=== PATIENT | male | born 1965 | race Caucasian/White ===

== ENCOUNTER 2022-10-12 12:51 | Outpatient (OUT) | payer MEDICARE, MEDICAID, SELFPAY ==
--- NOTE | 2022-10-12 12:56 | CT_ITS ---
[address] [address] Patient Name: GOPAL YATES MRN: [id number] date: 1965 Sex: M Assigned Patient Location: CT Current Patient Location: CT Accession/Order Number: [id number] Exam Date: 10/12/2022 13:10 Report Date: 10/12/2022 16:35 At the request of: DOUGLAS JUÁREZ Procedure: CT chest wo con EXAMINATION: CT chest wo con HISTORY: Lymph Node Enlargement R59.9 COMPARISON: No relevant comparison available. TECHNIQUE: Multi-planar CT images were obtained without and/or with IV contrast as indicated by examination type. Axial, Coronal, and Sagittal images. Dose reduction techniques were achieved by using automated exposure control and/or adjustment of mA and/or kV according to patient size and/or use of iterative reconstruction technique. FINDINGS: LUNGS: Assess atelectasis within right lung base. No appreciable infiltrates or mass. A few tiny 3 mm calcified and noncalcified nodules scattered within the lungs. PLEURA: Small-moderate right pleural effusion, likely multinodular loculated. VASCULATURE: No abnormality. LIZBETH: No mass or adenopathy. MEDIASTINUM: No mass or adenopathy. CARDIAC: Atherosclerotic coronary artery disease. No pericardial effusion. AORTA: No aneurysm or dissection. CHEST WALL: No mass or axillary adenopathy. BONES: No bone lesion or fracture. LIMITED ABDOMEN: Numerous tiny stones within gallbladder. Limited images of the upper abdomen. OTHER: Negative. CT/CT chest wo con IMPRESSION: 1. No lymphadenopathy or suspicious hilar or enlargement. 2. Small-moderate right pleural effusion which appears to be loculated, likely multiloculated. There is associated passive atelectasis within right lung base. 3. Prominent atherosclerotic coronary artery disease. 4. Cholelithiasis. Electronically authenticated by: LEANN NARAYAN Date: 10/12/2022 16:35
== END 2022-10-12 12:52 | disposition home or self-care (01) ==
LOC: CT 12:51
PROVIDERS: PCP Family Medicine; Visit Provider Family Medicine
DX: R59.9 Enlarged lymph nodes, unspecified (principal)
CPT/HCPCS: 71250

== ENCOUNTER 2023-07-26 09:20 | Outpatient (OUT) | payer MEDICARE, SELFPAY ==
[2023-07-27 04:10] LABS: Testosterone 202 ng/dL (264-916)
== END 2023-07-26 09:21 | disposition home or self-care (01) ==
PROVIDERS: PCP Family Medicine; Visit Provider Family Medicine
DX: M25.512 Pain in left shoulder (principal)
CPT/HCPCS: 36415; 84403

== ENCOUNTER 2023-08-03 13:11 | Outpatient (OUT) | payer MEDICARE, SELFPAY ==
[2023-08-04 04:09] LABS: Testosterone 321 ng/dL (264-916)
== END 2023-08-03 13:12 | disposition home or self-care (01) ==
LOC: LAB 13:13
PROVIDERS: PCP Family Medicine; Visit Provider Family Medicine
DX: R79.89 Other specified abnormal findings of blood chemistry (principal)
CPT/HCPCS: 36415; 84403

== ENCOUNTER 2023-08-30 12:39 | Outpatient (REF) | payer MEDICARE, SELFPAY ==
[2023-08-30 15:37] LABS: Internal Control Within Normal Limits; Occult Blood Positive
== END 2023-08-30 12:40 | disposition home or self-care (01) ==
LOC: LAB 12:39
PROVIDERS: PCP Family Medicine; Visit Provider Internal Medicine
DX: D64.9 Anemia, unspecified (principal)
CPT/HCPCS: G0328

== ENCOUNTER 2023-09-08 09:13 | Outpatient (OUT) | payer MEDICARE, SELFPAY ==
--- OUTSIDE RECORDS SUMMARY | 2023-09-08 09:33 | XMS_ITS | CCD ---
Author Organization [facility] Care Team Providers Care Supervisor Roving Name Role Phone Cristobal Butts Unavailable Douglas Juárez MD Primary Care Provider Douglas Juárez MD Primary Care Provider MD Douglas Juárez Primary Care Provider MD Cristobal Butts Attending Provider [phone] Douglas Juárez MD Primary Care Provider Ford Sam Unavailable Douglas Juárez MD Primary Care Provider [phone] MD Douglas Juárez Primary Care Provider DO Lambert Blanc Emergency Provider MD Cornelio Simon Admit Provider MD Cornelio Simon Attending Provider [phone] MD Ashutosh Thomas Other Provider MD Yvonne Barboza Other Provider HARRY Griggs Other Provider MD Sohan Kellogg Other Provider HARRY Griggs Attending Provider MD Gopal Larsen Emergency Provider MD Salvador Alonso Admit Provider MD Salvador Alonso Attending Provider [phone] MD Cristobal Butts Other Provider HARRY Luis Other Provider DO Scotty Kahn Attending Provider MD Sohan Kellogg Attending Provider ABHYANKAR, CONRAD Referring Unavailable ABHYANKAR, CONRAD Attending Unavailable HOY, M Primary Care Unavailable ABHYANKAR, CONRAD Referring Unavailable HOY, M Primary Care Unavailable KARAMLOU, JOSH Referring Unavailable HOY, M Primary Care Unavailable ABHYANKAR, CONRAD Referring Unavailable HOY, M Primary Care Unavailable HOY, M Primary Care Unavailable ABHYANKAR, CONRAD Referring Unavailable HOY, M Primary Care Unavailable ABHYANKAR, CONRAD Referring Unavailable MONIK DOTSON Attending Unavailable HOY, M Primary Care Unavailable ABHYANKAR, CONRAD Referring Unavailable ABHYANKAR, CONRAD Referring Unavailable HOY, M Primary Care Unavailable HOY, M Referring Unavailable ABHYANKAR, CONRAD Attending Unavailable HOY, M Primary Care Unavailable HOY, M Primary Care Unavailable ABHYANKAR, CONRAD Referring Unavailable MONIK DOTSON Attending Unavailable HOY, M Primary Care Unavailable ABHYANKAR, CONRAD Referring Unavailable KARAMLOU, JOSH Referring Unavailable HOY, M Primary Care Unavailable HOY, M Primary Care Unavailable ABHYANKAR, CONRAD Attending Unavailable ABHYANKAR, CONRAD Referring Unavailable ABHYANKAR, CONRAD Referring Unavailable HOY, M Primary Care Unavailable ABHYANKAR, CONRAD Referring Unavailable HOY, M Primary Care Unavailable MONIK DOTSON Attending Unavailable ABHYANKAR, CONRAD Referring Unavailable HOY, M Primary Care Unavailable KARAMLOU, JOSH Referring Unavailable HOY, M Primary Care Unavailable ABHYANKAR, CONRAD Referring Unavailable HOY, M Primary Care Unavailable ABHYANKAR, CONRAD Referring Unavailable HOY, M Primary Care Unavailable ABHYANKAR, CONRAD Referring Unavailable HOY, M Primary Care Unavailable ABHYANKAR, CONRAD Referring Unavailable HOY, M Primary Care Unavailable HOY, M Primary Care Unavailable ABHYANKAR, CONRAD Referring Unavailable KARAMLOU, JOSH Referring Unavailable HOY, M Primary Care Unavailable ABHYANKAR, CONRAD Referring Unavailable DOUGLAS JUÁREZ Primary Care Unavailable ABHYANKAR, CONRAD Referring Unavailable ABIKMBERLYANKAR, CONRAD Attending Unavailable DOUGLAS JUÁREZ Primary Care Unavailable Ashutosh Thomas Unavailable Douglas Juárez MD Primary Care Provider MD Douglas Juárez Primary Care Provider DO Lambert Blanc Emergency Provider [phone] MD Cornelio Simon Admit Provider MD Cornelio Simon Attending Provider MD Ashutosh Thomas Other Provider MD Yvonne Barboza Other Provider HARRY Griggs Other Provider [phone] MD Sohan Kellogg Other Provider HARRY Griggs Attending Provider MD Gopal Larsen Emergency Provider MD Salvador Alonso Admit Provider MD Cristobal Butst Other Provider HARRY Luis Other Provider DO Scotty Kahn Attending Provider [phone] MD Sohan Kellogg Attending Provider [phone] MD Caleb Farrar Admit Provider [phone] MD Caleb Farrar Attending Provider CRISTOBAL BUTTS Admitting Unavailable CRISTOBAL BUTTS Attending Unavailable DR DOUGLAS OBRIEN Primary Care Unavailable CRISTOBAL BUTTS Consulting Unavailable ALEN CEDILLO Admitting Unavailable ALEN CEDILLO Attending Unavailable DR DOUGLAS OBRIEN Primary Care Unavailable ALEN CEDILLO Consulting Unavailable PAOLA SMITH Admitting Unavailable PAOLA SMITH Attending Unavailable DR DOUGLAS OBRIEN Primary Care Unavailable PAOLA SMITH Consulting Unavailable KISHOR, BROCK Vizcarra Admitting Unavailable KISHOR, BROCK Vizcarra Attending Unavailable MARQUITA ., DR COLE Primary Care Unavailable Fidel Gongora Consulting Unavailable JOSE MANUELANDER, BROCK Vizcarra Consulting Unavailable KISHOR, BROCK Vizcarra Admitting Unavailable KISHOR, BROCK Vizcarra Attending Unavailable MARQUITA ., DR COLE Primary Care Unavailable MISC, DR GARCÍA Admitting Unavailable MISC, DR GARCÍA Attending Unavailable HOY ., DR COLE Referring Unavailable HOY ., DR COLE Primary Care Unavailable MISC, DR GARCÍA Consulting Unavailable HOY ., DR COLE Admitting Unavailable HOY ., DR COLE Attending Unavailable HOY ., DR COLE Referring Unavailable HOY ., DR COLE Primary Care Unavailable HOY ., DR COLE Consulting Unavailable MISC, DR GARCÍA Admitting Unavailable MISC, DR GARCÍA Attending Unavailable HOY ., DR COLE Primary Care Unavailable MISC, DR GARCÍA Consulting Unavailable BAKHOUS, AZIZ Admitting Unavailable BECKYSMICAELAIZ Attending Unavailable MARQUITA ., DR COLE Primary Care Unavailable BAKHOUS, AZIZ Consulting Unavailable DO Vikash Pope Attending Provider GARFIELD COURTNEY Attending Unavailable CASIMIRO SOSA Attending Unavailable Christine Larsenandra Admitting Unavailable Hoy, M Primary Care Unavailable Eddy Larsen Attending Unavailable Chava, Eddy Admitting Unavailable Hoy, M Primary Care Unavailable Eddy Larsen Attending Unavailable Hoy, M Primary Care Unavailable Christine Larsenandra Admitting Unavailable Eddy Larsen Attending Unavailable Sohan Kellogg Admitting Unavailable Sohan Kellogg Attending Unavailable Hoy, M Primary Care Unavailable Scotty Kahn Attending UnavailSalvador Mena Admitting Unavailable Ashutosh Thomas Consulting Unavailable Hoy, M Primary Care Unavailable Bakhous, Aziz Consulting Unavailable Primo Luis Consulting Unavailable Caleb Farrar Admitting Unavailable Vikash Pope Attending Unavailable Ashutosh Thomas Consulting Unavailable Hoy, M Primary Care Unavailable Bakhous, Aziz Consulting Unavailable Chava, Eddy Consulting Unavailable Hoy, M Primary Care Unavailable Chava Eddy Admitting Unavailable Eddy Larsen Attending Unavailable Hoy, M Primary Care Unavailable Tamra, Yvonne Admitting Unavailable Yvonne Barboza Attending Unavailable EDDY LARSEN Attending Unavailable EDDY LARSEN Attending Unavailable Allergies Allergy Classification Reported Allergen(s) Allergy Type Date of Onset Reaction(s) Facility (4 sources) sulfaSALAzine Drug Allergy Unknown [employer] Other (20 sources) Sulfonamides (Antibiotic); Translations: [SULFA (SULFONAMIDE ANTIBIOTICS)] Propensity to adverse reactions to drug 2 Unknown [facility] (1 source) Sulfonamide Drug allergy Unknown [employer] Other (1 source) Sulfonamides (Antibiotic) Drug allergy (disorder) [facility] (1 source) Sulfonamides (Antibiotic) Drug allergy (disorder) 3 [facility] Medications Current Medications Medication Drug Class(es) Dates Sig (Normalized) Sig (Original) aspirin 81 mg delayed release oral tablet (20 sources) Platelet Aggregation Inhibitor, Nonsteroidal Anti-inflammatory Drug Start: 05-05-2022 take 81 mg by mouth once daily Aspirin Active 81 MG PO Daily May 05, 2022 1:00am take 1 tablet by mouth once cody y Aspirin 81 81 MG 1 tablet Orally Once a day Active aspirin 81 mg ca p Take by mouth. 0 Active Comment on above: Take by mouth. bumetanide 2 mg oral tablet (20 sources) Loop Diuretic Start: 06-15-2022 take 2 mg by mouth twice daily Bumetanide Active 2 MG PO BID@0800,1600 60 June 15, 2022 12:00am Start: 05-05-2022 End: 06-15-2022 take 2 mg by mouth once daily Bumetanide Discontinued 2 MG PO Daily May 05, 2022 1:00am June 15, 2022 2:21pm take 2 mg by mouth e very twenty-four hours Bumetanide 2 MG as directed Orally every 24 hrs Active Comment on above: Take 2 mg by mouth o nce daily. carvedilol 25 mg oral tablet (20 sources) alpha-Adrenergic Luis, beta-Adrenergic Luis Start: 05-05-2022 Carvedilol Active 25 MG PO Twice daily May 05, 2022 1:00am takes a pill and a half. Start: 05-05-2022 take 37.5 mg by mout h twice daily Carvedilol Active 37.5 MG PO Twice daily May 05, 2022 1:00am Comment on above: Take 25 mg by mouth twice daily with meals. 1/2 tabstwice daily cholecalciferol 0.05 mg oral capsule (10 sources) Vitamin D Start: 05-05-19 take 1 capsule by mouth once daily Cholecalciferol (Vitamin D3) (Vitamin D3) 50 mcg (2,000 unit) capsule Active 50 MCG PO Daily May 05, 2022 1:00am cyproheptadine hydrochloride 4 mg oral tablet (7 sources) Start: 05-21-19 take 4 mg by mouth twice daily Cyproheptadine Active 4 MG PO Twice daily May 20, 2022 1:00am Start: 05-20-2022 take 4 mg by mouth once daily Cyproheptadine Active 4 MG PO Daily May 20, 2022 12:00am donepezil (1 source) Aricept Active ezetimibe 10 mg oral tablet (20 sources) Dietary Cholesterol Absorption Inhibitor Start: 3 take 10 mg by mouth once daily Ezetimibe Active 10 MG PO Daily May 05, 2022 1:00am Comment on above: Take 10 mg by mouth once daily. hydrALAZINE hydrochloride 50 mg oral tablet (20 sources) Arteriolar Vasodilator Start: 3 take 50 mg by mouth three times daily Hydralazine Active 50 MG PO Three times daily May 05, 2022 1:00am Comment on above: Take 50 mg by mouth three times daily. insulin aspart, human (20 sources) Insulin Analog Start: 3 Insulin Aspart U-100 Active 0 .ROUTE .COMPLEX May 05, 2022 1:00am 140-200 give 8 units >200 give 12 units Start: 05-05-2022 Insulin Aspart U-100 Active 0 .ROUTE .COMPLEX May 05, 2022 12:00am 140-200 give 8 units >200 give 12 units Start: 05-05-2022 Insulin Aspart U-100 Active 0 .ROUTE .COMPLEX May 05, 2022 12:00am Per pt Insulin Aspart F lexPen 100 UNIT/ML INJECT PER SCALEIF SUGAR IS Active 3 ml insulin glargine 100 unt/ml pen injector (10 sources) Insulin Analog Lantus SoloStar 100 UNIT/ML as directed Subcutaneous 16 UNITS ONCE A DAY Active Insulin Glargine (Lantus U-100 Insulin) 100 unit/mL solution (10 sources) Start: 05-05-2022 inject 16 [IU] by subcutaneous injection once daily in the morning Insulin Glargine (Lantus U-100 Insulin) 100 unit/mL solution Active 16 UNIT SUBCUT Every morning May 05, 2022 1:00am Start: 05-05-2022 inject 16 [IU] by adams bcutaneous injection once daily in the morning Insulin Glargine (Lantus U-100 Insulin) 100 unit/mL solution Active 16 UNIT SUBCUT Every morning May 05, 2022 12:00am Start: 05-05-2022 Insulin Glargi ne (Lantus U-100 Insulin) 100 unit/mL solution Active 0 .ROUTE .COMPLEX May 05, 2022 12:00am 16 U in the AM Start: 05-05-2022 Insulin Glargi ne (Lantus U-100 Insulin) 100 unit/mL solution Active 0 .ROUTE .COMPLEX May 05, 2022 12:00am Per pt 10 ml iron sucrose 20 mg/ml injection (3 sources) Parenteral Iron Replacement Start: 07-15-2021 take 10 mL intravenously every week Venofer 20 MG/ML 200 mg or 10 ml Intravenous weekly for 35 days Jun, Active take 10 mL intravenously every w [place] Venofer 20 MG/ML 200 mg or 10 ml Intravenous weekly for 35 days Active isosorbide mononitrate 10 mg oral tablet (10 sources) Nitrate Vasodilator take 1 tablet by mouth every eight hours Isosorbide Mononitrate 10 MG 1 tablet Orally THREE TIMES A DAY Active isosorbide dinitrate 10 mg oral tablet (10 sources) Nitrate Vasodilator Start: 05-05-19 take 10 mg by mouth three times daily Isosorbide Dinitrate Active 10 MG PO Three times daily May 05, 2022 1:00am levothyroxine sodium 0.1 mg oral tablet (20 sources) l-Thyroxine Start: 05-05-19 take 100 ug by mouth once daily Levothyroxine Active 100 MCG PO Daily May 05, 2022 1:00am take 1 tablet by rocio th once daily in the morning Levothyroxine Sodium 100 MCG 1 tablet in the morning on an empty stomach Orally Once a day Active take 1 capsule by mo uth once daily before breakfast levothyroxine 100 mcg cap Take 100 mcg b y mouth daily before breakfast. 0 Active Comment on above: Take 100 mcg by mout h daily before breakfast. liothyronine sodium 0.005 mg oral tablet (17 sources) l-Triiodothyronine Start: take 10 ug by mouth once daily Liothyronine Active 10 MCG PO Daily May 20, 2022 1:00am take 2 tablets by mouth once jena ly Liothyronine Sodium 5 MCG TAKE TWO TABLETS BY MOUTH ONCE DAILY Oral for 30 Active Multivitamin (Multi-Vitamin) Tablet (1 source) Start: 05-05-2022 take 1 tablet by mouth once daily Multivitamin (Multi-Vitamin) Tablet Active 1 TAB PO Daily May 05, 2022 12:00am Multivitamin preparation (14 sources) Start: 05-05-2022 take 1 tablet by mouth once daily Multivitamin Active 1 TAB PO Daily May 05, 2022 1:00am Start: 05-05-2022 take 1 tablet by rocio th once daily Multivitamin Active 1 TAB PO Daily May 05, 2022 12:00am take 1 tablet by rocio th once daily Multi Vitamin - 1 tablet Orally Once a day Active NIFEdipine 30 mg osmotic 24 hr extended release oral tablet (20 sources) Dihydropyridine Calcium Channel Luis Start: 05-05-2022 take 30 mg by mouth twice daily Nifedipine Active 30 MG PO Twice daily May 05, 2022 1:00am take 1 tablet by rocio th every twelve hours NIFEdipine ER 30 MG 1 tablet on an empty stomach Orally TWICE A DAY Active take 1 tablet by mouth once cody y NIFEdipine XL (ADALAT CC) 30 mg 24 hr tablet Take 30 mg by mouth once daily. 0 Active Comment on above: Take 30 mg by mouth once daily. omeprazole 40 mg delayed release oral capsule (20 sources) Proton Pump Inhibitor Start: 05-05-2022 take 40 mg by mouth twice daily Omeprazole Active 40 MG PO Twice daily May 05, 2022 1:00am Start: 05-05-2022 take 40 mg by mouth once daily Omeprazole Active 40 MG PO Daily May 05, 2022 12:00am take 1 tablet by rocio th once daily PriLOSEC OTC 20 MG 1 tablet 30 minutes before morning meal Orally Once a day Active take 1 tablet by rocio th once daily Omeprazole Magnesium 20 mg tablet Take 20 mg by mouth once daily. 0 Active Comment on above: Take 20 mg by mouth once daily. pravastatin sodium 40 mg oral tablet (3 sources) HMG-CoA Reductase Inhibitor Start: 06-11-2022 take 40 mg by mouth once daily Pravastatin Active 40 MG PO Daily June 11, 2022 12:00am sodium bicarbonate 650 mg oral tablet (20 sources) Start: 05-08-2022 take 1300 mg by mouth twice daily Sodium Bicarbonate Active 1300 MG PO Twice daily 120 May 08, 2022 1:00am take 1 tablet by rocio th every twelve hours Sodium Bicarbonate 650 MG 1 tab(s) Orall y bid for 90 day(s) Active Comment on above: Take 650 mg by mouth twice daily. Completed/Discontinued Medications Medication Drug Class(es) Dates Sig (Normalized) Sig (Original) acetaminophen 325 mg / HYDROcodone bitartrate 5 mg oral tablet (5 sources) Opioid Agonist Start: 05-28-2022 End: 06-11-2022 take 1 tablet by mouth every six hours Hydrocodone-Acetam inophen Discontinued 1 TAB PO Q6H 16 10May 28, 2022 June 11, 2022 4:14pm amoxicillin 500 mg / clavulanate 125 mg oral tablet (9 sources) Penicillin-class Antibacterial Start: 05-08-2022 End: 05-25-2022 take 1 tablet by mouth twice daily Amoxicillin-Pot Clavulanate (Augmentin) 500-125 mg tablet Discontinued 1 TAB PO Twice daily May 08, 2022 1:00am May 25, 2022 3:13pm clopidogrel 75 mg oral tablet (14 sources) [id number] Platelet Inhibitor Start: 05-05-2022 End: 05-20-2022 take 75 mg by mouth once daily Clopidogrel Discontinued 75 MG PO Daily May 05, 2022 1:00am May 20, 2022 1:55pm take 1 tablet by rocio th every twenty-four hours Plavix 75 MG 1 tablet Orally Once a day Active ertapenem 1000 mg injection (6 sources) Penem Antibacterial Start: 05-22-2022 End: 06-15-2022 take 1 g intravenously once daily Ertapenem (Invanz) 1 gram recon soln Discontinued 0.5 GM IV Daily 40 40 May 22, 2022 1:00am June 15, 2022 3:19pm at home ferrous sulfate 325 mg oral tablet (20 sources) Start: 05-05-2022 End: 05-20-2022 take 325 mg by mouth once daily Ferrous Sulfate Discontinued 325 MG PO Daily May 05, 2022 1:00am May 20, 2022 1:56pm take 1 tablet by mouth once cody y Ferrous Sulfate 325 (65 Fe) MG 1 tablet Orally Once a day Active Comment on above: Take 325 mg by mouth daily with breakfast. insulin detemir (15 sources) Insulin Analog insulin detemir (LEVEMIR FLEXPEN SUBCUTANEOUS) Inject subcutaneously. 0 Active Comment on above: Inject subcutaneousl y. Multivitamin capsule (15 sources) take 1 capsule by mouth once daily Multivitamin capsule Take 1 capsule by mouth once daily. 0 Active Comment on above: Take 1 capsule by mo ut once daily. potassium chloride 10 meq extended release oral tablet (20 sources) Start: End: take 10 mEq by mouth once daily Potassium Chloride Discontinued 10 MEQ PO Daily May 05, 2022 1:00am May 20, 2022 2:00pm take 1 tablet by mouth twice jena ly potassium chloride (K-TAB) 10 mEq tablet Take 10 mEq by mouth twice daily. 0 Active Comment on above: Take 10 mEq by mouth twice daily. Problems Active Problems Problem Classification Problem Date Documented Da te Episodic/Chronic Cardiac dysrhythmias (1 source) Palpitations; Translations: [PALPITATIONS] Onset: 05-18-2022 Episodic Chronic kidney disease (20 sources) Chronic kidney disease stage 4; Translations: [Chronic kidney disease, stage 4 (severe)] Onset: 06-03-2021 Resolved: 12-09-2021 Chronic Chronic kidney disease (1 source) Chronic kidney disease; Translations: [Stage 3b chronic kidney disease (HCC)] Onset: 10-02-2021 Chronic ulcer of skin (20 sources) Non-pressure chronic ulcer of other part of right foot with necrosis of bone; Translations: [Ulcer of right foot with necrosis of bone] Onset: 05-04-2022 05-06-2022 Chronic Congestive heart failure; nonhypertensive (3 sources) Heart failure, unspecified; Translations: [Chronic systolic (congestive) heart failure] Onset: 12-11-2021 Chronic Coronary atherosclerosis and other heart disease (20 sources) Coronary arteriosclerosis; Translations: [Atherosclerotic heart disease of [place] coronary artery without angina pectoris] Onset: 06-03-2021 Resolved: 12-09-2021 Chronic Deficiency and other anemia (19 sources) Anemia of renal disease; Translations: [Anemia in chronic kidney disease] 05-06-2022 Chronic Deficiency and other anemia (8 sources) Anemia in chronic kidney disease; Translations: [Anemia due to stage 3b chronic kidney disease (HCC)] Onset: 06-03-2021 Resolved: 12-09-2021 Chronic Deficiency and other anemia (8 sources) Anemia in chronic kidney disease; Translations: [Anemia in chronic kidney disease] Chronic Deficiency and other anemia (20 sources) Anemia co-occurrent and due to chronic kidney disease stage 3; Translations: [Anemia due to stage 3b chronic kidney disease (HCC)] Onset: 10-08-2021 Chronic Deficiency and other anemia (8 sources) Iron deficiency anemia; Translations: [Iron deficiency anemia, unspecified] Episodic Deficiency and other anemia (1 source) Iron deficiency anemia, unspecified Episodic Deficiency and other anemia (3 sources) Anemia; Translations: [Anemia, unspecified] 06-11-2022 Episodic Deficiency and other anemia (1 source) Deficiency and other anemia; Translations: [Anemia due to stage 3b chronic kidney disease (HCC)] Onset: 10-08-2021 Diabetes mellitus with complications (20 sources) Disorder of kidney due to diabetes mellitus; Translations: [Type 2 diabetes mellitus with diabetic nephropathy] Onset: 06-03-2021 Resolved: 12-09-2021 Chronic Diabetes mellitus without complication (1 source) Diabetes mellitus without complication; Translations: [Type 2 diabetes mellitus with foot ulcer] Onset: 07-15-2022 Disorders of lipid metabolism (1 source) Hyperlipidemia, unspecified; Translations: [HYPERLIPIDEMIA UNSPECIFIED] Onset: 05-18-2022 Chronic Essential hypertension (3 sources) Essential (primary) hypertension; Translations: [ESSENTIAL PRIMARY HYPERTENSION] Onset: 12-11-2021 Chronic Fluid and electrolyte disorders (20 sources) Acidosis; Translations: [Metabolic acidosis] Onset: 06-03-2021 Resolved: 12-09-2021 Episodic Hypertension with complications and secondary hypertension (20 sources) Malignant hypertensive chronic kidney disease; Translations: [Hypertensive chronic kidney disease with stage 1 through stage 4 chronic kidney disease, or unspecified chronic kidney disease] Onset: 06-03-2021 Resolved: 12-09-2021 Chronic Infective arthritis and osteomyelitis (except that caused by tuberculosis or sexually transmitted disease) (20 sources) Osteomyelitis; Translations: [Osteomyelitis, unspecified] Onset: 05-18-2022 05-05-2022 Chronic Nutritional deficiencies (7 sources) Vitamin D deficiency; Translations: [Vitamin D deficiency, unspecified] Onset: 05-01-2022 Chronic Other aftercare (2 sources) Antibiotic therapy indicated; 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] 06-12-2022 Episodic Other and ill-defined heart disease (4 sources) Heart disease, unspecified; Translations: [HEART DISEASE UNSPECIFIED] Onset: 07-09-2022 Chronic Other circulatory disease (1 source) Other specified symptoms and signs involving the circulatory and respiratory systems Episodic Other endocrine disorders (5 sources) Hyperparathyroidism; Translations: [Hyperparathyroidism , unspecified] Chronic Other endocrine disorders (2 sources) Hyperparathyroidism, unspecified; Translations: [HYPERPARATHYROIDISM UNSPECIFIED] Onset: 05-01-2022 Chronic Other injuries and conditions due to external causes (6 sources) Surgical wound finding; Translations: [Other injury of unspecified body region, initial encounter] 05-21-2022 Episodic Other nervous system disorders (5 sources) Acute postoperative pain; Translations: [Other acute postprocedural pain] 05-28-2022 Episodic Residual codes; unclassified (3 sources) History of clinical finding in subject; Translations: [Personal history of other specified conditions] 06-11-2022 Episodic Residual codes; unclassified (1 source) Edema, unspecified; Translations: [EDEMA UNSPECIFIED] Onset: 05-18-2022 Episodic Respiratory failure; insufficiency; arrest (adult) (1 source) Respiratory failure; insufficiency; arrest (adult); Translations: [Hypertensive heart and chronic kidney disease with heart failure and with stage 5 chronic kidney disease, or end stage renal disease] Onset: 05-28-2022 Thyroid disorders (3 sources) Hypothyroidism; Translations: [Hypothyroidism, unspecified] Onset: 05-18-2022 Chronic Unclassified (1 source) 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 involvement without evidence of necrosis; Translations: [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 involvement without evidence of necrosis] Onset: 07-22-2022 Unclassified (1 source) Acidosis, unspecified; Translations: [Acidosis, unspecified] Onset: 06-11-2022 Past or Other Problems Problem Classification Problem Date Documented Date Episodic/Chronic Acute and unspecified renal failure (7 sources) Injury of kidney; Translations: [Acute kidney failure, unspecified] Onset: 06-11-2022 06-11-2022 Episodic Deficiency and other anemia (4 sources) Anemia, unspecified; Translations: [Anemia, unspecified] Onset: 06-11-2022 06-11-2022 Episodic Fever of unknown origin (11 sources) Fever; Translations: [Fever, unspecified] Onset: 06-11-2022 06-11-2022 Episodic Immunizations and screening for infectious disease (2 sources) Other specified abnormal immunological findings in serum; Translations: [Other and unspecified nonspecific immunological findings] Onset: 10-02-2021 Episodic Other aftercare (3 sources) alf (current) use of antibiotics; Translations: [Long-term (current) use of antibiotics] Onset: 06-11-2022 06-15-2022 Episodic Other injuries and conditions due to external causes (7 sources) Other injury of unspecified body region, initial encounter; Translations: [Open wound(s) (multiple) of unspecified site(s), without mention of complication] Onset: 05-20-2022 05-25-2022 Episodic Other nervous system disorders (1 source) Other acute postprocedural pain; Translations: [Other acute postprocedural pain] Onset: 05-28-2022 Episodic Other screening for suspected conditions (not mental disorders or infectious disease) (4 sources) Other specified abnormal findings of blood chemistry; Translations: [OTH SPEC ABNORMAL FINDINGS BLD CHEM] Onset: 09-30-2021 Episodic Residual codes; unclassified (4 sources) Personal history of other specified conditions; Translations: [Personal history of other specified diseases] Onset: 06-11-2022 06-11-2022 Episodic Residual codes; unclassified (3 sources) Other specified postprocedural states; Translations: [Other postprocedural status] Onset: 06-11-2022 06-15-2022 Episodic Results Test Name Value Interpretation Reference Range Facility Physician Referralon 024 Physician Referral [id number] IFF Normal [facility] Office Visiton 03-02-2023 Follow-up visit [id number] Gopal Yates 1965 [facility] Provider Department Center 03/02/2023 AshleighRAULBHANUCASIMIRO DARDEN GADIEL [facility] Family History Problem Relation Age of Onset Coronary artery disease Father Coronary artery disease Paternal Grandmother Family Status - Relation Status Age at Father Paternal Grandmother Level of Service:30292 [place] OFFICE/OUTPATIENT ESTABLISHED LOW MDM 20-29 MIN Normal [facility] Vancomycin,Randomon 08-07-19 23 Vancomycin,Random 9.4 ug/mL Normal 5.0-20.0 [facility] Comment on above: Order Comment: Date of last dose?: [id number] Time of last dose?: 1530 Result Comment: Last dose: - PERFORMED BY: [address] [place] [address] PATHOLOGIST INTERNAL MEDICINE PHYSICIAN SESAR VAUGHN M.D. Performed By: #### C RP #### [facility] [address] [place] [address] Office Visiton 07-22-2022 Follow-up visit [id number] Gopal Yates 1965 [facility] Provider Department Center 07/22/2022 [id number]-BKAQMKLSLGARFIELD BECK GADIEL [facility] Family History Problem Relation Age of Onset Coronary artery disease Father Coronary artery disease Paternal Grandmother Family Status - Relation Status Age at Father Paternal Grandmother Level of Service:68799 ND OFFICE/OUTPATIENT ESTABLISHED MOD MDM 30-39 MIN Reason for Visit and Comments: Congestive Heart Failure [127] Coronary Artery Disease [187] Normal [facility] [place] Superficial Wound Cultureon 07-22-2022 Superficial Wound Culture Light Normal Skin Efren 2 Days PERFORMED BY: [address] [place] [address] PATHOLOGIST INTERNAL MEDICINE PHYSICIAN SESAR VAUGHN M.D. Normal [facility] Comment on above: Performed By: #### C RP #### [facility] [address] [place], [place] [id number] [facility] ECHOCARDIO M/2D COMPLETEon 0 07-09-2022 ECHOCARDIO M/2D COMPLETE Patient: GOPAL YATES Exam Date: 07/09/2022 : 1965 Gender:M Ordering : [facility] Admission #: [id number] Family : Order #: [id number] CLICK HERE TO VIEW EXAM ECHOCARDIOGRAM REPORT PROCEDURE: CARDIO PULMONARY ECHOCARDIO M/2D COMP INDICATIONS: Systolic dysfunction, hypertension COMPARISON: None. DESCRIPTION: COMPLETE ECHOCARDIOGRAM Real-time transthoracic echocardiography with 2D, M-mode, spectral and color flow Doppler performed. QUALITY: Technical quality was good. LEFT VENTRICLE: Normal chamber size. Thickened septal wall. Diffuse global hypokinesis. LV EF: Mildly to moderately reduced left ventricular ejection fraction, (40%). DIASTOLIC: Grade III diastolic dysfunction. ATRIAL SEPTUM: Visually appears intact LEFT ATRIUM: Moderate dilatation. RIGHT ATRIUM: Moderate dilatation. RIGHT VENTRICLE: Moderate dilatation. Mildly reduced systolic function. TRICUSPID VALVE: Normal mobility and thickness. No stenosis with mild regurgitation. Doppler studies reveal mildly (35-45) elevated right sided pressures. RVSP 44 mmHg MITRAL VALVE: Normal mobility and thickness. No evidence of mitral valve stenosis. Mild mitral annular calcification. Mild mitral regurgitation. AORTIC VALVE: Normal trileaflet appearance. No visible sclerosis. Normal leaflet mobility. No evidence of aortic valve stenosis. No aortic regurgitation. AORTIC ROOT: Normal diameter and appearance. PULMONIC VALVE: Normal thickness and mobility. Normal with Mild regurgitation. PERICARDIUM: No evidence of pericardial effusion. IVC: IVC is dilated (2.5 cm) with no collapse. PLEURA: CONCLUSION: 1. Left ventricular systolic function is mildly to moderately reduced. LVEF is 40%. 2. Moderate right ventricular dilatation with mildly reduced systolic function. 3. Mild mitral and tricuspid regurgitation. 4. Moderate biatrial dilatation. 5. Mildly elevated right-sided pressures. RVSP is 44 mmHg. 6. No pericardial effusion. Adult Echocardiography Procedure Report Left Ventricle LVEDD (3.7 - 5.6 cm): 5.74 cm LVESD (2.2 - 4.0 cm): 4.35 cm LVIVS thickness (0.6 - 1.2 cm): 1.78 cm LVPW thickness (0.5 - 1.0 cm): 1.08 cm e': 0.07 m/s E - e': 13.40 LVOT Max Gradient: 2.07 mm[Hg] Peak Velocity (LVOT): 0.72 m/s Mean Velocity (LVOT): 0.50 m/s LVOT Diameter 2.46 cm Left Ventricular Ejection Fraction: 40 % Left Atrium LA Volume Index (2D A2C): 107.58 ml, 107.58 ml Left Atrium Systolic Dimension: 5.41 cm Mitral Valve MV E to A Ratio: 3.88 Mitral Valve A-Wave Peak Velocity: 0.23 m/s Mitral Valve E-Wave Peak Velocity: 0.91 m/s Right Ventricle Aorta AO Root Diam: 3.86 cm Aortic Valve AoV Area (Peak Roderick): 3.46 cm2, 3.46 cm2 Peak Velocity(Antegrade Flow): 0.99 m/s Peak Gradient(Antegrade Flow): 3.91 mm[Hg] Tricuspid Valve Peak Velocity (Regurgitant Flow): 2.39 m/s, 2.69 m/s Peak Velocity: 0.46 m/s Pulmonic Valve Peak Velocity: 1.26 m/s, 1.04 m/s Peak Gradient: 6.39 mm[Hg], 4.33 mm[Hg] Right Atrium Right Atrium Systolic Pressure: 94.69 ml, 94.69 ml Dictated by: Casimiro Sosa M.D. on 07/09/2022 at 20:21 Approved by: Casimiro Sosa M.D. on 07/09/2022 at 20:28 Normal [facility] Alanine aminotransferase [En zymatic activity/volume] in Serum or PlasmaOrdered By: Caleb Farrar on 06-15-2022 ALT [Catalytic activity/Vol] 17 U/L 7-52 [facility] Albumin [Mass/volume] in Ser um or Plasma by Bromocresol green (BCG) dye binding methoOrdered By: Caleb Farrar on 06-15-2022 Albumin BCG dye [Mass/Vol] 2.2 g/dL 3.5-5.7 [facility] Alkaline phosphatase [Enzyma tic activity/volume] in Serum or PlasmaOrdered By: Caleb Farrar on 06-15-2022 ALP [Catalytic activity/Vol] 148 U/L 34-104 [facility] Aspartate aminotransferase [ Enzymatic activity/volume] in Serum or PlasmaOrdered By: Obcheyennedaandrea Baconomar on 06-15-2022 AST [Catalytic activity/Vol] 35 U/L 13-39 [facility] Basophils Auto (Bld) [#/Vol] Ordered By: Obaydaandrea Daromar on 06-15-2022 Basophils (Bld) [#/Vol] 0.0 10*3/uL 0.0-0.2 [facility] Basophils/100 WBC Auto (Bld) Ordered By: Obcheyennedaandrea Daromar on 06-15-2022 Basophils/100 WBC (Bld) 0.6 % . [facility] Bilirubin.total [Mass/volume ] in Serum or PlasmaOrdered By: Caleb Baconomar on 06-15-2022 Bilirubin [Mass/Vol] 0.5 mg/dL 0.3-1.0 [facility] C reactive protein [Mass/vol ume] in Serum or PlasmaOrdered By: Ashutosh Thomas on 06-15-2022 CRP [Mass/Vol] 14.7 mg/dL 0.0-0.5 [facility] C-Reactive Proteinon 023 C-Reactive Protein 14.7 mg/dL High 0.0-0.5 [facility] Comment on above: Result Comment: PERF ORMED BY: [place] [address] PATHOLOGIST INTERNAL MEDICINE PHYSICIAN SESAR VAUGHN M.D. Performed By: #### C #### [address] Calcium [Mass/volume] in Ser um or PlasmaOrdered By: Caleb Baconomar on 06-15-2022 Calcium [Mass/Vol] 8.1 mg/dL 8.6-10.3 [facility] Carbon dioxide, total [Moles /volume] in Serum or PlasmaOrdered By: Caleb Baconomar on 06-15-2022 CO2 [Moles/Vol] 18.0 mmol/L 21.0-31.0 [facility] Chloride [Moles/volume] in S yulissa or PlasmaOrdered By: Caleb Farrar on 06-15-2022 Chloride [Moles/Vol] 105 mmol/L 98-107 [facility] Complete Blood Count Auto Di ffon 06-15-2022 Basophils (Bld) [#/Vol] 0.0 10*3/uL Normal 0.0-0.2 [facility] Comment on above: Result Comment: PERF ORMED BY: [facility] [place] [address] PATHOLOGIST INTERNAL MEDICINE PHYSICIAN SESAR VAUGHN M.D. Performed By: #### G LULS #### Point of Care testing , Basophils/100 WBC (Bld) 0.6 % Normal . [facility] Comment on above: Performed By: #### G LULS #### Point of Care testing , Eosinophils (Bld) [#/Vol] 0.1 10*3/uL Normal 0.0-0.45 [facility] Comment on above: Performed By: #### G LULS #### Point of Care testing , Eosinophils/100 WBC (Bld) 2.0 % Normal . [facility] Comment on above: Performed By: #### G LULS #### Point of Care testing , Erythrocyte distribution width (RBC) [Ratio] 16.3 % High 12.0-14.8 [facility] Comment on above: Performed By: #### G LULS #### Point of Care testing , Hematocrit (Bld) [Volume fraction] 21.3 % Low 38.8-50.0 [facility] Comment on above: Performed By: #### G LULS #### Point of Care testing , Hemoglobin (Bld) [Mass/Vol] 7.1 g/dL Low 13.0-17.0 [facility] Comment on above: Performed By: #### G LULS #### Point of Care testing , Lymphocytes (Bld) [#/Vol] 0.4 10*3/uL Low 1.00-4.8 [facility] Comment on above: Performed By: #### G LULS #### Point of Care testing , Lymphocytes/100 WBC (Bld) 7.0 % Normal . [facility] Comment on above: Performed By: #### G LULS #### Point of Care testing , MCH (RBC) [Entitic mass] 27.1 pg Low 27.5-35.2 [facility] Comment on above: Performed By: #### G LULS #### Point of Care testing , MCV (RBC) [Entitic vol] 81.1 fL Low 83.5-101 [facility] Comment on above: Performed By: #### G LULS #### Point of Care testing , Mean Corpuscular HGB Conc 33.4 g/dL Normal 32.5-35.6 [facility] Comment on above: Performed By: #### G LULS #### Point of Care testing , Monocytes (Bld) [#/Vol] 0.6 10*3/uL Normal 0.0-0.8 [facility] Comment on above: Performed By: #### G LULS #### Point of Care testing , Monocytes/100 WBC (Bld) 9.2 % Normal . [facility] Comment on above: Performed By: #### G LULS #### Point of Care testing , Neutrophils (Bld) [#/Vol] 5.0 10*3/uL Normal 1.8-7.7 [facility] Comment on above: Performed By: #### G LULS #### Point of Care testing , Neutrophils/100 WBC (Bld) 81.2 % Normal . [facility] Comment on above: Performed By: #### G LULS #### Point of Care testing , NRBC% 0.3 /100{WBC} Normal 0-0.5 [facility] Comment on above: Performed By: #### G LULS #### Point of Care testing , Platelet mean volume (Bld) [Entitic vol] 9.0 fL Normal 6.6-10.1 [facility] Comment on above: Performed By: #### G LULS #### Point of Care testing , Platelets (Bld) [#/Vol] 172 10*3/uL Normal 150-450 [facility] Comment on above: Performed By: #### G LULS #### Point of Care testing , RBC (Bld) [#/Vol] 2.63 10*6/uL Low 3.90-5.60 [facility] Comment on above: Performed By: #### Lily NOEL #### Point of Care testing , WBC (Bld) [#/Vol] 6.2 10*3/uL Normal 4.1-10.5 [facility] Comment on above: Performed By: #### Lily NOEL #### Point of Care testing , Comprehensive Metabolic Pane stewart 06-15-2022 Albumin [Mass/Vol] 2.2 g/dL Low 3.5-5.7 [facility] Comment on above: Performed By: #### Lily NOEL #### Point of Care testing , Albumin/Globulin [Mass ratio] 0.6 {ratio} Normal [facility] Comment on above: Performed By: #### Lily NOEL #### Point of Care testing , ALP [Catalytic activity/Vol] 148 U/L High 34-104 [facility] Comment on above: Performed By: #### Lily NOEL #### Point of Care testing , ALT [Catalytic activity/Vol] 17 U/L Normal 7-52 [facility] Comment on above: Performed By: #### Lily NOEL #### Point of Care testing , Anion gap [Moles/Vol] 16.8 mmol/L High 6.0-15.0 [facility] Comment on above: Performed By: #### Lily NOEL #### Point of Care testing , AST [Catalytic activity/Vol] 35 U/L Normal 13-39 [facility] Comment on above: Performed By: #### Lily NOEL #### Point of Care testing , Bilirubin [Mass/Vol] 0.5 mg/dL Normal 0.3-1.0 [facility] Comment on above: Performed By: #### Lily NOEL #### Point of Care testing , Calcium [Mass/Vol] 8.1 mg/dL Low 8.6-10.3 [facility] Comment on above: Performed By: #### G LULS #### Point of Care testing , Chloride [Moles/Vol] 105 mmol/L Normal 98-107 [facility] Comment on above: Performed By: #### G LULS #### Point of Care testing , CO2 [Moles/Vol] 18.0 mmol/L Low 21.0-31.0 [facility] Comment on above: Performed By: #### G LULS #### Point of Care testing , Creatinine [Mass/Vol] 5.47 mg/dL High 0.70-1.30 [facility] Comment on above: Performed By: #### G LULS #### Point of Care testing , Creatinine Clr Calc Pharmacy 18.29 [facility] Comment on above: Result Comment: PERF ORMED BY: [facility] [address] [place] [address] PATHOLOGIST INTERNAL MEDICINE PHYSICIAN SESAR VAUGHN M.D. Performed By: #### G LULS #### Point of Care testing , GFR/1.73 sq M.predicted MDRD (S/P/Bld) [Vol rate/Area] 11.424 mL/min/{1.73_m2} Normal [facility] Comment on above: Performed By: #### G LULS #### Point of Care testing , Globulin (S) [Mass/Vol] 3.5 g/dL Normal [facility] Comment on above: Performed By: #### G LULS #### Point of Care testing , Glucose [Mass/Vol] 117 mg/dL High 74-109 [facility] Comment on above: Result Comment: [place] Glucose Reference Range is dependent on time and content of last meal. Glucose of more than 200 mg/dL in a nonstressed, ambulatory subject supports the diagnosis of Diabetes Mellitus. ADA recommended reference range Performed By: #### G LULS #### Point of Care testing , Potassium [Moles/Vol] 3.8 mmol/L Normal 3.5-5.1 [facility] Comment on above: Performed By: #### G LULS #### Point of Care testing , Protein [Mass/Vol] 5.7 g/dL Low 6.4-8.9 [facility] Comment on above: Performed By: #### G LULS #### Point of Care testing , Sodium [Moles/Vol] 136 mmol/L Normal 136-145 [facility] Comment on above: Performed By: #### G LULS #### Point of Care testing , Urea nitrogen [Mass/Vol] 114 mg/dL High 7-25 [facility] Comment on above: Performed By: #### G LULS #### Point of Care testing , Creatinine [Mass/volume] in Serum or PlasmaOrdered By: Caleb Farrar on 06-15-2022 Creatinine [Mass/Vol] 5.47 mg/dL 0.70-1.30 [facility] Eosinophils Auto (Bld) [#/Vo l]Ordered By: Caleb Farrar on 06-15-2022 Eosinophils (Bld) [#/Vol] 0.1 10*3/uL 0.0-0.45 [facility] Eosinophils/100 WBC Auto (Bl d)Ordered By: Caleb Farrar on 06-15-2022 Eosinophils/100 WBC (Bld) 2.0 % . [facility] Erythrocyte distribution wid th Auto (RBC) [Ratio]Ordered By: Caleb Farrar on 06-15-2022 Erythrocyte distribution width (RBC) [Ratio] 16.3 % 12.0-14.8 [facility] Globulin Calc (S) [Mass/Vol] Ordered By: Caleb Farrar on 06-15-2022 Globulin (S) [Mass/Vol] 3.5 g/dL [facility] Glucose Glucometer (BldC) [M ass/Vol]Ordered By: Vikash Pope on 06-15-2022 Glucose [Mass/Vol] 169 mg/dL [facility] Comment on above: Random Glucose Refer ence Range is dependent on time and content of last meal. Glucose of more than 200 mg/dL in a nonstressed, ambulatory subject supports the diagnosis of Diabetes Mellitus. Glucose Poct Glucometerson 0 06-15-2022 Glucose [Mass/Vol] 169 mg/dL Normal [facility] Comment on above: Result Comment: [place] Glucose Reference Range is dependent on time and content of last meal. Glucose of more than 200 mg/dL in a nonstressed, ambulatory subject supports the diagnosis of Diabetes Mellitus. PERFORMED BY: [place] [address] PATHOLOGIST INTERNAL MEDICINE PHYSICIAN SESAR VAUGHN M.D. Performed By: #### C RP #### [address] Glucose [Mass/Vol] 133 mg/dL Normal [facility] Comment on above: Result Comment: [facility] Glucose Reference Range is dependent on time and content of last meal. Glucose of more than 200 mg/dL in a nonstressed, ambulatory subject supports the diagnosis of Diabetes Mellitus. PERFORMED BY: [place] [address] PATHOLOGIST INTERNAL MEDICINE PHYSICIAN SESAR VAUGHN M.D. Performed By: #### G LUEVANGELISTA ####Point of Care testing, Glucose [Mass/volume] in Ser um or PlasmaOrdered By: Caleb Farrar on 06-15-2022 Glucose [Mass/Vol] 117 mg/dL 74-109 [facility] Comment on above: ADA recommended refe rence rangeRandom Glucose Reference Range is dependent on time and content of last meal. Glucose of more than 200 mg/dL in a nonstressed, ambulatory subject supports the diagnosis of Diabetes Mellitus. Hematocrit Auto (Bld) [Volum e fraction]Ordered By: Caleb Farrar on 06-15-2022 Hematocrit (Bld) [Volume fraction] 21.3 % 38.8-50.0 [facility] Hemoglobin [Mass/volume] in BloodOrdered By: Caleb Manzanor on 06-15-2022 Hemoglobin (Bld) [Mass/Vol] 7.1 g/dL 13.0-17.0 [facility] Laboratory - Chemistry and C hemistry - challengeOrdered By: Caleb Farrar on 06-15-2022 GFR/1.73 sq M.predicted MDRD (S/P/Bld) [Vol rate/Area] 11.424 mL/min/{1.73_m2} [facility] Leukocytes [#/volume] correc annalisa for nucleated erythrocytes in Blood by Automated counOrdered By: Obcheyennedaandrea Baconomar on 06-15-2022 WBC corrected for nucl RBC Auto (Bld) [#/Vol] 6.2 10*3/uL 4.1-10.5 [facility] Lymphocytes Auto (Bld) [#/Vo l]Ordered By: Obcheyennedah Jordiomar on 06-15-2022 Lymphocytes (Bld) [#/Vol] 0.4 10*3/uL 1.00-4.8 [facility] Lymphocytes/100 WBC Auto (Bl d)Ordered By: Obcheyennedah Jordiomar on 06-15-2022 Lymphocytes/100 WBC (Bld) 7.0 % . [facility] MCH Auto (RBC) [Entitic mass ]Ordered By: Obcheyennedaandrea Baconomar on 06-15-2022 MCH (RBC) [Entitic mass] 27.1 pg 27.5-35.2 [facility] MCHC Auto (RBC) [Mass/Vol]Or dered By: Obcheyennedah Daromar on 06-15-2022 MCHC (RBC) [Mass/Vol] 33.4 g/dL 32.5-35.6 [facility] MCV Auto (RBC) [Entitic vol] Ordered By: Obcheyennedah Jordiomar on 06-15-2022 MCV (RBC) [Entitic vol] 81.1 fL 83.5-101 [facility] Monocytes Auto (Bld) [#/Vol] Ordered By: Obcheyennedah Daromar on 06-15-2022 Monocytes (Bld) [#/Vol] 0.6 10*3/uL 0.0-0.8 [facility] Monocytes/100 WBC Auto (Bld) Ordered By: Obaydah Daromar on 06-15-2022 Monocytes/100 WBC (Bld) 9.2 % . [facility] Neutrophils Auto (Bld) [#/Vo l]Ordered By: Obcheyennedaandrea Baconomar on 06-15-2022 Neutrophils (Bld) [#/Vol] 5.0 10*3/uL 1.8-7.7 [facility] Neutrophils/100 WBC Auto (Bl d)Ordered By: Caleb Baconomar on 06-15-2022 Neutrophils/100 WBC (Bld) 81.2 % . [facility] No Panel InformationOrdered By: Obadelina Baconomar on 06-15-2022 Pharmacy Creatinine Clearance (Chem 18.29 [facility] Nucleated erythrocytes [Pres ence] in Blood by Automated countOrdered By: Obadelina Baconomar on 06-15-2022 Nucleated RBC Auto Ql (Bld) 0.3 /100{WBC} 0-0.5 [facility] Platelet mean volume Auto (B ld) [Entitic vol]Ordered By: Obcheyennedaandrea Baconomar on 06-15-2022 Platelet mean volume (Bld) [Entitic vol] 9.0 fL 6.6-10.1 [facility] Platelets Auto (Bld) [#/Vol] Ordered By: Obcheyennedaandrea Baconomar on 06-15-2022 Platelets (Bld) [#/Vol] 172 10*3/uL 150-450 [facility] Potassium [Moles/volume] in Serum or PlasmaOrdered By: Obadelina Baconomar on 06-15-2022 Potassium [Moles/Vol] 3.8 mmol/L 3.5-5.1 [facility] Protein [Mass/volume] in Ser um or PlasmaOrdered By: Obcheyennedaandrea Baconomar on 06-15-2022 Protein [Mass/Vol] 5.7 g/dL 6.4-8.9 [facility] RBC Auto (Bld) [#/Vol]Ordere d By: Obcheyennedah Jordiomar on 06-15-2022 RBC (Bld) [#/Vol] 2.63 10*6/uL 3.90-5.60 [facility] Serum or plasma albumin/glob ulin mass ratioOrdered By: Obcheyennedah Jordiomar on 06-15-2022 Albumin/Globulin [Mass ratio] 0.6 {ratio} [facility] Serum or plasma anion gap de terminationOrdered By: Obcheyennedah Daromar on 06-15-2022 Anion gap [Moles/Vol] 16.8 mmol/L 6.0-15.0 [facility] Sodium [Moles/volume] in Ser um or PlasmaOrdered By: Obaydah Daromar on 06-15-2022 Sodium [Moles/Vol] 136 mmol/L 136-145 [facility] Urea nitrogen [Mass/volume] in Serum or PlasmaOrdered By: Obaydah Daromar on 06-15-2022 Urea nitrogen [Mass/Vol] 114 mg/dL 10-13 [facility] WBC Auto (Bld) [#/Vol]Ordere d By: Obaydah Daromar on 06-15-2022 WBC (Bld) [#/Vol] 6.2 10*3/uL 4.1-10.5 [facility] Basic Metabolic Panelon 05-21 Anion gap [Moles/Vol] 15.6 mmol/L High 6.0-15.0 [facility] Comment on above: Performed By: #### C RP #### [facility] [address] Calcium [Mass/Vol] 8.3 mg/dL Low 8.6-10.3 [facility] Comment on above: Performed By: #### C RP #### [facility] [address] [place] [address] [place] Chloride [Moles/Vol] 107 mmol/L Normal 98-107 [facility] Comment on above: Performed By: #### C RP #### [facility] [address] [place] [id number] [place] CO2 [Moles/Vol] 18.4 mmol/L Low 21.0-31.0 [facility] Comment on above: Performed By: #### C RP #### [facility] [address] [place] [address] [place] Creatinine [Mass/Vol] 5.56 mg/dL High 0.70-1.30 [facility] Comment on above: Performed By: #### C RP #### [facility] [address] [place] [address] [place] Creatinine Clr Calc Pharmacy 18.00 [facility] Comment on above: Result Comment: PERF ORMED BY: [place] [address] PATHOLOGIST INTERNAL MEDICINE PHYSICIAN SESAR VAUGHN M.D. Performed By: #### C RP #### [facility] [address] [place] [address] [place] GFR/1.73 sq M.predicted MDRD (S/P/Bld) [Vol rate/Area] 11.203 mL/min/{1.73_m2} Normal [facility] Comment on above: Performed By: #### C RP #### [facility] [address] Glucose [Mass/Vol] 95 mg/dL Normal 74-109 [facility] Comment on above: Result Comment: [place] Glucose Reference Range is dependent on time and content of last meal. Glucose of more than 200 mg/dL in a nonstressed, ambulatory subject supports the diagnosis of Diabetes Mellitus. ADA recommended reference range Performed By: #### C RP #### [facility] [address] Potassium [Moles/Vol] 4.0 mmol/L Normal 3.5-5.1 [facility] Comment on above: Performed By: #### C RP #### [facility] [address] [place] [address] [place] Sodium [Moles/Vol] 137 mmol/L Normal 136-145 [facility] Comment on above: Performed By: #### C RP #### [facility] [address] [place] [address] [place] Urea nitrogen [Mass/Vol] 113 mg/dL High 7-25 [facility] Comment on above: Performed By: #### C RP #### [facility] [address] abdomen pelvis wo conon 0 06-14-2022 CT abdomen pelvis wo con [facility] [address] [place] [address] CT Scan Report Signed Patient: Gopal Yates MR#: [id number] : 1965 Acct:[id number] Age/Sex: 56 / M ADM Date: 06/11/22 Loc: Room: [address] [place] [address] Type: ADM IN Attending Dr: Caleb Farrar MD Copies to: Caleb Farrar MD Ordering Provider: Caleb Farrar MD Date of Service: 06/14/22 CT/CT abdomen pelvis wo con: Rule out hematoma, intraabdominal bleed ([id number]) CT/CT chest wo con: SOB CT CHEST, ABDOMEN AND PELVIS WITHOUT CONTRAST COMPARISON: Chest CT 05/20/2022 CLINICAL DATA: Shortness of breath, low-grade fever, acute kidney injury and anemia. Spiral images were obtained through the chest, abdomen and pelvis without contrast. Images of the chest were reviewed using both narrow and wide window settings. This CT exam was performed using one or more following dose reduction techniques: Automated exposure control, adjustment of the mA and/or kV according to patient size, or use of iterative reconstruction technique. The heart is slightly prominent. There is a trace amount pericardial fluid. Coronary artery calcification and/or stents are visualized. Ascending aorta is slightly ectatic. Minor plaque is visualized at the aortic arch and proximal great vessels. There are scattered mediastinal lymph nodes which are slightly larger than on the prior. The [place] are more difficult to assess without contrast. Subcutaneous edema is present. There is mild bilateral gynecomastia. Levoscoliosis and degenerative changes are present at the spine. There is a new large area of groundglass opacity involving the right upper lobe and smaller areas at the left upper lobe and perihilar right middle lobe. There is increasing fluid within the right major fissure and layering dependently on that side. The left pleural effusion is similar. There is compressive atelectasis adjacent to the left effusion, slightly increased. There is also additional atelectasis and/or scarring on the right. No pneumothorax is seen. A tiny nodular density is again seen at the lateral left upper lobe (axial image 44). Assessment of the intra-abdominal organs is slightly limited by the absence of contrast. There is some dependent hyperdensity within the gallbladder which could be gravel or sludge. No intrahepatic masses are identified. The spleen and pancreas show no acute findings. There is mild adrenal limb thickening. Mild bilateral perinephric fibrofatty stranding is present. There is renovascular disease. There are no definite stones or hydronephrosis. Atherosclerotic plaque is present at the aorta and iliac arteries. There are small lymph nodes. There is a trace amount of free fluid at the right paracolic gutter. Diffuse subcutaneous edema is seen. There is no retroperitoneal hematoma. The small bowel loops are not disproportionately distended. There is stool within the colon. Slight dextroscoliotic curvature and mild degenerative changes are seen at the spine, greatest at the lower facets. Images through the pelvis show no dilated small bowel. There is stool within the colon. No prominent diverticular disease is noted. No appendiceal inflammation is seen. The urinary bladder shows no CT abnormalities. The prostate is within normal limits for size. There is free fluid within the pelvis. There is a peritoneal dialysis catheter which enters the right inferior periumbilical region and terminates at the deep pelvis on the right. There is additional atherosclerotic disease. Subcutaneous edema is visualized. There is no evidence of hematoma. CT/CT chest wo con IMPRESSION: BILATERAL PLEURAL-PARENCHYMAL CHANGES WITH INTERVAL WORSENING SINCE THE PRIOR. MEDIASTINAL LYMPH NODES, SLIGHTLY INCREASED IN SIZE AND POTENTIALLY REACTIVE. MILD CARDIOMEGALY. GALLBLADDER SLUDGE AND/OR GRAVEL. NO BOWEL OR URINARY TRACT OBSTRUCTION. MILD ASCITES, PREDOMINANTLY AT THE PELVIS THAT MAY RELATE TO PERITONEAL DIALYSIS. ANASARCA. NO EVIDENCE OF HEMATOMA. Impression dictated by: Tana Perry M.D.06/14/2022 2:13 PM Dictation Location: [place] [address] Transcribed By: [facility] 06/14/22 1413 Dictated By: Tana Perry MD 06/14/22 1358 Signed By: 06/14/22 1413 Normal [facility] Complete Blood Count Auto Di ffon 06-14-2022 Basophils (Bld) [#/Vol] 0.0 10*3/uL Normal 0.0-0.2 [facility] Comment on above: Result Comment: PERF ORMED BY: [address] [address] PATHOLOGIST INTERNAL MEDICINE PHYSICIAN SESAR VAUGHN M.D. Performed By: #### C RP #### [address] [address] [place] Basophils/100 WBC (Bld) 0.6 % Normal . [facility] Comment on above: Performed By: #### C RP #### [address] Eosinophils (Bld) [#/Vol] 0.1 10*3/uL Normal 0.0-0.45 [facility] Comment on above: Performed By: #### C RP #### [address] Eosinophils/100 WBC (Bld) 2.4 % Normal . [facility] Comment on above: Performed By: #### C RP #### [address] Erythrocyte distribution width (RBC) [Ratio] 16.5 % High 12.0-14.8 [facility] Comment on above: Performed By: #### C RP #### [address] Hematocrit (Bld) [Volume fraction] 21.5 % Low 38.8-50.0 [facility] Comment on above: Performed By: #### C RP #### [address] Hemoglobin (Bld) [Mass/Vol] 7.1 g/dL Low 13.0-17.0 [facility] Comment on above: Performed By: #### C RP #### [address] Lymphocytes (Bld) [#/Vol] 0.5 10*3/uL Low 1.00-4.8 [facility] Comment on above: Performed By: #### C RP #### [address] Lymphocytes/100 WBC (Bld) 7.5 % Normal . [facility] Comment on above: Performed By: #### C RP #### [address] MCH (RBC) [Entitic mass] 27.0 pg Low 27.5-35.2 [facility] Comment on above: Performed By: #### C RP #### [facility] [address] MCV (RBC) [Entitic vol] 81.5 fL Low 83.5-101 [facility] Comment on above: Performed By: #### C RP #### [facility] [address] Mean Corpuscular HGB Conc 33.1 g/dL Normal 32.5-35.6 [facility] Comment on above: Performed By: #### C RP #### [facility] [address] Monocytes (Bld) [#/Vol] 0.7 10*3/uL Normal 0.0-0.8 [facility] Comment on above: Performed By: #### C RP #### [facility] [address] [place] [address] [place] Monocytes/100 WBC (Bld) 10.6 % Normal . [facility] Comment on above: Performed By: #### C RP #### [facility] [address] [place] [address] [place] Neutrophils (Bld) [#/Vol] 4.8 10*3/uL Normal 1.8-7.7 [facility] Comment on above: Performed By: #### C RP #### [facility] [address] Neutrophils/100 WBC (Bld) 78.9 % Normal . [facility] Comment on above: Performed By: #### C RP #### [facility] [address] NRBC% 0.1 /100{WBC} Normal 0-0.5 [facility] Comment on above: Performed By: #### C RP #### [facility] [address] Platelet mean volume (Bld) [Entitic vol] 8.8 fL Normal 6.6-10.1 [facility] Comment on above: Performed By: #### C RP #### [facility] [address] Platelets (Bld) [#/Vol] 167 10*3/uL Normal 150-450 [facility] Comment on above: Performed By: #### C RP #### [facility] [address] RBC (Bld) [#/Vol] 2.63 10*6/uL Low 3.90-5.60 [facility] Comment on above: Performed By: #### C RP #### [facility] [address] WBC (Bld) [#/Vol] 6.1 10*3/uL Normal 4.1-10.5 [facility] Comment on above: Performed By: #### C RP #### [address] Fecal occult blood detection by immunochemistryOrdered By: Caleb Farrar on 06-14-2022 Hemoglobin.gastrointest inal Ql (Stl) [facility] Glucose Poct Glucometerson 0 06-14-2022 Glucose [Mass/Vol] 185 mg/dL Normal [facility] Comment on above: Result Comment: [facility] Glucose Reference Range is dependent on time and content of last meal. Glucose of more than 200 mg/dL in a nonstressed, ambulatory subject supports the diagnosis of Diabetes Mellitus. PERFORMED BY: [place] [address] PATHOLOGIST INTERNAL MEDICINE PHYSICIAN SESAR VAUGHN M.D. Performed By: #### G LULS #### Point of Care testing , Glucose [Mass/Vol] 180 mg/dL Normal [facility] Comment on above: Result Comment: [facility] Glucose Reference Range is dependent on time and content of last meal. Glucose of more than 200 mg/dL in a nonstressed, ambulatory subject supports the diagnosis of Diabetes Mellitus. PERFORMED BY: [place] [address] PATHOLOGIST INTERNAL MEDICINE PHYSICIAN SESAR VAUGHN M.D. Performed By: #### C RP #### [facility] [address] Glucose [Mass/Vol] 167 mg/dL Normal [facility] Comment on above: Result Comment: [place] Glucose Reference Range is dependent on time and content of last meal. Glucose of more than 200 mg/dL in a nonstressed, ambulatory subject supports the diagnosis of Diabetes Mellitus. PERFORMED BY: [place] [address] PATHOLOGIST INTERNAL MEDICINE PHYSICIAN SESAR VAUGHN M.D. Performed By: #### C RP #### [address] Commemt1 Glu2: Cleaned Meter Normal [facility] Comment on above: Result Comment: PERF ORMED BY: [place] [address] PATHOLOGIST INTERNAL MEDICINE PHYSICIAN SESAR VAUGHN M.D. Performed By: #### C RP #### [address] Glucose [Mass/Vol] 112 mg/dL Normal [facility] Comment on above: Result Comment: [facility] Glucose Reference Range is dependent on time and content of last meal. Glucose of more than 200 mg/dL in a nonstressed, ambulatory subject supports the diagnosis of Diabetes Mellitus. Performed By: #### C RP #### [place] [address] [place] Haptoglobinon 06-14-2022 Haptoglobin 332 mg/dL High 44-215 [facility] Comment on above: Result Comment: PERF ORMED BY: [place] [address] PATHOLOGIST INTERNAL MEDICINE PHYSICIAN SESAR VAUGHN M.D. Performed By: #### C RP #### [address] Haptoglobin [Mass/volume] in Serum or PlasmaOrdered By: Caleb Farrar on 06-14-2022 Haptoglobin [Mass/Vol] 332 mg/dL 44-215 [facility] LDH Lactate Dehydrogenaseon 06-14-2022 LDH Lactate Dehydrogenase 220 U/L Normal 140-271 [facility] Comment on above: Result Comment: PERF ORMED BY: [place] [address] PATHOLOGIST INTERNAL MEDICINE PHYSICIAN SESAR VAUGHN M.D. Performed By: #### C RP #### [address] Lactate dehydrogenase [Enzym atic activity/volume] in Serum or Plasma by Lactate to pyOrdered By: Caleb Farrar on 06-14-2022 LDH Lactate to pyruvate reaction [Catalytic activity/Vol] 220 U/L 140-271 [facility] No Panel InformationOrdered By: Caleb Farrar on 06-14-2022 Bedside Glucose Comment Glu2: cleaned meter [facility] Stool Occult Blood (Immuno)o n 06-14-2022 Stool Occult Blood (Immuno) Occult Blood (Immuno) Negative for Occult Blood by Immunochemical Methodology -------- Reference range = Negative PERFORMED BY: [place] [address] PATHOLOGIST INTERNAL MEDICINE PHYSICIAN SESAR VAUGHN M.D. Normal [facility] Comment on above: Performed By: #### C RP #### [address] Complete Blood Count Auto Di ffon 06-13-2022 Basophils (Bld) [#/Vol] 0.0 10*3/uL Normal 0.0-0.2 [facility] Comment on above: Result Comment: PERF ORMED BY: [place] [address] PATHOLOGIST INTERNAL MEDICINE PHYSICIAN SESAR VAUGHN M.D. Performed By: #### R ENAL, CBC #### [place] [address] [place] Basophils/100 WBC (Bld) 0.6 % Normal . [facility] Comment on above: Performed By: #### R ENAL, CBC #### [facility] [address] Eosinophils (Bld) [#/Vol] 0.1 10*3/uL Normal 0.0-0.45 [facility] Comment on above: Performed By: #### R ENAL, CBC #### [facility] [address] Eosinophils/100 WBC (Bld) 2.1 % Normal . [facility] Comment on above: Performed By: #### R ENAL, CBC #### [facility] [address] Erythrocyte distribution width (RBC) [Ratio] 16.9 % High 12.0-14.8 [facility] Comment on above: Performed By: #### R ENAL, CBC #### [address] Hematocrit (Bld) [Volume fraction] 20.6 % Low 38.8-50.0 [facility] Comment on above: Performed By: #### R ENAL, CBC #### [address] Hemoglobin (Bld) [Mass/Vol] 6.8 g/dL Low 13.0-17.0 [facility] Comment on above: Performed By: #### R ENAL, CBC #### [place] [address] [place] Lymphocytes (Bld) [#/Vol] 0.5 10*3/uL Low 1.00-4.8 [facility] Comment on above: Performed By: #### R ENAL, CBC #### [facility] [address] [place] [address] [place] Lymphocytes/100 WBC (Bld) 6.8 % Normal . [facility] Comment on above: Performed By: #### R ENAL, CBC #### [facility] [address] MCH (RBC) [Entitic mass] 27.1 pg Low 27.5-35.2 [facility] Comment on above: Performed By: #### R ENAL, CBC #### [facility] [address] MCV (RBC) [Entitic vol] 81.9 fL Low 83.5-101 [facility] Comment on above: Performed By: #### R ENAL, CBC #### [facility] [address] Mean Corpuscular HGB Conc 33.1 g/dL Normal 32.5-35.6 [facility] Comment on above: Performed By: #### R ENAL, CBC #### [facility] [address] Monocytes (Bld) [#/Vol] 0.7 10*3/uL Normal 0.0-0.8 [facility] Comment on above: Performed By: #### R ENAL, CBC #### [facility] [address] Monocytes/100 WBC (Bld) 10.4 % Normal . [facility] Comment on above: Performed By: #### R ENAL, CBC #### [facility] [address] Neutrophils (Bld) [#/Vol] 5.5 10*3/uL Normal 1.8-7.7 [facility] Comment on above: Performed By: #### R ENAL, CBC #### [facility] [address] [place] [address] [place] Neutrophils/100 WBC (Bld) 80.1 % Normal . [facility] Comment on above: Performed By: #### R ENAL, CBC #### [facility] [address] [place] [address] [place] NRBC% 0.1 /100{WBC} Normal 0-0.5 [facility] Comment on above: Performed By: #### R ENAL, CBC #### [facility] [address] Platelet mean volume (Bld) [Entitic vol] 8.9 fL Normal 6.6-10.1 [facility] Comment on above: Performed By: #### R LYNETTE, CBC #### [address] Platelets (Bld) [#/Vol] 173 10*3/uL Normal 150-450 [facility] Comment on above: Performed By: #### R LYNETTE, CBC #### [address] RBC (Bld) [#/Vol] 2.52 10*6/uL Low 3.90-5.60 [facility] Comment on above: Performed By: #### R LYNETTE, CBC #### [address] WBC (Bld) [#/Vol] 6.9 10*3/uL Normal 4.1-10.5 [facility] Comment on above: Performed By: #### R LYNETTE, CBC #### [address] Comprehensive Metabolic Pane stewart 06-13-2022 Albumin [Mass/Vol] 2.3 g/dL Low 3.5-5.7 [facility] Comment on above: Performed By: #### R LYNETTE, CBC #### [address] Albumin/Globulin [Mass ratio] 0.7 {ratio} Normal [facility] Comment on above: Performed By: #### R LYNETTE, CBC #### [address] ALP [Catalytic activity/Vol] 160 U/L High 34-104 [facility] Comment on above: Performed By: #### R LYNETTE, CBC #### [address] ALT [Catalytic activity/Vol] 12 U/L Normal 7-52 [facility] Comment on above: Performed By: #### R LYNETTE, CBC #### [address] Anion gap [Moles/Vol] 15.6 mmol/L High 6.0-15.0 [facility] Comment on above: Performed By: #### R ENJENIFFER, CBC #### [facility] [address] AST [Catalytic activity/Vol] 22 U/L Normal 13-39 [facility] Comment on above: Performed By: #### R ENAL, CBC #### [facility] [address] Bilirubin [Mass/Vol] 0.7 mg/dL Normal 0.3-1.0 [facility] Comment on above: Performed By: #### R ENAL, CBC #### [facility] [address] Calcium [Mass/Vol] 8.1 mg/dL Low 8.6-10.3 [facility] Comment on above: Performed By: #### R ENAL, CBC #### [facility] [address] Chloride [Moles/Vol] 107 mmol/L Normal 98-107 [facility] Comment on above: Performed By: #### R ENJENIFFER, CBC #### [facility] [address] CO2 [Moles/Vol] 18.5 mmol/L Low 21.0-31.0 [facility] Comment on above: Performed By: #### R ENAL, CBC #### [facility] [address] [place] [address] [place] Creatinine [Mass/Vol] 5.58 mg/dL High 0.70-1.30 [facility] Comment on above: Performed By: #### R ENAL, CBC #### [facility] [address] [place] [address] [place] Creatinine Clr Calc Pharmacy 17.93 Normal [facility] Comment on above: Performed By: #### R ENAL, CBC #### [facility] [address] [place] [address] [place] GFR/1.73 sq M.predicted MDRD (S/P/Bld) [Vol rate/Area] 11.155 mL/min/{1.73_m2} Normal [facility] Comment on above: Performed By: #### R ENAL, CBC #### [facility] [address] Globulin (S) [Mass/Vol] 3.5 g/dL Normal [facility] Comment on above: Performed By: #### R ENAL, CBC #### [facility] [address] Glucose [Mass/Vol] 97 mg/dL Normal 74-109 [facility] Comment on above: Result Comment: [facility] Glucose Reference Range is dependent on time and content of last meal. Glucose of more than 200 mg/dL in a nonstressed, ambulatory subject supports the diagnosis of Diabetes Mellitus. ADA recommended reference range Performed By: #### R ENAL, CBC #### [facility] [address] Potassium [Moles/Vol] 4.1 mmol/L Normal 3.5-5.1 [facility] Comment on above: Performed By: #### R ENAL, CBC #### [facility] [address] Protein [Mass/Vol] 5.8 g/dL Low 6.4-8.9 [facility] Comment on above: Performed By: #### R ENAL, CBC #### [facility] [address] Sodium [Moles/Vol] 137 mmol/L Normal 136-145 [facility] Comment on above: Performed By: #### R ENAL, CBC #### [facility] [address] [place] [address] [place] Urea nitrogen [Mass/Vol] 114 mg/dL High -25 [facility] Comment on above: Performed By: #### R ENAL, CBC #### [facility] [address] [place] [address] [place] Ferritinon 06-13-2022 Ferritin [Mass/Vol] 731.0 ng/mL High 23.9-336.2 [facility] Comment on above: Performed By: #### R LYNETTE, CBC #### [facility] [address] [place] [id number] [place] Ferritin [Mass/volume] in Se rum or PlasmaOrdered By: Cristobal Butts on 06-13-2022 Ferritin [Mass/Vol] 731.0 ng/mL 23.9-336.2 [facility] Folate [Mass/volume] in Seru m or PlasmaOrdered By: Cristobal Butts on 06-13-2022 Folate [Mass/Vol] 14.5 ng/mL >5.9 [facility] Comment on above: Folate reference ran ge: >5.9 ng/mlThe WHO technical consultation on folate and vitamin l99earzioefciym has determined that folate concentrations lessthan 4 ng/ml are considered deficient. Glucose Poct Glucometerson 0 06-13-2022 Commemt1 Glu2: Cleaned Meter Normal [facility] Comment on above: Result Comment: PERF ORMED BY: [facility] [address] [place] [address] PATHOLOGIST INTERNAL MEDICINE PHYSICIAN SESAR VAUGHN M.D. Performed By: #### C CASE, BMP #### [facility] [address] Glucose [Mass/Vol] 150 mg/dL Normal [facility] Comment on above: Result Comment: [place] Glucose Reference Range is dependent on time and content of last meal. Glucose of more than 200 mg/dL in a nonstressed, ambulatory subject supports the diagnosis of Diabetes Mellitus. Performed By: #### C CASE, BMP #### [facility] [address] [place] [id number] [facility] Glucose [Mass/Vol] 139 mg/dL Normal [facility] Comment on above: Result Comment: [place] Glucose Reference Range is dependent on time and content of last meal. Glucose of more than 200 mg/dL in a nonstressed, ambulatory subject supports the diagnosis of Diabetes Mellitus. PERFORMED BY: [facility] [address] [place] [address] PATHOLOGIST INTERNAL MEDICINE PHYSICIAN SESAR VAUGHN M.D. Performed By: #### R ENAL, CBC #### [facility] [address] [place] [address] Glucose [Mass/Vol] 198 mg/dL Normal [facility] Comment on above: Result Comment: [place] Glucose Reference Range is dependent on time and content of last meal. Glucose of more than 200 mg/dL in a nonstressed, ambulatory subject supports the diagnosis of Diabetes Mellitus. PERFORMED BY: [place] [address] PATHOLOGIST INTERNAL MEDICINE PHYSICIAN SESAR VAUGHN M.D. Performed By: #### G LULS ####Point of Care testing, Commemt1 Glu2: Cleaned Meter Normal [facility] Comment on above: Result Comment: PERF ORMED BY: [place] [address] PATHOLOGIST INTERNAL MEDICINE PHYSICIAN SESAR VAUGHN M.D. Performed By: #### G LULS #### Point of Care testing , Glucose [Mass/Vol] 112 mg/dL Normal [facility] Comment on above: Result Comment: [place] Glucose Reference Range is dependent on time and content of last meal. Glucose of more than 200 mg/dL in a nonstressed, ambulatory subject supports the diagnosis of Diabetes Mellitus. Performed By: #### G LULS #### Point of Care testing , Iron [Mass/volume] in Serum or PlasmaOrdered By: Cristobal Butts on 06-13-2022 Iron [Mass/Vol] 12 ug/dL 50-212 [facility] Iron and TIBC Profileon 05-21 % Iron Saturation 9.6 % Low 20-50 [facility] Comment on above: Performed By: #### R ENAL, CBC #### [facility] [address] [place] [address] Iron [Mass/Vol] 12 ug/dL Low 50-212 [facility] Comment on above: Performed By: #### R ENAL, CBC #### [facility] [address] [place] [address] Total Iron Binding Capacity 125 ug/dL Low 255-450 [facility] Comment on above: Performed By: #### R ENJENIFFER, CBC #### [facility] [address] Transferrin [Mass/Vol] 89 mg/dL Low 203-362 [facility] Comment on above: Performed By: #### R ENAL, CBC #### [facility] [address] Iron binding capacity [Mass/ volume] in Serum or PlasmaOrdered By: Cristobal Butts on 06-13-2022 Iron binding capacity [Mass/Vol] 125 ug/dL 255-450 [facility] Iron saturation [Mass Fracti on] in Serum or PlasmaOrdered By: Cristobal Butts on 06-13-2022 Iron saturation [Mass fraction] 9.6 % 20-50 [facility] Transferrin [Mass/volume] in Serum or PlasmaOrdered By: Cristobal Butts on 06-13-2022 Transferrin [Mass/Vol] 89 mg/dL 203-362 [facility] Vancomycin [Mass/volume] in Serum or PlasmaOrdered By: Livia Lu on 06-13-2022 Vancomycin [Mass/Vol] 9.9 ug/mL 5.0-20.0 [facility] Comment on above: Last dose: - Vancomycin,Randomon 06-14-19 23 Vancomycin,Random 9.9 ug/mL Normal 5.0-20.0 [facility] Comment on above: Order Comment: Date of last dose?: [id number] Time of last dose?: 1999 Result Comment: Last dose: - PERFORMED BY: [facility] [address] [place] [address] PATHOLOGIST INTERNAL MEDICINE PHYSICIAN SESAR VAUGHN M.D. Performed By: #### V ANCR ####[facility] [id number] Vit. B12/Folate Profileon Cobalamin (Vitamin B12) [Mass/Vol] 353 pg/mL Normal 180-914 [facility] Comment on above: Performed By: #### R ENJENIFFER, CBC #### [facility] [address] Folate 14.5 ng/mL Normal >5.9 [facility] Comment on above: Result Comment: Trinh te reference range: >5.9 ng/ml The WHO technical consultation on folate and vitamin b12 deficiencies has determined that folate concentrations less than 4 ng/ml are considered deficient. PERFORMED BY: [place] [address] PATHOLOGIST INTERNAL MEDICINE PHYSICIAN SESAR VAUGHN M.D. Performed By: #### R ENAL, CBC #### [facility] [address] [place] [address] Vitamin B12 ser/plasOrdered By: Cristobal Butts on 06-13-2022 Cobalamin (Vitamin B12) [Mass/Vol] 353 pg/mL 180-914 [facility] C-Reactive Proteinon 023 C-Reactive Protein 13.3 mg/dL High 0.0-0.5 [facility] Comment on above: Order Comment: LINE Result Comment: PERF ORMED BY: [facility] [address] [place] [address] PATHOLOGIST INTERNAL MEDICINE PHYSICIAN SESAR VAUGHN M.D. Performed By: #### G LULS #### Point of Care testing , Complete Blood Count Auto Di ffon 06-12-2022 Basophils (Bld) [#/Vol] 0.1 10*3/uL Normal 0.0-0.2 [facility] Comment on above: Order Comment: LINE Performed By: #### C MP, ESR, MG, CBC ####[facility] [id number] Basophils/100 WBC (Bld) 0.9 % Normal . [facility] Comment on above: Order Comment: LINE Performed By: #### C MP, ESR, MG, CBC ####[facility] [id number] Eosinophils (Bld) [#/Vol] 0.2 10*3/uL Normal 0.0-0.45 [facility] Comment on above: Order Comment: LINE Performed By: #### C MP, ESR, MG, CBC ####[address] Eosinophils/100 WBC (Bld) 1.8 % Normal . [facility] Comment on above: Order Comment: LINE Performed By: #### C MP, ESR, MG, CBC ####[address] Erythrocyte distribution width (RBC) [Ratio] 16.6 % High 12.0-14.8 [facility] Comment on above: Order Comment: LINE Performed By: #### C MP, ESR, MG, CBC ####[address] Hematocrit (Bld) [Volume fraction] 22.5 % Low 38.8-50.0 [facility] Comment on above: Order Comment: LINE Performed By: #### C MP, ESR, MG, CBC ####[address] Hemoglobin (Bld) [Mass/Vol] 7.6 g/dL Low 13.0-17.0 [facility] Comment on above: Order Comment: LINE Performed By: #### C MP, ESR, MG, CBC ####[address] Lymphocytes (Bld) [#/Vol] 0.4 10*3/uL Low 1.00-4.8 [facility] Comment on above: Order Comment: LINE Performed By: #### C MP, ESR, MG, CBC ####[address] Lymphocytes/100 WBC (Bld) 4.3 % Normal . [facility] Comment on above: Order Comment: LINE Performed By: #### C MP, ESR, MG, CBC ####[address] MCH (RBC) [Entitic mass] 27.2 pg Low 27.5-35.2 [facility] Comment on above: Order Comment: LINE Performed By: #### C MP, ESR, MG, CBC ####[address] [place] [address] [place] MCV (RBC) [Entitic vol] 80.9 fL Low 83.5-101 [facility] Comment on above: Order Comment: LINE Performed By: #### C MP, ESR, MG, CBC ####[address] Mean Corpuscular HGB Conc 33.7 g/dL Normal 32.5-35.6 [facility] Comment on above: Order Comment: LINE Performed By: #### C MP, ESR, MG, CBC ####[address] Monocytes (Bld) [#/Vol] 0.7 10*3/uL Normal 0.0-0.8 [facility] Comment on above: Order Comment: LINE Performed By: #### C MP, ESR, MG, CBC ####[address] Monocytes/100 WBC (Bld) 8.4 % Normal . [facility] Comment on above: Order Comment: LINE Performed By: #### C MP, ESR, MG, CBC ####[address] Neutrophils (Bld) [#/Vol] 7.5 10*3/uL Normal 1.8-7.7 [facility] Comment on above: Order Comment: LINE Performed By: #### C MP, ESR, MG, CBC ####[address] Neutrophils/100 WBC (Bld) 84.6 % Normal . [facility] Comment on above: Order Comment: LINE Performed By: #### C MP, ESR, MG, CBC ####[address] NRBC% 0.0 /100{WBC} Normal 0-0.5 [facility] Comment on above: Order Comment: LINE Performed By: #### C MP, ESR, MG, CBC ####[address] Platelet mean volume (Bld) [Entitic vol] 9.0 fL Normal 6.6-10.1 [facility] Comment on above: Order Comment: LINE Performed By: #### C MP, ESR, MG, CBC ####[address] Platelets (Bld) [#/Vol] 190 10*3/uL Signific ant change down 150-450 [facility] Comment on above: Order Comment: LINE Performed By: #### C MP, ESR, MG, CBC ####[address] RBC (Bld) [#/Vol] 2.78 10*6/uL Low 3.90-5.60 [facility] Comment on above: Order Comment: LINE Performed By: #### C MP, ESR, MG, CBC ####[address] WBC (Bld) [#/Vol] 8.9 10*3/uL Normal 4.1-10.5 [facility] Comment on above: Order Comment: LINE Performed By: #### C MP, ESR, MG, CBC ####[address] Comprehensive Metabolic Pane stewart 06-12-2022 Albumin [Mass/Vol] 2.5 g/dL Low 3.5-5.7 [facility] Comment on above: Order Comment: LINE Performed By: #### C MP, ESR, MG, CBC ####[address] Albumin/Globulin [Mass ratio] 0.7 {ratio} Normal [facility] Comment on above: Order Comment: LINE Performed By: #### C MP, ESR, MG, CBC ####[address] ALP [Catalytic activity/Vol] 173 U/L High 34-104 [facility] Comment on above: Order Comment: LINE Performed By: #### C MP, ESR, MG, CBC ####[place] [id number] [facility] ALT [Catalytic activity/Vol] 13 U/L Normal 7-52 [facility] Comment on above: Order Comment: LINE Performed By: #### C MP, ESR, MG, CBC ####[place] [id number] [facility] Anion gap [Moles/Vol] 16.6 mmol/L High 6.0-15.0 [facility] Comment on above: Order Comment: LINE Performed By: #### C MP, ESR, MG, CBC ####[place] [id number] [facility] AST [Catalytic activity/Vol] 24 U/L Normal 13-39 [facility] Comment on above: Order Comment: LINE Performed By: #### C MP, ESR, MG, CBC ####[place] [id number] [facility] Bilirubin [Mass/Vol] 0.8 mg/dL Normal 0.3-1.0 [facility] Comment on above: Order Comment: LINE Performed By: #### C MP, ESR, MG, CBC ####[place] [id number] [facility] Calcium [Mass/Vol] 8.0 mg/dL Low 8.6-10.3 [facility] Comment on above: Order Comment: LINE Performed By: #### C MP, ESR, MG, CBC ####[place] [id number] [facility] Chloride [Moles/Vol] 105 mmol/L Normal 98-107 [facility] Comment on above: Order Comment: LINE Performed By: #### C MP, ESR, MG, CBC ####[place] [id number] [facility] CO2 [Moles/Vol] 17.7 mmol/L Low 21.0-31.0 [facility] Comment on above: Order Comment: LINE Performed By: #### C MP, ESR, MG, CBC ####[place] [id number] [facility] Creatinine [Mass/Vol] 5.14 mg/dL High 0.70-1.30 [facility] Comment on above: Order Comment: LINE Performed By: #### C MP, ESR, MG, CBC ####[place] [address] [place] [id number] [facility] Creatinine Clr Calc Pharmacy 19.47 [facility] Comment on above: Order Comment: LINE Performed By: #### C MP, ESR, MG, CBC ####[place] [address] [place] [id number] [facility] GFR/1.73 sq M.predicted MDRD (S/P/Bld) [Vol rate/Area] 12.311 mL/min/{1.73_m2} Normal [facility] Comment on above: Order Comment: LINE Performed By: #### C MP, ESR, MG, CBC ####[place] [id number] [facility] Globulin (S) [Mass/Vol] 3.8 g/dL Normal [facility] Comment on above: Order Comment: LINE Performed By: #### C MP, ESR, MG, CBC ####[place] [id number] [facility] Glucose [Mass/Vol] 97 mg/dL Normal 74-109 [facility] Comment on above: Order Comment: LINE Result Comment: [facility] Glucose Reference Range is dependent on time and content of last meal. Glucose of more than 200 mg/dL in a nonstressed, ambulatory subject supports the diagnosis of Diabetes Mellitus. ADA recommended reference range Performed By: #### C MP, ESR, MG, CBC ####[place] [id number] [facility] Potassium [Moles/Vol] 4.3 mmol/L Normal 3.5-5.1 [facility] Comment on above: Order Comment: LINE Performed By: #### C MP, ESR, MG, CBC ####[place] [id number] [facility] Protein [Mass/Vol] 6.3 g/dL Low 6.4-8.9 [facility] Comment on above: Order Comment: LINE Performed By: #### C MP, ESR, MG, CBC ####[place] [address] [place] [address] [facility] Sodium [Moles/Vol] 135 mmol/L Low 136-145 [facility] Comment on above: Order Comment: LINE Performed By: #### C MP, ESR, MG, CBC ####[facility] [place] [address] [facility] Urea nitrogen [Mass/Vol] 111 mg/dL High 7-25 [facility] Comment on above: Order Comment: LINE Performed By: #### C MP, ESR, MG, CBC ####[place] [address] [place] [address] [facility] Erythrocyte Sedimentation Ra cindy 06-12-2022 ESR (Bld) [Velocity] 81 mm/h High 0- [facility] Comment on above: Order Comment: LINE Result Comment: PERF ORMED BY: [facility] [address] [place] [address] PATHOLOGIST INTERNAL MEDICINE PHYSICIAN SESAR VAUGHN M.D. Performed By: #### C MP, ESR, MG, CBC ####[place] [address] [place] [address] [facility] Erythrocyte sedimentation ra te by Photometric methodOrdered By: Caleb Farrar on 06-12-2022 ESR Photometric method (Bld) [Velocity] 81 mm/hr 0 [facility] Glucose Poct Glucometerson 0 06-12-2022 Commemt1 Glu2: Cleaned Meter Normal [facility] Comment on above: Result Comment: PERF ORMED BY: [facility] [address] [place] [address] PATHOLOGIST INTERNAL MEDICINE PHYSICIAN SESAR VAUGHN M.D. Performed By: #### G LULS ####Point of Care testing, Glucose [Mass/Vol] 163 mg/dL Normal [facility] Comment on above: Result Comment: [place] Glucose Reference Range is dependent on time and content of last meal. Glucose of more than 200 mg/dL in a nonstressed, ambulatory subject supports the diagnosis of Diabetes Mellitus. Performed By: #### G LULS ####Point of Care testing, Glucose [Mass/Vol] 142 mg/dL Normal [facility] Comment on above: Result Comment: [place] om Glucose Reference Range is dependent on time and content of last meal. Glucose of more than 200 mg/dL in a nonstressed, ambulatory subject supports the diagnosis of Diabetes Mellitus. PERFORMED BY: [place] [address] PATHOLOGIST INTERNAL MEDICINE PHYSICIAN SESAR VAUGHN M.D. Performed By: #### R ENAL, CBC #### [address] Glucose [Mass/Vol] 183 mg/dL Normal [facility] Comment on above: Result Comment: [place] om Glucose Reference Range is dependent on time and content of last meal. Glucose of more than 200 mg/dL in a nonstressed, ambulatory subject supports the diagnosis of Diabetes Mellitus. PERFORMED BY: [place] [phone] PATHOLOGIST INTERNAL MEDICINE PHYSICIAN SESAR VAUGHN M.D. Performed By: #### R ENAL, CBC #### [address] Glucose [Mass/Vol] 118 mg/dL Normal [facility] Comment on above: Result Comment: [place] om Glucose Reference Range is dependent on time and content of last meal. Glucose of more than 200 mg/dL in a nonstressed, ambulatory subject supports the diagnosis of Diabetes Mellitus. PERFORMED BY: [place] [address] PATHOLOGIST INTERNAL MEDICINE PHYSICIAN SESAR VAUGHN M.D. Performed By: #### G LULS #### Point of Care testing , Commemt1 Glu2: Cleaned Meter Normal [facility] Comment on above: Result Comment: PERF ORMED BY: [place] [address] PATHOLOGIST INTERNAL MEDICINE PHYSICIAN SESAR VAUGHN M.D. Performed By: #### R ENAL, CBC #### [address] [place] [address] [facility] Glucose [Mass/Vol] 218 mg/dL Normal [facility] Comment on above: Result Comment: [place] Glucose Reference Range is dependent on time and content of last meal. Glucose of more than 200 mg/dL in a nonstressed, ambulatory subject supports the diagnosis of Diabetes Mellitus. Performed By: #### R ENAL, CBC #### [facility] [address] [place] [id number] [facility] Magnesiumon 06-12-2022 Magnesium [Mass/Vol] 2.0 mg/dL Normal 1.9-2.7 [facility] Comment on above: Order Comment: LINE Result Comment: PERF ORMED BY: [facility] [address] [place] [address] PATHOLOGIST INTERNAL MEDICINE PHYSICIAN SESAR VAUGHN M.D. Performed By: #### C MP, ESR, MG, CBC ####[facility] [address] [place] [id number] [facility] Magnesium [Mass/volume] in S yulissa or PlasmaOrdered By: Caleb Farrar on 06-12-2022 Magnesium [Mass/Vol] 2.0 mg/dL 1.9-2.7 [facility] Alanine aminotransferase [En zymatic activity/volume] in Serum or PlasmaOrdered By: Livia Lu on 06-11-2022 ALT [Catalytic activity/Vol] 18 U/L 7-52 [facility] Albumin [Mass/volume] in Ser um or Plasma by Bromocresol green (BCG) dye binding methoOrdered By: Livia Lu on 06-11-2022 Albumin BCG dye [Mass/Vol] 2.8 g/dL 3.5-5.7 [facility] Alkaline phosphatase [Enzyma tic activity/volume] in Serum or PlasmaOrdered By: Livia Lu on 06-11-2022 ALP [Catalytic activity/Vol] 200 U/L 34-104 [facility] Aspartate aminotransferase [ Enzymatic activity/volume] in Serum or PlasmaOrdered By: Livia Lu on 06-11-2022 AST [Catalytic activity/Vol] 31 U/L 13-39 [facility] Automated erythrocytes count in urine sediment (number/area)Ordered By: Livia Lu on 06-11-2022 RBC Auto (Urine sed) [#/Area] 3-4 [HPF] 0-4 [facility] Automated leukocytes count i n urine sediment (number/area)Ordered By: Livia Elliotsushila on 06-11-2022 WBC Auto (Urine sed) [#/Area] 3-4 [HPF] 0-4 [facility] Bacterial blood cultureOrder ed By: Livia Lu on 06-11-2022 Bacteria identified Cx Nom (Bld) NO GROWTH 5 DAYS [facility] Basophils Auto (Bld) [#/Vol] Ordered By: Livia Lu on 06-11-2022 Basophils (Bld) [#/Vol] 0.0 10*3/uL 0.0-0.2 [facility] Basophils/100 WBC Auto (Bld) Ordered By: Livia Lu on 06-11-2022 Basophils/100 WBC (Bld) 0.5 % . [facility] Bilirubin Test strip Ql (U)O rdered By: Livia Lu on 06-11-2022 Bilirubin Ql (U) Negative Negative [facility] Bilirubin.total [Mass/volume ] in Serum or PlasmaOrdered By: Livia Lu on 06-11-2022 Bilirubin [Mass/Vol] 0.6 mg/dL 0.3-1.0 [facility] Blood Cultureon 06-11-2022 Bacteria identified Cx Nom (Bld) NO GROWTH 5 DAYS PERFORMED BY: [place] [address] PATHOLOGIST INTERNAL MEDICINE PHYSICIAN SESAR VAUGHN M.D. Normal [facility] Comment on above: Performed By: #### C BCNO, BMP #### [address] COVID CepheidOrdered By: Sandra Lu on 06-11-2022 SARS-CoV-2 (COVID-19) Ab [place] Ql Negative Negative [facility] Comment on above: This is a duplicate Cepheid Xpert Xpress CoV-2/Flu/RSV Plus RNA by RT-PCR result to be used for statistical tracking purpose only. SARS-CoV-2 (COVID-19) RNA HUMBLE+probe Ql (Unsp spec) [facility] COVID-19 / Flu A/B / RSV PCR on 06-11-2022 SARS-CoV-2 (COVID-19) RNA HUMBLE+probe Ql (Unsp spec) COVID-19 Cepheid Result Negative for SARS-CoV-2 RNA by RT-PCR Flu A Cepheid Result Negative for Flu A RNA by RT-PCR Flu B Cepheid Result Negative for Flu B RNA by RT-PCR RSV Cepheid Result Negative for RSV RNA by RT-PCR COVID19 Blank Space -------- Reference: Negative COVID19 Blank Space -------- Cepheid Disclaimer The Cepheid Xpert Xpress CoV-2/Flu/RSV Plus has Cepheid Disclaimer not been FDA cleared or approved; this test has Cepheid Disclaimer been authorized by FDA under an EUA for use by Cepheid Disclaimer authorized laboratories; this test has been Cepheid Disclaimer authorized only for the simultaneous qualitative Cepheid Disclaimer detection and differentiation of nucleic acids from Cepheid Disclaimer SARS-CoV-2, influenza A, influenza B, and Cepheid Disclaimer respiratory syncytial virus (RSV), and not for any Cepheid Disclaimer other viruses or pathogens; and this test is only Cepheid Disclaimer authorized for the duration of the declaration that Cepheid Disclaimer circumstances exist justifying the authorization of Cepheid Disclaimer emergency use of in vitro diagnostic tests for Cepheid Disclaimer detection and/or diagnosis of COVID-19 under Cepheid Disclaimer Section 564(b)(1) of the Act, 21 U.S.C. 360bbb- Cepheid Disclaimer 3(b)(1), unless the authorization is terminated or Cepheid Disclaimer revoked sooner. PERFORMED BY: [place] [address] PATHOLOGIST INTERNAL MEDICINE PHYSICIAN SESAR VAUGHN M.D. Normal [facility] Comment on above: Performed By: #### R ENAL, CBC #### [facility] [address] [place] [id number] [facility] Calcium [Mass/volume] in Ser um or PlasmaOrdered By: Livia Lu on 06-11-2022 Calcium [Mass/Vol] 8.4 mg/dL 8.6-10.3 [facility] Carbon dioxide, total [Moles /volume] in Serum or PlasmaOrdered By: Livia Lu on 06-11-2022 CO2 [Moles/Vol] 18.3 mmol/L 21.0-31.0 [facility] Cepheid COVID PCR Negativeon 06-11-2022 SARS-CoV-2 (COVID-19) RNA HUMBLE+probe Ql (Unsp spec) Negative Normal Negative [facility] Comment on above: Result Comment: This is a duplicate CepQwiqqid Xpert Xpress CoV-2/Flu/RSV Plus RNA by RT-PCR result to be used for statistical tracking purpose only. PERFORMED BY: [place] [address] PATHOLOGIST INTERNAL MEDICINE PHYSICIAN SESAR VAUGHN M.D. Performed By: #### R ENAL, CBC #### [facility] [address] [place], [place] [id number] [place] Chloride [Moles/volume] in S yulissa or PlasmaOrdered By: Livia Lu on 06-11-2022 Chloride [Moles/Vol] 106 mmol/L 98-107 [facility] Color Auto (U)Ordered By: Courtney Lu on 06-11-2022 Color (U) Yellow Yellow [facility] Complete Blood Count Auto Di ffon 06-11-2022 Basophils (Bld) [#/Vol] 0.0 10*3/uL Normal 0.0-0.2 [facility] Comment on above: Result Comment: PERF ORMED BY: [address] [place] [address] PATHOLOGIST INTERNAL MEDICINE PHYSICIAN SESAR VAUGHN M.D. Performed By: #### G HOLGERLS #### Point of Care testing , Basophils/100 WBC (Bld) 0.5 % Normal . [facility] Comment on above: Performed By: #### G LULS #### Point of Care testing , Eosinophils (Bld) [#/Vol] 0.2 10*3/uL Normal 0.0-0.45 [facility] Comment on above: Performed By: #### G LULS #### Point of Care testing , Eosinophils/100 WBC (Bld) 2.0 % Normal . [facility] Comment on above: Performed By: #### G LULS #### Point of Care testing , Erythrocyte distribution width (RBC) [Ratio] 16.4 % High 12.0-14.8 [facility] Comment on above: Performed By: #### G LULS #### Point of Care testing , Hematocrit (Bld) [Volume fraction] 23.3 % Low 38.8-50.0 [facility] Comment on above: Performed By: #### G LULS #### Point of Care testing , Hemoglobin (Bld) [Mass/Vol] 7.7 g/dL Low 13.0-17.0 [facility] Comment on above: Performed By: #### G LULS #### Point of Care testing , Lymphocytes (Bld) [#/Vol] 0.3 10*3/uL Low 1.00-4.8 [facility] Comment on above: Performed By: #### G LULS #### Point of Care testing , Lymphocytes/100 WBC (Bld) 3.2 % Normal . [facility] Comment on above: Performed By: #### G LULS #### Point of Care testing , MCH (RBC) [Entitic mass] 27.1 pg Low 27.5-35.2 [facility] Comment on above: Performed By: #### G LULS #### Point of Care testing , MCV (RBC) [Entitic vol] 81.5 fL Low 83.5-101 [facility] Comment on above: Performed By: #### G BERT #### Point of Care testing , Mean Corpuscular HGB Conc 33.2 g/dL Normal 32.5-35.6 [facility] Comment on above: Performed By: #### G HOLGERLS #### Point of Care testing , Monocytes (Bld) [#/Vol] 0.7 10*3/uL Normal 0.0-0.8 [facility] Comment on above: Performed By: #### G LULS #### Point of Care testing , Monocytes/100 WBC (Bld) 17.28 % Normal 0.00-20.00 [facility] Comment on above: Performed By: #### G HOLGERLS #### Point of Care testing , Monocytes/100 WBC (Bld) 7.2 % Normal . [facility] Comment on above: Performed By: #### G BETR #### Point of Care testing , Neutrophils (Bld) [#/Vol] 8.9 10*3/uL High 1.8-7.7 [facility] Comment on above: Performed By: #### G BERT #### Point of Care testing , Neutrophils/100 WBC (Bld) 87.1 % Normal . [facility] Comment on above: Performed By: #### G HOLGERLS #### Point of Care testing , NRBC% 0.0 /100{WBC} Normal 0-0.5 [facility] Comment on above: Performed By: #### G HOLGERLS #### Point of Care testing , Platelet mean volume (Bld) [Entitic vol] 8.8 fL Normal 6.6-10.1 [facility] Comment on above: Performed By: #### G BERT #### Point of Care testing , Platelets (Bld) [#/Vol] 244 10*3/uL Normal 150-450 [facility] Comment on above: Performed By: #### G HOLGERLS #### Point of Care testing , RBC (Bld) [#/Vol] 2.86 10*6/uL Low 3.90-5.60 [facility] Comment on above: Performed By: #### G LUEVANGELISTA #### Point of Care testing , WBC (Bld) [#/Vol] 10.2 10*3/uL Normal 4.1-10.5 [facility] Comment on above: Performed By: #### G BERT #### Point of Care testing , Comprehensive Metabolic Pane stewart 06-11-2022 Albumin [Mass/Vol] 2.8 g/dL Low 3.5-5.7 [facility] Comment on above: Performed By: #### C RP #### [address] Albumin/Globulin [Mass ratio] 0.7 {ratio} Normal [facility] Comment on above: Performed By: #### C RP #### [address] ALP [Catalytic activity/Vol] 200 U/L High 34-104 [facility] Comment on above: Performed By: #### C RP #### [address] ALT [Catalytic activity/Vol] 18 U/L Normal 7-52 [facility] Comment on above: Performed By: #### C RP #### [address] Anion gap [Moles/Vol] 17.1 mmol/L High 6.0-15.0 [facility] Comment on above: Performed By: #### C RP #### [address] AST [Catalytic activity/Vol] 31 U/L Normal 13-39 [facility] Comment on above: Performed By: #### C RP #### [address] Bilirubin [Mass/Vol] 0.6 mg/dL Normal 0.3-1.0 [facility] Comment on above: Performed By: #### C RP #### [address] Calcium [Mass/Vol] 8.4 mg/dL Low 8.6-10.3 [facility] Comment on above: Performed By: #### C RP #### [facility] [address] Chloride [Moles/Vol] 106 mmol/L Normal 98-107 [facility] Comment on above: Performed By: #### C RP #### [facility] [address] CO2 [Moles/Vol] 18.3 mmol/L Low 21.0-31.0 [facility] Comment on above: Performed By: #### C RP #### [facility] [address] Creatinine [Mass/Vol] 5.45 mg/dL High 0.70-1.30 [facility] Comment on above: Performed By: #### C RP #### [facility] [address] Creatinine Clr Calc Pharmacy 18.36 Normal [facility] Comment on above: Result Comment: PERF ORMED BY: [place] [address] PATHOLOGIST INTERNAL MEDICINE PHYSICIAN SESAR VAUGHN M.D. Performed By: #### C RP #### [address] GFR/1.73 sq M.predicted MDRD (S/P/Bld) [Vol rate/Area] 11.475 mL/min/{1.73_m2} Normal [facility] Comment on above: Performed By: #### C RP #### [facility] [address] Globulin (S) [Mass/Vol] 4.1 g/dL Normal [facility] Comment on above: Performed By: #### C RP #### [facility] [address] Glucose [Mass/Vol] 62 mg/dL Low 74-109 [facility] Comment on above: Result Comment: [place] Glucose Reference Range is dependent on time and content of last meal. Glucose of more than 200 mg/dL in a nonstressed, ambulatory subject supports the diagnosis of Diabetes Mellitus. ADA recommended reference range Performed By: #### C RP #### [facility] [address] [place] [address] [place] Potassium [Moles/Vol] 4.4 mmol/L Normal 3.5-5.1 [facility] Comment on above: Performed By: #### C RP #### [facility] [address] [place] [address] [place] Protein [Mass/Vol] 6.9 g/dL Normal 6.4-8.9 [facility] Comment on above: Performed By: #### C RP #### [facility] [address] [place] [address] [place] Sodium [Moles/Vol] 137 mmol/L Normal 136-145 [facility] Comment on above: Performed By: #### C RP #### [facility] [address] [place] [address] [place] Urea nitrogen [Mass/Vol] 111 mg/dL High 7-25 [facility] Comment on above: Performed By: #### C RP #### [facility] [address] [place] [address] [place] Creatinine [Mass/volume] in Serum or PlasmaOrdered By: Livia Lu on 06-11-2022 Creatinine [Mass/Vol] 5.45 mg/dL 0.70-1.30 [facility] Dipstick and Microscopicon 0 06-11-2022 Appearance (U) Clear Normal Clear [facility] Comment on above: Order Comment: Name Collection Type:: Clean-Voided Midstream Performed By: #### R ENAL, CBC #### [facility] [address] [place] [address] [place] Bacteria,Urine None Seen Normal None Seen [facility] Comment on above: Order Comment: Name Collection Type:: Clean-Voided Midstream Performed By: #### R ENAL, CBC #### [facility] [address] [place] [id number] [place] Bilirubin,Urine Negative Normal Negative [facility] Comment on above: Order Comment: Name Collection Type:: Clean-Voided Midstream Performed By: #### R ENAL, CBC #### [facility] [address] [place] [address] [place] Color (U) Yellow Normal Yellow [facility] Comment on above: Order Comment: Name Collection Type:: Clean-Voided Midstream Performed By: #### R ENAL, CBC #### [facility] [address] [place] [address] [place] Glucose Ql (U) Normal Normal Normal [facility] Comment on above: Order Comment: Name Collection Type:: Clean-Voided Midstream Performed By: #### R ENAL, CBC #### [facility] [address] [place] [address] [place] Hyaline Casts,Urine 0-8 Normal 0-8 [facility] Comment on above: Order Comment: Name Collection Type:: Clean-Voided Midstream Result Comment: PERF ORMED BY: [place] [address] PATHOLOGIST INTERNAL MEDICINE PHYSICIAN SESAR VAUGHN M.D. Performed By: #### R ENAL, CBC #### [place] [address] [place] Ketones Ql (U) Negative Normal Negative [facility] Comment on above: Order Comment: Name Collection Type:: Clean-Voided Midstream Performed By: #### R ENAL, CBC #### [facility] [address] [place] [address] [place] Leukocyte esterase Test strip Ql (U) Negative Normal Negative [facility] Comment on above: Order Comment: Name Collection Type:: Clean-Voided Midstream Performed By: #### R ENAL, CBC #### [facility] [address] [place] [address] [place] Nitrite,Urine Negative Normal Negative [facility] Comment on above: Order Comment: Name Collection Type:: Clean-Voided Midstream Performed By: #### R ENAL, CBC #### [facility] [address] [place] [address] [place] Occult Blood,Urine Negative Normal Negative [facility] Comment on above: Order Comment: Name Collection Type:: Clean-Voided Midstream Result Comment: PERF ORMED BY: [place] [address] PATHOLOGIST INTERNAL MEDICINE PHYSICIAN SESAR VAUGHN M.D. Performed By: #### R ENAL, CBC #### [address] pH (U) 5.5 [pH] Normal 5.0-9.0 [facility] Comment on above: Order Comment: Name Collection Type:: Clean-Voided Midstream Performed By: #### R ENAL, CBC #### [address] Protein (U) [Mass/Vol] 300 mg/dL High Negative [facility] Comment on above: Order Comment: Name Collection Type:: Clean-Voided Midstream Performed By: #### R ENAL, CBC #### [address] RBC,Urine 3-4 Normal 0-4 [facility] Comment on above: Order Comment: Name Collection Type:: Clean-Voided Midstream Performed By: #### R ENAL, CBC #### [address] Specificy [place],Urine 1.014 Normal 1.001-1.030 [facility] Comment on above: Order Comment: Name Collection Type:: Clean-Voided Midstream Performed By: #### R ENAL, CBC #### [address] Squamous Epithelial Cell,Urine 1-2 Normal 0-2 [facility] Comment on above: Order Comment: Name Collection Type:: Clean-Voided Midstream Performed By: #### R ENAL, CBC #### [address] Urobilinogen,Urine Normal Normal Normal [facility] Comment on above: Order Comment: Name Collection Type:: Clean-Voided Midstream Performed By: #### R ENAL, CBC #### [place] [address] [place] WBC,Urine 3-4 Normal 0-4 [facility] Comment on above: Order Comment: Name Collection Type:: Clean-Voided Midstream Performed By: #### R ENAL, CBC #### [facility] [address] Eosinophils Auto (Bld) [#/Vo l]Ordered By: Livia Lu on 06-11-2022 Eosinophils (Bld) [#/Vol] 0.2 10*3/uL 0.0-0.45 [facility] Eosinophils/100 WBC Auto (Bl d)Ordered By: [facility] Eosinophils/100 WBC (Bld) 2.0 % . [facility] Erythrocyte distribution wid th Auto (RBC) [Ratio]Ordered By: [facility]ivia [facility] 06-11[facility]2022 Erythrocyte distribution width (RBC) [Ratio] 16.4 % 12.0-14.8 [facility] Globulin Calc (S) [Mass/Vol] Ordered By: Livia Lu on 06-11-2022 Globulin (S) [Mass/Vol] 4.1 g/dL [facility] Glucose Glucometer (BldC) [M ass/Vol]Ordered By: Livia Lu on 06-11-2022 Glucose [Mass/Vol] 83 mg/dL [facility] Comment on above: Random Glucose Refer ence Range is dependent on time and content of last meal. Glucose of more than 200 mg/dL in a nonstressed, ambulatory subject supports the diagnosis of Diabetes Mellitus. Glucose Poct Glucometerson 0 06-11-2022 Commemt1 Glu2: Cleaned Meter Normal [facility] Comment on above: Result Comment: PERF ORMED BY: [facility] [address] [place] [address] PATHOLOGIST INTERNAL MEDICINE PHYSICIAN SESAR VAUGHN M.D. Performed By: #### R ENAL, CBC #### [facility] [address] Glucose [Mass/Vol] 83 mg/dL Normal [facility] Comment on above: Result Comment: [place] Glucose Reference Range is dependent on time and content of last meal. Glucose of more than 200 mg/dL in a nonstressed, ambulatory subject supports the diagnosis of Diabetes Mellitus. Performed By: #### R ENAL, CBC #### [facility] [address] Glucose [Mass/volume] in Ser um or PlasmaOrdered By: Livia Lu on 06-11-2022 Glucose [Mass/Vol] 62 mg/dL 74-109 [facility] Comment on above: ADA recommended refe rence rangeRandom Glucose Reference Range is dependent on time and content of last meal. Glucose of more than 200 mg/dL in a nonstressed, ambulatory subject supports the diagnosis of Diabetes Mellitus. Hematocrit Auto (Bld) [Volum e fraction]Ordered By: Livia Lu on 06-11-2022 Hematocrit (Bld) [Volume fraction] 23.3 % 38.8-50.0 [facility] Hemoglobin [Mass/volume] in BloodOrdered By: Livia Lu on 06-11-2022 Hemoglobin (Bld) [Mass/Vol] 7.7 g/dL 13.0-17.0 [facility] Ketones Auto test strip (U) [Mass/Vol]Ordered By: Livia Lu on 06-11-2022 Ketones (U) [Mass/Vol] Negative Negative [facility] Laboratory - Chemistry and C hemistry - challengeOrdered By: Livia Lu on 06-11-2022 GFR/1.73 sq M.predicted MDRD (S/P/Bld) [Vol rate/Area] 11.475 mL/min/{1.73_m2} [facility] - UrinalysisOrder ed By: Livia Lu on 06-11-2022 Hyaline casts LM Ql (Urine sed) 0-8 [LPF] 0-8 [facility] Lactate [Moles/volume] in Se rum or PlasmaOrdered By: Livia Lu on 06-11-2022 Lactate [Moles/Vol] 1.1 mmol/L 0.5-2.2 [facility] Lactic Acidon 06-11-2022 Lactate [Moles/Vol] 1.1 mmol/L Normal 0.5-2.2 [facility] Comment on above: Result Comment: PERF ORMED BY: [facility] [place] [address] PATHOLOGIST INTERNAL MEDICINE PHYSICIAN SESAR VAUGHN M.D. Performed By: #### G LULS #### Point of Care testing , LeukoReduced RBCon LeukoReduced RBC TRANSFUSED 06/13/22 1200 Normal [facility] Leukocytes [#/volume] correc annalisa for nucleated erythrocytes in Blood by Automated counOrdered By: Livia Lu on 06-11-2022 WBC corrected for nucl RBC Auto (Bld) [#/Vol] 10.2 10*3/uL 4.1-10.5 [facility] Lymphocytes Auto (Bld) [#/Vo l]Ordered By: Livia Lu on 06-11-2022 Lymphocytes (Bld) [#/Vol] 0.3 10*3/uL 1.00-4.8 [facility] Lymphocytes/100 WBC Auto (Bl d)Ordered By: Livia Lu on 06-11-2022 Lymphocytes/100 WBC (Bld) 3.2 % . [facility] MCH Auto (RBC) [Entitic mass ]Ordered By: Livia Lu on 06-11-2022 MCH (RBC) [Entitic mass] 27.1 pg 27.5-35.2 [facility] MCHC Auto (RBC) [Mass/Vol]Or dered By: Livia Lu on 06-11-2022 MCHC (RBC) [Mass/Vol] 33.2 g/dL 32.5-35.6 [facility] MCV Auto (RBC) [Entitic vol] Ordered By: Livia Lu on 06-11-2022 MCV (RBC) [Entitic vol] 81.5 fL 83.5-101 [facility] Monocyte distribution width [Entitic volume] in Blood by AutomatedOrdered By: Livia Lu on 06-11-2022 Monocyte distribution width Auto (Bld) [Entitic vol] 17.28 % 0.00-20.00 [facility] Monocytes Auto (Bld) [#/Vol] Ordered By: Livia Lu on 06-11-2022 Monocytes (Bld) [#/Vol] 0.7 10*3/uL 0.0-0.8 [facility] Monocytes/100 WBC Auto (Bld) Ordered By: Livia Lu on 06-11-2022 Monocytes/100 WBC (Bld) 7.2 % . [facility] Neutrophils Auto (Bld) [#/Vo l]Ordered By: Livia Lu on 06-11-2022 Neutrophils (Bld) [#/Vol] 8.9 10*3/uL 1.8-7.7 [facility] Neutrophils/100 WBC Auto (Bl d)Ordered By: Livia Lu on 06-11-2022 Neutrophils/100 WBC (Bld) 87.1 % . [facility] Nitrite Test strip Ql (U)Ord ered By: Livia Lu on 06-11-2022 Nitrite Ql (U) Negative Negative [facility] No Panel InformationOrdered By: Livia Lu on 06-11-2022 Bedside Glucose Comment Glu2: cleaned meter [facility] Creatinine Clearance (Chem 18.36 [facility] Nucleated erythrocytes [Pres ence] in Blood by Automated countOrdered By: Livia Lu on 06-11-2022 Nucleated RBC Auto Ql (Bld) 0.0 /100{WBC} 0-0.5 [facility] Platelet mean volume Auto (B ld) [Entitic vol]Ordered By: Livia Lu on 06-11-2022 Platelet mean volume (Bld) [Entitic vol] 8.8 fL 6.6-10.1 [facility] Platelets Auto (Bld) [#/Vol] Ordered By: Livia Lu on 06-11-2022 Platelets (Bld) [#/Vol] 244 10*3/uL 150-450 [facility] Potassium [Moles/volume] in Serum or PlasmaOrdered By: Livia Lu on 06-11-2022 Potassium [Moles/Vol] 4.4 mmol/L 3.5-5.1 [facility] Protein Auto test strip (U) [Mass/Vol]Ordered By: Livia Lu on 06-11-2022 Protein (U) [Mass/Vol] 300 mg/dL Negative [facility] Protein [Mass/volume] in Ser um or PlasmaOrdered By: Livia Lu on 06-11-2022 Protein [Mass/Vol] 6.9 g/dL 6.4-8.9 [facility] RBC Auto (Bld) [#/Vol]Ordere d By: Livia Lu on 06-11-2022 RBC (Bld) [#/Vol] 2.86 10*6/uL 3.90-5.60 [facility] Serum or plasma albumin/glob ulin mass ratioOrdered By: Livia Lu on 06-11-2022 Albumin/Globulin [Mass ratio] 0.7 {ratio} [facility] Serum or plasma anion gap de terminationOrdered By: Livia Lu on 06-11-2022 Anion gap [Moles/Vol] 17.1 mmol/L 6.0-15.0 [facility] Sodium [Moles/volume] in Ser um or PlasmaOrdered By: Livia Lu on 06-11-2022 Sodium [Moles/Vol] 137 mmol/L 136-145 [facility] Specific gravity Auto test s trip (U) [Rel density]Ordered By: Livia Lu on 06-11-2022 Specific gravity (U) [Rel density] 1.014 1.001-1.030 [facility] Squamous epithelial cells de tection in urine sediment by light microscopyOrdered By: Livia Lu on 06-11-2022 Epithelial cells.squamous LM Ql (Urine sed) 1-2 [HPF] 0-2 [facility] Type and Screenon 06-11-2022 ABO and Rh group Nom (Bld) Blood group A Rh(D) positive Normal [facility] Comment on above: Order Comment: Trans fuse now? Y Number of units to transfuse now? 1 Transfuse now? Y Number of units to transfuse now? 1 Urea nitrogen [Mass/volume] in Serum or PlasmaOrdered By: Livia Lu on 06-11-2022 Urea nitrogen [Mass/Vol] 111 mg/dL 7- [facility] Urine bacteria detection by automated methodOrdered By: Livia Lu on 06-11-2022 Bacteria Auto Ql (U) None seen None Seen [facility] Urine clarity by refractomet ry automatedOrdered By: Livia Lu on 06-11-2022 Clarity Refractometry automated (U) Clear Clear [facility] Urine glucose measurement by automated test strip (mass/volume)Ordered By: Livia Lu on 06-11-2022 Glucose Auto test strip (U) [Mass/Vol] Normal mg/dL Normal [facility] Urine hemoglobin detection b y automated test stripOrdered By: Livia Lu on 06-11-2022 Hemoglobin Auto test strip Ql (U) Negative Negative [facility] Urine leukocyte esterase det ection by automated test stripOrdered By: Livia Lu on 06-11-2022 Leukocyte esterase Auto test strip Ql (U) Negative Negative [facility] Urobilinogen Auto test strip (U) [Mass/Vol]Ordered By: Livia Lu on 06-11-2022 Urobilinogen (U) [Mass/Vol] Normal mg/dL Normal [facility] WBC Auto (Bld) [#/Vol]Ordere d By: Livia Lu on 06-11-2022 WBC (Bld) [#/Vol] 10.2 10*3/uL 4.1-10.5 [facility] XR foot RT min 3V*on 023 XR foot RT min 3V* [facility] [place] [address] XRay Report Signed Patient: Gopal Yates Jr MR#: [id number] : 1965 Acct:[id number] Age/Sex: 56 / M ADM Date: 06/11/22 Loc: ER Room: Type: [facility] ER Attending Dr: Copies to: Livia Lu APRN Ordering Provider: Livia Lu APRN Date of Service: 06/11/22 XR/XR chest 1V portable: Fever ([id number]) XR/XR foot RT min 3V*: Fever CLINICAL DATA: FEVER. WOUND VAC ON RIGHT FOOT. PORTABLE AP ERECT CHEST 1630 hours COMPARISON: 05/20/2022 chest x-ray and CT There is a new left-sided PICC line overlying the distal superior vena cava. The cardiac and mediastinal contours are similar. There is no developing consolidation on the left. There are continued pleural-parenchymal changes on the right with increasing fluid within the major fissure. The osseous structures are intact. XR/XR chest 1V portable IMPRESSION: RIGHT-SIDED PLEURAL-PARENCHYMAL CHANGES, POTENTIALLY SLIGHTLY WORSE. RIGHT FOOT -3 views COMPARISON: 05/20/2022 AP, lateral oblique views were obtained. There is status post amputation of the fifth toe at the proximal metatarsal. There is interval amputation of the fourth toe at the metatarsal phalangeal joint. There is still irregularity at the fifth metatarsal stump and subtle lucency at the third and fourth metatarsal heads. There is new bony destruction and/or fracture at the base of the proximal phalanx of the third toe. There are degenerative changes at the first toe. There is spurring at the dorsum of the tarsals. There is a tiny enthesophyte at the insertion of the Achilles tendon. There is a wound VAC at the dorsum of the foot in the tarsal metatarsal region. IMPRESSION: OLD AMPUTATION OF THE FIFTH AND NEW AT THE FOURTH TOES. CONTINUED SUBTLE LUCENCY AT THE HEADS OF THE THIRD AND FOURTH METATARSALS. NEW BONY DESTRUCTION AND/OR FRACTURE AT THE PROXIMAL PHALANX OF THE THIRD TOE. Impression dictated by: Tana Perry M.D.06/11/2022 5:14 PM Dictation Location: [place] [address] Transcribed By: DOROTHY 06/11/22 171 Dictated By: Tana Perry MD 06/11/22 1705 Signed By: 06/11/22 171 Normal [facility] pH Auto test strip (U)Ordere d By: Livia Lu on 06-11-2022 pH (U) 5.5 [pH] 5.0-9.0 [facility] Aerobic cultureOrdered By: Hortencia Griggs on 06-10-2022 Bacteria identified Aer cx Nom (Unsp spec) 2 Days [facility] Superficial Wound Cultureon 06-10-2022 Superficial Wound Culture Light Normal Skin Efren 2 Days PERFORMED BY: [place] [address] PATHOLOGIST INTERNAL MEDICINE PHYSICIAN SESAR VAUGHN M.D. Normal [facility] Comment on above: Performed By: #### C BCNO, BMP #### [facility] [address] [place] [address] C reactive protein [Mass/vol ume] in Serum or PlasmaOrdered By: Ashutosh Thomas on 06-05-2022 CRP [Mass/Vol] 11.7 mg/dL 0.0-0.4 [facility] C-Reactive Proteinon 023 C-Reactive Protein 11.7 mg/dL High 0.0-0.4 [facility] Comment on above: Result Comment: PERF ORMED BY: [place] [address] PATHOLOGIST INTERNAL MEDICINE PHYSICIAN SESAR VAUGHN M.D. Performed By: #### C RP #### [address] Hepatitis B Core Antibodyon 06-05-2022 Hepatitis B Core Antibody Negative Normal Negative [facility] Comment on above: Result Comment: Perf ormed at: - [facility] [id number] [place] Worker: Rob Loza PhD, Phone: [phone] Performed By: #### R ENAL, CBC #### [facility] [address] [place] [address] [place] Hepatitis B Surface Antibody on 06-05-2022 Hepatitis B Surface Antibody Non-Reactive Normal . [facility] Comment on above: Result Comment: Non Reactive: Inconsistent with immunity, less than 10 mIU/mL Reactive: Consistent with immunity, greater than 9.9 mIU/mL Performed By: #### R ENAL, CBC #### [facility] [address] [place] [address] Hepatitis B Surface Antigeno n 06-05-2022 HBsAg Screen Negative Normal Negative [facility] Comment on above: Result Comment: PERF ORMED BY: [place] [address] PATHOLOGIST INTERNAL MEDICINE PHYSICIAN SESAR VAUGHN M.D. Performed By: #### R LYNETTE, SANDOVAL #### [facility] [address] Hepatitis B virus surface Ag [Presence] in Serum or Plasma by ImmunoassayOrdered By: Yvonne Barboza on 06-05-2022 HBV surface Ag IA Ql Negative Negative [facility] No Panel InformationOrdered By: Yvonne Barboza on 06-05-2022 Hepatitis B Core Total Antibody Negative Negative [facility] Comment on above: Performed at: [place] [id number] Director: Rob Loza PhD, Phone: [phone] Serum hepatitis B virus surf carlee antibody detectionOrdered By: Yvonne Barboza on 06-05-2022 HBV surface Ab Ql (S) Non-Reactive . [facility] Comment on above: Non Reactive: Incons istent with immunity, less than 10 mIU/mL Reactive: Consistent with immunity, greater than 9.9 mIU/mL Arterial blood standard base excess determination by calculationOrdered By: Sohan Kellogg on 05-28-2022 Base excess standard Calc (BldA) [Moles/Vol] -5 mmol/L -2-3 [facility] Basic Metabolic Panelon Anion gap [Moles/Vol] 14.8 mmol/L Normal 6.0-15.0 [facility] Comment on above: Performed By: #### C CASE BMP #### [facility] [address] [place] [address] [place] Calcium [Mass/Vol] 8.3 mg/dL Low 8.6-10.3 [facility] Comment on above: Performed By: #### C CASE BMP #### [facility] [address] [place] [address] [place] Chloride [Moles/Vol] 107 mmol/L Normal 98-107 [facility] Comment on above: Performed By: #### C CASE, BMP #### [facility] [address] [place] [address] [place] CO2 [Moles/Vol] 20.2 mmol/L Low 21.0-31.0 [facility] Comment on above: Performed By: #### C CASE, BMP #### [facility] [address] Creatinine [Mass/Vol] 4.50 mg/dL High 0.70-1.30 [facility] Comment on above: Performed By: #### C CASE, BMP #### [facility] [address] [place] [address] [place] Creatinine Clr Calc Pharmacy 22.08 [facility] Comment on above: Result Comment: PERF ORMED BY: [place] [address] PATHOLOGIST INTERNAL MEDICINE PHYSICIAN SESAR VAUGHN M.D. Performed By: #### C CASE, BMP #### [facility] [address] [place] [address] [place] GFR/1.73 sq M.predicted MDRD (S/P/Bld) [Vol rate/Area] 14.440 mL/min/{1.73_m2} Normal [facility] Comment on above: Performed By: #### C CASE, BMP #### [facility] [address] [place] [address] [place] Glucose [Mass/Vol] 119 mg/dL High 74-109 [facility] Comment on above: Result Comment: [place] Glucose Reference Range is dependent on time and content of last meal. Glucose of more than 200 mg/dL in a nonstressed, ambulatory subject supports the diagnosis of Diabetes Mellitus. ADA recommended reference range Performed By: #### C CASE, BMP #### [facility] [address] [place] [address] [place] Potassium [Moles/Vol] 4.0 mmol/L Normal 3.5-5.1 [facility] Comment on above: Performed By: #### C CASE, BMP #### [facility] [address] [place] [address] [place] Sodium [Moles/Vol] 138 mmol/L Normal 136-145 [facility] Comment on above: Performed By: #### C CASE, ESTHER #### [facility] [address] Urea nitrogen [Mass/Vol] 71 mg/dL High 7-25 [facility] Comment on above: Performed By: #### C CASE, ESTHER #### [facility] [address] Blood carbon dioxide, total measurement by calculation (moles/volume)Ordered By: Sohan Kellogg on 05-28-2022 CO2 Calc (Bld) [Moles/Vol] 20 mmol/L 23-[address] [facility] [address] biopsyOrdered By: Sohan Kellogg on 05-28-2022 Hematocrit (Bld) [Volume fraction] 28.0 % 38.0-51.0 [facility] Calcium [Mass/volume] in Ser um or PlasmaOrdered By: Gopal Ochoa on 05-28-2022 Calcium [Mass/Vol] 8.3 mg/dL 8.6-10.3 [facility] Carbon dioxide, total [Moles /volume] in Serum or PlasmaOrdered By: Gopal Ochoa on 05-28-2022 CO2 [Moles/Vol] 20.2 mmol/L 21.0-31.0 [facility] Chloride [Moles/volume] in S yulissa or PlasmaOrdered By: Gopal Ochoa on 05-28-2022 Chloride [Moles/Vol] 107 mmol/L 98-107 [facility] Creatinine [Mass/volume] in Serum or PlasmaOrdered By: Gopal Ochoa on 05-28-2022 Creatinine [Mass/Vol] 4.50 mg/dL 0.70-1.30 [facility] Erythrocyte distribution wid th Auto (RBC) [Ratio]Ordered By: Gopal Ochoa on 05-28-2022 Erythrocyte distribution width (RBC) [Ratio] 15.5 % 12.0-14.8 [facility] Glucose Glucometer (BldC) [M ass/Vol]Ordered By: Sohan Kellogg on 05-28-2022 Glucose [Mass/Vol] 122 mg/dL [facility] Comment on above: Random Glucose Refer ence Range is dependent on time and content of last meal. Glucose of more than 200 mg/dL in a nonstressed, ambulatory subject supports the diagnosis of Diabetes Mellitus. Glucose [Mass/Vol] 116 mg/dL 70-105 [facility] Glucose Poct Glucometerson 0 05-28-2022 Glucose [Mass/Vol] 122 mg/dL Normal [facility] Comment on above: Result Comment: [place] om Glucose Reference Range is dependent on time and content of last meal. Glucose of more than 200 mg/dL in a nonstressed, ambulatory subject supports the diagnosis of Diabetes Mellitus. PERFORMED BY: [place] [address] PATHOLOGIST INTERNAL MEDICINE PHYSICIAN SESAR VAUGHN M.D. Performed By: #### R ENAL, CBC #### [address] Glucose [Mass/Vol] 120 mg/dL Normal [facility] Comment on above: Result Comment: [place] om Glucose Reference Range is dependent on time and content of last meal. Glucose of more than 200 mg/dL in a nonstressed, ambulatory subject supports the diagnosis of Diabetes Mellitus. PERFORMED BY: [place] [address] PATHOLOGIST INTERNAL MEDICINE PHYSICIAN SESAR VAUGHN M.D. Performed By: #### C BCNO, BMP #### [address] Glucose [Mass/volume] in Ser um or PlasmaOrdered By: Gopal Ochoa on 05-28-2022 Glucose [Mass/Vol] 119 mg/dL 74-109 [facility] Comment on above: ADA recommended refe rence rangeRandom Glucose Reference Range is dependent on time and content of last meal. Glucose of more than 200 mg/dL in a nonstressed, ambulatory subject supports the diagnosis of Diabetes Mellitus. Hematocrit Auto (Bld) [Volum e fraction]Ordered By: Gopal Ochoa on 05-28-2022 Hematocrit (Bld) [Volume fraction] 28.8 % 38.8-50.0 [facility] Hemoglobin Calc (Bld) [Mass/ Vol]Ordered By: Sohan Kellogg on 05-28-2022 Hemoglobin (Bld) [Mass/Vol] 9.5 g/dL 12.0-17.0 [facility] Hemoglobin [Mass/volume] in BloodOrdered By: Gopal Ochoa on 05-28-2022 Hemoglobin (Bld) [Mass/Vol] 9.5 g/dL 13.0-17.0 [facility] Hemogram CBC Without Diffon 05-28-2022 Erythrocyte distribution width (RBC) [Ratio] 15.5 % High 12.0-14.8 [facility] Comment on above: Performed By: #### C BCNO, BMP #### [facility] [address] Hematocrit (Bld) [Volume fraction] 28.8 % Low 38.8-50.0 [facility] Comment on above: Performed By: #### C BCNO, BMP #### [facility] [address] Hemoglobin (Bld) [Mass/Vol] 9.5 g/dL Low 13.0-17.0 [facility] Comment on above: Performed By: #### C BCNO, BMP #### [facility] [address] MCH (RBC) [Entitic mass] 27.1 pg Low 27.5-35.2 [facility] Comment on above: Performed By: #### C BCNO, BMP #### [address] MCV (RBC) [Entitic vol] 81.6 fL Low 83.5-101 [facility] Comment on above: Performed By: #### C BCNO, BMP #### [facility] [address] Mean Corpuscular HGB Conc 33.2 g/dL Normal 32.5-35.6 [facility] Comment on above: Performed By: #### C BCNO, BMP #### [facility] [address] Platelet mean volume (Bld) [Entitic vol] 8.5 fL Normal 6.6-10.1 [facility] Comment on above: Result Comment: PERF ORMED BY: [facility] [address] [place] [address] PATHOLOGIST INTERNAL MEDICINE PHYSICIAN SESAR VAUGHN M.D. Performed By: #### C BCNO, BMP #### [facility] [address] [place] [address] [place] Platelets (Bld) [#/Vol] 302 10*3/uL Normal 150-450 [facility] Comment on above: Performed By: #### C BCNO, BMP #### [facility] [address] RBC (Bld) [#/Vol] 3.52 10*6/uL Low 3.90-5.60 [facility] Comment on above: Performed By: #### C BCNO, BMP #### [facility] [address] WBC (Bld) [#/Vol] 6.9 10*3/uL Normal 4.1-10.5 [facility] Comment on above: Performed By: #### C BCNO, BMP #### [facility] [address] [place] [address] [place] ISTAT ABGon 05-28-2022 CO2 [Moles/Vol] 20 mmol/L Low 23-29 [facility] Comment on above: Performed By: #### R ENAL, CBC #### [place] [address] [place] Glucose [Mass/Vol] 116 mg/dL High 70-105 [facility] Comment on above: Result Comment: PERF ORMED BY: [facility] [address] [place] [address] PATHOLOGIST INTERNAL MEDICINE PHYSICIAN SESAR VAUGHN M.D. Performed By: #### R ENAL, CBC #### [address] HCO3 (Bld) [Moles/Vol] 19.4 mmol/L Low 22.0-28.0 [facility] Comment on above: Performed By: #### R ENAL, CBC #### [facility] [address] Hematocrit (Bld) [Volume fraction] 28.0 % Low 38.0-51.0 [facility] Comment on above: Performed By: #### R LYNETTE CBC #### [facility] [address] Hemoglobin (Bld) [Mass/Vol] 9.5 g/dL Low 12.0-17.0 [facility] Comment on above: Performed By: #### R LYNETTE, CBC #### [facility] [address] [address] ISTAT Base Excess -5 mmol/L Low -2 TO 3 [facility] Comment on above: Performed By: #### R LYNETTE CBC #### [address] ISTAT Ionized Calcium 1.22 mol/L Normal 1.12-1.32 [facility] Comment on above: Performed By: #### Iesha OJEDA CBC #### [place] [address] [place] ISTAT PCO2 27.8 mm[Hg] Low 35-51 [facility] Comment on above: Performed By: #### R LYNETTE CBC #### [address] ISTAT Ph 7.451 High 7.31-7.45 [facility] Comment on above: Performed By: #### R LYNETTE, CBC #### [address] ISTAT PO2 43 mm[Hg] Low 80-105 [facility] Comment on above: Performed By: #### R LYNETTE CBC #### [address] Oxygen saturation in Blood 82 % Low 95-98 [facility] Comment on above: Result Comment: Refe rence ranges reflect baseline specimens only Performed By: #### R LYNETTE CBC #### [place] [address] [place] Potassium [Moles/Vol] 4.0 mmol/L Normal 3.5-4.9 [facility] Comment on above: Performed By: #### R ENAL, CBC #### [facility] [address] Sodium [Moles/Vol] 141 mmol/L Normal 138-146 [facility] Comment on above: Performed By: #### R ENAL, CBC #### [facility] [address] Laboratory - Chemistry and C hemistry - challengeOrdered By: Gopal Ochoa on 05-28-2022 GFR/1.73 sq M.predicted MDRD (S/P/Bld) [Vol rate/Area] 14.440 mL/min/{1.73_m2} [facility] Leukocytes [#/volume] correc annalisa for nucleated erythrocytes in Blood by Automated counOrdered By: Gopal Ochoa on 05-28-2022 WBC corrected for nucl RBC Auto (Bld) [#/Vol] 6.9 10*3/uL 4.1-10.5 [facility] MCH Auto (RBC) [Entitic mass ]Ordered By: Gopal Ochoa on 05-28-2022 MCH (RBC) [Entitic mass] 27.1 pg 27.5-35.2 [facility] MCHC Auto (RBC) [Mass/Vol]Or dered By: Gopal Ochoa on 05-28-2022 MCHC (RBC) [Mass/Vol] 33.2 g/dL 32.5-35.6 [facility] MCV Auto (RBC) [Entitic vol] Ordered By: Gopal Ochoa on 05-28-2022 MCV (RBC) [Entitic vol] 81.6 fL 83.5-101 [facility] Monocyte %Ordered By: Sohan Kellogg on 05-28-2022 Monocyte % 27.8 mm[Hg] 35-51 [facility] Monocyte % 43 mm[Hg] 80-105 [facility] No Panel InformationOrdered By: Gopal Ochoa on 05-28-2022 Pharmacy Creatinine Clearance (Chem 22.08 [facility] Platelet mean volume Auto (B ld) [Entitic vol]Ordered By: Gopal Ochoa on 05-28-2022 Platelet mean volume (Bld) [Entitic vol] 8.5 fL 6.6-10.1 [facility] Platelets Auto (Bld) [#/Vol] Ordered By: Gopal Ochoa on 05-28-2022 Platelets (Bld) [#/Vol] 302 10*3/uL 150-450 [facility] Potassium (Bld) [Moles/Vol]O rdered By: Sohan Kellogg on 05-28-2022 Potassium [Moles/Vol] 4.0 mmol/L 3.5-4.9 [facility] Potassium [Moles/volume] in Serum or PlasmaOrdered By: Gopal Ochoa on 05-28-2022 Potassium [Moles/Vol] 4.0 mmol/L 3.5-5.1 [facility] RBC Auto (Bld) [#/Vol]Ordere d By: Gopal Ochoa on 05-28-2022 RBC (Bld) [#/Vol] 3.52 10*6/uL 3.90-5.60 [facility] Serum or plasma anion gap de terminationOrdered By: Gopal Ochoa on 05-28-2022 Anion gap [Moles/Vol] 14.8 mmol/L 6.0-15.0 [facility] Sodium (Bld) [Moles/Vol]Orde red By: Sohan Kellogg on 05-28-2022 Sodium [Moles/Vol] 141 mmol/L 138-146 [facility] Sodium [Moles/volume] in Ser um or PlasmaOrdered By: Gopal Ochoa on 05-28-2022 Sodium [Moles/Vol] 138 mmol/L 136-145 [facility] Urea nitrogen [Mass/volume] in Serum or PlasmaOrdered By: Gopal Ochoa on 05-28-2022 Urea nitrogen [Mass/Vol] 71 mg/dL 7-25 [facility] Whole blood bicarbonate bertha urementOrdered By: Sohan Kellogg on 05-28-2022 HCO3 (Bld) [Moles/Vol] 19.4 mmol/L 22.0-28.0 [facility] Whole blood ionized calcium measurement (moles/volume)Ordered By: Sohan Kellogg on 05-28-2022 Calcium.ionized (Bld) [Moles/Vol] 1220 mmol/L 1.12-1.32 [facility] Whole blood oxygen saturatio n measurementOrdered By: Sohan Kellogg on 05-28-2022 Oxygen saturation in Blood 82 % 95-98 [facility] Comment on above: Reference ranges ref lect baseline specimens only Whole blood pHOrdered By: Jeniffer Kellogg on 05-28-2022 pH (Bld) 7.451 Units 7.31-7.45 [facility] C reactive protein [Mass/vol ume] in Serum or PlasmaOrdered By: Eddy Griggs on 05-27-2022 CRP [Mass/Vol] 6.3 mg/dL 0.0-0.4 [facility] C-Reactive Proteinon 023 C-Reactive Protein 6.3 mg/dL High 0.0-0.4 [facility] Comment on above: Result Comment: PERF ORMED BY: [facility] [address] [place] [address] PATHOLOGIST INTERNAL MEDICINE PHYSICIAN SESAR VAUGHN M.D. Performed By: #### C ####[facility] [place] [id number] [facility] Albumin [Mass/volume] in Ser um or PlasmaOrdered By: Salvador Alonso on 05-25-2022 Albumin [Mass/Vol] 1.7 g/dL 3.2-5.5 [facility] Basophils Auto (Bld) [#/Vol] Ordered By: Salvador Alonso on 05-25-2022 Basophils (Bld) [#/Vol] 0.1 10*3/uL 0.0-0.2 [facility] Basophils/100 WBC Auto (Bld) Ordered By: Salvador Alonso on 05-25-2022 Basophils/100 WBC (Bld) 1.0 % . [facility] Calcium [Mass/volume] in Ser um or PlasmaOrdered By: Salvador Alonso on 05-25-2022 Calcium [Mass/Vol] 7.8 mg/dL 8.2-10.2 [facility] Carbon dioxide, total [Moles /volume] in Serum or PlasmaOrdered By: Salvador Alonso on 05-25-2022 CO2 [Moles/Vol] 21.0 mmol/L 22.0-30.0 [facility] Chloride [Moles/volume] in S yulissa or PlasmaOrdered By: SalvadorRegan on 05-25-2022 Chloride [Moles/Vol] 104 mmol/L 95-114 [facility] Complete Blood Count Auto Di ffon 05-25-2022 Basophils (Bld) [#/Vol] 0.1 10*3/uL Normal 0.0-0.2 [facility] Comment on above: Result Comment: PERF ORMED BY: [facility] [address] [place] [address] PATHOLOGIST INTERNAL MEDICINE PHYSICIAN SESAR VAUGHN M.D. Performed By: #### G LULS #### Point of Care testing , Basophils/100 WBC (Bld) 1.0 % Normal . [facility] Comment on above: Performed By: #### G LULS #### Point of Care testing , Eosinophils (Bld) [#/Vol] 0.3 10*3/uL Normal 0.0-0.45 [facility] Comment on above: Performed By: #### G LULS #### Point of Care testing , Eosinophils/100 WBC (Bld) 3.4 % Normal . [facility] Comment on above: Performed By: #### G LULS #### Point of Care testing , Erythrocyte distribution width (RBC) [Ratio] 15.0 % High 12.0-14.8 [facility] Comment on above: Performed By: #### G LULS #### Point of Care testing , Hematocrit (Bld) [Volume fraction] 23.7 % Low 38.8-50.0 [facility] Comment on above: Performed By: #### G LULS #### Point of Care testing , Hemoglobin (Bld) [Mass/Vol] 7.9 g/dL Low 13.0-17.0 [facility] Comment on above: Performed By: #### G LULS #### Point of Care testing , Lymphocytes (Bld) [#/Vol] 0.7 10*3/uL Low 1.00-4.8 [facility] Comment on above: Performed By: #### G LULS #### Point of Care testing , Lymphocytes/100 WBC (Bld) 9.2 % Normal . [facility] Comment on above: Performed By: #### G LULS #### Point of Care testing , MCH (RBC) [Entitic mass] 27.4 pg Low 27.5-35.2 [facility] Comment on above: Performed By: #### G LULS #### Point of Care testing , MCV (RBC) [Entitic vol] 81.7 fL Low 83.5-101 [facility] Comment on above: Performed By: #### G LULS #### Point of Care testing , Mean Corpuscular HGB Conc 33.6 g/dL Normal 32.5-35.6 [facility] Comment on above: Performed By: #### G LULS #### Point of Care testing , Monocytes (Bld) [#/Vol] 0.8 10*3/uL Normal 0.0-0.8 [facility] Comment on above: Performed By: #### G HOLGERLS #### Point of Care testing , Monocytes/100 WBC (Bld) 10.5 % Normal . [facility] Comment on above: Performed By: #### G LULS #### Point of Care testing , Neutrophils (Bld) [#/Vol] 5.8 10*3/uL Normal 1.8-7.7 [facility] Comment on above: Performed By: #### G LULS #### Point of Care testing , Neutrophils/100 WBC (Bld) 75.9 % Normal . [facility] Comment on above: Performed By: #### G LULS #### Point of Care testing , NRBC% 0.0 /100{WBC} Normal 0-0.5 [facility] Comment on above: Performed By: #### G LULS #### Point of Care testing , Platelet mean volume (Bld) [Entitic vol] 8.6 fL Normal 6.6-10.1 [facility] Comment on above: Performed By: #### G LULS #### Point of Care testing , Platelets (Bld) [#/Vol] 191 10*3/uL Normal 150-450 [facility] Comment on above: Performed By: #### G LULS #### Point of Care testing , RBC (Bld) [#/Vol] 2.90 10*6/uL Low 3.90-5.60 [facility] Comment on above: Performed By: #### G LULS #### Point of Care testing , WBC (Bld) [#/Vol] 7.7 10*3/uL Normal 4.1-10.5 [facility] Comment on above: Performed By: #### G LULS #### Point of Care testing , Creatinine and Glomerular fi ltration rate.predicted panel (S/P/Bld)Ordered By: Salvador Alonso on 05-25-2022 Creatinine [Mass/Vol] 4.55 mg/dL 0.64-1.27 [facility] Eosinophils Auto (Bld) [#/Vo l]Ordered By: Salvador Alonso on 05-25-2022 Eosinophils (Bld) [#/Vol] 0.3 10*3/uL 0.0-0.45 [facility] Eosinophils/100 WBC Auto (Bl d)Ordered By: Salvador Alonso on 05-25-2022 Eosinophils/100 WBC (Bld) 3.4 % . [facility] Erythrocyte distribution wid th Auto (RBC) [Ratio]Ordered By: Salvador Alonso on 05-25-2022 Erythrocyte distribution width (RBC) [Ratio] 15.0 % 12.0-14.8 [facility] Estimated glomerular filtrat ion rate (GFR) non- AmericanOrdered By: Salvador Alonso on 05-25-2022 GFR/1.73 sq M.predicted among non-blacks MDRD (S/P/Bld) [Vol rate/Area] 13 mL/Min [facility] Glucose Glucometer (BldC) [M ass/Vol]Ordered By: Scotty Kahn on 05-25-2022 Glucose [Mass/Vol] 151 mg/dL [facility] Comment on above: Random Glucose Refer ence Range is dependent on time and content of last meal. Glucose of more than 200 mg/dL in a nonstressed, ambulatory subject supports the diagnosis of Diabetes Mellitus. Glucose Poct Glucometerson 0 05-25-2022 Commemt1 Glu2: Cleaned Meter [facility] Comment on above: Result Comment: PERF ORMED BY: [place] [address] PATHOLOGIST INTERNAL MEDICINE PHYSICIAN SESAR VAUGHN M.D. Performed By: #### G LULS #### Point of Care testing , Glucose [Mass/Vol] 151 mg/dL Normal [facility] Comment on above: Result Comment: [place] om Glucose Reference Range is dependent on time and content of last meal. Glucose of more than 200 mg/dL in a nonstressed, ambulatory subject supports the diagnosis of Diabetes Mellitus. Performed By: #### G LULS #### Point of Care testing , Commemt1 Glu2: Cleaned Meter [facility] Comment on above: Result Comment: PERF ORMED BY: [place] [address] PATHOLOGIST INTERNAL MEDICINE PHYSICIAN SESAR VAUGHN M.D. Performed By: #### C CASE, BMP #### [facility] [address] [place] [address] [place] Glucose [Mass/Vol] 101 mg/dL Normal [facility] Comment on above: Result Comment: [place] om Glucose Reference Range is dependent on time and content of last meal. Glucose of more than 200 mg/dL in a nonstressed, ambulatory subject supports the diagnosis of Diabetes Mellitus. Performed By: #### C BCNO, BMP #### [facility] [address] [place] [address] [place] Glucose [Mass/volume] in Ser um or PlasmaOrdered By: Salvador Alonso on 05-25-2022 Glucose [Mass/Vol] 94 mg/dL 70-100 [facility] Comment on above: ADA recommended refe rence rangeRandom Glucose Reference Range is dependent on time and content of last meal. Glucose of more than 200 mg/dL in a nonstressed, ambulatory subject supports the diagnosis of Diabetes Mellitus. Hematocrit Auto (Bld) [Volum e fraction]Ordered By: Salvador Alonso on 05-25-2022 Hematocrit (Bld) [Volume fraction] 23.7 % 38.8-50.0 [facility] Hemoglobin [Mass/volume] in BloodOrdered By: Salvador Alonso on 05-25-2022 Hemoglobin (Bld) [Mass/Vol] 7.9 g/dL 13.0-17.0 [facility] Leukocytes [#/volume] correc annalisa for nucleated erythrocytes in Blood by Automated counOrdered By: Salvador Alonso on 05-25-2022 WBC corrected for nucl RBC Auto (Bld) [#/Vol] 7.7 10*3/uL 4.1-10.5 [facility] Lymphocytes Auto (Bld) [#/Vo l]Ordered By: Salvador Alonso on 05-25-2022 Lymphocytes (Bld) [#/Vol] 0.7 10*3/uL 1.00-4.8 [facility] Lymphocytes/100 WBC Auto (Bl d)Ordered By: Salvador Alonso on 05-25-2022 Lymphocytes/100 WBC (Bld) 9.2 % . [facility] MCH Auto (RBC) [Entitic mass ]Ordered By: Salvador Alonso on 05-25-2022 MCH (RBC) [Entitic mass] 27.4 pg 27.5-35.2 [facility] MCHC Auto (RBC) [Mass/Vol]Or dered By: Salvador Alonso on 05-25-2022 MCHC (RBC) [Mass/Vol] 33.6 g/dL 32.5-35.6 [facility] MCV Auto (RBC) [Entitic vol] Ordered By: Salvador Alonso on 05-25-2022 MCV (RBC) [Entitic vol] 81.7 fL 83.5-101 [facility] Monocytes Auto (Bld) [#/Vol] Ordered By: Salvador Alonso on 05-25-2022 Monocytes (Bld) [#/Vol] 0.8 10*3/uL 0.0-0.8 [facility] Monocytes/100 WBC Auto (Bld) Ordered By: Salvador Alonso on 05-25-2022 Monocytes/100 WBC (Bld) 10.5 % . [facility] Neutrophils Auto (Bld) [#/Vo l]Ordered By: Salvador Alonso on 05-25-2022 Neutrophils (Bld) [#/Vol] 5.8 10*3/uL 1.8-7.7 [facility] Neutrophils/100 WBC Auto (Bl d)Ordered By: Salvador Alonso on 05-25-2022 Neutrophils/100 WBC (Bld) 75.9 % . [facility] No Panel InformationOrdered By: Scotty Kahn on 05-25-2022 Bedside Glucose Comment Glu2: cleaned meter [facility] No Panel InformationOrdered By: Salvador Alonso on 05-25-2022 Estimated GFR () 16 mL/Min [facility] Comment on above: GFR estimated refere nce range: According to KDOQI guidelines, <60 ml/min/1.73m2 is sufficient to diagnose a patient with chronic kidney disease. Pharmacy Creatinine Clearance (Chem 21.99 [facility] Nucleated erythrocytes [Pres ence] in Blood by Automated countOrdered By: Salvador Alonso on 05-25-2022 Nucleated RBC Auto Ql (Bld) 0.0 /100{WBC} 0-0.5 [facility] Phosphate [Mass/volume] in S yulissa or PlasmaOrdered By: Salvador Alonso on 05-25-2022 Phosphate [Mass/Vol] 4.1 mg/dL 2.5-4.6 [facility] Platelet mean volume Auto (B ld) [Entitic vol]Ordered By: Salvador Alonso on 05-25-2022 Platelet mean volume (Bld) [Entitic vol] 8.6 fL 6.6-10.1 [facility] Platelets Auto (Bld) [#/Vol] Ordered By: Salvador Alonso on 05-25-2022 Platelets (Bld) [#/Vol] 191 10*3/uL 150-450 [facility] Potassium [Moles/volume] in Serum or PlasmaOrdered By: Salvador Alonso on 05-25-2022 Potassium [Moles/Vol] 4.2 mmol/L 3.5-5.1 [facility] RBC Auto (Bld) [#/Vol]Ordere d By: Salvador Alonso on 05-25-2022 RBC (Bld) [#/Vol] 2.90 10*6/uL 3.90-5.60 [facility] Renal Function Panelon 05-25 Albumin [Mass/Vol] 1.7 g/dL Low 3.2-5.5 [facility] Comment on above: Performed By: #### G LULS #### Point of Care testing , Anion gap [Moles/Vol] 13.2 mmol/L Normal 6.0-15.0 [facility] Comment on above: Performed By: #### G LULS #### Point of Care testing , Calcium [Mass/Vol] 7.8 mg/dL Low 8.2-10.2 [facility] Comment on above: Performed By: #### G LULS #### Point of Care testing , Chloride [Moles/Vol] 104 mmol/L Normal 95-114 [facility] Comment on above: Performed By: #### G LULS #### Point of Care testing , CO2 [Moles/Vol] 21.0 mmol/L Low 22.0-30.0 [facility] Comment on above: Performed By: #### G LULS #### Point of Care testing , Creatinine [Mass/Vol] 4.55 mg/dL High 0.64-1.27 [facility] Comment on above: Performed By: #### G LULS #### Point of Care testing , Creatinine Clr Calc Pharmacy 21.99 [facility] Comment on above: Result Comment: PERF ORMED BY: [facility] [place] [address] PATHOLOGIST INTERNAL MEDICINE PHYSICIAN SESAR VAUGHN M.D. Performed By: #### G LULS #### Point of Care testing , Estimated GFR ( Wendy 16 [facility] Comment on above: Result Comment: GFR estimated reference range: According to KDOQI guidelines, <60 ml/min/1.73m2 is sufficient to diagnose a patient with chronic kidney disease. Performed By: #### G LULS #### Point of Care testing , Estimated GFR (Non- Am 13 [facility] Comment on above: Performed By: #### G LULS #### Point of Care testing , Glucose [Mass/Vol] 94 mg/dL Normal 70-100 [facility] Comment on above: Result Comment: [place] Glucose Reference Range is dependent on time and content of last meal. Glucose of more than 200 mg/dL in a nonstressed, ambulatory subject supports the diagnosis of Diabetes Mellitus. ADA recommended reference range Performed By: #### G LULS #### Point of Care testing , Phosphate [Mass/Vol] 4.1 mg/dL Normal 2.5-4.6 [facility] Comment on above: Performed By: #### G LULS #### Point of Care testing , Potassium [Moles/Vol] 4.2 mmol/L Normal 3.5-5.1 [facility] Comment on above: Performed By: #### G LULS #### Point of Care testing , Sodium [Moles/Vol] 134 mmol/L Low 136-146 [facility] Comment on above: Performed By: #### G LULS #### Point of Care testing , Urea nitrogen [Mass/Vol] 68 mg/dL High 9-23 [facility] Comment on above: Performed By: #### G LULS #### Point of Care testing , Serum or plasma anion gap de terminationOrdered By: Salvador Alonso on 05-25-2022 Anion gap [Moles/Vol] 13.2 mmol/L 6.0-15.0 [facility] Sodium [Moles/volume] in Ser um or PlasmaOrdered By: Salvador Alonso on 05-25-2022 Sodium [Moles/Vol] 134 mmol/L 136-146 [facility] Urea nitrogen [Mass/volume] in Serum or PlasmaOrdered By: Salvador Alonso on 05-25-2022 Urea nitrogen [Mass/Vol] 68 mg/dL 9 [facility] WBC Auto (Bld) [#/Vol]Ordere d By: Salvador Alonso on 05-25-2022 WBC (Bld) [#/Vol] 7.7 10*3/uL 4.1-10.5 [facility] Complete Blood Count Auto Di ffon 05-24-2022 Basophils (Bld) [#/Vol] 0.1 10*3/uL Normal 0.0-0.2 [facility] Comment on above: Result Comment: PERF ORMED BY: [place] [address] PATHOLOGIST INTERNAL MEDICINE PHYSICIAN SESAR VAUGHN M.D. Performed By: #### C BCNO, BMP #### [address] Basophils/100 WBC (Bld) 1.4 % Normal . [facility] Comment on above: Performed By: #### C BCNO, BMP #### [facility] [address] [place] [address] [place] Eosinophils (Bld) [#/Vol] 0.2 10*3/uL Normal 0.0-0.45 [facility] Comment on above: Performed By: #### C BCNO, BMP #### [place] [address] [place] Eosinophils/100 WBC (Bld) 2.7 % Normal . [facility] Comment on above: Performed By: #### C BCNO, BMP #### [place] [address] [place] Erythrocyte distribution width (RBC) [Ratio] 15.0 % High 12.0-14.8 [facility] Comment on above: Performed By: #### C BCNO, BMP #### [address] Hematocrit (Bld) [Volume fraction] 24.2 % Low 38.8-50.0 [facility] Comment on above: Performed By: #### C BCNO, BMP #### [facility] [address] [place] [address] [place] Hemoglobin (Bld) [Mass/Vol] 8.0 g/dL Low 13.0-17.0 [facility] Comment on above: Performed By: #### C BCNO, BMP #### [facility] [address] Lymphocytes (Bld) [#/Vol] 0.8 10*3/uL Low 1.00-4.8 [facility] Comment on above: Performed By: #### C BCNO, BMP #### [facility] [address] Lymphocytes/100 WBC (Bld) 11.4 % Normal . [facility] Comment on above: Performed By: #### C BCNO, BMP #### [address] MCH (RBC) [Entitic mass] 27.2 pg Low 27.5-35.2 [facility] Comment on above: Performed By: #### C BCNO, BMP #### [place] [address] [place] MCV (RBC) [Entitic vol] 82.0 fL Low 83.5-101 [facility] Comment on above: Performed By: #### C BCNO, BMP #### [address] Mean Corpuscular HGB Conc 33.1 g/dL Normal 32.5-35.6 [facility] Comment on above: Performed By: #### C BCNO, BMP #### [facility] [address] [place] [address] [place] Monocytes (Bld) [#/Vol] 0.7 10*3/uL Normal 0.0-0.8 [facility] Comment on above: Performed By: #### C BCNO, BMP #### [facility] [address] [place] [address] [place] Monocytes/100 WBC (Bld) 9.3 % Normal . [facility] Comment on above: Performed By: #### C BCNO, BMP #### [facility] [address] [place] [address] [place] Neutrophils (Bld) [#/Vol] 5.4 10*3/uL Normal 1.8-7.7 [facility] Comment on above: Performed By: #### C CASE, BMP #### [facility] [address] [place] [id number] [place] Neutrophils/100 WBC (Bld) 75.2 % Normal . [facility] Comment on above: Performed By: #### C CASE, BMP #### [facility] [address] NRBC% 0.1 /100{WBC} Normal 0-0.5 [facility] Comment on above: Performed By: #### C CASE, BMP #### [facility] [address] Platelet mean volume (Bld) [Entitic vol] 8.3 fL Normal 6.6-10.1 [facility] Comment on above: Performed By: #### C CASE, BMP #### [facility] [address] [place] [address] [place] Platelets (Bld) [#/Vol] 170 10*3/uL Normal 150-450 [facility] Comment on above: Performed By: #### C CASE, BMP #### [place] [address] [place] RBC (Bld) [#/Vol] 2.95 10*6/uL Low 3.90-5.60 [facility] Comment on above: Performed By: #### C CASE, BMP #### [facility] [address] [place] [address] [place] WBC (Bld) [#/Vol] 7.1 10*3/uL Normal 4.1-10.5 [facility] Comment on above: Performed By: #### C BCSHANTANU, BMP #### [place] [address] [place] Glucose Poct Glucometerson 0 05-24-2022 Commemt1 Glu2: Cleaned Meter Normal [facility] Comment on above: Result Comment: PERF ORMED BY: [address] [place] [id number] PATHOLOGIST INTERNAL MEDICINE PHYSICIAN SESAR VAUGHN M.D. Performed By: #### G LULS ####Point of Care testing, Glucose [Mass/Vol] 150 mg/dL Normal [facility] Comment on above: Result Comment: [place]ah[place] om Glucose Reference Range is dependent on time and content of last meal. Glucose of more than 200 mg/dL in a nonstressed, ambulatory subject supports the diagnosis of Diabetes Mellitus. Performed By: #### G LULS ####Point of Care testing, Glucose [Mass/Vol] 131 mg/dL Normal [facility] Comment on above: Result Comment: [place] om Glucose Reference Range is dependent on time and content of last meal. Glucose of more than 200 mg/dL in a nonstressed, ambulatory subject supports the diagnosis of Diabetes Mellitus. PERFORMED BY: [address] [place] [id number] PATHOLOGIST INTERNAL MEDICINE PHYSICIAN SESAR VAUGHN M.D. Performed By: #### G LULS ####Point of Care testing, Glucose [Mass/Vol] 147 mg/dL Normal [facility] Comment on above: Result Comment: [place] om Glucose Reference Range is dependent on time and content of last meal. Glucose of more than 200 mg/dL in a nonstressed, ambulatory subject supports the diagnosis of Diabetes Mellitus. PERFORMED BY: [address] [place] [place] [address] PATHOLOGIST INTERNAL MEDICINE PHYSICIAN SESAR VAUGHN M.D. Performed By: #### G LULS #### Point of Care testing , Glucose [Mass/Vol] 101 mg/dL Normal [facility] Comment on above: Result Comment: [place] om Glucose Reference Range is dependent on time and content of last meal. Glucose of more than 200 mg/dL in a nonstressed, ambulatory subject supports the diagnosis of Diabetes Mellitus. PERFORMED BY: [address] [place] [id number] PATHOLOGIST INTERNAL MEDICINE PHYSICIAN SESAR VAUGHN M.D. Performed By: #### G BERT ####Point of Care testing, Renal Function Panelon 05-24 Albumin [Mass/Vol] 1.6 g/dL Low 3.2-5.5 [facility] Comment on above: Performed By: #### C BCNO, BMP #### [facility] [address] Anion gap [Moles/Vol] 13.6 mmol/L Normal 6.0-15.0 [facility] Comment on above: Performed By: #### C BCNO, BMP #### [facility] [address] [address] Calcium [Mass/Vol] 7.5 mg/dL Low 8.2-10.2 [facility] Comment on above: Performed By: #### C BCNO, BMP #### [facility] [address] [place] [address] [place] Chloride [Moles/Vol] 104 mmol/L Normal 95-114 [facility] Comment on above: Performed By: #### C BCNO, BMP #### [facility] [address] [place] [address] [place] CO2 [Moles/Vol] 19.6 mmol/L Low 22.0-30.0 [facility] Comment on above: Performed By: #### C BCNO, BMP #### [facility] [address] [place] [address] [place] Creatinine [Mass/Vol] 4.62 mg/dL High 0.64-1.27 [facility] Comment on above: Performed By: #### C BCNO, BMP #### [facility] [address] [place] [address] [place] Creatinine Clr Calc Pharmacy 21.46 Normal [facility] Comment on above: Result Comment: PERF ORMED BY: [place] [address] PATHOLOGIST INTERNAL MEDICINE PHYSICIAN SESAR VAUGHN M.D. Performed By: #### C BCNO, BMP #### [facility] [address] [place] [address] [facility] Estimated GFR ( Wendy 16 [facility] Comment on above: Result Comment: GFR estimated reference range: According to KDOQI guidelines, <60 ml/min/1.73m2 is sufficient to diagnose a patient with chronic kidney disease. Performed By: #### C CASE, BMP #### [facility] [address] Estimated GFR (Non- Am 13 [facility] Comment on above: Performed By: #### C CASE, BMP #### [facility] [address] Glucose [Mass/Vol] 87 mg/dL Normal 70-100 [facility] Comment on above: Result Comment: [place] Glucose Reference Range is dependent on time and content of last meal. Glucose of more than 200 mg/dL in a nonstressed, ambulatory subject supports the diagnosis of Diabetes Mellitus. ADA recommended reference range Performed By: #### C CASE, BMP #### [facility] [address] Phosphate [Mass/Vol] 4.3 mg/dL Normal 2.5-4.6 [facility] Comment on above: Performed By: #### C CASE, BMP #### [facility] [address] Potassium [Moles/Vol] 4.2 mmol/L Normal 3.5-5.1 [facility] Comment on above: Performed By: #### C CASE, BMP #### [facility] [address] [place] [address] [place] Sodium [Moles/Vol] 133 mmol/L Low 136-146 [facility] Comment on above: Performed By: #### C CASE, BMP #### [facility] [address] [place] [address] [place] Urea nitrogen [Mass/Vol] 72 mg/dL High 9-23 [facility] Comment on above: Performed By: #### C CASE, BMP #### [facility] [address] [place] [address] [place] Vancomycin [Mass/volume] in Serum or PlasmaOrdered By: Salvador Alonso on 05-24-2022 Vancomycin [Mass/Vol] 18.0 ug/mL 5.0-20.0 [facility] Comment on above: Last dose: - Vancomycin,Randomon 05-25-19 23 Vancomycin,Random 18.0 ug/mL Normal 5.0-20.0 [facility] Comment on above: Order Comment: Date of last dose?: 20220522 Time of last dose?: 113 Result Comment: Last dose: - PERFORMED BY: [facility] [address] [place] [address] PATHOLOGIST INTERNAL MEDICINE PHYSICIAN SESAR VAUGHN M.D. Performed By: #### G LUEVANGELISTA #### Point of Care testing , Complete Blood Count Auto Di ffon 05-23-2022 Basophils (Bld) [#/Vol] 0.1 10*3/uL Normal 0.0-0.2 [facility] Comment on above: Result Comment: PERF ORMED BY: [facility] [address] [place] [address] PATHOLOGIST INTERNAL MEDICINE PHYSICIAN SESAR VAUGHN M.D. Performed By: #### C BCNO, BMP #### [facility] [address] [place] [address] Basophils/100 WBC (Bld) 1.5 % Normal . [facility] Comment on above: Performed By: #### C BCNO, BMP #### [facility] [address] [place] [address] [place] Eosinophils (Bld) [#/Vol] 0.2 10*3/uL Normal 0.0-0.45 [facility] Comment on above: Performed By: #### C BCNO, BMP #### [facility] [address] [place] [address] [place] Eosinophils/100 WBC (Bld) 2.2 % Normal . [facility] Comment on above: Performed By: #### C BCNO, BMP #### [address] Erythrocyte distribution width (RBC) [Ratio] 14.9 % High 12.0-14.8 [facility] Comment on above: Performed By: #### C BCNO, BMP #### [facility] [address] Hematocrit (Bld) [Volume fraction] 24.7 % Low 38.8-50.0 [facility] Comment on above: Performed By: #### C BCNO, BMP #### [facility] [address] Hemoglobin (Bld) [Mass/Vol] 8.3 g/dL Low 13.0-17.0 [facility] Comment on above: Performed By: #### C BCNO, BMP #### [facility] [address] Lymphocytes (Bld) [#/Vol] 0.8 10*3/uL Low 1.00-4.8 [facility] Comment on above: Performed By: #### C BCNO, BMP #### [address] Lymphocytes/100 WBC (Bld) 10.5 % Normal . [facility] Comment on above: Performed By: #### C BCNO, BMP #### [facility] [address] MCH (RBC) [Entitic mass] 27.5 pg Normal 27.5-35.2 [facility] Comment on above: Performed By: #### C BCNO, BMP #### [address] MCV (RBC) [Entitic vol] 81.5 fL Low 83.5-101 [facility] Comment on above: Performed By: #### C BCNO, BMP #### [facility] [address] Mean Corpuscular HGB Conc 33.7 g/dL Normal 32.5-35.6 [facility] Comment on above: Performed By: #### C BCNO, BMP #### [address] Monocytes (Bld) [#/Vol] 0.7 10*3/uL Normal 0.0-0.8 [facility] Comment on above: Performed By: #### C BCNO, BMP #### [facility] [address] [place] [address] [place] Monocytes/100 WBC (Bld) 10.0 % Normal . [facility] Comment on above: Performed By: #### C BCNO, BMP #### [facility] [address] [place] [address] [place] Neutrophils (Bld) [#/Vol] 5.6 10*3/uL Normal 1.8-7.7 [facility] Comment on above: Performed By: #### C BCNO, BMP #### [facility] [address] [place] [address] [place] Neutrophils/100 WBC (Bld) 75.8 % Normal . [facility] Comment on above: Performed By: #### C BCNO, BMP #### [facility] [address] NRBC% 0.1 /100{WBC} Normal 0-0.5 [facility] Comment on above: Performed By: #### C BCNO, BMP #### [facility] [address] [place] [address] [place] Platelet mean volume (Bld) [Entitic vol] 8.8 fL Normal 6.6-10.1 [facility] Comment on above: Performed By: #### C BCNO, BMP #### [facility] [address] [place] [address] [place] Platelets (Bld) [#/Vol] 171 10*3/uL Normal 150-450 [facility] Comment on above: Performed By: #### C BCNO, BMP #### [facility] [address] [place] [address] [place] RBC (Bld) [#/Vol] 3.03 10*6/uL Low 3.90-5.60 [facility] Comment on above: Performed By: #### C BCNO, BMP #### [facility] [address] [place] [address] [place] WBC (Bld) [#/Vol] 7.4 10*3/uL Normal 4.1-10.5 [facility] Comment on above: Performed By: #### C ESTHER WILLOUGHBY #### [facility] [address] Glucose Poct Glucometerson 0 05-23-2022 Glucose [Mass/Vol] 125 mg/dL Normal [facility] Comment on above: Result Comment: [facility] Glucose Reference Range is dependent on time and content of last meal. Glucose of more than 200 mg/dL in a nonstressed, ambulatory subject supports the diagnosis of Diabetes Mellitus. PERFORMED BY: [place] [address] PATHOLOGIST INTERNAL MEDICINE PHYSICIAN SESAR VAUGHN M.D. Performed By: #### G BERT ####Point of Care testing, Glucose [Mass/Vol] 129 mg/dL Normal [facility] Comment on above: Result Comment: [facility] Glucose Reference Range is dependent on time and content of last meal. Glucose of more than 200 mg/dL in a nonstressed, ambulatory subject supports the diagnosis of Diabetes Mellitus. PERFORMED BY: [place] [address] PATHOLOGIST INTERNAL MEDICINE PHYSICIAN SESAR VAUGHN M.D. Performed By: #### G BERT ####Point of Care testing, Glucose [Mass/Vol] 164 mg/dL Normal [facility] Comment on above: Result Comment: [facility] Glucose Reference Range is dependent on time and content of last meal. Glucose of more than 200 mg/dL in a nonstressed, ambulatory subject supports the diagnosis of Diabetes Mellitus. PERFORMED BY: [place] [address] PATHOLOGIST INTERNAL MEDICINE PHYSICIAN SESAR VAUGHN M.D. Performed By: #### C RP #### [facility] [address] [place] [address] Renal Function Panelon 05-23 Albumin [Mass/Vol] 1.7 g/dL Low 3.2-5.5 [facility] Comment on above: Performed By: #### C CASE, BMP #### [facility] [address] Anion gap [Moles/Vol] 13.0 mmol/L Normal 6.0-15.0 [facility] Comment on above: Performed By: #### C BCNO, BMP #### [facility] [address] Calcium [Mass/Vol] 7.5 mg/dL Low 8.2-10.2 [facility] Comment on above: Performed By: #### C BCNO, BMP #### [facility] [address] Chloride [Moles/Vol] 103 mmol/L Normal 95-114 [facility] Comment on above: Performed By: #### C BCSHANTANU, BMP #### [address] CO2 [Moles/Vol] 20.1 mmol/L Low 22.0-30.0 [facility] Comment on above: Performed By: #### C BCSHANTANU, BMP #### [address] Creatinine [Mass/Vol] 4.57 mg/dL High 0.64-1.27 [facility] Comment on above: Performed By: #### C BCSHANTANU, BMP #### [place] [address] [place] Creatinine Clr Calc Pharmacy 21.49 [facility] Comment on above: Result Comment: PERF ORMED BY: [place] [address] PATHOLOGIST INTERNAL MEDICINE PHYSICIAN SESAR VAUGHN M.D. Performed By: #### C BCSHANTANU, BMP #### [address] Estimated GFR ( Wendy 16 [facility] Comment on above: Result Comment: GFR estimated reference range: According to KDOQI guidelines, <60 ml/min/1.73m2 is sufficient to diagnose a patient with chronic kidney disease. Performed By: #### C BCNO, BMP #### [address] [place] [address] [place] Estimated GFR (Non- Am 13 Normal [facility] Comment on above: Performed By: #### C CASE, BMP #### [facility] [address] Glucose [Mass/Vol] 93 mg/dL Normal 70-100 [facility] Comment on above: Result Comment: [facility] Glucose Reference Range is dependent on time and content of last meal. Glucose of more than 200 mg/dL in a nonstressed, ambulatory subject supports the diagnosis of Diabetes Mellitus. ADA recommended reference range Performed By: #### C CASE, BMP #### [facility] [address] Phosphate [Mass/Vol] 4.6 mg/dL Normal 2.5-4.6 [facility] Comment on above: Performed By: #### C CASE, BMP #### [facility] [address] Potassium [Moles/Vol] 4.1 mmol/L Normal 3.5-5.1 [facility] Comment on above: Performed By: #### C CASE, BMP #### [address] Sodium [Moles/Vol] 132 mmol/L Low 136-146 [facility] Comment on above: Performed By: #### C CASE, BMP #### [facility] [address] [place] [address] [place] Urea nitrogen [Mass/Vol] 69 mg/dL High 9-23 [facility] Comment on above: Performed By: #### C CASE, BMP #### [facility] [address] Complete Blood Count Auto Di ffon 05-22-2022 Basophils (Bld) [#/Vol] 0.1 10*3/uL Normal 0.0-0.2 [facility] Comment on above: Result Comment: PERF ORMED BY: [place] [address] PATHOLOGIST INTERNAL MEDICINE PHYSICIAN SESAR VAUGHN M.D. Performed By: #### R ENAL, CBC #### [facility] [address] [place] [id number] [place] Basophils/100 WBC (Bld) 0.6 % Normal . [facility] Comment on above: Performed By: #### R ENAL, CBC #### [facility] [address] [place] [id number] [place] Eosinophils (Bld) [#/Vol] 0.1 10*3/uL Normal 0.0-0.45 [facility] Comment on above: Performed By: #### R ENAL, CBC #### [facility] [address] [place] [address] [place] Eosinophils/100 WBC (Bld) 0.8 % Normal . [facility] Comment on above: Performed By: #### R ENAL, CBC #### [facility] [address] Erythrocyte distribution width (RBC) [Ratio] 15.4 % High 12.0-14.8 [facility] Comment on above: Performed By: #### R ENAL, CBC #### [facility] [address] [place] [address] [place] Hematocrit (Bld) [Volume fraction] 25.9 % Low 38.8-50.0 [facility] Comment on above: Performed By: #### R ENAL, CBC #### [facility] [address] [place] [id number] [place] Hemoglobin (Bld) [Mass/Vol] 8.6 g/dL Low 13.0-17.0 [facility] Comment on above: Performed By: #### R ENAL, CBC #### [facility] [address] [place] [id number] [place] Lymphocytes (Bld) [#/Vol] 0.6 10*3/uL Low 1.00-4.8 [facility] Comment on above: Performed By: #### R ENAL, CBC #### [facility] [address] [place] [id number] [place] Lymphocytes/100 WBC (Bld) 7.4 % Normal . [facility] Comment on above: Performed By: #### R ENAL, CBC #### [facility] [address] MCH (RBC) [Entitic mass] 27.3 pg Low 27.5-35.2 [facility] Comment on above: Performed By: #### R ENAL, CBC #### [facility] [address] MCV (RBC) [Entitic vol] 81.7 fL Low 83.5-101 [facility] Comment on above: Performed By: #### R ENAL, CBC #### [facility] [address] Mean Corpuscular HGB Conc 33.4 g/dL Normal 32.5-35.6 [facility] Comment on above: Performed By: #### R ENAL, CBC #### [address] Monocytes (Bld) [#/Vol] 0.7 10*3/uL Normal 0.0-0.8 [facility] Comment on above: Performed By: #### R ENAL, CBC #### [facility] [address] [place] [address] [place] Monocytes/100 WBC (Bld) 7.6 % Normal . [facility] Comment on above: Performed By: #### R ENAL, CBC #### [facility] [address] [place] [address] [place] Neutrophils (Bld) [#/Vol] 7.3 10*3/uL Normal 1.8-7.7 [facility] Comment on above: Performed By: #### R ENAL, CBC #### [facility] [address] [place] [address] [place] Neutrophils/100 WBC (Bld) 83.6 % Normal . [facility] Comment on above: Performed By: #### R ENAL, CBC #### [place] [address] [place] NRBC% 0.0 /100{WBC} Normal 0-0.5 [facility] Comment on above: Performed By: #### R ENAL, CBC #### [facility] [address] Platelet mean volume (Bld) [Entitic vol] 9.3 fL Normal 6.6-10.1 [facility] Comment on above: Performed By: #### R ENAL, CBC #### [facility] [address] Platelets (Bld) [#/Vol] 174 10*3/uL Normal 150-450 [facility] Comment on above: Performed By: #### R ENAL, CBC #### [facility] [address] RBC (Bld) [#/Vol] 3.17 10*6/uL Low 3.90-5.60 [facility] Comment on above: Performed By: #### R ENAL, CBC #### [facility] [address] WBC (Bld) [#/Vol] 8.7 10*3/uL Normal 4.1-10.5 [facility] Comment on above: Performed By: #### R ENAL, CBC #### [address] Glucose Poct Glucometerson 0 05-22-2022 Glucose [Mass/Vol] 157 mg/dL Normal [facility] Comment on above: Result Comment: [facility] Glucose Reference Range is dependent on time and content of last meal. Glucose of more than 200 mg/dL in a nonstressed, ambulatory subject supports the diagnosis of Diabetes Mellitus. PERFORMED BY: [place] [address] PATHOLOGIST INTERNAL MEDICINE PHYSICIAN SESAR VAUGHN M.D. Performed By: #### C RP #### [address] Glucose [Mass/Vol] 164 mg/dL Normal [facility] Comment on above: Result Comment: [facility] Glucose Reference Range is dependent on time and content of last meal. Glucose of more than 200 mg/dL in a nonstressed, ambulatory subject supports the diagnosis of Diabetes Mellitus. PERFORMED BY: [place] [address] PATHOLOGIST INTERNAL MEDICINE PHYSICIAN SESAR VAUGHN M.D. Performed By: #### G LULS #### Point of Care testing , Glucose [Mass/Vol] 126 mg/dL Normal [facility] Comment on above: Result Comment: [place] Glucose Reference Range is dependent on time and content of last meal. Glucose of more than 200 mg/dL in a nonstressed, ambulatory subject supports the diagnosis of Diabetes Mellitus. PERFORMED BY: [place] [address] PATHOLOGIST INTERNAL MEDICINE PHYSICIAN SESAR VAUGHN M.D. Performed By: #### C BCNO, BMP #### [address] Commemt1 Glu2: Cleaned Meter Normal [facility] Comment on above: Result Comment: PERF ORMED BY: [place] [address] PATHOLOGIST INTERNAL MEDICINE PHYSICIAN SESAR VAUGHN M.D. Performed By: #### G LULS #### Point of Care testing , Glucose [Mass/Vol] 84 mg/dL Normal [facility] Comment on above: Result Comment: [place] Glucose Reference Range is dependent on time and content of last meal. Glucose of more than 200 mg/dL in a nonstressed, ambulatory subject supports the diagnosis of Diabetes Mellitus. Performed By: #### G LULS #### Point of Care testing , Renal Function Panelon 05-22 Albumin [Mass/Vol] 1.7 g/dL Low 3.2-5.5 [facility] Comment on above: Performed By: #### R ENAL, CBC #### [address] Anion gap [Moles/Vol] 12.4 mmol/L Normal 6.0-15.0 [facility] Comment on above: Performed By: #### R ENAL, CBC #### [place] [id number] [place] Calcium [Mass/Vol] 7.5 mg/dL Low 8.2-10.2 [facility] Comment on above: Performed By: #### R ENAL, CBC #### [address] Chloride [Moles/Vol] 103 mmol/L Normal 95-114 [facility] Comment on above: Performed By: #### R ENAL, CBC #### [address] CO2 [Moles/Vol] 19.9 mmol/L Low 22.0-30.0 [facility] Comment on above: Performed By: #### R ENAL, CBC #### [address] Creatinine [Mass/Vol] 4.75 mg/dL High 0.64-1.27 [facility] Comment on above: Performed By: #### R ENAL, CBC #### [address] Creatinine Clr Calc Pharmacy 20.48 [facility] Comment on above: Result Comment: PERF ORMED BY: [place] [address] PATHOLOGIST INTERNAL MEDICINE PHYSICIAN SESAR VAUGHN M.D. Performed By: #### R LYNETTE, CBC #### [address] Estimated GFR ( Wendy 15 [facility] Comment on above: Result Comment: GFR estimated reference range: According to KDOQI guidelines, <60 ml/min/1.73m2 is sufficient to diagnose a patient with chronic kidney disease. Performed By: #### R ENAL, CBC #### [address] Estimated GFR (Non- Am 13 [facility] Comment on above: Performed By: #### R ENAL, CBC #### [address] Glucose [Mass/Vol] 78 mg/dL Normal 70-100 [facility] Comment on above: Result Comment: [place] Glucose Reference Range is dependent on time and content of last meal. Glucose of more than 200 mg/dL in a nonstressed, ambulatory subject supports the diagnosis of Diabetes Mellitus. ADA recommended reference range Performed By: #### R ENAL, CBC #### [facility] [address] Phosphate [Mass/Vol] 4.5 mg/dL Normal 2.5-4.6 [facility] Comment on above: Performed By: #### R ENAL, CBC #### [facility] [address] Potassium [Moles/Vol] 4.3 mmol/L Normal 3.5-5.1 [facility] Comment on above: Performed By: #### R ENAL, CBC #### [facility] [address] Sodium [Moles/Vol] 131 mmol/L Low 136-146 [facility] Comment on above: Performed By: #### R ENAL, CBC #### [facility] [address] [place] [id number] [place] Urea nitrogen [Mass/Vol] 69 mg/dL High 9-23 [facility] Comment on above: Performed By: #### R ENAL, CBC #### [facility] [address] [place] [address] [place] Vancomycin,Randomon 05-23-19 23 Vancomycin,Random 12.1 ug/mL Normal 5.0-20.0 [facility] Comment on above: Order Comment: Date of last dose?: 20220520 Time of last dose?: 1700 Result Comment: Last dose: - PERFORMED BY: [place] [address] PATHOLOGIST INTERNAL MEDICINE PHYSICIAN SESAR VAUGHN M.D. Performed By: #### C RP #### [facility] [address] [place] [address] [place] ABO/Rh Retypeon 05-21-2022 ABO/RH Recheck Result Positive Normal [facility] Comment on above: Result Comment: PERF ORMED BY: [address] [place] [address] PATHOLOGIST INTERNAL MEDICINE PHYSICIAN SESAR VAUGHN M.D. Aerobic Cultureon 05-21-2022 Aerobic Culture No Growth 2 Days ORGANISM: Bacteroides fragilis (O:BACFRA) Comments Sent to [facility] for Sensitivity Testing Quantity of Growth Light Growth See report. Scanned copy available in EMR. Gram Stain Result Rare Gram Negative Bacilli Rare White Blood Cells PERFORMED BY: [address] [place] [address] PATHOLOGIST INTERNAL MEDICINE PHYSICIAN SESAR VAUGHN M.D. Normal [facility] Comment on above: Performed By: #### G BERT #### Point of Care testing , Aerobic cultureOrdered By: Hortencia Luis on 05-21-2022 Bacteria identified Aer cx Nom (Unsp spec) No Growth 2 Days [facility] Bacteria identified Aer cx Nom (Unsp spec) No Growth 2 Days [facility] Bacteria identified Anaer cx Nom (Unsp spec)Ordered By: PHILLIP Luis on 05-21-2022 Anaerobic Culture Bacteroides fragilis [facility] Bacterial susceptibility melo el MARCELO (Isol)on 05-21-2022 Microorganism identified Cx Nom (Unsp spec) [id number] Abnormal [facility] Comment on above: Order Comment: Speci men Type: MICROBIAL ISOLATEOrdering Facility: [facility] Address: [address] [place], [place] [id number] Result Comment: Bact eroides fragilis Identification performed by client. Bacteroides spp. are intrinsically resistant to ampicillin, penicillin, and aminoglycosides. Performed By: #### 5 0545-3, 79000-1 ####[facility] LABCLIA [id number] [facility] [id number] [place], [place] [id number] [place] Bacterial susceptibility melo el Strip (Isol)on 05-21-2022 Ampicillin+Sulbactam [Susc] 8 Susceptible Susceptible <=8 , Intermediate >8 , Resistant >16 [facility] Comment on above: Order Comment: Order ing Facility: [facility] Address: [address] [place] [phone] Performed By: #### 5 0545-3, 71673-8 ####[facility] LABCLIA [id number] [address] [place] Ertapenem MARCELO [Susc] 2 Susceptible Suscept ible <=4 , Intermediate >4 , Resistant >8 [facility] Comment on above: Order Comment: Order ing Facility: [facility] Address: [address] [place] [address] Performed By: #### 5 0545-3, 72004-8 ####[facility] LABCLIA [id number] [address] [place] metroNIDAZOLE [Susc] 0.064 Susceptible Suscept ible <=8 , Intermediate >8 , Resistant >16 [facility] Comment on above: Order Comment: Order ing Facility: [facility] Address: [address] [place] [address] Performed By: #### 5 0545-3, 00046-3 ####[facility] LABCLIA [id number] [place] [address] [place] biopsyOrdered By: Cristobal bauer on 05-21-2022 Transferrin [Mass/Vol] 74 mg/dL 180-380 [facility] Complete Blood Count Auto Di ffon 05-21-2022 Basophils (Bld) [#/Vol] 0.0 10*3/uL Normal 0.0-0.2 [facility] Comment on above: Result Comment: PERF ORMED BY: [place] [address] PATHOLOGIST INTERNAL MEDICINE PHYSICIAN SESAR VAUGHN M.D. Performed By: #### C BCNO, BMP #### [facility] [address] [place] [address] Basophils/100 WBC (Bld) 0.4 % Normal . [facility] Comment on above: Performed By: #### C BCNO, BMP #### [address] Eosinophils (Bld) [#/Vol] 0.1 10*3/uL Normal 0.0-0.45 [facility] Comment on above: Performed By: #### C CASE, BMP #### [address] Eosinophils/100 WBC (Bld) 0.8 % Normal . [facility] Comment on above: Performed By: #### C CASE, BMP #### [address] Erythrocyte distribution width (RBC) [Ratio] 15.1 % High 12.0-14.8 [facility] Comment on above: Performed By: #### C CASE, BMP #### [address] Hematocrit (Bld) [Volume fraction] 23.5 % Low 38.8-50.0 [facility] Comment on above: Performed By: #### C CASE, BMP #### [address] Hemoglobin (Bld) [Mass/Vol] 7.7 g/dL Low 13.0-17.0 [facility] Comment on above: Performed By: #### C CASE, BMP #### [address] Lymphocytes (Bld) [#/Vol] 0.5 10*3/uL Low 1.00-4.8 [facility] Comment on above: Performed By: #### C CASE, BMP #### [address] Lymphocytes/100 WBC (Bld) 6.7 % Normal . [facility] Comment on above: Performed By: #### C CASE, BMP #### [address] MCH (RBC) [Entitic mass] 26.8 pg Low 27.5-35.2 [facility] Comment on above: Performed By: #### C CASE, BMP #### [place] [address] [place] MCV (RBC) [Entitic vol] 81.6 fL Low 83.5-101 [facility] Comment on above: Performed By: #### C CASE, BMP #### [facility] [address] Mean Corpuscular HGB Conc 32.8 g/dL Normal 32.5-35.6 [facility] Comment on above: Performed By: #### C CASE, BMP #### [facility] [address] Monocytes (Bld) [#/Vol] 0.8 10*3/uL Normal 0.0-0.8 [facility] Comment on above: Performed By: #### C CASE, BMP #### [facility] [address] Monocytes/100 WBC (Bld) 11.5 % Normal . [facility] Comment on above: Performed By: #### C CASE, BMP #### [facility] [address] Neutrophils (Bld) [#/Vol] 5.6 10*3/uL Normal 1.8-7.7 [facility] Comment on above: Performed By: #### C CASE, BMP #### [address] Neutrophils/100 WBC (Bld) 80.6 % Normal . [facility] Comment on above: Performed By: #### C CASE, BMP #### [facility] [address] NRBC% 0.1 /100{WBC} Normal 0-0.5 [facility] Comment on above: Performed By: #### C CASE, BMP #### [facility] [address] Platelet mean volume (Bld) [Entitic vol] 9.4 fL Normal 6.6-10.1 [facility] Comment on above: Performed By: #### C CASE, BMP #### [facility] [address] Platelets (Bld) [#/Vol] 157 10*3/uL Normal 150-450 [facility] Comment on above: Performed By: #### C CASE, BMP #### [facility] [address] RBC (Bld) [#/Vol] 2.88 10*6/uL Low 3.90-5.60 [facility] Comment on above: Performed By: #### C CASE, BMP #### [facility] [address] WBC (Bld) [#/Vol] 7.0 10*3/uL Normal 4.1-10.5 [facility] Comment on above: Performed By: #### C CASE, BMP #### [address] Ferritinon 05-21-2022 Ferritin [Mass/Vol] 757.4 ng/mL High 23.9-336.2 [facility] Comment on above: Result Comment: PERF ORMED BY: [place] [address] PATHOLOGIST INTERNAL MEDICINE PHYSICIAN SESAR VAUGHN M.D. Performed By: #### F ER, FE and TIBC ####[facility] Ferritin [Mass/volume] in Se rum or PlasmaOrdered By: Cristobal Butts on 05-21-2022 Ferritin [Mass/Vol] 757.4 ng/mL 23.9-336.2 [facility] Glucose Poct Glucometerson 0 05-21-2022 Commemt1 Glu2: Cleaned Meter Normal [facility] Comment on above: Result Comment: PERF ORMED BY: [place] [address] PATHOLOGIST INTERNAL MEDICINE PHYSICIAN SESAR VAUGHN M.D. Performed By: #### C RP #### [address] Glucose [Mass/Vol] 77 mg/dL Normal [facility] Comment on above: Result Comment: Nahma om Glucose Reference Range is dependent on time and content of last meal. Glucose of more than 200 mg/dL in a nonstressed, ambulatory subject supports the diagnosis of Diabetes Mellitus. Performed By: #### C RP #### [facility] [address] Glucose [Mass/Vol] 80 mg/dL Normal [facility] Comment on above: Result Comment: [place]ahma om Glucose Reference Range is dependent on time and content of last meal. Glucose of more than 200 mg/dL in a nonstressed, ambulatory subject supports the diagnosis of Diabetes Mellitus. PERFORMED BY: [place] [address] PATHOLOGIST INTERNAL MEDICINE PHYSICIAN SESAR VAUGHN M.D. Performed By: #### C MANNYNO, BMP #### [address] Glucose [Mass/Vol] 192 mg/dL Normal [facility] Comment on above: Result Comment: [place]ma om Glucose Reference Range is dependent on time and content of last meal. Glucose of more than 200 mg/dL in a nonstressed, ambulatory subject supports the diagnosis of Diabetes Mellitus. PERFORMED BY: [place] [address] PATHOLOGIST INTERNAL MEDICINE PHYSICIAN SESAR VAUGHN M.D. Performed By: #### C BCNO, BMP #### [place] [address] [place] Glucose [Mass/Vol] 96 mg/dL Normal [facility] Comment on above: Result Comment: Nahma om Glucose Reference Range is dependent on time and content of last meal. Glucose of more than 200 mg/dL in a nonstressed, ambulatory subject supports the diagnosis of Diabetes Mellitus. PERFORMED BY: [place] [address] PATHOLOGIST INTERNAL MEDICINE PHYSICIAN SESAR VAUGHN M.D. Performed By: #### C RP #### [address] Gram stain for investigation of transfusion reactionOrdered By: PHILLIP Luis on 05-21-2022 Microscopic observation Gram stain Nom (Unsp spec) [facility] Microscopic observation Gram stain Nom (Unsp spec) [facility] Iron [Mass/volume] in Serum or PlasmaOrdered By: Cristobal Butts on 05-21-2022 Iron [Mass/Vol] 20 ug/dL 40-160 [facility] Iron and TIBC Profileon 03- % Iron Saturation 19.2 % Low 20-50 [facility] Comment on above: Performed By: #### F ER, FE and TIBC ####[facility] [id number] [place], [place] [address] Iron [Mass/Vol] 20 ug/dL Low 40-160 [facility] Comment on above: Performed By: #### F ER, FE and TIBC ####[facility] [id number] [place] [address] [facility] Total Iron Binding Capacity 104 ug/dL Low 255-450 [facility] Comment on above: Performed By: #### F ER, FE and TIBC ####[facility] [id number] [place] [id number] [facility] Transferrin [Mass/Vol] 74 mg/dL Low 180-380 [facility] Comment on above: Performed By: #### F ER, FE and TIBC ####[facility] [address] Iron binding capacity [Mass/ volume] in Serum or PlasmaOrdered By: Cristobal Butts on 05-21-2022 Iron binding capacity [Mass/Vol] 104 ug/dL 255-450 [facility] Iron saturation [Mass Fracti on] in Serum or PlasmaOrdered By: Cristobal Butts on 05-21-2022 Iron saturation [Mass fraction] 19.2 % 20-50 [facility] Stewart 05-21-2022 L --- Specimen: [id number] Received: 05/22/22 Status: ANSELMO Cannonbruce Num: [id number] Spec Type: Surgical Subm Dr: Primo Luis,HARRY, MS, CWS Tissues: A DIGIT AMPUTATION (4TH RT TOE) Procedures: HE/2, Gross/Micro L4, Decalcification Age/ Patient Sex Location Account Attending Physician Gopal Yates Jr/[facility] [id number] Scotty Kahn DO SPEC NUM: [id number] RECD: 05/22/22 STATUS: ANSELMO CANNONBruce NUM: [id number] NATY: 05/21/22 [facility] DR: Primo Luis,HARRY, MS, CWS ENTERED: 05/22/[address]: SPEC TYPE: Surgical DEPT: S ORDERED: HE/2, Gross/Micro L4, Decalcification ORDERED: HE2, Gross/Micro L4, Decalcification Pathological Diagnosis Right foot, fourth toe, amputation: - Acute gangrenous ulcer, acute osteomyelitis and fat necrosis, medial aspect of the distal toe. - Fat necrosis and acute inflammation are present at the soft tissue margin. Clinical Information Open wounds Gross Description Received in formalin labeled with the patient's name, number and Right fourth toe is a 4.8 x 2.5 x 2.0 cm distal digit consistent with toe. There is an overlying 1.0 x 1.0 x 0.3 cm obregon-white toenail. There is a 0.7 x 0.3 cm brown crusted lesion along the medial aspect of the distal toe. The remaining skin is obregon white, focally hyperemic. The resection margin is inked and the underlying bone is obregon, trabecular.. Taxicab Driver are submitted following decalcification in two cassettes labeled A1-A2. Microscopic Description Two glass slides with H E stained material have been examined. The microscopic findings support the above pathologic diagnosis. Specimen: [id number] Received: 05/22/22 Status: ANSELMO Varela Num: [id number] Spec Type: Surgical Subm Dr: Primo Luis,DPM, MS, CWS Tissues: A DIGIT AMPUTATION (4TH RT TOE) Procedures: HE2, Gross/Micro L4, Decalcification Patient: Gopal Yates Jr [id number] (Continued) Specimen: [id number] Received: 05/22/22 (Continued) Signed (signature on file) Dee Nogueria MD 05/25/22 1200 Specimen: [id number] Received: 05/22/22 Status: ANSELMO Nichole Num: [id number] Spec Type: Surgical Subm Dr: Primo Luis,ITALIAM, MS, CWS Tissues: A DIGIT AMPUTATION (4TH RT TOE) Procedures: HE/2, Gross/Micro L4, Decalcification Patient: Gopal Yates Jr [id number] (Continued) Specimen: [id number] Received: 05/22/22 (Continued) CPT Codes 40650, 09863 Specimen: [id number] Received: 05/22/22 Status: ANSELMO Varela Num: [id number] Spec Type: Surgical Subm Dr: Primo Luis,HARRY, MS, CWS Tissues: A DIGIT AMPUTATION (4TH RT TOE) Procedures: HE/2, Gross/Micro L4, Decalcification Patient: Gopal Yates Jr [id number] (Continued) Signed (signature on file) Dee Nogueira MD 05/25/22 1200 [facility] LeukoReduced RBCon LeukoReduced RBC TRANSFUSED 05/21/22 1251 [facility] MR foot RT wo conon 05-22-19 MR foot RT wo con [facility] [address] MRI Report Signed Patient: Gopal Yates Jr MR#: [id number] : 1965 Acct:[id number] Age/Sex: 56 / M ADM Date: 05/20/22 Loc: Room: [address] [place] [address] Type: ADM IN Attending Dr: Salvador Alonso MD Copies to: MD Primo Boles DPM, MS, CWS Ordering Provider: Primo Luis DPM, MS, CWS Date of Service: 05/20/22 MR/MR foot RT wo con: abscess, ro osteo MR foot RT wo con 05/20/2022 7:36 PM SIGNS AND SYMPTOMS: Ulcer/wound over the lateral aspect of the right foot with suggestion of osteomyelitis in the second metatarsal on prior radiographs, follow-up PROTOCOL: Multiplanar multisequence MR images of the right foot were obtained without IV contrast COMPARISON: 05/20/2022 FINDINGS: Lisfranc ligament: Intact. Hallux: Osseous: Normal. Extensor tendon: Normal. Flexor tendon: Normal. First metatarsophalangeal joint: Mild to moderate degenerative changes are noted at the first metatarsophalangeal junction with mild subchondral cystic change.. Hallux-sesamoid complex: Normal. Second ray: Osseous: Normal. Extensor tendon: Normal. Flexor tendon: Normal. Second metatarsophalangeal joint: Normal. Plantar plate: Normal. Third ray: Osseous: There is marrow edema affecting the head of the third metatarsal as well as the proximal phalanx of the third digit suspicious for osteomyelitis. Extensor tendon: Normal. Flexor tendon: Normal. Third metatarsophalangeal joint: Preserved. Plantar plate: Normal. Fourth ray: Osseous: There is edema in the head of the second metatarsal as well as the proximal and middle phalanx of the fourth digit suspicious for osteomyelitis. Edema is also noted at the fourth tarsometatarsal junction suspicious for osteomyelitis. Extensor tendon: Normal. Flexor tendon: Normal. Fourth metatarsophalangeal joint: . Plantar plate: Normal. Fifth ray: Osseous: There has been prior amputation. Interspaces: Interdigital (Oneil) neuroma: None. Intermetatarsal bursitis: None. Soft tissues: There is evidence of ulceration along the lateral soft tissues of the right foot with subcutaneous emphysema. There is also a fluid collection along the interspace between the heads of the third and fourth metatarsals suspicious for abscess formation. There is diffuse soft tissue swelling consistent with cellulitis. Muscles: There is edema throughout the intrinsic musculature suggesting myositis. Bones: Normal. Nerves: Normal. Blood vessels: Normal. MR/MR foot RT wo con IMPRESSION: There is edema in the head of the second metatarsal as well as the proximal and middle phalanx of the fourth digit suspicious for osteomyelitis. Edema is also noted at the fourth tarsometatarsal junction suspicious for osteomyelitis. There is marrow edema affecting the head of the third metatarsal as well as the proximal phalanx of the third digit suspicious for osteomyelitis. There is evidence of ulceration along the lateral soft tissues of the right foot with subcutaneous emphysema. There is also a fluid collection along the interspace between the heads of the third and fourth metatarsals suspicious for abscess formation. There is diffuse soft tissue swelling consistent with cellulitis. There is edema throughout the intrinsic musculature suggesting myositis. Impression dictated by: Flynn Bradley M.D.05/21/2022 10:03 AM Dictation Location: [place] [address] Transcribed By: [facility] 05/21/22 1003 Dictated By: Flynn Bradley II, MD 05/21/22 0954 Signed By: 05/21/22 1003 Normal [facility] Renal Function Panelon 05-21 Albumin [Mass/Vol] 1.7 g/dL Low 3.2-5.5 [facility] Comment on above: Performed By: #### C RP #### [address] Anion gap [Moles/Vol] 13.3 mmol/L Normal 6.0-15.0 [facility] Comment on above: Performed By: #### C RP #### [facility] [address] Calcium [Mass/Vol] 7.5 mg/dL Low 8.2-10.2 [facility] Comment on above: Performed By: #### C RP #### [facility] [address] Chloride [Moles/Vol] 102 mmol/L Normal 95-114 [facility] Comment on above: Performed By: #### C RP #### [facility] [address] CO2 [Moles/Vol] 19.7 mmol/L Low 22.0-30.0 [facility] Comment on above: Performed By: #### C RP #### [address] Creatinine [Mass/Vol] 5.24 mg/dL High 0.64-1.27 [facility] Comment on above: Performed By: #### C RP #### [address] Creatinine Clr Calc Pharmacy 18.57 [facility] Comment on above: Result Comment: PERF ORMED BY: [place] [address] PATHOLOGIST INTERNAL MEDICINE PHYSICIAN SESAR VAUGHN M.D. Performed By: #### C RP #### [address] Estimated GFR ( Wendy 14 [facility] Comment on above: Result Comment: GFR estimated reference range: According to KDOQI guidelines, <60 ml/min/1.73m2 is sufficient to diagnose a patient with chronic kidney disease. Performed By: #### C RP #### [address] Estimated GFR (Non- Am 11 [facility] Comment on above: Performed By: #### C RP #### [address] [place] [address] [place] Glucose [Mass/Vol] 86 mg/dL Normal 70-100 [facility] Comment on above: Result Comment: Nahma Glucose Reference Range is dependent on time and content of last meal. Glucose of more than 200 mg/dL in a nonstressed, ambulatory subject supports the diagnosis of Diabetes Mellitus. ADA recommended reference range Performed By: #### C RP #### [facility] [address] Phosphate [Mass/Vol] 5.3 mg/dL High 2.5-4.6 [facility] Comment on above: Performed By: #### C RP #### [facility] [address] Potassium [Moles/Vol] 4.0 mmol/L Normal 3.5-5.1 [facility] Comment on above: Performed By: #### C RP #### [facility] [address] Sodium [Moles/Vol] 131 mmol/L Low 136-146 [facility] Comment on above: Performed By: #### C RP #### [facility] [address] Urea nitrogen [Mass/Vol] 72 mg/dL High 9-23 [facility] Comment on above: Performed By: #### C RP #### [facility] [address] [place] [address] [place] Type and Screenon 05-21-2022 ABO and Rh group Nom (Bld) Blood group A Rh(D) positive Normal [facility] Comment on above: Order Comment: Trans fuse now? Y Number of units to transfuse now? 1 Result Comment: PERF ORMED BY: [place] [address] PATHOLOGIST INTERNAL MEDICINE PHYSICIAN SESAR VAUGHN M.D. Activated partial thrombopla stin time (aPTT) in platelet poor plasma by coagulation aOrdered By: Gopal Larsen on 05-20-2022 aPTT Coag (PPP) [Time] 30.7 s 25.1-36.5 [facility] Albumin [Mass/volume] in Ser um or PlasmaOrdered By: Gopal Larsen on 05-20-2022 Albumin [Mass/Vol] 1.8 g/dL 3.2-5.5 [facility] Alkaline phosphatase [Enzyma tic activity/volume] in Serum or PlasmaOrdered By: Gopal Larsen on 05-20-2022 ALP [Catalytic activity/Vol] 169 U/L 32-92 [facility] Aspartate aminotransferase [ Enzymatic activity/volume] in Serum or PlasmaOrdered By: Gopal Larsen on 05-20-2022 AST [Catalytic activity/Vol] 95 U/L 10-42 [facility] Bacterial blood cultureOrder ed By: Gopal Larsen on 05-20-2022 Bacteria identified Cx Nom (Bld) NO GROWTH 5 DAYS [facility] Bacteria identified Cx Nom (Bld) NO GROWTH 5 DAYS [facility] Basophils Auto (Bld) [#/Vol] Ordered By: Gopal Larsen on 05-20-2022 Basophils (Bld) [#/Vol] 0.1 10*3/uL 0.0-0.2 [facility] Basophils/100 WBC Auto (Bld) Ordered By: Gopal Larsen on 05-20-2022 Basophils/100 WBC (Bld) 0.8 % . [facility] Bilirubin.total [Mass/volume ] in Serum or PlasmaOrdered By: Gopal Larsen on 05-20-2022 Bilirubin [Mass/Vol] 1.1 mg/dL 0.3-1.2 [facility] Blood Cultureon 05-20-2022 Bacteria identified Cx Nom (Bld) NO GROWTH 5 DAYS PERFORMED BY: [facility] [address] [place] [id number] PATHOLOGIST INTERNAL MEDICINE PHYSICIAN SESAR VAUGHN M.D. Normal [facility] Comment on above: Performed By: #### C UBLD ####[facility] [address] Performed By: #### G LULS #### Point of Care testing , C reactive protein [Mass/vol ume] in Serum or PlasmaOrdered By: Salvador Alonso on 05-20-2022 CRP [Mass/Vol] 15.2 mg/dL 0.0-1.0 [facility] C-Reactive Proteinon 023 C-Reactive Protein 15.2 mg/dL High 0.0-1.0 [facility] Comment on above: Result Comment: PERF ORMED BY: [facility] [address] [place] [address] PATHOLOGIST INTERNAL MEDICINE PHYSICIAN SESAR VAGUHN M.D. Performed By: #### C RP, ESR ####[facility] [id number] chest wo conon 05-20-2022 CT chest wo con [facility] [address] [address] [place] [address] CT Scan Report Signed Patient: Gopal Yates Jr MR#: [id number] : 1965 Acct:[id number] Age/Sex: 56 / M ADM Date: 05/20/22 Loc: ER Room: Type: [facility] ER Attending Dr: Copies to: Gopal Larsen MD Ordering Provider: Gopal Larsen MD Date of Service: 05/20/22 CT/CT chest wo con: Right chest mass CT CHEST WITHOUT IV CONTRAST: CLINICAL HISTORY: Abnormal chest x-ray COMPARISON: Chest x-ray performed earlier today TECHNIQUE: Spiral images were obtained through the chest without IV contrast. This CT exam was performed using one or more following dose reduction techniques: Automated exposure control, adjustment of the mA and/or kV according to patient size, or use of iterative reconstruction technique. FINDINGS: Mediastinum:Thoracic aorta appears normal in caliber. Pulmonary trunk appears nondilated. No pericardial effusion. No lymphadenopathy. The esophagus is grossly unremarkable. Lungs:A moderate amount of fluid is seen involving the right major fissure corresponding to the abnormality seen on chest x-ray. Additional small amount of fluid is seen within the pleural space with associated pleural thickening suggesting a chronic effusion. Small left-sided pleural effusion is seen. There is associated bibasilar atelectasis. No consolidation or pneumothorax. No mass or nodule. Calcified granulomas left lower lobe. Abd:No acute findings. Soft tissues/Bones: Visualized soft tissues demonstrate no acute process. Osseous structures demonstrate degenerative change. CT/CT chest wo con IMPRESSION: A moderate amount of fluid is seen involving the right major fissure corresponding to the abnormality seen on chest x-ray. Additional small moderate fluid is seen involving the right pleural space with associated pleural thickening suggesting a chronic effusion. A small left-sided pleural effusion is also seen. No CT evidence of lung mass. Impression dictated by: Armando Macias Jr., D.OImani05/20/2022 12:30 PM Dictation Location: [place] [address] Transcribed By: [facility] 05/20/22 1230 Dictated By: Armando Macias Jr, DO 05/20/22 1226 Signed By: 05/20/22 1230 Normal [facility] Calcium [Mass/volume] in Ser um or PlasmaOrdered By: Gopal Larsen on 05-20-2022 Calcium [Mass/Vol] 7.7 mg/dL 8.2-10.2 [facility] Carbon dioxide, total [Moles /volume] in Serum or PlasmaOrdered By: Gopal Larsen on 05-20-2022 CO2 [Moles/Vol] 19.9 mmol/L 22.0-30.0 [facility] Chloride [Moles/volume] in S yulissa or PlasmaOrdered By: Gopal Larsen on 05-20-2022 Chloride [Moles/Vol] 101 mmol/L 95-114 [facility] Complete Blood Count Auto Di ffon 05-20-2022 Basophils (Bld) [#/Vol] 0.1 10*3/uL Normal 0.0-0.2 [facility] Comment on above: Result Comment: PERF ORMED BY: [facility] [address] [place] [address] PATHOLOGIST INTERNAL MEDICINE PHYSICIAN SESAR VAUGHN M.D. Performed By: #### G LULS #### Point of Care testing , Basophils/100 WBC (Bld) 0.8 % Normal . [facility] Comment on above: Performed By: #### G LULS #### Point of Care testing , Eosinophils (Bld) [#/Vol] 0.0 10*3/uL Normal 0.0-0.45 [facility] Comment on above: Performed By: #### G LULS #### Point of Care testing , Eosinophils/100 WBC (Bld) 0.2 % Normal . [facility] Comment on above: Performed By: #### G BERT #### Point of Care testing , Erythrocyte distribution width (RBC) [Ratio] 14.9 % High 12.0-14.8 [facility] Comment on above: Performed By: #### G HOLGERLS #### Point of Care testing , Hematocrit (Bld) [Volume fraction] 25.4 % Low 38.8-50.0 [facility] Comment on above: Performed By: #### G HOLGERLS #### Point of Care testing , Hemoglobin (Bld) [Mass/Vol] 8.4 g/dL Low 13.0-17.0 [facility] Comment on above: Performed By: #### G HOLGERLS #### Point of Care testing , Lymphocytes (Bld) [#/Vol] 0.3 10*3/uL Low 1.00-4.8 [facility] Comment on above: Performed By: #### G HOLGERLS #### Point of Care testing , Lymphocytes/100 WBC (Bld) 3.3 % Normal . [facility] Comment on above: Performed By: #### G BERT #### Point of Care testing , MCH (RBC) [Entitic mass] 27.2 pg Low 27.5-35.2 [facility] Comment on above: Performed By: #### G HOLGERLS #### Point of Care testing , MCV (RBC) [Entitic vol] 81.9 fL Low 83.5-101 [facility] Comment on above: Performed By: #### G HOLGERLS #### Point of Care testing , Mean Corpuscular HGB Conc 33.2 g/dL Normal 32.5-35.6 [facility] Comment on above: Performed By: #### G HOLGERLS #### Point of Care testing , Monocytes (Bld) [#/Vol] 0.8 10*3/uL Normal 0.0-0.8 [facility] Comment on above: Performed By: #### G BERT #### Point of Care testing , Monocytes/100 WBC (Bld) 21.96 % High 0.00-20.00 [facility] Comment on above: Result Comment: For adults in ED, MDW > 20.0 may be associated with a higher risk of sepsis during the first 12 hrs of hospital admission Performed By: #### G HOLGERLS #### Point of Care testing , Monocytes/100 WBC (Bld) 8.7 % Normal . [facility] Comment on above: Performed By: #### G HOLGERLS #### Point of Care testing , Neutrophils (Bld) [#/Vol] 8.0 10*3/uL High 1.8-7.7 [facility] Comment on above: Performed By: #### G HOLGERLS #### Point of Care testing , Neutrophils/100 WBC (Bld) 87.0 % Normal . [facility] Comment on above: Performed By: #### G HOLGERLS #### Point of Care testing , NRBC% 0.1 /100{WBC} Normal 0-0.5 [facility] Comment on above: Performed By: #### G HOLGERLS #### Point of Care testing , Platelet mean volume (Bld) [Entitic vol] 9.3 fL Normal 6.6-10.1 [facility] Comment on above: Performed By: #### G HOLGERLS #### Point of Care testing , Platelets (Bld) [#/Vol] 165 10*3/uL Normal 150-450 [facility] Comment on above: Performed By: #### G BERT #### Point of Care testing , RBC (Bld) [#/Vol] 3.10 10*6/uL Low 3.90-5.60 [facility] Comment on above: Performed By: #### G HOLGERLS #### Point of Care testing , WBC (Bld) [#/Vol] 9.2 10*3/uL Normal 4.1-10.5 [facility] Comment on above: Performed By: #### G HOLGERLS #### Point of Care testing , Comprehensive Metabolic Pane stewart 05-20-2022 Albumin [Mass/Vol] 1.8 g/dL Low 3.2-5.5 [facility] Comment on above: Performed By: #### G BERT #### Point of Care testing , Albumin/Globulin [Mass ratio] 0.4 {ratio} [facility] Comment on above: Performed By: #### G BERT #### Point of Care testing , ALP [Catalytic activity/Vol] 169 U/L High 32-92 [facility] Comment on above: Performed By: #### Lily NOEL #### Point of Care testing , ALT [Catalytic activity/Vol] 64 U/L High 10-60 [facility] Comment on above: Performed By: #### G BERT #### Point of Care testing , Anion gap [Moles/Vol] 15.9 mmol/L High 6.0-15.0 [facility] Comment on above: Performed By: #### G BERT #### Point of Care testing , AST [Catalytic activity/Vol] 95 U/L High 10-42 [facility] Comment on above: Performed By: #### Lily NOEL #### Point of Care testing , Bilirubin [Mass/Vol] 1.1 mg/dL Normal 0.3-1.2 [facility] Comment on above: Performed By: #### Lily NOEL #### Point of Care testing , Calcium [Mass/Vol] 7.7 mg/dL Low 8.2-10.2 [facility] Comment on above: Performed By: #### Lily NOEL #### Point of Care testing , Chloride [Moles/Vol] 101 mmol/L Normal 95-114 [facility] Comment on above: Performed By: #### Lily NOEL #### Point of Care testing , CO2 [Moles/Vol] 19.9 mmol/L Low 22.0-30.0 [facility] Comment on above: Performed By: #### G BERT #### Point of Care testing , Creatinine [Mass/Vol] 5.50 mg/dL High 0.64-1.27 [facility] Comment on above: Performed By: #### G BERT #### Point of Care testing , Creatinine Clr Calc Pharmacy 18.19 [facility] Comment on above: Result Comment: PERF ORMED BY: [facility] [place] [address] PATHOLOGIST INTERNAL MEDICINE PHYSICIAN SESAR VAUGHN M.D. Performed By: #### G LULS #### Point of Care testing , Estimated GFR ( Wendy 13 [facility] Comment on above: Result Comment: GFR estimated reference range: According to KDOQI guidelines, <60 ml/min/1.73m2 is sufficient to diagnose a patient with chronic kidney disease. Performed By: #### G LULS #### Point of Care testing , Estimated GFR (Non- Am 11 [facility] Comment on above: Performed By: #### G LULS #### Point of Care testing , Globulin (S) [Mass/Vol] 4.7 g/dL Normal [facility] Comment on above: Performed By: #### G LULS #### Point of Care testing , Glucose [Mass/Vol] 110 mg/dL High 70-100 [facility] Comment on above: Result Comment: [place] Glucose Reference Range is dependent on time and content of last meal. Glucose of more than 200 mg/dL in a nonstressed, ambulatory subject supports the diagnosis of Diabetes Mellitus. ADA recommended reference range Performed By: #### G LULS #### Point of Care testing , Potassium [Moles/Vol] 4.8 mmol/L Normal 3.5-5.1 [facility] Comment on above: Performed By: #### G LULS #### Point of Care testing , Protein [Mass/Vol] 6.5 g/dL Normal 6.1-7.9 [facility] Comment on above: Performed By: #### G LULS #### Point of Care testing , Sodium [Moles/Vol] 132 mmol/L Low 136-146 [facility] Comment on above: Performed By: #### G LULS #### Point of Care testing , Urea nitrogen [Mass/Vol] 77 mg/dL High 9-23 [facility] Comment on above: Performed By: #### G LULS #### Point of Care testing , Creatinine and Glomerular fi ltration rate.predicted panel (S/P/Bld)Ordered By: Gopal Larsen on 05-20-2022 Creatinine [Mass/Vol] 5.50 mg/dL 0.64-1.27 [facility] ECG 12 lead ECGon 05-20-2022 ECG 12 lead ECG [facility] Main [employer] [address] [place] [address] Electrocardiograph Report Signed Patient: Gopal Yates Jr MR#: [id number] : 1965 Acct:[id number] Age/Sex: 56 / M ADM Date: 05/20/22 Loc: Room: [address] [place] [address] Type: ADM IN Attending Dr: Salvador Alonso MD Ordering Provider: Gopal Larsen MD Date of Service: 05/20/2204/13/1030 ECG/ECG 12 lead ECG: Skin/Abscess/Foreign Body Copies to: Test Reason : Blood Pressure : / mmHG Vent. Rate : 066 BPM Atrial Rate : 066 BPM P-R Int : 186 ms QRS Dur : 088 ms QT Int : 438 ms P-R-T Axes : 092 -13 066 degrees QTc Int : 459 ms Normal sinus rhythm Nonspecific T wave abnormality Abnormal ECG When compared with ECG of 06-MAY-2022 10:21, premature atrial complexes are no longer present Nonspecific T wave abnormality, improved in Lateral leads Confirmed by GOPAL LARSEN MD ([id number]) on 05/20/2022 7:35:50 PM Referred By: Electronically Signed By:GOPAL LARSEN MD Transcribed By: MUS Signed By Gopal Larsen MD 05/20/22 193 Normal [facility] Eosinophils Auto (Bld) [#/Vo l]Ordered By: Gopal Larsen on 05-20-2022 Eosinophils (Bld) [#/Vol] 0.0 10*3/uL 0.0-0.45 [facility] Eosinophils/100 WBC Auto (Bl d)Ordered By: Gopal Larsen on 05-20-2022 Eosinophils/100 WBC (Bld) 0.2 % . [facility] Erythrocyte Sedimentation Ra cindy 05-20-2022 ESR (Bld) [Velocity] 88 mm/h High 0-19 [facility] Comment on above: Result Comment: PERF ORMED BY: [facility] [address] [place] [address] PATHOLOGIST INTERNAL MEDICINE PHYSICIAN SESAR VAUGHN M.D. Performed By: #### C RP, ESR ####[facility] [id number] [place] [id number] [facility] Erythrocyte distribution wid th Auto (RBC) [Ratio]Ordered By: Gopal Larsen on 05-20-2022 Erythrocyte distribution width (RBC) [Ratio] 14.9 % 12.0-14.8 [facility] Erythrocyte sedimentation ra te by Photometric methodOrdered By: Salvador Alonso on 05-20-2022 ESR Photometric method (Bld) [Velocity] 88 mm/hr 0-19 [facility] Estimated glomerular filtrat ion rate (GFR) non- AmericanOrdered By: Gopal Larsen on 05-20-2022 GFR/1.73 sq M.predicted among non-blacks MDRD (S/P/Bld) [Vol rate/Area] 11 mL/Min [facility] Globulin Calc (S) [Mass/Vol] Ordered By: Gopal Larsen on 05-20-2022 Globulin (S) [Mass/Vol] 4.7 g/dL [facility] Glucose [Mass/volume] in Ser um or PlasmaOrdered By: Gopal Larsen on 05-20-2022 Glucose [Mass/Vol] 110 mg/dL 70-100 [facility] Comment on above: ADA recommended refe rence rangeRandom Glucose Reference Range is dependent on time and content of last meal. Glucose of more than 200 mg/dL in a nonstressed, ambulatory subject supports the diagnosis of Diabetes Mellitus. Hematocrit Auto (Bld) [Volum e fraction]Ordered By: Gopal Larsen on 05-20-2022 Hematocrit (Bld) [Volume fraction] 25.4 % 38.8-50.0 [facility] Hemoglobin [Mass/volume] in BloodOrdered By: Gopal Larsen on 05-20-2022 Hemoglobin (Bld) [Mass/Vol] 8.4 g/dL 13.0-17.0 [facility] Laboratory - CoagulationOrde red By: Gopal Larsen on 05-20-2022 PT Coag (PPP) [Time] 15.3 s 9.0-12.9 [facility] Lactic Acidon 05-20-2022 Lactate [Moles/Vol] 1.8 mmol/L Normal 0.5-2.2 [facility] Comment on above: Result Comment: PERF ORMED BY: [facility] [address] [place] [address] PATHOLOGIST INTERNAL MEDICINE PHYSICIAN SESAR VAUGHN M.D. Performed By: #### C RP #### [address] Leukocytes [#/volume] correc annalisa for nucleated erythrocytes in Blood by Automated counOrdered By: Gopal Larsen on 05-20-2022 WBC corrected for nucl RBC Auto (Bld) [#/Vol] 9.2 10*3/uL 4.1-10.5 [facility] Lymphocytes Auto (Bld) [#/Vo l]Ordered By: Gopal Larsen on 05-20-2022 Lymphocytes (Bld) [#/Vol] 0.3 10*3/uL 1.00-4.8 [facility] Lymphocytes/100 WBC Auto (Bl d)Ordered By: Gopal Larsen on 05-20-2022 Lymphocytes/100 WBC (Bld) 3.3 % . [facility] MCH Auto (RBC) [Entitic mass ]Ordered By: Gopal Larsen on 05-20-2022 MCH (RBC) [Entitic mass] 27.2 pg 27.5-35.2 [facility] MCHC Auto (RBC) [Mass/Vol]Or dered By: Gopal Larsen on 05-20-2022 MCHC (RBC) [Mass/Vol] 33.2 g/dL 32.5-35.6 [facility] MCV Auto (RBC) [Entitic vol] Ordered By: Gopal Larsen on 05-20-2022 MCV (RBC) [Entitic vol] 81.9 fL 83.5-101 [facility] Monocyte distribution width [Entitic volume] in Blood by AutomatedOrdered By: Gopal Larsen on 05-20-2022 Monocyte distribution width Auto (Bld) [Entitic vol] 21.96 % 0.00-20.00 [facility] Comment on above: For adults in ED, W > 20.0 may be associated with a higher risk of sepsis during the first 12 hrs of hospital admission Monocytes Auto (Bld) [#/Vol] Ordered By: Gopal Larsen on 05-20-2022 Monocytes (Bld) [#/Vol] 0.8 10*3/uL 0.0-0.8 [facility] Monocytes/100 WBC Auto (Bld) Ordered By: Gopal Larsen on 05-20-2022 Monocytes/100 WBC (Bld) 8.7 % . [facility] Neutrophils Auto (Bld) [#/Vo l]Ordered By: Gopal Larsen on 05-20-2022 Neutrophils (Bld) [#/Vol] 8.0 10*3/uL 1.8-7.7 [facility] Neutrophils/100 WBC Auto (Bl d)Ordered By: Gopal Larsen on 05-20-2022 Neutrophils/100 WBC (Bld) 87.0 % . [facility] No Panel InformationOrdered By: Gopal Larsen on 05-20-2022 Estimated GFR () 13 mL/Min [facility] Comment on above: GFR estimated refere nce range: According to KDOQI guidelines, <60 ml/min/1.73m2 is sufficient to diagnose a patient with chronic kidney disease. Pharmacy Creatinine Clearance (Chem 18.19 [facility] Nucleated erythrocytes [Pres ence] in Blood by Automated countOrdered By: Gopal Larsen on 05-20-2022 Nucleated RBC Auto Ql (Bld) 0.1 /100{WBC} 0-0.5 [facility] Partial Thromboplastin Timeo n 05-20-2022 aPTT Coag (Bld) [Time] 30.7 s Normal 25.1-36.5 [facility] Comment on above: Result Comment: PERF ORMED BY: [facility] [address] [place] [address] PATHOLOGIST INTERNAL MEDICINE PHYSICIAN SESAR VAUGHN M.D. Performed By: #### G LULS #### Point of Care testing , Platelet mean volume Auto (B ld) [Entitic vol]Ordered By: Gopal Larsen on 05-20-2022 Platelet mean volume (Bld) [Entitic vol] 9.3 fL 6.6-10.1 [facility] Platelet poor plasma interna tional normalized ratio (INR) by coagulation assay (relatOrdered By: Gopal Larsen on 05-20-2022 INR Coag (PPP) [Relative time] 1.3 {INR} [facility] Comment on above: INR Therapeutic Rang e A) Pre- and Peroperative OAT started two weeks before surgery. NOT HIP SURGERY: 1.5 - 2.5 HIP SURGERY: 2 - 3B) Primary and secondary prevention of venous THROMBOSIS: 2 - 3C) Active venous thrombosis, pulmonary embolismand prevention of recurrent venous thrombosis: 2 - 3D) Prevention of arterial thromboembolismincluding patients with mechanical heart valves: 3 - 4.5 Platelets Auto (Bld) [#/Vol] Ordered By: Gopal Larsen on 05-20-2022 Platelets (Bld) [#/Vol] 165 10*3/uL 150-450 [facility] Potassium [Moles/volume] in Serum or PlasmaOrdered By: Gopal Larsen on 05-20-2022 Potassium [Moles/Vol] 4.8 mmol/L 3.5-5.1 [facility] Protein [Mass/volume] in Ser um or PlasmaOrdered By: Gopal Larsen on 05-20-2022 Protein [Mass/Vol] 6.5 g/dL 6.1-7.9 [facility] Prothrombin Time INRon 05-20 INR Coag (PPP) [Relative time] 1.3 {INR} Normal [facility] Comment on above: Result Comment: INR Therapeutic Range A) Pre- and Peroperative OAT started two weeks before surgery. NOT HIP SURGERY: 1.5 - 2.5 HIP SURGERY: 2 - 3 B) Primary and secondary prevention of venous THROMBOSIS: 2 - 3 C) Active venous thrombosis, pulmonary embolism and prevention of recurrent venous thrombosis: 2 - 3 D) Prevention of arterial thromboembolism including patients with mechanical heart valves: 3 - 4.5 Performed By: #### G LULS #### Point of Care testing , PT Coag (PPP) [Time] 15.3 s High 9.0-12.9 [facility] Comment on above: Performed By: #### G LULS #### Point of Care testing , RBC Auto (Bld) [#/Vol]Ordere d By: Gopal Larsen on 05-20-2022 RBC (Bld) [#/Vol] 3.10 10*6/uL 3.90-5.60 [facility] Serum or plasma alanine hayes otransferase measurement without P-5'-P (enzymatic activiOrdered By: Gopal Larsen on 05-20-2022 ALT No additional P-5'-P [Catalytic activity/Vol] 64 U/L 1060 [facility] Serum or plasma albumin/glob ulin mass ratioOrdered By: Gopal Larsen on 05-20-2022 Albumin/Globulin [Mass ratio] 0.4 {ratio} [facility] Serum or plasma anion gap de terminationOrdered By: Gopal Larsen on 05-20-2022 Anion gap [Moles/Vol] 15.9 mmol/L 6.0-15.0 [facility] Sodium [Moles/volume] in Ser um or PlasmaOrdered By: Gopal Larsen on 05-20-2022 Sodium [Moles/Vol] 132 mmol/L 136-146 [facility] Superficial Wound Cultureon 05-20-2022 Superficial Wound Culture Light Normal Skin Efren 2 Days PERFORMED BY: [facility] [address] [place] [address] PATHOLOGIST INTERNAL MEDICINE PHYSICIAN SESAR VAUGHN M.D. [facility] Comment on above: Performed By: #### C USUP ####[facility] [id number] [place] [address] [facility] Urea nitrogen [Mass/volume] in Serum or PlasmaOrdered By: Gopal Larsen on 05-20-2022 Urea nitrogen [Mass/Vol] 77 mg/dL 12-12 [facility] Urine lactic acid measuremen tOrdered By: Gopal Larsen on 05-20-2022 Lactate (U) [Moles/Vol] 1.8 mmol/L 0.5-2.2 [facility] WBC Auto (Bld) [#/Vol]Ordere d By: Gopal Larsen on 05-20-2022 WBC (Bld) [#/Vol] 9.2 10*3/uL 4.1-10.5 [facility] XR chest 1V portableon 05-20 XR chest 1V portable [facility] Main [employer] [address] [place] [address] XRay Report Signed Patient: Gopal Yates Jr MR#: [id number] : 1965 Acct:[id number] Age/Sex: 56 / M ADM Date: 05/20/22 Loc: ER Room: Type: [facility] ER Attending Dr: Copies to: Gopal Larsen MD Ordering Provider: Gopal Larsen MD Date of Service: 05/20/22 XR/XR chest 1V portable: Skin/Abscess/Foreign Body XR chest 1V portable 05/20/2022 10:44 AM SIGNS AND SYMPTOMS: Infection of right foot PROTOCOL: Frontal radiograph of the chest COMPARISON: None FINDINGS: The trachea is midline. The heart and mediastinal structures are within normal limits. Opacities are noted in the right perihilar region and at the right lung base. There is blunting of the costophrenic sulci bilaterally suspicious for pleural effusions. The bony thorax is intact. XR/XR chest 1V portable IMPRESSION: There is a masslike opacity in the right perihilar region. Follow-up with dedicated contrast- enhanced CT of the chest is recommended as malignancy is not excluded. Small bilateral pleural effusions are noted with airspace opacity at the right lung base. Impression dictated by: Flynn Bradley M.D.05/20/2022 11:02 AM Dictation Location: [place] [address] Transcribed By: [facility] 05/20/22 1102 Dictated By: Flynn Bradley II, MD 05/20/22 1059 Signed By: 05/20/22 1102 Normal [facility] XR foot RT 2Von 05-20-2022 XR foot RT 2V [facility] Main [address] [address] XRay Report Signed Patient: Gopal Yates Jr MR#: [id number] : 1965 Acct:[id number] Age/Sex: 56 / M ADM Date: 05/20/22 Loc: ER Room: Type: [facility] ER Attending Dr: Copies to: Gopal Larsen MD Ordering Provider: Gopal Larsen MD Date of Service: 05/20/22 XR/XR foot RT 2V: Skin/Abscess/Foreign Body XR foot RT 2V 05/20/2022 10:33 AM SIGNS AND SYMPTOMS: Skin/Abscess/Foreign Body PROTOCOL: Frontal and lateral radiographs of the right foot COMPARISON: None FINDINGS: Degenerative changes are noted in the midfoot. There has been resection of the fifth metatarsal and fifth digit with subcutaneous emphysema in the lateral soft tissues of the right foot. There is osteopenia along the lateral margin of the distal fourth metatarsal suspicious for osteomyelitis. This is new compared to the prior exam. Vascular calcifications are present in the soft tissues. XR/XR foot RT 2V IMPRESSION: There is osteopenia along the lateral margin of the distal fourth metatarsal suspicious for osteomyelitis. Subcutaneous emphysema in the lateral soft tissues of the right foot. This is suspicious for cellulitis with underlying abscess. There has been resection of the fifth metatarsal and fifth digit. Impression dictated by: Flynn Bradley M.D.05/20/2022 11:04 AM Dictation Location: [place] [address] Transcribed By: [facility] 05/20/22 1104 Dictated By: Flynn Bradley II, MD 05/20/22 1102 Signed By: 05/20/22 1104 [facility] Aerobic cultureOrdered By: Hortencia Griggs on 05-19-2022 Bacteria identified Aer cx Nom (Unsp spec) 2 Days [facility] Bacteria identified Aer cx Nom (Unsp spec) 2 Days [facility] Superficial Wound Cultureon 05-19-2022 Superficial Wound Culture Rare normal skin efren 2 Days PERFORMED BY: [place] [address] PATHOLOGIST INTERNAL MEDICINE PHYSICIAN SESAR VAUGHN M.D. [facility] Comment on above: Performed By: #### C #### [address] Basophils Auto (Bld) [#/Vol] Ordered By: Cornelio Simon on 05-08-2022 Basophils (Bld) [#/Vol] 0.1 10*3/uL 0.0-0.2 [facility] Basophils/100 WBC Auto (Bld) Ordered By: Cornelio Simon on 05-08-2022 Basophils/100 WBC (Bld) 0.6 % . [facility] Creatinine and Glomerular fi ltration rate.predicted panel (S/P/Bld)Ordered By: Cornelio Simon on 05-08-2022 Creatinine [Mass/Vol] 5.34 mg/dL 0.64-1.27 [facility] Eosinophils Auto (Bld) [#/Vo l]Ordered By: Cornelio Simon on 05-08-2022 Eosinophils (Bld) [#/Vol] 0.1 10*3/uL 0.0-0.45 [facility] Eosinophils/100 WBC Auto (Bl d)Ordered By: Cornelio Simon on 05-08-2022 Eosinophils/100 WBC (Bld) 0.7 % . [facility] Erythrocyte distribution wid th Auto (RBC) [Ratio]Ordered By: Cornelio Simon on 05-08-2022 Erythrocyte distribution width (RBC) [Ratio] 14.3 % 12.0-14.8 [facility] Estimated glomerular filtrat ion rate (GFR) non- AmericanOrdered By: Cornelio Simon on 05-08-2022 GFR/1.73 sq M.predicted among non-blacks MDRD (S/P/Bld) [Vol rate/Area] 11 mL/Min [facility] Hematocrit Auto (Bld) [Volum e fraction]Ordered By: Cornelio Simon on 05-08-2022 Hematocrit (Bld) [Volume fraction] 27.0 % 38.8-50.0 [facility] Hemoglobin [Mass/volume] in BloodOrdered By: Cornelio Simon on 05-08-2022 Hemoglobin (Bld) [Mass/Vol] 9.1 g/dL 13.0-17.0 [facility] Leukocytes [#/volume] correc annalisa for nucleated erythrocytes in Blood by Automated counOrdered By: Cornelio Simon on 05-08-2022 WBC corrected for nucl RBC Auto (Bld) [#/Vol] 9.8 10*3/uL 4.1-10.5 [facility] Lymphocytes Auto (Bld) [#/Vo l]Ordered By: Cornelio Simon on 05-08-2022 Lymphocytes (Bld) [#/Vol] 0.4 10*3/uL 1.00-4.8 [facility] Lymphocytes/100 WBC Auto (Bl d)Ordered By: Cornelio Simon on 05-08-2022 Lymphocytes/100 WBC (Bld) 4.0 % . [facility] MCH Auto (RBC) [Entitic mass ]Ordered By: Cornelio Simon on 05-08-2022 MCH (RBC) [Entitic mass] 27.8 pg 27.5-35.2 [facility] MCHC Auto (RBC) [Mass/Vol]Or dered By: Cornelio Simon on 05-08-2022 MCHC (RBC) [Mass/Vol] 33.6 g/dL 32.5-35.6 [facility] MCV Auto (RBC) [Entitic vol] Ordered By: Cornelio Simon on 05-08-2022 MCV (RBC) [Entitic vol] 82.5 fL 83.5-101 [facility] Monocytes Auto (Bld) [#/Vol] Ordered By: Cornelio Simon on 05-08-2022 Monocytes (Bld) [#/Vol] 0.9 10*3/uL 0.0-0.8 [facility] Monocytes/100 WBC Auto (Bld) Ordered By: Cornelio Simon on 05-08-2022 Monocytes/100 WBC (Bld) 9.6 % . [facility] Neutrophils Auto (Bld) [#/Vo l]Ordered By: Cornelio Simon on 05-08-2022 Neutrophils (Bld) [#/Vol] 8.3 10*3/uL 1.8-7.7 [facility] Neutrophils/100 WBC Auto (Bl d)Ordered By: Cornelio Simon on 05-08-2022 Neutrophils/100 WBC (Bld) 85.1 % . [facility] No Panel InformationOrdered By: Cornelio Simon on 05-08-2022 Estimated GFR () 13 mL/Min [facility] Comment on above: GFR estimated refere nce range: According to KDOQI guidelines, <60 ml/min/1.73m2 is sufficient to diagnose a patient with chronic kidney disease. Pharmacy Creatinine Clearance (Chem 18.74 [facility] Nucleated erythrocytes [Pres ence] in Blood by Automated countOrdered By: Cornelio Simon on 05-08-2022 Nucleated RBC Auto Ql (Bld) 0.3 /100{WBC} 0-0.5 [facility] Platelet mean volume Auto (B ld) [Entitic vol]Ordered By: Cornelio Simon on 05-08-2022 Platelet mean volume (Bld) [Entitic vol] 9.2 fL 6.6-10.1 [facility] Platelets Auto (Bld) [#/Vol] Ordered By: Cornelio Simon on 05-08-2022 Platelets (Bld) [#/Vol] 168 10*3/uL 150-450 [facility] RBC Auto (Bld) [#/Vol]Ordere d By: Cornelio Simon on 05-08-2022 RBC (Bld) [#/Vol] 3.27 10*6/uL 3.90-5.60 [facility] Serum or plasma anion gap de terminationOrdered By: Cornelio Simon on 05-08-2022 Anion gap [Moles/Vol] 10.5 mmol/L 6.0-15.0 [facility] Serum or plasma calcium bertha urement (mass/volume)Ordered By: Cornelio Simon on 05-08-2022 Calcium [Mass/Vol] 7.3 mg/dL 8.2-10.2 [facility] Serum or plasma chloride neto surement (moles/volume)Ordered By: Cornelio Simon on 05-08-2022 Chloride [Moles/Vol] 104 mmol/L 95-114 [facility] Serum or plasma glucose bertha urement (mass/volume)Ordered By: Cornelio Simon on 05-08-2022 Glucose [Mass/Vol] 100 mg/dL 70-100 [facility] Comment on above: ADA recommended refe rence rangeRandom Glucose Reference Range is dependent on time and content of last meal. Glucose of more than 200 mg/dL in a nonstressed, ambulatory subject supports the diagnosis of Diabetes Mellitus. Serum or plasma potassium me asurement (moles/volume)Ordered By: Cornelio Simon on 05-08-2022 Potassium [Moles/Vol] 3.7 mmol/L 3.5-5.1 [facility] Serum or plasma sodium measu rement (moles/volume)Ordered By: Cornelio Siomn on 05-08-2022 Sodium [Moles/Vol] 133 mmol/L 136-146 [facility] Serum or plasma total carbon dioxide measurement (moles/volume)Ordered By: Cornelio Simon on 05-08-2022 CO2 [Moles/Vol] 22.2 mmol/L 22.0-30.0 [facility] Serum or plasma urea nitroge n measurement (mass/volume)Ordered By: Cornelio Simon on 05-08-2022 Urea nitrogen [Mass/Vol] 80 mg/dL 9-23 [facility] WBC Auto (Bld) [#/Vol]Ordere d By: Cornelio Simon on 05-08-2022 WBC (Bld) [#/Vol] 9.8 10*3/uL 4.1-10.5 [facility] Aerobic cultureOrdered By: Hortencia Griggs on 05-07-2022 Bacteria identified Aer cx Nom (Unsp spec) No Growth 2 Days [facility] Bacteria identified Aer cx Nom (Unsp spec) No Growth 2 Days [facility] Bacteria identified Anaer cx Nom (Unsp spec)Ordered By: Eddy Griggs on 05-07-2022 Anaerobic Culture Bacteroides fragilis [facility] Anaerobic Culture Bacteroides fragilis [facility] Glucose Glucometer (BldC) [M ass/Vol]Ordered By: Cornelio Simon on 05-07-2022 Glucose [Mass/Vol] 193 mg/dL [facility] Comment on above: Random Glucose Refer ence Range is dependent on time and content of last meal. Glucose of more than 200 mg/dL in a nonstressed, ambulatory subject supports the diagnosis of Diabetes Mellitus. Gram stain for investigation of transfusion reactionOrdered By: Eddy Griggs on 05-07-2022 Microscopic observation Gram stain Nom (Unsp spec) [facility] Microscopic observation Gram stain Nom (Unsp spec) [facility] No Panel InformationOrdered By: Cornelio Simon on 05-07-2022 Bedside Glucose Comment Glu2: cleaned meter [facility] Activated partial thrombopla stin time (aPTT) in platelet poor plasma by coagulation aOrdered By: Cornelio Simon on 05-06-2022 aPTT Coag (PPP) [Time] 38.6 s 25.1-36.5 [facility] Albumin [Mass/volume] in Ser um or PlasmaOrdered By: Cornelio Simon on 05-06-2022 Albumin [Mass/Vol] 2.2 g/dL 3.2-5.[address] [facility] [address] biopsyOrdered By: Bruce kee on 05-06-2022 Transferrin [Mass/Vol] 89 mg/dL 180-380 [facility] Cholesterol [Mass/volume] in Serum or PlasmaOrdered By: Cornelio Simon on 05-06-2022 Cholesterol [Mass/Vol] 63 mg/dL 140-200 [facility] Comment on above: Chol less than 200 m g/dl low riskChol 201-239 mg/dl borderline riskChol 240 mg/dl and greater high risk Cholesterol in LDL Calc [Mas s/Vol]Ordered By: Cornelio Simon on 05-06-2022 Cholesterol in LDL [Mass/Vol] 28 mg/dL 0-100 [facility] Comment on above: LDL ATP III CLASSIFI CATIONLDL less than 100 mg/dL OptimalLDL 100-129 mg/dL Near or above optimalLDL 130-159 mg/dL Borderline highLDL 160-189 mg/dL HighLDL greater than 189 mg/dL Very high Cholesterol in VLDL Calc [Ma ss/Vol]Ordered By: Cornelio Simon on 05-06-2022 Cholesterol in VLDL [Mass/Vol] 16 mg/dL [facility] Ferritin [Mass/volume] in Se rum or PlasmaOrdered By: Yvonne Barboza on 05-06-2022 Ferritin [Mass/Vol] 426.1 ng/mL 23.9-336.2 [facility] Folate [Mass/volume] in Seru m or PlasmaOrdered By: Yvonne Barboza on 05-06-2022 Folate [Mass/Vol] 13.4 ng/mL >5.9 [facility] Comment on above: Folate reference ran ge: >5.9 ng/mlThe WHO technical consultation on folate and vitamin [id number] has determined that folate concentrations lessthan 4 ng/ml are considered deficient. Globulin Calc (S) [Mass/Vol] Ordered By: Cornelio Simon on 05-06-2022 Globulin (S) [Mass/Vol] 4.1 g/dL [facility] Glucose mean value [Mass/vol ume] in Blood Estimated from glycated hemoglobinOrdered By: Cornelio Simon on 05-06-2022 Average glucose Estimated from glycated hemoglobin (Bld) [Mass/Vol] 114 mg/dL [facility] Hemoglobin A1c percentageOrd ered By: Cornelio Simon on 05-06-2022 HbA1c (Bld) [Mass fraction] 5.6 % 4.3-5.6 [facility] Comment on above: Increased risk for d iabetes: 5.7 - 6.4diabetes: >6.4glycemic control for adults with diabetes: <7.0 Iron [Mass/volume] in Serum or PlasmaOrdered By: Yvonne Barboza on 05-06-2022 Iron [Mass/Vol] 15 ug/dL 40-160 [facility] Iron binding capacity [Mass/ volume] in Serum or PlasmaOrdered By: Yovnne Barboza on 05-06-2022 Iron binding capacity [Mass/Vol] 125 ug/dL 255-450 [facility] Iron saturation [Mass Fracti on] in Serum or PlasmaOrdered By: Yvonne Barboza on 05-06-2022 Iron saturation [Mass fraction] 12.0 % 20-50 [facility] - Chemistry and C hemistry - challengeOrdered By: Yvonne Barboza on 05-06-2022 Cobalamin (Vitamin B12) [Mass/Vol] 373 pg/mL 180-914 [facility] - CoagulationOrde red By: Cornelio Simon on 05-06-2022 PT Coag (PPP) [Time] 16.0 s 9.0-12.9 [facility] Platelet poor plasma interna tional normalized ratio (INR) by coagulation assay (relatOrdered By: Cornelio Simon on 05-06-2022 INR Coag (PPP) [Relative time] 1.4 {INR} [facility] Comment on above: INR Therapeutic Rang e A) Pre- and Peroperative OAT started two weeks before surgery. NOT HIP SURGERY: 1.5 - 2.5 HIP SURGERY: 2 - 3B) Primary and secondary prevention of venous THROMBOSIS: 2 - 3C) Active venous thrombosis, pulmonary embolismand prevention of recurrent venous thrombosis: 2 - 3D) Prevention of arterial thromboembolismincluding patients with mechanical heart valves: 3 - 4.5 Protein [Mass/volume] in Ser um or PlasmaOrdered By: Cornelio Simon on 05-06-2022 Protein [Mass/Vol] 6.3 g/dL 6.1-7.9 [facility] Serum or plasma alanine hayes otransferase measurement without P-5'-P (enzymatic activiOrdered By: Cornelio Simon on 05-06-2022 ALT No additional P-5'-P [Catalytic activity/Vol] 23 U/L 10-60 [facility] Serum or plasma albumin/glob ulin mass ratioOrdered By: Cornelio Simon on 05-06-2022 Albumin/Globulin [Mass ratio] 0.5 {ratio} [facility] Serum or plasma alkaline brain sphatase measurement (enzymatic activity/volume)Ordered By: Cornelio Simon on 05-06-2022 ALP [Catalytic activity/Vol] 137 U/L 32-92 [facility] Serum or plasma aspartate am inotransferase measurement (enzymatic activity/volume)Ordered By: Cornelio Simon on 05-06-2022 AST [Catalytic activity/Vol] 28 U/L 10-42 [facility] Serum or plasma high density lipoprotein (HDL) cholesterol measurementOrdered By: Cornelio Simon on 02-15-2023 Cholesterol in HDL [Mass/Vol] 18 mg/dL 29-71 [facility] Comment on above: HDL CHOL ATP-III CLA SSIFICATION Cardiovascular RiskHDL > or equal to 60 mg/dL LOWHDL < 40 mg/dL HIGH Serum or plasma total biliru bin measurement (mass/volume)Ordered By: Cornelio Simon on 05-06-2022 Bilirubin [Mass/Vol] 1.0 mg/dL 0.3-1.2 [facility] Serum or plasma total choles terol/high density lipoprotein (HDL) cholesterol mass ratOrdered By: Cornelio iSmon on 05-06-2022 Cholesterol.total/Nelly sterol in HDL [Mass ratio] 3.5 {ratio} <5.0 [facility] Triglyceride [Mass/volume] i n Serum or PlasmaOrdered By: Cornelio Simon on 05-06-2022 Triglyceride [Mass/Vol] 83 mg/dL 35-149 [facility] Comment on above: TRIG ATP III CLASSIF ICATIONTRIG less than 150 mg/dL NormalTRIG 150-199 mg/dL Borderline highTRIG 200-500 mg/dL High TRIG greater than 500 mg/dL Very highStandard traceable to the Center for Disease Conrtrol and Prevention (CDC) test method. Albumin [Mass/volume] in Ser um or PlasmaOrdered By: Lambert Blanc on 05-05-2022 Albumin [Mass/Vol] 2.6 g/dL 3.2-5.5 [facility] Bacterial blood cultureOrder ed By: Lambert Blanc on 05-05-2022 Bacteria identified Cx Nom (Bld) NO GROWTH 5 DAYS [facility] Bacteria identified Cx Nom (Bld) NO GROWTH 5 DAYS [facility] Bacterial susceptibility melo el MARCELO (Isol)on 05-05-2022 Microorganism identified Cx Nom (Unsp spec) [id number] Abnormal [facility] Comment on above: Order Comment: Speci men Type: MICROBIAL ISOLATEOrdering Facility: [facility] Address: [address] [place] [id number] Result Comment: Bact eroides fragilis group Specifically Bacteroides fragilis,as identified by client. Bacteroides spp. are intrinsically resistant to ampicillin, penicillin, and aminoglycosides. Performed By: #### 5 0545-3, 64118-3 ####[facility] LABCLIA [id number] [place] [address] [place] Bacterial susceptibility melo el Strip (Isol)on 05-05-2022 Ampicillin+Sulbactam [Susc] 8 Susceptible Susceptible <=8 , Intermediate >8 , Resistant >16 [facility] Comment on above: Order Comment: Order ing Facility: [facility] Address: [address] [place] [address] Performed By: #### 5 0545-3, 73228-0 ####[facility] LABCLIA [id number] [address] [place] Ertapenem MARCELO [Susc] 0.25 Susceptible Suscept ible <=4 , Intermediate >4 , Resistant >8 [facility] Comment on above: Order Comment: Order ing Facility: [facility] Address: [address] [place] [address] Performed By: #### 5 0545-3, 57635-0 ####[facility] LABCLIA [id number] [address] [place] metroNIDAZOLE [Susc] 0.125 Susceptible Suscept ible <=8 , Intermediate >8 , Resistant >16 [facility] Comment on above: Order Comment: Order ing Facility: [facility] Address: [address] [place] [address] Performed By: #### 5 0545-3, 07520-9 ####[facility] LABCLIA [id number] [place] [address] [place] Basophils Auto (Bld) [#/Vol] Ordered By: Lambert Blanc on 05-05-2022 Basophils (Bld) [#/Vol] 0.0 10*3/uL 0.0-0.2 [facility] Basophils/100 WBC Auto (Bld) Ordered By: Lambert Blanc on 05-05-2022 Basophils/100 WBC (Bld) 0.0 % . [facility] C reactive protein [Mass/vol ume] in Serum or PlasmaOrdered By: Lambert Blanc on 05-05-2022 CRP [Mass/Vol] 12.5 mg/dL 0.0-1.0 [facility] Creatinine and Glomerular fi ltration rate.predicted panel (S/P/Bld)Ordered By: Lambert Blanc on 05-05-2022 Creatinine [Mass/Vol] 6.13 mg/dL 0.64-1.27 [facility] Eosinophils Auto (Bld) [#/Vo l]Ordered By: Lambert Blanc on 05-05-2022 Eosinophils (Bld) [#/Vol] 0.0 10*3/uL 0.0-0.45 [facility] Eosinophils/100 WBC Auto (Bl d)Ordered By: Lambert Blanc on 05-05-2022 Eosinophils/100 WBC (Bld) 0.2 % . [facility] Erythrocyte distribution wid th Auto (RBC) [Ratio]Ordered By: Lambert Blanc on 05-05-2022 Erythrocyte distribution width (RBC) [Ratio] 14.2 % 12.0-14.8 [facility] Erythrocyte sedimentation ra te by Photometric methodOrdered By: Lambert Blanc on 05-05-2022 ESR Photometric method (Bld) [Velocity] 119 mm/hr 0-19 [facility] Estimated glomerular filtrat ion rate (GFR) non- AmericanOrdered By: Lambert Blanc on 05-05-2022 GFR/1.73 sq M.predicted among non-blacks MDRD (S/P/Bld) [Vol rate/Area] 10 mL/Min [facility] Globulin Calc (S) [Mass/Vol] Ordered By: Lambert Blanc on 05-05-2022 Globulin (S) [Mass/Vol] 4.6 g/dL [facility] Hematocrit Auto (Bld) [Volum e fraction]Ordered By: Lambert Blanc on 05-05-2022 Hematocrit (Bld) [Volume fraction] 31.8 % 38.8-50.0 [facility] Hemoglobin [Mass/volume] in BloodOrdered By: Lambert Blanc on 05-05-2022 Hemoglobin (Bld) [Mass/Vol] 10.4 g/dL 13.0-17.0 [facility] Leukocytes [#/volume] correc annalisa for nucleated erythrocytes in Blood by Automated counOrdered By: Lambert Blanc on 05-05-2022 WBC corrected for nucl RBC Auto (Bld) [#/Vol] 11.9 10*3/uL 4.1-10.5 [facility] Lymphocytes Auto (Bld) [#/Vo l]Ordered By: Lambert Blanc on 05-05-2022 Lymphocytes (Bld) [#/Vol] 0.4 10*3/uL 1.00-4.8 [facility] Lymphocytes/100 WBC Auto (Bl d)Ordered By: Lambert Blanc on 05-05-2022 Lymphocytes/100 WBC (Bld) 3.2 % . [facility] MCH Auto (RBC) [Entitic mass ]Ordered By: Lambert Blanc on 05-05-2022 MCH (RBC) [Entitic mass] 27.5 pg 27.5-35.2 [facility] MCHC Auto (RBC) [Mass/Vol]Or dered By: Lambert Blanc on 05-05-2022 MCHC (RBC) [Mass/Vol] 32.8 g/dL 32.5-35.6 [facility] MCV Auto (RBC) [Entitic vol] Ordered By: Lambert Blanc on 05-05-2022 MCV (RBC) [Entitic vol] 83.9 fL 83.5-101 [facility] Monocyte distribution width [Entitic volume] in Blood by AutomatedOrdered By: Lambert Blanc on 05-05-2022 Monocyte distribution width Auto (Bld) [Entitic vol] 18.26 % 0.00-20.00 [facility] Monocytes Auto (Bld) [#/Vol] Ordered By: Lambert Blanc on 05-05-2022 Monocytes (Bld) [#/Vol] 0.8 10*3/uL 0.0-0.8 [facility] Monocytes/100 WBC Auto (Bld) Ordered By: Lambert Blanc on 05-05-2022 Monocytes/100 WBC (Bld) 6.3 % . [facility] Neutrophils Auto (Bld) [#/Vo l]Ordered By: Lambert Blanc on 05-05-2022 Neutrophils (Bld) [#/Vol] 10.7 10*3/uL 1.8-7.7 [facility] Neutrophils/100 WBC Auto (Bl d)Ordered By: Lambert Blanc on 05-05-2022 Neutrophils/100 WBC (Bld) 90.3 % . [facility] No Panel InformationOrdered By: Lambert Blanc on 05-05-2022 Estimated GFR () 11 mL/Min [facility] Comment on above: GFR estimated refere nce range: According to KDOQI guidelines, <60 ml/min/1.73m2 is sufficient to diagnose a patient with chronic kidney disease. Pharmacy Creatinine Clearance (Chem 16.32 [facility] Nucleated erythrocytes [Pres ence] in Blood by Automated countOrdered By: Lambert Blanc on 05-05-2022 Nucleated RBC Auto Ql (Bld) 0.1 /100{WBC} 0-0.5 [facility] Platelet mean volume Auto (B ld) [Entitic vol]Ordered By: Lambert Blanc on 05-05-2022 Platelet mean volume (Bld) [Entitic vol] 9.6 fL 6.6-10.1 [facility] Platelets Auto (Bld) [#/Vol] Ordered By: Lambert Blanc on 05-05-2022 Platelets (Bld) [#/Vol] 189 10*3/uL 150-450 [facility] Protein [Mass/volume] in Ser um or PlasmaOrdered By: Lambert Blanc on 05-05-2022 Protein [Mass/Vol] 7.2 g/dL 6.1-7.9 [facility] RBC Auto (Bld) [#/Vol]Ordere d By: Lambert Blanc on 05-05-2022 RBC (Bld) [#/Vol] 3.79 10*6/uL 3.90-5.60 [facility] Serum or plasma alanine hayes otransferase measurement without P-5'-P (enzymatic activiOrdered By: Lambert Blanc on 05-05-2022 ALT No additional P-5'-P [Catalytic activity/Vol] 30 U/L 10-60 [facility] Serum or plasma albumin/glob ulin mass ratioOrdered By: Lambert Blanc on 05-05-2022 Albumin/Globulin [Mass ratio] 0.6 {ratio} [facility] Serum or plasma alkaline brain sphatase measurement (enzymatic activity/volume)Ordered By: Lambert Blanc on 05-05-2022 ALP [Catalytic activity/Vol] 167 U/L 32-92 [facility] Serum or plasma anion gap de terminationOrdered By: Lambert Blanc on 05-05-2022 Anion gap [Moles/Vol] 14.1 mmol/L 6.0-15.0 [facility] Serum or plasma aspartate am inotransferase measurement (enzymatic activity/volume)Ordered By: Lambert Blanc on 05-05-2022 AST [Catalytic activity/Vol] 45 U/L 10-42 [facility] Serum or plasma calcium bertha urement (mass/volume)Ordered By: Lambert Blanc on 05-05-2022 Calcium [Mass/Vol] 7.8 mg/dL 8.2-10.2 [facility] Serum or plasma chloride neto surement (moles/volume)Ordered By: Lambert Blanc on 05-05-2022 Chloride [Moles/Vol] 105 mmol/L 95-114 [facility] Serum or plasma glucose bertha urement (mass/volume)Ordered By: Lambert Blanc on 05-05-2022 Glucose [Mass/Vol] 106 mg/dL 70-100 [facility] Comment on above: ADA recommended refe rence rangeRandom Glucose Reference Range is dependent on time and content of last meal. Glucose of more than 200 mg/dL in a nonstressed, ambulatory subject supports the diagnosis of Diabetes Mellitus. Serum or plasma potassium me asurement (moles/volume)Ordered By: Lambert Blanc on 05-05-2022 Potassium [Moles/Vol] 4.1 mmol/L 3.5-5.1 [facility] Serum or plasma sodium measu rement (moles/volume)Ordered By: Lambert Blanc on 05-05-2022 Sodium [Moles/Vol] 132 mmol/L 136-146 [facility] Serum or plasma total biliru bin measurement (mass/volume)Ordered By: Lambert Blanc on 05-05-2022 Bilirubin [Mass/Vol] 0.9 mg/dL 0.3-1.2 [facility] Serum or plasma total carbon dioxide measurement (moles/volume)Ordered By: Lambert Blanc on 05-05-2022 CO2 [Moles/Vol] 17.0 mmol/L 22.0-30.0 [facility] Serum or plasma urea nitroge n measurement (mass/volume)Ordered By: Lambert Blanc on 05-05-2022 Urea nitrogen [Mass/Vol] 91 mg/dL 9 [facility] WBC Auto (Bld) [#/Vol]Ordere d By: Lambert Blanc on 05-05-2022 WBC (Bld) [#/Vol] 11.9 10*3/uL 4.1-10.5 [facility] CBC AUTO DIFFon 05-04-2022 BASO # 0.0 103/ul Normal 0.0-0.1 [facility] Comment on above: Performed By: #### V ITAD, FERR, FETIBC, B12FOL #### [facility] [address] [place] [address] Dr. Shilo Lam Basophils/100 WBC (Bld) 0.2 % Normal 0.2-2.0 [facility] Comment on above: Performed By: #### V ITAD, FERR, FETIBC, B12FOL #### [facility] [address] [address] [address] Shilo Lam EO # 0.0 103/ul Normal 0.0-0.7 [facility] Comment on above: Performed By: #### V ITAD, FERR, FETIBC, B12FOL #### [facility] [address] [address] [address] Shilo Lam Eosinophils/100 WBC (Bld) 0.1 % Critically low 0.9-7.0 [facility] Comment on above: Performed By: #### V ITAD, FERR, FETIBC, B12FOL #### [facility] [address] [place] [address] Dr. Shilo Lam Erythrocyte distribution width (RBC) [Ratio] 13.2 % Normal 11.0-15.0 [facility] Comment on above: Performed By: #### V ITAD, FERR, FETIBC, B12FOL #### [facility] [address] [place] [address] Dr. Shilo Lam Hematocrit (Bld) [Volume fraction] 32.2 % Critically low 42.0-54.0 [facility] Comment on above: Performed By: #### V ITAD, FERR, FETIBC, B12FOL #### [facility] [address] [place] [address] Dr. Shilo Lam Hemoglobin (Bld) [Mass/Vol] 10.6 g/dL Critically low 14.0-18.0 [facility] Comment on above: Performed By: #### V ITAD, FERR, FETIBC, B12FOL #### [facility] [address] [place] [address] Dr. Shilo Lam IG # 0.07 10e3/ul Critically high 0.00-0.03 [facility] Comment on above: Performed By: #### V ITAD, FERR, FETIBC, B12FOL #### [facility] [address] [place] [address] Dr. Shilo Lam IG % 0.5 % Normal 0.0-0.5 [facility] Comment on above: Performed By: #### V ITAD, FERR, FETIBC, B12FOL #### [facility] [address] [place] [address] Dr. Shilo Lam LYMPH # 0.4 103/ul Critically low 1.2-3.8 [facility] Comment on above: Performed By: #### V ITAD, FERR, FETIBC, B12FOL #### [facility] [address] [place] [address] Dr. Shilo Lam Lymphocytes/100 WBC (Bld) 2.6 % Critically low 20.5-60.0 [facility] Comment on above: Performed By: #### V ITAD, FERR, FETIBC, B12FOL #### [facility] [address] [place] [address] Dr. Shilo Lam MANUAL DIFF REQ NO Normal [facility] Comment on above: Performed By: #### V ITAD, FERR, FETIBC, B12FOL #### [facility] [address] [place] [address] Dr. Shilo Lam MCH (RBC) [Entitic mass] 27.7 pg Normal 25.9-34.0 [facility] Comment on above: Performed By: #### V ITAD, FERR, FETIBC, B12FOL #### [facility] [address] [place] [address] Dr. Shilo Lam MCHC (RBC) [Mass/Vol] 32.9 g/dL Normal 29.9-35.2 [facility] Comment on above: Performed By: #### V ITAD, FERR, FETIBC, B12FOL #### [facility] [address] [place] [address] Dr. Shilo Lam MCV (RBC) [Entitic vol] 84.1 fL Normal 80.0-94.0 [facility] Comment on above: Performed By: #### V ITAD, FERR, FETIBC, B12FOL #### [facility] [address] [place] [address] Dr. Shilo Lam MONO # 1.0 103/ul Critically high 0.3-0.8 [facility] Comment on above: Performed By: #### V ITAD, FERR, FETIBC, B12FOL #### [facility] [address] [place] [address] Dr. Shilo Lam Monocytes/100 WBC (Bld) 7.8 % Normal 1.7-12.0 [facility] Comment on above: Performed By: #### V ITAD, FERR, FETIBC, B12FOL #### [facility] [address] [place] [address] Dr. Shilo Lam NEUT # 11.9 103/ul Critically high 1.4-6.5 [facility] Comment on above: Performed By: #### V ITAD, FERR, FETIBC, B12FOL #### [facility] [address] [place] [address] Dr. Shilo Lam Neutrophils/100 WBC (Bld) 88.8 % Critically high 43.0-75.0 [facility] Comment on above: Performed By: #### V ITAD, FERR, FETIBC, B12FOL #### [facility] [address] [place] [address] Dr. Shilo Lam Platelet mean volume (Bld) [Entitic vol] 11.3 fL Normal 9.5-13.5 [facility] Comment on above: Performed By: #### V ITAD, FERR, FETIBC, B12FOL #### [facility] [address] [place] [address] Dr. Shilo Lam PLT 219 103/ul Normal 150-450 [facility] Comment on above: Performed By: #### V ITAD, FERR, FETIBC, B12FOL #### [facility] [address] [place] [address] Dr. Shilo Lam RBC 3.83 106/ul Critically low 4.70-6.10 [facility] Comment on above: Performed By: #### V ITAD, FERR, FETIBC, B12FOL #### [facility] [address] [place] [address] Dr. Shilo Lam WBC 13.4 103/ul Critically high 4.0-11.0 [facility] Comment on above: Performed By: #### V ITAD, FERR, FETIBC, B12FOL #### [facility] [address] [place] [address] Dr. Shilo Lam CRPon 05-04-2022 CRP 13.4 mg/dL Critically high <=1.0 [facility] Comment on above: Performed By: #### H H #### [facility] [address] [place] [address] Dr. Shilo Lam PROF 14(COMP METB)on 023 Albumin [Mass/Vol] 2.5 g/dL Critically low 3.4-5.0 [facility] Comment on above: Performed By: #### H H #### [facility] [address] [place] [address] Dr. Shilo Lam Albumin/Globulin [Mass ratio] 0.5 {ratio} Normal [facility] Comment on above: Performed By: #### H H #### [facility] [address] [place] [address] Dr. Shilo Lam ALP [Catalytic activity/Vol] 180 U/L Critically high 46-116 [facility] Comment on above: Performed By: #### H H #### [facility] [address] [place] [address] Dr. Shilo Lam ALT [Catalytic activity/Vol] 29 U/L Normal 16-63 [facility] Comment on above: Performed By: #### H H #### [facility] [address] [place] [address] Dr. Shilo Lam Anion gap [Moles/Vol] 21.5 mmol/L Normal [facility] Comment on above: Performed By: #### H H #### [facility] [address] [place] [address] Dr. Shilo Lam AST [Catalytic activity/Vol] 44 U/L Critically high 15-37 [facility] Comment on above: Performed By: #### H H #### [facility] [address] [place] [address] Dr. Shilo Lam Bilirubin [Mass/Vol] 0.7 mg/dL Normal 0.2-1.0 [facility] Comment on above: Performed By: #### H H #### [facility] [address] [place] [address] Dr. Shilo Lam Calcium [Mass/Vol] 8.1 mg/dL Critically low 8.5-10.1 [facility] Comment on above: Performed By: #### H H #### [facility] [address] [place] [address] Dr. Shilo Lam Chloride [Moles/Vol] 103 mmol/L Normal 98-107 [facility] Comment on above: Performed By: #### H H #### [facility] [address] [place] [address] Dr. Shilo Lam CO2 [Moles/Vol] 19.3 mmol/L Critically low 21.0-32.0 [facility] Comment on above: Performed By: #### H H #### [facility] [address] [address] [address] Shilo Lam Creatinine [Mass/Vol] 6.10 mg/dL Critically high 0.70-1.30 [facility] Comment on above: Performed By: #### H H #### [facility] [address] [address] [address] Shilo Lam EGFR-AF BERMUDIAN 12 mL/min/1.73m2 Critically low >=60 [facility] Comment on above: Performed By: #### H H #### [facility] [address] [place] [address] Dr. Shilo Lam EGFR-NON AF BERMUDIAN 10 mL/min/1.73m2 Critically low >=60 [facility] Comment on above: Performed By: #### H H #### [facility] [address] [place] [address] Dr. Shilo Lam Globulin (S) [Mass/Vol] 5.1 g/dL Normal [facility] Comment on above: Performed By: #### H H #### [facility] [address] [place] [address] Dr. Shilo Lam Glucose [Mass/Vol] 95 mg/dL Normal 74-106 [facility] Comment on above: Performed By: #### H H #### [facility] [address] [address] [address] Shilo Lam Potassium [Moles/Vol] 4.8 mmol/L Normal 3.5-5.1 [facility] Comment on above: Performed By: #### H H #### [facility] [address] [address] [address] Shilo Lam Protein [Mass/Vol] 7.6 g/dL Normal 6.4-8.2 [facility] Comment on above: Performed By: #### H H #### [facility] [address] [address] [address] Shilo Lam Sodium [Moles/Vol] 139 mmol/L Normal 136-145 [facility] Comment on above: Performed By: #### H H #### [facility] [address] [place] [address] Dr. Shilo Lam Urea nitrogen [Mass/Vol] 91.0 mg/dL Critically high 7.0-18.0 [facility] Comment on above: Performed By: #### H H #### [facility] [address] [place] [address] Dr. Shilo Lam Urea nitrogen/Creatinine [Mass ratio] 14.9 mg/mg Normal [facility] Comment on above: Performed By: #### H H #### [facility] [address] [place] [address] Dr. [facility] 127 mm/hr Critically high <=20 [facility] Comment on above: Performed By: #### S EDR #### [facility] [address] [place] [address] Dr. Shilo Lam PTH INTACTon 04-30-2022 PTH, Intact 81 pg/mL Critically high 15-65 [facility] Comment on above: Performed By: #### F MASSIEL #### [facility] [address] [place] [address] Dr. Shilo Lam HEMOGRAM AND PLATELon 2022 Hematocrit (Bld) [Volume fraction] 35.3 % Critically low 42.0-54.0 [facility] Comment on above: Performed By: #### H H #### [facility] [address] [place] [address] Dr. Shilo Lam Hemoglobin (Bld) [Mass/Vol] 11.0 g/dL Critically low 14.0-18.0 [facility] Comment on above: Performed By: #### H H #### [facility] [address] [place] [address] Dr. Shilo Lam MCH (RBC) [Entitic mass] 28.2 pg Normal 25.9-34.0 [facility] Comment on above: Performed By: #### H H #### [facility] [address] [address] [address] Shilo Lam MCHC (RBC) [Mass/Vol] 31.2 g/dL Normal 29.9-35.2 [facility] Comment on above: Performed By: #### H H #### [facility] [address] [place] [address] Dr. Shilo Lam MCV (RBC) [Entitic vol] 90.5 fL Normal 80.0-94.0 [facility] Comment on above: Performed By: #### H H #### [facility] [address] [place] [address] Dr. Shilo Lam PLT 161 103/ul Normal 150-450 [facility] Comment on above: Performed By: #### H H #### [facility] [address] [place] [address] Dr. Shilo Lam RBC 3.90 106/ul Critically low 4.70-6.10 [facility] Comment on above: Performed By: #### H H #### [facility] [address] [place] [address] Dr. Shilo Lam WBC 7.0 103/ul Normal 4.0-11.0 [facility] Comment on above: Performed By: #### H H #### [facility] [address] [place] [address] Dr. Shilo Lam PHOSPHORUSon 04-29-2022 Phosphate [Mass/Vol] 5.6 mg/dL Critically high 2.6-4.7 [facility] Comment on above: Performed By: #### F REELIT #### [facility] [address] [place] [address] Dr. Shilo Lam PROF 14(COMP METB)on 023 Albumin [Mass/Vol] 2.6 g/dL Critically low 3.4-5.0 [facility] Comment on above: Performed By: #### F REELIT #### [facility] [address] [place] [address] Dr. Shilo Lam Albumin/Globulin [Mass ratio] 0.5 {ratio} Normal [facility] Comment on above: Performed By: #### F REELIT #### [facility] [address] [address] [address] Shilo Lam ALP [Catalytic activity/Vol] 190 U/L Critically high 46-116 [facility] Comment on above: Performed By: #### F REELIT #### [facility] [address] [address] [address] Shilo Lam ALT [Catalytic activity/Vol] 21 U/L Normal 16-63 [facility] Comment on above: Performed By: #### F REELIT #### [facility] [address] [address] [address] Shilo Lam Anion gap [Moles/Vol] 17.3 mmol/L Normal [facility] Comment on above: Performed By: #### F REELIT #### [facility] [address] [address] [address] Shilo Lam AST [Catalytic activity/Vol] 28 U/L Normal 15-37 [facility] Comment on above: Performed By: #### F REELIT #### [facility] [address] [address] [address] Shilo Lam Bilirubin [Mass/Vol] 0.6 mg/dL Normal 0.2-1.0 [facility] Comment on above: Performed By: #### F REELIT #### [facility] [address] [address] [address] Shilo Lam Calcium [Mass/Vol] 7.8 mg/dL Critically low 8.5-10.1 [facility] Comment on above: Performed By: #### F REELIT #### [facility] [address] [address] [address] Shilo Lam Chloride [Moles/Vol] 103 mmol/L Normal 98-107 [facility] Comment on above: Performed By: #### F REELIT #### [facility] [address] [address] [address] Shilo Lam CO2 [Moles/Vol] 21.5 mmol/L Normal 21.0-32.0 [facility] Comment on above: Performed By: #### F REELIT #### [facility] [address] [address] [address] Shilo Lam Creatinine [Mass/Vol] 5.86 mg/dL Critically high 0.70-1.30 [facility] Comment on above: Performed By: #### F REELIT #### [facility] [address] [address] [address] Shilo Lam EGFR-AF BERMUDIAN 12 mL/min/1.73m2 Critically low >=60 [facility] Comment on above: Performed By: #### F REELIT #### [facility] [address] [address] [address] Shilo Lam EGFR-NON AF BERMUDIAN 10 mL/min/1.73m2 Critically low >=60 [facility] Comment on above: Performed By: #### F REELIT #### [facility] [address] [address] [address] Shilo Lam Globulin (S) [Mass/Vol] 4.8 g/dL Normal [facility] Comment on above: Performed By: #### F REELIT #### [facility] [address] [address] [address] Shilo Lam Glucose [Mass/Vol] 107 mg/dL Critically high 74-106 [facility] Comment on above: Performed By: #### F REELIT #### [facility] [address] [address] [address] Shilo Lam Potassium [Moles/Vol] 3.8 mmol/L Normal 3.5-5.1 [facility] Comment on above: Performed By: #### F REELIT #### [facility] [address] [address] [address] Shilo Lam Protein [Mass/Vol] 7.4 g/dL Normal 6.4-8.2 [facility] Comment on above: Performed By: #### F REELIT #### [facility] [address] [address] [address] Shilo Lam Sodium [Moles/Vol] 138 mmol/L Normal 136-145 [facility] Comment on above: Performed By: #### F REELIT #### [facility] [address] [place] [address] Dr. Shilo Lam Urea nitrogen [Mass/Vol] 75.0 mg/dL Critically high 7.0-18.0 [facility] Comment on above: Performed By: #### F REELIT #### [facility] [address] [place] [address] Dr. Shilo Lam Urea nitrogen/Creatinine [Mass ratio] 12.8 mg/mg Normal [facility] Comment on above: Performed By: #### F REELIT #### [facility] [address] [place] [address] Dr. Shilo Lam UA RANDOMon 04-29-2022 Bilirubin Ql (U) Negative Normal NEGATIVE [facility] Comment on above: Performed By: #### U A #### [facility] [address] [place] [address] Dr. Shilo Lam Clarity (U) CLEAR Normal CLEAR [facility] Comment on above: Performed By: #### U A #### [facility] [address] [place] [address] Dr. Shilo Lam Color (U) LT. YELLOW Normal YELLOW [facility] Comment on above: Performed By: #### U A #### [facility] [address] [place] [address] Dr. Shilo Lam Glucose Ql (U) Negative Normal NEGATIVE [facility] Comment on above: Performed By: #### U A #### [facility] [address] [place] [address] Dr. Shilo Lam Hemoglobin Ql (U) Negative Normal NEGATIVE [facility] Comment on above: Performed By: #### U A #### [facility] [address] [place] [address] Dr. Shilo Lam Ketones Ql (U) Negative Normal NEGATIVE [facility] Comment on above: Performed By: #### U A #### [facility] [address] [place] [address] Dr. Shilo Lam LEUKOCYTES Negative Normal NEGATIVE [facility] Comment on above: Performed By: #### U A #### [facility] [address] [place] [address] Dr. Shilo Lam Nitrite Ql (U) Negative Normal NEGATIVE [facility] Comment on above: Performed By: #### U A #### [facility] [address] [place] [address] Dr. Shilo Lam pH (U) 5.5 [pH] Normal 5-9 [facility] Comment on above: Performed By: #### U A #### [facility] [address] [place] [address] Dr. Shilo Lam SPEC GRAVITY 1.020 Normal 1.005-<=1.025 [facility] Comment on above: Performed By: #### U A #### [facility] [address] [place] [address] Dr. Shilo Lam UA PROTEIN 300 mg/dl Abnormal NEGATIVE/ TRACE [facility] Comment on above: Performed By: #### U A #### [facility] [address] [place] [address] Dr. Shilo Lam Urobilinogen Qn (U) 0.2 {Gama'U}/dL Normal 0.2 - 1. 0 [facility] Comment on above: Performed By: #### U A #### [facility] [address] [place] [address] Dr. Shilo Lam URINE T PROTEIN CREAT RATIOo n 04-29-2022 Protein (U) [Mass/Vol] 210.0 mg/dL Critically high <=12.0 [facility] Comment on above: Performed By: #### H H #### [facility] [address] [place] [address] Dr. Shilo Lam UR PROT CREAT RAT 5.36 Normal [facility] Comment on above: Performed By: #### H H #### [facility] [address] [place] [address] Dr. Shilo Lam URINE CREAT 39.20 mg/dL Normal 20.00-300.00 [facility] Comment on above: Performed By: #### H H #### [facility] [address] [address] [address] Shilo Lam VITAMIN D 25 OHon 04-29-2022 VIT D 25-OH 18.9 ng/mL Normal [facility] Comment on above: Performed By: #### F ALTONT #### [facility] [address] [place] [address] Dr. Shilo Lam VIT D RANGES SEE BELOW Normal [facility] Comment on above: Result Comment: <20 ng/mL Vit D deficient 20 - <30 ng/mL Vit D insufficient 30 - 100 ng/mL Vit D sufficient >100 ng/mL Potential Toxicity Performed By: #### F ALTONT #### [facility] [address] [address] [address] Shilo Lam CBC W Auto Differential pane l (Bld)on 04-16-2022 Basophils (Bld) [#/Vol] 0.03 10*3/uL Normal <0.11 [facility] Comment on above: Order Comment: Speci men Type: BLOOD SPECIMENOrdering Facility: [facility] Address: [address] [address] Performed By: #### 5 7021-8 ####[facility] LABIA [id number] [place] [address] Basophils/100 WBC (Bld) 0.5 % Normal [facility] Comment on above: Order Comment: Speci men Type: BLOOD SPECIMENOrdering Facility: [facility] Address: [address] [place] [address] Performed By: #### 5 7021-8 ####[facility] LABCLIA [id number] [place] [address] Differential cell count method Nom (Bld) Auto Normal [facility] Comment on above: Order Comment: Speci men Type: BLOOD SPECIMENOrdering Facility: [facility] Address: [address] [place] [address] Performed By: #### 5 7021-8 ####[facility] LABCLIA [id number] [place] [address] Eosinophils (Bld) [#/Vol] 0.08 10*3/uL Normal <0.46 [facility] Comment on above: Order Comment: Speci men Type: BLOOD SPECIMENOrdering Facility: [facility] Address: [address] [place] [address] Performed By: #### 5 7021-8 ####[facility] LABCLIA [id number] [place] [address] Eosinophils/100 WBC (Bld) 1.4 % Normal [facility] Comment on above: Order Comment: Speci men Type: BLOOD SPECIMENOrdering Facility: [facility] Address: [address] [place] [address] Performed By: #### 5 7021-8 ####[facility] LABCLIA [id number] [place] [address] Erythrocyte distribution width (RBC) [Ratio] 13.3 % Normal 11.5-15.0 [facility] Comment on above: Order Comment: Speci men Type: BLOOD SPECIMENOrdering Facility: [facility] Address: [address] [place] [address] Performed By: #### 5 7021-8 ####[facility] LABCLIA [id number] [place] [address] Hematocrit (Bld) [Volume fraction] 32.2 % Low 39.0-51.0 [facility] Comment on above: Order Comment: Speci men Type: BLOOD SPECIMENOrdering Facility: [facility] Address: [address] [place] [address] Performed By: #### 5 7021-8 ####[facility] LABCLIA [id number] [place] [address] Hemoglobin (Bld) [Mass/Vol] 10.5 g/dL Low 13.0-17.0 [facility] Comment on above: Order Comment: Speci men Type: BLOOD SPECIMENOrdering Facility: [facility] Address: [address] [address] Performed By: #### 5 7021-8 ####[facility] LABCLIA [id number] [place] [address] Immature granulocytes (Bld) [#/Vol] 10*3/uL Normal <0.10 [facility] Comment on above: Order Comment: Speci men Type: BLOOD SPECIMENOrdering Facility: [facility] Address: [address] [address] Performed By: #### 5 7021-8 ####[facility] LABCLIA [id number] [place] [address] Immature granulocytes/100 WBC (Bld) 0.2 % Normal [facility] Comment on above: Order Comment: Speci men Type: BLOOD SPECIMENOrdering Facility: [facility] Address: [address] [address] Performed By: #### 5 7021-8 ####[facility] LABCLIA [id number] [place] [address] Lymphocytes (Bld) [#/Vol] 0.64 10*3/uL Low 1.00-4.00 [facility] Comment on above: Order Comment: Speci men Type: BLOOD SPECIMENOrdering Facility: [facility] Address: [address] [place] [address] Performed By: #### 5 7021-8 ####[facility] LABCLIA [id number] [place] [address] Lymphocytes/100 WBC (Bld) 11.0 % Normal [facility] Comment on above: Order Comment: Speci men Type: BLOOD SPECIMENOrdering Facility: [facility] Address: [address] [place] [address] Performed By: #### 5 7021-8 ####[facility] LABCLIA [id number] [place] [address] MCH (RBC) [Entitic mass] 29.0 pg Normal 26.0-34.0 [facility] Comment on above: Order Comment: Speci men Type: BLOOD SPECIMENOrdering Facility: [facility] Address: [address] [place] [address] Performed By: #### 5 7021-8 ####[facility] LABCLIA [id number] [place] [address] MCHC (RBC) [Mass/Vol] 32.6 g/dL Normal 30.5-36.0 [facility] Comment on above: Order Comment: Speci men Type: BLOOD SPECIMENOrdering Facility: [facility] Address: [address] [address] Performed By: #### 5 7021-8 ####[facility] LABCLIA [id number] [place] [address] MCV (RBC) [Entitic vol] 89.0 fL Normal 80.0-100.0 [facility] Comment on above: Order Comment: Speci men Type: BLOOD SPECIMENOrdering Facility: [facility] Address: [address] [place] [address] Performed By: #### 5 7021-8 ####[facility] LABCLIA [id number] [place] [address] Monocytes (Bld) [#/Vol] 0.62 10*3/uL Normal <0.87 [facility] Comment on above: Order Comment: Speci men Type: BLOOD SPECIMENOrdering Facility: [facility] Address: [address] [address] Performed By: #### 5 7021-8 ####[facility] LABIA [id number] [place] [address] Monocytes/100 WBC (Bld) 10.7 % Normal [facility] Comment on above: Order Comment: Speci men Type: BLOOD SPECIMENOrdering Facility: [facility] Address: [address] [place] [address] Performed By: #### 5 7021-8 ####[facility] LABCLIA [id number] [place] [address] Neutrophils (Bld) [#/Vol] 4.44 10*3/uL Normal 1.45-7.50 [facility] Comment on above: Order Comment: Speci men Type: BLOOD SPECIMENOrdering Facility: [facility] Address: [address] [place] [address] Performed By: #### 5 7021-8 ####[facility] LABCLIA [id number] [place] [address] Neutrophils/100 WBC (Bld) 76.2 % Normal [facility] Comment on above: Order Comment: Speci men Type: BLOOD SPECIMENOrdering Facility: [facility] Address: [address] [place] [address] Performed By: #### 5 7021-8 ####[facility] LABCLIA [id number] [place] [address] Nucleated RBC (Bld) [#/Vol] 10*3/uL Normal <0.01 [facility] Comment on above: Order Comment: Speci men Type: BLOOD SPECIMENOrdering Facility: [facility] Address: [address] [place] [address] Performed By: #### 5 7021-8 ####[facility] LABCLIA [id number] [place] [address] Nucleated RBC/100 WBC (Bld) [Ratio] 0.0 /100 WBC Normal [facility] Comment on above: Order Comment: Speci men Type: BLOOD SPECIMENOrdering Facility: [facility] Address: [address] [place] [address] Performed By: #### 5 7021-8 ####[facility] LABCLIA [id number] [place] [address] Platelet mean volume (Bld) [Entitic vol] 11.5 fL Normal 9.0-12.7 [facility] Comment on above: Order Comment: Speci men Type: BLOOD SPECIMENOrdering Facility: [facility] Address: [address] [place] [address] Performed By: #### 5 7021-8 ####[facility] LABIA [id number] [place] [address] Platelets (Bld) [#/Vol] 136 10*3/uL Low 150-400 [facility] Comment on above: Order Comment: Speci men Type: BLOOD SPECIMENOrdering Facility: [facility] Address: [address] [place] [address] Performed By: #### 5 7021-8 ####[facility] [id number] [place] [address] RBC (Bld) [#/Vol] 3.62 10*6/uL Low 4.20-6.00 [facility] Comment on above: Order Comment: Speci men Type: BLOOD SPECIMENOrdering Facility: [facility] Address: [address] [place] [address] Performed By: #### 5 7021-8 ####[facility] [id number] [place] [address] WBC (Bld) [#/Vol] 5.82 10*3/uL Normal 3.70-11.00 [facility] Comment on above: Order Comment: Speci men Type: BLOOD SPECIMENOrdering Facility: [facility] Address: [address] [place] [address] Performed By: #### 5 7021-8 ####[facility] [id number] [place] [address] CNOVSPon 04-16-2022 CNOVS Visit (SP) Office ([place]) GOPAL YATES JR ([id number]) 1965 M Date Time Provider Department 04/16/22 3:30 PM MONIK DOTSON During your visit today, we recorded the following information about you: Temperature Pulse Respiration Blood pressure 97 degrees 59/minute 18/minute 136/61 Weight Height 89.8 kg 1.93 m Monik Dotson APRN.GLOBAL CLIMATE CHANGE RESEARCHER 04/16/2022 3:56 PM Signed NAME: Gopal Yates CLINIC NO.: [id number] DATE OF SERVICE: April 16, 2022 (Imer) Some elements in this clinic note that are critical to medical decision making have been carefully reviewed and included from a prior clinic note dated: February 18, 2022. (Dr. Rojas) Referring Provider: Dr. Douglas Juárez Additional Clinicians involved in Gopal Yates JR's care: DIAGNOSIS: Elevated [place]: Lambda light chains CKD induced anemia ASSESSMENT: 56 year old gentleman with longstanding and poorly controlled T2DM and HTN with renal failure. CKD induced anemia underwent lab workup for possible underlying primary marrow conditions that were negative. PLAN: Aranesp today and every 4 weeks. Labs prior to treatment. Labs in 4 weeks to include iron, B12 and folate. Okay to stop oral iron due to normal iron levels from 03/18/2022. Follow up in 8 weeks for labs and possible Aranesp. Follow up with Dr. Juárez for TSH 0.8. CURRENT TREATMENT: 12/04/2020 Aranesp 200 mcg initiated. - HPI: CASE HISTORY: reverse chronological order October 2021 finished IV iron with nephrology. Updated Visit, April 16, 2022: Gopal Yates JR returns for follow-up and possible Aranesp. His last Aranesp 200 mcg injection was on 03/18/2022. Since his last visit there has been no significant medical changes. He denies abnormal bleeding and bruising. He remains on 1 oral iron pill daily. He denies constipation and GI upset. He is scheduled to see nephrology 05/05/2022. He thinks at that appointment he will be told he will need to start dialysis. He offers no new complaints today. No new issues, problems or concerns. Updated Visit, February 18, 2022: Gopal is feeling good. Here with Eneida. Hgb improving on current regimen. TSH suppressed. - defer to Dr. Juárez. Updated Visit, January 14, 2022: Gopal Yates JR returns for follow-up. His last Aranesp injection of 200 mcg was on 11/19/2021. He states that he is still tired and cold. Since the Aranesp injections he has been a little more energetic. He states that the iron infusions did not help at all. He denies bleeding and abnormal bruising. 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 Overall, he is doing well today. Updated Visit, December 17, 2021: Gopal returns and has significant improvement in anemia. Will not need Epo this time around. It has been 4 weeks. Anticipate he will be fine for at least another 4 weeks. Fatigue and feeling cold is unchanged. Otherwise doing well. Updated Visit, December 03, 2021: Gopal Yates JR returns today for follow-up. Aranesp 200 mcg initiated on 10/22/2021. To date, he has had 3 Aranesp injections. He still complains of feeling cold and tired. He denies any signs of bleeding. He states that he has completed 5 doses of IV iron at [facility] [place] [place]. Initial Visit, October 02, 2021: Gopal Yates JR presents today Hematology and Oncology evaluation. He is a 56 year old male who has a chronic history of T2DM and HTN. He has neuropathy and Renal failure as well as anemia that is most likely associated. Cold and fatigued and weak. 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 - REVIEW OF SYSTEMS Per HPI and otherwise negative by full review of organ systems. - ECOG PERFORMANCE STATUS: 0 PHYSICAL EXAMINATION: Vitals: BP 136/61 Pulse 59 Temp (Src) 97 (Temporal) Resp 18 Ht 6' 3.984 (1.93m) Wt 198 lb (89.8kg) SpO2 95% BMI 24.11 kg/(m2). Body surface area is 2.19 meters squared. Exam limited to gross visualization where appropriate due to COVID-19. Gen.: This is an age-appropriate patient in no acute distress. Head: Appears atraumatic with no visible lesions. Eyes: Pupils equally round and reactive to light, extraocular muscles are intact. Neck: Supple. Mouth: Masked. Respiratory: Appears to be respiring comfortably. Neurologic: Nonfocal to gross visualization. Alert and oriented ?3. Psychiatric: No evidence of inappropriate anxiety or depression. Skin: Visible areas of skin without rash, lesions, wounds or petechiae. - ALLERGIES: ALLERGIES Allergen Reactions Sulfa (Sulfonamide * Unknown MEDICA (more content not included)... Normal [facility] Comprehensive metabolic 2000 panelon 04-16-2022 Albumin [Mass/Vol] 3.7 g/dL Low 3.9-4.9 [facility] Comment on above: Order Comment: Speci men Type: BLOOD SPECIMEN Ordering Facility: [facility] Address: [address] [place], [place] [address] [address] Performed By: #### 2 4323-8 #### [facility] CLIA [id number] [address] [place] [address] ALP [Catalytic activity/Vol] 195 U/L High 38-113 [facility] Comment on above: Order Comment: Speci men Type: BLOOD SPECIMEN Ordering Facility: [facility] Address: [address] [address] Performed By: #### 2 4323-8 #### [facility] CLIA [id number] [address] [place] [address] ALT [Catalytic activity/Vol] 20 U/L Normal 10-54 [facility] Comment on above: Order Comment: Speci men Type: BLOOD SPECIMEN Ordering Facility: [facility] Address: [address] [place] [address] Performed By: #### 2 4323-8 #### [facility] CLIA [id number] [address] [place] [address] Anion gap [Moles/Vol] 13 mmol/L Normal 9-18 [facility] Comment on above: Order Comment: Speci men Type: BLOOD SPECIMEN Ordering Facility: [facility] Address: [address] [place] [address] Performed By: #### 2 4323-8 #### [facility] CLIA [id number] [address] [place] [address] AST [Catalytic activity/Vol] 16 U/L Normal 14-40 [facility] Comment on above: Order Comment: Speci men Type: BLOOD SPECIMEN Ordering Facility: [facility] Address: [address] [address] Performed By: #### 2 4323-8 #### [facility] CLIA [id number] [address] [place] [address] Bilirubin [Mass/Vol] 0.5 mg/dL Normal 0.2-1.3 [facility] Comment on above: Order Comment: Speci men Type: BLOOD SPECIMEN Ordering Facility: [facility] Address: [address] Performed By: #### 2 4323-8 #### [facility] CLIA [id number] [address] [place] [address] Calcium [Mass/Vol] 8.1 mg/dL Low 8.5-10.2 [facility] Comment on above: Order Comment: Speci men Type: BLOOD SPECIMEN Ordering Facility: [facility] Address: [address] [address] Performed By: #### 2 4323-8 #### [facility] CLIA [id number] [address] [place] [address] Chloride [Moles/Vol] 112 mmol/L High 97-105 [facility] Comment on above: Order Comment: Speci men Type: BLOOD SPECIMEN Ordering Facility: [facility] Address: [address] [address] Performed By: #### 2 4323-8 #### [facility] CLIA [id number] [address] [place] [address] CO2 [Moles/Vol] 17 mmol/L Low 22-30 [facility] Comment on above: Order Comment: Speci men Type: BLOOD SPECIMEN Ordering Facility: [facility] Address: [address] [address] Performed By: #### 2 4323-8 #### [facility] CLIA [id number] [address] [place] [address] Creatinine [Mass/Vol] 4.53 mg/dL High 0.73-1.22 [facility] Comment on above: Order Comment: Speci men Type: BLOOD SPECIMEN [facility]ing [facility] Address: [address] [address] Performed By: #### 2 4323-8 #### [facility] CLIA [id number] [address] [place] [address] ESTIMATED GLOMERULAR FILTRATION RATE 14 mL/min/1.73m??? Low >=60 [facility] Comment on above: Order Comment: Fabi mcdonnell Type: BLOOD SPECIMEN Ordering Facility: [facility] Address: [address] [id number] Result Comment: Trixie mated Glomerular Filtration Rate (eGFR) is calculated using the 2020 CKD-EPI creatinine equation. This equation utilizes serum creatinine, sex, and age as parameters. The creatinine assay has traceable calibration to isotope dilution-mass spectrometry. Refer to KDIGO guidelines for clinical interpretation. In patients with unstable renal function, e.g. those with acute kidney injury, the eGFR may not accurately reflect actual GFR. Performed By: #### 2 4323-8 #### [facility] CLIA [id number] [address] [place] [address] Glucose [Mass/Vol] 146 mg/dL High 74-99 [facility] Comment on above: Order Comment: Fabi mcdonnell Type: BLOOD SPECIMEN Ordering Facility: [facility] Address: [address] [address] Result Comment: The [place] Diabetes [employer] (ADA) provides guidance for cutoff values for fasting glucose and random glucose. The ADA defines fasting as no caloric intake for at least 8 hours. Fasting plasma glucose results between 100 to 125 mg/dL indicate increased risk for diabetes (prediabetes). Fasting plasma glucose results greater than or equal to 126 mg/dL meet the criteria for diagnosis of diabetes. In the absence of unequivocal hyperglycemia, results should be confirmed by repeat testing. In a patient with classic symptoms of hyperglycemia or hyperglycemic crisis, random plasma glucose results greater than or equal to 200 mg/dL meet the criteria for diagnosis of diabetes. Reference: Standards of Medical Care in Diabetes 2016, [place] [employer]. Diabetes Care. 2016.39(Suppl 1). Performed By: #### 2 4323-8 #### [facility] CLIA [id number] [address] [place] [address] Potassium [Moles/Vol] 4.2 mmol/L Normal 3.7-5.1 [facility] Comment on above: Order Comment: Fabi mcdonnell Type: BLOOD SPECIMEN Ordering Facility: [facility] Address: [address] [id number] Performed By: #### 2 4323-8 #### [facility] CLIA [id number] [address] [place] [address] Protein [Mass/Vol] 7.0 g/dL Normal 6.3-8.0 [facility] Comment on above: Order Comment: Speci men Type: BLOOD SPECIMEN Ordering [facility] Address: [address] [address] Performed By: #### 2 4323-8 #### [facility] CLIA [id number] [address] [place] [address] Sodium [Moles/Vol] 142 mmol/L Normal 136-144 [facility] Comment on above: Order Comment: Speci men Type: BLOOD SPECIMEN Ordering Facility: [facility] Address: [address] [address] Performed By: #### 2 4323-8 #### [facility] CLIA [id number] [address] [place] [address] Urea nitrogen [Mass/Vol] 81 mg/dL High 9-24 [facility] Comment on above: Order Comment: Speci men Type: BLOOD SPECIMEN [facility] Address: [address] [place] [address] Performed By: #### 2 4323-8 #### [facility] CLIA [id number] [address] [place] [address] CBC W Auto Differential pane l (Bld)on 03-18-2022 Basophils (Bld) [#/Vol] 10*3/uL Normal <0.11 [facility] Comment on above: Order Comment: Speci men Type: BLOOD SPECIMENOrdering Facility: [facility] Address: [address] [place] [address] Performed By: #### 5 7021-8 ####[facility] [id number] [place] [address] Basophils/100 WBC (Bld) 0.4 % Normal [facility] Comment on above: Order Comment: Speci men Type: BLOOD SPECIMENOrdering Facility: [facility] Address: [address] [place] [address] Performed By: #### 5 7021-8 ####[facility] [id number] [place] [address] Differential cell count method Nom (Bld) Auto Normal [facility] Comment on above: Order Comment: Speci men Type: BLOOD SPECIMENOrdering Facility: [facility] Address: [address] [place] [address] Performed By: #### 5 7021-8 ####[facility] [id number] [place] [address] Eosinophils (Bld) [#/Vol] 0.11 10*3/uL Normal <0.46 [facility] Comment on above: Order Comment: Speci men Type: BLOOD SPECIMENOrdering Facility: [facility] Address: [address] [place] [address] Performed By: #### 5 7021-8 ####[facility] [id number] [place] [address] Eosinophils/100 WBC (Bld) 2.2 % Normal [facility] Comment on above: Order Comment: Speci men Type: BLOOD SPECIMENOrdering Facility: [facility] Address: [address] [place] [address] Performed By: #### 5 7021-8 ####[facility] [id number] [place] [address] Erythrocyte distribution width (RBC) [Ratio] 14.6 % Normal 11.5-15.0 [facility] Comment on above: Order Comment: Speci men Type: BLOOD SPECIMENOrdering Facility: [facility] Address: [address] [place] [address] Performed By: #### 5 7021-8 ####[facility] [id number] [place] [address] Hematocrit (Bld) [Volume fraction] 31.4 % Low 39.0-51.0 [facility] Comment on above: Order Comment: Speci men Type: BLOOD SPECIMENOrdering Facility: [facility] Address: [address] [place] [address] Performed By: #### 5 7021-8 ####[facility] [id number] [place] [address] Hemoglobin (Bld) [Mass/Vol] 10.0 g/dL Low 13.0-17.0 [facility] Comment on above: Order Comment: Speci men Type: BLOOD SPECIMENOrdering Facility: [facility] Address: [address] [place] [address] Performed By: #### 5 7021-8 ####[facility] [id number] [place] [address] Immature granulocytes (Bld) [#/Vol] 10*3/uL Normal <0.10 [facility] Comment on above: Order Comment: Speci men Type: BLOOD SPECIMENOrdering Facility: [facility] Address: [address] [place] [address] Performed By: #### 5 7021-8 ####[facility] [id number] [place] [address] Immature granulocytes/100 WBC (Bld) 0.2 % Normal [facility] Comment on above: Order Comment: Speci men Type: BLOOD SPECIMENOrdering Facility: [facility] Address: [address] [place] [address] Performed By: #### 5 7021-8 ####[facility] [id number] [place] [address] Lymphocytes (Bld) [#/Vol] 0.68 10*3/uL Low 1.00-4.00 [facility] Comment on above: Order Comment: Speci men Type: BLOOD SPECIMENOrdering Facility: [facility] Address: [address] [place] [address] Performed By: #### 5 7021-8 ####[facility]IA [id number] [place] [address] Lymphocytes/100 WBC (Bld) 13.4 % Normal [facility] Comment on above: Order Comment: Speci men Type: BLOOD SPECIMENOrdering Facility: [facility] Address: [address] [place] [address] Performed By: #### 5 7021-8 ####[facility]IA [id number] [place] [address] MCH (RBC) [Entitic mass] 28.4 pg Normal 26.0-34.0 [facility] Comment on above: Order Comment: Speci men Type: BLOOD SPECIMENOrdering Facility: [facility] Address: [address] [place] [address] Performed By: #### 5 7021-8 ####[facility]IA [id number] [place] [address] MCHC (RBC) [Mass/Vol] 31.8 g/dL Normal 30.5-36.0 [facility] Comment on above: Order Comment: Speci men Type: BLOOD SPECIMENOrdering Facility: [facility] Address: [address] [place] [address] Performed By: #### 5 7021-8 ####[facility]CLIA [id number] [place] [address] MCV (RBC) [Entitic vol] 89.2 fL Normal 80.0-100.0 [facility] Comment on above: Order Comment: Speci men Type: BLOOD SPECIMENOrdering Facility: [facility] Address: [address] [place] [address] Performed By: #### 5 7021-8 ####[facility]IA [id number] [place] [address] Monocytes (Bld) [#/Vol] 0.67 10*3/uL Normal <0.87 [facility] Comment on above: Order Comment: Speci men Type: BLOOD SPECIMENOrdering Facility: [facility] Address: [address] [address] Performed By: #### 5 7021-8 ####[facility] [id number] [place] [address] Monocytes/100 WBC (Bld) 13.2 % Normal [facility] Comment on above: Order Comment: Speci men Type: BLOOD SPECIMENOrdering Facility: [facility] Address: [address] [address] Performed By: #### 5 7021-8 ####[facility] [id number] [place] [address] Neutrophils (Bld) [#/Vol] 3.60 10*3/uL Normal 1.45-7.50 [facility] Comment on above: Order Comment: Speci men Type: BLOOD SPECIMENOrdering Facility: [facility] Address: [address] [address] Performed By: #### 5 7021-8 ####[facility]IA [id number] [place] [address] Neutrophils/100 WBC (Bld) 70.6 % Normal [facility] Comment on above: Order Comment: Speci men Type: BLOOD SPECIMENOrdering Facility: [facility] Address: [address] [address] Performed By: #### 5 7021-8 ####[facility]CLIA [id number] [place] [address] Nucleated RBC (Bld) [#/Vol] 10*3/uL Normal <0.01 [facility] Comment on above: Order Comment: Speci men Type: BLOOD SPECIMENOrdering Facility: [facility] Address: [address] [address] Performed By: #### 5 7021-8 ####[facility]CLIA [id number] [place] [address] Nucleated RBC/100 WBC (Bld) [Ratio] 0.0 /100 WBC Normal [facility] Comment on above: Order Comment: Speci men Type: BLOOD SPECIMENOrdering Facility: [facility] Address: [address] [place] [address] Performed By: #### 5 7021-8 ####[facility]CLIA [id number] [place] [address] Platelet mean volume (Bld) [Entitic vol] 10.7 fL Normal 9.0-12.7 [facility] Comment on above: Order Comment: Speci men Type: BLOOD SPECIMENOrdering Facility: [facility] Address: [address] [place] [address] Performed By: #### 5 7021-8 ####[facility]IA [id number] [place] [address] Platelets (Bld) [#/Vol] 130 10*3/uL Low 150-400 [facility] Comment on above: Order Comment: Speci men Type: BLOOD SPECIMENOrdering Facility: [facility] Address: [address] [place] [address] Performed By: #### 5 7021-8 ####[facility]CLIA [id number] [place] [address] RBC (Bld) [#/Vol] 3.52 10*6/uL Low 4.20-6.00 [facility] Comment on above: Order Comment: Speci men Type: BLOOD SPECIMENOrdering Facility: [facility] Address: [address] [place] [address] Performed By: #### 5 7021-8 ####[facility]CLIA [id number] [place] [address] WBC (Bld) [#/Vol] 5.09 10*3/uL Normal 3.70-11.00 [facility] Comment on above: Order Comment: Speci men Type: BLOOD SPECIMENOrdering Facility: [facility] Address: [address] [place] [address] Performed By: #### 5 7021-8 ####[facility]CLIA [id number] [place] [address] Comprehensive metabolic 2000 panelon 03-18-2022 Albumin [Mass/Vol] 3.5 g/dL Low 3.9-4.9 [facility] Comment on above: Order Comment: Speci men Type: BLOOD SPECIMENOrdering Facility: [facility] Address: [address] [place] [address] Performed By: #### 2 4323-8 ####[facility]CLIA [id number] [place] [address] ALP [Catalytic activity/Vol] 154 U/L High 38-113 [facility] Comment on above: Order Comment: Speci men Type: BLOOD SPECIMENOrdering Facility: [facility] Address: [address] [address] Performed By: #### 2 4323-8 ####[facility]CLIA [id number] [place] [address] ALT [Catalytic activity/Vol] 15 U/L Normal 10-54 [facility] Comment on above: Order Comment: Speci men Type: BLOOD SPECIMENOrdering Facility: [facility] Address: [address] [address] Performed By: #### 2 4323-8 ####[facility]CLIA [id number] [place] [address] Anion gap [Moles/Vol] 11 mmol/L Normal 9-18 [facility] Comment on above: Order Comment: Speci men Type: BLOOD SPECIMENOrdering Facility: [facility] Address: [address] [address] Performed By: #### 2 4323-8 ####[facility]CLIA [id number] [place] [address] AST [Catalytic activity/Vol] 16 U/L Normal 14-40 [facility] Comment on above: Order Comment: Speci men Type: BLOOD SPECIMENOrdering Facility: [facility] Address: [address] [place] [address] Performed By: #### 2 4323-8 ####[facility]CLIA [id number] [place] [address] Bilirubin [Mass/Vol] 0.5 mg/dL Normal 0.2-1.3 [facility] Comment on above: Order Comment: Speci men Type: BLOOD SPECIMENOrdering Facility: [facility] Address: [address] [place] [address] Performed By: #### 2 4323-8 ####[facility]CLIA [id number] [place] [address] Calcium [Mass/Vol] 8.5 mg/dL Normal 8.5-10.2 [facility] Comment on above: Order Comment: Speci men Type: BLOOD SPECIMENOrdering Facility: [facility] Address: [address] [place] [address] Performed By: #### 2 4323-8 ####[facility]CLIA [id number] [place] [address] Chloride [Moles/Vol] 114 mmol/L High 97-105 [facility] Comment on above: Order Comment: Speci men Type: BLOOD SPECIMENOrdering Facility: [facility] Address: [address] [place] [address] Performed By: #### 2 4323-8 ####[facility]CLIA [id number] [place] [address] CO2 [Moles/Vol] 18 mmol/L Low 22-30 [facility] Comment on above: Order Comment: Speci men Type: BLOOD SPECIMENOrdering Facility: [facility] Address: [address] [address] Performed By: #### 2 4323-8 ####[facility]CLIA [id number] [place] [address] Creatinine [Mass/Vol] 4.59 mg/dL High 0.73-1.22 [facility] Comment on above: Order Comment: Speci men Type: BLOOD SPECIMENOrdering Facility: [facility] Address: [address] [address] Performed By: #### 2 4323-8 ####[facility]CLIA [id number] [place] [address] ESTIMATED GLOMERULAR FILTRATION RATE 14 mL/min/1.73m??? Low >=60 [facility] Comment on above: Order Comment: Speci men Type: BLOOD SPECIMENOrdering Facility: [facility] Address: [address] [place] [address] Result Comment: Trixie mated Glomerular Filtration Rate (eGFR) is calculated using the 2020 CKD-EPI creatinine equation. This equation utilizes serum creatinine, sex, and age as parameters. The creatinine assay has traceable calibration to isotope dilution-mass spectrometry. Refer to KDIGO guidelines for clinical interpretation. In patients with unstable renal function, e.g. those with acute kidney injury, the eGFR may not accurately reflect actual GFR. Performed By: #### 2 4323-8 ####[facility]CLIA [id number] [place] [address] Glucose [Mass/Vol] 86 mg/dL Normal 74-99 [facility] Comment on above: Order Comment: Speci men Type: BLOOD SPECIMENOrdering Facility: [facility] Address: [address] [place] [address] Result Comment: The [place] [employer] (ADA) provides guidance for cutoff values for fasting glucose and random glucose. The ADA defines fasting as no caloric intake for at least 8 hours. Fasting plasma glucose results between 100 to 125 mg/dL indicate increased risk for diabetes (prediabetes). Fasting plasma glucose results greater than or equal to 126 mg/dL meet the criteria for diagnosis of diabetes. In the absence of unequivocal hyperglycemia, results should be confirmed by repeat testing. In a patient with classic symptoms of hyperglycemia or hyperglycemic crisis, random plasma glucose results greater than or equal to 200 mg/dL meet the criteria for diagnosis of diabetes. Reference: Standards of Medical Care in Diabetes 2016, [place] [employer]. Diabetes Care. 2016.39(Suppl 1). Performed By: #### 2 4323-8 ####[facility]CLIA [id number] [place] [address] Potassium [Moles/Vol] 4.4 mmol/L Normal 3.7-5.1 [facility] Comment on above: Order Comment: Speci men Type: BLOOD SPECIMENOrdering Facility: [facility] Address: [address] [place] [address] Performed By: #### 2 4323-8 ####[facility]CLIA [id number] [place] [address] Protein [Mass/Vol] 6.8 g/dL Normal 6.3-8.0 [facility] Comment on above: Order Comment: Speci men Type: BLOOD SPECIMENOrdering Facility: [facility] Address: [address] [place] [address] Performed By: #### 2 4323-8 ####[facility]CLIA [id number] [place] [address] Sodium [Moles/Vol] 143 mmol/L Normal 136-144 [facility] Comment on above: Order Comment: Speci men Type: BLOOD SPECIMENOrdering Facility: [facility] Address: [address] [place] [address] Performed By: #### 2 4323-8 ####[facility]CLIA [id number] [place] [address] Urea nitrogen [Mass/Vol] 74 mg/dL High 9-24 [facility] Comment on above: Order Comment: Speci men Type: BLOOD SPECIMENOrdering Facility: [facility] Address: [address] [place] [address] [place] [address] Performed By: #### 2 4323-8 ####[facility]CLIA [id number] [place] [address] Ferritin SerPl-[facility] Foundationon 2021 Ferritin [Mass/Vol] 508.0 ng/mL Normal 30.3-565.7 [facility] Comment on above: Order Comment: Speci men Type: BLOOD SPECIMENOrdering Facility: [facility] Address: [address] [address] Performed By: #### 2 284-8, 6-4, 2131-9, 44447-3 ####[facility] LABCLIA [id number] [place] [address] [place] Folate SerPl-[facility] Foundationon 03-18-20 Folate [Mass/Vol] 8.1 ng/mL Normal >4.7 [facility] Comment on above: Order Comment: Speci men Type: BLOOD SPECIMENOrdering Facility: [facility] Address: [address] Performed By: #### 2 284-8, 6-4, 9, 23753-6 ####[facility] LABCLIA [id number] [place] [address] [place] [employer] capaci ty panelon 03-18-2022 Iron [Mass/Vol] 63 ug/dL Normal 41-186 [facility] Comment on above: Order Comment: Speci men Type: BLOOD SPECIMENOrdering Facility: [facility] Address: [address] Performed By: #### 2 284-8, 2276-4, 9, 32479-8 ####[facility] LABCLIA [id number] [place] [address] [place] Iron binding capacity [Mass/Vol] 204 ug/dL Low 232-386 [facility] Comment on above: Order Comment: Speci men Type: BLOOD SPECIMENOrdering Facility: [facility] Address: [address] [address] Performed By: #### 2 284-8, 6-4, 2131-11, 22527-5 ####[facility] LABCLIA [id number] [place] [address] [place] Iron/TIBC [Molar ratio] 30.9 % Normal 15.0-57.0 [facility] Comment on above: Order Comment: Speci men Type: BLOOD SPECIMENOrdering Facility: [facility] Address: [address] [address] Performed By: #### 2 284-8, 6-4, 2131-11, 60360-3 ####[facility] LABCLIA [id number] [place] [address] [place] PTH INTACTon 03-18-2022 PTH, Intact 68 pg/mL Critically high 15-65 [facility] Comment on above: Performed By: #### H H #### [facility] [address] [place] [address] Dr. Shilo Lam Vit B12 SerPl-ncon 022 Cobalamin (Vitamin B12) [Mass/Vol] 670 pg/mL Normal 232-1245 [facility] Comment on above: Order Comment: Speci men Type: BLOOD SPECIMENOrdering Facility: [facility] Address: [address] Performed By: #### 2 284-8, 6-4, 9, 72916-9 ####[facility] LABCLIA [id number] [place] [address] [place] FERRITINon 03-17-2022 Ferritin [Mass/Vol] 493.0 ng/mL Critically high 26.0-388.0 [facility] Comment on above: Performed By: #### V ITAD, FERR, FETIBC, B12FOL #### [facility] [address] [place] [address] Dr. Shilo Lam HEMOGRAM AND PLATELon 2021 Hematocrit (Bld) [Volume fraction] 32.7 % Critically low 42.0-54.0 [facility] Comment on above: Performed By: #### V ITAD, FERR, FETIBC, B12FOL #### [facility] [address] [place] [address] Dr. Shilo Lam Hemoglobin (Bld) [Mass/Vol] 10.7 g/dL Critically low 14.0-18.0 [facility] Comment on above: Performed By: #### V ITAD, FERR, FETIBC, B12FOL #### [facility] [address] [place] [address] Dr. Shilo Lam MCH (RBC) [Entitic mass] 28.7 pg Normal 25.9-34.0 [facility] Comment on above: Performed By: #### V ITAD, FERR, FETIBC, B12FOL #### [facility] [address] [place] [address] Dr. Shilo Lam MCHC (RBC) [Mass/Vol] 32.7 g/dL Normal 29.9-35.2 [facility] Comment on above: Performed By: #### V ITAD, FERR, FETIBC, B12FOL #### [facility] [address] [place] [address] Dr. Shilo Lam MCV (RBC) [Entitic vol] 87.7 fL Normal 80.0-94.0 [facility] Comment on above: Performed By: #### V ITAD, FERR, FETIBC, B12FOL #### [facility] [address] [place] [address] Dr. Shilo Lam PLT 157 103/ul Normal 150-450 [facility] Comment on above: Performed By: #### V ITAD, FERR, FETIBC, B12FOL #### [facility] [address] [place] [address] Dr. Shilo Lam RBC 3.73 106/ul Critically low 4.70-6.10 [facility] Comment on above: Performed By: #### V ITAD, FERR, FETIBC, B12FOL #### [facility] [address] [place] [address] Dr. Shilo Lam WBC 5.6 103/ul Normal 4.0-11.0 [facility] Comment on above: Performed By: #### V ITAD, FERR, FETIBC, B12FOL #### [facility] [address] [place] [address] Dr. Shilo Lam IRON AND TIBCon 03-17-2022 % SATURATION 38.4 % Normal [facility] Comment on above: Performed By: #### V ITAD, FERR, FETIBC, B12FOL #### [facility] [address] [place] [address] Dr. Shilo Lam Iron [Mass/Vol] 63.0 ug/dL Critically low 65.0-175.0 [facility] Comment on above: Performed By: #### V ITAD, FERR, FETIBC, B12FOL #### [facility] [address] [place] [address] Dr. Shilo Lam TIBC DIRECT 164.0 ug/dL Critically low 250.0-450.0 [facility] Comment on above: Performed By: #### V ITAD, FERR, FETIBC, B12FOL #### [facility] [address] [place] [address] Dr. Shilo Lam MAGNESIUMon 03-17-2022 Magnesium [Mass/Vol] 2.0 mg/dL Normal 1.8-2.4 [facility] Comment on above: Performed By: #### F REELIT #### [facility] [address] [place] [address] Dr. Shilo Lam PROF 14(COMP METB)on 022 Albumin [Mass/Vol] 2.9 g/dL Critically low 3.4-5.0 [facility] Comment on above: Performed By: #### F REELIT #### [facility] [address] [place] [address] Dr. Shilo Lam Albumin/Globulin [Mass ratio] 0.6 {ratio} Normal [facility] Comment on above: Performed By: #### F REELIT #### [facility] [address] [address] [address] Shilo Lam ALP [Catalytic activity/Vol] 152 U/L Critically high 46-116 [facility] Comment on above: Performed By: #### F REELIT #### [facility] [address] [address] [address] Shilo Lam ALT [Catalytic activity/Vol] 19 U/L Normal 16-63 [facility] Comment on above: Performed By: #### F REELIT #### [facility] [address] [address] [address] Shilo Lam Anion gap [Moles/Vol] 15.1 mmol/L Normal [facility] Comment on above: Performed By: #### F REELIT #### [facility] [address] [address] [address] Shilo Lam AST [Catalytic activity/Vol] 21 U/L Normal 15-37 [facility] Comment on above: Performed By: #### F REELIT #### [facility] [address] [address] [address] Shilo Lam Bilirubin [Mass/Vol] 0.6 mg/dL Normal 0.2-1.0 [facility] Comment on above: Performed By: #### F REELIT #### [facility] [address] [address] [address] Shilo Lam Calcium [Mass/Vol] 8.2 mg/dL Critically low 8.5-10.1 [facility] Comment on above: Performed By: #### F REELIT #### [facility] [address] [address] [address] Shilo Lam Chloride [Moles/Vol] 109 mmol/L Critically high 98-107 [facility] Comment on above: Performed By: #### F REELIT #### [facility] [address] [address] [address] Shilo Lam CO2 [Moles/Vol] 20.5 mmol/L Critically low 21.0-32.0 [facility] Comment on above: Performed By: #### F REELIT #### [facility] [address] [address] [address] Shilo Lam Creatinine [Mass/Vol] 4.77 mg/dL Critically high 0.70-1.30 [facility] Comment on above: Performed By: #### F REELIT #### [facility] [address] [address] [address] Shilo Lam EGFR-AF BERMUDIAN 15 mL/min/1.73m2 Critically low >=60 [facility] Comment on above: Performed By: #### F REELIT #### [facility] [address] [address] [address] Shilo Lam EGFR-NON AF BERMUDIAN 13 mL/min/1.73m2 Critically low >=60 [facility] Comment on above: Performed By: #### F REELIT #### [facility] [address] [address] [address] Shilo Lam Globulin (S) [Mass/Vol] 4.6 g/dL Normal [facility] Comment on above: Performed By: #### F REELIT #### [facility] [address] [place] [address] Dr. Shilo Lam Glucose [Mass/Vol] 88 mg/dL Normal 74-106 [facility] Comment on above: Performed By: #### F REELIT #### [facility] [address] [address] [address] Shilo Lam Potassium [Moles/Vol] 3.6 mmol/L Normal 3.5-5.1 [facility] Comment on above: Performed By: #### F REELIT #### [facility] [address] [address] [address] Shilo Lam Protein [Mass/Vol] 7.5 g/dL Normal 6.4-8.2 [facility] Comment on above: Performed By: #### F REELIT #### [facility] [address] [address] [address] Shilo Lam Sodium [Moles/Vol] 141 mmol/L Normal 136-145 [facility] Comment on above: Performed By: #### F REELIT #### [facility] [address] [place] [address] Dr. Shilo Lam Urea nitrogen [Mass/Vol] 75.0 mg/dL Critically high 7.0-18.0 [facility] Comment on above: Performed By: #### F REELIT #### [facility] [address] [place] [address] Dr. Shilo Lam Urea nitrogen/Creatinine [Mass ratio] 15.7 mg/mg Normal [facility] Comment on above: Performed By: #### F REELIT #### [facility] [address] [place] [address] Dr. Shilo Lam URIC ACID SERUMon 03-17-2022 Urate [Mass/Vol] 6.0 mg/dL Normal 3.5-7.2 [facility] Comment on above: Performed By: #### F KYLIELIT #### [facility] [address] [place] [address] Dr. Shilo Lam VIT B12 AND FOLATEon Cobalamin (Vitamin B12) [Mass/Vol] 697.0 pg/mL Normal 193.0-986.0 [facility] Comment on above: Performed By: #### V ITAD, FERR, FETIBC, B12FOL #### [facility] [address] [place] [address] Dr. Shilo Lam FOLATE 11.70 ng/mL Normal 8.60-58.90 [facility] Comment on above: Performed By: #### V ITAD, FERR, FETIBC, B12FOL #### [facility] [address] [place] [address] Dr. Shilo Lam VITAMIN D 25 OHon 03-17-2022 VIT D 25-OH 16.2 ng/mL Normal [facility] Comment on above: Performed By: #### V ITAD, FERR, FETIBC, B12FOL #### [facility] [address] [place] [address] Dr. Shilo Lam VIT D RANGES SEE BELOW Normal [facility] Comment on above: Result Comment: <20 ng/mL Vit D deficient 20 - <30 ng/mL Vit D insufficient 30 - 100 ng/mL Vit D sufficient >100 ng/mL Potential Toxicity Performed By: #### V ITAD, FERR, FETIBC, B12FOL #### [facility] [address] [place], [place] [address] Dr. Shilo Lam CBC W Auto Differential pane l (Bld)on 02-18-2022 Basophils (Bld) [#/Vol] 0.03 10*3/uL Normal <0.11 [facility] Comment on above: Order Comment: Speci men Type: BLOOD SPECIMENOrdering Facility: [facility] Address: [address] [place] [address] Performed By: #### 5 7021-8 ####[facility] LABCLIA [id number] [place] [address] Basophils/100 WBC (Bld) 0.4 % Normal [facility] Comment on above: Order Comment: Speci men Type: BLOOD SPECIMENOrdering Facility: [facility] Address: [address] [address] Performed By: #### 5 7021-8 ####[facility] LABCLIA [id number] [place] [address] Differential cell count method Nom (Bld) Auto Normal [facility] Comment on above: Order Comment: Speci men Type: BLOOD SPECIMENOrdering Facility: [facility] Address: [address] [address] Performed By: #### 5 7021-8 ####[facility] LABCLIA [id number] [place] [address] Eosinophils (Bld) [#/Vol] 0.14 10*3/uL Normal <0.46 [facility] Comment on above: Order Comment: Speci men Type: BLOOD SPECIMENOrdering Facility: [facility] Address: [address] [address] Performed By: #### 5 7021-8 ####[facility] LABCLIA [id number] [place] [address] Eosinophils/100 WBC (Bld) 1.9 % Normal [facility] Comment on above: Order Comment: Speci men Type: BLOOD SPECIMENOrdering Facility: [facility] Address: [address] [place] [address] Performed By: #### 5 7021-8 ####[facility] LABCLIA [id number] [place] [address] Erythrocyte distribution width (RBC) [Ratio] 17.1 % High 11.5-15.0 [facility] Comment on above: Order Comment: Speci men Type: BLOOD SPECIMENOrdering Facility: [facility] Address: [address] [place] [address] Performed By: #### 5 7021-8 ####[facility] LABCLIA [id number] [place] [address] Hematocrit (Bld) [Volume fraction] 32.4 % Low 39.0-51.0 [facility] Comment on above: Order Comment: Speci men Type: BLOOD SPECIMENOrdering Facility: [facility] Address: [address] [place] [address] Performed By: #### 5 7021-8 ####[facility] LABCLIA [id number] [place] [address] Hemoglobin (Bld) [Mass/Vol] 10.3 g/dL Low 13.0-17.0 [facility] Comment on above: Order Comment: Speci men Type: BLOOD SPECIMENOrdering Facility: [facility] Address: [address] [place] [address] Performed By: #### 5 7021-8 ####[facility] LABCLIA [id number] [place] [address] Immature granulocytes (Bld) [#/Vol] 0.03 10*3/uL Normal <0.10 [facility] Comment on above: Order Comment: Speci men Type: BLOOD SPECIMENOrdering Facility: [facility] Address: [address] [place] [address] Performed By: #### 5 7021-8 ####[facility] LABCLIA [id number] [place] [address] Immature granulocytes/100 WBC (Bld) 0.4 % Normal [facility] Comment on above: Order Comment: Speci men Type: BLOOD SPECIMENOrdering Facility: [facility] Address: [address] [place] [address] Performed By: #### 5 7021-8 ####[facility] LABIA [id number] [place] [address] Lymphocytes (Bld) [#/Vol] 0.74 10*3/uL Low 1.00-4.00 [facility] Comment on above: Order Comment: Speci men Type: BLOOD SPECIMENOrdering Facility: [facility] Address: [address] [place] [address] Performed By: #### 5 7021-8 ####[facility] LABIA [id number] [place] [address] Lymphocytes/100 WBC (Bld) 9.9 % Normal [facility] Comment on above: Order Comment: Speci men Type: BLOOD SPECIMENOrdering Facility: [facility] Address: [address] [place] [address] Performed By: #### 5 7021-8 ####[facility] LABCLIA [id number] [place] [address] MCH (RBC) [Entitic mass] 27.6 pg Normal 26.0-34.0 [facility] Comment on above: Order Comment: Speci men Type: BLOOD SPECIMENOrdering Facility: [facility] Address: [address] [place] [address] Performed By: #### 5 7021-8 ####[facility] LABCLIA [id number] [place] [address] MCHC (RBC) [Mass/Vol] 31.8 g/dL Normal 30.5-36.0 [facility] Comment on above: Order Comment: Speci men Type: BLOOD SPECIMENOrdering Facility: [facility] Address: [address] [place] [address] Performed By: #### 5 7021-8 ####[facility] LABCLIA [id number] [place] [address] MCV (RBC) [Entitic vol] 86.9 fL Normal 80.0-100.0 [facility] Comment on above: Order Comment: Speci men Type: BLOOD SPECIMENOrdering Facility: [facility] Address: [address] [place] [address] Performed By: #### 5 7021-8 ####[facility] LABCLIA [id number] [place] [address] Monocytes (Bld) [#/Vol] 0.77 10*3/uL Normal <0.87 [facility] Comment on above: Order Comment: Speci men Type: BLOOD SPECIMENOrdering Facility: [facility] Address: [address] [place] [address] Performed By: #### 5 7021-8 ####[facility] LABCLIA [id number] [place] [address] Monocytes/100 WBC (Bld) 10.3 % Normal [facility] Comment on above: Order Comment: Speci men Type: BLOOD SPECIMENOrdering Facility: [facility] Address: [address] [place] [address] Performed By: #### 5 7021-8 ####[facility] LABCLIA [id number] [place] [address] Neutrophils (Bld) [#/Vol] 5.77 10*3/uL Normal 1.45-7.50 [facility] Comment on above: Order Comment: Speci men Type: BLOOD SPECIMENOrdering Facility: [facility] Address: [address] [address] Performed By: #### 5 7021-8 ####[facility] LABCLIA [id number] [place] [address] Neutrophils/100 WBC (Bld) 77.1 % Normal [facility] Comment on above: Order Comment: Speci men Type: BLOOD SPECIMENOrdering Facility: [facility] Address: [address] [place] [address] Performed By: #### 5 7021-8 ####[facility] LABCLIA [id number] [place] [address] Nucleated RBC (Bld) [#/Vol] 10*3/uL Normal <0.01 [facility] Comment on above: Order Comment: Speci men Type: BLOOD SPECIMENOrdering Facility: [facility] Address: [address] [place] [address] Performed By: #### 5 7021-8 ####[facility] LABCLIA [id number] [place] [address] Nucleated RBC/100 WBC (Bld) [Ratio] 0.0 /100 WBC Normal [facility] Comment on above: Order Comment: Speci men Type: BLOOD SPECIMENOrdering Facility: [facility] Address: [address] [place] [address] Performed By: #### 5 7021-8 ####[facility] LABCLIA [id number] [place] [address] Platelet mean volume (Bld) [Entitic vol] 10.4 fL Normal 9.0-12.7 [facility] Comment on above: Order Comment: Speci men Type: BLOOD SPECIMENOrdering Facility: [facility] Address: [address] [place] [address] Performed By: #### 5 7021-8 ####[facility] LABCLIA [id number] [place] [address] Platelets (Bld) [#/Vol] 136 10*3/uL Low 150-400 [facility] Comment on above: Order Comment: Speci men Type: BLOOD SPECIMENOrdering Facility: [facility] Address: [address] [id number] Performed By: #### 5 7021-8 ####[facility] LABCLIA [id number] [place] [address] RBC (Bld) [#/Vol] 3.73 10*6/uL Low 4.20-6.00 [facility] Comment on above: Order Comment: Speci men Type: BLOOD SPECIMENOrdering Facility: [facility] Address: [address] [place] [address] Performed By: #### 5 7021-8 ####[facility] LABIA [id number] [place] [address] WBC (Bld) [#/Vol] 7.48 10*3/uL Normal 3.70-11.00 [facility] Comment on above: Order Comment: Speci men Type: BLOOD SPECIMENOrdering Facility: [facility] Address: [address] [place] [address] Performed By: #### 5 7021-8 ####[facility] LABIA [id number] [place] [address] CNOVSPon 02-18-2022 OVS Visit (SP) Office ([place]) GOPAL YATES JR ([id number]) 1965 M Date Time Provider Department 02/18/22 1:45 PM CONRAD ROJAS During your visit today, we recorded the following information about you: Temperature Pulse Respiration Blood pressure 97.7 degrees 51/minute 16/minute 129/59 Weight Height 88 kg 1.93 m Conrad Rojas MD 02/21/2022 5:24 PM Signed NAME: Gopal Yates CLINIC NO.: [id number] DATE OF SERVICE: February 18, 2022 (Latricia) Some elements in this clinic note that are critical to medical decision making have been carefully reviewed and included from a prior clinic note dated:January 14, 2022 (Imer) Referring Provider: Dr. Douglas Juárez Additional Clinicians involved in Gopal Yates JR's care: DIAGNOSIS: Elevated [place]: Lambda light chains CKD induced anemia ASSESSMENT: 56 year old gentleman with longstanding and poorly controlled T2DM and HTN with renal failure. CKD induced anemia underwent lab workup for possible underlying primary marrow conditions that were negative. PLAN: Aranesp today and q 4 weeks Labs prior to treatment. Labs in 4 weeks to include iron and b12, folate RTC in 8 weeks for labs and possible Aranesp. See Monik Follow up with Dr. Juárez for TSH 0.8 CURRENT TREATMENT: 12/04/2020 Aranesp 200 mcg initiated. - HPI: CASE HISTORY: reverse chronological order October 2021 finished IV iron with nephrology Updated Visit, February 18, 2022: Gopal is feeling good. Here with Eneida. Hgb improving on current regimen. TSH suppressed. - defer to Dr. Juárez. Updated Visit, January 14, 2022: Gopal Yates JR returns for follow-up. His last Aranesp injection of 200 mcg was on 11/19/2021. He states that he is still tired and cold. Since the Aranesp injections he has been a little more energetic. He states that the iron infusions did not help at all. He denies bleeding and abnormal bruising. 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 Overall, he is doing well today. Updated Visit, December 17, 2021: Gopal returns and has significant improvement in anemia. Will not need Epo this time around. It has been 4 weeks. Anticipate he will be fine for at least another 4 weeks. Fatigue and feeling cold is unchanged. Otherwise doing well. Updated Visit, December 03, 2021: Gopal Yates JR returns today for follow-up. Aranesp 200 mcg initiated on 10/22/2021. To date, he has had 3 Aranesp injections. He still complains of feeling cold and tired. He denies any signs of bleeding. He states that he has completed 5 doses of IV iron at [facility] [place] [place]. Initial Visit, October 02, 2021: Gopal Yates JR presents today Hematology and Oncology evaluation. He is a 56 year old male who has a chronic history of T2DM and HTN. He has neuropathy and Renal failure as well as anemia that is most likely associated. Cold and fatigued and weak. 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 - REVIEW OF SYSTEMS Per HPI and otherwise negative by full review of organ systems. - ECOG PERFORMANCE STATUS: 0 PHYSICAL EXAMINATION: Vitals: BP 129/59 Pulse 51 Temp (Src) 97.7 (Temporal) Resp 16 Ht 6' 3.984 (1.93m) Wt 194 lb (88.0kg) SpO2 99% BMI 23.62 kg/(m2). Body surface area is 2.17 meters squared. Exam limited to gross visualization where appropriate due to COVID-19. Gen.: This is an age-appropriate patient in no acute distress. Head: Appears atraumatic with no visible lesions. Eyes: Pupils equally round and reactive to light, extraocular muscles are intact. Neck: Supple. Mouth: Masked. Respiratory: Appears to be respiring comfortably. Neurologic: Nonfocal to gross visualization. Alert and oriented ?3. Psychiatric: No evidence of inappropriate anxiety or depression. Skin: Visible areas of skin without rash, lesions, wounds or petechiae. - ALLERGIES: ALLERGIES Allergen Reactions Sulfa (Sulfonamide * Unknown MEDICATIONS: aspirin 81 mg cap Take by mouth. bumetanide (BUMEX) 2 mg tablet Take 2 mg by mouth once daily. carvedilol (COREG) 25 mg tablet Take 25 mg by mouth twice daily with meals. 1/2 tabstwice daily ferrous sulfate 325 mg (65 mg iron) tablet Take 325 mg by mouth daily with breakfast. hydrALAZINE (APRESOLINE) 50 mg tablet Take 50 mg by mouth three times daily. insulin detemir (LEVEMIR FLEXPEN SUBCUTANEOUS) Inject subcutaneously. levothyroxine 100 mcg cap Take 100 mcg by mouth daily before breakfast. Multivitamin capsule Take 1 capsule by mouth once daily. NIFEdipine XL (ADALAT CC) 30 mg 24 hr (more content not included)... Normal [facility] Comprehensive metabolic 2000 panelon 02-18-2022 Albumin [Mass/Vol] 3.2 g/dL Low 3.9-4.9 [facility] Comment on above: Order Comment: Speci men Type: BLOOD SPECIMENOrdering Facility: [facility] Address: [address] [place] [phone] Performed By: #### 2 4323-8 ####[facility] LABCLIA [id number] [place] [address] ALP [Catalytic activity/Vol] 156 U/L High 38-113 [facility] Comment on above: Order Comment: Speci men Type: BLOOD SPECIMENOrdering Facility: [facility] Address: [address] [address] Performed By: #### 2 4323-8 ####[facility] LABCLIA [id number] [place] [address] ALT [Catalytic activity/Vol] 12 U/L Normal 10-54 [facility] Comment on above: Order Comment: Speci men Type: BLOOD SPECIMENOrdering Facility: [facility] Address: [address] [address] Performed By: #### 2 4323-8 ####[facility] LABCLIA [id number] [place] [address] Anion gap [Moles/Vol] 11 mmol/L Normal 9-18 [facility] Comment on above: Order Comment: Speci men Type: BLOOD SPECIMENOrdering Facility: [facility] Address: [address] [place] [address] Performed By: #### 2 4323-8 ####[facility] LABCLIA [id number] [place] [address] AST [Catalytic activity/Vol] 14 U/L Normal 14-40 [facility] Comment on above: Order Comment: Speci men Type: BLOOD SPECIMENOrdering Facility: [facility] Address: [address] [place] [address] Performed By: #### 2 4323-8 ####[facility] LABCLIA [id number] [place] [address] Bilirubin [Mass/Vol] 0.5 mg/dL Normal 0.2-1.3 [facility] Comment on above: Order Comment: Speci men Type: BLOOD SPECIMENOrdering Facility: [facility] Address: [address] [place] [address] Performed By: #### 2 4323-8 ####[facility] LABCLIA [id number] [place] [address] Calcium [Mass/Vol] 8.2 mg/dL Low 8.5-10.2 [facility] Comment on above: Order Comment: Speci men Type: BLOOD SPECIMENOrdering Facility: [facility] Address: [address] [place] [address] Performed By: #### 2 4323-8 ####[facility] LABCLIA [id number] [place] [address] Chloride [Moles/Vol] 114 mmol/L High 97-105 [facility] Comment on above: Order Comment: Speci men Type: BLOOD SPECIMENOrdering Facility: [facility] Address: [address] [place] [address] Performed By: #### 2 4323-8 ####[facility] LABCLIA [id number] [place] [address] CO2 [Moles/Vol] 18 mmol/L Low 22-30 [facility] Comment on above: Order Comment: Speci men Type: BLOOD SPECIMENOrdering Facility: [facility] Address: [address] [place] [address] Performed By: #### 2 4323-8 ####[facility] LABCLIA [id number] [place] [address] Creatinine [Mass/Vol] 4.08 mg/dL High 0.73-1.22 [facility] Comment on above: Order Comment: Speci men Type: BLOOD SPECIMENOrdering Facility: [facility] Address: [address] [place] [address] Performed By: #### 2 4323-8 ####[facility] LABCLIA [id number] [place] [address] ESTIMATED GLOMERULAR FILTRATION RATE 16 mL/min/1.73m??? Low >=60 [facility] Comment on above: Order Comment: Speci men Type: BLOOD SPECIMENOrdering Facility: [facility] Address: [address] [place] [address] Result Comment: Trixie mated Glomerular Filtration Rate (eGFR) is calculated using the 2020 CKD-EPI creatinine equation. This equation utilizes serum creatinine, sex, and age as parameters. The creatinine assay has traceable calibration to isotope dilution-mass spectrometry. Refer to KDIGO guidelines for clinical interpretation. In patients with unstable renal function, e.g. those with acute kidney injury, the eGFR may not accurately reflect actual GFR. Performed By: #### 2 4323-8 ####[facility] LABCLIA [id number] [place] [address] Glucose [Mass/Vol] 102 mg/dL High 74-99 [facility] Comment on above: Order Comment: Specmesfin mcdonnell Type: BLOOD SPECIMENOrdering Facility: [facility] Address: [address] [place] [phone] Result Comment: The [place] [employer] (ADA) provides guidance for cutoff values for fasting glucose and random glucose. The ADA defines fasting as no caloric intake for at least 8 hours. Fasting plasma glucose results between 100 to 125 mg/dL indicate increased risk for diabetes (prediabetes). Fasting plasma glucose results greater than or equal to 126 mg/dL meet the criteria for diagnosis of diabetes. In the absence of unequivocal hyperglycemia, results should be confirmed by repeat testing. In a patient with classic symptoms of hyperglycemia or hyperglycemic crisis, random plasma glucose results greater than or equal to 200 mg/dL meet the criteria for diagnosis of diabetes. Reference: Standards of Medical Care in Diabetes 2016, [place] [employer]. Diabetes Care. 2016.39(Suppl 1). Performed By: #### 2 4323-8 ####[facility] LABCLIA [id number] [place] [address] Potassium [Moles/Vol] 4.1 mmol/L Normal 3.7-5.1 [facility] Comment on above: Order Comment: Fabi mcdonnell Type: BLOOD SPECIMENOrdering Facility: [facility] Address: [place] [address] Performed By: #### 2 4323-8 ####[facility] LABCLIA [id number] [place] [address] Protein [Mass/Vol] 6.8 g/dL Normal 6.3-8.0 [facility] Comment on above: Order Comment: Speci men Type: BLOOD SPECIMENOrdering Facility: [facility] Address: [address] [address] Performed By: #### 2 4323-8 ####[facility] LABCLIA [id number] [place] [address] Sodium [Moles/Vol] 143 mmol/L Normal 136-144 [facility] Comment on above: Order Comment: Speci men Type: BLOOD SPECIMENOrdering Facility: [facility] Address: [address] [address] Performed By: #### 2 4323-8 ####[facility] LABCLIA [id number] [place] [address] Urea nitrogen [Mass/Vol] 54 mg/dL High 9-24 [facility] Comment on above: Order Comment: Speci men Type: BLOOD SPECIMENOrdering Facility: [facility] Address: [address] [address] Performed By: #### 2 4323-8 ####[facility] LABCLIA [id number] [place] [address] CBC W Auto Differential pane l (Bld)on 02-04-2022 Basophils (Bld) [#/Vol] 0.03 10*3/uL Normal <0.11 [facility] Comment on above: Order Comment: Speci men Type: BLOOD SPECIMEN [facility] Address: [address] [address] Performed By: #### 5 7021-8 #### [facility] CLIA [id number] [address] [place] [address] Basophils/100 WBC (Bld) 0.3 % Normal [facility] Comment on above: Order Comment: Speci men Type: BLOOD SPECIMEN [facility] Address: [address] [address] Performed By: #### 5 7021-8 #### [facility] CLIA [id number] [address] [place] [address] Differential cell count method Nom (Bld) Auto Normal [facility] Comment on above: Order Comment: Speci men Type: BLOOD SPECIMEN [facility] Address: [address] [place] [address] Performed By: #### 5 7021-8 #### [facility] CLIA [id number] [address] [place] [address] Eosinophils (Bld) [#/Vol] 0.13 10*3/uL Normal <0.46 [facility] Comment on above: Order Comment: Speci men Type: BLOOD SPECIMEN [facility] Address: [address] [place] [address] Performed By: #### 5 7021-8 #### [facility] CLIA [id number] [address] [place] [address] Eosinophils/100 WBC (Bld) 1.4 % Normal [facility] Comment on above: Order Comment: Speci men Type: BLOOD SPECIMEN [facility] Address: [address] [place] [address] Performed By: #### 5 7021-8 #### [facility] CLIA [id number] [address] [place] [address] Erythrocyte distribution width (RBC) [Ratio] 14.6 % Normal 11.5-15.0 [facility] Comment on above: Order Comment: Speci men Type: BLOOD SPECIMEN [facility] Address: [address] [place] [address] Performed By: #### 5 7021-8 #### [facility] CLIA [id number] [address] [place] [address] Hematocrit (Bld) [Volume fraction] 29.9 % Low 39.0-51.0 [facility] Comment on above: Order Comment: Speci men Type: BLOOD SPECIMEN [facility] Address: [address] [place] [address] Performed By: #### 5 7021-8 #### [facility] CLIA [id number] [address] [place] [address] Hemoglobin (Bld) [Mass/Vol] 9.8 g/dL Low 13.0-17.0 [facility] Comment on above: Order Comment: Speci men Type: BLOOD SPECIMEN [facility] Address: [address] [place] [address] Performed By: #### 5 7021-8 #### [facility] CLIA [id number] [address] [place] [address] Immature granulocytes (Bld) [#/Vol] 0.03 10*3/uL Normal <0.10 [facility] Comment on above: Order Comment: Speci men Type: BLOOD SPECIMEN [facility] Address: [address] [place] [address] Performed By: #### 5 7021-8 #### [facility] CLIA [id number] [address] [place] [address] Immature granulocytes/100 WBC (Bld) 0.3 % Normal [facility] Comment on above: Order Comment: Speci men Type: BLOOD SPECIMEN [facility] Address: [address] [place] [address] Performed By: #### 5 7021-8 #### [facility] CLIA [id number] [address] [place] [address] Lymphocytes (Bld) [#/Vol] 0.88 10*3/uL Low 1.00-4.00 [facility] Comment on above: Order Comment: Speci men Type: BLOOD SPECIMEN [facility] Address: [address] [place] [address] Performed By: #### 5 7021-8 #### [facility] CLIA [id number] [address] [place] [address] Lymphocytes/100 WBC (Bld) 9.4 % Normal [facility] Comment on above: Order Comment: Speci men Type: BLOOD SPECIMEN [facility] Address: [address] [place], [place] [address] Performed By: #### 5 7021-8 #### [facility] CLIA [id number] [address] [place] [address] MCH (RBC) [Entitic mass] 27.5 pg Normal 26.0-34.0 [facility] Comment on above: Order Comment: Speci men Type: BLOOD SPECIMEN [facility] Address: [address] [place], [place] [address] Performed By: #### 5 7021-8 #### [facility] CLIA [id number] [address] [place] [address] MCHC (RBC) [Mass/Vol] 32.8 g/dL Normal 30.5-36.0 [facility] Comment on above: Order Comment: Speci men Type: BLOOD SPECIMEN [facility] Address: [address] [place], [place] [address] Performed By: #### 5 7021-8 #### [facility] CLIA [id number] [address] [place] [address] MCV (RBC) [Entitic vol] 84.0 fL Normal 80.0-100.0 [facility] Comment on above: Order Comment: Speci men Type: BLOOD SPECIMEN [facility] Address: [address] [place], [place] [address] Performed By: #### 5 7021-8 #### [facility] CLIA [id number] [address] [place] [address] Monocytes (Bld) [#/Vol] 0.82 10*3/uL Normal <0.87 [facility] Comment on above: Order Comment: Speci men Type: BLOOD SPECIMEN [facility] Address: [address] [place], [place] [address] Performed By: #### 5 7021-8 #### [facility] CLIA [id number] [address] [place] [address] Monocytes/100 WBC (Bld) 8.8 % Normal [facility] Comment on above: Order Comment: Speci men Type: BLOOD SPECIMEN [facility] Address: [address] [place] [address] Performed By: #### 5 7021-8 #### [facility] CLIA [id number] [address] [place] [address] Neutrophils (Bld) [#/Vol] 7.48 10*3/uL Normal 1.45-7.50 [facility] Comment on above: Order Comment: Speci men Type: BLOOD SPECIMEN [facility] Address: [address] [place] [address] Performed By: #### 5 7021-8 #### [facility] CLIA [id number] [address] [place] [address] Neutrophils/100 WBC (Bld) 79.8 % Normal [facility] Comment on above: Order Comment: Speci men Type: BLOOD SPECIMEN [facility] Address: [address] [place] [address] Performed By: #### 5 7021-8 #### [facility] CLIA [id number] [address] [place] [address] Nucleated RBC (Bld) [#/Vol] 10*3/uL Normal <0.01 [facility] Comment on above: Order Comment: Speci men Type: BLOOD SPECIMEN [facility] Address: [address] [place], [place] [address] Performed By: #### 5 7021-8 #### [facility] CLIA [id number] [address] [place] [address] Nucleated RBC/100 WBC (Bld) [Ratio] 0.0 /100 WBC Normal [facility] Comment on above: Order Comment: Speci men Type: BLOOD SPECIMEN [facility] Address: [address] [place], [place] [address] Performed By: #### 5 7021-8 #### [facility] CLIA [id number] [address] [place] [address] Platelet mean volume (Bld) [Entitic vol] 10.4 fL Normal 9.0-12.7 [facility] Comment on above: Order Comment: Speci men Type: BLOOD SPECIMEN [facility] Address: [address] [place], [place] [address] Performed By: #### 5 7021-8 #### [facility] CLIA [id number] [address] [place] [address] Platelets (Bld) [#/Vol] 137 10*3/uL Low 150-400 [facility] Comment on above: Order Comment: Speci men Type: BLOOD SPECIMEN [facility] Address: [address] [place], [place] [address] Performed By: #### 5 7021-8 #### [facility] CLIA [id number] [address] [place] [address] RBC (Bld) [#/Vol] 3.56 10*6/uL Low 4.20-6.00 [facility] Comment on above: Order Comment: Speci men Type: BLOOD SPECIMEN [facility] Address: [address] [place], [place] [address] Performed By: #### 5 7021-8 #### [facility] CLIA [id number] [address] [place] [address] WBC (Bld) [#/Vol] 9.37 10*3/uL Normal 3.70-11.00 [facility] Comment on above: Order Comment: Speci men Type: BLOOD SPECIMEN [facility] Address: [address] [place], [place] [address] Performed By: #### 5 7021-8 #### [facility] CLIA [id number] [address] [place] [address] Comprehensive metabolic 2000 panelon 02-04-2022 Albumin [Mass/Vol] 3.4 g/dL Low 3.9-4.9 [facility] Comment on above: Order Comment: Speci men Type: BLOOD SPECIMENOrdering Facility: [facility] Address: [address] [place] [address] Performed By: #### 2 4323-8 ####[facility] LABCLIA [id number] [place] [address] ALP [Catalytic activity/Vol] 179 U/L High 38-113 [facility] Comment on above: Order Comment: Speci men Type: BLOOD SPECIMENOrdering Facility: [facility] Address: [address] [place] [address] Performed By: #### 2 4323-8 ####[facility] LABCLIA [id number] [place] [address] ALT [Catalytic activity/Vol] 25 U/L Normal 10-54 [facility] Comment on above: Order Comment: Speci men Type: BLOOD SPECIMENOrdering Facility: [facility] Address: [address] [place] [address] Performed By: #### 2 4323-8 ####[facility] LABCLIA [id number] [place] [address] Anion gap [Moles/Vol] 8 mmol/L Low 9-18 [facility] Comment on above: Order Comment: Speci men Type: BLOOD SPECIMENOrdering Facility: [facility] Address: [address] [place] [address] Performed By: #### 2 4323-8 ####[facility] LABCLIA [id number] [place] [address] AST [Catalytic activity/Vol] 23 U/L Normal 14-40 [facility] Comment on above: Order Comment: Speci men Type: BLOOD SPECIMENOrdering Facility: [facility] Address: [facility] [address] [address] Performed By: #### 2 4323-8 ####[facility] LABCLIA [id number] [place] [address] Bilirubin [Mass/Vol] 0.3 mg/dL Normal 0.2-1.3 [facility] Comment on above: Order Comment: Speci men Type: BLOOD SPECIMENOrdering Facility: [facility] Address: [address] [place] [address] Performed By: #### 2 4323-8 ####[facility] LABCLIA [id number] [place] [address] Calcium [Mass/Vol] 8.4 mg/dL Low 8.5-10.2 [facility] Comment on above: Order Comment: Speci men Type: BLOOD SPECIMENOrdering Facility: [facility] Address: [address] [place] [address] Performed By: #### 2 4323-8 ####[facility] LABCLIA [id number] [place] [address] Chloride [Moles/Vol] 117 mmol/L High 97-105 [facility] Comment on above: Order Comment: Speci men Type: BLOOD SPECIMENOrdering Facility: [facility] Address: [address] [place] [address] Performed By: #### 2 4323-8 ####[facility] LABCLIA [id number] [place] [address] CO2 [Moles/Vol] 21 mmol/L Low 22-30 [facility] Comment on above: Order Comment: Speci men Type: BLOOD SPECIMENOrdering Facility: [facility] Address: [address] [place] [address] Performed By: #### 2 4323-8 ####[facility] LABCLIA [id number] [place] [address] Creatinine [Mass/Vol] 3.84 mg/dL High 0.73-1.22 [facility] Comment on above: Order Comment: Fabi mcdonnell Type: BLOOD SPECIMENOrdering Facility: [facility] Address: [address] [phone] Performed By: #### 2 4323-8 ####[facility] LABCLIA [id number] [place] [address] ESTIMATED GLOMERULAR FILTRATION RATE 17 mL/min/1.73m??? Low >=60 [facility] Comment on above: Order Comment: Fabi mcdonnell Type: BLOOD SPECIMENOrdering Facility: [facility] Address: [address] [address] Result Comment: Trixie mated Glomerular Filtration Rate (eGFR) is calculated using the 2020 CKD-EPI creatinine equation. This equation utilizes serum creatinine, sex, and age as parameters. The creatinine assay has traceable calibration to isotope dilution-mass spectrometry. Refer to KDIGO guidelines for clinical interpretation. In patients with unstable renal function, e.g. those with acute kidney injury, the eGFR may not accurately reflect actual GFR. Performed By: #### 2 4323-8 ####[facility] LABCLIA [id number] [place] [address] Glucose [Mass/Vol] 96 mg/dL Normal 74-99 [facility] Comment on above: Order Comment: Fabi kecia Type: BLOOD SPECIMENOrdering Facility: [facility] Address: [address] [place] [address] Result Comment: The [place] [employer] (ADA) provides guidance for cutoff values for fasting glucose and random glucose. The ADA defines fasting as no caloric intake for at least 8 hours. Fasting plasma glucose results between 100 to 125 mg/dL indicate increased risk for diabetes (prediabetes). Fasting plasma glucose results greater than or equal to 126 mg/dL meet the criteria for diagnosis of diabetes. In the absence of unequivocal hyperglycemia, results should be confirmed by repeat testing. In a patient with classic symptoms of hyperglycemia or hyperglycemic crisis, random plasma glucose results greater than or equal to 200 mg/dL meet the criteria for diagnosis of diabetes. Reference: Standards of Medical Care in Diabetes 2016, [place] [employer]. Diabetes Care. 2016.39(Suppl 1). Performed By: #### 2 4323-8 ####[facility]CLIA [id number] [place] [address] Potassium [Moles/Vol] 4.1 mmol/L Normal 3.7-5.1 [facility] Comment on above: Order Comment: Speci men Type: BLOOD SPECIMENOrdering Facility: [facility] Address: [address] [place] [address] Performed By: #### 2 4323-8 ####[facility]CLIA [id number] [place] [address] Protein [Mass/Vol] 6.9 g/dL Normal 6.3-8.0 [facility] Comment on above: Order Comment: Speci men Type: BLOOD SPECIMENOrdering Facility: [facility] Address: [address] [place] [address] Performed By: #### 2 4323-8 ####[facility]CLIA [id number] [place] [address] Sodium [Moles/Vol] 146 mmol/L High 136-144 [facility] Comment on above: Order Comment: Speci men Type: BLOOD SPECIMENOrdering Facility: [facility] Address: [address] [place] [address] Performed By: #### 2 4323-8 ####[facility]CLIA [id number] [place] [address] Urea nitrogen [Mass/Vol] 56 mg/dL High 9-24 [facility] Comment on above: Order Comment: Speci men Type: BLOOD SPECIMENOrdering Facility: [facility] Address: [address] [place] [address] Performed By: #### 2 4323-8 ####[facility]CLIA [id number] [place] [address] FERRITIN BLDon 10-27-2022 Ferritin [Mass/Vol] 684.0 ng/mL High 30.3 - 5 65.7 ng/mL [facility] Iron and Iron binding capaci ty panelon 01-15-2022 Iron [Mass/Vol] 56 ug/dL 41 - 186 ug/dL [facility] Iron binding capacity [Mass/Vol] 177 ug/dL Low 232 - 386 ug/dL [facility] Iron/TIBC [Molar ratio] 31.6 % 15.0 - 57.0 % [facility] TSH BLDon 01-15-2022 TSH Qn 0.808 m[IU]/L 0.270 - 4.200 mIU/L [facility] CBC W Auto Differential pane l (Bld)on 01-14-2022 Basophils (Bld) [#/Vol] 0.03 10*3/uL Normal <0.11 [facility] Comment on above: Order Comment: Speci men Type: BLOOD SPECIMEN [facility] Address: [address] [place] [address] Performed By: #### 5 7021-8 #### [facility] CLIA [id number] [address] [place] [address] Basophils/100 WBC (Bld) 0.4 % Normal [facility] Comment on above: Order Comment: Speci men Type: BLOOD SPECIMEN [facility] Address: [address] [place] [address] Performed By: #### 5 7021-8 #### [facility] CLIA [id number] [address] [place] [address] Differential cell count method Nom (Bld) Auto Normal [facility] Comment on above: Order Comment: Speci men Type: BLOOD SPECIMEN [facility] Address: [address] [place] [address] Performed By: #### 5 7021-8 #### [facility] CLIA [id number] [address] [place] [address] 46310 Eosinophils (Bld) [#/Vol] 0.19 10*3/uL Normal <0.46 [facility] Comment on above: Order Comment: Speci men Type: BLOOD SPECIMEN Ordering Facility: [facility] Address: [address] [place] [address] Performed By: #### 5 7021-8 #### [facility] CLIA [id number] [address] [place] [address] 37560 Eosinophils/100 WBC (Bld) 2.2 % Normal [facility] Comment on above: Order Comment: Speci men Type: BLOOD SPECIMEN Ordering Facility: [facility] Address: [address] [place] [address] Performed By: #### 5 7021-8 #### [facility] CLIA [id number] [address] [place] [address] 79808 Erythrocyte distribution width (RBC) [Ratio] 13.9 % Normal 11.5-15.0 [facility] Comment on above: Order Comment: Speci men Type: BLOOD SPECIMEN Ordering Facility: [facility] Address: [address] [place] [address] Performed By: #### 5 7021-8 #### [facility] CLIA [id number] [address] [place] [address] 25675 Hematocrit (Bld) [Volume fraction] 33.7 % Low 39.0-51.0 [facility] Comment on above: Order Comment: Speci men Type: BLOOD SPECIMEN Ordering Facility: [facility] Address: [address] [place] [address] Performed By: #### 5 7021-8 #### [facility] CLIA [id number] [address] [place] [address] 26501 Hemoglobin (Bld) [Mass/Vol] 11.3 g/dL Low 13.0-17.0 [facility] Comment on above: Order Comment: Speci men Type: BLOOD SPECIMEN Ordering Facility: [facility] Address: [address] [place] [address] Performed By: #### 5 7021-8 #### [facility] CLIA [id number] [address] [place] [address] 33005 Immature granulocytes (Bld) [#/Vol] 0.03 10*3/uL Normal <0.10 [facility] Comment on above: Order Comment: Speci men Type: BLOOD SPECIMEN Ordering Facility: [facility] Address: [address] [place] [address] Performed By: #### 5 7021-8 #### [facility] CLIA [id number] [address] [place] [address] 48585 Immature granulocytes/100 WBC (Bld) 0.4 % Normal [facility] Comment on above: Order Comment: Speci men Type: BLOOD SPECIMEN Ordering Facility: [facility] Address: [address] [place] [address] Performed By: #### 5 7021-8 #### [facility] CLIA [id number] [address] [place] [address] 00444 Lymphocytes (Bld) [#/Vol] 0.95 10*3/uL Low 1.00-4.00 [facility] Comment on above: Order Comment: Speci men Type: BLOOD SPECIMEN Ordering Facility: [facility] Address: [address] [place] [address] Performed By: #### 5 7021-8 #### [facility] CLIA [id number] [address] [place] [address] 07288 Lymphocytes/100 WBC (Bld) 11.1 % Normal [facility] Comment on above: Order Comment: Speci men Type: BLOOD SPECIMEN Ordering Facility: [facility] Address: [address] [place] [address] Performed By: #### 5 7021-8 #### [facility] CLIA [id number] [address] [place] [address] 22870 MCH (RBC) [Entitic mass] 27.6 pg Normal 26.0-34.0 [facility] Comment on above: Order Comment: Speci men Type: BLOOD SPECIMEN Ordering Facility: [facility] Address: [address] [place] [address] Performed By: #### 5 7021-8 #### [facility] CLIA [id number] [address] [place] [address] 31580 MCHC (RBC) [Mass/Vol] 33.5 g/dL Normal 30.5-36.0 [facility] Comment on above: Order Comment: Speci men Type: BLOOD SPECIMEN Ordering Facility: [facility] Address: [address] [place] [address] Performed By: #### 5 7021-8 #### [facility] CLIA [id number] [address] [place] [address] 43582 MCV (RBC) [Entitic vol] 82.2 fL Normal 80.0-100.0 [facility] Comment on above: Order Comment: Speci men Type: BLOOD SPECIMEN Ordering Facility: [facility] Address: [address] [place] [address] Performed By: #### 5 7021-8 #### [facility] CLIA [id number] [address] [place] [address] 41687 Monocytes (Bld) [#/Vol] 0.89 10*3/uL High <0.87 [facility] Comment on above: Order Comment: Speci men Type: BLOOD SPECIMEN Ordering Facility: [facility] Address: [address] [place] [address] Performed By: #### 5 7021-8 #### [facility] CLIA [id number] [address] [place] [address] 21249 Monocytes/100 WBC (Bld) 10.4 % Normal [facility] Comment on above: Order Comment: Speci men Type: BLOOD SPECIMEN Ordering Facility: [facility] Address: [address] [place] [address] Performed By: #### 5 7021-8 #### [facility] CLIA [id number] [address] [place] [address] 25921 Neutrophils (Bld) [#/Vol] 6.45 10*3/uL Normal 1.45-7.50 [facility] Comment on above: Order Comment: Speci men Type: BLOOD SPECIMEN Ordering Facility: [facility] Address: [address] [place] [address] Performed By: #### 5 7021-8 #### [facility] CLIA [id number] [address] [place] [address] 18027 Neutrophils/100 WBC (Bld) 75.5 % Normal [facility] Comment on above: Order Comment: Speci men Type: BLOOD SPECIMEN Ordering Facility: [facility] Address: [address] [place] [address] Performed By: #### 5 7021-8 #### [facility] CLIA [id number] [address] [place] [address] 69219 Nucleated RBC (Bld) [#/Vol] 10*3/uL Normal <0.01 [facility] Comment on above: Order Comment: Speci men Type: BLOOD SPECIMEN Ordering Facility: [facility] Address: [address] [place], [place] [address] Performed By: #### 5 7021-8 #### [facility] CLIA [id number] [address] [place] [address] 83354 Nucleated RBC/100 WBC (Bld) [Ratio] 0.0 /100 WBC Normal [facility] Comment on above: Order Comment: Speci men Type: BLOOD SPECIMEN Ordering Facility: [facility] Address: [address] [place], [place] [address] Performed By: #### 5 7021-8 #### [facility] CLIA [id number] [address] [place] [address] 43234 Platelet mean volume (Bld) [Entitic vol] 10.1 fL Normal 9.0-12.7 [facility] Comment on above: Order Comment: Speci men Type: BLOOD SPECIMEN Ordering Facility: [facility] Address: [address] [place], [place] [address] Performed By: #### 5 7021-8 #### [facility] CLIA [id number] [address] [place] [address] 72045 Platelets (Bld) [#/Vol] 168 10*3/uL Normal 150-400 [facility] Comment on above: Order Comment: Speci men Type: BLOOD SPECIMEN Ordering Facility: [facility] Address: [address] [place] [address] Performed By: #### 5 7021-8 #### [facility] CLIA [id number] [address] [place] [address] 74668 RBC (Bld) [#/Vol] 4.10 10*6/uL Low 4.20-6.00 [facility] Comment on above: Order Comment: Speci men Type: BLOOD SPECIMEN Ordering Facility: [facility] Address: [address] [place] [address] Performed By: #### 5 7021-8 #### [facility] CLIA [id number] [address] [place] [address] 57919 WBC (Bld) [#/Vol] 8.54 10*3/uL Normal 3.70-11.00 [facility] Comment on above: Order Comment: Speci men Type: BLOOD SPECIMEN Ordering Facility: [facility] Address: [address] [place] [address] Performed By: #### 5 7021-8 #### [facility] CLIA [id number] [address] [place] [address] 61980 CNOVSPon 01-14-2022 CNOVSP Visit (SP) Office ([place]) GOPAL YATES JR ([id number]) 1965 M Date Time Provider Department 01/14/22 2:30 PM MONIK DOTSON During your visit today, we recorded the following information about you: Temperature Pulse Respiration Blood pressure 97.6 degrees 57/minute 16/minute 130/58 Weight Height 86.5 kg 1.93 m Mnoik Dotson APRN.CNP 01/16/2022 4:13 PM Signed NAME: Gopal Yates CLINIC NO.: [id number] DATE OF SERVICE: January 14, 2022 (Imer) Some elements in this clinic note that are critical to medical decision making have been carefully reviewed and included from a prior clinic note dated: December 17, 2021 (Dr. Rojas) Referring Provider: Dr. Douglas Juárez Additional Clinicians involved in Gopal Yates JR's care: DIAGNOSIS: Elevated Matt: Lambda light chains CKD induced anemia ASSESSMENT: 56 year old gentleman with longstanding and poorly controlled T2DM and HTN with renal failure. CKD induced anemia underwent lab workup for possible underlying primary marrow conditions that were negative. PLAN: 1. No Aranesp today. 2. Follow up in 5 weeks for labs and possible Aranesp. (Delay 1 week due to Holiday) 3. Will obtain records from [facility] [place] mainly interested in IV Iron dates. CURRENT TREATMENT: 12/04/2020 Aranesp 200 mcg initiated. - HPI: CASE HISTORY: Updated Visit, January 14, 2022: Gopal Yates JR returns for follow-up. His last Aranesp injection of 200 mcg was on 11/19/2021. He states that he is still tired and cold. Since the Aranesp injections he has been a little more energetic. He states that the iron infusions did not help at all. He denies bleeding and abnormal bruising. 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 Overall, he is doing well today. Updated Visit, December 17, 2021: Gopal returns and has significant improvement in anemia. Will not need Epo this time around. It has been 4 weeks. Anticipate he will be fine for at least another 4 weeks. Fatigue and feeling cold is unchanged. Otherwise doing well. Updated Visit, December 03, 2021: Gopal Yates JR returns today for follow-up. Aranesp 200 mcg initiated on 10/22/2021. To date, he has had 3 Aranesp injections. He still complains of feeling cold and tired. He denies any signs of bleeding. He states that he has completed 5 doses of IV iron at [facility] [place]. Initial Visit, October 02, 2021: Gopal Yates JR presents today Hematology and Oncology evaluation. He is a 56 year old male who has a chronic history of T2DM and HTN. He has neuropathy and Renal failure as well as anemia that is most likely associated. Cold and fatigued and weak. 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 - REVIEW OF SYSTEMS Per HPI and otherwise negative by full review of organ systems. - ECOG PERFORMANCE STATUS: 0 PHYSICAL EXAMINATION: Vitals: BP 130/58 Pulse 57 Temp (Src) 97.6 (Temporal) Resp 16 Ht 6' 3.984 (1.93m) Wt 190 lb 9.6 oz (86.5kg) SpO2 97% BMI 23.21 kg/(m2). Body surface area is 2.15 meters squared. Exam limited to gross visualization where appropriate due to COVID-19. Gen.: This is an age-appropriate patient in no acute distress. Head: Appears atraumatic with no visible lesions. Eyes: Pupils equally round and reactive to light, extraocular muscles are intact. Neck: Supple. Mouth: Masked. Respiratory: Appears to be respiring comfortably. Neurologic: Nonfocal to gross visualization. Alert and oriented ?3. Psychiatric: No evidence of inappropriate anxiety or depression. Skin: Visible areas of skin without rash, lesions, wounds or petechiae. - ALLERGIES: ALLERGIES Allergen Reactions Sulfa (Sulfonamide * Unknown MEDICATIONS: aspirin 81 mg cap Take by mouth. bumetanide (BUMEX) 2 mg tablet Take 2 mg by mouth once daily. carvedilol (COREG) 25 mg tablet Take 25 mg by mouth twice daily with meals. 1/2 tabstwice daily ferrous sulfate 325 mg (65 mg iron) tablet Take 325 mg by mouth daily with breakfast. hydrALAZINE (APRESOLINE) 50 mg tablet Take 50 mg by mouth three times daily. insulin detemir (LEVEMIR FLEXPEN SUBCUTANEOUS) Inject subcutaneously. levothyroxine 100 mcg cap Take 100 mcg by mouth daily before breakfast. Multivitamin capsule Take 1 capsule by mouth once daily. NIFEdipine XL (ADALAT CC) 30 mg 24 hr tablet Take 30 mg by mouth once daily. potassium chloride (K-TAB) 10 mEq tablet Take 10 mEq by mouth twice daily. Omeprazole Magnesium 20 mg tablet Take 20 mg by mouth once daily. sodium bicarbonate 650 mg tab (more content not included)... Normal [facility] Comprehensive metabolic 2000 panelon 01-14-2022 Albumin [Mass/Vol] 3.4 g/dL Low 3.9-4.9 [facility] Comment on above: Order Comment: Speci men Type: BLOOD SPECIMENOrdering Facility: [facility] Address: [address] [place] [address] Performed By: #### 2 4323-8 ####[facility] [id number] [place] [address] ALP [Catalytic activity/Vol] 190 U/L High 38-113 [facility] Comment on above: Order Comment: Speci men Type: BLOOD SPECIMENOrdering Facility: [facility] Address: [address] [place] [address] Performed By: #### 2 4323-8 ####[facility] [id number] [place] [address] ALT [Catalytic activity/Vol] 24 U/L Normal 10-54 [facility] Comment on above: Order Comment: Speci men Type: BLOOD SPECIMENOrdering Facility: [facility] Address: [address] [place] [address] Performed By: #### 2 4323-8 ####[facility] [id number] [place] [address] Anion gap [Moles/Vol] 11 mmol/L Normal 9-18 [facility] Comment on above: Order Comment: Speci men Type: BLOOD SPECIMENOrdering Facility: [facility] Address: [address] [place] [address] Performed By: #### 2 4323-8 ####[facility] [id number] [place] [address] AST [Catalytic activity/Vol] 19 U/L Normal 14-40 [facility] Comment on above: Order Comment: Speci men Type: BLOOD SPECIMENOrdering Facility: [facility] Address: [address] [place] [address] Performed By: #### 2 4323-8 ####[facility] [id number] [place] [address] Bilirubin [Mass/Vol] 0.4 mg/dL Normal 0.2-1.3 [facility] Comment on above: Order Comment: Speci men Type: BLOOD SPECIMENOrdering Facility: [facility] Address: [address] [place] [address] Performed By: #### 2 4323-8 ####[facility] [id number] [place] [address] Calcium [Mass/Vol] 8.5 mg/dL Normal 8.5-10.2 [facility] Comment on above: Order Comment: Speci men Type: BLOOD SPECIMENOrdering Facility: [facility] Address: [address] [place] [address] Performed By: #### 2 4323-8 ####[facility] [id number] [place] [address] Chloride [Moles/Vol] 112 mmol/L High 97-105 [facility] Comment on above: Order Comment: Speci men Type: BLOOD SPECIMENOrdering Facility: [facility] Address: [address] [place] [address] Performed By: #### 2 4323-8 ####[facility] [id number] [place] [address] CO2 [Moles/Vol] 19 mmol/L Low 22-30 [facility] Comment on above: Order Comment: Speci men Type: BLOOD SPECIMENOrdering Facility: [facility] Address: [address] [place] [address] Performed By: #### 2 4323-8 ####[facility] [id number] [place] [address] Creatinine [Mass/Vol] 4.06 mg/dL High 0.73-1.22 [facility] Comment on above: Order Comment: Speci men Type: BLOOD SPECIMENOrdering Facility: [facility] Address: [address] [place] [address] Performed By: #### 2 4323-8 ####[facility] [id number] [place] [address] ESTIMATED GLOMERULAR FILTRATION RATE 16 mL/min/1.73m??? Low >=60 [facility] Comment on above: Order Comment: Speci men Type: BLOOD SPECIMENOrdering Facility: [facility] Address: [address] [id number] Result Comment: Trixie mated Glomerular Filtration Rate (eGFR) is calculated using the 2020 CKD-EPI creatinine equation. This equation utilizes serum creatinine, sex, and age as parameters. The creatinine assay has traceable calibration to isotope dilution-mass spectrometry. Refer to KDIGO guidelines for clinical interpretation. In patients with unstable renal function, e.g. those with acute kidney injury, the eGFR may not accurately reflect actual GFR. Performed By: #### 2 4323-8 ####[facility] [id number] [place] [address] Glucose [Mass/Vol] 90 mg/dL Normal 74-99 [facility] Comment on above: Order Comment: Specmesfin men Type: BLOOD SPECIMENOrdering Facility: [facility] Address: [address] [place] [address] Result Comment: The [place] [employer] (ADA) provides guidance for cutoff values for fasting glucose and random glucose. The ADA defines fasting as no caloric intake for at least 8 hours. Fasting plasma glucose results between 100 to 125 mg/dL indicate increased risk for diabetes (prediabetes). Fasting plasma glucose results greater than or equal to 126 mg/dL meet the criteria for diagnosis of diabetes. In the absence of unequivocal hyperglycemia, results should be confirmed by repeat testing. In a patient with classic symptoms of hyperglycemia or hyperglycemic crisis, random plasma glucose results greater than or equal to 200 mg/dL meet the criteria for diagnosis of diabetes. Reference: Standards of Medical Care in Diabetes 2016, [place] [employer]. Diabetes Care. 2016.39(Suppl 1). Performed By: #### 2 4323-8 ####[facility] [id number] [place] [address] Potassium [Moles/Vol] 4.1 mmol/L Normal 3.7-5.1 [facility] Comment on above: Order Comment: Fabi men Type: BLOOD SPECIMENOrdering Facility: [facility] Address: [address] Performed By: #### 2 4323-8 ####[facility]CLIA [id number] [place] [address] Protein [Mass/Vol] 7.2 g/dL Normal 6.3-8.0 [facility] Comment on above: Order Comment: Speci men Type: BLOOD SPECIMENOrdering Facility: [facility] Address: [address] [place] [address] Performed By: #### 2 4323-8 ####[facility]CLIA [id number] [place] [address] Sodium [Moles/Vol] 142 mmol/L Normal 136-144 [facility] Comment on above: Order Comment: Speci men Type: BLOOD SPECIMENOrdering Facility: [facility] Address: [address] [place] [address] Performed By: #### 2 4323-8 ####[facility]CLIA [id number] [place] [address] Urea nitrogen [Mass/Vol] 61 mg/dL High 9-24 [facility] Comment on above: Order Comment: Speci men Type: BLOOD SPECIMENOrdering Facility: [facility] Address: [address] [place] [address] Performed By: #### 2 4323-8 ####[facility]CLIA [id number] [place] [address] Ferritin SerPl-mCnc 2021 Ferritin [Mass/Vol] 684.0 ng/mL High 30.3-565.7 [facility] Comment on above: Order Comment: Speci men Type: BLOOD SPECIMENOrdering Facility: [facility] Address: [address] [place] [address] Performed By: #### 2 276-4, 38206-8, 3016-3 ####[facility] LABCLIA [id number] [place] [address] [place] Iron and Iron binding capaci ty panelon 10-26-2022 Iron [Mass/Vol] 56 ug/dL Normal 41-186 [facility] Comment on above: Order Comment: Speci men Type: BLOOD SPECIMENOrdering Facility: [facility] Address: [address] [place], [place] [address] Performed By: #### 2 276-4, 26810-9, 6-3 ####[facility]CLIA [id number] [address] [place] [facility] Iron binding capacity [Mass/Vol] 177 ug/dL Low 232-386 [facility] Comment on above: Order Comment: Speci men Type: BLOOD SPECIMENOrdering Facility: [facility] Address: [address] [place] [address] Performed By: #### 2 276-4, 18574-4, 6-3 ####[facility]CLIA [id number] [address] [place] [facility] Iron/TIBC [Molar ratio] 31.6 % Normal 15.0-57.0 [facility] Comment on above: Order Comment: Speci men Type: BLOOD SPECIMENOrdering Facility: [facility] Address: [address] [place] [address] Performed By: #### 2 276-4, 04206-0, 6-3 ####[facility]CLIA [id number] [place] [address] [place] TSH SerPl-aCncon 01-14-2022 TSH Qn 0.808 m[IU]/L Normal 0.270-4.200 [facility] Comment on above: Order Comment: Speci men Type: BLOOD SPECIMENOrdering Facility: [facility] Address: [address] [place], [place] [address] Performed By: #### 2 276-4, 81486-5, 6-3 ####[facility]CLIA [id number] [place] [address] [place] CBC W Auto Differential pane l (Bld)on 12-17-2021 Basophils (Bld) [#/Vol] 0.03 10*3/uL Normal <0.11 [facility] Comment on above: Order Comment: Speci men Type: BLOOD SPECIMENOrdering Facility: [facility] Address: [address] [place] [address] Performed By: #### 5 7021-8 ####[facility]CLIA [id number] [place] [address] Basophils/100 WBC (Bld) 0.5 % Normal [facility] Comment on above: Order Comment: Speci men Type: BLOOD SPECIMENOrdering Facility: [facility] Address: [address] [place] [address] Performed By: #### 5 7021-8 ####[facility]CLIA [id number] [place] [address] Differential cell count method Nom (Bld) Auto Normal [facility] Comment on above: Order Comment: Speci men Type: BLOOD SPECIMENOrdering Facility: [facility] Address: [address] [place] [address] Performed By: #### 5 7021-8 ####[facility]CLIA [id number] [place] [address] Eosinophils (Bld) [#/Vol] 0.19 10*3/uL Normal <0.46 [facility] Comment on above: Order Comment: Speci men Type: BLOOD SPECIMENOrdering Facility: [facility] Address: [address] [place] [address] Performed By: #### 5 7021-8 ####[facility]CLIA [id number] [place] [address] Eosinophils/100 WBC (Bld) 3.3 % Normal [facility] Comment on above: Order Comment: Speci men Type: BLOOD SPECIMENOrdering Facility: [facility] Address: [address] [place] [address] Performed By: #### 5 7021-8 ####[facility]CLIA [id number] [place] [address] Erythrocyte distribution width (RBC) [Ratio] 13.8 % Normal 11.5-15.0 [facility] Comment on above: Order Comment: Speci men Type: BLOOD SPECIMENOrdering Facility: [facility] Address: [address] [place] [address] Performed By: #### 5 7021-8 ####[facility]CLIA [id number] [place] [address] Hematocrit (Bld) [Volume fraction] 36.5 % Low 39.0-51.0 [facility] Comment on above: Order Comment: Speci men Type: BLOOD SPECIMENOrdering Facility: [facility] Address: [address] [place] [address] Performed By: #### 5 7021-8 ####[facility] LABIA [id number] [place] [address] Hemoglobin (Bld) [Mass/Vol] 12.0 g/dL Low 13.0-17.0 [facility] Comment on above: Order Comment: Speci men Type: BLOOD SPECIMENOrdering Facility: [facility] Address: [address] [place] [address] Performed By: #### 5 7021-8 ####[facility] [facility] LABCLIA [id number] [place] [address] IMMATURE GRAN % 0.3 % Normal [facility] Comment on above: Order Comment: Speci men Type: BLOOD SPECIMENOrdering Facility: [facility] Address: [address] [place] [address] Performed By: #### 5 7021-8 ####[facility] LABCLIA [id number] [place] [address] IMMATURE GRAN ABS <0.03 Normal <0.10 [facility] Comment on above: Order Comment: Speci men Type: BLOOD SPECIMENOrdering Facility: [facility] Address: [address] [place] [address] Performed By: #### 5 7021-8 ####[facility] LABIA [id number] [place] [address] Lymphocytes (Bld) [#/Vol] 0.80 10*3/uL Low 1.00-4.00 [facility] Comment on above: Order Comment: Speci men Type: BLOOD SPECIMENOrdering Facility: [facility] Address: [address] [place] [address] Performed By: #### 5 7021-8 ####[facility] LABIA [id number] [place] [address] Lymphocytes/100 WBC (Bld) 13.9 % Normal [facility] Comment on above: Order Comment: Speci men Type: BLOOD SPECIMENOrdering Facility: [facility] Address: [address] [place] [address] Performed By: #### 5 7021-8 ####[facility] LABIA [id number] [place] [address] MCH (RBC) [Entitic mass] 27.5 pg Normal 26.0-34.0 [facility] Comment on above: Order Comment: Speci men Type: BLOOD SPECIMENOrdering Facility: [facility] Address: [address] [place], [place] [address] Performed By: #### 5 7021-8 ####[facility] LABCLIA [id number] [place] [address] MCHC (RBC) [Mass/Vol] 32.9 g/dL Normal 30.5-36.0 [facility] Comment on above: Order Comment: Speci men Type: BLOOD SPECIMENOrdering Facility: [facility] Address: [address] [place] [address] Performed By: #### 5 7021-8 ####[facility] LABCLIA [id number] [place] [address] MCV (RBC) [Entitic vol] 83.7 fL Normal 80.0-100.0 [facility] Comment on above: Order Comment: Speci men Type: BLOOD SPECIMENOrdering Facility: [facility] Address: [address] [place] [address] Performed By: #### 5 7021-8 ####[facility] LABCLIA [id number] [place] [address] Monocytes (Bld) [#/Vol] 0.60 10*3/uL Normal <0.87 [facility] Comment on above: Order Comment: Speci men Type: BLOOD SPECIMENOrdering Facility: [facility] Address: [address] [place] [address] Performed By: #### 5 7021-8 ####[facility] LABCLIA [id number] [place] [address] Monocytes/100 WBC (Bld) 10.5 % Normal [facility] Comment on above: Order Comment: Speci men Type: BLOOD SPECIMENOrdering Facility: [facility] Address: [address] [place] [address] Performed By: #### 5 7021-8 ####[facility] LABCLIA [id number] [place] [address] Neutrophils (Bld) [#/Vol] 4.10 10*3/uL Normal 1.45-7.50 [facility] Comment on above: Order Comment: Speci men Type: BLOOD SPECIMENOrdering Facility: [facility] Address: [address] [place] [address] Performed By: #### 5 7021-8 ####[facility] LABCLIA [id number] [place] [address] Neutrophils/100 WBC (Bld) 71.5 % Normal [facility] Comment on above: Order Comment: Speci men Type: BLOOD SPECIMENOrdering Facility: [facility] Address: [address] [place] [address] Performed By: #### 5 7021-8 ####[facility] LABCLIA [id number] [place] [address] Nucleated RBC (Bld) [#/Vol] 10*3/uL Normal <0.01 [facility] Comment on above: Order Comment: Speci men Type: BLOOD SPECIMENOrdering Facility: [facility] Address: [address] [place] [address] Performed By: #### 5 7021-8 ####[facility] LABCLIA [id number] [place] [address] Nucleated RBC/100 WBC (Bld) [Ratio] 0.0 /100 WBC Normal [facility] Comment on above: Order Comment: Speci men Type: BLOOD SPECIMENOrdering Facility: [facility] Address: [address] [place] [address] Performed By: #### 5 7021-8 ####[facility] LABCLIA [id number] [place] [address] Platelet mean volume (Bld) [Entitic vol] 10.0 fL Normal 9.0-12.7 [facility] Comment on above: Order Comment: Speci men Type: BLOOD SPECIMENOrdering Facility: [facility] Address: [address] [place], [place] [address] Performed By: #### 5 7021-8 ####[facility] LABCLIA [id number] [place] [address] Platelets (Bld) [#/Vol] 174 10*3/uL Normal 150-400 [facility] Comment on above: Order Comment: Speci men Type: BLOOD SPECIMENOrdering Facility: [facility] Address: [address] [place] [address] Performed By: #### 5 7021-8 ####[facility] LABCLIA [id number] [place] [address] RBC (Bld) [#/Vol] 4.36 10*6/uL Normal 4.20-6.00 [facility] Comment on above: Order Comment: Speci men Type: BLOOD SPECIMENOrdering Facility: [facility] Address: [address] [place] [address] Performed By: #### 5 7021-8 ####[facility] LABCLIA [id number] [place] [address] WBC (Bld) [#/Vol] 5.74 10*3/uL Normal 3.70-11.00 [facility] Comment on above: Order Comment: Speci men Type: BLOOD SPECIMENOrdering Facility: [facility] Address: [address] [place] [address] Performed By: #### 5 7021-8 ####[facility] LABCLIA [id number] [place] [address] CNOVSPon 12-17-2021 CNOVSP Visit (SP) Office (HEMASA) GOPAL YATES ([id number]) 1965 M Date Time Provider Department 12/17/21 2:15 PM CONRAD ROJAS During your visit today, we recorded the following information about you: Temperature Pulse Respiration Blood pressure 97.7 degrees 56/minute 16/minute 132/65 Weight Height 87.8 kg 1.93 m Conrad Rojas MD 12/17/2021 4:03 PM Signed NAME: Gopal Yates [facility] NO.: [id number] DATE OF SERVICE: December 17, 2021 (Latricia) Some elements in this clinic note that are critical to medical decision making have been carefully reviewed and included from a prior clinic note dated: December 03, 2021 (Imer) Referring Provider: Dr. Douglas Juárez Additional Clinicians involved in Gopal Yates JR's care: DIAGNOSIS: Elevated Matt:Lambda light chains CKD induced anemia ASSESSMENT: 56 year old gentleman with longstanding and poorly controlled T2DM and HTN with renal failure. CKD induced anemia underwent lab workup for possible underlying primary marrow conditions that were negative. PLAN: 1. No Aranesp today. 2. Follow up in weeks for labs and possible Aranesp. 3. Will obtain records from [facility] [place] mainly interested in IV Iron dates. CURRENT TREATMENT: 12/04/2020 Aranesp 200 mcg initiated. - HPI: CASE HISTORY: Updated Visit, December 17, 2021: Gopal returns and has significant improvement in anemia. Will not need Epo this time around. It has been 4 weeks. Anticipate he will be fine for at least another 4 weeks. Fatigue and feeling cold is unchanged. Otherwise doing well. Updated Visit, December 03, 2021: Gopal Yates JR returns today for follow-up. Aranesp 200 mcg initiated on 10/22/2021. To date, he has had 3 Aranesp injections. He still complains of feeling cold and tired. He denies any signs of bleeding. He states that he has completed 5 doses of IV iron at [facility] [place]. Initial Visit, October 02, 2021: Gopal Yates JR presents today Hematology and Oncology evaluation. He is a 56 year old male who has a chronic history of T2DM and HTN. He has neuropathy and Renal failure as well as anemia that is most likely associated. Cold and fatigued and weak. 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 - REVIEW OF SYSTEMS Per HPI and otherwise negative by full review of organ systems. - ECOG PERFORMANCE STATUS: 0 PHYSICAL EXAMINATION: Vitals: BP 132/65 Pulse 56 Temp (Src) 97.7 (Temporal) Resp 16 Ht 6' 3.984 (1.93m) Wt 193 lb 9.6 oz (87.8kg) SpO2 98% BMI 23.58 kg/(m2). Body surface area is 2.17 meters squared. Exam limited to gross visualization where appropriate due to COVID-19. Gen.: This is an age-appropriate patient in no acute distress. Head: Appears atraumatic with no visible lesions. Eyes: Pupils equally round and reactive to light, extraocular muscles are intact. Neck: Supple. Mouth: Masked. Respiratory: Appears to be respiring comfortably. Neurologic: Nonfocal to gross visualization. Alert and oriented ?3. Psychiatric: No evidence of inappropriate anxiety or depression. Skin: Visible areas of skin without rash, lesions, wounds or petechiae. - ALLERGIES: ALLERGIES Allergen Reactions Sulfa (Sulfonamide * Unknown MEDICATIONS: aspirin 81 mg cap Take by mouth. bumetanide (BUMEX) 2 mg tablet Take 2 mg by mouth once daily. carvedilol (COREG) 25 mg tablet Take 25 mg by mouth twice daily with meals. 1/2 tabstwice daily ferrous sulfate 325 mg (65 mg iron) tablet Take 325 mg by mouth daily with breakfast. hydrALAZINE (APRESOLINE) 50 mg tablet Take 50 mg by mouth three times daily. insulin detemir (LEVEMIR FLEXPEN SUBCUTANEOUS) Inject subcutaneously. levothyroxine 100 mcg cap Take 100 mcg by mouth daily before breakfast. Multivitamin capsule Take 1 capsule by mouth once daily. NIFEdipine XL (ADALAT CC) 30 mg 24 hr tablet Take 30 mg by mouth once daily. potassium chloride (K-TAB) 10 mEq tablet Take 10 mEq by mouth twice daily. Omeprazole Magnesium 20 mg tablet Take 20 mg by mouth once daily. sodium bicarbonate 650 mg tablet Take 650 mg by mouth twice daily. ezetimibe (ZETIA) 10 mg tablet Take 10 mg by mouth once daily. - LABORATORY VALUES: Hemoglobin (g/dL) Date Value 12/17/2021 12.0 Hematocrit (%) Date Value 12/17/2021 36.5 WBC (k/uL) Date Value 12/17/2021 5.74 Platelet Count (k/uL) Date Value 12/17/2021 174 (more content not included)... Normal [facility] Comprehensive metabolic 2000 panelon 12-17-2021 Albumin [Mass/Vol] 3.4 g/dL Low 3.9-4.9 [facility] Comment on above: Order Comment: Speci men Type: BLOOD SPECIMENOrdering Facility: [facility] Address: [address] [place] [id number] Performed By: #### 2 4323-8 ####[facility] LABCLIA [id number] [place] [address] ALP [Catalytic activity/Vol] 159 U/L High 38-113 [facility] Comment on above: Order Comment: Speci men Type: BLOOD SPECIMENOrdering Facility: [facility] Address: [address] [place] [address] Performed By: #### 2 4323-8 ####[facility] LABCLIA [id number] [place] [address] ALT [Catalytic activity/Vol] 12 U/L Normal 10-54 [facility] Comment on above: Order Comment: Speci men Type: BLOOD SPECIMENOrdering Facility: [facility] Address: [address] [place] [address] Performed By: #### 2 4323-8 ####[facility] LABCLIA [id number] [place] [address] Anion gap [Moles/Vol] 9 mmol/L Normal 9-18 [facility] Comment on above: Order Comment: Speci men Type: BLOOD SPECIMENOrdering Facility: [facility] Address: [address] [place] [address] Performed By: #### 2 4323-8 ####[facility] LABCLIA [id number] [place] [address] AST [Catalytic activity/Vol] 14 U/L Normal 14-40 [facility] Comment on above: Order Comment: Speci men Type: BLOOD SPECIMENOrdering Facility: [facility] Address: [address] [place] [address] Performed By: #### 2 4323-8 ####[facility] LABIA [id number] [place] [address] Bilirubin [Mass/Vol] 0.4 mg/dL Normal 0.2-1.3 [facility] Comment on above: Order Comment: Speci men Type: BLOOD SPECIMENOrdering Facility: [facility] Address: [address] [place] [address] Performed By: #### 2 4323-8 ####[facility] LABCLIA [id number] [place] [address] Calcium [Mass/Vol] 8.3 mg/dL Low 8.5-10.2 [facility] Comment on above: Order Comment: Speci men Type: BLOOD SPECIMENOrdering Facility: [facility] Address: [address] [place] [address] Performed By: #### 2 4323-8 ####[facility] LABCLIA [id number] [place] [address] Chloride [Moles/Vol] 108 mmol/L High 97-105 [facility] Comment on above: Order Comment: Speci men Type: BLOOD SPECIMENOrdering Facility: [facility] Address: [address] [place] [address] Performed By: #### 2 4323-8 ####[facility] LABCLIA [id number] [place] [address] CO2 [Moles/Vol] 21 mmol/L Low 22-30 [facility] Comment on above: Order Comment: Speci men Type: BLOOD SPECIMENOrdering Facility: [facility] Address: [address] [place] [address] Performed By: #### 2 4323-8 ####[facility] LABCLIA [id number] [place] [address] Creatinine [Mass/Vol] 3.84 mg/dL High 0.73-1.22 [facility] Comment on above: Order Comment: Speci men Type: BLOOD SPECIMENOrdering Facility: [facility] Address: [address] [place], [place] [address] Performed By: #### 2 4323-8 ####[facility] LABCLIA [id number] [place] [address] ESTIMATED GLOMERULAR FILTRATION RATE 17 mL/min/1.73m??? Low >=60 [facility] Comment on above: Order Comment: Fabi mcdonnell Type: BLOOD SPECIMENOrdering Facility: [facility] Address: [address] [place] [id number] Result Comment: Trixie mated Glomerular Filtration Rate (eGFR) is calculated using the 2020 CKD-EPI creatinine equation. This equation utilizes serum creatinine, sex, and age as parameters. The creatinine assay has traceable calibration to isotope dilution-mass spectrometry. Refer to KDIGO guidelines for clinical interpretation. In patients with unstable renal function, e.g. those with acute kidney injury, the eGFR may not accurately reflect actual GFR. Performed By: #### 2 4323-8 ####[facility] LABIA [id number] [place] [address] Glucose [Mass/Vol] 87 mg/dL Normal 74-99 [facility] Comment on above: Order Comment: Fabi mcdonnell Type: BLOOD SPECIMENOrdering Facility: [facility] Address: [address] [place] [address] Result Comment: The [place] Diabetes Association (ADA) provides guidance for cutoff values for fasting glucose and random glucose. The ADA defines fasting as no caloric intake for at least 8 hours. Fasting plasma glucose results between 100 to 125 mg/dL indicate increased risk for diabetes (prediabetes). Fasting plasma glucose results greater than or equal to 126 mg/dL meet the criteria for diagnosis of diabetes. In the absence of unequivocal hyperglycemia, results should be confirmed by repeat testing. In a patient with classic symptoms of hyperglycemia or hyperglycemic crisis, random plasma glucose results greater than or equal to 200 mg/dL meet the criteria for diagnosis of diabetes. Reference: Standards of Medical Care in Diabetes 2016, [place] [employer]. Diabetes Care. 2016.39(Suppl 1). Performed By: #### 2 4323-8 ####[facility] LABIA [id number] [place] [address] Potassium [Moles/Vol] 4.0 mmol/L Normal 3.7-5.1 [facility] Comment on above: Order Comment: Fabi mcdonnell Type: BLOOD SPECIMENOrdering Facility: [facility] Address: [address] [phone] Performed By: #### 2 4323-8 ####[facility] LABCLIA [id number] [place] [address] Protein [Mass/Vol] 6.8 g/dL Normal 6.3-8.0 [facility] Comment on above: Order Comment: Speci men Type: BLOOD SPECIMENOrdering Facility: [facility] Address: [address] [place] [address] Performed By: #### 2 4323-8 ####[facility] LABCLIA [id number] [place] [address] Sodium [Moles/Vol] 138 mmol/L Normal 136-144 [facility] Comment on above: Order Comment: Speci men Type: BLOOD SPECIMENOrdering Facility: [facility] Address: [address] [place] [address] Performed By: #### 2 4323-8 ####[facility] LABCLIA [id number] [place] [address] Urea nitrogen [Mass/Vol] 50 mg/dL High 9-24 [facility] Comment on above: Order Comment: Speci men Type: BLOOD SPECIMENOrdering Facility: [facility] Address: [address] [place] [address] Performed By: #### 2 4323-8 ####[facility] LABCLIA [id number] [place] [address] HEP B SURFACE ANTIGEN SCREEN on 12-05-2021 HBsAg Screen Negative Normal Negative [facility] Comment on above: Performed By: #### H BSANS #### [facility] [address] [place] [address] Dr. Shilo Lam PTH INTACTon 12-05-2021 PTH, Intact 62 pg/mL Normal 15-65 [facility] Comment on above: Performed By: #### V ITAD, FERR, FETIBC, B12FOL #### [facility] [address] [place] [address] Dr. Shilo Lam VIT D 25-[place] LABCORPon 2021 Vitamin D, 25-Hydroxy 50.9 ng/mL Normal 30.0-100.0 [facility] Comment on above: Result Comment: Laura min D deficiency has been defined by the [place] of [employer] and an Endocrine Society practice guideline as a level of serum 25-OH vitamin D less than 20 ng/mL (1,2). The Endocrine Society went on to further define vitamin D insufficiency as a level between 21 and 29 ng/mL (2). 1. IOM ([place] of Medicine). 2010. Dietary reference intakes for calcium and D. [place]: The National Academies Press. 2. Sherine MF, [place], [place] REY, et al. Evaluation, treatment, and prevention of vitamin D deficiency: an Endocrine Society clinical practice guideline. JCEM. 2010; 96(7):1911-30. Performed By: #### H [facility] #### [facility] [address] [place] [address] Dr. Shilo [facility] 12-04-2021 CNPN Telephone (HEMASA) GOPAL YATES JR ([id number]) 1965 M Date Time Provider Department 12/04/21 MONIK DOTSON During your visit today, we recorded the following information about you: Dana Simpson [facility] 12/04/2021 10:17 AM Signed Brionna from [facility] [place] infusion center called back regarding patients iron infusions. She said he got 2 sets of 5 doses. Dates of infusion are: 07/22/21, 07/31/21, 08/06/21, 08/13/21, 08/20/21 10/20/21, 10/27/21, 11/03/21, 11/10/21, 11/17/21 Monik Dotson APRN.CNP 12/04/2021 11:47 AM Signed Thanks! Monik Dotson APRN.AILYN Allergies As of Date: 12/04/2021 Noted Allergy Reaction SULFA (SULFONAMIDE ANTIBIOTICS) 10/01/2021 16 - Unknown Date Reviewed: 12/04/2021 Reviewed by: Monik Dotson APRN.AILYN - Fully Assessed Reason for Visit: Infusions [Other] Prescriptions as of 12/04/2021 - aspirin 81 mg cap Take by mouth. - bumetanide (BUMEX) 2 mg tablet Take 2 mg by mouth once daily. - carvedilol (COREG) 25 mg tablet Take 25 mg by mouth twice daily with meals. 1/2 tabstwice daily - ferrous sulfate 325 mg (65 mg iron) tablet Take 325 mg by mouth daily with breakfast. - hydrALAZINE (APRESOLINE) 50 mg tablet Take 50 mg by mouth three times daily. - insulin detemir (LEVEMIR FLEXPEN SUBCUTANEOUS) Inject subcutaneously. - levothyroxine 100 mcg cap Take 100 mcg by mouth daily before breakfast. - Multivitamin capsule Take 1 capsule by mouth once daily. - NIFEdipine XL (ADALAT CC) 30 mg 24 hr tablet Take 30 mg by mouth once daily. - potassium chloride (K-TAB) 10 mEq tablet Take 10 mEq by mouth twice daily. - Omeprazole Magnesium 20 mg tablet Take 20 mg by mouth once daily. - sodium bicarbonate 650 mg tablet Take 650 mg by mouth twice daily. - ezetimibe (ZETIA) 10 mg tablet Take 10 mg by mouth once daily. Problem List As Of Date 12/04/2021 Noted Resolved Anemia due to stage 3b chronic kidney disease (*10/08/2021 Encounter Status:Closed by DANA APPLE on 12/04/21 Normal [facility] FERRITINon 12-04-2021 Ferritin [Mass/Vol] 272.0 ng/mL Normal 26.0-388.0 [facility] Comment on above: Performed By: #### H BSANS #### [facility] [address] [place] [address] Shilo Lam IRON AND TIBCon 12-04-2021 % SATURATION 32.8 % Normal [facility] Comment on above: Performed By: #### H BSANS #### [facility] [address] [address] [address] Shilo Lam Iron [Mass/Vol] 57.0 ug/dL Critically low 65.0-175.0 [facility] Comment on above: Performed By: #### H BSANS #### [facility] [address] [place] [address] Dr. Shilo Lam TIBC DIRECT 174.0 ug/dL Critically low 250.0-450.0 [facility] Comment on above: Performed By: #### H BSANS #### [facility] [address] [place] [address] Dr. Shilo Lam MAGNESIUMon 12-04-2021 Magnesium [Mass/Vol] 1.9 mg/dL Normal 1.8-2.4 [facility] Comment on above: Performed By: #### H BSANS #### [facility] [address] [place] [address] Dr. Shilo Lam PROF 14(COMP METB)on 022 Albumin [Mass/Vol] 2.9 g/dL Critically low 3.4-5.0 [facility] Comment on above: Performed By: #### H BSANS #### [facility] [address] [place] [address] Dr. Shilo Lam Albumin/Globulin [Mass ratio] 0.6 {ratio} Normal [facility] Comment on above: Performed By: #### H BSANS #### [facility] [address] [place] [address] Dr. Shilo Lam ALP [Catalytic activity/Vol] 150 U/L Critically high 46-116 [facility] Comment on above: Performed By: #### H BSANS #### [facility] [address] [place] [address] Dr. Shilo Lam ALT [Catalytic activity/Vol] 21 U/L Normal 16-63 [facility] Comment on above: Performed By: #### H BSANS #### [facility] [address] [place] [address] Dr. Shilo Lam Anion gap [Moles/Vol] 14.7 mmol/L Normal [facility] Comment on above: Performed By: #### H BSANS #### [facility] [address] [address] [address] Shlio Lam AST [Catalytic activity/Vol] 19 U/L Normal 15-37 [facility] Comment on above: Performed By: #### H BSANS #### [facility] [address] [address] [address] Shilo Lam Bilirubin [Mass/Vol] 0.6 mg/dL Normal 0.2-1.0 [facility] Comment on above: Performed By: #### H BSANS #### [facility] [address] [address] [address] Shilo Lam Calcium [Mass/Vol] 8.4 mg/dL Critically low 8.5-10.1 [facility] Comment on above: Performed By: #### H BSANS #### [facility] [address] [place] [address] Dr. Shilo Lam Chloride [Moles/Vol] 109 mmol/L Critically high 98-107 [facility] Comment on above: Performed By: #### H BSANS #### [facility] [address] [address] [address] Shilo Lam CO2 [Moles/Vol] 20.4 mmol/L Critically low 21.0-32.0 [facility] Comment on above: Performed By: #### H BSANS #### [facility] [address] [address] [address] Shilo Lam Creatinine [Mass/Vol] 3.71 mg/dL Critically high 0.70-1.30 [facility] Comment on above: Performed By: #### H BSANS #### [facility] [address] [address] [address] Shilo Lam EGFR-AF BERMUDIAN 21 mL/min/1.73m2 Critically low >=60 [facility] Comment on above: Performed By: #### H BSANS #### [facility] [address] [address] [address] Shilo Lam EGFR-NON AF BERMUDIAN 17 mL/min/1.73m2 Critically low >=60 [facility] Comment on above: Performed By: #### H BSANS #### [facility] [address] [address] [address] Shilo Lam Globulin (S) [Mass/Vol] 4.5 g/dL Normal [facility] Comment on above: Performed By: #### H BSANS #### [facility] [address] [address] [address] Shilo Lam Glucose [Mass/Vol] 87 mg/dL Normal 74-106 [facility] Comment on above: Performed By: #### H BSANS #### [facility] [address] [address] [address] Shilo Lam Potassium [Moles/Vol] 4.1 mmol/L Normal 3.5-5.1 [facility] Comment on above: Performed By: #### H BSANS #### [facility] [address] [place] [address] Dr. Shilo Lam Protein [Mass/Vol] 7.4 g/dL Normal 6.4-8.2 [facility] Comment on above: Performed By: #### H BSANS #### [facility] [address] [place] [address] Dr. Shilo Lam Sodium [Moles/Vol] 140 mmol/L Normal 136-145 [facility] Comment on above: Performed By: #### H BSANS #### [facility] [address] [place] [address] Dr. Shilo Lam Urea nitrogen [Mass/Vol] 53.0 mg/dL Critically high 7.0-18.0 [facility] Comment on above: Performed By: #### H BSANS #### [facility] [address] [place] [address] Dr. Shilo Lam Urea nitrogen/Creatinine [Mass ratio] 14.3 mg/mg Normal [facility] Comment on above: Performed By: #### H BSANS #### [facility] [address] [place] [address] Dr. Shilo Lam UA RANDOMon 12-04-2021 Bilirubin Ql (U) Negative Normal NEGATIVE [facility] Comment on above: Performed By: #### H H #### [facility] [address] [place] [address] Dr. Shilo Lam Clarity (U) CLEAR Normal CLEAR [facility] Comment on above: Performed By: #### H H #### [facility] [address] [place] [address] Dr. Shilo Lam Color (U) YELLOW Normal YELLOW [facility] Comment on above: Performed By: #### H H #### [facility] [address] [place] [address] Dr. Shilo Lam Glucose Ql (U) Negative Normal NEGATIVE [facility] Comment on above: Performed By: #### H H #### [facility] [address] [place] [address] Dr. Shilo Lam Hemoglobin Ql (U) Negative Normal NEGATIVE [facility] Comment on above: Performed By: #### H H #### [facility] [address] [place] [address] Dr. Shilo Lam Ketones Ql (U) Negative Normal NEGATIVE [facility] Comment on above: Performed By: #### H H #### [facility] [address] [place] [address] Dr. Shilo Lam LEUKOCYTES Negative Normal NEGATIVE [facility] Comment on above: Performed By: #### H H #### [facility] [address] [place] [address] Dr. Shilo Lam Nitrite Ql (U) Negative Normal NEGATIVE [facility] Comment on above: Performed By: #### H H #### [facility] [address] [place] [address] Dr. Shilo Lam pH (U) 6.5 [pH] Normal 5-9 [facility] Comment on above: Performed By: #### H H #### [facility] [address] [place] [address] Dr. Shilo Lam SPEC GRAVITY 1.015 Normal 1.005-<=1.025 [facility] Comment on above: Performed By: #### H H #### [facility] [address] [place] [address] Dr. Shilo Lam UA PROTEIN Negative Normal NEGATIVE/ TRACE [facility] Comment on above: Performed By: #### H H #### [facility] [address] [place] [address] Dr. Shilo Lam Urobilinogen Qn (U) 0.2 {Gama'U}/dL Normal 0.2 - 1. 0 [facility] Comment on above: Performed By: #### H H #### [facility] [address] [place] [address] Dr. Shilo Lam URIC ACID SERUMon 12-04-2021 Urate [Mass/Vol] 5.6 mg/dL Normal 3.5-7.2 [facility] Comment on above: Performed By: #### H BSANS #### [facility] [address] [place] [address] Dr. Shilo Lam URINE T PROTEIN CREAT RATIOo n 12-04-2021 Protein (U) [Mass/Vol] 648.0 mg/dL Critically high <=12.0 [facility] Comment on above: Performed By: #### V ITAD, FERR, FETIBC, B12FOL #### [facility] [address] [place] [address] Dr. Shilo Lam UR PROT CREAT RAT 11.10 Normal [facility] Comment on above: Performed By: #### V ITAD, FERR, FETIBC, B12FOL #### [facility] [address] [place] [address] Dr. Shilo Lam URINE CREAT 58.37 mg/dL Normal 20.00-300.00 [facility] Comment on above: Performed By: #### V ITAD, FERR, FETIBC, B12FOL #### [facility] [address] [place] [address] Dr. Shilo Lam VIT B12 AND FOLATEon 022 Cobalamin (Vitamin B12) [Mass/Vol] 600.0 pg/mL Normal 193.0-986.0 [facility] Comment on above: Performed By: #### H BSANS #### [facility] [address] [place] [address] Dr. Shilo Lam FOLATE 9.00 ng/mL Normal 8.60-58.90 [facility] Comment on above: Performed By: #### H BSANS #### [facility] [address] [place], [place] [address] Dr. Shilo Lam CBC W Auto Differential pane l (Bld)on 12-03-2021 Basophils (Bld) [#/Vol] 0.03 10*3/uL Normal <0.11 [facility] Comment on above: Order Comment: Speci men Type: BLOOD SPECIMENOrdering Facility: [facility] Address: [address] [place] [address] Performed By: #### 5 7021-8 ####[facility] LABCLIA [id number] [place] [address] Basophils/100 WBC (Bld) 0.4 % Normal [facility] Comment on above: Order Comment: Speci men Type: BLOOD SPECIMENOrdering Facility: [facility] Address: [address] [place] [address] Performed By: #### 5 7021-8 ####[facility] LABCLIA [id number] [place] [address] Differential cell count method Nom (Bld) Auto Normal [facility] Comment on above: Order Comment: Speci men Type: BLOOD SPECIMENOrdering Facility: [facility] Address: [address] [place] [address] Performed By: #### 5 7021-8 ####[facility] LABCLIA [id number] [place] [address] Eosinophils (Bld) [#/Vol] 0.24 10*3/uL Normal <0.46 [facility] Comment on above: Order Comment: Speci men Type: BLOOD SPECIMENOrdering Facility: [facility] Address: [address] [place] [address] Performed By: #### 5 7021-8 ####[facility] LABCLIA [id number] [place] [address] Eosinophils/100 WBC (Bld) 3.5 % Normal [facility] Comment on above: Order Comment: Speci men Type: BLOOD SPECIMENOrdering Facility: [facility] Address: [address] [place] [address] Performed By: #### 5 7021-8 ####[facility] LABCLIA [id number] [place] [address] Erythrocyte distribution width (RBC) [Ratio] 15.4 % High 11.5-15.0 [facility] Comment on above: Order Comment: Speci men Type: BLOOD SPECIMENOrdering Facility: [facility] Address: [address] [place] [address] Performed By: #### 5 7021-8 ####[facility] LABCLIA [id number] [place] [address] Hematocrit (Bld) [Volume fraction] 36.6 % Low 39.0-51.0 [facility] Comment on above: Order Comment: Speci men Type: BLOOD SPECIMENOrdering Facility: [facility] Address: [address] [place] [address] Performed By: #### 5 7021-8 ####[facility] LABCLIA [id number] [place] [address] Hemoglobin (Bld) [Mass/Vol] 11.8 g/dL Low 13.0-17.0 [facility] Comment on above: Order Comment: Speci men Type: BLOOD SPECIMENOrdering Facility: [facility] Address: [address] [place] [address] Performed By: #### 5 7021-8 ####[facility] LABCLIA [id number] [place] [address] IMMATURE GRAN % 0.3 % Normal [facility] Comment on above: Order Comment: Speci men Type: BLOOD SPECIMENOrdering Facility: [facility] Address: [address] [place] [address] Performed By: #### 5 7021-8 ####[facility] LABCLIA [id number] [place] [address] IMMATURE GRAN ABS <0.03 Normal <0.10 [facility] Comment on above: Order Comment: Speci men Type: BLOOD SPECIMENOrdering Facility: [facility] Address: [address] [place] [address] Performed By: #### 5 7021-8 ####[facility] LABCLIA [id number] [place] [address] Lymphocytes (Bld) [#/Vol] 0.72 10*3/uL Low 1.00-4.00 [facility] Comment on above: Order Comment: Speci men Type: BLOOD SPECIMENOrdering Facility: [facility] Address: [address] [place] [address] Performed By: #### 5 7021-8 ####[facility] LABCLIA [id number] [place] [address] Lymphocytes/100 WBC (Bld) 10.6 % Normal [facility] Comment on above: Order Comment: Speci men Type: BLOOD SPECIMENOrdering Facility: [facility] Address: [address] [place] [address] Performed By: #### 5 7021-8 ####[facility] LABCLIA [id number] [place] [address] MCH (RBC) [Entitic mass] 27.8 pg Normal 26.0-34.0 [facility] Comment on above: Order Comment: Speci men Type: BLOOD SPECIMENOrdering Facility: [facility] Address: [address] [place] [address] Performed By: #### 5 7021-8 ####[facility] LABCLIA [id number] [place] [address] MCHC (RBC) [Mass/Vol] 32.2 g/dL Normal 30.5-36.0 [facility] Comment on above: Order Comment: Speci men Type: BLOOD SPECIMENOrdering Facility: [facility] Address: [address] [place] [address] Performed By: #### 5 7021-8 ####[facility] LABIA [id number] [place] [address] MCV (RBC) [Entitic vol] 86.3 fL Normal 80.0-100.0 [facility] Comment on above: Order Comment: Speci men Type: BLOOD SPECIMENOrdering Facility: [facility] Address: [address] [place] [address] Performed By: #### 5 7021-8 ####[facility] LABIA [id number] [place] [address] Monocytes (Bld) [#/Vol] 0.82 10*3/uL Normal <0.87 [facility] Comment on above: Order Comment: Speci men Type: BLOOD SPECIMENOrdering Facility: [facility] Address: [address] [place] [address] Performed By: #### 5 7021-8 ####[facility] LABIA [id number] [place] [address] Monocytes/100 WBC (Bld) 12.1 % Normal [facility] Comment on above: Order Comment: Speci men Type: BLOOD SPECIMENOrdering Facility: [facility] Address: [address] [place], [place] [address] Performed By: #### 5 7021-8 ####[facility] LABIA [id number] [place] [address] Neutrophils (Bld) [#/Vol] 4.95 10*3/uL Normal 1.45-7.50 [facility] Comment on above: Order Comment: Speci men Type: BLOOD SPECIMENOrdering Facility: [facility] Address: [address] [place] [address] Performed By: #### 5 7021-8 ####[facility] LABCLIA [id number] [place] [address] Neutrophils/100 WBC (Bld) 73.1 % Normal [facility] Comment on above: Order Comment: Speci men Type: BLOOD SPECIMENOrdering Facility: [facility] Address: [address] [place] [address] Performed By: #### 5 7021-8 ####[facility] LABCLIA [id number] [place] [address] Nucleated RBC (Bld) [#/Vol] 10*3/uL Normal <0.01 [facility] Comment on above: Order Comment: Speci men Type: BLOOD SPECIMENOrdering Facility: [facility] Address: [address] [place] [address] Performed By: #### 5 7021-8 ####[facility] LABIA [id number] [place] [address] Nucleated RBC/100 WBC (Bld) [Ratio] 0.0 /100 WBC Normal [facility] Comment on above: Order Comment: Speci men Type: BLOOD SPECIMENOrdering Facility: [facility] Address: [address] [place] [address] Performed By: #### 5 7021-8 ####[facility] LABIA [id number] [place] [address] Platelet mean volume (Bld) [Entitic vol] 9.9 fL Normal 9.0-12.7 [facility] Comment on above: Order Comment: Speci men Type: BLOOD SPECIMENOrdering Facility: [facility] Address: [address] [place] [address] Performed By: #### 5 7021-8 ####[facility] LABCLIA [id number] [place] [address] Platelets (Bld) [#/Vol] 136 10*3/uL Low 150-400 [facility] Comment on above: Order Comment: Speci men Type: BLOOD SPECIMENOrdering Facility: [facility] Address: [address] [place], [place] [address] Performed By: #### 5 7021-8 ####[facility] LABIA [id number] [place] [address] RBC (Bld) [#/Vol] 4.24 10*6/uL Normal 4.20-6.00 [facility] Comment on above: Order Comment: Speci men Type: BLOOD SPECIMENOrdering Facility: [facility] Address: [address] [place], [place] [address] Performed By: #### 5 7021-8 ####[facility] LABIA [id number] [place] [address] WBC (Bld) [#/Vol] 6.78 10*3/uL Normal 3.70-11.00 [facility] Comment on above: Order Comment: Speci men Type: BLOOD SPECIMENOrdering Facility: [facility] Address: [address] [place], [place] [address] Performed By: #### 5 7021-8 ####[facility] LABIA [id number] [place] [address] CNOVSPon 12-03-2021 OVS Visit (SP) Office ([facility]) GOPAL YATES JR ([id number]) 1965 M Date Time Provider Department 12/03/21 2:00 PM MONIK DOTSON During your visit today, we recorded the following information about you: Temperature Pulse Respiration Blood pressure 97.6 degrees 60/minute 16/minute 142/69 Weight Height 89.6 kg 1.93 m Monik Dotson APRN.GLOBAL CLIMATE CHANGE RESEARCHER 12/03/2021 2:17 PM Signed NAME: Gopal Yates CLINIC NO.: [id number] DATE OF SERVICE: December 03, 2021 Referring Provider: Dr. Douglas Juárez (Elements copied from Dr. Rojas note dated October 02, 2021, have been reviewed and updated where appropriate, and all reflect current assessment and medical decision making during today's encounter, December 03, 2021) Additional Clinicians involved in Gopal Yates JR's care: DIAGNOSIS: Elevated Matt:Lambda light chains CKD induced anemia ASSESSMENT: 56 year old gentleman with longstanding and poorly controlled T2DM and HTN with renal failure. CKD induced anemia underwent lab workup for possible underlying primary marrow conditions that were negative. PLAN: 1. No Aranesp today. Hemoglobin 11.8. 2. Follow up in 2 weeks for labs and possible Aranesp. 3. Will obtain records from [facility] [place] mainly interested in IV Iron dates. CURRENT TREATMENT: 12/04/2020 Aranesp 200 mcg initiated. - HPI: CASE HISTORY: Updated Visit, December 03, 2021: Gopal Yates JR returns today for follow-up. Aranesp 200 mcg initiated on 10/22/2021. To date, he has had 3 Aranesp injections. He still complains of feeling cold and tired. He denies any signs of bleeding. He states that he has completed 5 doses of IV iron at [facility] [place]. Initial Visit, October 02, 2021: Gopal Yates JR presents today Hematology and Oncology evaluation. He is a 56 year old male who has a chronic history of T2DM and HTN. He has neuropathy and Renal failure as well as anemia that is most likely associated. Cold and fatigued and weak. 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 - REVIEW OF SYSTEMS Per HPI and otherwise negative by full review of organ systems. - ECOG PERFORMANCE STATUS: 0 PHYSICAL EXAMINATION: Vitals: BP 142/69 Pulse 60 Temp (Src) 97.6 (Temporal) Resp 16 Ht 6' 3.984 (1.93m) Wt 197 lb 9.6 oz (89.6kg) SpO2 98% BMI 24.06 kg/(m2). Body surface area is 2.19 meters squared. Exam limited to gross visualization where appropriate due to COVID-19. Gen.: This is an age-appropriate patient in no acute distress. Head: Appears atraumatic with no visible lesions. Eyes: Pupils equally round and reactive to light, extraocular muscles are intact. Neck: Supple. Mouth: Masked. Respiratory: Appears to be respiring comfortably. Neurologic: Nonfocal to gross visualization. Alert and oriented ?3. Psychiatric: No evidence of inappropriate anxiety or depression. Skin: Visible areas of skin without rash, lesions, wounds or petechiae. - ALLERGIES: ALLERGIES Allergen Reactions Sulfa (Sulfonamide * Unknown MEDICATIONS: aspirin 81 mg cap Take by mouth. bumetanide (BUMEX) 2 mg tablet Take 2 mg by mouth once daily. carvedilol (COREG) 25 mg tablet Take 25 mg by mouth twice daily with meals. 1/2 tabstwice daily ferrous sulfate 325 mg (65 mg iron) tablet Take 325 mg by mouth daily with breakfast. hydrALAZINE (APRESOLINE) 50 mg tablet Take 50 mg by mouth three times daily. insulin detemir (LEVEMIR FLEXPEN SUBCUTANEOUS) Inject subcutaneously. levothyroxine 100 mcg cap Take 100 mcg by mouth daily before breakfast. Multivitamin capsule Take 1 capsule by mouth once daily. NIFEdipine XL (ADALAT CC) 30 mg 24 hr tablet Take 30 mg by mouth once daily. potassium chloride (K-TAB) 10 mEq tablet Take 10 mEq by mouth twice daily. Omeprazole Magnesium 20 mg tablet Take 20 mg by mouth once daily. sodium bicarbonate 650 mg tablet Take 650 mg by mouth twice daily. ezetimibe (ZETIA) 10 mg tablet Take 10 mg by mouth once daily. - LABORATORY VALUES: Hemoglobin (g/dL) Date Value 12/03/2021 11.8 Hematocrit (%) Date Value 12/03/2021 36.6 WBC (k/uL) Date Value 12/03/2021 6.78 Platelet Count (k/uL) Date Value 12/03/2021 136 - DIAGNOSIS: Anemia due to stage 4 chronic kidney disease (HCC) - ICD9: 285.21, 585.4, ICD10: N18.4, D63.1 PAST MEDICAL HISTORY Diagnosis Date Anemia Anemia due to stage 3b chronic kidney disease (HCC) 10/08 (more content not included)... Normal [facility] Comprehensive metabolic 2000 panelon 12-03-2021 Albumin [Mass/Vol] 3.5 g/dL Low 3.9-4.9 [facility] Comment on above: Order Comment: Speci men Type: BLOOD SPECIMENOrdering Facility: [facility] Address: [address] [place] [address] Performed By: #### 2 4323-8 ####[facility] LABCLIA [id number] [place] [address] ALP [Catalytic activity/Vol] 166 U/L High 38-113 [facility] Comment on above: Order Comment: Speci men Type: BLOOD SPECIMENOrdering Facility: [facility] Address: [address] [place] [address] Performed By: #### 2 4323-8 ####[facility] LABCLIA [id number] [place] [address] ALT [Catalytic activity/Vol] 13 U/L Normal 10-54 [facility] Comment on above: Order Comment: Speci men Type: BLOOD SPECIMENOrdering Facility: [facility] Address: [address] [place] [address] Performed By: #### 2 4323-8 ####[facility] LABCLIA [id number] [place] [address] Anion gap [Moles/Vol] 10 mmol/L Normal 9-18 [facility] Comment on above: Order Comment: Speci men Type: BLOOD SPECIMENOrdering Facility: [facility] Address: [address] [place] [address] Performed By: #### 2 4323-8 ####[facility] LABCLIA [id number] [place] [address] AST [Catalytic activity/Vol] 17 U/L Normal 14-40 [facility] Comment on above: Order Comment: Speci men Type: BLOOD SPECIMENOrdering Facility: [facility] Address: [address] [place] [address] Performed By: #### 2 4323-8 ####[facility] LABCLIA [id number] [place] [address] Bilirubin [Mass/Vol] 0.5 mg/dL Normal 0.2-1.3 [facility] Comment on above: Order Comment: Speci men Type: BLOOD SPECIMENOrdering Facility: [facility] Address: [address] [place] [address] Performed By: #### 2 4323-8 ####[facility] LABCLIA [id number] [place] [address] Calcium [Mass/Vol] 8.9 mg/dL Normal 8.5-10.2 [facility] Comment on above: Order Comment: Speci men Type: BLOOD SPECIMENOrdering Facility: [facility] Address: [address] [place] [address] Performed By: #### 2 4323-8 ####[facility] LABCLIA [id number] [place] [address] Chloride [Moles/Vol] 112 mmol/L High 97-105 [facility] Comment on above: Order Comment: Speci men Type: BLOOD SPECIMENOrdering Facility: [facility] Address: [address] [place] [address] Performed By: #### 2 4323-8 ####[facility] LABCLIA [id number] [place] [address] CO2 [Moles/Vol] 20 mmol/L Low 22-30 [facility] Comment on above: Order Comment: Speci men Type: BLOOD SPECIMENOrdering Facility: [facility] Address: [address] [place] [address] Performed By: #### 2 4323-8 ####[facility] LABCLIA [id number] [place] [address] Creatinine [Mass/Vol] 3.74 mg/dL High 0.73-1.22 [facility] Comment on above: Order Comment: Speci men Type: BLOOD SPECIMENOrdering Facility: [facility] Address: [address] [place] [address] Performed By: #### 2 4323-8 ####[facility] LABCLIA [id number] [place] [address] ESTIMATED GLOMERULAR FILTRATION RATE 18 mL/min/1.73m??? Low >=60 [facility] Comment on above: Order Comment: Fabi mcdonnell Type: BLOOD SPECIMENOrdering Facility: [facility] Address: [address] [place] [address] Result Comment: Trixie mated Glomerular Filtration Rate (eGFR) is calculated using the 2020 CKD-EPI creatinine equation. This equation utilizes serum creatinine, sex, and age as parameters. The creatinine assay has traceable calibration to isotope dilution-mass spectrometry. Refer to KDIGO guidelines for clinical interpretation. In patients with unstable renal function, e.g. those with acute kidney injury, the eGFR may not accurately reflect actual GFR. Performed By: #### 2 4323-8 ####[facility] LABCLIA [id number] [place] [address] Glucose [Mass/Vol] 111 mg/dL High 74-99 [facility] Comment on above: Order Comment: Fabi mcdonnell Type: BLOOD SPECIMENOrdering Facility: [facility] Address: [address] [place] [address] Result Comment: The [place] [employer] (ADA) provides guidance for cutoff values for fasting glucose and random glucose. The ADA defines fasting as no caloric intake for at least 8 hours. Fasting plasma glucose results between 100 to 125 mg/dL indicate increased risk for diabetes (prediabetes). Fasting plasma glucose results greater than or equal to 126 mg/dL meet the criteria for diagnosis of diabetes. In the absence of unequivocal hyperglycemia, results should be confirmed by repeat testing. In a patient with classic symptoms of hyperglycemia or hyperglycemic crisis, random plasma glucose results greater than or equal to 200 mg/dL meet the criteria for diagnosis of diabetes. Reference: Standards of Medical Care in Diabetes 2016, [place] [employer]. Diabetes Care. 2016.39(Suppl 1). Performed By: #### 2 4323-8 ####[facility] LABCLIA [id number] [place] [address] Potassium [Moles/Vol] 4.1 mmol/L Normal 3.7-5.1 [facility] Comment on above: Order Comment: Speci men Type: BLOOD SPECIMENOrdering Facility: [facility] Address: [address] [place] [address] Performed By: #### 2 4323-8 ####[facility] LABCLIA [id number] [place] [address] Protein [Mass/Vol] 6.6 g/dL Normal 6.3-8.0 [facility] Comment on above: Order Comment: Speci men Type: BLOOD SPECIMENOrdering Facility: [facility] Address: [address] [place] [address] Performed By: #### 2 4323-8 ####[facility] LABIA [id number] [place] [address] Sodium [Moles/Vol] 142 mmol/L Normal 136-144 [facility] Comment on above: Order Comment: Speci men Type: BLOOD SPECIMENOrdering Facility: [facility] Address: [address] [place] [address] Performed By: #### 2 4323-8 ####[facility] LABCLIA [id number] [place] [address] Urea nitrogen [Mass/Vol] 52 mg/dL High 9-24 [facility] Comment on above: Order Comment: Speci men Type: BLOOD SPECIMENOrdering Facility: [facility] Address: [address] [place] [address] Performed By: #### 2 4323-8 ####[facility] LABIA [id number] [place] [address] CBC W Auto Differential pane l (Bld)on 11-19-2021 Basophils (Bld) [#/Vol] 10*3/uL Normal <0.11 [facility] Comment on above: Order Comment: Speci men Type: BLOOD SPECIMEN [facility] Address: [address] [address] Performed By: #### 5 7021-8 #### [facility] CLIA [id number] [address] [place] [address] Basophils/100 WBC (Bld) 0.4 % Normal [facility] Comment on above: Order Comment: Speci men Type: BLOOD SPECIMEN [facility] Address: [address] [place] [address] Performed By: #### 5 7021-8 #### [facility] CLIA [id number] [address] [place] [address] Differential cell count method Nom (Bld) Auto Normal [facility] Comment on above: Order Comment: Speci men Type: BLOOD SPECIMEN [facility] Address: [address] [place] [address] Performed By: #### 5 7021-8 #### [facility] CLIA [id number] [address] [place] [address] Eosinophils (Bld) [#/Vol] 0.16 10*3/uL Normal <0.46 [facility] Comment on above: Order Comment: Speci men Type: BLOOD SPECIMEN [facility] Address: [address] [place] [address] Performed By: #### 5 7021-8 #### [facility] CLIA [id number] [address] [place] [address] Eosinophils/100 WBC (Bld) 2.8 % Normal [facility] Comment on above: Order Comment: Speci men Type: BLOOD SPECIMEN [facility] Address: [address] [place] [address] Performed By: #### 5 7021-8 #### [facility] CLIA [id number] [address] [place] [address] Erythrocyte distribution width (RBC) [Ratio] 15.5 % High 11.5-15.0 [facility] Comment on above: Order Comment: Speci men Type: BLOOD SPECIMEN [facility] Address: [address] [place] [address] Performed By: #### 5 7021-8 #### [facility] CLIA [id number] [address] [place] [address] Hematocrit (Bld) [Volume fraction] 31.7 % Low 39.0-51.0 [facility] Comment on above: Order Comment: Speci men Type: BLOOD SPECIMEN [facility] Address: [address] [place] [address] Performed By: #### 5 7021-8 #### [facility] CLIA [id number] [address] [place] [address] Hemoglobin (Bld) [Mass/Vol] 10.2 g/dL Low 13.0-17.0 [facility] Comment on above: Order Comment: Speci men Type: BLOOD SPECIMEN [facility] Address: [address] [place] [address] Performed By: #### 5 7021-8 #### [facility] CLIA [id number] [address] [place] [address] IMMATURE GRAN % 0.4 % Normal [facility] Comment on above: Order Comment: Speci men Type: BLOOD SPECIMEN [facility] Address: [address] [place] [address] Performed By: #### 5 7021-8 #### [facility] CLIA [id number] [address] [place] [address] 23268 IMMATURE GRAN ABS <0.03 Normal <0.10 [facility] Comment on above: Order Comment: Speci men Type: BLOOD SPECIMEN [facility] Address: [address] [place] [address] Performed By: #### 5 7021-8 #### [facility] CLIA [id number] [address] [place] [address] Lymphocytes (Bld) [#/Vol] 0.66 10*3/uL Low 1.00-4.00 [facility] Comment on above: Order Comment: Speci men Type: BLOOD SPECIMEN [facility] Address: [address] [place] [address] Performed By: #### 5 7021-8 #### [facility] CLIA [id number] [address] [place] [address] 28[address] Lymphocytes/100 WBC (Bld) 11.6 % Normal [facility] Comment on above: Order Comment: Speci men Type: BLOOD SPECIMEN [facility] Address: [address] [place] [address] Performed By: #### 5 7021-8 #### [facility] CLIA [id number] [address] [place] [address] 71069 MCH (RBC) [Entitic mass] 27.6 pg Normal 26.0-34.0 [facility] Comment on above: Order Comment: Speci men Type: BLOOD SPECIMEN [facility] Address: [address] [place] [address] Performed By: #### 5 7021-8 #### [facility] CLIA [id number] [address] [place] [address] MCHC (RBC) [Mass/Vol] 32.2 g/dL Normal 30.5-36.0 [facility] Comment on above: Order Comment: Speci men Type: BLOOD SPECIMEN [facility] Address: [address] [place] [address] Performed By: #### 5 7021-8 #### [facility] CLIA [id number] [address] [place] [address] 36546 MCV (RBC) [Entitic vol] 85.7 fL Normal 80.0-100.0 [facility] Comment on above: Order Comment: Speci men Type: BLOOD SPECIMEN [facility] Address: [address] [place] [address] Performed By: #### 5 7021-8 #### [facility] CLIA [id number] [address] [place] [address] 63462 Monocytes (Bld) [#/Vol] 0.70 10*3/uL Normal <0.87 [facility] Comment on above: Order Comment: Speci men Type: BLOOD SPECIMEN [facility] Address: [address] [place] [address] Performed By: #### 5 7021-8 #### [facility] CLIA [id number] [address] [place] [address] 97757 Monocytes/100 WBC (Bld) 12.3 % Normal [facility] Comment on above: Order Comment: Speci men Type: BLOOD SPECIMEN [facility] Address: [address] [place] [address] Performed By: #### 5 7021-8 #### [facility] CLIA [id number] [address] [place] [address] 61683 Neutrophils (Bld) [#/Vol] 4.12 10*3/uL Normal 1.45-7.50 [facility] Comment on above: Order Comment: Speci men Type: BLOOD SPECIMEN [facility] Address: [address] [place] [address] Performed By: #### 5 7021-8 #### [facility] CLIA [id number] [address] [place] [address] 99012 Neutrophils/100 WBC (Bld) 72.5 % Normal [facility] Comment on above: Order Comment: Speci men Type: BLOOD SPECIMEN [facility] Address: [address] [place] [address] Performed By: #### 5 7021-8 #### [facility] CLIA [id number] [address] [place] [address]5555 Nucleated RBC (Bld) [#/Vol] 10*3/uL Normal <0.01 [facility] Comment on above: Order Comment: Speci men Type: BLOOD SPECIMEN [facility] Address: [address] [place], [place] [address] Performed By: #### 5 7021-8 #### [facility] CLIA [id number] [address] [place] [address] 58914 Nucleated RBC/100 WBC (Bld) [Ratio] 0.0 /100 WBC Normal [facility] Comment on above: Order Comment: Speci men Type: BLOOD SPECIMEN [facility] Address: [address] [place], [place] [address] Performed By: #### 5 7021-8 #### [facility] CLIA [id number] [address] [place] [address] 13213 Platelet mean volume (Bld) [Entitic vol] 10.0 fL Normal 9.0-12.7 [facility] Comment on above: Order Comment: Speci men Type: BLOOD SPECIMEN [facility] Address: [address] [place] [address] Performed By: #### 5 7021-8 #### [facility] CLIA [id number] [address] [place] [address] 46149 Platelets (Bld) [#/Vol] 146 10*3/uL Low 150-400 [facility] Comment on above: Order Comment: Speci men Type: BLOOD SPECIMEN [facility] Address: [address] [place], [place] [address] Performed By: #### 5 7021-8 #### [facility] CLIA [id number] [address] [place] [address]508 RBC (Bld) [#/Vol] 3.70 10*6/uL Low 4.20-6.00 [facility] Comment on above: Order Comment: Speci men Type: BLOOD SPECIMEN [facility] Address: [address] [place], [place] [address] Performed By: #### 5 7021-8 #### [facility] CLIA [id number] [address] [place] [address] WBC (Bld) [#/Vol] 5.68 10*3/uL Normal 3.70-11.00 [facility] Comment on above: Order Comment: Speci men Type: BLOOD SPECIMEN [facility] Address: [address] [place] [address] Performed By: #### 5 7021-8 #### [facility] CLIA [id number] [address] [place] [address] 74271 Comprehensive metabolic 2000 panelon 11-19-2021 Albumin [Mass/Vol] 3.4 g/dL Low 3.9-4.9 [facility] Comment on above: Order Comment: Speci men Type: BLOOD SPECIMENOrdering Facility: [facility] Address: [address] [place] [address] Performed By: #### 2 4323-8 ####[facility] LABCLIA [id number] [place] [address] ALP [Catalytic activity/Vol] 187 U/L High 38-113 [facility] Comment on above: Order Comment: Speci men Type: BLOOD SPECIMENOrdering Facility: [facility] Address: [address] [place] [address] Performed By: #### 2 4323-8 ####[facility] LABCLIA [id number] [place] [address] ALT [Catalytic activity/Vol] 17 U/L Normal 10-54 [facility] Comment on above: Order Comment: Speci men Type: BLOOD SPECIMENOrdering Facility: [facility] Address: [address] [place] [address] Performed By: #### 2 4323-8 ####[facility] LABCLIA [id number] [place] [address] Anion gap [Moles/Vol] 9 mmol/L Normal 9-18 [facility] Comment on above: Order Comment: Speci men Type: BLOOD SPECIMENOrdering Facility: [facility] Address: [address] [place] [address] Performed By: #### 2 4323-8 ####[facility] LABCLIA [id number] [place] [address] AST [Catalytic activity/Vol] 20 U/L Normal 14-40 [facility] Comment on above: Order Comment: Speci men Type: BLOOD SPECIMENOrdering Facility: [facility] Address: [address] [place] [address] Performed By: #### 2 4323-8 ####[facility] LABCLIA [id number] [place] [address] Bilirubin [Mass/Vol] 0.5 mg/dL Normal 0.2-1.3 [facility] Comment on above: Order Comment: Speci men Type: BLOOD SPECIMENOrdering Facility: [facility] Address: [address] [place] [address] Performed By: #### 2 4323-8 ####[facility] LABCLIA [id number] [place] [address] Calcium [Mass/Vol] 8.5 mg/dL Normal 8.5-10.2 [facility] Comment on above: Order Comment: Speci men Type: BLOOD SPECIMENOrdering Facility: [facility] Address: [address] [place], [place] [address] Performed By: #### 2 4323-8 ####[facility] LABCLIA [id number] [place] [address] Chloride [Moles/Vol] 110 mmol/L High 97-105 [facility] Comment on above: Order Comment: Speci men Type: BLOOD SPECIMENOrdering Facility: [facility] Address: [address] [place], [place] [address] Performed By: #### 2 4323-8 ####[facility] LABCLIA [id number] [place] [address] CO2 [Moles/Vol] 20 mmol/L Low 22-30 [facility] Comment on above: Order Comment: Speci men Type: BLOOD SPECIMENOrdering Facility: [facility] Address: [address] [place] [address] Performed By: #### 2 4323-8 ####[facility] LABCLIA [id number] [place] [address] Creatinine [Mass/Vol] 3.60 mg/dL High 0.73-1.22 [facility] Comment on above: Order Comment: Speci men Type: BLOOD SPECIMENOrdering Facility: [facility] Address: [address] [place] [address] Performed By: #### 2 4323-8 ####[facility] LABCLIA [id number] [place] [address] ESTIMATED GLOMERULAR FILTRATION RATE 19 mL/min/1.73m??? Low >=60 [facility] Comment on above: Order Comment: Speci men Type: BLOOD SPECIMENOrdering Facility: [facility] Address: [address] [place] [address] Result Comment: Trixie mated Glomerular Filtration Rate (eGFR) is calculated using the 2020 CKD-EPI creatinine equation. This equation utilizes serum creatinine, sex, and age as parameters. The creatinine assay has traceable calibration to isotope dilution-mass spectrometry. Refer to KDIGO guidelines for clinical interpretation. In patients with unstable renal function, e.g. those with acute kidney injury, the eGFR may not accurately reflect actual GFR. Performed By: #### 2 4323-8 ####[facility] LABCLIA [id number] [place] [address] Glucose [Mass/Vol] 98 mg/dL Normal 74-99 [facility] Comment on above: Order Comment: Speci men Type: BLOOD SPECIMENOrdering Facility: [facility] Address: [address] [place] [address] [place] [address] Result Comment: The [place] Diabetes [employer] (ADA) provides guidance for cutoff values for fasting glucose and random glucose. The ADA defines fasting as no caloric intake for at least 8 hours. Fasting plasma glucose results between 100 to 125 mg/dL indicate increased risk for diabetes (prediabetes). Fasting plasma glucose results greater than or equal to 126 mg/dL meet the criteria for diagnosis of diabetes. In the absence of unequivocal hyperglycemia, results should be confirmed by repeat testing. In a patient with classic symptoms of hyperglycemia or hyperglycemic crisis, random plasma glucose results greater than or equal to 200 mg/dL meet the criteria for diagnosis of diabetes. Reference: Standards of Medical Care in Diabetes 2016, [place] [employer]. Diabetes Care. 2016.39(Suppl 1). Performed By: #### 2 4323-8 ####[facility] LABCLIA [id number] [place] [address] Potassium [Moles/Vol] 4.2 mmol/L Normal 3.7-5.1 [facility] Comment on above: Order Comment: Speci men Type: BLOOD SPECIMENOrdering Facility: [facility] Address: [address] Performed By: #### 2 4323-8 ####[facility] LABCLIA [id number] [place] [address] Protein [Mass/Vol] 6.7 g/dL Normal 6.3-8.0 [facility] Comment on above: Order Comment: Speci men Type: BLOOD SPECIMENOrdering Facility: [facility] Address: [address] Performed By: #### 2 4323-8 ####[facility] LABCLIA [id number] [place] [address] Sodium [Moles/Vol] 139 mmol/L Normal 136-144 [facility] Comment on above: Order Comment: Speci men Type: BLOOD SPECIMENOrdering Facility: [facility] Address: [address] [id number] Performed By: #### 2 4323-8 ####[facility] LABCLIA [id number] [place] [address] Urea nitrogen [Mass/Vol] 49 mg/dL High 9-24 [facility] Comment on above: Order Comment: Speci men Type: BLOOD SPECIMENOrdering Facility: [facility] Address: [address] [place] [address] Performed By: #### 2 4323-8 ####[facility] LABCLIA [id number] [place] [address] CBC W Auto Differential pane l (Bld)on 11-05-2021 Basophils (Bld) [#/Vol] 0.03 10*3/uL Normal <0.11 [facility] Comment on above: Order Comment: Speci men Type: BLOOD SPECIMENOrdering Facility: [facility] Address: [address] [place] [address] Performed By: #### 5 7021-8 ####[facility] LABCLIA [id number] [place] [address] Basophils/100 WBC (Bld) 0.5 % Normal [facility] Comment on above: Order Comment: Speci men Type: BLOOD SPECIMENOrdering Facility: [facility] Address: [address] [place] [address] Performed By: #### 5 7021-8 ####[facility] LABCLIA [id number] [place] [address] Differential cell count method Nom (Bld) Auto Normal [facility] Comment on above: Order Comment: Speci men Type: BLOOD SPECIMENOrdering Facility: [facility] Address: [address] [place] [address] Performed By: #### 5 7021-8 ####[facility] LABCLIA [id number] [place] [address] Eosinophils (Bld) [#/Vol] 0.22 10*3/uL Normal <0.46 [facility] Comment on above: Order Comment: Speci men Type: BLOOD SPECIMENOrdering Facility: [facility] Address: [address] [place] [address] Performed By: #### 5 7021-8 ####[facility] [id number] [place] [address] Eosinophils/100 WBC (Bld) 3.7 % Normal [facility] Comment on above: Order Comment: Speci men Type: BLOOD SPECIMENOrdering Facility: [facility] Address: [address] [place] [address] Performed By: #### 5 7021-8 ####[facility] LABCLIA [id number] [place] [address] Erythrocyte distribution width (RBC) [Ratio] 16.0 % High 11.5-15.0 [facility] Comment on above: Order Comment: Speci men Type: BLOOD SPECIMENOrdering Facility: [facility] Address: [address] [place] [address] Performed By: #### 5 7021-8 ####[facility]IA [id number] [place] [address] Hematocrit (Bld) [Volume fraction] 29.0 % Low 39.0-51.0 [facility] Comment on above: Order Comment: Speci men Type: BLOOD SPECIMENOrdering Facility: [facility] Address: [address] [place], [place] [address] Performed By: #### 5 7021-8 ####[facility] LABCLIA [id number] [place] [address] Hemoglobin (Bld) [Mass/Vol] 9.5 g/dL Low 13.0-17.0 [facility] Comment on above: Order Comment: Speci men Type: BLOOD SPECIMENOrdering Facility: [facility] Address: [address] [place] [address] Performed By: #### 5 7021-8 ####[facility]CLIA [id number] [place] [address] IMMATURE GRAN % 0.3 % Normal [facility] Comment on above: Order Comment: Speci men Type: BLOOD SPECIMENOrdering Facility: [facility] Address: [address] [place] [address] Performed By: #### 5 7021-8 ####[facility]CLIA [id number] [place] [address] IMMATURE GRAN ABS <0.03 Normal <0.10 [facility] Comment on above: Order Comment: Speci men Type: BLOOD SPECIMENOrdering Facility: [facility] Address: [address] [place] [address] Performed By: #### 5 7021-8 ####[facility] LABCLIA [id number] [place] [address] Lymphocytes (Bld) [#/Vol] 0.81 10*3/uL Low 1.00-4.00 [facility] Comment on above: Order Comment: Speci men Type: BLOOD SPECIMENOrdering Facility: [facility] Address: [address] [place] [address] Performed By: #### 5 7021-8 ####[facility]IA [id number] [place] [address] Lymphocytes/100 WBC (Bld) 13.7 % Normal [facility] Comment on above: Order Comment: Speci men Type: BLOOD SPECIMENOrdering Facility: [facility] Address: [address] [place] [address] Performed By: #### 5 7021-8 ####[facility] LABIA [id number] [place] [address] MCH (RBC) [Entitic mass] 27.8 pg Normal 26.0-34.0 [facility] Comment on above: Order Comment: Speci men Type: BLOOD SPECIMENOrdering Facility: [facility] Address: [address] [place] [address] Performed By: #### 5 7021-8 ####[facility]CLIA [id number] [place] [address] MCHC (RBC) [Mass/Vol] 32.8 g/dL Normal 30.5-36.0 [facility] Comment on above: Order Comment: Speci men Type: BLOOD SPECIMENOrdering Facility: [facility] Address: [address] [place] [address] Performed By: #### 5 7021-8 ####[facility]CLIA [id number] [place] [address] MCV (RBC) [Entitic vol] 84.8 fL Normal 80.0-100.0 [facility] Comment on above: Order Comment: Speci men Type: BLOOD SPECIMENOrdering Facility: [facility] Address: [address] [place] [address] Performed By: #### 5 7021-8 ####[facility] LABCLIA [id number] [place] [address] Monocytes (Bld) [#/Vol] 0.85 10*3/uL Normal <0.87 [facility] Comment on above: Order Comment: Speci men Type: BLOOD SPECIMENOrdering Facility: [facility] Address: [address] [place] [address] Performed By: #### 5 7021-8 ####[facility]CLIA [id number] [place] [address] Monocytes/100 WBC (Bld) 14.4 % Normal [facility] Comment on above: Order Comment: Speci men Type: BLOOD SPECIMENOrdering Facility: [facility] Address: [address] [place] [address] Performed By: #### 5 7021-8 ####[facility] LABCLIA [id number] [place] [address] Neutrophils (Bld) [#/Vol] 3.97 10*3/uL Normal 1.45-7.50 [facility] Comment on above: Order Comment: Speci men Type: BLOOD SPECIMENOrdering Facility: [facility] Address: [address] [place] [address] Performed By: #### 5 7021-8 ####[facility] LABCLIA [id number] [place] [address] Neutrophils/100 WBC (Bld) 67.4 % Normal [facility] Comment on above: Order Comment: Speci men Type: BLOOD SPECIMENOrdering Facility: [facility] Address: [address] [place] [address] Performed By: #### 5 7021-8 ####[facility] LABCLIA [id number] [place] [address] Nucleated RBC (Bld) [#/Vol] 10*3/uL Normal <0.01 [facility] Comment on above: Order Comment: Speci men Type: BLOOD SPECIMENOrdering Facility: [facility] Address: [address] [place] [address] Performed By: #### 5 7021-8 ####[facility] LABCLIA [id number] [place] [address] Nucleated RBC/100 WBC (Bld) [Ratio] 0.0 /100 WBC Normal [facility] Comment on above: Order Comment: Speci men Type: BLOOD SPECIMENOrdering Facility: [facility] Address: [address] [place] [address] Performed By: #### 5 7021-8 ####[facility] LABCLIA [id number] [place] [address] Platelet mean volume (Bld) [Entitic vol] 10.1 fL Normal 9.0-12.7 [facility] Comment on above: Order Comment: Speci men Type: BLOOD SPECIMENOrdering Facility: [facility] Address: [address] [place] [address] Performed By: #### 5 7021-8 ####[facility] LABCLIA [id number] [place] [address] Platelets (Bld) [#/Vol] 138 10*3/uL Low 150-400 [facility] Comment on above: Order Comment: Speci men Type: BLOOD SPECIMENOrdering Facility: [facility] Address: [address] [place] [address] Performed By: #### 5 7021-8 ####[facility] LABCLIA [id number] [place] [address] RBC (Bld) [#/Vol] 3.42 10*6/uL Low 4.20-6.00 [facility] Comment on above: Order Comment: Speci men Type: BLOOD SPECIMENOrdering Facility: [facility] Address: [address] [place] [address] Performed By: #### 5 7021-8 ####[facility] LABCLIA [id number] [place] [address] WBC (Bld) [#/Vol] 5.90 10*3/uL Normal 3.70-11.00 [facility] Comment on above: Order Comment: Speci men Type: BLOOD SPECIMENOrdering Facility: [facility] Address: [address] [place] [address] Performed By: #### 5 7021-8 ####[facility] LABCLIA [id number] [place] [address] Comprehensive metabolic 2000 panelon 11-05-2021 Albumin [Mass/Vol] 3.3 g/dL Low 3.9-4.9 [facility] Comment on above: Order Comment: Speci men Type: BLOOD SPECIMENOrdering Facility: [facility] Address: [address] [place] [address] Performed By: #### 2 4323-8 ####[facility] LABCLIA [id number] [place] [address] ALP [Catalytic activity/Vol] 196 U/L High 38-113 [facility] Comment on above: Order Comment: Speci men Type: BLOOD SPECIMENOrdering Facility: [facility] Address: [address] [place] [address] Performed By: #### 2 4323-8 ####[facility] LABCLIA [id number] [place] [address] ALT [Catalytic activity/Vol] 19 U/L Normal 10-54 [facility] Comment on above: Order Comment: Speci men Type: BLOOD SPECIMENOrdering Facility: [facility] Address: [address] [place] [address] Performed By: #### 2 4323-8 ####[facility] LABCLIA [id number] [place] [address] Anion gap [Moles/Vol] 9 mmol/L Normal 9-18 [facility] Comment on above: Order Comment: Speci men Type: BLOOD SPECIMENOrdering Facility: [facility] Address: [address] [place] [address] Performed By: #### 2 4323-8 ####[facility] LABCLIA [id number] [place] [address] AST [Catalytic activity/Vol] 24 U/L Normal 14-40 [facility] Comment on above: Order Comment: Speci men Type: BLOOD SPECIMENOrdering Facility: [facility] Address: [address] [place] [address] Performed By: #### 2 4323-8 ####[facility] LABCLIA [id number] [place] [address] Bilirubin [Mass/Vol] 0.5 mg/dL Normal 0.2-1.3 [facility] Comment on above: Order Comment: Speci men Type: BLOOD SPECIMENOrdering Facility: [facility] Address: [address] [address] Performed By: #### 2 4323-8 ####[facility] LABCLIA [id number] [place] [address] Calcium [Mass/Vol] 8.7 mg/dL Normal 8.5-10.2 [facility] Comment on above: Order Comment: Speci men Type: BLOOD SPECIMENOrdering Facility: [facility] Address: [address] [place] [address] Performed By: #### 2 4323-8 ####[facility] LABCLIA [id number] [place] [address] Chloride [Moles/Vol] 111 mmol/L High 97-105 [facility] Comment on above: Order Comment: Speci men Type: BLOOD SPECIMENOrdering Facility: [facility] Address: [address] [place] [address] Performed By: #### 2 4323-8 ####[facility] LABCLIA [id number] [place] [address] CO2 [Moles/Vol] 19 mmol/L Low 22-30 [facility] Comment on above: Order Comment: Speci men Type: BLOOD SPECIMENOrdering Facility: [facility] Address: [address] [place] [address] Performed By: #### 2 4323-8 ####[facility] LABCLIA [id number] [place] [address] Creatinine [Mass/Vol] 3.53 mg/dL High 0.73-1.22 [facility] Comment on above: Order Comment: Speci men Type: BLOOD SPECIMENOrdering Facility: [facility] Address: [address] [place] [address] Performed By: #### 2 4323-8 ####[facility] LABCLIA [id number] [place] [address] ESTIMATED GLOMERULAR FILTRATION RATE 19 mL/min/1.73m??? Low >=60 [facility] Comment on above: Order Comment: Fabi mcdonnell Type: BLOOD SPECIMENOrdering Facility: [facility] Address: [address] [id number] Result Comment: Trixie mated Glomerular Filtration Rate (eGFR) is calculated using the 2020 CKD-EPI creatinine equation. This equation utilizes serum creatinine, sex, and age as parameters. The creatinine assay has traceable calibration to isotope dilution-mass spectrometry. Refer to KDIGO guidelines for clinical interpretation. In patients with unstable renal function, e.g. those with acute kidney injury, the eGFR may not accurately reflect actual GFR. Performed By: #### 2 4323-8 ####[facility] LABCLIA [id number] [place] [address] Glucose [Mass/Vol] 126 mg/dL High 74-99 [facility] Comment on above: Order Comment: Fabi mcdonnell Type: BLOOD SPECIMENOrdering Facility: [facility] Address: [address] [place] [address] Result Comment: The [place] [employer] (ADA) provides guidance for cutoff values for fasting glucose and random glucose. The ADA defines fasting as no caloric intake for at least 8 hours. Fasting plasma glucose results between 100 to 125 mg/dL indicate increased risk for diabetes (prediabetes). Fasting plasma glucose results greater than or equal to 126 mg/dL meet the criteria for diagnosis of diabetes. In the absence of unequivocal hyperglycemia, results should be confirmed by repeat testing. In a patient with classic symptoms of hyperglycemia or hyperglycemic crisis, random plasma glucose results greater than or equal to 200 mg/dL meet the criteria for diagnosis of diabetes. Reference: Standards of Medical Care in Diabetes 2016, [place] [employer]. Diabetes Care. 2016.39(Suppl 1). Performed By: #### 2 4323-8 ####[facility] LABCLIA [id number] [place] [address] Potassium [Moles/Vol] 4.2 mmol/L Normal 3.7-5.1 [facility] Comment on above: Order Comment: Fabi mcdonnell Type: BLOOD SPECIMENOrdering Facility: [facility] Address: [address] [place] [address] Performed By: #### 2 4323-8 ####[facility] LABCLIA [id number] [place] [address] Protein [Mass/Vol] 6.7 g/dL Normal 6.3-8.0 [facility] Comment on above: Order Comment: Speci men Type: BLOOD SPECIMENOrdering Facility: [facility] Address: [address] [place] [address] Performed By: #### 2 4323-8 ####[facility] LABCLIA [id number] [place] [address] Sodium [Moles/Vol] 139 mmol/L Normal 136-144 [facility] Comment on above: Order Comment: Speci men Type: BLOOD SPECIMENOrdering Facility: [facility] Address: [address] [place] [address] Performed By: #### 2 4323-8 ####[facility] LABIA [id number] [place] [address] Urea nitrogen [Mass/Vol] 47 mg/dL High 9-24 [facility] Comment on above: Order Comment: Speci men Type: BLOOD SPECIMENOrdering Facility: [facility] Address: [address] [place] [address] Performed By: #### 2 4323-8 ####[facility] LABCLIA [id number] [place] [address] CBC W Auto Differential pane l (Bld)on 10-22-2021 Basophils (Bld) [#/Vol] 0.04 10*3/uL Normal <0.11 [facility] Comment on above: Order Comment: Speci men Type: BLOOD SPECIMENOrdering Facility: [facility] Address: [address] [place] [address] Performed By: #### 5 7021-8 ####[facility] LABCLIA [id number] [place] [address] Basophils/100 WBC (Bld) 0.7 % Normal [facility] Comment on above: Order Comment: Speci men Type: BLOOD SPECIMENOrdering Facility: [facility] Address: [address] [place] [address] Performed By: #### 5 7021-8 ####[facility] LABCLIA [id number] [place] [address] Differential cell count method Nom (Bld) Auto Normal [facility] Comment on above: Order Comment: Speci men Type: BLOOD SPECIMENOrdering Facility: [facility] Address: [address] [place] [address] Performed By: #### 5 7021-8 ####[facility] LABCLIA [id number] [place] [address] Eosinophils (Bld) [#/Vol] 0.23 10*3/uL Normal <0.46 [facility] Comment on above: Order Comment: Speci men Type: BLOOD SPECIMENOrdering Facility: [facility] Address: [address] [place] [address] Performed By: #### 5 7021-8 ####[facility] LABCLIA [id number] [place] [address] Eosinophils/100 WBC (Bld) 4.1 % Normal [facility] Comment on above: Order Comment: Speci men Type: BLOOD SPECIMENOrdering Facility: [facility] Address: [address] [place] [address] Performed By: #### 5 7021-8 ####[facility] LABCLIA [id number] [place] [address] Erythrocyte distribution width (RBC) [Ratio] 14.4 % Normal 11.5-15.0 [facility] Comment on above: Order Comment: Speci men Type: BLOOD SPECIMENOrdering Facility: [facility] Address: [address] [place] [address] Performed By: #### 5 7021-8 ####[facility] LABCLIA [id number] [place] [address] Hematocrit (Bld) [Volume fraction] 25.6 % Low 39.0-51.0 [facility] Comment on above: Order Comment: Speci men Type: BLOOD SPECIMENOrdering Facility: [facility] Address: [address] [place] [address] Performed By: #### 5 7021-8 ####[facility] LABCLIA [id number] [place] [address] Hemoglobin (Bld) [Mass/Vol] 8.4 g/dL Low 13.0-17.0 [facility] Comment on above: Order Comment: Speci men Type: BLOOD SPECIMENOrdering Facility: [facility] Address: [address] [place] [address] Performed By: #### 5 7021-8 ####[facility] LABCLIA [id number] [place] [address] IMMATURE GRAN % 0.2 % Normal [facility] Comment on above: Order Comment: Speci men Type: BLOOD SPECIMENOrdering Facility: [facility] Address: [address] [place] [address] Performed By: #### 5 7021-8 ####[facility] LABIA [id number] [place] [address] IMMATURE GRAN ABS <0.03 Normal <0.10 [facility] Comment on above: Order Comment: Speci men Type: BLOOD SPECIMENOrdering Facility: [facility] Address: [address] [place] [address] Performed By: #### 5 7021-8 ####[facility] LABCLIA [id number] [place] [address] Lymphocytes (Bld) [#/Vol] 0.69 10*3/uL Low 1.00-4.00 [facility] Comment on above: Order Comment: Speci men Type: BLOOD SPECIMENOrdering Facility: [facility] Address: [address] [place] [address] Performed By: #### 5 7021-8 ####[facility] LABCLIA [id number] [place] [address] Lymphocytes/100 WBC (Bld) 12.3 % Normal [facility] Comment on above: Order Comment: Speci men Type: BLOOD SPECIMENOrdering Facility: [facility] Address: [address] [place] [address] Performed By: #### 5 7021-8 ####[facility] LABCLIA [id number] [place] [address] MCH (RBC) [Entitic mass] 27.5 pg Normal 26.0-34.0 [facility] Comment on above: Order Comment: Speci men Type: BLOOD SPECIMENOrdering Facility: [facility] Address: [address] [place] [address] Performed By: #### 5 7021-8 ####[facility] LABIA [id number] [place] [address] MCHC (RBC) [Mass/Vol] 32.8 g/dL Normal 30.5-36.0 [facility] Comment on above: Order Comment: Speci men Type: BLOOD SPECIMENOrdering Facility: [facility] Address: [address] [place] [address] Performed By: #### 5 7021-8 ####[facility] LABIA [id number] [place] [address] MCV (RBC) [Entitic vol] 83.7 fL Normal 80.0-100.0 [facility] Comment on above: Order Comment: Speci men Type: BLOOD SPECIMENOrdering Facility: [facility] Address: [address] [place] [address] Performed By: #### 5 7021-8 ####[facility] LABCLIA [id number] [place] [address] Monocytes (Bld) [#/Vol] 0.71 10*3/uL Normal <0.87 [facility] Comment on above: Order Comment: Speci men Type: BLOOD SPECIMENOrdering Facility: [facility] Address: [address] [place] [address] Performed By: #### 5 7021-8 ####[facility] LABCLIA [id number] [place] [address] Monocytes/100 WBC (Bld) 12.7 % Normal [facility] Comment on above: Order Comment: Speci men Type: BLOOD SPECIMENOrdering Facility: [facility] Address: [address] [place] [address] Performed By: #### 5 7021-8 ####[facility] LABCLIA [id number] [place] [address] Neutrophils (Bld) [#/Vol] 3.92 10*3/uL Normal 1.45-7.50 [facility] Comment on above: Order Comment: Speci men Type: BLOOD SPECIMENOrdering Facility: [facility] Address: [address] [place] [address] Performed By: #### 5 7021-8 ####[facility] LABCLIA [id number] [place] [address] Neutrophils/100 WBC (Bld) 70.0 % Normal [facility] Comment on above: Order Comment: Speci men Type: BLOOD SPECIMENOrdering Facility: [facility] Address: [address] [place] [address] Performed By: #### 5 7021-8 ####[facility] LABCLIA [id number] [place] [address] Nucleated RBC (Bld) [#/Vol] 10*3/uL Normal <0.01 [facility] Comment on above: Order Comment: Speci men Type: BLOOD SPECIMENOrdering Facility: [facility] Address: [address] [place] [address] Performed By: #### 5 7021-8 ####[facility] LABCLIA [id number] [place] [address] Nucleated RBC/100 WBC (Bld) [Ratio] 0.0 /100 WBC Normal [facility] Comment on above: Order Comment: Speci men Type: BLOOD SPECIMENOrdering Facility: [facility] Address: [address] [place] [address] Performed By: #### 5 7021-8 ####[facility] LABCLIA [id number] [place] [address] Platelet mean volume (Bld) [Entitic vol] 10.2 fL Normal 9.0-12.7 [facility] Comment on above: Order Comment: Speci men Type: BLOOD SPECIMENOrdering Facility: [facility] Address: [address] [place] [address] Performed By: #### 5 7021-8 ####[facility] LABCLIA [id number] [place] [address] Platelets (Bld) [#/Vol] 160 10*3/uL Normal 150-400 [facility] Comment on above: Order Comment: Speci men Type: BLOOD SPECIMENOrdering Facility: [facility] Address: [address] [place], [place] [address] Performed By: #### 5 7021-8 ####[facility] LABCLIA [id number] [place] [address] RBC (Bld) [#/Vol] 3.06 10*6/uL Low 4.20-6.00 [facility] Comment on above: Order Comment: Speci men Type: BLOOD SPECIMENOrdering Facility: [facility] Address: [address] [place] [address] Performed By: #### 5 7021-8 ####[facility] LABCLIA [id number] [place] [address] WBC (Bld) [#/Vol] 5.60 10*3/uL Normal 3.70-11.00 [facility] Comment on above: Order Comment: Speci men Type: BLOOD SPECIMENOrdering Facility: [facility] Address: [address] [place] [address] Performed By: #### 5 7021-8 ####[facility] LABCLIA [id number] [place] [address] Comprehensive metabolic 2000 panelon 10-22-2021 Albumin [Mass/Vol] 3.4 g/dL Low 3.9-4.9 [facility] Comment on above: Order Comment: Speci men Type: BLOOD SPECIMENOrdering Facility: [facility] Address: [address] [place] [address] Performed By: #### 2 4323-8 ####[facility] LABCLIA [id number] [place] [address] ALP [Catalytic activity/Vol] 197 U/L High 38-113 [facility] Comment on above: Order Comment: Speci men Type: BLOOD SPECIMENOrdering Facility: [facility] Address: [address] [place] [address] Performed By: #### 2 4323-8 ####[facility] LABCLIA [id number] [place] [address] ALT [Catalytic activity/Vol] 19 U/L Normal 10-54 [facility] Comment on above: Order Comment: Speci men Type: BLOOD SPECIMENOrdering Facility: [facility] Address: [address] [place] [address] Performed By: #### 2 4323-8 ####[facility] LABCLIA [id number] [place] [address] Anion gap [Moles/Vol] 9 mmol/L Normal 9-18 [facility] Comment on above: Order Comment: Speci men Type: BLOOD SPECIMENOrdering Facility: [facility] Address: [address] [place] [address] Performed By: #### 2 4323-8 ####[facility] LABCLIA [id number] [place] [address] AST [Catalytic activity/Vol] 21 U/L Normal 14-40 [facility] Comment on above: Order Comment: Speci men Type: BLOOD SPECIMENOrdering Facility: [facility] Address: [address] [place] [address] Performed By: #### 2 4323-8 ####[facility] LABCLIA [id number] [place] [address] Bilirubin [Mass/Vol] 0.3 mg/dL Normal 0.2-1.3 [facility] Comment on above: Order Comment: Speci men Type: BLOOD SPECIMENOrdering Facility: [facility] Address: [address] [place] [address] Performed By: #### 2 4323-8 ####[facility] LABCLIA [id number] [place] [address] Calcium [Mass/Vol] 8.7 mg/dL Normal 8.5-10.2 [facility] Comment on above: Order Comment: Speci men Type: BLOOD SPECIMENOrdering Facility: [facility] Address: [address] [place] [address] Performed By: #### 2 4323-8 ####[facility] LABCLIA [id number] [place] [address] Chloride [Moles/Vol] 110 mmol/L High 97-105 [facility] Comment on above: Order Comment: Speci men Type: BLOOD SPECIMENOrdering Facility: [facility] Address: [address] [place] [address] Performed By: #### 2 4323-8 ####[facility] LABCLIA [id number] [place] [address] CO2 [Moles/Vol] 21 mmol/L Low 22-30 [facility] Comment on above: Order Comment: Speci men Type: BLOOD SPECIMENOrdering Facility: [facility] Address: [address] [place] [address] Performed By: #### 2 4323-8 ####[facility] LABCLIA [id number] [place] [address] Creatinine [Mass/Vol] 4.04 mg/dL High 0.73-1.22 [facility] Comment on above: Order Comment: Speci men Type: BLOOD SPECIMENOrdering Facility: [facility] Address: [address] [place] [address] Performed By: #### 2 4323-8 ####[facility] LABIA [id number] [place] [address] ESTIMATED GLOMERULAR FILTRATION RATE 16 mL/min/1.73m??? Low >=60 [facility] Comment on above: Order Comment: Speci men Type: BLOOD SPECIMENOrdering Facility: [facility] Address: [address] [place] [address] Result Comment: Trixie mated Glomerular Filtration Rate (eGFR) is calculated using the 2020 CKD-EPI creatinine equation. This equation utilizes serum creatinine, sex, and age as parameters. The creatinine assay has traceable calibration to isotope dilution-mass spectrometry. Refer to KDIGO guidelines for clinical interpretation. In patients with unstable renal function, e.g. those with acute kidney injury, the eGFR may not accurately reflect actual GFR. Performed By: #### 2 4323-8 ####[facility] LABIA [id number] [place] [address] Glucose [Mass/Vol] 104 mg/dL High 74-99 [facility] Comment on above: Order Comment: Speci men Type: BLOOD SPECIMENOrdering Facility: [facility] Address: [address] [place] [address] Result Comment: The [place] [employer] (ADA) provides guidance for cutoff values for fasting glucose and random glucose. The ADA defines fasting as no caloric intake for at least 8 hours. Fasting plasma glucose results between 100 to 125 mg/dL indicate increased risk for diabetes (prediabetes). Fasting plasma glucose results greater than or equal to 126 mg/dL meet the criteria for diagnosis of diabetes. In the absence of unequivocal hyperglycemia, results should be confirmed by repeat testing. In a patient with classic symptoms of hyperglycemia or hyperglycemic crisis, random plasma glucose results greater than or equal to 200 mg/dL meet the criteria for diagnosis of diabetes. Reference: Standards of Medical Care in Diabetes 2016, [place] [employer]. Diabetes Care. 2016.39(Suppl 1). Performed By: #### 2 4323-8 ####[facility] LABCLIA [id number] [place] [address] Potassium [Moles/Vol] 4.5 mmol/L Normal 3.7-5.1 [facility] Comment on above: Order Comment: Speci men Type: BLOOD SPECIMENOrdering Facility: [facility] Address: [address] [place] [address] Performed By: #### 2 4323-8 ####[facility] LABCLIA [id number] [place] [address] Protein [Mass/Vol] 6.8 g/dL Normal 6.3-8.0 [facility] Comment on above: Order Comment: Speci men Type: BLOOD SPECIMENOrdering Facility: [facility] Address: [address] [place] [address] Performed By: #### 2 4323-8 ####[facility] LABCLIA [id number] [place] [address] Sodium [Moles/Vol] 140 mmol/L Normal 136-144 [facility] Comment on above: Order Comment: Speci men Type: BLOOD SPECIMENOrdering Facility: [facility] Address: [address] [address] Performed By: #### 2 4323-8 ####[facility] LABCLIA [id number] [place] [address] Urea nitrogen [Mass/Vol] 58 mg/dL High 9-24 [facility] Comment on above: Order Comment: Speci men Type: BLOOD SPECIMENOrdering Facility: [facility] Address: [address] [place] [address] Performed By: #### 2 4323-8 ####[facility] LABCLIA [id number] [place] [address] B2 MICROGLOBULIN Bon 022 Wcgq-7-Ozvnwwhvjsxfe [Mass/Vol] 16.8 ug/mL High 0.8 - 2.4 mg/L [facility] Calcium.ionized [Moles/Vol]o n 10-03-2021 Calcium.ionized (Bld) [Mass/Vol] 1.20 mmol/L 1.08 - 1.30 mmol/L [facility] Calcium.ionized adjusted to pH 7.4 (Bld) [Moles/Vol] 1.19 mmol/L 1.08 - 1.30 mmol/L [facility] ERYTHROPOIETIN/EPOon 022 Erythropoietin (EPO) Qn 8.2 mIU/mL 2.6 - 18.5 mIU/mL [facility] FERRITIN BLDon 10-03-2021 Ferritin [Mass/Vol] 355.0 ng/mL 30.3 - 5 65.7 ng/mL [facility] FOLATE SERUMon 10-03-2021 Folate [Mass/Vol] 10.6 ng/mL >4.7 ng/mL [facility] VITAMIN B12 BLOODon 10-04-19 22 Cobalamin (Vitamin B12) [Mass/Vol] 647 pg/mL 232-1,245 pg/mL [facility] B2 Microglob SerPl-mCncon Swpg-4-Rljskvfcuefwj [Mass/Vol] 16.8 ug/mL High 0.8-2.4 [facility] Comment on above: Order Comment: Speci men Type: BLOOD SPECIMEN [facility] Address: [address] [place] [address] Performed By: #### 5 7021-8 #### [facility] CLIA [id number] [address] [place] [address] CBC W Auto Differential pane l (Bld)on 10-02-2021 Basophils (Bld) [#/Vol] 10*3/uL Normal <0.11 [facility] Comment on above: Order Comment: Speci men Type: BLOOD SPECIMENOrdering Facility: [facility] Address: [address] [place] [address] Performed By: #### 5 7021-8 ####[facility] LABCLIA [id number] [place] [address] Basophils/100 WBC (Bld) 0.3 % Normal [facility] Comment on above: Order Comment: Speci men Type: BLOOD SPECIMENOrdering Facility: [facility] Address: [address] [place] [address] Performed By: #### 5 7021-8 ####[facility] LABCLIA [id number] [place] [address] Differential cell count method Nom (Bld) Auto Normal [facility] Comment on above: Order Comment: Speci men Type: BLOOD SPECIMENOrdering Facility: [facility] Address: [address] [place] [address] Performed By: #### 5 7021-8 ####[facility] LABCLIA [id number] [place] [address] Eosinophils (Bld) [#/Vol] 0.23 10*3/uL Normal <0.46 [facility] Comment on above: Order Comment: Speci men Type: BLOOD SPECIMENOrdering Facility: [facility] Address: [address] [place] [address] Performed By: #### 5 7021-8 ####[facility] LABCLIA [id number] [place] [address] Eosinophils/100 WBC (Bld) 3.7 % Normal [facility] Comment on above: Order Comment: Speci men Type: BLOOD SPECIMENOrdering Facility: [facility] Address: [address] [place] [address] Performed By: #### 5 7021-8 ####[facility] LABIA [id number] [place] [address] Erythrocyte distribution width (RBC) [Ratio] 14.7 % Normal 11.5-15.0 [facility] Comment on above: Order Comment: Speci men Type: BLOOD SPECIMENOrdering Facility: [facility] Address: [address] [place] [address] Performed By: #### 5 7021-8 ####[facility] LABIA [id number] [place] [address] Hematocrit (Bld) [Volume fraction] 27.1 % Low 39.0-51.0 [facility] Comment on above: Order Comment: Speci men Type: BLOOD SPECIMENOrdering Facility: [facility] Address: [address] [place] [address] Performed By: #### 5 7021-8 ####[facility] LABIA [id number] [place] [address] Hemoglobin (Bld) [Mass/Vol] 8.8 g/dL Low 13.0-17.0 [facility] Comment on above: Order Comment: Speci men Type: BLOOD SPECIMENOrdering Facility: [facility] Address: [address] [place] [address] Performed By: #### 5 7021-8 ####[facility] LABIA [id number] [place] [address] IMMATURE GRAN % 0.2 % Normal [facility] Comment on above: Order Comment: Speci men Type: BLOOD SPECIMENOrdering Facility: [facility] Address: [address] [place] [address] Performed By: #### 5 7021-8 ####[facility] LABIA [id number] [place] [address] IMMATURE GRAN ABS <0.03 Normal <0.10 [facility] Comment on above: Order Comment: Speci men Type: BLOOD SPECIMENOrdering Facility: [facility] Address: [address] [place] [address] Performed By: #### 5 7021-8 ####[facility] LABCLIA [id number] [place] [address] Lymphocytes (Bld) [#/Vol] 0.73 10*3/uL Low 1.00-4.00 [facility] Comment on above: Order Comment: Speci men Type: BLOOD SPECIMENOrdering Facility: [facility] Address: [address] [place] [address] Performed By: #### 5 7021-8 ####[facility] LABCLIA [id number] [place] [address] Lymphocytes/100 WBC (Bld) 11.8 % Normal [facility] Comment on above: Order Comment: Speci men Type: BLOOD SPECIMENOrdering Facility: [facility] Address: [address] [place] [address] Performed By: #### 5 7021-8 ####[facility] LABCLIA [id number] [place] [address] MCH (RBC) [Entitic mass] 27.2 pg Normal 26.0-34.0 [facility] Comment on above: Order Comment: Speci men Type: BLOOD SPECIMENOrdering Facility: [facility] Address: [address] [place] [address] Performed By: #### 5 7021-8 ####[facility] LABCLIA [id number] [place] [address] MCHC (RBC) [Mass/Vol] 32.5 g/dL Normal 30.5-36.0 [facility] Comment on above: Order Comment: Speci men Type: BLOOD SPECIMENOrdering Facility: [facility] Address: [address] [place] [address] Performed By: #### 5 7021-8 ####[facility] LABCLIA [id number] [place] [address] MCV (RBC) [Entitic vol] 83.6 fL Normal 80.0-100.0 [facility] Comment on above: Order Comment: Speci men Type: BLOOD SPECIMENOrdering Facility: [facility] Address: [address] [place] [address] Performed By: #### 5 7021-8 ####[facility] LABCLIA [id number] [place] [address] Monocytes (Bld) [#/Vol] 0.67 10*3/uL Normal <0.87 [facility] Comment on above: Order Comment: Speci men Type: BLOOD SPECIMENOrdering Facility: [facility] Address: [address] [place] [address] Performed By: #### 5 7021-8 ####[facility] LABCLIA [id number] [place] [address] Monocytes/100 WBC (Bld) 10.8 % Normal [facility] Comment on above: Order Comment: Speci men Type: BLOOD SPECIMENOrdering Facility: [facility] Address: [address] [place] [address] Performed By: #### 5 7021-8 ####[facility] LABCLIA [id number] [place] [address] Neutrophils (Bld) [#/Vol] 4.54 10*3/uL Normal 1.45-7.50 [facility] Comment on above: Order Comment: Speci men Type: BLOOD SPECIMENOrdering Facility: [facility] Address: [address] [place] [address] Performed By: #### 5 7021-8 ####[facility] LABCLIA [id number] [place] [address] Neutrophils/100 WBC (Bld) 73.2 % Normal [facility] Comment on above: Order Comment: Speci men Type: BLOOD SPECIMENOrdering Facility: [facility] Address: [address] [place], [place] [address] Performed By: #### 5 7021-8 ####[facility] LABCLIA [id number] [place] [address] Nucleated RBC (Bld) [#/Vol] 10*3/uL Normal <0.01 [facility] Comment on above: Order Comment: Speci men Type: BLOOD SPECIMENOrdering Facility: [facility] Address: [address] [place], [place] [address] Performed By: #### 5 7021-8 ####[facility] LABCLIA [id number] [place] [address] Nucleated RBC/100 WBC (Bld) [Ratio] 0.0 /100 WBC Normal [facility] Comment on above: Order Comment: Speci men Type: BLOOD SPECIMENOrdering Facility: [facility] Address: [address] [place], [place] [address] Performed By: #### 5 7021-8 ####[facility] LABIA [id number] [place] [address] Platelet mean volume (Bld) [Entitic vol] 10.2 fL Normal 9.0-12.7 [facility] Comment on above: Order Comment: Speci men Type: BLOOD SPECIMENOrdering Facility: [facility] Address: [address] [place], [place] [address] Performed By: #### 5 7021-8 ####[facility] LABCLIA [id number] [place] [address] Platelets (Bld) [#/Vol] 163 10*3/uL Normal 150-400 [facility] Comment on above: Order Comment: Speci men Type: BLOOD SPECIMENOrdering Facility: [facility] Address: [address] [place], [place] [address] Performed By: #### 5 7021-8 ####[facility] LABCLIA [id number] [place] [address] RBC (Bld) [#/Vol] 3.24 10*6/uL Low 4.20-6.00 [facility] Comment on above: Order Comment: Speci men Type: BLOOD SPECIMENOrdering Facility: [facility] Address: [address] [place] [address] Performed By: #### 5 7021-8 ####[facility] LABCLIA [id number] [place] [address] WBC (Bld) [#/Vol] 6.20 10*3/uL Normal 3.70-11.00 [facility] Comment on above: Order Comment: Speci men Type: BLOOD SPECIMENOrdering Facility: [facility] Address: [address] [place] [address] Performed By: #### 5 7021-8 ####[facility] LABCLIA [id number] [place] [address] Abs Immature Gran <0.03 <0.10 k/uL [facility] Basophils (Bld) [#/Vol] 10*3/uL <0.11 k/uL [facility] Basophils/100 WBC (Bld) 0.3 % [facility] Differential cell count method Nom (Bld) Auto [facility] Eosinophils (Bld) [#/Vol] 0.23 10*3/uL <0.46 k/uL [facility] Eosinophils/100 WBC (Bld) 3.7 % [facility] Erythrocyte distribution width (RBC) [Ratio] 14.7 % 11.5 - 15.0 % [facility] Hematocrit (Bld) [Volume fraction] 27.1 % Low 39.0 - 51.0 % [facility] Hemoglobin (Bld) [Mass/Vol] 8.8 g/dL Low 13.0 - 17.0 g/dL [facility] Immature Gran % 0.2 % [facility] Lymphocytes (Bld) [#/Vol] 0.73 10*3/uL Low 1.00 - 4.00 k/uL [facility] Lymphocytes/100 WBC (Bld) 11.8 % [facility] MCH (RBC) [Entitic mass] 27.2 pg 26.0 - 34.0 pg [facility] MCHC (RBC) [Mass/Vol] 32.5 g/dL 30.5 - 36.0 g/dL [facility] MCV (RBC) [Entitic vol] 83.6 fL 80.0 - 100.0 fL [facility] Monocytes (Bld) [#/Vol] 0.67 10*3/uL <0.87 k/uL [facility] Monocytes/100 WBC (Bld) 10.8 % [facility] Neutrophils (Bld) [#/Vol] 4.54 10*3/uL 1.45 - 7.50 k/uL [facility] Neutrophils/100 WBC (Bld) 73.2 % [facility] Nucleated RBC (Bld) [#/Vol] 10*3/uL <0.01 k/uL [facility] Nucleated RBC/100 WBC (Bld) [Ratio] 0.0 /100 WBC [facility] Platelet mean volume (Bld) [Entitic vol] 10.2 fL 9.0 - 12.7 fL [facility] Platelets (Bld) [#/Vol] 163 10*3/uL 150 - 400 k/uL [facility] RBC (Bld) [#/Vol] 3.24 10*6/uL Low 4.20 - 6.0 0 m/uL [facility] WBC (Bld) [#/Vol] 6.20 10*3/uL 3.70 - 11. 00 k/uL [facility] CNOVSPon 10-02-2021 CNOVSP Visit (SP) Office ([place]) GOPAL YATES JR ([id number]) 1965 M Date Time Provider Department 10/02/21 4:00 PM CONRAD ROJAS During your visit today, we recorded the following information about you: Temperature Pulse Respiration Blood pressure 97.5 degrees 61/minute 18/minute 138/58 Weight Height 91.6 kg 1.93 m Conrad Rojas MD 10/08/2021 9:04 PM Signed NAME: Gopal Yates CLINIC NO.: [id number] DATE OF SERVICE: October 02, 2021 Referring Provider: Douglas Juárez Consultation requested by Dr. Juárez for an opinion regarding Mr. Gopal Yates JR, and my final recommendations will be communicated back to the requesting physician by way of shared medical record or letter via US mail. Additional Clinicians involved in Gopal Yates JR's care: DIAGNOSIS: Elevated Matt:Lambda light chains ASSESSMENT: 56 year old gentleman with longstanding and poorly controlled T2DM and HTN with renal failure and possible MGUS. Suspect anemia is due to Stage 3b CKD. PLAN: 1. Draw Epo and iron / folate/ B12 as well as Myeloma labs - call results. CURRENT TREATMENT: 1. - HPI: CASE HISTORY: - Initial Visit, October 02, 2021: Gopal Yates JR presents today Hematology and Oncology evaluation. He is a 56 year old male who has a chronic history of T2DM and HTN. He has neuropathy and Renal failure as well as anemia that is most likely associated. Cold and fatigued and Weak. 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 - REVIEW OF SYSTEMS Per HPI and otherwise negative by full review of organ systems. - ECOG PERFORMANCE STATUS: 0 PHYSICAL EXAMINATION: Vitals: BP 138/58 Pulse 61 Temp (Src) 97.5 (Temporal) Resp 18 Ht 6' 4 (1.93m) Wt 202 lb (91.6kg) SpO2 97% BMI 24.60 kg/(m2). Body surface area is 2.22 meters squared. Exam limited to gross visualization where appropriate due to COVID-19. Gen.: This is an age-appropriate patient in no acute distress. Head: Appears atraumatic with no visible lesions. Eyes: Pupils equally round and reactive to light, extraocular muscles are intact. Neck: Supple. Mouth: Masked. Respiratory: Appears to be respiring comfortably. Neurologic: Nonfocal to gross visualization. Alert and oriented ?3. Psychiatric: No evidence of inappropriate anxiety or depression. Skin: Visible areas of skin without rash, lesions, wounds or petechiae. - ALLERGIES: ALLERGIES Allergen Reactions - Sulfa (Sulfonamide * Unknown MEDICATIONS: aspirin 81 mg cap Take by mouth. bumetanide (BUMEX) 2 mg tablet Take 2 mg by mouth once daily. carvedilol (COREG) 25 mg tablet Take 25 mg by mouth twice daily with meals. 1/2 tabstwice daily ferrous sulfate 325 mg (65 mg iron) tablet Take 325 mg by mouth daily with breakfast. hydrALAZINE (APRESOLINE) 50 mg tablet Take 50 mg by mouth three times daily. insulin detemir (LEVEMIR FLEXPEN SUBCUTANEOUS) Inject subcutaneously. levothyroxine 100 mcg cap Take 100 mcg by mouth daily before breakfast. Multivitamin capsule Take 1 capsule by mouth once daily. NIFEdipine XL (ADALAT CC) 30 mg 24 hr tablet Take 30 mg by mouth once daily. potassium chloride (K-TAB) 10 mEq tablet Take 10 mEq by mouth twice daily. Omeprazole Magnesium (PRILOSEC OTC) 20 mg tablet Take 20 mg by mouth once daily. sodium bicarbonate 650 mg tablet Take 650 mg by mouth twice daily. ezetimibe (ZETIA) 10 mg tablet Take 10 mg by mouth once daily. - LABORATORY VALUES: WBC (k/uL) Date Value 10/02/2021 6.20 RBC (m/uL) Date Value 10/02/2021 3.24 (L) Hemoglobin (g/dL) Date Value 10/02/2021 8.8 (L) Hematocrit (%) Date Value 10/02/2021 27.1 (L) MCV (fL) Date Value 10/02/2021 83.6 MCH (pg) Date Value 10/02/2021 27.2 MCHC (g/dL) Date Value 10/02/2021 32.5 RDW-CV (%) Date Value 10/02/2021 14.7 Platelet Count (k/uL) Date Value 10/02/2021 163 MPV (fL) Date Value 10/02/2021 10.2 Glucose (mg/dL) Date Value 10/02/2021 125 (H) BUN (mg/dL) Date Value 10/02/2021 64 (H) Creatinine (mg/dL) Date Value 10/02/2021 3.91 (H) Sodium (mmol/L) Date Value 10/02/2021 143 Potassium (mmol/L) Date Value 10/02/2021 4.0 Chloride (mmol/L) Date Value 10/02/2021 112 (H) CO2 (mmol/L) Date Value 10/02/2021 18 (L) Protein, Total (g/dL) Date Value 10/02/2021 7.1 10/02/2021 7.0 Albumin (g/dL) Date Value 10/02/2021 3.6 (L) Calcium, Total (mg/dL) Date Value 10/02/2021 8.9 Alkaline P (more content not included)... Normal [facility] Calcium.ionized [Moles/Vol]o n 10-02-2021 Calcium.ionized (Bld) [Mass/Vol] 1.20 mmol/L Normal 1.08-1.30 [facility] Comment on above: Order Comment: Speci men Type: BLOOD SPECIMENOrdering Facility: [facility] Address: [address] [place], [place] [address] Performed By: #### 1 995-0 ####[facility] LABCLIA [id number] [address] [place] Calcium.ionized adjusted to pH 7.4 (Bld) [Moles/Vol] 1.19 mmol/L Normal 1.08-1.30 [facility] Comment on above: Order Comment: Speci men Type: BLOOD SPECIMENOrdering Facility: [facility] Address: [address] [place], [place] [address] Performed By: #### 1 995-0 ####[facility] LABIA [id number] [place] [address] [place] Comprehensive metabolic 2000 panelon 10-02-2021 Albumin [Mass/Vol] 3.6 g/dL Low 3.9-4.9 [facility] Comment on above: Order Comment: Speci men Type: BLOOD SPECIMEN [facility] Address: [address] Performed By: #### 5 7021-8 #### [facility] CLIA [id number] [address] [place] [address] ALP [Catalytic activity/Vol] 237 U/L High 38-113 [facility] Comment on above: Order Comment: Speci men Type: BLOOD SPECIMEN [facility] Address: [address] [place] [address] Performed By: #### 5 7021-8 #### [facility] CLIA [id number] [address] [place] [address] ALT [Catalytic activity/Vol] 23 U/L Normal 10-54 [facility] Comment on above: Order Comment: Speci men Type: BLOOD SPECIMEN [facility] Address: [address] [place] [address] Performed By: #### 5 7021-8 #### [facility] CLIA [id number] [address] [place] [address] Anion gap [Moles/Vol] 13 mmol/L Normal 9-18 [facility] Comment on above: Order Comment: Speci men Type: BLOOD SPECIMEN [facility] Address: [address] [place] [address] Performed By: #### 5 7021-8 #### [facility] CLIA [id number] [address] [place] [address] AST [Catalytic activity/Vol] 23 U/L Normal 14-40 [facility] Comment on above: Order Comment: Speci men Type: BLOOD SPECIMEN [facility] Address: [address] [place] [address] Performed By: #### 5 7021-8 #### [facility] CLIA [id number] [address] [place] [address] Bilirubin [Mass/Vol] 0.4 mg/dL Normal 0.2-1.3 [facility] Comment on above: Order Comment: Speci men Type: BLOOD SPECIMEN [facility] Address: [address] [place] [address] Performed By: #### 5 7021-8 #### [facility] CLIA [id number] [address] [place] [address] Calcium [Mass/Vol] 8.9 mg/dL Normal 8.5-10.2 [facility] Comment on above: Order Comment: Speci men Type: BLOOD SPECIMEN [facility] Address: [address] [place] [address] Performed By: #### 5 7021-8 #### [facility] CLIA [id number] [address] [place] [address] Chloride [Moles/Vol] 112 mmol/L High 97-105 [facility] Comment on above: Order Comment: Speci men Type: BLOOD SPECIMEN [facility] Address: [address] [place] [address] Performed By: #### 5 7021-8 #### [facility] CLIA [id number] [address] [place] [address] CO2 [Moles/Vol] 18 mmol/L Low 22-30 [facility] Comment on above: Order Comment: Speci men Type: BLOOD SPECIMEN [facility] Address: [address] [place] [address] Performed By: #### 5 7021-8 #### [facility] CLIA [id number] [address] [place] [address] Creatinine [Mass/Vol] 3.91 mg/dL High 0.73-1.22 [facility] Comment on above: Order Comment: Speci men Type: BLOOD SPECIMEN [facility] Address: [address] [place] [address] Performed By: #### 5 7021-8 #### [facility] CLIA [id number] [address] [place] [address] ESTIMATED GLOMERULAR FILTRATION RATE 17 mL/min/1.73m??? Low >=60 [facility] Comment on above: Order Comment: Speci men Type: BLOOD SPECIMEN [facility] Address: [address] [place] [address] Result Comment: Trixie mated Glomerular Filtration Rate (eGFR) is calculated using the 2020 CKD-EPI creatinine equation. This equation utilizes serum creatinine, sex, and age as parameters. The creatinine assay has traceable calibration to isotope dilution-mass spectrometry. Refer to KDIGO guidelines for clinical interpretation. In patients with unstable renal function, e.g. those with acute kidney injury, the eGFR may not accurately reflect actual GFR. Performed By: #### 5 7021-8 #### [facility] CLIA [id number] [address] [place] [address] Glucose [Mass/Vol] 125 mg/dL High 74-99 [facility] Comment on above: Order Comment: Fabi mcdonnell Type: BLOOD SPECIMEN [facility] Address: [address] [place] [phone] Result Comment: The [place] [employer] (ADA) provides guidance for cutoff values for fasting glucose and random glucose. The ADA defines fasting as no caloric intake for at least 8 hours. Fasting plasma glucose results between 100 to 125 mg/dL indicate increased risk for diabetes (prediabetes). Fasting plasma glucose results greater than or equal to 126 mg/dL meet the criteria for diagnosis of diabetes. In the absence of unequivocal hyperglycemia, results should be confirmed by repeat testing. In a patient with classic symptoms of hyperglycemia or hyperglycemic crisis, random plasma glucose results greater than or equal to 200 mg/dL meet the criteria for diagnosis of diabetes. Reference: Standards of Medical Care in Diabetes 2016, [place] [employer]. Diabetes Care. 2016.39(Suppl 1). Performed By: #### 5 7021-8 #### [facility] CLIA [id number] [address] [place] [address] Potassium [Moles/Vol] 4.0 mmol/L Normal 3.7-5.1 [facility] Comment on above: Order Comment: Fabi mcdonnell Type: BLOOD SPECIMEN [facility] Address: [address] [place] [address] Performed By: #### 5 7021-8 #### [facility] CLIA [id number] [address] [place] [address] Protein [Mass/Vol] 7.1 g/dL Normal 6.3-8.0 [facility] Comment on above: Order Comment: Fabi mcdonnell Type: BLOOD SPECIMEN [facility] Address: [address] [place] [address] Performed By: #### 5 7021-8 #### [facility] CLIA [id number] [address] [place] [address] Sodium [Moles/Vol] 143 mmol/L Normal 136-144 [facility] Comment on above: Order Comment: Speci men Type: BLOOD SPECIMEN [facility] Address: [facility] [place] [address] Performed By: #### 5 7021-8 #### [facility] [facility] CLIA [id number] [address] [place] [address] Urea nitrogen [Mass/Vol] 64 mg/dL High 9-24 [facility] Comment on above: Order Comment: Speci men Type: BLOOD SPECIMEN [facility]ing Facility[facility] Address: [facility] [address] [place] [address] Performed By: #### 5 7021-8 #### [facility] CLIA [id number] [address] [place] [address] Albumin [Mass/Vol] 3.6 g/dL Low 3.9 - 4.9 g/dL [facility] ALP [Catalytic activity/Vol] 237 U/L High 38 - 113 U/L [facility] ALT [Catalytic activity/Vol] 23 U/L 10 - 54 U/L [facility] Anion gap [Moles/Vol] 13 mmol/L 9 - 18 mmol/L [facility] AST [Catalytic activity/Vol] 23 U/L 14 - 40 U/L [facility] Bilirubin [Mass/Vol] 0.4 mg/dL 0.2 - 1 .3 mg/dL [facility] Calcium [Mass/Vol] 8.9 mg/dL 8.5 - 10. 2 mg/dL [facility] Chloride [Moles/Vol] 112 mmol/L High 97 - 10 5 mmol/L [facility] CO2 [Moles/Vol] 18 mmol/L Low 22 - 30 mmol/L [facility] Creatinine [Mass/Vol] 3.91 mg/dL High 0.73 - 1.22 mg/dL [facility] Estimated Glomerular Filtration Rate 17 mL/min/1.73m Low >=60 mL/min/1.73m [facility] Glucose [Mass/Vol] 125 mg/dL High 74 - 99 mg/dL [facility] Potassium [Moles/Vol] 4.0 mmol/L 3.7 - 5.1 mmol/L [facility] Protein [Mass/Vol] 7.1 g/dL 6.3 - 8.0 g/dL [facility] Sodium [Moles/Vol] 143 mmol/L 136 - 144 mmol/L [facility] Urea nitrogen [Mass/Vol] 64 mg/dL High 9 - 24 mg/dL [facility] EPO SerPl-aCncon 10-02-2021 Erythropoietin (EPO) Qn 8.2 mIU/mL Normal 2.6-18.5 [facility] Comment on above: Order Comment: Speci men Type: BLOOD SPECIMENOrdering Facility: [facility] Address: [address] [place] [address] Performed By: #### 1 5061-5 ####[facility] [id number] [address] STATES OF [facility] FREE LIGHT CHAINS PLUS RATIO on 10-02-2021 Free [place] Lt Chains,S 125.4 mg/L Critically high 3.3-19.4 [facility] Comment on above: Performed By: #### H BSANS #### [facility] [address] [address] [address] Shilo Lam Free Lambda Lt Chains,S 85.1 mg/L Critically high 5.7-26. 3 [facility] Comment on above: Performed By: #### H BSANS #### [facility] [address] [address] [address] Shilo Lam [place]/Lambda Ratio, S 1.47 Normal 0.26-1.65 [facility] Comment on above: Performed By: #### H BSANS #### [facility] [address] [address] [address] Shilo Lam Ferritin SerPl-mCncon 2021 Ferritin [Mass/Vol] 355.0 ng/mL Normal 30.3-565.7 [facility] Comment on above: Order Comment: Speci men Type: BLOOD SPECIMEN [facility] Address: [address] [place] [address] Performed By: #### 5 7021-8 #### [facility] CLIA [id number] [address] [place] [address] Folate SerPl-mCncon 10-03-19 Folate [Mass/Vol] 10.6 ng/mL Normal >4.7 [facility] Comment on above: Order Comment: Speci men Type: BLOOD SPECIMENOrdering Facility: [facility] Address: [address] [place] [address] Performed By: #### 2 132-9, 2284-8, 2885-2 ####[facility] LABCL[facility] [id number] [address] OF [facility] IMMUNOFIXATION SCREEN, SERUM on 10-02-2021 MPA RESULT No M protein is identified. Normal No M protein is identified. [facility] Comment on above: Order Comment: Speci men Type: BLOOD SPECIMEN [facility] Address: [address] [place] [address] Performed By: #### 5 7021-8 #### [facility] CLIA [id number] [address] [place] [address] STAFF REVIEW (MPA) Reviewed by Darlene Whaley MD [facility] Comment on above: Order Comment: Speci men Type: BLOOD SPECIMEN [facility] Address: [address] [place], [place] [address] Performed By: #### 5 7021-8 #### [facility] CLIA [id number] [address] [place] [address] IMMUNOGLOBULINS GAMon 2021 IgA [Mass/Vol] 479 mg/dL High 70-400 [facility] Comment on above: Order Comment: Speci men Type: BLOOD SPECIMENOrdering Facility: [facility] Address: [address] [place], [place] [address] Performed By: #### S ERIMM ####[facility] [id number] [place] [address] [place] IgG [Mass/Vol] 1405 mg/dL Normal 700-1,600 [facility] Comment on above: Order Comment: Speci men Type: BLOOD SPECIMENOrdering Facility: [facility] Address: [address] [place], [place] [address] Performed By: #### S ERIMM ####[facility] LAB[facility]IA [id number] [place] [address] [place] IgM [Mass/Vol] 136 mg/dL Normal 40-230 [facility] Comment on above: Order Comment: Speci men Type: BLOOD SPECIMENOrdering Facility: [facility] Address: [address] [place], [place] [address] Performed By: #### S ERIMM ####[facility]CLIA [id number] [place] [address] [place] Iron and Iron binding capaci ty panelon 10-02-2021 Iron [Mass/Vol] 41 ug/dL 41 - 186 ug/dL [facility] Iron binding capacity [Mass/Vol] 199 ug/dL Low 232 - 386 ug/dL [facility] Iron/TIBC [Molar ratio] 20.6 % 15.0 - 57.0 % [facility] Iron [Mass/Vol] 41 ug/dL Normal 41-186 [facility] Comment on above: Order Comment: Speci men Type: BLOOD SPECIMEN [facility] Address: [address] [place], [place] [address] Performed By: #### 5 7021-8 #### [facility] CLIA [id number] [address] [place] [address] Iron binding capacity [Mass/Vol] 199 ug/dL Low 232-386 [facility] Comment on above: Order Comment: Speci men Type: BLOOD SPECIMEN [facility] Address: [address] [place], [place] [address] Performed By: #### 5 7021-8 #### [facility] CLIA [id number] [address] [place] [address] Iron/TIBC [Molar ratio] 20.6 % Normal 15.0-57.0 [facility] Comment on above: Order Comment: Speci men Type: BLOOD SPECIMEN [facility] Address: [address] [place] [address] Performed By: #### 5 7021-8 #### [facility] CLIA [id number] [address] [place] [address] KAPPA/GARDNER,FREE,SERon 2021 Immunoglobulin light chains.kappa.free (S) [Mass/Vol] 124.9 mg/L High 3.3-19.4 [facility] Comment on above: Order Comment: Speci men Type: BLOOD SPECIMENOrdering Facility: [facility] Address: [address] [place] [address] Performed By: #### K LFRS ####[facility] LABIA [id number] [place] [address] [place] Immunoglobulin light chains.kappa/Immunoglob ulin light chains.lambda (S) [Mass ratio] 1.52 Normal 0.26-1.65 [facility] Comment on above: Order Comment: Speci men Type: BLOOD SPECIMENOrdering Facility: [facility] Address: [address] [place], [place] [address] Performed By: #### K LFRS ####[facility] [id number] [address] [place] Immunoglobulin light chains.lambda.free [Mass/Vol] 82.3 mg/L High 5.7-26.3 [facility] Comment on above: Order Comment: Speci men Type: BLOOD SPECIMENOrdering Facility: [facility] Address: [address] [place], [place] [address] Performed By: #### K LFRS ####[facility] LABCLIA [id number] [place] [address] [place] LD LACTATE DEHYDROon 022 LDH [Catalytic activity/Vol] 165 U/L 135 - 225 U/L [facility] LDH SerPl-cCncon 10-02-2021 LDH [Catalytic activity/Vol] 165 U/L Normal 135-225 [facility] Comment on above: Order Comment: Speci men Type: BLOOD SPECIMEN [facility] Address: [address] [place] [address] Performed By: #### 5 7021-8 #### [facility] CLIA [id number] [address] [place] [address] PHOSPHORUS INORGANICon 10-02 Phosphate [Mass/Vol] 3.8 mg/dL 2.7 - 4 .8 mg/dL [facility] PROTEIN ELECTROPHORESIS SERU M (P)on 10-02-2021 Albumin [Mass/Vol] 3.22 g/dL Low 3.37-4.23 [facility] Comment on above: Order Comment: Speci men Type: BLOOD SPECIMENOrdering Facility: [facility] Address: [address] [place], [place] [address] Performed By: #### L [id number] ####[facility]CLIA [id number] [place] [address] [place] Alpha 1 globulin Elph [Mass/Vol] 0.33 g/dL High 0.18-0.31 [facility] Comment on above: Order Comment: Speci men Type: BLOOD SPECIMENOrdering Facility: [facility] Address: [address] [place], [place] [address] Performed By: #### L [id number] ####[facility] LABCLIA [id number] [place] [address] [place] Alpha 2 globulin Elph [Mass/Vol] 0.84 g/dL Normal 0.52-0.97 [facility] Comment on above: Order Comment: Speci men Type: BLOOD SPECIMENOrdering Facility: [facility] Address: [address] [place] [address] Performed By: #### L [id number] ####[facility] LABIA [id number] [place] [address] [place] Beta globulin Elph [Mass/Vol] 0.97 g/dL Normal 0.84-1.36 [facility] Comment on above: Order Comment: Speci men Type: BLOOD SPECIMENOrdering Facility: [facility] Address: [address] [place], [place] [address] Performed By: #### L [id number] ####[facility] LABIA [id number] [place] [address] [place] Gamma globulin Elph (Body fld) [Mass fraction] 1.64 g/dL High 0.70-1.44 [facility] Comment on above: Order Comment: Speci men Type: BLOOD SPECIMENOrdering Facility: [facility] Address: [address] [place] [address] Performed By: #### L [id number] ####[facility] LABIA [id number] [address] [place] M-PROTEIN LOCATION Normal [facility] Comment on above: Order Comment: Speci men Type: BLOOD SPECIMENOrdering Facility: [facility] Address: [address] [place] [address] Result Comment: Not Applicable. Performed By: #### L [id number] ####[facility] [id number] [place] [address] [place] Protein Fractions [Interp] No definitive M protein is identified on protein electrophoresis. Normal No definitive M protein is identified on protein electrophores is. [facility] Comment on above: Order Comment: Speci men Type: BLOOD SPECIMENOrdering Facility: [facility] Address: [address] [place], [place] [address] Performed By: #### L [id number] ####[facility]CL[facility] [id number] [place] [address] [place] Protein.monoclonal Elph [Mass/Vol] 0.00 g/dL Normal <=0.00 [facility] Comment on above: Order Comment: Speci men Type: BLOOD SPECIMENOrdering Facility: [facility] Address: [address] [place] [address] Performed By: #### L [id number] ####[facility] LABIA [id number] [address] [place] SPE STAFF REVIEW Reviewed by Darlene Whaley MD [facility] Comment on above: Order Comment: Speci men Type: BLOOD SPECIMENOrdering Facility: [facility] Address: [address] [place] [address] Performed By: #### L [id number] ####[facility]CL[facility] [id number] [place] [address] [place] Phosphate SerPl-mCncon 10-02 Phosphate [Mass/Vol] 3.8 mg/dL Normal 2.7-4.8 [facility] Comment on above: Order Comment: Speci men Type: BLOOD SPECIMENOrdering Facility: [facility] Address: [address] [place] [address] Performed By: #### 3 084-1, 40399-3, 2532-0, 2777-1 ####[facility]CLIA [id number] [place] [id number] Prot SerPl-mCncon 10-02-2021 Protein [Mass/Vol] 7.0 g/dL Normal 6.3-8.0 [facility] Comment on above: Order Comment: Speci men Type: BLOOD SPECIMENOrdering Facility: [facility] Address: [address] [place] [address] Performed By: #### 2 132-9, 2284-8, 2885-2 ####[facility]CLIA [id number] [place] [address] [place] URIC ACID BLOODon 10-02-2021 Urate [Mass/Vol] 6.7 mg/dL 4.0 - 8.1 mg/dL [facility] Urate [facility] 2 Urate [Mass/Vol] 6.7 mg/dL Normal 4.0-8.1 [facility] Comment on above: Order Comment: Speci men Type: BLOOD SPECIMENOrdering Facility: [facility] Address: [address] [place] [address] Performed By: #### 3 084-1, 80207-3, 2532-0, 2777-1 ####[facility] LABCLIA [id number] [place] [id number] Vit B12 [facility] 022 Cobalamin (Vitamin B12) [Mass/Vol] 647 pg/mL Normal 232-1,245 [facility] Comment on above: Order Comment: Speci men Type: BLOOD SPECIMENOrdering Facility: [facility] Address: [address] [place], [place] [address] Performed By: #### 2 132-9, 2284-8, 2885-2 ####[facility] LABCLIA [id number] [place] [address] [place] FREE LIGHT CHAINS PLUS RATIO on 09-24-2021 Free [place] Lt Chains,S 132.3 mg/L Critically high 3.3-19.4 [facility] Comment on above: Performed By: #### Bakari RANKIN #### [facility] [address] [place] [address] [address] Shilo Lam Free Lambda Lt Chains,S 83.4 mg/L Critically high 5.7-26. 3 [facility] Comment on above: Performed By: #### Bakari RANKIN #### [facility] [address] [place] [address] Dr. Shilo Lam [place]/Lambda Ratio, S 1.59 Normal 0.26-1.65 [facility] Comment on above: Performed By: #### F REELIT #### [facility] [address] [place] [address] Dr. Shilo Lam IMMUNOFIXATION (DARYL), URINEo n 09-24-2021 DARYL Interpretation:U Comment Normal [facility] Comment on above: Result Comment: No m onoclonality detected. Performed By: #### I MUNFXU #### [facility] [address] [place] [address] Dr. Shilo Lam PTH INTACTon 09-20-2021 PTH, Intact 73 pg/mL Critically high 15-65 [facility] Comment on above: Performed By: #### F REECLARISSAT #### [facility] [address] [place] [address] Dr. Shilo Lam FERRITINon 09-19-2021 Ferritin [Mass/Vol] 324.0 ng/mL Normal 26.0-388.0 [facility] Comment on above: Performed By: #### H H #### [facility] [address] [place] [address] Dr. Shilo Lam HEMOGRAM AND PLATELon 2021 Hematocrit (Bld) [Volume fraction] 26.6 % Critically low 42.0-54.0 [facility] Comment on above: Performed By: #### H BSANS #### [facility] [address] [place] [address] Dr. Shilo Lam Hemoglobin (Bld) [Mass/Vol] 8.8 g/dL Critically low 14.0-18.0 [facility] Comment on above: Performed By: #### H BSANS #### [facility] [address] [place] [address] Dr. Shilo Lam MCH (RBC) [Entitic mass] 27.7 pg Normal 25.9-34.0 [facility] Comment on above: Performed By: #### H BSANS #### [facility] [address] [place] [address] Dr. Shilo Lam MCHC (RBC) [Mass/Vol] 33.1 g/dL Normal 29.9-35.2 [facility] Comment on above: Performed By: #### H BSANS #### [facility] [address] [place] [address] Dr. Shilo Lam MCV (RBC) [Entitic vol] 83.6 fL Normal 80.0-94.0 [facility] Comment on above: Performed By: #### H BSANS #### [facility] [address] [place] [address] Dr. Shilo Lam PLT 155 103/ul Normal 150-450 [facility] Comment on above: Performed By: #### H BSANS #### [facility] [address] [place] [address] Dr. Shilo Lam RBC 3.18 106/ul Critically low 4.70-6.10 [facility] Comment on above: Performed By: #### H BSANS #### [facility] [address] [place] [address] Dr. Shilo Lam WBC 6.1 103/ul Normal 4.0-11.0 [facility] Comment on above: Performed By: #### H BSANS #### [facility] [address] [place] [address] Dr. Shilo Lam IRON AND TIBCon 09-19-2021 % SATURATION 20.0 % Normal [facility] Comment on above: Performed By: #### H H #### [facility] [address] [place] [address] Dr. Shilo Lam Iron [Mass/Vol] 44.0 ug/dL Critically low 65.0-175.0 [facility] Comment on above: Performed By: #### H H #### [facility] [address] [place] [address] Dr. Shilo Lam TIBC DIRECT 220.0 ug/dL Critically low 250.0-450.0 [facility] Comment on above: Performed By: #### H H #### [facility] [address] [place] [address] Dr. Shilo Lam PROF 14(COMP METB)on 022 Albumin [Mass/Vol] 2.8 g/dL Critically low 3.4-5.0 [facility] Comment on above: Performed By: #### F REELIT #### [facility] [address] [place] [address] Dr. Shilo Lam Albumin/Globulin [Mass ratio] 0.6 {ratio} Normal [facility] Comment on above: Performed By: #### F REELIT #### [facility] [address] [address] [address] Shilo Lam ALP [Catalytic activity/Vol] 219 U/L Critically high 46-116 [facility] Comment on above: Performed By: #### F REELIT #### [facility] [address] [place] [address] Dr. Shilo Lam ALT [Catalytic activity/Vol] 33 U/L Normal 16-63 [facility] Comment on above: Performed By: #### F REELIT #### [facility] [address] [address] [address] Shilo Lam Anion gap [Moles/Vol] 14.7 mmol/L Normal Th [facility] Comment on above: Performed By: #### F REELIT #### [facility] [address] [place] [address] Dr. Shilo Lam AST [Catalytic activity/Vol] 22 U/L Normal 15-37 [facility] Comment on above: Performed By: #### F REELIT #### [facility] [address] [address] [address] Shilo Lam Bilirubin [Mass/Vol] 0.4 mg/dL Normal 0.2-1.0 [facility] Comment on above: Performed By: #### F REELIT #### [facility] [address] [address] [address] Shilo Lam Calcium [Mass/Vol] 8.4 mg/dL Critically low 8.5-10.1 Th [facility] Comment on above: Performed By: #### F REELIT #### [facility] [address] [address] [address] Shilo Lam Chloride [Moles/Vol] 109 mmol/L Critically high 98-107 [facility] Comment on above: Performed By: #### F REELIT #### [facility] [address] [address] [address] Shilo Lam CO2 [Moles/Vol] 21.3 mmol/L Normal 21.0-32.0 [facility] Comment on above: Performed By: #### F REELIT #### [facility] [address] [place] [address] Dr. Shilo Lam Creatinine [Mass/Vol] 3.99 mg/dL Critically high 0.70-1.30 [facility] Comment on above: Performed By: #### F REELIT #### [facility] [address] [place] [address] Dr. Shilo Lam EGFR-AF BERMUDIAN 19 mL/min/1.73m2 Critically low >=60 [facility] Comment on above: Performed By: #### F REELIT #### [facility] [address] [place] [address] Dr. Shilo Lam EGFR-NON AF BERMUDIAN 16 mL/min/1.73m2 Critically low >=60 [facility] Comment on above: Performed By: #### F REELIT #### [facility] [address] [place] [address] Dr. Shilo Lam Globulin (S) [Mass/Vol] 4.8 g/dL Normal [facility] Comment on above: Performed By: #### F REELIT #### [facility] [address] [place] [address] Dr. Shilo Lam Glucose [Mass/Vol] 137 mg/dL Critically high 74-106 [facility] Comment on above: Performed By: #### F REELIT #### [facility] [address] [place] [address] Dr. Shilo Lam Potassium [Moles/Vol] 4.0 mmol/L Normal 3.5-5.1 [facility] Comment on above: Performed By: #### F REELIT #### [facility] [address] [place] [address] Dr. Shilo Lam Protein [Mass/Vol] 7.6 g/dL Normal 6.4-8.2 [facility] Comment on above: Performed By: #### F REELIT #### [facility] [address] [place] [address] Dr. Shilo Lam Sodium [Moles/Vol] 141 mmol/L Normal 136-145 [facility] Comment on above: Performed By: #### F REELIT #### [facility] [address] [place] [address] Dr. Shilo Lam Urea nitrogen [Mass/Vol] 54.0 mg/dL Critically high 7.0-18.0 [facility] Comment on above: Performed By: #### F REELIT #### [facility] [address] [place] [address] Dr. Shilo Lam Urea nitrogen/Creatinine [Mass ratio] 13.5 mg/mg Normal [facility] Comment on above: Performed By: #### F REELIT #### [facility] [address] [place] [address] Dr. Shilo Lam UA RANDOMon 09-19-2021 Bilirubin Ql (U) Negative Normal NEGATIVE [facility] Comment on above: Performed By: #### H H #### [facility] [address] [place] [address] Dr. Shilo Lam Clarity (U) CLEAR Normal CLEAR [facility] Comment on above: Performed By: #### H H #### [facility] [address] [place] [address] Dr. Shilo Lam Color (U) LT. YELLOW Normal YELLOW [facility] Comment on above: Performed By: #### H H #### [facility] [address] [place] [address] Dr. Shilo Lam Glucose Ql (U) 100 mg/dl Abnormal NEGATIVE [facility] Comment on above: Performed By: #### H H #### [facility] [address] [place] [address] Dr. Shilo Lam Hemoglobin Ql (U) Negative Normal NEGATIVE [facility] Comment on above: Performed By: #### H H #### [facility] [address] [place] [address] Dr. Shilo Lam Ketones Ql (U) Negative Normal NEGATIVE [facility] Comment on above: Performed By: #### H H #### [facility] [address] [place] [address] Dr. Shilo Lam LEUKOCYTES Negative Normal NEGATIVE [facility] Comment on above: Performed By: #### H H #### [facility] [address] [place] [address] Dr. Shilo Lam Nitrite Ql (U) Negative Normal NEGATIVE [facility] Comment on above: Performed By: #### H H #### [facility] [address] [place] [address] Dr. Shilo Lam pH (U) 5.5 [pH] Normal 5-9 [facility] Comment on above: Performed By: #### H H #### [facility] [address] [place] [address] Dr. Shilo Lam SPEC GRAVITY 1.025 Normal 1.005-<=1.025 [facility] Comment on above: Performed By: #### H H #### [facility] [address] [place] [address] Dr. Shilo Lam UA PROTEIN >300 Abnormal NEGATIVE/ TRACE [facility] Comment on above: Performed By: #### H H #### [facility] [address] [place] [address] Dr. Shilo Lam Urobilinogen Qn (U) 0.2 {Gama'U}/dL Normal 0.2 - 1. 0 [facility] Comment on above: Performed By: #### H H #### [facility] [address] [place] [address] Dr. Shilo Lam URINE T PROTEIN CREAT RATIOo n 09-19-2021 Protein (U) [Mass/Vol] 862.4 mg/dL Critically high <=12.0 [facility] Comment on above: Performed By: #### H BSANS #### [facility] [address] [place] [address] Dr. Shilo Lam UR PROT CREAT RAT 8.46 Normal [facility] Comment on above: Performed By: #### H BSANS #### [facility] [address] [address] [address] Shilo Lam URINE CREAT 101.94 mg/dL Normal 20.00-300.00 [facility] Comment on above: Performed By: #### H BSANS #### [facility] [address] [place] [address] Dr. Shilo Lam VITAMIN D 25 OHon 09-19-2021 VIT D 25-OH 27.7 ng/mL Normal [facility] Comment on above: Performed By: #### H H #### [facility] [address] [place] [address] Dr. Shilo Lam VIT D RANGES SEE BELOW Normal [facility] Comment on above: Result Comment: <20 ng/mL Vit D deficient 20 - <30 ng/mL Vit D insufficient 30 - 100 ng/mL Vit D sufficient >100 ng/mL Potential Toxicity Performed By: #### H H #### [facility] [address] [place] [address] Dr. Shilo Lam Cardiovascular Lab Reporton 05-21-2021 Cardiovascular Lab Report [facility] Patient Name: Gopal Yates [facility] MR #: [id number] Physician: Casimiro Khalil of [facility] Medicine Service Date: 05/20/2021 Division of Birthdate: 1965 Cardiology Room #: Adult Cardiovascular Services [address] [address] Cardiovascular Laboratory Report INDICATION: The patient is a 55-year-old man with complex history including coronary artery disease, chronic systolic heart failure, and chronic renal insufficiency. He has been evaluated several times, recently in Cardiology Clinic because of worsening renal function despite diuresis. His BNP is significantly elevated. Because of that, he was referred for cardiac catheterization to assess his filling pressures and pulmonary pressures. PROCEDURES: 1. Access into right internal jugular vein under ultrasound guidance. 2. Right heart catheterization. METHODS: Procedure was explained to the patient with risks and benefits. He signed consent. 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 The right neck area was prepped and draped in usual fashion. Micropuncture technique and ultrasound guidance was used for access in the right internal jugular vein. A 6-[place] x 11 cm sheath was placed. A 6-[place] Silvestre catheter was used for heart catheterization with measurement pressures and calculation of cardiac output using the estimated Marysol method. Silvestre catheter was removed. Manual compression applied for hemostasis. He tolerated the procedure well. He will be observed for half an hour and then discharged to home. TOTAL SEDATION TIME: 0 minutes. TOTAL FLUORO TIME: 2.11 minutes. TOTAL AIR KERMA: 104 mGy. TOTAL CONTRAST VOLUME: 0 mL. HEMODYNAMICS: RA 6, RV 51/1, 11. PA 51/15, mean 30. Pulmonary capillary wedge pressure 20 (note that large V waves were seen on the pulmonary capillary wedge pressure tracing). Blood pressure 131/69, mean 100. PA sat 75%, AO sat 100%, IVC sat 80%, SVC sat 77%. Cardiac output 11.61, cardiac index 5.23. FINDINGS: 1. Zdpn-wy-becxxchh elevation of filling pressures. 2. Xvxw-hv-jpvrymxi pulmonary hypertension. 3. No evidence of intracardiac shunt. 4. Increased cardiac output and cardiac index. RECOMMENDATIONS: 1. Continue medical therapy. 2. The patient's diuretic therapy will be adjusted for Bumex to be reduced from 2 mg t.i.d. to 2 mg b.i.d. given that he has been on twice daily Bumex for the past 2 days and his filling pressures appear to be appropriate for him at this stage. 3. Follow up in Cardiology and Nephrology Clinics. 4. The patient will obtain a BNP and a BMP in 1 week. Electronically Signed by: Casimiro Sosa M.D. 05/25/2021 10:24 P Casimiro Sosa M.D. Date Dict: 05/20/2021/05:08 P/Casimiro Sosa M.D. Date Trans: 05/21/2021 03:58 A/katey [id number] cc: Douglas Juárez M.D. [address] [place] [address] Normal [facility] CBC W/DIFFon 05-20-2021 ABS IMM GRANS 0.0 10*3/uL Normal 0.0-0.2 [facility] Comment on above: Performed By: #### 5 0103 #### [facility] [address] [place] [address], [facility] ABS NEUTROPHILS 4.5 10*3/uL Normal 1.6-7.6 [facility] Comment on above: Performed By: #### 5 0103 #### [facility] [address] [place] [address], [facility] Basophils (Bld) [#/Vol] 0.0 10*3/uL Normal 0.0-0.2 [facility] Comment on above: Performed By: #### 5 0103 #### [facility] [address] [place] [address], [facility] Basophils/100 WBC (Bld) 0.5 % Normal 0.0-1.0 T noe [facility] Comment on above: Performed By: #### 5 0103 #### [facility] [address] [facility] [place] [address], [facility] Eosinophils (Bld) [#/Vol] 0.2 10*3/uL Normal 0.0-0.5 [facility] Comment on above: Performed By: #### 5 0103 #### [facility] [address] [place] [address], [facility] Eosinophils/100 WBC (Bld) 3.1 % Normal 0.0-6.0 [facility] Comment on above: Performed By: #### 5 0103 #### [facility] [address] [facility] [place] [address], [facility] Erythrocyte distribution width (RBC) [Ratio] 16.1 % High 11.5-15.0 [facility] Comment on above: Performed By: #### 5 0103 #### [facility] [address] [facility]. [address] Hematocrit (Bld) [Volume fraction] 27.0 % Low 39.0-50.0 [facility] Comment on above: Performed By: #### 5 0103 #### [facility] [address] [facility]. [address] Hemoglobin (Bld) [Mass/Vol] 8.5 g/dL Low 13.0-17.0 [facility] Comment on above: Performed By: #### 5 0103 #### [facility] [address] IMMATURE GRANS 0.2 % Normal 0.0-1.0 [facility] Comment on above: Performed By: #### 5 0103 #### [facility] [address] Lymphocytes (Bld) [#/Vol] 0.7 10*3/uL Low 1.2-4.0 [facility] Comment on above: Performed By: #### 5 0103 #### [facility] [address] Lymphocytes/100 WBC (Bld) 11.1 % Low 20.0-45.0 [facility] Comment on above: Performed By: #### 5 0103 #### [facility] [address] [facility]. [address] MCH (RBC) [Entitic mass] 25.1 pg Low 27.0-33.0 [facility] Comment on above: Performed By: #### 5 3 #### [facility] [address] [facility] [place] [address], [facility] MCHC (RBC) [Mass/Vol] 31.5 g/dL Low 32.0-35.0 [facility] Comment on above: Performed By: #### 102 #### [facility] [address] [facility] [place] [address], [facility] MCV (RBC) [Entitic vol] 79.9 fL Low 82.0-98.0 T he [facility] Comment on above: Performed By: #### 102 #### [facility] [address] [place] [address], [facility] Monocytes (Bld) [#/Vol] 0.7 10*3/uL Normal 0.1-1.0 [facility] Comment on above: Performed By: #### 5 102 #### [facility] [address] MONOS 12.1 % High 5.0-12.0 [facility] Comment on above: Performed By: #### 5 102 #### [facility] [address] Neutrophils/100 WBC (Bld) 73.0 % High 40.0-72.0 [facility] Comment on above: Performed By: #### 102 #### [facility] [address] [place] [address], [facility] Nucleated RBC/100 WBC (Bld) [Ratio] 0 % Normal 0-0 [facility] Comment on above: Performed By: #### 5 102 #### [facility] [address] [place] [address], [facility] PLAT CNT 154 10*3/uL Normal 150-400 [facility] Comment on above: Performed By: #### 102 #### [facility] [address] [place] [address], [facility] RBC (Bld) [#/Vol] 3.38 10*6/uL Low 4.20-5.70 [facility] Comment on above: Performed By: #### 5 102 #### [facility] [address] WBC (Bld) [#/Vol] 6.14 10*3/uL Normal 4.00-10.60 [facility] Comment on above: Performed By: #### 5 0103 #### [facility] [address] [facility]. [address] POC SARS COV2 IDon 2 SARS-CoV-2 (COVID-19) RNA HUMBLE+probe Ql (Unsp spec) Negative Normal NEGATIVE [facility] Comment on above: Result Comment: ID N OW COVID-19 assay performed on the ID NOW Instrument is a rapid molecular in vitro diagnostic test utilizing an isothermal nucleic acid amplification technology intended for the qualitative detection of nucleic acid from the SARS-CoV-2 virus in direct anterior nasal (nasal), nasopharyngeal or throat swabs from individuals who are suspected of COVID-19 by their healthcare provider within the first seven days of the onset of symptoms. Testing is limited to laboratories certified under the Clinical Laboratory Improvement Amendments of 1988 (CLIA), 42 U.S.C. ???263a,that meet the requirements to perform high, moderate, or waived complexity tests. The ID NOW COVID-19 assay is also authorized for use at the Point of Care (POC), i.e., in patient care settings operating under a CLIA Certificate of Waiver, Certificate of Compliance, or Certificate of Accreditation. Performed By: #### 3 1921 #### [facility] [address] Vital Signs Date Time Vital Sign Value Performing Clinician Facility 06-15-2022 10:20-0400 Body temperature 97.8 [degF] MD Douglas Juárez Work Phone: [facility] 06-15-2022 10:20-0400 Diastolic blood pressure 64 mm[Hg] MD Douglas Juárez Work Phone: [facility] 06-15-2022 10:20-0400 Heart rate 55 /min MD Douglas Juárez Work Phone: [facility] 06-15-2022 10:20-0400 Respiratory rate 22 /min MD Douglas Juárez Work Phone: [facility] 06-15-2022 10:20-0400 SaO2% (BldA) [Mass fraction] 92 % MD Douglas Juárez Work Phone: [facility] 06-15-2022 10:20-0400 Systolic blood pressure 128 mm[Hg] MD Douglas Juárez Work Phone: [facility] 06-15-2022 04:31-0400 Inhaled oxygen flow rate 1 L/min MD Douglas Juárez Work Phone: [facility] 06-12-2022 14:43-0400 Body height 193.04 cm MD Douglas Juárez Work Phone: [facility] 06-12-2022 04:46-0400 Body weight 92 kg MD Douglas Juárez Work Phone: [facility] 06-11-2022 21:13-0400 Body height 193.04 cm MD Douglas Juárez Work Phone: [facility] 06-11-2022 21:13-0400 Body temperature 98.5 [degF] MD Douglas Juárez Work Phone: [facility] 06-11-2022 21:13-0400 Body weight 92 kg MD Douglas Juárez Work Phone: [facility] 06-11-2022 21:13-0400 Diastolic blood pressure 77 mm[Hg] MD Douglas Juárez Work Phone: [facility] 06-11-2022 21:13-0400 Heart rate 66 /min MD Douglas Juárez Work Phone: [facility] 06-11-2022 21:13-0400 Respiratory rate 21 /min MD Douglas Juárez Work Phone: [facility] 06-11-2022 21:13-0400 SaO2% (BldA) [Mass fraction] 92 % MD Douglas Juárez Work Phone: [facility] 06-11-2022 21:13-0400 Systolic blood pressure 161 mm[Hg] MD Douglas Jáurez Work Phone: [facility] 06-08-2022 11:40-0400 Body temperature 98.1 [degF] MD Douglas Juárez Work Phone: [facility] 06-08-2022 11:40-0400 Diastolic blood pressure 60 mm[Hg] MD Douglas Juárez Work Phone: [facility] 06-08-2022 11:40-0400 Heart rate 62 /min MD Douglas Juárez Work Phone: [facility] 06-08-2022 11:40-0400 Systolic blood pressure 113 mm[Hg] MD Douglas Juárez Work Phone: [facility] 06-05-2022 11:21-0400 Respiratory rate 18 /min MD Douglas Juárez Work Phone: [facility] 06-05-2022 11:21-0400 SaO2% (BldA) [Mass fraction] 97 % MD Douglas Juárez Work Phone: [facility] 05-28-2022 15:20-0500 Diastolic blood pressure 72 mm[Hg] MD Douglas Juárez Work Phone: [facility] 05-28-2022 15:20-0500 Heart rate 64 /min MD Douglas Juárez Work Phone: [facility] 05-28-2022 15:20-0500 Respiratory rate 16 /min MD Douglas Juárez Work Phone: [facility] 05-28-2022 15:20-0500 SaO2% (BldA) [Mass fraction] 95 % MD Douglas Juárez Work Phone: [facility] 05-28-2022 15:20-0500 Systolic blood pressure 142 mm[Hg] MD Douglas Juárez Work Phone: [facility] 05-28-2022 14:46-0500 Body temperature 98.4 [degF] MD Douglas Juárez Work Phone: [facility] 05-28-2022 14:16-0500 Inhaled oxygen flow rate 8 L/min MD Douglas Juárez Work Phone: [facility] 05-28-2022 12:45-0500 Body height 193.04 cm MD Douglas Juárez Work Phone: [facility] 05-28-2022 12:45-0500 Body mass index (BMI) [Ratio] 23.1 kg/m2 MD Douglas Juárez Work Phone: [facility] 05-28-2022 12:45-0500 Body weight 86.18 kg MD Douglas Juárez Work Phone: [facility] 05-25-2022 16:07-0500 Body temperature 98.2 [degF] MD Douglas Juárez Work Phone: [facility] 05-25-2022 16:07-0500 Diastolic blood pressure 73 mm[Hg] MD Douglas Juárez Work Phone: [facility] 05-25-2022 16:07-0500 Heart rate 62 /min MD Douglas Juárez Work Phone: [facility] 05-25-2022 16:07-0500 SaO2% (BldA) [Mass fraction] 98 % MD Douglas Juárez Work Phone: [facility] 05-25-2022 16:07-0500 Systolic blood pressure 154 mm[Hg] MD Douglas Juárez Work Phone: [facility] 05-25-2022 11:37-0500 Respiratory rate 16 /min MD Douglas Juárez Work Phone: [facility] 05-25-2022 05:13-0500 Body weight 87 kg MD Douglas Juárez Work Phone: [facility] 05-21-2022 17:46-0500 Body height 193.04 cm MD Douglas Juárez Work Phone: [facility] 05-21-2022 17:46-0500 Body mass index (BMI) [Ratio] 22.6 kg/m2 MD Douglas Juárez Work Phone: [facility] 05-20-2022 15:10-0500 Body temperature 99 [degF] MD Douglas Juárez Work Phone: [facility] 05-20-2022 15:10-0500 Diastolic blood pressure 64 mm[Hg] MD Douglas Juárez Work Phone: [facility] 05-20-2022 15:10-0500 Heart rate 69 /min MD Douglas Juárez Work Phone: [facility] 05-20-2022 15:10-0500 Respiratory rate 18 /min MD Douglas Juárez Work Phone: [facility] 05-20-2022 15:10-0500 SaO2% (BldA) [Mass fraction] 95 % MD Douglas Juárez Work Phone: [facility] 05-20-2022 15:10-0500 Systolic blood pressure 126 mm[Hg] MD Douglas Juárez Work Phone: [facility] 05-20-2022 10:16-0500 Body height 193.04 cm MD Douglas Juárez Work Phone: [facility] 05-20-2022 10:16-0500 Body weight 90.71 kg MD Douglas Juárez Work Phone: [facility] 05-08-2022 15:41-0500 Body temperature 99.2 [degF] MD Douglas Juárez Work Phone: [facility] 05-08-2022 15:41-0500 Diastolic blood pressure 64 mm[Hg] MD Douglas Juárez Work Phone: [facility] 05-08-2022 15:41-0500 Heart rate 60 /min MD Douglas Juárez Work Phone: [facility] 05-08-2022 15:41-0500 Respiratory rate 16 /min MD Douglas Juárez Work Phone: [facility] 05-08-2022 15:41-0500 SaO2% (BldA) [Mass fraction] 95 % MD Douglas Juárez Work Phone: [facility] 05-08-2022 15:41-0500 Systolic blood pressure 138 mm[Hg] MD Douglas Juárez Work Phone: [facility] 05-08-2022 10:00-0500 Body height 193.04 cm MD Douglas Juárez Work Phone: [facility] 05-08-2022 04:10-0500 Body weight 90.71 kg MD Douglas Juárez Work Phone: [facility] 05-07-2022 11:42-0500 Body mass index (BMI) [Ratio] 23.8 kg/m2 MD Douglas Juárez Work Phone: [facility] 05-05-2022 16:22-0500 Diastolic blood pressure 58 mm[Hg] MD Douglas Juárez Work Phone: [facility] 05-05-2022 16:22-0500 Heart rate 65 /min MD Douglas Juárez Work Phone: [facility] 05-05-2022 16:22-0500 Respiratory rate 18 /min MD Douglas Juárez Work Phone: [facility] 05-05-2022 16:22-0500 SaO2% (BldA) [Mass fraction] 100 % MD Douglas Juárez Work Phone: [facility] 05-05-2022 16:22-0500 Systolic blood pressure 126 mm[Hg] MD Douglas Juárez Work Phone: [facility] 05-05-2022 11:33-0500 Body height 193.04 cm MD Douglas Juárez Work Phone: [facility] 05-05-2022 11:33-0500 Body temperature 98.2 [degF] MD Douglas Juárez Work Phone: [facility] 05-05-2022 11:33-0500 Body weight 89 kg MD Douglas Juárez Work Phone: [facility] 04-16-2022 14:51-0500 Body height 193 cm Monik Dotson APRN.GLOBAL CLIMATE CHANGE RESEARCHER Work Phone: [facility] 04-16-2022 14:51-0500 Body temperature 97 [degF] Monik Dotson APRN.GLOBAL CLIMATE CHANGE RESEARCHER Work Phone: [facility] 04-16-2022 14:51-0500 Body weight 89.81 kg Monik Dotson APRN.GLOBAL CLIMATE CHANGE RESEARCHER Work Phone: [facility] 04-16-2022 14:51-0500 Diastolic blood pressure 61 mm[Hg] Monik Dotson APRN.GLOBAL CLIMATE CHANGE RESEARCHER Work Phone: [facility] 04-16-2022 14:51-0500 Heart rate 59 /min Monik Dotson APRN.GLOBAL CLIMATE CHANGE RESEARCHER Work Phone: [facility] 04-16-2022 14:51-0500 Respiratory rate 18 /min Monik Dotson APRN.GLOBAL CLIMATE CHANGE RESEARCHER Work Phone: [facility] 04-16-2022 14:51-0500 SaO2% (BldA) [Mass fraction] 95 % Monik Dotson APRN.GLOBAL CLIMATE CHANGE RESEARCHER Work Phone: [facility] 04-16-2022 14:51-0500 Systolic blood pressure 136 mm[Hg] Monik Dotson APRN.GLOBAL CLIMATE CHANGE RESEARCHER Work Phone: [facility] 03-24-2022 14:00-0500 Body height 193.04 cm [employer] Other [employer] Other 03-24-2022 14:00-0500 Body mass index (BMI) [Ratio] 23.59 kg/m2 [employer] Other [employer] Other 03-24-2022 14:00-0500 Body temperature 97.7 [degF] Cristobal Schmitts Other [employer] Other 03-24-2022 14:00-0500 Body weight 87.91 kg Cristobal Schmitts Other [employer] Other 03-24-2022 14:00-0500 Diastolic blood pressure 70 mm[Hg] Cristobal Schmitts Other [employer] Other 03-24-2022 14:00-0500 Respiratory rate 18 /min Cristobal Schmitts Other [employer] Other 03-24-2022 14:00-0500 SaO2% (BldA) [Mass fraction] 98 % Cristobal Butts Other [employer] Other 03-24-2022 14:00-0500 Systolic blood pressure 139 mm[Hg] Cristobal Butts Other [employer] Other 03-18-2022 14:37-0500 Body temperature 97.5 [degF] Lab/[employer] Work Phone: [facility] 03-18-2022 14:37-0500 Diastolic blood pressure 92 mm[Hg] [facility] [place] Work Phone: [facility] 03-18-2022 14:37-0500 Heart rate 60 /min [facility] [place] Work Phone: [facility] 03-18-2022 14:37-0500 Respiratory rate 18 /min [facility]/[employer] [place] Work Phone: [facility] 03-18-2022 14:37-0500 SaO2% (BldA) [Mass fraction] 97 % [facility]/[place] Work Phone: [facility] 03-18-2022 14:37-0500 Systolic blood pressure 152 mm[Hg] [facility] [place] Work Phone: [facility] 02-04-2022 14:05-0500 Body temperature 97.81 [degF] [facility] [place] Work Phone: [facility] 02-04-2022 14:05-0500 Diastolic blood pressure 66 mm[Hg] [facility] Work Phone: [facility] 02-04-2022 14:05-0500 Heart rate 66 /min [facility] Work Phone: [facility] 02-04-2022 14:05-0500 Respiratory rate 18 /min [facility] Work Phone: [facility] 02-04-2022 14:05-0500 SaO2% (BldA) [Mass fraction] 99 % [facility] Work Phone: [facility] 02-04-2022 14:05-0500 Systolic blood pressure 141 mm[Hg] [facility] Work Phone: [facility] 01-14-2022 14:22-0400 Body height 193 cm Monik Dotson APRN.GLOBAL CLIMATE CHANGE RESEARCHER Work Phone: [facility] 01-14-2022 14:22-0400 Body temperature 97.59 [degF] Monik Dotson APRN.GLOBAL CLIMATE CHANGE RESEARCHER Work Phone: [facility] 01-14-2022 14:22-0400 Body weight 86.46 kg Monik Dotson APRN.GLOBAL CLIMATE CHANGE RESEARCHER Work Phone: [facility] 01-14-2022 14:22-0400 Diastolic blood pressure 58 mm[Hg] Monik Dotson APRN.GLOBAL CLIMATE CHANGE RESEARCHER Work Phone: [facility] 01-14-2022 14:22-0400 Heart rate 57 /min Monik Dotson APRN.GLOBAL CLIMATE CHANGE RESEARCHER Work Phone: [facility] 01-14-2022 14:22-0400 Respiratory rate 16 /min Monik Dotson APRN.GLOBAL CLIMATE CHANGE RESEARCHER Work Phone: [facility] 01-14-2022 14:22-0400 SaO2% (BldA) [Mass fraction] 97 % Monik Dotson APRN.GLOBAL CLIMATE CHANGE RESEARCHER [facility] [facility] 01-14-2022 14:22-0400 Systolic blood pressure 130 mm[Hg] Monik Dotson APRN.GLOBAL CLIMATE CHANGE RESEARCHER Work Phone: [facility] 12-30-2021 11:00-0400 Body height 193.04 cm Ford Delongshannon Other [employer] Other 12-30-2021 11:00-0400 Body mass index (BMI) [Ratio] 23.73 kg/m2 Ford Delongshannon Other [employer] Other 12-30-2021 11:00-0400 Body weight 88.45 kg Ford Delongshannon Other [employer] Other 12-17-2021 14:08-0400 Body height 193 cm Conrad Rojas MD Work Phone: [facility] 12-17-2021 14:08-0400 Body temperature 97.7 [degF] Conrad Rojas MD Work Phone: [facility] 12-17-2021 14:08-0400 Body weight 87.82 kg Conrad Rojas MD Work Phone: [facility] 12-17-2021 14:08-0400 Diastolic blood pressure 65 mm[Hg] Conrad Rojas MD Work Phone: [facility] 12-17-2021 14:08-0400 Heart rate 56 /min Conrad Rojas MD Work Phone: [facility] 12-17-2021 14:08-0400 Respiratory rate 16 /min Conrad Rojas MD Work Phone: [facility] 12-17-2021 14:08-0400 SaO2% (BldA) [Mass fraction] 98 % Conrad Rojas MD Work Phone: [facility] 12-17-2021 14:08-0400 Systolic blood pressure 132 mm[Hg] Conrad Rojas MD Work Phone: [facility] 12-09-2021 14:00-0400 Body height 193.04 cm Aziz Bakhous Other [employer] Other 12-09-2021 14:00-0400 Body mass index (BMI) [Ratio] 24.17 kg/m2 Aziz Bakhous Other [employer] Other 12-09-2021 14:00-0400 Body weight 90.08 kg Aziz Bakhous Other [employer] Other 12-09-2021 14:00-0400 Diastolic blood pressure 68 mm[Hg] Aziz Bakhous Other [employer] Other 12-09-2021 14:00-0400 Respiratory rate 18 /min Aziz Bakhous Other [employer] Other 12-09-2021 14:00-0400 SaO2% (BldA) [Mass fraction] 96 % Aziz Bakhous Other [employer] Other 12-09-2021 14:00-0400 Systolic blood pressure 137 mm[Hg] Aziz Bakhous Other [employer] Other 12-03-2021 13:40-0400 Body height 193 cm Monik Dotson APRN.CNP Work Phone: [facility] 12-03-2021 13:40-0400 Body temperature 97.59 [degF] Monik Dotson APRN.GLOBAL CLIMATE CHANGE RESEARCHER Work Phone: [facility] 12-03-2021 13:40-0400 Body weight 89.63 kg Monik Dotson APRN.GLOBAL CLIMATE CHANGE RESEARCHER Work Phone: [facility] 12-03-2021 13:40-0400 Diastolic blood pressure 69 mm[Hg] Monik Dotson APRN.GLOBAL CLIMATE CHANGE RESEARCHER Work Phone: [facility] 12-03-2021 13:40-0400 Heart rate 60 /min Monik Dotson APRN.GLOBAL CLIMATE CHANGE RESEARCHER Work Phone: [facility] 12-03-2021 13:40-0400 Respiratory rate 16 /min Monik Dotson APRN.GLOBAL CLIMATE CHANGE RESEARCHER Work Phone: [facility] 12-03-2021 13:40-0400 SaO2% (BldA) [Mass fraction] 98 % Monik Dotson APRN.GLOBAL CLIMATE CHANGE RESEARCHER Work Phone: [facility] 12-03-2021 13:40-0400 Systolic blood pressure 142 mm[Hg] Monik Dotson APRN.GLOBAL CLIMATE CHANGE RESEARCHER Work Phone: [facility] 11-19-2021 13:55-0400 Body temperature 98.1 [degF] [facility] Work Phone: [facility] 11-19-2021 13:55-0400 Diastolic blood pressure 63 mm[Hg] [facility] [place] Work Phone: [facility] 11-19-2021 13:55-0400 Heart rate 59 /min [facility] Work Phone: [facility] 11-19-2021 13:55-0400 Respiratory rate 18 /min [facility] Work Phone: [facility] 11-19-2021 13:55-0400 SaO2% (BldA) [Mass fraction] 97 % [facility] [place] Work Phone: [facility] 11-19-2021 13:55-0400 Systolic blood pressure 138 mm[Hg] [facility] [place] Work Phone: [facility] 11-17-2021 14:23-0400 Body temperature 97.9 [degF] MD Douglas Juárez Work Phone: [facility] 11-17-2021 14:23-0400 Diastolic blood pressure 66 mm[Hg] MD Douglas Juárez Work Phone: [facility] 11-17-2021 14:23-0400 Heart rate 51 /min MD Douglas Juárez Work Phone: [facility] 11-17-2021 14:23-0400 Respiratory rate 18 /min MD Douglas Juárez Work Phone: [facility] 11-17-2021 14:23-0400 SaO2% (BldA) [Mass fraction] 97 % MD Douglas Juárez Work Phone: [facility] 11-17-2021 14:23-0400 Systolic blood pressure 132 mm[Hg] MD Douglas Juárez Work Phone: [facility] 10-22-2021 13:52-0400 Body temperature 98.01 [degF] [facility] [place] Work Phone: [facility] 10-22-2021 13:52-0400 Diastolic blood pressure 60 mm[Hg] [facility] Work Phone: [facility] 10-22-2021 13:52-0400 Heart rate 65 /min [facility] Work Phone: [facility] 10-22-2021 13:52-0400 Respiratory rate 18 /min [facility] [place] Work Phone: [facility] 10-22-2021 13:52-0400 Systolic blood pressure 140 mm[Hg] [facility] [place] Work Phone: [facility] 10-02-2021 15:50-0400 Body height 193 cm Conrad Rojas MD Work Phone: [facility] 10-02-2021 15:50-0400 Body temperature 97.5 [degF] Conrad Rojas MD Work Phone: [facility] 10-02-2021 15:50-0400 Body weight 91.63 kg Conrad Rojas MD Work Phone: [facility] 10-02-2021 15:50-0400 Diastolic blood pressure 58 mm[Hg] Conrad Rojas MD Work Phone: [facility] 10-02-2021 15:50-0400 Heart rate 61 /min Conrad Rojas MD Work Phone: [facility] 10-02-2021 15:50-0400 Respiratory rate 18 /min Conrad Rojas MD Work Phone: [facility] 10-02-2021 15:50-0400 SaO2% (BldA) [Mass fraction] 97 % Conrad Rojas MD Work Phone: [facility] 10-02-2021 15:50-0400 Systolic blood pressure 138 mm[Hg] Conrad Rojas MD Work Phone: [facility] 09-24-2021 14:40-0400 Body height 193.04 cm Cristobal Butts Other [employer] Other 09-24-2021 14:40-0400 Body mass index (BMI) [Ratio] 24.54 kg/m2 Cristobal Butts Other [employer] Other 09-24-2021 14:40-0400 Body temperature 96.9 [degF] Cristobal Butts Other [employer] Other 09-24-2021 14:40-0400 Body weight 91.45 kg Cristobal Butts Other [employer] Other 09-24-2021 14:40-0400 Diastolic blood pressure 64 mm[Hg] Aziz Bakhous Other [employer] Other 09-24-2021 14:40-0400 Respiratory rate 18 /min Aziz Bakhous Other [employer] Other 09-24-2021 14:40-0400 SaO2% (BldA) [Mass fraction] 98 % Aziz Bakhous Other [employer] Other 09-24-2021 14:40-0400 Systolic blood pressure 124 mm[Hg] Aziz Bakhous Other [employer] Other 07-15-2021 12:40-0400 Body height 193.04 cm Aziz Bakhous Other [employer] Other 07-15-2021 12:40-0400 Body mass index (BMI) [Ratio] 24.93 kg/m2 Aziz Bakhous Other [employer] Other 07-15-2021 12:40-0400 Body temperature 96.3 [degF] Aziz Bakhous Other [employer] Other 07-15-2021 12:40-0400 Body weight 92.9 kg Aziz Bakhous Other [employer] Other 07-15-2021 12:40-0400 Diastolic blood pressure 64 mm[Hg] Aziz Bakhous Other [employer] Other 07-15-2021 12:40-0400 Respiratory rate 18 /min Aziz Bakhous Other [employer] Other 07-15-2021 12:40-0400 SaO2% (BldA) [Mass fraction] 98 % Aziz Bakhous Other [employer] Other 07-15-2021 12:40-0400 Systolic blood pressure 121 mm[Hg] Aziz Bakhous Other [employer] Other 06-03-2021 16:40-0400 Body height 193.04 cm Aziz Bakhous Other [employer] Other 06-03-2021 16:40-0400 Body mass index (BMI) [Ratio] 23.86 kg/m2 Aziz Bakhous Other [employer] Other 06-03-2021 16:40-0400 Body temperature 96.7 [degF] Aziz Bakhous Other [employer] Other 06-03-2021 16:40-0400 Body weight 88.91 kg Aziz Bakhous Other [employer] Other 06-03-2021 16:40-0400 Diastolic blood pressure 67 mm[Hg] Aziz Bakhous Other [employer] Other 06-03-2021 16:40-0400 Respiratory rate 18 /min Aziz Bakhous Other [employer] Other 06-03-2021 16:40-0400 SaO2% (BldA) [Mass fraction] 98 % Aziz Bakhous Other [employer] Other 06-03-2021 16:40-0400 Systolic blood pressure 116 mm[Hg] Cristobal Butts Other [facility] [employer] Other Encounters Encounter Date Encounter Type Care Provider Facility Start: 08-31-2023 ambulatory Facility:[facility] Start: 07-27-2023 End: 07-27-2023 ambulatory EDDY LARSEN Not Available Start: 03-08-2023 End: 03-08-2023 ambulatory EDDY LARSEN Not Available Start: 03-02-2023 End: 03-02-2023 ambulatory [facility] Start: 08-06-2022 End: 08-06-2022 ambulatory Douglas Juárez Facility:[facility] Start: 07-22-2022 End: 07-22-2022 ambulatory Eddy Larsen Facility:[facility] Start: 07-22-2022 End: 07-22-2022 ambulatory MD Douglas Juárez Work Phone: [facility] Work Phone: Start: 07-22-2022 End: 07-22-2022 Departed Referred MD Douglas Juárez Work Phone: [facility] [employer] Work Phone: Start: 07-22-2022 End: 07-22-2022 ambulatory [facility] Start: 07-15-2022 End: 07-16-2022 ambulatory Douglas Juárez Facility:[facility] Start: 07-15-2022 End: 07-15-2022 ambulatory MD Douglas Juárez Work Phone: [facility] Work Phone: Start: 07-15-2022 End: 07-15-2022 Discharged Recurring MD Douglas Juárez Work Phone: [facility]-Infusion Therapy - O/P Work Phone: Start: 07-09-2022 End: 07-10-2022 ambulatory PAOLA SARAH Facility:[facility] Start: 06-18-2022 End: 06-18-2022 ambulatory Ashutosh Thomas Other [facility] [employer] Other Start: 06-18-2022 Telephone encounter Ashutosh Thomas FP G Infectious Disease Start: 06-11-2022 End: 06-15-2022 Evaluation and management of inpatient Caleb Farrar Facility:[facility] Start: 06-11-2022 End: 06-15-2022 Evaluation and management of inpatient MD Douglas Juárez Work Phone: [facility] [place] [facility] Work Phone: Start: 06-10-2022 End: 06-10-2022 ambulatory Eddy Larsen Facility:[facility] Start: 06-10-2022 End: 06-10-2022 ambulatory MD Douglas Jáurez Work Phone: [facility] Work Phone: Start: 06-10-2022 End: 06-10-2022 Departed Referred MD Douglas Juárez Work Phone: [facility] Work Phone: Start: 06-08-2022 Telephone encounter Krissy Mirza RN Hematology/Oncology Comment on above: Patient Update; Appo intment Start: 06-08-2022 Registered Recurring MD Nicholas Juárez Work Phone: [facility]-Infusion Therapy - [facility] Work Phone: Start: 05-28-2022 End: 05-28-2022 ambulatory Sohan Kellogg Facility:[facility] Start: 05-28-2022 End: 05-28-2022 Admission to same day surgery center MD Douglas Juárez Work Phone: [facility]Surgery [facility] [employer] Start: 05-28-2022 End: 05-28-2022 ambulatory MD Douglas Juárez Work Phone: [facility] Work Phone: Start: 05-27-2022 Registered Recurring MD Nicholas Juárez Work Phone: [facility]Infusion Therapy - [facility] Work Phone: Start: 05-25-2022 End: 05-25-2022 ambulatory Ashutosh Thomas Other [facility] [employer] Other Start: 05-25-2022 Telephone encounter Ashutosh Thomas FP G Infectious Disease Start: 05-20-2022 End: 05-25-2022 Evaluation and management of inpatient Scotty Kahn Facility:[facility] Start: 05-20-2022 End: 05-25-2022 Evaluation and management of inpatient MD Douglas Juárez Work Phone: [facility] [place] [facility] Work Phone: Start: 05-19-2022 End: 05-19-2022 ambulatory Douglas Juárez Facility:[facility] Start: 05-19-2022 End: 05-19-2022 ambulatory MD Douglas Juárez Work Phone: [facility] Work Phone: Start: 05-19-2022 End: 05-19-2022 Departed Referred MD Douglas Juárez Work Phone: [facility] Work Phone: Start: 05-05-2022 End: 05-08-2022 Evaluation and management of inpatient MD Douglas Juárez Work Phone: [facility] Work Phone: Start: 05-05-2022 End: 05-06-2022 ambulatory BROCK IVERSON Facility:[facility] Start: 05-04-2022 End: 05-05-2022 ambulatory ALEN CEDILLO Facility:[facility] Start: 04-29-2022 End: 04-30-2022 ambulatory CRISTOBAL BUTTS [facility] [employer] Other Start: 04-29-2022 Telephone encounter Cristobal Butts [facility] Nephrology Start: 04-16-2022 End: 04-16-2022 ambulatory [facility] [place] Work Phone: Hematology/Oncology Comment on above: Anemia due to stage 3b chronic kidney disease (HCC) (Primary Dx) Anemia due to stage 3b chronic kidney disease (HCC) (Primary Dx); Hypothyroidism, unspecified type Start: 04-16-2022 End: 04-16-2022 Patient encounter procedure Monik Dotson APRN.GLOBAL CLIMATE CHANGE RESEARCHER Work Phone: [facility] Start: 03-24-2022 End: 03-24-2022 ambulatory Aziz Bakhous Other [employer] Other Start: 03-24-2022 Office outpatient vi sit 25 minutes Aziz Bakhous [facility] Nephrology Start: 03-24-2022 Telephone encounter Azmaryuri Josafathelens [facility] Nephrology Start: 03-18-2022 End: 03-19-2022 ambulatory [facility] [place] Work Phone: Hematology/Oncology Comment on above: Anemia due to stage 3b chronic kidney disease (HCC) (Primary Dx) Start: 03-17-2022 End: 03-18-2022 ambulatory AZIZ BAKHOUS Facility: Start: 02-18-2022 End: 02-18-2022 ambulatory [facility] [place] Work Phone: Hematology/Oncology Comment on above: Anemia due to stage 3b chronic kidney disease (HCC) (Primary Dx) Start: 02-04-2022 End: 02-05-2022 ambulatory JOSHRA ENRIQUEZJEFFERSON [facility] Facility:[facility] Start: 02-04-2022 End: 02-04-2022 ambulatory [facility] [place] Work Phone: Hematology/Oncology Comment on above: Anemia due to stage 3b chronic kidney disease (HCC) (Primary Dx) Start: 01-14-2022 End: 01-14-2022 ambulatory MONIK DOTSON Facility:[facility] Start: 01-14-2022 End: 01-14-2022 ambulatory Monik Dotson APRN.GLOBAL CLIMATE CHANGE RESEARCHER Work Phone: Hematology/Oncology Comment on above: Anemia due to stage 3b chronic kidney disease (HCC) (Primary Dx); Hypothyroidism, unspecified type Start: 01-14-2022 End: 01-14-2022 Patient encounter procedure Monik Dotson APRN.CNP Work Phone: [facility] Start: 12-30-2021 End: 12-30-2021 ambulatory Ford Sam Other [employer] Other Start: 12-30-2021 FQ[facility] visit new patient Ford Sam [facility] Start: 12-17-2021 End: 12-18-2021 ambulatory CONRAD ROJAS Facility:[facility] Start: 12-17-2021 End: 12-17-2021 ambulatory Conrad Rojas MD Work Phone: Hematology/Oncology Comment on above: Anemia due to stage 4 chronic kidney disease (HCC) (Primary Dx) Start: 12-17-2021 End: 12-17-2021 Patient encounter procedure Conrad Rojas MD Work Phone: [facility] Start: 12-09-2021 End: 12-09-2021 ambulatory Cristobal Butts Other [employer] Other Start: 12-09-2021 Office outpatient vi sit 25 minutes Aziz Bakhelens [facility] Start: 12-04-2021 End: 12-05-[address] DOCTOR VERAS Facility: Start: 12-04-2021 Telephone encounter Monik armstrong APRN.CNP Work Phone: Hematology/Oncology Comment on above: Infusions Start: 12-03-2021 End: 12-03-2021 ambulatory Monik Dotson APRN.CNP Work Phone: Hematology/Oncology Comment on above: Anemia due to stage 4 chronic kidney disease (HCC) (Primary Dx) Start: 12-03-2021 End: 12-03-2021 Patient encounter procedure Monik Dotson APRN.CNP Work Phone: [facility] Start: 11-19-2021 End: 11-20-2021 ambulatory [facility] [place] Work Phone: Hematology/Oncology Comment on above: Anemia due to stage 3b chronic kidney disease (HCC) (Primary Dx) Start: 11-17-2021 End: 11-17-2021 Discharged Recurring MD Douglas Juárez Work Phone: [facility]-Infusion Therapy - O/P Start: 11-05-2021 End: 11-05-2021 ambulatory CONRAD ABHYANKAR Facility:[facility] Start: 10-22-2021 End: 10-22-2021 ambulatory CONRAD ABHYANKAR Facility:[facility] Start: 10-22-2021 End: 10-22-2021 ambulatory [facility] [place] Work Phone: Hematology/Oncology Comment on above: Anemia due to stage 3b chronic kidney disease (HCC) (Primary Dx) Start: 10-16-2021 End: 10-17-2021 ambulatory CONRAD ABHYANKAR Facility:[facility] Start: 10-16-2021 End: 10-17-2021 ambulatory Conrad Rojas MD Work Phone: Hematology/Oncology Comment on above: Anemia due to stage 3b chronic kidney disease (HCC) (Primary Dx) Start: 10-16-2021 End: 10-17-2021 Telemedicine consultation with patient Conrad Rojas MD Work Phone: [facility] Start: 10-02-2021 End: 10-02-2021 ambulatory Conrad Rojas MD Work Phone: Hematology/Oncology Comment on above: Stage 3b chronic kid lester disease (HCC) (Primary Dx); Anemia due to stage 3b chronic kidney disease (HCC); Elevated serum immunoglobulin free light chains Start: 10-02-2021 End: 10-02-2021 Patient encounter procedure Conrad Rojas MD Work Phone: [facility] Start: 10-01-2021 Chart abstracting Conrad enriquez MD Work Phone: Hematology/Oncology Start: 09-30-2021 End: 10-01-[address] DOUGLAS JUÁREZ . Facility:[facility] Start: 09-24-2021 End: 09-24-2021 ambulatory Aziz Bakhous Other [employer] Other Start: 09-24-2021 Office outpatient vi sit 25 minutes Aziz Bakhous [facility] Start: 09-19-2021 End: 09-20-[address] DOCTOR MILES Facility:[facility] Start: 07-15-2021 End: 07-15-2021 ambulatory Aziz Bakhous Other [employer] Other Start: 07-15-2021 Office outpatient vi sit 25 minutes Aziz Bakhous [facility] Start: 06-03-2021 End: 06-03-2021 ambulatory Aziz Bakhous Other [employer] Other Start: 06-03-2021 Office outpatient vi sit 25 minutes Aziz Bakhous [facility] Procedures Date Procedure Procedure Detail Performing Clinician Start: 06-14-2022 Antibody screen Tino Larsen Comment on above: Result Comment: PERF ORMED BY: [facility] [address] [place] [address] PATHOLOGIST INTERNAL MEDICINE PHYSICIAN SESAR VAUGHN M.D. Start: 06-14-2022 Screening for occult blood in feces MD Douglas Juárez Work Phone: Start: 06-14-2022 CT of abdomen and pe lvis without contrast MD Douglas Juárez Work Phone: Start: 06-14-2022 CT of chest without contrast MD Douglas Juárez Work Phone: Start: 06-11-2022 Antibody screen Tino Larsen Comment on above: Order Comment: Trans fuse now? Y Number of units to transfuse now? 1 Transfuse now? Y Number of units to transfuse now? 1 Result Comment: PERF ORMED BY: [facility] [address] [place] [address] PATHOLOGIST INTERNAL MEDICINE PHYSICIAN SESAR VAUGHN M.D. Start: 06-11-2022 X-ray of right foot MD Douglas Juárez Work Phone: Start: 06-11-2022 Plain chest X-ray MD Lira Work Phone: Start: 06-11-2022 Blood culture for ba cteria, including anaerobic screen MD Douglas Juárez Work Phone: Start: 06-11-2022 SARS-CoV-2, Influenz a & RSV (PCR) MD Douglas Juárez Work Phone: Start: 06-10-2022 Aerobic microbial culture MD Douglas Juárez Work Phone: Start: 05-28-2022 Laparoscopic inserti on of peritoneal dialysis catheter MD Douglas Juárez Work Phone: Start: 05-22-2022 Insertion of periphe rally inserted central catheter MD Douglas Juárez Work Phone: Start: 05-21-2022 Amputation of toe MD Lira Work Phone: Start: 05-21-2022 Aerobic microbial culture MD Douglas Juárez Work Phone: Start: 05-21-2022 Anaerobic microbial culture MD Douglas Juárez Work Phone: Start: 05-21-2022 Investigation of tra nsfusion reaction MD Douglas Juárez Work Phone: Start: 05-21-2022 Antibody screen Tino Larsen Comment on above: Order Comment: Trans fuse now? Y Number of units to transfuse now? 1 Result Comment: PERF ORMED BY: [facility] [address] [place] [address] PATHOLOGIST INTERNAL MEDICINE PHYSICIAN SESAR VAUGHN M.D. Start: 05-20-2022 MRI of right foot MD Lira Work Phone: Start: 05-20-2022 Blood culture for ba cteria, including anaerobic screen MD Douglas Juárez Work Phone: Start: 05-20-2022 CT of chest without contrast MD Douglas Juárez Work Phone: Start: 05-20-2022 End: 05-20-2022 X-ray of right foot MD Douglas Juárez Work Phone: Start: 05-19-2022 Aerobic microbial culture MD Douglas Juárez Work Phone: Start: 05-07-2022 Aerobic microbial culture MD Douglas Juárez Work Phone: Start: 05-07-2022 Anaerobic microbial culture MD Douglas Juárez Work Phone: Start: 05-07-2022 Investigation of tra nsfusion reaction MD Douglas Juárez Work Phone: Start: 05-07-2022 Amputation of toe MD Lira Work Phone: Start: 05-06-2022 Pulse volume recorde r pneumoplethysmography MD Douglas Juárez Work Phone: Start: 05-05-2022 MRI of right foot MD Lira Work Phone: Start: 05-05-2022 Blood culture for ba cteria, including anaerobic screen MD Douglas Juárez Work Phone: Start: 05-05-2022 X-ray of right foot MD Douglas Juárez Work Phone: Start: 12-03-2021 Adult depression scr eening assessment Monik Dotson APRN.CNP Work Phone: H/O: surgery Recent surgical procedure on lower extremity MD Douglas Juárez Work Phone: Plan of Treatment Date Care Activity Detail Author Start: 04-16-2025 DIABETES SCREEN [facility] Start: 03-18-2025 DIABETES SCREEN [facility] Start: 02-18-2025 DIABETES SCREEN [facility] Start: 02-04-2025 DIABETES SCREEN [facility] Start: 01-14-2025 DIABETES SCREEN [facility] Start: 12-17-2024 DIABETES SCREEN DI[facility]ET[facility] SCREEN [facility] Start: 12-03-2024 DIABETES SCREEN DI[facility]ETES SCREEN [facility] Start: 11-19-2024 DIABETES SCREEN DIABETES SCREEN [facility] Start: 10-22-2024 DIABETES SCREEN DIABETES SCREEN [facility] Start: 10-02-2024 DIABETES SCREEN DIABETES SCREEN [facility] Start: 04-16-2023 [facility] Start: 04-16-2023 SERUM CREATININE SERUM CREATININE [facility] Start: 03-18-2023 HEMOGLOB[facility] Start: 03-18-2023 SERUM CREATININE SERUM CREATININE [facility] Start: 02-18-2023 HEMOGLOBIN/HEMATOCRIT HEMOGLOBIN/HEM [facility] Start: 02-18-2023 SERUM CREATININE SERUM CREATININE [facility] Start: 02-04-2023 HEMOGLOBIN/HEMATOCRIT HEMOGLOBIN/HEM [facility] Start: 02-04-2023 SERUM CREATININE SERUM CREATININE [facility] Start: 01-14-2023 HEMOGLOBIN/HEMATOCRIT HEMOGLOBIN/HEM [facility] Start: 01-14-2023 SERUM CREATININE SERUM CREATININE [facility] Start: 12-17-2022 HEMOGLOBIN[facility]CR[facility] Start: 12-17-2022 SERUM CREATININE SERUM CREATININE [facility] Start: 12-03-2022 Adult depression screening assessment DEPRESSION SCREENING [facility] Start: 12-03-2022 HEMOGLOBIN[facility]CR[facility] Start: 12-03-2022 SERUM CREATININE SERUM CREATININE [facility] Start: 11-19-2022 HEMOGLOBIN/HEMATOCRIT HEMOGLOBIN/HEM [facility] Start: 11-19-2022 SERUM CREATININE SERUM CREATININE [facility] Start: 10-22-2022 HEMOGLOBIN[facility]CR[facility] Start: 10-22-2022 SERUM CREATININE SERUM CREATININE [facility] Start: 10-02-2022 HEMOGLOBIN/HEMATOCRIT HEMOGLOBIN/HEM [facility] Start: 10-02-2022 SERUM CREATININE SERUM CREATININE [facility] Start: 07-22-2022 Superficial Wound Culture Superficial Wound Culture [facility] Start: 06-15-2022 [facility] Start: 06-13-2022 [facility] Start: 06-12-2022 Administration of prophylactic treatment [facility] Start: 06-12-2022 Referral to plastics sheet finishing press operator [facility] Start: 06-12-2022 Comprehensive metabo lic 1999 panel - Serum or Plasma [facility] Start: 06-12-2022 Erythrocyte sedimentation rate by Photometric method [facility] Start: 06-12-2022 [facility] Start: 06-11-2022 Hospital admission [facility] Start: 06-11-2022 Referral to infectio us diseases physician [facility] Start: 06-11-2022 Referral to ordnance technician [facility] Start: 06-11-2022 [facility] Start: 06-11-2022 Bacteria identified in Blood by Culture [facility] Start: 06-10-2022 Aerobic microbial culture Superficial Wound Culture [facility] Start: 06-10-2022 Superficial Wound Culture Superficial Wound Culture [facility] Start: 05-28-2022 End: 05-28-2022 [facility] Start: 05-25-2022 Renal function 1999 panel - Serum or Plasma [facility] Start: 05-25-2022 [facility] Start: 05-24-2022 Renal function 1999 panel - Serum or Plasma [facility] Start: 05-24-2022 [facility] Start: 05-23-2022 Renal function 1999 panel - Serum or Plasma [facility] Start: 05-23-2022 [facility] Start: 05-22-2022 Administration of prophylactic treatment [facility] Start: 05-22-2022 Referral to Factory Representative [facility] Start: 05-22-2022 Renal function 1999 panel - Serum or Plasma [facility] Start: 05-22-2022 Vancomycin [Mass/vol ume] in Serum or Plasma [facility] Start: 05-22-2022 End: 05-22-2022 [facility] Start: 05-21-2022 Anaerobic microbial culture Anaerobic Culture [facility] Start: 05-21-2022 Renal function 1999 panel - Serum or Plasma [facility] Start: 05-21-2022 End: 05-21-2022 [facility] Start: 05-20-2022 End: 05-20-2022 [facility] Start: 05-20-2022 Bacteria identified in Blood by Culture Blood Culture [facility] Start: 05-20-2022 Detachment at Right 4th Toe, Complete, Open Approach Detachment at Right 4th Toe, Complete, Open Approach [facility] Start: 05-20-2022 Drainage of Right Fo ot, Open Approach Drainage of Right Foot, Open Approach [facility] Start: 05-20-2022 Excision of Right Fo ot Subcutaneous Tissue and Fascia, Open Approach Excision of Right Foot Subcutaneous Tissue and Fascia, Open Approach [facility] Start: 05-20-2022 Insertion of Infusio n Device into Superior Vena Cava, Percutaneous Approach Insertion of Infusion Device into Superior Vena Cava, Percutaneous Approach [facility] Start: 05-20-2022 Superficial Wound Culture Superficial Wound Culture [facility] Start: 05-20-2022 Referral to infectio us diseases physician [facility] Start: 05-20-2022 Referral to ordnance technician [facility] Start: 05-20-2022 Referral to plastics sheet finishing press operator [facility] Start: 05-20-2022 Hospital admission [facility] Start: 05-19-2022 Aerobic microbial culture Superficial Wound Culture [facility] Start: 05-19-2022 Superficial Wound Culture Superficial Wound Culture [facility] Start: 05-08-2022 [facility] Start: 05-07-2022 Aerobic microbial culture Aerobic Culture [facility] Start: 05-07-2022 Anaerobic microbial culture Anaerobic Culture [facility] Start: 05-07-2022 End: 05-07-2022 [facility] Start: 05-06-2022 Referral to general surgeon [facility] Start: 05-06-2022 Referral to ordnance technician [facility] Start: 05-06-2022 Referral to infectio us diseases physician [facility] Start: 05-05-2022 Referral to plastics sheet finishing press operator [facility] Start: 05-05-2022 Hospital admission [facility] Start: 05-05-2022 [facility] Start: 05-05-2022 Bacteria identified in Blood by Culture [facility] Start: 05-05-2022 Blood culture for bacteria, including anaerobic screen Blood Culture [facility] Start: 05-05-2022 Detachment at Right Foot, Partial 5th Ray, Open Approach Detachment at Right Foot, Partial 5th Ray, Open Approach [facility] Start: 03-22-2022 DEPRESSION ASSESSMENT DEPRESSION ASS ESSMENT [facility] Start: 02-20-2022 End: 04-22-2022 CBC W Auto Differential panel - Blood CBC + DIFF Lab Routine Anemia due to stage 3b chronic kidney disease (HCC) Hypothyroidism, unspecified type Expected: 02/20/2022, Expires: 04/22/2022 [facility] Work Phone: Comment on above: Expected: 02/20/2022 , Expires: 04/22/2022 Start: 02-20-2022 End: 04-22-2022 Comprehensive metabolic 2000 panel - Serum or Plasma COMP METABOLIC PANEL Lab Routine Anemia due to stage 3b chronic kidney disease (HCC) Hypothyroidism, unspecified type Expected: 02/20/2022, Expires: 04/22/2022 [facility] Work Phone: Comment on above: Expected: 02/20/2022 , Expires: 04/22/2022 Start: 11-20-2021 Influenza vaccination INFLUENZA (#1) [facility] Start: 10-11-2021 COVID-19 VACCINE (4 - Booster for Pfizer series) COVID-19 VACCINE (4 - Booster for Pfizer series) [facility] Start: 08-06-2021 COVID-19 VACCINE (4 - Booster for Pfizer series) COVID-19 VACCINE (4 - Booster for Pfizer series) [facility] Start: 03-22-2021 DEPRESSION ASSESSMENT DEPRESSION ASS ESSMENT [facility] Start: 08-01-2019 PROSTATE CANCER SCREENING DISCUSSION PROSTATE CANCER SCREENING DISCUSSION [facility] Start: 2014 SHINGRIX VACCINE (1 of 2) SHINGRIX VACCINE (1 of 2) [facility] Start: 2009 COLOGUARD (FIT-DNA) COLOGUARD (FIT-D NA) [facility] Start: 2009 Colonoscopy COLONOSCOPY [facility] Start: 2009 COLORECTAL CANCER SCREENING COLORECTAL CANCER SCREENING [facility] Start: [address] COLONOGRAPHY [facility] Start: 2009 DIABETES SCREEN DIABETES SCREEN [facility] Start: 2009 FECAL OCCULT BLOOD FECAL OCCULT BLOO D [facility] Start: 2009 SIGMOIDOSCOPY SIGMOIDOSCOPY [facility] Start: 08-01-1999 LIPID SCREEN LIPID SCREEN [facility] Start: 08-01-1983 Urine microalbumin profile DTAP,TDAP,TD (1 - Tdap) [facility] Start: 1982 ANNUAL PCP TEAM STOCKING INSPECTOR ALEXANDRA DISEASE VISIT ANNUAL PCP TEAM CHRONIC DISEASE VISIT [facility] Start: 1982 HEPATITIS C SCREENING HEPATITIS C SC REENING [facility] Start: 1982 HIV SCREENING HIV SCREENING [facility] Start: 1976 Adult depression screening assessment DEPRESSION SCREENING [facility] Start: 1964 HEPATITIS B (1 of 3 - 3-dose series) HEPATITIS B (1 of 3 - 3-dose series) [facility] C reactive protein [Mass/volume] in Serum or Plasma [facility] End: 10-08-2022 CBC W Auto Differential panel - Blood CBC + DIFF Lab Routine Stage 3b chronic kidney disease (HCC) Anemia due to stage 3b chronic kidney disease (HCC) Elevated serum immunoglobulin free light chains Every other week for 10 Occurrences starting 10/08/2021 until 10/08/2022 [facility] Work Phone: Comment on above: Every other week for 10 Occurrences starting 10/08/2021 until 10/08/2022 End: 10-08-2022 Comprehensive metabolic 2000 panel - Serum or Plasma COMP METABOLIC PANEL Lab Routine Stage 3b chronic kidney disease (HCC) Anemia due to stage 3b chronic kidney disease (HCC) Elevated serum immunoglobulin free light chains Every other week for 10 Occurrences starting 10/08/2021 until 10/08/2022 [facility] Work Phone: Comment on above: Every other week for 10 Occurrences starting 10/08/2021 until 10/08/[address] [facility] Work Phone: Patient referral [facility] Work Phone: [facility] Immunizations Immunization Date Immunization Notes Care Provider Connie miller 06-11-2021 COVID-19 original vaccine, age 12+ yr, monovalent (RunTitleECH - PURPLE TOP) Conrad Rojas MD Work Phone: [facility] 06-11-2021 COVID-19 vaccine, ag e 12+ yr (PFIZER-BIONTECH - RINCON TOP) Conrad Rojas MD Work Phone: [facility] 07-29-2020 COVID-19 vaccine, ag e 12+ yr (PFIZER-BIONTECH - PURPLE TOP) Conrad Rojas MD Work Phone: [facility] 07-08-2020 COVID-19 vaccine, ag e 12+ yr (PFIZER-BIONTECH - PURPLE TOP) Conrad Rojas MD Work Phone: [facility] Payers Date Payer Category Payer Self-pay [id number] 2022 Medicare [id number] 2021 Medicaid [id number] 2020 Medicaid [employer] [id number] 2020-Present [phone] [address] [place] [address] Medicaid [id number] 2020 Medicaid [id number] 1964 Unknown [id number] 2..[id number] 1964 Unknown [id number] 1964 Unknown [id number] [id number]3 1964 Unknown [id number] 2.16.840.1.874442.3.579.2.593 1964 Unknown [id number] ..840.1.802507.3.579.2.593 1964 Unknown [id number] .[id number]3 1964 Unknown [id number] .840.1.788177.3.579.2.593 1964 Unknown [id number] 2.840.1.593231.3.579.2.593 1964 Unknown [id number] .840.1.196597.3.579.2.593 1964 Unknown [id number] .840.1.621683.3.579.2.1259 1964 Unknown [id number] .840.1.246700.3.579.2.1259 1959 Unknown [id number] .[id number] Medicaid [id number] .840.1.121459.19 Unknown [id number] .840.1.328010.3.579.2.531 Unknown [id number] .840.1.632854.3.579.2.531 Unknown [id number] .840.1.569975.3.579.2.531 Unknown [id number] .840.1.344819.3.579.2.531 Unknown [id number] .840.1.208571.3.579.2.531 Unknown [id number] .840.1.163563.3.579.2.531 Unknown [id number] .840.1.244387.3.579.2.531 Unknown [id number] .840.1.916428.3.579.2.531 Social History Date Type Detail Facility Unknown if ever smoked [employer] Other Sex Assigned At Sex Assigned At Bir th [employer] Other Start: 10-01-2021 End: 12-03-2021 Tobacco smoking status NHIS Never smoked tobacco [facility] Start: 10-01-2021 End: 12-03-2021 Tobacco use and exposure Smokeless tobacco non-user [facility] Start: 10-01-2021 End: 04-16-2022 Alcohol intake Ex-drinker (finding) [facility] Start: 1965 Sex Assigned At Not on file C [facility] Start: 09-22-2021 End: 02-18-2022 Exposure to SARS-CoV-2 (event) Not sure [facility] Start: 1965 Sex Assigned At Male F [facility] History of tobacco use Passive smoker [facility] Start: 05-05-2022 End: 06-12-2022 Tobacco smoking status NHIS Ex-smoker (finding) [facility] Medical Equipment Procedure Code Equipment Code Equipment Origin al Text Equipment Identifier Dates Insertion, catheter, dialysis, peritoneal, laparoscopic Peritoneal dialysis catheter, chronic ()[id number] Start: 05-28-2022 Goals Date Patient Goal Desired Activity /State Functional Status Date Assessment Result Facility 06-15-2022 Functional status Patient at Baseline [facility] Work Phone: 06-11-2022 Functional status Patient at Baseline [facility] Work Phone: 05-25-2022 Functional status Patient at Baseline [facility] Work Phone: 05-20-2022 Functional status Patient at Baseline [facility] Work Phone: 05-08-2022 Functional status Patient at Baseline [facility] Work Phone: 05-05-2022 Functional status Patient at Baseline [facility] Work Phone: Mental Status Date Assessment Result Facility 06-15-2022 Cognitive function Cognitive Sta tus Patient at Baseline [facility] Work Phone: 06-11-2022 Cognitive function Cognitive Sta tus Patient at Baseline [facility] Work Phone: 05-25-2022 Cognitive function Cognitive Sta tus Patient at Baseline [facility] Work Phone: 05-20-2022 Cognitive function Cognitive Sta tus Patient at Baseline [facility] Work Phone: 05-08-2022 Cognitive function Cognitive Sta tus Patient at Baseline [facility] Work Phone: 05-05-2022 Cognitive function Cognitive Sta tus Patient at Baseline [facility] Work Phone: Clinical Notes 06-03-2021 to 03-02-2023 Note Date & Type Note Facility 03-02-2023 Note [facility] Subjective Gopal Yates is a 57 y.o. year old male patient being seen for 6 mo follow up CAD, chronic systolic heart failure, and hypertension. Lipid panel was not drawn since last visit in July 2022. He denies chest pain, SOB, and LE edema. Doing very well from cardiac standpoint. Has home dialysis nightly. Patient Active Problem List Diagnosis Edema of lower extremity Hypertensive disorder Left ventricular systolic dysfunction Mitral valve regurgitation Pericardial effusion Coronary artery disease involving blackfeet coronary artery of blackfeet heart without angina pectoris CKD (chronic kidney disease) Anemia Anemia due to stage 3b chronic kidney disease (CMS/HCC) Abscess of right foot Family History Problem Relation Name Age of Onset Coronary artery disease Father Coronary artery disease Paternal Grandmother Social History Tobacco Use Smoking status: Former Types: Cigarettes Smokeless tobacco: Never Substance Use Topics Alcohol use: Not Currently Drug use: Never HPI Gopal is seen in follow-up. He is a 57-year-old man with prior history of coronary artery disease status post intervention in 2019 to the circumflex. At that time he had calcified 70% LAD stenosis with an IFR of 0.8 and mild to moderate RCA stenosis. He has chronic systolic heart failure.He has history of uncontrolled systemic hypertension in the past. He has chronic kidney disease and in May 2022 he was started on peritoneal dialysis. In May 2022 he was admitted to [facility] for osteomyelitis and had toe amputations. Today he reports he has been doing well. He feels much better after starting dialysis. he denies chest pain, shortness of breath, palpitations, dizziness, syncope and leg edema. he has good exercise tolerance. There is no claudication. Review of Systems Cardiovascular: Negative for chest pain, dyspnea on exertion, irregular heartbeat, leg swelling, orthopnea, palpitations and syncope. Respiratory: Negative for cough and shortness of breath. Musculoskeletal: Negative for arthritis, falls and neck pain. Gastrointestinal: Negative for diarrhea and dysphagia. Neurological: Negative for light-headedness and loss of balance. Objective Visit Vitals BP 116/74 (BP Location: Left arm, Patient Position: Sitting) Pulse 64 Ht 1.93 m (6' 4 ) Wt 87.5 kg (193 lb) SpO2 98% BMI 23.49 kg/m??? Smoking Status Former BSA 2.17 m??? Physical Exam Constitutional: Appearance: He is well-developed. He is not ill-appearing. HENT: Head: Normocephalic and atraumatic. Nose: Nose normal. Eyes: General: No scleral icterus. Pupils: Pupils are equal, round, and reactive to light. Neck: Thyroid: No thyromegaly. Vascular: No JVD. Cardiovascular: Rate and Rhythm: Normal rate and regular rhythm. Pulses: Radial pulses are 2+ on the right side and 2+ on the left side. Heart sounds: Normal heart sounds. No murmur heard. No friction rub. No gallop. Pulmonary: Effort: Pulmonary effort is normal. No respiratory distress. Breath sounds: Normal breath sounds. No wheezing or rales. Chest: Chest wall: No tenderness. Abdominal: General: Bowel sounds are normal. There is no distension. Palpations: Abdomen is soft. Tenderness: There is no abdominal tenderness. Comments: PD catheter noted Musculoskeletal: General: No swelling. Cervical back: Neck supple. Skin: General: Skin is warm and dry. Neurological: General: No focal deficit present. Mental Status: He is alert and oriented to person, place, and time. Psychiatric: Mood and Affect: Mood normal. Behavior: Behavior is cooperative. Judgment: Judgment normal. Allergies Allergies Allergen Reactions Sulfa (Sulfonamide Antibiotics) Medications Current Outpatient Medications: aspirin 81 mg EC tablet, Take 1 tablet every day by oral route., Disp: , Rfl: bumetanide (Bumex) 2 mg tablet, Take 1 tablet (2 mg) by mouth in the morning and at bedtime., Disp: 180 tablet, Rfl: 3 carvedilol (Coreg) 25 mg tablet, TAKE 1 AND 1/2 TABLETS BY MOUTH TWICE A DAY, Disp: 270 tablet, Rfl: 3 cyproheptadine (Periactin) 4 mg tablet, Take 1 tablet by mouth if needed., Disp: , Rfl: ezetimibe (Zetia) 10 mg tablet, Take 1 tablet (10 mg) by mouth once daily as directed., Disp: 90 tablet, Rfl: 3 famotidine (Pepcid) 20 mg tablet, Take 1 tablet by mouth at bedtime., Disp: , Rfl: hydrALAZINE (Apresoline) 50 mg tablet, Take 1 tablet (50 mg) by mouth in the morning, afternoon, and at bedtime., Disp: 270 tablet, Rfl: 3 insulin aspart (NovoLOG) 100 unit/mL (3 mL) pen, INJECT PER SCALEIF SUGAR IS <140 = 4U, 140-200 = 8U, OVER 200 12U (35 DAY SUPPLY), Disp: , Rfl: insulin glargine (Lantus) 100 unit/mL (3 mL) pen, INJECT 16 UNITS SUB Q DAILY (83 DAY SUPPLY), Disp: , Rfl: isosorbide dinitrate (Isordil) 10 mg tablet, Take 1 tablet (10 mg) by mouth in the morning, at noon, and at be (more content not included)... [facility] 07-22-2022 Note Patient here for 6 m o follow up LVSD and CAD. Had echo 07/09/2022 and labs in Apr. Does home dialysis every night, which started 3 weeks ago. Denies chest pain, SOB, and palpitations. Had diabetic ulcer on his toes, which were amputated in Apr 2022. Review of Systems All other systems reviewed and are negative. [facility] 07-22-2022 Note Cardiology Clinic No te Subjective Gopal Yates is a 56 y.o. year old male patient with chronic systolic heart failure, hypertension, and chronic kidney disease seen in follow-up. He was hospitalized in May at [facility] for osteomyelitis where he had 2 of his toes on left foot amputated. He was started on peritoneal dialysis 3 weeks ago and feels remarkably improved since starting dialysis. He denies chest pain shortness of breath or palpitations. Patient Active Problem List Diagnosis Edema of lower extremity Hypertensive disorder Left ventricular systolic dysfunction Mitral valve regurgitation Pericardial effusion Coronary artery disease involving blackfeet coronary artery of blackfeet heart without angina pectoris CKD (chronic kidney disease) Anemia Anemia due to stage 3b chronic kidney disease (CMS/HCC) Family History Problem Relation Name Age of Onset Coronary artery disease Father Coronary artery disease Paternal Grandmother Social History Tobacco Use Smoking status: Former Types: Cigarettes Smokeless tobacco: Never Substance Use Topics Alcohol use: Not Currently Drug use: Never HPI Visit of 09/30/2018: Dr. Sosa I had seen him on 09/14/2018 when he was admitted at the [facility]. He is a 53-year-old man with long history of hypertension that is apparently noncontrolled. He presented to the [facility] with feeling foggy in the head and having elevated blood pressure [230/120]. At that time he denied chest pain and shortness of breath and had no palpitations. His initial evaluation showed high blood pressure him a CT brain was not revealing. NT-proBNP was very elevated and his troponin was up to 0.089 and then was trending down. His renal function was normal. His EKG showed sinus rhythm with nonspecific ST changes. His echocardiogram 09/14/2018 showed mildly reduced LV systolic function with wall motion abnormality in the inferior/inferolateral wall. D-dimer was elevated. Duplex ultrasound of the renal arteries showed mildly elevated velocities. I added nifedipine and this has contributed to blood pressure control. Today he denies chest pain and shortness of breath. He has mild lower extremity swelling. He has no claudication. He previously had presented to the emergency room at the [facility] with hypertensive urgency. Update 10/17/2018: He is seen in follow-up. After last visit I checked a stress test and this showed no evidence of ischemia, however there was moderately reduced left ventricular systolic function with an ejection fraction of 34 percent with apical inferior and inferolateral fixed defect. He has no chest pain, no dyspnea, mild leg swelling. No palpitations. Update 05/25/2019: He is seen in follow-up. Since last visit with me clonidine was added and metoprolol was switched to carvedilol. He did not tolerate higher dose of nifedipine and is currently taking 30 mg ER twice daily. He did not do well with hydralazine. He was supposed to get a BMP but this was not done. Today he reports no chest pain. No significant shortness of breath. He has some lower extremity edema. His blood pressure has been not controlled especially the systolic numbers. TSH 04/29/2019: Normal Visit of 08/09/2019: He is seen in follow up via telemedicine. He has been doing well. He has no angina and no heart failure symptoms. He says his leg swelling has improved a lot. No palpitations. At last visit his BP was elevated and I increased carvedilol to 25 mg bid. His blood pressure has been well controlled. I also asked for a BMP but he did not have it due to the covid pandemic since he does not want to risk infection. Visit of 12/13/2019: He is seen in follow up via telemedicine. He has been doing very well. No chest pain. His blood pressure has been controlled. systolic BP 120-130. He took ciprofloxacin and that caused him leg swelling but it resolved after stopping it. NYHA class II. Visit of 02/14/2020: He is seen in follow-up. Recently he was hospitalized with decompensated systolic heart failure and non-ST segment elevation myocardial infarction. He was managed with diuresis. Cardiac catheterization was performed and showed moderately severe stenosis in the LAD and occluded left circumflex/obtuse marginal branch to which he underwent percutaneous coronary intervention and drug-eluting stenting. He continues to be managed medically in hospital. His ejection fraction was reduced at 30%. His renal function was stable on discharge with a creatinine of 2.5. He was prescribed a LifeVest on discharge which he continues to be wearing. Currently he says he feels good. He has no chest pain. No significant shortness of breath. His leg edema has improved significantly. He has no palpitations. He has no issues with weight LifeVest device. Visit of 03/25/2020: He is seen in follow-up. He denies chest michelle (more content not included)... [facility] 06-11-2022 History and physi dandre note Note Date/Time June 11, 2022 6:58pm [facility] [address] [place] [address] Hospitalist H&P Signed Patient: Gopal Yates Jr MR#: [id number] : 1965 Acct:[id number] Age/Sex: 56 / M Adm Date: 3 Loc: ER Room: Type: [facility] ER Attending Dr: Copies to: MD Gopal Mahoney MD Obaydah M Daromar, MD~ HPI DATE OF EXAMINATION: 06/11/22 CHIEF COMPLAINT: Fever HISTORY OF PRESENT ILLNESS: Patient is a 56-year-old male with multiple comorbidities as listed below presented to the ER from home due to fevers over the past week. Patient was discharged recently from our facility. Podiatry was consulted at that time and on 05/21/2022 patient underwent amputation of right fourth digit, I&D of deep abscess of right third intermetatarsal space and reconstruction of right lateralfifth metatarsal surgical wound.? Plan will be for patient to be discharged homewith woundvac on right surgical wound along with PICC line for continued IV antibiotic (Invanz) treatment per ID recommendations. Patient has been receivingIV AB with his assistance. Has been following with plastics sheet finishing press operator Dr. Griggs, took culture few days ago which seems negative to date. Also patient has had PD catheter inserted by General surgery on 05/28/22 with no immediate complications. Patient reports fevers at home in 100s-101 F. Denies any nausea vomiting or diarrhea or constipation or abdominal pain with shortness of breath or chest pain. He does report fatigue and generalized weakness relating it to his anemia. In the ER patient was afebrile, no leukocytosis, symptomatic anemia, ordered 1 unit or pRBC in ER. kidney function has worsen. Decision was made to admit for further evaluation and management. Review of Systems Review of Systems Review of systems: 10 systems are reviewed and are negative except as mentioned elsewhere in the documentation PMFSH Vaccinated for COVID-19?: Yes Medical History Anemia CHF (congestive heart failure) CKD (chronic kidney disease) Diabetes type 2, controlled Hypertension Wound of foot rt foot Surgical History History of heart artery stent 2019 Hx of cardiac cath 2020 Family History Father Heart failure Heart attack Diabetes Mother Breast cancer Social History Smoking Status: Former smoker Tobacco Type: cigarettes Substance Use Type: None Meds Medications and Allergies Allergies Sulfa (Sulfonamide Antibiotics) Allergy (Verified 06/11/22 13:07) Hives Home Medications aspirin 81 mg tablet,delayed release 81 mg PO DAILY 05/05/22 [History Confirmed 06/11/22] bumetanide 2 mg tablet 2 mg PO DAILY 05/05/22 [History Confirmed 06/11/22] carvedilol 25 mg tablet 25 mg PO BID 05/05/22 [History Confirmed 06/11/22] cholecalciferol (vitamin D3) 50 mcg (2,000 unit) capsule (Vitamin D3) 50 mcg PO DAILY 05/05/22 [History Confirmed 06/11/22] ezetimibe 10 mg tablet 10 mg PO DAILY 05/05/22 [History Confirmed 06/11/22] hydralazine 50 mg tablet 50 mg PO TID 05/05/22 [History Confirmed 06/11/22] insulin aspart U-100 100 unit/mL (3 mL) subcutaneous pen See Rx Instructions .Route .COMPLEX 05/05/22 [History Confirmed 06/11/22] insulin glargine 100 unit/mL subcutaneous solution (Lantus U-100 Insulin) 16 unit subcut QAM 05/05/22 [History Confirmed 06/11/22] isosorbide dinitrate 10 mg tablet 10 mg PO TID 05/05/22 [History Confirmed 06/11/22] levothyroxine 100 mcg tablet 100 mcg PO DAILY 05/05/22 [History Confirmed 06/11/22] multivitamin 1 tab PO DAILY 05/05/22 [History Confirmed 06/11/22] nifedipine 30 mg tablet,extended release 24 hr 30 mg PO BID 05/05/22 [History Confirmed 06/11/22] omeprazole 40 mg capsule,delayed release 40 mg PO BID 05/05/22 [History Confirmed 06/11/22] sodium bicarbonate 650 mg tablet 1,300 mg PO BID 30 days #120 tabs 05/08/22 [Rx Confirmed 06/11/22] cyproheptadine 4 mg tablet 4 mg PO BID 05/20/22 [History Confirmed 06/11/22] liothyronine 5 mcg tablet 10 mcg PO DAILY 05/20/22 [History Confirmed 06/11/22] ertapenem 1 gram solution for injection (Invanz) 0.5 g IV DAILY 40 days #40 ea 05/22/22 [Rx Confirmed 06/11/22] pravastatin 40 mg tablet 40 mg PO DAILY 06/11/22 [History Confirmed 06/11/22] Exam Physical Exam Vital Signs: Temp Pulse Resp BP Pulse Ox O2 Del Method 99 F 66 20 132/64 92 L Room Air 06/11/22 18:51 06/11/22 18:51 06/11/22 18:51 06/11/22 18:51 06/11/22 18:51 06/11/22 18:33 Narrative: Const General: Tired appearing, in no acute distress HEENT Normal oropharyngeal mucosa without any ulcers or exudates Eyes: Conjunctiva normal Pulmonary Auscultation: clear to auscultation , no crackles, no wheezes Cardiovascular Rate: normal rate Rhythm: regular rhythm Heart Sounds: S1 normal, S2 normal and no murmurs GI Inspection: non-distended Palpation: soft, not firm and nontender. No rigidity or rebound. PD catheter in place Deferred Neuro General: alert, awake and oriented x3. No obvious new focal deficit Musculoskeletal: normal range of motion Extrem General: no cyanosis, R pedal edema PICC line L arm - no erythema or discharge R foot wrapped - will defer to wound care team Skin: no significant ulcers, no rash noted Psych Appearance: appropriate affect. Grossly normal Results Lab Results Labs: Laboratory Last Values Corrected WBC 10.2 X10E3/uL (4.1-10.5) 06/11/22 16:06 Uncorrected WBC Count 10.2 x10E3/uL (4.1-10.5) 06/11/22 16:06 RBC 2.86 X10E6/uL (3.90-5.60) L 06/11/22 16:06 Hgb 7.7 g/dL (13.0-17.0) L 06/11/22 16:06 Hct 23.3 % (38.8-50.0) L 06/11/22 16:06 MCV 81.5 fl (83.5-101) L 06/11/22 16:06 MCH 27.1 pg (27.5-35.2) L 06/11/22 16:06 MCHC 33.2 g/dL (32.5-35.6) 06/11/22 16:06 RDW 16.4 % (12.0-14.8) H 06/11/22 16:06 Plt Count 244 x10E3/uL (150-450) 06/11/22 16:06 MPV 8.8 fl (6.6-10.1) 06/11/22 16:06 Neut % (Auto) 87.1 % (.) 06/11/22 16:06 Lymph % (Auto) 3.2 % (.) 06/11/22 16:06 Edmunds % (Auto) 7.2 % (.) 06/11/22 16:06 Eos % (Auto) 2.0 % (.) 06/11/22 16:06 Baso % (Auto) 0.5 % (.) 06/11/22 16:06 Nucleat RBC Rel Count 0.0 /100 WBC (0-0.5) 06/11/22 16:06 Neut # (Auto) 8.9 x10E3/uL (1.8-7.7) H 06/11/22 16:06 Lymph # (Auto) 0.3 x10E3/uL (1.00-4.8) L 06/11/22 16:06 Edmunds # (Auto) 0.7 x10E3/uL (0.0-0.8) 06/11/22 16:06 Eos # (Auto) 0.2 x10E3/uL (0.0-0.45) 06/11/22 16:06 Baso # (Auto) 0.0 x10E3/uL (0.0-0.2) 06/11/22 16:06 Monocyte Dist Width 17.28 % (0.00-20.00) 06/11/22 16:06 PHA Creatinine Clear 18.36 06/11/22 16:06 Sodium 137 mmol/L (136-145) 06/11/22 16:06 Potassium 4.4 mmol/L (3.5-5.1) 06/11/22 16:06 Chloride 106 mmol/L (98-107) 06/11/22 16:06 Carbon Dioxide 18.3 mmol/L (21.0-31.0) L 06/11/22 16:06 Anion Gap 17.1 mEq/L (6.0-15.0) H 06/11/22 16:06 BUN 111 mg/dL (7-25) H 06/11/22 16:06 Creatinine 5.45 mg/dL (0.70-1.30) H 06/11/22 16:06 Est GFR (CKD-EPI) 11.475 06/11/22 16:06 Glucose 62 mg/dL (74-109) L 06/11/22 16:06 POC Glucose 83 mg/dl 06/11/22 17:16 POC Glucose Comment Glu2: cleaned meter 06/11/22 17:16 Lactic Acid 1.1 mmol/L (0.5-2.2) 06/11/22 16:06 Calcium 8.4 mg/dL (8.6-10.3) L 06/11/22 16:06 Total Bilirubin 0.6 mg/dl (0.3-1.0) 06/11/22 16:06 AST 31 U/L (13-39) 06/11/22 16:06 ALT 18 U/L (7-52) 06/11/22 16:06 Alkaline Phosphatase 200 U/L (34-104) H 06/11/22 16:06 Total Protein 6.9 gm/dL (6.4-8.9) 06/11/22 16:06 Albumin 2.8 gm/dL (3.5-5.7) L 06/11/22 16:06 Globulin 4.1 gm/dL 06/11/22 16:06 Albumin/Globulin Ratio 0.7 06/11/22 16:06 Urine Color Yellow (Yellow) 06/11/22 16:28 Urine Appearance Clear (Clear) 06/11/22 16:28 Urine pH 5.5 (5.0-9.0) 06/11/22 16:28 Ur Specific [place] 1.014 (1.001-1.030) 06/11/22 16:28 Urine Protein 300 mg/dL (Negative) H 06/11/22 16:28 Urine Glucose (UA) Normal mg/dL (Normal) 06/11/22 16:28 Urine Ketones Negative (Negative) 06/11/22 16:28 Urine Occult Blood Negative (Negative) 06/11/22 16:28 Urine Nitrite Negative (Negative) 06/11/22 16:28 Urine Bilirubin Negative (Negative) 06/11/22 16:28 Urine Urobilinogen Normal mg/dL (Normal) 06/11/22 16:28 Ur Leukocyte Esterase Negative (Negative) 06/11/22 16:28 Urine RBC 3-4 /HPF (0-4) 06/11/22 16:28 Urine WBC 3-4 /HPF (0-4) 06/11/22 16:28 Ur Squamous Epith Cells 1-2 /HPF (0-2) 06/11/22 16:28 Urine Bacteria None seen (None Seen) 06/11/22 16:28 Hyaline Casts 0-8 /LPF (0-8) 06/11/22 16:28 SARS-CoV-2 Rap RNA(RT-PCR) Negative (Negative) 06/11/22 16:05 Blood Type A Positive 06/11/22 16:44 Antibody Screen Negative 06/11/22 16:44 Crossmatch (AHG) See Detail 06/11/22 16:44 Microbiology Results Micro: Microbiology - Results from entire visit 06/11/22 16:05 Nasopharyngeal SARS-CoV-2, Influenza & RSV (PCR) - Final A&P - Hospitalist Assessment/Plan (1) Anemia: (2) Fever: (3) Osteomyelitis: (4) CKD (chronic kidney disease) stage 5, GFR less than 15 ml/min: (5) MARTHA (acute kidney injury): Plan Fever with unclear etiology Suspected PICC line related infection Recent R foot osteomyelitis -Blood cultures collected. will follow up -Start IV vancomycin empirically for now -Continue Ertapenem -ID consult -Will consider Podiatry if needed -Wound care consult Progressing CKD -Worsening BUN/Cr -S/p PD catheter inserted 05/28/22 -Nephrology consult Symptomatic anemia -S/p blood transfusion in ER -Likely anemia of renal disease -Continue to monitor H&H Home medications restarted as appropriate Diet: Renal diet not on dialysis DVT ppx: Heparin GI ppx: Omeprazole Code status: Full Disposition: Inpatient status Discussed with patient and at bedside. All questions answered. In agreementwith the above plan -Based on my assessment and evaluation at this time, our working diagnosis as mentioned above. I anticipate more than two midnights hospital stay to address the underlying acute illness. Caleb Foster MD Internal Medicine Hospitalist Attending Physician Documented By: Caleb Farrar MD 06/11/22 18 56 Signed By: <Electronically signed by Caleb Farrar MD> 06/11/221940 [facility] Work Phone: [phone]) 375-645703-20-2023 Miscellaneous Notes* Telephone Encounter - Liset Mosley Sec - 06/08/2022 11:08 AM EDT All appointemnts cxed * Telephone Encounter - Krissy Mirza RN - 06/08/2022 11:03 AM EDT YENY/PSS: Received call from pt's stating pt will be getting labs and injections at dialysis from now on so they will no longer need to be seen at our office and all appts can be cancelled. Krissy Mirza RN documented in this encounter[facility] Progress note Author Yvonne Barboza [facility] May 25, 2022 11:28am Note Date/Time May 25, 2022 10:3 6am [facility] [address] [place] [address] Nephrology Progress Note Signed Patient: Gopal Yates Jr MR#: [id number] : 1965 Acct:[id number] Age/Sex: 56 / M Adm Date: 3 Loc: Room: [address] [place] [address] Type: ADM IN Attending Dr: Scotty Kahn DO Copies to: ~ Date of Service: 05/25/2022 Subjective Subjective Narrative: This is 56-year-old male patient with a past medical history of chronic kidney disease stage V from diabetic and hypertensive nephropathy follows with me in renal office. Coronary artery disease with history of myocardial infarction, heart failure with reduced ejection fraction, hyperlipidemia, insulin-dependent diabetes mellitus and hypothyroidism. Patient was referred to the hospital by his podiatric physician for worsening right lateral foot ulcer. Patient had recent partial fifth ray amputation of his right foot. Patient was discharged to finish antibiotics. Foot MRI from yesterday showed edema in the head of the second metatarsal as well as the proximal and middle phalanx of the fourth digitsuspicious for osteomyelitis. Edema is also noted at the fourth transmetatarsaljunction suspicious for osteomyelitis. There is also marrow edema affecting thehead of the third metatarsal as well as the proximal phalanx of the third digit suspicious for osteomyelitis. There is evidence of ulceration along the lateralsoft tissues of the right foot with subcutaneous emphysema. There is a fluid collection along the interspace between the heads of the third and the fourth metatarsal suspicious for abscess formation. There is diffuse soft tissue swelling consistent with cellulitis. Patient is scheduled for OR today at 5:30 for possible more amputation with I&D. Currently on vancomycin IV. Renal team is consulted for CKD management. Last office visit with me was March 2022 when he was referred to vascular surgeon for PD catheter placement which was supposed to be done next week. Patient has been following with hematology clinic here in [facility] for CAROL injection. Patient missed her last appointment. Hemoglobin this morning 7.7 g deciliter. Kidney function remains at baseline with today serum creatinine 5.2 mmol/L and GFR 11 mm/min. BUN 72. Potassium 4.0. Serum bicarb 20 Interval history: Patient was seen and examined in his room. He is feeling better denies any chest pain palpitation cough nausea Moiduddin shortness of breath. He reported that he likely will be discharged home today. He is scheduled to see Dr. Cooper for PD catheter. 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: Awake,Alert, 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 Musculoskeletal: No joint swelling or limitation of movement Psychiatric: Cooperative, normal mood and affect Objective Intake and Output I&O: Intake & Output 05/22/22 05/23/22 05/24/22 05/25/22 23:59 23:59 23:59 23:59 Intake Total 1840 / 1840 2460 / 2460 1650 / 1650 340 / 340 Output Total 800 / 800 2470 / 2470 1225 / 1225 550 / 550 Balance 1040 / 1040 -10 / -10 425 / 425 -210 / -210 Weight 84.6 kg 85.2 kg 86 kg 87 kg Meds and Allergies Meds: Active Medications Acetaminophen (Acetaminophen 325 Mg Tablet) 650 mg PO Q6H PRN PRN Reason: Pain Scale 1 - 3 or fever Stop: 05/20/23 13:39 Last Admin: 05/22/22 06:05 Dose: 650 mg Bumetanide (Bumetanide 2 Mg Tablet) 2 mg PO DAILY [facility] Stop: 05/21/23 08:59 Last Admin: 05/25/22 08:30 Dose: 2 mg Carvedilol (Carvedilol 12.5 Mg Tablet) 37.5 mg PO BID.WITH.MEALS [facility] Stop: 05/20/23 16:59 Last Admin: 05/25/22 08:30 Dose: 37.5 mg Cyproheptadine HCl (Cyproheptadine 4 Mg Tablet) 4 mg PO BID [facility] Stop: 05/23/23 20:59 Last Admin: 05/25/22 08:30 Dose: 4 mg Ezetimibe (Ezetimibe 10 Mg Tablet) 10 mg PO DAILY [facility] Stop: 05/21/23 08:59 Last Admin: 05/25/22 08:30 Dose: 10 mg Hydralazine HCl (Hydralazine 50 Mg Tablet) 50 mg PO TID [facility] Stop: 05/20/23 13:59 Last Admin: 05/25/22 08:30 Dose: 50 mg Piperacillin Sod/Tazobactam Sod (Zosyn 2.25gm) 2.25 gm in 100 mls @ 200 mls/hr IV Q6H [facility] Last Admin: 05/25/22 05:05 Dose: 200 mls/hr Insulin Glargine (Insulin Glargine 300 Units/3 Ml Insuln.Pen) 16 units SUBCUT QAM [facility] Stop: 05/21/23 08:59 Last Admin: 05/25/22 08:31 Dose: 16 units Isosorbide Dinitrate (Isosorbide Dinitrate 10 Mg Tablet) 10 mg PO TID [facility] Stop: 05/20/23 13:59 Last Admin: 05/25/22 08:30 Dose: 10 mg Levothyroxine Sodium (Levothyroxine 100 Mcg Tablet) 100 mcg PO DAILY@0630 [facility] Stop: 05/21/23 06:29 Last Admin: 05/25/22 05:34 Dose: Not Given Liothyronine Sodium (Liothyronine 5 Mcg Tablet) 10 mcg PO DAILY [facility] Stop: 05/21/23 08:59 Last Admin: 05/25/22 08:31 Dose: 10 mcg Multivitamins (Multivitamin 1 Tab Tablet) 1 tab PO DAILY [facility] Stop: 05/21/23 08:59 Last Admin: 05/25/22 08:31 Dose: 1 tab Nifedipine (Nifedipine Er.24hr 30 Mg Tab.Er.24) 30 mg PO BID [facility] Stop: 05/20/23 20:59 Last Admin: 05/25/22 08:30 Dose: 30 mg Ondansetron HCl (Ondansetron 4 Mg/2 Ml Vial) 4 mg IV-PUSH Q8H PRN PRN Reason: Nausea And Vomiting Stop: 05/20/23 13:39 Oxycodone HCl (Oxycodone Ir 5 Mg Tablet) 5 mg PO Q6H PRN PRN Reason: Pain Scale 4 - 7 Pantoprazole Sodium (Pantoprazole 40 Mg Tablet.Dr) 40 mg PO BID [facility] Stop: 05/20/23 20:59 Last Admin: 05/25/22 08:31 Dose: 40 mg Potassium Chloride (Potassium Chloride Er 20 Meq Tab.Er.Prt) 40 meq PO DAILY PRN PRN Reason: Hypokalemia Stop: 05/20/23 13:39 Sodium Bicarbonate (Sodium Bicarbonate 650 Mg Tablet) 1,300 mg PO BID [facility] Stop: 05/20/23 20:59 Last Admin: 05/25/22 08:30 Dose: 1,300 mg Sodium Chloride (Sodium Chloride 0.9 % 10 Ml Syringe) 0 ml IV-PUSH PRN PRN PRN Reason: Flush Stop: 05/20/23 10:09 Last Admin: 05/25/22 05:06 Dose: 10 ml Vancomycin HCl (Vancomycin - Pharmacy Dosing 1 Each Miscell) 1 each IV ONCE PRN; Protocol PRN Reason: ZZ.Pharmacy Consult Vitamin D (Cholecalciferol 25 Mcg (1,000 Units) Tablet) 50 mcg PO DAILY [facility] Stop: 05/21/23 08:59 Last Admin: 05/25/22 08:30 Dose: 50 mcg Allergies Sulfa (Sulfonamide Antibiotics) Allergy (Verified 05/20/22 10:10) Hives Results Labs 05/25/22 05:10 05/25/22 05:10 Labs: 05/25/22 05:10 BUN 68 H Creatinine 4.55 H Phosphorus 4.1 Albumin 1.7 L Radiology Impressions Impressions - last 24 hours: Any impression(s) listed above is documentation that was entered by the reading physician into a diagnostic report(s) for Gopal Yates Jr. I have reviewed the report(s) and am incorporating any findings in the treatment plan of this patient where applicable. A&P - Nephrology Assessment/Plan (1) CKD (chronic kidney disease) stage 5, GFR less than 15 ml/min: Plan: Patient has advanced CKD from diabetic nephropathy. Patient follows with me in the renal office. Last visit was March 2022 when he was referred to general surgery for PD catheter placement which supposed to be done next week. Kidney function remains at baseline. There is no urgent need to start hemodialysis. I will continue to monitor renal function panel while he is on antibiotics. Please keep vancomycin level between 15 and 20 to avoid tubular injury. Avoid NSAIDs for pain control. Avoid IV contrast. Continue oral sodium bicarb. Check renal function panel in the morning if he remains inpatient (2) Diabetes mellitus with diabetic neuropathy: Plan: Patient has insulin-dependent diabetes mellitus. Currently he is on insulin glargine. Continue insulin with the target goal of blood sugars 100 to 150 g/dL. (3) Hypertensive kidney disease with chronic kidney disease stage V: Plan: Blood pressure and volume are well controlled. Patient is on Bumex, Coreg, hydralazine, nifedipine. I will continue to monitor blood pressure and adjust medications as needed (4) Anemia of renal disease: Plan: Patient has anemia from CKD. Patient has been following with hematology clinic here in [facility] for CAROL injection . Patient missed the last appointment. Patient received 1 unit of RBC May 21. Patient also was given 1 dose of Eidhyy15,000 units May 21 . No need for RBC transfusion. Continue to monitor H&H (5) Osteomyelitis of right foot: Plan: Right foot MRI findings as as in HPI. Patient currently covered by vancomycin and Zosyn IV. Status post amputation of the right fourth toe with I&D of right foot abscess with wound VAC placement during this admission. Podiatry service is following Documented By: Yvonne Barboza MD 05/25/22 1035 Signed By: <Electronically signed by Yvonne Barboza MD> 05/25/[address] [facility] Work Phone: 1(198) 326-199403-06-2023 Progress note Author Ashutosh Thomas [facility] May 25, 2022 11:21am Note Date/Time May 25, 2022 11:2 2am [facility] [address] [place] [address] Infect. Disease Progress Note Signed Patient: Gopal Yates Jr MR#: [id number] : 1965 Acct:[id number] Age/Sex: 56 / M Adm Date: 3 Loc: Room: [address] [place] [address] Type: ADM IN Attending Dr: Scotty Kahn DO Copies to: ~ Date of Service: 05/25/2022 Subjective Interval history: Patient is doing well. Having his right foot dressing change bugs in the room. No problems with IV antibiotics to date. Planning to go home today. Exam Physical Exam Vital Signs: Temp Pulse Resp BP Pulse Ox O2 Del Method 98.0 F 62 16 153/77 H 94 L Room Air 05/25/22 08:00 05/25/22 08:00 05/25/22 08:00 05/25/22 08:00 05/25/22 08:00 05/25/22 08:00 Const General: cooperative, healthy appearing, comfortable and no acute distress HEENT Head: normal to inspection, normocephalic and atraumatic Ears: hearing grossly normal bilaterally Eyes Visual Holden: normal visual holden by confrontation Conjunctivae: conjunctivae normal Sclera: sclerae normal EOM: EOM intact bilaterally Neck Neck: normal visual inspection, full ROM and no lymphadenopathy Chest Chest palpation & inspection: normal inspection of the chest Resp Effort & Inspection: normal respiratory effort and able to speak in complete sentences Auscultation: clear to auscultation bilaterally Cardio Rate: regular rate Rhythm: regular rhythm Heart Sounds: S1 normal and S2 normal GI Inspection: normal to inspection, no edema and non-distended Palpation: soft Skin General: no rashes or lesions noted Neuro General: patient alert, patient awake, patient oriented x3 and moves all extremities Extrem General: no clubbing, cyanosis or edema and no calf tenderness Psych Appearance: grossly normal Mental Status: mental status grossly normal Objective Labs CBC/BMP: CBC, BMP 05/25/22 05/25/22 05:10 05:10 Corrected WBC 7.7 Uncorrected WBC Count 7.7 RBC 2.90 L Hgb 7.9 L Hct 23.7 L Plt Count 191 Sodium 134 L Potassium 4.2 Chloride 104 Carbon Dioxide 21.0 L Anion Gap 13.2 BUN 68 H Creatinine 4.55 H Calcium 7.8 L Labs: 05/25/22 05:10 BUN 68 H Creatinine 4.55 H Microbiology Microbiology: Microbiology - Results from entire visit 05/21/22 18:37 Foot,Right - Ulcer Aerobic Culture - Final No Growth 2 Days 05/21/22 18:37 Foot,Right - Ulcer Anaerobic Culture - Preliminary Bacteroides fragilis 05/21/22 18:37 Foot,Right - Ulcer Gram Stain - Final 05/20/22 11:12 Blood - Left Antecubital Blood Culture - Preliminary No Growth 4 Days 05/20/22 11:00 Blood - Left Antecubital Blood Culture - Preliminary No Growth 4 Days 05/20/22 11:28 Toe,Right Fifth - Abscess Superficial Wound Culture - Final Light Normal Skin Efren 2 Days Allergies and Medications Allergies and Active Meds Allergies Sulfa (Sulfonamide Antibiotics) Allergy (Verified 05/20/22 10:10) Hives Active Medications Acetaminophen (Acetaminophen 325 Mg Tablet) 650 mg PO Q6H PRN PRN Reason: Pain Scale 1 - 3 or fever Stop: 05/20/23 13:39 Last Admin: 05/22/22 06:05 Dose: 650 mg Bumetanide (Bumetanide 2 Mg Tablet) 2 mg PO DAILY [facility] Stop: 05/21/23 08:59 Last Admin: 05/25/22 08:30 Dose: 2 mg Carvedilol (Carvedilol 12.5 Mg Tablet) 37.5 mg PO BID.WITH.MEALS [facility] Stop: 05/20/23 16:59 Last Admin: 05/25/22 08:30 Dose: 37.5 mg Cyproheptadine HCl (Cyproheptadine 4 Mg Tablet) 4 mg PO BID [facility] Stop: 05/23/23 20:59 Last Admin: 05/25/22 08:30 Dose: 4 mg Ezetimibe (Ezetimibe 10 Mg Tablet) 10 mg PO DAILY [facility] Stop: 05/21/23 08:59 Last Admin: 05/25/22 08:30 Dose: 10 mg Hydralazine HCl (Hydralazine 50 Mg Tablet) 50 mg PO TID [facility] Stop: 05/20/23 13:59 Last Admin: 05/25/22 08:30 Dose: 50 mg Piperacillin Sod/Tazobactam Sod (Zosyn 2.25gm) 2.25 gm in 100 mls @ 200 mls/hr IV Q6H [facility] Last Admin: 05/25/22 11:06 Dose: 200 mls/hr Insulin Glargine (Insulin Glargine 300 Units/3 Ml Insuln.Pen) 16 units SUBCUT QAM [facility] Stop: 05/21/23 08:59 Last Admin: 05/25/22 08:31 Dose: 16 units Isosorbide Dinitrate (Isosorbide Dinitrate 10 Mg Tablet) 10 mg PO TID [facility] Stop: 05/20/23 13:59 Last Admin: 05/25/22 08:30 Dose: 10 mg Levothyroxine Sodium (Levothyroxine 100 Mcg Tablet) 100 mcg PO DAILY@0630 [facility] Stop: 05/21/23 06:29 Last Admin: 05/25/22 05:34 Dose: Not Given Liothyronine Sodium (Liothyronine 5 Mcg Tablet) 10 mcg PO DAILY [facility] Stop: 05/21/23 08:59 Last Admin: 05/25/22 08:31 Dose: 10 mcg Multivitamins (Multivitamin 1 Tab Tablet) 1 tab PO DAILY [facility] Stop: 05/21/23 08:59 Last Admin: 05/25/22 08:31 Dose: 1 tab Nifedipine (Nifedipine Er.24hr 30 Mg Tab.Er.24) 30 mg PO BID [facility] Stop: 05/20/23 20:59 Last Admin: 05/25/22 08:30 Dose: 30 mg Ondansetron HCl (Ondansetron 4 Mg/2 Ml Vial) 4 mg IV-PUSH Q8H PRN PRN Reason: Nausea And Vomiting Stop: 05/20/23 13:39 Oxycodone HCl (Oxycodone Ir 5 Mg Tablet) 5 mg PO Q6H PRN PRN Reason: Pain Scale 4 - 7 Pantoprazole Sodium (Pantoprazole 40 Mg Tablet.Dr) 40 mg PO BID REDD Stop: 05/20/23 20:59 Last Admin: 05/25/22 08:31 Dose: 40 mg Potassium Chloride (Potassium Chloride Er 20 Meq Tab.Er.Prt) 40 meq PO DAILY PRN PRN Reason: Hypokalemia Stop: 05/20/23 13:39 Sodium Bicarbonate (Sodium Bicarbonate 650 Mg Tablet) 1,300 mg PO BID [facility] Stop: 05/20/23 20:59 Last Admin: 05/25/22 08:30 Dose: 1,300 mg Sodium Chloride (Sodium Chloride 0.9 % 10 Ml Syringe) 0 ml IV-PUSH PRN PRN PRN Reason: Flush Stop: 05/20/23 10:09 Last Admin: 05/25/22 05:06 Dose: 10 ml Vancomycin HCl (Vancomycin - Pharmacy Dosing 1 Each Miscell) 1 each IV ONCE PRN; Protocol PRN Reason: ALBERTA.Pharmacy Consult Vitamin D (Cholecalciferol 25 Mcg (1,000 Units) Tablet) 50 mcg PO DAILY [facility] Stop: 05/21/23 08:59 Last Admin: 05/25/22 08:30 Dose: 50 mcg A&P - Infectious Disease Assessment/Plan (1) Osteomyelitis of right foot: Code(s): M86.9 - Osteomyelitis, unspecified Status: Acute (2) Diabetic foot ulcer with osteomyelitis: Code(s): E11.621 - Type 2 diabetes mellitus with foot ulcer; E11.69 - Type 2 diabetes mellitus with other specified complication; L97.509 - Non-pressure chronic ulcerof other part of unspecified foot with unspecified severity; M86.9 - Osteomyelitis, unspecified Status: Acute (3) Type 2 diabetes mellitus with diabetic chronic kidney disease: Code(s): E11.22 - Type 2 diabetes mellitus with diabetic chronic kidney disease Status: Acute (4) CKD (chronic kidney disease) stage 5, GFR less than 15 ml/min: Code(s): N18.5 - Chronic kidney disease, stage 5 Status: Acute Plan Status post surgery on his foot but per my discussion with Dr. Luis yesterday there is concerned that residual osteomyelitis may still be present and that therefore IV antibiotics will be planned for outpatient. PICC line will be ordered. Previous cultures from bone biopsy had only Bacteroides fragilis. Newculture again with Bacteroides fragilis but currently on vancomycin and Zosyn. IV ertapenem arranged for home. Okay for discharge from my standpoint Documented By: Ashutosh Thomas MD 05/25/22 1120 Signed By: <Electronically signed by MD Ashutosh Thomas> 05/25/22 1121 [facility] Work Phone: [phone]) 332-181903-06-2023 Discharge summary Author Scotty Kahn [facility] May 25, 2022 5:23pm Note Date/Time May 25, 2022 10:3 0am [facility] [address] [place] [address] Discharge Summary Signed Patient: Gopal Yates Jr MR#: [id number] : 1965 Acct:[id number] Age/Sex: 56 / M Adm Date: 3 Loc: Room: [address] [place] [address]: Scotty Kahn DO Copies to: Bryan Velez DO, RES MD Scotty Mahoney DO~ Providers Date of Admission: 05/20/22 Date of Discharge: 05/25/22 Discharging Provider: Scotty Kahn Primary Care Provider: Douglas Juárez Consults: 05/20/22 13:45 Consult to Infectious Diseases Routine Consult to Nephrology Routine Consult to Podiatry Routine 05/21/22 01:50 Consult to Dietitian Routine 05/22/22 08:23 Consult to Case Management Routine Discharge Diagnosis (1) Osteomyelitis of right foot: (2) Diabetic foot ulcer with osteomyelitis: (3) Type 2 diabetes mellitus with diabetic chronic kidney disease: (4) Anemia of renal disease: (5) CKD (chronic kidney disease) stage 5, GFR less than 15 ml/min: Final Diagnosis Final Discharge Diagnosis: Osteomyelitis of right foot in setting of type 2 diabetes CKD stage V Anemia of renal disease Summary Hospital Course Hospital course: Mr. 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 Patient recently was discharged from the hospital on 05/14/22, where he underwentpartial right fifth ray amputation on the right foot and was discharged home on oral antibiotics. Patient had been following with podiatry who noted worsening Rfoot ulcer and was sent to ER. Imaging was suspicious for osteomyelitis and patient was admitted with infectious disease consult and IV vancomycin plus Zosyn. Podiatry was consulted and on 05/21/2022 patient underwent amputation of right fourth digit, I&D of deep abscess of right third intermetatarsal space andreconstruction of right lateral fifth metatarsal surgical wound. Plan will be for patient to be discharged home with woundvac on right surgical wound along with PICC line for continued IV antibiotic (Invanz) treatment per ID recommendations. Nephrology also followed patient throughout hospital stay to manage CKD stage 5 and relevant comorbidities including anemia of chronic renal disease. Patient has already seen general surgery on outpatient basis for placement of PD cath which is supposed to be happening in the coming weeks. Nephrology noted no urgent need for hemodialysis and recommended continued outpatient f/u with nephrology, hematology and general surgery. Patient was seen and examined on day of discharge with in room. He is reporting that he is feeling much better and ready for discharge home today. Patient did have 1 bout of diarrhea during hospital stay which he thinks is related to some bad fish he had as it prompted 3 loose bowel movements. Since then he has not had no loose bowel movements and that has completely resolved. Otherwise, currently patient denies any chest pain, shortness of breath, abdominal pain, nausea, vomiting, diarrhea, constipation or bilateral upper or lower extremity pain. Patient is stable and ready for discharge home. Condition Condition at Discharge: Stable Time Spent with Patient Time spent providing/coordinating discharge services (# min): 30 Surgeries and Procedures Operation Date: 05/21/22 17:40 Actual Procedures p OR Right Foot Debridement, 4th Toe & Possible 4th Metatarsal Amputation(Right)- Primo Luis DPM, Operation Date: 05/22/22 14:05 Actual Procedures p IR PICC Line Insertion(Left) - Nathan Molina MD Diagnostic Studies Completed and Pending Studies Pending studies at discharge: 05/20/22 11:12 Blood Culture Stat 05/21/22 18:37 Wound Culture (Deep) Routine 05/25/22 20:00 Vancomycin,Random [TOX] Timed Preliminary micro results at discharge 05/21/22 18:37 Anaerobic Culture - Preliminary Foot,Right - Ulcer Bacteroides fragilis 05/20/22 11:12 Blood Culture - Preliminary Blood - Left Antecubital No Growth 4 Days 05/20/22 11:00 Blood Culture - Preliminary Blood - Left Antecubital No Growth 4 Days Labs on day of discharge: 05/25/22 06:38: POC Glucose 101, POC Glucose Comment Glu2: cleaned meter 05/25/22 05:10: PHA Creatinine Clear 21.99, Sodium 134 L, Potassium 4.2, Chloride 104, Carbon Dioxide 21.0 L, Anion Gap 13.2, BUN 68 H, Creatinine 4.55 H, Est GFR ( Amer) 16, Est GFR (Non-Af Amer) 13, Glucose 94, Calcium 7.8 L, Phosphorus 4.1, Albumin 1.7 L 05/25/22 05:10: Corrected WBC 7.7, Uncorrected WBC Count 7.7, RBC 2.90 L, Hgb 7.9 L, Hct 23.7 L, MCV 81.7 L, MCH 27.4 L, MCHC 33.6, RDW 15.0 H, Plt Count 191, MPV 8.6, Neut % (Auto) 75.9, Lymph % (Auto) 9.2, Edmunds % (Auto) 10.5, Eos % (Auto) 3.4, Baso % (Auto) 1.0, Nucleat RBC Rel Count 0.0, Neut # (Auto) 5.8, Lymph # (Auto) 0.7 L, Edmunds # (Auto) 0.8, Eos # (Auto) 0.3, Baso # (Auto) 0.1 05/24/22 20:39: POC Glucose 150, POC Glucose Comment Glu2: cleaned meter 05/24/22 16:50: POC Glucose 131 05/24/22 12:07: POC Glucose 147 Exam Physical Exam Vital Signs: Temp Pulse Resp BP Pulse Ox O2 Del Method 98.0 F 62 16 153/77 H 94 L Room Air 05/25/22 08:00 05/25/22 08:00 05/25/22 08:00 05/25/22 08:00 05/25/22 08:00 05/25/22 08:00 Narrative: General -awake, alert, oriented ?3, not in acute distress, lying in upright position, does not appear to be respiratory distress Cardiovascular - regular rate and rhythm, S1 & S2 Pulmonary - clear to auscultation bilaterally, no RRW Gastrointestinal - abdomen is soft, nondistended, nontender, normoactive bowel sounds, there is no guarding, rebound or rigidity Extremities -wound VAC in place on right lateral foot, no swelling or erythema noted around area outside of wound VAC, otherwise no edema, clubbing or cyanosis of bilateral extremities Neurological -no focal neurological deficit noted, 5/5 muscle strength in all extremities +++++ I personally examined the patient on this day of the encounter. I reviewed the relevant history, performed the quiñonez elements of the physical examination, and coordinated the plan of care and I confirmed the resident's medical documentation as written. Discharge Plan Discharge Plan Patient Disposition: Home Activity: Ambulate as Tolerated Diet: Diabetic and Low-Sodium Additional Instructions: Obtain weekly CRP levels at infusion center as ordered. Send results to Dr. Thomas Maintain and perform routine care to left upper arm PICC line. *Change dressing every 7 days and PRN-- sterile antimicrobial dressing applied per protocol. Change statlock with every dressing change. *Administer IV antibiotics as ordered Dietitian recommendations: *Boost glucose control, 1 container, twice daily with meals Change wound vac every other day and PRN to right foot: *Continuous KCI @ 150 mmHg-- MWF Monitor glucose levels as before. Instructions: Heart Failure, Adult (DC) Prescriptions: New ertapenem [Invanz] 1 gram recon soln 0.5 g IV DAILY 40 Days Qty: 40 0RF Continued liothyronine 5 mcg tablet 10 mcg PO DAILY Patient Comments: TAKE TWO TABLETS BY MOUTH ONCE DAILY cyproheptadine 4 mg tablet 4 mg PO BID Patient Comments: TAKE ONE TABLET BY MOUTH TWICE A DAY nifedipine 30 mg tablet extended release 24hr 30 mg PO BID carvedilol 25 mg tablet 37.5 mg PO BID bumetanide 2 mg tablet 2 mg PO DAILY aspirin 81 mg tablet,delayed release (DR/EC) 81 mg PO DAILY levothyroxine 100 mcg tablet 100 mcg PO DAILY hydralazine 50 mg tablet 50 mg PO TID ezetimibe 10 mg tablet 10 mg PO DAILY isosorbide dinitrate 10 mg tablet 10 mg PO TID insulin glargine [Lantus U-100 Insulin] 100 unit/mL solution 16 unit subcut QAM omeprazole 40 mg capsule,delayed release(DR/EC) 40 mg PO BID insulin aspart U-100 100 unit/mL (3 mL) insulin pen See Rx Instructions .ROUTE .COMPLEX Rx Instructions: <140 give 4 units 140-200 give 8 units >200 give 12 units cholecalciferol (vitamin D3) [Vitamin D3] 50 mcg (2,000 unit) capsule 50 mcg PO DAILY multivitamin Tablet 1 tab PO DAILY sodium bicarbonate 650 mg Tablet 1,300 mg PO BID 30 Days Qty: 120 2RF Discontinued amoxicillin-pot clavulanate [Augmentin] 500-125 mg tablet 1 tab PO BID 14 Days Qty: 28 0RF Other Ambulatory Orders: C-Reactive Protein (Q7D) Timeframe: 20220527 Location: Determined by Patient Ordered By: Ashutosh Thomas C-Reactive Protein (Q7D) Timeframe: 20220603 Location: Determined by Patient Ordered By: Ashutosh Thomas C-Reactive Protein (Q7D) Timeframe: 20220610 Location: Determined by Patient Ordered By: Ashutosh Thomas C-Reactive Protein (Q7D) Timeframe: 20220617 Location: Determined by Patient Ordered By: Ashutosh Thomas Follow Up: [facility] – [place] Infusion Center [Outside] - 05/27/22 2:30 pm (For wound vac change, PICC line dressing change, and weekly labs) Sohan Kellogg MD [Active Staff] - 05/28/22 (PD Catheter Insertion scheduled forthe following date. ) Ashutosh Thomas MD [Active Staff] - 06/29/22 1:45 pm (You have been scheduled fora follow up appointment for the following date and time, please call to reschedule if needed.) Eddy Griggs DPM [Active Staff] - 05/28/22 3:30 pm (You have been scheduled for a follow up appointment for the following date and time, please call to reschedule if needed.) Douglas Juárez MD [Primary Care Provider] - 05/29/22 10:45 am (You have been scheduled for a follow up appointment for the following date and time, please call to reschedule if needed.) Yvonne Barboza MD [Active Staff] - 06/03/22 3:40 pm (Previously scheduled appointment. ) Documented By: Scotty Kahn DO [id number] Signed By: <Electronically signed by Scotty Kahn DO> 05/25/22 1723 <Electronically signed by RES Bryan Velez> 05/25/[address] [facility] Work Phone: [phone] 958-142903-05-2023 Progress note Author Cristobal Butts [facility] May 24, 2022 12:26pm Note Date/Time May 24, 2022 12:2 6pm [facility] [address] [place] [address] Nephrology Progress Note Signed Patient: Gopal Yates Jr MR#: [id number] : 1965 Acct:[id number] Age/Sex: 56 / M Adm Date: 3 Loc: Room: [address] [place] [address] Type: ADM IN Attending Dr: Salvador Alonso MD Copies to: ~ Date of Service: 05/24/2022 Subjective Subjective Narrative: This is 56-year-old male patient with a past medical history of chronic kidney disease stage V from diabetic and hypertensive nephropathy follows with me in renal office. Coronary artery disease with history of myocardial infarction, heart failure with reduced ejection fraction, hyperlipidemia, insulin-dependent diabetes mellitus and hypothyroidism. Patient was referred to the hospital by his podiatric physician for worsening right lateral foot ulcer. Patient had recent partial fifth ray amputation of his right foot. Patient was discharged to finish antibiotics. Foot MRI from yesterday showed edema in the head of the second metatarsal as well as the proximal and middle phalanx of the fourth digitsuspicious for osteomyelitis. Edema is also noted at the fourth transmetatarsaljunction suspicious for osteomyelitis. There is also marrow edema affecting thehead of the third metatarsal as well as the proximal phalanx of the third digit suspicious for osteomyelitis. There is evidence of ulceration along the lateralsoft tissues of the right foot with subcutaneous emphysema. There is a fluid collection along the interspace between the heads of the third and the fourth metatarsal suspicious for abscess formation. There is diffuse soft tissue swelling consistent with cellulitis. Patient is scheduled for OR today at 5:30 for possible more amputation with I&D. Currently on vancomycin IV. Renal team is consulted for CKD management. Last office visit with me was March 2022 when he was referred to vascular surgeon for PD catheter placement which was supposed to be done next week. Patient has been following with hematology clinic here in [facility] for CAROL injection. Patient missed her last appointment. Hemoglobin this morning 7.7 g deciliter. Kidney function remains at baseline with today serum creatinine 5.2 mmol/L and GFR 11 mm/min. BUN 72. Potassium 4.0. Serum bicarb 20 Interval history: Patient was seen and examined in his room. Patient had right fourth toe amputated with I&D of right foot abscess done May 22. Patient now has right foot wound VAC Still on antibiotics vancomycin and Zosyn. Waiting on OR culture to finalize antibiotics. Patient denied nausea vomiting. No abdominal pain. No chest pain. No shortness of breath. No diarrhea. No cough. No fever Exam Physical Exam Vital Signs: Temp Pulse Resp BP Pulse Ox O2 Del Method 97.9 F 56 L 16 137/71 96 Room Air 05/24/22 07:38 05/24/22 07:38 05/24/22 07:38 05/24/22 07:38 05/24/22 07:38 05/24/22 08:00 Narrative: General: No acute distress Head :atraumatic normocephalic Eyes: PERRLA. Significant pallor Neck: no JVD no bruit. Heart: S1-S2. RRR Respiratory: Clear to auscultation. No wheezing. No crackles Abdomen: Soft, positive bowel sounds,no tenderness. Neurology: Awake alert oriented x3. No focal deficits Extremity. No cyanosis. Trace edema of right lower extremity. Right foot is wrapped. Wound VAC in place Skin: No skin rash Objective Intake and Output I&O: Intake & Output 05/21/22 05/22/22 05/23/22 05/24/22 23:59 23:59 23:59 23:59 Intake Total 900 / 900 1840 / 1840 2460 / 2460 450 / 450 Output Total 901 / 901 800 / 800 2470 / 2470 800 / 800 Balance -1 / -1 1040 / 1040 -10 / -10 -350 / -350 Weight 84.4 kg 84.6 kg 85.2 kg 86 kg Meds and Allergies Meds: Active Medications Acetaminophen (Acetaminophen 325 Mg Tablet) 650 mg PO Q6H PRN PRN Reason: Pain Scale 1 - 3 or fever Stop: 05/20/23 13:39 Last Admin: 05/22/22 06:05 Dose: 650 mg Bumetanide (Bumetanide 2 Mg Tablet) 2 mg PO DAILY [facility] Stop: 05/21/23 08:59 Last Admin: 05/24/22 08:56 Dose: 2 mg Carvedilol (Carvedilol 12.5 Mg Tablet) 37.5 mg PO BID.WITH.MEALS [facility] Stop: 05/20/23 16:59 Last Admin: 05/24/22 08:56 Dose: 37.5 mg Cyproheptadine HCl (Cyproheptadine 4 Mg Tablet) 4 mg PO BID [facility] Stop: 05/23/23 20:59 Last Admin: 05/24/22 08:55 Dose: 4 mg Ezetimibe (Ezetimibe 10 Mg Tablet) 10 mg PO DAILY [facility] Stop: 05/21/23 08:59 Last Admin: 05/24/22 08:56 Dose: 10 mg Hydralazine HCl (Hydralazine 50 Mg Tablet) 50 mg PO TID [facility] Stop: 05/20/23 13:59 Last Admin: 05/24/22 08:56 Dose: 50 mg Piperacillin Sod/Tazobactam Sod (Zosyn 2.25gm) 2.25 gm in 100 mls @ 200 mls/hr IV Q6H [facility] Last Admin: 05/24/22 11:49 Dose: 200 mls/hr Insulin Glargine (Insulin Glargine 300 Units/3 Ml Insuln.Pen) 16 units SUBCUT QAM [facility] Stop: 05/21/23 08:59 Last Admin: 05/24/22 08:56 Dose: 16 units Isosorbide Dinitrate (Isosorbide Dinitrate 10 Mg Tablet) 10 mg PO TID [facility] Stop: 05/20/23 13:59 Last Admin: 05/24/22 08:55 Dose: 10 mg Levothyroxine Sodium (Levothyroxine 100 Mcg Tablet) 100 mcg PO DAILY@0630 [facility] Stop: 05/21/23 06:29 Last Admin: 05/24/22 05:44 Dose: 100 mcg Liothyronine Sodium (Liothyronine 5 Mcg Tablet) 10 mcg PO DAILY [facility] Stop: 05/21/23 08:59 Last Admin: 05/24/22 08:56 Dose: 10 mcg Multivitamins (Multivitamin 1 Tab Tablet) 1 tab PO DAILY [facility] Stop: 05/21/23 08:59 Last Admin: 05/24/22 08:56 Dose: 1 tab Nifedipine (Nifedipine Er.24hr 30 Mg Tab.Er.24) 30 mg PO BID [facility] Stop: 05/20/23 20:59 Last Admin: 05/24/22 08:55 Dose: 30 mg Ondansetron HCl (Ondansetron 4 Mg/2 Ml Vial) 4 mg IV-PUSH Q8H PRN PRN Reason: Nausea And Vomiting Stop: 05/20/23 13:39 Oxycodone HCl (Oxycodone Ir 5 Mg Tablet) 5 mg PO Q6H PRN PRN Reason: Pain Scale 4 - 7 Pantoprazole Sodium (Pantoprazole 40 Mg Tablet.Dr) 40 mg PO BID [facility] Stop: 05/20/23 20:59 Last Admin: 05/24/22 08:56 Dose: 40 mg Potassium Chloride (Potassium Chloride Er 20 Meq Tab.Er.Prt) 40 meq PO DAILY PRN PRN Reason: Hypokalemia Stop: 05/20/23 13:39 Sodium Bicarbonate (Sodium Bicarbonate 650 Mg Tablet) 1,300 mg PO BID [facility] Stop: 05/20/23 20:59 Last Admin: 05/24/22 08:56 Dose: 1,300 mg Sodium Chloride (Sodium Chloride 0.9 % 10 Ml Syringe) 0 ml IV-PUSH PRN PRN PRN Reason: Flush Stop: 05/20/23 10:09 Last Admin: 05/24/22 05:44 Dose: 10 ml Vancomycin HCl (Vancomycin - Pharmacy Dosing 1 Each Miscell) 1 each IV ONCE PRN; Protocol PRN Reason: ALBERTA.Pharmacy Consult Vitamin D (Cholecalciferol 25 Mcg (1,000 Units) Tablet) 50 mcg PO DAILY [facility] Stop: 05/21/23 08:59 Last Admin: 05/24/22 08:56 Dose: 50 mcg Allergies Sulfa (Sulfonamide Antibiotics) Allergy (Verified 05/20/22 10:10) Hives Results Labs 05/24/22 05:45 05/24/22 05:45 Labs: 05/24/22 05:45 BUN 72 H Creatinine 4.62 H Phosphorus 4.3 Albumin 1.6 L Radiology Impressions Impressions - last 24 hours: Any impression(s) listed above is documentation that was entered by the reading physician into a diagnostic report(s) for Gopal Yates Jr. I have reviewed the report(s) and am incorporating any findings in the treatment plan of this patient where applicable. A&P - Nephrology Assessment/Plan (1) CKD (chronic kidney disease) stage 5, GFR less than 15 ml/min: Plan: Patient has advanced CKD from diabetic nephropathy. Patient follows with me in the renal office. Last visit was March 2022 when he was referred to general surgery for PD catheter placement which supposed to be done next week. Kidney function remains at baseline. There is no urgent need to start hemodialysis. Iwill continue to monitor renal function panel while he is on antibiotics. Please keep vancomycin level between 15 and 20 to avoid tubular injury. Avoid NSAIDs for pain control. Avoid IV contrast. Continue oral sodium bicarb. Check renal function panel in the morning if he remains inpatient (2) Diabetes mellitus with diabetic neuropathy: Plan: Patient has insulin-dependent diabetes mellitus. Currently he is on insulin glargine 16 units daily. I do not see insulin covering the meals. I will deferdiabetes measurement to the primary service (3) Hypertensive kidney disease with chronic kidney disease stage V: Plan: Blood pressure and volume are well controlled. Patient is on Bumex, Coreg, hydralazine, nifedipine. I will continue to monitor blood pressure and adjust medications as needed (4) Anemia of renal disease: Plan: Patient has anemia from CKD. Patient has been following with hematology clinic here in [facility] for CAROL injection . Patient missed the last appointment. Patient received 1 unit of RBC May 21. Patient also was given 1 dose of Vmbccn42,000 units May 21 . Hemoglobin is 8 mg deciliter this morning. No need for RBC transfusion. Continue to monitor H&H (5) Osteomyelitis of right foot: Plan: Right foot MRI findings as as in HPI. Patient currently covered by vancomycin and Zosyn IV. Status post amputation of the right fourth toe with I&D of right foot abscess with wound VAC placement during this admission. Podiatry service is following Documented By: Cristobal Butts MD 05/24/221224 Signed By: <Electronically signed by Cristobal Butts MD> 05/24/[address] [facility] Work Phone: [phone]) [phone] Progress note Author Salvador Alonso [facility] May 24, 2022 12:12pm Note Date/Time May 24, 2022 12:1 2pm [facility] [address] [place] [address] Hospitalist Progress Note Signed Patient: Gopal Yates Jr MR#: [id number] : 1965 Acct:[id number] Age/Sex: 56 / M Adm Date: 3 Loc: Room: [address] [place] [address] Type: ADM IN Attending Dr: Salvador Alonso MD Copies to: ~ Date of Service: 05/24/2022 Subjective Subjective Narrative: Patient seen and examined. Patient had the moderately loose bowel movements butno odor to it since morning today. She denies any mucus or blood in it. Deniesany nausea, vomiting or abdominal pain. Has been afebrile. He is eating food with no issues. Denies any pain in his foot. Exam Physical Exam Vital Signs: Temp Pulse Resp BP Pulse Ox O2 Del Method 97.9 F 56 L 16 137/71 96 Room Air 05/24/22 07:38 05/24/22 07:38 05/24/22 07:38 05/24/22 07:38 05/24/22 07:38 05/24/22 08:00 Narrative: General: Awake, alert, oriented x3 not in acute distress HEENT: Normocephalic, atraumatic, PERRLA, normal mucosa Cardiovascular: Regular rate and rhythm , S1-S2 heard, no murmurs or gallops Lungs: No wheezing or rhonchi heard Gastrointestinal: Soft, nontender, bowel sounds heard Extremities: Right foot dressing dry and intact Neurological: no sensory or motor deficit Skin: Dry and warm, no rashes or lesions Psych: Normal mood and affect Objective Lab Results 05/24/22 05:45 05/24/22 05:45 Microbiology Results Microbiology 05/20/22 11:12 Blood - Left Antecubital Blood Culture - Preliminary No Growth 4 Days 05/20/22 11:00 Blood - Left Antecubital Blood Culture - Preliminary No Growth 4 Days 05/21/22 18:37 Foot,Right - Ulcer Aerobic Culture - Final No Growth 2 Days 05/21/22 18:37 Foot,Right - Ulcer Anaerobic Culture - Preliminary Bacteroides fragilis 05/21/22 18:37 Foot,Right - Ulcer Gram Stain - Final Meds Allergies and Active Meds Allergies Sulfa (Sulfonamide Antibiotics) Allergy (Verified 05/20/22 10:10) Hives Active Meds: Active Medications Generic Name Dose Route Start Last Admin Trade Name Freq PRN Reason Stop Dose Admin Acetaminophen 650 mg 05/20/22 13:40 05/22/22 06:05 Acetaminophen 325 Mg Tablet PO 05/20/23 13:39 650 mg Q6H PRN Administration Pain Scale 1 - 3 or fever Bumetanide 2 mg 05/21/22 09:00 05/24/22 08:56 Bumetanide 2 Mg Tablet PO 05/21/23 08:59 2 mg DAILY REDD Administration Carvedilol 37.5 mg 05/20/22 17:00 05/24/22 08:56 Carvedilol 12.5 Mg Tablet PO 05/20/23 16:59 37.5 mg BID.WITH.MEALS REDD Administration Cyproheptadine HCl 4 mg 05/23/22 21:00 05/24/22 08:55 Cyproheptadine 4 Mg Tablet PO 05/23/23 20:59 4 mg BID REDD Administration Ezetimibe 10 mg 05/21/22 09:00 05/24/22 08:56 Ezetimibe 10 Mg Tablet PO 05/21/23 08:59 10 mg DAILY REDD Administration Hydralazine HCl 50 mg 05/20/22 14:00 05/24/22 08:56 Hydralazine 50 Mg Tablet PO 05/20/23 13:59 50 mg TID REDD Administration Piperacillin Sod/Tazobactam Sod 2.25 gm in 100 mls @ 200 mls/hr 05/21/22 11:30 05/24/22 11:49 Zosyn 2.25gm IV 200 mls/hr Q6H REDD Administration Insulin Glargine 16 units 05/21/22 09:00 05/24/22 08:56 Insulin Glargine 300 Units/3 Ml Insuln.Pen SUBCUT 05/21/23 08:59 16 units QAM REDD Administration Isosorbide Dinitrate 10 mg 05/20/22 14:00 05/24/22 08:55 Isosorbide Dinitrate 10 Mg Tablet PO 05/20/23 13:59 10 mg TID REDD Administration Levothyroxine Sodium 100 mcg 05/21/22 06:30 05/24/22 05:44 Levothyroxine 100 Mcg Tablet PO 05/21/23 06:29 100 mcg DAILY@0630 REDD Administration Liothyronine Sodium 10 mcg 05/21/22 09:00 05/24/22 08:56 Liothyronine 5 Mcg Tablet PO 05/21/23 08:59 10 mcg DAILY REDD Administration Multivitamins 1 tab 05/21/22 09:00 05/24/22 08:56 Multivitamin 1 Tab Tablet PO 05/21/23 08:59 1 tab DAILY REDD Administration Nifedipine 30 mg 05/20/22 21:00 05/24/22 08:55 Nifedipine Er.24hr 30 Mg Tab.Er.24 PO 05/20/23 20:59 30 mg BID REDD Administration Ondansetron HCl 4 mg 05/20/22 13:40 Ondansetron 4 Mg/2 Ml Vial IV-PUSH 05/20/23 13:39 Q8H PRN Nausea And Vomiting Oxycodone HCl 5 mg 05/20/22 13:40 Oxycodone Ir 5 Mg Tablet PO Q6H PRN Pain Scale 4 - 7 Pantoprazole Sodium 40 mg 05/20/22 21:00 05/24/22 08:56 Pantoprazole 40 Mg Tablet. PO 05/20/23 20:59 40 mg BID REDD Administration Potassium Chloride 40 meq 05/20/22 13:40 Potassium Chloride Er 20 Meq Tab.Er.Prt PO 05/20/23 13:39 DAILY PRN Hypokalemia Sodium Bicarbonate 1,300 mg 05/20/22 21:00 05/24/22 08:56 Sodium Bicarbonate 650 Mg Tablet PO 05/20/23 20:59 1,300 mg BID REDD Administration Sodium Chloride 0 ml 05/20/22 10:10 05/24/22 05:44 Sodium Chloride 0.9 % 10 Ml Syringe IV-PUSH 05/20/23 10:09 10 ml PRN PRN Administration Flush Vancomycin HCl 1 each 05/20/22 13:45 Vancomycin - Pharmacy Dosing 1 Each Miscell IV ONCE PRN ZZ.Pharmacy Consult Protocol Vitamin D 50 mcg 05/21/22 09:00 05/24/22 08:56 Cholecalciferol 25 Mcg (1,000 Units) Tablet PO 05/21/23 08:59 50 mcg DAILY REDD Administration A&P - Hospitalist Assessment/Plan (1) Osteomyelitis of right foot: (2) Ulcer of right foot with necrosis of bone: (3) Diabetic foot ulcer with osteomyelitis: (4) Hypertensive kidney disease with chronic kidney disease stage V: Plan S/p right foot fourth digit amputation and revision of fifth metatarsal amputation with I&D to the right foot Had 3 moderately loose bowel movements since morning but denies any other GI complaints. Stool for C. difficile ordered and has not been collected yet Patient is hemodynamically stable and is afebrile, saturating 96% on room air Hemoglobin 8, will continue to monitor Kidney functions at baseline, nephrology following Had PICC line on Wednesday, IV antibiotics ordered per ID however could not be arranged because of weekend. Continue IV antibiotics DVT prophylaxis CODE STATUS full code Anticipate discharge tomorrow once IV antibiotics arranged at home Documented By: Salvador Alonso MD 05/24/22 1210 Signed By: <Electronically signed by Salvador Alonso MD> 05/24/[address] [facility] Work Phone: [phone] Progress note Author Cristobal Butts [facility] May 23, 2022 1:42pm Note Date/Time May 23, 2022 1:40 pm [facility] [address] [place] [address] Nephrology Progress Note Signed Patient: Gopal Yates Jr MR#: [id number] : 1965 Acct:[id number] Age/Sex: 56 / M Adm Date: 3 Loc: 3T Room: [address] [place] [address] Type: ADM IN Attending Dr: Salvador Alonso MD Copies to: ~ Date of Service: 05/23/2022 Subjective Subjective Narrative: This is 56-year-old male patient with a past medical history of chronic kidney disease stage V from diabetic and hypertensive nephropathy follows with me in renal office. Coronary artery disease with history of myocardial infarction, heart failure with reduced ejection fraction, hyperlipidemia, insulin-dependent diabetes mellitus and hypothyroidism. Patient was referred to the hospital by his podiatric physician for worsening right lateral foot ulcer. Patient had recent partial fifth ray amputation of his right foot. Patient was discharged to finish antibiotics. Foot MRI from yesterday showed edema in the head of the second metatarsal as well as the proximal and middle phalanx of the fourth digitsuspicious for osteomyelitis. Edema is also noted at the fourth transmetatarsaljunction suspicious for osteomyelitis. There is also marrow edema affecting thehead of the third metatarsal as well as the proximal phalanx of the third digit suspicious for osteomyelitis. There is evidence of ulceration along the lateralsoft tissues of the right foot with subcutaneous emphysema. There is a fluid collection along the interspace between the heads of the third and the fourth metatarsal suspicious for abscess formation. There is diffuse soft tissue swelling consistent with cellulitis. Patient is scheduled for OR today at 5:30 for possible more amputation with I&D. Currently on vancomycin IV. Renal team is consulted for CKD management. Last office visit with me was March 2022 when he was referred to vascular surgeon for PD catheter placement which was supposed to be done next week. Patient has been following with hematology clinic here in [facility] for CAROL injection. Patient missed her last appointment. Hemoglobin this morning 7.7 g deciliter. Kidney function remains at baseline with today serum creatinine 5.2 mmol/L and GFR 11 mm/min. BUN 72. Potassium 4.0. Serum bicarb 20 Interval history: Patient was seen and examined in his room. Patient had right fourth toe amputated with I&D of right foot abscess done May 22. Patient now has right foot wound VAC Still on antibiotics vancomycin and Zosyn. Waiting on OR culture to finalize antibiotics. Patient denied nausea vomiting. No abdominal pain. No chest pain. No shortness of breath. No diarrhea. No cough. No fever Exam Physical Exam Vital Signs: Temp Pulse Resp BP Pulse Ox O2 Del Method 98 F 50 L 18 134/80 95 Room Air 05/23/22 11:27 05/23/22 11:27 05/23/22 11:05/23/22 11:27 05/23/22 11:05/23/22 11:28 Narrative: General: No acute distress Head :atraumatic normocephalic Eyes: PERRLA. Significant pallor Neck: no JVD no bruit. Heart: S1-S2. RRR Respiratory: Clear to auscultation. No wheezing. No crackles Abdomen: Soft, positive bowel sounds,no tenderness. Neurology: Awake alert oriented x3. No focal deficits Extremity. No cyanosis. Trace edema of right lower extremity. Right foot is wrapped. Wound VAC in place Skin: No skin rash Objective Intake and Output I&O: Intake & Output 05/20/22 05/21/22 05/22/22 05/23/22 23:59 23:59 23:59 23:59 Intake Total 1040 / 1040 900 / 900 1840 / 1840 500 / 500 Output Total 400 / 400 901 / 901 800 / 800 Balance 640 / 640 -1 / -1 1040 / 1040 500 / 500 Weight 84.4 kg 84.4 kg 84.6 kg 85.2 kg Meds and Allergies Meds: Active Medications Acetaminophen (Acetaminophen 325 Mg Tablet) 650 mg PO Q6H PRN PRN Reason: Pain Scale 1 - 3 or fever Stop: 05/20/23 13:39 Last Admin: 05/22/22 06:05 Dose: 650 mg Bumetanide (Bumetanide 2 Mg Tablet) 2 mg PO DAILY [facility] Stop: 05/21/23 08:59 Last Admin: 05/23/22 09:36 Dose: 2 mg Carvedilol (Carvedilol 12.5 Mg Tablet) 37.5 mg PO BID.WITH.MEALS [facility] Stop: 05/20/23 16:59 Last Admin: 05/23/22 09:35 Dose: 37.5 mg Cyproheptadine HCl (Cyproheptadine 4 Mg Tablet) 4 mg PO DAILY [facility] Stop: 05/21/23 08:59 Last Admin: 05/23/22 09:36 Dose: 4 mg Ezetimibe (Ezetimibe 10 Mg Tablet) 10 mg PO DAILY [facility] Stop: 05/21/23 08:59 Last Admin: 05/23/22 09:35 Dose: 10 mg Hydralazine HCl (Hydralazine 50 Mg Tablet) 50 mg PO TID [facility] Stop: 05/20/23 13:59 Last Admin: 05/23/22 09:36 Dose: 50 mg Piperacillin Sod/Tazobactam Sod (Zosyn 2.25gm) 2.25 gm in 100 mls @ 200 mls/hr IV Q6H [facility] Last Admin: 05/23/22 11:31 Dose: 200 mls/hr Insulin Glargine (Insulin Glargine 300 Units/3 Ml Insuln.Pen) 16 units SUBCUT QAM [facility] Stop: 05/21/23 08:59 Last Admin: 05/23/22 09:38 Dose: 16 units Isosorbide Dinitrate (Isosorbide Dinitrate 10 Mg Tablet) 10 mg PO TID [facility] Stop: 05/20/23 13:59 Last Admin: 05/23/22 09:37 Dose: 10 mg Levothyroxine Sodium (Levothyroxine 100 Mcg Tablet) 100 mcg PO DAILY@0630 [facility] Stop: 05/21/23 06:29 Last Admin: 05/23/22 05:34 Dose: 100 mcg Liothyronine Sodium (Liothyronine 5 Mcg Tablet) 10 mcg PO DAILY [facility] Stop: 05/21/23 08:59 Last Admin: 05/23/22 09:35 Dose: 10 mcg Multivitamins (Multivitamin 1 Tab Tablet) 1 tab PO DAILY [facility] Stop: 05/21/23 08:59 Last Admin: 05/23/22 09:36 Dose: 1 tab Nifedipine (Nifedipine Er.24hr 30 Mg Tab.Er.24) 30 mg PO BID [facility] Stop: 05/20/23 20:59 Last Admin: 05/23/22 09:36 Dose: 30 mg Ondansetron HCl (Ondansetron 4 Mg/2 Ml Vial) 4 mg IV-PUSH Q8H PRN PRN Reason: Nausea And Vomiting Stop: 05/20/23 13:39 Oxycodone HCl (Oxycodone Ir 5 Mg Tablet) 5 mg PO Q6H PRN PRN Reason: Pain Scale 4 - 7 Pantoprazole Sodium (Pantoprazole 40 Mg Tablet.Dr) 40 mg PO BID [facility] Stop: 05/20/23 20:59 Last Admin: 05/23/22 09:35 Dose: 40 mg Potassium Chloride (Potassium Chloride Er 20 Meq Tab.Er.Prt) 40 meq PO DAILY PRN PRN Reason: Hypokalemia Stop: 05/20/23 13:39 Sodium Bicarbonate (Sodium Bicarbonate 650 Mg Tablet) 1,300 mg PO BID REDD Stop: 05/20/23 20:59 Last Admin: 05/23/22 09:36 Dose: 1,300 mg Sodium Chloride (Sodium Chloride 0.9 % 10 Ml Syringe) 0 ml IV-PUSH PRN PRN PRN Reason: Flush Stop: 05/20/23 10:09 Last Admin: 05/22/22 06:50 Dose: 10 ml Vancomycin HCl (Vancomycin - Pharmacy Dosing 1 Each Miscell) 1 each IV ONCE PRN; Protocol PRN Reason: ZZ.Pharmacy Consult Vitamin D (Cholecalciferol 25 Mcg (1,000 Units) Tablet) 50 mcg PO DAILY REDD Stop: 05/21/23 08:59 Last Admin: 05/23/22 09:36 Dose: 50 mcg Allergies Sulfa (Sulfonamide Antibiotics) Allergy (Verified 05/20/22 10:10) Hives Results Labs 05/23/22 05:46 05/23/22 05:46 Labs: 05/23/22 05:46 BUN 69 H Creatinine 4.57 H Phosphorus 4.6 Albumin 1.7 L Radiology Impressions Impressions - last 24 hours: Any impression(s) listed above is documentation that was entered by the reading physician into a diagnostic report(s) for Gopal Yates Jr. I have reviewed the report(s) and am incorporating any findings in the treatment plan of this patient where applicable. A&P - Nephrology Assessment/Plan (1) CKD (chronic kidney disease) stage 5, GFR less than 15 ml/min: Plan: Patient has advanced CKD from diabetic nephropathy. Patient follows with me in the renal office. Last visit was March 2022 when he was referred to general surgery for PD catheter placement which supposed to be done next week. Kidney function remains at baseline. There is no urgent need to start hemodialysis. Iwill continue to monitor renal function panel while he is on antibiotics. Please keep vancomycin level between 15 and 20 to avoid tubular injury. Avoid NSAIDs for pain control. Avoid IV contrast. Continue oral sodium bicarb. Check renal function panel in the morning if he remains inpatient (2) Diabetes mellitus with diabetic neuropathy: Plan: Patient has insulin-dependent diabetes mellitus. Currently he is on insulin glargine 16 units daily. I do not see insulin covering the meals. I will deferdiabetes measurement to the primary service (3) Hypertensive kidney disease with chronic kidney disease stage V: Plan: Blood pressure and volume are well controlled. Patient is on Bumex, Coreg, hydralazine, nifedipine. I will continue to monitor blood pressure and adjust medications as needed (4) Anemia of renal disease: Plan: Patient has anemia from CKD. Patient has been following with hematology clinic here in [facility] for CAROL injection . Patient missed the last appointment. Patient received 1 unit of RBC May 21. Patient also was given 1 dose of Ryejui02,000 units May 21 . Continue to monitor H&H (5) Osteomyelitis of right foot: Plan: Right foot MRI findings as as in HPI. Patient currently covered by vancomycin and Zosyn IV. Status post amputation of the right fourth toe with I&D of right foot abscess with wound VAC placement. Pediatric service is following Documented By: Cristobal Butts MD 05/23/22 0673 Signed By: <Electronically signed by Cristobal Butts MD> 05/23/22 134 [facility] Work Phone: [phone]) 335-489703-04-2023 Progress note Author Eddy Griggs [facility] May 23, 2022 10:48am Note Date/Time May 23, 2022 10:4 8am [facility] [address] [place] [address] Podiatry Progress Note Signed Patient: Gopal Yates Jr MR#: [id number] : 1965 Acct:[id number] Age/Sex: 56 / M Adm Date: 3 Loc: Room: [address] [place] [address] Type: ADM IN Attending Dr: Salvador Alonso MD Copies to: ~ Subjective Subjective Date of Service: Date of Service: 05/23/2022 Time of Service: 10:46 Narrative: Mr. Yates is a 56 year old male being seen at this time for POD #2 right foot 4th toe amputation, debridement and pulse lavage as well as I&D abscess right foot. He states that he has a mild stinging pain to the foot, but otherwise no pain. Denies any N/V/D/F/C. Patient seems understand the need to completely offload right foot he understands need for elevation of foot. Patient understands he is a very complicated patient with multiple comorbidities that are brought him to this level of pathology and surgery and will also obviously impair healing. He is very pleasant individual with diabetes mellitus, neuropathy and advanced renal disease as well unfortunately. Osteomyelitis is led to the amputation of partial right foot as documented previously. Exam Physical Exam Vital Signs: Temp Pulse Resp BP Pulse Ox O2 Del Method 97.7 F 63 18 139/72 96 Room Air 05/23/22 09:29 05/23/22 09:29 05/23/22 09:29 05/23/22 09:29 05/23/22 09:29 05/23/22 09:29 Narrative: Patient is awake alert and orient x3 resting comfortably in bed. Nurses presentthrough part of the examination. Dressing is intact right foot without any drainage coming through. The dressing was removed: Vascular examination shows that pulses appear to be intact and capillary refill less than 2 seconds skin is warm. Neurological examination: Neuropathy right lower extremity including motor, autonomic, sensory types: Nonpainful on examination removal of packing/dressings. Muscle skeletal examination: Right lower extremity weakness noted to toes however patient is able to dorsiflex/plantarflex right foot and ankle. Dermatology examination: Incision site to the lateral right foot is well copated. There is an open defect to the lateral foot proximal 5th metatarsal region with deep tissue and remiaing bone to the right 5th metatarsal exposed. There is no active pustular drainage to the right foot with milking. No malodornoted. Area of depth along the lateral foot toward the 3rd MPJ appears healthy with no active drainage. Cellulitis to the right foot does appear to be improving. Currently wound VAC is applied to the right foot and is under good suction with no evidence of drainage or moisture Orthopedic: amputation of the right 5th ray and 4th toe Radiology examination: X-ray 05-20-2022 reveals amputation obviously of the fifth toe and right fifth metatarsal partial base is intact. Appears to be possible osteomyelitis right fourth metatarsal region and fourth toe to a lesser degree. I have reviewed the film I agree with the reading. MRI read final result is still pending. Assessment/Plan (1) Osteomyelitis of right foot: Plan: Patient is s/p right foot 4th digit amputation and revision of 5th metatarsal amputation with I&D to the right foot. He is doing well with pain. Prior cultures from hospitalization 2 weeks ago did grow an anarobe and final culture pending from the right foot surgery culture. I do feel that the patient would benefit from a course of IV antibiotics due to the concern for osteomyelitis to the right 3rd and 4th metatarsals based on MRI but patient is a difficult ase due to his renal function. ID is on board and patient has had PICC line placed. Wound VAC has been applied to the right foot. He states that he is scheduled for discharge on Wednesday once they are able to arrange visits at the infusion center. It has been very difficult getting home health care ordered for the patient due to his insurance and limited staffing. Patient states that he is okay to continue to go to the infusion center for dressing changes and him and his are going to be trained on the IV antibiotics. At this point time footappears stable, no need for additional surgery. Podiatry will continue to follow while patient is admitted.. Code(s): M86.9 - Osteomyelitis, unspecified (2) Ulcer of right foot with necrosis of bone: Code(s): L97.514 - Non-pressure chronic ulcer of other part of right foot with necrosis of bone (3) Diabetic foot ulcer with osteomyelitis: Code(s): E11.621 - Type 2 diabetes mellitus with foot ulcer; E11.69 - Type 2 diabetes mellitus with other specified complication; L97.509 - Non-pressure chronic ulcerof other part of unspecified foot with unspecified severity; M86.9 - Osteomyelitis, unspecified (4) Type 2 diabetes mellitus with diabetic chronic kidney disease: Code(s): E11.22 - Type 2 diabetes mellitus with diabetic chronic kidney disease (5) Hypertensive kidney disease with chronic kidney disease stage V: Code(s): I12.0 - Hypertensive chronic kidney disease with stage 5 chronic kidney disease or end stage renal disease; N18.5 - Chronic kidney disease, stage 5 (6) Anemia of renal disease: Code(s): N18.9 - Chronic kidney disease, unspecified; D63.1 - Anemia in chronic kidney disease (7) CKD (chronic kidney disease) stage 5, GFR less than 15 ml/min: Code(s): N18.5 - Chronic kidney disease, stage 5 (8) Surgical wound present: Code(s): T14.8XXA - Other injury of unspecified body region, initial encounter (9) Diabetes mellitus with diabetic neuropathy: Code(s): E11.40 - Type 2 diabetes mellitus with diabetic neuropathy, unspecified Documented By: Eddy Griggs DPM 05/23/22 10 46 Signed By: <Electronically signed by HARRY Griggs> 05/23/[address] [facility] Work Phone: [phone] 750-508803-04-2023 Progress note Author Salvador Alonso [facility] May 23, 2022 10:32am Note Date/Time May 23, 2022 10:3 2am [facility] [address] [place] [address] Hospitalist Progress Note Signed Patient: Gopal Yates Jr MR#: [id number] : 1965 Acct:[id number] Age/Sex: 56 / M Adm Date: 3 Loc: 3T Room: [address] [place] [address] Type: ADM IN Attending Dr: Salvador Alonso MD Copies to: ~ Date of Service: 05/23/2022 Subjective Subjective Narrative: Patient seen and examined. No acute overnight events per RN. Patient has some pain in the foot which is fairly well controlled with pain medication. She is awaiting IV antibiotics to be arranged at home. Exam Physical Exam Vital Signs: Temp Pulse Resp BP Pulse Ox O2 Del Method 97.7 F 63 18 139/72 96 Room Air 05/23/22 09:29 05/23/22 09:29 05/23/22 09:29 05/23/22 09:29 05/23/22 09:29 05/23/22 09:29 Narrative: General: Awake, alert, oriented x3 not in acute distress HEENT: Normocephalic, atraumatic, PERRLA, normal mucosa Cardiovascular: Regular rate and rhythm , S1-S2 heard, no murmurs or gallops Lungs: No wheezing or rhonchi heard Gastrointestinal: Soft, nontender, bowel sounds heard Extremities: Right foot dressing dry and intact Neurological: no sensory or motor deficit Skin: Dry and warm, no rashes or lesions Psych: Normal mood and affect Objective Lab Results 05/23/22 05:46 05/23/22 05:46 Microbiology Results Microbiology 05/21/22 18:37 Foot,Right - Ulcer Aerobic Culture - Preliminary No Growth 1 Day 05/21/22 18:37 Foot,Right - Ulcer Anaerobic Culture - Preliminary No Anaerobes Isolated 1 Day 05/21/22 18:37 Foot,Right - Ulcer Gram Stain - Final 05/20/22 11:28 Toe,Right Fifth - Abscess Superficial Wound Culture - Final Light Normal Skin Efren 2 Days 05/20/22 11:12 Blood - Left Antecubital Blood Culture - Preliminary No Growth 2 Days 05/20/22 11:00 Blood - Left Antecubital Blood Culture - Preliminary No Growth 2 Days Meds Allergies and Active Meds Allergies Sulfa (Sulfonamide Antibiotics) Allergy (Verified 05/20/22 10:10) Hives Active Meds: Active Medications Generic Name Dose Route Start Last Admin Trade Name Freq PRN Reason Stop Dose Admin Acetaminophen 650 mg 05/20/22 13:40 05/22/22 06:05 Acetaminophen 325 Mg Tablet PO 05/20/23 13:39 650 mg Q6H PRN Administration Pain Scale 1 - 3 or fever Bumetanide 2 mg 05/21/22 09:00 05/23/22 09:36 Bumetanide 2 Mg Tablet PO 05/21/23 08:59 2 mg DAILY REDD Administration Carvedilol 37.5 mg 05/20/22 17:00 05/23/22 09:35 Carvedilol 12.5 Mg Tablet PO 05/20/23 16:59 37.5 mg BID.WITH.MEALS REDD Administration Cyproheptadine HCl 4 mg 05/21/22 09:00 05/23/22 09:36 Cyproheptadine 4 Mg Tablet PO 05/21/23 08:59 4 mg DAILY REDD Administration Ezetimibe 10 mg 05/21/22 09:00 05/23/22 09:35 Ezetimibe 10 Mg Tablet PO 05/21/23 08:59 10 mg DAILY REDD Administration Hydralazine HCl 50 mg 05/20/22 14:00 05/23/22 09:36 Hydralazine 50 Mg Tablet PO 05/20/23 13:59 50 mg TID REDD Administration Piperacillin Sod/Tazobactam Sod 2.25 gm in 100 mls @ 200 mls/hr 05/21/22 11:30 05/23/22 05:35 Zosyn 2.25gm IV 200 mls/hr Q6H REDD Administration Insulin Glargine 16 units 05/21/22 09:00 05/23/22 09:38 Insulin Glargine 300 Units/3 Ml Insuln.Pen SUBCUT 05/21/23 08:59 16 units QAM REDD Administration Isosorbide Dinitrate 10 mg 05/20/22 14:00 05/23/22 09:37 Isosorbide Dinitrate 10 Mg Tablet PO 05/20/23 13:59 10 mg TID REDD Administration Levothyroxine Sodium 100 mcg 05/21/22 06:30 05/23/22 05:34 Levothyroxine 100 Mcg Tablet PO 05/21/23 06:29 100 mcg DAILY@0630 REDD Administration Liothyronine Sodium 10 mcg 05/21/22 09:00 05/23/22 09:35 Liothyronine 5 Mcg Tablet PO 05/21/23 08:59 10 mcg DAILY REDD Administration Multivitamins 1 tab 05/21/22 09:00 05/23/22 09:36 Multivitamin 1 Tab Tablet PO 05/21/23 08:59 1 tab DAILY REDD Administration Nifedipine 30 mg 05/20/22 21:00 05/23/22 09:36 Nifedipine Er.24hr 30 Mg Tab.Er.24 PO 05/20/23 20:59 30 mg BID REDD Administration Ondansetron HCl 4 mg 05/20/22 13:40 Ondansetron 4 Mg/2 Ml Vial IV-PUSH 05/20/23 13:39 Q8H PRN Nausea And Vomiting Oxycodone HCl 5 mg 05/20/22 13:40 Oxycodone Ir 5 Mg Tablet PO Q6H PRN Pain Scale 4 - 7 Pantoprazole Sodium 40 mg 05/20/22 21:00 05/23/22 09:35 Pantoprazole 40 Mg Tablet.Dr PO 05/20/23 20:59 40 mg BID REDD Administration Potassium Chloride 40 meq 05/20/22 13:40 Potassium Chloride Er 20 Meq Tab.Er.Prt PO 05/20/23 13:39 DAILY PRN Hypokalemia Sodium Bicarbonate 1,300 mg 05/20/22 21:00 05/23/22 09:36 Sodium Bicarbonate 650 Mg Tablet PO 05/20/23 20:59 1,300 mg BID REDD Administration Sodium Chloride 0 ml 05/20/22 10:10 05/22/22 06:50 Sodium Chloride 0.9 % 10 Ml Syringe IV-PUSH 05/20/23 10:09 10 ml PRN PRN Administration Flush Vancomycin HCl 1 each 05/20/22 13:45 Vancomycin - Pharmacy Dosing 1 Each Miscell IV ONCE PRN ZZ.Pharmacy Consult Protocol Vitamin D 50 mcg 05/21/22 09:00 05/23/22 09:36 Cholecalciferol 25 Mcg (1,000 Units) Tablet PO 05/21/23 08:59 50 mcg DAILY REDD Administration A&P - Hospitalist Assessment/Plan (1) Osteomyelitis of right foot: (2) Ulcer of right foot with necrosis of bone: (3) Diabetic foot ulcer with osteomyelitis: (4) Hypertensive kidney disease with chronic kidney disease stage V: Plan S/p right foot fourth digit amputation and revision of fifth metatarsal amputation with I&D to the right foot Patient is hemodynamically stable and is afebrile, saturating 96% on room air Hemoglobin stable Kidney functions at baseline, nephrology following Had PICC line yesterday. IV antibiotics ordered per ID however could not be arranged because of weekend Continue IV antibiotics DVT prophylaxis CODE STATUS full code Documented By: Salvador Alonso MD 05/23/22 1031 Signed By: <Electronically signed by Salvador Alonso MD> 05/23/[address] [facility] Work Phone: [phone] 414-387703-03-2023 Progress note Author Salvador Alonso [facility] May 22, 2022 2:54pm Note Date/Time May 22, 2022 2:55 pm [facility] [address] [place] [address] Hospitalist Progress Note Signed Patient: Gopal Yates Jr MR#: [id number] : 1965 Acct:[id number] Age/Sex: 56 / M Adm Date: 3 Loc: Room: [address] [place] [address] Type: ADM IN Attending Dr: Salvador Alonso MD Copies to: ~ Date of Service: 05/22/2022 Subjective Subjective Narrative: Patient seen and examined. Patient underwent surgery yesterday. Complaining ofburning sensation in the right foot which is expected from the surgery. Denies any other complaints Exam Physical Exam Vital Signs: Temp Pulse Resp BP Pulse Ox O2 Del Method 98.0 F 68 16 148/73 H 95 Room Air 05/22/22 11:33 05/22/22 11:33 05/22/22 11:33 05/22/22 11:33 05/22/22 11:33 05/22/22 11:33 Narrative: General: Awake, alert, oriented x3 not in acute distress HEENT: Normocephalic, atraumatic, PERRLA, normal mucosa Cardiovascular: Regular rate and rhythm , S1-S2 heard, no murmurs or gallops Lungs: No wheezing or rhonchi heard Gastrointestinal: Soft, nontender, bowel sounds heard Extremities: Right foot dressing dry and intact Neurological: no sensory or motor deficit Skin: Dry and warm, no rashes or lesions Psych: Normal mood and affect Objective Lab Results 05/22/22 05:56 05/22/22 05:56 Microbiology Results Microbiology 05/21/22 18:37 Foot,Right - Ulcer Aerobic Culture - Preliminary No Growth 1 Day 05/21/22 18:37 Foot,Right - Ulcer Anaerobic Culture - Preliminary No Anaerobes Isolated 1 Day 05/21/22 18:37 Foot,Right - Ulcer Gram Stain - Final 05/20/22 11:28 Toe,Right Fifth - Abscess Superficial Wound Culture - Final Light Normal Skin Efren 2 Days 05/20/22 11:12 Blood - Left Antecubital Blood Culture - Preliminary No Growth 2 Days 05/20/22 11:00 Blood - Left Antecubital Blood Culture - Preliminary No Growth 2 Days Meds Allergies and Active Meds Allergies Sulfa (Sulfonamide Antibiotics) Allergy (Verified 05/20/22 10:10) Hives Active Meds: Active Medications Generic Name Dose Route Start Last Admin Trade Name Bishnu PRN Reason Stop Dose Admin Acetaminophen 650 mg 05/20/22 13:40 05/22/22 06:05 Acetaminophen 325 Mg Tablet PO 05/20/23 13:39 650 mg Q6H PRN Administration Pain Scale 1 - 3 or fever Bumetanide 2 mg 05/21/22 09:00 05/22/22 08:34 Bumetanide 2 Mg Tablet PO 05/21/23 08:59 2 mg DAILY REDD Administration Carvedilol 37.5 mg 05/20/22 17:00 05/22/22 08:34 Carvedilol 12.5 Mg Tablet PO 05/20/23 16:59 37.5 mg BID.WITH.MEALS REDD Administration Cyproheptadine HCl 4 mg 05/21/22 09:00 05/22/22 08:33 Cyproheptadine 4 Mg Tablet PO 05/21/23 08:59 4 mg DAILY REDD Administration Ezetimibe 10 mg 05/21/22 09:00 05/22/22 08:34 Ezetimibe 10 Mg Tablet PO 05/21/23 08:59 10 mg DAILY REDD Administration Hydralazine HCl 50 mg 05/20/22 14:00 05/22/22 08:34 Hydralazine 50 Mg Tablet PO 05/20/23 13:59 50 mg TID REDD Administration Piperacillin Sod/Tazobactam Sod 2.25 gm in 100 mls @ 200 mls/hr 05/21/22 11:30 05/22/22 11:31 Zosyn 2.25gm IV 200 mls/hr Q6H REDD Administration Insulin Glargine 16 units 05/21/22 09:00 05/22/22 08:34 Insulin Glargine 300 Units/3 Ml Insuln.Pen SUBCUT 05/21/23 08:59 16 units QAM [facility] Administration Isosorbide Dinitrate 10 mg 05/20/22 14:00 05/22/22 08:34 Isosorbide Dinitrate 10 Mg Tablet PO 05/20/23 13:59 10 mg TID [facility] Administration Levothyroxine Sodium 100 mcg 05/21/22 06:30 05/22/22 06:05 Levothyroxine 100 Mcg Tablet PO 05/21/23 06:29 100 mcg DAILY@0630 REDD Administration Liothyronine Sodium 10 mcg 05/21/22 09:00 05/22/22 08:33 Liothyronine 5 Mcg Tablet PO 05/21/23 08:59 10 mcg DAILY REDD Administration Multivitamins 1 tab 05/21/22 09:00 05/22/22 08:33 Multivitamin 1 Tab Tablet PO 05/21/23 08:59 1 tab DAILY [facility] Administration Nifedipine 30 mg 05/20/22 21:00 05/22/22 08:34 Nifedipine Er.24hr 30 Mg Tab.Er.24 PO 05/20/23 20:59 30 mg BID REDD Administration Ondansetron HCl 4 mg 05/20/22 13:40 Ondansetron 4 Mg/2 Ml Vial IV-PUSH 05/20/23 13:39 Q8H PRN Nausea And Vomiting Oxycodone HCl 5 mg 05/20/22 13:40 Oxycodone Ir 5 Mg Tablet PO Q6H PRN Pain Scale 4 - 7 Pantoprazole Sodium 40 mg 05/20/22 21:00 05/22/22 08:34 Pantoprazole 40 Mg Tablet.Dr PO 05/20/23 20:59 40 mg BID REDD Administration Potassium Chloride 40 meq 05/20/22 13:40 Potassium Chloride Er 20 Meq Tab.Er.Prt PO 05/20/23 13:39 DAILY PRN Hypokalemia Sodium Bicarbonate 1,300 mg 05/20/22 21:00 05/22/22 08:33 Sodium Bicarbonate 650 Mg Tablet PO 05/20/23 20:59 1,300 mg BID REDD Administration Sodium Chloride 0 ml 05/20/22 10:10 05/22/22 06:50 Sodium Chloride 0.9 % 10 Ml Syringe IV-PUSH 05/20/23 10:09 10 ml PRN PRN Administration Flush Vancomycin HCl 1 each 05/20/22 13:45 Vancomycin - Pharmacy Dosing 1 Each Miscell IV ONCE PRN ZZ.Pharmacy Consult Protocol Vitamin D 50 mcg 05/21/22 09:00 05/22/22 08:33 Cholecalciferol 25 Mcg (1,000 Units) Tablet PO 05/21/23 08:59 50 mcg DAILY REDD Administration A&P - Hospitalist Assessment/Plan (1) Osteomyelitis of right foot: (2) Ulcer of right foot with necrosis of bone: (3) Diabetic foot ulcer with osteomyelitis: (4) Hypertensive kidney disease with chronic kidney disease stage V: Plan S/p right foot fourth digit amputation and revision of fifth metatarsal amputation with I&D to the right foot Patient is hemodynamically stable and is afebrile, saturating 96% on room air X-ray right foot showed osteopenia along the lateral margin of the distal fourthmetatarsal suspicious for osteomyelitis, subcutaneous emphysema in the lateral soft tissues of the right foot suspicious for cellulitis with underlying abscess Labs showed no leukocytosis, hemoglobin 8.4 Kidney functions at baseline, nephrology following Infectious disease on board. Cultures showed no growth so far. Continue IV antibiotics. Patient will need PICC line and IV antibiotics on discharge DVT prophylaxis CODE STATUS full code Documented By: Salvador Alonso MD 05/22/22 6041 Signed By: <Electronically signed by Salvador Alonso MD> 05/22/[address] [facility] Work Phone: [phone] Progress note Author Cristobal Butts [facility] May 22, 2022 1:15pm Note Date/Time May 22, 2022 1:16 pm [facility] [address] [place] [address] Nephrology Progress Note Signed Patient: Gopal Yates Jr MR#: [id number] : 1965 Acct:[id number] Age/Sex: 56 / M Adm Date: 3 Loc: Room: [address] [place] [address] Type: ADM IN Attending Dr: Salvador Alonso MD Copies to: ~ Date of Service: 05/22/2022 Subjective Subjective Narrative: This is 56-year-old male patient with a past medical history of chronic kidney disease stage V from diabetic and hypertensive nephropathy follows with me in renal office. Coronary artery disease with history of myocardial infarction, heart failure with reduced ejection fraction, hyperlipidemia, insulin-dependent diabetes mellitus and hypothyroidism. Patient was referred to the hospital by his podiatric physician for worsening right lateral foot ulcer. Patient had recent partial fifth ray amputation of his right foot. Patient was discharged to finish antibiotics. Foot MRI from yesterday showed edema in the head of the second metatarsal as well as the proximal and middle phalanx of the fourth digitsuspicious for osteomyelitis. Edema is also noted at the fourth transmetatarsaljunction suspicious for osteomyelitis. There is also marrow edema affecting thehead of the third metatarsal as well as the proximal phalanx of the third digit suspicious for osteomyelitis. There is evidence of ulceration along the lateralsoft tissues of the right foot with subcutaneous emphysema. There is a fluid collection along the interspace between the heads of the third and the fourth metatarsal suspicious for abscess formation. There is diffuse soft tissue swelling consistent with cellulitis. Patient is scheduled for OR today at 5:30 for possible more amputation with I&D. Currently on vancomycin IV. Renal team is consulted for CKD management. Last office visit with me was March 2022 when he was referred to vascular surgeon for PD catheter placement which was supposed to be done next week. Patient has been following with hematology clinic here in [facility] for CAROL injection. Patient missed her last appointment. Hemoglobin this morning 7.7 g deciliter. Kidney function remains at baseline with today serum creatinine 5.2 mmol/L and GFR 11 mm/min. BUN 72. Potassium 4.0. Serum bicarb 20 Interval history: Patient was seen and examined in his room. Patient had right fourth toe amputated with I&D of right foot abscess done earlier today. Still on antibiotics vancomycin and Zosyn. Waiting on OR culture to finalize antibiotics. Patient denied nausea vomiting. No abdominal pain. No chest pain. No shortness of breath. No diarrhea. No cough. No fever Exam Physical Exam Vital Signs: Temp Pulse Resp BP Pulse Ox O2 Del Method 98.0 F 68 16 148/73 H 95 Room Air 05/22/22 11:33 05/22/22 11:33 05/22/22 11:33 05/22/22 11:33 05/22/22 11:05/22/22 11:33 Narrative: General: No acute distress Head :atraumatic normocephalic Eyes: PERRLA. Significant pallor Neck: no JVD no bruit. Heart: S1-S2. RRR Respiratory: Clear to auscultation. No wheezing. No crackles Abdomen: Soft, positive bowel sounds,no tenderness. Neurology: Awake alert oriented x3. No focal deficits Extremity. No cyanosis. Trace edema of right lower extremity. Left foot is wrapped by gauze Skin: No skin rash Objective Intake and Output I&O: Intake & Output 05/19/22 05/20/22 05/21/22 05/22/22 23:59 23:59 23:59 23:59 Intake Total 1040 / 1040 900 / 900 340 / 340 Output Total 400 / 400 901 / 901 800 / 800 Balance 640 / 640 -1 / -1 -460 / -460 Weight 84.4 kg 84.4 kg 84.6 kg Meds and Allergies Meds: Active Medications Acetaminophen (Acetaminophen 325 Mg Tablet) 650 mg PO Q6H PRN PRN Reason: Pain Scale 1 - 3 or fever Stop: 05/20/23 13:39 Last Admin: 05/22/22 06:05 Dose: 650 mg Bumetanide (Bumetanide 2 Mg Tablet) 2 mg PO DAILY REDD Stop: 05/21/23 08:59 Last Admin: 03/03/23 08:34 Dose: 2 mg Carvedilol (Carvedilol 12.5 Mg Tablet) 37.5 mg PO BID.WITH.MEALS [facility] Stop: 05/20/23 16:59 Last Admin: 05/22/22 08:34 Dose: 37.5 mg Cyproheptadine HCl (Cyproheptadine 4 Mg Tablet) 4 mg PO DAILY [facility] Stop: 05/21/23 08:59 Last Admin: 05/22/22 08:33 Dose: 4 mg Ezetimibe (Ezetimibe 10 Mg Tablet) 10 mg PO DAILY REDD Stop: 05/21/23 08:59 Last Admin: 05/22/22 08:34 Dose: 10 mg Hydralazine HCl (Hydralazine 50 Mg Tablet) 50 mg PO TID [facility] Stop: 05/20/23 13:59 Last Admin: 05/22/22 08:34 Dose: 50 mg Piperacillin Sod/Tazobactam Sod (Zosyn 2.25gm) 2.25 gm in 100 mls @ 200 mls/hr IV Q6H [facility] Last Admin: 05/22/22 11:31 Dose: 200 mls/hr Lactated Ringer's (Lactated Ringers) 1,000 mls @ 20 mls/hr IV .Q24H [facility] Stop: 05/22/22 13:54 Last Admin: 05/21/22 15:44 Dose: 20 mls/hr Insulin Glargine (Insulin Glargine 300 Units/3 Ml Insuln.Pen) 16 units SUBCUT QAM [facility] Stop: 05/21/23 08:59 Last Admin: 05/22/22 08:34 Dose: 16 units Isosorbide Dinitrate (Isosorbide Dinitrate 10 Mg Tablet) 10 mg PO TID [facility] Stop: 05/20/23 13:59 Last Admin: 05/22/22 08:34 Dose: 10 mg Levothyroxine Sodium (Levothyroxine 100 Mcg Tablet) 100 mcg PO DAILY@0630 [facility] Stop: 05/21/23 06:29 Last Admin: 05/22/22 06:05 Dose: 100 mcg Liothyronine Sodium (Liothyronine 5 Mcg Tablet) 10 mcg PO DAILY [facility] Stop: 05/21/23 08:59 Last Admin: 05/22/22 08:33 Dose: 10 mcg Multivitamins (Multivitamin 1 Tab Tablet) 1 tab PO DAILY [facility] Stop: 05/21/23 08:59 Last Admin: 05/22/22 08:33 Dose: 1 tab Nifedipine (Nifedipine Er.24hr 30 Mg Tab.Er.24) 30 mg PO BID [facility] Stop: 05/20/23 20:59 Last Admin: 05/22/22 08:34 Dose: 30 mg Ondansetron HCl (Ondansetron 4 Mg/2 Ml Vial) 4 mg IV-PUSH Q8H PRN PRN Reason: Nausea And Vomiting Stop: 05/20/23 13:39 Oxycodone HCl (Oxycodone Ir 5 Mg Tablet) 5 mg PO Q6H PRN PRN Reason: Pain Scale 4 - 7 Pantoprazole Sodium (Pantoprazole 40 Mg Tablet.Dr) 40 mg PO BID [facility] Stop: 05/20/23 20:59 Last Admin: 05/22/22 08:34 Dose: 40 mg Potassium Chloride (Potassium Chloride Er 20 Meq Tab.Er.Prt) 40 meq PO DAILY PRN PRN Reason: Hypokalemia Stop: 05/20/23 13:39 Sodium Bicarbonate (Sodium Bicarbonate 650 Mg Tablet) 1,300 mg PO BID [facility] Stop: 05/20/23 20:59 Last Admin: 05/22/22 08:33 Dose: 1,300 mg Sodium Chloride (Sodium Chloride 0.9 % 10 Ml Syringe) 0 ml IV-PUSH PRN PRN PRN Reason: Flush Stop: 05/20/23 10:09 Last Admin: 05/22/22 06:50 Dose: 10 ml Vancomycin HCl (Vancomycin - Pharmacy Dosing 1 Each Miscell) 1 each IV ONCE PRN; Protocol PRN Reason: ALBERTA.Pharmacy Consult Vitamin D (Cholecalciferol 25 Mcg (1,000 Units) Tablet) 50 mcg PO DAILY [facility] Stop: 05/21/23 08:59 Last Admin: 05/22/22 08:33 Dose: 50 mcg Allergies Sulfa (Sulfonamide Antibiotics) Allergy (Verified 05/20/22 10:10) Hives Results Labs 05/22/22 05:56 05/22/22 05:56 Labs: 05/21/22 05/22/22 08:07 05:56 BUN 69 H Creatinine 4.75 H Phosphorus 4.5 Iron Saturation 19.2 L Ferritin 757.4 H Albumin 1.7 L Radiology Impressions Impressions - last 24 hours: Any impression(s) listed above is documentation that was entered by the reading physician into a diagnostic report(s) for Gopal Yates Jr. I have reviewed the report(s) and am incorporating any findings in the treatment plan of this patient where applicable. A&P - Nephrology Assessment/Plan (1) CKD (chronic kidney disease) stage 5, GFR less than 15 ml/min: Plan: Patient has advanced CKD from diabetic nephropathy. Patient follows with me in the renal office. Last visit was March 2022 when he was referred to general surgery for PD catheter placement which supposed to be done next week. Kidney function remains at baseline. There is no urgent need to start hemodialysis. Iwill continue to monitor renal function panel while he is on antibiotics. Please keep vancomycin level between 15 and 20 to avoid tubular injury. Avoid NSAIDs for pain control. Avoid IV contrast. Continue oral sodium bicarb. Check renal function panel in the morning (2) Diabetes mellitus with diabetic neuropathy: Plan: Patient has insulin-dependent diabetes mellitus. Currently he is on insulin glargine 16 units daily. I do not see insulin covering the meals. I will deferdiabetes measurement to the primary service (3) Hypertensive kidney disease with chronic kidney disease stage V: Plan: Blood pressure seems well controlled. Volume status is well controlled 2. Patient is on Bumex, Coreg, hydralazine, nifedipine. I will continue to monitorblood pressure and adjust medications as needed (4) Anemia of renal disease: Plan: Patient has anemia from CKD. Patient has been following with hematology clinic here in [facility]. Patient missed the last appointment. Patient received 1 unit of RBC yesterday. Patient also was given 1 dose of Epogen 20,000 units May 21 Continue to monitor H&H (5) Osteomyelitis of right foot: Plan: Right foot MRI findings as as in HPI. Patient currently covered by vancomycin and Zosyn IV. Status post amputation of the right fourth toe with I&D of right foot abscess. Patient likely need wound VAC placement. Pediatric service is following Documented By: Cristobal Butts MD 05/22/22 1311 Signed By: <Electronically signed by Cristobal Butts MD> 05/22/22 2087 [facility] Work Phone: [phone] Progress note Author Ashutosh Thomas [facility] May 22, 2022 12:21pm Note Date/Time May 22, 2022 12:2 1pm [facility] [address] [place] [address] Infect. Disease Progress Note Signed Patient: Gopal Yates Jr MR#: [id number] : 1965 Acct:[id number] Age/Sex: 56 / M Adm Date: 3 Loc: 3T Room: [address] [place] [address] Type: ADM IN Attending Dr: Salvador Alonso MD Copies to: ~ Date of Service: 05/22/2022 Subjective Interval history: Tolerated surgery yesterday and is doing well this morning. Denies any new complaints. Exam Physical Exam Vital Signs: Temp Pulse Resp BP Pulse Ox O2 Del Method 98.0 F 68 16 148/73 H 95 Room Air 05/22/22 11:33 05/22/22 11:33 05/22/22 11:33 05/22/22 11:33 05/22/22 11:33 05/22/22 11:33 Const General: cooperative, healthy appearing, comfortable and no acute distress HEENT Head: normal to inspection, normocephalic and atraumatic Ears: hearing grossly normal bilaterally Eyes Visual Holden: normal visual holden by confrontation Conjunctivae: conjunctivae normal Sclera: sclerae normal EOM: EOM intact bilaterally Neck Neck: normal visual inspection, full ROM and no lymphadenopathy Chest Chest palpation & inspection: normal inspection of the chest Resp Effort & Inspection: normal respiratory effort and able to speak in complete sentences Auscultation: clear to auscultation bilaterally Cardio Rate: regular rate Rhythm: regular rhythm Heart Sounds: S1 normal and S2 normal GI Inspection: normal to inspection, no edema and non-distended Palpation: soft Skin General: no rashes or lesions noted Neuro General: patient alert, patient awake, patient oriented x3 and moves all extremities Extrem General: no clubbing, cyanosis or edema and no calf tenderness Other: Right foot now with surgical bandage in place. Psych Appearance: grossly normal Mental Status: mental status grossly normal Objective Labs CBC/BMP: CBC, BMP 05/22/22 05/22/22 05:56 05:56 Corrected WBC 8.7 Uncorrected WBC Count 8.7 RBC 3.17 L Hgb 8.6 L Hct 25.9 L Plt Count 174 Sodium 131 L Potassium 4.3 Chloride 103 Carbon Dioxide 19.9 L Anion Gap 12.4 BUN 69 H Creatinine 4.75 H Calcium 7.5 L Labs: 05/22/22 05:56 BUN 69 H Creatinine 4.75 H Microbiology Microbiology: Microbiology - Results from entire visit 05/20/22 11:28 Toe,Right Fifth - Abscess Superficial Wound Culture - Final Light Normal Skin Efren 2 Days 05/20/22 11:12 Blood - Left Antecubital Blood Culture - Preliminary No Growth 2 Days 05/20/22 11:00 Blood - Left Antecubital Blood Culture - Preliminary No Growth 2 Days Allergies and Medications Allergies and Active Meds Allergies Sulfa (Sulfonamide Antibiotics) Allergy (Verified 05/20/22 10:10) Hives Active Medications Acetaminophen (Acetaminophen 325 Mg Tablet) 650 mg PO Q6H PRN PRN Reason: Pain Scale 1 - 3 or fever Stop: 05/20/23 13:39 Last Admin: 05/22/22 06:05 Dose: 650 mg Bumetanide (Bumetanide 2 Mg Tablet) 2 mg PO DAILY [facility] Stop: 05/21/23 08:59 Last Admin: 05/22/22 08:34 Dose: 2 mg Carvedilol (Carvedilol 12.5 Mg Tablet) 37.5 mg PO BID.WITH.MEALS [facility] Stop: 05/20/23 16:59 Last Admin: 05/22/22 08:34 Dose: 37.5 mg Cyproheptadine HCl (Cyproheptadine 4 Mg Tablet) 4 mg PO DAILY [facility] Stop: 05/21/23 08:59 Last Admin: 05/22/22 08:33 Dose: 4 mg Ezetimibe (Ezetimibe 10 Mg Tablet) 10 mg PO DAILY [facility] Stop: 05/21/23 08:59 Last Admin: 05/22/22 08:34 Dose: 10 mg Hydralazine HCl (Hydralazine 50 Mg Tablet) 50 mg PO TID [facility] Stop: 05/20/23 13:59 Last Admin: 05/22/22 08:34 Dose: 50 mg Piperacillin Sod/Tazobactam Sod (Zosyn 2.25gm) 2.25 gm in 100 mls @ 200 mls/hr IV Q6H [facility] Last Admin: 05/22/22 11:31 Dose: 200 mls/hr Lactated Ringer's (Lactated Ringers) 1,000 mls @ 20 mls/hr IV .Q24H [facility] Stop: 05/22/22 13:54 Last Admin: 05/21/22 15:44 Dose: 20 mls/hr Vancomycin HCl 1.25 gm/ (Dextrose) 275 mls @ 183.333 mls/hr IV ONCE ONE Stop: 05/22/22 12:59 Insulin Glargine (Insulin Glargine 300 Units/3 Ml Insuln.Pen) 16 units SUBCUT QAM [facility] Stop: 05/21/23 08:59 Last Admin: 05/22/22 08:34 Dose: 16 units Isosorbide Dinitrate (Isosorbide Dinitrate 10 Mg Tablet) 10 mg PO TID [facility] Stop: 05/20/23 13:59 Last Admin: 05/22/22 08:34 Dose: 10 mg Levothyroxine Sodium (Levothyroxine 100 Mcg Tablet) 100 mcg PO DAILY@0630 [facility] Stop: 05/21/23 06:29 Last Admin: 05/22/22 06:05 Dose: 100 mcg Liothyronine Sodium (Liothyronine 5 Mcg Tablet) 10 mcg PO DAILY [facility] Stop: 05/21/23 08:59 Last Admin: 05/22/22 08:33 Dose: 10 mcg Multivitamins (Multivitamin 1 Tab Tablet) 1 tab PO DAILY [facility] Stop: 05/21/23 08:59 Last Admin: 05/22/22 08:33 Dose: 1 tab Nifedipine (Nifedipine Er.24hr 30 Mg Tab.Er.24) 30 mg PO BID [facility] Stop: 05/20/23 20:59 Last Admin: 05/22/22 08:34 Dose: 30 mg Ondansetron HCl (Ondansetron 4 Mg/2 Ml Vial) 4 mg IV-PUSH Q8H PRN PRN Reason: Nausea And Vomiting Stop: 05/20/23 13:39 Oxycodone HCl (Oxycodone Ir 5 Mg Tablet) 5 mg PO Q6H PRN PRN Reason: Pain Scale 4 - 7 Pantoprazole Sodium (Pantoprazole 40 Mg Tablet.Dr) 40 mg PO BID [facility] Stop: 05/20/23 20:59 Last Admin: 05/22/22 08:34 Dose: 40 mg Potassium Chloride (Potassium Chloride Er 20 Meq Tab.Er.Prt) 40 meq PO DAILY PRN PRN Reason: Hypokalemia Stop: 05/20/23 13:39 Sodium Bicarbonate (Sodium Bicarbonate 650 Mg Tablet) 1,300 mg PO BID REDD Stop: 05/20/23 20:59 Last Admin: 05/22/22 08:33 Dose: 1,300 mg Sodium Chloride (Sodium Chloride 0.9 % 10 Ml Syringe) 0 ml IV-PUSH PRN PRN PRN Reason: Flush Stop: 05/20/23 10:09 Last Admin: 05/22/22 06:50 Dose: 10 ml Vancomycin HCl (Vancomycin - Pharmacy Dosing 1 Each Miscell) 1 each IV ONCE PRN; Protocol PRN Reason: ZZ.Pharmacy Consult Vitamin D (Cholecalciferol 25 Mcg (1,000 Units) Tablet) 50 mcg PO DAILY [facility]D Stop: 05/21/23 08:59 Last Admin: 05/22/22 08:33 Dose: 50 mcg A&P - Infectious Disease Assessment/Plan (1) Osteomyelitis of right foot: Code(s): M86.9 - Osteomyelitis, unspecified Status: Acute (2) Diabetic foot ulcer with osteomyelitis: Code(s): E11.621 - Type 2 diabetes mellitus with foot ulcer; E11.69 - Type 2 diabetes mellitus with other specified complication; L97.509 - Non-pressure chronic ulcerof other part of unspecified foot with unspecified severity; M86.9 - Osteomyelitis, unspecified Status: Acute (3) Type 2 diabetes mellitus with diabetic chronic kidney disease: Code(s): E11.22 - Type 2 diabetes mellitus with diabetic chronic kidney disease Status: Acute (4) CKD (chronic kidney disease) stage 5, GFR less than 15 ml/min: Code(s): N18.5 - Chronic kidney disease, stage 5 Status: Acute Plan Status post surgery on his foot but per my discussion with Dr. Cade yesterday there is concerned that residual osteomyelitis may still be present and that therefore IV antibiotics will be planned for outpatient. PICC line will be ordered. Previous cultures from bone biopsy had only Bacteroides fragilis. Newcultures are pending. Currently on vancomycin and Zosyn. If no new pathogens identified with plan ertapenem for antibiotic choice. Patient does not necessarily have to wait in the hospital for these cultures to result as he is asking to go however PICC line was just ordered and antibiotics have to be arranged for home. Documented By: Ashutosh Thomas MD 05/22/22 1218 Signed By: <Electronically signed by MD Ashutosh Thomas> 05/22/[address] [facility] Work Phone: 1(260) 282-984203-03-2023 Progress note Author Eddy Griggs [facility] May 22, 2022 8:23am Note Date/Time May 22, 2022 8:18 am [facility] [address] [place] [address] Podiatry Progress Note Signed Patient: Gopal Yates Jr MR#: [id number] : 1965 Acct:[id number] Age/Sex: 56 / M Adm Date: 3 Loc: Room: [address] [place] [address] Type: ADM IN Attending Dr: Salvador Alonso MD Copies to: ~ Subjective Subjective Date of Service: Date of Service: 05/22/2022 Time of Service: 08:15 Narrative: Mr. Yates is a 56 year old male being seen at this time for POD #1 right foot 4th toe amputation, debridement and pulse lavage as well as I&D abscess right foot. He states that he has a mild stinging pain to the foot, but otherwise no pain. Denies any N/V/D/F/C. Patient seems understand the need to completely offload right foot he understands need for elevation of foot. Patient understands he is a very complicated patient with multiple comorbidities that are brought him to this level of pathology and surgery and will also obviously impair healing. He is very pleasant individual with diabetes mellitus, neuropathy and advanced renal disease as well unfortunately. Osteomyelitis is led to the amputation of partial right foot as documented previously. Exam Physical Exam Vital Signs: Temp Pulse Resp BP Pulse Ox O2 Del Method 98.0 F 68 16 148/73 H 95 Room Air 05/22/22 04:00 05/22/22 04:00 05/22/22 04:00 05/22/22 04:00 05/22/22 04:00 05/22/22 04:00 Narrative: Patient is awake alert and orient x3 resting comfortably in bed. Nurses presentthrough part of the examination. Dressing is intact right foot without any drainage coming through. The dressing was removed: Vascular examination shows that pulses appear to be intact and capillary refill less than 2 seconds skin is warm. Neurological examination: Neuropathy right lower extremity including motor, autonomic, sensory types: Nonpainful on examination removal of packing/dressings. Muscle skeletal examination: Right lower extremity weakness noted to toes however patient is able to dorsiflex/plantarflex right foot and ankle. Dermatology examination: Incision site to the lateral right foot is well copated. There is an open defect to the lateral foot proximal 5th metatarsal region with deep tissue and remiaing bone to the right 5th metatarsal exposed. There is no active pustular drainage to the right foot with milking. No malodornoted. Area of depth along the lateral foot toward the 3rd MPJ appears healthy with no active drainage. Cellulitis to the right foot does appear to be improving. Orthopedic: amputation of the right 5th ray and 4th toe Radiology examination: X-ray 05-20-2022 reveals amputation obviously of the fifth toe and right fifth metatarsal partial base is intact. Appears to be possible osteomyelitis right fourth metatarsal region and fourth toe to a lesser degree. I have reviewed the film I agree with the reading. MRI read final result is still pending. Assessment/Plan (1) Osteomyelitis of right foot: Plan: Patient is s/p right foot 4th digit amputation and revision of 5th metatarsal amputation with I&D to the right foot. He is doing well with pain. Prior cultures from hospitalization 2 weeks ago did grow an anarobe and final culture pending from the right foot surgery culture. I do feel that the patient would benefit from a course of IV antibiotics due to the concern for osteomyelitis to the right 3rd and 4th metatarsals based on MRI but patient is a difficult ase due to his renal function. ID is on board and we will wait their recommendations in regards to antibiotics. Patient will need wound VAC ordered/applied to the right foot. It has been very difficult getting [facility] secured for the patient due to his insurance. He again states that he would like to go to the [facility] center in order to have dressing changes, but Ipersonally called after his last hospitalization and due to their short staffingthey were not offering this service at this time. I advised that if we are not able to find a [facility] agency, patient may need to come to the infusion center for dresssing changes, but that does affect his healing due to the fact that he is going to be traveling with his foot down and this can affect his healing. We will wait on final OR cultures and try to arrange HHC prior to d/c. Podiatry will continue to follow. Code(s): M86.9 - Osteomyelitis, unspecified (2) Ulcer of right foot with necrosis of bone: Code(s): L97.514 - Non-pressure chronic ulcer of other part of right foot with necrosis of bone (3) Diabetic foot ulcer with osteomyelitis: Code(s): E11.621 - Type 2 diabetes mellitus with foot ulcer; E11.69 - Type 2 diabetes mellitus with other specified complication; L97.509 - Non-pressure chronic ulcerof other part of unspecified foot with unspecified severity; M86.9 - Osteomyelitis, unspecified (4) Type 2 diabetes mellitus with diabetic chronic kidney disease: Code(s): E11.22 - Type 2 diabetes mellitus with diabetic chronic kidney disease (5) Hypertensive kidney disease with chronic kidney disease stage V: Code(s): I12.0 - Hypertensive chronic kidney disease with stage 5 chronic kidney disease or end stage renal disease; N18.5 - Chronic kidney disease, stage 5 (6) Anemia of renal disease: Code(s): N18.9 - Chronic kidney disease, unspecified; D63.1 - Anemia in chronic kidney disease (7) CKD (chronic kidney disease) stage 5, GFR less than 15 ml/min: Code(s): N18.5 - Chronic kidney disease, stage 5 (8) Surgical wound present: Code(s): T14.8XXA - Other injury of unspecified body region, initial encounter (9) Diabetes mellitus with diabetic neuropathy: Code(s): E11.40 - Type 2 diabetes mellitus with diabetic neuropathy, unspecified Documented By: Eddy Griggs DPM 05/22/22 15 Signed By: <Electronically signed by HARRY Griggs> 05/22/22822 [facility] Work Phone: [phone]) 427-764003-03-2023 Progress note Author [facility] May 21, 2022 11:00pm Note Date/Time May 21, 2022 11:0 0pm [facility] [address] [place] [address] Hospitalist Progress Note Signed Patient: Gpoal Yates Jr MR#: [id number] : 1965 Acct:[id number] Age/Sex: 56 / M Adm Date: 3 Loc: 3T Room: [address] [place] [address] Type: ADM IN Attending Dr: Salvador Alonso MD Copies to: ~ Date of Service: 05/21/2022 Subjective Subjective Narrative: Patient seen and examined. He is scheduled to have surgery today in the evening. Complaining of pain in his right foot but is well-tolerated with pain medication. He is hemodynamically stable and is afebrile Exam Physical Exam Vital Signs: Temp Pulse Resp BP Pulse Ox O2 Del Method 97.9 F 63 16 140/65 96 Room Air 05/21/22 16:40 05/21/22 16:40 05/21/22 16:40 05/21/22 16:40 05/21/22 16:40 05/21/22 12:00 Narrative: General: Awake, alert, oriented x3 not in acute distress HEENT: Normocephalic, atraumatic, PERRLA, normal mucosa Cardiovascular: Regular rate and rhythm , S1-S2 heard, no murmurs or gallops Lungs: No wheezing or rhonchi heard Gastrointestinal: Soft, nontender, bowel sounds heard Extremities: Right foot dressing dry and intact Neurological: no sensory or motor deficit Skin: Dry and warm, no rashes or lesions Psych: Normal mood and affect Objective Lab Results 05/21/22 06:31 05/21/22 06:31 Microbiology Results Microbiology 05/20/22 11:28 Toe,Right Fifth - Abscess Superficial Wound Culture - Preliminary Light Normal Skin Efren 1 Day 05/20/22 11:12 Blood - Left Antecubital Blood Culture - Preliminary No Growth 1 Day 05/20/22 11:00 Blood - Left Antecubital Blood Culture - Preliminary No Growth 1 Day Meds Allergies and Active Meds Allergies Sulfa (Sulfonamide Antibiotics) Allergy (Verified 05/20/22 10:10) Hives Active Meds: Active Medications Generic Name Dose Route Start Last Admin Trade Name Freq PRN Reason Stop Dose Admin Acetaminophen 650 mg 05/20/22 13:40 Acetaminophen 325 Mg Tablet PO 05/20/23 13:39 Q6H PRN Pain Scale 1 - 3 or fever Bumetanide 2 mg 05/21/22 09:00 05/21/22 08:00 Bumetanide 2 Mg Tablet PO 05/21/23 08:59 Not Given DAILY [facility] Carvedilol 37.5 mg 05/20/22 17:00 05/21/22 19:39 Carvedilol 12.5 Mg Tablet PO 05/20/23 16:59 Not Given BID.WITH.MEALS [facility] Cyproheptadine HCl 4 mg 05/21/22 09:00 05/21/22 08:00 Cyproheptadine 4 Mg Tablet PO 05/21/23 08:59 Not Given DAILY [facility] Ezetimibe 10 mg 05/21/22 09:00 05/21/22 08:00 Ezetimibe 10 Mg Tablet PO 05/21/23 08:59 Not Given DAILY [facility] Hydralazine HCl 50 mg 05/20/22 14:00 05/21/22 22:25 Hydralazine 50 Mg Tablet PO 05/20/23 13:59 50 mg TID [facility] Administration Sodium Chloride 500 mls @ 20 mls/hr 05/21/22 08:33 0.9 % Sodium Chloride IV 05/22/22 08:32 PROTOCOL PRN BLOOD TRANSFUSION Piperacillin Sod/Tazobactam Sod 2.25 gm in 100 mls @ 200 mls/hr 05/21/22 11:30 05/21/22 22:30 Zosyn 2.25gm IV 200 mls/hr Q6H [facility] Administration Lactated Ringer's 1,000 mls @ 20 mls/hr 05/21/22 13:55 05/21/22 15:44 Lactated Ringers IV 05/22/22 13:54 20 mls/hr .Q24H ONE Administration Insulin Glargine 16 units 05/21/22 09:00 05/21/22 08:00 Insulin Glargine 300 Units/3 Ml Insuln.Pen SUBCUT 05/21/23 08:59 Not Given QAM [facility] Isosorbide Dinitrate 10 mg 05/20/22 14:00 05/21/22 22:25 Isosorbide Dinitrate 10 Mg Tablet PO 05/20/23 13:59 10 mg TID [facility] Administration Levothyroxine Sodium 100 mcg 05/21/22 06:30 05/21/22 06:20 Levothyroxine 100 Mcg Tablet PO 05/21/23 06:29 100 mcg DAILY@0630 [facility] Administration Liothyronine Sodium 10 mcg 05/21/22 09:00 05/21/22 08:00 Liothyronine 5 Mcg Tablet PO 05/21/23 08:59 Not Given DAILY [facility] Multivitamins 1 tab 05/21/22 09:00 05/21/22 08:00 Multivitamin 1 Tab Tablet PO 05/21/23 08:59 Not Given DAILY [facility] Nifedipine 30 mg 05/20/22 21:00 05/21/22 22:25 Nifedipine Er.24hr 30 Mg Tab.Er.24 PO 05/20/23 20:59 30 mg BID [facility] Administration Ondansetron HCl 4 mg 05/20/22 13:40 Ondansetron 4 Mg/2 Ml Vial IV-PUSH 05/20/23 13:39 Q8H PRN Nausea And Vomiting Oxycodone HCl 5 mg 05/20/22 13:40 Oxycodone Ir 5 Mg Tablet PO Q6H PRN Pain Scale 4 - 7 Pantoprazole Sodium 40 mg 05/20/22 21:00 05/21/22 22:25 Pantoprazole 40 Mg Tablet.Dr PO 05/20/23 20:59 40 mg BID [facility] Administration Potassium Chloride 40 meq 05/20/22 13:40 Potassium Chloride Er 20 Meq Tab.Er.Prt PO 05/20/23 13:39 DAILY PRN Hypokalemia Sodium Bicarbonate 1,300 mg 05/20/22 21:00 05/21/22 22:25 Sodium Bicarbonate 650 Mg Tablet PO 05/20/23 20:59 1,300 mg BID [facility] Administration Sodium Chloride 0 ml 05/20/22 10:10 05/21/22 22:25 Sodium Chloride 0.9 % 10 Ml Syringe IV-PUSH 05/20/23 10:09 10 ml PRN PRN Administration Flush Vancomycin HCl 1 each 05/20/22 13:45 Vancomycin - Pharmacy Dosing 1 Each Miscell IV ONCE PRN ZZ.Pharmacy Consult Protocol Vitamin D 50 mcg 05/21/22 09:00 05/21/22 08:00 Cholecalciferol 25 Mcg (1,000 Units) Tablet PO 05/21/23 08:59 Not Given DAILY [facility] A&P - Hospitalist Assessment/Plan (1) Osteomyelitis of right foot: (2) Ulcer of right foot with necrosis of bone: (3) Diabetic foot ulcer with osteomyelitis: (4) Hypertensive kidney disease with chronic kidney disease stage V: Plan Patient scheduled for surgery today Patient is hemodynamically stable and is afebrile, saturating 96% on room air X-ray right foot showed osteopenia along the lateral margin of the distal fourthmetatarsal suspicious for osteomyelitis, subcutaneous emphysema in the lateral soft tissues of the right foot suspicious for cellulitis with underlying abscess Labs showed no leukocytosis, hemoglobin 7.6, will transfuse 1 unit of PRBC. Kidney functions at baseline, nephrology following Infectious disease on board. Cultures pending. Added Zosyn as recent cultures were positive for Bacteroides. Continue vancomycin Continue home meds DVT prophylaxis CODE STATUS full code Documented By: Salvador Alonso MD 05/21/22 3899 Signed By: <Electronically signed by Salvador Alonso MD> 05/21/[address] [facility] Work Phone: [phone]) [phone] Consult note Author Cristobal Butts [facility] May 21, 2022 1:27pm Note Date/Time May 21, 2022 1:27 pm [facility] [address] [place] [address] Nephrology Consult Note Signed Patient: Gopal Yates Jr MR#: [id number] : 1965 Acct:[id number] Age/Sex: 56 / M Adm Date: 3 Loc: Room: [address] [place] [address] Type: ADM IN Attending Dr: Salvador Alonso MD Copies to: MD Cristobal Boles MD Douglas M Hoy, MD~ Providers Consult Date: 05/21/22 Requesting Provider: Salvador Alonso MD Primary Care Provider: Douglas Juárez MD HPI Reason for Consult: Chronic kidney disease stage V History of Present Illness: This is 56-year-old male patient with a past medical history of chronic kidney disease stage V from diabetic and hypertensive nephropathy follows with me in renal office. Coronary artery disease with history of myocardial infarction, heart failure with reduced ejection fraction, hyperlipidemia, insulin-dependent diabetes mellitus and hypothyroidism. Patient was referred to the hospital by his podiatric physician for worsening right lateral foot ulcer. Patient had recent partial fifth ray amputation of his right foot. Patient was discharged to finish antibiotics. Foot MRI from yesterday showed edema in the head of the second metatarsal as well as the proximal and middle phalanx of the fourth digitsuspicious for osteomyelitis. Edema is also noted at the fourth transmetatarsaljunction suspicious for osteomyelitis. There is also marrow edema affecting thehead of the third metatarsal as well as the proximal phalanx of the third digit suspicious for osteomyelitis. There is evidence of ulceration along the lateralsoft tissues of the right foot with subcutaneous emphysema. There is a fluid collection along the interspace between the heads of the third and the fourth metatarsal suspicious for abscess formation. There is diffuse soft tissue swelling consistent with cellulitis. Patient is scheduled for OR today at 5:30 for possible more amputation with I&D. Currently on vancomycin IV. Renal team is consulted for CKD management. Last office visit with me was March 2022 when he was referred to vascular surgeon for PD catheter placement which was supposed to be done next week. Patient has been following with hematology clinic here in [facility] for CAROL injection. Patient missed her last appointment. Hemoglobin this morning 7.7 g deciliter. Kidney function remains at baseline with today serum creatinine 5.2 mmol/L and GFR 11 mm/min. BUN 72. Potassium 4.0. Serum bicarb 20 Review of Systems Review of Systems Review of systems: 12 system review is negative today PMFSH Vaccinated for COVID-19?: Yes Medical History Anemia CHF (congestive heart failure) CKD (chronic kidney disease) Diabetes type 2, controlled Hypertension Wound of foot Surgical History History of heart artery stent 2019 Hx of cardiac cath 2019 Family History Father Heart attack Heart failure Mother Breast cancer Social History Smoking Status: Former smoker Tobacco Type: cigarettes Substance Use Type: None Meds Medications & Allergies Allergies Sulfa (Sulfonamide Antibiotics) Allergy (Verified 05/20/22 10:10) Hives Home Medications aspirin 81 mg tablet,delayed release 81 mg PO DAILY 05/05/22 [History Confirmed 05/20/22] bumetanide 2 mg tablet 2 mg PO DAILY 05/05/22 [History Confirmed 05/20/22] carvedilol 25 mg tablet 37.5 mg PO BID 05/05/22 [History Confirmed 05/20/22] cholecalciferol (vitamin D3) 50 mcg (2,000 unit) capsule (Vitamin D3) 50 mcg PO DAILY 05/05/22 [History Confirmed 05/20/22] ezetimibe 10 mg tablet 10 mg PO DAILY 05/05/22 [History Confirmed 05/20/22] hydralazine 50 mg tablet 50 mg PO TID 05/05/22 [History Confirmed 05/20/22] insulin aspart U-100 100 unit/mL (3 mL) subcutaneous pen See Rx Instructions .Route .COMPLEX 05/05/22 [History Confirmed 05/20/22] insulin glargine 100 unit/mL subcutaneous solution (Lantus U-100 Insulin) 16 unit subcut QAM 05/05/22 [History Confirmed 05/20/22] isosorbide dinitrate 10 mg tablet 10 mg PO TID 05/05/22 [History Confirmed 05/20/22] levothyroxine 100 mcg tablet 100 mcg PO DAILY 05/05/22 [History Confirmed 05/20/22] multivitamin 1 tab PO DAILY 05/05/22 [History Confirmed 05/20/22] nifedipine 30 mg tablet,extended release 24 hr 30 mg PO BID 05/05/22 [History Confirmed 05/20/22] omeprazole 40 mg capsule,delayed release 40 mg PO BID 05/05/22 [History Confirmed 05/20/22] amoxicillin 500 mg-potassium clavulanate 125 mg tablet (Augmentin) 1 tab PO BID 14 days #28 tabs 05/08/22 [Rx Confirmed 05/20/22] sodium bicarbonate 650 mg tablet 1,300 mg PO BID 30 days #120 tabs 05/08/22 [Rx Confirmed 05/20/22] cyproheptadine 4 mg tablet 4 mg PO DAILY 05/20/22 [History Confirmed 05/20/22] liothyronine 5 mcg tablet 10 mcg PO DAILY 05/20/22 [History Confirmed 05/20/22] Active Medications: Active Medications Acetaminophen (Acetaminophen 325 Mg Tablet) 650 mg PO Q6H PRN PRN Reason: Pain Scale 1 - 3 or fever Stop: 05/20/23 13:39 Bumetanide (Bumetanide 2 Mg Tablet) 2 mg PO DAILY [facility] Stop: 05/21/23 08:59 Last Admin: 05/21/22 08:00 Dose: Not Given Carvedilol (Carvedilol 12.5 Mg Tablet) 37.5 mg PO BID.WITH.MEALS [facility] Stop: 05/20/23 16:59 Last Admin: 05/21/22 07:52 Dose: 37.5 mg Cyproheptadine HCl (Cyproheptadine 4 Mg Tablet) 4 mg PO DAILY [facility] Stop: 05/21/23 08:59 Last Admin: 05/21/22 08:00 Dose: Not Given Ezetimibe (Ezetimibe 10 Mg Tablet) 10 mg PO DAILY [facility] Stop: 05/21/23 08:59 Last Admin: 05/21/22 08:00 Dose: Not Given Hydralazine HCl (Hydralazine 50 Mg Tablet) 50 mg PO TID [facility] Stop: 05/20/23 13:59 Last Admin: 05/21/22 08:00 Dose: Not Given Sodium Chloride (0.9 % Sodium Chloride) 500 mls @ 20 mls/hr IV PROTOCOL PRN PRN Reason: BLOOD TRANSFUSION Stop: 05/22/22 08:32 Piperacillin Sod/Tazobactam Sod (Zosyn 2.25gm) 2.25 gm in 100 mls @ 200 mls/hr IV Q6H [facility] Last Admin: 05/21/22 11:18 Dose: 200 mls/hr Insulin Glargine (Insulin Glargine 300 Units/3 Ml Insuln.Pen) 16 units SUBCUT QAM [facility] Stop: 05/21/23 08:59 Last Admin: 05/21/22 08:00 Dose: Not Given Isosorbide Dinitrate (Isosorbide Dinitrate 10 Mg Tablet) 10 mg PO TID [facility] Stop: 05/20/23 13:59 Last Admin: 05/21/22 08:00 Dose: Not Given Levothyroxine Sodium (Levothyroxine 100 Mcg Tablet) 100 mcg PO DAILY@0630 [facility] Stop: 05/21/23 06:29 Last Admin: 05/21/22 06:20 Dose: 100 mcg Liothyronine Sodium (Liothyronine 5 Mcg Tablet) 10 mcg PO DAILY [facility] Stop: 05/21/23 08:59 Last Admin: 05/21/22 08:00 Dose: Not Given Multivitamins (Multivitamin 1 Tab Tablet) 1 tab PO DAILY [facility] Stop: 05/21/23 08:59 Last Admin: 05/21/22 08:00 Dose: Not Given Nifedipine (Nifedipine Er.24hr 30 Mg Tab.Er.24) 30 mg PO BID [facility] Stop: 05/20/23 20:59 Last Admin: 05/21/22 08:01 Dose: Not Given Ondansetron HCl (Ondansetron 4 Mg/2 Ml Vial) 4 mg IV-PUSH Q8H PRN PRN Reason: Nausea And Vomiting Stop: 05/20/23 13:39 Oxycodone HCl (Oxycodone Ir 5 Mg Tablet) 5 mg PO Q6H PRN PRN Reason: Pain Scale 4 - 7 Pantoprazole Sodium (Pantoprazole 40 Mg Tablet.Dr) 40 mg PO BID [facility] Stop: 05/20/23 20:59 Last Admin: 05/21/22 08:01 Dose: Not Given Potassium Chloride (Potassium Chloride Er 20 Meq Tab.Er.Prt) 40 meq PO DAILY PRN PRN Reason: Hypokalemia Stop: 05/20/23 13:39 Sodium Bicarbonate (Sodium Bicarbonate 650 Mg Tablet) 1,300 mg PO BID [facility] Stop: 05/20/23 20:59 Last Admin: 05/21/22 08:01 Dose: Not Given Sodium Chloride (Sodium Chloride 0.9 % 10 Ml Syringe) 0 ml IV-PUSH PRN PRN PRN Reason: Flush Stop: 05/20/23 10:09 Last Admin: 05/20/22 15:57 Dose: 10 ml Vancomycin HCl (Vancomycin - Pharmacy Dosing 1 Each Miscell) 1 each IV ONCE PRN; Protocol PRN Reason: ZHeather.Pharmacy Consult Vitamin D (Cholecalciferol 25 Mcg (1,000 Units) Tablet) 50 mcg PO DAILY [facility] Stop: 05/21/23 08:59 Last Admin: 05/21/22 08:00 Dose: Not Given Exam Physical Exam Vital Signs: Temp Pulse Resp BP Pulse Ox O2 Del Method 98.2 F 65 16 139/69 96 Room Air 05/21/22 13:05 05/21/22 13:05 05/21/22 13:05 05/21/22 13:05 05/21/22 13:05 05/21/22 07:59 Narrative: General: No acute distress Head :atraumatic normocephalic Eyes: PERRLA. Significant pallor Neck: no JVD no bruit. Heart: S1-S2. RRR Respiratory: Clear to auscultation. No wheezing. No crackles Abdomen: Soft, positive bowel sounds,no tenderness. Neurology: Awake alert oriented x3. No focal deficits Extremity. No cyanosis. Trace edema of right lower extremity. Left foot is wrapped by gauze Skin: No skin rash Results Labs 05/21/22 06:31 05/21/22 06:31 Labs: 05/21/22 06:31 BUN 72 H Creatinine 5.24 H Phosphorus 5.3 H Albumin 1.7 L Radiology Impressions Impressions - last 24 hours: Impressions Foot MRI 05/20/22 19:33 IMPRESSION: There is edema in the head of the second metatarsal as well as the proximal and middle phalanx of the fourth digit suspicious for osteomyelitis. Edema is also noted at the fourth tarsometatarsal junction suspicious for osteomyelitis. There is marrow edema affecting the head of the third metatarsal as well as the proximal phalanx of the third digit suspicious for osteomyelitis. There is evidence of ulceration along the lateral soft tissues of the right footwith subcutaneous emphysema. There is also a fluid collection along the interspace between the heads of the third and fourth metatarsals suspicious for abscess formation. There is diffuse soft tissue swelling consistent with cellulitis. There is edema throughout the intrinsic musculature suggesting myositis. Impression dictated by: Flynn Bradley M.D.05/21/2022 10:03 AM Dictation Location: [place] [address] Any impression(s) listed above is documentation that was entered by the reading physician into a diagnostic report(s) for Gopal Yates Jr. I have reviewed the report(s) and am incorporating any findings in the treatment plan of this patient where applicable. A&P - Nephrology Assessment/Plan (1) CKD (chronic kidney disease) stage 5, GFR less than 15 ml/min: Plan: Patient has advanced CKD from diabetic nephropathy. Patient follows with me in the renal office. Last visit was March 2022 when he was referred to general surgery for PD catheter placement which supposed to be done next week. Kidney function remains at baseline. There is no urgent need to start hemodialysis. Iwill continue to monitor renal function panel while he is on antibiotics. Please keep vancomycin level between 15 and 20 to avoid tubular injury. Avoid NSAIDs for pain control. Avoid IV contrast. Continue oral sodium bicarb. Check renal function panel in the morning (2) Diabetes mellitus with diabetic neuropathy: Plan: Patient has insulin-dependent diabetes mellitus. Currently he is on insulin glargine 16 units daily. I do not see insulin covering the meals. I will deferdiabetes measurement to the primary service (3) Hypertensive kidney disease with chronic kidney disease stage V: Plan: Blood pressure seems well controlled. Volume status is well controlled 2. Patient is on Bumex, Coreg, hydralazine, nifedipine. I will continue to monitorblood pressure and adjust medications as needed (4) Anemia of renal disease: Plan: Patient has anemia from CKD. Patient has been following with hematology clinic here in [facility]. Patient missed the last appointment. Patient is going toreceive 1 unit of RBCs today before surgery. I will check iron storage study. I will give the patient 1 dose of Epogen 20,000 units. Continue to monitor H&H (5) Osteomyelitis of right foot: Plan: Right foot MRI findings as as in HPI. Patient currently covered by vancomycin IV. Scheduled for OR today at 5:30 PM Documented By: Cristobal Butts MD 05/21/22 1315 Signed By: <Electronically signed by Cristobal Butts MD> 05/21/[address] [facility] Work Phone: 1(888) 183-725103-02-2023 Consult note Author PHILLIP Luis [facility] May 21, 2022 12:02pm Note Date/Time May 21, 2022 11:5 8am [facility] [address] [place] [address] Podiatry Consult Note Signed Patient: Gopal Yates Jr MR#: [id number] : 1965 Acct:[id number] Age/Sex: 56 / M Adm Date: 3 Loc: Room: [address] [place] [address] Type: ADM IN Attending Dr: Salvador Alonso MD Copies to: MD Douglas Boles MD Eugene R Kubitz,DPM, MS, CWS~ HPI Data of Consult Consult Date: 05/20/22 Requesting Physician: Salvador Alonso MD Primary Care Provider: Douglas Juárez MD Consult Narrative Reason for consult: Infected right foot History of present illness: Mr. Yates is a 56 year old male being seen at this time for consultation regarding infected right foot which is worsened and has been draining. He had been seen and treated in April by my partner Dr. Griggs who had performed partial amputation of the right fifth toe and fifth metatarsal approximately 05-07-2022. Patient was seen yesterday in the office and was sent to the emergency room per Dr. Griggs for admission and return to the operating room. Please note at the time of my consult late last evening there was no MRI report finalized. Patient denies fevers, chills, nausea, vomiting, sweats, diarrhea, chest pain, calf pain, injuries or trauma to right foot. Patient seems understand the need to completely offload right foot he understands need for elevation of foot. Patient understands he is a very complicated patient with multiple comorbidities that are brought him to this level of pathology and surgery and will also obviously impair healing. He is very pleasant individual with diabetes mellitus, neuropathy and advanced renal disease as well unfortunately. Osteomyelitis is led to the amputation of partial right foot as documented previously. Review of Systems Review of Systems All other systems reviewed & are negative unless noted below or in HPI PMFSH Vaccinated for COVID-19?: Yes Medical History Anemia CHF (congestive heart failure) CKD (chronic kidney disease) Diabetes type 2, controlled Hypertension Wound of foot Surgical History History of heart artery stent 2019 Hx of cardiac cath 2019 Family History Father Heart attack Heart failure Mother Breast cancer Social History Smoking Status: Former smoker Tobacco Type: cigarettes Substance Use Type: None Meds Medications and Allergies Allergies Sulfa (Sulfonamide Antibiotics) Allergy (Verified 05/20/22 10:10) Hives Home Medications aspirin 81 mg tablet,delayed release 81 mg PO DAILY 05/05/22 [History Confirmed 05/20/22] bumetanide 2 mg tablet 2 mg PO DAILY 05/05/22 [History Confirmed 05/20/22] carvedilol 25 mg tablet 37.5 mg PO BID 05/05/22 [History Confirmed 05/20/22] cholecalciferol (vitamin D3) 50 mcg (2,000 unit) capsule (Vitamin D3) 50 mcg PO DAILY 05/05/22 [History Confirmed 05/20/22] ezetimibe 10 mg tablet 10 mg PO DAILY 05/05/22 [History Confirmed 05/20/22] hydralazine 50 mg tablet 50 mg PO TID 05/05/22 [History Confirmed 05/20/22] insulin aspart U-100 100 unit/mL (3 mL) subcutaneous pen See Rx Instructions .Route .COMPLEX 05/05/22 [History Confirmed 05/20/22] insulin glargine 100 unit/mL subcutaneous solution (Lantus U-100 Insulin) 16 unit subcut QAM 05/05/22 [History Confirmed 05/20/22] isosorbide dinitrate 10 mg tablet 10 mg PO TID 05/05/22 [History Confirmed 05/20/22] levothyroxine 100 mcg tablet 100 mcg PO DAILY 05/05/22 [History Confirmed 05/20/22] multivitamin 1 tab PO DAILY 05/05/22 [History Confirmed 05/20/22] nifedipine 30 mg tablet,extended release 24 hr 30 mg PO BID 05/05/22 [History Confirmed 05/20/22] omeprazole 40 mg capsule,delayed release 40 mg PO BID 05/05/22 [History Confirmed 05/20/22] amoxicillin 500 mg-potassium clavulanate 125 mg tablet (Augmentin) 1 tab PO BID 14 days #28 tabs 05/08/22 [Rx Confirmed 05/20/22] sodium bicarbonate 650 mg tablet 1,300 mg PO BID 30 days #120 tabs 05/08/22 [Rx Confirmed 05/20/22] cyproheptadine 4 mg tablet 4 mg PO DAILY 05/20/22 [History Confirmed 05/20/22] liothyronine 5 mcg tablet 10 mcg PO DAILY 05/20/22 [History Confirmed 05/20/22] Exam Physical Exam Vital Signs: Temp Pulse Resp BP Pulse Ox O2 Del Method 97.9 F 68 16 148/72 H 95 Room Air 05/21/22 07:59 05/21/22 07:59 05/21/22 07:59 05/21/22 07:59 05/21/22 07:59 05/21/22 07:59 Narrative: Patient is awake alert and orient x3 resting comfortably in bed. Nurses presentthrough part of the examination. Dressing is intact right foot without any drainage coming through. The dressing was removed: Vascular examination shows that pulses appear to be intact and capillary refill less than 2 seconds skin is warm. Neurological examination: Neuropathy right lower extremity including motor, autonomic, sensory types: Nonpainful on examination removal of packing/dressings. Muscle skeletal examination: Right lower extremity weakness noted to toes however patient is able to dorsiflex/plantarflex right foot and ankle. He was not taking out of bed for weightbearing examination or gait evaluation at this point as the dressing was removed and foot was open. Orthopedic examination: Recent osteomyelitis to the lateral right foot required amputation of right fifth toe and fifth metatarsal almost to the base of the fifth metatarsal which appears to be intact per radiographic examination. Thereis a large defect in this location which will be documented as part of the dermatology/wound examination section. There does not appear to be any exposed bone at this level though definitely there is concern as there is infection. Dermatology examination/surgical wound right lateral foot: Large defect noted status post amputation of right fifth toe and partial fifth metatarsal from previous surgeon. Measurements are noted in patient's nursing section. Patientfoot does show infection in terms of mild erythema however it and there is drainage coming from the packing serosanguineous drainage as well as purulence from the lateral right fourth toe. The right fourth toe most likely would not be salvageable most likely have to be amputated. Examination from proximal to distal revealed no significant amount of purulence though there may be underlying abscess is not appreciated at this time please note MRI is pending. Radiology examination: X-ray 05-20-2022 reveals amputation obviously of the fifth toe and right fifth metatarsal partial base is intact. Appears to be possible osteomyelitis right fourth metatarsal region and fourth toe to a lesser degree. I have reviewed the film I agree with the reading. MRI read final result is still pending. Culture: Right foot surgical wound drainage: Pending 05-20-2022. Results Labs 05/21/22 06:31 05/21/22 06:31 ESR 88 mm/hr (0-19) H 05/20/22 11:35 Microbiology Microbiology: Microbiology - Results from entire visit 05/20/22 11:12 Blood - Left Antecubital Blood Culture - Preliminary No Growth 1 Day 05/20/22 11:00 Blood - Left Antecubital Blood Culture - Preliminary No Growth 1 Day Assessment/Plan (1) Osteomyelitis of right foot: Plan: 1. Patient seen today for consultation. 2. Physical examination was performed. 3. Patient's chart was reviewed. 4. Patient was advised at this time that x-rays are showing what appears to be possible fourth metatarsal osteomyelitis and fourth toe definitely does not looksalvageable I would recommend amputation of right fourth toe. However please note MRI is pending results should be available soon to direct more definitive diagnoses and preoperative planning. 5. Patient was advised at this time about wound care which will be performed daily until further notice please see orders. 6. Patient will be n.p.o. as of 8 AM 05-21-2022 with planned surgical debridementof surgical wound right lateral foot, amputation of right fourth toe. We discussed possibility, pending MRI of final reading, of bone biopsies as well asmore proximal amputation done at this time we would obviously attempt to salvageas much foot as possible. We will proceed with antibiotic lavage as well as packing as there is no way to close this large defect laterally. Possibly once infection is controlled wound vacuum would be of great assistance. 7. Patient was advised he is a very serious condition and limb salvage is in question is a high risk for amputation due to multiple comorbidities and patientvoiced complete understanding and acceptance. 8. Patient has a very good understanding of his pathologies as well as his needfor offloading right foot completely, elevation of right foot above heart level,avoid dependency, increase low-fat oral protein for nutritional assistance as well. 9. Thanks for consultation. Code(s): M86.9 - Osteomyelitis, unspecified (2) Ulcer of right foot with necrosis of bone: Code(s): L97.514 - Non-pressure chronic ulcer of other part of right foot with necrosis of bone (3) Diabetic foot ulcer with osteomyelitis: Code(s): E11.621 - Type 2 diabetes mellitus with foot ulcer; E11.69 - Type 2 diabetes mellitus with other specified complication; L97.509 - Non-pressure chronic ulcerof other part of unspecified foot with unspecified severity; M86.9 - Osteomyelitis, unspecified (4) Type 2 diabetes mellitus with diabetic chronic kidney disease: Code(s): E11.22 - Type 2 diabetes mellitus with diabetic chronic kidney disease (5) Hypertensive kidney disease with chronic kidney disease stage V: Code(s): I12.0 - Hypertensive chronic kidney disease with stage 5 chronic kidney disease or end stage renal disease; N18.5 - Chronic kidney disease, stage 5 (6) Anemia of renal disease: Code(s): N18.9 - Chronic kidney disease, unspecified; D63.1 - Anemia in chronic kidney disease (7) CKD (chronic kidney disease) stage 5, GFR less than 15 ml/min: Code(s): N18.5 - Chronic kidney disease, stage 5 (8) Surgical wound present: Code(s): T14.8XXA - Other injury of unspecified body region, initial encounter (9) Diabetes mellitus with diabetic neuropathy: Code(s): E11.40 - Type 2 diabetes mellitus with diabetic neuropathy, unspecified Documented By: Primo Luis,HARRY, , CWS 05/14 1153 Signed By: <Electronically signed by HARRY Luis> 05/21/[address] [facility] Work Phone: [phone]) 456-788803-02-2023 Consult note Author Ashutosh Thomas [facility] May 21, 2022 10:40am Note Date/Time May 21, 2022 10:0 4am [facility] [address] [place] [address] Infect. Disease Consult Note Signed Patient: Gopal Yates Jr MR#: [id number] : 1965 Acct:[id number] Age/Sex: 56 / M Adm Date: 3 Loc: Room: [address] [place] [address] Type: ADM IN Attending Dr: Salvador Alonso MD Copies to: MD Douglas Boles MD Michael S Blank, MD~ HPI Data of Consult Consult date: 05/21/22 Requesting Physician: Salvador Alonso MD Primary Care Provider: Douglas Juárez MD Consult Narrative Reason for consult: Osteomyelitis of the right foot History of present illness: Mr. Yates is a 56 year old male who was sent to the ED yesterday by his plastics sheet finishing press operator, Dr. Griggs, because his right foot wound continued to show signs of infection. The patient recently had resection of his right fifth digit on 05/07 and completed a 10-day course of Augmentin. The patient states that his wound continued to drain after the operation and that his plastics sheet finishing press operator has scheduled surgery for today. He continues on IV vancomycin, which was started in the ED. 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 He is allergic to sulfa. The patient reports no symptoms currently. Denies fever, chills, night sweats, nausea, and vomiting. He has been afebrile during the course of his stay. White blood cell count 9.2/7.0. MRI of the right foot has been performed and the final report is pending. Preliminary wound cultures from 05/19 show no growth and blood cultures from 05/20 are pending. CC: Salvador Alonso MD Review of Systems Review of Systems All other systems reviewed & are negative unless noted below or in HPI PMFSH Vaccinated for COVID-19?: Yes Medical History Anemia CHF (congestive heart failure) CKD (chronic kidney disease) Diabetes type 2, controlled Hypertension Wound of foot Surgical History History of heart artery stent 2019 Hx of cardiac cath 2019 Family History Father Heart attack Heart failure Mother Breast cancer Social History Smoking Status: Former smoker Tobacco Type: cigarettes Substance Use Type: None Allergies and Medications Allergies and Active Meds Allergies Sulfa (Sulfonamide Antibiotics) Allergy (Verified 05/20/22 10:10) Hives Active Medications Acetaminophen (Acetaminophen 325 Mg Tablet) 650 mg PO Q6H PRN PRN Reason: Pain Scale 1 - 3 or fever Stop: 05/20/23 13:39 Bumetanide (Bumetanide 2 Mg Tablet) 2 mg PO DAILY REDD Stop: 05/21/23 08:59 Last Admin: 05/21/22 08:00 Dose: Not Given Carvedilol (Carvedilol 12.5 Mg Tablet) 37.5 mg PO BID.WITH.MEALS REDD Stop: 05/20/23 16:59 Last Admin: 05/21/22 07:52 Dose: 37.5 mg Cyproheptadine HCl (Cyproheptadine 4 Mg Tablet) 4 mg PO DAILY [facility] Stop: 05/21/23 08:59 Last Admin: 05/21/22 08:00 Dose: Not Given Ezetimibe (Ezetimibe 10 Mg Tablet) 10 mg PO DAILY [facility] Stop: 05/21/23 08:59 Last Admin: 05/21/22 08:00 Dose: Not Given Hydralazine HCl (Hydralazine 50 Mg Tablet) 50 mg PO TID [facility] Stop: 05/20/23 13:59 Last Admin: 05/21/22 08:00 Dose: Not Given Sodium Chloride (0.9 % Sodium Chloride) 500 mls @ 20 mls/hr IV PROTOCOL PRN PRN Reason: BLOOD TRANSFUSION Stop: 05/22/22 08:32 Insulin Glargine (Insulin Glargine 300 Units/3 Ml Insuln.Pen) 16 units SUBCUT QAM [facility] Stop: 05/21/23 08:59 Last Admin: 05/21/22 08:00 Dose: Not Given Isosorbide Dinitrate (Isosorbide Dinitrate 10 Mg Tablet) 10 mg PO TID [facility] Stop: 05/20/23 13:59 Last Admin: 05/21/22 08:00 Dose: Not Given Levothyroxine Sodium (Levothyroxine 100 Mcg Tablet) 100 mcg PO DAILY@0630 [facility] Stop: 05/21/23 06:29 Last Admin: 05/21/22 06:20 Dose: 100 mcg Liothyronine Sodium (Liothyronine 5 Mcg Tablet) 10 mcg PO DAILY [facility] Stop: 05/21/23 08:59 Last Admin: 05/21/22 08:00 Dose: Not Given Multivitamins (Multivitamin 1 Tab Tablet) 1 tab PO DAILY [facility] Stop: 05/21/23 08:59 Last Admin: 05/21/22 08:00 Dose: Not Given Nifedipine (Nifedipine Er.24hr 30 Mg Tab.Er.24) 30 mg PO BID [facility] Stop: 05/20/23 20:59 Last Admin: 05/21/22 08:01 Dose: Not Given Ondansetron HCl (Ondansetron 4 Mg/2 Ml Vial) 4 mg IV-PUSH Q8H PRN PRN Reason: Nausea And Vomiting Stop: 05/20/23 13:39 Oxycodone HCl (Oxycodone Ir 5 Mg Tablet) 5 mg PO Q6H PRN PRN Reason: Pain Scale 4 - 7 Pantoprazole Sodium (Pantoprazole 40 Mg Tablet.Dr) 40 mg PO BID [facility] Stop: 05/20/23 20:59 Last Admin: 05/21/22 08:01 Dose: Not Given Potassium Chloride (Potassium Chloride Er 20 Meq Tab.Er.Prt) 40 meq PO DAILY PRN PRN Reason: Hypokalemia Stop: 05/20/23 13:39 Sodium Bicarbonate (Sodium Bicarbonate 650 Mg Tablet) 1,300 mg PO BID [facility] Stop: 05/20/23 20:59 Last Admin: 05/21/22 08:01 Dose: Not Given Sodium Chloride (Sodium Chloride 0.9 % 10 Ml Syringe) 0 ml IV-PUSH PRN PRN PRN Reason: Flush Stop: 05/20/23 10:09 Last Admin: 05/20/22 15:57 Dose: 10 ml Vancomycin HCl (Vancomycin - Pharmacy Dosing 1 Each Miscell) 1 each IV ONCE PRN; Protocol PRN Reason: ZHeather.Pharmacy Consult Vitamin D (Cholecalciferol 25 Mcg (1,000 Units) Tablet) 50 mcg PO DAILY [facility] Stop: 05/21/23 08:59 Last Admin: 05/21/22 08:00 Dose: Not Given Exam Physical Exam Vital Signs: Temp Pulse Resp BP Pulse Ox O2 Del Method 97.9 F 68 16 148/72 H 95 Room Air 05/21/22 07:59 05/21/22 07:59 05/21/22 07:59 05/21/22 07:59 05/21/22 07:59 05/21/22 07:59 Const General: cooperative, healthy appearing, comfortable and no acute distress HEENT Head: normal to inspection, normocephalic and atraumatic Ears: hearing grossly normal bilaterally Eyes Visual Holden: normal visual holden by confrontation Conjunctivae: conjunctivae normal Sclera: sclerae normal EOM: EOM intact bilaterally Neck Neck: normal visual inspection, full ROM and no lymphadenopathy Chest Chest palpation & inspection: normal inspection of the chest Resp Effort & Inspection: normal respiratory effort and able to speak in complete sentences Auscultation: clear to auscultation bilaterally Cardio Rate: regular rate Rhythm: regular rhythm Heart Sounds: S1 normal and S2 normal GI Inspection: normal to inspection, no edema and non-distended Palpation: soft Skin General: no rashes or lesions noted Neuro General: patient alert, patient awake, patient oriented x3 and moves all extremities Extrem General: no clubbing, cyanosis or edema and no calf tenderness Other: Right foot currently bandaged. No active signs of cellulitis, warmth, and erythema. Psych Appearance: grossly normal Mental Status: mental status grossly normal Results Labs 05/21/22 06:31 05/21/22 06:31 Labs: 05/20/22 11:35: Corrected WBC 9.2, Uncorrected WBC Count 9.2 05/20/22 11:35: BUN 77 H, Creatinine 5.50 H 05/21/22 06:31: Corrected WBC 7.0, Uncorrected WBC Count 7.0 05/21/22 06:31: BUN 72 H, Creatinine 5.24 H Microbiology Results Microbiology Narrative: 05/20/22 11:28 Superficial Wound Culture - Pending Toe,Right Fifth - Abscess 05/20/22 11:12 Blood Culture - Pending Blood - Left Antecubital 05/20/22 11:00 Blood Culture - Pending Blood - Left Antecubital Imaging and Cardiology Results Comments: MRI: IMPRESSION: ? NONEMERGENT FINDINGS, ALSO SEEN PREVIOUSLY. ? NO ACUTE INTRA-ABDOMINAL OR PELVIC ABNORMALITY. A&P - Infectious Disease (1) Osteomyelitis of right foot: Status: Acute (2) Diabetic foot ulcer with osteomyelitis: Status: Acute (3) Type 2 diabetes mellitus with diabetic chronic kidney disease: Status: Acute (4) CKD (chronic kidney disease) stage 5, GFR less than 15 ml/min: Status: Acute Plan This very pleasant gentleman is showing no active signs of systemic infection. He has been afebrile during the course of his stay. White blood cell count is currently 7.0. Final MRI report of the right foot is pending. Preliminary wound cultures from 05/19 show no growth. Blood cultures from yesterday are pending. The patient is scheduled to have surgery later today. Given Bacteroides organism from last hospital stay will add Zosyn did not cover more encompassing organisms and continue vancomycin Documented By: Ashutosh Thomas MD 05/21/22 4450 Signed By: <Electronically signed by MD Ashutosh Thomas> 05/21/[address] [facility] Work Phone: [phone]) 853-158403-01-2023 History and physical note Author Slavador Alonso [facility] May 20, 2022 2:43pm Note Date/Time May 20, 2022 1:50 pm [facility] [address] [place] [address] Hospitalist H&P Signed Patient: Gopal Yates Jr MR#: [id number] : 1965 Acct:[id number] Age/Sex: 56 / M Adm Date: 3 Loc: Room: [address] [place] [address] Type: ADM IN Attending Dr: Salvador Alonso MD Copies to: MD Douglas Boles MD~ HPI DATE OF EXAMINATION: 05/20/22 CHIEF COMPLAINT: osteomyelits HISTORY OF PRESENT ILLNESS: Mr. 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 Patientrecently was discharged from the hospital on 08/11, he underwent partial right fifth ray amputation on the right foot and was discharged home on oral antibiotics. Patient went to see his foot doctor yesterday when he was found to have worsening ulcer with possible infection. Imaging revealed possible osteomyelitis. Patient was initially scheduled to have surgery today however could not be done because of busy schedule in the OT. Decision made to admit the patient for IV antibiotics and possible surgery tomorrow. Patient states that he has been taking his antibiotics since discharge regularly. noted that patient had some fever yesterday but subsided after receiving Tylenol. He denies any nausea, vomiting, abdominal pain, urinary complaints, respiratory complaints. Review of Systems Review of Systems All other systems reviewed & are negative unless noted below or in HPI PMFSH Vaccinated for COVID-19?: Yes Medical History Anemia CHF (congestive heart failure) CKD (chronic kidney disease) Diabetes type 2, controlled Hypertension Wound of foot Surgical History History of heart artery stent 2019 Hx of cardiac cath 2019 Family History Father Heart attack Heart failure Mother Breast cancer Social History Smoking Status: Never smoker Substance Use Type: None Meds Medications and Allergies Allergies Sulfa (Sulfonamide Antibiotics) Allergy (Verified 05/20/22 10:10) Hives Home Medications aspirin 81 mg tablet,delayed release 81 mg PO DAILY 05/05/22 [History Confirmed 05/20/22] bumetanide 2 mg tablet 2 mg PO DAILY 05/05/22 [History Confirmed 05/20/22] carvedilol 25 mg tablet 37.5 mg PO BID 05/05/22 [History Confirmed 05/20/22] cholecalciferol (vitamin D3) 50 mcg (2,000 unit) capsule (Vitamin D3) 50 mcg PO DAILY 05/05/22 [History Confirmed 05/20/22] ezetimibe 10 mg tablet 10 mg PO DAILY 05/05/22 [History Confirmed 05/20/22] hydralazine 50 mg tablet 50 mg PO TID 05/05/22 [History Confirmed 05/20/22] insulin aspart U-100 100 unit/mL (3 mL) subcutaneous pen See Rx Instructions .Route .COMPLEX 05/05/22 [History Confirmed 05/20/22] insulin glargine 100 unit/mL subcutaneous solution (Lantus U-100 Insulin) 16 unit subcut QAM 05/05/22 [History Confirmed 05/20/22] isosorbide dinitrate 10 mg tablet 10 mg PO TID 05/05/22 [History Confirmed 05/20/22] levothyroxine 100 mcg tablet 100 mcg PO DAILY 05/05/22 [History Confirmed 05/20/22] multivitamin 1 tab PO DAILY 05/05/22 [History Confirmed 05/20/22] nifedipine 30 mg tablet,extended release 24 hr 30 mg PO BID 05/05/22 [History Confirmed 05/20/22] omeprazole 40 mg capsule,delayed release 40 mg PO BID 05/05/22 [History Confirmed 05/20/22] amoxicillin 500 mg-potassium clavulanate 125 mg tablet (Augmentin) 1 tab PO BID 14 days #28 tabs 05/08/22 [Rx Confirmed 05/20/22] sodium bicarbonate 650 mg tablet 1,300 mg PO BID 30 days #120 tabs 05/08/22 [Rx Confirmed 05/20/22] cyproheptadine 4 mg tablet 4 mg PO DAILY 05/20/22 [History Confirmed 05/20/22] liothyronine 5 mcg tablet 10 mcg PO DAILY 05/20/22 [History Confirmed 05/20/22] Exam Physical Exam Vital Signs: Temp Pulse Resp BP Pulse Ox O2 Del Method 98.3 F 71 18 121/67 96 Room Air 05/20/22 13:17 05/20/22 13:17 05/20/22 13:17 05/20/22 13:17 05/20/22 13:17 05/20/22 13:17 Narrative: General: Awake, alert, oriented x3 not in acute distress HEENT: Normocephalic, atraumatic, PERRLA, normal mucosa Cardiovascular: Regular rate and rhythm , S1-S2 heard, no murmurs or gallops Lungs: No wheezing or rhonchi heard Gastrointestinal: Soft, nontender, bowel sounds heard Extremities: Right foot dressing dry and intact Neurological: no sensory or motor deficit Skin: Dry and warm, no rashes or lesions Psych: Normal mood and affect Results Lab Results Labs: Laboratory Last Values Corrected WBC 9.2 X10E3/uL (4.1-10.5) 05/20/22 11:35 Uncorrected WBC Count 9.2 x10E3/uL (4.1-10.5) 05/20/22 11:35 RBC 3.10 X10E6/uL (3.90-5.60) L 05/20/22 11:35 Hgb 8.4 g/dL (13.0-17.0) L 05/20/22 11:35 Hct 25.4 % (38.8-50.0) L 05/20/22 11:35 MCV 81.9 fl (83.5-101) L 05/20/22 11:35 MCH 27.2 pg (27.5-35.2) L 05/20/22 11:35 MCHC 33.2 g/dL (32.5-35.6) 05/20/22 11:35 RDW 14.9 % (12.0-14.8) H 05/20/22 11:35 Plt Count 165 x10E3/uL (150-450) 05/20/22 11:35 MPV 9.3 fl (6.6-10.1) 05/20/22 11:35 Neut % (Auto) 87.0 % (.) 05/20/22 11:35 Lymph % (Auto) 3.3 % (.) 05/20/22 11:35 Edmunds % (Auto) 8.7 % (.) 05/20/22 11:35 Eos % (Auto) 0.2 % (.) 05/20/22 11:35 Baso % (Auto) 0.8 % (.) 05/20/22 11:35 Nucleat RBC Rel Count 0.1 /100 WBC (0-0.5) 05/20/22 11:35 Neut # (Auto) 8.0 x10E3/uL (1.8-7.7) H 05/20/22 11:35 Lymph # (Auto) 0.3 x10E3/uL (1.00-4.8) L 05/20/22 11:35 Edmunds # (Auto) 0.8 x10E3/uL (0.0-0.8) 05/20/22 11:35 Eos # (Auto) 0.0 x10E3/uL (0.0-0.45) 05/20/22 11:35 Baso # (Auto) 0.1 x10E3/uL (0.0-0.2) 05/20/22 11:35 Monocyte Dist Width 21.96 % (0.00-20.00) H 05/20/22 11:35 PT 15.3 Seconds (9.0-12.9) H 05/20/22 11:35 INR 1.3 05/20/22 11:35 APTT 30.7 Seconds (25.1-36.5) 05/20/22 11:35 PHA Creatinine Clear 18.19 05/20/22 11:35 Sodium 132 mmol/L (136-146) L 05/20/22 11:35 Potassium 4.8 mmol/L (3.5-5.1) 05/20/22 11:35 Chloride 101 mmol/L (95-114) 05/20/22 11:35 Carbon Dioxide 19.9 mmol/L (22.0-30.0) L 05/20/22 11:35 Anion Gap 15.9 mEq/L (6.0-15.0) H 05/20/22 11:35 BUN 77 mg/dL (9-23) H 05/20/22 11:35 Creatinine 5.50 mg/dL (0.64-1.27) H 05/20/22 11:35 Est GFR ( Amer) 13 mL/Min 05/20/22 11:35 Est GFR (Non-Af Amer) 11 mL/Min 05/20/22 11:35 Glucose 110 mg/dL (70-100) H 05/20/22 11:35 Lactic Acid 1.8 mmol/L (0.5-2.2) 05/20/22 11:00 Calcium 7.7 mg/dL (8.2-10.2) L 05/20/22 11:35 Total Bilirubin 1.1 mg/dL (0.3-1.2) 05/20/22 11:35 AST 95 U/L (10-42) H 05/20/22 11:35 ALT 64 U/L (10-60) H 05/20/22 11:35 Alkaline Phosphatase 169 U/L (32-92) H 05/20/22 11:35 Total Protein 6.5 gm/dL (6.1-7.9) 05/20/22 11:35 Albumin 1.8 gm/dL (3.2-5.5) L 05/20/22 11:35 Globulin 4.7 gm/dL 05/20/22 11:35 Albumin/Globulin Ratio 0.4 05/20/22 11:35 A&P - Hospitalist Assessment/Plan (1) Osteomyelitis of right foot: (2) Ulcer of right foot with necrosis of bone: (3) Diabetic foot ulcer with osteomyelitis: (4) Hypertensive kidney disease with chronic kidney disease stage V: Plan Patient will be admitted to surgical floor for further evaluation management Patient is hemodynamically stable and is afebrile, saturating 96% on room air X-ray right foot showed osteopenia along the lateral margin of the distal fourthmetatarsal suspicious for osteomyelitis, subcutaneous emphysema in the lateral soft tissues of the right foot suspicious for cellulitis with underlying abscess Labs showed no leukocytosis, hemoglobin 8.4, BUN/creatinine: 37/5.5 Patient scheduled to have PD catheter placement next week. We will consult nephro Consult infectious disease, podiatry Blood cultures, wound culture sent in the ED We will start IV vancomycin Continue home meds DVT prophylaxis CODE STATUS full code Documented By: Salvador Alonso MD 05/20/22 1350 Signed By: <Electronically signed by Salvador Alonso MD> 05/20/[address] [facility] Work Phone: 1(268) 954-649602-17-2023 Progress note Author Yvonne Barboza [facility] May 08, 2022 11:37am Note Date/Time May 08, 2022 11:37am [facility] [address] [place] [address] Nephrology Progress Note Signed Patient: Gopal Yates Jr MR#: [id number] : 1965 Acct:[id number] Age/Sex: 56 / M Adm Date: 3 Loc: 4N Room: [address] [place] [address] Type: ADM IN Attending Dr: Cornelio Simon MD Copies to: ~ Date of Service: 05/08/2022 Subjective Subjective Narrative: This is a 56-year male with multiple comorbidities including CAD s/p PCI, CKD, type 2 insulin-dependent diabetes mellitus, chronic congestive heart failure with preserved EF, hypertension, anemia, dyslipidemia was sent by the podiatristfor worsening right foot ulcer with concern of osteomyelitis. Patient was taking oral antibiotics but despite that he has no improvement in his wound. Patient also has advanced CKD due to the diabetic kidney disease and hypertensive nephrosclerosis. He follows in our office for his CKD care and hisrenal function has been declining due to progression of CKD. He was referred toDr. Kellogg for peritoneal dialysis catheter placement and is scheduled to see him on 05/11/2022. On evaluation emergency room patient was found to have a mild leukocytosis, metabolic acidosis with serum bicarbonate 16.5 mmol/L and abnormal renal function with serum creatinine 6.03 mg/dL. He also noted to haveanemia with hemoglobin 9.3 g/dL. Patient had x-ray of the foot and MRI which showed finding concerning for osteomyelitis. Patient was started on IV antibiotics and podiatry and ID were consulted. Nephrology is consulted for hisCKD and metabolic acidosis management. Interval history Patient was seen and examined at bedside. He denies any chest pain palpitation cough nausea, vomiting, shortness of breath. He underwent a foot surgery yesterday. Exam Physical Exam Vital Signs: Temp Pulse Resp BP Pulse Ox O2 Del Method 97.7 F 62 18 134/69 94 L Room Air 05/08/22 07:29 05/08/22 07:29 05/08/22 07:29 05/08/22 07:29 05/08/22 07:29 05/08/22 08:00 Narrative: General: Appears comfortable and not in distress Heart: S1-S2, no rub Lung: Bilateral air entry, no wheezing or crackles Abdomen: Soft, positive bowel sounds Extremities: No edema, no cyanosis Head: Atraumatic, normocephalic Ear: No gross hearing Deficit or external ear redness Eyes: No pallor or redness Neck: No JVD or visible mass Skin: No rashes or bruises INTELLIGENCE OFFICER: Awake,Alert, 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 Musculoskeletal: No joint swelling or limitation of movement Psychiatric: Cooperative, normal mood and affect Objective Intake and Output I&O: Intake & Output 05/05/22 05/06/22 05/07/22 05/08/22 23:59 23:59 23:59 23:59 Intake Total 350 / 350 1050 / 1050 3100 / 3100 380 / 380 Output Total 310 / 310 310 / 310 700 / 700 Balance 40 / 40 740 / 740 2400 / 2400 380 / 380 Weight 88.5 kg 88.5 kg 88.8 kg 90.718 kg Meds and Allergies Meds: Active Medications Acetaminophen (Acetaminophen 325 Mg Tablet) 650 mg PO Q6HR PRN PRN Reason: Pain Scale 1 - 3 or fever Stop: 05/05/23 16:35 Aspirin (Aspirin 81 Mg Tablet.) 81 mg PO DAILY [facility] Stop: 05/06/23 08:59 Last Admin: 05/06/22 08:25 Dose: 81 mg Bumetanide (Bumetanide 2 Mg Tablet) 2 mg PO DAILY [facility] Stop: 05/06/23 08:59 Last Admin: 05/08/22 08:48 Dose: 2 mg Carvedilol (Carvedilol 12.5 Mg Tablet) 25 mg PO BID [facility] Stop: 05/05/23 20:59 Last Admin: 05/08/22 08:48 Dose: 25 mg Clopidogrel Bisulfate (Clopidogrel Bisulfate 75 Mg Tablet) 75 mg PO DAILY [facility] Stop: 05/06/23 08:59 Last Admin: 05/06/22 08:26 Dose: 75 mg Dextrose (Dextrose 50% In Water 25 Gm/50 Ml Syringe) 0 gm IV-PUSH PRN PRN PRN Reason: Hypoglycemia Stop: 05/05/23 16:33 Ezetimibe (Ezetimibe 10 Mg Tablet) 10 mg PO DAILY [facility] Stop: 05/06/23 08:59 Last Admin: 05/08/22 08:48 Dose: 10 mg Ferrous Sulfate (Ferrous Sulfate 324 Mg Tablet.Dr) 324 mg PO DAILY [facility] Stop: 05/06/23 08:59 Last Admin: 05/08/22 08:48 Dose: 324 mg Glucose (Dextrose 40% Gel 15 Gm Tube) 0 gm PO PRN PRN PRN Reason: Hypoglycemia Stop: 05/05/23 16:33 Heparin Sodium (Porcine) (Heparin 5,000 Unit/Ml Vial) 5,000 unit SUBCUT Q8HR [facility] Stop: 05/06/23 21:59 Last Admin: 05/08/22 05:43 Dose: 5,000 unit Hydralazine HCl (Hydralazine 50 Mg Tablet) 50 mg PO TID [facility] Stop: 05/05/23 21:59 Last Admin: 05/08/22 08:49 Dose: 50 mg Hydromorphone HCl (Hydromorphone 0.5 Mg/0.5 Ml Syringe) 0.5 mg IV-PUSH Q4H PRN PRN Reason: Severe Pain Magnesium Sulfate (Magnesium Sulf 2gm-*Swfi*) 2 gm in 50 mls @ 25 mls/hr IV DAILY PRN PRN Reason: Magnesium Level < 1.7 Stop: 05/05/23 16:35 Ceftaroline Fosamil 300 mg/ (Sodium Chloride) 100 mls @ 200 mls/hr IV Q12H [facility] Stop: 05/06/23 04:59 Last Admin: 05/08/22 04:08 Dose: 200 mls/hr Insulin Aspart (Insulin Aspart 300 Units/3 Ml Insuln.Pen) 0 units SUBCUT TID.WM.HS [facility]; Protocol Stop: 05/05/23 16:59 Last Admin: 05/08/22 08:50 Dose: Not Given Insulin Glargine (Insulin Glargine 300 Units/3 Ml Insuln.Pen) 16 units SUBCUT QAM [facility] Stop: 05/06/23 08:59 Last Admin: 05/08/22 08:50 Dose: Not Given Isosorbide Dinitrate (Isosorbide Dinitrate 10 Mg Tablet) 10 mg PO TID [facility] Stop: 05/05/23 21:59 Last Admin: 05/08/22 08:49 Dose: 10 mg Levothyroxine Sodium (Levothyroxine 100 Mcg Tablet) 100 mcg PO DAILY@0630 [facility] Stop: 05/06/23 06:29 Last Admin: 05/08/22 05:43 Dose: 100 mcg Multivitamins (Multivitamin 1 Tab Tablet) 1 tab PO DAILY [facility] Stop: 05/06/23 08:59 Last Admin: 05/08/22 08:49 Dose: 1 tab Nifedipine (Nifedipine Er.24hr 30 Mg Tab.Er.24) 30 mg PO BID [facility] Stop: 05/05/23 20:59 Last Admin: 05/08/22 08:48 Dose: 30 mg Ondansetron HCl (Ondansetron 4 Mg/2 Ml Vial) 4 mg IV-PUSH Q6H PRN PRN Reason: Nausea And Vomiting Stop: 05/05/23 16:35 Pantoprazole Sodium (Pantoprazole 40 Mg Tablet.Dr) 40 mg PO DAILY [facility] Stop: 05/06/23 08:59 Last Admin: 05/08/22 08:49 Dose: 40 mg Potassium Chloride (Potassium Chloride Er 20 Meq Tab.Er.Prt) 40 meq PO DAILY PRN PRN Reason: Hypokalemia Stop: 05/05/23 16:35 Sodium Bicarbonate (Sodium Bicarbonate 650 Mg Tablet) 1,300 mg PO BID [facility] Stop: 05/08/23 20:59 Sodium Chloride (Sodium Chloride 0.9 % 10 Ml Syringe) 0 ml IV-PUSH PRN PRN PRN Reason: Flush Stop: 05/05/23 11:34 Last Admin: 05/06/22 17:15 Dose: 10 ml Sodium Chloride (Sodium Chloride 0.9 % 10 Ml Syringe) 0 ml IV-PUSH PRN PRN PRN Reason: Flush Stop: 05/05/23 16:35 Vitamin D (Cholecalciferol 25 Mcg (1,000 Units) Tablet) 50 mcg PO DAILY [facility] Stop: 05/06/23 08:59 Last Admin: 05/08/22 08:48 Dose: 50 mcg Allergies Sulfa (Sulfonamide Antibiotics) Allergy (Verified 07/22/21 13:19) Hives Results Labs 05/08/22 04:43 05/08/22 04:43 Labs: 05/08/22 04:43 BUN 80 H Creatinine 5.34 H Radiology Impressions Impressions - last 24 hours: Any impression(s) listed above is documentation that was entered by the reading physician into a diagnostic report(s) for Gopal Kajal Yates Jr. I have reviewed the report(s) and am incorporating any findings in the treatment plan of this patient where applicable. A&P - Nephrology Assessment/Plan (1) CKD (chronic kidney disease) stage 5, GFR less than 15 ml/min: Plan: He has advanced CKD due to the diabetic nephropathy hypertensive nephrosclerosis. His renal function has been declining due to progression of CKD. Patient follows in our office for his CKD care. He is interested in peritoneal dialysis and recently was referred to Dr. Kellogg for PD catheter placement. (2) Metabolic acidosis: Plan: He has metabolic acidosis due to advanced CKD. He was taking sodium bicarbonate at home. (3) Anemia of renal disease: Plan: Hemoglobin is below the goal and has low iron stores. He is currently on oral iron. (4) Hypertensive kidney disease with chronic kidney disease stage V: Plan: Blood pressures controlled. He takes multiple antihypertensive medication including nifedipine, hydralazine, Imdur carvedilol and Bumex. (5) Type 2 diabetes mellitus with diabetic chronic kidney disease: Plan: He has insulin-dependent type 2 diabetes mellitus and was take insulin glargine at home. (6) Diabetic foot ulcer with osteomyelitis: Plan: He presented with diabetic foot infection and was found to have osteomyelitis onMRI. Podiatry and ID has been consulted. Plan * Patient currently denies any uremic symptoms. He does not have refractory metabolic acidosis fluid overload or hyperkalemia. He agreed to have a PD catheter placement and after his foot infection is cleared. * Continue oral sodium bicarbonate 1300 mg p.o. twice daily upon discharge. His home dose is 650 mg twice daily. * Continue home dose of the antihypertensive medication including carvedilol, hy dralazine, Imdur and nifedipine * Continue oral iron. Due to the infection will not give IV iron due to the risk of the worsening infection * Continue insulin adjust the dose as needed to keep the blood sugar between 100 to 150 mg/dL. * Continue IV antibiotic as per ID. Pharmacy to dose medication. * Check renal function daily and monitor input output * Continue home dose of the Bumex 2 mg daily. * Documented By: Yvonne Barboza MD 05/08/221133 Signed By: <Electronically signed by Yvonne Barboza MD> 05/08/[address] [facility] Work Phone: [phone] 331-156902-16-2023 Progress note Author Cronelio Simon [facility] May 07, 2022 5:08pm Note Date/Time May 07, 2022 4:41pm [facility] [address] [place] [address] Hospitalist Progress Note Signed Patient: Gopal Yates Jr MR#: [id number] : 1965 Acct:[id number] Age/Sex: 56 / M Adm Date: 3 Loc: Room: [address] [place] [address] Type: ADM IN Attending Dr: Cornelio Simon MD Copies to: ~ Date of Service: 05/07/2022 Subjective Subjective Narrative: Patient seen and assessed after podiatry surgical intervention today. He is feeling well. Family members at bedside and he and his family member are updated on the current plan of care. He notes no major pain or discomfort at this time. Exam Physical Exam Vital Signs: Temp Pulse Resp BP Pulse Ox O2 Del Method 98.1 F 73 16 144/64 H 95 Room Air 05/07/22 10:57 05/07/22 16:00 05/07/22 16:00 05/07/22 16:00 05/07/22 16:00 05/07/22 16:00 Narrative: Narrative: Constitutional: Middle-aged WM, resting in bed comfortably HEENT: Moist mucous membranes, neck supple Cardiovascular: RRR, no M/R/G, normal S1 and S2, no JVD Respiratory: Lungs clear to auscultation bilaterally, no wheezes, rales or rhonchi GI: Soft, NTND, normoactive bowel sounds : Deferred Neuro: AAO x3, no focal deficits.? CN III-XII grossly intact, Strength 5/5 throughout Extremities: No clubbing, cyanosis or edema Skin: Surgical dressing covering over the right foot Psych: Patient calm, cooperative and conversant Objective Lab Results 05/07/22 04:46 05/07/22 04:46 Microbiology Results Microbiology 05/05/22 12:10 Blood - Right Antecubital Blood Culture - Preliminary No Growth 2 Days 05/05/22 13:24 Blood - Left Antecubital Blood Culture - Preliminary No Growth 1 Day 05/06/22 10:10 Foot,Right - Ulcer Superficial Wound Culture - Preliminary No Growth 1 Day Meds Allergies and Active Meds Allergies Sulfa (Sulfonamide Antibiotics) Allergy (Verified 07/22/21 13:19) Hives Active Meds: Active Medications Generic Name Dose Route Start Last Admin Trade Name Freq PRN Reason Stop Dose Admin Acetaminophen 650 mg 05/05/22 16:36 Acetaminophen 325 Mg Tablet PO 05/05/23 16:35 Q6HR PRN Pain Scale 1 - 3 or fever Aspirin 81 mg 05/06/22 09:00 05/06/22 08:25 Aspirin 81 Mg Tablet. PO 05/06/23 08:59 81 mg DAILY [facility] Administration Bumetanide 2 mg 05/06/22 09:00 05/07/22 13:59 Bumetanide 2 Mg Tablet PO 05/06/23 08:59 2 mg DAILY [facility] Administration Carvedilol 25 mg 05/05/22 21:00 05/07/22 08:04 Carvedilol 12.5 Mg Tablet PO 05/05/23 20:59 25 mg BID [facility] Administration Clopidogrel Bisulfate 75 mg 05/06/22 09:00 05/06/22 08:26 Clopidogrel Bisulfate 75 Mg Tablet PO 05/06/23 08:59 75 mg DAILY [facility] Administration Dextrose 0 gm 05/05/22 16:34 Dextrose 50% In Water 25 Gm/50 Ml Syringe IV-PUSH 05/05/23 16:33 PRN PRN Hypoglycemia Ezetimibe 10 mg 05/06/22 09:00 05/07/22 13:58 Ezetimibe 10 Mg Tablet PO 05/06/23 08:59 10 mg DAILY [facility] Administration Ferrous Sulfate 324 mg 05/06/22 09:00 05/07/22 08:07 Ferrous Sulfate 324 Mg Tablet. PO 05/06/23 08:59 Not Given DAILY [facility] Glucose 0 gm 05/05/22 16:34 Dextrose 40% Gel 15 Gm Tube PO 05/05/23 16:33 PRN PRN Hypoglycemia Heparin Sodium (Porcine) 5,000 unit 05/06/22 22:00 05/07/22 13:59 Heparin 5,000 Unit/Ml Vial SUBCUT 05/06/23 21:59 Not Given Q8HR [facility] Hydralazine HCl 50 mg 05/05/22 22:00 05/07/22 13:58 Hydralazine 50 Mg Tablet PO 05/05/23 21:59 50 mg TID [facility] Administration Magnesium Sulfate 2 gm in 50 mls @ 25 mls/hr 05/05/22 16:36 Magnesium Sulf 2gm-*Swfi* IV 05/05/23 16:35 DAILY PRN Magnesium Level < 1.7 Ceftaroline Fosamil 300 mg/ 100 mls @ 200 mls/hr 05/06/22 05:00 05/07/22 05:07 Sodium Chloride IV 05/06/23 04:59 200 mls/hr Q12H [facility] Administration Lactated Ringer's 1,000 mls @ 20 mls/hr 05/07/22 01:55 Lactated Ringers IV 05/08/22 01:54 .Q24H ONE Insulin Aspart 0 units 05/05/22 17:00 05/07/22 12:02 Insulin Aspart 300 Units/3 Ml Insuln.Pen SUBCUT 05/05/23 16:59 Not Given TID.WM.HS [facility] Protocol Insulin Glargine 16 units 05/06/22 09:00 05/07/22 08:07 Insulin Glargine 300 Units/3 Ml Insuln.Pen SUBCUT 05/06/23 08:59 Not Given QAM [facility] Isosorbide Dinitrate 10 mg 05/05/22 22:00 05/07/22 13:59 Isosorbide Dinitrate 10 Mg Tablet PO 05/05/23 21:59 10 mg TID [facility] Administration Levothyroxine Sodium 100 mcg 05/06/22 06:30 05/07/22 07:25 Levothyroxine 100 Mcg Tablet PO 05/06/23 06:29 Not Given DAILY@0630 [facility] Multivitamins 1 tab 05/06/22 09:00 05/07/22 08:07 Multivitamin 1 Tab Tablet PO 05/06/23 08:59 Not Given DAILY [facility] Nifedipine 30 mg 05/05/22 21:00 05/07/22 08:04 Nifedipine Er.24hr 30 Mg Tab.Er.24 PO 05/05/23 20:59 30 mg BID [facility] Administration Ondansetron HCl 4 mg 05/05/22 16:36 Ondansetron 4 Mg/2 Ml Vial IV-PUSH 05/05/23 16:35 Q6H PRN Nausea And Vomiting Pantoprazole Sodium 40 mg 05/06/22 09:00 05/07/22 08:07 Pantoprazole 40 Mg Tablet.Dr PO 05/06/23 08:59 Not Given DAILY [facility] Potassium Chloride 40 meq 05/05/22 16:36 Potassium Chloride Er 20 Meq Tab.Er.Prt PO 05/05/23 16:35 DAILY PRN Hypokalemia Sodium Bicarbonate 650 mg 05/07/22 14:00 05/07/22 13:59 Sodium Bicarbonate 650 Mg Tablet PO 05/07/23 13:59 650 mg TID [facility] Administration Sodium Chloride 0 ml 05/05/22 11:35 05/06/22 17:15 Sodium Chloride 0.9 % 10 Ml Syringe IV-PUSH 05/05/23 11:34 10 ml PRN PRN Administration Flush Sodium Chloride 0 ml 05/05/22 16:36 Sodium Chloride 0.9 % 10 Ml Syringe IV-PUSH 05/05/23 16:35 PRN PRN Flush Vitamin D 50 mcg 05/06/22 09:00 05/07/22 08:07 Cholecalciferol 25 Mcg (1,000 Units) Tablet PO 05/06/23 08:59 Not Given DAILY [facility] A&P - Hospitalist Assessment/Plan (1) Osteomyelitis: Plan Right foot osteomyelitis Diabetic foot ulcer Is status post surgical intervention today, postop day #0. Tolerated procedure well. -Continue IV Teflaro, monitor sepsis parameters -F/u surgical wound culture -Appreciate ID assessment and recommendations -Podiatry for postsurgical management and wound care CKD Stage V Patient was recommended to come to the ED here due to nephrology support in the setting of patient's need for surgical intervention for foot ulcer. Patient wasplanned for outpatient evaluation with Dr. Kellogg for PD catheter placement on Wednesday. No urgent/emergent need for hemodialysis at this time -Appreciate general surgery and nephrology assessments; timing of PD cath per them -Continue Bumex, sodium bicarb CAD status post NH/stent x1 HFpEF Hyperlipidemia Hypertension Patient has no cardiorespiratory complaints at this time. -We will hold aspirin and Plavix for now; can restart based upon podiatry/surgery recommendations -Obtain baseline EKG -Continue home cardiac medications including: Coreg, Isordil, nifedipine Insulin-dependent diabetes mellitus type 2 Controlled, A1c is 5.6 -Continue basal bolus regimen with glargine and corrective scale insulin Hypothyroidism?continue levothyroxine Iron deficiency anemia-continue ferrous sulfate CODE STATUS: Full code Documented By: Cornelio Simon MD 3 [id number] Signed By: <Electronically signed by Cornelio Simon MD> 05/07/[address] [facility] Work Phone: [phone]) 208-941502-16-2023 Progress note Author Yvonne Barboza [facility] May 07, 2022 12:06pm Note Date/Time May 07, 2022 12:06pm [facility] [address] [place] [address] Nephrology Progress Note Signed Patient: Gopal Yates Jr MR#: [id number] : 1965 Acct:[id number] Age/Sex: 56 / M Adm Date: 3 Loc: Room: [address] [place] [address] Type: ADM IN Attending Dr: Cornelio Simon MD Copies to: ~ Date of Service: 05/07/2022 Subjective Subjective Narrative: This is a 56-year male with multiple comorbidities including CAD s/p PCI, CKD, type 2 insulin-dependent diabetes mellitus, chronic congestive heart failure with preserved EF, hypertension, anemia, dyslipidemia was sent by the podiatristfor worsening right foot ulcer with concern of osteomyelitis. Patient was taking oral antibiotics but despite that he has no improvement in his wound. Patient also has advanced CKD due to the diabetic kidney disease and hypertensive nephrosclerosis. He follows in our office for his CKD care and hisrenal function has been declining due to progression of CKD. He was referred toDr. Kellogg for peritoneal dialysis catheter placement and is scheduled to see him on 05/11/2022. On evaluation emergency room patient was found to have a mild leukocytosis, metabolic acidosis with serum bicarbonate 16.5 mmol/L and abnormal renal function with serum creatinine 6.03 mg/dL. He also noted to haveanemia with hemoglobin 9.3 g/dL. Patient had x-ray of the foot and MRI which showed finding concerning for osteomyelitis. Patient was started on IV antibiotics and podiatry and ID were consulted. Nephrology is consulted for hisCKD and metabolic acidosis management. Interval history Patient was seen and examined at bedside. He is currently n.p.o. for surgery later today. He was also seen by general surgery for PD catheter evaluation. Plan to do a PD catheter when his infection is better controlled. He denies anychest pain palpitation cough nausea, vomiting, shortness of breath Exam Physical Exam Vital Signs: Temp Pulse Resp BP Pulse Ox O2 Del Method 98.1 F 65 16 144/72 H 96 Room Air 05/07/22 10:57 05/07/22 10:57 05/07/22 10:57 05/07/22 10:57 05/07/22 10:57 05/07/22 10:57 Narrative: General: Appears comfortable and not in distress Heart: S1-S2, no rub Lung: Bilateral air entry, no wheezing or crackles Abdomen: Soft, positive bowel sounds Extremities: No edema, no cyanosis Head: Atraumatic, normocephalic Ear: No gross hearing Deficit or external ear redness Eyes: No pallor or redness Neck: No JVD or visible mass Skin: No rashes or bruises INTELLIGENCE OFFICER: Awake,Alert, 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 Musculoskeletal: No joint swelling or limitation of movement Psychiatric: Cooperative, normal mood and affect Objective Intake and Output I&O: Intake & Output 05/04/22 05/05/22 05/06/22 05/07/22 23:59 23:59 23:59 23:59 Intake Total 350 / 350 1050 / 1050 1150 / 1150 Output Total 310 / 310 310 / 310 450 / 450 Balance 40 / 40 740 / 740 700 / 700 Weight 88.5 kg 88.5 kg 88.8 kg Meds and Allergies Meds: Active Medications Acetaminophen (Acetaminophen 325 Mg Tablet) 650 mg PO Q6HR PRN PRN Reason: Pain Scale 1 - 3 or fever Stop: 05/05/23 16:35 Aspirin (Aspirin 81 Mg Tablet.) 81 mg PO DAILY [facility] Stop: 05/06/23 08:59 Last Admin: 05/06/22 08:25 Dose: 81 mg Bumetanide (Bumetanide 2 Mg Tablet) 2 mg PO DAILY [facility] Stop: 05/06/23 08:59 Last Admin: 05/06/22 08:26 Dose: 2 mg Carvedilol (Carvedilol 12.5 Mg Tablet) 25 mg PO BID [facility] Stop: 05/05/23 20:59 Last Admin: 05/07/22 08:04 Dose: 25 mg Clopidogrel Bisulfate (Clopidogrel Bisulfate 75 Mg Tablet) 75 mg PO DAILY [facility] Stop: 05/06/23 08:59 Last Admin: 05/06/22 08:26 Dose: 75 mg Dextrose (Dextrose 50% In Water 25 Gm/50 Ml Syringe) 0 gm IV-PUSH PRN PRN PRN Reason: Hypoglycemia Stop: 05/05/23 16:33 Ezetimibe (Ezetimibe 10 Mg Tablet) 10 mg PO DAILY [facility] Stop: 05/06/23 08:59 Last Admin: 05/06/22 08:26 Dose: 10 mg Ferrous Sulfate (Ferrous Sulfate 324 Mg Tablet.Dr) 324 mg PO DAILY [facility] Stop: 05/06/23 08:59 Last Admin: 05/07/22 08:07 Dose: Not Given Glucose (Dextrose 40% Gel 15 Gm Tube) 0 gm PO PRN PRN PRN Reason: Hypoglycemia Stop: 05/05/23 16:33 Heparin Sodium (Porcine) (Heparin 5,000 Unit/Ml Vial) 5,000 unit SUBCUT Q8HR [facility] Stop: 05/06/23 21:59 Last Admin: 05/07/22 05:07 Dose: Not Given Hydralazine HCl (Hydralazine 50 Mg Tablet) 50 mg PO TID [facility] Stop: 05/05/23 21:59 Last Admin: 05/07/22 08:07 Dose: Not Given Magnesium Sulfate (Magnesium Sulf 2gm-*Swfi*) 2 gm in 50 mls @ 25 mls/hr IV DAILY PRN PRN Reason: Magnesium Level < 1.7 Stop: 05/05/23 16:35 Ceftaroline Fosamil 300 mg/ (Sodium Chloride) 100 mls @ 200 mls/hr IV Q12H [facility] Stop: 05/06/23 04:59 Last Admin: 05/07/22 05:07 Dose: 200 mls/hr Lactated Ringer's (Lactated Ringers) 1,000 mls @ 20 mls/hr IV .Q24H ONE Stop: 05/08/22 01:54 Insulin Aspart (Insulin Aspart 300 Units/3 Ml Insuln.Pen) 0 units SUBCUT TID.WM.HS [facility]; Protocol Stop: 05/05/23 16:59 Last Admin: 05/07/22 12:02 Dose: Not Given Insulin Glargine (Insulin Glargine 300 Units/3 Ml Insuln.Pen) 16 units SUBCUT QAM [facility] Stop: 05/06/23 08:59 Last Admin: 05/07/22 08:07 Dose: Not Given Isosorbide Dinitrate (Isosorbide Dinitrate 10 Mg Tablet) 10 mg PO TID [facility] Stop: 05/05/23 21:59 Last Admin: 05/07/22 08:07 Dose: Not Given Levothyroxine Sodium (Levothyroxine 100 Mcg Tablet) 100 mcg PO DAILY@0630 [facility] Stop: 05/06/23 06:29 Last Admin: 05/07/22 07:25 Dose: Not Given Multivitamins (Multivitamin 1 Tab Tablet) 1 tab PO DAILY [facility] Stop: 05/06/23 08:59 Last Admin: 05/07/22 08:07 Dose: Not Given Nifedipine (Nifedipine Er.24hr 30 Mg Tab.Er.24) 30 mg PO BID [facility] Stop: 05/05/23 20:59 Last Admin: 05/07/22 08:04 Dose: 30 mg Ondansetron HCl (Ondansetron 4 Mg/2 Ml Vial) 4 mg IV-PUSH Q6H PRN PRN Reason: Nausea And Vomiting Stop: 05/05/23 16:35 Pantoprazole Sodium (Pantoprazole 40 Mg Tablet.Dr) 40 mg PO DAILY [facility] Stop: 05/06/23 08:59 Last Admin: 05/07/22 08:07 Dose: Not Given Potassium Chloride (Potassium Chloride Er 20 Meq Tab.Er.Prt) 40 meq PO DAILY PRN PRN Reason: Hypokalemia Stop: 05/05/23 16:35 Sodium Chloride (Sodium Chloride 0.9 % 10 Ml Syringe) 0 ml IV-PUSH PRN PRN PRN Reason: Flush Stop: 05/05/23 11:34 Last Admin: 05/06/22 17:15 Dose: 10 ml Sodium Chloride (Sodium Chloride 0.9 % 10 Ml Syringe) 0 ml IV-PUSH PRN PRN PRN Reason: Flush Stop: 05/05/23 16:35 Vitamin D (Cholecalciferol 25 Mcg (1,000 Units) Tablet) 50 mcg PO DAILY [facility] Stop: 05/06/23 08:59 Last Admin: 05/07/22 08:07 Dose: Not Given Allergies Sulfa (Sulfonamide Antibiotics) Allergy (Verified 07/22/21 13:19) Hives Results Labs 05/07/22 04:46 05/07/22 04:46 Labs: 05/06/22 05/07/22 05:01 04:46 BUN 87 H Creatinine 5.68 H Iron Saturation 12.0 L Ferritin 426.1 H Radiology Impressions Impressions - last 24 hours: Impressions PVR 05/06/22 09:59 IMPRESSION: MILD PERIPHERAL ARTERIAL DISEASE OF THE RIGHT LOWER EXTREMITY AT REST. THE PATIENT IS MOST LIKELY TO HAVE diffuse DISEASE OF THE RIGHT LOWER EXTREMITY. Impression dictated by: Esteban Harden MD/ 8:58 AM Dictation Location: [place] [address] Any impression(s) listed above is documentation that was entered by the reading physician into a diagnostic report(s) for Gopal Yates Jr. I have reviewed the report(s) and am incorporating any findings in the treatment plan of this patient where applicable. A&P - Nephrology Assessment/Plan (1) CKD (chronic kidney disease) stage 5, GFR less than 15 ml/min: Plan: He has advanced CKD due to the diabetic nephropathy hypertensive nephrosclerosis. His renal function has been declining due to progression of CKD. Patient follows in our office for his CKD care. He is interested in peritoneal dialysis and recently was referred to Dr. Kellogg for PD catheter placement. (2) Metabolic acidosis: Plan: He has metabolic acidosis due to advanced CKD. He was taking sodium bicarbonate at home. (3) Anemia of renal disease: Plan: Hemoglobin is below the goal and has low iron stores. He is currently on oral iron. (4) Hypertensive kidney disease with chronic kidney disease stage V: Plan: Blood pressures controlled. He takes multiple antihypertensive medication including nifedipine, hydralazine, Imdur carvedilol and Bumex. (5) Type 2 diabetes mellitus with diabetic chronic kidney disease: Plan: He has insulin-dependent type 2 diabetes mellitus and was take insulin glargine at home. (6) Diabetic foot ulcer with osteomyelitis: Plan: He presented with diabetic foot infection and was found to have osteomyelitis onMRI. Podiatry and ID has been consulted. Plan * Patient currently denies any uremic symptoms. He does not have refractory metabolic acidosis fluid overload or hyperkalemia. No need to start emergent dialysis now. We will continue to assess its needs on regular basis. * Start oral sodium bicarbonate 650 mg p.o. 3 times daily * Continue home dose of the antihypertensive medication including carvedilol, hydralazine, Imdur and nifedipine * Continue oral iron. Due to the infection will not give IV iron due to the risk of the worsening infection * Continue insulin adjust the dose as needed to keep the blood sugar between 100 to 150 mg/dL. * Continue IV antibiotic as per ID. Pharmacy to dose medication. * Check renal function daily and monitor input output * Documented By: Yvonne Barboza MD 05/07/221202 Signed By: <Electronically signed by Yvonne Barboza MD> 05/07/[address] [facility] Work Phone: [phone]) [phone] Progress note Author Ashutosh Thomas [facility] May 07, 2022 10:01am Note Date/Time May 07, 2022 10:02am [facility] [address] [place] [address] Infect. Disease Progress Note Signed Patient: Gopal Yates Jr MR#: [id number] : 1965 Acct:[id number] Age/Sex: 56 / M Adm Date: 3 Loc: 4N Room: 4R4224-9 Type: ADM IN Attending Dr: Cornelio Simon MD Copies to: ~ Date of Service: 05/07/2022 Subjective Interval history: Patient is comfortable this morning. Scheduled for surgery later this morning. Tolerating IV antibiotics to date. No further reported loose stools. Denies fevers or chills overnight Exam Physical Exam Vital Signs: Vital Signs Temp Pulse Resp BP Pulse Ox O2 Del Method 05/07/22 07:54 98.1 F 63 20 146/62 H 93 L Room Air 05/07/22 03:29 98.5 F 60 18 134/67 94 L Room Air 05/07/22 00:32 98.6 F 60 18 134/64 96 Room Air 05/07/22 00:13 Room Air 05/06/22 19:45 98.5 F 62 18 132/68 96 Room Air 05/06/22 16:00 98.6 F 60 20 128/73 96 Room Air 05/06/22 12:40 Room Air 05/06/22 12:00 98.3 F 65 20 140/72 96 Room Air Const General: cooperative, comfortable and no acute distress Orientation: oriented x3 HEENT Head: normal to inspection Ears: hearing grossly normal bilaterally Face and sinus: normal facial exam Eyes General: appearance normal, both eyes and all related structures Neck Neck: normal visual inspection Chest Chest palpation & inspection: normal inspection of the chest Resp Effort & Inspection: normal respiratory effort Cardio Palpation: normal PMI Rate: regular rate Rhythm: regular rhythm GI Inspection: normal to inspection Palpation: soft and nontender Auscultation: normal bowel sounds Skin General: other (R lateral ulceration 4x3 cm with odorous drainage. Mild erythema and edema) Other: Wound actually not seen today. Scheduled for surgery this morning Neuro General: patient oriented x3 Extrem General: abnormal to inspection (see skin) Objective Labs CBC/BMP: CBC, BMP 05/07/22 05/07/22 04:46 04:46 Corrected WBC 9.7 Uncorrected WBC Count 9.7 RBC 3.29 L Hgb 9.2 L Hct 27.2 L Plt Count 164 Sodium 134 L Potassium 3.4 L Chloride 104 Carbon Dioxide 20.5 L Anion Gap 12.9 BUN 87 H Creatinine 5.68 H Calcium 7.3 L Labs: 05/07/22 04:46 BUN 87 H Creatinine 5.68 H Microbiology Microbiology: Microbiology - Results from entire visit 05/06/22 10:10 Foot,Right - Ulcer Superficial Wound Culture - Preliminary No Growth 1 Day 05/05/22 12:10 Blood - Right Antecubital Blood Culture - Preliminary No Growth 1 Day Allergies and Medications Allergies and Active Meds Allergies Sulfa (Sulfonamide Antibiotics) Allergy (Verified 07/22/21 13:19) Hives Active Medications Acetaminophen (Acetaminophen 325 Mg Tablet) 650 mg PO Q6HR PRN PRN Reason: Pain Scale 1 - 3 or fever Stop: 05/05/23 16:35 Aspirin (Aspirin 81 Mg Tablet.) 81 mg PO DAILY [facility] Stop: 05/06/23 08:59 Last Admin: 05/06/22 08:25 Dose: 81 mg Bumetanide (Bumetanide 2 Mg Tablet) 2 mg PO DAILY [facility] Stop: 05/06/23 08:59 Last Admin: 05/06/22 08:26 Dose: 2 mg Carvedilol (Carvedilol 12.5 Mg Tablet) 25 mg PO BID [facility] Stop: 05/05/23 20:59 Last Admin: 05/07/22 08:04 Dose: 25 mg Clopidogrel Bisulfate (Clopidogrel Bisulfate 75 Mg Tablet) 75 mg PO DAILY [facility] Stop: 05/06/23 08:59 Last Admin: 05/06/22 08:26 Dose: 75 mg Dextrose (Dextrose 50% In Water 25 Gm/50 Ml Syringe) 0 gm IV-PUSH PRN PRN PRN Reason: Hypoglycemia Stop: 05/05/23 16:33 Ezetimibe (Ezetimibe 10 Mg Tablet) 10 mg PO DAILY [facility] Stop: 05/06/23 08:59 Last Admin: 05/06/22 08:26 Dose: 10 mg Ferrous Sulfate (Ferrous Sulfate 324 Mg Tablet.Dr) 324 mg PO DAILY [facility] Stop: 05/06/23 08:59 Last Admin: 05/07/22 08:07 Dose: Not Given Glucose (Dextrose 40% Gel 15 Gm Tube) 0 gm PO PRN PRN PRN Reason: Hypoglycemia Stop: 05/05/23 16:33 Heparin Sodium (Porcine) (Heparin 5,000 Unit/Ml Vial) 5,000 unit SUBCUT Q8HR [facility] Stop: 05/06/23 21:59 Last Admin: 05/07/22 05:07 Dose: Not Given Hydralazine HCl (Hydralazine 50 Mg Tablet) 50 mg PO TID [facility] Stop: 05/05/23 21:59 Last Admin: 05/07/22 08:07 Dose: Not Given Magnesium Sulfate (Magnesium Sulf 2gm-*Swfi*) 2 gm in 50 mls @ 25 mls/hr IV DAILY PRN PRN Reason: Magnesium Level < 1.7 Stop: 05/05/23 16:35 Ceftaroline Fosamil 300 mg/ (Sodium Chloride) 100 mls @ 200 mls/hr IV Q12H [facility] Stop: 05/06/23 04:59 Last Admin: 05/07/22 05:07 Dose: 200 mls/hr Lactated Ringer's (Lactated Ringers) 1,000 mls @ 20 mls/hr IV .Q24H ONE Stop: 05/08/22 01:54 Insulin Aspart (Insulin Aspart 300 Units/3 Ml Insuln.Pen) 0 units SUBCUT TID.WM.HS [facility]; Protocol Stop: 05/05/23 16:59 Last Admin: 05/07/22 08:05 Dose: Not Given Insulin Glargine (Insulin Glargine 300 Units/3 Ml Insuln.Pen) 16 units SUBCUT QAM [facility] Stop: 05/06/23 08:59 Last Admin: 05/07/22 08:07 Dose: Not Given Isosorbide Dinitrate (Isosorbide Dinitrate 10 Mg Tablet) 10 mg PO TID [facility] Stop: 05/05/23 21:59 Last Admin: 05/07/22 08:07 Dose: Not Given Levothyroxine Sodium (Levothyroxine 100 Mcg Tablet) 100 mcg PO DAILY@0630 [facility] Stop: 05/06/23 06:29 Last Admin: 05/07/22 07:25 Dose: Not Given Multivitamins (Multivitamin 1 Tab Tablet) 1 tab PO DAILY [facility] Stop: 05/06/23 08:59 Last Admin: 05/07/22 08:07 Dose: Not Given Nifedipine (Nifedipine Er.24hr 30 Mg Tab.Er.24) 30 mg PO BID [facility] Stop: 05/05/23 20:59 Last Admin: 05/07/22 08:04 Dose: 30 mg Ondansetron HCl (Ondansetron 4 Mg/2 Ml Vial) 4 mg IV-PUSH Q6H PRN PRN Reason: Nausea And Vomiting Stop: 05/05/23 16:35 Pantoprazole Sodium (Pantoprazole 40 Mg Tablet.Dr) 40 mg PO DAILY [facility] Stop: 05/06/23 08:59 Last Admin: 05/07/22 08:07 Dose: Not Given Potassium Chloride (Potassium Chloride Er 20 Meq Tab.Er.Prt) 40 meq PO DAILY PRN PRN Reason: Hypokalemia Stop: 05/05/23 16:35 Sodium Chloride (Sodium Chloride 0.9 % 10 Ml Syringe) 0 ml IV-PUSH PRN PRN PRN Reason: Flush Stop: 05/05/23 11:34 Last Admin: 02/15/23 17:15 Dose: 10 ml Sodium Chloride (Sodium Chloride 0.9 % 10 Ml Syringe) 0 ml IV-PUSH PRN PRN PRN Reason: Flush Stop: 05/05/23 16:35 Vitamin D (Cholecalciferol 25 Mcg (1,000 Units) Tablet) 50 mcg PO DAILY [facility] Stop: 05/06/23 08:59 Last Admin: 05/07/22 08:07 Dose: Not Given A&P - Infectious Disease Assessment/Plan (1) Diabetic foot ulcer with osteomyelitis: Code(s): E11.621 - Type 2 diabetes mellitus with foot ulcer; E11.69 - Type 2 diabetes mellitus with other specified complication; L97.509 - Non-pressure chronic ulcerof other part of unspecified foot with unspecified severity; M86.9 - Osteomyelitis, unspecified Status: Acute (2) Type 2 diabetes mellitus with diabetic chronic kidney disease: Code(s): E11.22 - Type 2 diabetes mellitus with diabetic chronic kidney disease Status: Acute Plan Superficial wound culture without growth. Blood culture pending. 1 set is negative at 1 day. Continue on Teflaro. Await superficial culture as well as deep operative cultures. Not sure if he will need to continue on IV versus oralantibiotics upon discharge. Length to be determined based on extent of surgicaloperation performed. Documented By: Ashutosh Thomas MD 05/07/22 0959 Signed By: <Electronically signed by MD Ashutosh Thomas> 05/07/[address] [facility] Work Phone: [phone] Consult note Author Eddy Griggs [facility] May 06, 2022 5:35pm Note Date/Time May 06, 2022 5:35pm [facility] [address] [place] [address] Podiatry Consult Note Signed Patient: Gopal Yates Jr MR#: [id number] : 1965 Acct:[id number] Age/Sex: 56 / M Adm Date: 3 Loc: 4N Room: 6F9212-4 Type: ADM IN Attending Dr: Cornelio Simon MD Copies to: HARRY Bermeo MD Frederick E Doamekpor, MD~ HPI Data of Consult Consult Date: 05/06/22 Requesting Physician: Cornelio Simon MD Primary Care Provider: Douglas Juárez MD Consult Narrative Reason for consult: Right foot ulceration with osteomyelitis History of present illness: Mr. Yates is a 56 year old male who has had a history of a callus along the outside of the right foot. He states he was in the shower 1 day when this opened and he noticed a significant amount of bleeding and a large wound. Patient was seen by Dr. Park under at the wound care center in [place] and x-rays were noted to have osteomyelitis. Due to his kidney function he was sent to [facility] as there is a concern for need for inpatient dialysis which is not available at [place]. Patient states that he has had some episodes of fever and chills denies any nausea or vomiting. He does have some increased discomfort to the right foot but patient has known diabetic neuropathy which limits his overall feeling. He has not had a history of wounds or sores to his feet in the past. Patient denies any history of problems with his circulation. He states he did have a test performed earlier this afternoon to check the bloodflow in his legs. No other complaints. Review of Systems Review of Systems All other systems reviewed & are negative unless noted below or in HPI PMFSH Vaccinated for COVID-19?: Yes Medical History Anemia CHF (congestive heart failure) CKD (chronic kidney disease) Diabetes type 2, controlled Hypertension Wound of foot Surgical History History of heart artery stent 2019 Hx of cardiac cath 2019 Family History Father Heart attack Heart failure Mother Breast cancer Social History Smoking Status: Former smoker Substance Use Type: None Meds Medications and Allergies Allergies Sulfa (Sulfonamide Antibiotics) Allergy (Verified 07/22/21 13:19) Hives Home Medications aspirin 81 mg tablet,delayed release 81 mg PO DAILY 05/05/22 [History Confirmed 05/05/22] bumetanide 2 mg tablet 2 mg PO DAILY 05/05/22 [History Confirmed 05/05/22] carvedilol 25 mg tablet 37.5 mg PO BID 05/05/22 [History Confirmed 05/05/22] cholecalciferol (vitamin D3) 50 mcg (2,000 unit) capsule (Vitamin D3) 50 mcg PO DAILY 05/05/22 [History Confirmed 05/05/22] clopidogrel 75 mg tablet 75 mg PO DAILY 05/05/22 [History Confirmed 05/05/22] ezetimibe 10 mg tablet 10 mg PO DAILY 05/05/22 [History Confirmed 05/05/22] ferrous sulfate 325 mg (65 mg iron) tablet 325 mg PO DAILY 05/05/22 [History Confirmed 05/05/22] hydralazine 50 mg tablet 50 mg PO TID 05/05/22 [History Confirmed 05/05/22] insulin aspart U-100 100 unit/mL (3 mL) subcutaneous pen See Rx Instructions .Route .COMPLEX 05/05/22 [History Confirmed 05/05/22] insulin glargine 100 unit/mL subcutaneous solution (Lantus U-100 Insulin) See RxInstructions .Route .COMPLEX 05/05/22 [History Confirmed 05/05/22] isosorbide dinitrate 10 mg tablet 10 mg PO TID 05/05/22 [History Confirmed 05/05/22] levothyroxine 100 mcg tablet 100 mcg PO DAILY 05/05/22 [History Confirmed 05/05/22] multivitamin 1 tab PO DAILY 05/05/22 [History Confirmed 05/05/22] nifedipine 30 mg tablet,extended release 24 hr 30 mg PO BID 05/05/22 [History Confirmed 05/05/22] omeprazole 40 mg capsule,delayed release 40 mg PO DAILY 05/05/22 [History Confirmed 05/05/22] potassium chloride 10 mEq tablet,extended release 10 meq PO DAILY 05/05/22 [History Confirmed 05/05/22] Exam Physical Exam Vital Signs: Temp Pulse Resp BP Pulse Ox O2 Del Method 98.6 F 60 20 128/73 96 Room Air 05/06/22 16:00 05/06/22 16:00 05/06/22 16:00 05/06/22 16:00 05/06/22 16:00 05/06/22 16:00 Narrative: General: Patient is seen at bedside and is awake and aware and in no acute distress. Vascular: DP and PT pulses are nonpalpable to the right lower extremity but palpable on the left. There is +2-3 pitting edema around the dorsal foot and medial ankle. PVR was reviewed that did demonstrate good waveforms to the ankleand ALICIA on the right of 0.93. Neurology: Patient has known diabetic peripheral neuropathy with autonomic, sensory and motor components. Dermatology: Patient has a large 5 cm x 3 cm wound along the plantar lateral aspect of the right fifth MPJ. Base of the wound is mostly necrotic with nonviable tissue. There is active drainage noted. Deep portions of the wound do probe to bone. Localized surrounding cellulitis is noted but no evidence of streaking. Orthopedic: Muscle strength is 4 out of 5 for all pedal groups tested. Mild pain with palpation around the ulceration site to the right fifth MPJ. X-rays: Demonstrate evidence of cortical erosion along the lateral head of the fifth MPJ MRI: Demonstrates evidence of acute osteomyelitis to the base of the proximal phalanx of the fifth digit and fifth metatarsal head slightly to the more distalaspect of the fifth metatarsal Results Labs 05/06/22 05:01 05/06/22 05:01 ESR 119 mm/hr (0-19) H 05/05/22 12:10 Hemoglobin A1c 5.6 % (4.3-5.6) 05/06/22 05:01 Microbiology Microbiology: Microbiology - Results from entire visit 05/05/22 12:10 Blood - Right Antecubital Blood Culture - Preliminary No Growth 1 Day Assessment/Plan (1) Ulcer of right foot with necrosis of bone: Plan: Discussed with the patient the findings of the x-rays, MRI and examination. He does have evidence of osteomyelitis which be best served with amputation of the right fifth ray. I discussed with the patient the difference between conservative treatment, need for long-term IV antibiotics which may be risky based on his need for dialysis as well as OR treatment and hopeful discharge on oral antibiotics if we are able to remove the entire aspect of infection to the fifthmetatarsal. I discussed with the patient the risk, benefits and alternatives relative to the proposed surgical procedure. All questions were answered. Patient was advised on the need for reduced weightbearing and use of a surgical shoe or walking boot postoperatively. We did discuss that there may be limited availability for direct skin closure due to the location of the ulceration but we will attempt to obtain primary closure to reduce the need for long-term woundcare. Patient did request to have follow-up at the [place] wound care center. I will contact Dr. Iverson to ensure that this is okay for the patient to follow-up postoperatively. Thank you for this consultation. We will place orders for n.p.o. today after midnight with plan for surgery tomorrow at noon. Podiatry will continue to follow. 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 Work Phone: [phone] Consult note Author Sohan Kellogg [facility] May 06, 2022 5:02pm Note Date/Time May 06, 2022 4:57pm [facility] [address] [place] [address] General Surgery Consult Note Signed Patient: Gopal Yates Jr MR#: [id number] : 1965 Acct:[id number] Age/Sex: 56 / M Adm Date: 3 Loc: Room: [address] [place] [address] Type: ADM IN Attending Dr: Cornelio Simon MD Copies to: MD Douglas Ignacio MD Frederick E Doamekpor, MD~ History of Present Illness Date of consult: 05/06/2022 Reason for consult: other (Peritoneal dialysis access) Requesting/Attending Provider: Cornelio Simon MD, Dr. Tamra BATISTA History of present illness: The patient is a 56-year-old male with a history of coronary artery disease, congestive heart failure, diabetes mellitus, chronic renal failure stage V for whom consultation is made regarding peritoneal dialysis access. Patient was scheduled to see me in the office next week. However, he is admitted because ofinfected right foot diabetic ulcer. Patient does wish to pursue peritoneal dialysis as opposed to hemodialysis. He denies abdominal pain, change in bowel habits, nausea/vomiting. He denies previous abdominal surgery. Review of Systems Constitutional Constitutional: Denies fever(s) Cardiovascular Cardiovascular: Denies chest pain Respiratory Respiratory: Denies dyspnea Gastrointestinal Gastrointestinal: Denies abdominal pain, Denies change in bowel habits and Denies vomiting Genitourinary Genitourinary: Denies difficulty urinating Integumentary/Breasts Skin/Breast: Reports wounds (Diabetic foot ulcer) Neurologic Neurologic: Denies syncope PMFSH Vaccinated for COVID-19?: Yes Medical History Anemia CHF (congestive heart failure) CKD (chronic kidney disease) Diabetes type 2, controlled Hypertension Wound of foot Surgical History History of heart artery stent 2019 Hx of cardiac cath 2019 Family History Father Heart attack Heart failure Mother Breast cancer Social History Smoking Status: Former smoker Substance Use Type: None Allergies & Medications Medications and Allergies Allergies Sulfa (Sulfonamide Antibiotics) Allergy (Verified 07/22/21 13:19) Hives Home Medications aspirin 81 mg tablet,delayed release 81 mg PO DAILY 05/05/22 [History Confirmed 05/05/22] bumetanide 2 mg tablet 2 mg PO DAILY 05/05/22 [History Confirmed 05/05/22] carvedilol 25 mg tablet 37.5 mg PO BID 05/05/22 [History Confirmed 05/05/22] cholecalciferol (vitamin D3) 50 mcg (2,000 unit) capsule (Vitamin D3) 50 mcg PO DAILY 05/05/22 [History Confirmed 05/05/22] clopidogrel 75 mg tablet 75 mg PO DAILY 05/05/22 [History Confirmed 05/05/22] ezetimibe 10 mg tablet 10 mg PO DAILY 05/05/22 [History Confirmed 05/05/22] ferrous sulfate 325 mg (65 mg iron) tablet 325 mg PO DAILY 05/05/22 [History Confirmed 05/05/22] hydralazine 50 mg tablet 50 mg PO TID 05/05/22 [History Confirmed 05/05/22] insulin aspart U-100 100 unit/mL (3 mL) subcutaneous pen See Rx Instructions .Route .COMPLEX 05/05/22 [History Confirmed 05/05/22] insulin glargine 100 unit/mL subcutaneous solution (Lantus U-100 Insulin) See RxInstructions .Route .COMPLEX 05/05/22 [History Confirmed 05/05/22] isosorbide dinitrate 10 mg tablet 10 mg PO TID 05/05/22 [History Confirmed 05/05/22] levothyroxine 100 mcg tablet 100 mcg PO DAILY 05/05/22 [History Confirmed 05/05/22] multivitamin 1 tab PO DAILY 05/05/22 [History Confirmed 05/05/22] nifedipine 30 mg tablet,extended release 24 hr 30 mg PO BID 05/05/22 [History Confirmed 05/05/22] omeprazole 40 mg capsule,delayed release 40 mg PO DAILY 05/05/22 [History Confirmed 05/05/22] potassium chloride 10 mEq tablet,extended release 10 meq PO DAILY 05/05/22 [History Confirmed 05/05/22] Active Medications Acetaminophen (Acetaminophen 325 Mg Tablet) 650 mg PO Q6HR PRN PRN Reason: Pain Scale 1 - 3 or fever Stop: 05/05/23 16:35 Aspirin (Aspirin 81 Mg Tablet.) 81 mg PO DAILY [facility] Stop: 05/06/23 08:59 Last Admin: 05/06/22 08:25 Dose: 81 mg Bumetanide (Bumetanide 2 Mg Tablet) 2 mg PO DAILY [facility] Stop: 05/06/23 08:59 Last Admin: 05/06/22 08:26 Dose: 2 mg Carvedilol (Carvedilol 12.5 Mg Tablet) 25 mg PO BID [facility] Stop: 05/05/23 20:59 Last Admin: 05/06/22 08:26 Dose: 25 mg Clopidogrel Bisulfate (Clopidogrel Bisulfate 75 Mg Tablet) 75 mg PO DAILY [facility] Stop: 05/06/23 08:59 Last Admin: 05/06/22 08:26 Dose: 75 mg Dextrose (Dextrose 50% In Water 25 Gm/50 Ml Syringe) 0 gm IV-PUSH PRN PRN PRN Reason: Hypoglycemia Stop: 05/05/23 16:33 Ezetimibe (Ezetimibe 10 Mg Tablet) 10 mg PO DAILY [facility] Stop: 05/06/23 08:59 Last Admin: 02/15/23 08:26 Dose: 10 mg Ferrous Sulfate (Ferrous Sulfate 324 Mg Tablet.Dr) 324 mg PO DAILY [facility] Stop: 05/06/23 08:59 Last Admin: 05/06/22 08:25 Dose: 324 mg Glucose (Dextrose 40% Gel 15 Gm Tube) 0 gm PO PRN PRN PRN Reason: Hypoglycemia Stop: 05/05/23 16:33 Heparin Sodium (Porcine) (Heparin 5,000 Unit/Ml Vial) 5,000 unit SUBCUT Q8HR [facility] Stop: 05/06/23 21:59 Hydralazine HCl (Hydralazine 50 Mg Tablet) 50 mg PO TID [facility] Stop: 05/05/23 21:59 Last Admin: 05/06/22 14:46 Dose: 50 mg Magnesium Sulfate (Magnesium Sulf 2gm-*Swfi*) 2 gm in 50 mls @ 25 mls/hr IV DAILY PRN PRN Reason: Magnesium Level < 1.7 Stop: 05/05/23 16:35 Ceftaroline Fosamil 300 mg/ (Sodium Chloride) 100 mls @ 200 mls/hr IV Q12H [facility] Stop: 05/06/23 04:59 Last Admin: 05/06/22 05:28 Dose: 200 mls/hr Sodium Bicarbonate 150 meq/ (Sterile Water) 1,150 mls @ 100 mls/hr IV .[id number] [facility] Stop: 05/07/22 10:29 Last Admin: 05/06/22 12:58 Dose: 100 mls/hr Insulin Aspart (Insulin Aspart 300 Units/3 Ml Insuln.Pen) 0 units SUBCUT TID.WM.HS [facility]; Protocol Stop: 05/05/23 16:59 Last Admin: 05/06/22 12:58 Dose: Not Given Insulin Glargine (Insulin Glargine 300 Units/3 Ml Insuln.Pen) 16 units SUBCUT QAM [facility] Stop: 05/06/23 08:59 Last Admin: 05/06/22 08:26 Dose: Not Given Isosorbide Dinitrate (Isosorbide Dinitrate 10 Mg Tablet) 10 mg PO TID [facility] Stop: 05/05/23 21:59 Last Admin: 05/06/22 14:46 Dose: 10 mg Levothyroxine Sodium (Levothyroxine 100 Mcg Tablet) 100 mcg PO DAILY@0630 [facility] Stop: 05/06/23 06:29 Last Admin: 02/15/23 05:30 Dose: 100 mcg Multivitamins (Multivitamin 1 Tab Tablet) 1 tab PO DAILY [facility] Stop: 05/06/23 08:59 Last Admin: 05/06/22 08:26 Dose: 1 tab Nifedipine (Nifedipine Er.24hr 30 Mg Tab.Er.24) 30 mg PO BID [facility] Stop: 05/05/23 20:59 Last Admin: 05/06/22 08:26 Dose: 30 mg Ondansetron HCl (Ondansetron 4 Mg/2 Ml Vial) 4 mg IV-PUSH Q6H PRN PRN Reason: Nausea And Vomiting Stop: 05/05/23 16:35 Pantoprazole Sodium (Pantoprazole 40 Mg Tablet.Dr) 40 mg PO DAILY [facility] Stop: 05/06/23 08:59 Last Admin: 05/06/22 08:26 Dose: 40 mg Potassium Chloride (Potassium Chloride Er 20 Meq Tab.Er.Prt) 40 meq PO DAILY PRN PRN Reason: Hypokalemia Stop: 05/05/23 16:35 Sodium Chloride (Sodium Chloride 0.9 % 10 Ml Syringe) 0 ml IV-PUSH PRN PRN PRN Reason: Flush Stop: 05/05/23 11:34 Sodium Chloride (Sodium Chloride 0.9 % 10 Ml Syringe) 0 ml IV-PUSH PRN PRN PRN Reason: Flush Stop: 05/05/23 16:35 Vitamin D (Cholecalciferol 25 Mcg (1,000 Units) Tablet) 50 mcg PO DAILY [facility] Stop: 05/06/23 08:59 Last Admin: 05/06/22 08:26 Dose: 50 mcg Exam Physical Exam Vital Signs: Temp Pulse Resp BP Pulse Ox O2 Del Method 98.6 F 60 20 128/73 96 Room Air 05/06/22 16:00 05/06/22 16:00 05/06/22 16:00 05/06/22 16:00 05/06/22 16:00 05/06/22 16:00 Const General: cooperative and no acute distress HEENT Head: atraumatic Eyes Sclera: sclerae normal (Anicteric) Resp Auscultation: clear to auscultation bilaterally Cardio Rate: regular rate Rhythm: regular rhythm GI Inspection: non-distended Palpation: soft and nontender Skin Other: Dressing over foot ulcer Neuro General: patient alert and patient awake Results Intake and Output 24 hour I&O: Intake & Output 05/06/22 05/06/22 05/06/22 07:59 15:59 23:59 Intake Total 200 / 200 375 / 575 Output Total 310 / 310 Balance -110 / -110 375 / 265 Weight 88.5 kg Labs 05/06/22 05:01 05/06/22 05:01 Laboratory Results - last 72 hr 05/06/22 16:32: POC Glucose 189, POC Glucose Comment Glu2: cleaned meter 05/06/22 12:05: POC Glucose 138, POC Glucose Comment Glu2: cleaned meter 05/06/22 08:03: POC Glucose 92 05/06/22 05:01: Iron 15 L, TIBC 125 L, Iron Saturation 12.0 L, Transferrin 89 L,Ferritin 426.1 H, Vitamin B12 373, Folate 13.4 05/06/22 05:01: Triglycerides 83, Cholesterol 63 L, LDL Cholesterol, Calc 28, VLDL Cholesterol 16, HDL Cholesterol 18 L, Cholesterol/HDL Ratio 3.5 05/06/22 05:01: Estimat Average Glucose 114, Hemoglobin A1c 5.6 05/06/22 05:01: PHA Creatinine Clear 16.59, Sodium 132 L, Potassium 3.8, Chloride 105, Carbon Dioxide 16.5 L, Anion Gap 14.3, BUN 90 H, Creatinine 6.03 H, Est GFR ( Amer) 12, Est GFR (Non-Af Amer) 10, Glucose 89, Calcium 7.6 L, Total Bilirubin 1.0, AST 28, ALT 23, Alkaline Phosphatase 137 H, Total Protein 6.3, Albumin 2.2 L, Globulin 4.1, Albumin/Globulin Ratio 0.5 05/06/22 05:01: PT 16.0 H, INR 1.4, APTT 38.6 H 05/06/22 05:01: Corrected WBC 11.5 H, Uncorrected WBC Count 11.5 H, RBC 3.44 L, Hgb 9.3 L, Hct 28.6 L, MCV 83.4 L, MCH 27.1 L, MCHC 32.5, RDW 14.6, Plt Count 162, MPV 9.7, Neut % (Auto) 89.9, Lymph % (Auto) 2.5, Edmunds % (Auto) 7.1, Eos % (Auto) 0.2, Baso % (Auto) 0.3, Nucleat RBC Rel Count 0.1, Neut # (Auto) 10.3 H, Lymph # (Auto) 0.3 L, Edmunds # (Auto) 0.8, Eos # (Auto) 0.0, Baso # (Auto) 0.0 05/05/22 21:40: POC Glucose 103 05/05/22 16:51: POC Glucose 106 05/05/22 12:10: PHA Creatinine Clear 16.32, Sodium 132 L, Potassium 4.1, Chloride 105, Carbon Dioxide 17.0 L, Anion Gap 14.1, BUN 91 H, Creatinine 6.13 H, Est GFR ( Amer) 11, Est GFR (Non-Af Amer) 10, Glucose 106 H, Calcium 7.8 L, Total Bilirubin 0.9, AST 45 H, ALT 30, Alkaline Phosphatase 167 H, C-Reactive Prot, Quant 12.5 H, Total Protein 7.2, Albumin 2.6 L, Globulin 4.6, Albumin/Globulin Ratio 0.6 05/05/22 12:10: Corrected WBC 11.9 H, Uncorrected WBC Count 11.9 H, RBC 3.79 L, Hgb 10.4 L, Hct 31.8 L, MCV 83.9, MCH 27.5, MCHC 32.8, RDW 14.2, Plt Count 189, MPV 9.6, Neut % (Auto) 90.3, Lymph % (Auto) 3.2, Edmunds % (Auto) 6.3, Eos % (Auto)0.2, Baso % (Auto) 0.0, Nucleat RBC Rel Count 0.1, Neut # (Auto) 10.7 H, Lymph #(Auto) 0.4 L, Edmunds # (Auto) 0.8, Eos # (Auto) 0.0, Baso # (Auto) 0.0, Monocyte Dist Width 18.26, ESR 119 H Microbiology Microbiology - Results from entire visit 05/05/22 12:10 Blood - Right Antecubital Blood Culture - Preliminary No Growth 1 Day A&P - General Surgery (1) CKD (chronic kidney disease) stage 5, GFR less than 15 ml/min: Code(s): N18.5 - Chronic kidney disease, stage 5 Status: Acute (2) Type 2 diabetes mellitus with diabetic chronic kidney disease: Code(s): E11.22 - Type 2 diabetes mellitus with diabetic chronic kidney disease Status: Acute (3) Metabolic acidosis: Code(s): E87.20 - Acidosis, unspecified Status: Acute (4) Anemia of renal disease: Code(s): N18.9 - Chronic kidney disease, unspecified; D63.1 - Anemia in chronic kidney disease Status: Acute (5) Hypertensive kidney disease with chronic kidney disease stage V: Code(s): I12.0 - Hypertensive chronic kidney disease with stage 5 chronic kidney disease or end stage renal disease; N18.5 - Chronic kidney disease, stage 5 Status: Acute (6) Diabetic foot ulcer with osteomyelitis: Code(s): E11.621 - Type 2 diabetes mellitus with foot ulcer; E11.69 - Type 2 diabetes mellitus with other specified complication; L97.509 - Non-pressure chronic ulcerof other part of unspecified foot with unspecified severity; M86.9 - Osteomyelitis, unspecified Status: Acute Plan Plan will be laparoscopic placement of a peritoneal dialysis catheter. The procedure, benefits, risks including risks of bleeding, infection, catheter malfunction, inadequate dialysis with peritoneal dialysis were discussed. Timing of the surgery will be pending management of his diabetic foot ulcer. Ideally, the procedure would be performed when there are no other active infections. Documented By: Sohan Kellogg MD 05/06/221655 Signed By: <Electronically signed by MD Sohan Kellogg> 05/06/22 85[address] [facility] Work Phone: [phone] 573-638202-15-2023 Consult note Author Yvonne Barboza [facility] May 06, 2022 11:39am Note Date/Time May 06, 2022 11:33am [facility] [address] [place] [address] Nephrology Consult Note Signed Patient: Gopal Yates Jr MR#: [id number] : 1965 Acct:[id number] Age/Sex: 56 / M Adm Date: 3 Loc: 4N Room: [address] [place] [address] Type: ADM IN Attending Dr: Cornelio Simon MD Copies to: MD Douglas Kraus MD Frederick E Doamekpor MD~ Providers Consult Date: 05/06/22 Requesting Provider: Cornelio Simon MD Primary Care Provider: Douglas Juárez MD HPI Reason for Consult: CKD and metabolic acidosis management. 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 Patient was taking oral antibiotics but despite that he has no improvement in his wound. Patient also has advanced CKD due to the diabetic kidney disease and hypertensive nephrosclerosis. He follows in our office for his CKD care and his renal function has been declining due to progression of CKD. He was referred to Dr. Kellogg for peritoneal dialysis catheter placement and is scheduled to see him on05/11/2022. On evaluation emergency room patient was found to have a mild leukocytosis, metabolic acidosis with serum bicarbonate 16.5 mmol/L and abnormalrenal function with serum creatinine 6.03 mg/dL. He also noted to have anemia with hemoglobin 9.3 g/dL. Patient had x-ray of the foot and MRI which showed finding concerning for osteomyelitis. Patient was started on IV antibiotics andpodiatry and ID were consulted. Nephrology is consulted for his CKD and metabolic acidosis management. Patient was seen and examined at bedside he denies any uremic symptoms symptoms including sleep reversal, itching, provider appetite nausea vomiting. Review of Systems Review of Systems All other systems reviewed & are negative unless noted below or in HPI Review of systems: Cardiovascular: denies any chest pain, palpitation Pulmonary: denies any cough, hemoptysis Gastrointestinal: denies any nausea, vomiting, diarrhea Neurological :denies any headache, numbness, weakness Endocrine: denies any polyuria, polydipsia Dermatological: denies any itching or rash PMFSH Vaccinated for COVID-19?: Yes Medical History Anemia CHF (congestive heart failure) CKD (chronic kidney disease) Diabetes type 2, controlled Hypertension Wound of foot Surgical History History of heart artery stent 2019 Hx of cardiac cath 2020 Family History Father Heart attack Heart failure Mother Breast cancer Social History Smoking Status: Former smoker Substance Use Type: None Meds Medications & Allergies Allergies Sulfa (Sulfonamide Antibiotics) Allergy (Verified 07/22/21 13:19) Hives Home Medications aspirin 81 mg tablet,delayed release 81 mg PO DAILY 05/05/22 [History Confirmed 05/05/22] bumetanide 2 mg tablet 2 mg PO DAILY 05/05/22 [History Confirmed 05/05/22] carvedilol 25 mg tablet 37.5 mg PO BID 05/05/22 [History Confirmed 05/05/22] cholecalciferol (vitamin D3) 50 mcg (2,000 unit) capsule (Vitamin D3) 50 mcg PO DAILY 05/05/22 [History Confirmed 05/05/22] clopidogrel 75 mg tablet 75 mg PO DAILY 05/05/22 [History Confirmed 05/05/22] ezetimibe 10 mg tablet 10 mg PO DAILY 05/05/22 [History Confirmed 05/05/22] ferrous sulfate 325 mg (65 mg iron) tablet 325 mg PO DAILY 05/05/22 [History Confirmed 05/05/22] hydralazine 50 mg tablet 50 mg PO TID 05/05/22 [History Confirmed 05/05/22] insulin aspart U-100 100 unit/mL (3 mL) subcutaneous pen See Rx Instructions .Route .COMPLEX 05/05/22 [History Confirmed 05/05/22] insulin glargine 100 unit/mL subcutaneous solution (Lantus U-100 Insulin) See RxInstructions .Route .COMPLEX 05/05/22 [History Confirmed 05/05/22] isosorbide dinitrate 10 mg tablet 10 mg PO TID 05/05/22 [History Confirmed 05/05/22] levothyroxine 100 mcg tablet 100 mcg PO DAILY 05/05/22 [History Confirmed 05/05/22] multivitamin 1 tab PO DAILY 05/05/22 [History Confirmed 05/05/22] nifedipine 30 mg tablet,extended release 24 hr 30 mg PO BID 05/05/22 [History Confirmed 05/05/22] omeprazole 40 mg capsule,delayed release 40 mg PO DAILY 05/05/22 [History Confirmed 05/05/22] potassium chloride 10 mEq tablet,extended release 10 meq PO DAILY 05/05/22 [History Confirmed 05/05/22] Active Medications: Active Medications Acetaminophen (Acetaminophen 325 Mg Tablet) 650 mg PO Q6HR PRN PRN Reason: Pain Scale 1 - 3 or fever Stop: 05/05/23 16:35 Aspirin (Aspirin 81 Mg Tablet.) 81 mg PO DAILY [facility] Stop: 05/06/23 08:59 Last Admin: 05/06/22 08:25 Dose: 81 mg Bumetanide (Bumetanide 2 Mg Tablet) 2 mg PO DAILY [facility] Stop: 05/06/23 08:59 Last Admin: 05/06/22 08:26 Dose: 2 mg Carvedilol (Carvedilol 12.5 Mg Tablet) 25 mg PO BID [facility] Stop: 05/05/23 20:59 Last Admin: 05/06/22 08:26 Dose: 25 mg Clopidogrel Bisulfate (Clopidogrel Bisulfate 75 Mg Tablet) 75 mg PO DAILY [facility] Stop: 05/06/23 08:59 Last Admin: 05/06/22 08:26 Dose: 75 mg Dextrose (Dextrose 50% In Water 25 Gm/50 Ml Syringe) 0 gm IV-PUSH PRN PRN PRN Reason: Hypoglycemia Stop: 05/05/23 16:33 Ezetimibe (Ezetimibe 10 Mg Tablet) 10 mg PO DAILY [facility] Stop: 05/06/23 08:59 Last Admin: 05/06/22 08:26 Dose: 10 mg Ferrous Sulfate (Ferrous Sulfate 324 Mg Tablet.) 324 mg PO DAILY [facility] Stop: 05/06/23 08:59 Last Admin: 05/06/22 08:25 Dose: 324 mg Glucose (Dextrose 40% Gel 15 Gm Tube) 0 gm PO PRN PRN PRN Reason: Hypoglycemia Stop: 05/05/23 16:33 Heparin Sodium (Porcine) (Heparin 5,000 Unit/Ml Vial) 5,000 unit SUBCUT Q8HR [facility] Stop: 05/06/23 21:59 Hydralazine HCl (Hydralazine 50 Mg Tablet) 50 mg PO TID [facility] Stop: 05/05/23 21:59 Last Admin: 05/06/22 08:26 Dose: 50 mg Magnesium Sulfate (Magnesium Sulf 2gm-*Swfi*) 2 gm in 50 mls @ 25 mls/hr IV DAILY PRN PRN Reason: Magnesium Level < 1.7 Stop: 05/05/23 16:35 Ceftaroline Fosamil 300 mg/ (Sodium Chloride) 100 mls @ 200 mls/hr IV Q12H [facility] Stop: 05/06/23 04:59 Last Admin: 05/06/22 05:28 Dose: 200 mls/hr Sodium Bicarbonate 150 meq/ (Sterile Water) 1,150 mls @ 100 mls/hr IV .[id number] [facility] Stop: 05/07/22 10:29 Insulin Aspart (Insulin Aspart 300 Units/3 Ml Insuln.Pen) 0 units SUBCUT TID.WM.HS [facility]; Protocol Stop: 05/05/23 16:59 Last Admin: 05/06/22 08:25 Dose: Not Given Insulin Glargine (Insulin Glargine 300 Units/3 Ml Insuln.Pen) 16 units SUBCUT QAM [facility] Stop: 05/06/23 08:59 Last Admin: 05/06/22 08:26 Dose: Not Given Isosorbide Dinitrate (Isosorbide Dinitrate 10 Mg Tablet) 10 mg PO TID [facility] Stop: 05/05/23 21:59 Last Admin: 05/06/22 08:26 Dose: 10 mg Levothyroxine Sodium (Levothyroxine 100 Mcg Tablet) 100 mcg PO DAILY@0630 [facility] Stop: 05/06/23 06:29 Last Admin: 05/06/22 05:30 Dose: 100 mcg Multivitamins (Multivitamin 1 Tab Tablet) 1 tab PO DAILY [facility] Stop: 05/06/23 08:59 Last Admin: 05/06/22 08:26 Dose: 1 tab Nifedipine (Nifedipine Er.24hr 30 Mg Tab.Er.24) 30 mg PO BID [facility] Stop: 05/05/23 20:59 Last Admin: 05/06/22 08:26 Dose: 30 mg Ondansetron HCl (Ondansetron 4 Mg/2 Ml Vial) 4 mg IV-PUSH Q6H PRN PRN Reason: Nausea And Vomiting Stop: 05/05/23 16:35 Pantoprazole Sodium (Pantoprazole 40 Mg Tablet.Dr) 40 mg PO DAILY [facility] Stop: 05/06/23 08:59 Last Admin: 05/06/22 08:26 Dose: 40 mg Potassium Chloride (Potassium Chloride Er 20 Meq Tab.Er.Prt) 40 meq PO DAILY PRN PRN Reason: Hypokalemia Stop: 05/05/23 16:35 Sodium Chloride (Sodium Chloride 0.9 % 10 Ml Syringe) 0 ml IV-PUSH PRN PRN PRN Reason: Flush Stop: 05/05/23 11:34 Sodium Chloride (Sodium Chloride 0.9 % 10 Ml Syringe) 0 ml IV-PUSH PRN PRN PRN Reason: Flush Stop: 05/05/23 16:35 Vitamin D (Cholecalciferol 25 Mcg (1,000 Units) Tablet) 50 mcg PO DAILY [facility] Stop: 05/06/23 08:59 Last Admin: 05/06/22 08:26 Dose: 50 mcg Exam Physical Exam Vital Signs: Temp Pulse Resp BP Pulse Ox O2 Del Method 99.1 F H 63 18 144/77 H 95 Room Air 05/06/22 08:00 05/06/22 08:00 05/06/22 08:00 05/06/22 08:00 05/06/22 08:00 05/06/22 08:00 Narrative: General: Appears comfortable and not in distress Heart: S1-S2, no rub Lung: Bilateral air entry, no wheezing or crackles Abdomen: Soft, positive bowel sounds Extremities: No edema, no cyanosis Head: Atraumatic, normocephalic Ear: No gross hearing Deficit or external ear redness Eyes: No pallor or redness Neck: No JVD or visible mass Skin: No rashes or bruises 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 Consider acute osteomyelitis. Impression dictated by: Nathan Estes M.D.05/05/2022 12:26 PM Dictation Location: [place] [address] Foot MRI 05/05/22 16:41 IMPRESSION: SLIGHT LIMITED STUDY DUE TO MOTION AND ABSENCE OF CONTRAST. SIGNAL CHANGES INVOLVING THE FIFTH METATARSAL AND PROXIMAL PHALANX OF THE FIFTH TOE, SUSPICIOUS FOR OSTEOMYELITIS GIVEN THE PRESENCE OF AN ADJACENT SKIN ULCER. Impression dictated by: Tana Perry M.D.05/06/2022 8:46 AM Dictation Location: [facility]--12 Any impression(s) listed above is documentation that was entered by the reading physician into a diagnostic report(s) for Gopal Yates Jr. I have reviewed the report(s) and am incorporating any findings in the treatment plan of this patient where applicable. A&P - Nephrology Assessment/Plan (1) CKD (chronic kidney disease) stage 5, GFR less than 15 ml/min: Plan: He has advanced CKD due to the diabetic nephropathy hypertensive nephrosclerosis. His renal function has been declining due to progression of CKD. Patient follows in our office for his CKD care. He is interested in peritoneal dialysis and recently was referred to Dr. Kellogg for PD catheter placement. (2) Metabolic acidosis: Plan: He has a metabolic acidosis due to advanced CKD. He was taking sodium bicarbonate at home. (3) Anemia of renal disease: Plan: Hemoglobin is below the goal. (4) Hypertensive kidney disease with chronic kidney disease stage V: Plan: Blood pressures controlled. He takes multiple antihypertensive medication including nifedipine, hydralazine, Imdur carvedilol and Bumex. (5) Type 2 diabetes mellitus with diabetic chronic kidney disease: Plan: He has insulin-dependent type 2 diabetes mellitus and was take insulin glargine at home. (6) Diabetic foot ulcer with osteomyelitis: Plan: He presented with diabetic foot infection and was found to have osteomyelitis onMRI. Podiatry and ID has been consulted. Plan * Patient currently denies any uremic symptoms. He does not have refractory metabolic acidosis fluid overload or hyperkalemia. No need to start emergent dialysis now. We will continue to assess its needs on regular basis. * Will consult general surgery for PD catheter placement. * Will give IV fluid with sodium bicarbonate at a rate of 100 ml/h x 2 L. * Continue home dose of the antihypertensive medication including carvedilol, hydralazine, Imdur and nifedipine * Check iron studies B12 and folate level. * Continue insulin adjust the dose as needed to keep the blood sugar between 100 to 150 mg/dL. * Continue IV antibiotic as per ID. Pharmacy to dose medication. * Check renal function daily and monitor input output * Thanks for the consult. We will continue to follow with you. Please feel free to call us with any question. Plan of care was discussed in detail with the patient and the at the bedside. Documented By: Yvonne Barboza MD 05/06/22 1125 Signed By: <Electronically signed by Yvonne Barboza MD> 05/06/[address] [facility] Work Phone: [phone] 374-957102-15-2023 Consult note Author Ashutosh Thomas [facility] May 06, 2022 11:35am Note Date/Time May 06, 2022 11:35am [facility] [address] [place] [address] Infect. Disease Consult Note Signed Patient: Gopal Yates Jr MR#: [id number] : 1965 Acct:[id number] Age/Sex: 56 / M Adm Date: 3 Loc: 4N Room: [address] [place] [address] Type: ADM IN Attending Dr: Cornelio Simon MD Copies to: MD Cornelio Mahoney MD Michael S Blank, MD~ HPI Data of Consult Consult date: 05/06/22 Requesting Physician: Cornelio Simon MD Primary Care Provider: Douglas Juárez MD Consult Narrative History of present illness: Mr. 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 Patient apparently had a callus on this lateral aspect of his foot for quite some time and stated he shown day and noted was bleeding. He gone to his primary care doctors and with the wound clinic. That is where Dr. Iverson came into the picture and had prescribed some outpatient oral antibiotics for which the patient did indeed take. He had been on doxycycline and Keflex. Unfortunately the wound continue to progress and turned black. Patient developed fevers and chills patient. Patient has known kidney disease and giventhis concern he came to [facility] to be further evaluated. MRI was performed that showed signal changes involving the fifth metatarsal and proximal phalanx of the fifth toe suspicious for osteomyelitis. Patient was started empirically on Teflaro. Did have a fever last night with some chills. Denies nausea vomiting but does admit to some loose stool last night. CC: Cornelio Simon MD Review of Systems Review of Systems All other systems reviewed & are negative unless noted below or in HPI [facility] Attestation Statement: The following information was validated with the patient. Vaccinated for COVID-19?: Yes Medical History Anemia CHF (congestive heart failure) CKD (chronic kidney disease) Diabetes type 2, controlled Hypertension Wound of foot Surgical History History of heart artery stent 2019 Hx of cardiac cath 2019 Family History Father Heart attack Heart failure Mother Breast cancer Social History Smoking Status: Former smoker Substance Use Type: None Allergies and Medications Allergies and Active Meds Allergies Sulfa (Sulfonamide Antibiotics) Allergy (Verified 07/22/21 13:19) Hives Active Medications Acetaminophen (Acetaminophen 325 Mg Tablet) 650 mg PO Q6HR PRN PRN Reason: Pain Scale 1 - 3 or fever Stop: 05/05/23 16:35 Aspirin (Aspirin 81 Mg Tablet.) 81 mg PO DAILY [facility] Stop: 05/06/23 08:59 Last Admin: 05/06/22 08:25 Dose: 81 mg Bumetanide (Bumetanide 2 Mg Tablet) 2 mg PO DAILY [facility] Stop: 05/06/23 08:59 Last Admin: 05/06/22 08:26 Dose: 2 mg Carvedilol (Carvedilol 12.5 Mg Tablet) 25 mg PO BID [facility] Stop: 05/05/23 20:59 Last Admin: 05/06/22 08:26 Dose: 25 mg Clopidogrel Bisulfate (Clopidogrel Bisulfate 75 Mg Tablet) 75 mg PO DAILY [facility] Stop: 05/06/23 08:59 Last Admin: 05/06/22 08:26 Dose: 75 mg Dextrose (Dextrose 50% In Water 25 Gm/50 Ml Syringe) 0 gm IV-PUSH PRN PRN PRN Reason: Hypoglycemia Stop: 02/14/24 16:33 Ezetimibe (Ezetimibe 10 Mg Tablet) 10 mg PO DAILY [facility] Stop: 05/06/23 08:59 Last Admin: 05/06/22 08:26 Dose: 10 mg Ferrous Sulfate (Ferrous Sulfate 324 Mg Tablet.Dr) 324 mg PO DAILY [facility] Stop: 05/06/23 08:59 Last Admin: 05/06/22 08:25 Dose: 324 mg Glucose (Dextrose 40% Gel 15 Gm Tube) 0 gm PO PRN PRN PRN Reason: Hypoglycemia Stop: 05/05/23 16:33 Heparin Sodium (Porcine) (Heparin 5,000 Unit/Ml Vial) 5,000 unit SUBCUT Q8HR [facility] Stop: 05/06/23 21:59 Hydralazine HCl (Hydralazine 50 Mg Tablet) 50 mg PO TID [facility] Stop: 05/05/23 21:59 Last Admin: 05/06/22 08:26 Dose: 50 mg Magnesium Sulfate (Magnesium Sulf 2gm-*Swfi*) 2 gm in 50 mls @ 25 mls/hr IV DAILY PRN PRN Reason: Magnesium Level < 1.7 Stop: 05/05/23 16:35 Ceftaroline Fosamil 300 mg/ (Sodium Chloride) 100 mls @ 200 mls/hr IV Q12H [facility] Stop: 05/06/23 04:59 Last Admin: 05/06/22 05:28 Dose: 200 mls/hr Sodium Bicarbonate 150 meq/ (Sterile Water) 1,150 mls @ 100 mls/hr IV .[id number] [facility] Stop: 05/07/22 10:29 Insulin Aspart (Insulin Aspart 300 Units/3 Ml Insuln.Pen) 0 units SUBCUT TID.WM.HS [facility]; Protocol Stop: 05/05/23 16:59 Last Admin: 05/06/22 08:25 Dose: Not Given Insulin Glargine (Insulin Glargine 300 Units/3 Ml Insuln.Pen) 16 units SUBCUT QAM [facility] Stop: 05/06/23 08:59 Last Admin: 05/06/22 08:26 Dose: Not Given Isosorbide Dinitrate (Isosorbide Dinitrate 10 Mg Tablet) 10 mg PO TID [facility] Stop: 05/05/23 21:59 Last Admin: 05/06/22 08:26 Dose: 10 mg Levothyroxine Sodium (Levothyroxine 100 Mcg Tablet) 100 mcg PO DAILY@0630 [facility] Stop: 05/06/23 06:29 Last Admin: 05/06/22 05:30 Dose: 100 mcg Multivitamins (Multivitamin 1 Tab Tablet) 1 tab PO DAILY [facility] Stop: 05/06/23 08:59 Last Admin: 05/06/22 08:26 Dose: 1 tab Nifedipine (Nifedipine Er.24hr 30 Mg Tab.Er.24) 30 mg PO BID [facility] Stop: 05/05/23 20:59 Last Admin: 05/06/22 08:26 Dose: 30 mg Ondansetron HCl (Ondansetron 4 Mg/2 Ml Vial) 4 mg IV-PUSH Q6H PRN PRN Reason: Nausea And Vomiting Stop: 05/05/23 16:35 Pantoprazole Sodium (Pantoprazole 40 Mg Tablet.Dr) 40 mg PO DAILY [facility] Stop: 05/06/23 08:59 Last Admin: 05/06/22 08:26 Dose: 40 mg Potassium Chloride (Potassium Chloride Er 20 Meq Tab.Er.Prt) 40 meq PO DAILY PRN PRN Reason: Hypokalemia Stop: 05/05/23 16:35 Sodium Chloride (Sodium Chloride 0.9 % 10 Ml Syringe) 0 ml IV-PUSH PRN PRN PRN Reason: Flush Stop: 05/05/23 11:34 Sodium Chloride (Sodium Chloride 0.9 % 10 Ml Syringe) 0 ml IV-PUSH PRN PRN PRN Reason: Flush Stop: 05/05/23 16:35 Vitamin D (Cholecalciferol 25 Mcg (1,000 Units) Tablet) 50 mcg PO DAILY [facility] Stop: 05/06/23 08:59 Last Admin: 05/06/22 08:26 Dose: 50 mcg Exam Physical Exam Vital Signs: Temp Pulse Resp BP Pulse Ox O2 Del Method 99.1 F H 63 18 144/77 H 95 Room Air 05/06/22 08:00 05/06/22 08:00 05/06/22 08:00 05/06/22 08:00 05/06/22 08:00 05/06/22 08:00 Const General: cooperative, comfortable and no acute distress Orientation: oriented x3 HEENT Head: normal to inspection Ears: hearing grossly normal bilaterally Face and sinus: normal facial exam Eyes General: appearance normal, both eyes and all related structures Neck Neck: normal visual inspection Chest Chest palpation & inspection: normal inspection of the chest Resp Effort & Inspection: normal respiratory effort Cardio Palpation: normal PMI Rate: regular rate Rhythm: regular rhythm GI Inspection: normal to inspection Palpation: soft and nontender Auscultation: normal bowel sounds Skin General: other (R lateral ulceration 4x3 cm with odorous drainage. Mild erythema and edema) Neuro General: patient oriented x3 Extrem General: abnormal to inspection (see skin) Results Labs 05/06/22 05:01 05/06/22 05:01 Labs: 05/05/22 12:10: Corrected WBC 11.9 H, Uncorrected WBC Count 11.9 H 05/05/22 12:10: BUN 91 H, Creatinine 6.13 H 05/06/22 05:01: Corrected WBC 11.5 H, Uncorrected WBC Count 11.5 H 05/06/22 05:01: BUN 90 H, Creatinine 6.03 H Microbiology Results Microbiology Narrative: 05/05/22 13:24 Blood Culture - Pending Blood - Left Antecubital 05/06/22 10:10 Superficial Wound Culture - Pending Foot,Right - Ulcer 05/05/22 12:10 Blood Culture - Pending Blood - Right Antecubital Imaging and Cardiology Status: report viewed by me Results Comments: MRI Foot: IMPRESSION: ? SLIGHT LIMITED STUDY DUE TO MOTION AND ABSENCE OF CONTRAST. ? SIGNAL CHANGES INVOLVING THE FIFTH METATARSAL AND PROXIMAL PHALANX OF THE FIFTH TOE, SUSPICIOUS FOR OSTEOMYELITIS GIVEN THE PRESENCE OF AN ADJACENT SKIN ULCER. A&P - Infectious Disease (1) Diabetic foot ulcer with osteomyelitis: Status: Acute (2) Type 2 diabetes mellitus with diabetic chronic kidney disease: Status: Acute Plan No cultures apparently done at [facility]. Cultures here are pending. Given patient's creatinine clearance agree with Teflaro for now empirically while we await culture results. Podiatry to see the patient and determine surgical plan. Length and route of antibiotics to be determined after surgical intervention. Documented By: Ashutosh Thomas MD 05/06/22 1129 Signed By: <Electronically signed by MD Ashutosh Thomas> 05/06/22 1135 [facility] Work Phone: [phone]) 364-769302-15-2023 History and physical note Author Cornelio Simon [facility] May 06, 2022 10:34am Note Date/Time May 06, 2022 9:59am [facility] [address] [place] [address] Hospitalist H&P Signed Patient: Gopal Yates Jr MR#: [id number] : 1965 Acct:[id number] Age/Sex: 56 / M Adm Date: 3 Loc: Room: [address] [place] [address] Type: ADM IN Attending Dr: Cornelio Simon MD Copies to: MD Cornelio Mahoney MD~ HPI DATE OF EXAMINATION: 05/06/22 CHIEF COMPLAINT: Right lateral foot ulcer HISTORY OF PRESENT ILLNESS: Mr. 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 Patient notes that he has had a callus for long period of time, approximately years, on the lateral aspect of his right foot distally. He notes that approximately 3 weeks ago, he had an opening of the callus and there was an ulcer that developed. He has minimal sensation in the foot and did not have a lot of pain or discomfort. He brought this to the attention of his primary carephysician, who recommended a topical treatment, but wound worsened. He then presented to Dr. Iverson of podiatry, and patient has been maintained on doxycycline and Keflex as an outpatient and topical wound care at [facility] to help heal the wound. Patient was following up with Dr. Iverson in clinic on the day of hospitalization, and was sent into the emergency department due to worsening of the ulcer. Of note, patient with worsening renalfunction chronically and is currently being worked up for peritoneal dialysis. He was to have evaluation with Dr. Kellogg on 05/11/2022 for peritoneal dialysis catheter placement. He was recommended to come to [facility] due to nephrology support perioperatively. In the emergency department, patient had no symptoms of sepsis. WBC mildly elevated at 11.9. CRP elevated at 12.5 and ESR 119. Foot x-ray did reveal evidence of osteomyelitis. Case was discussed between myself and ED attending and patient was admitted to hospital service for further management. Unable to assess patient on the evening of admission due to him being in the MRI machine when coming to assess him. Review of Systems Review of Systems Review of systems: 10 point ROS reviewed and is negative except for that which is noted above in HPI PMFSH Vaccinated for COVID-19?: Yes Medical History (Updated 05/05/22 @ 13:01 by Barb Kramer, JENNIFER) Anemia CHF (congestive heart failure) CKD (chronic kidney disease) Diabetes type 2, controlled Hypertension Wound of foot Surgical History (Updated 05/05/22 @ 13:01 by Barb Kramer, JENNIFER) History of heart artery stent 2019 Hx of cardiac cath 2019 Family History (Updated 05/05/22 @ 15:18 by Natalie Wall RN) Father Heart attack Heart failure Mother Breast cancer Social History Smoking Status: Former smoker Substance Use Type: None Meds Medications and Allergies Allergies Sulfa (Sulfonamide Antibiotics) Allergy (Verified 07/22/21 13:19) Hives Home Medications aspirin 81 mg tablet,delayed release 81 mg PO DAILY 05/05/22 [History Confirmed 05/05/22] bumetanide 2 mg tablet 2 mg PO DAILY 05/05/22 [History Confirmed 05/05/22] carvedilol 25 mg tablet 37.5 mg PO BID 05/05/22 [History Confirmed 05/05/22] cholecalciferol (vitamin D3) 50 mcg (2,000 unit) capsule (Vitamin D3) 50 mcg PO DAILY 05/05/22 [History Confirmed 05/05/22] clopidogrel 75 mg tablet 75 mg PO DAILY 05/05/22 [History Confirmed 05/05/22] ezetimibe 10 mg tablet 10 mg PO DAILY 05/05/22 [History Confirmed 05/05/22] ferrous sulfate 325 mg (65 mg iron) tablet 325 mg PO DAILY 05/05/22 [History Confirmed 05/05/22] hydralazine 50 mg tablet 50 mg PO TID 05/05/22 [History Confirmed 05/05/22] insulin aspart U-100 100 unit/mL (3 mL) subcutaneous pen See Rx Instructions .Route .COMPLEX 05/05/22 [History Confirmed 05/05/22] insulin glargine 100 unit/mL subcutaneous solution (Lantus U-100 Insulin) See RxInstructions .Route .COMPLEX 05/05/22 [History Confirmed 05/05/22] isosorbide dinitrate 10 mg tablet 10 mg PO TID 05/05/22 [History Confirmed 05/05/22] levothyroxine 100 mcg tablet 100 mcg PO DAILY 05/05/22 [History Confirmed 05/05/22] multivitamin 1 tab PO DAILY 05/05/22 [History Confirmed 05/05/22] nifedipine 30 mg tablet,extended release 24 hr 30 mg PO BID 05/05/22 [History Confirmed 05/05/22] omeprazole 40 mg capsule,delayed release 40 mg PO DAILY 05/05/22 [History Confirmed 05/05/22] potassium chloride 10 mEq tablet,extended release 10 meq PO DAILY 05/05/22 [History Confirmed 05/05/22] Exam Physical Exam Vital Signs: Temp Pulse Resp BP Pulse Ox O2 Del Method 99.1 F H 63 18 144/77 H 95 Room Air 05/06/22 08:00 05/06/22 08:00 05/06/22 08:00 05/06/22 08:00 05/06/22 08:00 05/06/22 08:00 Narrative: Constitutional: Middle-aged WM, resting in bed comfortably HEENT: Moist mucous membranes, neck supple Cardiovascular: RRR, no M/R/G, normal S1 and S2, no JVD Respiratory: Lungs clear to auscultation bilaterally, no wheezes, rales or rhonchi GI: Soft, NTND, normoactive bowel sounds : Deferred Neuro: AAO x3, no focal deficits. CN II-XII grossly intact, Strength 5/5 throughout Extremities: No clubbing, cyanosis or edema Skin: Approximately 4 x 3 cm oval shaped ulcer noted on the lateral aspect of the distal right foot, which is malodorous and having mild purulent drainage at the base. Not a significant amount of erythema surrounding the ulcer area. Patient is not very tender throughout the foot or surrounding wound region. Psych: Patient calm, cooperative and conversant Results Lab Results Labs: Laboratory Last Values Corrected WBC 11.5 X10E3/uL (4.1-10.5) H 05/06/22 05:01 Uncorrected WBC Count 11.5 x10E3/uL (4.1-10.5) H 05/06/22 05:01 RBC 3.44 X10E6/uL (3.90-5.60) L 05/06/22 05:01 Hgb 9.3 g/dL (13.0-17.0) L 05/06/22 05:01 Hct 28.6 % (38.8-50.0) L 05/06/22 05:01 MCV 83.4 fl (83.5-101) L 05/06/22 05:01 MCH 27.1 pg (27.5-35.2) L 05/06/22 05:01 MCHC 32.5 g/dL (32.5-35.6) 05/06/22 05:01 RDW 14.6 % (12.0-14.8) 05/06/22 05:01 Plt Count 162 x10E3/uL (150-450) 05/06/22 05:01 MPV 9.7 fl (6.6-10.1) 05/06/22 05:01 Neut % (Auto) 89.9 % (.) 05/06/22 05:01 Lymph % (Auto) 2.5 % (.) 05/06/22 05:01 Edmunds % (Auto) 7.1 % (.) 05/06/22 05:01 Eos % (Auto) 0.2 % (.) 05/06/22 05:01 Baso % (Auto) 0.3 % (.) 05/06/22 05:01 Nucleat RBC Rel Count 0.1 /100 WBC (0-0.5) 05/06/22 05:01 Neut # (Auto) 10.3 x10E3/uL (1.8-7.7) H 05/06/22 05:01 Lymph # (Auto) 0.3 x10E3/uL (1.00-4.8) L 05/06/22 05:01 Edmunds # (Auto) 0.8 x10E3/uL (0.0-0.8) 05/06/22 05:01 Eos # (Auto) 0.0 x10E3/uL (0.0-0.45) 05/06/22 05:01 Baso # (Auto) 0.0 x10E3/uL (0.0-0.2) 05/06/22 05:01 Monocyte Dist Width 18.26 % (0.00-20.00) 05/05/22 12:10 ESR 119 mm/hr (0-19) H 05/05/22 12:10 PT 16.0 Seconds (9.0-12.9) H 05/06/22 05:01 INR 1.4 05/06/22 05:01 APTT 38.6 Seconds (25.1-36.5) H 05/06/22 05:01 PHA Creatinine Clear 16.59 05/06/22 05:01 Sodium 132 mmol/L (136-146) L 05/06/22 05:01 Potassium 3.8 mmol/L (3.5-5.1) 05/06/22 05:01 Chloride 105 mmol/L (95-114) 05/06/22 05:01 Carbon Dioxide 16.5 mmol/L (22.0-30.0) L 05/06/22 05:01 Anion Gap 14.3 mEq/L (6.0-15.0) 05/06/22 05:01 BUN 90 mg/dL (9-23) H 05/06/22 05:01 Creatinine 6.03 mg/dL (0.64-1.27) H 05/06/22 05:01 Est GFR ( Amer) 12 mL/Min 05/06/22 05:01 Est GFR (Non-Af Amer) 10 mL/Min 05/06/22 05:01 Glucose 89 mg/dL (70-100) 05/06/22 05:01 POC Glucose 92 mg/dl 05/06/22 08:03 Calcium 7.6 mg/dL (8.2-10.2) L 05/06/22 05:01 Total Bilirubin 1.0 mg/dL (0.3-1.2) 05/06/22 05:01 AST 28 U/L (10-42) 05/06/22 05:01 ALT 23 U/L (10-60) 05/06/22 05:01 Alkaline Phosphatase 137 U/L (32-92) H 05/06/22 05:01 C-Reactive Prot, Quant 12.5 mg/dL (0.0-1.0) H 05/05/22 12:10 Total Protein 6.3 gm/dL (6.1-7.9) 05/06/22 05:01 Albumin 2.2 gm/dL (3.2-5.5) L 05/06/22 05:01 Globulin 4.1 gm/dL 05/06/22 05:01 Albumin/Globulin Ratio 0.5 05/06/22 05:01 A&P - Hospitalist Assessment/Plan (1) Osteomyelitis: Plan Right foot osteomyelitis Diabetic foot ulcer 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 Patient did spike fever overnight and does have borderline elevated WBC. ESR and CRP are elevated. MRI was performed yesterday and does confirm evidence of osteomyelitis on the fifth metatarsal. Patient normally follows up with Dr. Iverson at [facility], but I am informed that Dr. Griggs will be taking over the case. -Continue IV Teflaro, monitor sepsis parameters -Check arterial PVR -Obtain superficial culture of wound -We will hold aspirin and Plavix for now (patient did receive them this a.m.) inanticipation of surgical intervention -Consult infectious diseases for antibiotic management -Podiatry consult in place, await their assessment CKD Stage V Patient was recommended to come to the ED here due to nephrology support in the setting of patient's need for surgical intervention for foot ulcer. Patient wasplanned for outpatient evaluation with Dr. Kellogg for PD catheter placement on Wednesday. Given that patient is currently here for osteomyelitis which will likely require multiple day hospitalization, may perform some of the work-up andpreparation for dialysis while inpatient here. No urgent/emergent need for hemodialysis at this time -Consult nephrology for their recommendations -Continue Bumex CAD status post NH/stent x1 HFpEF Hyperlipidemia Hypertension Patient has no cardiorespiratory complaints at this time. -Obtain baseline EKG -Continue home cardiac medications including: Coreg, Isordil, nifedipine -We will hold ASA/Plavix for now Insulin-dependent diabetes mellitus type 2 Controlled, per patient report -Check A1c -Continue basal bolus regimen with glargine and corrective scale insulin Hypothyroidism?continue levothyroxine Iron deficiency anemia-continue ferrous sulfate CODE STATUS: Full code Documented By: Cornelio Simon MD 3 [id number] Signed By: <Electronically signed by Cornelio Simon MD> 05/06/[address] [facility] Work Phone: [phone]) [phone] NotePROCEDURE: XR FOOT RT MIN 3 VIEWS COMPARISON: None. HISTORY: Pain in right foot FINDINGS: BONES:No acute fracture or dislocation. Moderate diffuse degenerative changes with joint space narrowing and marginal osteophyte formation. Enthesopathic spurring of the calcaneus. There is lytic change identified along the head of the fifth metatarsal and base of the fifth proximal phalanx best seen on image 1 SOFT TISSUES:Soft tissue injury lateral fifth metatarsal phalangeal joint EFFUSION:None visible. OTHER: Call results initiated through operations. IMPRESSION: Suspected osteomyelitis centered at the fifth metatarsal phalangeal joint Electronically authenticated by: FIDEL GONGORA Date: 2022-05-05 07:29[facility]01-26-2023 NoteHNO ID: [id number] Author: Monik Dotson APRN.GLOBAL CLIMATE CHANGE RESEARCHER Service: ? Author Type: Nurse Practitioner Type: Progress Notes Filed: 04/16/2022 3:56 PM Note Text: NAME: Gopal Yates CLINIC NO.: [id number] DATE OF SERVICE: April 16, 2022 (Imer) Some elements in this clinic note that are critical to medical decision making have been carefully reviewed and included from a prior clinic note dated: February 18, 2022. (Dr. Rojas) Referring Provider: Dr. Douglas Juárez Additional Clinicians involved in Gopal Yates 's care: DIAGNOSIS: Elevated [place]: Lambda light chains CKD induced anemia ASSESSMENT: 56 year old gentleman with longstanding and poorly controlled T2DM and HTN with renal failure. CKD induced anemia underwent lab workup for possible underlying primary marrow conditions that were negative. PLAN: Aranesp today and every 4 weeks. Labs prior to treatment. Labs in 4 weeks to include iron, B12 and folate. Okay to stop oral iron due to normal iron levels from 03/18/2022. Follow up in 8 weeks for labs and possible Aranesp. Follow up with Dr. Juárez for TSH 0.8. CURRENT TREATMENT: 12/04/2020 Aranesp 200 mcg initiated. HPI: CASE HISTORY: reverse chronological order October 2021 finished IV iron with nephrology. Updated Visit, April 16, 2022: Gopal Yates JR returns for follow-up and possible Aranesp. His last Aranesp 200 mcg injection was on 03/18/2022. Since his last visit there has been no significant medical changes. He denies abnormal bleeding and bruising. He remains on 1 oral iron pill daily. He denies constipation and GI upset. He is scheduled to see nephrology 05/05/2022. He thinks at that appointment he will be told he will need to start dialysis. He offers no new complaints today. No new issues, problems or concerns. Updated Visit, February 18, 2022: Gopal is feeling good. Here with Eneida. Hgb improving on current regimen. TSH suppressed. - defer to Dr. Juárez. Updated Visit, January 14, 2022: Gopal Yates JR returns for follow-up. His last Aranesp injection of 200 mcg was on 11/19/2021. He states that he is still tired and cold. Since the Aranesp injections he has been a little more energetic. He states that the iron infusions did not help at all. He denies bleeding and abnormal bruising. 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 Overall, he is doing well today. Updated Visit, December 17, 2021: Gopal returns and has significant improvement in anemia. Will not need Epo this time around. It has been 4 weeks. Anticipate he will be fine for at least another 4 weeks. Fatigue and feeling cold is unchanged. Otherwise doing well. Updated Visit, December 03, 2021: Gopal Yates JR returns today for follow-up. Aranesp 200 mcg initiated on 10/22/2021. To date, he has had 3 Aranesp injections. He still complains of feeling cold and tired. He denies any signs of bleeding. He states that he has completed 5 doses of IV iron at [facility] [place]. Initial Visit, October 02, 2021: Gopal Yates JR presents today Hematology and Oncology evaluation. He is a 56 year old male who has a chronic history of T2DM and HTN. He has neuropathy and Renal failure as well as anemia that is most likely associated. Cold and fatigued and weak. 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 REVIEW OF SYSTEMS Per HPI and otherwise negative by full review of organ systems. ECOG PERFORMANCE STATUS: 0 PHYSICAL EXAMINATION: Vitals: BP 136/61 Pulse 59 Temp (Src) 97 (Temporal) Resp 18 Ht 6' 3.984 (1.93m) Wt 198 lb (89.8kg) SpO2 95% BMI 24.11 kg/(m2). Body surface area is 2.19 meters squared. Exam limited to gross visualization where appropriate due to COVID-19. Gen.: This is an age-appropriate patient in no acute distress. Head: Appears atraumatic with no visible lesions. Eyes: Pupils equally round and reactive to light, extraocular muscles are intact. Neck: Supple. Mouth: Masked. Respiratory: Appears to be respiring comfortably. Neurologic: Nonfocal to gross visualization. Alert and oriented ?3. Psychiatric: No evidence of inappropriate anxiety or depression. Skin: Visible areas of skin without rash, lesions, wounds or petechiae. ALLERGIES: ALLERGIES Allergen Reactions Sulfa (Sulfonamide * Unknown MEDICATIONS: aspirin 81 mg cap Take by mouth. bumetanide (BUMEX) 2 mg tablet Take 2 mg by mouth once daily. carvedilol (COREG) 25 mg tablet Take 25 mg by mouth twice daily with meals. 1/2 tabstwice daily ferrous sulfate 325 mg (65 mg iron) tablet Take 325 mg by mouth daily with breakfast. hydrALAZIN (more content not included)...[facility]01-26-2023 History of Present illness Narrative* Monik Dotson APRN.GLOBAL [employer]IMATE CHANGE RESEARCHER - 04/16/2022 2:56 PM EST Images from the original note were not included. NAME: Gopal Yates CLINIC NO.: [id number] DATE OF SERVICE: April 16, 2022 (Imer) Some elements in this clinic note that are critical to medical decision making have been carefully reviewed and included from a prior clinic note dated: February 18, 2022. (Dr. Rojas) Referring Provider: Dr. Douglas Juárez Additional Clinicians involved in Gopal Yates JR's care: DIAGNOSIS: Elevated [place]: Lambda light chains CKD induced anemia ASSESSMENT: 56 year old gentleman with longstanding and poorly controlled T2DM and HTN with renal failure. CKD induced anemia underwent lab workup for possible underlying primary marrow conditions that were negative. PLAN: Aranesp today and every 4 weeks. Labs prior to treatment. Labs in 4 weeks to include iron, B12 and folate. Okay to stop oral iron due to normal iron levels from 03/18/2022. Follow up in 8 weeks for labs and possible Aranesp. Follow up with Dr. Juárez for TSH 0.8. CURRENT TREATMENT: 12/04/2020 Aranesp 200 mcg initiated. HPI: CASE HISTORY: reverse chronological order October 2021 finished IV iron with nephrology. Updated Visit, April 16, 2022: Gopal Yates JR returns for follow-up and possible Aranesp. His last Aranesp 200 mcg injection was on 03/18/2022. Since his last visit there has been no significant medical changes. He denies abnormalbleeding and bruising. He remains on 1 oral iron pill daily. He denies constipation and GI upset. He is scheduled to see nephrology 05/05/2022. He thinks at that appointment he will be told he will need to start dialysis. He offers no new complaints today. No new issues, problems or concerns. Updated Visit, February 18, 2022: Gopla is feeling good. Here with Eneida. Hgb improving on current regimen. TSH suppressed. - defer to Dr. Juárez. Updated Visit, January 14, 2022: Gopal Yates JR returns for follow-up. His last Aranesp injection of 200 mcg was on 11/19/2021. He states that he is still tired and cold. Since the Aranesp injections he has been a little more energetic. He states that the iron infusions did not help at all. He denies bleeding and abnormal bruising.He is scheduled to see his ordnance technician in March 2022. Overall, he is doing well today. Updated Visit, December 17, 2021: Gopal returns and has significant improvement in anemia. Will not need Epo this time around. It has been 4 weeks. Anticipate he will be fine for at least another 4 weeks. Fatigue and feeling cold is unchanged. Otherwise doing well. Updated Visit, December 03, 2021: Gopal Yates JR returns today for follow-up. Aranesp 200 mcg initiated on 10/22/2021. To date, he has had 3 Aranesp injections. He still complains of feeling cold and tired. He denies any signs of bleeding. He states that he has completed 5 doses of IV iron at [facility] [place] [place]. Initial Visit, October 02, 2021: Gopal Yates JR presents today Hematology and Oncology evaluation. He is a 56 year old male who has a chronic history of T2DM and HTN. He has neuropathy and Renal failure as well as anemia that is most likely associated. Cold and fatigued and weak. 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 REVIEW OF SYSTEMS Per HPI and otherwise negative by full review of organ systems. ECOG PERFORMANCE STATUS: 0 PHYSICAL EXAMINATION: Vitals: BP 136/61 Pulse 59 Temp (Src) 97 (Temporal) Resp 18 Ht 6' 3.984 (1.93m) Wt 198 lb (89.8kg) SpO2 95% BMI 24.11 kg/(m^2). Body surface area is 2.19 meters squared. Exam limited to gross visualization where appropriate due to COVID-19. Gen.: This is an age-appropriate patient in no acute distress. Head: Appears atraumatic with no visible lesions. Eyes: Pupils equally round and reactive to light, extraocular muscles are intact. Neck: Supple. Mouth: Masked. Respiratory: Appears to be respiring comfortably. Neurologic: Nonfocal to gross visualization. Alert and oriented 3. Psychiatric: No evidence of inappropriate anxiety or depression. Skin: Visible areas of skin without rash, lesions, wounds or petechiae. ALLERGIES: ALLERGIES Allergen Reactions Sulfa (Sulfonamide * Unknown MEDICATIONS: aspirin 81 mg cap Take by mouth. bumetanide (BUMEX) 2 mg tablet Take 2 mg by mouth once daily. carvedilol (COREG) 25 mg tablet Take 25 mg by mouth twice daily with meals. 1/2 tabstwice daily ferrous sulfate 325 mg (65 mg iron) tablet Take 325 mg by mouth daily with breakfast. hydrALAZINE (APRESOLINE) 50 mg tablet Take 50 mg by mouth three times daily. insulin detemir (LEVEMIR FLEXPEN SUBCUTANEOUS) Inject subcutaneously. levothyroxine 100 mcg cap Take 100 mcg by mouth daily before breakfast. Multivitamin capsule Take 1 capsule by mouth once daily. NIFEdipine XL (ADALAT CC) 30 mg 24 hr tablet Take 30 mg by mouth once daily. potassium chloride (K-TAB) 10 mEq tablet Take 10 mEq by mouth twice daily. Omeprazole Magnesium 20 mg tablet Take 20 mg by mouth once daily. sodium bicarbonate 650 mg tablet Take 650 mg by mouth twice daily. ezetimibe (ZETIA) 10 mg tablet Take 10 mg by mouth once daily. LABORATORY VALUES: Hemoglobin (g/dL) Date Value 04/16/2022 10.5 Hematocrit (%) Date Value 04/16/2022 32.2 WBC (k/uL) Date Value 04/16/2022 5.82 Platelet Count (k/uL) Date Value 04/16/2022 136 DIAGNOSIS: (N18.32, D63.1) Anemia due to stage 3b chronic kidney disease (HCC) (primary encounter diagnosis) (E03.9) Hypothyroidism, unspecified type PAST MEDICAL HISTORY Diagnosis Date Anemia Anemia due to stage 3b chronic kidney disease (HCC) 10/08/2021 Chronic kidney disease Diabetes mellitus (HCC) Edema Hypothyroidism Mixed hyperlipidemia PAST SURGICAL HISTORY Procedure Laterality Date HEART CATHETERIZATION Social History Tobacco Use Smoking status: Never Passive exposure: Past Smokeless tobacco: Never Vaping Use Vaping Use: Never used Substance Use Topics Alcohol use: Not Currently Drug use: Never FAMILY HISTORY Problem Relation Age of Onset Cancer Mother Diabetes Father Heart disease Father Mental illness Father Monikshannon Dotson APRN.CNP Hematology and Oncology Services Provided at: [place], [place] CC: Dr. Douglas Juárez [address] [facility] [address] I spent a total of 30 minutes on the date of the service which included preparing to see the patient, [id number] patient care, completing clinical documentation, obtaining and/or reviewing separately obtained history, performing a medically appropriate examination, counseling and educating the pat ient/family/caregiver, ordering medications, tests, or procedures, independently interpreting results (not separately reported), and communicating results to the patient/family/caregiver. documented in this encounterUniversity Hospitals [facility]01-03-2023 Evaluation note* Encounter Date Diagnosis Assessment Notes Treatment Notes Treatment Clinical Notes Mar, CKD (chronic kidney disease) stage 4, GFR 15-29 ml/min (ICD-10 - N18.4) [employer] Other [id number] Evaluation note* Encounter Date Diagnosis Assessment Notes Treatment Notes Treatment Clinical Notes Mar, CKD (chronic kidney disease) stage 4, GFR 15-29 ml/min (ICD-10 - N18.4) CKD is progressing. Now Stage 5. SCr is up to 4.7 mg/dl and GRF is down to 13 ml/min . CKD is likely from diabetic s and cardiorenal syndrome. patient has significant proteinuria and risk for CKD progression Patiengt has not been eating well and losing weight. he feels tired. . No hyperkalemia. No fluid overload. No need for urgent GROUP MANAGER DM is well contrlled BP is well controlled continue Na Bicarb for metabolic acidosis. Continue Bumex 2 mg once daily Patient opted for PD. Will refer patient to general surgeon for PD catheter placement next visit if GFR continues to be < 15 ml/min with further decrease in appetite and weight Avoid NSAIDs Follow-up with the patient in 6 weeks Mar, Hypertensive chronic kidney disease w stg 1-4/unsp chr kdny (ICD-10 - I12.9) Blood pressure is controlled on medications . No medication changes needed Mar, Diabetic nephropathy (ICD-10 - E11.21) Hemoglobin A1c target below 7% . DM has been well controlled. patient has significant proteinuria Mar, CAD (coronary artery disease) (ICD-10 - I25.10) Patient was informed that ejection fraction around 40 to 45%. He has normal chest pain status post PCI of RCA at in 2019. Mar, Anemia of renal dise ase (ICD-10 - D63.1) patient received 2 loading doses of venofer last year. Iron storage this visit is adequate. VB12 and folate are Ok. . patient is currently on CAROL . follows with oncology clinic . last HGB > 10 g/dl Mar, Hyperparathyroidism (ICD-10 - E21.3) PTH is slightly high. no need for active VD Mar, Vitamin D deficiency (ICD-10 - E55.9) I asked the patient to take OTC VD 2000 U daily [employer] Other 11-30-2022 NoteHNO ID: [id number] Author: Conrad Rojas MD Service: ? Author Type: Physician Type: Progress Notes Filed: 02/21/2022 5:24 PM Note Text: NAME: Gopal Yates CLINIC NO.: [id number] DATE OF SERVICE: February 18, 2022 (Latricia) Some elements in this clinic note that are critical to medical decision making have been carefully reviewed and included from a prior clinic note dated:January 14, 2022 (Imer) Referring Provider: Dr. Douglas Juárez Additional Clinicians involved in Gopal Yates JR's care: DIAGNOSIS: Elevated [place]: Lambda light chains CKD induced anemia ASSESSMENT: 56 year old gentleman with longstanding and poorly controlled T2DM and HTN with renal failure. CKD induced anemia underwent lab workup for possible underlying primary marrow conditions that were negative. PLAN: Aranesp today and q 4 weeks Labs prior to treatment. Labs in 4 weeks to include iron and b12, folate RTC in 8 weeks for labs and possible Aranesp. See Monik Follow up with Dr. Juárez for TSH 0.8 CURRENT TREATMENT: 12/04/2020 Aranesp 200 mcg initiated. HPI: CASE HISTORY: reverse chronological order October 2021 finished IV iron with nephrology Updated Visit, February 18, 2022: Gopal is feeling good. Here with Eneida. Hgb improving on current regimen. TSH suppressed. - defer to Dr. Juárez. Updated Visit, January 14, 2022: Gopal Yates JR returns for follow-up. His last Aranesp injection of 200 mcg was on 11/19/2021. He states that he is still tired and cold. Since the Aranesp injections he has been a little more energetic. He states that the iron infusions did not help at all. He denies bleeding and abnormal bruising. 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 Overall, he is doing well today. Updated Visit, December 17, 2021: Gopal returns and has significant improvement in anemia. Will not need Epo this time around. It has been 4 weeks. Anticipate he will be fine for at least another 4 weeks. Fatigue and feeling cold is unchanged. Otherwise doing well. Updated Visit, December 03, 2021: Gopal Yates JR returns today for follow-up. Aranesp 200 mcg initiated on 10/22/2021. To date, he has had 3 Aranesp injections. He still complains of feeling cold and tired. He denies any signs of bleeding. He states that he has completed 5 doses of IV iron at [facility] [place]. Initial Visit, October 02, 2021: Gopal Yates JR presents today Hematology and Oncology evaluation. He is a 56 year old male who has a chronic history of T2DM and HTN. He has neuropathy and Renal failure as well as anemia that is most likely associated. Cold and fatigued and weak. 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 REVIEW OF SYSTEMS Per HPI and otherwise negative by full review of organ systems. ECOG PERFORMANCE STATUS: 0 PHYSICAL EXAMINATION: Vitals: BP 129/59 Pulse 51 Temp (Src) 97.7 (Temporal) Resp 16 Ht 6' 3.984 (1.93m) Wt 194 lb (88.0kg) SpO2 99% BMI 23.62 kg/(m2). Body surface area is 2.17 meters squared. Exam limited to gross visualization where appropriate due to COVID-19. Gen.: This is an age-appropriate patient in no acute distress. Head: Appears atraumatic with no visible lesions. Eyes: Pupils equally round and reactive to light, extraocular muscles are intact. Neck: Supple. Mouth: Masked. Respiratory: Appears to be respiring comfortably. Neurologic: Nonfocal to gross visualization. Alert and oriented ?3. Psychiatric: No evidence of inappropriate anxiety or depression. Skin: Visible areas of skin without rash, lesions, wounds or petechiae. ALLERGIES: ALLERGIES Allergen Reactions Sulfa (Sulfonamide * Unknown MEDICATIONS: aspirin 81 mg cap Take by mouth. bumetanide (BUMEX) 2 mg tablet Take 2 mg by mouth once daily. carvedilol (COREG) 25 mg tablet Take 25 mg by mouth twice daily with meals. 1/2 tabstwice daily ferrous sulfate 325 mg (65 mg iron) tablet Take 325 mg by mouth daily with breakfast. hydrALAZINE (APRESOLINE) 50 mg tablet Take 50 mg by mouth three times daily. insulin detemir (LEVEMIR FLEXPEN SUBCUTANEOUS) Inject subcutaneously. levothyroxine 100 mcg cap Take 100 mcg by mouth daily before breakfast. Multivitamin capsule Take 1 capsule by mouth once daily. NIFEdipine XL (ADALAT CC) 30 mg 24 hr tablet Take 30 mg by mouth once daily. potassium chloride (K-TAB) 10 mEq tablet Take 10 mEq by mouth twice daily. Omeprazole Magnesium 20 mg tablet Take 20 mg by mouth once daily. sodium bicarbonate 650 mg tablet Take 650 mg by mouth twice daily. ezetimibe (ZETIA) 10 mg tablet Take 10 mg by mouth once d (more content not included)...[facility]10-26-[facility] NoteHNO ID: [id number] Author: Monik Dotson APRN.GLOBAL CLIMATE CHANGE RESEARCHER Service: ? Author Type: Nurse Practitioner Type: Progress Notes Filed: 01/16/2022 4:13 PM Note Text: NAME: Gopal Yates [facility] NO.: [id number] DATE OF SERVICE: January 14, 2022 (Imer) Some elements in this clinic note that are critical to medical decision making have been carefully reviewed and included from a prior clinic note dated: December 17, 2021 (Dr. Rojas) Referring Provider: Dr. Douglas Juárez Additional Clinicians involved in Gopal Yates JR's care: DIAGNOSIS: Elevated Matt: Lambda light chains CKD induced anemia ASSESSMENT: 56 year old gentleman with longstanding and poorly controlled T2DM and HTN with renal failure. CKD induced anemia underwent lab workup for possible underlying primary marrow conditions that were negative. PLAN: 1. No Aranesp today. 2. Follow up in 5 weeks for labs and possible Aranesp. (Delay 1 week due to Holiday) 3. Will obtain records from [facility] [place] mainly interested in IV Iron dates. CURRENT TREATMENT: 12/04/2020 Aranesp 200 mcg initiated. HPI: CASE HISTORY: Updated Visit, January 14, 2022: Gopal Yates JR returns for follow-up. His last Aranesp injection of 200 mcg was on 11/19/2021. He states that he is still tired and cold. Since the Aranesp injections he has been a little more energetic. He states that the iron infusions did not help at all. He denies bleeding and abnormal bruising. 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 Overall, he is doing well today. Updated Visit, December 17, 2021: Gopal returns and has significant improvement in anemia. Will not need Epo this time around. It has been 4 weeks. Anticipate he will be fine for at least another 4 weeks. Fatigue and feeling cold is unchanged. Otherwise doing well. Updated Visit, December 03, 2021: Gopal Yates JR returns today for follow-up. Aranesp 200 mcg initiated on 10/22/2021. To date, he has had 3 Aranesp injections. He still complains of feeling cold and tired. He denies any signs of bleeding. He states that he has completed 5 doses of IV iron at [facility] [place]. Initial Visit, October 02, 2021: Gopal Yates JR presents today Hematology and Oncology evaluation. He is a 56 year old male who has a chronic history of T2DM and HTN. He has neuropathy and Renal failure as well as anemia that is most likely associated. Cold and fatigued and weak. 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 REVIEW OF SYSTEMS Per HPI and otherwise negative by full review of organ systems. ECOG PERFORMANCE STATUS: 0 PHYSICAL EXAMINATION: Vitals: BP 130/58 Pulse 57 Temp (Src) 97.6 (Temporal) Resp 16 Ht 6' 3.984 (1.93m) Wt 190 lb 9.6 oz (86.5kg) SpO2 97% BMI 23.21 kg/(m2). Body surface area is 2.15 meters squared. Exam limited to gross visualization where appropriate due to COVID-19. Gen.: This is an age-appropriate patient in no acute distress. Head: Appears atraumatic with no visible lesions. Eyes: Pupils equally round and reactive to light, extraocular muscles are intact. Neck: Supple. Mouth: Masked. Respiratory: Appears to be respiring comfortably. Neurologic: Nonfocal to gross visualization. Alert and oriented ?3. Psychiatric: No evidence of inappropriate anxiety or depression. Skin: Visible areas of skin without rash, lesions, wounds or petechiae. ALLERGIES: ALLERGIES Allergen Reactions Sulfa (Sulfonamide * Unknown MEDICATIONS: aspirin 81 mg cap Take by mouth. bumetanide (BUMEX) 2 mg tablet Take 2 mg by mouth once daily. carvedilol (COREG) 25 mg tablet Take 25 mg by mouth twice daily with meals. 1/2 tabstwice daily ferrous sulfate 325 mg (65 mg iron) tablet Take 325 mg by mouth daily with breakfast. hydrALAZINE (APRESOLINE) 50 mg tablet Take 50 mg by mouth three times daily. insulin detemir (LEVEMIR FLEXPEN SUBCUTANEOUS) Inject subcutaneously. levothyroxine 100 mcg cap Take 100 mcg by mouth daily before breakfast. Multivitamin capsule Take 1 capsule by mouth once daily. NIFEdipine XL (ADALAT CC) 30 mg 24 hr tablet Take 30 mg by mouth once daily. potassium chloride (K-TAB) 10 mEq tablet Take 10 mEq by mouth twice daily. Omeprazole Magnesium 20 mg tablet Take 20 mg by mouth once daily. sodium bicarbonate 650 mg tablet Take 650 mg by mouth twice daily. ezetimibe (ZETIA) 10 mg tablet Take 10 mg by mouth once daily. LABORATORY VALUES: Hemoglobin (g/dL) Date Value 01/14/2022 11.3 Hematocrit (%) Date Value 12/21 (more content not included)...[facility]10-26-[facility] Nurse Note* Harriet Childress MA - 01/14/2022 2:24 PM EDT Patient states he is tired and cold all the time. He states that the infusions don't seem to help but the shot he gets here does. Harriet Childress MA documented in this encounterUniversity Hospitals [facility]10-26-2022 History of Present illness Narrative* Monik Dotson APRN.CNP - 01/14/2022 2:05 PM EDT Images from the original note were not included. NAME: Nicolás Gopal [facility] NO.: [id number] DATE OF SERVICE: January 14, 2022 (Imer) Some elements in this clinic note that are critical to medical decision making have been carefully reviewed and included from a prior clinic note dated: December 17, 2021 (Dr. Rojas) Referring Provider: Dr. Douglas Juárez Additional Clinicians involved in Gopal Cheungsey 's care: DIAGNOSIS: Elevated Matt: Lambda light chains CKD induced anemia ASSESSMENT: 56 year old gentleman with longstanding and poorly controlled T2DM and HTN with renal failure. CKD induced anemia underwent lab workup for possible underlying primary marrow conditions that were negative. PLAN: 1. No Aranesp today. 2. Follow up in 5 weeks for labs and possible Aranesp. (Delay 1 week due to Holiday) 3. Will obtain records from [facility] [place] mainly interested in IV Iron dates. CURRENT TREATMENT: 12/04/2020 Aranesp 200 mcg initiated. HPI: CASE HISTORY: Updated Visit, January 14, 2022: Gopal Yates JR returns for follow-up. His last Aranesp injection of 200 mcg was on 11/19/2021. He states that he is still tired and cold. Since the Aranesp injections he has been a little more energetic. He states that the iron infusions did not help at all. He denies bleeding and abnormal bruising.He is scheduled to see his ordnance technician in March 2022. Overall, he is doing well today. Updated Visit, December 17, 2021: Gopal returns and has significant improvement in anemia. Will not need Epo this time around. It has been 4 weeks. Anticipate he will be fine for at least another 4 weeks. Fatigue and feeling cold is unchanged. Otherwise doing well. Updated Visit, December 03, 2021: Gopal Yates JR returns today for follow-up. Aranesp 200 mcg initiated on 10/22/2021. To date, he has had 3 Aranesp injections. He still complains of feeling cold and tired. He denies any signs of bleeding. He states that he has completed 5 doses of IV iron at [facility] [place]. Initial Visit, October 02, 2021: Gopal Yates JR presents today Hematology and Oncology evaluation. He is a 56 year old male who has a chronic history of T2DM and HTN. He has neuropathy and Renal failure as well as anemia that is most likely associated. Cold and fatigued and weak. 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 REVIEW OF SYSTEMS Per HPI and otherwise negative by full review of organ systems. ECOG PERFORMANCE STATUS: 0 PHYSICAL EXAMINATION: Vitals: BP 130/58 Pulse 57 Temp (Src) 97.6 (Temporal) Resp 16 Ht 6' 3.984 (1.93m) Wt 190lb 9.6 oz (86.5kg) SpO2 97% BMI 23.21 kg/(m^2). Body surface area is 2.15 meters squared. Exam limited to gross visualization where appropriate due to COVID-19. Gen.: This is an age-appropriate patient in no acute distress. Head: Appears atraumatic with no visible lesions. Eyes: Pupils equally round and reactive to light, extraocular muscles are intact. Neck: Supple. Mouth: Masked. Respiratory: Appears to be respiring comfortably. Neurologic: Nonfocal to gross visualization. Alert and oriented 3. Psychiatric: No evidence of inappropriate anxiety or depression. Skin: Visible areas of skin without rash, lesions, wounds or petechiae. ALLERGIES: ALLERGIES Allergen Reactions Sulfa (Sulfonamide * Unknown MEDICATIONS: aspirin 81 mg cap Take by mouth. bumetanide (BUMEX) 2 mg tablet Take 2 mg by mouth once daily. carvedilol (COREG) 25 mg tablet Take 25 mg by mouth twice daily with meals. 1/2 tabstwice daily ferrous sulfate 325 mg (65 mg iron) tablet Take 325 mg by mouth daily with breakfast. hydrALAZINE (APRESOLINE) 50 mg tablet Take 50 mg by mouth three times daily. insulin detemir (LEVEMIR FLEXPEN SUBCUTANEOUS) Inject subcutaneously. levothyroxine 100 mcg cap Take 100 mcg by mouth daily before breakfast. Multivitamin capsule Take 1 capsule by mouth once daily. NIFEdipine XL (ADALAT CC) 30 mg 24 hr tablet Take 30 mg by mouth once daily. potassium chloride (K-TAB) 10 mEq tablet Take 10 mEq by mouth twice daily. Omeprazole Magnesium 20 mg tablet Take 20 mg by mouth once daily. sodium bicarbonate 650 mg tablet Take 650 mg by mouth twice daily. ezetimibe (ZETIA) 10 mg tablet Take 10 mg by mouth once daily. LABORATORY VALUES: Hemoglobin (g/dL) Date Value 01/14/2022 11.3 Hematocrit (%) Date Value 01/14/2022 33.7 WBC (k/uL) Date Value 01/14/2022 8.54 Platelet Count (k/uL) Date Value 01/14/2022 168 DIAGNOSIS: (N18.32, D63.1) Anemia due to stage 3b chronic kidney disease (HCC) (primary encounter diagnosis) Plan: IRON + TIBC, FERRITIN BLD PAST MEDICAL HISTORY Diagnosis Date Anemia Anemia due to stage 3b chronic kidney disease (HCC) 10/08/2021 Chronic kidney disease Diabetes mellitus (HCC) Edema Hypothyroidism Mixed hyperlipidemia PAST SURGICAL HISTORY Procedure Laterality Date HEART CATHETERIZATION Social History Tobacco Use Smoking status: Never Passive exposure: Past Smokeless tobacco: Never Substance Use Topics Alcohol use: Not Currently Drug use: Never FAMILY HISTORY Problem Relation Age of Onset Cancer Mother Diabetes Father Heart disease Father Mental illness Father Monik Dotson APRN.GLOBAL CLIMATE CHANGE RESEARCHER Hematology and Oncology Services Provided at: [facility], [place], [place] CC: Dr. Douglas Juárez [address] [facility] [address] [address] Douglas Juárez [address] [facility] [place] [address] documented in this encounterUniversity Hospitals [facility]10-11-2022 Evaluation note* Encounter Date Diagnosis Assessment Notes Treatment Notes Treatment Clinical Notes Dec, Iron deficiency anemia (ICD-10 - D50.9) reviewed recent labs with patient. patient is encouraged to continue to [facility] DrImani do not need to proceed with Colon at this time. Dec, Phlegm in throat (ICD-10 - R09.89) patient states Mucinex oes seem to help this we will refer to pulmonology. [employer] Other 09-28-2022 NoteHNO ID: [id number] Author: Conrad Rojas MD Service: ? Author Type: Physician Type: Progress Notes Filed: 12/17/2021 4:03 PM Note Text: NAME: Gopal Yates CLINIC NO.: [id number] DATE OF SERVICE: December 17, 2021 (Latricia) Some elements in this clinic note that are critical to medical decision making have been carefully reviewed and included from a prior clinic note dated: December 03, 2021 (Imer) Referring Provider: Dr. Douglas Juárez Additional Clinicians involved in Gopal Yates JR's care: DIAGNOSIS: Elevated Matt:Lambda light chains CKD induced anemia ASSESSMENT: 56 year old gentleman with longstanding and poorly controlled T2DM and HTN with renal failure. CKD induced anemia underwent lab workup for possible underlying primary marrow conditions that were negative. PLAN: 1. No Aranesp today. 2. Follow up in weeks for labs and possible Aranesp. 3. Will obtain records from [facility] [place] mainly interested in IV Iron dates. CURRENT TREATMENT: 12/04/2020 Aranesp 200 mcg initiated. HPI: CASE HISTORY: Updated Visit, December 17, 2021: Gopal returns and has significant improvement in anemia. Will not need Epo this time around. It has been 4 weeks. Anticipate he will be fine for at least another 4 weeks. Fatigue and feeling cold is unchanged. Otherwise doing well. Updated Visit, December 03, 2021: Gopal Yates JR returns today for follow-up. Aranesp 200 mcg initiated on 10/22/2021. To date, he has had 3 Aranesp injections. He still complains of feeling cold and tired. He denies any signs of bleeding. He states that he has completed 5 doses of IV iron at [facility] [place]. Initial Visit, October 02, 2021: Gopal Yates JR presents today Hematology and Oncology evaluation. He is a 56 year old male who has a chronic history of T2DM and HTN. He has neuropathy and Renal failure as well as anemia that is most likely associated. Cold and fatigued and weak. 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 REVIEW OF SYSTEMS Per HPI and otherwise negative by full review of organ systems. ECOG PERFORMANCE STATUS: 0 PHYSICAL EXAMINATION: Vitals: BP 132/65 Pulse 56 Temp (Src) 97.7 (Temporal) Resp 16 Ht 6' 3.984 (1.93m) Wt 193 lb 9.6 oz (87.8kg) SpO2 98% BMI 23.58 kg/(m2). Body surface area is 2.17 meters squared. Exam limited to gross visualization where appropriate due to COVID-19. Gen.: This is an age-appropriate patient in no acute distress. Head: Appears atraumatic with no visible lesions. Eyes: Pupils equally round and reactive to light, extraocular muscles are intact. Neck: Supple. Mouth: Masked. Respiratory: Appears to be respiring comfortably. Neurologic: Nonfocal to gross visualization. Alert and oriented ?3. Psychiatric: No evidence of inappropriate anxiety or depression. Skin: Visible areas of skin without rash, lesions, wounds or petechiae. ALLERGIES: ALLERGIES Allergen Reactions Sulfa (Sulfonamide * Unknown MEDICATIONS: aspirin 81 mg cap Take by mouth. bumetanide (BUMEX) 2 mg tablet Take 2 mg by mouth once daily. carvedilol (COREG) 25 mg tablet Take 25 mg by mouth twice daily with meals. 1/2 tabstwice daily ferrous sulfate 325 mg (65 mg iron) tablet Take 325 mg by mouth daily with breakfast. hydrALAZINE (APRESOLINE) 50 mg tablet Take 50 mg by mouth three times daily. insulin detemir (LEVEMIR FLEXPEN SUBCUTANEOUS) Inject subcutaneously. levothyroxine 100 mcg cap Take 100 mcg by mouth daily before breakfast. Multivitamin capsule Take 1 capsule by mouth once daily. NIFEdipine XL (ADALAT CC) 30 mg 24 hr tablet Take 30 mg by mouth once daily. potassium chloride (K-TAB) 10 mEq tablet Take 10 mEq by mouth twice daily. Omeprazole Magnesium 20 mg tablet Take 20 mg by mouth once daily. sodium bicarbonate 650 mg tablet Take 650 mg by mouth twice daily. ezetimibe (ZETIA) 10 mg tablet Take 10 mg by mouth once daily. LABORATORY VALUES: Hemoglobin (g/dL) Date Value 12/17/2021 12.0 Hematocrit (%) Date Value 12/17/2021 36.5 WBC (k/uL) Date Value 12/17/2021 5.74 Platelet Count (k/uL) Date Value 12/17/2021 174 DIAGNOSIS: (N18.4, D63.1) Anemia due to stage 4 chronic kidney disease (HCC) (primary encounter diagnosis) PAST MEDICAL HISTORY Diagnosis Date Anemia Anemia due to stage 3b chronic kidney disease (HCC) 10/08/2021 Chronic kidney disease Diabetes mellitus (HCC) Edema Hypothyroidism (more content not included)...[facility] 12-17-2021 Instructions* Patient Instructions* Conrad Rojas MD - 12/17/2021 2:37 PM EDT 1. No Aranesp today. 2. Follow up in weeks for labs and possible Aranesp. documented in this encounterUniversity Hospitals Lake [facility]09-28-2022 History of Present illness Narrative* Conrad Rojas MD - 12/17/2021 2:33 PM EDT Images from the original note were not included. NAME: Gopal Yates [facility] NO.: [id number] DATE OF SERVICE: December 17, 2021 (Latricia) Some elements in this clinic note that are critical to medical decision making have been carefully reviewed and included from a prior clinic note dated: December 03, 2021 (Imer) Referring Provider: Dr. Douglas Juárez Additional Clinicians involved in Gopal Yates 's care: DIAGNOSIS: Elevated Matt:Lambda light chains CKD induced anemia ASSESSMENT: 56 year old gentleman with longstanding and poorly controlled T2DM and HTN with renal failure. CKD induced anemia underwent lab workup for possible underlying primary marrow conditions that were negative. PLAN: 1. No Aranesp today. 2. Follow up in weeks for labs and possible Aranesp. 3. Will obtain records from [facility] [place] mainly interested in IV Iron dates. CURRENT TREATMENT: 12/04/2020 Aranesp 200 mcg initiated. HPI: CASE HISTORY: Updated Visit, December 17, 2021: Gopal returns and has significant improvement in anemia. Will not need Epo this time around. It has been 4 weeks. Anticipate he will be fine for at least another 4 weeks. Fatigue and feeling cold is unchanged. Otherwise doing well. Updated Visit, December 03, 2021: Gopal Yates JR returns today for follow-up. Aranesp 200 mcg initiated on 10/22/2021. To date, he has had 3 Aranesp injections. He still complains of feeling cold and tired. He denies any signs of bleeding. He states that he has completed 5 doses of IV iron at [facility] [place]. Initial Visit, October 02, 2021: Gopal Yates JR presents today Hematology and Oncology evaluation. He is a 56 year old male who has a chronic history of T2DM and HTN. He has neuropathy and Renal failure as well as anemia that is most likely associated. Cold and fatigued and weak. 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 REVIEW OF SYSTEMS Per HPI and otherwise negative by full review of organ systems. ECOG PERFORMANCE STATUS: 0 PHYSICAL EXAMINATION: Vitals: BP 132/65 Pulse 56 Temp (Src) 97.7 (Temporal) Resp 16 Ht 6' 3.984 (1.93m) Wt 193lb 9.6 oz (87.8kg) SpO2 98% BMI 23.58 kg/(m^2). Body surface area is 2.17 meters squared. Exam limited to gross visualization where appropriate due to COVID-19. Gen.: This is an age-appropriate patient in no acute distress. Head: Appears atraumatic with no visible lesions. Eyes: Pupils equally round and reactive to light, extraocular muscles are intact. Neck: Supple. Mouth: Masked. Respiratory: Appears to be respiring comfortably. Neurologic: Nonfocal to gross visualization. Alert and oriented 3. Psychiatric: No evidence of inappropriate anxiety or depression. Skin: Visible areas of skin without rash, lesions, wounds or petechiae. ALLERGIES: ALLERGIES Allergen Reactions Sulfa (Sulfonamide * Unknown MEDICATIONS: aspirin 81 mg cap Take by mouth. bumetanide (BUMEX) 2 mg tablet Take 2 mg by mouth once daily. carvedilol (COREG) 25 mg tablet Take 25 mg by mouth twice daily with meals. 1/2 tabstwice daily ferrous sulfate 325 mg (65 mg iron) tablet Take 325 mg by mouth daily with breakfast. hydrALAZINE (APRESOLINE) 50 mg tablet Take 50 mg by mouth three times daily. insulin detemir (LEVEMIR FLEXPEN SUBCUTANEOUS) Inject subcutaneously. levothyroxine 100 mcg cap Take 100 mcg by mouth daily before breakfast. Multivitamin capsule Take 1 capsule by mouth once daily. NIFEdipine XL (ADALAT CC) 30 mg 24 hr tablet Take 30 mg by mouth once daily. potassium chloride (K-TAB) 10 mEq tablet Take 10 mEq by mouth twice daily. Omeprazole Magnesium 20 mg tablet Take 20 mg by mouth once daily. sodium bicarbonate 650 mg tablet Take 650 mg by mouth twice daily. ezetimibe (ZETIA) 10 mg tablet Take 10 mg by mouth once daily. LABORATORY VALUES: Hemoglobin (g/dL) Date Value 12/17/2021 12.0 Hematocrit (%) Date Value 12/17/2021 36.5 WBC (k/uL) Date Value 12/17/2021 5.74 Platelet Count (k/uL) Date Value 12/17/2021 174 DIAGNOSIS: (N18.4, D63.1) Anemia due to stage 4 chronic kidney disease (HCC) (primary encounter diagnosis) PAST MEDICAL HISTORY Diagnosis Date Anemia Anemia due to stage 3b chronic kidney disease (HCC) 10/08/2021 Chronic kidney disease Diabetes mellitus (HCC) Edema Hypothyroidism Mixed hyperlipidemia PAST SURGICAL HISTORY Procedure Laterality Date HEART CATHETERIZATION Social History Tobacco Use Smoking status: Never Passive exposure: Past Smokeless tobacco: Never Substance Use Topics Alcohol use: Not Currently Drug use: Never FAMILY HISTORY Problem Relation Age of Onset Cancer Mother Diabetes Father Heart disease Father Mental illness Father I spent a total of 20 minutes on the date of the service which included preparing to see the patient, [id number] patient care, completing clinical documentation, performing a medically appropriate examination, counseling and educating the patient/family/caregiver, and ordering medications, tests,or procedures. Conard Rojas MD, CPE Hematology and Oncology Services Provided at: [place], [place] CC: Dr. Douglas Juárez [address] [facility] [id number] [address] Douglas Juárez [address] [facility] [id number] documented in this encounterUniversity Hospitals Lake West [facility] Center09-20-2022 Evaluation note* Encounter Date Diagnosis Assessment Notes Treatment Notes Treatment Clinical Notes Nov, CKD (chronic kidney disease) stage 4, GFR 15-29 ml/min (ICD-10 - N18.4) He has advanced CKD stage IV . CKD is likely from diabetic s and cardiorenal syndrome. Serum creatinine has been around 3.5-3.9 mg/dl. GFR this visit 17 ml/min no ileana uremic symptoms . No need for urgent GROUP MANAGER DM is well contrlled BP is well controlled Volume is well controlled. Continue Bumex 2 mg once daily I discussed the option of PD versus hemodialysis. Patient opted for PD Avoid NSAIDs Follow-up with the patient in 4 months Nov, Hypertensive chronic kidney disease w stg 1-4/unsp chr kdny (ICD-10 - I12.9) Blood pressure is controlled on medications . No medication changes needed Nov, Metabolic acidosis (ICD-10 - E87.2) Last Serum bicarb 22. On HC03 tabs. Will continue same dose Nov, Diabetic nephropathy (ICD-10 - E11.21) Patient states that her diabetes is better controlled since he started on insulin. Hemoglobin A1c target below 7% . Nov, CAD (coronary artery disease) (ICD-10 - I25.10) Patient was informed that ejection fraction around 40 to 45%. He has normal chest pain status post PCI of RCA at [place] in 2019. Nov, Anemia of renal disease (ICD-10 - D63.1) patient received 2 loading doses of venofer in the last 2 visits. patient is currently on CAROL . last HGB > 11 g/dl Nov, Other I will check CB C next visit along with iron storage [employer] Other 09-15-2022 Miscellaneous Notes* Telephone Encounter - Monik Dotson APRNHYADEN - 12/04/2021 11:47 AM EDT Thanks! Monik Dotson APRN.AILYN * Telephone Encounter - Dana Simpson [facility] - 12/04/2021 10:15 AM EDT Brionna from [facility] [place] infusion center called back regarding patients iron infusions. She said he got 2 sets of 5 doses. Dates of infusion are: 07/22/21, 07/31/21, 08/06/21, 08/13/21, 08/20/21 10/20/21, 10/27/21, 11/03/21, 11/10/21, 11/17/21 documented in this encounterUniversity Hospitals Lake West Medical Center09-14-2022 NoteHNO ID: [id number] Author: Monik Dotson APRN.CNP Service: ? Author Type: Nurse Practitioner Type: Progress Notes Filed: 12/03/2021 2:17 PM Note Text: NAME: Nicolás [facility] NO.: [id number] DATE OF SERVICE: December 03, 2021 Referring Provider: Dr. Douglas Juárez (Elements copied from Dr. Rojas note dated October 02, 2021, have been reviewed and updated where appropriate, and all reflect current assessment and medical decision making during today's encounter, December 03, 2021) Additional Clinicians involved in Gopal [facility]'s care: DIAGNOSIS: Elevated Matt:Lambda light chains CKD induced anemia ASSESSMENT: 56 year old gentleman with longstanding and poorly controlled T2DM and HTN with renal failure. CKD induced anemia underwent lab workup for possible underlying primary marrow conditions that were negative. PLAN: 1. No Aranesp today. Hemoglobin 11.8. 2. Follow up in 2 weeks for labs and possible Aranesp. 3. Will obtain records from [facility] [place] mainly interested in IV Iron dates. CURRENT TREATMENT: 12/04/2020 Aranesp 200 mcg initiated. HPI: CASE HISTORY: Updated Visit, December 03, 2021: Gopal Yates JR returns today for follow-up. Aranesp 200 mcg initiated on 10/22/2021. To date, he has had 3 Aranesp injections. He still complains of feeling cold and tired. He denies any signs of bleeding. He states that he has completed 5 doses of IV iron at [facility] [place]. Initial Visit, October 02, 2021: Gopal Yates JR presents today Hematology and Oncology evaluation. He is a 56 year old male who has a chronic history of T2DM and HTN. He has neuropathy and Renal failure as well as anemia that is most likely associated. Cold and fatigued and weak. 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 REVIEW OF SYSTEMS Per HPI and otherwise negative by full review of organ systems. ECOG PERFORMANCE STATUS: 0 PHYSICAL EXAMINATION: Vitals: BP 142/69 Pulse 60 Temp (Src) 97.6 (Temporal) Resp 16 Ht 6' 3.984 (1.93m) Wt 197 lb 9.6 oz (89.6kg) SpO2 98% BMI 24.06 kg/(m2). Body surface area is 2.19 meters squared. Exam limited to gross visualization where appropriate due to COVID-19. Gen.: This is an age-appropriate patient in no acute distress. Head: Appears atraumatic with no visible lesions. Eyes: Pupils equally round and reactive to light, extraocular muscles are intact. Neck: Supple. Mouth: Masked. Respiratory: Appears to be respiring comfortably. Neurologic: Nonfocal to gross visualization. Alert and oriented ?3. Psychiatric: No evidence of inappropriate anxiety or depression. Skin: Visible areas of skin without rash, lesions, wounds or petechiae. ALLERGIES: ALLERGIES Allergen Reactions Sulfa (Sulfonamide * Unknown MEDICATIONS: aspirin 81 mg cap Take by mouth. bumetanide (BUMEX) 2 mg tablet Take 2 mg by mouth once daily. carvedilol (COREG) 25 mg tablet Take 25 mg by mouth twice daily with meals. 1/2 tabstwice daily ferrous sulfate 325 mg (65 mg iron) tablet Take 325 mg by mouth daily with breakfast. hydrALAZINE (APRESOLINE) 50 mg tablet Take 50 mg by mouth three times daily. insulin detemir (LEVEMIR FLEXPEN SUBCUTANEOUS) Inject subcutaneously. levothyroxine 100 mcg cap Take 100 mcg by mouth daily before breakfast. Multivitamin capsule Take 1 capsule by mouth once daily. NIFEdipine XL (ADALAT CC) 30 mg 24 hr tablet Take 30 mg by mouth once daily. potassium chloride (K-TAB) 10 mEq tablet Take 10 mEq by mouth twice daily. Omeprazole Magnesium 20 mg tablet Take 20 mg by mouth once daily. sodium bicarbonate 650 mg tablet Take 650 mg by mouth twice daily. ezetimibe (ZETIA) 10 mg tablet Take 10 mg by mouth once daily. LABORATORY VALUES: Hemoglobin (g/dL) Date Value 12/03/2021 11.8 Hematocrit (%) Date Value 12/03/2021 36.6 WBC (k/uL) Date Value 12/03/2021 6.78 Platelet Count (k/uL) Date Value 12/03/2021 136 DIAGNOSIS: Anemia due to stage 4 chronic kidney disease (HCC) - ICD9: 285.21, 585.4, ICD10: N18.4, D63.1 PAST MEDICAL HISTORY Diagnosis Date Anemia Anemia due to stage 3b chronic kidney disease (HCC) 10/08/2021 Chronic kidney disease Diabetes mellitus (HCC) Edema Hypothyroidism Mixed hyperlipidemia PAST SURGICAL HISTORY Procedure Laterality Date HEART CATHETERIZATION Social History Tobacco Use Smoking status: Never Smokeless tobacco: Never Substance Use Topics Alcohol use: Not (more content not included)...[facility] 12-03-2021 History of Present illness Narrative* Monik Dotson APRN.GLOBAL CLIMATE CHANGE RESEARCHER - 12/03/2021 2:00 PM EDT Images from the original note were not included. NAME: Gopal Yates [facility] NO.: [id number] DATE OF SERVICE: December 03, 2021 Referring Provider: Dr. Douglas Juárez (Elements copied from Dr. Rojas note dated October 02, 2021, have been reviewed and updated where appropriate, and all reflect current assessment and medical decision making during today's encounter, December 03, 2021) Additional Clinicians involved in Gopal Yates 's care: DIAGNOSIS: Elevated Matt:Lambda light chains CKD induced anemia ASSESSMENT: 56 year old gentleman with longstanding and poorly controlled T2DM and HTN with renal failure. CKD induced anemia underwent lab workup for possible underlying primary marrow conditions that were negative. PLAN: 1. No Aranesp today. Hemoglobin 11.8. 2. Follow up in 2 weeks for labs and possible Aranesp. 3. Will obtain records from [facility] [place] mainly interested in IV Iron dates. CURRENT TREATMENT: 12/04/2020 Aranesp 200 mcg initiated. HPI: CASE HISTORY: Updated Visit, December 03, 2021: Gopal Yates JR returns today for follow-up. Aranesp 200 mcg initiated on 10/22/2021. To date, he has had 3 Aranesp injections. He still complains of feeling cold and tired. He denies any signs of bleeding. He states that he has completed 5 doses of IV iron at [facility] [place]. Initial Visit, October 02, 2021: Gopal Yates JR presents today Hematology and Oncology evaluation. He is a 56 year old male who has a chronic history of T2DM and HTN. He has neuropathy and Renal failure as well as anemia that is most likely associated. Cold and fatigued and weak. 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 REVIEW OF SYSTEMS Per HPI and otherwise negative by full review of organ systems. ECOG PERFORMANCE STATUS: 0 PHYSICAL EXAMINATION: Vitals: BP 142/69 Pulse 60 Temp (Src) 97.6 (Temporal) Resp 16 Ht 6' 3.984 (1.93m) Wt 197lb 9.6 oz (89.6kg) SpO2 98% BMI 24.06 kg/(m^2). Body surface area is 2.19 meters squared. Exam limited to gross visualization where appropriate due to COVID-19. Gen.: This is an age-appropriate patient in no acute distress. Head: Appears atraumatic with no visible lesions. Eyes: Pupils equally round and reactive to light, extraocular muscles are intact. Neck: Supple. Mouth: Masked. Respiratory: Appears to be respiring comfortably. Neurologic: Nonfocal to gross visualization. Alert and oriented 3. Psychiatric: No evidence of inappropriate anxiety or depression. Skin: Visible areas of skin without rash, lesions, wounds or petechiae. ALLERGIES: ALLERGIES Allergen Reactions Sulfa (Sulfonamide * Unknown MEDICATIONS: aspirin 81 mg cap Take by mouth. bumetanide (BUMEX) 2 mg tablet Take 2 mg by mouth once daily. carvedilol (COREG) 25 mg tablet Take 25 mg by mouth twice daily with meals. 1/2 tabstwice daily ferrous sulfate 325 mg (65 mg iron) tablet Take 325 mg by mouth daily with breakfast. hydrALAZINE (APRESOLINE) 50 mg tablet Take 50 mg by mouth three times daily. insulin detemir (LEVEMIR FLEXPEN SUBCUTANEOUS) Inject subcutaneously. levothyroxine 100 mcg cap Take 100 mcg by mouth daily before breakfast. Multivitamin capsule Take 1 capsule by mouth once daily. NIFEdipine XL (ADALAT CC) 30 mg 24 hr tablet Take 30 mg by mouth once daily. potassium chloride (K-TAB) 10 mEq tablet Take 10 mEq by mouth twice daily. Omeprazole Magnesium 20 mg tablet Take 20 mg by mouth once daily. sodium bicarbonate 650 mg tablet Take 650 mg by mouth twice daily. ezetimibe (ZETIA) 10 mg tablet Take 10 mg by mouth once daily. LABORATORY VALUES: Hemoglobin (g/dL) Date Value 12/03/2021 11.8 Hematocrit (%) Date Value 12/03/2021 36.6 WBC (k/uL) Date Value 12/03/2021 6.78 Platelet Count (k/uL) Date Value 12/03/2021 136 DIAGNOSIS: Anemia due to stage 4 chronic kidney disease (HCC) - ICD9: 285.21, 585.4, ICD10: N18.4, D63.1 PAST MEDICAL HISTORY Diagnosis Date Anemia Anemia due to stage 3b chronic kidney disease (HCC) 10/08/2021 Chronic kidney disease Diabetes mellitus (HCC) Edema Hypothyroidism Mixed hyperlipidemia PAST SURGICAL HISTORY Procedure Laterality Date HEART CATHETERIZATION Social History Tobacco Use Smoking status: Never Smokeless tobacco: Never Substance Use Topics Alcohol use: Not Currently Drug use: Never FAMILY HISTORY Problem Relation Age of Onset Cancer Mother Diabetes Father Heart disease Father Mental illness Father Monik Dotson APRN.CNP Hematology and Oncology Services Provided at: [place], [place] CC: Dr. Douglas Juárez [id number] Douglas Juárez [address] [id number] documented in this encounterUniversity Hospitals Lake West Medical Center07-28-2022 NoteHNO ID: [id number] Author: Conrad Rojas MD Service: ? Author Type: Physician Type: Progress Notes Filed: 10/19/2021 2:04 PM Note Text: AMBULATORY TELEPHONE VISIT Gopal Yates JR has consented to this telephone encounter. Persons Present: patient Chief Complaint/Reason: CKD induced anemia HPI: 56 yo man with CKD induced anemia underwent lab workup for possible underlying primary marrow conditions that are negative. Reviewed labs with him and will proceed with Aranesp (epo) replacement. Data Reviewed: Most recent labs Assessment: (N18.32, D63.1) Anemia due to stage 3b chronic kidney disease (HCC) (primary encounter diagnosis) Plan: 1. Start Aranesp NEREYDA 2. Repeat every 2 weeks 3. RTC with me in 6 weeks 4. Labs every 2 weeks prior to Aranesp. Total Time Spent: 5 minutes Conrad Rojas MD, KELLY Hematology and Oncology Services Provided at: [place], [place] CC: Douglas Juárez MD [address] [place], [place] [id number]07-[facility] History of Present illness Narrative* Conrad Rojas MD - 10/16/2021 4:44 PM EDT Images from the original note were not included. AMBULATORY TELEPHONE VISIT Gopal Yates JR has consented to this telephone encounter. Persons Present: patient Chief Complaint/Reason: CKD induced anemia HPI: 56 yo man with CKD induced anemia underwent lab workup for possible underlying primary marrow conditions that are negative. Reviewed labs with him and will proceed with Aranesp (epo) replacement. Data Reviewed: Most recent labs Assessment: (N18.32, D63.1) Anemia due to stage 3b chronic kidney disease (HCC) (primary encounter diagnosis) Plan: 1. Start Aranesp NEREYDA 2. Repeat every 2 weeks 3. RTC with me in 6 weeks 4. Labs every 2 weeks prior to Aranesp. Total Time Spent: 5 minutes Conrad Rojas MD, CPE Hematology and Oncology Services Provided at: [place], [place] CC: Douglas Juárez MD [address] [place] [id number] documented in this encounterUniversity Hospitals Lake West [facility] Center07-14-2022 NoteHNO ID: [id number] Author: Conrad Rojas MD Service: ? Author Type: Physician Type: Progress Notes Filed: 10/08/2021 9:04 PM Note Text: NAME: Gopal Yates CLINIC NO.: [id number] DATE OF SERVICE: October 02, 2021 Referring Provider: Douglas Juárze Consultation requested by Dr. Juárez for an opinion regarding Mr. Gopal Yates JR, and my final recommendations will be communicated back to the requesting physician by way of shared medical record or letter via US mail. Additional Clinicians involved in Gopal Yates JR's care: DIAGNOSIS: Elevated Matt:Lambda light chains ASSESSMENT: 56 year old gentleman with longstanding and poorly controlled T2DM and HTN with renal failure and possible MGUS. Suspect anemia is due to Stage 3b CKD. PLAN: 1. Draw Epo and iron / folate/ B12 as well as Myeloma labs - call results. CURRENT TREATMENT: 1. HPI: CASE HISTORY: - Initial Visit, October 02, 2021: Gopal Yates JR presents today Hematology and Oncology evaluation. He is a 56 year old male who has a chronic history of T2DM and HTN. He has neuropathy and Renal failure as well as anemia that is most likely associated. Cold and fatigued and Weak. 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 REVIEW OF SYSTEMS Per HPI and otherwise negative by full review of organ systems. ECOG PERFORMANCE STATUS: 0 PHYSICAL EXAMINATION: Vitals: BP 138/58 Pulse 61 Temp (Src) 97.5 (Temporal) Resp 18 Ht 6' 4 (1.93m) Wt 202 lb (91.6kg) SpO2 97% BMI 24.60 kg/(m2). Body surface area is 2.22 meters squared. Exam limited to gross visualization where appropriate due to COVID-19. Gen.: This is an age-appropriate patient in no acute distress. Head: Appears atraumatic with no visible lesions. Eyes: Pupils equally round and reactive to light, extraocular muscles are intact. Neck: Supple. Mouth: Masked. Respiratory: Appears to be respiring comfortably. Neurologic: Nonfocal to gross visualization. Alert and oriented ?3. Psychiatric: No evidence of inappropriate anxiety or depression. Skin: Visible areas of skin without rash, lesions, wounds or petechiae. ALLERGIES: ALLERGIES Allergen Reactions - Sulfa (Sulfonamide * Unknown MEDICATIONS: aspirin 81 mg cap Take by mouth. bumetanide (BUMEX) 2 mg tablet Take 2 mg by mouth once daily. carvedilol (COREG) 25 mg tablet Take 25 mg by mouth twice daily with meals. 1/2 tabstwice daily ferrous sulfate 325 mg (65 mg iron) tablet Take 325 mg by mouth daily with breakfast. hydrALAZINE (APRESOLINE) 50 mg tablet Take 50 mg by mouth three times daily. insulin detemir (LEVEMIR FLEXPEN SUBCUTANEOUS) Inject subcutaneously. levothyroxine 100 mcg cap Take 100 mcg by mouth daily before breakfast. Multivitamin capsule Take 1 capsule by mouth once daily. NIFEdipine XL (ADALAT CC) 30 mg 24 hr tablet Take 30 mg by mouth once daily. potassium chloride (K-TAB) 10 mEq tablet Take 10 mEq by mouth twice daily. Omeprazole Magnesium (PRILOSEC OTC) 20 mg tablet Take 20 mg by mouth once daily. sodium bicarbonate 650 mg tablet Take 650 mg by mouth twice daily. ezetimibe (ZETIA) 10 mg tablet Take 10 mg by mouth once daily. LABORATORY VALUES: WBC (k/uL) Date Value 10/02/2021 6.20 RBC (m/uL) Date Value 10/02/2021 3.24 (L) Hemoglobin (g/dL) Date Value 10/02/2021 8.8 (L) Hematocrit (%) Date Value 10/02/2021 27.1 (L) MCV (fL) Date Value 10/02/2021 83.6 MCH (pg) Date Value 10/02/2021 27.2 MCHC (g/dL) Date Value 10/02/2021 32.5 RDW-CV (%) Date Value 10/02/2021 14.7 Platelet Count (k/uL) Date Value 10/02/2021 163 MPV (fL) Date Value 10/02/2021 10.2 Glucose (mg/dL) Date Value 10/02/2021 125 (H) BUN (mg/dL) Date Value 10/02/2021 64 (H) Creatinine (mg/dL) Date Value 10/02/2021 3.91 (H) Sodium (mmol/L) Date Value 10/02/2021 143 Potassium (mmol/L) Date Value 10/02/2021 4.0 Chloride (mmol/L) Date Value 10/02/2021 112 (H) CO2 (mmol/L) Date Value 10/02/2021 18 (L) Protein, Total (g/dL) Date Value 10/02/2021 7.1 10/02/2021 7.0 Albumin (g/dL) Date Value 10/02/2021 3.6 (L) Calcium, Total (mg/dL) Date Value 10/02/2021 8.9 Alkaline Phosphatase (U/L) Date Value 10/02/2021 237 (H) Bilirubin, Total (mg/dL) Date Value 10/02/2021 0.4 AST (U/L) Date Value 10/02/2021 23 ALT (U/L) Date Value 10/02/2021 23 M-Protein Concentration (g/dL) Date Value 10/02/2021 0.00 (more content not included)...[facility]07-14-2022 History of Present illness Narrative* Conrad Rojas MD - 10/02/2021 4:00 PM EDT Images from the original note were not included. NAME: Gopal Yates [facility] NO.: [id number] DATE OF SERVICE: October 02, 2021 Referring Provider: Douglas Juárez Consultation requested by Dr. Juárez for an opinion regarding Mr. Gopal Yates JR, and my final recommendations will be communicated back to the requesting physician by way of shared medical record or letter via US mail. Additional Clinicians involved in Gopal Yates JR's care: DIAGNOSIS: Elevated Matt:Lambda light chains ASSESSMENT: 56 year old gentleman with longstanding and poorly controlled T2DM and HTN with renal failure and possible MGUS. Suspect anemia is due to Stage 3b CKD. PLAN: 1. Draw Epo and iron / folate/ B12 as well as Myeloma labs - call results. CURRENT TREATMENT: 1. HPI: CASE HISTORY: Initial Visit, October 02, 2021: Gopal Yates JR presents today Hematology and Oncology evaluation. He is a 56 year old male who has a chronic history of T2DM and HTN. He has neuropathy and Renal failure as well as anemia that is most likely associated. Cold and fatigued and Weak. 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 REVIEW OF SYSTEMS Per HPI and otherwise negative by full review of organ systems. ECOG PERFORMANCE STATUS: 0 PHYSICAL EXAMINATION: Vitals: BP 138/58 Pulse 61 Temp (Src) 97.5 (Temporal) Resp 18 Ht 6' 4 (1.93m) Wt 202 lb (91.6kg) SpO2 97% BMI 24.60 kg/(m^2). Body surface area is 2.22 meters squared. Exam limited to gross visualization where appropriate due to COVID-19. Gen.: This is an age-appropriate patient in no acute distress. Head: Appears atraumatic with no visible lesions. Eyes: Pupils equally round and reactive to light, extraocular muscles are intact. Neck: Supple. Mouth: Masked. Respiratory: Appears to be respiring comfortably. Neurologic: Nonfocal to gross visualization. Alert and oriented 3. Psychiatric: No evidence of inappropriate anxiety or depression. Skin: Visible areas of skin without rash, lesions, wounds or petechiae. ALLERGIES: ALLERGIES Allergen Reactions Sulfa (Sulfonamide * Unknown MEDICATIONS: aspirin 81 mg cap Take by mouth. bumetanide (BUMEX) 2 mg tablet Take 2 mg by mouth once daily. carvedilol (COREG) 25 mg tablet Take 25 mg by mouth twice daily with meals. 1/2 tabstwice daily ferrous sulfate 325 mg (65 mg iron) tablet Take 325 mg by mouth daily with breakfast. hydrALAZINE (APRESOLINE) 50 mg tablet Take 50 mg by mouth three times daily. insulin detemir (LEVEMIR FLEXPEN SUBCUTANEOUS) Inject subcutaneously. levothyroxine 100 mcg cap Take 100 mcg by mouth daily before breakfast. Multivitamin capsule Take 1 capsule by mouth once daily. NIFEdipine XL (ADALAT CC) 30 mg 24 hr tablet Take 30 mg by mouth once daily. potassium chloride (K-TAB) 10 mEq tablet Take 10 mEq by mouth twice daily. Omeprazole Magnesium (PRILOSEC OTC) 20 mg tablet Take 20 mg by mouth once daily. sodium bicarbonate 650 mg tablet Take 650 mg by mouth twice daily. ezetimibe (ZETIA) 10 mg tablet Take 10 mg by mouth once daily. LABORATORY VALUES: WBC (k/uL) Date Value 10/02/2021 6.20 RBC (m/uL) Date Value 10/02/2021 3.24 (L) Hemoglobin (g/dL) Date Value 10/02/2021 8.8 (L) Hematocrit (%) Date Value 10/02/2021 27.1 (L) MCV (fL) Date Value 10/02/2021 83.6 MCH (pg) Date Value 10/02/2021 27.2 MCHC (g/dL) Date Value 10/02/2021 32.5 RDW-CV (%) Date Value 10/02/2021 14.7 Platelet Count (k/uL) Date Value 10/02/2021 163 MPV (fL) Date Value 10/02/2021 10.2 Glucose (mg/dL) Date Value 10/02/2021 125 (H) BUN (mg/dL) Date Value 10/02/2021 64 (H) Creatinine (mg/dL) Date Value 10/02/2021 3.91 (H) Sodium (mmol/L) Date Value 10/02/2021 143 Potassium (mmol/L) Date Value 10/02/2021 4.0 Chloride (mmol/L) Date Value 10/02/2021 112 (H) CO2 (mmol/L) Date Value 10/02/2021 18 (L) Protein, Total (g/dL) Date Value 10/02/2021 7.1 10/02/2021 7.0 Albumin (g/dL) Date Value 10/02/2021 3.6 (L) Calcium, Total (mg/dL) Date Value 10/02/2021 8.9 Alkaline Phosphatase (U/L) Date Value 10/02/2021 237 (H) Bilirubin, Total (mg/dL) Date Value 10/02/2021 0.4 AST (U/L) Date Value 10/02/2021 23 ALT (U/L) Date Value 10/02/2021 23 M-Protein Concentration (g/dL) Date Value 10/02/2021 0.00 DIAGNOSIS: (N18.32) Stage 3b chronic kidney disease (HCC) (primary encounter diagnosis) Plan: B2 MICROGLOBULIN B, CBC + DIFF, COMP METABOLIC PANEL, LD LACTATE DEHYDRO, PHOSPHORUS INORGANIC, PROTEIN ELECTROPHORESIS SERUM W/INTERP, MONOCLONAL PROTEIN, SERUM (BLOOD), URIC ACID BLOOD, CALCIUM IONIZED BLOOD, ERYTHROPOIETIN/EPO, KAPPA/GARDNER,FREE,SER, IRON + TIBC, FERRITIN BLD, VITAMIN B12 BLOOD, FOLATE SERUM (N18.32, D63.1) Anemia due to stage 3b chronic kidney disease (HCC) Plan: B2 MICROGLOBULIN B, CBC + DIFF, COMP METABOLIC PANEL, LD LACTATE DEHYDRO, PHOSPHORUS INORGANIC, PROTEIN ELECTROPHORESIS SERUM W/INTERP, MONOCLONAL PROTEIN, SERUM (BLOOD), URIC ACID BLOOD, CALCIUM IONIZED BLOOD, ERYTHROPOIETIN/EPO, KAPPA/GARDNER,FREE,SER, IRON + TIBC, FERRITIN BLD, VITAMIN B12 BLOOD, FOLATE SERUM (R76.8) Elevated serum immunoglobulin free light chains Plan: B2 MICROGLOBULIN B, CBC + DIFF, COMP METABOLIC PANEL, LD LACTATE DEHYDRO, PHOSPHORUS INORGANIC, PROTEIN ELECTROPHORESIS SERUM W/INTERP, MONOCLONAL PROTEIN, SERUM (BLOOD), URIC ACID BLOOD, CALCIUM IONIZED BLOOD, ERYTHROPOIETIN/EPO, KAPPA/GARDNER,FREE,SER, IRON + TIBC, FERRITIN BLD, VITAMIN B12 BLOOD, FOLATE SERUM PAST MEDICAL HISTORY Diagnosis Date Anemia Chronic kidney disease Diabetes mellitus (HCC) Edema Hypothyroidism Mixed hyperlipidemia PAST SURGICAL HISTORY Procedure Laterality Date HEART CATHETERIZATION Social History Tobacco Use Smoking status: Never Smoker Smokeless tobacco: Never Used Substance Use Topics Alcohol use: Not Currently Drug use: Never FAMILY HISTORY Problem Relation Age of Onset Cancer Mother Diabetes Father Heart disease Father Mental illness Father I spent a total of 40 minutes on the date of the service which included preparing to see the patient, [id number] patient care, completing clinical documentation, obtaining and/or reviewing separately obtained history, performing a medically appropriate examination, counseling and educating the pat ient/family/caregiver and ordering medications, tests, or procedures. Conrad Rojas MD, CPE Hematology and Oncology Services Provided at: [place], [place] CC: Douglas Juárez MD [address] [place] [address] Douglas Juárez MD, MD [address] [place] [address] documented in this encounterUniversity [facility] Evaluation note* Encounter Date Diagnosis Assessment Notes Treatment Notes Treatment Clinical Notes Sep, CKD (chronic kidney disease) stage 4, GFR 15-29 ml/min (ICD-10 - N18.4) He has advanced CKD stage IV . CKD is likely from diabetic s and cardiorenal syndrome. Serum creatinine has been around 3.5-3.9 mg/dl. GFR this visit 16 ml/min no ileana uremic symptoms . No need for urgent nut sorter operator DM is well contrlled Volume is well controlled. Continue Bumex 2 mg once daily I discussed the option of PD versus hemodialysis. Patient opted for PD Avoid NSAIDs Follow-up with the patient in 2 months Sep, Hypertensive chronic kidney disease w stg 1-4/unsp chr kdny (ICD-10 - I12.9) Blood pressure is controlled on medications . No medication changes needed Sep, Metabolic acidosis (ICD-10 - E87.2) Serum bicarb 22. No need for sodium bicarb Sep, Diabetic nephropathy (ICD-10 - E11.21) Patient states that her diabetes is better controlled since he started on insulin. Hemoglobin A1c target below 7% Sep, CAD (coronary artery disease) (ICD-10 - I25.10) Patient was informed that ejection fraction around 40 to 45%. He has normal chest pain status post PCI of RCA at [place] in [place]. Sep, Anemia of renal disease (ICD-10 - D63.1) Hemoglobin remains below 9 g/dL. Patient remains iron deficient despite loading dose of Venofer. I will repeat Venofer loading dose. We will start working with insurance for CAROL approval. Patient will be started on Retacrit 20,000 unit monthly for now once he approved by the insurance. I will asked the patient to see GI clinic to rule out GI bleed Sep, Other I will check CB C next visit along with iron storage [employer] Other 04-26-2022 Evaluation note* Encounter Date Diagnosis Assessment Notes Treatment Notes Treatment Clinical Notes Jun, CKD (chronic kidney disease) stage 4, GFR 15-29 ml/min (ICD-10 - N18.4) He has advanced CKD stage IV . CKD is likely from diabetic s and cardiorenal syndrome. Serum creatinine is better at 3.4 mg deciliter from 3.9. GFR better at 19 mm/min. BUN 49 no ileana uremic symptoms Volume is well controlled. Continue Bumex 2 mg once daily I discussed the option of PD versus hemodialysis. Patient opted for PD Follow-up with the patient in 2 months Jun, Hypertensive chronic kidney disease w stg 1-4/unsp chr kdny (ICD-10 - I12.9) Blood pressure is controlled on medications . No medication changes needed Jun, Metabolic acidosis (ICD-10 - E87.2) Serum bicarb 22. No need for sodium bicarb Jun, Diabetic nephropathy (ICD-10 - E11.21) Patient states that her diabetes is better controlled since he started on insulin. Hemoglobin A1c target below 7% patient does not remember the last hemoglobin A1c Jun, CAD (coronary artery disease) (ICD-10 - I25.10) Patient was informed that ejection fraction around 40 to 45%. He has normal chest pain status post PCI of RCA at [place] in [place]. Jun, Anemia of renal disease (ICD-10 - D63.1) Hemoglobin below g/dL. Iron saturation 23%. I will start the patient on Venofer 200 mg injection weekly for 4 weeks Jun, Other I will check CB C next visit along with iron storage [employer] Other 03-15-2022 Evaluation note* Encounter Date Diagnosis Assessment Notes Treatment Notes Treatment Clinical Notes May, CKD (chronic kidney disease) stage 4, GFR 15-29 ml/min (ICD-10 - N18.4) He has advanced CKD stage IV . CKD is likely from arterionephrosclerosis and cardiorenal syndrome. Serum creatinine is higher mostly because of her dose of diuretics. Serum creatinine 3.9. GFR 16 mm/min. BUN close to 100 no ileana uremic symptoms but he has fatigue which is might be from anemia but patient did not do CBC. I will check CBC along with iron studies I asked the patient to reduce Bumex to once daily next visit as he looks euvolemic I discussed the option of PD versus hemodialysis. Patient opted for PD Follow-up with the patient in 6 weeks May, Hypertensive chronic kidney disease w stg 1-4/unsp chr kdny (ICD-10 - I12.9) Blood pressure is controlled on medications May, Metabolic acidosis (ICD-10 - E87.2) Acidosis is improved with CO2 up to 26 mmol/L on sodium bicarbonate. May, Diabetic nephropathy (ICD-10 - E11.21) Patient states that her diabetes is better controlled since he started on insulin. May, CAD (coronary artery disease) (ICD-10 - I25.10) Patient was informed that ejection fraction around 40 to 45%. He has normal chest pain status post PCI of RCA at [place] in [place]. May, Anemia of renal disease (ICD-10 - D63.1) Patient has anemia on oral iron. No CBC is available. Will order CBC with next blood work. May, Other I will check CB C next visit along with iron storage [employer] Other Consult note Author Ashutosh Thomas [facility] May 21, 2022 10:40am Note Date/Time May 21, 2022 10:0 4am [facility] [address] [place] [address] Infect. Disease Consult Note Signed Patient: Gopal Yates Jr MR#: [id number] : 1965 Acct:[id number] Age/Sex: 56 / M Adm Date: 3 Loc: Room: [address] [place] [address] Type: ADM IN Attending Dr: Salvador Alonso MD Copies to: MD Douglas Boles MD Michael S Blank, MD~ HPI Data of Consult Consult date: 05/21/22 Requesting Physician: Salvador Alonso MD Primary Care Provider: Douglas Juárez MD Consult Narrative Reason for consult: Osteomyelitis of the right foot History of present illness: Mr. Yates is a 56 year old male who was sent to the ED yesterday by his plastics sheet finishing press operator, Dr. Griggs, because his right foot wound continued to show signs of infection. The patient recently had resection of his right fifth digit on 05/07 and completed a 10-day course of Augmentin. The patient states that his wound continued to drain after the operation and that his plastics sheet finishing press operator has scheduled surgery for today. He continues on IV vancomycin, which was started in the ED. 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 He is allergic to sulfa. The patient reports no symptoms currently. Denies fever, chills, night sweats, nausea, and vomiting. He has been afebrile during the course of his stay. White blood cell count 9.2/7.0. MRI of the right foot has been performed and the final report is pending. Preliminary wound cultures from 05/19 show no growth and blood cultures from 05/20 are pending. CC: Salvador Alonso MD Review of Systems Review of Systems All other systems reviewed & are negative unless noted below or in HPI PMFSH Vaccinated for COVID-19?: Yes Medical History Anemia CHF (congestive heart failure) CKD (chronic kidney disease) Diabetes type 2, controlled Hypertension Wound of foot Surgical History History of heart artery stent 2019 Hx of cardiac cath 2019 Family History Father Heart attack Heart failure Mother Breast cancer Social History Smoking Status: Former smoker Tobacco Type: cigarettes Substance Use Type: None Allergies and Medications Allergies and Active Meds Allergies Sulfa (Sulfonamide Antibiotics) Allergy (Verified 05/20/22 10:10) Hives Active Medications Acetaminophen (Acetaminophen 325 Mg Tablet) 650 mg PO Q6H PRN PRN Reason: Pain Scale 1 - 3 or fever Stop: 05/20/23 13:39 Bumetanide (Bumetanide 2 Mg Tablet) 2 mg PO DAILY [facility] Stop: 05/21/23 08:59 Last Admin: 05/21/22 08:00 Dose: Not Given Carvedilol (Carvedilol 12.5 Mg Tablet) 37.5 mg PO BID.WITH.MEALS [facility] Stop: 05/20/23 16:59 Last Admin: 05/21/22 07:52 Dose: 37.5 mg Cyproheptadine HCl (Cyproheptadine 4 Mg Tablet) 4 mg PO DAILY [facility] Stop: 05/21/23 08:59 Last Admin: 05/21/22 08:00 Dose: Not Given Ezetimibe (Ezetimibe 10 Mg Tablet) 10 mg PO DAILY [facility] Stop: 05/21/23 08:59 Last Admin: 05/21/22 08:00 Dose: Not Given Hydralazine HCl (Hydralazine 50 Mg Tablet) 50 mg PO TID [facility] Stop: 05/20/23 13:59 Last Admin: 05/21/22 08:00 Dose: Not Given Sodium Chloride (0.9 % Sodium Chloride) 500 mls @ 20 mls/hr IV PROTOCOL PRN PRN Reason: BLOOD TRANSFUSION Stop: 05/22/22 08:32 Insulin Glargine (Insulin Glargine 300 Units/3 Ml Insuln.Pen) 16 units SUBCUT QAM [facility] Stop: 05/21/23 08:59 Last Admin: 05/21/22 08:00 Dose: Not Given Isosorbide Dinitrate (Isosorbide Dinitrate 10 Mg Tablet) 10 mg PO TID [facility] Stop: 05/20/23 13:59 Last Admin: 05/21/22 08:00 Dose: Not Given Levothyroxine Sodium (Levothyroxine 100 Mcg Tablet) 100 mcg PO DAILY@0630 [facility] Stop: 05/21/23 06:29 Last Admin: 05/21/22 06:20 Dose: 100 mcg Liothyronine Sodium (Liothyronine 5 Mcg Tablet) 10 mcg PO DAILY [facility] Stop: 05/21/23 08:59 Last Admin: 05/21/22 08:00 Dose: Not Given Multivitamins (Multivitamin 1 Tab Tablet) 1 tab PO DAILY [facility] Stop: 05/21/23 08:59 Last Admin: 05/21/22 08:00 Dose: Not Given Nifedipine (Nifedipine Er.24hr 30 Mg Tab.Er.24) 30 mg PO BID [facility] Stop: 05/20/23 20:59 Last Admin: 05/21/22 08:01 Dose: Not Given Ondansetron HCl (Ondansetron 4 Mg/2 Ml Vial) 4 mg IV-PUSH Q8H PRN PRN Reason: Nausea And Vomiting Stop: 05/20/23 13:39 Oxycodone HCl (Oxycodone Ir 5 Mg Tablet) 5 mg PO Q6H PRN PRN Reason: Pain Scale 4 - 7 Pantoprazole Sodium (Pantoprazole 40 Mg Tablet.Dr) 40 mg PO BID [facility] Stop: 05/20/23 20:59 Last Admin: 05/21/22 08:01 Dose: Not Given Potassium Chloride (Potassium Chloride Er 20 Meq Tab.Er.Prt) 40 meq PO DAILY PRN PRN Reason: Hypokalemia Stop: 05/20/23 13:39 Sodium Bicarbonate (Sodium Bicarbonate 650 Mg Tablet) 1,300 mg PO BID [facility] Stop: 05/20/23 20:59 Last Admin: 05/21/22 08:01 Dose: Not Given Sodium Chloride (Sodium Chloride 0.9 % 10 Ml Syringe) 0 ml IV-PUSH PRN PRN PRN Reason: Flush Stop: 05/20/23 10:09 Last Admin: 05/20/22 15:57 Dose: 10 ml Vancomycin HCl (Vancomycin - Pharmacy Dosing 1 Each Miscell) 1 each IV ONCE PRN; Protocol PRN Reason: ZZ.Pharmacy Consult Vitamin D (Cholecalciferol 25 Mcg (1,000 Units) Tablet) 50 mcg PO DAILY [facility] Stop: 05/21/23 08:59 Last Admin: 05/21/22 08:00 Dose: Not Given Exam Physical Exam Vital Signs: Temp Pulse Resp BP Pulse Ox O2 Del Method 97.9 F 68 16 148/72 H 95 Room Air 05/21/22 07:59 05/21/22 07:59 05/21/22 07:59 05/21/22 07:59 05/21/22 07:59 05/21/22 07:59 Const General: cooperative, healthy appearing, comfortable and no acute distress HEENT Head: normal to inspection, normocephalic and atraumatic Ears: hearing grossly normal bilaterally Eyes Visual Holden: normal visual holden by confrontation Conjunctivae: conjunctivae normal Sclera: sclerae normal EOM: EOM intact bilaterally Neck Neck: normal visual inspection, full ROM and no lymphadenopathy Chest Chest palpation & inspection: normal inspection of the chest Resp Effort & Inspection: normal respiratory effort and able to speak in complete sentences Auscultation: clear to auscultation bilaterally Cardio Rate: regular rate Rhythm: regular rhythm Heart Sounds: S1 normal and S2 normal GI Inspection: normal to inspection, no edema and non-distended Palpation: soft Skin General: no rashes or lesions noted Neuro General: patient alert, patient awake, patient oriented x3 and moves all extremities Extrem General: no clubbing, cyanosis or edema and no calf tenderness Other: Right foot currently bandaged. No active signs of cellulitis, warmth, and erythema. Psych Appearance: grossly normal Mental Status: mental status grossly normal Results Labs 05/21/22 06:31 05/21/22 06:31 Labs: 05/20/22 11:35: Corrected WBC 9.2, Uncorrected WBC Count 9.2 05/20/22 11:35: BUN 77 H, Creatinine 5.50 H 05/21/22 06:31: Corrected WBC 7.0, Uncorrected WBC Count 7.0 05/21/22 06:31: BUN 72 H, Creatinine 5.24 H Microbiology Results Microbiology Narrative: 05/20/22 11:28 Superficial Wound Culture - Pending Toe,Right Fifth - Abscess 05/20/22 11:12 Blood Culture - Pending Blood - Left Antecubital 05/20/22 11:00 Blood Culture - Pending Blood - Left Antecubital Imaging and Cardiology Results Comments: MRI: IMPRESSION: ? NONEMERGENT FINDINGS, ALSO SEEN PREVIOUSLY. ? NO ACUTE INTRA-ABDOMINAL OR PELVIC ABNORMALITY. A&P - Infectious Disease (1) Osteomyelitis of right foot: Status: Acute (2) Diabetic foot ulcer with osteomyelitis: Status: Acute (3) Type 2 diabetes mellitus with diabetic chronic kidney disease: Status: Acute (4) CKD (chronic kidney disease) stage 5, GFR less than 15 ml/min: Status: Acute Plan This very pleasant gentleman is showing no active signs of systemic infection. He has been afebrile during the course of his stay. White blood cell count is currently 7.0. Final MRI report of the right foot is pending. Preliminary wound cultures from 05/19 show no growth. Blood cultures from yesterday are pending. The patient is scheduled to have surgery later today. Given Bacteroides organism from last hospital stay will add Zosyn did not cover more encompassing organisms and continue vancomycin Documented By: Ashutosh Thomas MD 05/21/22 0951 Signed By: <Electronically signed by MD Ashutosh Thomas> 05/21/[address] [facility] Work Phone: Consult note Author PHILLIP Luis [facility] May 21, 2022 12:02pm Note Date/Time May 21, 2022 11:5 8am [facility] [address] [place] [address] Podiatry Consult Note Signed Patient: Gopal Yates Jr MR#: [id number] : 1965 Acct:[id number] Age/Sex: 56 / M Adm Date: 3 Loc: 3T Room: [address] [place] [address] Type: ADM IN Attending Dr: Salvador Alonso MD Copies to: MD Douglas Boles MD Eugene R Kubitz,DPM, MS, CWS~ HPI Data of Consult Consult Date: 05/20/22 Requesting Physician: Salvador Alonso MD Primary Care Provider: Douglas uJárez MD Consult Narrative Reason for consult: Infected right foot History of present illness: Mr. Yates is a 56 year old male being seen at this time for consultation regarding infected right foot which is worsened and has been draining. He had been seen and treated in April by my partner Dr. Griggs who had performed partial amputation of the right fifth toe and fifth metatarsal approximately 05-07-2022. Patient was seen yesterday in the office and was sent to the emergency room per Dr. Griggs for admission and return to the operating room. Please note at the time of my consult late last evening there was no MRI report finalized. Patient denies fevers, chills, nausea, vomiting, sweats, diarrhea, chest pain, calf pain, injuries or trauma to right foot. Patient seems understand the need to completely offload right foot he understands need for elevation of foot. Patient understands he is a very complicated patient with multiple comorbidities that are brought him to this level of pathology and surgery and will also obviously impair healing. He is very pleasant individual with diabetes mellitus, neuropathy and advanced renal disease as well unfortunately. Osteomyelitis is led to the amputation of partial right foot as documented previously. Review of Systems Review of Systems All other systems reviewed & are negative unless noted below or in HPI PMFSH Vaccinated for COVID-19?: Yes Medical History Anemia CHF (congestive heart failure) CKD (chronic kidney disease) Diabetes type 2, controlled Hypertension Wound of foot Surgical History History of heart artery stent 2019 Hx of cardiac cath 2019 Family History Father Heart attack Heart failure Mother Breast cancer Social History Smoking Status: Former smoker Tobacco Type: cigarettes Substance Use Type: None Meds Medications and Allergies Allergies Sulfa (Sulfonamide Antibiotics) Allergy (Verified 05/20/22 10:10) Hives Home Medications aspirin 81 mg tablet,delayed release 81 mg PO DAILY 05/05/22 [History Confirmed 05/20/22] bumetanide 2 mg tablet 2 mg PO DAILY 05/05/22 [History Confirmed 05/20/22] carvedilol 25 mg tablet 37.5 mg PO BID 05/05/22 [History Confirmed 05/20/22] cholecalciferol (vitamin D3) 50 mcg (2,000 unit) capsule (Vitamin D3) 50 mcg PO DAILY 05/05/22 [History Confirmed 05/20/22] ezetimibe 10 mg tablet 10 mg PO DAILY 05/05/22 [History Confirmed 05/20/22] hydralazine 50 mg tablet 50 mg PO TID 05/05/22 [History Confirmed 05/20/22] insulin aspart U-100 100 unit/mL (3 mL) subcutaneous pen See Rx Instructions .Route .COMPLEX 05/05/22 [History Confirmed 05/20/22] insulin glargine 100 unit/mL subcutaneous solution (Lantus U-100 Insulin) 16 unit subcut QAM 05/05/22 [History Confirmed 05/20/22] isosorbide dinitrate 10 mg tablet 10 mg PO TID 05/05/22 [History Confirmed 05/20/22] levothyroxine 100 mcg tablet 100 mcg PO DAILY 05/05/22 [History Confirmed 05/20/22] multivitamin 1 tab PO DAILY 05/05/22 [History Confirmed 05/20/22] nifedipine 30 mg tablet,extended release 24 hr 30 mg PO BID 05/05/22 [History Confirmed 05/20/22] omeprazole 40 mg capsule,delayed release 40 mg PO BID 05/05/22 [History Confirmed 05/20/22] amoxicillin 500 mg-potassium clavulanate 125 mg tablet (Augmentin) 1 tab PO BID 14 days #28 tabs 05/08/22 [Rx Confirmed 05/20/22] sodium bicarbonate 650 mg tablet 1,300 mg PO BID 30 days #120 tabs 05/08/22 [Rx Confirmed 05/20/22] cyproheptadine 4 mg tablet 4 mg PO DAILY 05/20/22 [History Confirmed 05/20/22] liothyronine 5 mcg tablet 10 mcg PO DAILY 05/20/22 [History Confirmed 05/20/22] Exam Physical Exam Vital Signs: Temp Pulse Resp BP Pulse Ox O2 Del Method 97.9 F 68 16 148/72 H 95 Room Air 05/21/22 07:59 05/21/22 07:59 05/21/22 07:59 05/21/22 07:59 05/21/22 07:59 05/21/22 07:59 Narrative: Patient is awake alert and orient x3 resting comfortably in bed. Nurses presentthrough part of the examination. Dressing is intact right foot without any drainage coming through. The dressing was removed: Vascular examination shows that pulses appear to be intact and capillary refill less than 2 seconds skin is warm. Neurological examination: Neuropathy right lower extremity including motor, autonomic, sensory types: Nonpainful on examination removal of packing/dressings. Muscle skeletal examination: Right lower extremity weakness noted to toes however patient is able to dorsiflex/plantarflex right foot and ankle. He was not taking out of bed for weightbearing examination or gait evaluation at this point as the dressing was removed and foot was open. Orthopedic examination: Recent osteomyelitis to the lateral right foot required amputation of right fifth toe and fifth metatarsal almost to the base of the fifth metatarsal which appears to be intact per radiographic examination. Thereis a large defect in this location which will be documented as part of the dermatology/wound examination section. There does not appear to be any exposed bone at this level though definitely there is concern as there is infection. Dermatology examination/surgical wound right lateral foot: Large defect noted status post amputation of right fifth toe and partial fifth metatarsal from previous surgeon. Measurements are noted in patient's nursing section. Patientfoot does show infection in terms of mild erythema however it and there is drainage coming from the packing serosanguineous drainage as well as purulence from the lateral right fourth toe. The right fourth toe most likely would not be salvageable most likely have to be amputated. Examination from proximal to distal revealed no significant amount of purulence though there may be underlying abscess is not appreciated at this time please note MRI is pending. Radiology examination: X-ray 05-20-2022 reveals amputation obviously of the fifth toe and right fifth metatarsal partial base is intact. Appears to be possible osteomyelitis right fourth metatarsal region and fourth toe to a lesser degree. I have reviewed the film I agree with the reading. MRI read final result is still pending. Culture: Right foot surgical wound drainage: Pending 05-20-2022. Results Labs 05/21/22 06:31 05/21/22 06:31 ESR 88 mm/hr (0-19) H 05/20/22 11:35 Microbiology Microbiology: Microbiology - Results from entire visit 05/20/22 11:12 Blood - Left Antecubital Blood Culture - Preliminary No Growth 1 Day 05/20/22 11:00 Blood - Left Antecubital Blood Culture - Preliminary No Growth 1 Day Assessment/Plan (1) Osteomyelitis of right foot: Plan: 1. Patient seen today for consultation. 2. Physical examination was performed. 3. Patient's chart was reviewed. 4. Patient was advised at this time that x-rays are showing what appears to be possible fourth metatarsal osteomyelitis and fourth toe definitely does not looksalvageable I would recommend amputation of right fourth toe. However please note MRI is pending results should be available soon to direct more definitive diagnoses and preoperative planning. 5. Patient was advised at this time about wound care which will be performed daily until further notice please see orders. 6. Patient will be n.p.o. as of 8 AM 05-21-2022 with planned surgical debridementof surgical wound right lateral foot, amputation of right fourth toe. We discussed possibility, pending MRI of final reading, of bone biopsies as well asmore proximal amputation done at this time we would obviously attempt to salvageas much foot as possible. We will proceed with antibiotic lavage as well as packing as there is no way to close this large defect laterally. Possibly once infection is controlled wound vacuum would be of great assistance. 7. Patient was advised he is a very serious condition and limb salvage is in question is a high risk for amputation due to multiple comorbidities and patientvoiced complete understanding and acceptance. 8. Patient has a very good understanding of his pathologies as well as his needfor offloading right foot completely, elevation of right foot above heart level,avoid dependency, increase low-fat oral protein for nutritional assistance as well. 9. Thanks for consultation. Code(s): M86.9 - Osteomyelitis, unspecified (2) Ulcer of right foot with necrosis of bone: Code(s): L97.514 - Non-pressure chronic ulcer of other part of right foot with necrosis of bone (3) Diabetic foot ulcer with osteomyelitis: Code(s): E11.621 - Type 2 diabetes mellitus with foot ulcer; E11.69 - Type 2 diabetes mellitus with other specified complication; L97.509 - Non-pressure chronic ulcerof other part of unspecified foot with unspecified severity; M86.9 - Osteomyelitis, unspecified (4) Type 2 diabetes mellitus with diabetic chronic kidney disease: Code(s): E11.22 - Type 2 diabetes mellitus with diabetic chronic kidney disease (5) Hypertensive kidney disease with chronic kidney disease stage V: Code(s): I12.0 - Hypertensive chronic kidney disease with stage 5 chronic kidney disease or end stage renal disease; N18.5 - Chronic kidney disease, stage 5 (6) Anemia of renal disease: Code(s): N18.9 - Chronic kidney disease, unspecified; D63.1 - Anemia in chronic kidney disease (7) CKD (chronic kidney disease) stage 5, GFR less than 15 ml/min: Code(s): N18.5 - Chronic kidney disease, stage 5 (8) Surgical wound present: Code(s): T14.8XXA - Other injury of unspecified body region, initial encounter (9) Diabetes mellitus with diabetic neuropathy: Code(s): E11.40 - Type 2 diabetes mellitus with diabetic neuropathy, unspecified Documented By: Primo Luis DPM, , PHILLIP 05/14 1153 Signed By: <Electronically signed by HARRY Luis> 05/21/[address] [facility] Work Phone: Consult note Author Cristobal Butts [facility] May 21, 2022 1:27pm Note Date/Time May 21, 2022 1:27 pm [facility] [address] [place] [address] Nephrology Consult Note Signed Patient: Gopal Yates Jr MR#: [id number] : 1965 Acct:[id number] Age/Sex: 56 / M Adm Date: 3 Loc: Room: [address] [place] [address] Type: ADM IN Attending Dr: Salvador Alonso MD Copies to: MD Cristobal Boles MD Douglas M Hoy, MD~ Providers Consult Date: 05/21/22 Requesting Provider: Salvador Alonso MD Primary Care Provider: Douglas Juárez MD [facility] Reason for Consult: Chronic kidney disease stage V History of Present Illness: This is 56-year-old male patient with a past medical history of chronic kidney disease stage V from diabetic and hypertensive nephropathy follows with me in renal office. Coronary artery disease with history of myocardial infarction, heart failure with reduced ejection fraction, hyperlipidemia, insulin-dependent diabetes mellitus and hypothyroidism. Patient was referred to the hospital by his podiatric physician for worsening right lateral foot ulcer. Patient had recent partial fifth ray amputation of his right foot. Patient was discharged to finish antibiotics. Foot MRI from yesterday showed edema in the head of the second metatarsal as well as the proximal and middle phalanx of the fourth digitsuspicious for osteomyelitis. Edema is also noted at the fourth transmetatarsaljunction suspicious for osteomyelitis. There is also marrow edema affecting thehead of the third metatarsal as well as the proximal phalanx of the third digit suspicious for osteomyelitis. There is evidence of ulceration along the lateralsoft tissues of the right foot with subcutaneous emphysema. There is a fluid collection along the interspace between the heads of the third and the fourth metatarsal suspicious for abscess formation. There is diffuse soft tissue swelling consistent with cellulitis. Patient is scheduled for OR today at 5:30 for possible more amputation with I&D. Currently on vancomycin IV. Renal team is consulted for CKD management. Last office visit with me was March 2022 when he was referred to vascular surgeon for PD catheter placement which was supposed to be done next week. Patient has been following with hematology clinic here in [facility] for CAROL injection. Patient missed her last appointment. Hemoglobin this morning 7.7 g deciliter. Kidney function remains at baseline with today serum creatinine 5.2 mmol/L and GFR 11 mm/min. BUN 72. Potassium 4.0. Serum bicarb 20 Review of Systems Review of Systems Review of systems: 12 system review is negative today PMFSH Vaccinated for COVID-19?: Yes Medical History Anemia CHF (congestive heart failure) CKD (chronic kidney disease) Diabetes type 2, controlled Hypertension Wound of foot Surgical History History of heart artery stent 2019 Hx of cardiac cath 2019 Family History Father Heart attack Heart failure Mother Breast cancer Social History Smoking Status: Former smoker Tobacco Type: cigarettes Substance Use Type: None Meds Medications & Allergies Allergies Sulfa (Sulfonamide Antibiotics) Allergy (Verified 05/20/22 10:10) Hives Home Medications aspirin 81 mg tablet,delayed release 81 mg PO DAILY 05/05/22 [History Confirmed 05/20/22] bumetanide 2 mg tablet 2 mg PO DAILY 05/05/22 [History Confirmed 05/20/22] carvedilol 25 mg tablet 37.5 mg PO BID 05/05/22 [History Confirmed 05/20/22] cholecalciferol (vitamin D3) 50 mcg (2,000 unit) capsule (Vitamin D3) 50 mcg PO DAILY 05/05/22 [History Confirmed 05/20/22] ezetimibe 10 mg tablet 10 mg PO DAILY 05/05/22 [History Confirmed 05/20/22] hydralazine 50 mg tablet 50 mg PO TID 05/05/22 [History Confirmed 05/20/22] insulin aspart U-100 100 unit/mL (3 mL) subcutaneous pen See Rx Instructions .Route .COMPLEX 05/05/22 [History Confirmed 05/20/22] insulin glargine 100 unit/mL subcutaneous solution (Lantus U-100 Insulin) 16 unit subcut QAM 05/05/22 [History Confirmed 05/20/22] isosorbide dinitrate 10 mg tablet 10 mg PO TID 05/05/22 [History Confirmed 05/20/22] levothyroxine 100 mcg tablet 100 mcg PO DAILY 05/05/22 [History Confirmed 05/20/22] multivitamin 1 tab PO DAILY 05/05/22 [History Confirmed 05/20/22] nifedipine 30 mg tablet,extended release 24 hr 30 mg PO BID 05/05/22 [History Confirmed 05/20/22] omeprazole 40 mg capsule,delayed release 40 mg PO BID 05/05/22 [History Confirmed 05/20/22] amoxicillin 500 mg-potassium clavulanate 125 mg tablet (Augmentin) 1 tab PO BID 14 days #28 tabs 05/08/22 [Rx Confirmed 05/20/22] sodium bicarbonate 650 mg tablet 1,300 mg PO BID 30 days #120 tabs 05/08/22 [Rx Confirmed 05/20/22] cyproheptadine 4 mg tablet 4 mg PO DAILY 05/20/22 [History Confirmed 05/20/22] liothyronine 5 mcg tablet 10 mcg PO DAILY 05/20/22 [History Confirmed 05/20/22] Active Medications: Active Medications Acetaminophen (Acetaminophen 325 Mg Tablet) 650 mg PO Q6H PRN PRN Reason: Pain Scale 1 - 3 or fever Stop: 05/20/23 13:39 Bumetanide (Bumetanide 2 Mg Tablet) 2 mg PO DAILY [facility] Stop: 05/21/23 08:59 Last Admin: 05/21/22 08:00 Dose: Not Given Carvedilol (Carvedilol 12.5 Mg Tablet) 37.5 mg PO BID.WITH.MEALS [facility] Stop: 05/20/23 16:59 Last Admin: 05/21/22 07:52 Dose: 37.5 mg Cyproheptadine HCl (Cyproheptadine 4 Mg Tablet) 4 mg PO DAILY [facility] Stop: 05/21/23 08:59 Last Admin: 05/21/22 08:00 Dose: Not Given Ezetimibe (Ezetimibe 10 Mg Tablet) 10 mg PO DAILY [facility] Stop: 05/21/23 08:59 Last Admin: 05/21/22 08:00 Dose: Not Given Hydralazine HCl (Hydralazine 50 Mg Tablet) 50 mg PO TID [facility] Stop: 05/20/23 13:59 Last Admin: 05/21/22 08:00 Dose: Not Given Sodium Chloride (0.9 % Sodium Chloride) 500 mls @ 20 mls/hr IV PROTOCOL PRN PRN Reason: BLOOD TRANSFUSION Stop: 05/22/22 08:32 Piperacillin Sod/Tazobactam Sod (Zosyn 2.25gm) 2.25 gm in 100 mls @ 200 mls/hr IV Q6H [facility] Last Admin: 05/21/22 11:18 Dose: 200 mls/hr Insulin Glargine (Insulin Glargine 300 Units/3 Ml Insuln.Pen) 16 units SUBCUT QAM [facility] Stop: 05/21/23 08:59 Last Admin: 05/21/22 08:00 Dose: Not Given Isosorbide Dinitrate (Isosorbide Dinitrate 10 Mg Tablet) 10 mg PO TID [facility] Stop: 05/20/23 13:59 Last Admin: 05/21/22 08:00 Dose: Not Given Levothyroxine Sodium (Levothyroxine 100 Mcg Tablet) 100 mcg PO DAILY@0630 [facility] Stop: 05/21/23 06:29 Last Admin: 05/21/22 06:20 Dose: 100 mcg Liothyronine Sodium (Liothyronine 5 Mcg Tablet) 10 mcg PO DAILY [facility] Stop: 05/21/23 08:59 Last Admin: 05/21/22 08:00 Dose: Not Given Multivitamins (Multivitamin 1 Tab Tablet) 1 tab PO DAILY [facility] Stop: 05/21/23 08:59 Last Admin: 05/21/22 08:00 Dose: Not Given Nifedipine (Nifedipine Er.24hr 30 Mg Tab.Er.24) 30 mg PO BID [facility] Stop: 05/20/23 20:59 Last Admin: 05/21/22 08:01 Dose: Not Given Ondansetron HCl (Ondansetron 4 Mg/2 Ml Vial) 4 mg IV-PUSH Q8H PRN PRN Reason: Nausea And Vomiting Stop: 05/20/23 13:39 Oxycodone HCl (Oxycodone Ir 5 Mg Tablet) 5 mg PO Q6H PRN PRN Reason: Pain Scale 4 - 7 Pantoprazole Sodium (Pantoprazole 40 Mg Tablet.Dr) 40 mg PO BID [facility] Stop: 05/20/23 20:59 Last Admin: 05/21/22 08:01 Dose: Not Given Potassium Chloride (Potassium Chloride Er 20 Meq Tab.Er.Prt) 40 meq PO DAILY PRN PRN Reason: Hypokalemia Stop: 05/20/23 13:39 Sodium Bicarbonate (Sodium Bicarbonate 650 Mg Tablet) 1,300 mg PO BID [facility] Stop: 05/20/23 20:59 Last Admin: 05/21/22 08:01 Dose: Not Given Sodium Chloride (Sodium Chloride 0.9 % 10 Ml Syringe) 0 ml IV-PUSH PRN PRN PRN Reason: Flush Stop: 05/20/23 10:09 Last Admin: 05/20/22 15:57 Dose: 10 ml Vancomycin HCl (Vancomycin - Pharmacy Dosing 1 Each Miscell) 1 each IV ONCE PRN; Protocol PRN Reason: ALBERTA.Pharmacy Consult Vitamin D (Cholecalciferol 25 Mcg (1,000 Units) Tablet) 50 mcg PO DAILY [facility] Stop: 05/21/23 08:59 Last Admin: 05/21/22 08:00 Dose: Not Given Exam Physical Exam Vital Signs: Temp Pulse Resp BP Pulse Ox O2 Del Method 98.2 F 65 16 139/69 96 Room Air 05/21/22 13:05 05/21/22 13:05 05/21/22 13:05 05/21/22 13:05 05/21/22 13:05 05/21/22 07:59 Narrative: General: No acute distress Head :atraumatic normocephalic Eyes: PERRLA. Significant pallor Neck: no JVD no bruit. Heart: S1-S2. RRR Respiratory: Clear to auscultation. No wheezing. No crackles Abdomen: Soft, positive bowel sounds,no tenderness. Neurology: Awake alert oriented x3. No focal deficits Extremity. No cyanosis. Trace edema of right lower extremity. Left foot is wrapped by gauze Skin: No skin rash Results Labs 05/21/22 06:31 05/21/22 06:31 Labs: 05/21/22 06:31 BUN 72 H Creatinine 5.24 H Phosphorus 5.3 H Albumin 1.7 L Radiology Impressions Impressions - last 24 hours: Impressions Foot MRI 05/20/22 19:33 IMPRESSION: There is edema in the head of the second metatarsal as well as the proximal and middle phalanx of the fourth digit suspicious for osteomyelitis. Edema is also noted at the fourth tarsometatarsal junction suspicious for osteomyelitis. There is marrow edema affecting the head of the third metatarsal as well as the proximal phalanx of the third digit suspicious for osteomyelitis. There is evidence of ulceration along the lateral soft tissues of the right footwith subcutaneous emphysema. There is also a fluid collection along the interspace between the heads of the third and fourth metatarsals suspicious for abscess formation. There is diffuse soft tissue swelling consistent with cellulitis. There is edema throughout the intrinsic musculature suggesting myositis. Impression dictated by: Flynn Bradley M.D.05/21/2022 10:03 AM Dictation Location: [place] [address] Any impression(s) listed above is documentation that was entered by the reading physician into a diagnostic report(s) for Gopal Yates Jr. I have reviewed the report(s) and am incorporating any findings in the treatment plan of this patient where applicable. A&P - Nephrology Assessment/Plan (1) CKD (chronic kidney disease) stage 5, GFR less than 15 ml/min: Plan: Patient has advanced CKD from diabetic nephropathy. Patient follows with me in the renal office. Last visit was March 2022 when he was referred to general surgery for PD catheter placement which supposed to be done next week. Kidney function remains at baseline. There is no urgent need to start hemodialysis. Iwill continue to monitor renal function panel while he is on antibiotics. Please keep vancomycin level between 15 and 20 to avoid tubular injury. Avoid NSAIDs for pain control. Avoid IV contrast. Continue oral sodium bicarb. Check renal function panel in the morning (2) Diabetes mellitus with diabetic neuropathy: Plan: Patient has insulin-dependent diabetes mellitus. Currently he is on insulin glargine 16 units daily. I do not see insulin covering the meals. I will deferdiabetes measurement to the primary service (3) Hypertensive kidney disease with chronic kidney disease stage V: Plan: Blood pressure seems well controlled. Volume status is well controlled 2. Patient is on Bumex, Coreg, hydralazine, nifedipine. I will continue to monitorblood pressure and adjust medications as needed (4) Anemia of renal disease: Plan: Patient has anemia from CKD. Patient has been following with hematology clinic here in [facility]. Patient missed the last appointment. Patient is going toreceive 1 unit of RBCs today before surgery. I will check iron storage study. I will give the patient 1 dose of Epogen 20,000 units. Continue to monitor H&H (5) Osteomyelitis of right foot: Plan: Right foot MRI findings as as in HPI. Patient currently covered by vancomycin IV. Scheduled for OR today at 5:30 PM Documented By: Cristobal Butts MD 05/21/22 1315 Signed By: <Electronically signed by Cristobal Butts MD> 05/21/[address] [facility] Work Phone: Discharge summary Author Scotty Kahn [facility] May 25, 2022 5:23pm Note Date/Time May 25, 2022 10:3 0am [facility] [address] [place] [address] Discharge Summary Signed Patient: Gopal Yates Jr MR#: [id number] : 1965 Acct:[id number] Age/Sex: 56 / M Adm Date: 3 Loc: Room: [address] [place] [address]: Scotty Kahn DO Copies to: Bryan Velez DO, RES MD Scotty Mahoney DO~ Providers Date of Admission: 05/20/22 Date of Discharge: 05/25/22 Discharging Provider: Scotty Kahn Primary Care Provider: Douglas Juárez Consults: 05/20/22 13:45 Consult to Infectious Diseases Routine Consult to Nephrology Routine Consult to Podiatry Routine 05/21/22 01:50 Consult to Dietitian Routine 05/22/22 08:23 Consult to Case Management Routine Discharge Diagnosis (1) Osteomyelitis of right foot: (2) Diabetic foot ulcer with osteomyelitis: (3) Type 2 diabetes mellitus with diabetic chronic kidney disease: (4) Anemia of renal disease: (5) CKD (chronic kidney disease) stage 5, GFR less than 15 ml/min: Final Diagnosis Final Discharge Diagnosis: Osteomyelitis of right foot in setting of type 2 diabetes CKD stage V Anemia of renal disease Summary Hospital Course Hospital course: Mr. 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 Patient recently was discharged from the hospital on 05/14/22, where he underwentpartial right fifth ray amputation on the right foot and was discharged home on oral antibiotics. Patient had been following with podiatry who noted worsening Rfoot ulcer and was sent to ER. Imaging was suspicious for osteomyelitis and patient was admitted with infectious disease consult and IV vancomycin plus Zosyn. Podiatry was consulted and on 05/21/2022 patient underwent amputation of right fourth digit, I&D of deep abscess of right third intermetatarsal space andreconstruction of right lateral fifth metatarsal surgical wound. Plan will be for patient to be discharged home with woundvac on right surgical wound along with PICC line for continued IV antibiotic (Invanz) treatment per ID recommendations. Nephrology also followed patient throughout hospital stay to manage CKD stage 5 and relevant comorbidities including anemia of chronic renal disease. Patient has already seen general surgery on outpatient basis for placement of PD cath which is supposed to be happening in the coming weeks. Nephrology noted no urgent need for hemodialysis and recommended continued outpatient f/u with nephrology, hematology and general surgery. Patient was seen and examined on day of discharge with in room. He is reporting that he is feeling much better and ready for discharge home today. Patient did have 1 bout of diarrhea during hospital stay which he thinks is related to some bad fish he had as it prompted 3 loose bowel movements. Since then he has not had no loose bowel movements and that has completely resolved. Otherwise, currently patient denies any chest pain, shortness of breath, abdominal pain, nausea, vomiting, diarrhea, constipation or bilateral upper or lower extremity pain. Patient is stable and ready for discharge home. Condition Condition at Discharge: Stable Time Spent with Patient Time spent providing/coordinating discharge services (# min): 30 Surgeries and Procedures Operation Date: 05/21/22 17:40 Actual Procedures p OR Right Foot Debridement, 4th Toe & Possible 4th Metatarsal Amputation(Right)- Primo Luis DPM, Operation Date: 05/22/22 14:05 Actual Procedures p IR PICC Line Insertion(Left) - Nathan Molina MD Diagnostic Studies Completed and Pending Studies Pending studies at discharge: 05/20/22 11:12 Blood Culture Stat 05/21/22 18:37 Wound Culture (Deep) Routine 05/25/22 20:00 Vancomycin,Random [TOX] Timed Preliminary micro results at discharge 05/21/22 18:37 Anaerobic Culture - Preliminary Foot,Right - Ulcer Bacteroides fragilis 05/20/22 11:12 Blood Culture - Preliminary Blood - Left Antecubital No Growth 4 Days 05/20/22 11:00 Blood Culture - Preliminary Blood - Left Antecubital No Growth 4 Days Labs on day of discharge: 05/25/22 06:38: POC Glucose 101, POC Glucose Comment Glu2: cleaned meter 05/25/22 05:10: PHA Creatinine Clear 21.99, Sodium 134 L, Potassium 4.2, Chloride 104, Carbon Dioxide 21.0 L, Anion Gap 13.2, BUN 68 H, Creatinine 4.55 H, Est GFR ( Amer) 16, Est GFR (Non-Af Amer) 13, Glucose 94, Calcium 7.8 L, Phosphorus 4.1, Albumin 1.7 L 05/25/22 05:10: Corrected WBC 7.7, Uncorrected WBC Count 7.7, RBC 2.90 L, Hgb 7.9 L, Hct 23.7 L, MCV 81.7 L, MCH 27.4 L, MCHC 33.6, RDW 15.0 H, Plt Count 191, MPV 8.6, Neut % (Auto) 75.9, Lymph % (Auto) 9.2, Edmunds % (Auto) 10.5, Eos % (Auto) 3.4, Baso % (Auto) 1.0, Nucleat RBC Rel Count 0.0, Neut # (Auto) 5.8, Lymph # (Auto) 0.7 L, Edmunds # (Auto) 0.8, Eos # (Auto) 0.3, Baso # (Auto) 0.1 05/24/22 20:39: POC Glucose 150, POC Glucose Comment Glu2: cleaned meter 05/24/22 16:50: POC Glucose 131 05/24/22 12:07: POC Glucose 147 Exam Physical Exam Vital Signs: Temp Pulse Resp BP Pulse Ox O2 Del Method 98.0 F 62 16 153/77 H 94 L Room Air 05/25/22 08:00 05/25/22 08:00 05/25/22 08:00 05/25/22 08:00 05/25/22 08:00 05/25/22 08:00 Narrative: General -awake, alert, oriented ?3, not in acute distress, lying in upright position, does not appear to be respiratory distress Cardiovascular - regular rate and rhythm, S1 & S2 Pulmonary - clear to auscultation bilaterally, no RRW Gastrointestinal - abdomen is soft, nondistended, nontender, normoactive bowel sounds, there is no guarding, rebound or rigidity Extremities -wound VAC in place on right lateral foot, no swelling or erythema noted around area outside of wound VAC, otherwise no edema, clubbing or cyanosis of bilateral extremities Neurological -no focal neurological deficit noted, 5/5 muscle strength in all extremities +++++ I personally examined the patient on this day of the encounter. I reviewed the relevant history, performed the quiñonez elements of the physical examination, and coordinated the plan of care and I confirmed the resident's medical documentation as written. Discharge Plan Discharge Plan Patient Disposition: Home Activity: Ambulate as Tolerated Diet: Diabetic and Low-Sodium Additional Instructions: Obtain weekly CRP levels at infusion center as ordered. Send results to Dr. Thomas Maintain and perform routine care to left upper arm PICC line. *Change dressing every 7 days and PRN-- sterile antimicrobial dressing applied per protocol. Change statlock with every dressing change. *Administer IV antibiotics as ordered Dietitian recommendations: *Boost glucose control, 1 container, twice daily with meals Change wound vac every other day and PRN to right foot: *Continuous KCI @ 150 mmHg-- MWF Monitor glucose levels as before. Instructions: Heart Failure, Adult (DC) Prescriptions: New ertapenem [Invanz] 1 gram recon soln 0.5 g IV DAILY 40 Days Qty: 40 0RF Continued liothyronine 5 mcg tablet 10 mcg PO DAILY Patient Comments: TAKE TWO TABLETS BY MOUTH ONCE DAILY cyproheptadine 4 mg tablet 4 mg PO BID Patient Comments: TAKE ONE TABLET BY MOUTH TWICE A DAY nifedipine 30 mg tablet extended release 24hr 30 mg PO BID carvedilol 25 mg tablet 37.5 mg PO BID bumetanide 2 mg tablet 2 mg PO DAILY aspirin 81 mg tablet,delayed release (DR/EC) 81 mg PO DAILY levothyroxine 100 mcg tablet 100 mcg PO DAILY hydralazine 50 mg tablet 50 mg PO TID ezetimibe 10 mg tablet 10 mg PO DAILY isosorbide dinitrate 10 mg tablet 10 mg PO TID insulin glargine [Lantus U-100 Insulin] 100 unit/mL solution 16 unit subcut QAM omeprazole 40 mg capsule,delayed release(DR/EC) 40 mg PO BID insulin aspart U-100 100 unit/mL (3 mL) insulin pen See Rx Instructions .ROUTE .COMPLEX Rx Instructions: <140 give 4 units 140-200 give 8 units >200 give 12 units cholecalciferol (vitamin D3) [Vitamin D3] 50 mcg (2,000 unit) capsule 50 mcg PO DAILY multivitamin Tablet 1 tab PO DAILY sodium bicarbonate 650 mg Tablet 1,300 mg PO BID 30 Days Qty: 120 2RF Discontinued amoxicillin-pot clavulanate [Augmentin] 500-125 mg tablet 1 tab PO BID 14 Days Qty: 28 0RF Other Ambulatory Orders: C-Reactive Protein (Q7D) Timeframe: 20220527 Location: Determined by Patient Ordered By: Ashutosh Thomas C-Reactive Protein (Q7D) Timeframe: 20220603 Location: Determined by Patient Ordered By: Ashutosh Thomas C-Reactive Protein (Q7D) Timeframe: 20220610 Location: Determined by Patient Ordered By: Ashutosh Thomas C-Reactive Protein (Q7D) Timeframe: 20220617 Location: Determined by Patient Ordered By: Ashutosh Thomas Follow Up: [facility] – [place] Infusion Center [Outside] - 05/27/22 2:30 pm (For wound vac change, PICC line dressing change, and weekly labs) Sohan Kellogg MD [Active Staff] - 05/28/22 (PD Catheter Insertion scheduled forthe following date. ) Ashutosh Thomas MD [Active Staff] - 06/29/22 1:45 pm (You have been scheduled fora follow up appointment for the following date and time, please call to reschedule if needed.) Eddy Griggs DPM [Active Staff] - 05/28/22 3:30 pm (You have been scheduled for a follow up appointment for the following date and time, please call to reschedule if needed.) Douglas Juárez MD [Primary Care Provider] - 05/29/22 10:45 am (You have been scheduled for a follow up appointment for the following date and time, please call to reschedule if needed.) Yvonne Barboza MD [Active Staff] - 06/03/22 3:40 pm (Previously scheduled appointment. ) Documented By: Scotty Kahn DO [id number] Signed By: <Electronically signed by Scotty Kahn DO> 05/25/22 1723 <Electronically signed by DO NADIR Velez> 05/25/[address] [facility] Work Phone: Evaluation note* Diagnosis Stage 3b chronic kidney disease (HCC)- Primary Anemia due to stage 3b chronic kidney disease (HCC) Elevated serum immunoglobulin free light chains Other nonspecific findings on examination of blood [facility] Diagnosis Anemia due to stage 3b chronic kidney disease (HCC)- Primary [facility] Diagnosis Anemia due to stage 3b chronic kidney disease (HCC)- Primary [facility] Diagnosis Anemia due to stage 3b chronic kidney disease (HCC)- Primary [facility] noteNo assessment information available[facility] Work Phone: Evaluation note* Diagnosis Anemia due to stage 4 chronic kidney disease (HCC)- Primary [facility] Diagnosis Anemia due to stage 4 chronic kidney disease (HCC)- Primary documented in this encounter [facility] note* Diagnosis Anemia due to stage 3b chronic kidney disease (HCC)- Primary Hypothyroidism, unspecified type documented in this encounter [facility] note* Diagnosis Anemia due to stage 3b chronic kidney disease (HCC)- Primary documented in this encounter [facility] note* Diagnosis Anemia due to stage 3b chronic kidney disease (HCC)- Primary [facility]* Diagnosis Anemia due to stage 3b chronic kidney disease (HCC)- Primary Hypothyroidism, unspecified type [facility]* Diagnosis Onset Date Resolution Status Osteomyelitis acute [facility] Work Phone: evaluation note* Diagnosis Onset Date Resolution Status Anemia of renal disease acut e CKD (chronic kidney disease) stage 5, GFR less than 15 ml/min acute Diabetic foot ulcer with osteomyelitis acute Hypertensive kidney disease with chronic kidney disease stage V acute Metabolic acidosis acute Osteomyelitis acute Osteomyelitis of right foot acute Type 2 diabetes mellitus wit h diabetic chronic kidney disease acute Ulcer of right foot with necrosis of bone acute [facility] Work Phone: evaluation note* Diagnosis Onset Date Resolution Status Anemia of renal disease acut e CKD (chronic kidney disease) stage 5, GFR less than 15 ml/min acute Diabetic foot ulcer with osteomyelitis acute Hypertensive kidney disease with chronic kidney disease stage V acute Metabolic acidosis acute Osteomyelitis acute Osteomyelitis of right foot acute Type 2 diabetes mellitus wit h diabetic chronic kidney disease acute Ulcer of right foot with necrosis of bone acute CKD (chronic kidney disease) stage 5, GFR less than 15 ml/min acute Diabetic foot ulcer with osteomyelitis acute Hypertensive kidney disease with chronic kidney disease stage V acute Osteomyelitis of right foot acute Ulcer of right foot with necrosis of bone acute [facility] Work Phone: evaluation note* Diagnosis Onset Date Resolution Status Anemia of renal disease acut e CKD (chronic kidney disease) stage 5, GFR less than 15 ml/min acute Diabetic foot ulcer with osteomyelitis acute Hypertensive kidney disease with chronic kidney disease stage V acute Metabolic acidosis acute Osteomyelitis acute Osteomyelitis of right foot acute Type 2 diabetes mellitus wit h diabetic chronic kidney disease acute Ulcer of right foot with necrosis of bone acute Anemia of renal disease acut e CKD (chronic kidney disease) stage 5, GFR less than 15 ml/min acute Diabetes mellitus with diabetic neuropathy acute Diabetic foot ulcer with osteomyelitis acute Hypertensive kidney disease with chronic kidney disease stage V acute Osteomyelitis of right foot acute Surgical wound present acute Type 2 diabetes mellitus wit h diabetic chronic kidney disease acute Ulcer of right foot with necrosis of bone acute [facility] Work Phone: Evaluation noteNo [employer] Other Evaluation note* Diagnosis Onset Date Resolution Status Anemia of renal disease acut e CKD (chronic kidney disease) stage 5, GFR less than 15 ml/min acute Diabetic foot ulcer with osteomyelitis acute Hypertensive kidney disease with chronic kidney disease stage V acute Metabolic acidosis acute Osteomyelitis acute Osteomyelitis of right foot acute Type 2 diabetes mellitus wit h diabetic chronic kidney disease acute Ulcer of right foot with necrosis of bone acute Anemia of renal disease acut e CKD (chronic kidney disease) stage 5, GFR less than 15 ml/min acute Diabetes mellitus with diabetic neuropathy acute Diabetic foot ulcer with osteomyelitis acute Hypertensive kidney disease with chronic kidney disease stage V acute Osteomyelitis of right foot acute Surgical wound present acute Type 2 diabetes mellitus wit h diabetic chronic kidney disease acute Ulcer of right foot with necrosis of bone acute MARTHA (acute kidney injury) ac adela Anemia acute CKD (chronic kidney disease) stage 5, GFR less than 15 ml/min acute Fever acute History of fever acute Osteomyelitis acute [facility] Work Phone: Evaluation note* Diagnosis Onset Date Resolution Status Anemia of renal disease acut e CKD (chronic kidney disease) stage 5, GFR less than 15 ml/min acute Diabetic foot ulcer with osteomyelitis acute Hypertensive kidney disease with chronic kidney disease stage V acute Metabolic acidosis acute Osteomyelitis acute Osteomyelitis of right foot acute Type 2 diabetes mellitus wit h diabetic chronic kidney disease acute Ulcer of right foot with necrosis of bone acute Anemia of renal disease acut e CKD (chronic kidney disease) stage 5, GFR less than 15 ml/min acute Diabetes mellitus with diabetic neuropathy acute Diabetic foot ulcer with osteomyelitis acute Hypertensive kidney disease with chronic kidney disease stage V acute Osteomyelitis of right foot acute Surgical wound present acute Type 2 diabetes mellitus wit h diabetic chronic kidney disease acute Ulcer of right foot with necrosis of bone acute MARTHA (acute kidney injury) ac adela Anemia acute CKD (chronic kidney disease) stage 5, GFR less than 15 ml/min acute Diabetes mellitus with foot ulcer acute Fever acute History of fever acute Hypertensive kidney disease with chronic kidney disease stage V acute Metabolic acidosis acute Osteomyelitis acute Osteomyelitis of right foot acute Receiving intravenous antibiotic treatment at home acute Recent surgical procedure on lower extremity acute Subjective fever acute Type 2 diabetes mellitus wit h diabetic chronic kidney disease acute Ulcer of right foot acute [facility] Work Phone: History and physical note Author Salvador Alonso [facility] May 20, 2022 2:43pm Note Date/Time May 20, 2022 1:50 pm [facility] [address] [place] [address] Hospitalist H&P Signed Patient: Gopal Yates Jr MR#: [id number] : 1965 Acct:[id number] Age/Sex: 56 / M Adm Date: 3 Loc: Room: [address] [place] [address] Type: ADM IN Attending Dr: Salvador Alonso MD Copies to: MD Douglas Boles MD~ HPI DATE OF EXAMINATION: 05/20/22 CHIEF COMPLAINT: osteomyelits HISTORY OF PRESENT ILLNESS: Mr. 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 Patientrecently was discharged from the hospital on 08/11, he underwent partial right fifth ray amputation on the right foot and was discharged home on oral antibiotics. Patient went to see his foot doctor yesterday when he was found to have worsening ulcer with possible infection. Imaging revealed possible osteomyelitis. Patient was initially scheduled to have surgery today however could not be done because of busy schedule in the OT. Decision made to admit the patient for IV antibiotics and possible surgery tomorrow. Patient states that he has been taking his antibiotics since discharge regularly. noted that patient had some fever yesterday but subsided after receiving Tylenol. He denies any nausea, vomiting, abdominal pain, urinary complaints, respiratory complaints. Review of Systems Review of Systems All other systems reviewed & are negative unless noted below or in HPI PMFSH Vaccinated for COVID-19?: Yes Medical History Anemia CHF (congestive heart failure) CKD (chronic kidney disease) Diabetes type 2, controlled Hypertension Wound of foot Surgical History History of heart artery stent 2019 Hx of cardiac cath 2019 Family History Father Heart attack Heart failure Mother Breast cancer Social History Smoking Status: Never smoker Substance Use Type: None Meds Medications and Allergies Allergies Sulfa (Sulfonamide Antibiotics) Allergy (Verified 05/20/22 10:10) Hives Home Medications aspirin 81 mg tablet,delayed release 81 mg PO DAILY 05/05/22 [History Confirmed 05/20/22] bumetanide 2 mg tablet 2 mg PO DAILY 05/05/22 [History Confirmed 05/20/22] carvedilol 25 mg tablet 37.5 mg PO BID 05/05/22 [History Confirmed 05/20/22] cholecalciferol (vitamin D3) 50 mcg (2,000 unit) capsule (Vitamin D3) 50 mcg PO DAILY 05/05/22 [History Confirmed 05/20/22] ezetimibe 10 mg tablet 10 mg PO DAILY 05/05/22 [History Confirmed 05/20/22] hydralazine 50 mg tablet 50 mg PO TID 05/05/22 [History Confirmed 05/20/22] insulin aspart U-100 100 unit/mL (3 mL) subcutaneous pen See Rx Instructions .Route .COMPLEX 05/05/22 [History Confirmed 05/20/22] insulin glargine 100 unit/mL subcutaneous solution (Lantus U-100 Insulin) 16 unit subcut QAM 05/05/22 [History Confirmed 05/20/22] isosorbide dinitrate 10 mg tablet 10 mg PO TID 05/05/22 [History Confirmed 05/20/22] levothyroxine 100 mcg tablet 100 mcg PO DAILY 05/05/22 [History Confirmed 05/20/22] multivitamin 1 tab PO DAILY 05/05/22 [History Confirmed 05/20/22] nifedipine 30 mg tablet,extended release 24 hr 30 mg PO BID 05/05/22 [History Confirmed 05/20/22] omeprazole 40 mg capsule,delayed release 40 mg PO BID 05/05/22 [History Confirmed 05/20/22] amoxicillin 500 mg-potassium clavulanate 125 mg tablet (Augmentin) 1 tab PO BID 14 days #28 tabs 05/08/22 [Rx Confirmed 05/20/22] sodium bicarbonate 650 mg tablet 1,300 mg PO BID 30 days #120 tabs 05/08/22 [Rx Confirmed 05/20/22] cyproheptadine 4 mg tablet 4 mg PO DAILY 05/20/22 [History Confirmed 05/20/22] liothyronine 5 mcg tablet 10 mcg PO DAILY 05/20/22 [History Confirmed 05/20/22] Exam Physical Exam Vital Signs: Temp Pulse Resp BP Pulse Ox O2 Del Method 98.3 F 71 18 121/67 96 Room Air 05/20/22 13:17 05/20/22 13:17 05/20/22 13:17 05/20/22 13:17 05/20/22 13:17 05/20/22 13:17 Narrative: General: Awake, alert, oriented x3 not in acute distress HEENT: Normocephalic, atraumatic, PERRLA, normal mucosa Cardiovascular: Regular rate and rhythm , S1-S2 heard, no murmurs or gallops Lungs: No wheezing or rhonchi heard Gastrointestinal: Soft, nontender, bowel sounds heard Extremities: Right foot dressing dry and intact Neurological: no sensory or motor deficit Skin: Dry and warm, no rashes or lesions Psych: Normal mood and affect Results Lab Results Labs: Laboratory Last Values Corrected WBC 9.2 X10E3/uL (4.1-10.5) 05/20/22 11:35 Uncorrected WBC Count 9.2 x10E3/uL (4.1-10.5) 05/20/22 11:35 RBC 3.10 X10E6/uL (3.90-5.60) L 05/20/22 11:35 Hgb 8.4 g/dL (13.0-17.0) L 05/20/22 11:35 Hct 25.4 % (38.8-50.0) L 05/20/22 11:35 MCV 81.9 fl (83.5-101) L 05/20/22 11:35 MCH 27.2 pg (27.5-35.2) L 05/20/22 11:35 MCHC 33.2 g/dL (32.5-35.6) 05/20/22 11:35 RDW 14.9 % (12.0-14.8) H 05/20/22 11:35 Plt Count 165 x10E3/uL (150-450) 05/20/22 11:35 MPV 9.3 fl (6.6-10.1) 05/20/22 11:35 Neut % (Auto) 87.0 % (.) 05/20/22 11:35 Lymph % (Auto) 3.3 % (.) 05/20/22 11:35 Edmunds % (Auto) 8.7 % (.) 05/20/22 11:35 Eos % (Auto) 0.2 % (.) 05/20/22 11:35 Baso % (Auto) 0.8 % (.) 05/20/22 11:35 Nucleat RBC Rel Count 0.1 /100 WBC (0-0.5) 05/20/22 11:35 Neut # (Auto) 8.0 x10E3/uL (1.8-7.7) H 05/20/22 11:35 Lymph # (Auto) 0.3 x10E3/uL (1.00-4.8) L 05/20/22 11:35 Edmunds # (Auto) 0.8 x10E3/uL (0.0-0.8) 05/20/22 11:35 Eos # (Auto) 0.0 x10E3/uL (0.0-0.45) 05/20/22 11:35 Baso # (Auto) 0.1 x10E3/uL (0.0-0.2) 05/20/22 11:35 Monocyte Dist Width 21.96 % (0.00-20.00) H 05/20/22 11:35 PT 15.3 Seconds (9.0-12.9) H 05/20/22 11:35 INR 1.3 05/20/22 11:35 APTT 30.7 Seconds (25.1-36.5) 05/20/22 11:35 PHA Creatinine Clear 18.19 05/20/22 11:35 Sodium 132 mmol/L (136-146) L 05/20/22 11:35 Potassium 4.8 mmol/L (3.5-5.1) 05/20/22 11:35 Chloride 101 mmol/L (95-114) 05/20/22 11:35 Carbon Dioxide 19.9 mmol/L (22.0-30.0) L 05/20/22 11:35 Anion Gap 15.9 mEq/L (6.0-15.0) H 05/20/22 11:35 BUN 77 mg/dL (9-23) H 05/20/22 11:35 Creatinine 5.50 mg/dL (0.64-1.27) H 05/20/22 11:35 Est GFR ( Amer) 13 mL/Min 05/20/22 11:35 Est GFR (Non-Af Amer) 11 mL/Min 05/20/22 11:35 Glucose 110 mg/dL (70-100) H 05/20/22 11:35 Lactic Acid 1.8 mmol/L (0.5-2.2) 05/20/22 11:00 Calcium 7.7 mg/dL (8.2-10.2) L 05/20/22 11:35 Total Bilirubin 1.1 mg/dL (0.3-1.2) 05/20/22 11:35 AST 95 U/L (10-42) H 05/20/22 11:35 ALT 64 U/L (10-60) H 05/20/22 11:35 Alkaline Phosphatase 169 U/L (32-92) H 05/20/22 11:35 Total Protein 6.5 gm/dL (6.1-7.9) 05/20/22 11:35 Albumin 1.8 gm/dL (3.2-5.5) L 05/20/22 11:35 Globulin 4.7 gm/dL 05/20/22 11:35 Albumin/Globulin Ratio 0.4 05/20/22 11:35 A&P - Hospitalist Assessment/Plan (1) Osteomyelitis of right foot: (2) Ulcer of right foot with necrosis of bone: (3) Diabetic foot ulcer with osteomyelitis: (4) Hypertensive kidney disease with chronic kidney disease stage V: Plan Patient will be admitted to surgical floor for further evaluation management Patient is hemodynamically stable and is afebrile, saturating 96% on room air X-ray right foot showed osteopenia along the lateral margin of the distal fourthmetatarsal suspicious for osteomyelitis, subcutaneous emphysema in the lateral soft tissues of the right foot suspicious for cellulitis with underlying abscess Labs showed no leukocytosis, hemoglobin 8.4, BUN/creatinine: 37/5.5 Patient scheduled to have PD catheter placement next week. We will consult nephro Consult infectious disease, podiatry Blood cultures, wound culture sent in the ED We will start IV vancomycin Continue home meds DVT prophylaxis CODE STATUS full code Documented By: Salvador Alonso MD 05/20/22 1350 Signed By: <Electronically signed by Salvador Alonso MD> 05/20/[address] 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 Surgical History HEART STENT 01/2020 Surgical History RIGHT SIDED HEART CATH 05/20/2021 Hospitalization History HEART STENT, HEART ATTAC K 01/2020 Hospitalization History HYPERTENSION WITH [facility] 08/2019 [facility] Other [facility] general Narrative - Reported* Type Description Date Medical History CHRONIC KIDNEY DISEASE STAGE 2 Medical History DIABETES MELLITUS TYPE 2 Medical History PALPITATIONS Medical History HYPOTHYROIDISM Medical History EDEMA Medical History ANXIETY AND PANIC ATTACKS Medical History HYPERTENSION Medical History HYPERLIPIDEMIA Medical History CHRONIC FATIGUE SYNDROME Medical History DYSPNEA Medical History ACUTE COMBINED SYSTOLIC AND SMITH TOLIC HEART FAILURE Medical History ANEMIA Surgical History HEART STENT 01/2020 Surgical History RIGHT SIDED HEART CATH 05/20/2021 Hospitalization History HEART STENT, HEART ATTAC K 01/2020 Hospitalization History HYPERTENSION WITH [facility] 08/2019 [facility] Other Hospital Discharge instructions Additional Instructions Please leave dressing intact until you follow up with Dr. Griggs/Podiatry. [facility] Work Phone: Hospital Discharge instructions Additional Instructions Obtain weekly CRP levels at infusion center as ordered. Send results to Dr. Thomas Maintain and perform routine care to left upper arm PICC line. *Change dressing every 7 days and PRN-- sterile antimicrobial dressing applied per protocol. Change statlock with every dressing change. *Administer IV antibiotics as ordered Dietitian recommendations: *Boost glucose control, 1 container, twice daily with meals Change wound vac every other day and PRN to right foot: *Continuous KCI @ 150 mmHg-- MWF Monitor glucose levels as before.[facility] Work Phone: Progress note Author Gopal Hardy [facility] May 08, 2022 6:31pm Note Date/Time May 08, 2022 6:26pm [facility] [address] [place] [address] Podiatry Progress Note Signed Patient: Gopal Yates Jr MR#: [id number] : 1965 Acct:[id number] Age/Sex: 56 / M Adm Date: 3 Loc: 4N Room: [address] [place] [address] Type: DIS IN Attending Dr: Cornelio Simon MD Copies to: ~ Subjective Subjective Date of Service: Date of Service: 05/08/2022 Time of Service: 18:21 Narrative: Mr. Yates is a 56 year old male who has had a history of a callus along the outside of the right foot. He states he was in the shower 1 day when this opened and he noticed a significant amount of bleeding and a large wound. Patient was seen by Dr. Park under at the wound care center in [place] and x-rays were noted to have osteomyelitis. Due to his kidney function he was sent to [facility] as there is a concern for need for inpatient dialysis which is not available at [place]. Patient states that he has had some episodes of fever and chills denies any nausea or vomiting. He does have some increased discomfort to the right foot but patient has known diabetic neuropathy which limits his overall feeling. He has not had a history of wounds or sores to his feet in the past. Patient denies any history of problems with his circulation. He states he did have a test performed earlier this afternoon to check the bloodflow in his legs. No other complaints. Patient is status post partial fifth ray amputation right by my partner Dr. Griggs and this is postop day 1. He deniesany discomfort or pain. Exam Physical Exam Vital Signs: Temp Pulse Resp BP Pulse Ox O2 Del Method 99.2 F H 60 16 138/64 95 Room Air 05/08/22 15:41 05/08/22 15:41 05/08/22 15:41 05/08/22 15:41 05/08/22 15:41 05/08/22 15:41 Narrative: General: Patient is seen at bedside and is awake and aware and in no acute distress. Vascular: DP and PT pulses are nonpalpable to the right lower extremity but palpable on the left. There is +2-3 pitting edema around the dorsal foot and medial ankle. PVR was reviewed that did demonstrate good waveforms to the ankleand ALICIA on the right of 0.93. Neurology: Patient has known diabetic peripheral neuropathy with autonomic, sensory and motor components. Dermatology: Incision is well coapted and sutures are intact. Retention suturesremain in place and skin flap created by the fifth right toe remains viable and pink at this point. There is minimal bloody drainage noted on the bandage overlying the incision. No purulent drainage noted. Minimal edema noted. No cellulitis and again the patient denies any pain or discomfort. WBC is 9.8 Orthopedic: Muscle strength is 4 out of 5 for all pedal groups tested. Mild pain with palpation around the ulceration site to the right fifth MPJ. X-rays: Demonstrate evidence of cortical erosion along the lateral head of the fifth MPJ MRI: Demonstrates evidence of acute osteomyelitis to the base of the proximal phalanx of the fifth digit and fifth metatarsal head slightly to the more distalaspect of the fifth metatarsal Assessment/Plan (1) Ulcer of right foot with necrosis of bone: Plan: POD #1 from partial fifth ray amputation right. Patient is doing very well and his incision remains well coapted with wound edges pink and viable. Preliminarycultures are negative for pathogens thus far. The patient will be discharged onAugmentin 500 mg twice daily pending the outcome of those final cultures. The patient is advised to follow-up with my partner Dr. Griggs in a week or so and he will contact her office to set this up. The patient states that he will likely return to Dr. Iverson for at the [facility] for the majority of his postop care. Dr. Griggs contacted Dr. Iverson to ensure that this is okay for the patient to follow- up postoperatively. Patient is advised to limit weightbearing activity is much as possible and wear his postop shoe for all weightbearing activity. He is to keep his bandage clean and dry. Recommend daily or every other day dressing changes initially and the patient states he will set this up with the [facility]. Patient is advised to call if he has any problems or questions prior to his follow-up appointments. Code(s): L97.514 - Non-pressure chronic ulcer of other part of right foot with necrosis of bone (2) Osteomyelitis of right foot: Code(s): M86.9 - Osteomyelitis, unspecified (3) Type 2 diabetes mellitus with diabetic chronic kidney disease: Code(s): E11.22 - Type 2 diabetes mellitus with diabetic chronic kidney disease Documented By: Gopal Hardy DPM, PHILLIP 1820 Signed By: <Electronically signed by HARRY Hardy> 05/08/221830 [facility] Work Phone: Progress note Author Salvador Alonso [facility] May 21, 2022 11:00pm Note Date/Time May 21, 2022 11:0 0pm [facility] [address] [place] [address] Hospitalist Progress Note Signed Patient: Gopal Yates Jr MR#: [id number] : 1965 Acct:[id number] Age/Sex: 56 / M Adm Date: 3 Loc: Room: [address] [place] [address] Type: ADM IN Attending Dr: Salvador Alonso MD Copies to: ~ Date of Service: 05/21/2022 Subjective Subjective Narrative: Patient seen and examined. He is scheduled to have surgery today in the evening. Complaining of pain in his right foot but is well-tolerated with pain medication. He is hemodynamically stable and is afebrile Exam Physical Exam Vital Signs: Temp Pulse Resp BP Pulse Ox O2 Del Method 97.9 F 63 16 140/65 96 Room Air 05/21/22 16:40 05/21/22 16:40 05/21/22 16:40 05/21/22 16:40 05/21/22 16:40 05/21/22 12:00 Narrative: General: Awake, alert, oriented x3 not in acute distress HEENT: Normocephalic, atraumatic, PERRLA, normal mucosa Cardiovascular: Regular rate and rhythm , S1-S2 heard, no murmurs or gallops Lungs: No wheezing or rhonchi heard Gastrointestinal: Soft, nontender, bowel sounds heard Extremities: Right foot dressing dry and intact Neurological: no sensory or motor deficit Skin: Dry and warm, no rashes or lesions Psych: Normal mood and affect Objective Lab Results 05/21/22 06:31 05/21/22 06:31 Microbiology Results Microbiology 05/20/22 11:28 Toe,Right Fifth - Abscess Superficial Wound Culture - Preliminary Light Normal Skin Efren 1 Day 05/20/22 11:12 Blood - Left Antecubital Blood Culture - Preliminary No Growth 1 Day 05/20/22 11:00 Blood - Left Antecubital Blood Culture - Preliminary No Growth 1 Day Meds Allergies and Active Meds Allergies Sulfa (Sulfonamide Antibiotics) Allergy (Verified 05/20/22 10:10) Hives Active Meds: Active Medications Generic Name Dose Route Start Last Admin Trade Name Budq PRN Reason Stop Dose Admin Acetaminophen 650 mg 05/20/22 13:40 Acetaminophen 325 Mg Tablet PO 05/20/23 13:39 Q6H PRN Pain Scale 1 - 3 or fever Bumetanide 2 mg 05/21/22 09:00 05/21/22 08:00 Bumetanide 2 Mg Tablet PO 05/21/23 08:59 Not Given DAILY [facility] Carvedilol 37.5 mg 05/20/22 17:00 05/21/22 19:39 Carvedilol 12.5 Mg Tablet PO 05/20/23 16:59 Not Given BID.WITH.MEALS REDD Cyproheptadine HCl 4 mg 05/21/22 09:00 05/21/22 08:00 Cyproheptadine 4 Mg Tablet PO 05/21/23 08:59 Not Given DAILY [facility] Ezetimibe 10 mg 05/21/22 09:00 05/21/22 08:00 Ezetimibe 10 Mg Tablet PO 05/21/23 08:59 Not Given DAILY [facility] Hydralazine HCl 50 mg 05/20/22 14:00 05/21/22 22:25 Hydralazine 50 Mg Tablet PO 05/20/23 13:59 50 mg TID REDD Administration Sodium Chloride 500 mls @ 20 mls/hr 05/21/22 08:33 0.9 % Sodium Chloride IV 05/22/22 08:32 PROTOCOL PRN BLOOD TRANSFUSION Piperacillin Sod/Tazobactam Sod 2.25 gm in 100 mls @ 200 mls/hr 05/21/22 11:30 05/21/22 22:30 Zosyn 2.25gm IV 200 mls/hr Q6H REDD Administration Lactated Ringer's 1,000 mls @ 20 mls/hr 05/21/22 13:55 05/21/22 15:44 Lactated Ringers IV 05/22/22 13:54 20 mls/hr .Q24H ONE Administration Insulin Glargine 16 units 05/21/22 09:00 05/21/22 08:00 Insulin Glargine 300 Units/3 Ml Insuln.Pen SUBCUT 05/21/23 08:59 Not Given QAM [facility] Isosorbide Dinitrate 10 mg 05/20/22 14:00 05/21/22 22:25 Isosorbide Dinitrate 10 Mg Tablet PO 05/20/23 13:59 10 mg TID REDD Administration Levothyroxine Sodium 100 mcg 05/21/22 06:30 05/21/22 06:20 Levothyroxine 100 Mcg Tablet PO 05/21/23 06:29 100 mcg DAILY@0630 REDD Administration Liothyronine Sodium 10 mcg 05/21/22 09:00 05/21/22 08:00 Liothyronine 5 Mcg Tablet PO 05/21/23 08:59 Not Given DAILY [facility] Multivitamins 1 tab 05/21/22 09:00 05/21/22 08:00 Multivitamin 1 Tab Tablet PO 05/21/23 08:59 Not Given DAILY [facility] Nifedipine 30 mg 05/20/22 21:00 05/21/22 22:25 Nifedipine Er.24hr 30 Mg Tab.Er.24 PO 05/20/23 20:59 30 mg BID REDD Administration Ondansetron HCl 4 mg 05/20/22 13:40 Ondansetron 4 Mg/2 Ml Vial IV-PUSH 05/20/23 13:39 Q8H PRN Nausea And Vomiting Oxycodone HCl 5 mg 05/20/22 13:40 Oxycodone Ir 5 Mg Tablet PO Q6H PRN Pain Scale 4 - 7 Pantoprazole Sodium 40 mg 05/20/22 21:00 05/21/22 22:25 Pantoprazole 40 Mg Tablet.Dr PO 05/20/23 20:59 40 mg BID REDD Administration Potassium Chloride 40 meq 05/20/22 13:40 Potassium Chloride Er 20 Meq Tab.Er.Prt PO 05/20/23 13:39 DAILY PRN Hypokalemia Sodium Bicarbonate 1,300 mg 05/20/22 21:00 05/21/22 22:25 Sodium Bicarbonate 650 Mg Tablet PO 05/20/23 20:59 1,300 mg BID REDD Administration Sodium Chloride 0 ml 05/20/22 10:10 05/21/22 22:25 Sodium Chloride 0.9 % 10 Ml Syringe IV-PUSH 05/20/23 10:09 10 ml PRN PRN Administration Flush Vancomycin HCl 1 each 05/20/22 13:45 Vancomycin - Pharmacy Dosing 1 Each Miscell IV ONCE PRN ZZ.Pharmacy Consult Protocol Vitamin D 50 mcg 05/21/22 09:00 05/21/22 08:00 Cholecalciferol 25 Mcg (1,000 Units) Tablet PO 05/21/23 08:59 Not Given DAILY [facility] A&P - Hospitalist Assessment/Plan (1) Osteomyelitis of right foot: (2) Ulcer of right foot with necrosis of bone: (3) Diabetic foot ulcer with osteomyelitis: (4) Hypertensive kidney disease with chronic kidney disease stage V: Plan Patient scheduled for surgery today Patient is hemodynamically stable and is afebrile, saturating 96% on room air X-ray right foot showed osteopenia along the lateral margin of the distal fourthmetatarsal suspicious for osteomyelitis, subcutaneous emphysema in the lateral soft tissues of the right foot suspicious for cellulitis with underlying abscess Labs showed no leukocytosis, hemoglobin 7.6, will transfuse 1 unit of PRBC. Kidney functions at baseline, nephrology following Infectious disease on board. Cultures pending. Added Zosyn as recent cultures were positive for Bacteroides. Continue vancomycin Continue home meds DVT prophylaxis CODE STATUS full code Documented By: Salavdor Alonso MD 05/21/222257 Signed By: <Electronically signed by Salvador Alonso MD> 05/21/22 838 [facility] Work Phone: Progress note Author Eddy Griggs [facility] May 22, 2022 8:23am Note Date/Time May 22, 2022 8:18 am [facility] [address] [place] [address] Podiatry Progress Note Signed Patient: Gopal Yates Jr MR#: [id number] : 1965 Acct:[id number] Age/Sex: 56 / M Adm Date: 3 Loc: Room: [address] [place] [address] Type: ADM IN Attending Dr: Salvador Alonso MD Copies to: ~ Subjective Subjective Date of Service: Date of Service: 05/22/2022 Time of Service: 08:15 Narrative: Mr. Yates is a 56 year old male being seen at this time for POD #1 right foot 4th toe amputation, debridement and pulse lavage as well as I&D abscess right foot. He states that he has a mild stinging pain to the foot, but otherwise no pain. Denies any N/V/D/F/C. Patient seems understand the need to completely offload right foot he understands need for elevation of foot. Patient understands he is a very complicated patient with multiple comorbidities that are brought him to this level of pathology and surgery and will also obviously impair healing. He is very pleasant individual with diabetes mellitus, neuropathy and advanced renal disease as well unfortunately. Osteomyelitis is led to the amputation of partial right foot as documented previously. Exam Physical Exam Vital Signs: Temp Pulse Resp BP Pulse Ox O2 Del Method 98.0 F 68 16 148/73 H 95 Room Air 05/22/22 04:00 05/22/22 04:00 05/22/22 04:00 05/22/22 04:00 05/22/22 04:00 05/22/22 04:00 Narrative: Patient is awake alert and orient x3 resting comfortably in bed. Nurses presentthrough part of the examination. Dressing is intact right foot without any drainage coming through. The dressing was removed: Vascular examination shows that pulses appear to be intact and capillary refill less than 2 seconds skin is warm. Neurological examination: Neuropathy right lower extremity including motor, autonomic, sensory types: Nonpainful on examination removal of packing/dressings. Muscle skeletal examination: Right lower extremity weakness noted to toes however patient is able to dorsiflex/plantarflex right foot and ankle. Dermatology examination: Incision site to the lateral right foot is well copated. There is an open defect to the lateral foot proximal 5th metatarsal region with deep tissue and remiaing bone to the right 5th metatarsal exposed. There is no active pustular drainage to the right foot with milking. No malodornoted. Area of depth along the lateral foot toward the 3rd MPJ appears healthy with no active drainage. Cellulitis to the right foot does appear to be improving. Orthopedic: amputation of the right 5th ray and 4th toe Radiology examination: X-ray 05-20-2022 reveals amputation obviously of the fifth toe and right fifth metatarsal partial base is intact. Appears to be possible osteomyelitis right fourth metatarsal region and fourth toe to a lesser degree. I have reviewed the film I agree with the reading. MRI read final result is still pending. Assessment/Plan (1) Osteomyelitis of right foot: Plan: Patient is s/p right foot 4th digit amputation and revision of 5th metatarsal amputation with I&D to the right foot. He is doing well with pain. Prior cultures from hospitalization 2 weeks ago did grow an anarobe and final culture pending from the right foot surgery culture. I do feel that the patient would benefit from a course of IV antibiotics due to the concern for osteomyelitis to the right 3rd and 4th metatarsals based on MRI but patient is a difficult ase due to his renal function. ID is on board and we will wait their recommendations in regards to antibiotics. Patient will need wound VAC ordered/applied to the right foot. It has been very difficult getting HHC secured for the patient due to his insurance. He again states that he would like to go to the [facility] in order to have dressing changes, but Ipersonally called after his last hospitalization and due to their short staffingthey were not offering this service at this time. I advised that if we are not able to find a HHC agency, patient may need to come to the infusion center for dresssing changes, but that does affect his healing due to the fact that he is going to be traveling with his foot down and this can affect his healing. We will wait on final OR cultures and try to arrange HHC prior to d/c. Podiatry will continue to follow. Code(s): M86.9 - Osteomyelitis, unspecified (2) Ulcer of right foot with necrosis of bone: Code(s): L97.514 - Non-pressure chronic ulcer of other part of right foot with necrosis of bone (3) Diabetic foot ulcer with osteomyelitis: Code(s): E11.621 - Type 2 diabetes mellitus with foot ulcer; E11.69 - Type 2 diabetes mellitus with other specified complication; L97.509 - Non-pressure chronic ulcerof other part of unspecified foot with unspecified severity; M86.9 - Osteomyelitis, unspecified (4) Type 2 diabetes mellitus with diabetic chronic kidney disease: Code(s): E11.22 - Type 2 diabetes mellitus with diabetic chronic kidney disease (5) Hypertensive kidney disease with chronic kidney disease stage V: Code(s): I12.0 - Hypertensive chronic kidney disease with stage 5 chronic kidney disease or end stage renal disease; N18.5 - Chronic kidney disease, stage 5 (6) Anemia of renal disease: Code(s): N18.9 - Chronic kidney disease, unspecified; D63.1 - Anemia in chronic kidney disease (7) CKD (chronic kidney disease) stage 5, GFR less than 15 ml/min: Code(s): N18.5 - Chronic kidney disease, stage 5 (8) Surgical wound present: Code(s): T14.8XXA - Other injury of unspecified body region, initial encounter (9) Diabetes mellitus with diabetic neuropathy: Code(s): E11.40 - Type 2 diabetes mellitus with diabetic neuropathy, unspecified Documented By: Eddy Griggs DPM 05/22/22 08 15 Signed By: <Electronically signed by HARRY Griggs> 05/22/22 0823 [facility] Work Phone: Progress note Author Ashutosh Thomas [facility] May 22, 2022 12:21pm Note Date/Time May 22, 2022 12:2 1pm [facility] [address] [place] [address] Infect. Disease Progress Note Signed Patient: Gopal Yates Jr MR#: [id number] : 1965 Acct:[id number] Age/Sex: 56 / M Adm Date: 3 Loc: 3T Room: [address] [place] [address] Type: ADM IN Attending Dr: Salvador Alonso MD Copies to: ~ Date of Service: 05/22/2022 Subjective Interval history: Tolerated surgery yesterday and is doing well this morning. Denies any new complaints. Exam Physical Exam Vital Signs: Temp Pulse Resp BP Pulse Ox O2 Del Method 98.0 F 68 16 148/73 H 95 Room Air 05/22/22 11:33 05/22/22 11:33 05/22/22 11:33 05/22/22 11:33 05/22/22 11:33 05/22/22 11:33 Const General: cooperative, healthy appearing, comfortable and no acute distress HEENT Head: normal to inspection, normocephalic and atraumatic Ears: hearing grossly normal bilaterally Eyes Visual Holden: normal visual holden by confrontation Conjunctivae: conjunctivae normal Sclera: sclerae normal EOM: EOM intact bilaterally Neck Neck: normal visual inspection, full ROM and no lymphadenopathy Chest Chest palpation & inspection: normal inspection of the chest Resp Effort & Inspection: normal respiratory effort and able to speak in complete sentences Auscultation: clear to auscultation bilaterally Cardio Rate: regular rate Rhythm: regular rhythm Heart Sounds: S1 normal and S2 normal GI Inspection: normal to inspection, no edema and non-distended Palpation: soft Skin General: no rashes or lesions noted Neuro General: patient alert, patient awake, patient oriented x3 and moves all extremities Extrem General: no clubbing, cyanosis or edema and no calf tenderness Other: Right foot now with surgical bandage in place. Psych Appearance: grossly normal Mental Status: mental status grossly normal Objective Labs CBC/BMP: CBC, BMP 05/22/22 05/22/22 05:56 05:56 Corrected WBC 8.7 Uncorrected WBC Count 8.7 RBC 3.17 L Hgb 8.6 L Hct 25.9 L Plt Count 174 Sodium 131 L Potassium 4.3 Chloride 103 Carbon Dioxide 19.9 L Anion Gap 12.4 BUN 69 H Creatinine 4.75 H Calcium 7.5 L Labs: 05/22/22 05:56 BUN 69 H Creatinine 4.75 H Microbiology Microbiology: Microbiology - Results from entire visit 05/20/22 11:28 Toe,Right Fifth - Abscess Superficial Wound Culture - Final Light Normal Skin Efren 2 Days 05/20/22 11:12 Blood - Left Antecubital Blood Culture - Preliminary No Growth 2 Days 05/20/22 11:00 Blood - Left Antecubital Blood Culture - Preliminary No Growth 2 Days Allergies and Medications Allergies and Active Meds Allergies Sulfa (Sulfonamide Antibiotics) Allergy (Verified 05/20/22 10:10) Hives Active Medications Acetaminophen (Acetaminophen 325 Mg Tablet) 650 mg PO Q6H PRN PRN Reason: Pain Scale 1 - 3 or fever Stop: 05/20/23 13:39 Last Admin: 05/22/22 06:05 Dose: 650 mg Bumetanide (Bumetanide 2 Mg Tablet) 2 mg PO DAILY [facility] Stop: 05/21/23 08:59 Last Admin: 05/22/22 08:34 Dose: 2 mg Carvedilol (Carvedilol 12.5 Mg Tablet) 37.5 mg PO BID.WITH.MEALS [facility] Stop: 05/20/23 16:59 Last Admin: 05/22/22 08:34 Dose: 37.5 mg Cyproheptadine HCl (Cyproheptadine 4 Mg Tablet) 4 mg PO DAILY [facility] Stop: 05/21/23 08:59 Last Admin: 05/22/22 08:33 Dose: 4 mg Ezetimibe (Ezetimibe 10 Mg Tablet) 10 mg PO DAILY [facility] Stop: 05/21/23 08:59 Last Admin: 05/22/22 08:34 Dose: 10 mg Hydralazine HCl (Hydralazine 50 Mg Tablet) 50 mg PO TID [facility] Stop: 05/20/23 13:59 Last Admin: 05/22/22 08:34 Dose: 50 mg Piperacillin Sod/Tazobactam Sod (Zosyn 2.25gm) 2.25 gm in 100 mls @ 200 mls/hr IV Q6H [facility] Last Admin: 05/22/22 11:31 Dose: 200 mls/hr Lactated Ringer's (Lactated Ringers) 1,000 mls @ 20 mls/hr IV .Q24H ONE Stop: 05/22/22 13:54 Last Admin: 05/21/22 15:44 Dose: 20 mls/hr Vancomycin HCl 1.25 gm/ (Dextrose) 275 mls @ 183.333 mls/hr IV ONCE ONE Stop: 05/22/22 12:59 Insulin Glargine (Insulin Glargine 300 Units/3 Ml Insuln.Pen) 16 units SUBCUT QAM [facility] Stop: 05/21/23 08:59 Last Admin: 05/22/22 08:34 Dose: 16 units Isosorbide Dinitrate (Isosorbide Dinitrate 10 Mg Tablet) 10 mg PO TID [facility] Stop: 05/20/23 13:59 Last Admin: 05/22/22 08:34 Dose: 10 mg Levothyroxine Sodium (Levothyroxine 100 Mcg Tablet) 100 mcg PO DAILY@0630 [facility] Stop: 05/21/23 06:29 Last Admin: 05/22/22 06:05 Dose: 100 mcg Liothyronine Sodium (Liothyronine 5 Mcg Tablet) 10 mcg PO DAILY [facility] Stop: 05/21/23 08:59 Last Admin: 05/22/22 08:33 Dose: 10 mcg Multivitamins (Multivitamin 1 Tab Tablet) 1 tab PO DAILY [facility] Stop: 05/21/23 08:59 Last Admin: 05/22/22 08:33 Dose: 1 tab Nifedipine (Nifedipine Er.24hr 30 Mg Tab.Er.24) 30 mg PO BID [facility] Stop: 05/20/23 20:59 Last Admin: 05/22/22 08:34 Dose: 30 mg Ondansetron HCl (Ondansetron 4 Mg/2 Ml Vial) 4 mg IV-PUSH Q8H PRN PRN Reason: Nausea And Vomiting Stop: 05/20/23 13:39 Oxycodone HCl (Oxycodone Ir 5 Mg Tablet) 5 mg PO Q6H PRN PRN Reason: Pain Scale 4 - 7 Pantoprazole Sodium (Pantoprazole 40 Mg Tablet.Dr) 40 mg PO BID [facility] Stop: 05/20/23 20:59 Last Admin: 05/22/22 08:34 Dose: 40 mg Potassium Chloride (Potassium Chloride Er 20 Meq Tab.Er.Prt) 40 meq PO DAILY PRN PRN Reason: Hypokalemia Stop: 05/20/23 13:39 Sodium Bicarbonate (Sodium Bicarbonate 650 Mg Tablet) 1,300 mg PO BID [facility] Stop: 05/20/23 20:59 Last Admin: 05/22/22 08:33 Dose: 1,300 mg Sodium Chloride (Sodium Chloride 0.9 % 10 Ml Syringe) 0 ml IV-PUSH PRN PRN PRN Reason: Flush Stop: 05/20/23 10:09 Last Admin: 05/22/22 06:50 Dose: 10 ml Vancomycin HCl (Vancomycin - Pharmacy Dosing 1 Each Miscell) 1 each IV ONCE PRN; Protocol PRN Reason: ALBERTA.Pharmacy Consult Vitamin D (Cholecalciferol 25 Mcg (1,000 Units) Tablet) 50 mcg PO DAILY [facility] Stop: 05/21/23 08:59 Last Admin: 05/22/22 08:33 Dose: 50 mcg A&P - Infectious Disease Assessment/Plan (1) Osteomyelitis of right foot: Code(s): M86.9 - Osteomyelitis, unspecified Status: Acute (2) Diabetic foot ulcer with osteomyelitis: Code(s): E11.621 - Type 2 diabetes mellitus with foot ulcer; E11.69 - Type 2 diabetes mellitus with other specified complication; L97.509 - Non-pressure chronic ulcerof other part of unspecified foot with unspecified severity; M86.9 - Osteomyelitis, unspecified Status: Acute (3) Type 2 diabetes mellitus with diabetic chronic kidney disease: Code(s): E11.22 - Type 2 diabetes mellitus with diabetic chronic kidney disease Status: Acute (4) CKD (chronic kidney disease) stage 5, GFR less than 15 ml/min: Code(s): N18.5 - Chronic kidney disease, stage 5 Status: Acute Plan Status post surgery on his foot but per my discussion with Dr. Cade yesterday there is concerned that residual osteomyelitis may still be present and that therefore IV antibiotics will be planned for outpatient. PICC line will be ordered. Previous cultures from bone biopsy had only Bacteroides fragilis. Newcultures are pending. Currently on vancomycin and Zosyn. If no new pathogens identified with plan ertapenem for antibiotic choice. Patient does not necessarily have to wait in the hospital for these cultures to result as he is asking to go however PICC line was just ordered and antibiotics have to be arranged for home. Documented By: Ashutosh Thomas MD 05/22/228 Signed By: <Electronically signed by MD Ashutosh Thomas> 05/22/[address] [facility] Work Phone: Progress note Author Cristobal Butts [facility] May 22, 2022 1:15pm Note Date/Time May 22, 2022 1:16 pm [facility] [address] [place] [address] Nephrology Progress Note Signed Patient: Gopal Yates Jr MR#: [id number] : 1965 Acct:[id number] Age/Sex: 56 / M Adm Date: 3 Loc: 3T Room: [address] [place] [address] Type: ADM IN Attending Dr: Salvador Alonso MD Copies to: ~ Date of Service: 05/22/2022 Subjective Subjective Narrative: This is 56-year-old male patient with a past medical history of chronic kidney disease stage V from diabetic and hypertensive nephropathy follows with me in renal office. Coronary artery disease with history of myocardial infarction, heart failure with reduced ejection fraction, hyperlipidemia, insulin-dependent diabetes mellitus and hypothyroidism. Patient was referred to the hospital by his podiatric physician for worsening right lateral foot ulcer. Patient had recent partial fifth ray amputation of his right foot. Patient was discharged to finish antibiotics. Foot MRI from yesterday showed edema in the head of the second metatarsal as well as the proximal and middle phalanx of the fourth digitsuspicious for osteomyelitis. Edema is also noted at the fourth transmetatarsaljunction suspicious for osteomyelitis. There is also marrow edema affecting thehead of the third metatarsal as well as the proximal phalanx of the third digit suspicious for osteomyelitis. There is evidence of ulceration along the lateralsoft tissues of the right foot with subcutaneous emphysema. There is a fluid collection along the interspace between the heads of the third and the fourth metatarsal suspicious for abscess formation. There is diffuse soft tissue swelling consistent with cellulitis. Patient is scheduled for OR today at 5:30 for possible more amputation with I&D. Currently on vancomycin IV. Renal team is consulted for CKD management. Last office visit with me was March 2022 when he was referred to vascular surgeon for PD catheter placement which was supposed to be done next week. Patient has been following with hematology clinic here in [facility] for CAROL injection. Patient missed her last appointment. Hemoglobin this morning 7.7 g deciliter. Kidney function remains at baseline with today serum creatinine 5.2 mmol/L and GFR 11 mm/min. BUN 72. Potassium 4.0. Serum bicarb 20 Interval history: Patient was seen and examined in his room. Patient had right fourth toe amputated with I&D of right foot abscess done earlier today. Still on antibiotics vancomycin and Zosyn. Waiting on OR culture to finalize antibiotics. Patient denied nausea vomiting. No abdominal pain. No chest pain. No shortness of breath. No diarrhea. No cough. No fever Exam Physical Exam Vital Signs: Temp Pulse Resp BP Pulse Ox O2 Del Method 98.0 F 68 16 148/73 H 95 Room Air 05/22/22 11:33 05/22/22 11:33 05/22/22 11:33 05/22/22 11:33 05/22/22 11:33 05/22/22 11:33 Narrative: General: No acute distress Head :atraumatic normocephalic Eyes: PERRLA. Significant pallor Neck: no JVD no bruit. Heart: S1-S2. RRR Respiratory: Clear to auscultation. No wheezing. No crackles Abdomen: Soft, positive bowel sounds,no tenderness. Neurology: Awake alert oriented x3. No focal deficits Extremity. No cyanosis. Trace edema of right lower extremity. Left foot is wrapped by gauze Skin: No skin rash Objective Intake and Output I&O: Intake & Output 05/19/22 05/20/22 05/21/22 05/22/22 23:59 23:59 23:59 23:59 Intake Total 1040 / 1040 900 / 900 340 / 340 Output Total 400 / 400 901 / 901 800 / 800 Balance 640 / 640 -1 / -1 -460 / -460 Weight 84.4 kg 84.4 kg 84.6 kg Meds and Allergies Meds: Active Medications Acetaminophen (Acetaminophen 325 Mg Tablet) 650 mg PO Q6H PRN PRN Reason: Pain Scale 1 - 3 or fever Stop: 05/20/23 13:39 Last Admin: 05/22/22 06:05 Dose: 650 mg Bumetanide (Bumetanide 2 Mg Tablet) 2 mg PO DAILY [facility] Stop: 05/21/23 08:59 Last Admin: 05/22/22 08:34 Dose: 2 mg Carvedilol (Carvedilol 12.5 Mg Tablet) 37.5 mg PO BID.WITH.MEALS [facility] Stop: 05/20/23 16:59 Last Admin: 05/22/22 08:34 Dose: 37.5 mg Cyproheptadine HCl (Cyproheptadine 4 Mg Tablet) 4 mg PO DAILY [facility] Stop: 05/21/23 08:59 Last Admin: 05/22/22 08:33 Dose: 4 mg Ezetimibe (Ezetimibe 10 Mg Tablet) 10 mg PO DAILY [facility] Stop: 05/21/23 08:59 Last Admin: 05/22/22 08:34 Dose: 10 mg Hydralazine HCl (Hydralazine 50 Mg Tablet) 50 mg PO TID [facility] Stop: 05/20/23 13:59 Last Admin: 05/22/22 08:34 Dose: 50 mg Piperacillin Sod/Tazobactam Sod (Zosyn 2.25gm) 2.25 gm in 100 mls @ 200 mls/hr IV Q6H [facility] Last Admin: 05/22/22 11:31 Dose: 200 mls/hr Lactated Ringer's (Lactated Ringers) 1,000 mls @ 20 mls/hr IV .Q24H [facility] Stop: 05/22/22 13:54 Last Admin: 05/21/22 15:44 Dose: 20 mls/hr Insulin Glargine (Insulin Glargine 300 Units/3 Ml Insuln.Pen) 16 units SUBCUT QAM [facility] Stop: 05/21/23 08:59 Last Admin: 05/22/22 08:34 Dose: 16 units Isosorbide Dinitrate (Isosorbide Dinitrate 10 Mg Tablet) 10 mg PO TID [facility] Stop: 05/20/23 13:59 Last Admin: 05/22/22 08:34 Dose: 10 mg Levothyroxine Sodium (Levothyroxine 100 Mcg Tablet) 100 mcg PO DAILY@0630 [facility] Stop: 05/21/23 06:29 Last Admin: 05/22/22 06:05 Dose: 100 mcg Liothyronine Sodium (Liothyronine 5 Mcg Tablet) 10 mcg PO DAILY [facility] Stop: 05/21/23 08:59 Last Admin: 05/22/22 08:33 Dose: 10 mcg Multivitamins (Multivitamin 1 Tab Tablet) 1 tab PO DAILY [facility] Stop: 05/21/23 08:59 Last Admin: 05/22/22 08:33 Dose: 1 tab Nifedipine (Nifedipine Er.24hr 30 Mg Tab.Er.24) 30 mg PO BID [facility] Stop: 05/20/23 20:59 Last Admin: 05/22/22 08:34 Dose: 30 mg Ondansetron HCl (Ondansetron 4 Mg/2 Ml Vial) 4 mg IV-PUSH Q8H PRN PRN Reason: Nausea And Vomiting Stop: 05/20/23 13:39 Oxycodone HCl (Oxycodone Ir 5 Mg Tablet) 5 mg PO Q6H PRN PRN Reason: Pain Scale 4 - 7 Pantoprazole Sodium (Pantoprazole 40 Mg Tablet.) 40 mg PO BID [facility] Stop: 05/20/23 20:59 Last Admin: 05/22/22 08:34 Dose: 40 mg Potassium Chloride (Potassium Chloride Er 20 Meq Tab.Er.Prt) 40 meq PO DAILY PRN PRN Reason: Hypokalemia Stop: 05/20/23 13:39 Sodium Bicarbonate (Sodium Bicarbonate 650 Mg Tablet) 1,300 mg PO BID [facility] Stop: 05/20/23 20:59 Last Admin: 05/22/22 08:33 Dose: 1,300 mg Sodium Chloride (Sodium Chloride 0.9 % 10 Ml Syringe) 0 ml IV-PUSH PRN PRN PRN Reason: Flush Stop: 05/20/23 10:09 Last Admin: 05/22/22 06:50 Dose: 10 ml Vancomycin HCl (Vancomycin - Pharmacy Dosing 1 Each Miscell) 1 each IV ONCE PRN; Protocol PRN Reason: ALBERTA.Pharmacy Consult Vitamin D (Cholecalciferol 25 Mcg (1,000 Units) Tablet) 50 mcg PO DAILY [facility] Stop: 05/21/23 08:59 Last Admin: 05/22/22 08:33 Dose: 50 mcg Allergies Sulfa (Sulfonamide Antibiotics) Allergy (Verified 05/20/22 10:10) Hives Results Labs 05/22/22 05:56 05/22/22 05:56 Labs: 05/21/22 05/22/22 08:07 05:56 BUN 69 H Creatinine 4.75 H Phosphorus 4.5 Iron Saturation 19.2 L Ferritin 757.4 H Albumin 1.7 L Radiology Impressions Impressions - last 24 hours: Any impression(s) listed above is documentation that was entered by the reading physician into a diagnostic report(s) for Gopal Yates Jr. I have reviewed the report(s) and am incorporating any findings in the treatment plan of this patient where applicable. A&P - Nephrology Assessment/Plan (1) CKD (chronic kidney disease) stage 5, GFR less than 15 ml/min: Plan: Patient has advanced CKD from diabetic nephropathy. Patient follows with me in the renal office. Last visit was March 2022 when he was referred to general surgery for PD catheter placement which supposed to be done next week. Kidney function remains at baseline. There is no urgent need to start hemodialysis. Iwill continue to monitor renal function panel while he is on antibiotics. Please keep vancomycin level between 15 and 20 to avoid tubular injury. Avoid NSAIDs for pain control. Avoid IV contrast. Continue oral sodium bicarb. Check renal function panel in the morning (2) Diabetes mellitus with diabetic neuropathy: Plan: Patient has insulin-dependent diabetes mellitus. Currently he is on insulin glargine 16 units daily. I do not see insulin covering the meals. I will deferdiabetes measurement to the primary service (3) Hypertensive kidney disease with chronic kidney disease stage V: Plan: Blood pressure seems well controlled. Volume status is well controlled 2. Patient is on Bumex, Coreg, hydralazine, nifedipine. I will continue to monitorblood pressure and adjust medications as needed (4) Anemia of renal disease: Plan: Patient has anemia from CKD. Patient has been following with hematology clinic here in [facility]. Patient missed the last appointment. Patient received 1 unit of RBC yesterday. Patient also was given 1 dose of Epogen 20,000 units May 21 Continue to monitor H&H (5) Osteomyelitis of right foot: Plan: Right foot MRI findings as as in HPI. Patient currently covered by vancomycin and Zosyn IV. Status post amputation of the right fourth toe with I&D of right foot abscess. Patient likely need wound VAC placement. Pediatric service is following Documented By: Cristobal Butts MD 05/22/22 1311 Signed By: <Electronically signed by Cristobal Butts MD> 05/22/[address] [facility] Work Phone: Progress note Author Salvador Alonso [facility] May 22, 2022 2:54pm Note Date/Time May 22, 2022 2:55 pm [facility] [address] [place] [address] Hospitalist Progress Note Signed Patient: Gopal Yates Jr MR#: [id number] : 1965 Acct:[id number] Age/Sex: 56 / M Adm Date: 3 Loc: Room: [address] [place] [address] Type: ADM IN Attending Dr: Salvador Alonso MD Copies to: ~ Date of Service: 05/22/2022 Subjective Subjective Narrative: Patient seen and examined. Patient underwent surgery yesterday. Complaining ofburning sensation in the right foot which is expected from the surgery. Denies any other complaints Exam Physical Exam Vital Signs: Temp Pulse Resp BP Pulse Ox O2 Del Method 98.0 F 68 16 148/73 H 95 Room Air 05/22/22 11:33 05/22/22 11:33 05/22/22 11:33 05/22/22 11:33 05/22/22 11:33 05/22/22 11:33 Narrative: General: Awake, alert, oriented x3 not in acute distress HEENT: Normocephalic, atraumatic, PERRLA, normal mucosa Cardiovascular: Regular rate and rhythm , S1-S2 heard, no murmurs or gallops Lungs: No wheezing or rhonchi heard Gastrointestinal: Soft, nontender, bowel sounds heard Extremities: Right foot dressing dry and intact Neurological: no sensory or motor deficit Skin: Dry and warm, no rashes or lesions Psych: Normal mood and affect Objective Lab Results 05/22/22 05:56 05/22/22 05:56 Microbiology Results Microbiology 05/21/22 18:37 Foot,Right - Ulcer Aerobic Culture - Preliminary No Growth 1 Day 05/21/22 18:37 Foot,Right - Ulcer Anaerobic Culture - Preliminary No Anaerobes Isolated 1 Day 05/21/22 18:37 Foot,Right - Ulcer Gram Stain - Final 05/20/22 11:28 Toe,Right Fifth - Abscess Superficial Wound Culture - Final Light Normal Skin Efren 2 Days 05/20/22 11:12 Blood - Left Antecubital Blood Culture - Preliminary No Growth 2 Days 05/20/22 11:00 Blood - Left Antecubital Blood Culture - Preliminary No Growth 2 Days Meds Allergies and Active Meds Allergies Sulfa (Sulfonamide Antibiotics) Allergy (Verified 05/20/22 10:10) Hives Active Meds: Active Medications Generic Name Dose Route Start Last Admin Trade Name Freq PRN Reason Stop Dose Admin Acetaminophen 650 mg 05/20/22 13:40 05/22/22 06:05 Acetaminophen 325 Mg Tablet PO 05/20/23 13:39 650 mg Q6H PRN Administration Pain Scale 1 - 3 or fever Bumetanide 2 mg 05/21/22 09:00 05/22/22 08:34 Bumetanide 2 Mg Tablet PO 05/21/23 08:59 2 mg DAILY [facility] Administration Carvedilol 37.5 mg 05/20/22 17:00 05/22/22 08:34 Carvedilol 12.5 Mg Tablet PO 05/20/23 16:59 37.5 mg BID.WITH.MEALS [facility] Administration Cyproheptadine HCl 4 mg 05/21/22 09:00 05/22/22 08:33 Cyproheptadine 4 Mg Tablet PO 05/21/23 08:59 4 mg DAILY [facility] Administration Ezetimibe 10 mg 05/21/22 09:00 05/22/22 08:34 Ezetimibe 10 Mg Tablet PO 05/21/23 08:59 10 mg DAILY [facility] Administration Hydralazine HCl 50 mg 05/20/22 14:00 05/22/22 08:34 Hydralazine 50 Mg Tablet PO 05/20/23 13:59 50 mg TID [facility] Administration Piperacillin Sod/Tazobactam Sod 2.25 gm in 100 mls @ 200 mls/hr 05/21/22 11:30 05/22/22 11:31 Zosyn 2.25gm IV 200 mls/hr Q6H [facility] Administration Insulin Glargine 16 units 05/21/22 09:00 05/22/22 08:34 Insulin Glargine 300 Units/3 Ml Insuln.Pen SUBCUT 05/21/23 08:59 16 units QAM [facility] Administration Isosorbide Dinitrate 10 mg 05/20/22 14:00 05/22/22 08:34 Isosorbide Dinitrate 10 Mg Tablet PO 05/20/23 13:59 10 mg TID [facility] Administration Levothyroxine Sodium 100 mcg 05/21/22 06:30 05/22/22 06:05 Levothyroxine 100 Mcg Tablet PO 05/21/23 06:29 100 mcg DAILY@0630 [facility] Administration Liothyronine Sodium 10 mcg 05/21/22 09:00 05/22/22 08:33 Liothyronine 5 Mcg Tablet PO 05/21/23 08:59 10 mcg DAILY [facility] Administration Multivitamins 1 tab 05/21/22 09:00 05/22/22 08:33 Multivitamin 1 Tab Tablet PO 05/21/23 08:59 1 tab DAILY [facility] Administration Nifedipine 30 mg 05/20/22 21:00 05/22/22 08:34 Nifedipine Er.24hr 30 Mg Tab.Er.24 PO 05/20/23 20:59 30 mg BID [facility] Administration Ondansetron HCl 4 mg 05/20/22 13:40 Ondansetron 4 Mg/2 Ml Vial IV-PUSH 05/20/23 13:39 Q8H PRN Nausea And Vomiting Oxycodone HCl 5 mg 05/20/22 13:40 Oxycodone Ir 5 Mg Tablet PO Q6H PRN Pain Scale 4 - 7 Pantoprazole Sodium 40 mg 05/20/22 21:00 05/22/22 08:34 Pantoprazole 40 Mg Tablet.Dr PO 05/20/23 20:59 40 mg BID [facility]D Administration Potassium Chloride 40 meq 05/20/22 13:40 Potassium Chloride Er 20 Meq Tab.Er.Prt PO 05/20/23 13:39 DAILY PRN Hypokalemia Sodium Bicarbonate 1,300 mg 05/20/22 21:00 05/22/22 08:33 Sodium Bicarbonate 650 Mg Tablet PO 05/20/23 20:59 1,300 mg BID [facility]D Administration Sodium Chloride 0 ml 05/20/22 10:10 05/22/22 06:50 Sodium Chloride 0.9 % 10 Ml Syringe IV-PUSH 05/20/23 10:09 10 ml PRN PRN Administration Flush Vancomycin HCl 1 each 05/20/22 13:45 Vancomycin - Pharmacy Dosing 1 Each Miscell IV ONCE PRN ZZ.Pharmacy Consult Protocol Vitamin D 50 mcg 05/21/22 09:00 05/22/22 08:33 Cholecalciferol 25 Mcg (1,000 Units) Tablet PO 05/21/23 08:59 50 mcg DAILY [facility] Administration A&P - Hospitalist Assessment/Plan (1) Osteomyelitis of right foot: (2) Ulcer of right foot with necrosis of bone: (3) Diabetic foot ulcer with osteomyelitis: (4) Hypertensive kidney disease with chronic kidney disease stage V: Plan S/p right foot fourth digit amputation and revision of fifth metatarsal amputation with I&D to the right foot Patient is hemodynamically stable and is afebrile, saturating 96% on room air X-ray right foot showed osteopenia along the lateral margin of the distal fourthmetatarsal suspicious for osteomyelitis, subcutaneous emphysema in the lateral soft tissues of the right foot suspicious for cellulitis with underlying abscess Labs showed no leukocytosis, hemoglobin 8.4 Kidney functions at baseline, nephrology following Infectious disease on board. Cultures showed no growth so far. Continue IV antibiotics. Patient will need PICC line and IV antibiotics on discharge DVT prophylaxis CODE STATUS full code Documented By: Salvador Alonso MD 05/22/221452 Signed By: <Electronically signed by Salvador Alonso MD> 05/22/[address] [facility] Work Phone: Progress note Author Salvador Alonso [facility] May 23, 2022 10:32am Note Date/Time May 23, 2022 10:3 2am [facility] [address] [place] [address] Hospitalist Progress Note Signed Patient: Gopal Yates Jr MR#: [id number] : 1965 Acct:[id number] Age/Sex: 56 / M Adm Date: 3 Loc: Room: [address] [place] [address] Type: ADM IN Attending Dr: Salvador Alonso MD Copies to: ~ Date of Service: 05/23/2022 Subjective Subjective Narrative: Patient seen and examined. No acute overnight events per RN. Patient has some pain in the foot which is fairly well controlled with pain medication. She is awaiting IV antibiotics to be arranged at home. Exam Physical Exam Vital Signs: Temp Pulse Resp BP Pulse Ox O2 Del Method 97.7 F 63 18 139/72 96 Room Air 05/23/22 09:29 05/23/22 09:29 05/23/22 09:29 05/23/22 09:29 05/23/22 09:29 05/23/22 09:29 Narrative: General: Awake, alert, oriented x3 not in acute distress HEENT: Normocephalic, atraumatic, PERRLA, normal mucosa Cardiovascular: Regular rate and rhythm , S1-S2 heard, no murmurs or gallops Lungs: No wheezing or rhonchi heard Gastrointestinal: Soft, nontender, bowel sounds heard Extremities: Right foot dressing dry and intact Neurological: no sensory or motor deficit Skin: Dry and warm, no rashes or lesions Psych: Normal mood and affect Objective Lab Results 05/23/22 05:46 05/23/22 05:46 Microbiology Results Microbiology 05/21/22 18:37 Foot,Right - Ulcer Aerobic Culture - Preliminary No Growth 1 Day 05/21/22 18:37 Foot,Right - Ulcer Anaerobic Culture - Preliminary No Anaerobes Isolated 1 Day 05/21/22 18:37 Foot,Right - Ulcer Gram Stain - Final 05/20/22 11:28 Toe,Right Fifth - Abscess Superficial Wound Culture - Final Light Normal Skin Efren 2 Days 05/20/22 11:12 Blood - Left Antecubital Blood Culture - Preliminary No Growth 2 Days 05/20/22 11:00 Blood - Left Antecubital Blood Culture - Preliminary No Growth 2 Days Meds Allergies and Active Meds Allergies Sulfa (Sulfonamide Antibiotics) Allergy (Verified 05/20/22 10:10) Hives Active Meds: Active Medications Generic Name Dose Route Start Last Admin Trade Name Freq PRN Reason Stop Dose Admin Acetaminophen 650 mg 05/20/22 13:40 05/22/22 06:05 Acetaminophen 325 Mg Tablet PO 05/20/23 13:39 650 mg Q6H PRN Administration Pain Scale 1 - 3 or fever Bumetanide 2 mg 05/21/22 09:00 05/23/22 09:36 Bumetanide 2 Mg Tablet PO 05/21/23 08:59 2 mg DAILY [facility] Administration Carvedilol 37.5 mg 05/20/22 17:00 05/23/22 09:35 Carvedilol 12.5 Mg Tablet PO 05/20/23 16:59 37.5 mg BID.WITH.MEALS [facility] Administration Cyproheptadine HCl 4 mg 05/21/22 09:00 05/23/22 09:36 Cyproheptadine 4 Mg Tablet PO 05/21/23 08:59 4 mg DAILY [facility] Administration Ezetimibe 10 mg 05/21/22 09:00 05/23/22 09:35 Ezetimibe 10 Mg Tablet PO 05/21/23 08:59 10 mg DAILY [facility] Administration Hydralazine HCl 50 mg 05/20/22 14:00 05/23/22 09:36 Hydralazine 50 Mg Tablet PO 05/20/23 13:59 50 mg TID [facility]D Administration Piperacillin Sod/Tazobactam Sod 2.25 gm in 100 mls @ 200 mls/hr 05/21/22 11:30 05/23/22 05:35 Zosyn 2.25gm IV 200 mls/hr Q6H [facility] Administration Insulin Glargine 16 units 05/21/22 09:00 05/23/22 09:38 Insulin Glargine 300 Units/3 Ml Insuln.Pen SUBCUT 05/21/23 08:59 16 units QAM [facility] Administration Isosorbide Dinitrate 10 mg 05/20/22 14:00 05/23/22 09:37 Isosorbide Dinitrate 10 Mg Tablet PO 05/20/23 13:59 10 mg TID REDD Administration Levothyroxine Sodium 100 mcg 05/21/22 06:30 05/23/22 05:34 Levothyroxine 100 Mcg Tablet PO 05/21/23 06:29 100 mcg DAILY@0630 [facility] Administration Liothyronine Sodium 10 mcg 05/21/22 09:00 05/23/22 09:35 Liothyronine 5 Mcg Tablet PO 05/21/23 08:59 10 mcg DAILY [facility] Administration Multivitamins 1 tab 05/21/22 09:00 05/23/22 09:36 Multivitamin 1 Tab Tablet PO 05/21/23 08:59 1 tab DAILY [facility] Administration Nifedipine 30 mg 05/20/22 21:00 05/23/22 09:36 Nifedipine Er.24hr 30 Mg Tab.Er.24 PO 05/20/23 20:59 30 mg BID [facility] Administration Ondansetron HCl 4 mg 05/20/22 13:40 Ondansetron 4 Mg/2 Ml Vial IV-PUSH 05/20/23 13:39 Q8H PRN Nausea And Vomiting Oxycodone HCl 5 mg 05/20/22 13:40 Oxycodone Ir 5 Mg Tablet PO Q6H PRN Pain Scale 4 - 7 Pantoprazole Sodium 40 mg 05/20/22 21:00 05/23/22 09:35 Pantoprazole 40 Mg Tablet.Dr PO 05/20/23 20:59 40 mg BID REDD Administration Potassium Chloride 40 meq 05/20/22 13:40 Potassium Chloride Er 20 Meq Tab.Er.Prt PO 05/20/23 13:39 DAILY PRN Hypokalemia Sodium Bicarbonate 1,300 mg 05/20/22 21:00 05/23/22 09:36 Sodium Bicarbonate 650 Mg Tablet PO 05/20/23 20:59 1,300 mg BID REDD Administration Sodium Chloride 0 ml 05/20/22 10:10 05/22/22 06:50 Sodium Chloride 0.9 % 10 Ml Syringe IV-PUSH 05/20/23 10:09 10 ml PRN PRN Administration Flush Vancomycin HCl 1 each 05/20/22 13:45 Vancomycin - Pharmacy Dosing 1 Each Miscell IV ONCE PRN ZZ.Pharmacy Consult Protocol Vitamin D 50 mcg 05/21/22 09:00 05/23/22 09:36 Cholecalciferol 25 Mcg (1,000 Units) Tablet PO 05/21/23 08:59 50 mcg DAILY [facility] Administration A&P - Hospitalist Assessment/Plan (1) Osteomyelitis of right foot: (2) Ulcer of right foot with necrosis of bone: (3) Diabetic foot ulcer with osteomyelitis: (4) Hypertensive kidney disease with chronic kidney disease stage V: Plan S/p right foot fourth digit amputation and revision of fifth metatarsal amputation with I&D to the right foot Patient is hemodynamically stable and is afebrile, saturating 96% on room air Hemoglobin stable Kidney functions at baseline, nephrology following Had PICC line yesterday. IV antibiotics ordered per ID however could not be arranged because of weekend Continue IV antibiotics DVT prophylaxis CODE STATUS full code Documented By: Salvador Alonso MD 05/23/22 1031 Signed By: <Electronically signed by Salvador Alonso MD> 05/23/22 1032 [facility] Work Phone: Progress note Author Eddy Griggs [facility] May 23, 2022 10:48am Note Date/Time May 23, 2022 10:4 8am [facility] [address] [place] [address] Podiatry Progress Note Signed Patient: Gopal Yates Jr MR#: [id number] : 1965 Acct:[id number] Age/Sex: 56 / M Adm Date: 3 Loc: Room: [address] [place] [address] Type: ADM IN Attending Dr: Salvador Alonso MD Copies to: ~ Subjective Subjective Date of Service: Date of Service: 05/23/2022 Time of Service: 10:46 Narrative: Mr. Yates is a 56 year old male being seen at this time for POD #2 right foot 4th toe amputation, debridement and pulse lavage as well as I&D abscess right foot. He states that he has a mild stinging pain to the foot, but otherwise no pain. Denies any N/V/D/F/C. Patient seems understand the need to completely offload right foot he understands need for elevation of foot. Patient understands he is a very complicated patient with multiple comorbidities that are brought him to this level of pathology and surgery and will also obviously impair healing. He is very pleasant individual with diabetes mellitus, neuropathy and advanced renal disease as well unfortunately. Osteomyelitis is led to the amputation of partial right foot as documented previously. Exam Physical Exam Vital Signs: Temp Pulse Resp BP Pulse Ox O2 Del Method 97.7 F 63 18 139/72 96 Room Air 05/23/22 09:29 05/23/22 09:29 05/23/22 09:29 05/23/22 09:29 05/23/22 09:29 05/23/22 09:29 Narrative: Patient is awake alert and orient x3 resting comfortably in bed. Nurses presentthrough part of the examination. Dressing is intact right foot without any drainage coming through. The dressing was removed: Vascular examination shows that pulses appear to be intact and capillary refill less than 2 seconds skin is warm. Neurological examination: Neuropathy right lower extremity including motor, autonomic, sensory types: Nonpainful on examination removal of packing/dressings. Muscle skeletal examination: Right lower extremity weakness noted to toes however patient is able to dorsiflex/plantarflex right foot and ankle. Dermatology examination: Incision site to the lateral right foot is well copated. There is an open defect to the lateral foot proximal 5th metatarsal region with deep tissue and remiaing bone to the right 5th metatarsal exposed. There is no active pustular drainage to the right foot with milking. No malodornoted. Area of depth along the lateral foot toward the 3rd MPJ appears healthy with no active drainage. Cellulitis to the right foot does appear to be improving. Currently wound VAC is applied to the right foot and is under good suction with no evidence of drainage or moisture Orthopedic: amputation of the right 5th ray and 4th toe Radiology examination: X-ray 05-20-2022 reveals amputation obviously of the fifth toe and right fifth metatarsal partial base is intact. Appears to be possible osteomyelitis right fourth metatarsal region and fourth toe to a lesser degree. I have reviewed the film I agree with the reading. MRI read final result is still pending. Assessment/Plan (1) Osteomyelitis of right foot: Plan: Patient is s/p right foot 4th digit amputation and revision of 5th metatarsal amputation with I&D to the right foot. He is doing well with pain. Prior cultures from hospitalization 2 weeks ago did grow an anarobe and final culture pending from the right foot surgery culture. I do feel that the patient would benefit from a course of IV antibiotics due to the concern for osteomyelitis to the right 3rd and 4th metatarsals based on MRI but patient is a difficult ase due to his renal function. ID is on board and patient has had PICC line placed. Wound VAC has been applied to the right foot. He states that he is scheduled for discharge on Wednesday once they are able to arrange visits at the infusion center. It has been very difficult getting home health care ordered for the patient due to his insurance and limited staffing. Patient states that he is okay to continue to go to the infusion center for dressing changes and him and his are going to be trained on the IV antibiotics. At this point time footappears stable, no need for additional surgery. Podiatry will continue to follow while patient is admitted.. Code(s): M86.9 - Osteomyelitis, unspecified (2) Ulcer of right foot with necrosis of bone: Code(s): L97.514 - Non-pressure chronic ulcer of other part of right foot with necrosis of bone (3) Diabetic foot ulcer with osteomyelitis: Code(s): E11.621 - Type 2 diabetes mellitus with foot ulcer; E11.69 - Type 2 diabetes mellitus with other specified complication; L97.509 - Non-pressure chronic ulcerof other part of unspecified foot with unspecified severity; M86.9 - Osteomyelitis, unspecified (4) Type 2 diabetes mellitus with diabetic chronic kidney disease: Code(s): E11.22 - Type 2 diabetes mellitus with diabetic chronic kidney disease (5) Hypertensive kidney disease with chronic kidney disease stage V: Code(s): I12.0 - Hypertensive chronic kidney disease with stage 5 chronic kidney disease or end stage renal disease; N18.5 - Chronic kidney disease, stage 5 (6) Anemia of renal disease: Code(s): N18.9 - Chronic kidney disease, unspecified; D63.1 - Anemia in chronic kidney disease (7) CKD (chronic kidney disease) stage 5, GFR less than 15 ml/min: Code(s): N18.5 - Chronic kidney disease, stage 5 (8) Surgical wound present: Code(s): T14.8XXA - Other injury of unspecified body region, initial encounter (9) Diabetes mellitus with diabetic neuropathy: Code(s): E11.40 - Type 2 diabetes mellitus with diabetic neuropathy, unspecified Documented By: Eddy Griggs DPM 05/23/22 10 46 Signed By: <Electronically signed by HARRY Griggs> 05/23/[address] [facility] Work Phone: Progress note Author Cristobal Butts [facility] May 23, 2022 1:42pm Note Date/Time May 23, 2022 1:40 pm [facility] [address] [place] [address] Nephrology Progress Note Signed Patient: Gopal Yates Jr MR#: [id number] : 1965 Acct:[id number] Age/Sex: 56 / M Adm Date: 3 Loc: Room: [address] [place] [address] Type: ADM IN Attending Dr: Salvador Alonso MD Copies to: ~ Date of Service: 05/23/2022 Subjective Subjective Narrative: This is 56-year-old male patient with a past medical history of chronic kidney disease stage V from diabetic and hypertensive nephropathy follows with me in renal office. Coronary artery disease with history of myocardial infarction, heart failure with reduced ejection fraction, hyperlipidemia, insulin-dependent diabetes mellitus and hypothyroidism. Patient was referred to the hospital by his podiatric physician for worsening right lateral foot ulcer. Patient had recent partial fifth ray amputation of his right foot. Patient was discharged to finish antibiotics. Foot MRI from yesterday showed edema in the head of the second metatarsal as well as the proximal and middle phalanx of the fourth digitsuspicious for osteomyelitis. Edema is also noted at the fourth transmetatarsaljunction suspicious for osteomyelitis. There is also marrow edema affecting thehead of the third metatarsal as well as the proximal phalanx of the third digit suspicious for osteomyelitis. There is evidence of ulceration along the lateralsoft tissues of the right foot with subcutaneous emphysema. There is a fluid collection along the interspace between the heads of the third and the fourth metatarsal suspicious for abscess formation. There is diffuse soft tissue swelling consistent with cellulitis. Patient is scheduled for OR today at 5:30 for possible more amputation with I&D. Currently on vancomycin IV. Renal team is consulted for CKD management. Last office visit with me was March 2022 when he was referred to vascular surgeon for PD catheter placement which was supposed to be done next week. Patient has been following with hematology clinic here in [facility] for CAROL injection. Patient missed her last appointment. Hemoglobin this morning 7.7 g deciliter. Kidney function remains at baseline with today serum creatinine 5.2 mmol/L and GFR 11 mm/min. BUN 72. Potassium 4.0. Serum bicarb 20 Interval history: Patient was seen and examined in his room. Patient had right fourth toe amputated with I&D of right foot abscess done May 22. Patient now has right foot wound VAC Still on antibiotics vancomycin and Zosyn. Waiting on OR culture to finalize antibiotics. Patient denied nausea vomiting. No abdominal pain. No chest pain. No shortness of breath. No diarrhea. No cough. No fever Exam Physical Exam Vital Signs: Temp Pulse Resp BP Pulse Ox O2 Del Method 98 F 50 L 18 134/80 95 Room Air 05/23/22 11:27 05/23/22 11:27 05/23/22 11:27 05/23/22 11:27 05/23/22 11:27 05/23/22 11:28 Narrative: General: No acute distress Head :atraumatic normocephalic Eyes: PERRLA. Significant pallor Neck: no JVD no bruit. Heart: S1-S2. RRR Respiratory: Clear to auscultation. No wheezing. No crackles Abdomen: Soft, positive bowel sounds,no tenderness. Neurology: Awake alert oriented x3. No focal deficits Extremity. No cyanosis. Trace edema of right lower extremity. Right foot is wrapped. Wound VAC in place Skin: No skin rash Objective Intake and Output I&O: Intake & Output 05/20/22 05/21/22 05/22/22 05/23/22 23:59 23:59 23:59 23:59 Intake Total 1040 / 1040 900 / 900 1840 / 1840 500 / 500 Output Total 400 / 400 901 / 901 800 / 800 Balance 640 / 640 -1 / -1 1040 / 1040 500 / 500 Weight 84.4 kg 84.4 kg 84.6 kg 85.2 kg Meds and Allergies Meds: Active Medications Acetaminophen (Acetaminophen 325 Mg Tablet) 650 mg PO Q6H PRN PRN Reason: Pain Scale 1 - 3 or fever Stop: 05/20/23 13:39 Last Admin: 05/22/22 06:05 Dose: 650 mg Bumetanide (Bumetanide 2 Mg Tablet) 2 mg PO DAILY [facility] Stop: 05/21/23 08:59 Last Admin: 05/23/22 09:36 Dose: 2 mg Carvedilol (Carvedilol 12.5 Mg Tablet) 37.5 mg PO BID.WITH.MEALS [facility] Stop: 05/20/23 16:59 Last Admin: 05/23/22 09:35 Dose: 37.5 mg Cyproheptadine HCl (Cyproheptadine 4 Mg Tablet) 4 mg PO DAILY [facility] Stop: 05/21/23 08:59 Last Admin: 05/23/22 09:36 Dose: 4 mg Ezetimibe (Ezetimibe 10 Mg Tablet) 10 mg PO DAILY [facility] Stop: 05/21/23 08:59 Last Admin: 05/23/22 09:35 Dose: 10 mg Hydralazine HCl (Hydralazine 50 Mg Tablet) 50 mg PO TID [facility] Stop: 05/20/23 13:59 Last Admin: 05/23/22 09:36 Dose: 50 mg Piperacillin Sod/Tazobactam Sod (Zosyn 2.25gm) 2.25 gm in 100 mls @ 200 mls/hr IV Q6H [facility] Last Admin: 05/23/22 11:31 Dose: 200 mls/hr Insulin Glargine (Insulin Glargine 300 Units/3 Ml Insuln.Pen) 16 units SUBCUT QAM [facility] Stop: 05/21/23 08:59 Last Admin: 05/23/22 09:38 Dose: 16 units Isosorbide Dinitrate (Isosorbide Dinitrate 10 Mg Tablet) 10 mg PO TID [facility] Stop: 05/20/23 13:59 Last Admin: 05/23/22 09:37 Dose: 10 mg Levothyroxine Sodium (Levothyroxine 100 Mcg Tablet) 100 mcg PO DAILY@0630 [facility] Stop: 05/21/23 06:29 Last Admin: 05/23/22 05:34 Dose: 100 mcg Liothyronine Sodium (Liothyronine 5 Mcg Tablet) 10 mcg PO DAILY [facility] Stop: 05/21/23 08:59 Last Admin: 05/23/22 09:35 Dose: 10 mcg Multivitamins (Multivitamin 1 Tab Tablet) 1 tab PO DAILY [facility] Stop: 05/21/23 08:59 Last Admin: 05/23/22 09:36 Dose: 1 tab Nifedipine (Nifedipine Er.24hr 30 Mg Tab.Er.24) 30 mg PO BID [facility] Stop: 05/20/23 20:59 Last Admin: 05/23/22 09:36 Dose: 30 mg Ondansetron HCl (Ondansetron 4 Mg/2 Ml Vial) 4 mg IV-PUSH Q8H PRN PRN Reason: Nausea And Vomiting Stop: 05/20/23 13:39 Oxycodone HCl (Oxycodone Ir 5 Mg Tablet) 5 mg PO Q6H PRN PRN Reason: Pain Scale 4 - 7 Pantoprazole Sodium (Pantoprazole 40 Mg Tablet.Dr) 40 mg PO BID [facility] Stop: 05/20/23 20:59 Last Admin: 05/23/22 09:35 Dose: 40 mg Potassium Chloride (Potassium Chloride Er 20 Meq Tab.Er.Prt) 40 meq PO DAILY PRN PRN Reason: Hypokalemia Stop: 05/20/23 13:39 Sodium Bicarbonate (Sodium Bicarbonate 650 Mg Tablet) 1,300 mg PO BID [facility] Stop: 05/20/23 20:59 Last Admin: 05/23/22 09:36 Dose: 1,300 mg Sodium Chloride (Sodium Chloride 0.9 % 10 Ml Syringe) 0 ml IV-PUSH PRN PRN PRN Reason: Flush Stop: 05/20/23 10:09 Last Admin: 05/22/22 06:50 Dose: 10 ml Vancomycin HCl (Vancomycin - Pharmacy Dosing 1 Each Miscell) 1 each IV ONCE PRN; Protocol PRN Reason: ALBERTA.Pharmacy Consult Vitamin D (Cholecalciferol 25 Mcg (1,000 Units) Tablet) 50 mcg PO DAILY [facility] Stop: 05/21/23 08:59 Last Admin: 05/23/22 09:36 Dose: 50 mcg Allergies Sulfa (Sulfonamide Antibiotics) Allergy (Verified 05/20/22 10:10) Hives Results Labs 05/23/22 05:46 05/23/22 05:46 Labs: 05/23/22 05:46 BUN 69 H Creatinine 4.57 H Phosphorus 4.6 Albumin 1.7 L Radiology Impressions Impressions - last 24 hours: Any impression(s) listed above is documentation that was entered by the reading physician into a diagnostic report(s) for Gopal Yates . I have reviewed the report(s) and am incorporating any findings in the treatment plan of this patient where applicable. A&P - Nephrology Assessment/Plan (1) CKD (chronic kidney disease) stage 5, GFR less than 15 ml/min: Plan: Patient has advanced CKD from diabetic nephropathy. Patient follows with me in the renal office. Last visit was March 2022 when he was referred to general surgery for PD catheter placement which supposed to be done next week. Kidney function remains at baseline. There is no urgent need to start hemodialysis. Iwill continue to monitor renal function panel while he is on antibiotics. Please keep vancomycin level between 15 and 20 to avoid tubular injury. Avoid NSAIDs for pain control. Avoid IV contrast. Continue oral sodium bicarb. Check renal function panel in the morning if he remains inpatient (2) Diabetes mellitus with diabetic neuropathy: Plan: Patient has insulin-dependent diabetes mellitus. Currently he is on insulin glargine 16 units daily. I do not see insulin covering the meals. I will deferdiabetes measurement to the primary service (3) Hypertensive kidney disease with chronic kidney disease stage V: Plan: Blood pressure and volume are well controlled. Patient is on Bumex, Coreg, hydralazine, nifedipine. I will continue to monitor blood pressure and adjust medications as needed (4) Anemia of renal disease: Plan: Patient has anemia from CKD. Patient has been following with hematology clinic here in [facility] for CAROL injection . Patient missed the last appointment. Patient received 1 unit of RBC May 21. Patient also was given 1 dose of Xrzyfd83,000 units May 21 . Continue to monitor H&H (5) Osteomyelitis of right foot: Plan: Right foot MRI findings as as in HPI. Patient currently covered by vancomycin and Zosyn IV. Status post amputation of the right fourth toe with I&D of right foot abscess with wound VAC placement. Pediatric service is following Documented By: Cristobal Butts MD 05/23/22 1339 Signed By: <Electronically signed by Cristobal Butts MD> 05/23/[address] [facility] Work Phone: Progress note Author Salvador Alonso [facility] May 24, 2022 12:12pm Note Date/Time May 24, 2022 12:1 2pm [facility] [address] [place] [address] Hospitalist Progress Note Signed Patient: Gopal Yates Jr MR#: [id number] : 1965 Acct:[id number] Age/Sex: 56 / M Adm Date: 3 Loc: 3T Room: [address] [place] [address] Type: ADM IN Attending Dr: Salvador Alonso MD Copies to: ~ Date of Service: 05/24/2022 Subjective Subjective Narrative: Patient seen and examined. Patient had the moderately loose bowel movements butno odor to it since morning today. She denies any mucus or blood in it. Deniesany nausea, vomiting or abdominal pain. Has been afebrile. He is eating food with no issues. Denies any pain in his foot. Exam Physical Exam Vital Signs: Temp Pulse Resp BP Pulse Ox O2 Del Method 97.9 F 56 L 16 137/71 96 Room Air 05/24/22 07:38 05/24/22 07:38 05/24/22 07:38 05/24/22 07:38 05/24/22 07:38 05/24/22 08:00 Narrative: General: Awake, alert, oriented x3 not in acute distress HEENT: Normocephalic, atraumatic, PERRLA, normal mucosa Cardiovascular: Regular rate and rhythm , S1-S2 heard, no murmurs or gallops Lungs: No wheezing or rhonchi heard Gastrointestinal: Soft, nontender, bowel sounds heard Extremities: Right foot dressing dry and intact Neurological: no sensory or motor deficit Skin: Dry and warm, no rashes or lesions Psych: Normal mood and affect Objective Lab Results 05/24/22 05:45 05/24/22 05:45 Microbiology Results Microbiology 05/20/22 11:12 Blood - Left Antecubital Blood Culture - Preliminary No Growth 4 Days 05/20/22 11:00 Blood - Left Antecubital Blood Culture - Preliminary No Growth 4 Days 05/21/22 18:37 Foot,Right - Ulcer Aerobic Culture - Final No Growth 2 Days 05/21/22 18:37 Foot,Right - Ulcer Anaerobic Culture - Preliminary Bacteroides fragilis 05/21/22 18:37 Foot,Right - Ulcer Gram Stain - Final Meds Allergies and Active Meds Allergies Sulfa (Sulfonamide Antibiotics) Allergy (Verified 05/20/22 10:10) Hives Active Meds: Active Medications Generic Name Dose Route Start Last Admin Trade Name Budq PRN Reason Stop Dose Admin Acetaminophen 650 mg 05/20/22 13:40 05/22/22 06:05 Acetaminophen 325 Mg Tablet PO 05/20/23 13:39 650 mg Q6H PRN Administration Pain Scale 1 - 3 or fever Bumetanide 2 mg 05/21/22 09:00 05/24/22 08:56 Bumetanide 2 Mg Tablet PO 05/21/23 08:59 2 mg DAILY [facility] Administration Carvedilol 37.5 mg 05/20/22 17:00 05/24/22 08:56 Carvedilol 12.5 Mg Tablet PO 05/20/23 16:59 37.5 mg BID.WITH.MEALS [facility] Administration Cyproheptadine HCl 4 mg 05/23/22 21:00 05/24/22 08:55 Cyproheptadine 4 Mg Tablet PO 05/23/23 20:59 4 mg BID [facility] Administration Ezetimibe 10 mg 05/21/22 09:00 05/24/22 08:56 Ezetimibe 10 Mg Tablet PO 05/21/23 08:59 10 mg DAILY [facility] Administration Hydralazine HCl 50 mg 05/20/22 14:00 05/24/22 08:56 Hydralazine 50 Mg Tablet PO 05/20/23 13:59 50 mg TID [facility] Administration Piperacillin Sod/Tazobactam Sod 2.25 gm in 100 mls @ 200 mls/hr 05/21/22 11:30 05/24/22 11:49 Zosyn 2.25gm IV 200 mls/hr Q6H [facility] Administration Insulin Glargine 16 units 05/21/22 09:00 05/24/22 08:56 Insulin Glargine 300 Units/3 Ml Insuln.Pen SUBCUT 05/21/23 08:59 16 units QAM [facility] Administration Isosorbide Dinitrate 10 mg 05/20/22 14:00 05/24/22 08:55 Isosorbide Dinitrate 10 Mg Tablet PO 05/20/23 13:59 10 mg TID [facility] Administration Levothyroxine Sodium 100 mcg 05/21/22 06:30 05/24/22 05:44 Levothyroxine 100 Mcg Tablet PO 05/21/23 06:29 100 mcg DAILY@0630 [facility] Administration Liothyronine Sodium 10 mcg 05/21/22 09:00 05/24/22 08:56 Liothyronine 5 Mcg Tablet PO 05/21/23 08:59 10 mcg DAILY [facility] Administration Multivitamins 1 tab 05/21/22 09:00 05/24/22 08:56 Multivitamin 1 Tab Tablet PO 05/21/23 08:59 1 tab DAILY [facility] Administration Nifedipine 30 mg 05/20/22 21:00 05/24/22 08:55 Nifedipine Er.24hr 30 Mg Tab.Er.24 PO 05/20/23 20:59 30 mg BID [facility] Administration Ondansetron HCl 4 mg 05/20/22 13:40 Ondansetron 4 Mg/2 Ml Vial IV-PUSH 05/20/23 13:39 Q8H PRN Nausea And Vomiting Oxycodone HCl 5 mg 05/20/22 13:40 Oxycodone Ir 5 Mg Tablet PO Q6H PRN Pain Scale 4 - 7 Pantoprazole Sodium 40 mg 05/20/22 21:00 05/24/22 08:56 Pantoprazole 40 Mg Tablet.Dr PO 05/20/23 20:59 40 mg BID [facility] Administration Potassium Chloride 40 meq 05/20/22 13:40 Potassium Chloride Er 20 Meq Tab.Er.Prt PO 05/20/23 13:39 DAILY PRN Hypokalemia Sodium Bicarbonate 1,300 mg 05/20/22 21:00 05/24/22 08:56 Sodium Bicarbonate 650 Mg Tablet PO 05/20/23 20:59 1,300 mg BID [facility] Administration Sodium Chloride 0 ml 05/20/22 10:10 05/24/22 05:44 Sodium Chloride 0.9 % 10 Ml Syringe IV-PUSH 05/20/23 10:09 10 ml PRN PRN Administration Flush Vancomycin HCl 1 each 05/20/22 13:45 Vancomycin - Pharmacy Dosing 1 Each Miscell IV ONCE PRN ZZ.Pharmacy Consult Protocol Vitamin D 50 mcg 05/21/22 09:00 05/24/22 08:56 Cholecalciferol 25 Mcg (1,000 Units) Tablet PO 05/21/23 08:59 50 mcg DAILY [facility] Administration A&P - Hospitalist Assessment/Plan (1) Osteomyelitis of right foot: (2) Ulcer of right foot with necrosis of bone: (3) Diabetic foot ulcer with osteomyelitis: (4) Hypertensive kidney disease with chronic kidney disease stage V: Plan S/p right foot fourth digit amputation and revision of fifth metatarsal amputation with I&D to the right foot Had 3 moderately loose bowel movements since morning but denies any other GI complaints. Stool for C. difficile ordered and has not been collected yet Patient is hemodynamically stable and is afebrile, saturating 96% on room air Hemoglobin 8, will continue to monitor Kidney functions at baseline, nephrology following Had PICC line on Wednesday, IV antibiotics ordered per ID however could not be arranged because of weekend. Continue IV antibiotics DVT prophylaxis CODE STATUS full code Anticipate discharge tomorrow once IV antibiotics arranged at home Documented By: Salvador Alonso MD 05/24/22 1210 Signed By: <Electronically signed by Salvador Alonso MD> 05/24/[address] [facility] Work Phone: Progress note Author Cristobal Butts [facility] May 24, 2022 12:26pm Note Date/Time May 24, 2022 12:2 6pm [facility] [address] [place] [address] Nephrology Progress Note Signed Patient: Gopal Yates Jr MR#: [id number] : 1965 Acct:[id number] Age/Sex: 56 / M Adm Date: 3 Loc: Room: [address] [place] [address] Type: ADM IN Attending Dr: Salvador Alonso MD Copies to: ~ Date of Service: 05/24/2022 Subjective Subjective Narrative: This is 56-year-old male patient with a past medical history of chronic kidney disease stage V from diabetic and hypertensive nephropathy follows with me in renal office. Coronary artery disease with history of myocardial infarction, heart failure with reduced ejection fraction, hyperlipidemia, insulin-dependent diabetes mellitus and hypothyroidism. Patient was referred to the hospital by his podiatric physician for worsening right lateral foot ulcer. Patient had recent partial fifth ray amputation of his right foot. Patient was discharged to finish antibiotics. Foot MRI from yesterday showed edema in the head of the second metatarsal as well as the proximal and middle phalanx of the fourth digitsuspicious for osteomyelitis. Edema is also noted at the fourth transmetatarsaljunction suspicious for osteomyelitis. There is also marrow edema affecting thehead of the third metatarsal as well as the proximal phalanx of the third digit suspicious for osteomyelitis. There is evidence of ulceration along the lateralsoft tissues of the right foot with subcutaneous emphysema. There is a fluid collection along the interspace between the heads of the third and the fourth metatarsal suspicious for abscess formation. There is diffuse soft tissue swelling consistent with cellulitis. Patient is scheduled for OR today at 5:30 for possible more amputation with I&D. Currently on vancomycin IV. Renal team is consulted for CKD management. Last office visit with me was March 2022 when he was referred to vascular surgeon for PD catheter placement which was supposed to be done next week. Patient has been following with hematology clinic here in [facility] for CAROL injection. Patient missed her last appointment. Hemoglobin this morning 7.7 g deciliter. Kidney function remains at baseline with today serum creatinine 5.2 mmol/L and GFR 11 mm/min. BUN 72. Potassium 4.0. Serum bicarb 20 Interval history: Patient was seen and examined in his room. Patient had right fourth toe amputated with I&D of right foot abscess done May 22. Patient now has right foot wound VAC Still on antibiotics vancomycin and Zosyn. Waiting on OR culture to finalize antibiotics. Patient denied nausea vomiting. No abdominal pain. No chest pain. No shortness of breath. No diarrhea. No cough. No fever Exam Physical Exam Vital Signs: Temp Pulse Resp BP Pulse Ox O2 Del Method 97.9 F 56 L 16 137/71 96 Room Air 05/24/22 07:38 05/24/22 07:38 05/24/22 07:38 05/24/22 07:38 05/24/22 07:38 05/24/22 08:00 Narrative: General: No acute distress Head :atraumatic normocephalic Eyes: PERRLA. Significant pallor Neck: no JVD no bruit. Heart: S1-S2. RRR Respiratory: Clear to auscultation. No wheezing. No crackles Abdomen: Soft, positive bowel sounds,no tenderness. Neurology: Awake alert oriented x3. No focal deficits Extremity. No cyanosis. Trace edema of right lower extremity. Right foot is wrapped. Wound VAC in place Skin: No skin rash Objective Intake and Output I&O: Intake & Output 05/21/22 05/22/22 05/23/22 05/24/22 23:59 23:59 23:59 23:59 Intake Total 900 / 900 1840 / 1840 2460 / 2460 450 / 450 Output Total 901 / 901 800 / 800 2470 / 2470 800 / 800 Balance -1 / -1 1040 / 1040 -10 / -10 -350 / -350 Weight 84.4 kg 84.6 kg 85.2 kg 86 kg Meds and Allergies Meds: Active Medications Acetaminophen (Acetaminophen 325 Mg Tablet) 650 mg PO Q6H PRN PRN Reason: Pain Scale 1 - 3 or fever Stop: 05/20/23 13:39 Last Admin: 05/22/22 06:05 Dose: 650 mg Bumetanide (Bumetanide 2 Mg Tablet) 2 mg PO DAILY [facility] Stop: 05/21/23 08:59 Last Admin: 05/24/22 08:56 Dose: 2 mg Carvedilol (Carvedilol 12.5 Mg Tablet) 37.5 mg PO BID.WITH.MEALS [facility] Stop: 05/20/23 16:59 Last Admin: 05/24/22 08:56 Dose: 37.5 mg Cyproheptadine HCl (Cyproheptadine 4 Mg Tablet) 4 mg PO BID [facility] Stop: 05/23/23 20:59 Last Admin: 05/24/22 08:55 Dose: 4 mg Ezetimibe (Ezetimibe 10 Mg Tablet) 10 mg PO DAILY [facility] Stop: 05/21/23 08:59 Last Admin: 05/24/22 08:56 Dose: 10 mg Hydralazine HCl (Hydralazine 50 Mg Tablet) 50 mg PO TID [facility] Stop: 05/20/23 13:59 Last Admin: 05/24/22 08:56 Dose: 50 mg Piperacillin Sod/Tazobactam Sod (Zosyn 2.25gm) 2.25 gm in 100 mls @ 200 mls/hr IV Q6H [facility] Last Admin: 05/24/22 11:49 Dose: 200 mls/hr Insulin Glargine (Insulin Glargine 300 Units/3 Ml Insuln.Pen) 16 units SUBCUT QAM [facility] Stop: 05/21/23 08:59 Last Admin: 05/24/22 08:56 Dose: 16 units Isosorbide Dinitrate (Isosorbide Dinitrate 10 Mg Tablet) 10 mg PO TID [facility] Stop: 05/20/23 13:59 Last Admin: 05/24/22 08:55 Dose: 10 mg Levothyroxine Sodium (Levothyroxine 100 Mcg Tablet) 100 mcg PO DAILY@0630 [facility] Stop: 05/21/23 06:29 Last Admin: 05/24/22 05:44 Dose: 100 mcg Liothyronine Sodium (Liothyronine 5 Mcg Tablet) 10 mcg PO DAILY [facility] Stop: 05/21/23 08:59 Last Admin: 05/24/22 08:56 Dose: 10 mcg Multivitamins (Multivitamin 1 Tab Tablet) 1 tab PO DAILY [facility] Stop: 05/21/23 08:59 Last Admin: 05/24/22 08:56 Dose: 1 tab Nifedipine (Nifedipine Er.24hr 30 Mg Tab.Er.24) 30 mg PO BID [facility] Stop: 05/20/23 20:59 Last Admin: 05/24/22 08:55 Dose: 30 mg Ondansetron HCl (Ondansetron 4 Mg/2 Ml Vial) 4 mg IV-PUSH Q8H PRN PRN Reason: Nausea And Vomiting Stop: 05/20/23 13:39 Oxycodone HCl (Oxycodone Ir 5 Mg Tablet) 5 mg PO Q6H PRN PRN Reason: Pain Scale 4 - 7 Pantoprazole Sodium (Pantoprazole 40 Mg Tablet.Dr) 40 mg PO BID [facility] Stop: 05/20/23 20:59 Last Admin: 05/24/22 08:56 Dose: 40 mg Potassium Chloride (Potassium Chloride Er 20 Meq Tab.Er.Prt) 40 meq PO DAILY PRN PRN Reason: Hypokalemia Stop: 05/20/23 13:39 Sodium Bicarbonate (Sodium Bicarbonate 650 Mg Tablet) 1,300 mg PO BID [facility] Stop: 05/20/23 20:59 Last Admin: 05/24/22 08:56 Dose: 1,300 mg Sodium Chloride (Sodium Chloride 0.9 % 10 Ml Syringe) 0 ml IV-PUSH PRN PRN PRN Reason: Flush Stop: 05/20/23 10:09 Last Admin: 05/24/22 05:44 Dose: 10 ml Vancomycin HCl (Vancomycin - Pharmacy Dosing 1 Each Miscell) 1 each IV ONCE PRN; Protocol PRN Reason: ZZ.Pharmacy Consult Vitamin D (Cholecalciferol 25 Mcg (1,000 Units) Tablet) 50 mcg PO DAILY [facility] Stop: 05/21/23 08:59 Last Admin: 05/24/22 08:56 Dose: 50 mcg Allergies Sulfa (Sulfonamide Antibiotics) Allergy (Verified 05/20/22 10:10) Hives Results Labs 05/24/22 05:45 05/24/22 05:45 Labs: 05/24/22 05:45 BUN 72 H Creatinine 4.62 H Phosphorus 4.3 Albumin 1.6 L Radiology Impressions Impressions - last 24 hours: Any impression(s) listed above is documentation that was entered by the reading physician into a diagnostic report(s) for Gopal Yates Jr. I have reviewed the report(s) and am incorporating any findings in the treatment plan of this patient where applicable. A&P - Nephrology Assessment/Plan (1) CKD (chronic kidney disease) stage 5, GFR less than 15 ml/min: Plan: Patient has advanced CKD from diabetic nephropathy. Patient follows with me in the renal office. Last visit was March 2022 when he was referred to general surgery for PD catheter placement which supposed to be done next week. Kidney function remains at baseline. There is no urgent need to start hemodialysis. Iwill continue to monitor renal function panel while he is on antibiotics. Please keep vancomycin level between 15 and 20 to avoid tubular injury. Avoid NSAIDs for pain control. Avoid IV contrast. Continue oral sodium bicarb. Check renal function panel in the morning if he remains inpatient (2) Diabetes mellitus with diabetic neuropathy: Plan: Patient has insulin-dependent diabetes mellitus. Currently he is on insulin glargine 16 units daily. I do not see insulin covering the meals. I will deferdiabetes measurement to the primary service (3) Hypertensive kidney disease with chronic kidney disease stage V: Plan: Blood pressure and volume are well controlled. Patient is on Bumex, Coreg, hydralazine, nifedipine. I will continue to monitor blood pressure and adjust medications as needed (4) Anemia of renal disease: Plan: Patient has anemia from CKD. Patient has been following with hematology clinic here in [facility] for CAROL injection . Patient missed the last appointment. Patient received 1 unit of RBC May 21. Patient also was given 1 dose of Zdyscy44,000 units May 21 . Hemoglobin is 8 mg deciliter this morning. No need for RBC transfusion. Continue to monitor H&H (5) Osteomyelitis of right foot: Plan: Right foot MRI findings as as in HPI. Patient currently covered by vancomycin and Zosyn IV. Status post amputation of the right fourth toe with I&D of right foot abscess with wound VAC placement during this admission. Podiatry service is following Documented By: Cristobal Butts MD 05/24/221224 Signed By: <Electronically signed by Cristobal Butts MD> 05/24/22 1226 [facility] Work Phone: Progress note Author Yvonne Barboza [facility] May 25, 2022 11:28am Note Date/Time May 25, 2022 10:3 6am [facility] [address] [place] [address] Nephrology Progress Note Signed Patient: Gopal Yates Jr MR#: [id number] : 1965 Acct:[id number] Age/Sex: 56 / M Adm Date: 3 Loc: Room: [address] [place] [address] Type: ADM IN Attending Dr: Scotty Kahn DO Copies to: ~ Date of Service: 05/25/2022 Subjective Subjective Narrative: This is 56-year-old male patient with a past medical history of chronic kidney disease stage V from diabetic and hypertensive nephropathy follows with me in renal office. Coronary artery disease with history of myocardial infarction, heart failure with reduced ejection fraction, hyperlipidemia, insulin-dependent diabetes mellitus and hypothyroidism. Patient was referred to the hospital by his podiatric physician for worsening right lateral foot ulcer. Patient had recent partial fifth ray amputation of his right foot. Patient was discharged to finish antibiotics. Foot MRI from yesterday showed edema in the head of the second metatarsal as well as the proximal and middle phalanx of the fourth digitsuspicious for osteomyelitis. Edema is also noted at the fourth transmetatarsaljunction suspicious for osteomyelitis. There is also marrow edema affecting thehead of the third metatarsal as well as the proximal phalanx of the third digit suspicious for osteomyelitis. There is evidence of ulceration along the lateralsoft tissues of the right foot with subcutaneous emphysema. There is a fluid collection along the interspace between the heads of the third and the fourth metatarsal suspicious for abscess formation. There is diffuse soft tissue swelling consistent with cellulitis. Patient is scheduled for OR today at 5:30 for possible more amputation with I&D. Currently on vancomycin IV. Renal team is consulted for CKD management. Last office visit with me was March 2022 when he was referred to vascular surgeon for PD catheter placement which was supposed to be done next week. Patient has been following with hematology clinic here in [facility] for CAROL injection. Patient missed her last appointment. Hemoglobin this morning 7.7 g deciliter. Kidney function remains at baseline with today serum creatinine 5.2 mmol/L and GFR 11 mm/min. BUN 72. Potassium 4.0. Serum bicarb 20 Interval history: Patient was seen and examined in his room. He is feeling better denies any chest pain palpitation cough nausea Moiduddin shortness of breath. He reported that he likely will be discharged home today. He is scheduled to see Dr. Cooper for PD catheter. 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: Awake,Alert, 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 Musculoskeletal: No joint swelling or limitation of movement Psychiatric: Cooperative, normal mood and affect Objective Intake and Output I&O: Intake & Output 03/03/23 05/23/22 05/24/22 05/25/22 23:59 23:59 23:59 23:59 Intake Total 1840 / 1840 2460 / 2460 1650 / 1650 340 / 340 Output Total 800 / 800 2470 / 2470 1225 / 1225 550 / 550 Balance 1040 / 1040 -10 / -10 425 / 425 -210 / -210 Weight 84.6 kg 85.2 kg 86 kg 87 kg Meds and Allergies Meds: Active Medications Acetaminophen (Acetaminophen 325 Mg Tablet) 650 mg PO Q6H PRN PRN Reason: Pain Scale 1 - 3 or fever Stop: 05/20/23 13:39 Last Admin: 05/22/22 06:05 Dose: 650 mg Bumetanide (Bumetanide 2 Mg Tablet) 2 mg PO DAILY [facility] Stop: 05/21/23 08:59 Last Admin: 05/25/22 08:30 Dose: 2 mg Carvedilol (Carvedilol 12.5 Mg Tablet) 37.5 mg PO BID.WITH.MEALS [facility] Stop: 05/20/23 16:59 Last Admin: 05/25/22 08:30 Dose: 37.5 mg Cyproheptadine HCl (Cyproheptadine 4 Mg Tablet) 4 mg PO BID [facility] Stop: 05/23/23 20:59 Last Admin: 05/25/22 08:30 Dose: 4 mg Ezetimibe (Ezetimibe 10 Mg Tablet) 10 mg PO DAILY [facility] Stop: 05/21/23 08:59 Last Admin: 05/25/22 08:30 Dose: 10 mg Hydralazine HCl (Hydralazine 50 Mg Tablet) 50 mg PO TID [facility] Stop: 05/20/23 13:59 Last Admin: 05/25/22 08:30 Dose: 50 mg Piperacillin Sod/Tazobactam Sod (Zosyn 2.25gm) 2.25 gm in 100 mls @ 200 mls/hr IV Q6H [facility] Last Admin: 05/25/22 05:05 Dose: 200 mls/hr Insulin Glargine (Insulin Glargine 300 Units/3 Ml Insuln.Pen) 16 units SUBCUT QAM [facility] Stop: 05/21/23 08:59 Last Admin: 05/25/22 08:31 Dose: 16 units Isosorbide Dinitrate (Isosorbide Dinitrate 10 Mg Tablet) 10 mg PO TID [facility] Stop: 05/20/23 13:59 Last Admin: 05/25/22 08:30 Dose: 10 mg Levothyroxine Sodium (Levothyroxine 100 Mcg Tablet) 100 mcg PO DAILY@0630 [facility] Stop: 05/21/23 06:29 Last Admin: 05/25/22 05:34 Dose: Not Given Liothyronine Sodium (Liothyronine 5 Mcg Tablet) 10 mcg PO DAILY [facility] Stop: 05/21/23 08:59 Last Admin: 05/25/22 08:31 Dose: 10 mcg Multivitamins (Multivitamin 1 Tab Tablet) 1 tab PO DAILY [facility] Stop: 05/21/23 08:59 Last Admin: 05/25/22 08:31 Dose: 1 tab Nifedipine (Nifedipine Er.24hr 30 Mg Tab.Er.24) 30 mg PO BID [facility] Stop: 05/20/23 20:59 Last Admin: 05/25/22 08:30 Dose: 30 mg Ondansetron HCl (Ondansetron 4 Mg/2 Ml Vial) 4 mg IV-PUSH Q8H PRN PRN Reason: Nausea And Vomiting Stop: 05/20/23 13:39 Oxycodone HCl (Oxycodone Ir 5 Mg Tablet) 5 mg PO Q6H PRN PRN Reason: Pain Scale 4 - 7 Pantoprazole Sodium (Pantoprazole 40 Mg Tablet.Dr) 40 mg PO BID [facility] Stop: 05/20/23 20:59 Last Admin: 05/25/22 08:31 Dose: 40 mg Potassium Chloride (Potassium Chloride Er 20 Meq Tab.Er.Prt) 40 meq PO DAILY PRN PRN Reason: Hypokalemia Stop: 05/20/23 13:39 Sodium Bicarbonate (Sodium Bicarbonate 650 Mg Tablet) 1,300 mg PO BID [facility] Stop: 05/20/23 20:59 Last Admin: 05/25/22 08:30 Dose: 1,300 mg Sodium Chloride (Sodium Chloride 0.9 % 10 Ml Syringe) 0 ml IV-PUSH PRN PRN PRN Reason: Flush Stop: 05/20/23 10:09 Last Admin: 05/25/22 05:06 Dose: 10 ml Vancomycin HCl (Vancomycin - Pharmacy Dosing 1 Each Miscell) 1 each IV ONCE PRN; Protocol PRN Reason: ALBERTA.Pharmacy Consult Vitamin D (Cholecalciferol 25 Mcg (1,000 Units) Tablet) 50 mcg PO DAILY [facility] Stop: 05/21/23 08:59 Last Admin: 05/25/22 08:30 Dose: 50 mcg Allergies Sulfa (Sulfonamide Antibiotics) Allergy (Verified 05/20/22 10:10) Hives Results Labs 05/25/22 05:10 05/25/22 05:10 Labs: 05/25/22 05:10 BUN 68 H Creatinine 4.55 H Phosphorus 4.1 Albumin 1.7 L Radiology Impressions Impressions - last 24 hours: Any impression(s) listed above is documentation that was entered by the reading physician into a diagnostic report(s) for Gopal Yates Jr. I have reviewed the report(s) and am incorporating any findings in the treatment plan of this patient where applicable. A&P - Nephrology Assessment/Plan (1) CKD (chronic kidney disease) stage 5, GFR less than 15 ml/min: Plan: Patient has advanced CKD from diabetic nephropathy. Patient follows with me in the renal office. Last visit was March 2022 when he was referred to general surgery for PD catheter placement which supposed to be done next week. Kidney function remains at baseline. There is no urgent need to start hemodialysis. I will continue to monitor renal function panel while he is on antibiotics. Please keep vancomycin level between 15 and 20 to avoid tubular injury. Avoid NSAIDs for pain control. Avoid IV contrast. Continue oral sodium bicarb. Check renal function panel in the morning if he remains inpatient (2) Diabetes mellitus with diabetic neuropathy: Plan: Patient has insulin-dependent diabetes mellitus. Currently he is on insulin glargine. Continue insulin with the target goal of blood sugars 100 to 150 g/dL. (3) Hypertensive kidney disease with chronic kidney disease stage V: Plan: Blood pressure and volume are well controlled. Patient is on Bumex, Coreg, hydralazine, nifedipine. I will continue to monitor blood pressure and adjust medications as needed (4) Anemia of renal disease: Plan: Patient has anemia from CKD. Patient has been following with hematology clinic here in [facility] for CAROL injection . Patient missed the last appointment. Patient received 1 unit of RBC May 21. Patient also was given 1 dose of Soueub61,000 units May 21 . No need for RBC transfusion. Continue to monitor H&H (5) Osteomyelitis of right foot: Plan: Right foot MRI findings as as in HPI. Patient currently covered by vancomycin and Zosyn IV. Status post amputation of the right fourth toe with I&D of right foot abscess with wound VAC placement during this admission. Podiatry service is following Documented By: Yvonne Barboza MD 05/25/22 1035 Signed By: <Electronically signed by Yvonne Barboza MD> 05/25/[address] [facility] Work Phone: Progress note Author Ashutosh Thomas [facility] May 25, 2022 11:21am Note Date/Time May 25, 2022 11:2 2am [facility] [address] [place] [address] Infect. Disease Progress Note Signed Patient: Gopal Yates Jr MR#: [id number] : 1965 Acct:[id number] Age/Sex: 56 / M Adm Date: 3 Loc: Room: [address] [place] [address] Type: ADM IN Attending Dr: Scotty Kahn DO Copies to: ~ Date of Service: 05/25/2022 Subjective Interval history: Patient is doing well. Having his right foot dressing change bugs in the room. No problems with IV antibiotics to date. Planning to go home today. Exam Physical Exam Vital Signs: Temp Pulse Resp BP Pulse Ox O2 Del Method 98.0 F 62 16 153/77 H 94 L Room Air 05/25/22 08:00 05/25/22 08:00 05/25/22 08:00 05/25/22 08:00 05/25/22 08:00 05/25/22 08:00 Const General: cooperative, healthy appearing, comfortable and no acute distress HEENT Head: normal to inspection, normocephalic and atraumatic Ears: hearing grossly normal bilaterally Eyes Visual Holden: normal visual holden by confrontation Conjunctivae: conjunctivae normal Sclera: sclerae normal EOM: EOM intact bilaterally Neck Neck: normal visual inspection, full ROM and no lymphadenopathy Chest Chest palpation & inspection: normal inspection of the chest Resp Effort & Inspection: normal respiratory effort and able to speak in complete sentences Auscultation: clear to auscultation bilaterally Cardio Rate: regular rate Rhythm: regular rhythm Heart Sounds: S1 normal and S2 normal GI Inspection: normal to inspection, no edema and non-distended Palpation: soft Skin General: no rashes or lesions noted Neuro General: patient alert, patient awake, patient oriented x3 and moves all extremities Extrem General: no clubbing, cyanosis or edema and no calf tenderness Psych Appearance: grossly normal Mental Status: mental status grossly normal Objective Labs CBC/BMP: CBC, BMP 05/25/22 05/25/22 05:10 05:10 Corrected WBC 7.7 Uncorrected WBC Count 7.7 RBC 2.90 L Hgb 7.9 L Hct 23.7 L Plt Count 191 Sodium 134 L Potassium 4.2 Chloride 104 Carbon Dioxide 21.0 L Anion Gap 13.2 BUN 68 H Creatinine 4.55 H Calcium 7.8 L Labs: 05/25/22 05:10 BUN 68 H Creatinine 4.55 H Microbiology Microbiology: Microbiology - Results from entire visit 05/21/22 18:37 Foot,Right - Ulcer Aerobic Culture - Final No Growth 2 Days 05/21/22 18:37 Foot,Right - Ulcer Anaerobic Culture - Preliminary Bacteroides fragilis 05/21/22 18:37 Foot,Right - Ulcer Gram Stain - Final 05/20/22 11:12 Blood - Left Antecubital Blood Culture - Preliminary No Growth 4 Days 05/20/22 11:00 Blood - Left Antecubital Blood Culture - Preliminary No Growth 4 Days 05/20/22 11:28 Toe,Right Fifth - Abscess Superficial Wound Culture - Final Light Normal Skin Efren 2 Days Allergies and Medications Allergies and Active Meds Allergies Sulfa (Sulfonamide Antibiotics) Allergy (Verified 05/20/22 10:10) Hives Active Medications Acetaminophen (Acetaminophen 325 Mg Tablet) 650 mg PO Q6H PRN PRN Reason: Pain Scale 1 - 3 or fever Stop: 05/20/23 13:39 Last Admin: 05/22/22 06:05 Dose: 650 mg Bumetanide (Bumetanide 2 Mg Tablet) 2 mg PO DAILY [facility] Stop: 05/21/23 08:59 Last Admin: 05/25/22 08:30 Dose: 2 mg Carvedilol (Carvedilol 12.5 Mg Tablet) 37.5 mg PO BID.WITH.MEALS [facility] Stop: 05/20/23 16:59 Last Admin: 05/25/22 08:30 Dose: 37.5 mg Cyproheptadine HCl (Cyproheptadine 4 Mg Tablet) 4 mg PO BID [facility] Stop: 05/23/23 20:59 Last Admin: 05/25/22 08:30 Dose: 4 mg Ezetimibe (Ezetimibe 10 Mg Tablet) 10 mg PO DAILY [facility] Stop: 05/21/23 08:59 Last Admin: 05/25/22 08:30 Dose: 10 mg Hydralazine HCl (Hydralazine 50 Mg Tablet) 50 mg PO TID [facility] Stop: 05/20/23 13:59 Last Admin: 05/25/22 08:30 Dose: 50 mg Piperacillin Sod/Tazobactam Sod (Zosyn 2.25gm) 2.25 gm in 100 mls @ 200 mls/hr IV Q6H [facility] Last Admin: 05/25/22 11:06 Dose: 200 mls/hr Insulin Glargine (Insulin Glargine 300 Units/3 Ml Insuln.Pen) 16 units SUBCUT QAM [facility] Stop: 05/21/23 08:59 Last Admin: 05/25/22 08:31 Dose: 16 units Isosorbide Dinitrate (Isosorbide Dinitrate 10 Mg Tablet) 10 mg PO TID [facility] Stop: 05/20/23 13:59 Last Admin: 05/25/22 08:30 Dose: 10 mg Levothyroxine Sodium (Levothyroxine 100 Mcg Tablet) 100 mcg PO DAILY@0630 [facility] Stop: 05/21/23 06:29 Last Admin: 05/25/22 05:34 Dose: Not Given Liothyronine Sodium (Liothyronine 5 Mcg Tablet) 10 mcg PO DAILY [facility] Stop: 05/21/23 08:59 Last Admin: 05/25/22 08:31 Dose: 10 mcg Multivitamins (Multivitamin 1 Tab Tablet) 1 tab PO DAILY [facility] Stop: 05/21/23 08:59 Last Admin: 05/25/22 08:31 Dose: 1 tab Nifedipine (Nifedipine Er.24hr 30 Mg Tab.Er.24) 30 mg PO BID [facility] Stop: 05/20/23 20:59 Last Admin: 05/25/22 08:30 Dose: 30 mg Ondansetron HCl (Ondansetron 4 Mg/2 Ml Vial) 4 mg IV-PUSH Q8H PRN PRN Reason: Nausea And Vomiting Stop: 05/20/23 13:39 Oxycodone HCl (Oxycodone Ir 5 Mg Tablet) 5 mg PO Q6H PRN PRN Reason: Pain Scale 4 - 7 Pantoprazole Sodium (Pantoprazole 40 Mg Tablet.) 40 mg PO BID [facility] Stop: 05/20/23 20:59 Last Admin: 05/25/22 08:31 Dose: 40 mg Potassium Chloride (Potassium Chloride Er 20 Meq Tab.Er.Prt) 40 meq PO DAILY PRN PRN Reason: Hypokalemia Stop: 05/20/23 13:39 Sodium Bicarbonate (Sodium Bicarbonate 650 Mg Tablet) 1,300 mg PO BID [facility] Stop: 05/20/23 20:59 Last Admin: 05/25/22 08:30 Dose: 1,300 mg Sodium Chloride (Sodium Chloride 0.9 % 10 Ml Syringe) 0 ml IV-PUSH PRN PRN PRN Reason: Flush Stop: 05/20/23 10:09 Last Admin: 05/25/22 05:06 Dose: 10 ml Vancomycin HCl (Vancomycin - Pharmacy Dosing 1 Each Miscell) 1 each IV ONCE PRN; Protocol PRN Reason: ZHeather.Pharmacy Consult Vitamin D (Cholecalciferol 25 Mcg (1,000 Units) Tablet) 50 mcg PO DAILY [facility] Stop: 05/21/23 08:59 Last Admin: 05/25/22 08:30 Dose: 50 mcg A&P - Infectious Disease Assessment/Plan (1) Osteomyelitis of right foot: Code(s): M86.9 - Osteomyelitis, unspecified Status: Acute (2) Diabetic foot ulcer with osteomyelitis: Code(s): E11.621 - Type 2 diabetes mellitus with foot ulcer; E11.69 - Type 2 diabetes mellitus with other specified complication; L97.509 - Non-pressure chronic ulcerof other part of unspecified foot with unspecified severity; M86.9 - Osteomyelitis, unspecified Status: Acute (3) Type 2 diabetes mellitus with diabetic chronic kidney disease: Code(s): E11.22 - Type 2 diabetes mellitus with diabetic chronic kidney disease Status: Acute (4) CKD (chronic kidney disease) stage 5, GFR less than 15 ml/min: Code(s): N18.5 - Chronic kidney disease, stage 5 Status: Acute Plan Status post surgery on his foot but per my discussion with Dr. Luis yesterday there is concerned that residual osteomyelitis may still be present and that therefore IV antibiotics will be planned for outpatient. PICC line will be ordered. Previous cultures from bone biopsy had only Bacteroides fragilis. Newculture again with Bacteroides fragilis but currently on vancomycin and Zosyn. IV ertapenem arranged for home. Okay for discharge from my standpoint Documented By: Ashutosh Thomas MD 05/25/22 1120 Signed By: <Electronically signed by MD Ashutosh Thomas> 05/25/[address] [facility] Work Phone: Summary Purpose Family History No Family History Records Found Relationship Condition Age at Onset Recorded Date/T frankie father Myocardial infarction Unknown Heart failure Unknown Not Specified Malignant neoplasm of breast Unknown Relationship Condition Age at Onset Recorded Date/T frankie father Heart failure Unknown Myocardial infarction Unknown Diabetes mellitus Unknown Not Specified Malignant neoplasm of breast Unknown Advance Directives No Advanced Directives Records Found Advance Directive Response Recorded Date/ Time Advance Directives No October 04 1:17pm Advance Directive Response Recorded Date/ Time Advance Directives No October 04 12:17pm Medications Administered Section Inactive Administered Medications - up to 3 most recent administrations Medication Order MAR Action Action Date Dose Rate Site Darbepoetin Farhat In Polysorbat 200 mcg injection (ARANESP) 200 mcg, SUBCUTANEOUS, ONCE, 1 dose, On Wed10/22/21 at 1400, Protect from light REFRIGERATE Given 10/22/2021 1:54 PM EDT 200 mcg Arm, Right Inactive Administered Medications - up to 3 most recent administrations Medication Order MAR Action Action Date Dose Rate Site Darbepoetin Farhat In Polysorbat 200 mcg injection (ARANESP) 200 mcg, SUBCUTANEOUS, ONCE, 1 dose, On Wed11/19/21 at 1400, Protect from light REFRIGERATE Given 11/19/2021 2:01 PM EDT 200 mcg Arm, Right Inactive Administered Medications - up to 3 most recent administrations Medication Order MAR Action Action Date Dose Rate Site Darbepoetin Farhat In Polysorbat 200 mcg injection (ARANESP) 200 mcg, SUBCUTANEOUS, ONCE, 1 dose, On Wed02/04/22 at 1400, Protect from light REFRIGERATE Given 02/04/2022 2:08 PM EST 200 mcg Arm, Right Inactive Administered Medications - up to 3 most recent administrations Medication Order MAR Action Action Date Dose Rate Site Darbepoetin Farhat In Polysorbat 200 mcg injection (ARANESP) 200 mcg, SUBCUTANEOUS, ONCE, 1 dose, On Wed02/18/22 at 1430, Protect from light REFRIGERATE Given 02/18/2022 2:22 PM EST 200 mcg Arm, Right Inactive Administered Medications - up to 3 most recent administrations Medication Order MAR Action Action Date Dose Rate Site Darbepoetin Farhat In Polysorbat 200 mcg injection (ARANESP) 200 mcg, SUBCUTANEOUS, ONCE, 1 dose, On Wed03/18/22 at 1500, Protect from light REFRIGERATE Given 03/18/2022 2:42 PM EST 200 mcg Arm, Right Inactive Administered Medications - up to 3 most recent administrations Medication Order MAR Action Action Date Dose Rate Site Darbepoetin Farhat In Polysorbat 200 mcg injection (ARANESP) 200 mcg, SUBCUTANEOUS, ONCE, 1 dose, On [place] 04/16/22 at 1530, Protect from light REFRIGERATE Given 04/16/2022 3:15 PM EST 200 mcg Arm, Right Chief Complaint and Reason for Visit Chief Complaint D63.1 Anemia of ronald l dz. Chief Complaint R foot problem, sent by Reason for Visit Osteomyelitis Chief Complaint R foot problem, sent by Reason for Visit Anemia of renal dise 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 CKD (chronic kidney disease) stage 5, GFR less than 15 ml/min Diabetic foot ulcer with osteomyelitis Hypertensive kidney disease with chronic kidney disease stage V Metabolic acidosis Osteomyelitis Osteomyelitis of right foot 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 CKD (chronic kidney disease) stage 5, GFR less than 15 ml/min Diabetic foot ulcer with osteomyelitis Hypertensive kidney disease with chronic kidney disease stage V Osteomyelitis of right foot Ulcer of right foot with necrosis of bone Chief Complaint R foot problem, sent by open wounds Reason for Visit Anemia of renal dise [facility] CKD (chronic kidney disease) stage 5, GFR less than 15 ml/min Diabetic foot ulcer with osteomyelitis Hypertensive kidney disease with chronic kidney disease stage V Metabolic acidosis Osteomyelitis Osteomyelitis of right foot 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 Anemia of renal disease CKD (chronic kidney disease) stage 5, GFR less than 15 ml/min Diabetes mellitus with diabetic neuropathy Diabetic foot ulcer with osteomyelitis Hypertensive kidney disease with chronic kidney disease stage V Osteomyelitis of right foot Surgical wound present 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 Chief Complaint R foot problem, sent by dr. Jar[place]illo51[place] open wounds Right foot wound ESRD Reason for Visit Anemia of renal dise [facility] CKD (chronic kidney disease) stage 5, GFR less than 15 ml/min Diabetic foot ulcer with osteomyelitis Hypertensive kidney disease with chronic kidney disease stage V Metabolic acidosis Osteomyelitis Osteomyelitis of right foot 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 Anemia of renal disease CKD (chronic kidney disease) stage 5, GFR less than 15 ml/min Diabetes mellitus with diabetic neuropathy Diabetic foot ulcer with osteomyelitis Hypertensive kidney disease with chronic kidney disease stage V Osteomyelitis of right foot Surgical wound present 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 Chief Complaint R foot problem, sent by dr. Jaramillo51[place] open wounds ESRD Right foot wound Reason for Visit Anemia of renal dise [facility] CKD (chronic kidney disease) stage 5, GFR less than 15 ml/min Diabetic foot ulcer with osteomyelitis Hypertensive kidney disease with chronic kidney disease stage V Metabolic acidosis Osteomyelitis Osteomyelitis of right foot 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 Anemia of renal disease CKD (chronic kidney disease) stage 5, GFR less than 15 ml/min Diabetes mellitus with diabetic neuropathy Diabetic foot ulcer with osteomyelitis Hypertensive kidney disease with chronic kidney disease stage V Osteomyelitis of right foot Surgical wound present 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 Chief Complaint R foot problem, sent by dr. Jaramillo516 open wounds ESRD Right foot wound fever Reason for Visit Anemia of renal dise [facility] CKD (chronic kidney disease) stage 5, GFR less than 15 ml/min Diabetic foot ulcer with osteomyelitis Hypertensive kidney disease with chronic kidney disease stage V Metabolic acidosis Osteomyelitis Osteomyelitis of right foot 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 Anemia of renal disease CKD (chronic kidney disease) stage 5, GFR less than 15 ml/min Diabetes mellitus with diabetic neuropathy Diabetic foot ulcer with osteomyelitis Hypertensive kidney disease with chronic kidney disease stage V Osteomyelitis of right foot Surgical wound present 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 MARTHA (acute kidney injury) Anemia CKD (chronic kidney disease) stage 5, GFR less than 15 ml/min Fever History of fever Osteomyelitis Chief Complaint R foot problem, sent by L97.516 open wounds ESRD L97.516 fever Right foot wound Reason for Visit Anemia of renal dise ase CKD (chronic kidney disease) stage 5, GFR less than 15 ml/min Diabetic foot ulcer with osteomyelitis Hypertensive kidney disease with chronic kidney disease stage V Metabolic acidosis Osteomyelitis Osteomyelitis of right foot 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 Anemia of renal disease CKD (chronic kidney disease) stage 5, GFR less than 15 ml/min Diabetes mellitus with diabetic neuropathy Diabetic foot ulcer with osteomyelitis Hypertensive kidney disease with chronic kidney disease stage V Osteomyelitis of right foot Surgical wound present 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 MARTHA (acute kidney injury) Anemia CKD (chronic kidney disease) stage 5, GFR less than 15 ml/min Diabetes mellitus with foot ulcer Fever History of fever Hypertensive kidney disease with chronic kidney disease stage V Metabolic acidosis Osteomyelitis Osteomyelitis of right foot Receiving intravenous antibiotic treatment at home Recent surgical procedure on lower extremity Subjective fever Type 2 diabetes mellitus with diabetic chronic kidney disease Ulcer of right foot Reason for Referral Reason *FU 01/06 eval and treat Diagnosis 1 Phlegm in throat (R0 9.89) Referral Organization [facility] Referring Provider First Name Ford Referring Provider Last Name Flaco Referring Provider Specialty Gastroenter ology Referred Organization Unknown Facility Referred Provider Ulysses Nuno Referred Provider Specialty Pulmonary Di seases Referral Priority Routine General Notes Jeny Smiley 1 10:15:35 AM > Received and sent p2p. Additional Source Comments (unrecognized sect ion and content) No Status Records FoundNo Status Records FoundNo Status Records FoundNo Status Records FoundNo Status Records FoundNo Status Records FoundNo Status Records Found INFORMATION SOURCE (unrecogn ized section and content) DATE CREATED AUTHOR 05/26/2021 [facility] DATE CREATED AUTHOR AUTHOR'S ORGANIZ ATION 06/02/2022 [facility] DATE CREATED AUTHOR AUTHOR'S ORGANIZ ATION 07/14/2022 [facility] DATE CREATED AUTHOR AUTHOR'S ORGANIZ ATION 03/04/2023 [facility] DATE CREATED AUTHOR AUTHOR'S ORGANIZ ATION 05/12/2023 [facility] DATE CREATED AUTHOR AUTHOR'S ORGANIZ ATION 07/29/2023 [facility] DATE CREATED AUTHOR AUTHOR'S ORGANIZ ATION 09/02/2023 Angel Mahmood [facility] REASON FOR VISIT (unrecogniz ed section and content) Reason Comments Established Patient Specialty Diagnoses / Procedures Referred By Contac t Referred To Contact Diagnoses Anemia due to stage 3b chronic kidney disease (HCC) Procedures DARBEPOETIN FARHAT, NON-ESRD Conrad Rojas MD [address] [place] [address] [place] [address] Chito Treat [address] [place] [address] Referral ID Status Reason Start Date Expiration Date V isits Requested Visits Authorized [id number] Authorized 10/18/2021 12/01/2021 4 4 Reason Comments Chronic Kidney Disease 2 month follow up Reason Comments Infusions Reason Comments Anemia 2 week follow up Reason Comments Anemia 4 week follow up Referral ID Status Reason Start Date Expiration Date V isits Requested Visits Authorized [id number] Authorized 10/18/2021 03/02/2022 7 7 Referral ID Status Reason Start Date Expiration Date V isits Requested Visits Authorized [id number] Pending Review 10/18/2021 04/16/2022 11 11 Referral ID Status Reason Start Date Expiration Date V isits Requested Visits Authorized [id number] Authorized 10/18/2021 04/16/2022 11 11 Referral ID Status Reason Start Date Expiration Date V isits Requested Visits Authorized [id number] Authorized 10/18/2021 05/31/2022 15 15 Reason Comments Anemia Follow up Reason Comments Patient Update Appointment Source Comments (unrecognize d section and content) In the event this informatio n is protected by the Federal Confidentiality of Alcohol and Drug Abuse Patient Records regulations: The Federal rules restrict any use of the information to criminally investigate or prosecute any alcohol or drug abuse patient.[facility] the event this information is protected by the Federal Confidentiality of Alcohol and Drug Abuse Patient Records regulations: The Federal rules restrict any use of the information to criminally investigate or prosecute any alcohol or drug abuse patient.[facility] Center[facility] the event this information is protected by the Federal Confidentiality of Alcohol and Drug Abuse Patient Records regulations: The Federal rules restrict any use of the information to criminally investigate or prosecute any alcohol or drug abuse patient.[facility] the event this information is protected by the Federal Confidentiality of Alcohol and Drug Abuse Patient Records regulations: The Federal rules restrict any use of the information to criminally investigate or prosecute any alcohol or drug abuse patient.[facility] Center[facility] the event this information is protected by the Federal Confidentiality of Alcohol and Drug Abuse Patient Records regulations: The Federal rules restrict any use of the information to criminally investigate or prosecute any alcohol or drug abuse patient.[facility] CenterIn the event this information is protected by the Federal Confidentiality of Alcohol and Drug Abuse Patient Records regulations: The Federal rules restrict any use of the information to criminally investigate or prosecute any alcohol or drug abuse patient.[facility] Center[facility] the event this information is protected by the Federal Confidentiality of Alcohol and Drug Abuse Patient Records regulations: The Federal rules restrict any use of the information to criminally investigate or prosecute any alcohol or drug abuse patient.[facility] Center[facility] the event this information is protected by the Federal Confidentiality of Alcohol and Drug Abuse Patient Records regulations: The Federal rules restrict any use of the information to criminally investigate or prosecute any alcohol or drug abuse patient.[facility] Center[facility] the event this information is protected by the Federal Confidentiality of Alcohol and Drug Abuse Patient Records regulations: The Federal rules restrict any use of the information to criminally investigate or prosecute any alcohol or drug abuse patient.[facility] Center[facility] the event this information is protected by the Federal Confidentiality of Alcohol and Drug Abuse Patient Records regulations: The Federal rules restrict any use of the information to criminally investigate or prosecute any alcohol or drug abuse patient.[facility] CenterIn the event this information is protected by the Federal Confidentiality of Alcohol and Drug Abuse Patient Records regulations: The Federal rules restrict any use of the information to criminally investigate or prosecute any alcohol or drug abuse patient.[facility] CenterIn the event this information is protected by the Federal Confidentiality of Alcohol and Drug Abuse Patient Records regulations: The Federal rules restrict any use of the information to criminally investigate or prosecute any alcohol or drug abuse patient.[facility] CenterIn the event this information is protected by the Federal Confidentiality of Alcohol and Drug Abuse Patient Records regulations: The Federal rules restrict any use of the information to criminally investigate or prosecute any alcohol or drug abuse patient.[facility] CenterIn the event this information is protected by the Federal Confidentiality of Alcohol and Drug Abuse Patient Records regulations: The Federal rules restrict any use of the information to criminally investigate or prosecute any alcohol or drug abuse patient.[facility] CenterIn the event this information is protected by the Federal Confidentiality of Alcohol and Drug Abuse Patient Records regulations: The Federal rules restrict any use of the information to criminally investigate or prosecute any alcohol or drug abuse patient.[facility] Care Teams (unrecognized sec tion and content) Team Status: Active Member Role Status Dates Douglas Juárez MD Primary Care Provider Active Team Status: Inactive Member Role Status Dates Douglas Juárez MD Primary Care Provider Active Sohan Kellogg MD Attending Provider Active Team Status: Inactive Member Role Status Dates Douglas Juárez MD Primary Care Provider Active Eddy Griggs DPM Attending Provider Active Team Status: Inactive Member Role Status Dates Douglas Juárez MD Primary Care Provider Active Gopal Larsen MD Emergency Provider Active Salvador Alonso MD Admit Provider Active Ashutosh Thomas MD Other Provider Active Cristobal Butts MD Other Provider Active ITALIA DuncanM Other Provider Active Scotty Kahn DO Attending Provider Active Team Status: Inactive Member Role Status Dates Douglas Juárez MD Primary Care Provider Active Lambert Blanc DO Emergency Provider Active Cornelio Simon MD Admit Provider, Attending Freda saba Active Ashutosh Thomas MD Other Provider Active Yvonne Barboza MD Other Provider Active Eddy Griggs , DPM Other Provider Active Sohan Kellogg MD Other Provider Active Team Status: Active Member Role Status Dates Douglas Juárez MD Primary Care Provider Active Eddy Griggs , DPM Attending Provider Active Supervisor Roving Relationship Specialty Start Date End Date Douglas Juárez MD [address] [place] [address] PCP - General Family Practice 09/29/21 Supervisor Roving Relationship Specialty Start Date End Date Douglas Juárez MD [address] [place] [id number] PCP - General Family Practice 09/29/21 Supervisor Roving Relationship Specialty Start Date End Date Douglas Juárez MD [address] [place] [id number] PCP - General Family Practice 09/29/21 Supervisor Roving Relationship Specialty Start Date End Date Douglas Juárez MD [address] [place] [id number] PCP - General Family Practice 09/29/21 Supervisor Roving Relationship Specialty Start Date End Date Douglas Juárez MD [address] [place] [id number] PCP - General Family Practice 09/29/21 Team Status: Inactive Member Role Status Dates Douglas Juárez MD Primary Care Provider Active Cristobal Butts MD Attending Provider Active Supervisor Roving Relationship Specialty Start Date End Date Douglas Juárez MD [address] [place] [id number] PCP - General Family Practice 09/29/21 Supervisor Roving Relationship Specialty Start Date End Date Douglas Juárez MD [address] [place] [address] PCP - General Family Medicine 09/29/21 Supervisor Roving Relationship Specialty Start Date End Date Douglas Juárez MD [address] [place] [id number] PCP - General Family Medicine 09/29/21 Supervisor Roving Relationship Specialty Start Date End Date Douglas Juárez MD [address] [place] [id number] PCP - General Family Medicine 09/29/21 Supervisor Roving Relationship Specialty Start Date End Date Douglas Juárez MD [address] [place] [id number] PCP - General Family Medicine 09/29/21 Supervisor Roving Relationship Specialty Start Date End Date Douglas Juárez MD [address] [place] [address] PCP - General Family Medicine 09/29/21 Supervisor Roving Relationship Specialty Start Date End Date Douglas Juárez MD [address] [place] [id number] PCP - General Family Medicine 09/29/21 Team Status: Active Member Role Status Dates Douglas Juárez MD Primary Care Provider Active Lambert Blanc DO Emergency Provider Active Cornelio Simon MD Admit Provider, Attending Freda saba Active Team Status: Active Member Role Status Dates Douglas Juárez MD Primary Care Provider Active Gopal Larsen MD Emergency Provider Active Salvador Alonso MD Admit Provider, Attending Provider A ctabiodun Thomas MD Other Provider Active Cristobal Butts MD Other Provider Active Primo Luis DPM Other Provider Active Supervisor Roving Relationship Specialty Start Date End Date Douglas Juárez MD PCP - General Family Medicine 09/29/21 Team Status: Active Member Role Status Dates Douglas Juárez MD Primary Care Provider Active Gopal Larsen MD Emergency Provider Active Caleb Farrar MD Admit Provider, Attending Provi nba Active Team Status: Inactive Member Role Status Dates Douglas Juárez MD Primary Care Provider Active Gopal Larsen MD Emergency Provider Active Caleb Farrar MD Admit Provider Active Ashutosh Thomas MD Other Provider Active Cristobal Butts MD Other Provider Active Eddy Griggs DPM Other Provider Active Vikash Pope DO Attending Provider Active Goals (unrecognized section and content) Goals may be documented in a n alternate section FOR RECORDS PERTAINING TO PATIENTS WHO ARE OR HAVE BEEN ENROLLED IN A CHEMICAL DEPENDENCY/SUBSTANCEABUSE PROGRAM, SOME INFORMATION MAY BE OMITTED. This clinical summary was aggregated from multiple sources. Caution should be exercised in using it in the provision of clinical care. This summary normalizes information from multiple sources, and as a consequence, information in this document may materially change the coding, format and clinical context of patient data. In addition, data may be omitted in some cases. CLINICAL DECISIONS SHOULD BE BASED ON THE PRIMARY CLINICAL RECORDS. [employer] provides no warranty or guarantee of the accuracy or completeness of information in this document.
[2023-09-08 09:38] LABS: Basophils Percent Auto 0.2 % (0.2-2.0); Eosinophils Absolute Auto 0.3 10^3/uL (0.0-0.7); Eosinophils Percent Auto 3.6 % (0.9-7.0); Hematocrit 25.1 % (42.0-54.0); Hemoglobin 8.4 g/dL (14.0-18.0); Immature Granulocytes Abs Auto 0.03 10^3/uL (0.00-0.03); Immature Granulocytes Pct Auto 0.4 % (0.0-0.5); Lymphocytes Absolute Auto 0.9 10^3/uL (1.2-3.8); Lymphocytes Percent Auto 11.4 % (20.5-60.0); Mean Corpuscular HGB Conc 33.5 g/dL (29.9-35.2); Mean Corpuscular Volume 92.6 fL (80.0-94.0); Mean Platelet Volume 9.4 fL (9.5-13.5); Monocytes Absolute Auto 0.6 10^3/uL (0.3-0.8); Monocytes Percent Auto 7.4 % (1.7-12.0); Neutrophils Absolute Auto 6.4 10^3/uL (1.4-6.5); Platelet Count 167 10^3/uL (150-450); Red Blood Count 2.71 10^6/uL (4.70-6.10); Red Cell Distribution Width 14.7 % (11.0-15.0); White Blood Count 8.3 10^3/uL (4.0-11.0)
[2023-09-08 09:44] LABS: Estimated Average Glucose 146 mg/dL; Glycohemoglobin A1C 6.7 % (4.5-6.2)
[2023-09-08 10:28] LABS: Alanine Aminotransferase 22 U/L (16-63); Albumin Globulin Ratio 0.4; Albumin Level 2.1 g/dL (3.4-5.0); Alkaline Phosphatase 115 U/L (46-116); Anion Gap 13.8; Aspartate Amino Transferase 17 U/L (15-37); BUN Creatinine Ratio 4.1; Bilirubin Total 0.5 mg/dL (0.2-1.0); Calcium 8.7 mg/dL (8.5-10.1); Carbon Dioxide 28.7 mmol/L (21.0-32.0); Chloride 101 mmol/L (98-107); Chol HDL Ratio 2.4; Cholesterol 86 mg/dL (<=200); Estimated GFR (African America 6 (>=60); Estimated GFR (Non-African Ame 5 (>=60); Globulin 5.1 g/dL; Glucose 189 mg/dL (74-106); HDL Cholesterol 36 mg/dL (40-60); Potassium 3.5 mmol/L (3.5-5.1); Sodium 140 mmol/L (136-145); Thyroid Stimulating Hormone 0.742 uIU/mL (0.358-3.740); Total Protein 7.2 g/dL (6.4-8.2); Triglycerides 100 mg/dL (<=150)
[2023-09-08 11:43] LABS: Prostate Specific Antigen Scrn 0.61 ng/mL (<=4.00)
== END 2023-09-08 09:14 | disposition home or self-care (01) ==
LOC: LAB 09:17
PROVIDERS: PCP Family Medicine; Visit Provider Family Medicine
DX: R53.83 Other fatigue (principal); I10 Essential (primary) hypertension; Z12.11 Encounter for screening for malignant neoplasm of colon; Z12.5 Encounter for screening for malignant neoplasm of prostate; E78.00 Pure hypercholesterolemia, unspecified; E11.621 Type 2 diabetes mellitus with foot ulcer
CPT/HCPCS: 36415; 80053; 80061; 83036; 84439; 84443; 85025; G0103

== ENCOUNTER 2023-09-20 13:03 | Outpatient (OUT) | payer MEDICARE, SELFPAY | END 2023-09-20 13:04 | disposition home or self-care (01) | LOC: PST 13:03 | PROVIDERS: PCP Family Medicine; Visit Provider Surgery | DX: Z01.818 Encounter for other preprocedural examination (principal); D64.9 Anemia, unspecified ==

== ENCOUNTER 2023-12-21 08:57 | Outpatient (OUT) | payer MEDICARE, SELFPAY ==
[2023-12-21 09:45] LABS: Chol HDL Ratio 2.8; Cholesterol 93 mg/dL (<=200); HDL Cholesterol 33 mg/dL (40-60); Triglycerides 187 mg/dL (<=150); VLDL CHOLESTEROL 37.4 mg/dL
== END 2023-12-21 08:58 | disposition home or self-care (01) ==
LOC: LAB 08:58
PROVIDERS: PCP Family Medicine; Visit Provider Nurse Practitioner
DX: I25.10 Atherosclerotic heart disease of native coronary artery without angina pectoris (principal)
CPT/HCPCS: 36415; 80061

== ENCOUNTER 2024-05-16 12:44 | Outpatient (OUT) | payer MEDICARE, MEDICAID, SELFPAY ==
--- NOTE | 2024-05-16 12:50 | CA_ITS ---
Patient Name: GOPAL YATES MR#: [id number] : 1965 Exam Date: 05/16/2024 Ordering Doctor: DR CASIMIRO SOSA M.D. ECHOCARDIOGRAM REPORT PROCEDURE: CA ECHO DOPPLER COMPLETE INDICATIONS: Heart failure with reduced ejection fraction, cardiac stent, hypertension, diabetes COMPARISON: None. DESCRIPTION: COMPLETE ECHOCARDIOGRAM Real-time transthoracic echocardiography with 2D, M-mode, spectral and color flow Doppler performed. QUALITY: Technical quality was good. LEFT VENTRICLE: Normal chamber size. Proximal septal hypertrophy (sigmoid septum). Mild concentric left ventricular hypertrophy. Hypokinesis of the inferolateral wall. LV EF: Lower limits of normal left ventricular ejection fraction, (50-55%). DIASTOLIC: Diastolic function is indeterminate. ATRIAL SEPTUM: Visually appears intact. LEFT ATRIUM: Mild dilatation. RIGHT ATRIUM: Mild dilatation. RIGHT VENTRICLE: Normal chamber size. Normal systolic function. TRICUSPID VALVE: Normal mobility and thickness. No stenosis with trivial regurgitation. No evidence of pulmonary hypertension. RVSP 18 mmHg MITRAL VALVE: Normal mobility and thickness. No evidence of mitral valve stenosis. Mild mitral annular calcification. Trivial mitral regurgitation. AORTIC VALVE: Normal trileaflet appearance. Thickened aortic valve. Normal leaflet mobility. No evidence of aortic valve stenosis. Trivial aortic regurgitation. AORTIC ROOT: The aortic root is moderately dilated measuring 4.1 cm. Ascending aorta is normal in size, measuring 2.9 cm. PULMONIC VALVE: Normal thickness and mobility. No stenosis. Trivial regurgitation. PERICARDIUM: No evidence of pericardial effusion. IVC: Collapses with inspirations. IVC is normal in size. PLEURA: CONCLUSION: 1. The left ventricular is normal in size and exhibits mild concentric hypertrophy with low normal systolic function. There is hypokinesis of the inferior lateral wall. Estimated LVEF is 50 to 55%. 2. Normal right ventricular size and systolic function. 3. Mild biatrial dilatation. 4. No significant valvular dysfunction. 5. Moderately dilated aortic root measuring 4.1 cm. 6. Normal right-sided pressures. Adult Echocardiography Procedure Report Left Ventricle LVEDD (3.7 - 5.6 cm): 5.20 cm LVESD (2.2 - 4.0 cm): 4.00 cm LVIVS thickness (0.6 - 1.2 cm): 1.94 cm LVPW thickness (0.5 - 1.0 cm): 0.93 cm e': 0.10 m/s E - e': 7.83 LVOT Max Gradient: 4.48 mm[Hg] LVOT Area (cm2): 1.06 m/s Peak Velocity (LVOT): 1.06 m/s Mean Velocity (LVOT): 0.75 m/s LVOT Diameter 2.66 cm Left Atrium LA Volume Index (2D A2C): 39.05 ml/m2 Left Atrium Systolic Dimension: 4.94 cm Mitral Valve MV E to A Ratio: 1.37 Mitral Valve A-Wave Peak Velocity: 0.56 m/s Mitral Valve E-Wave Peak Velocity: 0.76 m/s Right Ventricle Aorta AO Root Diam: 4.06 cm Ascending Ao Diam: 2.88 cm Aortic Valve AoV Area (Peak Roderick): 5.14 cm2, 5.14 cm2 AoV Area (VTI): 4.81 cm2, 4.81 cm2 Peak Velocity(Antegrade Flow): 1.14 m/s Peak Gradient(Antegrade Flow): 5.23 mm[Hg] Mean Velocity(Antegrade Flow): 0.82 m/s Mean Gradient(Antegrade Flow): 3.05 mm[Hg] Velocity Time Integral: 28.01 cm Tricuspid Valve Peak Velocity (Regurgitant Flow): 1.94 m/s Pulmonic Valve Mean Gradient: 2.59 mm[Hg] Mean Velocity: 0.75 m/s Peak Velocity: 1.15 m/s, 1.19 m/s Peak Gradient: 5.63 mm[Hg], 5.33 mm[Hg] Right Atrium Right Atrium Systolic Pressure: 84.77 ml, 84.77 ml Dictated by: Casimiro Sosa M.D. on 05/16/2024 at 15:55 Approved by: Casimiro Sosa M.D. on 05/16/2024 at 15:58
== END 2024-05-16 12:45 | disposition home or self-care (01) ==
LOC: CARD 12:44
PROVIDERS: PCP Family Medicine; Visit Provider Internal Medicine Interventional Cardiology
DX: I50.22 Chronic systolic (congestive) heart failure (principal)
CPT/HCPCS: 93306

== ENCOUNTER 2024-06-20 09:03 | Outpatient (OUT) | payer MEDICARE, MEDICAID, SELFPAY ==
[2024-06-20 09:45] LABS: Chol HDL Ratio 3.2; Cholesterol 117 mg/dL (<=200); HDL Cholesterol 36 mg/dL (40-60); Triglycerides 170 mg/dL (<=150)
== END 2024-06-20 09:04 | disposition home or self-care (01) ==
PROVIDERS: PCP Family Medicine; Visit Provider Internal Medicine Interventional Cardiology
DX: I25.10 Atherosclerotic heart disease of native coronary artery without angina pectoris (principal)
CPT/HCPCS: 36415; 80061

== ENCOUNTER 2024-10-17 10:09 | Outpatient (OUT) | payer MEDICARE, MEDICAID, SELFPAY ==
--- OUTSIDE RECORDS SUMMARY | 2024-10-04 10:31 | XMS_ITS | Encounter Summary ---
Author Organization [facility] Address [address] [place] [address] Care Team Providers Care District Attorney Name Role Phone Pierce Cartwright MD Primary Care Provider [phone] Gopal Stevens MD Unavailable Reason for Visit * Hospital - Outpatient (Routine) - Authorized Specialty Diagnoses / Procedures Referred By Aileen maldonado Referred To Contact Cardiology Diagnoses Pre-transplant evaluation for kidney transplant Coronary artery disease involving left main coronary artery Renal TX - Lexiscan only. Pt saw Dr. Sosa 06/21/2024 Procedures LEXISCAN STRESS MYOCARDIAL PERFUSION IMAGING CV NM NUCLEAR STRESS Jeffery Sosa MD [address] [place] [address] Phone: tel: fax: [facility] [address] [place] [address] Phone: tel: fax: Referral ID Status Reason Start Date Expiration Date V isits Requested Visits Authorized [id number] Authorized 10/04/2024 10/04/2025 1 1 Encounter Details Date Type Department Care Team (Latest Contact Info) Description 10/04/2024 10:31 AM EDT - 10/04/2024 11:59 PM EDT Hospital Encounter [facility] Heart formerly [facility] [address] [place] [address] Pre-transplant evaluation for kidney transplant; Coronary artery disease involving left main coronary artery Discharge Disposition: Home or Self Care () Social History Tobacco Use Types Packs/Day Years Used Date Smoking Tobacco: Former Cigarettes 1 12 3 - 1994 Smokeless Tobacco: Never Alcohol Use Standard Drinks/Week Comments Not Currently 0 (1 standard drink = 0.6 oz pur e alcohol) PHQ-2 Answer Date Recorded Patient Health Questionnaire-2 Score 0 08/30/2024 [place] Safety & Environment Answer Date Rec orded Fear of Current or Ex-Partner Not on file Emotionally Abused Not on file 05/13/2023 Physically Abused Not on file 05/13/2023 Sexually Abused Not on file 05/13/2023 Physically or Sexually Abused Not on file Sex and Gender Information Value Date Recorded Sex Assigned at Male 10/04/2024 10:31 AM EDT Legal Sex Male 9:41 PM EDT Gender Identity Male 10/04/2024 10:31 AM EDT Sexual Orientation Heterosexual or Straight 09/19 10:31 AM EDT documented as of this encounter Medications at Time of Discharge aspirin 81 mg EC tablet Take 1 tablet every day by oral route. calcium carbonate (Tums) 200 mg calcium (500 mg) chewable tablet Chew 1 tablet three times daily. carvedilol (Coreg) 25 mg tabletIndications: Essential hypertension TAKE 1 AND 1/2 TABLETS BY MOUTH TWICE A DAY 270 tablet 3 01/06/2024 hydrALAZINE (Apresoline) 50 mg tabletIndications: Coronary artery disease, unspecified vessel or lesion type, unspecified whether angina present, unspecified whether [place] or transplanted heart TAKE 1 TABLET (50 MG) BY MOUTH IN THE MORNING, AFTERNOON, AND AT BEDTIME. 270 tablet 3 03/11/2023 hydrOXYzine HCL (Atarax) 25 mg tablet Take 25 mg by mouth 1 (one) time. 03/21/2024 insulin aspart (NovoLOG) 100 unit/mL (3 mL) pen INJECT PER SCALEIF SUGAR IS <140 = 4U, 140-200 = 8U, OVER 200 12U (35 DAY SUPPLY) insulin glargine (Lantus) 100 unit/mL (3 mL) pen INJECT 16 UNITS SUB Q DAILY (83 DAY SUPPLY) isosorbide dinitrate (Isordil) 10 mg tabletIndications: Chest pain, unspecified type TAKE 1 TABLET (10 MG) BY MOUTH IN THE MORNING, AT NOON, AND AT BEDTIME. 270 tablet 3 01/06/2024 levothyroxine (Synthroid, Levoxyl) 100 mcg tablet Take 1 tablet by mouth in the morning. liothyronine (Cytomel) 5 mcg tablet Take 2 tablets by mouth in the morning. magnesium oxide (Mag-Ox) 400 mg (241.3 mg magnesium) tablet Take 1 tablet by mouth in the morning. 06/01/2024 montelukast (Singulair) 10 mg tablet Take 1 tablet by mouth in the morning. 06/01/2024 Nephro-Jose 0.8 mg tablet Take 1 tablet by mouth in the morning. 07/08/2022 NIFEdipine XL (Procardia XL) 30 mg 24 hr tablet Take 1 tablet by mouth in the morning. omeprazole (PriLOSEC) [address] capsule Take 1 capsule by mouth in the morning and at bedtime. potassium chloride CR (Klor-Con M20) 20 mEq ER tablet Take 20 mEq by mouth in the morning. 09/09/2023 pravastatin (Pravachol) 20 mg tabletIndications: Coronary artery disease involving [place] coronary artery of [place] heart without angina pectoris Take 1 tablet (20 mg) by mouth in the morning. 90 tablet 3 12/22/2023 sevelamer carbonate (Renvela) 800 mg tablet TAKE ONE TABLET BY MOUTH THREE TIMES A DAY WITH MEALS 07/16/2022 guaiFENesin (Mucinex) 600 mg 12 hr tablet Take 1,200 mg by mouth 1 (one) time each day. Do not crush, chew, or split. 5 documented as of this encounter Miscellaneous Notes * Care Plan - Anel Christiansen CNP - 10/04/2024 11:00 AM EDT Lexiscan stress test Patient information sheet explained, questions answered and signed. Doctor consulted--NA Treatment/Decision tree utilized- pre op renal transplant F/U appointment scheduled with Dr Sosa Pt tolerated lexiscan stess test well Denied chest pain, mild shortness of breath that resolved in recovery No acute ST or T wave changes noted, occasional PVCs EKG returned to normal in recovery Pt left stress lab asymptomatic and hemodynamically stable Full final report from shot peen operator to follow Anel Christiansen [facility] Cardiology Available 7a-3pm via [facility] [phone] documented in this encounter Plan of Treatment Upcoming Encounters Date Type Department Care Team (Late st Contact Info) Description 10/19/2024 12:30 PM EDT Hospital Encounter [facility] Heart [facility] [address] [place] [address] Jeffery Sosa MD [address] [place] [id number] Abnormal cardiovascular stress test 10/19/2024 12:30 PM EDT - 10/19/2024 1:30 PM EDT Surgery [facility] Heart [facility] [address] [place] [id number] Jeffery Sosa MD [address] [facility] [address] [place] [phone] Coronary angiography documented as of this encounter Procedures Procedure Name Priority Date/Time Associated Diagnosis Comments LEXISCAN STRESS MYOCARDIAL PERFUSION IMAGING Routine 10/04/2024 1:27 PM EDT Pre-transplant evaluation for kidney transplant Coronary artery disease involving left main coronary artery documented in this encounter Results * Lexiscan Stress Myocardial Perfusion Imaging (10/04/2024 1:27 PM EDT) Anatomical Region Laterality Modality Other 10/04/2024 12:1 9 PM EDT Narrative 10/04/2024 2:36 PM EDT 1 1 [facility] Heart Station [address] [place] [address] (fax) Lexiscan Stress Myocardial Perfusion Imaging- [facility] Name: GOPAL YATES Study Date: 10/04/2024 12:19 PM B/P: / HR: Date of : 1965 Location: [facility] Height: 76 in. Age: 59 year(s) Patient Room: Weight: 214.1 lb. Gender: Male Patient Status: OutPt BSA: 2.28 m2 Indication: Pre-op evaluation Kidney Transplant Examination: Lexiscan Stress Myocardial Perfusion Imaging Image Quality: Good Patient Consent: Procedure explained to patient, information sheet reviewed Clinical Data Smoking: Former Smoker, > 1 year Hypertension: Yes Dyslipidemia: Yes Prior PCI: Yes On Dialysis: Yes Peripheral Arterial Disease: Yes Diabetes: Yes Known CAD: Yes Physical Activity: Sedentary level of activity Chest Pain: No Dyspnea: No Department Discharge: Patient exited Heart Station asymptomatic Medication Category Medication Name Dose Comment General Medications Aspirin (Aspir) General Medications Coreg General Medications Hydralazine (Apresoline) General Medications Isosorbide Dinitrate General Medications Nifedipine General Medications Pravastatin (Pravachol) General Medications Insulin Glargine (Lantus) Conclusions Positive perfusion stress test for ischemia Abnormal myocardial perfusion with extensive soft tissue artifact Anterolateral and inferolateral predominantly fixed defect with mild reversibility consistent with infarct and mild amol-infarct ischemia Normal global left ventricular function with EF 60% No transient ischemia dilatation, TID index score is 1.09 Negative Lexiscan ECG stress test for ischemia Moderate to severe coronary calcification on attenuation correction CT scan Findings Technique IV Lexiscan Nuclear cardiac stress scan with electrocardiographic analysis and myocardial perfusion imaging was performed due to difficulty walking. 0.4 mg IV Lexiscan was given over 10-15 seconds. A One-Day SPECT Rest/Gated Stress protocol was performed. Tc99m Sestamibi with a dose of 10.7 mCi was injected intravenously 1 hour prior to rest imaging. Tc99m Sestamibi with a dose of 34.7 mCi was injected intravenously immediately after Lexiscan infusion. Computer assisted reconstruction was performed by standard Gated SPECT techniques for the generation of reconstructed horizontal, vertical long-axis, and short axis projections. Patients are given a caffeinated beverage after stress portion of test. Outpatients are also given a light snack. Stress Test Findings The patient performed isometric for 03:03 minutes by the Lexiscan protocol and achieved a heart rate of 71 bpm or 44 % of the maximal predicted heart rate. The pharmacologic stress was terminated due to Stress termination reason: Infusion complete. The resting ECG demonstrates: Normal sinus rhythm, The ECG showed 1? AV block and Resting ECG: Premature ventricular contractions. The patient had no chest pain during the study. There were no ST changes at maximal exercise. Perfusion and Wall Motion Findings The transient ischemic dilation (TID) ratio is 1.09. The gated stress calculated left ventricular ejection fraction is 60%. Perfusion after stress: The basal anterolateral and mid anterolateral wall segments show moderate reduction in the myocardium. The basal inferolateral, mid inferolateral and apical lateral wall segments show severe reduction in the myocardium. All remaining scored wall segments show normal isotope distribution. Perfusion at rest: The basal inferolateral, basal anterolateral, mid inferolateral, mid anterolateral and apical lateral wall segments show a moderate reduction in isotope distribution. All remaining scored wall segments show normal isotope distribution. Wall motion with stress: All remaining scored wall segments are normal. s sp@c Nuclear Protocol Details Stress Examination Details Type of Stress: Lexiscan Exercise Time: 03:03 Device: Treadmill HR [place] Used: 6.00 % HR Recovery: 1 bpm Frequent VE: 0 VE/min Resolution: Spontaneous Max HR: 71 bpm Target HR: 136 bpm Achieved: No Resting HR: 61 bpm Max Predicted HR: 160 bpm Achv. of Max Predicted: 44 % BP Max: 176/70 BP at Rest: 176/70 Max RPP: 10332 mmHg*bpm Max ST Lead: I Max ST Phase: Postinfsn Stage No. in Phase: [address] Stage: 4-[address] Amplitude: -0.[address] Griggs: -0.140 mV/s Max ST Time in Phase: 04:27 Artifact Count: 0 PSVC Count: 2 Bigeminy Count: 1 PVC Count: 61 Chest Pain: no Pharmalogical Stress Examination Protocol Stage Name Time in Stage Load Heart Rate BP Dosage ST Level Cardiac Arrhy Cardiac Symp. Other Pain Changes Symptom Supine 11:41 1.00 mets 61 bpm 176/70 -0.200 mm Infusion 30 seconds 00:30 1.00 mets 63 bpm 176/70 -0.200 mm [id number] 00:30 1.00 mets 61 bpm 176/70 -0.150 mm INFUS1:30 00:30 1.00 mets 70 bpm 176/70 -0.200 mm INFUS2:00 00:30 1.00 mets 71 bpm 149/75 -0.150 mm INFUS2:30 00:30 1.00 mets 69 bpm 149/75 -0.200 mm INFUS3:00 00:33 1.00 mets 70 bpm 155/64 -0.200 mm 0-1 min 01:00 1.00 mets 69 bpm 155/64 -0.200 mm 1-2 min 01:00 1.00 mets 69 bpm 156/70 -0.250 mm 2-3 min 01:00 1.00 mets 68 bpm 156/70 -0.250 mm 3-4 min 01:00 1.00 mets 68 bpm 161/65 -0.200 mm 4-5 min 01:00 1.00 mets 68 bpm 161/65 -0.150 mm 5-6 min 00:16 1.00 mets 68 bpm 155/68 -0.250 mm Assessment Terminate Reason: Stress termination reason: Infusion complete Resting ECG: Normal sinus rhythm, The ECG showed 1? AV block, Resting ECG: Premature ventricular contractions ST Changes: no Chest Pain: no Arrhythmias: Arrhythmias seen: ventricular premature beats Functional Capacity: Functional capacity is not determined Exercise Interpretation: Normal Lexiscan EKG stress test Overall Impression: Overall interpretation: No ischemic ECG changes seen Region Quantitation LAD Circumflex RCA Total Summed Score Stress 0 13 0 13 Difference 3 Rest 0 10 0 10 Ischemia 0 3 0 3 Regional Score Total 0 26 0 Stress/Rest 1 Perfusion: Rest Stress/Redistribution Difference 0 - Normal, 1 - Mild Reduction, 2 - Moderate Reduction, 3 - Severe Reduction, 4 - Absent Uptake LV Function: REST STRESS 0 - Normal, 1 - Hypokinesia, 2 - Akinesia, 3 - Dyskinesia, 4 - Aneurysmal Procedure Staff Reading Group: [facility] Referring Physician: Pierce Cartwright MD Stress Cogeneration Operator: Natalie Chapa Sheep Farm Manager: Yanet Alvarado Ordering Physician: Jeffery Sosa MD Advanced Practitioner: DIMITRY Michael Resting Perfusion Procedure Note Stephanie Dash MD - 10/04/2024 1 1 [facility] Heart Station [address] [place] [address] [phone] (fax) Lexiscan Stress Myocardial Perfusion Imaging- [facility] Name: GOPAL YATES Study Date: 10/04/2024 12:19 PM B/P: / HR: Date of : 1965 Location: [facility] Height: 76 in. Age: 59 year(s) Patient Room: Weight: 214.1 lb. Gender: Male Patient Status: OutPt BSA: 2.28 m2 Indication: Pre-op evaluation Kidney Transplant Examination: Lexiscan Stress Myocardial Perfusion Imaging Image Quality: Good Patient Consent: Procedure explained to patient, information sheet reviewed Clinical Data Smoking: Former Smoker, > 1 year Hypertension: Yes Dyslipidemia: Yes Prior PCI: Yes On Dialysis: Yes Peripheral Arterial Disease: Yes Diabetes: Yes Known CAD: Yes Physical Activity: Sedentary level of activity Chest Pain: No Dyspnea: No Department Discharge: Patient exited Heart Station asymptomatic Medication Category Medication Name Dose Comment General Medications Aspirin (Aspir) General Medications Coreg General Medications Hydralazine (Apresoline) General Medications Isosorbide Dinitrate General Medications Nifedipine General Medications Pravastatin (Pravachol) General Medications Insulin Glargine (Lantus) Conclusions Positive perfusion stress test for ischemia Abnormal myocardial perfusion with extensive soft tissue artifact Anterolateral and inferolateral predominantly fixed defect with mild reversibility consistent with infarct and mild amol-infarct ischemia Normal global left ventricular function with EF 60% No transient ischemia dilatation, TID index score is 1.09 Negative Lexiscan ECG stress test for ischemia Moderate to severe coronary calcification on attenuation correction CT scan Findings Technique IV Lexiscan Nuclear cardiac stress scan with electrocardiographic analysis and myocardial perfusion imaging was performed due to difficulty walking. 0.4 mg IV Lexiscan was given over 10-15 seconds. A One-Day SPECT Rest/Gated Stress protocol was performed. Tc99m Sestamibi with a dose of 10.7 mCi was injected intravenously 1 hour prior to rest imaging. Tc99m Sestamibi with a dose of 34.7 mCi was injected intravenously immediately after Lexiscan infusion. Computer assisted reconstruction was performed by standard Gated SPECT techniques for the generation of reconstructed horizontal, vertical long-axis, and short axis projections. Patients are given a caffeinated beverage after stress portion of test. Outpatients are also given a light snack. Stress Test Findings The patient performed isometric for 03:03 minutes by the Lexiscan protocol and achieved a heart rate of 71 bpm or 44 % of the maximal predicted heart rate. The pharmacologic stress was terminated due to Stress termination reason: Infusion complete. The resting ECG demonstrates: Normal sinus rhythm, The ECG showed 1? AV block and Resting ECG: Premature ventricular contractions. The patient had no chest pain during the study. There were no ST changes at maximal exercise. Perfusion and Wall Motion Findings The transient ischemic dilation (TID) ratio is 1.09. The gated stress calculated left ventricular ejection fraction is 60%. Perfusion after stress: The basal anterolateral and mid anterolateral wall segments show moderate reduction in the myocardium. The basal inferolateral, mid inferolateral and apical lateral wall segments show severe reduction in the myocardium. All remaining scored wall segments show normal isotope distribution. Perfusion at rest: The basal inferolateral, basal anterolateral, mid inferolateral, mid anterolateral and apical lateral wall segments show a moderate reduction in isotope distribution. All remaining scored wall segments show normal isotope distribution. Wall motion with stress: All remaining scored wall segments are normal. s sp@c Nuclear Protocol Details Stress Examination Details Type of Stress: Lexiscan Exercise Time: 03:03 Device: Treadmill HR [place] Used: 6.00 % HR Recovery: 1 bpm Frequent VE: 0 VE/min Resolution: Spontaneous Max HR: 71 bpm Target HR: 136 bpm Achieved: No Resting HR: 61 bpm Max Predicted HR: 160 bpm Achv. of Max Predicted: 44 % BP Max: 176/70 BP at Rest: 176/70 Max RPP: 88769 mmHg*bpm Max ST Lead: I Max ST Phase: Postinfsn Stage No. in Phase: [address] Stage: 4-[address] Amplitude: -0.[address] [place]: -0.140 mV/s Max ST Time in Phase: 04:27 Artifact Count: 0 PSVC Count: 2 [place] Count: 1 PVC Count: 61 Chest Pain: no Pharmalogical Stress Examination Protocol Stage Name Time in Stage Load Heart Rate BP Dosage ST Level Cardiac Arrhy Cardiac Symp. Other Pain Changes Symptom Supine 11:41 1.00 mets 61 bpm 176/70 -0.200 mm Infusion 30 seconds 00:30 1.00 mets 63 bpm 176/70 -0.200 mm [id number] 00:30 1.00 mets 61 bpm 176/70 -0.150 mm INFUS1:30 00:30 1.00 mets 70 bpm 176/70 -0.200 mm INFUS2:00 00:30 1.00 mets 71 bpm 149/75 -0.150 mm INFUS2:30 00:30 1.00 mets 69 bpm 149/75 -0.200 mm INFUS3:00 00:33 1.00 mets 70 bpm 155/64 -0.200 mm 0-1 min 01:00 1.00 mets 69 bpm 155/64 -0.200 mm 1-2 min 01:00 1.00 mets 69 bpm 156/70 -0.250 mm 2-3 min 01:00 1.00 mets 68 bpm 156/70 -0.250 mm 3-4 min 01:00 1.00 mets 68 bpm 161/65 -0.200 mm 4-5 min 01:00 1.00 mets 68 bpm 161/65 -0.150 mm 5-6 min 00:16 1.00 mets 68 bpm 155/68 -0.250 mm Assessment Terminate Reason: Stress termination reason: Infusion complete Resting ECG: Normal sinus rhythm, The ECG showed 1? AV block, Resting ECG: Premature ventricular contractions ST Changes: no Chest Pain: no Arrhythmias: Arrhythmias seen: ventricular premature beats Functional Capacity: Functional capacity is not determined Exercise Interpretation: Normal Lexiscan EKG stress test Overall Impression: Overall interpretation: No ischemic ECG changes seen Region Quantitation LAD Circumflex RCA Total Summed Score Stress 0 13 0 13 Difference 3 Rest 0 10 0 10 Ischemia 0 3 0 3 Regional Score Total 0 26 0 Stress/Rest 1 Perfusion: Rest Stress/Redistribution Difference 0 - Normal, 1 - Mild Reduction, 2 - Moderate Reduction, 3 - Severe Reduction, 4 - Absent Uptake LV Function: REST STRESS 0 - Normal, 1 - Hypokinesia, 2 - Akinesia, 3 - Dyskinesia, 4 - Aneurysmal Procedure Staff Reading Group: [facility] Referring Physician: Pierce Cartwright MD Stress Cogeneration Operator: Natalie Chapa Sheep Farm Manager: Yanet Alvarado Ordering Physician: Jeffery Sosa MD Advanced Practitioner: DIMITRY Michael Resting Perfusion us Jeffery Sosa MD CV STRESS PROCEDURES Final R esult documented in this encounter Visit Diagnoses Diagnosis Pre-transplant evaluation for kidney transplant Coronary artery disease involving left main coronary artery Abnormal cardiovascular stress test- Primary Other nonspecific abnormal cardiovascular system function study Abnormal cardiovascular stress test Other nonspecific abnormal cardiovascular system function study documented in this encounter Administered Medications Inactive Administered Medications - up to 3 most recent administrations Medication Order MAR Action Action Date Dose Rate Site kit prep Tc 99m-sestamibi no.1 (Cardiolite) radio-isotope injection 10 millicurie 10 millicurie, intravenous, Once in imaging, Starting on Wed10/04/24 at 1051, For 99 days Given 10/04/2024 11:00 AM EDT 10 millicuries kit prep Tc 99m-sestamibi no.1 (Cardiolite) radio-isotope injection 30 millicurie 30 millicurie, intravenous, Once in imaging, Starting on Wed10/04/24 at 1051, For 99 days Given 10/04/2024 12:36 PM EDT 30 millicuries regadenoson (Lexiscan) injection 0.4 mg 0.4 mg, intravenous, Once, On Wed10/04/24 at 1100, For 1 dose Given 10/04/2024 11:00 AM EDT 0.4 mg documented in this encounter Care Teams District Attorney Relationship Specialty Start Date End Date Pierce Cartwright MD [address] [place] [address] PCP - General 12/11/21 Gopal Stevens MD [address] [place] [address] Consulting Physician Urology 08/30/24 Nephrology Consulting Physician Nephrology 01/12/22 documented as of this encounter
--- OUTSIDE RECORDS SUMMARY | 2024-10-17 10:13 | XMS_ITS | Encounter Summary ---
Author Organization [facility] Address [address] [place] [address] Care Team Providers Care Technical Administrator Name Role Phone Pierce Cartwright MD Primary Care Provider [phone] Franklin Stevens MD Unavailable Reason for Visit * Reason Comments Cardiac testing results Encounter Details Date Type Department Care Team (Late st Contact Info) Description 10/05/2024 Results Follow-Up [facility] Transplant [address] [place] [phone] Iraj Perez Stress Myocardial Perfusion Imaging Social History Tobacco Use Types Packs/Day Years Used Date Smoking Tobacco: Former Cigarettes 1 12 1 983 - 1994 Smokeless Tobacco: Never Alcohol Use Standard Drinks/Week Comments Not Currently 0 (1 standard drink = 0.6 oz pur e alcohol) PHQ-2 Answer Date Recorded Patient Health Questionnaire-2 Score 0 08/30/2024 MD Safety & Environment Answer Date Rec orded [...] AM EDT documented as of this encounter Miscellaneous Notes * Addendum Note - Iraj Perez - 10/05/2024 12:21 PM EDTAddended by: IRAJ PEREZ on: 10/05/2024 12:21 PM Modules accepted: Orders * Telephone Encounter - Iraj Perez - 10/05/2024 12:14 PM EDT ----- Message from Lily Sosa MD sent at 10/05/2024 2:36 AM EDT ----- The stress test showed ischemia. he needs cardiac cath. Please schedule for right heart cath and coronary angiogram. ----- Message ----- From: Interface, Radiology Results In Sent: 10/04/2024 2:38 PM EDT To: Jeffery Sosa MD documented in this encounter Plan of Treatment Upcoming Encounters Date Type Department Care Team (Late st Contact Info) Description 10/19/2024 12:30 PM EDT Hospital Encounter [facility] [address] [place] [address] Jeffery Sosa MD [address] [place] [address] Abnormal cardiovascular stress test 10/19/2024 12:30 PM EDT - 10/19/2024 1:[address] [facility] [address] [place] [address] Jeffery Sosa MD [address] [place] [phone] Coronary angiography Scheduled Orders Name Type Priority Associated Diagnoses Orde r Schedule Basic metabolic panel Lab Routine Abnormal cardiovascular stress test Expected: 10/05/2024 (Approximate), Expires: 10/05/2025 CBC and differential Lab Routine Abnormal cardiovascular stress test Expected: 10/05/2024 (Approximate), Expires: 10/05/2025 documented as of this encounter Visit Diagnoses Diagnosis Abnormal cardiovascular stress test- Primary Other nonspecific abnormal cardiovascular system function study Abnormal cardiovascular stress test- Primary Other nonspecific abnormal cardiovascular system function study Abnormal cardiovascular stress test Other nonspecific abnormal cardiovascular system function study documented in this encounter Care Teams Technical Administrator Relationship Specialty Start Date End Date Pierce Cartwright MD [address] [facility] [place] [address] PCP - General 12/11/21 Franklin Stevens MD [address] [place] [phone] Consulting Physician Urology 08/30/24 Nephrology Consulting Physician Nephrology 01/12/22 documented as of this encounter
--- OUTSIDE RECORDS SUMMARY | 2024-10-17 10:13 | XMS_ITS | Encounter Summary ---
Author Organization [facility] Address [address] [place] [address] Care Team Providers Care Vacuum Pan Tender Name Role Phone Pierce Cartwright MD Primary Care Provider [phone] Franklin Stevens MD Unavailable Encounter Details Date Type Department Care Team (Late st Contact Info) Description 10/05/2024 Telephone [facility] [address] [place] [phone] Tanvi Hathaway Social History Tobacco Use Types Packs/Day Years Used Date Smoking Tobacco: Former Cigarettes 1 1994 Smokeless Tobacco: Never Alcohol Use Standard Drinks/Week Comments Not Currently 0 (1 standard drink = 0.6 oz pur e alcohol) PHQ-2 Answer Date Recorded Patient Health Questionnaire-2 Score 0 08/30/2024 [place] Safety & Environment Answer Date Rec orded [...] as of this encounter Miscellaneous Notes * Telephone Encounter - Tanvi Hathaway - 10/09/2024 11:53 AM EDT Spoke with patient he verbalized understanding and confirmed date/time of procedure. He will have lab work done 10/16/24 at [facility]. All questions were answered. Written instructions and lab orders mailed to patient. * Telephone Encounter - Tanvi Hathaway - 10/05/2024 4:16 PM EDT Attempted to call patient to let him know his cardiac cath w/ Dr. Sosa had been scheduled. No answer / unable to LVM. Patient is scheduled for 10/19/24 () at 12:30 pm , with arrival at 11 am. Patient will need pre-procedure labs done Wednesday10/16/24 locally ([place]). documented in this encounter Plan of Treatment Upcoming Encounters Date Type Department Care Team (Late st Contact Info) Description 10/19/2024 12:30 PM EDT Hospital Encounter [facility] [address] [place] [phone] Jeffery Sosa MD [address] [place] [phone] Abnormal cardiovascular stress test 10/19/2024 12:30 PM EDT - 10/19/2024 1:30 PM EDT Surgery [facility] [address] [place] [phone] Jeffery Sosa MD [address] [place] [phone] Coronary angiography documented as of this encounter Visit Diagnoses Not on filedocumented in this encounter Care Teams Vacuum Pan Tender Relationship Specialty Start Date End Date Pierce Cartwright MD [address] [place] [address] PCP - General 12/11/21 Franklin Stevens MD [address] [facility] [place] [phone] Consulting Physician Urology 08/30/24 Nephrology Consulting Physician Nephrology 01/12/22 documented as of this encounter
--- OUTSIDE RECORDS SUMMARY | 2024-10-17 10:13 | XMS_ITS | Encounter Summary ---
Author Organization [facility] Address [address] [place] [address] Care Team Providers Care Surfacing Technician Name Role Phone Pierce Cartwright MD Primary Care Provider [phone] Source Comments In the event this information is protected by the Federal Confidentiality of Alcohol and Drug AbusePatient Records regulations: The Federal rules restrict any use of the information to criminally investigate or prosecute any alcohol or drug abuse patient.[facility] Encounter Details Date Type Department Care Team (Late st Contact Info) Description 05/26/2022 Lab Requisition [facility] [address] [place] [address] Primo Luis MD [address] [place] [address] Social History Tobacco Use Types Packs/Day Years Used Date Smoking Tobacco: Never Passive Smoke Exposure: Past Smokeless Tobacco: Never Alcohol Use Standard Drinks/Week Comments Not Currently 0 (1 standard drink = 0.6 oz pur e alcohol) PHQ-2 Answer Date Recorded PHQ-2 score 0 04/16/2022 Area Deprivation Index Answer Date Germán rded National Score (1-100), lower number is lower ri sk 91 04/08/2022 State Score (1-10), lower number is lower risk N ot on file 04/08/2022 Data from: https://www.neighborhoodatlas.[facility]/. Last address used for calculation [address] 04/08/2022 Sex and Gender Information Value Date Recorded Sex Assigned at Not on file Legal Sex Male 1:35 PM EDT Gender Identity Not on file Sexual Orientation Not on file documented as of this encounter Plan of Treatment Not on file documented as of this encounter Procedures Procedure Name Priority Date/Time Associated Diagnosis Comments ORGANISM MARCELO Routine 05/21/2022 6:37 PM EST documented in this encounter Results * (ABNORMAL) ORGANISM MARCELO (05/21/2022 6:37 PM EST) Culture, Organism MARCELO Result Bacteroides fragilis(A) MINIMUM INHIBITORY CONCENTRATION ([place]) 06/01/2022 8:05 AM EDT [facility] Comment: Identification performed by client. Bacteroides spp. are intrinsically resistant to ampicillin, penicillin, and aminoglycosides. Micro Specimen OTHER / Unknown 05/21/2022 6:37 PM EST 05/26/2022 4:48 AM EST Narrative Organism Antibiotic Method Susceptibility Bacteroides fragilis Ertapenem MINIMUM INH IBITORY CONCENTRATION(E-TEST) 2: Susceptible Bacteroides fragilis Ampicillin/Sulbact MINIMUM INHIBITORY CONCENTRATION(E-TEST) 8: Susceptible Bacteroides fragilis Metronidazole MINIMUM INH IBITORY CONCENTRATION(E-TEST) 0.064: Susceptible us Primo Luis MD LABORATORY Final Resul t [facility] [address] documented in this encounter Visit Diagnoses Not on filedocumented in this encounter Care Teams Surfacing Technician Relationship Specialty Start Date End Date Pierce Cartwright MD PCP - General Family Medicine 09/29/21 documented as of this encounter
--- OUTSIDE RECORDS SUMMARY | 2024-10-17 10:13 | XMS_ITS | Encounter Summary ---
Author Organization [facility] Address [address] [place] [address] Care Team Providers Care Continuum Of Care Manager Name Role Phone Pierce Cartwright MD Primary Care Provider [phone] Source Comments In the event this information is protected by the Federal Confidentiality of Alcohol and Drug AbusePatient Records regulations: The Federal rules restrict any use of the information to criminally investigate or prosecute any alcohol or drug abuse patient.[facility] Encounter Details Date Type Department Care Team (Late st Contact Info) Description 05/12/2022 Lab Requisition [facility] [address] [place] [address] Selam Larsen, DPFrank [address] [place] [address] Social History Tobacco Use Types Packs/Day Years [...] N ot on file 04/08/2022 Data from: https://www.neighborhoodatlas.[facility]/. Last address used for calculation [address] [...] Date/Time Associated Diagnosis Comments ORGANISM MARCELO Routine 05/05/2022 1:41 PM EST documented in this encounter Results * (ABNORMAL) ORGANISM MARCELO (05/05/2022 1:41 PM EST) Culture, Organism MARCELO Result Bacteroides fragilis group(A) MINIMUM INHIBITORY CONCENTRATION ([place]) 05/18/2022 8:02 AM EST [facility] Comment: Specifically Bacteroides fragilis,as identified by client. Bacteroides spp. are intrinsically resistant to ampicillin, penicillin, and aminoglycosides. Micro Specimen FOOT JOINT SYNOVIAL FLUID / Unknown 05/05/2022 1:41 PM EST 05/12/2022 4:45 AM EST Narrative [facility] - 05/18/2022 8:02 AM EST Organism Antibiotic Method Susceptibility Bacteroides fragilis group Ertapenem MINIMUM INHIBITORY CONCENTRATION(E-TEST) 0.25: Susceptible Bacteroides fragilis group Ampicillin/Sulbact MINIMUM INHIBITORY CONCENTRATION(E-TEST) 8: Susceptible Bacteroides fragilis group Metronidazole MINIMUM INHIBITORY CONCENTRATION(E-TEST) 0.125: Susceptible us Selam Larsen DPM LABORATORY Final Resu lt [facility] [address] documented in this encounter Visit Diagnoses Not on filedocumented in this encounter Care Teams Continuum Of Care Manager Relationship Specialty Start Date End Date Pierce Cartwright MD PCP - General Family Medicine 09/29/21 documented as of this encounter
--- OUTSIDE RECORDS SUMMARY | 2024-10-17 10:13 | XMS_ITS | Encounter Summary ---
Author Organization [facility] Address [address] [place] [address] Care Team Providers Care Industrial Machine Operator Name Role Phone Pierce Cartwright MD Primary Care Provider [phone] Franklin Stevens MD Unavailable Encounter Details Date Type Department Care Team (Latest Contact Info) Description 10/12/2024 Travel Social History Tobacco Use Types Packs/Day Years Used Date Smoking Tobacco: Former Cigarettes 1994 Smokeless Tobacco: Never Alcohol Use Standard Drinks/Week Comments Not Currently 0 (1 standard drink = 0.6 oz pur e alcohol) PHQ-2 Answer Date Recorded Patient Health Questionnaire-2 Score 0 08/30/2024 [place] Safety & Environment Answer Date Rec orded [...] AM EDT documented as of this encounter Plan of Treatment Upcoming Encounters Date Type Department Care Team (Late st Contact Info) Description 10/19/2024 12:30 PM EDT Hospital Encounter [facility] [address] [place] [phone] Jeffery Sosa MD [address] [facility] [address] [facility] [place] [address] Abnormal cardiovascular stress test 10/19/2024 12:30 PM EDT - 10/19/2024 1:30 PM EDT Surgery [facility] [address] [facility] [place] [address] Jeffery Sosa MD [address] [facility] [address] [facility] [place] [address] Coronary angiography documented as of this encounter Visit Diagnoses Not on filedocumented in this encounter Care Teams Industrial Machine Operator Relationship Specialty Start Date End Date Pierce Cartwright MD [address] [place] [address] PCP - General 12/11/21 Franklin Stevens MD [address] [place] [address] Consulting Physician Urology 08/30/24 Nephrology Consulting Physician Nephrology 01/12/22 documented as of this encounter
--- OUTSIDE RECORDS SUMMARY | 2024-10-17 10:14 | XMS_ITS | Clinical Summary ---
Author Organization [facility] Address [address] [place] [address] Care Team Providers Care Passenger Tire Builder Name Role Phone Pierce Cartwright MD Primary Care Provider [phone] Allergies Active Allergy Reactions Criticality Noted Date Comments Sulfa Antibiotics Unknown 10/01/2021 Medications carvedilol (Coreg) 3.125 MG tablet Take 3.125 mg by mouth in the morning and 3.125 mg in the evening. Take with meals. Active hydrALAZINE (Apresoline) 50 MG tablet Take 50 mg by mouth in the morning and 50 mg before bedtime. Active pravastatin (Pravachol) 20 MG tablet Take 20 mg by mouth Active potassium chloride CR (Klor-Con M10) 10 MEQ ER tablet Take 10 mEq by mouth Daily Do not crush or chew. Active magnesium 30 MG tablet Take 30 mg by mouth in the morning and 30 mg before bedtime. Active omeprazole OTC (PriLOSEC OTC) 20 MG EC tablet Take 20 mg by mouth in the morning. Take before meals. Do not crush, chew, or split. Active sevelamer carbonate (Renvela) 800 MG tablet TAKE TWO TABLETS BY MOUTH THREE TIMES A DAY (WITH MEALS) AND TAKE ONE TABLET WITH SNACKS (7 TABLETS DAILY) 4 Active Lantus SoloStar 100 UNIT/ML pen INJECT 16 UNITS SUBCUTANEOUSLY DAILY Active aspirin 81 MG EC tablet Take 81 mg by mouth Daily Active Active Problems Problem Noted Date Diagnosed Date Ulcer of right foot with necrosis of bone 05/25/ 2023 Ulcer of great toe, right, with necrosis of bone 08/13/2022 Osteomyelitis of right foot 08/13/2022 Abscess of right foot 08/13/2022 Diabetic foot ulcer with osteomyelitis 3 Peripheral vascular disease, unspecified 023 Resolved Problems Problem Noted Date Diagnosed Date Resolved Date Ulcer of left foot 08/13/2022 3 Encounters Date Type Department Care Team Description 10/09/2024 Abstract [facility] [address] [place] [address] Galo Corado DPM 10/09/2024 Telephone 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 [address] [place] [address] Galo Corado DPM 09/25/2024 Travel 09/21/2024 Travel 09/20/2024 Travel 09/15/2024 Travel 09/06/2024 2:30 PM EDT Procedure Visit [facility] [address] [place] [phone] Selam Larsen DPM Status post amputation of foot, right (HCC) (Primary Dx); Type II diabetes mellitus with neurological manifestations (HCC); Onychomycosis; Corns and callosities 09/06/2024 [facility] [address] [place] [address] Selam Larsen DPM 09/06/2024 Travel 08/02/2024 3:15 PM EDT [facility] [address] [place] [address] Galo Corado DPM Status post amputation of foot, right (HCC) (Primary Dx); Type II diabetes mellitus with neurological manifestations (HCC); Peripheral vascular disease, unspecified 08/02/2024 Bamboo flowsheet [facility] [address] [place] [address] Galo Corado DPM 08/02/2024 Travel 08/01/2024 Travel 07/21/2024 Travel 07/18/2024 1:45 PM EDT Office Visit [facility] [address] [place] [address] Galo Corado DPM Peripheral vascular disease, unspecified (Primary Dx); Corns and callosities; Type II diabetes mellitus with neurological manifestations (HCC); Status post amputation of foot, right (HCC) 07/18/2024 Bamboo flowsheet [facility] [address] [place] [address] Galo Corado DPM 07/18/2024 Travel from Last 3 Months Family History Medical History Relation Name Comments Diabetes Father Heart disease Father Hyperlipidemia Father Hypertension Father Breast cancer Mother Hypertension Mother Relation Name Status Comments Father Mother Social History Tobacco Use Types Packs/Day Years Used Date Smoking Tobacco: Never Smokeless Tobacco: Never Tobacco Cessation:Counseling Given: Not Answered Alcohol Use Standard Drinks/Week Comments Not Asked 0 (1 standard drink = 0.6 oz pure alcohol) caffeine intake:1-2 cups per day soda/pop Sex and Gender Information Value Date Recorded Sex Assigned at Not on file Legal Sex Male 9:34 PM EDT Gender Identity Not on file Sexual Orientation Not on file Last Filed Vital Signs Vital Sign Reading Time Taken Comments Blood Pressure 120/80 05/11/2022 12:00 PM EST Pulse - - Temperature - - Respiratory Rate - - Oxygen Saturation - - Inhaled Oxygen Concentration - - Weight 87.5 kg (193 lb) 09/25/2024 1:26 PM EDT Height 193 cm (6' 4 ) 09/25/2024 1:26 PM EDT Body Mass Index 23.49 09/25/2024 1:26 PM EDT Plan of Treatment Upcoming Encounters Date Type Department Care Team (Late st Contact Info) Description 12/11/2024 3:15 PM EDT Procedure [facility] [address] [place] [address] Selam Larsen DPM [address] [place] [address] Health Maintenance Due Date Last Done Comments CT Colonography 1964 Colonoscopy 1964 Colorectal Cancer Screening 1964 FIT-DNA 1964 FIT 1964 FOBT 1965 Sigmoidoscopy 1964 Influenza Vaccine (#1) 2024 Insurance MEDICARE MEDICAID [place] Care Teams Passenger Tire Builder Relationship Specialty Start Date End Date Pierce Cartwright MD [address] [place] [phone] PCP - General Family Medicine 08/12/22
--- OUTSIDE RECORDS SUMMARY | 2024-10-17 10:14 | XMS_ITS | Clinical Summary ---
Author Organization 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 Active insulin aspart (NovoLOG) 100 unit/mL (3 mL) pen INJECT PER SCALEIF SUGAR IS <140 = 4U, 140-200 = 8U, OVER 200 12U (35 DAY SUPPLY) Active insulin glargine (Lantus) 100 unit/mL (3 mL) pen INJECT 16 UNITS SUB Q DAILY (83 DAY SUPPLY) Active levothyroxine (Synthroid, Levoxyl) 100 mcg tablet Take 1 tablet by mouth in the morning. Active liothyronine (Cytomel) 5 mcg tablet Take 2 tablets by mouth in the morning. Active NIFEdipine XL (Procardia XL) 30 mg 24 hr tablet Take 1 tablet by mouth in the morning. Active omeprazole (PriLOSEC) [address] capsule Take 1 capsule by mouth in the morning and at bedtime. Active sevelamer carbonate (Renvela) 800 mg tablet TAKE ONE TABLET BY MOUTH THREE TIMES A DAY WITH MEALS 07/17/19 Active Nephro-Jose 0.8 mg tablet Take 1 tablet by mouth in the morning. 07/09/19 23 Active hydrALAZINE (Apresoline) 50 mg tabletIndication s:Coronary artery disease, unspecified vessel or lesion type, unspecified whether angina present, unspecified whether [place] or transplanted heart TAKE 1 TABLET (50 MG) BY MOUTH IN THE MORNING, AFTERNOON, AND AT BEDTIME. 270 tablet 3 03/11/20 23 Active potassium chloride CR (Klor-Con M20) 20 mEq ER tablet Take 20 mEq by mouth in the morning. 09/09/19 24 Active pravastatin (Pravachol) 20 mg tabletIndication s:Coronary artery disease involving [place] coronary artery of [place] heart without angina pectoris Take 1 tablet (20 mg) by mouth in the morning. 90 tablet 3 12/22/19 24 025 Active carvedilol (Coreg) 25 mg tabletIndication s:Essential hypertension TAKE 1 AND 1/2 TABLETS BY MOUTH TWICE A DAY 270 tablet 3 01/06/20 24 Active isosorbide dinitrate (Isordil) 10 mg tabletIndication s:Chest pain, unspecified type TAKE 1 TABLET (10 MG) BY MOUTH IN THE MORNING, AT NOON, AND AT BEDTIME. 270 tablet 3 01/06/20 24 025 Active hydrOXYzine HCL (Atarax) 25 mg tablet Take 25 mg by mouth 1 (one) time. 03/21/20 24 Active magnesium oxide (Mag-Ox) 400 mg (241.3 mg magnesium) tablet Take 1 tablet by mouth in the morning. 06/02/19 25 Active montelukast (Singulair) 10 mg tablet Take 1 tablet by mouth in the morning. 06/02/19 25 Active calcium carbonate (Tums) 200 mg calcium (500 mg) chewable tablet Chew 1 tablet three times daily. Active guaiFENesin (Mucinex) 600 mg 12 hr tablet Take 1,200 mg by mouth 1 (one) time each day. Do not crush, chew, or split. 025 Discontinued Active Problems Problem Noted Date Diagnosed Date Abnormal cardiovascular stress test 10/05/2024 Chronic foot ulcer 06/19/2024 Type 2 diabetes mellitus 12/22/2023 Anxiety 11/24/2023 Chronic fatigue syndrome 11/24/2023 Diabetic neuropathy 11/24/2023 Diastolic dysfunction 11/24/2023 End-stage renal disease 11/24/2023 Erectile dysfunction 11/24/2023 Chronic GERD 11/24/2023 History of [place] (myocardial infarction) 11/24/2023 History of osteomyelitis 11/24/2023 Hypercholesterolemia 11/24/2023 Hyperparathyroidism 11/24/2023 Iron deficiency anemia 11/24/2023 Multiple nodules of lung 11/24/2023 Occult blood in stools 11/24/2023 Peritoneal dialysis status 11/24/2023 MARTHA (acute kidney injury) 09/09/2023 Fever 09/09/2023 History of fever 09/09/2023 Metabolic acidosis 09/09/2023 Osteomyelitis 09/09/2023 Diabetes mellitus with diabetic neuropathy 09/08 Abscess of right foot 08/13/2022 03/02/2023 Diabetic foot ulcers 08/13/2022 Hypothyroidism 05/18/2022 Vitamin D deficiency 05/01/2022 Coronary artery disease invo lving [place] coronary artery of [place] heart without angina pectoris 01/12/2022 Overview (01/12/2022): S/p PCI to LCx and OM1; calcified 70% LAD and RCA 30-40% per 01/2020 cath Assessment & Plan (09/09/2023 4:02 PM EDT): Coronary artery disease is unchanged. Continue current treatment regimen. Dietary sodium restriction. Continue current medications. Cardiac status will be reassessed in 3 months. Chol and LDL low- will hold zetia and repeat lipids in 3 months- continue pravastatin 40 mg daily. CKD (chronic kidney disease) 01/12/2022 Anemia 01/12/2022 Anemia due to stage 3b chronic kidney disease Edema of lower extremity 04/21/2019 Hypertensive disorder 04/21/2019 Left ventricular systolic dysfunction 04/21/2019 Assessment & Plan (09/09/2023 3:59 PM EDT): [facility] II Continue GDMT- ASA, coreg, hydralazine, isordil, Diuretic therapy- fluid status managed per nephrology with peritoneal dialysis Monitor daily weights, I&O, fluid restriction 1.5-2L/day, renal function and electrolytes- Mitral valve regurgitation 04/21/2019 Assessment & Plan (09/09/2023 3:58 PM EDT): No concerning symptoms today Will monitor with echocardiogram Pericardial effusion 04/21/2019 Heart valve disease Overview (08/25/2024): MR regurgitation CHF (congestive heart failure) Myocardial infarction History of pleural effusion Panic attack Swelling of both lower extremities PVD (peripheral vascular disease) Proteinuria Secondary hyperparathyroidism of renal origin Chronic sinusitis History of tobacco use Encounters Date Type Department Care Team Description 10/12/2024 Travel 10/05/2024 Telephone [facility] [address] [place] [address] Tanvi Hathaway 10/05/2024 Results Follow-Up [facility] Transplant [address] [place] [address] Tanvi Hathaway Stress Myocardial Perfusion Imaging 10/04/2024 10:31 AM EDT - 10/04/2024 11:59 PM EDT Hospital Encounter [facility] Heart Station [place] [place] [address] Pre-transplant evaluation for kidney transplant; Coronary artery disease involving left main coronary artery Discharge Disposition: Home or Self Care () 09/06/2024 Telephone [facility] Infectious Disease [address] [place] [address] [place], [place] 08/30/2024 1:00 PM EDT Lab [facility] Outpatient [place] [address] End stage renal disease (CMS/HCC) 08/30/2024 12:58 PM EDT - 08/30/2024 11:59 PM EDT Hospital Encounter [facility] Heart Station [address] [place] [address] Discharge Disposition: Home or Self Care () 08/30/2024 12:28 PM EDT - 08/30/2024 12:57 PM EDT Hospital Encounter [facility] CT [place] [address] Discharge Disposition: Home or Self Care () 08/30/2024 12:27 PM EDT Hospital Encounter [facility] CT Imaging [address] [place] [address] Discharge Disposition: Home or Self Care () 08/30/2024 12:27 PM EDT Hospital Encounter [facility] X-Ray Imaging [address] [place] [address] Discharge Disposition: Home or Self Care () 08/30/2024 8:00 AM EDT Clinical Support [facility] Transplant [address] [place] [address] Gopal Stevens MD Akrawi, Samer, MD Type 2 diabetes mellitus with ESRD (end-stage renal disease) ([facility]) (Primary Dx); Encounter for other preprocedural examination; End stage renal disease ([facility]); 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 not on chronic dialysis, with long-term current use of insulin ([facility]); Pre-transplant evaluation for kidney transplant [Z01.818] from Last 3 Months Immunizations Immunization Administration Dates Next Due Pfizer SARS-CoV-2 Vaccination 06/11/2021 Unspecified Sars-Cov-2 Vaccination 07/29/2020, Family History Medical History Relation Name Comments COPD Father Coronary artery disease Father Diabetes Father Hyperlipidemia Father Hypertension Father Stroke Father Alzheimer's disease Mother Breast cancer Mother Hypertension Mother Coronary artery disease Paternal Grandmother Relation Name Status Comments Daughter 1 Adrian Alive Daughter 2 Cassidy Alive Father Mother Paternal Grandmother Social History Tobacco Use Types Packs/Day Years Used Date Smoking Tobacco: Former Cigarettes 1 12 1 983 - 1994 Smokeless Tobacco: Never Alcohol Use Standard Drinks/Week Comments Not Currently 0 (1 standard drink = 0.6 oz pur e alcohol) PHQ-2 Answer Date Recorded Patient Health Questionnaire-2 Score 0 08/30/2024 [place] Safety & [place] Answer Date Rec orded [...] Heterosexual or Straight 09/19 10:31 AM EDT Last Filed Vital Signs Vital Sign Reading Time Taken Comments Blood Pressure 161/85 08/30/2024 8:06 AM EDT Pulse 57 08/30/2024 8:06 AM EDT Temperature 36.7 C (98.1 F) 08/30/2024 8:06 AM EDT Respiratory Rate 18 08/30/2024 8:06 AM EDT Oxygen Saturation 100% 08/30/2024 8:06 AM EDT Inhaled Oxygen Concentration - - Weight 97.3 kg (214 lb 6.4 oz) 08/30/2024 8:06 A M EDT Height 193 cm (6' 4 ) 08/30/2024 8:06 AM EDT Body Mass Index 26.1 08/30/2024 8:06 AM EDT Plan of Treatment Upcoming Encounters Date Type Department Care Team (Late st Contact Info) Description 10/19/2024 12:30 PM EDT Hospital Encounter [facility] [address] [place] [address] Jeffery Sosa MD [address] [place] [phone] Abnormal cardiovascular stress test 10/19/2024 12:30 PM EDT - 10/19/2024 1:30 PM EDT Surgery [facility] [address] [facility] [place] [address] Jeffery Sosa MD [address] [place] [address] Coronary angiography Health Maintenance Due Date Last Done Comments CT Colonography 1965 FIT-DNA 1965 FIT 1965 FOBT 1965 Medicare Annual Wellness (AWV) 1965 Sigmoidoscopy 1965 Diabetes: Retinopathy Screening 1974 Diabetes: Urine Protein Screening 08/01/1983 Adult Tetanus 1986 Zoster Vaccines (1 of 2) 2014 COVID-19 Vaccine ( season) 2023 06/11/2021, 06/11/2021, 07/29/2020, Additional history exists Influenza Vaccine (#1) 2024 Diabetes: Hemoglobin A1C 11/30/2024 08/30/2024 Depression Screening 08/30/2025 08/30/2024 Colonoscopy 05/18/2028 05/18/2018 Colorectal Cancer Screening 05/18/2028 Pneumococcal Vaccine: Pediatrics (0 to 5 Years) and At-Risk Patients (6 to 64 Years) Completed 12/21/2023 HIB Vaccines Aged Out No longer eligi ble based on patient's age to complete this topic HPV Vaccines Aged Out No longer eligi ble based on patient's age to complete this topic IPV Vaccines Aged Out No longer eligi ble based on patient's age to complete this topic Meningococcal B Vaccine Aged Out No l onger eligible based on patient's age to complete this topic Meningococcal Vaccine Aged Out No roldan carlton eligible based on patient's age to complete this topic Rotavirus Vaccines Aged Out No longer eligible based on patient's age to complete this topic Procedures Procedure Name Priority Date/Time Associated Diagnosis Comments LEXISCAN STRESS MYOCARDIAL PERFUSION IMAGING Routine 10/04/2024 1:27 PM EDT Pre-transplant evaluation for kidney transplant Coronary artery disease involving left main coronary artery ECG 12-LEAD Routine 08/30/2024 1:29 PM EDT End stage renal disease ([facility]) CT ABDOMEN PELVIS WO RENAL RECIPIENT Routine 08/30/2024 12:56 PM EDT End stage renal disease ([facility]) CT CHEST WO IV CONTRAST Routine 08/31/19 12:55 PM EDT End stage renal disease ([facility]) XR CHEST 2 VIEWS Routine 08/30/2024 12:5 2 PM EDT End stage renal disease ([facility]) SINGLE ANTIGEN CLASS II Routine 08/31/19 12:31 PM EDT Type 2 diabetes mellitus with ESRD (end-stage renal disease) ([facility]) Encounter for other preprocedural examination End stage renal disease ([facility]) 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 not on chronic dialysis, with long-term current use of insulin ([facility]) SINGLE ANTIGEN CLASS I Routine 5 12:31 PM EDT Type 2 diabetes mellitus with ESRD (end-stage renal disease) ([facility]) Encounter for other preprocedural examination End stage renal disease ([facility]) 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 not on chronic dialysis, with long-term current use of insulin ([facility]) C-PEPTIDE Routine 08/30/2024 12:31 PM EDT End stage renal disease ([facility]) CBC WITH AUTO DIFFERENTIAL Routine 08/30/2024 12:31 PM EDT End stage renal disease ([facility]) PANEL REACTIVE ANTIBODY Routine 08/31/19 25 12:31 PM EDT End stage renal disease ([facility]) HLA DR CLASS II TYPING Routine 5 12:31 PM EDT End stage renal disease ([facility]) HLA ABC CLASS I TYPING Routine 5 12:31 PM EDT End stage renal disease ([facility]) VARICELLA ZOSTER ANTIBODY, IGG Routine 08/30/2024 12:31 PM EDT End stage renal disease ([facility]) QUANTIFERON TB GOLD Routine 08/30/2024 1 2:31 PM EDT End stage renal disease ([facility]) RUBEOLA ANTIBODY IGG Routine 08/30/2024 12:31 PM EDT End stage renal disease ([facility]) RUBELLA ANTIBODY, IGG Routine 08/30/2024 12:31 PM EDT End stage renal disease ([facility]) MUMPS ANTIBODY, IGG Routine 08/30/2024 1 2:31 PM EDT End stage renal disease (CMS/HCC) HIV COMBO 4G Routine 08/30/2024 12:31 PM EDT End stage renal disease (CMS/HCC) HEPATITIS C ANTIBODY Routine 08/30/2024 12:31 PM EDT End stage renal disease (CMS/HCC) HEPATITIS B SURFACE ANTIBODY QUANT Routine 08/30/2024 12:31 PM EDT End stage renal disease (CMS/HCC) HEPATITIS B SURFACE ANTIGEN Routine 08/30/2024 12:31 PM EDT End stage renal disease (CMS/HCC) HEPATITIS B CORE ANTIBODY, TOTAL Routine 08/30/2024 12:31 PM EDT End stage renal disease (CMS/HCC) HEPATITIS B CORE ANTIBODY, IGM Routine 08/30/2024 12:31 PM EDT End stage renal disease (CMS/HCC) HEPATITIS A ANTIBODY, IGM Routine 08/30/2024 12:31 PM EDT End stage renal disease (CMS/HCC) NEELAM-MAGANA VIRUS VCA ANTIBODY PANEL Routine 08/30/2024 12:31 PM EDT End stage renal disease (CMS/HCC) CYTOMEGALOVIRUS ANTIBODY, IGG Routine 08/30/2024 12:31 PM EDT End stage renal disease (CMS/HCC) CMV IGM Routine 08/30/2024 12:31 PM EDT End stage renal disease (CMS/HCC) PSA Routine 08/30/2024 12:31 PM EDT Encounter for other preprocedural examination End stage renal disease (CMS/HCC) TESTOSTERONE, FREE AND TOTAL, AND SHBG Routine 08/30/2024 12:31 PM EDT End stage renal disease (CMS/HCC) PROTIME-INR Routine 08/30/2024 12:31 PM EDT End stage renal disease (CMS/HCC) LIPID PANEL Routine 08/30/2024 12:31 PM EDT End stage renal disease (CMS/HCC) HEMOGLOBIN A1C Routine 08/30/2024 12:31 PM EDT Type 2 diabetes mellitus with ESRD (end-stage renal disease) (CMS/HCC) COMPREHENSIVE METABOLIC PANEL Routine 08/30/2024 12:31 PM EDT End stage renal disease ([facility]) CBC AND DIFFERENTIAL Routine 08/30/2024 12:31 PM EDT End stage renal disease ([facility]/HCC) BILIRUBIN, DIRECT Routine 08/30/2024 12: 31 PM EDT End stage renal disease ([facility]/HCC) B-TYPE NATRIURETIC PEPTIDE Routine 08/30/2024 12:31 PM EDT Encounter for other preprocedural examination End stage renal disease (CMS/HCC) TYPE AND SCREEN Routine 08/30/2024 12:31 PM EDT End stage renal disease ([facility]/H[facility]) from Last 3 Months Results * Lexiscan Stress Myocardial Perfusion Imaging (10/04/2024 1:27 PM EDT) Anatomical Region Laterality Modality Other 10/04/2024 12:1 9 PM EDT Narrative 10/04/2024 2:36 PM EDT 1 1 [facility] Heart Station [address] [place] [address] [phone] (fax) Lexiscan Stress Myocardial Perfusion Imaging- [facility] Name: GOPAL YATES Study Date: 10/04/2024 12:19 PM B/P: / HR: Date of : 1965 Location: [facility] Height: 76 in. Age: 59 [...] Lexiscan Exercise Time: 03:03 Device: Treadmill HR Chester Used: 6.00 % HR Recovery: 1 bpm Frequent VE: 0 VE/min Resolution: Spontaneous Max HR: 71 bpm Target HR: 136 bpm Achieved: No Resting HR: 61 bpm Max Predicted HR: 160 bpm Achv. of Max Predicted: 44 % BP Max: 176/70 BP at Rest: 176/70 Max RPP: 81659 mmHg*bpm Max ST Lead: I Max ST Phase: Postinfsn Stage No. in Phase: [address] Stage: 4-[address] Amplitude: -0.[address] Swain: -0.140 mV/s Max ST Time in Phase: [...] 1.00 mets 63 bpm 176/70 -0.200 mm [id number] 00:30 1.00 mets 61 bpm 176/70 -0.150 [...] 4 - Aneurysmal Procedure Staff Reading Group: [facility] Referring Physician: Pierce Cartwright MD Stress Precision Lens Technician: Natalie Chapa Early Intervention Specialist: Yanet Alvarado Ordering Physician: Jeffery Sosa MD Advanced Practitioner: DIMITRY Michael Resting Perfusion Procedure Note Stephanie Dash MD - 10/04/2024 1 1 [facility] Heart Station [address] [place] [address] [phone] (fax) Lexiscan Stress Myocardial Perfusion Imaging- [facility] Name: GOPAL YATES Study Date: 10/04/2024 12:19 PM B/P: / HR: Date of : 1965 Location: [facility] Height: 76 in. Age: 59 [...] Lexiscan Exercise Time: 03:03 Device: Treadmill HR [place] Used: 6.00 % HR Recovery: 1 bpm Frequent VE: 0 VE/min Resolution: Spontaneous Max HR: 71 bpm Target HR: 136 bpm Achieved: No Resting HR: 61 bpm Max Predicted HR: 160 bpm Achv. of Max Predicted: 44 % BP Max: 176/70 BP at Rest: 176/70 Max RPP: 58211 mmHg*bpm Max ST Lead: I Max ST Phase: Postinfsn Stage No. in Phase: [address] Stage: 4-[address] Amplitude: -0.[address] Swain: -0.140 mV/s Max ST Time in Phase: [...] 1.00 mets 63 bpm 176/70 -0.200 mm [id number] 00:30 1.00 mets 61 bpm 176/70 -0.150 [...] 4 - Aneurysmal Procedure Staff Reading Group: [facility] Referring Physician: Pierce Cartwright MD Stress Precision Lens Technician: Natalie Chapa Early Intervention Specialist: Yanet Alvarado Ordering Physician: Jeffery Sosa MD Advanced Practitioner: DIMITRY Michael Resting Perfusion us Jeffery Sosa MD CV STRESS PROCEDURES Final R esult * ECG 12 lead (08/30/2024 1:29 PM EDT) Ventricular Rate 61 BPM GE MUSE Atrial Rate 61 BPM GE MUSE [place] Interval 236 ms GE MUSE QRS DURATION 86 ms GE MUSE QT Interval 460 ms GE MUSE QTC CALCULATION(BAZE TT) 463 ms GE MUSE P [place] 72 degrees GE MUSE R-[place] -23 degrees GE MUSE T Wave [place] 20 degrees GE MUSE 08/30/2024 1:07 PM EDT 08/30/2024 5:08 PM EDT Impressions GE MUSE - 08/30/2024 5:09 PM EDT Sinus rhythm with 1st degree A-V block Nonspecific ST and T wave abnormality Abnormal ECG When compared with ECG of 07-FEB-2020 15:51, Premature ventricular complexes are no longer Present [place] interval has increased QT has shortened Confirmed by Florencio WILLOUGHBY, WEST Barraza (56) on 08/30/2024 5:08:56 PM Narrative Procedure Note West Willoughby MD - 08/30/2024 IMPRESSION: Sinus rhythm with 1st degree A-V block Nonspecific ST and T wave abnormality Abnormal ECG When compared with ECG of 07-FEB-2020 15:51, Premature ventricular complexes are no longer Present [place] interval has increased QT has shortened Confirmed by Florencio WILLOUGHBY, WEST Barraza (56) on 08/30/2024 5:08:56 PM West Rodrigues MD ECG ORDERABLES Final Result GE MUSE * CT abdomen pelvis wo renal recipient (08/30/2024 12:56 PM EDT) Anatomical Region Laterality Modality Body, Abdomen Computed Tomogra phy 09/01/2024 1:15 PM EDT Impressions 09/01/2024 1:32 PM EDT 1. Indeterminate inferior pole right renal lesion. Neoplasm is not excluded, and MRI or CT of the kidneys with and without contrast is recommended for further evaluation. 2. Vascular calcifications as detailed above. 3. Small volume ascites and mild body wall edema. 4. CT chest is reported separately. All CT scans at this facility use dose modulation, iterative reconstruction, and/or weight based dosing when appropriate to reduce radiation dose to as low as reasonably achievable. Electronically signed: Jeremy Marshall. Narrative 09/01/2024 1:[address] ABDOMEN AND PELVIS WITHOUT CONTRAST COMPARISON: None. CLINICAL HISTORY: End-stage renal disease, transplant clearance, preoperative evaluation. TECHNIQUE: Unenhanced axial images were obtained from the lung bases to the pubic symphysis with sagittal and coronal 2D reformatted images. Oral contrast administered: No. Automatic exposure control (AEC) was utilized. Findings: Cholelithiasis. Liver, spleen, and pancreas imaging no acute findings given compromised evaluation without intravenous contrast. Normal adrenal glands. Atrophic kidneys. Inferior pole right renal lesion measuring 2.2 cm with cystic component. However, a portion lesion at the medial, inferior aspect is higher in attenuation than fluid. Small volume ascites throughout the abdomen and pelvis. There is a peritoneal dialysis catheter curled in the pelvis. No free intraperitoneal air. No bowel obstruction. Severe calcified plaque of normal caliber abdominal aorta and common iliac arteries. Moderate calcified plaque of bilateral internal iliac arteries. Mild calcified plaque of bilateral external iliac arteries. Small fat-containing right inguinal hernia. Mild body wall edema. Presacral edema. No evidence for enlarged lymph nodes in the abdomen or pelvis given compromised evaluation without intravenous contrast. No acute osseous abnormality. Procedure Note Jeremy Marshall MD - 09/01/2024 CT ABDOMEN AND PELVIS WITHOUT CONTRAST COMPARISON: None. CLINICAL HISTORY: End-stage renal disease, transplant clearance,preoperative evaluation. TECHNIQUE: Unenhanced axial images were obtained from the lung bases tothe pubic symphysis with sagittal and coronal 2D reformatted images. Oralcontrast administered: No. Automatic exposure control (AEC) was utilized. Findings: Cholelithiasis. Liver, spleen, and pancreas imaging no acute findingsgiven compromised evaluation without intravenous contrast. Normal adrenalglands. Atrophic kidneys. Inferior pole right renal lesion measuring 2.2 cm withcystic component. However, a portion lesion at the medial, inferior aspect ishigher in attenuation than fluid. Small volume ascites throughout the abdomen and pelvis. There is aperitoneal dialysis catheter curled in the pelvis. No free intraperitoneal air. Nobowel obstruction. Severe calcified plaque of normal caliber abdominal aorta and commoniliac arteries. Moderate calcified plaque of bilateral internal iliac arteries.Mild calcified plaque of bilateral external iliac arteries. Small fat-containing right inguinal hernia. Mild body wall edema.Presacral edema. No evidence for enlarged lymph nodes in the abdomen or pelvis givencompromised evaluation without intravenous contrast. No acute osseous abnormality. IMPRESSION: 1. Indeterminate inferior pole right renal lesion. Neoplasm is notexcluded, and MRI or CT of the kidneys with and without contrast is recommended forfurther evaluation. 2. Vascular calcifications as detailed above. 3. Small volume ascites and mild body wall edema. 4. CT chest is reported separately. All CT scans at this facility use dose modulation, iterativereconstruction, and/or weight based dosing when appropriate to reduce radiation dose to aslow as reasonably achievable. Electronically signed: Jeremy Marshall. us Samer Lilia [facility] CT PROCEDURES Final Result * CT chest wo IV contrast (08/30/2024 12:55 PM EDT) Anatomical Region Laterality Modality Body, Chest Computed Tomogra phy 09/01/2024 12:3 5 PM EDT Impressions 09/01/2024 12:39 PM EDT * Small pulmonary nodules as detailed above measuring 4 mm or less, optional twelve-month follow-up CT could be obtained in a high-risk patient. Low risk patient requires no follow-up. * Pleural thickening right hemithorax with areas of scarring. * Please see above for further details. Electronically signed: Esteban Orozco MD. Narrative 09/01/2024 12:[address] CHEST WO IV CONTRAST CLINICAL INFORMATION: Lung nodule. COMPARISON: None. PROCEDURE: Routine CT chest obtained without contrast. Multiplanar reformats obtained from the axial data. Automated exposure control was utilized. All CT scans at this facility use dose modulation, iterative reconstruction, and/or weight based dosing when appropriate to reduce radiation dose to as low as reasonably achievable. FINDINGS: Gynecomastia. Scarring and fibrosis in the right lung parenchyma. Calcified granulomas are present. There is a nodule at the left lung base measuring about 4 mm. Other smaller nodules in the left lung measuring 2 mm or less. Right-sided pleural effusion which may be loculated with pleural thickening. No left effusion. Atherosclerotic calcifications in the aorta. Severe coronary artery calcifications with possible stents. Pulmonary arteries are of normal caliber. No enlarged lymph nodes. Degenerative changes. Procedure Note Esteban Orozco MD - 09/01/2024 CT CHEST WO IV CONTRAST CLINICAL INFORMATION: Lung nodule. COMPARISON: None. PROCEDURE: Routine CT chest obtained without contrast. Multiplanarreformats obtained from the axial data. Automated exposure control was utilized. All CT scans at this facility use dose modulation, iterativereconstruction, and/or weight based dosing when appropriate to reduce radiation dose to aslow as reasonably achievable. FINDINGS: Gynecomastia. Scarring and fibrosis in the right lung parenchyma.Calcified granulomas are present. There is a nodule at the left lung base measuringabout 4 mm. Other smaller nodules in the left lung measuring 2 mm or less.Right-sided pleural effusion which may be loculated with pleural thickening. No left effusion. Atherosclerotic calcifications in the aorta. Severe coronaryartery calcifications with possible stents. Pulmonary arteries are of normalcaliber. No enlarged lymph nodes. Degenerative changes. IMPRESSION: *Small pulmonary nodules as detailed above measuring 4 mm or less,optional twelve-month follow-up CT could be obtained in a high-risk patient. Lowrisk patient requires no follow-up. *Pleural thickening right hemithorax with areas of scarring. *Please see above for further details. Electronically signed: Esteban Orozco MD. us Samemarisol Rodrigues MD IMG CT PROCEDURES Final Result * XR chest 2 views (08/30/2024 12:52 PM EDT) Anatomical Region Laterality Modality Chest Computed Radiogr aphy 08/30/2024 2:04 PM EDT Impressions 08/30/2024 2:50 PM EDT Small right pleural effusion. Approved by:Louis Chairez08/30/2024 2:07 PM. IDangelo,have reviewed the image(s) and agree with the findings in this report. Electronically signed: Dangelo Al. Narrative 08/30/2024 2:50 PM EDT XR CHEST 2 VIEWS HISTORY: End-stage renal disease. Kidney transplant evaluation. COMPARISON: 02/06/2020 FINDINGS: PA and lateral upright films obtained. The cardiomediastinal silhouette is unremarkable. No no focal consolidation or discrete pneumothorax. Small right pleural effusion. Slightly exaggerated thoracic kyphosis. Procedure Note Dangelo Al MD - 08/30/2024 XR CHEST 2 VIEWS HISTORY: End-stage renal disease. Kidney transplant evaluation. COMPARISON: 02/06/2020 FINDINGS: PA and lateral upright films obtained. The cardiomediastinal silhouette is unremarkable. No no focalconsolidation or discrete pneumothorax. Small right pleural effusion. Slightlyexaggerated thoracic kyphosis. IMPRESSION: Small right pleural effusion. Approved by:Louis Chairez08/30/2024 2:07 PM. I, Dangelo Al,have reviewed the image(s) and agree with the findings inthis report. Electronically signed: Dangelo Al. West Rodrigues MD IMG XR PROCEDURES Final Result * QUANTIFERON TB GOLD (08/30/2024 12:31 PM EDT) QUANTIFERON TB GOLD PLUS Negative Negative 08/31/2024 10:56 AM EDT [facility] ([facility]) Comment: Liaison Quantiferon TB Gold Plus Interpretation (IU/mL): NEGATIVE: M. tuberculosis infection not likely. Nil: <=8.0 TB1 Antigen minus Nil ([id number]): <0.35; OR >=0.35 and <25% of Nil value. TB2 Antigen minus Nil ([id number]): <0.35; OR >=0.35 and <25% of Nil value. Mitogen minus Nil: >=0.5 MITOGEN MINUS NIL 6.91 IU/mL 025 10:56 AM EDT [facility] ([facility]) TB1 MINUS NIL -0.01 IU/mL 08/31/2024 10:56 AM EDT [facility] ([facility]) TB2 MINUS NIL -0.01 IU/mL 08/31/2024 10:56 AM EDT [facility] ([facility]) NIL DIASORIN 0.05 IU/mL 08/31/2024 10:56 AM EDT [facility] ([facility]) Blood Venous blood specimen / Unknown Venipuncture / Unknown 08/30/2024 12:31 PM EDT 08/30/2024 12:43 PM EDT West Rodrigues MD LAB BLOOD ORDERABLES Final Resul t [facility] ([facility]) [address] [place] [address] * HLA ABC class I typing (08/30/2024 12:31 PM EDT) Tested Date [id number] 1:58 PM EDT [facility] TISSUE TYPING ([facility]) A-1 2 09/01/2024 1:58 PM EDT [facility] TISSUE TYPING ([facility]) A-2 3 09/01/2024 1:58 PM EDT [facility] TISSUE TYPING ([facility]) B-1 8 09/01/2024 1:58 PM EDT [facility] TISSUE TYPING ([facility]) B-2 44 09/01/2024 1:58 PM EDT [facility] TISSUE TYPING ([facility]) Bw-1 4 09/01/2024 1:58 PM EDT [facility] TISSUE TYPING ([facility]) Bw-2 6 09/01/2024 1:58 PM EDT [facility] TISSUE TYPING ([facility]) C-1 5 09/01/2024 1:58 PM EDT [facility] TISSUE TYPING ([facility]) C-2 7 09/01/2024 1:58 PM EDT [facility] TISSUE TYPING ([facility]) Test Method Class I typing by PCR-SSOP Luminex 09/01/2024 1:58 PM EDT [facility] TISSUE TYPING ([facility]) Signed By Signed by Gopal Ortiz CHT([facility]) SAMEER(ASCP), Food Service Tray Attendant Transplant Immunology 09/01/2024 1:58 PM EDT [facility] TISSUE TYPING ([facility]) Blood Venous blood specimen / Unknown Venipuncture / Unknown 08/30/2024 12:31 PM EDT 08/30/2024 12:48 PM EDT us West Rodrigues MD LAB BLOOD ORDERABLES Final Resul t [facility] TISSUE TYPING ([facility]) [address] [place] [address], [place] [phone] * Panel reactive antibody (08/30/2024 12:31 PM EDT) Extra Tube Hold for add-ons. 08/30/2024 2:38 PM EDT [facility] TISSUE TYPING ([facility]) Comment:Auto resulted. Blood Venous blood specimen / Unknown Venipuncture / Unknown 08/30/2024 12:31 PM EDT 08/30/2024 12:42 PM EDT us West Rodrigues MD LAB BLOOD ORDERABLES Final Resul t [facility] TISSUE TYPING ([facility]) [address] [place] [address], [place] [phone] * HLA DR class II typing (08/30/2024 12:31 PM EDT) Tested Date [id number] 2:13 PM EDT [facility] TISSUE TYPING ([facility]) DRB1-1 17 09/01/2024 2:13 PM EDT [facility] TISSUE TYPING ([facility]) DRB1-2 12 09/01/2024 2:13 PM EDT [facility] TISSUE TYPING ([facility]) DRB3-1 52 09/01/2024 2:13 PM EDT [facility] TISSUE TYPING ([facility]) DRB3-2 52 09/01/2024 2:13 PM EDT [facility] T[facility]UE TYPING ([facility]) DQA1-1 05 09/01/2024 2:13 PM EDT [facility] TISSUE TYPING ([facility]) DQB1-1 2 09/01/2024 2:13 PM EDT [facility] TISSUE TYPING ([facility]) DQB1-2 7 09/01/2024 2:13 PM EDT [facility] TISSUE TYPING ([facility]) DPB1-1 04:01 09/01/2024 2:13 PM EDT [facility] TISSUE TYPING ([facility]) Test Method Class II typing by PCR-SSOP Luminex 09/01/2024 2:13 PM EDT [facility] TISSUE TYPING ([facility]) Signed By Signed by Gopal Ortiz CHT([facility]) SAMEER(ASCP), Food Service Tray Attendant Transplant Immunology 09/01/2024 2:13 PM EDT [facility] TISSUE TYPING ([facility]) Blood Venous blood specimen / Unknown Venipuncture / Unknown 08/30/2024 12:31 PM EDT 08/30/2024 12:48 PM EDT West Rodrigues MD LAB BLOOD ORDERABLES Final Resul t Performing Organization Address City/[facility]/ZIP Co de Phone Number [facility] TISSUE TYPING ([facility]) [address] [place] [address], [place] [phone] * Single antigen class II (08/30/2024 12:31 PM EDT) Tested Date [id number] 5:40 PM EDT [facility] TISSUE TYPING ([facility]) cPRA 0 09/05/2024 5:40 PM EDT [facility] TISSUE TYPING ([facility]) Comments No Specificites Found 09/05/2024 5:40 PM EDT [facility] TISSUE TYPING ([facility]) Test Method Class II Single Antigen 09/05/2024 5:40 PM EDT [facility] TISSUE TYPING ([facility]) Comment:Class II Antigen Spencer alexis Signed By Signed by Gopal Ortiz CHT([facility]) SAMEER(ASCP), Food Service Tray Attendant Transplant Immunology 09/05/2024 5:40 PM EDT [facility] TISSUE TYPING ([facility]) Blood Venous blood specimen / Unknown Venipuncture / Unknown 08/30/2024 12:31 PM EDT 08/30/2024 12:42 PM EDT Gopal Stevens MD LAB BLOOD ORDERABLES Final Resul t [facility] TISSUE TYPING ([facility]) [address] [place] [address], [place] [phone] * Single antigen class I (08/30/2024 12:31 PM EDT) Tested Date [id number] 5:40 PM EDT [facility] TISSUE TYPING ([facility]) cPRA 0 09/05/2024 5:40 PM EDT [facility] TISSUE TYPING ([facility]) Test Method Class I Single Antigen 09/05/2024 5:40 PM EDT [facility] TISSUE TYPING ([facility]) Signed By Signed by Gopal Ortiz [facility]) SAMEER(ASCP), Food Service Tray Attendant Transplant Immunology 09/05/2024 5:40 PM EDT [facility] TISSUE TYPING ([facility]) Comment:Class I Antigen Micr obeads Class I Low Risk Ab A:23 09/05/2024 5:40 PM EDT [facility] TISSUE TYPING ([facility]) Comments Potential specificites added to the watch list. 09/05/2024 5:40 PM EDT [facility] TISSUE TYPING ([facility]) Blood Venous blood specimen / Unknown Venipuncture / Unknown 08/30/2024 12:31 PM EDT 08/30/2024 12:42 PM EDT Gopal Stevens MD LAB BLOOD ORDERABLES Final Resul t Performing Organization Address City/[facility]/ZIP Co de Phone Number [facility] TISSUE TYPING ([facility]) [address] [place] [address], * HIV COMBO 4G (08/30/2024 12:31 PM EDT) HIV Combo 4G Negative Negative 08/30/2024 2:09 PM EDT [facility] ([facility]) Blood Venous blood specimen / Unknown Venipuncture / Unknown 08/30/2024 12:31 PM EDT 08/30/2024 12:48 PM EDT West Rodrigues MD LAB BLOOD ORDERABLES Final Resul t [facility] ([facility]) [address] [place] [address] * Hepatitis B surface antibody quant (08/30/2024 12:31 PM EDT) Hepatitis B Surface Ab 0.36 mIU/mL 08/30/2024 3:50 PM EDT [facility] ([facility]) Comment: INTERPRETATION: NONREACTIVE <8.00 mIU/mL INDETERMINATE 8.00 - 12.00 mIU/mL REACTIVE >12 mIU/mL Blood Venous blood specimen / Unknown Venipuncture / Unknown 08/30/2024 12:31 PM EDT 08/30/2024 12:47 PM EDT eWst Rodrigues MD LAB BLOOD ORDERABLES Final Resul t Performing Organization Address [facility] Co de Phone Number [facility]) [address] [place] [address] * Mumps antibody IgG (08/30/2024 12:31 PM EDT) MUMPS IGG ANTIBODY 132.0 AU/mL 2024 6:19 PM EDT [facility] ([facility]) Comment: NORMAL RANGES: < 9.0 NEGATIVE; NO DETECTABLE IgG ANTIBODY TO MUMPS. >= 9.0 AND < 11.0 EQUIVOCAL; REPEAT TESTING SUGGESTED. >= 11.0 POSITIVE; INDICATES PRESENCE OF DETECTABLE IgG ANTIBODY TO MUMPS. Mumps IgG Ab Interpretation Positive 08/30/2024 6:19 PM EDT [facility] ([facility]) Blood Venous blood specimen / Unknown Venipuncture / Unknown 08/30/2024 12:31 PM EDT 08/30/2024 12:47 PM EDT West Rodrigues MD LAB BLOOD ORDERABLES Final Resul t Performing Organization Address [facility] Co de Phone Number [facility]) [address] [place] [address] * Varicella zoster antibody, IgG (08/30/2024 12:31 PM EDT) VZV IgG Ab 2,833.0 Index 08/30/2024 6:19 PM EDT [facility]) Comment: NORMAL RANGES: < 135 NEGATIVE; NO DETECTABLE IgG ANTIBODY TO VARICELLA-ZOSTER VIRUS. >= 135.0 AND < 165.0 EQUIVOCAL; REPEAT TESTING SUGGESTED. >= 165.0 POSITIVE; INDICATES PRESENCE OF DETECTABLE IgG ANTIBODY TO VARICELLA-ZOSTER VIRUS. VZV IgG Ab Interpretation Positive 08/30/2024 6:19 PM EDT [facility] ([facility]) Blood Venous blood specimen / Unknown Venipuncture / Unknown 08/30/2024 12:31 PM EDT 08/30/2024 12:47 PM EDT West Rodrigues MD LAB BLOOD ORDERABLES Final Resul t [facility] ([facility]) [address] [place] [address] * Testosterone, free and total, and SHBG (08/30/2024 12:31 PM EDT) Testosterone 353 193 - 740 ng/dL 08/30/2024 6:39 PM EDT [facility] Sex Hormone Binding 54 19 - 76 nmol/L 08/30/2024 6:39 PM EDT [facility] Testosterone, Free 50.9 47.0 - 244.0 pg/mL 08/30/2024 6:39 PM EDT [facility] Comment: The concentration of free testosterone is derived from a mathematical expression based on the constant for the binding of testosterone to albumin and/or sex hormone binding globulin. Test Performed by [facility] [address] [place] [address] [phone] - [employer] 08/30/2024 18:39 Blood Venous blood specimen / Unknown Venipuncture / Unknown 08/30/2024 12:31 PM EDT 08/30/2024 12:47 PM EDT West Rodrigues MD LAB BLOOD ORDERABLES Final Resul t [facility] [address] [place] [address] * (ABNORMAL) CBC auto differential (08/30/2024 12:31 PM EDT) Auto WBC 9.95 4.00 - 10.60 10*3/uL 08/30/2024 12:58 PM EDT [facility] ([facility]) RBC 3.03(L) 4.20 - 5.70 10*6/uL 08/30/2024 12:58 PM EDT [facility] ([facility]) Hemoglobin 9.3(L) 13.0 - 17.0 g/dL 08/30/2024 12:58 PM EDT [facility] ([facility]) Hematocrit 27.5(L) 39.0 - 50.0 % 08/30/2024 12:58 PM EDT [facility] ([facility]) MCV 90.8 82.0 - 98.0 fL 08/30/2024 12:58 PM EDT [facility] ([facility]) MCH 30.7 27.0 - 33.0 pg 08/30/2024 12:58 PM T [facility] ([facility]) MCHC 33.8 32.0 - 35.0 g/dL 08/30/2024 12:58 PM T [facility] ([facility]) RDW 13.9 11.5 - 15.0 % 08/30/2024 12:58 PM T [facility] ([facility]) Neutrophils % 78.9(H) 40.0 - 72.0 % 08/30/2024 12:58 PM EDT [facility] ([facility]) Lymphocytes % 11.9(L) 20.0 - 45.0 % 08/30/2024 12:58 PM EDT [facility] ([facility]) Monocytes % 6.9 5.0 - 12.0 % 08/30/2024 12:58 PM T [facility] ([facility]) Eosinophils % 1.6 0.0 - 6.0 % 08/30/2024 12:58 PM EDT [facility] ([facility]) Basophils % 0.3 0.0 - 1.0 % 08/30/2024 12:58 PM T [facility] ([facility]) Neutrophils Absolute 7.85(H) 1.60 - 7.60 10*3/uL 08/30/2024 12:58 PM EDT [facility] ([facility]) Lymphocytes Absolute 1.18(L) 1.20 - 4.00 10*3/uL 08/30/2024 12:58 PM EDT [facility] ([facility]) Monocytes Absolute 0.69 0.10 - 1.00 10*3/uL 08/30/2024 12:58 PM EDT [facility] ([facility]) Eosinophils Absolute 0.16 0.00 - 0.50 10*3/uL 08/30/2024 12:58 PM EDT [facility] ([facility]) Basophils Absolute 0.03 0.00 - 0.20 10*3/uL 08/30/2024 12:58 PM EDT [facility] ([facility]) Platelets 167 150 - 400 10*3/uL 08/30/2024 12:58 PM EDT [facility] ([facility]) nRBC % 0.0 0 % 08/30/2024 12:58 PM EDT [facility] ([facility]) Immature Granulocytes % 0.4 0.0 - 1.0 % 08/30/2024 12:58 PM EDT [facility] ([facility]) Immature Granulocytes Absolute 0.04 0.00 - 0.20 10*3/uL 08/30/2024 12:58 PM EDT [facility] ([facility]) Blood Venous blood specimen / Unknown Venipuncture / Unknown 08/30/2024 12:31 PM EDT 08/30/2024 12:48 PM EDT West Rodrigues MD LAB BLOOD ORDERABLES Final Resul t [facility]) [address] [place] [address] * Hepatitis C antibody (08/30/2024 12:31 PM EDT) Hepatitis C Ab Nonreactive Nonreactive 08/30/2024 3:51 PM EDT [facility] ([facility]) Blood Venous blood specimen / Unknown Venipuncture / Unknown 08/30/2024 12:31 PM EDT 08/30/2024 12:47 PM EDT West Rodrigues MD LAB BLOOD ORDERABLES Final Resul t [facility]) [address] [place] [address] * (ABNORMAL) Neelam-Magana virus VCA antibody panel (08/30/2024 12:31 PM EDT) EBV VCA IgG Interpretation Positive 09/01/2024 11:06 AM EDT [facility] ([facility]) NEELAM-MAGANA VIRUS VCA IGG 635.0 U/mL 09/01/2024 11:06 AM EDT [facility] ([facility]) EBV VCA IGM INTERPRETATION Positive(A) Negative 09/01/2024 11:06 AM EDT [facility] ([facility]) NEELAM-MAGANA VIRUS VCA IGM 60.2(H) < 36.0 U/mL U/mL 09/01/2024 11:06 AM EDT [facility] ([facility]) Comment: NORMAL RANGE < 36.0 NEGATIVE ; NO SIGNIFICANT LEVEL OF DETECTABLE EBV-VCA IgM AB >= 36.0 AND < 44.0 EQUIVOCAL; REPEAT TESTING SUGGESTED >= 44.0 POSITIVE ; SIGNIFICANT LEVEL OF DETECTABLE EBV-VCA IgM AB Blood Venous blood specimen / Unknown Venipuncture / Unknown 08/30/2024 12:31 PM EDT 08/30/2024 12:47 PM EDT Narrative [facility] ([facility]) - 09/01/2024 11:06 AM EDT Consistent with current or recent EBV infection. West Rodrigues MD LAB BLOOD ORDERABLES Final Resul t [facility]) [address] [place] [address] * Hepatitis A antibody, IgM (08/30/2024 12:31 PM EDT) Hep A IgM Nonreactive Nonreactive 08/30/2024 3:51 PM EDT [facility] ([facility]) Blood Venous blood specimen / Unknown Venipuncture / Unknown 08/30/2024 12:31 PM EDT 08/30/2024 12:47 PM EDT West Rodrigues MD LAB BLOOD ORDERABLES Final Resul t [facility] ([facility]) [address] [place], [place] [id number] * Rubeola antibody IgG (08/30/2024 12:31 PM EDT) Measles IgG Antibody Interpretation Positive 08/30/2024 6:19 PM EDT [facility] ([facility]) MEASLES IGG ANTIBODY >300.0 AU/mL 08/30/2024 6:19 PM EDT [facility] ([facility]) Comment: NORMAL RANGES: < 13.5 NEGATIVE; NO DETECTABLE IgG ANTIBODY TO RUBEOLA (MEASLES). >= 13.5 AND < 16.5 EQUIVOCAL; REPEAT TESTING SUGGESTED. >= 16.5 POSITIVE; INDICATES PRESENCE OF DETECTABLE IgG ANTIBODY TO RUBEOLA (MEASLES). Blood Venous blood specimen / Unknown Venipuncture / Unknown 08/30/2024 12:31 PM EDT 08/30/2024 12:47 PM EDT West Rodrigues MD LAB BLOOD ORDERABLES Final Resul t Performing Organization Address [facility] Co de Phone Number [facility]) [address] [place], [place] [id number] * Hepatitis B core antibody, IgM (08/30/2024 12:31 PM EDT) Pathologist [facility] Hep B Core Ab IgM Negative Negative 09/04/2024 11:41 AM EDT [facility]) Comment: INTERPRETIVE INFORMATION: Hepatitis B Core Ab, IgM This assay should not be used for blood donor screening, associated re-entry protocols, or for screening Human Cells, Tissues and Cellular and Tissue-Based Products (HCT/P). Performed By: [facility] [address] [place] [address] Drawer Upfitter: Cody Gurrola MD, PhD CLIA Number: [id number] Blood Venous blood specimen / Unknown Venipuncture / Unknown 08/30/2024 12:31 PM EDT 08/30/2024 12:47 PM EDT West Rodrigues MD LAB BLOOD ORDERABLES Final Resul t [facility] ([facility]) [address] [place] [address] * Hepatitis B core antibody, total (08/30/2024 12:31 PM EDT) [facility] Hep B Core Total Ab Nonreactive Nonreactive 08/30/2024 3:51 PM EDT [facility] ([facility]) Blood Venous blood specimen / Unknown Venipuncture / Unknown 08/30/2024 12:31 PM EDT 08/30/2024 12:47 PM EDT West Rodrigues MD LAB BLOOD ORDERABLES Final Resul t Performing Organization Address [facility] Co de Phone Number [facility] ([facility]) [address] [place], [place] [phone] * CMV IgM (08/30/2024 12:31 PM EDT) [facility] Cytomegalovirus IgM Ab Interpretation Negative Negative 09/06/2024 2:08 PM EDT [facility] ([facility]) CYTOMEGALOVIRUS IGM ANTIBODY <8.0 < 30.0 AU/mL AU/mL 09/06/2024 2:08 PM EDT [facility] ([facility]) Blood Venous blood specimen / Unknown Venipuncture / Unknown 08/30/2024 12:31 PM EDT 08/30/2024 12:47 PM EDT West Rodrigues MD LAB BLOOD ORDERABLES Final Resul t Performing Organization Address [facility]/ZIP Co de Phone Number [facility]) [address] [place] [address] * (ABNORMAL) C-peptide (08/30/2024 12:31 PM EDT) [facility] C-Peptide 14.5(H) 0.5 - 3.3 ng/mL 09/01/2024 12:14 AM EDT [facility] ([facility]) Comment: INTERPRETIVE INFORMATION: Serum, C-Peptide Reference Interval applies to fasting specimens. To convert to nmol/L, multiply by 0.33 Performed By: [facility] [address] [place] [address] Drawer Upfitter: Cody Gurrola MD, PhD CLIA Number: [id number] Blood Venous blood specimen / Unknown Venipuncture / Unknown 08/30/2024 12:31 PM EDT 08/30/2024 12:47 PM EDT West Rodrigues MD LAB BLOOD ORDERABLES Final Resul t Performing Organization Address [facility] Co de Phone Number [facility] ([facility]) [address] [place] [address] * Rubella antibody, IgG (08/30/2024 12:31 PM EDT) RUBELLA IGG ANTIBODY 0.81 Index 08/30/2024 6:19 PM EDT [facility] ([facility]) Comment: NORMAL RANGES: < 0.90 NEGATIVE; NO DETECTABLE IgG ANTIBODY TO RUBELLA. >= 0.90 AND < 1.00 EQUIVOCAL; REPEAT TESTING SUGGESTED. >= 1.00 POSITIVE; INDICATES PRESENCE OF DETECTABLE IgG ANTIBODY TO RUBELLA VIRUS. Rubella IgG Antibody Interpretation Negative 08/30/2024 6:19 PM EDT [facility] ([facility]) Blood Venous blood specimen / Unknown Venipuncture / Unknown 08/30/2024 12:31 PM EDT 08/30/2024 12:47 PM EDT West Rodrigues MD LAB BLOOD ORDERABLES Final Resul t [facility] ([facility]) [address] [place] [address] * Hepatitis B surface antigen (08/30/2024 12:31 PM EDT) Hepatitis B Surface Ag Nonreactive Nonreactive 08/30/2024 3:50 PM EDT [facility] ([facility]) Blood Venous blood specimen / Unknown Venipuncture / Unknown 08/30/2024 12:31 PM EDT 08/30/2024 12:47 PM EDT us West Rodrigues MD LAB BLOOD ORDERABLES Final Resul t [facility]) [address] [place] [address] * Cytomegalovirus antibody, IgG (08/30/2024 12:31 PM EDT) Pathologist [facility] Cytomegalovirus IgG Ab Interpretation Negative 09/01/2024 10:58 AM EDT [facility] ([facility]) CYTOMEGALOVIRUS IGG ANTIBODY <0.20 U/mL 09/01/2024 10:58 AM EDT [facility] ([facility]) Comment: NORMAL RANGES: < 0.60 NEGATIVE ; NO DETECTABLE IgG ANTIBODY TO CMV >= 0.60 and < 0.70 EQUIVOCAL; REPEAT TESTING SUGGESTED >= 0.70 POSITIVE ; INDICATES PRESENCE OF DETECTABLE IgG ANTIBODY TO CM Blood Venous blood specimen / Unknown Venipuncture / Unknown 08/30/2024 12:31 PM EDT 08/30/2024 12:47 PM EDT us West Rodrigues MD LAB BLOOD ORDERABLES Final Resul t Performing Organization Address [facility]/ZIP Co de Phone Number [facility]) [address] [place] [address] * Protime-INR (08/30/2024 12:31 PM EDT) Pathologist [facility] Protime 12.7 12.3 - 14.8 Seconds 08/30/2024 1:08 PM EDT [facility] ([facility]) INR 0.95 0.90 - 1.10 08/30/2024 1:08 PM EDT [facility] ([facility]) Comment: [facility] RECOMMENDED INR FOR [facility] THERAPY CONDITION INR PROPHYLAXIS OF VENOUS THROMBOSIS 2-3 (HIGH-RISK SURGERY) TREATMENT OF VENOUS THROMBOSIS 2-3 TREATMENT OF PULMONARY EMBOLISM 2-3 PREVENTION OF SYSTEMIC EMBOLISM: 2-3 ACUTE MYOCARDIAL INFARCTION TISSUE HEART VALVES VALVULAR HEART DISEASE ATRIAL FIBRILLATION RECURRENT SYSTEMIC EMBOLISM MECHANICAL HEART VALVE 2.5-3.5 FROM: ORAL ANTICOAGULANTS. MECHANISM OF ACTION, CLINICAL EFFECTIVENESS, AND OPTIMAL THERAPEUTIC RANGE. CHEST 1995;108:231S-246S. Blood Venous blood specimen / Unknown Venipuncture / Unknown 08/30/2024 12:31 PM EDT 08/30/2024 12:42 PM EDT West Rodrigues MD LAB BLOOD ORDERABLES Final Resul t [facility] ([facility]) [address] [place] [address] * Type and screen (08/30/2024 12:31 PM EDT) ABO Grouping A 08/30/2024 2:11 PM EDT [facility]OD [facility] Rh Type POS 08/30/2024 2:11 PM EDT [facility] Ab Scrn NEG 08/30/2024 2:11 PM EDT [facility] Blood Venous blood specimen / Unknown Venipuncture / Unknown 08/30/2024 12:31 PM EDT 08/30/2024 12:42 PM EDT West Rodrigues MD LAB BLOOD BANK TEST ORDERABLES F inal Result [facility] B[facility]OD [facility] * PSA, Screening (08/30/2024 12:31 PM EDT) PSA 0.6 0.4 - 4 ng/mL 08/30/2024 1:19 PM EDT [facility] ([facility]) Blood Venous blood specimen / Unknown Venipuncture / Unknown 08/30/2024 12:31 PM EDT 08/30/2024 12:47 PM EDT West Rodrigues MD LAB BLOOD ORDERABLES Final Resul t [facility]) [address] [place] [address] * (ABNORMAL) B-type natriuretic peptide (08/30/2024 12:31 PM EDT) BNP 549(H) 0 - 100 pg/mL 08/30/2024 1:16 PM EDT [facility] ([facility]) Blood Venous blood specimen / Unknown Venipuncture / Unknown 08/30/2024 12:31 PM EDT 08/30/2024 12:48 PM EDT us West Rodrigues MD LAB BLOOD ORDERABLES Final Resul t Performing Organization Address [facility] Co de Phone Number [facility]) [address] [place] [id number] * (ABNORMAL) Hemoglobin A1c (08/30/2024 12:31 PM EDT) Hemoglobin A1C 7.0(H) 4.0 - 6.0 % 08/31/2024 8:15 AM EDT [facility] ([facility]) Estimated Average Glucose 154 mg/dL 08/31/2024 8:15 AM EDT [facility]) Blood Venous blood specimen / Unknown Venipuncture / Unknown 08/30/2024 12:31 PM EDT 08/30/2024 12:48 PM EDT West Rodrigues MD LAB BLOOD ORDERABLES Final Resul t [facility]) [address] [place] [address] * Bilirubin, direct (08/30/2024 12:31 PM EDT) Bilirubin, Direct 0.1 0 - 0.2 mg/dL 08/30/2024 1:11 PM EDT [facility] ([facility]) Blood Venous blood specimen / Unknown Venipuncture / Unknown 08/30/2024 12:31 PM EDT 08/30/2024 12:47 PM EDT us West Rodrigues MD LAB BLOOD ORDERABLES Final Resul t [facility] ([facility]) [address] [place] [address] * (ABNORMAL) Lipid panel (08/30/2024 12:31 PM EDT) Triglycerides 198(H) <150 mg/dL 08/30/2024 1:11 PM EDT [facility] ([facility]) Comment: TRIGLYCERIDE REFERENCE RANGE: 20 YEARS AND OLDER CARDIOVASCULAR RISK LESS THAN 150 mg/dL LOW RISK 150 TO 199 mg/dL BORDERLINE RISK 200 mg/dL AND GREATER HIGH RISK Cholesterol 124 120 - 200 mg/dL 08/30/2024 1:11 PM EDT [facility] ([facility]) LDL Calculated 57 0 - 160 mg/dL 08/30/2024 1:11 PM EDT [facility] ([facility]) HDL 27 23 - 92 mg/dL 08/30/2024 1:11 PM EDT [facility] ([facility]) Non HDL Cholesterol 97 08/30/2024 1:11 PM EDT [facility] ([facility]) Total VLDL-C 40 0 - 40 mg/dL 08/30/2024 1:11 PM EDT [facility] ([facility]) Cholesterol/HDL Ratio 4.6 mg/dL 08/30/2024 1:11 PM EDT [facility] ([facility]) Blood Venous blood specimen / Unknown Venipuncture / Unknown 08/30/2024 12:31 PM EDT 08/30/2024 12:47 PM EDT us Samemarisol Rodrigues MD LAB BLOOD ORDERABLES Final Resul t [facility] ([facility]) [address] [place] [address] * (ABNORMAL) Comprehensive metabolic panel (08/30/2024 12:31 PM EDT) Sodium 140 136 - 145 mmol/L 08/30/2024 1:11 PM EDT [facility] ([facility]) Potassium 3.8 3.5 - 5.1 mmol/L 08/30/2024 1:11 PM EDT [facility] ([facility]) Chloride 99 98 - 107 mmol/L 08/30/2024 1:11 PM EDT [facility] ([facility]) CO2 30 21 - 31 mmol/L 08/30/2024 1:11 PM EDT [facility] ([facility]) Anion Gap 15 7 - 20 mmol/L 08/30/2024 1:11 PM EDT [facility] ([facility]) BUN 40(H) 7 - 25 mg/dL 08/30/2024 1:11 PM EDT [facility] ([facility]) Creatinine 10.34(H) 0.70 - 1.30 mg/dL 08/30/2024 1:11 PM EDT [facility] ([facility]) BUN/Creatinine Ratio 3.9 08/20 1:11 PM EDT [facility] ([facility]) Glucose 148(H) 70 - 100 mg/dL 08/30/2024 1:11 PM EDT [facility] ([facility]) Calcium 8.6 8.6 - 10.3 mg/dL 08/30/2024 1:11 PM EDT [facility] ([facility]) AST 13 13 - 39 U/L 08/30/2024 1:11 PM EDT [facility] ([facility]) ALT (SGPT) 17 7 - 52 U/L 08/30/2024 1:11 PM EDT [facility] ([facility]) Alkaline Phosphatase 115(H) 34 - 104 U/L 08/30/2024 1:11 PM EDT [facility] ([facility]) Total Protein 6.6 6.0 - 8.3 g/dL 08/30/2024 1:11 PM EDT [facility] ([facility]) Albumin 3.3(L) 3.5 - 5.7 g/dL 08/30/2024 1:11 PM EDT [facility] ([facility]) Total Bilirubin 0.4 0.3 - 1.0 mg/dL 08/30/2024 1:11 PM EDT [facility] ([facility]) eGFR 5.2(L) >60.0 mL/min/1 .73m*2 08/30/2024 1:11 PM EDT [facility] ([facility]) Comment:The [facility] s estimated glomerular filtration rate (eGFR) will no longer include consideration of race in its calculation. The National Kid[employer] Foundation s eGFR Task Force developed new recommendations for the estimation of the glomerular filtration rate in the [place] They recommend immediate implementation of the new equation refit without the race variable in all laboratories because the calculation does not include race. In addition to not including race in the calculation and reporting, it included diversity in its development, and has acceptable performance characteristics and potential consequences that do not disproportionately affect any one group of individuals. Blood Venous blood specimen / Unknown Venipuncture / Unknown 08/30/2024 12:31 PM EDT 08/30/2024 12:47 PM EDT us West Rodrigues MD LAB BLOOD ORDERABLES Final Resul t [facility] ([facility]) [address] [place] [address] from Last 3 Months Insurance [place] MEDICARE [place] Care Teams Fire Extinguisher Repairer Relationship Specialty Start Date End Date Pierce Cartwright MD [facility] [place] [address] PCP - General 12/11/21 Gopal Stevens MD [address] [place] [address] [place] [phone] Consulting Physician Urology 08/30/24 Nephrology Consulting Physician Nephrology 01/12/22
--- OUTSIDE RECORDS SUMMARY | 2024-10-17 10:14 | XMS_ITS | Encounter Summary ---
Author Organization [facility] Address [address] [place] [address] Care Team Providers Care Bottom Saw Operator Name Role Phone Pierce Cartwright MD Primary Care Provider [phone] Franklin Stevens MD Unavailable Reason for Visit * Reason Comments Med Refill Encounter Details Date Type Department Care Team (Late st Contact Info) Description 02/08/2023 Refill [facility] Heart at [facility] [address] [place] [address] Jeffery Sosa MD [address] [facility] [place] [address] Chest pain, unspecified type Social History Tobacco Use Types Packs/Day Years Used Date Smoking Tobacco: Former Cigarettes Smokeless Tobacco: Never Alcohol Use Standard Drinks/Week Comments Not Currently 0 (1 standard drink = 0.6 oz pur e alcohol) Sex and Gender Information Value Date Recorded Sex Assigned at Male 10/04/2024 10:31 AM EDT Legal Sex Male 9:41 PM EDT Gender Identity Male 10/04/2024 10:31 AM EDT Sexual Orientation Heterosexual or Straight 09/19 10:31 AM EDT documented as of this encounter Plan of Treatment Upcoming Encounters Date Type Department Care Team (Late st Contact Info) Description 10/19/2024 12:30 PM EDT Hospital [facility] Lab [address] [place] [phone] Jeffery Sosa MD [address] [facility] [address] Abnormal cardiovascular stress test 10/19/2024 12:30 PM EDT - 10/19/2024 1:30 PM EDT Surgery [facility] [address] [place] [address] Jeffery Sosa MD [address] [facility] [address] [facility] [place] [address] Coronary angiography documented as of this encounter Visit Diagnoses Diagnosis Chest pain, unspecified type Abnormal cardiovascular stress test- Primary Other nonspecific abnormal cardiovascular system function study Abnormal cardiovascular stress test Other nonspecific abnormal cardiovascular system function study documented in this encounter Care Teams Bottom Saw Operator Relationship Specialty Start Date End Date Pierce Cartwright MD [facility] [place] [address] PCP - General 12/11/21 Franklin Stevens MD [address] [place] [address] Consulting Physician Urology 08/30/24 Nephrology Consulting Physician Nephrology 01/12/22 documented as of this encounter
--- OUTSIDE RECORDS SUMMARY | 2024-10-17 10:14 | XMS_ITS | Encounter Summary ---
Author Organization [facility] Address [address] [place] [address] Care Team Providers Care Youth Care Worker Name Role Phone Pierce Cartwright MD Primary Care Provider [phone] Reason for Visit * Reason Onset Date Comments Advice Only 10/09/2024 Keeping DM Shoes Encounter Details Date Type Department Care Team (Late st Contact Info) Description 10/09/2024 Telephone [facility] [address] [place] [phone] Galo Corado DPM [address] [place], [place] [phone] Advice Only (Keeping DM Shoes ) Social History Tobacco Use Types Packs/Day Years Used Date Smoking Tobacco: Never Smokeless Tobacco: Never Alcohol Use Standard Drinks/Week Comments Not Asked 0 (1 standard drink = 0.6 oz pure alcohol) caffeine intake:1-2 cups per day soda/pop Sex and Gender Information Value Date Recorded Sex Assigned at Not on file Legal Sex Male 9:34 PM EDT Gender Identity Not on file Sexual Orientation Not on file documented as of this encounter Miscellaneous Notes * Telephone Encounter - Zahira Vargas - 10/09/2024 2:44 PM EDT Pt likes his DM shoes and is keeping them. documented in this encounter Plan of Treatment Upcoming Encounters Date Type Department Care Team (Late st Contact Info) Description 12/11/2024 3:15 PM EDT Procedure Visit [facility] [address] [place] [phone] Selam Larsen DPM [address] [facility] [address] [place] [address] documented as of this encounter Visit Diagnoses Not on filedocumented in this encounter Care Teams Youth Care Worker Relationship Specialty Start Date End Date Pierce Cartwright MD [address] [facility] [place] [address] PCP - General Family Medicine 08/12/22 documented as of this encounter
--- OUTSIDE RECORDS SUMMARY | 2024-10-17 10:14 | XMS_ITS | Encounter Summary ---
Author Organization [facility] Address [address] [place] [address] Care Team Providers Care Wire Harness Assembler Name Role Phone Pierce Cartwright MD Primary Care Provider [phone] Franklin Stevens MD Unavailable Reason for Visit * Reason Comments Med Refill Encounter Details Date Type Department Care Team (Late st Contact Info) Description 03/10/2023 Refill [facility] Heart at [facility] [address] [place] [address] Ruth Zhang, POUCH MAKING MACHINE OPERATOR [address] [place] [address] Coronary artery disease, unspecified vessel or lesion type, unspecified whether angina present, unspecified whether havasupai or transplanted heart Social History Tobacco Use Types Packs/Day Years [...] Description 10/19/2024 12:30 PM EDT Hospital Encounter [facility] Heart and Vascular Center Vascular Lab [address] [place] [address] Jeffery Sosa MD [address] [facility] [address] [place] [address] Abnormal cardiovascular stress test 10/19/2024 12:30 PM EDT - 10/19/2024 1:30 PM EDT Surgery [facility] Heart and [facility] Center Vascular Lab [address] [place] [address] Jeffery Sosa MD [address] [place] [address] Coronary angiography documented as of this encounter Visit Diagnoses Diagnosis Coronary artery disease, unspecified vessel or lesion type, unspecified whether angina present, unspecified whether havasupai or transplanted heart Abnormal cardiovascular stress test- Primary Other nonspecific abnormal cardiovascular system function study Abnormal cardiovascular stress test Other nonspecific abnormal cardiovascular system function study documented in this encounter Care Teams Wire Harness Assembler Relationship Specialty Start Date End Date Pierce Cartwright MD [facility] [place] [address] PCP - General 12/11/21 Franklin Stevens MD [address] [place] [address] Consulting Physician Urology 08/30/24 Nephrology Consulting Physician Nephrology 01/12/22 documented as of this encounter
--- OUTSIDE RECORDS SUMMARY | 2024-10-17 10:14 | XMS_ITS ---
Author Organization [facility] Address [address] [place] [address] Care Team Providers Care Firer Low Pressure Name Role Phone Pierce Cartwright MD Primary Care Provider [phone] Franklin Stevens MD Unavailable Transplant Episode Kidney Candidate [facility] ([place], [place]) - [facility] Evaluation began on 08/30/2024 Marked as Active on 08/30/2024 Kidney CoordinatorPierce Ventura RN Phone: N/A Fax: N/A Email: N/A Scores Score Value Updated Exceptions/Reas ons CPRA Not available EPTS (Calc) 79 10/17/2024 [place] Organ Diagnosis Organ Primary Contributory Kidney Diabetes Mellitus - Type II Care Team Name Role Phone Fax Email Pierce Ventura RN Kidney Coordinator N/A N/A N/A Cristobal Butts MD Referring Physician [phone] N/A Dana Sommers Txp Textile Machine Operator N/A N/A N/A Franklin Stevens MD Transplant Physician [phone] N/A West Rodrigues MD Horticultural Therapist [phone] N/A Events Pre-Transplant Referred: 03/28/2024 Evaluation began: 08/30/2024 Dialysis History Dialysis History Start End Type Comments Center 06/17/2022 Peritoneal everyday [facility] [place] Dialysis Center Information Center Phone Fax Address [facility] [place]. [phone] [address] [facility] [address]
--- OUTSIDE RECORDS SUMMARY | 2024-10-17 10:14 | XMS_ITS | Encounter Summary ---
Author Organization [facility] Address [address] [place] [address] Care Team Providers Care Industrial Roofer Name Role Phone Pierce Cartwright MD Primary Care Provider [phone] Franklin Stevens MD Unavailable Reason for Visit * Reason Comments Med Refill Encounter Details Date Type Department Care Team (Late st Contact Info) Description 01/07/2023 Refill [facility] Heart at [facility] [address] [place] [address] Jeffery Sosa MD [address] [place] [address] Essential hypertension Social History Tobacco Use Types Packs/Day Years [...] Description 10/19/2024 12:30 PM EDT Hospital Encounter [facility] Heart and Vascular Center Vascular Lab [address] [place] [phone] Jeffery Sosa MD [address] [place] [address] Abnormal cardiovascular stress test 10/19/2024 12:30 PM EDT - 10/19/2024 1:30 PM EDT Surgery [facility] Heart [facility] Center Vascular Lab [address] [place] [address] Jeffery Sosa MD [address] [facility] [address] [facility] [place] [address] Coronary angiography documented as of this encounter Visit Diagnoses Diagnosis Essential hypertension Unspecified essential hypertension Abnormal cardiovascular stress test- Primary Other nonspecific abnormal cardiovascular system function study Abnormal cardiovascular stress test Other nonspecific abnormal cardiovascular system function study documented in this encounter Care Teams Industrial Roofer Relationship Specialty Start Date End Date Pierce Cartwright MD [address] [facility] [place] [address] PCP - General 12/11/21 Franklin Stevens MD [address] [facility] [place] [address] Consulting Physician Urology 08/30/24 Nephrology Consulting Physician Nephrology 01/12/22 documented as of this encounter
--- OUTSIDE RECORDS SUMMARY | 2024-10-17 10:14 | XMS_ITS | Encounter Summary ---
Author Organization [facility] Address [address] [place] [address] Care Team Providers Care Home Agent Name Role Phone Pierce Cartwright MD Primary Care Provider [phone] Encounter Details Date Type Department Care Team (Late st Contact Info) Description 10/09/2024 Abstract [facility] [address] [place] [phone] Galo Corado DPM [address] [place], [place] [phone] Social History Tobacco Use Types Packs/Day Years [...] Description 12/11/2024 3:15 PM EDT Procedure Visit [facility] [address] [place] [address] Selam Larsen DPM [address] [place] [address] documented as of this encounter Visit Diagnoses Not on filedocumented in this encounter Care Teams Home Agent Relationship Specialty Start Date End Date Pierce Cartwright MD [address] [place] [address] PCP - General Family Medicine 08/12/22 documented as of this encounter
[2024-10-17 10:41] LABS: Hematocrit 27.2 % (42.0-54.0); Hemoglobin 9.1 g/dL (14.0-18.0); Immature Granulocytes Abs Auto 0.05 10^3/uL (0.00-0.03); Immature Granulocytes Pct Auto 0.6 % (0.0-0.5); Lymphocytes Absolute Auto 1.0 10^3/uL (1.2-3.8); Mean Corpuscular HGB Conc 33.5 g/dL (29.9-35.2); Mean Corpuscular Hemoglobin 31.7 pg (25.9-34.0); Mean Corpuscular Volume 94.8 fL (80.0-94.0); Platelet Count 155 10^3/uL (150-450); Red Blood Count 2.87 10^6/uL (4.70-6.10); White Blood Count 8.4 10^3/uL (4.0-11.0)
[2024-10-17 10:50] LABS: Anion Gap 11.7; Blood Urea Nitrogen 37.0 mg/dL (7.0-18.0); Calcium 8.8 mg/dL (8.5-10.1); Carbon Dioxide 31.1 mmol/L (21.0-32.0); Chloride 100 mmol/L (98-107); Estimated GFR (African America 6 (>=60 mL/min/1.73m^2); Estimated GFR (Non-African Ame 5 (>=60 mL/min/1.73m^2); Glucose 158 mg/dL (74-106); Potassium 3.8 mmol/L (3.5-5.1); Sodium 139 mmol/L (136-145)
== END 2024-10-17 10:10 | disposition home or self-care (01) ==
PROVIDERS: PCP Family Medicine; Visit Provider Internal Medicine Interventional Cardiology
DX: R94.39 Abnormal result of other cardiovascular function study (principal)
CPT/HCPCS: 36415; 80048; 85025

== ENCOUNTER 2024-11-08 12:47 | Outpatient (OUT) | payer MEDICARE, MEDICAID, SELFPAY ==
--- OUTSIDE RECORDS SUMMARY | 2024-07-14 10:24 | XMS_ITS ---
Author Organization [facility] in [place] Address [address] [place] [address] Care Team Providers Care Loan Analyst Name Role Phone Gamal Cartwright Primary Care Provider REASON FOR VISIT lantus not covered Medications Medication SIG (Take, Route, Frequency, Duration) Notes Start Date End Date Status Basaglar KwikPen 100 UNIT/ML inject 16 units Subcutaneous once daily for 90 days 07/14/2024 Active Encounters Encounter Location Date Provider Diagnosis [facility] [address] [place] [address] 07/14/2024 Gamal Gabbie Plan Of Treatment Medication Medication Name Sig Start Date Stop Date Notes Basaglar KwikPen 100 UNIT/ML inject 16 u nits Subcutaneous once daily for 90 days 07/14/2024 Progress Notes * Franklin YATES JrDOB: [birth year] (58 yo M)Acc No.[id number]:07/14/2024 Patient: Yojana LIRIANOFranklin Jr :1965 A ge:58 Y S ex:Male Address:[address] [place] [address], [phone] * Refills Start Basaglar KwikPen Solution Pen-injector, 100 UNIT/ML, Subcutaneous, 3, inject 16 units, once daily, 90 days, Refills=3 * true * Date: Generated for Printi ng/Faxing/eTransmitting on: 0 11/08/2024 12:49 PM EDT
--- OUTSIDE RECORDS SUMMARY | 2024-09-11 06:39 | XMS_ITS ---
Author Organization [facility] in [place] Address [address] [place] [address] Care Team Providers Care Hand Edge Bander Name Role Phone Gamal Cartwright Primary Care Provider [phone] REASON FOR VISIT pen needle refills Medications Medication SIG (Take, Route, Frequency, Duration) Notes Start Date End Date Status Easy Comfort Pen Niles 31G X 8 MM as directed for 30 days Acti ve Encounters Encounter Location Date Provider Diagnosis [facility] [address] [place] [address] 09/11/2024 Gamal Cartwright Plan Of Treatment Medication Medication Name Sig Start Date Stop Date Notes Easy Comfort Pen Niles 31G X 8 MM as directed for 30 days Progress Notes * Franklin YATES JrDOB: [birth year] (59 yo M)Acc No.[id number]:09/11/2024 Patient: Yojana LIRIANOFranklin Jr :1965 A ge:59 Y S ex:Male Address:[address] [place], [address] * Refills Refill Easy Comfort Pen Niles Miscellaneous, 31G X 8 MM, 100, as directed, 30 days, Refills=11 * true * Date: Generated for Printi ng/Faxing/eTransmitting on: 0 11/08/2024 12:25 PM EDT
--- OUTSIDE RECORDS SUMMARY | 2024-10-31 15:30 | XMS_ITS | Encounter Summary ---
Author Organization [facility] Address [address] [place] [address] Care Team Providers Care Drum Printer Name Role Phone Pierce Cartwright MD Primary Care Provider [phone] Franklin Stevens MD Unavailable Reason for Referral * Imaging (Routine) - Pending Review Specialty Diagnoses / Procedures Referred By Aileen maldonado Referred To Contact Radiology Diagnoses Pre-op testing Procedures CT abdomen pelvis wo IV contrast Otis Colunga MD [address] [place] [address] Phone: tel: fax: Referral ID Status Reason Start Date Expiration Date V isits Requested Visits Authorized [id number] Pending Review 11/01/2024 11/01/2025 1 1 * Imaging (Routine) - Pending Review Specialty Diagnoses / Procedures Referred By Aileen maldonado Referred To Contact Radiology Diagnoses End-stage renal disease (CMS/HCC) Multiple nodules of lung Pre-op testing Procedures CT chest wo IV contrast Otis Colunga MD [address] [place] [address] Phone: tel: fax: Referral ID Status Reason Start Date Expiration Date V isits Requested Visits Authorized [id number] Pending Review 11/01/2024 11/01/2025 1 1 Reason for Visit * Reason Comments Consult Referred by Dr Roger hunter Encounter Details Date Type Department Care Team ([facility] st Contact Info) Description 10/31/2024 3:30 PM EDT Consult [facility] [address] [place] [address] Jerome Pena CNP [address] [facility] [place] [address] Pre-op testing (Primary Dx); Coronary artery disease involving yocha dehe coronary artery of yocha dehe heart without angina pectoris; Type 2 diabetes mellitus with diabetic neuropathy, without long-term current use of insulin (CMS/HCC); End-stage renal disease (CMS/HCC); Multiple nodules of lung; PVD (peripheral vascular disease); Shortness of breath Social History Tobacco Use Types Packs/Day Years Used Date Smoking Tobacco: Former Cigarettes 1994 Smokeless Tobacco: Never Alcohol Use Standard Drinks/Week Comments Not Currently 0 (1 standard drink = 0.6 oz pur e alcohol) PHQ-2 Answer Date Recorded Patient Health Questionnaire-2 Score 0 10/31/2024 [place] Safety & [place] Answer Date Rec orded [...] AM EDT documented as of this encounter Last Filed Vital Signs Vital Sign Reading Time Taken Comments Blood Pressure 148/84 10/31/2024 3:27 PM EDT Pulse 60 10/31/2024 3:27 PM EDT Temperature 36.7 C (98 F) 10/31/2024 3:27 PM EDT Respiratory Rate - - Oxygen Saturation 100% 10/31/2024 3:27 PM EDT Inhaled Oxygen Concentration - - Weight 93 kg (205 lb) 10/31/2024 3:27 PM EDT Height 193 cm (6' 4 ) 10/31/2024 3:27 PM EDT Body Mass Index 24.95 10/31/2024 3:27 PM EDT documented in this encounter Functional Status documented as of this encounter Progress Notes * Jerome Pena CNP - 10/31/2024 3:30 PM EDT Images from the original note were not included. Cardiothoracic Surgery Outpatient Consultation Note 11/01/2024 Reason For Visit Chief Complaint Patient presents with Consult Referred by Dr Sosa Referring Provider: No ref. provider found History Of Present Illness Franklin Monzon is a 59 y.o. male presenting for new patient consultation for multivessel CAD. Referred by Dr. Sosa. Mr Monzon's medical history is significant for the following: Chronic HF-recoveredEF, NHYA II, HTN, ESRD (on PD since 05/2022), CAD (PCI to Cx in 2019), HLD, Anemia of chronic disease, Hx osteomyelitis of toes with previous toe amputation, hypothyroidism, and diabetic neuropathy. He saw Dr. Sosa for pre-transplant cardiac workup and was found to have multivessel CAD. Referred to CT Surgery for possible CABG. Denies dizziness and lightheadedness. Denies ever having chest pain. No palpitations or history of syncope or collapse. No cough or wheezing. No orthopnea or PND. Denies abdominal pain. No nausea or vomiting. Good appetite. No weakness to bilateral upper or lower extremities, but has chronic paresthesia of bilat feet. Denies history of CVA or TIA. No history of GI bleed, or easy bruising. No history of PE or DVT. No arrhythmia history. Assessment: Diagnosis Plan 1. Coronary artery disease involving yocha dehe coronary artery of yocha dehe heart without angina pectoris 2. Type 2 diabetes mellitus with diabetic neuropathy, without long-term current use of insulin ([facility]) 3. End-stage renal disease ([facility]) 4. Multiple nodules of lung Plan : -Patient seen and evaluated by Cardiothoracic Team. Dr. Otis Colunga personally examined the patient and reviewed The Cardiac Catherization, Echocardiogram, CXR, and Other Diagnostic Testing. Findings discussed with power technician and patient. Explained current disease process and reviewed treatment options. -CT Surgery Recommendation: Patient is currently without anginal symptoms and complaints. Will order additional testing to better assesss patient's candidacy for surgical coronary revascularization. -Ordered: Bilat Carotid US, Complete PFTs, and Bilat LE arterial and venous ultrasound. -Follow up in 1 month, or after testing is complete. -CT Surgery will have patient follow-up in the office once pre-operative testing is complete. Informed patient if reports increasing chest pain, SOB, or dizziness/lightheadedness to immediately go [facility] ED for further evaluation or call 911. All questions and concerns answered appropriately. Patient was agreeable to plan of care. Past Medical History He has a past medical history of Anemia in chronic kidney disease (CKD), Anxiety, CHF (congestive heart failure) ([facility]), Chronic fatigue syndrome, Chronic sinusitis, Coronary artery disease, Diabetic foot ulcers ([facility]), Diabetic neuropathy ([facility]), ED (erectile dysfunction), ESRD (end stagerenal disease) ([facility]) (06/17/2022), GERD (gastroesophageal reflux disease), Heart valve disease,History of pleural effusion, History of tobacco use, Hyperlipidemia, Hypertension, Hypothyroidism, Myocardial infarction ([facility]), Osteomyelitis ([facility]), Panic attack, Pericardial effusion, Proteinuria, Pulmonary nodules, PVD (peripheral vascular disease), Secondary hyperparathyroidism of renal origin, Swelling of both lower extremities, Type 2 diabetes mellitus ([facility]), and Vitamin D deficiency. Surgical History He has a past surgical history that includes Cardiac catheterization (Right, 05/20/2021); Cardiac catheterization (02/07/2020); Toe amputation (05/07/2022); Peritoneal catheter insertion (05/28/2022); Wound debridement (Right, 09/04/2022); Abscess drainage (Left, 10/07/2022); and Colonoscopy (2016). Family History Family History[1] Social History He reports that he quit smoking about 30 years ago. His smoking use included cigarettes. He startedsmoking about 42 years ago. He has a 12 pack-year smoking history. He has never used smokeless tobacco. He reports that he does not currently use alcohol. He reports that he does not use drugs. Allergies Sulfa (sulfonamide antibiotics) Medications Current Medications[2] Review of Systems Review of Systems: All 14 Systems Reviewed and Negative unless otherwise indicated in the above HPI. Last Recorded Vitals Visit Vitals BP 148/84 (BP Location: Left arm, Patient Position: Sitting, BP Cuff Size: Adult) Pulse 60 Temp 36.7 ??C (98 ??F) (Temporal) Physical Exam Physical Exam Constitutional: General: He is not in acute distress. Appearance: Normal appearance. He is not ill-appearing, toxic-appearing or diaphoretic. HENT: Mouth/Throat: Mouth: Mucous membranes are moist. Cardiovascular: Rate and Rhythm: Normal rate and regular rhythm. Heart sounds: No murmur heard. Pulmonary: Effort: Pulmonary effort is normal. Breath sounds: Normal breath sounds. Abdominal: General: There is no distension. Palpations: Abdomen is soft. Comments: Periotoneal dialysis catheter in place Musculoskeletal: General: No swelling or tenderness. Skin: General: Skin is warm and dry. Capillary Refill: Capillary refill takes less than 2 seconds. Coloration: Skin is not jaundiced or pale. Neurological: General: No focal deficit present. Mental Status: He is alert and oriented to person, place, and time. Psychiatric: Mood and Affect: Mood normal. Behavior: Behavior normal. Relevant Results No visits with results within 1 Day(s) from this visit. Latest known visit with results is: Admission on 10/19/2024, Discharged on 10/19/2024 Component Date Value Ref Range Status Ventricular Rate 10/19/2024 58 BPM Final Atrial Rate 10/19/2024 58 BPM Final IA Interval 10/19/2024 236 ms Final QRS DURATION 10/19/2024 88 ms Final QT Interval 10/19/2024 470 ms Final QTC CALCULATION(BAZETT) 10/19/2024 461 ms Final P Gilchrist 10/19/2024 37 degrees Final R-Gilchrist 10/19/2024 -22 degrees Final T Wave Gilchrist 10/19/2024 91 degrees Final Activated Clotting Time 10/19/2024 258 (H) 82 - 152 s Final FFRFTF88% 10/19/2024 62.5 (A) 90 - 95 % Final QC Pass/Fail 10/19/2024 Passed Final QC LOT # 10/19/2024 [id number] Final QC Expiration Date 10/19/2024 73,126 Final SAMPLESITE 10/19/2024 nl Final No echocardiogram results found for the past [address] abdomen pelvis wo renal recipient Result Date: 09/01/2024 1. Indeterminate inferior pole right renal lesion. Neoplasm is not excluded, and MRI or CT of the kidneys with and without contrast is recommended for further evaluation. 2. Vascular calcifications as detailed above. 3. Small volume ascites and mild body wall edema. 4. CT chest is reported separately. All CT scans at this facility use dose modulation, iterative reconstruction, and/or weight baseddosing when appropriate to reduce radiation dose to as low as reasonably achievable. Electronicallysigned: Jeremy Marshall. CT chest wo IV contrast Result Date: 09/01/2024 * Small pulmonary nodules as detailed above measuring 4 mm or less, optional twelve-month follow-upCT could be obtained in a high-risk patient. Low risk patient requires no follow-up. * Pleural thickening right hemithorax with areas of scarring. * Please see above for further details. Electronically signed: Esteban Orozco MD. No X-ray results found for the past 3 days Cardiothoracic Surgery outpatient Office Number [phone]. Cardiothoracic Surgery outpatient . [1] Family History Problem Relation Name Age of Onset Alzheimer's disease Mother Hypertension Mother Breast cancer Mother Coronary artery disease Father Hypertension Father Diabetes Father Stroke Father COPD Father Hyperlipidemia Father Coronary artery disease Paternal Grandmother [2] Current Outpatient Medications Medication Sig Dispense Refill aspirin 81 mg EC tablet Take 1 tablet every day by oral route. calcium carbonate (Tums) 200 mg calcium (500 mg) chewable tablet Chew 1 tablet three times daily. carvedilol (Coreg) 25 mg tablet TAKE 1 AND 1/2 TABLETS BY MOUTH TWICE A DAY 270 tablet 3 hydrALAZINE (Apresoline) 50 mg tablet TAKE 1 TABLET (50 MG) BY MOUTH IN THE MORNING, AFTERNOON, ANDAT BEDTIME. (Patient taking differently: Take 50 mg by mouth Twice daily at 6am and 6pm.) 270 tablet 3 hydrOXYzine HCL (Atarax) 25 mg tablet Take 25 mg by mouth 1 (one) time. (Patient taking differently: Take 25 mg by mouth if needed.) insulin glargine (Lantus) 100 unit/mL (3 mL) pen INJECT 16 UNITS SUB Q DAILY (83 DAY SUPPLY) isosorbide dinitrate (Isordil) 10 mg tablet TAKE 1 TABLET (10 MG) BY MOUTH IN THE MORNING, AT NOON,AND AT BEDTIME. 270 tablet 3 levothyroxine (Synthroid, Levoxyl) 100 mcg tablet Take 1 tablet by mouth in the morning. liothyronine (Cytomel) 5 mcg tablet Take 2 tablets by mouth in the morning. magnesium oxide (Mag-Ox) 400 mg (241.3 mg magnesium) tablet Take 1 tablet by mouth in the morning. montelukast (Singulair) 10 mg tablet Take 1 tablet by mouth in the morning. Nephro-Jose 0.8 mg tablet Take 1 tablet by mouth in the morning. NIFEdipine XL (Procardia XL) 30 mg 24 hr tablet Take 1 tablet by mouth in the morning. omeprazole (PriLOSEC) [address] capsule Take 1 capsule by mouth in the morning and at bedtime. potassium chloride CR (Klor-Con M20) 20 mEq ER tablet Take 20 mEq by mouth in the morning. pravastatin (Pravachol) 20 mg tablet Take 1 tablet (20 mg) by mouth in the morning. 90 tablet 3 sevelamer carbonate (Renvela) 800 mg tablet TAKE ONE TABLET BY MOUTH THREE TIMES A DAY WITH MEALS insulin aspart (NovoLOG) 100 unit/mL (3 mL) pen INJECT PER SCALEIF SUGAR IS <140 = 4U, 140-200 =8U, OVER 200 12U (35 DAY SUPPLY) (Patient not taking: Reported on 10/19/2024) No current facility-administered medications for this visit. documented in this encounter Miscellaneous Notes * Addendum Note - Dakota Tanner MA - 10/31/2024 3:30 PM EDTAddended by: DAKOTA TANNER on: 11/01/2024 01:41 PM Modules accepted: Orders * Addendum Note - Dakota Tanner MA - 10/31/2024 3:30 PM EDTAddended by: DAKOTA TANNER on: 11/01/2024 02:06 PM Modules accepted: Orders documented in this encounter Plan of Treatment Upcoming Encounters Date Type Department Care Team (Late st Contact Info) Description 11/16/2024 10:30 AM EDT Appointment [facility] Pulmonary Function Testing [address] [facility] 3rd [place] [address] 11/30/2024 3:00 PM EDT Follow-Up [facility] [address] [place] [address] Becky, , REHABILITATION CASEWORKER [address] [place] [address] Scheduled Orders Name Type Priority Associated Diagnoses Orde r Schedule CBC and differential Lab Routine End-stage renal disease (CMS/HCC) Multiple nodules of lung Pre-op testing Expected: 11/01/2024 (Approximate), Expires: 11/01/2025 Urinalysis Lab Routine End-stage renal disease (CMS/HCC) Multiple nodules of lung Pre-op testing Expected: 11/01/2024 (Approximate), Expires: 11/01/2025 MRSA/MSSA DNA Nasal Microbiology Routine End-stage renal disease (CMS/HCC) Multiple nodules of lung Pre-op testing Expected: 11/01/2024 (Approximate), Expires: 11/01/2025 Type and screen Lab Routine End-stage renal disease (CMS/HCC) Multiple nodules of lung Pre-op testing Expected: 11/01/2024 (Approximate), Expires: 11/01/2025 Comprehensive metabolic panel Lab Routine End-stage renal disease (CMS/HCC) Multiple nodules of lung Pre-op testing Expected: 11/01/2024 (Approximate), Expires: 11/01/2025 Magnesium Lab Routine End-stage renal disease (CMS/HCC) Multiple nodules of lung Pre-op testing Expected: 11/01/2024 (Approximate), Expires: 11/01/2025 Phosphorus Lab Routine End-stage renal disease (CMS/HCC) Multiple nodules of lung Pre-op testing Expected: 11/01/2024 (Approximate), Expires: 11/01/2025 APTT Lab Routine End-stage renal disease (CMS/HCC) Multiple nodules of lung Pre-op testing Expected: 11/01/2024 (Approximate), Expires: 11/01/2025 Lipid panel Lab Routine End-stage renal disease (CMS/HCC) Multiple nodules of lung Pre-op testing Expected: 11/01/2024 (Approximate), Expires: 11/01/2025 TSH Lab Routine Type 2 diabetes mellitus with diabetic neuropathy, without long-term current use of insulin (CMS/HCC) Pre-op testing Expected: 11/01/2024 (Approximate), Expires: 11/01/2025 Hemoglobin A1c Lab Routine Type 2 diabetes mellitus with diabetic neuropathy, without long-term current use of insulin (CMS/HCC) End-stage renal disease (CMS/HCC) Pre-op testing Expected: 11/01/2024 (Approximate), Expires: 11/01/2025 Protime-INR Lab Routine End-stage renal disease (CMS/HCC) Multiple nodules of lung Pre-op testing Expected: 11/01/2024 (Approximate), Expires: 11/01/2025 CT chest wo IV contrast Imaging Routine End-stage renal disease (CMS/HCC) Multiple nodules of lung Pre-op testing Expected: 11/01/2024, Expires: 11/01/2025 CT abdomen pelvis wo IV contrast Imaging Routine Pre-op testing Ordered: 11/01/2024 documented as of this encounter Visit Diagnoses Diagnosis Pre-op testing- Primary Unspecified pre-operative examination Coronary artery disease involving yocha dehe coronary artery of yocha dehe heart without angina pectoris Type 2 diabetes mellitus with diabetic neuropathy, without long-term current use of insulin (CMS/HCC) End-stage renal disease (CMS/HCC) Multiple nodules of lung PVD (peripheral vascular disease) Unspecified peripheral vascular disease Shortness of breath documented in this encounter Care Teams Drum Printer Relationship Specialty Start Date End Date Pierce Cartwright MD [address] [place] [id number] PCP - General 12/11/21 Franklin Stevens MD [address] [place] [phone] Consulting Physician Urology 08/30/24 Nephrology Consulting Physician Nephrology 01/12/22 documented as of this encounter
--- OUTSIDE RECORDS SUMMARY | 2024-11-08 12:49 | XMS_ITS | Encounter Summary ---
Author Organization [facility] Address [address] [place] [address] Care Team Providers Care Attraction Attendant Name Role Phone Pierce Cartwright MD Primary Care Provider [phone] Source Comments In the event this information is protected by the Federal Confidentiality of Alcohol and Drug AbusePatient Records regulations: The Federal rules restrict any use of the information to criminally investigate or prosecute any alcohol or drug abuse patient.[facility] Encounter Details Date Type Department Care Team (Late st Contact Info) Description 05/26/2022 Lab Requisition [facility] [address] [place] [address] Primo Luis MD [address] [place] [address] Social History Tobacco Use Types [...] N ot on file 04/08/2022 Data from: [email or web address] Last address used for calculation [address] [...] [facility]ORY [facility] ([place]) 06/01/2022 8:05 AM EDT [facility] Comment: Identification performed by client. Bacteroides spp. are intrinsically resistant to ampicillin, penicillin, and aminoglycosides. Micro Specimen OTHER / Unknown 05/21/2022 6:37 PM EST 05/26/2022 4:48 AM EST Narrative Organism Antibiotic Method Susceptibility Bacteroides fragilis Ertapenem MINIMUM INH IBITORY CONCENTRATION(E-TEST) 2: Susceptible Bacteroides fragilis Ampicillin/Sulbact MINIMUM INHIBITORY CONCENTRATION(E-TEST) 8: Susceptible Bacteroides fragilis Metronidazole MINIMUM INH IBITORY CONCENTRATION(E-TEST) 0.064: Susceptible us Pirmo Luis MD LABORATORY Final Resul t [facility] [address] documented in this encounter Visit Diagnoses Not on filedocumented in this encounter Care Teams Attraction Attendant Relationship Specialty Start Date End Date Pierce Cartwright MD PCP - General Family Medicine 09/29/21 documented as of this encounter
--- OUTSIDE RECORDS SUMMARY | 2024-11-08 12:49 | XMS_ITS | Encounter Summary ---
Author Organization [facility] Address [address] [place] [address] Care Team Providers Care Household Refrigerator Mechanic Name Role Phone Pierce Cartwright MD Primary Care Provider [phone] Franklin Stevens MD Unavailable Reason for Visit * Reason Comments Med Refill Encounter Details Date Type Department Care Team (Late st Contact Info) Description 02/08/2023 Refill [facility] [address] [place] [address] Jeffery Sosa MD [address] [facility] [address] [facility] [place] [phone] Chest pain, unspecified type Social History Tobacco [...] Description 11/16/2024 10:30 AM EDT Appointment [facility] Pulmonary Function Testing [facility] [facility] 3rd [place] [phone] 11/30/2024 3:00 PM EDT Follow-Up [facility] [address] [place] [address] Jerome Pena, BRIDGE TOLL COLLECTOR [address] [place] [address] documented as of this encounter Visit Diagnoses Diagnosis Chest pain, unspecified type documented in this encounter Care Teams Household Refrigerator Mechanic Relationship Specialty Start Date End Date Pierce Cartwright MD [address] [place] [address] PCP - General 12/11/21 Franklin Stevens MD [address] [place] [address] Consulting Physician Urology 08/30/24 Nephrology Consulting Physician Nephrology 01/12/22 documented as of this encounter
--- OUTSIDE RECORDS SUMMARY | 2024-11-08 12:49 | XMS_ITS | Encounter Summary ---
Author Organization [facility] Address [address] [place] [address] Care Team Providers Care Fireworks Assembly Supervisor Name Role Phone Pierce Cartwright MD Primary Care Provider [phone] Franklin Stevens MD Unavailable Reason for Visit * Reason Comments Med Refill Encounter Details Date Type Department Care Team (Late st Contact Info) Description 03/10/2023 Refill [facility] [address] [place] [address] Ruth Zhang, CANOE MAKER [address] [place] [address] Coronary artery disease, unspecified vessel or lesion type, unspecified whether angina present, unspecified whether resighini or transplanted heart Social History Tobacco Use [...] Info) Description 11/16/2024 10:30 AM EDT Appointment [facility] Pulmonary Function Testing [address] [place] [address] 3rd [place] [address] 11/30/2024 3:00 PM EDT Follow-Up [facility] [address] [place] [address] Jerome Pena CNP [address] [place] [address] documented as of this encounter Visit Diagnoses Diagnosis Coronary artery disease, unspecified vessel or lesion type, unspecified whether angina present, unspecified whether resighini or transplanted heart documented in this encounter Care Teams Fireworks Assembly Supervisor Relationship Specialty Start Date End Date Pierce Cartwright MD [address] [facility] [place] [address] PCP - General 12/11/21 Franklin Stevens MD [address] [place], [place] [address] [place] [address] Consulting Physician Urology 08/30/24 Nephrology Consulting Physician Nephrology 01/12/22 documented as of this encounter
--- OUTSIDE RECORDS SUMMARY | 2024-11-08 12:49 | XMS_ITS | Clinical Summary ---
Author Organization [facility] Address [address] [place] [address] Care Team Providers Care Substance Abuse Services Director Name Role Phone Pierce Cartwright MD Primary Care Provider [phone] Gopal Stevens MD Unavailable Allergies Active Allergy [...] 07/09/19 23 Active hydrALAZINE (Apresoline) 50 mg tabletIndicatio ns:Coronary artery disease, unspecified vessel or lesion type, unspecified whether angina present, unspecified whether [place] or transplanted heart TAKE 1 TABLET (50 MG) BY MOUTH IN THE MORNING, AFTERNOON, AND AT BEDTIME. 270 tablet 3 03/11/20 23 Active Additional Information Patient taking differently:50 mg oral2 times daily, Reported on 10/31/2024 potassium chloride CR (Klor-Con M20) 20 mEq ER tablet Take 20 mEq by mouth in the morning. 09/09/19 24 Active pravastatin (Pravachol) 20 mg tabletIndicatio ns:Coronary artery disease involving [place] coronary artery of [place] heart without angina pectoris Take 1 tablet (20 mg) by mouth in the morning. 90 tablet 3 12/22/19 24 025 Active carvedilol (Coreg) 25 mg tabletIndicatio ns:Essential hypertension TAKE 1 AND 1/2 TABLETS BY MOUTH TWICE A DAY 270 tablet 3 01/06/20 24 Active isosorbide dinitrate (Isordil) 10 mg tabletIndicatio ns:Chest pain, unspecified type TAKE 1 TABLET (10 MG) BY MOUTH IN THE MORNING, AT NOON, AND AT BEDTIME. 270 tablet 3 01/06/20 24 025 Active hydrOXYzine HCL (Atarax) 25 mg tablet Take 25 mg by mouth 1 (one) time. 03/21/20 Active magnesium oxide (Mag-Ox) 400 mg (241.3 mg magnesium) tablet Take 1 tablet by mouth in the morning. 06/02/19 Active montelukast (Singulair) 10 mg tablet Take [...] dysfunction 11/24/2023 Chronic GERD 11/24/2023 History of NH (myocardial infarction) 11/24/2023 History of osteomyelitis 11/24/2023 [...] deficiency 05/01/2022 Coronary artery disease invo lving [place] coronary artery of [place] heart without angina pectoris 01/12/2022 Overview (01/12/2022): [...] Assessment & Plan (09/09/2023 3:59 PM EDT): DCHC II Continue GDMT- ASA, coreg, hydralazine, isordil, [...] Encounters Date Type Department Care Team Description 11/06/2024 Telephone [facility] Heart [place] [address] [place] [address] Saida Briggs MA 11/03/2024 Telephone [facility] Cardiothoracic [facility] [place] [address] [place] [phone] Dakota Tanner MA Other 11/01/2024 Orders Only [facility] Cardioth[facility]acic Surgery [place] [address] [place] [address] Dakota Tanner MA 11/01/2024 Orders Only Cardiothoracic Surgery [address] [place] [phone] Jerome Pena CNP Coronary artery disease involving [place] coronary artery of [place] heart without angina pectoris (Primary Dx); PVD (peripheral vascular disease); Shortness of breath; Other specified symptoms and signs involving the circulatory and respiratory systems 10/31/2024 3:30 PM EDT Consult [facility] Cardioth[facility]acic [facility] [place] [address] [place] [address] Jerome Pena CNP Pre-op testing (Primary Dx); Coronary artery disease involving [place] coronary artery of [place] heart without angina pectoris; Type 2 diabetes mellitus with diabetic neuropathy, without long-term current use of insulin (CMS/HCC); End-stage renal disease (CMS/HCC); Multiple nodules of lung; PVD (peripheral vascular disease); Shortness of breath 10/20/2024 Episode Changes [facility] Transplant [address] [place] [address] Pierce Ventura RN 10/19/2024 12:30 PM EDT - 10/19/2024 1:30 PM EDT Surgery [facility] [place] [facility] [address] [place] [address] Jeffery Sosa MD Coronary angiography 10/19/2024 10:53 AM EDT - 10/19/2024 6:06 PM EDT Hospital Encounter [facility] [place] [facility] [address] [place] [address] Jeffery Sosa MD Abnormal cardiovascular stress test Discharge Disposition: Home or Self Care () 10/19/2024 Travel 10/17/2024 Telephone [facility] Heart [facility] [address] [place] [address] Susan Arroyo MA 10/12/2024 Travel 10/05/2024 Telephone [facility] Cardiology Clinic [address] [place] [address] Tanvi Hathaway MA 10/05/2024 Results Follow-Up [facility] Transplant [address] [place] [address] Tanvi Hathaway MA Lexiscan Stress Myocardial Perfusion Imaging 10/04/2024 10:31 AM EDT - 10/04/2024 11:59 PM EDT Hospital Encounter [facility] Heart Station [address] [place] [address] Pre-transplant evaluation for kidney transplant; Coronary artery disease involving left main coronary artery Discharge Disposition: Home or Self Care () 09/06/2024 Telephone [facility] Infectious Disease [address] [place] [phone] Aleida Abraham MA 08/30/2024 1:00 PM EDT Lab [facility] Outpatient Draw Station [address] [place] [address] End stage renal disease (CMS/HCC) 08/30/2024 12:58 PM EDT - 08/30/2024 11:59 PM EDT Hospital Encounter [facility] Heart and Vascular Center Heart Station [address] [place] [address] Discharge Disposition: Home or Self Care () 08/30/2024 12:28 PM EDT - 08/30/2024 12:57 PM EDT Hospital Encounter [facility] CT Imaging [address] [place] [address] Discharge Disposition: Home or Self Care () 08/30/2024 12:27 PM EDT Hospital Encounter [facility] CT Imaging [address] [place] [address] Discharge Disposition: Home or Self Care () 08/30/2024 12:27 PM EDT Hospital Encounter [facility] X-Ray Imaging [address] [place] [address] Discharge Disposition: Home or Self Care () 08/30/2024 8:00 AM EDT Clinical Support [facility] Transplant [address] [facility] [place] [address] Gopal Stevens MD Akrawi, Samer, MD Type 2 diabetes mellitus with ESRD (end-stage renal disease) ([facility]) (Primary Dx); Encounter for other preprocedural examination; End stage renal disease ([facility]); 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 not on chronic dialysis, with long-term current use of insulin ([facility]); Pre-transplant evaluation for kidney transplant [Z01.818] from Last 3 Months Immunizations Immunization Administration Dates Next Due Hep B, adult 02/22/2023,10/26/2022,09/28/2022 Influenza, Unspecified 12/21/2023 Pfizer SARS-CoV-2 Vaccination 06/11/2021 Pneumococcal Conjugate PCV 20 12/21/2023 Unspecified Sars-Cov-2 Vaccination 06/11,06/11/2021,07/29/2020,07/09/19 21 Family History Medical History Relation Name Comments [...] Date Smoking Tobacco: Former Cigarettes 1 12 983 - 1994 Smokeless Tobacco: Never Alcohol Use Standard Drinks/Week Comments Not Currently 0 (1 standard drink = 0.6 oz pur e alcohol) PHQ-2 Answer Date Recorded Patient Health Questionnaire-2 Score 0 10/31/2024 [place] Safety & Environment Answer Date Rec [...] F) 10/31/2024 3:27 PM EDT Respiratory Rate 20 10/19/2024 5:30 PM EDT Oxygen Saturation 100% 10/31/2024 3:27 PM EDT Inhaled Oxygen Concentration - - Weight 93 kg (205 lb) 10/31/2024 3:27 PM EDT Height 193 cm (6' 4 ) 10/31/2024 3:27 PM EDT Body Mass Index 24.95 10/31/2024 3:27 PM EDT Plan of Treatment Upcoming Encounters Date Type Department Care Team (Late st Contact Info) Description 11/16/2024 10:30 AM EDT Appointment [facility] Pulmonary Function Testing [address] [facility] 3rd [place] [address] 11/30/2024 3:00 PM EDT Follow-Up [facility] Heart and Vascular Cardiothoracic Surgery Center [address] [place] [address] Jerome Pena, AILYN [address] [place] [address] Health Maintenance Due Date Last Done Comments CT Colonography 1965 FIT-DNA 1965 FIT 1965 FOBT 1965 Medicare Annual Wellness (AWV) 1965 Sigmoidoscopy 1965 Diabetes: Retinopathy Screening 1974 Diabetes: Urine Protein Screening 08/01/1983 Adult Tetanus 1986 Zoster Vaccines (1 of 2) 2014 COVID-19 Vaccine ( season) 2023 06/11/2021, 06/11/2021, 06/11/2021, Additional history exists Influenza Vaccine (#1) 2024 12/21/2023 Diabetes: Hemoglobin A1C 11/30/2024 08/30/2024 Depression Screening 10/31/2025 10/31/2024 Colonoscopy 05/18/2028 05/18/2018 Colorectal Cancer Screening 05/18/2028 [...] Procedure Name Priority Date/Time Associated Diagnosis Comments INSTANT WAVE FREE RATIO (IFR) Routine 10/19/2024 2:00 PM EDT Abnormal cardiovascular stress test RIGHT HEART CATH Routine 10/19/2024 2:00 PM EDT Abnormal cardiovascular stress test CORONARY ANGIOGRAPHY Routine 10/19/2024 2:00 PM EDT Abnormal cardiovascular stress test ACTIVATED CLOTTING TIME Routine 10/19/2024 1:59 PM EDT POCT HBO2% Routine 10/19/2024 1:36 PM EDT ECG 12-LEAD Routine 10/19/2024 11:38 AM EDT LEXISCAN STRESS MYOCARDIAL PERFUSION IMAGING Routine 10/04/2024 1:27 PM EDT Pre-transplant evaluation for kidney transplant Coronary artery disease involving left main coronary artery ECG 12-LEAD Routine 08/30/2024 1:29 PM EDT End stage renal disease ([facility]/HCC) CT ABDOMEN PELVIS WO RENAL RECIPIENT Routine 08/30/2024 12:56 PM EDT End stage renal disease ([facility]/HCC) CT CHEST WO IV CONTRAST Routine 08/30/2024 12:55 PM EDT End stage renal disease ([facility]/HCC) XR CHEST 2 VIEWS Routine 08/30/2024 12:5 2 PM EDT End stage renal disease ([facility]/HCC) SINGLE ANTIGEN CLASS II Routine 08/30/2024 12:31 PM EDT Type 2 diabetes mellitus with ESRD (end-stage renal disease) ([facility]/HCC) Encounter for other preprocedural examination End stage renal disease ([facility]/HCC) 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 not on chronic dialysis, with long-term current use of insulin ([facility]/HCC) SINGLE ANTIGEN CLASS I Routine 12:31 PM EDT Type 2 diabetes mellitus with ESRD (end-stage renal disease) ([facility]/HCC) Encounter for other preprocedural examination End stage renal disease ([facility]/HCC) 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 not on chronic dialysis, with long-term current use of insulin ([facility]/HCC) C-PEPTIDE Routine 08/30/2024 12:31 PM EDT End stage renal disease ([facility]/HCC) CBC WITH AUTO DIFFERENTIAL Routine 08/30/2024 12:31 PM EDT End stage renal disease (CMS/HCC) PANEL REACTIVE ANTIBODY Routine 08/30/2024 12:31 PM EDT End stage renal disease (CMS/HCC) HLA DR CLASS II TYPING Routine 12:31 PM EDT End stage renal disease (CMS/HCC) HLA ABC CLASS I TYPING Routine 12:31 PM EDT End stage renal disease (CMS/HCC) VARICELLA ZOSTER ANTIBODY, IGG Routine 08/30/2024 12:31 PM EDT End stage renal disease (CMS/HCC) QUANTIFERON TB GOLD Routine 08/30/2024 1 2:31 PM EDT End stage renal disease (CMS/HCC) RUBEOLA ANTIBODY IGG Routine 08/30/2024 12:31 PM EDT End stage renal disease (CMS/HCC) RUBELLA ANTIBODY, IGG Routine 08/30/2024 12:31 PM EDT End stage renal disease (CMS/HCC) MUMPS ANTIBODY, IGG Routine 08/30/2024 1 2:31 [...] PM EDT End stage renal disease (CMS/HCC) CBC AND DIFFERENTIAL Routine 08/30/2024 12:31 PM EDT End stage renal disease (CMS/HCC) BILIRUBIN, DIRECT Routine 08/30/2024 12: 31 PM EDT End stage renal disease (CMS/HCC) B-TYPE NATRIURETIC PEPTIDE Routine 08/30/2024 12:31 PM EDT Encounter for other preprocedural examination End stage renal disease (CMS/[facility]) TYPE AND SCREEN Routine 08/30/2024 12:31 PM EDT End stage renal disease ([facility]) from Last 3 Months Results * CORONARY ANGIOGRAPHY, RIGHT HEART CATH, INSTANT WAVE FREE RATIO (IFR) (10/19/2024 2:00 PM EDT) Anatomical Region Laterality Modality Other Narrative 10/19/2024 2:20 PM EDT PROCEDURE PHYSICIAN: Jeffery Sosa MD . Indications: Gopal Yates is a 59 y.o. male who has history of coronary artery disease status post stenting of the circumflex 9 years ago. He has incisional disease currently on dialysis. He is being considered for possible renal transplant. He was evaluated in cardiology clinic. A stress test showed inferior lateral ischemia. He was referred for cardiac catheterization. Assistants: None. Procedure Performed: Bilateral selective coronary angiogram. Right heart catheterization. IFR assessment of the LAD. Administration of intracoronary nitroglycerin. Access into the right common femoral artery and common femoral vein under ultrasound guidance. Limited right common femoral angiogram. Deployment of 6F Angio-Seal vascular closure device in the right common femoral artery. Methods: Procedure was explained to the patient with risks and benefits; he signed informed consent. he was brought to the environmental laboratory technician in a fasting state. The groin area was prepped and draped in usual fashion. Micropuncture technique was used under ultrasound guidance for access in the right common femoral artery. Inner cannular angiography was performed followed by upsizing to a 6-Brazilian x 11 cm sheath. Micropuncture technique was used under ultrasound guidance for access in the right common femoral vein and a 6-Brazilian x 11 cm sheath was placed. A 6-Brazilian Silvestre catheter was used for right heart catheterization and measurement of pressures and calculation of cardiac output using the estimated Marysol method. Silvestre catheter was removed. Bilateral selective coronary angiography was then performed using 6-Brazilian JL4 diagnostic catheter for engagement of the left coronary artery and 6-Brazilian JR4 diagnostic catheter for engagement of the right coronary artery. Catheters were removed. Heparin was administered intravenously and therapeutic ACT was confirmed during the rest of the procedure. A 6-Brazilian XB 3.5 guiding catheter was advanced and used to engage the left coronary ostium. A Modular Patternsi pressure wire was advanced and equalization of pressures made outside of the guiding catheter. The wire was then advanced into the distal LAD. Intracoronary nitroglycerin 200 micrograms was administered followed by performance of IFR measurement which was 0.81 and 0.82 indicating a hemodynamically significant stenosis. The guiding catheter and wire were removed. Hemostasis was achieved by Angioseal in the femoral artery manual compression in the femoral vein. he tolerated the procedure well and was transferred back to the cardiovascular recovery area. Hemodynamic Data: RA: 6 RV: 35/6, 10 PA: 32/15 (21) PCWP: 15 CO: 6.59 CI: 2.89 O2 Sat: PA sat: 63%, AO sat: 98% AO: 168/95 (112) TP PVR: 0.91 Wood units SVR: 1287 Metric units Coronary angiography: This is a right-dominant circulation. Left Main: This arises from the left coronary cusp. It bifurcates into left anterior descending and circumflex vessels. This has mild disease but no obstructive lesions. Left anterior descending: This is a large vessel. It is heavily calcified in the proximal to mid segments. There is a diffuse 70% stenosis in the proximal to mid segment. iFR assessment was 0.81 and 0.82 indicating hemodynamically significant stenosis. Pullback across the LAD localized the significant stenosis to be from beyond the the second diagonal branch to the proximal segment. Circumflex: This is a non-dominant vessel. It gives rise to a large obtuse marginal branch. Previously placed stent is widely patent with no in-stent restenosis. There is mild disease in the obtuse marginal branch and the circumflex system. Right coronary artery: This arises from the right coronary cusp. It is a dominant vessel. It is a large vessel. There is mild disease in the proximal to mid segments. The distal segment is heavily calcified and has a long 80% stenosis. The PDA and PLV branches have mild disease. Limited right common femoral angiography: This showed access to be in the femoral artery with no obstructive lesions seen in the common femoral artery and its proximal branches. Impression/Findings: Severe 2 vessel coronary artery disease. 70% heavily calcified stenosis in the proximal to mid LAD that is hemodynamically significant by IFR measurement. 80% long distal RCA heavily calcific stenosis. Patent obtuse marginal branch stent. Mild disease in the left main. Mild elevation of left filling pressures. Mild elevation of right filling pressures. Mild pulmonary hypertension. Normal cardiac output and cardiac index. Uncontrolled systemic hypertension. Plan: Aspirin 81 mg daily for life. Statin therapy for life. Maximize antianginal therapy. Consult Cardiothoracic Surgery team for review of candidacy regarding surgical bypass. If the patient is not a candidate for bypass surgery then he can be considered for percutaneous intervention. The heavy calcifications in the LAD and RCA make percutaneous intervention challenging with potentially limited durability. Follow up in Cardiology Clinic. Jeffery Sosa MD Study Details Abnormal cardiovascular stress test [R94.39], Preop cardiovascular exam [Z01.810] Jeffery Sosa MD CV CARDIAC CATH PROCEDURES F inal Result * (ABNORMAL) Activated clotting time (10/19/2024 1:59 PM EDT) Pathologist [facility] Activated Clotting Time 258(H) 82 - 152 s 10/19/2024 1:59 PM EDT [facility] ([place]) Blood Venous blood specimen / Unknown 10/19/2024 1:59 PM EDT 10/19/2024 1:59 PM EDT Jeffery Sosa MD LAB POINT OF CARE TE ST DOCKED DEVICE UNSOLICITED RESULTS Final Result [facility] ([place]) [address] [place] [address] * (ABNORMAL) POC Hb02% (10/19/2024 1:36 PM EDT) Pathologist [facility] [id number]% 62.5(A) 90 - 95 % QC Pass/Fail Passed QC LOT # [id number] QC Expiration Date 73,126 SAMPLESITE nl Blood Venous blood specimen / Unknown 10/19/2024 1:36 PM EDT Narrative Ez Sam, SAMEER - 10/20/2024 6:46 AM EDT Oper [id number] Jeffery Sosa MD POINT OF CARE TEST ENTER/RAN T ORDERABLES Final Result * Electrocardiogram, 12-lead (10/19/2024 11:38 AM EDT) Only the most recent of2 resultswithin the time period is included. Ventricular Rate 58 BPM GE MUSE Atrial Rate 58 BPM GE MUSE ME Interval 236 ms GE MUSE QRS DURATION 88 ms GE MUSE QT Interval 470 ms GE MUSE QTC CALCULATION(BAZE TT) 461 ms GE MUSE P [place] 37 degrees GE MUSE R-[place] -22 degrees GE MUSE T Wave [place] 91 degrees GE MUSE 10/19/2024 11:3 4 AM EDT 10/19/2024 12:33 PM EDT Impressions GE MUSE - 10/19/2024 12:33 PM EDT Sinus bradycardia with 1st degree A-V block Abnormal QRS-T angle, consider primary T wave abnormality Abnormal ECG When compared with ECG of 30-AUG-2024 13:07, No significant change was found Confirmed by Florencio DURAN, L.S. (2) on 10/19/2024 12:33:28 PM Narrative Procedure Note Isabelle Duran MD - 10/19/2024 IMPRESSION: Sinus bradycardia with 1st degree A-V block Abnormal QRS-T angle, consider primary T wave abnormality Abnormal ECG When compared with ECG of 30-AUG-2024 13:07, No significant change was found Confirmed by Florencio DURAN, L.S. (2) on 10/19/2024 12:33:28 PM Jeffery Sosa MD ECG ORDERABLES Final Result GE MUSE * Lexiscan Stress Myocardial Perfusion Imaging (10/04/2024 1:27 PM EDT) Anatomical Region Laterality Modality Other 10/04/2024 12:1 9 PM EDT Narrative 10/04/2024 2:36 PM EDT 1 1 [place] [facility] Heart Station [address] [place] [address] [phone] (fax) Lexiscan Stress Myocardial Perfusion Imaging- [facility] Name: GOPAL YATES Study Date: 10/04/2024 12:19 PM B/P: / HR: Date of : 1965 Location: [facility] Height: 76 in. Age: [...] Lexiscan Exercise Time: 03:03 Device: Treadmill HR [place] Used: 6.00 % HR Recovery: 1 bpm Frequent VE: 0 VE/min Resolution: Spontaneous Max HR: 71 bpm Target HR: 136 bpm Achieved: No Resting HR: 61 bpm Max Predicted HR: 160 bpm Achv. of Max Predicted: 44 % BP Max: 176/70 BP at Rest: 176/70 Max RPP: 29057 mmHg*bpm Max ST Lead: I Max ST Phase: Postinfsn Stage No. in Phase: [address] Stage: 4-[address] Amplitude: -0.[address] [place]: -0.140 mV/s Max ST Time in Phase: [...] 1.00 mets 63 bpm 176/70 -0.200 mm [id number] 00:30 1.00 mets 61 bpm 176/70 -0.150 [...] Reading Group: [facility] Referring Physician: Peirce Cartwright MD Stress Medical Records Clerk: Natalie Chapa Chemistry Manager: Yanet Alvarado Ordering Physician: Jeffery Sosa MD Advanced Practitioner: DIMITRY Michael Resting Perfusion Procedure Note Stephanie Dash MD - 10/04/2024 1 1 [facility] Heart Station [address] [place] [address] [phone] (fax) Lexiscan Stress Myocardial Perfusion Imaging- [facility] Name: GOPAL YATES Study Date: 10/04/2024 12:19 PM B/P: / HR: Date of : 1965 Location: [facility] Height: 76 in. Age: [...] Lexiscan Exercise Time: 03:03 Device: Treadmill HR [place] Used: 6.00 % HR Recovery: 1 bpm Frequent VE: 0 VE/min Resolution: Spontaneous Max HR: 71 bpm Target HR: 136 bpm Achieved: No Resting HR: 61 bpm Max Predicted HR: 160 bpm Achv. of Max Predicted: 44 % BP Max: 176/70 BP at Rest: 176/70 Max RPP: 87009 mmHg*bpm Max ST Lead: I Max ST Phase: Postinfsn Stage No. in Phase: [address] Stage: 4-[address] Amplitude: -0.[address] [place]: -0.140 mV/s Max ST Time in Phase: [...] 1.00 mets 63 bpm 176/70 -0.200 mm [id number] 00:30 1.00 mets 61 bpm 176/70 -0.150 [...] Group Referring Physician: Pierce Cartwright MD Stress Medical Records Clerk: Natalie Chapa Chemistry Manager: Yanet Alvarado Ordering Physician: Jeffery Sosa MD Advanced Practitioner: DIMITRY Michael Resting Perfusion Jeffery Sosa MD CV STRESS PROCEDURES Final R esult * CT abdomen pelvis wo renal recipient [...] signed: Jeremy Marshall. us Samer Lilia BATISTA IMG CT PROCEDURES Final Result * CT chest [...] details. Electronically signed: Esteban Orozco MD. us Samer Lilia BATISTA IMG CT PROCEDURES Final Result * XR chest 2 views (08/30/2024 12:52 PM EDT) Anatomical Region Laterality Modality Chest Computed Radiogr aphy 08/30/2024 2:04 PM EDT Impressions 08/30/2024 2:50 PM EDT Small right pleural effusion. Approved by:Louis Chairez08/30/2024 2:07 PM. Dangelo Parra,have reviewed the image(s) and agree with the [...] pleural effusion. Approved by:Louis Chairez08/30/2024 2:07 PM. Dangelo Parra,have reviewed the image(s) and agree with the findings inthis report. Electronically signed: Dangelo Al. [place] Rodrigues MD IM XR PROCEDURES Final Result * QUANTIFERON TB GOLD (08/30/2024 12:31 PM EDT) QUANTIFERON TB GOLD PLUS Negative Negative 08/31/2024 10:56 AM EDT [facility] ([facility]) Comment: Liaison Quantiferon TB Gold Plus Interpretation (IU/mL): NEGATIVE: M. tuberculosis infection not likely. Nil: <=8.0 TB1 Antigen minus Nil ([id number]): <0.35; OR >=0.35 and <25% of Nil value. TB2 Antigen minus Nil ([id number]): <0.35; OR >=0.35 and <25% of Nil value. Mitogen minus Nil: >=0.5 MITOGEN MINUS NIL 6.91 IU/mL 025 10:56 AM EDT [facility] ([place]IK[place]) TB1 MINUS NIL -0.01 IU/mL 08/31/2024 10:56 AM EDT [facility] ([facility]) TB2 MINUS NIL -0.01 IU/mL 08/31/2024 10:56 AM EDT [facility] ([facility]) NIL DIASORIN 0.05 IU/mL 08/31/2024 10:56 AM EDT [facility] ([facility]) Blood Venous blood specimen / Unknown Venipuncture / Unknown 08/30/2024 12:31 PM EDT 08/30/2024 12:43 PM EDT West Rodrigues MD LAB BLOOD ORDERABLES Final Resul t [facility] ([facility]) [address] [id number] * HLA ABC class I typing (08/30/2024 12:31 PM EDT) Tested Date [id number] 1:58 PM EDT [facility] TISSUE TYPING (HISTOTRAC) A-1 2 09/01/2024 1:58 PM EDT [facility] TISSUE TYPING (HISTOTRAC) A-2 3 09/01/2024 1:58 PM EDT [facility] TISSUE TYPING (HISTOTRAC) B-1 8 09/01/2024 1:58 PM EDT [facility] TISSUE TYPING (HISTOTRAC) B-2 44 09/01/2024 1:58 PM EDT [facility] TISSUE TYPING (HISTOTRAC) Bw-1 4 09/01/2024 1:58 PM EDT [facility] TISSUE TYPING (HISTOTRAC) Bw-2 6 09/01/2024 1:58 PM EDT [facility] TISSUE TYPING (HISTOTRAC) C-1 5 09/01/2024 1:58 PM EDT [facility] TISSUE TYPING (HISTOTRAC) C-2 7 09/01/2024 1:58 PM EDT [facility] TISSUE TYPING (HISTOTRAC) Test Method Class I typing by PCR-SSOP Luminex 09/01/2024 1:58 PM EDT [facility] TISSUE TYPING (HISTOTRAC) Signed By Signed by Gopal Ortiz CHT([facility]) MT(ASCP), Theater Education Teacher Transplant Immunology 09/01/2024 1:58 PM EDT [facility] TISSUE TYPING (HISTOTRAC) Blood Venous blood specimen / Unknown Venipuncture / Unknown 08/30/2024 12:31 PM EDT 08/30/2024 12:48 PM EDT West Rodrigues MD LAB BLOOD ORDERABLES Final Resul t Performing Organization Address City/[facility]/ZIP Co de Phone Number [facility] TISSUE TYPING (HISTOTRAC) [address] [place] [address], * Panel reactive antibody (08/30/2024 12:31 PM EDT) Extra Tube Hold for add-ons. 08/30/2024 2:38 PM EDT [facility] TISSUE TYPING (HISTOTRAC) Comment:Auto resulted. Blood Venous blood specimen / Unknown Venipuncture / Unknown 08/30/2024 12:31 PM EDT 08/30/2024 12:42 PM EDT West Rodrigues MD LAB BLOOD ORDERABLES Final Resul t [facility] TISSUE TYPING (HISTOTRAC) [address] [place] [address], [place] [phone] * HLA DR class II typing (08/30/2024 12:31 PM EDT) Tested Date [id number] 2:13 PM EDT [facility] TISSUE TYPING (HISTOTRAC) DRB1-1 17 09/01/2024 2:13 PM EDT [facility] TISSUE TYPING (HISTOTRAC) DRB1-2 12 09/01/2024 2:13 PM EDT [facility] TISSUE TYPING (HISTOTRAC) DRB3-1 52 09/01/2024 2:13 PM EDT [facility] TISSUE TYPING (HISTOTRAC) DRB3-2 52 09/01/2024 2:13 PM EDT [facility] TISSUE TYPING (HISTOTRAC) DQA1-1 05 09/01/2024 2:13 PM EDT [facility] TISSUE TYPING (HISTOTRAC) DQB1-1 2 09/01/2024 2:13 PM EDT [facility] TISSUE TYPING (HISTOTRAC) DQB1-2 7 09/01/2024 2:13 PM EDT [facility] TISSUE TYPING (HISTOTRAC) DPB1-1 04:01 09/01/2024 2:13 PM EDT [facility] TISSUE TYPING (HISTOTRAC) Test Method Class II typing by PCR-SSOP Luminex 09/01/2024 2:13 PM EDT [facility] TISSUE TYPING (HISTOTRAC) Signed By Signed by Gopal [facility]iz [facility] SAMEER(ASCP), Theater Education Teacher Transplant Immunology 09/01/2024 2:13 PM EDT [facility] TISSUE TYPING (HISTOTRAC) Blood Venous blood specimen / Unknown Venipuncture / Unknown 08/30/2024 12:31 PM EDT 08/30/2024 12:48 PM EDT us West Rodrigues MD LAB BLOOD ORDERABLES Final Resul t [facility] TISSUE TYPING (HISTOTRAC) [address] [place] [address], * Single antigen class II (08/30/2024 12:31 PM EDT) Tested Date [id number] 5:40 PM EDT [facility] TISSUE TYPING (HISTOTRAC) cPRA 0 09/05/2024 5:40 PM EDT [facility] TISSUE TYPING (HISTOTRAC) Comments No Specificites Found 09/05/2024 5:40 PM EDT [facility] TISSUE TYPING (HISTOTRAC) Test Method Class II Single Antigen 09/05/2024 5:40 PM EDT [facility] TISSUE TYPING (HISTOTRAC) Comment:Class II Antigen Spencer robeads Signed By Signed by Gopal Ortiz CHT([facility]) SAMEER([facility]), Theater Education Teacher Transplant Immunology 09/05/2024 5:40 PM EDT [facility] TISSUE TYPING (HISTOTRAC) Blood Venous blood specimen / Unknown Venipuncture / Unknown 08/30/2024 12:31 PM EDT 08/30/2024 12:42 PM EDT us Gopal Stevens MD LAB BLOOD ORDERABLES Final Resul t Performing Organization Address [facility] Co de Phone Number [facility] TISSUE TYPING (HISTOTRAC) [address] [place] [address], [place] [phone] * Single antigen class I (08/30/2024 12:31 PM EDT) Tested Date [id number] 5:40 PM EDT [facility] TISSUE TYPING (HISTOTRAC) cPRA 0 09/05/2024 5:40 PM EDT [facility] TISSUE TYPING (HISTOTRAC) Test Method Class I Single Antigen 09/05/2024 5:40 PM EDT [facility] TISSUE TYPING (HISTOTRAC) Signed By Signed by Gopal Ortiz CHT([facility]) SAMEER([facility]), Theater Education Teacher Transplant Immunology 09/05/2024 5:40 PM EDT [facility] TISSUE TYPING (HISTOTRAC) Comment:Class I Antigen Micr obeads Class I Low Risk Ab A:23 09/05/2024 5:40 PM EDT [facility] TISSUE TYPING (HISTOTRAC) Comments Potential specificites added to the watch list. 09/05/2024 5:40 PM EDT [facility] TISSUE TYPING (HISTOTRAC) Blood Venous blood specimen / Unknown Venipuncture / Unknown 08/30/2024 12:31 PM EDT 08/30/2024 12:42 PM EDT us Gopal Stevens MD LAB BLOOD ORDERABLES Final Resul t Performing Organization Address City/[facility]/ZIP Co de Phone Number [facility] TISSUE TYPING (HISTOTRAC) [address] [place] [address], [place] [phone] * HIV COMBO 4G (08/30/2024 12:31 PM EDT) HIV Combo 4G Negative Negative 08/30/2024 2:09 PM EDT [facility]) Blood Venous blood specimen / Unknown Venipuncture / Unknown 08/30/2024 12:31 PM EDT 08/30/2024 12:48 PM EDT West Rodrigues MD LAB BLOOD ORDERABLES Final Resul t [facility]) [address] [place] [address] * Hepatitis B surface antibody quant (08/30/2024 12:31 PM EDT) Hepatitis B Surface Ab 0.36 mIU/mL 08/30/2024 3:50 PM EDT [facility] ([facility]) Comment: INTERPRETATION: NONREACTIVE <8.00 mIU/mL INDETERMINATE 8.00 - 12.00 mIU/mL REACTIVE >12 mIU/mL Blood Venous blood specimen / Unknown Venipuncture / Unknown 08/30/2024 12:31 PM EDT 08/30/2024 12:47 PM EDT us West Rodrigues MD LAB BLOOD ORDERABLES Final Resul t [facility]) [address] [place] [address] * Mumps antibody IgG (08/30/2024 12:31 PM EDT) MUMPS IGG ANTIBODY 132.0 AU/mL 2024 6:19 PM EDT [facility]) Comment: NORMAL RANGES: < 9.0 NEGATIVE; NO DETECTABLE IgG ANTIBODY TO MUMPS. >= 9.0 AND < 11.0 EQUIVOCAL; REPEAT TESTING SUGGESTED. >= 11.0 POSITIVE; INDICATES PRESENCE OF DETECTABLE IgG ANTIBODY TO MUMPS. Mumps IgG Ab Interpretation Positive 08/30/2024 6:19 PM EDT [facility] ([facility]) Blood Venous blood specimen / Unknown Venipuncture / Unknown 08/30/2024 12:31 PM EDT 08/30/2024 12:47 PM EDT West Rodrigues MD LAB BLOOD ORDERABLES Final Resul t Performing Organization Address [facility] Co de Phone Number [facility]) [address] [place] [address] * Varicella zoster antibody, IgG (08/30/2024 12:31 PM EDT) VZV IgG Ab 2,833.0 Index 08/30/2024 6:19 PM EDT [facility] ([facility]) Comment: NORMAL RANGES: < 135 NEGATIVE; NO DETECTABLE IgG ANTIBODY TO VARICELLA-ZOSTER VIRUS. >= 135.0 AND < 165.0 EQUIVOCAL; REPEAT TESTING SUGGESTED. >= 165.0 POSITIVE; INDICATES PRESENCE OF DETECTABLE IgG ANTIBODY TO VARICELLA-ZOSTER VIRUS. VZV IgG Ab Interpretation Positive 08/30/2024 6:19 PM EDT [facility] ([facility]) Blood Venous blood specimen / Unknown Venipuncture / Unknown 08/30/2024 12:31 PM EDT 08/30/2024 12:47 PM EDT West Rodrigues MD LAB BLOOD ORDERABLES Final Resul t Performing Organization Address City/[facility] Co de Phone Number [facility]) [address] [place] [address] * Testosterone, free and total, and SHBG (08/30/2024 12:31 PM EDT) Testosterone 353 193 - 740 ng/dL 08/30/2024 6:39 PM EDT [facility] Sex Hormone Binding 54 19 - 76 nmol/L 08/30/2024 6:39 PM EDT [facility] Testosterone, Free 50.9 47.0 - 244.0 pg/mL 08/30/2024 6:39 PM EDT [facility] Comment: The concentration of free testosterone is derived from a mathematical expression based on the constant for the binding of testosterone to albumin and/or sex hormone binding globulin. Test Performed by [facility] [address] [place] [address] - [facility] 08/30/2024 18:39 Blood Venous blood specimen / Unknown Venipuncture / Unknown 08/30/2024 12:31 PM EDT 08/30/2024 12:47 PM EDT us West Rodrigues MD LAB BLOOD ORDERABLES Final Resul t [facility] [address] [place] [address] * (ABNORMAL) CBC auto differential (08/30/2024 12:31 PM EDT) Auto WBC 9.95 4.00 - 10.60 10*3/uL 08/30/2024 12:58 PM EDT [facility] ([facility]) RBC 3.03(L) 4.20 - 5.70 10*6/uL 08/30/2024 12:58 PM EDT [facility] ([facility]) Hemoglobin 9.3(L) 13.0 - 17.0 g/dL 08/30/2024 12:58 PM EDT [facility] ([facility]) Hematocrit 27.5(L) 39.0 - 50.0 % 08/30/2024 12:58 PM EDT [facility] ([facility]) MCV 90.8 82.0 - 98.0 fL 08/30/2024 12:58 PM EDT [facility] ([facility]) MCH 30.7 27.0 - 33.0 pg 08/30/2024 12:58 PM EDT [facility] ([facility]) MCHC 33.8 32.0 - 35.0 g/dL 08/30/2024 12:58 PM EDT [facility] ([facility]) RDW 13.9 11.5 - 15.0 % 08/30/2024 12:58 PM EDT [facility] ([facility]) Neutrophils % 78.9(H) 40.0 - 72.0 % 08/30/2024 12:58 PM T [facility] ([facility]) Lymphocytes % 11.9(L) 20.0 - 45.0 % 08/30/2024 12:58 PM T [facility] ([facility]) Monocytes % 6.9 5.0 - 12.0 % 08/30/2024 12:58 PM T [facility] ([facility]) Eosinophils % 1.6 0.0 - 6.0 % 08/30/2024 12:58 PM T [facility] ([facility]) Basophils % 0.3 0.0 - 1.0 % 08/30/2024 12:58 PM [facility] ([facility]) Neutrophils Absolute 7.85(H) 1.60 - 7.60 10*3/uL 08/30/2024 12:58 PM [facility] ([facility]) Lymphocytes Absolute 1.18(L) 1.20 - 4.00 10*3/uL 08/30/2024 12:58 PM [facility] ([facility]) Monocytes Absolute 0.69 0.10 - 1.00 10*3/uL 08/30/2024 12:58 PM [facility] ([facility]) Eosinophils Absolute 0.16 0.00 - 0.50 10*3/uL 08/30/2024 12:58 PM T [facility] ([facility]) Basophils Absolute 0.03 0.00 - 0.20 10*3/uL 08/30/2024 12:58 PM [facility] ([facility]) Platelets 167 150 - 400 10*3/uL 08/30/2024 12:58 PM [facility] ([facility]) nRBC % 0.0 0 % 08/30/2024 12:58 PM [facility] ([facility]) Immature Granulocytes % 0.4 0.0 - 1.0 % 08/30/2024 12:58 PM [facility] ([facility]) Immature Granulocytes Absolute 0.04 0.00 - 0.20 10*3/uL 08/30/2024 12:58 PM [facility] ([facility]) Blood Venous blood specimen / Unknown Venipuncture / Unknown 08/30/2024 12:31 PM EDT 08/30/2024 12:48 PM EDT West Rodrigues MD LAB BLOOD ORDERABLES Final Resul t [facility] ([facility]) [address] [place] [address] * Hepatitis C antibody (08/30/2024 12:31 PM EDT) [facility] Hepatitis C Ab Nonreactive Nonreactive 08/30/2024 3:51 PM EDT [facility] ([facility]) Blood Venous blood specimen / Unknown Venipuncture / Unknown 08/30/2024 12:31 PM EDT 08/30/2024 12:47 PM EDT West Rodrigues MD LAB BLOOD ORDERABLES Final Resul t Performing Organization Address City/[facility]/ZIP Co de Phone Number [facility] ([facility]) [address] [place] [address] * (ABNORMAL) Neelam-Magana virus VCA antibody panel (08/30/2024 12:31 PM EDT) [facility] EBV VCA IgG Interpretation Positive 09/01/2024 11:06 AM EDT [facility] ([facility]) NEELAM-MAGANA VIRUS VCA IGG 635.0 U/mL 09/01/2024 11:06 AM EDT [facility] ([facility]) EBV VCA IGM INTERPRETATION Positive(A) Negative 09/01/2024 11:06 AM EDT [facility] ([facility]) NEELAM-MAGANA VIRUS VCA IGM 60.2(H) < 36.0 U/mL U/mL 09/01/2024 11:06 AM EDT [facility] ([facility]) Comment: NORMAL RANGE < 36.0 NEGATIVE ; NO SIGNIFICANT LEVEL OF DETECTABLE EBV-VCA IgM AB >= 36.0 AND < 44.0 EQUIVOCAL; REPEAT TESTING SUGGESTED >= 44.0 POSITIVE ; SIGNIFICANT LEVEL OF DETECTABLE EBV-VCA IgM AB Blood Venous blood specimen / Unknown Venipuncture / Unknown 08/30/2024 12:31 PM EDT 08/30/2024 12:47 PM EDT Narrative [facility] ([facility]) - 09/01/2024 11:06 AM EDT Consistent with current or recent EBV infection. West Rodrigues MD LAB BLOOD ORDERABLES Final Resul t Performing Organization Address City/[facility]/ZIP Co de Phone Number [facility]) [address] [place] [address] * Hepatitis A antibody, IgM (08/30/2024 12:31 PM EDT) Hep A IgM Nonreactive Nonreactive 08/30/2024 3:51 PM EDT [facility] ([facility]) Blood Venous blood specimen / Unknown Venipuncture / Unknown 08/30/2024 12:31 PM EDT 08/30/2024 12:47 PM EDT West Rodrigues MD LAB BLOOD ORDERABLES Final Resul t Performing Organization Address City/[facility]/ZIP Co de Phone Number [facility]) [address] [place] [id number] * Rubeola antibody IgG (08/30/2024 12:31 PM EDT) Measles IgG Antibody Interpretation Positive 08/30/2024 6:19 PM EDT [facility] ([facility]) MEASLES IGG ANTIBODY >300.0 AU/mL 08/30/2024 6:19 PM EDT [facility] ([facility]) Comment: NORMAL RANGES: < 13.5 NEGATIVE; NO DETECTABLE IgG ANTIBODY TO RUBEOLA (MEASLES). >= 13.5 AND < 16.5 EQUIVOCAL; REPEAT TESTING SUGGESTED. >= 16.5 POSITIVE; INDICATES PRESENCE OF DETECTABLE IgG ANTIBODY TO RUBEOLA (MEASLES). Blood Venous blood specimen / Unknown Venipuncture / Unknown 08/30/2024 12:31 PM EDT 08/30/2024 12:47 PM EDT West Rodrigues MD LAB BLOOD ORDERABLES Final Resul t Performing Organization Address City/[facility]/ZIP Co de Phone Number [facility]) [address] [place] [address] * Hepatitis B core antibody, IgM (08/30/2024 12:31 PM EDT) Hep B Core Ab IgM Negative Negative 09/04/2024 11:41 AM EDT [facility] ([facility]) Comment: INTERPRETIVE INFORMATION: Hepatitis B Core Ab, IgM This assay should not be used for blood donor screening, associated re-entry protocols, or for screening Human Cells, Tissues and Cellular and Tissue-Based Products (HCT/P). Performed By: [employer] [address] [place] [address] Document Controller: Cody Gurrola MD, PhD CLIA Number: [id number] Blood Venous blood specimen / Unknown Venipuncture / Unknown 08/30/2024 12:31 PM EDT 08/30/2024 12:47 PM EDT West Rodrigues MD LAB BLOOD ORDERABLES Final Resul t Performing Organization Address [facility] Co de Phone Number [address] [address] * Hepatitis B core antibody, total (08/30/2024 12:31 PM EDT) Hep B Core Total Ab Nonreactive Nonreactive 08/30/2024 3:51 PM EDT [facility] ([facility]) Blood Venous blood specimen / Unknown Venipuncture / Unknown 08/30/2024 12:31 PM EDT 08/30/2024 12:47 PM EDT West Rodrigues MD LAB BLOOD ORDERABLES Final Resul t Performing Organization Address City/[facility]/ZIP Co de Phone Number [facility] ([facility]) [address] [place], [place] [id number] * CMV IgM (08/30/2024 12:31 PM EDT) Pathologist [facility] Cytomegalovirus IgM Ab Interpretation Negative Negative 09/06/2024 2:08 PM EDT [facility] ([facility]) CYTOMEGALOVIRUS IGM ANTIBODY <8.0 < 30.0 AU/mL AU/mL 09/06/2024 2:08 PM EDT [facility] ([facility]) Blood Venous blood specimen / Unknown Venipuncture / Unknown 08/30/2024 12:31 PM EDT 08/30/2024 12:47 PM EDT us West Rodrigues MD LAB BLOOD ORDERABLES Final Resul t [facility] ([facility]) [address] [place] [address] * (ABNORMAL) C-peptide (08/30/2024 12:31 PM EDT) [facility] C-Peptide 14.5(H) 0.5 - 3.3 ng/mL 09/01/2024 12:14 AM EDT [facility] ([facility]) Comment: INTERPRETIVE INFORMATION: Serum, C-Peptide Reference Interval applies to fasting specimens. To convert to nmol/L, multiply by 0.33 Performed By: [employer] [address] [place] [address] Document Controller: Cody Gurrola MD, PhD CLIA Number: [id number] Blood Venous blood specimen / Unknown Venipuncture / Unknown 08/30/2024 12:31 PM EDT 08/30/2024 12:47 PM EDT us West Rodrigues MD LAB BLOOD ORDERABLES Final Resul t [facility]) [address] [phone] * Rubella antibody, IgG (08/30/2024 12:31 PM EDT) [facility] RUBELLA IGG ANTIBODY 0.81 Index 08/30/2024 6:19 PM EDT [facility]) Comment: NORMAL RANGES: < 0.90 NEGATIVE; NO DETECTABLE IgG ANTIBODY TO RUBELLA. >= 0.90 AND < 1.00 EQUIVOCAL; REPEAT TESTING SUGGESTED. >= 1.00 POSITIVE; INDICATES PRESENCE OF DETECTABLE IgG ANTIBODY TO RUBELLA VIRUS. Rubella IgG Antibody Interpretation Negative 08/30/2024 6:19 PM EDT [facility] ([facility]) Blood Venous blood specimen / Unknown Venipuncture / Unknown 08/30/2024 12:31 PM EDT 08/30/2024 12:47 PM EDT West Rodrigues MD LAB BLOOD ORDERABLES Final Resul t Performing Organization Address City/[facility]/ZIP Co de Phone Number [facility]) [address] [place] [address] * Hepatitis B surface antigen (08/30/2024 12:31 PM EDT) Hepatitis B Surface Ag Nonreactive Nonreactive 08/30/2024 3:50 PM EDT [facility] ([facility]) Blood Venous blood specimen / Unknown Venipuncture / Unknown 08/30/2024 12:31 PM EDT 08/30/2024 12:47 PM EDT West Rodrigues MD LAB BLOOD ORDERABLES Final Resul t Performing Organization Address [facility] Co de Phone Number [facility]) [address] [place] [address] * Cytomegalovirus antibody, IgG (08/30/2024 12:31 PM EDT) Cytomegalovirus IgG Ab Interpretation Negative 09/01/2024 10:58 AM EDT [facility] ([facility]) CYTOMEGALOVIRUS IGG ANTIBODY <0.20 U/mL 09/01/2024 10:58 AM EDT [facility] ([facility]) Comment: NORMAL RANGES: < 0.60 NEGATIVE ; NO DETECTABLE IgG ANTIBODY TO CMV >= 0.60 and < 0.70 EQUIVOCAL; REPEAT TESTING SUGGESTED >= 0.70 POSITIVE ; INDICATES PRESENCE OF DETECTABLE IgG ANTIBODY TO CM Blood Venous blood specimen / Unknown Venipuncture / Unknown 08/30/2024 12:31 PM EDT 08/30/2024 12:47 PM EDT West Rodrigues MD LAB BLOOD ORDERABLES Final Resul t [facility] ([facility]) [address] [place] [address] * Protime-INR (08/30/2024 12:31 PM EDT) Protime 12.7 12.3 - 14.8 Seconds 08/30/2024 1:08 PM EDT [facility] ([facility]) INR 0.95 0.90 - 1.10 08/30/2024 1:08 PM EDT [facility] ([facility]) Comment: [facility] RECOMMENDED INR FOR WARFARIN THERAPY [...] MD LAB BLOOD ORDERABLES Final Resul t [facility] ([facility]) [address] [place] [address] * Type and screen (08/30/2024 12:31 PM EDT) ABO Grouping A 08/30/2024 2:11 PM EDT [facility] B[facility]OD [facility] Rh Type POS 08/30/2024 2:11 PM EDT [facility] Ab Scrn NEG 08/30/2024 2:11 PM EDT [facility] Blood Venous blood specimen / Unknown Venipuncture / Unknown 08/30/2024 12:31 PM EDT 08/30/2024 12:42 PM EDT us West Rodrigues MD LAB BLOOD BANK TEST ORDERABLES F inal Result Performing Organization Address [facility]/ZIP Co de Phone Number [facility] * PSA, Screening (08/30/2024 12:31 PM EDT) PSA 0.6 0.4 - 4 ng/mL 08/30/2024 1:19 PM EDT [facility] ([employer]) Blood Venous blood specimen / Unknown Venipuncture / Unknown 08/30/2024 12:31 PM EDT 08/30/2024 12:47 PM EDT us West Rodrigues MD LAB BLOOD ORDERABLES Final Resul t Performing Organization Address [facility] Co de Phone Number [facility] ([facility]) [address] [place] [address] * (ABNORMAL) B-type natriuretic peptide (08/30/2024 12:31 PM EDT) BNP 549(H) 0 - 100 pg/mL 08/30/2024 1:16 PM EDT [facility] ([facility]) Blood Venous blood specimen / Unknown Venipuncture / Unknown 08/30/2024 12:31 PM EDT 08/30/2024 12:48 PM EDT West Rodrigues MD LAB BLOOD ORDERABLES Final Resul t Performing Organization Address City/[facility] Co de Phone Number [facility]) [address] [place] [address] * (ABNORMAL) Hemoglobin A1c (08/30/2024 12:31 PM EDT) Hemoglobin A1C 7.0(H) 4.0 - 6.0 % 08/31/2024 8:15 AM EDT [facility] ([facility]) Estimated Average Glucose 154 mg/dL 08/31/2024 8:15 AM EDT [facility] ([facility]) Blood Venous blood specimen / Unknown Venipuncture / Unknown 08/30/2024 12:31 PM EDT 08/30/2024 12:48 PM EDT West Rodrigues MD LAB BLOOD ORDERABLES Final Resul t Performing Organization Address [facility] Co de Phone Number [facility]) [address] [place] [address] * Bilirubin, direct (08/30/2024 12:31 PM EDT) Bilirubin, Direct 0.1 0 - 0.2 mg/dL 08/30/2024 1:11 PM EDT [facility] ([facility]) Blood Venous blood specimen / Unknown Venipuncture / Unknown 08/30/2024 12:31 PM EDT 08/30/2024 12:47 PM EDT West Rodrigues MD LAB BLOOD ORDERABLES Final Resul t Performing Organization Address City/[facility]/ZIP Co de Phone Number [facility]) [address], [place] [phone] * (ABNORMAL) Lipid panel (08/30/2024 12:31 PM EDT) Triglycerides 198(H) <150 mg/dL 08/30/2024 1:11 PM EDT [facility] ([facility]) Comment: TRIGLYCERIDE REFERENCE RANGE: 20 YEARS AND OLDER CARDIOVASCULAR RISK LESS THAN 150 mg/dL LOW RISK 150 TO 199 mg/dL BORDERLINE RISK 200 mg/dL AND GREATER HIGH RISK Cholesterol 124 120 - 200 mg/dL 08/30/2024 1:11 PM EDT [facility] ([facility]) LDL Calculated 57 0 - 160 mg/dL 08/30/2024 1:11 PM EDT [facility] ([facility]) HDL 27 23 - 92 mg/dL 08/30/2024 1:11 PM EDT [facility] [facility] ([facility]) Non HDL Cholesterol 97 08/30/2024 1:11 PM EDT [facility] ([facility]) Total VLDL-C 40 0 - 40 mg/dL 08/30/2024 1:11 PM EDT [facility] ([facility]) Cholesterol/HDL Ratio 4.6 mg/dL 08/30/2024 1:11 PM EDT [facility] ([facility]) Blood Venous blood specimen / Unknown Venipuncture / Unknown 08/30/2024 12:31 PM EDT 08/30/2024 12:47 PM EDT us West Rodrigues MD LAB BLOOD ORDERABLES Final Resul t [facility] ([facility]) [address] [id number] * (ABNORMAL) Comprehensive metabolic panel (08/30/2024 12:31 PM EDT) Sodium 140 136 - 145 mmol/L 08/30/2024 1:11 PM EDT [facility] ([facility]) Potassium 3.8 3.5 - 5.1 mmol/L 08/30/2024 1:11 PM EDT [facility] ([facility]) Chloride 99 98 - 107 mmol/L 08/30/2024 1:11 PM EDT [facility] ([facility]) CO2 30 21 - 31 mmol/L 08/30/2024 1:11 PM EDT [facility] ([facility]) Anion Gap 15 7 - 20 mmol/L 08/30/2024 1:11 PM EDT [facility] ([facility]) BUN 40(H) 7 - 25 mg/dL 08/30/2024 1:11 PM [facility] ([facility]) Creatinine 10.34(H) 0.70 - 1.30 mg/dL 08/30/2024 1:11 PM [facility] ([facility]) BUN/Creatinine Ratio 3.9 08/20 1:11 PM [facility] ([facility]) Glucose 148(H) 70 - 100 mg/dL 08/30/2024 1:11 PM [facility] ([facility]) Calcium 8.6 8.6 - 10.3 mg/dL 08/30/2024 1:11 PM [facility] ([facility]) AST 13 13 - 39 U/L 08/30/2024 1:11 PM [facility] ([facility]) ALT (SGPT) 17 7 - 52 U/L 08/30/2024 1:11 PM [facility] ([facility]) Alkaline Phosphatase 115(H) 34 - 104 U/L 08/30/2024 1:11 PM [facility] ([facility]) Total Protein 6.6 6.0 - 8.3 g/dL 08/30/2024 1:11 PM [facility] ([facility]) Albumin 3.3(L) 3.5 - 5.7 g/dL 08/30/2024 1:11 PM [facility] ([facility]) Total Bilirubin 0.4 0.3 - 1.0 mg/dL 08/30/2024 1:11 PM [facility] ([facility]) eGFR 5.2(L) >60.0 mL/min/1 .73m*2 08/30/2024 1:11 PM [facility] ([facility]) Comment:[facility] s estimated glomerular filtration rate (eGFR) [...] PM EDT 08/30/2024 12:47 PM EDT us Samer Lilia BATISTA LAB BLOOD ORDERABLES Final Resul t [facility] ([facility]) [address] [place] [address] from Last 3 Months Insurance MEDICAID [place] MEDICARE MEDICARE MEDICAID [place] Care Teams Substance Abuse Services Director Relationship Specialty Start Date End Date Pierce Cartwright MD [address] [facility], [place] [address] PCP - General 12/11/21 Gopal Stevens MD [address] [place] [address] Consulting Physician Urology 08/30/24 Nephrology Consulting Physician Nephrology 01/12/22
--- OUTSIDE RECORDS SUMMARY | 2024-11-08 12:49 | XMS_ITS | Encounter Summary ---
Author Organization [facility] Address [address] [place] [address] Care Team Providers Care Corrosion Control Technician Name Role Phone Pierce Cartwright MD Primary Care Provider [phone] Franklin Stevens MD Unavailable Reason for Visit * Reason Comments Med Refill Encounter Details Date Type Department Care Team (Late Contact Info) Description 01/07/2023 Refill [facility] [address] [place] [address] Jeffery Sosa MD [address] [facility] [address] [facility] [place] [phone] Essential hypertension Social History Tobacco Use Types [...] Encounters Date Type Department Care Team (Late Contact Info) Description 11/16/2024 10:30 AM EDT Appointment [facility] Pulmonary Function Testing [address] [place] [address] 3rd [place] [address] 11/30/2024 3:00 PM EDT Follow-Up [facility] [address] [facility] [place] [address] Jerome Pena, PRINTED CIRCUIT BOARD ASSEMBLER [address] [place] [address] documented as of this encounter Visit Diagnoses Diagnosis Essential hypertension Unspecified essential hypertension documented in this encounter Care Teams Corrosion Control Technician Relationship Specialty Start Date End Date Pierce Cartwright MD [address] [place] [address] PCP - General 12/11/21 Franklin Stevens MD [address] [place] [address] Consulting Physician Urology 08/30/24 Nephrology Consulting Physician Nephrology 01/12/22 documented as of this encounter
--- OUTSIDE RECORDS SUMMARY | 2024-11-08 12:49 | XMS_ITS | Encounter Summary ---
Author Organization [facility] Address [address] [place] [address] Care Team Providers Care Sales Activity Manager Name Role Phone Pierce Cartwright MD Primary Care Provider [phone] Source Comments In the event this information is protected by the Federal Confidentiality of Alcohol and Drug AbusePatient Records regulations: The Federal rules restrict any use of the information to criminally investigate or prosecute any alcohol or drug abuse patient.[facility] Encounter Details Date Type Department Care Team (Late st Contact Info) Description 05/12/2022 Lab Requisition [facility] [address] [place] [address] Selam Larsen, DPFrank [address] [place] [address] Social History Tobacco Use Types Packs/Day Years [...] N ot on file 04/08/2022 Data from: https://www.neighborhoodatlas.[facility]/. Last address used for calculation [address] [...] INHIBITORY CONCENTRATION ([place]) 05/18/2022 8:02 AM EST [facility] Comment: Specifically Bacteroides fragilis,as identified by client. Bacteroides spp. are intrinsically resistant to ampicillin, penicillin, and aminoglycosides. Micro Specimen FOOT JOINT SYNOVIAL FLUID / Unknown 05/05/2022 1:41 PM EST 05/12/2022 4:45 AM EST Narrative [facility] - 05/18/2022 8:02 AM EST Organism Antibiotic Method Susceptibility Bacteroides fragilis group Ertapenem MINIMUM INHIBITORY CONCENTRATION(E-TEST) 0.25: Susceptible Bacteroides fragilis group Ampicillin/Sulbact MINIMUM INHIBITORY CONCENTRATION(E-TEST) 8: Susceptible Bacteroides fragilis group Metronidazole MINIMUM INHIBITORY CONCENTRATION(E-TEST) 0.125: Susceptible us Selam Larsen DPM LABORATORY Final Resu lt [facility] [address] documented in this encounter Visit Diagnoses Not on filedocumented in this encounter Care Teams Sales Activity Manager Relationship Specialty Start Date End Date Pierce Cartwright MD PCP - General Family Medicine 09/29/21 documented as of this encounter
--- OUTSIDE RECORDS SUMMARY | 2024-11-08 12:49 | XMS_ITS ---
Author Organization [facility] Address [address] [place] [address] Care Team Providers Care Product Management Specialist Name Role Phone Pierce Cartwright MD Primary Care Provider [phone] Franklin Stevens MD Unavailable Transplant Episode Kidney Candidate [facility] ([place], [place]) - [facility] Evaluation began on 08/30/2024 Marked as Deferred on 10/20/2024 Reason: Temporarily too Sick Kidney CoordinatorPierce Ventura RN Phone: N/A Fax: N/A Email: N/A Scores Score Value Updated Exceptions/Reas ons CPRA Not available EPTS (Calc) 79 11/08/2024 [place] Organ Diagnosis Organ Primary Contributory Kidney Diabetes Mellitus - Type II Care Team Name Role Phone Fax Email Pierce Ventura RN Kidney Coordinator N/A N/A N/A Cristobal Butts MD Referring Physician [phone] N/A Dana Sommers Txp Farm Service Adviser N/A N/A N/A Franklin Stevens MD Transplant Physician [phone] N/A West Rodrigues MD Forest Economics Professor [phone] N/A Events Pre-Transplant Referred: 03/28/2024 Evaluation began: 08/30/2024 Dialysis History Dialysis History Start End Type Comments Center 06/17/2022 Peritoneal everyday [facility] Instilling Values. Dialysis Center Information Center Phone Fax Address [facility] [place]. [phone] [address] [facility] [address] [facility] [address]
--- OUTSIDE RECORDS SUMMARY | 2024-11-08 12:49 | XMS_ITS | Clinical Summary ---
Author Organization [facility] Address [address] [place], [place] [id number] Care Team Providers Care Rn Cardiac Cath Name Role Phone Pierce Cartwright MD Primary Care Provider [phone] Allergies Active Allergy Reactions Criticality Noted Date Comments Sulfa (Sulfonamide Antibiotics) Unknown 09/19 Medications aspirin 81 mg cap Take by mouth. Activ e bumetanide (BUMEX) 2 mg tablet Take 2 mg by mouth once daily. Active carvedilol (COREG) 25 mg tablet Take 25 mg by mouth twice daily with meals. 1/2 tabstwice daily Active ferrous sulfate 325 mg (65 mg iron) tablet Take 325 mg by mouth daily with breakfast. Active hydrALAZINE (APRESOLINE) 50 mg tablet Take 50 mg by mouth three times daily. Active insulin detemir (LEVEMIR FLEXPEN SUBCUTANEOUS) Inject subcutaneously . Active levothyroxine 100 mcg cap Take 100 mcg by mouth daily before breakfast. Active Multivitamin capsule Take 1 capsule by mouth once daily. Active NIFEdipine XL (ADALAT CC) 30 mg 24 hr tablet Take 30 mg by mouth once daily. Active potassium chloride (K-TAB) 10 mEq tablet Take 10 mEq by mouth twice daily. Active Omeprazole Magnesium 20 mg tablet Take 20 mg by mouth once daily. Active sodium bicarbonate 650 mg tablet Take 650 mg by mouth twice daily. Active ezetimibe (ZETIA) 10 mg tablet Take 10 mg by mouth once daily. Active Active Problems Problem Noted Date Diagnosed Date Anemia due to stage 3b chronic kidney disease Immunizations Immunization Administration Dates Next Due COVID-19 original vaccine, a ge 12+ yr, monovalent (Fiteeza-OrderMyGear - [facility]) 06/11/2021 COVID-19 original vaccine, a ge 12+ yr, monovalent (PFIZER-BIONTECH - PURPLE TOP) 06/11/2021,07/29/2020,07/08/2020 Family History Medical History Relation Comments Diabetes Father Heart disease Father Mental illness Father Cancer Mother Relation Status Comments Father Mother Social History Tobacco Use Types Packs/Day Years Used Date Smoking Tobacco: Never Passive Smoke Exposure: Past Smokeless Tobacco: Never Tobacco Cessation:Counseling Given: Not Answered Alcohol Use Standard Drinks/Week Comments Not Currently 0 (1 standard drink = 0.6 oz pur e alcohol) PHQ-2 Answer Date Recorded PHQ-2 score 0 04/16/2022 Area Deprivation Index Answer Date Germán rded National Score (1-100), lower number is lower ri sk 91 04/08/2022 State Score (1-10), lower number is lower risk N ot on file 04/08/2022 Data from: https://www.neighborhoodatlas.medicine.[facility]/. Last address used for calculation [address] 04/08/2022 Sex and Gender Information Value Date Recorded Sex Assigned at Not on file Legal Sex Male 1:35 PM EDT Gender Identity Not on file Sexual Orientation Not on file Last Filed Vital Signs Vital Sign Reading Time Taken Comments Blood Pressure 136/61 04/16/2022 2:51 PM EST Pulse 59 04/16/2022 2:51 PM EST Temperature 36.1 C (97 F) 04/16/2022 2:51 PM EST Respiratory Rate 18 04/16/2022 2:51 PM EST Oxygen Saturation 95% 04/16/2022 2:51 PM EST Inhaled Oxygen Concentration - - Weight 89.8 kg (198 lb) 04/16/2022 2:51 PM EST Height 193 cm (6' 3.98 ) 04/16/2022 2:51 PM EST Body Mass Index 24.11 04/16/2022 2:51 PM EST Plan of Treatment Health Maintenance Due Date Last Done Comments Annual PCP Team Chronic Dise ase Visit 1982 Anxiety Screening 1982 Depression Screening 1982 HIV Screening 1982 Hepatitis C Screening 1982 DTaP,Tdap,Td Vaccine (1 - Tdap) 08/01/1983 Lipid Screening 08/01/1999 CT Colonography 2009 Cologuard (FIT-DNA) 2009 Colonoscopy 2009 Colorectal Cancer Screening 2009 Fecal Occult Blood 2009 Prostate Cancer Screening Discussion 2009 Sigmoidoscopy 2009 Pneumococcal Vaccine: 50+ (1 of 1 - PCV) 2014 Shingrix Vaccine (1 of 2) 2014 Hemoglobin/Hematocrit 04/16/2023 04/16/2022 , 03/18/2022, 02/18/2022, Additional history exists Serum Creatinine 04/16/2023 04/16/2022, , 02/18/2022, Additional history exists RSV Vaccine (1 - Risk 60-74 years 1-dose series) 2024 Influenza Vaccine (#1) 2024 Diabetes Screening 04/16/2025 04/16/2022, 1 05/19/2021, 02/18/2022, Additional history exists Procedures Procedure Name Priority Date/Time Associated Diagnosis Comments CBC + DIFF Routine 04/16/2022 2:48 PM EST Stage 3b chronic kidney disease (HCC) Anemia due to stage 3b chronic kidney disease (HCC) Elevated serum immunoglobulin free light chains COMPREHENSIVE METABOLIC PANEL Routine 04/16/2022 2:48 PM EST Stage 3b chronic kidney disease (HCC) Anemia due to stage 3b chronic kidney disease (HCC) Elevated serum immunoglobulin free light chains from Last 3 Months or Most Recently Relevant to Health Maintenance Results * (ABNORMAL) COMP METABOLIC PANEL (04/16/2022 2:48 PM EST) Protein, Total 7.0 6.3 - 8.0 g/dL 04/16/2022 3:14 PM EST [facility] Albumin 3.7(L) 3.9 - 4.9 g/dL 04/16/2022 3:14 PM EST [facility] Calcium, Total 8.1(L) 8.5 - 10.2 mg/dL 04/16/2022 3:14 PM EST [facility] Bilirubin, Total 0.5 0.2 - 1.3 mg/dL 04/16/2022 3:14 PM [facility] Alkaline Phosphatase 195(H) 38 - 113 U/L 04/16/2022 3:14 PM [facility] AST 16 14 - 40 U/L 04/16/2022 3:14 PM [facility] ALT 20 10 - 54 U/L 04/16/2022 3:14 PM [facility] Glucose 146(H) 74 - 99 mg/dL 04/16/2022 3:14 PM [facility] Comment: The [place] Diabetes Association (ADA) provides guidance for cutoff [...] Standards of Medical Care in Diabetes 2016, [place] Diabetes Association. Diabetes Care. 2016.39(Suppl 1). BUN 81(H) 9 - 24 mg/dL 04/16/2022 3:14 PM [facility] Creatinine 4.53(H) 0.73 - 1.22 mg/dL 04/16/2022 3:14 PM [facility] Sodium 142 136 - 144 mmol/L 04/16/2022 3:14 PM [facility] Potassium 4.2 3.7 - 5.1 mmol/L 04/16/2022 3:14 PM [facility] Chloride 112(H) 97 - 105 mmol/L 04/16/2022 3:14 PM [facility] CO2 17(L) 22 - 30 mmol/L 04/16/2022 3:14 PM [facility] Anion Gap 13 9 - 18 mmol/L 04/16/2022 3:14 PM [facility] Estimated Glomerular Filtration Rate 14(L) >=60 mL/min/1. 73m 04/16/2022 3:14 PM EST [facility] Comment:Estimated Glomerular Filtration Rate (eGFR) is calculated using the 2020 CKD-EPI creatinine equation. This equation utilizes serum creatinine, sex, and age as parameters. The creatinine assay has traceable calibration to isotope dilution- mass spectrometry. Refer to KDIGO guidelines for clinical interpretation. In patients with unstable renal function, e.g. those with acute kidney injury, the eGFR may not accurately reflect actual GFR. Blood BLOOD SPECIMEN / Unknown Venipuncture / Unknown 04/16/2022 2:48 PM EST 04/16/2022 2:48 PM EST Conrad Rome MD LABORATORY Final Result [facility] [address] [place] [address] * (ABNORMAL) CBC + DIFF (04/16/2022 2:48 PM EST) WBC 5.82 3.70 - 11.00 k/uL 04/16/2022 2:52 PM EST [facility] RBC 3.62(L) 4.20 - 6.00 m/uL 04/16/2022 2:52 PM [facility] Hemoglobin 10.5(L) 13.0 - 17.0 g/dL 04/16/2022 2:52 PM EST [facility] Hematocrit 32.2(L) 39.0 - 51.0 % 04/16/2022 2:52 PM EST [facility] MCV 89.0 80.0 - 100.0 fL 04/16/2022 2:52 PM [facility] MCH 29.0 26.0 - 34.0 pg 04/16/2022 2:52 PM [facility] MCHC 32.6 30.5 - 36.0 g/dL 04/16/2022 2:52 PM EST [facility] RDW-CV 13.3 11.5 - 15.0 % 04/16/2022 2:52 PM [facility] Platelet Count 136(L) 150 - 400 k/uL 04/16/2022 2:52 PM [facility] MPV 11.5 9.0 - 12.7 fL 04/16/2022 2:52 PM [facility] Neutrophils % 76.2 % 04/16/2022 2:52 PM [facility] Abs Neut 4.44 1.45 - 7.50 k/uL 04/16/2022 2:52 PM [facility] Lymphocytes % 11.0 % 04/16/2022 2:52 PM [facility] Abs Lymph 0.64(L) 1.00 - 4.00 k/uL 04/16/2022 2:52 PM [facility] Monocytes % 10.7 % 04/16/2022 2:52 PM [facility] Abs Gregg 0.62 <0.87 k/uL 04/16/2022 2:52 PM [facility] Eosinophils % 1.4 % 04/16/2022 2:52 PM [facility] Abs Eosin 0.08 <0.46 k/uL 04/16/2022 2:52 PM [facility] Basophils % 0.5 % 04/16/2022 2:52 PM [facility] Abs Baso 0.03 <0.11 k/uL 04/16/2022 2:52 PM [facility] Immature Granulocytes % 0.2 % 04/16/2022 2:52 PM [facility] Abs Immature Gran <0.03 <0.10 k/uL 04/16/2022 2:52 PM [facility] NRBC 0.0 /100 WBC 04/16/2022 2:52 PM [facility] Absolute nRBC <0.01 <0.01 k/uL 04/16/2022 2:52 PM EST [facility] Diff Type Auto 04/16/2022 2:52 PM EST [facility] Blood BLOOD SPECIMEN / Unknown Venipuncture / Unknown 04/16/2022 2:48 PM EST 04/16/2022 2:48 PM EST Narrative [facility] - 04/16/2022 2:52 PM EST This is an appended report. These results have been appended to a previously verified report. us Conrad Rome MD LABORATORY Final Result [facility] [address] [place] [address] from Last 3 Months or Most Recently Relevant to Health Maintenance Insurance [employer] [place] Care Teams Rn Cardiac Cath Relationship Specialty Start Date End Date Pierce Cartwright MD PCP - General Family Medicine 09/29/21
--- OUTSIDE RECORDS SUMMARY | 2024-11-08 12:50 | XMS_ITS | Encounter Summary ---
Author Organization [facility] Address [address] [place] [address] Care Team Providers Care Electrician'S Assistant Name Role Phone Pierce Cartwright MD Primary Care Provider [phone] Franklin Stevens MD Unavailable Reason for Referral * Imaging (Routine) - Pending Review Specialty Diagnoses / Procedures Referred By Aileen maldonado Referred To Contact Cardiology Diagnoses Coronary artery disease involving barrow coronary artery of barrow heart without angina pectoris PVD (peripheral vascular disease) Procedures Vascular US lower extremity vein mapping bilateral Jerome Pena CNP [address] [place] [address] Phone: tel: fax: Referral ID Status Reason Start Date Expiration Date Visits Requested Visits Authorized [id number] Pending Review Perform Procedure 11/01/2024 11/01/2025 1 1 * Imaging (Routine) - Pending Review Specialty Diagnoses / Procedures Referred By Conttimothy maldonado Referred To Contact Cardiology Diagnoses Coronary artery disease involving barrow coronary artery of barrow heart without angina pectoris PVD (peripheral vascular disease) Procedures Vascular US lower extremity arterial duplex bilateral Jerome Pena CNP [address] [place] [address] Phone: tel: fax: Referral ID Status Reason Start Date Expiration Date Visits Requested Visits Authorized [id number] Pending Review Perform Procedure 11/01/2024 11/01/2025 1 1 * Imaging (Routine) - Pending Review Specialty Diagnoses / Procedures Referred By Aileen maldonado Referred To Contact Cardiology Diagnoses Coronary artery disease involving barrow coronary artery of barrow heart without angina pectoris PVD (peripheral vascular disease) Other specified symptoms and signs involving the circulatory and respiratory systems Procedures Vascular US carotid artery duplex bilateral Jerome Pena CNP [address] [place] [address] Phone: tel: fax: Referral ID Status Reason Start Date Expiration Date Visits Requested Visits Authorized [id number] Pending Review Perform Procedure 11/01/2024 11/01/2025 1 1 Encounter Details Date Type Department Care Team (Late st Contact Info) Description 11/01/2024 Orders Only Cardiothoracic Surgery [address] [place] [address] Jerome Pena CNP [address] [place] [address] Coronary artery disease involving barrow coronary artery of barrow heart without angina pectoris (Primary Dx); PVD (peripheral vascular disease); Shortness of breath; Other specified symptoms and signs involving the circulatory and respiratory systems Social History Tobacco Use Types Packs/Day Years Used Date Smoking Tobacco: Former Cigarettes 1 12 3 - 1994 Smokeless Tobacco: Never Alcohol Use Standard Drinks/Week Comments Not Currently 0 (1 standard drink = 0.6 oz pur e alcohol) PHQ-2 Answer Date Recorded Patient Health Questionnaire-2 Score 0 10/31/2024 PR Safety & Environment Answer Date Rec orded [...] Info) Description 11/16/2024 10:30 AM EDT Appointment [facility] Pulmonary Function Testing [address] [facility] 3rd [place] [address] 11/30/2024 3:00 PM EDT Follow-Up [facility] Heart [facility] Vascular [facility] [address] [place] [address] Becky, , FOOTWEAR SALES REPRESENTATIVE [address] [place] [address] Scheduled Orders Name Type Priority Associated Diagnoses Orde r Schedule Vascular US carotid artery duplex bilateral Vascular Ultrasound Routine Coronary artery disease involving barrow coronary artery of barrow heart without angina pectoris PVD (peripheral vascular disease) Other specified symptoms and signs involving the circulatory and respiratory systems Expected: 11/01/2024 (Approximate), Expires: 01/01/2025 Vascular US lower extremity arterial duplex bilateral Vascular Ultrasound Routine Coronary artery disease involving barrow coronary artery of barrow heart without angina pectoris PVD (peripheral vascular disease) Expected: 11/01/2024 (Approximate), Expires: 01/01/2025 Vascular US lower extremity vein mapping bilateral Vascular Ultrasound Routine Coronary artery disease involving barrow coronary artery of barrow heart without angina pectoris PVD (peripheral vascular disease) Expected: 11/01/2024 (Approximate), Expires: 01/01/2025 Pulmonary function testing Spirometry; DLCO PFT Routine Coronary artery disease involving barrow coronary artery of barrow heart without angina pectoris PVD (peripheral vascular disease) Shortness of breath Expected: 11/01/2024 (Approximate), Expires: 01/01/2025 documented as of this encounter Visit Diagnoses Diagnosis Coronary artery disease involving barrow coronary artery of barrow heart without angina pectoris- Primary PVD (peripheral vascular disease) Unspecified peripheral vascular disease Shortness of breath Other specified symptoms and signs involving the circulatory and respiratory systems documented in this encounter Care Teams Electrician'S Assistant Relationship Specialty Start Date End Date Pierce Cartwright MD [address] [facility] [address] [address] PCP - General 12/11/21 Franklin Stevens MD [address] [place] [id number] Consulting Physician Urology 08/30/24 Nephrology Consulting Physician Nephrology 01/12/22 documented as of this encounter
--- OUTSIDE RECORDS SUMMARY | 2024-11-08 12:50 | XMS_ITS | Encounter Summary ---
Author Organization [facility] Address [address] [place] [address] Care Team Providers Care Liquor Department Manager Name Role Phone Pierce Cartwright MD Primary Care Provider Franklin Stevens MD Unavailable Encounter Details Date Type Department Care Team (Late st Contact Info) Description 11/06/2024 Telephone [facility] [address] [place] [address] Saida Briggs MA Social History Tobacco Use Types Packs/Day Years Used Date Smoking Tobacco: Former Cigarettes 1 1 983 - 1994 Smokeless Tobacco: Never Alcohol Use Standard Drinks/Week Comments Not Currently 0 (1 standard drink = 0.6 oz pur e alcohol) PHQ-2 Answer Date Recorded Patient Health Questionnaire-2 Score 0 10/31/2024 [place] Safety & Environment Answer Date Rec orded [...] encounter Miscellaneous Notes * Telephone Encounter - Saida Briggs MA - 11/06/2024 3:01 PM EDT Phone call from patients , states they talked to the thoracic surgeon in reference to Johnhaving bypass, per they told the thoracic surgeon they wanted to wait until after the 1st of the year, surgeon advised them to speak to his livestock yard attendant. advise that they are going on vacation in December and he wants to go on this trip, also states he wants to spend 1 last sylvia w ith his family as he feels he will not make it from having open heart surgery. wants to know if they need to follow up with you or just plan on doing the surgery after the first of the year. Please advise. documented in this encounter Plan of Treatment Upcoming Encounters Date Type Department Care Team (Late st Contact Info) Description 11/16/2024 10:30 AM EDT Appointment [facility] Pulmonary Function Testing [address] [place] [address] 3rd [place] [phone] 11/30/2024 3:00 PM EDT Follow-Up [facility] [address] [place] [phone] Jerome Pena, CHILDREN'S SERVICE WORKER [address] [place] [address] documented as of this encounter Visit Diagnoses Not on filedocumented in this encounter Care Teams Liquor Department Manager Relationship Specialty Start Date End Date Pierce Cartwright MD [address] [facility] [address] [address] PCP - General 12/11/21 Franklin Stevens MD [address] [place] [address] Consulting Physician Urology 08/30/24 Nephrology Consulting Physician Nephrology 01/12/22 documented as of this encounter
--- OUTSIDE RECORDS SUMMARY | 2024-11-08 12:50 | XMS_ITS | Patient Health Record ---
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 Name Role Phone Gamal Cartwright Primary Care Provider Allergies Allergen (clinical drug ingredient) Drug/Non Drug Allergy documented on EMR Reaction Allergy Type Onset Date Status Substance with sulfonamide structure and antibacterial mechanism of action (substance) Sulfa Antibiotics Unknown Drug Allergy Active Results Component Value Reference Range Notes LIPID PROFILE Reviewed date:06/20/2024 04:26:01 PM Interpretation: Performing Lab: Notes/Report: [facility] , Triglycerides 170 <=150 mg/dL Cholesterol 117 <=200 mg/dL HDL Cholesterol 36 40-60 mg/dL > or =60 mg/dl - LOW CARDIOVASCULAR RISK <40 mg/dl - HIGH CARDIOVASCULAR RISK LDL Cholesterol Calculated 47.0 <100 mg/dl OPTIMAL 100-129 mg/dl NEAR OR ABOVE OPTIMAL 130-159 mg/dl BORDERLINE HIGH 160-189 mg/dl HIGH >190 mg/dl VERY HIGH VLDL CHOLESTEROL 34.0 Chol HDL Ratio 3.2 3.3 - 4.4 LOW RISK 4.4 - 7.1 AVERAGE RISK 7.1 - 11.0 MODERATE RISK >11.0 HIGH RISK Performing Lab: see note ML - [facility] PROF CHEM 8 (BAS METB) Reviewed date:10/17/2024 02:31:36 PM Interpretation: Performing Lab: Notes/Report: [facility] , Sodium 139 136-145 mmol/L Potassium 3.8 3.5-5.1 mmol/L Chloride 100 98-107 mmol/L Carbon Dioxide 31.1 21.0-32.0 mmol/L Anion Gap 11.7 Glucose 158 74-106 mg/dL Blood Urea Nitrogen 37.0 7.0-18.0 mg/dL Creatinine 11.11 0.70-1.30 mg/dL RESULTS CALL ED TO SADIE NAIR RN Estimated GFR ( Joan 6 >=60 mL/min/1.73m 2 Estimated GFR (Non- Una 5 >=60 mL/min/1.73m 2 BUN Creatinine Ratio 3.3 Calcium 8.8 8.5-10.1 mg/dL Performing Lab: see note ML - [facility] LB CBC AUTO DIFF Reviewed date:10/17/2024 02:31:36 PM Interpretation: Performing Lab: Notes/Report: [facility] , White Blood Count 8.4 4.0-11.0 10 3/uL Red Blood Count 2.87 4.70-6.10 10 6/uL Hemoglobin 9.1 14.0-18.0 g/dL Hematocrit 27.2 42.0-54.0 % Mean Corpuscular Volume 94.8 80.0-94.0 fL Mean Corpuscular Hemoglobin 31.7 25.9-34.0 pg Mean Corpuscular HGB Conc 33.5 29.9-35.2 g/dL Red Cell Distribution Width 13.7 11.0-15.0 % Platelet Count 155 150-450 10 3/uL Mean Platelet Volume 10.0 9.5-13.5 fL Neutrophils Percent Auto 79.0 43.0-75.0 % Lymphocytes Percent Auto 11.7 20.5-60.0 % Monocytes Percent Auto 7.4 1.7-12.0 % Eosinophils Percent Auto 1.1 0.9-7.0 % Basophils Percent Auto 0.2 0.2-2.0 % Immature Granulocytes Pct Auto 0.6 0.0-0.5 % Neutrophils Absolute Auto 6.6 1.4-6.5 10 3/uL Lymphocytes Absolute Auto 1.0 1.2-3.8 10 3/uL Monocytes Absolute Auto 0.6 0.3-0.8 10 3/uL Eosinophils Absolute Auto 0.1 0.0-0.7 10 3/uL Basophils Absolute Auto 0.0 0.0-0.1 10 3/uL Immature Granulocytes Abs Auto 0.05 0.00-0.03 10 3/uL Performing Lab: see note ML - [facility] CA echo doppler complete Reviewed date:05/16/2024 04:09:16 PM Interpretation: Performing Lab: Notes/Report: Source Facility: [facility]-[address] [place] [address] [place] [address] Cardiology Report Signed Patient: GOPAL YATES MR#: [id number] : 1965 Acct:[id number] Age/Sex: 58 / M ADM Date: 05/16/24 Loc: CARD Attending Dr: CASIMIRO SOSA Ordering Physician: CASIMIRO SOSA Date of Service: 05/16/24 Procedure(s): CA echo doppler complete Accession Number(s): [id number] cc: Pierce Cartwright M.D.; CASIMIRO SOSA Patient Name: GOPAL YATES MR#: [id number] : 1965 Exam Date: 05/16/2024 Ordering Doctor: DR CASIMIRO SOSA M.D. ECHOCARDIOGRAM REPORT PROCEDURE: CA ECHO DOPPLER COMPLETE INDICATIONS: Heart failure with reduced ejection fraction, cardiac stent, hypertension, diabetes COMPARISON: None. DESCRIPTION: COMPLETE ECHOCARDIOGRAM Real-time transthoracic echocardiography with 2D, M-mode, spectral and color flow Doppler performed. QUALITY: Technical quality was good. LEFT VENTRICLE: Normal chamber size. Proximal septal hypertrophy (sigmoid septum). Mild concentric left ventricular hypertrophy. Hypokinesis of the inferolateral wall. LV EF: Lower limits of normal left ventricular ejection fraction, (50-55%). DIASTOLIC: Diastolic function is indeterminate. ATRIAL SEPTUM: Visually appears intact. LEFT ATRIUM: Mild dilatation. RIGHT ATRIUM: Mild dilatation. RIGHT VENTRICLE: Normal chamber size. Normal systolic function. TRICUSPID VALVE: Normal mobility and thickness. No stenosis with trivial regurgitation. No evidence of pulmonary hypertension. RVSP 18 mmHg MITRAL VALVE: Normal mobility and thickness. No evidence of mitral valve stenosis. Mild mitral annular calcification. Trivial mitral regurgitation. AORTIC VALVE: Normal trileaflet appearance. Thickened aortic valve. Normal leaflet mobility. No evidence of aortic valve stenosis. Trivial aortic regurgitation. AORTIC ROOT: The aortic root is moderately dilated measuring 4.1 cm. Ascending aorta is normal in size, measuring 2.9 cm. PULMONIC VALVE: Normal thickness and mobility. No stenosis. Trivial regurgitation. PERICARDIUM: No evidence of pericardial effusion. IVC: Collapses with inspirations. IVC is normal in size. PLEURA: CONCLUSION: 1. The left ventricular is normal in size and exhibits mild concentric hypertrophy with low normal systolic function. There is hypokinesis of the inferior lateral wall. Estimated LVEF is 50 to 55%. 2. Normal right ventricular size and systolic function. 3. Mild biatrial dilatation. 4. No significant valvular dysfunction. 5. Moderately dilated aortic root measuring 4.1 cm. 6. Normal right-sided pressures. Adult Echocardiography Procedure Report Left Ventricle LVEDD (3.7 - 5.6 cm): 5.20 cm LVESD (2.2 - 4.0 cm): 4.00 cm LVIVS thickness (0.6 - 1.2 cm): 1.94 cm LVPW thickness (0.5 - 1.0 cm): 0.93 cm e': 0.10 m/s E - e': 7.83 LVOT Max Gradient: 4.48 mm[Hg] LVOT Area (cm2): 1.06 m/s Peak Velocity (LVOT): 1.06 m/s Mean Velocity (LVOT): 0.75 m/s LVOT Diameter 2.66 cm Left Atrium LA Volume Index (2D A2C): 39.05 ml/m2 Left Atrium Systolic Dimension: 4.94 cm Mitral Valve MV E to A Ratio: 1.37 Mitral Valve A-Wave Peak Velocity: 0.56 m/s Mitral Valve E-Wave Peak Velocity: 0.76 m/s Right Ventricle Aorta AO Root Diam: 4.06 cm Ascending Ao Diam: 2.88 cm Aortic Valve AoV Area (Peak Roderick): 5.14 cm2, 5.14 cm2 AoV Area (VTI): 4.81 cm2, 4.81 cm2 Peak Velocity(Antegrade Flow): 1.14 m/s Peak Gradient(Antegrade Flow): 5.23 mm[Hg] Mean Velocity(Antegrade Flow): 0.82 m/s Mean Gradient(Antegrade Flow): 3.05 mm[Hg] Velocity Time Integral: 28.01 cm Tricuspid Valve Peak Velocity (Regurgitant Flow): 1.94 m/s Pulmonic Valve Mean Gradient: 2.59 mm[Hg] Mean Velocity: 0.75 m/s Peak Velocity: 1.15 m/s, 1.19 m/s Peak Gradient: 5.63 mm[Hg], 5.33 mm[Hg] Right Atrium Right Atrium Systolic Pressure: 84.77 ml, 84.77 ml Dictated by: Casimiro Sosa M.D. on 05/16/2024 at 15:55 Approved by: Casimiro Sosa M.D. on 05/16/2024 at 15:58 Dictated By: CASIMIRO SOSA Signed By: 05/16/24 1600 DD/ 1559 TD/TT: Supervisor [employer] Vehicle: [place] [address] Cardiology Report Signed Patient: GOPAL YATES MR#: [id number] : 1965 Acct:[id number] Age/Sex: 58 / M ADM Date: 05/16/24 Loc: CARD Attending Dr: CASIMIRO SOSA Ordering Physician: CASIMIRO SOSA Date of Service: 05/16/24 Procedure(s): CA ech o doppler complete Accession Number(s): [id number] cc: Pierce Cartwright M.D. ; CASIMIRO SOSA Patient Name: GOPAL YATES MR#: [id number] : 1965 Exam Date: 05/16/2024 Ordering Doctor: DR CASIMIRO SOSA M.D. ECHOCARDIOGRAM REPORT PROCEDURE: CA ECHO DOPPLER COMPLETE INDICATIONS: Heart failure with reduced ejection fraction, cardiac stent, hypertension, diabetes COMPARISON: None. DESCRIPTION: COMPLET E ECHOCARDIOGRAM Real-time transthoracic echocardiography wit h 2D, M-mode, spectral and color flow Doppler performed. QUALITY: Technical quality was good. LEFT VENTRICLE: Norm al chamber size. Proximal septal hypertrophy (sigmoid septum). Mild concen tric left ventricular hypertrophy. Hypokinesis of the inferolateral wall. LV EF: Lower limits of normal left ventricular ejection fraction, (50-55%). DIASTOLIC: Diastolic function is indeterminate. ATRIAL SEPTUM: Visua lly appears intact. LEFT ATRIUM: Mild dilatation. RIGHT ATRIUM: Mild dilatation. RIGHT VENTRICLE: Nor mal chamber size. Normal systolic function. TRICUSPID VALVE: Nor mal mobility and thickness. No stenosis with trivial regurgitation. No evidence of pulmonary hypertension. RVSP 18 mmHg MITRAL VALVE: Normal mobility and thickness. No evidence of mitral valve stenosis. Mild angelina l annular calcification. Trivial mitral regurgitation. AORTIC VALVE: Normal trileaflet appearance. Thickened aortic valve. Normal leaflet mobil ity. No evidence of aortic valve stenosis. Trivial aortic regurgitation. AORTIC ROOT: The aor tic root is moderately dilated measuring 4.1 cm. Ascending aorta is normal in size, measuring 2.9 cm. PULMONIC VALVE: Norm al thickness and mobility. No stenosis. Trivial regurgitation. PERICARDIUM: No evid ence of pericardial effusion. IVC: Collapses with inspirations. IVC is normal in size. PLEURA: CONCLUSION: 1. The left ventricu lar is normal in size and exhibits mild concentric hypertrophy with low normal systolic function. There is hypokinesis of the inferior lateral wal l. Estimated LVEF is 50 to 55%. 2. Normal right ventricular size and systolic function. 3. Mild biatrial dilatation. 4. No significant valvular dysfunction. 5. Moderately dilate d aortic root measuring 4.1 cm. 6. Normal right-side d pressures. Adult Echocardiograp hy Procedure Report Left Ventricle LVEDD (3.7 - 5.6 cm) : 5.20 cm LVESD (2.2 - 4.0 cm) : 4.00 cm LVIVS thickness (0.6 - 1.2 cm): 1.94 cm LVPW thickness (0.5 - 1.0 cm): 0.93 cm e': 0.10 m/s E - e': 7.83 LVOT Max Gradient: 4 .48 mm[Hg] LVOT Area (cm2): 1.0 6 m/s Peak Velocity (LVOT) : 1.06 m/s Mean Velocity (LVOT) : 0.75 m/s LVOT Diameter 2.66 cm Left Atrium LA Volume Index (2D A2C): 39.05 ml/m2 Left Atrium Systolic Dimension: 4.94 cm Mitral Valve MV E to A Ratio: 1.37 Mitral Valve A-Wave Peak Velocity: 0.56 m/s Mitral Valve E-Wave Peak Velocity: 0.76 m/s Right Ventricle Aorta AO Root Diam: 4.06 cm Ascending Ao Diam: 2 .88 cm Aortic Valve AoV Area (Peak Roderick): 5.14 cm2, 5.14 cm2 AoV Area (VTI): 4.81 cm2, 4.81 cm2 Peak Velocity(Antegr reji Flow): 1.14 m/s Peak Gradient(Antegr reji Flow): 5.23 mm[Hg] Mean Velocity(Antegr reji Flow): 0.82 m/s Mean Gradient(Antegr reji Flow): 3.05 mm[Hg] Velocity Time Integr al: 28.01 cm Tricuspid Valve Peak Velocity (Regurgitant Flow): 1.94 m/s Pulmonic Valve Mean Gradient: 2.59 mm[Hg] Mean Velocity: 0.75 m/s Peak Velocity: 1.15 m/s, 1.19 m/s Peak Gradient: 5.63 mm[Hg], 5.33 mm[Hg] Right Atrium Right Atrium Systoli c Pressure: 84.77 ml, 84.77 ml Dictated by: Casimiro Sosa M.D. on 05/16/2024 at 15:55 Approved by: Casimiro Sosa M.D. on 05/16/2024 at 15:58 Dictated By: CASIMIRO SOSA Signed By: 05/16/241599 DD/ 1559 TD/TT: Supervisor [employer] Vehicle: LIPID PROFILE Reviewed date:12/21/2023 04:00:03 PM Interpretation: Performing Lab: Notes/Report: [facility] , Triglycerides 187 <=150 mg/dL Cholesterol 93 <=200 mg/dL HDL Cholesterol 33 40-60 mg/dL > or =60 mg/dl - LOW CARDIOVASCULAR RISK <40 mg/dl - HIGH CARDIOVASCULAR RISK LDL Cholesterol Calculated 23.0 <100 mg/dl OPTIMAL 100-129 mg/dl NEAR OR ABOVE OPTIMAL 130-159 mg/dl BORDERLINE HIGH 160-189 mg/dl HIGH >190 mg/dl VERY HIGH VLDL CHOLESTEROL 37.4 Chol HDL Ratio 2.8 3.3 - 4.4 LOW RISK 4.4 - 7.1 AVERAGE RISK 7.1 - 11.0 MODERATE RISK >11.0 HIGH RISK Performing Lab: see note ML - [facility] Reason For Referral No Information Medications Medication SIG (Take, Route, Frequency, Duration) Notes Start Date End Date Status Basaglar KwikPen 100 UNIT/ML inject 16 units Subcutaneous once daily for 90 days 07/14/2024 Active Insulin Aspart 100 UNIT/ML 16 units Subcutaneous am Active Pravastatin Sodium 40 mg TAKE ONE TABLET BY MOUTH ONCE DAILY for 30 days Active Bumetanide 2 MG 2 tablets Orally BID for 30 days Active Isosorbide Dinitrate 10 MG 1 tablet Oral ly Twice a day for 30 day(s) Active Sevelamer Carbonate 800 MG Oral for 23 Days Active Fluticasone Propionate 50 MCG/ACT 1 spray in each nostril Nasally Once a day for 30 day(s) Active Aspirin 81 MG 1 tablet Orally Once a day for 30 day(s) Active One Touch Ultra Test Strips - Active Levothyroxine Sodium 100 MCG 1 tablet in the morning on an empty stomach Orally Once a day for 30 days Active Dexcom G6 Gas Or Water Meter Installer - as directed Active Liothyronine Sodium 5 MCG TAKE TWO TABLE TS BY MOUTH ONCE DAILY ON AN EMPTY STOMACH for 30 Active Carvedilol 25 MG 1 tablet with food O rally Twice a day for 30 days Active Lancets - as directed Active Omeprazole 40 mg TAKE 1 CAPSULE BY MO [facility] TWICE A DAY for 30 days Active Compression Stocking Below Knee 20-30mmHg - Active Easy Comfort Pen [place] 31G X 8 MM as directed for 30 days Acti ve Nephro-Jose 0.8 MG TAKE ONE TABLET BY M OUT ONCE DAILY Oral for 24 Days Active NIFEdipine ER Osmotic Release 30 mg TAKE ONE TABLET BY MOUTH TWICE A DAY for 30 Active Dexcom G6 Sensor - as directed Active Dexcom G6 Transmitter - as directed Active Nabumetone 500 MG 2 tablets Orally Twi ce a day for 30 07/23/2023 Active hydrALAZINE HCl 50 mg TAKE ONE TABLET BY MOUTH TWICE A DAY WITH FOOD for 30 Active Immunizations Vaccine Route Administration Date Status Comme nts SARS-COV-2 (COVID 19 Pfizer 30mcg/0.3mL), ellen sucrose Unknown 06/11/2021 Administered Social History Tobacco Use: Social History Observation Description Date Details (start date - stop date) Former Smoker 03/22/1982 - 03/22/1994 Tobacco Use/Smoking Question Answer Notes Patient is a former smoker When did you start smoking? 03/22/1982 When did you stop smoking? 03/22/1994 How long has it been since you last smoked? > 10 years Alcohol Screen (Audit-C) Question Answer Notes Did you have a drink containing alcohol in the p ast year? No Points 0 Interpretation Negative AUDIT-C (Standard) Question Answer Notes Did you have a drink containing alcohol in the p ast year? No Points 0 Interpretation Negative Problems Problem Type SNOMED Code ICD Code Onset Dates Problem Status W/U Status Risk Notes Problem Foot ulcer due to type 2 diabetes mellitus (2096908067799) Type 2 diabetes mellitus with foot ulcer (E11.621) Active confirmed Problem Acute combined systolic and diastolic heart failure (847491074277168) Acute combined systolic (congestive) and diastolic (congestive) heart failure (I50.41) Active confirmed Problem Influenza (8117166) Influenza due to unidentified influenza virus with other manifestations (J11.89) Active confirmed Problem 21244842 Pleural effusion , not elsewhere classified (J90) Active confirmed Problem 50090855 End stage renal disease (N18.6) Active confirmed Problem Palpitations (32179044) Palpitations (R00.2) Active confirmed Problem Cough (48973434) Cough (R05) Active confirmed Problem Nocturia (105903531) Nocturia (R35.1) Active confirmed Problem Anorexia (59768387) Anorexia (R63.0) Active confirmed Problem Exposure to communicable disease (484467443) Contact with and (suspected) exposure to other viral communicable diseases (Z20.828) Active confirmed Problem Fatigue (36580693) Fatigue (R53.83) Active conf irmed Problem Hyperlipidemia (57385303) Hyperlipidemia (E78.5) Active confirmed Problem Hypothyroidism (19063331) Hypothyroidism (E03.9) Active confirmed Problem Diastolic dysfunction (6576826) Diastolic dysfunction (I51.9) Active confirmed Problem Coronary artery disease (93618718) CAD (coronary artery disease) (I25.10) Active confirmed Problem Hypertension (11340653) HTN (hypertension) (I10) Active confirmed Problem Anxiety (54165661) Anxiety (F41.9) Active confi rmed Problem Edema (10977392) Edema (R60.9) Active confirmed Problem Dyspnea (995403336) Dyspnea (R06.00) Active confirmed Problem Diabetic nephropathy (439705992) Diabetic nephropathy (E11.21) Active confirmed Problem Chronic sinusitis (99401423) Chronic sinusitis (J32.9) Active confirmed Problem Well adult (007929201) Well adult (Z00.00) Active confirmed Problem Non-pressure chronic ulcer of other part of right foot limited to breakdown of skin (L97.511) Active confirmed Problem Psychosexual dysfunction associated with inhibited sexual excitement (573586574430592) ED (erectile dysfunction) of non-organic origin (F52.21) Active confirmed Problem Nausea and vomiting (17813980) Nausea & vomiting (R11.2) Active confirmed Problem Shoulder joint pain (360652365) Shoulder pain, left (M25.512) Active confirmed Problem Insulin dependent diabetes mellitus type IA (53435913) 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) Active confirmed Problem Osteomyelitis (57602667) Osteomyelitis (M86.9) Active confirmed Problem Multiple pulmonary nodules (413030453) Multiple pulmonary nodules (R91.8) Active confirmed Problem Ex-tobacco user (finding) (845509496) History of tobacco abuse (Z87.891) Active confirmed Problem Old myocardial infarction (4827324) History of IA (myocardial infarction) (I25.2) Active confirmed Problem Viral gastroenteritis (937134697) Viral gastroenteritis (A08.4) Active confirmed Problem Panic attack (611334952) Panic attack (F41.0) Active confirmed Problem Problem behavior (691688193) Behavior problem (F69) Active confirmed Problem Dependence on renal dialysis (280427660) Dialysis patient (Z99.2) Active confirmed Problem Gastro-esophageal reflux disease (892598330) Gastro-esophageal reflux disease (K21.9) Active confirmed Problem 47819787 Pure hypercholesterolem ia, unspecified (E78.00) Active confirmed Problem Chronic fatigue syndrome (12493031) CFS (chronic fatigue syndrome) (R53.82) Active confirmed Problem Type II diabetes mellitus without complication (822013574) Controlled type 2 diabetes mellitus (E11.9) Active confirmed Problem Diabetic renal disease (451779109) 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 [address] [place] [address] 07/20/2024 Gamal Cartwright Dyspnea R06.00 ; Metabolic acidosis E87.20 ; [...] disease) (ICD-10 - I25.10) Plan Of Treatment Pending Test Test Name Order Date HEMOGLOBIN A1C (GLYCO) 07/20/2024 IRON, TOTAL 07/20/2024 LIPID PANEL (CHOL/TRIG/HDL/LDL) 07/21/19 25 PSA, PROSTATE-SPECIFIC ANTIGEN 4 VITAMIN D, 25 LEVEL (TOTAL) 07/20/2024 CT Chest w/o contrast 09/28/2022 FECAL OCCULT BLOOD 04/08/2023 CBC AUTO DIFF 04/08/2023 GLYCOHEMOGLOBIN A1C 04/08/2023 LIPID PROFILE 04/08/2023 PROF 14(COMP METB) 04/08/2023 TESTOSTERONE, TOTAL 07/23/2023 TESTOSTERONE, TOTAL 07/27/2023 THYROID PROFILE WITH TSH 04/08/2023 THYROID PANEL (T4/TSH/FREE T3) 5 CMP (COMP MET STANLEY) w/eGFR CKD-EPI 2024 CBC WITH DIFF 07/20/2024 Insurance Providers Payer Name Payer Address Payer Phone Subscriber Number Group Number Insured Name Patient Relationship to Insured Coverage Start Date Coverage End Date [place] [address] [place] [address] [id number] Gopal Yates Self - patient is the insured [address] [place] [id number] Gopal Yates Self - patient is the insured Medical (General) History Medical History History ICD Code End stage renal disease N18.6 Osteomyelitis M86.9 Non-pressure chronic ulcer o f other part of right foot limited to breakdown of skin L97.511 Type 2 diabetes mellitus with foot ulcer E11.621 Insulin dependent diabetes mellitus type IA E10.9 Nausea & vomiting R11.2 Nocturia R35.1 Contact with and (suspected) exposure to other viral communicable diseases Z20.828 Cough R05 Fatigue R53.83 Chronic sinusitis J32.9 History of IA (myocardial infarction) I2 5.2 CAD (coronary artery disease) I25.10 Viral gastroenteritis A08.4 Metabolic acidosis E87.20 Diabetic nephropathy E11.21 Chronic kidney disease due to diabetes m ellitus E11.22 Acute combined systolic (con gestive) and diastolic (congestive) heart failure I50.41 Palpitations R00.2 Hypothyroidism E03.9 Influenza due to unidentified influenza virus with other manifestations J11.89 Diastolic dysfunction I51.9 Edema R60.9 Well adult Z00.00 Dyspnea R06.00 Anxiety F41.9 Gastro-esophageal reflux disease K21.9 CFS (chronic fatigue syndrome) R53.82 HTN (hypertension) I10 Hyperlipidemia E78.5 Panic attack F41.0 Behavior problem F69 Controlled type 2 diabetes mellitus E11. 9 ED (erectile dysfunction) of non-organic origin F52.21 Multiple pulmonary nodules R91.8 History of tobacco abuse Z87.891 Dependence on peritoneal dialysis Z99.2 Surgical History Surgery Date(Month/Year) right foot- 4th and 5th digit amputation peritoneal dialysis catheter Hospitalization History Reason Date(Month/Year) see above
--- OUTSIDE RECORDS SUMMARY | 2024-11-08 12:50 | XMS_ITS | Clinical Summary ---
Author Organization [facility] Address [address] [place] [address] Care Team Providers Care Digital Coordinator Name Role Phone Pierce Cartwright MD Primary Care Provider [phone] Allergies Active Allergy Reactions Criticality Noted Date [...] Type Department Care Team Description 10/09/2024 Abstract [facility] [address] [place] [address] Galo Corado DPM 10/09/2024 Telephone [facility] [address] [place] [phone] Galo Corado DPM Advice Only (Keeping DM Shoes ) 09/25/2024 1:15 PM EDT Office Visit [facility] [address] [place] [address] Galo Corado DPM 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); Peripheral vascular disease, unspecified; Status post amputation of foot, right (HCC) 09/25/2024 Bamboo flowsheet [facility] [address] [place] [address] Galo Corado DPM 09/25/2024 Travel 09/21/2024 Travel 09/20/2024 Travel 09/15/2024 Travel 09/06/2024 2:30 PM EDT Procedure Visit [facility] [address] [place] [phone] Selam Larsen DPM Status post amputation of foot, right (HCC) (Primary Dx); Type II diabetes mellitus with neurological manifestations (HCC); Onychomycosis; Corns and callosities 09/06/2024 Bamboo flowsheet [facility] [address] [place] [phone] Selam Larsen DPM 09/06/2024 Travel from Last 3 Months Family History [...] Procedure Visit [facility] [address] [place] [phone] Selam Larsen DPM [address] [place] [address] Health Maintenance Due Date Last Done Comments CT Colonography 1964 Colonoscopy 1964 Colorectal Cancer Screening 1964 FIT-DNA 1964 FIT 1964 FOBT 1964 Sigmoidoscopy 1964 Influenza Vaccine (#1) 2024 Insurance MEDICARE MEDICAID [place] Care Teams Digital Coordinator Relationship Specialty Start Date End Date Pierce Cartwright MD [address] [place] [address] PCP - General Family Medicine 08/12/22
--- OUTSIDE RECORDS SUMMARY | 2024-11-08 12:50 | XMS_ITS | Encounter Summary ---
Author Organization [facility] Address [address] [place] [address] Care Team Providers Care Psychiatric Security Nurse Name Role Phone Pierce Cartwright MD Primary Care Provider [phone] Franklin Stevens MD Unavailable Reason for Visit * Reason Onset Date Comments Other 11/03/2024 Encounter Details Date Type Department Care Team (Late st Contact Info) Description 11/03/2024 Telephone [facility] [address] [place] [address] Dakota Tanner MA Other Social History Tobacco Use Types Packs/Day Years Used Date Smoking Tobacco: Former Cigarettes 1 02 19 983 - 1994 Smokeless Tobacco: Never Alcohol Use Standard Drinks/Week Comments Not Currently 0 (1 standard drink = 0.6 oz pur e alcohol) PHQ-2 Answer Date Recorded Patient Health Questionnaire-2 Score 0 10/31/2024 [place] Safety & Environment Answer Date Rec [...] encounter Miscellaneous Notes * Telephone Encounter - Dakota Tanner MA - 11/03/2024 10:13 AM EDT Patient wanted orders (labs,US,PFT) sent to [facility] these were faxed over to [phone]. documented in this encounter Plan of Treatment Upcoming Encounters Date Type Department Care Team (Late st Contact Info) Description 11/16/2024 10:30 AM EDT Appointment [facility] Pulmonary Function Testing [address] [place] [address] 3rd [place] [address] 11/30/2024 3:00 PM EDT Follow-Up [facility] [address] [place] [address] Jerome Pena, PYROMETER OPERATOR [address] [place] [address] documented as of this encounter Visit Diagnoses Not on filedocumented in this encounter Care Teams Psychiatric Security Nurse Relationship Specialty Start Date End Date Pierce Cartwright MD [address] [facility] [address] [address] PCP - General 12/11/21 Franklin Stevens MD [address] [place] [address] Consulting Physician Urology 08/30/24 Nephrology Consulting Physician Nephrology 01/12/22 documented as of this encounter
--- OUTSIDE RECORDS SUMMARY | 2024-11-08 12:50 | XMS_ITS | Encounter Summary ---
Author Organization [facility] Address [address] [place] [address] Care Team Providers Care Ultrasound Applications Specialist Name Role Phone Pierce Cartwright MD Primary Care Provider [phone] Encounter Details Date Type Department Care Team (Late st Contact Info) Description 10/09/2024 Abstract [facility] [address] [place] [phone] Galo Corado DPM [address] [place], [place] [phone] Social History Tobacco Use Types Packs/Day Years [...] [address] [place] [address] Selam Larsen DPM [address] [place] [address] documented as of this encounter Visit Diagnoses Not on filedocumented in this encounter Care Teams Ultrasound Applications Specialist Relationship Specialty Start Date End Date Pierce Cartwright MD [address] [place] [address] PCP - General Family Medicine 08/12/22 documented as of this encounter
--- OUTSIDE RECORDS SUMMARY | 2024-11-08 12:50 | XMS_ITS | Encounter Summary ---
Author Organization [facility] Address [address] [place] [address] Care Team Providers Care Success Coach Name Role Phone Pierce Cartwright MD Primary Care Provider [phone] Franklin tSevens MD Unavailable Encounter Details Date Type Department Care Team (Late Contact Info) Description 11/01/2024 Orders Only [facility] [address] [place] [phone] Dakota Tanner MA Social History Tobacco Use Types Packs/Day Years Used Date Smoking Tobacco: Former Cigarettes 1 02 19 983 - 1994 Smokeless Tobacco: Never Alcohol Use Standard Drinks/Week Comments Not Currently 0 (1 standard drink = 0.6 oz pur e alcohol) PHQ-2 Answer Date Recorded Patient Health Questionnaire-2 Score 0 10/31/2024 [place] Safety & Environment Answer Date Rec orded [...] Info) Description 11/16/2024 10:30 AM EDT Appointment [facility] Pulmonary Function Testing [address] [place] [address] [address]rd [place] [phone] 11/30/2024 3:00 PM EDT Follow-Up [facility] [address] [place] [address] Neel Penaa, TEACHER DRAMATICS [address] [place] [address] documented as of this encounter Visit Diagnoses Not on filedocumented in this encounter Care Teams Success Coach Relationship Specialty Start Date End Date Pierce Cartwright MD [address] [facility] [place] [address] PCP - General 12/11/21 Franklin Stevens MD [address] [place] [address] Consulting Physician Urology 08/30/24 Nephrology Consulting Physician Nephrology 01/12/22 documented as of this encounter
--- OUTSIDE RECORDS SUMMARY | 2024-11-08 12:57 | XMS_ITS | CCD ---
Author Organization [facility] Team Providers Care Shoveler Name Role Phone Cristobal Butts Unavailable Douglas Juárez MD Primary Care Provider Douglas Juárez MD Primary Care Provider MD Douglas Juárez Primary Care Provider MD Cristobal Butts Attending Provider Douglas Juárez MD Primary Care Provider Ford Sam Unavailable Douglas Juárez MD Primary Care Provider [phone] MD Douglas Juárez Primary Care Provider DO Lambert Blanc Emergency Provider [phone] MD Cornelio Simon Admit Provider MD Cornelio Simon Attending Provider [phone] MD Ashutosh Thomas Other Provider MD Yvonne Barboza Other Provider HARRY Griggs Other Provider MD Sohan Kellogg Other Provider HARRY Griggs Attending Provider MD Gopal Larsen Emergency Provider MD Salvador Alonso Admit Provider MD Salvador Alonso Attending Provider MD Cristobal Butts Other Provider HARRY Luis Provider DO Scotty Kahn Attending Provider MD [...] CONRAD Referring Unavailable KARAMLOU, JOSH Referring Unavailable DOUGLAS JUÁREZ Primary Care Unavailable ABHYANKAR, CONRAD Referring Unavailable DOUGLAS JUÁREZ Primary Care Unavailable ABHYANKAR, CONRAD Referring Unavailable ABHYANKAR, CONRAD Attending Unavailable DOUGLAS JUÁREZ Primary Care Unavailable Ashutosh Thomas Unavailable Douglas Juárez MD Primary Care Provider [phone] MD Douglas Juárez Primary Care Provider DO Lambert Blanc Emergency Provider MD Cornelio Simon Admit Provider MD Cornelio Simon Attending Provider [phone] MD Ashutosh Thomas Other Provider MD Yvonne Barboza Other Provider HARRY Griggs Other Provider MD Sohan Kellogg Other Provider HARRY Griggs Attending Provider [phone] MD Gopal Larsen Emergency Provider MD Salvador Alonso Admit Provider MD Cristobal Butts Other Provider HARRY Luis Other Provider DO Scotty Kahn Attending Provider MD Sohan Kellogg Attending Provider MD Caleb Farrar Admit Provider [phone] MD Caleb Farrar Attending Provider CRISTOBAL BUTTS Admitting Unavailable CRISTOBAL BUTTS Attending Unavailable DR DOUGLAS OBRIEN Primary Care Unavailable CRISTOBAL BUTTS Consulting Unavailable ALEN CEDILLO Admitting Unavailable ALEN CEDILLO Attending Unavailable DR DOUGLAS OBRIEN Primary Care Unavailable ALEN CEDILLO Consulting Unavailable PAOLA ZHANG Admitting Unavailable PAOLA ZHANG Attending Unavailable MARQUITA ., DR PELAYO Primary Care Unavailable PAOLA ZHANG Consulting Unavailable KISHOR, BROCK Vizcarra Admitting Unavailable HIGHLJAYLAN, BROCK Vizcarra Attending Unavailable HOShannon ., DR PELAYO Primary Care Unavailable Fidel Gongora Consulting Unavailable HIGHLANDER, BROCK Vizcarra Consulting Unavailable HIGHLANDER, BROCK D Admitting Unavailable KISHOR, BROCK Vizcarra Attending Unavailable MARQUITA ., DR PELAYO Primary Care Unavailable MISC, DR GARCÍA Admitting Unavailable MISC, DR GARCÍA Attending Unavailable HOY ., DR PELAYO Referring Unavailable HOY ., DR PELAYO Primary Care Unavailable MISC, DR GARCÍA Consulting Unavailable HOY ., DR PELAYO Admitting Unavailable HOY ., DR PELAYO Attending Unavailable HOY ., DR PELAYO Referring Unavailable HOY ., DR PELAYO Primary Care Unavailable HOY ., DR PELAYO Consulting Unavailable MISC, DR GARCÍA Admitting Unavailable MISC, DR GARCÍA Attending Unavailable HOY ., DR PELAYO Primary Care Unavailable MISC, DR GARCÍA Consulting Unavailable BAKHOUS, AZIZ Admitting Unavailable BAKHELENSCECILIOIZ Attending Unavailable MARQUITA ., DR PELAYO Primary Care Unavailable BAKHOUS, AZIZ Consulting Unavailable DO Vikash Pope Attending Provider Eddy Larsen Admitting Unavailable Hoy, M Primary Care Unavailable Eddy Larsen Attending Unavailable Chava, Eddy Admitting Unavailable Hoy, M Primary Care Unavailable Eddy Larsen Attending Unavailable Hoy, M Primary Care Unavailable Eddy Larsen Admitting Unavailable Eddy Larsen Attending Unavailable Sohan Kellogg Admitting Unavailable Sohan Kellogg Attending Unavailable Hoy, M Primary Care Unavailable Scotty Kahn Attending Unavailsusie Alonso, Salvador Admitting Unavailable Ashutosh Thomas Consulting Unavailable Hoy, M Primary Care Unavailable Bakhous, Aziz Consulting Unavailable Primo Luis Consulting Unavailable Caleb Farrar Admitting Unavailable Vikash Pope Attending Unavailable Ashutosh Thomas Consulting Unavailable Hoy, M Primary Care Unavailable Bakhous, Aziz Consulting Unavailable Eddy Larsen Consulting Unavailable Hoy, M Primary Care Unavailable Eddy Larsen Admitting Unavailable Eddy Larsen Attending Unavailable Hoy, M Primary Care Unavailable Tamra, Yvonne Admitting Unavailable Tamra, Yvonne Attending Unavailable Douglas Juárez Primary Care Physician Ashutosh BULL Attending Unavailable Douglas Juárez Referring Unavailable Douglas Juárez MD Primary Care Provider [phone] Douglas Juárez MD Primary Care Provider EDDY LARSEN Attending Unavailable KYLIE, LEANN Isaacs Attending Unavailable EDDY LARSEN Referring Unavailable EDDY LARSEN Attending Unavailable KYLIE, LEANN Isaacs Attending Unavailable EDDY LARSEN Attending Unavailable KYLIE, LEANN Isaacs Attending Unavailable EDDY LARSEN Attending Unavailable JANELLE LOGAN Attending Unavailable CASIMIRO SOSA Admitting Unavailable MOUKANATHANIEL, CASIMIRO Attending Unavailable MULUGETA KAPADIA Referring Unavailable GOPAL GUADALUPE Attending Unavailable AKRAWI, JORDENR Referring Unavailable AKRAWI, LUCINDA Referring Unavailable AKRATRENT, LUCINDA Referring Unavailable MOUKACASIMIRO ARMSTRONG Referring Unavailable MOCASIMIRO REYES Attending Unavailable MOUKANATHANIEL, CASIMIRO Attending Unavailable MOUKANATHANIEL, CASIMIRO Referring Unavailable Allergies Allergy Classification Reported Allergen(s) Allergy Type Date of Onset Reaction(s) Facility (4 sources) sulfaSALAzine Drug Allergy Unknown [facility] Other (20 sources) Sulfonamides (Antibiotic); Translations: [SULFA (SULFONAMIDE ANTIBIOTICS)] Propensity to adverse reactions to drug 07-23-[address] [facility] (1 source) Sulfonamide Drug allergy Unknown [facility] Other (1 source) Sulfonamides (Antibiotic) Drug allergy (disorder) [facility] (1 source) Sulfonamides (Antibiotic) Drug allergy (disorder) 06-12-19 23 [facility] Repository (2 sources) Sulfonamides (Antibiotic); Translations: [sulfa drugs] Propensity to adverse reactions to drug Patient reported problems (finding) [facility] [place] Medications Current Medications Medication Drug Class(es) Dates Sig (Normalized) Sig (Original) aspirin 81 mg delayed release oral tablet (20 sources) Platelet Aggregation Inhibitor, Nonsteroidal Anti-inflammatory Drug Start: 05-05-2022 take 1 tablet by mouth once daily Aspirin 81 mg tablet,delayed release (DR/EC) Active 81 MG PO Daily May 05, 2022 1:00am take 1 tablet by mouth once cody y Aspirin 81 81 MG 1 tablet Orally Once a day Active aspirin 81 mg ca p Take by mouth. 0 Active Comment on above: Take by mouth. carvedilol 25 mg oral tablet (20 sources) alpha-Adrenergic Luis, beta-Adrenergic Luis Start: 05-05-2022 take 1 tablet by mouth twice daily carvedilol 25 mg Tab 25 mg = 1 tab(s), Oral, BID, Refills(s) 0 Start Date: 09/09/23 Status: Ordered Start: 05-05-2022 take 37.5 mg by mout h twice daily Carvedilol Active 37.5 MG PO Twice daily May 05, 2022 1:00am take 1 tablet by rocio th in the morning carvedilol (Coreg) 3.125 MG tablet Take 3.125 mg by mouth in the morning and 3.125 mg in the evening. Take with meals. Active Comment on above: Take 25 mg by mouth twice daily with meals. /2 tabstwice daily cholecalciferol 0.05 mg oral capsule (11 sources) Vitamin D Start: take 1 capsule by mouth once daily Cholecalciferol (Vitamin D3) (Vitamin D3) 50 mcg (2,000 unit) capsule Active 50 MCG PO Daily May 05, 2022 1:00am donepezil (1 source) Aricept Active fluticasone propionate 0.05 mg/actuat metered dose nasal spray (1 source) Corticosteroid Start: 024 Flonase 0.05 mg/inh [place] 1 spray(s), Nasal, Daily, Refill(s) 0 Start Date: 09/09/23 Status: Ordered hydrALAZINE hydrochloride 50 mg oral tablet (20 sources) Arteriolar Vasodilator Start: 023 take 1 tablet by mouth three times daily Hydralazine 50 mg tablet Active 50 MG PO Three times daily May 05, 2022 1:00am Comment on above: Take 50 mg by mouth three times daily. Insulin Aspart U-100 100 unit/mL (3 mL) insulin pen (1 source) Start: 023 Insulin Aspart U-100 100 unit/mL (3 mL) insulin pen Active 0 .ROUTE .COMPLEX May 05, 2022 1:00am 140-200 give 8 units >200 give 12 units insulin aspart, human (20 sources) Insulin Analog Start: 023 Insulin Aspart U-100 Active 0 .ROUTE .COMPLEX [...] ml insulin glargine 100 unt/ml pen injector (20 sources) Insulin Analog Start: 09-09-2023 Lantus Solosta r Pen 100 units/mL subcutaneous solution 16 unit(s), SubCutaneous, Daily, Refills(s) 0 Start Date: 09/09/23 Status: Ordered Lantus SoloStar 100 UNIT/ML pen INJECT 16 UNITS SUBCUTANEOUSLY DAILY Active Insulin Glargine (Lantus U-100 Insulin) 100 unit/mL solution (11 sources) Start: 05-05-2022 inject 16 [IU] by [...] Active take 10 mL intravenously every w tyonek Venofer 20 MG/ML 200 mg or 10 ml Intravenous weekly for 35 days Active isosorbide mononitrate 10 mg oral tablet (10 sources) Nitrate Vasodilator take 1 tablet by mouth every eight hours Isosorbide Mononitrate 10 MG 1 tablet Orally THREE TIMES A DAY Active isosorbide dinitrate 10 mg oral tablet (12 sources) Nitrate Vasodilator Start: 4 take 1 tablet by mouth twice daily isosorbide dinitrate 10 mg Tab 10 mg = 1 tab(s), Oral, BID, Refills(s) 0 Start Date: 09/09/23 Status: Ordered Start: 05-05-2022 take 1 tablet by rocio th three times daily Isosorbide Dinitrate 10 mg tablet Active 10 MG PO Three times daily May 05, 2022 1:00am levothyroxine sodium 0.1 mg oral tablet (20 sources) l-Thyroxine Start: 09-09-2023 take 1 tablet by mouth once daily levothyroxine 100 mcg (0.1 mg) Tab 100 mcg = 1 tab(s), Oral, Daily, Refills(s) 0 Start Date: 09/09/23 Status: Ordered Start: 05-05-2022 take 1 tablet by rocio th once daily Levothyroxine 100 mcg tablet Active 100 MCG PO Daily May 05, 2022 1:00am take 1 tablet by rocio th once daily in the morning Levothyroxine Sodium 100 MCG 1 tablet in the morning on an empty stomach Orally Once a day Active take 1 capsule by mo [facility] once daily before breakfast levothyroxine 100 mcg cap Take 100 mcg by mouth daily before breakfast. 0 Active Comment on above: Take 100 mcg by mout h daily before breakfast. liothyronine sodium 0.005 mg oral tablet (19 sources) l-Triiodothyronine Start: 4 take 2 tablets by mouth once daily liothyronine 5 mcg Tab 10 mcg = 2 tab(s), Oral, Daily, Refills(s) 0 Start Date: 09/09/23 Status: Ordered Start: 05-20-2022 take 1 tablet by rocio th once daily Liothyronine 5 mcg tablet Active 10 MCG PO Daily May 20, 2022 1:00am Start: 05-20-2022 take 10 ug by mouth once daily Liothyronine Active 10 MCG PO Daily May 20, 2022 1:00am take 2 tablets by mo ksh once daily Liothyronine Sodium 5 MCG TAKE TWO TABLETS BY MOUTH ONCE DAILY Oral for 30 Active magnesium gluconate 550 mg oral tablet (11 sources) take 1 tablet by mouth in the morning magnesium 30 MG tablet Take 30 mg by mouth in the morning and 30 mg before bedtime. Active magnesium oxide 400 mg oral tablet (2 sources) Start: 12-07-2023 take 1 tablet by mouth once daily Magnesium Oxide 400 mg (241.3 mg magnesium) tablet Active 0 .ROUTE .COMPLEX December 07, 2023 7:45am TAKE ONE TABLET BY MOUTH ONCE DAILY Start: 12-07-2023 End: 12-07-2023 take 1 tablet by mouth once daily Magnesium Oxide 400 mg magnesium tablet Discontinued 400 MG PO Daily December 07, 2023 12:00am December 07, 2023 7:45am Multivitamin (Multi-Vitamin) Tablet (1 source) Start: 05-05-2022 take 1 tablet by mouth once daily Multivitamin (Multi-Vitamin) Tablet Active 1 TAB PO Daily May 05, 2022 12:00am Multivitamin preparation (14 sources) Start: 05-05-2022 take 1 tablet by mouth once daily Multivitamin Active 1 TAB PO Daily May 05, 2022 1:00am Start: 05-05-2022 take 1 tablet by rocio once daily Multivitamin Active 1 TAB PO Daily May 05, 2022 12:00am take 1 tablet by rocio once daily Multi Vitamin - 1 tablet Orally Once a day Active Nephro-Jose (1 source) Start: 09-09-2023 take 1 tablet by mouth once daily Nephro-Jose 1 tab(s), Oral, Daily, Refill(s) 0 Start Date: 09/09/23 Status: Ordered NIFEdipine 30 mg oral tablet (20 sources) Dihydropyridine Calcium Channel Luis Start: 09-09-2023 take 1 tablet by mouth once daily NIFEdipine 30 mg ER Tab 30 mg = 1 tab(s), Oral, Daily, Refills(s) 0 Start Date: 09/09/23 Status: Ordered Start: 05-05-2022 take 1 tablet by rocio th twice daily Nifedipine 30 mg tablet extended release 24hr Active 30 MG PO Twice daily May 05, 2022 1:00am take 1 tablet by rocio th every twelve hours NIFEdipine ER 30 MG 1 tablet on an empty stomach Orally TWICE A DAY Active take 1 tablet by rocio th once daily NIFEdipine XL (ADALAT CC) 30 mg 24 hr tablet Take 30 mg by mouth once daily. 0 Active Comment on above: Take 30 mg by mouth once daily. omeprazole 40 mg delayed release oral capsule (20 sources) Proton Pump Inhibitor Start: 05-05-2022 take 1 capsule by mouth twice daily omeprazole 40 mg Cap-DR 40 mg = 1 cap(s), Oral, BID, Refills(s) 0 Start Date: 09/09/23 Status: Ordered Start: 05-05-2022 take 40 mg by mouth once daily Omeprazole Active 40 MG PO Daily May 05, 2022 12:00am take 1 tablet by rocio th before mealtime omeprazole OTC (PriLOSEC OTC) 20 MG EC tablet Take 20 mg by mouth in the morning. Take before meals. Do not crush, chew, or split. Active take 1 tablet by mouth once cody y PriLOSEC OTC 20 MG 1 tablet 30 minutes before morning meal Orally Once a day Active Comment on above: Take 20 mg by mouth once daily. microencapsulated potassium chloride 20 meq extended release oral tablet (20 sources) Start: End: take 1 tablet by mouth once daily Potassium Chloride 20 mEq tablet,ER particles/crystals Active 0 .ROUTE .COMPLEX June 01, 2024 3:08pm TAKE ONE TABLET BY MOUTH ONCE DAILY Start: 12-08-2023 End: 12-08-2023 take 1 tablet by mouth once daily Potassium Chloride 20 mEq tablet extended release Discontinued 20 MEQ PO Daily December 08, 2023 12:00am December 08, 2023 3:22pm Start: 05-05-2022 End: 05-20-2022 take 1 tablet by mouth once daily Potassium Chloride 10 mEq tablet extended release Discontinued 10 MEQ PO Daily May 05, 2022 1:00am May 20, 2022 2:00pm potassium chlori de CR (Klor-Con M10) 10 MEQ ER tablet Take 10 mEq by mouth Daily Do not crush or chew. Active take 1 tablet by rocio th twice daily potassium chloride (K-TAB) 10 mEq tablet Take 10 mEq by mouth twice daily. 0 Active Comment on above: Take 10 mEq by mouth twice daily. pravastatin sodium 40 mg oral tablet (16 sources) HMG-CoA Reductase Inhibitor Start: 06-11-2022 take 1 tablet by mouth once daily pravastatin 40 mg Tab 40 mg = 1 tab(s), Oral, Daily, Refills(s) 0 Start Date: 09/09/23 Status: Ordered pravastatin (Pra vachol) 20 MG tablet Take 20 mg by mouth Active sevelamer carbonate 800 mg oral tablet (16 sources) Phosphate Binder Start: 03-01-2024 sevelamer car bonate (Renvela) 800 MG tablet TAKE TWO TABLETS BY MOUTH THREE TIMES A DAY (WITH MEALS) AND TAKE ONE TABLET WITH SNACKS (7 TABLETS DAILY) 03/01/2024 Active Start: 09-09-2023 take 1 tablet by rocio th once daily sevelamer 800 mg oral tablet 800 mg = 1 tab(s), Oral, Daily, Refills(s) 0 Start Date: 09/09/23 Status: Ordered Start: 06-10-2023 End: 02-06-2024 Sevelamer Carbonate 800 mg t ablet Active 0 .ROUTE .COMPLEX February 06, 2024 1:17pm TAKE TWO TABLETS BY MOUTH THREE TIMES A DAY (WITH MEALS) AND TAKE ONE TABLET WITH SNACKS (7 TABLETS DAILY) Start: 06-10-2023 End: 06-10-2023 take 2 tablets by mouth three times daily at mealtime Sevelamer Carbonate 800 mg tablet Discontinued 1600 MG PO Three times daily 540 90 June 10, 2023 12:00am June 10, 2023 2:10pm must administer with a meal/food sodium bicarbonate 650 mg oral tablet (20 sources) Start: 05-08-2022 take 2 tablets by mouth twice daily Sodium Bicarbonate 650 mg Tablet Active 1300 MG PO Twice daily 120 May 08, 2022 1:00am Start: 05-08-2022 take 1300 mg by mout h twice daily Sodium Bicarbonate Active 1300 MG PO Twice daily 120 May 08, 2022 1:00am take 1 tablet by rocio th every twelve hours Sodium Bicarbonate 650 MG 1 tab(s) Orally bid for 90 day(s) Active Comment on above: Take 650 mg by mouth twice daily. Completed/Discontinued Medications Medication Drug Class(es) Dates Sig (Normalized) Sig (Original) acetaminophen 325 mg / HYDROcodone bitartrate 5 mg oral tablet (6 sources) Opioid Agonist Start: 05-28-2022 End: 06-11-2022 take 1 tablet by mouth every six hours as needed for pain Hydrocodone-Acetam inophen 5-325 mg tablet Discontinued 1 TAB PO Q6H as needed for pain 16 10May 28, 2022 June 11, 2022 4:14pm amoxicillin 500 mg / clavulanate 125 mg oral tablet (10 sources) Penicillin-class Antibacterial Start: 05-08-2022 End: 05-25-2022 take 1 tablet by mouth twice daily Amoxicillin-Pot Clavulanate (Augmentin) 500-125 mg tablet Discontinued 1 TAB PO Twice daily May 08, 2022 1:00am May 25, 2022 3:13pm B Complex-Vitamin C-Folic Acid (Nephro-Jose) 0.8 mg tablet (2 sources) Start: 12-08-2023 End: 08-10-2024 take 1 tablet by mouth once daily B Complex-Vitamin C-Folic Acid (Nephro-Jose) 0.8 mg tablet Discontinued 0 .ROUTE .COMPLEX December 08, 2023 3:21pm August 10, 2024 1:33pm TAKE ONE TABLET BY MOUTH ONCE DAILY Start: 12-08-2023 End: 12-08-2023 take 1 tablet by mouth once daily B Complex-Vitamin C-Folic Acid (Nephro-Jose) 0.8 mg tablet Discontinued 1 TAB PO Daily December 08, 2023 12:00am December 08, 2023 3:21pm bumetanide 2 mg oral tablet (20 sources) Loop Diuretic Start: 06-15-2022 End: 08-10-2024 take 1 tablet by mouth twice daily Bumetanide 2 mg Tablet Discontinued 2 MG PO BID@0800,1600 60 June 15, 2022 12:00am August 10, 2024 1:33pm Start: 05-05-2022 End: 06-15-2022 take 1 tablet by mouth once daily Bumetanide 2 mg tablet Discontinued 2 MG PO Daily May 05, 2022 1:00am June 15, 2022 2:21pm take 2 mg by mouth e very twenty-four hours Bumetanide 2 MG as directed Orally every 24 hrs Active Comment on above: Take 2 mg by mouth o nce daily. clopidogrel 75 mg oral tablet (15 sources) [id number] Platelet Inhibitor Start: End: take 1 tablet by mouth once daily Clopidogrel 75 mg tablet Discontinued 75 MG PO Daily May 05, 2022 1:00am May 20, 2022 1:55pm take 1 tablet by rocio th every twenty-four hours Plavix 75 MG 1 tablet Orally Once a day Active cyproheptadine hydrochloride 4 mg oral tablet (8 sources) Start: 05-20-2022 End: 08-10-2024 take 1 tablet by mouth twice daily Cyproheptadine 4 mg tablet Discontinued 4 MG PO Twice daily May 20, 2022 1:00am August 10, 2024 1:34pm Start: 05-20-2022 take 4 mg by mouth once daily Cyproheptadine Active 4 MG PO Daily May 20, 2022 12:00am ertapenem 1000 mg injection (7 sources) Penem Antibacterial Start: 05-22-2022 End: 06-15-2022 take 1 g intravenously once daily Ertapenem (Invanz) 1 gram recon soln Discontinued 0.5 GM IV Daily 40 40 May 22, 2022 1:00am June 15, 2022 3:19pm at home ezetimibe 10 mg oral tablet (20 sources) Dietary Cholesterol Absorption Inhibitor Start: 05-05-2022 End: 08-10-2024 take 1 tablet by mouth once daily Ezetimibe 10 mg tablet Discontinued 10 MG PO Daily May 05, 2022 1:00am August 10, 2024 1:34pm Comment on above: Take 10 mg by mouth once daily. ferrous sulfate 325 mg oral tablet (20 sources) Start: 05-05-2022 End: 05-20-2022 take 1 tablet by mouth once daily Ferrous Sulfate 325 mg (65 mg iron) tablet Discontinued 325 MG PO Daily May 05, [...] on above: Take 1 capsule by mo uth once daily. Multivitamin Tablet (1 source) Start: 3 End: 5 take 1 tablet by mouth once daily Multivitamin Tablet Discontinued 1 TAB PO Daily May 05, 2022 1:00am August 10, 2024 1:32pm Problems Active Problems Problem Classification Problem Date Documented Da te Episodic/Chronic Acute and unspecified renal failure (8 sources) Injury of kidney; Translations: [Acute kidney failure, unspecified] Onset: 3 06-11-2022 Episodic Comment on above: Problem List clean-u p per request of Phys. EHR Cmte Anxiety disorders (1 source) Anxiety 09-09-2023 Chronic Cardiac dysrhythmias (1 source) Palpitations; Translations: [PALPITATIONS] Onset: 3 Episodic Chronic kidney disease (20 sources) Chronic kidney disease stage 4; Translations: [Chronic kidney disease, stage 4 (severe)] Onset: 2 Resolved: 2 Chronic Comment on above: Problem List clean-u p per request of Phys. EHR Cmte Chronic kidney disease (1 source) Chronic kidney disease; Translations: [Stage 3b chronic kidney disease (HCC)] Onset: 2 Chronic ulcer of skin (20 sources) Non-pressure chronic ulcer of other part of right foot with necrosis of bone; Translations: [Ulcer of right foot with necrosis of bone] Onset: 3 Resolved: 3 05-06-2022 Chronic Comment on above: Problem List clean-u p per request of Phys. EHR Cmte Congestive heart failure; nonhypertensive (8 sources) Heart failure, unspecified; Translations: [Acute combined systolic and diastolic heart failure] Onset: 0 09-09-2023 Chronic Coronary atherosclerosis and other heart disease (20 sources) Coronary arteriosclerosis; Translations: [Atherosclerotic heart disease of [place] coronary artery without angina pectoris] Onset: 2 Resolved: 4 Chronic Deficiency and other anemia (20 sources) Anemia of renal disease; Translations: [Anemia in chronic kidney disease] 05-06-2022 Chronic Comment on above: Problem List clean-u p per request of Phys. EHR Cmte Deficiency and other anemia (8 sources) Anemia in chronic kidney disease; Translations: [Anemia due to stage 3b chronic kidney disease (HCC)] Onset: 2 Resolved: 2 Chronic Deficiency and other anemia (8 sources) Anemia in chronic kidney disease; Translations: [Anemia in chronic kidney disease] Chronic Deficiency and other anemia (20 sources) Anemia co-occurrent and due to chronic kidney disease stage 3; Translations: [Anemia due to stage 3b chronic kidney disease (HCC)] Onset: 2 Chronic Deficiency and other anemia (10 sources) Iron deficiency anemia; Translations: [Iron deficiency anemia, unspecified] Onset: 4 Episodic Deficiency and other anemia (1 source) Iron deficiency anemia, unspecified Episodic Deficiency and other anemia (6 sources) Anemia; Translations: [Anemia, unspecified] Onset: 3 06-11-2022 Episodic Comment on above: Problem List clean-u p per request of Phys. EHR Cmte Deficiency and other anemia (1 source) Deficiency and other anemia; Translations: [Anemia due to stage 3b chronic kidney disease (HCC)] Onset: 2 Diabetes mellitus with complications (20 sources) Disorder of kidney due to diabetes mellitus; Translations: [Type 2 diabetes mellitus with diabetic nephropathy] Onset: 2 Resolved: 2 Chronic Comment on above: Problem List clean-u p per request of Phys. EHR Cmte Diabetes mellitus without complication (1 source) Diabetes mellitus 09-09-2023 Chronic Diabetes mellitus without complication (1 source) Diabetes mellitus without complication; Translations: [Type 2 diabetes mellitus with foot ulcer] Onset: 3 Disorders of lipid metabolism (3 sources) Hyperlipidemia, unspecified; Translations: [Hypercholesterolemia] Onset: 3 09-09-2023 Chronic Esophageal disorders (3 sources) Gastroesophageal reflux disease without esophagitis; Translations: [Gastro-esophageal reflux disease without esophagitis] Onset: 4 Chronic Essential hypertension (4 sources) Essential (primary) hypertension; Translations: [Essential hypertension] Onset: 2 09-09-2023 Chronic Fever of unknown origin (13 sources) Fever; Translations: [Fever, unspecified] Onset: 3 06-11-2022 Episodic Comment on above: Problem List clean-u p per request of Phys. EHR Cmte Fluid and electrolyte disorders (20 sources) Acidosis; Translations: [Metabolic acidosis] Onset: 2 Resolved: 2 Episodic Comment on above: Problem List clean-u p per request of Phys. EHR Cmte Heart valve disorders (1 source) Mitral valve regurgitation Onset: 0 09-09-2023 Chronic Hypertension with complications and secondary hypertension (20 sources) Malignant hypertensive chronic kidney disease; Translations: [Hypertensive chronic kidney disease with stage 1 through stage 4 chronic kidney disease, or unspecified chronic kidney disease] Onset: 2 Resolved: 2 Chronic Comment on above: Problem List clean-u p per request of Phys. EHR Cmte Infective arthritis and osteomyelitis (except that caused by tuberculosis or sexually transmitted disease) (20 sources) Osteomyelitis; Translations: [Osteomyelitis, unspecified] Onset: 3 05-05-2022 Chronic Comment on above: Problem List clean-u p per request of Phys. EHR Cmte Malaise and fatigue (1 source) Chronic fatigue syndrome 09-09-2023 Chronic Mycoses (3 sources) Onychomycosis; Translations: [Tinea unguium] 12-15-2023 Episodic Nausea and vomiting (2 sources) Nausea and vomiting; Translations: [Nausea with vomiting, unspecified] 08-10-2024 Episodic Nutritional deficiencies (8 sources) Vitamin D deficiency; Translations: [Vitamin D deficiency, unspecified] Onset: 3 Chronic Other aftercare (3 sources) Antibiotic therapy indicated; Translations: [half-way (current) use of antibiotics] 06-12-2022 Episodic Comment on above: Problem List clean-u p per request of Phys. 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; Translations: [half-way (current) use of insulin] Onset: 5 Episodic Other and ill-defined heart disease (4 sources) Heart disease, unspecified; Translations: [HEART DISEASE UNSPECIFIED] Onset: 3 Chronic Other bone disease and musculoskeletal deformities (8 sources) History of amputation of right foot; Translations: [Acquired absence of right foot] 03-28-2024 Chronic Other circulatory disease (1 source) Other specified symptoms and signs involving the circulatory and respiratory systems Episodic Other connective tissue disease (1 source) History of osteomyelitis 09-09-2023 Episodic Other endocrine disorders (6 sources) Hyperparathyroidism; Translations: [Hyperparathyroidism, unspecified] 09-09-2023 Chronic Other endocrine disorders (2 sources) Hyperparathyroidism, unspecified; Translations: [HYPERPARATHYROIDISM UNSPECIFIED] Onset: 3 Chronic Other gastrointestinal disorders (1 source) Abnormal feces; Translations: [Other fecal abnormalities] Onset: 4 Episodic Other gastrointestinal disorders (2 sources) Occult blood in stools 09-09-2023 Episodic Other injuries and conditions due to external causes (7 sources) Surgical wound finding; Translations: [Other injury of unspecified body region, initial encounter] 05-21-2022 Episodic Comment on above: Problem List clean-u p per request of Phys. EHR Cmte Other lower respiratory disease (1 source) Multiple nodules of lung 09-09-2023 Episodic Other lower respiratory disease (2 sources) Other nonspecific abnormal finding of lung field; Translations: [Other nonspecific abnormal finding of lung field] Onset: 4 Episodic Other lower respiratory disease (2 sources) Shortness of breath; Translations: [Shortness of breath] Onset: 5 Episodic Other male genital disorders (1 source) Impotence 09-09-2023 Chronic Other nervous system disorders (6 sources) Acute postoperative pain; Translations: [Other acute postprocedural pain] 05-28-2022 Episodic Comment on above: Problem List clean-u p per request of Phys. EHR Cmte Other nutritional; endocrine; and metabolic disorders (1 source) Loss of appetite; Translations: [Anorexia] 08-10-2024 Episodic Other nutritional; endocrine; and metabolic disorders (1 source) Anorexia; Translations: [Anorexia] 08-10-2024 Episodic Other screening for suspected conditions (not mental disorders or infectious disease) (6 sources) Other specified abnormal findings of blood chemistry; Translations: [Abnormal result of other cardiovascular function study] Onset: 2 Episodic Other skin disorders (5 sources) Callosity; Translations: [Corns and callosities] 12-15-2023 Episodic Peripheral and visceral atherosclerosis (20 sources) Peripheral vascular disease; Translations: [Peripheral vascular disease, unspecified] Onset: 3 12-15-2023 Chronic Residual codes; unclassified (4 sources) History of clinical finding in subject; Translations: [Personal history of other specified conditions] 06-11-2022 Episodic Comment on above: Problem List clean-u p per request of Phys. EHR Cmte Residual codes; unclassified (1 source) Edema, unspecified; Translations: [EDEMA UNSPECIFIED] Onset: 3 Episodic Respiratory failure; insufficiency; arrest (adult) (1 source) Respiratory failure; insufficiency; arrest (adult); Translations: [Hypertensive heart and chronic kidney disease with heart failure and with stage 5 chronic kidney disease, or end stage renal disease] Onset: 3 Thyroid disorders (4 sources) Hypothyroidism; Translations: [Hypothyroidism, unspecified] Onset: 3 Chronic Unclassified (1 source) 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 involvement without evidence of necrosis; Translations: [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 involvement without evidence of necrosis] Onset: 3 Unclassified (1 source) Acidosis, unspecified; Translations: [Acidosis, unspecified] Onset: 3 Past or Other Problems Problem Classification Problem Date Documented Date Episodic/Chronic Deficiency and other anemia (4 sources) Anemia, unspecified; Translations: [Anemia, unspecified] Onset: 06-11-2022 06-11-2022 Episodic Immunizations and screening for infectious disease (2 sources) Other specified abnormal immunological findings in serum; Translations: [Other and unspecified nonspecific immunological findings] Onset: 10-02-2021 Episodic Other aftercare (3 sources) 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; Translations: [Long-term (current) [...] [Other acute postprocedural pain] Onset: 05-28-2022 Episodic Residual codes; unclassified (4 sources) Personal history of other specified conditions; Translations: [Personal history of other specified diseases] Onset: 06-11-2022 06-11-2022 Episodic Residual codes; unclassified (3 sources) Other specified postprocedural states; Translations: [Other postprocedural status] Onset: 06-11-2022 06-15-2022 Episodic Residual codes; unclassified (1 source) Edema of lower extremity Onset: 04-21-2019 09-09-2023 Episodic Skin and subcutaneous tissue infections (16 sources) Abscess of right foot; Translations: [Cutaneous abscess of right foot] Onset: 08-13-2022 08-13-2022 Episodic Results Test Name Value Interpretation Reference Range Facility 36on 11-06-2024 36 Phone call from patients , states they talked to the thoracic surgeon in reference to Gopal having bypass, per they told the thoracic surgeon they wanted to wait until after the of the year, surgeon advised them to speak to his social worker clinical. advise that they are going on vacation in December and he wants to go on this trip, also states he wants to spend 1 last sylvia with his family as he feels he will not make it from having open heart surgery. wants to know if they need to follow up with you or just plan on doing the surgery after the first of the year. Please advise. [facility] 36on 11-03-2024 36 Patient wanted order s (labs,US,PFT) sent to [place] these were faxed over to [phone]. [facility] Orders Onlyon 11-01-2024 Orders Only [id number] Gopal Yates 1965 M Date Provider Department Center 11/01/[address] Surgery None Family History Problem Relation Age of Onset Alzheimer's disease Mother Hypertension Mother Breast cancer Mother Coronary artery disease Father Hypertension Father Diabetes Father Stroke Father COPD Father Hyperlipidemia Father Coronary artery disease Paternal Grandmother Family Status - Relation Status Age at Mother Father Daughter Alive Daughter Alive Paternal Grandmother Normal [facility] Orders Only [id number] Gopal Yates 1965 M Date Provider Department Center 11/01/2024 [id number] TOM [facility] Family History Problem Relation Age of Onset Alzheimer's disease Mother Hypertension Mother Breast cancer Mother Coronary artery disease Father Hypertension Father Diabetes Father Stroke Father COPD Father Hyperlipidemia Father Coronary artery disease Paternal Grandmother Family Status - Relation Status Age at Mother Father Daughter Alive Daughter Alive Paternal Grandmother Normal [facility] 29on 10-31-2024 29 Addended by: STEVE TOM on: 11/01/2024 02:06 PM Modules accepted: Orders [facility] 29 Addended by: STEVE TOM on: 11/01/2024 01:41 PM Modules accepted: [facility] Consulton 10-31-2024 Consult [id number] Gopal Yates Kajal 1965 M Date Provider Department Center 10/31/2024 113JANELLE WESLEY [facility] Family History Problem Relation Age of Onset Alzheimer's disease Mother Hypertension Mother Breast cancer Mother Coronary artery disease Father Hypertension Father Diabetes Father Stroke Father COPD Father Hyperlipidemia Father Coronary artery disease Paternal Grandmother Family Status - Relation Status Age at Mother Father Daughter Alive Daughter Alive Paternal Grandmother Level of Service:90939 [place] OFFICE/OP CONSLTJ NEW/EST PT MOD MDM 40 MINUTES Reason for Visit and Comments: Consult [484] - Referred by Dr Sosa [facility] HPon 10-19-2024 History Of Present Illness Gopal Yates is a 59 y.o. male presenting for left and right coronary angiogram today. Past medical history includes: Coronary artery disease status post intervention in 2019 to the circumflex. At that time he had calcified 70% LAD stenosis with an IFR of 0.8 and mild to moderate RCA stenosis. He has chronic systolic heart failure. He has history of uncontrolled systemic hypertension in the past. He has chronic kidney disease and in May 2022 he was started on peritoneal dialysis. In May 2022 he was admitted to [facility] for osteomyelitis and had toe amputations. In August 2023 he was evaluated in cardiology clinic and because of low LDL levels of his ezetimibe was stopped. At visit of 12/22/2023 and due to low LDL I reduced pravastatin to 20 mg daily. Patient underwent a stress test that was positive for a reversible perfusion defect. Past Medical History He has a past medical history of Anemia in chronic kidney disease (CKD), Anxiety, CHF (congestive heart failure) ([facility]), Chronic fatigue syndrome, Chronic sinusitis, Coronary artery disease, Diabetic foot ulcers ([facility]), Diabetic neuropathy ([facility]), ED (erectile dysfunction), ESRD (end stage renal disease) ([facility]) (06/17/2022), GERD (gastroesophageal reflux disease), Heart valve disease, History of pleural effusion, History of tobacco use, Hyperlipidemia, Hypertension, Hypothyroidism, Myocardial infarction ([facility]), Osteomyelitis ([facility]), Panic attack, Pericardial effusion, Proteinuria, Pulmonary nodules, PVD (peripheral vascular disease), Secondary hyperparathyroidism of renal origin, Swelling of both lower extremities, Type 2 diabetes mellitus ([facility]), and Vitamin D deficiency. Surgical History He has a past surgical history that includes Cardiac catheterization (Right, 05/20/2021); Cardiac catheterization (02/07/2020); Toe amputation (05/07/2022); Peritoneal catheter insertion (05/28/2022); Wound debridement (Right, 09/04/2022); Abscess drainage (Left, 10/07/2022); and Colonoscopy (2016). Social History He reports that he quit smoking about 30 years ago. His smoking use included cigarettes. He started smoking about 42 years ago. He has a 12 pack-year smoking history. He has never used smokeless tobacco. He reports that he does not currently use alcohol. He reports that he does not use drugs. Allergies Sulfa (sulfonamide antibiotics) Medications Prescriptions Prior to Admission[1] Review of Systems All other systems reviewed and are negative. Physical Exam Physical Exam Constitutional: Appearance: He is well-developed. [...] soft. Tenderness: There is no abdominal tenderness. Musculoskeletal: General: No swelling. Cervical back: Neck supple. Skin: General: Skin is warm and dry. Neurological: General: No focal deficit present. Mental Status: He is alert and oriented to person, place, and time. Psychiatric: Mood and Affect: Mood normal. Behavior: Behavior is cooperative. Judgment: Judgment normal. Relevant Results Stress test on 10/04/2024: Positive perfusion stress test for ischemia Abnormal [...] coronary calcification on attenuation correction CT scan Echocardiogram 05/16/2024: CONCLUSION: 1. The left ventricular is normal in size and exhibits mild concentric hypertrophy with low normal systolic function. There is hypokinesis of the inferior lateral wall. Estimated LVEF is 50 to 55%. 2. Normal right ventricular size and systolic function. 3. Mild biatrial dilatation. 4. No significant valvular dysfunction. 5. Moderately dilated aortic root measuring 4.1 cm. 6. Normal right-sided pressures. Echocardiogram 07/09/2022: Left ventricle: Normal chamber size. Thickened septal wall. Diffuse global hypokinesis. Mildly to moderately reduced left ventricular ejection fracti (more content not included)... Normal [facility] NURSNOTEon 10-19-2024 NURSNOTE RN educated pt on d/ c instructions. This included: site care, limited physical activity, resume normal diet, future appointments, medications, and moderate sedation instructions. RN educated pt on when to notify physician and when to go to the hospital. RN educated pt on importance of not overusing stairs at this time and limited weight bearing of 5lbs. RN encouraged pt to voice any questions or concerns, and answered any questions or concerns if pt verbalized. Pt was wheeled off of unit with all of belongings. [facility] 10-17-2024 36 [facility] lab called brynn amos creatinine of 11.11. FYI. Result scanned into family mediator for your review. [facility] 10-05-2024 29 Addended by: IRAJ PEREZ on: 10/05/2024 12:21 PM Modules accepted: Orders [facility] 10-05-2024 36 Attempted to call patient to let him know his cardiac cath w/ Dr. Sosa had been scheduled. No answer / unable to LVM. Patient is scheduled for 10/19/24 () at 12:30 pm , with arrival at 11 am. Patient will need pre-procedure labs done Wednesday10/16/24 locally ([place]). [facility] 36 ----- Message from Lily Sosa MD sent at 10/05/2024 2:36 AM EDT ----- The stress test showed ischemia. he needs cardiac cath. Please schedule for right heart cath and coronary angiogram. ----- Message ----- From: Interface, Radiology Results In Sent: 10/04/2024 2:38 PM EDT To: Casimiro Sosa MD [facility] Results Follow-Upon 10-06-19 Results Follow-Up [id number] Gopal Yates 1965 M Date Provider Department Center 10/05/2024 [id number] PEREZ TXP None Family History Problem Relation Age of Onset Alzheimer's disease Mother Hypertension Mother Breast cancer Mother Coronary artery disease Father Hypertension Father Diabetes Father Stroke Father COPD Father Hyperlipidemia Father Coronary artery disease Paternal Grandmother Family Status - Relation Status Age at Mother Father Daughter Alive Daughter Alive Paternal Grandmother Reason for Visit and Comments: Cardiac testing results [Other] [facility] 10-04-2024 30 Lexiscan stress test Patient information sheet explained, [...] and hemodynamically stable Full final report from social worker clinical to follow Anel [facility] [place] [facility] Available 7a-3pm via [employer] [phone] [facility] 36on 09-06-2024 36 PT is cleared by ID for transplant, no appt needed. Normal [facility] Documentationon 09-06-2024 Documentation [id number] Gopal Yates 1965 M Date Provider Department Center 09/06/2024 LELAND DAVALOS [facility] Antonietta Heal Family History Problem Relation Age of Onset Alzheimer's disease Mother Hypertension Mother Breast cancer Mother Coronary artery disease Father Hypertension Father Diabetes Father Stroke Father COPD Father Hyperlipidemia Father Coronary artery disease Paternal Grandmother Family Status - Relation Status Age at Mother Father Daughter Alive Daughter Alive Paternal Grandmother [facility] B-TYPE NATRIURETIC PEPTIDEon 08-30-2024 Natriuretic peptide B (Bld) [Mass/Vol] 549 pg/mL High 0-100 [facility] Comment on above: Performed By: #### L [id number] #### [facility] (AKER) [address] [place] [address] BILIRUBIN, DIRECTon 08-31-19 25 Magnesium [Mass/Vol] 0.1 mg/dL Normal 0-0.2 [facility] Comment on above: Performed By: #### L [id number] ####[facility] (AKER)[address] [place] [address] C-PEPTIDEon 08-30-2024 C PEPTIDE (NG/ML) IN SER/PLAS 14.5 ng/mL High 0.5-3.3 [facility] Comment on above: Result Comment: INTE RPRETIVE INFORMATION: Serum, C-Peptide Reference Interval applies to fasting specimens. To convert to nmol/L, multiply by 0.33 Performed By: [employer] [address] [place] [address] Affiliate Marketing Specialist: Cody Gurrola MD, PhD CLIA Number: [id number] Performed By: #### L [id number] #### [facility] [[email or web address]] BLOOD BANK , CBC WITH AUTO DIFFERENTIALon 08-30-2024 Basophils (Bld) [#/Vol] 0.03 10*3/uL Normal 0.00-0.20 [facility] Comment on above: Performed By: #### L [id number] ####[facility] [[email or web address]] HOSPITAL LAB (BEAKER)[address] [place] [address] Basophils/100 WBC (Bld) 0.3 % Normal 0.0-1.0 [facility] Comment on above: Performed By: #### L [id number] ####[facility] (BEAKER)[address] [place] [address] Eosinophils (Bld) [#/Vol] 0.16 10*3/uL Normal 0.00-0.50 [facility] Comment on above: Performed By: #### L [id number] ####[facility] [[email or web address]] HOSPITAL LAB (BEAKER)[address] [place] [address] Eosinophils/100 WBC (Bld) 1.6 % Normal 0.0-6.0 [facility] Comment on above: Performed By: #### L [id number] ####[facility] (BEAKER)[address] [place] [address] Erythrocyte distribution width (RBC) [Ratio] 13.9 % Normal 11.5-15.0 [facility] Comment on above: Performed By: #### L [id number] ####[facility] [[email or web address]] HOSPITAL LAB (BEAKER)[address] [place] [address] ERYTHROCYTE MEAN CORPUSCULAR HEMOGLOBIN CONCENTRATION (G/DL) BY AUTOMATED 33.8 g/dL Normal 32.0-35.0 [facility] Comment on above: Performed By: #### L [id number] ####[facility] (BEAKER)[address] [place] [address] Hematocrit (Bld) [Volume fraction] 27.5 % Low 39.0-50.0 [facility] Comment on above: Performed By: #### L [id number] ####[facility] [[email or web address]] HOSPITAL LAB (BEAKER)[address] [place] [address] Hemoglobin (Bld) [Mass/Vol] 9.3 g/dL Low 13.0-17.0 [facility] Comment on above: Performed By: #### L [id number] ####[facility] (BEAKER)[address] [place] [address] Immature granulocytes (Bld) [#/Vol] 0.04 10*3/uL Normal 0.00-0.20 [facility] Comment on above: Performed By: #### L [id number] ####[facility] (BEAKER)[address] [place] [address] Immature granulocytes/100 WBC (Bld) 0.4 % Normal 0.0-1.0 [facility] Comment on above: Performed By: #### L [id number] ####[facility] (BEAKER)[address] [place] [address] Lymphocytes (Bld) [#/Vol] 1.18 10*3/uL Low 1.20-4.00 [facility] Comment on above: Performed By: #### L [id number] ####[facility] (BEAKER)[address] [place] [address] Lymphocytes/100 WBC (Bld) 11.9 % Low 20.0-45.0 [facility] Comment on above: Performed By: #### L [id number] ####[facility] (BEAKER)[address] [place] [address] MCH (RBC) [Entitic mass] 30.7 pg Normal 27.0-33.0 [facility] Comment on above: Performed By: #### L [id number] ####[facility] (BEAKER)[address] [place] [address] MCV (RBC) [Entitic vol] 90.8 fL Normal 82.0-98.0 [facility] Comment on above: Performed By: #### L [id number] ####[facility] (BEAKER)[address] [place] [address] Monocytes (Bld) [#/Vol] 0.69 10*3/uL Normal 0.10-1.00 [facility] Comment on above: Performed By: #### L [id number] ####[facility] [[email or web address]] HOSPITAL LAB (BEAKER)[address] [place] [address] Monocytes/100 WBC (Bld) 6.9 % Normal 5.0-12.0 [facility] Comment on above: Performed By: #### L [id number] ####[facility] [[email or web address]] HOSPITAL [facility] (BEAKER)[address] [place] [address] Neutrophils (Bld) [#/Vol] 7.85 10*3/uL High 1.60-7.60 [facility] Comment on above: Performed By: #### L [id number] ####[facility] (BEAKER)[address] [place] [address] Neutrophils/100 WBC (Bld) 78.9 % High 40.0-72.0 [facility] Comment on above: Performed By: #### L [id number] ####[facility] (BEAKER)[address] [place] [address] NRBC (PER 100 WBCS) BY AUTOMATED COUNT 0.0 % Normal 0 [facility] Comment on above: Performed By: #### L [id number] ####[facility] (BEAKER)[address] [place] [address] PLATELETS (10*3/UL) IN BLOOD AUTOMATED COUNT 167 10*3/uL Normal 150-400 [facility] Comment on above: Performed By: #### L [id number] ####[facility] (BEAKER)[address] [place] [address] RBC (Bld) [#/Vol] 3.03 10*6/uL Low 4.20-5.70 [facility] Comment on above: Performed By: #### L [id number] ####[facility] ([facility]AKER)[address] [place] [address] WBC (Bld) [#/Vol] 9.95 10*3/uL Normal 4.00-10.60 [facility] Comment on above: Performed By: #### L [id number] ####[facility] [[email or web address]] HOSPITAL LAB (PRATIBHA)[address] [place] [address] COMPREHENSIVE METABOLIC PANE Stewart 08-30-2024 Albumin [Mass/Vol] 3.3 g/dL Low 3.5-5.7 [facility] Comment on above: Performed By: #### L [id number] #### [facility] [[email or web address]] BLOOD BANK , ALP [Catalytic activity/Vol] 115 U/L High 34-104 [facility] Comment on above: Performed By: #### L [id number] #### [facility] [[email or web address]] BLOOD BANK , ALT [Catalytic activity/Vol] 17 U/L Normal 7-52 [facility] Comment on above: Performed By: #### L [id number] #### [facility] [[email or web address]] BLOOD BANK , Anion gap [Moles/Vol] 15 mmol/L Normal 7-20 [facility] Comment on above: Performed By: #### L [id number] #### [facility] [[email or web address]] BLOOD BANK , AST [Catalytic activity/Vol] 13 U/L Normal 13-39 [facility] Comment on above: Performed By: #### L [id number] #### [facility] [[email or web address]] BLOOD BANK , Bilirubin [Mass/Vol] 0.4 mg/dL Normal 0.3-1.0 [facility] Comment on above: Performed By: #### L [id number] #### [facility] [[email or web address]] BLOOD BANK , Calcium [Mass/Vol] 8.6 mg/dL Normal 8.6-10.3 [facility] Comment on above: Performed By: #### L [id number] #### [facility] [[email or web address]] BLOOD BANK , Chloride [Moles/Vol] 99 mmol/L Normal 98-107 [facility] Comment on above: Performed By: #### L [id number] #### [facility] [[email or web address]] BLOOD BANK , CO2 [Moles/Vol] 30 mmol/L Normal 21-31 [facility] Comment on above: Performed By: #### L [id number] #### [facility] [[email or web address] BLOOD BANK , Creatinine [Mass/Vol] 10.34 mg/dL High 0.70-1.30 [facility] Comment on above: Performed By: #### L [id number] #### [facility] [[email or web address]] BLOOD BANK , GLOMERULAR FILTRATION RATE ML/MIN/1.73 SQ M.PREDICTED 5.2 mL/min/1.73m*2 Low >60.0 [facility] Comment on above: Result Comment: The [facility]???s estimated glomerular filtration rate (eGFR) will no longer include consideration of race in its calculation. The National Kidney Foundation???s eGFR Task Force developed new recommendations for [...] disproportionately affect any one group of individuals. Performed By: #### L [id number] #### [facility] [[email or web address]] BLOOD BANK , Glucose [Mass/Vol] 148 mg/dL High 70-100 [facility] Comment on above: Performed By: #### L [id number] #### [facility] [[email or web address] BLOOD BANK , Potassium [Moles/Vol] 3.8 mmol/L Normal 3.5-5.1 [facility] Comment on above: Performed By: #### L [id number] #### [facility] [[email or web address]] BLOOD BANK , Protein [Mass/Vol] 6.6 g/dL Normal 6.0-8.3 [facility] Comment on above: Performed By: #### L [id number] #### [facility] [[email or web address]] BLOOD BANK , Sodium [Moles/Vol] 140 mmol/L Normal 136-145 [facility] Comment on above: Performed By: #### L [id number] #### [facility] [[email or web address]] BLOOD BANK , Urea nitrogen [Mass/Vol] 40 mg/dL High 7-25 [facility] Comment on above: Performed By: #### L [id number] #### [facility] [[email or web address]] BLOOD BANK , UREA NITROGEN/CREATININE (MASS RATIO) IN SER/PLAS 3.9 Normal [facility] Comment on above: Performed By: #### L [id number] #### [facility] [[email or web address]] BLOOD BANK , CT ABDOMEN PELVIS WO RENAL R ECIPIENTon 08-30-2024 CT ABDOMEN PELVIS WO RENAL RECIPIENT CT ABDOMEN AND PELVIS WITHOUT CONTRAST COMPARISON: [...] as reasonably achievable. Electronically signed: Jeremy Marshall. Normal [facility] CT CHEST WO IV CONTRASTon CT CHEST WO IV CONTRAST CT CHEST WO IV C ONTRAST CLINICAL INFORMATION: Lung nodule. COMPARISON: None. PROCEDURE: [...] caliber. No enlarged lymph nodes. Degenerative changes. IMPRESSION: * Small pulmonary nodules as detailed above measuring 4 mm or less, optional twelve-month follow-up CT could be obtained in a high-risk patient. Low risk patient requires no follow-up. * Pleural thickening right hemithorax with areas of scarring. * Please see above for further details. Electronically signed: Esteban Orozco MD. 8 Invalid Interpretation Code [facility] Clinical Supporton 5 Clinical Support [id number] Gopal Yates 1965 M Date Provider Department [place] 08/30/2024 GOPAL SANTANA None Family History Problem Relation Age of Onset Alzheimer's disease Mother Hypertension Mother Breast cancer Mother Coronary artery disease Father Hypertension Father Diabetes Father Stroke Father COPD Father Hyperlipidemia Father Coronary artery disease Paternal Grandmother Family Status - Relation Status Age at Mother Father Daughter Alive Daughter Alive Paternal Grandmother Reason for Visit and Comments: Kidney Eval [[id number]] Normal [facility] HEMOGLOBIN A1Con 08-30-2024 Glucose [Mass/Vol] 154 mg/dL Normal [facility] Comment on above: Performed By: #### L [id number] ####[facility] (BEAKER)[address] [place] [address] HbA1c (Bld) [Mass fraction] 7.0 % High 4.0-6.0 [facility] Comment on above: Performed By: #### L [id number] ####[facility] (AKER)[address] [place] [address] HEPATITIS A ANTIBODY, IGMon 08-30-2024 HEPATITIS A VIRUS IGM AB PRESENCE IN SER/PLAS Non-Reactive Normal Nonreactive [facility] Comment on above: Performed By: #### L [id number] #### [facility] [[email or web address]] BLOOD BANK , HEPATITIS B CORE ANTIBODY, I GMon 08-30-2024 HEPATITIS B VIRUS CORE IGM AB PRESENCE IN SER/PLAS BY IMMUNOASSY Negative Normal Negative [facility] Comment on above: Result Comment: INTE RPRETIVE INFORMATION: Hepatitis B Core Ab, IgM This assay should not be used for blood donor screening, associated re-entry protocols, or for screening Human Cells, Tissues and Cellular and Tissue-Based Products (HCT/P). Performed By: [employer] [address] [place] [address] Affiliate Marketing Specialist: Cody Gurrola MD, PhD CLIA Number: [id number] Performed By: #### L [id number] ####[facility] [place] [address] HEPATITIS B CORE ANTIBODY, T OTALon 08-30-2024 HEPATITIS B VIRUS CORE AB (PRESENCE) IN SER/PLAS BY IMM Non-Reactive Normal Nonreactive [facility] Comment on above: Performed By: #### L [id number] #### [facility] ([facility]) [address] [place] [address] HEPATITIS B SURFACE ANTIBODY QUANTon 08-30-2024 HEPATITIS B VIRUS SURFACE AB (MIU/ML) IN SERUM 0.36 mIU/mL Normal [facility] Comment on above: Result Comment: INTE RPRETATION: NONREACTIVE <8.00 mIU/mL INDETERMINATE 8.00 - 12.00 mIU/mL REACTIVE >12 mIU/mL Performed By: #### L [id number] #### [facility] ([facility]) [address] [place] [address] HEPATITIS B SURFACE ANTIGENo n 08-30-2024 HEPATITIS B VIRUS SURFACE AG PRESENCE IN SERUM Non-Reactive Normal Nonreactive [facility] Comment on above: Performed By: #### L [id number] #### [facility] [[email or web address]] BLOOD BANK , HEPATITIS C ANTIBODYon 08-30 HEPATITIS C VIRUS AB PRESENCE IN SERUM Non-Reactive Normal Nonreactive [facility] Comment on above: Performed By: #### L [id number] ####[facility] ([facility])[address] [place] [address] HIV COMBO 4Gon 08-30-2024 HIV COMBO 4G Negative Normal Negative [facility] Comment on above: Performed By: #### L [id number] #### [facility] [[email or web address]] BLOOD BANK , HLA ABC CLASS I TYPINGon A*-1 2 [facility] Comment on above: Performed By: #### L [id number] ####[facility] [[email or web address]] TISSUE TYPING (HISTOTRAC)[address] [place] [address] [place] A*-2 3 [facility] Comment on above: Performed By: #### L [id number] ####[facility] [[email or web address]] TISSUE TYPING (HISTOTRAC)[address] [place] [address] [place] B*-1 8 [facility] Comment on above: Performed By: #### L [id number] ####[facility] [[email or web address]] TISSUE TYPING (HISTOTRAC)[address] [place] [address] [place] B*-2 44 [facility] Comment on above: Performed By: #### L [id number] ####[facility] [[email or web address]] TISSUE TYPING (HISTOTRAC)[address] [place] [address] [place] BW*-1 4 [facility] Comment on above: Performed By: #### L [id number] ####[facility] [[email or web address]] TISSUE TYPING (HISTOTRAC)[address] [place] [address] [place] BW*-2 6 [facility] Comment on above: Performed By: #### L [id number] ####[facility] [[email or web address]] TISSUE TYPING (HISTOTRAC)[address] [place] [address] [place] C*-1 5 [facility] Comment on above: Performed By: #### L [id number] ####[facility] [[email or web address]] TISSUE TYPING (HISTOTRAC)[address] [place] [address] [place] C*-2 7 [facility] Comment on above: Performed By: #### L [id number] ####[facility] [[email or web address]] TISSUE TYPING (HISTOTRAC)[address] [place] [address] [place] HLA ABC CLASS I TYPING TEST METHOD Class I typing by PCR-SSOP Lumine[employer] [facility] Comment on above: Performed By: #### L [id number] ####[facility] [[email or web address]] TISSUE TYPING (HISTOTRAC)[address] [facility] [place] [address] [place] HLA ABC TESTED DATE [id number] [facility] Comment on above: Performed By: #### L [id number] ####[facility] [[email or web address]] TISSUE TYPING (HISTOTRAC)[address] [place] [address] CLASS II TYPINGon DPB1*-1 04:01 [facility] Comment on above: Performed By: #### L [id number] ####[facility] [[email or web address]] TISSUE TYPING (HISTOTRAC)[address] [place] [address] [place] DQA1*-1 05 [facility] Comment on above: Performed By: #### L [id number] ####[facility] [[email or web address]] TISSUE TYPING (HISTOTRAC)[address] [place] [address] [place] DQB1*-1 2 [facility] Comment on above: Performed By: #### L [id number] ####[facility] [[email or web address]] TISSUE TYPING (HISTOTRAC)[address] [place] [address] [place] DQB1*-2 7 [facility] Comment on above: Performed By: #### L [id number] ####[facility] [[email or web address]] TISSUE TYPING (HISTOTRAC)[address] [place] [address] [place] DRB1*-1 17 [facility] Comment on above: Performed By: #### L [id number] ####[facility] [[email or web address]] TISSUE TYPING (HISTOTRAC)[address] [place] [address] [place] DRB1*-2 12 [facility] Comment on above: Performed By: #### L [id number] ####[facility] [[email or web address]] TISSUE TYPING (HISTOTRAC)[address] [place] [address] [place] DRB3*-1 52 [facility] Comment on above: Performed By: #### L [id number] ####[facility] [[email or web address]] TISSUE TYPING (HISTOTRAC)[address] [place] [address] [place] DRB3*-2 52 Normal [facility] Comment on above: Performed By: #### L [id number] ####[facility] [[email or web address]] TISSUE TYPING (HISTOTRAC)[address] [place], [place] [address] HLA DR CLASS II TYPING TEST METHOD Class II typing by PCR-SSOP [employer] Normal [facility] Comment on above: Performed By: #### L [id number] ####[facility] [[email or web address]] TISSUE TYPING (HISTOTRAC)[address] [place] [address] [facility] HLA DR TESTED DATE Normal Un [facility] Comment on above: Performed By: #### L [id number] ####[facility] [[email or web address]] TISSUE TYPING (HISTOTRAC)[address] [place], [place] [address] LIPID PANELon 08-30-2024 CHOL/HDL 4.6 mg/dL Normal [facility] Comment on above: Performed By: #### L [id number] #### [facility] [[email or web address]] HOSPITAL LAB (BEAKER) [address] [place] [address] Cholesterol [Mass/Vol] 124 mg/dL Normal 120-200 [facility] Comment on above: Performed By: #### L [id number] #### [facility] [[email or web address]] HOSPITAL LAB (BEAKER) [address] [place] [address] Magnesium [Mass/Vol] 198 mg/dL High <150 [facility] Comment on above: Result Comment: TRIG LYCERIDE REFERENCE RANGE: 20 YEARS AND OLDER CARDIOVASCULAR RISK LESS THAN 150 mg/dL LOW RISK 150 TO 199 mg/dL BORDERLINE RISK 200 mg/dL AND GREATER HIGH RISK Performed By: #### L [id number] #### [facility] [[email or web address]] HOSPITAL LAB (BEAKER) [address] [place] [address] Magnesium [Mass/Vol] 57 mg/dL Normal 0-160 [facility] Comment on above: Performed By: #### L [id number] #### [facility] ([facility]) [address] [place] [address] Magnesium [Mass/Vol] 27 mg/dL Normal 23-92 [facility] Comment on above: Performed By: #### L [id number] #### [facility] ([facility]) [address] [place] [address] NON HDL CHOL. (LDL+VLDL) 97 Normal [facility] Comment on above: Performed By: #### L [id number] #### [facility] ([facility]) [address] [facility] [place] [address] TOTAL VLDL-C 40 mg/dL Normal 0-40 [facility] Comment on above: Performed By: #### L [id number] #### [facility] ([facility]) [address] [facility] [place] [address] Labon 08-30-2024 Lab [id number] Gopal Yates 1965 M Date Provider Department Center 08/30/2024 2245-[facility] [[email or web address] OPD LAB RESOURCE [facility] [[email or web address]] [place] [place] [facility] Family History Problem Relation Age of Onset Alzheimer's disease Mother Hypertension Mother Breast cancer Mother Coronary artery disease Father Hypertension Father Diabetes Father Stroke Father COPD Father Hyperlipidemia Father Coronary artery disease Paternal Grandmother Family Status - Relation Status Age at Mother Father Daughter Alive Daughter Alive Paternal Grandmother Normal [facility] PANEL REACTIVE ANTIBODYon HOLD SPECIMEN Hold for add-ons. Normal [facility] Comment on above: Result Comment: Auto resulted. Performed By: #### L [id number] #### [facility] [[email or web address]] BLOOD BANK , PROTIME-INRon 08-30-2024 INR IN PPP BY COAGULATION ASSAY 0.95 Normal 0.90-1.10 [facility] Comment on above: Result Comment: ACCC P RECOMMENDED INR FOR WARFARIN THERAPY CONDITION INR PROPHYLAXIS OF VENOUS THROMBOSIS 2-3 (HIGH-RISK SURGERY) TREATMENT OF VENOUS THROMBOSIS 2-3 TREATMENT OF PULMONARY EMBOLISM 2-3 PREVENTION OF SYSTEMIC EMBOLISM: 2-3 ACUTE MYOCARDIAL INFARCTION TISSUE HEART VALVES VALVULAR HEART DISEASE ATRIAL FIBRILLATION RECURRENT SYSTEMIC EMBOLISM MECHANICAL HEART VALVE 2.5-3.5 FROM: ORAL ANTICOAGULANTS. MECHANISM OF ACTION, CLINICAL EFFECTIVENESS, AND OPTIMAL THERAPEUTIC RANGE. CHEST 1995;108:231S-246S. Performed By: #### L [id number] #### [facility] ([facility]) [address] [place] [address] PROTHROMBIN TIME (PT) IN PPP BY COAGULATION ASSAY 12.7 Seconds Normal 12.3-14.8 [facility] Comment on above: Performed By: #### L [id number] #### [facility] ([facility]) [address] [place] [address] PSA, SCREENINGon 08-30-2024 PROSTATE SPECIFIC AG (NG/ML) IN SER/PLAS 0.6 ng/mL Normal 0.4-4 [facility] Comment on above: Performed By: #### L [id number] #### [facility] [[email or web address]] BLOOD BANK , SINGLE ANTIGEN CLASS Ion AB SCREEN COMMENTS Potential specificit es added to the watch list. Normal [facility] Comment on above: Performed By: #### L [id number] ####[facility] [[email or web address]] TISSUE TYPING (HISTOTRAC)[address] [place] [address] [place] CLASS I LOW RISK AB A:23 Normal [facility] Comment on above: Performed By: #### L [id number] ####[facility] [[email or web address]] TISSUE TYPING (HISTOTRAC)[address] [place] [address] [place] CLASS I TESTED DATE [id number] Normal [facility] Comment on above: Performed By: #### L [id number] ####[facility] [[email or web address]] TISSUE TYPING (HISTOTRAC)[address] [place] [address] [place] CPRA 0 Normal [facility] Comment on above: Performed By: #### L [id number] ####[facility] [[email or web address]] TISSUE TYPING (HISTOTRAC)[address] [place] [address] [facility] Performed By: #### L [id number] #### [facility] [[email or web address]] BLOOD BANK , SIGNED BY Signed by Gopal damon CHT([facility]) SAMEER([facility] [employer] Manager Transplant Immunology Normal [facility] Comment on above: Result Comment: Clas s I Antigen Microbeads Performed By: #### L [id number] ####[facility] [[email or web address]] TISSUE TYPING (HISTOTRAC)[address] [place] [address] [facility] Performed By: #### L [id number] ####[facility] [[email or web address]] TISSUE TYPING (HISTOTRAC)[address] [place] [address] [facility] Performed By: #### L [id number] ####[facility] [[email or web address]] TISSUE TYPING (HISTOTRAC)[address] [place], [place] [address] Performed By: #### L [id number] #### [facility] [[email or web address]] BLOOD BANK , SINGLE ANTIGEN CLASS 1 TEST METHOD Class I Single Antigen Normal [facility] Comment on above: Performed By: #### L [id number] ####[facility] [[email or web address]] TISSUE TYPING (HISTOTRAC)[address] [place] [address] [facility] SINGLE ANTIGEN CLASS IIon AB SCREEN COMMENTS No Specificites Found [facility] Comment on above: Performed By: #### L [id number] #### [facility] [[email or web address]] BLOOD BANK , CLASS II TESTED DATE [id number] [facility] Comment on above: Performed By: #### L [id number] #### [facility] [[email or web address]] BLOOD BANK , SINGLE ANTIGEN CLASS 2 TEST METHOD Class II Single Antigen Normal [facility] Comment on above: Result Comment: Clas s II Antigen Microbeads Performed By: #### L [id number] #### [facility] [[email or web address]] BLOOD BANK , TESTOSTERONE, FREE AND TOTAL , AND SHBGon 08-30-2024 SEX HORMONE BINDING GLOBULIN (NMOL/L) IN SER/PLAS 54 nmol/L Normal 19-76 [facility] Comment on above: Performed By: #### L [id number] #### [facility] [address] [place] [address] TESTOSTERONE (NG/DL) IN SER/PLAS 353 ng/dL Normal 193-740 [facility] Comment on above: Performed By: #### L [id number] #### [facility] [address] [place] [address] TESTOSTERONE FREE (NG/ML) IN SER/PLAS 50.9 pg/mL Normal 47.0-244.0 [facility] Comment on above: Result Comment: The concentration of free testosterone is derived from a mathematical expression based on the constant for the binding of testosterone to albumin and/or sex hormone binding globulin. Test Performed by [facility] [place] [address] - Released 08/30/2024 18:39 Performed By: #### L [id number] #### [facility] [address] [place] [address] TYPE AND SCREENon 08-30-2024 AB SCREEN Negative Normal [facility] Comment on above: Performed By: #### L [id number] #### [facility] [[email or web address]] BLOOD BANK , ABO group Nom (Bld) A Normal [facility] Comment on above: Performed By: #### L [id number] #### [facility] [[email or web address]] BLOOD BANK , RH TYPE IN BLOOD Positive Normal [facility] Comment on above: Performed By: #### L [id number] #### [facility] [[email or web address]] BLOOD BANK , Office Visiton 06-21-2024 Follow-up visit [id number] Gopal Yates 1965 M Date Provider Department Center 06/21/2024 CASIMIRO SANDRA Family History Problem Relation Age of Onset Alzheimer's disease Mother Coronary artery disease Father Coronary artery disease Paternal Grandmother Family Status - Relation Status Age at Mother Father Paternal Grandmother Level of Service:46874 [place] OFFICE/OUTPATIENT ESTABLISHED LOW MDM 20 MIN Normal [facility] Office Visiton 12-22-2023 Follow-up visit [id number] Gopal Yates 1965 M Date Provider Department Center 12/22/2023 CASIMIRO SANDRA Family History Problem Relation Age of Onset Coronary artery disease Father Coronary artery disease Paternal Grandmother Family Status - Relation Status Age at Father Paternal Grandmother Level of Service:74108 [place] OFFICE/OUTPATIENT ESTABLISHED MOD MDM 30 MIN Normal [facility] Lab Reportson 09-09-2023 Lab Reports [id number] FF Normal [facility] Physician Referralon 024 Physician Referral [id number] IFF Normal [facility] Vancomycin,Randomon 08-07-19 23 Vancomycin,Random 9.4 ug/mL Normal 5.0-20.0 [facility] Comment on above: Order Comment: Date of last dose?: [id number] Time of last dose?: 1529 Result Comment: Last dose: - PERFORMED BY: [place] [address] PATHOLOGIST PRODUCT MARKETER SESAR VAUGHN M.D. Performed By: #### C RP #### [facility] [address] [place] [address] Superficial Wound Cultureon 07-22-2022 Superficial Wound Culture Light Normal Skin Efren 2 Days PERFORMED BY: [place] [address] PATHOLOGIST PRODUCT MARKETER SESAR VAUGHN M.D. [facility] Comment on above: Performed By: #### C RP #### [facility] [address] [place] [address] ECHOCARDIO M/2D COMPLETEon 0 07-09-2022 ECHOCARDIO M/2D COMPLETE Patient: GOPAL YATES Exam Date: 07/09/2022 : 1965 Gender:M Ordering : [facility] Admission #: [id number] Family : Order #: [id number] CLICK HERE TO VIEW EXAM ECHOCARDIOGRAM REPORT [...] Sosa M.D. on 07/09/2022 at 20:28 Normal [facility] Alanine aminotransferase [En zymatic activity/volume] in Serum or PlasmaOrdered By: Caleb Farrar on 06-15-2022 ALT [Catalytic activity/Vol] 17 U/L 7-52 [facility] Albumin [Mass/volume] in Ser um or Plasma by Bromocresol green (BCG) dye binding methoOrdered By: Caleb Farrar on 06-15-2022 Albumin BCG dye [Mass/Vol] 2.2 g/dL 3.5-5.7 [facility] Alkaline phosphatase [Enzyma tic activity/volume] in Serum or PlasmaOrdered By: Caleb Farrar on 06-15-2022 ALP [Catalytic activity/Vol] 148 U/L 34-104 [facility] Aspartate aminotransferase [ Enzymatic activity/volume] in Serum or PlasmaOrdered By: Caleb Farrar on 06-15-2022 AST [Catalytic activity/Vol] 35 U/L 13-39 [facility] Basophils Auto (Bld) [#/Vol] Ordered By: Caleb Farrar on 06-15-2022 Basophils (Bld) [#/Vol] 0.0 10*3/uL 0.0-0.2 [facility] Basophils/100 WBC Auto (Bld) Ordered By: Caleb Farrar on 06-15-2022 Basophils/100 WBC (Bld) 0.6 % . F [facility] Bilirubin.total [Mass/volume ] in Serum or PlasmaOrdered By: Caleb Baconomar on 06-15-2022 Bilirubin [Mass/Vol] 0.5 mg/dL 0.3-1.0 [facility] C reactive protein [Mass/vol ume] in Serum or PlasmaOrdered By: Ashutosh Thomas on 06-15-2022 CRP [Mass/Vol] 14.7 mg/dL 0.0-0.5 [facility] C-Reactive Proteinon 023 C-Reactive Protein 14.7 mg/dL High 0.0-0.5 [facility] Comment on above: Result Comment: PERF ORMED BY: [place] [address] PATHOLOGIST PRODUCT MARKETER SESAR VAUGHN M.D. Performed By: #### C RP #### [address] Calcium [Mass/volume] in Ser um or PlasmaOrdered By: Caleb Baconomaiesha on 06-15-2022 Calcium [Mass/Vol] 8.1 mg/dL 8.6-10.3 [facility] Carbon dioxide, total [Moles /volume] in Serum or PlasmaOrdered By: Caleb Baconomar on 06-15-2022 CO2 [Moles/Vol] 18.0 mmol/L 21.0-31.0 [facility] Chloride [Moles/volume] in S yulissa or PlasmaOrdered By: Obcheyennedaandrea Baconomar on 06-15-2022 Chloride [Moles/Vol] 105 mmol/L 98-107 [facility] Complete Blood Count Auto Di ffon 06-15-2022 Basophils (Bld) [#/Vol] 0.0 10*3/uL Normal 0.0-0.2 [facility] Comment on above: Result Comment: PERF ORMED BY: [place] [address] PATHOLOGIST PRODUCT MARKETER SESAR VAUGHN M.D. Performed By: #### G LULS #### Point of Care testing , Basophils/100 WBC (Bld) 0.6 % Normal . [facility] Comment on above: Performed By: #### G LULS #### Point of Care testing , Eosinophils (Bld) [#/Vol] 0.1 10*3/uL Normal 0.0-0.45 [facility] Comment on above: Performed By: #### G LULS #### Point of Care testing , Eosinophils/100 WBC (Bld) 2.0 % Normal . [facility] Comment on above: Performed By: #### G LULS #### Point of Care testing , Erythrocyte distribution width (RBC) [Ratio] 16.3 % High 12.0-14.8 [facility] Comment on above: Performed By: #### G HOLGERLS #### Point of Care testing , Hematocrit (Bld) [Volume fraction] 21.3 % Low 38.8-50.0 [facility] Comment on above: Performed By: #### G LULS #### Point of Care testing , Hemoglobin (Bld) [Mass/Vol] 7.1 g/dL Low 13.0-17.0 [facility] Comment on above: Performed By: #### G LULS #### Point of Care testing , Lymphocytes (Bld) [#/Vol] 0.4 10*3/uL Low 1.00-4.8 [facility] Comment on above: Performed By: #### G LULS #### Point of Care testing , Lymphocytes/100 WBC (Bld) 7.0 % Normal . [facility] Comment on above: Performed By: #### G LULS #### Point of Care testing , MCH (RBC) [Entitic mass] 27.1 pg Low 27.5-35.2 [facility] Comment on above: Performed By: #### G LULS #### Point of Care testing , MCV (RBC) [Entitic vol] 81.1 fL Low 83.5-101 [facility] Comment on above: Performed By: #### G LULS #### Point of Care testing , Mean Corpuscular HGB Conc 33.4 g/dL Normal 32.5-35.6 [facility] Comment on above: Performed By: #### G BERT #### Point of Care testing , Monocytes (Bld) [#/Vol] 0.6 10*3/uL Normal 0.0-0.8 [facility] Comment on above: Performed By: #### G HOLGERLS #### Point of Care testing , Monocytes/100 WBC (Bld) 9.2 % Normal . [facility] Comment on above: Performed By: #### G HOLGERLS #### Point of Care testing , Neutrophils (Bld) [#/Vol] 5.0 10*3/uL Normal 1.8-7.7 [facility] Comment on above: Performed By: #### G HOLGERLS #### Point of Care testing , Neutrophils/100 WBC (Bld) 81.2 % Normal . [facility] Comment on above: Performed By: #### G HOLGERLS #### Point of Care testing , NRBC% 0.3 /100{WBC} Normal 0-0.5 [facility] Comment on above: Performed By: #### G BERT #### Point of Care testing , Platelet mean volume (Bld) [Entitic vol] 9.0 fL Normal 6.6-10.1 [facility] Comment on above: Performed By: #### Lily NOEL #### Point of Care testing , Platelets (Bld) [#/Vol] 172 10*3/uL Normal 150-450 [facility] Comment on above: Performed By: #### Lily NOEL #### Point of Care testing , RBC (Bld) [#/Vol] 2.63 10*6/uL Low 3.90-5.60 [facility] Comment on above: Performed By: #### Lily NOEL #### Point of Care testing , WBC (Bld) [#/Vol] 6.2 10*3/uL Normal 4.1-10.5 [facility] Comment on above: Performed By: #### G HOLGERLS #### Point of Care testing , Comprehensive Metabolic Pane stewart 06-15-2022 Albumin [Mass/Vol] 2.2 g/dL Low 3.5-5.7 [facility] Comment on above: Performed By: #### G BERT #### Point of Care testing , Albumin/Globulin [Mass ratio] 0.6 {ratio} [facility] Comment on above: Performed By: #### G HOLGERLS #### Point of Care testing , ALP [Catalytic activity/Vol] 148 U/L High 34-104 [facility] Comment on above: Performed By: #### G HOLGERLS #### Point of Care testing , ALT [Catalytic activity/Vol] 17 U/L Normal 7-52 [facility] Comment on above: Performed By: #### Lily NOEL #### Point of Care testing , Anion gap [Moles/Vol] 16.8 mmol/L High 6.0-15.0 [facility] Comment on above: Performed By: #### Lily NOEL #### Point of Care testing , AST [Catalytic activity/Vol] 35 U/L Normal 13-39 [facility] Comment on above: Performed By: #### Lily NOEL #### Point of Care testing , Bilirubin [Mass/Vol] 0.5 mg/dL Normal 0.3-1.0 [facility] Comment on above: Performed By: #### Lily NOEL #### Point of Care testing , Calcium [Mass/Vol] 8.1 mg/dL Low 8.6-10.3 [facility] Comment on above: Performed By: #### Lily NOEL #### Point of Care testing , Chloride [Moles/Vol] 105 mmol/L Normal 98-107 [facility] Comment on above: Performed By: #### Lily NOEL #### Point of Care testing , CO2 [Moles/Vol] 18.0 mmol/L Low 21.0-31.0 [facility] Comment on above: Performed By: #### Lily NOEL #### Point of Care testing , Creatinine [Mass/Vol] 5.47 mg/dL High 0.70-1.30 [facility] Comment on above: Performed By: #### Lily NOEL #### Point of Care testing , Creatinine Clr Calc Pharmacy 18.29 [facility] Comment on above: Result Comment: PERF ORMED BY: [facility] [place] [address] PATHOLOGIST PRODUCT MARKETER SESAR VAUGHN M.D. Performed By: #### G LULS #### Point of Care testing , GFR/1.73 sq M.predicted MDRD (S/P/Bld) [Vol rate/Area] 11.424 mL/min/{1.73_m2} Normal [facility] Comment on above: Performed By: #### G LULS #### Point of Care testing , Globulin (S) [Mass/Vol] 3.5 g/dL Normal [facility] Comment on above: Performed By: #### G LULS #### Point of Care testing , Glucose [Mass/Vol] 117 mg/dL High 74-109 [facility] Comment on above: Result Comment: [facility] Glucose Reference Range is dependent on time and content of last meal. Glucose of more than 200 mg/dL in a nonstressed, ambulatory subject supports the diagnosis of Diabetes Mellitus. ADA recommended reference range Performed By: #### G LULS #### Point of Care testing , Potassium [Moles/Vol] 3.8 mmol/L Normal 3.5-5.1 [facility] Comment on above: Performed By: #### G LULS #### Point of Care testing , Protein [Mass/Vol] 5.7 g/dL Low 6.4-8.9 [facility] Comment on above: Performed By: #### G LULS #### Point of Care testing , Sodium [Moles/Vol] 136 mmol/L Normal 136-145 [facility] Comment on above: Performed By: #### G LULS #### Point of Care testing , Urea nitrogen [Mass/Vol] 114 mg/dL High 7-25 [facility] Comment on above: Performed By: #### G LULS #### Point of Care testing , Creatinine [Mass/volume] in Serum or PlasmaOrdered By: Caleb Farrar on 06-15-2022 Creatinine [Mass/Vol] 5.47 mg/dL 0.70-1.30 [facility] Eosinophils Auto (Bld) [#/Vo l]Ordered By: Caleb Baconomar on 06-15-2022 Eosinophils (Bld) [#/Vol] 0.1 10*3/uL 0.0-0.45 [facility] Eosinophils/100 WBC Auto (Bl d)Ordered By: Obcheyennedaandrea Baconomar on 06-15-2022 Eosinophils/100 WBC (Bld) 2.0 % . [facility] Erythrocyte distribution wid th Auto (RBC) [Ratio]Ordered By: Caleb Baconomar on 06-15-2022 Erythrocyte distribution width (RBC) [Ratio] 16.3 % 12.0-14.8 [facility] Globulin Calc (S) [Mass/Vol] Ordered By: Caleb Baconomar on 06-15-2022 Globulin (S) [Mass/Vol] 3.5 g/dL [facility] Glucose Glucometer (BldC) [M ass/Vol]Ordered By: Vikash Pope on 06-15-2022 Glucose [Mass/Vol] 169 mg/dL [facility] Comment on above: Random Glucose Refer ence Range is dependent on time and content of last meal. Glucose of more than 200 mg/dL in a nonstressed, ambulatory subject supports the diagnosis of Diabetes Mellitus. Glucose Poct Glucometerson 0 06-15-2022 Glucose [Mass/Vol] 169 mg/dL Normal [facility] Comment on above: Result Comment: [facility] Glucose Reference Range is dependent on time and content of last meal. Glucose of more than 200 mg/dL in a nonstressed, ambulatory subject supports the diagnosis of Diabetes Mellitus. PERFORMED BY: [place] [address] PATHOLOGIST PRODUCT MARKETER SESAR VAUGHN M.D. Performed By: #### C #### [address] Glucose [Mass/Vol] 133 mg/dL Normal [facility] Comment on above: Result Comment: [facility] Glucose Reference Range is dependent on time and content of last meal. Glucose of more than 200 mg/dL in a nonstressed, ambulatory subject supports the diagnosis of Diabetes Mellitus. PERFORMED BY: [facility] [place] [address] PATHOLOGIST PRODUCT MARKETER SESAR VAUGHN M.D. Performed By: #### G BERT ####Point of Care testing, Glucose [Mass/volume] in Ser um or PlasmaOrdered By: Caleb Farrar on 06-15-2022 Glucose [Mass/Vol] 117 mg/dL 74-109 [facility] Comment on above: ADA recommended refe rence rangeRandom Glucose Reference Range is dependent on time and content of last meal. Glucose of more than 200 mg/dL in a nonstressed, ambulatory subject supports the diagnosis of Diabetes Mellitus. Hematocrit Auto (Bld) [Volum e fraction]Ordered By: Caleb Farrar on 06-15-2022 Hematocrit (Bld) [Volume fraction] 21.3 % 38.8-50.0 [facility] Hemoglobin [Mass/volume] in BloodOrdered By: Caleb Farrar on 06-15-2022 Hemoglobin (Bld) [Mass/Vol] 7.1 g/dL 13.0-17.0 [facility] Laboratory - Chemistry and C hemistry - challengeOrdered By: Caleb Farrar on 06-15-2022 GFR/1.73 sq M.predicted MDRD (S/P/Bld) [Vol rate/Area] 11.424 mL/min/{1.73_m2} [facility] Leukocytes [#/volume] correc annalisa for nucleated erythrocytes in Blood by Automated counOrdered By: Caleb Farrar on 06-15-2022 WBC corrected for nucl RBC Auto (Bld) [#/Vol] 6.2 10*3/uL 4.1-10.5 [facility] Lymphocytes Auto (Bld) [#/Vo l]Ordered By: Caleb Farrar on 06-15-2022 Lymphocytes (Bld) [#/Vol] 0.4 10*3/uL 1.00-4.8 [facility] Lymphocytes/100 WBC Auto (Bl d)Ordered By: Caleb Daromar on 06-15-2022 Lymphocytes/100 WBC (Bld) 7.0 % . [facility] MCH Auto (RBC) [Entitic mass ]Ordered By: Obcheyennedaandrea Baconomar on 06-15-2022 MCH (RBC) [Entitic mass] 27.1 pg 27.5-35.2 [facility] MCHC Auto (RBC) [Mass/Vol]Or dered By: Obaydah Daromar on 06-15-2022 MCHC (RBC) [Mass/Vol] 33.4 g/dL 32.5-35.6 [facility] MCV Auto (RBC) [Entitic vol] Ordered By: Obcheyennedaandrea Baconomar on 06-15-2022 MCV (RBC) [Entitic vol] 81.1 fL 83.5-101 [facility] Monocytes Auto (Bld) [#/Vol] Ordered By: Obcheyennedaandrea Baconomar on 06-15-2022 Monocytes (Bld) [#/Vol] 0.6 10*3/uL 0.0-0.8 [facility] Monocytes/100 WBC Auto (Bld) Ordered By: Obcheyennedaandrea Baconomar on 06-15-2022 Monocytes/100 WBC (Bld) 9.2 % . [facility] Neutrophils Auto (Bld) [#/Vo l]Ordered By: Obcheyennedaandrea Baconomar on 06-15-2022 Neutrophils (Bld) [#/Vol] 5.0 10*3/uL 1.8-7.7 [facility] Neutrophils/100 WBC Auto (Bl d)Ordered By: Obcheyennedah Jordiomar on 06-15-2022 Neutrophils/100 WBC (Bld) 81.2 % . [facility] No Panel InformationOrdered By: Obadelina Baconomar on 06-15-2022 Pharmacy Creatinine Clearance (Chem 18.29 [facility] Nucleated erythrocytes [Pres ence] in Blood by Automated countOrdered By: Obadelina Baconomar on 06-15-2022 Nucleated RBC Auto Ql (Bld) 0.3 /100{WBC} 0-0.5 [facility] Platelet mean volume Auto (B ld) [Entitic vol]Ordered By: Obaydah Daromar on 06-15-2022 Platelet mean volume (Bld) [Entitic vol] 9.0 fL 6.6-10.1 [facility] Platelets Auto (Bld) [#/Vol] Ordered By: Obaydah Daromar on 06-15-2022 Platelets (Bld) [#/Vol] 172 10*3/uL 150-450 [facility] Potassium [Moles/volume] in Serum or PlasmaOrdered By: Obaydah Daromar on 06-15-2022 Potassium [Moles/Vol] 3.8 mmol/L 3.5-5.1 [facility] Protein [Mass/volume] in Ser um or PlasmaOrdered By: Obaydah Daromar on 06-15-2022 Protein [Mass/Vol] 5.7 g/dL 6.4-8.9 [facility] RBC Auto (Bld) [#/Vol]Ordere d By: Obaydah Daromar on 06-15-2022 RBC (Bld) [#/Vol] 2.63 10*6/uL 3.90-5.60 [facility] Serum or plasma albumin/glob ulin mass ratioOrdered By: Obaydah Daromar on 06-15-2022 Albumin/Globulin [Mass ratio] 0.6 {ratio} [facility] Serum or plasma anion gap de terminationOrdered By: Obaydah Daromar on 06-15-2022 Anion gap [Moles/Vol] 16.8 mmol/L 6.0-15.0 [facility] Sodium [Moles/volume] in Ser um or PlasmaOrdered By: Obaydah Daromar on 06-15-2022 Sodium [Moles/Vol] 136 mmol/L 136-145 [facility] Urea nitrogen [Mass/volume] in Serum or PlasmaOrdered By: Obaydah Daromar on 06-15-2022 Urea nitrogen [Mass/Vol] 114 mg/dL 7-25 [facility] WBC Auto (Bld) [#/Vol]Ordere d By: Obaydah Daromar on 06-15-2022 WBC (Bld) [#/Vol] 6.2 10*3/uL 4.1-10.5 [facility] Basic Metabolic Panelon 05-21 Anion gap [Moles/Vol] 15.6 mmol/L High 6.0-15.0 [facility] Comment on above: Performed By: #### C RP #### [facility] [address] [place] [address] [place] Calcium [Mass/Vol] 8.3 mg/dL Low 8.6-10.3 [facility] Comment on above: Performed By: #### C RP #### [facility] [address] Chloride [Moles/Vol] 107 mmol/L Normal 98-107 [facility] Comment on above: Performed By: #### C RP #### [facility] [address] CO2 [Moles/Vol] 18.4 mmol/L Low 21.0-31.0 [facility] Comment on above: Performed By: #### C RP #### [facility] [address] [place] [address] [place] Creatinine [Mass/Vol] 5.56 mg/dL High 0.70-1.30 [facility] Comment on above: Performed By: #### C RP #### [facility] [address] Creatinine Clr Calc Pharmacy 18.00 [facility] Comment on above: Result Comment: PERF ORMED BY: [place] [address] PATHOLOGIST PRODUCT MARKETER SESAR VAUGHN M.D. Performed By: #### C RP #### [facility] [address] [place] [address] [place] GFR/1.73 sq M.predicted MDRD (S/P/Bld) [Vol rate/Area] 11.203 mL/min/{1.73_m2} [facility] Comment on above: Performed By: #### C RP #### [facility] [address] Glucose [Mass/Vol] 95 mg/dL Normal 74-109 [facility] Comment on above: Result Comment: [place] Glucose Reference Range is dependent on time and content of last meal. Glucose of more than 200 mg/dL in a nonstressed, ambulatory subject supports the diagnosis of Diabetes Mellitus. ADA recommended reference range Performed By: #### C RP #### [facility] [address] [place] [id number] [facility] Potassium [Moles/Vol] 4.0 mmol/L Normal 3.5-5.1 [facility] Comment on above: Performed By: #### C RP #### [facility] [address] Sodium [Moles/Vol] 137 mmol/L Normal 136-145 [facility] Comment on above: Performed By: #### C RP #### [facility] [address] [place] [id number] [facility] Urea nitrogen [Mass/Vol] 113 mg/dL High 7-25 [facility] Comment on above: Performed By: #### C RP #### [facility] [address] abdomen pelvis wo conon 0 06-14-2022 CT abdomen pelvis wo con [facility] [address] [place] [address] CT Scan Report Signed Patient: Gopal Yates Jr MR#: [id number] : 1965 Acct:[id number] Age/Sex: 56 / M ADM Date: 06/11/22 Loc: Room: [address] [place] [address] Type: ADM IN Attending Dr: Caleb Farrar MD Copies to: Caleb Farrar MD Ordering Provider: Caleb Farrar MD Date of Service: 06/14/22 CT/CT abdomen pelvis wo con: Rule out hematoma, intraabdominal bleed ([id number]) CT/CT chest wo con: SOB CT CHEST, [...] Tana Perry M.D.06/14/2022 2:13 PM Dictation Location: [place] [address] Transcribed By: [facility] 06/14/22 1413 Dictated By: Tana Perry MD 06/14/22 1358 Signed By: 06/14/22 1413 Normal [facility] Complete Blood Count Auto Di ffon 06-14-2022 Basophils (Bld) [#/Vol] 0.0 10*3/uL Normal 0.0-0.2 [facility] Comment on above: Result Comment: PERF ORMED BY: [place] [address] PATHOLOGIST PRODUCT MARKETER SESAR VAUGHN M.D. Performed By: #### C RP #### [address] Basophils/100 WBC (Bld) 0.6 % Normal . [facility] Comment on above: Performed By: #### C RP #### [facility] [address] [place] [address] [place] Eosinophils (Bld) [#/Vol] 0.1 10*3/uL Normal 0.0-0.45 [facility] Comment on above: Performed By: #### C RP #### [address] Eosinophils/100 WBC (Bld) 2.4 % Normal . [facility] Comment on above: Performed By: #### C RP #### [facility] [address] Erythrocyte distribution width (RBC) [Ratio] 16.5 % High 12.0-14.8 [facility] Comment on above: Performed By: #### C RP #### [facility] [address] Hematocrit (Bld) [Volume fraction] 21.5 % Low 38.8-50.0 [facility] Comment on above: Performed By: #### C RP #### [address] Hemoglobin (Bld) [Mass/Vol] 7.1 g/dL Low 13.0-17.0 [facility] Comment on above: Performed By: #### C RP #### [address] Lymphocytes (Bld) [#/Vol] 0.5 10*3/uL Low 1.00-4.8 [facility] Comment on above: Performed By: #### C RP #### [address] Lymphocytes/100 WBC (Bld) 7.5 % Normal . [facility] Comment on above: Performed By: #### C RP #### [address] MCH (RBC) [Entitic mass] 27.0 pg Low 27.5-35.2 [facility] Comment on above: Performed By: #### C RP #### [address] MCV (RBC) [Entitic vol] 81.5 fL Low 83.5-101 [facility] Comment on above: Performed By: #### C RP #### [address] Mean Corpuscular HGB Conc 33.1 g/dL Normal 32.5-35.6 [facility] Comment on above: Performed By: #### C RP #### [address] Monocytes (Bld) [#/Vol] 0.7 10*3/uL Normal 0.0-0.8 [facility] Comment on above: Performed By: #### C RP #### [facility] [address] Monocytes/100 WBC (Bld) 10.6 % Normal . [facility] Comment on above: Performed By: #### C RP #### [facility] [address] Neutrophils (Bld) [#/Vol] 4.8 10*3/uL Normal 1.8-7.7 [facility] Comment on above: Performed By: #### C RP #### [address] Neutrophils/100 WBC (Bld) 78.9 % Normal . [facility] Comment on above: Performed By: #### C RP #### [address] NRBC% 0.1 /100{WBC} Normal 0-0.5 [facility] Comment on above: Performed By: #### C RP #### [address] Platelet mean volume (Bld) [Entitic vol] 8.8 fL Normal 6.6-10.1 [facility] Comment on above: Performed By: #### C RP #### [place] [address] [place] Platelets (Bld) [#/Vol] 167 10*3/uL Normal 150-450 [facility] Comment on above: Performed By: #### C RP #### [address] RBC (Bld) [#/Vol] 2.63 10*6/uL Low 3.90-5.60 [facility] Comment on above: Performed By: #### C RP #### [address] WBC (Bld) [#/Vol] 6.1 10*3/uL Normal 4.1-10.5 [facility] Comment on above: Performed By: #### C RP #### [facility] [address] [place] [address] Fecal occult blood detection by immunochemistryOrdered By: Caleb Farrar on 06-14-2022 Hemoglobin.gastrointest inal Ql (Stl) [facility] Glucose Poct Glucometerson 0 06-14-2022 Glucose [Mass/Vol] 185 mg/dL Normal [facility] Comment on above: Result Comment: [place] Glucose Reference Range is dependent on time and content of last meal. Glucose of more than 200 mg/dL in a nonstressed, ambulatory subject supports the diagnosis of Diabetes Mellitus. PERFORMED BY: [place] [address] PATHOLOGIST PRODUCT MARKETER SESAR VAUGHN M.D. Performed By: #### G LULS #### Point of Care testing , Glucose [Mass/Vol] 180 mg/dL Normal [facility] Comment on above: Result Comment: [place] Glucose Reference Range is dependent on time and content of last meal. Glucose of more than 200 mg/dL in a nonstressed, ambulatory subject supports the diagnosis of Diabetes Mellitus. PERFORMED BY: [place] [address] PATHOLOGIST PRODUCT MARKETER SESAR VAUGHN M.D. Performed By: #### C RP #### [address] Glucose [Mass/Vol] 167 mg/dL Normal [facility] Comment on above: Result Comment: [place] Glucose Reference Range is dependent on time and content of last meal. Glucose of more than 200 mg/dL in a nonstressed, ambulatory subject supports the diagnosis of Diabetes Mellitus. PERFORMED BY: [place] [address] PATHOLOGIST PRODUCT MARKETER SESAR VAUGHN M.D. Performed By: #### C RP #### [address] Commemt1 Glu2: Cleaned Meter Normal [facility] Comment on above: Result Comment: PERF ORMED BY: [place] [address] PATHOLOGIST PRODUCT MARKETER SESAR VAUGHN M.D. Performed By: #### C RP #### [address] Glucose [Mass/Vol] 112 mg/dL Normal [facility] Comment on above: Result Comment: [facility] Glucose Reference Range is dependent on time and content of last meal. Glucose of more than 200 mg/dL in a nonstressed, ambulatory subject supports the diagnosis of Diabetes Mellitus. Performed By: #### C RP #### [place] [address] [place] Haptoglobinon 06-14-2022 Haptoglobin 332 mg/dL High 44-215 [facility] Comment on above: Result Comment: PERF ORMED BY: [place] [address] PATHOLOGIST PRODUCT MARKETER SESAR VAUGHN M.D. Performed By: #### C RP #### [address] Haptoglobin [Mass/volume] in Serum or PlasmaOrdered By: Obaydah Daromar on 06-14-2022 Haptoglobin [Mass/Vol] 332 mg/dL 44-215 [facility] LDH Lactate Dehydrogenaseon 06-14-2022 LDH Lactate Dehydrogenase 220 U/L Normal 140-271 [facility] Comment on above: Result Comment: PERF ORMED BY: [place] [address] PATHOLOGIST PRODUCT MARKETER SESAR VAUGHN M.D. Performed By: #### C RP #### [facility] [address] [place] [address] [place] Lactate dehydrogenase [Enzym atic activity/volume] in Serum or Plasma by Lactate to pyOrdered By: Obaydah Daromar on 06-14-2022 LDH Lactate to pyruvate reaction [Catalytic activity/Vol] 220 U/L 140-271 [facility] No Panel InformationOrdered By: Caleb Farrar on 06-14-2022 Bedside Glucose Comment Glu2: cleaned meter [facility] Stool Occult Blood (Immuno)o n 06-14-2022 Stool Occult Blood (Immuno) Occult Blood (Immuno) Negative for Occult Blood by Immunochemical Methodology -------- Reference range = Negative PERFORMED BY: [place] [address] PATHOLOGIST PRODUCT MARKETER SESAR VAUGHN M.D. Normal [facility] Comment on above: Performed By: #### C RP #### [address] Complete Blood Count Auto Di ffon 06-13-2022 Basophils (Bld) [#/Vol] 0.0 10*3/uL Normal 0.0-0.2 [facility] Comment on above: Result Comment: PERF ORMED BY: [place] [address] PATHOLOGIST PRODUCT MARKETER SESAR VAUGHN M.D. Performed By: #### R ENAL, CBC #### [place] [address] [place] Basophils/100 WBC (Bld) 0.6 % Normal . [facility] Comment on above: Performed By: #### R ENAL, CBC #### [facility] [address] [place] [address] [place] Eosinophils (Bld) [#/Vol] 0.1 10*3/uL Normal 0.0-0.45 [facility] Comment on above: Performed By: #### R ENAL, CBC #### [facility] [address] [place] [address] [place] Eosinophils/100 WBC (Bld) 2.1 % Normal . [facility] Comment on above: Performed By: #### R ENAL, CBC #### [place] [address] Erythrocyte distribution width (RBC) [Ratio] 16.9 % High 12.0-14.8 [facility] Comment on above: Performed By: #### R LYNETTE, CBC #### [address] Hematocrit (Bld) [Volume fraction] 20.6 % Low 38.8-50.0 [facility] Comment on above: Performed By: #### R LYNETTE, CBC #### [address] Hemoglobin (Bld) [Mass/Vol] 6.8 g/dL Low 13.0-17.0 [facility] Comment on above: Performed By: #### R LYNETTE, CBC #### [address] Lymphocytes (Bld) [#/Vol] 0.5 10*3/uL Low 1.00-4.8 [facility] Comment on above: Performed By: #### R LYNETTE, CBC #### [address] Lymphocytes/100 WBC (Bld) 6.8 % Normal . [facility] Comment on above: Performed By: #### R LYNETTE, CBC #### [address] MCH (RBC) [Entitic mass] 27.1 pg Low 27.5-35.2 [facility] Comment on above: Performed By: #### R LYNETTE, CBC #### [address] MCV (RBC) [Entitic vol] 81.9 fL Low 83.5-101 [facility] Comment on above: Performed By: #### R LYNETTE, CBC #### [address] Mean Corpuscular HGB Conc 33.1 g/dL Normal 32.5-35.6 [facility] Comment on above: Performed By: #### R LYNETTE, CBC #### [address] [place] [address] [place] Monocytes (Bld) [#/Vol] 0.7 10*3/uL Normal 0.0-0.8 [facility] Comment on above: Performed By: #### R LYNETTE, CBC #### [facility] [address] [place] [address] [place] Monocytes/100 WBC (Bld) 10.4 % Normal . [facility] Comment on above: Performed By: #### R LYNETTE, CBC #### [facility] [address] [place] [address] [place] Neutrophils (Bld) [#/Vol] 5.5 10*3/uL Normal 1.8-7.7 [facility] Comment on above: Performed By: #### Iesha OJEDA, CBC #### [facility] [address] Neutrophils/100 WBC (Bld) 80.1 % Normal . [facility] Comment on above: Performed By: #### R LYNETTE, CBC #### [facility] [address] [place] [address] [place] NRBC% 0.1 /100{WBC} Normal 0-0.5 [facility] Comment on above: Performed By: #### R LYNETTE, CBC #### [facility] [address] [place] [address] [place] Platelet mean volume (Bld) [Entitic vol] 8.9 fL Normal 6.6-10.1 [facility] Comment on above: Performed By: #### R LYNETTE, CBC #### [facility] [address] [place] [address] [place] Platelets (Bld) [#/Vol] 173 10*3/uL Normal 150-450 [facility] Comment on above: Performed By: #### R LYNETTE, CBC #### [facility] [address] [place] [address] [place] RBC (Bld) [#/Vol] 2.52 10*6/uL Low 3.90-5.60 [facility] Comment on above: Performed By: #### R LYNETTE, CBC #### [facility] [address] WBC (Bld) [#/Vol] 6.9 10*3/uL Normal 4.1-10.5 [facility] Comment on above: Performed By: #### R LYNETTE, CBC #### [facility] [address] Comprehensive Metabolic Pane stewart 06-13-2022 Albumin [Mass/Vol] 2.3 g/dL Low 3.5-5.7 [facility] Comment on above: Performed By: #### R LYNETTE, CBC #### [facility] [address] Albumin/Globulin [Mass ratio] 0.7 {ratio} Normal [facility] Comment on above: Performed By: #### R LYNETTE, CBC #### [address] ALP [Catalytic activity/Vol] 160 U/L High 34-104 [facility] Comment on above: Performed By: #### R LYNETTE, CBC #### [address] ALT [Catalytic activity/Vol] 12 U/L Normal 7-52 [facility] Comment on above: Performed By: #### R LYNETTE, CBC #### [address] Anion gap [Moles/Vol] 15.6 mmol/L High 6.0-15.0 [facility] Comment on above: Performed By: #### R LYNETTE, CBC #### [address] AST [Catalytic activity/Vol] 22 U/L Normal 13-39 [facility] Comment on above: Performed By: #### R LYNETTE, CBC #### [address] Bilirubin [Mass/Vol] 0.7 mg/dL Normal 0.3-1.0 [facility] Comment on above: Performed By: #### R LYNETTE, CBC #### [facility] [address] [place] [address] [place] Calcium [Mass/Vol] 8.1 mg/dL Low 8.6-10.3 [facility] Comment on above: Performed By: #### R ENAL, CBC #### [facility] [address] [place] [address] [place] Chloride [Moles/Vol] 107 mmol/L Normal 98-107 [facility] Comment on above: Performed By: #### R LYNETTE, CBC #### [facility] [address] [place] [address] [place] CO2 [Moles/Vol] 18.5 mmol/L Low 21.0-31.0 [facility] Comment on above: Performed By: #### R LYNETTE, CBC #### [facility] [address] Creatinine [Mass/Vol] 5.58 mg/dL High 0.70-1.30 [facility] Comment on above: Performed By: #### R LYNETTE, CBC #### [facility] [address] [place] [address] [place] Creatinine Clr Calc Pharmacy 17.93 [facility] Comment on above: Performed By: #### R LYNETTE, CBC #### [facility] [address] [place] [address] [place] GFR/1.73 sq M.predicted MDRD (S/P/Bld) [Vol rate/Area] 11.155 mL/min/{1.73_m2} [facility] Comment on above: Performed By: #### R ENJENIFFER, CBC #### [facility] [address] [place] [address] [place] Globulin (S) [Mass/Vol] 3.5 g/dL Normal [facility] Comment on above: Performed By: #### R ENJENIFFER, CBC #### [facility] [address] [place] [address] [place] Glucose [Mass/Vol] 97 mg/dL Normal 74-109 [facility] Comment on above: Result Comment: [facility] Glucose Reference Range is dependent on time and content of last meal. Glucose of more than 200 mg/dL in a nonstressed, ambulatory subject supports the diagnosis of Diabetes Mellitus. ADA recommended reference range Performed By: #### R LINSEYAL, CBC #### [facility] [address] Potassium [Moles/Vol] 4.1 mmol/L Normal 3.5-5.1 [facility] Comment on above: Performed By: #### R ENAL, CBC #### [facility] [address] Protein [Mass/Vol] 5.8 g/dL Low 6.4-8.9 [facility] Comment on above: Performed By: #### R LYNETTE, CBC #### [address] Sodium [Moles/Vol] 137 mmol/L Normal 136-145 [facility] Comment on above: Performed By: #### R LYNETTE, CBC #### [facility] [address] [place] [address] Urea nitrogen [Mass/Vol] 114 mg/dL High -25 [facility] Comment on above: Performed By: #### R LYNETTE, CBC #### [facility] [address] [place] [address] [place] Ferritinon 06-13-2022 Ferritin [Mass/Vol] 731.0 ng/mL High 23.9-336.2 [facility] Comment on above: Performed By: #### R LYNETTE, CBC #### [facility] [address] [place] [address] [place] Ferritin [Mass/volume] in Se rum or PlasmaOrdered By: Cristobal Butts on 06-13-2022 Ferritin [Mass/Vol] 731.0 ng/mL 23.9-336.2 [facility] Folate [Mass/volume] in Seru m or PlasmaOrdered By: Cristobal Butts on 06-13-2022 Folate [Mass/Vol] 14.5 ng/mL >5.9 [facility] Comment on above: Folate reference ran ge: >5.9 ng/mlThe WHO technical consultation on folate and vitamin [id number] has determined that folate concentrations lessthan 4 ng/ml are considered deficient. Glucose Poct Glucometerson 0 06-13-2022 Commemt1 Glu2: Cleaned Meter [facility] Comment on above: Result Comment: PERF ORMED BY: [place] [address] PATHOLOGIST PRODUCT MARKETER SESAR VAUGHN M.D. Performed By: #### C CASE, BMP #### [place] [address] [place] Glucose [Mass/Vol] 150 mg/dL Normal [facility] Comment on above: Result Comment: [place] [facility] Glucose Reference Range is dependent on time and content of last meal. Glucose of more than 200 mg/dL in a nonstressed, ambulatory subject supports the diagnosis of Diabetes Mellitus. Performed By: #### C CASE, BMP #### [place] [address] [place] Glucose [Mass/Vol] 139 mg/dL Normal [facility] Comment on above: Result Comment: [place] [facility] Glucose Reference Range is dependent on time and content of last meal. Glucose of more than 200 mg/dL in a nonstressed, ambulatory subject supports the diagnosis of Diabetes Mellitus. PERFORMED BY: [place] [address] PATHOLOGIST PRODUCT MARKETER SESAR VAUGHN M.D. Performed By: #### R ENAL, CBC #### [place] [address] [place] Glucose [Mass/Vol] 198 mg/dL Normal [facility] Comment on above: Result Comment: [place] [facility] Glucose Reference Range is dependent on time and content of last meal. Glucose of more than 200 mg/dL in a nonstressed, ambulatory subject supports the diagnosis of Diabetes Mellitus. PERFORMED BY: [place] [address] PATHOLOGIST PRODUCT MARKETER SESAR VAUGHN M.D. Performed By: #### G LULS ####Point of Care testing, Commemt1 Glu2: Cleaned Meter Normal [facility] Comment on above: Result Comment: PERF ORMED BY: [place] [address] PATHOLOGIST PRODUCT MARKETER SESAR VAUGHN M.D. Performed By: #### G LUEVANGELISTA #### Point of Care testing , Glucose [Mass/Vol] 112 mg/dL Normal [facility] Comment on above: Result Comment: [facility] Glucose Reference Range is dependent on time and content of last meal. Glucose of more than 200 mg/dL in a nonstressed, ambulatory subject supports the diagnosis of Diabetes Mellitus. Performed By: #### G LULS #### Point of Care testing , Iron [Mass/volume] in Serum or PlasmaOrdered By: Cristobal Butts on 06-13-2022 Iron [Mass/Vol] 12 ug/dL 50-212 [facility] Iron and TIBC Profileon 05-21 % Iron Saturation 9.6 % Low 20-50 [facility] Comment on above: Performed By: #### R ENAL, CBC #### [facility] [address] [place], [place] [id number] [facility] Iron [Mass/Vol] 12 ug/dL Low 50-212 [facility] Comment on above: Performed By: #### R LYNETTE, CBC #### [facility] [address] [place], [place] [id number] [facility] Total Iron Binding Capacity 125 ug/dL Low 255-450 [facility] Comment on above: Performed By: #### R ENAL, CBC #### [facility] [address] [place] [address] [place] Transferrin [Mass/Vol] 89 mg/dL Low 203-362 [facility] Comment on above: Performed By: #### R ENAL, CBC #### [facility] [address] [place] [id number] [place] Iron binding capacity [Mass/ volume] in Serum or PlasmaOrdered By: Cristobal Butts on 06-13-2022 Iron binding capacity [Mass/Vol] 125 ug/dL 255-450 [facility] Iron saturation [Mass Fracti on] in Serum or PlasmaOrdered By: Cristobal Butts on 06-13-2022 Iron saturation [Mass fraction] 9.6 % 20-50 [facility] Transferrin [Mass/volume] in Serum or PlasmaOrdered By: Cristobal Butts on 06-13-2022 Transferrin [Mass/Vol] 89 mg/dL 203-362 [facility] Vancomycin [Mass/volume] in Serum or PlasmaOrdered By: Livia Lu on 06-13-2022 Vancomycin [Mass/Vol] 9.9 ug/mL 5.0-20.0 [facility] Comment on above: Last dose: - Vancomycin,Randomon 06-14-19 Vancomycin,Random 9.9 ug/mL Normal 5.0-20.0 [facility] Comment on above: Order Comment: Date of last dose?: 20220611 Time of last dose?: 1999 Result Comment: Last dose: - PERFORMED BY: [place] [address] PATHOLOGIST PRODUCT MARKETER SESAR VAUGHN M.D. Performed By: #### V ANCR ####[facility] [address] [place] [address] Vit. B12/Folate Profileon Cobalamin (Vitamin B12) [Mass/Vol] 353 pg/mL Normal 180-914 [facility] Comment on above: Performed By: #### R ENAL, CBC #### [facility] [address] [place] [address] Folate 14.5 ng/mL Normal >5.9 [facility] Comment on above: Result Comment: [place] reference range: >5.9 ng/ml The WHO technical consultation on folate and vitamin b12 deficiencies has determined that folate concentrations less than 4 ng/ml are considered deficient. PERFORMED BY: [place] [address] PATHOLOGIST PRODUCT MARKETER SESAR VAUGHN M.D. Performed By: #### R ENAL, CBC #### [facility] [address] [place], [place] [id number] [facility] Vitamin B12 ser/plasOrdered By: Cristobal Butts on 06-13-2022 Cobalamin (Vitamin B12) [Mass/Vol] 353 pg/mL 180-914 [facility] C-Reactive Proteinon 023 C-Reactive Protein 13.3 mg/dL High 0.0-0.5 [facility] Comment on above: Order Comment: LINE Result Comment: PERF ORMED BY: [facility] [address] [place] [address] PATHOLOGIST PRODUCT MARKETER SESAR VAUGHN M.D. Performed By: #### G LULS #### Point of Care testing , Complete Blood Count Auto Di ffon 06-12-2022 Basophils (Bld) [#/Vol] 0.1 10*3/uL Normal 0.0-0.2 [facility] Comment on above: Order Comment: LINE Performed By: #### C MP, ESR, MG, CBC ####[address] Basophils/100 WBC (Bld) 0.9 % Normal . [facility] Comment on above: Order Comment: LINE Performed By: #### C MP, ESR, MG, CBC ####[address] Eosinophils (Bld) [#/Vol] 0.2 10*3/uL Normal 0.0-0.45 [facility] Comment on above: Order Comment: LINE Performed By: #### C MP, ESR, MG, CBC ####[place] [id number] [facility] Eosinophils/100 WBC (Bld) 1.8 % Normal . [facility] Comment on above: Order Comment: LINE Performed By: #### C MP, ESR, MG, CBC ####[place] [id number] [facility] Erythrocyte distribution width (RBC) [Ratio] 16.6 % High 12.0-14.8 [facility] Comment on above: Order Comment: LINE Performed By: #### C MP, ESR, MG, CBC ####[place] [id number] [facility] Hematocrit (Bld) [Volume fraction] 22.5 % Low 38.8-50.0 [facility] Comment on above: Order Comment: LINE Performed By: #### C MP, ESR, MG, CBC ####[address] Hemoglobin (Bld) [Mass/Vol] 7.6 g/dL Low 13.0-17.0 [facility] Comment on above: Order Comment: LINE Performed By: #### C MP, ESR, MG, CBC ####[address] Lymphocytes (Bld) [#/Vol] 0.4 10*3/uL Low 1.00-4.8 [facility] Comment on above: Order Comment: LINE Performed By: #### C MP, ESR, MG, CBC ####[address] Lymphocytes/100 WBC (Bld) 4.3 % Normal . [facility] Comment on above: Order Comment: LINE Performed By: #### C MP, ESR, MG, CBC ####[address] MCH (RBC) [Entitic mass] 27.2 pg Low 27.5-35.2 [facility] Comment on above: Order Comment: LINE Performed By: #### C MP, ESR, MG, CBC ####[address] MCV (RBC) [Entitic vol] 80.9 fL Low 83.5-101 [facility] Comment on above: Order Comment: LINE Performed By: #### C MP, ESR, MG, CBC ####[address] Mean Corpuscular HGB Conc 33.7 g/dL Normal 32.5-35.6 [facility] Comment on above: Order Comment: LINE Performed By: #### C MP, ESR, MG, CBC ####[address] Monocytes (Bld) [#/Vol] 0.7 10*3/uL Normal 0.0-0.8 [facility] Comment on above: Order Comment: LINE Performed By: #### C MP, ESR, MG, CBC ####[address] Monocytes/100 WBC (Bld) 8.4 % Normal . [facility] Comment on above: Order Comment: LINE Performed By: #### C MP, ESR, MG, CBC ####[address] Neutrophils (Bld) [#/Vol] 7.5 10*3/uL Normal 1.8-7.7 [facility] Comment on above: Order Comment: LINE Performed By: #### C MP, ESR, MG, CBC ####[address] Neutrophils/100 WBC (Bld) 84.6 % Normal . [facility] Comment on above: Order Comment: LINE Performed By: #### C MP, ESR, MG, CBC ####[address] NRBC% 0.0 /100{WBC} Normal 0-0.5 [facility] Comment on above: Order Comment: LINE Performed By: #### C MP, ESR, MG, CBC ####[address] Platelet mean volume (Bld) [Entitic vol] 9.0 fL Normal 6.6-10.1 [facility] Comment on above: Order Comment: LINE Performed By: #### C MP, ESR, MG, CBC ####[address] Platelets (Bld) [#/Vol] 190 10*3/uL Signific ant change down 150-450 [facility] Comment on above: Order Comment: LINE Performed By: #### C MP, ESR, MG, CBC ####[address] RBC (Bld) [#/Vol] 2.78 10*6/uL Low 3.90-5.60 [facility] Comment on above: Order Comment: LINE Performed By: #### C MP, ESR, MG, CBC ####[address] WBC (Bld) [#/Vol] 8.9 10*3/uL Normal 4.1-10.5 [facility] Comment on above: Order Comment: LINE Performed By: #### C MP, ESR, MG, CBC ####[address] Comprehensive Metabolic Pane stewart 06-12-2022 Albumin [Mass/Vol] 2.5 g/dL Low 3.5-5.7 [facility] Comment on above: Order Comment: LINE Performed By: #### C MP, ESR, MG, CBC ####[address] Albumin/Globulin [Mass ratio] 0.7 {ratio} Normal [facility] Comment on above: Order Comment: LINE Performed By: #### C MP, ESR, MG, CBC ####[address] ALP [Catalytic activity/Vol] 173 U/L High 34-104 [facility] Comment on above: Order Comment: LINE Performed By: #### C MP, ESR, MG, CBC ####[place] [id number] [facility] ALT [Catalytic activity/Vol] 13 U/L Normal 7-52 [facility] Comment on above: Order Comment: LINE Performed By: #### C MP, ESR, MG, CBC ####[place] [id number] [facility] Anion gap [Moles/Vol] 16.6 mmol/L High 6.0-15.0 [facility] Comment on above: Order Comment: LINE Performed By: #### C MP, ESR, MG, CBC ####[address] AST [Catalytic activity/Vol] 24 U/L Normal 13-39 [facility] Comment on above: Order Comment: LINE Performed By: #### C MP, ESR, MG, CBC ####[place] [id number] [facility] Bilirubin [Mass/Vol] 0.8 mg/dL Normal 0.3-1.0 [facility] Comment on above: Order Comment: LINE Performed By: #### C MP, ESR, MG, CBC ####[place] [id number] [facility] Calcium [Mass/Vol] 8.0 mg/dL Low 8.6-10.3 [facility] Comment on above: Order Comment: LINE Performed By: #### C MP, ESR, MG, CBC ####[place] [id number] [facility] Chloride [Moles/Vol] 105 mmol/L Normal 98-107 [facility] Comment on above: Order Comment: LINE Performed By: #### C MP, ESR, MG, CBC ####[place] [id number] [facility] CO2 [Moles/Vol] 17.7 mmol/L Low 21.0-31.0 [facility] Comment on above: Order Comment: LINE Performed By: #### C MP, ESR, MG, CBC ####[place] [id number] [facility] Creatinine [Mass/Vol] 5.14 mg/dL High 0.70-1.30 [facility] Comment on above: Order Comment: LINE Performed By: #### C MP, ESR, MG, CBC ####[place] [id number] [facility] Creatinine Clr Calc Pharmacy 19.47 Normal [facility] Comment on above: Order Comment: LINE Performed By: #### C MP, ESR, MG, CBC ####[place] [id number] [facility] GFR/1.73 sq M.predicted MDRD (S/P/Bld) [Vol rate/Area] 12.311 mL/min/{1.73_m2} Normal [facility] Comment on above: Order Comment: LINE Performed By: #### C MP, ESR, MG, CBC ####[place] [id number] [facility] Globulin (S) [Mass/Vol] 3.8 g/dL Normal [facility] Comment on above: Order Comment: LINE Performed By: #### C MP, ESR, MG, CBC ####[place] [id number] [facility] Glucose [Mass/Vol] 97 mg/dL Normal 74-109 [facility] Comment on above: Order Comment: LINE Result Comment: [facility] Glucose Reference Range is dependent on time and content of last meal. Glucose of more than 200 mg/dL in a nonstressed, ambulatory subject supports the diagnosis of Diabetes Mellitus. ADA recommended reference range Performed By: #### C MP, ESR, MG, CBC ####[address] Potassium [Moles/Vol] 4.3 mmol/L Normal 3.5-5.1 [facility] Comment on above: Order Comment: LINE Performed By: #### C MP, ESR, MG, CBC ####[address] Protein [Mass/Vol] 6.3 g/dL Low 6.4-8.9 [facility] Comment on above: Order Comment: LINE Performed By: #### C MP, ESR, MG, CBC ####[place] [id number] [facility] Sodium [Moles/Vol] 135 mmol/L Low 136-145 [facility] Comment on above: Order Comment: LINE Performed By: #### C MP, ESR, MG, CBC ####[place] [id number] [facility] Urea nitrogen [Mass/Vol] 111 mg/dL High 7-25 [facility] Comment on above: Order Comment: LINE Performed By: #### C MP, ESR, MG, CBC ####[address] [place] [address] [facility] Erythrocyte Sedimentation Ra cindy 06-12-2022 ESR (Bld) [Velocity] 81 mm/h High 0 [facility] Comment on above: Order Comment: LINE Result Comment: PERF ORMED BY: [facility] [address] [place] [address] PATHOLOGIST PRODUCT MARKETER SESAR VAUGHN M.D. Performed By: #### C MP, ESR, MG, CBC ####[facility] [id number] [place], [place] [id number] [facility] Erythrocyte sedimentation ra te by Photometric methodOrdered By: Caleb Farrar on 06-12-2022 ESR Photometric method (Bld) [Velocity] 81 mm/hr 0 [facility] Glucose Poct Glucometerson 0 06-12-2022 Commemt1 Glu2: Cleaned Meter Normal [facility] Comment on above: Result Comment: PERF ORMED BY: [place] [address] PATHOLOGIST PRODUCT MARKETER SESAR VAGUHN M.D. Performed By: #### G LULS ####Point of Care testing, Glucose [Mass/Vol] 163 mg/dL Normal [facility] Comment on above: Result Comment: [place] [facility] Glucose Reference Range is dependent on time and content of last meal. Glucose of more than 200 mg/dL in a nonstressed, ambulatory subject supports the diagnosis of Diabetes Mellitus. Performed By: #### G LULS ####Point of Care testing, Glucose [Mass/Vol] 142 mg/dL Normal [facility] Comment on above: Result Comment: [place] [facility] Glucose Reference Range is dependent on time and content of last meal. Glucose of more than 200 mg/dL in a nonstressed, ambulatory subject supports the diagnosis of Diabetes Mellitus. PERFORMED BY: [place] [address] PATHOLOGIST PRODUCT MARKETER SESAR VAUGHN M.D. Performed By: #### R ENAL, CBC #### [facility] [address] [place], [place] [id number] [facility] Glucose [Mass/Vol] 183 mg/dL Normal [facility] Comment on above: Result Comment: [place] [facility] Glucose Reference Range is dependent on time and content of last meal. Glucose of more than 200 mg/dL in a nonstressed, ambulatory subject supports the diagnosis of Diabetes Mellitus. PERFORMED BY: [place] [address] PATHOLOGIST PRODUCT MARKETER SESAR VAUGHN M.D. Performed By: #### R ENAL, CBC #### [address] Glucose [Mass/Vol] 118 mg/dL Normal [facility] Comment on above: Result Comment: [place] [facility] Glucose Reference Range is dependent on time and content of last meal. Glucose of more than 200 mg/dL in a nonstressed, ambulatory subject supports the diagnosis of Diabetes Mellitus. PERFORMED BY: [place] [address] PATHOLOGIST PRODUCT MARKETER SESAR VAUGHN M.D. Performed By: #### G LULS #### Point of Care testing , Commemt1 Glu2: Cleaned Meter Normal [facility] Comment on above: Result Comment: PERF ORMED BY: [place] [address] PATHOLOGIST PRODUCT MARKETER SESAR VAUGHN M.D. Performed By: #### R ENAL, CBC #### [address] Glucose [Mass/Vol] 218 mg/dL Normal [facility] Comment on above: Result Comment: [place] Glucose Reference Range is dependent on time and content of last meal. Glucose of more than 200 mg/dL in a nonstressed, ambulatory subject supports the diagnosis of Diabetes Mellitus. Performed By: #### R ENAL, CBC #### [address] Magnesiumon 06-12-2022 Magnesium [Mass/Vol] 2.0 mg/dL Normal 1.9-2.7 [facility] Comment on above: Order Comment: LINE Result Comment: PERF ORMED BY: [facility] [address] [place] [id number] PATHOLOGIST PRODUCT MARKETER SESAR VAUGHN M.D. Performed By: #### C MP, ESR, MG, CBC ####[facility] [id number] [place] [address] [facility] Magnesium [Mass/volume] in S yulissa or PlasmaOrdered By: Caleb Farrar on 06-12-2022 Magnesium [Mass/Vol] 2.0 mg/dL 1.9-2.7 [facility] Alanine aminotransferase [En zymatic activity/volume] in Serum or PlasmaOrdered By: Livia Lu on 06-11-2022 ALT [Catalytic activity/Vol] 18 U/L 7-52 [facility] Albumin [Mass/volume] in Ser um or Plasma by Bromocresol green (BCG) dye binding methoOrdered By: Livia Lu on 06-11-2022 Albumin BCG dye [Mass/Vol] 2.8 g/dL 3.5-5.7 [facility] Alkaline phosphatase [Enzyma tic activity/volume] in Serum or PlasmaOrdered By: Livia Lu on 06-11-2022 ALP [Catalytic activity/Vol] 200 U/L 34-104 [facility] Aspartate aminotransferase [ Enzymatic activity/volume] in Serum or PlasmaOrdered By: Livia Lu on 06-11-2022 AST [Catalytic activity/Vol] 31 U/L 13-39 [facility] Automated erythrocytes count in urine sediment (number/area)Ordered By: Livia Lu on 06-11-2022 RBC Auto (Urine sed) [#/Area] 3-4 [HPF] 0-4 [facility] Automated leukocytes count i n urine sediment (number/area)Ordered By: Livia Lu on 06-11-2022 WBC Auto (Urine sed) [#/Area] 3-4 [HPF] 0-4 [facility] Bacterial blood cultureOrder ed By: Livia Lu on 06-11-2022 Bacteria identified Cx Nom (Bld) NO GROWTH 5 DAYS [facility] Basophils Auto (Bld) [#/Vol] Ordered By: Livia Lu on 06-11-2022 Basophils (Bld) [#/Vol] 0.0 10*3/uL 0.0-0.2 [facility] Basophils/100 WBC Auto (Bld) Ordered By: Livia Lu on 06-11-2022 Basophils/100 WBC (Bld) 0.5 % . [facility] Bilirubin Test strip Ql (U)O rdered By: Livia Lu on 06-11-2022 Bilirubin Ql (U) Negative Negative [facility] Bilirubin.total [Mass/volume ] in Serum or PlasmaOrdered By: Livia Lu on 06-11-2022 Bilirubin [Mass/Vol] 0.6 mg/dL 0.3-1.0 [facility] Blood Cultureon 06-11-2022 Bacteria identified Cx Nom (Bld) NO GROWTH 5 DAYS PERFORMED BY: [place] [address] PATHOLOGIST PRODUCT MARKETER SESAR VAUGHN M.D. Normal [facility] Comment on above: Performed By: #### C BCNO, BMP #### [address] COVID CepheidOrdered By: Sandra lester Lu on 06-11-2022 SARS-CoV-2 (COVID-19) Ab IA Ql Negative Negative [facility] Comment on above: This is a duplicate Cepheid Xpert Xpress CoV-2/Flu/RSV Plus RNA by RT-PCR result to be used for statistical tracking purpose only. SARS-CoV-2 (COVID-19) RNA HUMBLE+probe Ql (Unsp spec) [facility] COVID-19 / Flu A/B / RSV [...] or Cepheid Disclaimer revoked sooner. PERFORMED BY: [facility] [address] [place] [address] PATHOLOGIST PRODUCT MARKETER SESAR VAUGHN M.D. Normal [facility] Comment on above: Performed By: #### R LYNETTE, CBC #### [facility] [address] Calcium [Mass/volume] in Ser um or PlasmaOrdered By: Livia Lu on 06-11-2022 Calcium [Mass/Vol] 8.4 mg/dL 8.6-10.3 [facility] Carbon dioxide, total [Moles /volume] in Serum or PlasmaOrdered By: Livia Lu on 06-11-2022 CO2 [Moles/Vol] 18.3 mmol/L 21.0-31.0 [facility] Cepheid COVID PCR Negativeon 06-11-2022 SARS-CoV-2 (COVID-19) RNA HUMBLE+probe Ql (Unsp spec) Negative Normal Negative [facility] Comment on above: Result Comment: This is a duplicate Cepheid Xpert Xpress CoV-2/Flu/RSV Plus RNA by RT-PCR result to be used for statistical tracking purpose only. PERFORMED BY: [place] [address] PATHOLOGIST PRODUCT MARKETER SESAR VAUGHN M.D. Performed By: #### R ENAL, CBC #### [address] Chloride [Moles/volume] in S yulissa or PlasmaOrdered By: Livia Lu on 06-11-2022 Chloride [Moles/Vol] 106 mmol/L 98-107 [facility] Color Auto (U)Ordered By: Courtney Lu on 06-11-2022 Color (U) Yellow Yellow [facility] Complete Blood Count Auto Di ffon 06-11-2022 Basophils (Bld) [#/Vol] 0.0 10*3/uL Normal 0.0-0.2 [facility] Comment on above: Result Comment: PERF ORMED BY: [facility] [address] [place] [address] PATHOLOGIST PRODUCT MARKETER SESAR VAUGHN M.D. Performed By: #### G LULS #### Point of Care testing , Basophils/100 WBC (Bld) 0.5 % Normal . [facility] Comment on above: Performed By: #### G LULS #### Point of Care testing , Eosinophils (Bld) [#/Vol] 0.2 10*3/uL Normal 0.0-0.45 [facility] Comment on above: Performed By: #### G LULS #### Point of Care testing , Eosinophils/100 WBC (Bld) 2.0 % Normal . [facility] Comment on above: Performed By: #### G HOLGERLS #### Point of Care testing , Erythrocyte distribution width (RBC) [Ratio] 16.4 % High 12.0-14.8 [facility] Comment on above: Performed By: #### G HOLGERLS #### Point of Care testing , Hematocrit (Bld) [Volume fraction] 23.3 % Low 38.8-50.0 [facility] Comment on above: Performed By: #### G HOLGERLS #### Point of Care testing , Hemoglobin (Bld) [Mass/Vol] 7.7 g/dL Low 13.0-17.0 [facility] Comment on above: Performed By: #### G HOLGERLS #### Point of Care testing , Lymphocytes (Bld) [#/Vol] 0.3 10*3/uL Low 1.00-4.8 [facility] Comment on above: Performed By: #### G HOLGERLS #### Point of Care testing , Lymphocytes/100 WBC (Bld) 3.2 % Normal . [facility] Comment on above: Performed By: #### G HOLGERLS #### Point of Care testing , MCH (RBC) [Entitic mass] 27.1 pg Low 27.5-35.2 [facility] Comment on above: Performed By: #### G HOLGERLS #### Point of Care testing , MCV (RBC) [Entitic vol] 81.5 fL Low 83.5-101 [facility] Comment on above: Performed By: #### G HOLGERLS #### Point of Care testing , Mean Corpuscular HGB Conc 33.2 g/dL Normal 32.5-35.6 [facility] Comment on above: Performed By: #### G HOLGERLS #### Point of Care testing , Monocytes (Bld) [#/Vol] 0.7 10*3/uL Normal 0.0-0.8 [facility] Comment on above: Performed By: #### G HOLGERLS #### Point of Care testing , Monocytes/100 WBC (Bld) 17.28 % Normal 0.00-20.00 [facility] Comment on above: Performed By: #### G BERT #### Point of Care testing , Monocytes/100 WBC (Bld) 7.2 % Normal . [facility] Comment on above: Performed By: #### G HOLGERLS #### Point of Care testing , Neutrophils (Bld) [#/Vol] 8.9 10*3/uL High 1.8-7.7 [facility] Comment on above: Performed By: #### G HOLGERLS #### Point of Care testing , Neutrophils/100 WBC (Bld) 87.1 % Normal . [facility] Comment on above: Performed By: #### G BERT #### Point of Care testing , NRBC% 0.0 /100{WBC} Normal 0-0.5 [facility] Comment on above: Performed By: #### G BERT #### Point of Care testing , Platelet mean volume (Bld) [Entitic vol] 8.8 fL Normal 6.6-10.1 [facility] Comment on above: Performed By: #### G BERT #### Point of Care testing , Platelets (Bld) [#/Vol] 244 10*3/uL Normal 150-450 [facility] Comment on above: Performed By: #### G BERT #### Point of Care testing , RBC (Bld) [#/Vol] 2.86 10*6/uL Low 3.90-5.60 [facility] Comment on above: Performed By: #### G BERT #### Point of Care testing , WBC (Bld) [#/Vol] 10.2 10*3/uL Normal 4.1-10.5 [facility] Comment on above: Performed By: #### G BERT #### Point of Care testing , Comprehensive Metabolic Pane stewart 06-11-2022 Albumin [Mass/Vol] 2.8 g/dL Low 3.5-5.7 [facility] Comment on above: Performed By: #### C RP #### [address] Albumin/Globulin [Mass ratio] 0.7 {ratio} Normal [facility] Comment on above: Performed By: #### C RP #### [facility] [address] ALP [Catalytic activity/Vol] 200 U/L High 34-104 [facility] Comment on above: Performed By: #### C RP #### [facility] [address] ALT [Catalytic activity/Vol] 18 U/L Normal 7-52 [facility] Comment on above: Performed By: #### C RP #### [facility] [address] Anion gap [Moles/Vol] 17.1 mmol/L High 6.0-15.0 [facility] Comment on above: Performed By: #### C RP #### [facility] [address] AST [Catalytic activity/Vol] 31 U/L Normal 13-39 [facility] Comment on above: Performed By: #### C RP #### [address] Bilirubin [Mass/Vol] 0.6 mg/dL Normal 0.3-1.0 [facility] Comment on above: Performed By: #### C RP #### [address] Calcium [Mass/Vol] 8.4 mg/dL Low 8.6-10.3 [facility] Comment on above: Performed By: #### C RP #### [facility] [address] Chloride [Moles/Vol] 106 mmol/L Normal 98-107 [facility] Comment on above: Performed By: #### C RP #### [address] CO2 [Moles/Vol] 18.3 mmol/L Low 21.0-31.0 [facility] Comment on above: Performed By: #### C RP #### [address] [address] [place] Creatinine [Mass/Vol] 5.45 mg/dL High 0.70-1.30 [facility] Comment on above: Performed By: #### C RP #### [address] Creatinine Clr Calc Pharmacy 18.36 Normal [facility] Comment on above: Result Comment: PERF ORMED BY: [place] [address] PATHOLOGIST PRODUCT MARKETER SESAR VAUGHN M.D. Performed By: #### C RP #### [address] GFR/1.73 sq M.predicted MDRD (S/P/Bld) [Vol rate/Area] 11.475 mL/min/{1.73_m2} Normal [facility] Comment on above: Performed By: #### C RP #### [address] Globulin (S) [Mass/Vol] 4.1 g/dL Normal [facility] Comment on above: Performed By: #### C RP #### [address] Glucose [Mass/Vol] 62 mg/dL Low 74-109 [facility] Comment on above: Result Comment: [facility] Glucose Reference Range is dependent on time and content of last meal. Glucose of more than 200 mg/dL in a nonstressed, ambulatory subject supports the diagnosis of Diabetes Mellitus. ADA recommended reference range Performed By: #### C RP #### [address] Potassium [Moles/Vol] 4.4 mmol/L Normal 3.5-5.1 [facility] Comment on above: Performed By: #### C RP #### [address] Protein [Mass/Vol] 6.9 g/dL Normal 6.4-8.9 [facility] Comment on above: Performed By: #### C RP #### [facility] [address] Sodium [Moles/Vol] 137 mmol/L Normal 136-145 [facility] Comment on above: Performed By: #### C RP #### [facility] [address] Urea nitrogen [Mass/Vol] 111 mg/dL High 7-25 [facility] Comment on above: Performed By: #### C RP #### [facility] [address] Creatinine [Mass/volume] in Serum or PlasmaOrdered By: Livia Lu on 06-11-2022 Creatinine [Mass/Vol] 5.45 mg/dL 0.70-1.30 [facility] Dipstick and Microscopicon 0 06-11-2022 Appearance (U) Clear Normal Clear [facility] Comment on above: Order Comment: Name Collection Type:: Clean-Voided Midstream Performed By: #### R ENAL, CBC #### [place] [address] [place] Bacteria,Urine None Seen Normal None Seen [facility] Comment on above: Order Comment: Name Collection Type:: Clean-Voided Midstream Performed By: #### R ENAL, CBC #### [place] [address] [place] Bilirubin,Urine Negative Normal Negative [facility] Comment on above: Order Comment: Name Collection Type:: Clean-Voided Midstream Performed By: #### R ENAL, CBC #### [place] [address] [place] Color (U) Yellow Normal Yellow [facility] Comment on above: Order Comment: Name Collection Type:: Clean-Voided Midstream Performed By: #### R ENAL, CBC #### [facility] [address] [place] [address] [place] Glucose Ql (U) Normal Normal Normal [facility] Comment on above: Order Comment: Name Collection Type:: Clean-Voided Midstream Performed By: #### R ENAL, CBC #### [address] [address] [place] Hyaline Casts,Urine 0-8 Normal 0-8 [facility] Comment on above: Order Comment: Name Collection Type:: Clean-Voided Midstream Result Comment: PERF ORMED BY: [place] [address] PATHOLOGIST PRODUCT MARKETER SESAR VAUGHN M.D. Performed By: #### R ENAL, CBC #### [address] Ketones Ql (U) Negative Normal Negative [facility] Comment on above: Order Comment: Name Collection Type:: Clean-Voided Midstream Performed By: #### R ENAL, CBC #### [address] Leukocyte esterase Test strip Ql (U) Negative Normal Negative [facility] Comment on above: Order Comment: Name Collection Type:: Clean-Voided Midstream Performed By: #### R ENAL, CBC #### [address] Nitrite,Urine Negative Normal Negative [facility] Comment on above: Order Comment: Name Collection Type:: Clean-Voided Midstream Performed By: #### R ENAL, CBC #### [address] Occult Blood,Urine Negative Normal Negative [facility] Comment on above: Order Comment: Name Collection Type:: Clean-Voided Midstream Result Comment: PERF ORMED BY: [place] [address] PATHOLOGIST PRODUCT MARKETER SESAR VAUGHN M.D. Performed By: #### R ENAL, CBC #### [facility] [address] [place] [address] [place] pH (U) 5.5 [pH] Normal 5.0-9.0 [facility] Comment on above: Order Comment: Name Collection Type:: Clean-Voided Midstream Performed By: #### R ENAL, CBC #### [place] [address] [place] Protein (U) [Mass/Vol] 300 mg/dL High Negative [facility] Comment on above: Order Comment: Name Collection Type:: Clean-Voided Midstream Performed By: #### R ENAL, CBC #### [address] RBC,Urine 3-4 Normal 0-4 [facility] Comment on above: Order Comment: Name Collection Type:: Clean-Voided Midstream Performed By: #### R ENAL, CBC #### [address] Specificy [place],Urine 1.014 Normal 1.001-1.030 [facility] Comment on above: Order Comment: Name Collection Type:: Clean-Voided Midstream Performed By: #### R ENAL, CBC #### [address] Squamous Epithelial Cell,Urine 1-2 Normal 0-2 [facility] Comment on above: Order Comment: Name Collection Type:: Clean-Voided Midstream Performed By: #### R ENAL, CBC #### [address] Urobilinogen,Urine Normal Normal Normal [facility] Comment on above: Order Comment: Name Collection Type:: Clean-Voided Midstream Performed By: #### R ENAL, CBC #### [place] [address] [place] WBC,Urine 3-4 Normal 0-4 [facility] Comment on above: Order Comment: Name Collection Type:: Clean-Voided Midstream Performed By: #### R ENAL, CBC #### [facility] [address] [place] [address] [place] Eosinophils Auto (Bld) [#/Vo l]Ordered By: Livia Lu on 06-11-2022 Eosinophils (Bld) [#/Vol] 0.2 10*3/uL 0.0-0.45 [facility] Eosinophils/100 WBC Auto (Bl d)Ordered By: Livia Lu on 06-11-2022 Eosinophils/100 WBC (Bld) 2.0 % . [facility] Erythrocyte distribution wid th Auto (RBC) [Ratio]Ordered By: Livia Lu on 06-11-2022 Erythrocyte distribution width (RBC) [Ratio] 16.4 % 12.0-14.8 [facility] Globulin Calc (S) [Mass/Vol] Ordered By: Livia Lu on 06-11-2022 Globulin (S) [Mass/Vol] 4.1 g/dL [facility] Glucose Glucometer (BldC) [M ass/Vol]Ordered By: Livia Lu on 06-11-2022 Glucose [Mass/Vol] 83 mg/dL [facility] Comment on above: Random Glucose Refer ence Range is dependent on time and content of last meal. Glucose of more than 200 mg/dL in a nonstressed, ambulatory subject supports the diagnosis of Diabetes Mellitus. Glucose Poct Glucometerson 0 06-11-2022 Commemt1 Glu2: Cleaned Meter Normal [facility] Comment on above: Result Comment: PERF ORMED BY: [facility] [address] [place] [address] PATHOLOGIST PRODUCT MARKETER SESAR VAUGHN M.D. Performed By: #### R ENAL, CBC #### [facility] [address] [place] [address] Glucose [Mass/Vol] 83 mg/dL Normal [facility] Comment on above: Result Comment: [place] Glucose Reference Range is dependent on time and content of last meal. Glucose of more than 200 mg/dL in a nonstressed, ambulatory subject supports the diagnosis of Diabetes Mellitus. Performed By: #### R ENAL, CBC #### [facility] [address] [place] [address] [place] Glucose [Mass/volume] in Ser um or PlasmaOrdered By: Livia Lu on 06-11-2022 Glucose [Mass/Vol] 62 mg/dL 74-109 [facility] Comment on above: ADA recommended refe rence rangeRandom Glucose Reference Range is dependent on time and content of last meal. Glucose of more than 200 mg/dL in a nonstressed, ambulatory subject supports the diagnosis of Diabetes Mellitus. Hematocrit Auto (Bld) [Volum e fraction]Ordered By: Livia Lu on 06-11-2022 Hematocrit (Bld) [Volume fraction] 23.3 % 38.8-50.0 [facility] Hemoglobin [Mass/volume] in BloodOrdered By: Livia Lu on 06-11-2022 Hemoglobin (Bld) [Mass/Vol] 7.7 g/dL 13.0-17.0 [facility] Ketones Auto test strip (U) [Mass/Vol]Ordered By: Livia Lu on 06-11-2022 Ketones (U) [Mass/Vol] Negative Negative [facility] - Chemistry and C hemistry - challengeOrdered By: Livia Lu on 06-11-2022 GFR/1.73 sq M.predicted MDRD (S/P/Bld) [Vol rate/Area] 11.475 mL/min/{1.73_m2} [facility] - UrinalysisOrder ed By: Livia Lu on 06-11-2022 Hyaline casts LM Ql (Urine sed) 0-8 [LPF] 0-8 [facility] Lactate [Moles/volume] in Se rum or PlasmaOrdered By: Livia Lu on 06-11-2022 Lactate [Moles/Vol] 1.1 mmol/L 0.5-2.2 [facility] Lactic Acidon 06-11-2022 Lactate [Moles/Vol] 1.1 mmol/L Normal 0.5-2.2 [facility] Comment on above: Result Comment: PERF ORMED BY: [facility] [address] [place] [address] PATHOLOGIST PRODUCT MARKETER SESAR VAUGHN M.D. Performed By: #### G LULS #### Point of Care testing , LeukoReduced RBCon LeukoReduced RBC TRANSFUSED 06/13/22 1200 Normal [facility] Leukocytes [#/volume] correc annalisa for nucleated erythrocytes in Blood by Automated counOrdered By: Livia Lu on 06-11-2022 WBC corrected for nucl RBC Auto (Bld) [#/Vol] 10.2 10*3/uL 4.1-10.5 [facility] Lymphocytes Auto (Bld) [#/Vo l]Ordered By: Livia Lu on 06-11-2022 Lymphocytes (Bld) [#/Vol] 0.3 10*3/uL 1.00-4.8 [facility] Lymphocytes/100 WBC Auto (Bl d)Ordered By: Livia Lu on 06-11-2022 Lymphocytes/100 WBC (Bld) 3.2 % . [facility] MCH Auto (RBC) [Entitic mass ]Ordered By: Livia Lu on 06-11-2022 MCH (RBC) [Entitic mass] 27.1 pg 27.5-35.2 [facility] MCHC Auto (RBC) [Mass/Vol]Or dered By: Livia Lu on 06-11-2022 MCHC (RBC) [Mass/Vol] 33.2 g/dL 32.5-35.6 [facility] MCV Auto (RBC) [Entitic vol] Ordered By: Livia Lu on 06-11-2022 MCV (RBC) [Entitic vol] 81.5 fL 83.5-101 [facility] Monocyte distribution width [Entitic volume] in Blood by AutomatedOrdered By: Livia Lu on 06-11-2022 Monocyte distribution width Auto (Bld) [Entitic vol] 17.28 % 0.00-20.00 [facility] Monocytes Auto (Bld) [#/Vol] Ordered By: Livia Lu on 06-11-2022 Monocytes (Bld) [#/Vol] 0.7 10*3/uL 0.0-0.8 [facility] Monocytes/100 WBC Auto (Bld) Ordered By: Livia Lu on 06-11-2022 Monocytes/100 WBC (Bld) 7.2 % . [facility] Neutrophils Auto (Bld) [#/Vo l]Ordered By: Livia Lu on 06-11-2022 Neutrophils (Bld) [#/Vol] 8.9 10*3/uL 1.8-7.7 [facility] Neutrophils/100 WBC Auto (Bl d)Ordered By: Livia Lu on 06-11-2022 Neutrophils/100 WBC (Bld) 87.1 % . [facility] Nitrite Test strip Ql (U)Ord ered By: Livia Lu on 06-11-2022 Nitrite Ql (U) Negative Negative [facility] No Panel InformationOrdered By: Livia Lu on 06-11-2022 Bedside Glucose Comment Glu2: cleaned meter [facility] Creatinine Clearance (Chem 18.36 [facility] Nucleated erythrocytes [Pres ence] in Blood by Automated countOrdered By: Livia Lu on 06-11-2022 Nucleated RBC Auto Ql (Bld) 0.0 /100{WBC} 0-0.5 [facility] Platelet mean volume Auto (B ld) [Entitic vol]Ordered By: Livia Lu on 06-11-2022 Platelet mean volume (Bld) [Entitic vol] 8.8 fL 6.6-10.1 [facility] Platelets Auto (Bld) [#/Vol] Ordered By: Livia Lu on 06-11-2022 Platelets (Bld) [#/Vol] 244 10*3/uL 150-450 [facility] Potassium [Moles/volume] in Serum or PlasmaOrdered By: Livia Lu on 06-11-2022 Potassium [Moles/Vol] 4.4 mmol/L 3.5-5.1 [facility] Protein Auto test strip (U) [Mass/Vol]Ordered By: Livia Lu on 06-11-2022 Protein (U) [Mass/Vol] 300 mg/dL Negative [facility] Protein [Mass/volume] in Ser um or PlasmaOrdered By: Livia Lu on 06-11-2022 Protein [Mass/Vol] 6.9 g/dL 6.4-8.9 [facility] RBC Auto (Bld) [#/Vol]Ordere d By: Livia Lu on 06-11-2022 RBC (Bld) [#/Vol] 2.86 10*6/uL 3.90-5.60 [facility] Serum or plasma albumin/glob ulin mass ratioOrdered By: Livia Lu on 06-11-2022 Albumin/Globulin [Mass ratio] 0.7 {ratio} [facility] Serum or plasma anion gap de terminationOrdered By: Livia Lu on 06-11-2022 Anion gap [Moles/Vol] 17.1 mmol/L 6.0-15.0 [facility] Sodium [Moles/volume] in Ser um or PlasmaOrdered By: Livia Lu on 06-11-2022 Sodium [Moles/Vol] 137 mmol/L 136-145 [facility] Specific gravity Auto test s trip (U) [Rel density]Ordered By: Livia Lu on 06-11-2022 Specific gravity (U) [Rel density] 1.014 1.001-1.030 [facility] Squamous epithelial cells de tection in urine sediment by light microscopyOrdered By: Livia Lu on 06-11-2022 Epithelial cells.squamous LM Ql (Urine sed) 1-2 [HPF] 0-2 [facility] Type and Screenon 06-11-2022 ABO and Rh group Nom (Bld) Blood group A Rh(D) positive Normal [facility] Comment on above: Order Comment: Trans fuse now? Y Number of units to transfuse now? 1 Transfuse now? Y Number of units to transfuse now? 1 Urea nitrogen [Mass/volume] in Serum or PlasmaOrdered By: Livia Lu on 06-11-2022 Urea nitrogen [Mass/Vol] 111 mg/dL 7-25 [facility] Urine bacteria detection by automated methodOrdered By: Livia Lu on 06-11-2022 Bacteria Auto Ql (U) None seen None Seen [facility] Urine clarity by refractomet ry automatedOrdered By: Livia Lu on 06-11-2022 Clarity Refractometry automated (U) Clear Clear [facility] Urine glucose measurement by automated test strip (mass/volume)Ordered By: Livia Lu on 06-11-2022 Glucose Auto test strip (U) [Mass/Vol] Normal mg/dL Normal [facility] Urine hemoglobin detection b y automated test stripOrdered By: Livia Lu on 03-23-2023 Hemoglobin Auto test strip Ql (U) Negative Negative [facility] Urine leukocyte esterase det ection by automated test stripOrdered By: Livia Lu on 06-11-2022 Leukocyte esterase Auto test strip Ql (U) Negative Negative [facility] Urobilinogen Auto test strip (U) [Mass/Vol]Ordered By: Livia Lu on 06-11-2022 Urobilinogen (U) [Mass/Vol] Normal mg/dL Normal [facility] WBC Auto (Bld) [#/Vol]Ordere d By: Livia Lu on 06-11-2022 WBC (Bld) [#/Vol] 10.2 10*3/uL 4.1-10.5 [facility] XR foot RT min 3V*on 023 XR foot RT min 3V* [facility] [place] [address] XRay Report Signed Patient: Gopal Yates Jr MR#: [id number] : 1965 Acct:[id number] Age/Sex: 56 / M ADM Date: 06/11/22 Loc: ER Room: Type: [facility] ER Attending Dr: Copies to: Livia Lu APRN Ordering Provider: Livia Lu APRN Date of Service: 06/11/22 XR/XR chest 1V portable: Fever ([id number]) XR/XR foot RT min 3V*: Fever CLINICAL [...] OF THE THIRD TOE. Impression dictated by: Tnaa Perry M.D.06/11/2022 5:14 PM Dictation Location: [place] [address] Transcribed By: [facility] 06/11/221713 Dictated By: Tana Perry MD 06/11/22 170 Signed By: 06/11/221713 [facility] pH Auto test strip (U)Ordere d By: Livia Lu on 06-11-2022 pH (U) 5.5 [pH] 5.0-9.0 [facility] Aerobic cultureOrdered By: Hortencia Griggs on 06-10-2022 Bacteria identified Aer cx Nom (Unsp spec) 2 Days [facility] Superficial Wound Cultureon 06-10-2022 Superficial Wound Culture Light Normal Skin Efren 2 Days PERFORMED BY: [place] [address] PATHOLOGIST PRODUCT MARKETER SESAR VAUGHN M.D. [facility] Comment on above: Performed By: #### C BCNO, BMP #### [address] C reactive protein [Mass/vol ume] in Serum or PlasmaOrdered By: Ashutosh Thomas on 06-05-2022 CRP [Mass/Vol] 11.7 mg/dL 0.0-0.4 [facility] C-Reactive Proteinon 023 C-Reactive Protein 11.7 mg/dL High 0.0-0.4 [facility] Comment on above: Result Comment: PERF ORMED BY: [place] [address] PATHOLOGIST PRODUCT MARKETER SESAR VAUGHN M.D. Performed By: #### C RP #### [facility] [address] [place] [address] Hepatitis B Core Antibodyon 06-05-2022 Hepatitis B Core Antibody Negative Normal Negative [facility] Comment on above: Result Comment: Perf ormed at: CB - [facility] [place] [address] Car Manager: Rob Loza PhD, Phone: [phone] Performed By: #### R LYNETTE, CBC #### [address] Hepatitis B Surface Antibody on 06-05-2022 Hepatitis B Surface Antibody Non-Reactive Normal . [facility] Comment on above: Result Comment: Non Reactive: Inconsistent with immunity, less than 10 mIU/mL Reactive: Consistent with immunity, greater than 9.9 mIU/mL Performed By: #### R ENAL, CBC #### [address] Hepatitis B Surface Antigeno n 06-05-2022 HBsAg Screen Negative Normal Negative [facility] Comment on above: Result Comment: PERF ORMED BY: [place] [address] PATHOLOGIST PRODUCT MARKETER SESAR VAUGHN M.D. Performed By: #### R ENAL, CBC #### [facility] [address] [place] [address] Hepatitis B virus surface Ag [Presence] in Serum or Plasma by ImmunoassayOrdered By: Yvonne Barboza on 06-05-2022 HBV surface Ag IA Ql Negative Negative [facility] No Panel InformationOrdered By: Yvonne Barboza on 06-05-2022 Hepatitis B Core Total Antibody Negative Negative [facility] Comment on above: Performed at: CB - [facility] [place] [id number] Director: Rob Loza PhD, Phone: [phone] Serum hepatitis B virus surf carlee antibody detectionOrdered By: Yvonne Barboza on 06-05-2022 HBV surface Ab Ql (S) Non-Reactive . [facility] Comment on above: Non Reactive: Incons istent with immunity, less than 10 mIU/mL Reactive: Consistent with immunity, greater than 9.9 mIU/mL Arterial blood standard base excess determination by calculationOrdered By: Sohan Kellogg on 05-28-2022 Base excess standard Calc (BldA) [Moles/Vol] -5 mmol/L -2-3 [facility] Basic Metabolic Panelon Anion gap [Moles/Vol] 14.8 mmol/L Normal 6.0-15.0 [facility] Comment on above: Performed By: #### C BCNO, BMP #### [facility] [address] [place] [address] [place] Calcium [Mass/Vol] 8.3 mg/dL Low 8.6-10.3 [facility] Comment on above: Performed By: #### C BCNO, BMP #### [facility] [address] [place] [address] [place] Chloride [Moles/Vol] 107 mmol/L Normal 98-107 [facility] Comment on above: Performed By: #### C BCNO, BMP #### [facility] [address] [place] [id number] [place] CO2 [Moles/Vol] 20.2 mmol/L Low 21.0-31.0 [facility] Comment on above: Performed By: #### C BCNO, BMP #### [facility] [address] [place] [id number] [place] Creatinine [Mass/Vol] 4.50 mg/dL High 0.70-1.30 [facility] Comment on above: Performed By: #### C BCNO, BMP #### [facility] [address] [place] [id number] [place] Creatinine Clr Calc Pharmacy 22.08 Normal [facility] Comment on above: Result Comment: PERF ORMED BY: [place] [address] PATHOLOGIST PRODUCT MARKETER ESSAR VAUGHN M.D. Performed By: #### C CASE, BMP #### [facility] [address] [place] [address] [place] GFR/1.73 sq M.predicted MDRD (S/P/Bld) [Vol rate/Area] 14.440 mL/min/{1.73_m2} Normal [facility] Comment on above: Performed By: #### C CASE, BMP #### [facility] [address] Glucose [Mass/Vol] 119 mg/dL High 74-109 [facility] Comment on above: Result Comment: [facility] Glucose Reference Range is dependent on time and content of last meal. Glucose of more than 200 mg/dL in a nonstressed, ambulatory subject supports the diagnosis of Diabetes Mellitus. ADA recommended reference range Performed By: #### C CASE, BMP #### [address] Potassium [Moles/Vol] 4.0 mmol/L Normal 3.5-5.1 [facility] Comment on above: Performed By: #### C CASE, BMP #### [address] Sodium [Moles/Vol] 138 mmol/L Normal 136-145 [facility] Comment on above: Performed By: #### C CAES, BMP #### [place] [address] [place] Urea nitrogen [Mass/Vol] 71 mg/dL High 7-25 [facility] Comment on above: Performed By: #### C CASE, BMP #### [address] Blood carbon dioxide, total measurement by calculation (moles/volume)Ordered By: Sohan Kellogg on 05-28-2022 CO2 Calc (Bld) [Moles/Vol] 20 mmol/L 23-[address] [facility] [address] biopsyOrdered By: Sohan Kellogg on 05-28-2022 Hematocrit (Bld) [Volume fraction] 28.0 % 38.0-51.0 [facility] Calcium [Mass/volume] in Ser um or PlasmaOrdered By: Gopal Ochoa on 05-28-2022 Calcium [Mass/Vol] 8.3 mg/dL 8.6-10.3 [facility] Carbon dioxide, total [Moles /volume] in Serum or PlasmaOrdered By: Gopal Ochoa on 05-28-2022 CO2 [Moles/Vol] 20.2 mmol/L 21.0-31.0 [facility] Chloride [Moles/volume] in S yulissa or PlasmaOrdered By: Gopal Ochoa on 05-28-2022 Chloride [Moles/Vol] 107 mmol/L 98-107 [facility] Creatinine [Mass/volume] in Serum or PlasmaOrdered By: Gopal cOhoa on 05-28-2022 Creatinine [Mass/Vol] 4.50 mg/dL 0.70-1.30 [facility] Erythrocyte distribution wid th Auto (RBC) [Ratio]Ordered By: Gopal Ochoa on 05-28-2022 Erythrocyte distribution width (RBC) [Ratio] 15.5 % 12.0-14.8 [facility] Glucose Glucometer (BldC) [M ass/Vol]Ordered By: Sohan Kellogg on 05-28-2022 Glucose [Mass/Vol] 122 mg/dL [facility] Comment on above: Random Glucose Refer ence Range is dependent on time and content of last meal. Glucose of more than 200 mg/dL in a nonstressed, ambulatory subject supports the diagnosis of Diabetes Mellitus. Glucose [Mass/Vol] 116 mg/dL 70-105 [facility] Glucose Poct Glucometerson 0 05-28-2022 Glucose [Mass/Vol] 122 mg/dL Normal [facility] Comment on above: Result Comment: [place] [facility] Glucose Reference Range is dependent on time and content of last meal. Glucose of more than 200 mg/dL in a nonstressed, ambulatory subject supports the diagnosis of Diabetes Mellitus. PERFORMED BY: [address] [place] [place] [address] PATHOLOGIST PRODUCT MARKETER SESAR VAUGHN M.D. Performed By: #### R ENAL, CBC #### [facility] [address] Glucose [Mass/Vol] 120 mg/dL Normal [facility] Comment on above: Result Comment: [place] [facility] Glucose Reference Range is dependent on time and content of last meal. Glucose of more than 200 mg/dL in a nonstressed, ambulatory subject supports the diagnosis of Diabetes Mellitus. PERFORMED BY: [facility] [address] [place] [address] PATHOLOGIST PRODUCT MARKETER SESAR VAUGHN M.D. Performed By: #### C BCNO, BMP #### [facility] [address] Glucose [Mass/volume] in Ser um or PlasmaOrdered By: Gopal Ochoa on 05-28-2022 Glucose [Mass/Vol] 119 mg/dL 74-109 [facility] Comment on above: ADA recommended refe rence rangeRandom Glucose Reference Range is dependent on time and content of last meal. Glucose of more than 200 mg/dL in a nonstressed, ambulatory subject supports the diagnosis of Diabetes Mellitus. Hematocrit Auto (Bld) [Volum e fraction]Ordered By: Gopal Ochoa on 05-28-2022 Hematocrit (Bld) [Volume fraction] 28.8 % 38.8-50.0 [facility] Hemoglobin Calc (Bld) [Mass/ Vol]Ordered By: Sohan Kellogg on 05-28-2022 Hemoglobin (Bld) [Mass/Vol] 9.5 g/dL 12.0-17.0 [facility] Hemoglobin [Mass/volume] in BloodOrdered By: Gopal Ochoa on 05-28-2022 Hemoglobin (Bld) [Mass/Vol] 9.5 g/dL 13.0-17.0 [facility] Hemogram CBC Without Diffon 05-28-2022 Erythrocyte distribution width (RBC) [Ratio] 15.5 % High 12.0-14.8 [facility] Comment on above: Performed By: #### C BCNO, BMP #### [facility] [address] Hematocrit (Bld) [Volume fraction] 28.8 % Low 38.8-50.0 [facility] Comment on above: Performed By: #### C CASE, BMP #### [address] Hemoglobin (Bld) [Mass/Vol] 9.5 g/dL Low 13.0-17.0 [facility] Comment on above: Performed By: #### C CASE, BMP #### [address] MCH (RBC) [Entitic mass] 27.1 pg Low 27.5-35.2 [facility] Comment on above: Performed By: #### C CASE, BMP #### [address] MCV (RBC) [Entitic vol] 81.6 fL Low 83.5-101 [facility] Comment on above: Performed By: #### C CASE, BMP #### [address] Mean Corpuscular HGB Conc 33.2 g/dL Normal 32.5-35.6 [facility] Comment on above: Performed By: #### C CASE, BMP #### [address] Platelet mean volume (Bld) [Entitic vol] 8.5 fL Normal 6.6-10.1 [facility] Comment on above: Result Comment: PERF ORMED BY: [address] [place] [address] PATHOLOGIST PRODUCT MARKETER SESAR VAUGHN M.D. Performed By: #### C CASE, BMP #### [address] Platelets (Bld) [#/Vol] 302 10*3/uL Normal 150-450 [facility] Comment on above: Performed By: #### C CASE, BMP #### [address] RBC (Bld) [#/Vol] 3.52 10*6/uL Low 3.90-5.60 [facility] Comment on above: Performed By: #### C BCNO, BMP #### [address] WBC (Bld) [#/Vol] 6.9 10*3/uL Normal 4.1-10.5 [facility] Comment on above: Performed By: #### C BCNO, BMP #### [address] ISTAT ABGon 05-28-2022 CO2 [Moles/Vol] 20 mmol/L Low 23-29 [facility] Comment on above: Performed By: #### R ENAL, CBC #### [address] Glucose [Mass/Vol] 116 mg/dL High 70-105 [facility] Comment on above: Result Comment: PERF ORMED BY: [place] [address] PATHOLOGIST PRODUCT MARKETER SESAR VAUGHN M.D. Performed By: #### R ENAL, CBC #### [address] HCO3 (Bld) [Moles/Vol] 19.4 mmol/L Low 22.0-28.0 [facility] Comment on above: Performed By: #### R ENAL, CBC #### [address] Hematocrit (Bld) [Volume fraction] 28.0 % Low 38.0-51.0 [facility] Comment on above: Performed By: #### R ENAL, CBC #### [address] Hemoglobin (Bld) [Mass/Vol] 9.5 g/dL Low 12.0-17.0 [facility] Comment on above: Performed By: #### R ENAL, CBC #### [address] ISTAT Base Excess -5 mmol/L Low -2 TO 3 [facility] Comment on above: Performed By: #### R ENAL, CBC #### [facility] [address] ISTAT Ionized Calcium 1.22 mol/L Normal 1.12-1.32 [facility] Comment on above: Performed By: #### R ENAL, CBC #### [facility] [address] [place] [address] [place] ISTAT PCO2 27.8 mm[Hg] Low 35-51 [facility] Comment on above: Performed By: #### R ENAL, CBC #### [facility] [address] ISTAT Ph 7.451 High 7.31-7.45 [facility] Comment on above: Performed By: #### R ENAL, CBC #### [place] [address] [place] ISTAT PO2 43 mm[Hg] Low 80-105 [facility] Comment on above: Performed By: #### R ENAL, CBC #### [address] Oxygen saturation in Blood 82 % Low 95-98 [facility] Comment on above: Result Comment: Refe rence ranges reflect baseline specimens only Performed By: #### R ENAL, CBC #### [address] Potassium [Moles/Vol] 4.0 mmol/L Normal 3.5-4.9 [facility] Comment on above: Performed By: #### R ENAL, CBC #### [place] [address] [place] Sodium [Moles/Vol] 141 mmol/L Normal 138-146 [facility] Comment on above: Performed By: #### R ENAL, CBC #### [address] Laboratory - Chemistry and C hemistry - challengeOrdered By: Gopal Ochoa on 05-28-2022 GFR/1.73 sq M.predicted MDRD (S/P/Bld) [Vol rate/Area] 14.440 mL/min/{1.73_m2} [facility] Leukocytes [#/volume] correc annalisa for nucleated erythrocytes in Blood by Automated counOrdered By: Gopal Ochoa on 05-28-2022 WBC corrected for nucl RBC Auto (Bld) [#/Vol] 6.9 10*3/uL 4.1-10.5 [facility] MCH Auto (RBC) [Entitic mass ]Ordered By: Gopal Ochoa on 05-28-2022 MCH (RBC) [Entitic mass] 27.1 pg 27.5-35.2 [facility] MCHC Auto (RBC) [Mass/Vol]Or dered By: Gopal Ochoa on 05-28-2022 MCHC (RBC) [Mass/Vol] 33.2 g/dL 32.5-35.6 [facility] MCV Auto (RBC) [Entitic vol] Ordered By: Gopal Ochoa on 05-28-2022 MCV (RBC) [Entitic vol] 81.6 fL 83.5-101 [facility] Monocyte %Ordered By: Sohan Kellogg on 05-28-2022 Monocyte % 27.8 mm[Hg] 35-51 [facility] Monocyte % 43 mm[Hg] 80-105 [facility] No Panel InformationOrdered By: Gopal Ochoa on 05-28-2022 Pharmacy Creatinine Clearance (Chem 22.08 [facility] Platelet mean volume Auto (B ld) [Entitic vol]Ordered By: Gopal Ochoa on 05-28-2022 Platelet mean volume (Bld) [Entitic vol] 8.5 fL 6.6-10.1 [facility] Platelets Auto (Bld) [#/Vol] Ordered By: Gopal Ochoa on 05-28-2022 Platelets (Bld) [#/Vol] 302 10*3/uL 150-450 [facility] Potassium (Bld) [Moles/Vol]O rdered By: Sohan Kellogg on 05-28-2022 Potassium [Moles/Vol] 4.0 mmol/L 3.5-4.9 [facility] Potassium [Moles/volume] in Serum or PlasmaOrdered By: Gopal Ochoa on 05-28-2022 Potassium [Moles/Vol] 4.0 mmol/L 3.5-5.1 [facility] RBC Auto (Bld) [#/Vol]Ordere d By: Gopal Ochoa on 05-28-2022 RBC (Bld) [#/Vol] 3.52 10*6/uL 3.90-5.60 [facility] Serum or plasma anion gap de terminationOrdered By: Goapl Ochoa on 05-28-2022 Anion gap [Moles/Vol] 14.8 mmol/L 6.0-15.0 [facility] Sodium (Bld) [Moles/Vol]Orde red By: Sohan Kellogg on 05-28-2022 Sodium [Moles/Vol] 141 mmol/L 138-146 [facility] Sodium [Moles/volume] in Ser um or PlasmaOrdered By: Gopal Ochoa on 05-28-2022 Sodium [Moles/Vol] 138 mmol/L 136-145 [facility] Urea nitrogen [Mass/volume] in Serum or PlasmaOrdered By: Gopal Ochoa on 05-28-2022 Urea nitrogen [Mass/Vol] 71 mg/dL 7-25 [facility] Whole blood bicarbonate bertha urementOrdered By: Sohan Kellogg on 05-28-2022 HCO3 (Bld) [Moles/Vol] 19.4 mmol/L 22.0-28.0 [facility] Whole blood ionized calcium measurement (moles/volume)Ordered By: Sohan Kellogg on 05-28-2022 Calcium.ionized (Bld) [Moles/Vol] 1220 mmol/L 1.12-1.32 [facility] Whole blood oxygen saturatio n measurementOrdered By: Sohan Kellogg on 05-28-2022 Oxygen saturation in Blood 82 % 95-98 [facility] Comment on above: Reference ranges ref lect baseline specimens only Whole blood pHOrdered By: Jeniffer Kellogg on 05-28-2022 pH (Bld) 7.451 Units 7.31-7.45 [facility] C reactive protein [Mass/vol ume] in Serum or PlasmaOrdered By: Eddy Griggs on 05-27-2022 CRP [Mass/Vol] 6.3 mg/dL 0.0-0.4 [facility] C-Reactive Proteinon 023 C-Reactive Protein 6.3 mg/dL High 0.0-0.4 [facility] Comment on above: Result Comment: PERF ORMED BY: [facility] [address] [place] [address] PATHOLOGIST PRODUCT MARKETER SESAR VAUGHN M.D. Performed By: #### C RP ####[facility] [id number] [place] [address] [facility] Albumin [Mass/volume] in Ser um or PlasmaOrdered By: Salvador Alonso on 05-25-2022 Albumin [Mass/Vol] 1.7 g/dL 3.2-5.5 [facility] Basophils Auto (Bld) [#/Vol] Ordered By: Salvador Alonso on 05-25-2022 Basophils (Bld) [#/Vol] 0.1 10*3/uL 0.0-0.2 [facility] Basophils/100 WBC Auto (Bld) Ordered By: Salvador Alonso on 05-25-2022 Basophils/100 WBC (Bld) 1.0 % . [facility] Calcium [Mass/volume] in Ser um or PlasmaOrdered By: Salvador Alonso on 05-25-2022 Calcium [Mass/Vol] 7.8 mg/dL 8.2-10.2 [facility] Carbon dioxide, total [Moles /volume] in Serum or PlasmaOrdered By: Salvador Alonso on 05-25-2022 CO2 [Moles/Vol] 21.0 mmol/L 22.0-30.0 [facility] Chloride [Moles/volume] in S yulissa or PlasmaOrdered By: Salvador Alonso on 05-25-2022 Chloride [Moles/Vol] 104 mmol/L 95-114 [facility] Complete Blood Count Auto Di ffon 05-25-2022 Basophils (Bld) [#/Vol] 0.1 10*3/uL Normal 0.0-0.2 [facility] Comment on above: Result Comment: PERF ORMED BY: [facility] [address] PATHOLOGIST PRODUCT MARKETER SESAR VAUGHN M.D. Performed By: #### G LULS #### Point of Care testing , Basophils/100 WBC (Bld) 1.0 % Normal . [facility] Comment on above: Performed By: #### G LULS #### Point of Care testing , Eosinophils (Bld) [#/Vol] 0.3 10*3/uL Normal 0.0-0.45 [facility] Comment on above: Performed By: #### G LULS #### Point of Care testing , Eosinophils/100 WBC (Bld) 3.4 % Normal . [facility] Comment on above: Performed By: #### G LULS #### Point of Care testing , Erythrocyte distribution width (RBC) [Ratio] 15.0 % High 12.0-14.8 [facility] Comment on above: Performed By: #### G LULS #### Point of Care testing , Hematocrit (Bld) [Volume fraction] 23.7 % Low 38.8-50.0 [facility] Comment on above: Performed By: #### G LULS #### Point of Care testing , Hemoglobin (Bld) [Mass/Vol] 7.9 g/dL Low 13.0-17.0 [facility] Comment on above: Performed By: #### G LULS #### Point of Care testing , Lymphocytes (Bld) [#/Vol] 0.7 10*3/uL Low 1.00-4.8 [facility] Comment on above: Performed By: #### G LULS #### Point of Care testing , Lymphocytes/100 WBC (Bld) 9.2 % Normal . [facility] Comment on above: Performed By: #### G LULS #### Point of Care testing , MCH (RBC) [Entitic mass] 27.4 pg Low 27.5-35.2 [facility] Comment on above: Performed By: #### G LULS #### Point of Care testing , MCV (RBC) [Entitic vol] 81.7 fL Low 83.5-101 [facility] Comment on above: Performed By: #### G HOLGERLS #### Point of Care testing , Mean Corpuscular HGB Conc 33.6 g/dL Normal 32.5-35.6 [facility] Comment on above: Performed By: #### G HOLGERLS #### Point of Care testing , Monocytes (Bld) [#/Vol] 0.8 10*3/uL Normal 0.0-0.8 [facility] Comment on above: Performed By: #### G HOLGERLS #### Point of Care testing , Monocytes/100 WBC (Bld) 10.5 % Normal . [facility] Comment on above: Performed By: #### G HOLGERLS #### Point of Care testing , Neutrophils (Bld) [#/Vol] 5.8 10*3/uL Normal 1.8-7.7 [facility] Comment on above: Performed By: #### Lily WRENLS #### Point of Care testing , Neutrophils/100 WBC (Bld) 75.9 % Normal . [facility] Comment on above: Performed By: #### Lily NOEL #### Point of Care testing , NRBC% 0.0 /100{WBC} Normal 0-0.5 [facility] Comment on above: Performed By: #### G BERT #### Point of Care testing , Platelet mean volume (Bld) [Entitic vol] 8.6 fL Normal 6.6-10.1 [facility] Comment on above: Performed By: #### G BERT #### Point of Care testing , Platelets (Bld) [#/Vol] 191 10*3/uL Normal 150-450 [facility] Comment on above: Performed By: #### G HOLGERLS #### Point of Care testing , RBC (Bld) [#/Vol] 2.90 10*6/uL Low 3.90-5.60 [facility] Comment on above: Performed By: #### Lily NOEL #### Point of Care testing , WBC (Bld) [#/Vol] 7.7 10*3/uL Normal 4.1-10.5 [facility] Comment on above: Performed By: #### G BERT #### Point of Care testing , Creatinine and Glomerular fi ltration rate.predicted panel (S/P/Bld)Ordered By: Salvador Alonso on 05-25-2022 Creatinine [Mass/Vol] 4.55 mg/dL 0.64-1.27 [facility] Eosinophils Auto (Bld) [#/Vo l]Ordered By: Salavdor Alonso on 05-25-2022 Eosinophils (Bld) [#/Vol] 0.3 10*3/uL 0.0-0.45 [facility] Eosinophils/100 WBC Auto (Bl d)Ordered By: SalvadorRegan on 05-25-2022 Eosinophils/100 WBC (Bld) 3.4 % . [facility] Erythrocyte distribution wid th Auto (RBC) [Ratio]Ordered By: Salvador Alonso on 05-25-2022 Erythrocyte distribution width (RBC) [Ratio] 15.0 % 12.0-14.8 [facility] Estimated glomerular filtrat ion rate (GFR) non- AmericanOrdered By: Salvador Alonso on 05-25-2022 GFR/1.73 sq M.predicted among non-blacks MDRD (S/P/Bld) [Vol rate/Area] 13 mL/Min [facility] Glucose Glucometer (BldC) [M ass/Vol]Ordered By: Scotty Kahn on 05-25-2022 Glucose [Mass/Vol] 151 mg/dL [facility] Comment on above: Random Glucose Refer ence Range is dependent on time and content of last meal. Glucose of more than 200 mg/dL in a nonstressed, ambulatory subject supports the diagnosis of Diabetes Mellitus. Glucose Poct Glucometerson 0 05-25-2022 Commemt1 Glu2: Cleaned Meter Normal [facility] Comment on above: Result Comment: PERF ORMED BY: [facility] [address] [place] [address] PATHOLOGIST PRODUCT MARKETER JIANLAN SUN M.D. Performed By: #### G LULS #### Point of Care testing , Glucose [Mass/Vol] 151 mg/dL Normal [facility] Comment on above: Result Comment: [place] [facility] Glucose Reference Range is dependent on time and content of last meal. Glucose of more than 200 mg/dL in a nonstressed, ambulatory subject supports the diagnosis of Diabetes Mellitus. Performed By: #### G LULS #### Point of Care testing , Commemt1 Glu2: Cleaned Meter Normal [facility] Comment on above: Result Comment: PERF ORMED BY: [place] [address] PATHOLOGIST PRODUCT MARKETER SESAR VAUGHN M.D. Performed By: #### C BCNO, BMP #### [facility] [address] Glucose [Mass/Vol] 101 mg/dL Normal [facility] Comment on above: Result Comment: [place] Glucose Reference Range is dependent on time and content of last meal. Glucose of more than 200 mg/dL in a nonstressed, ambulatory subject supports the diagnosis of Diabetes Mellitus. Performed By: #### C BCNO, BMP #### [facility] [address] [place] [address] [place] Glucose [Mass/volume] in Ser um or PlasmaOrdered By: Salvador Alonso on 05-25-2022 Glucose [Mass/Vol] 94 mg/dL 70-100 [facility] Comment on above: ADA recommended refe rence rangeRandom Glucose Reference Range is dependent on time and content of last meal. Glucose of more than 200 mg/dL in a nonstressed, ambulatory subject supports the diagnosis of Diabetes Mellitus. Hematocrit Auto (Bld) [Volum e fraction]Ordered By: Salvador Alonso on 05-25-2022 Hematocrit (Bld) [Volume fraction] 23.7 % 38.8-50.0 [facility] Hemoglobin [Mass/volume] in BloodOrdered By: Salvador Alonso on 05-25-2022 Hemoglobin (Bld) [Mass/Vol] 7.9 g/dL 13.0-17.0 [facility] Leukocytes [#/volume] correc annalisa for nucleated erythrocytes in Blood by Automated counOrdered By: Salvador Alonso on 05-25-2022 WBC corrected for nucl RBC Auto (Bld) [#/Vol] 7.7 10*3/uL 4.1-10.5 [facility] Lymphocytes Auto (Bld) [#/Vo l]Ordered By: Salvador Gavin on 05-25-2022 Lymphocytes (Bld) [#/Vol] 0.7 10*3/uL 1.00-4.8 [facility] Lymphocytes/100 WBC Auto (Bl d)Ordered By: Salvador Gavin on 05-25-2022 Lymphocytes/100 WBC (Bld) 9.2 % . [facility] MCH Auto (RBC) [Entitic mass ]Ordered By: SalvadorBacham on 05-25-2022 MCH (RBC) [Entitic mass] 27.4 pg 27.5-35.2 [facility] MCHC Auto (RBC) [Mass/Vol]Or dered By: Salvador Gavin on 05-25-2022 MCHC (RBC) [Mass/Vol] 33.6 g/dL 32.5-35.6 [facility] MCV Auto (RBC) [Entitic vol] Ordered By: Salvador Gavin on 05-25-2022 MCV (RBC) [Entitic vol] 81.7 fL 83.5-101 [facility] Monocytes Auto (Bld) [#/Vol] Ordered By: Salvador Gavin on 05-25-2022 Monocytes (Bld) [#/Vol] 0.8 10*3/uL 0.0-0.8 [facility] Monocytes/100 WBC Auto (Bld) Ordered By: Salvador Gavin on 05-25-2022 Monocytes/100 WBC (Bld) 10.5 % . [facility] Neutrophils Auto (Bld) [#/Vo l]Ordered By: Salvador Gavin on 05-25-2022 Neutrophils (Bld) [#/Vol] 5.8 10*3/uL 1.8-7.7 [facility] Neutrophils/100 WBC Auto (Bl d)Ordered By: Salvador Gavin on 03-06-2023 Neutrophils/100 WBC (Bld) 75.9 % . [facility] No Panel InformationOrdered By: Scotty Kahn on 05-25-2022 Bedside Glucose Comment Glu2: cleaned meter [facility] No Panel InformationOrdered By: Salvador Alonso on 05-25-2022 Estimated GFR () 16 mL/Min [facility] Comment on above: GFR estimated refere nce range: According to KDOQI guidelines, <60 ml/min/1.73m2 is sufficient to diagnose a patient with chronic kidney disease. Pharmacy Creatinine Clearance (Chem 21.99 [facility] Nucleated erythrocytes [Pres ence] in Blood by Automated countOrdered By: Salvador Alonso on 05-25-2022 Nucleated RBC Auto Ql (Bld) 0.0 /100{WBC} 0-0.5 [facility] Phosphate [Mass/volume] in S yulissa or PlasmaOrdered By: Salvador Alonso on 05-25-2022 Phosphate [Mass/Vol] 4.1 mg/dL 2.5-4.6 [facility] Platelet mean volume Auto (B ld) [Entitic vol]Ordered By: Salvador Alonso on 05-25-2022 Platelet mean volume (Bld) [Entitic vol] 8.6 fL 6.6-10.1 [facility] Platelets Auto (Bld) [#/Vol] Ordered By: Salvador Alonso on 05-25-2022 Platelets (Bld) [#/Vol] 191 10*3/uL 150-450 [facility] Potassium [Moles/volume] in Serum or PlasmaOrdered By: Salvador Alonso on 05-25-2022 Potassium [Moles/Vol] 4.2 mmol/L 3.5-5.1 [facility] RBC Auto (Bld) [#/Vol]Ordere d By: Salvador Alonso on 05-25-2022 RBC (Bld) [#/Vol] 2.90 10*6/uL 3.90-5.60 [facility] Renal Function Panelon 05-25 Albumin [Mass/Vol] 1.7 g/dL Low 3.2-5.5 [facility] Comment on above: Performed By: #### G LULS #### Point of Care testing , Anion gap [Moles/Vol] 13.2 mmol/L Normal 6.0-15.0 [facility] Comment on above: Performed By: #### G LULS #### Point of Care testing , Calcium [Mass/Vol] 7.8 mg/dL Low 8.2-10.2 [facility] Comment on above: Performed By: #### G LULS #### Point of Care testing , Chloride [Moles/Vol] 104 mmol/L Normal 95-114 [facility] Comment on above: Performed By: #### G LULS #### Point of Care testing , CO2 [Moles/Vol] 21.0 mmol/L Low 22.0-30.0 [facility] Comment on above: Performed By: #### G LULS #### Point of Care testing , Creatinine [Mass/Vol] 4.55 mg/dL High 0.64-1.27 [facility] Comment on above: Performed By: #### G LULS #### Point of Care testing , Creatinine Clr Calc Pharmacy 21.99 [facility] Comment on above: Result Comment: PERF ORMED BY: [facility] [address] [place] [address] PATHOLOGIST PRODUCT MARKETER SESAR VAUGHN M.D. Performed By: #### G LULS #### Point of Care testing , Estimated GFR ( Wendy 16 [facility] Comment on above: Result Comment: GFR estimated reference range: According to KDOQI guidelines, <60 ml/min/1.73m2 is sufficient to diagnose a patient with chronic kidney disease. Performed By: #### G LULS #### Point of Care testing , Estimated GFR (Non- Am 13 [facility] Comment on above: Performed By: #### G LULS #### Point of Care testing , Glucose [Mass/Vol] 94 mg/dL Normal 70-100 [facility] Comment on above: Result Comment: [place] Glucose Reference Range is dependent on time and content of last meal. Glucose of more than 200 mg/dL in a nonstressed, ambulatory subject supports the diagnosis of Diabetes Mellitus. ADA recommended reference range Performed By: #### G LULS #### Point of Care testing , Phosphate [Mass/Vol] 4.1 mg/dL Normal 2.5-4.6 [facility] Comment on above: Performed By: #### G LULS #### Point of Care testing , Potassium [Moles/Vol] 4.2 mmol/L Normal 3.5-5.1 [facility] Comment on above: Performed By: #### G LULS #### Point of Care testing , Sodium [Moles/Vol] 134 mmol/L Low 136-146 [facility] Comment on above: Performed By: #### G LULS #### Point of Care testing , Urea nitrogen [Mass/Vol] 68 mg/dL High 12-12 [facility] Comment on above: Performed By: #### G LULS #### Point of Care testing , Serum or plasma anion gap de terminationOrdered By: Salvador Alonso on 05-25-2022 Anion gap [Moles/Vol] 13.2 mmol/L 6.0-15.0 [facility] Sodium [Moles/volume] in Ser um or PlasmaOrdered By: Salvador Alonso on 05-25-2022 Sodium [Moles/Vol] 134 mmol/L 136-146 [facility] Urea nitrogen [Mass/volume] in Serum or PlasmaOrdered By: Salvador Alonso on 05-25-2022 Urea nitrogen [Mass/Vol] 68 mg/dL 12-12 [facility] WBC Auto (Bld) [#/Vol]Ordere d By: Salvador Aolnso on 05-25-2022 WBC (Bld) [#/Vol] 7.7 10*3/uL 4.1-10.5 [facility] Complete Blood Count Auto Di ffon 05-24-2022 Basophils (Bld) [#/Vol] 0.1 10*3/uL Normal 0.0-0.2 [facility] Comment on above: Result Comment: PERF ORMED BY: [facility] [place] [address] PATHOLOGIST PRODUCT MARKETER SESAR VAUGHN M.D. Performed By: #### C CASE, BMP #### [address] Basophils/100 WBC (Bld) 1.4 % Normal . [facility] Comment on above: Performed By: #### C CASE, BMP #### [facility] [address] [place] [address] [place] Eosinophils (Bld) [#/Vol] 0.2 10*3/uL Normal 0.0-0.45 [facility] Comment on above: Performed By: #### C CASE, BMP #### [address] Eosinophils/100 WBC (Bld) 2.7 % Normal . [facility] Comment on above: Performed By: #### C CASE, BMP #### [address] Erythrocyte distribution width (RBC) [Ratio] 15.0 % High 12.0-14.8 [facility] Comment on above: Performed By: #### C CASE, BMP #### [address] Hematocrit (Bld) [Volume fraction] 24.2 % Low 38.8-50.0 [facility] Comment on above: Performed By: #### C CASE, BMP #### [place] [address] [place] Hemoglobin (Bld) [Mass/Vol] 8.0 g/dL Low 13.0-17.0 [facility] Comment on above: Performed By: #### C CASE, BMP #### [place] [address] [place] Lymphocytes (Bld) [#/Vol] 0.8 10*3/uL Low 1.00-4.8 [facility] Comment on above: Performed By: #### C CASE, BMP #### [place] [address] [place] Lymphocytes/100 WBC (Bld) 11.4 % Normal . [facility] Comment on above: Performed By: #### C CASE, BMP #### [address] MCH (RBC) [Entitic mass] 27.2 pg Low 27.5-35.2 [facility] Comment on above: Performed By: #### C CASE, BMP #### [address] MCV (RBC) [Entitic vol] 82.0 fL Low 83.5-101 [facility] Comment on above: Performed By: #### C CASE, BMP #### [address] Mean Corpuscular HGB Conc 33.1 g/dL Normal 32.5-35.6 [facility] Comment on above: Performed By: #### C CASE, BMP #### [address] Monocytes (Bld) [#/Vol] 0.7 10*3/uL Normal 0.0-0.8 [facility] Comment on above: Performed By: #### C CASE, BMP #### [address] Monocytes/100 WBC (Bld) 9.3 % Normal . [facility] Comment on above: Performed By: #### C BCSHANTANU, BMP #### [address] Neutrophils (Bld) [#/Vol] 5.4 10*3/uL Normal 1.8-7.7 [facility] Comment on above: Performed By: #### C BCSHANTANU, BMP #### [address] Neutrophils/100 WBC (Bld) 75.2 % Normal . [facility] Comment on above: Performed By: #### C BCNO, BMP #### [address] NRBC% 0.1 /100{WBC} Normal 0-0.5 [facility] Comment on above: Performed By: #### C ESTHER WILLOUGHBY #### [address] Platelet mean volume (Bld) [Entitic vol] 8.3 fL Normal 6.6-10.1 [facility] Comment on above: Performed By: #### C ESTHER WILLOUGHBY #### [address] Platelets (Bld) [#/Vol] 170 10*3/uL Normal 150-450 [facility] Comment on above: Performed By: #### C ESTHER WILLOUGHBY #### [address] RBC (Bld) [#/Vol] 2.95 10*6/uL Low 3.90-5.60 [facility] Comment on above: Performed By: #### ESTHER FERRARI #### [address] WBC (Bld) [#/Vol] 7.1 10*3/uL Normal 4.1-10.5 [facility] Comment on above: Performed By: #### ESTHER FERRARI #### [address] Glucose Poct Glucometerson 0 05-24-2022 Commemt1 Glu2: Cleaned Meter Normal [facility] Comment on above: Result Comment: PERF ORMED BY: [place] [address] PATHOLOGIST PRODUCT MARKETER SESAR VAUGHN M.D. Performed By: #### G BERT ####Point of Care testing, Glucose [Mass/Vol] 150 mg/dL Normal [facility] Comment on above: Result Comment: [place] Glucose Reference Range is dependent on time and content of last meal. Glucose of more than 200 mg/dL in a nonstressed, ambulatory subject supports the diagnosis of Diabetes Mellitus. Performed By: #### G BERT ####Point of Care testing, Glucose [Mass/Vol] 131 mg/dL Normal [facility] Comment on above: Result Comment: [place] Glucose Reference Range is dependent on time and content of last meal. Glucose of more than 200 mg/dL in a nonstressed, ambulatory subject supports the diagnosis of Diabetes Mellitus. PERFORMED BY: [facility] [address] [place] [address] PATHOLOGIST PRODUCT MARKETER SESAR VAUGHN M.D. Performed By: #### G LULS ####Point of Care testing, Glucose [Mass/Vol] 147 mg/dL Normal [facility] Comment on above: Result Comment: [facility] Glucose Reference Range is dependent on time and content of last meal. Glucose of more than 200 mg/dL in a nonstressed, ambulatory subject supports the diagnosis of Diabetes Mellitus. PERFORMED BY: [place] [id number] PATHOLOGIST PRODUCT MARKETER SESAR VAUGHN M.D. Performed By: #### G LULS #### Point of Care testing , Glucose [Mass/Vol] 101 mg/dL Normal [facility] Comment on above: Result Comment: [facility] Glucose Reference Range is dependent on time and content of last meal. Glucose of more than 200 mg/dL in a nonstressed, ambulatory subject supports the diagnosis of Diabetes Mellitus. PERFORMED BY: [place] [id number] PATHOLOGIST PRODUCT MARKETER SESAR VAUGHN M.D. Performed By: #### G LULS ####Point of Care testing, Renal Function Panelon 05-24 Albumin [Mass/Vol] 1.6 g/dL Low 3.2-5.5 [facility] Comment on above: Performed By: #### C CASE BMP #### [facility] [address] Anion gap [Moles/Vol] 13.6 mmol/L Normal 6.0-15.0 [facility] Comment on above: Performed By: #### C CASE, BMP #### [facility] [address] [place] [address] Calcium [Mass/Vol] 7.5 mg/dL Low 8.2-10.2 [facility] Comment on above: Performed By: #### C CASE, BMP #### [facility] [address] Chloride [Moles/Vol] 104 mmol/L Normal 95-114 [facility] Comment on above: Performed By: #### C BCSHANTANU, BMP #### [address] CO2 [Moles/Vol] 19.6 mmol/L Low 22.0-30.0 [facility] Comment on above: Performed By: #### C CASE, BMP #### [address] Creatinine [Mass/Vol] 4.62 mg/dL High 0.64-1.27 [facility] Comment on above: Performed By: #### C CASE, BMP #### [address] Creatinine Clr Calc Pharmacy 21.46 [facility] Comment on above: Result Comment: PERF ORMED BY: [place] [address] PATHOLOGIST PRODUCT MARKETER SESAR VAUGHN M.D. Performed By: #### C CASE, BMP #### [address] Estimated GFR ( Wendy 16 [facility] Comment on above: Result Comment: GFR estimated reference range: According to KDOQI guidelines, <60 ml/min/1.73m2 is sufficient to diagnose a patient with chronic kidney disease. Performed By: #### C CASE, BMP #### [place] [address] [place] Estimated GFR (Non- Am 13 [facility] Comment on above: Performed By: #### C BCNO, BMP #### [address] Glucose [Mass/Vol] 87 mg/dL Normal 70-100 [facility] Comment on above: Result Comment: [place] Glucose Reference Range is dependent on time and content of last meal. Glucose of more than 200 mg/dL in a nonstressed, ambulatory subject supports the diagnosis of Diabetes Mellitus. ADA recommended reference range Performed By: #### C BCNO, BMP #### [facility] [address] Phosphate [Mass/Vol] 4.3 mg/dL Normal 2.5-4.6 [facility] Comment on above: Performed By: #### C BCNO, BMP #### [facility] [address] [place] [address] [place] Potassium [Moles/Vol] 4.2 mmol/L Normal 3.5-5.1 [facility] Comment on above: Performed By: #### C BCNO, BMP #### [facility] [address] [place] [address] [place] Sodium [Moles/Vol] 133 mmol/L Low 136-146 [facility] Comment on above: Performed By: #### C BCNO, BMP #### [facility] [address] [place] [address] [place] Urea nitrogen [Mass/Vol] 72 mg/dL High 9-23 [facility] Comment on above: Performed By: #### C BCNO, BMP #### [facility] [address] [place] [id number] [place] Vancomycin [Mass/volume] in Serum or PlasmaOrdered By: Salvador Alonso on 05-24-2022 Vancomycin [Mass/Vol] 18.0 ug/mL 5.0-20.0 [facility] Comment on above: Last dose: - Vancomycin,Randomon 05-25-19 Vancomycin,Random 18.0 ug/mL Normal 5.0-20.0 [facility] Comment on above: Order Comment: Date of last dose?: 20220522 Time of last dose?: 113 Result Comment: Last dose: - PERFORMED BY: [facility] [address] [place] [address] PATHOLOGIST PRODUCT MARKETER SESAR VAUGHN M.D. Performed By: #### G BERT #### Point of Care testing , Complete Blood Count Auto Di ffon 05-23-2022 Basophils (Bld) [#/Vol] 0.1 10*3/uL Normal 0.0-0.2 [facility] Comment on above: Result Comment: PERF ORMED BY: [place] [address] PATHOLOGIST PRODUCT MARKETER SESAR VAUGHN M.D. Performed By: #### C CASE, BMP #### [facility] [address] Basophils/100 WBC (Bld) 1.5 % Normal . [facility] Comment on above: Performed By: #### C CASE, BMP #### [address] Eosinophils (Bld) [#/Vol] 0.2 10*3/uL Normal 0.0-0.45 [facility] Comment on above: Performed By: #### C CASE, BMP #### [address] Eosinophils/100 WBC (Bld) 2.2 % Normal . [facility] Comment on above: Performed By: #### C CASE, BMP #### [address] Erythrocyte distribution width (RBC) [Ratio] 14.9 % High 12.0-14.8 [facility] Comment on above: Performed By: #### C CASE, BMP #### [address] Hematocrit (Bld) [Volume fraction] 24.7 % Low 38.8-50.0 [facility] Comment on above: Performed By: #### C BCSHANTANU, BMP #### [place] [address] [place] Hemoglobin (Bld) [Mass/Vol] 8.3 g/dL Low 13.0-17.0 [facility] Comment on above: Performed By: #### C BCSHANTANU, BMP #### [address] [place] [address] [place] Lymphocytes (Bld) [#/Vol] 0.8 10*3/uL Low 1.00-4.8 [facility] Comment on above: Performed By: #### C CASE, BMP #### [facility] [address] [place] [address] [place] Lymphocytes/100 WBC (Bld) 10.5 % Normal . [facility] Comment on above: Performed By: #### C CASE, BMP #### [facility] [address] MCH (RBC) [Entitic mass] 27.5 pg Normal 27.5-35.2 [facility] Comment on above: Performed By: #### C CASE, BMP #### [facility] [address] MCV (RBC) [Entitic vol] 81.5 fL Low 83.5-101 [facility] Comment on above: Performed By: #### C CASE, BMP #### [facility] [address] Mean Corpuscular HGB Conc 33.7 g/dL Normal 32.5-35.6 [facility] Comment on above: Performed By: #### C CASE, BMP #### [facility] [address] Monocytes (Bld) [#/Vol] 0.7 10*3/uL Normal 0.0-0.8 [facility] Comment on above: Performed By: #### C BCSHANTANU, BMP #### [facility] [address] [place] [address] [place] Monocytes/100 WBC (Bld) 10.0 % Normal . [facility] Comment on above: Performed By: #### C BCSHANTANU, BMP #### [facility] [address] [place] [address] [place] Neutrophils (Bld) [#/Vol] 5.6 10*3/uL Normal 1.8-7.7 [facility] Comment on above: Performed By: #### C BCSHANTANU, BMP #### [address] Neutrophils/100 WBC (Bld) 75.8 % Normal . [facility] Comment on above: Performed By: #### Hortencia WILLOUGHBY, BMP #### [facility] [address] NRBC% 0.1 /100{WBC} Normal 0-0.5 [facility] Comment on above: Performed By: #### C CASE, BMP #### [address] Platelet mean volume (Bld) [Entitic vol] 8.8 fL Normal 6.6-10.1 [facility] Comment on above: Performed By: #### C CASE, BMP #### [address] Platelets (Bld) [#/Vol] 171 10*3/uL Normal 150-450 [facility] Comment on above: Performed By: #### C CASE, BMP #### [address] RBC (Bld) [#/Vol] 3.03 10*6/uL Low 3.90-5.60 [facility] Comment on above: Performed By: #### Hortencia WILLOUGHBY, BMP #### [address] WBC (Bld) [#/Vol] 7.4 10*3/uL Normal 4.1-10.5 [facility] Comment on above: Performed By: #### C CASE, BMP #### [address] Glucose Poct Glucometerson 0 05-23-2022 Glucose [Mass/Vol] 125 mg/dL Normal [facility] Comment on above: Result Comment: [place] Glucose Reference Range is dependent on time and content of last meal. Glucose of more than 200 mg/dL in a nonstressed, ambulatory subject supports the diagnosis of Diabetes Mellitus. PERFORMED BY: [place] [address] PATHOLOGIST PRODUCT MARKETER SESAR VAUGHN M.D. Performed By: #### G LULS ####Point of Care testing, Glucose [Mass/Vol] 129 mg/dL Normal [facility] Comment on above: Result Comment: [place] Glucose Reference Range is dependent on time and content of last meal. Glucose of more than 200 mg/dL in a nonstressed, ambulatory subject supports the diagnosis of Diabetes Mellitus. PERFORMED BY: [place] [address] PATHOLOGIST PRODUCT MARKETER SESAR VAUGHN M.D. Performed By: #### G LUEVANGELISTA ####Point of Care testing, Glucose [Mass/Vol] 164 mg/dL Normal [facility] Comment on above: Result Comment: [facility] Glucose Reference Range is dependent on time and content of last meal. Glucose of more than 200 mg/dL in a nonstressed, ambulatory subject supports the diagnosis of Diabetes Mellitus. PERFORMED BY: [place] [address] PATHOLOGIST PRODUCT MARKETER SESAR VAUGHN M.D. Performed By: #### C RP #### [address] Renal Function Panelon 05-23 Albumin [Mass/Vol] 1.7 g/dL Low 3.2-5.5 [facility] Comment on above: Performed By: #### C BCNO, BMP #### [address] Anion gap [Moles/Vol] 13.0 mmol/L Normal 6.0-15.0 [facility] Comment on above: Performed By: #### C BCNO, BMP #### [place] [address] [place] Calcium [Mass/Vol] 7.5 mg/dL Low 8.2-10.2 [facility] Comment on above: Performed By: #### C BCNO, BMP #### [place] [address] [place] Chloride [Moles/Vol] 103 mmol/L Normal 95-114 [facility] Comment on above: Performed By: #### C BCNO, BMP #### [facility] [address] CO2 [Moles/Vol] 20.1 mmol/L Low 22.0-30.0 [facility] Comment on above: Performed By: #### C BCNO, BMP #### [facility] [address] Creatinine [Mass/Vol] 4.57 mg/dL High 0.64-1.27 [facility] Comment on above: Performed By: #### C BCNO, BMP #### [place] [address] [place] Creatinine Clr Calc Pharmacy 21.49 [facility] Comment on above: Result Comment: PERF ORMED BY: [place] [address] PATHOLOGIST PRODUCT MARKETER SESAR VAUGHN M.D. Performed By: #### C BCNO, BMP #### [address] Estimated GFR ( Wendy 16 [facility] Comment on above: Result Comment: GFR estimated reference range: According to KDOQI guidelines, <60 ml/min/1.73m2 is sufficient to diagnose a patient with chronic kidney disease. Performed By: #### C BCNO, BMP #### [place] [address] [place] Estimated GFR (Non- Am 13 [facility] Comment on above: Performed By: #### C BCNO, BMP #### [place] [address] [place] Glucose [Mass/Vol] 93 mg/dL Normal 70-100 [facility] Comment on above: Result Comment: [place] Glucose Reference Range is dependent on time and content of last meal. Glucose of more than 200 mg/dL in a nonstressed, ambulatory subject supports the diagnosis of Diabetes Mellitus. ADA recommended reference range Performed By: #### C BCNO, BMP #### [address] [place] [address] [place] Phosphate [Mass/Vol] 4.6 mg/dL Normal 2.5-4.6 [facility] Comment on above: Performed By: #### C BCNO, BMP #### [facility] [address] Potassium [Moles/Vol] 4.1 mmol/L Normal 3.5-5.1 [facility] Comment on above: Performed By: #### C BCNO, BMP #### [facility] [address] Sodium [Moles/Vol] 132 mmol/L Low 136-146 [facility] Comment on above: Performed By: #### C BCNO, BMP #### [address] Urea nitrogen [Mass/Vol] 69 mg/dL High 9-23 [facility] Comment on above: Performed By: #### C BCNO, BMP #### [address] Complete Blood Count Auto Di ffon 05-22-2022 Basophils (Bld) [#/Vol] 0.1 10*3/uL Normal 0.0-0.2 [facility] Comment on above: Result Comment: PERF ORMED BY: [place] [address] PATHOLOGIST PRODUCT MARKETER SESAR VAUGHN M.D. Performed By: #### R ENAL, CBC #### [place] [address] [place] Basophils/100 WBC (Bld) 0.6 % Normal . [facility] Comment on above: Performed By: #### R ENAL, CBC #### [place] [address] [place] Eosinophils (Bld) [#/Vol] 0.1 10*3/uL Normal 0.0-0.45 [facility] Comment on above: Performed By: #### R ENAL, CBC #### [place] [address] [place] Eosinophils/100 WBC (Bld) 0.8 % Normal . [facility] Comment on above: Performed By: #### R LYNETTE CBC #### [address] Erythrocyte distribution width (RBC) [Ratio] 15.4 % High 12.0-14.8 [facility] Comment on above: Performed By: #### R LYNETTE CBC #### [address] Hematocrit (Bld) [Volume fraction] 25.9 % Low 38.8-50.0 [facility] Comment on above: Performed By: #### R LYNETTE CBC #### [address] Hemoglobin (Bld) [Mass/Vol] 8.6 g/dL Low 13.0-17.0 [facility] Comment on above: Performed By: #### Iesha OJEDA CBC #### [address] Lymphocytes (Bld) [#/Vol] 0.6 10*3/uL Low 1.00-4.8 [facility] Comment on above: Performed By: #### Iesha OJEDA CBC #### [address] Lymphocytes/100 WBC (Bld) 7.4 % Normal . [facility] Comment on above: Performed By: #### R LYNETTE, CBC #### [address] MCH (RBC) [Entitic mass] 27.3 pg Low 27.5-35.2 [facility] Comment on above: Performed By: #### R LYNETTE, CBC #### [address] MCV (RBC) [Entitic vol] 81.7 fL Low 83.5-101 [facility] Comment on above: Performed By: #### R LYNETTE CBC #### [address] Mean Corpuscular HGB Conc 33.4 g/dL Normal 32.5-35.6 [facility] Comment on above: Performed By: #### R LYNETTE, CBC #### [facility] [address] Monocytes (Bld) [#/Vol] 0.7 10*3/uL Normal 0.0-0.8 [facility] Comment on above: Performed By: #### R LYNETTE, CBC #### [facility] [address] Monocytes/100 WBC (Bld) 7.6 % Normal . [facility] Comment on above: Performed By: #### R LYNETTE, CBC #### [address] Neutrophils (Bld) [#/Vol] 7.3 10*3/uL Normal 1.8-7.7 [facility] Comment on above: Performed By: #### R LYNETTE, CBC #### [address] Neutrophils/100 WBC (Bld) 83.6 % Normal . [facility] Comment on above: Performed By: #### R LYNETTE, CBC #### [address] NRBC% 0.0 /100{WBC} Normal 0-0.5 [facility] Comment on above: Performed By: #### R LYNETTE, CBC #### [address] Platelet mean volume (Bld) [Entitic vol] 9.3 fL Normal 6.6-10.1 [facility] Comment on above: Performed By: #### R LYNETTE, CBC #### [address] Platelets (Bld) [#/Vol] 174 10*3/uL Normal 150-450 [facility] Comment on above: Performed By: #### R LYNETTE, CBC #### [address] RBC (Bld) [#/Vol] 3.17 10*6/uL Low 3.90-5.60 [facility] Comment on above: Performed By: #### R ENAL, CBC #### [facility] [address] WBC (Bld) [#/Vol] 8.7 10*3/uL Normal 4.1-10.5 [facility] Comment on above: Performed By: #### R ENAL, CBC #### [facility] [address] Glucose Poct Glucometerson 0 05-22-2022 Glucose [Mass/Vol] 157 mg/dL Normal [facility] Comment on above: Result Comment: [place] Glucose Reference Range is dependent on time and content of last meal. Glucose of more than 200 mg/dL in a nonstressed, ambulatory subject supports the diagnosis of Diabetes Mellitus. PERFORMED BY: [place] [address] PATHOLOGIST PRODUCT MARKETER SESAR VAUGHN M.D. Performed By: #### C RP #### [address] Glucose [Mass/Vol] 164 mg/dL Normal [facility] Comment on above: Result Comment: [place] om Glucose Reference Range is dependent on time and content of last meal. Glucose of more than 200 mg/dL in a nonstressed, ambulatory subject supports the diagnosis of Diabetes Mellitus. PERFORMED BY: [place] [address] PATHOLOGIST PRODUCT MARKETER SESAR VAUGHN M.D. Performed By: #### G LULS #### Point of Care testing , Glucose [Mass/Vol] 126 mg/dL Normal [facility] Comment on above: Result Comment: [place] Glucose Reference Range is dependent on time and content of last meal. Glucose of more than 200 mg/dL in a nonstressed, ambulatory subject supports the diagnosis of Diabetes Mellitus. PERFORMED BY: [place] [address] PATHOLOGIST PRODUCT MARKETER SESAR VAUGHN M.D. Performed By: #### C BCNO, BMP #### [facility] [address] Commemt1 Glu2: Cleaned Meter Normal [facility] Comment on above: Result Comment: PERF ORMED BY: [address] [place] [address] PATHOLOGIST PRODUCT MARKETER SESAR VAUGHN M.D. Performed By: #### G LULS #### Point of Care testing , Glucose [Mass/Vol] 84 mg/dL Normal [facility] Comment on above: Result Comment: [facility] Glucose Reference Range is dependent on time and content of last meal. Glucose of more than 200 mg/dL in a nonstressed, ambulatory subject supports the diagnosis of Diabetes Mellitus. Performed By: #### G LULS #### Point of Care testing , Renal Function Panelon 05-22 Albumin [Mass/Vol] 1.7 g/dL Low 3.2-5.5 [facility] Comment on above: Performed By: #### R ENAL, CBC #### [facility] [address] Anion gap [Moles/Vol] 12.4 mmol/L Normal 6.0-15.0 [facility] Comment on above: Performed By: #### R ENAL, CBC #### [facility] [address] [place] [address] [place] Calcium [Mass/Vol] 7.5 mg/dL Low 8.2-10.2 [facility] Comment on above: Performed By: #### R ENAL, CBC #### [facility] [address] [place] [address] [place] Chloride [Moles/Vol] 103 mmol/L Normal 95-114 [facility] Comment on above: Performed By: #### R ENAL, CBC #### [facility] [address] [place] [address] [place] CO2 [Moles/Vol] 19.9 mmol/L Low 22.0-30.0 [facility] Comment on above: Performed By: #### R ENAL, CBC #### [facility] [address] [place] [address] [place] Creatinine [Mass/Vol] 4.75 mg/dL High 0.64-1.27 [facility] Comment on above: Performed By: #### R ENAL, CBC #### [facility] [address] [place] [address] [place] Creatinine Clr Calc Pharmacy 20.48 [facility] Comment on above: Result Comment: PERF ORMED BY: [facility] [address] [place] [address] PATHOLOGIST PRODUCT MARKETER SESAR VAUGHN M.D. Performed By: #### R ENAL, CBC #### [address] Estimated GFR ( Wendy 15 [facility] Comment on above: Result Comment: GFR estimated reference range: According to KDOQI guidelines, <60 ml/min/1.73m2 is sufficient to diagnose a patient with chronic kidney disease. Performed By: #### R ENAL, CBC #### [facility] [address] [place] [address] [place] Estimated GFR (Non- Am 13 [facility] Comment on above: Performed By: #### R ENAL, CBC #### [address] Glucose [Mass/Vol] 78 mg/dL Normal 70-100 [facility] Comment on above: Result Comment: [place] Glucose Reference Range is dependent on time and content of last meal. Glucose of more than 200 mg/dL in a nonstressed, ambulatory subject supports the diagnosis of Diabetes Mellitus. ADA recommended reference range Performed By: #### R ENAL, CBC #### [facility] [address] Phosphate [Mass/Vol] 4.5 mg/dL Normal 2.5-4.6 [facility] Comment on above: Performed By: #### R ENAL, CBC #### [place] [address] [place] Potassium [Moles/Vol] 4.3 mmol/L Normal 3.5-5.1 [facility] Comment on above: Performed By: #### R ENAL, CBC #### [facility] [address] [place] [address] Sodium [Moles/Vol] 131 mmol/L Low 136-146 [facility] Comment on above: Performed By: #### R ENAL, CBC #### [facility] [address] Urea nitrogen [Mass/Vol] 69 mg/dL High 9-23 [facility] Comment on above: Performed By: #### R ENAL, CBC #### [facility] [address] [place] [address] Vancomycin,Randomon 05-23-19 Vancomycin,Random 12.1 ug/mL Normal 5.0-20.0 [facility] Comment on above: Order Comment: Date of last dose?: 20220520 Time of last dose?: 1699 Result Comment: Last dose: - PERFORMED BY: [place] [address] PATHOLOGIST PRODUCT MARKETER SESAR VAUGHN M.D. Performed By: #### C RP #### [address] ABO/Rh Retypeon 05-21-2022 ABO/RH Recheck Result Positive Normal [facility] Comment on above: Result Comment: PERF ORMED BY: [place] [address] PATHOLOGIST PRODUCT MARKETER SESAR VAUGHN M.D. Aerobic Cultureon 05-21-2022 Aerobic Culture No Growth 2 Days ORGANISM: Bacteroides fragilis (O:BACFRA) Comments Sent to [facility] for Sensitivity Testing Quantity of Growth Light Growth See report. Scanned copy available in EMR. Gram Stain Result Rare Gram Negative Bacilli Rare White Blood Cells PERFORMED BY: [place] [address] PATHOLOGIST PRODUCT MARKETER SESAR VAUGHN M.D. [facility] Comment on above: Performed By: #### G LULS #### Point of Care testing , Aerobic cultureOrdered By: Hortencia Luis on 05-21-2022 Bacteria identified Aer cx Nom (Unsp spec) No Growth 2 Days [facility] Bacteria identified Aer cx Nom (Unsp spec) No Growth 2 Days [facility] Bacteria identified Anaer cx Nom (Unsp spec)Ordered By: CWS Primo Luis on 05-21-2022 Anaerobic Culture Bacteroides fragilis [facility] Bacterial susceptibility melo el MARCELO (Isol)on 05-21-2022 Microorganism identified Cx Nom (Unsp spec) [id number] Abnormal [facility] [place] Comment on above: Order Comment: Speci men Type: MICROBIAL ISOLATEOrdering Facility: [facility] Address: [address] [place] [address] Result Comment: Bact eroides fragilis Identification performed by client. Bacteroides spp. are intrinsically resistant to ampicillin, penicillin, and aminoglycosides. Performed By: #### 5 0545-3, 39540-3 ####[facility] LABCLIA [id number] [address] STATES OF [facility] Bacterial susceptibility melo el Strip (Isol)on 05-21-2022 Ampicillin+Sulbactam [Susc] 8 Susceptible Susceptible <=8 , Intermediate >8 , Resistant >16 [facility] [place] Comment on above: Order Comment: Order ing Facility: [facility] Address: [address] [place] [address] Performed By: #### 5 0545-3, 25252-8 ####[facility] LABCLIA [id number] [address] [place] Ertapenem MARCELO [Susc] 2 Susceptible Suscept ible <=4 , Intermediate >4 , Resistant >8 [facility] [place] Comment on above: Order Comment: Order ing Facility: [facility] Address: [address] [place] [address] Performed By: #### 5 0545-3, 05227-4 ####[facility] LABCLIA [id number] [place] [address] [place] metroNIDAZOLE [Susc] 0.064 Susceptible Suscept ible <=8 , Intermediate >8 , Resistant >16 [facility] [place] Comment on above: Order Comment: Order ing Facility: [facility] Address: [address] [place], [place] [address] Performed By: #### 5 0545-3, 08753-0 ####[facility] LABCLIA [id number] [place] [id number] [facility] [place] CT biopsyOrdered By: Cristobal bauer on 05-21-2022 Transferrin [Mass/Vol] 74 mg/dL 180-380 [facility] Complete Blood Count Auto Di ffon 05-21-2022 Basophils (Bld) [#/Vol] 0.0 10*3/uL Normal 0.0-0.2 [facility] Comment on above: Result Comment: PERF ORMED BY: [place] [address] PATHOLOGIST PRODUCT MARKETER SESAR VAUGHN M.D. Performed By: #### C BCNO, BMP #### [facility] [address] [place] [address] Basophils/100 WBC (Bld) 0.4 % Normal . [facility] Comment on above: Performed By: #### C BCNO, BMP #### [facility] [address] [place] [address] Eosinophils (Bld) [#/Vol] 0.1 10*3/uL Normal 0.0-0.45 [facility] Comment on above: Performed By: #### C BCNO, BMP #### [facility] [address] [place] [address] [place] Eosinophils/100 WBC (Bld) 0.8 % Normal . [facility] Comment on above: Performed By: #### C BCNO, BMP #### [facility] [address] [place] [address] Erythrocyte distribution width (RBC) [Ratio] 15.1 % High 12.0-14.8 [facility] Comment on above: Performed By: #### C BCNO, BMP #### [facility] [address] Hematocrit (Bld) [Volume fraction] 23.5 % Low 38.8-50.0 [facility] Comment on above: Performed By: #### C BCNO, BMP #### [facility] [address] Hemoglobin (Bld) [Mass/Vol] 7.7 g/dL Low 13.0-17.0 [facility] Comment on above: Performed By: #### C BCNO, BMP #### [facility] [address] Lymphocytes (Bld) [#/Vol] 0.5 10*3/uL Low 1.00-4.8 [facility] Comment on above: Performed By: #### C BCNO, BMP #### [address] Lymphocytes/100 WBC (Bld) 6.7 % Normal . [facility] Comment on above: Performed By: #### C BCNO, BMP #### [facility] [address] MCH (RBC) [Entitic mass] 26.8 pg Low 27.5-35.2 [facility] Comment on above: Performed By: #### C BCNO, BMP #### [facility] [address] MCV (RBC) [Entitic vol] 81.6 fL Low 83.5-101 [facility] Comment on above: Performed By: #### C BCNO, BMP #### [facility] [address] Mean Corpuscular HGB Conc 32.8 g/dL Normal 32.5-35.6 [facility] Comment on above: Performed By: #### C BCNO, BMP #### [facility] [address] Monocytes (Bld) [#/Vol] 0.8 10*3/uL Normal 0.0-0.8 [facility] Comment on above: Performed By: #### C BCNO, BMP #### [facility] [address] [place] [address] [place] Monocytes/100 WBC (Bld) 11.5 % Normal . [facility] Comment on above: Performed By: #### C BCNO, BMP #### [facility] [address] [place] [address] [place] Neutrophils (Bld) [#/Vol] 5.6 10*3/uL Normal 1.8-7.7 [facility] Comment on above: Performed By: #### C BCNO, BMP #### [facility] [address] [place] [address] [place] Neutrophils/100 WBC (Bld) 80.6 % Normal . [facility] Comment on above: Performed By: #### C BCNO, BMP #### [facility] [address] [place] [address] [place] NRBC% 0.1 /100{WBC} Normal 0-0.5 [facility] Comment on above: Performed By: #### C BCNO, BMP #### [facility] [address] [place] [address] [place] Platelet mean volume (Bld) [Entitic vol] 9.4 fL Normal 6.6-10.1 [facility] Comment on above: Performed By: #### C BCNO, BMP #### [facility] [address] [place] [address] [place] Platelets (Bld) [#/Vol] 157 10*3/uL Normal 150-450 [facility] Comment on above: Performed By: #### C BCNO, BMP #### [facility] [address] [place] [id number] [place] RBC (Bld) [#/Vol] 2.88 10*6/uL Low 3.90-5.60 [facility] Comment on above: Performed By: #### C BCNO, BMP #### [facility] [address] [place] [address] [place] WBC (Bld) [#/Vol] 7.0 10*3/uL Normal 4.1-10.5 [facility] Comment on above: Performed By: #### C BCNO, BMP #### [facility] [address] [place] [address] [place] Ferritinon 05-21-2022 Ferritin [Mass/Vol] 757.4 ng/mL High 23.9-336.2 [facility] Comment on above: Result Comment: PERF ORMED BY: [facility] [address] [place] [address] PATHOLOGIST PRODUCT MARKETER SESAR VAUGHN M.D. Performed By: #### F ER, FE and TIBC ####[facility] Emg[address] Ferritin [Mass/volume] in Se rum or PlasmaOrdered By: Cristobal Butts on 05-21-2022 Ferritin [Mass/Vol] 757.4 ng/mL 23.9-336.2 [facility] Glucose Poct Glucometerson 0 05-21-2022 Commemt1 Glu2: Cleaned Meter Normal [facility] Comment on above: Result Comment: PERF ORMED BY: [facility] [address] [place] [address] PATHOLOGIST PRODUCT MARKETER SESAR VAUGHN M.D. Performed By: #### C RP #### [facility] [address] Glucose [Mass/Vol] 77 mg/dL Normal [facility] Comment on above: Result Comment: [facility] Glucose Reference Range is dependent on time and content of last meal. Glucose of more than 200 mg/dL in a nonstressed, ambulatory subject supports the diagnosis of Diabetes Mellitus. Performed By: #### C RP #### [facility] [address] [place] [address] [place] Glucose [Mass/Vol] 80 mg/dL Normal [facility] Comment on above: Result Comment: [place] Glucose Reference Range is dependent on time and content of last meal. Glucose of more than 200 mg/dL in a nonstressed, ambulatory subject supports the diagnosis of Diabetes Mellitus. PERFORMED BY: [facility] [address] [place] [address] PATHOLOGIST PRODUCT MARKETER SESAR VAUGHN M.D. Performed By: #### C CASE, BMP #### [facility] [address] Glucose [Mass/Vol] 192 mg/dL Normal [facility] Comment on above: Result Comment: [place] om Glucose Reference Range is dependent on time and content of last meal. Glucose of more than 200 mg/dL in a nonstressed, ambulatory subject supports the diagnosis of Diabetes Mellitus. PERFORMED BY: [place] [address] PATHOLOGIST PRODUCT MARKETER SESAR VAUGHN M.D. Performed By: #### C CASE, BMP #### [facility] [address] Glucose [Mass/Vol] 96 mg/dL Normal [facility] Comment on above: Result Comment: [place] om Glucose Reference Range is dependent on time and content of last meal. Glucose of more than 200 mg/dL in a nonstressed, ambulatory subject supports the diagnosis of Diabetes Mellitus. PERFORMED BY: [place] [address] PATHOLOGIST PRODUCT MARKETER SESAR VAUGHN M.D. Performed By: #### C RP #### [facility] [address] Gram stain for investigation of transfusion reactionOrdered By: PHILLIP Luis on 05-21-2022 Microscopic observation Gram stain Nom (Unsp spec) [facility] Microscopic observation Gram stain Nom (Unsp spec) [facility] Iron [Mass/volume] in Serum or PlasmaOrdered By: Cristobal Butts on 05-21-2022 Iron [Mass/Vol] 20 ug/dL 40-160 [facility] Iron and TIBC Profileon % Iron Saturation 19.2 % Low 20-50 [facility] Comment on above: Performed By: #### F ER, FE and TIBC ####[facility] [place] [address] [place] Iron [Mass/Vol] 20 ug/dL Low 40-160 [facility] Comment on above: Performed By: #### F ER, FE and TIBC ####[facility] Tcn[address] Total Iron Binding Capacity 104 ug/dL Low 255-450 [facility] Comment on above: Performed By: #### F ER, FE and TIBC ####[facility] Sew[address] [place] [id number] [facility] Transferrin [Mass/Vol] 74 mg/dL Low 180-380 [facility] Comment on above: Performed By: #### F ER, FE and TIBC ####[facility] Onn[address] Iron binding capacity [Mass/ volume] in Serum or PlasmaOrdered By: Cristobal Butts on 05-21-2022 Iron binding capacity [Mass/Vol] 104 ug/dL 255-450 [facility] Iron saturation [Mass Fracti on] in Serum or PlasmaOrdered By: Cristobal Butts on 05-21-2022 Iron saturation [Mass fraction] 19.2 % 20-50 [facility] Stewart 05-21-2022 L --- Specimen: [id number] Received: 05/22/22 Status: ANSELMO Gonzales Num: [id number] Spec Type: Surgical Subm Dr: Primo Luis,DPM, MS, CWS Tissues: A DIGIT 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 Pre Planning Advisor are submitted following decalcification in two cassettes labeled A1-A2. Microscopic Description Two glass slides with H E stained material have been examined. The microscopic findings support the above pathologic diagnosis. Specimen: [id number] Received: 05/22/22 Status: ANSELMO Vivasyancy Num: [id number] Spec Type: Surgical Subm Dr: Primo Luis,DPM, MS, CWS Tissues: A DIGIT AMPUTATION (4TH RT TOE) Procedures: HE/2, Gross/Micro L4, Decalcification Patient: Gopal Yates Jr [id number] (Continued) Specimen: [id number] Received: 05/22/22 (Continued) Signed (signature on file) Dee Nogueira MD 05/25/22 1200 Specimen: [id number] Received: 05/22/22 Status: ANSELMO Gonzales Num: [id number] Spec Type: Surgical Subm Dr: Primo Luis,DPM, MS, CWS Tissues: A DIGIT AMPUTATION (4TH RT TOE) Procedures: HE/2, Gross/Micro L4, Decalcification Patient: Gopal Yates Jr [id number] (Continued) Specimen: [id number] Received: 05/22/22 (Continued) CPT Codes 30339, 20859 Specimen: [id number] Received: 05/22/22 Status: ANSELMO Gonzales Num: [id number] Spec Type: Surgical Subm Dr: Primo Luis,DPM, MS, CWS Tissues: A DIGIT AMPUTATION (4TH RT TOE) Procedures: HE/2, Gross/Micro L4, Decalcification Patient: Gopal Yates Jr [id number] (Continued) Signed (signature on file) Dee Nogueira MD 05/25/22 1200 [facility] LeukoReduced RBCon 3 LeukoReduced RBC TRANSFUSED 05/21/22 1251 [facility] MR foot RT wo conon 05-22-19 23 MR foot RT wo [address] [address] MRI Report Signed Patient: NicolásGopal Jr MR#: [id number] : 1965 Acct:[id number] Age/Sex: 56 / M ADM Date: 05/20/22 Loc: Room: [address] [place] [address] Type: ADM IN Attending Dr: Salvador Alonso [...] Flynn Bradley M.D.05/21/2022 10:03 AM Dictation Location: [place] [address] Transcribed By: [facility] 05/21/22 1003 Dictated By: Flynn Bradley II, MD 05/21/22 0954 Signed By: 05/21/22 1003 Normal [facility] Renal Function Panelon 05-21 Albumin [Mass/Vol] 1.7 g/dL Low 3.2-5.5 [facility] Comment on above: Performed By: #### C RP #### [facility] [address] Anion gap [Moles/Vol] 13.3 mmol/L Normal 6.0-15.0 [facility] Comment on above: Performed By: #### C RP #### [facility] 1111 [place] [address] [place] Calcium [Mass/Vol] 7.5 mg/dL Low 8.2-10.2 [facility] Comment on above: Performed By: #### C RP #### [facility] [address] [place] [address] [place] Chloride [Moles/Vol] 102 mmol/L Normal 95-114 [facility] Comment on above: Performed By: #### C RP #### [address] CO2 [Moles/Vol] 19.7 mmol/L Low 22.0-30.0 [facility] Comment on above: Performed By: #### C RP #### [address] Creatinine [Mass/Vol] 5.24 mg/dL High 0.64-1.27 [facility] Comment on above: Performed By: #### C RP #### [address] Creatinine Clr Calc Pharmacy 18.57 [facility] Comment on above: Result Comment: PERF ORMED BY: [place] [address] PATHOLOGIST PRODUCT MARKETER SESAR VAUGHN M.D. Performed By: #### C RP #### [address] Estimated GFR ( Wendy 14 [facility] Comment on above: Result Comment: GFR estimated reference range: According to KDOQI guidelines, <60 ml/min/1.73m2 is sufficient to diagnose a patient with chronic kidney disease. Performed By: #### C RP #### [address] Estimated GFR (Non- Am 11 [facility] Comment on above: Performed By: #### C RP #### [address] Glucose [Mass/Vol] 86 mg/dL Normal 70-100 [facility] Comment on above: Result Comment: [place] Glucose Reference Range is dependent on time and content of last meal. Glucose of more than 200 mg/dL in a nonstressed, ambulatory subject supports the diagnosis of Diabetes Mellitus. ADA recommended reference range Performed By: #### C RP #### [address] Phosphate [Mass/Vol] 5.3 mg/dL High 2.5-4.6 [facility] Comment on above: Performed By: #### C RP #### [address] [place] [address] [place] Potassium [Moles/Vol] 4.0 mmol/L Normal 3.5-5.1 [facility] Comment on above: Performed By: #### C RP #### [facility] [address] Sodium [Moles/Vol] 131 mmol/L Low 136-146 [facility] Comment on above: Performed By: #### C RP #### [facility] [address] Urea nitrogen [Mass/Vol] 72 mg/dL High 9-23 [facility] Comment on above: Performed By: #### C RP #### [facility] [address] Type and Screenon 05-21-2022 ABO and Rh group Nom (Bld) Blood group A Rh(D) positive Normal [facility] Comment on above: Order Comment: Trans fuse now? Y Number of units to transfuse now? 1 Result Comment: PERF ORMED BY: [place] [address] PATHOLOGIST PRODUCT MARKETER SESAR VAUGHN M.D. Activated partial thrombopla stin time (aPTT) in platelet poor plasma by coagulation aOrdered By: Gopal Larsen on 05-20-2022 aPTT Coag (PPP) [Time] 30.7 s 25.1-36.5 [facility] Albumin [Mass/volume] in Ser um or PlasmaOrdered By: Gopal Larsen on 05-20-2022 Albumin [Mass/Vol] 1.8 g/dL 3.2-5.5 [facility] Alkaline phosphatase [Enzyma tic activity/volume] in Serum or PlasmaOrdered By: Gopal Larsen on 05-20-2022 ALP [Catalytic activity/Vol] 169 U/L 32-92 [facility] Aspartate aminotransferase [ Enzymatic activity/volume] in Serum or PlasmaOrdered By: Gopal Larsen on 05-20-2022 AST [Catalytic activity/Vol] 95 U/L 10-42 [facility] Bacterial blood cultureOrder ed By: Gopal Larsen on 05-20-2022 Bacteria identified Cx Nom (Bld) NO GROWTH 5 DAYS [facility] Bacteria identified Cx Nom (Bld) NO GROWTH 5 DAYS [facility] Basophils Auto (Bld) [#/Vol] Ordered By: Gopal Larsen on 05-20-2022 Basophils (Bld) [#/Vol] 0.1 10*3/uL 0.0-0.2 [facility] Basophils/100 WBC Auto (Bld) Ordered By: Gopal Larsen on 05-20-2022 Basophils/100 WBC (Bld) 0.8 % . [facility] Bilirubin.total [Mass/volume ] in Serum or PlasmaOrdered By: Gopal Larsen on 05-20-2022 Bilirubin [Mass/Vol] 1.1 mg/dL 0.3-1.2 [facility] Blood Cultureon 05-20-2022 Bacteria identified Cx Nom (Bld) NO GROWTH 5 DAYS PERFORMED BY: [place] [address] PATHOLOGIST PRODUCT MARKETER SESAR VAUGHN M.D. Normal [facility] Comment on above: Performed By: #### C UBLD ####[place] [id number] [facility] Performed By: #### G LULS #### Point of Care testing , C reactive protein [Mass/vol ume] in Serum or PlasmaOrdered By: Salvador Alonso on 05-20-2022 CRP [Mass/Vol] 15.2 mg/dL 0.0-1.0 [facility] C-Reactive Proteinon 023 C-Reactive Protein 15.2 mg/dL High 0.0-1.0 [facility] Comment on above: Result Comment: PERF ORMED BY: [place] [address] PATHOLOGIST PRODUCT MARKETER SESAR VAUGHN M.D. Performed By: #### C RP, ESR ####[address] chest wo conon 05-20-2022 CT chest wo con [facility] [address] [place] [id number] Scan Report Signed Patient: Gopal Yates Jr MR#: [id number] : 1965 Acct:[id number] Age/Sex: 56 / M ADM Date: 05/20/22 Loc: ER Room: Type: [facility] ER Attending Dr: Copies to: Gopal [...] mass. Impression dictated by: Armando Macias Jr., D.O.05/20/2022 12:30 PM Dictation Location: [place] [address] Transcribed By: [facility] 05/20/22 1230 Dictated By: Armando Macias Jr, DO 05/20/22 1226 Signed By: 05/20/22 1230 [facility] Calcium [Mass/volume] in Ser um or PlasmaOrdered By: Gopal Larsen on 05-20-2022 Calcium [Mass/Vol] 7.7 mg/dL 8.2-10.2 [facility] Carbon dioxide, total [Moles /volume] in Serum or PlasmaOrdered By: Gopal Larsen on 05-20-2022 CO2 [Moles/Vol] 19.9 mmol/L 22.0-30.0 [facility] Chloride [Moles/volume] in S yulissa or PlasmaOrdered By: Gopal Larsen on 05-20-2022 Chloride [Moles/Vol] 101 mmol/L 95-114 [facility] Complete Blood Count Auto Di ffon 05-20-2022 Basophils (Bld) [#/Vol] 0.1 10*3/uL Normal 0.0-0.2 [facility] Comment on above: Result Comment: PERF ORMED BY: [facility] [address] [place] [address] PATHOLOGIST PRODUCT MARKETER SESAR VAUGHN M.D. Performed By: #### G LULS #### Point of Care testing , Basophils/100 WBC (Bld) 0.8 % Normal . [facility] Comment on above: Performed By: #### G LULS #### Point of Care testing , Eosinophils (Bld) [#/Vol] 0.0 10*3/uL Normal 0.0-0.45 [facility] Comment on above: Performed By: #### G LULS #### Point of Care testing , Eosinophils/100 WBC (Bld) 0.2 % Normal . [facility] Comment on above: Performed By: #### G LULS #### Point of Care testing , Erythrocyte distribution width (RBC) [Ratio] 14.9 % High 12.0-14.8 [facility] Comment on above: Performed By: #### G LULS #### Point of Care testing , Hematocrit (Bld) [Volume fraction] 25.4 % Low 38.8-50.0 [facility] Comment on above: Performed By: #### G LULS #### Point of Care testing , Hemoglobin (Bld) [Mass/Vol] 8.4 g/dL Low 13.0-17.0 [facility] Comment on above: Performed By: #### G LULS #### Point of Care testing , Lymphocytes (Bld) [#/Vol] 0.3 10*3/uL Low 1.00-4.8 [facility] Comment on above: Performed By: #### G LULS #### Point of Care testing , Lymphocytes/100 WBC (Bld) 3.3 % Normal . [facility] Comment on above: Performed By: #### G LULS #### Point of Care testing , MCH (RBC) [Entitic mass] 27.2 pg Low 27.5-35.2 [facility] Comment on above: Performed By: #### G LULS #### Point of Care testing , MCV (RBC) [Entitic vol] 81.9 fL Low 83.5-101 [facility] Comment on above: Performed By: #### G LULS #### Point of Care testing , Mean Corpuscular HGB Conc 33.2 g/dL Normal 32.5-35.6 [facility] Comment on above: Performed By: #### G LULS #### Point of Care testing , Monocytes (Bld) [#/Vol] 0.8 10*3/uL Normal 0.0-0.8 [facility] Comment on above: Performed By: #### G LULS #### Point of Care testing , Monocytes/100 WBC (Bld) 21.96 % High 0.00-20.00 [facility] Comment on above: Result Comment: For adults in ED, MDW > 20.0 may be associated with a higher risk of sepsis during the first 12 hrs of hospital admission Performed By: #### G LULS #### Point of Care testing , Monocytes/100 WBC (Bld) 8.7 % Normal . [facility] Comment on above: Performed By: #### G LULS #### Point of Care testing , Neutrophils (Bld) [#/Vol] 8.0 10*3/uL High 1.8-7.7 [facility] Comment on above: Performed By: #### G LULS #### Point of Care testing , Neutrophils/100 WBC (Bld) 87.0 % Normal . [facility] Comment on above: Performed By: #### Lily NOEL #### Point of Care testing , NRBC% 0.1 /100{WBC} Normal 0-0.5 [facility] Comment on above: Performed By: #### Lily NOEL #### Point of Care testing , Platelet mean volume (Bld) [Entitic vol] 9.3 fL Normal 6.6-10.1 [facility] Comment on above: Performed By: #### Lily NOEL #### Point of Care testing , Platelets (Bld) [#/Vol] 165 10*3/uL Normal 150-450 [facility] Comment on above: Performed By: #### Lily NOEL #### Point of Care testing , RBC (Bld) [#/Vol] 3.10 10*6/uL Low 3.90-5.60 [facility] Comment on above: Performed By: #### Lily NOEL #### Point of Care testing , WBC (Bld) [#/Vol] 9.2 10*3/uL Normal 4.1-10.5 [facility] Comment on above: Performed By: #### Lily NOEL #### Point of Care testing , Comprehensive Metabolic Pane stewart 05-20-2022 Albumin [Mass/Vol] 1.8 g/dL Low 3.2-5.5 [facility] Comment on above: Performed By: #### Lily NOEL #### Point of Care testing , Albumin/Globulin [Mass ratio] 0.4 {ratio} Normal [facility] Comment on above: Performed By: #### Lily NEOL #### Point of Care testing , ALP [Catalytic activity/Vol] 169 U/L High 32-92 [facility] Comment on above: Performed By: #### Lily NOEL #### Point of Care testing , ALT [Catalytic activity/Vol] 64 U/L High 10-60 [facility] Comment on above: Performed By: #### Lily NOEL #### Point of Care testing , Anion gap [Moles/Vol] 15.9 mmol/L High 6.0-15.0 [facility] Comment on above: Performed By: #### G LULS #### Point of Care testing , AST [Catalytic activity/Vol] 95 U/L High 10-42 [facility] Comment on above: Performed By: #### G LULS #### Point of Care testing , Bilirubin [Mass/Vol] 1.1 mg/dL Normal 0.3-1.2 [facility] Comment on above: Performed By: #### G LULS #### Point of Care testing , Calcium [Mass/Vol] 7.7 mg/dL Low 8.2-10.2 [facility] Comment on above: Performed By: #### G LULS #### Point of Care testing , Chloride [Moles/Vol] 101 mmol/L Normal 95-114 [facility] Comment on above: Performed By: #### G LULS #### Point of Care testing , CO2 [Moles/Vol] 19.9 mmol/L Low 22.0-30.0 [facility] Comment on above: Performed By: #### G LULS #### Point of Care testing , Creatinine [Mass/Vol] 5.50 mg/dL High 0.64-1.27 [facility] Comment on above: Performed By: #### G LULS #### Point of Care testing , Creatinine Clr Calc Pharmacy 18.19 [facility] Comment on above: Result Comment: PERF ORMED BY: [facility] [address] [place] [address] PATHOLOGIST PRODUCT MARKETER SESAR VAUGHN M.D. Performed By: #### G LULS #### Point of Care testing , Estimated GFR ( Wendy 13 [facility] Comment on above: Result Comment: GFR estimated reference range: According to KDOQI guidelines, <60 ml/min/1.73m2 is sufficient to diagnose a patient with chronic kidney disease. Performed By: #### G LULS #### Point of Care testing , Estimated GFR (Non- Am 11 [facility] Comment on above: Performed By: #### G LULS #### Point of Care testing , Globulin (S) [Mass/Vol] 4.7 g/dL Normal [facility] Comment on above: Performed By: #### G LULS #### Point of Care testing , Glucose [Mass/Vol] 110 mg/dL High 70-100 [facility] Comment on above: Result Comment: [place] Glucose Reference Range is dependent on time and content of last meal. Glucose of more than 200 mg/dL in a nonstressed, ambulatory subject supports the diagnosis of Diabetes Mellitus. ADA recommended reference range Performed By: #### G LULS #### Point of Care testing , Potassium [Moles/Vol] 4.8 mmol/L Normal 3.5-5.1 [facility] Comment on above: Performed By: #### G LULS #### Point of Care testing , Protein [Mass/Vol] 6.5 g/dL Normal 6.1-7.9 [facility] Comment on above: Performed By: #### G LULS #### Point of Care testing , Sodium [Moles/Vol] 132 mmol/L Low 136-146 [facility] Comment on above: Performed By: #### G LULS #### Point of Care testing , Urea nitrogen [Mass/Vol] 77 mg/dL High 9-23 [facility] Comment on above: Performed By: #### G LULS #### Point of Care testing , Creatinine and Glomerular fi ltration rate.predicted panel (S/P/Bld)Ordered By: Gopal Larsen on 05-20-2022 Creatinine [Mass/Vol] 5.50 mg/dL 0.64-1.27 [facility] ECG 12 lead ECGon 05-20-2022 ECG 12 lead ECG [facility] [place] [address] Electrocardiograph Report Signed Patient: Gopal Yates Jr MR#: [id number] : 1965 Acct:[id number] Age/Sex: 56 / M ADM Date: 05/20/22 Loc: Room: [address] [place] [address] Type: ADM IN Attending Dr: Salvador Alonso [...] By Gopal Larsen MD 05/20/22 193 Normal [facility] Eosinophils Auto (Bld) [#/Vo l]Ordered By: Gopal Larsen on 05-20-2022 Eosinophils (Bld) [#/Vol] 0.0 10*3/uL 0.0-0.45 [facility] Eosinophils/100 WBC Auto (Bl d)Ordered By: Gopal Larsen on 05-20-2022 Eosinophils/100 WBC (Bld) 0.2 % . [facility] Erythrocyte Sedimentation Ra cindy 05-20-2022 ESR (Bld) [Velocity] 88 mm/h High 0-19 [facility] Comment on above: Result Comment: PERF ORMED BY: [facility] [address] [place] [address] PATHOLOGIST PRODUCT MARKETER SESAR VAUGHN M.D. Performed By: #### C RP, ESR ####[facility] [id number] [place] [id number] [facility] Erythrocyte distribution wid th Auto (RBC) [Ratio]Ordered By: Gpoal Larsne on 05-20-2022 Erythrocyte distribution width (RBC) [Ratio] 14.9 % 12.0-14.8 [facility] Erythrocyte sedimentation ra te by Photometric methodOrdered By: Salvador Alonso on 05-20-2022 ESR Photometric method (Bld) [Velocity] 88 mm/hr 0-19 [facility] Estimated glomerular filtrat ion rate (GFR) non- AmericanOrdered By: Gopal Larsen on 05-20-2022 GFR/1.73 sq M.predicted among non-blacks MDRD (S/P/Bld) [Vol rate/Area] 11 mL/Min [facility] Globulin Calc (S) [Mass/Vol] Ordered By: Gopal Larsen on 05-20-2022 Globulin (S) [Mass/Vol] 4.7 g/dL [facility] Glucose [Mass/volume] in Ser um or PlasmaOrdered By: Gopal Larsen on 05-20-2022 Glucose [Mass/Vol] 110 mg/dL 70-100 [facility] Comment on above: ADA recommended refe rence rangeRandom Glucose Reference Range is dependent on time and content of last meal. Glucose of more than 200 mg/dL in a nonstressed, ambulatory subject supports the diagnosis of Diabetes Mellitus. Hematocrit Auto (Bld) [Volum e fraction]Ordered By: Gopal Larsen on 05-20-2022 Hematocrit (Bld) [Volume fraction] 25.4 % 38.8-50.0 [facility] Hemoglobin [Mass/volume] in BloodOrdered By: Gopal Larsen on 05-20-2022 Hemoglobin (Bld) [Mass/Vol] 8.4 g/dL 13.0-17.0 [facility] Laboratory - CoagulationOrde red By: Gopal Larsen on 05-20-2022 PT Coag (PPP) [Time] 15.3 s 9.0-12.9 [facility] Lactic Acidon 05-20-2022 Lactate [Moles/Vol] 1.8 mmol/L Normal 0.5-2.2 [facility] Comment on above: Result Comment: PERF ORMED BY: [place] [address] PATHOLOGIST PRODUCT MARKETER SESAR VAUGHN M.D. Performed By: #### C RP #### [address] Leukocytes [#/volume] correc annalisa for nucleated erythrocytes in Blood by Automated counOrdered By: Gopal Larsen on 05-20-2022 WBC corrected for nucl RBC Auto (Bld) [#/Vol] 9.2 10*3/uL 4.1-10.5 [facility] Lymphocytes Auto (Bld) [#/Vo l]Ordered By: Gopal Larsen on 05-20-2022 Lymphocytes (Bld) [#/Vol] 0.3 10*3/uL 1.00-4.8 [facility] Lymphocytes/100 WBC Auto (Bl d)Ordered By: Gopal Larsen on 05-20-2022 Lymphocytes/100 WBC (Bld) 3.3 % . [facility] MCH Auto (RBC) [Entitic mass ]Ordered By: Gopal Larsen on 05-20-2022 MCH (RBC) [Entitic mass] 27.2 pg 27.5-35.2 [facility] MCHC Auto (RBC) [Mass/Vol]Or dered By: Gopal Larsen on 05-20-2022 MCHC (RBC) [Mass/Vol] 33.2 g/dL 32.5-35.6 [facility] MCV Auto (RBC) [Entitic vol] Ordered By: Gopal Larsen on 05-20-2022 MCV (RBC) [Entitic vol] 81.9 fL 83.5-101 [facility] Monocyte distribution width [Entitic volume] in Blood by AutomatedOrdered By: Gopal Larsen on 05-20-2022 Monocyte distribution width Auto (Bld) [Entitic vol] 21.96 % 0.00-20.00 [facility] Comment on above: For adults in ED, MD W > 20.0 may be associated with a higher risk of sepsis during the first 12 hrs of hospital admission Monocytes Auto (Bld) [#/Vol] Ordered By: Gopal Larsen on 05-20-2022 Monocytes (Bld) [#/Vol] 0.8 10*3/uL 0.0-0.8 [facility] Monocytes/100 WBC Auto (Bld) Ordered By: Gopal Larsen on 05-20-2022 Monocytes/100 WBC (Bld) 8.7 % . [facility] Neutrophils Auto (Bld) [#/Vo l]Ordered By: Gopal Larsen on 05-20-2022 Neutrophils (Bld) [#/Vol] 8.0 10*3/uL 1.8-7.7 [facility] Neutrophils/100 WBC Auto (Bl d)Ordered By: Gopal Larsen on 05-20-2022 Neutrophils/100 WBC (Bld) 87.0 % . [facility] No Panel InformationOrdered By: Gopal Larsen on 05-20-2022 Estimated GFR () 13 mL/Min [facility] Comment on above: GFR estimated refere nce range: According to KDOQI guidelines, <60 ml/min/1.73m2 is sufficient to diagnose a patient with chronic kidney disease. Pharmacy Creatinine Clearance (Chem 18.19 [facility] Nucleated erythrocytes [Pres ence] in Blood by Automated countOrdered By: Gopal Larsen on 05-20-2022 Nucleated RBC Auto Ql (Bld) 0.1 /100{WBC} 0-0.5 [facility] Partial Thromboplastin Timeo n 05-20-2022 aPTT Coag (Bld) [Time] 30.7 s Normal 25.1-36.5 [facility] Comment on above: Result Comment: PERF ORMED BY: [facility] [address] [place] [address] PATHOLOGIST PRODUCT MARKETER SESAR VAUGHN M.D. Performed By: #### G BERT #### Point of Care testing , Platelet mean volume Auto (B ld) [Entitic vol]Ordered By: Gopal Larsen on 05-20-2022 Platelet mean volume (Bld) [Entitic vol] 9.3 fL 6.6-10.1 [facility] Platelet poor plasma interna tional normalized ratio (INR) by coagulation assay (relatOrdered By: Gopal Larsen on 05-20-2022 INR Coag (PPP) [Relative time] 1.3 {INR} [facility] Comment on above: INR Therapeutic Rang [...] 05-20-2022 Platelets (Bld) [#/Vol] 165 10*3/uL 150-450 [facility] Potassium [Moles/volume] in Serum or PlasmaOrdered By: Gopal Larsen on 05-20-2022 Potassium [Moles/Vol] 4.8 mmol/L 3.5-5.1 [facility] Protein [Mass/volume] in Ser um or PlasmaOrdered By: Gopal Larsen on 05-20-2022 Protein [Mass/Vol] 6.5 g/dL 6.1-7.9 [facility] Prothrombin Time INRon 05-20 INR Coag (PPP) [Relative time] 1.3 {INR} Normal [facility] Comment on above: Result Comment: INR [...] Coag (PPP) [Time] 15.3 s High 9.0-12.9 [facility] Comment on above: Performed By: #### G LULS #### Point of Care testing , RBC Auto (Bld) [#/Vol]Ordere d By: Gopal Larsen on 05-20-2022 RBC (Bld) [#/Vol] 3.10 10*6/uL 3.90-5.60 [facility] Serum or plasma alanine hayes otransferase measurement without P-5'-P (enzymatic activiOrdered By: Gopal Larsen on 05-20-2022 ALT No additional P-5'-P [Catalytic activity/Vol] 64 U/L 10-60 [facility] Serum or plasma albumin/glob ulin mass ratioOrdered By: Gopal Larsen on 05-20-2022 Albumin/Globulin [Mass ratio] 0.4 {ratio} [facility] Serum or plasma anion gap de terminationOrdered By: Gopal Larsen on 05-20-2022 Anion gap [Moles/Vol] 15.9 mmol/L 6.0-15.0 [facility] Sodium [Moles/volume] in Ser um or PlasmaOrdered By: Gopal Larsen on 05-20-2022 Sodium [Moles/Vol] 132 mmol/L 136-146 [facility] Superficial Wound Cultureon 05-20-2022 Superficial Wound Culture Light Normal Skin Efren 2 Days PERFORMED BY: [facility] [address] [place] [address] PATHOLOGIST PRODUCT MARKETER SESAR VAUGHN M.D. [facility] Comment on above: Performed By: #### C USUP ####[facility] [id number] [place] [id number] [facility] Urea nitrogen [Mass/volume] in Serum or PlasmaOrdered By: Gopal Larsen on 05-20-2022 Urea nitrogen [Mass/Vol] 77 mg/dL 12-12 [facility] Urine lactic acid measuremen tOrdered By: Gopal Larsen on 05-20-2022 Lactate (U) [Moles/Vol] 1.8 mmol/L 0.5-2.2 [facility] WBC Auto (Bld) [#/Vol]Ordere d By: Gopal Larsen on 05-20-2022 WBC (Bld) [#/Vol] 9.2 10*3/uL 4.1-10.5 [facility] XR chest 1V portableon 05-20 XR chest 1V portable [facility] [address] [place] [address] XRay Report Signed Patient: Gopal Yates Jr MR#: [id number] : 1965 Acct:[id number] Age/Sex: 56 / M ADM Date: 05/20/22 Loc: ER Room: Type: [facility] ER Attending Dr: Copies to: Gopal [...] Flynn Bradley M.D.05/20/2022 11:02 AM Dictation Location: [place] [address] Transcribed By: [facility] 05/20/22 1102 Dictated By: Flynn Bradley II, MD 05/20/22 1059 Signed By: 05/20/22 1102 Normal [facility] XR foot RT 2Von 05-20-2022 XR foot RT 2V [facility] [place] [place] [address] XRay Report Signed Patient: Gopal Yates Jr MR#: [id number] : 1965 Acct:[id number] Age/Sex: 56 / M ADM Date: 05/20/22 Loc: ER Room: Type: [facility] ER Attending Dr: Copies to: Gopal [...] Flynn Bradley M.D.05/20/2022 11:04 AM Dictation Location: [place] [address] Transcribed By: [facility] 05/20/22 1104 Dictated By: Flynn Bradley II, MD 05/20/22 1102 Signed By: 05/20/22 1104 [facility] Aerobic cultureOrdered By: Hortencia Griggs on 05-19-2022 Bacteria identified Aer cx Nom (Unsp spec) 2 Days [facility] Bacteria identified Aer cx Nom (Unsp spec) 2 Days [facility] Superficial Wound Cultureon 05-19-2022 Superficial Wound Culture Rare normal skin efren 2 Days PERFORMED BY: [place] [address] PATHOLOGIST PRODUCT MARKETER SESAR VUAGHN M.D. [facility] Comment on above: Performed By: #### C RP #### [address] Basophils Auto (Bld) [#/Vol] Ordered By: Cornelio Simon on 05-08-2022 Basophils (Bld) [#/Vol] 0.1 10*3/uL 0.0-0.2 [facility] Basophils/100 WBC Auto (Bld) Ordered By: Cornelio Simon on 05-08-2022 Basophils/100 WBC (Bld) 0.6 % . [facility] Creatinine and Glomerular fi ltration rate.predicted panel (S/P/Bld)Ordered By: Cornelio Simon on 05-08-2022 Creatinine [Mass/Vol] 5.34 mg/dL 0.64-1.27 [facility] Eosinophils Auto (Bld) [#/Vo l]Ordered By: Cornelio Simon on 05-08-2022 Eosinophils (Bld) [#/Vol] 0.1 10*3/uL 0.0-0.45 [facility] Eosinophils/100 WBC Auto (Bl d)Ordered By: Cornelio Simon on 05-08-2022 Eosinophils/100 WBC (Bld) 0.7 % . [facility] Erythrocyte distribution wid th Auto (RBC) [Ratio]Ordered By: Cornelio Simon on 05-08-2022 Erythrocyte distribution width (RBC) [Ratio] 14.3 % 12.0-14.8 [facility] Estimated glomerular filtrat ion rate (GFR) non- AmericanOrdered By: Cornelio Simon on 05-08-2022 GFR/1.73 sq M.predicted among non-blacks MDRD (S/P/Bld) [Vol rate/Area] 11 mL/Min [facility] Hematocrit Auto (Bld) [Volum e fraction]Ordered By: Cornelio Simon on 05-08-2022 Hematocrit (Bld) [Volume fraction] 27.0 % 38.8-50.0 [facility] Hemoglobin [Mass/volume] in BloodOrdered By: Cornelio Simon on 05-08-2022 Hemoglobin (Bld) [Mass/Vol] 9.1 g/dL 13.0-17.0 [facility] Leukocytes [#/volume] correc annalisa for nucleated erythrocytes in Blood by Automated counOrdered By: Cornelio Simon on 05-08-2022 WBC corrected for nucl RBC Auto (Bld) [#/Vol] 9.8 10*3/uL 4.1-10.5 [facility] Lymphocytes Auto (Bld) [#/Vo l]Ordered By: Cornelio Simon on 05-08-2022 Lymphocytes (Bld) [#/Vol] 0.4 10*3/uL 1.00-4.8 [facility] Lymphocytes/100 WBC Auto (Bl d)Ordered By: Corneliojose Simon on 05-08-2022 Lymphocytes/100 WBC (Bld) 4.0 % . [facility] MCH Auto (RBC) [Entitic mass ]Ordered By: Cornelio Simon on 05-08-2022 MCH (RBC) [Entitic mass] 27.8 pg 27.5-35.2 [facility] MCHC Auto (RBC) [Mass/Vol]Or dered By: Cornelio Simon on 05-08-2022 MCHC (RBC) [Mass/Vol] 33.6 g/dL 32.5-35.6 [facility] MCV Auto (RBC) [Entitic vol] Ordered By: Cornelio Simon on 05-08-2022 MCV (RBC) [Entitic vol] 82.5 fL 83.5-101 [facility] Monocytes Auto (Bld) [#/Vol] Ordered By: Cornelio Simon on 05-08-2022 Monocytes (Bld) [#/Vol] 0.9 10*3/uL 0.0-0.8 [facility] Monocytes/100 WBC Auto (Bld) Ordered By: Cornelio Simon on 05-08-2022 Monocytes/100 WBC (Bld) 9.6 % . [facility] Neutrophils Auto (Bld) [#/Vo l]Ordered By: Cornelio Simon on 05-08-2022 Neutrophils (Bld) [#/Vol] 8.3 10*3/uL 1.8-7.7 [facility] Neutrophils/100 WBC Auto (Bl d)Ordered By: Cornelio Simon on 05-08-2022 Neutrophils/100 WBC (Bld) 85.1 % . [facility] No Panel InformationOrdered By: Cornelio Simon on 05-08-2022 Estimated GFR () 13 mL/Min [facility] Comment on above: GFR estimated refere nce range: According to KDOQI guidelines, <60 ml/min/1.73m2 is sufficient to diagnose a patient with chronic kidney disease. Pharmacy Creatinine Clearance (Chem 18.74 [facility] Nucleated erythrocytes [Pres ence] in Blood by Automated countOrdered By: Cornelio Simon on 05-08-2022 Nucleated RBC Auto Ql (Bld) 0.3 /100{WBC} 0-0.5 [facility] Platelet mean volume Auto (B ld) [Entitic vol]Ordered By: Cornelio Simon on 05-08-2022 Platelet mean volume (Bld) [Entitic vol] 9.2 fL 6.6-10.1 [facility] Platelets Auto (Bld) [#/Vol] Ordered By: Cornelio Simon on 05-08-2022 Platelets (Bld) [#/Vol] 168 10*3/uL 150-450 [facility] RBC Auto (Bld) [#/Vol]Ordere d By: Cornelio Simon on 05-08-2022 RBC (Bld) [#/Vol] 3.27 10*6/uL 3.90-5.60 [facility] Serum or plasma anion gap de terminationOrdered By: Cornelio Simon on 05-08-2022 Anion gap [Moles/Vol] 10.5 mmol/L 6.0-15.0 [facility] Serum or plasma calcium bertha urement (mass/volume)Ordered By: Cornelio Simon on 05-08-2022 Calcium [Mass/Vol] 7.3 mg/dL 8.2-10.2 [facility] Serum or plasma chloride neto surement (moles/volume)Ordered By: Cornelio Simon on 05-08-2022 Chloride [Moles/Vol] 104 mmol/L 95-114 [facility] Serum or plasma glucose bertha urement (mass/volume)Ordered By: Cornelio Simon on 05-08-2022 Glucose [Mass/Vol] 100 mg/dL 70-100 [facility] Comment on above: ADA recommended refe rence rangeRandom Glucose Reference Range is dependent on time and content of last meal. Glucose of more than 200 mg/dL in a nonstressed, ambulatory subject supports the diagnosis of Diabetes Mellitus. Serum or plasma potassium me asurement (moles/volume)Ordered By: Cornelio Simon on 05-08-2022 Potassium [Moles/Vol] 3.7 mmol/L 3.5-5.1 [facility] Serum or plasma sodium measu rement (moles/volume)Ordered By: Cornelio Simon on 05-08-2022 Sodium [Moles/Vol] 133 mmol/L 136-146 [facility] Serum or plasma total carbon dioxide measurement (moles/volume)Ordered By: Cornelio Simon on 05-08-2022 CO2 [Moles/Vol] 22.2 mmol/L 22.0-30.0 [facility] [facility] Serum or plasma urea nitroge n measurement (mass/volume)Ordered By: Cornelio Simon on 05-08-2022 Urea nitrogen [Mass/Vol] 80 mg/dL 9-23 [facility] WBC Auto (Bld) [#/Vol]Ordere d By: Cornelio Simon on 05-08-2022 WBC (Bld) [#/Vol] 9.8 10*3/uL 4.1-10.5 [facility] Aerobic cultureOrdered By: Hortencia Griggs on 05-07-2022 Bacteria identified Aer cx Nom (Unsp spec) No Growth 2 Days [facility] Bacteria identified Aer cx Nom (Unsp spec) No Growth 2 Days [facility] Bacteria identified Anaer cx Nom (Unsp spec)Ordered By: Eddy Griggs on 05-07-2022 Anaerobic Culture Bacteroides fragilis [facility] Anaerobic Culture Bacteroides fragilis [facility] Glucose Glucometer (BldC) [M ass/Vol]Ordered By: Cornelio Simon on 05-07-2022 Glucose [Mass/Vol] 193 mg/dL [facility] Comment on above: Random Glucose Refer ence Range is dependent on time and content of last meal. Glucose of more than 200 mg/dL in a nonstressed, ambulatory subject supports the diagnosis of Diabetes Mellitus. Gram stain for investigation of transfusion reactionOrdered By: Eddy Griggs on 05-07-2022 Microscopic observation Gram stain Nom (Unsp spec) [facility] Microscopic observation Gram stain Nom (Unsp spec) [facility] No Panel InformationOrdered By: Cornelio Simon on 05-07-2022 Bedside Glucose Comment Glu2: cleaned meter [facility] Activated partial thrombopla stin time (aPTT) in platelet poor plasma by coagulation aOrdered By: Cornelio Simon on 05-06-2022 aPTT Coag (PPP) [Time] 38.6 s 25.1-36.5 [facility] Albumin [Mass/volume] in Ser um or PlasmaOrdered By: Cornelio Simon on 05-06-2022 Albumin [Mass/Vol] 2.2 g/dL 3.2-5.5 [facility] CT biopsyOrdered By: Bruce kee on 05-06-2022 Transferrin [Mass/Vol] 89 mg/dL 180-380 [facility] Cholesterol [Mass/volume] in Serum or PlasmaOrdered By: Cornelio Simon on 05-06-2022 Cholesterol [Mass/Vol] 63 mg/dL 140-200 [facility] Comment on above: Chol less than 200 m g/dl low riskChol 201-239 mg/dl borderline riskChol 240 mg/dl and greater high risk Cholesterol in LDL Calc [Mas s/Vol]Ordered By: Cornelio Simon on 05-06-2022 Cholesterol in LDL [Mass/Vol] 28 mg/dL 0-100 [facility] Comment on above: LDL ATP III CLASSIFI CATIONLDL less than 100 mg/dL OptimalLDL 100-129 mg/dL Near or above optimalLDL 130-159 mg/dL Borderline highLDL 160-189 mg/dL HighLDL greater than 189 mg/dL Very high Cholesterol in VLDL Calc [Ma ss/Vol]Ordered By: Cornelio Simon on 05-06-2022 Cholesterol in VLDL [Mass/Vol] 16 mg/dL [facility] Ferritin [Mass/volume] in Se rum or PlasmaOrdered By: Yvonne Barboza on 05-06-2022 Ferritin [Mass/Vol] 426.1 ng/mL 23.9-336.2 [facility] Folate [Mass/volume] in Seru m or PlasmaOrdered By: Yvonne Barboza on 05-06-2022 Folate [Mass/Vol] 13.4 ng/mL >5.9 [facility] Comment on above: Folate reference ran ge: >5.9 ng/mlThe WHO technical consultation on folate and vitamin [id number] has determined that folate concentrations lessthan 4 ng/ml are considered deficient. Globulin Calc (S) [Mass/Vol] Ordered By: Cornelio Simon on 05-06-2022 Globulin (S) [Mass/Vol] 4.1 g/dL [facility] Glucose mean value [Mass/vol ume] in Blood Estimated from glycated hemoglobinOrdered By: Cornelio Simon on 05-06-2022 Average glucose Estimated from glycated hemoglobin (Bld) [Mass/Vol] 114 mg/dL [facility] Hemoglobin A1c percentageOrd ered By: Cornelio Simon on 05-06-2022 HbA1c (Bld) [Mass fraction] 5.6 % 4.3-5.6 [facility] Comment on above: Increased risk for d iabetes: 5.7 - 6.4diabetes: >6.4glycemic control for adults with diabetes: <7.0 Iron [Mass/volume] in Serum or PlasmaOrdered By: Yvonne Barboza on 05-06-2022 Iron [Mass/Vol] 15 ug/dL 40-160 [facility] Iron binding capacity [Mass/ volume] in Serum or PlasmaOrdered By: Yvonne Barboza on 05-06-2022 Iron binding capacity [Mass/Vol] 125 ug/dL 255-450 [facility] Iron saturation [Mass Fracti on] in Serum or PlasmaOrdered By: Yvonne Barboza on 05-06-2022 Iron saturation [Mass fraction] 12.0 % 20-50 [facility] Laboratory - Chemistry and C hemistry - challengeOrdered By: Yvonne Barboza on 05-06-2022 Cobalamin (Vitamin B12) [Mass/Vol] 373 pg/mL 180-914 [facility] - CoagulationOrde red By: Cornelio Simon on 05-06-2022 PT Coag (PPP) [Time] 16.0 s 9.0-12.9 [facility] Platelet poor plasma interna tional normalized ratio (INR) by coagulation assay (relatOrdered By: Cornelio Simon on 05-06-2022 INR Coag (PPP) [Relative time] 1.4 {INR} [facility] Comment on above: INR Therapeutic Rang [...] on 05-06-2022 Protein [Mass/Vol] 6.3 g/dL 6.1-7.9 [facility] Serum or plasma alanine hayes otransferase measurement without P-5'-P (enzymatic activiOrdered By: Cornelio Simon on 05-06-2022 ALT No additional P-5'-P [Catalytic activity/Vol] 23 U/L 10-60 [facility] Serum or plasma albumin/glob ulin mass ratioOrdered By: Cornelio Simon on 05-06-2022 Albumin/Globulin [Mass ratio] 0.5 {ratio} [facility] Serum or plasma alkaline brain sphatase measurement (enzymatic activity/volume)Ordered By: Cornelio Simon on 05-06-2022 ALP [Catalytic activity/Vol] 137 U/L 32-92 [facility] Serum or plasma aspartate am inotransferase measurement (enzymatic activity/volume)Ordered By: Cornelio Simon on 05-06-2022 AST [Catalytic activity/Vol] 28 U/L 10-42 [facility] Serum or plasma high density lipoprotein (HDL) cholesterol measurementOrdered By: Cornelio Simon 05-06-2022 Cholesterol in HDL [Mass/Vol] 18 mg/dL 29-71 [facility] Comment on above: HDL CHOL ATP-III CLA SSIFICATION Cardiovascular RiskHDL > or equal to 60 mg/dL LOWHDL < 40 mg/dL HIGH Serum or plasma total biliru bin measurement (mass/volume)Ordered By: Cornelio Simon on 05-06-2022 Bilirubin [Mass/Vol] 1.0 mg/dL 0.3-1.2 [facility] Serum or plasma total choles terol/high density lipoprotein (HDL) cholesterol mass ratOrdered By: Cornelio Simon on 05-06-2022 Cholesterol.total/Nelly sterol in HDL [Mass ratio] 3.5 {ratio} <5.0 [facility] Triglyceride [Mass/volume] i n Serum or PlasmaOrdered By: Cornelio Simon on 05-06-2022 Triglyceride [Mass/Vol] 83 mg/dL 35-149 [facility] Comment on above: TRIG ATP III CLASSIF ICATIONTRIG less than 150 mg/dL NormalTRIG 150-199 mg/dL Borderline highTRIG 200-500 mg/dL High TRIG greater than 500 mg/dL Very highStandard traceable to the Center for Disease Conrtrol and Prevention (CDC) test method. Albumin [Mass/volume] in Ser um or PlasmaOrdered By: Lambert Blacn on 05-05-2022 Albumin [Mass/Vol] 2.6 g/dL 3.2-5.5 [facility] Bacterial blood cultureOrder ed By: Lambert Blanc on 05-05-2022 Bacteria identified Cx Nom (Bld) NO GROWTH 5 DAYS [facility] Bacteria identified Cx Nom (Bld) NO GROWTH 5 DAYS [facility] Bacterial susceptibility melo el MARCELO (Isol)on 05-05-2022 Microorganism identified Cx Nom (Unsp spec) [id number] Abnormal [facility] [place] Comment on above: Order Comment: Speci men Type: MICROBIAL ISOLATEOrdering Facility: [facility] Address: [address] [place] [id number] Result Comment: Bact eroides fragilis group Specifically Bacteroides fragilis,as identified by client. Bacteroides spp. are intrinsically resistant to ampicillin, penicillin, and aminoglycosides. Performed By: #### 5 0545-3, 13582-1 ####[facility] LABCLIA [id number] [place] [address] [place] Bacterial susceptibility melo el Strip (Isol)on 05-05-2022 Ampicillin+Sulbactam [Susc] 8 Susceptible Susceptible <=8 , Intermediate >8 , Resistant >16 [facility] [place] Comment on above: Order Comment: Order ing Facility: [facility] Address: [address] [place] [id number] Performed By: #### 5 0545-3, 45612-6 ####[facility] LABCLIA [id number] [address] [place] Ertapenem MARCELO [Susc] 0.25 Susceptible Suscept ible <=4 , Intermediate >4 , Resistant >8 [facility] [place] Comment on above: Order Comment: Order ing Facility: [facility] Address: [address] [place] [address] Performed By: #### 5 0545-3, 27694-6 ####[facility] LABCLIA [id number] [address] [place] [facility] metroNIDAZOLE [Susc] 0.125 Susceptible Suscept ible <=8 , Intermediate >8 , Resistant >16 [facility] [place] Comment on above: Order Comment: Order ing Facility: [facility] Address: [address] [place] [address] Performed By: #### 5 0545-3, 10595-2 ####[facility] LABCLIA [id number] [address] [place] Basophils Auto (Bld) [#/Vol] Ordered By: Lambert Blanc on 05-05-2022 Basophils (Bld) [#/Vol] 0.0 10*3/uL 0.0-0.2 [facility] Basophils/100 WBC Auto (Bld) Ordered By: Lambert Blanc on 05-05-2022 Basophils/100 WBC (Bld) 0.0 % . [facility] C reactive protein [Mass/vol ume] in Serum or PlasmaOrdered By: Lambert Blanc on 05-05-2022 CRP [Mass/Vol] 12.5 mg/dL 0.0-1.0 [facility] Creatinine and Glomerular fi ltration rate.predicted panel (S/P/Bld)Ordered By: Lambert Blanc on 05-05-2022 Creatinine [Mass/Vol] 6.13 mg/dL 0.64-1.27 [facility] Eosinophils Auto (Bld) [#/Vo l]Ordered By: Lambert Blanc on 05-05-2022 Eosinophils (Bld) [#/Vol] 0.0 10*3/uL 0.0-0.45 [facility] Eosinophils/100 WBC Auto (Bl d)Ordered By: Lambert Blanc on 05-05-2022 Eosinophils/100 WBC (Bld) 0.2 % . [facility] Erythrocyte distribution wid th Auto (RBC) [Ratio]Ordered By: Lambert Blanc on 05-05-2022 Erythrocyte distribution width (RBC) [Ratio] 14.2 % 12.0-14.8 [facility] Erythrocyte sedimentation ra te by Photometric methodOrdered By: Lambert Blanc on 05-05-2022 ESR Photometric method (Bld) [Velocity] 119 mm/hr 0-19 [facility] Estimated glomerular filtrat ion rate (GFR) non- AmericanOrdered By: Lambert Blanc on 05-05-2022 GFR/1.73 sq M.predicted among non-blacks MDRD (S/P/Bld) [Vol rate/Area] 10 mL/Min [facility] Globulin Calc (S) [Mass/Vol] Ordered By: Lambert Blanc on 05-05-2022 Globulin (S) [Mass/Vol] 4.6 g/dL [facility] Hematocrit Auto (Bld) [Volum e fraction]Ordered By: Lambert Blanc on 05-05-2022 Hematocrit (Bld) [Volume fraction] 31.8 % 38.8-50.0 [facility] Hemoglobin [Mass/volume] in BloodOrdered By: Lambert Blanc on 05-05-2022 Hemoglobin (Bld) [Mass/Vol] 10.4 g/dL 13.0-17.0 [facility] Leukocytes [#/volume] correc annalisa for nucleated erythrocytes in Blood by Automated counOrdered By: Lambert Blanc on 05-05-2022 WBC corrected for nucl RBC Auto (Bld) [#/Vol] 11.9 10*3/uL 4.1-10.5 [facility] Lymphocytes Auto (Bld) [#/Vo l]Ordered By: Lambert Blanc on 05-05-2022 Lymphocytes (Bld) [#/Vol] 0.4 10*3/uL 1.00-4.8 [facility] Lymphocytes/100 WBC Auto (Bl d)Ordered By: Lambert Blanc on 05-05-2022 Lymphocytes/100 WBC (Bld) 3.2 % . [facility] MCH Auto (RBC) [Entitic mass ]Ordered By: Lambert Blanc on 05-05-2022 MCH (RBC) [Entitic mass] 27.5 pg 27.5-35.2 [facility] MCHC Auto (RBC) [Mass/Vol]Or dered By: Lambert Blanc on 05-05-2022 MCHC (RBC) [Mass/Vol] 32.8 g/dL 32.5-35.6 [facility] MCV Auto (RBC) [Entitic vol] Ordered By: Lambert Blanc on 05-05-2022 MCV (RBC) [Entitic vol] 83.9 fL 83.5-101 [facility] Monocyte distribution width [Entitic volume] in Blood by AutomatedOrdered By: Lambert Blanc on 05-05-2022 Monocyte distribution width Auto (Bld) [Entitic vol] 18.26 % 0.00-20.00 [facility] Monocytes Auto (Bld) [#/Vol] Ordered By: Lambert Blanc on 05-05-2022 Monocytes (Bld) [#/Vol] 0.8 10*3/uL 0.0-0.8 [facility] Monocytes/100 WBC Auto (Bld) Ordered By: Lambert Blanc on 05-05-2022 Monocytes/100 WBC (Bld) 6.3 % . [facility] Neutrophils Auto (Bld) [#/Vo l]Ordered By: Lambert Blanc on 05-05-2022 Neutrophils (Bld) [#/Vol] 10.7 10*3/uL 1.8-7.7 [facility] Neutrophils/100 WBC Auto (Bl d)Ordered By: Lambert Blanc on 05-05-2022 Neutrophils/100 WBC (Bld) 90.3 % . [facility] No Panel InformationOrdered By: Lambert Blanc on 05-05-2022 Estimated GFR () 11 mL/Min [facility] Comment on above: GFR estimated refere nce range: According to KDOQI guidelines, <60 ml/min/1.73m2 is sufficient to diagnose a patient with chronic kidney disease. Pharmacy Creatinine Clearance (Chem 16.32 [facility] Nucleated erythrocytes [Pres ence] in Blood by Automated countOrdered By: Labmert Blanc on 05-05-2022 Nucleated RBC Auto Ql (Bld) 0.1 /100{WBC} 0-0.5 [facility] Platelet mean volume Auto (B ld) [Entitic vol]Ordered By: Lambert Blanc on 05-05-2022 Platelet mean volume (Bld) [Entitic vol] 9.6 fL 6.6-10.1 [facility] Platelets Auto (Bld) [#/Vol] Ordered By: Lambert Blanc on 05-05-2022 Platelets (Bld) [#/Vol] 189 10*3/uL 150-450 [facility] Protein [Mass/volume] in Ser um or PlasmaOrdered By: Lambert Blanc on 05-05-2022 Protein [Mass/Vol] 7.2 g/dL 6.1-7.9 [facility] RBC Auto (Bld) [#/Vol]Ordere d By: Lambert Blanc on 05-05-2022 RBC (Bld) [#/Vol] 3.79 10*6/uL 3.90-5.60 [facility] Serum or plasma alanine hayes otransferase measurement without P-5'-P (enzymatic activiOrdered By: Lambert Blanc on 05-05-2022 ALT No additional P-5'-P [Catalytic activity/Vol] 30 U/L 10-60 [facility] Serum or plasma albumin/glob ulin mass ratioOrdered By: Lambert Blanc on 05-05-2022 Albumin/Globulin [Mass ratio] 0.6 {ratio} [facility] Serum or plasma alkaline brain sphatase measurement (enzymatic activity/volume)Ordered By: Lambert Blanc on 05-05-2022 ALP [Catalytic activity/Vol] 167 U/L 32-92 [facility] Serum or plasma anion gap de terminationOrdered By: Lambert Blanc on 05-05-2022 Anion gap [Moles/Vol] 14.1 mmol/L 6.0-15.0 [facility] Serum or plasma aspartate am inotransferase measurement (enzymatic activity/volume)Ordered By: Lambert Blanc on 05-05-2022 AST [Catalytic activity/Vol] 45 U/L 10-42 [facility] Serum or plasma calcium bertha urement (mass/volume)Ordered By: Lambert Blanc on 05-05-2022 Calcium [Mass/Vol] 7.8 mg/dL 8.2-10.2 [facility] Serum or plasma chloride neto surement (moles/volume)Ordered By: Lambert Blanc on 05-05-2022 Chloride [Moles/Vol] 105 mmol/L 95-114 [facility] Serum or plasma glucose bertha urement (mass/volume)Ordered By: Lambert Blanc on 05-05-2022 Glucose [Mass/Vol] 106 mg/dL 70-100 [facility] Comment on above: ADA recommended refe rence rangeRandom Glucose Reference Range is dependent on time and content of last meal. Glucose of more than 200 mg/dL in a nonstressed, ambulatory subject supports the diagnosis of Diabetes Mellitus. Serum or plasma potassium me asurement (moles/volume)Ordered By: Lambert Blanc on 05-05-2022 Potassium [Moles/Vol] 4.1 mmol/L 3.5-5.1 [facility] Serum or plasma sodium measu rement (moles/volume)Ordered By: Lambert Blanc on 05-05-2022 Sodium [Moles/Vol] 132 mmol/L 136-146 [facility] Serum or plasma total biliru bin measurement (mass/volume)Ordered By: Lambert Blanc on 05-05-2022 Bilirubin [Mass/Vol] 0.9 mg/dL 0.3-1.2 [facility] Serum or plasma total carbon dioxide measurement (moles/volume)Ordered By: Lambert Blanc on 05-05-2022 CO2 [Moles/Vol] 17.0 mmol/L 22.0-30.0 [facility] Serum or plasma urea nitroge n measurement (mass/volume)Ordered By: Lambert Blanc on 05-05-2022 Urea nitrogen [Mass/Vol] 91 mg/dL 9-23 [facility] WBC Auto (Bld) [#/Vol]Ordere d By: Lambert Blanc on 05-05-2022 WBC (Bld) [#/Vol] 11.9 10*3/uL 4.1-10.5 [facility] CBC AUTO DIFFon 05-04-2022 BASO # 0.0 103/ul Normal 0.0-0.1 [facility] Comment on above: Performed By: #### V ITAD, FERR, FETIBC, B12FOL #### [facility] [address] [address] [address] Shilo Lam Basophils/100 WBC (Bld) 0.2 % Normal 0.2-2.0 [facility] Comment on above: Performed By: #### V ITAD, FERR, FETIBC, B12FOL #### [facility] [address] [place] [address] Dr. Shilo Lam EO # 0.0 103/ul Normal 0.0-0.7 [facility] Comment on above: Performed By: #### V ITAD, FERR, FETIBC, B12FOL #### [facility] [address] [place] [address] Dr. Shilo Lam Eosinophils/100 WBC (Bld) 0.1 % Critically low 0.9-7.0 [facility] Comment on above: Performed By: #### V ITAD, FERR, FETIBC, B12FOL #### [facility] [address] [place] [address] Dr. Shilo Lam Erythrocyte distribution width (RBC) [Ratio] 13.2 % Normal 11.0-15.0 [facility] Comment on above: Performed By: #### V ITAD, FERR, FETIBC, B12FOL #### [facility] [address] [place] [address] Dr. Shilo Lam Hematocrit (Bld) [Volume fraction] 32.2 % Critically low 42.0-54.0 [facility] Comment on above: Performed By: #### V ITAD, FERR, FETIBC, B12FOL #### [facility] [address] [place] [address] Dr. Shilo Lam Hemoglobin (Bld) [Mass/Vol] 10.6 g/dL Critically low 14.0-18.0 [facility] Comment on above: Performed By: #### V ITAD, FERR, FETIBC, B12FOL #### [facility] [address] [place] [address] Dr. Shilo Lam IG # 0.07 10e3/ul Critically high 0.00-0.03 [facility] Comment on above: Performed By: #### V ITAD, FERR, FETIBC, B12FOL #### [facility] [address] [place] [address] Dr. Shilo Lam IG % 0.5 % Normal 0.0-0.5 [facility] Comment on above: Performed By: #### V ITAD, FERR, FETIBC, B12FOL #### [facility] [address] [place] [address] Dr. Shilo Lam LYMPH # 0.4 103/ul Critically low 1.2-3.8 [facility] Comment on above: Performed By: #### V ITAD, FERR, FETIBC, B12FOL #### [facility] [address] [place] [address] Dr. Shilo Lam Lymphocytes/100 WBC (Bld) 2.6 % Critically low 20.5-60.0 [facility] Comment on above: Performed By: #### V ITAD, FERR, FETIBC, B12FOL #### [facility] [address] [place] [address] Dr. Shilo Lam MANUAL DIFF REQ NO Normal [facility] Comment on above: Performed By: #### V ITAD, FERR, FETIBC, B12FOL #### [facility] [address] [place] [address] Dr. Shilo Lam MCH (RBC) [Entitic mass] 27.7 pg Normal 25.9-34.0 [facility] Comment on above: Performed By: #### V ITAD, FERR, FETIBC, B12FOL #### [facility] [address] [place] [address] Dr. Shilo Lam MCHC (RBC) [Mass/Vol] 32.9 g/dL Normal 29.9-35.2 [facility] Comment on above: Performed By: #### V ITAD, FERR, FETIBC, B12FOL #### [facility] [address] [place] [address] Dr. Shilo Lam MCV (RBC) [Entitic vol] 84.1 fL Normal 80.0-94.0 [facility] Comment on above: Performed By: #### V ITAD, FERR, FETIBC, B12FOL #### [facility] [address] [place] [address] Dr. Shilo Lam MONO # 1.0 103/ul Critically high 0.3-0.8 [facility] Comment on above: Performed By: #### V ITAD, FERR, FETIBC, B12FOL #### [facility] [address] [place] [address] Dr. Shilo Lam Monocytes/100 WBC (Bld) 7.8 % Normal 1.7-12.0 [facility] Comment on above: Performed By: #### V ITAD, FERR, FETIBC, B12FOL #### [facility] [address] [place] [address] Dr. Shilo Lam NEUT # 11.9 103/ul Critically high 1.4-6.5 [facility] Comment on above: Performed By: #### V ITAD, FERR, FETIBC, B12FOL #### [facility] [address] [place] [address] Dr. Shilo Lma Neutrophils/100 WBC (Bld) 88.8 % Critically high 43.0-75.0 [facility] Comment on above: Performed By: #### V ITAD, FERR, FETIBC, B12FOL #### [facility] [address] [place] [address] Dr. Shilo Lam Platelet mean volume (Bld) [Entitic vol] 11.3 fL Normal 9.5-13.5 [facility] Comment on above: Performed By: #### V ITAD, FERR, FETIBC, B12FOL #### [facility] [address] [address] [address] Shilo Lam PLT 219 103/ul Normal 150-450 [facility] Comment on above: Performed By: #### V ITAD, FERR, FETIBC, B12FOL #### [facility] [address] [address] [address] Shilo Lam RBC 3.83 106/ul Critically low 4.70-6.10 [facility] Comment on above: Performed By: #### V ITAD, FERR, FETIBC, B12FOL #### [facility] [address] [address] [address] Shilo Lam WBC 13.4 103/ul Critically high 4.0-11.0 [facility] Comment on above: Performed By: #### V ITAD, FERR, FETIBC, B12FOL #### [facility] [address] [place] [address] Dr. Shilo Lam CRPon 05-04-2022 CRP 13.4 mg/dL Critically high <=1.0 [facility] Comment on above: Performed By: #### H H #### [facility] [address] [address] [address] Shilo Lam PROF 14(COMP METB)on 023 Albumin [Mass/Vol] 2.5 g/dL Critically low 3.4-5.0 [facility] Comment on above: Performed By: #### H H #### [facility] [address] [place] [address] Dr. Shilo Lam Albumin/Globulin [Mass ratio] 0.5 {ratio} Normal [facility] Comment on above: Performed By: #### H H #### [facility] [address] [place] [address] Dr. Shilo Lam ALP [Catalytic activity/Vol] 180 U/L Critically high 46-116 [facility] Comment on above: Performed By: #### H H #### [facility] [address] [address] [address] Shilo Lam ALT [Catalytic activity/Vol] 29 U/L Normal 16-63 [facility] Comment on above: Performed By: #### H H #### [facility] [address] [address] [address] Shilo Lam Anion gap [Moles/Vol] 21.5 mmol/L Normal [facility] Comment on above: Performed By: #### H H #### [facility] [address] [address] [address] Shilo Lam AST [Catalytic activity/Vol] 44 U/L Critically high 15-37 [facility] Comment on above: Performed By: #### H H #### [facility] [address] [address] [address] Shilo Lam Bilirubin [Mass/Vol] 0.7 mg/dL Normal 0.2-1.0 [facility] Comment on above: Performed By: #### H H #### [facility] [address] [address] [address] Shilo Lam Calcium [Mass/Vol] 8.1 mg/dL Critically low 8.5-10.1 [facility] Comment on above: Performed By: #### H H #### [facility] [address] [address] [address] Shilo Lam Chloride [Moles/Vol] 103 mmol/L Normal 98-107 [facility] Comment on above: Performed By: #### H H #### [facility] [address] [address] [address] Shilo Lam CO2 [Moles/Vol] 19.3 mmol/L Critically low 21.0-32.0 [facility] Comment on above: Performed By: #### H H #### [facility] [address] [address] [address] Shilo Lam Creatinine [Mass/Vol] 6.10 mg/dL Critically high 0.70-1.30 [facility] Comment on above: Performed By: #### H H #### [facility] [address] [address] [address] Shilo Lam EGFR-AF ROMANIAN 12 mL/min/1.73m2 Critically low >=60 [facility] Comment on above: Performed By: #### H H #### [facility] [address] [address] [address] Shilo Lam EGFR-NON AF ROMANIAN 10 mL/min/1.73m2 Critically low >=60 [facility] Comment on above: Performed By: #### H H #### [facility] [address] [address] [address] Shilo Lam Globulin (S) [Mass/Vol] 5.1 g/dL Normal [facility] Comment on above: Performed By: #### H H #### [facility] [address] [address] [address] Shilo Lam Glucose [Mass/Vol] 95 mg/dL Normal 74-106 [facility] Comment on above: Performed By: #### H H #### [facility] [address] [address] [address] Shilo Lam Potassium [Moles/Vol] 4.8 mmol/L Normal 3.5-5.1 [facility] Comment on above: Performed By: #### H H #### [facility] [address] [address] [address] Shilo Lam Protein [Mass/Vol] 7.6 g/dL Normal 6.4-8.2 [facility] Comment on above: Performed By: #### H H #### [facility] [address] [address] [address] Shilo Lam Sodium [Moles/Vol] 139 mmol/L Normal 136-145 [facility] Comment on above: Performed By: #### H H #### [facility] [address] [address] [address] Shilo Lam Urea nitrogen [Mass/Vol] 91.0 mg/dL Critically high 7.0-18.0 [facility] Comment on above: Performed By: #### H H #### [facility] [address] [address] [address] Shilo Lam Urea nitrogen/Creatinine [Mass ratio] 14.9 mg/mg Normal [facility] Comment on above: Performed By: #### H H #### [facility] [address] [place] [address] Dr. Shilo Lam SED RATE WESTERGRENon 2022 SED RATE 127 mm/hr Critically high <=20 [facility] Comment on above: Performed By: #### S EDR #### [facility] [address] [place] [address] Dr. Shilo Lam PTH INTACTon 04-30-2022 PTH, Intact 81 pg/mL Critically high 15-65 [facility] Comment on above: Performed By: #### F REELIT #### [facility] [address] [place] [address] Dr. Shilo Lam HEMOGRAM AND PLATELon 2022 Hematocrit (Bld) [Volume fraction] 35.3 % Critically low 42.0-54.0 [facility] Comment on above: Performed By: #### H H #### [facility] [address] [place] [address] Dr. Shilo Lam Hemoglobin (Bld) [Mass/Vol] 11.0 g/dL Critically low 14.0-18.0 [facility] Comment on above: Performed By: #### H H #### [facility] [address] [place] [address] Dr. Shilo Lam MCH (RBC) [Entitic mass] 28.2 pg Normal 25.9-34.0 [facility] Comment on above: Performed By: #### H H #### [facility] [address] [place] [address] Dr. Shilo Lam MCHC (RBC) [Mass/Vol] 31.2 g/dL Normal 29.9-35.2 [facility] Comment on above: Performed By: #### H H #### [facility] [address] [place] [address] Dr. Shilo Lam MCV (RBC) [Entitic vol] 90.5 fL Normal 80.0-94.0 [facility] Comment on above: Performed By: #### H H #### [facility] [address] [place] [address] Dr. Shilo Lam PLT 161 103/ul Normal 150-450 [facility] Comment on above: Performed By: #### H H #### [facility] [address] [place] [address] Dr. Shilo Lam RBC 3.90 106/ul Critically low 4.70-6.10 [facility] Comment on above: Performed By: #### H H #### [facility] [address] [place] [address] Dr. Shilo Lam WBC 7.0 103/ul Normal 4.0-11.0 [facility] Comment on above: Performed By: #### H H #### [facility] [address] [place] [address] Dr. Shilo Lam PHOSPHORUSon 04-29-2022 Phosphate [Mass/Vol] 5.6 mg/dL Critically high 2.6-4.7 [facility] Comment on above: Performed By: #### F ALTONT #### [facility] [address] [place] [address] Dr. Shilo Lam PROF 14(COMP METB)on 023 Albumin [Mass/Vol] 2.6 g/dL Critically low 3.4-5.0 Th [facility] Comment on above: Performed By: #### F ALTONT #### [facility] [address] [place] [address] Dr. Shilo Lam Albumin/Globulin [Mass ratio] 0.5 {ratio} Normal [facility] Comment on above: Performed By: #### F REELIT #### [facility] [address] [place] [address] Dr. Shilo Lam ALP [Catalytic activity/Vol] 190 U/L Critically high 46-116 [facility] Comment on above: Performed By: #### F REELIT #### [facility] [address] [place] [address] Dr. Shilo Lam ALT [Catalytic activity/Vol] 21 U/L Normal 16-63 [facility] Comment on above: Performed By: #### F KYLIELIT #### [facility] [address] [place] [address] Dr. Shilo Lam Anion gap [Moles/Vol] 17.3 mmol/L Normal [facility] Comment on above: Performed By: #### F REELIT #### [facility] [address] [address] [address] Shilo Lam AST [Catalytic activity/Vol] 28 U/L Normal 15-37 [facility] Comment on above: Performed By: #### F REELIT #### [facility] [address] [address] [address] Shilo Lam Bilirubin [Mass/Vol] 0.6 mg/dL Normal 0.2-1.0 [facility] Comment on above: Performed By: #### F REELIT #### [facility] [address] [place] [address] Dr. Shilo Lam Calcium [Mass/Vol] 7.8 mg/dL Critically low 8.5-10.1 [facility] Comment on above: Performed By: #### F REELIT #### [facility] [address] [place] [address] Dr. Shilo Lam Chloride [Moles/Vol] 103 mmol/L Normal 98-107 [facility] Comment on above: Performed By: #### F REELIT #### [facility] [address] [place] [address] Dr. Shilo Lam CO2 [Moles/Vol] 21.5 mmol/L Normal 21.0-32.0 [facility] Comment on above: Performed By: #### F REELIT #### [facility] [address] [place] [address] Dr. Shilo Lam Creatinine [Mass/Vol] 5.86 mg/dL Critically high 0.70-1.30 [facility] Comment on above: Performed By: #### F REELIT #### [facility] [address] [place] [address] Dr. Shilo Lam EGFR-AF ROMANIAN 12 mL/min/1.73m2 Critically low >=60 [facility] Comment on above: Performed By: #### F REELIT #### [facility] [address] [address] [address] Shilo Lam EGFR-NON AF ROMANIAN 10 mL/min/1.73m2 Critically low >=60 [facility] Comment on above: Performed By: #### F REELIT #### [facility] [address] [address] [address] Shilo Lam Globulin (S) [Mass/Vol] 4.8 g/dL Normal [facility] Comment on above: Performed By: #### F REELIT #### [facility] [address] [place] [address] Dr. Shilo Lam Glucose [Mass/Vol] 107 mg/dL Critically high 74-106 [facility] Comment on above: Performed By: #### F REELIT #### [facility] [address] [place] [address] Dr. Shilo Lam Potassium [Moles/Vol] 3.8 mmol/L Normal 3.5-5.1 [facility] Comment on above: Performed By: #### F REELIT #### [facility] [address] [place] [address] Dr. Shilo Lam Protein [Mass/Vol] 7.4 g/dL Normal 6.4-8.2 [facility] Comment on above: Performed By: #### F REELIT #### [facility] [address] [place] [address] Dr. Shilo Lam Sodium [Moles/Vol] 138 mmol/L Normal 136-145 [facility] Comment on above: Performed By: #### F REELIT #### [facility] [address] [place] [address] Dr. Shilo Lam Urea nitrogen [Mass/Vol] 75.0 mg/dL Critically high 7.0-18.0 [facility] Comment on above: Performed By: #### F REELIT #### [facility] [address] [place] [address] Dr. Shilo Lam Urea nitrogen/Creatinine [Mass ratio] 12.8 mg/mg Normal [facility] Comment on above: Performed By: #### F REELIT #### [facility] [address] [place] [address] Dr. Shilo Lam UA RANDOMon 04-29-2022 Bilirubin Ql (U) Negative Normal NEGATIVE [facility] Comment on above: Performed By: #### U A #### [facility] [address] [place] [address] Dr. Shilo Lam Clarity (U) CLEAR Normal CLEAR [facility] Comment on above: Performed By: #### U A #### [facility] [address] [place] [address] Dr. Shilo Lam Color (U) LT. YELLOW Normal YELLOW [facility] Comment on above: Performed By: #### U A #### [facility] [address] [place] [address] Dr. Shilo Lam Glucose Ql (U) Negative Normal NEGATIVE [facility] Comment on above: Performed By: #### U A #### [facility] [address] [place] [address] Dr. Shilo Lam Hemoglobin Ql (U) Negative Normal NEGATIVE [facility] Comment on above: Performed By: #### U A #### [facility] [address] [place] [address] Dr. Shilo Lam Ketones Ql (U) Negative Normal NEGATIVE [facility] Comment on above: Performed By: #### U A #### [facility] [address] [place] [address] Dr. Shilo Lam LEUKOCYTES Negative Normal NEGATIVE [facility] Comment on above: Performed By: #### U A #### [facility] [address] [place] [address] Dr. Shilo Lam Nitrite Ql (U) Negative Normal NEGATIVE [facility] Comment on above: Performed By: #### U A #### [facility] [address] [place] [address] Dr. Shilo Lam pH (U) 5.5 [pH] Normal 5-9 [facility] Comment on above: Performed By: #### U A #### [facility] [address] [place] [address] Dr. Shilo Lam SPEC GRAVITY 1.020 Normal 1.005-<=1.025 [facility] Comment on above: Performed By: #### U A #### [facility] [address] [place] [address] Dr. Shilo Lam UA PROTEIN 300 mg/dl Abnormal NEGATIVE/ TRACE [facility] Comment on above: Performed By: #### U A #### [facility] [address] [place] [address] Dr. Shilo Lam Urobilinogen Qn (U) 0.2 {Gama'U}/dL Normal 0.2 - 1. 0 [facility] Comment on above: Performed By: #### U A #### [facility] [address] [place] [address] Dr. Shilo Lam URINE T PROTEIN CREAT RATIOo n 04-29-2022 Protein (U) [Mass/Vol] 210.0 mg/dL Critically high <=12.0 [facility] Comment on above: Performed By: #### H H #### [facility] [address] [place] [address] Dr. Shilo Lam UR PROT CREAT RAT 5.36 Normal [facility] Comment on above: Performed By: #### H H #### [facility] [address] [place] [address] Dr. Shilo Lam URINE CREAT 39.20 mg/dL Normal 20.00-300.00 [facility] Comment on above: Performed By: #### H H #### [facility] [address] [place] [address] Dr. Shilo Lam VITAMIN D 25 OHon 04-29-2022 VIT D 25-OH 18.9 ng/mL Normal [facility] Comment on above: Performed By: #### F REELIT #### [facility] [address] [place] [address] Dr. Shilo Lam VIT D RANGES SEE BELOW Normal [facility] Comment on above: Result Comment: <20 ng/mL Vit D deficient 20 - <30 ng/mL Vit D insufficient 30 - 100 ng/mL Vit D sufficient >100 ng/mL Potential Toxicity Performed By: #### F REELIT #### [facility] [address] [place], [place] [address] Dr. Shilo Lam CBC W Auto Differential pane l (Bld)on 04-16-2022 Basophils (Bld) [#/Vol] 0.03 10*3/uL Normal <0.11 [facility] [place] Comment on above: Order Comment: Speci men Type: BLOOD SPECIMENOrdering Facility: [facility] Address: [address] [address] Performed By: #### 5 7021-8 ####[facility] [id number] [place] [address] Basophils/100 WBC (Bld) 0.5 % Normal [facility] Comment on above: Order Comment: Speci men Type: BLOOD SPECIMENOrdering Facility: [facility] Address: [address] [place] [address] Performed By: #### 5 7021-8 ####[facility] [id number] [place] [address] Differential cell count method Nom (Bld) Auto Normal [facility] [place] Comment on above: Order Comment: Speci men Type: BLOOD SPECIMENOrdering Facility: [facility] Address: [address] [place] [address] Performed By: #### 5 7021-8 ####[facility] [id number] [place] [address] Eosinophils (Bld) [#/Vol] 0.08 10*3/uL Normal <0.46 [facility] [place] Comment on above: Order Comment: Speci men Type: BLOOD SPECIMENOrdering Facility: [facility] Address: [address] [place] [address] Performed By: #### 5 7021-8 ####[facility] [id number] [place] [address] Eosinophils/100 WBC (Bld) 1.4 % Normal [facility] [place] Comment on above: Order Comment: Speci men Type: BLOOD SPECIMENOrdering Facility: [facility] Address: [address] [address] Performed By: #### 5 7021-8 ####[facility] [id number] [place] [address] Erythrocyte distribution width (RBC) [Ratio] 13.3 % Normal 11.5-15.0 [facility] [place] Comment on above: Order Comment: Speci men Type: BLOOD SPECIMENOrdering Facility: [facility] Address: [address] [place] [address] Performed By: #### 5 7021-8 ####[facility] [id number] [place] [address] Hematocrit (Bld) [Volume fraction] 32.2 % Low 39.0-51.0 [facility] [place] Comment on above: Order Comment: Speci men Type: BLOOD SPECIMENOrdering Facility: [facility] Address: [address] [place] [address] Performed By: #### 5 7021-8 ####[facility] [id number] [place] [address] Hemoglobin (Bld) [Mass/Vol] 10.5 g/dL Low 13.0-17.0 [facility] [place] Comment on above: Order Comment: Speci men Type: BLOOD SPECIMENOrdering Facility: [facility] Address: [address] [place] [address] Performed By: #### 5 7021-8 ####[facility] [id number] [place] [address] Immature granulocytes (Bld) [#/Vol] 10*3/uL Normal <0.10 [facility] [place] Comment on above: Order Comment: Speci men Type: BLOOD SPECIMENOrdering Facility: [facility] Address: [address] [place] [address] Performed By: #### 5 7021-8 ####[facility] [id number] [place] [address] Immature granulocytes/100 WBC (Bld) 0.2 % Normal [facility] [place] Comment on above: Order Comment: Speci men Type: BLOOD SPECIMENOrdering Facility: [facility] Address: [address] [place] [address] Performed By: #### 5 7021-8 ####[facility] [id number] [place] [address] Lymphocytes (Bld) [#/Vol] 0.64 10*3/uL Low 1.00-4.00 [facility] [place] Comment on above: Order Comment: Speci men Type: BLOOD SPECIMENOrdering Facility: [facility] Address: [address] [place] [address] Performed By: #### 5 7021-8 ####[facility] [id number] [place] [address] Lymphocytes/100 WBC (Bld) 11.0 % Normal [facility] [place] Comment on above: Order Comment: Speci men Type: BLOOD SPECIMENOrdering Facility: [facility] Address: [address] [place] [address] Performed By: #### 5 7021-8 ####[facility] [id number] [place] [address] MCH (RBC) [Entitic mass] 29.0 pg Normal 26.0-34.0 [facility] [place] Comment on above: Order Comment: Speci men Type: BLOOD SPECIMENOrdering Facility: [facility] Address: [address] [place] [address] Performed By: #### 5 7021-8 ####[facility] [id number] [place] [address] MCHC (RBC) [Mass/Vol] 32.6 g/dL Normal 30.5-36.0 [facility] Comment on above: Order Comment: Speci men Type: BLOOD SPECIMENOrdering Facility: [facility] Address: [address] [place] [address] Performed By: #### 5 7021-8 ####[facility] [id number] [place] [address] MCV (RBC) [Entitic vol] 89.0 fL Normal 80.0-100.[address] [facility] Comment on above: Order Comment: Speci men Type: BLOOD SPECIMENOrdering Facility: [facility] Address: [address] [place] [address] Performed By: #### 5 7021-8 ####[facility] [id number] [place] [address] Monocytes (Bld) [#/Vol] 0.62 10*3/uL Normal <0.87 [facility] [place] Comment on above: Order Comment: Speci men Type: BLOOD SPECIMENOrdering Facility: [facility] Address: [address] [place] [address] Performed By: #### 5 7021-8 ####[facility] [id number] [place] [address] Monocytes/100 WBC (Bld) 10.7 % Normal [facility] Comment on above: Order Comment: Speci men Type: BLOOD SPECIMENOrdering Facility: [facility] Address: [address] [place] [address] Performed By: #### 5 7021-8 ####[facility] [id number] [place] [address] Neutrophils (Bld) [#/Vol] 4.44 10*3/uL Normal 1.45-7.50 [facility] [place] Comment on above: Order Comment: Speci men Type: BLOOD SPECIMENOrdering Facility: [facility] Address: [address] [place] [address] Performed By: #### 5 7021-8 ####[facility] [id number] [place] [address] Neutrophils/100 WBC (Bld) 76.2 % Normal [facility] [place] Comment on above: Order Comment: Speci men Type: BLOOD SPECIMENOrdering Facility: [facility] Address: [address] [address] Performed By: #### 5 7021-8 ####[facility] [id number] [place] [address] Nucleated RBC (Bld) [#/Vol] 10*3/uL Normal <0.01 [facility] [place] Comment on above: Order Comment: Speci men Type: BLOOD SPECIMENOrdering Facility: [facility] Address: [address] [address] Performed By: #### 5 7021-8 ####[facility] [id number] [place] [address] Nucleated RBC/100 WBC (Bld) [Ratio] 0.0 /100 WBC Normal [facility] [place] Comment on above: Order Comment: Speci men Type: BLOOD SPECIMENOrdering Facility: [facility] Address: [address] Performed By: #### 5 7021-8 ####[facility] [id number] [place] [address] Platelet mean volume (Bld) [Entitic vol] 11.5 fL Normal 9.0-12.7 [facility] [place] Comment on above: Order Comment: Speci men Type: BLOOD SPECIMENOrdering Facility: [facility] Address: [address] Performed By: #### 5 7021-8 ####[facility] [id number] [place] [address] Platelets (Bld) [#/Vol] 136 10*3/uL Low 150-400 [facility] [place] Comment on above: Order Comment: Speci men Type: BLOOD SPECIMENOrdering Facility: [facility] Address: [address] Performed By: #### 5 7021-8 ####[facility] [id number] [place] [address] RBC (Bld) [#/Vol] 3.62 10*6/uL Low 4.20-6.00 [facility] Comment on above: Order Comment: Speci men Type: BLOOD SPECIMENOrdering Facility: [facility] Address: [address] [place] [address] Performed By: #### 5 7021-8 ####[facility] [id number] [place] [address] WBC (Bld) [#/Vol] 5.82 10*3/uL Normal 3.70-11.00 [facility] Comment on above: Order Comment: Speci men Type: BLOOD SPECIMENOrdering Facility: [facility] Address: [address] [place] [address] Performed By: #### 5 7021-8 ####[facility] [id number] [place] [address] CNOVSPon 04-16-2022 CNOVSP Visit (SP) Office ([place]) GOPAL YATES JR ([id number]) 1965 M Date Time Provider Department 04/16/22 3:30 PM MONIK DOTSON During your visit today, we recorded the following information about you: Temperature Pulse Respiration Blood pressure 97 degrees 59/minute 18/minute 136/61 Weight Height 89.8 kg 1.93 m Monik Dotson APRN.STREET INSPECTOR 04/16/2022 3:56 PM Signed NAME: Gopal Yates [facility] NO.: [id number] DATE OF SERVICE: April 16, 2022 (Imer) Some elements in this clinic note that are critical to medical decision making have been carefully reviewed and included from a prior clinic note dated: February 18, 2022. (Dr. Rojas) Referring Provider: Dr. Douglas Juárez Additional Clinicians involved in Gopal Yates JR's care: DIAGNOSIS: [place]ated [place]: Lambda light chains CKD induced anemia ASSESSMENT: [...] bruising. 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 Overall, he is doing [...] completed 5 [place] [facility] Visit, October 02, 2021: Gopal Yates [...] Unknown MEDICA (more content not included)... Normal [facility] Comprehensive metabolic 2000 panelon 04-16-2022 Albumin [Mass/Vol] 3.7 g/dL Low 3.9-4.9 [facility] Comment on above: Order Comment: Specmesfin mcdonnell Type: BLOOD SPECIMEN [facility] Address: [address] [address] Performed By: #### 2 4323-8 #### [facility] CLIA [id number] [address] [place] [address] ALP [Catalytic activity/Vol] 195 U/L High 38-113 [facility] Comment on above: Order Comment: Speci men Type: BLOOD SPECIMEN [facility] Address: [address] [address] Performed By: #### 2 4323-8 #### [facility] CLIA [id number] [address] [place] [address] 55598 ALT [Catalytic activity/Vol] 20 U/L Normal 10-54 [facility] Comment on above: Order Comment: Speci men Type: BLOOD SPECIMEN [facility] Address: [address] [address] Performed By: #### 2 4323-8 #### [facility] CLIA [id number] [address] [place] [address]296 Anion gap [Moles/Vol] 13 mmol/L Normal 9-18 [facility] Comment on above: Order Comment: Speci men Type: BLOOD SPECIMEN [facility] Address: [address] [address] Performed By: #### 2 4323-8 #### [facility] CLIA [id number] [address] [place] [address] 30887 AST [Catalytic activity/Vol] 16 U/L Normal 14-40 [facility] Comment on above: Order Comment: Speci men Type: BLOOD SPECIMEN [facility] Address: [address] [address] Performed By: #### 2 4323-8 #### [facility] CLIA [id number] [address] [place] [address]888 Bilirubin [Mass/Vol] 0.5 mg/dL Normal 0.2-1.3 [facility] Comment on above: Order Comment: Speci men Type: BLOOD SPECIMEN [facility] Address: [address] [address] Performed By: #### 2 4323-8 #### [facility] CLIA [id number] [address] [place] [address]99 Calcium [Mass/Vol] 8.1 mg/dL Low 8.5-10.2 [facility] Comment on above: Order Comment: Speci men Type: BLOOD SPECIMEN [facility] Address: [address] [address] Performed By: #### 2 4323-8 #### [facility] CLIA [id number] [address] [place] [address]12 Chloride [Moles/Vol] 112 mmol/L High 97-105 [facility] Comment on above: Order Comment: Speci men Type: BLOOD SPECIMEN [facility] Address: [address] [address] Performed By: #### 2 4323-8 #### [facility] CLIA [id number] [address] [place] [address]105 CO2 [Moles/Vol] 17 mmol/L Low 22-30 [facility] Comment on above: Order Comment: Speci men Type: BLOOD SPECIMEN [facility] Address: [address] [address] Performed By: #### 2 4323-8 #### [facility] CLIA [id number] [address] [place] [address] 49878 Creatinine [Mass/Vol] 4.53 mg/dL High 0.73-1.22 [facility] Comment on above: Order Comment: Speci men Type: BLOOD SPECIMEN [facility] Address: [address] [address] Performed By: #### 2 4323-8 #### [facility] CLIA [id number] [address] [place], [place] [address] ESTIMATED GLOMERULAR FILTRATION RATE 14 mL/min/1.73m??? Low >=60 [facility] Comment on above: Order Comment: Speci men Type: BLOOD SPECIMEN [facility] Address: [address] [place] [address] Result Comment: Trixie mated Glomerular Filtration Rate [...] GFR. Performed By: #### 2 4323-8 #### [facility] CLIA [id number] [address] [place] [address] 64698 Glucose [Mass/Vol] 146 mg/dL High 74-99 [facility] Comment on above: Order Comment: Fabi mcdonnell Type: BLOOD SPECIMEN [facility] Address: [address] [place] [address] Result Comment: The [place] Diabetes Association (ADA) provides guidance for cutoff [...] Standards of Medical Care in Diabetes 2016, [place] [employer]. Diabetes Care. 2016.39(Suppl 1). Performed By: #### 2 4323-8 #### [facility] CLIA [id number] [address] [place] [address]91 Potassium [Moles/Vol] 4.2 mmol/L Normal 3.7-5.1 [facility] Comment on above: Order Comment: Fabi mcdonnell Type: BLOOD SPECIMEN [facility] Address: [address] [place] [address] Performed By: #### 2 4323-8 #### [facility] CLIA [id number] [address] [place] [address] 51689 Protein [Mass/Vol] 7.0 g/dL Normal 6.3-8.0 [facility] Comment on above: Order Comment: Fabi mcdonnell Type: BLOOD SPECIMEN [facility] Address: [address] [place] [address] Performed By: #### 2 4323-8 #### [facility] CLIA [id number] [address] [place] [address] 66401 Sodium [Moles/Vol] 142 mmol/L Normal 136-144 [facility] Comment on above: Order Comment: Speci men Type: BLOOD SPECIMEN [facility] Address: [address] [place] [address] Performed By: #### 2 4323-8 #### [facility] CLIA [id number] [address] [place] [address] 64331 Urea nitrogen [Mass/Vol] 81 mg/dL High 9-24 [facility] Comment on above: Order Comment: Speci men Type: BLOOD SPECIMEN [facility] Address: [address] [place] [address] Performed By: #### 2 4323-8 #### [facility] CLIA [id number] [address] [place] [address] 85786 CBC W Auto Differential pane l (Bld)on 03-18-2022 Basophils (Bld) [#/Vol] 10*3/uL Normal <0.[address] [facility] Comment on above: Order Comment: Speci men Type: BLOOD SPECIMENOrdering Facility: [facility] Address: [address] [address] Performed By: #### 5 7021-8 ####[facility] [id number] [place] [id number] Basophils/100 WBC (Bld) 0.4 % Normal [facility] Comment on above: Order Comment: Speci men Type: BLOOD SPECIMENOrdering Facility: [facility] Address: [address] [place] [address] Performed By: #### 5 7021-8 ####[facility] [id number] [place] [address] Differential cell count method Nom (Bld) Auto Normal [facility] Comment on above: Order Comment: Speci men Type: BLOOD SPECIMENOrdering Facility: [facility] Address: [address] [place] [address] Performed By: #### 5 7021-8 ####[facility] [id number] [place] [address] Eosinophils (Bld) [#/Vol] 0.11 10*3/uL Normal <0.46 [facility] Comment on above: Order Comment: Speci men Type: BLOOD SPECIMENOrdering Facility: [facility] Address: [address] [place] [address] Performed By: #### 5 7021-8 ####[facility] [id number] [place] [address] Eosinophils/100 WBC (Bld) 2.2 % Normal [facility] Comment on above: Order Comment: Speci men Type: BLOOD SPECIMENOrdering Facility: [facility] Address: [address] [place] [address] Performed By: #### 5 7021-8 ####[facility] [id number] [place] [address] Erythrocyte distribution width (RBC) [Ratio] 14.6 % Normal 11.5-15.0 [facility] Comment on above: Order Comment: Speci men Type: BLOOD SPECIMENOrdering Facility: [facility] Address: [address] [place] [address] Performed By: #### 5 7021-8 ####[facility] [id number] [place] [address] Hematocrit (Bld) [Volume fraction] 31.4 % Low 39.0-51.0 [facility] Comment on above: Order Comment: Speci men Type: BLOOD SPECIMENOrdering Facility: [facility] Address: [address] [place] [address] Performed By: #### 5 7021-8 ####[facility] [id number] [place] [address] Hemoglobin (Bld) [Mass/Vol] 10.0 g/dL Low 13.0-17.0 [facility] Comment on above: Order Comment: Speci men Type: BLOOD SPECIMENOrdering Facility: [facility] Address: [address] [address] Performed By: #### 5 7021-8 ####[facility] [id number] [place] [address] Immature granulocytes (Bld) [#/Vol] 10*3/uL Normal <0.10 [facility] Comment on above: Order Comment: Speci men Type: BLOOD SPECIMENOrdering Facility: [facility] Address: [address] [place] [address] Performed By: #### 5 7021-8 ####[facility] [id number] [place] [address] Immature granulocytes/100 WBC (Bld) 0.2 % Normal [facility] Comment on above: Order Comment: Speci men Type: BLOOD SPECIMENOrdering Facility: [facility] Address: [address] [place] [address] Performed By: #### 5 7021-8 ####[facility] [id number] [place] [address] Lymphocytes (Bld) [#/Vol] 0.68 10*3/uL Low 1.00-4.00 [facility] Comment on above: Order Comment: Speci men Type: BLOOD SPECIMENOrdering Facility: [facility] Address: [address] [place] [address] Performed By: #### 5 7021-8 ####[facility] [id number] [place] [address] Lymphocytes/100 WBC (Bld) 13.4 % Normal [facility] Comment on above: Order Comment: Speci men Type: BLOOD SPECIMENOrdering Facility: [facility] Address: [address] [place] [address] Performed By: #### 5 7021-8 ####[facility] [id number] [place] [address] MCH (RBC) [Entitic mass] 28.4 pg Normal 26.0-34.0 [facility] Comment on above: Order Comment: Speci men Type: BLOOD SPECIMENOrdering Facility: [facility] Address: [address] [place] [address] Performed By: #### 5 7021-8 ####[facility] [id number] [place] [address] MCHC (RBC) [Mass/Vol] 31.8 g/dL Normal 30.5-36.0 [facility] Comment on above: Order Comment: Speci men Type: BLOOD SPECIMENOrdering Facility: [facility] Address: [address] [place] [address] Performed By: #### 5 7021-8 ####[facility] [id number] [place] [address] MCV (RBC) [Entitic vol] 89.2 fL Normal 80.0-100.[address] [facility] Comment on above: Order Comment: Speci men Type: BLOOD SPECIMENOrdering Facility: [facility] Address: [address] [place] [address] Performed By: #### 5 7021-8 ####[facility] [id number] [place] [address] Monocytes (Bld) [#/Vol] 0.67 10*3/uL Normal <0.87 [facility] Comment on above: Order Comment: Speci men Type: BLOOD SPECIMENOrdering Facility: [facility] Address: [address] [place] [address] Performed By: #### 5 7021-8 ####[facility] [id number] [place] [address] Monocytes/100 WBC (Bld) 13.2 % Normal [facility] Comment on above: Order Comment: Speci men Type: BLOOD SPECIMENOrdering Facility: [facility] Address: [address] [place] [address] Performed By: #### 5 7021-8 ####[facility] [id number] [place] [address] Neutrophils (Bld) [#/Vol] 3.60 10*3/uL Normal 1.45-7.50 [facility] Comment on above: Order Comment: Speci men Type: BLOOD SPECIMENOrdering Facility: [facility] Address: [address] [place] [address] Performed By: #### 5 7021-8 ####[facility] [id number] [place] [address] Neutrophils/100 WBC (Bld) 70.6 % Normal [facility] Comment on above: Order Comment: Speci men Type: BLOOD SPECIMENOrdering Facility: [facility] Address: [address] [place] [address] Performed By: #### 5 7021-8 ####[facility] [id number] [place] [address] Nucleated RBC (Bld) [#/Vol] 10*3/uL Normal <0.01 [facility] Comment on above: Order Comment: Speci men Type: BLOOD SPECIMENOrdering Facility: [facility] Address: [address] [place] [address] Performed By: #### 5 7021-8 ####[facility] [id number] [place] [address] Nucleated RBC/100 WBC (Bld) [Ratio] 0.0 /100 WBC Normal [facility] Comment on above: Order Comment: Speci men Type: BLOOD SPECIMENOrdering Facility: [facility] Address: [address] [place] [address] Performed By: #### 5 7021-8 ####[facility] [id number] [place] [address] Platelet mean volume (Bld) [Entitic vol] 10.7 fL Normal 9.0-12.7 [facility] Comment on above: Order Comment: Speci men Type: BLOOD SPECIMENOrdering Facility: [facility] Address: [address] [place] [address] Performed By: #### 5 7021-8 ####[facility] [id number] [place] [address] Platelets (Bld) [#/Vol] 130 10*3/uL Low 150-400 [facility] Comment on above: Order Comment: Speci men Type: BLOOD SPECIMENOrdering Facility: [facility] Address: [address] [place] [address] Performed By: #### 5 7021-8 ####[facility] [id number] [place] [address] RBC (Bld) [#/Vol] 3.52 10*6/uL Low 4.20-6.00 [facility] Comment on above: Order Comment: Speci men Type: BLOOD SPECIMENOrdering Facility: [facility] Address: [address] [place] [address] Performed By: #### 5 7021-8 ####[facility] [id number] [place] [address] WBC (Bld) [#/Vol] 5.09 10*3/uL Normal 3.70-11.00 [facility] Comment on above: Order Comment: Speci men Type: BLOOD SPECIMENOrdering Facility: [facility] Address: [address] [place] [address] Performed By: #### 5 7021-8 ####[facility] [id number] [place] [address] Comprehensive metabolic 2000 panelon 03-18-2022 Albumin [Mass/Vol] 3.5 g/dL Low 3.9-4.9 [facility] Comment on above: Order Comment: Speci men Type: BLOOD SPECIMENOrdering Facility: [facility] Address: [address] [address] Performed By: #### 2 4323-8 ####[facility] [id number] [place] [address] ALP [Catalytic activity/Vol] 154 U/L High 38-113 [facility] Comment on above: Order Comment: Speci men Type: BLOOD SPECIMENOrdering Facility: [facility] Address: [address] [address] Performed By: #### 2 4323-8 ####[facility] [id number] [place] [address] ALT [Catalytic activity/Vol] 15 U/L Normal 10-54 [facility] Comment on above: Order Comment: Speci men Type: BLOOD SPECIMENOrdering Facility: [facility] Address: [address] [place] [address] Performed By: #### 2 4323-8 ####[facility] [id number] [place] [address] Anion gap [Moles/Vol] 11 mmol/L Normal 9-18 [facility] Comment on above: Order Comment: Speci men Type: BLOOD SPECIMENOrdering Facility: [facility] Address: [address] [place] [address] Performed By: #### 2 4323-8 ####[facility] [id number] [place] [address] AST [Catalytic activity/Vol] 16 U/L Normal 14-40 [facility] Comment on above: Order Comment: Speci men Type: BLOOD SPECIMENOrdering Facility: [facility] Address: [address] [place] [address] Performed By: #### 2 4323-8 ####[facility] [id number] [place] [address] Bilirubin [Mass/Vol] 0.5 mg/dL Normal 0.2-1.3 [facility] Comment on above: Order Comment: Speci men Type: BLOOD SPECIMENOrdering Facility: [facility] Address: [address] [address] Performed By: #### 2 4323-8 ####[facility] [id number] [place] [address] Calcium [Mass/Vol] 8.5 mg/dL Normal 8.5-10.2 [facility] Comment on above: Order Comment: Speci men Type: BLOOD SPECIMENOrdering Facility: [facility] Address: [address] [address] Performed By: #### 2 4323-8 ####[facility] [id number] [place] [address] Chloride [Moles/Vol] 114 mmol/L High 97-105 [facility] Comment on above: Order Comment: Speci men Type: BLOOD SPECIMENOrdering Facility: [facility] Address: [address] [address] Performed By: #### 2 4323-8 ####[facility] [id number] [place] [address] CO2 [Moles/Vol] 18 mmol/L Low 22-30 [facility] Comment on above: Order Comment: Speci men Type: BLOOD SPECIMENOrdering Facility: [facility] Address: [address] [address] Performed By: #### 2 4323-8 ####[facility] [id number] [place] [address] Creatinine [Mass/Vol] 4.59 mg/dL High 0.73-1.22 [facility] Comment on above: Order Comment: Speci men Type: BLOOD SPECIMENOrdering Facility: [facility] Address: [address] [place] [address] Performed By: #### 2 4323-8 ####[facility] [id number] [place] [address] ESTIMATED GLOMERULAR FILTRATION RATE 14 mL/min/1.73m??? Low >=60 [facility] Comment on above: Order Comment: Fabi mcdonnell Type: BLOOD SPECIMENOrdering Facility: [facility] Address: [address] [place] [address] Result Comment: Trixie mated Glomerular Filtration Rate [...] actual GFR. Performed By: #### 2 4323-8 ####[facility] [id number] [place] [address] Glucose [Mass/Vol] 86 mg/dL Normal 74-99 [facility] Comment on above: Order Comment: Fabi mcdonnell Type: BLOOD SPECIMENOrdering Facility: [facility] Address: [address] [place] [address] Result Comment: The [place] Diabetes [employer] (ADA) provides guidance for cutoff [...] Standards of Medical Care in Diabetes 2016, [place] [employer]. Diabetes Care. 2016.39(Suppl 1). Performed By: #### 2 4323-8 ####[facility] [id number] [place] [address] Potassium [Moles/Vol] 4.4 mmol/L Normal 3.7-5.1 [facility] Comment on above: Order Comment: Speci men Type: BLOOD SPECIMENOrdering Facility: [facility] Address: [address] [address] Performed By: #### 2 4323-8 ####[facility] [id number] [place] [address] Protein [Mass/Vol] 6.8 g/dL Normal 6.3-8.0 [facility] Comment on above: Order Comment: Speci men Type: BLOOD SPECIMENOrdering Facility: [facility] Address: [address] [address] Performed By: #### 2 4323-8 ####[facility] [id number] [place] [address] Sodium [Moles/Vol] 143 mmol/L Normal 136-144 [facility] Comment on above: Order Comment: Speci men Type: BLOOD SPECIMENOrdering Facility: [facility] Address: [address] [place] [address] Performed By: #### 2 4323-8 ####[facility] [id number] [place] [address] Urea nitrogen [Mass/Vol] 74 mg/dL High 9-24 [facility] Comment on above: Order Comment: Speci men Type: BLOOD SPECIMENOrdering Facility: [facility] Address: [address] [place] [address] Performed By: #### 2 4323-8 ####[facility] [id number] [place] [address] [facility] Fer[facility]in [Mass/Vol] 508.0 ng/mL Normal 30.3-565.7 [facility] Comment on above: Order Comment: Speci men Type: BLOOD SPECIMENOrdering Facility: [facility] Address: [address] [place] [address] Performed By: #### 2 284-8, 2276-4, 9, 53013-8 ####[facility] LABCLIA [id number] [place] [id number] [place] Folate SerPl-ncon 03-18-20 Folate [Mass/Vol] 8.1 ng/mL Normal >4.7 [facility] Comment on above: Order Comment: Speci men Type: BLOOD SPECIMENOrdering Facility: [facility] Address: [address] [place] [address] Performed By: #### 2 284-8, 2276-4, 9, 19488-3 ####[facility] LABIA [id number] [place] [id number] [place] Iron and Iron binding capaci panel 03-18-2022 Iron [Mass/Vol] 63 ug/dL Normal 41-186 [facility] Comment on above: Order Comment: Speci men Type: BLOOD SPECIMENOrdering Facility: [facility] Address: [address] [place] [address] Performed By: #### 2 284-8, 6-4, 9, 93367-9 ####[facility] LABIA [id number] [place] [id number] [place] [facility] Iron binding capacity [Mass/Vol] 204 ug/dL Low 232-386 [facility] Comment on above: Order Comment: Speci men Type: BLOOD SPECIMENOrdering Facility: [facility] Address: [address] [place] [address] Performed By: #### 2 284-8, 2276-4, 9, 02754-7 ####[facility] LABIA [id number] [place] [id number] [place] Iron/TIBC [Molar ratio] 30.9 % Normal 15.0-57.[address] [facility] Comment on above: Order Comment: Speci men Type: BLOOD SPECIMENOrdering Facility: [facility] Address: [address] [place] [address] Performed By: #### 2 284-8, 2276-4, 2131-9, 98383-5 ####[facility] LABCLIA [id number] [place] [address] [place] PTH INTACTon 03-18-2022 PTH, Intact 68 pg/mL Critically high 15-65 [facility] Comment on above: Performed By: #### H H #### [facility] [address] [place] [address] Dr. Shilo Lam Vit B12 SerPl-mCncon 022 Cobalamin (Vitamin B12) [Mass/Vol] 670 pg/mL Normal 232-1245 [facility] Comment on above: Order Comment: Speci men Type: BLOOD SPECIMENOrdering Facility: [facility] Address: [address] [place] [address] Performed By: #### 2 284-8, 2276-4, 9, 37927-4 ####[facility] LABCLIA [id number] [place] [address] [place] FERRITINon 03-17-2022 Ferritin [Mass/Vol] 493.0 ng/mL Critically high 26.0-388.0 [facility] Comment on above: Performed By: #### V ITAD, FERR, FETIBC, B12FOL #### [facility] [address] [place] [address] Dr. Shilo Lam HEMOGRAM AND PLATELon 2021 Hematocrit (Bld) [Volume fraction] 32.7 % Critically low 42.0-54.0 [facility] Comment on above: Performed By: #### V ITAD, FERR, FETIBC, B12FOL #### [facility] [address] [place] [address] Dr. Shilo Lam Hemoglobin (Bld) [Mass/Vol] 10.7 g/dL Critically low 14.0-18.0 [facility] Comment on above: Performed By: #### V ITAD, FERR, FETIBC, B12FOL #### [facility] [address] [place] [address] Dr. Shilo Lam MCH (RBC) [Entitic mass] 28.7 pg Normal 25.9-34.0 [facility] Comment on above: Performed By: #### V ITAD, FERR, FETIBC, B12FOL #### [facility] [address] [place] [address] Dr. Shilo Lam MCHC (RBC) [Mass/Vol] 32.7 g/dL Normal 29.9-35.2 [facility] Comment on above: Performed By: #### V ITAD, FERR, FETIBC, B12FOL #### [facility] [address] [place] [address] Dr. Shilo Lam MCV (RBC) [Entitic vol] 87.7 fL Normal 80.0-94.0 [facility] Comment on above: Performed By: #### V ITAD, FERR, FETIBC, B12FOL #### [facility] [address] [place] [address] Dr. Shilo Lam PLT 157 103/ul Normal 150-450 [facility] Comment on above: Performed By: #### V ITAD, FERR, FETIBC, B12FOL #### [facility] [address] [place] [address] Dr. Shilo Lam RBC 3.73 106/ul Critically low 4.70-6.10 [facility] Comment on above: Performed By: #### V ITAD, FERR, FETIBC, B12FOL #### [facility] [address] [place] [address] Dr. Shilo Lam WBC 5.6 103/ul Normal 4.0-11.0 [facility] Comment on above: Performed By: #### V ITAD, FERR, FETIBC, B12FOL #### [facility] [address] [place] [address] Dr. Shilo Lam IRON AND TIBCon 03-17-2022 % SATURATION 38.4 % Normal [facility] Comment on above: Performed By: #### V ITAD, FERR, FETIBC, B12FOL #### [facility] [address] [place] [address] Dr. hSilo Lam Iron [Mass/Vol] 63.0 ug/dL Critically low 65.0-175.0 [facility] Comment on above: Performed By: #### V ITAD, FERR, FETIBC, B12FOL #### [facility] [address] [place] [address] Dr. Shilo Lam TIBC DIRECT 164.0 ug/dL Critically low 250.0-450.0 [facility] Comment on above: Performed By: #### V ITAD, FERR, FETIBC, B12FOL #### [facility] [address] [place] [address] Dr. Shilo Lam MAGNESIUMon 03-17-2022 Magnesium [Mass/Vol] 2.0 mg/dL Normal 1.8-2.4 [facility] Comment on above: Performed By: #### F KYLIELIT #### [facility] [address] [place] [address] Dr. Shilo Lam PROF 14(COMP METB)on 022 Albumin [Mass/Vol] 2.9 g/dL Critically low 3.4-5.0 [facility] Comment on above: Performed By: #### F REELIT #### [facility] [address] [place] [address] Dr. Shilo Lam Albumin/Globulin [Mass ratio] 0.6 {ratio} Normal [facility] Comment on above: Performed By: #### F REELIT #### [facility] [address] [place] [address] Dr. Shilo Lam ALP [Catalytic activity/Vol] 152 U/L Critically high 46-116 [facility] Comment on above: Performed By: #### F REELIT #### [facility] [address] [place] [address] Dr. Shilo Lam ALT [Catalytic activity/Vol] 19 U/L Normal 16-63 [facility] Comment on above: Performed By: #### F REELIT #### [facility] [address] [place] [address] Dr. Shilo Lam Anion gap [Moles/Vol] 15.1 mmol/L Normal [facility] Comment on above: Performed By: #### F REELIT #### [facility] [address] [address] [address] Shilo Lam AST [Catalytic activity/Vol] 21 U/L Normal 15-37 [facility] Comment on above: Performed By: #### F REELIT #### [facility] [address] [address] [address] Shilo Lam Bilirubin [Mass/Vol] 0.6 mg/dL Normal 0.2-1.0 [facility] Comment on above: Performed By: #### F REELIT #### [facility] [address] [place] [address] Dr. Shilo Lam Calcium [Mass/Vol] 8.2 mg/dL Critically low 8.5-10.1 [facility] Comment on above: Performed By: #### F REELIT #### [facility] [address] [place] [address] Dr. Shilo Lam Chloride [Moles/Vol] 109 mmol/L Critically high 98-107 [facility] Comment on above: Performed By: #### F REELIT #### [facility] [address] [place] [address] Dr. Shilo Lam CO2 [Moles/Vol] 20.5 mmol/L Critically low 21.0-32.0 [facility] Comment on above: Performed By: #### F REELIT #### [facility] [address] [place] [address] Dr. Shilo Lam Creatinine [Mass/Vol] 4.77 mg/dL Critically high 0.70-1.30 [facility] Comment on above: Performed By: #### F REELIT #### [facility] [address] [place] [address] Dr. Shilo Lam EGFR-AF ROMANIAN 15 mL/min/1.73m2 Critically low >=60 [facility] Comment on above: Performed By: #### F REELIT #### [facility] [address] [address] [address] Shilo Lam EGFR-NON AF ROMANIAN 13 mL/min/1.73m2 Critically low >=60 [facility] Comment on above: Performed By: #### F REELIT #### [facility] [address] [address] [address] Shilo Lam Globulin (S) [Mass/Vol] 4.6 g/dL Normal [facility] Comment on above: Performed By: #### F REELIT #### [facility] [address] [address] [address] Shilo Lam Glucose [Mass/Vol] 88 mg/dL Normal 74-106 [facility] Comment on above: Performed By: #### F REELIT #### [facility] [address] [address] [address] Shilo Lam Potassium [Moles/Vol] 3.6 mmol/L Normal 3.5-5.1 [facility] Comment on above: Performed By: #### F REELIT #### [facility] [address] [address] [address] Shilo Lam Protein [Mass/Vol] 7.5 g/dL Normal 6.4-8.2 [facility] Comment on above: Performed By: #### F REELIT #### [facility] [address] [address] [address] Shilo Lam Sodium [Moles/Vol] 141 mmol/L Normal 136-145 [facility] Comment on above: Performed By: #### F REELIT #### [facility] [address] [address] [address] Shilo Lam Urea nitrogen [Mass/Vol] 75.0 mg/dL Critically high 7.0-18.0 [facility] Comment on above: Performed By: #### F REELIT #### [facility] [address] [address] [address] Shilo Lam Urea nitrogen/Creatinine [Mass ratio] 15.7 mg/mg Normal [facility] Comment on above: Performed By: #### F REELIT #### [facility] [address] [place] [address] Dr. Shilo Lam URIC ACID SERUMon 03-17-2022 Urate [Mass/Vol] 6.0 mg/dL Normal 3.5-7.2 [facility] Comment on above: Performed By: #### F MASSIEL #### [facility] [address] [place] [address] Dr. Shilo Lam VIT B12 AND FOLATEon 022 Cobalamin (Vitamin B12) [Mass/Vol] 697.0 pg/mL Normal 193.0-986.0 [facility] Comment on above: Performed By: #### V ITAD, FERR, FETIBC, B12FOL #### [facility] [address] [place] [address] Dr. Shilo Lam FOLATE 11.70 ng/mL Normal 8.60-58.90 [facility] Comment on above: Performed By: #### V ITAD, FERR, FETIBC, B12FOL #### [facility] [address] [place] [address] Dr. Shilo Lam VITAMIN D 25 OHon 03-17-2022 VIT D 25-OH 16.2 ng/mL Normal [facility] Comment on above: Performed By: #### V ITAD, FERR, FETIBC, B12FOL #### [facility] [address] [place] [address] Dr. Shilo Lam VIT D RANGES SEE BELOW Normal [facility] Comment on above: Result Comment: <20 ng/mL Vit D deficient 20 - <30 ng/mL Vit D insufficient 30 - 100 ng/mL Vit D sufficient >100 ng/mL Potential Toxicity Performed By: #### V ITAD, FERR, FETIBC, B12FOL #### [facility] [address] [place] [address] Dr. Shilo Lam CBC W Auto Differential pane l (Bld)on 02-18-2022 Basophils (Bld) [#/Vol] 0.03 10*3/uL Normal <0.11 [facility] Comment on above: Order Comment: Speci men Type: BLOOD SPECIMENOrdering Facility: [facility] Address: [address] [address] Performed By: #### 5 7021-8 ####[facility] [id number] [place] [address] Basophils/100 WBC (Bld) 0.4 % Normal [facility] Comment on above: Order Comment: Speci men Type: BLOOD SPECIMENOrdering Facility: [facility] Address: [address] [place] [address] Performed By: #### 5 7021-8 ####[facility] [id number] [place] [address] Differential cell count method Nom (Bld) Auto Normal [facility] Comment on above: Order Comment: Speci men Type: BLOOD SPECIMENOrdering Facility: [facility] Address: [address] [place] [address] Performed By: #### 5 7021-8 ####[facility] [id number] [place] [address] Eosinophils (Bld) [#/Vol] 0.14 10*3/uL Normal <0.46 [facility] Comment on above: Order Comment: Speci men Type: BLOOD SPECIMENOrdering Facility: [facility] Address: [address] [place] [address] Performed By: #### 5 7021-8 ####[facility] [id number] [place] [address] Eosinophils/100 WBC (Bld) 1.9 % Normal [facility] Comment on above: Order Comment: Speci men Type: BLOOD SPECIMENOrdering Facility: [facility] Address: [address] [place] [address] Performed By: #### 5 7021-8 ####[facility] [id number] [place] [address] Erythrocyte distribution width (RBC) [Ratio] 17.1 % High 11.5-15.0 [facility] Comment on above: Order Comment: Speci men Type: BLOOD SPECIMENOrdering Facility: [facility] Address: [address] [place] [address] Performed By: #### 5 7021-8 ####[facility] [id number] [place] [address] Hematocrit (Bld) [Volume fraction] 32.4 % Low 39.0-51.0 [facility] Comment on above: Order Comment: Speci men Type: BLOOD SPECIMENOrdering Facility: [facility] Address: [address] [place] [address] Performed By: #### 5 7021-8 ####[facility] [id number] [place] [address] Hemoglobin (Bld) [Mass/Vol] 10.3 g/dL Low 13.0-17.0 [facility] Comment on above: Order Comment: Speci men Type: BLOOD SPECIMENOrdering Facility: [facility] Address: [address] [place] [address] Performed By: #### 5 7021-8 ####[facility] [id number] [place] [address] Immature granulocytes (Bld) [#/Vol] 0.03 10*3/uL Normal <0.10 [facility] Comment on above: Order Comment: Speci men Type: BLOOD SPECIMENOrdering Facility: [facility] Address: [address] [place] [address] Performed By: #### 5 7021-8 ####[facility] [id number] [place] [address] Immature granulocytes/100 WBC (Bld) 0.4 % Normal [facility] Comment on above: Order Comment: Speci men Type: BLOOD SPECIMENOrdering Facility: [facility] Address: [address] [place] [address] Performed By: #### 5 7021-8 ####[facility] [id number] [place] [address] Lymphocytes (Bld) [#/Vol] 0.74 10*3/uL Low 1.00-4.00 [facility] Comment on above: Order Comment: Speci men Type: BLOOD SPECIMENOrdering Facility: [facility] Address: [address] [place] [address] Performed By: #### 5 7021-8 ####[facility] [id number] [place] [address] Lymphocytes/100 WBC (Bld) 9.9 % Normal [facility] Comment on above: Order Comment: Speci men Type: BLOOD SPECIMENOrdering Facility: [facility] Address: [address] [place] [address] Performed By: #### 5 7021-8 ####[facility] [id number] [place] [address] MCH (RBC) [Entitic mass] 27.6 pg Normal 26.0-34.0 [facility] Comment on above: Order Comment: Speci men Type: BLOOD SPECIMENOrdering Facility: [facility] Address: [address] [place] [address] Performed By: #### 5 7021-8 ####[facility] [id number] [place] [address] MCHC (RBC) [Mass/Vol] 31.8 g/dL Normal 30.5-36.0 [facility] Comment on above: Order Comment: Speci men Type: BLOOD SPECIMENOrdering Facility: [facility] Address: [address] [place] [address] Performed By: #### 5 7021-8 ####[facility] [id number] [place] [address] MCV (RBC) [Entitic vol] 86.9 fL Normal 80.0-100.0 [facility] Comment on above: Order Comment: Speci men Type: BLOOD SPECIMENOrdering Facility: [facility] Address: [address] [address] Performed By: #### 5 7021-8 ####[facility] [id number] [place] [address] Monocytes (Bld) [#/Vol] 0.77 10*3/uL Normal <0.87 [facility] Comment on above: Order Comment: Speci men Type: BLOOD SPECIMENOrdering Facility: [facility] Address: [address] [address] Performed By: #### 5 7021-8 ####[facility] [id number] [place] [address] Monocytes/100 WBC (Bld) 10.3 % Normal [facility] Comment on above: Order Comment: Speci men Type: BLOOD SPECIMENOrdering Facility: [facility] Address: [address] [place] [address] Performed By: #### 5 7021-8 ####[facility] [id number] [place] [address] Neutrophils (Bld) [#/Vol] 5.77 10*3/uL Normal 1.45-7.50 [facility] Comment on above: Order Comment: Speci men Type: BLOOD SPECIMENOrdering Facility: [facility] Address: [address] [place] [address] Performed By: #### 5 7021-8 ####[facility] [id number] [place] [address] Neutrophils/100 WBC (Bld) 77.1 % Normal [facility] Comment on above: Order Comment: Speci men Type: BLOOD SPECIMENOrdering Facility: [facility] Address: [address] [place] [address] Performed By: #### 5 7021-8 ####[facility] [id number] [place] [address] Nucleated RBC (Bld) [#/Vol] 10*3/uL Normal <0.01 [facility] Comment on above: Order Comment: Speci men Type: BLOOD SPECIMENOrdering Facility: [facility] Address: [address] [place] [address] Performed By: #### 5 7021-8 ####[facility] [id number] [place] [address] Nucleated RBC/100 WBC (Bld) [Ratio] 0.0 /100 WBC Normal [facility] Comment on above: Order Comment: Speci men Type: BLOOD SPECIMENOrdering Facility: [facility] Address: [address] [place] [address] Performed By: #### 5 7021-8 ####[facility] [id number] [place] [address] Platelet mean volume (Bld) [Entitic vol] 10.4 fL Normal 9.0-12.7 [facility] Comment on above: Order Comment: Speci men Type: BLOOD SPECIMENOrdering Facility: [facility] Address: [address] [place] [address] Performed By: #### 5 7021-8 ####[facility] [id number] [place] [address] Platelets (Bld) [#/Vol] 136 10*3/uL Low 150-400 [facility] Comment on above: Order Comment: Speci men Type: BLOOD SPECIMENOrdering Facility: [facility] Address: [address] [place] [address] Performed By: #### 5 7021-8 ####[facility] [id number] [place] [address] RBC (Bld) [#/Vol] 3.73 10*6/uL Low 4.20-6.00 [facility] Comment on above: Order Comment: Speci men Type: BLOOD SPECIMENOrdering Facility: [facility] Address: [place] [address] Performed By: #### 5 7021-8 ####[facility] [id number] [place] [address] WBC (Bld) [#/Vol] 7.48 10*3/uL Normal 3.70-11.00 [facility] Comment on above: Order Comment: Speci men Type: BLOOD SPECIMENOrdering Facility: [facility] Address: [place] [address] Performed By: #### 5 7021-8 ####[facility]IA [id number] [place] [address] CNOVSPon 02-18-2022 CNOVSP Visit (SP) Office ([place]) GOPAL YATES JR ([id number]) 1965 M Date Time Provider Department 02/18/22 1:45 PM CONRAD ROJAS During your visit today, we recorded the following information about you: Temperature Pulse Respiration Blood pressure 97.7 degrees 51/minute 16/minute 129/59 Weight Height 88 kg 1.93 m Conrad Rojas MD 02/21/2022 5:24 PM Signed NAME: Gopal Yates CLINIC NO.: [id number] DATE OF SERVICE: February 18, 2022 (Latricia) Some elements in this clinic note that are critical to medical decision making have been carefully reviewed and included from a prior clinic note dated:January 14, 2022 (Imer) Referring Provider: Dr. Douglas Juárez Additional Clinicians involved in Gopal Yates JR's care: DIAGNOSIS: [place]ated [place]: Lambda light chains CKD induced anemia ASSESSMENT: [...] bruising. 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 Overall, he is doing [...] completed 5 doses [place] [facility] Initial Visit, October 02, 2021: Gopal Yates [...] 24 hr (more content not included)... Normal [facility] Comprehensive metabolic 2000 panelon 02-18-2022 Albumin [Mass/Vol] 3.2 g/dL Low 3.9-4.9 [facility] Comment on above: Order Comment: Speci men Type: BLOOD SPECIMENOrdering Facility: [facility] Address: [address] [address] Performed By: #### 2 4323-8 ####[facility] [id number] [place] [address] ALP [Catalytic activity/Vol] 156 U/L High 38-113 [facility] Comment on above: Order Comment: Speci men Type: BLOOD SPECIMENOrdering Facility: [facility] Address: [address] [address] Performed By: #### 2 4323-8 ####[facility] [id number] [place] [address] ALT [Catalytic activity/Vol] 12 U/L Normal 10-54 [facility] Comment on above: Order Comment: Speci men Type: BLOOD SPECIMENOrdering Facility: [facility] Address: [address] [address] Performed By: #### 2 4323-8 ####[facility] [id number] [place] [address] Anion gap [Moles/Vol] 11 mmol/L Normal 9-18 [facility] Comment on above: Order Comment: Speci men Type: BLOOD SPECIMENOrdering Facility: [facility] Address: [address] [place] [address] Performed By: #### 2 4323-8 ####[facility] [id number] [place] [address] AST [Catalytic activity/Vol] 14 U/L Normal 14-40 [facility] Comment on above: Order Comment: Speci men Type: BLOOD SPECIMENOrdering Facility: [facility] Address: [address] [place] [address] Performed By: #### 2 4323-8 ####[facility] [id number] [place] [address] Bilirubin [Mass/Vol] 0.5 mg/dL Normal 0.2-1.3 [facility] Comment on above: Order Comment: Speci men Type: BLOOD SPECIMENOrdering Facility: [facility] Address: [address] [place] [address] Performed By: #### 2 4323-8 ####[facility] [id number] [place] [address] Calcium [Mass/Vol] 8.2 mg/dL Low 8.5-10.2 [facility] Comment on above: Order Comment: Speci men Type: BLOOD SPECIMENOrdering Facility: [facility] Address: [address] [address] Performed By: #### 2 4323-8 ####[facility] [id number] [place] [address] Chloride [Moles/Vol] 114 mmol/L High 97-105 [facility] Comment on above: Order Comment: Speci men Type: BLOOD SPECIMENOrdering Facility: [facility] Address: [address] [place] [address] Performed By: #### 2 4323-8 ####[facility] [id number] [place] [address] CO2 [Moles/Vol] 18 mmol/L Low 22-30 [facility] Comment on above: Order Comment: Speci men Type: BLOOD SPECIMENOrdering Facility: [facility] Address: [address] [place] [address] Performed By: #### 2 4323-8 ####[facility] [id number] [place] [address] Creatinine [Mass/Vol] 4.08 mg/dL High 0.73-1.22 [facility] Comment on above: Order Comment: Speci men Type: BLOOD SPECIMENOrdering Facility: [facility] Address: [address] [place] [address] Performed By: #### 2 4323-8 ####[facility] [id number] [place] [address] ESTIMATED GLOMERULAR FILTRATION RATE 16 mL/min/1.73m??? Low >=60 [facility] Comment on above: Order Comment: Speci men Type: BLOOD SPECIMENOrdering Facility: [facility] Address: [address] [place] [address] Result Comment: Trixie mated Glomerular Filtration Rate [...] actual GFR. Performed By: #### 2 4323-8 ####[facility] [id number] [place] [address] Glucose [Mass/Vol] 102 mg/dL High 74-99 [facility] Comment on above: Order Comment: Speci men Type: BLOOD SPECIMENOrdering Facility: [facility] Address: [address] [address] Result Comment: The [place] [employer] (ADA) provides guidance for cutoff [...] Standards of Medical Care in Diabetes 2016, [place] [employer]. Diabetes Care. 2016.39(Suppl 1). Performed By: #### 2 4323-8 ####[facility] [id number] [place] [address] Potassium [Moles/Vol] 4.1 mmol/L Normal 3.7-5.1 [facility] Comment on above: Order Comment: Speci men Type: BLOOD SPECIMENOrdering Facility: [facility] Address: [address] [address] Performed By: #### 2 4323-8 ####[facility] [id number] [place] [address] Protein [Mass/Vol] 6.8 g/dL Normal 6.3-8.0 [facility] Comment on above: Order Comment: Speci men Type: BLOOD SPECIMENOrdering Facility: [facility] Address: [address] [address] Performed By: #### 2 4323-8 ####[facility] [id number] [place] [address] Sodium [Moles/Vol] 143 mmol/L Normal 136-144 [facility] Comment on above: Order Comment: Speci men Type: BLOOD SPECIMENOrdering Facility: [facility] Address: [address] [address] Performed By: #### 2 4323-8 ####[facility] [id number] [place] [address] Urea nitrogen [Mass/Vol] 54 mg/dL High 9-24 [facility] Comment on above: Order Comment: Speci men Type: BLOOD SPECIMENOrdering Facility: [facility] Address: [address] [address] Performed By: #### 2 4323-8 ####[facility] [id number] [place] [address] CBC W Auto Differential pane l (Bld)on 02-04-2022 Basophils (Bld) [#/Vol] 0.03 10*3/uL Normal <0.11 [facility] Comment on above: Order Comment: Speci men Type: BLOOD SPECIMEN [facility] Address: [address] [address] Performed By: #### 5 7021-8 #### [facility] CLIA [id number] [address] [place] [address] Basophils/100 WBC (Bld) 0.3 % Normal [facility] Comment on above: Order Comment: Speci men Type: BLOOD SPECIMEN [facility] Address: [address] [address] Performed By: #### 5 7021-8 #### [facility] CLIA [id number] [address] [place] [address] Differential cell count method Nom (Bld) Auto Normal [facility] Comment on above: Order Comment: Speci men Type: BLOOD SPECIMEN [facility]: [facility] Address: [facility] [address] Performed By: #### 5 7021-8 #### [facility] CLIA [id number] [address] [place] [address] Eosinophils (Bld) [#/Vol] 0.13 10*3/uL Normal <0.46 [facility] Comment on above: Order Comment: Speci men Type: BLOOD SPECIMEN [facility]: [facility] Address: [address] [place] [address] Performed By: #### 5 7021-8 #### [facility] CLIA [id number] [address] [place] [address] Eosinophils/100 WBC (Bld) 1.4 % Normal [facility] Comment on above: Order Comment: Speci men Type: BLOOD SPECIMEN [facility] Address: [address] [place] [address] Performed By: #### 5 7021-8 #### [facility] CLIA [id number] [address] [place] [address] Erythrocyte distribution width (RBC) [Ratio] 14.6 % Normal 11.5-15.0 [facility] Comment on above: Order Comment: Speci men Type: BLOOD SPECIMEN [facility] Address: [address] [place] [address] Performed By: #### 5 7021-8 #### [facility] CLIA [id number] [address] [place] [address] Hematocrit (Bld) [Volume fraction] 29.9 % Low 39.0-51.0 [facility] Comment on above: Order Comment: Speci men Type: BLOOD SPECIMEN [facility] Address: [address] [place] [address] Performed By: #### 5 7021-8 #### [facility] CLIA [id number] [address] [place] [address] Hemoglobin (Bld) [Mass/Vol] 9.8 g/dL Low 13.0-17.0 [facility] Comment on above: Order Comment: Speci men Type: BLOOD SPECIMEN [facility] Address: [address] [place] [address] Performed By: #### 5 7021-8 #### [facility] CLIA [id number] [address] [place] [address] Immature granulocytes (Bld) [#/Vol] 0.03 10*3/uL Normal <0.10 [facility] Comment on above: Order Comment: Speci men Type: BLOOD SPECIMEN [facility] Address: [address] [place] [address] Performed By: #### 5 7021-8 #### [facility] CLIA [id number] [address] [place] [address] Immature granulocytes/100 WBC (Bld) 0.3 % Normal [facility] Comment on above: Order Comment: Speci men Type: BLOOD SPECIMEN [facility] Address: [address] [place] [address] Performed By: #### 5 7021-8 #### [facility] CLIA [id number] [address] [place] [address] Lymphocytes (Bld) [#/Vol] 0.88 10*3/uL Low 1.00-4.00 [facility] Comment on above: Order Comment: Speci men Type: BLOOD SPECIMEN [facility] Address: [address] [place] [address] Performed By: #### 5 7021-8 #### [facility] CLIA [id number] [address] [place] [address] Lymphocytes/100 WBC (Bld) 9.4 % Normal [facility] Comment on above: Order Comment: Speci men Type: BLOOD SPECIMEN [facility] Address: [address] [place] [address] Performed By: #### 5 7021-8 #### [facility] CLIA [id number] [address] [place] [address]12 MCH (RBC) [Entitic mass] 27.5 pg Normal 26.0-34.0 [facility] Comment on above: Order Comment: Speci men Type: BLOOD SPECIMEN [facility] Address: [address] [place] [address] Performed By: #### 5 7021-8 #### [facility] CLIA [id number] [address] [place] [address] MCHC (RBC) [Mass/Vol] 32.8 g/dL Normal 30.5-36.0 [facility] Comment on above: Order Comment: Speci men Type: BLOOD SPECIMEN [facility] Address: [address] [place] [address] Performed By: #### 5 7021-8 #### [facility] CLIA [id number] [address] [place] [address] 32762 MCV (RBC) [Entitic vol] 84.0 fL Normal 80.0-100.[address] [facility] Comment on above: Order Comment: Speci men Type: BLOOD SPECIMEN [facility] Address: [address] [place] [address] Performed By: #### 5 7021-8 #### [facility] CLIA [id number] [address] [place] [address] Monocytes (Bld) [#/Vol] 0.82 10*3/uL Normal <0.87 [facility] Comment on above: Order Comment: Speci men Type: BLOOD SPECIMEN [facility] Address: [address] [place] [address] Performed By: #### 5 7021-8 #### [facility] CLIA [id number] [address] [place] [address] Monocytes/100 WBC (Bld) 8.8 % Normal [facility] Comment on above: Order Comment: Speci men Type: BLOOD SPECIMEN [facility] Address: [address] [place] [address] Performed By: #### 5 7021-8 #### [facility] CLIA [id number] [address] [place] [address] Neutrophils (Bld) [#/Vol] 7.48 10*3/uL Normal 1.45-7.50 [facility] Comment on above: Order Comment: Speci men Type: BLOOD SPECIMEN [facility] Address: [address] [place] [address] Performed By: #### 5 7021-8 #### [facility] CLIA [id number] [address] [place] [address] Neutrophils/100 WBC (Bld) 79.8 % Normal [facility] Comment on above: Order Comment: Speci men Type: BLOOD SPECIMEN [facility] Address: [address] [place] [address] Performed By: #### 5 7021-8 #### [facility] CLIA [id number] [address] [place] [address] Nucleated RBC (Bld) [#/Vol] 10*3/uL Normal <0.01 [facility] Comment on above: Order Comment: Speci men Type: BLOOD SPECIMEN [facility] Address: [address] [place] [address] Performed By: #### 5 7021-8 #### [facility] CLIA [id number] [address] [place] [address]8740 Nucleated RBC/100 WBC (Bld) [Ratio] 0.0 /100 WBC Normal [facility] Comment on above: Order Comment: Speci men Type: BLOOD SPECIMEN [facility] Address: [address] [place], [place] [address] Performed By: #### 5 7021-8 #### [facility] CLIA [id number] [address] [place] [address] 84175 Platelet mean volume (Bld) [Entitic vol] 10.4 fL Normal 9.0-12.7 [facility] Comment on above: Order Comment: Speci men Type: BLOOD SPECIMEN [facility] Address: [address] [place], [place] [address] Performed By: #### 5 7021-8 #### [facility] CLIA [id number] [address] [place] [address] Platelets (Bld) [#/Vol] 137 10*3/uL Low 150-400 [facility] Comment on above: Order Comment: Speci men Type: BLOOD SPECIMEN [facility] Address: [address] [place] [address] Performed By: #### 5 7021-8 #### [facility] CLIA [id number] [address] [place] [address] RBC (Bld) [#/Vol] 3.56 10*6/uL Low 4.20-6.00 [facility] Comment on above: Order Comment: Speci men Type: BLOOD SPECIMEN [facility] Address: [address] [place] [address] Performed By: #### 5 7021-8 #### [facility] CLIA [id number] [address] [place] [address] 29745 WBC (Bld) [#/Vol] 9.37 10*3/uL Normal 3.70-11.00 [facility] Comment on above: Order Comment: Speci men Type: BLOOD SPECIMEN [facility] Address: [address] [place] [address] Performed By: #### 5 7021-8 #### [facility] CLIA [id number] [address] [place] [address] 48103 Comprehensive metabolic 2000 panelon 02-04-2022 Albumin [Mass/Vol] 3.4 g/dL Low 3.9-4.9 [facility] Comment on above: Order Comment: Speci men Type: BLOOD SPECIMENOrdering Facility: [facility] Address: [address] [place] [address] Performed By: #### 2 4323-8 ####[facility] [id number] [place] [address] ALP [Catalytic activity/Vol] 179 U/L High 38-113 [facility] Comment on above: Order Comment: Speci men Type: BLOOD SPECIMENOrdering Facility: [facility] Address: [address] [place] [address] Performed By: #### 2 4323-8 ####[facility] [id number] [place] [address] ALT [Catalytic activity/Vol] 25 U/L Normal 10-54 [facility] Comment on above: Order Comment: Speci men Type: BLOOD SPECIMENOrdering Facility: [facility] Address: [address] [address] Performed By: #### 2 4323-8 ####[facility] [id number] [place] [address] Anion gap [Moles/Vol] 8 mmol/L Low 9-18 [facility] Comment on above: Order Comment: Speci men Type: BLOOD SPECIMENOrdering Facility: [facility] Address: [address] [place] [address] Performed By: #### 2 4323-8 ####[facility] [id number] [place] [address] AST [Catalytic activity/Vol] 23 U/L Normal 14-40 [facility] Comment on above: Order Comment: Speci men Type: BLOOD SPECIMENOrdering Facility: [facility] Address: [address] [place] [address] Performed By: #### 2 4323-8 ####[facility] [id number] [place] [address] Bilirubin [Mass/Vol] 0.3 mg/dL Normal 0.2-1.3 [facility] Comment on above: Order Comment: Speci men Type: BLOOD SPECIMENOrdering Facility: [facility] Address: [address] [place] [address] Performed By: #### 2 4323-8 ####[facility] [id number] [place] [address] Calcium [Mass/Vol] 8.4 mg/dL Low 8.5-10.2 [facility] Comment on above: Order Comment: Speci men Type: BLOOD SPECIMENOrdering Facility: [facility] Address: [address] [address] Performed By: #### 2 4323-8 ####[facility] [id number] [place] [address] Chloride [Moles/Vol] 117 mmol/L High 97-105 [facility] Comment on above: Order Comment: Speci men Type: BLOOD SPECIMENOrdering Facility: [facility] Address: [address] [place] [address] Performed By: #### 2 4323-8 ####[facility] [id number] [place] [address] CO2 [Moles/Vol] 21 mmol/L Low 22-30 [facility] Comment on above: Order Comment: Speci men Type: BLOOD SPECIMENOrdering Facility: [facility] Address: [address] [place] [address] Performed By: #### 2 4323-8 ####[facility] [id number] [place] [address] Creatinine [Mass/Vol] 3.84 mg/dL High 0.73-1.22 [facility] Comment on above: Order Comment: Speci men Type: BLOOD SPECIMENOrdering Facility: [facility] Address: [address] [place] [address] Performed By: #### 2 4323-8 ####[facility] [id number] [place] [address] ESTIMATED GLOMERULAR FILTRATION RATE 17 mL/min/1.73m??? Low >=60 [facility] Comment on above: Order Comment: Speci men Type: BLOOD SPECIMENOrdering Facility: [facility] Address: [address] [place] [address] Result Comment: Trixie mated Glomerular Filtration Rate [...] actual GFR. Performed By: #### 2 4323-8 ####[facility] [id number] [place] [address] Glucose [Mass/Vol] 96 mg/dL Normal 74-99 [facility] Comment on above: Order Comment: Speci men Type: BLOOD SPECIMENOrdering Facility: [facility] Address: [address] [place] [address] Result Comment: The [place] [employer] (ADA) provides guidance for cutoff [...] Standards of Medical Care in Diabetes 2016, [place] [employer]. Diabetes Care. 2016.39(Suppl 1). Performed By: #### 2 4323-8 ####[facility] [id number] [place] [address] Potassium [Moles/Vol] 4.1 mmol/L Normal 3.7-5.1 [facility] Comment on above: Order Comment: Anabellei men Type: BLOOD SPECIMENOrdering Facility: [facility] Address: [address] [place] [address] Performed By: #### 2 4323-8 ####[facility] [id number] [place] [address] Protein [Mass/Vol] 6.9 g/dL Normal 6.3-8.0 [facility] Comment on above: Order Comment: Speci men Type: BLOOD SPECIMENOrdering Facility: [facility] Address: [address] [address] Performed By: #### 2 4323-8 ####[facility] [id number] [place] [address] Sodium [Moles/Vol] 146 mmol/L High 136-144 [facility] Comment on above: Order Comment: Speci men Type: BLOOD SPECIMENOrdering Facility: [facility] Address: [address] [place] [address] Performed By: #### 2 4323-8 ####[facility] [id number] [place] [address] Urea nitrogen [Mass/Vol] 56 mg/dL High 9-24 [facility] Comment on above: Order Comment: Speci men Type: BLOOD SPECIMENOrdering Facility: [facility] Address: [address] [place] [address] Performed By: #### 2 4323-8 ####[facility] [id number] [place] [address] FERRITIN BLDon 01-15-2022 Ferritin [Mass/Vol] 684.0 ng/mL High 30.3 - 5 65.7 ng/mL [facility] Iron and Iron binding capaci ty panelon 01-15-2022 Iron [Mass/Vol] 56 ug/dL 41 - 186 ug/dL [facility] Iron binding capacity [Mass/Vol] 177 ug/dL Low 232 - 386 ug/dL [facility] Iron/TIBC [Molar ratio] 31.6 % 15.0 - 57.0 % [facility] TSH BLDon 01-15-2022 TSH Qn 0.808 m[IU]/L 0.270 - 4.200 mIU/L [facility] CBC W Auto Differential pane l (Bld)on 01-14-2022 Basophils (Bld) [#/Vol] 0.03 10*3/uL Normal <0.11 [facility] Comment on above: Order Comment: Speci men Type: BLOOD SPECIMEN [facility] Address: [address] [place], [place] [address] Performed By: #### 5 7021-8 #### [facility] CLIA [id number] [address] [place] [address] 18098 Basophils/100 WBC (Bld) 0.4 % Normal [facility] Comment on above: Order Comment: Speci men Type: BLOOD SPECIMEN [facility] Address: [address] [place] [address] Performed By: #### 5 7021-8 #### [facility] CLIA [id number] [address] [place] [address] 34746 Differential cell count method Nom (Bld) Auto Normal [facility] Comment on above: Order Comment: Speci men Type: BLOOD SPECIMEN [facility] Address: [address] [place], [place] [address] Performed By: #### 5 7021-8 #### [facility] CLIA [id number] [address] [place] [address]43 Eosinophils (Bld) [#/Vol] 0.19 10*3/uL Normal <0.46 [facility] Comment on above: Order Comment: Speci men Type: BLOOD SPECIMEN [facility] Address: [address] [place] [address] Performed By: #### 5 7021-8 #### [facility] CLIA [id number] [address] [place] [address]11 Eosinophils/100 WBC (Bld) 2.2 % Normal [facility] Comment on above: Order Comment: Speci men Type: BLOOD SPECIMEN [facility] Address: [address] [place] [address] Performed By: #### 5 7021-8 #### [facility] CLIA [id number] [address] [place] [address] Erythrocyte distribution width (RBC) [Ratio] 13.9 % Normal 11.5-15.0 [facility] Comment on above: Order Comment: Speci men Type: BLOOD SPECIMEN [facility] Address: [address] [place] [address] Performed By: #### 5 7021-8 #### [facility] CLIA [id number] [address] [place] [address]44 Hematocrit (Bld) [Volume fraction] 33.7 % Low 39.0-51.0 [facility] Comment on above: Order Comment: Speci men Type: BLOOD SPECIMEN [facility] Address: [address] [place] [address] Performed By: #### 5 7021-8 #### [facility] CLIA [id number] [address] [place] [address]504 Hemoglobin (Bld) [Mass/Vol] 11.3 g/dL Low 13.0-17.0 [facility] Comment on above: Order Comment: Speci men Type: BLOOD SPECIMEN [facility] Address: [address] [place] [address] Performed By: #### 5 7021-8 #### [facility] CLIA [id number] [address] [place] [address]771 Immature granulocytes (Bld) [#/Vol] 0.03 10*3/uL Normal <0.10 [facility] Comment on above: Order Comment: Speci men Type: BLOOD SPECIMEN [facility] Address: [address] [place] [address] Performed By: #### 5 7021-8 #### [facility] CLIA [id number] [address] [place] [address]68 Immature granulocytes/100 WBC (Bld) 0.4 % Normal [facility] Comment on above: Order Comment: Speci men Type: BLOOD SPECIMEN [facility] Address: [address] [place] [address] Performed By: #### 5 7021-8 #### [facility] CLIA [id number] [address] [place] [address] 15150 Lymphocytes (Bld) [#/Vol] 0.95 10*3/uL Low 1.00-4.00 [facility] Comment on above: Order Comment: Speci men Type: BLOOD SPECIMEN [facility] Address: [address] [place] [address] Performed By: #### 5 7021-8 #### [facility] CLIA [id number] [address] [place] [address] 66731 Lymphocytes/100 WBC (Bld) 11.1 % Normal [facility] Comment on above: Order Comment: Speci men Type: BLOOD SPECIMEN [facility] Address: [address] [place] [address] Performed By: #### 5 7021-8 #### [facility] CLIA [id number] [address] [place] [address] 39741 MCH (RBC) [Entitic mass] 27.6 pg Normal 26.0-34.0 [facility] Comment on above: Order Comment: Speci men Type: BLOOD SPECIMEN [facility]: [facility] Address: [address] [place] [address] Performed By: #### 5 7021-8 #### [facility] CLIA [id number] [address] [place] [address] 62822 MCHC (RBC) [Mass/Vol] 33.5 g/dL Normal 30.5-36.0 [facility] Comment on above: Order Comment: Speci men Type: BLOOD SPECIMEN [facility] Address: [address] [place] [address] Performed By: #### 5 7021-8 #### [facility] CLIA [id number] [address] [place] [address] 76844 MCV (RBC) [Entitic vol] 82.2 fL Normal 80.0-100.[address] [facility] Comment on above: Order Comment: Speci men Type: BLOOD SPECIMEN [facility] Address: [address] [place] [address] Performed By: #### 5 7021-8 #### [facility] CLIA [id number] [address] [place] [address] 15608 Monocytes (Bld) [#/Vol] 0.89 10*3/uL High <0.87 [facility] Comment on above: Order Comment: Speci men Type: BLOOD SPECIMEN [facility]: [facility] Address: [address] [place] [address] Performed By: #### 5 7021-8 #### [facility] CLIA [id number] [address] [place] [address] 41748 Monocytes/100 WBC (Bld) 10.4 % Normal [facility] Comment on above: Order Comment: Speci men Type: BLOOD SPECIMEN [facility] Address: [address] [place] [address] Performed By: #### 5 7021-8 #### [facility] CLIA [id number] [address] [place] [address] 63257 Neutrophils (Bld) [#/Vol] 6.45 10*3/uL Normal 1.45-7.50 [facility] Comment on above: Order Comment: Speci men Type: BLOOD SPECIMEN [facility] Facility: [facility] Address: [address] [place], [place] [address] Performed By: #### 5 7021-8 #### [facility] CLIA [id number] [address] [place] [address] 73090 Neutrophils/100 WBC (Bld) 75.5 % Normal [facility] [place] Comment on above: Order Comment: Speci men Type: BLOOD SPECIMEN Ordering Facility: [facility] Address: [address] [place], [place] [id number] Performed By: #### 5 7021-8 #### [facility] CLIA [id number] [address] [place] [address] Nucleated RBC (Bld) [#/Vol] 10*3/uL Normal <0.01 [facility] Comment on above: Order Comment: Speci men Type: BLOOD SPECIMEN Ordering Facility: [facility] Address: [address] [place] [address] Performed By: #### 5 7021-8 #### [facility] CLIA [id number] [address] [place] [id number] Nucleated RBC/100 WBC (Bld) [Ratio] 0.0 /100 WBC Normal [facility] Comment on above: Order Comment: Speci men Type: BLOOD SPECIMEN Ordering Facility: [facility] Address: [address] [place] [address] Performed By: #### 5 7021-8 #### [facility] CLIA [id number] [address] [place] [address]305 Platelet mean volume (Bld) [Entitic vol] 10.1 fL Normal 9.0-12.7 [facility] Comment on above: Order Comment: Speci men Type: BLOOD SPECIMEN Ordering Facility: [facility] Address: [address] [place] [address] Performed By: #### 5 7021-8 #### [facility] CLIA [id number] [address] [place] [address]80 Platelets (Bld) [#/Vol] 168 10*3/uL Normal 150-400 [facility] Comment on above: Order Comment: Speci men Type: BLOOD SPECIMEN Ordering Facility: [facility] Address: [address] [place], [place] [address] Performed By: #### 5 7021-8 #### [facility] CLIA [id number] [address] [place] [address] 10331 RBC (Bld) [#/Vol] 4.10 10*6/uL Low 4.20-6.00 [facility] Comment on above: Order Comment: Speci men Type: BLOOD SPECIMEN Ordering Facility: [facility] Address: [address] [place], [place] [address] Performed By: #### 5 7021-8 #### [facility] CLIA [id number] [address] [place] [address]698 WBC (Bld) [#/Vol] 8.54 10*3/uL Normal 3.70-11.00 [facility] Comment on above: Order Comment: Speci men Type: BLOOD SPECIMEN Ordering Facility: [facility] Address: [address] [place], [place] [address] Performed By: #### 5 7021-8 #### [facility] CLIA [id number] [address] [place] [address] CNOVSPon 01-14-2022 CNOVSP Visit (SP) Office ([place]) GOPAL YATES JR ([id number]) 1965 M Date Time Provider Department 01/14/22 2:30 PM MONIK DOTSON During your visit today, we recorded the following information about you: Temperature Pulse Respiration Blood pressure 97.6 degrees 57/minute 16/minute 130/58 Weight Height 86.5 kg 1.93 m Monik Dotson APRN.CNP 01/16/2022 4:13 PM Signed NAME: Gopal Yates [facility] NO.: [id number] DATE OF SERVICE: January 14, 2022 (Imer) [...] to Holiday) 3. Will obtain records [place] [facility] mainly interested in IV Iron dates. CURRENT [...] bruising. 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 Overall, he is doing [...] completed 5 doses of IV iron at [facility]. Initial Visit, October 02, 2021: Gopal Yates [...] mg tab (more content not included)... Normal [facility] Comprehensive metabolic 2000 panelon 01-14-2022 Albumin [Mass/Vol] 3.4 g/dL Low 3.9-4.9 [facility] Comment on above: Order Comment: Speci men Type: BLOOD SPECIMENOrdering Facility: [facility] Address: [address] [address] Performed By: #### 2 4323-8 ####[facility] [id number] [place] [address] ALP [Catalytic activity/Vol] 190 U/L High 38-113 [facility] Comment on above: Order Comment: Speci men Type: BLOOD SPECIMENOrdering Facility: [facility] Address: [address] Performed By: #### 2 4323-8 ####[facility] [id number] [place] [address] ALT [Catalytic activity/Vol] 24 U/L Normal 10-54 [facility] Comment on above: Order Comment: Speci men Type: BLOOD SPECIMENOrdering Facility: [facility] Address: [address] Performed By: #### 2 4323-8 ####[facility]CLIA [id number] [place] [address] Anion gap [Moles/Vol] 11 mmol/L Normal 9-18 [facility] Comment on above: Order Comment: Speci men Type: BLOOD SPECIMENOrdering Facility: [facility] Address: [address] [place] [address] Performed By: #### 2 4323-8 ####[facility] [id number] [place] [address] AST [Catalytic activity/Vol] 19 U/L Normal 14-40 [facility] Comment on above: Order Comment: Speci men Type: BLOOD SPECIMENOrdering Facility: [facility] Address: [address] [place] [address] Performed By: #### 2 4323-8 ####[facility] [id number] [place] [address] Bilirubin [Mass/Vol] 0.4 mg/dL Normal 0.2-1.3 [facility] Comment on above: Order Comment: Speci men Type: BLOOD SPECIMENOrdering Facility: [facility] Address: [address] [place] [address] Performed By: #### 2 4323-8 ####[facility] [id number] [place] [address] Calcium [Mass/Vol] 8.5 mg/dL Normal 8.5-10.2 [facility] Comment on above: Order Comment: Speci men Type: BLOOD SPECIMENOrdering Facility: [facility] Address: [address] [place] [address] Performed By: #### 2 4323-8 ####[facility]IA [id number] [place] [address] Chloride [Moles/Vol] 112 mmol/L High 97-105 [facility] Comment on above: Order Comment: Speci men Type: BLOOD SPECIMENOrdering Facility: [facility] Address: [address] [place] [address] Performed By: #### 2 4323-8 ####[facility] [id number] [place] [address] CO2 [Moles/Vol] 19 mmol/L Low 22-30 [facility] Comment on above: Order Comment: Speci men Type: BLOOD SPECIMENOrdering Facility: [facility] Address: [address] [place] [address] Performed By: #### 2 4323-8 ####[facility] [id number] [place] [address] Creatinine [Mass/Vol] 4.06 mg/dL High 0.73-1.22 [facility] Comment on above: Order Comment: Speci men Type: BLOOD SPECIMENOrdering Facility: [facility] Address: [address] [place] [address] Performed By: #### 2 4323-8 ####[facility]IA [id number] [place] [address] ESTIMATED GLOMERULAR FILTRATION RATE 16 mL/min/1.73m??? Low >=60 [facility] Comment on above: Order Comment: Speci men Type: BLOOD SPECIMENOrdering Facility: [facility] Address: [address] [place] [address] Result Comment: Trixie mated Glomerular Filtration Rate [...] actual GFR. Performed By: #### 2 4323-8 ####[facility]IA [id number] [place] [address] Glucose [Mass/Vol] 90 mg/dL Normal 74-99 [facility] Comment on above: Order Comment: Speci men Type: BLOOD SPECIMENOrdering Facility: [facility] Address: [address] [place], [place] [address] Result Comment: The [place] Diabetes [employer] (ADA) provides guidance for cutoff [...] Standards of Medical Care in Diabetes 2016, [place] [employer]. Diabetes Care. 2016.39(Suppl 1). Performed By: #### 2 4323-8 ####[facility]IA [id number] [place] [address] Potassium [Moles/Vol] 4.1 mmol/L Normal 3.7-5.1 [facility] Comment on above: Order Comment: Speci men Type: BLOOD SPECIMENOrdering Facility: [facility] Address: [address] [place], [place] [address] Performed By: #### 2 4323-8 ####[facility]IA [id number] [place] [address] Protein [Mass/Vol] 7.2 g/dL Normal 6.3-8.0 [facility] Comment on above: Order Comment: Speci men Type: BLOOD SPECIMENOrdering Facility: [facility] Address: [address] [place], [place] [address] Performed By: #### 2 4323-8 ####[facility]IA [id number] [place] [address] Sodium [Moles/Vol] 142 mmol/L Normal 136-144 [facility] Comment on above: Order Comment: Speci men Type: BLOOD SPECIMENOrdering Facility: [facility] Address: [address] [place] [address] Performed By: #### 2 4323-8 ####[facility]CLIA [id number] [place] [address] Urea nitrogen [Mass/Vol] 61 mg/dL High 9-24 [facility] Comment on above: Order Comment: Speci men Type: BLOOD SPECIMENOrdering Facility: [facility] Address: [address] [place] [address] Performed By: #### 2 4323-8 ####[facility]IA [id number] [place] [address] Ferritin SerPl-mCncon 2021 Ferritin [Mass/Vol] 684.0 ng/mL High 30.3-565.7 [facility] Comment on above: Order Comment: Speci men Type: BLOOD SPECIMENOrdering Facility: [facility] Address: [address] [place] [address] Performed By: #### 2 276-4, 44072-0, 3016-3 ####[facility] LABCLIA [id number] [place] [address] [place] Iron and Iron binding capaci ty panelon 01-14-2022 Iron [Mass/Vol] 56 ug/dL Normal 41-186 [facility] Comment on above: Order Comment: Speci men Type: BLOOD SPECIMENOrdering Facility: [facility] Address: [address] [place], [place] [address] Performed By: #### 2 276-4, 72637-4, 3016-3 ####[facility] LABCLIA [id number] [place] [address] [place] Iron binding capacity [Mass/Vol] 177 ug/dL Low 232-386 [facility] Comment on above: Order Comment: Speci men Type: BLOOD SPECIMENOrdering Facility: [facility] Address: [address] [place], [place] [address] Performed By: #### 2 276-4, 64137-4, 3016-3 ####[facility] LABCLIA [id number] [address] Iron/TIBC [Molar ratio] 31.6 % Normal 15.0-57.[address] [facility] Comment on above: Order Comment: Speci men Type: BLOOD SPECIMENOrdering Facility: [facility] Address: [address] [place] [address] Performed By: #### 2 276-4, 28589-6, 3016-3 ####[facility] LABCLIA [id number] [address] [place] TSH SerPl-aCncon 01-14-2022 TSH Qn 0.808 m[IU]/L Normal 0.270-4.200 [facility] Comment on above: Order Comment: Speci men Type: BLOOD SPECIMENOrdering Facility: [facility] Address: [address] [place] [address] Performed By: #### 2 276-4, 52187-0, 3016-3 ####[facility] LABIA [id number] [address] [place] CBC W Auto Differential pane l (Bld)on 12-17-2021 Basophils (Bld) [#/Vol] 0.03 10*3/uL Normal <0.11 [facility] Comment on above: Order Comment: Speci men Type: BLOOD SPECIMENOrdering Facility: [facility] Address: [address] [place], [place] [address] Performed By: #### 5 7021-8 ####[facility]IA [id number] [place] [address] Basophils/100 WBC (Bld) 0.5 % Normal [facility] Comment on above: Order Comment: Speci men Type: BLOOD SPECIMENOrdering Facility: [facility] Address: [address] [place] [address] Performed By: #### 5 7021-8 ####[facility]IA [id number] [place] [address] Differential cell count method Nom (Bld) Auto Normal [facility] Comment on above: Order Comment: Speci men Type: BLOOD SPECIMENOrdering Facility: [facility] Address: [address] [place] [address] Performed By: #### 5 7021-8 ####[facility]IA [id number] [place] [address] Eosinophils (Bld) [#/Vol] 0.19 10*3/uL Normal <0.46 [facility] Comment on above: Order Comment: Speci men Type: BLOOD SPECIMENOrdering Facility: [facility] Address: [address] [place] [address] Performed By: #### 5 7021-8 ####[facility] [id number] [place] [address] Eosinophils/100 WBC (Bld) 3.3 % Normal [facility] Comment on above: Order Comment: Speci men Type: BLOOD SPECIMENOrdering Facility: [facility] Address: [address] [place] [address] Performed By: #### 5 7021-8 ####[facility]IA [id number] [place] [address] Erythrocyte distribution width (RBC) [Ratio] 13.8 % Normal 11.5-15.0 [facility] Comment on above: Order Comment: Speci men Type: BLOOD SPECIMENOrdering Facility: [facility] Address: [address] [place] [address] Performed By: #### 5 7021-8 ####[facility]IA [id number] [place] [address] Hematocrit (Bld) [Volume fraction] 36.5 % Low 39.0-51.0 [facility] Comment on above: Order Comment: Speci men Type: BLOOD SPECIMENOrdering Facility: [facility] Address: [address] [place] [address] Performed By: #### 5 7021-8 ####[facility]IA [id number] [place] [address] Hemoglobin (Bld) [Mass/Vol] 12.0 g/dL Low 13.0-17.0 [facility] Comment on above: Order Comment: Speci men Type: BLOOD SPECIMENOrdering Facility: [facility] Address: [address] [place] [address] Performed By: #### 5 7021-8 ####[facility]IA [id number] [place] [address] IMMATURE GRAN % 0.3 % Normal [facility] Comment on above: Order Comment: Speci men Type: BLOOD SPECIMENOrdering Facility: [facility] Address: [address] [place] [address] Performed By: #### 5 7021-8 ####[facility]CLIA [id number] [place] [address] IMMATURE GRAN ABS <0.03 Normal <0.10 [facility] Comment on above: Order Comment: Speci men Type: BLOOD SPECIMENOrdering Facility: [facility] Address: [address] [place] [address] Performed By: #### 5 7021-8 ####[facility]IA [id number] [place] [address] Lymphocytes (Bld) [#/Vol] 0.80 10*3/uL Low 1.00-4.00 [facility] Comment on above: Order Comment: Speci men Type: BLOOD SPECIMENOrdering Facility: [facility] Address: [address] [place] [address] Performed By: #### 5 7021-8 ####[facility]CLIA [id number] [place] [address] Lymphocytes/100 WBC (Bld) 13.9 % Normal [facility] Comment on above: Order Comment: Speci men Type: BLOOD SPECIMENOrdering Facility: [facility] Address: [address] [place] [address] Performed By: #### 5 7021-8 ####[facility]CLIA [id number] [place] [address] MCH (RBC) [Entitic mass] 27.5 pg Normal 26.0-34.0 [facility] Comment on above: Order Comment: Speci men Type: BLOOD SPECIMENOrdering Facility: [facility] Address: [address] [place] [address] Performed By: #### 5 7021-8 ####[facility]CLIA [id number] [place] [address] MCHC (RBC) [Mass/Vol] 32.9 g/dL Normal 30.5-36.0 [facility] Comment on above: Order Comment: Speci men Type: BLOOD SPECIMENOrdering Facility: [facility] Address: [address] [place] [address] Performed By: #### 5 7021-8 ####[facility]CLIA [id number] [place] [address] MCV (RBC) [Entitic vol] 83.7 fL Normal 80.0-100.[address] [facility] Comment on above: Order Comment: Speci men Type: BLOOD SPECIMENOrdering Facility: [facility] Address: [address] [place], [place] [address] Performed By: #### 5 7021-8 ####[facility]CLIA [id number] [place] [address] Monocytes (Bld) [#/Vol] 0.60 10*3/uL Normal <0.87 [facility] Comment on above: Order Comment: Speci men Type: BLOOD SPECIMENOrdering Facility: [facility] Address: [address] [place], [place] [address] Performed By: #### 5 7021-8 ####[facility] LABCLIA [id number] [place] [address] Monocytes/100 WBC (Bld) 10.5 % Normal [facility] Comment on above: Order Comment: Speci men Type: BLOOD SPECIMENOrdering Facility: [facility] Address: [address] [place], [place] [address] Performed By: #### 5 7021-8 ####[facility]CLIA [id number] [place] [address] Neutrophils (Bld) [#/Vol] 4.10 10*3/uL Normal 1.45-7.50 [facility] Comment on above: Order Comment: Speci men Type: BLOOD SPECIMENOrdering Facility: [facility] Address: [address] [place] [address] Performed By: #### 5 7021-8 ####[facility] LABIA [id number] [place] [address] Neutrophils/100 WBC (Bld) 71.5 % Normal [facility] Comment on above: Order Comment: Speci men Type: BLOOD SPECIMENOrdering Facility: [facility] Address: [address] [place], [place] [address] Performed By: #### 5 7021-8 ####[facility]CLIA [id number] [place] [address] Nucleated RBC (Bld) [#/Vol] 10*3/uL Normal <0.01 [facility] Comment on above: Order Comment: Speci men Type: BLOOD SPECIMENOrdering Facility: [facility] Address: [address] [place], [place] [address] Performed By: #### 5 7021-8 ####[facility] LABCLIA [id number] [place] [address] Nucleated RBC/100 WBC (Bld) [Ratio] 0.0 /100 WBC Normal [facility] Comment on above: Order Comment: Speci men Type: BLOOD SPECIMENOrdering Facility: [facility] Address: [address] [place] [address] Performed By: #### 5 7021-8 ####[facility]CLIA [id number] [place] [address] Platelet mean volume (Bld) [Entitic vol] 10.0 fL Normal 9.0-12.7 [facility] Comment on above: Order Comment: Speci men Type: BLOOD SPECIMENOrdering Facility: [facility] Address: [address] [place] [address] Performed By: #### 5 7021-8 ####[facility]CLIA [id number] [place] [address] Platelets (Bld) [#/Vol] 174 10*3/uL Normal 150-400 [facility] Comment on above: Order Comment: Speci men Type: BLOOD SPECIMENOrdering Facility: [facility] Address: [address] [place] [address] Performed By: #### 5 7021-8 ####[facility]CLIA [id number] [place] [address] RBC (Bld) [#/Vol] 4.36 10*6/uL Normal 4.20-6.00 [facility] Comment on above: Order Comment: Speci men Type: BLOOD SPECIMENOrdering Facility: [facility] Address: [address] [place] [address] Performed By: #### 5 7021-8 ####[facility]CLIA [id number] [place] [address] WBC (Bld) [#/Vol] 5.74 10*3/uL Normal 3.70-11.00 [facility] Comment on above: Order Comment: Speci men Type: BLOOD SPECIMENOrdering Facility: [facility] Address: [address] [place] [address] Performed By: #### 5 7021-8 ####[facility] LABCLIA [id number] [place] [address] CNOVSPon 12-17-2021 CNOVSP Visit (SP) Office (HEMAS[place]) GOPAL YATES JR ([id number]) 1965 M Date Time Provider Department 12/17/21 2:15 PM CONRAD ROJAS During your visit today, we recorded the following information about you: Temperature Pulse Respiration Blood pressure 97.7 degrees 56/minute 16/minute 132/65 Weight Height 87.8 kg 1.93 m Conrad Rojas MD 12/17/2021 4:03 PM Signed NAME: Gopal Yates CLINIC NO.: [id number] DATE OF SERVICE: December 17, 2021 (Latricia) [...] possible Aranesp. 3. Will obtain records from [facility] mainly interested in IV Iron dates. CURRENT [...] completed 5 doses of IV iron at [facility]. Initial Visit, October 02, 2021: Gopal Yates [...] 12/17/2021 174 (more content not included)... Normal [facility] Comprehensive metabolic 2000 panelon 12-17-2021 Albumin [Mass/Vol] 3.4 g/dL Low 3.9-4.9 [facility] Comment on above: Order Comment: Speci men Type: BLOOD SPECIMENOrdering Facility: [facility] Address: [address] [place], [place] [address] Performed By: #### 2 4323-8 ####[facility] LABIA [id number] [place] [address] ALP [Catalytic activity/Vol] 159 U/L High 38-113 [facility] Comment on above: Order Comment: Speci men Type: BLOOD SPECIMENOrdering Facility: [facility] Address: [address] [place], [place] [address] Performed By: #### 2 4323-8 ####[facility] LABIA [id number] [place] [address] ALT [Catalytic activity/Vol] 12 U/L Normal 10-54 [facility] Comment on above: Order Comment: Speci men Type: BLOOD SPECIMENOrdering Facility: [facility] Address: [address] [place] [address] Performed By: #### 2 4323-8 ####[facility]CLIA [id number] [place] [address] Anion gap [Moles/Vol] 9 mmol/L Normal 9-18 [facility] Comment on above: Order Comment: Speci men Type: BLOOD SPECIMENOrdering Facility: [facility] Address: [address] [place] [address] Performed By: #### 2 4323-8 ####[facility]CLIA [id number] [place] [address] AST [Catalytic activity/Vol] 14 U/L Normal 14-40 [facility] Comment on above: Order Comment: Speci men Type: BLOOD SPECIMENOrdering Facility: [facility] Address: [address] [place] [address] Performed By: #### 2 4323-8 ####[facility]CLIA [id number] [place] [address] Bilirubin [Mass/Vol] 0.4 mg/dL Normal 0.2-1.3 [facility] Comment on above: Order Comment: Speci men Type: BLOOD SPECIMENOrdering Facility: [facility] Address: [address] [place] [address] Performed By: #### 2 4323-8 ####[facility]CLIA [id number] [place] [address] Calcium [Mass/Vol] 8.3 mg/dL Low 8.5-10.2 [facility] Comment on above: Order Comment: Speci men Type: BLOOD SPECIMENOrdering Facility: [facility] Address: [address] [place] [address] Performed By: #### 2 4323-8 ####[facility]CLIA [id number] [place] [address] Chloride [Moles/Vol] 108 mmol/L High 97-105 [facility] Comment on above: Order Comment: Speci men Type: BLOOD SPECIMENOrdering Facility: [facility] Address: [address] [place] [address] Performed By: #### 2 4323-8 ####[facility]CLIA [id number] [place] [address] CO2 [Moles/Vol] 21 mmol/L Low 22-30 [facility] Comment on above: Order Comment: Speci men Type: BLOOD SPECIMENOrdering Facility: [facility] Address: [address] [place] [address] Performed By: #### 2 4323-8 ####[facility]CLIA [id number] [place] [address] Creatinine [Mass/Vol] 3.84 mg/dL High 0.73-1.22 [facility] Comment on above: Order Comment: Speci men Type: BLOOD SPECIMENOrdering Facility: [facility] Address: [address] [place] [address] Performed By: #### 2 4323-8 ####[facility]CLIA [id number] [place] [address] ESTIMATED GLOMERULAR FILTRATION RATE 17 mL/min/1.73m??? Low >=60 [facility] Comment on above: Order Comment: Speci men Type: BLOOD SPECIMENOrdering Facility: [facility] Address: [address] [place] [address] Result Comment: Trixie mated Glomerular Filtration Rate [...] actual GFR. Performed By: #### 2 4323-8 ####[facility]CL[facility] [id number] [place] [address] Glucose [Mass/Vol] 87 mg/dL Normal 74-99 [facility] Comment on above: Order Comment: Speci men Type: BLOOD SPECIMENOrdering Facility: [facility] Address: [address] [place], [place] [id number] Result Comment: The [place] [employer] (ADA) provides guidance for cutoff [...] Standards of Medical Care in Diabetes 2016, [place] [employer]. Diabetes Care. 2016.39(Suppl 1). Performed By: #### 2 4323-8 ####[facility] [id number] [place] [address] Potassium [Moles/Vol] 4.0 mmol/L Normal 3.7-5.1 [facility] Comment on above: Order Comment: Speci men Type: BLOOD SPECIMENOrdering Facility: [facility] Address: [address] [place] [phone] Performed By: #### 2 4323-8 ####[facility] [id number] [place] [address] Protein [Mass/Vol] 6.8 g/dL Normal 6.3-8.0 [facility] Comment on above: Order Comment: Speci men Type: BLOOD SPECIMENOrdering Facility: [facility] Address: [address] [place], [place] [address] Performed By: #### 2 4323-8 ####[facility] [id number] [place] [address] Sodium [Moles/Vol] 138 mmol/L Normal 136-144 [facility] Comment on above: Order Comment: Speci men Type: BLOOD SPECIMENOrdering Facility: [facility] Address: [address] [place] [address] Performed By: #### 2 4323-8 ####[facility] [id number] [place] [address] Urea nitrogen [Mass/Vol] 50 mg/dL High 9-24 [facility] [place] Comment on above: Order Comment: Speci men Type: BLOOD SPECIMENOrdering Facility: [facility] Address: [address] [place] [address] Performed By: #### 2 4323-8 ####[facility] [id number] [place] [address] HEP B SURFACE ANTIGEN SCREEN on 12-05-2021 HBsAg Screen Negative Normal Negative [facility] Comment on above: Performed By: #### H BSANS #### [facility] [address] [place], [place] [address] Dr. Shilo Lam PTH INTACTon 12-05-2021 PTH, Intact 62 pg/mL Normal 15-65 [facility] Comment on above: Performed By: #### V ITAD, FERR, FETIBC, B12FOL #### [facility] [address] [place], [place] [address] Dr. Shilo Lam VIT D 25-[place] LABCORPon 2021 Vitamin D, 25-Hydroxy 50.9 ng/mL Normal 30.0-100.0 [facility] Comment on above: Result Comment: Laura min D deficiency has been defined by the [place] of Medicine and an Endocrine Society practice guideline as a level of serum 25-OH vitamin D less than 20 ng/mL (1,2). The Endocrine Society went on to further define vitamin D insufficiency as a level between 21 and 29 ng/mL (2). 1. IOM ([place] of [employer]). 2010. Dietary reference intakes for calcium and D. [place]: The National Academies Press. 2. Sherine MORILLO, Violetta MCDONALD, [place] REY, et al. Evaluation, treatment, and prevention of vitamin D deficiency: an Endocrine Society clinical practice guideline. JCEM. 2011 Sep; 96(7):1911-30. Performed By: #### H [facility] #### [facility] [address] [place] [address] [address] Shilo Garzon 12-04-2021 CNPN Telephone (HEMASA) GOPAL YATES JR ([id number]) 1965 M Date Time Provider Department 12/04/21 MONIK DOTSON During your visit today, we recorded the following information about you: Dana Simpson [facility] 12/04/2021 10:17 AM Signed Brionna from [facility] called back regarding patients iron infusions. She said he got 2 sets of 5 doses. Dates of infusion are: 07/22/21, 07/31/21, 08/06/21, 08/13/21, 08/20/21 10/20/21, 10/27/21, 11/03/21, 11/10/21, 11/17/21 Monik Dotson APRN.[facility] 12/04/2021 11:47 AM Signed Thanks! Monik Dotson APRN.[employer]RE[employer] Allergies As of Date: 12/04/2021 Noted Allergy Reaction SULFA (SULFONAMIDE ANTIBIOTICS) 10/01/2021 16 - Unknown Date Reviewed: 12/04/2021 Reviewed by: Monik Dotson APRN.STREET [employer]PECT[employer] - Fully Assessed Reason for Visit: Infusions [...] Status:Closed by DANA APPLE on 12/04/21 Normal [facility] [place] FERRITINon 12-04-2021 Ferritin [Mass/Vol] 272.0 ng/mL Normal 26.0-388.0 [facility] Comment on above: Performed By: #### H BSANS #### [facility] [address] [address] [address] Shilo Lam IRON AND TIBCon 12-04-2021 % SATURATION 32.8 % Normal [facility] Comment on above: Performed By: #### H BSANS #### [facility] [address] [address] [address] Shilo Lam Iron [Mass/Vol] 57.0 ug/dL Critically low 65.0-175.0 [facility] Comment on above: Performed By: #### H BSANS #### [facility] [address] [address] [address] Shilo Lam TIBC DIRECT 174.0 ug/dL Critically low 250.0-450.0 [facility] Comment on above: Performed By: #### H BSANS #### [facility] [address] [address] [address] Shilo Lam MAGNESIUMon 12-04-2021 Magnesium [Mass/Vol] 1.9 mg/dL Normal 1.8-2.4 [facility] Comment on above: Performed By: #### H BSANS #### [facility] [address] [place] [address] Dr. Shilo Lam PROF 14(COMP METB)on 022 Albumin [Mass/Vol] 2.9 g/dL Critically low 3.4-5.0 [facility] Comment on above: Performed By: #### H BSANS #### [facility] [address] [place] [address] Dr. Shilo Lam Albumin/Globulin [Mass ratio] 0.6 {ratio} Normal [facility] Comment on above: Performed By: #### H BSANS #### [facility] [address] [place] [address] Dr. Shilo Lam ALP [Catalytic activity/Vol] 150 U/L Critically high 46-116 [facility] Comment on above: Performed By: #### H BSANS #### [facility] [address] [place] [address] Dr. Shilo Lam ALT [Catalytic activity/Vol] 21 U/L Normal 16-63 [facility] Comment on above: Performed By: #### H BSANS #### [facility] [address] [place] [address] Dr. Shilo Lam Anion gap [Moles/Vol] 14.7 mmol/L Normal [facility] Comment on above: Performed By: #### H BSANS #### [facility] [address] [place] [address] Dr. Shilo Lam AST [Catalytic activity/Vol] 19 U/L Normal 15-37 [facility] Comment on above: Performed By: #### H BSANS #### [facility] [address] [place] [address] Dr. Shilo Lam Bilirubin [Mass/Vol] 0.6 mg/dL Normal 0.2-1.0 [facility] Comment on above: Performed By: #### H BSANS #### [facility] [address] [place] [address] Dr. Shilo Lam Calcium [Mass/Vol] 8.4 mg/dL Critically low 8.5-10.1 Th e [facility] Comment on above: Performed By: #### H BSANS #### [facility] [address] [place] [address] Dr. Shilo Lam Chloride [Moles/Vol] 109 mmol/L Critically high 98-107 [facility] Comment on above: Performed By: #### H BSANS #### [facility] [address] [place] [address] Dr. Shilo Lam CO2 [Moles/Vol] 20.4 mmol/L Critically low 21.0-32.0 [facility] Comment on above: Performed By: #### H BSANS #### [facility] [address] [place] [address] Dr. Shilo Lam Creatinine [Mass/Vol] 3.71 mg/dL Critically high 0.70-1.30 [facility] Comment on above: Performed By: #### H BSANS #### [facility] [address] [place] [address] Dr. Shilo Lam EGFR-AF ROMANIAN 21 mL/min/1.73m2 Critically low >=60 [facility] Comment on above: Performed By: #### H BSANS #### [facility] [address] [place] [address] Dr. Shilo Lam EGFR-NON AF ROMANIAN 17 mL/min/1.73m2 Critically low >=60 [facility] Comment on above: Performed By: #### H BSANS #### [facility] [address] [place] [address] Dr. Shilo Lam Globulin (S) [Mass/Vol] 4.5 g/dL Normal [facility] Comment on above: Performed By: #### H BSANS #### [facility] [address] [place] [address] Dr. Shilo Lam Glucose [Mass/Vol] 87 mg/dL Normal 74-106 [facility] Comment on above: Performed By: #### H BSANS #### [facility] [address] [place] [address] Dr. Shilo Lam Potassium [Moles/Vol] 4.1 mmol/L Normal 3.5-5.1 [facility] Comment on above: Performed By: #### H BSANS #### [facility] [address] [place] [address] [address] Shilo Lam Protein [Mass/Vol] 7.4 g/dL Normal 6.4-8.2 [facility] Comment on above: Performed By: #### H BSANS #### [facility] [address] [place] [address] [address] Shilo Lam Sodium [Moles/Vol] 140 mmol/L Normal 136-145 [facility] Comment on above: Performed By: #### H BSANS #### [facility] [address] [place] [address] Dr. Shilo Lam Urea nitrogen [Mass/Vol] 53.0 mg/dL Critically high 7.0-18.0 [facility] Comment on above: Performed By: #### H BSANS #### [facility] [address] [place] [address] Dr. Shilo Lam Urea nitrogen/Creatinine [Mass ratio] 14.3 mg/mg Normal [facility] Comment on above: Performed By: #### H BSANS #### [facility] [address] [place] [address] Dr. Shilo Lam UA RANDOMon 12-04-2021 Bilirubin Ql (U) Negative Normal NEGATIVE [facility] Comment on above: Performed By: #### H H #### [facility] [address] [place] [address] Dr. Shilo Lam Clarity (U) CLEAR Normal CLEAR [facility] Comment on above: Performed By: #### H H #### [facility] [address] [place] [address] [address] Shilo Lam Color (U) YELLOW Normal YELLOW [facility] Comment on above: Performed By: #### H H #### [facility] [address] [place] [address] Dr. Shilo Lam Glucose Ql (U) Negative Normal NEGATIVE [facility] Comment on above: Performed By: #### H H #### [facility] [address] [place] [address] Dr. Shilo Lam Hemoglobin Ql (U) Negative Normal NEGATIVE [facility] Comment on above: Performed By: #### H H #### [facility] [address] [place] [address] Dr. Shilo Lam Ketones Ql (U) Negative Normal NEGATIVE [facility] Comment on above: Performed By: #### H H #### [facility] [address] [place] [address] Dr. Shilo Lam LEUKOCYTES Negative Normal NEGATIVE [facility] Comment on above: Performed By: #### H H #### [facility] [address] [place] [address] Dr. Shilo Lam Nitrite Ql (U) Negative Normal NEGATIVE [facility] Comment on above: Performed By: #### H H #### [facility] [address] [place] [address] Dr. Shilo Lam pH (U) 6.5 [pH] Normal 5-9 [facility] Comment on above: Performed By: #### H H #### [facility] [address] [place] [address] Dr. Shilo Lam SPEC GRAVITY 1.015 Normal 1.005-<=1.025 [facility] Comment on above: Performed By: #### H H #### [facility] [address] [place] [address] Dr. Shilo Lam UA PROTEIN Negative Normal NEGATIVE/ TRACE [facility] Comment on above: Performed By: #### H H #### [facility] [address] [place] [address] Dr. Shilo Lam Urobilinogen Qn (U) 0.2 {Gama'U}/dL Normal 0.2 - 1. 0 [facility] Comment on above: Performed By: #### H H #### [facility] [address] [place] [address] Dr. Shilo Lam URIC ACID SERUMon 12-04-2021 Urate [Mass/Vol] 5.6 mg/dL Normal 3.5-7.2 [facility] Comment on above: Performed By: #### H BSANS #### [facility] [address] [place] [address] Dr. Shilo Lam URINE T PROTEIN CREAT RATIOo n 12-04-2021 Protein (U) [Mass/Vol] 648.0 mg/dL Critically high <=12.0 [facility] Comment on above: Performed By: #### V ITAD, FERR, FETIBC, B12FOL #### [facility] [address] [place] [address] Dr. Shilo Lam UR PROT CREAT RAT 11.10 Normal [facility] Comment on above: Performed By: #### V ITAD, FERR, FETIBC, B12FOL #### [facility] [address] [place] [address] Dr. Shilo Lam URINE CREAT 58.37 mg/dL Normal 20.00-300.00 [facility] Comment on above: Performed By: #### V ITAD, FERR, FETIBC, B12FOL #### [facility] [address] [place] [address] Dr. Shilo Lam VIT B12 AND FOLATEon 022 Cobalamin (Vitamin B12) [Mass/Vol] 600.0 pg/mL Normal 193.0-986.0 [facility] Comment on above: Performed By: #### H BSANS #### [facility] [address] [place] [address] Dr. Shilo Lam FOLATE 9.00 ng/mL Normal 8.60-58.90 [facility] Comment on above: Performed By: #### H BSANS #### [facility] [address] [place] [address] Dr. Shilo Lam CBC W Auto Differential pane l (Bld)on 12-03-2021 Basophils (Bld) [#/Vol] 0.03 10*3/uL Normal <0.11 [facility] [place] Comment on above: Order Comment: Speci men Type: BLOOD SPECIMENOrdering Facility: [facility] Address: [address] [place] [phone] Performed By: #### 5 7021-8 ####[facility] [id number] [place] [address] Basophils/100 WBC (Bld) 0.4 % Normal [facility] Comment on above: Order Comment: Speci men Type: BLOOD SPECIMENOrdering Facility: [facility] Address: [address] [place] [address] Performed By: #### 5 7021-8 ####[facility] [id number] [place] [address] Differential cell count method Nom (Bld) Auto Normal [facility] [place] Comment on above: Order Comment: Speci men Type: BLOOD SPECIMENOrdering Facility: [facility] Address: [address] [place] [address] Performed By: #### 5 7021-8 ####[facility] [id number] [place] [address] Eosinophils (Bld) [#/Vol] 0.24 10*3/uL Normal <0.46 [facility] [place] Comment on above: Order Comment: Speci men Type: BLOOD SPECIMENOrdering Facility: [facility] Address: [address] [place] [address] Performed By: #### 5 7021-8 ####[facility] [id number] [place] [address] Eosinophils/100 WBC (Bld) 3.5 % Normal [facility] [place] Comment on above: Order Comment: Speci men Type: BLOOD SPECIMENOrdering Facility: [facility] Address: [address] [place] [address] Performed By: #### 5 7021-8 ####[facility]IA [id number] [place] [address] Erythrocyte distribution width (RBC) [Ratio] 15.4 % High 11.5-15.0 [facility] [place] Comment on above: Order Comment: Speci men Type: BLOOD SPECIMENOrdering Facility: [facility] Address: [address] [place] [address] Performed By: #### 5 7021-8 ####[facility] [id number] [place] [address] Hematocrit (Bld) [Volume fraction] 36.6 % Low 39.0-51.0 [facility] [place] Comment on above: Order Comment: Speci men Type: BLOOD SPECIMENOrdering Facility: [facility] Address: [address] [place] [address] Performed By: #### 5 7021-8 ####[facility]IA [id number] [place] [address] Hemoglobin (Bld) [Mass/Vol] 11.8 g/dL Low 13.0-17.0 [facility] [place] Comment on above: Order Comment: Speci men Type: BLOOD SPECIMENOrdering Facility: [facility] Address: [address] [place] [address] Performed By: #### 5 7021-8 ####[facility] [id number] [place] [address] IMMATURE GRAN % 0.3 % Normal [facility] [place] Comment on above: Order Comment: Speci men Type: BLOOD SPECIMENOrdering Facility: [facility] Address: [address] [place] [address] Performed By: #### 5 7021-8 ####[facility]IA [id number] [place] [address] IMMATURE GRAN ABS <0.03 Normal <0.10 [facility] Comment on above: Order Comment: Speci men Type: BLOOD SPECIMENOrdering Facility: [facility] Address: [address] [place] [address] Performed By: #### 5 7021-8 ####[facility]IA [id number] [place] [address] Lymphocytes (Bld) [#/Vol] 0.72 10*3/uL Low 1.00-4.00 [facility] [place] Comment on above: Order Comment: Speci men Type: BLOOD SPECIMENOrdering Facility: [facility] Address: [address] [place] [address] Performed By: #### 5 7021-8 ####[facility] [id number] [place] [address] Lymphocytes/100 WBC (Bld) 10.6 % Normal [facility] [place] Comment on above: Order Comment: Speci men Type: BLOOD SPECIMENOrdering Facility: [facility] Address: [address] [place] [address] Performed By: #### 5 7021-8 ####[facility] [id number] [place] [address] MCH (RBC) [Entitic mass] 27.8 pg Normal 26.0-34.0 [facility] [place] Comment on above: Order Comment: Speci men Type: BLOOD SPECIMENOrdering Facility: [facility] Address: [address] [place] [address] Performed By: #### 5 7021-8 ####[facility]IA [id number] [place] [address] MCHC (RBC) [Mass/Vol] 32.2 g/dL Normal 30.5-36.0 [facility] Comment on above: Order Comment: Speci men Type: BLOOD SPECIMENOrdering Facility: [facility] Address: [address] [place], [place] [address] Performed By: #### 5 7021-8 ####[facility]IA [id number] [place] [address] MCV (RBC) [Entitic vol] 86.3 fL Normal 80.0-100.[address] [facility] Comment on above: Order Comment: Speci men Type: BLOOD SPECIMENOrdering Facility: [facility] Address: [address] [place], [place] [address] Performed By: #### 5 7021-8 ####[facility] [id number] [place] [address] Monocytes (Bld) [#/Vol] 0.82 10*3/uL Normal <0.87 [facility] [place] Comment on above: Order Comment: Speci men Type: BLOOD SPECIMENOrdering Facility: [facility] Address: [address] [place] [address] Performed By: #### 5 7021-8 ####[facility] [id number] [place] [address] Monocytes/100 WBC (Bld) 12.1 % Normal [facility] Comment on above: Order Comment: Speci men Type: BLOOD SPECIMENOrdering Facility: [facility] Address: [address] [place] [address] Performed By: #### 5 7021-8 ####[facility] [id number] [place] [address] Neutrophils (Bld) [#/Vol] 4.95 10*3/uL Normal 1.45-7.50 [facility] [place] Comment on above: Order Comment: Speci men Type: BLOOD SPECIMENOrdering Facility: [facility] Address: [address] [place] [address] Performed By: #### 5 7021-8 ####[facility] [id number] [place] [address] Neutrophils/100 WBC (Bld) 73.1 % Normal [facility] [place] Comment on above: Order Comment: Speci men Type: BLOOD SPECIMENOrdering Facility: [facility] Address: [address] [place] [address] Performed By: #### 5 7021-8 ####[facility] [id number] [place] [address] Nucleated RBC (Bld) [#/Vol] 10*3/uL Normal <0.01 [facility] [place] Comment on above: Order Comment: Speci men Type: BLOOD SPECIMENOrdering Facility: [facility] Address: [address] [place], [place] [address] Performed By: #### 5 7021-8 ####[facility] [id number] [place] [address] Nucleated RBC/100 WBC (Bld) [Ratio] 0.0 /100 WBC Normal [facility] [place] Comment on above: Order Comment: Speci men Type: BLOOD SPECIMENOrdering Facility: [facility] Address: [address] [place] [address] Performed By: #### 5 7021-8 ####[facility] [id number] [place] [address] Platelet mean volume (Bld) [Entitic vol] 9.9 fL Normal 9.0-12.7 [facility] [place] Comment on above: Order Comment: Speci men Type: BLOOD SPECIMENOrdering Facility: [facility] Address: [address] [place], [place] [address] Performed By: #### 5 7021-8 ####[facility] [id number] [place] [address] Platelets (Bld) [#/Vol] 136 10*3/uL Low 150-400 [facility] [place] Comment on above: Order Comment: Speci men Type: BLOOD SPECIMENOrdering Facility: [facility] Address: [address] [place], [place] [address] Performed By: #### 5 7021-8 ####[facility] [id number] [place] [address] RBC (Bld) [#/Vol] 4.24 10*6/uL Normal 4.20-6.00 [facility] Comment on above: Order Comment: Speci men Type: BLOOD SPECIMENOrdering Facility: [facility] Address: [address] [place], [place] [address] Performed By: #### 5 7021-8 ####[facility] [id number] [place] [address] WBC (Bld) [#/Vol] 6.78 10*3/uL Normal 3.70-11.00 [facility] Comment on above: Order Comment: Speci men Type: BLOOD SPECIMENOrdering Facility: [facility] Address: [facility] [place] [address] Performed By: #### 5 7021-8 ####[facility] [id number] [place] [address] CNOVSPon 12-03-2021 CNOVSP Visit (SP) Office (HEMASA) GOPAL YATES JR ([id number]) 1965 M Date Time Provider Department 12/03/21 2:00 PM MONIK DOTSON During your visit today, we recorded the following information about you: Temperature Pulse Respiration Blood pressure 97.6 degrees 60/minute 16/minute 142/69 Weight Height 89.6 kg 1.93 m Monik Dotson APRN.CNP 12/03/2021 2:17 PM Signed NAME: Gopal Yates [facility] NO.: [id number] DATE OF SERVICE: December 03, 2021 Referring Provider: Dr. Douglas Juárez (Elements copied from Dr. Rojas note dated October 02, 2021, have been reviewed and updated where appropriate, and all reflect current assessment and medical decision making during today's encounter, December 03, 2021) Additional Clinicians involved in Gopal Cheungcody STEPHEN's care: DIAGNOSIS: Elevated Matt:Lambda light chains CKD induced anemia ASSESSMENT: 56 year old gentleman with longstanding and poorly controlled T2DM and HTN with renal failure. CKD induced anemia underwent lab workup for possible underlying primary marrow conditions that were negative. PLAN: 1. No Aranesp today. Hemoglobin 11.8. 2. Follow up in 2 weeks for labs and possible Aranesp. 3. Will obtain records from [facility] mainly interested in IV Iron dates. CURRENT TREATMENT: 12/04/2020 Aranesp 200 mcg initiated. - HPI: CASE HISTORY: Updated Visit, December 03, 2021: Gopal Nicolás STEPHEN returns today for follow-up. Aranesp 200 mcg initiated on 10/22/2021. To date, he has had 3 Aranesp injections. He still complains of feeling cold and tired. He denies any signs of bleeding. He states that he has completed 5 doses of IV iron at [facility]. Initial Visit, October 02, 2021: Gopal Yates [...] (HCC) 10/08 (more content not included)... Normal [facility] Comprehensive metabolic 2000 panelon 12-03-2021 Albumin [Mass/Vol] 3.5 g/dL Low 3.9-4.9 [facility] Comment on above: Order Comment: Speci men Type: BLOOD SPECIMENOrdering Facility: [facility] Address: [address] [place] [address] Performed By: #### 2 4323-8 ####[facility] LABCLIA [id number] [place] [address] ALP [Catalytic activity/Vol] 166 U/L High 38-113 [facility] Comment on above: Order Comment: Speci men Type: BLOOD SPECIMENOrdering Facility: [facility] Address: [address] [place] [address] Performed By: #### 2 4323-8 ####[facility] [id number] [place] [address] ALT [Catalytic activity/Vol] 13 U/L Normal 10-54 [facility] Comment on above: Order Comment: Speci men Type: BLOOD SPECIMENOrdering Facility: [facility] Address: [address] [place] [address] Performed By: #### 2 4323-8 ####[facility] [id number] [place] [address] Anion gap [Moles/Vol] 10 mmol/L Normal 9-18 [facility] Comment on above: Order Comment: Speci men Type: BLOOD SPECIMENOrdering Facility: [facility] Address: [address] [place] [address] Performed By: #### 2 4323-8 ####[facility] [id number] [place] [address] AST [Catalytic activity/Vol] 17 U/L Normal 14-40 [facility] Comment on above: Order Comment: Speci men Type: BLOOD SPECIMENOrdering Facility: [facility] Address: [address] [place] [address] Performed By: #### 2 4323-8 ####[facility]CL[facility] [id number] [place] [address] Bilirubin [Mass/Vol] 0.5 mg/dL Normal 0.2-1.3 [facility] Comment on above: Order Comment: Speci men Type: BLOOD SPECIMENOrdering Facility: [facility] Address: [address] [place] [address] Performed By: #### 2 4323-8 ####[facility]CL[facility] [id number] [place] [address] Calcium [Mass/Vol] 8.9 mg/dL Normal 8.5-10.2 [facility] Comment on above: Order Comment: Speci men Type: BLOOD SPECIMENOrdering Facility: [facility] Address: [address] [place] [address] Performed By: #### 2 4323-8 ####[facility]CL[facility] [id number] [place] [address] Chloride [Moles/Vol] 112 mmol/L High 97-105 [facility] Comment on above: Order Comment: Speci men Type: BLOOD SPECIMENOrdering Facility: [facility] Address: [address] [place] [address] Performed By: #### 2 4323-8 ####[facility]CL[facility] [id number] [place] [address] CO2 [Moles/Vol] 20 mmol/L Low 22-30 [facility] Comment on above: Order Comment: Speci men Type: BLOOD SPECIMENOrdering Facility: [facility] Address: [address] [place] [address] Performed By: #### 2 4323-8 ####[facility]CLIA [id number] [place] [address] Creatinine [Mass/Vol] 3.74 mg/dL High 0.73-1.22 [facility] Comment on above: Order Comment: Speci men Type: BLOOD SPECIMENOrdering Facility: [facility] Address: [address] [place] [address] Performed By: #### 2 4323-8 ####[facility]CL[facility] [id number] [place] [address] ESTIMATED GLOMERULAR FILTRATION RATE 18 mL/min/1.73m??? Low >=60 [facility] Comment on above: Order Comment: Speci men Type: BLOOD SPECIMENOrdering Facility: [facility] Address: [address] [place] [address] Result Comment: Trixie mated Glomerular Filtration Rate [...] actual GFR. Performed By: #### 2 4323-8 ####[facility]CLIA [id number] [place] [address] Glucose [Mass/Vol] 111 mg/dL High 74-99 [facility] Comment on above: Order Comment: Speci kecia Type: BLOOD SPECIMENOrdering Facility: [facility] Address: [address] [place] [address] Result Comment: The [place] Diabetes Association (ADA) provides guidance for cutoff [...] Standards of Medical Care in Diabetes 2016, [place] [employer]. Diabetes Care. 2016.39(Suppl 1). Performed By: #### 2 4323-8 ####[facility]CLIA [id number] [place] [address] Potassium [Moles/Vol] 4.1 mmol/L Normal 3.7-5.1 [facility] Comment on above: Order Comment: Speci men Type: BLOOD SPECIMENOrdering Facility: [facility] Address: [address] [place] [address] Performed By: #### 2 4323-8 ####[facility]CL[facility] [id number] [place] [address] Protein [Mass/Vol] 6.6 g/dL Normal 6.3-8.0 [facility] Comment on above: Order Comment: Speci men Type: BLOOD SPECIMENOrdering Facility: [facility] Address: [address] [place] [address] Performed By: #### 2 4323-8 ####[facility]CL[facility] [id number] [place] [address] Sodium [Moles/Vol] 142 mmol/L Normal 136-144 [facility] Comment on above: Order Comment: Speci men Type: BLOOD SPECIMENOrdering Facility: [facility] Address: [address] [place] [address] Performed By: #### 2 4323-8 ####[facility]CL[facility] [id number] [place] [address] Urea nitrogen [Mass/Vol] 52 mg/dL High 9-24 [facility] Comment on above: Order Comment: Speci men Type: BLOOD SPECIMENOrdering Facility: [facility] Address: [address] [place] [address] Performed By: #### 2 4323-8 ####[facility]CLIA [id number] [place] [address] CBC W Auto Differential pane l (Bld)on 11-19-2021 Basophils (Bld) [#/Vol] 10*3/uL [facility]0.11 [facility]: Order Comment: Speci men Type: BLOOD SPECIMEN [facility] Address: [address] [place] [address] Performed By: #### 5 7021-8 #### [facility] CLIA [id number] [address] [place] [address] Basophils/100 WBC (Bld) 0.4 % [facility] Comment on above: Order Comment: Speci men Type: BLOOD SPECIMEN [facility] Address: [address] [place] [address] Performed By: #### 5 7021-8 #### [facility] CLIA [id number] [address] [place] [address] Differential cell count method Nom (Bld) Auto Normal [facility] Comment on above: Order Comment: Speci men Type: BLOOD SPECIMEN [facility] Address: [address] [place] [address] Performed By: #### 5 7021-8 #### [facility] CLIA [id number] [address] [place] [address] Eosinophils (Bld) [#/Vol] 0.16 10*3/uL Normal <0.46 [facility] Comment on above: Order Comment: Speci men Type: BLOOD SPECIMEN [facility] Address: [address] [place] [address] Performed By: #### 5 7021-8 #### [facility] CLIA [id number] [address] [place] [address] Eosinophils/100 WBC (Bld) 2.8 % Normal [facility] Comment on above: Order Comment: Speci men Type: BLOOD SPECIMEN [facility] Address: [address] [place] [address] Performed By: #### 5 7021-8 #### [facility] CLIA [id number] [address] [place] [address] Erythrocyte distribution width (RBC) [Ratio] 15.5 % High 11.5-15.0 [facility] Comment on above: Order Comment: Speci men Type: BLOOD SPECIMEN [facility] Address: [address] [place] [address] Performed By: #### 5 7021-8 #### [facility] CLIA [id number] [address] [place] [address] Hematocrit (Bld) [Volume fraction] 31.7 % Low 39.0-51.0 [facility] Comment on above: Order Comment: Speci men Type: BLOOD SPECIMEN [facility] Address: [address] [place] [address] Performed By: #### 5 7021-8 #### [facility] CLIA [id number] [address] [place] [address] Hemoglobin (Bld) [Mass/Vol] 10.2 g/dL Low 13.0-17.0 [facility] Comment on above: Order Comment: Speci men Type: BLOOD SPECIMEN [facility] Address: [address] [place] [address] Performed By: #### 5 7021-8 #### [facility] CLIA [id number] [address] [place] [address] IMMATURE GRAN % 0.4 % Normal [facility] Comment on above: Order Comment: Speci men Type: BLOOD SPECIMEN [facility] Address: [address] [place] [address] Performed By: #### 5 7021-8 #### [facility] CLIA [id number] [address] [place] [address] IMMATURE GRAN ABS <0.03 Normal <0.10 [facility] Comment on above: Order Comment: Speci men Type: BLOOD SPECIMEN [facility] Address: [address] [place] [address] Performed By: #### 5 7021-8 #### [facility] CLIA [id number] [address] [place] [address] Lymphocytes (Bld) [#/Vol] 0.66 10*3/uL Low 1.00-4.00 [facility] Comment on above: Order Comment: Speci men Type: BLOOD SPECIMEN [facility] Address: [address] [place] [address] Performed By: #### 5 7021-8 #### [facility] CLIA [id number] [address] [place] [address] Lymphocytes/100 WBC (Bld) 11.6 % Normal [facility] Comment on above: Order Comment: Speci men Type: BLOOD SPECIMEN [facility] Address: [address] [place], [place] [address] Performed By: #### 5 7021-8 #### [facility] CLIA [id number] [address] [place] [address] MCH (RBC) [Entitic mass] 27.6 pg Normal 26.0-34.0 [facility] Comment on above: Order Comment: Speci men Type: BLOOD SPECIMEN [facility] Address: [address] [place], [place] [address] Performed By: #### 5 7021-8 #### [facility] CLIA [id number] [address] [place] [address] MCHC (RBC) [Mass/Vol] 32.2 g/dL Normal 30.5-36.0 [facility] Comment on above: Order Comment: Speci men Type: BLOOD SPECIMEN [facility] Address: [address] [place], [place] [address] Performed By: #### 5 7021-8 #### [facility] CLIA [id number] [address] [place] [address] MCV (RBC) [Entitic vol] 85.7 fL Normal 80.0-100.[address] [facility] Comment on above: Order Comment: Speci men Type: BLOOD SPECIMEN [facility] Address: [address] [place], [place] [address] Performed By: #### 5 7021-8 #### [facility] CLIA [id number] [address] [place] [address] Monocytes (Bld) [#/Vol] 0.70 10*3/uL Normal <0.87 [facility] Comment on above: Order Comment: Speci men Type: BLOOD SPECIMEN [facility] Address: [address] [place], [place] [address] Performed By: #### 5 7021-8 #### [facility] CLIA [id number] [address] [place] [address] Monocytes/100 WBC (Bld) 12.3 % Normal [facility] Comment on above: Order Comment: Speci men Type: BLOOD SPECIMEN [facility] Address: [address] [place] [address] Performed By: #### 5 7021-8 #### [facility] CLIA [id number] [address] [place] [address] Neutrophils (Bld) [#/Vol] 4.12 10*3/uL Normal 1.45-7.50 [facility] Comment on above: Order Comment: Speci men Type: BLOOD SPECIMEN [facility] Address: [address] [place] [address] Performed By: #### 5 7021-8 #### [facility] CLIA [id number] [address] [place] [address] Neutrophils/100 WBC (Bld) 72.5 % Normal [facility] Comment on above: Order Comment: Speci men Type: BLOOD SPECIMEN [facility] Address: [address] [place] [address] Performed By: #### 5 7021-8 #### [facility] CLIA [id number] [address] [place] [address] Nucleated RBC (Bld) [#/Vol] 10*3/uL Normal <0.01 [facility] Comment on above: Order Comment: Speci men Type: BLOOD SPECIMEN [facility] Address: [address] [place] [address] Performed By: #### 5 7021-8 #### [facility] CLIA [id number] [address] [place] [address] Nucleated RBC/100 WBC (Bld) [Ratio] 0.0 /100 WBC Normal [facility] Comment on above: Order Comment: Speci men Type: BLOOD SPECIMEN [facility] Address: [address] [place], [place] [address] Performed By: #### 5 7021-8 #### [facility] CLIA [id number] [address] [place] [address] Platelet mean volume (Bld) [Entitic vol] 10.0 fL Normal 9.0-12.7 [facility] Comment on above: Order Comment: Speci men Type: BLOOD SPECIMEN [facility] Address: [address] [place] [address] Performed By: #### 5 7021-8 #### [facility] CLIA [id number] [address] [place] [address] Platelets (Bld) [#/Vol] 146 10*3/uL Low 150-400 [facility] Comment on above: Order Comment: Speci men Type: BLOOD SPECIMEN [facility] Address: [address] [place] [address] Performed By: #### 5 7021-8 #### [facility] CLIA [id number] [address] [place] [address] RBC (Bld) [#/Vol] 3.70 10*6/uL Low 4.20-6.00 [facility] Comment on above: Order Comment: Speci men Type: BLOOD SPECIMEN [facility] Address: [address] [place] [address] Performed By: #### 5 7021-8 #### [facility] CLIA [id number] [address] [place] [address]79 WBC (Bld) [#/Vol] 5.68 10*3/uL Normal 3.70-11.00 [facility] Comment on above: Order Comment: Speci men Type: BLOOD SPECIMEN [facility] Address: [address] [place], [place] [address] Performed By: #### 5 7021-8 #### [facility] CLIA [id number] [address] [place] [address] Comprehensive metabolic 2000 panelon 11-19-2021 Albumin [Mass/Vol] 3.4 g/dL Low 3.9-4.9 [facility] Comment on above: Order Comment: Speci men Type: BLOOD SPECIMENOrdering Facility: [facility] Address: [address] [place] [address] Performed By: #### 2 4323-8 ####[facility] [id number] [place] [address] ALP [Catalytic activity/Vol] 187 U/L High 38-113 [facility] Comment on above: Order Comment: Speci men Type: BLOOD SPECIMENOrdering Facility: [facility] Address: [address] [place] [address] Performed By: #### 2 4323-8 ####[facility] [id number] [place] [address] ALT [Catalytic activity/Vol] 17 U/L Normal 10-54 [facility] Comment on above: Order Comment: Speci men Type: BLOOD SPECIMENOrdering Facility: [facility] Address: [address] [place] [address] Performed By: #### 2 4323-8 ####[facility] [id number] [place] [address] Anion gap [Moles/Vol] 9 mmol/L Normal 9-18 [facility] Comment on above: Order Comment: Speci men Type: BLOOD SPECIMENOrdering Facility: [facility] Address: [address] [place] [address] Performed By: #### 2 4323-8 ####[facility] [id number] [place] [address] AST [Catalytic activity/Vol] 20 U/L Normal 14-40 [facility] Comment on above: Order Comment: Speci men Type: BLOOD SPECIMENOrdering Facility: [facility] Address: [address] [place], [place] [address] Performed By: #### 2 4323-8 ####[facility] [id number] [place] [address] Bilirubin [Mass/Vol] 0.5 mg/dL Normal 0.2-1.3 [facility] Comment on above: Order Comment: Speci men Type: BLOOD SPECIMENOrdering Facility: [facility] Address: [address] [place] [address] Performed By: #### 2 4323-8 ####[facility] [id number] [place] [address] Calcium [Mass/Vol] 8.5 mg/dL Normal 8.5-10.2 [facility] Comment on above: Order Comment: Speci men Type: BLOOD SPECIMENOrdering Facility: [facility] Address: [address] [place] [address] Performed By: #### 2 4323-8 ####[facility] [id number] [place] [address] Chloride [Moles/Vol] 110 mmol/L High 97-105 [facility] Comment on above: Order Comment: Speci men Type: BLOOD SPECIMENOrdering Facility: [facility] Address: [address] [place] [address] Performed By: #### 2 4323-8 ####[facility] [id number] [place] [address] CO2 [Moles/Vol] 20 mmol/L Low 22-30 [facility] Comment on above: Order Comment: Speci men Type: BLOOD SPECIMENOrdering Facility: [facility] Address: [address] [place] [address] Performed By: #### 2 4323-8 ####[facility] [id number] [place] [address] Creatinine [Mass/Vol] 3.60 mg/dL High 0.73-1.22 [facility] Comment on above: Order Comment: Fabi mcdonnell Type: BLOOD SPECIMENOrdering Facility: [facility] Address: [address] [address] Performed By: #### 2 4323-8 ####[facility] [id number] [place] [address] ESTIMATED GLOMERULAR FILTRATION RATE 19 mL/min/1.73m??? Low >=60 [facility] Comment on above: Order Comment: Specmesfin mcdonnell Type: BLOOD SPECIMENOrdering Facility: [facility] Address: [address] [place], [place] [address] Result Comment: Trixie mated Glomerular Filtration Rate [...] actual GFR. Performed By: #### 2 4323-8 ####[facility] [id number] [place] [address] Glucose [Mass/Vol] 98 mg/dL Normal 74-99 [facility] Comment on above: Order Comment: Fabi mcdonnell Type: BLOOD SPECIMENOrdering Facility: [facility] Address: [address] [place] [address] Result Comment: The [place] [employer] (ADA) provides guidance for cutoff [...] Standards of Medical Care in Diabetes 2016, [place] [employer]. Diabetes Care. 2016.39(Suppl 1). Performed By: #### 2 4323-8 ####[facility] [id number] [place] [address] Potassium [Moles/Vol] 4.2 mmol/L Normal 3.7-5.1 [facility] Comment on above: Order Comment: Speci men Type: BLOOD SPECIMENOrdering Facility: [facility] Address: [address] [place] [address] Performed By: #### 2 4323-8 ####[facility] [id number] [place] [address] Protein [Mass/Vol] 6.7 g/dL Normal 6.3-8.0 [facility] Comment on above: Order Comment: Speci men Type: BLOOD SPECIMENOrdering Facility: [facility] Address: [address] [place] [address] Performed By: #### 2 4323-8 ####[facility] [id number] [place] [address] Sodium [Moles/Vol] 139 mmol/L Normal 136-144 [facility] Comment on above: Order Comment: Speci men Type: BLOOD SPECIMENOrdering Facility: [facility] Address: [address] [place] [address] Performed By: #### 2 4323-8 ####[facility] [id number] [place] [address] Urea nitrogen [Mass/Vol] 49 mg/dL High 9-24 [facility] Comment on above: Order Comment: Speci men Type: BLOOD SPECIMENOrdering Facility: [facility] Address: [address] [place] [address] Performed By: #### 2 4323-8 ####[facility] [id number] [place] [address] CBC W Auto Differential pane l (Bld)on 11-05-2021 Basophils (Bld) [#/Vol] 0.03 10*3/uL Normal <0.11 [facility] Comment on above: Order Comment: Speci men Type: BLOOD SPECIMENOrdering Facility: [facility] Address: [address] [place] [address] Performed By: #### 5 7021-8 ####[facility] [id number] [place] [address] Basophils/100 WBC (Bld) 0.5 % Normal [facility] Comment on above: Order Comment: Speci men Type: BLOOD SPECIMENOrdering Facility: [facility] Address: [address] [place] [address] Performed By: #### 5 7021-8 ####[facility] [id number] [place] [address] Differential cell count method Nom (Bld) Auto Normal [facility] Comment on above: Order Comment: Speci men Type: BLOOD SPECIMENOrdering Facility: [facility] Address: [address] [place] [address] Performed By: #### 5 7021-8 ####[facility] [id number] [place] [address] Eosinophils (Bld) [#/Vol] 0.22 10*3/uL Normal <0.46 [facility] Comment on above: Order Comment: Speci men Type: BLOOD SPECIMENOrdering Facility: [facility] Address: [address] [place] [address] Performed By: #### 5 7021-8 ####[facility] [id number] [place] [address] Eosinophils/100 WBC (Bld) 3.7 % Normal [facility] Comment on above: Order Comment: Speci men Type: BLOOD SPECIMENOrdering Facility: [facility] Address: [address] [place] [address] Performed By: #### 5 7021-8 ####[facility] [id number] [place] [address] Erythrocyte distribution width (RBC) [Ratio] 16.0 % High 11.5-15.0 [facility] Comment on above: Order Comment: Speci men Type: BLOOD SPECIMENOrdering Facility: [facility] Address: [address] [place] [address] Performed By: #### 5 7021-8 ####[facility] [id number] [place] [address] Hematocrit (Bld) [Volume fraction] 29.0 % Low 39.0-51.0 [facility] [place] Comment on above: Order Comment: Speci men Type: BLOOD SPECIMENOrdering Facility: [facility] Address: [address] [place] [address] Performed By: #### 5 7021-8 ####[facility] LABIA [id number] [place] [address] Hemoglobin (Bld) [Mass/Vol] 9.5 g/dL Low 13.0-17.0 [facility] [place] Comment on above: Order Comment: Speci men Type: BLOOD SPECIMENOrdering Facility: [facility] Address: [address] [place] [address] Performed By: #### 5 7021-8 ####[facility] LABIA [id number] [place] [address] IMMATURE GRAN % 0.3 % Normal [facility] [place] Comment on above: Order Comment: Speci men Type: BLOOD SPECIMENOrdering Facility: [facility] Address: [address] [place] [address] Performed By: #### 5 7021-8 ####[facility] LABCLIA [id number] [place] [address] IMMATURE GRAN ABS <0.03 Normal <0.10 [facility] Comment on above: Order Comment: Speci men Type: BLOOD SPECIMENOrdering Facility: [facility] Address: [address] [place] [address] Performed By: #### 5 7021-8 ####[facility] LABCLIA [id number] [place] [address] Lymphocytes (Bld) [#/Vol] 0.81 10*3/uL Low 1.00-4.00 [facility] [place] Comment on above: Order Comment: Speci men Type: BLOOD SPECIMENOrdering Facility: [facility] Address: [address] [place] [address] Performed By: #### 5 7021-8 ####[facility] LABCLIA [id number] [place] [address] Lymphocytes/100 WBC (Bld) 13.7 % Normal [facility] [place] Comment on above: Order Comment: Speci men Type: BLOOD SPECIMENOrdering Facility: [facility] Address: [address] [place] [address] Performed By: #### 5 7021-8 ####[facility] LABCLIA [id number] [place] [address] MCH (RBC) [Entitic mass] 27.8 pg Normal 26.0-34.0 [facility] Comment on above: Order Comment: Speci men Type: BLOOD SPECIMENOrdering Facility: [facility] Address: [address] [place] [address] Performed By: #### 5 7021-8 ####[facility] LABCLIA [id number] [place] [address] MCHC (RBC) [Mass/Vol] 32.8 g/dL Normal 30.5-36.0 [facility] Comment on above: Order Comment: Speci men Type: BLOOD SPECIMENOrdering Facility: [facility] Address: [address] [place] [address] Performed By: #### 5 7021-8 ####[facility] LABCLIA [id number] [place] [address] MCV (RBC) [Entitic vol] 84.8 fL Normal 80.0-100.[address] [facility] Comment on above: Order Comment: Speci men Type: BLOOD SPECIMENOrdering Facility: [facility] Address: [address] [place] [address] Performed By: #### 5 7021-8 ####[facility] LABCLIA [id number] [place] [address] Monocytes (Bld) [#/Vol] 0.85 10*3/uL Normal <0.87 [facility] Comment on above: Order Comment: Speci men Type: BLOOD SPECIMENOrdering Facility: [facility] Address: [address] [place] [address] Performed By: #### 5 7021-8 ####[facility] LABCLIA [id number] [place] [address] Monocytes/100 WBC (Bld) 14.4 % Normal [facility] Comment on above: Order Comment: Speci men Type: BLOOD SPECIMENOrdering Facility: [facility] Address: [address] [place] [address] Performed By: #### 5 7021-8 ####[facility] LABCLIA [id number] [place] [address] Neutrophils (Bld) [#/Vol] 3.97 10*3/uL Normal 1.45-7.50 [facility] [place] Comment on above: Order Comment: Speci men Type: BLOOD SPECIMENOrdering Facility: [facility] Address: [address] [place] [address] Performed By: #### 5 7021-8 ####[facility] LABCLIA [id number] [place] [address] Neutrophils/100 WBC (Bld) 67.4 % Normal [facility] Comment on above: Order Comment: Speci men Type: BLOOD SPECIMENOrdering Facility: [facility] Address: [address] [place] [address] Performed By: #### 5 7021-8 ####[facility] LABCLIA [id number] [place] [address] Nucleated RBC (Bld) [#/Vol] 10*3/uL Normal <0.01 [facility] Comment on above: Order Comment: Speci men Type: BLOOD SPECIMENOrdering Facility: [facility] Address: [address] [place] [address] Performed By: #### 5 7021-8 ####[facility] LABCLIA [id number] [place] [address] Nucleated RBC/100 WBC (Bld) [Ratio] 0.0 /100 WBC Normal [facility] Comment on above: Order Comment: Speci men Type: BLOOD SPECIMENOrdering Facility: [facility] Address: [address] [place] [address] Performed By: #### 5 7021-8 ####[facility] LABCLIA [id number] [place] [address] Platelet mean volume (Bld) [Entitic vol] 10.1 fL Normal 9.0-12.7 [facility] [place] Comment on above: Order Comment: Speci men Type: BLOOD SPECIMENOrdering Facility: [facility] Address: [address] [place], [place] [address] Performed By: #### 5 7021-8 ####[facility] LABCLIA [id number] [place] [address] Platelets (Bld) [#/Vol] 138 10*3/uL Low 150-400 [facility] Comment on above: Order Comment: Speci men Type: BLOOD SPECIMENOrdering Facility: [facility] Address: [address] [place] [address] Performed By: #### 5 7021-8 ####[facility] LABCLIA [id number] [place] [address] RBC (Bld) [#/Vol] 3.42 10*6/uL Low 4.20-6.00 [facility] Comment on above: Order Comment: Speci men Type: BLOOD SPECIMENOrdering Facility: [facility] Address: [address] [place] [address] Performed By: #### 5 7021-8 ####[facility] LABCLIA [id number] [place] [address] WBC (Bld) [#/Vol] 5.90 10*3/uL Normal 3.70-11.00 [facility] Comment on above: Order Comment: Speci men Type: BLOOD SPECIMENOrdering Facility: [facility] Address: [address] [place] [address] Performed By: #### 5 7021-8 ####[facility] LABCLIA [id number] [place] [address] Comprehensive metabolic 2000 panelon 11-05-2021 Albumin [Mass/Vol] 3.3 g/dL Low 3.9-4.9 [facility] Comment on above: Order Comment: Speci men Type: BLOOD SPECIMENOrdering Facility: [facility] Address: [address] [place] [address] Performed By: #### 2 4323-8 ####[facility] LABCLIA [id number] [place] [id number] ALP [Catalytic activity/Vol] 196 U/L High 38-113 [facility] Comment on above: Order Comment: Speci men Type: BLOOD SPECIMENOrdering Facility: [facility] Address: [address] [place] [address] Performed By: #### 2 4323-8 ####[facility] LABCLIA [id number] [place] [address] ALT [Catalytic activity/Vol] 19 U/L Normal 10-54 [facility] Comment on above: Order Comment: Speci men Type: BLOOD SPECIMENOrdering Facility: [facility] Address: [address] [place] [address] Performed By: #### 2 4323-8 ####[facility] LABCLIA [id number] [place] [address] Anion gap [Moles/Vol] 9 mmol/L Normal 9-18 [facility] Comment on above: Order Comment: Speci men Type: BLOOD SPECIMENOrdering Facility: [facility] Address: [address] [place] [address] Performed By: #### 2 4323-8 ####[facility] LABCLIA [id number] [place] [address] AST [Catalytic activity/Vol] 24 U/L Normal 14-40 [facility] Comment on above: Order Comment: Speci men Type: BLOOD SPECIMENOrdering Facility: [facility] Address: [address] [place] [address] Performed By: #### 2 4323-8 ####[facility] LABCLIA [id number] [place] [address] Bilirubin [Mass/Vol] 0.5 mg/dL Normal 0.2-1.3 [facility] Comment on above: Order Comment: Speci men Type: BLOOD SPECIMENOrdering Facility: [facility] Address: [address] [place] [address] Performed By: #### 2 4323-8 ####[facility] LABCLIA [id number] [place] [address] Calcium [Mass/Vol] 8.7 mg/dL Normal 8.5-10.2 [facility] Comment on above: Order Comment: Speci men Type: BLOOD SPECIMENOrdering Facility: [facility] Address: [address] [place] [address] Performed By: #### 2 4323-8 ####[facility] LABCLIA [id number] [place] [address] Chloride [Moles/Vol] 111 mmol/L High 97-105 [facility] Comment on above: Order Comment: Speci men Type: BLOOD SPECIMENOrdering Facility: [facility] Address: [address] [place] [address] Performed By: #### 2 4323-8 ####[facility] LABCLIA [id number] [place] [address] CO2 [Moles/Vol] 19 mmol/L Low 22-30 [facility] Comment on above: Order Comment: Speci men Type: BLOOD SPECIMENOrdering Facility: [facility] Address: [address] [place] [address] Performed By: #### 2 4323-8 ####[facility] LABCL[facility] [id number] [place] [address] Creatinine [Mass/Vol] 3.53 mg/dL High 0.73-1.22 [facility] Comment on above: Order Comment: Speci men Type: BLOOD SPECIMENOrdering Facility: [facility] Address: [address] [place] [address] Performed By: #### 2 4323-8 ####[facility] LABCLIA [id number] [place] [address] ESTIMATED GLOMERULAR FILTRATION RATE 19 mL/min/1.73m??? Low >=60 [facility] Comment on above: Order Comment: Speci men Type: BLOOD SPECIMENOrdering Facility: [facility] Address: [address] [place] [address] Result Comment: Trixie mated Glomerular Filtration Rate [...] actual GFR. Performed By: #### 2 4323-8 ####[facility] LABCLIA [id number] [place] [address] Glucose [Mass/Vol] 126 mg/dL High 74-99 [facility] Comment on above: Order Comment: Speci men Type: BLOOD SPECIMENOrdering Facility: [facility] Address: [address] [place] [address] Result Comment: The [place] [employer] (ADA) provides guidance for cutoff [...] Standards of Medical Care in Diabetes 2016, [place] [employer]. Diabetes Care. 2016.39(Suppl 1). Performed By: #### 2 4323-8 ####[facility] LABCLIA [id number] [place] [address] Potassium [Moles/Vol] 4.2 mmol/L Normal 3.7-5.1 [facility] Comment on above: Order Comment: Speci men Type: BLOOD SPECIMENOrdering Facility: [facility] Address: [address] [place], [place] [id number] Performed By: #### 2 4323-8 ####[facility] LABCLIA [id number] [place] [address] Protein [Mass/Vol] 6.7 g/dL Normal 6.3-8.0 [facility] Comment on above: Order Comment: Speci men Type: BLOOD SPECIMENOrdering Facility: [facility] Address: [address] [place], [place] [phone] Performed By: #### 2 4323-8 ####[facility] LABCLIA [id number] [place] [address] Sodium [Moles/Vol] 139 mmol/L Normal 136-144 [facility] Comment on above: Order Comment: Speci men Type: BLOOD SPECIMENOrdering Facility: [facility] Address: [address] [place] [address] Performed By: #### 2 4323-8 ####[facility] LABCLIA [id number] [place] [address] Urea nitrogen [Mass/Vol] 47 mg/dL High 9-24 [facility] Comment on above: Order Comment: Speci men Type: BLOOD SPECIMENOrdering Facility: [facility] Address: [address] [place] [address] Performed By: #### 2 4323-8 ####[facility] LABCLIA [id number] [place] [address] CBC W Auto Differential pane l (Bld)on 10-22-2021 Basophils (Bld) [#/Vol] 0.04 10*3/uL Normal <0.11 [facility] Comment on above: Order Comment: Speci men Type: BLOOD SPECIMENOrdering Facility: [facility] Address: [address] [place] [address] Performed By: #### 5 7021-8 ####[facility] LABCLIA [id number] [place] [address] Basophils/100 WBC (Bld) 0.7 % Normal [facility] Comment on above: Order Comment: Speci men Type: BLOOD SPECIMENOrdering Facility: [facility] Address: [address] [place] [address] Performed By: #### 5 7021-8 ####[facility] LABCLIA [id number] [place] [address] Differential cell count method Nom (Bld) Auto Normal [facility] Comment on above: Order Comment: Speci men Type: BLOOD SPECIMENOrdering Facility: [facility] Address: [address] [place] [address] Performed By: #### 5 7021-8 ####[facility] LABCLIA [id number] [place] [address] Eosinophils (Bld) [#/Vol] 0.23 10*3/uL Normal <0.46 [facility] Comment on above: Order Comment: Speci men Type: BLOOD SPECIMENOrdering Facility: [facility] Address: [address] [place] [address] Performed By: #### 5 7021-8 ####[facility] LABCLIA [id number] [place] [address] Eosinophils/100 WBC (Bld) 4.1 % Normal [facility] Comment on above: Order Comment: Speci men Type: BLOOD SPECIMENOrdering Facility: [facility] Address: [address] [place] [address] Performed By: #### 5 7021-8 ####[facility] LABCLIA [id number] [place] [address] Erythrocyte distribution width (RBC) [Ratio] 14.4 % Normal 11.5-15.0 [facility] Comment on above: Order Comment: Speci men Type: BLOOD SPECIMENOrdering Facility: [facility] Address: [address] [place] [address] Performed By: #### 5 7021-8 ####[facility] LABCLIA [id number] [place] [address] Hematocrit (Bld) [Volume fraction] 25.6 % Low 39.0-51.0 [facility] Comment on above: Order Comment: Speci men Type: BLOOD SPECIMENOrdering Facility: [facility] Address: [address] [place] [address] Performed By: #### 5 7021-8 ####[facility] LABCLIA [id number] [place] [address] Hemoglobin (Bld) [Mass/Vol] 8.4 g/dL Low 13.0-17.0 [facility] Comment on above: Order Comment: Speci men Type: BLOOD SPECIMENOrdering Facility: [facility] Address: [address] [place] [address] Performed By: #### 5 7021-8 ####[facility] LABCLIA [id number] [place] [address] IMMATURE GRAN % 0.2 % Normal [facility] Comment on above: Order Comment: Speci men Type: BLOOD SPECIMENOrdering Facility: [facility] Address: [address] [place] [address] Performed By: #### 5 7021-8 ####[facility] LABCLIA [id number] [place] [address] IMMATURE GRAN ABS <0.03 Normal <0.10 [facility] Comment on above: Order Comment: Speci men Type: BLOOD SPECIMENOrdering Facility: [facility] Address: [address] [place] [address] Performed By: #### 5 7021-8 ####[facility] LABCLIA [id number] [place] [address] Lymphocytes (Bld) [#/Vol] 0.69 10*3/uL Low 1.00-4.00 [facility] Comment on above: Order Comment: Speci men Type: BLOOD SPECIMENOrdering Facility: [facility] Address: [address] [place] [address] Performed By: #### 5 7021-8 ####[facility] LABCLIA [id number] [place] [address] Lymphocytes/100 WBC (Bld) 12.3 % Normal [facility] Comment on above: Order Comment: Speci men Type: BLOOD SPECIMENOrdering Facility: [facility] Address: [address] [place] [address] Performed By: #### 5 7021-8 ####[facility] LABCLIA [id number] [place] [address] MCH (RBC) [Entitic mass] 27.5 pg Normal 26.0-34.0 [facility] Comment on above: Order Comment: Speci men Type: BLOOD SPECIMENOrdering Facility: [facility] Address: [address] [place] [address] Performed By: #### 5 7021-8 ####[facility] LABCLIA [id number] [place] [address] MCHC (RBC) [Mass/Vol] 32.8 g/dL Normal 30.5-36.0 [facility] Comment on above: Order Comment: Speci men Type: BLOOD SPECIMENOrdering Facility: [facility] Address: [address] [place] [address] Performed By: #### 5 7021-8 ####[facility] LABCLIA [id number] [place] [address] MCV (RBC) [Entitic vol] 83.7 fL Normal 80.0-100.[address] [facility] Comment on above: Order Comment: Speci men Type: BLOOD SPECIMENOrdering Facility: [facility] Address: [address] [place] [address] Performed By: #### 5 7021-8 ####[facility] LABCLIA [id number] [place] [address] Monocytes (Bld) [#/Vol] 0.71 10*3/uL Normal <0.87 [facility] Comment on above: Order Comment: Speci men Type: BLOOD SPECIMENOrdering Facility: [facility] Address: [address] [place] [address] Performed By: #### 5 7021-8 ####[facility] LABCLIA [id number] [place] [address] Monocytes/100 WBC (Bld) 12.7 % Normal [facility] Comment on above: Order Comment: Speci men Type: BLOOD SPECIMENOrdering Facility: [facility] Address: [address] [place], [place] [address] Performed By: #### 5 7021-8 ####[facility] LABCLIA [id number] [place] [address] Neutrophils (Bld) [#/Vol] 3.92 10*3/uL Normal 1.45-7.50 [facility] Comment on above: Order Comment: Speci men Type: BLOOD SPECIMENOrdering Facility: [facility] Address: [address] [place] [address] Performed By: #### 5 7021-8 ####[facility] LABCLIA [id number] [place] [address] Neutrophils/100 WBC (Bld) 70.0 % Normal [facility] Comment on above: Order Comment: Speci men Type: BLOOD SPECIMENOrdering Facility: [facility] Address: [address] [place], [place] [address] Performed By: #### 5 7021-8 ####[facility] LABIA [id number] [place] [address] Nucleated RBC (Bld) [#/Vol] 10*3/uL Normal <0.01 [facility] Comment on above: Order Comment: Speci men Type: BLOOD SPECIMENOrdering Facility: [facility] Address: [address] [place], [place] [address] Performed By: #### 5 7021-8 ####[facility] LABCLIA [id number] [place] [address] Nucleated RBC/100 WBC (Bld) [Ratio] 0.0 /100 WBC Normal [facility] Comment on above: Order Comment: Speci men Type: BLOOD SPECIMENOrdering Facility: [facility] Address: [address] [place], [place] [address] Performed By: #### 5 7021-8 ####[facility] LABCLIA [id number] [place] [address] Platelet mean volume (Bld) [Entitic vol] 10.2 fL Normal 9.0-12.7 [facility] Comment on above: Order Comment: Speci men Type: BLOOD SPECIMENOrdering Facility: [facility] Address: [address] [place] [address] Performed By: #### 5 7021-8 ####[facility] LABCLIA [id number] [place] [address] Platelets (Bld) [#/Vol] 160 10*3/uL Normal 150-400 [facility] Comment on above: Order Comment: Speci men Type: BLOOD SPECIMENOrdering Facility: [facility] Address: [address] [place] [address] Performed By: #### 5 7021-8 ####[facility] LABIA [id number] [place] [address] RBC (Bld) [#/Vol] 3.06 10*6/uL Low 4.20-6.00 [facility] Comment on above: Order Comment: Speci men Type: BLOOD SPECIMENOrdering Facility: [facility] Address: [address] [place] [address] Performed By: #### 5 7021-8 ####[facility] LABIA [id number] [place] [address] WBC (Bld) [#/Vol] 5.60 10*3/uL Normal 3.70-11.00 [facility] Comment on above: Order Comment: Speci men Type: BLOOD SPECIMENOrdering Facility: [facility] Address: [address] [place] [address] Performed By: #### 5 7021-8 ####[facility] LABCLIA [id number] [place] [address] Comprehensive metabolic 2000 panelon 08-03-2022 Albumin [Mass/Vol] 3.4 g/dL Low 3.9-4.9 [facility] Comment on above: Order Comment: Speci men Type: BLOOD SPECIMENOrdering Facility: [facility] Address: [address] [place] [address] Performed By: #### 2 4323-8 ####[facility] LABCLIA [id number] [place] [address] ALP [Catalytic activity/Vol] 197 U/L High 38-113 [facility] Comment on above: Order Comment: Speci men Type: BLOOD SPECIMENOrdering Facility: [facility] Address: [address] [place] [address] Performed By: #### 2 4323-8 ####[facility] LABCLIA [id number] [place] [address] ALT [Catalytic activity/Vol] 19 U/L Normal 10-54 [facility] Comment on above: Order Comment: Speci men Type: BLOOD SPECIMENOrdering Facility: [facility] Address: [address] [place] [address] Performed By: #### 2 4323-8 ####[facility] LABCLIA [id number] [place] [address] Anion gap [Moles/Vol] 9 mmol/L Normal 9-18 [facility] Comment on above: Order Comment: Speci men Type: BLOOD SPECIMENOrdering Facility: [facility] Address: [address] [place] [address] Performed By: #### 2 4323-8 ####[facility] LABCLIA [id number] [place] [address] AST [Catalytic activity/Vol] 21 U/L Normal 14-40 [facility] Comment on above: Order Comment: Speci men Type: BLOOD SPECIMENOrdering Facility: [facility] Address: [address] [place] [address] Performed By: #### 2 4323-8 ####[facility] LABCLIA [id number] [place] [address] Bilirubin [Mass/Vol] 0.3 mg/dL Normal 0.2-1.3 [facility] Comment on above: Order Comment: Speci men Type: BLOOD SPECIMENOrdering Facility: [facility] Address: [address] [place] [address] Performed By: #### 2 4323-8 ####[facility] LABCLIA [id number] [place] [address] Calcium [Mass/Vol] 8.7 mg/dL Normal 8.5-10.2 [facility] Comment on above: Order Comment: Speci men Type: BLOOD SPECIMENOrdering Facility: [facility] Address: [address] [place] [address] Performed By: #### 2 4323-8 ####[facility] LABCLIA [id number] [place] [address] Chloride [Moles/Vol] 110 mmol/L High 97-105 [facility] Comment on above: Order Comment: Speci men Type: BLOOD SPECIMENOrdering Facility: [facility] Address: [address] [place] [address] Performed By: #### 2 4323-8 ####[facility] LABCLIA [id number] [place] [address] CO2 [Moles/Vol] 21 mmol/L Low 22-30 [facility] [place] Comment on above: Order Comment: Speci men Type: BLOOD SPECIMENOrdering Facility: [facility] Address: [address] [place] [address] Performed By: #### 2 4323-8 ####[facility]CL[facility] [id number] [place] [address] Creatinine [Mass/Vol] 4.04 mg/dL High 0.73-1.22 [facility] Comment on above: Order Comment: Speci men Type: BLOOD SPECIMENOrdering Facility: [facility] Address: [address] [place] [address] Performed By: #### 2 4323-8 ####[facility] [id number] [place] [address] ESTIMATED GLOMERULAR FILTRATION RATE 16 mL/min/1.73m??? Low >=60 [facility] [place] Comment on above: Order Comment: Fabi mcdonnell Type: BLOOD SPECIMENOrdering Facility: [facility] Address: [address] [place] [address] Result Comment: Trixie mated Glomerular Filtration Rate [...] actual GFR. Performed By: #### 2 4323-8 ####[facility] [id number] [place] [address] Glucose [Mass/Vol] 104 mg/dL High 74-99 [facility] Comment on above: Order Comment: Fabi kecia Type: BLOOD SPECIMENOrdering Facility: [facility] Address: [address] [place] [address] Result Comment: The [place] Diabetes Association (ADA) provides guidance for cutoff [...] Standards of Medical Care in Diabetes 2016, [place] [employer]. Diabetes Care. 2016.39(Suppl 1). Performed By: #### 2 4323-8 ####[facility] [id number] [place] [address] Potassium [Moles/Vol] 4.5 mmol/L Normal 3.7-5.1 [facility] Comment on above: Order Comment: Speci men Type: BLOOD SPECIMENOrdering Facility: [facility] Address: [address] [place] [address] Performed By: #### 2 4323-8 ####[facility] [id number] [place] [address] Protein [Mass/Vol] 6.8 g/dL Normal 6.3-8.0 [facility] Comment on above: Order Comment: Speci men Type: BLOOD SPECIMENOrdering Facility: [facility] Address: [address] [place] [address] Performed By: #### 2 4323-8 ####[facility] [id number] [place] [address] Sodium [Moles/Vol] 140 mmol/L Normal 136-144 [facility] Comment on above: Order Comment: Speci men Type: BLOOD SPECIMENOrdering Facility: [facility] Address: [address] [place] [address] Performed By: #### 2 4323-8 ####[facility] [id number] [place] [address] Urea nitrogen [Mass/Vol] 58 mg/dL High 9-24 [facility] Comment on above: Order Comment: Speci men Type: BLOOD SPECIMENOrdering Facility: [facility] Address: [address] [place] [address] Performed By: #### 2 4323-8 ####[facility] [id number] [place] [address] B2 MICROGLOBULIN Bon 07-15-2 022 Nxzr-8-Fppskrvcdcayk [Mass/Vol] 16.8 ug/mL High 0.8 - 2.4 mg/L [facility] Calcium.ionized [Moles/Vol]o n 10-03-2021 Calcium.ionized (Bld) [Mass/Vol] 1.20 mmol/L 1.08 - 1.30 mmol/L [facility] Calcium.ionized adjusted to pH 7.4 (Bld) [Moles/Vol] 1.19 mmol/L 1.08 - 1.30 mmol/L [facility] ERYTHROPOIETIN/EPOon 022 Erythropoietin (EPO) Qn 8.2 mIU/mL 2.6 - 18.5 mIU/mL [facility] FERRITIN BLDon 10-03-2021 Ferritin [Mass/Vol] 355.0 ng/mL 30.3 - 5 65.7 ng/mL [facility] FOLATE SERUMon 10-03-2021 Folate [Mass/Vol] 10.6 ng/mL >4.7 ng/mL [facility] VITAMIN B12 BLOODon 10-04-19 Cobalamin (Vitamin B12) [Mass/Vol] 647 pg/mL 232-1,245 pg/mL [facility] B2 Microglob SerPl-mCncon Xjym-0-Zlrhdpsmvrrqx [Mass/Vol] 16.8 ug/mL High 0.8-2.4 [facility] Comment on above: Order Comment: Speci kecia Type: BLOOD SPECIMEN [facility] Address: [address] [place] [address] Performed By: #### 5 7021-8 #### [facility] CLIA [id number] [address] [place] [address] CBC W Auto Differential pane l (Bld)on 10-02-2021 Basophils (Bld) [#/Vol] 10*3/uL Normal <0.[address] [facility] Comment on above: Order Comment: Fabi mcdonnell Type: BLOOD SPECIMENOrdering Facility: [facility] Address: [address] [place] [address] Performed By: #### 5 7021-8 ####[facility] [id number] [place] [address] Basophils/100 WBC (Bld) 0.3 % Normal [facility] Comment on above: Order Comment: Speci men Type: BLOOD SPECIMENOrdering Facility: [facility] Address: [address] [place] [address] Performed By: #### 5 7021-8 ####[facility] [id number] [place] [address] Differential cell count method Nom (Bld) Auto Normal [facility] Comment on above: Order Comment: Speci men Type: BLOOD SPECIMENOrdering Facility: [facility] Address: [address] [place] [address] Performed By: #### 5 7021-8 ####[facility] [id number] [place] [address] Eosinophils (Bld) [#/Vol] 0.23 10*3/uL Normal <0.46 [facility] Comment on above: Order Comment: Speci men Type: BLOOD SPECIMENOrdering Facility: [facility] Address: [address] [place] [address] Performed By: #### 5 7021-8 ####[facility] [id number] [place] [address] Eosinophils/100 WBC (Bld) 3.7 % Normal [facility] Comment on above: Order Comment: Speci men Type: BLOOD SPECIMENOrdering Facility: [facility] Address: [address] [place] [address] Performed By: #### 5 7021-8 ####[facility] [id number] [place] [address] Erythrocyte distribution width (RBC) [Ratio] 14.7 % Normal 11.5-15.0 [facility] Comment on above: Order Comment: Speci men Type: BLOOD SPECIMENOrdering Facility: [facility] Address: [address] [place] [address] Performed By: #### 5 7021-8 ####[facility] [id number] [place] [address] Hematocrit (Bld) [Volume fraction] 27.1 % Low 39.0-51.0 [facility] Comment on above: Order Comment: Speci men Type: BLOOD SPECIMENOrdering Facility: [facility] Address: [address] [place] [address] Performed By: #### 5 7021-8 ####[facility] [id number] [place] [address] Hemoglobin (Bld) [Mass/Vol] 8.8 g/dL Low 13.0-17.0 [facility] Comment on above: Order Comment: Speci men Type: BLOOD SPECIMENOrdering Facility: [facility] Address: [address] [place] [address] Performed By: #### 5 7021-8 ####[facility]IA [id number] [place] [address] IMMATURE GRAN % 0.2 % Normal [facility] Comment on above: Order Comment: Speci men Type: BLOOD SPECIMENOrdering Facility: [facility] Address: [address] [place] [address] Performed By: #### 5 7021-8 ####[facility] [id number] [place] [address] IMMATURE GRAN ABS <0.03 Normal <0.10 [facility] Comment on above: Order Comment: Speci men Type: BLOOD SPECIMENOrdering Facility: [facility] Address: [address] [place] [address] Performed By: #### 5 7021-8 ####[facility]IA [id number] [place] [address] Lymphocytes (Bld) [#/Vol] 0.73 10*3/uL Low 1.00-4.00 [facility] Comment on above: Order Comment: Speci men Type: BLOOD SPECIMENOrdering Facility: [facility] Address: [address] [place] [address] Performed By: #### 5 7021-8 ####[facility] [id number] [place] [address] Lymphocytes/100 WBC (Bld) 11.8 % Normal [facility] Comment on above: Order Comment: Speci men Type: BLOOD SPECIMENOrdering Facility: [facility] Address: [address] [place] [address] Performed By: #### 5 7021-8 ####[facility] [id number] [place] [address] MCH (RBC) [Entitic mass] 27.2 pg Normal 26.0-34.0 [facility] Comment on above: Order Comment: Speci men Type: BLOOD SPECIMENOrdering Facility: [facility] Address: [address] [place] [address] Performed By: #### 5 7021-8 ####[facility] [id number] [place] [address] MCHC (RBC) [Mass/Vol] 32.5 g/dL Normal 30.5-36.0 [facility] Comment on above: Order Comment: Speci men Type: BLOOD SPECIMENOrdering Facility: [facility] Address: [address] [place] [address] Performed By: #### 5 7021-8 ####[facility]IA [id number] [place] [address] MCV (RBC) [Entitic vol] 83.6 fL Normal 80.0-100.0 [facility] Comment on above: Order Comment: Speci men Type: BLOOD SPECIMENOrdering Facility: [facility] Address: [address] [place] [address] Performed By: #### 5 7021-8 ####[facility] [id number] [place] [address] Monocytes (Bld) [#/Vol] 0.67 10*3/uL Normal <0.87 [facility] Comment on above: Order Comment: Speci men Type: BLOOD SPECIMENOrdering Facility: [facility] Address: [address] [place] [address] Performed By: #### 5 7021-8 ####[facility] [id number] [place] [address] Monocytes/100 WBC (Bld) 10.8 % Normal [facility] Comment on above: Order Comment: Speci men Type: BLOOD SPECIMENOrdering Facility: [facility] Address: [address] [place] [address] Performed By: #### 5 7021-8 ####[facility] [id number] [place] [address] Neutrophils (Bld) [#/Vol] 4.54 10*3/uL Normal 1.45-7.50 [facility] Comment on above: Order Comment: Speci men Type: BLOOD SPECIMENOrdering Facility: [facility] Address: [address] [place] [address] Performed By: #### 5 7021-8 ####[facility] [id number] [place] [address] Neutrophils/100 WBC (Bld) 73.2 % Normal [facility] Comment on above: Order Comment: Speci men Type: BLOOD SPECIMENOrdering Facility: [facility] Address: [address] [place], [place] [address] Performed By: #### 5 7021-8 ####[facility] LABIA [id number] [place] [address] Nucleated RBC (Bld) [#/Vol] 10*3/uL Normal <0.01 [facility] Comment on above: Order Comment: Speci men Type: BLOOD SPECIMENOrdering Facility: [facility] Address: [address] [place], [place] [address] Performed By: #### 5 7021-8 ####[facility] [id number] [place] [address] Nucleated RBC/100 WBC (Bld) [Ratio] 0.0 /100 WBC Normal [facility] Comment on above: Order Comment: Speci men Type: BLOOD SPECIMENOrdering Facility: [facility] Address: [address] [place] [address] Performed By: #### 5 7021-8 ####[facility] [id number] [place] [address] Platelet mean volume (Bld) [Entitic vol] 10.2 fL Normal 9.0-12.7 [facility] Comment on above: Order Comment: Speci men Type: BLOOD SPECIMENOrdering Facility: [facility] Address: [address] [place] [address] Performed By: #### 5 7021-8 ####[facility] [id number] [place] [address] Platelets (Bld) [#/Vol] 163 10*3/uL Normal 150-400 [facility] Comment on above: Order Comment: Speci men Type: BLOOD SPECIMENOrdering Facility: [facility] Address: [address] [place] [address] Performed By: #### 5 7021-8 ####[facility] [id number] [place] [address] RBC (Bld) [#/Vol] 3.24 10*6/uL Low 4.20-6.00 [facility] Comment on above: Order Comment: Speci men Type: BLOOD SPECIMENOrdering Facility: [facility] Address: [address] [place] [address] Performed By: #### 5 7021-8 ####[facility] [id number] [place] [address] WBC (Bld) [#/Vol] 6.20 10*3/uL Normal 3.70-11.00 [facility] Comment on above: Order Comment: Speci men Type: BLOOD SPECIMENOrdering Facility: [facility] Address: [address] [place] [address] Performed By: #### 5 7021-8 ####[facility] [id number] [place] [address] Abs Immature Gran <0.03 <0.10 k/uL [facility] Basophils (Bld) [#/Vol] 10*3/uL <0.11 k/uL [facility] Basophils/100 WBC (Bld) 0.3 % [facility] Differential cell count method Nom (Bld) Auto [facility] Eosinophils (Bld) [#/Vol] 0.23 10*3/uL <0.46 k/uL [facility] Eosinophils/100 WBC (Bld) 3.7 % [facility] Erythrocyte distribution width (RBC) [Ratio] 14.7 % 11.5 - 15.0 % [facility] Hematocrit (Bld) [Volume fraction] 27.1 % Low 39.0 - 51.0 % [facility] Hemoglobin (Bld) [Mass/Vol] 8.8 g/dL Low 13.0 - 17.0 g/dL [facility] Immature Gran % 0.2 % [facility] Lymphocytes (Bld) [#/Vol] 0.73 10*3/uL Low 1.00 - 4.00 k/uL [facility] Lymphocytes/100 WBC (Bld) 11.8 % [facility] MCH (RBC) [Entitic mass] 27.2 pg 26.0 - 34.[address] [facility] MCHC (RBC) [Mass/Vol] 32.5 g/dL 30.5 - 36.0 g/dL [facility] MCV (RBC) [Entitic vol] 83.6 fL 80.0 - 100.[address] [facility] Monocytes (Bld) [#/Vol] 0.67 10*3/uL <0.87 k/uL [facility] Monocytes/100 WBC (Bld) 10.8 % [facility] Neutrophils (Bld) [#/Vol] 4.54 10*3/uL 1.45 - 7.50 k/uL [facility] Neutrophils/100 WBC (Bld) 73.2 % [facility] Nucleated RBC (Bld) [#/Vol] 10*3/uL <0.01 k/uL [facility] Nucleated RBC/100 WBC (Bld) [Ratio] 0.0 /[address] [facility] Platelet mean volume (Bld) [Entitic vol] 10.2 fL 9.0 - 12.[address] [facility] Platelets (Bld) [#/Vol] 163 10*3/uL 150 - 400 k/uL [facility] RBC (Bld) [#/Vol] 3.24 10*6/uL Low 4.20 - 6.0 0 m/uL [facility] WBC (Bld) [#/Vol] 6.20 10*3/uL 3.70 - 11. 00 k/uL [facility] CNOVSPon 10-02-2021 CNOVSP Visit (SP) Office ([place]) GOPAL YATES ([id number]) 1965 M Date Time Provider Department 10/02/21 4:00 PM CONRAD ROJAS During your visit today, we recorded the following information about you: Temperature Pulse Respiration Blood pressure 97.5 degrees 61/minute 18/minute 138/58 Weight Height 91.6 kg 1.93 m Conrad Rojas MD 10/08/2021 9:04 PM Signed NAME: Gopal Yates NO.: [id number] DATE OF SERVICE: October 02, 2021 Referring Provider: Douglas Juárez Consultation requested by Dr. Juárez for an opinion regarding Mr. Gopal Yates , and my final recommendations will be communicated back to the requesting physician by way of shared medical record or letter via US mail. Additional Clinicians involved in Gopal Cheungcody STEPHEN's care: DIAGNOSIS: Elevated Matt:Lambda light chains ASSESSMENT: [...] Alkaline P (more content not included)... Normal [facility] Calcium.ionized [Moles/Vol]o n 10-02-2021 Calcium.ionized (Bld) [Mass/Vol] 1.20 mmol/L Normal 1.08-1.30 [facility] Comment on above: Order Comment: Speci men Type: BLOOD SPECIMENOrdering Facility: [facility] Address: [address] [place] [address] Performed By: #### 1 995-0 ####[facility] LABCLIA [id number] [address] STATES OF [facility] Calcium.ionized adjusted to pH 7.4 (Bld) [Moles/Vol] 1.19 mmol/L Normal 1.08-1.30 [facility] Comment on above: Order Comment: Speci men Type: BLOOD SPECIMENOrdering Facility: [facility] Address: [address] [place] [address] Performed By: #### 1 995-0 ####[facility] LABCLIA [id number] [place] [address] [facility] Comprehensive metabolic 2000 panelon 10-02-2021 Albumin [Mass/Vol] 3.6 g/dL Low 3.9-4.9 [facility] Comment on above: Order Comment: Speci men Type: BLOOD SPECIMEN [facility] Address: [address] [place] [address] Performed By: #### 5 7021-8 #### [facility] CLIA [id number] [address] [place] [address] ALP [Catalytic activity/Vol] 237 U/L High 38-113 [facility] Comment on above: Order Comment: Speci men Type: BLOOD SPECIMEN [facility] Address: [address] [place] [address] Performed By: #### 5 7021-8 #### [facility] CLIA [id number] [address] [place] [address] ALT [Catalytic activity/Vol] 23 U/L Normal 10-54 [facility] Comment on above: Order Comment: Speci men Type: BLOOD SPECIMEN [facility] Address: [address] [place] [address] Performed By: #### 5 7021-8 #### [facility] CLIA [id number] [address] [place] [address] Anion gap [Moles/Vol] 13 mmol/L Normal 9-18 [facility] Comment on above: Order Comment: Speci men Type: BLOOD SPECIMEN [facility] Address: [address] [place], [place] [address] Performed By: #### 5 7021-8 #### [facility] CLIA [id number] [address] [place] [address] AST [Catalytic activity/Vol] 23 U/L Normal 14-40 [facility] Comment on above: Order Comment: Speci men Type: BLOOD SPECIMEN [facility] Address: [address] [place], [place] [address] Performed By: #### 5 7021-8 #### [facility] CLIA [id number] [address] [place] [address] Bilirubin [Mass/Vol] 0.4 mg/dL Normal 0.2-1.3 [facility] Comment on above: Order Comment: Speci men Type: BLOOD SPECIMEN [facility] Address: [address] [place], [place] [address] Performed By: #### 5 7021-8 #### [facility] CLIA [id number] [address] [place] [address] Calcium [Mass/Vol] 8.9 mg/dL Normal 8.5-10.2 [facility] Comment on above: Order Comment: Speci men Type: BLOOD SPECIMEN [facility] Address: [address] [place], [place] [address] Performed By: #### 5 7021-8 #### [facility] CLIA [id number] [address] [place] [address] Chloride [Moles/Vol] 112 mmol/L High 97-105 [facility] Comment on above: Order Comment: Speci men Type: BLOOD SPECIMEN [facility] Address: [address] [place], [place] [address] Performed By: #### 5 7021-8 #### [facility] CLIA [id number] [address] [place] [address] CO2 [Moles/Vol] 18 mmol/L Low 22-30 [facility] Comment on above: Order Comment: Speci men Type: BLOOD SPECIMEN [facility] Address: [address] [place] [address] Performed By: #### 5 7021-8 #### [facility] CLIA [id number] [address] [place] [address] Creatinine [Mass/Vol] 3.91 mg/dL High 0.73-1.22 [facility] Comment on above: Order Comment: Speci men Type: BLOOD SPECIMEN [facility] Address: [address] [place] [address] Performed By: #### 5 7021-8 #### [facility] CLIA [id number] [address] [place] [address] ESTIMATED GLOMERULAR FILTRATION RATE 17 mL/min/1.73m??? Low >=60 [facility] Comment on above: Order Comment: Speci men Type: BLOOD SPECIMEN [facility] Address: [address] [place] [address] Result Comment: Trixie mated Glomerular Filtration Rate [...] GFR. Performed By: #### 5 7021-8 #### [facility] CLIA [id number] [address] [place] [address] Glucose [Mass/Vol] 125 mg/dL High 74-99 [facility] Comment on above: Order Comment: Speci men Type: BLOOD SPECIMEN [facility] Address: [address] [place] [address] Result Comment: The [place] [employer] (ADA) provides guidance for cutoff [...] Standards of Medical Care in Diabetes 2016, [place] [employer]. Diabetes Care. 2016.39(Suppl 1). Performed By: #### 5 7021-8 #### [facility] CLIA [id number] [address] [place] [address] Potassium [Moles/Vol] 4.0 mmol/L Normal 3.7-5.1 [facility] Comment on above: Order Comment: Speci men Type: BLOOD SPECIMEN [facility] Address: [address] [place] [address] Performed By: #### 5 7021-8 #### [facility] CLIA [id number] [address] [place] [address] Protein [Mass/Vol] 7.1 g/dL Normal 6.3-8.0 [facility] Comment on above: Order Comment: Speci men Type: BLOOD SPECIMEN [facility] Address: [address] [place] [address] Performed By: #### 5 7021-8 #### [facility] CLIA [id number] [address] [place] [address] Sodium [Moles/Vol] 143 mmol/L Normal 136-144 [facility] Comment on above: Order Comment: Speci men Type: BLOOD SPECIMEN [facility] Address: [address] [place] [place] [address] Performed By: #### 5 7021-8 #### [facility] CLIA [id number] [address] [place] [address] Urea nitrogen [Mass/Vol] 64 mg/dL High 9-24 [facility] Comment on above: Order Comment: Speci men Type: BLOOD SPECIMEN [facility] Address: [address] [place] [address] Performed By: #### 5 7021-8 #### [facility] CLIA [id number] [address] [place] [address] Albumin [Mass/Vol] 3.6 g/dL Low 3.9 - 4.9 g/dL [facility] ALP [Catalytic activity/Vol] 237 U/L High 38 - 113 U/L [facility] ALT [Catalytic activity/Vol] 23 U/L 10 - 54 U/L [facility] Anion gap [Moles/Vol] 13 mmol/L 9 - 18 mmol/L [facility] AST [Catalytic activity/Vol] 23 U/L 14 - 40 U/L [facility] Bilirubin [Mass/Vol] 0.4 mg/dL 0.2 - 1 .3 mg/dL [facility] Calcium [Mass/Vol] 8.9 mg/dL 8.5 - 10. 2 mg/dL [facility] Chloride [Moles/Vol] 112 mmol/L High 97 - 10 5 mmol/L [facility] CO2 [Moles/Vol] 18 mmol/L Low 22 - 30 mmol/L [facility] Creatinine [Mass/Vol] 3.91 mg/dL High 0.73 - 1.22 mg/dL [facility] Estimated Glomerular Filtration Rate 17 mL/min/1.73m Low >=60 mL/min/1.73m [facility] Glucose [Mass/Vol] 125 mg/dL High 74 - 99 mg/dL [facility] Potassium [Moles/Vol] 4.0 mmol/L 3.7 - 5.1 mmol/L [facility] Protein [Mass/Vol] 7.1 g/dL 6.3 - 8.0 g/dL [facility] Sodium [Moles/Vol] 143 mmol/L 136 - 144 mmol/L [facility] Urea nitrogen [Mass/Vol] 64 mg/dL High 9 - 24 mg/dL [facility] EPO SerPl-aCncon 10-02-2021 Erythropoietin (EPO) Qn 8.2 mIU/mL Normal 2.6-18.5 [facility] Comment on above: Order Comment: Speci men Type: BLOOD SPECIMENOrdering Facility: [facility] Address: [address] [place] [address] Performed By: #### 1 5061-5 ####[facility] LABCLIA [id number] [facility] [id number] STATES OF [facility] FREE LIGHT CHAINS PLUS RATIO on 10-02-2021 Free [place] Lt Chains,S 125.4 mg/L Critically high 3.3-19.4 [facility] Comment on above: Performed By: #### H NYDIA #### [facility] [address] [place] [address] Dr. Shilo Lam [place] Lt Chains,S 85.1 mg/L Critically high 5.7-26. 3 [facility] Comment on above: Performed By: #### H NYDIA #### [facility] [address] [place] [address] Dr. Shilo Lam [place]/Lambda Ratio, S 1.47 Normal 0.26-1.65 [facility] Comment on above: Performed By: #### H NYDIA #### [facility] [address] [place] [address] Dr. Shilo Lma Ferritin SerPl-mCncbarney 2021 Ferritin [Mass/Vol] 355.0 ng/mL Normal 30.3-565.7 [facility] Comment on above: Order Comment: Speci men Type: BLOOD SPECIMEN Ordering Facility: [facility] Address: [address] [place], [place] [id number] Performed By: #### 5 7021-8 #### [facility] CLIA [id number] [address] [place] [address] Folate SerPl-mCncon 10-03-19 Folate [Mass/Vol] 10.6 ng/mL Normal >4.7 [facility] Comment on above: Order Comment: Speci men Type: BLOOD SPECIMENOrdering Facility: [facility] Address: [address] [place], [place] [address] Performed By: #### 2 132-9, 2284-8, 2885-2 ####[facility]CLIA [id number] [place] [address] [place] IMMUNOFIXATION SCREEN, SERUM on 10-02-2021 MPA RESULT No M protein is identified. Normal No M protein is identified. [facility] Comment on above: Order Comment: Speci men Type: BLOOD SPECIMEN Ordering Facility: [facility] Address: [address] [place], [place] [address] Performed By: #### 5 7021-8 #### [facility] CLIA [id number] [address] [place] [address] STAFF REVIEW (MPA) Reviewed by Darlene Whaley MD Normal [facility] Comment on above: Order Comment: Speci men Type: BLOOD SPECIMEN Ordering Facility: [facility] Address: [address] [place] [address] Performed By: #### 5 7021-8 #### [facility] CLIA [id number] [address] [place], [place] [address] IMMUNOGLOBULINS GAMon 2021 IgA [Mass/Vol] 479 mg/dL High 70-400 [facility] Comment on above: Order Comment: Speci men Type: BLOOD SPECIMENOrdering Facility: [facility] Address: [address] [place], [place] [address] Performed By: #### S ERIMM ####[facility] LABCLIA [id number] [place] [address] [place] IgG [Mass/Vol] 1405 mg/dL Normal 700-1,600 [facility] Comment on above: Order Comment: Speci men Type: BLOOD SPECIMENOrdering Facility: [facility] Address: [address] [place], [place] [address] Performed By: #### S ERIMM ####[facility] LABCLIA [id number] [place] [address] [place] IgM [Mass/Vol] 136 mg/dL Normal 40-230 [facility] Comment on above: Order Comment: Speci men Type: BLOOD SPECIMENOrdering Facility: [facility] Address: [address] [place] [address] Performed By: #### S DEVONIMM ####[facility] LABCLIA [id number] [place] [address] [place] Iron and Iron binding capaci ty panel 10-02-2021 Iron [Mass/Vol] 41 ug/dL 41 - 186 ug/dL [facility] Iron binding capacity [Mass/Vol] 199 ug/dL Low 232 - 386 ug/dL [facility] Iron/TIBC [Molar ratio] 20.6 % 15.0 - 57.0 % [facility] Iron [Mass/Vol] 41 ug/dL Normal 41-186 [facility] Comment on above: Order Comment: Speci men Type: BLOOD SPECIMEN Ordering Facility: [facility] Address: [address] [place], [place] [address] Performed By: #### 5 7021-8 #### [facility] CLIA [id number] [address] [place] [address] Iron binding capacity [Mass/Vol] 199 ug/dL Low 232-386 [facility] Comment on above: Order Comment: Speci men Type: BLOOD SPECIMEN Ordering Facility: [facility] Address: [address] [place], [place] [address] Performed By: #### 5 7021-8 #### [facility] CLIA [id number] [address] [place] [address] Iron/TIBC [Molar ratio] 20.6 % Normal 15.0-57.[address] [facility] Comment on above: Order Comment: Speci men Type: BLOOD SPECIMEN Ordering Facility: [facility] Address: [address] [place], [place] [address] Performed By: #### 5 7021-8 #### [facility] CLIA [id number] [address] [place] [address] KAPPA/GARDNER,FREE,SERon 2021 Immunoglobulin light chains.kappa.free (S) [Mass/Vol] 124.9 mg/L High 3.3-19.4 [facility] Comment on above: Order Comment: Speci men Type: BLOOD SPECIMENOrdering Facility: [facility] Address: [address] [place] [address] Performed By: #### K LFRS ####[facility] LABCLIA [id number] [place] [address] [place] Immunoglobulin light chains.kappa/Immunoglob ulin light chains.lambda (S) [Mass ratio] 1.52 Normal 0.26-1.65 [facility] Comment on above: Order Comment: Speci men Type: BLOOD SPECIMENOrdering Facility: [facility] Address: [address] [place] [address] Performed By: #### K LFRS ####[facility] LABIA [id number] [place] [address] [place] Immunoglobulin light chains.lambda.free [Mass/Vol] 82.3 mg/L High 5.7-26.3 [facility] Comment on above: Order Comment: Speci men Type: BLOOD SPECIMENOrdering Facility: [facility] Address: [address] [place] [address] Performed By: #### K LFRS ####[facility] LABIA [id number] [place] [address] [place] LD LACTATE DEHYDROon 022 LDH [Catalytic activity/Vol] 165 U/L 135 - 225 U/L [facility] LDH SerPl-cCncon 10-02-2021 LDH [Catalytic activity/Vol] 165 U/L Normal 135-225 [facility] Comment on above: Order Comment: Speci men Type: BLOOD SPECIMEN Ordering Facility: [facility] Address: [address] [place] [address] Performed By: #### 5 7021-8 #### [facility] CLIA [id number] [address] [place] [address] PHOSPHORUS INORGANICon 10-02 Phosphate [Mass/Vol] 3.8 mg/dL 2.7 - 4 .8 mg/dL [facility] PROTEIN ELECTROPHORESIS SERU M (P)on 10-02-2021 Albumin [Mass/Vol] 3.22 g/dL Low 3.37-4.23 [facility] Comment on above: Order Comment: Speci men Type: BLOOD SPECIMENOrdering Facility: [facility] Address: [address] [place] [address] Performed By: #### L [id number] ####[facility] LABCLIA [id number] [place] [address] [place] Alpha 1 globulin Elph [Mass/Vol] 0.33 g/dL High 0.18-0.31 [facility] Comment on above: Order Comment: Speci men Type: BLOOD SPECIMENOrdering Facility: [facility] Address: [address] [place] [address] Performed By: #### L [id number] ####[facility] LABCLIA [id number] [place] [address] [place] Alpha 2 globulin Elph [Mass/Vol] 0.84 g/dL Normal 0.52-0.97 [facility] Comment on above: Order Comment: Speci men Type: BLOOD SPECIMENOrdering Facility: [facility] Address: [address] [place], [place] [address] Performed By: #### L [id number] ####[facility] LABCLIA [id number] [place] [address] [place] Beta globulin Elph [Mass/Vol] 0.97 g/dL Normal 0.84-1.36 [facility] Comment on above: Order Comment: Speci men Type: BLOOD SPECIMENOrdering Facility: [facility] Address: [address] [place] [address] Performed By: #### L [id number] ####[facility] LABIA [id number] [address] [place] Gamma globulin Elph (Body fld) [Mass fraction] 1.64 g/dL High 0.70-1.44 [facility] Comment on above: Order Comment: Speci men Type: BLOOD SPECIMENOrdering Facility: [facility] Address: [address] [place], [place] [address] Performed By: #### L [id number] ####[facility] [id number] [address] [place] M-PROTEIN LOCATION Normal [facility] Comment on above: Order Comment: Speci men Type: BLOOD SPECIMENOrdering Facility: [facility] Address: [address] [place] [address] Result Comment: Not Applicable. Performed By: #### L [id number] ####[facility] [id number] [address] [place] Protein Fractions [Interp] No definitive M protein is identified on protein electrophoresis. Normal No definitive M protein is identified on protein electrophores is. [facility] Comment on above: Order Comment: Speci men Type: BLOOD SPECIMENOrdering Facility: [facility] Address: [address] [place], [place] [address] Performed By: #### L [id number] ####[facility] LABIA [id number] [address] [place] Protein.monoclonal Elph [Mass/Vol] 0.00 g/dL Normal <=0.00 [facility] Comment on above: Order Comment: Speci men Type: BLOOD SPECIMENOrdering Facility: [facility] Address: [address] [place], [place] [address] Performed By: #### L [id number] ####[facility] LABIA [id number] [place] [address] [place] SPE STAFF REVIEW Reviewed by Darlene Whaley MD Normal [facility] Comment on above: Order Comment: Speci men Type: BLOOD SPECIMENOrdering Facility: [facility] Address: [address] [place] [address] Performed By: #### L [id number] ####[facility] LABCLIA [id number] [place] [address] [place] Phosphate SerPl-mCncon 10-02 Phosphate [Mass/Vol] 3.8 mg/dL Normal 2.7-4.8 [facility] Comment on above: Order Comment: Speci men Type: BLOOD SPECIMENOrdering Facility: [facility] Address: [address] [place] [address] Performed By: #### 3 084-1, 29625-9, 2532-0, 2777-1 ####[facility] LABCLIA [id number] [place] [id number] Prot SerPl-mCncon 10-02-2021 Protein [Mass/Vol] 7.0 g/dL Normal 6.3-8.0 [facility] Comment on above: Order Comment: Speci men Type: BLOOD SPECIMENOrdering Facility: [facility] Address: [address] [place] [address] Performed By: #### 2 132-9, 2284-8, 2885-2 ####[facility] LABCLIA [id number] [place] [address] [place] URIC ACID BLOODon 10-02-2021 Urate [Mass/Vol] 6.7 mg/dL 4.0 - 8.1 mg/dL [facility] Urate SerPl-mCncon Urate [Mass/Vol] 6.7 mg/dL Normal 4.0-8.1 [facility] Comment on above: Order Comment: Speci men Type: BLOOD SPECIMENOrdering Facility: [facility] Address: [address] [id number] Performed By: #### 3 084-1, 69772-5, 2532-0, 2777-1 ####[facility] LABCLIA [id number] [place] [id number] Vit B12 SerPl[facility] 10[facility]- 022 Cobalamin (Vitamin B12) [Mass/Vol] 647 pg/mL Normal 232-1,245 [facility] Comment on above: Order Comment: Speci men Type: BLOOD SPECIMENOrdering Facility: [facility] Address: [address] [place] [place] [address] Performed By: #### 2 132-9, 2284-8, 2885-2 ####[facility] LABCLIA [id number] [place] [address] [place] FREE LIGHT CHAINS PLUS RATIO on 09-24-2021 Free [place] Lt Chains,S 132.3 mg/L Critically high 3.3-19.4 [facility] Comment on above: Performed By: #### F REELIT #### [facility] [address] [place] [address] Dr. Shilo Lam Free [place] Lt Chains,S 83.4 mg/L Critically high 5.7-26. 3 [facility] Comment on above: Performed By: #### F REELIT #### [facility] [address] [place] [address] [address] Shilo Lam [place]/Lambda Ratio, S 1.59 Normal 0.26-1.65 [facility] Comment on above: Performed By: #### F REELIT #### [facility] [address] [place] [address] [address] Shilo Lam IMMUNOFIXATION (DARYL), URINEo n 09-24-2021 DARYL Interpretation:U Comment Normal [facility] Comment on above: Result Comment: No m onoclonality detected. Performed By: #### I MUNFXU #### [facility] [address] [address] [address] Shilo Lam PTH INTACTon 09-20-2021 PTH, Intact 73 pg/mL Critically high 15-65 [facility] Comment on above: Performed By: #### F REELIT #### [facility] [address] [place] [address] Dr. Shilo Lam FERRITINon 09-19-2021 Ferritin [Mass/Vol] 324.0 ng/mL Normal 26.0-388.0 [facility] Comment on above: Performed By: #### H H #### [facility] [address] [place] [address] Dr. Shilo Lam HEMOGRAM AND PLATELon 2021 Hematocrit (Bld) [Volume fraction] 26.6 % Critically low 42.0-54.0 [facility] Comment on above: Performed By: #### H BSANS #### [facility] [address] [place] [address] Dr. Shilo Lam Hemoglobin (Bld) [Mass/Vol] 8.8 g/dL Critically low 14.0-18.0 [facility] Comment on above: Performed By: #### H BSANS #### [facility] [address] [place] [address] Dr. Shilo Lam MCH (RBC) [Entitic mass] 27.7 pg Normal 25.9-34.0 [facility] Comment on above: Performed By: #### H BSANS #### [facility] [address] [place] [address] Dr. Shilo Lam MCHC (RBC) [Mass/Vol] 33.1 g/dL Normal 29.9-35.2 [facility] Comment on above: Performed By: #### H BSANS #### [facility] [address] [place] [address] Dr. Shilo Lam MCV (RBC) [Entitic vol] 83.6 fL Normal 80.0-94.0 [facility] Comment on above: Performed By: #### H BSANS #### [facility] [address] [place] [address] Dr. Shilo Lam PLT 155 103/ul Normal 150-450 [facility] Comment on above: Performed By: #### H BSANS #### [facility] [address] [address] [address] Shilo Lam RBC 3.18 106/ul Critically low 4.70-6.10 [facility] Comment on above: Performed By: #### H BSANS #### [facility] [address] [address] [address] Shilo Lam WBC 6.1 103/ul Normal 4.0-11.0 [facility] Comment on above: Performed By: #### H BSANS #### [facility] [address] [place] [address] [address] Shilo Lam IRON AND TIBCon 09-19-2021 % SATURATION 20.0 % Normal [facility] Comment on above: Performed By: #### H H #### [facility] [address] [place] [address] Dr. Shilo Lam Iron [Mass/Vol] 44.0 ug/dL Critically low 65.0-175.0 [facility] Comment on above: Performed By: #### H H #### [facility] [address] [place] [address] Dr. Shilo Lam TIBC DIRECT 220.0 ug/dL Critically low 250.0-450.0 [facility] Comment on above: Performed By: #### H H #### [facility] [address] [place] [address] Dr. Shilo Lam PROF 14(COMP METB)on 022 Albumin [Mass/Vol] 2.8 g/dL Critically low 3.4-5.0 Th e [facility] Comment on above: Performed By: #### F REELIT #### [facility] [address] [place] [address] [address] Shilo Lam Albumin/Globulin [Mass ratio] 0.6 {ratio} Normal [facility] Comment on above: Performed By: #### F REELIT #### [facility] [address] [address] [address] Shilo Lam ALP [Catalytic activity/Vol] 219 U/L Critically high 46-116 [facility] Comment on above: Performed By: #### F REELIT #### [facility] [address] [address] [address] Shilo Lam ALT [Catalytic activity/Vol] 33 U/L Normal 16-63 [facility] Comment on above: Performed By: #### F REELIT #### [facility] [address] [address] [address] Shilo Lam Anion gap [Moles/Vol] 14.7 mmol/L Normal Th [facility] Comment on above: Performed By: #### F REELIT #### [facility] [address] [address] [address] Shilo Lam AST [Catalytic activity/Vol] 22 U/L Normal 15-37 [facility] Comment on above: Performed By: #### F REELIT #### [facility] [address] [address] [address] Shilo Lam Bilirubin [Mass/Vol] 0.4 mg/dL Normal 0.2-1.0 [facility] Comment on above: Performed By: #### F REELIT #### [facility] [address] [address] [address] Shilo Lam Calcium [Mass/Vol] 8.4 mg/dL Critically low 8.5-10.1 [facility] Comment on above: Performed By: #### F REELIT #### [facility] [address] [address] [address] Shilo Lam Chloride [Moles/Vol] 109 mmol/L Critically high 98-107 [facility] Comment on above: Performed By: #### F REELIT #### [facility] [address] [address] [address] Shilo Lam CO2 [Moles/Vol] 21.3 mmol/L Normal 21.0-32.0 [facility] Comment on above: Performed By: #### F REELIT #### [facility] [address] [address] [address] Shilo Lam Creatinine [Mass/Vol] 3.99 mg/dL Critically high 0.70-1.30 [facility] Comment on above: Performed By: #### F REELIT #### [facility] [address] [address] [address] Shilo Lam EGFR-AF ROMANIAN 19 mL/min/1.73m2 Critically low >=60 [facility] Comment on above: Performed By: #### F REELIT #### [facility] [address] [place] [address] [address] Shilo Lam EGFR-NON AF ROMANIAN 16 mL/min/1.73m2 Critically low >=60 [facility] Comment on above: Performed By: #### F REELIT #### [facility] [address] [address] [address] Shilo Lam Globulin (S) [Mass/Vol] 4.8 g/dL Normal [facility] Comment on above: Performed By: #### F REELIT #### [facility] [address] [place] [address] Dr. Shilo Lam Glucose [Mass/Vol] 137 mg/dL Critically high 74-106 [facility] Comment on above: Performed By: #### F REELIT #### [facility] [address] [place] [address] Dr. Shilo Lam Potassium [Moles/Vol] 4.0 mmol/L Normal 3.5-5.1 [facility] Comment on above: Performed By: #### F REELIT #### [facility] [address] [place] [address] Dr. Shilo Lam Protein [Mass/Vol] 7.6 g/dL Normal 6.4-8.2 [facility] Comment on above: Performed By: #### F REELIT #### [facility] [address] [place] [address] Dr. Shilo Lam Sodium [Moles/Vol] 141 mmol/L Normal 136-145 [facility] Comment on above: Performed By: #### F REELIT #### [facility] [address] [place] [address] Dr. Shilo Lam Urea nitrogen [Mass/Vol] 54.0 mg/dL Critically high 7.0-18.0 [facility] Comment on above: Performed By: #### F REELIT #### [facility] [address] [place] [address] Dr. Shilo Lam Urea nitrogen/Creatinine [Mass ratio] 13.5 mg/mg Normal [facility] Comment on above: Performed By: #### F REELIT #### [facility] [address] [place] [address] Dr. Shilo Lam UA RANDOMon 09-19-2021 Bilirubin Ql (U) Negative Normal NEGATIVE [facility] Comment on above: Performed By: #### H H #### [facility] [address] [place] [address] Dr. Shilo Lam Clarity (U) CLEAR Normal CLEAR [facility] Comment on above: Performed By: #### H H #### [facility] [address] [place] [address] Dr. Shilo Lam Color (U) LT. YELLOW Normal YELLOW [facility] Comment on above: Performed By: #### H H #### [facility] [address] [place] [address] Dr. Shilo Lam Glucose Ql (U) 100 mg/dl Abnormal NEGATIVE [facility] Comment on above: Performed By: #### H H #### [facility] [address] [place] [address] Dr. Shilo Lam Hemoglobin Ql (U) Negative Normal NEGATIVE [facility] Comment on above: Performed By: #### H H #### [facility] [address] [place] [address] Dr. Shilo Lam Ketones Ql (U) Negative Normal NEGATIVE [facility] Comment on above: Performed By: #### H H #### [facility] [address] [place] [address] Dr. Shilo Lam LEUKOCYTES Negative Normal NEGATIVE [facility] Comment on above: Performed By: #### H H #### [facility] [address] [place] [address] Dr. Shilo Lam Nitrite Ql (U) Negative Normal NEGATIVE [facility] Comment on above: Performed By: #### H H #### [facility] [address] [place] [address] Dr. Shilo Lam pH (U) 5.5 [pH] Normal 5-9 [facility] Comment on above: Performed By: #### H H #### [facility] [address] [place] [address] Dr. Shilo Lam SPEC GRAVITY 1.025 Normal 1.005-<=1.025 [facility] Comment on above: Performed By: #### H H #### [facility] [address] [place] [address] Dr. Shilo Lam UA PROTEIN >300 Abnormal NEGATIVE/ TRACE [facility] Comment on above: Performed By: #### H H #### [facility] [address] [place] [address] Dr. Shilo Lam Urobilinogen Qn (U) 0.2 {Gama'U}/dL Normal 0.2 - 1. 0 [facility] Comment on above: Performed By: #### H H #### [facility] [address] [place] [address] Dr. Shilo Lam URINE T PROTEIN CREAT RATIOo n 09-19-2021 Protein (U) [Mass/Vol] 862.4 mg/dL Critically high <=12.0 [facility] Comment on above: Performed By: #### H BSANS #### [facility] [address] [place] [address] Dr. Shilo Lam UR PROT CREAT RAT 8.46 Normal The [facility] Comment on above: Performed By: #### H BSANS #### [facility] [address] [place] [address] Dr. Shilo Lam URINE CREAT 101.94 mg/dL Normal 20.00-300.00 [facility] Comment on above: Performed By: #### H BSANS #### [facility] [address] [place] [address] Dr. Shilo Lam VITAMIN D 25 OHon 09-19-2021 VIT D 25-OH 27.7 ng/mL Normal [facility] Comment on above: Performed By: #### H H #### [facility] [address] [place], [place] [address] Dr. Shilo Lam VIT D RANGES SEE BELOW Normal The [facility] Comment on above: Result Comment: <20 ng/mL Vit D deficient 20 - <30 ng/mL Vit D insufficient 30 - 100 ng/mL Vit D sufficient >100 ng/mL Potential Toxicity Performed By: #### H H #### [facility] [address] [place] [address] [address] Shilo Lam Cardiovascular Lab Reporton 05-21-2021 Cardiovascular Lab Report [facility] Patient Name: [facility] MR #: [id number] Physician: Casimiro Khalil of [facility] Service Date: 05/20/2021 Division of Birthdate: 1965 Cardiology Room #: [facility] Cardiovascular Services [place] [address] Cardiovascular Laboratory Report INDICATION: The patient is [...] He signed consent. He was brought to bed laborer in a fasting state. The right neck area was prepped and draped in usual fashion. Micropuncture technique and ultrasound guidance was used for access in the right internal jugular vein. A 6-Estonian x 11 cm sheath was placed. A 6-Estonian Silvestre catheter was used for heart catheterization [...] output 11.61, cardiac index 5.23. FINDINGS: 1. Hivl-ya-qrkkntqw elevation of filling pressures. 2. Dcfu-kq-suijymhy pulmonary hypertension. 3. No evidence of intracardiac [...] Sosa M.D. Date Trans: 05/21/2021 03:58 A/katey [id number] cc: Douglas Juárez M.D. [address], [facility] [address] Normal [facility] CBC W/DIFFon 05-20-2021 ABS IMM GRANS 0.0 10*3/uL Normal 0.0-0.2 [facility] Comment on above: Performed By: #### 5 0103 #### [facility] [address] [place] [address], [facility] ABS NEUTROPHILS 4.5 10*3/uL Normal 1.6-7.6 [facility] Comment on above: Performed By: #### 5 0103 #### [facility] [address] [place] [address], [facility] Basophils (Bld) [#/Vol] 0.0 10*3/uL Normal 0.0-0.2 [facility] Comment on above: Performed By: #### 5 0103 #### [facility] [address] [place] [address], [facility] Basophils/100 WBC (Bld) 0.5 % Normal 0.0-1.[address] [facility] Comment on above: Performed By: #### 5 0103 #### [facility] [address] [place] [address], [facility] Eosinophils (Bld) [#/Vol] 0.2 10*3/uL Normal 0.0-0.5 [facility] Comment on above: Performed By: #### 5 0103 #### [facility] [address] [place] [id number], [facility] Eosinophils/100 WBC (Bld) 3.1 % Normal 0.0-6.0 [facility] Comment on above: Performed By: #### 5 0103 #### [facility] [address] [place] [address], [facility] Erythrocyte distribution width (RBC) [Ratio] 16.1 % High 11.5-15.0 [facility] Comment on above: Performed By: #### 5 0103 #### [facility] [address] [place] [id number], [facility] Hematocrit (Bld) [Volume fraction] 27.0 % Low 39.0-50.0 [facility] Comment on above: Performed By: #### 5 3 #### [facility] [address] [place] [id number], [facility] Hemoglobin (Bld) [Mass/Vol] 8.5 g/dL Low 13.0-17.0 [facility] Comment on above: Performed By: #### 5 0103 #### [facility] [address] [facility] [place] [address], [facility] IMMATURE GRANS 0.2 % Normal 0.0-1.0 [facility] Comment on above: Performed By: #### 5 3 #### [facility] [address] [facility] [address], [facility] Lymphocytes (Bld) [#/Vol] 0.7 10*3/uL Low 1.2-4.0 [facility] Comment on above: Performed By: #### 5 0103 #### [facility] [address] [place] [address], [facility] Lymphocytes/100 WBC (Bld) 11.1 % Low 20.0-45.0 [facility] Comment on above: Performed By: #### 5 3 #### [facility] [address] MCH (RBC) [Entitic mass] 25.1 pg Low 27.0-33.0 [facility] Comment on above: Performed By: #### 5 0103 #### [facility] [address] [place] [address], [facility] MCHC (RBC) [Mass/Vol] 31.5 g/dL Low 32.0-35.0 [facility] Comment on above: Performed By: #### 5 3 #### [facility] [address] [place] [address], [facility] MCV (RBC) [Entitic vol] 79.9 fL Low 82.0-98.0 T [facility] Comment on above: Performed By: #### 5 3 #### [facility] [address] [place] [address], [facility] Monocytes (Bld) [#/Vol] 0.7 10*3/uL Normal 0.1-1.0 [facility] Comment on above: Performed By: #### 5 0103 #### [facility] [address] MONOS 12.1 % High 5.0-12.0 [facility] Comment on above: Performed By: #### 5 0103 #### [facility] [address] [place] [address], [facility] Neutrophils/100 WBC (Bld) 73.0 % High 40.0-72.0 [facility] Comment on above: Performed By: #### 5 0103 #### [facility] [address] Nucleated RBC/100 WBC (Bld) [Ratio] 0 % Normal 0-0 [facility] Comment on above: Performed By: #### 5 010 #### [facility] [address] PLAT CNT 154 10*3/uL Normal 150-400 [facility] Comment on above: Performed By: #### 5 0103 #### [facility] [address] RBC (Bld) [#/Vol] 3.38 10*6/uL Low 4.20-5.70 [facility] Comment on above: Performed By: #### 5 0103 #### [facility] [address] WBC (Bld) [#/Vol] 6.14 10*3/uL Normal 4.00-10.60 [facility] Comment on above: Performed By: #### 5 3 #### [facility] [address] POC SARS COV2 IDon 2 SARS-CoV-2 (COVID-19) RNA HUMBLE+probe Ql (Unsp spec) Negative Normal NEGATIVE [facility] Comment on above: Result Comment: ID N [...] Accreditation. Performed By: #### 3 1921 #### [address] Vital Signs Date Time Vital Sign Value Performing Clinician Facility 09-25-2024 13:26-0400 Body height 193 cm Leann Corado DPM Work Phone: [facility] 09-25-2024 13:26-0400 Body mass index (BMI) [Ratio] 23.49 kg/m2 Leann Corado DPM Work Phone: [facility] 09-25-2024 13:26-0400 Body weight 87.54 kg Leann Corado DPM Work Phone: [facility] 08-10-2024 13:30-0400 Body height 193.04 cm [facility] 08-10-2024 13:30-0400 Body mass index (BMI) [Ratio] 25.3 kg/m2 [facility] 08-10-2024 13:30-0400 Body weight 94.34 kg [facility] 08-10-2024 13:30-0400 Diastolic blood pressure 70 mm[Hg] [facility] 08-10-2024 13:30-0400 Heart rate 70 /min [facility] 08-10-2024 13:30-0400 Systolic blood pressure 118 mm[Hg] [facility] 07-18-2024 13:44-0400 Body height 193 cm Leann Corado DPM Work Phone: [facility] 07-18-2024 13:44-0400 Body mass index (BMI) [Ratio] 23.49 kg/m2 Leann Corado DPM Work Phone: [facility] 07-18-2024 13:44-0400 Body weight 87.54 kg Leann Corado DPM Work Phone: [facility] 09-16-2023 14:32-0400 Blood Pressure Location [facility]utosh [facility] 09-16-2023 14:32-0400 Diastolic blood pressure 69 mm[Hg] [facility]utosh [facility] 09-16-2023 14:32-0400 Heart rate 66 /min [facility] 09-16-2023 14:32-0400 Respiratory rate 16 /min [facility] 09-16-2023 14:32-0400 Systolic blood pressure 107 mm[Hg] [facility] N[facility] 06-15-2022 10:20-0400 Body temperature 97.8 [degF] MD Douglas Jáurez Work Phone: [facility] 06-15-2022 10:20-0400 Diastolic blood pressure 64 mm[Hg] MD Douglas Juárez Work Phone: [facility] 06-15-2022 10:20-0400 Heart rate 55 /min MD Douglas Juárez Work Phone: [facility] 06-15-2022 10:20-0400 Respiratory rate 22 /min MD Douglas Juárez Work Phone: [facility] 06-15-2022 10:20-0400 SaO2% (BldA) [Mass fraction] 92 % MD Douglas Juárez Work Phone: [facility] 06-15-2022 10:20-0400 Systolic blood pressure 128 mm[Hg] MD Douglas Juárez Work Phone: [facility] 06-15-2022 04:31-0400 Inhaled oxygen flow rate 1 L/min MD Douglas Juárez Work Phone: [facility] 06-12-2022 14:43-0400 Body height 193.04 cm MD Douglas Juárez Work Phone: [facility] 06-12-2022 04:46-0400 Body weight 92 kg MD Douglas Juárez Work Phone: [facility] 06-11-2022 21:13-0400 Body height 193.04 cm MD Douglas Juárez Work Phone: [facility] 06-11-2022 21:13-0400 Body temperature 98.5 [degF] MD Douglas Juárez Work Phone: [facility] 06-11-2022 21:13-0400 Body weight 92 kg MD Douglas Juárez Work Phone: [facility] 06-11-2022 21:13-0400 Diastolic blood pressure 77 mm[Hg] MD Douglas Juárez Work Phone: [facility] 06-11-2022 21:13-0400 Heart rate 66 /min MD Douglas Juárez Work Phone: [facility] 06-11-2022 21:13-0400 Respiratory rate 21 /min MD Douglas Juárez Work Phone: [facility] 06-11-2022 21:13-0400 SaO2% (BldA) [Mass fraction] 92 % MD Douglas Juárez Work Phone: [facility] 06-11-2022 21:13-0400 Systolic blood pressure 161 mm[Hg] MD Douglas Juárez Work Phone: [facility] 06-08-2022 11:40-0400 Body temperature 98.1 [degF] MD Douglas Juárez Work Phone: [facility] 06-08-2022 11:40-0400 Diastolic blood pressure 60 mm[Hg] MD Douglas Juárez Work Phone: [facility] 06-08-2022 11:40-0400 Heart rate 62 /min MD Douglas Juárez Work Phone: [facility] 06-08-2022 11:40-0400 Systolic blood pressure 113 mm[Hg] MD Douglas Juárez Work Phone: [facility] 06-05-2022 11:21-0400 Respiratory rate 18 /min MD Douglas Juárez Work Phone: [facility] 06-05-2022 11:21-0400 SaO2% (BldA) [Mass fraction] 97 % MD Douglas Juárez Work Phone: [facility] 05-28-2022 15:20-0500 Diastolic blood pressure 72 mm[Hg] MD Douglas Juárez Work Phone: [facility] 05-28-2022 15:20-0500 Heart rate 64 /min MD Douglas Juárez Work Phone: [facility] 05-28-2022 15:20-0500 Respiratory rate 16 /min MD Douglas Juárez Work Phone: [facility] 05-28-2022 15:20-0500 SaO2% (BldA) [Mass fraction] 95 % MD Douglas Juárez Work Phone: [facility] 05-28-2022 15:20-0500 Systolic blood pressure 142 mm[Hg] MD Douglas Juárez Work Phone: [facility] 05-28-2022 14:46-0500 Body temperature 98.4 [degF] MD Douglas Juárez Work Phone: [facility] 05-28-2022 14:16-0500 Inhaled oxygen flow rate 8 L/min MD Douglas Juárez Work Phone: [facility] 05-28-2022 12:45-0500 Body height 193.04 cm MD Douglas Juárez Work Phone: [facility] 05-28-2022 12:45-0500 Body mass index (BMI) [Ratio] 23.1 kg/m2 MD Douglas Juárez Work Phone: [facility] 05-28-2022 12:45-0500 Body weight 86.18 kg MD Douglas Juárez Work Phone: [facility] 05-25-2022 16:07-0500 Body temperature 98.2 [degF] MD Douglas Juárez Work Phone: [facility] 05-25-2022 16:07-0500 Diastolic blood pressure 73 mm[Hg] MD Douglas Juárez Work Phone: [facility] 05-25-2022 16:07-0500 Heart rate 62 /min MD Douglas Juárez Work Phone: [facility] 05-25-2022 16:07-0500 SaO2% (BldA) [Mass fraction] 98 % MD Douglas Juárez Work Phone: [facility] 05-25-2022 16:07-0500 Systolic blood pressure 154 mm[Hg] MD Douglas Juárez Work Phone: [facility] 05-25-2022 11:37-0500 Respiratory rate 16 /min MD Douglas Juárez Work Phone: [facility] 05-25-2022 05:13-0500 Body weight 87 kg MD Douglas Juárez Work Phone: [facility] 05-21-2022 17:46-0500 Body height 193.04 cm MD Douglas Juárez Work Phone: [facility] 05-21-2022 17:46-0500 Body mass index (BMI) [Ratio] 22.6 kg/m2 MD Douglas Juárez Work Phone: [facility] 05-20-2022 15:10-0500 Body temperature 99 [degF] MD Douglas Juárez Work Phone: [facility] 05-20-2022 15:10-0500 Diastolic blood pressure 64 mm[Hg] MD Douglas Juárez Work Phone: [facility] 05-20-2022 15:10-0500 Heart rate 69 /min MD Douglas Juárez Work Phone: [facility] 05-20-2022 15:10-0500 Respiratory rate 18 /min MD Douglas Juárez Work Phone: [facility] 05-20-2022 15:10-0500 SaO2% (BldA) [Mass fraction] 95 % MD Douglas Juárez Work Phone: [facility] 05-20-2022 15:10-0500 Systolic blood pressure 126 mm[Hg] MD Doulgas Juárez Work Phone: [facility] 05-20-2022 10:16-0500 Body height 193.04 cm MD Douglas Juárez Work Phone: [facility] 05-20-2022 10:16-0500 Body weight 90.71 kg MD Douglas Juárez Work Phone: [facility] 05-08-2022 15:41-0500 Body temperature 99.2 [degF] MD Douglas Juárez Work Phone: [facility] 05-08-2022 15:41-0500 Diastolic blood pressure 64 mm[Hg] MD Douglas Juárez Work Phone: [facility] 05-08-2022 15:41-0500 Heart rate 60 /min MD Douglas Juárez Work Phone: [facility] 05-08-2022 15:41-0500 Respiratory rate 16 /min MD Douglas Juárez Work Phone: [facility] 05-08-2022 15:41-0500 SaO2% (BldA) [Mass fraction] 95 % MD Douglas Juárez Work Phone: [facility] 05-08-2022 15:41-0500 Systolic blood pressure 138 mm[Hg] MD Douglas Juárez Work Phone: [facility] 05-08-2022 10:00-0500 Body height 193.04 cm MD Douglas Juárez Work Phone: [facility] 05-08-2022 04:10-0500 Body weight 90.71 kg MD Douglas Juárez Work Phone: [facility] 05-07-2022 11:42-0500 Body mass index (BMI) [Ratio] 23.8 kg/m2 MD Douglas Juárez Work Phone: [facility] 05-05-2022 16:22-0500 Diastolic blood pressure 58 mm[Hg] MD Douglas Juárez Work Phone: [facility] 05-05-2022 16:22-0500 Heart rate 65 /min MD Douglas Juárez Work Phone: [facility] 05-05-2022 16:22-0500 Respiratory rate 18 /min MD Douglas Juárez Work Phone: [facility] 05-05-2022 16:22-0500 SaO2% (BldA) [Mass fraction] 100 % MD Douglas Juárez Work Phone: [facility] 05-05-2022 16:22-0500 Systolic blood pressure 126 mm[Hg] MD Douglas Juárez Work Phone: [facility] 05-05-2022 11:33-0500 Body height 193.04 cm MD Douglas Juárez Work Phone: [facility] 05-05-2022 11:33-0500 Body temperature 98.2 [degF] MD Douglas Juárez Work Phone: [facility] 05-05-2022 11:33-0500 Body weight 89 kg MD Douglas Juárez Work Phone: [facility] 04-16-2022 14:51-0500 Body height 193 cm Monik Dotson APRN.STREET INSPECTOR Work Phone: [facility] 04-16-2022 14:51-0500 Body temperature 97 [degF] Monik Dotson SANDFILL OPERATOR.STREET INSPECTOR Work Phone: [facility] 04-16-2022 14:51-0500 Body weight 89.81 kg Monik Dotson SANDFILL OPERATOR.STREET INSPECTOR Work Phone: [facility] 04-16-2022 14:51-0500 Diastolic blood pressure 61 mm[Hg] Monik Dotson SANDFILL OPERATOR.STREET INSPECTOR Work Phone: [facility] 04-16-2022 14:51-0500 Heart rate 59 /min Monik Dotson SANDFILL OPERATOR.STREET INSPECTOR Work Phone: [facility] 04-16-2022 14:51-0500 Respiratory rate 18 /min Monik Dotson SANDFILL OPERATOR.STREET INSPECTOR Work Phone: [facility] 04-16-2022 14:51-0500 SaO2% (BldA) [Mass fraction] 95 % Monik Dotson SANDFILL OPERATOR.STREET INSPECTOR Work Phone: [facility] 04-16-2022 14:51-0500 Systolic blood pressure 136 mm[Hg] Monik Dotson SANDFILL OPERATOR.STREET INSPECTOR Work Phone: [facility] 03-24-2022 14:00-0500 Body height 193.04 cm [employer] Other [facility] Other 03-24-2022 14:00-0500 Body mass index (BMI) [Ratio] 23.59 kg/m2 [employer] Other [facility] Other 03-24-2022 14:00-0500 Body temperature 97.7 [degF] [employer] Other [facility] Other 03-24-2022 14:00-0500 Body weight 87.91 kg Cristobal Butts Other [facility] Other 03-24-2022 14:00-0500 Diastolic blood pressure 70 mm[Hg] Cristobal Butts Other [facility] Other 03-24-2022 14:00-0500 Respiratory rate 18 /min Cristobal Butts Other [facility] Other 03-24-2022 14:00-0500 SaO2% (BldA) [Mass fraction] 98 % Cristobal Butts Other [facility] Other 03-24-2022 14:00-0500 Systolic blood pressure 139 mm[Hg] Cristobal Butts Other [facility] Other 03-18-2022 14:37-0500 Body temperature 97.5 [degF] [facility] Work Phone: [facility] 03-18-2022 14:37-0500 Diastolic blood pressure 92 mm[Hg] [facility] Work Phone: [facility] 03-18-2022 14:37-0500 Heart rate 60 /min [facility] [place] Work Phone: [facility] 03-18-2022 14:37-0500 Respiratory rate 18 /min [facility] [place] Work Phone: [facility] 03-18-2022 14:37-0500 SaO2% (BldA) [Mass fraction] 97 % [facility] [place] Work Phone: [facility] 03-18-2022 14:37-0500 Systolic blood pressure 152 mm[Hg] [facility] [place] Work Phone: [facility] 02-04-2022 14:05-0500 Body temperature 97.81 [degF] [facility] Work Phone: [facility] 02-04-2022 14:05-0500 Diastolic blood pressure 66 mm[Hg] [facility] Work Phone: [facility] 02-04-2022 14:05-0500 Heart rate 66 /min [facility] [place] Work Phone: [facility] 02-04-2022 14:05-0500 Respiratory rate 18 /min [facility] [place] Work Phone: [facility] 02-04-2022 14:05-0500 SaO2% (BldA) [Mass fraction] 99 % [facility] [place] Work Phone: [facility] 02-04-2022 14:05-0500 Systolic blood pressure 141 mm[Hg] [facility] Work Phone: [facility] 01-14-2022 14:22-0400 Body height 193 cm Monik Dotson APRN.STREET INSPECTOR Work Phone: [facility] 01-14-2022 14:22-0400 Body temperature 97.59 [degF] Monik Dotson APRN.STREET INSPECTOR Work Phone: 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 01-14-2022 14:22-0400 Diastolic blood pressure 58 mm[Hg] Monik Dotson APRN.STREET INSPECTOR Work Phone: [facility] 01-14-2022 14:22-0400 Heart rate 57 /min Monik Dotson APRN.STREET INSPECTOR Work Phone: [facility] 01-14-2022 14:22-0400 Respiratory rate 16 /min Monik Dotson APRN.STREET INSPECTOR Work Phone: [facility] 01-14-2022 14:22-0400 SaO2% (BldA) [Mass fraction] 97 % Monik Dotson APRN.STREET INSPECTOR Work Phone: [facility] 01-14-2022 14:22-0400 Systolic blood pressure 130 mm[Hg] Monik Dotson APRN.STREET INSPECTOR Work Phone: [facility] 12-30-2021 11:00-0400 Body height 193.04 cm [employer] Other [employer] [facility] [employer] Other 12-30-2021 11:00-0400 Body mass index (BMI) [Ratio] 23.73 kg/m2 [employer] Other [facility] Other 12-30-2021 11:00-0400 Body weight 88.45 kg Ford Sam Other [facility] Other 12-17-2021 14:08-0400 Body height 193 cm Conrad Rojas MD Work Phone: [facility] 12-17-2021 14:08-0400 Body temperature 97.7 [degF] Conrad Rojas MD Work Phone: [facility] 12-17-2021 14:08-0400 Body weight 87.82 kg Conrad Rojas MD Work Phone: [facility] 12-17-2021 14:08-0400 Diastolic blood pressure 65 mm[Hg] Conrad Rojas MD Work Phone: [facility] 12-17-2021 14:08-0400 Heart rate 56 /min Conrad Rojas MD Work Phone: [facility] 12-17-2021 14:08-0400 Respiratory rate 16 /min Conrad Rojas MD Work Phone: [facility] 12-17-2021 14:08-0400 SaO2% (BldA) [Mass fraction] 98 % Conrad Rojas MD Work Phone: [facility] 12-17-2021 14:08-0400 Systolic blood pressure 132 mm[Hg] Conrad Rojas MD Work Phone: [facility] 12-09-2021 14:00-0400 Body height 193.04 cm Cristobal Butts Other [facility] Other 12-09-2021 14:00-0400 Body mass index (BMI) [Ratio] 24.17 kg/m2 Cristobal Penas Other [facility] Other 12-09-2021 14:00-0400 Body weight 90.08 kg Cristobal Penas Other [facility] Other 12-09-2021 14:00-0400 Diastolic blood pressure 68 mm[Hg] Cristobal Penas Other [facility] Other 12-09-2021 14:00-0400 Respiratory rate 18 /min Cristobal Penas Other [facility] Other 12-09-2021 14:00-0400 SaO2% (BldA) [Mass fraction] 96 % Cristobal Penas Other [facility] Other 12-09-2021 14:00-0400 Systolic blood pressure 137 mm[Hg] Cristobal Penas Other [facility] Other 12-03-2021 13:40-0400 Body height 193 cm Monik Dotson APRN.STREET INSPECTOR Work Phone: [facility] 12-03-2021 13:40-0400 Body temperature 97.59 [degF] Monik Dotson APRN.CNP Work Phone: [facility] 12-03-2021 13:40-0400 Body weight 89.63 kg Monik Dotson APRN.STREET INSPECTOR Work Phone: [facility] 12-03-2021 13:40-0400 Diastolic blood pressure 69 mm[Hg] Monik Dotson APRN.STREET INSPECTOR Work Phone: [facility] 12-03-2021 13:40-0400 Heart rate 60 /min Monik Dotson APRN.STREET INSPECTOR Work Phone: [facility] 12-03-2021 13:40-0400 Respiratory rate 16 /min Monik Dotson APRN.STREET INSPECTOR Work Phone: [facility] 12-03-2021 13:40-0400 SaO2% (BldA) [Mass fraction] 98 % Monik Dotson APRN.STREET INSPECTOR Work Phone: [facility] 12-03-2021 13:40-0400 Systolic blood pressure 142 mm[Hg] Monik Dotson APRN.STREET INSPECTOR Work Phone: [facility] 11-19-2021 13:55-0400 Body temperature 98.1 [degF] [facility] [place] Work Phone: [facility] 11-19-2021 13:55-0400 Diastolic blood pressure 63 mm[Hg] [facility] [place] Work Phone: [facility] 11-19-2021 13:55-0400 Heart rate 59 /min [facility] Work Phone: [facility] 11-19-2021 13:55-0400 Respiratory rate 18 /min [facility] [place] Work Phone: [facility] 11-19-2021 13:55-0400 SaO2% (BldA) [Mass fraction] 97 % [facility] Work Phone: [facility] 11-19-2021 13:55-0400 Systolic blood pressure 138 mm[Hg] [facility] [place] Work Phone: [facility] 11-17-2021 14:23-0400 Body temperature 97.9 [degF] MD Douglas Juárez Work Phone: [facility] 11-17-2021 14:23-0400 Diastolic blood pressure 66 mm[Hg] MD Douglas Juárez Work Phone: [facility] 11-17-2021 14:23-0400 Heart rate 51 /min MD Douglas Juárez Work Phone: [facility] 11-17-2021 14:23-0400 Respiratory rate 18 /min MD Douglas Juárez Work Phone: [facility] 11-17-2021 14:23-0400 SaO2% (BldA) [Mass fraction] 97 % MD Douglas Juárez Work Phone: [facility] 11-17-2021 14:23-0400 Systolic blood pressure 132 mm[Hg] MD Douglas Juárez Work Phone: [facility] 10-22-2021 13:52-0400 Body temperature 98.01 [degF] [facility] [place] Work Phone: [facility] 10-22-2021 13:52-0400 Diastolic blood pressure 60 mm[Hg] [facility] [place] Work Phone: [facility] 10-22-2021 13:52-0400 Heart rate 65 /min [facility] [place] Work Phone: [facility] 10-22-2021 13:52-0400 Respiratory rate 18 /min [facility] [place] Work Phone: [facility] 10-22-2021 13:52-0400 Systolic blood pressure 140 mm[Hg] [facility] [place] Work Phone: [facility] 10-02-2021 15:50-0400 Body height 193 cm Conrad Rojas MD Work Phone: [facility] 10-02-2021 15:50-0400 Body temperature 97.5 [degF] Conrad Rojas MD Work Phone: [facility] 10-02-2021 15:50-0400 Body weight 91.63 kg Conrad Rojas MD Work Phone: [facility] 10-02-2021 15:50-0400 Diastolic blood pressure 58 mm[Hg] Conrad Rojas MD Work Phone: [facility] 10-02-2021 15:50-0400 Heart rate 61 /min Conrad Rojas MD Work Phone: [facility] 10-02-2021 15:50-0400 Respiratory rate 18 /min Conrad Rojas MD Work Phone: [facility] 10-02-2021 15:50-0400 SaO2% (BldA) [Mass fraction] 97 % Conrad Rojas MD Work Phone: [facility] 10-02-2021 15:50-0400 Systolic blood pressure 138 mm[Hg] Conrad Rojas MD Work Phone: [facility] 09-24-2021 14:40-0400 Body height 193.04 cm Ceciliomaryuri [employer] Other [facility] Other 09-24-2021 14:40-0400 Body mass index (BMI) [Ratio] 24.54 kg/m2 [employer] Other [facility] Other 09-24-2021 14:40-0400 Body temperature 96.9 [degF] Ceciliomaryuri Danal d/b/a [employer] Other [facility] Other 09-24-2021 14:40-0400 Body weight 91.45 kg Cristobal Danal d/b/a [employer] Other [facility] Other 09-24-2021 14:40-0400 Diastolic blood pressure 64 mm[Hg] [employer] Danal d[employer] Other [facility] Other 09-24-2021 14:40-0400 Respiratory rate 18 /min Aziz Bakhous Other [facility] Other 09-24-2021 14:40-0400 SaO2% (BldA) [Mass fraction] 98 % Aziz Bakhous Other [facility] Other 09-24-2021 14:40-0400 Systolic blood pressure 124 mm[Hg] Aziz Bakhous Other [facility] Other 07-15-2021 12:40-0400 Body height 193.04 cm Aziz Bakhous Other [facility] Other 07-15-2021 12:40-0400 Body mass index (BMI) [Ratio] 24.93 kg/m2 Aziz Bakhous Other [facility] Other 07-15-2021 12:40-0400 Body temperature 96.3 [degF] Aziz Bakhous Other [facility] Other 07-15-2021 12:40-0400 Body weight 92.9 kg Aziz Bakhous Other [facility] Other 07-15-2021 12:40-0400 Diastolic blood pressure 64 mm[Hg] Aziz Bakhous Other [facility] Other 07-15-2021 12:40-0400 Respiratory rate 18 /min Aziz Bakhous Other [facility] Other 07-15-2021 12:40-0400 SaO2% (BldA) [Mass fraction] 98 % Aziz Bakhous Other [facility] Other 07-15-2021 12:40-0400 Systolic blood pressure 121 mm[Hg] Aziz Keshias Other [facility] Other 06-03-2021 16:40-0400 Body height 193.04 cm Azmaryuri Penas Other [facility] Other 06-03-2021 16:40-0400 Body mass index (BMI) [Ratio] 23.86 kg/m2 Cristobal Penas Other [facility] Other 06-03-2021 16:40-0400 Body temperature 96.7 [degF] Cristobal Penas Other [facility] Other 06-03-2021 16:40-0400 Body weight 88.91 kg Cristobal Penas Other [facility] Other 06-03-2021 16:40-0400 Diastolic blood pressure 67 mm[Hg] Cristobal Penas Other [facility] Other 06-03-2021 16:40-0400 Respiratory rate 18 /min Cristobal Penas Other [facility] Other 06-03-2021 16:40-0400 SaO2% (BldA) [Mass fraction] 98 % Cristobal Mauricehous Other [facility] Other 06-03-2021 16:40-0400 Systolic blood pressure 116 mm[Hg] Azmaryuri Bakhous Other [facility] Other Encounters Encounter Date Encounter Type Care Provider Facility Start: 10-31-2024 ambulatory [facility] Start: 10-31-2024 Encounter for other preprocedural examination [facility] Start: 10-19-2024 End: 10-19-2024 ambulatory [facility] Start: 10-09-2024 End: 10-09-2024 Telephone encounter Leann Corado DPM Work Phone: [facility] Comment on above: Advice Only (Keeping DM Shoes ) Start: 10-04-2024 End: 10-04-2024 ambulatory [facility] Start: 09-25-2024 End: 09-25-2024 Bamboo MESoftheet Leann Corado DPM Work Phone: [facility] Start: 09-25-2024 End: 09-25-2024 TC3 Healthheet Leann Corado DPM Work Phone: [facility] Start: 09-25-2024 End: 09-25-2024 Patient encounter procedure Leann Corado DPM Work Phone: [facility] Comment on above: Type II diabetes lalito litus with neurological manifestations (HCC) (Primary Dx); Peripheral vascular disease, unspecified; Status post amputation of foot, right (HCC) Start: 09-25-2024 End: 09-25-2024 ambulatory LEANN CORADO Not Available Start: 09-06-2024 End: 09-06-2024 ambulatory EDDY LARSEN Not Available Start: 09-06-2024 End: 09-06-2024 Patient encounter procedure Eddy Larsen DPM Work Phone: [facility] Comment on above: Status post amputati on of foot, right (HCC) (Primary Dx); Type II diabetes mellitus with neurological manifestations (HCC); Onychomycosis; Corns and callosities Start: 09-06-2024 End: 09-06-2024 Bamboo flowsheet Eddy Larsen DPM Work Phone: [facility] Start: 09-06-2024 End: 09-06-2024 Bamboo flowsheet Eddy Larsen DPM Work Phone: [facility] Start: 08-30-2024 End: 08-30-2024 ambulatory JORDENIesha VIVARTRENT [facility] Start: 08-30-2024 ambulatory MULUGETAJENIFFER KOENIGV [facility] Start: 08-10-2024 End: 08-10-2024 ambulatory [facility] Work Phone: Start: 08-10-2024 End: 08-10-2024 Patient encounter procedure [facility] Work Phone: Start: 08-02-2024 End: 08-02-2024 Postop follow up visit related to original px Leann Corado DPM Work Phone: [facility] Comment on above: Status post amputati on of foot, right (CMS/HCC) (Primary Dx); 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/HCC); Peripheral vascular disease, unspecified (CMS/HCC) Start: 08-02-2024 End: 08-02-2024 ambulatory LEANN CORADO Not Available Start: 08-02-2024 End: 08-02-2024 Bamboo flowsheet Leann Corado DPM Work Phone: [facility] Start: 08-02-2024 End: 08-02-2024 Bamboo flowspaul Corado DPM Work Phone: [facility] Start: 07-18-2024 End: 07-18-2024 Bamboo flowspaul Corado DPM Work Phone: [facility] Start: 07-18-2024 End: 07-18-2024 Bamboo flowsheet Leann Corado DPM Work Phone: [facility] Start: 07-18-2024 End: 07-18-2024 Office outpatient new 30 minutes Leann Corado DPM Work Phone: [facility] Comment on above: Peripheral vascular disease, unspecified (CMS/HCC) (Primary Dx); Corns and callosities; 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/HCC); Status post amputation of foot, right (CMS/HCC) Start: 07-18-2024 End: 07-18-2024 ambulatory LEANN CORADO Not Available Start: 06-21-2024 End: 06-21-2024 ambulatory [facility] Start: 06-12-2024 Non-patient / Non-visit [facility] Work Phone: Start: 06-06-2024 End: 06-06-2024 ambulatory EDDY LARSEN Not Available Start: 03-28-2024 End: 03-28-2024 ambulatory EDDY LARSEN Not Available Start: 03-28-2024 End: 03-28-2024 Patient encounter procedure Eddy Larsen DPM Work Phone: [facility] Comment on above: Onychomycosis (Prima ry Dx); Corns and callosities; 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/HCC); Status post amputation of foot, right (CMS/HCC) Start: 03-28-2024 End: 03-28-2024 Bamboo flowsheet Eddy Larsen DPM Work Phone: [facility] Start: 03-28-2024 End: 03-28-2024 Bamboo flowsheet Eddy Larsen DPM Work Phone: [facility] Start: 12-22-2023 End: 12-22-2023 ambulatory [facility] Start: 12-15-2023 End: 12-15-2023 Patient encounter procedure Eddy Larsen DPM Work Phone: [facility] Comment on above: Onychomycosis (Prima ry Dx); Corns and callosities; 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/HCC); Peripheral vascular disease, unspecified (CMS/HCC) Start: 12-15-2023 End: 12-15-2023 ambulatory EDDY LARSEN Not Available Start: 12-15-2023 End: 12-15-2023 Bamboo flowsheet Eddy Larsen DPM Work Phone: [facility] Start: 12-15-2023 End: 12-15-2023 Bamboo flowsheet Eddy Larsen DPM Work Phone: [facility] Start: 09-16-2023 End: 09-16-2023 ambulatory Ashutosh BULL Facility:[facility] [place] Start: 09-16-2023 End: 09-16-2023 Patient encounter procedure Ashutosh BULL [facility] [place] Start: 09-10-2023 ambulatory Ashutosh BULL Facility:[facility] Start: 08-31-2023 ambulatory Ashutosh BULL Facility:[facility] Start: 08-06-2022 End: 08-06-2022 ambulatory Douglas Juárez Facility:[facility] Start: 07-22-2022 End: 07-22-2022 ambulatory Eddy Larsen Facility:[facility] Start: 07-22-2022 End: 07-22-2022 ambulatory MD Douglas Juárez Work Phone: [facility] Work Phone: Start: 07-22-2022 End: 07-22-2022 Departed Referred MD Douglas Juárez Work Phone: [facility] [place] Work Phone: Start: 07-15-2022 End: 07-16-2022 ambulatory Douglas Juárez Facility:[facility] Start: 07-15-2022 End: 07-15-2022 ambulatory MD Douglas Juárez Work Phone: [facility] Work Phone: Start: 07-15-2022 End: 07-15-2022 Discharged Recurring MD Douglas Juárez Work Phone: [facility]-Infusion Therapy - O/P Work Phone: Start: 07-09-2022 End: 07-10-2022 ambulatory PAOLA ZHANG Facility: Start: 06-18-2022 End: 06-18-2022 ambulatory Ashutosh Thomas Other [facility] [employer] Other Start: 06-18-2022 Telephone encounter Ashutosh Thomas FP [facility] Infectious Disease Start: 06-11-2022 End: 06-15-2022 Evaluation and management of inpatient Caleb Baconklely Facility:[facility] Start: 06-11-2022 End: 06-15-2022 Evaluation and management of inpatient MD Douglas Juárez Work Phone: [facility] [place] [facility] Work Phone: Start: 06-10-2022 End: 06-10-2022 ambulatory Eddy Larsen Facility:[facility] Start: 06-10-2022 End: 06-10-2022 ambulatory MD Douglas Juárez Work Phone: [facility] Work Phone: Start: 06-10-2022 End: 06-10-2022 Departed Referred MD Douglas Juárez Work Phone: [facility] [place] Work Phone: Start: 06-08-2022 Telephone encounter Krissy Mirza RN Hematology/Oncology Comment on above: Patient Update; Appo intment Start: 06-08-2022 Registered Recurring MD Nicholas Juárez Work Phone: [facility]-Infusion Therapy - [facility]/P Work Phone: Start: 05-28-2022 End: 05-28-2022 ambulatory Sohan Kellogg Facility:[facility] Start: 05-28-2022 End: 05-28-2022 Admission to same day surgery center MD Douglas Juárez Work Phone: [facility]-Surgery Center [place] Start: 05-28-2022 End: 05-28-2022 ambulatory MD Douglas Juárez Work Phone: [facility] Work Phone: Start: 05-27-2022 Registered Recurring MD Nicholas Juárez Work Phone: [facility]-Infusion Therapy - [facility] Work Phone: Start: 05-25-2022 End: 05-25-2022 ambulatory Ashutosh Thomas Other [place] [facility] Other Start: 05-25-2022 Telephone encounter Ashutosh Thomas G Infectious Disease Start: 05-20-2022 End: 05-25-2022 Evaluation and management of inpatient Scotty Criss Facility:[facility] Start: 05-20-2022 End: 05-25-2022 Evaluation and management of inpatient MD Douglas Juárez Work Phone: [facility] [place] [facility] Work Phone: Start: 05-19-2022 End: 05-19-2022 ambulatory Douglas Juárez Facility:[facility] Start: 05-19-2022 End: 05-19-2022 ambulatory MD Douglas Juárez Work Phone: [facility] Work Phone: Start: 05-19-2022 End: 05-19-2022 Departed Referred MD Douglas Juárez Work Phone: [facility] [place] Work Phone: Start: 05-05-2022 End: 05-08-2022 Evaluation and management of inpatient MD Douglas Juárez Work Phone: [facility] Work Phone: Start: 05-05-2022 End: 05-06-2022 ambulatory BROCK IVERSON Facility: Start: 05-04-2022 End: 05-05-2022 ambulatory ALEN CEDILLO Facility: Start: 04-29-2022 End: 04-30-2022 [facility] [employer] Start: 04-29-2022 [facility] Start: 04-16-2022 End: 04-16-2022 ambulatory [facility] Work Phone: Hematology/Oncology Comment on above: Anemia due to stage 3b chronic kidney disease (HCC) (Primary Dx) Anemia due to stage 3b chronic kidney disease (HCC) (Primary Dx); Hypothyroidism, unspecified type Start: 04-16-2022 End: 04-16-2022 Patient encounter procedure Monik Dotson APRN.CNP Work Phone: [facility] Start: 03-24-2022 End: 03-24-2022 [facility] [place] [employer] Other Start: 03-24-2022 Office outpatient vi sit 25 minutes [facility] Start: 03-24-2022 [facility] Start: 03-18-2022 End: 03-19-2022 ambulatory [facility] Work Phone: Hematology/Oncology Comment on above: Anemia due to stage 3b chronic kidney disease (HCC) (Primary Dx) Start: 03-17-2022 End: 03-18-2022 ambulatory CRISTOBAL PENA Facility: Start: 02-18-2022 End: 02-18-2022 ambulatory [facility] Work Phone: Hematology/Oncology Comment on above: Anemia due to stage 3b chronic kidney disease (HCC) (Primary Dx) Start: 02-04-2022 End: 02-05-2022 ambulatory JOSH SIMONU Facility:[facility] Start: 02-04-2022 End: 02-04-2022 ambulatory [facility] Work Phone: Hematology/Oncology Comment on above: Anemia due to stage 3b chronic kidney disease (HCC) (Primary Dx) Start: 01-14-2022 End: 01-14-2022 ambulatory MONIK DOTSON Facility:[facility] Start: 01-14-2022 End: 01-14-2022 ambulatory Monik Dotson APRN.STREET INSPECTOR Work Phone: Hematology/Oncology Comment on above: Anemia due to stage 3b chronic kidney disease (HCC) (Primary Dx); Hypothyroidism, unspecified type Start: 01-14-2022 End: 01-14-2022 Patient encounter procedure Monik Dotson APRN.STREET INSPECTOR Work Phone: [facility] Start: 12-30-2021 End: 12-30-2021 ambulatory Ford Sam Other [facility] Other Start: 12-30-2021 FQHC visit new patient Ford Perezsameer [facility] Start: 12-17-2021 End: 12-18-2021 ambulatory CONRAD ROJAS Facility:[facility] Start: 12-17-2021 End: 12-17-2021 ambulatory Conrad Rojas MD Work Phone: Hematology/Oncology Comment on above: Anemia due to stage 4 chronic kidney disease (HCC) (Primary Dx) Start: 12-17-2021 End: 12-17-2021 Patient encounter procedure Conrad Rojas MD Work Phone: [facility] Start: 12-09-2021 End: 12-09-2021 ambulatory Cristobal Butts Other [facility] Other Start: 12-09-2021 Office outpatient vi sit 25 minutes Cristobal Butts [facility] Start: 12-04-2021 End: 12-05-[address] DOCTOR MILES Facility: Start: 12-04-2021 Telephone encounter Monik armstrong APRN.STREET INSPECTOR Work Phone: Hematology/Oncology Comment on above: Infusions Start: 12-03-2021 End: 12-03-2021 ambulatory Monik Dotson APRN.STREET INSPECTOR Work Phone: Hematology/Oncology Comment on above: Anemia due to stage 4 chronic kidney disease (HCC) (Primary Dx) Start: 12-03-2021 End: 12-03-2021 Patient encounter procedure Monik Dotson APRN.STREET INSPECTOR Work Phone: [facility] Start: 11-19-2021 End: 11-20-2021 ambulatory [facility] Work Phone: Hematology/Oncology Comment on above: Anemia due to stage 3b chronic kidney disease (HCC) (Primary Dx) Start: 11-17-2021 End: 11-17-2021 Discharged Recurring MD Douglas Juárez Work Phone: [facility]Infusion Therapy - O/[facility] Start: 11-05-2021 End: 11-05-2021 ambulatory CONRAD ABHYWING Facility:[facility] Start: 10-22-2021 End: 10-22-2021 ambulatory CONRAD ABHYANKAR Facility:[facility] Start: 10-22-2021 End: 10-22-2021 ambulatory [facility] Work Phone: Hematology/Oncology Comment on above: Anemia due to stage 3b chronic kidney disease (HCC) (Primary Dx) Start: 10-16-2021 End: 10-17-2021 ambulatory CONRAD ABHYWING Facility:[facility] Start: 10-16-2021 End: 10-17-2021 ambulatory Conrad Rojas [...] 09-24-2021 End: 09-24-2021 ambulatory Aziz Bakhous Other [facility] Other Start: 09-24-2021 Office outpatient vi sit 25 minutes Aziz Bakhous [facility] Start: 09-19-2021 End: 09-20-[address] DOCTOR MILES Facility:[facility] Start: 07-15-2021 End: 07-15-2021 ambulatory Aziz Bakhous Other [facility] Other Start: 07-15-2021 Office outpatient vi sit 25 minutes Aziz Bakhous [facility] Start: 06-03-2021 End: 06-03-2021 ambulatory Aziz Bakhous Other [facility] Other Start: 06-03-2021 Office outpatient vi sit 25 minutes Aziz Bakhous [facility] Procedures Date Procedure Procedure Detail Performing Clinician Start: 06-14-2022 Antibody screen Tino Larsen Comment on above: Result Comment: PERF ORMED BY: [facility] [address] [place] [address] PATHOLOGIST PRODUCT MARKETER SESAR VAUGHN M.D. Start: 06-14-2022 Screening for [...] 1 Result Comment: PERF ORMED BY: [facility] [address] [place] [address] PATHOLOGIST PRODUCT MARKETER SESAR VAUGHN M.D. Start: 06-11-2022 X-ray of [...] 1 Result Comment: PERF ORMED BY: [facility] [address] [place] [address] PATHOLOGIST PRODUCT MARKETER SESAR VAUGHN M.D. Start: 05-20-2022 MRI of right foot MD Stover isaiah Juárez Work Phone: Start: 05-20-2022 Blood culture for ba cteria, including anaerobic screen MD Douglas Juárez Work Phone: Start: 05-20-2022 CT of chest without contrast MD Pelayo Brysonshannon Work Phone: Start: 05-20-2022 End: 05-20-2022 X-ray of right foot MD Douglas Juárez Work Phone: Start: 05-19-2022 Aerobic microbial culture MD Douglas Juárez Work Phone: Start: 05-07-2022 Aerobic microbial culture MD Douglas Juárez Work Phone: Start: 05-07-2022 Anaerobic microbial culture MD Douglas Juárez Work Phone: Start: 05-07-2022 Investigation of tra nsfusion reaction MD Pelayo Brysonshannon Work Phone: Start: 05-07-2022 Amputation of toe MD Stover isaiah Juárez Work Phone: Start: 05-06-2022 Pulse volume recorde r pneumoplethysmography MD Pelayo Brysonshannon Work Phone: Start: 05-05-2022 MRI of right foot MD Rosasbebeto Juárez Work Phone: Start: 05-05-2022 Blood culture for ba cteria, including anaerobic screen MD Pelayo Brysonshannon Work Phone: Start: 05-05-2022 X-ray of right foot MD Douglas Juárez Work Phone: Start: 12-03-2021 Adult depression scr eening assessment Monik Dotson SANDFILL OPERATOR.STREET INSPECTOR Work Phone: Start: 05-18-2018 Colonoscopy Ashutosh VILLALOBOS Amputation of toe Ashutosh VILLALOBOS Comment on above: 4th and 5th digits r ight foot H/O: surgery Recent surgical procedure on lower extremity MD Douglas Juárez Work Phone: Comment on above: Problem List clean-u p per request of Phys. EHR Cmte Insertion of periton eal dialysis catheter Ashutosh BULL Plan of Treatment Date Care Activity Detail Author Start: 04-16-2025 DIABETES SCREEN DIABETES SCREEN [facility] Start: 03-18-2025 DIABETES SCREEN DIABETES SCREEN [facility] Start: 02-18-2025 DIABETES SCREEN [facility] Start: 02-04-2025 DIABETES SCREEN [facility]CREEN [facility] Start: 01-14-2025 DIABETES SCREEN [facility]CREEN [facility] Start: 12-17-2024 DIABETES SCREEN DIABETES SCREEN [facility] Start: 12-11-2024 End: 12-11-2024 Patient encounter procedure 12/11/2024 3:15 PM EDT Procedure Visit [facility] [address] [place] [phone] Eddy Larsen DPM [address] [place] [address] [facility] Start: 12-03-2024 DIABETES SCREEN DI[facility]ETES SCREEN [facility] Start: 11-20-2024 Influenza vaccination [facility] Start: 11-19-2024 DIABETES SCREEN DI[facility]ETES SCREEN [facility] Start: 10-22-2024 DIABETES SCREEN [facility]ET[facility]CREEN [facility] Start: 10-16-2024 End: 10-16-2024 Patient encounter procedure 10/16/2024 2:45 PM EDT Office Visit [facility] [address] [place] [address] Leann Corado DPM [address] [place] [address] [facility] Start: 10-02-2024 DIABETES SCREEN DI[facility]ETES SCREEN [facility] Start: 09-25-2024 End: 09-25-2024 Patient encounter procedure 09/25/2024 1:15 PM EDT Office Visit [facility] [address] [place] [phone] Leann Corado DPM [address] [place], [place] [id number] Arrived [facility] Comment on above: Arrived Start: 09-18-2024 End: 09-18-2024 Patient encounter procedure 09/18/2024 4:00 PM EDT Office Visit [facility] [address] [place] [phone] Leann Corado DPM [address] [place], [place] [phone] [facility] Start: 09-06-2024 End: 09-06-2024 Patient encounter procedure 09/06/2024 2:30 PM EDT Procedure Visit [facility] [address] [place] [phone] Eddy Larsen DPM [address] [place] [address] [facility] Start: 08-10-2024 Patient referral [facility] Work Phone: Start: 08-02-2024 End: 08-02-2024 Patient encounter procedure 08/02/2024 3:15 PM EDT Office Visit [facility] [address] [place] [phone] Leann Corado DPM [address] [place] [address] Arrived [facility] Comment on above: Arrived Start: 07-18-2024 End: 07-18-2024 Patient encounter procedure 07/18/2024 1:45 PM EDT Office Visit [facility] [address] [place] [phone] Leann Corado DPM [address] [place] [address] Corns and callosities; 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/HCC); Status post amputation of foot, right (CMS/HCC) [facility] Comment on above: Corns and callositie s; 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/HCC); Status post amputation of foot, right (CMS/HCC) Start: 06-06-2024 End: 06-06-2024 Patient encounter procedure 06/06/2024 3:15 PM EDT Procedure Visit [facility] [address] [place] [phone] Eddy Larsen, DPM [address] [place] [address] [facility] Start: 03-28-2024 End: 03-28-2024 Patient encounter procedure 03/28/2024 2:15 PM EST Procedure Visit [facility] [address] [place] [phone] Eddy Larsen, DPM [address] [place] [address] [facility] Start: 12-15-2023 End: 12-15-2023 Patient encounter procedure 12/15/2023 3:45 PM EDT Procedure Visit [facility] [address] [place] [phone] Eddy Larsen, DPM [address] [place] [address] Arrived [facility] Comment on above: Arrived Start: 11-21-2023 Influenza vaccination Influenza Vacc ine (#1) [facility] Start: 04-16-2023 HEMOGLOBIN/HEMATOCRIT HEMOGLOBIN/HEM ATOCRIT [facility] Start: 04-16-2023 SERUM CREATININE SERUM CREATININE [facility] Start: 03-18-2023 [facility] Start: 03-18-2023 SERUM CREATININE [facility]INE [facility] [facility] Start: 02-18-2023 [facility]: 02-18-2023 SERUM CREATININE SERUM CREATININE [facility] Start: 02-04-2023 [facility]: 02-04-2023 SERUM CREATININE SERUM CREATININE [facility] Start: 01-14-2023 HEMOGLOBIN[facility]: 01-14-2023 SERUM CREATININE SERUM CREATININE [facility] Start: 12-17-2022 H[facility]OGLOB[facility]: 12-17-2022 SERUM CREATININE SERUM CREATININE [facility] Start: 12-03-2022 Adult depression screening assessment DEPRESSION SCREENING [facility] Start: 12-03-2022 HEMOGLOBIN[facility]: 12-03-2022 SERUM CREATININE SERUM CREATININE [facility] Start: 11-19-2022 HEMOGLOBIN[facility] Start: 11-19-2022 SERUM CREATININE SERUM CREATININE [facility] Start: 10-22-2022 HEMOGLOBIN[facility] Start: 10-22-2022 SERUM CREATININE SERUM CREATININE [facility] Start: 10-02-2022 HEMOGLOBIN/HEMATOCRIT HEMOGLOBIN/HEM [facility] Start: 10-02-2022 SERUM CREATININE SERUM CREATININE [facility] Start: 07-22-2022 Superficial Wound Culture Superficial Wound Culture [facility] Start: 06-15-2022 [facility] Start: 06-13-2022 [facility] Start: 06-12-2022 Administration of prophylactic treatment [facility] Start: 06-12-2022 Referral to paintings conservator [facility] Start: 06-12-2022 Comprehensive metabo lic 2000 panel - Serum or Plasma [facility] Start: 06-12-2022 Erythrocyte sedimentation rate by Photometric method [facility] Start: 06-12-2022 [facility] Start: 06-11-2022 Hospital admission [facility] Start: 06-11-2022 Referral to infectio us diseases physician [facility] Start: 06-11-2022 Referral to graphic arts instructor [facility] Start: 06-11-2022 [facility] Start: 06-11-2022 Bacteria identified in Blood by Culture [facility] Start: 06-10-2022 Aerobic microbial culture Superficial Wound Culture [facility] Start: 06-10-2022 Superficial Wound Culture Superficial Wound Culture [facility] Start: 05-28-2022 End: 05-28-2022 [facility] Start: 05-25-2022 Renal function 1999 panel - Serum or Plasma [facility] Start: 05-25-2022 [facility] Start: 05-24-2022 Renal function 1999 panel - Serum or Plasma [facility] Start: 05-24-2022 [facility] Start: 05-23-2022 Renal function 1999 panel - Serum or Plasma [facility] Start: 05-23-2022 [facility] Start: 05-22-2022 Administration of prophylactic treatment [facility] Start: 05-22-2022 Referral to Computer Training Specialist [facility] Start: 05-22-2022 Renal function 1999 panel - Serum or Plasma [facility] Start: 05-22-2022 Vancomycin [Mass/vol ume] in Serum or Plasma [facility] Start: 05-22-2022 End: 05-22-2022 [facility] Start: 05-21-2022 Anaerobic microbial culture Anaerobic Culture [facility] Start: 05-21-2022 Renal function 1999 panel - Serum or Plasma [facility] Start: 05-21-2022 End: 05-21-2022 [facility] Start: 05-20-2022 End: 05-20-2022 [facility] Start: 05-20-2022 Bacteria identified in Blood by Culture Blood Culture [facility] Start: 05-20-2022 Detachment at Right 4th Toe, Complete, Open Approach Detachment at Right 4th Toe, Complete, Open Approach [facility] Start: 05-20-2022 Drainage of Right Fo ot, Open Approach Drainage of Right Foot, Open Approach [facility] Start: 05-20-2022 Excision of Right Fo ot Subcutaneous Tissue and Fascia, Open Approach Excision of Right Foot Subcutaneous Tissue and Fascia, Open Approach [facility] Start: 05-20-2022 Insertion of Infusio n Device into Superior Vena Cava, Percutaneous Approach Insertion of Infusion Device into Superior Vena Cava, Percutaneous Approach [facility] Start: 05-20-2022 Superficial Wound Culture Superficial Wound Culture [facility] Start: 05-20-2022 Referral to infectio us diseases physician [facility] Start: 05-20-2022 Referral to graphic arts instructor [facility] Start: 05-20-2022 Referral to paintings conservator [facility] Start: 05-20-2022 Hospital admission [facility] Start: 05-19-2022 Aerobic microbial culture Superficial Wound Culture [facility] Start: 05-19-2022 Superficial Wound Culture Superficial Wound Culture [facility] Start: 05-08-2022 [facility] Start: 05-07-2022 Aerobic microbial culture Aerobic Culture [facility] Start: 05-07-2022 Anaerobic microbial culture Anaerobic Culture [facility] Start: 05-07-2022 End: 05-07-2022 [facility] Start: 05-06-2022 Referral to general surgeon [facility] Start: 05-06-2022 Referral to graphic arts instructor [facility] Start: 05-06-2022 Referral to infectio us diseases physician [facility] Start: 05-05-2022 Referral to paintings conservator [facility] Start: 05-05-2022 Hospital admission [facility] Start: 05-05-2022 [facility] Start: 05-05-2022 Bacteria identified in Blood by Culture [facility] Start: 05-05-2022 Blood culture for bacteria, including anaerobic screen Blood Culture [facility] Start: 05-05-2022 Detachment at Right Foot, Partial 5th Ray, Open Approach Detachment at Right Foot, Partial 5th Ray, Open Approach [facility] Start: 03-22-2022 DEPRESSION ASSESSMENT DEPRESSION ASS [facility] Start: 02-20-2022 End: 04-22-2022 CBC W Auto Differential panel - Blood CBC + DIFF Lab Routine Anemia due to stage 3b chronic kidney disease (HCC) Hypothyroidism, unspecified type Expected: 02/20/2022, Expires: 04/22/2022 [facility] Work Phone: Comment on above: Expected: 02/20/2022 , Expires: 04/22/2022 Start: 02-20-2022 End: 04-22-2022 Comprehensive metabolic 2000 panel - Serum or Plasma COMP METABOLIC PANEL Lab Routine Anemia due to stage 3b chronic kidney disease (HCC) Hypothyroidism, unspecified type Expected: 02/20/2022, Expires: 04/22/2022 [facility] Work Phone: Comment on above: Expected: 02/20/2022 , Expires: 04/22/2022 Start: 11-20-2021 Influenza vaccination INFLUENZA (#1) [facility] Start: 10-11-2021 COVID-19 VACCINE (4 - Booster for Pfizer series) COVID-19 VACCINE (4 - Booster for Pfizer series) [facility] Start: 08-06-2021 COVID-19 VACCINE (4 - Booster for Pfizer series) COVID-19 VACCINE (4 - Booster for Pfizer series) [facility] Start: 03-22-2021 DEPRESSION ASSESSMENT DEPRESSION ASS ESSMENT [facility] Start: 08-01-2019 PROSTATE CANCER SCREENING DISCUSSION PROSTATE CANCER SCREENING DISCUSSION [facility] Start: 2014 SHINGRIX VACCINE (1 of 2) SHINGRIX VACCINE (1 of 2) [facility] Start: 2009 COLOGUARD (FIT-DNA) COLOGUARD (FIT-D NA) [facility] Start: 2009 Colonoscopy COLONOSCOPY [facility] Start: 2009 COLORECTAL CANCER SCREENING COLORECTAL CANCER SCREENING [facility] Start: [address] COLONOGRAPHY [facility] Start: 2009 DIABETES SCREEN DIABETES SCREEN [facility] Start: 2009 FECAL OCCULT BLOOD FECAL OCCULT BLOO D [facility] Start: 2009 SIGMOIDOSCOPY SIGMOIDOSCOPY [facility] Start: 08-01-1999 LIPID SCREEN LIPID SCREEN [facility] Start: 08-01-1983 Urine microalbumin profile DTAP,TDAP,TD (1 - Tdap) [facility] Start: 1982 ANNUAL PCP TEAM MAGENTO DEVELOPER ALEXANDRA DISEASE VISIT ANNUAL PCP TEAM CHRONIC DISEASE VISIT [facility] Start: 1982 HEPATITIS C SCREENING HEPATITIS C SC ZAIRA [facility] Start: 1982 HIV SCREENING HIV SCREENING [facility] Start: 1976 Adult depression screening assessment DEPRESSION SCREENING [facility] Start: 1964 HEPATITIS B (1 of 3 - 3-dose series) HEPATITIS B (1 of 3 - 3-dose series) [facility] Start: 1964 Screening for malign ant neoplasm of colon [facility] C reactive protein [Mass/volume] in Serum or Plasma [facility] End: 10-08-2022 CBC W Auto Differential panel - Blood CBC + DIFF Lab Routine Stage 3b chronic kidney disease (HCC) Anemia due to stage 3b chronic kidney disease (HCC) Elevated serum immunoglobulin free light chains Every other week for 10 Occurrences starting 10/08/2021 until 10/08/2022 [facility] Work Phone: Comment on above: Every other week for 10 Occurrences starting 10/08/2021 until 10/08/2022 End: 10-08-2022 Comprehensive metabolic 2000 panel - Serum or Plasma COMP METABOLIC PANEL Lab Routine Stage 3b chronic kidney disease (HCC) Anemia due to stage 3b chronic kidney disease (HCC) Elevated serum immunoglobulin free light chains Every other week for 10 Occurrences starting 10/08/2021 until 10/08/2022 [facility] Work Phone: Comment on above: Every other week for 10 Occurrences starting 10/08/2021 until 10/08/2022 Patient Education [facility] Work Phone: Patient referral [facility] Work Phone: [facility] Immunizations Immunization Date Immunization Notes Care Provider Connie jaime 06-11-2021 COVID-19 original vaccine, age 12+ yr, monovalent (PFIZER-BIONTECH - PURPLE TOP) Conrad Rojas MD Work Phone: [facility] 06-11-2021 COVID-19 vaccine, ag e 12+ yr (PFIZER-BIONTECH - RINCON TOP) Conrad Rojas MD Work Phone: [facility] 06-11-2021 SARS-CoV-2 mRNA ([id number] se) vaccine Ashutosh BULL [facility] Comment on above: Result Comment: 2023: [id number] 07-29-2020 COVID-19 vaccine, ag e 12+ yr (PFIZER-BIONTECH - PURPLE TOP) Conrad Rojas MD Work Phone: [facility] 07-08-2020 COVID-19 vaccine, ag e 12+ yr (PFIZER-BIONTECH - PURPLE TOP) Conrad Rojas MD Work Phone: [facility] Payers Date Payer Category Payer Self-pay [id number] 2022 Medicaid [id number] 2022 Medicare [id number] 2022 Medicare [id number] 2020 Medicaid [employer] [id number] 2020-Present [phone] [address] [place] [address] Medicaid [id number] 2020 Medicaid [id number] [id number] 1964 Unknown [id number] 2.16.840.1.217348.3.579.2.593 1964 Unknown [id number] 2.16.840.1.119262.3.579.2.593 1964 Unknown [id number] 2.16.840.1.281509.3.579.2.593 1964 Unknown [id number] 2.16.840.1.267720.3.579.2.593 1964 Unknown [id number] 2.16.840.1.708608.3.579.2.593 1964 Unknown [id number] 2.840.1.851930.3.579.2.593 1964 Unknown [id number] 2.16.840.1.758928.3.579.2.593 1964 Unknown [id number] 2.840.1.587003.3.579.2.593 1964 Unknown [id number] 2.840.1.820847.3.579.2.593 1964 Unknown [id number] .840.1.605289.3.579.2.727 1964 Unknown [id number] 2.840.1.857708.3.579.2.125 1964 Unknown [id number] .840.1.435356.3.579.2.125 1964 Unknown [id number] 2.840.1.243307.3.579.2.125 1964 Unknown [id number] .840.1.861008.3.579.2.125 1964 Unknown [id number] 2.16840.1.587840.3.579.2.125 1964 Unknown [id number] 2.840.1.832309.3.579.2.125 1964 Unknown [id number] 2.16840.1.092944.3.579.2.1259 1959 Unknown [id number] Medicaid [id number] 2.16.840.1.185500.19 Unknown [id number] 2.16.840.1.844711.3.579.2.531 Unknown [id number] 2.16.840.1.989233.3.579.2.531 Unknown [id number] 2.16.840.1.197929.3.579.2.531 Unknown [id number] 2.16.840.1.012060.3.579.2.531 Unknown [id number] 2.16.840.1.622381.3.579.2.531 Unknown [id number] 2.16.840.1.091934.3.579.2.531 Unknown [id number] 2.16.840.1.374111.3.579.2.531 Unknown [id number] 2.16.840.1.578964.3.579.2.531 Social History Date Type Detail Facility Unknown if ever smoked [facility] Start: 12-15-2023 End: 09-25-2024 Sex Assigned At [facility] Start: 10-01-2021 End: 08-12-2022 Tobacco smoking status NDIS Never smoked tobacco [facility] Start: 10-01-2021 End: 08-12-2022 Tobacco use and exposure Smokeless tobacco non-user [facility] Start: 10-01-2021 End: 04-16-2022 Alcohol intake Ex-drinker (finding) [facility] Start: 1965 Sex Assigned At Not on file [facility] Start: 09-22-2021 End: 02-18-2022 Exposure to SARS-CoV-2 (event) Not sure [facility] Start: 1965 Sex Assigned At Male F [facility] History of tobacco use Passive smoker [facility] Start: 05-05-2022 End: 06-12-2022 Tobacco smoking status NHIS Ex-smoker (finding) [facility] Tobacco smoking status Never [facility] [place] Start: 12-15-2023 End: 09-25-2024 Alcoholic beverage intake Not Asked [facility] Start: 12-15-2023 End: 09-25-2024 History of Social function [facility] Start: 06-09-2023 Alcohol Comment caffeine intak e:1-2 cups per day soda/pop [facility] Start: 08-10-2024 Sex Male (finding) [facility] Medical Equipment Procedure Code Equipment Code Equipment Origin al Text Equipment Identifier Dates Insertion, catheter, dialysis, peritoneal, laparoscopic Peritoneal dialysis catheter, chronic [id number] FDA Start: 05-28-2022 Goals Date Patient Goal Desired Activity /State Functional Status Date Assessment Result Facility 09-16-2023 Functional Status N/A [facility] [place] 06-15-2022 Functional status Patient at Baseline [facility] Work Phone: 06-11-2022 Functional status Patient at Baseline [facility] Work Phone: 05-25-2022 Functional status Patient at Baseline [facility] Work Phone: 05-20-2022 Functional status Patient at Baseline [facility] Work Phone: 05-08-2022 Functional status Patient at Baseline [facility] Work Phone: 05-05-2022 Functional status Patient at Baseline [facility] Work Phone: Mental Status Date Assessment Result Facility 06-15-2022 Cognitive function Cognitive Sta tus Patient at Baseline [facility] Work Phone: 06-11-2022 Cognitive function Cognitive Sta tus Patient at Baseline [facility] Work Phone: 05-25-2022 Cognitive function Cognitive Sta tus Patient at Baseline [facility] Work Phone: 05-20-2022 Cognitive function Cognitive Sta tus Patient at Baseline [facility] Work Phone: 05-08-2022 Cognitive function Cognitive Sta tus Patient at Baseline [facility] Work Phone: 05-05-2022 Cognitive function Cognitive Sta tus Patient at Baseline [facility] Work Phone: Clinical Notes 06-03-2021 to 10-31-2024 Telephone Encounter - Zahira Vargas - 10/09/2024 2:44 PM EDTTelephone Encounter - Zahira Vargas - 10/09/2024 2:44 PM EDTSdaniel Corado DPM - 09/25/2024 1:15 PM EDT Note Date & Type Note Facility 10-31-2024 Note Cardiothoracic Surge ry Outpatient Consultation Note 11/01/2024 Reason For Visit Chief Complaint Patient presents with Consult Referred by Dr Sosa Referring Provider: No ref. provider found History Of Present Illness Gopal Yates is a 59 y.o. male presenting for new patient consultation for multivessel CAD. Referred by Dr. Sosa. Mr Yates's medical history is significant for the following: [...] Diagnosis Plan 1. Coronary artery disease involving [place] coronary artery of [place] heart without angina pectoris 2. Type 2 diabetes mellitus with diabetic neuropathy, without long-term current use of insulin (CMS/HCC) 3. End-stage renal disease (CMS/HCC) 4. Multiple nodules of lung Plan : -Patient seen and evaluated by Cardiothoracic Team. Dr. Otis Subramanian personally examined the patient and reviewed The Cardiac Catherization, Echocardiogram, CXR, and Other Diagnostic Testing. Findings discussed with social worker clinical and patient. Explained current disease process and [...] pain, SOB, or dizziness/lightheadedness to immediately go to the ED for further evaluation or call 911. All questions and concerns answered appropriately. Patient was agreeable to plan of care. Past Medical History He has a past medical history of Anemia in chronic kidney disease (CKD), Anxiety, CHF (congestive heart failure) ([facility]), Chronic fatigue syndrome, Chronic sinusitis, Coronary artery disease, Diabetic foot ulcers ([facility]), Diabetic neuropathy ([facility]), ED (erectile dysfunction), ESRD (end stage renal disease) ([facility]) (06/17/2022), GERD (gastroesophageal reflux disease), Heart valve disease, History of pleural effusion, History of tobacco use, Hyperlipidemia, Hypertension, Hypothyroidism, Myocardial infarction ([facility]), Osteomyelitis ([facility]), Panic attack, Pericardial effusion, Proteinuria, Pulmonary nodules, PVD (peripheral vascular disease), Secondary hyperparathyroidism of renal origin, Swelling of both lower extremities, Type 2 diabetes mellitus ([facility]), and Vitamin D deficiency. Surgical History He has a past surgical history that includes Cardiac catheterization (Right, 05/20/2021); Cardiac catheterization (02/07/2020); Toe amputation (05/07/2022); Peritoneal catheter insertion (05/28/2022); Wound debridement (Right, 09/04/2022); Abscess drainage (Left, 10/07/2022); and Colonoscopy (2016). Family History Family History[1] Social History He reports that he quit smoking about 30 years ago. His smoking use included cigarettes. He started smoking about 42 years ago. He has a [...] Cuff Size: Adult) Pulse 60 Temp 36.7 ???C (98 ???F) (Temporal) Physical Exam Physical Exam Constitutional: General: He is not in acute distress. Appearance: Normal appearance. He is not ill-appearing, toxic-appearing or diaphoretic. HENT: Mouth/Throat: Mouth: Mucous membranes are moist. Cardiovascular: Rate and Rhythm: Normal rate and regular rhythm. Heart sounds: No murmur heard. Pulmonary: Effort: Pulmonary effort is normal. Breath sounds: Normal breath sounds. Abdominal: General: There is no distension. Palpations: Abdomen i (more content not included)... [facility] 10-31-2024 Note This report has been cancelled. [facility] 10-20-2024 Note I called the pt and discussed his work up. I told him I saw that he had a cardiac cath that needed follow up. I told him that after any cardiac intervention there is at least a 6 month wait time. I said that we may make your case temporarily inactive while you complete cardiac and regain your strength. I sad that I had his CT reviewed and follow up imaging with contrast will be necessary to determine what the lesion in you kidney is. I said that work on cardiac as is your priority for your health. The letter has items needed for your work up in the future. After cardiac we can work on the CT if you want to move forward with transplant. The pt verbalized understanding. [facility] 10-19-2024 Note Patient: Gopal Damon ey Procedure Information Date/Time: 10/19/24 1230 Procedures: Coronary angiography - Renal TX - Does PD dialysis Right heart cath Location: [email or web address] HOTEL OR MOTEL MANAGER 3 / [facility] (Cath) Providers: Casimiro Sosa MD Clinical information reviewed: Allergies Meds Physical Exam Airway Mallampati: III Cardiovascular Rhythm: regular Rate: normal Dental Pulmonary Breath sounds clear to auscultation Neurological Abdominal Anesthesia Plan ASA 3 other (Moderate Sedation) Anesthetic plan and risks discussed with patient. Use of blood products discussed with patient who consented to blood products. Additional Equipment Requests [facility] 10-09-2024 Telephone encounter Note Pt likes his DM shoes and is keeping them. [facility] 10-09-2024 Miscellaneous Notes Pt likes his DM shoes and is keeping them. documented in this encounter [facility] 10-09-2024 Note Spoke with patient h e verbalized understanding and confirmed date/time of procedure. He will have lab work done 10/16/24 at [facility]. All questions were answered. Written instructions and lab orders mailed to patient. [facility] 09-25-2024 History of Present illness Narrative Images from the original note were not included. Subjective Patient ID: Gopal Yates Jr. is a 59 y.o. male who presents for Shoe poultry picker (Gopal Yates 59yo Presents for shoe poultry picker. Patient received [address] Friedman shoes and 1 pair Custom inserts. 12W. BS 125 A[address]C 6.7Dr. Hoy 06/2024). HPI Patient returns for fitting of Dr. Friedman therapeutic footwear and custom molded multi-laminate, multi-density accommodative orthoses x 1 pair. Offers no specific concerns or complaints. Medications Current Outpatient Medications: aspirin 81 MG EC tablet, Take 81 mg by mouth Daily, Disp: , Rfl: carvedilol (Coreg) 3.125 MG tablet, Take 3.125 mg by mouth in the morning and 3.125 mg in the evening. Take with meals., Disp: , Rfl: hydrALAZINE (Apresoline) 50 MG tablet, Take 50 mg by mouth in the morning and 50 mg before bedtime., Disp: , Rfl: Lantus SoloStar 100 UNIT/ML pen, INJECT 16 UNITS SUBCUTANEOUSLY DAILY, Disp: , Rfl: magnesium 30 MG tablet, Take 30 mg by mouth in the morning and 30 mg before bedtime., Disp: , Rfl: omeprazole OTC (PriLOSEC OTC) 20 MG EC tablet, Take 20 mg by mouth in the morning. Take before meals. Do not crush, chew, or split., Disp: , Rfl: potassium chloride CR (Klor-Con M10) 10 MEQ ER tablet, Take 10 mEq by mouth Daily Do not crush or chew., Disp: , Rfl: pravastatin (Pravachol) 20 MG tablet, Take 20 mg by mouth, Disp: , Rfl: sevelamer carbonate (Renvela) 800 MG tablet, TAKE TWO TABLETS BY MOUTH THREE TIMES A DAY (WITH MEALS) AND TAKE ONE TABLET WITH SNACKS (7 TABLETS DAILY), Disp: , Rfl: Allergies Sulfa antibiotics Past Surgical History Past Surgical History: Procedure Laterality Date ANGIOGRAM angiogram 2 vessels with severe CAD CEREBRAL ANGIOGRAM 2 vessels wiht severe CAD COLONOSCOPY 2016 CT ANGIOGRAM ABDOMEN PELVIS 08/30/2024 CT ANGIOGRAM ABDOMEN PELVIS 08/30/2024 OTHER SURGICAL HISTORY 05/28/2022 placement of peritoneal dialysis catheter- AVV Family History Family History Problem Relation Name Age of Onset Hypertension Mother Breast cancer Mother Diabetes Father Hypertension Father Hyperlipidemia Father Heart disease Father Objective General assessment: Alert and oriented. Pleasant disposition. Accompanied by his spouse, Eneida. Vascular: DP faintly palpable bilateral. PT faintly palpable bilateral. CFT remains fairly brisk all digits. Temperature gradient: Warm-slightly cool all digits. There is no appreciable ankle edema. Neurologic: Vibratory sensation absent at the MTP joints. 5.07 MONOFILAMENT: Inconsistent localization over the digital brittany. Improved and intact localization through the midfoot and heel/ankle areas. Diminished tactile sensation over the digital brittany. Dermatologic: Skin turgor is fair. Web space areas are clean, dry, non-inflamed. Unremarkable for eczema or dermatitis. No clinical signs of ulceration or open wound. Toenail pathology: Dystrophic, mycotic multiple digits. Orthopedic: Range of motion: Functional but limited ankle, subtalar and 1st MTP joint range of motion. Lesion pattern: Minimally raised, non-inflamed hyperkeratotic lesion sub 5th metatarsal condyle left foot. No forefoot or digital discrete keratotic lesions are otherwise noted. Right foot: Status post partial 5th ray amputation; 4th digit amputation at the MTP joint. Non-dystrophic, well healed scar line. Mild localized swelling/soft tissue hypertrophy. No focal motor deficits are noted. Radiology: Assessment/Plan IDDM Diabetic peripheral neuropathy/loss of protective sensation (Q9). 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 Status post 4th toe amputation right foot (Q7). Diabetic peripheral vasculopathy (Q8). CKD requiring dialysis. Plan: Indications for therapeutic footwear and custom molded accommodative orthoses: As noted above: Accommodate deformity. Offloading of digital and forefoot structures; dispersion of peak plantar forefoot pressures; reducing potential for skin breakdown, neuropathic and/or vasculopathic ulceration and related complications. Allow patient to maintain current ADLs and physical activities; reducing risk profile. Fitting of Dr. Friedman therapeutic footwear and multi-laminate, multi-density accommodative orthoses x 1 pair. All are noted to be in good quality and therapeutic condition, with no flaws or defects noted. Patient is able to effectively place each shoe without difficulty. The shoes appear to fit well in length and width, with sufficient space through the forefoot and toe box areas. Patient is able to ambulate without difficulty, noting no perceived pressure points, areas of ill-fit or heel slippage. All instructions reviewed relative to the acclimating process; emphasis on daily inspection for any sign of skin irritation, blister formation, perceived areas of tightness or ill-fit, heel slippage etc.; wearing of the shoes inside only until certain that return is not necessary. Goals, objectives and rationale reviewed. All appropriate documents are reviewed sufficient is understanding; signed, witnessed and dated. Procedure: This note was created with the assistance of a speech recognition program. While intending to generate a timely document that accurately reflects the content of the visit, no guarantee can be provided that every grammatical or spelling mistake has been or will be identified or corrected. Thank you for your understanding. Leann Corado DPM documented in this encounter [facility] 09-20-2024 Note Received referral fo r patient to have an evaluation for possible transplant. Patient is an established patient with Dr. Sosa who was seen 06/21/24, at that time physician mentioned a stress would be needed. Patient scheduled for testing, pending results a follow up appointment will be made. [facility] 09-06-2024 History of Present illness Narrative Images from the original note were not included. HPI: Patient presents to clinic for diabetic nailcare. They were diagnosed with diabetes chronic. He states that they has no pain in the feet. There is pain related to the toenails, especially with shoe gear and pressure. They have difficulty with trimming the nails due to trouble reaching them and because of the thickness in the nail. Patient has problems with slow healing wounds or sores on the feet. Patient does have burning, tingling and numbness in the feet. Patient's PCP is Douglas Juárez MD. Date of Last visit: . Patient follows with his kidney doctor. No other pedal complaints at this time. Examination: General Examination: GENERAL APPEARANCE:awake, aware of surroundings, in no acute distress. Foot Exam: 09/06/24 Vascular: DORSALIS PEDIS PULSE:1/4. POSTERIOR TIBIAL PULSE:1/4. TEMPERATURE GRADIENT:warm to cool, cold along the toes. EDEMA:To the lateral right foot. CAPILLARY FILLING TIME(sec):capillary fill intact bilateral digits less than 3 secs. Neurologic: VIBRATORY:Absent to the hallux IPJ bilateral. SEMMES-MICHAEL 5.07 MONOFILAMENTIntact to the plantar ball the foot and toes. Dermatologic: HYPERKERATOSIS:distal medial left hallux. NAIL PATHOLOGY:digits 1-5 left, 1-3 right are intact. Left 5th digital nail is loosened from the underlying toenail bed. The left hallux nail is loosened from the underlying nail bed with evidence of ingrown to the lateral proximal nail fold SKIN PATHOLOGY:Thin, decreased hair growth. Orthopedic: FOOT MORPHOLOGY: slight cavus. JOINT RANGE OF MOTION: without pain or crepitus. DEFORMITIES: hammertoes 2-4 bilateral. MUSCLE STRENGTH: 5/5 for all pedal groups tested. Diabetic shoes and inserts: Date of diabetic foot exam: 08/13/22 Previous amputation of the foot were part of the foot: Yes- 4th, 5th toes, 5th ray right History of previous ulceration of the foot: Yes History of pre-ulcerative callus of the foot: No Peripheral neuropathy with evidence of callus formation: Yes Foot deformity: Yes Poor circulation: No Assessments: 1. Osteomyelitis of foot, right, acute - M86.171 2. Ulcer of right foot with bone involvement without evidence of necrosis - L97.516 (Primary), lateral right foot 3. Right foot pain - M79.671 4. Cellulitis of right foot - L03.115 5. PVD (peripheral vascular disease) - I73.9 6. Abscess of right foot - L02.611 7. Skin ulcer of toe of right foot with fat layer exposed - L97.512, 4th and 5th toe amputation sites 8. Type 2 diabetes mellitus with foot ulcer - E11.621 Treatment Note: ICD B35.1 - Dermatophytosis of nail: 1. Nails were debrided in length and thickness by manual and mechanical means. 2. Advised patient on continued proper diabetic foot care including daily monitoring of their feet for any new complaints or concerns that may arise. 3. Discussed importance of tight blood sugar control to prevent future complications. 4. RTC: 9-12 weeks or as needed if problems arise. Callous: 1. Hyperkeratosis/porokeratosis as above noted was debrided. 2. Instructed patient on use of aperture pads or Silipos padding/toe spacers to prevent rubbing and continued development of the hyperkeratosis. 3. Also discussed use of moisturizing creams for overall increased hydration to the skin. 4. Discussed continued use of proper foot gear to avoid excess pressure over the callous site. documented in this encounter [facility] 09-06-2024 Note Patient Infection Ri sk NOTE: All vaccines should ideally be given prior to transplantation. Live vaccines are contraindicated following transplantation. If non-live vaccines are given after transplantation this should occur 6 months after transplantation while on stable immunosuppression to maximize immune system response. Vaccinations Immunization History Administered Date(s) Administered Pfizer SARS-CoV-2 Vaccination 07/08/2020, 07/29/2020, 06/11/2021, 06/11/2021 Unspecified Sars-Cov-2 Vaccination 07/08/2020, 07/29/2020 Recommend the following vaccines if not received and insurance permissible -- Hepatitis B: repeat series -- Influenza vaccine: during season -- Tdap vaccine: due -- Pneumococcal 20V vaccine: up to date -- Shingrix: due -- VZV: immune -- MMR: immune -- RSV: in the fall EBV IgM, if patient is asymptomatic no further intervention is needed Stay safe after a transplant : It's important to stay safe and prevent infections after getting a transplant, here are some guidance to help lower your chances of getting an infection: How to prevent contact illness --- Sickness What to Do: Wash your hands after you: - Touch or clean up pets/animals - Before you eat - Before and after you touch a wound Use bleach wipes to clean the house if someone has diarrhea Clean cuts and abrasions right away Wear gloves if you changing diapers and wash hands right away when you're done What not to do: X do not go barefoot outside Prevent airway infections: What to Do: Avoid close contact with anyone sick with respiratory illness , if must have a contact both of you should wear a surgical mask Avoid crowded places , ira in fall and winter seasons, if must be in crowded places wear a mask Avoid jobs that puts you at risk for infections such as prisons, homeless shelters, construction, animal care settings, landscaping, gardening. Talk to your team if you cannot avoid these jobs/places What not to do : X do not vape or smoke X do not go near soil mulch, birds dropping, chicken coops or caves (the might have some mold that could cause you an infection that wouldn't happen in someone who didn't get transplanted) X do not go near construction sites, places with a lot of dust such as home remodeling X do not clean roof gutters Water safety: What to do: Boil water before using it or use bottled water instead Clean up standing water quickly to avoid mold Use bottled water when you travel for brushing your teeth or drinking What not to do: X Do not drink water from lakes, vargas or garden hose X Do not go in lakes, public pools, or hot tubs Food safety: What not to do: Do not drink or eat unpasteurized milk or diary products Do not eat raw or undercooked eggs, meat, poultry and fish Do not eat food from someone who recently had diarrhea Animal and pets: What to do : Avoid touching reptiles, duckling, young cats Avoid animal bites and scratches Wash your hands after handling pets/animals What not to do: Do not clean bird cages, bird feeder, aquariums, litter boxes, or handle animal feces, if cannot avoid it wear gloves and a mask Do not hold a pet that just got a live vaccine Do not get a new pets, till at least 6-12 months from transplant with stable medication regimen Safe sexual activity: What to do: Always use latex condom during sex Leland Rangel MD Infectious diseases [facility] 08-30-2024 Note I saw the patient in the clinic. They understood all the financial responsibilities associated with an organ transplant and the expense of prescriptions after transplant. This includes all co-pays, deductibles and out of pocket expenses. The patient was instructed to contact me of any insurance or financial changes. My card was given to them for direct contact. The patient was given copies of all information and patient financial responsibility forms they signed [facility] 08-30-2024 Note Pre-Transplant Evalu ation Nephrology Consult Chief Complaint Patient presents with Kidney Eval PCP: Douglas Juárez MD Txp Referring: Cristobal Butts [facility] [id number] Organ: Kidney Subjective Visit Vitals BP 161/85 (BP Location: Left arm, Patient Position: Sitting) Pulse 57 Temp 36.7 ???C (98.1 ???F) (Tympanic) Resp 18 Ht 1.93 m (6' 4 ) Wt 97.3 kg (214 lb 6.4 oz) SpO2 100% BMI 26.10 kg/m??? Smoking Status Former BSA 2.28 m??? Allergies Allergen Reactions Sulfa (Sulfonamide Antibiotics) Medication Documentation Review Audit Reviewed by Maura Hassan RN (Registered Nurse) on 08/30/24 at 0806 Medication Order Taking? Sig Documenting Provider Last Dose Status aspirin 81 mg EC tablet [id number] Yes Take 1 tablet every day by oral route. Historical Provider, Active calcium carbonate (Tums) 200 mg calcium (500 mg) chewable tablet [id number] Yes Chew 1 tablet three times daily. Historical Provider, Active carvedilol (Coreg) 25 mg tablet [id number] Yes TAKE 1 AND 1/2 TABLETS BY MOUTH TWICE A DAY Casimiro Sosa MD Active Patient not taking: Discontinued 08/30/24 08 Discontinued 08/30/24 0803 guaiFENesin (Mucinex) 600 mg 12 hr tablet [id number] Yes Take 1,200 mg by mouth 1 (one) time each day. Do not crush, chew, or split. Georgie Moore MD Active hydrALAZINE (Apresoline) 50 mg tablet [id number] Yes TAKE 1 TABLET (50 MG) BY MOUTH IN THE MORNING, AFTERNOON, AND AT BEDTIME. Paola Zhang CNP Active hydrOXYzine HCL (Atarax) 25 mg tablet [id number] Yes Take 25 mg by mouth 1 (one) time. Georgie Moore MD Active insulin aspart (NovoLOG) 100 unit/mL (3 mL) pen [id number] Yes INJECT PER SCALEIF SUGAR IS <140 = 4U, 140-200 = 8U, OVER 200 12U (35 DAY SUPPLY) Georgie Moore MD Active insulin glargine (Lantus) 100 unit/mL (3 mL) pen [id number] Yes INJECT 16 UNITS SUB Q DAILY (83 DAY SUPPLY) Historical ProviderMD Active isosorbide dinitrate (Isordil) 10 mg tablet [id number] Yes TAKE 1 TABLET (10 MG) BY MOUTH IN THE MORNING, AT NOON, AND AT BEDTIME. Casimiro Sosa MD Active levothyroxine (Synthroid, Levoxyl) 100 mcg tablet [id number] Yes Take 1 tablet by mouth in the morning. Georgie Moore MD Active liothyronine (Cytomel) 5 mcg tablet [id number] Yes Take 2 tablets by mouth in the morning. Historical ProviderMD Active magnesium oxide (Mag-Ox) 400 mg (241.3 mg magnesium) tablet [id number] Yes Take 1 tablet by mouth in the morning. Georgie Moore MD Active montelukast (Singulair) 10 mg tablet [id number] Yes Take 1 tablet by mouth in the morning. Georgie Moore MD Active Nephro-Jose 0.8 mg tablet [id number] Yes Take 1 tablet by mouth in the morning. Georgie ProviderMD Active NIFEdipine XL (Procardia XL) 30 mg 24 hr tablet [id number] Yes Take 1 tablet by mouth in the morning. Georgie Moore MD Active omeprazole (PriLOSEC) [address] capsule [id number] Yes Take 1 capsule by mouth in the morning and at bedtime. Historical Provider, Active potassium chloride CR (Klor-Con M20) 20 mEq ER tablet [id number] Yes Take 20 mEq by mouth in the morning. Historical Provider, Active pravastatin (Pravachol) 20 mg tablet [id number] Yes Take 1 tablet (20 mg) by mouth in the morning. Casimiro Sosa MD Active sevelamer carbonate (Renvela) 800 mg tablet [id number] Yes TAKE ONE TABLET BY MOUTH THREE TIMES A DAY WITH MEALS Historical Provider, Active Immunization History Administered Date(s) Administered Pfizer SARS-CoV-2 Vaccination 07/08/2020, 07/29/2020, 06/11/2021, 06/11/2021 Unspecified Sars-Cov-2 Vaccination 07/08/2020, 07/29/2020 Patient Active Problem List Diagnosis Edema of lower extremity Hypertensive disorder Left ventricular systolic dysfunction Mitral valve regurgitation Pericardial effusion Coronary artery disease involving [place] coronary artery of [place] heart without angina pectoris CKD (chronic kidney disease) Anemia Anemia due to stage 3b chronic kidney disease (CMS/HCC) Abscess of right foot MARTHA (acute kidney injury) Fever History of fever Metabolic acidosis Osteomyelitis (CMS/HCC) Diabetes mellitus with diabetic neuropathy (CMS/HCC) Anxiety Chronic fatigue syndrome Diabetic neuropathy (CMS/HCC) Diastolic dysfunction End-stage renal disease (CMS/HCC) Erectile dysfunction Chronic GERD History of [place] (myocardial infarction) History of osteomyelitis Hypercholesterolemia Hyperparathyroidism Hypothyroidism Iron deficiency anemia Multiple nodules of lung Occult blood in stools Peritoneal dialysis status Vitamin D deficiency Type 2 diabetes mellitus (CMS/HCC) Diabetic foot ulcers (CMS/HCC) Chronic foot ulcer (CMS/HCC) Heart valve disease CHF (congestive heart failure) (CMS/HCC) Myocardial infarction (CMS/HCC) History of pleural effusion Melo (more content not included)... [facility] 08-30-2024 Note Transplant Nutrition Assessment Name: Gopal Yates : 1965 Assessment date: 08/30/2024 PMH: Anemia, Anxiety, CHF, CAD, DFU, ED, ESRD , GERD, HLD, HTN, hypothyroid, [place], PVD, hyperparathyroid, DM, vitamin D deficiency Dialysis HX: on PD Height: 193cm Weight: 97.3kg BMI Classification: Overweight (25 - 29.99)Body mass index is 26.1 kg/m???. Wt Readings from Last 10 Encounters: 08/30/24 97.3 kg (214 lb 6.4 oz) 06/21/24 97.1 kg (214 lb) 12/22/23 95.3 kg (210 lb) 09/09/23 89.8 kg (198 lb) 03/02/23 87.5 kg (193 lb) 07/22/22 82.6 kg (182 lb) 01/12/22 86.6 kg (191 lb) 06/16/21 91.2 kg (201 lb) 05/19/21 91.2 kg (201 lb) 04/18/21 91.6 kg (202 lb) Appetite: Fair. Gets nauseated due to phlem from his sinuses at night/in the AM, chronic issue. Saw a GI doctor and ENT. Will be seeing an occupational therapy manager. Context: Denies weight changes. No food allergies Current diet: Low phosphorus. Protein shakes on occasions. Sometimes eats lunch out. Most meals are prepared and eaten at home. Nutrition/Diet: Well-nourished., Adequate protein intake., and Adequate caloric intake. Diabetes Management: DM on 16units lantus , denies needing the novolog. Says his A1C was 6.7% 06/21/24 Diet Recall Breakfast: Skips Lunch: Hamburger or ham sandwich Dinner: Chicken, beef, potatoes. Snacks: fruit Drinks: coke zero or iced tea Dietary & Physical Activity Compliance: -Diet: low in vegetables -Activity: Sedentary, says he has neuropathy in his legs and it becomes difficult to walk Reported Medications/Supplements: TUMS, lantus, novolog , mg, nephrovite, omeprazole, Kcl, renvela Nutrition Labs: WNL at dialysis Nutrition Social History: No concerns identified Associated Symptoms: Nausea in the morning Skin Appearance: intact Nutrition risk :low. Patient Goals: Diet: Follow meal plan given and portion control., Glycemic control., and Increase vegetables. Exercise: Add exercise program/regimen. 30 minutes of physical activity most days Follow-Up: annually pre-transplant Notes: RD saw the patient in clinic today for a kidney transplant nutrition assessment. Nutrition risk is low and RD has no concerns. Post transplant diet guidelines discussed with patient. Chari Coleman RD [facility] 08-30-2024 Note Coordinator met with patient for initial transplant evaluation appointment in Transplant clinic today. Explained transplant process and consents with patient. Answered patient questions. Social work, finance and complaint coordinator in to see patient. Dr. Guadalupe in for H&P and transplant plan. Dr. Rodrigues in for surgical evaluation. Coordinator provided copy of plan to patient and reviewed it with them. Patient aware further testing needed and to keep transplant team updated. Understanding verbalized by patient. Body Shop Technician provided verbal order for patient labs, EKG, CXR and CT scan today. Work-up Needed-Date of Eval Letter to be Mailed to patient and faxed to Body Shop Technician/ Dialysis Center. Mold Bunch Trimmer provided patient TE folder with education on various transplant consents, the workup process, surgery details, postop expectations, transplant statistics, and living donor information. Answered patient questions and verified understanding. [facility] 08-30-2024 Note Pre-Transplant Kidne y Evaluation Surgery Consultation PCP: Douglas Juárez MD Txp Referring: Cristobal Butts [facility] Pharmacy: [facility] [place] [id number] Organ: Kidney Subjective Visit Vitals BP 161/85 (BP Location: Left arm, Patient Position: Sitting) Pulse 57 Temp 36.7 ???C (98.1 ???F) (Tympanic) Resp 18 Ht 1.93 m (6' 4 ) Wt 97.3 kg (214 lb 6.4 oz) SpO2 100% BMI 26.10 kg/m??? Smoking Status Former BSA 2.28 m??? Allergies[1] Medication Documentation Review Audit Reviewed by Maura Hassan RN (Registered Nurse) on 08/30/24 at 0806 Medication Order Taking? Sig Documenting Provider Last Dose Status aspirin 81 mg EC tablet [id number] Yes Take 1 tablet every day by oral route. Historical Provider, Active calcium carbonate (Tums) 200 mg calcium (500 mg) chewable tablet [id number] Yes Chew 1 tablet three times daily. Historical Provider, Active carvedilol (Coreg) 25 mg tablet [id number] Yes TAKE 1 AND 1/2 TABLETS BY MOUTH TWICE A DAY Casimiro Sosa MD Active Patient not taking: Discontinued 08/30/24 0803 Discontinued 08/30/24 0803 guaiFENesin (Mucinex) 600 mg 12 hr tablet [id number] Yes Take 1,200 mg by mouth 1 (one) time each day. Do not crush, chew, or split. Georgie Moore MD Active hydrALAZINE (Apresoline) 50 mg tablet [id number] Yes TAKE 1 TABLET (50 MG) BY MOUTH IN THE MORNING, AFTERNOON, AND AT BEDTIME. Paola Zhang CNP Active hydrOXYzine HCL (Atarax) 25 mg tablet [id number] Yes Take 25 mg by mouth 1 (one) time. Historical MD Oscar Active insulin aspart (NovoLOG) 100 unit/mL (3 mL) pen [id number] Yes INJECT PER SCALEIF SUGAR IS <140 = 4U, 140-200 = 8U, OVER 200 12U (35 DAY SUPPLY) Historical MD Oscar Active insulin glargine (Lantus) 100 unit/mL (3 mL) pen [id number] Yes INJECT 16 UNITS SUB Q DAILY (83 DAY SUPPLY) Historical MD Oscar Active isosorbide dinitrate (Isordil) 10 mg tablet [id number] Yes TAKE 1 TABLET (10 MG) BY MOUTH IN THE MORNING, AT NOON, AND AT BEDTIME. Casimiro Sosa MD Active levothyroxine (Synthroid, Levoxyl) 100 mcg tablet [id number] Yes Take 1 tablet by mouth in the morning. Georgie Moore MD Active liothyronine (Cytomel) 5 mcg tablet [id number] Yes Take 2 tablets by mouth in the morning. Georgie Moore MD Active magnesium oxide (Mag-Ox) 400 mg (241.3 mg magnesium) tablet [id number] Yes Take 1 tablet by mouth in the morning. Historical MD Oscar Active montelukast (Singulair) 10 mg tablet [id number] Yes Take 1 tablet by mouth in the morning. Georgie Moore MD Active Nephro-Jose 0.8 mg tablet [id number] Yes Take 1 tablet by mouth in the morning. Georgie Moore MD Active NIFEdipine XL (Procardia XL) 30 mg 24 hr tablet [id number] Yes Take 1 tablet by mouth in the morning. Georgie Moore MD Active omeprazole (PriLOSEC) [address] capsule [id number] Yes Take 1 capsule by mouth in the morning and at bedtime. Georgie ProviderMD Active potassium chloride CR (Klor-Con M20) 20 mEq ER tablet [id number] Yes Take 20 mEq by mouth in the morning. Historical Provider, Active pravastatin (Pravachol) 20 mg tablet [id number] Yes Take 1 tablet (20 mg) by mouth in the morning. Casimiro Sosa MD Active sevelamer carbonate (Renvela) 800 mg tablet [id number] Yes TAKE ONE TABLET BY MOUTH THREE TIMES A DAY WITH MEALS Historical Provider, Active Immunization History Administered Date(s) Administered Pfizer SARS-CoV-2 Vaccination 07/08/2020, 07/29/2020, 06/11/2021, 06/11/2021 Unspecified Sars-Cov-2 Vaccination 07/08/2020, 07/29/2020 Diagnoses: 1. Type 2 diabetes mellitus with ESRD (end-stage renal disease) ([facility]) 2. Encounter for other preprocedural examination 3. End stage renal disease ([facility]) 4. 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 not on chronic dialysis, with long-term current use of insulin ([facility]) Problems: Problem List[2] Family History[3] Social History[4] Medical History[5] Surgical History[6] Dialysis History Start End Type Center Comments 06/17/2022 Peritoneal [facility]. everyday Dialysis Center Information [facility]. Address: [address] [place] [address] [address] [place] [address] Travel Screening No screening recorded since 08/29/24 0000 Travel History Travel since 07/30/24 No documented travel since 07/30/24 HPI The patient is a 59 year old male with ESRD likely secondary to Type 2 diabetes mellitus and cardiorenal syndrome. He began dialysis on 06/17/2022 and currently dialyzes at home daily using peritoneal dialysis and [facility] [place]. He denies any issues with clotting or infection of his dialysis access. His PD catheter is in the right middle quadrant. His graphic arts instructor is Dr. Hernandes (more content not included)... [facility] 08-30-2024 Note Identifying Informat ion Name: Gopal Yates : 1965 Assessment date: 08/30/2024 Transplant type: Kidney Transplant Evaluation - 08/30/2024 Primary language: Korean Mu-Ism/spirituality: Catholic People present at assessment: spouse Eneida Do you have any mandaen, ethical or personal objections to accepting blood products, surgery and/or transplant? No Citizenship Where were you born? In the [place] [facility] Where do you currently live or are staying? [facility] Is this greater than 3-4 hours from [email or web address]? No. Family Background and Supportive Relationships Mother: COD: Alzheimer Father: COD: heart issues, he was in the hospital. Siblings: none Children: Biological Number of children, living or (UNOS question): 2 Names, age, health status, relationship, address: Adrian, 29, daughter, healthy, [place] with us. Charlene, 27, daughter, colitis and Chron's, [facility], [place]- about an hour from patient. Marital/relationship status: for 31 years Household composition: Patient, , and daughter Adrian. Are there any current or past significant life changes or traumatic events? None Support / Caregiver Plans Who will be your primary caregiver? 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 Who will be your secondary caregiver(s)? 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 Other important supportive relationships: If several caregivers are involved, will they be able to cooperate with each other? No concerns. How comfortable are you asking for and/or receiving help? No concerns. Have you been or are you currently a caregiver for someone else (i.e. children, spouse, parents)? No Are there any ongoing family disagreements or life issues that may be impacted by the transplant? None Does anyone in your household or caregiving team use tobacco, or abuse alcohol or illicit substances? None Advance Directives Do you have an advance directive? F No, Info Provided Do you have a DPOA for healthcare or finances? no A living will? no Who is the proxy? NOK: Education given: Yes Information mailed: No Education / Employment / Financial Situation Highest education level: Some College Are you still working? No. Reason: Disability What type of work do you/did you do? 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 Date of last employment: 4-5 years What are your thoughts about returning to work after transplant? Maybe Disability Are you on any form of disability? yes What type? Unsure. What is the status? active Financial Status Income per month: 1900 from SSI, 1,000 working Income source: SSI and working. Do you have any current financial concerns? None Is current income adequate to meet monthly needs and current medications? yes Would you be interested in fundraising information? no Insurance / Resources Payer/Plan Subscriber Name Rel Member # Group # MEDICARE - MEDICARE P* GOPAL YATES Self [id number] [address] MEDICAID [place] - MEDIC* GOPAL YATES Self [id number] [address] [place] [address] Are you aware of a coordination of benefits with your insurance and Medicare (if applicable)? yes Are you receiving assistance through [facility] Program: No Medication Coverage Do you have prescription coverage: Yes What are your medication costs for generic, preferred brand, and non-preferred brand medications? $2-4. About 30 for the whole month. Indicate medication costs after transplant: Educated How will you pay for these medications after transplant? Insurance VA Benefits Have you served in the ? No Understanding of Medical Situation What is your primary diagnosis? HTN and DM When did you become aware of your diagnosis? 4 years ago Do you have any other health issues? yes HTN, DM controlled with medications. If yes, how do they impact you? HD- I dont feel real good, I can't do things that I want to do. Dialysis center, schedule, type, and start date (if applicable): Dialysis History Start End Type Center Comments 06/17/2022 Peritoneal [facility] everyday Dialysis Center Information [facility]. Address: [address] [place] [address], [address] [facility] [address] Dialysis Schedule: PD, 10.5, yellow, green and purple. Treatment Compliance / Adherence How do you manage your medications now? Memory and Other from the bottle. Do you have any difficulties in getting or taking your medications (more content not included)... [facility] 08-10-2024 Hospital Discharge instructions Ambulatory OrdersReferral to ENT Time Frame: 08/10/24, Location: None Selected [facility] Work Phone: 08-02-2024 History of Present illness Narrative Images from the original note were not included. Subjective Patient ID: Gopal Yates Jr. is a 59 y.o. male who presents for Shoe measure ( Gopal Yates Jr. is a 59 y.o. male who presents for DM she measure. (PCP: Dr. Marquita JAVIER 07/2023, NV: 07/20/24, A1C: 6.9, BS: doesn't check,SS: 12).). HPI Patient returns today for measurements for therapeutic footwear and accommodative orthoses; education and counseling relative to appropriate footwear sizing and selection. Offers no specific concerns or complaints. Medications Current Outpatient Medications: aspirin 81 MG EC tablet, Take 81 mg by mouth Daily, Disp: , Rfl: carvedilol (Coreg) 3.125 MG tablet, Take 3.125 mg by mouth in the morning and 3.125 mg in the evening. Take with meals., Disp: , Rfl: hydrALAZINE (Apresoline) 50 MG tablet, Take 50 mg by mouth in the morning and 50 mg before bedtime., Disp: , Rfl: Lantus SoloStar 100 UNIT/ML pen, INJECT 16 UNITS SUBCUTANEOUSLY DAILY, Disp: , Rfl: magnesium 30 MG tablet, Take 30 mg by mouth in the morning and 30 mg before bedtime., Disp: , Rfl: omeprazole OTC (PriLOSEC OTC) 20 MG EC tablet, Take 20 mg by mouth in the morning. Take before meals. Do not crush, chew, or split., Disp: , Rfl: potassium chloride CR (Klor-Con M10) 10 MEQ ER tablet, Take 10 mEq by mouth Daily Do not crush or chew., Disp: , Rfl: pravastatin (Pravachol) 20 MG tablet, Take 20 mg by mouth, Disp: , Rfl: sevelamer carbonate (Renvela) 800 MG tablet, TAKE TWO TABLETS BY MOUTH THREE TIMES A DAY (WITH MEALS) AND TAKE ONE TABLET WITH SNACKS (7 TABLETS DAILY), Disp: , Rfl: Allergies Sulfa antibiotics Past Surgical History Past Surgical History: Procedure Laterality Date ANGIOGRAM angiogram 2 vessels with severe CAD CEREBRAL ANGIOGRAM 2 vessels wiht severe CAD COLONOSCOPY 2017 OTHER SURGICAL HISTORY 05/28/2022 placement of peritoneal dialysis catheter- AVV Family History Family History Problem Relation Name Age of Onset Hypertension Mother Breast cancer Mother Diabetes Father Hypertension Father Hyperlipidemia Father Heart disease Father Objective General assessment: Alert and oriented. Pleasant disposition. Accompanied by his spouse, Eneida. Vascular: DP faintly palpable bilateral. PT faintly palpable bilateral. CFT remains fairly brisk all digits. Temperature gradient: Warm-slightly cool all digits. There is no appreciable ankle edema. Neurologic: Vibratory sensation absent at the MTP joints. 5.07 MONOFILAMENT: Inconsistent localization over the digital brittany. Improved and intact localization through the midfoot and heel/ankle areas. Diminished tactile sensation over the digital brittany. Dermatologic: Skin turgor is fair. Web space areas are clean, dry, non-inflamed. Unremarkable for eczema or dermatitis. No clinical signs of ulceration or open wound. Toenail pathology: Dystrophic, mycotic multiple digits. Orthopedic: Range of motion: Functional but limited ankle, subtalar and 1st MTP joint range of motion. Lesion pattern: Minimally raised, non-inflamed hyperkeratotic lesion sub 5th metatarsal condyle left foot. No forefoot or digital discrete keratotic lesions are otherwise noted. Right foot: Status post partial 5th ray amputation; 4th digit amputation at the MTP joint. Non-dystrophic, well healed scar line. Mild localized swelling/soft tissue hypertrophy. No focal motor deficits are noted. Radiology: Assessment/Plan IDDM Diabetic peripheral neuropathy/loss of protective sensation (Q9). 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 Status post 4th toe amputation right foot (Q7). Diabetic peripheral vasculopathy (Q8). CKD requiring dialysis. Plan: Indications for therapeutic footwear and custom molded accommodative orthoses: As noted above: Accommodate deformity. Offloading of digital and forefoot structures; dispersion of peak plantar forefoot pressures; reducing potential for skin breakdown, neuropathic and/or vasculopathic ulceration and related complications. Allow patient to maintain current ADLs and physical activities; reducing risk profile. Foam impressions obtained; simulated weight-bearing for custom molded accommodative orthoses and appropriate forefoot filler on the right. Measurements obtained in the weight-bearing position utilizing VuCOMPnock device. Patient education and counseling relative to the appropriate sizing and footwear selection. Follow-up for fitting of therapeutic footwear and custom molded accommodative orthoses. Procedure: This note was created with the assistance of a speech recognition program. While intending to generate a timely document that accurately reflects the content of the visit, no guarantee can be provided that every grammatical or spelling mistake has been or will be identified or corrected. Thank you for your understanding. Leann Corado DPM documented in this encounter [facility] 07-18-2024 History of Present illness Narrative Images from the original note were not included. Subjective Patient ID: Gopal Yates Jr. is a 58 y.o. male who presents for DM Foot Care (PCP: Dr. Marquita JAVIER 07/2023, NV: 07/20/24, A1C: 6.9, BS: doesn't check,SS: 12). HPI Initial patient encounter and assessment. Presents upon the kind referral of Dr. Larsen. States his intention to proceed with another pair of therapeutic footwear and custom molded orthoses. Current Dr. Friedman therapeutic footwear and accommodative orthoses dispensed in 2022. Medications Current Outpatient Medications: carvedilol (Coreg) 3.125 MG tablet, Take 3.125 mg by mouth in the morning and 3.125 mg in the evening. Take with meals., Disp: , Rfl: hydrALAZINE (Apresoline) 50 MG tablet, Take 50 mg by mouth in the morning and 50 mg before bedtime., Disp: , Rfl: Lantus SoloStar 100 UNIT/ML pen, INJECT 16 UNITS SUBCUTANEOUSLY DAILY, Disp: , Rfl: magnesium 30 MG tablet, Take 30 mg by mouth in the morning and 30 mg before bedtime., Disp: , Rfl: omeprazole OTC (PriLOSEC OTC) 20 MG EC tablet, Take 20 mg by mouth in the morning. Take before meals. Do not crush, chew, or split., Disp: , Rfl: potassium chloride CR (Klor-Con M10) 10 MEQ ER tablet, Take 10 mEq by mouth Daily Do not crush or chew., Disp: , Rfl: pravastatin (Pravachol) 20 MG tablet, Take 20 mg by mouth, Disp: , Rfl: sevelamer carbonate (Renvela) 800 MG tablet, TAKE TWO TABLETS BY MOUTH THREE TIMES A DAY (WITH MEALS) AND TAKE ONE TABLET WITH SNACKS (7 TABLETS DAILY), Disp: , Rfl: aspirin 81 MG EC tablet, Take 81 mg by mouth Daily, Disp: , Rfl: Allergies Sulfa antibiotics Past Surgical History Past Surgical History: Procedure Laterality Date ANGIOGRAM angiogram 2 vessels with severe CAD CEREBRAL ANGIOGRAM 2 vessels wiht severe CAD COLONOSCOPY 2016 OTHER SURGICAL HISTORY 05/28/2022 placement of peritoneal dialysis catheter- AVV Family History Family History Problem Relation Name Age of Onset Hypertension Mother Breast cancer Mother Diabetes Father Hypertension Father Hyperlipidemia Father Heart disease Father Objective General assessment: Alert and oriented. Pleasant disposition. Accompanied by his spouse, Eneida. Vascular: DP faintly palpable bilateral. PT faintly palpable bilateral. CFT remains fairly brisk all digits. Temperature gradient: Warm-slightly cool all digits. There is no appreciable ankle edema. Neurologic: Vibratory sensation absent at the MTP joints. 5.07 MONOFILAMENT: Inconsistent localization over the digital brittany. Improved and intact localization through the midfoot and heel/ankle areas. Diminished tactile sensation over the digital brittany. Dermatologic: Skin turgor is fair. Web space areas are clean, dry, non-inflamed. Unremarkable for eczema or dermatitis. No clinical signs of ulceration or open wound. Toenail pathology: Dystrophic, mycotic multiple digits. Orthopedic: Range of motion: Functional but limited ankle, subtalar and 1st MTP joint range of motion. Lesion pattern: Minimally raised, non-inflamed hyperkeratotic lesion sub 5th metatarsal condyle left foot. No forefoot or digital discrete keratotic lesions are otherwise noted. Right foot: Status post partial 5th ray amputation; 4th digit amputation at the MTP joint. Non-dystrophic, well healed scar line. Mild localized swelling/soft tissue hypertrophy. No focal motor deficits are noted. Radiology: Assessment/Plan IDDM Diabetic peripheral neuropathy/loss of protective sensation (Q9). 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 Status post 4th toe amputation right foot (Q7). Diabetic peripheral vasculopathy (Q8). CKD requiring dialysis. Plan: Review of all clinical findings, high-risk nature of the diabetic neuropathic and vasculopathic foot condition, treatmentStrategy and objectives. Proceed with pre-certification and documentation for therapeutic footwear and custom molded accommodative orthoses. Procedure: This note was created with the assistance of a speech recognition program. While intending to generate a timely document that accurately reflects the content of the visit, no guarantee can be provided that every grammatical or spelling mistake has been or will be identified or corrected. Thank you for your understanding. Leann Corado DPM documented in this encounter [facility] 06-21-2024 Note [place] [facility] Subjective Gopal Yates is a 58 y.o. year old male patient being seen for 6 mo follow up. Labs and Echo done. Patient states he is feeling pretty good even though he's taking dialysis. Patient states he has no cardiac complaints at this time. Patient Active Problem List Diagnosis Edema of lower extremity Hypertensive disorder Left ventricular systolic dysfunction Mitral valve regurgitation Pericardial effusion Coronary artery disease involving [place] coronary artery of [place] heart without angina pectoris CKD (chronic kidney disease) Anemia Anemia due to stage 3b chronic kidney disease ([facility]/HCC) Abscess of right foot MARTHA (acute kidney injury) Fever History of fever Metabolic acidosis Osteomyelitis ([facility]) Other acute postprocedural pain Receiving intravenous antibiotic treatment at home Recent surgical procedure on lower extremity Subjective fever Surgical wound present Diabetes mellitus with diabetic neuropathy ([facility]/HCC) Anxiety Chronic fatigue syndrome Diabetic neuropathy ([facility]/HCC) Diastolic dysfunction End-stage renal disease ([facility]/HCC) Erectile dysfunction Chronic GERD History of [place] (myocardial infarction) History of osteomyelitis Hypercholesterolemia Hyperparathyroidism Hypothyroidism Iron deficiency anemia Multiple nodules of lung Occult blood in stools Peritoneal dialysis status Vitamin D deficiency Diabetes ([facility]/HCC) Type 2 diabetes mellitus with foot ulcer (CODE) ([facility]/HCC) Chronic foot ulcer ([facility]/HCC) Family History Problem Relation Name Age of Onset Alzheimer's disease Mother Coronary artery disease Father Coronary artery disease Paternal Grandmother Social History Tobacco Use Smoking status: Former Types: Cigarettes Smokeless tobacco: Never Substance Use Topics Alcohol use: Not Currently Drug use: Never HPI Gopal is seen in follow-up. He is a 58-year-old man with prior history of coronary artery disease status post intervention in 2019 to the circumflex. At that time he had calcified 70% LAD stenosis with an IFR of 0.8 and mild to moderate RCA stenosis. He has chronic systolic heart failure. He has history of uncontrolled systemic hypertension in the past. He has chronic kidney disease and in May 2022 he was started on peritoneal dialysis. In May 2022 he was admitted to [facility] for osteomyelitis and had toe amputations. In August 2023 he was evaluated in cardiology clinic and because of low LDL levels of his ezetimibe was stopped. At visit of 12/22/2023 and due to low LDL I reduced pravastatin to 20 mg daily. Today he reports he has been doing well. he denies chest pain, shortness of breath, palpitations, dizziness, syncope and leg edema. he has good exercise tolerance. There is no claudication. He reports that he is looking into the option of renal transplantation. Review of Systems All other systems reviewed and are negative. Objective Visit Vitals BP 134/86 (BP Location: Left arm, Patient Position: Sitting) Pulse 63 Ht 1.93 m (6' 4 ) Wt 97.1 kg (214 lb) SpO2 98% BMI 26.05 kg/m??? Smoking Status Former BSA 2.28 m??? Physical Exam Constitutional: Appearance: He is [...] day by oral route., Disp: , Rfl: carvedilol (Coreg) 25 mg tablet, TAKE 1 AND 1/2 TABLETS BY MOUTH TWICE A DAY, Disp: 270 tablet, Rfl: 3 famotidine (Pepcid) 20 mg tablet, Take 1 tablet by mouth at bedtime., Disp: , Rfl: hydrALAZINE (Apresoline) 50 mg tablet, TAKE 1 TABLET (50 MG) BY MOUTH IN THE MORNING, AFTERNOON, AND AT BEDTIME. (Patient michaela (more content not included)... [facility] 03-28-2024 History of Present illness Narrative Images from the original note were not included. HPI: Patient presents to clinic for diabetic nailcare. They were diagnosed with diabetes chronic. He states that they has no pain in the feet. There is pain related to the toenails, especially with shoe gear and pressure. They have difficulty with trimming the nails due to trouble reaching them and because of the thickness in the nail. Patient has problems with slow healing wounds or sores on the feet. Patient does have burning, tingling and numbness in the feet. Patient's PCP is Douglas Juárez MD. Date of Last visit: 11/12/23. Patient follows with his kidney doctor. No other pedal complaints at this time. Examination: General Examination: GENERAL APPEARANCE:awake, aware of surroundings, in no acute distress. Foot Exam: 03/28/24 Vascular: DORSALIS PEDIS PULSE:1/4. POSTERIOR TIBIAL PULSE:1/4. TEMPERATURE GRADIENT:warm to cool, cold along the toes. EDEMA:To the lateral right foot. CAPILLARY FILLING TIME(sec):capillary fill intact bilateral digits less than 3 secs. Neurologic: VIBRATORY:Absent to the hallux IPJ bilateral. SEMMES-MICHAEL 5.07 MONOFILAMENTIntact to the plantar ball the foot and toes. Dermatologic: HYPERKERATOSIS:distal medial left hallux. NAIL PATHOLOGY:digits 1-5 left, 1-3 right are intact. Left 5th digital nail is loosened from the underlying toenail bed. The left hallux nail is loosened from the underlying nail bed with evidence of ingrown to the lateral proximal nail fold SKIN PATHOLOGY:Thin, decreased hair growth. Orthopedic: FOOT MORPHOLOGY: slight cavus. JOINT RANGE OF MOTION: without pain or crepitus. DEFORMITIES: hammertoes 2-4 bilateral. MUSCLE STRENGTH: 5/5 for all pedal groups tested. Diabetic shoes and inserts: Date of diabetic foot exam: 08/13/22 Previous amputation of the foot were part of the foot: Yes- 4th, 5th toes, 5th ray right History of previous ulceration of the foot: Yes History of pre-ulcerative callus of the foot: No Peripheral neuropathy with evidence of callus formation: Yes Foot deformity: Yes Poor circulation: No Assessments: 1. Osteomyelitis of foot, right, acute - M86.171 2. Ulcer of right foot with bone involvement without evidence of necrosis - L97.516 (Primary), lateral right foot 3. Right foot pain - M79.671 4. Cellulitis of right foot - L03.115 5. PVD (peripheral vascular disease) - I73.9 6. Abscess of right foot - L02.611 7. Skin ulcer of toe of right foot with fat layer exposed - L97.512, 4th and 5th toe amputation sites 8. Type 2 diabetes mellitus with foot ulcer - E11.621 Treatment Note: ICD B35.1 - Dermatophytosis of nail: 1. Nails were debrided in length and thickness by manual and mechanical means. 2. Advised patient on continued proper diabetic foot care including daily monitoring of their feet for any new complaints or concerns that may arise. 3. Discussed importance of tight blood sugar control to prevent future complications. 4. RTC: 9-12 weeks or as needed if problems arise. Callous: 1. Hyperkeratosis/porokeratosis as above noted was debrided. 2. Instructed patient on use of aperture pads or Silipos padding/toe spacers to prevent rubbing and continued development of the hyperkeratosis. 3. Also discussed use of moisturizing creams for overall increased hydration to the skin. 4. Discussed continued use of proper foot gear to avoid excess pressure over the callous site. documented in this encounter [facility] 12-22-2023 Note [place] [facility] Subjective Gopal Yates is a 58 y.o. year old male patient being seen for 3 mo follow up CAD, mitral valve regurgitation, and LVSD. Lipid panel was drawn yesterday. Zetia was stopped at last apt in August 2023 by Augustina Christiansen CNP. He states his graphic arts instructor wants him to increase nifedipine to 60mg in the AM due to elevated BP's around 140/70 when he's there. Patient wanted to get the ok from Dr. Sosa before making this change. Says at once point he took 2 tablets (30mg) by mistake one time and ended up in the ED. Patient feels good, as he denies chest pain, SOB, and palpitations. Patient Active Problem List Diagnosis Edema of lower extremity Hypertensive disorder Left ventricular systolic dysfunction Mitral valve regurgitation Pericardial effusion Coronary artery disease involving [place] coronary artery of [place] heart without angina pectoris CKD (chronic kidney disease) Anemia Anemia due to stage 3b chronic kidney disease ([facility]/HCC) Abscess of right foot MARTHA (acute kidney injury) ([facility]) Fever History of fever Metabolic acidosis Osteomyelitis ([facility]) Other acute postprocedural pain Receiving intravenous antibiotic treatment at home Recent surgical procedure on lower extremity Subjective fever Surgical wound present Diabetes mellitus with diabetic neuropathy ([facility]) Anxiety Chronic fatigue syndrome Diabetic neuropathy ([facility]) Diastolic dysfunction End-stage renal disease ([facility]) Erectile dysfunction Chronic GERD History of [place] (myocardial infarction) History of osteomyelitis Hypercholesterolemia Hyperparathyroidism ([facility]/HCC) Hypothyroidism Iron deficiency anemia Multiple nodules of lung Occult blood in stools Peritoneal dialysis status ([facility]) Vitamin D deficiency Diabetes ([facility]) Type 2 diabetes mellitus with foot ulcer (CODE) ([facility]) Family History Problem Relation Name Age of Onset Coronary artery disease Father Coronary artery disease Paternal Grandmother Social History Tobacco Use Smoking status: Former Types: Cigarettes Smokeless tobacco: Never Substance Use Topics Alcohol use: Not Currently Drug use: Never HPI Gopal is seen in follow-up. He is a 58-year-old man with prior history of coronary artery disease status post intervention in 2019 to the circumflex. At that time he had calcified 70% LAD stenosis with an IFR of 0.8 and mild to moderate RCA stenosis. He has chronic systolic heart failure. He has history of uncontrolled systemic hypertension in the past. He has chronic kidney disease and in May 2022 he was started on peritoneal dialysis. In May 2022 he was admitted to [facility] for osteomyelitis and had toe amputations. In August 2023 he was evaluated in cardiology clinic and because of low LDL levels of his ezetimibe was stopped. Today he reports he has been doing well. He feels much better after starting dialysis. he denies chest pain, shortness of breath, palpitations, dizziness, syncope and leg edema. he has good exercise tolerance. There is no claudication. He reports that his graphic arts instructor wanted to increase nifedipine dosage due to blood pressure reading of 140 systolic in the office. He reports that his blood pressure usually is around 120. Review of Systems All other systems reviewed and are negative. Objective Visit Vitals BP 128/76 (BP Location: Right arm, Patient Position: Sitting) Pulse 71 Ht 1.93 m (6' 4 ) Wt 95.3 kg (210 lb) SpO2 97% BMI 25.56 kg/m??? Smoking Status Former BSA 2.26 m??? Physical Exam Constitutional: Appearance: He is [...] Reactions Sulfa (Sulfonamide Antibiotics) Medications Current Outpatient Med (more content not included)... [facility] 12-15-2023 History of Present illness Narrative Images from the original note were not included. HPI: Patient presents to clinic for diabetic nailcare. They were diagnosed with diabetes chronic. He states that they has no pain in the feet. There is pain related to the toenails, especially with shoe gear and pressure. They have difficulty with trimming the nails due to trouble reaching them and because of the thickness in the nail. Patient has problems with slow healing wounds or sores on the feet. Patient does have burning, tingling and numbness in the feet. Patient's PCP is Douglas Juárez MD. Date of Last visit: 11/11/22. Patient follows with his kidney doctor. No other pedal complaints at this time. Examination: General Examination: GENERAL APPEARANCE:awake, aware of surroundings, in no acute distress. Foot Exam: 12/13/23 Vascular: DORSALIS PEDIS PULSE:1/4. POSTERIOR TIBIAL PULSE:1/4. TEMPERATURE GRADIENT:warm to cool, cold along the toes. EDEMA:To the lateral right foot. CAPILLARY FILLING TIME(sec):capillary fill intact bilateral digits less than 3 secs. Neurologic: VIBRATORY:Absent to the hallux IPJ bilateral. SEMMES-MICHAEL 5.07 MONOFILAMENTIntact to the plantar ball the foot and toes. Dermatologic: HYPERKERATOSIS:distal medial left hallux. NAIL PATHOLOGY:digits 1-5 left, 1-3 right are intact. Left 5th digital nail is loosened from the underlying toenail bed. The left hallux nail is loosened from the underlying nail bed with evidence of ingrown to the lateral proximal nail fold SKIN PATHOLOGY:Thin, decreased hair growth. Orthopedic: FOOT MORPHOLOGY: slight cavus. JOINT RANGE OF MOTION: without pain or crepitus. DEFORMITIES: hammertoes 2-4 bilateral. MUSCLE STRENGTH: 5/5 for all pedal groups tested. Diabetic shoes and inserts: Date of diabetic foot exam: 08/13/22 Previous amputation of the foot were part of the foot: Yes- 4th, 5th toes, 5th ray right History of previous ulceration of the foot: Yes History of pre-ulcerative callus of the foot: No Peripheral neuropathy with evidence of callus formation: Yes Foot deformity: Yes Poor circulation: No Assessments: 1. Osteomyelitis of foot, right, acute - M86.171 2. Ulcer of right foot with bone involvement without evidence of necrosis - L97.516 (Primary), lateral right foot 3. Right foot pain - M79.671 4. Cellulitis of right foot - L03.115 5. PVD (peripheral vascular disease) - I73.9 6. Abscess of right foot - L02.611 7. Skin ulcer of toe of right foot with fat layer exposed - L97.512, 4th and 5th toe amputation sites 8. Type 2 diabetes mellitus with foot ulcer - E11.621 Treatment Note: ICD B35.1 - Dermatophytosis of nail: 1. Nails were debrided in length and thickness by manual and mechanical means. 2. Advised patient on continued proper diabetic foot care including daily monitoring of their feet for any new complaints or concerns that may arise. 3. Discussed importance of tight blood sugar control to prevent future complications. 4. RTC: 9-12 weeks or as needed if problems arise. Callous: 1. Hyperkeratosis/porokeratosis as above noted was debrided. 2. Instructed patient on use of aperture pads or Silipos padding/toe spacers to prevent rubbing and continued development of the hyperkeratosis. 3. Also discussed use of moisturizing creams for overall increased hydration to the skin. 4. Discussed continued use of proper foot gear to avoid excess pressure over the callous site. documented in this encounter [facility] 09-16-2023 Note General Surgery Offi ce/Clinic Note Chief Complaint consultation for anemia HPI Staff 58 year old male presents on consultation from Dr. Juárez for positive occult stool and anemia. Labs completed 09/07 with HGB 8.4, HCT 25.1. Iron studies not completed. Patient verbalized anemia was diagnosed approximately 2 years ago. Had a workup at that time with nothing found. Patient on peritoneal dialysis. Nephrology gives him a monthly injection for his anemia (unsure name of medication). Denies abdominal or rectal pain. Denies rectal bleeding or change in bowel habits. Denies nausea or vomiting. No unexplained loss. Last colonoscopy completed 04/2018 with hyperplastic polyp. Never had EGD in the past. No known family history of colon cancer. History of Present Illness 58 yo male with h/o htn, CAD, previous TX, hyperlipidemia, DMII, ESRD, on peritoneal dialysis, hypothyroidism, diabetic neuropathy, referred for anemia and positive fecal occult blood; last colonoscopy 2018 with removal of sigmoid hyperplastic polyp; abd operations significant for insertion of peritoneal dialysis catheter; patient on baby asa daily; patient has had several year h/o anemia, managed by his Body Shop Technician; had admission [place] [facility], no upper endoscopy; denies change in bms or abd complaints; GERD controlled with Omeprazole; no dysphagia or early satiety, no wt loss; no N/V. no tobacco use; no fmhx of GI malignancy or IBD. Review of Systems PHQ Score Initial Depression Screen Score: 0 SCORE ROS - Provider Constitutional: no fever, no sweats, no weight loss. Eyes: yes glasses, no blurred vision, no visual loss. ENMT: no dentures, no hoarseness, no swallowing difficulties, no hearing loss, no ear infection(s), no nose bleeds. Cardiovascular: normal blood pressure, no chest pain, regular heartbeat, no heart murmur. Respiratory: no shortness of breath, no cough, no asthma, no wheezing. Gastrointestinal: no nausea, no vomiting, no diarrhea, no constipation, no blood in stool, no change in bowel habits, no abdominal pain, no hepatitis. Genitourinary: no kidney stones, no urine infection, no dysuria. Musculoskeletal: no pain, no weakness. Skin: no changing moles, no rash, no skin lumps. Neurologic: no seizures, no epilepsy, no headache. Psychiatric: no emotional or psychiatric problem. Heme/Lymph: no bleeding problems, no anemia, no blood clots, no transfusions. Allergy/Immunologic: no swollen lymph nodes/glands, no IV drug abuse. Other: Additional ROS info: Except as noted in the above Review of Systems and in the History of Present Illness, all other systems have been reviewed and are negative or noncontributory. Physical Exam Vitals & Measurements HR: 66(Peripheral) RR: 16 BP: 107/69 HT: 76 in HT: 193 cm WT: 90.5 kg WT: 199.1 lb BMI: 24.3 HEENT: normal conjunctiva, sclera clear, no scleral icterus, EOM intact, PERRLA, oral mucosa moist without lesions. Neck: trachea midline, no mass, symmetric, no thyromegaly or nodules, no adenopathy Respiratory: lungs CTA, respirations non labored. Cardiovascular: regular rate and rhythm, no murmur, no pedal edema or varicosities. Gastrointestinal: soft, non distended, no tenderness, no masses, no palpable hernias, diastasis recti no, no hepatosplenomegaly; normal bs Lymphatic: no cervical adenopathy, no axillary adenopathy, no inguinal adenopathy. Musculoskeletal: normal gait, digits and nails without infection, nodes, cyanosis, clubbing. Skin: no rashes, no lesions, no ulcers, no subcutaneous nodules, induration. Psychiatric/Neuro: oriented to time, place, person, judgement normal, affect appropriate for age, insight intact, no focal deficits. Tests: labs reviewed, review of old records completed , Discussed surgical options, risks, and possible complications with patient. Assessment/Plan 1. Fecal occult blood test positive (R19.5: Other fecal abnormalities) plan EGD under anesthesia for further evaluation, informed consent obtained. 2. Chronic GERD (K21.9: Gastro-esophageal reflux disease without esophagitis) see # 1 3. Iron deficiency anemia (D50.9: Iron deficiency anemia, unspecified) see # 1 Follow-up No qualifying data available Problem List/Past Medical History Ongoing Acute combined systolic and diastolic heart failure.. Anemia Anemia Anxiety CAD (coronary artery disease) Chronic fatigue syndrome Chronic GERD Chronic ulcer of foot Diabetes Diabetic neuropathy Diastolic dysfunction Edema of lower extremity End-stage renal disease Erectile dysfunction Essential hypertension Fecal occult blood test positive Gastroesophageal reflux disease History of TX (myocardial infarction) History of osteomyelitis Hypercholesterolemia Hyperlipidemia Hyperparathyroidism Hypothyroidism Iron deficiency anemia Left ventricular systolic dysfunction Mitral valve regurgitation Multiple nodules of lung Peritoneal dialysis status Positive occult stool blood test Vitamin D de (more content not included)... [facility] Comment on above: Result Comment: Elec tronically Signed By: ML BATISTA, Ashutosh Love\Date and Time Signed: 09/16/23 16:05 EDT 06-11-2022 History and physi dandre note Note Date/Time June 11, 2022 6:58pm [facility] [address] [place] [address] Hospitalist H&P Signed Patient: Gopal Yates Jr MR#: [id number] : 1965 Acct:[id number] Age/Sex: 56 / M Adm Date: 3 Loc: ER Room: Type: [facility] ER Attending Dr: Copies to: MD [...] with his assistance. Has been following with paintings conservator Dr. Griggs, took culture few days ago [...] cardiac cath 2019 Family History Father Heart failure Heart attack [...] % (Auto) 3.2 % (.) 06/11/22 16:06 [place] % (Auto) 7.2 % (.) 06/11/22 16:06 Eos % (Auto) 2.0 % (.) 06/11/22 16:06 Baso % (Auto) 0.5 % (.) 06/11/22 16:06 Nucleat RBC Rel Count 0.0 /100 WBC (0-0.5) 06/11/22 16:06 Neut # (Auto) 8.9 x10E3/uL (1.8-7.7) H 06/11/22 16:06 Lymph # (Auto) 0.3 x10E3/uL (1.00-4.8) L 06/11/22 16:06 [place] # (Auto) 0.7 x10E3/uL (0.0-0.8) 06/11/22 16:06 [...] pH 5.5 (5.0-9.0) 06/11/22 16:28 Ur Specific [place] 1.014 (1.001-1.030) 06/11/22 16:28 Urine Protein 300 [...] Physician Documented By: Caleb Farrar MD 06/11/22 56 Signed By: <Electronically signed by Caleb Farrar MD> 06/11/221940 [facility] Work Phone: 1(607) 816-628403-20-2023 Miscellaneous Notes* Telephone Encounter - Liset Mosley [...] cancelled. Krissy Mirza RN [facility] Progress note Author Yvonne Barboza [facility] May 25, 2022 11:28am Note Date/Time May 25, 2022 10:3 6am [facility] [address] [place] [address] Nephrology Progress Note Signed Patient: Gopal Yates Jr MR#: [id number] : 1965 Acct:[id number] Age/Sex: 56 / M Adm Date: 3 Loc: Room: [address] [place] [address] Type: ADM IN Attending Dr: Scotty Kahn [...] been following with hematology clinic here in [facility] for CAROL injection. 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 Musculoskeletal: No joint [...] 2 Mg Tablet) 2 mg PO DAILY [facility] Stop: 05/21/23 08:59 Last Admin: 05/25/22 08:30 Dose: 2 mg Carvedilol (Carvedilol 12.5 Mg Tablet) 37.5 mg PO BID.WITH.MEALS [facility] Stop: 05/20/23 16:59 Last Admin: 05/25/22 08:30 Dose: 37.5 mg Cyproheptadine HCl (Cyproheptadine 4 Mg Tablet) 4 mg PO BID [facility] Stop: 05/23/23 20:59 Last Admin: 05/25/22 08:30 Dose: 4 mg Ezetimibe (Ezetimibe 10 Mg Tablet) 10 mg PO DAILY [facility] Stop: 05/21/23 08:59 Last Admin: 05/25/22 08:30 Dose: 10 mg Hydralazine HCl (Hydralazine 50 Mg Tablet) 50 mg PO TID [facility] Stop: 05/20/23 13:59 Last Admin: 05/25/22 08:30 Dose: 50 mg Piperacillin Sod/Tazobactam Sod (Zosyn 2.25gm) 2.25 gm in 100 mls @ 200 mls/hr IV Q6H [facility] Last Admin: 05/25/22 05:05 Dose: 200 mls/hr Insulin Glargine (Insulin Glargine 300 Units/3 Ml Insuln.Pen) 16 units SUBCUT QAM [facility] Stop: 05/21/23 08:59 Last Admin: 05/25/22 08:31 Dose: 16 units Isosorbide Dinitrate (Isosorbide Dinitrate 10 Mg Tablet) 10 mg PO TID [facility] Stop: 05/20/23 13:59 Last Admin: 05/25/22 08:30 Dose: 10 mg Levothyroxine Sodium (Levothyroxine 100 Mcg Tablet) 100 mcg PO DAILY@0630 [facility] Stop: 05/21/23 06:29 Last Admin: 05/25/22 05:34 Dose: Not Given Liothyronine Sodium (Liothyronine 5 Mcg Tablet) 10 mcg PO DAILY [facility] Stop: 05/21/23 08:59 Last Admin: 05/25/22 08:31 Dose: 10 mcg Multivitamins (Multivitamin 1 Tab Tablet) 1 tab PO DAILY [facility] Stop: 05/21/23 08:59 Last Admin: 05/25/22 08:31 Dose: 1 tab Nifedipine (Nifedipine Er.24hr 30 Mg Tab.Er.24) 30 mg PO BID [facility] Stop: 05/20/23 20:59 Last Admin: 05/25/22 08:30 Dose: 30 mg Ondansetron HCl (Ondansetron 4 Mg/2 Ml Vial) 4 mg IV-PUSH Q8H PRN PRN Reason: Nausea And Vomiting Stop: 05/20/23 13:39 Oxycodone HCl (Oxycodone Ir 5 Mg Tablet) 5 mg PO Q6H PRN PRN Reason: Pain Scale 4 - 7 Pantoprazole Sodium (Pantoprazole 40 Mg Tablet.Dr) 40 mg PO BID [facility] Stop: 05/20/23 20:59 Last Admin: 05/25/22 08:31 Dose: 40 mg Potassium Chloride (Potassium Chloride Er 20 Meq Tab.Er.Prt) 40 meq PO DAILY PRN PRN Reason: Hypokalemia Stop: 05/20/23 13:39 Sodium Bicarbonate (Sodium Bicarbonate 650 Mg Tablet) 1,300 mg PO BID [facility] Stop: 05/20/23 20:59 Last Admin: 05/25/22 08:30 [...] been following with hematology clinic here in [facility] for CAROL injection . Patient missed the last appointment. Patient received 1 unit of RBC May 21. Patient also was given 1 dose of Uvidzy35,000 units May 21 . No need for [...] following Documented By: Yvonne Barboza MD 05/25/22 1034 Signed By: <Electronically signed by Yvonne Barboza MD> 05/25/22 1122 [facility] Work Phone: [phone] 323-860103-06-2023 Progress note Author Ashutosh Thomas [facility] May 25, 2022 11:21am Note Date/Time May 25, 2022 11:2 2am [facility] [address] [place] [address] Infect. Disease Progress Note Signed Patient: Gpoal Yates Jr MR#: [id number] : 1965 Acct:[id number] Age/Sex: 56 / M Adm Date: 3 Loc: Room: [address] [place] [address] Type: ADM IN Attending Dr: Scotty Kahn [...] 12.5 Mg Tablet) 37.5 mg PO BID.WITH.MEALS [facility] Stop: 05/20/23 16:59 Last Admin: 05/25/22 08:30 Dose: 37.5 mg Cyproheptadine HCl (Cyproheptadine 4 Mg Tablet) 4 mg PO BID [facility] Stop: 05/23/23 20:59 Last Admin: 05/25/22 08:30 Dose: 4 mg Ezetimibe (Ezetimibe 10 Mg Tablet) 10 mg PO DAILY [facility] Stop: 05/21/23 08:59 Last Admin: 05/25/22 08:30 Dose: 10 mg Hydralazine HCl (Hydralazine 50 Mg Tablet) 50 mg PO TID [facility] Stop: 05/20/23 13:59 Last Admin: 05/25/22 08:30 Dose: 50 mg Piperacillin Sod/Tazobactam Sod (Zosyn 2.25gm) 2.25 gm in 100 mls @ 200 mls/hr IV Q6H [facility] Last Admin: 05/25/22 11:06 Dose: 200 mls/hr Insulin Glargine (Insulin Glargine 300 Units/3 Ml Insuln.Pen) 16 units SUBCUT QAM [facility] Stop: 05/21/23 08:59 Last Admin: 05/25/22 08:31 Dose: 16 units Isosorbide Dinitrate (Isosorbide Dinitrate 10 Mg Tablet) 10 mg PO TID [facility] Stop: 05/20/23 13:59 Last Admin: 05/25/22 08:30 Dose: 10 mg Levothyroxine Sodium (Levothyroxine 100 Mcg Tablet) 100 mcg PO DAILY@0630 [facility] Stop: 05/21/23 06:29 Last Admin: 05/25/22 05:34 Dose: Not Given Liothyronine Sodium (Liothyronine 5 Mcg Tablet) 10 mcg PO DAILY [facility] Stop: 05/21/23 08:59 Last Admin: 05/25/22 08:31 Dose: 10 mcg Multivitamins (Multivitamin 1 Tab Tablet) 1 tab PO DAILY [facility] Stop: 05/21/23 08:59 Last Admin: 03/06/23 08:31 Dose: 1 tab Nifedipine (Nifedipine Er.24hr 30 Mg Tab.Er.24) 30 mg PO BID [facility] Stop: 05/20/23 20:59 Last Admin: 05/25/22 08:30 Dose: 30 mg Ondansetron HCl (Ondansetron 4 Mg/2 Ml Vial) 4 mg IV-PUSH Q8H PRN PRN Reason: Nausea And Vomiting Stop: 05/20/23 13:39 Oxycodone HCl (Oxycodone Ir 5 Mg Tablet) 5 mg PO Q6H PRN PRN Reason: Pain Scale 4 - 7 Pantoprazole Sodium (Pantoprazole 40 Mg Tablet.Dr) 40 mg PO BID [facility] Stop: 05/20/23 20:59 Last Admin: 05/25/22 08:31 Dose: 40 mg Potassium Chloride (Potassium Chloride Er 20 Meq Tab.Er.Prt) 40 meq PO DAILY PRN PRN Reason: Hypokalemia Stop: 05/20/23 13:39 Sodium Bicarbonate (Sodium Bicarbonate 650 Mg Tablet) 1,300 mg PO BID [facility] Stop: 05/20/23 20:59 Last Admin: 05/25/22 08:30 [...] (1,000 Units) Tablet) 50 mcg PO DAILY [facility] Stop: 05/21/23 08:59 Last Admin: 05/25/22 08:30 [...] my standpoint Documented By: Ashutosh Thomas MD 05/25/221119 Signed By: <Electronically signed by MD Ashutosh Thomas> 05/25/22 1121 [facility] Work Phone: [phone]) 784-100903-06-2023 Discharge summary Author Scotty Kahn [facility] May 25, 2022 5:23pm Note Date/Time May 25, 2022 10:3 0am [facility] [address] [place] [address] Discharge Summary Signed Patient: Gopal Yates Jr MR#: [id number] : 1965 Acct:[id number] Age/Sex: 56 / M Adm Date: 3 Loc: Room: [address] [place] [address]: Scotty Kahn DO Copies to: [...] of CKD stage 5, CAD status post TX, HFpEF, HTN, HLD, insulin-dependent DM type II, hypothyroidism was sent to the emergency department by his paintings conservator due to worsening right lateral foot ulcer. [...] % (Auto) 75.9, Lymph % (Auto) 9.2, [place] % (Auto) 10.5, Eos % (Auto) 3.4, Baso % (Auto) 1.0, Nucleat RBC Rel Count 0.0, Neut # (Auto) 5.8, Lymph # (Auto) 0.7 L, [place] # (Auto) 0.8, Eos # (Auto) 0.3, [...] Patient Ordered By: Ashutosh Thomas Follow Up: [facility] [Outside] - 05/27/22 2:30 pm [...] <Electronically signed by DO NADIR Velez> 05/25/22 1558 [facility] Work Phone: 1(207) 827-249803-05-2023 Progress note Author Cristobal Butts [facility] May 24, 2022 12:26pm Note Date/Time May 24, 2022 12:2 6pm [facility] [address] [place] [address] Nephrology Progress Note Signed Patient: Gopal Yates Jr MR#: [id number] : 1965 Acct:[id number] Age/Sex: 56 / M Adm Date: 3 Loc: Room: [address] [place] [address] Type: ADM IN Attending Dr: Salvador Alonso [...] been following with hematology clinic here in [facility] for CAROL injection. Patient missed her last [...] Intake and Output I&O: Intake & Output 03/02/23 03/03/23 03/04/23 03/05/23 23:59 23:59 23:59 23:59 Intake Total 900 [...] 2 Mg Tablet) 2 mg PO DAILY [facility] Stop: 05/21/23 08:59 Last Admin: 05/24/22 08:56 Dose: 2 mg Carvedilol (Carvedilol 12.5 Mg Tablet) 37.5 mg PO BID.WITH.MEALS [facility] Stop: 05/20/23 16:59 Last Admin: 05/24/22 08:56 Dose: 37.5 mg Cyproheptadine HCl (Cyproheptadine 4 Mg Tablet) 4 mg PO BID [facility] Stop: 05/23/23 20:59 Last Admin: 05/24/22 08:55 Dose: 4 mg Ezetimibe (Ezetimibe 10 Mg Tablet) 10 mg PO DAILY [facility] Stop: 05/21/23 08:59 Last Admin: 05/24/22 08:56 Dose: 10 mg Hydralazine HCl (Hydralazine 50 Mg Tablet) 50 mg PO TID [facility] Stop: 05/20/23 13:59 Last Admin: 05/24/22 08:56 Dose: 50 mg Piperacillin Sod/Tazobactam Sod (Zosyn 2.25gm) 2.25 gm in 100 mls @ 200 mls/hr IV Q6H [facility] Last Admin: 05/24/22 11:49 Dose: 200 mls/hr Insulin Glargine (Insulin Glargine 300 Units/3 Ml Insuln.Pen) 16 units SUBCUT QAM [facility] Stop: 05/21/23 08:59 Last Admin: 05/24/22 08:56 Dose: 16 units Isosorbide Dinitrate (Isosorbide Dinitrate 10 Mg Tablet) 10 mg PO TID [facility] Stop: 05/20/23 13:59 Last Admin: 05/24/22 08:55 Dose: 10 mg Levothyroxine Sodium (Levothyroxine 100 Mcg Tablet) 100 mcg PO DAILY@0630 [facility] Stop: 05/21/23 06:29 Last Admin: 05/24/22 05:44 Dose: 100 mcg Liothyronine Sodium (Liothyronine 5 Mcg Tablet) 10 mcg PO DAILY [facility] Stop: 05/21/23 08:59 Last Admin: 05/24/22 08:56 Dose: 10 mcg Multivitamins (Multivitamin 1 Tab Tablet) 1 tab PO DAILY [facility] Stop: 05/21/23 08:59 Last Admin: 05/24/22 08:56 Dose: 1 tab Nifedipine (Nifedipine Er.24hr 30 Mg Tab.Er.24) 30 mg PO BID [facility] Stop: 05/20/23 20:59 Last Admin: 05/24/22 08:55 Dose: 30 mg Ondansetron HCl (Ondansetron 4 Mg/2 Ml Vial) 4 mg IV-PUSH Q8H PRN PRN Reason: Nausea And Vomiting Stop: 05/20/23 13:39 Oxycodone HCl (Oxycodone Ir 5 Mg Tablet) 5 mg PO Q6H PRN PRN Reason: Pain Scale 4 - 7 Pantoprazole Sodium (Pantoprazole 40 Mg Tablet.Dr) 40 mg PO BID [facility] Stop: 05/20/23 20:59 Last Admin: 05/24/22 08:56 Dose: 40 mg Potassium Chloride (Potassium Chloride Er 20 Meq Tab.Er.Prt) 40 meq PO DAILY PRN PRN Reason: Hypokalemia Stop: 05/20/23 13:39 Sodium Bicarbonate (Sodium Bicarbonate 650 Mg Tablet) 1,300 mg PO BID [facility] Stop: 05/20/23 20:59 Last Admin: 05/24/22 08:56 [...] been following with hematology clinic here in [facility] for CAROL injection . Patient missed the last appointment. Patient received 1 unit of RBC May 21. Patient also was given 1 dose of Epuiom91,000 units May 21 . Hemoglobin is 8 [...] is following Documented By: Cristobal Butts MD 05/24/225 Signed By: <Electronically signed by Cristobal Butts MD> 05/24/22 6174 [facility] Work Phone: 1(355) 568-815903-05-2023 Progress note Author Salvador Alonso [facility] May 24, 2022 12:12pm Note Date/Time May 24, 2022 12:1 2pm [facility] [address] [place] [address] Hospitalist Progress Note Signed Patient: Gopal Yates Jr MR#: [id number] : 1965 Acct:[id number] Age/Sex: 56 / M Adm Date: 3 Loc: Room: [address] [place] [address] Type: ADM IN Attending Dr: Salvador Alonso [...] signed by Salvador Alonso MD> 05/24/22 1212 [facility] Work Phone: [phone]) 501-938303-04-2023 Progress note Author Cirstobal Butts [facility] May 23, 2022 1:42pm Note Date/Time May 23, 2022 1:40 pm [facility] [address] [place] [address] Nephrology Progress Note Signed Patient: oGpal Yates Jr MR#: [id number] : 1965 Acct:[id number] Age/Sex: 56 / M Adm Date: 3 Loc: Room: [address] [place] [address] Type: ADM IN Attending Dr: Salvador Alonso [...] been following with hematology clinic here in [facility] for CAROL injection. Patient missed her last [...] 2 Mg Tablet) 2 mg PO DAILY [facility] Stop: 05/21/23 08:59 Last Admin: 05/23/22 09:36 Dose: 2 mg Carvedilol (Carvedilol 12.5 Mg Tablet) 37.5 mg PO BID.WITH.MEALS [facility] Stop: 05/20/23 16:59 Last Admin: 05/23/22 09:35 Dose: 37.5 mg Cyproheptadine HCl (Cyproheptadine 4 Mg Tablet) 4 mg PO DAILY [facility] Stop: 05/21/23 08:59 Last Admin: 05/23/22 09:36 Dose: 4 mg Ezetimibe (Ezetimibe 10 Mg Tablet) 10 mg PO DAILY [facility] Stop: 05/21/23 08:59 Last Admin: 05/23/22 09:35 Dose: 10 mg Hydralazine HCl (Hydralazine 50 Mg Tablet) 50 mg PO TID [facility] Stop: 05/20/23 13:59 Last Admin: 05/23/22 09:36 Dose: 50 mg Piperacillin Sod/Tazobactam Sod (Zosyn 2.25gm) 2.25 gm in 100 mls @ 200 mls/hr IV Q6H [facility] Last Admin: 05/23/22 11:31 Dose: 200 mls/hr Insulin Glargine (Insulin Glargine 300 Units/3 Ml Insuln.Pen) 16 units SUBCUT QAM [facility] Stop: 05/21/23 08:59 Last Admin: 05/23/22 09:38 Dose: 16 units Isosorbide Dinitrate (Isosorbide Dinitrate 10 Mg Tablet) 10 mg PO TID [facility] Stop: 05/20/23 13:59 Last Admin: 05/23/22 09:37 Dose: 10 mg Levothyroxine Sodium (Levothyroxine 100 Mcg Tablet) 100 mcg PO DAILY@0630 [facility] Stop: 05/21/23 06:29 Last Admin: 05/23/22 05:34 Dose: 100 mcg Liothyronine Sodium (Liothyronine 5 Mcg Tablet) 10 mcg PO DAILY [facility] Stop: 05/21/23 08:59 Last Admin: 05/23/22 09:35 Dose: 10 mcg Multivitamins (Multivitamin 1 Tab Tablet) 1 tab PO DAILY [facility] Stop: 05/21/23 08:59 Last Admin: 05/23/22 09:36 Dose: 1 tab Nifedipine (Nifedipine Er.24hr 30 Mg Tab.Er.24) 30 mg PO BID [facility] Stop: 05/20/23 20:59 Last Admin: 05/23/22 09:36 Dose: 30 mg Ondansetron HCl (Ondansetron 4 Mg/2 Ml Vial) 4 mg IV-PUSH Q8H PRN PRN Reason: Nausea And Vomiting Stop: 05/20/23 13:39 Oxycodone HCl (Oxycodone Ir 5 Mg Tablet) 5 mg PO Q6H PRN PRN Reason: Pain Scale 4 - 7 Pantoprazole Sodium (Pantoprazole 40 Mg Tablet.Dr) 40 mg PO BID [facility] Stop: 05/20/23 20:59 Last Admin: 05/23/22 09:35 [...] been following with hematology clinic here in [facility] for CAROL injection . Patient missed the last appointment. Patient received 1 unit of RBC May 21. Patient also was given 1 dose of Cudhiw65,000 units May 21 . Continue to monitor H&H (5) Osteomyelitis of right foot: Plan: Right foot MRI findings as as in HPI. Patient currently covered by vancomycin and Zosyn IV. Status post amputation of the right fourth toe with I&D of right foot abscess with wound VAC placement. Pediatric service is following Documented By: Cristobal Butts MD 05/23/22 9851 Signed By: <Electronically signed by Cristobal Butts MD> 05/23/22 1342 [facility] Work Phone: [phone]) [phone] Progress note Author Eddy Griggs [facility] May 23, 2022 10:48am Note Date/Time May 23, 2022 10:4 8am [facility] [address] [place] [address] Podiatry Progress Note Signed Patient: Gopal Yates Jr MR#: [id number] : 1965 Acct:[id number] Age/Sex: 56 / M Adm Date: 3 Loc: Room: [address] [place] [address] Type: ADM IN Attending Dr: Salvador Alonso [...] <Electronically signed by HARRY Griggs> 05/23/22 1048 [facility] Work Phone: [phone]) [phone] Progress note Author Salvador Alonso [facility] May 23, 2022 10:32am Note Date/Time May 23, 2022 10:3 2am [facility] [address] [place] [address] Hospitalist Progress Note Signed Patient: Gopal Yates Jr MR#: [id number] : 1965 Acct:[id number] Age/Sex: 56 / M Adm Date: 3 Loc: Room: [address] [place] [address] Type: ADM IN Attending Dr: Salvador Alonso [...] signed by Salvador Alonso MD> 05/23/22 1032 [facility] Work Phone: [phone] Progress note Author Salvador Alonso [facility] May 22, 2022 2:54pm Note Date/Time May 22, 2022 2:55 pm [facility] [address] [place] [address] Hospitalist Progress Note Signed Patient: Gopal Yates Jr MR#: [id number] : 1965 Acct:[id number] Age/Sex: 56 / M Adm Date: 3 Loc: Room: [address] [place] [address] Type: ADM IN Attending Dr: Salvador Alonso [...] Tablet PO 05/20/23 13:59 50 mg TID [facility] Administration Piperacillin Sod/Tazobactam Sod 2.25 gm in 100 mls @ 200 mls/hr 05/21/22 11:30 05/22/22 11:31 Zosyn 2.25gm IV 200 mls/hr Q6H [facility] Administration Insulin Glargine 16 units 05/21/22 09:00 05/22/22 08:34 Insulin Glargine 300 Units/3 Ml Insuln.Pen SUBCUT 05/21/23 08:59 16 units QAM [facility] Administration Isosorbide Dinitrate 10 mg 05/20/22 14:00 05/22/22 08:34 Isosorbide Dinitrate 10 Mg Tablet PO 05/20/23 13:59 10 mg TID [facility] Administration Levothyroxine Sodium 100 mcg 05/21/22 06:30 05/22/22 06:05 Levothyroxine 100 Mcg Tablet PO 05/21/23 06:29 100 mcg DAILY@0630 [facility] Administration Liothyronine Sodium 10 mcg 05/21/22 09:00 05/22/22 08:33 Liothyronine 5 Mcg Tablet PO 05/21/23 08:59 10 mcg DAILY [facility] Administration Multivitamins 1 tab 05/21/22 09:00 05/22/22 08:33 Multivitamin 1 Tab Tablet PO 05/21/23 08:59 1 tab DAILY [facility] Administration Nifedipine 30 mg 05/20/22 21:00 05/22/22 08:34 Nifedipine Er.24hr 30 Mg Tab.Er.24 PO 05/20/23 20:59 30 mg BID [facility] Administration Ondansetron HCl 4 mg 05/20/22 13:40 [...] code Documented By: Salvador Alonso MD 05/22/22 1453 Signed By: <Electronically signed by Salvador Alonso MD> 05/22/22 1454 [facility] Work Phone: 1([phone]) [phone] Progress note Author Cristobal Beckie [facility] May 22, 2022 1:15pm Note Date/Time May 22, 2022 1:16 pm [facility] [address] [place] [address] Nephrology Progress Note Signed Patient: Gopal Yates Jr MR#: [id number] : 1965 Acct:[id number] Age/Sex: 56 / M Adm Date: 3 Loc: Room: [address] [place] [address] Type: ADM IN Attending Dr: Salvador Alonso [...] been following with hematology clinic here in [facility] for CAROL injection. Patient missed her last [...] 2 Mg Tablet) 2 mg PO DAILY [facility] Stop: 05/21/23 08:59 Last Admin: 05/22/22 08:34 Dose: 2 mg Carvedilol (Carvedilol 12.5 Mg Tablet) 37.5 mg PO BID.WITH.MEALS [facility] Stop: 05/20/23 16:59 Last Admin: 05/22/22 08:34 Dose: 37.5 mg Cyproheptadine HCl (Cyproheptadine 4 Mg Tablet) 4 mg PO DAILY [facility] Stop: 05/21/23 08:59 Last Admin: 05/22/22 08:33 Dose: 4 mg Ezetimibe (Ezetimibe 10 Mg Tablet) 10 mg PO DAILY [facility] Stop: 05/21/23 08:59 Last Admin: 05/22/22 08:34 Dose: 10 mg Hydralazine HCl (Hydralazine 50 Mg Tablet) 50 mg PO TID [facility] Stop: 05/20/23 13:59 Last Admin: 05/22/22 08:34 Dose: 50 mg Piperacillin Sod/Tazobactam Sod (Zosyn 2.25gm) 2.25 gm in 100 mls @ 200 mls/hr IV Q6H [facility] Last Admin: 05/22/22 11:31 Dose: 200 mls/hr Lactated Ringer's (Lactated Ringers) 1,000 mls @ 20 mls/hr IV .Q24H [facility] Stop: 05/22/22 13:54 Last Admin: 05/21/22 15:44 Dose: 20 mls/hr Insulin Glargine (Insulin Glargine 300 Units/3 Ml Insuln.Pen) 16 units SUBCUT QAM [facility] Stop: 05/21/23 08:59 Last Admin: 05/22/22 08:34 Dose: 16 units Isosorbide Dinitrate (Isosorbide Dinitrate 10 Mg Tablet) 10 mg PO TID [facility] Stop: 05/20/23 13:59 Last Admin: 05/22/22 08:34 Dose: 10 mg Levothyroxine Sodium (Levothyroxine 100 Mcg Tablet) 100 mcg PO DAILY@0630 [facility] Stop: 05/21/23 06:29 Last Admin: 05/22/22 06:05 Dose: 100 mcg Liothyronine Sodium (Liothyronine 5 Mcg Tablet) 10 mcg PO DAILY [facility] Stop: 05/21/23 08:59 Last Admin: 05/22/22 08:33 [...] 40 Mg Tablet.Dr) 40 mg PO BID [facility] Stop: 05/20/23 20:59 Last Admin: 05/22/22 08:34 Dose: 40 mg Potassium Chloride (Potassium Chloride Er 20 Meq Tab.Er.Prt) 40 meq PO DAILY PRN PRN Reason: Hypokalemia Stop: 05/20/23 13:39 Sodium Bicarbonate (Sodium Bicarbonate 650 Mg Tablet) 1,300 mg PO BID [facility] Stop: 05/20/23 20:59 Last Admin: 05/22/22 08:33 [...] (1,000 Units) Tablet) 50 mcg PO DAILY [facility] Stop: 05/21/23 08:59 Last Admin: 05/22/22 08:33 [...] been following with hematology clinic here in [facility]. Patient missed the last appointment. Patient received [...] <Electronically signed by Cristobal Butts MD> 05/22/22 1315 [facility] Work Phone: [phone] Progress note Author Ashutosh Thomas [facility] May 22, 2022 12:21pm Note Date/Time May 22, 2022 12:2 1pm [facility] [address] [place] [address] Infect. Disease Progress Note Signed Patient: Gopal Yates Jr MR#: [id number] : 1965 Acct:[id number] Age/Sex: 56 / M Adm Date: 3 Loc: 3T Room: [address] [place] [address] Type: ADM IN Attending Dr: Salvador Alonso [...] 2 Mg Tablet) 2 mg PO DAILY [facility] Stop: 05/21/23 08:59 Last Admin: 05/22/22 08:34 Dose: 2 mg Carvedilol (Carvedilol 12.5 Mg Tablet) 37.5 mg PO BID.WITH.MEALS [facility] Stop: 05/20/23 16:59 Last Admin: 05/22/22 08:34 Dose: 37.5 mg Cyproheptadine HCl (Cyproheptadine 4 Mg Tablet) 4 mg PO DAILY [facility] Stop: 05/21/23 08:59 Last Admin: 05/22/22 08:33 Dose: 4 mg Ezetimibe (Ezetimibe 10 Mg Tablet) 10 mg PO DAILY [facility] Stop: 05/21/23 08:59 Last Admin: 05/22/22 08:34 Dose: 10 mg Hydralazine HCl (Hydralazine 50 Mg Tablet) 50 mg PO TID [facility] Stop: 05/20/23 13:59 Last Admin: 05/22/22 08:34 Dose: 50 mg Piperacillin Sod/Tazobactam Sod (Zosyn 2.25gm) 2.25 gm in 100 mls @ 200 mls/hr IV Q6H [facility] Last Admin: 05/22/22 11:31 Dose: 200 mls/hr Lactated Ringer's (Lactated Ringers) 1,000 mls @ 20 mls/hr IV .Q24H [facility] Stop: 05/22/22 13:54 Last Admin: 05/21/22 15:44 Dose: 20 mls/hr Vancomycin HCl 1.25 gm/ (Dextrose) 275 mls @ 183.333 mls/hr IV ONCE [facility] Stop: 05/22/22 12:59 Insulin Glargine (Insulin Glargine 300 Units/3 Ml Insuln.Pen) 16 units SUBCUT QAM [facility] Stop: 05/21/23 08:59 Last Admin: 05/22/22 08:34 Dose: 16 units Isosorbide Dinitrate (Isosorbide Dinitrate 10 Mg Tablet) 10 mg PO TID [facility] Stop: 05/20/23 13:59 Last Admin: 05/22/22 08:34 Dose: 10 mg Levothyroxine Sodium (Levothyroxine 100 Mcg Tablet) 100 mcg PO DAILY@0630 [facility] Stop: 05/21/23 06:29 Last Admin: 05/22/22 06:05 Dose: 100 mcg Liothyronine Sodium (Liothyronine 5 Mcg Tablet) 10 mcg PO DAILY [facility] Stop: 05/21/23 08:59 Last Admin: 05/22/22 08:33 Dose: 10 mcg Multivitamins (Multivitamin 1 Tab Tablet) 1 tab PO DAILY [facility] Stop: 05/21/23 08:59 Last Admin: 05/22/22 08:33 Dose: 1 tab Nifedipine (Nifedipine Er.24hr 30 Mg Tab.Er.24) 30 mg PO BID [facility] Stop: 05/20/23 20:59 Last Admin: 05/22/22 08:34 Dose: 30 mg Ondansetron HCl (Ondansetron 4 Mg/2 Ml Vial) 4 mg IV-PUSH Q8H PRN PRN Reason: Nausea And Vomiting Stop: 05/20/23 13:39 Oxycodone HCl (Oxycodone Ir 5 Mg Tablet) 5 mg PO Q6H PRN PRN Reason: Pain Scale 4 - 7 Pantoprazole Sodium (Pantoprazole 40 Mg Tablet.Dr) 40 mg PO BID [facility] Stop: 05/20/23 20:59 Last Admin: 05/22/22 08:34 [...] signed by MD Ashutosh Thomas> 05/22/22 1221 [facility] Work Phone: [phone] Progress note Author Eddy Griggs [facility] May 22, 2022 8:23am Note Date/Time May 22, 2022 8:18 am [facility] [address] [place] [address] Podiatry Progress Note Signed Patient: Gopal Yates Jr MR#: [id number] : 1965 Acct:[id number] Age/Sex: 56 / M Adm Date: 3 Loc: Room: [address] [place] [address] Type: ADM IN Attending Dr: Salvador Alonso [...] foot. It has been very difficult getting [facility] secured for the patient due to his insurance. He again states that he would like to go to the [facility] center in order to have dressing changes, but Ipersonally called after his last hospitalization and due to their short staffingthey were not offering this service at this time. I advised that if we are not able to find a [facility] agency, patient may need to come to the infusion center for dresssing changes, but that does affect his healing due to the fact that he is going to be traveling with his foot down and this can affect his healing. We will wait on final OR cultures and try to arrange C prior to d/c. Podiatry will continue to [...] By: <Electronically signed by HARRY Griggs> 05/22/22822 [facility] Work Phone: 1([phone]) 443-201603-03-2023 Progress note Author Salvador [facility] May 21, 2022 11:00pm Note Date/Time May 21, 2022 11:0 0pm [facility] [address] [place] [address] Hospitalist Progress Note Signed Patient: Gopal Yates Jr MR#: [id number] : 1965 Acct:[id number] Age/Sex: 56 / M Adm Date: 3 Loc: 3T Room: [address] [place] [address] Type: ADM IN Attending Dr: Salvador Alonso [...] Tablet PO 05/21/23 08:59 Not Given DAILY [facility] Carvedilol 37.5 mg 05/20/22 17:00 05/21/22 19:39 Carvedilol 12.5 Mg Tablet PO 05/20/23 16:59 Not Given BID.WITH.MEALS [facility] Cyproheptadine HCl 4 mg 05/21/22 09:00 05/21/22 08:00 Cyproheptadine 4 Mg Tablet PO 05/21/23 08:59 Not Given DAILY [facility] Ezetimibe 10 mg 05/21/22 09:00 05/21/22 08:00 Ezetimibe 10 Mg Tablet PO 05/21/23 08:59 Not Given DAILY [facility] Hydralazine HCl 50 mg 05/20/22 14:00 05/21/22 22:25 Hydralazine 50 Mg Tablet PO 05/20/23 13:59 50 mg TID [facility] Administration Sodium Chloride 500 mls @ 20 [...] Insuln.Pen SUBCUT 05/21/23 08:59 Not Given QAM [facility] Isosorbide Dinitrate 10 mg 05/20/22 14:00 05/21/22 22:25 Isosorbide Dinitrate 10 Mg Tablet PO 05/20/23 13:59 10 mg TID [facility] Administration Levothyroxine Sodium 100 mcg 05/21/22 06:30 [...] code Documented By: Salvador Alonso MD 05/21/22 7886 Signed By: <Electronically signed by Salvador Alonso MD> 05/21/22 8852 [facility] Work Phone: [phone] 186-251403-02-2023 Consult note Author Cristobal Butts [facility] May 21, 2022 1:27pm Note Date/Time May 21, 2022 1:27 pm [facility] [address] [place] [address] Nephrology Consult Note Signed Patient: Gopal Yates Jr MR#: [id number] : 1965 Acct:[id number] Age/Sex: 56 / M Adm Date: 3 Loc: Room: [address] [place] [address] Type: ADM IN Attending Dr: Salvador Alonso MD Copies to: MD Cristobal Boles MD Douglas M Hoy, MD~ Providers Consult Date: 05/21/22 Requesting Provider: Salvador Alonso MD Primary Care Provider: Douglas Juárez MD [facility] Reason for Consult: Chronic kidney disease [...] been following with hematology clinic here in [facility] for CAROL injection. Patient missed her last appointment. Hemoglobin this morning 7.7 g deciliter. Kidney function remains at baseline with today serum creatinine 5.2 mmol/L and GFR 11 mm/min. BUN 72. Potassium 4.0. Serum bicarb 20 Review of Systems Review of Systems Review of systems: 12 system review is negative [facility] Vacc[facility] for [facility]-19?: Yes Medical History Anemia [...] 2 Mg Tablet) 2 mg PO DAILY [facility] Stop: 05/21/23 08:59 Last Admin: 05/21/22 08:00 Dose: Not Given Carvedilol (Carvedilol 12.5 Mg Tablet) 37.5 mg PO BID.WITH.MEALS [facility] Stop: 05/20/23 16:59 Last Admin: 05/21/22 07:52 Dose: 37.5 mg Cyproheptadine HCl (Cyproheptadine 4 Mg Tablet) 4 mg PO DAILY [facility] Stop: 05/21/23 08:59 Last Admin: 05/21/22 08:00 Dose: Not Given Ezetimibe (Ezetimibe 10 Mg Tablet) 10 mg PO DAILY [facility] Stop: 05/21/23 08:59 Last Admin: 05/21/22 08:00 Dose: Not Given Hydralazine HCl (Hydralazine 50 Mg Tablet) 50 mg PO TID [facility] Stop: 05/20/23 13:59 Last Admin: 05/21/22 08:00 Dose: Not Given Sodium Chloride (0.9 % Sodium Chloride) 500 mls @ 20 mls/hr IV PROTOCOL PRN PRN Reason: BLOOD TRANSFUSION Stop: 05/22/22 08:32 Piperacillin Sod/Tazobactam Sod (Zosyn 2.25gm) 2.25 gm in 100 mls @ 200 mls/hr IV Q6H [facility] Last Admin: 05/21/22 11:18 Dose: 200 mls/hr Insulin Glargine (Insulin Glargine 300 Units/3 Ml Insuln.Pen) 16 units SUBCUT QAM [facility] Stop: 05/21/23 08:59 Last Admin: 05/21/22 08:00 Dose: Not Given Isosorbide Dinitrate (Isosorbide Dinitrate 10 Mg Tablet) 10 mg PO TID [facility] Stop: 05/20/23 13:59 Last Admin: 05/21/22 08:00 Dose: Not Given Levothyroxine Sodium (Levothyroxine 100 Mcg Tablet) 100 mcg PO DAILY@0630 [facility] Stop: 05/21/23 06:29 Last Admin: 05/21/22 06:20 Dose: 100 mcg Liothyronine Sodium (Liothyronine 5 Mcg Tablet) 10 mcg PO DAILY [facility] Stop: 05/21/23 08:59 Last Admin: 05/21/22 08:00 Dose: Not Given Multivitamins (Multivitamin 1 Tab Tablet) 1 tab PO DAILY [facility] Stop: 05/21/23 08:59 Last Admin: 05/21/22 08:00 Dose: Not Given Nifedipine (Nifedipine Er.24hr 30 Mg Tab.Er.24) 30 mg PO BID [facility] Stop: 05/20/23 20:59 Last Admin: 05/21/22 08:01 Dose: Not Given Ondansetron HCl (Ondansetron 4 Mg/2 Ml Vial) 4 mg IV-PUSH Q8H PRN PRN Reason: Nausea And Vomiting Stop: 05/20/23 13:39 Oxycodone HCl (Oxycodone Ir 5 Mg Tablet) 5 mg PO Q6H PRN PRN Reason: Pain Scale 4 - 7 Pantoprazole Sodium (Pantoprazole 40 Mg Tablet.Dr) 40 mg PO BID [facility] Stop: 05/20/23 20:59 Last Admin: 05/21/22 08:01 Dose: Not Given Potassium Chloride (Potassium Chloride Er 20 Meq Tab.Er.Prt) 40 meq PO DAILY PRN PRN Reason: Hypokalemia Stop: 05/20/23 13:39 Sodium Bicarbonate (Sodium Bicarbonate 650 Mg Tablet) 1,300 mg PO BID [facility] Stop: 05/20/23 20:59 Last Admin: 05/21/22 08:01 [...] (1,000 Units) Tablet) 50 mcg PO DAILY [facility] Stop: 05/21/23 08:59 Last Admin: 05/21/22 08:00 [...] Flynn Bradley M.D.05/21/2022 10:03 AM Dictation Location: [place] [address] Any impression(s) listed above is documentation that [...] been following with hematology clinic here in [facility]. Patient missed the last appointment. Patient is [...] PM Documented By: Cristobal Butts MD 05/21/22 131 Signed By: <Electronically signed by Cristobal Butts MD> 05/21/22 132 [facility] Work Phone: [phone]) [phone] Consult note Author PHILLIP Luis [facility] May 21, 2022 12:02pm Note Date/Time May 21, 2022 11:5 8am [facility] [address] [place] [address] Podiatry Consult Note Signed Patient: Gopal Yates Jr MR#: [id number] : 1965 Acct:[id number] Age/Sex: 56 / M Adm Date: 3 Loc: Room: [address] [place] [address] Type: ADM IN Attending Dr: Salvador Alonso MD Copies to: MD Douglas Boles MD Eugene R Kubitz,DPM, MS, CWS~ HPI Data of Consult Consult Date: 05/20/22 Requesting Physician: Salvador Aolnso MD Primary Care Provider: Douglas Juárez MD [...] unspecified Documented By: Primo Luis DPM, , CWNorman 05/14 1153 Signed By: <Electronically signed by HARRY Luis> 05/21/22 1202 [facility] Work Phone: [phone]) [phone] Consult note Author Ashutosh Thomas [facility] May 21, 2022 10:40am Note Date/Time May 21, 2022 10:0 4am [facility] [address] [place] [address] Infect. Disease Consult Note Signed Patient: Gopal Yates Jr MR#: [id number] : 1965 Acct:[id number] Age/Sex: 56 / M Adm Date: 3 Loc: Room: [address] [place] [address] Type: ADM IN Attending Dr: Salvador Alonso [...] sent to the ED yesterday by his paintings conservator, Dr. Griggs, because his right foot wound continued to show signs of infection. The patient recently had resection of his right fifth digit on 05/07 and completed a 10-day course of Augmentin. The patient states that his wound continued to drain after the operation and that his paintings conservator has scheduled surgery for today. He continues on IV vancomycin, which was started in the ED. The patient has past medical history significant for CKD stage 5 for which he isscheduled to start dialysis and have a PD catheter placed next week, CAD post?TX, HFpEF, hypertension, hyperlipidemia, insulin-dependent T2DM, and hypothyroidism. [...] 12.5 Mg Tablet) 37.5 mg PO BID.WITH.MEALS [facility] Stop: 05/20/23 16:59 Last Admin: 05/21/22 07:52 Dose: 37.5 mg Cyproheptadine HCl (Cyproheptadine 4 Mg Tablet) 4 mg PO DAILY [facility] Stop: 05/21/23 08:59 Last Admin: 05/21/22 08:00 Dose: Not Given Ezetimibe (Ezetimibe 10 Mg Tablet) 10 mg PO DAILY [facility] Stop: 05/21/23 08:59 Last Admin: 05/21/22 08:00 Dose: Not Given Hydralazine HCl (Hydralazine 50 Mg Tablet) 50 mg PO TID [facility] Stop: 05/20/23 13:59 Last Admin: 05/21/22 08:00 Dose: Not Given Sodium Chloride (0.9 % Sodium Chloride) 500 mls @ 20 mls/hr IV PROTOCOL PRN PRN Reason: BLOOD TRANSFUSION Stop: 05/22/22 08:32 Insulin Glargine (Insulin Glargine 300 Units/3 Ml Insuln.Pen) 16 units SUBCUT QAM [facility] Stop: 05/21/23 08:59 Last Admin: 05/21/22 08:00 Dose: Not Given Isosorbide Dinitrate (Isosorbide Dinitrate 10 Mg Tablet) 10 mg PO TID [facility] Stop: 05/20/23 13:59 Last Admin: 05/21/22 08:00 Dose: Not Given Levothyroxine Sodium (Levothyroxine 100 Mcg Tablet) 100 mcg PO DAILY@0630 [facility] Stop: 05/21/23 06:29 Last Admin: 05/21/22 06:20 Dose: 100 mcg Liothyronine Sodium (Liothyronine 5 Mcg Tablet) 10 mcg PO DAILY [facility] Stop: 05/21/23 08:59 Last Admin: 05/21/22 08:00 Dose: Not Given Multivitamins (Multivitamin 1 Tab Tablet) 1 tab PO DAILY [facility] Stop: 05/21/23 08:59 Last Admin: 05/21/22 08:00 Dose: Not Given Nifedipine (Nifedipine Er.24hr 30 Mg Tab.Er.24) 30 mg PO BID [facility] Stop: 05/20/23 20:59 Last Admin: 05/21/22 08:01 Dose: Not Given Ondansetron HCl (Ondansetron 4 Mg/2 Ml Vial) 4 mg IV-PUSH Q8H PRN PRN Reason: Nausea And Vomiting Stop: 05/20/23 13:39 Oxycodone HCl (Oxycodone Ir 5 Mg Tablet) 5 mg PO Q6H PRN PRN Reason: Pain Scale 4 - 7 Pantoprazole Sodium (Pantoprazole 40 Mg Tablet.Dr) 40 mg PO BID [facility] Stop: 05/20/23 20:59 Last Admin: 05/21/22 08:01 Dose: Not Given Potassium Chloride (Potassium Chloride Er 20 Meq Tab.Er.Prt) 40 meq PO DAILY PRN PRN Reason: Hypokalemia Stop: 05/20/23 13:39 Sodium Bicarbonate (Sodium Bicarbonate 650 Mg Tablet) 1,300 mg PO BID [facility] Stop: 05/20/23 20:59 Last Admin: 05/21/22 08:01 [...] (1,000 Units) Tablet) 50 mcg PO DAILY [facility] Stop: 05/21/23 08:59 Last Admin: 05/21/22 08:00 [...] signed by MD Ashutosh Thomas> 05/21/22 1040 [facility] Work Phone: 1(444) 309-747303-01-2023 History and physical note Author Salvador Alonso [facility] May 20, 2022 2:43pm Note Date/Time May 20, 2022 1:50 pm [facility] [address] [place] [address] Hospitalist H&P Signed Patient: Gopal Yates Jr MR#: [id number] : 1965 Acct:[id number] Age/Sex: 56 / M Adm Date: 3 Loc: Room: [address] [place] [address] Type: ADM IN Attending Dr: Salvador lAonso MD Copies to: MD Douglas Boles MD~ HPI DATE OF EXAMINATION: 05/20/22 CHIEF COMPLAINT: osteomyelits HISTORY OF PRESENT ILLNESS: Mr. Yates is a 56yo M with PMH of CKD stage V, CAD status post TX, HFpEF, HTN, HLD, insulin-dependent DM type II, hypothyroidism was sent to the emergency department by his paintings conservator due to worsening right lateral foot ulcer. [...] % (Auto) 3.3 % (.) 05/20/22 11:35 [place] % (Auto) 8.7 % (.) 05/20/22 11:35 Eos % (Auto) 0.2 % (.) 05/20/22 11:35 Baso % (Auto) 0.8 % (.) 05/20/22 11:35 Nucleat RBC Rel Count 0.1 /100 WBC (0-0.5) 05/20/22 11:35 Neut # (Auto) 8.0 x10E3/uL (1.8-7.7) H 05/20/22 11:35 Lymph # (Auto) 0.3 x10E3/uL (1.00-4.8) L 05/20/22 11:35 [place] # (Auto) 0.8 x10E3/uL (0.0-0.8) 05/20/22 11:35 [...] <Electronically signed by Salvador Alonso MD> 05/20/22 2461 [facility] Work Phone: 1(649) [phone] Progress note Author Yvonne Barboza [facility] May 08, 2022 11:37am Note Date/Time May 08, 2022 11:37am [facility] [address] [place] [address] Nephrology Progress Note Signed Patient: Gopal Yates Jr MR#: [id number] : 1965 Acct:[id number] Age/Sex: 56 / M Adm Date: 3 Loc: Room: [address] [place] [address] Type: ADM IN Attending Dr: Cornelio Simon [...] visible mass Skin: No rashes or bruises [employer]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,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, 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 Musculoskeletal: No joint [...] 81 Mg Tablet.) 81 mg PO DAILY [facility] Stop: 05/06/23 08:59 Last Admin: 05/06/22 08:25 Dose: 81 mg Bumetanide (Bumetanide 2 Mg Tablet) 2 mg PO DAILY [facility] Stop: 05/06/23 08:59 Last Admin: 05/08/22 08:48 Dose: 2 mg Carvedilol (Carvedilol 12.5 Mg Tablet) 25 mg PO BID [facility] Stop: 05/05/23 20:59 Last Admin: 05/08/22 08:48 Dose: 25 mg Clopidogrel Bisulfate (Clopidogrel Bisulfate 75 Mg Tablet) 75 mg PO DAILY [facility] Stop: 05/06/23 08:59 Last Admin: 05/06/22 08:26 Dose: 75 mg Dextrose (Dextrose 50% In Water 25 Gm/50 Ml Syringe) 0 gm IV-PUSH PRN PRN PRN Reason: Hypoglycemia Stop: 05/05/23 16:33 Ezetimibe (Ezetimibe 10 Mg Tablet) 10 mg PO DAILY [facility] Stop: 05/06/23 08:59 Last Admin: 05/08/22 08:48 Dose: 10 mg Ferrous Sulfate (Ferrous Sulfate 324 Mg Tablet.Dr) 324 mg PO DAILY [facility] [facility] Stop: 05/06/23 08:59 Last Admin: 05/08/22 08:48 Dose: 324 mg Glucose (Dextrose 40% Gel 15 Gm Tube) 0 gm PO PRN PRN PRN Reason: Hypoglycemia Stop: 05/05/23 16:33 Heparin Sodium (Porcine) (Heparin 5,000 Unit/Ml Vial) 5,000 unit SUBCUT Q8HR [facility] Stop: 05/06/23 21:59 Last Admin: 05/08/22 05:43 Dose: 5,000 unit Hydralazine HCl (Hydralazine 50 Mg Tablet) 50 mg PO TID [facility] Stop: 05/05/23 21:59 Last Admin: 05/08/22 08:49 [...] 100 mls @ 200 mls/hr IV Q12H [facility] Stop: 05/06/23 04:59 Last Admin: 05/08/22 04:08 Dose: 200 mls/hr Insulin Aspart (Insulin Aspart 300 Units/3 Ml Insuln.Pen) 0 units SUBCUT TID.WM.HS [facility]; Protocol Stop: 05/05/23 16:59 Last Admin: 05/08/22 08:50 Dose: Not Given Insulin Glargine (Insulin Glargine 300 Units/3 Ml Insuln.Pen) 16 units SUBCUT QAM [facility] Stop: 05/06/23 08:59 Last Admin: 05/08/22 08:50 Dose: Not Given Isosorbide Dinitrate (Isosorbide Dinitrate 10 Mg Tablet) 10 mg PO TID [facility] Stop: 05/05/23 21:59 Last Admin: 05/08/22 08:49 Dose: 10 mg Levothyroxine Sodium (Levothyroxine 100 Mcg Tablet) 100 mcg PO DAILY@0630 [facility] Stop: 05/06/23 06:29 Last Admin: 05/08/22 05:43 Dose: 100 mcg Multivitamins (Multivitamin 1 Tab Tablet) 1 tab PO DAILY [facility] Stop: 05/06/23 08:59 Last Admin: 05/08/22 08:49 Dose: 1 tab Nifedipine (Nifedipine Er.24hr 30 Mg Tab.Er.24) 30 mg PO BID [facility] Stop: 05/05/23 20:59 Last Admin: 05/08/22 08:48 Dose: 30 mg Ondansetron HCl (Ondansetron 4 Mg/2 Ml Vial) 4 mg IV-PUSH Q6H PRN PRN Reason: Nausea And Vomiting Stop: 05/05/23 16:35 Pantoprazole Sodium (Pantoprazole 40 Mg Tablet.Dr) 40 mg PO DAILY [facility] Stop: 05/06/23 08:59 Last Admin: 05/08/22 08:49 Dose: 40 mg Potassium Chloride (Potassium Chloride Er 20 Meq Tab.Er.Prt) 40 meq PO DAILY PRN PRN Reason: Hypokalemia Stop: 05/05/23 16:35 Sodium Bicarbonate (Sodium Bicarbonate 650 Mg Tablet) 1,300 mg PO BID [facility] Stop: 05/08/23 20:59 Sodium Chloride (Sodium Chloride 0.9 % 10 Ml Syringe) 0 ml IV-PUSH PRN PRN PRN Reason: Flush Stop: 05/05/23 11:34 Last Admin: 05/06/22 17:15 Dose: 10 ml Sodium Chloride (Sodium Chloride 0.9 % 10 Ml Syringe) 0 ml IV-PUSH PRN PRN PRN Reason: Flush Stop: 05/05/23 16:35 Vitamin D (Cholecalciferol 25 Mcg (1,000 Units) Tablet) 50 mcg PO DAILY [facility] Stop: 05/06/23 08:59 Last Admin: 05/08/22 08:48 [...] <Electronically signed by Yvonne Barboza MD> 05/08/22 1137 [facility] Work Phone: 1([phone] 388-193202-16-2023 Progress note Author Cornelio Simon [facility] May 07, 2022 5:08pm Note Date/Time May 07, 2022 4:41pm [facility] [address] [place] [address] Hospitalist Progress Note Signed Patient: Gopal Yates Jr MR#: [id number] : 1965 Acct:[id number] Age/Sex: 56 / M Adm Date: 3 Loc: Room: [address] [place] [address] Type: ADM IN Attending Dr: Cornelio Simon [...] Vial SUBCUT 05/06/23 21:59 Not Given Q8HR [facility] Hydralazine HCl 50 mg 05/05/22 22:00 05/07/22 [...] Ml Insuln.Pen SUBCUT 05/05/23 16:59 Not Given TID.WM[facility] Protocol Insulin Glargine 16 units 05/06/22 09:00 05/07/22 08:07 Insulin Glargine 300 Units/3 Ml Insuln.Pen SUBCUT 05/06/23 08:59 Not Given QAM [facility] Isosorbide Dinitrate 10 mg 05/05/22 22:00 05/07/22 13:59 Isosorbide Dinitrate 10 Mg Tablet PO 05/05/23 21:59 10 mg TID [facility] Administration Levothyroxine Sodium 100 mcg 05/06/22 06:30 05/07/22 07:25 Levothyroxine 100 Mcg Tablet PO 05/06/23 06:29 Not Given DAILY@0630 [facility] Multivitamins 1 tab 05/06/22 09:00 05/07/22 08:07 Multivitamin 1 Tab Tablet PO 05/06/23 08:59 Not Given DAILY [facility] Nifedipine 30 mg 05/05/22 21:00 05/07/22 08:04 Nifedipine Er.24hr 30 Mg Tab.Er.24 PO 05/05/23 20:59 30 mg BID [facility] Administration Ondansetron HCl 4 mg 05/05/22 16:36 Ondansetron 4 Mg/2 Ml Vial IV-PUSH 05/05/23 16:35 Q6H PRN Nausea And Vomiting Pantoprazole Sodium 40 mg 05/06/22 09:00 05/07/22 08:07 Pantoprazole 40 Mg Tablet. PO 05/06/23 08:59 Not Given [...] -Continue Bumex, sodium bicarb CAD status post TX/stent x1 HFpEF Hyperlipidemia Hypertension Patient has no [...] <Electronically signed by Cornelio Simon MD> 05/07/22 1709 [facility] Work Phone: [phone]) [phone] Progress note Author Yvonne Barboza [facility] May 07, 2022 12:06pm Note Date/Time May 07, 2022 12:06pm [facility] [address] [place] [address] Nephrology Progress Note Signed Patient: Gopal Yates Jr MR#: [id number] : 1965 Acct:[id number] Age/Sex: 56 / M Adm Date: 3 Loc: 4N Room: 5O5050-2 Type: ADM IN Attending Dr: Cornelio Simon [...] visible mass Skin: No rashes or bruises 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,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, 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 Musculoskeletal: No joint [...] 81 Mg Tablet.) 81 mg PO DAILY [facility] Stop: 05/06/23 08:59 Last Admin: 05/06/22 08:25 Dose: 81 mg Bumetanide (Bumetanide 2 Mg Tablet) 2 mg PO DAILY [facility] Stop: 05/06/23 08:59 Last Admin: 05/06/22 08:26 Dose: 2 mg Carvedilol (Carvedilol 12.5 Mg Tablet) 25 mg PO BID [facility] Stop: 05/05/23 20:59 Last Admin: 05/07/22 08:04 Dose: 25 mg Clopidogrel Bisulfate (Clopidogrel Bisulfate 75 Mg Tablet) 75 mg PO DAILY [facility] Stop: 05/06/23 08:59 Last Admin: 05/06/22 08:26 Dose: 75 mg Dextrose (Dextrose 50% In Water 25 Gm/50 Ml Syringe) 0 gm IV-PUSH PRN PRN PRN Reason: Hypoglycemia Stop: 05/05/23 16:33 Ezetimibe (Ezetimibe 10 Mg Tablet) 10 mg PO DAILY [facility] Stop: 05/06/23 08:59 Last Admin: 05/06/22 08:26 Dose: 10 mg Ferrous Sulfate (Ferrous Sulfate 324 Mg Tablet.Dr) 324 mg PO DAILY [facility] Stop: 05/06/23 08:59 Last Admin: 05/07/22 08:07 Dose: Not Given Glucose (Dextrose 40% Gel 15 Gm Tube) 0 gm PO PRN PRN PRN Reason: Hypoglycemia Stop: 05/05/23 16:33 Heparin Sodium (Porcine) (Heparin 5,000 Unit/Ml Vial) 5,000 unit SUBCUT Q8HR [facility] Stop: 05/06/23 21:59 Last Admin: 05/07/22 05:07 Dose: Not Given Hydralazine HCl (Hydralazine 50 Mg Tablet) 50 mg PO TID [facility] Stop: 05/05/23 21:59 Last Admin: 05/07/22 08:07 Dose: Not Given Magnesium Sulfate (Magnesium Sulf 2gm-*Swfi*) 2 gm in 50 mls @ 25 mls/hr IV DAILY PRN PRN Reason: Magnesium Level < 1.7 Stop: 05/05/23 16:35 Ceftaroline Fosamil 300 mg/ (Sodium Chloride) 100 mls @ 200 mls/hr IV Q12H [facility] Stop: 05/06/23 04:59 Last Admin: 05/07/22 05:07 Dose: 200 mls/hr Lactated Ringer's (Lactated Ringers) 1,000 mls @ 20 mls/hr IV .Q24H [facility] Stop: 05/08/22 01:54 Insulin Aspart (Insulin Aspart 300 Units/3 Ml Insuln.Pen) 0 units SUBCUT TID.WM.HS [facility]; Protocol Stop: 05/05/23 16:59 Last Admin: 05/07/22 12:02 Dose: Not Given Insulin Glargine (Insulin Glargine 300 Units/3 Ml Insuln.Pen) 16 units SUBCUT QAM [facility] Stop: 05/06/23 08:59 Last Admin: 05/07/22 08:07 Dose: Not Given Isosorbide Dinitrate (Isosorbide Dinitrate 10 Mg Tablet) 10 mg PO TID [facility] Stop: 05/05/23 21:59 Last Admin: 05/07/22 08:07 Dose: Not Given Levothyroxine Sodium (Levothyroxine 100 Mcg Tablet) 100 mcg PO DAILY@0630 [facility] Stop: 05/06/23 06:29 Last Admin: 05/07/22 07:25 Dose: Not Given Multivitamins (Multivitamin 1 Tab Tablet) 1 tab PO DAILY [facility] Stop: 05/06/23 08:59 Last Admin: 05/07/22 08:07 Dose: Not Given Nifedipine (Nifedipine Er.24hr 30 Mg Tab.Er.24) 30 mg PO BID [facility] Stop: 05/05/23 20:59 Last Admin: 05/07/22 08:04 Dose: 30 mg Ondansetron HCl (Ondansetron 4 Mg/2 Ml Vial) 4 mg IV-PUSH Q6H PRN PRN Reason: Nausea And Vomiting Stop: 05/05/23 16:35 Pantoprazole Sodium (Pantoprazole 40 Mg Tablet.Dr) 40 mg PO DAILY [facility] Stop: 05/06/23 08:59 Last Admin: 05/07/22 08:07 [...] Esteban Harden MD/ 8:58 AM Dictation Location: [id number] Any impression(s) listed above is documentation that [...] signed by Yvonne Barboza MD> 05/07/22 1206 [facility] Work Phone: [phone] Progress note Author Ashutosh Thomas [facility] May 07, 2022 10:01am Note Date/Time May 07, 2022 10:02am [facility] [address] [place] [address] Infect. Disease Progress Note Signed Patient: Gopal Yates Jr MR#: [id number] : 1965 Acct:[id number] Age/Sex: 56 / M Adm Date: 3 Loc: N Room: [address] [place] [address] Type: ADM IN Attending Dr: Cornelio Simon [...] 81 Mg Tablet.) 81 mg PO DAILY [facility] Stop: 05/06/23 08:59 Last Admin: 05/06/22 08:25 Dose: 81 mg Bumetanide (Bumetanide 2 Mg Tablet) 2 mg PO DAILY [facility] Stop: 05/06/23 08:59 Last Admin: 05/06/22 08:26 Dose: 2 mg Carvedilol (Carvedilol 12.5 Mg Tablet) 25 mg PO BID [facility] Stop: 05/05/23 20:59 Last Admin: 05/07/22 08:04 Dose: 25 mg Clopidogrel Bisulfate (Clopidogrel Bisulfate 75 Mg Tablet) 75 mg PO DAILY [facility] Stop: 05/06/23 08:59 Last Admin: 05/06/22 08:26 Dose: 75 mg Dextrose (Dextrose 50% In Water 25 Gm/50 Ml Syringe) 0 gm IV-PUSH PRN PRN PRN Reason: Hypoglycemia Stop: 05/05/23 16:33 Ezetimibe (Ezetimibe 10 Mg Tablet) 10 mg PO DAILY [facility] Stop: 05/06/23 08:59 Last Admin: 05/06/22 08:26 Dose: 10 mg Ferrous Sulfate (Ferrous Sulfate 324 Mg Tablet.) 324 mg PO DAILY [facility] Stop: 05/06/23 08:59 Last Admin: 05/07/22 08:07 Dose: Not Given Glucose (Dextrose 40% Gel 15 Gm Tube) 0 gm PO PRN PRN PRN Reason: Hypoglycemia Stop: 05/05/23 16:33 Heparin Sodium (Porcine) (Heparin 5,000 Unit/Ml Vial) 5,000 unit SUBCUT Q8HR [facility] Stop: 05/06/23 21:59 Last Admin: 05/07/22 05:07 Dose: Not Given Hydralazine HCl (Hydralazine 50 Mg Tablet) 50 mg PO TID [facility] Stop: 05/05/23 21:59 Last Admin: 05/07/22 08:07 Dose: Not Given Magnesium Sulfate (Magnesium Sulf 2gm-*Swfi*) 2 gm in 50 mls @ 25 mls/hr IV DAILY PRN PRN Reason: Magnesium Level < 1.7 Stop: 05/05/23 16:35 Ceftaroline Fosamil 300 mg/ (Sodium Chloride) 100 mls @ 200 mls/hr IV Q12H [facility] Stop: 05/06/23 04:59 Last Admin: 05/07/22 05:07 Dose: 200 mls/hr Lactated Ringer's (Lactated Ringers) 1,000 mls @ 20 mls/hr IV .Q24H [facility] Stop: 05/08/22 01:54 Insulin Aspart (Insulin Aspart 300 Units/3 Ml Insuln.Pen) 0 units SUBCUT TID.WM.HS [facility]; Protocol Stop: 05/05/23 16:59 Last Admin: 05/07/22 08:05 Dose: Not Given Insulin Glargine (Insulin Glargine 300 Units/3 Ml Insuln.Pen) 16 units SUBCUT QAM [facility] Stop: 05/06/23 08:59 Last Admin: 05/07/22 08:07 Dose: Not Given Isosorbide Dinitrate (Isosorbide Dinitrate 10 Mg Tablet) 10 mg PO TID [facility] Stop: 05/05/23 21:59 Last Admin: 05/07/22 08:07 Dose: Not Given Levothyroxine Sodium (Levothyroxine 100 Mcg Tablet) 100 mcg PO DAILY@0630 [facility] Stop: 05/06/23 06:29 Last Admin: 05/07/22 07:25 Dose: Not Given Multivitamins (Multivitamin 1 Tab Tablet) 1 tab PO DAILY [facility] Stop: 05/06/23 08:59 Last Admin: 05/07/22 08:07 Dose: Not Given Nifedipine (Nifedipine Er.24hr 30 Mg Tab.Er.24) 30 mg PO BID [facility] Stop: 05/05/23 20:59 Last Admin: 05/07/22 08:04 Dose: 30 mg Ondansetron HCl (Ondansetron 4 Mg/2 Ml Vial) 4 mg IV-PUSH Q6H PRN PRN Reason: Nausea And Vomiting Stop: 05/05/23 16:35 Pantoprazole Sodium (Pantoprazole 40 Mg Tablet.Dr) 40 mg PO DAILY [facility] Stop: 05/06/23 08:59 Last Admin: 05/07/22 08:07 [...] <Electronically signed by MD Ashutosh Thomas> 05/07/22 1004 [facility] Work Phone: [phone] Consult note Author Eddy Griggs [facility] May 06, 2022 5:35pm Note Date/Time May 06, 2022 5:35pm [facility] [address] [place] [address] Podiatry Consult Note Signed Patient: Gopal Yates Jr MR#: [id number] : 1965 Acct:[id number] Age/Sex: 56 / M Adm Date: 3 Loc: 4N Room: [address] [place] [address] Type: ADM IN Attending Dr: Cornelio Simon [...] under at the wound care center in [place] and x-rays were noted to have osteomyelitis. Due to his kidney function he was sent to [facility] as there is a concern for need for inpatient dialysis which is not available at [place]. Patient states that he has had some [...] did request to have follow-up at the [place] wound care center. I will contact Dr. [...] Documented By: Eddy Griggs DPM 05/06/22 17 27 Signed By: <Electronically signed by HARRY Griggs> 05/06/22 0914 [facility] Work Phone: [phone] Consult note Author Sohan Kellogg [facility] May 06, 2022 5:02pm Note Date/Time May 06, 2022 4:57pm [facility] [address] [place] [address] General Surgery Consult Note Signed Patient: Gopal Yates Jr MR#: [id number] : 1965 Acct:[id number] Age/Sex: 56 / M Adm Date: 3 Loc: N Room: 7C5876-5 Type: ADM IN Attending Dr: Cornelio Simon [...] 81 Mg Tablet.) 81 mg PO DAILY [facility] Stop: 05/06/23 08:59 Last Admin: 05/06/22 08:25 Dose: 81 mg Bumetanide (Bumetanide 2 Mg Tablet) 2 mg PO DAILY [facility] Stop: 05/06/23 08:59 Last Admin: 05/06/22 08:26 Dose: 2 mg Carvedilol (Carvedilol 12.5 Mg Tablet) 25 mg PO BID [facility] Stop: 05/05/23 20:59 Last Admin: 05/06/22 08:26 Dose: 25 mg Clopidogrel Bisulfate (Clopidogrel Bisulfate 75 Mg Tablet) 75 mg PO DAILY [facility] Stop: 05/06/23 08:59 Last Admin: 05/06/22 08:26 Dose: 75 mg Dextrose (Dextrose 50% In Water 25 Gm/50 Ml Syringe) 0 gm IV-PUSH PRN PRN PRN Reason: Hypoglycemia Stop: 05/05/23 16:33 Ezetimibe (Ezetimibe 10 Mg Tablet) 10 mg PO DAILY [facility] Stop: 05/06/23 08:59 Last Admin: 05/06/22 08:26 Dose: 10 mg Ferrous Sulfate (Ferrous Sulfate 324 Mg Tablet.Dr) 324 mg PO DAILY [facility] Stop: 05/06/23 08:59 Last Admin: 05/06/22 08:25 Dose: 324 mg Glucose (Dextrose 40% Gel 15 Gm Tube) 0 gm PO PRN PRN PRN Reason: Hypoglycemia Stop: 05/05/23 16:33 Heparin Sodium (Porcine) (Heparin 5,000 Unit/Ml Vial) 5,000 unit SUBCUT Q8HR [facility] Stop: 05/06/23 21:59 Hydralazine HCl (Hydralazine 50 Mg Tablet) 50 mg PO TID [facility] Stop: 05/05/23 21:59 Last Admin: 05/06/22 14:46 Dose: 50 mg Magnesium Sulfate (Magnesium Sulf 2gm-*Swfi*) 2 gm in 50 mls @ 25 mls/hr IV DAILY PRN PRN Reason: Magnesium Level < 1.7 Stop: 05/05/23 16:35 Ceftaroline Fosamil 300 mg/ (Sodium Chloride) 100 mls @ 200 mls/hr IV Q12H [facility] Stop: 05/06/23 04:59 Last Admin: 05/06/22 05:28 Dose: 200 mls/hr Sodium Bicarbonate 150 meq/ (Sterile Water) 1,150 mls @ 100 mls/hr IV .[id number] [facility] Stop: 05/07/22 10:29 Last Admin: 05/06/22 12:58 Dose: 100 mls/hr Insulin Aspart (Insulin Aspart 300 Units/3 Ml Insuln.Pen) 0 units SUBCUT TID.WM.HS [facility]; Protocol Stop: 05/05/23 16:59 Last Admin: 05/06/22 12:58 Dose: Not Given Insulin Glargine (Insulin Glargine 300 Units/3 Ml Insuln.Pen) 16 units SUBCUT QAM [facility] Stop: 05/06/23 08:59 Last Admin: 05/06/22 08:26 Dose: Not Given Isosorbide Dinitrate (Isosorbide Dinitrate 10 Mg Tablet) 10 mg PO TID [facility] Stop: 05/05/23 21:59 Last Admin: 05/06/22 14:46 Dose: 10 mg Levothyroxine Sodium (Levothyroxine 100 Mcg Tablet) 100 mcg PO DAILY@0630 [facility] Stop: 05/06/23 06:29 Last Admin: 05/06/22 05:30 Dose: 100 mcg Multivitamins (Multivitamin 1 Tab Tablet) 1 tab PO DAILY [facility] Stop: 05/06/23 08:59 Last Admin: 05/06/22 08:26 Dose: 1 tab Nifedipine (Nifedipine Er.24hr 30 Mg Tab.Er.24) 30 mg PO BID [facility] Stop: 05/05/23 20:59 Last Admin: 05/06/22 08:26 Dose: 30 mg Ondansetron HCl (Ondansetron 4 Mg/2 Ml Vial) 4 mg IV-PUSH Q6H PRN PRN Reason: Nausea And Vomiting Stop: 05/05/23 16:35 Pantoprazole Sodium (Pantoprazole 40 Mg Tablet.Dr) 40 mg PO DAILY [facility] Stop: 05/06/23 08:59 Last Admin: 05/06/22 08:26 [...] (1,000 Units) Tablet) 50 mcg PO DAILY [facility] Stop: 05/06/23 08:59 Last Admin: 05/06/22 08:26 [...] % (Auto) 89.9, Lymph % (Auto) 2.5, [place] % (Auto) 7.1, Eos % (Auto) 0.2, Baso % (Auto) 0.3, Nucleat RBC Rel Count 0.1, Neut # (Auto) 10.3 H, Lymph # (Auto) 0.3 L, [place] # (Auto) 0.8, Eos # (Auto) 0.0, [...] % (Auto) 90.3, Lymph % (Auto) 3.2, [place] % (Auto) 6.3, Eos % (Auto)0.2, Baso % (Auto) 0.0, Nucleat RBC Rel Count 0.1, Neut # (Auto) 10.7 H, Lymph #(Auto) 0.4 L, [place] # (Auto) 0.8, Eos # (Auto) 0.0, [...] active infections. Documented By: Sohan Kellogg MD 05/06/22 1651 Signed By: <Electronically signed by MD Sohan Kellogg> 05/06/22 3218 [facility] Work Phone: [phone] Consult note Author Yvonne Barboza [facility] May 06, 2022 11:39am Note Date/Time May 06, 2022 11:33am [facility] [address] [place] [address] Nephrology Consult Note Signed Patient: Gopal Yates Jr MR#: [id number] : 1965 Acct:[id number] Age/Sex: 56 / M Adm Date: 3 Loc: 4N Room: [address] [place] [address] Type: ADM IN Attending Dr: Cornelio Simon MD Copies to: MD Douglas Kraus MD Frederick E Doamekpor, MD~ Providers Consult Date: 05/06/22 Requesting Provider: Cornelio Simon MD Primary Care Provider: Douglas Juárez MD HPI Reason for Consult: CKD and metabolic acidosis management. History of Present Illness: This is a 56-year male with multiple comorbidities including CAD s/p PCI, CKD, type 2 insulin-dependent diabetes mellitus, chronic congestive heart failure withpreserved EF, hypertension, anemia, dyslipidemia was sent by the paintings conservator for worsening right foot ulcer with concern [...] 81 Mg Tablet.) 81 mg PO DAILY [facility] Stop: 05/06/23 08:59 Last Admin: 05/06/22 08:25 Dose: 81 mg Bumetanide (Bumetanide 2 Mg Tablet) 2 mg PO DAILY [facility] Stop: 05/06/23 08:59 Last Admin: 05/06/22 08:26 Dose: 2 mg Carvedilol (Carvedilol 12.5 Mg Tablet) 25 mg PO BID [facility] Stop: 05/05/23 20:59 Last Admin: 05/06/22 08:26 Dose: 25 mg Clopidogrel Bisulfate (Clopidogrel Bisulfate 75 Mg Tablet) 75 mg PO DAILY [facility] Stop: 05/06/23 08:59 Last Admin: 05/06/22 08:26 Dose: 75 mg Dextrose (Dextrose 50% In Water 25 Gm/50 Ml Syringe) 0 gm IV-PUSH PRN PRN PRN Reason: Hypoglycemia Stop: 05/05/23 16:33 Ezetimibe (Ezetimibe 10 Mg Tablet) 10 mg PO DAILY [facility] Stop: 05/06/23 08:59 Last Admin: 05/06/22 08:26 Dose: 10 mg Ferrous Sulfate (Ferrous Sulfate 324 Mg Tablet.) 324 mg PO DAILY [facility] Stop: 05/06/23 08:59 Last Admin: 05/06/22 08:25 Dose: 324 mg Glucose (Dextrose 40% Gel 15 Gm Tube) 0 gm PO PRN PRN PRN Reason: Hypoglycemia Stop: 05/05/23 16:33 Heparin Sodium (Porcine) (Heparin 5,000 Unit/Ml Vial) 5,000 unit SUBCUT Q8HR [facility] Stop: 05/06/23 21:59 Hydralazine HCl (Hydralazine 50 Mg Tablet) 50 mg PO TID [facility] Stop: 05/05/23 21:59 Last Admin: 05/06/22 08:26 Dose: 50 mg Magnesium Sulfate (Magnesium Sulf 2gm-*Swfi*) 2 gm in 50 mls @ 25 mls/hr IV DAILY PRN PRN Reason: Magnesium Level < 1.7 Stop: 05/05/23 16:35 Ceftaroline Fosamil 300 mg/ (Sodium Chloride) 100 mls @ 200 mls/hr IV Q12H [facility] Stop: 05/06/23 04:59 Last Admin: 05/06/22 05:28 Dose: 200 mls/hr Sodium Bicarbonate 150 meq/ (Sterile Water) 1,150 mls @ 100 mls/hr IV .[id number] [facility] Stop: 05/07/22 10:29 Insulin Aspart (Insulin Aspart 300 Units/3 Ml Insuln.Pen) 0 units SUBCUT TID.WM.HS [facility]; Protocol Stop: 05/05/23 16:59 Last Admin: 05/06/22 08:25 Dose: Not Given Insulin Glargine (Insulin Glargine 300 Units/3 Ml Insuln.Pen) 16 units SUBCUT QAM [facility] Stop: 05/06/23 08:59 Last Admin: 05/06/22 08:26 Dose: Not Given Isosorbide Dinitrate (Isosorbide Dinitrate 10 Mg Tablet) 10 mg PO TID [facility] Stop: 05/05/23 21:59 Last Admin: 05/06/22 08:26 Dose: 10 mg Levothyroxine Sodium (Levothyroxine 100 Mcg Tablet) 100 mcg PO DAILY@0630 [facility] Stop: 05/06/23 06:29 Last Admin: 05/06/22 05:30 Dose: 100 mcg Multivitamins (Multivitamin 1 Tab Tablet) 1 tab PO DAILY [facility] Stop: 05/06/23 08:59 Last Admin: 05/06/22 08:26 Dose: 1 tab Nifedipine (Nifedipine Er.24hr 30 Mg Tab.Er.24) 30 mg PO BID [facility] Stop: 05/05/23 20:59 Last Admin: 05/06/22 08:26 Dose: 30 mg Ondansetron HCl (Ondansetron 4 Mg/2 Ml Vial) 4 mg IV-PUSH Q6H PRN PRN Reason: Nausea And Vomiting Stop: 05/05/23 16:35 Pantoprazole Sodium (Pantoprazole 40 Mg Tablet.Dr) 40 mg PO DAILY [facility] Stop: 05/06/23 08:59 Last Admin: 05/06/22 08:26 [...] visible mass Skin: No rashes or bruises [employer]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 SIGNAL CHANGES INVOLVING THE FIFTH METATARSAL AND PROXIMAL PHALANX OF THE FIFTH TOE, SUSPICIOUS FOR OSTEOMYELITIS GIVEN THE PRESENCE OF AN ADJACENT SKIN ULCER. Impression dictated by: Tana Perry M.D.05/06/2022 8:46 AM Dictation Location: [place] [address] Any impression(s) listed above is documentation that [...] <Electronically signed by Yvonne Barboza MD> 05/06/22 1135 [facility] Work Phone: [phone] Consult note Author Ashutosh Thomas [facility] May 06, 2022 11:35am Note Date/Time May 06, 2022 11:35am [facility] [address] [place] [address] Infect. 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 MRI was performed [...] negative unless noted below or in HPI [facility] Attestation Statement: The following information was validated [...] 81 Mg Tablet.) 81 mg PO DAILY [facility] Stop: 05/06/23 08:59 Last Admin: 05/06/22 08:25 Dose: 81 mg Bumetanide (Bumetanide 2 Mg Tablet) 2 mg PO DAILY [facility] Stop: 05/06/23 08:59 Last Admin: 05/06/22 08:26 Dose: 2 mg Carvedilol (Carvedilol 12.5 Mg Tablet) 25 mg PO BID [facility] Stop: 05/05/23 20:59 Last Admin: 05/06/22 08:26 Dose: 25 mg Clopidogrel Bisulfate (Clopidogrel Bisulfate 75 Mg Tablet) 75 mg PO DAILY [facility] Stop: 05/06/23 08:59 Last Admin: 05/06/22 08:26 Dose: 75 mg Dextrose (Dextrose 50% In Water 25 Gm/50 Ml Syringe) 0 gm IV-PUSH PRN PRN PRN Reason: Hypoglycemia Stop: 05/05/23 16:33 Ezetimibe (Ezetimibe 10 Mg Tablet) 10 mg PO DAILY [facility] Stop: 05/06/23 08:59 Last Admin: 05/06/22 08:26 Dose: 10 mg Ferrous Sulfate (Ferrous Sulfate 324 Mg Tablet.Dr) 324 mg PO DAILY [facility] Stop: 05/06/23 08:59 Last Admin: 05/06/22 08:25 Dose: 324 mg Glucose (Dextrose 40% Gel 15 Gm Tube) 0 gm PO PRN PRN PRN Reason: Hypoglycemia Stop: 05/05/23 16:33 Heparin Sodium (Porcine) (Heparin 5,000 Unit/Ml Vial) 5,000 unit SUBCUT Q8HR [facility] Stop: 05/06/23 21:59 Hydralazine HCl (Hydralazine 50 Mg Tablet) 50 mg PO TID [facility] Stop: 05/05/23 21:59 Last Admin: 05/06/22 08:26 Dose: 50 mg Magnesium Sulfate (Magnesium Sulf 2gm-*Swfi*) 2 gm in 50 mls @ 25 mls/hr IV DAILY PRN PRN Reason: Magnesium Level < 1.7 Stop: 05/05/23 16:35 Ceftaroline Fosamil 300 mg/ (Sodium Chloride) 100 mls @ 200 mls/hr IV Q12H [facility] Stop: 05/06/23 04:59 Last Admin: 05/06/22 05:28 Dose: 200 mls/hr Sodium Bicarbonate 150 meq/ (Sterile Water) 1,150 mls @ 100 mls/hr IV .[id number] [facility] Stop: 05/07/22 10:29 Insulin Aspart (Insulin Aspart 300 Units/3 Ml Insuln.Pen) 0 units SUBCUT TID.WM.HS [facility]; Protocol Stop: 05/05/23 16:59 Last Admin: 05/06/22 08:25 Dose: Not Given Insulin Glargine (Insulin Glargine 300 Units/3 Ml Insuln.Pen) 16 units SUBCUT QAM [facility] Stop: 05/06/23 08:59 Last Admin: 05/06/22 08:26 Dose: Not Given Isosorbide Dinitrate (Isosorbide Dinitrate 10 Mg Tablet) 10 mg PO TID [facility] Stop: 05/05/23 21:59 Last Admin: 05/06/22 08:26 Dose: 10 mg Levothyroxine Sodium (Levothyroxine 100 Mcg Tablet) 100 mcg PO DAILY@0630 [facility] Stop: 05/06/23 06:29 Last Admin: 05/06/22 05:30 Dose: 100 mcg Multivitamins (Multivitamin 1 Tab Tablet) 1 tab PO DAILY [facility] Stop: 05/06/23 08:59 Last Admin: 05/06/22 08:26 Dose: 1 tab Nifedipine (Nifedipine Er.24hr 30 Mg Tab.Er.24) 30 mg PO BID [facility] Stop: 05/05/23 20:59 Last Admin: 05/06/22 08:26 Dose: 30 mg Ondansetron HCl (Ondansetron 4 Mg/2 Ml Vial) 4 mg IV-PUSH Q6H PRN PRN Reason: Nausea And Vomiting Stop: 05/05/23 16:35 Pantoprazole Sodium (Pantoprazole 40 Mg Tablet.Dr) 40 mg PO DAILY [facility] Stop: 05/06/23 08:59 Last Admin: 05/06/22 08:26 [...] (1,000 Units) Tablet) 50 mcg PO DAILY [facility] Stop: 05/06/23 08:59 Last Admin: 05/06/22 08:26 [...] Acute Plan No cultures apparently done at [place]. Cultures here are pending. Given [facility]'s [facility] while we await culture results. Podiatry to see the patient and determine surgical plan. Length and route of antibiotics to be determined after surgical intervention. 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 Patient was [...] placement. He was recommended to come to [facility] due to nephrology support perioperatively. In the [...] History (Updated 05/05/22 @ 13:01 by Barb Kramer RN) Anemia CHF (congestive heart failure) CKD (chronic kidney disease) Diabetes type 2, controlled Hypertension Wound of foot Surgical History (Updated 05/05/22 @ 13:01 by Barb Kramer RN) History of heart artery stent 2019 Hx [...] % (Auto) 2.5 % (.) 05/06/22 05:01 [place] % (Auto) 7.1 % (.) 05/06/22 05:01 Eos % (Auto) 0.2 % (.) 05/06/22 05:01 Baso % (Auto) 0.3 % (.) 05/06/22 05:01 Nucleat RBC Rel Count 0.1 /100 WBC (0-0.5) 05/06/22 05:01 Neut # (Auto) 10.3 x10E3/uL (1.8-7.7) H 05/06/22 05:01 Lymph # (Auto) 0.3 x10E3/uL (1.00-4.8) L 05/06/22 05:01 [place] # (Auto) 0.8 x10E3/uL (0.0-0.8) 05/06/22 05:01 [...] Diabetic foot ulcer Patient presents from his paintings conservator office with worsening right foot ulcer overthe past 3 weeks. Patient did spike fever overnight and does have borderline elevated WBC. ESR and CRP are elevated. MRI was performed yesterday and does confirm evidence of osteomyelitis on the fifth metatarsal. Patient normally follows up with Dr. Iverson at [facility], but I am informed that Dr. Griggs [...] their recommendations -Continue Bumex CAD status post TX/stent x1 HFpEF Hyperlipidemia Hypertension Patient has no [...] code Documented By: Cornelio Simon MD 3 [id number] Signed By: <Electronically signed by Cornelio Simon MD> 05/06/22 5125 [facility] Work Phone: [phone]) 747-428202-14-2023 NotePROCEDURE: XR FOOT RT MIN 3 VIEWS [...] Electronically authenticated by: FIDEL GONGORA Date: 2022-05-05 07:29[facility]01-26-2023 NoteHNO ID: [id number] Author: Monik Dotson APRN.STREET INSPECTOR Service: ? Author Type: Nurse Practitioner Type: Progress Notes Filed: 04/16/2022 3:56 PM Note Text: NAME: Gopal Yates CLINIC NO.: [id number] DATE OF SERVICE: April 16, 2022 (Imer) Some elements in this clinic note that are critical to medical decision making have been carefully reviewed and included from a prior clinic note dated: February 18, 2022. (Dr. Rojas) Referring Provider: Dr. Douglas Juárez Additional Clinicians involved in Gopal Yates 's care: DIAGNOSIS: Elevated [place]: Lambda light chains CKD induced anemia ASSESSMENT: [...] bruising. 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 Overall, he is doing [...] completed 5 doses of IV iron at [facility]. Initial Visit, October 02, 2021: Gopal Yates [...] daily with breakfast. hydrALAZIN (more content not included)...[facility]01-26-2023 History of Present illness Narrative* Monik Dotson APRN.STREET INSPECTOR - 04/16/2022 2:56 PM EST Images from the original note were not included. NAME: Gopal Yates CLINIC NO.: [id number] DATE OF SERVICE: April 16, 2022 (Imer) Some elements in this clinic note that are critical to medical decision making have been carefully reviewed and included from a prior clinic note dated: February 18, 2022. (Dr. Rojas) Referring Provider: Dr. Douglas Juárez Additional Clinicians involved in Gopal Yates JR's care: DIAGNOSIS: Elevated [place]: Lambda light chains CKD induced anemia ASSESSMENT: [...] abnormal bruising.He is scheduled to see his graphic arts instructor in March 2022. Overall, he is doing [...] completed 5 doses of IV iron at [facility]. Initial Visit, October 02, 2021: Gopal Yates [...] APRN.CNP Hematology and Oncology Services Provided at: [place], [place] CC: Dr. Douglas Juárez [address] [facility] [address] I spent a total of 30 minutes on the date of the service which included preparing to see the patient, [id number] patient care, completing clinical documentation, obtaining and/or reviewing separately obtained history, performing a medically appropriate examination, counseling and educating the pat ient/family/caregiver, ordering medications, tests, or procedures, independently interpreting results (not separately reported), and communicating results to the patient/family/caregiver. documented in this encounterMercy [facility] Evaluation note* Encounter Date Diagnosis Assessment Notes Treatment Notes Treatment Clinical Notes Mar, CKD (chronic kidney disease) stage 4, GFR 15-29 ml/min (ICD-10 - N18.4) [facility] Other [id number] Evaluation note* Encounter Date Diagnosis Assessment Notes [...] No fluid overload. 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 Author Type: Physician Type: Progress Notes Filed: 02/21/2022 5:24 PM Note Text: NAME: Gopal Yates CLINIC NO.: [id number] DATE OF SERVICE: February 18, 2022 (Latricia) Some elements in this clinic note that are critical to medical decision making have been carefully reviewed and included from a prior clinic note dated:January 14, 2022 (Imer) Referring Provider: Dr. Douglas Juárez Additional Clinicians involved in Gopal Yates 's care: DIAGNOSIS: [place]vated [place]: Lambda light chains CKD induced anemia ASSESSMENT: [...] bruising. 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 Overall, he is doing [...] completed 5 doses of IV iron at [facility]. Initial Visit, October 02, 2021: Gopal Yates [...] by mouth once d (more content not included)...[facility]10-26-2022 NoteHNO ID: [id number] Author: Monik Dotson APRN.STREET INSPECTOR Service: ? Author Type: Nurse Practitioner Type: Progress Notes Filed: 01/16/2022 4:13 PM Note Text: NAME: Gopal Yates [facility] NO.: [id number] DATE OF SERVICE: January 14, 2022 (Imer) [...] possible Aranesp. (Delay 1 week due to Hol) 3. Will obtain records from [facility] mainly interested in IV Iron dates. CURRENT [...] bruising. 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 Overall, he is doing [...] completed 5 doses of IV iron at [facility]. Initial Visit, October 02, 2021: Gopal Yates [...] (%) Date Value 12/21 (more content not included)...[facility]-26-2022 Nurse Note* Harriet Childress MA - 01/14/2022 2:24 PM EDT Patient states he is tired and cold all the time. He states that the infusions don't seem to help but the shot he gets here does. Harriet Childress MA documented in this encounterMercy Health St. [facility]10-26-2022 History of Present illness Narrative* Monik Dotson APRN.CNP - 01/14/2022 2:05 PM EDT Images from the original note were not included. NAME: Gopal Yates [facility] NO.: [id number] DATE OF SERVICE: January 14, 2022 (Imer) Some elements in this clinic note that are critical to medical decision making have been carefully reviewed and included from a prior clinic note dated: December 17, 2021 (Dr. Rojas) Referring Provider: Dr. Douglas Juárez Additional Clinicians involved in Gopal Yates 's care: DIAGNOSIS: Elevated [place]: Lambda light [...] to Holiday) 3. Will obtain records from [facility] mainly interested in IV Iron dates. CURRENT [...] abnormal bruising.He is scheduled to see his graphic arts instructor in March 2022. Overall, he is doing [...] completed 5 doses of IV iron at [facility]. Initial Visit, October 02, 2021: Gopal Yates [...] disease Father Mental illness Father Monik Dotson APRN.STREET INSPECTOR Hematology and [facility] [place] CC: Dr. Douglas Juárez [address] [facility] [address] [address] Douglas Juárez [address] [facility] [id number] documented in this encounterMercy Health St. [facility]10-11-2022 Evaluation note* Encounter Date Diagnosis Assessment Notes Treatment Notes Treatment Clinical Notes Dec, Iron deficiency anemia (ICD-10 - D50.9) reviewed recent labs with patient. patient is encouraged to continue to follow with [facility] Dr. do not need to proceed with Colon at this time. Dec, Phlegm in throat (ICD-10 - R09.89) patient states Mucinex oes seem to help this we will refer to pulmonology. [facility] Other 09-28-2022 NoteHNO ID: [id number] Author: Conrad Rojas MD Service: ? Author Type: Physician Type: Progress Notes Filed: 12/17/2021 4:03 PM Note Text: NAME: Gopal Yates CLINIC NO.: [id number] DATE OF SERVICE: December 17, 2021 (Latricia) [...] possible Aranesp. 3. Will obtain records from [facility] mainly interested in IV Iron dates. CURRENT [...] completed 5 doses of IV iron at [facility]. Initial Visit, October 02, 2021: Gopal Yates [...] mellitus (HCC) Edema Hypothyroidism (more content not included)...[facility] 12-17-2021 Instructions* Patient Instructions* Conrad Rojas MD - 12/17/2021 2:37 PM EDT 1. No Aranesp today. 2. Follow up in weeks for labs and possible Aranesp. documented in this encounterMercy Health St. [facility]09-28-2022 History of Present illness Narrative* Conrad Rojas MD - 12/17/2021 2:33 PM EDT Images from the original note were not included. NAME: Nicolás Gopal [facility] NO.: [id number] DATE OF SERVICE: December 17, 2021 (Latricia) [...] possible Aranesp. 3. Will obtain records from [facility] mainly interested in IV Iron dates. CURRENT [...] completed 5 doses of IV iron at [facility]. Initial Visit, October 02, 2021: Gopal Yates [...] which included preparing to see the patient, [id number] patient care, completing clinical documentation, performing a medically appropriate examination, counseling and educating the patient/family/caregiver, and ordering medications, tests,or procedures. Conrad Rojas MD, CPE Hematology and Oncology Services Provided at: [place], [place] CC: Dr. Douglas Juárez [address] [facility] [address] [address] Douglas Juárez [address] [facility] [address] documented in this encounterMercy Health St. [facility]09-20-2022 Evaluation note* Encounter Date Diagnosis Assessment Notes Treatment Notes Treatment Clinical Notes Nov, CKD (chronic kidney disease) stage 4, GFR 15-29 ml/min (ICD-10 - N18.4) He has advanced CKD stage IV . CKD is likely from diabetic s and cardiorenal syndrome. Serum creatinine has been around 3.5-3.9 mg/dl. GFR this visit 17 ml/min no ileana uremic symptoms . 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 Nov, Anemia of renal disease (ICD-10 - D63.1) patient received 2 loading doses of venofer in the last 2 visits. patient is currently on CAROL . last HGB > 11 g/dl Nov, Other I will check CB C next visit along with iron storage [facility] Other 09-15-2022 Miscellaneous Notes* Telephone Encounter - Monik Dotson APRN.CNP - 12/04/2021 11:47 AM EDT Thanks! Monik Dotson APRN.STREET INSPECTOR * Telephone Encounter - Dana An - 12/04/2021 10:15 AM EDT Brionna from [facility] infusion center called back regarding patients iron infusions. She said he got 2 sets of 5 doses. Dates of infusion are: 07/22/21, 07/31/21, 08/06/21, 08/13/21, 08/20/21 10/20/21, 10/27/21, 11/03/21, 11/10/21, 11/17/21 documented in [address] encounterMercy Health St. [facility]09-14-2022 NoteHNO ID: [id number] Author: Monik Dotson APRN.CNP Service: ? Author Type: Nurse Practitioner Type: Progress Notes Filed: 12/03/2021 2:17 PM Note Text: NAME: Gopal Yates [facility] NO.: [id number] DATE OF SERVICE: December 03, 2021 Referring Provider: Dr. Douglas Juárez (Elements copied from Dr. Rojas note dated October 02, 2021, have been reviewed and updated where appropriate, and all reflect current assessment and medical decision making during today's encounter, December 03, 2021) Additional Clinicians involved in Gopal [facility]'s care: DIAGNOSIS: Elevated [place]:Lambda light chains CKD induced anemia ASSESSMENT: 56 year old gentleman with longstanding and poorly controlled T2DM and HTN with renal failure. CKD induced anemia underwent lab workup for possible underlying primary marrow conditions that were negative. PLAN: 1. No Aranesp today. Hemoglobin 11.8. 2. Follow up in 2 weeks for labs and possible Aranesp. 3. Will obtain records from [facility] mainly interested in IV Iron dates. CURRENT [...] completed 5 doses of IV iron at [facility]. Initial Visit, October 02, 2021: Gopal Yates [...] Topics Alcohol use: Not (more content not included)...[facility] 12-03-2021 History of Present illness Narrative* Monik Dotson APRN.STREET INSPECTOR - 12/03/2021 2:00 PM EDT Images from the original note were not included. NAME: Gopal Yates [facility] NO.: [id number] DATE OF SERVICE: December 03, 2021 Referring [...] possible Aranesp. 3. Will obtain records from [facility] mainly interested in IV Iron dates. CURRENT TREATMENT: 12/04/2020 Aranesp 200 mcg initiated. HPI: CASE HISTORY: Updated Visit, December 03, 2021: Gopal Nicolás STEPHEN returns today for follow-up. Aranesp 200 mcg initiated on 10/22/2021. To date, he has had 3 Aranesp injections. He still complains of feeling cold and tired. He denies any signs of bleeding. He states that he has completed 5 doses of IV iron at [facility]. Initial Visit, October 02, 2021: Gopal Yates [...] APRN.CNP Hematology and Oncology Services Provided at: [place], [place] CC: Dr. Douglas Juárez [address] [facility] [address] [address] Douglas Juárez [address] [facility] [address] documented in this encounterMercy Health St. [facility]07-28-2022 NoteHNO ID: [id number] Author: Conrad Rojas MD Service: ? Author [...] KELLY Hematology and Oncology Services Provided at: [place], [place] CC: Douglas Juárez MD [address] [place], [place] [address]07-28-2022 History of Present illness Narrative* Conrad Rojas [...] Total Time Spent: 5 minutes Conrad Rojas MD CPE Hematology and Oncology Services Provided at: [place], [place] CC: Douglas Juárez MD [address] [place], [place] [id number] documented in this encounterMercy Health St. [facility]07-14-2022 NoteHNO ID: [id number] Author: Conrad Rojas MD Service: ? Author Type: Physician Type: Progress Notes Filed: 10/08/2021 9:04 PM Note Text: NAME: Gopal Yates NO.: [id number] DATE OF SERVICE: October 02, 2021 Referring [...] Date Value 10/02/2021 0.00 (more content not included)...[facility]07-14-2022 History of Present illness Narrative* Conrad Rojas MD - 10/02/2021 4:00 PM EDT Images from the original note were not included. NAME: Gopal Yates [facility] NO.: [id number] DATE OF SERVICE: October 02, 2021 Referring [...] which included preparing to see the patient, [id number] patient care, completing clinical documentation, obtaining and/or reviewing separately obtained history, performing a medically appropriate examination, counseling and educating the pat ient/family/caregiver and ordering medications, tests, or procedures. Conrad Rojas MD, CPE Hematology and Oncology Services Provided at: [place], [place] CC: Douglas Juárez MD [address] [place] [address] Douglas Juárez MD, [address] [place] [address] documented in [address] encounterMercy Health St. [facility]07-06-20[facility] Evaluation note* Encounter Date Diagnosis Assessment Notes Treatment Notes Treatment Clinical Notes Sep, CKD (chronic kidney disease) stage 4, GFR 15-29 ml/min (ICD-10 - N18.4) He has advanced CKD stage IV . CKD is likely from diabetic s and cardiorenal syndrome. Serum creatinine has been around 3.5-3.9 mg/dl. GFR this visit 16 ml/min no ileana uremic symptoms . 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 Sep, Anemia of renal disease [...] C next visit along with iron storage [facility] Other 04-26-2022 Evaluation note* Encounter Date Diagnosis [...] pain status post PCI of RCA at [place] in 2019. Jun, Anemia of renal disease (ICD-10 - D63.1) Hemoglobin below g/dL. Iron saturation 23%. I will start the patient on Venofer 200 mg injection weekly for 4 weeks Jun, Other I will check CB C next visit along with iron storage [facility] Other 03-15-2022 Evaluation note* Encounter Date Diagnosis [...] pain status post PCI of RCA at [place] in 2020. May, Anemia of renal disease (ICD-10 - D63.1) Patient has anemia on oral iron. No CBC is available. Will order CBC with next blood work. May, Other I will check CB C next visit along with iron storage [facility] Other Consult note Author Ashutosh Thomas [facility] May 21, 2022 10:40am Note Date/Time May 21, 2022 10:0 4am [facility] EN[facility] [address] [place] [address] Infect. Disease Consult Note Signed Patient: Gopal Yates Jr MR#: [id number] : 1965 Acct:[id number] Age/Sex: 56 / M Adm Date: 3 Loc: Room: [address] [place] [address] Type: ADM IN Attending Dr: Salvador Alonso [...] sent to the ED yesterday by his paintings conservator, Dr. Griggs, because his right foot wound continued to show signs of infection. The patient recently had resection of his right fifth digit on 05/07 and completed a 10-day course of Augmentin. The patient states that his wound continued to drain after the operation and that his paintings conservator has scheduled surgery for today. He continues on IV vancomycin, which was started in the ED. The patient has past medical history significant for CKD stage 5 for which he isscheduled to start dialysis and have a PD catheter placed next week, CAD post?TX, HFpEF, hypertension, hyperlipidemia, insulin-dependent T2DM, and hypothyroidism. [...] 2 Mg Tablet) 2 mg PO DAILY [facility] Stop: 05/21/23 08:59 Last Admin: 05/21/22 08:00 Dose: Not Given Carvedilol (Carvedilol 12.5 Mg Tablet) 37.5 mg PO BID.WITH.MEALS [facility] Stop: 05/20/23 16:59 Last Admin: 05/21/22 07:52 Dose: 37.5 mg Cyproheptadine HCl (Cyproheptadine 4 Mg Tablet) 4 mg PO DAILY [facility] Stop: 05/21/23 08:59 Last Admin: 05/21/22 08:00 Dose: Not Given Ezetimibe (Ezetimibe 10 Mg Tablet) 10 mg PO DAILY [facility] Stop: 05/21/23 08:59 Last Admin: 05/21/22 08:00 Dose: Not Given Hydralazine HCl (Hydralazine 50 Mg Tablet) 50 mg PO TID [facility] Stop: 05/20/23 13:59 Last Admin: 05/21/22 08:00 Dose: Not Given Sodium Chloride (0.9 % Sodium Chloride) 500 mls @ 20 mls/hr IV PROTOCOL PRN PRN Reason: BLOOD TRANSFUSION Stop: 05/22/22 08:32 Insulin Glargine (Insulin Glargine 300 Units/3 Ml Insuln.Pen) 16 units SUBCUT QAM [facility] Stop: 05/21/23 08:59 Last Admin: 05/21/22 08:00 Dose: Not Given Isosorbide Dinitrate (Isosorbide Dinitrate 10 Mg Tablet) 10 mg PO TID [facility] Stop: 05/20/23 13:59 Last Admin: 05/21/22 08:00 Dose: Not Given Levothyroxine Sodium (Levothyroxine 100 Mcg Tablet) 100 mcg PO DAILY@0630 [facility] Stop: 05/21/23 06:29 Last Admin: 05/21/22 06:20 Dose: 100 mcg Liothyronine Sodium (Liothyronine 5 Mcg Tablet) 10 mcg PO DAILY [facility] Stop: 05/21/23 08:59 Last Admin: 05/21/22 08:00 Dose: Not Given Multivitamins (Multivitamin 1 Tab Tablet) 1 tab PO DAILY [facility] Stop: 05/21/23 08:59 Last Admin: 05/21/22 08:00 Dose: Not Given Nifedipine (Nifedipine Er.24hr 30 Mg Tab.Er.24) 30 mg PO BID [facility] Stop: 05/20/23 20:59 Last Admin: 05/21/22 08:01 Dose: Not Given Ondansetron HCl (Ondansetron 4 Mg/2 Ml Vial) 4 mg IV-PUSH Q8H PRN PRN Reason: Nausea And Vomiting Stop: 05/20/23 13:39 Oxycodone HCl (Oxycodone Ir 5 Mg Tablet) 5 mg PO Q6H PRN PRN Reason: Pain Scale 4 - 7 Pantoprazole Sodium (Pantoprazole 40 Mg Tablet.Dr) 40 mg PO BID [facility] Stop: 05/20/23 20:59 Last Admin: 05/21/22 08:01 Dose: Not Given Potassium Chloride (Potassium Chloride Er 20 Meq Tab.Er.Prt) 40 meq PO DAILY PRN PRN Reason: Hypokalemia Stop: 05/20/23 13:39 Sodium Bicarbonate (Sodium Bicarbonate 650 Mg Tablet) 1,300 mg PO BID [facility] Stop: 05/20/23 20:59 Last Admin: 05/21/22 08:01 [...] vancomycin Documented By: Ashutosh Thomas MD 05/21/22 0987 Signed By: <Electronically signed by MD Ashutosh Thomas> 05/21/22 1049 [facility] Work Phone: Consult note Author PHILLIP Luis [facility] May 21, 2022 12:02pm Note Date/Time May 21, 2022 11:5 8am [facility] EN[facility] [address] [place] [address] Podiatry Consult Note Signed Patient: Gopal Yates Jr MR#: [id number] : 1965 Acct:[id number] Age/Sex: 56 / M Adm Date: 3 Loc: Room: [address] [place] [address] Type: ADM IN Attending Dr: Salvador Alonso [...] diabetic neuropathy, unspecified Documented By: Primo Luis,HARRY, MS, CWS 05/14 1154 Signed By: <Electronically signed by HARRY MS PHILLIP Luis> 05/21/22 1202 [facility] Work Phone: Consult note Author Cristobal Butts [facility] May 21, 2022 1:27pm Note Date/Time May 21, 2022 1:27 pm [facility] EN[facility] [address] [place] [address] Nephrology Consult Note Signed Patient: Gopal Yates Jr MR#: [id number] : 1965 Acct:[id number] Age/Sex: 56 / M Adm Date: 3 Loc: Room: [address] [place] [address] Type: ADM IN Attending Dr: Salvador Alonso MD Copies to: MD Cristobal Boles MD Douglas M Hoy, MD~ Providers Consult Date: 05/21/22 Requesting Provider: Salvador Alonso MD Primary Care Provider: Douglas Juárez MD [facility] Reason for Consult: Chronic kidney disease [...] been following with hematology clinic [facility] for CAROL injection. Patient missed her last appointment. Hemoglobin this morning 7.7 g deciliter. Kidney function remains at baseline with today serum creatinine 5.2 mmol/L and GFR 11 mm/min. BUN 72. Potassium 4.0. Serum bicarb 20 Review of Systems Review of Systems Review of systems: 12 system review is negative today [facility] Vaccinated for COVID-19?: Yes Medical History Anemia [...] 2 Mg Tablet) 2 mg PO DAILY [facility] Stop: 05/21/23 08:59 Last Admin: 05/21/22 08:00 Dose: Not Given Carvedilol (Carvedilol 12.5 Mg Tablet) 37.5 mg PO BID.WITH.MEALS [facility] Stop: 05/20/23 16:59 Last Admin: 05/21/22 07:52 Dose: 37.5 mg Cyproheptadine HCl (Cyproheptadine 4 Mg Tablet) 4 mg PO DAILY [facility] Stop: 05/21/23 08:59 Last Admin: 05/21/22 08:00 Dose: Not Given Ezetimibe (Ezetimibe 10 Mg Tablet) 10 mg PO DAILY [facility] Stop: 05/21/23 08:59 Last Admin: 05/21/22 08:00 Dose: Not Given Hydralazine HCl (Hydralazine 50 Mg Tablet) 50 mg PO TID [facility] Stop: 05/20/23 13:59 Last Admin: 05/21/22 08:00 Dose: Not Given Sodium Chloride (0.9 % Sodium Chloride) 500 mls @ 20 mls/hr IV PROTOCOL PRN PRN Reason: BLOOD TRANSFUSION Stop: 05/22/22 08:32 Piperacillin Sod/Tazobactam Sod (Zosyn 2.25gm) 2.25 gm in 100 mls @ 200 mls/hr IV Q6H [facility] Last Admin: 05/21/22 11:18 Dose: 200 mls/hr Insulin Glargine (Insulin Glargine 300 Units/3 Ml Insuln.Pen) 16 units SUBCUT QAM [facility] Stop: 05/21/23 08:59 Last Admin: 05/21/22 08:00 Dose: Not Given Isosorbide Dinitrate (Isosorbide Dinitrate 10 Mg Tablet) 10 mg PO TID [facility] Stop: 05/20/23 13:59 Last Admin: 05/21/22 08:00 Dose: Not Given Levothyroxine Sodium (Levothyroxine 100 Mcg Tablet) 100 mcg PO DAILY@0630 [facility] Stop: 05/21/23 06:29 Last Admin: 05/21/22 06:20 Dose: 100 mcg Liothyronine Sodium (Liothyronine 5 Mcg Tablet) 10 mcg PO DAILY [facility] Stop: 05/21/23 08:59 Last Admin: 05/21/22 08:00 Dose: Not Given Multivitamins (Multivitamin 1 Tab Tablet) 1 tab PO DAILY [facility] Stop: 05/21/23 08:59 Last Admin: 05/21/22 08:00 Dose: Not Given Nifedipine (Nifedipine Er.24hr 30 Mg Tab.Er.24) 30 mg PO BID [facility] Stop: 05/20/23 20:59 Last Admin: 05/21/22 08:01 Dose: Not Given Ondansetron HCl (Ondansetron 4 Mg/2 Ml Vial) 4 mg IV-PUSH Q8H PRN PRN Reason: Nausea And Vomiting Stop: 05/20/23 13:39 Oxycodone HCl (Oxycodone Ir 5 Mg Tablet) 5 mg PO Q6H PRN PRN Reason: Pain Scale 4 - 7 Pantoprazole Sodium (Pantoprazole 40 Mg Tablet.Dr) 40 mg PO BID [facility] Stop: 05/20/23 20:59 Last Admin: 05/21/22 08:01 Dose: Not Given Potassium Chloride (Potassium Chloride Er 20 Meq Tab.Er.Prt) 40 meq PO DAILY PRN PRN Reason: Hypokalemia Stop: 05/20/23 13:39 Sodium Bicarbonate (Sodium Bicarbonate 650 Mg Tablet) 1,300 mg PO BID [facility] Stop: 05/20/23 20:59 Last Admin: 05/21/22 08:01 [...] (1,000 Units) Tablet) 50 mcg PO DAILY [facility] Stop: 05/21/23 08:59 Last Admin: 05/21/22 08:00 [...] Flynn Bradley M.D.05/21/2022 10:03 AM Dictation Location: [place] [address] Any impression(s) listed above is documentation that [...] been following with hematology clinic here in [facility]. Patient missed the last appointment. Patient is [...] signed by Cristobal Butts MD> 05/21/22 1327 [facility] Work Phone: Discharge summary Author Scotty Kahn [facility] May 25, 2022 5:23pm Note Date/Time May 25, 2022 10:3 0am [facility] ENTER [address] [place] [id number] Discharge Summary Signed Patient: Gopal Yates Jr MR#: [id number] : 1965 Acct:[id number] Age/Sex: 56 / M Adm Date: 3 Loc: 3T Room: [address] [place] [address]: Scotty Kahn DO Copies to: Bryan Velez DO, RES MD Scotty Mahoney, ~ Providers Date of Admission: 05/20/22 Date of [...] of CKD stage 5, CAD status post TX, HFpEF, HTN, HLD, insulin-dependent DM type II, hypothyroidism was sent to the emergency department by his paintings conservator due to worsening right lateral foot ulcer. [...] % (Auto) 75.9, Lymph % (Auto) 9.2, [place] % (Auto) 10.5, Eos % (Auto) 3.4, Baso % (Auto) 1.0, Nucleat RBC Rel Count 0.0, Neut # (Auto) 5.8, Lymph # (Auto) 0.7 L, [place] # (Auto) 0.8, Eos # (Auto) 0.3, [...] Location: Determined by Patient Ordered By: Ashutosh Blank C-Reactive Protein (Q7D) Timeframe: 20220610 Location: Determined by Patient Ordered By: Ashutosh Thomas C-Reactive Protein (Q7D) Timeframe: 20220617 Location: Determined by Patient Ordered By: Ashutosh Thomas Follow Up: [facility] [Outside] - 05/27/22 2:30 pm [...] <Electronically signed by DO NADIR Velez> 05/25/22 1558 [facility] Work Phone: Evaluation + Plan note No data available for this section [facility] [place] Evaluation note* Diagnosis Stage 3b chronic kidney disease (HCC)- Primary Anemia due to stage 3b chronic kidney disease (HCC) Elevated serum immunoglobulin free light chains Other nonspecific findings on examination of blood [facility] Diagnosis Anemia due to stage 3b chronic kidney disease (HCC)- Primary [facility] Diagnosis Anemia due to stage 3b chronic kidney disease (HCC)- Primary [facility] Diagnosis Anemia due to stage 3b chronic kidney disease (HCC)- Primary [facility] Work Phone: evaluation note* Diagnosis Anemia due to stage 4 chronic kidney disease (HCC)- Primary [facility]* Diagnosis Anemia due to stage 4 chronic kidney disease (HCC)- Primary documented in this encounter [facility] note* Diagnosis Anemia due to stage 3b chronic kidney disease (HCC)- Primary Hypothyroidism, unspecified type [facility]* Diagnosis Anemia due to stage 3b chronic kidney disease (HCC)- Primary documented in this encounter [facility] note* Diagnosis Anemia due to stage 3b chronic kidney disease (HCC)- Primary [facility]* Diagnosis Anemia due to stage 3b chronic kidney disease (HCC)- Primary Hypothyroidism, unspecified type [facility]* Diagnosis Onset Date Resolution Status Osteomyelitis acute [facility] Work Phone: evaluation note* Diagnosis Onset Date [...] right foot with necrosis of bone acute [facility] Work Phone: evaluation note* Diagnosis Onset Date [...] right foot with necrosis of bone acute [facility] Work Phone: Evaluation note* Diagnosis Onset Date [...] right foot with necrosis of bone acute [facility] Work Phone: Evaluation noteNo Narrable Other evaluation note* Diagnosis Onset Date Resolution Status [...] bone acute MARTHA (acute kidney injury) ac nulato Anemia acute CKD (chronic kidney disease) stage 5, GFR less than 15 ml/min acute Fever acute History of fever acute Osteomyelitis acute [facility] Work Phone: Evaluation note* Diagnosis [...] bone acute MARTHA (acute kidney injury) ac nulato Anemia acute CKD (chronic kidney disease) stage [...] disease acute Ulcer of right foot acute [facility] Work Phone: Evaluation note* Diagnosis Onychomycosis- Primary Dermatophytosis of nail Corns and callosities 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/HCC) Type II or unspecified type diabetes mellitus with neurological manifestations, not stated as uncontrolled Peripheral vascular disease, unspecified ([facility]/HCC) Peripheral vascular disease, unspecified [facility] Diagnosis Onychomycosis- Primary Dermatophytosis of nail Corns and callosities 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/HCC) Type II or unspecified type diabetes mellitus with neurological manifestations, not stated as uncontrolled Status post amputation of foot, right (CMS/[facility]) [facility] Diagnosis Peripheral vascular disease, unspecified (CMS/HCC)- Primary Peripheral vascular disease, unspecified Corns and callosities 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/HCC) Type II or unspecified type diabetes mellitus with neurological manifestations, not stated as uncontrolled Status post amputation of foot, right (CMS/HCC) [facility] Diagnosis Status post amputation of foot, right (CMS/HCC)- Primary 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/HCC) Type II or unspecified type diabetes mellitus with neurological manifestations, not stated as uncontrolled Peripheral vascular disease, unspecified ([facility]/HCC) Peripheral vascular disease, unspecified [facility]* Diagnosis Onset Date Resolution Status Admit Date Loss of appetite acute July 1:23pm Nausea & vomiting acute July 1:23pm [facility] Work Phone: Evaluation note* Diagnosis Status post amputation of foot, right (HCC)- Primary Type II diabetes mellitus with neurological manifestations (HCC) Type II or unspecified type diabetes mellitus with neurological manifestations, not stated as uncontrolled Onychomycosis Dermatophytosis of nail Corns and callosities [facility] Diagnosis Type II diabetes mellitus with neurological manifestations (HCC)- Primary Type II or unspecified type diabetes mellitus with neurological manifestations, not stated as uncontrolled Peripheral vascular disease, unspecified Status post amputation of foot, right (HCC) [facility] Author Salvador Alonso [facility] May 20, 2022 2:43pm Note Date/Time May 20, 2022 1:50 pm [facility] ENTER [address] [place] [address] Hospitalist H&P Signed Patient: Gopal Yates Jr MR#: [id number] : 1965 Acct:[id number] Age/Sex: 56 / M Adm Date: 3 Loc: Room: [address] [place] [address] Type: ADM IN Attending Dr: Salvador Alonso MD Copies to: MD Douglas Boles MD~ HPI DATE OF EXAMINATION: 05/20/22 CHIEF COMPLAINT: osteomyelits HISTORY OF PRESENT ILLNESS: Mr. Yates is a 56yo M with PMH of CKD stage V, CAD status post TX, HFpEF, HTN, HLD, insulin-dependent DM type II, hypothyroidism was sent to the emergency department by his paintings conservator due to worsening right lateral foot ulcer. [...] % (Auto) 3.3 % (.) 05/20/22 11:35 [place] % (Auto) 8.7 % (.) 05/20/22 11:35 Eos % (Auto) 0.2 % (.) 05/20/22 11:35 Baso % (Auto) 0.8 % (.) 05/20/22 11:35 Nucleat RBC Rel Count 0.1 /100 WBC (0-0.5) 05/20/22 11:35 Neut # (Auto) 8.0 x10E3/uL (1.8-7.7) H 05/20/22 11:35 Lymph # (Auto) 0.3 x10E3/uL (1.00-4.8) L 05/20/22 11:35 [place] # (Auto) 0.8 x10E3/uL (0.0-0.8) 05/20/22 11:35 [...] <Electronically signed by Salvador Alonso MD> 05/20/22 8374 [facility] Work Phone: Hise[place] general Narrative - Reported* Type Description Date [...] ATTAC K 01/2020 Hospitalization History HYPERTENSION WITH [facility] 08/2019 [place] Other [facility] general Narrative - Reported* Type Description Date [...] ATTAC K 01/2020 Hospitalization History HYPERTENSION WITH [facility] 08/2019 [facility] [address] [employer] Other Hospital Discharge instructions Additional Instructions Please leave dressing intact until you follow up with Dr. Griggs/Podiatry. [facility] Work Phone: Hospital Discharge instructions [...] 150 mmHg-- MWF Monitor glucose levels as before.[facility] Work Phone: Hospital Discharge instructions No data available for this section [facility] [place] Progress note Author Gopal Hardy [facility] May 08, 2022 6:31pm Note Date/Time May 08, 2022 6:26pm [facility] ENTER [address] [place] [address] Podiatry Progress Note Signed Patient: Gopal Yates Jr MR#: [id number] : 1965 Acct:[id number] Age/Sex: 56 / M Adm Date: 3 Loc: Room: [address] [place] [address] Type: DIS IN Attending Dr: Cornelio Simon [...] under at the wound care center in [place] and x-rays were noted to have osteomyelitis. Due to his kidney function he was sent to [facility] as there is a concern for need for inpatient dialysis which is not available at [place]. Patient states that he has had some [...] return to Dr. Iverson for at the [place] wound care center for the majority of [...] he will set this up with the [place] [facility]. Patient is advised to call [...] with diabetic chronic kidney disease Documented By: oGpal Hardy DPM, PHILLIP 1820 Signed By: <Electronically signed by HARRY Hardy> 05/08/22 183 [facility] Work Phone: Progress note Author Salvador Alonso [facility] May 21, 2022 11:00pm Note Date/Time May 21, 2022 11:0 0pm [facility] ENTER [address] [place] [address] Hospitalist Progress Note Signed Patient: Gopal Yates Jr MR#: [id number] : 1965 Acct:[id number] Age/Sex: 56 / M Adm Date: 3 Loc: 3T Room: [address] [place] [address] Type: ADM IN Attending Dr: Salvador Alonso [...] PO 05/21/23 08:59 Not Given DAILY [facility] Carvedilol 37.5 mg 05/20/22 17:00 05/21/22 19:39 [...] code Documented By: Salvador Alonso MD 05/21/22 1002 Signed By: <Electronically signed by Salvador Alonso MD> 05/21/22 7101 [facility] Work Phone: Progress note Author Eddy Griggs [facility] May 22, 2022 8:23am Note Date/Time May 22, 2022 8:18 am [facility] ENTER [address] [place] [address] Podiatry Progress Note Signed Patient: Gopal Yates Jr MR#: [id number] : 1965 Acct:[id number] Age/Sex: 56 / M Adm Date: 3 Loc: Room: [address] [place] [address] Type: ADM IN Attending Dr: Salvador Alonso [...] foot. It has been very difficult getting [facility] secured for the patient due to his insurance. He again states that he would like to go to the [place] wound center in order to have dressing changes, but Ipersonally called after his last hospitalization and due to their short staffingthey were not offering this service at this time. I advised that if we are not able to find a [facility] agency, patient may need to come to the infusion center for dresssing changes, but that does affect his healing due to the fact that he is going to be traveling with his foot down and this can affect his healing. We will wait on final OR cultures and try to arrange C prior to d/c. Podiatry will continue to [...] <Electronically signed by HARRY Griggs> 05/22/22 0823 [facility] Work Phone: Progress note Author Ashutosh Thomas [facility] May 22, 2022 12:21pm Note Date/Time May 22, 2022 12:[facility] [address] [place], [place] [id number] Infect. Disease Progress Note Signed Patient: Gopal Yates MR#: [id number] : 1965 Acct:[id number] Age/Sex: 56 / M Adm Date: 3 Loc: 3T Room: [address] [place] [address] Type: ADM IN Attending Dr: Salvador Alonso [...] 2 Mg Tablet) 2 mg PO DAILY [facility] Stop: 05/21/23 08:59 Last Admin: 05/22/22 08:34 Dose: 2 mg Carvedilol (Carvedilol 12.5 Mg Tablet) 37.5 mg PO BID.WITH.MEALS [facility] Stop: 05/20/23 16:59 Last Admin: 05/22/22 08:34 Dose: 37.5 mg Cyproheptadine HCl (Cyproheptadine 4 Mg Tablet) 4 mg PO DAILY [facility] Stop: 05/21/23 08:59 Last Admin: 05/22/22 08:33 Dose: 4 mg Ezetimibe (Ezetimibe 10 Mg Tablet) 10 mg PO DAILY [facility] Stop: 05/21/23 08:59 Last Admin: 05/22/22 08:34 Dose: 10 mg Hydralazine HCl (Hydralazine 50 Mg Tablet) 50 mg PO TID [facility] Stop: 05/20/23 13:59 Last Admin: 05/22/22 08:34 Dose: 50 mg Piperacillin Sod/Tazobactam Sod (Zosyn 2.25gm) 2.25 gm in 100 mls @ 200 mls/hr IV Q6H [facility] Last Admin: 05/22/22 11:31 Dose: 200 mls/hr Lactated Ringer's (Lactated Ringers) 1,000 mls @ 20 mls/hr IV .Q24H [facility] Stop: 05/22/22 13:54 Last Admin: 05/21/22 15:44 Dose: 20 mls/hr Vancomycin HCl 1.25 gm/ (Dextrose) 275 mls @ 183.333 mls/hr IV ONCE ONE Stop: 05/22/22 12:59 Insulin Glargine (Insulin Glargine 300 Units/3 Ml Insuln.Pen) 16 units SUBCUT QAM [facility] Stop: 05/21/23 08:59 Last Admin: 05/22/22 08:34 Dose: 16 units Isosorbide Dinitrate (Isosorbide Dinitrate 10 Mg Tablet) 10 mg PO TID [facility] Stop: 05/20/23 13:59 Last Admin: 05/22/22 08:34 Dose: 10 mg Levothyroxine Sodium (Levothyroxine 100 Mcg Tablet) 100 mcg PO DAILY@0630 [facility] Stop: 05/21/23 06:29 Last Admin: 05/22/22 06:05 Dose: 100 mcg Liothyronine Sodium (Liothyronine 5 Mcg Tablet) 10 mcg PO DAILY [facility] Stop: 05/21/23 08:59 Last Admin: 05/22/22 08:33 Dose: 10 mcg Multivitamins (Multivitamin 1 Tab Tablet) 1 tab PO DAILY [facility] Stop: 05/21/23 08:59 Last Admin: 05/22/22 08:33 Dose: 1 tab Nifedipine (Nifedipine Er.24hr 30 Mg Tab.Er.24) 30 mg PO BID [facility] Stop: 05/20/23 20:59 Last Admin: 05/22/22 08:34 Dose: 30 mg Ondansetron HCl (Ondansetron 4 Mg/2 Ml Vial) 4 mg IV-PUSH Q8H PRN PRN Reason: Nausea And Vomiting Stop: 05/20/23 13:39 Oxycodone HCl (Oxycodone Ir 5 Mg Tablet) 5 mg PO Q6H PRN PRN Reason: Pain Scale 4 - 7 Pantoprazole Sodium (Pantoprazole 40 Mg Tablet.Dr) 40 mg PO BID [facility] Stop: 05/20/23 20:59 Last Admin: 05/22/22 08:34 Dose: 40 mg Potassium Chloride (Potassium Chloride Er 20 Meq Tab.Er.Prt) 40 meq PO DAILY PRN PRN Reason: Hypokalemia Stop: 05/20/23 13:39 Sodium Bicarbonate (Sodium Bicarbonate 650 Mg Tablet) 1,300 mg PO BID [facility] Stop: 05/20/23 20:59 Last Admin: 05/22/22 08:33 [...] for home. Documented By: Ashutosh Thomas MD 05/22/221217 Signed By: <Electronically signed by MD Ashutosh Thmoas> 05/22/22 1221 [facility] Work Phone: Progress note Author Cristobal Butts [facility] May 22, 2022 1:15pm Note Date/Time May 22, 2022 1:16 pm [facility] ENTER [address] [place] [address] Nephrology Progress Note Signed Patient: Gopal Yates Jr MR#: [id number] : 1965 Acct:[id number] Age/Sex: 56 / M Adm Date: 3 Loc: Room: [address] [place] [address] Type: ADM IN Attending Dr: Salvador Alonso [...] been following with hematology clinic here in [facility] for CAROL injection. Patient missed her last [...] 2 Mg Tablet) 2 mg PO DAILY [facility] Stop: 05/21/23 08:59 Last Admin: 05/22/22 08:34 Dose: 2 mg Carvedilol (Carvedilol 12.5 Mg Tablet) 37.5 mg PO BID.WITH.MEALS [facility] Stop: 05/20/23 16:59 Last Admin: 05/22/22 08:34 Dose: 37.5 mg Cyproheptadine HCl (Cyproheptadine 4 Mg Tablet) 4 mg PO DAILY [facility] Stop: 05/21/23 08:59 Last Admin: 05/22/22 08:33 Dose: 4 mg Ezetimibe (Ezetimibe 10 Mg Tablet) 10 mg PO DAILY [facility] Stop: 05/21/23 08:59 Last Admin: 05/22/22 08:34 Dose: 10 mg Hydralazine HCl (Hydralazine 50 Mg Tablet) 50 mg PO TID [facility] Stop: 05/20/23 13:59 Last Admin: 05/22/22 08:34 Dose: 50 mg Piperacillin Sod/Tazobactam Sod (Zosyn 2.25gm) 2.25 gm in 100 mls @ 200 mls/hr IV Q6H [facility] Last Admin: 05/22/22 11:31 Dose: 200 mls/hr Lactated Ringer's (Lactated Ringers) 1,000 mls @ 20 mls/hr IV .Q24H [facility] Stop: 05/22/22 13:54 Last Admin: 05/21/22 15:44 Dose: 20 mls/hr Insulin Glargine (Insulin Glargine 300 Units/3 Ml Insuln.Pen) 16 units SUBCUT QAM [facility] Stop: 05/21/23 08:59 Last Admin: 05/22/22 08:34 Dose: 16 units Isosorbide Dinitrate (Isosorbide Dinitrate 10 Mg Tablet) 10 mg PO TID [facility] Stop: 05/20/23 13:59 Last Admin: 05/22/22 08:34 Dose: 10 mg Levothyroxine Sodium (Levothyroxine 100 Mcg Tablet) 100 mcg PO DAILY@0630 [facility] Stop: 05/21/23 06:29 Last Admin: 05/22/22 06:05 Dose: 100 mcg Liothyronine Sodium (Liothyronine 5 Mcg Tablet) 10 mcg PO DAILY [facility] Stop: 05/21/23 08:59 Last Admin: 05/22/22 08:33 Dose: 10 mcg Multivitamins (Multivitamin 1 Tab Tablet) 1 tab PO DAILY [facility] Stop: 05/21/23 08:59 Last Admin: 05/22/22 08:33 Dose: 1 tab Nifedipine (Nifedipine Er.24hr 30 Mg Tab.Er.24) 30 mg PO BID [facility] Stop: 05/20/23 20:59 Last Admin: 05/22/22 08:34 [...] (1,000 Units) Tablet) 50 mcg PO DAILY [facility] Stop: 05/21/23 08:59 Last Admin: 05/22/22 08:33 [...] been following with hematology clinic here in [facility]. Patient missed the last appointment. Patient received [...] <Electronically signed by Cristobal Butts MD> 05/22/22 5430 [facility] Work Phone: Progress note [facility] May 22, 2022 2:54pm Note Date/Time May 22, 2022 2:55 pm [facility] ENTER [address] [place] [address] Hospitalist Progress Note Signed Patient: NicolásGopal Maldonado Jr MR#: [id number] : 1965 Acct:[id number] Age/Sex: 56 / M Adm Date: 3 Loc: 3T Room: [address] [place] [address] Type: ADM IN Attending Dr: Salvador Alonso [...] code Documented By: Salvador Alonso MD 05/22/22 145 Signed By: <Electronically signed by Salvador Alonso MD> 05/22/22 1454 [facility] Work Phone: Progress note Author Salvador Alonso [facility] May 23, 2022 10:32am Note Date/Time May 23, 2022 10:3 2am [facility] ENTER [address] [place] [address] Hospitalist Progress Note Signed Patient: Gopal Yates Jr MR#: [id number] : 1965 Acct:[id number] Age/Sex: 56 / M Adm Date: 3 Loc: Room: [address] [place] [address] Type: ADM IN Attending Dr: Salvador Alonso [...] Tablet PO 05/20/23 13:59 10 mg TID ERDD Administration Levothyroxine Sodium 100 mcg 05/21/22 06:30 [...] signed by Salvador Alonso MD> 05/23/22 1032 [facility] Work Phone: Progress note Author Eddy Griggs [facility] May 23, 2022 10:48am Note Date/Time May 23, 2022 10:4 8am [facility] EN[facility] [address] [place] [address] Podiatry Progress Note Signed Patient: Gopal Yates Jr MR#: [id number] : 1965 Acct:[id number] Age/Sex: 56 / M Adm Date: 3 Loc: 3T Room: [address] [place] [address] Type: ADM IN Attending Dr: Salvador Alonso [...] <Electronically signed by HARRY Griggs> 05/23/22 1048 [facility] Work Phone: Progress note Author Cristobal Butts [facility] May 23, 2022 1:42pm Note Date/Time May 23, 2022 1:40 pm [facility] ENTER [address] [place] [address] Nephrology Progress Note Signed Patient: Gopal Yates Jr MR#: [id number] : 1965 Acct:[id number] Age/Sex: 56 / M Adm Date: 3 Loc: Room: [address] [place] [address] Type: ADM IN Attending Dr: Salvador Alonso [...] been following with hematology clinic here in [facility] for CAROL injection. Patient missed her last [...] 2 Mg Tablet) 2 mg PO DAILY [facility] Stop: 05/21/23 08:59 Last Admin: 05/23/22 09:36 Dose: 2 mg Carvedilol (Carvedilol 12.5 Mg Tablet) 37.5 mg PO BID.WITH.MEALS [facility] Stop: 05/20/23 16:59 Last Admin: 05/23/22 09:35 Dose: 37.5 mg Cyproheptadine HCl (Cyproheptadine 4 Mg Tablet) 4 mg PO DAILY [facility] Stop: 05/21/23 08:59 Last Admin: 05/23/22 09:36 Dose: 4 mg Ezetimibe (Ezetimibe 10 Mg Tablet) 10 mg PO DAILY [facility] Stop: 05/21/23 08:59 Last Admin: 05/23/22 09:35 Dose: 10 mg Hydralazine HCl (Hydralazine 50 Mg Tablet) 50 mg PO TID [facility] Stop: 05/20/23 13:59 Last Admin: 05/23/22 09:36 Dose: 50 mg Piperacillin Sod/Tazobactam Sod (Zosyn 2.25gm) 2.25 gm in 100 mls @ 200 mls/hr IV Q6H [facility] Last Admin: 05/23/22 11:31 Dose: 200 mls/hr Insulin Glargine (Insulin Glargine 300 Units/3 Ml Insuln.Pen) 16 units SUBCUT QAM [facility] Stop: 05/21/23 08:59 Last Admin: 05/23/22 09:38 Dose: 16 units Isosorbide Dinitrate (Isosorbide Dinitrate 10 Mg Tablet) 10 mg PO TID [facility] Stop: 05/20/23 13:59 Last Admin: 05/23/22 09:37 Dose: 10 mg Levothyroxine Sodium (Levothyroxine 100 Mcg Tablet) 100 mcg PO DAILY@0630 [facility] Stop: 05/21/23 06:29 Last Admin: 05/23/22 05:34 Dose: 100 mcg Liothyronine Sodium (Liothyronine 5 Mcg Tablet) 10 mcg PO DAILY [facility] Stop: 05/21/23 08:59 Last Admin: 05/23/22 09:35 Dose: 10 mcg Multivitamins (Multivitamin 1 Tab Tablet) 1 tab PO DAILY [facility] Stop: 05/21/23 08:59 Last Admin: 05/23/22 09:36 Dose: 1 tab Nifedipine (Nifedipine Er.24hr 30 Mg Tab.Er.24) 30 mg PO BID [facility] Stop: 05/20/23 20:59 Last Admin: 05/23/22 09:36 Dose: 30 mg Ondansetron HCl (Ondansetron 4 Mg/2 Ml Vial) 4 mg IV-PUSH Q8H PRN PRN Reason: Nausea And Vomiting Stop: 05/20/23 13:39 Oxycodone HCl (Oxycodone Ir 5 Mg Tablet) 5 mg PO Q6H PRN PRN Reason: Pain Scale 4 - 7 Pantoprazole Sodium (Pantoprazole 40 Mg Tablet.Dr) 40 mg PO BID [facility] Stop: 05/20/23 20:59 Last Admin: 05/23/22 09:35 Dose: 40 mg Potassium Chloride (Potassium Chloride Er 20 Meq Tab.Er.Prt) 40 meq PO DAILY PRN PRN Reason: Hypokalemia Stop: 05/20/23 13:39 Sodium Bicarbonate (Sodium Bicarbonate 650 Mg Tablet) 1,300 mg PO BID [facility] Stop: 05/20/23 20:59 Last Admin: 05/23/22 09:36 [...] been following with hematology clinic here in [facility] for CAROL injection . Patient missed the last appointment. Patient received 1 unit of RBC May 21. Patient also was given 1 dose of Altajt90,000 units May 21 . Continue to monitor H&H (5) Osteomyelitis of right foot: Plan: Right foot MRI findings as as in HPI. Patient currently covered by vancomycin and Zosyn IV. Status post amputation of the right fourth toe with I&D of right foot abscess with wound VAC placement. Pediatric service is following Documented By: Cristobal Butts MD 05/23/22 3246 Signed By: <Electronically signed by Cristobal Butts MD> 05/23/22 1342 [facility] Work Phone: Progress note Author Salvador Alonso [facility] May 24, 2022 12:12pm Note Date/Time May 24, 2022 12:1 2pm [facility] [address] [place] [address] Hospitalist Progress Note Signed Patient: Gopal Yates Jr MR#: [id number] : 1965 Acct:[id number] Age/Sex: 56 / M Adm Date: 3 Loc: Room: [address] [place] [address] Type: ADM IN Attending Dr: Salvador Alonso [...] signed by Salvador Alonso MD> 05/24/22 1212 [facility] Work Phone: Progress note Author Cristobal Butts [facility] May 24, 2022 12:26pm Note Date/Time May 24, 2022 12:2 6pm [facility] [address] [place] [address] Nephrology Progress Note Signed Patient: Gopal Yates Jr MR#: [id number] : 1965 Acct:[id number] Age/Sex: 56 / M Adm Date: 3 Loc: Room: [address] [place] [address] Type: ADM IN Attending Dr: Salvador Alonso [...] been following with hematology clinic here in [facility] for CAROL injection. Patient missed her last [...] 2 Mg Tablet) 2 mg PO DAILY [facility] Stop: 05/21/23 08:59 Last Admin: 05/24/22 08:56 Dose: 2 mg Carvedilol (Carvedilol 12.5 Mg Tablet) 37.5 mg PO BID.WITH.MEALS [facility] Stop: 05/20/23 16:59 Last Admin: 05/24/22 08:56 Dose: 37.5 mg Cyproheptadine HCl (Cyproheptadine 4 Mg Tablet) 4 mg PO BID [facility] Stop: 05/23/23 20:59 Last Admin: 05/24/22 08:55 Dose: 4 mg Ezetimibe (Ezetimibe 10 Mg Tablet) 10 mg PO DAILY [facility] Stop: 05/21/23 08:59 Last Admin: 05/24/22 08:56 Dose: 10 mg Hydralazine HCl (Hydralazine 50 Mg Tablet) 50 mg PO TID [facility] Stop: 05/20/23 13:59 Last Admin: 05/24/22 08:56 Dose: 50 mg Piperacillin Sod/Tazobactam Sod (Zosyn 2.25gm) 2.25 gm in 100 mls @ 200 mls/hr IV Q6H [facility] Last Admin: 05/24/22 11:49 Dose: 200 mls/hr Insulin Glargine (Insulin Glargine 300 Units/3 Ml Insuln.Pen) 16 units SUBCUT QAM [facility] Stop: 05/21/23 08:59 Last Admin: 05/24/22 08:56 Dose: 16 units Isosorbide Dinitrate (Isosorbide Dinitrate 10 Mg Tablet) 10 mg PO TID [facility] Stop: 05/20/23 13:59 Last Admin: 05/24/22 08:55 Dose: 10 mg Levothyroxine Sodium (Levothyroxine 100 Mcg Tablet) 100 mcg PO DAILY@0630 [facility] Stop: 05/21/23 06:29 Last Admin: 05/24/22 05:44 Dose: 100 mcg Liothyronine Sodium (Liothyronine 5 Mcg Tablet) 10 mcg PO DAILY [facility] Stop: 05/21/23 08:59 Last Admin: 05/24/22 08:56 Dose: 10 mcg Multivitamins (Multivitamin 1 Tab Tablet) 1 tab PO DAILY [facility] Stop: 05/21/23 08:59 Last Admin: 05/24/22 08:56 Dose: 1 tab Nifedipine (Nifedipine Er.24hr 30 Mg Tab.Er.24) 30 mg PO BID [facility] Stop: 05/20/23 20:59 Last Admin: 05/24/22 08:55 Dose: 30 mg Ondansetron HCl (Ondansetron 4 Mg/2 Ml Vial) 4 mg IV-PUSH Q8H PRN PRN Reason: Nausea And Vomiting Stop: 05/20/23 13:39 Oxycodone HCl (Oxycodone Ir 5 Mg Tablet) 5 mg PO Q6H PRN PRN Reason: Pain Scale 4 - 7 Pantoprazole Sodium (Pantoprazole 40 Mg Tablet.Dr) 40 mg PO BID [facility] Stop: 05/20/23 20:59 Last Admin: 05/24/22 08:56 Dose: 40 mg Potassium Chloride (Potassium Chloride Er 20 Meq Tab.Er.Prt) 40 meq PO DAILY PRN PRN Reason: Hypokalemia Stop: 05/20/23 13:39 Sodium Bicarbonate (Sodium Bicarbonate 650 Mg Tablet) 1,300 mg PO BID [facility] Stop: 05/20/23 20:59 Last Admin: 05/24/22 08:56 [...] been following with hematology clinic here in [facility] for CAROL injection . Patient missed the last appointment. Patient received 1 unit of RBC May 21. Patient also was given 1 dose of Hjochc31,000 units May 21 . Hemoglobin is 8 mg deciliter this morning. No need for RBC transfusion. Continue to monitor H&H (5) Osteomyelitis of right foot: Plan: Right foot MRI findings as as in [facility]. Patient currently covered by vancomycin and Zosyn IV. Status post amputation of the right fourth toe with I&D of right foot abscess with wound VAC placement during this admission. Podiatry service is following Documented By: Cristobal Butts MD 05/24/22 1225 Signed By: <Electronically signed by Cristobal Butts MD> 05/24/22 1226 [facility] Work Phone: Progress note Author Yvonne Barboza [facility] May 25, 2022 11:28am Note Date/Time May 25, 2022 10:3 6am [facility] [address] [place] [address] Nephrology Progress Note Signed Patient: Gopal Yates Jr MR#: [id number] : 1965 Acct:[id number] Age/Sex: 56 / M Adm Date: 3 Loc: Room: [address] [place] [address] Type: ADM IN Attending Dr: Scotty Kahn [...] been following with hematology clinic here in [facility] for CAROL injection. 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 Musculoskeletal: No joint [...] 2 Mg Tablet) 2 mg PO DAILY [facility] Stop: 05/21/23 08:59 Last Admin: 05/25/22 08:30 Dose: 2 mg Carvedilol (Carvedilol 12.5 Mg Tablet) 37.5 mg PO BID.WITH.MEALS [facility] Stop: 05/20/23 16:59 Last Admin: 05/25/22 08:30 Dose: 37.5 mg Cyproheptadine HCl (Cyproheptadine 4 Mg Tablet) 4 mg PO BID [facility] Stop: 05/23/23 20:59 Last Admin: 05/25/22 08:30 Dose: 4 mg Ezetimibe (Ezetimibe 10 Mg Tablet) 10 mg PO DAILY [facility] Stop: 05/21/23 08:59 Last Admin: 05/25/22 08:30 Dose: 10 mg Hydralazine HCl (Hydralazine 50 Mg Tablet) 50 mg PO TID [facility] Stop: 05/20/23 13:59 Last Admin: 05/25/22 08:30 Dose: 50 mg Piperacillin Sod/Tazobactam Sod (Zosyn 2.25gm) 2.25 gm in 100 mls @ 200 mls/hr IV Q6H [facility] Last Admin: 05/25/22 05:05 Dose: 200 mls/hr Insulin Glargine (Insulin Glargine 300 Units/3 Ml Insuln.Pen) 16 units SUBCUT QAM [facility] Stop: 05/21/23 08:59 Last Admin: 05/25/22 08:31 Dose: 16 units Isosorbide Dinitrate (Isosorbide Dinitrate 10 Mg Tablet) 10 mg PO TID [facility] Stop: 05/20/23 13:59 Last Admin: 05/25/22 08:30 Dose: 10 mg Levothyroxine Sodium (Levothyroxine 100 Mcg Tablet) 100 mcg PO DAILY@629 [facility] Stop: 05/21/23 06:29 Last Admin: 05/25/22 05:34 Dose: Not Given Liothyronine Sodium (Liothyronine 5 Mcg Tablet) 10 mcg PO DAILY [facility] Stop: 05/21/23 08:59 Last Admin: 05/25/22 08:31 Dose: 10 mcg Multivitamins (Multivitamin 1 Tab Tablet) 1 tab PO DAILY [facility] Stop: 05/21/23 08:59 Last Admin: 05/25/22 08:31 Dose: 1 tab Nifedipine (Nifedipine Er.24hr 30 Mg Tab.Er.24) 30 mg PO BID [facility] Stop: 05/20/23 20:59 Last Admin: 05/25/22 08:30 Dose: 30 mg Ondansetron HCl (Ondansetron 4 Mg/2 Ml Vial) 4 mg IV-PUSH Q8H PRN PRN Reason: Nausea And Vomiting Stop: 05/20/23 13:39 Oxycodone HCl (Oxycodone Ir 5 Mg Tablet) 5 mg PO Q6H PRN PRN Reason: Pain Scale 4 - 7 Pantoprazole Sodium (Pantoprazole 40 Mg Tablet.Dr) 40 mg PO BID [facility] Stop: 05/20/23 20:59 Last Admin: 05/25/22 08:31 Dose: 40 mg Potassium Chloride (Potassium Chloride Er 20 Meq Tab.Er.Prt) 40 meq PO DAILY PRN PRN Reason: Hypokalemia Stop: 05/20/23 13:39 Sodium Bicarbonate (Sodium Bicarbonate 650 Mg Tablet) 1,300 mg PO BID [facility] Stop: 05/20/23 20:59 Last Admin: 05/25/22 08:30 [...] (1,000 Units) Tablet) 50 mcg PO DAILY [facility] Stop: 05/21/23 08:59 Last Admin: 05/25/22 08:30 [...] been following with hematology clinic here in [facility] for CAROL injection . Patient missed the last appointment. Patient received 1 unit of RBC May 21. Patient also was given 1 dose of Ypwwkj82,000 units May 21 . No need for [...] <Electronically signed by Yvonne Barboza MD> 05/25/22 1128 [facility] Work Phone: Progress note Author Ashutosh Thomas [facility] May 25, 2022 11:21am Note Date/Time May 25, 2022 11:2 2am [facility] [address] [place] [address] Infect. Disease Progress Note Signed Patient: Gopal Yates Jr MR#: [id number] : 1965 Acct:[id number] Age/Sex: 56 / M Adm Date: 3 Loc: Room: [address] [place] [address] Type: ADM IN Attending Dr: Scotty Kahn [...] 12.5 Mg Tablet) 37.5 mg PO BID.WITH.MEALS [facility] Stop: 05/20/23 16:59 Last Admin: 05/25/22 08:30 Dose: 37.5 mg Cyproheptadine HCl (Cyproheptadine 4 Mg Tablet) 4 mg PO BID [facility] Stop: 05/23/23 20:59 Last Admin: 05/25/22 08:30 Dose: 4 mg Ezetimibe (Ezetimibe 10 Mg Tablet) 10 mg PO DAILY [facility] Stop: 05/21/23 08:59 Last Admin: 05/25/22 08:30 Dose: 10 mg Hydralazine HCl (Hydralazine 50 Mg Tablet) 50 mg PO TID [facility] Stop: 05/20/23 13:59 Last Admin: 05/25/22 08:30 Dose: 50 mg Piperacillin Sod/Tazobactam Sod (Zosyn 2.25gm) 2.25 gm in 100 mls @ 200 mls/hr IV Q6H [facility] Last Admin: 05/25/22 11:06 Dose: 200 mls/hr Insulin Glargine (Insulin Glargine 300 Units/3 Ml Insuln.Pen) 16 units SUBCUT QAM [facility] Stop: 05/21/23 08:59 Last Admin: 05/25/22 08:31 Dose: 16 units Isosorbide Dinitrate (Isosorbide Dinitrate 10 Mg Tablet) 10 mg PO TID [facility] Stop: 05/20/23 13:59 Last Admin: 05/25/22 08:30 Dose: 10 mg Levothyroxine Sodium (Levothyroxine 100 Mcg Tablet) 100 mcg PO DAILY@0630 [facility] Stop: 05/21/23 06:29 Last Admin: 05/25/22 05:34 Dose: Not Given Liothyronine Sodium (Liothyronine 5 Mcg Tablet) 10 mcg PO DAILY [facility] Stop: 05/21/23 08:59 Last Admin: 05/25/22 08:31 Dose: 10 mcg Multivitamins (Multivitamin 1 Tab Tablet) 1 tab PO DAILY [facility] Stop: 05/21/23 08:59 Last Admin: 05/25/22 08:31 Dose: 1 tab Nifedipine (Nifedipine Er.24hr 30 Mg Tab.Er.24) 30 mg PO BID [facility] Stop: 05/20/23 20:59 Last Admin: 05/25/22 08:30 Dose: 30 mg Ondansetron HCl (Ondansetron 4 Mg/2 Ml Vial) 4 mg IV-PUSH Q8H PRN PRN Reason: Nausea And Vomiting Stop: 05/20/23 13:39 Oxycodone HCl (Oxycodone Ir 5 Mg Tablet) 5 mg PO Q6H PRN PRN Reason: Pain Scale 4 - 7 Pantoprazole Sodium (Pantoprazole 40 Mg Tablet.Dr) 40 mg PO BID [facility] Stop: 05/20/23 20:59 Last Admin: 05/25/22 08:31 Dose: 40 mg Potassium Chloride (Potassium Chloride Er 20 Meq Tab.Er.Prt) 40 meq PO DAILY PRN PRN Reason: Hypokalemia Stop: 05/20/23 13:39 Sodium Bicarbonate (Sodium Bicarbonate 650 Mg Tablet) 1,300 mg PO BID [facility] Stop: 05/20/23 20:59 Last Admin: 05/25/22 08:30 [...] (1,000 Units) Tablet) 50 mcg PO DAILY [facility] Stop: 05/21/23 08:59 Last Admin: 05/25/22 08:30 [...] signed by MD Ashutosh Thomas> 05/25/22 1121 [facility] Work Phone: Progress note No data available for this section [facility] General Surgery [place] Summary Purpose Family History No Family History [...] Unknown Myocardial infarction Unknown Diabetes mellitus Unknown mother Malignant neoplasm of breast Unknown daughter Crohn's disease Unknown father Hypertension Unknown Unknown Heart disease Unknown Family history of mental disorder Unknown mother Malignant neoplasm Unknown Advance Directives No Advanced Directives Records [...] Reason for Visit Anemia of renal dise [facility] CKD (chronic kidney disease) stage 5, GFR [...] Reason for Visit Anemia of renal dise [facility] CKD (chronic kidney disease) stage 5, GFR [...] Reason for Visit Anemia of renal dise [facility] CKD (chronic kidney disease) stage 5, GFR [...] Complaint R foot problem, sent by dr. [email or web address] open wounds Right foot wound ESRD Reason for Visit Anemia of renal dise [facility] CKD (chronic kidney disease) stage 5, GFR [...] Complaint R foot problem, sent by dr. [id number] open wounds ESRD Right foot wound Reason for Visit Anemia of renal dise [facility] CKD (chronic kidney disease) stage 5, GFR [...] Complaint R foot problem, sent by dr. [email or web address] open wounds ESRD Right foot wound fever [...] Complaint R foot problem, sent by dr. [email or web address] open wounds ESRD L97.516 fever Right foot [...] chronic kidney disease Ulcer of right foot Chief Complaint Admit Date Loss appetite/nausea and vomiting August 102024 1:23pm Reason for Visit Admit Date Loss of appetite August 10, 2024 1:23p m Nausea & vomiting August 10, 2024 1:23p m Reason for Referral Reason *FU 01/06 eval and treat Diagnosis 1 Phlegm in throat (R0 9.89) Referral Organization [facility] Referring Provider First Name Ford Referring Provider Last Name Sindishannon Referring Provider Specialty Gastroenter ology Referred Organization [...] section and content) DATE CREATED AUTHOR 05/26/2021 [facility] DATE CREATED AUTHOR AUTHOR'S ORGANIZ ATION 06/02/2022 [facility] DATE CREATED AUTHOR AUTHOR'S ORGANIZ ATION 07/14/2022 [facility] DATE CREATED AUTHOR AUTHOR'S ORGANIZ ATION 05/12/2023 [facility] DATE CREATED AUTHOR AUTHOR'S ORGANIZ ATION 11/04/2023 [facility] DATE CREATED AUTHOR AUTHOR'S ORGANIZ ATION 09/29/2024 [facility] EPIC DATE CREATED AUTHOR AUTHOR'S ORGANIZ ATION 11/07/2024 [facility] REASON FOR VISIT (unrecogniz ed section and content) Reason Comments Established Patient Specialty Diagnoses / Procedures Referred By Conttimothy t Referred To Contact Diagnoses Anemia due to stage 3b chronic kidney disease (HCC) Procedures DARBEPOETIN FARHAT, NON-ESRD Conrad Rojas MD [address] [place] [address] [place] [address] [address] [place] [address] Referral ID Status Reason Start Date Expiration Date V isits Requested Visits Authorized [id number] Authorized 10/18/2021 12/01/2021 4 4 Reason Comments Chronic Kidney Disease 2 month follow up Reason Comments Infusions Reason Comments Anemia 2 week follow up Reason Comments Anemia 4 week follow up Referral ID Status Reason Start Date Expiration Date V isits Requested Visits Authorized [id number] Authorized 10/18/2021 03/02/2022 7 7 Referral ID Status Reason Start Date Expiration Date V isits Requested Visits Authorized [id number] Pending Review 10/18/2021 04/16/2022 11 11 Referral ID Status Reason Start Date Expiration Date V isits Requested Visits Authorized [id number] Authorized 10/18/2021 04/16/2022 11 11 Referral ID Status Reason Start Date Expiration Date V isits Requested Visits Authorized [id number] Authorized 10/18/2021 05/31/2022 15 15 Reason Comments Anemia Follow up Reason Comments Patient Update Appointment Reason Comments DM Foot Care PCP: Dr. 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 is a 59 y.o. male who presents for DM shoe measure. (PCP: Dr. Marquita JAVIER 07/2023, [place]: 07/20/24, A1C: 6.9, BS: doesn't check,SS: 12). 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 Patient received 1 pr Comfort shoes and 1 pair Custom inserts. 12W. BS 125 A1C [address].7Dr. Marquita 06/2024 Reason Onset Date Comments Advice Only 10/09/2024 Keeping DM Shoes Source Comments (unrecognize d section and content) In the event this informatio n is protected by the Federal Confidentiality of Alcohol and Drug Abuse Patient Records regulations: The Federal rules restrict any use of the information to criminally investigate or prosecute any alcohol or drug abuse patient.[facility] the event this information is protected by the Federal Confidentiality of Alcohol and Drug Abuse Patient Records regulations: The Federal rules restrict any use of the information to criminally investigate or prosecute any alcohol or drug abuse patient.[facility] the event this information is protected by the Federal Confidentiality of Alcohol and Drug Abuse Patient Records regulations: The Federal rules restrict any use of the information to criminally investigate or prosecute any alcohol or drug abuse patient.[facility] the event this information is protected by the Federal Confidentiality of Alcohol and Drug Abuse Patient Records regulations: The Federal rules restrict any use of the information to criminally investigate or prosecute any alcohol or drug abuse patient.[facility] Hospital[facility] the event this information is protected by the Federal Confidentiality of Alcohol and Drug Abuse Patient Records regulations: The Federal rules restrict any use of the information to criminally investigate or prosecute any alcohol or drug abuse patient.[facility] Hospital[facility] the event this information is protected by the Federal Confidentiality of Alcohol and Drug Abuse Patient Records regulations: The Federal rules restrict any use of the information to criminally investigate or prosecute any alcohol or drug abuse patient.[facility] Hospital[facility] the event this information is protected by the Federal Confidentiality of Alcohol and Drug Abuse Patient Records regulations: The Federal rules restrict any use of the information to criminally investigate or prosecute any alcohol or drug abuse patient.[facility] Hospital[facility] the event this information is protected by the Federal Confidentiality of Alcohol and Drug Abuse Patient Records regulations: The Federal rules restrict any use of the information to criminally investigate or prosecute any alcohol or drug abuse patient.[facility] Hospital[facility] the event this information is protected by the Federal Confidentiality of Alcohol and Drug Abuse Patient Records regulations: The Federal rules restrict any use of the information to criminally investigate or prosecute any alcohol or drug abuse patient.[facility] Hospital[facility] the event this information is protected by the Federal Confidentiality of Alcohol and Drug Abuse Patient Records regulations: The Federal rules restrict any use of the information to criminally investigate or prosecute any alcohol or drug abuse patient.[facility] Hospital[facility] the event this information is protected by the Federal Confidentiality of Alcohol and Drug Abuse Patient Records regulations: The Federal rules restrict any use of the information to criminally investigate or prosecute any alcohol or drug abuse patient.[facility] Hospital[facility] the event this information is protected by the Federal Confidentiality of Alcohol and Drug Abuse Patient Records regulations: The Federal rules restrict any use of the information to criminally investigate or prosecute any alcohol or drug abuse patient.[facility] HospitalIn the event this information is protected by the Federal Confidentiality of Alcohol and Drug Abuse Patient Records regulations: The Federal rules restrict any use of the information to criminally investigate or prosecute any alcohol or drug abuse patient.[facility] HospitalIn the event this information is protected by the Federal Confidentiality of Alcohol and Drug Abuse Patient Records regulations: The Federal rules restrict any use of the information to criminally investigate or prosecute any alcohol or drug abuse patient.[facility] HospitalIn the event this information is protected by the Federal Confidentiality of Alcohol and Drug Abuse Patient Records regulations: The Federal rules restrict any use of the information to criminally investigate or prosecute any alcohol or drug abuse patient.[facility] Care Teams (unrecognized sec tion and content) Team Status: Active Member Role Status Dates Douglas Juárez MD Primary Care Provider Active Team Status: Active Member Role Status Dates Douglas Juárez MD Primary Care Provider Active Start: June 12, 2024 Yvonne Barboza MD Attending Provider Active Start : June 12, 2024 Team Status: Inactive Member Role Status Dates Douglas Juárez MD Primary Care Provider Active Start: August 10, 2024 End: August 10, 2024 Ford Sam MD Attending Provider Active S tart: August 10, 2024 End: August 10, 2024 Team Status: Inactive Member Role Status Dates Douglas Juárez MD Primary Care Provider Active Sohan Kellogg MD Attending Provider Active Team Status: Inactive Member Role Status Dates Douglas Juárez MD Primary Care Provider Active Eddy Indu , DPM Attending Provider Active Team Status: Inactive Member Role Status Dates Douglas Juárez MD Primary Care Provider Active Gopal Larsen MD Emergency Provider Active Salvador Alonso MD Admit Provider Active Ashutosh Thomas MD Other Provider Active Cristobal Butts MD Other Provider Active Primo Luis , DPM Other Provider Active Scotty Kahn DO Attending Provider Active Team Status: Inactive Member Role Status Dates Douglas Juárez MD Primary Care Provider Active Lambert Blanc DO Emergency Provider Active Cornelio Simon MD Admit Provider, Attending P juander Active Ashutosh Thomas MD Other Provider Active Yvonne Barboza MD Other Provider Active Eddy Griggs , DPM Other Provider Active Sohan Kellogg MD Other Provider Active Team Status: Active Member Role Status Dates Douglas Juárez MD Primary Care Provider Active Eddy Nida , DPM Attending Provider Active Shoveler Relationship Specialty Start Date End Date Douglas Juárez MD [address] [place] [address] PCP - General Family Practice 09/29/21 Shoveler Relationship Specialty Start Date End Date Douglas Juárez MD [address] [place] [id number] PCP - General Family Practice 09/29/21 Shoveler Relationship Specialty Start Date End Date Douglas Juárez MD [address] [place] [id number] PCP - General Family Practice 09/29/21 Shoveler Relationship Specialty Start Date End Date Douglas Juárez MD [address] [place] [address] PCP - General Family Practice 09/29/21 Shoveler Relationship Specialty Start Date End Date Douglas Juárez MD [address] [place] [id number] PCP - General Family Practice 09/29/21 Team Status: Inactive Member Role Status Dates Douglas Juárez MD Primary Care Provider Active Cristobal Butts MD Attending Provider Active Shoveler Relationship Specialty Start Date End Date Douglas Juárez MD [address] [place] [id number] PCP - General Family Practice 09/29/21 Shoveler Relationship Specialty Start Date End Date Douglas Juárez MD [address] [place] [id number] PCP - General Family Medicine 09/29/21 Shoveler Relationship Specialty Start Date End Date Douglas Juárez MD [address] [id number] PCP - General Family Medicine 09/29/21 Shoveler Relationship Specialty Start Date End Date Douglas Juárez MD [address] [id number] PCP - General Family Medicine 09/29/21 Shoveler Relationship Specialty Start Date End Date Douglas Juárez MD [address] [place] [address] PCP - General Family Medicine 09/29/21 Shoveler Relationship Specialty Start Date End Date Douglas Juárez MD [address] [place] [address] PCP - General Family Medicine 09/29/21 Shoveler Relationship Specialty Start Date End Date Douglas Juárez MD [address] [place] [address] PCP - General Family Medicine 09/29/21 Team [...] Active Primo Luis DPM Other Provider Active Shoveler Relationship Specialty Start Date End Date Douglas Juárez MD PCP - General Family Medicine 09/29/21 Team Status: Active Member Role Status Dates Douglas Juárez MD Primary Care Provider Active Gopal Larsen MD Emergency Provider Active Caleb Farrar MD Admit Provider, Attending Alyssai nba Active Team Status: Inactive Member Role Status Dates Douglas Juárez MD Primary Care Provider Active Gopal Larsen MD Emergency Provider Active Caleb Farrar MD Admit Provider Active Ashutosh Thomas MD Other Provider Active Cristobal Butts MD Other Provider Active Eddy Griggs DPM Other Provider Active Vikash Pope DO Attending Provider Active Shoveler Relationship Specialty Start Date End Date Douglas Juárez MD [address] [place] [address] PCP - General Family Medicine 08/12/22 Shoveler Relationship Specialty Start Date End Date Douglas Juárez MD [address] [place] [address] PCP - General Family Medicine 08/12/22 Shoveler Relationship Specialty Start Date End Date Douglas Juárez MD [address] [place] [facility] [address] PCP - General Family Medicine 08/12/22 Shoveler Relationship Specialty Start Date End Date Douglas Juárez MD [address] [place] [facility] [address] PCP - General Family Medicine 08/12/22 Shoveler Relationship Specialty Start Date End Date Douglas Juárez MD [address] [place] [facility] [place] [address] PCP - General Family Medicine 08/12/22 Shoveler Relationship Specialty Start Date End Date Douglas Juárez MD [address] [place] [facility] [place] [address] PCP - General Family Medicine 08/12/22 Shoveler Relationship Specialty Start Date End Date Douglas Juárez MD [address] [place] [facility] [address] PCP - General Family Medicine 08/12/22 Shoveler Relationship Specialty Start Date End Date Douglas Juárez MD [address] [place] [facility] [place] [address] PCP - General Family Medicine 08/12/22 Shoveler Relationship Specialty Start Date End Date Douglas Juárez MD [address] [place] [facility] [place] [address] PCP - General Family Medicine 08/12/22 Goals (unrecognized section and content) Goals may [...] BE BASED ON THE PRIMARY CLINICAL RECORDS. [facility], [facility]. provides no warranty or guarantee of the accuracy or completeness of information in this document.
== END 2024-11-08 12:48 | disposition home or self-care (01) ==
LOC: US 12:47
PROVIDERS: PCP Family Medicine; Visit Provider Nurse Practitioner
DX: I25.10 Atherosclerotic heart disease of native coronary artery without angina pectoris (principal); I73.9 Peripheral vascular disease, unspecified; R09.89 Other specified symptoms and signs involving the circulatory and respiratory systems
CPT/HCPCS: 93880; 93925

== ENCOUNTER 2024-11-17 12:46 | Outpatient (OUT) | payer MEDICARE, MEDICAID, SELFPAY ==
--- OUTSIDE RECORDS SUMMARY | 2023-10-11 10:26 | XMS_ITS ---
Author Organization [facility] in [place] Address [address] [place] [address] Care Team Providers Care Marine Geologist Name Role Phone Gamal Cartwright Primary Care Provider Medications Medication SIG (Take, Route, Frequency, Duration) Notes Start Date End Date Status Pravastatin Sodium 40 mg TAKE ONE TABLET BY MOUTH ONCE DAILY for 30 days Active hydrALAZINE HCl 50 MG 1 tablet with food Orally BID for 30 days Active Encounters Encounter Location Date Provider Diagnosis [facility] [address] [place] [address] 10/11/2023 Gamal Cartwright Acute non-recurrent sinusitis, unspecified location J01.90 Assessments Encounter Date Diagnosis (ICD Code) Assessment Notes Treatment Notes Treatment Clinical Notes Section Notes 10/11/2023 Acute non-recurrent sinusitis, unspecified location (ICD-10 - J01.90) Plan Of Treatment Medication Medication Name Sig Start Date Stop Date Notes Pravastatin Sodium 40 mg TAKE ONE TABLET BY MOUTH ONCE DAILY for 30 days hydrALAZINE HCl 50 MG 1 tablet with food Orally BID for 30 days Progress Notes * Franklin YATES JrDOB: [birth year] (58 yo M)Acc No.[id number]:10/11/2023 Patient: Yojana LIRIANOFranklin Jr :1965 A ge:58 Y S ex:Male Address:[address] [place] [address], [phone] * Refills Refill hydrALAZINE HCl Tablet, 50 MG, Orally, 60 Tablet, 1 tablet with food, BID, 30 days, Refills=11 Refill Pravastatin Sodium Tablet, 40 mg, 30 Each, TAKE ONE TABLET BY MOUTH ONCE DAILY, 30 days, Refills=11 * true * Date: Generated for Crescencio malik/Elder/Patsyitting on: 0 11/17/2024 12:49 PM EDT
--- OUTSIDE RECORDS SUMMARY | 2023-11-02 07:04 | XMS_ITS ---
Author Organization [facility] in [place] Address [address] [place] [address] Care Team Providers Care Senior Writer Name Role Phone Gamal Cartwright Primary Care Provider Medications Medication SIG (Take, Route, Frequency, Duration) Notes Start Date End Date Status Lantus SoloStar 100 UNIT/ML INJECT 16 UNITS SUB Q DAILY (83 DAY SUPPLY) for 30 days Active Encounters Encounter Location Date Provider Diagnosis [facility] [address] [place] [address] 11/02/2023 Gamal Cartwright Plan Of Treatment Medication Medication Name Sig Start Date Stop Date Notes Lantus SoloStar 100 UNIT/ML INJECT 16 UN ITS SUB Q DAILY (83 DAY SUPPLY) for 30 days Progress Notes * Franklin YATES JrDOB: [birth year] (58 yo M)Acc No.[id number]:11/02/2023 Patient: Yojana LIRIANOFranklin Jr :1965 A ge:58 Y S ex:Male Address:[address] [place], [address] * Refills Refill Lantus SoloStar Solution Pen-injector, 100 UNIT/ML, 15 Milliliter, INJECT 16 UNITS SUB Q DAILY (83 DAY SUPPLY), 30 days, Refills=11 * true * Date: Generated for Printi ng/Faxing/eTransmitting on: 0 11/17/2024 12:48 PM EDT
--- OUTSIDE RECORDS SUMMARY | 2024-07-14 10:24 | XMS_ITS ---
Author Organization The [facility] in [place] Address [address] [place] [address] Care Team Providers Care Mobility Manager Name Role Phone Gamal Cartwright Primary Care Provider REASON FOR VISIT lantus not covered Medications Medication SIG (Take, Route, Frequency, Duration) Notes Start Date End Date Status Basaglar KwikPen 100 UNIT/ML inject 16 units Subcutaneous once daily for 90 days 07/14/2024 Active Encounters Encounter Location Date Provider Diagnosis [facility] [address] [place] [address] 07/14/2024 Gamal Gabbie Plan Of Treatment Medication Medication Name Sig Start Date Stop Date Notes Basaglar KwikPen 100 UNIT/ML inject 16 u nits Subcutaneous once daily for 90 days 07/14/2024 Progress Notes * Franklin YATES JrDOB: [birth year] (58 yo M)Acc No.[id number]:07/14/2024 Patient: Yojana LIRIANOFranklin Jr :1965 A ge:58 Y S ex:Male Address:[address] [place] [address], [address] * Refills Start Basaglar KwikPen Solution Pen-injector, 100 UNIT/ML, Subcutaneous, 3, inject 16 units, once daily, 90 days, Refills=3 * true * Date: Generated for Printi ng/Faxing/eTransmitting on: 0 11/17/2024 12:48 PM EDT
--- OUTSIDE RECORDS SUMMARY | 2024-07-20 09:15 | XMS_ITS ---
Author Organization The [facility] in [place] Address [address] [place] [address] Care Team Providers Care Lock Assembler Name Role Phone Gamal Cartwright Primary Care Provider Allergies Allergen (clinical drug ingredient) Drug/Non Drug Allergy documented on EMR Reaction Allergy Type Onset Date Status Substance with sulfonamide structure and antibacterial mechanism of action (substance) Sulfa Antibiotics Unknown Drug Allergy Active REASON FOR VISIT Yearly check-up, Dr Simmons office called over- needs documentation about diabetes and the need fordiabetic foot supplies- ppw being sent over to fill out, meds insurance wont pay for some Medications Medication SIG (Take, Route, Frequency, Duration) Notes Start Date End Date Status Pravastatin Sodium 40 mg TAKE ONE TABLET BY MOUTH ONCE DAILY for 30 days Active Sevelamer Carbonate 800 MG Oral for 23 Days Active Omeprazole 40 mg TAKE 1 CAPSULE BY MO UTH TWICE A DAY for 30 days Active One Touch Ultra Test Strips - Active Levothyroxine Sodium 100 MCG TAKE ONE TABLET BY MOUTH ONCE DAILY for 30 Active Nephro-Jose 0.8 MG TAKE ONE TABLET BY M OUTH ONCE DAILY Oral for 24 Days Active NIFEdipine ER Osmotic Release 30 mg TAKE ONE TABLET BY MOUTH TWICE A DAY for 30 Active Liothyronine Sodium 5 MCG TAKE TWO TABLE TS BY MOUTH ONCE DAILY for 30 days Active Nabumetone 500 MG 2 tablets Orally Twi ce a day for 30 07/23/2023 Active Insulin Aspart 100 UNIT/ML 16 units Subcutaneous am Active Isosorbide Dinitrate 10 MG 1 tablet Oral ly Twice a day for 30 day(s) Active Fluticasone Propionate 50 MCG/ACT 1 spray in each nostril Nasally Once a day for 30 day(s) Active hydrALAZINE HCl 50 MG 1 tablet with food Orally BID for 30 days Active Lancets - as directed Active Dexcom G6 Cleaning Manager - as directed Active Compression Stocking Below Knee 20-30mmHg - Active Easy Comfort Pen [place] 31G X 8 MM as directed Active Dexcom G6 Sensor - as directed Active Dexcom G6 Transmitter - as directed Active Basaglar KwikPen 100 UNIT/ML inject 16 units Subcutaneous once daily for 90 days 07/14/2024 Active Bumetanide 2 MG 2 tablets Orally BID for 30 days Active Aspirin 81 MG 1 tablet Orally Once a day for 30 day(s) Active Carvedilol 25 MG 1 tablet with food O rally Twice a day for 30 days Active Social History Tobacco Use: Social History Observation Description Date Details (start date - stop date) Former Smoker 03/22/1982 - 03/22/1994 Tobacco Use/Smoking Question Answer Notes Patient is a former smoker When did you start smoking? 03/22/1982 When did you stop smoking? 03/22/1994 How long has it been since you last smoked? > 10 years Vital Signs Weight 221.8 lbs 07/20/2024 Height 76 in 07/20/2024 Blood pressure systolic 124 mm Hg 07/21/19 25 Blood pressure diastolic 74 mm Hg 025 BMI 27 kg/m2 07/20/2024 Encounters Encounter Location Date Provider Diagnosis [address] [address] 07/20/2024 Gamal Hoy Dyspnea R06.00 ; Metabolic acidosis E87.20 ; Type 2 diabetes mellitus with foot ulcer E11.621 and CAD (coronary artery disease) I25.10 Assessments Encounter Date Diagnosis (ICD Code) Assessment Notes Treatment Notes Treatment Clinical Notes Section Notes 07/20/2024 Dyspnea (ICD-10 - R06.00) 07/20/2024 Metabolic acidosis (ICD-10 - E87.20) 07/20/2024 Type 2 diabetes mellitus with foot ulcer (ICD-10 - E11.621) 07/20/2024 CAD (coronary artery disease) (ICD-10 - I25.10) Plan Of Treatment Medication Medication Name Sig Start Date Stop Date Notes Lantus SoloStar 100 UNIT/ML INJECT 16 UN ITS SUB Q DAILY (83 DAY SUPPLY) Ezetimibe 10 MG 1 tablet Orally Once a day Pending Test Test Name Order Date HEMOGLOBIN A1C (GLYCO) 07/20/2024 IRON, TOTAL 07/20/2024 LIPID PANEL (CHOL/TRIG/HDL/LDL) 07/21/19 25 VITAMIN D, 25 LEVEL (TOTAL) 07/20/2024 THYROID PANEL (T4/TSH/FREE T3) 5 CMP (COMP MET STANLEY) w/eGFR CKD-EPI 2024 CBC WITH DIFF 07/20/2024 Progress Notes * Franklin YATES JrDOB: [birth year] (58 yo M)Acc No.[id number]:07/20/2024 Progress Note Patient: Franklin MARTINEZ Jr Provider: Zackery Cartwright ([facility])MD :1965 A ge:58 Y S ex:Male Date:07/20/2024 Address:[address] [place], [place] [id number] Check In:01:06 PM ESTCheck O ut:02:05 PM EST Subjective: * Chief Complaints: * Y early check-upDr Rushers office called over- needs documentation about diabetes and the need for diabetic foot supplies- ppw being sent over to fill outMeds insurance wont pay for some * HPI: D epression Screening: PHQ-2 (2015 Edition) L ittle interest or pleasure in doing things??Not at all F eeling down, depressed, or hopeless? N ot at all T otal Score 0 compehensive diabetes care providded today reviewed medication reviewed symptomns of the neuropathy - stabdy need diabetic shoes - has had toe amputations and needs. * ROS: E ENT: hearing changes d enies. v isual changes d enies.?non-healing mouth sores d enies. s wollen glands or neck lumps d enies. h oarseness d enies. s ore throat d enies. d ifficulty swallowing d enies. n ose bleeds d enies. n darleen congestion d enies. e ar ache d enies. e ar discharge?denies. r inging in ears d enies. l ight sensitivity d enies. e ye pain d enies. b lurring d enies. e ye irritation d enies. d ouble vision d enies.?vision loss d enies. G eneral/Constitutional: Sweats: D enies. F atigue d enies. S leep problems d enies. A norexia d enies. M alaise d enies. W eight loss d enies.?Fatigue or Weakness d enies. F ever or Chills d enies. C ardiovascular: Shortness of Breath w/lying flat d enies. L ightheadedness/dizziness d enies. C hest tightness/ heavy pressure d enies. S welling of legs, ankles, or feet d enies. W aking up with shortness of breath d enies. C hest pain denies. P alpitations d enies. W eight gain d enies. R espiratory: Chronic or frequent cough d enies. C oughing up blood?denies. D ifficulty breathing d enies. P roductive cough d enies. S noring?denies. S hortness of breath that awakens from sleep (PND) d enies. C hest pain d enies. S putum production d enies. W heezing d enies. M usculoskeletal: Joint pain d enies. J oint Fluid d enies. B ack pain d enies. K nee pain d enies. N carmelita pain d enies. J oint Stiffness d enies. M uscle cramps d enies. W eakness of muscles d enies. A rthritis d enies. M uscle aches d enies. P ain in shoulder(s) d enies. S wollen joints d enies. * Active Problem List J11.89 Influenza due to uni dentified influenza virus with other manifestations Modified On:06/16/2022 Status:confirmed R00.2 Palpitations Modified On:06/16/2022 Status:confirmed R05 Cough Modified On:06/16/2022 Status:confirmed R35.1 Nocturia Modified On:06/16/2022 Status:confirmed Z20.828 Contact with and (adams spected) exposure to other viral communicable diseases Modified On:06/16/2022 Status:confirmed R53.83 Fatigue Modified On:06/16/2022 Status:confirmed R60.9 Edema Modified On:06/16/2022 Status:confirmed R06.00 Dyspnea Modified On:06/16/2022 Status:confirmed Z00.00 Well adult Modified On:06/16/2022 Status:confirmed R11.2 Nausea & vomiting Modified On:06/16/2022 Status:confirmed R91.8 Multiple pulmonary n odules Modified On:10/22/2022 Status:confirmed Z87.891 History of tobacco a buse Modified On:10/22/2022 Status:confirmed A08.4 Viral gastroenteriti s Modified On:06/16/2022 Status:confirmed E87.20 Metabolic acidosis Modified On:06/16/2022 Status:confirmed N18.6 End stage renal dise ase Modified On:07/07/2022 Status:confirmed M86.9 Osteomyelitis Modified On:06/16/2022 Status:confirmed L97.511 Non-pressure chronic ulcer of other part of right foot limited to breakdown of skin Modified On:06/16/2022 Status:confirmed E11.621 Type 2 diabetes maxim itus with foot ulcer Modified On:04/09/2023 Status:confirmed E10.9 Insulin dependent di abetes mellitus type IA Modified On:07/07/2022 Status:confirmed J32.9 Chronic sinusitis Modified On:06/16/2022 Status:confirmed I25.2 History of HI (myoca rdial infarction) Modified On:06/16/2022 Status:confirmed I25.10 CAD (coronary artery disease) Modified On:06/16/2022 Status:confirmed E11.21 Diabetic nephropathy Modified On:06/16/2022 Status:confirmed E11.22 Chronic kidney disea se due to diabetes mellitus Modified On:06/16/2022 Status:confirmed I50.41 Acute combined systo lic (congestive) and diastolic (congestive) heart failure Modified On:06/16/2022 Status:confirmed E03.9 Hypothyroidism Modified On:04/09/2023 Status:confirmed I51.9 Diastolic dysfunctio n Modified On:06/16/2022 Status:confirmed F41.9 Anxiety Modified On:06/16/2022 Status:confirmed K21.9 Gastro-esophageal re flux disease Modified On:06/16/2022 Status:confirmed R53.82 CFS (chronic fatigue syndrome) Modified On:06/16/2022 Status:confirmed I10 HTN (hypertension) Modified On:06/16/2022 Status:confirmed E78.5 Hyperlipidemia Modified On:06/16/2022 Status:confirmed F41.0 Panic attack Modified On:06/16/2022 Status:confirmed F69 Behavior problem Modified On:06/16/2022 Status:confirmed E11.9 Controlled type 2 di abetes mellitus Modified On:06/16/2022 Status:confirmed F52.21 ED (erectile dysfunc tion) of non-organic origin Modified On:06/16/2022 Status:confirmed J90 Pleural effusion, no t elsewhere classified Modified On:10/22/2022 Status:confirmed E78.00 Pure hypercholestero lemia, unspecified Modified On:04/09/2023 Status:confirmed Z99.2 Dialysis patient Modified On:04/21/2023 Status:confirmed M25.512 Shoulder pain, left Modified On:07/23/2023 Status:confirmed * Medical History: * Surgical History: r ight foot- 4th and 5th digit amputation peritoneal dialysis catheter * Hospitalization/Major Diagno stic Procedure: s ee above * Family History: F ather: , COPD, stroke, diagnosed with Diabetes mellitus without mention of complication, type II or unspecified type, not stated as uncontrolled, Unspecified essential hypertension, Unspecified heart disease. M other: , breast cancer, diagnosed with Other malignant neoplasm of unspecified site, Unspecified essential hypertension. D aughter(s): alive. 2 daughter(s) - healthy. . * Social History: T obacco Use: E lectronic Cigarette use C urrent user N o LM: Additional Tobacco Questions N umber of Years Pt Smoked: 4 N umber of Packs per Day: 1 When did you stop smokin years ago. Tobacco Use/Smoking P atient is a f ormer smoker W hen did you start smoking? 0 03/22/1982 W hen did you stop smoking? 0 03/22/1994 H ow long has it been since you last smoked??> 10 years * Medications: T akingAspirin 81 MG Tablet Chewable 1 tablet Orally Once a day Basaglar KwikPen(Insulin Glargine) 100 UNIT/ML Solution Pen-injector inject 16 units Subcutaneous once daily Bumetanide 2 MG Tablet 2 tablets Orally BID Carvedilol 25 MG Tablet 1 tablet with food Orally Twice a day Compression Stocking Below Knee 20-30mmHg - - Dexcom G6 Cleaning Manager(Continuous Glucose Cleaning Manager) - Device as directed Dexcom G6 Sensor(Continuous Glucose Sensor) - Miscellaneous as directed Dexcom G6 Transmitter(Continuous Glucose Transmitter) - Miscellaneous as directed Easy Comfort Pen [place](Insulin Pen Needle) 31G X 8 MM Miscellaneous as directed Ezetimibe 10 MG Tablet 1 tablet Orally Once a day Fluticasone Propionate 50 MCG/ACT Suspension 1 spray in each nostril Nasally Once a day hydrALAZINE HCl 50 MG Tablet 1 tablet with food Orally BID Insulin Aspart 100 UNIT/ML Solution Pen-injector 16 units Subcutaneous am Isosorbide Dinitrate 10 MG Tablet 1 tablet Orally Twice a day Lancets - Miscellaneous as directed Lantus SoloStar(Insulin Glargine) 100 UNIT/ML Solution Pen-injector INJECT 16 UNITS SUB Q DAILY (83 DAY SUPPLY) Levothyroxine Sodium 100 MCG Tablet TAKE ONE TABLET BY MOUTH ONCE DAILY Liothyronine Sodium 5 MCG Tablet TAKE TWO TABLETS BY MOUTH ONCE DAILY Nabumetone 500 MG Tablet 2 tablets Orally Twice a day Nephro-Jose(B Oqedcht-Q-Pruqm Acid) 0.8 MG Tablet TAKE ONE TABLET BY MOUTH ONCE DAILY Oral NIFEdipine ER Osmotic Release 30 mg Tablet Extended Release 24 Hour TAKE ONE TABLET BY MOUTH TWICE A DAY Omeprazole 40 mg Capsule Delayed Release TAKE 1 CAPSULE BY MOUTH TWICE A DAY One Touch Ultra Test Strips - Miscellaneous Pravastatin Sodium 40 mg Tablet TAKE ONE TABLET BY MOUTH ONCE DAILY Sevelamer Carbonate 800 MG Tablet Oral Taking Aspirin 81 MG Tablet Chewable 1 tablet Orally Once a day Taking Basaglar KwikPen(Insulin Glargine) 100 UNIT/ML Solution Pen-injector inject 16 units Subcutaneous once daily Taking Bumetanide 2 MG Tablet 2 tablets Orally BID Taking Carvedilol 25 MG Tablet 1 tablet with food Orally Twice a day Taking Compression Stocking Below Knee 20-30mmHg - - Taking Dexcom G6 Cleaning Manager(Continuous Glucose Cleaning Manager) - Device as directed Taking Dexcom G6 Sensor(Continuous Glucose Sensor) - Miscellaneous as directed Taking Dexcom G6 Transmitter(Continuous Glucose Transmitter) - Miscellaneous as directed Taking Easy Comfort Pen [place](Insulin Pen Needle) 31G X 8 MM Miscellaneous as directed Taking Ezetimibe 10 MG Tablet 1 tablet Orally Once a day Taking Fluticasone Propionate 50 MCG/ACT Suspension 1 spray in each nostril Nasally Once a day Taking hydrALAZINE HCl 50 MG Tablet 1 tablet with food Orally BID Taking Insulin Aspart 100 UNIT/ML Solution Pen-injector 16 units Subcutaneous am Taking Isosorbide Dinitrate 10 MG Tablet 1 tablet Orally Twice a day Taking Lancets - Miscellaneous as directed Taking Lantus SoloStar(Insulin Glargine) 100 UNIT/ML Solution Pen-injector INJECT 16 UNITS SUB Q DAILY (83 DAY SUPPLY) Taking Levothyroxine Sodium 100 MCG Tablet TAKE ONE TABLET BY MOUTH ONCE DAILY Taking Liothyronine Sodium 5 MCG Tablet TAKE TWO TABLETS BY MOUTH ONCE DAILY Taking Nabumetone 500 MG Tablet 2 tablets Orally Twice a day Taking Nephro-Jose(B Ycbnlkx-I-Ldzhx Acid) 0.8 MG Tablet TAKE ONE TABLET BY MOUTH ONCE DAILY Oral Taking NIFEdipine ER Osmotic Release 30 mg Tablet Extended Release 24 Hour TAKE ONE TABLET BY MOUTH TWICE A DAY Taking Omeprazole 40 mg Capsule Delayed Release TAKE 1 CAPSULE BY MOUTH TWICE A DAY Taking One Touch Ultra Test Strips - Miscellaneous Taking Pravastatin Sodium 40 mg Tablet TAKE ONE TABLET BY MOUTH ONCE DAILY Taking Sevelamer Carbonate 800 MG Tablet Oral DiscontinuedAmoxicillin-Pot Clavulanate 875-125 MG Tablet 1 tablet Orally every 12 hrs Medication List reviewed and reconciled with the patientDiscontinued Amoxicillin-Pot Clavulanate 875-125 MG Tablet 1 tablet Orally every 12 hrs Medication List reviewed and reconciled with the patient * Allergies: S ulfa Antibiotics: Allergyno[Allergies Verified] Objective: * Vitals: W t:221.8lbs, Ht: 76 in, BP:124/74mm Hg, BMI:27Index, Ht-cm: 193.04 cm, Wt-k.61 kg. * Examination: P hysical Exam: GENERAL: w ell developed, well nourished, in no acute distress. HEAD: n ormocephalic/atraumatic. EYES: p upils equal, round and reactive to light, conjunctivae and sclerae normal. EARS: n o deformity or lesion of external ear, canals and TM appear normal bilaterally, TM's intact, not inflamed with normal light reflex, hearing grossly normal to conversational speech. NOSE: n o deformity, discharge, inflammation, or lesions.? MOUTH: m ucous membranes moist, normal oropharynx and posterior pharynx without lesions or exudates, tongue normal, dentition normal. NECK: n carmelita supple, no masses or palpable cervical nodes, trachea midline, thyroid without nodules, masses, tenderness, or enlargement. CHEST: n o chest wall deformity, no chest wall tenderness.? LUNGS: n ormal respiratory effort and clear to auscultation, no wheezes, rales, or rhonchi, good air exchange. CARDIO: r egular rate and rhythm, normal S1 and S2, nor murmur, rub, or gallop. PULSES: n ormal capillary refill. ABDOMEN: s oft, non-distended, non-tender, no masses. MUSCULOSKELETAL: n o deformity or scoliosis noted, normal range of motion, joints normal, no erythema, edema, effusion, or ecchymosis. EXTREMITY: n o clubbing, cyanosis, edema, or deformity with normal ROM in both upper and lower bilateral extremities. NEUROLOGIC: g rossly normal. SKIN: n o rashes, ulcerations, or suspicious lesions. LYMPH NODES: n o cervical adenopathy, nodes normal. MENTAL STATUS: a lert and oriented x3, normal mood and affect. Assessment: * Assessment: 1. D yspnea - R06.00 (Primary) 2 . M etabolic acidosis - E87.20 ?3. T ype 2 diabetes mellitus with foot ulcer - E11.621 4 . C AD (coronary artery disease) - I25.10 Plan: * Treatment: 2. M etabolic acidosis L AB: HEMOGLOBIN A1C (GLYCO) L AB: IRON, TOTAL L AB: LIPID PANEL (CHOL/TRIG/HDL/LDL) L AB: VITAMIN D, 25 LEVEL (TOTAL) L AB: THYROID PANEL (T4/TSH/FREE T3) L AB: CMP (COMP MET STANLEY) w/eGFR CKD-EPI L AB: CBC WITH DIFF 3. T ype 2 diabetes mellitus with foot ulcer L AB: HEMOGLOBIN A1C (GLYCO) L AB: IRON, TOTAL L AB: LIPID PANEL (CHOL/TRIG/HDL/LDL) L AB: VITAMIN D, 25 LEVEL (TOTAL) L AB: THYROID PANEL (T4/TSH/FREE T3) L AB: CMP (COMP MET STANLEY) w/eGFR CKD-EPI L AB: CBC WITH DIFF 4. C AD (coronary artery disease) L AB: HEMOGLOBIN A1C (GLYCO) L AB: IRON, TOTAL L AB: LIPID PANEL (CHOL/TRIG/HDL/LDL) L AB: VITAMIN D, 25 LEVEL (TOTAL) L AB: THYROID PANEL (T4/TSH/FREE T3) L AB: CMP (COMP MET STANLEY) w/eGFR CKD-EPI L AB: CBC WITH DIFF 5. O thers Stop Lantus SoloStar Solution Pen-injector, 100 UNIT/ML, INJECT 16 UNITS SUB Q DAILY (83 DAY SUPPLY); S top Ezetimibe Tablet, 10 MG, 1 tablet, Orally, Once a day. * Procedure Codes: * Preventive Medicine: Screenings/Counseling: B HI ACTION PLAN Above Normal BMI Follow-up D ietary management education, guidance, and counseling * * Sign off status: Completed Visit Status: C HK (Check Out) true * Provider: Zackery Cartwright ([facility])MD Date: 0 07/20/2024 Generated for Berenicei king/Elder/eTransmitting on: 0 11/17/2024 12:48 PM EDT History and Physical Notes * HPI (History of Present Illness) Category Sub-Category Detail Notes Category Not es Depression Screening PHQ-2 (2015 Edition) Little interest or pleasure in doing things?: Not at all compehensive diabetes care providded today reviewed medication reviewed symptomns of the neuropathy - stabdy need diabetic shoes - has had toe amputations and needs Feeling down, depressed, or hopeless?: N ot at all Total Score: 0 Examination Category Sub-Category Detail Notes Category Not es Physical Exam GENERAL: well developed, well nourished, in no acute distress HEAD: normocephalic/atraum atic EYES: pupils equal, round and reactive to light, conjunctivae and sclerae normal EARS: no deformity or lesi on of external ear, canals and TM appear normal bilaterally, TM's intact, not inflamed with normal light reflex, hearing grossly normal to conversational speech NOSE: no deformity, discha rge, inflammation, or lesions MOUTH: mucous membranes lukas st, normal oropharynx and posterior pharynx without lesions or exudates, tongue normal, dentition normal NECK: neck supple, no mass es or palpable cervical nodes, trachea midline, thyroid without nodules, masses, tenderness, or enlargement CHEST: no chest wall deform ity, no chest wall tenderness LUNGS: normal respiratory e ffort and clear to auscultation, no wheezes, rales, or rhonchi, good air exchange CARDIO: regular rate and rhy thm, normal S1 and S2, nor murmur, rub, or gallop PULSES: normal capillary ref ill ABDOMEN: soft, non-distended, non-tender, no masses RECTAL: MUSCULOSKELETAL: no deformity or scol iosis noted, normal range of motion, joints normal, no erythema, edema, effusion, or ecchymosis EXTREMITY: no clubbing, cyanosi s, edema, or deformity with normal ROM in both upper and lower bilateral extremities NEUROLOGIC: grossly normal SKIN: no rashes, ulceratio ns, or suspicious lesions LYMPH NODES: no cervical adenopat hy, nodes normal MENTAL STATUS: alert and oriented x 3, normal mood and affect
--- OUTSIDE RECORDS SUMMARY | 2024-09-11 06:39 | XMS_ITS ---
Author Organization [facility] in [place] Address [address] [place] [address] Care Team Providers Care Tenant Selector Name Role Phone Gamal Cartwright Primary Care Provider REASON FOR VISIT pen needle refills Medications Medication SIG (Take, Route, Frequency, Duration) Notes Start Date End Date Status Easy Comfort Pen [place] 31G X 8 MM as directed for 30 days Acti ve Encounters Encounter Location Date Provider Diagnosis [facility] [address] [place] [address] 09/11/2024 Gamal Cartwright Plan Of Treatment Medication Medication Name Sig Start Date Stop Date Notes Easy Comfort Pen [place] 31G X 8 MM as directed for 30 days Progress Notes * Franklin YATES JrDOB: [birth year] (59 yo M)Acc No.[id number]:09/11/2024 Patient: Yojana LIRIANOFranklin Jr :1965 A ge:59 Y S ex:Male Address:[address] [place], [address] * Refills Refill Easy Comfort Pen [place]rell Miscellaneous, 31G X 8 MM, 100, as directed, 30 days, Refills=11 * true * Date: Generated for Printi ng/Faxing/eTransmitting on: 0 11/17/2024 12:48 PM EDT
--- OUTSIDE RECORDS SUMMARY | 2024-11-14 | XMS_ITS | Encounter Summary ---
Author Organization [facility] Address [address] [place] [address] Care Team Providers Care Forms Builder Name Role Phone Pierce Cartwright MD Primary Care Provider [phone] Franklin Stevens MD Unavailable Encounter Details Date Type Department Care Team (Latest Contact Info) Description 11/14/2024 - 11/14/2024 12:04 AM EDT Hospital Encounter [facility] Radiology External Films [address] [place] [address] Arrived Discharge Disposition: Home or Self Care () Social History Tobacco Use Types Packs/Day Years Used Date Smoking Tobacco: Former Cigarettes 1 - 1994 Smokeless Tobacco: Never Alcohol Use Standard Drinks/Week Comments Not Currently 0 (1 standard drink = 0.6 oz pur e alcohol) PHQ-2 Answer Date Recorded Patient Health Questionnaire-2 Score 0 10/31/2024 [place] Safety & Environment Answer Date Rec orded [...] type, unspecified whether angina present, unspecified whether [place] or transplanted heart TAKE 1 TABLET (50 [...] 20 mg tabletIndications: Coronary artery disease involving [place] coronary artery of [place] heart without angina pectoris Take 1 tablet (20 mg) by mouth in the morning. 90 tablet 3 12/22/2023 sevelamer carbonate (Renvela) 800 mg tablet TAKE ONE TABLET BY MOUTH THREE TIMES A DAY WITH MEALS 07/16/2022 documented as of this encounter Plan of Treatment Upcoming Encounters Date Type Department Care Team (Late st Contact Info) Description 11/30/2024 1:30 PM EDT Appointment [facility] Vascular Ultrasound Imaging [address] [place] [phone] 11/30/2024 3:00 PM EDT Follow-Up [facility] [address] [place] [phone] Jerome Pena, BUSINESS CONSULT [address] [place] [address] 12/25/2024 9:45 AM EDT Office Visit [facility] [address] [place] [address] Jeffery Sosa MD [address] [facility] [address] [facility] [place] [phone] documented as of this encounter Procedures Procedure Name Priority Date/Time Associated Diagnosis Comments US TRANSFER OF OUTSIDE FILMS Routine 11/14/2024 12:00 AM EDT documented in this encounter Results * US transfer of outside films (11/14/2024 12:00 AM EDT) Narrative IMAGING - 11/14/2024 11:17 AM EDT This order has been auto-finalized and does not contain a result. us Otis Colunga MD IMG US PROCEDURES Final Result IMAGING documented in this encounter Visit Diagnoses Not on filedocumented in this encounter Care Teams Forms Builder Relationship Specialty Start Date End Date Pierce Cartwright MD [address] [facility] [place] [address] PCP - General 12/11/21 Franklin Stevens MD [address] [place] [phone] Consulting Physician Urology 08/30/24 Nephrology Consulting Physician Nephrology 01/12/22 documented as of this encounter
--- OUTSIDE RECORDS SUMMARY | 2024-11-14 00:05 | XMS_ITS | Encounter Summary ---
Author Organization [facility] Address [address] [place] [address] Care Team Providers Care Log Cut Off Sawyer Name Role Phone Pierce Cartwright MD Primary Care Provider [phone] Franklin Stevens MD Unavailable Encounter Details Date Type Department Care Team (Latest Contact Info) Description 11/14/2024 12:05 AM EDT - 11/14/2024 11:59 PM EDT Hospital Encounter [facility] Radiology External Films [address] [place] [address] Arrived Discharge Disposition: Home or Self Care () Social History Tobacco Use Types Packs/Day Years Used Date Smoking Tobacco: Former Cigarettes 1 02 19 983 - 1994 Smokeless Tobacco: Never Alcohol Use Standard Drinks/Week Comments Not Currently 0 (1 standard drink = 0.6 oz pur e alcohol) PHQ-2 Answer Date Recorded Patient Health Questionnaire-2 Score 0 10/31/2024 [place] Safety & Environment Answer Date Rec orded [...] type, unspecified whether angina present, unspecified whether [place] or transplanted heart TAKE 1 TABLET (50 [...] 20 mg tabletIndications: Coronary artery disease involving [place] coronary artery of [place] heart without angina pectoris Take 1 tablet (20 mg) by mouth in the morning. 90 tablet 3 12/22/2023 sevelamer carbonate (Renvela) 800 mg tablet TAKE ONE TABLET BY MOUTH THREE TIMES A DAY WITH MEALS 07/16/2022 documented as of this encounter Plan of Treatment Upcoming Encounters Date Type Department Care Team (Late st Contact Info) Description 11/30/2024 1:30 PM EDT Appointment [facility] Vascular Ultrasound Imaging [address] [place] [phone] 11/30/2024 3:00 PM EDT Follow-Up [facility] [address] [place] [address] Jerome Pena, RESTAURANT HOURLY MANAGER [address] [place] [address] 12/25/2024 9:45 AM EDT Office Visit [facility] Heart [facility] [address] [place] [address] Jeffery Sosa MD [address] [facility] [address] [place] [address] documented as of this encounter Procedures Procedure Name Priority Date/Time Associated Diagnosis Comments XR TRANSFER OF OUTSIDE FILMS Routine 11/14/2024 12:05 AM EDT documented in this encounter Results * XR transfer of outside films (11/14/2024 12:05 AM EDT) Narrative IMAGING - 11/14/2024 11:17 AM EDT This order has been auto-finalized and does not contain a result. Otis Colunga MD IMG XR PROCEDURES Final Result IMAGING documented in this encounter Visit Diagnoses Not on filedocumented in this encounter Care Teams Log Cut Off Sawyer Relationship Specialty Start Date End Date Pierce Cartwright MD [address] [facility] [address] PCP - General 12/11/21 Franklin Stevens MD [address] [place] [phone] Consulting Physician Urology 08/30/24 Nephrology Consulting Physician Nephrology 01/12/22 documented as of this encounter
--- OUTSIDE RECORDS SUMMARY | 2024-11-17 12:48 | XMS_ITS | Clinical Summary ---
Author Organization [facility] Address [address] [place] [address] Care Team Providers Care [employer] Metals[employer] Name Role Phone Pierce Cartwright MD Primary Care Provider [phone] Gopal Stevens MD Unavailable Allergies Active Allergy [...] MOUTH THREE TIMES A DAY WITH MEALS 3 Active Nephro-Jose 0.8 mg tablet Take 1 tablet by mouth in the morning. 3 Active hydrALAZINE (Apresoline) 50 mg tabletIndication s:Coronary artery disease, unspecified vessel or lesion type, unspecified whether angina present, unspecified whether ione or transplanted heart TAKE 1 TABLET (50 MG) BY MOUTH IN THE MORNING, AFTERNOON, AND AT BEDTIME. 270 tablet 3 3 Active Additional Information Patient taking differently:50 mg oral2 times daily, Reported on 10/31/2024 potassium chloride CR (Klor-Con M20) 20 mEq ER tablet Take 20 mEq by mouth in the morning. 4 Active pravastatin (Pravachol) 20 mg tabletIndication s:Coronary artery disease involving ione coronary artery of ione heart without angina pectoris Take 1 tablet (20 mg) by mouth in the morning. 90 tablet 3 4 12/22/19 25 Active carvedilol (Coreg) 25 mg tabletIndication s:Essential hypertension TAKE 1 AND 1/2 TABLETS BY MOUTH TWICE A DAY 270 tablet 3 4 Active isosorbide dinitrate (Isordil) 10 mg tabletIndication s:Chest pain, unspecified type TAKE 1 TABLET (10 MG) BY MOUTH IN THE MORNING, AT NOON, AND AT BEDTIME. 270 tablet 3 4 01/06/20 25 Active hydrOXYzine HCL (Atarax) 25 mg tablet Take 25 mg by mouth 1 (one) time. 4 Active magnesium oxide (Mag-Ox) 400 mg (241.3 mg magnesium) tablet Take 1 tablet by mouth in the morning. 5 Active montelukast (Singulair) 10 mg tablet Take 1 tablet by mouth in the morning. 5 Active calcium carbonate (Tums) 200 mg calcium (500 mg) chewable tablet Chew 1 tablet three times daily. Active Active Problems Problem Noted Date Diagnosed Date Abnormal cardiovascular stress test 10/05/2024 Chronic foot ulcer 06/19/2024 Type 2 diabetes mellitus 12/22/2023 Anxiety 11/24/2023 Chronic fatigue syndrome 11/24/2023 Diabetic neuropathy 11/24/2023 Diastolic dysfunction 11/24/2023 End-stage renal disease 11/24/2023 Erectile dysfunction 11/24/2023 Chronic GERD 11/24/2023 History of ID (myocardial infarction) 11/24/2023 History of osteomyelitis 11/24/2023 [...] deficiency 05/01/2022 Coronary artery disease invo lving ione coronary artery of ione heart without angina pectoris 01/12/2022 Overview (01/12/2022): [...] Assessment & Plan (09/09/2023 3:59 PM EDT): [facility] II Continue GDMT- ASA, coreg, hydralazine, isordil, [...] Encounters Date Type Department Care Team Description 11/14/2024 12:05 AM EDT - 11/14/2024 11:59 PM EDT Hospital Encounter [facility] Radiology External Films [address] [place] [address] Arrived Discharge Disposition: Home or Self Care () 11/14/2024 - 11/14/2024 12:04 AM EDT Hospital Encounter [facility] Radiology External Films [address] [place] [address] Arrived Discharge Disposition: Home or Self Care () 11/08/2024 Abstract [facility] Heart and Vascular Cardiothoracic Surgery [address] [place] [address] Sarita Diaz RN 11/06/2024 Telephone [facility] Heart [place] [address] [place] [address] Saida Briggs MA 11/03/2024 Telephone [facility] Vascular Cardiothoracic Surgery [place] [address] [place] [address] Dakota Tanner MA Other 11/01/2024 Orders Only [facility] Vascular Cardiothoracic Surgery [address] [address] Dakota Tanner MA 11/01/2024 Orders Only Cardiothoracic Surgery [address] [place] [address] Jerome Pena CNP Coronary artery disease involving ione coronary artery of ione heart without angina pectoris (Primary Dx); PVD (peripheral vascular disease); Shortness of breath; Other specified symptoms and signs involving the circulatory and respiratory systems 10/31/2024 3:30 PM EDT Consult [facility] Vascular Cardiothoracic Surgery [place] [address] [place] [address] Becky, , [employer]INNER [employer]AYER Pre-op testing (Primary Dx); Coronary artery disease involving ione coronary artery of ione heart without angina pectoris; Type 2 diabetes mellitus with diabetic neuropathy, without long-term current use of insulin (CMS/HCC); End-stage renal disease (CMS/HCC); Multiple nodules of lung; PVD (peripheral vascular disease); Shortness of breath 10/20/2024 Episode Changes [facility] Transplant [address] [place] [address] Pierce Ventura RN 10/19/2024 12:30 PM EDT - 10/19/2024 1:30 PM EDT Surgery [facility] Vascular [place] [facility] [address] [place] [address] Jeffery Sosa MD Coronary angiography 10/19/2024 10:53 AM EDT - 10/19/2024 6:06 PM EDT Hospital Encounter [facility] Vascular Lab [address] [place] [address] Jeffery Sosa MD Abnormal cardiovascular stress test Discharge Disposition: Home or Self Care () 10/19/2024 Travel 10/17/2024 Telephone [facility] Heart [place] [address] [place] [address] Susan Arroyo MA 10/12/2024 Travel 10/05/[address] [facility] Cardiology Clinic [address] [place] [address] Tanvi Hathaway MA 10/05/2024 Results Follow-Up [facility] Transplant [address] [place] [address] Tanvi Hathaway MA Lexiscan Stress Myocardial Perfusion Imaging 10/04/2024 10:31 AM EDT - 10/04/2024 11:59 PM EDT Hospital Encounter [facility] Vascular [place] [facility] [address] [place] [address] Pre-transplant evaluation for kidney transplant; Coronary artery disease involving left main coronary artery Discharge Disposition: Home or Self Care () 09/06/2024 Telephone [facility] Infectious Disease [address] [place] [address] Aleida Abraham MA 08/30/2024 1:00 PM EDT Lab [facility] Outpatient Draw Station [address] [place] [address] End stage renal disease ([facility]) 08/30/2024 12:58 PM EDT - 08/30/2024 11:59 PM EDT Hospital Encounter [facility] Heart and Vascular Center Heart Station [address] [place] [address] Discharge Disposition: Home or Self Care () 08/30/2024 12:28 PM EDT - 08/30/2024 12:57 PM EDT Hospital Encounter [facility] [place] [place] [address] Discharge Disposition: Home or Self Care () 08/30/2024 12:27 PM EDT Hospital Encounter [facility] [place] [address] Discharge Disposition: Home or Self Care () 08/30/2024 12:27 PM EDT Hospital Encounter [facility] X[place] [address] Discharge Disposition: Home or Self Care () 08/30/2024 8:00 AM EDT Clinical Support [facility] Transplant [address] [place] [address] Gopal Stevens MD Akrawi, Samer, MD Type 2 diabetes mellitus with ESRD (end-stage renal disease) ([facility]) (Primary Dx); Encounter for other preprocedural examination; End stage renal disease ([facility]); 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 not on chronic dialysis, with long-term current use of insulin ([facility]); Pre-transplant evaluation for kidney transplant [Z01.818] from [...] Recorded Patient Health Questionnaire-2 Score 0 10/31/2024 [place] Safety & Environment Answer Date Rec orded [...] Info) Description 11/30/2024 1:30 PM EDT Appointment [facility] Vascular Ultrasound Imaging [address] [place] [address] 11/30/2024 3:00 PM EDT Follow-Up [facility] Heart and Vascular Cardiothoracic Surgery Center [address] [place] [address] Jerome Pena, AILYN [address] [facility] [place] [address] 12/25/2024 9:45 AM EDT Office Visit [facility] Heart at [place] [address] [place] [address] Jeffery Sosa MD [address] [place] [address] [facility] [place] [address] Health Maintenance Due Date Last Done Comments [...] OUTSIDE FILMS Routine 11/14/2024 12:05 AM EDT US TRANSFER OF OUTSIDE FILMS Routine 11/14/2024 12:00 AM EDT INSTANT WAVE FREE RATIO (IFR) Routine 10/19/2024 [...] 1:29 PM EDT End stage renal disease (CMS/HCC) CT ABDOMEN PELVIS WO RENAL RECIPIENT Routine 08/30/2024 12:56 PM EDT End stage renal disease (CMS/HCC) CT CHEST WO IV CONTRAST Routine 08/30/2024 12:55 PM EDT End stage renal disease (CMS/HCC) XR CHEST 2 VIEWS Routine 08/30/2024 12:5 2 PM EDT End stage renal disease ([facility]) SINGLE ANTIGEN CLASS II Routine 08/30/2024 12:31 PM EDT Type 2 diabetes mellitus with ESRD (end-stage renal disease) ([facility]) Encounter for other preprocedural examination End stage renal disease ([facility]) 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 not on chronic dialysis, with long-term current use of insulin ([facility]) SINGLE ANTIGEN CLASS I Routine 12:31 PM EDT Type 2 diabetes mellitus with ESRD (end-stage renal disease) ([facility]) Encounter for other preprocedural examination End stage renal disease ([facility]) 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 not on chronic dialysis, with long-term current use of insulin ([facility]) C-PEPTIDE Routine 08/30/2024 12:31 PM EDT End stage renal disease ([facility]) CBC WITH AUTO DIFFERENTIAL Routine 08/30/2024 12:31 PM EDT End stage renal disease ([facility]) PANEL REACTIVE ANTIBODY Routine 08/30/2024 12:31 PM EDT End stage renal disease ([facility]) HLA DR CLASS II TYPING Routine 5 12:31 PM EDT End stage renal disease ([facility]) HLA ABC CLASS I TYPING Routine 5 12:31 PM EDT End stage renal disease ([facility]) VARICELLA ZOSTER ANTIBODY, IGG Routine 08/30/2024 12:31 PM EDT End stage renal disease ([facility]) QUANTIFERON TB GOLD Routine 08/30/2024 1 2:31 PM EDT End stage renal disease ([facility]) RUBEOLA ANTIBODY IGG Routine 08/30/2024 12:31 PM [...] other preprocedural examination End stage renal disease ([facility]) TESTOSTERONE, FREE AND TOTAL, AND SHBG Routine 08/30/2024 12:31 PM EDT End stage renal disease ([facility]) PROTIME-INR Routine 08/30/2024 12:31 PM EDT End stage renal disease ([facility]) LIPID PANEL Routine 08/30/2024 12:31 PM EDT End stage renal disease ([facility]) HEMOGLOBIN A1C Routine 08/30/2024 12:31 PM EDT Type 2 diabetes mellitus with ESRD (end-stage renal disease) ([facility]) COMPREHENSIVE METABOLIC PANEL Routine 08/30/2024 12:31 PM EDT End stage renal disease ([facility]) CBC AND DIFFERENTIAL Routine 08/30/2024 12:31 PM EDT End stage renal disease ([facility]) BILIRUBIN, DIRECT Routine 08/30/2024 12: 31 PM EDT End stage renal disease ([facility]) B-TYPE NATRIURETIC PEPTIDE Routine 08/30/2024 12:31 PM EDT Encounter for other preprocedural examination End stage renal disease ([facility]) TYPE AND SCREEN Routine 08/30/2024 12:31 PM EDT End stage renal disease ([facility]) from Last 3 Months Results * XR transfer of outside films (11/14/2024 12:05 AM EDT) Narrative IMAGING - 11/14/2024 11:17 AM EDT This order has been auto-finalized and does not contain a result. Otis Colunga MD IMG XR PROCEDURES Final Result IMAGING * US transfer of outside films (11/14/2024 12:00 AM EDT) Narrative IMAGING - 11/14/2024 11:17 AM EDT This order has been auto-finalized and does not contain a result. Otis Colunga MD [facility] US PROCEDURES Final Result Performing Organization Address City/[facility] Co de Phone Number IMAGING * CORONARY ANGIOGRAPHY, RIGHT HEART CATH, INSTANT [...] informed consent. he was brought to the medical laboratory technical officer in a fasting state. The groin area was prepped and draped in usual fashion. Micropuncture technique was used under ultrasound guidance for access in the right common femoral artery. Inner cannular angiography was performed followed by upsizing to a 6-Iranian x 11 cm sheath. Micropuncture technique was used under ultrasound guidance for access in the right common femoral vein and a 6-Iranian x 11 cm sheath was placed. A 6-Iranian Silvestre catheter was used for right heart catheterization and measurement of pressures and calculation of cardiac output using the estimated Marysol method. Silvestre catheter was removed. Bilateral selective coronary angiography was then performed using 6-Iranian JL4 diagnostic catheter for engagement of the left coronary artery and 6-Iranian JR4 diagnostic catheter for engagement of the right coronary artery. Catheters were removed. Heparin was administered intravenously and therapeutic ACT was confirmed during the rest of the procedure. A 6-Iranian XB 3.5 guiding catheter was advanced and used to engage the left coronary ostium. A POLYBONAi pressure wire was advanced and equalization of [...] Activated clotting time (10/19/2024 1:59 PM EDT) [facility] Activated Clotting Time 258(H) 82 - 152 s 10/19/2024 1:59 PM EDT [facility] ([facility]) Blood Venous blood specimen / Unknown 10/19/2024 1:59 PM EDT 10/19/2024 1:59 PM EDT Jeffery Sosa MD LAB POINT OF CARE TE ST DOCKED DEVICE UNSOLICITED RESULTS Final Result [facility] ([facility]) [address] [place] [address] * (ABNORMAL) POC Hb02% (10/19/2024 1:36 PM EDT) Pathologist [facility] UVRLAD50% 62.5(A) 90 - 95 % QC Pass/Fail Passed QC LOT # [id number] QC Expiration Date 73,126 SAMPLESITE nl Blood Venous blood specimen / Unknown 10/19/2024 1:36 PM EDT Narrative Ez Sam MT - 10/20/2024 6:46 AM EDT Oper [id number] Jeffery Sosa MD POINT OF CARE TEST ENTER/RAN T ORDERABLES Final Result * Electrocardiogram, 12-lead (10/19/2024 11:38 AM EDT) Only the most recent of2 resultswithin the time period is included. Ventricular Rate 58 BPM GE MUSE Atrial Rate 58 BPM GE MUSE IA Interval 236 ms GE MUSE QRS DURATION 88 ms GE MUSE QT Interval 470 ms GE MUSE QTC CALCULATION(BAZE TT) 461 ms GE MUSE P Henderson 37 degrees GE MUSE R-Henderson -22 degrees GE MUSE T Wave Henderson 91 degrees GE MUSE 10/19/2024 11:3 4 AM EDT 10/19/2024 12:33 PM EDT Impressions GE MUSE - 10/19/2024 12:33 PM EDT Sinus bradycardia with 1st degree A-V block Abnormal QRS-T angle, consider primary T wave abnormality Abnormal ECG When compared with ECG of 30-AUG-2024 13:07, No significant change was found Confirmed by Angelique DURAN., L.S. (2) on 10/19/2024 12:33:28 PM Narrative Procedure Note Isabelle Duran MD - 10/19/2024 IMPRESSION: Sinus bradycardia with 1st degree A-V block Abnormal QRS-T angle, consider primary T wave abnormality Abnormal ECG When compared with ECG of 30-AUG-2024 13:07, No significant change was found Confirmed by Florencio DURAN, L.S. (2) on 10/19/2024 12:33:28 PM us Jeffery Sosa MD ECG ORDERABLES Final Result GE MUSE * Lexiscan Stress Myocardial Perfusion Imaging (10/04/2024 1:27 PM EDT) Anatomical Region Laterality Modality Other 10/04/2024 12:1 9 PM EDT Narrative 10/04/2024 2:36 PM EDT 1 1 [facility] Heart Station [address] [place] [address] [phone] (fax) Lexiscan Stress Myocardial Perfusion Imaging- [facility] Name: GOPAL YATES Study Date: 10/04/2024 12:19 PM B/P: / HR: Date of : 1965 Location: [facility] Height: 76 in. Age: 59 year(s) Patient [...] Lexiscan Exercise Time: 03:03 Device: Treadmill HR [place] Used: 6.00 % HR Recovery: 1 bpm Frequent VE: 0 VE/min Resolution: Spontaneous Max HR: 71 bpm Target HR: 136 bpm Achieved: No Resting HR: 61 bpm Max Predicted HR: 160 bpm Achv. of Max Predicted: 44 % BP Max: 176/70 BP at Rest: 176/70 Max RPP: 05451 mmHg*bpm Max ST Lead: I Max ST Phase: Postinfsn Stage No. in Phase: [address] Stage: 4-[address] Amplitude: -0.[address] [place]: -0.140 mV/s Max ST Time in Phase: [...] 1.00 mets 63 bpm 176/70 -0.200 mm [id number] 00:30 1.00 mets 61 bpm 176/70 -0.150 [...] 4 - Aneurysmal Procedure Staff Reading Group: [facility] Referring Physician: Pierce Cartwright MD Stress Network Support Technician: Natalie Chapa Grants Officer: Yanet Alvarado Ordering Physician: Jeffery Sosa MD Advanced Practitioner: DIMITRY Michael Resting Perfusion Procedure Note Stephanie Dash MD - 10/04/2024 1 1 [facility] Heart Station [address] [place] [address] [phone] (fax) Lexiscan Stress Myocardial Perfusion Imaging- [facility] Name: GOPAL YATES Study Date: 10/04/2024 12:19 PM B/P: / HR: Date of : 1965 Location: [facility] Height: 76 in. Age: 59 year(s) Patient [...] Lexiscan Exercise Time: 03:03 Device: Treadmill HR [place] Used: 6.00 % HR Recovery: 1 bpm Frequent VE: 0 VE/min Resolution: Spontaneous Max HR: 71 bpm Target HR: 136 bpm Achieved: No Resting HR: 61 bpm Max Predicted HR: 160 bpm Achv. of Max Predicted: 44 % BP Max: 176/70 BP at Rest: 176/70 Max RPP: 62860 mmHg*bpm Max ST Lead: I Max ST Phase: Postinfsn Stage No. in Phase: [address] Stage: 4-[address] Amplitude: -0.[address] [place]: -0.140 mV/s Max ST Time in Phase: [...] 1.00 mets 63 bpm 176/70 -0.200 mm [id number] 00:30 1.00 mets 61 bpm 176/70 -0.150 [...] 4 - Aneurysmal Procedure Staff Reading Group: [facility] Referring Physician: Pierce Cartwright MD Stress Network Support Technician: Natalie Chapa Grants Officer: Yanet Alvarado Ordering Physician: Jeffery Sosa MD [...] contrast. No acute osseous abnormality. Procedure Note Jereym Marshall MD - 09/01/2024 CT ABDOMEN AND [...] reasonably achievable. Electronically signed: Jeremy Marshall. us Samemarisol Rodrigues MD [facility] CT PROCEDURES Final Result * CT chest [...] Esteban Orozco MD. us Samer Lilia BATISTA IM CT PROCEDURES Final Result * XR chest [...] findings inthis report. Electronically signed: Dangelo Al. us Samer Lilia BATISTA IMG XR PROCEDURES Final Result * QUANTIFERON TB GOLD (08/30/2024 12:31 PM EDT) QUANTIFERON TB GOLD PLUS Negative Negative 08/31/2024 10:56 AM EDT [facility] ([facility]) Comment: Liaison Quantiferon TB Gold Plus Interpretation (IU/mL): NEGATIVE: M. tuberculosis infection not likely. Nil: <=8.0 TB1 Antigen minus Nil (UR1OB-XTQ): <0.35; OR >=0.35 and <25% of Nil value. TB2 Antigen minus Nil (ZB4GL-XNX): <0.35; OR >=0.35 and <25% of Nil value. Mitogen minus Nil: >=0.5 MITOGEN MINUS NIL 6.91 IU/mL 025 10:56 AM EDT [facility] ([facility]) TB1 MINUS NIL -0.01 IU/mL 08/31/2024 10:56 AM EDT [facility] ([facility]) TB2 MINUS NIL -0.01 IU/mL 08/31/2024 10:56 AM EDT [facility] ([facility]) NIL DIASORIN 0.05 IU/mL 08/31/2024 10:56 AM EDT [facility] ([facility]) Blood Venous blood specimen / Unknown Venipuncture / Unknown 08/30/2024 12:31 PM EDT 08/30/2024 12:43 PM EDT us [place] Rodrigues MD LAB BLOOD ORDERABLES Final Resul t [facility] ([facility]) [address] [place] [address] * HLA ABC class I typing (08/30/2024 12:31 PM EDT) Tested Date [id number] 1:58 PM EDT [facility] TISSUE TYPING (HISTOTRAC) A-1 2 09/01/2024 1:58 PM EDT [facility] TISSUE TYPING (HISTOTRAC) A-2 3 09/01/2024 1:58 PM EDT [facility] TISSUE TYPING (HISTOTRAC) B-1 8 09/01/2024 1:58 PM EDT [facility] TISSUE TYPING (HISTOTRAC) B-2 44 09/01/2024 1:58 PM EDT [facility] TISSUE TYPING (HISTOTRAC) Bw-1 4 09/01/2024 1:58 PM EDT [facility] TISSUE TYPING (HISTOTRAC) Bw-2 6 09/01/2024 1:58 PM EDT [facility] TISSUE TYPING (HISTOTRAC) C-1 5 09/01/2024 1:58 PM EDT [facility] TISSUE TYPING (HISTOTRAC) C-2 7 09/01/2024 1:58 PM EDT [facility] TISSUE TYPING (HISTOTRAC) Test Method Class I typing by PCR-SSOP Luminex 09/01/2024 1:58 PM EDT [facility] TISSUE TYPING (HISTOTRAC) Signed By Signed by Gopal Ortiz CHT([facility]) SAMEER(ASCP), Rn Circulating Transplant Immunology 09/01/2024 1:58 PM EDT [facility] TISSUE TYPING (HISTOTRAC) Blood Venous blood specimen / Unknown Venipuncture / Unknown 08/30/2024 12:31 PM EDT 08/30/2024 12:48 PM EDT [place] Rodrigues MD LAB BLOOD ORDERABLES Final Resul t Performing Organization Address City/[facility]/ZIP Co de Phone Number [facility] TISSUE TYPING (HISTOTRAC) [address] [place] [address], [place] [phone] * Panel reactive antibody (08/30/2024 12:31 PM EDT) Extra Tube Hold for add-ons. 08/30/2024 2:38 PM EDT [facility] TISSUE TYPING (HISTOTRAC) Comment:Auto resulted. Blood Venous blood specimen / Unknown Venipuncture / Unknown 08/30/2024 12:31 PM EDT 08/30/2024 12:42 PM EDT us [place] Rodrigues MD LAB BLOOD ORDERABLES Final Resul t Performing Organization Address City/[facility]/ZIP Co de Phone Number [facility] TISSUE TYPING (HISTOTRAC) [address] [place] [address], [place] [phone] * HLA DR class II typing (08/30/2024 12:31 PM EDT) Tested Date [id number] 2:13 PM EDT [facility] TISSUE TYPING (HISTOTRAC) DRB1-1 17 09/01/2024 2:13 PM EDT [facility] TISSUE TYPING (HISTOTRAC) DRB1-2 12 09/01/2024 2:13 PM EDT [facility] TISSUE TYPING (HISTOTRAC) DRB3-1 52 09/01/2024 2:13 PM EDT [facility] TISSUE TYPING (HISTOTRAC) DRB3-2 52 09/01/2024 2:13 PM EDT [facility] TISSUE TYPING (HISTOTRAC) DQA1-1 05 09/01/2024 2:13 PM EDT [facility] TISSUE TYPING (HISTOTRAC) DQB1-1 2 09/01/2024 2:13 PM EDT [facility] TISSUE TYPING (HISTOTRAC) DQB1-2 7 09/01/2024 2:13 PM EDT [facility] TISSUE TYPING (HISTOTRAC) DPB1-1 04:01 09/01/2024 2:13 PM EDT [facility] TISSUE TYPING (HISTOTRAC) Test Method Class II typing by PCR-SSOP Luminex 09/01/2024 2:13 PM EDT [facility] TISSUE TYPING (HISTOTRAC) Signed By Signed by Gopal Ortiz CHT([facility]) SAMEER([facility]), Rn Circulating Transplant Immunology 09/01/2024 2:13 PM EDT [facility] TISSUE TYPING (HISTOTRAC) Blood Venous blood specimen / Unknown Venipuncture / Unknown 08/30/2024 12:31 PM EDT 08/30/2024 12:48 PM EDT us [place] Rodrigues MD LAB BLOOD ORDERABLES Final Resul t [facility] TISSUE TYPING (HISTOTRAC) [address] [place] [address], * Single antigen class II (08/30/2024 12:31 PM EDT) Tested Date [id number] 5:40 PM EDT [facility] T[facility]UE [facility]YP[facility] ([facility]) cPRA 0 09/05/2024 5:40 PM EDT [facility] ([facility]) Comments No Specificites Found 09/05/2024 5:40 PM EDT [facility] ([facility]) Test Method Class II Single Antigen 09/05/2024 5:40 PM EDT [facility] ([facility]) Comment:Class II Antigen Spencer shalaeads Signed By Signed by Gopal Ortiz CHT([facility]) SAMEER([facility]), Rn Circulating Transplant Immunology 09/05/2024 5:40 PM EDT [facility] ([facility]) Blood Venous blood specimen / Unknown Venipuncture / Unknown 08/30/2024 12:31 PM EDT 08/30/2024 12:42 PM EDT us Gopal Stevens MD LAB BLOOD ORDERABLES Final Resul t Performing Organization Address City/[facility]/ZIP Co de Phone Number [facility]YP[facility] ([facility]) [address] [place] [address], [place] [phone] * Single antigen class I (08/30/2024 12:31 PM EDT) Tested Date [id number] 5:40 PM EDT [facility] T[facility]YP[facility] ([facility]) cPRA 0 09/05/2024 5:40 PM EDT [facility] ([facility]) Test Method Class I Single Antigen 09/05/2024 5:40 PM EDT [facility] T[facility]YP[facility] ([facility]) Signed By Signed by Gopal Ortiz CHT([facility]) SAMEER([facility]), Rn Circulating Transplant Immunology 09/05/2024 5:40 PM EDT [facility] T[facility]YP[facility] ([facility]) Comment:Class I Antigen Micr obeads Class I Low Risk Ab A:23 09/05/2024 5:40 PM EDT [facility] T[facility]YP[facility] ([facility]) Comments Potential specificites added to the watch list. 09/05/2024 5:40 PM EDT [facility]YP[facility] ([facility]) Blood Venous blood specimen / Unknown Venipuncture / Unknown 08/30/2024 12:31 PM EDT 08/30/2024 12:42 PM EDT us Gopal Stevens MD LAB BLOOD ORDERABLES Final Resul t Performing Organization Address City/[facility]/ZIP Co de Phone Number [facility] TISSUE [facility]YP[facility] ([facility]) [address] [place] [address], [place] [phone] * HIV COMBO 4G (08/30/2024 12:31 PM EDT) Pathologist [facility] HIV Combo 4G Negative Negative 08/30/2024 2:09 PM EDT [facility] ([facility]) Blood Venous blood specimen / Unknown Venipuncture / Unknown 08/30/2024 12:31 PM EDT 08/30/2024 12:48 PM EDT West Rodrigues MD LAB BLOOD ORDERABLES Final Resul t Performing Organization Address [facility]/ZIP Co de Phone Number [facility]) [address] [place] [address] [phone] * Hepatitis B surface antibody quant (08/30/2024 12:31 PM EDT) Pathologist [facility] Hepatitis B Surface Ab 0.36 mIU/mL 08/30/2024 3:50 PM EDT [facility] ([facility]) Comment: INTERPRETATION: NONREACTIVE <8.00 mIU/mL INDETERMINATE 8.00 - 12.00 mIU/mL REACTIVE >12 mIU/mL Blood Venous blood specimen / Unknown Venipuncture / Unknown 08/30/2024 12:31 PM EDT 08/30/2024 12:47 PM EDT West Rodrigues MD LAB BLOOD ORDERABLES Final Resul t Performing Organization Address [facility] de Phone Number [facility]) [address] [place] [phone] * Mumps antibody IgG (08/30/2024 12:31 PM EDT) Pathologist [facility] MUMPS IGG ANTIBODY 132.0 AU/mL 2024 6:19 PM EDT [facility] ([facility]) Comment: NORMAL RANGES: < 9.0 NEGATIVE; NO DETECTABLE IgG ANTIBODY TO MUMPS. >= 9.0 AND < 11.0 EQUIVOCAL; REPEAT TESTING SUGGESTED. >= 11.0 POSITIVE; INDICATES PRESENCE OF DETECTABLE IgG ANTIBODY TO MUMPS. Mumps IgG Ab Interpretation Positive 08/30/2024 6:19 PM EDT [facility] ([facility]) Blood Venous blood specimen / Unknown Venipuncture / Unknown 08/30/2024 12:31 PM EDT 08/30/2024 12:47 PM EDT West Rodrigues MD LAB BLOOD ORDERABLES Final Resul t Performing Organization Address [facility] Co de Phone Number [facility] ([facility]) [address] [place] [phone] * Varicella zoster antibody, IgG (08/30/2024 12:31 PM EDT) VZV IgG Ab 2,833.0 Index 08/30/2024 6:19 PM EDT [facility] ([facility]) Comment: NORMAL RANGES: < 135 NEGATIVE; NO DETECTABLE IgG ANTIBODY TO VARICELLA-ZOSTER VIRUS. >= 135.0 AND < 165.0 EQUIVOCAL; REPEAT TESTING SUGGESTED. >= 165.0 POSITIVE; INDICATES PRESENCE OF DETECTABLE IgG ANTIBODY TO VARICELLA-ZOSTER VIRUS. VZV IgG Ab Interpretation Positive 08/30/2024 6:19 PM EDT [facility] ([facility]) Blood Venous blood specimen / Unknown Venipuncture / Unknown 08/30/2024 12:31 PM EDT 08/30/2024 12:47 PM EDT West Rodrigues MD LAB BLOOD ORDERABLES Final Resul t Performing Organization Address [facility] de Phone Number [facility] ([facility]) [address] [place] [phone] * Testosterone, free and total, and SHBG (08/30/2024 12:31 PM EDT) Testosterone 353 193 - 740 ng/dL 08/30/2024 6:39 PM EDT [facility] Sex Hormone Binding 54 19 - 76 nmol/L 08/30/2024 6:39 PM EDT [facility] Testosterone, Free 50.9 47.0 - 244.0 pg/mL 08/30/2024 6:39 PM EDT [facility] Comment: The concentration of free testosterone is derived from a mathematical expression based on the constant for the binding of testosterone to albumin and/or sex hormone binding globulin. Test Performed by [employer] [address] [place] [address] - [email or web address] 08/30/2024 18:39 Blood Venous blood specimen / Unknown Venipuncture / Unknown 08/30/2024 12:31 PM EDT 08/30/2024 12:47 PM EDT West Rodrigues MD LAB BLOOD ORDERABLES Final Resul t [facility] [address] [place] [address] * (ABNORMAL) CBC auto differential (08/30/2024 12:31 PM EDT) Auto WBC 9.95 4.00 - 10.60 10*3/uL 08/30/2024 12:58 PM EDT [facility] ([facility]) RBC 3.03(L) 4.20 - 5.70 10*6/uL 08/30/2024 12:58 PM EDT [facility] ([facility]) Hemoglobin 9.3(L) 13.0 - 17.0 g/dL 08/30/2024 12:58 PM EDT [facility] ([facility]) Hematocrit 27.5(L) 39.0 - 50.0 % 08/30/2024 12:58 PM EDT [facility] ([facility]) MCV 90.8 82.0 - 98.0 fL 08/30/2024 12:58 PM EDT [facility] ([facility]) MCH 30.7 27.0 - 33.0 pg 08/30/2024 12:58 PM EDT [facility] ([facility]) MCHC 33.8 32.0 - 35.0 g/dL 08/30/2024 12:58 PM EDT [facility] ([facility]) RDW 13.9 11.5 - 15.0 % 08/30/2024 12:58 PM EDT [facility] ([facility]) Neutrophils % 78.9(H) 40.0 - 72.0 % 08/30/2024 12:58 PM EDT [facility] ([facility]) Lymphocytes % 11.9(L) 20.0 - 45.0 % 08/30/2024 12:58 PM T [facility] ([facility]) Monocytes % 6.9 5.0 - 12.0 % 08/30/2024 12:58 PM EDT [facility] ([facility]) Eosinophils % 1.6 0.0 - 6.0 % 08/30/2024 12:58 PM EDT [facility] ([facility]) Basophils % 0.3 0.0 - 1.0 % 08/30/2024 12:58 PM T [facility] ([facility]) Neutrophils Absolute 7.85(H) 1.60 - 7.60 10*3/uL 08/30/2024 12:58 PM T [facility] ([facility]) Lymphocytes Absolute 1.18(L) 1.20 - 4.00 10*3/uL 08/30/2024 12:58 PM T [facility] ([facility]) Monocytes Absolute 0.69 0.10 - 1.00 10*3/uL 08/30/2024 12:58 PM T [facility] ([facility]) Eosinophils Absolute 0.16 0.00 - 0.50 10*3/uL 08/30/2024 12:58 PM T [facility] ([facility]) Basophils Absolute 0.03 0.00 - 0.20 10*3/uL 08/30/2024 12:58 PM EDT [facility] ([facility]) Platelets 167 150 - 400 10*3/uL 08/30/2024 12:58 PM T [facility] ([facility]) nRBC % 0.0 0 % 08/30/2024 12:58 PM [facility] ([facility]) Immature Granulocytes % 0.4 0.0 - 1.0 % 08/30/2024 12:58 PM T [facility]) Immature Granulocytes Absolute 0.04 0.00 - 0.20 10*3/uL 08/30/2024 12:58 PM [facility]) Blood Venous blood specimen / Unknown Venipuncture / Unknown 08/30/2024 12:31 PM EDT 08/30/2024 12:48 PM EDT West Rodrigues MD LAB BLOOD ORDERABLES Final Resul t [facility]) [address] [place] [address] * Hepatitis C antibody (08/30/2024 12:31 PM EDT) Hepatitis C Ab Nonreactive Nonreactive 08/30/2024 3:51 PM EDT [facility] ([facility]) Blood Venous blood specimen / Unknown Venipuncture / Unknown 08/30/2024 12:31 PM EDT 08/30/2024 12:47 PM EDT West Rodrigues MD LAB BLOOD ORDERABLES Final Resul t Performing Organization Address City/[facility] Co de Phone Number [facility] ([facility]) [address] [place] [address] * (ABNORMAL) Neelam-Magana virus VCA antibody panel (08/30/2024 12:31 PM EDT) EBV VCA IgG Interpretation Positive 09/01/2024 11:06 AM EDT [facility] ([facility]) NEELAM-MAGAAN VIRUS VCA IGG 635.0 U/mL 09/01/2024 11:06 AM EDT [facility] ([facility]) EBV VCA IGM INTERPRETATION Positive(A) Negative 09/01/2024 11:06 AM EDT [facility] ([facility]) NEELAM-MAGANA VIRUS VCA IGM 60.2(H) < 36.0 U/mL U/mL 09/01/2024 11:06 AM EDT [facility] ([facility]) Comment: NORMAL RANGE < 36.0 NEGATIVE ; NO SIGNIFICANT LEVEL OF DETECTABLE EBV-VCA IgM AB >= 36.0 AND < 44.0 EQUIVOCAL; REPEAT TESTING SUGGESTED >= 44.0 POSITIVE ; SIGNIFICANT LEVEL OF DETECTABLE EBV-VCA IgM AB Blood Venous blood specimen / Unknown Venipuncture / Unknown 08/30/2024 12:31 PM EDT 08/30/2024 12:47 PM EDT Narrative [facility] ([facility]) - 09/01/2024 11:06 AM EDT Consistent with current or recent EBV infection. us West Rodrigues MD LAB BLOOD ORDERABLES Final Resul t [facility] ([facility]) [address] [place] [address] * Hepatitis A antibody, IgM (08/30/2024 12:31 PM EDT) Hep A IgM Nonreactive Nonreactive 08/30/2024 3:51 PM EDT [facility] ([facility]) Blood Venous blood specimen / Unknown Venipuncture / Unknown 08/30/2024 12:31 PM EDT 08/30/2024 12:47 PM EDT West Rodrigues MD LAB BLOOD ORDERABLES Final Resul t Performing Organization Address City/[facility] Co de Phone Number [facility] ([facility]) [address] [place] [address] * Rubeola antibody IgG (08/30/2024 12:31 PM EDT) Measles IgG Antibody Interpretation Positive 08/30/2024 6:19 PM EDT [facility] ([facility]) MEASLES IGG ANTIBODY >300.0 AU/mL 08/30/2024 6:19 PM EDT [facility] ([facility]) Comment: NORMAL RANGES: < 13.5 NEGATIVE; NO DETECTABLE IgG ANTIBODY TO RUBEOLA (MEASLES). >= 13.5 AND < 16.5 EQUIVOCAL; REPEAT TESTING SUGGESTED. >= 16.5 POSITIVE; INDICATES PRESENCE OF DETECTABLE IgG ANTIBODY TO RUBEOLA (MEASLES). Blood Venous blood specimen / Unknown Venipuncture / Unknown 08/30/2024 12:31 PM EDT 08/30/2024 12:47 PM EDT West Rodrigues MD LAB BLOOD ORDERABLES Final Resul t [facility] ([facility]) [address] [place] [address] * Hepatitis B core antibody, IgM (08/30/2024 12:31 PM EDT) [facility] Hep B Core Ab IgM Negative Negative 09/04/2024 11:41 AM EDT [facility] ([facility]) Comment: INTERPRETIVE INFORMATION: Hepatitis B Core Ab, IgM This assay should not be used for blood donor screening, associated re-entry protocols, or for screening Human Cells, Tissues and Cellular and Tissue-Based Products (HCT/P). Performed By: [employer] [address] [place] [address] Lens Maker: Cody Gurrola MD, PhD CLIA Number: [id number] Blood Venous blood specimen / Unknown Venipuncture / Unknown 08/30/2024 12:31 PM EDT 08/30/2024 12:47 PM EDT West Rodrigues MD LAB BLOOD ORDERABLES Final Resul t Performing Organization Address City/[facility]/ZIP Co de Phone Number [facility] ([facility]) [address] [place] [address] * Hepatitis B core antibody, total (08/30/2024 12:31 PM EDT) [facility] Hep B Core Total Ab Nonreactive Nonreactive 08/30/2024 3:51 PM EDT [facility] ([facility]) Blood Venous blood specimen / Unknown Venipuncture / Unknown 08/30/2024 12:31 PM EDT 08/30/2024 12:47 PM EDT West Rodrigues MD LAB BLOOD ORDERABLES Final Resul t [facility] ([facility]) [address] [place] [address] * CMV IgM (08/30/2024 12:31 PM EDT) [facility] Cytomegalovirus IgM Ab Interpretation Negative Negative 09/06/2024 2:08 PM EDT [facility] ([facility]) CYTOMEGALOVIRUS IGM ANTIBODY <8.0 < 30.0 AU/mL AU/mL 09/06/2024 2:08 PM EDT [facility] ([facility]) Blood Venous blood specimen / Unknown Venipuncture / Unknown 08/30/2024 12:31 PM EDT 08/30/2024 12:47 PM EDT West Rodrigues MD LAB BLOOD ORDERABLES Final Resul t [facility] ([facility]) [address] [place] [address] * (ABNORMAL) C-peptide (08/30/2024 12:31 PM EDT) C-Peptide 14.5(H) 0.5 - 3.3 ng/mL 09/01/2024 12:14 AM EDT [facility] ([facility]) Comment: INTERPRETIVE INFORMATION: Serum, C-Peptide Reference Interval applies to fasting specimens. To convert to nmol/L, multiply by 0.33 Performed By: [employer] [address] [place] [address] Lens Maker: Cody Gurrola MD, PhD CLIA Number: [id number] Blood Venous blood specimen / Unknown Venipuncture / Unknown 08/30/2024 12:31 PM EDT 08/30/2024 12:47 PM EDT West Rodrigues MD LAB BLOOD ORDERABLES Final Resul t Performing Organization Address City/[facility] Co de Phone Number [facility]) [address] [place] [address] * Rubella antibody, IgG (08/30/2024 12:31 PM EDT) RUBELLA IGG ANTIBODY 0.81 Index 08/30/2024 6:19 PM EDT [facility] ([facility]) Comment: NORMAL RANGES: < 0.90 NEGATIVE; NO DETECTABLE IgG ANTIBODY TO RUBELLA. >= 0.90 AND < 1.00 EQUIVOCAL; REPEAT TESTING SUGGESTED. >= 1.00 POSITIVE; INDICATES PRESENCE OF DETECTABLE IgG ANTIBODY TO RUBELLA VIRUS. Rubella IgG Antibody Interpretation Negative 08/30/2024 6:19 PM EDT [facility] ([facility]) Blood Venous blood specimen / Unknown Venipuncture / Unknown 08/30/2024 12:31 PM EDT 08/30/2024 12:47 PM EDT West Rodrigues MD LAB BLOOD ORDERABLES Final Resul t Performing Organization Address City/[facility] Co de Phone Number [facility]) [address] [place], [place] [id number] * Hepatitis B surface antigen (08/30/2024 12:31 PM EDT) Hepatitis B Surface Ag Nonreactive Nonreactive 08/30/2024 3:50 PM EDT [facility] ([facility]) Blood Venous blood specimen / Unknown Venipuncture / Unknown 08/30/2024 12:31 PM EDT 08/30/2024 12:47 PM EDT West Rodrigues MD LAB BLOOD ORDERABLES Final Resul t Performing Organization Address [facility] de Phone Number [facility]) [address] [place] [phone] * Cytomegalovirus antibody, IgG (08/30/2024 12:31 PM EDT) Cytomegalovirus IgG Ab Interpretation Negative 09/01/2024 10:58 AM EDT [facility] ([facility]) CYTOMEGALOVIRUS IGG ANTIBODY <0.20 U/mL 09/01/2024 10:58 AM EDT [facility] ([facility]) Comment: NORMAL RANGES: < 0.60 NEGATIVE [...] ORDERABLES Final Resul t Performing Organization Address City/[facility]/ZIP Co de Phone Number [facility]) [address] [place], [place] [phone] * Protime-INR (08/30/2024 12:31 PM EDT) Protime 12.7 12.3 - 14.8 Seconds 08/30/2024 1:08 PM EDT [facility] ([facility]) INR 0.95 0.90 - 1.10 08/30/2024 1:08 PM EDT [facility] ([facility]) Comment: ACC RECOMMENDED INR FOR WARFARIN THERAPY CONDITION INR [...] LAB BLOOD ORDERABLES Final Resul t [facility]) [address] [place], [place] [id number] * Type and screen (08/30/2024 12:31 PM EDT) ABO Grouping A 08/30/2024 2:11 PM EDT [facility] Rh Type POS 08/30/2024 2:11 PM EDT [facility] Ab Scrn NEG 08/30/2024 2:11 PM EDT [facility] Blood Venous blood specimen / Unknown Venipuncture / Unknown 08/30/2024 12:31 PM EDT 08/30/2024 12:42 PM EDT us West Rodrigues MD LAB BLOOD BANK TEST ORDERABLES F inal Result [facility] * PSA, Screening (08/30/2024 12:31 PM EDT) PSA 0.6 0.4 - 4 ng/mL 08/30/2024 1:19 PM EDT [facility] ([facility]) Blood Venous blood specimen / Unknown Venipuncture / Unknown 08/30/2024 12:31 PM EDT 08/30/2024 12:47 PM EDT us West Rodrigues MD LAB BLOOD ORDERABLES Final Resul t [facility] ([facility]) [address] [place] [address] * (ABNORMAL) B-type natriuretic peptide (08/30/2024 12:31 PM EDT) BNP 549(H) 0 - 100 pg/mL 08/30/2024 1:16 PM EDT [facility] ([facility]) Blood Venous blood specimen / Unknown Venipuncture / Unknown 08/30/2024 12:31 PM EDT 08/30/2024 12:48 PM EDT us West Rodrigues MD LAB BLOOD ORDERABLES Final Resul t [facility] ([facility]) [address] [place] [address] * (ABNORMAL) Hemoglobin A1c (08/30/2024 12:31 PM EDT) Hemoglobin A1C 7.0(H) 4.0 - 6.0 % 08/31/2024 8:15 AM EDT [facility] ([facility]) Estimated Average Glucose 154 mg/dL 08/31/2024 8:15 AM EDT [facility] ([facility]) Blood Venous blood specimen / Unknown Venipuncture / Unknown 08/30/2024 12:31 PM EDT 08/30/2024 12:48 PM EDT West Rodrigues MD LAB BLOOD ORDERABLES Final Resul t Performing Organization Address [facility] Co de Phone Number [facility]) [address] [place] [address] * Bilirubin, direct (08/30/2024 12:31 PM EDT) Bilirubin, Direct 0.1 0 - 0.2 mg/dL 08/30/2024 1:11 PM EDT [facility] ([facility]) Blood Venous blood specimen / Unknown Venipuncture / Unknown 08/30/2024 12:31 PM EDT 08/30/2024 12:47 PM EDT West Rodrigues MD LAB BLOOD ORDERABLES Final Resul t Performing Organization Address [facility]/ZIP Co de Phone Number [facility] ([facility]) [address] [place] [address] * (ABNORMAL) Lipid panel (08/30/2024 12:31 PM EDT) Triglycerides 198(H) <150 mg/dL 08/30/2024 1:11 PM EDT [facility]) Comment: TRIGLYCERIDE REFERENCE RANGE: 20 YEARS AND OLDER CARDIOVASCULAR RISK LESS THAN 150 mg/dL LOW RISK 150 TO 199 mg/dL BORDERLINE RISK 200 mg/dL AND GREATER HIGH RISK Cholesterol 124 120 - 200 mg/dL 08/30/2024 1:11 PM EDT [facility] ([facility]) LDL Calculated 57 0 - 160 mg/dL 08/30/2024 1:11 PM EDT [facility] ([facility]) HDL 27 23 - 92 mg/dL 08/30/2024 1:11 PM EDT [facility] ([facility]) Non HDL Cholesterol 97 08/30/2024 1:11 PM EDT [facility] ([facility]) Total VLDL-C 40 0 - 40 mg/dL 08/30/2024 1:11 PM EDT [facility] ([facility]) Cholesterol/HDL Ratio 4.6 mg/dL 08/30/2024 1:11 PM EDT [facility] ([facility]) Blood Venous blood specimen / Unknown Venipuncture / Unknown 08/30/2024 12:31 PM EDT 08/30/2024 12:47 PM EDT us West Rodrigues MD LAB BLOOD ORDERABLES Final Resul t [facility] ([facility]) [address] [place] [address] * (ABNORMAL) Comprehensive metabolic panel (08/30/2024 12:31 PM EDT) Sodium 140 136 - 145 mmol/L 08/30/2024 1:11 PM EDT [facility] ([facility]) Potassium 3.8 3.5 - 5.1 mmol/L 08/30/2024 1:11 PM EDT [facility] ([facility]) Chloride 99 98 - 107 mmol/L 08/30/2024 1:11 PM EDT [facility] ([facility]) CO2 30 21 - 31 mmol/L 08/30/2024 1:11 PM EDT [facility] ([facility]) Anion Gap 15 7 - 20 mmol/L 08/30/2024 1:11 PM EDT [facility] ([facility]) BUN 40(H) 7 - 25 mg/dL 08/30/2024 1:11 PM [facility] ([facility]) Creatinine 10.34(H) 0.70 - 1.30 mg/dL 08/30/2024 1:11 PM [facility] ([facility]) BUN/Creatinine Ratio 3.9 08/20 1:11 PM [facility] ([facility]) Glucose 148(H) 70 - 100 mg/dL 08/30/2024 1:11 PM [facility] ([facility]) Calcium 8.6 8.6 - 10.3 mg/dL 08/30/2024 1:11 PM [facility] ([facility]) AST 13 13 - 39 U/L 08/30/2024 1:11 PM [facility] ([facility]) ALT (SGPT) 17 7 - 52 U/L 08/30/2024 1:11 PM [facility] ([facility]) Alkaline Phosphatase 115(H) 34 - 104 U/L 08/30/2024 1:11 [facility] ([facility]) Total Protein 6.6 6.0 - 8.3 g/dL 08/30/2024 1:11 [facility] ([facility]) Albumin 3.3(L) 3.5 - 5.7 g/dL 08/30/2024 1:11 [facility] ([facility]) Total Bilirubin 0.4 0.3 - 1.0 mg/dL 08/30/2024 1:11 [facility] ([facility]) eGFR 5.2(L) >60.0 mL/min/1 .73m*2 08/30/2024 1:11 [facility] ([facility]) Comment:[facility] s estimated glomerular filtration rate (eGFR) [...] LAB BLOOD ORDERABLES Final Resul t [facility] ([facility]) [address] [place] [address] from Last 3 Months Insurance MEDICAID [place] [employer] Member Subscriber Plan / Payer (Ef fective 2022-Present) Name:Gopal Yates Member ID:[id number] Relation to Subscriber:Self Name:Gopal Yates Subscriber ID:[id number] Payer ID:[id number] Group ID:Not on file Type:Medicare Address: [facility] [place] [id number] MEDICARE Member Subscriber Plan / Payer (Ef fective 2022-Present) Name:Gopal Yates Member ID:[id number] Relation to Subscriber:Self Name:Gopal Yates Subscriber ID:[id number] Payer ID:[id number] Group ID:Not on file Type:Medicare Address: [facility] [place] [id number] [place] Care Teams [employer] Relationship Specialty Start Date End Date Pierce Cartwright MD [address] [place] [address] PCP - General 12/11/21 Gopal Stevens MD [address] [place] [id number] Consulting Physician Urology 08/30/24 Nephrology Consulting Physician Nephrology 01/12/22
--- OUTSIDE RECORDS SUMMARY | 2024-11-17 12:49 | XMS_ITS | Encounter Summary ---
Author Organization [facility] Address [address] [place] [address] Care Team Providers Care Intake Clerk Name Role Phone Pierce Cartwright MD Primary Care Provider [phone] Franklin Stevens MD Unavailable Encounter Details Date Type Department Care Team (Late st Contact Info) Description 11/08/2024 Abstract [facility] [address] [place] [phone] Sarita Diaz, RN Social History Tobacco Use Types Packs/Day Years Used Date Smoking Tobacco: Former Cigarettes 1 02 19 983 - 1994 Smokeless Tobacco: Never Alcohol Use Standard Drinks/Week Comments Not Currently 0 (1 standard drink = 0.6 oz pur e alcohol) PHQ-2 Answer Date Recorded Patient Health Questionnaire-2 Score 0 10/31/2024 MD Safety & Environment Answer Date Rec [...] Info) Description 11/30/2024 1:30 PM EDT Appointment [facility] Vascular Ultrasound Imaging [address] [place] [address] 11/30/2024 3:00 PM EDT Follow-Up [facility] [address] [place] [address] Jerome Pena, PAPERBOARD BOX MAKER [address] [place] [address] 12/25/2024 9:45 AM EDT Office Visit [facility] [address] [place] [address] Jeffery Sosa MD [address] [facility] [address] [facility] [place] [address] documented as of this encounter Visit Diagnoses Not on filedocumented in this encounter Care Teams Intake Clerk Relationship Specialty Start Date End Date Pierce Cartwright MD [address] [facility] [address] [address] PCP - General 12/11/21 Franklin Stevens MD [facility] [place] [address] Consulting Physician Urology 08/30/24 Nephrology Consulting Physician Nephrology 01/12/22 documented as of this encounter
--- OUTSIDE RECORDS SUMMARY | 2024-11-17 12:49 | XMS_ITS | Encounter Summary ---
Author Organization [facility] Address [address] [place] [address] Care Team Providers Care Retail Support Specialist Name Role Phone Pierce Cartwright MD Primary Care Provider [phone] Franklin Stevens MD Unavailable Reason for Visit * Reason Comments Med Refill Encounter Details Date Type Department Care Team (Late st Contact Info) Description 02/08/2023 Refill [facility] [address] [place] [address] Jeffery Sosa MD [address] [facility] [address] [place] [address] Chest pain, unspecified type Social History Tobacco [...] Info) Description 11/30/2024 1:30 PM EDT Appointment [facility] Vascular Ultrasound Imaging [address] [place] [address] 11/30/2024 3:00 PM EDT Follow-Up [facility] [address] [facility] [place] [address] Jerome Pena, INVESTIGATION LIEUTENANT [address] [place] [address] 12/25/2024 9:45 AM EDT Office Visit [facility] [address] [place] [address] Jeffery Sosa MD [address] [facility] [address] [place] [place] [address] documented as of this encounter Visit Diagnoses Diagnosis Chest pain, unspecified type documented in this encounter Care Teams Retail Support Specialist Relationship Specialty Start Date End Date Pierce Cartwright MD [address] [facility] [place] [address] [address] PCP - General 12/11/21 Franklin Stevens MD [address] [place] [address] Consulting Physician Urology 08/30/24 Nephrology Consulting Physician Nephrology 01/12/22 documented as of this encounter
--- OUTSIDE RECORDS SUMMARY | 2024-11-17 12:49 | XMS_ITS | Clinical Summary ---
Author Organization [facility] Address [address] [place] [address] Care Team Providers Care Photovoltaic Testing Technician Name Role Phone Pierce Cartwright MD Primary Care Provider [phone] Allergies Active Allergy Reactions Criticality Noted Date [...] Type Department Care Team Description 10/09/2024 Abstract [facility] [address] [place] [address] Galo Corado DPM 10/09/2024 Telephone [facility] [address] [place] [phone] Galo Corado DPM Advice Only (Keeping DM Shoes ) 09/25/2024 1:15 PM EDT Office Visit [facility] [address] [place] [address] Galo Corado DPM 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); Peripheral vascular disease, unspecified; Status post amputation of foot, right (HCC) 09/25/2024 Bamboo flowsheet [facility] [address] [place] [address] Galo Corado DPM 09/25/2024 Travel 09/21/2024 Travel 09/20/2024 Travel 09/15/2024 Travel 09/06/2024 2:30 PM EDT Procedure Visit [facility] [address] [place] [address] Selam Larsen DPM Status post amputation of foot, right (HCC) (Primary Dx); Type II diabetes mellitus with neurological manifestations (HCC); Onychomycosis; Corns and callosities 09/06/2024 Bamboo flowsheet [facility] [address] [place] [address] Selam Larsen DPM 09/06/2024 Travel from Last [...] Podiatry [address] [place] [address] Selam Larsen DPM [address] [place] [address] Health Maintenance Due Date Last Done Comments CT Colonography 1965 Colonoscopy 1965 Colorectal Cancer Screening 1965 FIT-DNA 1965 FIT 1965 FOBT 1965 Sigmoidoscopy 1965 Influenza Vaccine (#1) 2024 Insurance MEDICARE MEDICAID [place] Care Teams Photovoltaic Testing Technician Relationship Specialty Start Date End Date Pierce Cartwright MD [address] [place] [address] PCP - General Family Medicine 08/12/22
--- OUTSIDE RECORDS SUMMARY | 2024-11-17 12:49 | XMS_ITS | Patient Health Record ---
Author Organization [facility] Address [address] [facility] [place] [address] Care Team Providers Care Computer Systems Engineer Name Role Phone Gamal Cartwright Primary Care Provider Allergies Allergen (clinical drug ingredient) Drug/Non Drug Allergy documented on EMR Reaction Allergy Type Onset Date Status Substance with sulfonamide structure and antibacterial mechanism of action (substance) Sulfa Antibiotics Unknown Drug Allergy Active Results Component Value Reference Range Notes CA echo doppler complete Reviewed date:05/16/2024 04:09:16 PM Interpretation: Performing Lab: Notes/Report: Source Facility: [place] [address] Cardiology Report Signed Patient: GOPAL YATES MR#: [id number] : 1965 Acct:[id number] Age/Sex: 58 / M ADM Date: 05/16/24 Loc: CARD Attending Dr: CASIMIRO SOSA Ordering Physician: CASIMIRO SOSA Date of Service: 05/16/24 Procedure(s): CA echo doppler complete Accession Number(s): [id number] cc: Pierce Cartwright M.D.; CASIMIRO SOSA Patient Name: GOPAL YATES MR#: [id number] : 1965 Exam Date: 05/16/2024 Ordering Doctor: [...] Signed By: 05/16/24 1600 DD/ 1559 TD/TT: Washing Tub Operator: [place] [address] Cardiology Report Signed Patient: GOPAL YATES MR#: [id number] : 1965 Acct:[id number] Age/Sex: 58 / M ADM Date: 05/16/24 Loc: CARD Attending Dr: CASIMIRO SOSA Ordering Physician: CASIMIRO SOSA Date of Service: 05/16/24 Procedure(s): CA ech o doppler complete Accession Number(s): [id number] cc: Pierce Cartwright M.D. ; CASIMIRO SOSA Patient Name: GOPAL YATES MR#: [id number] : 1965 Exam Date: 05/16/2024 Ordering Doctor: [...] 84.77 ml, 84.77 ml Dictated by: Casimiro oSsa M.D. on 05/16/2024 at 15:55 Approved by: Casimiro Sosa M.D. on 05/16/2024 at 15:58 Dictated By: CASIMIRO SOSA Signed By: 05/16/241599 DD/ 1559 TD/TT: Washing Tub Operator: LIPID PROFILE Reviewed date:06/20/2024 04:26:01 PM Interpretation: Performing Lab: Notes/Report: [facility] , Triglycerides 170 <=150 mg/dL Cholesterol 117 <=200 mg/dL HDL Cholesterol 36 40-60 mg/dL > or =60 mg/dl - LOW CARDIOVASCULAR RISK <40 mg/dl - HIGH CARDIOVASCULAR RISK LDL Cholesterol Calculated 47.0 160-189 mg/dl HIGH 100-129 mg/dl NEAR OR ABOVE OPTIMAL >190 mg/dl VERY HIGH 130-159 mg/dl BORDERLINE HIGH <100 mg/dl OPTIMAL VLDL CHOLESTEROL 34.0 Chol HDL Ratio 3.2 >11.0 HIGH RISK 3.3 - 4.4 LOW RISK 4.4 - 7.1 AVERAGE RISK 7.1 - 11.0 MODERATE RISK Performing Lab: see note ML - [facility] LB CBC AUTO DIFF Reviewed date:10/17/2024 02:31:36 PM Interpretation: Performing Lab: Notes/Report: [facility] , White Blood Count 8.4 4.0-11.0 10 [...] 3/uL Performing Lab: see note ML - [facility] PROF CHEM 8 (ALEXANDRA WILLARD) Reviewed date:10/17/2024 02:31:36 PM Interpretation: Performing Lab: Notes/Report: [facility] , Sodium 139 136-145 mmol/L Potassium 3.8 [...] mg/dL Performing Lab: see note ML - [facility] LB LIPID PROFILE Reviewed date:12/21/2023 04:00:03 PM Interpretation: Performing Lab: Notes/Report: [facility] , Triglycerides 187 <=150 mg/dL Cholesterol 93 <=200 mg/dL HDL Cholesterol 33 40-60 mg/dL > or =60 mg/dl - LOW CARDIOVASCULAR RISK <40 mg/dl - HIGH CARDIOVASCULAR RISK LDL Cholesterol Calculated 23.0 100-129 mg/dl NEAR OR ABOVE OPTIMAL >190 mg/dl VERY HIGH <100 mg/dl OPTIMAL 160-189 mg/dl HIGH 130-159 mg/dl BORDERLINE HIGH VLDL CHOLESTEROL 37.4 Chol HDL Ratio 2.8 4.4 - 7.1 AVERAGE RISK 7.1 - 11.0 MODERATE RISK 3.3 - 4.4 LOW RISK >11.0 HIGH RISK Performing Lab: see note ML - [facility] Reason For Referral No Information Medications Medication [...] day for 30 days Active Dexcom G6 Registered Radiation Therapist - as directed Active Liothyronine Sodium 5 MCG TAKE TWO TABLE TS BY MOUTH ONCE DAILY ON AN EMPTY STOMACH for 30 Active Carvedilol 25 MG 1 tablet with food O rally Twice a day for 30 days Active Lancets - as directed Active Omeprazole 40 mg TAKE 1 CAPSULE BY MO [facility] TWICE A DAY for 30 days Active Compression Stocking Below Knee 20-30mmHg - Active Easy Comfort Pen Morrill 31G X 8 MM as directed for [...] ulcer due to type 2 diabetes mellitus (3575084606655) Type 2 diabetes mellitus with foot ulcer (E11.621) Active confirmed Problem Acute combined systolic and diastolic heart failure (373807163986526) Acute combined systolic (congestive) and diastolic (congestive) heart failure (I50.41) Active confirmed Problem Influenza (1035140) Influenza due to unidentified influenza virus with other manifestations (J11.89) Active confirmed Problem 64949225 Pleural effusion , not elsewhere classified (J90) Active confirmed Problem 04190801 End stage renal disease (N18.6) Active confirmed Problem Palpitations (08223195) Palpitations (R00.2) Active confirmed Problem Cough (66518708) Cough (R05) Active confirmed Problem Nocturia (810920950) Nocturia (R35.1) Active confirmed Problem Anorexia (69105126) Anorexia (R63.0) Active confirmed Problem Exposure to communicable disease (964817708) Contact with and (suspected) exposure to other viral communicable diseases (Z20.828) Active confirmed Problem Fatigue (90890298) Fatigue (R53.83) Active conf irmed Problem Hyperlipidemia (81297867) Hyperlipidemia (E78.5) Active confirmed Problem Hypothyroidism (12727492) Hypothyroidism (E03.9) Active confirmed Problem Diastolic dysfunction (4034922) Diastolic dysfunction (I51.9) Active confirmed Problem Coronary artery disease (55906645) CAD (coronary artery disease) (I25.10) Active confirmed Problem Hypertension (60212562) HTN (hypertension) (I10) Active confirmed Problem Anxiety (73693972) Anxiety (F41.9) Active confi rmed Problem Edema (31492632) Edema (R60.9) Active confirmed Problem Dyspnea (632735990) Dyspnea (R06.00) Active confirmed Problem Diabetic nephropathy (674751431) Diabetic nephropathy (E11.21) Active confirmed Problem Chronic sinusitis (78765011) Chronic sinusitis (J32.9) Active confirmed Problem Well adult (142477984) Well adult (Z00.00) Active confirmed Problem Non-pressure chronic ulcer of other part of right foot limited to breakdown of skin (L97.511) Active confirmed Problem Psychosexual dysfunction associated with inhibited sexual excitement (759974276399120) ED (erectile dysfunction) of non-organic origin (F52.21) Active confirmed Problem Nausea and vomiting (98543971) Nausea & vomiting (R11.2) Active confirmed Problem Shoulder joint pain (026251004) Shoulder pain, left (M25.512) Active confirmed Problem Insulin dependent diabetes mellitus type IA (08630588) 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) Active confirmed Problem Osteomyelitis (67415795) Osteomyelitis (M86.9) Active confirmed Problem Multiple pulmonary nodules (742642276) Multiple pulmonary nodules (R91.8) Active confirmed Problem Ex-tobacco user (finding) (876324399) History of tobacco abuse (Z87.891) Active confirmed Problem Old myocardial infarction (6653371) History of DE (myocardial infarction) (I25.2) Active confirmed Problem Viral gastroenteritis (400910795) Viral gastroenteritis (A08.4) Active confirmed Problem Panic attack (851833833) Panic attack (F41.0) Active confirmed Problem Problem behavior (527408306) Behavior problem (F69) Active confirmed Problem Dependence on renal dialysis (028080538) Dialysis patient (Z99.2) Active confirmed Problem Gastro-esophageal reflux disease (680346260) Gastro-esophageal reflux disease (K21.9) Active confirmed Problem 03659607 Pure hypercholesterolem ia, unspecified (E78.00) Active confirmed Problem Chronic fatigue syndrome (24058104) CFS (chronic fatigue syndrome) (R53.82) Active confirmed Problem Type II diabetes mellitus without complication (972294546) Controlled type 2 diabetes mellitus (E11.9) Active confirmed Problem Diabetic renal disease (464198100) 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) Active confirmed Problem Metabolic acidosis (09951426) Metabolic acidosis (E87.20) Active confirmed Vital Signs Blood pressure diastolic 74 mm Hg 07/20/2024 Height 76 in 07/20/2024 Blood pressure systolic 124 mm Hg 07/20/2024 Weight 221.8 lbs 07/20/2024 BMI 27 kg/m2 07/20/2024 Encounters Encounter Location Date Provider Diagnosis [facility] [address] [place] [address] 07/14/2024 Gamal Cartwright [facility] [address] [place] [address] 09/11/2024 Gamal Cartwright [facility] [address] [place] [address] 07/20/2024 Gamal Cartwright Dyspnea R06.00 ; Metabolic [...] End Date [place]IC[place] [address] [place] [address] [id number] Gopal Yates Self - patient is the insured [address] [facility] [place] [id number] Gopal Yates Self - patient is the [...] Fatigue R53.83 Chronic sinusitis J32.9 History of DE (myocardial infarction) I2 5.2 CAD (coronary artery [...]
--- OUTSIDE RECORDS SUMMARY | 2024-11-17 12:49 | XMS_ITS ---
Author Organization [facility] Address [address] [place] [address] Care Team Providers Care Music Copyist Name Role Phone Pierce Cartwright MD Primary Care Provider Franklin Stevens MD Unavailable Transplant Episode Kidney Candidate [facility] ([place], [place]) - [facility] Evaluation began on 08/30/2024 Marked as Deferred on 10/20/2024 Reason: Temporarily too Sick Kidney CoordinatorPierce Ventura RN Phone: N/A Fax: N/A Email: N/A Scores Score Value Updated Exceptions/Reas ons CPRA Not available EPTS (Calc) 79 11/17/2024 [place] [facility] Diagnosis Organ Primary Contributory Kidney Diabetes Mellitus - Type II Care Team Name Role Phone Fax Email Pierce Ventura RN Kidney Coordinator N/A N/A N/A Cristobal Butts MD Referring Physician [phone] N/A Dana Sommers Txp Internet Sales Consultant N/A N/A N/A Franklin Stevens MD Transplant Physician [phone] N/A West Rodrigues MD School Transportation Supervisor [phone] N/A Events Pre-Transplant Referred: 03/28/2024 Evaluation began: 08/30/2024 Dialysis History Dialysis History Start End Type Comments Center 06/17/2022 Peritoneal everyday [facility] [employer] Dialysis Center Information Center Phone Fax Address [facility] [employer]. [phone] [address] [facility] [address] [facility] [address]
--- OUTSIDE RECORDS SUMMARY | 2024-11-17 12:49 | XMS_ITS | Encounter Summary ---
Author Organization [facility] Address [address] [place] [address] Care Team Providers Care Ceramic Products Sales Engineer Name Role Phone Pierce Cartwright MD Primary Care Provider [phone] Franklin Stevens MD Unavailable Reason for Visit * Reason Comments Med Refill Encounter Details Date Type Department Care Team (Late st Contact Info) Description 03/10/2023 Refill [facility] Heart at [facility] [address] [place] [address] Ruth Zhang, POT PULLER [address] [place] [address] Coronary artery disease, unspecified vessel or lesion type, unspecified whether angina present, unspecified whether salt river or transplanted heart Social History Tobacco Use [...] Department Care Team (Late Contact Info) Description 11/30/2024 1:30 PM EDT Appointment [facility] Vascular Ultrasound Imaging [address] [place] [address] 11/30/2024 3:00 PM EDT Follow-Up [facility] [address] [place] [address] Jerome Pena, AILYN [address] [place] [address] 12/25/2024 9:45 AM EDT Office Visit [facility] Heart at [facility] [address] [place] [address] Jeffery Sosa MD [address] [facility] [address] [place] [address] documented as of this encounter Visit Diagnoses Diagnosis Coronary artery disease, unspecified vessel or lesion type, unspecified whether angina present, unspecified whether salt river or transplanted heart documented in this encounter Care Teams Ceramic Products Sales Engineer Relationship Specialty Start Date End Date Pierce Cartwright MD [address] [facility] [facility] [address] [address] PCP - General 12/11/21 Franklin Stevens MD [address] [place] [address] Consulting Physician Urology 08/30/24 Nephrology Consulting Physician Nephrology 01/12/22 documented as of this encounter
--- OUTSIDE RECORDS SUMMARY | 2024-11-17 12:49 | XMS_ITS | Encounter Summary ---
Author Organization [facility] Address [address] [place] [address] Care Team Providers Care Strategy Execution Consultant Name Role Phone Pierce Cartwright MD Primary Care Provider [phone] Franklin Stevens MD Unavailable Reason for Referral * Imaging (Routine) - Pending Review Specialty Diagnoses / Procedures Referred By Aileen maldonado Referred To Contact Cardiology Diagnoses Coronary artery disease involving red lake coronary artery of red [place] heart without angina pectoris Procedures Vascular US lower extremity vein mapping bilateral Otis Colunga MD [address] [place] [address] Phone: tel: fax: Referral ID Status Reason Start Date Expiration Date Visits Requested Visits Authorized [id number] Pending Review Perform Procedure 11/14/2024 11/14/2025 1 1 Reason for Visit * Reason Onset Date Comments Other 11/03/2024 Encounter Details Date Type Department Care Team (Late st Contact Info) Description 11/03/2024 Telephone [facility] Heart and V[facility] [address] [place] [phone] Dakota Tanner MA Other Social History Tobacco Use Types Packs/Day Years Used Date Smoking Tobacco: Former Cigarettes 1 - 1994 Smokeless Tobacco: Never Alcohol Use Standard Drinks/Week Comments Not Currently 0 (1 standard drink = 0.6 oz pur e alcohol) PHQ-2 Answer Date Recorded Patient Health Questionnaire-2 Score 0 10/31/2024 MS Safety & Environment Answer Date Rec orded [...] Addendum Note - Dakota Tanner MA - 11/14/2024 3:40 PM EDTAddended by: DAKOTA TANNER on: 11/14/2024 03:40 PM Modules accepted: Orders * Telephone Encounter - Dakota Tanner MA - 11/14/2024 3:29 PM EDT Spoke with patient and his he is scheduled for his US 11/30 @1:30 pm. * Telephone Encounter - Dakota Tanner MA - 11/14/2024 8:52 AM EDT Call placed to [facility] to get reports and images for US Arterial duplex and Carotid. Patient needsvein mapping [facility] stated that they do not do those there. Patient is scheduled for PFT and ECHO11/17. Called to inform patient that he needs to get scheduled here for US vein mapping no answer lmom to cb. * Telephone Encounter - Dakota Tanner MA - 11/03/2024 10:13 AM EDT Patient wanted orders (labs,US,PFT) sent to [facility] these were faxed over to [phone]. documented in this encounter Plan of Treatment Upcoming Encounters Date Type Department Care Team (Late st Contact Info) Description 11/30/2024 1:30 PM EDT Appointment [facility] Vascular Ultrasound Imaging [address] [place] [address] 11/30/2024 3:00 PM EDT Follow-Up [facility] Heart [facility] [address] [place] [address] Becky, , TAX INVESTIGATOR [address] [place] [address] 12/25/2024 9:45 AM EDT Office Visit [facility] [address] [place] [address] Jeffery Sosa MD [address] [facility] [address] [facility] [place] [address] Scheduled Orders Name Type Priority Associated Diagnoses Orde r Schedule Vascular US lower extremity vein mapping bilateral Vascular Ultrasound Routine Coronary artery disease involving red lake coronary artery of [place] heart without angina pectoris Expected: 11/14/2024 (Approximate), Expires: 11/14/2026 documented as of this encounter Visit Diagnoses Diagnosis Coronary artery disease involving red [place] coronary artery of [place] heart without angina pectoris- Primary documented in this encounter Care Teams Strategy Execution Consultant Relationship Specialty Start Date End Date Pierce Cartwright MD [address] [facility] [address] [address] PCP - General 12/11/21 Franklin Stevens MD [facility] [place] [address] Consulting Physician Urology 08/30/24 Nephrology Consulting Physician Nephrology 01/12/22 documented as of this encounter
--- OUTSIDE RECORDS SUMMARY | 2024-11-17 12:49 | XMS_ITS | Encounter Summary ---
Author Organization [facility] Address [address] [place] [address] Care Team Providers Care Supervisor Mold Yard Name Role Phone Pierce Cartwright MD Primary Care Provider [phone] Source Comments In the event this information is protected by the Federal Confidentiality of Alcohol and Drug AbusePatient Records regulations: The Federal rules restrict any use of the information to criminally investigate or prosecute any alcohol or drug abuse patient.[facility] Encounter Details Date Type Department Care Team (Late st Contact Info) Description 05/12/2022 Lab Requisition [facility] [address] [place] [address] Selam Larsen, DPFrank [address] [place] [address] Social History Tobacco Use Types Packs/Day Years [...] ot on file 04/08/2022 Data from: https://www.neighborhoodatlas.[facility]/. Last address used for calculation [address] [...] INHIBITORY CONCENTRATION ([place]) 05/18/2022 8:02 AM EST [facility] Comment: Specifically Bacteroides fragilis,as identified by client. Bacteroides spp. are intrinsically resistant to ampicillin, penicillin, and aminoglycosides. Micro Specimen FOOT JOINT SYNOVIAL FLUID / Unknown 05/05/2022 1:41 PM EST 05/12/2022 4:45 AM EST Narrative [facility] - 05/18/2022 8:02 AM EST Organism Antibiotic Method Susceptibility Bacteroides fragilis group Ertapenem MINIMUM INHIBITORY CONCENTRATION(E-TEST) 0.25: Susceptible Bacteroides fragilis group Ampicillin/Sulbact MINIMUM INHIBITORY CONCENTRATION(E-TEST) 8: Susceptible Bacteroides fragilis group Metronidazole MINIMUM INHIBITORY CONCENTRATION(E-TEST) 0.125: Susceptible us Selam Larsen DPM LABORATORY Final Resu lt [facility] [address] documented in this encounter Visit Diagnoses Not on filedocumented in this encounter Care Teams Supervisor Mold Yard Relationship Specialty Start Date End Date Pierce Cartwright MD PCP - General Family Medicine 09/29/21 documented as of this encounter
--- OUTSIDE RECORDS SUMMARY | 2024-11-17 12:49 | XMS_ITS | Encounter Summary ---
Author Organization [facility] Address [address] [place] [address] Care Team Providers Care Dial Equipment Engineer Name Role Phone Pierce Cartwright MD Primary Care Provider [phone] Source Comments In the event this information is protected by the Federal Confidentiality of Alcohol and Drug AbusePatient Records regulations: The Federal rules restrict any use of the information to criminally investigate or prosecute any alcohol or drug abuse patient.[facility] Encounter Details Date Type Department Care Team (Late st Contact Info) Description 05/26/2022 Lab Requisition [facility] [address] [place] [address] Primo Luis MD [address] [place] [address] Social History Tobacco Use Types [...] N ot on file 04/08/2022 Data from: https://www.neighborhoodatlas.[facility]/. Last address used for calculation [address] [...] INHIBITORY CONCENTRATION ([place]) 06/01/2022 8:05 AM EDT [facility] Comment: Identification performed by client. Bacteroides [...] Primo Luis MD LABORATORY Final Resul t [facility] [address] documented in this encounter Visit Diagnoses Not on filedocumented in this encounter Care Teams Dial Equipment Engineer Relationship Specialty Start Date End Date Pierce Cartwright MD PCP - General Family Medicine 09/29/21 documented as of this encounter
--- OUTSIDE RECORDS SUMMARY | 2024-11-17 12:49 | XMS_ITS | Encounter Summary ---
Author Organization [facility] Address [address] [place] [address] Care Team Providers Care Automatic Head Sawyer Name Role Phone Pierce Cartwright MD Primary Care Provider [phone] Franklin Stevens MD Unavailable Encounter Details Date Type Department Care Team (Late Contact Info) Description 11/01/2024 Orders Only [facility] [address] [place] [phone] Dakota Tanner MA Social History Tobacco Use Types Packs/Day Years Used Date Smoking Tobacco: Former Cigarettes 1 02 19 983 - 1994 Smokeless Tobacco: Never Alcohol Use Standard Drinks/Week Comments Not Currently 0 (1 standard drink = 0.6 oz pur e alcohol) PHQ-2 Answer Date Recorded Patient Health Questionnaire-2 Score 0 10/31/2024 [place] Safety & Environment Answer Date Rec orded [...] Info) Description 11/30/2024 1:30 PM EDT Appointment [facility] Ul[facility]ound [facility] [address] [place] [address] 11/30/2024 3:00 PM EDT Follow-Up [facility] [address] [place] [address] Neel Penaa, SEISMIC PROSPECTING OBSERVER HELPER [address] [place] [address] 12/25/2024 9:45 AM EDT Office Visit [facility] [address] [place] [address] Jeffery Sosa MD [address] [facility] [address] [facility] [place] [address] documented as of this encounter Visit Diagnoses Not on filedocumented in this encounter Care Teams Automatic Head Sawyer Relationship Specialty Start Date End Date Pierce Cartwright MD [address] [facility] [address] [address] PCP - General 12/11/21 Franklin Stevens MD [facility] [place] [address] Consulting Physician Urology 08/30/24 Nephrology Consulting Physician Nephrology 01/12/22 documented as of this encounter
--- OUTSIDE RECORDS SUMMARY | 2024-11-17 12:49 | XMS_ITS | Clinical Summary ---
Author Organization [facility] Address [address] [place], [place] [id number] Care Team Providers Care Artist Model Name Role Phone Pierce Cartwright MD Primary Care Provider [phone] Allergies Active Allergy Reactions Criticality Noted Date [...] original vaccine, a ge 12+ yr, monovalent ([employer] [facility]) 06/11/2021 COVID-19 original vaccine, a ge 12+ [...] N ot on file 04/08/2022 Data from: https://www.neighborhoodatlas.medicine.[facility]/. Last address used for calculation [address] [...] - 8.0 g/dL 04/16/2022 3:14 PM EST [facility] Albumin 3.7(L) 3.9 - 4.9 g/dL 04/16/2022 3:14 PM EST [facility] Calcium, Total 8.1(L) 8.5 - 10.2 mg/dL 04/16/2022 3:14 PM EST [facility] Bilirubin, Total 0.5 0.2 - 1.3 mg/dL 04/16/2022 3:14 PM [facility] Alkaline Phosphatase 195(H) 38 - 113 U/L 04/16/2022 3:14 PM [facility] AST 16 14 - 40 U/L 04/16/2022 3:14 PM [facility] ALT 20 10 - 54 U/L 04/16/2022 3:14 PM [facility] Glucose 146(H) 74 - 99 mg/dL 04/16/2022 3:14 PM [facility] Comment: The [employer] Diabetes Association (ADA) provides guidance for cutoff [...] Standards of Medical Care in Diabetes 2016, British Diabetes Association. Diabetes Care. 2016.39(Suppl 1). BUN 81(H) 9 - 24 mg/dL 04/16/2022 3:14 PM [facility] Creatinine 4.53(H) 0.73 - 1.22 mg/dL 04/16/2022 3:14 PM [facility] Sodium 142 136 - 144 mmol/L 04/16/2022 3:14 PM [facility] Potassium 4.2 3.7 - 5.1 mmol/L 04/16/2022 3:14 PM [facility] Chloride 112(H) 97 - 105 mmol/L 04/16/2022 3:14 PM [facility] CO2 17(L) 22 - 30 mmol/L 04/16/2022 3:14 PM [facility] Anion Gap 13 9 - 18 mmol/L 04/16/2022 3:14 PM [facility] Estimated Glomerular Filtration Rate 14(L) >=60 mL/min/1. 73m 04/16/2022 3:14 PM EST [facility] Comment:Estimated Glomerular Filtration Rate (eGFR) [...] EST Conrad Rome MD LABORATORY Final Result [facility] [address] [place] [address] * (ABNORMAL) CBC + DIFF (04/16/2022 2:48 PM EST) WBC 5.82 3.70 - 11.00 k/uL 04/16/2022 2:52 PM EST [facility] RBC 3.62(L) 4.20 - 6.00 m/uL 04/16/2022 2:52 PM [facility] Hemoglobin 10.5(L) 13.0 - 17.0 g/dL 04/16/2022 2:52 PM EST [facility] Hematocrit 32.2(L) 39.0 - 51.0 % 04/16/2022 2:52 PM EST [facility] MCV 89.0 80.0 - 100.0 fL 04/16/2022 2:52 PM [facility] MCH 29.0 26.0 - 34.0 pg 04/16/2022 2:52 PM [facility] MCHC 32.6 30.5 - 36.0 g/dL 04/16/2022 2:52 PM EST [facility] RDW-CV 13.3 11.5 - 15.0 % 04/16/2022 2:52 PM [facility] Platelet Count 136(L) 150 - 400 k/uL 04/16/2022 2:52 PM [facility] MPV 11.5 9.0 - 12.7 fL 04/16/2022 2:52 PM [facility] Neutrophils % 76.2 % 04/16/2022 2:52 PM [facility] Abs Neut 4.44 1.45 - 7.50 k/uL 04/16/2022 2:52 PM [facility] Lymphocytes % 11.0 % 04/16/2022 2:52 PM [facility] Abs Lymph 0.64(L) 1.00 - 4.00 k/uL 04/16/2022 2:52 PM [facility] Monocytes % 10.7 % 04/16/2022 2:52 PM [facility] Abs [place] 0.62 <0.87 k/uL 04/16/2022 2:52 PM [facility] Eosinophils % 1.4 % 04/16/2022 2:52 PM [facility] Abs Eosin 0.08 <0.46 k/uL 04/16/2022 2:52 PM [facility] Basophils % 0.5 % 04/16/2022 2:52 PM [facility] Abs Baso 0.03 <0.11 k/uL 04/16/2022 2:52 PM [facility] Immature Granulocytes % 0.2 % 04/16/2022 2:52 PM [facility] Abs Immature Gran <0.03 <0.10 k/uL 04/16/2022 2:52 PM [facility] NRBC 0.0 /100 WBC 04/16/2022 2:52 PM [facility] Absolute nRBC <0.01 <0.01 k/uL 04/16/2022 2:52 PM EST [facility] Diff Type Auto 04/16/2022 2:52 PM EST [facility] Blood BLOOD SPECIMEN / Unknown Venipuncture / Unknown 04/16/2022 2:48 PM EST 04/16/2022 2:48 PM EST Narrative [facility] - 04/16/2022 2:52 PM EST This is an appended report. These results have been appended to a previously verified report. us Conrad Rome MD LABORATORY Final Result [facility] [address] [place] [address] from Last 3 Months or Most Recently Relevant to Health Maintenance Insurance [employer] [place] Care Teams Artist Model Relationship Specialty Start Date End Date Pierce Cartwright MD PCP - General Family Medicine 09/29/21
--- OUTSIDE RECORDS SUMMARY | 2024-11-17 12:49 | XMS_ITS | Encounter Summary ---
Author Organization [facility] Address [address] [place] [address] Care Team Providers Care Handyperson Name Role Phone Pierce Cartwright MD Primary Care Provider [phone] Franklin Stevens MD Unavailable Reason for Referral * Imaging (Routine) - Pending Review Specialty Diagnoses / Procedures Referred By Aileen maldonado Referred To Contact Cardiology Diagnoses Coronary artery disease involving flandreau coronary artery of flandreau heart without angina pectoris PVD (peripheral vascular disease) Procedures Vascular US lower extremity arterial duplex bilateral Jerome Pena CNP [address] [place] [address] Phone: tel: fax: Referral ID Status Reason Start Date Expiration Date Visits Requested Visits Authorized [id number] Pending Review Perform Procedure 11/01/2024 11/01/2025 1 1 * Imaging (Routine) - Pending Review Specialty Diagnoses / Procedures Referred By Conttimothy maldonado Referred To Contact Cardiology Diagnoses Coronary artery disease involving flandreau coronary artery of flandreau heart without angina pectoris PVD (peripheral vascular disease) Other specified symptoms and signs involving the circulatory and respiratory systems Procedures Vascular US carotid artery duplex bilateral Jerome Pena CNP [address] [place] [address] Phone: tel: fax: Referral ID Status Reason Start Date Expiration Date Visits Requested Visits Authorized [id number] Pending Review Perform Procedure 11/01/2024 11/01/2025 1 1 Encounter Details Date Type Department Care Team (Late st Contact Info) Description 11/01/2024 Orders Only Cardiothoracic Surgery [address] [place] [address] Jerome Pena CNP [address] [place] [address] Coronary artery disease involving flandreau coronary artery of flandreau heart without angina pectoris (Primary Dx); PVD (peripheral vascular disease); Shortness of breath; Other specified symptoms and signs involving the circulatory and respiratory systems Social History Tobacco Use Types Packs/Day Years Used Date Smoking Tobacco: Former Cigarettes - 1994 Smokeless Tobacco: Never Alcohol Use [...] Info) Description 11/30/2024 1:30 PM EDT Appointment [facility] Vascular Ultrasound Imaging [address] [place] [address] 11/30/2024 3:00 PM EDT Follow-Up [facility] Heart [facility] Vascular Cardiothoracic Surgery Center [address] [place] [address] Jerome Pena CNP [address] [place] [address] 12/25/2024 9:45 AM EDT Office Visit [facility] [address] [place] [address] Jeffery Sosa MD [address] [facility] [place] [address] Scheduled Orders Name Type Priority Associated Diagnoses Orde r Schedule Vascular US carotid artery duplex bilateral Vascular Ultrasound Routine Coronary artery disease involving flandreau coronary artery of flandreau heart without angina pectoris PVD (peripheral vascular disease) Other specified symptoms and signs involving the circulatory and respiratory systems Expected: 11/01/2024 (Approximate), Expires: 01/01/2025 Vascular US lower extremity arterial duplex bilateral Vascular Ultrasound Routine Coronary artery disease involving flandreau coronary artery of flandreau heart without angina pectoris PVD (peripheral vascular disease) Expected: 11/01/2024 (Approximate), Expires: 01/01/2025 Pulmonary function testing Spirometry; DLCO PFT Routine Coronary artery disease involving flandreau coronary artery of flandreau heart without angina pectoris PVD (peripheral vascular disease) Shortness of breath Expected: 11/01/2024 (Approximate), Expires: 01/01/2025 documented as of this encounter Visit Diagnoses Diagnosis Coronary artery disease involving flandreau coronary artery of flandreau heart without angina pectoris- Primary PVD (peripheral vascular disease) Unspecified peripheral vascular disease Shortness of breath Other specified symptoms and signs involving the circulatory and respiratory systems documented in this encounter Care Teams Handyperson Relationship Specialty Start Date End Date Pierce Cartwright MD [address] [facility] [address] [address] PCP - General 12/11/21 Franklin Stevens MD [address] [place] [phone] Consulting Physician Urology 08/30/24 Nephrology Consulting Physician Nephrology 01/12/22 documented as of this encounter
--- OUTSIDE RECORDS SUMMARY | 2024-11-17 12:49 | XMS_ITS | Encounter Summary ---
Author Organization [facility] Address [address] [place] [address] Care Team Providers Care Electrician Bus Name Role Phone Pierce Cartwright MD Primary Care Provider [phone] Franklin Stevens MD Unavailable Encounter Details Date Type Department Care Team (Late st Contact Info) Description 11/06/2024 Telephone [facility] [address] [place] [address] Saida Briggs MA Social History Tobacco Use Types Packs/Day Years Used Date Smoking Tobacco: Former Cigarettes 1 1 983 - 1994 Smokeless Tobacco: Never Alcohol Use Standard Drinks/Week Comments Not Currently 0 (1 standard drink = 0.6 oz pur e alcohol) PHQ-2 Answer Date Recorded Patient Health Questionnaire-2 Score 0 10/31/2024 [place] Safety & Environment Answer Date Rec orded [...] surgeon advised them to speak to his back filler operator. advise that they are going on vacation [...] Info) Description 11/30/2024 1:[address] [facility] Vascular Ultrasound Imaging [address] [place] [address] 11/30/2024 3:00 PM EDT Follow-Up [facility] Heart and Vascular Cardioth[facility]acic [facility] [address] [place] [address] Jerome Pena, CRAP SHOOTER [address] [place] [address] 12/25/2024 9:45 AM EDT Office Visit [facility] [address] [place] [address] Jeffery Sosa MD [address] [facility] [address] [facility] [place] [address] documented as of this encounter Visit Diagnoses Not on filedocumented in this encounter Care Teams Electrician Bus Relationship Specialty Start Date End Date Pierce Cartwright MD [address] [facility] [address] [address] PCP - General 12/11/21 Franklin Stevens MD [address] [place] [address] Consulting Physician Urology 08/30/24 Nephrology Consulting Physician Nephrology 01/12/22 documented as of this encounter
--- OUTSIDE RECORDS SUMMARY | 2024-11-17 12:49 | XMS_ITS | Encounter Summary ---
Author Organization [facility] Address [address] [place] [address] Care Team Providers Care Slitter Processed Film Name Role Phone Pierce Cartwright MD Primary Care Provider [phone] Encounter Details Date Type Department Care Team (Late st Contact Info) Description 10/09/2024 Abstract [facility] [address] [place] [phone] Galo Corado DPM [address] [place], [place] [phone] Social History Tobacco Use Types Packs/Day Years [...] [address] [place] [address] Selam Larsen DPM [address] [place] [address] documented as of this encounter Visit Diagnoses Not on filedocumented in this encounter Care Teams Slitter Processed Film Relationship Specialty Start Date End Date Pierce Cartwright MD [address] [place] [address] PCP - General Family Medicine 08/12/22 documented as of this encounter
--- OUTSIDE RECORDS SUMMARY | 2024-11-17 12:49 | XMS_ITS | Encounter Summary ---
Author Organization [facility] Address [address] [place] [address] Care Team Providers Care Manager Sterile Name Role Phone Pierce Cartwright MD Primary Care Provider [phone] Franklin Stevens MD Unavailable Reason for Visit * Reason Comments Med Refill Encounter Details Date Type Department Care Team (Late Contact Info) Description 01/07/2023 Refill [facility] [address] [place] [address] Jeffery Sosa MD [address] [facility] [address] [facility] [place] [address] Essential hypertension Social History Tobacco Use Types [...] Info) Description 11/30/2024 1:30 PM EDT Appointment [facility] Vascular Ultrasound Imaging [address] [place] [address] 11/30/2024 3:00 PM EDT Follow-Up [facility] [address] [place] [address] Jerome Pena, EMERGENCY MEDICAL SERVICE MANAGER [address] [place] [address] 12/25/2024 9:45 AM EDT Office Visit [facility] [address] [place] [address] Jeffery Sosa MD [address] [facility] [address] [place] [address] documented as of this encounter Visit Diagnoses Diagnosis Essential hypertension Unspecified essential hypertension documented in this encounter Care Teams Manager Sterile Relationship Specialty Start Date End Date Pierce Cartwright MD [address] [facility] [address] [address] PCP - General 12/11/21 Franklin Stevens MD [address] [place] [address] Consulting Physician Urology 08/30/24 Nephrology Consulting Physician Nephrology 01/12/22 documented as of this encounter
[2024-11-17 12:55] LABS: Hemoglobin 9.6 g/dL (14.0-18.0)
--- OUTSIDE RECORDS SUMMARY | 2024-11-17 12:59 | XMS_ITS | CCD ---
Author Organization [facility] Care Team Providers Care Skin Diver Name Role Phone Cristobal Butts Unavailable Douglas Juárez MD Primary Care Provider Douglas Juárez MD Primary Care Provider MD Douglas Juárez Primary Care Provider MD Cristobal Butts Attending Provider [phone] Douglas Juárez MD Primary Care Provider Ford Sam Unavailable Douglas Juárez MD Primary Care Provider [phone] MD Douglas Juárez Primary Care Provider DO Lambert Blanc Emergency Provider MD Cornelio Simon Admit Provider MD Cornelio Simon Attending Provider [phone] MD Ashutosh Thomas Other Provider MD Yvonne Barboza Other Provider HARRY Griggs Other Provider MD Sohan Kellogg Other Provider HARRY Griggs Attending Provider [phone] MD Gopal Larsen Emergency Provider MD Salvador Alonso Admit Provider MD Salvador Alonso Attending Provider MD Cristobal Butts Other Provider HARRY Luis Provider [phone] DO Scotty Kahn Attending Provider MD Sohan [...] Attending Provider MD Gopal Larsen Emergency Provider [phone] MD Salvador Alonso Admit Provider MD Cristobal Butts Other Provider HARRY Luis Other Provider DO Scotty Kahn Attending Provider MD Sohan Kellogg Attending Provider MD Caleb Farrar Admit Provider [phone] MD Caleb Farrar Attending Provider CRISTOBAL BUTTS Admitting Unavailable CRISTOBAL BUTTS Attending Unavailable DR DOUGLAS OBRIEN Primary Care Unavailable CRISTOBAL BUTTS Consulting Unavailable ALEN CEDILLO Admitting Unavailable ALEN CEDILLO Attending Unavailable DR DOUGLAS OBRIEN Primary Care Unavailable ALEN CEDILLO Consulting Unavailable PAOLA ZHANG Admitting Unavailable PAOLA ZHANG Attending Unavailable MARQUITA ., DR COLE Primary Care Unavailable PAOLA ZHANG Consulting Unavailable KISHOR, BROCK Vizcarra Admitting Unavailable HIGHLJAYLAN, BROCK Vizcarra Attending Unavailable HOShannon ., DR COLE Primary Care Unavailable Fidel [...] Unavailable BAKHELENSCECILIOIZ Attending Unavailable MARQUITA ., DR COLE Primary [...] Provider Douglas Juárez MD Primary Care Provider [phone] EDDY LARSEN Attending Unavailable KYLIE, LEANN Isaacs Attending Unavailable EDDY LARSEN Referring Unavailable EDDY LARSEN Attending Unavailable KYLIE, LEANN Isaacs Attending Unavailable EDDY LARSEN Attending Unavailable KYLIE, LEANN Isaacs Attending Unavailable EDDY LARSEN Attending Unavailable DERISO, OTIS Referring Unavailable DERISO, OTIS Referring Unavailable AKLUCINDA REVELES Referring Unavailable CASIMIRO SOSA Attending Unavailable CASIMIRO SOSA Attending Unavailable JANELLE LOGAN Attending Unavailable CASIMIRO SOSA Referring Unavailable STEFFIMULUGETA CROOK Referring Unavailable GOPAL GUADALUPE Attending Unavailable LUCINDA RODRIGUES Referring Unavailable CASIMIRO SOSA Admitting Unavailable CASIMIRO SOSA Attending Unavailable LUCINDA RODRIGUES Referring Unavailable MOCASIMIRO REYES Referring Unavailable Allergies Allergy Classification Reported Allergen(s) Allergy Type Date of Onset Reaction(s) Facility (4 sources) sulfaSALAzine Drug Allergy Unknown [facility] Other (20 sources) Sulfonamides (Antibiotic); Translations: [SULFA (SULFONAMIDE ANTIBIOTICS)] Propensity to adverse reactions to drug 07-23-19 Unknown [facility] (1 source) Sulfonamide Drug allergy Unknown [facility] Other (1 source) Sulfonamides (Antibiotic) Drug allergy (disorder) [facility] Repository (1 source) Sulfonamides (Antibiotic) Drug allergy (disorder) 06-12-19 [facility] Repository (2 sources) Sulfonamides (Antibiotic); Translations: [sulfa drugs] Propensity to adverse reactions to drug Patient reported problems (finding) [facility] Medications Current Medications Medication Drug Class(es) Dates [...] source) Corticosteroid Start: 024 Flonase 0.05 mg/inh [place] 1 spray(s), Nasal, Daily, Refill(s) 0 Start [...] Active take 10 mL intravenously every w [place] Venofer 20 MG/ML 200 mg or 10 [...] Start: 05-05-2022 take 1 tablet by rocio three times daily Isosorbide Dinitrate 10 mg [...] take 1 tablet by rocio once daily Levothyroxine 100 mcg tablet Active 100 MCG PO Daily May 05, 2022 1:00am take 1 tablet by rocio once daily in the morning Levothyroxine Sodium 100 MCG 1 tablet in the morning on an empty stomach Orally Once a day Active take 1 capsule by [facility] once daily before breakfast levothyroxine 100 mcg cap Take 100 mcg by mouth daily before breakfast. 0 Active Comment on above: Take 100 mcg by momo h daily before breakfast. liothyronine sodium 0.005 mg oral tablet (19 sources) l-Triiodothyronine Start: 4 take 2 tablets by mouth once daily liothyronine 5 mcg Tab 10 mcg = 2 tab(s), Oral, Daily, Refills(s) 0 Start Date: 09/09/23 Status: Ordered Start: 05-20-2022 take 1 tablet by rocio once daily Liothyronine 5 mcg tablet Active 10 MCG PO Daily May 20, 2022 1:00am Start: 05-20-2022 take 10 ug by mouth once daily Liothyronine Active 10 MCG PO Daily May 20, 2022 1:00am take 2 tablets by [facility] once daily Liothyronine Sodium 5 MCG TAKE [...] 1:00am Start: 05-05-2022 take 1 tablet by [facility] once daily Multivitamin Active 1 TAB PO Daily May 05, 2022 12:00am take 1 tablet by [facility] once daily Multi Vitamin - 1 tablet [...] 1 capsule by mo ut once daily. Multivitamin Tablet (1 source) Start: [...] Coronary arteriosclerosis; Translations: [Atherosclerotic heart disease of [place] coronary artery without angina pectoris] Onset: 2 [...] aftercare (3 sources) Antibiotic therapy indicated; Translations: [custodial (current) use of antibiotics] 06-12-2022 Episodic Comment on above: Problem List clean-u p per request of Phys. EHR Cmte Other aftercare (2 sources) custodial (current) use of insulin; Translations: [custodial (current) use of insulin] Onset: 5 Episodic [...] Onset: 10-02-2021 Episodic Other aftercare (3 sources) custodial (current) use of antibiotics; Translations: [Long-term (current) [...] Test Name Value Interpretation Reference Range Facility 11-14-2024 29 Addended by: STEVE TOM on: 11/14/2024 03:40 PM Modules accepted: Orders [facility] 11-14-2024 36 Spoke with patient a nd his he is scheduled for his US 11/30 @1:30 pm. [facility] 36 Call placed to Jennifer raya to get reports and images for US Arterial duplex and Carotid. Patient needs vein mapping Mimi stated that they do not do those there. Patient is scheduled for PFT and ECHO 11/17. Called to inform patient that he needs to get scheduled here for US vein mapping no answer lmom to cb. [facility] Abstracton 11-08-2024 Abstract [id number] Gopal Yates 1965 M Date Provider Department Center 11/08/2024 2020-KAYLI ZAYAS [facility] [place] [facility] Family History Problem Relation Age of Onset Alzheimer's disease Mother Hypertension Mother Breast cancer Mother Coronary artery disease Father Hypertension Father Diabetes Father Stroke Father COPD Father Hyperlipidemia Father Coronary artery disease Paternal Grandmother Family Status - Relation Status Age at Mother Father Daughter Alive Daughter Alive Paternal Grandmother [facility] 36on 11-06-2024 36 Phone call from patients , states they talked to the thoracic surgeon in reference to Gopal having bypass, per they told the thoracic surgeon they wanted to wait until after the of the year, surgeon advised them to speak to his repair armature winder. advise that they are going on vacation [...] the first of the year. Please advise. [facility] 36on 11-03-2024 36 Patient wanted order s (labs,US,PFT) sent to [place] these were faxed over to [phone]. [facility] Telephoneon 11-03-2024 Telephone [id number] Gopal Yates 1965 M Date Provider Department Center 11/03/202418868-OTJFVGSTEVE [place] [facility] Family History Problem Relation Age of Onset Alzheimer's disease Mother Hypertension Mother Breast cancer Mother Coronary artery disease Father Hypertension Father Diabetes Father Stroke Father COPD Father Hyperlipidemia Father Coronary artery disease Paternal Grandmother Family Status - Relation Status Age at Mother Father Daughter Alive Daughter Alive Paternal Grandmother Reason for Visit and Comments: Other [Other] [facility] Orders Onlyon 11-01-2024 Orders Only [id number] Gopal Yates 1965 M Date Provider Department Center 11/01/2024 113-JANELLE LOGAN CT Surgery None Family History Problem Relation Age of Onset Alzheimer's disease Mother Hypertension Mother Breast cancer Mother Coronary artery disease Father Hypertension Father Diabetes Father Stroke Father COPD Father Hyperlipidemia Father Coronary artery disease Paternal Grandmother Family Status - Relation Status Age at Mother Father Daughter Alive Daughter Alive Paternal Grandmother [facility] Orders Only [id number] Gopal Yates 1965 M Date Provider Department Center 11/01/202478563-PHWTAVSTEVE [place]IRD [place] [facility] Family History Problem Relation Age of Onset Alzheimer's disease Mother Hypertension Mother Breast cancer Mother Coronary artery disease Father Hypertension Father Diabetes Father Stroke Father COPD Father Hyperlipidemia Father Coronary artery disease Paternal Grandmother Family Status - Relation Status Age at Mother Father Daughter Alive Daughter Alive Paternal Grandmother [facility] 29on 10-31-2024 29 Addended by: STEVE TOM on: 11/01/2024 02:06 PM Modules accepted: Orders [facility] 29 Addended by: STEVE TOM on: 11/01/2024 01:41 PM Modules accepted: Orders [facility] Consulton 10-31-2024 Consult [id number] Gopal Yates 1965 M Date Provider Department Center 10/31/2024 113-DOREEN, [facility]CTS [place] [facility] Family History Problem Relation Age of Onset Alzheimer's disease Mother Hypertension Mother Breast cancer Mother Coronary artery disease Father Hypertension Father Diabetes Father Stroke Father COPD Father Hyperlipidemia Father Coronary artery disease Paternal Grandmother Family Status - Relation Status Age at Mother Father Daughter Alive Daughter Alive Paternal Grandmother Level of Service:07855 HI OFFICE/OP CONSLTJ NEW/EST PT MOD MDM 40 MINUTES Reason for Visit and Comments: Consult [484] - Referred by Dr Sosa [facility] HPon 10-19-2024 HP History Of Present Illness Gopal Yates is [...] In May 2022 he was admitted to [facility] for osteomyelitis and had toe amputations. In [...] disease (CKD), Anxiety, CHF (congestive heart failure) (CMS/HCC), Chronic fatigue syndrome, Chronic sinusitis, Coronary artery disease, Diabetic foot ulcers (CMS/HCC), Diabetic neuropathy ([facility]), ED (erectile dysfunction), ESRD (end stage renal disease) ([facility]) (06/17/2022), GERD (gastroesophageal reflux disease), Heart valve disease, History of pleural effusion, History of tobacco use, Hyperlipidemia, Hypertension, Hypothyroidism, Myocardial infarction ([facility]), Osteomyelitis ([facility]), Panic attack, Pericardial effusion, Proteinuria, Pulmonary nodules, PVD (peripheral vascular disease), Secondary hyperparathyroidism of renal origin, Swelling of both lower extremities, Type 2 diabetes mellitus ([facility]), and Vitamin D deficiency. Surgical History He [...] ventricular ejection fracti (more content not included)... [facility] NURSNOTEon 10-19-2024 NURSNOTE RN educated pt [...] off of unit with all of belongings. [facility] 36on 10-17-2024 36 TB lab called brynn raymond of 11.11. FYI. Result scanned into media planner / buyer for your review. [facility] 2910-05-2024 29 Addended by: IRAJ PEREZ on: 10/05/2024 12:21 PM Modules accepted: Orders [facility] 10-05-2024 36 Attempted to call patient to let him know his cardiac cath w/ Dr. Sosa had been scheduled. No answer / unable to LVM. Patient is scheduled for 10/19/24 () at 12:30 pm , with arrival at 11 am. Patient will need pre-procedure labs done Wednesday10/16/24 locally ([place]). [facility] 36 ----- Message from Lily Sosa MD sent at 10/05/2024 2:36 AM EDT ----- The stress test showed ischemia. he needs cardiac cath. Please schedule for right heart cath and coronary angiogram. ----- Message ----- From: Interface, Radiology Results In Sent: 10/04/2024 2:38 PM EDT To: Casimiro Sosa MD [facility] Results Follow-Upon 10-06-19 Results Follow-Up [id number] Gopal Yates 1965 M Date Provider Department Center 10/05/2024 Ronna9-ANA, IRAJ TXP None Family History Problem Relation Age of Onset Alzheimer's disease Mother Hypertension Mother Breast cancer Mother Coronary artery disease Father Hypertension Father Diabetes Father Stroke Father COPD Father Hyperlipidemia Father Coronary artery disease Paternal Grandmother Family Status - Relation Status Age at Mother Father Daughter Alive Daughter Alive Paternal Grandmother Reason for Visit and Comments: Cardiac testing results [Other] [facility] 10-04-2024 30 Lexiscan stress test Patient [...] and hemodynamically stable Full final report from repair armature winder to follow Anel Christiansen [facility] Cardiology Available 7a-3pm via [employer] [phone] [facility] 09-06-2024 36 PT is cleared by ID for transplant, no appt needed. Normal [facility] Documentationon 09-06-2024 Documentation [id number] Gopal Yates 1965 M Date Provider Department [place] 09/06/2024 [facility] INF Antonietta Heal Family History Problem Relation Age of Onset Alzheimer's disease Mother Hypertension Mother Breast cancer Mother Coronary artery disease Father Hypertension Father Diabetes Father Stroke Father COPD Father Hyperlipidemia Father Coronary artery disease Paternal Grandmother Family Status - Relation Status Age at Mother Father Daughter Alive Daughter Alive Paternal Grandmother Normal [facility] B-TYPE NATRIURETIC PEPTIDEon 08-30-2024 Natriuretic peptide B (Bld) [Mass/Vol] 549 pg/mL High 0-100 [facility] Comment on above: Performed By: #### L [id number] #### [facility] (BEAKER) [address] [place] [address] BILIRUBIN, DIRECTon 08-31-19 25 Magnesium [Mass/Vol] 0.1 mg/dL Normal 0-0.2 [facility] Comment on above: Performed By: #### L [id number] ####[facility] (BEAKER)[address] [place] [address] C-PEPTIDEon 08-30-2024 C PEPTIDE (NG/ML) IN SER/PLAS 14.5 ng/mL High 0.5-3.3 [facility] Comment on above: Result Comment: INTE RPRETIVE INFORMATION: Serum, C-Peptide Reference Interval applies to fasting specimens. To convert to nmol/L, multiply by 0.33 Performed By: [employer] [address] [place] [address] [employer] Team Leader: Cody Gurrola MD, PhD CLIA Number: [id number] Performed By: #### L [id number] #### [facility] , CBC WITH AUTO DIFFERENTIALon 08-30-2024 Basophils (Bld) [#/Vol] 0.03 10*3/uL Normal 0.00-0.20 [facility] Comment on above: Performed By: #### L [id number] ####[facility] (BEAKER)[address] [place] [address] Basophils/100 WBC (Bld) 0.3 % Normal 0.0-1.0 [facility] Comment on above: Performed By: #### L [id number] ####[facility] ([facility])[address] [place] [address] Eosinophils (Bld) [#/Vol] 0.16 10*3/uL Normal 0.00-0.50 [facility] Comment on above: Performed By: #### L [id number] ####[facility] (BEAKER)[address] [place] [address] Eosinophils/100 WBC (Bld) 1.6 % Normal 0.0-6.0 [facility] Comment on above: Performed By: #### L [id number] ####[facility] (BEAKER)[address] [place] [address] Erythrocyte distribution width (RBC) [Ratio] 13.9 % Normal 11.5-15.0 [facility] Comment on above: Performed By: #### L [id number] ####[facility] (BEAKER)[address] [place] [address] ERYTHROCYTE MEAN CORPUSCULAR HEMOGLOBIN CONCENTRATION (G/DL) BY AUTOMATED 33.8 g/dL Normal 32.0-35.0 [facility] Comment on above: Performed By: #### L [id number] ####[facility] (BEAKER)[address] [place] [address] Hematocrit (Bld) [Volume fraction] 27.5 % Low 39.0-50.0 [facility] Comment on above: Performed By: #### L [id number] ####[facility] (BEAKER)[address] [place] [address] Hemoglobin (Bld) [Mass/Vol] 9.3 g/dL Low 13.0-17.0 [facility] Comment on above: Performed By: #### L [id number] ####[facility] (BEAKER)[address] [place] [address] Immature granulocytes (Bld) [#/Vol] 0.04 10*3/uL Normal 0.00-0.20 [facility] Comment on above: Performed By: #### L [id number] ####[facility] ([facility] [place] [address] Immature granulocytes/100 WBC (Bld) 0.4 % Normal 0.0-1.0 [facility] Comment on above: Performed By: #### L [id number] ####[facility] ([facility] [place] [address] Lymphocytes (Bld) [#/Vol] 1.18 10*3/uL Low 1.20-4.00 [facility] Comment on above: Performed By: #### L [id number] ####[facility] ([facility] [place] [address] Lymphocytes/100 WBC (Bld) 11.9 % Low 20.0-45.0 [facility] Comment on above: Performed By: #### L [id number] ####[facility] ([facility] [place] [address] MCH (RBC) [Entitic mass] 30.7 pg Normal 27.0-33.0 [facility] Comment on above: Performed By: #### L [id number] ####[facility] (BEAKER)[address] [place] [address] MCV (RBC) [Entitic vol] 90.8 fL Normal 82.0-98.0 [facility] Comment on above: Performed By: #### L [id number] ####[facility] (BEAKER)[address] [place] [address] Monocytes (Bld) [#/Vol] 0.69 10*3/uL Normal 0.10-1.00 [facility] Comment on above: Performed By: #### L [id number] ####[facility] (BEAKER)[address] [place] [address] Monocytes/100 WBC (Bld) 6.9 % Normal 5.0-12.0 [facility] Comment on above: Performed By: #### L [id number] ####[facility] ([facility])[address] [place] [address] Neutrophils (Bld) [#/Vol] 7.85 10*3/uL High 1.60-7.60 [facility] Comment on above: Performed By: #### L [id number] ####[facility] ([facility])[address] [place] [address] Neutrophils/100 WBC (Bld) 78.9 % High 40.0-72.0 [facility] Comment on above: Performed By: #### L [id number] ####[facility] ([facility])[address] [place] [address] NRBC (PER 100 WBCS) BY AUTOMATED COUNT 0.0 % Normal 0 [facility] Comment on above: Performed By: #### L [id number] ####[facility] ([facility])[address] [place] [address] PLATELETS (10*3/UL) IN BLOOD AUTOMATED COUNT 167 10*3/uL Normal 150-400 [facility] Comment on above: Performed By: #### L [id number] ####[facility] ([facility])[address] [place] [address] RBC (Bld) [#/Vol] 3.03 10*6/uL Low 4.20-5.70 [facility] Comment on above: Performed By: #### L [id number] ####[facility] ([facility])[address] [place] [address] WBC (Bld) [#/Vol] 9.95 10*3/uL Normal 4.00-10.60 [facility] Comment on above: Performed By: #### L [id number] ####[facility] ([facility] [place] [address] COMPREHENSIVE METABOLIC PANE Stewart 08-30-2024 Albumin [Mass/Vol] 3.3 g/dL Low 3.5-5.7 [facility] Comment on above: Performed By: #### L [id number] ####[facility] ([facility])[address] [place] [address] ALP [Catalytic activity/Vol] 115 U/L High 34-104 [facility] Comment on above: Performed By: #### L [id number] ####[facility] (BEAKER)[address] [place] [address] ALT [Catalytic activity/Vol] 17 U/L Normal 7-52 [facility] Comment on above: Performed By: #### L [id number] ####[facility] (BEAKER)[address] [place] [address] Anion gap [Moles/Vol] 15 mmol/L Normal 7-20 [facility] Comment on above: Performed By: #### L [id number] ####[facility] (BEAKER)[address] [place] [address] AST [Catalytic activity/Vol] 13 U/L Normal 13-39 [facility] Comment on above: Performed By: #### L [id number] ####[facility] (BEAKER)[address] [place] [address] Bilirubin [Mass/Vol] 0.4 mg/dL Normal 0.3-1.0 [facility] Comment on above: Performed By: #### L [id number] ####[facility] (BEAKER)[address] [place] [address] Calcium [Mass/Vol] 8.6 mg/dL Normal 8.6-10.3 [facility] Comment on above: Performed By: #### L [id number] ####[facility] ([facility])[address] [place] [address] Chloride [Moles/Vol] 99 mmol/L Normal 98-107 [facility] Comment on above: Performed By: #### L [id number] ####[facility] ([facility])[address] [place] [address] CO2 [Moles/Vol] 30 mmol/L Normal 21-31 [facility] Comment on above: Performed By: #### L [id number] ####[facility] ([facility])[address] [place] [address] Creatinine [Mass/Vol] 10.34 mg/dL High 0.70-1.30 [facility] Comment on above: Performed By: #### L [id number] ####[facility] ([facility])[address] [place] [address] GLOMERULAR FILTRATION RATE ML/MIN/1.73 SQ M.PREDICTED 5.2 mL/min/1.73m*2 Low >60.0 [facility] Comment on above: Result Comment: [facility]???s estimated glomerular filtration rate (eGFR) [...] group of individuals. Performed By: #### L [id number] ####[facility] ([facility])[address] [place] [address] Glucose [Mass/Vol] 148 mg/dL High 70-100 [facility] Comment on above: Performed By: #### L [id number] ####[facility] ([facility])[address] [place] [address] Potassium [Moles/Vol] 3.8 mmol/L Normal 3.5-5.1 [facility] Comment on above: Performed By: #### L [id number] ####[facility] ([facility])[address] [place] [address] Protein [Mass/Vol] 6.6 g/dL Normal 6.0-8.3 [facility] Comment on above: Performed By: #### L [id number] ####[facility] (BEAKER)[address] [place] [address] Sodium [Moles/Vol] 140 mmol/L Normal 136-145 [facility] Comment on above: Performed By: #### L [id number] ####[facility] (BEAKER)[address] [place] [address] Urea nitrogen [Mass/Vol] 40 mg/dL High 7-25 [facility] [facility] Comment on above: Performed By: #### L [id number] ####[facility] (BEAKER)[address] [place] [address] UREA NITROGEN/CREATININE (MASS RATIO) IN SER/PLAS 3.9 Normal [facility] Comment on above: Performed By: #### L [id number] ####[facility] (BEDEVIKA)[address] [place] [address] CT ABDOMEN PELVIS WO RENAL R ECIPIENTon [...] reasonably achievable. Electronically signed: Jeremy Marshall. Normal [facility] CT CHEST WO IV CONTRASTon [...] Esteban Orozco MD. 8 Invalid Interpretation Code [facility] Clinical Supporton 5 Clinical Support [id number] Gopal Yates 1965 M Date Provider Department Center 08/30/2024 GOPAL SANTANA None Family History Problem Relation Age of Onset Alzheimer's disease Mother Hypertension Mother Breast cancer Mother Coronary artery disease Father Hypertension Father Diabetes Father Stroke Father COPD Father Hyperlipidemia Father Coronary artery disease Paternal Grandmother Family Status - Relation Status Age at Mother Father Daughter Alive Daughter Alive Paternal Grandmother Reason for Visit and Comments: Kidney Eval [[id number]] Normal [facility] HEMOGLOBIN A1Con 08-30-2024 Glucose [Mass/Vol] 154 mg/dL Normal [facility] Comment on above: Performed By: #### L [id number] #### [facility] , HbA1c (Bld) [Mass fraction] 7.0 % High 4.0-6.0 [facility] Comment on above: Performed By: #### L [id number] #### [facility] , HEPATITIS A ANTIBODY, IGMon 08-30-2024 HEPATITIS A VIRUS IGM AB PRESENCE IN SER/PLAS Non-Reactive Normal Nonreactive [facility] Comment on above: Performed By: #### L [id number] #### [facility] , HEPATITIS B CORE ANTIBODY, I GMon 08-30-2024 HEPATITIS B VIRUS CORE IGM AB PRESENCE IN SER/PLAS BY IMMUNOASSY Negative Normal Negative [facility] Comment on above: Result Comment: INTE RPRETIVE INFORMATION: Hepatitis B Core Ab, IgM This assay should not be used for blood donor screening, associated re-entry protocols, or for screening Human Cells, Tissues and Cellular and Tissue-Based Products (HCT/P). Performed By: [employer] [address] [place] [address] [employer] Team Leader: Cody Gurrola MD, PhD CLIA Number: [id number] Performed By: #### L [id number] ####[facility] ([facility])[address] [place] [address] HEPATITIS B CORE ANTIBODY, T OTALon 08-30-2024 HEPATITIS B VIRUS CORE AB (PRESENCE) IN SER/PLAS BY IMM Non-Reactive Normal Nonreactive [facility] Comment on above: Performed By: #### L [id number] #### [facility] (BEAKER) [address] [place] [address] HEPATITIS B SURFACE ANTIBODY QUANTon 08-30-2024 HEPATITIS B VIRUS SURFACE AB (MIU/ML) IN SERUM 0.36 mIU/mL Normal [facility] Comment on above: Result Comment: INTE RPRETATION: NONREACTIVE <8.00 mIU/mL INDETERMINATE 8.00 - 12.00 mIU/mL REACTIVE >12 mIU/mL Performed By: #### L [id number] #### [facility] , HEPATITIS B SURFACE ANTIGENo n 08-30-2024 HEPATITIS B VIRUS SURFACE AG PRESENCE IN SERUM Non-Reactive Normal Nonreactive [facility] Comment on above: Performed By: #### L [id number] #### [facility] , HEPATITIS C ANTIBODYon 08-30 HEPATITIS C VIRUS AB PRESENCE IN SERUM Non-Reactive Normal Nonreactive [facility] Comment on above: Performed By: #### L [id number] #### [facility] , HIV COMBO 4Gon 08-30-2024 HIV COMBO 4G Negative Normal Negative [facility] Comment on above: Performed By: #### L [id number] ####[facility] (BEAKER)[address] [place] [address] HLA ABC CLASS I TYPINGon A*-1 2 [facility] Comment on above: Performed By: #### L [id number] ####[facility] (HISTOTRAC)[address] [place] [address] [place] A*-2 3 [facility] Comment on above: Performed By: #### L [id number] ####[facility] (HISTOTRAC)[address] [place] [address] [place] B*-1 8 [facility] Comment on above: Performed By: #### L [id number] ####[facility] (HISTOTRAC)[address] [place] [address] [place] B*-2 44 [facility] Comment on above: Performed By: #### L [id number] ####[facility] (HISTOTRAC)[address] [place] [address] [place] BW*-1 4 [facility] Comment on above: Performed By: #### L [id number] ####[facility] (HISTOTRAC)[address] [place] [address] [place] BW*-2 6 [facility] Comment on above: Performed By: #### L [id number] ####[facility] (HISTOTRAC)[address] [place] [address] [place] C*-1 5 [facility] Comment on above: Performed By: #### L [id number] ####[facility] (HISTOTRAC)[address] [place] [place] [address] [place] C*-2 7 [facility] Comment on above: Performed By: #### L [id number] ####[facility] (HISTOTRAC)[address] [place] [address] [place] HLA ABC CLASS I TYPING TEST METHOD Class I typing by PCR-SSOP [employer] [facility] Comment on above: Performed By: #### L [id number] ####[facility] (HISTOTRAC)[address] [place] [address] [place] HLA ABC TESTED DATE [facility] Comment on above: Performed By: #### L [id number] ####[facility]YP[facility] (HISTOTRAC)[address] [place] [address] CLASS II TYPINGon DPB1*-1 04:01 [facility] Comment on above: Performed By: #### L [id number] ####[facility]YP[facility] (HISTOTRAC)[address] [place] [address] [place] DQA1*-1 05 [facility] Comment on above: Performed By: #### L [id number] ####[facility] TISSUE [facility]YP[facility] (HISTOTRAC)[address] [place] [address] [place] DQB1*-1 2 [facility] Comment on above: Performed By: #### L [id number] ####[facility] T[facility]YP[facility] (HISTOTRAC)[address] [place] [address] [place] DQB1*-2 7 [facility] Comment on above: Performed By: #### L [id number] ####[facility]YP[facility] (HISTOTRAC)[address] [place] [address] [place] DRB1*-1 17 [facility] Comment on above: Performed By: #### L [id number] ####[facility] (HISTOTRAC)[address] [place] [address] [facility] DRB1*-2 12 Normal [facility] Comment on above: Performed By: #### L [id number] ####[facility]ISS[facility]YP[facility] (HISTOTRAC)[address] [place] [address] [facility] DRB3*-1 52 Normal [facility] Comment on above: Performed By: #### L [id number] ####[facility]YP[facility] (HISTOTRAC)[address] [place], [place] [address] DRB3*-2 52 [facility] Comment on above: Performed By: #### L [id number] ####[facility] (HISTOTRAC)[address] [place], [place] [address] HLA DR CLASS II TYPING TEST METHOD Class II typing by PCR-SSOP [employer] [facility] Comment on above: Performed By: #### L [id number] ####[facility] (HISTOTRAC)[address] [place] [address] HLA DR TESTED DATE Normal [facility] Comment on above: Performed By: #### L [id number] ####[facility] TISSUE TYP[facility] (HISTOTRAC)[address] [place], [place] [address] LIPID PANELon 08-30-2024 CHOL/HDL 4.6 mg/dL [facility] Comment on above: Performed By: #### L [id number] #### [facility] ([facility]AKER) [address] [place] [address] Cholesterol [Mass/Vol] 124 mg/dL Normal 120-200 [facility] Comment on above: Performed By: #### L [id number] #### [facility] (BEAKER) [address] [place] [address] Magnesium [Mass/Vol] 198 mg/dL High <150 [facility] Comment on above: Result Comment: TRIG LYCERIDE REFERENCE RANGE: 20 YEARS AND OLDER CARDIOVASCULAR RISK LESS THAN 150 mg/dL LOW RISK 150 TO 199 mg/dL BORDERLINE RISK 200 mg/dL AND GREATER HIGH RISK Performed By: #### L [id number] #### [facility] (BEAKER) [address] [place] [address] Magnesium [Mass/Vol] 57 mg/dL Normal 0-160 [facility] Comment on above: Performed By: #### L [id number] #### [facility] (BEAKER) [address] [place] [address] Magnesium [Mass/Vol] 27 mg/dL Normal 23-92 [facility] Comment on above: Performed By: #### L [id number] #### [facility] ([facility]) [address] [place] [address] NON HDL CHOL. (LDL+VLDL) 97 Normal [facility] Comment on above: Performed By: #### L [id number] #### [facility] [address] [place] [address] TOTAL VLDL-C 40 mg/dL Normal 0-40 [facility] Comment on above: Performed By: #### L [id number] #### [facility] ([facility]) [address] [place] [address] Labon 08-30-2024 Lab [id number] Gopal Yates 1965 M Date Provider Department Center 08/30/2024 2245-[facility] RESOURCE [facility] Family History Problem Relation Age of Onset Alzheimer's disease Mother Hypertension Mother Breast cancer Mother Coronary artery disease Father Hypertension Father Diabetes Father Stroke Father COPD Father Hyperlipidemia Father Coronary artery disease Paternal Grandmother Family Status - Relation Status Age at Mother Father Daughter Alive Daughter Alive Paternal Grandmother Normal [facility] PANEL REACTIVE ANTIBODYon HOLD SPECIMEN Hold for add-ons. Normal [facility] Comment on above: Result Comment: Auto resulted. Performed By: #### L [id number] #### [facility] , PROTIME-INRon 08-30-2024 INR IN PPP BY COAGULATION ASSAY 0.95 Normal 0.90-1.10 [facility] Comment [...] 1995;108:231S-246S. Performed By: #### L [id number] #### [facility] ([facility]) [address] [place] [address] PROTHROMBIN TIME (PT) IN PPP BY COAGULATION ASSAY 12.7 Seconds Normal 12.3-14.8 [facility] Comment on above: Performed By: #### L [id number] #### [facility] ([facility]) [address] [place] [address] PSA, SCREENINGon 08-30-2024 PROSTATE SPECIFIC AG (NG/ML) IN SER/PLAS 0.6 ng/mL Normal 0.4-4 [facility] Comment on above: Performed By: #### L [id number] #### [facility] ([facility]) [address] [place] [address] SINGLE ANTIGEN CLASS Ion AB SCREEN COMMENTS Potential specificit es added to the watch list. Normal [facility] Comment on above: Performed By: #### L [id number] ####[facility] (HISTOTRAC)[address] [place] [address] [place] CLASS I LOW RISK AB A:23 Normal [facility] Comment on above: Performed By: #### L [id number] ####[facility] TISSUE TYPING (HISTOTRAC)[address] [place] [address] [place] CLASS I TESTED DATE Normal [facility] Comment on above: Performed By: #### L [id number] ####[facility] (HISTOTRAC)[address] [place] [address] [place] CPRA 0 [facility] Comment on above: Performed By: #### L [id number] ####[facility] (HISTOTRAC)[address] [place] [address] [place] Performed By: #### L [id number] #### [facility] , SIGNED BY Signed by Gopal damon [facility] MT(ASCP), [employer] Supervisor Transplant Immunology [facility] Comment on above: Result Comment: Clas s I Antigen Microbeads Performed By: #### L [id number] ####[facility] (HISTOTRAC)[address] [place] [address] [place] Performed By: #### L [id number] ####[facility] (HISTOTRAC)[address] [place] [address] [place] Performed By: #### L [id number] ####[facility]YP[facility] (HISTOTRAC)[address] [place] [address] [place] Performed By: #### L [id number] #### [facility] , SINGLE ANTIGEN CLASS 1 TEST METHOD Class I Single Antigen Normal [facility] Comment on above: Performed By: #### L [id number] ####[facility]YP[facility] (HISTOTRAC)[address] [place] [address] [place] SINGLE ANTIGEN CLASS IIon AB SCREEN COMMENTS No Specificites Found [facility] Comment on above: Performed By: #### L [id number] #### [facility] , CLASS II TESTED DATE [id number] [facility] Comment on above: Performed By: #### L [id number] #### [facility] , SINGLE ANTIGEN CLASS 2 TEST METHOD Class II Single Antigen Normal [facility] Comment on above: Result Comment: Clas s II Antigen Microbeads Performed By: #### L [id number] #### [facility] , TESTOSTERONE, FREE AND TOTAL , AND SHBGon 08-30-2024 SEX HORMONE BINDING GLOBULIN (NMOL/L) IN SER/PLAS 54 nmol/L Normal 19-76 [facility] Comment on above: Performed By: #### L [id number] #### [facility] [address] [place] [address] TESTOSTERONE (NG/DL) IN SER/PLAS 353 ng/dL Normal 193-740 [facility] Comment on above: Performed By: #### L [id number] #### [facility] [address] [place] [address] TESTOSTERONE FREE (NG/ML) IN SER/PLAS 50.9 pg/mL Normal 47.0-244.0 [facility] Comment on above: Result Comment: The concentration of free testosterone is derived from a mathematical expression based on the constant for the binding of testosterone to albumin and/or sex hormone binding globulin. Test Performed by [facility] [address] [place] [address] - Released 08/30/2024 18:39 Performed By: #### L [id number] #### [facility] [address] [place] [address] TYPE AND SCREENon 08-30-2024 AB SCREEN Negative Normal [facility] Comment on above: Performed By: #### L [id number] #### [facility] , ABO group Nom (Bld) A Normal [facility] Comment on above: Performed By: #### L [id number] #### [facility] , RH TYPE IN BLOOD Positive Normal [facility] Comment on above: Performed By: #### L [id number] #### [facility] , Office Visiton 06-21-2024 Follow-up visit [id number] Gopal Yates 1965 M Date Provider Department Center 06/21/2024 CASIMIRO SANDRA [facility] Family History Problem Relation Age of Onset Alzheimer's disease Mother Coronary artery disease Father Coronary artery disease Paternal Grandmother Family Status - Relation Status Age at Mother Father Paternal Grandmother Level of Service:81124 HI OFFICE/OUTPATIENT ESTABLISHED LOW MDM 20 MIN Normal [facility] Office Visiton 12-22-2023 Follow-up visit [id number] Gopal Yates 1965 M Date Provider Department Center 12/22/2023 CASIMIRO SANDRA [facility] Family History Problem Relation Age of Onset Coronary artery disease Father Coronary artery disease Paternal Grandmother Family Status - Relation Status Age at Father Paternal Grandmother Level of Service:47823 HI OFFICE/OUTPATIENT ESTABLISHED MOD MDM 30 MIN Normal [facility] Lab Reportson 09-09-2023 Lab Reports [id number] FF Normal [facility] Physician Referralon 024 Physician Referral [id number]#[id number] IFF Normal [facility] Vancomycin,Randomon 08-07-19 23 Vancomycin,Random 9.4 ug/mL Normal 5.0-20.0 [facility] Comment on above: Order Comment: Date of last dose?: [id number] Time of last dose?: 1529 Result Comment: Last dose: - PERFORMED BY: [place] [address] PATHOLOGIST [employer] SESAR VAUGHN M.D. Performed By: #### C RP #### [facility] [address] [place] [address] Superficial Wound Cultureon 07-22-2022 Superficial Wound Culture Light Normal Skin Efren 2 Days PERFORMED BY: [place] [address] PATHOLOGIST [employer] SAL[employer] SESAR VAUGHN M.D. [facility] Comment on above: Performed By: #### C RP #### [facility] [address] [place] [address] [place] ECHOCARDIO M/2D COMPLETEon 0 07-09-2022 ECHOCARDIO M/2D COMPLETE Patient: GOPAL YATES Exam Date: 07/09/2022 : 1965 Gender:M Ordering : [facility] Admission #: [id number] Family : Order #: [id number] CLICK HERE TO VIEW EXAM ECHOCARDIOGRAM REPORT [...] Sosa M.D. on 07/09/2022 at 20:28 Normal [facility] Alanine aminotransferase [En zymatic activity/volume] in Serum or PlasmaOrdered By: Caleb Farrar on 06-15-2022 ALT [Catalytic activity/Vol] 17 U/L 7-52 [facility] Albumin [Mass/volume] in Ser um or Plasma by Bromocresol green (BCG) dye binding methoOrdered By: Caleb Farrar on 06-15-2022 Albumin BCG dye [Mass/Vol] 2.2 g/dL 3.5-5.7 [facility] Alkaline phosphatase [Enzyma tic activity/volume] in Serum or PlasmaOrdered By: Caleb Farrar on 06-15-2022 ALP [Catalytic activity/Vol] 148 U/L 34-104 [facility] Aspartate aminotransferase [ Enzymatic activity/volume] in Serum or PlasmaOrdered By: Caleb Farrar on 06-15-2022 AST [Catalytic activity/Vol] 35 U/L 13-39 [facility] Basophils Auto (Bld) [#/Vol] Ordered By: Obcheyennedaandrea Daromar on 06-15-2022 Basophils (Bld) [#/Vol] 0.0 10*3/uL 0.0-0.2 [facility] Basophils/100 WBC Auto (Bld) Ordered By: Obcheyennedaandrea Daromar on 06-15-2022 Basophils/100 WBC (Bld) 0.6 % . [facility] Bilirubin.total [Mass/volume ] in Serum or PlasmaOrdered By: Obadelina Baconomar on 06-15-2022 Bilirubin [Mass/Vol] 0.5 mg/dL 0.3-1.0 [facility] C reactive protein [Mass/vol ume] in Serum or PlasmaOrdered By: Ashutosh Thomas on 06-15-2022 CRP [Mass/Vol] 14.7 mg/dL 0.0-0.5 [facility] C-Reactive Proteinon 023 C-Reactive Protein 14.7 mg/dL High 0.0-0.5 [facility] Comment on above: Result Comment: PERF ORMED BY: [place] [address] PATHOLOGIST [employer] SESAR VAUGHN M.D. Performed By: #### C #### [address] Calcium [Mass/volume] in Ser um or PlasmaOrdered By: Obcheyennedaandrea Baconomar on 06-15-2022 Calcium [Mass/Vol] 8.1 mg/dL 8.6-10.3 [facility] Carbon dioxide, total [Moles /volume] in Serum or PlasmaOrdered By: Obcheyennedah Daromar on 06-15-2022 CO2 [Moles/Vol] 18.0 mmol/L 21.0-31.0 [facility] Chloride [Moles/volume] in S yulissa or PlasmaOrdered By: Obcheyennedah Daromar on 06-15-2022 Chloride [Moles/Vol] 105 mmol/L 98-107 [facility] Complete Blood Count Auto Di ffon 06-15-2022 Basophils (Bld) [#/Vol] 0.0 10*3/uL Normal 0.0-0.2 [facility] Comment on above: Result Comment: PERF ORMED BY: [facility] [place] [address] PATHOLOGIST [employer] SESAR VAUGHN M.D. Performed By: #### G LULS #### Point of Care testing , Basophils/100 WBC (Bld) 0.6 % Normal . [facility] Comment on above: Performed By: #### G LULS #### Point of Care testing , Eosinophils (Bld) [#/Vol] 0.1 10*3/uL Normal 0.0-0.45 [facility] Comment on above: Performed By: #### G LULS #### Point of Care testing , Eosinophils/100 WBC (Bld) 2.0 % Normal . [facility] Comment on above: Performed By: #### G LULS #### Point of Care testing , Erythrocyte distribution width (RBC) [Ratio] 16.3 % High 12.0-14.8 [facility] Comment on above: Performed By: #### G LULS #### Point of Care testing , Hematocrit (Bld) [Volume fraction] 21.3 % Low 38.8-50.0 [facility] Comment on above: Performed By: #### G LULS #### Point of Care testing , Hemoglobin (Bld) [Mass/Vol] 7.1 g/dL Low 13.0-17.0 [facility] Comment on above: Performed By: #### G LULS #### Point of Care testing , Lymphocytes (Bld) [#/Vol] 0.4 10*3/uL Low 1.00-4.8 [facility] Comment on above: Performed By: #### G LULS #### Point of Care testing , Lymphocytes/100 WBC (Bld) 7.0 % Normal . [facility] Comment on above: Performed By: #### G LULS #### Point of Care testing , MCH (RBC) [Entitic mass] 27.1 pg Low 27.5-35.2 [facility] Comment on above: Performed By: #### G BERT #### Point of Care testing , MCV (RBC) [Entitic vol] 81.1 fL Low 83.5-101 [facility] Comment on above: Performed By: #### G HOLGERLS #### Point of Care testing , Mean Corpuscular HGB Conc 33.4 g/dL Normal 32.5-35.6 [facility] Comment on above: Performed By: #### G HOLGERLS #### Point of Care testing , Monocytes (Bld) [#/Vol] 0.6 10*3/uL Normal 0.0-0.8 [facility] Comment on above: Performed By: #### G BERT #### Point of Care testing , Monocytes/100 WBC (Bld) 9.2 % Normal . [facility] Comment on above: Performed By: #### G HOLGERLS #### Point of Care testing , Neutrophils (Bld) [#/Vol] 5.0 10*3/uL Normal 1.8-7.7 [facility] Comment on above: Performed By: #### G HOLGERLS #### Point of Care testing , Neutrophils/100 WBC (Bld) 81.2 % Normal . [facility] Comment on above: Performed By: #### G BERT #### Point of Care testing , NRBC% 0.3 /100{WBC} Normal 0-0.5 [facility] Comment on above: Performed By: #### G HOLGERLS #### Point of Care testing , Platelet mean volume (Bld) [Entitic vol] 9.0 fL Normal 6.6-10.1 [facility] Comment on above: Performed By: #### G HOLGERLS #### Point of Care testing , Platelets (Bld) [#/Vol] 172 10*3/uL Normal 150-450 [facility] Comment on above: Performed By: #### Lily NOEL #### Point of Care testing , RBC (Bld) [#/Vol] 2.63 10*6/uL Low 3.90-5.60 [facility] Comment on above: Performed By: #### Lily NOEL #### Point of Care testing , WBC (Bld) [#/Vol] 6.2 10*3/uL Normal 4.1-10.5 [facility] Comment on above: Performed By: #### Lily NOEL #### Point of Care testing , Comprehensive Metabolic Pane stewart 06-15-2022 Albumin [Mass/Vol] 2.2 g/dL Low 3.5-5.7 [facility] Comment on above: Performed By: #### Lily NOEL #### Point of Care testing , Albumin/Globulin [Mass ratio] 0.6 {ratio} Normal [facility] Comment on above: Performed By: #### Lily NOEL #### Point of Care testing , ALP [Catalytic activity/Vol] 148 U/L High 34-104 [facility] Comment on above: Performed By: #### Lily NOEL #### Point of Care testing , ALT [Catalytic activity/Vol] 17 U/L Normal 7-52 [facility] Comment on above: Performed By: #### Lily NOEL #### Point of Care testing , Anion gap [Moles/Vol] 16.8 mmol/L High 6.0-15.0 [facility] Comment on above: Performed By: #### Lily NOEL #### Point of Care testing , AST [Catalytic activity/Vol] 35 U/L Normal 13-39 [facility] Comment on above: Performed By: #### Lily NOEL #### Point of Care testing , Bilirubin [Mass/Vol] 0.5 mg/dL Normal 0.3-1.0 [facility] Comment on above: Performed By: #### Lily NOEL #### Point of Care testing , Calcium [Mass/Vol] 8.1 mg/dL Low 8.6-10.3 [facility] Comment on above: Performed By: #### Lily NOEL #### Point of Care testing , Chloride [Moles/Vol] 105 mmol/L Normal 98-107 [facility] Comment on above: Performed By: #### G LULS #### Point of Care testing , CO2 [Moles/Vol] 18.0 mmol/L Low 21.0-31.0 [facility] Comment on above: Performed By: #### G LULS #### Point of Care testing , Creatinine [Mass/Vol] 5.47 mg/dL High 0.70-1.30 [facility] Comment on above: Performed By: #### G LULS #### Point of Care testing , Creatinine Clr Calc Pharmacy 18.29 [facility] Comment on above: Result Comment: PERF ORMED BY: [facility] [address] [place] [address] PATHOLOGIST [employer] SESAR VAUGHN M.D. Performed By: #### G LULS #### Point of Care testing , GFR/1.73 sq M.predicted MDRD (S/P/Bld) [Vol rate/Area] 11.424 mL/min/{1.73_m2} Normal [facility] Comment on above: Performed By: #### G LULS #### Point of Care testing , Globulin (S) [Mass/Vol] 3.5 g/dL Normal [facility] Comment on above: Performed By: #### G LULS #### Point of Care testing , Glucose [Mass/Vol] 117 mg/dL High 74-109 [facility] Comment on above: Result Comment: [facility] Glucose Reference Range is dependent on time and content of last meal. Glucose of more than 200 mg/dL in a nonstressed, ambulatory subject supports the diagnosis of Diabetes Mellitus. ADA recommended reference range Performed By: #### G LULS #### Point of Care testing , Potassium [Moles/Vol] 3.8 mmol/L Normal 3.5-5.1 [facility] Comment on above: Performed By: #### G LULS #### Point of Care testing , Protein [Mass/Vol] 5.7 g/dL Low 6.4-8.9 [facility] Comment on above: Performed By: #### G LULS #### Point of Care testing , Sodium [Moles/Vol] 136 mmol/L Normal 136-145 [facility] Comment on above: Performed By: #### G LULS #### Point of Care testing , Urea nitrogen [Mass/Vol] 114 mg/dL High 7-25 [facility] Comment on above: Performed By: #### G LULS #### Point of Care testing , Creatinine [Mass/volume] in Serum or PlasmaOrdered By: Caleb Farrar on 06-15-2022 Creatinine [Mass/Vol] 5.47 mg/dL 0.70-1.30 [facility] Eosinophils Auto (Bld) [#/Vo l]Ordered By: Caleb Baconomar on 06-15-2022 Eosinophils (Bld) [#/Vol] 0.1 10*3/uL 0.0-0.45 [facility] Eosinophils/100 WBC Auto (Bl d)Ordered By: Caleb Manzanor on 06-15-2022 Eosinophils/100 WBC (Bld) 2.0 % . [facility] Erythrocyte distribution wid th Auto (RBC) [Ratio]Ordered By: Caleb Manzanor on 06-15-2022 Erythrocyte distribution width (RBC) [Ratio] 16.3 % 12.0-14.8 [facility] Globulin Calc (S) [Mass/Vol] Ordered By: Caleb Baconomar on 06-15-2022 Globulin (S) [Mass/Vol] 3.5 g/dL [facility] Glucose Glucometer (BldC) [M ass/Vol]Ordered By: Vikash Pope on 06-15-2022 Glucose [Mass/Vol] 169 mg/dL [facility] Comment on above: Random Glucose Refer ence Range is dependent on time and content of last meal. Glucose of more than 200 mg/dL in a nonstressed, ambulatory subject supports the diagnosis of Diabetes Mellitus. Glucose Poct Glucometerson 0 06-15-2022 Glucose [Mass/Vol] 169 mg/dL Normal [facility] Comment on above: Result Comment: [place] Glucose Reference Range is dependent on time and content of last meal. Glucose of more than 200 mg/dL in a nonstressed, ambulatory subject supports the diagnosis of Diabetes Mellitus. PERFORMED BY: [facility] [address] [place] [address] [employer] SESAR VAUGHN M.D. Performed By: #### C RP #### [facility] [address] Glucose [Mass/Vol] 133 mg/dL Normal [facility] Comment on above: Result Comment: [place] Glucose Reference Range is dependent on time and content of last meal. Glucose of more than 200 mg/dL in a nonstressed, ambulatory subject supports the diagnosis of Diabetes Mellitus. PERFORMED BY: [facility] [address] [place] [address] [employer] SESAR VAUGHN M.D. Performed By: #### G BERT ####Point of Care testing, Glucose [Mass/volume] in Ser um or PlasmaOrdered By: Caleb Farrar on 06-15-2022 Glucose [Mass/Vol] 117 mg/dL 74-109 [facility] Comment on above: ADA recommended refe rence rangeRandom Glucose Reference Range is dependent on time and content of last meal. Glucose of more than 200 mg/dL in a nonstressed, ambulatory subject supports the diagnosis of Diabetes Mellitus. Hematocrit Auto (Bld) [Volum e fraction]Ordered By: Caleb Farrar on 06-15-2022 Hematocrit (Bld) [Volume fraction] 21.3 % 38.8-50.0 [facility] Hemoglobin [Mass/volume] in BloodOrdered By: Caleb Farrar on 06-15-2022 Hemoglobin (Bld) [Mass/Vol] 7.1 g/dL 13.0-17.0 [facility] Laboratory - Chemistry and C hemistry - challengeOrdered By: Caleb Farrar on 06-15-2022 GFR/1.73 sq M.predicted MDRD (S/P/Bld) [Vol rate/Area] 11.424 mL/min/{1.73_m2} [facility] Leukocytes [#/volume] correc annalisa for nucleated erythrocytes in Blood by Automated counOrdered By: Obcheyennedaandrea Baconomar on 06-15-2022 WBC corrected for nucl RBC Auto (Bld) [#/Vol] 6.2 10*3/uL 4.1-10.5 [facility] Lymphocytes Auto (Bld) [#/Vo l]Ordered By: Obcheyennedaandrea Baconomar on 06-15-2022 Lymphocytes (Bld) [#/Vol] 0.4 10*3/uL 1.00-4.8 [facility] Lymphocytes/100 WBC Auto (Bl d)Ordered By: Obcheyennedaandrea Baconomar on 06-15-2022 Lymphocytes/100 WBC (Bld) 7.0 % . [facility] MCH Auto (RBC) [Entitic mass ]Ordered By: Obcheyennedaandrea Baconomar on 06-15-2022 MCH (RBC) [Entitic mass] 27.1 pg 27.5-35.2 [facility] MCHC Auto (RBC) [Mass/Vol]Or dered By: Obcheyennedah Jordiomar on 06-15-2022 MCHC (RBC) [Mass/Vol] 33.4 g/dL 32.5-35.6 [facility] MCV Auto (RBC) [Entitic vol] Ordered By: Obcheyennedah Jordiomar on 06-15-2022 MCV (RBC) [Entitic vol] 81.1 fL 83.5-101 [facility] Monocytes Auto (Bld) [#/Vol] Ordered By: Obcheyennedaandrea Baconomar on 06-15-2022 Monocytes (Bld) [#/Vol] 0.6 10*3/uL 0.0-0.8 [facility] Monocytes/100 WBC Auto (Bld) Ordered By: Obcheyennedah Jordiomar on 06-15-2022 Monocytes/100 WBC (Bld) 9.2 % . [facility] Neutrophils Auto (Bld) [#/Vo l]Ordered By: Obcheyennedaandrea Baconomar on 06-15-2022 Neutrophils (Bld) [#/Vol] 5.0 10*3/uL 1.8-7.7 [facility] Neutrophils/100 WBC Auto (Bl d)Ordered By: Obadelina Daromar on 06-15-2022 Neutrophils/100 WBC (Bld) 81.2 % . [facility] No Panel InformationOrdered By: Caleb Baconomar on 06-15-2022 Pharmacy Creatinine Clearance (Chem 18.29 [facility] Nucleated erythrocytes [Pres ence] in Blood by Automated countOrdered By: Caleb Baconomar on 06-15-2022 Nucleated RBC Auto Ql (Bld) 0.3 /100{WBC} 0-0.5 [facility] Platelet mean volume Auto (B ld) [Entitic vol]Ordered By: Obadelina Baconomar on 06-15-2022 Platelet mean volume (Bld) [Entitic vol] 9.0 fL 6.6-10.1 [facility] Platelets Auto (Bld) [#/Vol] Ordered By: Obadelina Baconomar on 06-15-2022 Platelets (Bld) [#/Vol] 172 10*3/uL 150-450 [facility] Potassium [Moles/volume] in Serum or PlasmaOrdered By: Obadelina Baconomar on 06-15-2022 Potassium [Moles/Vol] 3.8 mmol/L 3.5-5.1 [facility] Protein [Mass/volume] in Ser um or PlasmaOrdered By: Obcheyennedah Jordiomar on 06-15-2022 Protein [Mass/Vol] 5.7 g/dL 6.4-8.9 [facility] RBC Auto (Bld) [#/Vol]Ordere d By: Obadelina Baconomar on 06-15-2022 RBC (Bld) [#/Vol] 2.63 10*6/uL 3.90-5.60 [facility] Serum or plasma albumin/glob ulin mass ratioOrdered By: Obcheyennedah Jordiomar on 06-15-2022 Albumin/Globulin [Mass ratio] 0.6 {ratio} [facility] Serum or plasma anion gap de terminationOrdered By: Obcheyennedah Daromar on 06-15-2022 Anion gap [Moles/Vol] 16.8 mmol/L 6.0-15.0 [facility] Sodium [Moles/volume] in Ser um or PlasmaOrdered By: Obcheyennedaandrea Daromar on 06-15-2022 Sodium [Moles/Vol] 136 mmol/L 136-145 [facility] Urea nitrogen [Mass/volume] in Serum or PlasmaOrdered By: Obcheyennedah Daromar on 06-15-2022 Urea nitrogen [Mass/Vol] 114 mg/dL 7-25 [facility] WBC Auto (Bld) [#/Vol]Ordere d By: Obaydah Daromar on 06-15-2022 WBC (Bld) [#/Vol] 6.2 10*3/uL 4.1-10.5 [facility] Basic Metabolic Panelon 05-21 Anion gap [Moles/Vol] 15.6 mmol/L High 6.0-15.0 [facility] Comment on above: Performed By: #### C RP #### [facility] [address] Calcium [Mass/Vol] 8.3 mg/dL Low 8.6-10.3 [facility] Comment on above: Performed By: #### C RP #### [facility] [address] Chloride [Moles/Vol] 107 mmol/L Normal 98-107 [facility] Comment on above: Performed By: #### C RP #### [facility] [address] [place] [id number] [place] CO2 [Moles/Vol] 18.4 mmol/L Low 21.0-31.0 [facility] Comment on above: Performed By: #### C RP #### [facility] [address] [place] [id number] [place] Creatinine [Mass/Vol] 5.56 mg/dL High 0.70-1.30 [facility] Comment on above: Performed By: #### C RP #### [facility] [address] [place] [id number] [place] Creatinine Clr Calc Pharmacy 18.00 [facility] Comment on above: Result Comment: PERF ORMED BY: [place] [address] [employer] SESAR VAUGHN M.D. Performed By: #### C RP #### [place] [address] [place] GFR/1.73 sq M.predicted MDRD (S/P/Bld) [Vol rate/Area] 11.203 mL/min/{1.73_m2} Normal [facility] Comment on above: Performed By: #### C RP #### [address] Glucose [Mass/Vol] 95 mg/dL Normal 74-109 [facility] Comment on above: Result Comment: [facility] Glucose Reference Range is dependent on time and content of last meal. Glucose of more than 200 mg/dL in a nonstressed, ambulatory subject supports the diagnosis of Diabetes Mellitus. ADA recommended reference range Performed By: #### C RP #### [address] Potassium [Moles/Vol] 4.0 mmol/L Normal 3.5-5.1 [facility] Comment on above: Performed By: #### C RP #### [address] Sodium [Moles/Vol] 137 mmol/L Normal 136-145 [facility] Comment on above: Performed By: #### C RP #### [place] [address] [place] Urea nitrogen [Mass/Vol] 113 mg/dL High 7-25 [facility] Comment on above: Performed By: #### C RP #### [address] abdomen pelvis wo conon 0 06-14-2022 CT abdomen pelvis wo con [facility] Main [place] [address] [place] [address] CT Scan Report Signed Patient: Gopal Yates Jr MR#: [id number] : 1965 Acct:[id number] Age/Sex: 56 / M ADM Date: 06/11/22 Loc: 3T Room: [address] [place] [address] Type: ADM IN Attending Dr: Caleb Farrar MD Copies to: Caleb Farrar MD Ordering Provider: Caleb Farrar MD Date of Service: 06/14/22 CT/CT abdomen pelvis wo con: Rule out hematoma, intraabdominal bleed ([id number]) CT/CT chest wo con: SOB CT CHEST, [...] Tana Perry M.D.06/14/2022 2:13 PM Dictation Location: [place] [address] Transcribed By: [facility] 06/14/22 1413 Dictated By: Tana Perry MD 06/14/22 1358 Signed By: 06/14/22 1413 Normal [facility] Complete Blood Count Auto Di ffon 06-14-2022 Basophils (Bld) [#/Vol] 0.0 10*3/uL Normal 0.0-0.2 [facility] Comment on above: Result Comment: PERF ORMED BY: [address] [address] [employer] SESAR VAUGHN M.D. Performed By: #### C #### [address] Basophils/100 WBC (Bld) 0.6 % Normal . [facility] Comment on above: Performed By: #### C RP #### [facility] [address] [place] [address] [place] Eosinophils (Bld) [#/Vol] 0.1 10*3/uL Normal 0.0-0.45 [facility] Comment on above: Performed By: #### C RP #### [facility] [address] Eosinophils/100 WBC (Bld) 2.4 % Normal . [facility] Comment on above: Performed By: #### C RP #### [facility] [address] Erythrocyte distribution width (RBC) [Ratio] 16.5 % High 12.0-14.8 [facility] Comment on above: Performed By: #### C RP #### [facility] [address] Hematocrit (Bld) [Volume fraction] 21.5 % Low 38.8-50.0 [facility] Comment on above: Performed By: #### C RP #### [facility] [address] Hemoglobin (Bld) [Mass/Vol] 7.1 g/dL Low 13.0-17.0 [facility] Comment on above: Performed By: #### C RP #### [facility] [address] Lymphocytes (Bld) [#/Vol] 0.5 10*3/uL Low 1.00-4.8 [facility] Comment on above: Performed By: #### C RP #### [facility] [address] Lymphocytes/100 WBC (Bld) 7.5 % Normal . [facility] Comment on above: Performed By: #### C RP #### [facility] [address] MCH (RBC) [Entitic mass] 27.0 pg Low 27.5-35.2 [facility] Comment on above: Performed By: #### C RP #### [facility] [address] MCV (RBC) [Entitic vol] 81.5 fL Low 83.5-101 [facility] Comment on above: Performed By: #### C RP #### [address] Mean Corpuscular HGB Conc 33.1 g/dL Normal 32.5-35.6 [facility] Comment on above: Performed By: #### C RP #### [address] Monocytes (Bld) [#/Vol] 0.7 10*3/uL Normal 0.0-0.8 [facility] Comment on above: Performed By: #### C RP #### [address] Monocytes/100 WBC (Bld) 10.6 % Normal . [facility] Comment on above: Performed By: #### C RP #### [address] Neutrophils (Bld) [#/Vol] 4.8 10*3/uL Normal 1.8-7.7 [facility] Comment on above: Performed By: #### C RP #### [address] Neutrophils/100 WBC (Bld) 78.9 % Normal . [facility] Comment on above: Performed By: #### C RP #### [address] NRBC% 0.1 /100{WBC} Normal 0-0.5 [facility] Comment on above: Performed By: #### C RP #### [address] Platelet mean volume (Bld) [Entitic vol] 8.8 fL Normal 6.6-10.1 [facility] Comment on above: Performed By: #### C RP #### [place] [address] [place] Platelets (Bld) [#/Vol] 167 10*3/uL Normal 150-450 [facility] Comment on above: Performed By: #### C RP #### [facility] [address] RBC (Bld) [#/Vol] 2.63 10*6/uL Low 3.90-5.60 [facility] Comment on above: Performed By: #### C RP #### [facility] [address] WBC (Bld) [#/Vol] 6.1 10*3/uL Normal 4.1-10.5 [facility] Comment on above: Performed By: #### C RP #### [address] Fecal occult blood detection by immunochemistryOrdered By: Caleb Farrar on 06-14-2022 Hemoglobin.gastrointest inal Ql (Stl) [facility] Glucose Poct Glucometerson 0 06-14-2022 Glucose [Mass/Vol] 185 mg/dL Normal [facility] Comment on above: Result Comment: [facility] Glucose Reference Range is dependent on time and content of last meal. Glucose of more than 200 mg/dL in a nonstressed, ambulatory subject supports the diagnosis of Diabetes Mellitus. PERFORMED BY: [place] [address] [employer] SESAR VAUGHN M.D. Performed By: #### G LULS #### Point of Care testing , Glucose [Mass/Vol] 180 mg/dL Normal [facility] Comment on above: Result Comment: [facility] Glucose Reference Range is dependent on time and content of last meal. Glucose of more than 200 mg/dL in a nonstressed, ambulatory subject supports the diagnosis of Diabetes Mellitus. PERFORMED BY: [place] [address] [employer] SESAR VAUGHN M.D. Performed By: #### C RP #### [address] Glucose [Mass/Vol] 167 mg/dL Normal [facility] Comment on above: Result Comment: [place] om Glucose Reference Range is dependent on time and content of last meal. Glucose of more than 200 mg/dL in a nonstressed, ambulatory subject supports the diagnosis of Diabetes Mellitus. PERFORMED BY: [facility] [address] [place] [address] PATH[employer] SESAR VAUGHN M.D. Performed By: #### C RP #### [place] [address] [place] Commemt1 Glu2: Cleaned Meter Normal [facility] Comment on above: Result Comment: PERF ORMED BY: [place] [address] PATH[employer] SESAR VAUGHN M.D. Performed By: #### C RP #### [address] Glucose [Mass/Vol] 112 mg/dL Normal [facility] Comment on above: Result Comment: [facility] Glucose Reference Range is dependent on time and content of last meal. Glucose of more than 200 mg/dL in a nonstressed, ambulatory subject supports the diagnosis of Diabetes Mellitus. Performed By: #### C RP #### [place] [id number] [place] Haptoglobinon 06-14-2022 Haptoglobin 332 mg/dL High 44-215 [facility] Comment on above: Result Comment: PERF ORMED BY: [place] [address] [employer] SESAR VAUGHN M.D. Performed By: #### C RP #### [facility] [address] [place] [address] [place] Haptoglobin [Mass/volume] in Serum or PlasmaOrdered By: Caleb Farrar on 06-14-2022 Haptoglobin [Mass/Vol] 332 mg/dL 44-215 [facility] LDH Lactate Dehydrogenaseon 06-14-2022 LDH Lactate Dehydrogenase 220 U/L Normal 140-271 [facility] Comment on above: Result Comment: PERF ORMED BY: [place] [address] [employer] SESAR VAUGHN M.D. Performed By: #### C RP #### [place] [id number] [facility] Lactate dehydrogenase [Enzym atic activity/volume] in Serum or Plasma by Lactate to pyOrdered By: Caleb Farrar on 06-14-2022 LDH Lactate to pyruvate reaction [Catalytic activity/Vol] 220 U/L 140-271 [facility] No Panel InformationOrdered By: Caleb Farrar on 06-14-2022 Bedside Glucose Comment Glu2: cleaned meter [facility] Stool Occult Blood (Immuno)o n 06-14-2022 Stool Occult Blood (Immuno) Occult Blood (Immuno) Negative for Occult Blood by Immunochemical Methodology -------- Reference range = Negative PERFORMED BY: [place] [address] [employer] SESAR VAUGHN M.D. Normal [facility] Comment on above: Performed By: #### C RP #### [address] Complete Blood Count Auto Di ffon 06-13-2022 Basophils (Bld) [#/Vol] 0.0 10*3/uL Normal 0.0-0.2 [facility] Comment on above: Result Comment: PERF ORMED BY: [place] [address] [employer] SES[employer] VAUGHN M.D. Performed By: #### R ENAL, CBC #### [place] [address] [place] Basophils/100 WBC (Bld) 0.6 % Normal . [facility] Comment on above: Performed By: #### R ENAL, CBC #### [facility] [address] Eosinophils (Bld) [#/Vol] 0.1 10*3/uL Normal 0.0-0.45 [facility] Comment on above: Performed By: #### R ENAL, CBC #### [facility] [address] Eosinophils/100 WBC (Bld) 2.1 % Normal . [facility] Comment on above: Performed By: #### R ENAL, CBC #### [address] Erythrocyte distribution width (RBC) [Ratio] 16.9 % High 12.0-14.8 [facility] Comment on above: Performed By: #### R ENAL, CBC #### [address] Hematocrit (Bld) [Volume fraction] 20.6 % Low 38.8-50.0 [facility] Comment on above: Performed By: #### R ENAL, CBC #### [address] Hemoglobin (Bld) [Mass/Vol] 6.8 g/dL Low 13.0-17.0 [facility] Comment on above: Performed By: #### R ENJENIFFER, CBC #### [address] Lymphocytes (Bld) [#/Vol] 0.5 10*3/uL Low 1.00-4.8 [facility] Comment on above: Performed By: #### R ENAL, CBC #### [place] [address] [place] Lymphocytes/100 WBC (Bld) 6.8 % Normal . [facility] Comment on above: Performed By: #### R ENAL, CBC #### [address] MCH (RBC) [Entitic mass] 27.1 pg Low 27.5-35.2 [facility] Comment on above: Performed By: #### R ENAL, CBC #### [facility] [address] MCV (RBC) [Entitic vol] 81.9 fL Low 83.5-101 [facility] Comment on above: Performed By: #### R ENAL, CBC #### [facility] [address] Mean Corpuscular HGB Conc 33.1 g/dL Normal 32.5-35.6 [facility] Comment on above: Performed By: #### R ENAL, CBC #### [facility] [address] [place] [address] [place] Monocytes (Bld) [#/Vol] 0.7 10*3/uL Normal 0.0-0.8 [facility] Comment on above: Performed By: #### R ENAL, CBC #### [address] Monocytes/100 WBC (Bld) 10.4 % Normal . [facility] Comment on above: Performed By: #### R ENAL, CBC #### [place] [address] [place] Neutrophils (Bld) [#/Vol] 5.5 10*3/uL Normal 1.8-7.7 [facility] Comment on above: Performed By: #### R ENAL, CBC #### [place] [address] [place] Neutrophils/100 WBC (Bld) 80.1 % Normal . [facility] Comment on above: Performed By: #### R ENAL, CBC #### [place] [address] [place] NRBC% 0.1 /100{WBC} Normal 0-0.5 [facility] Comment on above: Performed By: #### R ENAL, CBC #### [address] Platelet mean volume (Bld) [Entitic vol] 8.9 fL Normal 6.6-10.1 [facility] Comment on above: Performed By: #### R ENAL, CBC #### [facility] [address] Platelets (Bld) [#/Vol] 173 10*3/uL Normal 150-450 [facility] Comment on above: Performed By: #### R LYNETTE, CBC #### [address] RBC (Bld) [#/Vol] 2.52 10*6/uL Low 3.90-5.60 [facility] Comment on above: Performed By: #### R LYNETTE, CBC #### [address] WBC (Bld) [#/Vol] 6.9 10*3/uL Normal 4.1-10.5 [facility] Comment on above: Performed By: #### R LYNETTE, CBC #### [address] Comprehensive Metabolic Pane stewart 06-13-2022 Albumin [Mass/Vol] 2.3 g/dL Low 3.5-5.7 [facility] Comment on above: Performed By: #### R LYNETTE, CBC #### [address] Albumin/Globulin [Mass ratio] 0.7 {ratio} Normal [facility] Comment on above: Performed By: #### R LYNETTE, CBC #### [facility] [address] [place] [address] ALP [Catalytic activity/Vol] 160 U/L High 34-104 [facility] Comment on above: Performed By: #### R LYNETTE, CBC #### [facility] [address] [place] [address] ALT [Catalytic activity/Vol] 12 U/L Normal 7-52 [facility] Comment on above: Performed By: #### R ENAL, CBC #### [address] Anion gap [Moles/Vol] 15.6 mmol/L High 6.0-15.0 [facility] Comment on above: Performed By: #### R LYNETTE, CBC #### [facility] [address] [place] [phone] [place] AST [Catalytic activity/Vol] 22 U/L Normal 13-39 [facility] Comment on above: Performed By: #### R ENAL, CBC #### [facility] [address] [place] [address] [place] Bilirubin [Mass/Vol] 0.7 mg/dL Normal 0.3-1.0 [facility] Comment on above: Performed By: #### R ENAL, CBC #### [facility] [address] [place] [address] [place] Calcium [Mass/Vol] 8.1 mg/dL Low 8.6-10.3 [facility] Comment on above: Performed By: #### R ENJENIFFER, CBC #### [facility] [address] [place] [address] [place] Chloride [Moles/Vol] 107 mmol/L Normal 98-107 [facility] Comment on above: Performed By: #### R LYNETTE, CBC #### [facility] [address] [place] [id number] [place] CO2 [Moles/Vol] 18.5 mmol/L Low 21.0-31.0 [facility] Comment on above: Performed By: #### R LYNETTE, CBC #### [facility] [address] [place] [phone] [place] Creatinine [Mass/Vol] 5.58 mg/dL High 0.70-1.30 [facility] Comment on above: Performed By: #### R LYNETTE, CBC #### [facility] [address] [place] [phone] [place] Creatinine Clr Calc Pharmacy 17.93 [facility] Comment on above: Performed By: #### R ENJENIFFER, CBC #### [facility] [address] [place] [id number] [place] GFR/1.73 sq M.predicted MDRD (S/P/Bld) [Vol rate/Area] 11.155 mL/min/{1.73_m2} [facility] Comment on above: Performed By: #### R LINSEYAL, CBC #### [facility] [address] Globulin (S) [Mass/Vol] 3.5 g/dL Normal [facility] Comment on above: Performed By: #### R LINSEYAL, CBC #### [facility] [address] Glucose [Mass/Vol] 97 mg/dL Normal 74-109 [facility] Comment on above: Result Comment: [place] Glucose Reference Range is dependent on time and content of last meal. Glucose of more than 200 mg/dL in a nonstressed, ambulatory subject supports the diagnosis of Diabetes Mellitus. ADA recommended reference range Performed By: #### R LYNETTE, CBC #### [facility] [address] Potassium [Moles/Vol] 4.1 mmol/L Normal 3.5-5.1 [facility] Comment on above: Performed By: #### R LYNETTE, CBC #### [facility] [address] Protein [Mass/Vol] 5.8 g/dL Low 6.4-8.9 [facility] Comment on above: Performed By: #### R LYNETTE, CBC #### [address] Sodium [Moles/Vol] 137 mmol/L Normal 136-145 [facility] Comment on above: Performed By: #### R ENJENIFFER, CBC #### [facility] [address] [place] [address] [place] Urea nitrogen [Mass/Vol] 114 mg/dL High -25 [facility] Comment on above: Performed By: #### R ENJENIFFER, CBC #### [facility] [address] [place] [address] [place] Ferritinon 06-13-2022 Ferritin [Mass/Vol] 731.0 ng/mL High 23.9-336.2 [facility] Comment on above: Performed By: #### R ENJENIFFER, CBC #### [place] [id number] [place] Ferritin [Mass/volume] in Se rum or PlasmaOrdered By: Cristobal Butts on 06-13-2022 Ferritin [Mass/Vol] 731.0 ng/mL 23.9-336.2 [facility] Folate [Mass/volume] in Seru m or PlasmaOrdered By: Cristobal Butts on 06-13-2022 Folate [Mass/Vol] 14.5 ng/mL >5.9 [facility] Comment on above: Folate reference ran ge: >5.9 ng/mlThe WHO technical consultation on folate and vitamin [id number] has determined that folate concentrations lessthan 4 ng/ml are considered deficient. Glucose Poct Glucometerson 0 06-13-2022 Commemt1 Glu2: Cleaned Meter Normal [facility] Comment on above: Result Comment: PERF ORMED BY: [place] [address] PATHOLOGIST [employer] SESAR VAUGHN M.D. Performed By: #### C CASE, BMP #### [place] [address] [place] Glucose [Mass/Vol] 150 mg/dL Normal [facility] Comment on above: Result Comment: [place] Glucose Reference Range is dependent on time and content of last meal. Glucose of more than 200 mg/dL in a nonstressed, ambulatory subject supports the diagnosis of Diabetes Mellitus. Performed By: #### C CASE, BMP #### [place] [address] [place] Glucose [Mass/Vol] 139 mg/dL Normal [facility] Comment on above: Result Comment: [place] om Glucose Reference Range is dependent on time and content of last meal. Glucose of more than 200 mg/dL in a nonstressed, ambulatory subject supports the diagnosis of Diabetes Mellitus. PERFORMED BY: [place] [address] PATHOLOGIST [employer] SESAR VAUGHN M.D. Performed By: #### R ENAL, CBC #### [place] [id number] [place] Glucose [Mass/Vol] 198 mg/dL Normal [facility] Comment on above: Result Comment: [place] om Glucose Reference Range is dependent on time and content of last meal. Glucose of more than 200 mg/dL in a nonstressed, ambulatory subject supports the diagnosis of Diabetes Mellitus. PERFORMED BY: [facility] [address] [place] [address] PATHOLOGIST [employer] SESAR VAUGHN M.D. Performed By: #### G LULS ####Point of Care testing, Commemt1 Glu2: Cleaned Meter Normal [facility] Comment on above: Result Comment: PERF ORMED BY: [address] [place] [address] PATHOLOGIST [employer] SESAR VAUGHN M.D. Performed By: #### G LULS #### Point of Care testing , Glucose [Mass/Vol] 112 mg/dL Normal [facility] Comment on above: Result Comment: [place] Glucose Reference Range is dependent on time and content of last meal. Glucose of more than 200 mg/dL in a nonstressed, ambulatory subject supports the diagnosis of Diabetes Mellitus. Performed By: #### G LULS #### Point of Care testing , Iron [Mass/volume] in Serum or PlasmaOrdered By: Cristobal Butts on 06-13-2022 Iron [Mass/Vol] 12 ug/dL 50-212 [facility] Iron and TIBC Profileon 05-21 % Iron Saturation 9.6 % Low 20-50 [facility] Comment on above: Performed By: #### R ENAL, CBC #### [facility] [address] [place] [address] [facility] Iron [Mass/Vol] 12 ug/dL Low 50-212 [facility] Comment on above: Performed By: #### R ENAL, CBC #### [facility] [address] [place] [address] [facility] Total Iron Binding Capacity 125 ug/dL Low 255-450 [facility] Comment on above: Performed By: #### R ENAL, CBC #### [facility] [address] Transferrin [Mass/Vol] 89 mg/dL Low 203-362 [facility] Comment on above: Performed By: #### R ENAL, CBC #### [facility] [address] Iron binding capacity [Mass/ volume] in Serum or PlasmaOrdered By: Cristobal Butts on 06-13-2022 Iron binding capacity [Mass/Vol] 125 ug/dL 255-450 [facility] Iron saturation [Mass Fracti on] in Serum or PlasmaOrdered By: Cristobal Butts on 06-13-2022 Iron saturation [Mass fraction] 9.6 % 20-50 [facility] Transferrin [Mass/volume] in Serum or PlasmaOrdered By: Cristobal Butts on 06-13-2022 Transferrin [Mass/Vol] 89 mg/dL 203-362 [facility] Vancomycin [Mass/volume] in Serum or PlasmaOrdered By: Livia Lu on 06-13-2022 Vancomycin [Mass/Vol] 9.9 ug/mL 5.0-20.0 [facility] Comment on above: Last dose: - Vancomycin,Randomon 06-14-19 Vancomycin,Random 9.9 ug/mL Normal 5.0-20.0 [facility] Comment on above: Order Comment: Date of last dose?: [id number] Time of last dose?: 1999 Result Comment: Last dose: - PERFORMED BY: [facility] [address] [address] PATHOLOGIST [employer] SESAR VAUGHN M.D. Performed By: #### V ANCR ####[facility] [address] Vit. B12/Folate Profileon Cobalamin (Vitamin B12) [Mass/Vol] 353 pg/mL Normal 180-914 [facility] Comment on above: Performed By: #### R ENAL, CBC #### [facility] [address] Folate 14.5 ng/mL Normal >5.9 [facility] Comment on above: Result Comment: [place] reference range: >5.9 ng/ml The WHO technical consultation on folate and vitamin b12 deficiencies has determined that folate concentrations less than 4 ng/ml are considered deficient. PERFORMED BY: [place] [address] PATHOLOGIST [employer] SESAR VAUGHN M.D. Performed By: #### R ENAL, CBC #### [facility] [address] [place] [address] Vitamin B12 ser/plasOrdered By: Cristobal Butts on 06-13-2022 Cobalamin (Vitamin B12) [Mass/Vol] 353 pg/mL 180-914 [facility] C-Reactive Proteinon 023 C-Reactive Protein 13.3 mg/dL High 0.0-0.5 [facility] Comment on above: Order Comment: LINE Result Comment: PERF ORMED BY: [place] [address] PATHOLOGIST [employer] SESAR VAUGHN M.D. Performed By: #### G LULS #### Point of Care testing , Complete Blood Count Auto Di ffon 06-12-2022 Basophils (Bld) [#/Vol] 0.1 10*3/uL Normal 0.0-0.2 [facility] Comment on above: Order Comment: LINE Performed By: #### C MP, ESR, MG, CBC ####[address] Basophils/100 WBC (Bld) 0.9 % Normal . F [facility] Comment on above: Order Comment: LINE Performed By: #### C MP, ESR, MG, CBC ####[place] [id number] [place] [address] [place] Eosinophils (Bld) [#/Vol] 0.2 10*3/uL Normal 0.0-0.45 [facility] Comment on above: Order Comment: LINE Performed By: #### C MP, ESR, MG, CBC ####[place] [address] [place] Eosinophils/100 WBC (Bld) 1.8 % Normal . [facility] Comment on above: Order Comment: LINE Performed By: #### C MP, ESR, MG, CBC ####[address] Erythrocyte distribution width (RBC) [Ratio] 16.6 % High 12.0-14.8 [facility] Comment on above: Order Comment: LINE Performed By: #### C MP, ESR, MG, CBC ####[address] Hematocrit (Bld) [Volume fraction] 22.5 % Low 38.8-50.0 [facility] Comment on above: Order Comment: LINE Performed By: #### C MP, ESR, MG, CBC ####[address] Hemoglobin (Bld) [Mass/Vol] 7.6 g/dL Low 13.0-17.0 [facility] Comment on above: Order Comment: LINE Performed By: #### C MP, ESR, MG, CBC ####[address] Lymphocytes (Bld) [#/Vol] 0.4 10*3/uL Low 1.00-4.8 [facility] Comment on above: Order Comment: LINE Performed By: #### C MP, ESR, MG, CBC ####[address] Lymphocytes/100 WBC (Bld) 4.3 % Normal . [facility] Comment on above: Order Comment: LINE Performed By: #### C MP, ESR, MG, CBC ####[address] MCH (RBC) [Entitic mass] 27.2 pg Low 27.5-35.2 [facility] Comment on above: Order Comment: LINE Performed By: #### C MP, ESR, MG, CBC ####[address] MCV (RBC) [Entitic vol] 80.9 fL Low 83.5-101 [facility] Comment on above: Order Comment: LINE Performed By: #### C MP, ESR, MG, CBC ####[place] [id number] [facility] Mean Corpuscular HGB Conc 33.7 g/dL Normal 32.5-35.6 [facility] Comment on above: Order Comment: LINE Performed By: #### C MP, ESR, MG, CBC ####[place] [id number] [facility] Monocytes (Bld) [#/Vol] 0.7 10*3/uL Normal 0.0-0.8 [facility] Comment on above: Order Comment: LINE Performed By: #### C MP, ESR, MG, CBC ####[place] [id number] [facility] Monocytes/100 WBC (Bld) 8.4 % Normal . F [facility] Comment on above: Order Comment: LINE Performed By: #### C MP, ESR, MG, CBC ####[address] Neutrophils (Bld) [#/Vol] 7.5 10*3/uL Normal 1.8-7.7 [facility] Comment on above: Order Comment: LINE Performed By: #### C MP, ESR, MG, CBC ####[place] [id number] [facility] Neutrophils/100 WBC (Bld) 84.6 % Normal . [facility] Comment on above: Order Comment: LINE Performed By: #### C MP, ESR, MG, CBC ####[place] [id number] [facility] NRBC% 0.0 /100{WBC} Normal 0-0.5 [facility] Comment on above: Order Comment: LINE Performed By: #### C MP, ESR, MG, CBC ####[place] [id number] [facility] Platelet mean volume (Bld) [Entitic vol] 9.0 fL Normal 6.6-10.1 [facility] Comment on above: Order Comment: LINE Performed By: #### C MP, ESR, MG, CBC ####[address] Platelets (Bld) [#/Vol] 190 10*3/uL Signific ant change down 150-450 [facility] Comment on above: Order Comment: LINE Performed By: #### C MP, ESR, MG, CBC ####[address] RBC (Bld) [#/Vol] 2.78 10*6/uL Low 3.90-5.60 [facility] Comment on above: Order Comment: LINE Performed By: #### C MP, ESR, MG, CBC ####[address] WBC (Bld) [#/Vol] 8.9 10*3/uL Normal 4.1-10.5 [facility] Comment on above: Order Comment: LINE Performed By: #### C MP, ESR, MG, CBC ####[address] Comprehensive Metabolic Pane stewart 06-12-2022 Albumin [Mass/Vol] 2.5 g/dL Low 3.5-5.7 [facility] Comment on above: Order Comment: LINE Performed By: #### C MP, ESR, MG, CBC ####[address] Albumin/Globulin [Mass ratio] 0.7 {ratio} Normal [facility] Comment on above: Order Comment: LINE Performed By: #### C MP, ESR, MG, CBC ####[address] ALP [Catalytic activity/Vol] 173 U/L High 34-104 [facility] Comment on above: Order Comment: LINE Performed By: #### C MP, ESR, MG, CBC ####[address] ALT [Catalytic activity/Vol] 13 U/L Normal 7-52 [facility] Comment on above: Order Comment: LINE Performed By: #### C MP, ESR, MG, CBC ####[place] [id number] [facility] Anion gap [Moles/Vol] 16.6 mmol/L High 6.0-15.0 [facility] Comment on above: Order Comment: LINE Performed By: #### C MP, ESR, MG, CBC ####[place] [id number] [facility] AST [Catalytic activity/Vol] 24 U/L Normal 13-39 [facility] Comment on above: Order Comment: LINE Performed By: #### C MP, ESR, MG, CBC ####[place] [id number] [facility] Bilirubin [Mass/Vol] 0.8 mg/dL Normal 0.3-1.0 [facility] Comment on above: Order Comment: LINE Performed By: #### C MP, ESR, MG, CBC ####[place] [id number] [facility] Calcium [Mass/Vol] 8.0 mg/dL Low 8.6-10.3 [facility] Comment on above: Order Comment: LINE Performed By: #### C MP, ESR, MG, CBC ####[place] [id number] [facility] Chloride [Moles/Vol] 105 mmol/L Normal 98-107 [facility] Comment on above: Order Comment: LINE Performed By: #### C MP, ESR, MG, CBC ####[place] [id number] [facility] CO2 [Moles/Vol] 17.7 mmol/L Low 21.0-31.0 [facility] Comment on above: Order Comment: LINE Performed By: #### C MP, ESR, MG, CBC ####[place] [id number] [facility] Creatinine [Mass/Vol] 5.14 mg/dL High 0.70-1.30 [facility] Comment on above: Order Comment: LINE Performed By: #### C MP, ESR, MG, CBC ####[place] [id number] [place] [id number] [facility] Creatinine Clr Calc Pharmacy 19.47 [facility] Comment on above: Order Comment: LINE Performed By: #### C MP, ESR, MG, CBC ####[place] [id number] [facility] GFR/1.73 sq M.predicted MDRD (S/P/Bld) [Vol rate/Area] 12.311 mL/min/{1.73_m2} Normal [facility] Comment on above: Order Comment: LINE Performed By: #### C MP, ESR, MG, CBC ####[address] Globulin (S) [Mass/Vol] 3.8 g/dL Normal [facility] Comment on above: Order Comment: LINE Performed By: #### C MP, ESR, MG, CBC ####[place] [id number] [facility] Glucose [Mass/Vol] 97 mg/dL Normal 74-109 [facility] Comment on above: Order Comment: LINE Result Comment: [place] Glucose Reference Range is dependent on time and content of last meal. Glucose of more than 200 mg/dL in a nonstressed, ambulatory subject supports the diagnosis of Diabetes Mellitus. ADA recommended reference range Performed By: #### C MP, ESR, MG, CBC ####[place] [id number] [facility] Potassium [Moles/Vol] 4.3 mmol/L Normal 3.5-5.1 [facility] Comment on above: Order Comment: LINE Performed By: #### C MP, ESR, MG, CBC ####[place] [id number] [facility] Protein [Mass/Vol] 6.3 g/dL Low 6.4-8.9 [facility] Comment on above: Order Comment: LINE Performed By: #### C MP, ESR, MG, CBC ####[address] [place] [address] [facility] Sodium [Moles/Vol] 135 mmol/L Low 136-145 [facility] Comment on above: Order Comment: LINE Performed By: #### C MP, ESR, MG, CBC ####[facility] [place] [address] [facility] Urea nitrogen [Mass/Vol] 111 mg/dL High 7-25 [facility] Comment on above: Order Comment: LINE Performed By: #### C MP, ESR, MG, CBC ####[facility] [place] [address] [facility] Erythrocyte Sedimentation Ra cindy 06-12-2022 ESR (Bld) [Velocity] 81 mm/h High 0- [facility] Comment on above: Order Comment: LINE Result Comment: PERF ORMED BY: [facility] [address] [id number] PATHOLOGIST [employer] SESAR VAUGHN M.D. Performed By: #### C MP, ESR, MG, CBC ####[place] [id number] [place] [address] [facility] Erythrocyte sedimentation ra te by Photometric methodOrdered By: Caleb Farrar on 06-12-2022 ESR Photometric method (Bld) [Velocity] 81 mm/hr 0 [facility] Glucose Poct Glucometerson 0 06-12-2022 Commemt1 Glu2: Cleaned Meter Normal [facility] Comment on above: Result Comment: PERF ORMED BY: [facility] [address] [place] [address] PATHOLOGIST [employer] SESAR VAGUHN M.D. Performed By: #### G LULS ####Point of Care testing, Glucose [Mass/Vol] 163 mg/dL Normal [facility] Comment on above: Result Comment: [facility] Glucose Reference Range is dependent on time and content of last meal. Glucose of more than 200 mg/dL in a nonstressed, ambulatory subject supports the diagnosis of Diabetes Mellitus. Performed By: #### G LULS ####Point of Care testing, Glucose [Mass/Vol] 142 mg/dL Normal [facility] Comment on above: Result Comment: [place] om Glucose Reference Range is dependent on time and content of last meal. Glucose of more than 200 mg/dL in a nonstressed, ambulatory subject supports the diagnosis of Diabetes Mellitus. PERFORMED BY: [place] [address] PATHOLOGIST [employer] SESAR VAUGHN M.D. Performed By: #### R ENAL, CBC #### [place] [address] [place] Glucose [Mass/Vol] 183 mg/dL Normal [facility] Comment on above: Result Comment: [place] om Glucose Reference Range is dependent on time and content of last meal. Glucose of more than 200 mg/dL in a nonstressed, ambulatory subject supports the diagnosis of Diabetes Mellitus. PERFORMED BY: [place] [address] PATHOLOGIST [employer] SESAR VAUGHN M.D. Performed By: #### R ENAL, CBC #### [address] Glucose [Mass/Vol] 118 mg/dL Normal [facility] Comment on above: Result Comment: [place] om Glucose Reference Range is dependent on time and content of last meal. Glucose of more than 200 mg/dL in a nonstressed, ambulatory subject supports the diagnosis of Diabetes Mellitus. PERFORMED BY: [place] [address] PATHOLOGIST [employer] SESAR VAUGHN M.D. Performed By: #### G LULS #### Point of Care testing , Commemt1 Glu2: Cleaned Meter Normal [facility] Comment on above: Result Comment: PERF ORMED BY: [place] [address] PATHOLOGIST [employer] SESAR VAUGHN M.D. Performed By: #### R ENAL, CBC #### [facility] [address] [place] [address] [place] Glucose [Mass/Vol] 218 mg/dL Normal [facility] Comment on above: Result Comment: [place] Glucose Reference Range is dependent on time and content of last meal. Glucose of more than 200 mg/dL in a nonstressed, ambulatory subject supports the diagnosis of Diabetes Mellitus. Performed By: #### R ENAL, CBC #### [facility] [address] Magnesiumon 06-12-2022 Magnesium [Mass/Vol] 2.0 mg/dL Normal 1.9-2.7 [facility] Comment on above: Order Comment: LINE Result Comment: PERF ORMED BY: [facility] [address] [place] [address] PATHOLOGIST [employer] SESAR VAUGHN M.D. Performed By: #### C MP, ESR, MG, CBC ####[facility] Fhq[address] Magnesium [Mass/volume] in S yulissa or PlasmaOrdered By: Caleb Farrar on 06-12-2022 Magnesium [Mass/Vol] 2.0 mg/dL 1.9-2.7 [facility] Alanine aminotransferase [En zymatic activity/volume] in Serum or PlasmaOrdered By: Livia Lu on 06-11-2022 ALT [Catalytic activity/Vol] 18 U/L 7-52 [facility] Albumin [Mass/volume] in Ser um or Plasma by Bromocresol green (BCG) dye binding methoOrdered By: Livia Lu on 06-11-2022 Albumin BCG dye [Mass/Vol] 2.8 g/dL 3.5-5.7 [facility] Alkaline phosphatase [Enzyma tic activity/volume] in Serum or PlasmaOrdered By: Livia Lu on 06-11-2022 ALP [Catalytic activity/Vol] 200 U/L 34-104 [facility] Aspartate aminotransferase [ Enzymatic activity/volume] in Serum or PlasmaOrdered By: Livia Lu on 06-11-2022 AST [Catalytic activity/Vol] 31 U/L 13-39 [facility] Automated erythrocytes count in urine sediment (number/area)Ordered By: Livia Lu on 06-11-2022 RBC Auto (Urine sed) [#/Area] 3-4 [HPF] 0-4 [facility] Automated leukocytes count i n urine sediment (number/area)Ordered By: Livia Lu on 06-11-2022 WBC Auto (Urine sed) [#/Area] 3-4 [HPF] 0-4 [facility] Bacterial blood cultureOrder ed By: Livia Lu on 06-11-2022 Bacteria identified Cx Nom (Bld) NO GROWTH 5 DAYS [facility] Basophils Auto (Bld) [#/Vol] Ordered By: [facility]ivia [facility] 06-11-2022 Basophils (Bld) [#/Vol] 0.0 10*3/uL 0.0-0.2 [facility] Basophils/100 WBC Auto (Bld) Ordered By: [facility] Basophils/100 WBC (Bld) 0.5 % . F [facility] Bilirubin Test strip Ql (U)O rdered By: Livia Lu on 06-11-2022 Bilirubin Ql (U) Negative Negative [facility] Bilirubin.total [Mass/volume ] in Serum or PlasmaOrdered By: Livia Lu on 06-11-2022 Bilirubin [Mass/Vol] 0.6 mg/dL 0.3-1.0 [facility] Blood Cultureon 06-11-2022 Bacteria identified Cx Nom (Bld) NO GROWTH 5 DAYS PERFORMED BY: [place] [address] PATHOLOGIST [employer] SESAR VAUGHN M.D. Normal [facility] Comment on above: Performed By: #### C BCNO, BMP #### [address] COVID CepheidOrdered By: Sandra Lu on 06-11-2022 SARS-CoV-2 (COVID-19) Ab IA Ql Negative Negative [facility] Comment on above: This is a duplicate Cepheid Xpert Xpress CoV-2/Flu/RSV Plus RNA by RT-PCR result to be used for statistical tracking purpose only. SARS-CoV-2 (COVID-19) RNA HUMBLE+probe Ql (Unsp spec) [facility] COVID-19 / Flu A/B / RSV PCR [...] or Cepheid Disclaimer revoked sooner. PERFORMED BY: [facility] PATHOLOGIST [employer] SESAR VAUGHN M.D. Normal [facility] Comment on above: Performed By: #### R ENJENIFFER, CBC #### [facility] [address] [place], [place] [id number] [facility] Calcium [Mass/volume] in Ser um or PlasmaOrdered By: Livia Lu on 06-11-2022 Calcium [Mass/Vol] 8.4 mg/dL 8.6-10.3 [facility] Carbon dioxide, total [Moles /volume] in Serum or PlasmaOrdered By: Livia Lu on 06-11-2022 CO2 [Moles/Vol] 18.3 mmol/L 21.0-31.0 [facility] Cepheid COVID PCR Negativeon 06-11-2022 SARS-CoV-2 (COVID-19) RNA HUMBLE+probe Ql (Unsp spec) Negative Normal Negative [facility] Comment on above: Result Comment: This is a duplicate Cepheid Xpert Xpress CoV-2/Flu/RSV Plus RNA by RT-PCR result to be used for statistical tracking purpose only. PERFORMED BY: [address] [place] [address] PATHOLOGIST [employer] SESAR VAUGHN M.D. Performed By: #### R ENJENIFFER, CBC #### [facility] [address] [place] [address] [facility] Chloride [Moles/volume] in S yulissa or PlasmaOrdered By: Livia Lu on 06-11-2022 Chloride [Moles/Vol] 106 mmol/L 98-107 [facility] Color Auto (U)Ordered By: Co cassie Lu on 06-11-2022 Color (U) Yellow Yellow [facility] Complete Blood Count Auto Di ffon 06-11-2022 Basophils (Bld) [#/Vol] 0.0 10*3/uL Normal 0.0-0.2 [facility] Comment on above: Result Comment: PERF ORMED BY: [address] [place] [address] PATHOLOGIST [employer] SESAR VAUGHN M.D. Performed By: #### G LULS #### Point of Care testing , Basophils/100 WBC (Bld) 0.5 % Normal . F [facility] Comment on above: Performed By: #### G LULS #### Point of Care testing , Eosinophils (Bld) [#/Vol] 0.2 10*3/uL Normal 0.0-0.45 [facility] Comment on above: Performed By: #### G LULS #### Point of Care testing , Eosinophils/100 WBC (Bld) 2.0 % Normal . [facility] Comment on above: Performed By: #### G LULS #### Point of Care testing , Erythrocyte distribution width (RBC) [Ratio] 16.4 % High 12.0-14.8 [facility] Comment on above: Performed By: #### G LULS #### Point of Care testing , Hematocrit (Bld) [Volume fraction] 23.3 % Low 38.8-50.0 [facility] Comment on above: Performed By: #### G LULS #### Point of Care testing , Hemoglobin (Bld) [Mass/Vol] 7.7 g/dL Low 13.0-17.0 [facility] Comment on above: Performed By: #### G LULS #### Point of Care testing , Lymphocytes (Bld) [#/Vol] 0.3 10*3/uL Low 1.00-4.8 [facility] Comment on above: Performed By: #### G LULS #### Point of Care testing , Lymphocytes/100 WBC (Bld) 3.2 % Normal . [facility] Comment on above: Performed By: #### G LULS #### Point of Care testing , MCH (RBC) [Entitic mass] 27.1 pg Low 27.5-35.2 [facility] Comment on above: Performed By: #### G LULS #### Point of Care testing , MCV (RBC) [Entitic vol] 81.5 fL Low 83.5-101 [facility] Comment on above: Performed By: #### G LULS #### Point of Care testing , Mean Corpuscular HGB Conc 33.2 g/dL Normal 32.5-35.6 [facility] Comment on above: Performed By: #### G HOLGERLS #### Point of Care testing , Monocytes (Bld) [#/Vol] 0.7 10*3/uL Normal 0.0-0.8 [facility] Comment on above: Performed By: #### G HOLGERLS #### Point of Care testing , Monocytes/100 WBC (Bld) 17.28 % Normal 0.00-20.00 [facility] Comment on above: Performed By: #### G HOLGERLS #### Point of Care testing , Monocytes/100 WBC (Bld) 7.2 % Normal . [facility] Comment on above: Performed By: #### G BERT #### Point of Care testing , Neutrophils (Bld) [#/Vol] 8.9 10*3/uL High 1.8-7.7 [facility] Comment on above: Performed By: #### G BERT #### Point of Care testing , Neutrophils/100 WBC (Bld) 87.1 % Normal . [facility] Comment on above: Performed By: #### Lily NOEL #### Point of Care testing , NRBC% 0.0 /100{WBC} Normal 0-0.5 [facility] Comment on above: Performed By: #### G BERT #### Point of Care testing , Platelet mean volume (Bld) [Entitic vol] 8.8 fL Normal 6.6-10.1 [facility] Comment on above: Performed By: #### Lily NOEL #### Point of Care testing , Platelets (Bld) [#/Vol] 244 10*3/uL Normal 150-450 [facility] Comment on above: Performed By: #### G BERT #### Point of Care testing , RBC (Bld) [#/Vol] 2.86 10*6/uL Low 3.90-5.60 [facility] Comment on above: Performed By: #### Lily NOEL #### Point of Care testing , WBC (Bld) [#/Vol] 10.2 10*3/uL Normal 4.1-10.5 [facility] Comment on above: Performed By: #### G BERT #### Point of Care testing , Comprehensive Metabolic Pane stewart 06-11-2022 Albumin [Mass/Vol] 2.8 g/dL Low 3.5-5.7 [facility] Comment on above: Performed By: #### C RP #### [address] Albumin/Globulin [Mass ratio] 0.7 {ratio} Normal [facility] Comment on above: Performed By: #### C RP #### [address] ALP [Catalytic activity/Vol] 200 U/L High 34-104 [facility] Comment on above: Performed By: #### C RP #### [address] ALT [Catalytic activity/Vol] 18 U/L Normal 7-52 [facility] Comment on above: Performed By: #### C RP #### [address] Anion gap [Moles/Vol] 17.1 mmol/L High 6.0-15.0 [facility] Comment on above: Performed By: #### C RP #### [address] AST [Catalytic activity/Vol] 31 U/L Normal 13-39 [facility] Comment on above: Performed By: #### C RP #### [address] Bilirubin [Mass/Vol] 0.6 mg/dL Normal 0.3-1.0 [facility] Comment on above: Performed By: #### C RP #### [address] Calcium [Mass/Vol] 8.4 mg/dL Low 8.6-10.3 [facility] Comment on above: Performed By: #### C RP #### [facility] [address] Chloride [Moles/Vol] 106 mmol/L Normal 98-107 [facility] Comment on above: Performed By: #### C RP #### [facility] [address] CO2 [Moles/Vol] 18.3 mmol/L Low 21.0-31.0 [facility] Comment on above: Performed By: #### C RP #### [facility] [address] Creatinine [Mass/Vol] 5.45 mg/dL High 0.70-1.30 [facility] Comment on above: Performed By: #### C RP #### [address] Creatinine Clr Calc Pharmacy 18.36 Normal [facility] Comment on above: Result Comment: PERF ORMED BY: [place] [address] PATHOLOGIST [employer] SESAR VAUGHN M.D. Performed By: #### C RP #### [address] GFR/1.73 sq M.predicted MDRD (S/P/Bld) [Vol rate/Area] 11.475 mL/min/{1.73_m2} Normal [facility] Comment on above: Performed By: #### C RP #### [address] Globulin (S) [Mass/Vol] 4.1 g/dL Normal [facility] Comment on above: Performed By: #### C RP #### [address] Glucose [Mass/Vol] 62 mg/dL Low 74-109 [facility] Comment on above: Result Comment: [place] Glucose Reference Range is dependent on time and content of last meal. Glucose of more than 200 mg/dL in a nonstressed, ambulatory subject supports the diagnosis of Diabetes Mellitus. ADA recommended reference range Performed By: #### C RP #### [address] Potassium [Moles/Vol] 4.4 mmol/L Normal 3.5-5.1 [facility] Comment on above: Performed By: #### C RP #### [address] Protein [Mass/Vol] 6.9 g/dL Normal 6.4-8.9 [facility] Comment on above: Performed By: #### C RP #### [address] Sodium [Moles/Vol] 137 mmol/L Normal 136-145 [facility] Comment on above: Performed By: #### C RP #### [address] Urea nitrogen [Mass/Vol] 111 mg/dL High 7-25 [facility] Comment on above: Performed By: #### C RP #### [address] Creatinine [Mass/volume] in Serum or PlasmaOrdered By: Livia Lu on 06-11-2022 Creatinine [Mass/Vol] 5.45 mg/dL 0.70-1.30 [facility] Dipstick and Microscopicon 0 06-11-2022 Appearance (U) Clear Normal Clear [facility] Comment on above: Order Comment: Name Collection Type:: Clean-Voided Midstream Performed By: #### R ENAL, CBC #### [place] [address] [place] Bacteria,Urine None Seen Normal None Seen [facility] Comment on above: Order Comment: Name Collection Type:: Clean-Voided Midstream Performed By: #### R ENAL, CBC #### [place] [address] [place] Bilirubin,Urine Negative Normal Negative [facility] Comment on above: Order Comment: Name Collection Type:: Clean-Voided Midstream Performed By: #### R ENAL, CBC #### [address] [place] [address] [place] Color (U) Yellow Normal Yellow [facility] Comment on above: Order Comment: Name Collection Type:: Clean-Voided Midstream Performed By: #### R ENAL, CBC #### [facility] [address] [place] [id number] [place] Glucose Ql (U) Normal Normal Normal [facility] Comment on above: Order Comment: Name Collection Type:: Clean-Voided Midstream Performed By: #### R ENAL, CBC #### [facility] [address] [place] [address] [place] Hyaline Casts,Urine 0-8 Normal 0-8 [facility] Comment on above: Order Comment: Name Collection Type:: Clean-Voided Midstream Result Comment: PERF ORMED BY: [place] [address] PATHOLOGIST [employer] SESAR VAUGHN M.D. Performed By: #### R ENAL, CBC #### [place] [id number] [place] Ketones Ql (U) Negative Normal Negative [facility] Comment on above: Order Comment: Name Collection Type:: Clean-Voided Midstream Performed By: #### R ENAL, CBC #### [place] [address] [place] Leukocyte esterase Test strip Ql (U) Negative Normal Negative [facility] Comment on above: Order Comment: Name Collection Type:: Clean-Voided Midstream Performed By: #### R ENAL, CBC #### [facility] [address] [place] [address] [place] Nitrite,Urine Negative Normal Negative [facility] Comment on above: Order Comment: Name Collection Type:: Clean-Voided Midstream Performed By: #### R ENAL, CBC #### [facility] [address] [place] [address] [place] Occult Blood,Urine Negative Normal Negative [facility] Comment on above: Order Comment: Name Collection Type:: Clean-Voided Midstream Result Comment: PERF ORMED BY: [place] [id number] PATHOLOGIST [employer] SESAR VAUGHN M.D. Performed By: #### R ENAL, CBC #### [address] pH (U) 5.5 [pH] Normal 5.0-9.0 [facility] Comment on above: Order Comment: Name Collection Type:: Clean-Voided Midstream Performed By: #### R ENAL, CBC #### [address] Protein (U) [Mass/Vol] 300 mg/dL High Negative [facility] Comment on above: Order Comment: Name Collection Type:: Clean-Voided Midstream Performed By: #### R ENAL, CBC #### [address] RBC,Urine 3-4 Normal 0-4 [facility] Comment on above: Order Comment: Name Collection Type:: Clean-Voided Midstream Performed By: #### R ENAL, CBC #### [address] Specificy [place],Urine 1.014 Normal 1.001-1.030 [facility] Comment on above: Order Comment: Name Collection Type:: Clean-Voided Midstream Performed By: #### R ENAL, CBC #### [address] Squamous Epithelial Cell,Urine 1-2 Normal 0-2 [facility] Comment on above: Order Comment: Name Collection Type:: Clean-Voided Midstream Performed By: #### R ENAL, CBC #### [place] [address] [place] Urobilinogen,Urine Normal Normal Normal [facility] Comment on above: Order Comment: Name Collection Type:: Clean-Voided Midstream Performed By: #### R ENAL, CBC #### [place] [address] [place] WBC,Urine 3-4 Normal 0-4 [facility] Comment on above: Order Comment: Name Collection Type:: Clean-Voided Midstream Performed By: #### R ENAL, CBC #### [facility] [address] Eosinophils Auto (Bld) [#/Vo l]Ordered By: Livia Lu on 06-11-2022 Eosinophils (Bld) [#/Vol] 0.2 10*3/uL 0.0-0.45 [facility] Eosinophils/100 WBC Auto (Bl d)Ordered By: Livia Lu on 06-11-2022 Eosinophils/100 WBC (Bld) 2.0 % . [facility] Erythrocyte distribution wid th Auto (RBC) [Ratio]Ordered By: Livia Lu on 06-11-2022 Erythrocyte distribution width (RBC) [Ratio] 16.4 % 12.0-14.8 [facility] Globulin Calc (S) [Mass/Vol] Ordered By: Livia Lu on 06-11-2022 Globulin (S) [Mass/Vol] 4.1 g/dL [facility] Glucose Glucometer (BldC) [M ass/Vol]Ordered By: Livia Lu on 06-11-2022 Glucose [Mass/Vol] 83 mg/dL [facility] Comment on above: Random Glucose Refer ence Range is dependent on time and content of last meal. Glucose of more than 200 mg/dL in a nonstressed, ambulatory subject supports the diagnosis of Diabetes Mellitus. Glucose Poct Glucometerson 0 06-11-2022 Commemt1 Glu2: Cleaned Meter Normal [facility] Comment on above: Result Comment: PERF ORMED BY: [place] [address] PATHOLOGIST [employer] SESAR VAUGHN M.D. Performed By: #### R ENAL, CBC #### [facility] [address] Glucose [Mass/Vol] 83 mg/dL Normal [facility] Comment on above: Result Comment: [place] Glucose Reference Range is dependent on time and content of last meal. Glucose of more than 200 mg/dL in a nonstressed, ambulatory subject supports the diagnosis of Diabetes Mellitus. Performed By: #### R ENAL, CBC #### [facility] [address] Glucose [Mass/volume] in Ser um or PlasmaOrdered By: Livia Lu on 06-11-2022 Glucose [Mass/Vol] 62 mg/dL 74-109 [facility] Comment on above: ADA recommended refe rence rangeRandom Glucose Reference Range is dependent on time and content of last meal. Glucose of more than 200 mg/dL in a nonstressed, ambulatory subject supports the diagnosis of Diabetes Mellitus. Hematocrit Auto (Bld) [Volum e fraction]Ordered By: Livia Lu on 06-11-2022 Hematocrit (Bld) [Volume fraction] 23.3 % 38.8-50.0 [facility] Hemoglobin [Mass/volume] in BloodOrdered By: Livia Lu on 06-11-2022 Hemoglobin (Bld) [Mass/Vol] 7.7 g/dL 13.0-17.0 [facility] Ketones Auto test strip (U) [Mass/Vol]Ordered By: Livia Lu on 06-11-2022 Ketones (U) [Mass/Vol] Negative Negative [facility] - Chemistry and C hemistry - challengeOrdered By: Livia Lu on 06-11-2022 GFR/1.73 sq M.predicted MDRD (S/P/Bld) [Vol rate/Area] 11.475 mL/min/{1.73_m2} [facility] - UrinalysisOrder ed By: Livia Lu on 06-11-2022 Hyaline casts LM Ql (Urine sed) 0-8 [LPF] 0-8 [facility] Lactate [Moles/volume] in Se rum or PlasmaOrdered By: Livia Lu on 06-11-2022 Lactate [Moles/Vol] 1.1 mmol/L 0.5-2.2 [facility] Lactic Acidon 06-11-2022 Lactate [Moles/Vol] 1.1 mmol/L Normal 0.5-2.2 [facility] Comment on above: Result Comment: PERF ORMED BY: [facility] [place] [address] PATHOLOGIST [employer] SESAR VAUGHN M.D. Performed By: #### G BERT #### Point of Care testing , LeukoReduced RBCon LeukoReduced RBC TRANSFUSED 06/13/22 1200 Normal [facility] Leukocytes [#/volume] correc annalisa for nucleated erythrocytes in Blood by Automated counOrdered By: Livia Lu on 06-11-2022 WBC corrected for nucl RBC Auto (Bld) [#/Vol] 10.2 10*3/uL 4.1-10.5 [facility] Lymphocytes Auto (Bld) [#/Vo l]Ordered By: Livia Lu on 06-11-2022 Lymphocytes (Bld) [#/Vol] 0.3 10*3/uL 1.00-4.8 [facility] Lymphocytes/100 WBC Auto (Bl d)Ordered By: Livia Lu on 06-11-2022 Lymphocytes/100 WBC (Bld) 3.2 % . [facility] MCH Auto (RBC) [Entitic mass ]Ordered By: Livia Lu on 06-11-2022 MCH (RBC) [Entitic mass] 27.1 pg 27.5-35.2 [facility] MCHC Auto (RBC) [Mass/Vol]Or dered By: Livia Lu on 06-11-2022 MCHC (RBC) [Mass/Vol] 33.2 g/dL 32.5-35.6 [facility] MCV Auto (RBC) [Entitic vol] Ordered By: Livia Lu on 06-11-2022 MCV (RBC) [Entitic vol] 81.5 fL 83.5-101 [facility] Monocyte distribution width [Entitic volume] in Blood by AutomatedOrdered By: Livia Lu on 06-11-2022 Monocyte distribution width Auto (Bld) [Entitic vol] 17.28 % 0.00-20.00 [facility] Monocytes Auto (Bld) [#/Vol] Ordered By: Livia Lu on 06-11-2022 Monocytes (Bld) [#/Vol] 0.7 10*3/uL 0.0-0.8 [facility] Monocytes/100 WBC Auto (Bld) Ordered By: Livia Lu on 06-11-2022 Monocytes/100 WBC (Bld) 7.2 % . [facility] Neutrophils Auto (Bld) [#/Vo l]Ordered By: Livia Lu on 06-11-2022 Neutrophils (Bld) [#/Vol] 8.9 10*3/uL 1.8-7.7 [facility] Neutrophils/100 WBC Auto (Bl d)Ordered By: Livia Lu on 06-11-2022 Neutrophils/100 WBC (Bld) 87.1 % . [facility] Nitrite Test strip Ql (U)Ord ered By: Livia Lu on 06-11-2022 Nitrite Ql (U) Negative Negative [facility] No Panel InformationOrdered By: Livia Lu on 06-11-2022 Bedside Glucose Comment Glu2: cleaned meter [facility] Creatinine Clearance (Chem 18.36 [facility] Nucleated erythrocytes [Pres ence] in Blood by Automated countOrdered By: Livia Lu on 06-11-2022 Nucleated RBC Auto Ql (Bld) 0.0 /100{WBC} 0-0.5 [facility] Platelet mean volume Auto (B ld) [Entitic vol]Ordered By: Livia Lu on 06-11-2022 Platelet mean volume (Bld) [Entitic vol] 8.8 fL 6.6-10.1 [facility] Platelets Auto (Bld) [#/Vol] Ordered By: Livia Lu on 06-11-2022 Platelets (Bld) [#/Vol] 244 10*3/uL 150-450 [facility] Potassium [Moles/volume] in Serum or PlasmaOrdered By: Livia Lu on 06-11-2022 Potassium [Moles/Vol] 4.4 mmol/L 3.5-5.1 [facility] Protein Auto test strip (U) [Mass/Vol]Ordered By: Livia Lu on 06-11-2022 Protein (U) [Mass/Vol] 300 mg/dL Negative [facility] Protein [Mass/volume] in Ser um or PlasmaOrdered By: Livia Lu on 06-11-2022 Protein [Mass/Vol] 6.9 g/dL 6.4-8.9 [facility] RBC Auto (Bld) [#/Vol]Ordere d By: Livia Lu on 06-11-2022 RBC (Bld) [#/Vol] 2.86 10*6/uL 3.90-5.60 [facility] Serum or plasma albumin/glob ulin mass ratioOrdered By: Livia Lu on 06-11-2022 Albumin/Globulin [Mass ratio] 0.7 {ratio} [facility] Serum or plasma anion gap de terminationOrdered By: Livia Lu on 06-11-2022 Anion gap [Moles/Vol] 17.1 mmol/L 6.0-15.0 [facility] Sodium [Moles/volume] in Ser um or PlasmaOrdered By: Livia Lu on 06-11-2022 Sodium [Moles/Vol] 137 mmol/L 136-145 [facility] Specific gravity Auto test s trip (U) [Rel density]Ordered By: Livia Lu on 06-11-2022 Specific gravity (U) [Rel density] 1.014 1.001-1.030 [facility] Squamous epithelial cells de tection in urine sediment by light microscopyOrdered By: Livia Lu on 06-11-2022 Epithelial cells.squamous LM Ql (Urine sed) 1-2 [HPF] 0-2 [facility] Type and Screenon 06-11-2022 ABO and Rh group Nom (Bld) Blood group A Rh(D) positive Normal [facility] Comment on above: Order Comment: Trans fuse now? Y Number of units to transfuse now? 1 Transfuse now? Y Number of units to transfuse now? 1 Urea nitrogen [Mass/volume] in Serum or PlasmaOrdered By: Livia Lu on 06-11-2022 Urea nitrogen [Mass/Vol] 111 mg/dL 7-25 [facility] Urine bacteria detection by automated methodOrdered By: Livia Lu on 06-11-2022 Bacteria Auto Ql (U) None seen None Seen [facility] Urine clarity by refractomet ry automatedOrdered By: Livia Lu on 06-11-2022 Clarity Refractometry automated (U) Clear Clear [facility] Urine glucose measurement by automated test strip (mass/volume)Ordered By: Livia Lu on 06-11-2022 Glucose Auto test strip (U) [Mass/Vol] Normal mg/dL Normal [facility] Urine hemoglobin detection b y automated test stripOrdered By: Livia Lu on 06-11-2022 Hemoglobin Auto test strip Ql (U) Negative Negative [facility] Urine leukocyte esterase det ection by automated test stripOrdered By: Livia Lu on 06-11-2022 Leukocyte esterase Auto test strip Ql (U) Negative Negative [facility] Urobilinogen Auto test strip (U) [Mass/Vol]Ordered By: Livia Lu on 06-11-2022 Urobilinogen (U) [Mass/Vol] Normal mg/dL Normal [facility] WBC Auto (Bld) [#/Vol]Ordere d By: Livia Lu on 06-11-2022 WBC (Bld) [#/Vol] 10.2 10*3/uL 4.1-10.5 [facility] XR foot RT min 3V*on 023 XR foot RT min 3V* [facility] [place] [address] XRay Report Signed Patient: Gopal Yates Jr MR#: [id number] : 1965 Acct:[id number] Age/Sex: 56 / M ADM Date: 06/11/22 Loc: ER Room: Type: [facility] ER Attending Dr: Copies to: Livia Lu APRN Ordering Provider: Livia Lu APRN Date of Service: 06/11/22 XR/XR chest 1V portable: Fever ([id number]) XR/XR foot RT min 3V*: Fever CLINICAL [...] Tana Perry M.D.06/11/2022 5:14 PM Dictation Location: [place] [address] Transcribed By: [facility] 06/11/221713 Dictated By: Tana Perry MD 06/11/22 1705 Signed By: 06/11/22 171 Normal [facility] pH Auto test strip (U)Ordere d By: Livia Lu on 06-11-2022 pH (U) 5.5 [pH] 5.0-9.0 [facility] Aerobic cultureOrdered By: Hortencia Griggs on 06-10-2022 Bacteria identified Aer cx Nom (Unsp spec) 2 Days [facility] Superficial Wound Cultureon 06-10-2022 Superficial Wound Culture Light Normal Skin Efren 2 Days PERFORMED BY: [facility] [address] [place] [address] PATHOLOGIST [employer] SESAR VAUGHN M.D. Normal [facility] Comment on above: Performed By: #### C BCNO, BMP #### [facility] [address] [place] [address] [place] C reactive protein [Mass/vol ume] in Serum or PlasmaOrdered By: Ashutosh Thomas on 06-05-2022 CRP [Mass/Vol] 11.7 mg/dL 0.0-0.4 [facility] C-Reactive Proteinon 023 C-Reactive Protein 11.7 mg/dL High 0.0-0.4 [facility] Comment on above: Result Comment: PERF ORMED BY: [place] [address] PATHOLOGIST [employer] SESAR VAUGHN M.D. Performed By: #### C RP #### [facility] [address] [place] [address] Hepatitis B Core Antibodyon 06-05-2022 Hepatitis B Core Antibody Negative Normal Negative [facility] Comment on above: Result Comment: Perf ormed at: - [facility] [address] [id number] Manager Grant: Rob Loza PhD, Phone: [phone] Performed By: #### R ENAL, CBC #### [facility] [address] [place] [address] [place] Hepatitis B Surface Antibody on 06-05-2022 Hepatitis B Surface Antibody Non-Reactive Normal . [facility] Comment on above: Result Comment: Non Reactive: Inconsistent with immunity, less than 10 mIU/mL Reactive: Consistent with immunity, greater than 9.9 mIU/mL Performed By: #### R ENAL, CBC #### [facility] [address] [place] [address] Hepatitis B Surface Antigeno n 06-05-2022 HBsAg Screen Negative Normal Negative [facility] Comment on above: Result Comment: PERF ORMED BY: [place] [address] PATHOLOGIST [employer] SESAR VAUGHN M.D. Performed By: #### R ENAL, CBC #### [facility] [address] Hepatitis B virus surface Ag [Presence] in Serum or Plasma by ImmunoassayOrdered By: Yvonne Barboza on 06-05-2022 HBV surface Ag IA Ql Negative Negative [facility] No Panel InformationOrdered By: Yvonne Barboza on 06-05-2022 Hepatitis B Core Total Antibody Negative Negative [facility] Comment on above: Performed at: [address] [id number] Director: Rob Loza PhD, Phone: [phone] Serum hepatitis B virus surf carlee antibody detectionOrdered By: Yvonne Barboza on 06-05-2022 HBV surface Ab Ql (S) Non-Reactive . [facility] Comment on above: Non Reactive: Incons istent with immunity, less than 10 mIU/mL Reactive: Consistent with immunity, greater than 9.9 mIU/mL Arterial blood standard base excess determination by calculationOrdered By: Sohan Kellogg on 05-28-2022 Base excess standard Calc (BldA) [Moles/Vol] -5 mmol/L -2-3 [facility] Basic Metabolic Panelon Anion gap [Moles/Vol] 14.8 mmol/L Normal 6.0-15.0 [facility] Comment on above: Performed By: #### C CASE, BMP #### [facility] [address] [place] [address] [place] Calcium [Mass/Vol] 8.3 mg/dL Low 8.6-10.3 [facility] Comment on above: Performed By: #### C BCSHANTANU, BMP #### [facility] [address] [place] [id number] [place] Chloride [Moles/Vol] 107 mmol/L Normal 98-107 [facility] Comment on above: Performed By: #### C BCNO, BMP #### [facility] [address] [place] [address] [place] CO2 [Moles/Vol] 20.2 mmol/L Low 21.0-31.0 [facility] Comment on above: Performed By: #### C CASE, BMP #### [facility] [address] [place] [address] [place] Creatinine [Mass/Vol] 4.50 mg/dL High 0.70-1.30 [facility] Comment on above: Performed By: #### C CASE, BMP #### [facility] [address] [place] [address] [place] Creatinine Clr Calc Pharmacy 22.08 [facility] Comment on above: Result Comment: PERF ORMED BY: [facility] [address] [place] [address] PATHOLOGIST [employer] SESAR VAUGHN M.D. Performed By: #### C CASE, BMP #### [facility] [address] [place] [address] [place] GFR/1.73 sq M.predicted MDRD (S/P/Bld) [Vol rate/Area] 14.440 mL/min/{1.73_m2} [facility] Comment on above: Performed By: #### C CASE, BMP #### [facility] [address] [place] [address] [place] Glucose [Mass/Vol] 119 mg/dL High 74-109 [facility] Comment on above: Result Comment: [place] Glucose Reference Range is dependent on time and content of last meal. Glucose of more than 200 mg/dL in a nonstressed, ambulatory subject supports the diagnosis of Diabetes Mellitus. ADA recommended reference range Performed By: #### C CASE, BMP #### [facility] [address] [place] [address] [place] Potassium [Moles/Vol] 4.0 mmol/L Normal 3.5-5.1 [facility] Comment on above: Performed By: #### C CASE, BMP #### [facility] [address] [place] [address] [place] Sodium [Moles/Vol] 138 mmol/L Normal 136-145 [facility] Comment on above: Performed By: #### C CASE, BMP #### [facility] [address] [place] [address] [place] Urea nitrogen [Mass/Vol] 71 mg/dL High 7-25 [facility] Comment on above: Performed By: #### C BCNO, BMP #### [facility] [address] Blood carbon dioxide, total measurement by calculation (moles/volume)Ordered By: Sohan Kellogg on 05-28-2022 CO2 Calc (Bld) [Moles/Vol] 20 mmol/L 23-[address] [facility] [address] biopsyOrdered By: Sohan Kellogg on 05-28-2022 Hematocrit (Bld) [Volume fraction] 28.0 % 38.0-51.0 [facility] Calcium [Mass/volume] in Ser um or PlasmaOrdered By: Gopal Ochoa on 05-28-2022 Calcium [Mass/Vol] 8.3 mg/dL 8.6-10.3 [facility] Carbon dioxide, total [Moles /volume] in Serum or PlasmaOrdered By: Gopal Ochoa on 05-28-2022 CO2 [Moles/Vol] 20.2 mmol/L 21.0-31.0 [facility] Chloride [Moles/volume] in S yulissa or PlasmaOrdered By: Gopal Ochoa on 05-28-2022 Chloride [Moles/Vol] 107 mmol/L 98-107 [facility] Creatinine [Mass/volume] in Serum or PlasmaOrdered By: Gopal Ochoa on 05-28-2022 Creatinine [Mass/Vol] 4.50 mg/dL 0.70-1.30 [facility] Erythrocyte distribution wid th Auto (RBC) [Ratio]Ordered By: Gopal Ochoa on 05-28-2022 Erythrocyte distribution width (RBC) [Ratio] 15.5 % 12.0-14.8 [facility] Glucose Glucometer (BldC) [M ass/Vol]Ordered By: Sohan Kellogg on 05-28-2022 Glucose [Mass/Vol] 122 mg/dL [facility] Comment on above: Random Glucose Refer ence Range is dependent on time and content of last meal. Glucose of more than 200 mg/dL in a nonstressed, ambulatory subject supports the diagnosis of Diabetes Mellitus. Glucose [Mass/Vol] 116 mg/dL 70-105 [facility] Glucose Poct Glucometerson 0 05-28-2022 Glucose [Mass/Vol] 122 mg/dL Normal [facility] Comment on above: Result Comment: [place] om Glucose Reference Range is dependent on time and content of last meal. Glucose of more than 200 mg/dL in a nonstressed, ambulatory subject supports the diagnosis of Diabetes Mellitus. PERFORMED BY: [place] [address] [employer] SESAR VUAGHN M.D. Performed By: #### R ENAL, CBC #### [facility] [address] [place] [address] Glucose [Mass/Vol] 120 mg/dL Normal [facility] Comment on above: Result Comment: [place] om Glucose Reference Range is dependent on time and content of last meal. Glucose of more than 200 mg/dL in a nonstressed, ambulatory subject supports the diagnosis of Diabetes Mellitus. PERFORMED BY: [place] [address] PATH[employer] SESAR VAUGHN M.D. Performed By: #### C BCNO, BMP #### [facility] [address] [place], [place] [id number] [facility] Glucose [Mass/volume] in Ser um or PlasmaOrdered By: Gopal Ochoa on 05-28-2022 Glucose [Mass/Vol] 119 mg/dL 74-109 [facility] Comment on above: ADA recommended refe rence rangeRandom Glucose Reference Range is dependent on time and content of last meal. Glucose of more than 200 mg/dL in a nonstressed, ambulatory subject supports the diagnosis of Diabetes Mellitus. Hematocrit Auto (Bld) [Volum e fraction]Ordered By: Gopal Ochoa on 05-28-2022 Hematocrit (Bld) [Volume fraction] 28.8 % 38.8-50.0 [facility] Hemoglobin Calc (Bld) [Mass/ Vol]Ordered By: Sohan Kellogg on 05-28-2022 Hemoglobin (Bld) [Mass/Vol] 9.5 g/dL 12.0-17.0 [facility] Hemoglobin [Mass/volume] in BloodOrdered By: Gopal Ochoa on 05-28-2022 Hemoglobin (Bld) [Mass/Vol] 9.5 g/dL 13.0-17.0 [facility] Hemogram CBC Without Diffon 05-28-2022 Erythrocyte distribution width (RBC) [Ratio] 15.5 % High 12.0-14.8 [facility] Comment on above: Performed By: #### C CASE, BMP #### [address] Hematocrit (Bld) [Volume fraction] 28.8 % Low 38.8-50.0 [facility] Comment on above: Performed By: #### C CASE, ESTHER #### [address] Hemoglobin (Bld) [Mass/Vol] 9.5 g/dL Low 13.0-17.0 [facility] Comment on above: Performed By: #### C CASE, BMP #### [address] MCH (RBC) [Entitic mass] 27.1 pg Low 27.5-35.2 [facility] Comment on above: Performed By: #### C CASE, BMP #### [address] MCV (RBC) [Entitic vol] 81.6 fL Low 83.5-101 [facility] Comment on above: Performed By: #### C CASE, BMP #### [address] Mean Corpuscular HGB Conc 33.2 g/dL Normal 32.5-35.6 [facility] Comment on above: Performed By: #### C CASE, BMP #### [address] Platelet mean volume (Bld) [Entitic vol] 8.5 fL Normal 6.6-10.1 [facility] Comment on above: Result Comment: PERF ORMED BY: [place] [address] PATH[employer] SESAR VAUGHN M.D. Performed By: #### C BCNO, BMP #### [address] Platelets (Bld) [#/Vol] 302 10*3/uL Normal 150-450 [facility] Comment on above: Performed By: #### C BCNO, BMP #### [address] RBC (Bld) [#/Vol] 3.52 10*6/uL Low 3.90-5.60 [facility] Comment on above: Performed By: #### C BCNO, BMP #### [address] WBC (Bld) [#/Vol] 6.9 10*3/uL Normal 4.1-10.5 [facility] Comment on above: Performed By: #### C BCNO, BMP #### [address] ISTAT ABGon 05-28-2022 CO2 [Moles/Vol] 20 mmol/L Low 23-29 [facility] Comment on above: Performed By: #### R ENAL, CBC #### [address] Glucose [Mass/Vol] 116 mg/dL High 70-105 [facility] Comment on above: Result Comment: PERF ORMED BY: [place] [address] PATH[employer] SESAR VAUGHN M.D. Performed By: #### R ENAL, CBC #### [address] HCO3 (Bld) [Moles/Vol] 19.4 mmol/L Low 22.0-28.0 [facility] Comment on above: Performed By: #### R ENAL, CBC #### [address] Hematocrit (Bld) [Volume fraction] 28.0 % Low 38.0-51.0 [facility] Comment on above: Performed By: #### R ENAL, CBC #### [facility] [address] Hemoglobin (Bld) [Mass/Vol] 9.5 g/dL Low 12.0-17.0 [facility] Comment on above: Performed By: #### R ENAL, CBC #### [facility] [address] [place] [address] [place] ISTAT Base Excess -5 mmol/L Low -2 TO 3 [facility] Comment on above: Performed By: #### R ENAL, CBC #### [facility] [address] ISTAT Ionized Calcium 1.22 mol/L Normal 1.12-1.32 [facility] Comment on above: Performed By: #### R ENAL, CBC #### [facility] [address] [place] [address] [place] ISTAT PCO2 27.8 mm[Hg] Low 35-51 [facility] Comment on above: Performed By: #### R LYNETTE, CBC #### [facility] [address] [place] [address] [place] ISTAT Ph 7.451 High 7.31-7.45 [facility] Comment on above: Performed By: #### R ENAL, CBC #### [facility] [address] [place] [address] [place] ISTAT PO2 43 mm[Hg] Low 80-105 [facility] Comment on above: Performed By: #### R ENAL, CBC #### [facility] [address] Oxygen saturation in Blood 82 % Low 95-98 [facility] Comment on above: Result Comment: Refe rence ranges reflect baseline specimens only Performed By: #### R ENAL, CBC #### [facility] [address] Potassium [Moles/Vol] 4.0 mmol/L Normal 3.5-4.9 [facility] Comment on above: Performed By: #### R ENAL, CBC #### [facility] [address] [place] [address] [place] Sodium [Moles/Vol] 141 mmol/L Normal 138-146 [facility] Comment on above: Performed By: #### R ENAL, CBC #### [facility] [address] Laboratory - Chemistry and C hemistry - challengeOrdered By: Gopal Ochoa on 05-28-2022 GFR/1.73 sq M.predicted MDRD (S/P/Bld) [Vol rate/Area] 14.440 mL/min/{1.73_m2} [facility] Leukocytes [#/volume] correc annalisa for nucleated erythrocytes in Blood by Automated counOrdered By: Gopal Ochoa on 05-28-2022 WBC corrected for nucl RBC Auto (Bld) [#/Vol] 6.9 10*3/uL 4.1-10.5 [facility] MCH Auto (RBC) [Entitic mass ]Ordered By: Gopal Ochoa on 05-28-2022 MCH (RBC) [Entitic mass] 27.1 pg 27.5-35.2 [facility] MCHC Auto (RBC) [Mass/Vol]Or dered By: Gopal Ochoa on 05-28-2022 MCHC (RBC) [Mass/Vol] 33.2 g/dL 32.5-35.6 [facility] MCV Auto (RBC) [Entitic vol] Ordered By: Gopal Ochoa on 05-28-2022 MCV (RBC) [Entitic vol] 81.6 fL 83.5-101 [facility] Monocyte %Ordered By: Sohan Kellogg on 05-28-2022 Monocyte % 27.8 mm[Hg] 35-51 [facility] Monocyte % 43 mm[Hg] 80-105 [facility] No Panel InformationOrdered By: Gopal Ochoa on 05-28-2022 Pharmacy Creatinine Clearance (Chem 22.08 [facility] Platelet mean volume Auto (B ld) [Entitic vol]Ordered By: Gopal Ochoa on 05-28-2022 Platelet mean volume (Bld) [Entitic vol] 8.5 fL 6.6-10.1 [facility] Platelets Auto (Bld) [#/Vol] Ordered By: Gopal Ochoa on 05-28-2022 Platelets (Bld) [#/Vol] 302 10*3/uL 150-450 [facility] Potassium (Bld) [Moles/Vol]O rdered By: Sohan Kellogg on 05-28-2022 Potassium [Moles/Vol] 4.0 mmol/L 3.5-4.9 [facility] Potassium [Moles/volume] in Serum or PlasmaOrdered By: Gopal Ochoa on 05-28-2022 Potassium [Moles/Vol] 4.0 mmol/L 3.5-5.1 [facility] RBC Auto (Bld) [#/Vol]Ordere d By: Gopal Ochoa on 05-28-2022 RBC (Bld) [#/Vol] 3.52 10*6/uL 3.90-5.60 [facility] Serum or plasma anion gap de terminationOrdered By: Gopal Ochoa on 05-28-2022 Anion gap [Moles/Vol] 14.8 mmol/L 6.0-15.0 [facility] Sodium (Bld) [Moles/Vol]Orde red By: Sohan Kellogg on 05-28-2022 Sodium [Moles/Vol] 141 mmol/L 138-146 [facility] Sodium [Moles/volume] in Ser um or PlasmaOrdered By: Gopal Ochoa on 05-28-2022 Sodium [Moles/Vol] 138 mmol/L 136-145 [facility] Urea nitrogen [Mass/volume] in Serum or PlasmaOrdered By: Gopal Ochoa on 05-28-2022 Urea nitrogen [Mass/Vol] 71 mg/dL 7-25 [facility] Whole blood bicarbonate bertha urementOrdered By: Sohan Kellogg on 05-28-2022 HCO3 (Bld) [Moles/Vol] 19.4 mmol/L 22.0-28.0 [facility] Whole blood ionized calcium measurement (moles/volume)Ordered By: Sohan Kellogg on 05-28-2022 Calcium.ionized (Bld) [Moles/Vol] 1220 mmol/L 1.12-1.32 [facility] Whole blood oxygen saturatio n measurementOrdered By: Sohan Kellogg on 05-28-2022 Oxygen saturation in Blood 82 % 95-98 [facility] Comment on above: Reference ranges ref lect baseline specimens only Whole blood pHOrdered By: Jeniffer Kellogg on 05-28-2022 pH (Bld) 7.451 Units 7.31-7.45 [facility] C reactive protein [Mass/vol ume] in Serum or PlasmaOrdered By: Eddy Griggs on 05-27-2022 CRP [Mass/Vol] 6.3 mg/dL 0.0-0.4 [facility] C-Reactive Proteinon 023 C-Reactive Protein 6.3 mg/dL High 0.0-0.4 [facility] Comment on above: Result Comment: PERF ORMED BY: [facility] [address] [place] [id number] [employer] SESAR VAUGHN M.D. Performed By: #### C ####[facility] [place] [address] [facility] Albumin [Mass/volume] in Ser um or PlasmaOrdered By: Salvador Alonso on 05-25-2022 Albumin [Mass/Vol] 1.7 g/dL 3.2-5.5 [facility] Basophils Auto (Bld) [#/Vol] Ordered By: Salvador Alonso on 05-25-2022 Basophils (Bld) [#/Vol] 0.1 10*3/uL 0.0-0.2 [facility] Basophils/100 WBC Auto (Bld) Ordered By: Salvador Alonso on 05-25-2022 Basophils/100 WBC (Bld) 1.0 % . [facility] Calcium [Mass/volume] in Ser um or PlasmaOrdered By: Salvador Alonso on 05-25-2022 Calcium [Mass/Vol] 7.8 mg/dL 8.2-10.2 [facility] Carbon dioxide, total [Moles /volume] in Serum or PlasmaOrdered By: Salvador Alonso on 05-25-2022 CO2 [Moles/Vol] 21.0 mmol/L 22.0-30.0 [facility] Chloride [Moles/volume] in S yulissa or PlasmaOrdered By: Salvador Alonso on 05-25-2022 Chloride [Moles/Vol] 104 mmol/L 95-114 [facility] Complete Blood Count Auto Di ffon 05-25-2022 Basophils (Bld) [#/Vol] 0.1 10*3/uL Normal 0.0-0.2 [facility] Comment on above: Result Comment: PERF ORMED BY: [facility] [address] [place] [address] PATH[employer] SESAR VAUGHN M.D. Performed By: #### G LULS #### Point of Care testing , Basophils/100 WBC (Bld) 1.0 % Normal . [facility] Comment on above: Performed By: #### G LULS #### Point of Care testing , Eosinophils (Bld) [#/Vol] 0.3 10*3/uL Normal 0.0-0.45 [facility] Comment on above: Performed By: #### G LULS #### Point of Care testing , Eosinophils/100 WBC (Bld) 3.4 % Normal . [facility] Comment on above: Performed By: #### G LULS #### Point of Care testing , Erythrocyte distribution width (RBC) [Ratio] 15.0 % High 12.0-14.8 [facility] Comment on above: Performed By: #### G LULS #### Point of Care testing , Hematocrit (Bld) [Volume fraction] 23.7 % Low 38.8-50.0 [facility] Comment on above: Performed By: #### G LULS #### Point of Care testing , Hemoglobin (Bld) [Mass/Vol] 7.9 g/dL Low 13.0-17.0 [facility] Comment on above: Performed By: #### G LULS #### Point of Care testing , Lymphocytes (Bld) [#/Vol] 0.7 10*3/uL Low 1.00-4.8 [facility] Comment on above: Performed By: #### G HOLGERLS #### Point of Care testing , Lymphocytes/100 WBC (Bld) 9.2 % Normal . [facility] Comment on above: Performed By: #### G LULS #### Point of Care testing , MCH (RBC) [Entitic mass] 27.4 pg Low 27.5-35.2 [facility] Comment on above: Performed By: #### G LULS #### Point of Care testing , MCV (RBC) [Entitic vol] 81.7 fL Low 83.5-101 [facility] Comment on above: Performed By: #### G LULS #### Point of Care testing , Mean Corpuscular HGB Conc 33.6 g/dL Normal 32.5-35.6 [facility] Comment on above: Performed By: #### G LULS #### Point of Care testing , Monocytes (Bld) [#/Vol] 0.8 10*3/uL Normal 0.0-0.8 [facility] Comment on above: Performed By: #### G LULS #### Point of Care testing , Monocytes/100 WBC (Bld) 10.5 % Normal . [facility] Comment on above: Performed By: #### G LULS #### Point of Care testing , Neutrophils (Bld) [#/Vol] 5.8 10*3/uL Normal 1.8-7.7 [facility] Comment on above: Performed By: #### G LULS #### Point of Care testing , Neutrophils/100 WBC (Bld) 75.9 % Normal . [facility] Comment on above: Performed By: #### G LULS #### Point of Care testing , NRBC% 0.0 /100{WBC} Normal 0-0.5 [facility] Comment on above: Performed By: #### G LULS #### Point of Care testing , Platelet mean volume (Bld) [Entitic vol] 8.6 fL Normal 6.6-10.1 [facility] Comment on above: Performed By: #### G LULS #### Point of Care testing , Platelets (Bld) [#/Vol] 191 10*3/uL Normal 150-450 [facility] Comment on above: Performed By: #### G LULS #### Point of Care testing , RBC (Bld) [#/Vol] 2.90 10*6/uL Low 3.90-5.60 [facility] Comment on above: Performed By: #### G HOLGERLS #### Point of Care testing , WBC (Bld) [#/Vol] 7.7 10*3/uL Normal 4.1-10.5 [facility] Comment on above: Performed By: #### G HOLGERLS #### Point of Care testing , Creatinine and Glomerular fi ltration rate.predicted panel (S/P/Bld)Ordered By: Salvador Alonso on 05-25-2022 Creatinine [Mass/Vol] 4.55 mg/dL 0.64-1.27 [facility] Eosinophils Auto (Bld) [#/Vo l]Ordered By: Salvador Alonso on 05-25-2022 Eosinophils (Bld) [#/Vol] 0.3 10*3/uL 0.0-0.45 [facility] Eosinophils/100 WBC Auto (Bl d)Ordered By: Salvador Alonso on 05-25-2022 Eosinophils/100 WBC (Bld) 3.4 % . [facility] Erythrocyte distribution wid th Auto (RBC) [Ratio]Ordered By: Salvador Alonso on 05-25-2022 Erythrocyte distribution width (RBC) [Ratio] 15.0 % 12.0-14.8 [facility] Estimated glomerular filtrat ion rate (GFR) non- AmericanOrdered By: Salvador Alonso on 05-25-2022 GFR/1.73 sq M.predicted among non-blacks MDRD (S/P/Bld) [Vol rate/Area] 13 mL/Min [facility] Glucose Glucometer (BldC) [M ass/Vol]Ordered By: Scotty Kahn on 05-25-2022 Glucose [Mass/Vol] 151 mg/dL [facility] Comment on above: Random Glucose Refer ence Range is dependent on time and content of last meal. Glucose of more than 200 mg/dL in a nonstressed, ambulatory subject supports the diagnosis of Diabetes Mellitus. Glucose Poct Glucometerson 0 05-25-2022 Commemt1 Glu2: Cleaned Meter [facility] Comment on above: Result Comment: PERF ORMED BY: [place] [address] PATH[employer] SESAR VAUGHN M.D. Performed By: #### G LULS #### Point of Care testing , Glucose [Mass/Vol] 151 mg/dL Normal [facility] Comment on above: Result Comment: [place] om Glucose Reference Range is dependent on time and content of last meal. Glucose of more than 200 mg/dL in a nonstressed, ambulatory subject supports the diagnosis of Diabetes Mellitus. Performed By: #### G LULS #### Point of Care testing , Commemt1 Glu2: Cleaned Meter [facility] Comment on above: Result Comment: PERF ORMED BY: [place] [address] PATH[employer] SESAR VAUGHN M.D. Performed By: #### C BCNO, BMP #### [facility] [address] [place] [address] [place] Glucose [Mass/Vol] 101 mg/dL Normal [facility] Comment on above: Result Comment: [place] om Glucose Reference Range is dependent on time and content of last meal. Glucose of more than 200 mg/dL in a nonstressed, ambulatory subject supports the diagnosis of Diabetes Mellitus. Performed By: #### C BCNO, BMP #### [facility] [address] [place] [address] [place] Glucose [Mass/volume] in Ser um or PlasmaOrdered By: Salvador Alonso on 05-25-2022 Glucose [Mass/Vol] 94 mg/dL 70-100 [facility] Comment on above: ADA recommended refe rence rangeRandom Glucose Reference Range is dependent on time and content of last meal. Glucose of more than 200 mg/dL in a nonstressed, ambulatory subject supports the diagnosis of Diabetes Mellitus. Hematocrit Auto (Bld) [Volum e fraction]Ordered By: Salvador Alonso on 05-25-2022 Hematocrit (Bld) [Volume fraction] 23.7 % 38.8-50.0 [facility] Hemoglobin [Mass/volume] in BloodOrdered By: Salvador Alonso on 05-25-2022 Hemoglobin (Bld) [Mass/Vol] 7.9 g/dL 13.0-17.0 [facility] Leukocytes [#/volume] correc annalisa for nucleated erythrocytes in Blood by Automated counOrdered By: Salvador Alonso on 05-25-2022 WBC corrected for nucl RBC Auto (Bld) [#/Vol] 7.7 10*3/uL 4.1-10.5 [facility] Lymphocytes Auto (Bld) [#/Vo l]Ordered By: Salvador Alonso on 05-25-2022 Lymphocytes (Bld) [#/Vol] 0.7 10*3/uL 1.00-4.8 [facility] Lymphocytes/100 WBC Auto (Bl d)Ordered By: Salvador Alonso on 05-25-2022 Lymphocytes/100 WBC (Bld) 9.2 % . [facility] MCH Auto (RBC) [Entitic mass ]Ordered By: Slavador Alonso on 05-25-2022 MCH (RBC) [Entitic mass] 27.4 pg 27.5-35.2 [facility] MCHC Auto (RBC) [Mass/Vol]Or dered By: Salvador Alonso on 05-25-2022 MCHC (RBC) [Mass/Vol] 33.6 g/dL 32.5-35.6 [facility] MCV Auto (RBC) [Entitic vol] Ordered By: Salvador Alonso on 05-25-2022 MCV (RBC) [Entitic vol] 81.7 fL 83.5-101 [facility] Monocytes Auto (Bld) [#/Vol] Ordered By: Salvador Alonso on 05-25-2022 Monocytes (Bld) [#/Vol] 0.8 10*3/uL 0.0-0.8 [facility] Monocytes/100 WBC Auto (Bld) Ordered By: Salvador Alonso on 05-25-2022 Monocytes/100 WBC (Bld) 10.5 % . [facility] Neutrophils Auto (Bld) [#/Vo l]Ordered By: Salvador Alonso on 05-25-2022 Neutrophils (Bld) [#/Vol] 5.8 10*3/uL 1.8-7.7 [facility] Neutrophils/100 WBC Auto (Bl d)Ordered By: Salvador Alonso on 05-25-2022 Neutrophils/100 WBC (Bld) 75.9 % . [facility] No Panel InformationOrdered By: Scotty Kahn on 05-25-2022 Bedside Glucose Comment Glu2: cleaned meter [facility] No Panel InformationOrdered By: Salvador Alonso on 05-25-2022 Estimated GFR () 16 mL/Min [facility] Comment on above: GFR estimated refere nce range: According to KDOQI guidelines, <60 ml/min/1.73m2 is sufficient to diagnose a patient with chronic kidney disease. Pharmacy Creatinine Clearance (Chem 21.99 [facility] Nucleated erythrocytes [Pres ence] in Blood by Automated countOrdered By: Salvador Alonso on 05-25-2022 Nucleated RBC Auto Ql (Bld) 0.0 /100{WBC} 0-0.5 [facility] Phosphate [Mass/volume] in S yulissa or PlasmaOrdered By: Salvador Alonso on 05-25-2022 Phosphate [Mass/Vol] 4.1 mg/dL 2.5-4.6 [facility] Platelet mean volume Auto (B ld) [Entitic vol]Ordered By: Salvador Alonso on 05-25-2022 Platelet mean volume (Bld) [Entitic vol] 8.6 fL 6.6-10.1 [facility] Platelets Auto (Bld) [#/Vol] Ordered By: Salvador Alonso on 05-25-2022 Platelets (Bld) [#/Vol] 191 10*3/uL 150-450 [facility] Potassium [Moles/volume] in Serum or PlasmaOrdered By: Salvador Alonso on 05-25-2022 Potassium [Moles/Vol] 4.2 mmol/L 3.5-5.1 [facility] RBC Auto (Bld) [#/Vol]Ordere d By: Salvador Alonso on 05-25-2022 RBC (Bld) [#/Vol] 2.90 10*6/uL 3.90-5.60 [facility] Renal Function Panelon 05-25 Albumin [Mass/Vol] 1.7 g/dL Low 3.2-5.5 [facility] Comment on above: Performed By: #### G LULS #### Point of Care testing , Anion gap [Moles/Vol] 13.2 mmol/L Normal 6.0-15.0 [facility] Comment on above: Performed By: #### G LULS #### Point of Care testing , Calcium [Mass/Vol] 7.8 mg/dL Low 8.2-10.2 [facility] Comment on above: Performed By: #### G LULS #### Point of Care testing , Chloride [Moles/Vol] 104 mmol/L Normal 95-114 [facility] Comment on above: Performed By: #### G LULS #### Point of Care testing , CO2 [Moles/Vol] 21.0 mmol/L Low 22.0-30.0 [facility] Comment on above: Performed By: #### G LULS #### Point of Care testing , Creatinine [Mass/Vol] 4.55 mg/dL High 0.64-1.27 [facility] Comment on above: Performed By: #### G LULS #### Point of Care testing , Creatinine Clr Calc Pharmacy 21.99 [facility] Comment on above: Result Comment: PERF ORMED BY: [facility] [address] [place] [address] PATHOLOGIST [employer] SESAR VAUGHN M.D. Performed By: #### G LULS #### Point of Care testing , Estimated GFR ( Wendy 16 [facility] Comment on above: Result Comment: GFR estimated reference range: According to KDOQI guidelines, <60 ml/min/1.73m2 is sufficient to diagnose a patient with chronic kidney disease. Performed By: #### G LULS #### Point of Care testing , Estimated GFR (Non- Am 13 Normal [facility] Comment on above: Performed By: #### G LULS #### Point of Care testing , Glucose [Mass/Vol] 94 mg/dL Normal 70-100 [facility] Comment on above: Result Comment: [place] Glucose Reference Range is dependent on time and content of last meal. Glucose of more than 200 mg/dL in a nonstressed, ambulatory subject supports the diagnosis of Diabetes Mellitus. ADA recommended reference range Performed By: #### G LULS #### Point of Care testing , Phosphate [Mass/Vol] 4.1 mg/dL Normal 2.5-4.6 [facility] Comment on above: Performed By: #### G LULS #### Point of Care testing , Potassium [Moles/Vol] 4.2 mmol/L Normal 3.5-5.1 [facility] Comment on above: Performed By: #### G LULS #### Point of Care testing , Sodium [Moles/Vol] 134 mmol/L Low 136-146 [facility] Comment on above: Performed By: #### G LULS #### Point of Care testing , Urea nitrogen [Mass/Vol] 68 mg/dL High 12-12 [facility] Comment on above: Performed By: #### G LULS #### Point of Care testing , Serum or plasma anion gap de terminationOrdered By: Salvador Alonso on 05-25-2022 Anion gap [Moles/Vol] 13.2 mmol/L 6.0-15.0 [facility] Sodium [Moles/volume] in Ser um or PlasmaOrdered By: Salvador Alonso on 05-25-2022 Sodium [Moles/Vol] 134 mmol/L 136-146 [facility] Urea nitrogen [Mass/volume] in Serum or PlasmaOrdered By: Salvador Alonso on 05-25-2022 Urea nitrogen [Mass/Vol] 68 mg/dL 12-12 [facility] WBC Auto (Bld) [#/Vol]Ordere d By: Salvador Alonso on 05-25-2022 WBC (Bld) [#/Vol] 7.7 10*3/uL 4.1-10.5 [facility] Complete Blood Count Auto Di ffon 05-24-2022 Basophils (Bld) [#/Vol] 0.1 10*3/uL Normal 0.0-0.2 [facility] Comment on above: Result Comment: PERF ORMED BY: [place] [address] PATHOLOGIST [employer] SESAR VAUGHN M.D. Performed By: #### C CASE, BMP #### [address] Basophils/100 WBC (Bld) 1.4 % Normal . [facility] Comment on above: Performed By: #### C CASE, BMP #### [address] Eosinophils (Bld) [#/Vol] 0.2 10*3/uL Normal 0.0-0.45 [facility] Comment on above: Performed By: #### C CASE, BMP #### [address] Eosinophils/100 WBC (Bld) 2.7 % Normal . [facility] Comment on above: Performed By: #### C CASE, BMP #### [address] Erythrocyte distribution width (RBC) [Ratio] 15.0 % High 12.0-14.8 [facility] Comment on above: Performed By: #### C CASE, BMP #### [address] Hematocrit (Bld) [Volume fraction] 24.2 % Low 38.8-50.0 [facility] Comment on above: Performed By: #### C CASE, BMP #### [place] [address] [place] Hemoglobin (Bld) [Mass/Vol] 8.0 g/dL Low 13.0-17.0 [facility] Comment on above: Performed By: #### C CASE, BMP #### [facility] [address] Lymphocytes (Bld) [#/Vol] 0.8 10*3/uL Low 1.00-4.8 [facility] Comment on above: Performed By: #### C CASE, BMP #### [facility] [address] Lymphocytes/100 WBC (Bld) 11.4 % Normal . [facility] Comment on above: Performed By: #### C CASE, BMP #### [address] MCH (RBC) [Entitic mass] 27.2 pg Low 27.5-35.2 [facility] Comment on above: Performed By: #### C CASE, BMP #### [address] MCV (RBC) [Entitic vol] 82.0 fL Low 83.5-101 F [facility] Comment on above: Performed By: #### C CASE, BMP #### [address] Mean Corpuscular HGB Conc 33.1 g/dL Normal 32.5-35.6 [facility] Comment on above: Performed By: #### C CASE, BMP #### [address] Monocytes (Bld) [#/Vol] 0.7 10*3/uL Normal 0.0-0.8 [facility] Comment on above: Performed By: #### C CASE, BMP #### [address] Monocytes/100 WBC (Bld) 9.3 % Normal . [facility] Comment on above: Performed By: #### C CASE, BMP #### [address] Neutrophils (Bld) [#/Vol] 5.4 10*3/uL Normal 1.8-7.7 [facility] Comment on above: Performed By: #### Hortencia WILLOUGHBY, BMP #### [facility] [address] Neutrophils/100 WBC (Bld) 75.2 % Normal . [facility] Comment on above: Performed By: #### C CASE, BMP #### [facility] [address] NRBC% 0.1 /100{WBC} Normal 0-0.5 [facility] Comment on above: Performed By: #### C CASE, BMP #### [address] Platelet mean volume (Bld) [Entitic vol] 8.3 fL Normal 6.6-10.1 [facility] Comment on above: Performed By: #### Hortencia WILLOUGHBY, BMP #### [address] Platelets (Bld) [#/Vol] 170 10*3/uL Normal 150-450 [facility] Comment on above: Performed By: #### Hortencia WILLOUGHBY, BMP #### [address] RBC (Bld) [#/Vol] 2.95 10*6/uL Low 3.90-5.60 [facility] Comment on above: Performed By: #### Hortencia WILLOUGHBY, BMP #### [address] WBC (Bld) [#/Vol] 7.1 10*3/uL Normal 4.1-10.5 [facility] Comment on above: Performed By: #### Hortencia WILLOUGHBY, BMP #### [address] Glucose Poct Glucometerson 0 05-24-2022 Commemt1 Glu2: Cleaned Meter Normal [facility] Comment on above: Result Comment: PERF ORMED BY: [facility] [address] [place] [address] PATHOLOGIST [employer] SESAR VAUGHN M.D. Performed By: #### G LULS ####Point of Care testing, Glucose [Mass/Vol] 150 mg/dL Normal [facility] Comment on above: Result Comment: [place] om Glucose Reference Range is dependent on time and content of last meal. Glucose of more than 200 mg/dL in a nonstressed, ambulatory subject supports the diagnosis of Diabetes Mellitus. Performed By: #### G LULS ####Point of Care testing, Glucose [Mass/Vol] 131 mg/dL Normal [facility] Comment on above: Result Comment: [place] om Glucose Reference Range is dependent on time and content of last meal. Glucose of more than 200 mg/dL in a nonstressed, ambulatory subject supports the diagnosis of Diabetes Mellitus. PERFORMED BY: [address] [place] [address] PATHOLOGIST [employer] SESAR VAUGHN M.D. Performed By: #### G LULS ####Point of Care testing, Glucose [Mass/Vol] 147 mg/dL Normal [facility] Comment on above: Result Comment: [place] om Glucose Reference Range is dependent on time and content of last meal. Glucose of more than 200 mg/dL in a nonstressed, ambulatory subject supports the diagnosis of Diabetes Mellitus. PERFORMED BY: [address] [place] [address] PATHOLOGIST [employer] SESAR VAUGHN M.D. Performed By: #### G LULS #### Point of Care testing , Glucose [Mass/Vol] 101 mg/dL Normal [facility] Comment on above: Result Comment: [place] om Glucose Reference Range is dependent on time and content of last meal. Glucose of more than 200 mg/dL in a nonstressed, ambulatory subject supports the diagnosis of Diabetes Mellitus. PERFORMED BY: [address] [place] [address] PATHOLOGIST [employer] SESAR VAUGHN M.D. Performed By: #### G LULS ####Point of Care testing, Renal Function Panelon 05-24 Albumin [Mass/Vol] 1.6 g/dL Low 3.2-5.5 [facility] Comment on above: Performed By: #### C CASE, BMP #### [facility] [address] Anion gap [Moles/Vol] 13.6 mmol/L Normal 6.0-15.0 [facility] Comment on above: Performed By: #### C CASE, BMP #### [facility] [address] Calcium [Mass/Vol] 7.5 mg/dL Low 8.2-10.2 [facility] Comment on above: Performed By: #### C CASE, BMP #### [facility] [address] Chloride [Moles/Vol] 104 mmol/L Normal 95-114 [facility] Comment on above: Performed By: #### C CASE, BMP #### [facility] [address] CO2 [Moles/Vol] 19.6 mmol/L Low 22.0-30.0 [facility] Comment on above: Performed By: #### C CASE, BMP #### [facility] [address] Creatinine [Mass/Vol] 4.62 mg/dL High 0.64-1.27 [facility] Comment on above: Performed By: #### C CASE, BMP #### [facility] [address] [place] [address] [place] Creatinine Clr Calc Pharmacy 21.46 [facility] Comment on above: Result Comment: PERF ORMED BY: [place] [address] PATHOLOGIST [employer] SESAR VAUGHN M.D. Performed By: #### C CASE, BMP #### [facility] [address] [place] [address] [place] Estimated GFR ( Wendy 16 Normal [facility] Comment on above: Result Comment: GFR estimated reference range: According to KDOQI guidelines, <60 ml/min/1.73m2 is sufficient to diagnose a patient with chronic kidney disease. Performed By: #### C CASE, BMP #### [facility] [address] Estimated GFR (Non- Am 13 Normal [facility] Comment on above: Performed By: #### C CASE, BMP #### [facility] [address] Glucose [Mass/Vol] 87 mg/dL Normal 70-100 [facility] Comment on above: Result Comment: [place] Glucose Reference Range is dependent on time and content of last meal. Glucose of more than 200 mg/dL in a nonstressed, ambulatory subject supports the diagnosis of Diabetes Mellitus. ADA recommended reference range Performed By: #### C CASE, BMP #### [facility] [address] Phosphate [Mass/Vol] 4.3 mg/dL Normal 2.5-4.6 [facility] Comment on above: Performed By: #### C CASE, BMP #### [facility] [address] [place] [address] [place] Potassium [Moles/Vol] 4.2 mmol/L Normal 3.5-5.1 [facility] Comment on above: Performed By: #### C CASE, BMP #### [facility] [address] [place] [address] [place] Sodium [Moles/Vol] 133 mmol/L Low 136-146 [facility] Comment on above: Performed By: #### C CASE, BMP #### [facility] [address] [place] [id number] [place] Urea nitrogen [Mass/Vol] 72 mg/dL High 9-23 [facility] Comment on above: Performed By: #### C CASE, BMP #### [place] [address] [place] Vancomycin [Mass/volume] in Serum or PlasmaOrdered By: Salvador Alonso on 05-24-2022 Vancomycin [Mass/Vol] 18.0 ug/mL 5.0-20.0 [facility] Comment on above: Last dose: - Vancomycin,Randomon 05-25-19 23 Vancomycin,Random 18.0 ug/mL Normal 5.0-20.0 [facility] Comment on above: Order Comment: Date of last dose?: 20220522 Time of last dose?: 1130 Result Comment: Last dose: - PERFORMED BY: [place] [address] PATHOLOGIST [employer] SESAR VAUGHN M.D. Performed By: #### G BERT #### Point of Care testing , Complete Blood Count Auto Di ffon 05-23-2022 Basophils (Bld) [#/Vol] 0.1 10*3/uL Normal 0.0-0.2 [facility] Comment on above: Result Comment: PERF ORMED BY: [place] [address] PATH[employer]IST [employer] SESAR VAUGHN M.D. Performed By: #### C BCNO, BMP #### [address] Basophils/100 WBC (Bld) 1.5 % Normal . [facility] Comment on above: Performed By: #### C BCNO, BMP #### [address] Eosinophils (Bld) [#/Vol] 0.2 10*3/uL Normal 0.0-0.45 [facility] Comment on above: Performed By: #### C BCNO, BMP #### [place] [address] [place] Eosinophils/100 WBC (Bld) 2.2 % Normal . [facility] Comment on above: Performed By: #### C BCNO, BMP #### [address] Erythrocyte distribution width (RBC) [Ratio] 14.9 % High 12.0-14.8 [facility] Comment on above: Performed By: #### C BCNO, BMP #### [address] [place] [address] [place] Hematocrit (Bld) [Volume fraction] 24.7 % Low 38.8-50.0 [facility] Comment on above: Performed By: #### C CASE, BMP #### [facility] [address] Hemoglobin (Bld) [Mass/Vol] 8.3 g/dL Low 13.0-17.0 [facility] Comment on above: Performed By: #### C CASE, BMP #### [facility] [address] Lymphocytes (Bld) [#/Vol] 0.8 10*3/uL Low 1.00-4.8 [facility] Comment on above: Performed By: #### C CASE, BMP #### [address] Lymphocytes/100 WBC (Bld) 10.5 % Normal . [facility] Comment on above: Performed By: #### C CASE, BMP #### [address] MCH (RBC) [Entitic mass] 27.5 pg Normal 27.5-35.2 [facility] Comment on above: Performed By: #### C CASE, BMP #### [address] MCV (RBC) [Entitic vol] 81.5 fL Low 83.5-101 F [facility] Comment on above: Performed By: #### C CASE, BMP #### [address] Mean Corpuscular HGB Conc 33.7 g/dL Normal 32.5-35.6 [facility] Comment on above: Performed By: #### C CASE, BMP #### [address] Monocytes (Bld) [#/Vol] 0.7 10*3/uL Normal 0.0-0.8 [facility] Comment on above: Performed By: #### C CASE, BMP #### [facility] [address] [place] [address] [place] Monocytes/100 WBC (Bld) 10.0 % Normal . [facility] Comment on above: Performed By: #### C CASE, BMP #### [facility] [address] [place] [address] [place] Neutrophils (Bld) [#/Vol] 5.6 10*3/uL Normal 1.8-7.7 [facility] Comment on above: Performed By: #### C CASE, BMP #### [facility] [address] [place] [id number] [place] Neutrophils/100 WBC (Bld) 75.8 % Normal . [facility] Comment on above: Performed By: #### C CASE, BMP #### [facility] [address] [place] [address] [place] NRBC% 0.1 /100{WBC} Normal 0-0.5 [facility] Comment on above: Performed By: #### C CASE, BMP #### [facility] [address] [place] [id number] [place] Platelet mean volume (Bld) [Entitic vol] 8.8 fL Normal 6.6-10.1 [facility] Comment on above: Performed By: #### C CASE, BMP #### [facility] [address] [place] [id number] [place] Platelets (Bld) [#/Vol] 171 10*3/uL Normal 150-450 [facility] Comment on above: Performed By: #### C CASE, BMP #### [facility] [address] [place] [id number] [place] RBC (Bld) [#/Vol] 3.03 10*6/uL Low 3.90-5.60 [facility] Comment on above: Performed By: #### C CASE, BMP #### [facility] [address] [place] [id number] [place] WBC (Bld) [#/Vol] 7.4 10*3/uL Normal 4.1-10.5 [facility] Comment on above: Performed By: #### C BCNO, BMP #### [facility] [address] Glucose Poct Glucometerson 0 05-23-2022 Glucose [Mass/Vol] 125 mg/dL Normal [facility] Comment on above: Result Comment: [facility] Glucose Reference Range is dependent on time and content of last meal. Glucose of more than 200 mg/dL in a nonstressed, ambulatory subject supports the diagnosis of Diabetes Mellitus. PERFORMED BY: [place] [address] PATHOLOGIST [employer] SESAR VAUGHN M.D. Performed By: #### G LULS ####Point of Care testing, Glucose [Mass/Vol] 129 mg/dL Normal [facility] Comment on above: Result Comment: [facility] Glucose Reference Range is dependent on time and content of last meal. Glucose of more than 200 mg/dL in a nonstressed, ambulatory subject supports the diagnosis of Diabetes Mellitus. PERFORMED BY: [place] [address] PATHOLOGIST [employer] SESAR VAUGHN M.D. Performed By: #### G LULS ####Point of Care testing, Glucose [Mass/Vol] 164 mg/dL Normal [facility] Comment on above: Result Comment: [facility] Glucose Reference Range is dependent on time and content of last meal. Glucose of more than 200 mg/dL in a nonstressed, ambulatory subject supports the diagnosis of Diabetes Mellitus. PERFORMED BY: [place] [address] PATHOLOGIST [employer] SESAR VAUGHN M.D. Performed By: #### C RP #### [address] Renal Function Panelon 05-23 Albumin [Mass/Vol] 1.7 g/dL Low 3.2-5.5 [facility] Comment on above: Performed By: #### C BCNO, BMP #### [address] Anion gap [Moles/Vol] 13.0 mmol/L Normal 6.0-15.0 [facility] Comment on above: Performed By: #### C CASE, BMP #### [facility] [address] Calcium [Mass/Vol] 7.5 mg/dL Low 8.2-10.2 [facility] Comment on above: Performed By: #### C CASE, BMP #### [facility] [address] Chloride [Moles/Vol] 103 mmol/L Normal 95-114 [facility] Comment on above: Performed By: #### C CASE, BMP #### [facility] [address] CO2 [Moles/Vol] 20.1 mmol/L Low 22.0-30.0 [facility] Comment on above: Performed By: #### C CASE, BMP #### [facility] [address] Creatinine [Mass/Vol] 4.57 mg/dL High 0.64-1.27 [facility] Comment on above: Performed By: #### C CASE, BMP #### [address] Creatinine Clr Calc Pharmacy 21.49 [facility] Comment on above: Result Comment: PERF ORMED BY: [place] [address] PATHOLOGIST [employer] SESAR VAUGHN M.D. Performed By: #### C CASE, BMP #### [address] Estimated GFR ( Wendy 16 [facility] Comment on above: Result Comment: GFR estimated reference range: According to KDOQI guidelines, <60 ml/min/1.73m2 is sufficient to diagnose a patient with chronic kidney disease. Performed By: #### C BCSHANTANU, BMP #### [address] Estimated GFR (Non- Am 13 [facility] Comment on above: Performed By: #### C CASE, BMP #### [facility] [address] Glucose [Mass/Vol] 93 mg/dL Normal 70-100 [facility] Comment on above: Result Comment: [place] Glucose Reference Range is dependent on time and content of last meal. Glucose of more than 200 mg/dL in a nonstressed, ambulatory subject supports the diagnosis of Diabetes Mellitus. ADA recommended reference range Performed By: #### C CASE, BMP #### [facility] [address] Phosphate [Mass/Vol] 4.6 mg/dL Normal 2.5-4.6 [facility] Comment on above: Performed By: #### C CASE, BMP #### [address] Potassium [Moles/Vol] 4.1 mmol/L Normal 3.5-5.1 [facility] Comment on above: Performed By: #### C CASE, BMP #### [address] Sodium [Moles/Vol] 132 mmol/L Low 136-146 [facility] Comment on above: Performed By: #### C CASE, BMP #### [address] Urea nitrogen [Mass/Vol] 69 mg/dL High 9-23 [facility] Comment on above: Performed By: #### C CASE, BMP #### [address] Complete Blood Count Auto Di ffon 05-22-2022 Basophils (Bld) [#/Vol] 0.1 10*3/uL Normal 0.0-0.2 [facility] Comment on above: Result Comment: PERF ORMED BY: [place] [address] PATHOLOGIST [employer] SESAR VAUGHN M.D. Performed By: #### R ENJENIFFER, CBC #### [address] [place] [address] [place] Basophils/100 WBC (Bld) 0.6 % Normal . [facility] Comment on above: Performed By: #### R ENAL, CBC #### [facility] [address] Eosinophils (Bld) [#/Vol] 0.1 10*3/uL Normal 0.0-0.45 [facility] Comment on above: Performed By: #### R ENAL, CBC #### [facility] [address] Eosinophils/100 WBC (Bld) 0.8 % Normal . [facility] Comment on above: Performed By: #### R ENAL, CBC #### [address] Erythrocyte distribution width (RBC) [Ratio] 15.4 % High 12.0-14.8 [facility] Comment on above: Performed By: #### R ENAL, CBC #### [address] Hematocrit (Bld) [Volume fraction] 25.9 % Low 38.8-50.0 [facility] Comment on above: Performed By: #### R ENAL, CBC #### [place] [address] [place] Hemoglobin (Bld) [Mass/Vol] 8.6 g/dL Low 13.0-17.0 [facility] Comment on above: Performed By: #### R ENAL, CBC #### [place] [address] [place] Lymphocytes (Bld) [#/Vol] 0.6 10*3/uL Low 1.00-4.8 [facility] Comment on above: Performed By: #### R ENAL, CBC #### [place] [address] [place] Lymphocytes/100 WBC (Bld) 7.4 % Normal . [facility] Comment on above: Performed By: #### R ENAL, CBC #### [place] [id number] [place] MCH (RBC) [Entitic mass] 27.3 pg Low 27.5-35.2 [facility] Comment on above: Performed By: #### R LYNETTE, CBC #### [address] MCV (RBC) [Entitic vol] 81.7 fL Low 83.5-101 F [facility] Comment on above: Performed By: #### R LINSEYAL, CBC #### [address] Mean Corpuscular HGB Conc 33.4 g/dL Normal 32.5-35.6 [facility] Comment on above: Performed By: #### R LYNETTE, CBC #### [address] Monocytes (Bld) [#/Vol] 0.7 10*3/uL Normal 0.0-0.8 [facility] Comment on above: Performed By: #### R LINSEYAL, CBC #### [address] Monocytes/100 WBC (Bld) 7.6 % Normal . [facility] Comment on above: Performed By: #### R LYNETTE, CBC #### [address] Neutrophils (Bld) [#/Vol] 7.3 10*3/uL Normal 1.8-7.7 [facility] Comment on above: Performed By: #### R ENJENIFFER, CBC #### [address] Neutrophils/100 WBC (Bld) 83.6 % Normal . [facility] Comment on above: Performed By: #### R ENAL, CBC #### [address] NRBC% 0.0 /100{WBC} Normal 0-0.5 [facility] Comment on above: Performed By: #### R LYNETTE, CBC #### [address] Platelet mean volume (Bld) [Entitic vol] 9.3 fL Normal 6.6-10.1 [facility] Comment on above: Performed By: #### R ENAL, CBC #### [facility] [address] Platelets (Bld) [#/Vol] 174 10*3/uL Normal 150-450 [facility] Comment on above: Performed By: #### R ENAL, CBC #### [facility] [address] RBC (Bld) [#/Vol] 3.17 10*6/uL Low 3.90-5.60 [facility] Comment on above: Performed By: #### R ENAL, CBC #### [facility] [address] WBC (Bld) [#/Vol] 8.7 10*3/uL Normal 4.1-10.5 [facility] Comment on above: Performed By: #### R ENAL, CBC #### [address] Glucose Poct Glucometerson 0 05-22-2022 Glucose [Mass/Vol] 157 mg/dL Normal [facility] Comment on above: Result Comment: [facility] Glucose Reference Range is dependent on time and content of last meal. Glucose of more than 200 mg/dL in a nonstressed, ambulatory subject supports the diagnosis of Diabetes Mellitus. PERFORMED BY: [place] [address] PATH[employer]IST [employer] SESAR VAUGHN M.D. Performed By: #### C RP #### [address] Glucose [Mass/Vol] 164 mg/dL Normal [facility] Comment on above: Result Comment: [facility] Glucose Reference Range is dependent on time and content of last meal. Glucose of more than 200 mg/dL in a nonstressed, ambulatory subject supports the diagnosis of Diabetes Mellitus. PERFORMED BY: [place] [address] PATHOLOGIST [employer] SESAR VAUGHN M.D. Performed By: #### G LULS #### Point of Care testing , Glucose [Mass/Vol] 126 mg/dL Normal [facility] Comment on above: Result Comment: [place] Glucose Reference Range is dependent on time and content of last meal. Glucose of more than 200 mg/dL in a nonstressed, ambulatory subject supports the diagnosis of Diabetes Mellitus. PERFORMED BY: [place] [address] PATHOLOGIST [employer] SESAR VAUGHN M.D. Performed By: #### C BCNO, BMP #### [address] Commemt1 Glu2: Cleaned Meter Normal [facility] Comment on above: Result Comment: PERF ORMED BY: [place] [address] PATHOLOGIST [employer] SESAR VAUGHN M.D. Performed By: #### G LULS #### Point of Care testing , Glucose [Mass/Vol] 84 mg/dL Normal [facility] Comment on above: Result Comment: [place] Glucose Reference Range is dependent on time and content of last meal. Glucose of more than 200 mg/dL in a nonstressed, ambulatory subject supports the diagnosis of Diabetes Mellitus. Performed By: #### G LULS #### Point of Care testing , Renal Function Panelon 05-22 Albumin [Mass/Vol] 1.7 g/dL Low 3.2-5.5 [facility] Comment on above: Performed By: #### R ENAL, CBC #### [address] Anion gap [Moles/Vol] 12.4 mmol/L Normal 6.0-15.0 [facility] Comment on above: Performed By: #### R ENAL, CBC #### [address] Calcium [Mass/Vol] 7.5 mg/dL Low 8.2-10.2 [facility] Comment on above: Performed By: #### R ENAL, CBC #### [facility] [address] [place] [address] [place] Chloride [Moles/Vol] 103 mmol/L Normal 95-114 [facility] Comment on above: Performed By: #### R ENAL, CBC #### [facility] [address] [place] [address] [place] CO2 [Moles/Vol] 19.9 mmol/L Low 22.0-30.0 [facility] Comment on above: Performed By: #### R ENAL, CBC #### [facility] [address] Creatinine [Mass/Vol] 4.75 mg/dL High 0.64-1.27 [facility] Comment on above: Performed By: #### R ENAL, CBC #### [facility] [address] [place] [address] [place] Creatinine Clr Calc Pharmacy 20.48 [facility] Comment on above: Result Comment: PERF ORMED BY: [place] [address] PATHOLOGIST [employer] SESAR VAUGHN M.D. Performed By: #### R ENAL, CBC #### [facility] [address] Estimated GFR ( Wendy 15 [facility] Comment on above: Result Comment: GFR estimated reference range: According to KDOQI guidelines, <60 ml/min/1.73m2 is sufficient to diagnose a patient with chronic kidney disease. Performed By: #### R ENAL, CBC #### [facility] [address] [place] [address] [place] Estimated GFR (Non- Am 13 [facility] Comment on above: Performed By: #### R ENAL, CBC #### [facility] [address] Glucose [Mass/Vol] 78 mg/dL Normal 70-100 [facility] Comment on above: Result Comment: [place] Glucose Reference Range is dependent on time and content of last meal. Glucose of more than 200 mg/dL in a nonstressed, ambulatory subject supports the diagnosis of Diabetes Mellitus. ADA recommended reference range Performed By: #### R ENAL, CBC #### [facility] [address] Phosphate [Mass/Vol] 4.5 mg/dL Normal 2.5-4.6 [facility] Comment on above: Performed By: #### R ENAL, CBC #### [facility] [address] Potassium [Moles/Vol] 4.3 mmol/L Normal 3.5-5.1 [facility] Comment on above: Performed By: #### R LYNETTE, CBC #### [address] Sodium [Moles/Vol] 131 mmol/L Low 136-146 [facility] Comment on above: Performed By: #### R LYNETTE, CBC #### [address] Urea nitrogen [Mass/Vol] 69 mg/dL High 9-23 [facility] Comment on above: Performed By: #### R LYNETTE, CBC #### [place] [address] [place] Vancomycin,Randomon 05-23-19 23 Vancomycin,Random 12.1 ug/mL Normal 5.0-20.0 [facility] Comment on above: Order Comment: Date of last dose?: 20220520 Time of last dose?: 1699 Result Comment: Last dose: - PERFORMED BY: [place] [address] PATH[employer] SESAR VAUGHN M.D. Performed By: #### C RP #### [place] [address] [place] ABO/Rh Retypeon 05-21-2022 ABO/RH Recheck Result Positive Normal [facility] Comment on above: Result Comment: PERF ORMED BY: [place] [address] PATH[employer]IST [employer] SESAR VAUGHN M.D. Aerobic Cultureon 05-21-2022 Aerobic Culture No Growth 2 Days ORGANISM: Bacteroides fragilis (O:BACFRA) Comments Sent to [facility] for Sensitivity Testing Quantity of Growth Light Growth See report. Scanned copy available in EMR. Gram Stain Result Rare Gram Negative Bacilli Rare White Blood Cells PERFORMED BY: [place] [address] PATHOLOGIST [employer] SESAR VAUGHN M.D. Normal [facility] Comment on above: Performed By: #### G BERT #### Point of Care testing , Aerobic cultureOrdered By: Hortencia Luis on 05-21-2022 Bacteria identified Aer cx Nom (Unsp spec) No Growth 2 Days [facility] Bacteria identified Aer cx Nom (Unsp spec) No Growth 2 Days [facility] Bacteria identified Anaer cx Nom (Unsp spec)Ordered By: PHILLIP Luis on 05-21-2022 Anaerobic Culture Bacteroides fragilis [facility] Bacterial susceptibility melo el MARCELO (Isol)on 05-21-2022 Microorganism identified Cx Nom (Unsp spec) [id number] Abnormal [facility] Comment on above: Order Comment: Speci men Type: MICROBIAL ISOLATEOrdering Facility: [facility] Address: [address] [place], [place] [id number] Result Comment: Bact eroides fragilis Identification performed by client. Bacteroides spp. are intrinsically resistant to ampicillin, penicillin, and aminoglycosides. Performed By: #### 5 0545-3, 21423-1 ####[facility] LABCLIA [id number] [facility] [id number] [id number] [place] Bacterial susceptibility melo el Strip (Isol)on 05-21-2022 Ampicillin+Sulbactam [Susc] 8 Susceptible Susceptible <=8 , Intermediate >8 , Resistant >16 [facility] Comment on above: Order Comment: Order ing Facility: [facility] Address: [address] [place] [id number] Performed By: #### 5 0545-3, 48251-5 ####[facility] LABCLIA [id number] [address] [place] Ertapenem MARCELO [Susc] 2 Susceptible Suscept ible <=4 , Intermediate >4 , Resistant >8 [facility] Comment on above: Order Comment: Order ing Facility: [facility] Address: [address] [place], [place] [id number] Performed By: #### 5 0545-3, 21572-0 ####[facility] LABCLIA [id number] [address] [place] metroNIDAZOLE [Susc] 0.064 Susceptible Suscept ible <=8 , Intermediate >8 , Resistant >16 [facility] Comment on above: Order Comment: Order ing Facility: [facility] Address: [address] [place], [place] [id number] Performed By: #### 5 0545-3, 45960-7 ####[facility] LABCLIA [id number] [address] [place] CT biopsyOrdered By: Cristobal bauer on 05-21-2022 Transferrin [Mass/Vol] 74 mg/dL 180-380 [facility] Complete Blood Count Auto Di ffon 05-21-2022 Basophils (Bld) [#/Vol] 0.0 10*3/uL Normal 0.0-0.2 [facility] Comment on above: Result Comment: PERF ORMED BY: [address] [place] [address] PATHOLOGIST [employer] SESAR VAUGHN M.D. Performed By: #### C BCNO, BMP #### [facility] [address] [place] [address] [place] Basophils/100 WBC (Bld) 0.4 % Normal . [facility] Comment on above: Performed By: #### C BCNO, BMP #### [facility] [address] [place] [address] Eosinophils (Bld) [#/Vol] 0.1 10*3/uL Normal 0.0-0.45 [facility] Comment on above: Performed By: #### C BCNO, BMP #### [facility] [address] Eosinophils/100 WBC (Bld) 0.8 % Normal . [facility] Comment on above: Performed By: #### C BCNO, BMP #### [facility] [address] Erythrocyte distribution width (RBC) [Ratio] 15.1 % High 12.0-14.8 [facility] Comment on above: Performed By: #### C BCNO, BMP #### [facility] [address] Hematocrit (Bld) [Volume fraction] 23.5 % Low 38.8-50.0 [facility] Comment on above: Performed By: #### C BCNO, BMP #### [address] Hemoglobin (Bld) [Mass/Vol] 7.7 g/dL Low 13.0-17.0 [facility] Comment on above: Performed By: #### C BCNO, BMP #### [address] Lymphocytes (Bld) [#/Vol] 0.5 10*3/uL Low 1.00-4.8 [facility] Comment on above: Performed By: #### C BCNO, BMP #### [address] Lymphocytes/100 WBC (Bld) 6.7 % Normal . [facility] Comment on above: Performed By: #### C BCNO, BMP #### [facility] [address] MCH (RBC) [Entitic mass] 26.8 pg Low 27.5-35.2 [facility] Comment on above: Performed By: #### C BCNO, BMP #### [address] MCV (RBC) [Entitic vol] 81.6 fL Low 83.5-101 [facility] Comment on above: Performed By: #### C BCNO, BMP #### [facility] [address] Mean Corpuscular HGB Conc 32.8 g/dL Normal 32.5-35.6 [facility] Comment on above: Performed By: #### C BCNO, BMP #### [facility] [address] [place] [address] [place] Monocytes (Bld) [#/Vol] 0.8 10*3/uL Normal 0.0-0.8 [facility] Comment on above: Performed By: #### C BCNO, BMP #### [facility] [address] Monocytes/100 WBC (Bld) 11.5 % Normal . [facility] Comment on above: Performed By: #### C BCNO, BMP #### [facility] [address] [place] [address] [place] Neutrophils (Bld) [#/Vol] 5.6 10*3/uL Normal 1.8-7.7 [facility] Comment on above: Performed By: #### C BCNO, BMP #### [facility] [address] [place] [address] [place] Neutrophils/100 WBC (Bld) 80.6 % Normal . [facility] Comment on above: Performed By: #### C BCNO, BMP #### [facility] [address] [place] [address] [place] NRBC% 0.1 /100{WBC} Normal 0-0.5 [facility] Comment on above: Performed By: #### C BCNO, BMP #### [facility] [address] [place] [address] [place] Platelet mean volume (Bld) [Entitic vol] 9.4 fL Normal 6.6-10.1 [facility] Comment on above: Performed By: #### C BCNO, BMP #### [facility] [address] [place] [address] [place] Platelets (Bld) [#/Vol] 157 10*3/uL Normal 150-450 [facility] Comment on above: Performed By: #### C BCNO, BMP #### [facility] [address] RBC (Bld) [#/Vol] 2.88 10*6/uL Low 3.90-5.60 [facility] Comment on above: Performed By: #### C BCNO, BMP #### [facility] [address] WBC (Bld) [#/Vol] 7.0 10*3/uL Normal 4.1-10.5 [facility] Comment on above: Performed By: #### C BCNO, BMP #### [facility] [address] Ferritinon 05-21-2022 Ferritin [Mass/Vol] 757.4 ng/mL High 23.9-336.2 [facility] Comment on above: Result Comment: PERF ORMED BY: [place] [address] PATHOLOGIST [employer] SESAR VAUGHN M.D. Performed By: #### F ER, FE and TIBC ####[facility] [id number] Ferritin [Mass/volume] in Se rum or PlasmaOrdered By: Cristobal Butts on 05-21-2022 Ferritin [Mass/Vol] 757.4 ng/mL 23.9-336.2 [facility] Glucose Poct Glucometerson 0 05-21-2022 Commemt1 Glu2: Cleaned Meter Normal [facility] Comment on above: Result Comment: PERF ORMED BY: [place] [address] PATHOLOGIST [employer] SESAR VAUGHN M.D. Performed By: #### C RP #### [facility] [address] Glucose [Mass/Vol] 77 mg/dL Normal [facility] Comment on above: Result Comment: [place] Glucose Reference Range is dependent on time and content of last meal. Glucose of more than 200 mg/dL in a nonstressed, ambulatory subject supports the diagnosis of Diabetes Mellitus. Performed By: #### C RP #### [address] Glucose [Mass/Vol] 80 mg/dL Normal [facility] Comment on above: Result Comment: [place] om Glucose Reference Range is dependent on time and content of last meal. Glucose of more than 200 mg/dL in a nonstressed, ambulatory subject supports the diagnosis of Diabetes Mellitus. PERFORMED BY: [place] [address] PATHOLOGIST [employer] SESAR VAUGHN M.D. Performed By: #### C MANNYNO, BMP #### [address] Glucose [Mass/Vol] 192 mg/dL Normal [facility] Comment on above: Result Comment: [place] om Glucose Reference Range is dependent on time and content of last meal. Glucose of more than 200 mg/dL in a nonstressed, ambulatory subject supports the diagnosis of Diabetes Mellitus. PERFORMED BY: [place] [address] PATHOLOGIST [employer] SESAR VAUGHN M.D. Performed By: #### C MANNYNO, BMP #### [address] Glucose [Mass/Vol] 96 mg/dL Normal [facility] Comment on above: Result Comment: [place] om Glucose Reference Range is dependent on time and content of last meal. Glucose of more than 200 mg/dL in a nonstressed, ambulatory subject supports the diagnosis of Diabetes Mellitus. PERFORMED BY: [place] [address] PATHOLOGIST [employer] SESAR VAUGHN M.D. Performed By: #### C RP #### [address] Gram stain for investigation of transfusion reactionOrdered By: PHILLIP Luis on 05-21-2022 Microscopic observation Gram stain Nom (Unsp spec) [facility] Microscopic observation Gram stain Nom (Unsp spec) [facility] Iron [Mass/volume] in Serum or PlasmaOrdered By: Cristobal Butts on 05-21-2022 Iron [Mass/Vol] 20 ug/dL 40-160 [facility] Iron and TIBC Profileon % Iron Saturation 19.2 % Low 20-50 [facility] Comment on above: Performed By: #### F ER, FE and TIBC ####[facility] Bsy[address] Iron [Mass/Vol] 20 ug/dL Low 40-160 [facility] Comment on above: Performed By: #### F ER, FE and TIBC ####[facility] [id number] Total Iron Binding Capacity 104 ug/dL Low 255-450 [facility] Comment on above: Performed By: #### F ER, FE and TIBC ####[facility] [id number] [address] Transferrin [Mass/Vol] 74 mg/dL Low 180-380 [facility] Comment on above: Performed By: #### F ER, FE and TIBC ####[place] [id number] [address] Iron binding capacity [Mass/ volume] in Serum or PlasmaOrdered By: Cristobal Butts on 05-21-2022 Iron binding capacity [Mass/Vol] 104 ug/dL 255-450 [facility] Iron saturation [Mass Fracti on] in Serum or PlasmaOrdered By: Cristobal Butts on 05-21-2022 Iron saturation [Mass fraction] 19.2 % 20-50 [facility] Stewart 05-21-2022 L --- Specimen: [id number] Received: 05/22/22 Status: ANSELMO Gonzales Num: [id number] Spec Type: Surgical Subm Dr: Primo Luis,HARRY, MS, CWS Tissues: A DIGIT AMPUTATION (4TH RT TOE) Procedures: HE/2, Gross/Micro L4, Decalcification Age/ Patient Sex Location Account Attending Physician Gopal Yates Jr/[facility] [id number] Scotty Kahn DO SPEC NUM: [id number] RECD: 05/22/22 STATUS: ANSELMO GONZALES NUM: [id number] NATY: 05/21/[address] [facility] [address]: Primo Luis,HARRY, MS, CWS ENTERED: 05/22/[address]: SPEC TYPE: Surgical DEPT: S ORDERED: [...] and the underlying bone is obregon, trabecular.. 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 Microscopic Description Two glass slides with H E stained material have been examined. The microscopic findings support the above pathologic diagnosis. Specimen: [id number] Received: 05/22/22 Status: ANSELMO Vivasyancy Num: [id number] Spec Type: Surgical Subm Dr: Primo Luis,HARRY, MS, CWS Tissues: A DIGIT AMPUTATION (4TH RT TOE) Procedures: ROQUE, Gross/Micro L4, Decalcification Patient: Gopal Yates Jr [id number] (Continued) Specimen: [id number] Received: 05/22/22 (Continued) Signed (signature on file) Dee Nogueira MD 05/25/22 1200 Specimen: Received: 05/22/22 Status: ANSELMO Gonzales Num: [id number] Spec Type: Surgical Subm Dr: Primo Luis,DPM, MS, CWS Tissues: A DIGIT AMPUTATION (4TH RT TOE) Procedures: HE/René, Gross/Micro L4, Decalcification Patient: Gopal Yates Jr [id number] (Continued) Specimen: Received: 05/22/22 (Continued) CPT Codes 94633, 26763 Specimen: [id number] Received: 05/22/22 Status: ANSELMO Gonzales Num: [id number] Spec Type: Surgical Subm Dr: Primo Luis,DPM, MS, CWS Tissues: A DIGIT AMPUTATION (4TH RT TOE) Procedures: HE/2, Gross/Micro L4, Decalcification Patient: Gopal Yates Jr [id number] (Continued) Signed (signature on file) Dee Nogueira MD 05/25/22 1200 [facility] LeukoReduced RBCon LeukoReduced RBC TRANSFUSED 05/21/22 1251 [facility] MR foot RT wo conon 05-22-19 MR foot RT wo con [facility] [place] [address] [place] [address] MRI Report Signed Patient: Gopal Yates Jr MR#: [id number] : 1965 Acct:[id number] Age/Sex: 56 / M ADM Date: 05/20/22 Loc: Room: [address] [place] [address] Type: ADM IN Attending Dr: Salvador Alonso MD Copies to: MD Primo Boles,HARRY, MS, CWS Ordering Provider: Primo Luis DPM, [...] Flynn Bradley M.D.05/21/2022 10:03 AM Dictation Location: [place] [address] Transcribed By: [facility] 05/21/22 1003 Dictated By: Flynn Bradley II, MD 05/21/22 0954 Signed By: 05/21/22 1003 Normal [facility] Renal Function Panelon 05-21 Albumin [Mass/Vol] 1.7 g/dL Low 3.2-5.5 [facility] Comment on above: Performed By: #### C #### [facility] [address] [place] [address] Anion gap [Moles/Vol] 13.3 mmol/L Normal 6.0-15.0 [facility] Comment on above: Performed By: #### C RP #### [facility] [address] Calcium [Mass/Vol] 7.5 mg/dL Low 8.2-10.2 [facility] Comment on above: Performed By: #### C RP #### [facility] [address] Chloride [Moles/Vol] 102 mmol/L Normal 95-114 [facility] Comment on above: Performed By: #### C RP #### [facility] [address] CO2 [Moles/Vol] 19.7 mmol/L Low 22.0-30.0 [facility] Comment on above: Performed By: #### C RP #### [address] Creatinine [Mass/Vol] 5.24 mg/dL High 0.64-1.27 [facility] Comment on above: Performed By: #### C RP #### [address] Creatinine Clr Calc Pharmacy 18.57 [facility] Comment on above: Result Comment: PERF ORMED BY: [place] [address] PATHOLOGIST [employer] SESAR VAUGHN M.D. Performed By: #### C RP #### [address] Estimated GFR ( Wendy 14 [facility] Comment on above: Result Comment: GFR estimated reference range: According to KDOQI guidelines, <60 ml/min/1.73m2 is sufficient to diagnose a patient with chronic kidney disease. Performed By: #### C RP #### [place] [address] [place] Estimated GFR (Non- Am 11 [facility] Comment on above: Performed By: #### C RP #### [place] [address] [place] Glucose [Mass/Vol] 86 mg/dL Normal 70-100 [facility] Comment on above: Result Comment: [place] Glucose Reference Range is dependent on time and content of last meal. Glucose of more than 200 mg/dL in a nonstressed, ambulatory subject supports the diagnosis of Diabetes Mellitus. ADA recommended reference range Performed By: #### C RP #### [facility] [address] Phosphate [Mass/Vol] 5.3 mg/dL High 2.5-4.6 [facility] Comment on above: Performed By: #### C RP #### [facility] [address] Potassium [Moles/Vol] 4.0 mmol/L Normal 3.5-5.1 [facility] Comment on above: Performed By: #### C RP #### [facility] [address] Sodium [Moles/Vol] 131 mmol/L Low 136-146 [facility] Comment on above: Performed By: #### C RP #### [facility] [address] Urea nitrogen [Mass/Vol] 72 mg/dL High 9-23 [facility] Comment on above: Performed By: #### C RP #### [facility] [address] [place] [address] [place] Type and Screenon 05-21-2022 ABO and Rh group Nom (Bld) Blood group A Rh(D) positive Normal [facility] Comment on above: Order Comment: Trans fuse now? Y Number of units to transfuse now? 1 Result Comment: PERF ORMED BY: [facility] [address] [place] [address] PATHOLOGIST [employer] SESAR VAUGHN M.D. Activated partial thrombopla stin time (aPTT) in platelet poor plasma by coagulation aOrdered By: Gopal Larsen on 05-20-2022 aPTT Coag (PPP) [Time] 30.7 s 25.1-36.5 [facility] Albumin [Mass/volume] in Ser um or PlasmaOrdered By: Gopal Larsen on 05-20-2022 Albumin [Mass/Vol] 1.8 g/dL 3.2-5.5 [facility] Alkaline phosphatase [Enzyma tic activity/volume] in Serum or PlasmaOrdered By: Gopal Larsen on 05-20-2022 ALP [Catalytic activity/Vol] 169 U/L 32-92 [facility] Aspartate aminotransferase [ Enzymatic activity/volume] in Serum or PlasmaOrdered By: Gopal Larsen on 05-20-2022 AST [Catalytic activity/Vol] 95 U/L 10-42 [facility] Bacterial blood cultureOrder ed By: Gopal Larsen on 05-20-2022 Bacteria identified Cx Nom (Bld) NO GROWTH 5 DAYS [facility] Bacteria identified Cx Nom (Bld) NO GROWTH 5 DAYS [facility] Basophils Auto (Bld) [#/Vol] Ordered By: Gopal Larsen on 05-20-2022 Basophils (Bld) [#/Vol] 0.1 10*3/uL 0.0-0.2 [facility] Basophils/100 WBC Auto (Bld) Ordered By: Gopal Larsen on 05-20-2022 Basophils/100 WBC (Bld) 0.8 % . F [facility] Bilirubin.total [Mass/volume ] in Serum or PlasmaOrdered By: Gopal Larsen on 05-20-2022 Bilirubin [Mass/Vol] 1.1 mg/dL 0.3-1.2 [facility] Blood Cultureon 05-20-2022 Bacteria identified Cx Nom (Bld) NO GROWTH 5 DAYS PERFORMED BY: [facility] [address] [place] [id number] PATHOLOGIST [employer] SESAR VAUGHN M.D. Normal [facility] Comment on above: Performed By: #### C UBLD ####[facility] Oof[address] [place] [id number] [facility] Performed By: #### G LULS #### Point of Care testing , C reactive protein [Mass/vol ume] in Serum or PlasmaOrdered By: Salvador Alonso on 05-20-2022 CRP [Mass/Vol] 15.2 mg/dL 0.0-1.0 [facility] C-Reactive Proteinon 023 C-Reactive Protein 15.2 mg/dL High 0.0-1.0 [facility] Comment on above: Result Comment: PERF ORMED BY: [place] [address] PATHOLOGIST [employer] SESAR VAUGHN M.D. Performed By: #### C RP, ESR ####[facility] chest wo conon 05-20-2022 CT chest wo con [facility] [place] [address] [place] [address] CT Scan Report Signed Patient: Gopal Yates Jr MR#: [id number] : 1965 Acct:[id number] Age/Sex: 56 / M ADM Date: 05/20/22 Loc: ER Room: Type: [facility] ER Attending Dr: Copies to: Gopal Larsen [...] Macias Jr., D.O.05/20/2022 12:30 PM Dictation Location: [place] [address] Transcribed By: [facility] 05/20/22 1230 Dictated By: Armando Macias Jr, DO 05/20/22 1226 Signed By: 05/20/22 1230 Normal [facility] Calcium [Mass/volume] in Ser um or PlasmaOrdered By: Gopal Larsen on 05-20-2022 Calcium [Mass/Vol] 7.7 mg/dL 8.2-10.2 [facility] Carbon dioxide, total [Moles /volume] in Serum or PlasmaOrdered By: Gopal Larsen on 05-20-2022 CO2 [Moles/Vol] 19.9 mmol/L 22.0-30.0 [facility] Chloride [Moles/volume] in S yulissa or PlasmaOrdered By: Gopal Larsen on 05-20-2022 Chloride [Moles/Vol] 101 mmol/L 95-114 [facility] Complete Blood Count Auto Di ffon 05-20-2022 Basophils (Bld) [#/Vol] 0.1 10*3/uL Normal 0.0-0.2 [facility] Comment on above: Result Comment: PERF ORMED BY: [facility] [address] [place] [address] PATHOLOGIST [employer] SESAR VAUGHN M.D. Performed By: #### G LULS #### Point of Care testing , Basophils/100 WBC (Bld) 0.8 % Normal . [facility] Comment on above: Performed By: #### G LULS #### Point of Care testing , Eosinophils (Bld) [#/Vol] 0.0 10*3/uL Normal 0.0-0.45 [facility] Comment on above: Performed By: #### G LULS #### Point of Care testing , Eosinophils/100 WBC (Bld) 0.2 % Normal . [facility] Comment on above: Performed By: #### G LULS #### Point of Care testing , Erythrocyte distribution width (RBC) [Ratio] 14.9 % High 12.0-14.8 [facility] Comment on above: Performed By: #### G HOLGERLS #### Point of Care testing , Hematocrit (Bld) [Volume fraction] 25.4 % Low 38.8-50.0 [facility] Comment on above: Performed By: #### G LULS #### Point of Care testing , Hemoglobin (Bld) [Mass/Vol] 8.4 g/dL Low 13.0-17.0 [facility] Comment on above: Performed By: #### G HOLGERLS #### Point of Care testing , Lymphocytes (Bld) [#/Vol] 0.3 10*3/uL Low 1.00-4.8 [facility] Comment on above: Performed By: #### G HOLGERLS #### Point of Care testing , Lymphocytes/100 WBC (Bld) 3.3 % Normal . [facility] Comment on above: Performed By: #### G LULS #### Point of Care testing , MCH (RBC) [Entitic mass] 27.2 pg Low 27.5-35.2 [facility] Comment on above: Performed By: #### G HOLGERLS #### Point of Care testing , MCV (RBC) [Entitic vol] 81.9 fL Low 83.5-101 [facility] Comment on above: Performed By: #### G LULS #### Point of Care testing , Mean Corpuscular HGB Conc 33.2 g/dL Normal 32.5-35.6 [facility] Comment on above: Performed By: #### G HOLGERLS #### Point of Care testing , Monocytes (Bld) [#/Vol] 0.8 10*3/uL Normal 0.0-0.8 [facility] Comment on above: Performed By: #### G LULS #### Point of Care testing , Monocytes/100 WBC (Bld) 21.96 % High 0.00-20.00 [facility] Comment on above: Result Comment: For adults in ED, MDW > 20.0 may be associated with a higher risk of sepsis during the first 12 hrs of hospital admission Performed By: #### G HOLGERLS #### Point of Care testing , Monocytes/100 WBC (Bld) 8.7 % Normal . [facility] Comment on above: Performed By: #### G HOLGERLS #### Point of Care testing , Neutrophils (Bld) [#/Vol] 8.0 10*3/uL High 1.8-7.7 [facility] Comment on above: Performed By: #### G HOLGERLS #### Point of Care testing , Neutrophils/100 WBC (Bld) 87.0 % Normal . [facility] Comment on above: Performed By: #### G HOLGERLS #### Point of Care testing , NRBC% 0.1 /100{WBC} Normal 0-0.5 [facility] Comment on above: Performed By: #### G HOLGERLS #### Point of Care testing , Platelet mean volume (Bld) [Entitic vol] 9.3 fL Normal 6.6-10.1 [facility] Comment on above: Performed By: #### G HOLGERLS #### Point of Care testing , Platelets (Bld) [#/Vol] 165 10*3/uL Normal 150-450 [facility] Comment on above: Performed By: #### G HOLGERLS #### Point of Care testing , RBC (Bld) [#/Vol] 3.10 10*6/uL Low 3.90-5.60 [facility] Comment on above: Performed By: #### G HOLGERLS #### Point of Care testing , WBC (Bld) [#/Vol] 9.2 10*3/uL Normal 4.1-10.5 [facility] Comment on above: Performed By: #### G HOLGERLS #### Point of Care testing , Comprehensive Metabolic Pane stewart 05-20-2022 Albumin [Mass/Vol] 1.8 g/dL Low 3.2-5.5 [facility] Comment on above: Performed By: #### G HOLGERLS #### Point of Care testing , Albumin/Globulin [Mass ratio] 0.4 {ratio} Normal [facility] Comment on above: Performed By: #### G BERT #### Point of Care testing , ALP [Catalytic activity/Vol] 169 U/L High 32-92 [facility] Comment on above: Performed By: #### G HOLGERLS #### Point of Care testing , ALT [Catalytic activity/Vol] 64 U/L High 10-60 [facility] Comment on above: Performed By: #### G HOLGERLS #### Point of Care testing , Anion gap [Moles/Vol] 15.9 mmol/L High 6.0-15.0 [facility] Comment on above: Performed By: #### G HOLGERLS #### Point of Care testing , AST [Catalytic activity/Vol] 95 U/L High 10-42 [facility] Comment on above: Performed By: #### G HOLGERLS #### Point of Care testing , Bilirubin [Mass/Vol] 1.1 mg/dL Normal 0.3-1.2 [facility] Comment on above: Performed By: #### G BERT #### Point of Care testing , Calcium [Mass/Vol] 7.7 mg/dL Low 8.2-10.2 [facility] Comment on above: Performed By: #### G HOLGERLS #### Point of Care testing , Chloride [Moles/Vol] 101 mmol/L Normal 95-114 [facility] Comment on above: Performed By: #### G HOLGERLS #### Point of Care testing , CO2 [Moles/Vol] 19.9 mmol/L Low 22.0-30.0 [facility] Comment on above: Performed By: #### G HOLGERLS #### Point of Care testing , Creatinine [Mass/Vol] 5.50 mg/dL High 0.64-1.27 [facility] Comment on above: Performed By: #### G HOLGERLS #### Point of Care testing , Creatinine Clr Calc Pharmacy 18.19 [facility] Comment on above: Result Comment: PERF ORMED BY: [facility] [address] [place] [address] PATHOLOGIST [employer] SESAR VAUGHN M.D. Performed By: #### G LULS #### Point of Care testing , Estimated GFR ( Wendy 13 [facility] Comment on above: Result Comment: GFR estimated reference range: According to KDOQI guidelines, <60 ml/min/1.73m2 is sufficient to diagnose a patient with chronic kidney disease. Performed By: #### G LULS #### Point of Care testing , Estimated GFR (Non- Am 11 [facility] Comment on above: Performed By: #### G LULS #### Point of Care testing , Globulin (S) [Mass/Vol] 4.7 g/dL Normal [facility] Comment on above: Performed By: #### G LULS #### Point of Care testing , Glucose [Mass/Vol] 110 mg/dL High 70-100 [facility] Comment on above: Result Comment: [place] Glucose Reference Range is dependent on time and content of last meal. Glucose of more than 200 mg/dL in a nonstressed, ambulatory subject supports the diagnosis of Diabetes Mellitus. ADA recommended reference range Performed By: #### G LULS #### Point of Care testing , Potassium [Moles/Vol] 4.8 mmol/L Normal 3.5-5.1 [facility] Comment on above: Performed By: #### G LULS #### Point of Care testing , Protein [Mass/Vol] 6.5 g/dL Normal 6.1-7.9 [facility] Comment on above: Performed By: #### G LULS #### Point of Care testing , Sodium [Moles/Vol] 132 mmol/L Low 136-146 [facility] Comment on above: Performed By: #### G LULS #### Point of Care testing , Urea nitrogen [Mass/Vol] 77 mg/dL High 9-23 [facility] Comment on above: Performed By: #### G LULS #### Point of Care testing , Creatinine and Glomerular fi ltration rate.predicted panel (S/P/Bld)Ordered By: Gopal Larsen on 05-20-2022 Creatinine [Mass/Vol] 5.50 mg/dL 0.64-1.27 [facility] ECG 12 lead ECGon 05-20-2022 ECG 12 lead ECG [facility] Main [address] [address] Electrocardiograph Report Signed Patient: Gopal Yates Jr MR#: [id number] : 1965 Acct:[id number] Age/Sex: 56 / M ADM Date: 05/20/22 Loc: Room: [address] [place] [address] Type: ADM IN Attending Dr: Salvador Alonso [...] By Gopal Larsen MD 05/20/22 193 Normal [facility] Eosinophils Auto (Bld) [#/Vo l]Ordered By: Gopal Larsen on 05-20-2022 Eosinophils (Bld) [#/Vol] 0.0 10*3/uL 0.0-0.45 [facility] Eosinophils/100 WBC Auto (Bl d)Ordered By: Gopal Larsen on 05-20-2022 Eosinophils/100 WBC (Bld) 0.2 % . [facility] Erythrocyte Sedimentation Ra cindy 05-20-2022 ESR (Bld) [Velocity] 88 mm/h High 0-19 [facility] Comment on above: Result Comment: PERF ORMED BY: [address] [address] PATHOLOGIST [employer] SESAR VAUGHN M.D. Performed By: #### C RP, ESR ####[facility] [id number] [place] [address] [facility] Erythrocyte distribution wid th Auto (RBC) [Ratio]Ordered By: Gopal Larsen on 05-20-2022 Erythrocyte distribution width (RBC) [Ratio] 14.9 % 12.0-14.8 [facility] Erythrocyte sedimentation ra te by Photometric methodOrdered By: Salvador Alonso on 05-20-2022 ESR Photometric method (Bld) [Velocity] 88 mm/hr 0-19 [facility] Estimated glomerular filtrat ion rate (GFR) non- AmericanOrdered By: Gopal Larsen on 05-20-2022 GFR/1.73 sq M.predicted among non-blacks MDRD (S/P/Bld) [Vol rate/Area] 11 mL/Min [facility] Globulin Calc (S) [Mass/Vol] Ordered By: Gopal Larsen on 05-20-2022 Globulin (S) [Mass/Vol] 4.7 g/dL [facility] Glucose [Mass/volume] in Ser um or PlasmaOrdered By: Gopal Larsen on 05-20-2022 Glucose [Mass/Vol] 110 mg/dL 70-100 [facility] Comment on above: ADA recommended refe rence rangeRandom Glucose Reference Range is dependent on time and content of last meal. Glucose of more than 200 mg/dL in a nonstressed, ambulatory subject supports the diagnosis of Diabetes Mellitus. Hematocrit Auto (Bld) [Volum e fraction]Ordered By: Gopal Larsen on 05-20-2022 Hematocrit (Bld) [Volume fraction] 25.4 % 38.8-50.0 [facility] Hemoglobin [Mass/volume] in BloodOrdered By: Gopal Larsen on 05-20-2022 Hemoglobin (Bld) [Mass/Vol] 8.4 g/dL 13.0-17.0 [facility] Laboratory - CoagulationOrde red By: Gopal Larsen on 05-20-2022 PT Coag (PPP) [Time] 15.3 s 9.0-12.9 [facility] Lactic Acidon 05-20-2022 Lactate [Moles/Vol] 1.8 mmol/L Normal 0.5-2.2 [facility] Comment on above: Result Comment: PERF ORMED BY: [facility] [address] [place] [address] PATHOLOGIST [employer] SESAR VAUGHN M.D. Performed By: #### C RP #### [facility] [address] Leukocytes [#/volume] correc annalisa for nucleated erythrocytes in Blood by Automated counOrdered By: Gopal Larsen on 05-20-2022 WBC corrected for nucl RBC Auto (Bld) [#/Vol] 9.2 10*3/uL 4.1-10.5 [facility] Lymphocytes Auto (Bld) [#/Vo l]Ordered By: Gopal Larsen on 05-20-2022 Lymphocytes (Bld) [#/Vol] 0.3 10*3/uL 1.00-4.8 [facility] Lymphocytes/100 WBC Auto (Bl d)Ordered By: Gopal Larsen on 05-20-2022 Lymphocytes/100 WBC (Bld) 3.3 % . [facility] MCH Auto (RBC) [Entitic mass ]Ordered By: Gopal Larsen on 05-20-2022 MCH (RBC) [Entitic mass] 27.2 pg 27.5-35.2 [facility] MCHC Auto (RBC) [Mass/Vol]Or dered By: Gopal Larsen on 05-20-2022 MCHC (RBC) [Mass/Vol] 33.2 g/dL 32.5-35.6 [facility] MCV Auto (RBC) [Entitic vol] Ordered By: Gopal Larsen on 05-20-2022 MCV (RBC) [Entitic vol] 81.9 fL 83.5-101 [facility] Monocyte distribution width [Entitic volume] in Blood by AutomatedOrdered By: Gopal Larsen on 05-20-2022 Monocyte distribution width Auto (Bld) [Entitic vol] 21.96 % 0.00-20.00 [facility] Comment on above: For adults in ED, MD W > 20.0 may be associated with a higher risk of sepsis during the first 12 hrs of hospital admission Monocytes Auto (Bld) [#/Vol] Ordered By: Gopal Larsen on 05-20-2022 Monocytes (Bld) [#/Vol] 0.8 10*3/uL 0.0-0.8 [facility] Monocytes/100 WBC Auto (Bld) Ordered By: Gopal Larsen on 05-20-2022 Monocytes/100 WBC (Bld) 8.7 % . [facility] Neutrophils Auto (Bld) [#/Vo l]Ordered By: Gopal Larsen on 05-20-2022 Neutrophils (Bld) [#/Vol] 8.0 10*3/uL 1.8-7.7 [facility] Neutrophils/100 WBC Auto (Bl d)Ordered By: Gopal Larsen on 05-20-2022 Neutrophils/100 WBC (Bld) 87.0 % . [facility] No Panel InformationOrdered By: Gopal Larsen on 05-20-2022 Estimated GFR () 13 mL/Min [facility] Comment on above: GFR estimated refere nce range: According to KDOQI guidelines, <60 ml/min/1.73m2 is sufficient to diagnose a patient with chronic kidney disease. Pharmacy Creatinine Clearance (Chem 18.19 [facility] Nucleated erythrocytes [Pres ence] in Blood by Automated countOrdered By: Gopal Larsen on 05-20-2022 Nucleated RBC Auto Ql (Bld) 0.1 /100{WBC} 0-0.5 [facility] Partial Thromboplastin Timeo n 05-20-2022 aPTT Coag (Bld) [Time] 30.7 s Normal 25.1-36.5 [facility] Comment on above: Result Comment: PERF ORMED BY: [facility] [address] [place] [address] PATHOLOGIST [employer] SESAR VAUGHN M.D. Performed By: #### G LUEVANGELISTA #### Point of Care testing , Platelet mean volume Auto (B ld) [Entitic vol]Ordered By: Gopal Larsen on 05-20-2022 Platelet mean volume (Bld) [Entitic vol] 9.3 fL 6.6-10.1 [facility] Platelet poor plasma interna tional normalized ratio (INR) by coagulation assay (relatOrdered By: Gopal Larsen on 05-20-2022 INR Coag (PPP) [Relative time] 1.3 {INR} [facility] Comment on above: INR Therapeutic Rang e [...] 05-20-2022 Platelets (Bld) [#/Vol] 165 10*3/uL 150-450 [facility] Potassium [Moles/volume] in Serum or PlasmaOrdered By: Gopal Larsen on 05-20-2022 Potassium [Moles/Vol] 4.8 mmol/L 3.5-5.1 [facility] Protein [Mass/volume] in Ser um or PlasmaOrdered By: Gopal Larsen on 05-20-2022 Protein [Mass/Vol] 6.5 g/dL 6.1-7.9 [facility] Prothrombin Time INRon 05-20 INR Coag (PPP) [Relative time] 1.3 {INR} Normal [facility] Comment on above: Result Comment: INR Therapeutic [...] Coag (PPP) [Time] 15.3 s High 9.0-12.9 [facility] Comment on above: Performed By: #### G LULS #### Point of Care testing , RBC Auto (Bld) [#/Vol]Ordere d By: Gopal Larsen on 05-20-2022 RBC (Bld) [#/Vol] 3.10 10*6/uL 3.90-5.60 [facility] Serum or plasma alanine hayes otransferase measurement without P-5'-P (enzymatic activiOrdered By: Gopal Larsen on 05-20-2022 ALT No additional P-5'-P [Catalytic activity/Vol] 64 U/L 10-60 [facility] Serum or plasma albumin/glob ulin mass ratioOrdered By: Gopal Larsen on 05-20-2022 Albumin/Globulin [Mass ratio] 0.4 {ratio} [facility] Serum or plasma anion gap de terminationOrdered By: Gopal Larsen on 05-20-2022 Anion gap [Moles/Vol] 15.9 mmol/L 6.0-15.0 [facility] Sodium [Moles/volume] in Ser um or PlasmaOrdered By: Gopal Larsen on 05-20-2022 Sodium [Moles/Vol] 132 mmol/L 136-146 [facility] Superficial Wound Cultureon 05-20-2022 Superficial Wound Culture Light Normal Skin Efren 2 Days PERFORMED BY: [place] [address] PATHOLOGIST [employer] SESAR VAUGHN M.D. [facility] Comment on above: Performed By: #### C USUP ####[facility] [id number] [place] [id number] [facility] Urea nitrogen [Mass/volume] in Serum or PlasmaOrdered By: Gopal Larsen on 05-20-2022 Urea nitrogen [Mass/Vol] 77 mg/dL 9 [facility] Urine lactic acid measuremen tOrdered By: Gopal Larsen on 05-20-2022 Lactate (U) [Moles/Vol] 1.8 mmol/L 0.5-2.2 [facility] WBC Auto (Bld) [#/Vol]Ordere d By: Gopal Larsen on 05-20-2022 WBC (Bld) [#/Vol] 9.2 10*3/uL 4.1-10.5 [facility] XR chest 1V portableon 05-20 XR chest 1V portable [facility] Main [place] [address] [place] [address] XRay Report Signed Patient: Gopal Yates Jr MR#: [id number] : 1965 Acct:[id number] Age/Sex: 56 / M ADM Date: 05/20/22 Loc: ER Room: Type: [facility] ER Attending Dr: Copies to: Gopal Larsen [...] Flynn Bradley M.D.05/20/2022 11:02 AM Dictation Location: [place] [address] Transcribed By: [facility] 05/20/22 1102 Dictated By: Flynn Bradley II, MD 05/20/22 1059 Signed By: 05/20/22 1102 Normal [facility] XR foot RT 2Von 05-20-2022 XR foot RT 2V [facility] [place] [place] [address] XRay Report Signed Patient: Gopal Yates Jr MR#: [id number] : 1965 Acct:[id number] Age/Sex: 56 / M ADM Date: 05/20/22 Loc: ER Room: Type: [facility] ER Attending Dr: Copies to: Gopal Larsen [...] Flynn Bradley M.D.05/20/2022 11:04 AM Dictation Location: [place] [address] Transcribed By: [facility] 05/20/22 1104 Dictated By: Flynn Bradley II, MD 05/20/22 1102 Signed By: 05/20/22 1104 [facility] Aerobic cultureOrdered By: Hortencia Griggs on 05-19-2022 Bacteria identified Aer cx Nom (Unsp spec) 2 Days [facility] Bacteria identified Aer cx Nom (Unsp spec) 2 Days [facility] Superficial Wound Cultureon 05-19-2022 Superficial Wound Culture Rare normal skin efren 2 Days PERFORMED BY: [place] [address] PATHOLOGIST [employer] SESAR VAUGHN M.D. [facility] Comment on above: Performed By: #### C RP #### [address] Basophils Auto (Bld) [#/Vol] Ordered By: Cornelio Simon on 05-08-2022 Basophils (Bld) [#/Vol] 0.1 10*3/uL 0.0-0.2 [facility] Basophils/100 WBC Auto (Bld) Ordered By: Cornelio Simon on 05-08-2022 Basophils/100 WBC (Bld) 0.6 % . [facility] Creatinine and Glomerular fi ltration rate.predicted panel (S/P/Bld)Ordered By: Cornelio Simon on 05-08-2022 Creatinine [Mass/Vol] 5.34 mg/dL 0.64-1.27 [facility] Eosinophils Auto (Bld) [#/Vo l]Ordered By: Cornelio Simon on 05-08-2022 Eosinophils (Bld) [#/Vol] 0.1 10*3/uL 0.0-0.45 [facility] Eosinophils/100 WBC Auto (Bl d)Ordered By: Cornelio Simon on 05-08-2022 Eosinophils/100 WBC (Bld) 0.7 % . [facility] Erythrocyte distribution wid th Auto (RBC) [Ratio]Ordered By: Cornelio Simon on 05-08-2022 Erythrocyte distribution width (RBC) [Ratio] 14.3 % 12.0-14.8 [facility] Estimated glomerular filtrat ion rate (GFR) non- AmericanOrdered By: Cornelio Simon on 05-08-2022 GFR/1.73 sq M.predicted among non-blacks MDRD (S/P/Bld) [Vol rate/Area] 11 mL/Min [facility] Hematocrit Auto (Bld) [Volum e fraction]Ordered By: Cornelio Simon on 05-08-2022 Hematocrit (Bld) [Volume fraction] 27.0 % 38.8-50.0 [facility] Hemoglobin [Mass/volume] in BloodOrdered By: Cornelio Simon on 05-08-2022 Hemoglobin (Bld) [Mass/Vol] 9.1 g/dL 13.0-17.0 [facility] Leukocytes [#/volume] correc annalisa for nucleated erythrocytes in Blood by Automated counOrdered By: Cornelio Simon on 05-08-2022 WBC corrected for nucl RBC Auto (Bld) [#/Vol] 9.8 10*3/uL 4.1-10.5 [facility] Lymphocytes Auto (Bld) [#/Vo l]Ordered By: Cornelio Simon on 05-08-2022 Lymphocytes (Bld) [#/Vol] 0.4 10*3/uL 1.00-4.8 [facility] Lymphocytes/100 WBC Auto (Bl d)Ordered By: Cornelio Simon on 05-08-2022 Lymphocytes/100 WBC (Bld) 4.0 % . [facility] MCH Auto (RBC) [Entitic mass ]Ordered By: Cornelio Simon on 05-08-2022 MCH (RBC) [Entitic mass] 27.8 pg 27.5-35.2 [facility] MCHC Auto (RBC) [Mass/Vol]Or dered By: Cornelio Simon on 05-08-2022 MCHC (RBC) [Mass/Vol] 33.6 g/dL 32.5-35.6 [facility] MCV Auto (RBC) [Entitic vol] Ordered By: Cornelio Simon on 05-08-2022 MCV (RBC) [Entitic vol] 82.5 fL 83.5-101 [facility] Monocytes Auto (Bld) [#/Vol] Ordered By: Cornelio Simon on 05-08-2022 Monocytes (Bld) [#/Vol] 0.9 10*3/uL 0.0-0.8 [facility] Monocytes/100 WBC Auto (Bld) Ordered By: Cornelio Simon on 05-08-2022 Monocytes/100 WBC (Bld) 9.6 % . [facility] Neutrophils Auto (Bld) [#/Vo l]Ordered By: Cornelio Simon on 05-08-2022 Neutrophils (Bld) [#/Vol] 8.3 10*3/uL 1.8-7.7 [facility] Neutrophils/100 WBC Auto (Bl d)Ordered By: Cornelio Simon on 05-08-2022 Neutrophils/100 WBC (Bld) 85.1 % . [facility] No Panel InformationOrdered By: Cornelio Simon on 05-08-2022 Estimated GFR () 13 mL/Min [facility] Comment on above: GFR estimated refere nce range: According to KDOQI guidelines, <60 ml/min/1.73m2 is sufficient to diagnose a patient with chronic kidney disease. Pharmacy Creatinine Clearance (Chem 18.74 [facility] Nucleated erythrocytes [Pres ence] in Blood by Automated countOrdered By: Cornelio Simon on 05-08-2022 Nucleated RBC Auto Ql (Bld) 0.3 /100{WBC} 0-0.5 [facility] Platelet mean volume Auto (B ld) [Entitic vol]Ordered By: Cornelio Simon on 05-08-2022 Platelet mean volume (Bld) [Entitic vol] 9.2 fL 6.6-10.1 [facility] Platelets Auto (Bld) [#/Vol] Ordered By: Cornelio Simon on 05-08-2022 Platelets (Bld) [#/Vol] 168 10*3/uL 150-450 [facility] RBC Auto (Bld) [#/Vol]Ordere d By: Cornelio Simon on 05-08-2022 RBC (Bld) [#/Vol] 3.27 10*6/uL 3.90-5.60 [facility] Serum or plasma anion gap de terminationOrdered By: Cornelio Simon on 05-08-2022 Anion gap [Moles/Vol] 10.5 mmol/L 6.0-15.0 [facility] Serum or plasma calcium bertha urement (mass/volume)Ordered By: Cornelio Simon on 05-08-2022 Calcium [Mass/Vol] 7.3 mg/dL 8.2-10.2 [facility] Serum or plasma chloride neto surement (moles/volume)Ordered By: Cornelio Simon on 05-08-2022 Chloride [Moles/Vol] 104 mmol/L 95-114 [facility] Serum or plasma glucose bertha urement (mass/volume)Ordered By: Cornelio Simon on 05-08-2022 Glucose [Mass/Vol] 100 mg/dL 70-100 [facility] Comment on above: ADA recommended refe rence rangeRandom Glucose Reference Range is dependent on time and content of last meal. Glucose of more than 200 mg/dL in a nonstressed, ambulatory subject supports the diagnosis of Diabetes Mellitus. Serum or plasma potassium me asurement (moles/volume)Ordered By: Cornelio Simon on 05-08-2022 Potassium [Moles/Vol] 3.7 mmol/L 3.5-5.1 [facility] Serum or plasma sodium measu rement (moles/volume)Ordered By: Cornelio Simon on 05-08-2022 Sodium [Moles/Vol] 133 mmol/L 136-146 [facility] Serum or plasma total carbon dioxide measurement (moles/volume)Ordered By: Cornelio Simon on 05-08-2022 CO2 [Moles/Vol] 22.2 mmol/L 22.0-30.0 [facility] Serum or plasma urea nitroge n measurement (mass/volume)Ordered By: Cornelio Simon on 05-08-2022 Urea nitrogen [Mass/Vol] 80 mg/dL 9-23 [facility] WBC Auto (Bld) [#/Vol]Ordere d By: Cornelio Simon on 05-08-2022 WBC (Bld) [#/Vol] 9.8 10*3/uL 4.1-10.5 [facility] Aerobic cultureOrdered By: Hortencia Griggs on 05-07-2022 Bacteria identified Aer cx Nom (Unsp spec) No Growth 2 Days [facility] Bacteria identified Aer cx Nom (Unsp spec) No Growth 2 Days [facility] Bacteria identified Anaer cx Nom (Unsp spec)Ordered By: Eddy Griggs on 05-07-2022 Anaerobic Culture Bacteroides fragilis [facility] Anaerobic Culture Bacteroides fragilis [facility] Glucose Glucometer (BldC) [M ass/Vol]Ordered By: Cornelio Simon on 05-07-2022 Glucose [Mass/Vol] 193 mg/dL [facility] Comment on above: Random Glucose Refer ence Range is dependent on time and content of last meal. Glucose of more than 200 mg/dL in a nonstressed, ambulatory subject supports the diagnosis of Diabetes Mellitus. Gram stain for investigation of transfusion reactionOrdered By: Eddy Griggs on 05-07-2022 Microscopic observation Gram stain Nom (Unsp spec) [facility] Microscopic observation Gram stain Nom (Unsp spec) [facility] No Panel InformationOrdered By: Cornelio Simon on 05-07-2022 Bedside Glucose Comment Glu2: cleaned meter [facility] Activated partial thrombopla stin time (aPTT) in platelet poor plasma by coagulation aOrdered By: Cornelio Simon on 05-06-2022 aPTT Coag (PPP) [Time] 38.6 s 25.1-36.5 [facility] Albumin [Mass/volume] in Ser um or PlasmaOrdered By: Cornelio Simon on 05-06-2022 Albumin [Mass/Vol] 2.2 g/dL 3.2-5.[address] [facility] [address] biopsyOrdered By: Bruce kee on 05-06-2022 Transferrin [Mass/Vol] 89 mg/dL 180-380 [facility] Cholesterol [Mass/volume] in Serum or PlasmaOrdered By: Cornelio Simon on 05-06-2022 Cholesterol [Mass/Vol] 63 mg/dL 140-200 [facility] Comment on above: Chol less than 200 m g/dl low riskChol 201-239 mg/dl borderline riskChol 240 mg/dl and greater high risk Cholesterol in LDL Calc [Mas s/Vol]Ordered By: Cornelio Simon on 05-06-2022 Cholesterol in LDL [Mass/Vol] 28 mg/dL 0-100 [facility] Comment on above: LDL ATP III CLASSIFI CATIONLDL less than 100 mg/dL OptimalLDL 100-129 mg/dL Near or above optimalLDL 130-159 mg/dL Borderline highLDL 160-189 mg/dL HighLDL greater than 189 mg/dL Very high Cholesterol in VLDL Calc [Ma ss/Vol]Ordered By: Cornelio Simon on 05-06-2022 Cholesterol in VLDL [Mass/Vol] 16 mg/dL [facility] Ferritin [Mass/volume] in Se rum or PlasmaOrdered By: Yvonne Barboza on 05-06-2022 Ferritin [Mass/Vol] 426.1 ng/mL 23.9-336.2 [facility] Folate [Mass/volume] in Seru m or PlasmaOrdered By: Yvonne Barboza on 05-06-2022 Folate [Mass/Vol] 13.4 ng/mL >5.9 [facility] Comment on above: Folate reference ran ge: >5.9 ng/mlThe WHO technical consultation on folate and vitamin [id number] has determined that folate concentrations lessthan 4 ng/ml are considered deficient. Globulin Calc (S) [Mass/Vol] Ordered By: Cornelio Simon on 05-06-2022 Globulin (S) [Mass/Vol] 4.1 g/dL [facility] Glucose mean value [Mass/vol ume] in Blood Estimated from glycated hemoglobinOrdered By: Cornelio Simon on 05-06-2022 Average glucose Estimated from glycated hemoglobin (Bld) [Mass/Vol] 114 mg/dL [facility] Hemoglobin A1c percentageOrd ered By: Cornelio Simon on 05-06-2022 HbA1c (Bld) [Mass fraction] 5.6 % 4.3-5.6 [facility] Comment on above: Increased risk for d iabetes: 5.7 - 6.4diabetes: >6.4glycemic control for adults with diabetes: <7.0 Iron [Mass/volume] in Serum or PlasmaOrdered By: Yvonne Barboza on 05-06-2022 Iron [Mass/Vol] 15 ug/dL 40-160 [facility] Iron binding capacity [Mass/ volume] in Serum or PlasmaOrdered By: Yvonne Barboza on 05-06-2022 Iron binding capacity [Mass/Vol] 125 ug/dL 255-450 [facility] Iron saturation [Mass Fracti on] in Serum or PlasmaOrdered By: Yvonne Barboza on 05-06-2022 Iron saturation [Mass fraction] 12.0 % 20-50 [facility] Laboratory - Chemistry and C hemistry - challengeOrdered By: Yvonne Barboza on 05-06-2022 Cobalamin (Vitamin B12) [Mass/Vol] 373 pg/mL 180-914 [facility] Laboratory - CoagulationOrde red By: Cornelio Simon on 05-06-2022 PT Coag (PPP) [Time] 16.0 s 9.0-12.9 [facility] Platelet poor plasma interna tional normalized ratio (INR) by coagulation assay (relatOrdered By: Cornelio Simon on 05-06-2022 INR Coag (PPP) [Relative time] 1.4 {INR} [facility] Comment on above: INR Therapeutic Rang e [...] on 05-06-2022 Protein [Mass/Vol] 6.3 g/dL 6.1-7.9 [facility] Serum or plasma alanine hayes otransferase measurement without P-5'-P (enzymatic activiOrdered By: Cornelio Simon on 05-06-2022 ALT No additional P-5'-P [Catalytic activity/Vol] 23 U/L 10-60 [facility] Serum or plasma albumin/glob ulin mass ratioOrdered By: Cornelio Simon on 05-06-2022 Albumin/Globulin [Mass ratio] 0.5 {ratio} [facility] Serum or plasma alkaline brain sphatase measurement (enzymatic activity/volume)Ordered By: Cornelio Simon on 05-06-2022 ALP [Catalytic activity/Vol] 137 U/L 32-92 [facility] Serum or plasma aspartate am inotransferase measurement (enzymatic activity/volume)Ordered By: Cornelio Simon on 05-06-2022 AST [Catalytic activity/Vol] 28 U/L 10-42 [facility] Serum or plasma high density lipoprotein (HDL) cholesterol measurementOrdered By: Cornelio Simon on 05-06-2022 Cholesterol in HDL [Mass/Vol] 18 mg/dL 29-71 [facility] Comment on above: HDL CHOL ATP-III CLA SSIFICATION Cardiovascular RiskHDL > or equal to 60 mg/dL LOWHDL < 40 mg/dL HIGH Serum or plasma total biliru bin measurement (mass/volume)Ordered By: Cornelio Simon on 05-06-2022 Bilirubin [Mass/Vol] 1.0 mg/dL 0.3-1.2 [facility] Serum or plasma total choles terol/high density lipoprotein (HDL) cholesterol mass ratOrdered By: Cornelio Simon on 05-06-2022 Cholesterol.total/Nelly sterol in HDL [Mass ratio] 3.5 {ratio} <5.0 [facility] Triglyceride [Mass/volume] i n Serum or PlasmaOrdered By: Cornelio Simon on 05-06-2022 Triglyceride [Mass/Vol] 83 mg/dL 35-149 [facility] Comment on above: TRIG ATP III CLASSIF ICATIONTRIG less than 150 mg/dL NormalTRIG 150-199 mg/dL Borderline highTRIG 200-500 mg/dL High TRIG greater than 500 mg/dL Very highStandard traceable to the Center for Disease Conrtrol and Prevention (CDC) test method. Albumin [Mass/volume] in Ser um or PlasmaOrdered By: Lambert Blanc on 05-05-2022 Albumin [Mass/Vol] 2.6 g/dL 3.2-5.5 [facility] Bacterial blood cultureOrder ed By: Lambert Blanc on 05-05-2022 Bacteria identified Cx Nom (Bld) NO GROWTH 5 DAYS [facility] Bacteria identified Cx Nom (Bld) NO GROWTH 5 DAYS [facility] Bacterial susceptibility melo el MARCELO (Isol)on 05-05-2022 Microorganism identified Cx Nom (Unsp spec) [id number] Abnormal [facility] Comment on above: Order Comment: Speci men Type: MICROBIAL ISOLATEOrdering Facility: [facility] Address: [address] [place] [id number] Result Comment: Bact eroides fragilis group Specifically Bacteroides fragilis,as identified by client. Bacteroides spp. are intrinsically resistant to ampicillin, penicillin, and aminoglycosides. Performed By: #### 5 0545-3, 58945-6 ####[facility] [id number] [address] [place] Bacterial susceptibility melo el Strip (Isol)on 05-05-2022 Ampicillin+Sulbactam [Susc] 8 Susceptible Susceptible <=8 , Intermediate >8 , Resistant >16 [facility] Comment on above: Order Comment: Order ing Facility: [facility] Address: [address] [place] [address] Performed By: #### 5 0545-3, 49929-0 ####[facility] [id number] [place] [address] [place] Ertapenem MARCELO [Susc] 0.25 Susceptible Suscept ible <=4 , Intermediate >4 , Resistant >8 [facility] Comment on above: Order Comment: Order ing Facility: [facility] Address: [address] [place] [address] Performed By: #### 5 0545-3, 76256-0 ####[facility] [id number] [address] [place] metroNIDAZOLE [Susc] 0.125 Susceptible Suscept ible <=8 , Intermediate >8 , Resistant >16 [facility] Comment on above: Order Comment: Order ing Facility: [facility] Address: [address] [place] [address] Performed By: #### 5 0545-3, 55640-0 ####[facility] [id number] [place] [address] [place] Basophils Auto (Bld) [#/Vol] Ordered By: Lambert Blanc on 05-05-2022 Basophils (Bld) [#/Vol] 0.0 10*3/uL 0.0-0.2 [facility] Basophils/100 WBC Auto (Bld) Ordered By: Lambert Blanc on 05-05-2022 Basophils/100 WBC (Bld) 0.0 % . [facility] C reactive protein [Mass/vol ume] in Serum or PlasmaOrdered By: Lambert Blanc on 05-05-2022 CRP [Mass/Vol] 12.5 mg/dL 0.0-1.0 [facility] Creatinine and Glomerular fi ltration rate.predicted panel (S/P/Bld)Ordered By: Lambert Blanc on 05-05-2022 Creatinine [Mass/Vol] 6.13 mg/dL 0.64-1.27 [facility] Eosinophils Auto (Bld) [#/Vo l]Ordered By: Lambert Blanc on 05-05-2022 Eosinophils (Bld) [#/Vol] 0.0 10*3/uL 0.0-0.45 [facility] Eosinophils/100 WBC Auto (Bl d)Ordered By: Lambert Blanc on 05-05-2022 Eosinophils/100 WBC (Bld) 0.2 % . [facility] Erythrocyte distribution wid th Auto (RBC) [Ratio]Ordered By: Lambert Blanc on 05-05-2022 Erythrocyte distribution width (RBC) [Ratio] 14.2 % 12.0-14.8 [facility] Erythrocyte sedimentation ra te by Photometric methodOrdered By: Lambert Blanc on 05-05-2022 ESR Photometric method (Bld) [Velocity] 119 mm/hr 0-19 [facility] Estimated glomerular filtrat ion rate (GFR) non- AmericanOrdered By: Lambert Blanc on 05-05-2022 GFR/1.73 sq M.predicted among non-blacks MDRD (S/P/Bld) [Vol rate/Area] 10 mL/Min [facility] Globulin Calc (S) [Mass/Vol] Ordered By: Lambert Blanc on 05-05-2022 Globulin (S) [Mass/Vol] 4.6 g/dL [facility] Hematocrit Auto (Bld) [Volum e fraction]Ordered By: Lambert Blanc on 05-05-2022 Hematocrit (Bld) [Volume fraction] 31.8 % 38.8-50.0 [facility] Hemoglobin [Mass/volume] in BloodOrdered By: Lambert Blanc on 05-05-2022 Hemoglobin (Bld) [Mass/Vol] 10.4 g/dL 13.0-17.0 [facility] Leukocytes [#/volume] correc annalisa for nucleated erythrocytes in Blood by Automated counOrdered By: Lambert Blanc on 05-05-2022 WBC corrected for nucl RBC Auto (Bld) [#/Vol] 11.9 10*3/uL 4.1-10.5 [facility] Lymphocytes Auto (Bld) [#/Vo l]Ordered By: Lambert Blanc on 05-05-2022 Lymphocytes (Bld) [#/Vol] 0.4 10*3/uL 1.00-4.8 [facility] Lymphocytes/100 WBC Auto (Bl d)Ordered By: Lambert Blanc on 05-05-2022 Lymphocytes/100 WBC (Bld) 3.2 % . [facility] MCH Auto (RBC) [Entitic mass ]Ordered By: Lambert Blanc on 05-05-2022 MCH (RBC) [Entitic mass] 27.5 pg 27.5-35.2 [facility] MCHC Auto (RBC) [Mass/Vol]Or dered By: Lambert Blanc on 05-05-2022 MCHC (RBC) [Mass/Vol] 32.8 g/dL 32.5-35.6 [facility] MCV Auto (RBC) [Entitic vol] Ordered By: Lambert Blanc on 05-05-2022 MCV (RBC) [Entitic vol] 83.9 fL 83.5-101 [facility] Monocyte distribution width [Entitic volume] in Blood by AutomatedOrdered By: Lambert Blanc on 05-05-2022 Monocyte distribution width Auto (Bld) [Entitic vol] 18.26 % 0.00-20.00 [facility] Monocytes Auto (Bld) [#/Vol] Ordered By: Lambert Blanc on 05-05-2022 Monocytes (Bld) [#/Vol] 0.8 10*3/uL 0.0-0.8 [facility] Monocytes/100 WBC Auto (Bld) Ordered By: Lambert Blanc on 05-05-2022 Monocytes/100 WBC (Bld) 6.3 % . [facility] Neutrophils Auto (Bld) [#/Vo l]Ordered By: Lambert Blanc on 05-05-2022 Neutrophils (Bld) [#/Vol] 10.7 10*3/uL 1.8-7.7 [facility] Neutrophils/100 WBC Auto (Bl d)Ordered By: Lambert Blanc on 05-05-2022 Neutrophils/100 WBC (Bld) 90.3 % . [facility] No Panel InformationOrdered By: Lambert Blanc on 05-05-2022 Estimated GFR () 11 mL/Min [facility] Comment on above: GFR estimated refere nce range: According to KDOQI guidelines, <60 ml/min/1.73m2 is sufficient to diagnose a patient with chronic kidney disease. Pharmacy Creatinine Clearance (Chem 16.32 [facility] Nucleated erythrocytes [Pres ence] in Blood by Automated countOrdered By: Lambert Blanc on 05-05-2022 Nucleated RBC Auto Ql (Bld) 0.1 /100{WBC} 0-0.5 [facility] Platelet mean volume Auto (B ld) [Entitic vol]Ordered By: Lambert Blanc on 05-05-2022 Platelet mean volume (Bld) [Entitic vol] 9.6 fL 6.6-10.1 [facility] Platelets Auto (Bld) [#/Vol] Ordered By: Lambert Blanc on 05-05-2022 Platelets (Bld) [#/Vol] 189 10*3/uL 150-450 [facility] Protein [Mass/volume] in Ser um or PlasmaOrdered By: Lambert Blanc on 05-05-2022 Protein [Mass/Vol] 7.2 g/dL 6.1-7.9 [facility] RBC Auto (Bld) [#/Vol]Ordere d By: Lambert Blanc on 05-05-2022 RBC (Bld) [#/Vol] 3.79 10*6/uL 3.90-5.60 [facility] Serum or plasma alanine hayes otransferase measurement without P-5'-P (enzymatic activiOrdered By: Lambert Blanc on 05-05-2022 ALT No additional P-5'-P [Catalytic activity/Vol] 30 U/L 10-60 [facility] Serum or plasma albumin/glob ulin mass ratioOrdered By: Lambert Blanc on 05-05-2022 Albumin/Globulin [Mass ratio] 0.6 {ratio} [facility] Serum or plasma alkaline brain sphatase measurement (enzymatic activity/volume)Ordered By: Lambert Blanc on 05-05-2022 ALP [Catalytic activity/Vol] 167 U/L 32-92 [facility] Serum or plasma anion gap de terminationOrdered By: Lambert Blanc on 05-05-2022 Anion gap [Moles/Vol] 14.1 mmol/L 6.0-15.0 [facility] Serum or plasma aspartate am inotransferase measurement (enzymatic activity/volume)Ordered By: Lambert Blanc on 05-05-2022 AST [Catalytic activity/Vol] 45 U/L 10-42 [facility] Serum or plasma calcium bertha urement (mass/volume)Ordered By: Lambert Blanc on 05-05-2022 Calcium [Mass/Vol] 7.8 mg/dL 8.2-10.2 [facility] Serum or plasma chloride neto surement (moles/volume)Ordered By: Lambert Blanc on 05-05-2022 Chloride [Moles/Vol] 105 mmol/L 95-114 [facility] Serum or plasma glucose bertha urement (mass/volume)Ordered By: Lambert Blanc on 05-05-2022 Glucose [Mass/Vol] 106 mg/dL 70-100 [facility] Comment on above: ADA recommended refe rence rangeRandom Glucose Reference Range is dependent on time and content of last meal. Glucose of more than 200 mg/dL in a nonstressed, ambulatory subject supports the diagnosis of Diabetes Mellitus. Serum or plasma potassium me asurement (moles/volume)Ordered By: Lambert Blanc on 05-05-2022 Potassium [Moles/Vol] 4.1 mmol/L 3.5-5.1 [facility] Serum or plasma sodium measu rement (moles/volume)Ordered By: Lambert Blanc on 05-05-2022 Sodium [Moles/Vol] 132 mmol/L 136-146 [facility] Serum or plasma total biliru bin measurement (mass/volume)Ordered By: Lambert Blanc on 05-05-2022 Bilirubin [Mass/Vol] 0.9 mg/dL 0.3-1.2 [facility] Serum or plasma total carbon dioxide measurement (moles/volume)Ordered By: Lambert Blanc on 05-05-2022 CO2 [Moles/Vol] 17.0 mmol/L 22.0-30.0 [facility] Serum or plasma urea nitroge n measurement (mass/volume)Ordered By: Lambert Blanc on 05-05-2022 Urea nitrogen [Mass/Vol] 91 mg/dL 9- [facility] WBC Auto (Bld) [#/Vol]Ordere d By: Lambert Blanc on 05-05-2022 WBC (Bld) [#/Vol] 11.9 10*3/uL 4.1-10.5 [facility] CBC AUTO DIFFon 05-04-2022 BASO # 0.0 103/ul Normal 0.0-0.1 [facility] Comment on above: Performed By: #### V ITAD, FERR, FETIBC, B12FOL #### [facility] [address] [address] [address] Shilo Lam Basophils/100 WBC (Bld) 0.2 % Normal 0.2-2.0 [facility] Comment on above: Performed By: #### V ITAD, FERR, FETIBC, B12FOL #### [facility] [address] [address] [address] Shilo Lam EO # 0.0 103/ul Normal 0.0-0.7 [facility] Comment on above: Performed By: #### V ITAD, FERR, FETIBC, B12FOL #### [facility] [address] [address] [address] Shilo Lam Eosinophils/100 WBC (Bld) 0.1 % Critically low 0.9-7.0 [facility] Comment on above: Performed By: #### V ITAD, FERR, FETIBC, B12FOL #### [facility] [address] [address] [address] Shilo Lam Erythrocyte distribution width (RBC) [Ratio] 13.2 % Normal 11.0-15.0 [facility] Comment on above: Performed By: #### V ITAD, FERR, FETIBC, B12FOL #### [facility] [address] [place] [address] Dr. Shilo Lam Hematocrit (Bld) [Volume fraction] 32.2 % Critically low 42.0-54.0 [facility] Comment on above: Performed By: #### V ITAD, FERR, FETIBC, B12FOL #### [facility] [address] [place] [address] Dr. Shilo Lam Hemoglobin (Bld) [Mass/Vol] 10.6 g/dL Critically low 14.0-18.0 [facility] Comment on above: Performed By: #### V ITAD, FERR, FETIBC, B12FOL #### [facility] [address] [place] [address] Dr. Shilo Lam IG # 0.07 10e3/ul Critically high 0.00-0.03 [facility] Comment on above: Performed By: #### V ITAD, FERR, FETIBC, B12FOL #### [facility] [address] [place] [address] Dr. Shilo Lam IG % 0.5 % Normal 0.0-0.5 [facility] Comment on above: Performed By: #### V ITAD, FERR, FETIBC, B12FOL #### [facility] [address] [place] [address] Dr. Shilo Lam LYMPH # 0.4 103/ul Critically low 1.2-3.8 [facility] Comment on above: Performed By: #### V ITAD, FERR, FETIBC, B12FOL #### [facility] [address] [place] [address] Dr. Shilo Lam Lymphocytes/100 WBC (Bld) 2.6 % Critically low 20.5-60.0 [facility] Comment on above: Performed By: #### V ITAD, FERR, FETIBC, B12FOL #### [facility] [address] [place] [address] Dr. Shilo Lam MANUAL DIFF REQ NO Normal [facility] Comment on above: Performed By: #### V ITAD, FERR, FETIBC, B12FOL #### [facility] [address] [place] [address] Dr. Shilo Lam MCH (RBC) [Entitic mass] 27.7 pg Normal 25.9-34.0 [facility] Comment on above: Performed By: #### V ITAD, FERR, FETIBC, B12FOL #### [facility] [address] [place] [address] Dr. Shilo aLm MCHC (RBC) [Mass/Vol] 32.9 g/dL Normal 29.9-35.2 [facility] Comment on above: Performed By: #### V ITAD, FERR, FETIBC, B12FOL #### [facility] [address] [place] [address] Dr. Shilo Lam MCV (RBC) [Entitic vol] 84.1 fL Normal 80.0-94.0 [facility] Comment on above: Performed By: #### V ITAD, FERR, FETIBC, B12FOL #### [facility] [address] [place] [address] Dr. Shilo Lam MONO # 1.0 103/ul Critically high 0.3-0.8 [facility] Comment on above: Performed By: #### V ITAD, FERR, FETIBC, B12FOL #### [facility] [address] [place] [address] Dr. Shilo Lam Monocytes/100 WBC (Bld) 7.8 % Normal 1.7-12.0 [facility] Comment on above: Performed By: #### V ITAD, FERR, FETIBC, B12FOL #### [facility] [address] [place] [address] Dr. Shilo Lam NEUT # 11.9 103/ul Critically high 1.4-6.5 [facility] Comment on above: Performed By: #### V ITAD, FERR, FETIBC, B12FOL #### [facility] [address] [place] [address] Dr. Shilo Lam Neutrophils/100 WBC (Bld) 88.8 % Critically high 43.0-75.0 [facility] Comment on above: Performed By: #### V ITAD, FERR, FETIBC, B12FOL #### [facility] [address] [place] [address] Dr. Shilo Lam Platelet mean volume (Bld) [Entitic vol] 11.3 fL Normal 9.5-13.5 [facility] Comment on above: Performed By: #### V ITAD, FERR, FETIBC, B12FOL #### [facility] [address] [place] [address] Dr. Shilo Lam PLT 219 103/ul Normal 150-450 [facility] Comment on above: Performed By: #### V ITAD, FERR, FETIBC, B12FOL #### [facility] [address] [place] [address] Dr. Shilo Lam RBC 3.83 106/ul Critically low 4.70-6.10 [facility] Comment on above: Performed By: #### V ITAD, FERR, FETIBC, B12FOL #### [facility] [address] [place] [address] Dr. Shilo Lam WBC 13.4 103/ul Critically high 4.0-11.0 [facility] Comment on above: Performed By: #### V ITAD, FERR, FETIBC, B12FOL #### [facility] [address] [place] [address] Dr. Shilo Lam CRPon 05-04-2022 CRP 13.4 mg/dL Critically high <=1.0 [facility] Comment on above: Performed By: #### H H #### [facility] [address] [place] [address] Dr. Shilo Lam PROF 14(COMP METB)on 023 Albumin [Mass/Vol] 2.5 g/dL Critically low 3.4-5.0 [facility] Comment on above: Performed By: #### H H #### [facility] [address] [place] [address] Dr. Shilo Lam Albumin/Globulin [Mass ratio] 0.5 {ratio} Normal [facility] Comment on above: Performed By: #### H H #### [facility] [address] [place] [address] Dr. Shilo Lam ALP [Catalytic activity/Vol] 180 U/L Critically high 46-116 [facility] Comment on above: Performed By: #### H H #### [facility] [address] [place] [address] Dr. Shilo Lam ALT [Catalytic activity/Vol] 29 U/L Normal 16-63 [facility] Comment on above: Performed By: #### H H #### [facility] [address] [place] [address] Dr. Shilo Lam Anion gap [Moles/Vol] 21.5 mmol/L Normal [facility] Comment on above: Performed By: #### H H #### [facility] [address] [place] [address] Dr. Shilo Lam AST [Catalytic activity/Vol] 44 U/L Critically high 15-37 [facility] Comment on above: Performed By: #### H H #### [facility] [address] [place] [address] Dr. Shilo Lam Bilirubin [Mass/Vol] 0.7 mg/dL Normal 0.2-1.0 [facility] Comment on above: Performed By: #### H H #### [facility] [address] [place] [address] Dr. Shilo Lam Calcium [Mass/Vol] 8.1 mg/dL Critically low 8.5-10.1 [facility] Comment on above: Performed By: #### H H #### [facility] [address] [place] [address] Dr. Shilo Lam Chloride [Moles/Vol] 103 mmol/L Normal 98-107 [facility] Comment on above: Performed By: #### H H #### [facility] [address] [place] [address] Dr. Shilo Lam CO2 [Moles/Vol] 19.3 mmol/L Critically low 21.0-32.0 [facility] Comment on above: Performed By: #### H H #### [facility] [address] [address] [address] Shilo Lam Creatinine [Mass/Vol] 6.10 mg/dL Critically high 0.70-1.30 [facility] Comment on above: Performed By: #### H H #### [facility] [address] [address] [address] Shilo Lam EGFR-AF SAMOAN 12 mL/min/1.73m2 Critically low >=60 [facility] Comment on above: Performed By: #### H H #### [facility] [address] [address] [address] Shilo Lam EGFR-NON AF SAMOAN 10 mL/min/1.73m2 Critically low >=60 [facility] Comment on above: Performed By: #### H H #### [facility] [address] [address] [address] Shilo Lam Globulin (S) [Mass/Vol] 5.1 g/dL Normal T [facility] Comment on above: Performed By: #### H H #### [facility] [address] [address] [address] Shilo Lam Glucose [Mass/Vol] 95 mg/dL Normal 74-106 [facility] Comment on above: Performed By: #### H H #### [facility] [address] [address] [address] Shilo Lam Potassium [Moles/Vol] 4.8 mmol/L Normal 3.5-5.1 [facility] Comment on above: Performed By: #### H H #### [facility] [address] [address] [address] Shilo Lam Protein [Mass/Vol] 7.6 g/dL Normal 6.4-8.2 [facility] Comment on above: Performed By: #### H H #### [facility] [address] [address] [address] Shilo Lam Sodium [Moles/Vol] 139 mmol/L Normal 136-145 [facility] Comment on above: Performed By: #### H H #### [facility] [address] [place] [address] Dr. Shilo Lam Urea nitrogen [Mass/Vol] 91.0 mg/dL Critically high 7.0-18.0 [facility] Comment on above: Performed By: #### H H #### [facility] [address] [place] [address] Dr. Shilo Lam Urea nitrogen/Creatinine [Mass ratio] 14.9 mg/mg Normal [facility] Comment on above: Performed By: #### H H #### [facility] [address] [place] [address] Dr. [facility] mm/hr Critically high <=20 [facility] Comment on above: Performed By: #### S EDR #### [facility] [address] [place] [address] Dr. Shilo Lam PTH INTACTon 04-30-2022 PTH, Intact 81 pg/mL Critically high 15-65 [facility] Comment on above: Performed By: #### F REELIT #### [facility] [address] [place] [address] Dr. Shilo Lam HEMOGRAM AND PLATELon 2022 Hematocrit (Bld) [Volume fraction] 35.3 % Critically low 42.0-54.0 [facility] Comment on above: Performed By: #### H H #### [facility] [address] [place] [address] Dr. Shilo Lam Hemoglobin (Bld) [Mass/Vol] 11.0 g/dL Critically low 14.0-18.0 [facility] Comment on above: Performed By: #### H H #### [facility] [address] [place] [address] Dr. Shilo Lam MCH (RBC) [Entitic mass] 28.2 pg Normal 25.9-34.0 [facility] Comment on above: Performed By: #### H H #### [facility] [address] [place] [address] Dr. Shilo Lam MCHC (RBC) [Mass/Vol] 31.2 g/dL Normal 29.9-35.2 [facility] Comment on above: Performed By: #### H H #### [facility] [address] [place] [address] Dr. Shilo Lam MCV (RBC) [Entitic vol] 90.5 fL Normal 80.0-94.0 [facility] Comment on above: Performed By: #### H H #### [facility] [address] [place] [address] Dr. Shilo Lam PLT 161 103/ul Normal 150-450 [facility] Comment on above: Performed By: #### H H #### [facility] [address] [place] [address] Dr. Shilo Lam RBC 3.90 106/ul Critically low 4.70-6.10 [facility] Comment on above: Performed By: #### H H #### [facility] [address] [place] [address] Dr. Shilo Lam WBC 7.0 103/ul Normal 4.0-11.0 [facility] Comment on above: Performed By: #### H H #### [facility] [address] [place] [address] Dr. Shilo Lam PHOSPHORUSon 04-29-2022 Phosphate [Mass/Vol] 5.6 mg/dL Critically high 2.6-4.7 [facility] Comment on above: Performed By: #### F ALTONT #### [facility] [address] [place] [address] Dr. Shilo Lam PROF 14(COMP METB)on 023 Albumin [Mass/Vol] 2.6 g/dL Critically low 3.4-5.0 [facility] Comment on above: Performed By: #### F ALTONT #### [facility] [address] [place] [address] Dr. Shilo Lam Albumin/Globulin [Mass ratio] 0.5 {ratio} Normal [facility] Comment on above: Performed By: #### F ALTONT #### [facility] [address] [address] [address] Shilo Lam ALP [Catalytic activity/Vol] 190 U/L Critically high 46-116 [facility] Comment on above: Performed By: #### F REELIT #### [facility] [address] [address] [address] Shilo Lam ALT [Catalytic activity/Vol] 21 U/L Normal 16-63 [facility] Comment on above: Performed By: #### F REELIT #### [facility] [address] [address] [address] Shilo Lam Anion gap [Moles/Vol] 17.3 mmol/L Normal [facility] Comment on above: Performed By: #### F REELIT #### [facility] [address] [place] [address] Dr. Shilo Lam AST [Catalytic activity/Vol] 28 U/L Normal 15-37 [facility] Comment on above: Performed By: #### F REELIT #### [facility] [address] [place] [address] Dr. Shilo Lam Bilirubin [Mass/Vol] 0.6 mg/dL Normal 0.2-1.0 [facility] Comment on above: Performed By: #### F REELIT #### [facility] [address] [place] [address] Dr. Shilo Lam Calcium [Mass/Vol] 7.8 mg/dL Critically low 8.5-10.1 [facility] Comment on above: Performed By: #### F REELIT #### [facility] [address] [place] [address] Dr. Shilo Lam Chloride [Moles/Vol] 103 mmol/L Normal 98-107 [facility] Comment on above: Performed By: #### F REELIT #### [facility] [address] [address] [address] Shilo Lam CO2 [Moles/Vol] 21.5 mmol/L Normal 21.0-32.0 [facility] Comment on above: Performed By: #### F REELIT #### [facility] [facility] [address] [address] [address] Shilo Lam Creatinine [Mass/Vol] 5.86 mg/dL Critically high 0.70-1.30 [facility] Comment on above: Performed By: #### F REELIT #### [facility] [address] [address] [address] Shilo Lam EGFR-AF SAMOAN 12 mL/min/1.73m2 Critically low >=60 [facility] Comment on above: Performed By: #### F REELIT #### [facility] [address] [address] [address] Shilo Lam EGFR-NON AF SAMOAN 10 mL/min/1.73m2 Critically low >=60 [facility] Comment on above: Performed By: #### F REELIT #### [facility] [address] [address] [address] Shilo Lam Globulin (S) [Mass/Vol] 4.8 g/dL Normal [facility] Comment on above: Performed By: #### F REELIT #### [facility] [address] [address] [address] Shilo Lam Glucose [Mass/Vol] 107 mg/dL Critically high 74-106 [facility] Comment on above: Performed By: #### F REELIT #### [facility] [address] [address] [address] Shilo Lam Potassium [Moles/Vol] 3.8 mmol/L Normal 3.5-5.1 [facility] Comment on above: Performed By: #### F REELIT #### [facility] [address] [address] [address] Shilo Lam Protein [Mass/Vol] 7.4 g/dL Normal 6.4-8.2 [facility] Comment on above: Performed By: #### F REELIT #### [facility] [address] [address] [address] Shilo Lam Sodium [Moles/Vol] 138 mmol/L Normal 136-145 [facility] Comment on above: Performed By: #### F REELIT #### [facility] [address] [place] [address] Dr. Shilo Lam Urea nitrogen [Mass/Vol] 75.0 mg/dL Critically high 7.0-18.0 [facility] Comment on above: Performed By: #### F REELIT #### [facility] [address] [place] [address] Dr. Shilo Lam Urea nitrogen/Creatinine [Mass ratio] 12.8 mg/mg Normal [facility] Comment on above: Performed By: #### F KYLIELIT #### [facility] [address] [place] [address] Dr. Shilo Lam UA RANDOMon 04-29-2022 Bilirubin Ql (U) Negative Normal NEGATIVE [facility] Comment on above: Performed By: #### U A #### [facility] [address] [place] [address] Dr. Shilo Lam Clarity (U) CLEAR Normal CLEAR [facility] Comment on above: Performed By: #### U A #### [facility] [address] [place] [address] Dr. Shilo Lam Color (U) LT. YELLOW Normal YELLOW [facility] Comment on above: Performed By: #### U A #### [facility] [address] [place] [address] Dr. Shilo Lam Glucose Ql (U) Negative Normal NEGATIVE [facility] Comment on above: Performed By: #### U A #### [facility] [address] [place] [address] Dr. Shilo Lam Hemoglobin Ql (U) Negative Normal NEGATIVE [facility] Comment on above: Performed By: #### U A #### [facility] [address] [place] [address] Dr. Shilo Lam Ketones Ql (U) Negative Normal NEGATIVE [facility] Comment on above: Performed By: #### U A #### [facility] [address] [place] [address] Dr. Shilo Lam LEUKOCYTES Negative Normal NEGATIVE [facility] Comment on above: Performed By: #### U A #### [facility] [address] [place] [address] Dr. Shilo Lma Nitrite Ql (U) Negative Normal NEGATIVE [facility] Comment on above: Performed By: #### U A #### [facility] [address] [place] [address] Dr. Shilo Lam pH (U) 5.5 [pH] Normal 5-9 [facility] Comment on above: Performed By: #### U A #### [facility] [address] [place] [address] Dr. Shilo Lam SPEC GRAVITY 1.020 Normal 1.005-<=1.025 [facility] Comment on above: Performed By: #### U A #### [facility] [address] [place] [address] Dr. Shilo Lam UA PROTEIN 300 mg/dl Abnormal NEGATIVE/ TRACE [facility] Comment on above: Performed By: #### U A #### [facility] [address] [place] [address] Dr. Shilo Lam Urobilinogen Qn (U) 0.2 {Gama'U}/dL Normal 0.2 - 1. 0 [facility] Comment on above: Performed By: #### U A #### [facility] [address] [place] [address] Dr. Shilo Lam URINE T PROTEIN CREAT RATIOo n 04-29-2022 Protein (U) [Mass/Vol] 210.0 mg/dL Critically high <=12.0 [facility] Comment on above: Performed By: #### H H #### [facility] [address] [place] [address] Dr. Shilo Lam UR PROT CREAT RAT 5.36 Normal [facility] Comment on above: Performed By: #### H H #### [facility] [address] [place] [address] Dr. Shilo Lam URINE CREAT 39.20 mg/dL Normal 20.00-300.00 [facility] Comment on above: Performed By: #### H H #### [facility] [address] [place] [address] Dr. Shilo Lam VITAMIN D 25 OHon 04-29-2022 VIT D 25-OH 18.9 ng/mL Normal [facility] Comment on above: Performed By: #### F ALTONT #### [facility] [address] [place], [place] [address] Dr. Shilo aLm VIT D RANGES SEE BELOW Normal [facility] Comment on above: Result Comment: <20 ng/mL Vit D deficient 20 - <30 ng/mL Vit D insufficient 30 - 100 ng/mL Vit D sufficient >100 ng/mL Potential Toxicity Performed By: #### F ALTONT #### [facility] [address] [place] [address] [address] Shilo Lam CBC W Auto Differential pane l (Bld)on 04-16-2022 Basophils (Bld) [#/Vol] 0.03 10*3/uL Normal <0.11 [facility] Comment on above: Order Comment: Speci men Type: BLOOD SPECIMENOrdering Facility: [facility] Address: [address] [place] [address] Performed By: #### 5 7021-8 ####[facility] LAB[facility] [id number] [place] [address] Basophils/100 WBC (Bld) 0.5 % Normal [facility] Comment on above: Order Comment: Speci men Type: BLOOD SPECIMENOrdering Facility: [facility] Address: [address] [place] [address] Performed By: #### 5 7021-8 ####[facility] LABCLIA [id number] [place] [address] Differential cell count method Nom (Bld) Auto Normal [facility] Comment on above: Order Comment: Speci men Type: BLOOD SPECIMENOrdering Facility: [facility] Address: [address] [place] [address] Performed By: #### 5 7021-8 ####[facility] LABCLIA [id number] [place] [address] Eosinophils (Bld) [#/Vol] 0.08 10*3/uL Normal <0.46 [facility] Comment on above: Order Comment: Speci men Type: BLOOD SPECIMENOrdering Facility: [facility] Address: [address] [place] [address] Performed By: #### 5 7021-8 ####[facility] LABCLIA [id number] [place] [address] Eosinophils/100 WBC (Bld) 1.4 % Normal [facility] Comment on above: Order Comment: Speci men Type: BLOOD SPECIMENOrdering Facility: [facility] Address: [address] [place] [address] Performed By: #### 5 7021-8 ####[facility] LABCLIA [id number] [place] [address] Erythrocyte distribution width (RBC) [Ratio] 13.3 % Normal 11.5-15.0 [facility] Comment on above: Order Comment: Speci men Type: BLOOD SPECIMENOrdering Facility: [facility] Address: [address] [place] [address] Performed By: #### 5 7021-8 ####[facility] LABCLIA [id number] [place] [address] Hematocrit (Bld) [Volume fraction] 32.2 % Low 39.0-51.0 [facility] Comment on above: Order Comment: Speci men Type: BLOOD SPECIMENOrdering Facility: [facility] Address: [address] [place] [address] Performed By: #### 5 7021-8 ####[facility] LABCLIA [id number] [place] [address] Hemoglobin (Bld) [Mass/Vol] 10.5 g/dL Low 13.0-17.0 [facility] Comment on above: Order Comment: Speci men Type: BLOOD SPECIMENOrdering Facility: [facility] Address: [address] [place] [address] Performed By: #### 5 7021-8 ####[facility] LABCLIA [id number] [place] [address] Immature granulocytes (Bld) [#/Vol] 10*3/uL Normal <0.10 [facility] Comment on above: Order Comment: Speci men Type: BLOOD SPECIMENOrdering Facility: [facility] Address: [address] [place] [address] Performed By: #### 5 7021-8 ####[facility] LABCLIA [id number] [place] [address] Immature granulocytes/100 WBC (Bld) 0.2 % Normal [facility] Comment on above: Order Comment: Speci men Type: BLOOD SPECIMENOrdering Facility: [facility] Address: [address] [place] [address] Performed By: #### 5 7021-8 ####[facility] LABCLIA [id number] [place] [address] Lymphocytes (Bld) [#/Vol] 0.64 10*3/uL Low 1.00-4.00 [facility] Comment on above: Order Comment: Speci men Type: BLOOD SPECIMENOrdering Facility: [facility] Address: [address] [place] [address] Performed By: #### 5 7021-8 ####[facility] LABCLIA [id number] [place] [address] Lymphocytes/100 WBC (Bld) 11.0 % Normal [facility] Comment on above: Order Comment: Speci men Type: BLOOD SPECIMENOrdering Facility: [facility] Address: [address] [place] [address] Performed By: #### 5 7021-8 ####[facility] LABIA [id number] [place] [address] MCH (RBC) [Entitic mass] 29.0 pg Normal 26.0-34.0 [facility] Comment on above: Order Comment: Speci men Type: BLOOD SPECIMENOrdering Facility: [facility] Address: [address] [address] Performed By: #### 5 7021-8 ####[facility] LABCLIA [id number] [place] [address] MCHC (RBC) [Mass/Vol] 32.6 g/dL Normal 30.5-36.0 [facility] Comment on above: Order Comment: Speci men Type: BLOOD SPECIMENOrdering Facility: [facility] Address: [address] [place] [address] Performed By: #### 5 7021-8 ####[facility] LABIA [id number] [place] [address] MCV (RBC) [Entitic vol] 89.0 fL Normal 80.0-100.0 [facility] Comment on above: Order Comment: Speci men Type: BLOOD SPECIMENOrdering Facility: [facility] Address: [address] [place] [address] Performed By: #### 5 7021-8 ####[facility] LABIA [id number] [place] [address] Monocytes (Bld) [#/Vol] 0.62 10*3/uL Normal <0.87 [facility] Comment on above: Order Comment: Speci men Type: BLOOD SPECIMENOrdering Facility: [facility] Address: [address] [place] [address] Performed By: #### 5 7021-8 ####[facility] LABCLIA [id number] [place] [address] Monocytes/100 WBC (Bld) 10.7 % Normal [facility] Comment on above: Order Comment: Speci men Type: BLOOD SPECIMENOrdering Facility: [facility] Address: [address] [place] [address] Performed By: #### 5 7021-8 ####[facility] LABCLIA [id number] [place] [address] Neutrophils (Bld) [#/Vol] 4.44 10*3/uL Normal 1.45-7.50 [facility] Comment on above: Order Comment: Speci men Type: BLOOD SPECIMENOrdering Facility: [facility] Address: [address] [place] [address] Performed By: #### 5 7021-8 ####[facility] LABCLIA [id number] [place] [address] Neutrophils/100 WBC (Bld) 76.2 % Normal [facility] Comment on above: Order Comment: Speci men Type: BLOOD SPECIMENOrdering Facility: [facility] Address: [address] [place] [address] Performed By: #### 5 7021-8 ####[facility] LABCLIA [id number] [place] [address] Nucleated RBC (Bld) [#/Vol] 10*3/uL Normal <0.01 [facility] Comment on above: Order Comment: Speci men Type: BLOOD SPECIMENOrdering Facility: [facility] Address: [address] [place] [address] Performed By: #### 5 7021-8 ####[facility] LABCLIA [id number] [place] [address] Nucleated RBC/100 WBC (Bld) [Ratio] 0.0 /100 WBC Normal [facility] Comment on above: Order Comment: Speci men Type: BLOOD SPECIMENOrdering Facility: [facility] Address: [address] [address] Performed By: #### 5 7021-8 ####[facility] LABCLIA [id number] [place] [address] Platelet mean volume (Bld) [Entitic vol] 11.5 fL Normal 9.0-12.7 [facility] Comment on above: Order Comment: Speci men Type: BLOOD SPECIMENOrdering Facility: [facility] Address: [address] [address] Performed By: #### 5 7021-8 ####[facility] LABIA [id number] [place] [address] Platelets (Bld) [#/Vol] 136 10*3/uL Low 150-400 [facility] Comment on above: Order Comment: Speci men Type: BLOOD SPECIMENOrdering Facility: [facility] Address: [address] [address] Performed By: #### 5 7021-8 ####[facility] LABIA [id number] [place] [address] RBC (Bld) [#/Vol] 3.62 10*6/uL Low 4.20-6.00 [facility] Comment on above: Order Comment: Speci men Type: BLOOD SPECIMENOrdering Facility: [facility] Address: [address] [address] Performed By: #### 5 7021-8 ####[facility] [id number] [place] [address] WBC (Bld) [#/Vol] 5.82 10*3/uL Normal 3.70-11.00 [facility] Comment on above: Order Comment: Speci men Type: BLOOD SPECIMENOrdering Facility: [facility] Address: [address] [place] [address] Performed By: #### 5 7021-8 ####[facility] [id number] [place] [address] CNOVSPon 04-16-2022 CNOVSP Visit (SP) Office ([place]) GOPAL YATES JR ([id number]) 1965 M Date Time Provider Department 04/16/22 3:30 PM MONIK DOTSON During your visit today, we recorded the following information about you: Temperature Pulse Respiration Blood pressure 97 degrees 59/minute 18/minute 136/61 Weight Height 89.8 kg 1.93 m Monik Dotson APRN.CNP 04/16/2022 3:56 PM Signed NAME: Gopal Yates CLINIC NO.: [id number] DATE OF SERVICE: April 16, 2022 (Imer) Some elements in this clinic note that are critical to medical decision making have been carefully reviewed and included from a prior clinic note dated: February 18, 2022. (Dr. Rojas) Referring Provider: Dr. Douglas Juárez Additional Clinicians involved in Gopal Yates JR's care: DIAGNOSIS: Elevated [place]: Lambda light chains CKD induced anemia ASSESSMENT: [...] bruising. 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 Overall, he is doing [...] completed 5 doses of IV iron at [facility]. Initial Visit, October 02, 2021: Gopal Yates [...] Unknown MEDICA (more content not included)... Normal [facility] Comprehensive metabolic 2000 panelon 04-16-2022 Albumin [Mass/Vol] 3.7 g/dL Low 3.9-4.9 [facility] Comment on above: Order Comment: Speci men Type: BLOOD SPECIMEN [facility] Address: [address] [place] [id number] Performed By: #### 2 4323-8 #### [facility] CLIA [id number] [address] [place] [address] ALP [Catalytic activity/Vol] 195 U/L High 38-113 [facility] Comment on above: Order Comment: Speci men Type: BLOOD SPECIMEN [facility] Address: [address] [address] Performed By: #### 2 4323-8 #### [facility] CLIA [id number] [address] [place] [address] ALT [Catalytic activity/Vol] 20 U/L Normal 10-54 [facility] Comment on above: Order Comment: Speci men Type: BLOOD SPECIMEN [facility] Address: [address] [address] Performed By: #### 2 4323-8 #### [facility] CLIA [id number] [address] [place] [address] Anion gap [Moles/Vol] 13 mmol/L Normal 9-18 [facility] Comment on above: Order Comment: Speci men Type: BLOOD SPECIMEN [facility] Address: [address] [address] Performed By: #### 2 4323-8 #### [facility] CLIA [id number] [address] [place] [address] AST [Catalytic activity/Vol] 16 U/L Normal 14-40 [facility] Comment on above: Order Comment: Speci men Type: BLOOD SPECIMEN [facility] Address: [address] [address] Performed By: #### 2 4323-8 #### [facility] CLIA [id number] [address] [place] [address] Bilirubin [Mass/Vol] 0.5 mg/dL Normal 0.2-1.3 [facility] Comment on above: Order Comment: Speci men Type: BLOOD SPECIMEN [facility] Address: [address] [address] Performed By: #### 2 4323-8 #### [facility] CLIA [id number] [address] [place] [address] Calcium [Mass/Vol] 8.1 mg/dL Low 8.5-10.2 [facility] Comment on above: Order Comment: Speci men Type: BLOOD SPECIMEN [facility] Address: [address] [address] Performed By: #### 2 4323-8 #### [facility] CLIA [id number] [address] [place] [address] Chloride [Moles/Vol] 112 mmol/L High 97-105 [facility] Comment on above: Order Comment: Speci men Type: BLOOD SPECIMEN [facility] Address: [address] [place] [address] Performed By: #### 2 4323-8 #### [facility] CLIA [id number] [address] [place] [address] CO2 [Moles/Vol] 17 mmol/L Low 22-30 [facility] Comment on above: Order Comment: Speci men Type: BLOOD SPECIMEN [facility] Address: [address] [place] [address] Performed By: #### 2 4323-8 #### [facility] CLIA [id number] [address] [place] [address] Creatinine [Mass/Vol] 4.53 mg/dL High 0.73-1.22 [facility] Comment on above: Order Comment: Speci men Type: BLOOD SPECIMEN [facility] Address: [address] [address] Performed By: #### 2 4323-8 #### [facility] CLIA [id number] [address] [place] [address] ESTIMATED GLOMERULAR FILTRATION RATE 14 mL/min/1.73m??? Low >=60 [facility] Comment on above: Order Comment: Speci men Type: BLOOD SPECIMEN [facility]: [facility] Address: [address] [phone] Result Comment: Trixie mated Glomerular Filtration Rate [...] GFR. Performed By: #### 2 4323-8 #### [facility] CLIA [id number] [address] [place] [address] Glucose [Mass/Vol] 146 mg/dL High 74-99 [facility] Comment on above: Order Comment: Fabi mcdonnell Type: BLOOD SPECIMEN [facility] Address: [address] [address] Result Comment: The [place] [employer] (ADA) provides guidance for cutoff [...] Standards of Medical Care in Diabetes 2016, [place] [employer]. Diabetes Care. 2016.39(Suppl 1). Performed By: #### 2 4323-8 #### [facility] CLIA [id number] [address] [place] [address] Potassium [Moles/Vol] 4.2 mmol/L Normal 3.7-5.1 [facility] Comment on above: Order Comment: Fabi mcdonnell Type: BLOOD SPECIMEN [facility] Address: [address] [phone] Performed By: #### 2 4323-8 #### [facility] CLIA [id number] [address] [place] [address] [place] [address] Protein [Mass/Vol] 7.0 g/dL Normal 6.3-8.0 [facility] Comment on above: Order Comment: Speci men Type: BLOOD SPECIMEN [facility] Address: [address] [address] Performed By: #### 2 4323-8 #### [facility] CLIA [id number] [address] [place] [address] Sodium [Moles/Vol] 142 mmol/L Normal 136-144 [facility] Comment on above: Order Comment: Speci men Type: BLOOD SPECIMEN [facility] Address: [address] [address] Performed By: #### 2 4323-8 #### [facility] CLIA [id number] [address] [place] [address] Urea nitrogen [Mass/Vol] 81 mg/dL High 9-24 [facility] Comment on above: Order Comment: Speci men Type: BLOOD SPECIMEN [facility] Address: [address] [address] Performed By: #### 2 4323-8 #### [facility] CLIA [id number] [address] [place] [address] CBC W Auto Differential pane l (Bld)on 03-18-2022 Basophils (Bld) [#/Vol] 10*3/uL Normal <0.11 [facility] Comment on above: Order Comment: Speci men Type: BLOOD SPECIMENOrdering Facility: [facility] Address: [address] [address] Performed By: #### 5 7021-8 ####[facility] LABCLIA [id number] [place] [address] Basophils/100 WBC (Bld) 0.4 % Normal [facility] Comment on above: Order Comment: Speci men Type: BLOOD SPECIMENOrdering Facility: [facility] Address: [address] [place] [address] Performed By: #### 5 7021-8 ####[facility] LABCLIA [id number] [place] [address] Differential cell count method Nom (Bld) Auto Normal [facility] Comment on above: Order Comment: Speci men Type: BLOOD SPECIMENOrdering Facility: [facility] Address: [address] [place] [address] Performed By: #### 5 7021-8 ####[facility] LABCLIA [id number] [place] [address] Eosinophils (Bld) [#/Vol] 0.11 10*3/uL Normal <0.46 [facility] Comment on above: Order Comment: Speci men Type: BLOOD SPECIMENOrdering Facility: [facility] Address: [address] [place] [address] Performed By: #### 5 7021-8 ####[facility] LABCLIA [id number] [place] [address] Eosinophils/100 WBC (Bld) 2.2 % Normal [facility] Comment on above: Order Comment: Speci men Type: BLOOD SPECIMENOrdering Facility: [facility] Address: [address] [place] [address] Performed By: #### 5 7021-8 ####[facility] LABCLIA [id number] [place] [address] Erythrocyte distribution width (RBC) [Ratio] 14.6 % Normal 11.5-15.0 [facility] Comment on above: Order Comment: Speci men Type: BLOOD SPECIMENOrdering Facility: [facility] Address: [address] [place] [address] Performed By: #### 5 7021-8 ####[facility] LABCLIA [id number] [place] [address] Hematocrit (Bld) [Volume fraction] 31.4 % Low 39.0-51.0 [facility] Comment on above: Order Comment: Speci men Type: BLOOD SPECIMENOrdering Facility: [facility] Address: [address] [address] Performed By: #### 5 7021-8 ####[facility] LABCLIA [id number] [place] [address] Hemoglobin (Bld) [Mass/Vol] 10.0 g/dL Low 13.0-17.0 [facility] Comment on above: Order Comment: Speci men Type: BLOOD SPECIMENOrdering Facility: [facility] Address: [address] [address] Performed By: #### 5 7021-8 ####[facility] LABCLIA [id number] [place] [address] Immature granulocytes (Bld) [#/Vol] 10*3/uL Normal <0.10 [facility] Comment on above: Order Comment: Speci men Type: BLOOD SPECIMENOrdering Facility: [facility] Address: [address] [address] Performed By: #### 5 7021-8 ####[facility] LABCLIA [id number] [place] [address] Immature granulocytes/100 WBC (Bld) 0.2 % Normal [facility] Comment on above: Order Comment: Speci men Type: BLOOD SPECIMENOrdering Facility: [facility] Address: [address] [address] Performed By: #### 5 7021-8 ####[facility] LABCLIA [id number] [place] [address] Lymphocytes (Bld) [#/Vol] 0.68 10*3/uL Low 1.00-4.00 [facility] Comment on above: Order Comment: Speci men Type: BLOOD SPECIMENOrdering Facility: [facility] Address: [address] [address] Performed By: #### 5 7021-8 ####[facility] LABCLIA [id number] [place] [address] Lymphocytes/100 WBC (Bld) 13.4 % Normal [facility] Comment on above: Order Comment: Speci men Type: BLOOD SPECIMENOrdering Facility: [facility] Address: [address] [place] [address] Performed By: #### 5 7021-8 ####[facility] LABCLIA [id number] [place] [address] MCH (RBC) [Entitic mass] 28.4 pg Normal 26.0-34.0 [facility] Comment on above: Order Comment: Speci men Type: BLOOD SPECIMENOrdering Facility: [facility] Address: [address] [place] [address] Performed By: #### 5 7021-8 ####[facility] LABCLIA [id number] [place] [address] MCHC (RBC) [Mass/Vol] 31.8 g/dL Normal 30.5-36.0 [facility] Comment on above: Order Comment: Speci men Type: BLOOD SPECIMENOrdering Facility: [facility] Address: [address] [place] [address] Performed By: #### 5 7021-8 ####[facility] LABCLIA [id number] [place] [address] MCV (RBC) [Entitic vol] 89.2 fL Normal 80.0-100.0 [facility] Comment on above: Order Comment: Speci men Type: BLOOD SPECIMENOrdering Facility: [facility] Address: [address] [place] [address] Performed By: #### 5 7021-8 ####[facility] LABCLIA [id number] [place] [address] Monocytes (Bld) [#/Vol] 0.67 10*3/uL Normal <0.87 [facility] Comment on above: Order Comment: Speci men Type: BLOOD SPECIMENOrdering Facility: [facility] Address: [address] [address] Performed By: #### 5 7021-8 ####[facility] LABCLIA [id number] [place] [address] Monocytes/100 WBC (Bld) 13.2 % Normal [facility] Comment on above: Order Comment: Speci men Type: BLOOD SPECIMENOrdering Facility: [facility] Address: [address] [address] Performed By: #### 5 7021-8 ####[facility] LABCLIA [id number] [place] [address] Neutrophils (Bld) [#/Vol] 3.60 10*3/uL Normal 1.45-7.50 [facility] Comment on above: Order Comment: Speci men Type: BLOOD SPECIMENOrdering Facility: [facility] Address: [address] [address] Performed By: #### 5 7021-8 ####[facility] LABIA [id number] [place] [address] Neutrophils/100 WBC (Bld) 70.6 % Normal [facility] Comment on above: Order Comment: Speci men Type: BLOOD SPECIMENOrdering Facility: [facility] Address: [address] [address] Performed By: #### 5 7021-8 ####[facility] LABCLIA [id number] [place] [address] Nucleated RBC (Bld) [#/Vol] 10*3/uL Normal <0.01 [facility] Comment on above: Order Comment: Speci men Type: BLOOD SPECIMENOrdering Facility: [facility] Address: [address] [place] [address] Performed By: #### 5 7021-8 ####[facility] LABCLIA [id number] [place] [address] Nucleated RBC/100 WBC (Bld) [Ratio] 0.0 /100 WBC Normal [facility] Comment on above: Order Comment: Speci men Type: BLOOD SPECIMENOrdering Facility: [facility] Address: [address] [place] [address] Performed By: #### 5 7021-8 ####[facility] LABCLIA [id number] [place] [address] Platelet mean volume (Bld) [Entitic vol] 10.7 fL Normal 9.0-12.7 [facility] Comment on above: Order Comment: Speci men Type: BLOOD SPECIMENOrdering Facility: [facility] Address: [address] [place] [address] Performed By: #### 5 7021-8 ####[facility] LABCLIA [id number] [place] [address] Platelets (Bld) [#/Vol] 130 10*3/uL Low 150-400 [facility] Comment on above: Order Comment: Speci men Type: BLOOD SPECIMENOrdering Facility: [facility] Address: [address] [place] [address] Performed By: #### 5 7021-8 ####[facility] LABCLIA [id number] [place] [address] RBC (Bld) [#/Vol] 3.52 10*6/uL Low 4.20-6.00 [facility] Comment on above: Order Comment: Speci men Type: BLOOD SPECIMENOrdering Facility: [facility] Address: [address] [place] [address] Performed By: #### 5 7021-8 ####[facility] LABIA [id number] [place] [address] WBC (Bld) [#/Vol] 5.09 10*3/uL Normal 3.70-11.00 [facility] Comment on above: Order Comment: Speci men Type: BLOOD SPECIMENOrdering Facility: [facility] Address: [address] [address] Performed By: #### 5 7021-8 ####[facility] LABCLIA [id number] [place] [address] Comprehensive metabolic 2000 panelon 03-18-2022 Albumin [Mass/Vol] 3.5 g/dL Low 3.9-4.9 [facility] Comment on above: Order Comment: Speci men Type: BLOOD SPECIMENOrdering Facility: [facility] Address: [address] [address] Performed By: #### 2 4323-8 ####[facility] LABCLIA [id number] [place] [address] ALP [Catalytic activity/Vol] 154 U/L High 38-113 [facility] Comment on above: Order Comment: Speci men Type: BLOOD SPECIMENOrdering Facility: [facility] Address: [address] [place] [address] Performed By: #### 2 4323-8 ####[facility] LABCLIA [id number] [place] [address] ALT [Catalytic activity/Vol] 15 U/L Normal 10-54 [facility] Comment on above: Order Comment: Speci men Type: BLOOD SPECIMENOrdering Facility: [facility] Address: [address] [address] Performed By: #### 2 4323-8 ####[facility] LABCLIA [id number] [place] [address] Anion gap [Moles/Vol] 11 mmol/L Normal 9-18 [facility] Comment on above: Order Comment: Speci men Type: BLOOD SPECIMENOrdering Facility: [facility] Address: [address] [address] Performed By: #### 2 4323-8 ####[facility] LABCLIA [id number] [place] [address] AST [Catalytic activity/Vol] 16 U/L Normal 14-40 [facility] Comment on above: Order Comment: Speci men Type: BLOOD SPECIMENOrdering Facility: [facility] Address: [address] [address] Performed By: #### 2 4323-8 ####[facility] LABCLIA [id number] [place] [address] Bilirubin [Mass/Vol] 0.5 mg/dL Normal 0.2-1.3 [facility] Comment on above: Order Comment: Speci men Type: BLOOD SPECIMENOrdering Facility: [facility] Address: [address] [place] [address] Performed By: #### 2 4323-8 ####[facility] LABCLIA [id number] [place] [address] Calcium [Mass/Vol] 8.5 mg/dL Normal 8.5-10.2 [facility] Comment on above: Order Comment: Speci men Type: BLOOD SPECIMENOrdering Facility: [facility] Address: [address] [address] Performed By: #### 2 4323-8 ####[facility] LABCLIA [id number] [place] [address] Chloride [Moles/Vol] 114 mmol/L High 97-105 [facility] Comment on above: Order Comment: Speci men Type: BLOOD SPECIMENOrdering Facility: [facility] Address: [address] [address] Performed By: #### 2 4323-8 ####[facility] LABCLIA [id number] [place] [address] CO2 [Moles/Vol] 18 mmol/L Low 22-30 [facility] Comment on above: Order Comment: Speci men Type: BLOOD SPECIMENOrdering Facility: [facility] Address: [address] [address] Performed By: #### 2 4323-8 ####[facility] LABCLIA [id number] [place] [address] Creatinine [Mass/Vol] 4.59 mg/dL High 0.73-1.22 [facility] Comment on above: Order Comment: Fabi kecia Type: BLOOD SPECIMENOrdering Facility: [facility] Address: [address] [place] [address] Performed By: #### 2 4323-8 ####[facility] LABCLIA [id number] [place] [address] ESTIMATED GLOMERULAR FILTRATION RATE 14 mL/min/1.73m??? Low >=60 [facility] Comment on above: Order Comment: Fabi mcdonnell Type: BLOOD SPECIMENOrdering Facility: [facility] Address: [address] [place] [address] Result Comment: Trixie mated Glomerular Filtration Rate [...] actual GFR. Performed By: #### 2 4323-8 ####[facility] LABCLIA [id number] [place] [address] Glucose [Mass/Vol] 86 mg/dL Normal 74-99 [facility] Comment on above: Order Comment: Fabi kecia Type: BLOOD SPECIMENOrdering Facility: [facility] Address: [address] [place] [address] Result Comment: The [place] [employer] (ADA) provides guidance for cutoff [...] Standards of Medical Care in Diabetes 2016, [place] [employer]. Diabetes Care. 2016.39(Suppl 1). Performed By: #### 2 4323-8 ####[facility] LABCLIA [id number] [place] [address] Potassium [Moles/Vol] 4.4 mmol/L Normal 3.7-5.1 [facility] Comment on above: Order Comment: Speci men Type: BLOOD SPECIMENOrdering Facility: [facility] Address: [address] [address] Performed By: #### 2 4323-8 ####[facility] LABCLIA [id number] [place] [address] Protein [Mass/Vol] 6.8 g/dL Normal 6.3-8.0 [facility] Comment on above: Order Comment: Speci men Type: BLOOD SPECIMENOrdering Facility: [facility] Address: [address] [address] Performed By: #### 2 4323-8 ####[facility] LABCLIA [id number] [place] [address] Sodium [Moles/Vol] 143 mmol/L Normal 136-144 [facility] Comment on above: Order Comment: Speci men Type: BLOOD SPECIMENOrdering Facility: [facility] Address: [address] [address] Performed By: #### 2 4323-8 ####[facility] LABCLIA [id number] [place] [address] Urea nitrogen [Mass/Vol] 74 mg/dL High 9-24 [facility] Comment on above: Order Comment: Speci men Type: BLOOD SPECIMENOrdering Facility: [facility] Address: [address] [address] Performed By: #### 2 4323-8 ####[facility] LABCLIA [id number] [place] [address] Ferritin SerPl-mCncon 2021 Ferritin [Mass/Vol] 508.0 ng/mL Normal 30.3-565.7 [facility] Comment on above: Order Comment: Speci men Type: BLOOD SPECIMENOrdering Facility: [facility] Address: [address] [place] [address] Performed By: #### 2 284-8, 2276-4, 2131-9, 56133-2 ####[facility] LABCLIA [id number] [place] [address] [place] Folate SerPl-mCncon 03-18-20 Folate [Mass/Vol] 8.1 ng/mL Normal >4.7 [facility] Comment on above: Order Comment: Speci men Type: BLOOD SPECIMENOrdering Facility: [facility] Address: [address] [place] [address] Performed By: #### 2 284-8, 2276-4, 2131-9, 36536-4 ####[facility] LABCLIA [id number] [place] [address] [place] Iron and Iron binding capaci panelon 03-18-2022 Iron [Mass/Vol] 63 ug/dL Normal 41-186 [facility] Comment on above: Order Comment: Speci men Type: BLOOD SPECIMENOrdering Facility: [facility] Address: [address] [place] [address] Performed By: #### 2 284-8, 2276-4, 2131-9, 41580-2 ####[facility] LABCLIA [id number] [place] [address] [place] Iron binding capacity [Mass/Vol] 204 ug/dL Low 232-386 [facility] Comment on above: Order Comment: Speci men Type: BLOOD SPECIMENOrdering Facility: [facility] Address: [address] [address] Performed By: #### 2 284-8, 2276-4, 9, 51303-5 ####[facility] LABIA [id number] [place] [address] [place] Iron/TIBC [Molar ratio] 30.9 % Normal 15.0-57.0 [facility] Comment on above: Order Comment: Speci men Type: BLOOD SPECIMENOrdering Facility: [facility] Address: [address] [address] Performed By: #### 2 284-8, 6-4, 9, 26616-8 ####[facility] LABIA [id number] [place] [address] [place] PTH INTACTon 03-18-2022 PTH, Intact 68 pg/mL Critically high 15-65 [facility] Comment on above: Performed By: #### H H #### [facility] [address] [place] [address] Dr. Shilo Lam Vit B12 SerPl-ncon 022 Cobalamin (Vitamin B12) [Mass/Vol] 670 pg/mL Normal 232-1245 [facility] Comment on above: Order Comment: Speci men Type: BLOOD SPECIMENOrdering Facility: [facility] Address: [address] [address] Performed By: #### 2 284-8, 6-4, 9, 43736-9 ####[facility] LABCLIA [id number] [place] [address] [place] FERRITINon 03-17-2022 Ferritin [Mass/Vol] 493.0 ng/mL Critically high 26.0-388.0 [facility] Comment on above: Performed By: #### V ITAD, FERR, FETIBC, B12FOL #### [facility] [address] [address] [address] Shilo Lam HEMOGRAM AND PLATELon 2021 Hematocrit (Bld) [Volume fraction] 32.7 % Critically low 42.0-54.0 [facility] Comment on above: Performed By: #### V ITAD, FERR, FETIBC, B12FOL #### [facility] [address] [place] [address] Dr. Shilo Lam Hemoglobin (Bld) [Mass/Vol] 10.7 g/dL Critically low 14.0-18.0 [facility] Comment on above: Performed By: #### V ITAD, FERR, FETIBC, B12FOL #### [facility] [address] [place] [address] Dr. Shilo Lam MCH (RBC) [Entitic mass] 28.7 pg Normal 25.9-34.0 [facility] Comment on above: Performed By: #### V ITAD, FERR, FETIBC, B12FOL #### [facility] [address] [place] [address] Dr. Shilo Lam MCHC (RBC) [Mass/Vol] 32.7 g/dL Normal 29.9-35.2 [facility] Comment on above: Performed By: #### V ITAD, FERR, FETIBC, B12FOL #### [facility] [address] [place] [address] Dr. Shilo Lam MCV (RBC) [Entitic vol] 87.7 fL Normal 80.0-94.0 [facility] Comment on above: Performed By: #### V ITAD, FERR, FETIBC, B12FOL #### [facility] [address] [place] [address] Dr. Shilo Lam PLT 157 103/ul Normal 150-450 [facility] Comment on above: Performed By: #### V ITAD, FERR, FETIBC, B12FOL #### [facility] [address] [place] [address] Dr. Shilo Lam RBC 3.73 106/ul Critically low 4.70-6.10 [facility] Comment on above: Performed By: #### V ITAD, FERR, FETIBC, B12FOL #### [facility] [address] [place] [address] Dr. Shilo Lam WBC 5.6 103/ul Normal 4.0-11.0 [facility] Comment on above: Performed By: #### V ITAD, FERR, FETIBC, B12FOL #### [facility] [address] [place] [address] Dr. Shilo Lam IRON AND TIBCon 03-17-2022 % SATURATION 38.4 % Normal [facility] Comment on above: Performed By: #### V ITAD, FERR, FETIBC, B12FOL #### [facility] [address] [place] [address] Dr. Shilo Lam Iron [Mass/Vol] 63.0 ug/dL Critically low 65.0-175.0 [facility] Comment on above: Performed By: #### V ITAD, FERR, FETIBC, B12FOL #### [facility] [address] [place] [address] Dr. Shilo Lam TIBC DIRECT 164.0 ug/dL Critically low 250.0-450.0 [facility] Comment on above: Performed By: #### V ITAD, FERR, FETIBC, B12FOL #### [facility] [address] [place] [address] Dr. Shilo Lam MAGNESIUMon 03-17-2022 Magnesium [Mass/Vol] 2.0 mg/dL Normal 1.8-2.4 [facility] Comment on above: Performed By: #### F ALTONT #### [facility] [address] [place] [address] Dr. Shilo Lam PROF 14(COMP METB)on 022 Albumin [Mass/Vol] 2.9 g/dL Critically low 3.4-5.0 [facility] Comment on above: Performed By: #### F ALTONT #### [facility] [address] [place] [address] Dr. Shilo Lam Albumin/Globulin [Mass ratio] 0.6 {ratio} Normal [facility] Comment on above: Performed By: #### F ALTONT #### [facility] [address] [address] [address] Shilo Lam ALP [Catalytic activity/Vol] 152 U/L Critically high 46-116 [facility] Comment on above: Performed By: #### F REELIT #### [facility] [address] [address] [address] Shilo Lam ALT [Catalytic activity/Vol] 19 U/L Normal 16-63 [facility] Comment on above: Performed By: #### F REELIT #### [facility] [address] [address] [address] Shilo Lam Anion gap [Moles/Vol] 15.1 mmol/L Normal [facility] Comment on above: Performed By: #### F REELIT #### [facility] [address] [address] [address] Shilo Lam AST [Catalytic activity/Vol] 21 U/L Normal 15-37 [facility] Comment on above: Performed By: #### F REELIT #### [facility] [address] [address] [address] Shilo Lam Bilirubin [Mass/Vol] 0.6 mg/dL Normal 0.2-1.0 [facility] Comment on above: Performed By: #### F REELIT #### [facility] [address] [address] [address] Shilo Lam Calcium [Mass/Vol] 8.2 mg/dL Critically low 8.5-10.1 [facility] Comment on above: Performed By: #### F REELIT #### [facility] [address] [place] [address] Dr. Shilo Lam Chloride [Moles/Vol] 109 mmol/L Critically high 98-107 [facility] Comment on above: Performed By: #### F REELIT #### [facility] [address] [address] [address] Shilo Lam CO2 [Moles/Vol] 20.5 mmol/L Critically low 21.0-32.0 [facility] Comment on above: Performed By: #### F REELIT #### [facility] [address] [address] [address] Shilo Lam Creatinine [Mass/Vol] 4.77 mg/dL Critically high 0.70-1.30 [facility] Comment on above: Performed By: #### F REELIT #### [facility] [address] [address] [address] Shilo Lam EGFR-AF SAMOAN 15 mL/min/1.73m2 Critically low >=60 [facility] Comment on above: Performed By: #### F REELIT #### [facility] [address] [address] [address] Shilo Lam EGFR-NON AF SAMOAN 13 mL/min/1.73m2 Critically low >=60 [facility] Comment on above: Performed By: #### F REELIT #### [facility] [address] [address] [address] Shilo Lam Globulin (S) [Mass/Vol] 4.6 g/dL Normal T [facility] Comment on above: Performed By: #### F REELIT #### [facility] [address] [address] [address] Shilo Lam Glucose [Mass/Vol] 88 mg/dL Normal 74-106 [facility] Comment on above: Performed By: #### F REELIT #### [facility] [address] [address] [address] Shilo Lam Potassium [Moles/Vol] 3.6 mmol/L Normal 3.5-5.1 [facility] Comment on above: Performed By: #### F REELIT #### [facility] [address] [address] [address] Shilo Lam Protein [Mass/Vol] 7.5 g/dL Normal 6.4-8.2 [facility] Comment on above: Performed By: #### F REELIT #### [facility] [address] [address] [address] Shilo Lam Sodium [Moles/Vol] 141 mmol/L Normal 136-145 [facility] Comment on above: Performed By: #### F REELIT #### [facility] [address] [place] [address] Dr. Shilo Lam Urea nitrogen [Mass/Vol] 75.0 mg/dL Critically high 7.0-18.0 [facility] Comment on above: Performed By: #### F REELIT #### [facility] [address] [place] [address] Dr. Shilo Lam Urea nitrogen/Creatinine [Mass ratio] 15.7 mg/mg Normal [facility] Comment on above: Performed By: #### F REELIT #### [facility] [address] [place] [address] Dr. Shilo Lam URIC ACID SERUMon 03-17-2022 Urate [Mass/Vol] 6.0 mg/dL Normal 3.5-7.2 [facility] Comment on above: Performed By: #### F ALTONT #### [facility] [address] [place] [address] Dr. Shilo Lam VIT B12 AND FOLATEon 022 Cobalamin (Vitamin B12) [Mass/Vol] 697.0 pg/mL Normal 193.0-986.0 [facility] Comment on above: Performed By: #### V ITAD, FERR, FETIBC, B12FOL #### [facility] [address] [place] [address] Dr. Shilo Lma FOLATE 11.70 ng/mL Normal 8.60-58.90 [facility] Comment on above: Performed By: #### V ITAD, FERR, FETIBC, B12FOL #### [facility] [address] [place] [address] Dr. Shilo Lam VITAMIN D 25 OHon 03-17-2022 VIT D 25-OH 16.2 ng/mL Normal [facility] Comment on above: Performed By: #### V ITAD, FERR, FETIBC, B12FOL #### [facility] [address] [place] [address] Dr. Shilo Lam VIT D RANGES SEE BELOW Normal [facility] Comment on above: Result Comment: <20 ng/mL Vit D deficient 20 - <30 ng/mL Vit D insufficient 30 - 100 ng/mL Vit D sufficient >100 ng/mL Potential Toxicity Performed By: #### V ITAD, FERR, FETIBC, B12FOL #### [facility] [address] [place] [address] [address] [address] Shilo Lam CBC W Auto Differential pane l (Bld)on 02-18-2022 Basophils (Bld) [#/Vol] 0.03 10*3/uL Normal <0.11 [facility] Comment on above: Order Comment: Speci men Type: BLOOD SPECIMENOrdering Facility: [facility] Address: [address] [address] Performed By: #### 5 7021-8 ####[facility] LABIA [id number] [place] [address] Basophils/100 WBC (Bld) 0.4 % Normal [facility] Comment on above: Order Comment: Speci men Type: BLOOD SPECIMENOrdering Facility: [facility] Address: [address] [place] [address] Performed By: #### 5 7021-8 ####[facility] LABCLIA [id number] [place] [address] Differential cell count method Nom (Bld) Auto Normal [facility] Comment on above: Order Comment: Speci men Type: BLOOD SPECIMENOrdering Facility: [facility] Address: [address] [place] [address] Performed By: #### 5 7021-8 ####[facility] LABCLIA [id number] [place] [address] Eosinophils (Bld) [#/Vol] 0.14 10*3/uL Normal <0.46 [facility] Comment on above: Order Comment: Speci men Type: BLOOD SPECIMENOrdering Facility: [facility] Address: [address] [place] [address] Performed By: #### 5 7021-8 ####[facility] LABCLIA [id number] [place] [address] Eosinophils/100 WBC (Bld) 1.9 % Normal [facility] Comment on above: Order Comment: Speci men Type: BLOOD SPECIMENOrdering Facility: [facility] Address: [address] [place] [address] Performed By: #### 5 7021-8 ####[facility] LABCLIA [id number] [place] [address] Erythrocyte distribution width (RBC) [Ratio] 17.1 % High 11.5-15.0 [facility] Comment on above: Order Comment: Speci men Type: BLOOD SPECIMENOrdering Facility: [facility] Address: [address] [place] [address] Performed By: #### 5 7021-8 ####[facility] LABCLIA [id number] [place] [address] Hematocrit (Bld) [Volume fraction] 32.4 % Low 39.0-51.0 [facility] Comment on above: Order Comment: Speci men Type: BLOOD SPECIMENOrdering Facility: [facility] Address: [address] [place] [address] Performed By: #### 5 7021-8 ####[facility] LABCLIA [id number] [place] [address] Hemoglobin (Bld) [Mass/Vol] 10.3 g/dL Low 13.0-17.0 [facility] Comment on above: Order Comment: Speci men Type: BLOOD SPECIMENOrdering Facility: [facility] Address: [address] [place] [address] Performed By: #### 5 7021-8 ####[facility] LABCLIA [id number] [place] [address] Immature granulocytes (Bld) [#/Vol] 0.03 10*3/uL Normal <0.10 [facility] Comment on above: Order Comment: Speci men Type: BLOOD SPECIMENOrdering Facility: [facility] Address: [address] [address] Performed By: #### 5 7021-8 ####[facility] LABCLIA [id number] [place] [address] Immature granulocytes/100 WBC (Bld) 0.4 % Normal [facility] Comment on above: Order Comment: Speci men Type: BLOOD SPECIMENOrdering Facility: [facility] Address: [address] [place] [address] Performed By: #### 5 7021-8 ####[facility] LABCLIA [id number] [place] [address] Lymphocytes (Bld) [#/Vol] 0.74 10*3/uL Low 1.00-4.00 [facility] Comment on above: Order Comment: Speci men Type: BLOOD SPECIMENOrdering Facility: [facility] Address: [address] [place] [address] Performed By: #### 5 7021-8 ####[facility] LABCLIA [id number] [place] [address] Lymphocytes/100 WBC (Bld) 9.9 % Normal [facility] Comment on above: Order Comment: Speci men Type: BLOOD SPECIMENOrdering Facility: [facility] Address: [address] [place] [address] Performed By: #### 5 7021-8 ####[facility] LABCLIA [id number] [place] [address] MCH (RBC) [Entitic mass] 27.6 pg Normal 26.0-34.0 [facility] Comment on above: Order Comment: Speci men Type: BLOOD SPECIMENOrdering Facility: [facility] Address: [address] [place] [address] Performed By: #### 5 7021-8 ####[facility] LABCLIA [id number] [place] [address] MCHC (RBC) [Mass/Vol] 31.8 g/dL Normal 30.5-36.0 [facility] Comment on above: Order Comment: Speci men Type: BLOOD SPECIMENOrdering Facility: [facility] Address: [address] [place] [address] Performed By: #### 5 7021-8 ####[facility] LABCLIA [id number] [place] [address] MCV (RBC) [Entitic vol] 86.9 fL Normal 80.0-100.0 [facility] Comment on above: Order Comment: Speci men Type: BLOOD SPECIMENOrdering Facility: [facility] Address: [address] [place] [address] Performed By: #### 5 7021-8 ####[facility] LABCLIA [id number] [place] [address] Monocytes (Bld) [#/Vol] 0.77 10*3/uL Normal <0.87 [facility] Comment on above: Order Comment: Speci men Type: BLOOD SPECIMENOrdering Facility: [facility] Address: [address] [address] Performed By: #### 5 7021-8 ####[facility] LABCLIA [id number] [place] [address] Monocytes/100 WBC (Bld) 10.3 % Normal [facility] Comment on above: Order Comment: Speci men Type: BLOOD SPECIMENOrdering Facility: [facility] Address: [address] [address] Performed By: #### 5 7021-8 ####[facility] LABCLIA [id number] [place] [address] Neutrophils (Bld) [#/Vol] 5.77 10*3/uL Normal 1.45-7.50 [facility] Comment on above: Order Comment: Speci men Type: BLOOD SPECIMENOrdering Facility: [facility] Address: [address] [place] [address] Performed By: #### 5 7021-8 ####[facility] LABCLIA [id number] [place] [address] Neutrophils/100 WBC (Bld) 77.1 % Normal [facility] Comment on above: Order Comment: Speci men Type: BLOOD SPECIMENOrdering Facility: [facility] Address: [address] [place] [address] Performed By: #### 5 7021-8 ####[facility] LABCLIA [id number] [place] [address] Nucleated RBC (Bld) [#/Vol] 10*3/uL Normal <0.01 [facility] Comment on above: Order Comment: Speci men Type: BLOOD SPECIMENOrdering Facility: [facility] Address: [address] [place] [address] Performed By: #### 5 7021-8 ####[facility] LABCLIA [id number] [place] [address] Nucleated RBC/100 WBC (Bld) [Ratio] 0.0 /100 WBC Normal [facility] Comment on above: Order Comment: Speci men Type: BLOOD SPECIMENOrdering Facility: [facility] Address: [address] [place] [address] Performed By: #### 5 7021-8 ####[facility] LABCLIA [id number] [place] [address] Platelet mean volume (Bld) [Entitic vol] 10.4 fL Normal 9.0-12.7 [facility] Comment on above: Order Comment: Speci men Type: BLOOD SPECIMENOrdering Facility: [facility] Address: [address] [place] [address] Performed By: #### 5 7021-8 ####[facility] LABCLIA [id number] [place] [address] Platelets (Bld) [#/Vol] 136 10*3/uL Low 150-400 [facility] Comment on above: Order Comment: Speci men Type: BLOOD SPECIMENOrdering Facility: [facility] Address: [address] [place], [place] [address] Performed By: #### 5 7021-8 ####[facility] LABIA [id number] [place] [address] RBC (Bld) [#/Vol] 3.73 10*6/uL Low 4.20-6.00 [facility] Comment on above: Order Comment: Speci men Type: BLOOD SPECIMENOrdering Facility: [facility] Address: [address] [place], [place] [address] Performed By: #### 5 7021-8 ####[facility] CLAREIA [id number] [place] [address] WBC (Bld) [#/Vol] 7.48 10*3/uL Normal 3.70-11.00 [facility] Comment on above: Order Comment: Speci men Type: BLOOD SPECIMENOrdering Facility: [facility] Address: [address] [place], [place] [address] Performed By: #### 5 7021-8 ####[facility] [id number] [place] [address] CNOVSPon 02-18-2022 CNOVS Visit (SP) Office ([place]) GOPAL YATES JR ([id number]) 1965 M Date Time Provider Department 02/18/22 1:45 PM CONRAD ROJAS During your visit today, we recorded the following information about you: Temperature Pulse Respiration Blood pressure 97.7 degrees 51/minute 16/minute 129/59 Weight Height 88 kg 1.93 m Conrad Rojas MD 02/21/2022 5:24 PM Signed NAME: Gopal Yates CLINIC NO.: [id number] DATE OF SERVICE: February 18, 2022 (Bob) Some elements in this clinic note that are critical to medical decision making have been carefully reviewed and included from a prior clinic note dated:January 14, 2022 (Imer) Referring Provider: Dr. Douglas Juárez Additional Clinicians involved in Gopal Yates JR's care: DIAGNOSIS: Elevated [place]: Lambda light chains CKD induced anemia ASSESSMENT: [...] bruising. 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 Overall, he is doing [...] completed 5 doses of IV iron at [facility]. Initial Visit, October 02, 2021: Gopal Yates [...] 24 hr (more content not included)... Normal [facility] Comprehensive metabolic 2000 panelon 02-18-2022 Albumin [Mass/Vol] 3.2 g/dL Low 3.9-4.9 [facility] Comment on above: Order Comment: Speci men Type: BLOOD SPECIMENOrdering Facility: [facility] Address: [address] [phone] Performed By: #### 2 4323-8 ####[facility] LABCLIA [id number] [place] [address] ALP [Catalytic activity/Vol] 156 U/L High 38-113 [facility] Comment on above: Order Comment: Speci men Type: BLOOD SPECIMENOrdering Facility: [facility] Address: [address] [phone] Performed By: #### 2 4323-8 ####[facility] LABCLIA [id number] [place] [address] ALT [Catalytic activity/Vol] 12 U/L Normal 10-54 [facility] Comment on above: Order Comment: Speci men Type: BLOOD SPECIMENOrdering Facility: [facility] Address: [address] [place] [address] Performed By: #### 2 4323-8 ####[facility] LABCLIA [id number] [place] [address] Anion gap [Moles/Vol] 11 mmol/L Normal 9-18 [facility] Comment on above: Order Comment: Speci men Type: BLOOD SPECIMENOrdering Facility: [facility] Address: [address] [place] [address] Performed By: #### 2 4323-8 ####[facility] LABCLIA [id number] [place] [address] AST [Catalytic activity/Vol] 14 U/L Normal 14-40 [facility] Comment on above: Order Comment: Speci men Type: BLOOD SPECIMENOrdering Facility: [facility] Address: [address] [place] [address] Performed By: #### 2 4323-8 ####[facility] LABCLIA [id number] [place] [address] Bilirubin [Mass/Vol] 0.5 mg/dL Normal 0.2-1.3 [facility] Comment on above: Order Comment: Speci men Type: BLOOD SPECIMENOrdering Facility: [facility] Address: [address] [place] [address] Performed By: #### 2 4323-8 ####[facility] LABCLIA [id number] [place] [address] Calcium [Mass/Vol] 8.2 mg/dL Low 8.5-10.2 [facility] Comment on above: Order Comment: Speci men Type: BLOOD SPECIMENOrdering Facility: [facility] Address: [address] [address] Performed By: #### 2 4323-8 ####[facility] LABCLIA [id number] [place] [address] Chloride [Moles/Vol] 114 mmol/L High 97-105 [facility] Comment on above: Order Comment: Speci men Type: BLOOD SPECIMENOrdering Facility: [facility] Address: [address] [place] [address] Performed By: #### 2 4323-8 ####[facility] LABCLIA [id number] [place] [address] CO2 [Moles/Vol] 18 mmol/L Low 22-30 [facility] Comment on above: Order Comment: Speci men Type: BLOOD SPECIMENOrdering Facility: [facility] Address: [address] [place] [address] Performed By: #### 2 4323-8 ####[facility] LABCLIA [id number] [place] [address] Creatinine [Mass/Vol] 4.08 mg/dL High 0.73-1.22 [facility] Comment on above: Order Comment: Speci men Type: BLOOD SPECIMENOrdering Facility: [facility] Address: [address] [place] [address] Performed By: #### 2 4323-8 ####[facility] LABCLIA [id number] [place] [address] ESTIMATED GLOMERULAR FILTRATION RATE 16 mL/min/1.73m??? Low >=60 [facility] Comment on above: Order Comment: Speci men Type: BLOOD SPECIMENOrdering Facility: [facility] Address: [address] [place] [address] Result Comment: Trixie mated Glomerular Filtration Rate [...] actual GFR. Performed By: #### 2 4323-8 ####[facility] LABCLIA [id number] [place] [address] Glucose [Mass/Vol] 102 mg/dL High 74-99 [facility] Comment on above: Order Comment: Speci men Type: BLOOD SPECIMENOrdering Facility: [facility] Address: [address] [place], [place] [phone] Result Comment: The [place] [employer] (ADA) provides guidance for cutoff [...] Standards of Medical Care in Diabetes 2016, [place] [employer]. Diabetes Care. 2016.39(Suppl 1). Performed By: #### 2 4323-8 ####[facility] LABCLIA [id number] [place] [address] Potassium [Moles/Vol] 4.1 mmol/L Normal 3.7-5.1 [facility] Comment on above: Order Comment: Speci men Type: BLOOD SPECIMENOrdering Facility: [facility] Address: [address] [place] [id number] Performed By: #### 2 4323-8 ####[facility] LABCLIA [id number] [place] [address] Protein [Mass/Vol] 6.8 g/dL Normal 6.3-8.0 [facility] Comment on above: Order Comment: Speci men Type: BLOOD SPECIMENOrdering Facility: [facility] Address: [address] [address] Performed By: #### 2 4323-8 ####[facility] LABCLIA [id number] [place] [address] Sodium [Moles/Vol] 143 mmol/L Normal 136-144 [facility] Comment on above: Order Comment: Speci men Type: BLOOD SPECIMENOrdering Facility: [facility] Address: [address] [address] Performed By: #### 2 4323-8 ####[facility] LABCLIA [id number] [place] [address] Urea nitrogen [Mass/Vol] 54 mg/dL High 9-24 [facility] Comment on above: Order Comment: Speci men Type: BLOOD SPECIMENOrdering Facility: [facility] Address: [address] [address] Performed By: #### 2 4323-8 ####[facility] LABCLIA [id number] [place] [address] CBC W Auto Differential pane l (Bld)on 02-04-2022 Basophils (Bld) [#/Vol] 0.03 10*3/uL Normal <0.11 [facility] Comment on above: Order Comment: Speci men Type: BLOOD SPECIMEN [facility] Address: [address] [address] Performed By: #### 5 7021-8 #### [facility] CLIA [id number] [address] [place] [address] Basophils/100 WBC (Bld) 0.3 % Normal [facility] Comment on above: Order Comment: Speci men Type: BLOOD SPECIMEN [facility] Address: [address] [address] Performed By: #### 5 7021-8 #### [facility] CLIA [id number] [address] [place] [address] Differential cell count method Nom (Bld) Auto Normal [facility] Comment on above: Order Comment: Speci men Type: BLOOD SPECIMEN [facility] Address: [address] [place], [place] [address] Performed By: #### 5 7021-8 #### [facility] CLIA [id number] [address] [place] [address] Eosinophils (Bld) [#/Vol] 0.13 10*3/uL Normal <0.46 [facility] Comment on above: Order Comment: Speci men Type: BLOOD SPECIMEN [facility] Address: [address] [place] [address] Performed By: #### 5 7021-8 #### [facility] CLIA [id number] [address] [place] [address] Eosinophils/100 WBC (Bld) 1.4 % Normal [facility] Comment on above: Order Comment: Speci men Type: BLOOD SPECIMEN [facility]ing [facility] Address: [address] [place], [place] [address] Performed By: #### 5 7021-8 #### [facility] CLIA [id number] [address] [place] [address] Erythrocyte distribution width (RBC) [Ratio] 14.6 % Normal 11.5-15.0 [facility] Comment on above: Order Comment: Speci men Type: BLOOD SPECIMEN [facility]ing [facility] Address: [address] [place], [place] [address] Performed By: #### 5 7021-8 #### [facility] CLIA [id number] [address] [place] [address] Hematocrit (Bld) [Volume fraction] 29.9 % Low 39.0-51.0 [facility] Comment on above: Order Comment: Speci men Type: BLOOD SPECIMEN [facility]ing [facility] Address: [address] [place], [place] [address] Performed By: #### 5 7021-8 #### [facility] CLIA [id number] [address] [place] [address] Hemoglobin (Bld) [Mass/Vol] 9.8 g/dL Low 13.0-17.0 [facility] Comment on above: Order Comment: Speci men Type: BLOOD SPECIMEN [facility] Address: [address] [place] [address] Performed By: #### 5 7021-8 #### [facility] CLIA [id number] [address] [place] [address] Immature granulocytes (Bld) [#/Vol] 0.03 10*3/uL Normal <0.10 [facility] Comment on above: Order Comment: Speci men Type: BLOOD SPECIMEN [facility] Address: [address] [place] [address] Performed By: #### 5 7021-8 #### [facility] CLIA [id number] [address] [place] [address] Immature granulocytes/100 WBC (Bld) 0.3 % Normal [facility] Comment on above: Order Comment: Speci men Type: BLOOD SPECIMEN [facility] Address: [address] [place] [address] Performed By: #### 5 7021-8 #### [facility] CLIA [id number] [address] [place] [address] Lymphocytes (Bld) [#/Vol] 0.88 10*3/uL Low 1.00-4.00 [facility] Comment on above: Order Comment: Speci men Type: BLOOD SPECIMEN [facility] Address: [address] [place] [address] Performed By: #### 5 7021-8 #### [facility] CLIA [id number] [address] [place] [address] Lymphocytes/100 WBC (Bld) 9.4 % Normal [facility] Comment on above: Order Comment: Speci men Type: BLOOD SPECIMEN [facility] Address: [address] [place] [address] Performed By: #### 5 7021-8 #### [facility] CLIA [id number] [address] [place] [address] MCH (RBC) [Entitic mass] 27.5 pg Normal 26.0-34.0 [facility] Comment on above: Order Comment: Speci men Type: BLOOD SPECIMEN [facility] Address: [address] [place] [address] Performed By: #### 5 7021-8 #### [facility] CLIA [id number] [address] [place] [address] MCHC (RBC) [Mass/Vol] 32.8 g/dL Normal 30.5-36.0 [facility] Comment on above: Order Comment: Speci men Type: BLOOD SPECIMEN [facility] Address: [address] [place] [address] Performed By: #### 5 7021-8 #### [facility] CLIA [id number] [address] [place] [address] MCV (RBC) [Entitic vol] 84.0 fL Normal 80.0-100.0 [facility] Comment on above: Order Comment: Speci men Type: BLOOD SPECIMEN [facility] Address: [address] [place], [place] [address] Performed By: #### 5 7021-8 #### [facility] CLIA [id number] [address] [place] [address] Monocytes (Bld) [#/Vol] 0.82 10*3/uL Normal <0.87 [facility] Comment on above: Order Comment: Speci men Type: BLOOD SPECIMEN [facility] Address: [address] [place] [address] Performed By: #### 5 7021-8 #### [facility] CLIA [id number] [address] [place] [address] 84702 Monocytes/100 WBC (Bld) 8.8 % Normal C [facility] Comment on above: Order Comment: Speci men Type: BLOOD SPECIMEN Ordering Facility: [facility] Address: [address] [place] [address] Performed By: #### 5 7021-8 #### [facility] CLIA [id number] [place] [address] 53398 Neutrophils (Bld) [#/Vol] 7.48 10*3/uL Normal 1.45-7.50 [facility] Comment on above: Order Comment: Speci men Type: BLOOD SPECIMEN Ordering Facility: [facility] Address: [address] [place] [address] Performed By: #### 5 7021-8 #### [facility] CLIA [id number] [address] [place] [address] 61678 Neutrophils/100 WBC (Bld) 79.8 % Normal [facility] Comment on above: Order Comment: Speci men Type: BLOOD SPECIMEN Ordering Facility: [facility] Address: [address] [place] [address] Performed By: #### 5 7021-8 #### [facility] CLIA [id number] [address] [place] [address] 53069 Nucleated RBC (Bld) [#/Vol] 10*3/uL Normal <0.01 [facility] Comment on above: Order Comment: Speci men Type: BLOOD SPECIMEN Ordering Facility: [facility] Address: [address] [place] [address] Performed By: #### 5 7021-8 #### [facility] CLIA [id number] [address] [place] [address] 67587 Nucleated RBC/100 WBC (Bld) [Ratio] 0.0 /100 WBC Normal [facility] Comment on above: Order Comment: Speci men Type: BLOOD SPECIMEN Ordering Facility: [facility] Address: [address] [place], [place] [address] Performed By: #### 5 7021-8 #### [facility] CLIA [id number] [address] [place] [address] 89223 Platelet mean volume (Bld) [Entitic vol] 10.4 fL Normal 9.0-12.7 [facility] Comment on above: Order Comment: Speci men Type: BLOOD SPECIMEN Ordering Facility: [facility] Address: [address] [place], [place] [address] Performed By: #### 5 7021-8 #### [facility] CLIA [id number] [address] [place] [address] 68184 Platelets (Bld) [#/Vol] 137 10*3/uL Low 150-400 [facility] Comment on above: Order Comment: Speci men Type: BLOOD SPECIMEN Ordering Facility: [facility] Address: [address] [place] [address] Performed By: #### 5 7021-8 #### [facility] CLIA [id number] [address] [place] [address] 03329 RBC (Bld) [#/Vol] 3.56 10*6/uL Low 4.20-6.00 [facility] Comment on above: Order Comment: Speci men Type: BLOOD SPECIMEN Ordering Facility: [facility] Address: [address] [place] [address] Performed By: #### 5 7021-8 #### [facility] CLIA [id number] [address] [place] [address] 25469 WBC (Bld) [#/Vol] 9.37 10*3/uL Normal 3.70-11.00 [facility] Comment on above: Order Comment: Speci men Type: BLOOD SPECIMEN Ordering Facility: [facility] Address: [address] [place] [address] Performed By: #### 5 7021-8 #### [facility] CLIA [id number] [address] [place] [address] 15399 Comprehensive metabolic 2000 panelon 02-04-2022 Albumin [Mass/Vol] 3.4 g/dL Low 3.9-4.9 [facility] Comment on above: Order Comment: Speci men Type: BLOOD SPECIMENOrdering Facility: [facility] Address: [address] [place] [address] Performed By: #### 2 4323-8 ####[facility] [id number] [place] [address] ALP [Catalytic activity/Vol] 179 U/L High 38-113 [facility] Comment on above: Order Comment: Speci men Type: BLOOD SPECIMENOrdering Facility: [facility] Address: [address] [place] [address] Performed By: #### 2 4323-8 ####[facility] [id number] [place] [address] ALT [Catalytic activity/Vol] 25 U/L Normal 10-54 [facility] Comment on above: Order Comment: Speci men Type: BLOOD SPECIMENOrdering Facility: [facility] Address: [address] [place] [address] Performed By: #### 2 4323-8 ####[facility] [id number] [place] [address] Anion gap [Moles/Vol] 8 mmol/L Low 9-18 [facility] Comment on above: Order Comment: Speci men Type: BLOOD SPECIMENOrdering Facility: [facility] Address: [address] [address] Performed By: #### 2 4323-8 ####[facility] [id number] [place] [address] AST [Catalytic activity/Vol] 23 U/L Normal 14-40 [facility] Comment on above: Order Comment: Speci men Type: BLOOD SPECIMENOrdering Facility: [facility] Address: [address] [place] [address] Performed By: #### 2 4323-8 ####[facility] [id number] [place] [address] Bilirubin [Mass/Vol] 0.3 mg/dL Normal 0.2-1.3 [facility] Comment on above: Order Comment: Speci men Type: BLOOD SPECIMENOrdering Facility: [facility] Address: [address] [place] [address] Performed By: #### 2 4323-8 ####[facility] [id number] [place] [address] Calcium [Mass/Vol] 8.4 mg/dL Low 8.5-10.2 [facility] Comment on above: Order Comment: Speci men Type: BLOOD SPECIMENOrdering Facility: [facility] Address: [address] [place] [address] Performed By: #### 2 4323-8 ####[facility] [id number] [place] [address] Chloride [Moles/Vol] 117 mmol/L High 97-105 [facility] Comment on above: Order Comment: Speci men Type: BLOOD SPECIMENOrdering Facility: [facility] Address: [address] [place] [address] Performed By: #### 2 4323-8 ####[facility] [id number] [place] [address] CO2 [Moles/Vol] 21 mmol/L Low 22-30 [facility] Comment on above: Order Comment: Speci men Type: BLOOD SPECIMENOrdering Facility: [facility] Address: [address] [place] [address] Performed By: #### 2 4323-8 ####[facility] [id number] [place] [address] Creatinine [Mass/Vol] 3.84 mg/dL High 0.73-1.22 [facility] Comment on above: Order Comment: Speci men Type: BLOOD SPECIMENOrdering Facility: [facility] Address: [address] [place] [address] Performed By: #### 2 4323-8 ####[facility] [id number] [place] [address] ESTIMATED GLOMERULAR FILTRATION RATE 17 mL/min/1.73m??? Low >=60 [facility] Comment on above: Order Comment: Fabi mcdonnell Type: BLOOD SPECIMENOrdering Facility: [facility] Address: [address] [place] [address] Result Comment: Trixie mated Glomerular Filtration Rate [...] actual GFR. Performed By: #### 2 4323-8 ####[facility]IA [id number] [place] [address] Glucose [Mass/Vol] 96 mg/dL Normal 74-99 [facility] Comment on above: Order Comment: Dioniciomesfin mcdonnell Type: BLOOD SPECIMENOrdering Facility: [facility] Address: [address] [place] [address] Result Comment: The [place] [employer] (ADA) provides guidance for cutoff [...] Standards of Medical Care in Diabetes 2016, [place] [employer]. Diabetes Care. 2016.39(Suppl 1). Performed By: #### 2 4323-8 ####[facility]IA [id number] [place] [address] Potassium [Moles/Vol] 4.1 mmol/L Normal 3.7-5.1 [facility] Comment on above: Order Comment: Speci men Type: BLOOD SPECIMENOrdering Facility: [facility] Address: [address] [place] [address] Performed By: #### 2 4323-8 ####[facility]IA [id number] [place] [address] Protein [Mass/Vol] 6.9 g/dL Normal 6.3-8.0 [facility] Comment on above: Order Comment: Speci men Type: BLOOD SPECIMENOrdering Facility: [facility] Address: [address] [place] [address] Performed By: #### 2 4323-8 ####[facility]IA [id number] [place] [address] Sodium [Moles/Vol] 146 mmol/L High 136-144 [facility] Comment on above: Order Comment: Speci men Type: BLOOD SPECIMENOrdering Facility: [facility] Address: [address] [place] [address] Performed By: #### 2 4323-8 ####[facility]IA [id number] [place] [address] Urea nitrogen [Mass/Vol] 56 mg/dL High 9-24 [facility] Comment on above: Order Comment: Speci men Type: BLOOD SPECIMENOrdering Facility: [facility] Address: [address] [place] [address] Performed By: #### 2 4323-8 ####[facility]IA [id number] [place] [address] FERRITIN BLDon 01-15-2022 Ferritin [Mass/Vol] 684.0 ng/mL High 30.3 - 5 65.7 ng/mL [facility] Iron and Iron binding capaci ty panelon 01-15-2022 Iron [Mass/Vol] 56 ug/dL 41 - 186 ug/dL [facility] Iron binding capacity [Mass/Vol] 177 ug/dL Low 232 - 386 ug/dL [facility] Iron/TIBC [Molar ratio] 31.6 % 15.0 - 57.0 % [facility] TSH BLDon 01-15-2022 TSH Qn 0.808 m[IU]/L 0.270 - 4.200 mIU/L [facility] CBC W Auto Differential pane l (Bld)on 01-14-2022 Basophils (Bld) [#/Vol] 0.03 10*3/uL Normal <0.11 [facility] Comment on above: Order Comment: Speci men Type: BLOOD SPECIMEN Ordering Facility: [facility] Address: [address] [place] [address] Performed By: #### 5 7021-8 #### [facility] CLIA [id number] [address] [place] [address] 36315 Basophils/100 WBC (Bld) 0.4 % Normal [facility] Comment on above: Order Comment: Speci men Type: BLOOD SPECIMEN Ordering Facility: [facility] Address: [address] [place] [address] Performed By: #### 5 7021-8 #### [facility] CLIA [id number] [address] [place] [address] 11236 Differential cell count method Nom (Bld) Auto Normal [facility] Comment on above: Order Comment: Speci men Type: BLOOD SPECIMEN Ordering Facility: [facility] Address: [address] [place] [address] Performed By: #### 5 7021-8 #### [facility] CLIA [id number] [address] [place] [address] 91347 Eosinophils (Bld) [#/Vol] 0.19 10*3/uL Normal <0.46 [facility] Comment on above: Order Comment: Speci men Type: BLOOD SPECIMEN Ordering Facility: [facility] Address: [address] [address] Performed By: #### 5 7021-8 #### [facility] CLIA [id number] [address] [place] [address] 02576 Eosinophils/100 WBC (Bld) 2.2 % Normal [facility] Comment on above: Order Comment: Speci men Type: BLOOD SPECIMEN Ordering Facility: [facility] Address: [address] [place] [address] Performed By: #### 5 7021-8 #### [facility] CLIA [id number] [address] [place] [address] 64144 Erythrocyte distribution width (RBC) [Ratio] 13.9 % Normal 11.5-15.0 [facility] Comment on above: Order Comment: Speci men Type: BLOOD SPECIMEN Ordering Facility: [facility] Address: [address] [place] [address] Performed By: #### 5 7021-8 #### [facility] CLIA [id number] [address] [place] [address] 29755 Hematocrit (Bld) [Volume fraction] 33.7 % Low 39.0-51.0 [facility] Comment on above: Order Comment: Speci men Type: BLOOD SPECIMEN Ordering Facility: [facility] Address: [address] [place] [address] Performed By: #### 5 7021-8 #### [facility] CLIA [id number] [address] [place] [address] 14175 Hemoglobin (Bld) [Mass/Vol] 11.3 g/dL Low 13.0-17.0 [facility] Comment on above: Order Comment: Speci men Type: BLOOD SPECIMEN Ordering Facility: [facility] Address: [address] [place] [address] Performed By: #### 5 7021-8 #### [facility] CLIA [id number] [address] [place] [address] 07738 Immature granulocytes (Bld) [#/Vol] 0.03 10*3/uL Normal <0.10 [facility] Comment on above: Order Comment: Speci men Type: BLOOD SPECIMEN Ordering Facility: [facility] Address: [address] [place], [place] [address] Performed By: #### 5 7021-8 #### [facility] CLIA [id number] [address] [place] [address] 96586 Immature granulocytes/100 WBC (Bld) 0.4 % Normal [facility] Comment on above: Order Comment: Speci men Type: BLOOD SPECIMEN Ordering Facility: [facility] Address: [address] [place] [address] Performed By: #### 5 7021-8 #### [facility] CLIA [id number] [address] [place] [address] 10406 Lymphocytes (Bld) [#/Vol] 0.95 10*3/uL Low 1.00-4.00 [facility] Comment on above: Order Comment: Speci men Type: BLOOD SPECIMEN Ordering Facility: [facility] Address: [address] [place], [place] [address] Performed By: #### 5 7021-8 #### [facility] CLIA [id number] [address] [place] [address] 48484 Lymphocytes/100 WBC (Bld) 11.1 % Normal [facility] Comment on above: Order Comment: Speci men Type: BLOOD SPECIMEN Ordering Facility: [facility] Address: [address] [place], [place] [address] Performed By: #### 5 7021-8 #### [facility] CLIA [id number] [address] [place] [address] 90215 MCH (RBC) [Entitic mass] 27.6 pg Normal 26.0-34.0 [facility] Comment on above: Order Comment: Speci men Type: BLOOD SPECIMEN Ordering Facility: [facility] Address: [address] [place], [place] [address] Performed By: #### 5 7021-8 #### [facility] CLIA [id number] [address] [place] [address] 15846 MCHC (RBC) [Mass/Vol] 33.5 g/dL Normal 30.5-36.0 [facility] Comment on above: Order Comment: Speci men Type: BLOOD SPECIMEN Ordering Facility: [facility] Address: [address] [place] [address] Performed By: #### 5 7021-8 #### [facility] CLIA [id number] [address] [place] [address] 58851 MCV (RBC) [Entitic vol] 82.2 fL Normal 80.0-100.0 [facility] Comment on above: Order Comment: Speci men Type: BLOOD SPECIMEN Ordering Facility: [facility] Address: [address] [place] [address] Performed By: #### 5 7021-8 #### [facility] CLIA [id number] [address] [place] [address] 87857 Monocytes (Bld) [#/Vol] 0.89 10*3/uL High <0.87 [facility] Comment on above: Order Comment: Speci men Type: BLOOD SPECIMEN Ordering Facility: [facility] Address: [address] [place] [address] Performed By: #### 5 7021-8 #### [facility] CLIA [id number] [address] [place] [address] 58225 Monocytes/100 WBC (Bld) 10.4 % Normal C [facility] Comment on above: Order Comment: Speci men Type: BLOOD SPECIMEN Ordering Facility: [facility] Address: [address] [place] [address] Performed By: #### 5 7021-8 #### [facility] CLIA [id number] [address] [place] [address] 28587 Neutrophils (Bld) [#/Vol] 6.45 10*3/uL Normal 1.45-7.50 [facility] Comment on above: Order Comment: Speci men Type: BLOOD SPECIMEN Ordering Facility: [facility] Address: [address] [address] Performed By: #### 5 7021-8 #### [facility] CLIA [id number] [address] [place] [address] 43358 Neutrophils/100 WBC (Bld) 75.5 % Normal [facility] Comment on above: Order Comment: Speci men Type: BLOOD SPECIMEN Ordering Facility: [facility] Address: [address] [place] [address] Performed By: #### 5 7021-8 #### [facility] CLIA [id number] [address] [place] [address] 67544 Nucleated RBC (Bld) [#/Vol] 10*3/uL Normal <0.01 [facility] Comment on above: Order Comment: Speci men Type: BLOOD SPECIMEN Ordering Facility: [facility] Address: [address] [place] [address] Performed By: #### 5 7021-8 #### [facility] CLIA [id number] [address] [place] [address] 80372 Nucleated RBC/100 WBC (Bld) [Ratio] 0.0 /100 WBC Normal [facility] Comment on above: Order Comment: Speci men Type: BLOOD SPECIMEN Ordering Facility: [facility] Address: [address] [place] [address] Performed By: #### 5 7021-8 #### [facility] CLIA [id number] [address] [place] [address] 18445 Platelet mean volume (Bld) [Entitic vol] 10.1 fL Normal 9.0-12.7 [facility] Comment on above: Order Comment: Speci men Type: BLOOD SPECIMEN Ordering Facility: [facility] Address: [address] [place] [address] Performed By: #### 5 7021-8 #### [facility] CLIA [id number] [address] [place] [address] 30947 Platelets (Bld) [#/Vol] 168 10*3/uL Normal 150-400 [facility] Comment on above: Order Comment: Speci men Type: BLOOD SPECIMEN Ordering Facility: [facility] Address: [address] [place] [address] Performed By: #### 5 7021-8 #### [facility] CLIA [id number] [address] [place] [address] 18216 RBC (Bld) [#/Vol] 4.10 10*6/uL Low 4.20-6.00 [facility] Comment on above: Order Comment: Speci men Type: BLOOD SPECIMEN Ordering Facility: [facility] Address: [address] [place] [address] Performed By: #### 5 7021-8 #### [facility] CLIA [id number] [address] [place] [address] 69268 WBC (Bld) [#/Vol] 8.54 10*3/uL Normal 3.70-11.00 [facility] Comment on above: Order Comment: Speci men Type: BLOOD SPECIMEN Ordering Facility: [facility] Address: [address] [place] [address] Performed By: #### 5 7021-8 #### [facility] CLIA [id number] [address] [place] [address] 61110 CNOVSPon 01-14-2022 CNOVS Visit (SP) Office ([facility]) GOPAL YATES JR ([id number]) 1965 M Date Time Provider Department 01/14/22 2:30 PM MONIK DOTSON During your visit today, we recorded the following information about you: Temperature Pulse Respiration Blood pressure 97.6 degrees 57/minute 16/minute 130/58 Weight Height 86.5 kg 1.93 m Monik Dotson APRN.ACCT EXEC 01/16/2022 4:13 PM Signed NAME: Gopal Yates CLINIC NO.: [id number] DATE OF SERVICE: January 14, 2022 (Imer) [...] to Hol) 3. Will obtain records from [facility] mainly interested in IV Iron dates. CURRENT [...] bruising. 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 Overall, he is doing [...] completed 5 doses of IV iron at [facility]. Initial Visit, October 02, 2021: Gopal Yates [...] mg tab (more content not included)... Normal [facility] Comprehensive metabolic 2000 panelon 01-14-2022 Albumin [Mass/Vol] 3.4 g/dL Low 3.9-4.9 [facility] Comment on above: Order Comment: Speci men Type: BLOOD SPECIMENOrdering Facility: [facility] Address: [address] [place] [address] Performed By: #### 2 4323-8 ####[facility] LAB[facility]IA [id number] [place] [address] ALP [Catalytic activity/Vol] 190 U/L High 38-113 [facility] Comment on above: Order Comment: Speci men Type: BLOOD SPECIMENOrdering Facility: [facility] Address: [address] [address] Performed By: #### 2 4323-8 ####[facility] [id number] [place] [address] ALT [Catalytic activity/Vol] 24 U/L Normal 10-54 [facility] Comment on above: Order Comment: Speci men Type: BLOOD SPECIMENOrdering Facility: [facility] Address: [address] [place] [address] Performed By: #### 2 4323-8 ####[facility] [id number] [place] [address] Anion gap [Moles/Vol] 11 mmol/L Normal 9-18 [facility] Comment on above: Order Comment: Speci men Type: BLOOD SPECIMENOrdering Facility: [facility] Address: [address] [place] [address] Performed By: #### 2 4323-8 ####[facility] LAB[facility] [id number] [place] [address] AST [Catalytic activity/Vol] 19 U/L Normal 14-40 [facility] Comment on above: Order Comment: Speci men Type: BLOOD SPECIMENOrdering Facility: [facility] Address: [address] [place] [address] Performed By: #### 2 4323-8 ####[facility] [id number] [place] [address] Bilirubin [Mass/Vol] 0.4 mg/dL Normal 0.2-1.3 [facility] Comment on above: Order Comment: Speci men Type: BLOOD SPECIMENOrdering Facility: [facility] Address: [address] [place] [address] Performed By: #### 2 4323-8 ####[facility] [id number] [place] [address] Calcium [Mass/Vol] 8.5 mg/dL Normal 8.5-10.2 [facility] Comment on above: Order Comment: Speci men Type: BLOOD SPECIMENOrdering Facility: [facility] Address: [address] [address] Performed By: #### 2 4323-8 ####[facility] LAB[facility] [id number] [place] [address] Chloride [Moles/Vol] 112 mmol/L High 97-105 [facility] Comment on above: Order Comment: Speci men Type: BLOOD SPECIMENOrdering Facility: [facility] Address: [address] [place] [address] Performed By: #### 2 4323-8 ####[facility]IA [id number] [place] [address] CO2 [Moles/Vol] 19 mmol/L Low 22-30 [facility] Comment on above: Order Comment: Speci men Type: BLOOD SPECIMENOrdering Facility: [facility] Address: [address] [place] [address] Performed By: #### 2 4323-8 ####[facility] [id number] [place] [address] Creatinine [Mass/Vol] 4.06 mg/dL High 0.73-1.22 [facility] Comment on above: Order Comment: Speci men Type: BLOOD SPECIMENOrdering Facility: [facility] Address: [address] [place], [place] [id number] Performed By: #### 2 4323-8 ####[facility] LABCLIA [id number] [place] [address] ESTIMATED GLOMERULAR FILTRATION RATE 16 mL/min/1.73m??? Low >=60 [facility] Comment on above: Order Comment: Speci men Type: BLOOD SPECIMENOrdering Facility: [facility] Address: [address] [place], [place] [id number] Result Comment: Trixie mated Glomerular Filtration Rate [...] actual GFR. Performed By: #### 2 4323-8 ####[facility] LABCLIA [id number] [place] [address] Glucose [Mass/Vol] 90 mg/dL Normal 74-99 [facility] Comment on above: Order Comment: Specmesfin mcdonnell Type: BLOOD SPECIMENOrdering Facility: [facility] Address: [address] [place] [phone] Result Comment: The [place] Diabetes Association (ADA) provides guidance for cutoff [...] Standards of Medical Care in Diabetes 2016, [place] [employer]. Diabetes Care. 2016.39(Suppl 1). Performed By: #### 2 4323-8 ####[facility] LABCLIA [id number] [place] [address] Potassium [Moles/Vol] 4.1 mmol/L Normal 3.7-5.1 [facility] Comment on above: Order Comment: Fabi mcdonnell Type: BLOOD SPECIMENOrdering Facility: [facility] Address: [address] [place] [phone] Performed By: #### 2 4323-8 ####[facility] LABCLIA [id number] [place] [address] Protein [Mass/Vol] 7.2 g/dL Normal 6.3-8.0 [facility] Comment on above: Order Comment: Speci men Type: BLOOD SPECIMENOrdering Facility: [facility] Address: [address] [place] [address] Performed By: #### 2 4323-8 ####[facility] LABCLIA [id number] [place] [address] Sodium [Moles/Vol] 142 mmol/L Normal 136-144 [facility] Comment on above: Order Comment: Speci men Type: BLOOD SPECIMENOrdering Facility: [facility] Address: [address] [place] [address] Performed By: #### 2 4323-8 ####[facility] LABCLIA [id number] [place] [address] Urea nitrogen [Mass/Vol] 61 mg/dL High 9-24 [facility] Comment on above: Order Comment: Speci men Type: BLOOD SPECIMENOrdering Facility: [facility] Address: [address] [place] [address] Performed By: #### 2 4323-8 ####[facility] LABCLIA [id number] [place] [address] Ferritin SerPl-mCncon 2021 Ferritin [Mass/Vol] 684.0 ng/mL High 30.3-565.7 [facility] Comment on above: Order Comment: Speci men Type: BLOOD SPECIMENOrdering Facility: [facility] Address: [address] [place] [address] Performed By: #### 2 276-4, 34705-1, 3016-3 ####[facility] LABCLIA [id number] [place] [address] [place] Iron and Iron binding capaci ty panelon 01-14-2022 Iron [Mass/Vol] 56 ug/dL Normal 41-186 [facility] Comment on above: Order Comment: Speci men Type: BLOOD SPECIMENOrdering Facility: [facility] Address: [address] [place], [place] [address] Performed By: #### 2 276-4, 76041-4, 3016-3 ####[facility] LABCLIA [id number] [place] [address] [place] Iron binding capacity [Mass/Vol] 177 ug/dL Low 232-386 [facility] Comment on above: Order Comment: Speci men Type: BLOOD SPECIMENOrdering Facility: [facility] Address: [address] [place], [place] [address] Performed By: #### 2 276-4, 50769-6, 3016-3 ####[facility] LABIA [id number] [address] [place] Iron/TIBC [Molar ratio] 31.6 % Normal 15.0-57.0 [facility] Comment on above: Order Comment: Speci men Type: BLOOD SPECIMENOrdering Facility: [facility] Address: [address] [place] [address] Performed By: #### 2 276-4, 56511-6, 6-3 ####[facility] LABCLIA [id number] [address] [place] TSH SerPl-aCncon 01-14-2022 TSH Qn 0.808 m[IU]/L Normal 0.270-4.200 [facility] Comment on above: Order Comment: Speci men Type: BLOOD SPECIMENOrdering Facility: [facility] Address: [address] [place], [place] [address] Performed By: #### 2 276-4, 93445-3, 3016-3 ####[facility] LABIA [id number] [place] [address] [place] CBC W Auto Differential pane l (Bld)on 12-17-2021 Basophils (Bld) [#/Vol] 0.03 10*3/uL Normal <0.11 [facility] Comment on above: Order Comment: Speci men Type: BLOOD SPECIMENOrdering Facility: [facility] Address: [address] [place] [address] Performed By: #### 5 7021-8 ####[facility] LABCLIA [id number] [place] [address] Basophils/100 WBC (Bld) 0.5 % Normal [facility] Comment on above: Order Comment: Speci men Type: BLOOD SPECIMENOrdering Facility: [facility] Address: [address] [place] [address] Performed By: #### 5 7021-8 ####[facility] LABCLIA [id number] [place] [address] Differential cell count method Nom (Bld) Auto Normal [facility] Comment on above: Order Comment: Speci men Type: BLOOD SPECIMENOrdering Facility: [facility] Address: [address] [place] [address] Performed By: #### 5 7021-8 ####[facility] LABCLIA [id number] [place] [address] Eosinophils (Bld) [#/Vol] 0.19 10*3/uL Normal <0.46 [facility] Comment on above: Order Comment: Speci men Type: BLOOD SPECIMENOrdering Facility: [facility] Address: [address] [place] [address] Performed By: #### 5 7021-8 ####[facility] LABCLIA [id number] [place] [address] Eosinophils/100 WBC (Bld) 3.3 % Normal [facility] Comment on above: Order Comment: Speci men Type: BLOOD SPECIMENOrdering Facility: [facility] Address: [address] [place] [address] Performed By: #### 5 7021-8 ####[facility] LABCLIA [id number] [place] [address] Erythrocyte distribution width (RBC) [Ratio] 13.8 % Normal 11.5-15.0 [facility] Comment on above: Order Comment: Speci men Type: BLOOD SPECIMENOrdering Facility: [facility] Address: [address] [place] [address] Performed By: #### 5 7021-8 ####[facility] LABIA [id number] [place] [address] Hematocrit (Bld) [Volume fraction] 36.5 % Low 39.0-51.0 [facility] Comment on above: Order Comment: Speci men Type: BLOOD SPECIMENOrdering Facility: [facility] Address: [address] [place] [address] Performed By: #### 5 7021-8 ####[facility] [id number] [place] [address] Hemoglobin (Bld) [Mass/Vol] 12.0 g/dL Low 13.0-17.0 [facility] Comment on above: Order Comment: Speci men Type: BLOOD SPECIMENOrdering Facility: [facility] Address: [address] [place] [address] Performed By: #### 5 7021-8 ####[facility] LABIA [id number] [place] [address] IMMATURE GRAN % 0.3 % Normal [facility] Comment on above: Order Comment: Speci men Type: BLOOD SPECIMENOrdering Facility: [facility] Address: [address] [place] [address] Performed By: #### 5 7021-8 ####[facility] LABIA [id number] [place] [address] IMMATURE GRAN ABS <0.03 Normal <0.10 [facility] Comment on above: Order Comment: Speci men Type: BLOOD SPECIMENOrdering Facility: [facility] Address: [address] [place] [address] Performed By: #### 5 7021-8 ####[facility] LABCLIA [id number] [place] [address] Lymphocytes (Bld) [#/Vol] 0.80 10*3/uL Low 1.00-4.00 [facility] Comment on above: Order Comment: Speci men Type: BLOOD SPECIMENOrdering Facility: [facility] Address: [address] [place] [address] Performed By: #### 5 7021-8 ####[facility] LABCLIA [id number] [place] [address] Lymphocytes/100 WBC (Bld) 13.9 % Normal [facility] Comment on above: Order Comment: Speci men Type: BLOOD SPECIMENOrdering Facility: [facility] Address: [address] [place] [address] Performed By: #### 5 7021-8 ####[facility] LABCLIA [id number] [place] [address] MCH (RBC) [Entitic mass] 27.5 pg Normal 26.0-34.0 [facility] Comment on above: Order Comment: Speci men Type: BLOOD SPECIMENOrdering Facility: [facility] Address: [address] [place] [address] Performed By: #### 5 7021-8 ####[facility] LABIA [id number] [place] [address] MCHC (RBC) [Mass/Vol] 32.9 g/dL Normal 30.5-36.0 [facility] Comment on above: Order Comment: Speci men Type: BLOOD SPECIMENOrdering Facility: [facility] Address: [address] [place] [address] Performed By: #### 5 7021-8 ####[facility] LABCLIA [id number] [place] [address] MCV (RBC) [Entitic vol] 83.7 fL Normal 80.0-100.0 [facility] Comment on above: Order Comment: Speci men Type: BLOOD SPECIMENOrdering Facility: [facility] Address: [address] [place] [address] Performed By: #### 5 7021-8 ####[facility] LABCLIA [id number] [place] [address] Monocytes (Bld) [#/Vol] 0.60 10*3/uL Normal <0.87 [facility] Comment on above: Order Comment: Speci men Type: BLOOD SPECIMENOrdering Facility: [facility] Address: [address] [place] [address] Performed By: #### 5 7021-8 ####[facility] LABCLIA [id number] [place] [address] Monocytes/100 WBC (Bld) 10.5 % Normal [facility] Comment on above: Order Comment: Speci men Type: BLOOD SPECIMENOrdering Facility: [facility] Address: [address] [place] [address] Performed By: #### 5 7021-8 ####[facility] LABCLIA [id number] [place] [address] Neutrophils (Bld) [#/Vol] 4.10 10*3/uL Normal 1.45-7.50 [facility] Comment on above: Order Comment: Speci men Type: BLOOD SPECIMENOrdering Facility: [facility] Address: [address] [place] [address] Performed By: #### 5 7021-8 ####[facility] LABCLIA [id number] [place] [address] Neutrophils/100 WBC (Bld) 71.5 % Normal [facility] Comment on above: Order Comment: Speci men Type: BLOOD SPECIMENOrdering Facility: [facility] Address: [address] [place] [address] Performed By: #### 5 7021-8 ####[facility] LABCLIA [id number] [place] [address] Nucleated RBC (Bld) [#/Vol] 10*3/uL Normal <0.01 [facility] Comment on above: Order Comment: Speci men Type: BLOOD SPECIMENOrdering Facility: [facility] Address: [address] [place] [address] Performed By: #### 5 7021-8 ####[facility] LABCLIA [id number] [place] [address] Nucleated RBC/100 WBC (Bld) [Ratio] 0.0 /100 WBC Normal [facility] Comment on above: Order Comment: Speci men Type: BLOOD SPECIMENOrdering Facility: [facility] Address: [address] [place] [address] Performed By: #### 5 7021-8 ####[facility] LABIA [id number] [place] [address] Platelet mean volume (Bld) [Entitic vol] 10.0 fL Normal 9.0-12.7 [facility] Comment on above: Order Comment: Speci men Type: BLOOD SPECIMENOrdering Facility: [facility] Address: [address] [place] [address] Performed By: #### 5 7021-8 ####[facility] LABCLIA [id number] [place] [address] Platelets (Bld) [#/Vol] 174 10*3/uL Normal 150-400 [facility] Comment on above: Order Comment: Speci men Type: BLOOD SPECIMENOrdering Facility: [facility] Address: [address] [place] [address] Performed By: #### 5 7021-8 ####[facility] LABCLIA [id number] [place] [address] RBC (Bld) [#/Vol] 4.36 10*6/uL Normal 4.20-6.00 [facility] Comment on above: Order Comment: Speci men Type: BLOOD SPECIMENOrdering Facility: [facility] Address: [address] [place] [phone] Performed By: #### 5 7021-8 ####[facility] LABCLIA [id number] [place] [address] WBC (Bld) [#/Vol] 5.74 10*3/uL Normal 3.70-11.00 [facility] Comment on above: Order Comment: Speci men Type: BLOOD SPECIMENOrdering Facility: [facility] Address: [address] [place] [phone] Performed By: #### 5 7021-8 ####[facility] LABCLIA [id number] [place] [address] CNOVSPon 12-17-2021 CNOVSP Visit (SP) Office (HEMASA) GOPAL YATES ([id number]) 1965 M Date Time Provider Department 12/17/21 2:15 PM CONRAD ROJAS During your visit today, we recorded the following information about you: Temperature Pulse Respiration Blood pressure 97.7 degrees 56/minute 16/minute 132/65 Weight Height 87.8 kg 1.93 m Conrad Rojas MD 12/17/2021 4:03 PM Signed NAME: Gopal Yates [facility] NO.: [id number] DATE OF SERVICE: December 17, 2021 (Bob) Some elements in this clinic note that [...] possible Aranesp. 3. Will obtain records from [facility] mainly interested in IV Iron dates. CURRENT [...] completed 5 doses of IV iron at [facility]. Initial Visit, October 02, 2021: Gopal Yates [...] 12/17/2021 174 (more content not included)... Normal [facility] Comprehensive metabolic 2000 panelon 12-17-2021 Albumin [Mass/Vol] 3.4 g/dL Low 3.9-4.9 [facility] Comment on above: Order Comment: Speci men Type: BLOOD SPECIMENOrdering Facility: [facility] Address: [address] [place] [address] Performed By: #### 2 4323-8 ####[facility] LABCLIA [id number] [place] [address] ALP [Catalytic activity/Vol] 159 U/L High 38-113 [facility] Comment on above: Order Comment: Speci men Type: BLOOD SPECIMENOrdering Facility: [facility] Address: [address] [place] [address] Performed By: #### 2 4323-8 ####[facility] LABCLIA [id number] [place] [address] ALT [Catalytic activity/Vol] 12 U/L Normal 10-54 [facility] Comment on above: Order Comment: Speci men Type: BLOOD SPECIMENOrdering Facility: [facility] Address: [address] [place] [address] Performed By: #### 2 4323-8 ####[facility] LABCLIA [id number] [place] [address] Anion gap [Moles/Vol] 9 mmol/L Normal 9-18 [facility] Comment on above: Order Comment: Speci men Type: BLOOD SPECIMENOrdering Facility: [facility] Address: [address] [place] [address] Performed By: #### 2 4323-8 ####[facility] LABCLIA [id number] [place] [address] AST [Catalytic activity/Vol] 14 U/L Normal 14-40 [facility] Comment on above: Order Comment: Speci men Type: BLOOD SPECIMENOrdering Facility: [facility] Address: [address] [place] [address] Performed By: #### 2 4323-8 ####[facility] LABCLIA [id number] [place] [address] Bilirubin [Mass/Vol] 0.4 mg/dL Normal 0.2-1.3 [facility] Comment on above: Order Comment: Speci men Type: BLOOD SPECIMENOrdering Facility: [facility] Address: [address] [place] [address] Performed By: #### 2 4323-8 ####[facility] LABCLIA [id number] [place] [address] Calcium [Mass/Vol] 8.3 mg/dL Low 8.5-10.2 [facility] Comment on above: Order Comment: Speci men Type: BLOOD SPECIMENOrdering Facility: [facility] Address: [address] [place] [address] Performed By: #### 2 4323-8 ####[facility] LABCLIA [id number] [place] [address] Chloride [Moles/Vol] 108 mmol/L High 97-105 [facility] Comment on above: Order Comment: Speci men Type: BLOOD SPECIMENOrdering Facility: [facility] Address: [address] [place] [address] Performed By: #### 2 4323-8 ####[facility] LABCLIA [id number] [place] [address] CO2 [Moles/Vol] 21 mmol/L Low 22-30 [facility] Comment on above: Order Comment: Speci men Type: BLOOD SPECIMENOrdering Facility: [facility] Address: [address] [place] [address] Performed By: #### 2 4323-8 ####[facility] LABCLIA [id number] [place] [address] Creatinine [Mass/Vol] 3.84 mg/dL High 0.73-1.22 [facility] Comment on above: Order Comment: Speci men Type: BLOOD SPECIMENOrdering Facility: [facility] Address: [address] [place] [address] Performed By: #### 2 4323-8 ####[facility] LABCLIA [id number] [place] [address] ESTIMATED GLOMERULAR FILTRATION RATE 17 mL/min/1.73m??? Low >=60 [facility] Comment on above: Order Comment: Speci men Type: BLOOD SPECIMENOrdering Facility: [facility] Address: [address] [phone] Result Comment: Trixie mated Glomerular Filtration Rate [...] actual GFR. Performed By: #### 2 4323-8 ####[facility] LABCLIA [id number] [place] [address] Glucose [Mass/Vol] 87 mg/dL Normal 74-99 [facility] Comment on above: Order Comment: Speci men Type: BLOOD SPECIMENOrdering Facility: [facility] Address: [address] [place] [address] Result Comment: The [place] Diabetes Association (ADA) provides guidance for cutoff [...] Standards of Medical Care in Diabetes 2016, [place] [employer]. Diabetes Care. 2016.39(Suppl 1). Performed By: #### 2 4323-8 ####[facility] LABCLIA [id number] [place] [address] Potassium [Moles/Vol] 4.0 mmol/L Normal 3.7-5.1 [facility] Comment on above: Order Comment: Speci men Type: BLOOD SPECIMENOrdering Facility: [facility] Address: [address] [phone] Performed By: #### 2 4323-8 ####[facility] LABCLIA [id number] [place] [address] Protein [Mass/Vol] 6.8 g/dL Normal 6.3-8.0 [facility] Comment on above: Order Comment: Speci men Type: BLOOD SPECIMENOrdering Facility: [facility] Address: [address] [place] [address] Performed By: #### 2 4323-8 ####[facility] LABCLIA [id number] [place] [address] Sodium [Moles/Vol] 138 mmol/L Normal 136-144 [facility] Comment on above: Order Comment: Speci men Type: BLOOD SPECIMENOrdering Facility: [facility] Address: [address] [place] [address] Performed By: #### 2 4323-8 ####[facility] LABCLIA [id number] [place] [address] Urea nitrogen [Mass/Vol] 50 mg/dL High 9-24 [facility] Comment on above: Order Comment: Speci men Type: BLOOD SPECIMENOrdering Facility: [facility] Address: [address] [place] [address] Performed By: #### 2 4323-8 ####[facility] LABCLIA [id number] [place] [address] HEP B SURFACE ANTIGEN SCREEN on 12-05-2021 HBsAg Screen Negative Normal Negative [facility] Comment on above: Performed By: #### H BSANS #### [facility] [address] [place], [place] [address] Dr. Shilo Lam PTH INTACTon 12-05-2021 PTH, Intact 62 pg/mL Normal 15-65 [facility] Comment on above: Performed By: #### V ITAD, FERR, FETIBC, B12FOL #### [facility] [address] [place], [place] [address] Dr. Shilo Lam VIT D 25-[place] LABCORPon 2021 Vitamin D, 25-Hydroxy 50.9 ng/mL Normal 30.0-100.0 [facility] Comment on above: Result Comment: Laura min D deficiency has been defined by the [place] of [employer] and an Endocrine Society practice guideline as a level of serum 25-OH vitamin D less than 20 ng/mL (1,2). The Endocrine Society went on to further define vitamin D insufficiency as a level between 21 and 29 ng/mL (2). 1. IOM ([place] [employer]). 2010. Dietary reference intakes for calcium and D. [place]: The National Academies Press. 2. Sherine MF, Violetta MCDONALD, [place] REY, et al. Evaluation, treatment, and prevention of vitamin D deficiency: an Endocrine Society clinical practice guideline. JCEM. 2010; 96(7):1911-30. Performed By: #### H [facility] #### [facility] [address] [place] [address] Dr. Shilo Garzon 12-04-2021 AILYNN Telephone (HEMASA) GOPAL YATES JR ([id number]) 1965 M Date Time Provider Department 12/04/21 MONIK DOTSON During your visit today, we recorded the following information about you: Dana Simpson [facility] 12/04/2021 10:17 AM Signed Brionna from [facility] infusion center called back regarding patients iron infusions. She said he got 2 sets of 5 doses. Dates of infusion are: 07/22/21, 07/31/21, 08/06/21, 08/13/21, 08/20/21 10/20/21, 10/27/21, 11/03/21, 11/10/21, 11/17/21 Monik Dotson APRN.CNP 12/04/2021 11:47 AM Signed Thanks! Monik Dotson APRN.ACCT EXEC Allergies As of Date: 12/04/2021 Noted Allergy Reaction SULFA (SULFONAMIDE ANTIBIOTICS) 10/01/2021 16 - Unknown Date Reviewed: 12/04/2021 Reviewed by: Monik Dotson APRN.ACCT EXEC - Fully Assessed Reason for Visit: Infusions [...] Status:Closed by DANA APPLE on 12/04/21 Normal [facility] FERRITINon 12-04-2021 Ferritin [Mass/Vol] 272.0 ng/mL Normal 26.0-388.0 [facility] Comment on above: Performed By: #### H BSANS #### [facility] [address] [place] [address] [address] Shilo Lam IRON AND TIBCon 12-04-2021 % SATURATION 32.8 % Normal [facility] Comment on above: Performed By: #### H BSANS #### [facility] [address] [place], [place] [address] Dr. Shilo Lam Iron [Mass/Vol] 57.0 ug/dL Critically low 65.0-175.0 [facility] Comment on above: Performed By: #### H BSANS #### [facility] [address] [place] [address] Dr. Shilo Lam TIBC DIRECT 174.0 ug/dL Critically low 250.0-450.0 [facility] Comment on above: Performed By: #### H BSANS #### [facility] [address] [place] [address] Dr. Shilo Lam MAGNESIUMon 12-04-2021 Magnesium [Mass/Vol] 1.9 mg/dL Normal 1.8-2.4 [facility] Comment on above: Performed By: #### H BSANS #### [facility] [address] [place] [address] Dr. Shilo Lam PROF 14(COMP METB)on 022 Albumin [Mass/Vol] 2.9 g/dL Critically low 3.4-5.0 [facility] Comment on above: Performed By: #### H BSANS #### [facility] [address] [place] [address] Dr. Shilo Lam Albumin/Globulin [Mass ratio] 0.6 {ratio} Normal [facility] Comment on above: Performed By: #### H BSANS #### [facility] [address] [place] [address] Dr. Shilo Lam ALP [Catalytic activity/Vol] 150 U/L Critically high 46-116 [facility] Comment on above: Performed By: #### H BSANS #### [facility] [address] [place] [address] Dr. Shilo Lam ALT [Catalytic activity/Vol] 21 U/L Normal 16-63 [facility] Comment on above: Performed By: #### H BSANS #### [facility] [address] [place] [address] Dr. Shilo Lam Anion gap [Moles/Vol] 14.7 mmol/L Normal [facility] Comment on above: Performed By: #### H BSANS #### [facility] [address] [place] [address] Dr. Shilo Lam AST [Catalytic activity/Vol] 19 U/L Normal 15-37 [facility] Comment on above: Performed By: #### H BSANS #### [facility] [address] [address] [address] Shilo Lam Bilirubin [Mass/Vol] 0.6 mg/dL Normal 0.2-1.0 [facility] Comment on above: Performed By: #### H BSANS #### [facility] [address] [address] [address] Shilo Lam Calcium [Mass/Vol] 8.4 mg/dL Critically low 8.5-10.1 [facility] Comment on above: Performed By: #### H BSANS #### [facility] [address] [place] [address] Dr. Shilo Lam Chloride [Moles/Vol] 109 mmol/L Critically high 98-107 [facility] Comment on above: Performed By: #### H BSANS #### [facility] [address] [place] [address] Dr. Shilo Lam CO2 [Moles/Vol] 20.4 mmol/L Critically low 21.0-32.0 [facility] Comment on above: Performed By: #### H BSANS #### [facility] [address] [place] [address] Dr. Shilo Lam Creatinine [Mass/Vol] 3.71 mg/dL Critically high 0.70-1.30 [facility] Comment on above: Performed By: #### H BSANS #### [facility] [address] [place] [address] Dr. Shilo Lam EGFR-AF SAMOAN 21 mL/min/1.73m2 Critically low >=60 [facility] Comment on above: Performed By: #### H BSANS #### [facility] [address] [place] [address] Dr. Shilo Lam EGFR-NON AF SAMOAN 17 mL/min/1.73m2 Critically low >=60 [facility] Comment on above: Performed By: #### H BSANS #### [facility] [address] [place] [address] Dr. Shilo Lam Globulin (S) [Mass/Vol] 4.5 g/dL Normal T [facility] Comment on above: Performed By: #### H BSANS #### [facility] [address] [place] [address] Dr. Shilo Lam Glucose [Mass/Vol] 87 mg/dL Normal 74-106 [facility] Comment on above: Performed By: #### H BSANS #### [facility] [address] [place] [address] Dr. Shilo Lam Potassium [Moles/Vol] 4.1 mmol/L Normal 3.5-5.1 [facility] Comment on above: Performed By: #### H BSANS #### [facility] [address] [place] [address] Dr. Shilo Lam Protein [Mass/Vol] 7.4 g/dL Normal 6.4-8.2 [facility] Comment on above: Performed By: #### H BSANS #### [facility] [address] [place] [address] Dr. Shilo Lam Sodium [Moles/Vol] 140 mmol/L Normal 136-145 [facility] Comment on above: Performed By: #### H BSANS #### [facility] [address] [place] [address] Dr. Shilo Lam Urea nitrogen [Mass/Vol] 53.0 mg/dL Critically high 7.0-18.0 [facility] Comment on above: Performed By: #### H BSANS #### [facility] [address] [place] [address] Dr. Shilo Lam Urea nitrogen/Creatinine [Mass ratio] 14.3 mg/mg Normal [facility] Comment on above: Performed By: #### H BSANS #### [facility] [address] [place] [address] Dr. Shilo Lam UA RANDOMon 12-04-2021 Bilirubin Ql (U) Negative Normal NEGATIVE [facility] Comment on above: Performed By: #### H H #### [facility] [address] [place] [address] Dr. Shilo Lam Clarity (U) CLEAR Normal CLEAR [facility] Comment on above: Performed By: #### H H #### [facility] [address] [address] [address] Shilo Lam Color (U) YELLOW Normal YELLOW [facility] Comment on above: Performed By: #### H H #### [facility] [address] [place] [address] Dr. Shilo Lam Glucose Ql (U) Negative Normal NEGATIVE [facility] Comment on above: Performed By: #### H H #### [facility] [address] [address] [address] Shilo Lam Hemoglobin Ql (U) Negative Normal NEGATIVE [facility] Comment on above: Performed By: #### H H #### [facility] [address] [place] [address] Dr. Shilo Lam Ketones Ql (U) Negative Normal NEGATIVE [facility] Comment on above: Performed By: #### H H #### [facility] [address] [place] [address] Dr. Shilo Lam LEUKOCYTES Negative Normal NEGATIVE [facility] Comment on above: Performed By: #### H H #### [facility] [address] [place] [address] Dr. Shilo Lam Nitrite Ql (U) Negative Normal NEGATIVE [facility] Comment on above: Performed By: #### H H #### [facility] [address] [place] [address] Dr. Shilo Lam pH (U) 6.5 [pH] Normal 5-9 [facility] Comment on above: Performed By: #### H H #### [facility] [address] [place] [address] Dr. Shilo Lam SPEC GRAVITY 1.015 Normal 1.005-<=1.025 [facility] Comment on above: Performed By: #### H H #### [facility] [address] [place] [address] Dr. Shilo Lam UA PROTEIN Negative Normal NEGATIVE/ TRACE [facility] Comment on above: Performed By: #### H H #### [facility] [address] [place] [address] Dr. Shilo Lam Urobilinogen Qn (U) 0.2 {Gama'U}/dL Normal 0.2 - 1. 0 [facility] Comment on above: Performed By: #### H H #### [facility] [address] [place] [address] Dr. Shilo Lam URIC ACID SERUMon 12-04-2021 Urate [Mass/Vol] 5.6 mg/dL Normal 3.5-7.2 [facility] Comment on above: Performed By: #### H BSANS #### [facility] [address] [place] [address] Dr. Shilo Lam URINE T PROTEIN CREAT RATIOo n 12-04-2021 Protein (U) [Mass/Vol] 648.0 mg/dL Critically high <=12.0 [facility] Comment on above: Performed By: #### V ITAD, FERR, FETIBC, B12FOL #### [facility] [address] [place] [address] Dr. Shilo Lam UR PROT CREAT RAT 11.10 Normal [facility] Comment on above: Performed By: #### V ITAD, FERR, FETIBC, B12FOL #### [facility] [address] [place] [address] Dr. Shilo Lam URINE CREAT 58.37 mg/dL Normal 20.00-300.00 [facility] Comment on above: Performed By: #### V ITAD, FERR, FETIBC, B12FOL #### [facility] [address] [place] [address] Dr. Shilo Lam VIT B12 AND FOLATEon 022 Cobalamin (Vitamin B12) [Mass/Vol] 600.0 pg/mL Normal 193.0-986.0 [facility] Comment on above: Performed By: #### H BSANS #### [facility] [address] [place] [address] Dr. Shilo Lam FOLATE 9.00 ng/mL Normal 8.60-58.90 [facility] Comment on above: Performed By: #### H BSANS #### [facility] [address] [place], [place] [address] Dr. Shilo Lam CBC W Auto Differential pane l (Bld)on 12-03-2021 Basophils (Bld) [#/Vol] 0.03 10*3/uL Normal <0.11 [facility] Comment on above: Order Comment: Speci men Type: BLOOD SPECIMENOrdering Facility: [facility] Address: [address] [place] [address] Performed By: #### 5 7021-8 ####[facility] LABCLIA [id number] [place] [address] Basophils/100 WBC (Bld) 0.4 % Normal [facility] Comment on above: Order Comment: Speci men Type: BLOOD SPECIMENOrdering Facility: [facility] Address: [address] [place] [address] Performed By: #### 5 7021-8 ####[facility] LABCLIA [id number] [place] [address] Differential cell count method Nom (Bld) Auto Normal [facility] Comment on above: Order Comment: Speci men Type: BLOOD SPECIMENOrdering Facility: [facility] Address: [address] [place] [address] Performed By: #### 5 7021-8 ####[facility] LABCLIA [id number] [place] [address] Eosinophils (Bld) [#/Vol] 0.24 10*3/uL Normal <0.46 [facility] Comment on above: Order Comment: Speci men Type: BLOOD SPECIMENOrdering Facility: [facility] Address: [address] [place] [address] Performed By: #### 5 7021-8 ####[facility] LABCLIA [id number] [place] [address] Eosinophils/100 WBC (Bld) 3.5 % Normal [facility] Comment on above: Order Comment: Speci men Type: BLOOD SPECIMENOrdering Facility: [facility] Address: [address] [place] [address] Performed By: #### 5 7021-8 ####[facility] LABCLIA [id number] [place] [address] Erythrocyte distribution width (RBC) [Ratio] 15.4 % High 11.5-15.0 [facility] Comment on above: Order Comment: Speci men Type: BLOOD SPECIMENOrdering Facility: [facility] Address: [address] [place] [address] Performed By: #### 5 7021-8 ####[facility] LABIA [id number] [place] [address] Hematocrit (Bld) [Volume fraction] 36.6 % Low 39.0-51.0 [facility] Comment on above: Order Comment: Speci men Type: BLOOD SPECIMENOrdering Facility: [facility] Address: [address] [place] [address] Performed By: #### 5 7021-8 ####[facility] LABIA [id number] [place] [address] Hemoglobin (Bld) [Mass/Vol] 11.8 g/dL Low 13.0-17.0 [facility] Comment on above: Order Comment: Speci men Type: BLOOD SPECIMENOrdering Facility: [facility] Address: [address] [place] [address] Performed By: #### 5 7021-8 ####[facility] LABCLIA [id number] [place] [address] IMMATURE GRAN % 0.3 % Normal [facility] Comment on above: Order Comment: Speci men Type: BLOOD SPECIMENOrdering Facility: [facility] Address: [address] [place] [address] Performed By: #### 5 7021-8 ####[facility] LABCLIA [id number] [place] [address] IMMATURE GRAN ABS <0.03 Normal <0.10 [facility] Comment on above: Order Comment: Speci men Type: BLOOD SPECIMENOrdering Facility: [facility] Address: [address] [place] [address] Performed By: #### 5 7021-8 ####[facility] LABIA [id number] [place] [address] Lymphocytes (Bld) [#/Vol] 0.72 10*3/uL Low 1.00-4.00 [facility] Comment on above: Order Comment: Speci men Type: BLOOD SPECIMENOrdering Facility: [facility] Address: [address] [place] [address] Performed By: #### 5 7021-8 ####[facility] LABIA [id number] [place] [address] Lymphocytes/100 WBC (Bld) 10.6 % Normal [facility] Comment on above: Order Comment: Speci men Type: BLOOD SPECIMENOrdering Facility: [facility] Address: [address] [place] [address] Performed By: #### 5 7021-8 ####[facility] LABIA [id number] [place] [address] MCH (RBC) [Entitic mass] 27.8 pg Normal 26.0-34.0 [facility] Comment on above: Order Comment: Speci men Type: BLOOD SPECIMENOrdering Facility: [facility] Address: [address] [place] [address] Performed By: #### 5 7021-8 ####[facility] LABIA [id number] [place] [address] MCHC (RBC) [Mass/Vol] 32.2 g/dL Normal 30.5-36.0 [facility] Comment on above: Order Comment: Speci men Type: BLOOD SPECIMENOrdering Facility: [facility] Address: [address] [place] [address] Performed By: #### 5 7021-8 ####[facility] LABCLIA [id number] [place] [address] MCV (RBC) [Entitic vol] 86.3 fL Normal 80.0-100.0 [facility] Comment on above: Order Comment: Speci men Type: BLOOD SPECIMENOrdering Facility: [facility] Address: [address] [place] [address] Performed By: #### 5 7021-8 ####[facility] LABIA [id number] [place] [address] Monocytes (Bld) [#/Vol] 0.82 10*3/uL Normal <0.87 [facility] Comment on above: Order Comment: Speci men Type: BLOOD SPECIMENOrdering Facility: [facility] Address: [address] [place] [address] Performed By: #### 5 7021-8 ####[facility] LABIA [id number] [place] [address] Monocytes/100 WBC (Bld) 12.1 % Normal [facility] Comment on above: Order Comment: Speci men Type: BLOOD SPECIMENOrdering Facility: [facility] Address: [address] [place] [address] Performed By: #### 5 7021-8 ####[facility] LABCLIA [id number] [place] [address] Neutrophils (Bld) [#/Vol] 4.95 10*3/uL Normal 1.45-7.50 [facility] Comment on above: Order Comment: Speci men Type: BLOOD SPECIMENOrdering Facility: [facility] Address: [address] [place] [address] Performed By: #### 5 7021-8 ####[facility] LABCLIA [id number] [place] [address] Neutrophils/100 WBC (Bld) 73.1 % Normal [facility] Comment on above: Order Comment: Speci men Type: BLOOD SPECIMENOrdering Facility: [facility] Address: [address] [place] [address] Performed By: #### 5 7021-8 ####[facility] LABCLIA [id number] [place] [address] Nucleated RBC (Bld) [#/Vol] 10*3/uL Normal <0.01 [facility] Comment on above: Order Comment: Speci men Type: BLOOD SPECIMENOrdering Facility: [facility] Address: [address] [place] [address] Performed By: #### 5 7021-8 ####[facility] LABCLIA [id number] [place] [address] Nucleated RBC/100 WBC (Bld) [Ratio] 0.0 /100 WBC Normal [facility] Comment on above: Order Comment: Speci men Type: BLOOD SPECIMENOrdering Facility: [facility] Address: [address] [place] [address] Performed By: #### 5 7021-8 ####[facility] LABCLIA [id number] [place] [address] Platelet mean volume (Bld) [Entitic vol] 9.9 fL Normal 9.0-12.7 [facility] Comment on above: Order Comment: Speci men Type: BLOOD SPECIMENOrdering Facility: [facility] Address: [address] [place] [address] Performed By: #### 5 7021-8 ####[facility] LABCLIA [id number] [place] [address] Platelets (Bld) [#/Vol] 136 10*3/uL Low 150-400 [facility] Comment on above: Order Comment: Speci men Type: BLOOD SPECIMENOrdering Facility: [facility] Address: [address] [place] [address] Performed By: #### 5 7021-8 ####[facility] LABIA [id number] [place] [address] RBC (Bld) [#/Vol] 4.24 10*6/uL Normal 4.20-6.00 [facility] Comment on above: Order Comment: Speci men Type: BLOOD SPECIMENOrdering Facility: [facility] Address: [address] [place] [address] Performed By: #### 5 7021-8 ####[facility] LABIA [id number] [place] [address] WBC (Bld) [#/Vol] 6.78 10*3/uL Normal 3.70-11.00 [facility] Comment on above: Order Comment: Speci men Type: BLOOD SPECIMENOrdering Facility: [facility] Address: [address] [place] [address] Performed By: #### 5 7021-8 ####[facility] LABIA [id number] [place] [address] CNOVSPon 12-03-2021 OVS Visit (SP) Office ([facility]) GOPAL YATES ([id number]) 1965 M Date Time Provider Department 12/03/21 2:00 PM MONIK DOTSON During your visit today, we recorded the following information about you: Temperature Pulse Respiration Blood pressure 97.6 degrees 60/minute 16/minute 142/69 Weight Height 89.6 kg 1.93 m Monik Dotson APRN.CNP 12/03/2021 2:17 PM Signed NAME: Gopal Yates [facility] NO.: [id number] DATE OF SERVICE: December 03, 2021 Referring [...] possible Aranesp. 3. Will obtain records from [facility] mainly interested in IV Iron dates. CURRENT [...] completed 5 doses of IV iron at [facility]. Initial Visit, October 02, 2021: Gopal Yates [...] (HCC) 10/08 (more content not included)... Normal [facility] Comprehensive metabolic 2000 panelon 12-03-2021 Albumin [Mass/Vol] 3.5 g/dL Low 3.9-4.9 [facility] Comment on above: Order Comment: Speci men Type: BLOOD SPECIMENOrdering Facility: [facility] Address: [address] [place] [address] Performed By: #### 2 4323-8 ####[facility] LABCLIA [id number] [place] [address] ALP [Catalytic activity/Vol] 166 U/L High 38-113 [facility] Comment on above: Order Comment: Speci men Type: BLOOD SPECIMENOrdering Facility: [facility] Address: [address] [place] [address] Performed By: #### 2 4323-8 ####[facility] LABCLIA [id number] [place] [address] ALT [Catalytic activity/Vol] 13 U/L Normal 10-54 [facility] Comment on above: Order Comment: Speci men Type: BLOOD SPECIMENOrdering Facility: [facility] Address: [address] [place] [address] Performed By: #### 2 4323-8 ####[facility] LABCLIA [id number] [place] [address] Anion gap [Moles/Vol] 10 mmol/L Normal 9-18 [facility] Comment on above: Order Comment: Speci men Type: BLOOD SPECIMENOrdering Facility: [facility] Address: [address] [place] [address] Performed By: #### 2 4323-8 ####[facility] LABCLIA [id number] [place] [address] AST [Catalytic activity/Vol] 17 U/L Normal 14-40 [facility] Comment on above: Order Comment: Speci men Type: BLOOD SPECIMENOrdering Facility: [facility] Address: [address] [place] [address] Performed By: #### 2 4323-8 ####[facility] LABCLIA [id number] [place] [address] Bilirubin [Mass/Vol] 0.5 mg/dL Normal 0.2-1.3 [facility] Comment on above: Order Comment: Speci men Type: BLOOD SPECIMENOrdering Facility: [facility] Address: [address] [place] [address] Performed By: #### 2 4323-8 ####[facility] LABCLIA [id number] [place] [address] Calcium [Mass/Vol] 8.9 mg/dL Normal 8.5-10.2 [facility] Comment on above: Order Comment: Speci men Type: BLOOD SPECIMENOrdering Facility: [facility] Address: [address] [place] [address] Performed By: #### 2 4323-8 ####[facility] LABCLIA [id number] [place] [address] Chloride [Moles/Vol] 112 mmol/L High 97-105 [facility] Comment on above: Order Comment: Speci men Type: BLOOD SPECIMENOrdering Facility: [facility] Address: [address] [place] [address] Performed By: #### 2 4323-8 ####[facility] LABCLIA [id number] [place] [address] CO2 [Moles/Vol] 20 mmol/L Low 22-30 [facility] Comment on above: Order Comment: Speci men Type: BLOOD SPECIMENOrdering Facility: [facility] Address: [address] [place], [place] [address] Performed By: #### 2 4323-8 ####[facility] LABCLIA [id number] [place] [address] Creatinine [Mass/Vol] 3.74 mg/dL High 0.73-1.22 [facility] Comment on above: Order Comment: Speci men Type: BLOOD SPECIMENOrdering Facility: [facility] Address: [address] [place] [address] Performed By: #### 2 4323-8 ####[facility] LABCLIA [id number] [place] [address] ESTIMATED GLOMERULAR FILTRATION RATE 18 mL/min/1.73m??? Low >=60 [facility] Comment on above: Order Comment: Fabi mcdonnell Type: BLOOD SPECIMENOrdering Facility: [facility] Address: [address] [place] [address] Result Comment: Trixie mated Glomerular Filtration Rate [...] actual GFR. Performed By: #### 2 4323-8 ####[facility] LABCLIA [id number] [place] [address] Glucose [Mass/Vol] 111 mg/dL High 74-99 [facility] Comment on above: Order Comment: Fabi mcdonnell Type: BLOOD SPECIMENOrdering Facility: [facility] Address: [address] [place] [address] Result Comment: The [place] [employer] (ADA) provides guidance for cutoff [...] Standards of Medical Care in Diabetes 2016, [place] [employer]. Diabetes Care. 2016.39(Suppl 1). Performed By: #### 2 4323-8 ####[facility] LABCLIA [id number] [place] [address] Potassium [Moles/Vol] 4.1 mmol/L Normal 3.7-5.1 [facility] Comment on above: Order Comment: Speci men Type: BLOOD SPECIMENOrdering Facility: [facility] Address: [address] [place] [address] Performed By: #### 2 4323-8 ####[facility] LABCLIA [id number] [place] [address] Protein [Mass/Vol] 6.6 g/dL Normal 6.3-8.0 [facility] Comment on above: Order Comment: Speci men Type: BLOOD SPECIMENOrdering Facility: [facility] Address: [address] [place] [address] Performed By: #### 2 4323-8 ####[facility] LABCLIA [id number] [place] [address] Sodium [Moles/Vol] 142 mmol/L Normal 136-144 [facility] Comment on above: Order Comment: Speci men Type: BLOOD SPECIMENOrdering Facility: [facility] Address: [address] [place] [address] Performed By: #### 2 4323-8 ####[facility] LABCLIA [id number] [place] [address] Urea nitrogen [Mass/Vol] 52 mg/dL High 9-24 [facility] Comment on above: Order Comment: Speci men Type: BLOOD SPECIMENOrdering Facility: [facility] Address: [address] [place] [address] Performed By: #### 2 4323-8 ####[facility] LABCLIA [id number] [place] [address] CBC W Auto Differential pane l (Bld)on 11-19-2021 Basophils (Bld) [#/Vol] 10*3/uL Normal <0.11 [facility] Comment on above: Order Comment: Speci men Type: BLOOD SPECIMEN [facility]: [facility] Address: [address] [place] [address] Performed By: #### 5 7021-8 #### [facility] CLIA [id number] [address] [place] [address] Basophils/100 WBC (Bld) 0.4 % Normal [facility] Comment on above: Order Comment: Speci men Type: BLOOD SPECIMEN [facility]ing Facility: [facility] Address: [address] [place] [address] Performed By: #### 5 7021-8 #### [facility] CLIA [id number] [address] [place] [address] Differential cell count method Nom (Bld) Auto Normal [facility] Comment on above: Order Comment: Speci men Type: BLOOD SPECIMEN Ordering Facility: [facility] Address: [address] [place] [address] Performed By: #### 5 7021-8 #### [facility] CLIA [id number] [address] [place] [address] 57309 Eosinophils (Bld) [#/Vol] 0.16 10*3/uL Normal <0.46 [facility] Comment on above: Order Comment: Speci men Type: BLOOD SPECIMEN Ordering Facility: [facility] Address: [address] [place] [address] Performed By: #### 5 7021-8 #### [facility] CLIA [id number] [address] [place] [address] 98904 Eosinophils/100 WBC (Bld) 2.8 % Normal [facility] Comment on above: Order Comment: Speci men Type: BLOOD SPECIMEN Ordering Facility: [facility] Address: [address] [place] [address] Performed By: #### 5 7021-8 #### [facility] CLIA [id number] [address] [place] [address] 20722 Erythrocyte distribution width (RBC) [Ratio] 15.5 % High 11.5-15.0 [facility] Comment on above: Order Comment: Speci men Type: BLOOD SPECIMEN Ordering Facility: [facility] Address: [address] [place] [address] Performed By: #### 5 7021-8 #### [facility] CLIA [id number] [address] [place] [address] 47147 Hematocrit (Bld) [Volume fraction] 31.7 % Low 39.0-51.0 [facility] Comment on above: Order Comment: Speci men Type: BLOOD SPECIMEN Ordering Facility: [facility] Address: [address] [place] [address] Performed By: #### 5 7021-8 #### [facility] CLIA [id number] [address] [place] [address] 72959 Hemoglobin (Bld) [Mass/Vol] 10.2 g/dL Low 13.0-17.0 [facility] Comment on above: Order Comment: Speci men Type: BLOOD SPECIMEN Ordering Facility: [facility] Address: [address] [place] [address] Performed By: #### 5 7021-8 #### [facility] CLIA [id number] [address] [place] [address] 49757 IMMATURE GRAN % 0.4 % Normal [facility] Comment on above: Order Comment: Speci men Type: BLOOD SPECIMEN Ordering Facility: [facility] Address: [address] [place] [address] Performed By: #### 5 7021-8 #### [facility] CLIA [id number] [address] [place] [address] 61747 IMMATURE GRAN ABS <0.03 Normal <0.10 [facility] Comment on above: Order Comment: Speci men Type: BLOOD SPECIMEN Ordering Facility: [facility] Address: [address] [place] [address] Performed By: #### 5 7021-8 #### [facility] CLIA [id number] [address] [place] [address] 63783 Lymphocytes (Bld) [#/Vol] 0.66 10*3/uL Low 1.00-4.00 [facility] Comment on above: Order Comment: Speci men Type: BLOOD SPECIMEN Ordering Facility: [facility] Address: [address] [place] [address] Performed By: #### 5 7021-8 #### [facility] CLIA [id number] [address] [place] [address] 91847 Lymphocytes/100 WBC (Bld) 11.6 % Normal [facility] Comment on above: Order Comment: Speci men Type: BLOOD SPECIMEN Ordering Facility: [facility] Address: [address] [place] [address] Performed By: #### 5 7021-8 #### [facility] CLIA [id number] [address] [place] [address] 85908 MCH (RBC) [Entitic mass] 27.6 pg Normal 26.0-34.0 [facility] Comment on above: Order Comment: Speci men Type: BLOOD SPECIMEN Ordering Facility: [facility] Address: [address] [place] [address] Performed By: #### 5 7021-8 #### [facility] CLIA [id number] [address] [place] [address] 26678 MCHC (RBC) [Mass/Vol] 32.2 g/dL Normal 30.5-36.0 [facility] Comment on above: Order Comment: Speci men Type: BLOOD SPECIMEN Ordering Facility: [facility] Address: [address] [place], [place] [address] Performed By: #### 5 7021-8 #### [facility] CLIA [id number] [address] [place] [address] 56950 MCV (RBC) [Entitic vol] 85.7 fL Normal 80.0-100.0 [facility] Comment on above: Order Comment: Speci men Type: BLOOD SPECIMEN Ordering Facility: [facility] Address: [address] [place], [place] [address] Performed By: #### 5 7021-8 #### [facility] CLIA [id number] [address] [place] [address] 17146 Monocytes (Bld) [#/Vol] 0.70 10*3/uL Normal <0.87 [facility] Comment on above: Order Comment: Speci men Type: BLOOD SPECIMEN Ordering Facility: [facility] Address: [address] [place], [place] [address] Performed By: #### 5 7021-8 #### [facility] CLIA [id number] [address] [place] [address] 63729 Monocytes/100 WBC (Bld) 12.3 % Normal [facility] Comment on above: Order Comment: Speci men Type: BLOOD SPECIMEN Ordering Facility: [facility] Address: [address] [place] [address] Performed By: #### 5 7021-8 #### [facility] CLIA [id number] [address] [place] [address] 09600 Neutrophils (Bld) [#/Vol] 4.12 10*3/uL Normal 1.45-7.50 [facility] Comment on above: Order Comment: Speci men Type: BLOOD SPECIMEN Ordering Facility: [facility] Address: [address] [place] [address] Performed By: #### 5 7021-8 #### [facility] CLIA [id number] [address] [place] [address] 63523 Neutrophils/100 WBC (Bld) 72.5 % Normal [facility] Comment on above: Order Comment: Speci men Type: BLOOD SPECIMEN Ordering Facility: [facility] Address: [address] [place], [place] [address] Performed By: #### 5 7021-8 #### [facility] CLIA [id number] [address] [place] [address] 21181 Nucleated RBC (Bld) [#/Vol] 10*3/uL Normal <0.01 [facility] Comment on above: Order Comment: Speci men Type: BLOOD SPECIMEN Ordering Facility: [facility] Address: [address] [place], [place] [address] Performed By: #### 5 7021-8 #### [facility] CLIA [id number] [address] [place] [address] 20729 Nucleated RBC/100 WBC (Bld) [Ratio] 0.0 /100 WBC Normal [facility] Comment on above: Order Comment: Speci men Type: BLOOD SPECIMEN Ordering Facility: [facility] Address: [address] [place], [place] [address] Performed By: #### 5 7021-8 #### [facility] CLIA [id number] [address] [place] [address] 59234 Platelet mean volume (Bld) [Entitic vol] 10.0 fL Normal 9.0-12.7 [facility] Comment on above: Order Comment: Speci men Type: BLOOD SPECIMEN Ordering Facility: [facility] Address: [address] [place], [place] [address] Performed By: #### 5 7021-8 #### [facility] CLIA [id number] [address] [place] [address] 36476 Platelets (Bld) [#/Vol] 146 10*3/uL Low 150-400 [facility] Comment on above: Order Comment: Speci men Type: BLOOD SPECIMEN Ordering Facility: [facility] Address: [address] [place], [place] [address] Performed By: #### 5 7021-8 #### [facility] CLIA [id number] [address] [place] [address] 11515 RBC (Bld) [#/Vol] 3.70 10*6/uL Low 4.20-6.00 [facility] Comment on above: Order Comment: Speci men Type: BLOOD SPECIMEN Ordering Facility: [facility] Address: [address] [place], [place] [address] Performed By: #### 5 7021-8 #### [facility] CLIA [id number] [address] [place] [address] WBC (Bld) [#/Vol] 5.68 10*3/uL Normal 3.70-11.00 [facility] Comment on above: Order Comment: Speci men Type: BLOOD SPECIMEN Ordering Facility: [facility] Address: [address] [place] [address] Performed By: #### 5 7021-8 #### [facility] CLIA [id number] [address] [place] [address] Comprehensive metabolic 2000 panelon 11-19-2021 Albumin [Mass/Vol] 3.4 g/dL Low 3.9-4.9 [facility] Comment on above: Order Comment: Speci men Type: BLOOD SPECIMENOrdering Facility: [facility] Address: [address] [place] [address] Performed By: #### 2 4323-8 ####[facility] [id number] [place] [address] ALP [Catalytic activity/Vol] 187 U/L High 38-113 [facility] Comment on above: Order Comment: Speci men Type: BLOOD SPECIMENOrdering Facility: [facility] Address: [address] [place] [address] Performed By: #### 2 4323-8 ####[facility] [id number] [place] [address] ALT [Catalytic activity/Vol] 17 U/L Normal 10-54 [facility] Comment on above: Order Comment: Speci men Type: BLOOD SPECIMENOrdering Facility: [facility] Address: [address] [place] [address] Performed By: #### 2 4323-8 ####[facility] [id number] [place] [address] Anion gap [Moles/Vol] 9 mmol/L Normal 9-18 [facility] Comment on above: Order Comment: Speci men Type: BLOOD SPECIMENOrdering Facility: [facility] Address: [address] [place] [address] Performed By: #### 2 4323-8 ####[facility] [id number] [place] [address] AST [Catalytic activity/Vol] 20 U/L Normal 14-40 [facility] Comment on above: Order Comment: Speci men Type: BLOOD SPECIMENOrdering Facility: [facility] Address: [address] [place] [address] Performed By: #### 2 4323-8 ####[facility] [id number] [place] [address] Bilirubin [Mass/Vol] 0.5 mg/dL Normal 0.2-1.3 [facility] Comment on above: Order Comment: Speci men Type: BLOOD SPECIMENOrdering Facility: [facility] Address: [address] [place] [address] Performed By: #### 2 4323-8 ####[facility] [id number] [place] [address] Calcium [Mass/Vol] 8.5 mg/dL Normal 8.5-10.2 [facility] Comment on above: Order Comment: Speci men Type: BLOOD SPECIMENOrdering Facility: [facility] Address: [address] [place] [address] Performed By: #### 2 4323-8 ####[facility] [id number] [place] [address] Chloride [Moles/Vol] 110 mmol/L High 97-105 [facility] Comment on above: Order Comment: Speci men Type: BLOOD SPECIMENOrdering Facility: [facility] Address: [address] [place] [address] Performed By: #### 2 4323-8 ####[facility] [id number] [place] [address] CO2 [Moles/Vol] 20 mmol/L Low 22-30 [facility] Comment on above: Order Comment: Speci men Type: BLOOD SPECIMENOrdering Facility: [facility] Address: [address] [place] [address] Performed By: #### 2 4323-8 ####[facility] [id number] [place] [address] Creatinine [Mass/Vol] 3.60 mg/dL High 0.73-1.22 [facility] Comment on above: Order Comment: Speci men Type: BLOOD SPECIMENOrdering Facility: [facility] Address: [address] [place] [address] Performed By: #### 2 4323-8 ####[facility] [id number] [place] [address] ESTIMATED GLOMERULAR FILTRATION RATE 19 mL/min/1.73m??? Low >=60 [facility] Comment on above: Order Comment: Speci men Type: BLOOD SPECIMENOrdering Facility: [facility] Address: [address] [place] [address] Result Comment: Trixie mated Glomerular Filtration Rate [...] actual GFR. Performed By: #### 2 4323-8 ####[facility] [id number] [place] [address] Glucose [Mass/Vol] 98 mg/dL Normal 74-99 [facility] Comment on above: Order Comment: Speci men Type: BLOOD SPECIMENOrdering Facility: [facility] Address: [address] [place] [address] Result Comment: The [place] [employer] (ADA) provides guidance for cutoff [...] Standards of Medical Care in Diabetes 2016, [place] [employer]. Diabetes Care. 2016.39(Suppl 1). Performed By: #### 2 4323-8 ####[facility] [id number] [place] [address] Potassium [Moles/Vol] 4.2 mmol/L Normal 3.7-5.1 [facility] Comment on above: Order Comment: Speci men Type: BLOOD SPECIMENOrdering Facility: [facility] Address: [address] [place] [address] Performed By: #### 2 4323-8 ####[facility] [id number] [place] [address] Protein [Mass/Vol] 6.7 g/dL Normal 6.3-8.0 [facility] Comment on above: Order Comment: Speci men Type: BLOOD SPECIMENOrdering Facility: [facility] Address: [address] [place] [address] Performed By: #### 2 4323-8 ####[facility]IA [id number] [place] [address] Sodium [Moles/Vol] 139 mmol/L Normal 136-144 [facility] Comment on above: Order Comment: Speci men Type: BLOOD SPECIMENOrdering Facility: [facility] Address: [address] [address] Performed By: #### 2 4323-8 ####[facility]IA [id number] [place] [address] Urea nitrogen [Mass/Vol] 49 mg/dL High 9-24 [facility] Comment on above: Order Comment: Speci men Type: BLOOD SPECIMENOrdering Facility: [facility] Address: [address] [place] [address] Performed By: #### 2 4323-8 ####[facility]IA [id number] [place] [address] CBC W Auto Differential pane l (Bld)on 11-05-2021 Basophils (Bld) [#/Vol] 0.03 10*3/uL Normal <0.11 [facility] Comment on above: Order Comment: Speci men Type: BLOOD SPECIMENOrdering Facility: [facility] Address: [address] [place] [address] Performed By: #### 5 7021-8 ####[facility]IA [id number] [place] [address] Basophils/100 WBC (Bld) 0.5 % Normal [facility] Comment on above: Order Comment: Speci men Type: BLOOD SPECIMENOrdering Facility: [facility] Address: [address] [place] [address] Performed By: #### 5 7021-8 ####[facility]IA [id number] [place] [address] Differential cell count method Nom (Bld) Auto Normal [facility] Comment on above: Order Comment: Speci men Type: BLOOD SPECIMENOrdering Facility: [facility] Address: [address] [place] [address] Performed By: #### 5 7021-8 ####[facility]IA [id number] [place] [address] Eosinophils (Bld) [#/Vol] 0.22 10*3/uL Normal <0.46 [facility] Comment on above: Order Comment: Speci men Type: BLOOD SPECIMENOrdering Facility: [facility] Address: [address] [place] [address] Performed By: #### 5 7021-8 ####[facility]IA [id number] [place] [address] Eosinophils/100 WBC (Bld) 3.7 % Normal [facility] Comment on above: Order Comment: Speci men Type: BLOOD SPECIMENOrdering Facility: [facility] Address: [address] [place] [address] Performed By: #### 5 7021-8 ####[facility]IA [id number] [place] [address] Erythrocyte distribution width (RBC) [Ratio] 16.0 % High 11.5-15.0 [facility] Comment on above: Order Comment: Speci men Type: BLOOD SPECIMENOrdering Facility: [facility] Address: [address] [place] [address] Performed By: #### 5 7021-8 ####[facility]IA [id number] [place] [address] Hematocrit (Bld) [Volume fraction] 29.0 % Low 39.0-51.0 [facility] Comment on above: Order Comment: Speci men Type: BLOOD SPECIMENOrdering Facility: [facility] Address: [address] [place] [address] Performed By: #### 5 7021-8 ####[facility]IA [id number] [place] [address] Hemoglobin (Bld) [Mass/Vol] 9.5 g/dL Low 13.0-17.0 [facility] Comment on above: Order Comment: Speci men Type: BLOOD SPECIMENOrdering Facility: [facility] Address: [address] [place] [address] Performed By: #### 5 7021-8 ####[facility]IA [id number] [place] [address] IMMATURE GRAN % 0.3 % Normal [facility] Comment on above: Order Comment: Speci men Type: BLOOD SPECIMENOrdering Facility: [facility] Address: [address] [place] [address] Performed By: #### 5 7021-8 ####[facility]IA [id number] [place] [address] IMMATURE GRAN ABS <0.03 Normal <0.10 [facility] Comment on above: Order Comment: Speci men Type: BLOOD SPECIMENOrdering Facility: [facility] Address: [address] [place] [address] Performed By: #### 5 7021-8 ####[facility]IA [id number] [place] [address] Lymphocytes (Bld) [#/Vol] 0.81 10*3/uL Low 1.00-4.00 [facility] Comment on above: Order Comment: Speci men Type: BLOOD SPECIMENOrdering Facility: [facility] Address: [address] [place] [address] Performed By: #### 5 7021-8 ####[facility]IA [id number] [place] [address] Lymphocytes/100 WBC (Bld) 13.7 % Normal [facility] Comment on above: Order Comment: Speci men Type: BLOOD SPECIMENOrdering Facility: [facility] Address: [address] [place] [address] Performed By: #### 5 7021-8 ####[facility]IA [id number] [place] [address] MCH (RBC) [Entitic mass] 27.8 pg Normal 26.0-34.0 [facility] Comment on above: Order Comment: Speci men Type: BLOOD SPECIMENOrdering Facility: [facility] Address: [address] [place] [address] Performed By: #### 5 7021-8 ####[facility]IA [id number] [place] [address] MCHC (RBC) [Mass/Vol] 32.8 g/dL Normal 30.5-36.0 [facility] Comment on above: Order Comment: Speci men Type: BLOOD SPECIMENOrdering Facility: [facility] Address: [address] [place] [address] Performed By: #### 5 7021-8 ####[facility]CLIA [id number] [place] [address] MCV (RBC) [Entitic vol] 84.8 fL Normal 80.0-100.0 [facility] Comment on above: Order Comment: Speci men Type: BLOOD SPECIMENOrdering Facility: [facility] Address: [address] [place] [address] Performed By: #### 5 7021-8 ####[facility]IA [id number] [place] [address] Monocytes (Bld) [#/Vol] 0.85 10*3/uL Normal <0.87 [facility] Comment on above: Order Comment: Speci men Type: BLOOD SPECIMENOrdering Facility: [facility] Address: [address] [place] [address] Performed By: #### 5 7021-8 ####[facility]CLIA [id number] [place] [address] Monocytes/100 WBC (Bld) 14.4 % Normal [facility] Comment on above: Order Comment: Speci men Type: BLOOD SPECIMENOrdering Facility: [facility] Address: [address] [place] [address] Performed By: #### 5 7021-8 ####[facility]CLIA [id number] [place] [address] Neutrophils (Bld) [#/Vol] 3.97 10*3/uL Normal 1.45-7.50 [facility] Comment on above: Order Comment: Speci men Type: BLOOD SPECIMENOrdering Facility: [facility] Address: [address] [place] [address] Performed By: #### 5 7021-8 ####[facility]IA [id number] [place] [address] Neutrophils/100 WBC (Bld) 67.4 % Normal [facility] Comment on above: Order Comment: Speci men Type: BLOOD SPECIMENOrdering Facility: [facility] Address: [address] [place] [address] Performed By: #### 5 7021-8 ####[facility]IA [id number] [place] [address] Nucleated RBC (Bld) [#/Vol] 10*3/uL Normal <0.01 [facility] Comment on above: Order Comment: Speci men Type: BLOOD SPECIMENOrdering Facility: [facility] Address: [address] [place] [address] Performed By: #### 5 7021-8 ####[facility]IA [id number] [place] [address] Nucleated RBC/100 WBC (Bld) [Ratio] 0.0 /100 WBC Normal [facility] Comment on above: Order Comment: Speci men Type: BLOOD SPECIMENOrdering Facility: [facility] Address: [address] [place], [place] [address] Performed By: #### 5 7021-8 ####[facility] LABIA [id number] [place] [address] Platelet mean volume (Bld) [Entitic vol] 10.1 fL Normal 9.0-12.7 [facility] Comment on above: Order Comment: Speci men Type: BLOOD SPECIMENOrdering Facility: [facility] Address: [address] [place], [place] [address] Performed By: #### 5 7021-8 ####[facility]CLIA [id number] [place] [address] Platelets (Bld) [#/Vol] 138 10*3/uL Low 150-400 [facility] Comment on above: Order Comment: Speci men Type: BLOOD SPECIMENOrdering Facility: [facility] Address: [address] [place] [address] Performed By: #### 5 7021-8 ####[facility]CLIA [id number] [place] [address] RBC (Bld) [#/Vol] 3.42 10*6/uL Low 4.20-6.00 [facility] Comment on above: Order Comment: Speci men Type: BLOOD SPECIMENOrdering Facility: [facility] Address: [address] [place] [address] Performed By: #### 5 7021-8 ####[facility]CLIA [id number] [place] [address] WBC (Bld) [#/Vol] 5.90 10*3/uL Normal 3.70-11.00 [facility] Comment on above: Order Comment: Speci men Type: BLOOD SPECIMENOrdering Facility: [facility] Address: [address] [place] [address] Performed By: #### 5 7021-8 ####[facility] LABCLIA [id number] [place] [address] Comprehensive metabolic 2000 panelon 11-05-2021 Albumin [Mass/Vol] 3.3 g/dL Low 3.9-4.9 [facility] Comment on above: Order Comment: Speci men Type: BLOOD SPECIMENOrdering Facility: [facility] Address: [address] [place] [address] Performed By: #### 2 4323-8 ####[facility] LABCLIA [id number] [place] [address] ALP [Catalytic activity/Vol] 196 U/L High 38-113 [facility] Comment on above: Order Comment: Speci men Type: BLOOD SPECIMENOrdering Facility: [facility] Address: [address] [address] Performed By: #### 2 4323-8 ####[facility] LABCLIA [id number] [place] [address] [place] [Catalytic activity/Vol] 19 U/L Normal 10-54 [facility] Comment on above: Order Comment: Speci men Type: BLOOD SPECIMENOrdering Facility: [facility] Address: [address] [place] [address] Performed By: #### 2 4323-8 ####[facility] LABCLIA [id number] [place] [address] Anion gap [Moles/Vol] 9 mmol/L Normal 9-18 [facility] Comment on above: Order Comment: Speci men Type: BLOOD SPECIMENOrdering Facility: [facility] Address: [address] [place] [address] Performed By: #### 2 4323-8 ####[facility] LABCLIA [id number] [place] [address] AST [Catalytic activity/Vol] 24 U/L Normal 14-40 [facility] Comment on above: Order Comment: Speci men Type: BLOOD SPECIMENOrdering Facility: [facility] Address: [address] [place], [place] [address] Performed By: #### 2 4323-8 ####[facility] LABCLIA [id number] [place] [address] Bilirubin [Mass/Vol] 0.5 mg/dL Normal 0.2-1.3 [facility] Comment on above: Order Comment: Speci men Type: BLOOD SPECIMENOrdering Facility: [facility] Address: [address] [place], [place] [address] Performed By: #### 2 4323-8 ####[facility] LABCLIA [id number] [place] [address] Calcium [Mass/Vol] 8.7 mg/dL Normal 8.5-10.2 [facility] Comment on above: Order Comment: Speci men Type: BLOOD SPECIMENOrdering Facility: [facility] Address: [address] [place] [address] Performed By: #### 2 4323-8 ####[facility] LABCLIA [id number] [place] [address] Chloride [Moles/Vol] 111 mmol/L High 97-105 [facility] Comment on above: Order Comment: Speci men Type: BLOOD SPECIMENOrdering Facility: [facility] Address: [address] [place] [address] Performed By: #### 2 4323-8 ####[facility] LABCLIA [id number] [place] [address] CO2 [Moles/Vol] 19 mmol/L Low 22-30 [facility] Comment on above: Order Comment: Speci men Type: BLOOD SPECIMENOrdering Facility: [facility] Address: [address] [place] [address] Performed By: #### 2 4323-8 ####[facility] LABCLIA [id number] [place] [address] Creatinine [Mass/Vol] 3.53 mg/dL High 0.73-1.22 [facility] Comment on above: Order Comment: Speci men Type: BLOOD SPECIMENOrdering Facility: [facility] Address: [address] [place] [address] Performed By: #### 2 4323-8 ####[facility] LABCLIA [id number] [place] [address] ESTIMATED GLOMERULAR FILTRATION RATE 19 mL/min/1.73m??? Low >=60 [facility] Comment on above: Order Comment: Speci men Type: BLOOD SPECIMENOrdering Facility: [facility] Address: [address] [phone] Result Comment: Trixie mated Glomerular Filtration Rate [...] actual GFR. Performed By: #### 2 4323-8 ####[facility] LABCLIA [id number] [place] [address] Glucose [Mass/Vol] 126 mg/dL High 74-99 [facility] Comment on above: Order Comment: Fabi mcdonnell Type: BLOOD SPECIMENOrdering Facility: [facility] Address: [address] [address] Result Comment: The [place] Diabetes Association (ADA) provides guidance for cutoff [...] Standards of Medical Care in Diabetes 2016, [place] [employer]. Diabetes Care. 2016.39(Suppl 1). Performed By: #### 2 4323-8 ####[facility] LABIA [id number] [place] [address] Potassium [Moles/Vol] 4.2 mmol/L Normal 3.7-5.1 [facility] Comment on above: Order Comment: Fabi mcdonnell Type: BLOOD SPECIMENOrdering Facility: [facility] Address: [address] [phone] Performed By: #### 2 4323-8 ####[facility] LABCLIA [id number] [place] [address] Protein [Mass/Vol] 6.7 g/dL Normal 6.3-8.0 [facility] Comment on above: Order Comment: Speci men Type: BLOOD SPECIMENOrdering Facility: [facility] Address: [address] [place] [address] Performed By: #### 2 4323-8 ####[facility] LABCLIA [id number] [place] [address] Sodium [Moles/Vol] 139 mmol/L Normal 136-144 [facility] Comment on above: Order Comment: Speci men Type: BLOOD SPECIMENOrdering Facility: [facility] Address: [address] [place] [address] Performed By: #### 2 4323-8 ####[facility] LABCLIA [id number] [place] [address] Urea nitrogen [Mass/Vol] 47 mg/dL High 9-24 [facility] Comment on above: Order Comment: Speci men Type: BLOOD SPECIMENOrdering Facility: [facility] Address: [address] [place] [address] Performed By: #### 2 4323-8 ####[facility] LABCLIA [id number] [place] [address] CBC W Auto Differential pane l (Bld)on 10-22-2021 Basophils (Bld) [#/Vol] 0.04 10*3/uL Normal <0.11 [facility] Comment on above: Order Comment: Speci men Type: BLOOD SPECIMENOrdering Facility: [facility] Address: [address] [place] [address] Performed By: #### 5 7021-8 ####[facility] LABCLIA [id number] [place] [address] Basophils/100 WBC (Bld) 0.7 % Normal C [facility] Comment on above: Order Comment: Speci men Type: BLOOD SPECIMENOrdering Facility: [facility] Address: [address] [place] [address] Performed By: #### 5 7021-8 ####[facility] LABCLIA [id number] [place] [address] Differential cell count method Nom (Bld) Auto Normal [facility] Comment on above: Order Comment: Speci men Type: BLOOD SPECIMENOrdering Facility: [facility] Address: [address] [place] [address] Performed By: #### 5 7021-8 ####[facility] LABCLIA [id number] [place] [address] Eosinophils (Bld) [#/Vol] 0.23 10*3/uL Normal <0.46 [facility] Comment on above: Order Comment: Speci men Type: BLOOD SPECIMENOrdering Facility: [facility] Address: [address] [place] [address] Performed By: #### 5 7021-8 ####[facility] LABCLIA [id number] [place] [address] Eosinophils/100 WBC (Bld) 4.1 % Normal [facility] Comment on above: Order Comment: Speci men Type: BLOOD SPECIMENOrdering Facility: [facility] Address: [address] [place] [address] Performed By: #### 5 7021-8 ####[facility] LABCLIA [id number] [place] [address] Erythrocyte distribution width (RBC) [Ratio] 14.4 % Normal 11.5-15.0 [facility] Comment on above: Order Comment: Speci men Type: BLOOD SPECIMENOrdering Facility: [facility] Address: [address] [place] [address] Performed By: #### 5 7021-8 ####[facility] LABCLIA [id number] [place] [address] Hematocrit (Bld) [Volume fraction] 25.6 % Low 39.0-51.0 [facility] Comment on above: Order Comment: Speci men Type: BLOOD SPECIMENOrdering Facility: [facility] Address: [address] [place] [address] Performed By: #### 5 7021-8 ####[facility] LABIA [id number] [place] [address] Hemoglobin (Bld) [Mass/Vol] 8.4 g/dL Low 13.0-17.0 [facility] Comment on above: Order Comment: Speci men Type: BLOOD SPECIMENOrdering Facility: [facility] Address: [address] [place] [address] Performed By: #### 5 7021-8 ####[facility] LABIA [id number] [place] [address] IMMATURE GRAN % 0.2 % Normal [facility] Comment on above: Order Comment: Speci men Type: BLOOD SPECIMENOrdering Facility: [facility] Address: [address] [place] [address] Performed By: #### 5 7021-8 ####[facility] LABIA [id number] [place] [address] IMMATURE GRAN ABS <0.03 Normal <0.10 [facility] Comment on above: Order Comment: Speci men Type: BLOOD SPECIMENOrdering Facility: [facility] Address: [address] [place] [address] Performed By: #### 5 7021-8 ####[facility] LABIA [id number] [place] [address] Lymphocytes (Bld) [#/Vol] 0.69 10*3/uL Low 1.00-4.00 [facility] Comment on above: Order Comment: Speci men Type: BLOOD SPECIMENOrdering Facility: [facility] Address: [address] [place] [address] Performed By: #### 5 7021-8 ####[facility] LABCLIA [id number] [place] [address] Lymphocytes/100 WBC (Bld) 12.3 % Normal [facility] Comment on above: Order Comment: Speci men Type: BLOOD SPECIMENOrdering Facility: [facility] Address: [address] [place] [address] Performed By: #### 5 7021-8 ####[facility] LABCLIA [id number] [place] [address] MCH (RBC) [Entitic mass] 27.5 pg Normal 26.0-34.0 [facility] Comment on above: Order Comment: Speci men Type: BLOOD SPECIMENOrdering Facility: [facility] Address: [address] [place] [address] Performed By: #### 5 7021-8 ####[facility] LABIA [id number] [place] [address] MCHC (RBC) [Mass/Vol] 32.8 g/dL Normal 30.5-36.0 [facility] Comment on above: Order Comment: Speci men Type: BLOOD SPECIMENOrdering Facility: [facility] Address: [address] [place] [address] Performed By: #### 5 7021-8 ####[facility] LABIA [id number] [place] [address] MCV (RBC) [Entitic vol] 83.7 fL Normal 80.0-100.0 [facility] Comment on above: Order Comment: Speci men Type: BLOOD SPECIMENOrdering Facility: [facility] Address: [address] [place] [address] Performed By: #### 5 7021-8 ####[facility] LABCLIA [id number] [place] [address] Monocytes (Bld) [#/Vol] 0.71 10*3/uL Normal <0.87 [facility] Comment on above: Order Comment: Speci men Type: BLOOD SPECIMENOrdering Facility: [facility] Address: [address] [place] [address] Performed By: #### 5 7021-8 ####[facility] LABCLIA [id number] [place] [address] Monocytes/100 WBC (Bld) 12.7 % Normal [facility] Comment on above: Order Comment: Speci men Type: BLOOD SPECIMENOrdering Facility: [facility] Address: [address] [place] [address] Performed By: #### 5 7021-8 ####[facility] LABCLIA [id number] [place] [address] Neutrophils (Bld) [#/Vol] 3.92 10*3/uL Normal 1.45-7.50 [facility] Comment on above: Order Comment: Speci men Type: BLOOD SPECIMENOrdering Facility: [facility] Address: [address] [place] [address] Performed By: #### 5 7021-8 ####[facility] LABCLIA [id number] [place] [address] Neutrophils/100 WBC (Bld) 70.0 % Normal [facility] Comment on above: Order Comment: Speci men Type: BLOOD SPECIMENOrdering Facility: [facility] Address: [address] [place] [address] Performed By: #### 5 7021-8 ####[facility] LABCLIA [id number] [place] [address] Nucleated RBC (Bld) [#/Vol] 10*3/uL Normal <0.01 [facility] Comment on above: Order Comment: Speci men Type: BLOOD SPECIMENOrdering Facility: [facility] Address: [address] [place] [address] Performed By: #### 5 7021-8 ####[facility] LABCLIA [id number] [place] [address] Nucleated RBC/100 WBC (Bld) [Ratio] 0.0 /100 WBC Normal [facility] Comment on above: Order Comment: Speci men Type: BLOOD SPECIMENOrdering Facility: [facility] Address: [address] [place] [address] Performed By: #### 5 7021-8 ####[facility] LABCLIA [id number] [place] [address] Platelet mean volume (Bld) [Entitic vol] 10.2 fL Normal 9.0-12.7 [facility] Comment on above: Order Comment: Speci men Type: BLOOD SPECIMENOrdering Facility: [facility] Address: [address] [place] [address] Performed By: #### 5 7021-8 ####[facility] LABIA [id number] [place] [address] Platelets (Bld) [#/Vol] 160 10*3/uL Normal 150-400 [facility] Comment on above: Order Comment: Speci men Type: BLOOD SPECIMENOrdering Facility: [facility] Address: [address] [place] [address] Performed By: #### 5 7021-8 ####[facility] LABCLIA [id number] [place] [address] RBC (Bld) [#/Vol] 3.06 10*6/uL Low 4.20-6.00 [facility] Comment on above: Order Comment: Speci men Type: BLOOD SPECIMENOrdering Facility: [facility] Address: [address] [place] [address] Performed By: #### 5 7021-8 ####[facility] LABCLIA [id number] [place] [address] WBC (Bld) [#/Vol] 5.60 10*3/uL Normal 3.70-11.00 [facility] Comment on above: Order Comment: Speci men Type: BLOOD SPECIMENOrdering Facility: [facility] Address: [address] [place] [address] Performed By: #### 5 7021-8 ####[facility] LABCLIA [id number] [place] [address] Comprehensive metabolic 2000 panelon 10-22-2021 Albumin [Mass/Vol] 3.4 g/dL Low 3.9-4.9 [facility] Comment on above: Order Comment: Speci men Type: BLOOD SPECIMENOrdering Facility: [facility] Address: [address] [place] [address] Performed By: #### 2 4323-8 ####[facility] LABCLIA [id number] [place] [address] ALP [Catalytic activity/Vol] 197 U/L High 38-113 [facility] Comment on above: Order Comment: Speci men Type: BLOOD SPECIMENOrdering Facility: [facility] Address: [address] [place] [address] Performed By: #### 2 4323-8 ####[facility] LABCLIA [id number] [place] [address] ALT [Catalytic activity/Vol] 19 U/L Normal 10-54 [facility] Comment on above: Order Comment: Speci men Type: BLOOD SPECIMENOrdering Facility: [facility] Address: [address] [place] [address] Performed By: #### 2 4323-8 ####[facility] LABCLIA [id number] [place] [address] Anion gap [Moles/Vol] 9 mmol/L Normal 9-18 [facility] Comment on above: Order Comment: Speci men Type: BLOOD SPECIMENOrdering Facility: [facility] Address: [address] [address] Performed By: #### 2 4323-8 ####[facility] LABCLIA [id number] [place] [address] AST [Catalytic activity/Vol] 21 U/L Normal 14-40 [facility] Comment on above: Order Comment: Speci men Type: BLOOD SPECIMENOrdering Facility: [facility] Address: [address] [place] [address] Performed By: #### 2 4323-8 ####[facility] LABCLIA [id number] [place] [address] Bilirubin [Mass/Vol] 0.3 mg/dL Normal 0.2-1.3 [facility] Comment on above: Order Comment: Speci men Type: BLOOD SPECIMENOrdering Facility: [facility] Address: [address] [place] [address] Performed By: #### 2 4323-8 ####[facility] LABCLIA [id number] [place] [address] Calcium [Mass/Vol] 8.7 mg/dL Normal 8.5-10.2 [facility] Comment on above: Order Comment: Speci men Type: BLOOD SPECIMENOrdering Facility: [facility] Address: [address] [place] [address] Performed By: #### 2 4323-8 ####[facility] LABCLIA [id number] [place] [address] Chloride [Moles/Vol] 110 mmol/L High 97-105 [facility] Comment on above: Order Comment: Speci men Type: BLOOD SPECIMENOrdering Facility: [facility] Address: [address] [place] [address] Performed By: #### 2 4323-8 ####[facility] LABCLIA [id number] [place] [address] CO2 [Moles/Vol] 21 mmol/L Low 22-30 [facility] Comment on above: Order Comment: Speci men Type: BLOOD SPECIMENOrdering Facility: [facility] Address: [address] [place] [address] Performed By: #### 2 4323-8 ####[facility] LABCLIA [id number] [place] [address] Creatinine [Mass/Vol] 4.04 mg/dL High 0.73-1.22 [facility] Comment on above: Order Comment: Speci men Type: BLOOD SPECIMENOrdering Facility: [facility] Address: [address] [place] [address] Performed By: #### 2 4323-8 ####[facility] LABCLIA [id number] [place] [address] ESTIMATED GLOMERULAR FILTRATION RATE 16 mL/min/1.73m??? Low >=60 [facility] Comment on above: Order Comment: Speci men Type: BLOOD SPECIMENOrdering Facility: [facility] Address: [address] [place] [address] Result Comment: Trixie mated Glomerular Filtration Rate [...] actual GFR. Performed By: #### 2 4323-8 ####[facility] LABCLIA [id number] [place] [address] Glucose [Mass/Vol] 104 mg/dL High 74-99 [facility] Comment on above: Order Comment: Speci men Type: BLOOD SPECIMENOrdering Facility: [facility] Address: [address] [place] [address] Result Comment: The [place] [employer] (ADA) provides guidance for cutoff [...] Standards of Medical Care in Diabetes 2016, [place] [employer]. Diabetes Care. 2016.39(Suppl 1). Performed By: #### 2 4323-8 ####[facility] LABCLIA [id number] [place] [address] Potassium [Moles/Vol] 4.5 mmol/L Normal 3.7-5.1 [facility] Comment on above: Order Comment: Speci men Type: BLOOD SPECIMENOrdering Facility: [facility] Address: [address] [place] [address] Performed By: #### 2 4323-8 ####[facility] LABIA [id number] [place] [address] Protein [Mass/Vol] 6.8 g/dL Normal 6.3-8.0 [facility] Comment on above: Order Comment: Speci men Type: BLOOD SPECIMENOrdering Facility: [facility] Address: [address] [place] [address] Performed By: #### 2 4323-8 ####[facility] LABCLIA [id number] [place] [address] Sodium [Moles/Vol] 140 mmol/L Normal 136-144 [facility] Comment on above: Order Comment: Speci men Type: BLOOD SPECIMENOrdering Facility: [facility] Address: [address] [place] [address] Performed By: #### 2 4323-8 ####[facility] LABCLIA [id number] [place] [address] Urea nitrogen [Mass/Vol] 58 mg/dL High 9-24 [facility] Comment on above: Order Comment: Speci men Type: BLOOD SPECIMENOrdering Facility: [facility] Address: [address] [place], [place] [address] [id number] Performed By: #### 2 4323-8 ####[facility] LABCLIA [id number] [place] [address] B2 MICROGLOBULIN Bon 022 Wavh-5-Dukthfobrilde [Mass/Vol] 16.8 ug/mL High 0.8 - 2.4 mg/L [facility] Calcium.ionized [Moles/Vol]o n 10-03-2021 Calcium.ionized (Bld) [Mass/Vol] 1.20 mmol/L 1.08 - 1.30 mmol/L [facility] Calcium.ionized adjusted to pH 7.4 (Bld) [Moles/Vol] 1.19 mmol/L 1.08 - 1.30 mmol/L [facility] ERYTHROPOIETIN/EPOon 022 Erythropoietin (EPO) Qn 8.2 mIU/mL 2.6 - 18.5 mIU/mL [facility] FERRITIN BLDon 10-03-2021 Ferritin [Mass/Vol] 355.0 ng/mL 30.3 - 5 65.7 ng/mL [facility] FOLATE SERUMon 10-03-2021 Folate [Mass/Vol] 10.6 ng/mL >4.7 ng/mL [facility] VITAMIN B12 BLOODon 10-04-19 Cobalamin (Vitamin B12) [Mass/Vol] 647 pg/mL 232-1,245 pg/mL [facility] B2 Microglob SerPl-mCncon Vrkx-2-Nxygqwpeteofp [Mass/Vol] 16.8 ug/mL High 0.8-2.4 [facility] Comment on above: Order Comment: Speci men Type: BLOOD SPECIMEN [facility] Address: [facility] [place] [address] Performed By: #### 5 7021-8 #### [facility] CLIA [id number] [place] [address] CBC W Auto Differential pane l (Bld)on 10-02-2021 Basophils (Bld) [#/Vol] 10*3/uL Normal <0.11 [facility] Comment on above: Order Comment: Speci men Type: BLOOD SPECIMENOrdering Facility: [facility] Address: [address] [place] [address] Performed By: #### 5 7021-8 ####[facility] LABCLIA [id number] [place] [address] Basophils/100 WBC (Bld) 0.3 % Normal [facility] Comment on above: Order Comment: Speci men Type: BLOOD SPECIMENOrdering Facility: [facility] Address: [address] [place] [address] Performed By: #### 5 7021-8 ####[facility] LABCLIA [id number] [place] [address] Differential cell count method Nom (Bld) Auto Normal [facility] Comment on above: Order Comment: Speci men Type: BLOOD SPECIMENOrdering Facility: [facility] Address: [address] [place] [address] Performed By: #### 5 7021-8 ####[facility] LABCLIA [id number] [place] [address] Eosinophils (Bld) [#/Vol] 0.23 10*3/uL Normal <0.46 [facility] Comment on above: Order Comment: Speci men Type: BLOOD SPECIMENOrdering Facility: [facility] Address: [address] [place] [address] Performed By: #### 5 7021-8 ####[facility] LABCLIA [id number] [place] [address] Eosinophils/100 WBC (Bld) 3.7 % Normal [facility] Comment on above: Order Comment: Speci men Type: BLOOD SPECIMENOrdering Facility: [facility] Address: [address] [place] [address] Performed By: #### 5 7021-8 ####[facility] LABCLIA [id number] [place] [address] Erythrocyte distribution width (RBC) [Ratio] 14.7 % Normal 11.5-15.0 [facility] Comment on above: Order Comment: Speci men Type: BLOOD SPECIMENOrdering Facility: [facility] Address: [address] [place] [address] Performed By: #### 5 7021-8 ####[facility] LABCLIA [id number] [place] [address] Hematocrit (Bld) [Volume fraction] 27.1 % Low 39.0-51.0 [facility] Comment on above: Order Comment: Speci men Type: BLOOD SPECIMENOrdering Facility: [facility] Address: [address] [place] [address] Performed By: #### 5 7021-8 ####[facility] LABIA [id number] [place] [address] Hemoglobin (Bld) [Mass/Vol] 8.8 g/dL Low 13.0-17.0 [facility] Comment on above: Order Comment: Speci men Type: BLOOD SPECIMENOrdering Facility: [facility] Address: [address] [place] [address] Performed By: #### 5 7021-8 ####[facility] LABCLIA [id number] [place] [address] IMMATURE GRAN % 0.2 % Normal [facility] Comment on above: Order Comment: Speci men Type: BLOOD SPECIMENOrdering Facility: [facility] Address: [address] [place] [address] Performed By: #### 5 7021-8 ####[facility] LABIA [id number] [place] [address] IMMATURE GRAN ABS <0.03 Normal <0.10 [facility] Comment on above: Order Comment: Speci men Type: BLOOD SPECIMENOrdering Facility: [facility] Address: [address] [place] [address] Performed By: #### 5 7021-8 ####[facility] LABCLIA [id number] [place] [address] Lymphocytes (Bld) [#/Vol] 0.73 10*3/uL Low 1.00-4.00 [facility] Comment on above: Order Comment: Speci men Type: BLOOD SPECIMENOrdering Facility: [facility] Address: [address] [place] [address] Performed By: #### 5 7021-8 ####[facility] LABCLIA [id number] [place] [address] Lymphocytes/100 WBC (Bld) 11.8 % Normal [facility] Comment on above: Order Comment: Speci men Type: BLOOD SPECIMENOrdering Facility: [facility] Address: [address] [place] [address] Performed By: #### 5 7021-8 ####[facility] LABCLIA [id number] [place] [address] MCH (RBC) [Entitic mass] 27.2 pg Normal 26.0-34.0 [facility] Comment on above: Order Comment: Speci men Type: BLOOD SPECIMENOrdering Facility: [facility] Address: [address] [place] [address] Performed By: #### 5 7021-8 ####[facility] LABCLIA [id number] [place] [address] MCHC (RBC) [Mass/Vol] 32.5 g/dL Normal 30.5-36.0 [facility] Comment on above: Order Comment: Speci men Type: BLOOD SPECIMENOrdering Facility: [facility] Address: [address] [place] [address] Performed By: #### 5 7021-8 ####[facility] LABCLIA [id number] [place] [address] MCV (RBC) [Entitic vol] 83.6 fL Normal 80.0-100.0 [facility] Comment on above: Order Comment: Speci men Type: BLOOD SPECIMENOrdering Facility: [facility] Address: [address] [place] [address] Performed By: #### 5 7021-8 ####[facility] LABCLIA [id number] [place] [address] Monocytes (Bld) [#/Vol] 0.67 10*3/uL Normal <0.87 [facility] Comment on above: Order Comment: Speci men Type: BLOOD SPECIMENOrdering Facility: [facility] Address: [address] [place] [address] Performed By: #### 5 7021-8 ####[facility] LABCLIA [id number] [place] [address] Monocytes/100 WBC (Bld) 10.8 % Normal [facility] Comment on above: Order Comment: Speci men Type: BLOOD SPECIMENOrdering Facility: [facility] Address: [address] [place] [address] Performed By: #### 5 7021-8 ####[facility] LABCLIA [id number] [place] [address] Neutrophils (Bld) [#/Vol] 4.54 10*3/uL Normal 1.45-7.50 [facility] Comment on above: Order Comment: Speci men Type: BLOOD SPECIMENOrdering Facility: [facility] Address: [address] [place] [address] Performed By: #### 5 7021-8 ####[facility] LABCLIA [id number] [place] [address] Neutrophils/100 WBC (Bld) 73.2 % Normal [facility] Comment on above: Order Comment: Speci men Type: BLOOD SPECIMENOrdering Facility: [facility] Address: [address] [place], [place] [address] Performed By: #### 5 7021-8 ####[facility] LABCLIA [id number] [place] [address] Nucleated RBC (Bld) [#/Vol] 10*3/uL Normal <0.01 [facility] Comment on above: Order Comment: Speci men Type: BLOOD SPECIMENOrdering Facility: [facility] Address: [address] [place], [place] [address] Performed By: #### 5 7021-8 ####[facility] LABCLIA [id number] [place] [address] Nucleated RBC/100 WBC (Bld) [Ratio] 0.0 /100 WBC Normal [facility] Comment on above: Order Comment: Speci men Type: BLOOD SPECIMENOrdering Facility: [facility] Address: [address] [place] [address] Performed By: #### 5 7021-8 ####[facility] LABCLIA [id number] [place] [address] Platelet mean volume (Bld) [Entitic vol] 10.2 fL Normal 9.0-12.7 [facility] Comment on above: Order Comment: Speci men Type: BLOOD SPECIMENOrdering Facility: [facility] Address: [address] [place], [place] [address] Performed By: #### 5 7021-8 ####[facility] LABCLIA [id number] [place] [address] Platelets (Bld) [#/Vol] 163 10*3/uL Normal 150-400 [facility] Comment on above: Order Comment: Speci men Type: BLOOD SPECIMENOrdering Facility: [facility] Address: [address] [place] [address] Performed By: #### 5 7021-8 ####[facility] LABCLIA [id number] [place] [address] RBC (Bld) [#/Vol] 3.24 10*6/uL Low 4.20-6.00 [facility] Comment on above: Order Comment: Speci men Type: BLOOD SPECIMENOrdering Facility: [facility] Address: [address] [place] [address] Performed By: #### 5 7021-8 ####[facility] LABCLIA [id number] [place] [address] WBC (Bld) [#/Vol] 6.20 10*3/uL Normal 3.70-11.00 [facility] Comment on above: Order Comment: Speci men Type: BLOOD SPECIMENOrdering Facility: [facility] Address: [address] [place] [address] Performed By: #### 5 7021-8 ####[facility] LABCLIA [id number] [place] [address] Abs Immature Gran <0.03 <0.10 k/uL [facility] Basophils (Bld) [#/Vol] 10*3/uL <0.11 k/uL C [facility] Basophils/100 WBC (Bld) 0.3 % C [facility] Differential cell count method Nom (Bld) Auto [facility] Eosinophils (Bld) [#/Vol] 0.23 10*3/uL <0.46 k/uL [facility] Eosinophils/100 WBC (Bld) 3.7 % [facility] Erythrocyte distribution width (RBC) [Ratio] 14.7 % 11.5 - 15.0 % [facility] Hematocrit (Bld) [Volume fraction] 27.1 % Low 39.0 - 51.0 % [facility] Hemoglobin (Bld) [Mass/Vol] 8.8 g/dL Low 13.0 - 17.0 g/dL [facility] Immature Gran % 0.2 % [facility] Lymphocytes (Bld) [#/Vol] 0.73 10*3/uL Low 1.00 - 4.00 k/uL [facility] Lymphocytes/100 WBC (Bld) 11.8 % [facility] MCH (RBC) [Entitic mass] 27.2 pg 26.0 - 34.0 pg [facility] MCHC (RBC) [Mass/Vol] 32.5 g/dL 30.5 - 36.0 g/dL [facility] MCV (RBC) [Entitic vol] 83.6 fL 80.0 - 100.0 fL [facility] Monocytes (Bld) [#/Vol] 0.67 10*3/uL <0.87 k/uL [facility] Monocytes/100 WBC (Bld) 10.8 % C [facility] Neutrophils (Bld) [#/Vol] 4.54 10*3/uL 1.45 - 7.50 k/uL [facility] Neutrophils/100 WBC (Bld) 73.2 % [facility] Nucleated RBC (Bld) [#/Vol] 10*3/uL <0.01 k/uL [facility] Nucleated RBC/100 WBC (Bld) [Ratio] 0.0 /100 WBC [facility] Platelet mean volume (Bld) [Entitic vol] 10.2 fL 9.0 - 12.7 fL [facility] Platelets (Bld) [#/Vol] 163 10*3/uL 150 - 400 k/uL [facility] RBC (Bld) [#/Vol] 3.24 10*6/uL Low 4.20 - 6.0 0 m/uL [facility] WBC (Bld) [#/Vol] 6.20 10*3/uL 3.70 - 11. 00 k/uL [facility] CNOVSPon 10-02-2021 CNOVS Visit (SP) Office ([facility]) GOPAL YATES JR ([id number]) 1965 M Date Time Provider Department 10/02/21 4:00 PM CONRAD ROJAS During your visit today, we recorded the following information about you: Temperature Pulse Respiration Blood pressure 97.5 degrees 61/minute 18/minute 138/58 Weight Height 91.6 kg 1.93 m Conrad Rojas MD 10/08/2021 9:04 PM Signed NAME: Gopal Yates CLINIC NO.: [id number] DATE OF SERVICE: October 02, 2021 Referring [...] Alkaline P (more content not included)... Normal [facility] Calcium.ionized [Moles/Vol]o n 10-02-2021 Calcium.ionized (Bld) [Mass/Vol] 1.20 mmol/L Normal 1.08-1.30 [facility] Comment on above: Order Comment: Speci men Type: BLOOD SPECIMENOrdering Facility: [facility] Address: [address] [place] [address] Performed By: #### 1 995-0 ####[facility] LABCLIA [id number] [address] [facility] Calcium.ionized adjusted to pH 7.4 (Bld) [Moles/Vol] 1.19 mmol/L Normal 1.08-1.30 [facility] Comment on above: Order Comment: Speci men Type: BLOOD SPECIMENOrdering Facility: [facility] Address: [address] [place], [place] [address] Performed By: #### 1 995-0 ####[facility] LABCLIA [id number] [place] [address] [place] Comprehensive metabolic 2000 panelon 10-02-2021 Albumin [Mass/Vol] 3.6 g/dL Low 3.9-4.9 [facility] Comment on above: Order Comment: Speci men Type: BLOOD SPECIMEN [facility] Address: [address] [place] [address] Performed By: #### 5 7021-8 #### [facility] CLIA [id number] [address] [place] [address] ALP [Catalytic activity/Vol] 237 U/L High 38-113 [facility] Comment on above: Order Comment: Speci men Type: BLOOD SPECIMEN [facility] Address: [address] [place] [place] [address] Performed By: #### 5 7021-8 #### [facility] CLIA [id number] [address] [place] [address] ALT [Catalytic activity/Vol] 23 U/L Normal 10-54 [facility] Comment on above: Order Comment: Speci men Type: BLOOD SPECIMEN [facility] Address: [address] [address] Performed By: #### 5 7021-8 #### [facility] CLIA [id number] [address] [place] [address] Anion gap [Moles/Vol] 13 mmol/L Normal 9-18 [facility] Comment on above: Order Comment: Speci men Type: BLOOD SPECIMEN [facility] Address: [address] [place] [address] Performed By: #### 5 7021-8 #### [facility] CLIA [id number] [address] [place] [address] AST [Catalytic activity/Vol] 23 U/L Normal 14-40 [facility] Comment on above: Order Comment: Speci men Type: BLOOD SPECIMEN [facility] Address: [address] [place], [place] [address] Performed By: #### 5 7021-8 #### [facility] CLIA [id number] [address] [place] [address] Bilirubin [Mass/Vol] 0.4 mg/dL Normal 0.2-1.3 [facility] Comment on above: Order Comment: Speci men Type: BLOOD SPECIMEN [facility] Address: [address] Performed By: #### 5 7021-8 #### [facility] CLIA [id number] [address] [place] [address] Calcium [Mass/Vol] 8.9 mg/dL Normal 8.5-10.2 [facility] Comment on above: Order Comment: Speci men Type: BLOOD SPECIMEN [facility] Address: [address] [place], [place] [address] Performed By: #### 5 7021-8 #### [facility] CLIA [id number] [address] [place] [address] Chloride [Moles/Vol] 112 mmol/L High 97-105 [facility] Comment on above: Order Comment: Speci men Type: BLOOD SPECIMEN [facility] Address: [address] [place] [address] Performed By: #### 5 7021-8 #### [facility] CLIA [id number] [address] [place] [address] CO2 [Moles/Vol] 18 mmol/L Low 22-30 [facility] Comment on above: Order Comment: Speci men Type: BLOOD SPECIMEN [facility] Address: [address] [place] [address] Performed By: #### 5 7021-8 #### [facility] CLIA [id number] [address] [place] [address] Creatinine [Mass/Vol] 3.91 mg/dL High 0.73-1.22 [facility] Comment on above: Order Comment: Speci men Type: BLOOD SPECIMEN [facility] Address: [address] [place] [address] Performed By: #### 5 7021-8 #### [facility] CLIA [id number] [address] [place] [address] ESTIMATED GLOMERULAR FILTRATION RATE 17 mL/min/1.73m??? Low >=60 [facility] Comment on above: Order Comment: Speci men Type: BLOOD SPECIMEN [facility] Address: [address] [place] [address] Result Comment: Trixie mated Glomerular Filtration Rate [...] GFR. Performed By: #### 5 7021-8 #### [facility] CLIA [id number] [address] [place] [address] Glucose [Mass/Vol] 125 mg/dL High 74-99 [facility] Comment on above: Order Comment: Fabi mcdonnell Type: BLOOD SPECIMEN [facility] Address: [address] [place], [place] [address] Result Comment: The [place] Diabetes Association (ADA) provides guidance for cutoff [...] Standards of Medical Care in Diabetes 2016, [place] [employer]. Diabetes Care. 2016.39(Suppl 1). Performed By: #### 5 7021-8 #### [facility] CLIA [id number] [address] [place] [address] Potassium [Moles/Vol] 4.0 mmol/L Normal 3.7-5.1 [facility] Comment on above: Order Comment: Fabi mcdonnell Type: BLOOD SPECIMEN [facility] Address: [address] [place] [address] Performed By: #### 5 7021-8 #### [facility] CLIA [id number] [address] [place] [address] Protein [Mass/Vol] 7.1 g/dL Normal 6.3-8.0 [facility] Comment on above: Order Comment: Fabi mcdonnell Type: BLOOD SPECIMEN [facility] Address: [address] Performed By: #### 5 7021-8 #### [facility] CLIA [id number] [address] [place] [address] Sodium [Moles/Vol] 143 mmol/L Normal 136-144 [facility] Comment on above: Order Comment: Speci men Type: BLOOD SPECIMEN [facility] Address: [address] [place] [address] Performed By: #### 5 7021-8 #### [facility] CLIA [id number] [address] [place] [address] Urea nitrogen [Mass/Vol] 64 mg/dL High 9-24 [facility] Comment on above: Order Comment: Speci men Type: BLOOD SPECIMEN [facility] Address: [address] [place] [address] Performed By: #### 5 7021-8 #### [facility] CLIA [id number] [address] [place] [address] Albumin [Mass/Vol] 3.6 g/dL Low 3.9 - 4.9 g/dL [facility] ALP [Catalytic activity/Vol] 237 U/L High 38 - 113 U/L [facility] ALT [Catalytic activity/Vol] 23 U/L 10 - 54 U/L [facility] Anion gap [Moles/Vol] 13 mmol/L 9 - 18 mmol/L [facility] AST [Catalytic activity/Vol] 23 U/L 14 - 40 U/L [facility] Bilirubin [Mass/Vol] 0.4 mg/dL 0.2 - 1 .3 mg/dL [facility] Calcium [Mass/Vol] 8.9 mg/dL 8.5 - 10. 2 mg/dL [facility] Chloride [Moles/Vol] 112 mmol/L High 97 - 10 5 mmol/L [facility] CO2 [Moles/Vol] 18 mmol/L Low 22 - 30 mmol/L [facility] Creatinine [Mass/Vol] 3.91 mg/dL High 0.73 - 1.22 mg/dL [facility] Estimated Glomerular Filtration Rate 17 mL/min/1.73m Low >=60 mL/min/1.73m [facility] Glucose [Mass/Vol] 125 mg/dL High 74 - 99 mg/dL [facility] Potassium [Moles/Vol] 4.0 mmol/L 3.7 - 5.1 mmol/L [facility] Protein [Mass/Vol] 7.1 g/dL 6.3 - 8.0 g/dL [facility] Sodium [Moles/Vol] 143 mmol/L 136 - 144 mmol/L [facility] Urea nitrogen [Mass/Vol] 64 mg/dL High 9 - 24 mg/dL [facility] EPO SerPl-aCncon 10-02-2021 Erythropoietin (EPO) Qn 8.2 mIU/mL Normal 2.6-18.5 [facility] Comment on above: Order Comment: Speci men Type: BLOOD SPECIMENOrdering Facility: [facility] Address: [address] [place] [address] Performed By: #### 1 5061-5 ####[facility] LABCLIA [id number] [address] [facility] FREE LIGHT CHAINS PLUS RATIO on 10-02-2021 Free [place] Lt Chains,S 125.4 mg/L Critically high 3.3-19.4 [facility] Comment on above: Performed By: #### H BSANS #### [facility] [address] [place] [address] Dr. Shilo Lam Free [place] Lt Chains,S 85.1 mg/L Critically high 5.7-26. 3 [facility] Comment on above: Performed By: #### H BSANS #### [facility] [address] [address] [address] Shilo Lam [place]/Lambda Ratio, S 1.47 Normal 0.26-1.65 [facility] Comment on above: Performed By: #### H BSANS #### [facility] [address] [address] [address] Shilo Lam Ferritin SerPl-mCncon 2021 Ferritin [Mass/Vol] 355.0 ng/mL Normal 30.3-565.7 [facility] Comment on above: Order Comment: Speci men Type: BLOOD SPECIMEN [facility] Address: [address] [place] [address] Performed By: #### 5 7021-8 #### [facility] CLIA [id number] [address] [place], [place] [address] Folate SerPl-mCncon 10-03-19 Folate [Mass/Vol] 10.6 ng/mL Normal >4.7 [facility] Comment on above: Order Comment: Speci men Type: BLOOD SPECIMENOrdering Facility: [facility] Address: [address] [place] [address] Performed By: #### 2 132-9, 2284-8, 2885-2 ####[facility] LABCLIA [id number] [address] IMMUNOFIXATION SCREEN, SERUM on 10-02-2021 MPA RESULT No M protein is identified. Normal No M protein is identified. [facility] Comment on above: Order Comment: Speci men Type: BLOOD SPECIMEN [facility] Address: [address] [place] [address] Performed By: #### 5 7021-8 #### [facility] CLIA [id number] [address] [place], [place] [address] STAFF REVIEW (MPA) Reviewed by Darlene Whaley MD [facility] Comment on above: Order Comment: Speci men Type: BLOOD SPECIMEN [facility] Address: [address] [place], [place] [address] Performed By: #### 5 7021-8 #### [facility] CLIA [id number] [address] [place], [place] [address] IMMUNOGLOBULINS GAMon 2021 IgA [Mass/Vol] 479 mg/dL High 70-400 [facility] Comment on above: Order Comment: Speci men Type: BLOOD SPECIMENOrdering Facility: [facility] Address: [address] [place] [address] Performed By: #### S ERIMM ####[facility] LABCLIA [id number] [place] [address] [place] IgG [Mass/Vol] 1405 mg/dL Normal 700-1,600 [facility] Comment on above: Order Comment: Speci men Type: BLOOD SPECIMENOrdering Facility: [facility] Address: [address] [place] [address] Performed By: #### S ERIMM ####[facility] LABCLIA [id number] [place] [address] [place] IgM [Mass/Vol] 136 mg/dL Normal 40-230 [facility] Comment on above: Order Comment: Speci men Type: BLOOD SPECIMENOrdering Facility: [facility] Address: [address] [place] [address] Performed By: #### S ERIMM ####[facility] LABCLIA [id number] [place] [address] [place] Iron and Iron binding capaci ty panelon 10-02-2021 Iron [Mass/Vol] 41 ug/dL 41 - 186 ug/dL [facility] Iron binding capacity [Mass/Vol] 199 ug/dL Low 232 - 386 ug/dL [facility] Iron/TIBC [Molar ratio] 20.6 % 15.0 - 57.0 % [facility] Iron [Mass/Vol] 41 ug/dL Normal 41-186 [facility] Comment on above: Order Comment: Speci men Type: BLOOD SPECIMEN [facility] Address: [address] [place], [place] [address] Performed By: #### 5 7021-8 #### [facility] CLIA [id number] [address] [place] [address] Iron binding capacity [Mass/Vol] 199 ug/dL Low 232-386 [facility] Comment on above: Order Comment: Speci men Type: BLOOD SPECIMEN [facility] Address: [address] [place], [place] [address] Performed By: #### 5 7021-8 #### [facility] CLIA [id number] [address] [place] [address] Iron/TIBC [Molar ratio] 20.6 % Normal 15.0-57.0 [facility] Comment on above: Order Comment: Speci men Type: BLOOD SPECIMEN [facility]ing [facility] Address: [address] [place], [place] [address] Performed By: #### 5 7021-8 #### [facility] CLIA [id number] [address] [place] [address] KAPPA/GARDNER,FREE,SERon 2021 Immunoglobulin light chains.kappa.free (S) [Mass/Vol] 124.9 mg/L High 3.3-19.4 [facility] Comment on above: Order Comment: Speci men Type: BLOOD SPECIMENOrdering Facility: [facility] Address: [address] [place], [place] [address] Performed By: #### K LFRS ####[facility]CL[facility] [id number] [place] [address] [place] Immunoglobulin light chains.kappa/Immunoglob ulin light chains.lambda (S) [Mass ratio] 1.52 Normal 0.26-1.65 [facility] Comment on above: Order Comment: Speci men Type: BLOOD SPECIMENOrdering Facility: [facility] Address: [address] [place] [address] Performed By: #### K LFRS ####[facility] LABCLIA [id number] [place] [address] [place] Immunoglobulin light chains.lambda.free [Mass/Vol] 82.3 mg/L High 5.7-26.3 [facility] Comment on above: Order Comment: Speci men Type: BLOOD SPECIMENOrdering Facility: [facility] Address: [address] [place], [place] [id number] Performed By: #### K LFRS ####[facility] [id number] [place] [address] [place] LD LACTATE DEHYDROon 022 LDH [Catalytic activity/Vol] 165 U/L 135 - 225 U/L [facility] LDH SerPl-cCncon 10-02-2021 LDH [Catalytic activity/Vol] 165 U/L Normal 135-225 [facility] Comment on above: Order Comment: Speci men Type: BLOOD SPECIMEN Ordering Facility: [facility] Address: [address] [place] [address] Performed By: #### 5 7021-8 #### [facility] CLIA [id number] [address] [place] [address] PHOSPHORUS INORGANICon 10-02 Phosphate [Mass/Vol] 3.8 mg/dL 2.7 - 4 .8 mg/dL [facility] PROTEIN ELECTROPHORESIS SERU M (P)on 10-02-2021 Albumin [Mass/Vol] 3.22 g/dL Low 3.37-4.23 [facility] Comment on above: Order Comment: Speci men Type: BLOOD SPECIMENOrdering Facility: [facility] Address: [address] [place] [address] Performed By: #### L [id number] ####[facility] [id number] [place] [address] [place] Alpha 1 globulin Elph [Mass/Vol] 0.33 g/dL High 0.18-0.31 [facility] Comment on above: Order Comment: Speci men Type: BLOOD SPECIMENOrdering Facility: [facility] Address: [address] [place] [address] Performed By: #### L [id number] ####[facility] [id number] [place] [address] [place] Alpha 2 globulin Elph [Mass/Vol] 0.84 g/dL Normal 0.52-0.97 [facility] Comment on above: Order Comment: Speci men Type: BLOOD SPECIMENOrdering Facility: [facility] Address: [address] [place] [address] Performed By: #### L [id number] ####[facility] [id number] [address] Beta globulin Elph [Mass/Vol] 0.97 g/dL Normal 0.84-1.36 [facility] Comment on above: Order Comment: Speci men Type: BLOOD SPECIMENOrdering Facility: [facility] Address: [address] [place] [address] Performed By: #### L [id number] ####[facility] [id number] [address] Gamma globulin Elph (Body fld) [Mass fraction] 1.64 g/dL High 0.70-1.44 [facility] Comment on above: Order Comment: Speci men Type: BLOOD SPECIMENOrdering Facility: [facility] Address: [address] [place] [address] Performed By: #### L [id number] ####[facility] [id number] [address] M-PROTEIN LOCATION Normal [facility] Comment on above: Order Comment: Speci men Type: BLOOD SPECIMENOrdering Facility: [facility] Address: [address] [place], [place] [address] Result Comment: Not Applicable. Performed By: #### L [id number] ####[facility] [id number] [address] [place] Protein Fractions [Interp] No definitive M protein is identified on protein electrophoresis. Normal No definitive M protein is identified on protein electrophores is. [facility] Comment on above: Order Comment: Speci men Type: BLOOD SPECIMENOrdering Facility: [facility] Address: [address] [place], [place] [address] Performed By: #### L [id number] ####[facility] [id number] [address] [place] Protein.monoclonal Elph [Mass/Vol] 0.00 g/dL Normal <=0.00 [facility] Comment on above: Order Comment: Speci men Type: BLOOD SPECIMENOrdering Facility: [facility] Address: [address] [place] [address] Performed By: #### L [id number] ####[facility] [id number] [place] [address] [place] SPE STAFF REVIEW Reviewed by Darlene Whaley MD [facility] Comment on above: Order Comment: Speci men Type: BLOOD SPECIMENOrdering Facility: [facility] Address: [address] [place] [address] Performed By: #### L [id number] ####[facility] [id number] [address] [place] Phosphate SerPl-mCncon 10-02 Phosphate [Mass/Vol] 3.8 mg/dL Normal 2.7-4.8 [facility] Comment on above: Order Comment: Speci men Type: BLOOD SPECIMENOrdering Facility: [facility] Address: [address] [place] [address] Performed By: #### 3 084-1, 38673-0, 2532-0, 2777-1 ####[facility] [id number] [place] [id number] Prot SerPl-mCncon 10-02-2021 Protein [Mass/Vol] 7.0 g/dL Normal 6.3-8.0 [facility] Comment on above: Order Comment: Speci men Type: BLOOD SPECIMENOrdering Facility: [facility] Address: [address] [place] [address] Performed By: #### 2 132-9, 2284-8, 2885-2 ####[facility] [id number] [place] [address] [place] URIC ACID BLOODon 10-02-2021 Urate [Mass/Vol] 6.7 mg/dL 4.0 - 8.1 mg/dL [facility] Urate [facility] 2 Urate [Mass/Vol] 6.7 mg/dL Normal 4.0-8.1 [facility] Comment on above: Order Comment: Speci men Type: BLOOD SPECIMENOrdering Facility: [facility] Address: [address] [place] [address] Performed By: #### 3 084-1, 20650-3, 2532-0, 2777-1 ####[facility] LABCLIA [id number] [place] [address] Vit B12 [facility] 022 Cobalamin (Vitamin B12) [Mass/Vol] 647 pg/mL Normal 232-1,245 [facility] Comment on above: Order Comment: Speci men Type: BLOOD SPECIMENOrdering Facility: [facility] Address: [address] [place] [address] Performed By: #### 2 132-9, 2284-8, 2885-2 ####[facility] [id number] [place] [address] [place] FREE LIGHT CHAINS PLUS RATIO on 09-24-2021 Free [place] Lt Chains,S 132.3 mg/L Critically high 3.3-19.4 [facility] Comment on above: Performed By: #### F MASSIEL #### [facility] [address] [place], [place] [address] Dr. Shilo Lam Free [place]ambda Lt Chains,S 83.4 mg/L Critically high 5.7-26. 3 [facility] Comment on above: Performed By: #### F ALTONT #### [facility] [address] [place], [place] [address] Dr. Shilo Lam [place]/Lambda Ratio, S 1.59 Normal 0.26-1.65 [facility] Comment on above: Performed By: #### F REELIT #### [facility] [address] [place] [address] Dr. Shilo Lam IMMUNOFIXATION (DARYL), URINEo n 09-24-2021 DARYL Interpretation:U Comment Normal [facility] Comment on above: Result Comment: No m onoclonality detected. Performed By: #### I MUNFXU #### [facility] [address] [place] [address] Dr. Shilo Lam PTH INTACTon 09-20-2021 PTH, Intact 73 pg/mL Critically high 15-65 [facility] Comment on above: Performed By: #### F REELIT #### [facility] [address] [place] [address] Dr. Shilo Lam FERRITINon 09-19-2021 Ferritin [Mass/Vol] 324.0 ng/mL Normal 26.0-388.0 [facility] Comment on above: Performed By: #### H H #### [facility] [address] [place] [address] Dr. Shilo Lam HEMOGRAM AND PLATELon 2021 Hematocrit (Bld) [Volume fraction] 26.6 % Critically low 42.0-54.0 [facility] Comment on above: Performed By: #### H BSANS #### [facility] [address] [place] [address] Dr. Shilo Lam Hemoglobin (Bld) [Mass/Vol] 8.8 g/dL Critically low 14.0-18.0 [facility] Comment on above: Performed By: #### H BSANS #### [facility] [address] [place] [address] Dr. Shilo Lam MCH (RBC) [Entitic mass] 27.7 pg Normal 25.9-34.0 [facility] Comment on above: Performed By: #### H BSANS #### [facility] [address] [place] [address] Dr. Shilo Lam MCHC (RBC) [Mass/Vol] 33.1 g/dL Normal 29.9-35.2 [facility] Comment on above: Performed By: #### H BSANS #### [facility] [address] [place] [address] [address] Shilo Lam MCV (RBC) [Entitic vol] 83.6 fL Normal 80.0-94.0 [facility] Comment on above: Performed By: #### H BSANS #### [facility] [address] [place] [address] Dr. Shilo Lam PLT 155 103/ul Normal 150-450 [facility] Comment on above: Performed By: #### H BSANS #### [facility] [address] [place] [address] Dr. Shilo Lam RBC 3.18 106/ul Critically low 4.70-6.10 [facility] Comment on above: Performed By: #### H BSANS #### [facility] [address] [place] [address] Dr. Shilo Lam WBC 6.1 103/ul Normal 4.0-11.0 [facility] Comment on above: Performed By: #### H BSANS #### [facility] [address] [place] [address] Dr. Shilo Lam IRON AND TIBCon 09-19-2021 % SATURATION 20.0 % Normal [facility] Comment on above: Performed By: #### H H #### [facility] [address] [place] [address] Dr. Shilo Lam Iron [Mass/Vol] 44.0 ug/dL Critically low 65.0-175.0 [facility] Comment on above: Performed By: #### H H #### [facility] [address] [place] [address] Dr. Shilo Lam TIBC DIRECT 220.0 ug/dL Critically low 250.0-450.0 [facility] Comment on above: Performed By: #### H H #### [facility] [address] [place] [address] Dr. Shilo Lam PROF 14(COMP METB)on 022 Albumin [Mass/Vol] 2.8 g/dL Critically low 3.4-5.0 [facility] Comment on above: Performed By: #### F REELIT #### [facility] [address] [place] [address] [address] Shilo Lam Albumin/Globulin [Mass ratio] 0.6 {ratio} Normal [facility] Comment on above: Performed By: #### F REELIT #### [facility] [address] [place] [address] [address] Shilo Lam ALP [Catalytic activity/Vol] 219 U/L Critically high 46-116 [facility] Comment on above: Performed By: #### F REELIT #### [facility] [address] [place] [address] [address] Shilo Lam ALT [Catalytic activity/Vol] 33 U/L Normal 16-63 [facility] Comment on above: Performed By: #### F REELIT #### [facility] [address] [place] [address] [address] Shilo Lam Anion gap [Moles/Vol] 14.7 mmol/L Normal [facility] Comment on above: Performed By: #### F REELIT #### [facility] [address] [place] [address] [address] Shilo Lam AST [Catalytic activity/Vol] 22 U/L Normal 15-37 [facility] Comment on above: Performed By: #### F REELIT #### [facility] [address] [place] [address] [address] Shilo Lam Bilirubin [Mass/Vol] 0.4 mg/dL Normal 0.2-1.0 [facility] Comment on above: Performed By: #### F REELIT #### [facility] [address] [place] [address] [address] Shilo Lam Calcium [Mass/Vol] 8.4 mg/dL Critically low 8.5-10.1 [facility] Comment on above: Performed By: #### F REELIT #### [facility] [address] [place] [address] [address] Shilo Lam Chloride [Moles/Vol] 109 mmol/L Critically high 98-107 [facility] Comment on above: Performed By: #### F REELIT #### [facility] [address] [place] [address] [address] Shilo Lam CO2 [Moles/Vol] 21.3 mmol/L Normal 21.0-32.0 [facility] Comment on above: Performed By: #### F REELIT #### [facility] [address] [place] [address] Dr. Shilo Lam Creatinine [Mass/Vol] 3.99 mg/dL Critically high 0.70-1.30 [facility] Comment on above: Performed By: #### F REELIT #### [facility] [address] [place] [address] Dr. Shilo Lam EGFR-AF SAMOAN 19 mL/min/1.73m2 Critically low >=60 [facility] Comment on above: Performed By: #### F REELIT #### [facility] [address] [place] [address] Dr. Shilo Lam EGFR-NON AF SAMOAN 16 mL/min/1.73m2 Critically low >=60 [facility] Comment on above: Performed By: #### F REELIT #### [facility] [address] [place] [address] Dr. Shilo Lam Globulin (S) [Mass/Vol] 4.8 g/dL Normal [facility] Comment on above: Performed By: #### F REELIT #### [facility] [address] [place] [address] Dr. Shilo Lam Glucose [Mass/Vol] 137 mg/dL Critically high 74-106 [facility] Comment on above: Performed By: #### F REELIT #### [facility] [address] [place] [address] Dr. Shilo Lam Potassium [Moles/Vol] 4.0 mmol/L Normal 3.5-5.1 [facility] Comment on above: Performed By: #### F REELIT #### [facility] [address] [place] [address] Dr. Shilo Lam Protein [Mass/Vol] 7.6 g/dL Normal 6.4-8.2 [facility] Comment on above: Performed By: #### F REELIT #### [facility] [address] [place] [address] Dr. Shilo Lam Sodium [Moles/Vol] 141 mmol/L Normal 136-145 [facility] Comment on above: Performed By: #### F REELIT #### [facility] [address] [place] [address] Dr. Shilo Lam Urea nitrogen [Mass/Vol] 54.0 mg/dL Critically high 7.0-18.0 [facility] Comment on above: Performed By: #### F KYLIELIT #### [facility] [address] [place] [address] Dr. Shilo Lam Urea nitrogen/Creatinine [Mass ratio] 13.5 mg/mg Normal [facility] Comment on above: Performed By: #### F REELIT #### [facility] [address] [place] [address] Dr. Shilo Lam UA RANDOMon 09-19-2021 Bilirubin Ql (U) Negative Normal NEGATIVE [facility] Comment on above: Performed By: #### H H #### [facility] [address] [place] [address] Dr. Shilo Lam Clarity (U) CLEAR Normal CLEAR [facility] Comment on above: Performed By: #### H H #### [facility] [address] [place] [address] Dr. Shilo Lam Color (U) LT. YELLOW Normal YELLOW [facility] Comment on above: Performed By: #### H H #### [facility] [address] [place] [address] Dr. Shilo Lam Glucose Ql (U) 100 mg/dl Abnormal NEGATIVE [facility] Comment on above: Performed By: #### H H #### [facility] [address] [place] [address] Dr. Shilo Lam Hemoglobin Ql (U) Negative Normal NEGATIVE [facility] Comment on above: Performed By: #### H H #### [facility] [address] [place] [address] Dr. Shilo Lam Ketones Ql (U) Negative Normal NEGATIVE [facility] Comment on above: Performed By: #### H H #### [facility] [address] [place] [address] Dr. Shilo Lam LEUKOCYTES Negative Normal NEGATIVE [facility] Comment on above: Performed By: #### H H #### [facility] [address] [place] [address] Dr. Shilo Lam Nitrite Ql (U) Negative Normal NEGATIVE [facility] Comment on above: Performed By: #### H H #### [facility] [address] [place] [address] Dr. Shilo Lam pH (U) 5.5 [pH] Normal 5-9 [facility] Comment on above: Performed By: #### H H #### [facility] [address] [place] [address] Dr. Shilo Lam SPEC GRAVITY 1.025 Normal 1.005-<=1.025 [facility] Comment on above: Performed By: #### H H #### [facility] [address] [place] [address] Dr. Shilo Lam UA PROTEIN >300 Abnormal NEGATIVE/ TRACE [facility] Comment on above: Performed By: #### H H #### [facility] [address] [place] [address] Dr. Shilo Lam Urobilinogen Qn (U) 0.2 {Gama'U}/dL Normal 0.2 - 1. 0 [facility] Comment on above: Performed By: #### H H #### [facility] [address] [place] [address] Dr. Shilo Lam URINE T PROTEIN CREAT RATIOo n 09-19-2021 Protein (U) [Mass/Vol] 862.4 mg/dL Critically high <=12.0 [facility] Comment on above: Performed By: #### H BSANS #### [facility] [address] [place] [address] Dr. Shilo Lam UR PROT CREAT RAT 8.46 Normal [facility] Comment on above: Performed By: #### H BSANS #### [facility] [address] [place] [address] [address] Shilo Lam URINE CREAT 101.94 mg/dL Normal 20.00-300.00 [facility] Comment on above: Performed By: #### H BSANS #### [facility] [address] [place] [address] [address] Shilo Lam VITAMIN D 25 OHon 09-19-2021 VIT D 25-OH 27.7 ng/mL Normal [facility] Comment on above: Performed By: #### H H #### [facility] [address] [place] [address] [address] Shilo Lam VIT D RANGES SEE BELOW Normal [facility] Comment on above: Result Comment: <20 ng/mL Vit D deficient 20 - <30 ng/mL Vit D insufficient 30 - 100 ng/mL Vit D sufficient >100 ng/mL Potential Toxicity Performed By: #### H H #### [facility] [address] [place] [address] [address] Shilo Lam Cardiovascular Lab Reporton 05-21-2021 Cardiovascular Lab Report [facility] Patient Name: Nicol[facility] MR #: [id number] Physician: Casimiro Modi Department of Florencio Sosa Medicine Service Date: 05/20/2021 Division of Birthdate: 1965 Cardiology Room #: [facility] Cardiovascular Services [place] [address] Cardiovascular Laboratory Report INDICATION: The patient is [...] He signed consent. He was brought to ship laborer in a fasting state. The right neck area was prepped and draped in usual fashion. Micropuncture technique and ultrasound guidance was used for access in the right internal jugular vein. A 6-Telugu x 11 cm sheath was placed. A 6-Telugu Silvestre catheter was used for heart catheterization [...] output 11.61, cardiac index 5.23. FINDINGS: 1. Bdov-qu-ijabigrw elevation of filling pressures. 2. Wjyi-uc-wgvbrdbe pulmonary hypertension. 3. No evidence of intracardiac [...] Sosa M.D. Date Trans: 05/21/2021 03:58 A/katey [id number] cc: Douglas Juárez M.D. [address] [place] [address] Normal [facility] CBC W/DIFFon 05-20-2021 ABS IMM GRANS 0.0 10*3/uL Normal 0.0-0.2 [facility] Comment on above: Performed By: #### 5 010 #### [facility] [address] [place] [address], [facility] ABS NEUTROPHILS 4.5 10*3/uL Normal 1.6-7.6 [facility] Comment on above: Performed By: #### 5 0103 #### [facility] [address] [place] [address], [facility] Basophils (Bld) [#/Vol] 0.0 10*3/uL Normal 0.0-0.2 [facility] Comment on above: Performed By: #### 5 102 #### [facility] [address] [place] [address], [facility] Basophils/100 WBC (Bld) 0.5 % Normal 0.0-1.0 T noe [facility] Comment on above: Performed By: #### 5 0103 #### [facility] [address] [place] [address], [facility] Eosinophils (Bld) [#/Vol] 0.2 10*3/uL Normal 0.0-0.5 [facility] Comment on above: Performed By: #### 5 3 #### [facility] [address] [place] [address], [facility] Eosinophils/100 WBC (Bld) 3.1 % Normal 0.0-6.0 [facility] Comment on above: Performed By: #### 5 102 #### [facility] [address] [place] [address], [facility] Erythrocyte distribution width (RBC) [Ratio] 16.1 % High 11.5-15.0 [facility] Comment on above: Performed By: #### 5 3 #### [facility] [address] Hematocrit (Bld) [Volume fraction] 27.0 % Low 39.0-50.0 [facility] Comment on above: Performed By: #### 5 3 #### [facility] [address] Hemoglobin (Bld) [Mass/Vol] 8.5 g/dL Low 13.0-17.0 [facility] Comment on above: Performed By: #### 3 #### [facility] [address] IMMATURE GRANS 0.2 % Normal 0.0-1.0 [facility] Comment on above: Performed By: #### 102 #### [facility] [address] Lymphocytes (Bld) [#/Vol] 0.7 10*3/uL Low 1.2-4.0 [facility] Comment on above: Performed By: #### 5 3 #### [facility] [address] Lymphocytes/100 WBC (Bld) 11.1 % Low 20.0-45.0 [facility] Comment on above: Performed By: #### 5 3 #### [facility] [address] MCH (RBC) [Entitic mass] 25.1 pg Low 27.0-33.0 [facility] Comment on above: Performed By: #### 5 3 #### [facility] [address] MCHC (RBC) [Mass/Vol] 31.5 g/dL Low 32.0-35.0 [facility] Comment on above: Performed By: #### 3 #### [facility] [address] [place] [address], [facility] MCV (RBC) [Entitic vol] 79.9 fL Low 82.0-98.0 T he [facility] Comment on above: Performed By: #### 5 0103 #### [facility] [address] [place] [address], [facility] Monocytes (Bld) [#/Vol] 0.7 10*3/uL Normal 0.1-1.0 [facility] Comment on above: Performed By: #### 5 0103 #### [facility] [address] [facility] [place] [place] [address], [facility] MONOS 12.1 % High 5.0-12.0 [facility] Comment on above: Performed By: #### 5 0103 #### [facility] [address] [facility] [place] [address], [facility] Neutrophils/100 WBC (Bld) 73.0 % High 40.0-72.0 [facility] Comment on above: Performed By: #### 5 0103 #### [facility] [address] [facility] [place] [address], [facility] Nucleated RBC/100 WBC (Bld) [Ratio] 0 % Normal 0-0 [facility] Comment on above: Performed By: #### 5 0103 #### [facility] [address] [place] [address], [facility] [facility] 154 10*3/uL Normal 150-400 [facility] Comment on above: Performed By: #### [id number] #### [facility] [address] [place] [id number], [facility] RBC (Bld) [#/Vol] 3.38 10*6/uL Low 4.20-5.70 [facility] Comment on above: Performed By: #### 5 3 #### [facility] [address] WBC (Bld) [#/Vol] 6.14 10*3/uL Normal 4.00-10.60 [facility] Comment on above: Performed By: #### [id number] #### [facility] [address] [facility]. [address] POC SARS COV2 IDon 2 SARS-CoV-2 (COVID-19) RNA HUMBLE+probe Ql (Unsp spec) Negative Normal NEGATIVE [facility] Comment [...] Accreditation. Performed By: #### 3 1921 #### [facility] 3000 [facility]. [address] Vital Signs Date Time Vital Sign Value Performing Clinician Facility 09-25-2024 13:26-0400 Body height 193 cm Leann Corado DPM Work Phone: [facility] 09-25-2024 [id number] Body mass index (BMI) [Ratio] 23.49 kg/m2 Leann Corado DPM Work Phone: [facility] 09-25-2024 13:26-040 Body weight 87.54 kg Leann Corado DPM Work Phone: [facility] 08-10-2024 13:30-0400 Body height 193.04 cm [facility] 08-10-2024 13:30-0400 Body mass index (BMI) [Ratio] 25.3 kg/m2 [facility] 08-10-2024 13:30-0400 Body weight 94.34 kg [facility] 08-10-2024 13:30-0400 Diastolic blood pressure 70 mm[Hg] [facility] 08-10-2024 13:30-0400 Heart rate 70 /min [facility] 08-10-2024 13:30-0400 Systolic blood pressure 118 mm[Hg] [facility] 07-18-2024 13:44-0400 Body height 193 cm Leann Montgomery DPM Work Phone: [facility] 07-18-2024 13:44-0400 Body mass index (BMI) [Ratio] 23.49 kg/m2 Leann Corado DPM Work Phone: [facility] 07-18-2024 13:44-0400 Body weight 87.54 kg Leann Corado DPM Work Phone: [facility] 09-16-2023 14:32-0400 Blood Pressure Location Ashutosh JEFFERYL [facility] 09-16-2023 14:32-0400 Diastolic blood pressure 69 mm[Hg] Ashutosh NILL [facility] 09-16-2023 14:32-0400 Heart rate 66 /min Ashutosh NILL [facility] 09-16-2023 14:32-0400 Respiratory rate 16 /min Ashutosh NILL [facility] 09-16-2023 14:32-0400 Systolic blood pressure 107 mm[Hg] Ashutosh NILL [facility] 06-15-2022 10:20-0400 Body temperature 97.8 [degF] MD Douglas Juárez Work Phone: [facility] 06-15-2022 10:20-0400 Diastolic blood pressure 64 mm[Hg] MD Douglas Juárez Work Phone: [facility] 06-15-2022 10:20-0400 Heart rate 55 /min MD Douglas Juárze Work Phone: [facility] 06-15-2022 10:20-0400 Respiratory rate 22 /min MD Douglas Juárez Work Phone: [facility] 06-15-2022 10:20-0400 SaO2% (BldA) [Mass fraction] 92 % MD Douglas Juárez Work Phone: [facility] 06-15-2022 10:20-0400 Systolic blood pressure 128 mm[Hg] MD Douglas Juárez Work Phone: [facility] 06-15-2022 04:31-0400 Inhaled oxygen flow rate 1 L/min MD Douglas Juárez Work Phone: [facility] 06-12-2022 14:43-0400 Body height 193.04 cm MD Douglas Juárez Work Phone: [facility] 06-12-2022 04:46-0400 Body weight 92 kg MD Douglas Juárez Work Phone: [facility] 06-11-2022 21:13-0400 Body height 193.04 cm MD Douglas Juárez Work Phone: [facility] 06-11-2022 21:13-0400 Body temperature 98.5 [degF] MD Douglas Juárez Work Phone: [facility] 06-11-2022 21:13-0400 Body weight 92 kg MD Douglas Juárez Work Phone: [facility] 06-11-2022 21:13-0400 Diastolic blood pressure 77 mm[Hg] MD Douglas Juárez Work Phone: [facility] 06-11-2022 21:13-0400 Heart rate 66 /min MD Douglas Juárez Work Phone: [facility] 06-11-2022 21:13-0400 Respiratory rate 21 /min MD Douglas Juárez Work Phone: [facility] 06-11-2022 21:13-0400 SaO2% (BldA) [Mass fraction] 92 % MD Douglas Juárez Work Phone: [facility] 06-11-2022 21:13-0400 Systolic blood pressure 161 mm[Hg] MD Douglas Juárez Work Phone: [facility] 06-08-2022 11:40-0400 Body temperature 98.1 [degF] MD Douglas Juárez Work Phone: [facility] 06-08-2022 11:40-0400 Diastolic blood pressure 60 mm[Hg] MD Douglas Juárez Work Phone: [facility] 06-08-2022 11:40-0400 Heart rate 62 /min MD Douglas Juárez Work Phone: [facility] 06-08-2022 11:40-0400 Systolic blood pressure 113 mm[Hg] MD Douglas Juárez Work Phone: [facility] 06-05-2022 11:21-0400 Respiratory rate 18 /min MD Douglas Juárez Work Phone: [facility] 06-05-2022 11:21-0400 SaO2% (BldA) [Mass fraction] 97 % MD Douglas Juárez Work Phone: [facility] 05-28-2022 15:20-0500 Diastolic blood pressure 72 mm[Hg] MD Douglas Juárez Work Phone: [facility] 05-28-2022 15:20-0500 Heart rate 64 /min MD Douglas Juárez Work Phone: [facility] 05-28-2022 15:20-0500 Respiratory rate 16 /min MD Douglas Juárez Work Phone: [facility] 05-28-2022 15:20-0500 SaO2% (BldA) [Mass fraction] 95 % MD Douglas Juárez Work Phone: [facility] 05-28-2022 15:20-0500 Systolic blood pressure 142 mm[Hg] MD Douglas Juárez Work Phone: [facility] 05-28-2022 14:46-0500 Body temperature 98.4 [degF] MD Douglas Juárez Work Phone: [facility] 05-28-2022 14:16-0500 Inhaled oxygen flow rate 8 L/min MD Douglas Juárez Work Phone: [facility] 05-28-2022 12:45-0500 Body height 193.04 cm MD Douglas Juárez Work Phone: [facility] 05-28-2022 12:45-0500 Body mass index (BMI) [Ratio] 23.1 kg/m2 MD Douglas Juárez Work Phone: [facility] 05-28-2022 12:45-0500 Body weight 86.18 kg MD Douglas Juárez Work Phone: [facility] 05-25-2022 16:07-0500 Body temperature 98.2 [degF] MD Douglas Juárez Work Phone: [facility] 05-25-2022 16:07-0500 Diastolic blood pressure 73 mm[Hg] MD Douglas Juárez Work Phone: [facility] 05-25-2022 16:07-0500 Heart rate 62 /min MD Douglas Juárez Work Phone: [facility] 05-25-2022 16:07-0500 SaO2% (BldA) [Mass fraction] 98 % MD Douglas Juárez Work Phone: [facility] 05-25-2022 16:07-0500 Systolic blood pressure 154 mm[Hg] MD Douglas Juárez Work Phone: [facility] 05-25-2022 11:37-0500 Respiratory rate 16 /min MD Douglas Juárez Work Phone: [facility] 05-25-2022 05:13-0500 Body weight 87 kg MD Douglas Juárez Work Phone: [facility] 05-21-2022 17:46-0500 Body height 193.04 cm MD Douglas Juárez Work Phone: [facility] 05-21-2022 17:46-0500 Body mass index (BMI) [Ratio] 22.6 kg/m2 MD Douglas Juárez Work Phone: [facility] 05-20-2022 15:10-0500 Body temperature 99 [degF] MD Douglas Juárez Work Phone: [facility] 05-20-2022 15:10-0500 Diastolic blood pressure 64 mm[Hg] MD Douglas Juárez Work Phone: [facility] 05-20-2022 15:10-0500 Heart rate 69 /min MD Douglas Juárez Work Phone: [facility] 05-20-2022 15:10-0500 Respiratory rate 18 /min MD Douglas Juárez Work Phone: [facility] 05-20-2022 15:10-0500 SaO2% (BldA) [Mass fraction] 95 % MD Douglas Juárez Work Phone: [facility] 05-20-2022 15:10-0500 Systolic blood pressure 126 mm[Hg] MD Douglas Juárez Work Phone: [facility] 05-20-2022 10:16-0500 Body height 193.04 cm MD Douglas Juárez Work Phone: [facility] 05-20-2022 10:16-0500 Body weight 90.71 kg MD Douglas Juárez Work Phone: [facility] 05-08-2022 15:41-0500 Body temperature 99.2 [degF] MD Douglas Juárez Work Phone: [facility] 05-08-2022 15:41-0500 Diastolic blood pressure 64 mm[Hg] MD Douglas Juárez Work Phone: [facility] 05-08-2022 15:41-0500 Heart rate 60 /min MD Douglas Juárez Work Phone: [facility] 05-08-2022 15:41-0500 Respiratory rate 16 /min MD Douglas Juárez Work Phone: [facility] 05-08-2022 15:41-0500 SaO2% (BldA) [Mass fraction] 95 % MD Douglas Juárez Work Phone: [facility] 05-08-2022 15:41-0500 Systolic blood pressure 138 mm[Hg] MD Douglas Juárez Work Phone: [facility] 05-08-2022 10:00-0500 Body height 193.04 cm MD Douglas Juárez Work Phone: [facility] 05-08-2022 04:10-0500 Body weight 90.71 kg MD Douglas Juárez Work Phone: [facility] 05-07-2022 11:42-0500 Body mass index (BMI) [Ratio] 23.8 kg/m2 MD Douglas Juárez Work Phone: [facility] 05-05-2022 16:22-0500 Diastolic blood pressure 58 mm[Hg] MD Douglas Juárez Work Phone: [facility] 05-05-2022 16:22-0500 Heart rate 65 /min MD Douglas Juárez Work Phone: [facility] 05-05-2022 16:22-0500 Respiratory rate 18 /min MD Douglas Juáerz Work Phone: [facility] 05-05-2022 16:22-0500 SaO2% (BldA) [Mass fraction] 100 % MD Douglas Juárez Work Phone: [facility] 05-05-2022 16:22-0500 Systolic blood pressure 126 mm[Hg] MD Douglas Juárez Work Phone: [facility] 05-05-2022 11:33-0500 Body height 193.04 cm MD Douglas Juárez Work Phone: [facility] 05-05-2022 11:33-0500 Body temperature 98.2 [degF] MD Douglas Juárez Work Phone: [facility] 05-05-2022 11:33-0500 Body weight 89 kg MD Douglas Juárez Work Phone: [facility] 04-16-2022 14:51-0500 Body height 193 cm Monik Dotson APRN.ACCT EXEC Work Phone: [facility] 04-16-2022 14:51-0500 Body temperature 97 [degF] Monik Dotson APRN.ACCT EXEC Work Phone: [facility] 04-16-2022 14:51-0500 Body weight 89.81 kg Monik Dotson APRN.ACCT EXEC Work Phone: [facility] 04-16-2022 14:51-0500 Diastolic blood pressure 61 mm[Hg] Monik Dotson APRN.ACCT EXEC Work Phone: [facility] 04-16-2022 14:51-0500 Heart rate 59 /min Monik Dotson APRN.ACCT EXEC Work Phone: [facility] 04-16-2022 14:51-0500 Respiratory rate 18 /min Monik Dotson APRN.ACCT EXEC Work Phone: [facility] 04-16-2022 14:51-0500 SaO2% (BldA) [Mass fraction] 95 % Monik Dotson APRN.ACCT EXEC Work Phone: [facility] 04-16-2022 14:51-0500 Systolic blood pressure 136 mm[Hg] Monik Dotson APRN.ACCT EXEC Work Phone: [facility] 03-24-2022 14:00-0500 Body height 193.04 cm Cristobal Butts Other [employer] Other 03-24-2022 14:00-0500 Body mass index (BMI) [Ratio] 23.59 kg/m2 Cristobal Butts Other [employer] Other 03-24-2022 14:00-0500 Body temperature 97.7 [degF] Cristobal Schmitts Other [employer] Other 03-24-2022 14:00-0500 Body weight 87.91 kg Cristobal Schmitts Other [employer] Other 03-24-2022 14:00-0500 Diastolic blood pressure 70 mm[Hg] Cristobal Schmitts Other [employer] Other 03-24-2022 14:00-0500 Respiratory rate 18 /min Cristobal Schmitts Other [employer] Other 03-24-2022 14:00-0500 SaO2% (BldA) [Mass fraction] 98 % Cristobal Schmitts Other [employer] Other 03-24-2022 14:00-0500 Systolic blood pressure 139 mm[Hg] Cristobal Schmitts Other [employer] Other 03-18-2022 14:37-0500 Body temperature 97.5 [degF] [facility] Work Phone: [facility] 03-18-2022 14:37-0500 Diastolic blood pressure 92 mm[Hg] [facility] [place] Work Phone: [facility] 03-18-2022 14:37-0500 Heart rate 60 /min [facility] Work Phone: [facility] 03-18-2022 14:37-0500 Respiratory rate 18 /min [facility] [place] Work Phone: [facility] 03-18-2022 14:37-0500 SaO2% (BldA) [Mass fraction] 97 % [facility] [place] Work Phone: [facility] 03-18-2022 14:37-0500 Systolic blood pressure 152 mm[Hg] [facility] Work Phone: [facility] 02-04-2022 14:05-0500 Body temperature 97.81 [degF] [facility] [place] Work Phone: [facility] 02-04-2022 14:05-0500 Diastolic blood pressure 66 mm[Hg] [facility] [place] Work Phone: [facility] 02-04-2022 14:05-0500 Heart rate 66 /min [facility] [place] Work Phone: [facility] 02-04-2022 14:05-0500 Respiratory rate 18 /min [facility] [place] Work Phone: [facility] 02-04-2022 14:05-0500 SaO2% (BldA) [Mass fraction] 99 % [facility] [place] Work Phone: [facility] 02-04-2022 14:05-0500 Systolic blood pressure 141 mm[Hg] [facility] Work Phone: [facility] 01-14-2022 14:22-0400 Body height 193 cm Monik Dotson APRN.ACCT EXEC Work Phone: [facility] 01-14-2022 14:22-0400 Body temperature 97.59 [degF] Monik Dotson APRN.ACCT EXEC Work Phone: [facility] 01-14-2022 14:22-0400 Body weight 86.46 kg Monik Dotson APRN.ACCT EXEC Work Phone: [facility] 01-14-2022 14:22-0400 Diastolic blood pressure 58 mm[Hg] Monik Dotson APRN.ACCT EXEC Work Phone: [facility] 01-14-2022 14:22-0400 Heart rate 57 /min Monik Dotson APRN.ACCT EXEC Work Phone: [facility] 01-14-2022 14:22-0400 Respiratory rate 16 /min Monik Dotson APRN.ACCT EXEC Work Phone: [facility] 01-14-2022 14:22-0400 SaO2% (BldA) [Mass fraction] 97 % Monik Dotson APRN.ACCT EXEC Work Phone: [facility] 01-14-2022 14:22-0400 Systolic blood pressure 130 mm[Hg] Monik Dotson APRN.ACCT EXEC Work Phone: [facility] 12-30-2021 11:00-0400 Body height 193.04 cm Ford Sam Other [employer] Other 12-30-2021 11:00-0400 Body mass index (BMI) [Ratio] 23.73 kg/m2 [employer] Sam Other [employer] Other 12-30-2021 11:00-0400 Body weight 88.45 kg Ford Sam Other [employer] Other 12-17-2021 14:08-0400 Body height 193 cm Conrad Rojas MD Work Phone: [facility] 12-17-2021 14:08-0400 Body temperature 97.7 [degF] Conrad Rojas MD Work Phone: [facility] 12-17-2021 14:08-0400 Body weight 87.82 kg Conrad Roajs MD Work Phone: [facility] 12-17-2021 14:08-0400 Diastolic blood pressure 65 mm[Hg] Conrad Rojas MD Work Phone: [facility] 12-17-2021 14:08-0400 Heart rate 56 /min Conrad Rojas MD Work Phone: [facility] 12-17-2021 14:08-0400 Respiratory rate 16 /min Conrad Rojas MD Work Phone: [facility] 12-17-2021 14:08-0400 SaO2% (BldA) [Mass fraction] 98 % Conrad Rojas MD Work Phone: [facility] 12-17-2021 14:08-0400 Systolic blood pressure 132 mm[Hg] Conrad Rojas MD Work Phone: [facility] 12-09-2021 14:00-0400 Body height 193.04 cm Cristobal Schmitts Other [employer] Other 12-09-2021 14:00-0400 Body mass index (BMI) [Ratio] 24.17 kg/m2 Cristobal Print[employer] Other [employer] Other 12-09-2021 14:00-0400 Body weight 90.08 kg Cristobal [employer] Other [employer] Other 12-09-2021 14:00-0400 Diastolic blood pressure 68 mm[Hg] Azmaryuri YOOWALKhelens Other [employer] Other 12-09-2021 14:00-0400 Respiratory rate 18 /min Cristobal YOOWALKhelens Other [employer] Other 12-09-2021 14:00-0400 SaO2% (BldA) [Mass fraction] 96 % Azmaryuri [employer] Other [employer] Other 12-09-2021 14:00-0400 Systolic blood pressure 137 mm[Hg] Cristobal Butts Other [facility] [employer] Other 12-03-2021 13:40-0400 Body height 193 cm Monik Dotson APRN.ACCT EXEC Work Phone: [facility] 12-03-2021 13:40-0400 Body temperature 97.59 [degF] Monik Dotson APRN.ACCT EXEC Work Phone: [facility] 12-03-2021 13:40-0400 Body weight 89.63 kg Monik Dotson APRN.ACCT EXEC Work Phone: [facility] 12-03-2021 13:40-0400 Diastolic blood pressure 69 mm[Hg] Monik Dotson APRN.ACCT EXEC Work Phone: [facility] 12-03-2021 13:40-0400 Heart rate 60 /min Monik Dotson APRN.ACCT EXEC Work Phone: [facility] 12-03-2021 13:40-0400 Respiratory rate 16 /min Monik Dotson APRN.ACCT EXEC Work Phone: [facility] 12-03-2021 13:40-0400 SaO2% (BldA) [Mass fraction] 98 % Monik Dotson APRN.ACCT EXEC Work Phone: [facility] 12-03-2021 13:40-0400 Systolic blood pressure 142 mm[Hg] Monik Dotson APRN.ACCT EXEC Work Phone: [facility] 11-19-2021 13:55-0400 Body temperature 98.1 [degF] [facility] Work Phone: [facility] 11-19-2021 13:55-0400 Diastolic blood pressure 63 mm[Hg] [facility] Work Phone: [facility] 11-19-2021 13:55-0400 Heart rate 59 /min [facility] Work Phone: [facility] 11-19-2021 13:55-0400 Respiratory rate 18 /min [facility] [place] Work Phone: [facility] 11-19-2021 13:55-0400 SaO2% (BldA) [Mass fraction] 97 % [facility] Work Phone: [facility] 11-19-2021 13:55-0400 Systolic blood pressure 138 mm[Hg] [facility] Work Phone: [facility] 11-17-2021 14:23-0400 Body temperature 97.9 [degF] MD Douglas Juárez Work Phone: [facility] 11-17-2021 14:23-0400 Diastolic blood pressure 66 mm[Hg] MD Douglas Juárez Work Phone: [facility] 11-17-2021 14:23-0400 Heart rate 51 /min MD Douglas Juárez Work Phone: [facility] 11-17-2021 14:23-0400 Respiratory rate 18 /min MD Douglas Juárez Work Phone: [facility] 11-17-2021 14:23-0400 SaO2% (BldA) [Mass fraction] 97 % MD Douglas Juárez Work Phone: [facility] 11-17-2021 14:23-0400 Systolic blood pressure 132 mm[Hg] MD Douglas Juárez Work Phone: [facility] 10-22-2021 13:52-0400 Body temperature 98.01 [degF] [facility] Work Phone: [facility] 10-22-2021 13:52-0400 Diastolic blood pressure 60 mm[Hg] [facility] Work Phone: [facility] 10-22-2021 13:52-0400 Heart rate 65 /min [facility] Work Phone: [facility] 10-22-2021 13:52-0400 Respiratory rate 18 /min [facility] Work Phone: [facility] 10-22-2021 13:52-0400 Systolic blood pressure 140 mm[Hg] [facility] Work Phone: [facility] 10-02-2021 15:50-0400 Body height 193 cm Conrad Rojas MD Work Phone: [facility] 10-02-2021 15:50-0400 Body temperature 97.5 [degF] Conrad Rojas MD Work Phone: [facility] 10-02-2021 15:50-0400 Body weight 91.63 kg Conrad Rojas MD Work Phone: [facility] 10-02-2021 15:50-0400 Diastolic blood pressure 58 mm[Hg] Conrad Rojas MD Work Phone: [facility] 10-02-2021 15:50-0400 Heart rate 61 /min Conrad Rojsa MD Work Phone: [facility] 10-02-2021 15:50-0400 Respiratory rate 18 /min Conrad Rojas MD Work Phone: [facility] 10-02-2021 15:50-0400 SaO2% (BldA) [Mass fraction] 97 % Conrad Rojas MD Work Phone: [facility] 10-02-2021 15:50-0400 Systolic blood pressure 138 mm[Hg] Conrad Rojas MD Work Phone: [facility] 09-24-2021 14:40-0400 Body height 193.04 cm Cristobal Butts Other [employer] Other 09-24-2021 14:40-0400 Body mass index (BMI) [Ratio] 24.54 kg/m2 Cristobal Butts Other [employer] Other 09-24-2021 14:40-0400 Body temperature 96.9 [degF] Aziz Bakhous Other [employer] Other 09-24-2021 14:40-0400 Body weight 91.45 kg Aziz Bakhous Other [employer] Other 09-24-2021 14:40-0400 Diastolic blood pressure 64 mm[Hg] Aziz Bakhous Other [employer] Other 09-24-2021 14:40-0400 Respiratory rate 18 /min Azmaryuri Bakhous Other [employer] Other 09-24-2021 14:40-0400 SaO2% (BldA) [Mass fraction] 98 % Azmaryuri Bakhous Other [employer] Other 09-24-2021 14:40-0400 Systolic blood pressure 124 mm[Hg] Aziz Bakhous Other [employer] Other 07-15-2021 12:40-0400 Body height 193.04 cm Azmaryuri Bakhous Other [employer] Other 07-15-2021 12:40-0400 Body mass index (BMI) [Ratio] 24.93 kg/m2 Aziz Bakhous Other [employer] Other 07-15-2021 12:40-0400 Body temperature 96.3 [degF] Aziz Bakhous Other [employer] Other 07-15-2021 12:40-0400 Body weight 92.9 kg Aziz Bakhous Other [employer] Other 07-15-2021 12:40-0400 Diastolic blood pressure 64 mm[Hg] Aziz Bakhous Other [employer] Other 07-15-2021 12:40-0400 Respiratory rate 18 /min Aziz Bakhous Other [employer] Other 07-15-2021 12:40-0400 SaO2% (BldA) [Mass fraction] 98 % Aziz Bakhous Other [employer] Other 07-15-2021 12:40-0400 Systolic blood pressure 121 mm[Hg] Aziz Bakhous Other [employer] Other 06-03-2021 16:40-0400 Body height 193.04 cm Aziz Bakhous Other [employer] Other 06-03-2021 16:40-0400 Body mass index (BMI) [Ratio] 23.86 kg/m2 Aziz Bakhous Other [employer] Other 06-03-2021 16:40-0400 Body temperature 96.7 [degF] Aziz Bakhous Other [employer] Other 06-03-2021 16:40-0400 Body weight 88.91 kg Aziz Bakhous Other [employer] Other 06-03-2021 16:40-0400 Diastolic blood pressure 67 mm[Hg] Aziz Bakhous Other [employer] Other 06-03-2021 16:40-0400 Respiratory rate 18 /min Aziz Bakhous Other [employer] Other 06-03-2021 16:40-0400 SaO2% (BldA) [Mass fraction] 98 % Cristobal Butts Other [employer] Other 06-03-2021 16:40-0400 Systolic blood pressure 116 mm[Hg] Cristobal Butts Other [facility] [employer] Other Encounters Encounter Date Encounter Type Care Provider Facility Start: 11-14-2024 End: 11-14-[address] [facility] Start: 11-14-2024 End: 11-14-2024 [facility] Start: 10-31-2024 ambulatory [facility] Start: 10-31-2024 Encounter for other preprocedural examination [facility] Start: 10-19-2024 End: 10-19-2024 ambulatory [facility] Start: 10-09-2024 End: 10-09-2024 Telephone encounter Leann ECHAVARRIAM Work Phone: [facility] Comment on above: Advice Only (Keeping DM Shoes ) Start: 10-04-2024 End: 10-04-2024 ambulatory [facility] Start: 09-25-2024 End: 09-25-2024 Bamboo flowsheet Leann Corado DPM Work Phone: [facility] Start: 09-25-2024 End: 09-25-2024 Bamboo flowsheet Leann Corado DPM Work Phone: [facility] Start: 09-25-2024 End: 09-25-2024 Patient encounter procedure Leann Corado DPM Work Phone: [facility] Comment on above: Type II diabetes lalito litus with neurological manifestations (HCC) (Primary Dx); Peripheral vascular disease, unspecified; Status post amputation of foot, right (HCC) Start: 09-25-2024 End: 09-25-2024 ambulatory LEANN CORADO Not Available Start: 09-06-2024 End: 09-06-2024 ambulatory EDDY LARSEN Not Available Start: 09-06-2024 End: 09-06-2024 Patient encounter procedure Eddy Larsen DPM Work Phone: [facility] Comment on above: Status post amputati on of foot, right (HCC) (Primary Dx); Type II diabetes mellitus with neurological manifestations (HCC); Onychomycosis; Corns and callosities Start: 09-06-2024 End: 09-06-2024 Bamboo flowsheet Eddy Larsen DPM Work Phone: [facility] Start: 09-06-2024 End: 09-06-2024 Bamboo flowsheet Eddy Larsen DPM Work Phone: [facility] [facility] Start: 08-30-2024 End: 08-30-2024 [facility] Start: 08-30-2024 ambulatory MULUGETA KAPADIA [facility] Start: 08-10-2024 End: 08-10-2024 ambulatory [facility] Work Phone: Start: 08-10-2024 End: 08-10-2024 Patient encounter procedure [facility] Work Phone: Start: 08-02-2024 End: 08-02-2024 Postop follow up visit related to original px Leann Corado DPM Work Phone: [facility] Comment on above: Status post amputati on of foot, right (CMS/HCC) (Primary Dx); 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/HCC); Peripheral vascular disease, unspecified (CMS/HCC) Start: 08-02-2024 End: 08-02-2024 ambulatory LEANN CORADO Not Available Start: 08-02-2024 End: 08-02-2024 Bamboo flowsheet Leann Corado DPM Work Phone: [facility] Start: 08-02-2024 End: 08-02-2024 Bamboo flowsheet Leann Corado DPM Work Phone: [facility] Start: 07-18-2024 End: 07-18-2024 Bamboo flowsheet Leann Corado DPM Work Phone: [facility] Start: 07-18-2024 End: 07-18-2024 Bamboo flowsheet Leann Corado DPM Work Phone: [facility] Start: 07-18-2024 End: 07-18-2024 Office outpatient new 30 minutes Leann Corado DPM Work Phone: [facility] Comment on above: Peripheral vascular disease, unspecified (CMS/HCC) (Primary Dx); Corns and callosities; 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/HCC); Status post amputation of foot, right (CMS/HCC) Start: 07-18-2024 End: 07-18-2024 ambulatory LEANN CORADO Not Available Start: 06-21-2024 End: 06-21-2024 ambulatory [facility] Start: 06-12-2024 Non-patient / Non-visit [facility] Work Phone: Start: 06-06-2024 End: 06-06-2024 ambulatory EDDY LARSEN Not Available Start: 03-28-2024 End: 03-28-2024 ambulatory EDDY LARSEN Not Available Start: 03-28-2024 End: 03-28-2024 Patient encounter procedure Eddy Larsen DPM Work Phone: [facility] Comment on above: Onychomycosis (Prima ry Dx); Corns and callosities; 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/HCC); Status post amputation of foot, right (CMS/HCC) Start: 03-28-2024 End: 03-28-2024 Bamboo flowsheet Eddy Larsen DPM Work Phone: [facility] Start: 03-28-2024 End: 03-28-2024 Bamboo flowsheet Eddy Larsen DPM Work Phone: [facility] Start: 12-22-2023 End: 12-22-2023 ambulatory [facility] Start: 12-15-2023 End: 12-15-2023 Patient encounter procedure Eddy Larsen DPM Work Phone: [facility] Comment on above: Onychomycosis (Prima ry Dx); Corns and callosities; 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/HCC); Peripheral vascular disease, unspecified ([facility]/HCC) Start: 12-15-2023 End: 12-15-2023 ambulatory EDDY LARSEN Not Available Start: 12-15-2023 End: 12-15-2023 Bamboo flowsheet Eddy Larsen DPM Work Phone: [facility] Start: 12-15-2023 End: 12-15-2023 Bamboo flowsheet Eddy Larsen DPM Work Phone: [facility] Start: 09-16-2023 End: 09-16-2023 ambulatory Ashutosh BULL Facility:[facility] Start: 09-16-2023 End: 09-16-2023 Patient encounter procedure Ashutosh BULL [facility] [place] Start: 09-10-2023 ambulatory Ashutosh BULL Facility:[facility] Start: 08-31-2023 ambulatory Ashutosh BULL Facility:[facility] Start: 08-06-2022 End: 08-06-2022 ambulatory Douglas Juárez Facility:[facility] Start: 07-22-2022 End: 07-22-2022 ambulatory Eddy Larsen Facility:[facility] Start: 07-22-2022 End: 07-22-2022 ambulatory MD Douglas Juárez Work Phone: [facility] Work Phone: Start: 07-22-2022 End: 07-22-2022 Departed Referred MD Douglas Juárez Work Phone: [facility]-Lab [facility] [place] Work Phone: Start: 07-15-2022 End: 07-16-2022 ambulatory Douglas Juárez Facility:[facility] Start: 07-15-2022 End: 07-15-2022 ambulatory MD Douglas Juárez Work Phone: [facility] Work Phone: Start: 07-15-2022 End: 07-15-2022 Discharged Recurring MD Douglas Juárez Work Phone: [facility]-Infusion Therapy - [facility] Work Phone: Start: 07-09-2022 End: 07-10-2022 ambulatory PAOLA VELAZQUEZCKER Facility: Start: 06-18-2022 End: 06-18-2022 ambulatory Ashutosh Thomas Other [employer] Other Start: 06-18-2022 Telephone encounter Ashutosh Thomas [facility] Infectious Disease Start: 06-11-2022 End: 06-15-2022 Evaluation and management of inpatient Caleb Farrar Facility:[facility] Start: 06-11-2022 End: 06-15-2022 Evaluation and management of inpatient MD Douglas Juárez Work Phone: [facility] [place] [facility] Work Phone: Start: 06-10-2022 End: 06-10-2022 ambulatory Eddy Larsen Facility:[facility] Start: 06-10-2022 End: 06-10-2022 ambulatory MD Douglas Juárez Work Phone: [facility] Work Phone: Start: 06-10-2022 End: 06-10-2022 Departed Referred MD Douglas Juárez Work Phone: [facility] [place] Work Phone: Start: 06-08-2022 Telephone encounter Krissy Mirza RN Hematology/Oncology Comment on above: Patient Update; Appo intment Start: 06-08-2022 Registered Recurring MD Nicholas Juárez Work Phone: [facility]Infusion Therapy - [facility] Work Phone: Start: 05-28-2022 End: 05-28-2022 ambulatory Sohan Woos Facility:[facility] Start: 05-28-2022 End: 05-28-2022 Admission to same day surgery center MD Douglas Juárez Work Phone: [facility]-Surgery Center [facility] [place] Start: 05-28-2022 End: 05-28-2022 ambulatory MD Douglas Juárez Work Phone: [facility] Work Phone: Start: 05-27-2022 Registered Recurring MD Nicholas Juárez Work Phone: [facility]Infusion Therapy - [facility] Work Phone: Start: 05-25-2022 End: 05-25-2022 ambulatory Ashutosh Thomas Other [employer] Other Start: 05-25-2022 Telephone encounter Ashutosh Thomas G Infectious Disease Start: 05-20-2022 End: 05-25-2022 Evaluation and management of inpatient Scotty Kahn Facility:[facility] Start: 05-20-2022 End: 05-25-2022 Evaluation and management of inpatient MD Douglas Juárez Work Phone: [facility] [place] [facility] Work Phone: Start: 05-19-2022 End: 05-19-2022 ambulatory Douglas Juárez Facility:[facility] Start: 05-19-2022 End: 05-19-2022 ambulatory MD Douglas Juárez Work Phone: [facility] Work Phone: Start: 05-19-2022 End: 05-19-2022 Departed Referred MD Douglas Juárez Work Phone: [facility] [place] Work Phone: Start: 05-05-2022 End: 05-08-2022 Evaluation and management of inpatient MD Douglas Juárez Work Phone: [facility] Work Phone: Start: 05-05-2022 End: 05-06-2022 ambulatory BROCK RICHARDJAYLAN Facility:[facility] Start: 05-04-2022 End: 05-05-2022 ambulatory ALEN CEDILLO Facility:[facility] Start: 04-29-2022 End: 04-30-2022 ambulatory AZIZ [email or web address] [place] [employer] Other Start: 04-29-2022 Telephone encounter Azmaryuri YOOWALKhous [facility] Start: 04-16-2022 End: 04-16-2022 ambulatory [facility] Work Phone: Hematology/Oncology Comment on above: Anemia due to stage 3b chronic kidney disease (HCC) (Primary Dx) Anemia due to stage 3b chronic kidney disease (HCC) (Primary Dx); Hypothyroidism, unspecified type Start: 04-16-2022 End: 04-16-2022 Patient encounter procedure Monik Dotson APRN.ACCT EXEC Work Phone: [facility] Start: 03-24-2022 End: 03-24-2022 ambulatory Aziz YOOWALKhous Other [employer] Other Start: 03-24-2022 Office outpatient vi sit 25 minutes Aziz Bakhous [facility] Start: 03-24-2022 Telephone encounter Azmaryuri YOOWALKhous [facility] Start: 03-18-2022 End: 03-19-2022 ambulatory [facility] [place] Work Phone: Hematology/Oncology Comment on above: Anemia due to stage 3b chronic kidney disease (HCC) (Primary Dx) Start: 03-17-2022 End: 03-18-2022 ambulatory AZIZ BAKHOUS Facility:[facility] Start: 02-18-2022 End: 02-18-2022 ambulatory [facility] [place] Work Phone: Hematology/Oncology Comment on above: Anemia due to stage 3b chronic kidney disease (HCC) (Primary Dx) Start: 02-04-2022 End: 02-05-2022 ambulatory JOSH CLAYAMLOU Facility:[facility] Start: 02-04-2022 End: 02-04-2022 ambulatory [facility] [place] Work Phone: Hematology/Oncology Comment on above: Anemia due to stage 3b chronic kidney disease (HCC) (Primary Dx) Start: 01-14-2022 End: 01-14-2022 ambulatory MONIK DOTSON Facility:[facility] Start: 01-14-2022 End: 01-14-2022 ambulatory Monik Dotson NITROGLYCERIN DISTRIBUTOR.ACCT EXEC Work Phone: Hematology/Oncology Comment on above: Anemia due to stage 3b chronic kidney disease (HCC) (Primary Dx); Hypothyroidism, unspecified type Start: 01-14-2022 End: 01-14-2022 Patient encounter procedure Monik Dotson NITROGLYCERIN DISTRIBUTOR.ACCT EXEC Work Phone: [facility] Start: 12-30-2021 End: 12-30-2021 ambulatory Ford Sam Other [employer] Other Start: 12-30-2021 FQ[facility] visit new patient Ford CASTELLANOS [facility] Start: 12-17-2021 End: 12-18-2021 ambulatory CONRAD ROJAS Facility:[facility] Start: 12-17-2021 End: 12-17-2021 ambulatory Conrad Rojas MD Work Phone: Hematology/Oncology Comment on above: Anemia due to stage 4 chronic kidney disease (HCC) (Primary Dx) Start: 12-17-2021 End: 12-17-2021 Patient encounter procedure Conrad Rojas MD Work Phone: [facility] Start: 12-09-2021 End: 12-09-2021 ambulatory Cristobal Butts Other [facility] [employer] Other Start: 12-09-2021 Office outpatient vi sit 25 minutes Cristobal Butts [facility] Start: 12-04-2021 End: 12-05-[address] DOCTOR MILES Facility:[facility] Start: 12-04-2021 Telephone encounter Monik armstrong APRN.ACCT EXEC Work Phone: Hematology/Oncology Comment on above: Infusions Start: 12-03-2021 End: 12-03-2021 ambulatory Monik Dotson APRN.ACCT EXEC Work Phone: Hematology/Oncology Comment on above: Anemia due to stage 4 chronic kidney disease (HCC) (Primary Dx) Start: 12-03-2021 End: 12-03-2021 Patient encounter procedure Monik Dotson APRN.ACCT EXEC Work Phone: [facility] Start: 11-19-2021 End: 11-20-2021 ambulatory [facility] [place] Work Phone: Hematology/Oncology Comment on above: Anemia due to stage 3b chronic kidney disease (HCC) (Primary Dx) Start: 11-17-2021 End: 11-17-2021 Discharged Recurring MD Douglas Juárez Work Phone: [facility]-Infusion Therapy - O/[facility] Start: 11-05-2021 End: 11-05-2021 ambulatory CONRAD BOB Facility:[facility] Start: 10-22-2021 End: 10-22-2021 ambulatory CONRAD BOB Facility:[facility] Start: 10-22-2021 End: 10-22-2021 ambulatory [facility] [place] Work Phone: Hematology/Oncology Comment on above: Anemia due to stage 3b chronic kidney disease (HCC) (Primary Dx) Start: 10-16-2021 End: 10-17-2021 ambulatory CONRAD ROJAS Facility:[facility] Start: 10-16-2021 End: 10-17-2021 ambulatory Conrad Rojas [...] . Facility:[facility] Start: 09-24-2021 End: 09-24-2021 ambulatory Azmaryuri Bakhelens Other [employer] Other Start: 09-24-2021 Office outpatient vi sit 25 minutes Aziz Bakhous [facility] Start: 09-19-2021 End: 09-20-[address] DOCTOR MILES Facility:[facility] Start: 07-15-2021 End: 07-15-2021 ambulatory Aziz Bakhous Other [employer] Other Start: 07-15-2021 Office outpatient vi sit 25 minutes Aziz Bakhous [facility] Start: 06-03-2021 End: 06-03-2021 ambulatory Aziz Bakhous Other [employer] Other Start: 06-03-2021 Office outpatient vi sit 25 minutes Cristobal CASTELLANOS Nephrology Procedures Date Procedure Procedure Detail Performing Clinician Start: 06-14-2022 Antibody screen Tino Larsen Comment on above: Result Comment: PERF ORMED BY: [facility] [address] [place] [address] PATHOLOGIST [employer] SESAR VAUGHN M.D. Start: 06-14-2022 Screening for [...] now? 1 Result Comment: PERF ORMED BY: [facility] [address] [place] [address] PATHOLOGIST [employer] SESAR VAUGHN M.D. Start: 06-11-2022 X-ray of [...] Phone: Start: 05-21-2022 Amputation of toe MD Stover saraibebeto Brysonshannon Work Phone: Start: 05-21-2022 Aerobic microbial culture MD Douglas Juárez Work Phone: Start: 05-21-2022 Anaerobic microbial culture MD Douglas Juárez Work Phone: Start: 05-21-2022 Investigation of tra nsfusion reaction MD Douglas Juárez Work Phone: Start: 05-21-2022 Antibody screen Tino Larsen Comment on above: Order Comment: Trans fuse now? Y Number of units to transfuse now? 1 Result Comment: PERF ORMED BY: [facility] [address] [place] [address] PATHOLOGIST [employer] SESAR VAUGHN M.D. Start: 05-20-2022 MRI of right foot MD Warren Brysonshannon Work Phone: Start: 05-20-2022 Blood culture for [...] Adult depression scr eening assessment Monik Dotson NITROGLYCERIN DISTRIBUTOR.ACCT EXEC Work Phone: Start: 05-18-2018 Colonoscopy Ashutosh VILLALOBOS [...] Start: 02-18-2025 DIABETES SCREEN DIABETES SCREEN [facility] Start: 02-04-2025 DIABETES SCREEN DIABETES SCREEN [facility] Start: 01-14-2025 DIABETES SCREEN DIABETES SCREEN [facility] Start: 12-17-2024 DIABETES SCREEN DIABETES SCREEN [facility] Start: 12-11-2024 End: 12-11-2024 Patient encounter procedure 12/11/2024 3:15 PM EDT Procedure Visit [facility] [address] [place] [phone] Eddy Larsen DPM [address] [place] [address] [facility] Start: 12-03-2024 DIABETES SCREEN DIABETES SCREEN [facility] Start: 11-20-2024 Influenza vaccination [facility] Start: 11-19-2024 DIABETES SCREEN DIABETES SCREEN [facility] Start: 10-22-2024 DIABETES SCREEN DIABETES SCREEN [facility] Start: 10-16-2024 End: 10-16-2024 Patient encounter procedure 10/16/2024 2:45 PM EDT Office Visit [facility] [address] [place] [address] Leann Corado, HARRY [address] [place] [address] [facility] Start: 10-02-2024 DIABETES SCREEN DIABETES SCREEN [facility] Start: 09-25-2024 End: 09-25-2024 Patient encounter procedure 09/25/2024 1:15 PM EDT Office Visit [facility] [address] [place] [address] Leann Corado, ITALIAM [address] [place] [address] Arrived [facility] Comment on above: Arrived Start: 09-18-2024 End: 09-18-2024 Patient encounter procedure 09/18/2024 4:00 PM EDT Office Visit [facility] [address] [place] [address] Leann Corado, DPM [address] [place] [address] [facility] Start: 09-06-2024 End: 09-06-2024 Patient encounter procedure 09/06/2024 2:30 PM EDT Procedure Visit [facility] [address] [place] [phone] Eddy Larsen DPM [address] [place] [address] [facility] Start: 08-10-2024 Patient referral [facility] Work Phone: Start: 08-02-2024 End: 08-02-2024 Patient encounter procedure 08/02/2024 3:15 PM EDT Office Visit [facility] [address] [place] [phone] Leann Corado, HARRY [address], [place] [phone] Arrived [facility] Comment on above: Arrived Start: 07-18-2024 End: 07-18-2024 Patient encounter procedure 07/18/2024 1:45 PM EDT Office Visit [facility] [address] [place] [phone] Leann Corado, HARRY [address] [place] [address] Corns and callosities; 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/HCC); Status post amputation of foot, right (CMS/HCC) [facility] Comment on above: Corns and callositie s; 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/HCC); Status post amputation of foot, right (CMS/HCC) Start: 06-06-2024 End: 06-06-2024 Patient encounter procedure 06/06/2024 3:15 PM EDT Procedure Visit [facility] [address] [place] [phone] Eddy Larsen DPM [address] [place] [address] [facility] Start: 03-28-2024 End: 03-28-2024 Patient encounter procedure 03/28/2024 2:15 PM EST Procedure Visit [facility] [address] [place] [phone] Eddy Larsen DPM [address] [place] [address] [facility] Start: 12-15-2023 End: 12-15-2023 Patient encounter procedure 12/15/2023 3:45 PM EDT Procedure Visit [facility] [address] [place] [address] Eddy Larsen DPM [address] [place] [address] Arrived [facility] Comment on above: Arrived Start: 11-21-2023 Influenza vaccination Influenza Vacc ine (#1) [facility] Start: 04-16-2023 HEMOGLOBIN/HEMATOCRIT HEMOGLOBIN/HEM [facility] Start: 04-16-2023 SERUM CREATININE SERUM CREATININE [facility] Start: 03-18-2023 HEMOGLOBIN/HEMATOCRIT HEMOGLOBIN/HEM [facility] Start: 03-18-2023 SERUM CREATININE SERUM CREATININE [facility] Start: 02-18-2023 HEMOGLOBIN/HEMATOCRIT HEMOGLOBIN/HEM [facility] Start: 02-18-2023 SERUM CREATININE SERUM CREATININE [facility] Start: 02-04-2023 HEMOGLOBIN/HEMATOCRIT HEMOGLOBIN/HEM [facility] Start: 02-04-2023 SERUM CREATININE SERUM CREATININE [facility] Start: 01-14-2023 HEMOGLOBIN/HEMATOCRIT HEMOGLOBIN/HEM [facility] Start: 01-14-2023 SERUM CREATININE SERUM CREATININE [facility] Start: 12-17-2022 HEMOGLOBIN/HEMATOCRIT HEMOGLOBIN/HEM [facility] Start: 12-17-2022 SERUM CREATININE SERUM CREATININE [facility] Start: 12-03-2022 Adult depression screening assessment DEPRESSION SCREENING [facility] Start: 12-03-2022 HEMOGLOBIN/HEMATOCRIT HEMOGLOBIN/HEM [facility] Start: 12-03-2022 SERUM CREATININE SERUM CREATININE [facility] Start: 11-19-2022 HEMOGLOBIN/HEMATOCRIT HEMOGLOBIN/HEM [facility] Start: 11-19-2022 SERUM CREATININE SERUM CREATININE [facility] Start: 10-22-2022 HEMOGLOBIN/HEMATOCRIT HEMOGLOBIN/HEM [facility] Start: 10-22-2022 SERUM CREATININE SERUM CREATININE [facility] Start: 10-02-2022 HEMOGLOBIN/HEMATOCRIT HEMOGLOBIN/HEM ATOCRIT [facility] Start: 10-02-2022 SERUM CREATININE SERUM CREATININE Cl [facility] Start: 07-22-2022 Superficial Wound Culture Superficial Wound Culture [facility] Start: 06-15-2022 [facility] Start: 06-13-2022 [facility] Start: 06-12-2022 Administration of prophylactic treatment [facility] Start: 06-12-2022 Referral to back sewer [facility] Start: 06-12-2022 Comprehensive metabo lic 2000 panel - Serum or Plasma [facility] Start: 06-12-2022 Erythrocyte sedimentation rate by Photometric method [facility] Start: 06-12-2022 [facility] Start: 06-11-2022 Hospital admission [facility] Start: 06-11-2022 Referral to infectio us diseases physician [facility] Start: 06-11-2022 Referral to outdoor illuminating engineer [facility] Start: 06-11-2022 [facility] Start: 06-11-2022 Bacteria identified in Blood by Culture [facility] Start: 06-10-2022 Aerobic microbial culture Superficial Wound Culture [facility] Start: 06-10-2022 Superficial Wound Culture Superficial Wound Culture [facility] Start: 05-28-2022 End: 05-28-2022 [facility] Start: 05-25-2022 Renal function 2000 panel - Serum or Plasma [facility] Start: 05-25-2022 [facility] Start: 05-24-2022 Renal function 1999 panel - Serum or Plasma [facility] Start: 05-24-2022 [facility] Start: 05-23-2022 Renal function 1999 panel - Serum or Plasma [facility] Start: 05-23-2022 [facility] Start: 05-22-2022 Administration of prophylactic treatment [facility] Start: 05-22-2022 Referral to Art Studio Teacher [facility] Start: 05-22-2022 Renal function 1999 panel - Serum or Plasma [facility] Start: 05-22-2022 Vancomycin [Mass/vol ume] in Serum or Plasma [facility] Start: 05-22-2022 End: 05-22-2022 [facility] Start: 05-21-2022 Anaerobic microbial culture Anaerobic Culture [facility] Start: 05-21-2022 Renal function 2000 panel - Serum or Plasma [facility] Start: 05-21-2022 End: 05-21-2022 [facility] Start: 05-20-2022 End: 05-20-2022 [facility] Start: 05-20-2022 Bacteria identified in Blood by Culture Blood Culture [facility] Start: 05-20-2022 Detachment at Right 4th Toe, Complete, Open Approach Detachment at Right 4th Toe, Complete, Open Approach [facility] Start: 05-20-2022 Drainage of Right Fo ot, Open Approach Drainage of Right Foot, Open Approach [facility] Start: 05-20-2022 Excision of Right Fo ot Subcutaneous Tissue and Fascia, Open Approach Excision of Right Foot Subcutaneous Tissue and Fascia, Open Approach [facility] Start: 05-20-2022 Insertion of Infusio n Device into Superior Vena Cava, Percutaneous Approach Insertion of Infusion Device into Superior Vena Cava, Percutaneous Approach [facility] Start: 05-20-2022 Superficial Wound Culture Superficial Wound Culture [facility] Start: 05-20-2022 Referral to infectio us diseases physician [facility] Start: 05-20-2022 Referral to outdoor illuminating engineer [facility] Start: 05-20-2022 Referral to back sewer [facility] Start: 05-20-2022 Hospital admission [facility] Start: 05-19-2022 Aerobic microbial culture Superficial Wound Culture [facility] Start: 05-19-2022 Superficial Wound Culture Superficial Wound Culture [facility] Start: 05-08-2022 [facility] Start: 05-07-2022 Aerobic microbial culture Aerobic Culture [facility] Start: 05-07-2022 Anaerobic microbial culture Anaerobic Culture [facility] Start: 05-07-2022 End: 05-07-2022 [facility] Start: 05-06-2022 Referral to general surgeon [facility] Start: 05-06-2022 Referral to outdoor illuminating engineer [facility] Start: 05-06-2022 Referral to infectio us diseases physician [facility] Start: 05-05-2022 Referral to back sewer [facility] Start: 05-05-2022 Hospital admission [facility] Start: 05-05-2022 [facility] Start: 05-05-2022 Bacteria identified in Blood by Culture [facility] Start: 05-05-2022 Blood culture for bacteria, including anaerobic screen Blood Culture [facility] Start: 05-05-2022 Detachment at Right Foot, Partial 5th Ray, Open Approach Detachment at Right Foot, Partial 5th Ray, Open Approach [facility] Start: 03-22-2022 DEPRESSION ASSESSMENT DEPRESSION ASS ESSMENT [facility] Start: 02-20-2022 End: 04-22-2022 CBC W Auto Differential panel - Blood CBC + DIFF Lab Routine Anemia due to stage 3b chronic kidney disease (HCC) Hypothyroidism, unspecified type Expected: 02/20/2022, Expires: 04/22/2022 [facility] [facility] Work Phone: Comment on above: Expected: 02/20/2022 , Expires: 04/22/2022 Start: 02-20-2022 End: 04-22-2022 Comprehensive metabolic 2000 panel - Serum or Plasma COMP METABOLIC PANEL Lab Routine Anemia due to stage 3b chronic kidney disease (HCC) Hypothyroidism, unspecified type Expected: 02/20/2022, Expires: 04/22/2022 [facility] Work Phone: Comment on above: Expected: 02/20/2022 , Expires: 04/22/2022 Start: 11-20-2021 Influenza vaccination INFLUENZA (#1) [facility] Start: 10-11-2021 COVID-19 VACCINE (4 - Booster for Pfizer series) COVID-19 VACCINE (4 - Booster for Pfizer series) [facility] Start: 08-06-2021 COVID-19 VACCINE (4 - Booster for Pfizer series) COVID-19 VACCINE (4 - Booster for Pfizer series) [facility] Start: 03-22-2021 DEPRESSION ASSESSMENT DEPRESSION ASS ESSMENT [facility] Start: 08-01-2019 PROSTATE CANCER SCREENING DISCUSSION PROSTATE CANCER SCREENING DISCUSSION [facility] Start: 2014 SHINGRIX VACCINE (1 of 2) SHINGRIX VACCINE (1 of 2) [facility] Start: 2009 COLOGUARD (FIT-DNA) COLOGUARD (FIT-D NA) [facility] Start: 2009 Colonoscopy COLONOSCOPY [facility] Start: 2009 COLORECTAL CANCER SCREENING COLORECTAL CANCER SCREENING [facility] Start: [address] COLONOGRAPHY [facility] Start: 2009 DIABETES SCREEN DIABETES SCREEN [facility] Start: 2009 FECAL OCCULT BLOOD FECAL OCCULT BLOO D [facility] Start: 2009 SIGMOIDOSCOPY SIGMOIDOSCOPY [facility] Start: 08-01-1999 LIPID SCREEN LIPID SCREEN [facility] Start: 08-01-1983 Urine microalbumin profile DTAP,TDAP,TD (1 - Tdap) [facility] Start: 1982 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 ALEXANDRA DISEASE VISIT ANNUAL PCP TEAM CHRONIC DISEASE VISIT [facility] Start: 1982 HEPATITIS C SCREENING HEPATITIS C SC REENING [facility] Start: 1982 HIV SCREENING HIV SCREENING [facility] Start: 1976 Adult depression screening assessment DEPRESSION SCREENING [facility] Start: 1964 HEPATITIS B (1 of 3 - 3-dose series) HEPATITIS B (1 of 3 - 3-dose series) [facility] Start: 1964 Screening for malign ant neoplasm of colon [facility] C reactive protein [Mass/volume] in Serum or Plasma [facility] End: 10-08-2022 CBC W Auto Differential panel - Blood CBC + DIFF Lab Routine Stage 3b chronic kidney disease (HCC) Anemia due to stage 3b chronic kidney disease (HCC) Elevated serum immunoglobulin free light chains Every other week for 10 Occurrences starting 10/08/2021 until 10/08/2022 [facility] Work Phone: Comment on above: Every other week for 10 Occurrences starting 10/08/2021 until 10/08/2022 End: 10-08-2022 Comprehensive metabolic 2000 panel - Serum or Plasma COMP METABOLIC PANEL Lab Routine Stage 3b chronic kidney disease (HCC) Anemia due to stage 3b chronic kidney disease (HCC) Elevated serum immunoglobulin free light chains Every other week for 10 Occurrences starting 10/08/2021 until 10/08/2022 [facility] Work Phone: Comment on above: Every other week for 10 Occurrences starting 10/08/2021 until 10/08/2022 Patient Education [facility] Work Phone: Patient referral [facility] Work Phone: [facility] Immunizations Immunization Date Immunization Notes Care Provider Fa yeni 06-11-2021 COVID-19 original vaccine, age 12+ yr, monovalent (PFIZER-BIONTECH - PURPLE TOP) Conrad Rojas MD Work Phone: [facility] 06-11-2021 COVID-19 vaccine, ag e 12+ yr (PFIZER-BIONTECH - RINCON TOP) Conrad Rojas MD Work Phone: [facility] 06-11-2021 SARS-CoV-2 mRNA ([id number]) vaccine Ashutosh BULL [facility] Comment on above: Result Comment: 2023: [id number] 07-29-2020 COVID-19 vaccine, ag e 12+ yr (PFIZER-BIONTECH - PURPLE TOP) Conrad Rojas MD Work Phone: [facility] 07-08-2020 COVID-19 vaccine, ag e 12+ yr (PFIZER-BIONTECH - PURPLE TOP) Conrad Rojas MD Work Phone: [facility] Payers Date Payer Category Payer Self-pay [id number] 2022 Medicaid [id number] 2022 Medicare [id number] 2022 Medicare [id number] 2020 Medicaid [employer] [employer] [id number] 2020-Present [phone] [address] [place] [address] Medicaid [id number] 2020 Medicaid [id number] [id number] [id number] 1964 Unknown [id number] 2.16.840.1.081206.3.579.2.593 1964 Unknown [id number] 2.16.840.1.530196.3.579.2.593 1964 Unknown [id number] 2.16.840.1.462972.3.579.2.593 1964 Unknown [id number] 2.16.840.1.542589.3.579.2.593 1964 Unknown [id number] 2.16.840.1.104448.3.579.2.593 1964 Unknown [id number] 2.16.840.1.686826.3.579.2.593 1964 Unknown [id number] 2.16.840.1.389483.3.579.2.593 1964 Unknown [id number] 2.16.840.1.578669.3.579.2.593 1964 Unknown [id number] 2.16.840.1.612486.3.579.2.593 1964 Unknown [id number] 2.16.840.1.706622.3.579.2.727 1964 Unknown [id number] 2.16.840.1.695735.3.579.2.1259 1964 Unknown [id number] 2.16.840.1.351164.3.579.2.1259 1964 Unknown [id number] 2.16.840.1.612408.3.579.2.1258 1964 Unknown [id number] 2.16.840.1.412674.3.579.2.1258 1964 Unknown [id number] 2.16.840.1.263603.3.579.2.1258 1964 Unknown [id number] 2.16.840.1.160079.3.579.2.1258 1964 Unknown [id number] 2.16.840.1.859264.3.579.2.1259 1959 Unknown [id number] 2.16.840.1.508549.19 Medicaid [id number] 2.16.840.1.643328.19 Unknown [id number] 2.16.840.1.734880.3.579.2.531 Unknown [id number] 2.16.840.1.017553.3.579.2.531 Unknown [id number] 2.16.840.1.899839.3.579.2.531 Unknown [id number] 2.16.840.1.731003.3.579.2.531 Unknown [id number] 2.16.840.1.371621.3.579.2.531 Unknown [id number] 2.16.840.1.320201.3.579.2.531 Unknown [id number] 2.16.840.1.019671.3.579.2.531 Unknown [id number] 2.16.840.1.414373.3.579.2.531 Social History Date Type Detail Facility Unknown if ever smoked [facility] Start: 12-15-2023 End: 09-25-2024 Sex Assigned At [facility] Start: 10-01-2021 End: 08-12-2022 Tobacco smoking status GAIS Never smoked tobacco [facility] Start: 10-01-2021 End: 08-12-2022 Tobacco use and exposure Smokeless tobacco non-user [facility] Start: 10-01-2021 End: 04-16-2022 Alcohol intake Ex-drinker (finding) [facility] Start: 1965 Sex Assigned At Not on file C [facility] Start: 09-22-2021 End: 02-18-2022 Exposure to SARS-CoV-2 (event) Not sure [facility] Start: 1965 Sex Assigned At Male F [facility] History of tobacco use Passive smoker [facility] Start: 05-05-2022 End: 06-12-2022 Tobacco smoking status NHIS Ex-smoker (finding) [facility] Tobacco smoking status Never [facility] Start: 12-15-2023 End: 09-25-2024 Alcoholic beverage intake Not Asked [facility] Start: 12-15-2023 End: 09-25-2024 History of Social function [facility] Start: 06-09-2023 Alcohol Comment caffeine intak e:1-2 cups per day soda/pop [facility] Start: 08-10-2024 Sex Male (finding) [facility] Medical Equipment Procedure Code Equipment Code Equipment Origin al Text Equipment Identifier Dates Insertion, catheter, dialysis, peritoneal, laparoscopic Peritoneal dialysis catheter, chronic ()[id number] FDA Start: 05-28-2022 Goals Date Patient Goal Desired Activity /State Functional Status Date Assessment Result Facility 09-16-2023 Functional Status N/A [facility] [place] 06-15-2022 Functional status Patient at Baseline [facility] Work Phone: 06-11-2022 Functional status Patient at Baseline [facility] Work Phone: 05-25-2022 Functional status Patient at Baseline [facility] Work Phone: 05-20-2022 Functional status Patient at Baseline [facility] Work Phone: 05-08-2022 Functional status Patient at Baseline [facility] Work Phone: 05-05-2022 Functional status Patient at Baseline [facility] Work Phone: Mental Status Date Assessment Result Facility 06-15-2022 Cognitive function Cognitive Sta tus Patient at Baseline [facility] Work Phone: 06-11-2022 Cognitive function Cognitive Sta tus Patient at Baseline [facility] Work Phone: 05-25-2022 Cognitive function Cognitive Sta tus Patient at Baseline [facility] Work Phone: 05-20-2022 Cognitive function Cognitive Sta tus Patient at Baseline [facility] Work Phone: 05-08-2022 Cognitive function Cognitive Sta tus Patient at Baseline [facility] Work Phone: 05-05-2022 Cognitive function Cognitive Sta tus Patient at Baseline [facility] Work Phone: Clinical Notes 06-03-2021 to 10-31-2024 Telephone Encounter - [facility] - 10/09/2024 2:44 PM EDTTelephone Encounter - [facility] 10/09/2024 2:44 PM Nemo Corado DPM - 09/25/2024 1:15 PM EDT Note Date & Type Note Facility 10-31-2024 Note Cardiothoracic Surge ry Outpatient Consultation Note 11/01/2024 Reason For Visit Chief Complaint Patient presents with Consult Referred by Dr Sosa Referring Provider: No ref. provider found History Of Present Illness Gopal aYtes is a 59 y.o. male presenting for [...] Diagnosis Plan 1. Coronary artery disease involving [place] coronary artery of [place] heart without angina pectoris 2. Type 2 diabetes mellitus with diabetic neuropathy, without long-term current use of insulin ([facility]) 3. End-stage renal disease ([facility]) 4. Multiple nodules of lung Plan : -Patient seen and evaluated by Cardiothoracic Team. Dr. Otis Subramanian personally examined the patient and reviewed The Cardiac Catherization, Echocardiogram, CXR, and Other Diagnostic Testing. Findings discussed with repair armature winder and patient. Explained current disease process and [...] disease (CKD), Anxiety, CHF (congestive heart failure) ([facility]), Chronic fatigue syndrome, Chronic sinusitis, Coronary artery disease, Diabetic foot ulcers ([facility]), Diabetic neuropathy ([facility]), ED (erectile dysfunction), ESRD (end stage renal disease) ([facility]) (06/17/2022), GERD (gastroesophageal reflux disease), Heart valve disease, History of pleural effusion, History of tobacco use, Hyperlipidemia, Hypertension, Hypothyroidism, Myocardial infarction ([facility]), Osteomyelitis ([facility]), Panic attack, Pericardial effusion, Proteinuria, Pulmonary nodules, PVD (peripheral vascular disease), Secondary hyperparathyroidism of renal origin, Swelling of both lower extremities, Type 2 diabetes mellitus (CMS/HCC), and Vitamin D deficiency. Surgical History He [...] Palpations: Abdomen i (more content not included)... [facility] 10-31-2024 Note This report has been cancelled. [facility] 10-20-2024 Note I called the [...] forward with transplant. The pt verbalized understanding. [facility] 10-19-2024 Note Patient: Gopal jean-baptiste Procedure Information Date/Time: 10/19/24 1230 Procedures: Coronary angiography - Renal TX - Does PD dialysis Right heart cath Location: [facility] / [facility] (Cath) Providers: Casimiro Sosa MD Clinical information reviewed: Allergies Meds Physical Exam Airway Mallampati: III Cardiovascular Rhythm: regular Rate: normal Dental Pulmonary Breath sounds clear to auscultation Neurological Abdominal Anesthesia Plan ASA 3 other (Moderate Sedation) Anesthetic plan and risks discussed with patient. Use of blood products discussed with patient who consented to blood products. Additional Equipment Requests [facility] 10-09-2024 Telephone encounter Note Pt likes his DM shoes and is keeping them. [facility] 10-09-2024 Miscellaneous Notes Pt likes his DM shoes and is keeping them. documented in this encounter [facility] 10-09-2024 Note Spoke with patient h e verbalized understanding and confirmed date/time of procedure. He will have lab work done 10/16/24 at [facility]. All questions were answered. Written instructions and lab orders mailed to patient. [facility] 09-25-2024 History of Present illness Narrative Images from the original note were not included. Subjective Patient ID: Gopal Yates Jr. is a 59 y.o. 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 Patient received [address] Friedman shoerinn and 1 pair Custom inserts. 12W. BS [...] Leann Corado DPM documented in this encounter [facility] 09-20-2024 Note Received referral fo r patient to have an evaluation for possible transplant. Patient is an established patient with Dr. Sosa who was seen 06/21/24, at that time physician mentioned a stress would be needed. Patient scheduled for testing, pending results a follow up appointment will be made. [facility] 09-06-2024 History of Present illness [...] the callous site. documented in this encounter [facility] 09-06-2024 Note Patient Infection Ri sk NOTE: [...] during sex Leland Rangel MD Infectious diseases [facility] 08-30-2024 Note I saw the [...] and patient financial responsibility forms they signed [facility] 08-30-2024 Note Pre-Transplant Evalu ation Nephrology Consult Chief Complaint Patient presents with Kidney Eval PCP: Douglas Juárez MD Txp Referring: Cristobal Butts Preferred Pharmacy: [address] [id number] Organ: Kidney Subjective Visit Vitals BP 161/85 [...] Dose Status aspirin 81 mg EC tablet [id number] Yes Take 1 tablet every day by oral route. Historical ProviderMD Active calcium carbonate (Tums) 200 mg calcium (500 mg) chewable tablet [id number] Yes Chew 1 tablet three times daily. Historical ProviderMD Active carvedilol (Coreg) 25 mg tablet [id number] Yes TAKE 1 AND 1/2 TABLETS BY MOUTH TWICE A DAY Casimiro Sosa MD Active Patient not taking: Discontinued 08/30/24 0803 Discontinued 08/30/24 0803 guaiFENesin (Mucinex) 600 mg 12 hr tablet [id number] Yes Take 1,200 mg by mouth 1 (one) time each day. Do not crush, chew, or split. Historical ProviderMD Active hydrALAZINE (Apresoline) 50 mg tablet [id number] Yes TAKE 1 TABLET (50 MG) BY MOUTH IN THE MORNING, AFTERNOON, AND AT BEDTIME. Paola Zhang CNP Active hydrOXYzine HCL (Atarax) 25 mg tablet [id number] Yes Take 25 mg by mouth 1 (one) time. Historical ProviderMD Active insulin aspart (NovoLOG) 100 unit/mL (3 mL) pen [id number] Yes INJECT PER SCALEIF SUGAR IS <140 = 4U, 140-200 = 8U, OVER 200 12U (35 DAY SUPPLY) Historical ProviderMD Active insulin glargine (Lantus) 100 unit/mL (3 mL) pen [id number] Yes INJECT 16 UNITS SUB Q DAILY (83 DAY SUPPLY) Historical ProviderMD Active isosorbide dinitrate (Isordil) 10 mg tablet [id number] Yes TAKE 1 TABLET (10 MG) BY MOUTH IN THE MORNING, AT NOON, AND AT BEDTIME. Casimiro Sosa MD Active levothyroxine (Synthroid, Levoxyl) 100 mcg tablet [id number] Yes Take 1 tablet by mouth in the morning. Historical ProviderMD Active liothyronine (Cytomel) 5 mcg tablet [id number] Yes Take 2 tablets by mouth in the morning. Historical ProviderMD Active magnesium oxide (Mag-Ox) 400 mg (241.3 mg magnesium) tablet [id number] Yes Take 1 tablet by mouth in the morning. Historical ProviderMD Active montelukast (Singulair) 10 mg tablet [id number] Yes Take 1 tablet by mouth in the morning. Historical ProviderMD Active Nephro-Jose 0.8 mg tablet [id number] Yes Take 1 tablet by mouth in the morning. Historical ProviderMD Active NIFEdipine XL (Procardia XL) 30 mg 24 hr tablet [id number] Yes Take 1 tablet by mouth in the morning. Historical ProviderMD Active omeprazole (PriLOSEC) [address] capsule [id number] Yes Take 1 capsule by mouth in the morning and at bedtime. Historical ProviderMD Active potassium chloride CR (Klor-Con M20) 20 mEq ER tablet [id number] Yes Take 20 mEq by mouth in the morning. Historical ProviderMD Active pravastatin (Pravachol) 20 mg tablet [id number] Yes Take 1 tablet (20 mg) by mouth in the morning. Casimiro Sosa MD Active sevelamer carbonate (Renvela) 800 mg tablet [id number] Yes TAKE ONE TABLET BY MOUTH THREE TIMES A DAY WITH MEALS Historical ProviderMD Active Immunization History Administered Date(s) Administered Pfizer SARS-CoV-2 Vaccination 07/08/2020, 07/29/2020, 06/11/2021, 06/11/2021 Unspecified Sars-Cov-2 Vaccination 07/08/2020, 07/29/2020 Patient Active Problem List Diagnosis Edema of lower extremity Hypertensive disorder Left ventricular systolic dysfunction Mitral valve regurgitation Pericardial effusion Coronary artery disease involving [place] coronary artery of [place] heart without angina pectoris CKD (chronic kidney disease) Anemia Anemia due to stage 3b chronic kidney disease (CMS/HCC) Abscess of right foot MARTHA (acute kidney injury) Fever History of fever Metabolic acidosis Osteomyelitis (CMS/HCC) Diabetes mellitus with diabetic neuropathy (CMS/HCC) Anxiety Chronic fatigue syndrome Diabetic neuropathy (CMS/HCC) Diastolic dysfunction End-stage renal disease (CMS/HCC) Erectile dysfunction Chronic GERD History of WI (myocardial infarction) History of osteomyelitis Hypercholesterolemia Hyperparathyroidism Hypothyroidism Iron deficiency anemia Multiple nodules of lung Occult blood in stools Peritoneal dialysis status Vitamin D deficiency Type 2 diabetes mellitus (CMS/HCC) Diabetic foot ulcers (CMS/HCC) Chronic foot ulcer (CMS/HCC) Heart valve disease CHF (congestive heart failure) (CMS/HCC) Myocardial infarction (CMS/HCC) History of pleural effusion Melo (more content not included)... [facility] 08-30-2024 Note Transplant Nutrition Assessment Name: Gopal Yates : 1965 Assessment date: 08/30/2024 PMH: Anemia, Anxiety, CHF, CAD, DFU, ED, ESRD , GERD, HLD, HTN, hypothyroid, [place], PVD, hyperparathyroid, DM, vitamin D deficiency Dialysis [...] doctor and ENT. 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 Context: Denies weight changes. No food allergies [...] guidelines discussed with patient. Chari Coleman RD [facility] 08-30-2024 Note Coordinator met with patient for initial transplant evaluation appointment in Transplant clinic today. Explained transplant process and consents with patient. Answered patient questions. Social work, finance and sap analyst in to see patient. Dr. Guadalupe in for H&P and transplant plan. Dr. Rodrigues in for surgical evaluation. Coordinator provided copy of plan to patient and reviewed it with them. Patient aware further testing needed and to keep transplant team updated. Understanding verbalized by patient. [employer] provided verbal order for patient labs, EKG, CXR and CT scan today. Work-up Needed-Date of Eval Letter to be Mailed to patient and faxed to [employer] [facility] Dialysis Center. Dictionary Editor provided patient TE folder with education on various transplant consents, the workup process, surgery details, postop expectations, transplant statistics, and living donor information. Answered patient questions and verified understanding. [facility] 08-30-2024 Note Pre-Transplant Kidne y Evaluation Surgery Consultation PCP: Douglas Juárez MD Txp Referring: Cristobal Butts [facility] Pharmacy: [address] [id number] Organ: Kidney Subjective Visit Vitals BP 161/85 [...] Dose Status aspirin 81 mg EC tablet [id number] Yes Take 1 tablet every day by oral route. Historical ProviderMD Active calcium carbonate (Tums) 200 mg calcium (500 mg) chewable tablet [id number] Yes Chew 1 tablet three times daily. Historical ProviderMD Active carvedilol (Coreg) 25 mg tablet [id number] Yes TAKE 1 AND 1/2 TABLETS BY MOUTH TWICE A DAY Casimiro Sosa MD Active Patient not taking: Discontinued 08/30/24 0803 Discontinued 08/30/24 0803 guaiFENesin (Mucinex) 600 mg 12 hr tablet [id number] Yes Take 1,200 mg by mouth 1 (one) time each day. Do not crush, chew, or split. Historical ProviderMD Active hydrALAZINE (Apresoline) 50 mg tablet [id number] Yes TAKE 1 TABLET (50 MG) BY MOUTH IN THE MORNING, AFTERNOON, AND AT BEDTIME. Paola Zhang CNP Active hydrOXYzine HCL (Atarax) 25 mg tablet [id number] Yes Take 25 mg by mouth 1 (one) time. Georgie Moore MD Active insulin aspart (NovoLOG) 100 unit/mL (3 mL) pen [id number] Yes INJECT PER SCALEIF SUGAR IS <140 = 4U, 140-200 = 8U, OVER 200 12U (35 DAY SUPPLY) Georgie Moore MD Active insulin glargine (Lantus) 100 unit/mL (3 mL) pen [id number] Yes INJECT 16 UNITS SUB Q DAILY (83 DAY SUPPLY) Georgie Moore MD Active isosorbide dinitrate (Isordil) 10 mg tablet [id number] Yes TAKE 1 TABLET (10 MG) BY MOUTH IN THE MORNING, AT NOON, AND AT BEDTIME. Casimiro Sosa MD Active levothyroxine (Synthroid, Levoxyl) 100 mcg tablet [id number] Yes Take 1 tablet by mouth in the morning. Historical ProviderMD Active liothyronine (Cytomel) 5 mcg tablet [id number] Yes Take 2 tablets by mouth in the morning. Historical ProviderMD Active magnesium oxide (Mag-Ox) 400 mg (241.3 mg magnesium) tablet [id number] Yes Take 1 tablet by mouth in the morning. Historical ProviderMD Active montelukast (Singulair) 10 mg tablet [id number] Yes Take 1 tablet by mouth in the morning. Historical ProviderMD Active Nephro-Jose 0.8 mg tablet [id number] Yes Take 1 tablet by mouth in the morning. Historical ProviderMD Active NIFEdipine XL (Procardia XL) 30 mg 24 hr tablet [id number] Yes Take 1 tablet by mouth in the morning. Historical ProviderMD Active omeprazole (PriLOSEC) [address] capsule [id number] Yes Take 1 capsule by mouth in the morning and at bedtime. Historical ProviderMD Active potassium chloride CR (Klor-Con M20) 20 mEq ER tablet [id number] Yes Take 20 mEq by mouth in the morning. Historical ProviderMD Active pravastatin (Pravachol) 20 mg tablet [id number] Yes Take 1 tablet (20 mg) by mouth in the morning. Casimiro Sosa MD Active sevelamer carbonate (Renvela) 800 mg tablet [id number] Yes TAKE ONE TABLET BY MOUTH THREE TIMES A DAY WITH MEALS Historical ProviderMD Active Immunization History Administered Date(s) Administered Pfizer SARS-CoV-2 Vaccination 07/08/2020, 07/29/2020, 06/11/2021, 06/11/2021 Unspecified Sars-Cov-2 Vaccination 07/08/2020, 07/29/2020 Diagnoses: 1. Type 2 diabetes mellitus with ESRD (end-stage renal disease) ([facility]) 2. Encounter for other preprocedural examination 3. End stage renal disease ([facility]) 4. 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 not on chronic dialysis, with long-term current use of insulin ([facility]) Problems: Problem List[2] Family History[3] Social History[4] Medical History[5] Surgical History[6] Dialysis History Start End Type Center Comments 06/17/2022 Peritoneal [facility] everyday Dialysis Center Information [facility] Address: [address] [place] [address], [address] [facility] [address] Travel Screening No screening recorded since 08/29/24 0000 Travel History Travel since 07/30/24 No documented travel since 07/30/24 HPI The patient is a 59 year old male with ESRD likely secondary to Type 2 diabetes mellitus and cardiorenal syndrome. He began dialysis on 06/17/2022 and currently dialyzes at home daily using peritoneal dialysis and following with [facility] [place]. He denies any issues with clotting or infection of his dialysis access. His PD catheter is in the right middle quadrant. His outdoor illuminating engineer is Dr. Hernandes (more content not included)... [facility] 08-30-2024 Note Identifying Informat ion Name: Gopal Yates : 1965 Assessment date: 08/30/2024 Transplant type: Kidney Transplant Evaluation - 08/30/2024 Primary language: Wallisian Baptist/spirituality: Mu-Ism People present at assessment: spouse Eneida Do you have any orthodox, ethical or personal objections to accepting blood products, surgery and/or transplant? No Citizenship Where were you born? In the [place] in [facility] Where do you currently live or are staying? [facility] Is this greater than 3-4 hours from [facility]? No. Family Background and Supportive Relationships Mother: COD: Alzheimer Father: COD: heart issues, he was in the hospital. Siblings: none Children: Biological Number of children, living or (UNOS question): 2 Names, age, health status, relationship, address: Adrian, 29, daughter, healthy, [place] with us. Charlene, 27, daughter, colitis and Chron's, [place], [place]- about an hour from patient. Marital/relationship status: for 31 years Household composition: Patient, , and daughter Adrian. Are there any current or past significant life changes or traumatic events? None Support / Caregiver Plans Who will be your primary caregiver? 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 Who will be your secondary caregiver(s)? 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 yes Are you receiving assistance through [employer] [facility] [facility] [place] Program: No Medication Coverage [...] 06/17/2022 Peritoneal [facility] everyday Dialysis Center Information [facility]. Address: [address] [place] [address], [address] [facility] [address] Dialysis Schedule: PD, 10.5, yellow, green and purple. Treatment Compliance / Adherence How do you manage your medications now? Memory and Other from the bottle. Do you have any difficulties in getting or taking your medications (more content not included)... [facility] 08-10-2024 Hospital Discharge instructions Ambulatory OrdersReferral to ENT Time Frame: 08/10/24, Location: [facility] Work Phone: 08-02-2024 History of Present illness Narrative Images from the original note were not included. Subjective Patient ID: Gopal Yates Jr. is a 59 y.o. male who presents for Shoe measure ( Gopal Yatse Jr. is a 59 y.o. male who [...] Measurements obtained in the weight-bearing position utilizing CO2Stats device. Patient education and counseling relative to [...] Leann Corado DPM documented in this encounter [facility] 07-18-2024 History of Present illness Narrative Images [...] Leann Corado DPM documented in this encounter [facility] 06-21-2024 Note [place] Cardiology - [facility] Subjective Gopal Yates is a [...] regurgitation Pericardial effusion Coronary artery disease involving [place] coronary artery of [place] heart without angina pectoris CKD (chronic kidney disease) Anemia Anemia due to stage 3b chronic kidney disease (CMS/HCC) Abscess of right foot MARTHA (acute kidney injury) Fever History of fever Metabolic acidosis Osteomyelitis ([facility]/HCC) Other acute postprocedural pain Receiving intravenous antibiotic treatment at home Recent surgical procedure on lower extremity Subjective fever Surgical wound present Diabetes mellitus with diabetic neuropathy ([facility]/HCC) Anxiety Chronic fatigue syndrome Diabetic neuropathy ([facility]/HCC) Diastolic dysfunction End-stage renal disease ([facility]/HCC) Erectile dysfunction Chronic GERD History of WI (myocardial infarction) History of osteomyelitis Hypercholesterolemia Hyperparathyroidism Hypothyroidism Iron deficiency anemia Multiple nodules of lung Occult blood in stools Peritoneal dialysis status Vitamin D deficiency Diabetes ([facility]/HCC) Type 2 diabetes mellitus with foot ulcer (CODE) ([facility]) Chronic foot ulcer ([facility]) Family History Problem Relation Name Age of [...] In May 2022 he was admitted to [facility] for osteomyelitis and had toe amputations. In [...] BEDTIME. (Patient michaela (more content not included)... [facility] 03-28-2024 History of Present illness [...] the callous site. documented in this encounter [facility] 12-22-2023 Note [place] Cardiology - [facility] Subjective Gopal Yates is a 58 y.o. year old male patient being seen for 3 mo follow up CAD, mitral valve regurgitation, and LVSD. Lipid panel was drawn yesterday. Zetia was stopped at last apt in August 2023 by Augustina Christiansen CNP. He states his outdoor illuminating engineer wants him to increase nifedipine to 60mg [...] regurgitation Pericardial effusion Coronary artery disease involving [place] coronary artery of [place] heart without angina pectoris CKD (chronic kidney disease) Anemia Anemia due to stage 3b chronic kidney disease (CMS/HCC) Abscess of right foot MARTHA (acute kidney injury) ([facility]/HCC) Fever History of fever Metabolic acidosis Osteomyelitis (CMS/HCC) Other acute postprocedural pain Receiving intravenous antibiotic treatment at home Recent surgical procedure on lower extremity Subjective fever Surgical wound present Diabetes mellitus with diabetic neuropathy ([facility]/HCC) Anxiety Chronic fatigue syndrome Diabetic neuropathy ([facility]/HCC) Diastolic dysfunction End-stage renal disease ([facility]) Erectile dysfunction Chronic GERD History of WI (myocardial infarction) History of osteomyelitis Hypercholesterolemia Hyperparathyroidism ([facility]/HCC) Hypothyroidism Iron deficiency anemia Multiple nodules of lung Occult blood in stools Peritoneal dialysis status ([facility]) Vitamin D deficiency Diabetes ([facility]) Type 2 diabetes mellitus with foot ulcer (CODE) ([facility]) Family History Problem Relation Name Age of [...] In May 2022 he was admitted to [facility] for osteomyelitis and had toe amputations. In [...] is no claudication. He reports that his outdoor illuminating engineer wanted to increase nifedipine dosage due to [...] Current Outpatient Med (more content not included)... [facility] 12-15-2023 History of Present illness [...] the callous site. documented in this encounter [facility] 09-16-2023 Note General Surgery Offi ce/Clinic Note [...] yo male with h/o htn, CAD, previous WI, hyperlipidemia, DMII, ESRD, on peritoneal dialysis, hypothyroidism, diabetic neuropathy, referred for anemia and positive fecal occult blood; last colonoscopy 2018 with removal of sigmoid hyperplastic polyp; abd operations significant for insertion of peritoneal dialysis catheter; patient on baby asa daily; patient has had several year h/o anemia, managed by his [employer]; had admission to [facility], no upper endoscopy; denies change in bms [...] test positive Gastroesophageal reflux disease History of WI (myocardial infarction) History of osteomyelitis Hypercholesterolemia Hyperlipidemia Hyperparathyroidism Hypothyroidism Iron deficiency anemia Left ventricular systolic dysfunction Mitral valve regurgitation Multiple nodules of lung Peritoneal dialysis status Positive occult stool blood test Vitamin D de (more content not included)... [facility] Comment on above: Result Comment: Elec tronically Signed By: ML BATISTA, Ashutosh Love\Date and Time Signed: 09/16/23 16:05 EDT 06-11-2022 History and physi dandre note Note Date/Time June 11, 2022 6:58pm [facility] [address] [place] [address] Hospitalist H&P Signed Patient: Gopal Yates Jr MR#: [id number] : 1965 Acct:[id number] Age/Sex: 56 / M Adm Date: 3 Loc: ER Room: Type: [facility] ER Attending Dr: Copies to: MD Gopal [...] with his assistance. Has been following with back sewer Dr. Griggs, took culture few days ago [...] % (Auto) 3.2 % (.) 06/11/22 16:06 [place] % (Auto) 7.2 % (.) 06/11/22 16:06 Eos % (Auto) 2.0 % (.) 06/11/22 16:06 Baso % (Auto) 0.5 % (.) 06/11/22 16:06 Nucleat RBC Rel Count 0.0 /100 WBC (0-0.5) 06/11/22 16:06 Neut # (Auto) 8.9 x10E3/uL (1.8-7.7) H 06/11/22 16:06 Lymph # (Auto) 0.3 x10E3/uL (1.00-4.8) L 06/11/22 16:06 [place] # (Auto) 0.7 x10E3/uL (0.0-0.8) 06/11/22 16:06 [...] pH 5.5 (5.0-9.0) 06/11/22 16:28 Ur Specific [place] 1.014 (1.001-1.030) 06/11/22 16:28 Urine Protein 300 [...] <Electronically signed by Caleb Farrar MD> 06/11/221940 [facility] Work Phone: 1(523) 845-524903-20-2023 Miscellaneous Notes* Telephone Encounter - Liset Xiong - 06/08/2022 11:08 AM EDT All appointemnts cxed * Telephone Encounter - Krissy Mirza RN - 06/08/2022 11:03 AM EDT YENY/PSS: Received call from pt's stating pt will be getting labs and injections at dialysis from now on so they will no longer need to be seen at our office and all appts can be cancelled. Krissy Mirza RN [facility] Progress note Author Yvonne Barboza [facility] May 25, 2022 11:28am Note Date/Time May 25, 2022 10:3 6am [facility] [address] [place] [address] Nephrology Progress Note Signed Patient: Gopal Yates Jr MR#: [id number] : 1965 Acct:[id number] Age/Sex: 56 / M Adm Date: 3 Loc: 3T Room: [address] [place] [address] Type: ADM IN Attending Dr: Scotty Kahn [...] been following with hematology clinic here in [facility] for CAROL injection. Patient missed her last [...] visible mass Skin: No rashes or bruises [employer] ARCHITECT: Awake,Alert, 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 Musculoskeletal: No joint [...] 2 Mg Tablet) 2 mg PO DAILY [facility] Stop: 05/21/23 08:59 Last Admin: 05/25/22 08:30 Dose: 2 mg Carvedilol (Carvedilol 12.5 Mg Tablet) 37.5 mg PO BID.WITH.MEALS [facility] Stop: 05/20/23 16:59 Last Admin: 05/25/22 08:30 Dose: 37.5 mg Cyproheptadine HCl (Cyproheptadine 4 Mg Tablet) 4 mg PO BID [facility] Stop: 05/23/23 20:59 Last Admin: 05/25/22 08:30 Dose: 4 mg Ezetimibe (Ezetimibe 10 Mg Tablet) 10 mg PO DAILY [facility] Stop: 05/21/23 08:59 Last Admin: 05/25/22 08:30 Dose: 10 mg Hydralazine HCl (Hydralazine 50 Mg Tablet) 50 mg PO TID [facility] Stop: 05/20/23 13:59 Last Admin: 05/25/22 08:30 Dose: 50 mg Piperacillin Sod/Tazobactam Sod (Zosyn 2.25gm) 2.25 gm in 100 mls @ 200 mls/hr IV Q6H [facility] Last Admin: 05/25/22 05:05 Dose: 200 mls/hr Insulin Glargine (Insulin Glargine 300 Units/3 Ml Insuln.Pen) 16 units SUBCUT QAM [facility] Stop: 05/21/23 08:59 Last Admin: 05/25/22 08:31 Dose: 16 units Isosorbide Dinitrate (Isosorbide Dinitrate 10 Mg Tablet) 10 mg PO TID [facility] Stop: 05/20/23 13:59 Last Admin: 05/25/22 08:30 Dose: 10 mg Levothyroxine Sodium (Levothyroxine 100 Mcg Tablet) 100 mcg PO DAILY@0630 [facility] Stop: 05/21/23 06:29 Last Admin: 05/25/22 05:34 Dose: Not Given Liothyronine Sodium (Liothyronine 5 Mcg Tablet) 10 mcg PO DAILY [facility] Stop: 05/21/23 08:59 Last Admin: 05/25/22 08:31 Dose: 10 mcg Multivitamins (Multivitamin 1 Tab Tablet) 1 tab PO DAILY [facility] Stop: 05/21/23 08:59 Last Admin: 05/25/22 08:31 Dose: 1 tab Nifedipine (Nifedipine Er.24hr 30 Mg Tab.Er.24) 30 mg PO BID [facility] Stop: 05/20/23 20:59 Last Admin: 05/25/22 08:30 [...] (1,000 Units) Tablet) 50 mcg PO DAILY [facility] Stop: 05/21/23 08:59 Last Admin: 05/25/22 08:30 [...] been following with hematology clinic here in [facility] for CAROL injection . Patient missed the last appointment. Patient received 1 unit of RBC May 21. Patient also was given 1 dose of Tmvxpp48,000 units May 21 . No need for [...] following Documented By: Yvonne Barboza MD 05/25/22 1037 Signed By: <Electronically signed by Yvonne Barboza MD> 05/25/22 [facility] [facility] Work Phone: 1(770) 170-483703-06-2023 Progress note Author Ashutosh Thomas [facility] May 25, 2022 11:21am Note Date/Time May 25, 2022 11:2 2am [facility] [address] [place] [address] Infect. Disease Progress Note Signed Patient: Gopal Yates Jr MR#: [id number] : 1965 Acct:[id number] Age/Sex: 56 / M Adm Date: 3 Loc: 3T Room: [address] [place] [address] Type: ADM IN Attending Dr: Scotty Kahn [...] 2 Mg Tablet) 2 mg PO DAILY [facility] Stop: 05/21/23 08:59 Last Admin: 05/25/22 08:30 Dose: 2 mg Carvedilol (Carvedilol 12.5 Mg Tablet) 37.5 mg PO BID.WITH.MEALS [facility] Stop: 05/20/23 16:59 Last Admin: 05/25/22 08:30 Dose: 37.5 mg Cyproheptadine HCl (Cyproheptadine 4 Mg Tablet) 4 mg PO BID [facility] Stop: 05/23/23 20:59 Last Admin: 05/25/22 08:30 Dose: 4 mg Ezetimibe (Ezetimibe 10 Mg Tablet) 10 mg PO DAILY [facility] Stop: 05/21/23 08:59 Last Admin: 05/25/22 08:30 Dose: 10 mg Hydralazine HCl (Hydralazine 50 Mg Tablet) 50 mg PO TID [facility] Stop: 05/20/23 13:59 Last Admin: 05/25/22 08:30 Dose: 50 mg Piperacillin Sod/Tazobactam Sod (Zosyn 2.25gm) 2.25 gm in 100 mls @ 200 mls/hr IV Q6H [facility] Last Admin: 05/25/22 11:06 Dose: 200 mls/hr Insulin Glargine (Insulin Glargine 300 Units/3 Ml Insuln.Pen) 16 units SUBCUT QAM [facility] Stop: 05/21/23 08:59 Last Admin: 05/25/22 08:31 Dose: 16 units Isosorbide Dinitrate (Isosorbide Dinitrate 10 Mg Tablet) 10 mg PO TID [facility] Stop: 05/20/23 13:59 Last Admin: 05/25/22 08:30 Dose: 10 mg Levothyroxine Sodium (Levothyroxine 100 Mcg Tablet) 100 mcg PO DAILY@0630 [facility] Stop: 05/21/23 06:29 Last Admin: 05/25/22 05:34 Dose: Not Given Liothyronine Sodium (Liothyronine 5 Mcg Tablet) 10 mcg PO DAILY [facility] Stop: 05/21/23 08:59 Last Admin: 05/25/22 08:31 Dose: 10 mcg Multivitamins (Multivitamin 1 Tab Tablet) 1 tab PO DAILY [facility] Stop: 05/21/23 08:59 Last Admin: 05/25/22 08:31 Dose: 1 tab Nifedipine (Nifedipine Er.24hr 30 Mg Tab.Er.24) 30 mg PO BID [facility] Stop: 05/20/23 20:59 Last Admin: 05/25/22 08:30 Dose: 30 mg Ondansetron HCl (Ondansetron 4 Mg/2 Ml Vial) 4 mg IV-PUSH Q8H PRN PRN Reason: Nausea And Vomiting Stop: 05/20/23 13:39 Oxycodone HCl (Oxycodone Ir 5 Mg Tablet) 5 mg PO Q6H PRN PRN Reason: Pain Scale 4 - 7 Pantoprazole Sodium (Pantoprazole 40 Mg Tablet.Dr) 40 mg PO BID [facility] Stop: 05/20/23 20:59 Last Admin: 05/25/22 08:31 Dose: 40 mg Potassium Chloride (Potassium Chloride Er 20 Meq Tab.Er.Prt) 40 meq PO DAILY PRN PRN Reason: Hypokalemia Stop: 05/20/23 13:39 Sodium Bicarbonate (Sodium Bicarbonate 650 Mg Tablet) 1,300 mg PO BID [facility] Stop: 05/20/23 20:59 Last Admin: 05/25/22 08:30 [...] signed by MD Ashutosh Thomas> 05/25/22 [facility] [facility] Work Phone: 1([phone]) 645-862703-06-2023 Discharge summary Author Scotty Kahn [facility] May 25, 2022 5:23pm Note Date/Time May 25, 2022 10:3 0am [facility] [address] [place], [place] [id number] Discharge Summary Signed Patient: Gopal Yates Jr MR#: [id number] : 1965 Acct:[id number] Age/Sex: 56 / M Adm Date: 3 Loc: 3T Room: [address] [place] [address]: Scotty Kahn DO Copies to: [...] of CKD stage 5, CAD status post WI, HFpEF, HTN, HLD, insulin-dependent DM type II, hypothyroidism was sent to the emergency department by his back sewer due to worsening right lateral foot ulcer. [...] % (Auto) 75.9, Lymph % (Auto) 9.2, [place] % (Auto) 10.5, Eos % (Auto) 3.4, Baso % (Auto) 1.0, Nucleat RBC Rel Count 0.0, Neut # (Auto) 5.8, Lymph # (Auto) 0.7 L, [place] # (Auto) 0.8, Eos # (Auto) 0.3, [...] Patient Ordered By: Ashutosh Thomas Follow Up: [facility] Infusion Center [Outside] - 05/27/22 2:30 pm [...] <Electronically signed by DO NADIR Velez> 05/25/22 [address] Work Phone: 1(225) 901-467503-05-2023 Progress note Author Cristobal Butts [facility] May 24, 2022 12:26pm Note Date/Time May 24, 2022 12:2 6pm [facility] [address] [place] [address] Nephrology Progress Note Signed Patient: Gopal Yates Jr MR#: [id number] : 1965 Acct:[id number] Age/Sex: 56 / M Adm Date: 3 Loc: Room: [address] [place] [address] Type: ADM IN Attending Dr: Salvador Alonso [...] been following with hematology clinic here in [facility] for CAROL injection. Patient missed her last [...] 2 Mg Tablet) 2 mg PO DAILY [facility] Stop: 05/21/23 08:59 Last Admin: 05/24/22 08:56 Dose: 2 mg Carvedilol (Carvedilol 12.5 Mg Tablet) 37.5 mg PO BID.WITH.MEALS [facility] Stop: 05/20/23 16:59 Last Admin: 05/24/22 08:56 Dose: 37.5 mg Cyproheptadine HCl (Cyproheptadine 4 Mg Tablet) 4 mg PO BID [facility] Stop: 05/23/23 20:59 Last Admin: 05/24/22 08:55 Dose: 4 mg Ezetimibe (Ezetimibe 10 Mg Tablet) 10 mg PO DAILY [facility] Stop: 05/21/23 08:59 Last Admin: 05/24/22 08:56 Dose: 10 mg Hydralazine HCl (Hydralazine 50 Mg Tablet) 50 mg PO TID [facility] Stop: 05/20/23 13:59 Last Admin: 05/24/22 08:56 Dose: 50 mg Piperacillin Sod/Tazobactam Sod (Zosyn 2.25gm) 2.25 gm in 100 mls @ 200 mls/hr IV Q6H [facility] Last Admin: 05/24/22 11:49 Dose: 200 mls/hr Insulin Glargine (Insulin Glargine 300 Units/3 Ml Insuln.Pen) 16 units SUBCUT QAM [facility] Stop: 05/21/23 08:59 Last Admin: 05/24/22 08:56 Dose: 16 units Isosorbide Dinitrate (Isosorbide Dinitrate 10 Mg Tablet) 10 mg PO TID [facility] Stop: 05/20/23 13:59 Last Admin: 05/24/22 08:55 Dose: 10 mg Levothyroxine Sodium (Levothyroxine 100 Mcg Tablet) 100 mcg PO DAILY@0630 [facility] Stop: 05/21/23 06:29 Last Admin: 05/24/22 05:44 Dose: 100 mcg Liothyronine Sodium (Liothyronine 5 Mcg Tablet) 10 mcg PO DAILY [facility] Stop: 05/21/23 08:59 Last Admin: 05/24/22 08:56 Dose: 10 mcg Multivitamins (Multivitamin 1 Tab Tablet) 1 tab PO DAILY [facility] Stop: 05/21/23 08:59 Last Admin: 05/24/22 08:56 Dose: 1 tab Nifedipine (Nifedipine Er.24hr 30 Mg Tab.Er.24) 30 mg PO BID [facility] Stop: 05/20/23 20:59 Last Admin: 05/24/22 08:55 Dose: 30 mg Ondansetron HCl (Ondansetron 4 Mg/2 Ml Vial) 4 mg IV-PUSH Q8H PRN PRN Reason: Nausea And Vomiting Stop: 05/20/23 13:39 Oxycodone HCl (Oxycodone Ir 5 Mg Tablet) 5 mg PO Q6H PRN PRN Reason: Pain Scale 4 - 7 Pantoprazole Sodium (Pantoprazole 40 Mg Tablet.Dr) 40 mg PO BID [facility] Stop: 05/20/23 20:59 Last Admin: 05/24/22 08:56 [...] been following with hematology clinic here in [facility] for CAROL injection . Patient missed the last appointment. Patient received 1 unit of RBC May 21. Patient also was given 1 dose of Stxsqa48,000 units May 21 . Hemoglobin is 8 mg deciliter this morning. No need for RBC transfusion. Continue to monitor H&H (5) Osteomyelitis of right foot: Plan: Right foot MRI findings as as in [facility]. Patient currently covered by vancomycin and Zosyn IV. Status post amputation of the right fourth toe with I&D of right foot abscess with wound VAC placement during this admission. Podiatry service is following Documented By: Cristobal Butts MD 05/24/221224 Signed By: <Electronically signed by Cristobal Butts MD> 05/24/22 [facility] Work Phone: 1(796) 689-578503-05-2023 Progress note Author Salvador Alonso [facility] May 24, 2022 12:12pm Note Date/Time May 24, 2022 12:1 2pm [facility] [address] [place] [address] Hospitalist Progress Note Signed Patient: Gopal Yates Jr MR#: [id number] : 1965 Acct:[id number] Age/Sex: 56 / M Adm Date: 3 Loc: Room: [address] [place] [address] Type: ADM IN Attending Dr: Salvador Alonso [...] Tablet PO 05/20/23 13:59 50 mg TID [facility] Administration Piperacillin Sod/Tazobactam Sod 2.25 gm in 100 mls @ 200 mls/hr 05/21/22 11:30 05/24/22 11:49 Zosyn 2.25gm IV 200 mls/hr Q6H [facility] Administration Insulin Glargine 16 units 05/21/22 09:00 05/24/22 08:56 Insulin Glargine 300 Units/3 Ml Insuln.Pen SUBCUT 05/21/23 08:59 16 units QAM [facility] Administration Isosorbide Dinitrate 10 mg 05/20/22 14:00 05/24/22 08:55 Isosorbide Dinitrate 10 Mg Tablet PO 05/20/23 13:59 10 mg TID [facility] Administration Levothyroxine Sodium 100 mcg 05/21/22 06:30 05/24/22 05:44 Levothyroxine 100 Mcg Tablet PO 05/21/23 06:29 100 mcg DAILY@0630 [facility] Administration Liothyronine Sodium 10 mcg 05/21/22 09:00 05/24/22 08:56 Liothyronine 5 Mcg Tablet PO 05/21/23 08:59 10 mcg DAILY [facility] Administration Multivitamins 1 tab 05/21/22 09:00 05/24/22 08:56 Multivitamin 1 Tab Tablet PO 05/21/23 08:59 1 tab DAILY [facility] Administration Nifedipine 30 mg 05/20/22 21:00 05/24/22 08:55 Nifedipine Er.24hr 30 Mg Tab.Er.24 PO 05/20/23 20:59 30 mg BID [facility] Administration Ondansetron HCl 4 mg 05/20/22 13:40 [...] signed by Salvador Alonso MD> 05/24/22 [facility] Work Phone: 1(540) 305-670203-04-2023 Progress note Author Cristobal Butts [facility] May 23, 2022 1:42pm Note Date/Time May 23, 2022 1:40 pm [facility] [address] [place] [address] Nephrology Progress Note Signed Patient: Gopal Yates Jr MR#: [id number] : 1965 Acct:[id number] Age/Sex: 56 / M Adm Date: 3 Loc: Room: [address] [place] [address] Type: ADM IN Attending Dr: Salvador Alonso [...] been following with hematology clinic here in [facility] for CAROL injection. Patient missed her last [...] 05/23/22 11:27 05/23/22 11:27 05/23/22 11:27 05/23/22 11:05/23/22 11:28 Narrative: General: No [...] 2 Mg Tablet) 2 mg PO DAILY [facility] Stop: 05/21/23 08:59 Last Admin: 05/23/22 09:36 Dose: 2 mg Carvedilol (Carvedilol 12.5 Mg Tablet) 37.5 mg PO BID.WITH.MEALS [facility] Stop: 05/20/23 16:59 Last Admin: 05/23/22 09:35 Dose: 37.5 mg Cyproheptadine HCl (Cyproheptadine 4 Mg Tablet) 4 mg PO DAILY [facility] Stop: 05/21/23 08:59 Last Admin: 05/23/22 09:36 Dose: 4 mg Ezetimibe (Ezetimibe 10 Mg Tablet) 10 mg PO DAILY [facility] Stop: 05/21/23 08:59 Last Admin: 05/23/22 09:35 Dose: 10 mg Hydralazine HCl (Hydralazine 50 Mg Tablet) 50 mg PO TID [facility] Stop: 05/20/23 13:59 Last Admin: 05/23/22 09:36 Dose: 50 mg Piperacillin Sod/Tazobactam Sod (Zosyn 2.25gm) 2.25 gm in 100 mls @ 200 mls/hr IV Q6H [facility] Last Admin: 05/23/22 11:31 Dose: 200 mls/hr Insulin Glargine (Insulin Glargine 300 Units/3 Ml Insuln.Pen) 16 units SUBCUT QAM [facility] Stop: 05/21/23 08:59 Last Admin: 05/23/22 09:38 Dose: 16 units Isosorbide Dinitrate (Isosorbide Dinitrate 10 Mg Tablet) 10 mg PO TID [facility] Stop: 05/20/23 13:59 Last Admin: 05/23/22 09:37 Dose: 10 mg Levothyroxine Sodium (Levothyroxine 100 Mcg Tablet) 100 mcg PO DAILY@0630 [facility] Stop: 05/21/23 06:29 Last Admin: 05/23/22 05:34 Dose: 100 mcg Liothyronine Sodium (Liothyronine 5 Mcg Tablet) 10 mcg PO DAILY [facility] Stop: 05/21/23 08:59 Last Admin: 05/23/22 09:35 Dose: 10 mcg Multivitamins (Multivitamin 1 Tab Tablet) 1 tab PO DAILY [facility] Stop: 03/01/24 08:59 Last Admin: 05/23/22 09:36 Dose: 1 tab Nifedipine (Nifedipine Er.24hr 30 Mg Tab.Er.24) 30 mg PO BID [facility] Stop: 05/20/23 20:59 Last Admin: 05/23/22 09:36 Dose: 30 mg Ondansetron HCl (Ondansetron 4 Mg/2 Ml Vial) 4 mg IV-PUSH Q8H PRN PRN Reason: Nausea And Vomiting Stop: 05/20/23 13:39 Oxycodone HCl (Oxycodone Ir 5 Mg Tablet) 5 mg PO Q6H PRN PRN Reason: Pain Scale 4 - 7 Pantoprazole Sodium (Pantoprazole 40 Mg Tablet.Dr) 40 mg PO BID [facility] Stop: 05/20/23 20:59 Last Admin: 05/23/22 09:35 [...] (1,000 Units) Tablet) 50 mcg PO DAILY [facility] Stop: 05/21/23 08:59 Last Admin: 05/23/22 09:36 [...] been following with hematology clinic here in [facility] for CAROL injection . Patient missed the last appointment. Patient received 1 unit of RBC May 21. Patient also was given 1 dose of Dlgmuc66,000 units May 21 . Continue to monitor H&H (5) Osteomyelitis of right foot: Plan: Right foot MRI findings as as in HPI. Patient currently covered by vancomycin and Zosyn IV. Status post amputation of the right fourth toe with I&D of right foot abscess with wound VAC placement. Pediatric service is following Documented By: Cristobal Butts MD 05/23/22 2454 Signed By: <Electronically signed by Cristobal Butts MD> 05/23/22 8652 [facility] Work Phone: 1(354) 124-157903-04-2023 Progress note Author Eddy Griggs [facility] May 23, 2022 10:48am Note Date/Time May 23, 2022 10:4 8am [facility] [address] [place] [address] Podiatry Progress Note Signed Patient: Gopal Yates Jr MR#: [id number] : 1965 Acct:[id number] Age/Sex: 56 / M Adm Date: 3 Loc: 3T Room: [address] [place] [address] Type: ADM IN Attending Dr: Salvador Alonso MD Copies to: ~ Subjective Subjective Date of Service: Date of Service: 05/23/2022 Time of Service: 10:46 Narrative: Mr. Ytaes is a 56 year old male being [...] By: <Electronically signed by HARRY Griggs> 05/23/22 6777 [facility] Work Phone: 1(104) 462-437703-04-2023 Progress note Author Salvador Alonso [facility] May 23, 2022 10:32am Note Date/Time May 23, 2022 10:3 2am [facility] [address] [place] [address] Hospitalist Progress Note Signed Patient: Gopal Yates Jr MR#: [id number] : 1965 Acct:[id number] Age/Sex: 56 / M Adm Date: 3 Loc: Room: [address] [place] [address] Type: ADM IN Attending Dr: Salvador Alonso [...] 05/23/22 09:35 Carvedilol 12.5 Mg Tablet PO 02/29/24 16:59 37.5 mg BID.WITH.MEALS [facility] Administration Cyproheptadine [...] signed by Salvador Alonso MD> 05/23/22 1032 [facility] Work Phone: 1([phone] 161-957403-03-2023 Progress note Author Salvador Alonso [facility] May 22, 2022 2:54pm Note Date/Time May 22, 2022 2:55 pm [facility] [address] [place] [address] Hospitalist Progress Note Signed Patient: Gopal Yates Jr MR#: [id number] : 1965 Acct:[id number] Age/Sex: 56 / M Adm Date: 3 Loc: Room: [address] [place] [address] Type: ADM IN Attending Dr: Salvador Alonso [...] prophylaxis CODE STATUS full code Documented By: Salvdaor Alonso MD 05/22/22 1453 Signed By: <Electronically signed by Salvador Alonso MD> 05/22/22 1454 [facility] Work Phone: 1(252) 915-272803-03-2023 Progress note Author Cristobal Butts [facility] May 22, 2022 1:15pm Note Date/Time May 22, 2022 1:16 pm [facility] [address] [place] [address] Nephrology Progress Note Signed Patient: Gopal Yates Jr MR#: [id number] : 1965 Acct:[id number] Age/Sex: 56 / M Adm Date: 3 Loc: Room: [address] [place] [address] Type: ADM IN Attending Dr: Salvador Alonso [...] been following with hematology clinic here in [facility] for CAROL injection. Patient missed her last [...] 2 Mg Tablet) 2 mg PO DAILY [facility] Stop: 05/21/23 08:59 Last Admin: 05/22/22 08:34 Dose: 2 mg Carvedilol (Carvedilol 12.5 Mg Tablet) 37.5 mg PO BID.WITH.MEALS [facility] Stop: 05/20/23 16:59 Last Admin: 05/22/22 08:34 Dose: 37.5 mg Cyproheptadine HCl (Cyproheptadine 4 Mg Tablet) 4 mg PO DAILY [facility] Stop: 05/21/23 08:59 Last Admin: 05/22/22 08:33 Dose: 4 mg Ezetimibe (Ezetimibe 10 Mg Tablet) 10 mg PO DAILY [facility] Stop: 05/21/23 08:59 Last Admin: 05/22/22 08:34 Dose: 10 mg Hydralazine HCl (Hydralazine 50 Mg Tablet) 50 mg PO TID [facility] Stop: 05/20/23 13:59 Last Admin: 05/22/22 08:34 Dose: 50 mg Piperacillin Sod/Tazobactam Sod (Zosyn 2.25gm) 2.25 gm in 100 mls @ 200 mls/hr IV Q6H [facility] Last Admin: 05/22/22 11:31 Dose: 200 mls/hr Lactated Ringer's (Lactated Ringers) 1,000 mls @ 20 mls/hr IV .Q24H [facility] Stop: 05/22/22 13:54 Last Admin: 05/21/22 15:44 Dose: 20 mls/hr Insulin Glargine (Insulin Glargine 300 Units/3 Ml Insuln.Pen) 16 units SUBCUT QAM [facility] Stop: 05/21/23 08:59 Last Admin: 05/22/22 08:34 Dose: 16 units Isosorbide Dinitrate (Isosorbide Dinitrate 10 Mg Tablet) 10 mg PO TID [facility] Stop: 05/20/23 13:59 Last Admin: 05/22/22 08:34 Dose: 10 mg Levothyroxine Sodium (Levothyroxine 100 Mcg Tablet) 100 mcg PO DAILY@0630 [facility] Stop: 05/21/23 06:29 Last Admin: 05/22/22 06:05 Dose: 100 mcg Liothyronine Sodium (Liothyronine 5 Mcg Tablet) 10 mcg PO DAILY [facility] Stop: 05/21/23 08:59 Last Admin: 05/22/22 08:33 Dose: 10 mcg Multivitamins (Multivitamin 1 Tab Tablet) 1 tab PO DAILY [facility] Stop: 05/21/23 08:59 Last Admin: 05/22/22 08:33 Dose: 1 tab Nifedipine (Nifedipine Er.24hr 30 Mg Tab.Er.24) 30 mg PO BID [facility] Stop: 05/20/23 20:59 Last Admin: 05/22/22 08:34 Dose: 30 mg Ondansetron HCl (Ondansetron 4 Mg/2 Ml Vial) 4 mg IV-PUSH Q8H PRN PRN Reason: Nausea And Vomiting Stop: 05/20/23 13:39 Oxycodone HCl (Oxycodone Ir 5 Mg Tablet) 5 mg PO Q6H PRN PRN Reason: Pain Scale 4 - 7 Pantoprazole Sodium (Pantoprazole 40 Mg Tablet.Dr) 40 mg PO BID [facility] Stop: 05/20/23 20:59 Last Admin: 05/22/22 08:34 Dose: 40 mg Potassium Chloride (Potassium Chloride Er 20 Meq Tab.Er.Prt) 40 meq PO DAILY PRN PRN Reason: Hypokalemia Stop: 05/20/23 13:39 Sodium Bicarbonate (Sodium Bicarbonate 650 Mg Tablet) 1,300 mg PO BID [facility] Stop: 05/20/23 20:59 Last Admin: 05/22/22 08:33 [...] been following with hematology clinic here in [facility]. Patient missed the last appointment. Patient received [...] following Documented By: Cristobal Butts MD 05/22/22 131 Signed By: <Electronically signed by Cristobal Butts MD> 05/22/22 131 [facility] Work Phone: [phone] Progress note Author Ashutosh Thomas [facility] May 22, 2022 12:21pm Note Date/Time May 22, 2022 12:2 1pm [facility] [address] [place] [address] Infect. Disease Progress Note Signed Patient: Gopal Yates Jr MR#: [id number] : 1965 Acct:[id number] Age/Sex: 56 / M Adm Date: 3 Loc: Room: [address] [place] [address] Type: ADM IN Attending Dr: Salvador Alonso [...] 2 Mg Tablet) 2 mg PO DAILY [facility] Stop: 05/21/23 08:59 Last Admin: 05/22/22 08:34 Dose: 2 mg Carvedilol (Carvedilol 12.5 Mg Tablet) 37.5 mg PO BID.WITH.MEALS [facility] Stop: 05/20/23 16:59 Last Admin: 05/22/22 08:34 Dose: 37.5 mg Cyproheptadine HCl (Cyproheptadine 4 Mg Tablet) 4 mg PO DAILY [facility] Stop: 05/21/23 08:59 Last Admin: 05/22/22 08:33 Dose: 4 mg Ezetimibe (Ezetimibe 10 Mg Tablet) 10 mg PO DAILY [facility] Stop: 05/21/23 08:59 Last Admin: 05/22/22 08:34 Dose: 10 mg Hydralazine HCl (Hydralazine 50 Mg Tablet) 50 mg PO TID [facility] Stop: 05/20/23 13:59 Last Admin: 05/22/22 08:34 Dose: 50 mg Piperacillin Sod/Tazobactam Sod (Zosyn 2.25gm) 2.25 gm in 100 mls @ 200 mls/hr IV Q6H [facility] Last Admin: 05/22/22 11:31 Dose: 200 mls/hr Lactated Ringer's (Lactated Ringers) 1,000 mls @ 20 mls/hr IV .Q24H [facility] Stop: 05/22/22 13:54 Last Admin: 05/21/22 15:44 Dose: 20 mls/hr Vancomycin HCl 1.25 gm/ (Dextrose) 275 mls @ 183.333 mls/hr IV ONCE [facility] Stop: 05/22/22 12:59 Insulin Glargine (Insulin Glargine 300 Units/3 Ml Insuln.Pen) 16 units SUBCUT QAM [facility] Stop: 05/21/23 08:59 Last Admin: 05/22/22 08:34 Dose: 16 units Isosorbide Dinitrate (Isosorbide Dinitrate 10 Mg Tablet) 10 mg PO TID [facility] Stop: 05/20/23 13:59 Last Admin: 05/22/22 08:34 Dose: 10 mg Levothyroxine Sodium (Levothyroxine 100 Mcg Tablet) 100 mcg PO DAILY@0630 [facility] Stop: 05/21/23 06:29 Last Admin: 05/22/22 06:05 Dose: 100 mcg Liothyronine Sodium (Liothyronine 5 Mcg Tablet) 10 mcg PO DAILY [facility] Stop: 05/21/23 08:59 Last Admin: 05/22/22 08:33 Dose: 10 mcg Multivitamins (Multivitamin 1 Tab Tablet) 1 tab PO DAILY [facility] Stop: 05/21/23 08:59 Last Admin: 05/22/22 08:33 Dose: 1 tab Nifedipine (Nifedipine Er.24hr 30 Mg Tab.Er.24) 30 mg PO BID [facility] Stop: 05/20/23 20:59 Last Admin: 05/22/22 08:34 Dose: 30 mg Ondansetron HCl (Ondansetron 4 Mg/2 Ml Vial) 4 mg IV-PUSH Q8H PRN PRN Reason: Nausea And Vomiting Stop: 05/20/23 13:39 Oxycodone HCl (Oxycodone Ir 5 Mg Tablet) 5 mg PO Q6H PRN PRN Reason: Pain Scale 4 - 7 Pantoprazole Sodium (Pantoprazole 40 Mg Tablet.Dr) 40 mg PO BID [facility] Stop: 05/20/23 20:59 Last Admin: 05/22/22 08:34 Dose: 40 mg Potassium Chloride (Potassium Chloride Er 20 Meq Tab.Er.Prt) 40 meq PO DAILY PRN PRN Reason: Hypokalemia Stop: 05/20/23 13:39 Sodium Bicarbonate (Sodium Bicarbonate 650 Mg Tablet) 1,300 mg PO BID [facility] Stop: 05/20/23 20:59 Last Admin: 05/22/22 08:33 [...] (1,000 Units) Tablet) 50 mcg PO DAILY [facility] Stop: 05/21/23 08:59 Last Admin: 05/22/22 08:33 [...] signed by MD Ashutosh Thomas> 05/22/22 1221 [facility] Work Phone: [phone] Progress note Author Eddy Griggs [facility] May 22, 2022 8:23am Note Date/Time May 22, 2022 8:18 am [facility] [address] [place] [address] Podiatry Progress Note Signed Patient: Gopal Yates Jr MR#: [id number] : 1965 Acct:[id number] Age/Sex: 56 / M Adm Date: 3 Loc: Room: [address] [place] [address] Type: ADM IN Attending Dr: Salvador Alonso [...] he would like to go to the [place] [facility] in order to have dressing [...] <Electronically signed by HARRY Griggs> 05/22/22 0823 [facility] Work Phone: [phone] Progress note Author Salvador Alonso [facility] May 21, 2022 11:00pm Note Date/Time May 21, 2022 11:0 0pm [facility] [address] [place] [address] Hospitalist Progress Note Signed Patient: Gopal Yates Jr MR#: [id number] : 1965 Acct:[id number] Age/Sex: 56 / M Adm Date: 3 Loc: Room: [address] [place] [address] Type: ADM IN Attending Dr: Salvador Alonso [...] Tablet PO 05/21/23 08:59 Not Given DAILY [facility] Carvedilol 37.5 mg 05/20/22 17:00 05/21/22 19:39 Carvedilol 12.5 Mg Tablet PO 05/20/23 16:59 Not Given BID.WITH.MEALS [facility] Cyproheptadine HCl 4 mg 05/21/22 09:00 05/21/22 08:00 Cyproheptadine 4 Mg Tablet PO 05/21/23 08:59 Not Given DAILY [facility] Ezetimibe 10 mg 05/21/22 09:00 05/21/22 08:00 Ezetimibe 10 Mg Tablet PO 05/21/23 08:59 Not Given DAILY [facility] Hydralazine HCl 50 mg 05/20/22 14:00 05/21/22 [...] code Documented By: Salvador Alonso MD 05/21/22 6099 Signed By: <Electronically signed by Salvador Alonso MD> 05/21/22 2574 [facility] Work Phone: [phone]) [phone] Consult note Author Cristobal Butts [facility] May 21, 2022 1:27pm Note Date/Time May 21, 2022 1:27 pm [facility] [address] [place] [address] Nephrology Consult Note Signed Patient: Gopal Yates MR#: [id number] : 1965 Acct:[id number] Age/Sex: 56 / M Adm Date: 3 Loc: Room: [address] [place] [address] Type: ADM IN Attending Dr: Salvador Alonso MD Copies to: MD Cristobal Boles MD Douglas M Hoy, MD~ Providers Consult Date: 05/21/22 Requesting Provider: Salvador Alonso MD Primary Care Provider: Douglas Juárez MD [facility] Reason for Consult: Chronic kidney disease stage [...] been following with hematology clinic here in [facility] for CAROL injection. Patient missed her last [...] 2 Mg Tablet) 2 mg PO DAILY [facility] Stop: 05/21/23 08:59 Last Admin: 05/21/22 08:00 Dose: Not Given Carvedilol (Carvedilol 12.5 Mg Tablet) 37.5 mg PO BID.WITH.MEALS [facility] Stop: 05/20/23 16:59 Last Admin: 05/21/22 07:52 Dose: 37.5 mg Cyproheptadine HCl (Cyproheptadine 4 Mg Tablet) 4 mg PO DAILY [facility] Stop: 05/21/23 08:59 Last Admin: 05/21/22 08:00 Dose: Not Given Ezetimibe (Ezetimibe 10 Mg Tablet) 10 mg PO DAILY [facility] Stop: 05/21/23 08:59 Last Admin: 05/21/22 08:00 Dose: Not Given Hydralazine HCl (Hydralazine 50 Mg Tablet) 50 mg PO TID [facility] Stop: 05/20/23 13:59 Last Admin: 05/21/22 08:00 Dose: Not Given Sodium Chloride (0.9 % Sodium Chloride) 500 mls @ 20 mls/hr IV PROTOCOL PRN PRN Reason: BLOOD TRANSFUSION Stop: 05/22/22 08:32 Piperacillin Sod/Tazobactam Sod (Zosyn 2.25gm) 2.25 gm in 100 mls @ 200 mls/hr IV Q6H [facility] Last Admin: 05/21/22 11:18 Dose: 200 mls/hr Insulin Glargine (Insulin Glargine 300 Units/3 Ml Insuln.Pen) 16 units SUBCUT QAM [facility] Stop: 05/21/23 08:59 Last Admin: 05/21/22 08:00 Dose: Not Given Isosorbide Dinitrate (Isosorbide Dinitrate 10 Mg Tablet) 10 mg PO TID [facility] Stop: 05/20/23 13:59 Last Admin: 05/21/22 08:00 Dose: Not Given Levothyroxine Sodium (Levothyroxine 100 Mcg Tablet) 100 mcg PO DAILY@0630 [facility] Stop: 05/21/23 06:29 Last Admin: 05/21/22 06:20 Dose: 100 mcg Liothyronine Sodium (Liothyronine 5 Mcg Tablet) 10 mcg PO DAILY [facility] Stop: 05/21/23 08:59 Last Admin: 05/21/22 08:00 Dose: Not Given Multivitamins (Multivitamin 1 Tab Tablet) 1 tab PO DAILY [facility] Stop: 05/21/23 08:59 Last Admin: 05/21/22 08:00 Dose: Not Given Nifedipine (Nifedipine Er.24hr 30 Mg Tab.Er.24) 30 mg PO BID [facility] Stop: 05/20/23 20:59 Last Admin: 05/21/22 08:01 Dose: Not Given Ondansetron HCl (Ondansetron 4 Mg/2 Ml Vial) 4 mg IV-PUSH Q8H PRN PRN Reason: Nausea And Vomiting Stop: 05/20/23 13:39 Oxycodone HCl (Oxycodone Ir 5 Mg Tablet) 5 mg PO Q6H PRN PRN Reason: Pain Scale 4 - 7 Pantoprazole Sodium (Pantoprazole 40 Mg Tablet.Dr) 40 mg PO BID [facility] Stop: 05/20/23 20:59 Last Admin: 05/21/22 08:01 Dose: Not Given Potassium Chloride (Potassium Chloride Er 20 Meq Tab.Er.Prt) 40 meq PO DAILY PRN PRN Reason: Hypokalemia Stop: 05/20/23 13:39 Sodium Bicarbonate (Sodium Bicarbonate 650 Mg Tablet) 1,300 mg PO BID [facility] Stop: 05/20/23 20:59 Last Admin: 05/21/22 08:01 [...] Flynn Bradley M.D.05/21/2022 10:03 AM Dictation Location: [place] [address] Any impression(s) listed above is documentation that [...] been following with hematology clinic here in [facility]. Patient missed the last appointment. Patient is [...] signed by Cristobal Butts MD> 05/21/22 1327 [facility] Work Phone: [phone]) [phone] Consult note Author PHILLIP Luis [facility] May 21, 2022 12:02pm Note Date/Time May 21, 2022 11:5 8am [facility] [address] [place] [address] Podiatry Consult Note Signed Patient: Gopal Yates Jr MR#: [id number] : 1965 Acct:[id number] Age/Sex: 56 / M Adm Date: 3 Loc: Room: [address] [place] [address] Type: ADM IN Attending Dr: Salvador Alonso [...] neuropathy, unspecified Documented By: Primo Luis,HARRY, , PHILLIP 05/14 115 Signed By: <Electronically signed by HARRY Luis> 05/21/22 1202 [facility] Work Phone: [phone]) [phone] Consult note Author Ashutosh Thomas [facility] May 21, 2022 10:40am Note Date/Time May 21, 2022 10:0 4am [facility] [address] [place] [address] Infect. Disease Consult Note Signed Patient: Gopal Yates Jr MR#: [id number] : 1965 Acct:[id number] Age/Sex: 56 / M Adm Date: 3 Loc: 3T Room: [address] [place] [address] Type: ADM IN Attending Dr: Salvador Alonso [...] sent to the ED yesterday by his back sewer, Dr. Griggs, because his right foot wound continued to show signs of infection. The patient recently had resection of his right fifth digit on 05/07 and completed a 10-day course of Augmentin. The patient states that his wound continued to drain after the operation and that his back sewer has scheduled surgery for today. He continues on IV vancomycin, which was started in the ED. The patient has past medical history significant for CKD stage 5 for which he isscheduled to start dialysis and have a PD catheter placed next week, CAD post?[place], HFpEF, hypertension, hyperlipidemia, insulin-dependent T2DM, and hypothyroidism. [...] 2 Mg Tablet) 2 mg PO DAILY [facility] Stop: 05/21/23 08:59 Last Admin: 05/21/22 08:00 Dose: Not Given Carvedilol (Carvedilol 12.5 Mg Tablet) 37.5 mg PO BID.WITH.MEALS [facility] Stop: 05/20/23 16:59 Last Admin: 05/21/22 07:52 Dose: 37.5 mg Cyproheptadine HCl (Cyproheptadine 4 Mg Tablet) 4 mg PO DAILY [facility] Stop: 05/21/23 08:59 Last Admin: 05/21/22 08:00 Dose: Not Given Ezetimibe (Ezetimibe 10 Mg Tablet) 10 mg PO DAILY [facility] Stop: 05/21/23 08:59 Last Admin: 05/21/22 08:00 Dose: Not Given Hydralazine HCl (Hydralazine 50 Mg Tablet) 50 mg PO TID [facility] Stop: 05/20/23 13:59 Last Admin: 05/21/22 08:00 Dose: Not Given Sodium Chloride (0.9 % Sodium Chloride) 500 mls @ 20 mls/hr IV PROTOCOL PRN PRN Reason: BLOOD TRANSFUSION Stop: 05/22/22 08:32 Insulin Glargine (Insulin Glargine 300 Units/3 Ml Insuln.Pen) 16 units SUBCUT QAM [facility] Stop: 05/21/23 08:59 Last Admin: 05/21/22 08:00 Dose: Not Given Isosorbide Dinitrate (Isosorbide Dinitrate 10 Mg Tablet) 10 mg PO TID [facility] Stop: 05/20/23 13:59 Last Admin: 05/21/22 08:00 Dose: Not Given Levothyroxine Sodium (Levothyroxine 100 Mcg Tablet) 100 mcg PO DAILY@0630 [facility] Stop: 05/21/23 06:29 Last Admin: 05/21/22 06:20 Dose: 100 mcg Liothyronine Sodium (Liothyronine 5 Mcg Tablet) 10 mcg PO DAILY [facility] Stop: 05/21/23 08:59 Last Admin: 05/21/22 08:00 Dose: Not Given Multivitamins (Multivitamin 1 Tab Tablet) 1 tab PO DAILY [facility] Stop: 05/21/23 08:59 Last Admin: 05/21/22 08:00 Dose: Not Given Nifedipine (Nifedipine Er.24hr 30 Mg Tab.Er.24) 30 mg PO BID [facility] Stop: 05/20/23 20:59 Last Admin: 05/21/22 08:01 Dose: Not Given Ondansetron HCl (Ondansetron 4 Mg/2 Ml Vial) 4 mg IV-PUSH Q8H PRN PRN Reason: Nausea And Vomiting Stop: 05/20/23 13:39 Oxycodone HCl (Oxycodone Ir 5 Mg Tablet) 5 mg PO Q6H PRN PRN Reason: Pain Scale 4 - 7 Pantoprazole Sodium (Pantoprazole 40 Mg Tablet.Dr) 40 mg PO BID [facility] Stop: 05/20/23 20:59 Last Admin: 05/21/22 08:01 Dose: Not Given Potassium Chloride (Potassium Chloride Er 20 Meq Tab.Er.Prt) 40 meq PO DAILY PRN PRN Reason: Hypokalemia Stop: 05/20/23 13:39 Sodium Bicarbonate (Sodium Bicarbonate 650 Mg Tablet) 1,300 mg PO BID [facility] Stop: 05/20/23 20:59 Last Admin: 05/21/22 08:01 [...] (1,000 Units) Tablet) 50 mcg PO DAILY [facility] Stop: 05/21/23 08:59 Last Admin: 05/21/22 08:00 [...] <Electronically signed by MD Ashutosh Thomas> 05/21/22 3432 [facility] Work Phone: [phone]) [phone] History and physical note Author Salvador Alonso [facility] May 20, 2022 2:43pm Note Date/Time May 20, 2022 1:50 pm [facility] [address] [place] [address] Hospitalist H&P Signed Patient: Gopal Yates Jr MR#: [id number] : 1965 Acct:[id number] Age/Sex: 56 / M Adm Date: 3 Loc: Room: [address] [place] [address] Type: ADM IN Attending Dr: Salvador Alonso MD Copies to: MD Douglas Boles MD~ HPI DATE OF EXAMINATION: 05/20/22 CHIEF COMPLAINT: osteomyelits HISTORY OF PRESENT ILLNESS: Mr. Yates is a 56yo M with PMH of CKD stage V, CAD status post [place], HFpEF, HTN, HLD, insulin-dependent DM type II, hypothyroidism was sent to the emergency department by his back sewer due to worsening right lateral foot ulcer. [...] % (Auto) 3.3 % (.) 05/20/22 11:35 [place] % (Auto) 8.7 % (.) 05/20/22 11:35 Eos % (Auto) 0.2 % (.) 05/20/22 11:35 Baso % (Auto) 0.8 % (.) 05/20/22 11:35 Nucleat RBC Rel Count 0.1 /100 WBC (0-0.5) 05/20/22 11:35 Neut # (Auto) 8.0 x10E3/uL (1.8-7.7) H 05/20/22 11:35 Lymph # (Auto) 0.3 x10E3/uL (1.00-4.8) L 05/20/22 11:35 [place] # (Auto) 0.8 x10E3/uL (0.0-0.8) 05/20/22 11:35 [...] <Electronically signed by Salvador Alonso MD> 05/20/22 1443 [facility] Work Phone: 1(544) 841-410602-17-2023 Progress note Author Yvonne Barboza [facility] May 08, 2022 11:37am Note Date/Time May 08, 2022 11:37am [facility] [address] [place] [address] Nephrology Progress Note Signed Patient: Gopal Yates Jr MR#: [id number] : 1965 Acct:[id number] Age/Sex: 56 / M Adm Date: 3 Loc: Room: 7R1256-6 Type: ADM IN Attending Dr: Cornelio Simon [...] visible mass Skin: No rashes or bruises [employer]: Awake,Alert, 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 Musculoskeletal: No joint [...] 81 Mg Tablet.) 81 mg PO DAILY [facility] Stop: 05/06/23 08:59 Last Admin: 05/06/22 08:25 Dose: 81 mg Bumetanide (Bumetanide 2 Mg Tablet) 2 mg PO DAILY [facility] Stop: 05/06/23 08:59 Last Admin: 05/08/22 08:48 Dose: 2 mg Carvedilol (Carvedilol 12.5 Mg Tablet) 25 mg PO BID [facility] Stop: 05/05/23 20:59 Last Admin: 05/08/22 08:48 Dose: 25 mg Clopidogrel Bisulfate (Clopidogrel Bisulfate 75 Mg Tablet) 75 mg PO DAILY [facility] Stop: 05/06/23 08:59 Last Admin: 05/06/22 08:26 Dose: 75 mg Dextrose (Dextrose 50% In Water 25 Gm/50 Ml Syringe) 0 gm IV-PUSH PRN PRN PRN Reason: Hypoglycemia Stop: 05/05/23 16:33 Ezetimibe (Ezetimibe 10 Mg Tablet) 10 mg PO DAILY [facility] Stop: 05/06/23 08:59 Last Admin: 05/08/22 08:48 Dose: 10 mg Ferrous Sulfate (Ferrous Sulfate 324 Mg Tablet.) 324 mg PO DAILY [facility] Stop: 05/06/23 08:59 Last Admin: 05/08/22 08:48 Dose: 324 mg Glucose (Dextrose 40% Gel 15 Gm Tube) 0 gm PO PRN PRN PRN Reason: Hypoglycemia Stop: 05/05/23 16:33 Heparin Sodium (Porcine) (Heparin 5,000 Unit/Ml Vial) 5,000 unit SUBCUT Q8HR [facility] Stop: 05/06/23 21:59 Last Admin: 05/08/22 05:43 Dose: 5,000 unit Hydralazine HCl (Hydralazine 50 Mg Tablet) 50 mg PO TID [facility] Stop: 05/05/23 21:59 Last Admin: 05/08/22 08:49 [...] 100 mls @ 200 mls/hr IV Q12H [facility] Stop: 05/06/23 04:59 Last Admin: 05/08/22 04:08 Dose: 200 mls/hr Insulin Aspart (Insulin Aspart 300 Units/3 Ml Insuln.Pen) 0 units SUBCUT TID.WM.HS [facility]; Protocol Stop: 05/05/23 16:59 Last Admin: 05/08/22 08:50 Dose: Not Given Insulin Glargine (Insulin Glargine 300 Units/3 Ml Insuln.Pen) 16 units SUBCUT QAM [facility] Stop: 05/06/23 08:59 Last Admin: 05/08/22 08:50 Dose: Not Given Isosorbide Dinitrate (Isosorbide Dinitrate 10 Mg Tablet) 10 mg PO TID [facility] Stop: 05/05/23 21:59 Last Admin: 05/08/22 08:49 Dose: 10 mg Levothyroxine Sodium (Levothyroxine 100 Mcg Tablet) 100 mcg PO DAILY@0630 [facility] Stop: 05/06/23 06:29 Last Admin: 05/08/22 05:43 Dose: 100 mcg Multivitamins (Multivitamin 1 Tab Tablet) 1 tab PO DAILY [facility] Stop: 05/06/23 08:59 Last Admin: 05/08/22 08:49 Dose: 1 tab Nifedipine (Nifedipine Er.24hr 30 Mg Tab.Er.24) 30 mg PO BID [facility] Stop: 05/05/23 20:59 Last Admin: 05/08/22 08:48 Dose: 30 mg Ondansetron HCl (Ondansetron 4 Mg/2 Ml Vial) 4 mg IV-PUSH Q6H PRN PRN Reason: Nausea And Vomiting Stop: 05/05/23 16:35 Pantoprazole Sodium (Pantoprazole 40 Mg Tablet.Dr) 40 mg PO DAILY [facility] Stop: 05/06/23 08:59 Last Admin: 05/08/22 08:49 Dose: 40 mg Potassium Chloride (Potassium Chloride Er 20 Meq Tab.Er.Prt) 40 meq PO DAILY PRN PRN Reason: Hypokalemia Stop: 05/05/23 16:35 Sodium Bicarbonate (Sodium Bicarbonate 650 Mg Tablet) 1,300 mg PO BID [facility] Stop: 05/08/23 20:59 Sodium Chloride (Sodium Chloride [...] [facility] Stop: 05/06/23 08:59 Last Admin: 05/08/22 08:48 [...] daily. * Documented By: Yvonne Barboza MD 05/08/22 113 Signed By: <Electronically signed by Yvonne Barboza MD> 05/08/22 113 [facility] Work Phone: [phone] Progress note Author Cornelio Simon [facility] May 07, 2022 5:08pm Note Date/Time May 07, 2022 4:41pm [facility] [address] [place] [address] Hospitalist Progress Note Signed Patient: Gopal Yates Jr MR#: [id number] : 1965 Acct:[id number] Age/Sex: 56 / M Adm Date: 3 Loc: 4N Room: 6Q3215-8 Type: ADM IN Attending Dr: Cornelio Simon [...] Insuln.Pen SUBCUT 05/05/23 16:59 Not Given TID.WM.HS [facility] Protocol Insulin Glargine 16 units 05/06/22 09:00 05/07/22 08:07 Insulin Glargine 300 Units/3 Ml Insuln.Pen SUBCUT 05/06/23 08:59 Not Given QAM [facility] Isosorbide Dinitrate 10 mg 05/05/22 22:00 05/07/22 13:59 Isosorbide Dinitrate 10 Mg Tablet PO 05/05/23 21:59 10 mg TID [facility] Administration Levothyroxine Sodium 100 mcg 05/06/22 06:30 05/07/22 07:25 Levothyroxine 100 Mcg Tablet PO 05/06/23 06:29 Not Given DAILY@0630 [facility] Multivitamins 1 tab 05/06/22 09:00 05/07/22 08:07 [...] -Continue Bumex, sodium bicarb CAD status post WI/stent x1 HFpEF Hyperlipidemia Hypertension Patient has no [...] code Documented By: Cornelio Simon MD 3 1494 Signed By: <Electronically signed by Cornelio Simon MD> 05/07/22 7902 [facility] Work Phone: [phone] 604-330902-16-2023 Progress note Author Yvonne Barboza [facility] May 07, 2022 12:06pm Note Date/Time May 07, 2022 12:06pm [facility] [address] [place] [address] Nephrology Progress Note Signed Patient: Gopal Yates Jr MR#: [id number] : 1965 Acct:[id number] Age/Sex: 56 / M Adm Date: 3 Loc: 4N Room: 4U0204-8 Type: ADM IN Attending Dr: Cornelio Simon [...] visible mass Skin: No rashes or bruises [employer]: Awake,Alert, 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 Musculoskeletal: No joint [...] 81 Mg Tablet.) 81 mg PO DAILY [facility] Stop: 05/06/23 08:59 Last Admin: 05/06/22 08:25 Dose: 81 mg Bumetanide (Bumetanide 2 Mg Tablet) 2 mg PO DAILY [facility] Stop: 05/06/23 08:59 Last Admin: 05/06/22 08:26 Dose: 2 mg Carvedilol (Carvedilol 12.5 Mg Tablet) 25 mg PO BID [facility] Stop: 05/05/23 20:59 Last Admin: 05/07/22 08:04 Dose: 25 mg Clopidogrel Bisulfate (Clopidogrel Bisulfate 75 Mg Tablet) 75 mg PO DAILY [facility] Stop: 05/06/23 08:59 Last Admin: 05/06/22 08:26 Dose: 75 mg Dextrose (Dextrose 50% In Water 25 Gm/50 Ml Syringe) 0 gm IV-PUSH PRN PRN PRN Reason: Hypoglycemia Stop: 05/05/23 16:33 Ezetimibe (Ezetimibe 10 Mg Tablet) 10 mg PO DAILY [facility] Stop: 05/06/23 08:59 Last Admin: 05/06/22 08:26 Dose: 10 mg Ferrous Sulfate (Ferrous Sulfate 324 Mg Tablet.) 324 mg PO DAILY [facility] Stop: 05/06/23 08:59 Last Admin: 05/07/22 08:07 Dose: Not Given Glucose (Dextrose 40% Gel 15 Gm Tube) 0 gm PO PRN PRN PRN Reason: Hypoglycemia Stop: 05/05/23 16:33 Heparin Sodium (Porcine) (Heparin 5,000 Unit/Ml Vial) 5,000 unit SUBCUT Q8HR [facility] Stop: 05/06/23 21:59 Last Admin: 05/07/22 05:07 Dose: Not Given Hydralazine HCl (Hydralazine 50 Mg Tablet) 50 mg PO TID [facility] Stop: 05/05/23 21:59 Last Admin: 05/07/22 08:07 Dose: Not Given Magnesium Sulfate (Magnesium Sulf 2gm-*Swfi*) 2 gm in 50 mls @ 25 mls/hr IV DAILY PRN PRN Reason: Magnesium Level < 1.7 Stop: 05/05/23 16:35 Ceftaroline Fosamil 300 mg/ (Sodium Chloride) 100 mls @ 200 mls/hr IV Q12H [facility] Stop: 05/06/23 04:59 Last Admin: 05/07/22 05:07 Dose: 200 mls/hr Lactated Ringer's (Lactated Ringers) 1,000 mls @ 20 mls/hr IV .Q24H [facility] Stop: 05/08/22 01:54 Insulin Aspart (Insulin Aspart 300 Units/3 Ml Insuln.Pen) 0 units SUBCUT TID.WM.HS [facility]; Protocol Stop: 05/05/23 16:59 Last Admin: 05/07/22 12:02 Dose: Not Given Insulin Glargine (Insulin Glargine 300 Units/3 Ml Insuln.Pen) 16 units SUBCUT QAM [facility] Stop: 05/06/23 08:59 Last Admin: 05/07/22 08:07 Dose: Not Given Isosorbide Dinitrate (Isosorbide Dinitrate 10 Mg Tablet) 10 mg PO TID [facility] Stop: 05/05/23 21:59 Last Admin: 05/07/22 08:07 Dose: Not Given Levothyroxine Sodium (Levothyroxine 100 Mcg Tablet) 100 mcg PO DAILY@0630 [facility] Stop: 05/06/23 06:29 Last Admin: 05/07/22 07:25 Dose: Not Given Multivitamins (Multivitamin 1 Tab Tablet) 1 tab PO DAILY [facility] Stop: 05/06/23 08:59 Last Admin: 05/07/22 08:07 Dose: Not Given Nifedipine (Nifedipine Er.24hr 30 Mg Tab.Er.24) 30 mg PO BID [facility] Stop: 05/05/23 20:59 Last Admin: 05/07/22 08:04 Dose: 30 mg Ondansetron HCl (Ondansetron 4 Mg/2 Ml Vial) 4 mg IV-PUSH Q6H PRN PRN Reason: Nausea And Vomiting Stop: 05/05/23 16:35 Pantoprazole Sodium (Pantoprazole 40 Mg Tablet.Dr) 40 mg PO DAILY [facility] Stop: 05/06/23 08:59 [...] LOWER EXTREMITY. Impression dictated by: Esteban Harden MD05/07/2022 8:58 AM Dictation Location: [place] [address] Any impression(s) listed above is documentation that [...] By: <Electronically signed by Yvonne Barboza MD> 05/07/221205 [facility] Work Phone: [phone] Progress note Author Ashutosh Thomas [facility] May 07, 2022 10:01am Note Date/Time May 07, 2022 10:02am [facility] [address] [place] [address] Infect. Disease Progress Note Signed Patient: Gopal Yates Jr MR#: [id number] : 1965 Acct:[id number] Age/Sex: 56 / M Adm Date: 3 Loc: Room: [address] [place] [address] Type: ADM IN Attending Dr: Cornelio Simon [...] 81 Mg Tablet.) 81 mg PO DAILY [facility] Stop: 05/06/23 08:59 Last Admin: 05/06/22 08:25 Dose: 81 mg Bumetanide (Bumetanide 2 Mg Tablet) 2 mg PO DAILY [facility] Stop: 05/06/23 08:59 Last Admin: 05/06/22 08:26 Dose: 2 mg Carvedilol (Carvedilol 12.5 Mg Tablet) 25 mg PO BID [facility] Stop: 05/05/23 20:59 Last Admin: 05/07/22 08:04 Dose: 25 mg Clopidogrel Bisulfate (Clopidogrel Bisulfate 75 Mg Tablet) 75 mg PO DAILY [facility] Stop: 05/06/23 08:59 Last Admin: 05/06/22 08:26 Dose: 75 mg Dextrose (Dextrose 50% In Water 25 Gm/50 Ml Syringe) 0 gm IV-PUSH PRN PRN PRN Reason: Hypoglycemia Stop: 05/05/23 16:33 Ezetimibe (Ezetimibe 10 Mg Tablet) 10 mg PO DAILY [facility] Stop: 05/06/23 08:59 Last Admin: 05/06/22 08:26 Dose: 10 mg Ferrous Sulfate (Ferrous Sulfate 324 Mg Tablet.) 324 mg PO DAILY [facility] Stop: 05/06/23 08:59 Last Admin: 05/07/22 08:07 Dose: Not Given Glucose (Dextrose 40% Gel 15 Gm Tube) 0 gm PO PRN PRN PRN Reason: Hypoglycemia Stop: 05/05/23 16:33 Heparin Sodium (Porcine) (Heparin 5,000 Unit/Ml Vial) 5,000 unit SUBCUT Q8HR [facility] Stop: 05/06/23 21:59 Last Admin: 05/07/22 05:07 Dose: Not Given Hydralazine HCl (Hydralazine 50 Mg Tablet) 50 mg PO TID [facility] Stop: 05/05/23 21:59 Last Admin: 05/07/22 08:07 Dose: Not Given Magnesium Sulfate (Magnesium Sulf 2gm-*Swfi*) 2 gm in 50 mls @ 25 mls/hr IV DAILY PRN PRN Reason: Magnesium Level < 1.7 Stop: 05/05/23 16:35 Ceftaroline Fosamil 300 mg/ (Sodium Chloride) 100 mls @ 200 mls/hr IV Q12H [facility] Stop: 05/06/23 04:59 Last Admin: 05/07/22 05:07 Dose: 200 mls/hr Lactated Ringer's (Lactated Ringers) 1,000 mls @ 20 mls/hr IV .Q24H [facility] Stop: 05/08/22 01:54 Insulin Aspart (Insulin Aspart 300 Units/3 Ml Insuln.Pen) 0 units SUBCUT TID.WM.HS [facility]; Protocol Stop: 05/05/23 16:59 Last Admin: 05/07/22 08:05 Dose: Not Given Insulin Glargine (Insulin Glargine 300 Units/3 Ml Insuln.Pen) 16 units SUBCUT QAM [facility] Stop: 05/06/23 08:59 Last Admin: 05/07/22 08:07 Dose: Not Given Isosorbide Dinitrate (Isosorbide Dinitrate 10 Mg Tablet) 10 mg PO TID [facility] Stop: 05/05/23 21:59 Last Admin: 05/07/22 08:07 Dose: Not Given Levothyroxine Sodium (Levothyroxine 100 Mcg Tablet) 100 mcg PO DAILY@0630 [facility] Stop: 05/06/23 06:29 Last Admin: 05/07/22 07:25 Dose: Not Given Multivitamins (Multivitamin 1 Tab Tablet) 1 tab PO DAILY [facility] Stop: 05/06/23 08:59 Last Admin: 05/07/22 08:07 Dose: Not Given Nifedipine (Nifedipine Er.24hr 30 Mg Tab.Er.24) 30 mg PO BID [facility] Stop: 05/05/23 20:59 Last Admin: 05/07/22 08:04 Dose: 30 mg Ondansetron HCl (Ondansetron 4 Mg/2 Ml Vial) 4 mg IV-PUSH Q6H PRN PRN Reason: Nausea And Vomiting Stop: 05/05/23 16:35 Pantoprazole Sodium (Pantoprazole 40 Mg Tablet.Dr) 40 mg PO DAILY [facility] Stop: 05/06/23 08:59 Last Admin: 05/07/22 08:07 [...] (1,000 Units) Tablet) 50 mcg PO DAILY [facility] Stop: 05/06/23 08:59 Last Admin: 05/07/22 08:07 [...] performed. Documented By: Ashutosh Thomas MD 05/07/22 0974 Signed By: <Electronically signed by MD Ashutosh Thomas> 05/07/22 1006 [facility] Work Phone: [phone] 173-491102-15-2023 Consult note Author Eddy Griggs [facility] May 06, 2022 5:35pm Note Date/Time May 06, 2022 5:35pm [facility] [address] [place] [address] Podiatry Consult Note Signed Patient: Gopal Yates Jr MR#: [id number] : 1965 Acct:[id number] Age/Sex: 56 / M Adm Date: 3 Loc: 4N Room: [address] [place] [address] Type: ADM IN Attending Dr: Cornelio Simon [...] under at the wound care center in [place] and x-rays were noted to have osteomyelitis. Due to his kidney function he was sent to [facility] as there is a concern for need for inpatient dialysis which is not available at [place]. Patient states that he has had some [...] did request to have follow-up at the [place] wound care center. I will contact Dr. Rivera to ensure that this is okay for [...] By: <Electronically signed by HARRY Griggs> 05/06/22 0620 [facility] Work Phone: [phone] Consult note Author Sohan Kellogg [facility] May 06, 2022 5:02pm Note Date/Time May 06, 2022 4:57pm [facility] [address] [place] [address] General Surgery Consult Note Signed Patient: NicolásGopal Kajal Perkins MR#: [id number] : 1965 Acct:[id number] Age/Sex: 56 / M Adm Date: 3 Loc: 4N Room: [address] [place] [address] Type: ADM IN Attending Dr: Cornelio Simon [...] 2 Mg Tablet) 2 mg PO DAILY [facility] Stop: 05/06/23 08:59 Last Admin: 05/06/22 08:26 Dose: 2 mg Carvedilol (Carvedilol 12.5 Mg Tablet) 25 mg PO BID [facility] Stop: 05/05/23 20:59 Last Admin: 05/06/22 08:26 Dose: 25 mg Clopidogrel Bisulfate (Clopidogrel Bisulfate 75 Mg Tablet) 75 mg PO DAILY [facility] Stop: 05/06/23 08:59 Last Admin: 05/06/22 08:26 Dose: 75 mg Dextrose (Dextrose 50% In Water 25 Gm/50 Ml Syringe) 0 gm IV-PUSH PRN PRN PRN Reason: Hypoglycemia Stop: 05/05/23 16:33 Ezetimibe (Ezetimibe 10 Mg Tablet) 10 mg PO DAILY [facility] Stop: 05/06/23 08:59 Last Admin: 05/06/22 08:26 Dose: 10 mg Ferrous Sulfate (Ferrous Sulfate 324 Mg Tablet.) 324 mg PO DAILY [facility] Stop: 05/06/23 08:59 Last Admin: 05/06/22 08:25 Dose: 324 mg Glucose (Dextrose 40% Gel 15 Gm Tube) 0 gm PO PRN PRN PRN Reason: Hypoglycemia Stop: 05/05/23 16:33 Heparin Sodium (Porcine) (Heparin 5,000 Unit/Ml Vial) 5,000 unit SUBCUT Q8HR [facility] Stop: 05/06/23 21:59 Hydralazine HCl (Hydralazine 50 Mg Tablet) 50 mg PO TID [facility] Stop: 05/05/23 21:59 Last Admin: 05/06/22 14:46 Dose: 50 mg Magnesium Sulfate (Magnesium Sulf 2gm-*Swfi*) 2 gm in 50 mls @ 25 mls/hr IV DAILY PRN PRN Reason: Magnesium Level < 1.7 Stop: 05/05/23 16:35 Ceftaroline Fosamil 300 mg/ (Sodium Chloride) 100 mls @ 200 mls/hr IV Q12H [facility] Stop: 05/06/23 04:59 Last Admin: 05/06/22 05:28 Dose: 200 mls/hr Sodium Bicarbonate 150 meq/ (Sterile Water) 1,150 mls @ 100 mls/hr IV .[id number] [facility] Stop: 05/07/22 10:29 Last Admin: 05/06/22 12:58 Dose: 100 mls/hr Insulin Aspart (Insulin Aspart 300 Units/3 Ml Insuln.Pen) 0 units SUBCUT TID.WM.HS [facility]; Protocol Stop: 05/05/23 16:59 Last Admin: 05/06/22 12:58 Dose: Not Given Insulin Glargine (Insulin Glargine 300 Units/3 Ml Insuln.Pen) 16 units SUBCUT QAM [facility] Stop: 05/06/23 08:59 Last Admin: 05/06/22 08:26 Dose: Not Given Isosorbide Dinitrate (Isosorbide Dinitrate 10 Mg Tablet) 10 mg PO TID [facility] Stop: 05/05/23 21:59 Last Admin: 05/06/22 14:46 Dose: 10 mg Levothyroxine Sodium (Levothyroxine 100 Mcg Tablet) 100 mcg PO DAILY@0630 [facility] Stop: 05/06/23 06:29 Last Admin: 05/06/22 05:30 Dose: 100 mcg Multivitamins (Multivitamin 1 Tab Tablet) 1 tab PO DAILY [facility] Stop: 05/06/23 08:59 Last Admin: 05/06/22 08:26 Dose: 1 tab Nifedipine (Nifedipine Er.24hr 30 Mg Tab.Er.24) 30 mg PO BID [facility] Stop: 05/05/23 20:59 Last Admin: 05/06/22 08:26 Dose: 30 mg Ondansetron HCl (Ondansetron 4 Mg/2 Ml Vial) 4 mg IV-PUSH Q6H PRN PRN Reason: Nausea And Vomiting Stop: 05/05/23 16:35 Pantoprazole Sodium (Pantoprazole 40 Mg Tablet.Dr) 40 mg PO DAILY [facility] Stop: 05/06/23 08:59 Last Admin: 05/06/22 08:26 [...] % (Auto) 89.9, Lymph % (Auto) 2.5, [place] % (Auto) 7.1, Eos % (Auto) 0.2, Baso % (Auto) 0.3, Nucleat RBC Rel Count 0.1, Neut # (Auto) 10.3 H, Lymph # (Auto) 0.3 L, [place] # (Auto) 0.8, Eos # (Auto) 0.0, [...] % (Auto) 90.3, Lymph % (Auto) 3.2, [place] % (Auto) 6.3, Eos % (Auto)0.2, Baso % (Auto) 0.0, Nucleat RBC Rel Count 0.1, Neut # (Auto) 10.7 H, Lymph #(Auto) 0.4 L, [place] # (Auto) 0.8, Eos # (Auto) 0.0, [...] infections. Documented By: Sohan Kellogg MD 05/06/22 1656 Signed By: <Electronically signed by MD Sohan Kellogg> 05/06/22 1701 [facility] Work Phone: [phone] Consult note Author Yvonne Barboza [facility] May 06, 2022 11:39am Note Date/Time May 06, 2022 11:33am [facility] [address] [place] [address] Nephrology Consult Note Signed Patient: Gopal Yates Jr MR#: [id number] : 1965 Acct:[id number] Age/Sex: 56 / M Adm Date: 3 Loc: 4N Room: [address] [place] [address] Type: ADM IN Attending Dr: Cornelio Simon [...] hypertension, anemia, dyslipidemia was sent by the back sewer for worsening right foot ulcer with concern [...] 81 Mg Tablet.) 81 mg PO DAILY [facility] Stop: 05/06/23 08:59 Last Admin: 05/06/22 08:25 Dose: 81 mg Bumetanide (Bumetanide 2 Mg Tablet) 2 mg PO DAILY [facility] Stop: 05/06/23 08:59 Last Admin: 05/06/22 08:26 Dose: 2 mg Carvedilol (Carvedilol 12.5 Mg Tablet) 25 mg PO BID [facility] Stop: 05/05/23 20:59 Last Admin: 05/06/22 08:26 Dose: 25 mg Clopidogrel Bisulfate (Clopidogrel Bisulfate 75 Mg Tablet) 75 mg PO DAILY [facility] Stop: 05/06/23 08:59 Last Admin: 05/06/22 08:26 Dose: 75 mg Dextrose (Dextrose 50% In Water 25 Gm/50 Ml Syringe) 0 gm IV-PUSH PRN PRN PRN Reason: Hypoglycemia Stop: 05/05/23 16:33 Ezetimibe (Ezetimibe 10 Mg Tablet) 10 mg PO DAILY [facility] Stop: 05/06/23 08:59 Last Admin: 05/06/22 08:26 Dose: 10 mg Ferrous Sulfate (Ferrous Sulfate 324 Mg Tablet.Dr) 324 mg PO DAILY [facility] Stop: 05/06/23 08:59 Last Admin: 05/06/22 08:25 Dose: 324 mg Glucose (Dextrose 40% Gel 15 Gm Tube) 0 gm PO PRN PRN PRN Reason: Hypoglycemia Stop: 05/05/23 16:33 Heparin Sodium (Porcine) (Heparin 5,000 Unit/Ml Vial) 5,000 unit SUBCUT Q8HR [facility] Stop: 05/06/23 21:59 Hydralazine HCl (Hydralazine 50 Mg Tablet) 50 mg PO TID [facility] Stop: 05/05/23 21:59 Last Admin: 05/06/22 08:26 Dose: 50 mg Magnesium Sulfate (Magnesium Sulf 2gm-*Swfi*) 2 gm in 50 mls @ 25 mls/hr IV DAILY PRN PRN Reason: Magnesium Level < 1.7 Stop: 05/05/23 16:35 Ceftaroline Fosamil 300 mg/ (Sodium Chloride) 100 mls @ 200 mls/hr IV Q12H [facility] Stop: 05/06/23 04:59 Last Admin: 05/06/22 05:28 Dose: 200 mls/hr Sodium Bicarbonate 150 meq/ (Sterile Water) 1,150 mls @ 100 mls/hr IV .[id number] [facility] Stop: 05/07/22 10:29 Insulin Aspart (Insulin Aspart 300 Units/3 Ml Insuln.Pen) 0 units SUBCUT TID.WM.HS [facility]; Protocol Stop: 05/05/23 16:59 Last Admin: 05/06/22 08:25 Dose: Not Given Insulin Glargine (Insulin Glargine 300 Units/3 Ml Insuln.Pen) 16 units SUBCUT QAM [facility] Stop: 05/06/23 08:59 Last Admin: 05/06/22 08:26 Dose: Not Given Isosorbide Dinitrate (Isosorbide Dinitrate 10 Mg Tablet) 10 mg PO TID [facility] Stop: 05/05/23 21:59 Last Admin: 05/06/22 08:26 Dose: 10 mg Levothyroxine Sodium (Levothyroxine 100 Mcg Tablet) 100 mcg PO DAILY@0630 [facility] Stop: 05/06/23 06:29 Last Admin: 05/06/22 05:30 Dose: 100 mcg Multivitamins (Multivitamin 1 Tab Tablet) 1 tab PO DAILY [facility] Stop: 05/06/23 08:59 Last Admin: 05/06/22 08:26 Dose: 1 tab Nifedipine (Nifedipine Er.24hr 30 Mg Tab.Er.24) 30 mg PO BID [facility] Stop: 05/05/23 20:59 Last Admin: 05/06/22 08:26 Dose: 30 mg Ondansetron HCl (Ondansetron 4 Mg/2 Ml Vial) 4 mg IV-PUSH Q6H PRN PRN Reason: Nausea And Vomiting Stop: 05/05/23 16:35 Pantoprazole Sodium (Pantoprazole 40 Mg Tablet.Dr) 40 mg PO DAILY [facility] Stop: 05/06/23 08:59 Last Admin: 05/06/22 08:26 [...] (1,000 Units) Tablet) 50 mcg PO DAILY [facility] Stop: 05/06/23 08:59 Last Admin: 05/06/22 08:26 [...] visible mass Skin: No rashes or bruises [employer]: Awake,Alert, 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 Musculoskeletal: No joint [...] Nathan Estes M.D.05/05/2022 12:26 PM Dictation Location: [place] [address] Foot MRI 05/05/22 16:41 IMPRESSION: SLIGHT LIMITED STUDY DUE TO MOTION AND ABSENCE OF CONTRAST. SIGNAL CHANGES INVOLVING THE FIFTH METATARSAL AND PROXIMAL PHALANX OF THE FIFTH TOE, SUSPICIOUS FOR OSTEOMYELITIS GIVEN THE PRESENCE OF AN ADJACENT SKIN ULCER. Impression dictated by: Tana Perry M.D.05/06/2022 8:46 AM Dictation Location: [place] [address] Any impression(s) listed above is documentation that [...] <Electronically signed by Yvonne Barboza MD> 05/06/22 1133 [facility] Work Phone: [phone] Consult note Author Ashutosh Thomas [facility] May 06, 2022 11:35am Note Date/Time May 06, 2022 11:35am [facility] [address] [place] [address] Infect. 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 Patient apparently had a callus on this lateral aspect of his foot for quite some time and stated he shown day and noted was bleeding. He gone to his primary care doctors and with the wound clinic. That is where Dr. Rivera came into the picture and had prescribed some outpatient oral antibiotics for which the patient did indeed take. He had been on doxycycline and Keflex. Unfortunately the wound continue to progress and turned black. Patient developed fevers and chills patient. Patient has known kidney disease and giventhis concern he came to [facility] to be further evaluated. MRI was performed [...] negative unless noted below or in HPI REPLACED BY [facility] Attestation Statement: The following information was validated [...] 81 Mg Tablet.) 81 mg PO DAILY [facility] Stop: 05/06/23 08:59 Last Admin: 05/06/22 08:25 Dose: 81 mg Bumetanide (Bumetanide 2 Mg Tablet) 2 mg PO DAILY [facility] Stop: 05/06/23 08:59 Last Admin: 05/06/22 08:26 Dose: 2 mg Carvedilol (Carvedilol 12.5 Mg Tablet) 25 mg PO BID [facility] Stop: 05/05/23 20:59 Last Admin: 05/06/22 08:26 Dose: 25 mg Clopidogrel Bisulfate (Clopidogrel Bisulfate 75 Mg Tablet) 75 mg PO DAILY [facility] Stop: 05/06/23 08:59 Last Admin: 05/06/22 08:26 Dose: 75 mg Dextrose (Dextrose 50% In Water 25 Gm/50 Ml Syringe) 0 gm IV-PUSH PRN PRN PRN Reason: Hypoglycemia Stop: 05/05/23 16:33 Ezetimibe (Ezetimibe 10 Mg Tablet) 10 mg PO DAILY [facility] Stop: 05/06/23 08:59 Last Admin: 05/06/22 08:26 Dose: 10 mg Ferrous Sulfate (Ferrous Sulfate 324 Mg Tablet.) 324 mg PO DAILY [facility] Stop: 05/06/23 08:59 Last Admin: 05/06/22 08:25 Dose: 324 mg Glucose (Dextrose 40% Gel 15 Gm Tube) 0 gm PO PRN PRN PRN Reason: Hypoglycemia Stop: 05/05/23 16:33 Heparin Sodium (Porcine) (Heparin 5,000 Unit/Ml Vial) 5,000 unit SUBCUT Q8HR [facility] Stop: 05/06/23 21:59 Hydralazine HCl (Hydralazine 50 Mg Tablet) 50 mg PO TID [facility] Stop: 05/05/23 21:59 Last Admin: 05/06/22 08:26 Dose: 50 mg Magnesium Sulfate (Magnesium Sulf 2gm-*Swfi*) 2 gm in 50 mls @ 25 mls/hr IV DAILY PRN PRN Reason: Magnesium Level < 1.7 Stop: 05/05/23 16:35 Ceftaroline Fosamil 300 mg/ (Sodium Chloride) 100 mls @ 200 mls/hr IV Q12H [facility] Stop: 05/06/23 04:59 Last Admin: 05/06/22 05:28 Dose: 200 mls/hr Sodium Bicarbonate 150 meq/ (Sterile Water) 1,150 mls @ 100 mls/hr IV .[id number] [facility] Stop: 05/07/22 10:29 Insulin Aspart (Insulin Aspart 300 Units/3 Ml Insuln.Pen) 0 units SUBCUT TID.WM.HS [facility]; Protocol Stop: 05/05/23 16:59 Last Admin: 05/06/22 08:25 Dose: Not Given Insulin Glargine (Insulin Glargine 300 Units/3 Ml Insuln.Pen) 16 units SUBCUT QAM [facility] Stop: 05/06/23 08:59 Last Admin: 05/06/22 08:26 Dose: Not Given Isosorbide Dinitrate (Isosorbide Dinitrate 10 Mg Tablet) 10 mg PO TID [facility] Stop: 05/05/23 21:59 Last Admin: 05/06/22 08:26 Dose: 10 mg Levothyroxine Sodium (Levothyroxine 100 Mcg Tablet) 100 mcg PO DAILY@0630 [facility] Stop: 05/06/23 06:29 Last Admin: 05/06/22 05:30 Dose: 100 mcg Multivitamins (Multivitamin 1 Tab Tablet) 1 tab PO DAILY [facility] Stop: 05/06/23 08:59 Last Admin: 05/06/22 08:26 Dose: 1 tab Nifedipine (Nifedipine Er.24hr 30 Mg Tab.Er.24) 30 mg PO BID [facility] Stop: 05/05/23 20:59 Last Admin: 05/06/22 08:26 Dose: 30 mg Ondansetron HCl (Ondansetron 4 Mg/2 Ml Vial) 4 mg IV-PUSH Q6H PRN PRN Reason: Nausea And Vomiting Stop: 05/05/23 16:35 Pantoprazole Sodium (Pantoprazole 40 Mg Tablet.Dr) 40 mg PO DAILY [facility] Stop: 05/06/23 08:59 Last Admin: 05/06/22 08:26 [...] Acute Plan No cultures apparently done at [place]. Cultures here are pending. Given patient's creatinine clearance agree with Teflaro for now empirically while we await culture results. Podiatry to see the patient and determine surgical plan. Length and route of antibiotics to be determined after surgical intervention. 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 He then presented to Dr. Rivera of podiatry, and patient has been maintained on doxycycline and Keflex as an outpatient and topical wound care at [facility] to help heal the wound. Patient was following up with Dr. Rivera in clinic on the day of hospitalization, and was sent into the emergency department due to worsening of the ulcer. Of note, patient with worsening renalfunction chronically and is currently being worked up for peritoneal dialysis. He was to have evaluation with Dr. Kellogg on 05/11/2022 for peritoneal dialysis catheter placement. He was recommended to come to [facility] due to nephrology support perioperatively. In [...] % (Auto) 2.5 % (.) 05/06/22 05:01 [place] % (Auto) 7.1 % (.) 05/06/22 05:01 Eos % (Auto) 0.2 % (.) 05/06/22 05:01 Baso % (Auto) 0.3 % (.) 05/06/22 05:01 Nucleat RBC Rel Count 0.1 /100 WBC (0-0.5) 05/06/22 05:01 Neut # (Auto) 10.3 x10E3/uL (1.8-7.7) H 05/06/22 05:01 Lymph # (Auto) 0.3 x10E3/uL (1.00-4.8) L 05/06/22 05:01 [place]elfair # (Auto) 0.8 x10E3/uL (0.0-0.8) 05/06/22 05:01 [...] Diabetic foot ulcer Patient presents from his back sewer office with worsening right foot ulcer overthe past 3 weeks. Patient did spike fever overnight and does have borderline elevated WBC. ESR and CRP are elevated. MRI was performed yesterday and does confirm evidence of osteomyelitis on the fifth metatarsal. Patient normally follows up with Dr. Rivera at [facility], but I am informed that [...] their recommendations -Continue Bumex CAD status post WI/stent x1 HFpEF Hyperlipidemia Hypertension Patient has no [...] code Documented By: Cornelio Simon MD 3 [id number] Signed By: <Electronically signed by Cornelio Simon MD> 05/06/22 [address] [facility] Work Phone: [phone] 707-872002-14-2023 NotePROCEDURE: XR FOOT RT MIN 3 VIEWS [...] Electronically authenticated by: FIDEL GONGORA Date: 2022-05-05 07:29[facility]01-26-2023 NoteHNO ID: [id number] Author: Monik Dotson APRN.ACCT EXEC Service: ? Author Type: Nurse Practitioner Type: Progress Notes Filed: 04/16/2022 3:56 PM Note Text: NAME: Nicolás Gopal CLINIC NO.: [id number] DATE OF SERVICE: April 16, 2022 (Imer) Some elements in this clinic note that are critical to medical decision making have been carefully reviewed and included from a prior clinic note dated: February 18, 2022. (Dr. Rojas) Referring Provider: Dr. Douglas Juárez Additional Clinicians involved in Gopal Nicolás 's care: DIAGNOSIS: Elevated [place]: Lambda light chains CKD induced anemia ASSESSMENT: [...] bruising. 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 Overall, he is doing [...] completed 5 doses of IV iron at [facility]. Initial Visit, October 02, 2021: Gopal Yates [...] daily with breakfast. hydrALAZIN (more content not included)...[facility]01-26-2023 History of Present illness Narrative* Monik Dotson APRN.ACCT EXEC - 04/16/2022 2:56 PM EST Images from the original note were not included. NAME: Gopal Yates [facility] NO.: [id number] DATE OF SERVICE: April 16, 2022 (Imer) Some elements in this clinic note that are critical to medical decision making have been carefully reviewed and included from a prior clinic note dated: February 18, 2022. (Dr. Rojas) Referring Provider: Dr. Douglas Juárez Additional Clinicians involved in Gopal Yates JR's care: DIAGNOSIS: Elevated [place]: Lambda light chains CKD induced anemia ASSESSMENT: [...] abnormal bruising.He is scheduled to see his outdoor illuminating engineer in March 2022. Overall, he is doing [...] completed 5 doses of IV iron at [facility]. Initial Visit, October 02, 2021: Gopal Yates [...] APRN.CNP Hematology and Oncology Services Provided at: [place], [place] CC: Dr. Douglas Juárez [address] [facility] [address] I spent a total of 30 minutes on the date of the service which included preparing to see the patient, [id number] patient care, completing clinical documentation, obtaining and/or reviewing separately obtained history, performing a medically appropriate examination, counseling and educating the pat ient/family/caregiver, ordering medications, tests, or procedures, independently interpreting results (not separately reported), and communicating results to the patient/family/caregiver. documented in this encounterTrihealth [facility]01-[facility] Evaluation note* Encounter Date Diagnosis Assessment Notes Treatment Notes Treatment Clinical Notes Mar, CKD (chronic kidney disease) stage 4, GFR 15-29 ml/min (ICD-10 - N18.4) [employer] Other [id number] Evaluation note* Encounter Date Diagnosis Assessment Notes [...] No fluid overload. No need for urgent GUARD MUSEUM DM is well contrlled BP is well [...] to take OTC VD 2000 U daily [employer] Other 11-30-2022 NoteHNO ID: [id number] Author: Conrad Rojas MD Service: ? Author Type: Physician Type: Progress Notes Filed: 02/21/2022 5:24 PM Note Text: NAME: Gopal Yates [facility] NO.: [id number] DATE OF SERVICE: February 18, 2022 (Bob) Some elements in this clinic note that are critical to medical decision making have been carefully reviewed and included from a prior clinic note dated:January 14, 2022 (Imer) Referring Provider: Dr. Douglas Juárez Additional Clinicians involved in Gopal Yates JR's care: DIAGNOSIS: Elevated [place]: Lambda light chains CKD induced anemia ASSESSMENT: [...] bruising. 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 Overall, he is doing [...] completed 5 doses of IV iron at [facility]. Initial Visit, October 02, 2021: Gopal Yates [...] by mouth once d (more content not included)...[facility]10-26-2022 NoteHNO ID: [id number] Author: Monik Dotson APRN.[facility] Service: ? Author Type: Nurse Practitioner Type: Progress Notes Filed: 01/16/2022 4:13 PM Note Text: NAME: Gopal Yates CLINIC NO.: [id number] DATE OF SERVICE: January 14, 2022 (Imer) [...] to Holiday) 3. Will obtain records from [facility] mainly interested in IV Iron dates. CURRENT [...] bruising. 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 Overall, he is doing [...] completed 5 doses of IV iron at [facility]. Initial Visit, October 02, 2021: Gopal Yates presents today Hematology and Oncology evaluation. He [...] (%) Date Value 12/21 (more content not included)...[facility]10-26-2022 Nurse Note* Harriet Childress MA - 01/14/2022 2:24 PM EDT Patient states he is tired and cold all the time. He states that the infusions don't seem to help but the shot he gets here does. Harriet Childress MA documented in this encounterTrihealth M[facility]10-26-2022 History of Present illness Narrative* Monik Dotson APRN.AILYN - 01/14/2022 2:05 PM EDT Images from the original note were not included. NAME: Nicolás, Gopal CLINIC NO.: [id number] DATE OF SERVICE: January 14, 2022 (Imer) [...] to Holiday) 3. Will obtain records from [facility] mainly interested in IV Iron dates. CURRENT [...] abnormal bruising.He is scheduled to see his outdoor illuminating engineer in March 2022. Overall, he is doing [...] completed 5 doses of IV iron at [facility]. Initial Visit, October 02, 2021: Gopal Yates [...] disease Father Mental illness Father Monik Dotson APRN.ACCT EXEC Hematology and Oncology Services Provided at: [place], [place] CC: Dr. Douglas Juárez [id number] Douglas Juárez [address] [id number] documented in this encounterTrihealth M[facility]10-11-2022 Evaluation note* Encounter Date Diagnosis Assessment Notes Treatment Notes Treatment Clinical Notes Dec, Iron deficiency anemia (ICD-10 - D50.9) reviewed recent labs with patient. patient is encouraged to continue to follow [facility] Dr. do not need to proceed with Colon at this time. Dec, Phlegm in throat (ICD-10 - R09.89) patient states Mucinex oes seem to help this we will refer to pulmonology. Cicero payasUgym Other 09-28-2022 NoteHNO ID: [id number] Author: Conrad Rojas MD Service: ? Author Type: Physician Type: Progress Notes Filed: 12/17/2021 4:03 PM Note Text: NAME: Gopal Yates CLINIC NO.: [id number] DATE OF SERVICE: December 17, 2021 (Bob) Some elements in this clinic note that [...] possible Aranesp. 3. Will obtain records from [facility] mainly interested in IV Iron dates. CURRENT [...] completed 5 doses of IV iron at [facility]. Initial Visit, October 02, 2021: Gopal Yates [...] mellitus (HCC) Edema Hypothyroidism (more content not included)...[facility] 12-17-2021 Instructions* Patient Instructions* Conrad Rojas MD - 12/17/2021 2:37 PM EDT 1. No Aranesp today. 2. Follow up in weeks for labs and possible Aranesp. documented in this encounterTrihealth M[facility]09-28-2022 History of Present illness Narrative* Conrad Rojas MD - 12/17/2021 2:33 PM EDT Images from the original note were not included. NAME: Gopal Yates CLINIC NO.: [id number] DATE OF SERVICE: December 17, 2021 (Bob) Some elements in this clinic note that [...] possible Aranesp. 3. Will obtain records from [facility] mainly interested in IV Iron dates. CURRENT [...] completed 5 doses of IV iron at [facility]. Initial Visit, October 02, 2021: Gopal Yates [...] which included preparing to see the patient, [id number] patient care, completing clinical documentation, performing a medically appropriate examination, counseling and educating the patient/family/caregiver, and ordering medications, tests,or procedures. Conrad Rojas MD, CPE Hematology and Oncology Services Provided at: [place], [place] CC: Dr. Douglas Juárez [address] [address] [address] Douglas Juárez [address] [phone] documented in this encounterTrihealth Mcc[facility]09-20-2022 Evaluation note* Encounter Date Diagnosis Assessment Notes Treatment Notes Treatment Clinical Notes Nov, CKD (chronic kidney disease) stage 4, GFR 15-29 ml/min (ICD-10 - N18.4) He has advanced CKD stage IV . CKD is likely from diabetic s and cardiorenal syndrome. Serum creatinine has been around 3.5-3.9 mg/dl. GFR this visit 17 ml/min no ileana uremic symptoms . No need for urgent GUARD MUSEUM DM is well contrlled BP is well [...] pain status post PCI of RCA at [place] in [place]. Nov, Anemia of renal disease (ICD-10 - D63.1) patient received 2 loading doses of venofer in the last 2 visits. patient is currently on CAROL . last HGB > 11 g/dl Nov, Other I will check CB C next visit along with iron storage [employer] Other 09-15-2022 Miscellaneous Notes* Telephone Encounter - Monik Dotson APRN.CNP - 12/04/2021 11:47 AM EDT Thanks! Monik Dotson APRN.CNP * Telephone Encounter - Dana An - 12/04/2021 10:15 AM EDT Brionna from [facility] infusion center called back regarding patients iron infusions. She said he got 2 sets of 5 doses. Dates of infusion are: 07/22/21, 07/31/21, 08/06/21, 08/13/21, 08/20/21 10/20/21, 10/27/21, 11/03/21, 11/10/21, 11/17/21 documented in this encounterTrihealth M[facility]09-14-2022 NoteHNO ID: [id number] Author: Monik Dotson APRN.CNP Service: ? Author Type: Nurse Practitioner Type: Progress Notes Filed: 12/03/2021 2:17 PM Note Text: NAME: NicolásGopal [facility] NO.: [id number] DATE OF SERVICE: December 03, 2021 Referring [...] possible Aranesp. 3. Will obtain records from [facility] mainly interested in IV Iron dates. CURRENT [...] completed 5 doses of IV iron at [facility]. Initial Visit, October 02, 2021: Gopal Yates [...] Topics Alcohol use: Not (more content not included)...[facility] 12-03-2021 History of Present illness Narrative* Moink Dotson APRN.ACCT EXEC - 12/03/2021 2:00 PM EDT Images from the original note were not included. NAME: Gopal Yates CLINIC NO.: [id number] DATE OF SERVICE: December 03, 2021 Referring [...] possible Aranesp. 3. Will obtain records from [facility] mainly interested in IV Iron dates. CURRENT [...] completed 5 doses of IV iron at [facility]. Initial Visit, October 02, 2021: Gopal Yates [...] disease Father Mental illness Father Monik Dotson APRN.AILYN Hematology and Oncology Services Provided at: [place], [place] CC: Dr. Douglas Juárez [address] [facility] [address] [address] Douglas Juárez [address] [facility] [id number] documented in this encounterTrihealth Mcc[facility]07-28-2022 NoteHNO ID: [id number] Author: Conrad Rojas MD Service: ? Author [...] CPE Hematology and Oncology Services Provided at: [place], [place] CC: Douglas Juárez MD [address] [facility] [address]NrkacihofTrinity Health [facility]07-28-[facility]22 History of Present illness Narrative* Conrad Rojas MD - 10/16/2021 4:44 PM EDT Images from the original note were not included. AMBULATORY TELEPHONE VISIT Gopal Nicolás PERKINS has consented to this telephone encounter. Persons [...] CPE Hematology and Oncology Services Provided at: [place], [place] CC: Douglas Juárez MD [address] [facility] [address] documented in this encounterTrihealth Mcc[facility]07-14-2022 NoteHNO ID: [id number] Author: Conrad Rojas MD Service: ? Author Type: Physician Type: Progress Notes Filed: 10/08/2021 9:04 PM Note Text: NAME: Gopal Yates [facility] NO.: [id number] DATE OF SERVICE: October 02, 2021 Referring [...] Date Value 10/02/2021 0.00 (more content not included)...[facility]07-14-2022 History of Present illness Narrative* Conard Rojas MD - 10/02/2021 4:00 PM EDT Images from the original note were not included. NAME: DuluthGopal ross [facility] NO.: [id number] DATE OF SERVICE: October 02, 2021 Referring [...] which included preparing to see the patient, [id number] patient care, completing clinical documentation, obtaining and/or reviewing separately obtained history, performing a medically appropriate examination, counseling and educating the pat ient/family/caregiver and ordering medications, tests, or procedures. Conrad Rojas MD, CPE Hematology and Oncology Services Provided at: [place], [place] CC: Douglas Juárez MD [address] [facility] [address] Douglas Juárez MD, MD [address] [facility] [id number] documented in this encounterTrihealth [facility]07-06-2022 Evaluation note* Encounter Date Diagnosis Assessment Notes Treatment Notes Treatment Clinical Notes Sep, CKD (chronic kidney disease) stage 4, GFR 15-29 ml/min (ICD-10 - N18.4) He has advanced CKD stage IV . CKD is likely from diabetic s and cardiorenal syndrome. Serum creatinine has been around 3.5-3.9 mg/dl. GFR this visit 16 ml/min no ileana uremic symptoms . No need for urgent fuel agent DM is well contrlled Volume is well [...] pain status post PCI of [place]CA [place]. Sep, Anemia of renal disease [...] C next visit along with iron storage [employer] Other 04-26-2022 Evaluation note* Encounter Date Diagnosis [...] pain status post PCI of RCA at [place] in [place]. Jun, Anemia of renal disease (ICD-10 - D63.1) Hemoglobin below g/dL. Iron saturation 23%. I will start the patient on Venofer 200 mg injection weekly for 4 weeks Jun, Other I will check CB C next visit along with iron storage [employer] Other 03-15-2022 Evaluation note* Encounter Date Diagnosis [...] pain status post PCI of RCA at [place] in [place]. May, Anemia of renal disease (ICD-10 - D63.1) Patient has anemia on oral iron. No CBC is available. Will order CBC with next blood work. May, Other I will check CB C next visit along with iron storage [employer] Other Consult note Author Ashutosh Thomas [facility] May 21, 2022 10:40am Note Date/Time May 21, 2022 10:0 4am [facility] [address] [place] [address] Infect. Disease Consult Note Signed Patient: Gopal Yates Jr MR#: [id number] : 1965 Acct:[id number] Age/Sex: 56 / M Adm Date: 3 Loc: Room: [address] [place] [address] Type: ADM IN Attending Dr: Salvador Alonso [...] sent to the ED yesterday by his back sewer, Dr. Griggs, because his right foot wound continued to show signs of infection. The patient recently had resection of his right fifth digit on 05/07 and completed a 10-day course of Augmentin. The patient states that his wound continued to drain after the operation and that his back sewer has scheduled surgery for today. He continues on IV vancomycin, which was started in the ED. The patient has past medical history significant for CKD stage 5 for which he isscheduled to start dialysis and have a PD catheter placed next week, CAD post?[place], HFpEF, hypertension, hyperlipidemia, insulin-dependent T2DM, and hypothyroidism. [...] 2 Mg Tablet) 2 mg PO DAILY [facility] Stop: 05/21/23 08:59 Last Admin: 05/21/22 08:00 Dose: Not Given Carvedilol (Carvedilol 12.5 Mg Tablet) 37.5 mg PO BID.WITH.MEALS [facility] Stop: 05/20/23 16:59 Last Admin: 05/21/22 07:52 Dose: 37.5 mg Cyproheptadine HCl (Cyproheptadine 4 Mg Tablet) 4 mg PO DAILY [facility] Stop: 05/21/23 08:59 Last Admin: 05/21/22 08:00 Dose: Not Given Ezetimibe (Ezetimibe 10 Mg Tablet) 10 mg PO DAILY [facility] Stop: 05/21/23 08:59 Last Admin: 05/21/22 08:00 Dose: Not Given Hydralazine HCl (Hydralazine 50 Mg Tablet) 50 mg PO TID [facility] Stop: 05/20/23 13:59 Last Admin: 05/21/22 08:00 Dose: Not Given Sodium Chloride (0.9 % Sodium Chloride) 500 mls @ 20 mls/hr IV PROTOCOL PRN PRN Reason: BLOOD TRANSFUSION Stop: 05/22/22 08:32 Insulin Glargine (Insulin Glargine 300 Units/3 Ml Insuln.Pen) 16 units SUBCUT QAM [facility] Stop: 05/21/23 08:59 Last Admin: 05/21/22 08:00 Dose: Not Given Isosorbide Dinitrate (Isosorbide Dinitrate 10 Mg Tablet) 10 mg PO TID [facility] Stop: 05/20/23 13:59 Last Admin: 05/21/22 08:00 Dose: Not Given Levothyroxine Sodium (Levothyroxine 100 Mcg Tablet) 100 mcg PO DAILY@0630 [facility] Stop: 05/21/23 06:29 Last Admin: 05/21/22 06:20 Dose: 100 mcg Liothyronine Sodium (Liothyronine 5 Mcg Tablet) 10 mcg PO DAILY [facility] Stop: 05/21/23 08:59 Last Admin: 05/21/22 08:00 Dose: Not Given Multivitamins (Multivitamin 1 Tab Tablet) 1 tab PO DAILY [facility] Stop: 05/21/23 08:59 Last Admin: 05/21/22 08:00 Dose: Not Given Nifedipine (Nifedipine Er.24hr 30 Mg Tab.Er.24) 30 mg PO BID [facility] Stop: 05/20/23 20:59 Last Admin: 05/21/22 08:01 Dose: Not Given Ondansetron HCl (Ondansetron 4 Mg/2 Ml Vial) 4 mg IV-PUSH Q8H PRN PRN Reason: Nausea And Vomiting Stop: 05/20/23 13:39 Oxycodone HCl (Oxycodone Ir 5 Mg Tablet) 5 mg PO Q6H PRN PRN Reason: Pain Scale 4 - 7 Pantoprazole Sodium (Pantoprazole 40 Mg Tablet.Dr) 40 mg PO BID [facility] Stop: 05/20/23 20:59 Last Admin: 05/21/22 08:01 Dose: Not Given Potassium Chloride (Potassium Chloride Er 20 Meq Tab.Er.Prt) 40 meq PO DAILY PRN PRN Reason: Hypokalemia Stop: 05/20/23 13:39 Sodium Bicarbonate (Sodium Bicarbonate 650 Mg Tablet) 1,300 mg PO BID [facility] Stop: 05/20/23 20:59 Last Admin: 05/21/22 08:01 [...] (1,000 Units) Tablet) 50 mcg PO DAILY [facility] Stop: 05/21/23 08:59 Last Admin: 05/21/22 08:00 [...] signed by MD Ashutosh Thomas> 05/21/22 [address] [facility] Work Phone: Consult note Author PHILLIP Luis [facility] May 21, 2022 12:02pm Note Date/Time May 21, 2022 11:5 8am [facility] [address] [place] [address] Podiatry Consult Note Signed Patient: Gopal Yates Jr MR#: [id number] : 1965 Acct:[id number] Age/Sex: 56 / M Adm Date: 3 Loc: Room: [address] [place] [address] Type: ADM IN Attending Dr: Salvadro Alonso MD Copies to: MD Douglas Boles [...] neuropathy, unspecified Documented By: Primo Luis,HARRY, , PHILLIP 05/14 1153 Signed By: <Electronically signed by HARRY Luis> 05/21/22 120 [facility] Work Phone: Consult note Author [facility] May 21, 2022 1:27pm Note Date/Time May 21, 2022 1:27 pm [facility] [address] [place] [address] Nephrology Consult Note Signed Patient: Gopal Yates Jr MR#: [id number] : 1965 Acct:[id number] Age/Sex: 56 / M Adm Date: 3 Loc: Room: [address] [place] [address] Type: ADM IN Attending Dr: Salvador Alonso [...] been following with hematology clinic here in [facility] for CAROL injection. Patient missed her last appointment. Hemoglobin this morning 7.7 g deciliter. Kidney function remains at baseline with today serum creatinine 5.2 mmol/L and GFR 11 mm/min. BUN 72. Potassium 4.0. Serum bicarb 20 Review of Systems Review of Systems Review of systems: 12 system review is negative [facility] for [facility]?: Yes Medical History [...] 2 Mg Tablet) 2 mg PO DAILY [facility] Stop: 05/21/23 08:59 Last Admin: 05/21/22 08:00 Dose: Not Given Carvedilol (Carvedilol 12.5 Mg Tablet) 37.5 mg PO BID.WITH.MEALS [facility] Stop: 05/20/23 16:59 Last Admin: 05/21/22 07:52 Dose: 37.5 mg Cyproheptadine HCl (Cyproheptadine 4 Mg Tablet) 4 mg PO DAILY [facility] Stop: 05/21/23 08:59 Last Admin: 05/21/22 08:00 Dose: Not Given Ezetimibe (Ezetimibe 10 Mg Tablet) 10 mg PO DAILY [facility] Stop: 05/21/23 08:59 Last Admin: 05/21/22 08:00 Dose: Not Given Hydralazine HCl (Hydralazine 50 Mg Tablet) 50 mg PO TID [facility] Stop: 05/20/23 13:59 Last Admin: 05/21/22 08:00 Dose: Not Given Sodium Chloride (0.9 % Sodium Chloride) 500 mls @ 20 mls/hr IV PROTOCOL PRN PRN Reason: BLOOD TRANSFUSION Stop: 05/22/22 08:32 Piperacillin Sod/Tazobactam Sod (Zosyn 2.25gm) 2.25 gm in 100 mls @ 200 mls/hr IV Q6H [facility] Last Admin: 05/21/22 11:18 Dose: 200 mls/hr Insulin Glargine (Insulin Glargine 300 Units/3 Ml Insuln.Pen) 16 units SUBCUT QAM [facility] Stop: 05/21/23 08:59 Last Admin: 05/21/22 08:00 Dose: Not Given Isosorbide Dinitrate (Isosorbide Dinitrate 10 Mg Tablet) 10 mg PO TID [facility] Stop: 05/20/23 13:59 Last Admin: 05/21/22 08:00 Dose: Not Given Levothyroxine Sodium (Levothyroxine 100 Mcg Tablet) 100 mcg PO DAILY@0630 [facility] Stop: 05/21/23 06:29 Last Admin: 05/21/22 06:20 Dose: 100 mcg Liothyronine Sodium (Liothyronine 5 Mcg Tablet) 10 mcg PO DAILY [facility] Stop: 05/21/23 08:59 Last Admin: 05/21/22 08:00 Dose: Not Given Multivitamins (Multivitamin 1 Tab Tablet) 1 tab PO DAILY [facility] Stop: 05/21/23 08:59 Last Admin: 05/21/22 08:00 Dose: Not Given Nifedipine (Nifedipine Er.24hr 30 Mg Tab.Er.24) 30 mg PO BID [facility] Stop: 05/20/23 20:59 Last Admin: 05/21/22 08:01 Dose: Not Given Ondansetron HCl (Ondansetron 4 Mg/2 Ml Vial) 4 mg IV-PUSH Q8H PRN PRN Reason: Nausea And Vomiting Stop: 05/20/23 13:39 Oxycodone HCl (Oxycodone Ir 5 Mg Tablet) 5 mg PO Q6H PRN PRN Reason: Pain Scale 4 - 7 Pantoprazole Sodium (Pantoprazole 40 Mg Tablet.Dr) 40 mg PO BID [facility] Stop: 05/20/23 20:59 Last Admin: 05/21/22 08:01 Dose: Not Given Potassium Chloride (Potassium Chloride Er 20 Meq Tab.Er.Prt) 40 meq PO DAILY PRN PRN Reason: Hypokalemia Stop: 05/20/23 13:39 Sodium Bicarbonate (Sodium Bicarbonate 650 Mg Tablet) 1,300 mg PO BID [facility] Stop: 05/20/23 20:59 Last Admin: 05/21/22 08:01 [...] (1,000 Units) Tablet) 50 mcg PO DAILY [facility] Stop: 05/21/23 08:59 Last Admin: 05/21/22 08:00 [...] Flynn Bradley M.D.05/21/2022 10:03 AM Dictation Location: [place] [address] Any impression(s) listed above is documentation that [...] been following with hematology clinic here in [facility]. Patient missed the last appointment. Patient is [...] signed by Cristobal Butts MD> 05/21/22 1327 [facility] Work Phone: Discharge summary Author Scotty Kahn [facility] May 25, 2022 5:23pm Note Date/Time May 25, 2022 10:3 0am [facility] [address] [place] [address] Discharge Summary Signed Patient: Gopal Yates Jr MR#: [id number] : 1965 Acct:[id number] Age/Sex: 56 / M Adm Date: 3 Loc: Room: [address] [place] [address]: Scotty Kahn DO Copies to: [...] of CKD stage 5, CAD status post [place], HFpEF, HTN, HLD, insulin-dependent DM type II, hypothyroidism was sent to the emergency department by his back sewer due to worsening right lateral foot ulcer. [...] % (Auto) 75.9, Lymph % (Auto) 9.2, [place] % (Auto) 10.5, Eos % (Auto) 3.4, Baso % (Auto) 1.0, Nucleat RBC Rel Count 0.0, Neut # (Auto) 5.8, Lymph # (Auto) 0.7 L, [place] # (Auto) 0.8, Eos # (Auto) 0.3, [...] Patient Ordered By: Ashutosh Thomas Follow Up: [facility] [Outside] - 05/27/22 2:30 pm [...] signed by DO NADIR Velez> 05/25/22 1558 [facility] Work Phone: Evaluation + Plan note No data available for this section [facility] [place] Evaluation note* Diagnosis Stage 3b chronic kidney disease (HCC)- Primary Anemia due to stage 3b chronic kidney disease (HCC) Elevated serum immunoglobulin free light chains Other nonspecific findings on examination of blood documented [facility] Diagnosis Anemia due to stage 3b chronic kidney disease (HCC)- Primary [facility] Diagnosis Anemia due to stage 3b chronic kidney disease (HCC)- Primary [facility] Diagnosis Anemia due to stage 3b chronic kidney disease (HCC)- Primary [facility]* Diagnosis Anemia due to stage 4 chronic kidney disease (HCC)- Primary [facility] Diagnosis Anemia due to stage 4 chronic kidney disease (HCC)- Primary [facility] Diagnosis Anemia due to stage 3b chronic kidney disease (HCC)- Primary Hypothyroidism, unspecified type [facility] Diagnosis Anemia due to stage 3b chronic kidney disease (HCC)- Primary [facility]* Diagnosis Anemia due to stage 3b chronic kidney disease (HCC)- Primary [facility] Diagnosis Anemia due to stage 3b chronic kidney disease (HCC)- Primary Hypothyroidism, unspecified type [facility]* Diagnosis Onset Date Resolution Status Osteomyelitis acute [facility] Work Phone: evaluation note* Diagnosis [...] right foot with necrosis of bone acute [facility] Work Phone: evaluation note* Diagnosis Onset [...] right foot with necrosis of bone acute [facility] Work Phone: evaluation note* Diagnosis Onset [...] right foot with necrosis of bone acute [facility] Work Phone: evaluation noteNo [employer] Other evaluation note* Diagnosis Onset Date Resolution [...] bone acute MARTHA (acute kidney injury) ac elem Anemia acute CKD (chronic kidney disease) stage 5, GFR less than 15 ml/min acute Fever acute History of fever acute Osteomyelitis acute [facility] Work Phone: Evaluation note* Diagnosis Onset [...] bone acute MARTHA (acute kidney injury) ac elem Anemia acute CKD (chronic kidney disease) stage [...] disease acute Ulcer of right foot acute [facility] Work Phone: Evaluation note* Diagnosis Onychomycosis- Primary Dermatophytosis of nail Corns and callosities 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/HCC) Type II or unspecified type diabetes mellitus with neurological manifestations, not stated as uncontrolled Peripheral vascular disease, unspecified ([facility]/HCC) Peripheral vascular disease, unspecified documented in this encounter [facility]* Diagnosis Onychomycosis- Primary Dermatophytosis of nail Corns and callosities 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/HCC) Type II or unspecified type diabetes mellitus with neurological manifestations, not stated as uncontrolled Status post amputation of foot, right ([facility]) documented in this encounter [facility]* [...] stated as uncontrolled Peripheral vascular disease, unspecified (CMS/HCC) Peripheral vascular disease, unspecified [facility] encounter [facility]* Diagnosis Onset Date Resolution Status Admit Date Loss of appetite acute July 1:23pm Nausea & vomiting acute July 1:23pm [facility] Work Phone: Evaluation note* Diagnosis Status post [...] HealthcareHistory and physical note Author Salvador Alonso [facility] May 20, 2022 2:43pm Note Date/Time May 20, 2022 1:50 pm [facility] [address] [place] [address] Hospitalist H&P Signed Patient: Gopal Yates Jr MR#: [id number] : 1965 Acct:[id number] Age/Sex: 56 / M Adm Date: 3 Loc: Room: [address] [place] [address] Type: ADM IN Attending Dr: Salvador Alonso MD Copies to: MD Douglas Boles MD~ HPI DATE OF EXAMINATION: 05/20/22 CHIEF COMPLAINT: osteomyelits HISTORY OF PRESENT ILLNESS: Mr. Yates is a 56yo M with PMH of CKD stage V, CAD status post [place], HFpEF, HTN, HLD, insulin-dependent DM type II, hypothyroidism was sent to the emergency department by his back sewer due to worsening right lateral foot ulcer. [...] % (Auto) 3.3 % (.) 05/20/22 11:35 [place] % (Auto) 8.7 % (.) 05/20/22 11:35 Eos % (Auto) 0.2 % (.) 05/20/22 11:35 Baso % (Auto) 0.8 % (.) 05/20/22 11:35 Nucleat RBC Rel Count 0.1 /100 WBC (0-0.5) 05/20/22 11:35 Neut # (Auto) 8.0 x10E3/uL (1.8-7.7) H 05/20/22 11:35 Lymph # (Auto) 0.3 x10E3/uL (1.00-4.8) L 05/20/22 11:35 [place] # (Auto) 0.8 x10E3/uL (0.0-0.8) 05/20/22 11:35 [...] <Electronically signed by Salvador Alonso MD> 05/20/22 1443 [facility] Work Phone: History general Narrative - Reported* Type Description Date [...] [place] 01/2020 Hospitalization History HYPERTENSION WITH [facility] 08/2019 [place] Other History general Narrative - Reported* Type Description Date [...] [place] 01/2020 Hospitalization History HYPERTENSION WITH [facility] 08/2019 [facility] Other Hospital Discharge instructions Additional Instructions Please leave dressing intact until you follow up with Dr. Griggs/Podiatry. [facility] Work Phone: Hospital Discharge instructions [...] 150 mmHg-- MWF Monitor glucose levels as before.[facility] Work Phone: Hospital Discharge instructions No data available for this section [facility] [place] Progress note Author Gopal Hardy [facility] May 08, 2022 6:31pm Note Date/Time May 08, 2022 6:26pm [facility] [address] [place] [address] Podiatry Progress Note Signed Patient: Gopal Yates Jr MR#: [id number] : 1965 Acct:[id number] Age/Sex: 56 / M Adm Date: 3 Loc: 4N Room: [address] [place] [address] Type: DIS IN Attending Dr: Cornelio Simon [...] under at the wound care center in [place] and x-rays were noted to have osteomyelitis. Due to his kidney function he was sent to [facility] as there is a concern for need for inpatient dialysis which is not available at [place]. Patient states that he has had some [...] that he will likely return to Dr. Rivera for at the [place] wound care center for the majority of his postop care. Dr. Griggs contacted Dr. Rivera to ensure that this is okay for the patient to follow- up postoperatively. Patient is advised to limit weightbearing activity is much as possible and wear his postop shoe for all weightbearing activity. He is to keep his bandage clean and dry. Recommend daily or every other day dressing changes initially and the patient states he will set this up with the [place] [facility]. Patient is advised to call [...] <Electronically signed by HARRY Hardy> 05/08/22 183 [facility] Work Phone: Progress note Author Salvador [facility] May 21, 2022 11:00pm Note Date/Time May 21, 2022 11:0 0pm [facility] [address] [place] [address] Hospitalist Progress Note Signed Patient: Gopal Yates Jr MR#: [id number] : 1965 Acct:[id number] Age/Sex: 56 / M Adm Date: 3 Loc: Room: [address] [place] [address] Type: ADM IN Attending Dr: Salvador Alonso [...] Tablet PO 05/20/23 16:59 Not Given BID.WITH.MEALS [facility] Cyproheptadine HCl 4 mg 05/21/22 09:00 05/21/22 [...] code Documented By: Salvador Alonso MD 05/21/22 7739 Signed By: <Electronically signed by Salvador Alonso MD> 05/21/22 8983 [facility] Work Phone: Progress note Author Eddy Griggs [facility] May 22, 2022 8:23am Note Date/Time May 22, 2022 8:18 am [facility] [address] [place] [address] Podiatry Progress Note Signed Patient: Gopal Yates Jr MR#: [id number] : 1965 Acct:[id number] Age/Sex: 56 / M Adm Date: 3 Loc: Room: [address] [place] [address] Type: ADM IN Attending Dr: Salvador Alonso [...] he would like to go to the [place] wound center in order to have dressing changes, but Ipersonally called after his last hospitalization and due to their short staffingthey were not offering this service at this time. I advised that if we are not able to find a HH agency, patient may need to come to [...] <Electronically signed by HARRY Griggs> 05/22/22 0823 [facility] Work Phone: Progress note Author Ashutosh Thomas [facility] May 22, 2022 12:21pm Note Date/Time May 22, 2022 12:2 1pm [facility] [address] [place] [address] Infect. Disease Progress Note Signed Patient: Gopal Yates Jr MR#: [id number] : 1965 Acct:[id number] Age/Sex: 56 / M Adm Date: 3 Loc: Room: [address] [place] [address] Type: ADM IN Attending Dr: Salvador Alonso [...] 2 Mg Tablet) 2 mg PO DAILY [facility] Stop: 05/21/23 08:59 Last Admin: 05/22/22 08:34 Dose: 2 mg Carvedilol (Carvedilol 12.5 Mg Tablet) 37.5 mg PO BID.WITH.MEALS [facility] Stop: 05/20/23 16:59 Last Admin: 05/22/22 08:34 Dose: 37.5 mg Cyproheptadine HCl (Cyproheptadine 4 Mg Tablet) 4 mg PO DAILY [facility] Stop: 05/21/23 08:59 Last Admin: 05/22/22 08:33 Dose: 4 mg Ezetimibe (Ezetimibe 10 Mg Tablet) 10 mg PO DAILY [facility] Stop: 05/21/23 08:59 Last Admin: 05/22/22 08:34 Dose: 10 mg Hydralazine HCl (Hydralazine 50 Mg Tablet) 50 mg PO TID [facility] Stop: 05/20/23 13:59 Last Admin: 05/22/22 08:34 Dose: 50 mg Piperacillin Sod/Tazobactam Sod (Zosyn 2.25gm) 2.25 gm in 100 mls @ 200 mls/hr IV Q6H [facility] Last Admin: 05/22/22 11:31 Dose: 200 mls/hr Lactated Ringer's (Lactated Ringers) 1,000 mls @ 20 mls/hr IV .Q24H ONE Stop: 05/22/22 13:54 Last Admin: 05/21/22 15:44 Dose: 20 mls/hr Vancomycin HCl 1.25 gm/ (Dextrose) 275 mls @ 183.333 mls/hr IV ONCE ONE Stop: 05/22/22 12:59 Insulin Glargine (Insulin Glargine 300 Units/3 Ml Insuln.Pen) 16 units SUBCUT QAM [facility] Stop: 05/21/23 08:59 Last Admin: 05/22/22 08:34 Dose: 16 units Isosorbide Dinitrate (Isosorbide Dinitrate 10 Mg Tablet) 10 mg PO TID [facility] Stop: 05/20/23 13:59 Last Admin: 05/22/22 08:34 Dose: 10 mg Levothyroxine Sodium (Levothyroxine 100 Mcg Tablet) 100 mcg PO DAILY@0630 [facility] Stop: 05/21/23 06:29 Last Admin: 05/22/22 06:05 Dose: 100 mcg Liothyronine Sodium (Liothyronine 5 Mcg Tablet) 10 mcg PO DAILY [facility] Stop: 05/21/23 08:59 Last Admin: 05/22/22 08:33 Dose: 10 mcg Multivitamins (Multivitamin 1 Tab Tablet) 1 tab PO DAILY [facility] Stop: 05/21/23 08:59 Last Admin: 05/22/22 08:33 Dose: 1 tab Nifedipine (Nifedipine Er.24hr 30 Mg Tab.Er.24) 30 mg PO BID [facility] Stop: 05/20/23 20:59 Last Admin: 05/22/22 08:34 [...] (1,000 Units) Tablet) 50 mcg PO DAILY [facility] Stop: 05/21/23 08:59 Last Admin: 05/22/22 08:33 [...] signed by MD Ashutosh Thomas> 05/22/22 1221 [facility] Work Phone: Progress note Author Ceciliomaryuri Butts [facility] May 22, 2022 1:15pm Note Date/Time May 22, 2022 1:16 pm [facility] [address] [place] [address] Nephrology Progress Note Signed Patient: Gopal Yates Jr MR#: [id number] : 1965 Acct:[id number] Age/Sex: 56 / M Adm Date: 3 Loc: Room: [address] [place] [address] Type: ADM IN Attending Dr: Salvador Alonso [...] been following with hematology clinic here in [facility] for CAROL injection. Patient missed her last [...] 2 Mg Tablet) 2 mg PO DAILY [facility] Stop: 05/21/23 08:59 Last Admin: 05/22/22 08:34 Dose: 2 mg Carvedilol (Carvedilol 12.5 Mg Tablet) 37.5 mg PO BID.WITH.MEALS [facility] Stop: 05/20/23 16:59 Last Admin: 05/22/22 08:34 Dose: 37.5 mg Cyproheptadine HCl (Cyproheptadine 4 Mg Tablet) 4 mg PO DAILY [facility] Stop: 05/21/23 08:59 Last Admin: 05/22/22 08:33 Dose: 4 mg Ezetimibe (Ezetimibe 10 Mg Tablet) 10 mg PO DAILY [facility] Stop: 05/21/23 08:59 Last Admin: 05/22/22 08:34 Dose: 10 mg Hydralazine HCl (Hydralazine 50 Mg Tablet) 50 mg PO TID [facility] Stop: 05/20/23 13:59 Last Admin: 05/22/22 08:34 Dose: 50 mg Piperacillin Sod/Tazobactam Sod (Zosyn 2.25gm) 2.25 gm in 100 mls @ 200 mls/hr IV Q6H [facility] Last Admin: 05/22/22 11:31 Dose: 200 mls/hr Lactated Ringer's (Lactated Ringers) 1,000 mls @ 20 mls/hr IV .Q24H [facility] Stop: 05/22/22 13:54 Last Admin: 05/21/22 15:44 Dose: 20 mls/hr Insulin Glargine (Insulin Glargine 300 Units/3 Ml Insuln.Pen) 16 units SUBCUT QAM [facility] Stop: 05/21/23 08:59 Last Admin: 05/22/22 08:34 Dose: 16 units Isosorbide Dinitrate (Isosorbide Dinitrate 10 Mg Tablet) 10 mg PO TID [facility] Stop: 05/20/23 13:59 Last Admin: 05/22/22 08:34 Dose: 10 mg Levothyroxine Sodium (Levothyroxine 100 Mcg Tablet) 100 mcg PO DAILY@0630 [facility] Stop: 05/21/23 06:29 Last Admin: 05/22/22 06:05 Dose: 100 mcg Liothyronine Sodium (Liothyronine 5 Mcg Tablet) 10 mcg PO DAILY [facility] Stop: 05/21/23 08:59 Last Admin: 05/22/22 08:33 Dose: 10 mcg Multivitamins (Multivitamin 1 Tab Tablet) 1 tab PO DAILY [facility] Stop: 05/21/23 08:59 Last Admin: 05/22/22 08:33 Dose: 1 tab Nifedipine (Nifedipine Er.24hr 30 Mg Tab.Er.24) 30 mg PO BID [facility] Stop: 05/20/23 20:59 Last Admin: 05/22/22 08:34 Dose: 30 mg Ondansetron HCl (Ondansetron 4 Mg/2 Ml Vial) 4 mg IV-PUSH Q8H PRN PRN Reason: Nausea And Vomiting Stop: 05/20/23 13:39 Oxycodone HCl (Oxycodone Ir 5 Mg Tablet) 5 mg PO Q6H PRN PRN Reason: Pain Scale 4 - 7 Pantoprazole Sodium (Pantoprazole 40 Mg Tablet.Dr) 40 mg PO BID [facility] Stop: 05/20/23 20:59 Last Admin: 05/22/22 08:34 Dose: 40 mg Potassium Chloride (Potassium Chloride Er 20 Meq Tab.Er.Prt) 40 meq PO DAILY PRN PRN Reason: Hypokalemia Stop: 05/20/23 13:39 Sodium Bicarbonate (Sodium Bicarbonate 650 Mg Tablet) 1,300 mg PO BID [facility] Stop: 05/20/23 20:59 Last Admin: 05/22/22 08:33 [...] been following with hematology clinic here in [facility]. Patient missed the last appointment. Patient received [...] signed by Cristobal Butts MD> 05/22/22 1315 [facility] Work Phone: Progress note Author Salvador Alonso [facility] May 22, 2022 2:54pm Note Date/Time May 22, 2022 2:55 pm [facility] [address] [place] [address] Hospitalist Progress Note Signed Patient: Gopal Yates Jr MR#: [id number] : 1965 Acct:[id number] Age/Sex: 56 / M Adm Date: 3 Loc: Room: [address] [place] [address] Type: ADM IN Attending Dr: Salvador Alonso [...] signed by Salvador Alonso MD> 05/22/22 1454 [facility] Work Phone: Progress note Author Salvador Alonso [facility] May 23, 2022 10:32am Note Date/Time May 23, 2022 10:3 2am [facility] [address] [place] [address] Hospitalist Progress Note Signed Patient: Gopal Yates Jr MR#: [id number] : 1965 Acct:[id number] Age/Sex: 56 / M Adm Date: 3 Loc: Room: [address] [place] [address] Type: ADM IN Attending Dr: Salvador Alonso [...] Tablet PO 05/20/23 13:59 10 mg TID [facility] Administration Levothyroxine Sodium 100 mcg 05/21/22 06:30 05/23/22 05:34 Levothyroxine 100 Mcg Tablet PO 05/21/23 06:29 100 mcg DAILY@0630 [facility] Administration Liothyronine Sodium 10 mcg 05/21/22 09:00 05/23/22 09:35 Liothyronine 5 Mcg Tablet PO 05/21/23 08:59 10 mcg DAILY [facility] Administration Multivitamins 1 tab 05/21/22 09:00 05/23/22 09:36 Multivitamin 1 Tab Tablet PO 03/01/24 08:59 1 tab DAILY [facility] Administration Nifedipine [...] signed by Salvador Alonso MD> 05/23/22 1032 [facility] Work Phone: Progress note Author Eddy Griggs [facility] May 23, 2022 10:48am Note Date/Time May 23, 2022 10:4 8am [facility] [address] [place] [address] Podiatry Progress Note Signed Patient: Gopal Yates Jr MR#: [id number] : 1965 Acct:[id number] Age/Sex: 56 / M Adm Date: 3 Loc: Room: [address] [place] [address] Type: ADM IN Attending Dr: Salvador Alonso [...] <Electronically signed by HARRY Griggs> 05/23/22 1048 [facility] Work Phone: Progress note Author Cristobal Butts [facility] May 23, 2022 1:42pm Note Date/Time May 23, 2022 1:40 pm [facility] [address] [place] [address] Nephrology Progress Note Signed Patient: Gopal Yates Jr MR#: [id number] : 1965 Acct:[id number] Age/Sex: 56 / M Adm Date: 3 Loc: 3T Room: [address] [place] [address] Type: ADM IN Attending Dr: Salvador Alonso [...] been following with hematology clinic here in [facility] for CAROL injection. Patient missed her last [...] 2 Mg Tablet) 2 mg PO DAILY [facility] Stop: 05/21/23 08:59 Last Admin: 05/23/22 09:36 Dose: 2 mg Carvedilol (Carvedilol 12.5 Mg Tablet) 37.5 mg PO BID.WITH.MEALS [facility] Stop: 05/20/23 16:59 Last Admin: 05/23/22 09:35 Dose: 37.5 mg Cyproheptadine HCl (Cyproheptadine 4 Mg Tablet) 4 mg PO DAILY [facility] Stop: 05/21/23 08:59 Last Admin: 05/23/22 09:36 Dose: 4 mg Ezetimibe (Ezetimibe 10 Mg Tablet) 10 mg PO DAILY [facility] Stop: 05/21/23 08:59 Last Admin: 05/23/22 09:35 Dose: 10 mg Hydralazine HCl (Hydralazine 50 Mg Tablet) 50 mg PO TID [facility] Stop: 05/20/23 13:59 Last Admin: 05/23/22 09:36 Dose: 50 mg Piperacillin Sod/Tazobactam Sod (Zosyn 2.25gm) 2.25 gm in 100 mls @ 200 mls/hr IV Q6H [facility] Last Admin: 05/23/22 11:31 Dose: 200 mls/hr Insulin Glargine (Insulin Glargine 300 Units/3 Ml Insuln.Pen) 16 units SUBCUT QAM [facility] Stop: 05/21/23 08:59 Last Admin: 05/23/22 09:38 Dose: 16 units Isosorbide Dinitrate (Isosorbide Dinitrate 10 Mg Tablet) 10 mg PO TID [facility] Stop: 05/20/23 13:59 Last Admin: 05/23/22 09:37 Dose: 10 mg Levothyroxine Sodium (Levothyroxine 100 Mcg Tablet) 100 mcg PO DAILY@0630 [facility] Stop: 05/21/23 06:29 Last Admin: 05/23/22 05:34 Dose: 100 mcg Liothyronine Sodium (Liothyronine 5 Mcg Tablet) 10 mcg PO DAILY [facility] Stop: 05/21/23 08:59 Last Admin: 05/23/22 09:35 Dose: 10 mcg Multivitamins (Multivitamin 1 Tab Tablet) 1 tab PO DAILY [facility] Stop: 05/21/23 08:59 Last Admin: 05/23/22 09:36 Dose: 1 tab Nifedipine (Nifedipine Er.24hr 30 Mg Tab.Er.24) 30 mg PO BID [facility] Stop: 05/20/23 20:59 Last Admin: 05/23/22 09:36 Dose: 30 mg Ondansetron HCl (Ondansetron 4 Mg/2 Ml Vial) 4 mg IV-PUSH Q8H PRN PRN Reason: Nausea And Vomiting Stop: 05/20/23 13:39 Oxycodone HCl (Oxycodone Ir 5 Mg Tablet) 5 mg PO Q6H PRN PRN Reason: Pain Scale 4 - 7 Pantoprazole Sodium (Pantoprazole 40 Mg Tablet.Dr) 40 mg PO BID [facility] Stop: 05/20/23 20:59 Last Admin: 05/23/22 09:35 [...] been following with hematology clinic here in [facility] for CAROL injection . Patient missed the last appointment. Patient received 1 unit of RBC May 21. Patient also was given 1 dose of Hjszsd73,000 units May 21 . Continue to monitor [...] signed by Cristobal Butts MD> 05/23/22 1342 [facility] Work Phone: Progress note Author Salvador Alonso [facility] May 24, 2022 12:12pm Note Date/Time May 24, 2022 12:1 2pm [facility] [address] [place] [address] Hospitalist Progress Note Signed Patient: Gopal Yates Jr MR#: [id number] : 1965 Acct:[id number] Age/Sex: 56 / M Adm Date: 3 Loc: Room: [address] [place] [address] Type: ADM IN Attending Dr: Salvador Alonso [...] Insuln.Pen SUBCUT 05/21/23 08:59 16 units QAM [facility] Administration Isosorbide Dinitrate 10 mg 05/20/22 14:00 [...] signed by Salvador Alonso MD> 05/24/22 1212 [facility] Work Phone: Progress note Author Cristobal Butts [facility] May 24, 2022 12:26pm Note Date/Time May 24, 2022 12:2 6pm [facility] [address] [place] [address] Nephrology Progress Note Signed Patient: Gopal Yates Jr MR#: [id number] : 1965 Acct:[id number] Age/Sex: 56 / M Adm Date: 3 Loc: Room: [address] [place] [address] Type: ADM IN Attending Dr: Salvador Alonso [...] been following with hematology clinic here in [facility] for CAROL injection. Patient missed her last [...] 2 Mg Tablet) 2 mg PO DAILY [facility] Stop: 05/21/23 08:59 Last Admin: 05/24/22 08:56 Dose: 2 mg Carvedilol (Carvedilol 12.5 Mg Tablet) 37.5 mg PO BID.WITH.MEALS [facility] Stop: 05/20/23 16:59 Last Admin: 05/24/22 08:56 Dose: 37.5 mg Cyproheptadine HCl (Cyproheptadine 4 Mg Tablet) 4 mg PO BID [facility] Stop: 05/23/23 20:59 Last Admin: 05/24/22 08:55 Dose: 4 mg Ezetimibe (Ezetimibe 10 Mg Tablet) 10 mg PO DAILY [facility] Stop: 05/21/23 08:59 Last Admin: 05/24/22 08:56 Dose: 10 mg Hydralazine HCl (Hydralazine 50 Mg Tablet) 50 mg PO TID [facility] Stop: 05/20/23 13:59 Last Admin: 05/24/22 08:56 Dose: 50 mg Piperacillin Sod/Tazobactam Sod (Zosyn 2.25gm) 2.25 gm in 100 mls @ 200 mls/hr IV Q6H [facility] Last Admin: 05/24/22 11:49 Dose: 200 mls/hr Insulin Glargine (Insulin Glargine 300 Units/3 Ml Insuln.Pen) 16 units SUBCUT QAM [facility] Stop: 05/21/23 08:59 Last Admin: 05/24/22 08:56 Dose: 16 units Isosorbide Dinitrate (Isosorbide Dinitrate 10 Mg Tablet) 10 mg PO TID [facility] Stop: 05/20/23 13:59 Last Admin: 05/24/22 08:55 Dose: 10 mg Levothyroxine Sodium (Levothyroxine 100 Mcg Tablet) 100 mcg PO DAILY@0630 [facility] Stop: 05/21/23 06:29 Last Admin: 05/24/22 05:44 Dose: 100 mcg Liothyronine Sodium (Liothyronine 5 Mcg Tablet) 10 mcg PO DAILY [facility] Stop: 05/21/23 08:59 Last Admin: 05/24/22 08:56 Dose: 10 mcg Multivitamins (Multivitamin 1 Tab Tablet) 1 tab PO DAILY [facility] Stop: 05/21/23 08:59 Last Admin: 05/24/22 08:56 Dose: 1 tab Nifedipine (Nifedipine Er.24hr 30 Mg Tab.Er.24) 30 mg PO BID [facility] Stop: 05/20/23 20:59 Last Admin: 05/24/22 08:55 Dose: 30 mg Ondansetron HCl (Ondansetron 4 Mg/2 Ml Vial) 4 mg IV-PUSH Q8H PRN PRN Reason: Nausea And Vomiting Stop: 05/20/23 13:39 Oxycodone HCl (Oxycodone Ir 5 Mg Tablet) 5 mg PO Q6H PRN PRN Reason: Pain Scale 4 - 7 Pantoprazole Sodium (Pantoprazole 40 Mg Tablet.Dr) 40 mg PO BID [facility] Stop: 05/20/23 20:59 Last Admin: 05/24/22 08:56 [...] (1,000 Units) Tablet) 50 mcg PO DAILY [facility] Stop: 05/21/23 08:59 Last Admin: 05/24/22 08:56 [...] been following with hematology clinic here in [facility] for CAROL injection . Patient missed the last appointment. Patient received 1 unit of RBC May 21. Patient also was given 1 dose of Dmhxam53,000 units May 21 . Hemoglobin is 8 [...] following Documented By: Cristobal Butts MD 05/24/22 [id number] Signed By: <Electronically signed by Cristobal Butts MD> 05/24/22 [id number] [facility] Work Phone: Progress note Author Yvonne Barboza [facility] May 25, 2022 11:28am Note Date/Time May 25, 2022 10:3 6am [facility] [address] [place] [address] Nephrology Progress Note Signed Patient: Gopal Yates Jr MR#: [id number] : 1965 Acct:[id number] Age/Sex: 56 / M Adm Date: 3 Loc: Room: [address] [place] [address] Type: ADM IN Attending Dr: Scotty Kahn [...] been following with hematology clinic here in [facility] for CAROL injection. Patient missed her last [...] visible mass Skin: No rashes or bruises [employer]: Awake,Alert, 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 Musculoskeletal: No joint [...] 2 Mg Tablet) 2 mg PO DAILY [facility] Stop: 05/21/23 08:59 Last Admin: 05/25/22 08:30 Dose: 2 mg Carvedilol (Carvedilol 12.5 Mg Tablet) 37.5 mg PO BID.WITH.MEALS [facility] Stop: 05/20/23 16:59 Last Admin: 05/25/22 08:30 Dose: 37.5 mg Cyproheptadine HCl (Cyproheptadine 4 Mg Tablet) 4 mg PO BID [facility] Stop: 05/23/23 20:59 Last Admin: 05/25/22 08:30 Dose: 4 mg Ezetimibe (Ezetimibe 10 Mg Tablet) 10 mg PO DAILY [facility] Stop: 05/21/23 08:59 Last Admin: 05/25/22 08:30 Dose: 10 mg Hydralazine HCl (Hydralazine 50 Mg Tablet) 50 mg PO TID [facility] Stop: 05/20/23 13:59 Last Admin: 05/25/22 08:30 Dose: 50 mg Piperacillin Sod/Tazobactam Sod (Zosyn 2.25gm) 2.25 gm in 100 mls @ 200 mls/hr IV Q6H [facility] Last Admin: 05/25/22 05:05 Dose: 200 mls/hr Insulin Glargine (Insulin Glargine 300 Units/3 Ml Insuln.Pen) 16 units SUBCUT QAM [facility] Stop: 05/21/23 08:59 Last Admin: 05/25/22 08:31 Dose: 16 units Isosorbide Dinitrate (Isosorbide Dinitrate 10 Mg Tablet) 10 mg PO TID [facility] Stop: 05/20/23 13:59 Last Admin: 05/25/22 08:30 Dose: 10 mg Levothyroxine Sodium (Levothyroxine 100 Mcg Tablet) 100 mcg PO DAILY@0630 [facility] Stop: 05/21/23 06:29 Last Admin: 05/25/22 05:34 Dose: Not Given Liothyronine Sodium (Liothyronine 5 Mcg Tablet) 10 mcg PO DAILY [facility] Stop: 05/21/23 08:59 Last Admin: 05/25/22 08:31 Dose: 10 mcg Multivitamins (Multivitamin 1 Tab Tablet) 1 tab PO DAILY [facility] Stop: 05/21/23 08:59 Last Admin: 05/25/22 08:31 Dose: 1 tab Nifedipine (Nifedipine Er.24hr 30 Mg Tab.Er.24) 30 mg PO BID [facility] Stop: 05/20/23 20:59 Last Admin: 05/25/22 08:30 [...] (1,000 Units) Tablet) 50 mcg PO DAILY [facility] Stop: 05/21/23 08:59 Last Admin: 05/25/22 08:30 [...] been following with hematology clinic here in [facility] for CAROL injection . Patient missed the last appointment. Patient received 1 unit of RBC May 21. Patient also was given 1 dose of Aobfet83,000 units May 21 . No need for [...] <Electronically signed by Yvonne Barboza MD> 05/25/22 [id number] [facility] Work Phone: Progress note Author Ashutosh Thomas [facility] May 25, 2022 11:21am Note Date/Time May 25, 2022 11:2 2am [facility] [address] [place] [address] Infect. Disease Progress Note Signed Patient: Gopal Yates Jr MR#: [id number] : 1965 Acct:[id number] Age/Sex: 56 / M Adm Date: 3 Loc: 3T Room: [address] [place] [address] Type: ADM IN Attending Dr: Scotty Kahn [...] 2 Mg Tablet) 2 mg PO DAILY [facility] Stop: 05/21/23 08:59 Last Admin: 05/25/22 08:30 Dose: 2 mg Carvedilol (Carvedilol 12.5 Mg Tablet) 37.5 mg PO BID.WITH.MEALS [facility] Stop: 05/20/23 16:59 Last Admin: 05/25/22 08:30 Dose: 37.5 mg Cyproheptadine HCl (Cyproheptadine 4 Mg Tablet) 4 mg PO BID [facility] Stop: 05/23/23 20:59 Last Admin: 05/25/22 08:30 Dose: 4 mg Ezetimibe (Ezetimibe 10 Mg Tablet) 10 mg PO DAILY [facility] Stop: 05/21/23 08:59 Last Admin: 05/25/22 08:30 Dose: 10 mg Hydralazine HCl (Hydralazine 50 Mg Tablet) 50 mg PO TID [facility] Stop: 05/20/23 13:59 Last Admin: 05/25/22 08:30 Dose: 50 mg Piperacillin Sod/Tazobactam Sod (Zosyn 2.25gm) 2.25 gm in 100 mls @ 200 mls/hr IV Q6H [facility] Last Admin: 05/25/22 11:06 Dose: 200 mls/hr Insulin Glargine (Insulin Glargine 300 Units/3 Ml Insuln.Pen) 16 units SUBCUT QAM [facility] Stop: 05/21/23 08:59 Last Admin: 05/25/22 08:31 Dose: 16 units Isosorbide Dinitrate (Isosorbide Dinitrate 10 Mg Tablet) 10 mg PO TID [facility] Stop: 05/20/23 13:59 Last Admin: 05/25/22 08:30 Dose: 10 mg Levothyroxine Sodium (Levothyroxine 100 Mcg Tablet) 100 mcg PO DAILY@0630 [facility] Stop: 05/21/23 06:29 Last Admin: 05/25/22 05:34 Dose: Not Given Liothyronine Sodium (Liothyronine 5 Mcg Tablet) 10 mcg PO DAILY [facility] Stop: 05/21/23 08:59 Last Admin: 05/25/22 08:31 Dose: 10 mcg Multivitamins (Multivitamin 1 Tab Tablet) 1 tab PO DAILY [facility] Stop: 05/21/23 08:59 Last Admin: 05/25/22 08:31 Dose: 1 tab Nifedipine (Nifedipine Er.24hr 30 Mg Tab.Er.24) 30 mg PO BID [facility] Stop: 05/20/23 20:59 Last Admin: 05/25/22 08:30 Dose: 30 mg Ondansetron HCl (Ondansetron 4 Mg/2 Ml Vial) 4 mg IV-PUSH Q8H PRN PRN Reason: Nausea And Vomiting Stop: 05/20/23 13:39 Oxycodone HCl (Oxycodone Ir 5 Mg Tablet) 5 mg PO Q6H PRN PRN Reason: Pain Scale 4 - 7 Pantoprazole Sodium (Pantoprazole 40 Mg Tablet.Dr) 40 mg PO BID [facility] Stop: 05/20/23 20:59 Last Admin: 05/25/22 08:31 Dose: 40 mg Potassium Chloride (Potassium Chloride Er 20 Meq Tab.Er.Prt) 40 meq PO DAILY PRN PRN Reason: Hypokalemia Stop: 05/20/23 13:39 Sodium Bicarbonate (Sodium Bicarbonate 650 Mg Tablet) 1,300 mg PO BID [facility] Stop: 05/20/23 20:59 Last Admin: 05/25/22 08:30 [...] signed by MD Ashutosh Thomas> 05/25/22 1121 [facility] Work Phone: Progress note No data available for this section [facility] General Surgery [place] Summary Purpose Family History No Family History [...] Reason for Visit Anemia of renal dise [facility] CKD (chronic kidney disease) stage 5, GFR less than 15 ml/min Diabetic foot ulcer with osteomyelitis Hypertensive kidney disease with chronic kidney disease stage V Metabolic acidosis Osteomyelitis 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 moran wounds Reason for Visit Anemia of renal dise [facility] CKD (chronic kidney disease) stage [...] Complaint R foot problem, sent by dr. moran wounds Reason for Visit Anemia of renal dise [facility] CKD (chronic kidney disease) stage [...] foot problem, sent by L97.516 open wounds Right foot wound ESRD Reason for Visit Anemia of renal dise [facility] CKD (chronic kidney disease) stage [...] [email or web address] open wounds ESRD Right foot wound fever Reason for Visit Anemia of renal dise [facility] CKD (chronic kidney disease) stage [...] sent by dr. [place] open wounds ESRD L97.516 fever Right foot wound Reason for Visit Anemia of renal dise [facility] CKD (chronic kidney disease) stage [...] section and content) DATE CREATED AUTHOR 05/26/2021 [facility] DATE CREATED AUTHOR AUTHOR'S ORGANIZ ATION 06/02/2022 [facility] DATE CREATED AUTHOR AUTHOR'S ORGANIZ ATION 07/14/2022 [facility] DATE CREATED AUTHOR AUTHOR'S ORGANIZ ATION 05/12/2023 [facility] DATE CREATED AUTHOR AUTHOR'S ORGANIZ ATION 11/04/2023 [facility] DATE CREATED AUTHOR AUTHOR'S ORGANIZ ATION 09/29/2024 [facility] EPIC DATE CREATED AUTHOR AUTHOR'S ORGANIZ ATION 11/15/2024 [facility] REASON FOR VISIT (unrecogniz ed section and content) Reason Comments Established Patient Specialty Diagnoses / Procedures Referred By Aileen maldonado Referred To Contact Diagnoses Anemia due to stage 3b chronic kidney disease (HCC) Procedures DARBEPOETIN FARHAT, NON-ESRD Conrad Rojas MD [address] [place] [address] [place] [address] Chito Treat [address] [place] [address] Referral ID Status Reason Start Date Expiration Date V isits Requested Visits Authorized [id number] Authorized 10/18/2021 12/01/2021 4 4 Reason Comments Chronic Kidney Disease 2 month follow up Reason Comments Infusions Reason Comments Anemia 2 week follow up Reason Comments Anemia 4 week follow up Referral ID Status Reason Start Date Expiration Date V isits Requested Visits Authorized [id number] Authorized 10/18/2021 03/02/2022 7 7 Referral ID Status Reason Start Date Expiration Date V isits Requested Visits Authorized [id number] Pending Review 10/18/2021 04/16/2022 11 11 Referral ID Status Reason Start Date Expiration Date V isits Requested Visits Authorized [id number] Authorized 10/18/2021 04/16/2022 11 11 Referral ID Status Reason Start Date Expiration Date V isits Requested Visits Authorized [id number] Authorized 10/18/2021 05/31/2022 15 15 Reason Comments Anemia Follow up Reason Comments Patient Update Appointment Reason Comments DM Foot Care PCP: Dr. 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 is a 59 y.o. male who presents for DM shoe measure. (PCP: Dr. Juárez LV 07/2023, NV: 07/20/24, A1C: 6.9, BS: doesn't check,SS: 12). 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 Patient received [address] Idalia faulkner and 1 pair Custom inserts. 12W. BS [address] A[address]C [address].7Dr. Brysony 06/2024 Reason Onset Date Comments Advice Only 10/09/2024 Keeping DM Shoes Source Comments (unrecognize d section and content) In the event this informatio n is protected by the Federal Confidentiality of Alcohol and Drug Abuse Patient Records regulations: The Federal rules restrict any use of the information to criminally investigate or prosecute any alcohol or drug abuse patient.[facility] the event this information is protected by the Federal Confidentiality of Alcohol and Drug Abuse Patient Records regulations: The Federal rules restrict any use of the information to criminally investigate or prosecute any alcohol or drug abuse patient.[facility] the event this information is protected by the Federal Confidentiality of Alcohol and Drug Abuse Patient Records regulations: The Federal rules restrict any use of the information to criminally investigate or prosecute any alcohol or drug abuse patient.[facility] the event this information is protected by the Federal Confidentiality of Alcohol and Drug Abuse Patient Records regulations: The Federal rules restrict any use of the information to criminally investigate or prosecute any alcohol or drug abuse patient.[facility] the event this information is protected by the Federal Confidentiality of Alcohol and Drug Abuse Patient Records regulations: The Federal rules restrict any use of the information to criminally investigate or prosecute any alcohol or drug abuse patient.[facility] the event this information is protected by the Federal Confidentiality of Alcohol and Drug Abuse Patient Records regulations: The Federal rules restrict any use of the information to criminally investigate or prosecute any alcohol or drug abuse patient.[facility] the event this information is protected by the Federal Confidentiality of Alcohol and Drug Abuse Patient Records regulations: The Federal rules restrict any use of the information to criminally investigate or prosecute any alcohol or drug abuse patient.[facility] the event this information is protected by the Federal Confidentiality of Alcohol and Drug Abuse Patient Records regulations: The Federal rules restrict any use of the information to criminally investigate or prosecute any alcohol or drug abuse patient.[facility] the event this information is protected by the Federal Confidentiality of Alcohol and Drug Abuse Patient Records regulations: The Federal rules restrict any use of the information to criminally investigate or prosecute any alcohol or drug abuse patient.[facility] the event this information is protected by the Federal Confidentiality of Alcohol and Drug Abuse Patient Records regulations: The Federal rules restrict any use of the information to criminally investigate or prosecute any alcohol or drug abuse patient.[facility] the event this information is protected by the Federal Confidentiality of Alcohol and Drug Abuse Patient Records regulations: The Federal rules restrict any use of the information to criminally investigate or prosecute any alcohol or drug abuse patient.[facility] Hospital[facility] the event this information is protected by the Federal Confidentiality of Alcohol and Drug Abuse Patient Records regulations: The Federal rules restrict any use of the information to criminally investigate or prosecute any alcohol or drug abuse patient.[facility] Hospital[facility] the event this information is protected by the Federal Confidentiality of Alcohol and Drug Abuse Patient Records regulations: The Federal rules restrict any use of the information to criminally investigate or prosecute any alcohol or drug abuse patient.[facility] the event this information is protected by the Federal Confidentiality of Alcohol and Drug Abuse Patient Records regulations: The Federal rules restrict any use of the information to criminally investigate or prosecute any alcohol or drug abuse patient.[facility] Hospital[facility] the event this information is protected by the Federal Confidentiality of Alcohol and Drug Abuse Patient Records regulations: The Federal rules restrict any use of the information to criminally investigate or prosecute any alcohol or drug abuse patient.[facility] Care Teams (unrecognized sec tion and content) Team Status: Active Member Role Status Juancarlos Juárez MD Primary Care Provider Active Team Status: Active Member Role Status Juancarlos Juárez MD Primary Care Provider Active Start: June 12, 2024 Yvonne Barboza MD Attending Provider Active Start : June 12, 2024 Team Status: Inactive Member Role Status Juancarlos Juárez MD Primary Care Provider Active Start: August 10, 2024 End: August 10, 2024 Ford Sam MD Attending Provider Active S tart: August 10, 2024 End: August 10, 2024 Team Status: Inactive Member Role Status Juancarlos Juárez MD Primary Care Provider Active Sohan Kellogg MD Attending Provider Active Team Status: Inactive Member Role Status Juancarlos Juárez MD Primary Care Provider Active Eddy Griggs DPM Attending Provider Active Team Status: Inactive Member Role Status Juancarlos Juárez MD Primary Care Provider Active Gopal Larsen MD Emergency Provider Active Salvador Alonso MD Admit Provider Active Ashutosh Thomas MD Other Provider Active Cristobal Butts MD Other Provider Active Primo Luis DPM Other Provider Active Scotty Kahn DO Attending Provider Active Team Status: Inactive Member Role Status Juancarlos Juárez MD Primary Care Provider Active Lambert Blanc DO Emergency Provider Active Cornelio Simon MD Admit Provider, Attending Freda saba Active Ashutosh Thomas MD Other Provider Active Yvonne Barboza MD Other Provider Active Eddy Griggs DPM Other Provider Active Sohan Kellogg MD Other Provider Active Team Status: Active Member Role Status Dates Douglas Juárez MD Primary Care Provider Active Eddy Griggs DPM Attending Provider Active Skin Diver Relationship Specialty Start Date End Date Douglas Juárez MD [address] [place] [address] PCP - General Family Practice 09/29/21 Skin Diver Relationship Specialty Start Date End Date Douglas Juárez MD [address] [place] [address] PCP - General Family Practice 09/29/21 Skin Diver Relationship Specialty Start Date End Date Douglas Juárez MD [address] [place] [address] PCP - General Family Practice 09/29/21 Skin Diver Relationship Specialty Start Date End Date Douglas Juárez MD [address] [place] [address] PCP - General Family Practice 09/29/21 Skin Diver Relationship Specialty Start Date End Date Douglas Juárez MD [address] [place] [address] PCP - General Family Practice 09/29/21 Team Status: Inactive Member Role Status Dates Douglas Juárez MD Primary Care Provider Active Cristobal Butts MD Attending Provider Active Skin Diver Relationship Specialty Start Date End Date Douglas Juárez MD [address] [place] [address] PCP - General Family Practice 09/29/21 Skin Diver Relationship Specialty Start Date End Date Douglas Juárez MD [address] [place] [address] PCP - General Family Medicine 09/29/21 Skin Diver Relationship Specialty Start Date End Date Douglas Juárez MD [address] [place] [address] PCP - General Family Medicine 09/29/21 Skin Diver Relationship Specialty Start Date End Date Douglas Juárez MD [address] [place] [address] PCP - General Family Medicine 09/29/21 Skin Diver Relationship Specialty Start Date End Date Douglas Juárez MD [address] [place] [id number] PCP - General Family Medicine 09/29/21 Skin Diver Relationship Specialty Start Date End Date Douglas Juárez MD [address] [place] [id number] PCP - General [facility] 09/29/21 Skin Diver Relationship Specialty Start Date End Date Douglas Juárez MD [address] [place] [id number] PCP - General Family Medicine 09/29/21 Team [...] Active Primo Luis DPM Other Provider Active Skin Diver Relationship Specialty Start Date End Date Douglas Juárez MD PCP - General Family Medicine 09/29/21 Team Status: Active Member Role Status Dates Douglas Juárez MD Primary Care Provider Active Gopal Larsen MD Emergency Provider Active Caleb Farrar MD Admit Provider, Attending Afshan arango Active Team Status: Inactive Member Role Status Dates Douglas Juárez MD Primary Care Provider Active Gopal Larsen MD Emergency Provider Active Caleb Farrar MD Admit Provider Active Ashutosh Thomas MD Other Provider Active Cristobal Butts MD Other Provider Active Eddy Griggs DPM Other Provider Active Vikash Pope DO Attending Provider Active Skin Diver Relationship Specialty Start Date End Date Douglas Juárez MD [address] [facility] [place] [facility] [address] PCP - General Family Medicine 08/12/22 Skin Diver Relationship Specialty Start Date End Date Douglas Juárez MD [address] [facility] [place] [address] PCP - General Family Medicine 08/12/22 Skin Diver Relationship Specialty Start Date End Date Douglas Juárez MD [address] [facility], [id number] PCP - General Family Medicine 08/12/22 Skin Diver Relationship Specialty Start Date End Date Douglas Juárez MD [address] [facility] [address] PCP - General Family Medicine 08/12/22 Skin Diver Relationship Specialty Start Date End Date Douglas Juárez MD [address] [facility], [facility] PCP - General Family Medicine 08/12/22 Skin Diver Relationship Specialty Start Date End Date Douglas Juárez MD [address] [facility] [place] [address] PCP - General Family Medicine 08/12/22 Skin Diver Relationship Specialty Start Date End Date Douglas Juárez MD [address] [facility] [place] [address] PCP - General Family Medicine 08/12/22 Skin Diver Relationship Specialty Start Date End Date Douglas Juárez MD [address] [place] [address] PCP - General Family Medicine 08/12/22 Skin Diver Relationship Specialty Start Date End Date Douglas Juárez MD [address] [place] [address] [phone] PCP - General Family Medicine 08/12/22 Goals [...] BE BASED ON THE PRIMARY CLINICAL RECORDS. [employer] provides no warranty or guarantee of the accuracy or completeness of information in this document.
[2024-11-17] MEDS: ALBUTEROL SULFATE 2.5 MG/3 ML VIAL NEB IH (13:23)
[2024-11-17 13:24] VITALS: PULSE 68; O2SAT 98
== END 2024-11-17 12:47 | disposition home or self-care (01) ==
LOC: CARD 12:46
PROVIDERS: PCP Family Medicine; Visit Provider Nurse Practitioner
DX: I25.10 Atherosclerotic heart disease of native coronary artery without angina pectoris (principal); I73.89 Other specified peripheral vascular diseases; R06.02 Shortness of breath
CPT/HCPCS: 36415; 85018; 94060; 94726; 94729

== ENCOUNTER 2025-02-12 12:52 | Outpatient (OUT) | payer MEDICARE, MEDICAID, SELFPAY ==
--- NOTE | 2025-02-12 12:54 | CA_ITS ---
Patient Name: GOPAL YATES MR#: [id number] : 1965 Exam Date: 02/12/2025 Ordering Doctor: NON-STAFF PHYSICIAN ECHOCARDIOGRAM REPORT PROCEDURE: CA ECHO DOPPLER COMPLETE INDICATIONS: Chronic systolic heart failure COMPARISON: None. DESCRIPTION: COMPLETE ECHOCARDIOGRAM Real-time transthoracic echocardiography with 2D, M-mode, spectral and color flow Doppler performed. QUALITY: Technical quality was good. LEFT VENTRICLE: Normal chamber size. Proximal septal hypertrophy (sigmoid septum). Global left ventricular systolic function is mildly decreased. Visual estimation of left ventricular ejection fraction is 45-50%. Hypokinesis of the basal and mid inferior and inferolateral alvarado. LV EF: Mildly reduced left ventricular ejection fraction, (40-50%). DIASTOLIC: Grade II diastolic dysfunction. ATRIAL SEPTUM: LEFT ATRIUM: Severe dilatation. RIGHT ATRIUM: Moderate dilatation. RIGHT VENTRICLE: Normal chamber size. Normal right ventricular systolic function. TRICUSPID VALVE: Normal mobility and thickness. No stenosis with trivial regurgitation. No evidence of pulmonary hypertension. RVSP measures 24 mmHg. MITRAL VALVE: Normal mobility and thickness. No evidence of mitral valve stenosis. There is no mitral annular calcification. Mild mitral regurgitation. AORTIC VALVE: Normal trileaflet appearance. Thickened aortic valve. Normal leaflet mobility. No evidence of aortic valve stenosis. Trivial aortic regurgitation. AORTIC ROOT: The aortic root measures upper limits of normal at 3.9 cm. The ascending aorta measures 2.7 cm. PULMONIC VALVE: Normal thickness and mobility. No stenosis. Trivial regurgitation. PERICARDIUM: No evidence of pericardial effusion. IVC: Collapses with inspiration. The IVC is normal in size measuring 1.8 cm. PLEURA: CONCLUSION: 1. Left ventricle is normal in size and exhibits mildly reduced systolic function with hypokinesis of the basal and mid inferior and inferolateral alvarado. Estimated LVEF is 45 to 50%. 2. Normal right ventricular size and systolic function. 3. Moderate to severe biatrial dilatation. 4. Grade 2 diastolic dysfunction. 5. Mild mitral regurgitation. 6. Normal right-sided pressures. Adult Echocardiography Procedure Report Left Ventricle LVEDD (3.7 - 5.6 cm): 5.05 cm LVESD (2.2 - 4.0 cm): 4.01 cm LVIVS thickness (0.6 - 1.2 cm): 1.73 cm LVPW thickness (0.5 - 1.0 cm): 1.01 cm e': 0.09 m/s E - e': 8.77 LVOT Max Gradient: 3.92 mm[Hg] LVOT Area (cm2): 0.99 m/s Peak Velocity (LVOT): 0.99 m/s Mean Velocity (LVOT): 0.62 m/s LVOT Diameter 2.53 cm Left Ventricular Ejection Fraction: 45-50 % Left Atrium LA Volume Index (2D A2C): 63.34 ml/m2 Left Atrium Systolic Dimension: 5.23 cm Mitral Valve MV E to A Ratio: 1.29 Mitral Valve A-Wave Peak Velocity: 0.61 m/s Mitral Valve E-Wave Peak Velocity: 0.79 m/s Right Ventricle RV Internal Diastolic Dimension: 3.64 cm Aorta AO Root Diam: 3.86 cm Ascending Ao Diam: 2.65 cm Aortic Valve AoV Area (Peak Roderick): 4.44 cm2, 4.44 cm2 AoV Area (VTI): 3.98 cm2, 3.98 cm2 Peak Velocity(Antegrade Flow): 1.12 m/s Peak Gradient(Antegrade Flow): 5.00 mm[Hg] Mean Velocity(Antegrade Flow): 0.77 m/s Mean Gradient(Antegrade Flow): 2.64 mm[Hg] Velocity Time Integral: 26.25 cm Tricuspid Valve Peak Velocity (Regurgitant Flow): 2.28 m/s, 2.31 m/s Pulmonic Valve Mean Gradient: 1.60 mm[Hg], 1.80 mm[Hg] Mean Velocity: 0.56 m/s, 0.62 m/s Peak Velocity: 0.93 m/s Peak Gradient: 3.81 mm[Hg], 3.17 mm[Hg] Right Atrium Right Atrium Systolic Pressure: 49.05 ml, 49.05 ml Dictated by: Jeffery Sosa M.D. on 02/13/2025 at 19:05 Approved by: Jeffery Sosa M.D. on 02/13/2025 at 19:10
--- OUTSIDE RECORDS SUMMARY | 2025-02-12 12:54 | XMS_ITS | Clinical Summary ---
Author Organization [facility] Address [address] [place], [place] [address] Care Team Providers Care Special Education Administrator Name Role Phone Pierce Cartwright MD Primary Care Provider [phone] Self Unavailable Unavailable Bee Saldana MD Unavailable Allergies Active AllergyReactionsCriticalityNoted DateCommentsSulfa (Sulfonamide Antibiotics)Dptrufy5710/01/2021 Medications MedicationSigDispense QuantityRefillsLast FilledStart DateEnd DateStatus aspirin 81 mg cap Take by mouth.Active bumetanide (BUMEX) 2 mg tablet Take 2 mg by mouth once daily.Active carvedilol (COREG) 25 mg tablet Take 25 mg by mouth twice daily with meals. 1/2 tabstwice dailyActive ferrous sulfate 325 mg (65 mg iron) tablet Take 325 mg by mouth daily with breakfast.Active hydrALAZINE (APRESOLINE) 50 mg tablet Take 50 mg by mouth three times daily.Active insulin detemir (LEVEMIR FLEXPEN SUBCUTANEOUS) Inject subcutaneously.Active levothyroxine 100 mcg cap Take 100 mcg by mouth daily before breakfast.Active Multivitamin capsule Take 1 capsule by mouth once daily.Active NIFEdipine XL (ADALAT CC) 30 mg 24 hr tablet Take 30 mg by mouth once daily.Active potassium chloride (K-TAB) 10 mEq tablet Take 10 mEq by mouth twice daily.Active Omeprazole Magnesium 20 mg tablet Take 20 mg by mouth once daily.Active sodium bicarbonate 650 mg tablet Take 650 mg by mouth twice daily.Active ezetimibe (ZETIA) 10 mg tablet Take 10 mg by mouth once daily.Active Active Problems ProblemNoted DateDiagnosed DateAnemia due to stage 3b chronic kidney disease 10/08/2021 Encounters DateTypeDepartmentCare YxmjKiglfezietu83/17/2025Telephone Cardiothoracic [address] [place] [address] Unspecified, Cardiac Surgeon - Insurance Aeohuen6702/02/2025Telephone Cardiothoracic [address] [place] [address] Bee Saldana MD Referral Dvuwhmlvngl19/14/2025Patient Update Cardiothoracic [address] [place] [address] Care Everywhere, Provider 02/02/2025Telephone Cardiothoracic [address] [place] [address] Unspecified, Cardiac Surgeon - Appointmentfrom Last 3 Months Immunizations ImmunizationAdministration DatesNext DueCOVID-19 original vaccine, age 12+ yr, monovalent (PFIZER-BIONTECH - RINCON TOP)2COVID- original vaccine, age 12+ yr, monovalent (PFIZER-BIONTECH - PURPLE TOP)06/11/2021,07/29/2020, 07/08/2020 Family History Medical HistoryRelationCommentsDiabetesFatherHeart diseaseFatherMental illness FatherCancerMotherRelationStatusCommentsFatherDeceasedMotherDeceased Social History Tobacco UseTypesPacks/DayYears UsedDateSmoking Tobacco: NeverPassive Smoke Exposure: PastSmokeless Tobacco: Never Tobacco Cessation:Counseling Given: Not Answered Alcohol UseStandard Drinks/WeekCommentsNot Currently0 (1 standard drink = 0.6 oz pure alcohol)PHQ-2AnswerDate RecordedPHQ-2 fefia492rea Deprivation IndexAnswerDate RecordedNational Score (1-100), lower number is lower risk91 04/08/2022State Score (1-10), lower number is lower riskNot on file04/08/2022 Data from: https://www.neighborhoodatlas.medicine.[facility].edu/. Last address used for pvgbkvgzid[address]04/08/2022Sex and Gender InformationValueDate RecordedSex Assigned at WfxlvKzdr23/18/2025 8:00 AM ESTLegal MjpJavj5306/10/2019 1:35 PM EDTGender UtjtsombPcfb11/18/2025 8:00 AM ESTSexual OrientationNot on file Last Filed Vital Signs Vital SignReadingTime TakenCommentsBlood Lkfwidqg074/61004/16/2022 2:51 PM EST Empzi854704/16/2022 2:51 PM ZGJMmqlkemphpl62.1 ??C (97 ??F)04/16/2022 2:51 PM EST Respiratory Vlsu258304/16/2022 2:51 PM ESTOxygen Hnhnlijozw32%04/16/2022 2:51 PM ESTInhaled Oxygen Concentration--Zmqyjd73.8 kg (198 lb)04/16/2022 2:51 PM EST Czkask770 cm (6' 3.98 )04/16/2022 2:51 PM ESTBody Mass Index24.11004/16/2022 2:51 PM EST Plan of Treatment Health MaintenanceDue DateLast DoneCommentsAnnual PCP Team Chronic Disease Visit 1982Anxiety Makqperbl58/12/1983Depression Zbzohwhvu74/12/1983DTaP,Tdap,Td Vaccine (1 - Tdap)08/01/1983CT Cfccnxtrjssg03/12/2010Cologuard (FIT-DNA) 07/31/20097792Dhtktrpupbj44/12/2010Colorectal Cancer Ulpcjtjev98/12/2010Fecal Occult Blood2009Prostate Cancer Screening Uskcscafoc22/12/2010Sigmoidoscopy 2009Shingrix Vaccine (1 of 2)2014Medicare Annual Wellness Visit 05/20/2022RSV Vaccine (1 - Risk 60-74 years 1-dose series)5Covid-19 Vaccine ( season)/, 06/11/2021, 07/29/2020, Additional history existsInfluenza Vaccine (#1)/03/2023 Hemoglobin/Uicjzgoaav44/11/202606/01/2025, 04/16/2022, 03/18/2022, Additional history existsSerum Irlanctesd50/11/202606/01/2025, 04/16/2022, 03/18/2022, Additional history existsDiabetes Vtzymmldo95, 08/30/2024, 04/16/2022, Additional history existsLipid Giuvkuzth94 Pneumococcal Vaccine: 50+Yxnipfgxn02/01/2024HIV VgnqrppysAgdbqynvx10/11/2025 Hepatitis C DmplynbmaRjggagatg42/11/2025 Procedures Procedure NamePriorityDate/TimeAssociated DiagnosisCommentsCT OUTSIDE CD DICOM DRWBPU3601/09/2025 CBC + TTGVRyfikzf62/26/2023 2:48 PM EST Stage 3b chronic kidney disease (HCC) Anemia due to stage 3b chronic kidney disease (HCC) Elevated serum immunoglobulin free light chains COMPREHENSIVE METABOLIC YJYXIThdwpgw99/26/2023 2:48 PM EST Stage 3b chronic kidney disease (HCC) Anemia due to stage 3b chronic kidney disease (HCC) Elevated serum immunoglobulin free light chains from Last 3 Months or Most Recently Relevant to Health Maintenance Results * CT-CT ABDOMEN PELVIS W IV CONTRAST IMPORT (01/09/2025)Anatomical Region LateralityModalityOtherSpecimen (Source)Anatomical Location / Laterality Collection Method / VolumeCollection TimeReceived Time01/09/2025 Narrative 02/04/2025 12:59 AM EST Images were obtained outside of [facility] Procedure Note Provider, [facility] - 02/04/2025 Images were obtained outside of [facility] Authorizing ProviderResult TypeResult StatusCcf ProviderRADIOLOGYFinal Result * (ABNORMAL) COMP METABOLIC PANEL (04/16/2022 2:48 PM EST)ComponentValueRef RangeTest MethodAnalysis TimePerformed AtPathologist SignatureProtein, Total 7.06.3 - 8.0 g/dL04/16/2022 3:14 PM [facility] Albumin3.7(L)3.9 - 4.9 g/dL04/16/2022 3:14 PM ESTNOR[facility]COASELECT SPECIAL[facility] LABCalcium, Total8.1(L)8.5 - 10.2 mg/dL04/16/2022 3:14 PM [facility] LABBilirubin, Total0.50.2 - 1.3 mg/dL04/16/2022 3:14 PM [facility] LABAlkaline Xohzgaalfgv938(H)38 - 113 U/L 04/16/2022 3:14 PM [facility] BAULMT2962 - 40 U/L 04/16/2022 3:14 PM [facility] DAWXUI8244 - 54 U/L 04/16/2022 3:14 PM [facility] BPMAfaarqa984(H)74 - 99 mg/dL04/16/2022 3:14 PM [facility] LABComment: The [place] Diabetes Association (ADA) provides guidance for cutoff values for fasting glucose andrandom glucose. The ADA defines fasting as no [...] Standards of Medical Care in Diabetes 2016, [place] [employer] Association. Diabetes Care. 2016.39(Suppl 1). BUN81(H)9 - 24 mg/dL04/16/2022 3:14 PM [facility] Creatinine4.53(H)0.73 - 1.22 mg/dL04/16/2022 3:14 PM [facility] XNQDhghuc905173 - 144 mmol/L04/16/2022 3:14 PM [facility] LABPotassium4.23.7 - 5.1 mmol/L04/16/2022 3:14 PM EST [facility] GBBYeecforq159(H)97 - 105 mmol/L04/16/2022 3:14 PM [facility] MGQOH123(L)22 - 30 mmol/L04/16/2022 3:14 PM [facility]NORTMCL[facility] LABAnion Lva628 - 18 mmol/L 04/16/2022 3:14 PM [facility] LABEstimated Glomerular Filtration Rate14(L)>=60 mL/min/1.73m 04/16/2022 3:14 PM [facility] LABComment:Estimated Glomerular Filtration Rate (eGFR) is calculated using the 2020 CKD-EPI creatinine equation. This equation utilizes serum creatinine, sex, and age as parameters. The creatinine assay has traceable calibration to isotope dilution- mass spectrometry. Refer to KDIGO guidelines for clinical interpretation. In patients with unstable renal function, e.g. those with acute kidney injury, the eGFRmay not accurately reflect actual GFR.Specimen (Source)Anatomical Location / LateralityCollection Method / VolumeCollection TimeReceived TimeBloodBLOOD SPECIMEN / UnknownVenipuncture / Mgcrhsn6104/16/2022 2:48 PM EST04/16/2022 2:48 PM EST Narrative Authorizing ProviderResult TypeResult StatusVivek Latricia BATISTALABORATORYFinal ResultPerforming OrganizationAddressCity/State/ZIP CodePhone Number [facility] [address] [place] [phone] * (ABNORMAL) CBC + DIFF (04/16/2022 2:48 PM EST)ComponentValueRef RangeTest MethodAnalysis TimePerformed AtPathologist SignatureWBC5.823.70 - 11.00 k/uL 04/16/2022 2:52 PM ESTNORTMCLAREN OAKLAND LABRBC3.62(L)4.20 - 6.00 m/uL04/16/2022 2:52 PM ESTNORTMCL[facility]EN [facility] LABHemoglobin 10.5(L)13.0 - 17.0 g/dL04/16/2022 2:52 PM [facility] EHZCtlyfwzubv75.2(L)39.0 - 51.0 %04/16/2022 2:52 PM [facility] YSYRKY85.080.0 - 100.0 IA04/16/2022 2:52 PM [facility] OPFUKV53.026.0 - 34.0 pg04/16/2022 2:52 PM EST [facility] JVXTNAC52.630.5 - 36.0 g/dL04/16/2022 2:52 PM [facility] LABRDW-CV13.311.5 - 15.0 %04/16/2022 2:52 PM [facility] LABPlatelet Fevrl587(L)150 - 400 k/04/16/2022 2:52 PM [facility] SVJSVT41.59.0 - 12.7 IA04/16/2022 2:52 PM [facility] LABNeutrophils %76.2%04/16/2022 2:52 PM [facility] LABAbs Neut4.44 1.45 - 7.50 k/04/16/2022 2:52 PM [facility] Lymphocytes %11.0%04/16/2022 2:52 PM [facility] Abs Lymph0.64(L)1.00 - 4.00 k/04/16/2022 2:52 PM [facility] LABMonocytes %10.7%04/16/2022 2:52 PM [facility] LABAbs Mono0.62<0.87 k/04/16/2022 2:52 PM [facility] LABEosinophils %1.4%04/16/2022 2:52 PM [facility] LABAbs Eosin0.08<0.46 k/04/16/2022 2:52 PM [facility] LABBasophils %0.5%04/16/2022 2:52 PM [facility] LABAbs Baso0.03<0.11 k/uL04/16/2022 2:52 PM [facility]NORTMCL[facility] LABImmature Granulocytes %0.2%04/16/2022 2:52 PM ESTNORTMCL[facility] LABAbs Immature Gran<0.03<0.10 k/uL04/16/2022 2:52 PM ESTHIGHL[facility] LABNRBC0.0/100 WBC 04/16/2022 2:52 PM ESTNORTMCL[facility] LABAbsolute nRBC<0.01 <0.01 /04/16/2022 2:52 PM ESTHIGHLAND-[facility] LABDiff Type Auto04/16/2022 2:52 PM [facility] LABSpecimen (Source)Anatomical Location / LateralityCollection Method / VolumeCollection TimeReceived TimeBloodBLOOD SPECIMEN / UnknownVenipuncture / Hbswjnl9404/16/2022 2:48 PM EST04/16/2022 2:48 PM EST Narrative [facility] - 04/16/2022 2:52 PM EST This is an appended report. These results have been appended to a previously verified report. Authorizing ProviderResult TypeResult StatusVivek Latricia MDLABORATORYFinal ResultPerforming OrganizationAddressCity/State/ZIP CodePhone Number [facility] [address] [place] [address] from Last 3 Months or Most Recently Relevant to Health Maintenance Insurance Care Teams Team MemberRelationshipSpecialtyStart DateEnd Pierce Cartwright MD PCP - GeneralFamily Medicine09/29/21 Self SurgeonFamily Otvjrmug66/14/25 Bee Saldana MD [address] [address] SurgeonCardiac Surg02/07/25
--- OUTSIDE RECORDS SUMMARY | 2025-02-12 12:54 | XMS_ITS | Encounter Summary ---
Author Organization [facility] Address [facility] [place] [id number] Care Team Providers Care Quarrying Specialist Name Role Phone Pierce Cartwright MD Primary Care Provider [phone] Unspecified, Cardiac Surgeon - Unavailable U navailable Self Unavailable Unavailable Bee Saldana MD Unavailable Source Comments In the event this information is protected by the Federal Confidentiality of Alcohol and Drug AbusePatient Records regulations: The Federal rules restrict any use of the information to criminally investigate or prosecute any alcohol or drug abuse patient.[facility] Reason for Visit * ReasonCommentsReferral Information Encounter Details DateTypeDepartmentCare Team (Latest Contact Info)Smyerlufuzu23/14/2025Telephone Cardiothoracic [address] [place] [phone] Bee Saldana MD [address] [facility] [id number] [place] [address] Referral Information Social History Tobacco UseTypesPacks/DayYears UsedDateSmoking Tobacco: NeverPassive Smoke Exposure: PastSmokeless Tobacco: NeverAlcohol UseStandard Drinks/WeekCommentsNot Currently0 (1 standard drink = 0.6 oz pure alcohol)PHQ-2AnswerDate RecordedPHQ-2 gassr357/26/2023Area Deprivation IndexAnswerDate RecordedNational Score (1-100), lower number is lower ubln178704/08/2022State Score (1-10), lower number is lower riskNot on file04/08/2022ata from: https://www.neighborhoodatlas.medicine.[facility]/. Last address used for dhz[address]zhgfjp[address]04/08/2022Sex and Gender InformationValueDate Recorded Sex Assigned at RwjgzJmmi15/18/2025 8:00 AM ESTLegal PsyNzvq2506/10/2019 1:35 PM EDTGender NgjgpfiuDzwg66/18/2025 8:00 AM ESTSexual OrientationNot on file documented as of this encounter Miscellaneous Notes * Telephone Encounter - Radha Eason RN - 02/08/2025 9:59 AM EST NPM reviewed chart to TM Radha Eason RN * Telephone Encounter - Alejandra Gomez RN - 02/07/2025 3:16 PM EST Unspecified CTS referral for patient with CAD. Chart to NPM for Dr. Saldana to review. Alejandra Gomez RN * Telephone Encounter - Marcy Juarez - 02/05/2025 11:37 AM EST Sent ins for inquiry Will let PT know moving to review once it is verified. * Telephone Encounter - Marcy Juarez - 02/02/2025 1:39 PM EST Emailed PT my contact info, requested ins, explained process. Faxed image request to [phone] Will follow up * Telephone Encounter - Marcy Juarez - 02/02/2025 1:31 PM EST LOCAL PATIENT Received Routed [facility] Telephone Encounter from Mr. Monzon/[facility] Franklin Monzon JR is being referred to First Available/Unspecified by No referring provider defined for this encounter. Phone: N/A Fax: Patient diagnosis/Reason for consult: two completely blocked arteries calcified Referral triage process explained: Yes Patient will receive a call from Cardiac NPM after triage review with surgeon to discuss any additional testing and/or consults that will be scheduled. Pt will then receive a call from our scheduling office for scheduling. Please call pt at [phone]. Patient Registration: Registration complete/updated: yes Insurance card(s) scanned in the medical center within the past year: yes, 02/05/25- [facility] Pt's [email or web address] is inactive. Ok to communicate to pt via Coeurative not asked Medical Records: Records in [facility] (internal [facility] records): No Imaging in [facility] (internal [facility] records): No Care Everywhere - queried yes, downloaded Yes Linked Outside Organizations (list): [facility] Records Requested: yes Date: February 02, 2025 Outside Hospital(s) requested records from: [facility] Received: yes Uploaded: Yes. O[facility] Radiology Imaging Requested: yes Date: February 02, 2025 Outside Hospital(s) requested imaging from: [facility] will be received via Electronic Transfer Received: yes Imaging uploaded: yes via Electronic Transfer Additional providers added to Care Teams: Yes Additional Notes/Comments: referral information complete - 02/05/25 Enct routed to: Yes, NPM cardiac for triage Marcy Juarez documented in this encounter Plan of Treatment Not on file documented as of this encounter Visit Diagnoses Not on filedocumented in this encounter Care Teams Team MemberRelationshipSpecialtyStart DateEnd Pierce Cartwright MD PCP - GeneralFamily Medicine09/29/21 Unspecified, Cardiac Surgeon - [facility] [place] [address] SurgeonCardiac Surg02/02/2511/18/25 Self SurgeonFamily Mrvwcfvu59/14/25 Bee Saldana MD [address] [address] SurgeonCardiac Surg02/07/25documented as of this encounter
--- OUTSIDE RECORDS SUMMARY | 2025-02-12 12:54 | XMS_ITS | Clinical Summary ---
Author Organization [facility] Address [address] [place] [address] Care Team Providers Care Certified Professional Ergonomist Name Role Phone Pierce Cartwright MD Primary Care Provider [phone] Franklin Stevens MD Unavailable Allergies Active AllergyReactionsCriticalityNoted DateCommentsSulfa (Sulfonamide Antibiotics)12/11/2021 Medications MedicationSigDispense QuantityRefillsLast FilledStart DateEnd DateStatus aspirin 81 mg EC tablet Take 1 tablet every day by oral route.Active insulin aspart (NovoLOG) 100 unit/mL (3 mL) pen INJECT PER SCALEIF SUGAR IS <140 = 4U, 140-200 = 8U, OVER 200 12U (35 DAY SUPPLY)Active insulin glargine (Lantus) 100 unit/mL (3 mL) pen INJECT 16 UNITS SUB Q DAILY (83 DAY SUPPLY)Active levothyroxine (Synthroid, Levoxyl) 100 mcg tablet Take 1 tablet by mouth in the morning.Active liothyronine (Cytomel) 5 mcg tablet Take 2 tablets by mouth in the morning.Active NIFEdipine XL (Procardia XL) 30 mg 24 hr tablet Take 1 tablet by mouth in the morning.Active omeprazole (PriLOSEC) [address] capsule Take 1 capsule by mouth in the morning and at bedtime.Active sevelamer carbonate (Renvela) 800 mg tablet TAKE ONE TABLET BY MOUTH THREE TIMES A DAY WITH MEALS07/16/2022ctive Nephro-Jose 0.8 mg tablet Take 1 tablet by mouth in the morning.07/08/2022ctive hydrALAZINE (Apresoline) 50 mg tablet Indications:Coronary artery disease, unspecified vessel or lesion type, unspecified whether angina present, unspecified whether confederated coos or transplanted heartTAKE 1 TABLET (50 MG) BY MOUTH IN THE MORNING, AFTERNOON, AND AT BEDTIME. 270 tablet 3Active Additional Information Patient taking differently:50 mg oral2 times daily, Reported on 12/25/2024 potassium chloride CR (Klor-Con M20) 20 mEq ER tablet Take 20 mEq by mouth in the morning.09/09/2023ctive hydrOXYzine HCL (Atarax) 25 mg tablet Take 25 mg by mouth 1 (one) time.4Active magnesium oxide (Mag-Ox) 400 mg (241.3 mg magnesium) tablet Take 1 tablet by mouth in the morning.5Active montelukast (Singulair) 10 mg tablet Take 1 tablet by mouth in the morning.5Active calcium carbonate (Tums) 200 mg calcium (500 mg) chewable tablet Chew 1 tablet three times daily.Active pravastatin (Pravachol) 20 mg tablet Indications:Coronary artery disease involving confederated coos coronary artery of confederated coos heart without angina pectorisTake 1 tablet (20 mg) by mouth at bedtime. 90 tablet 5Active carvedilol (Coreg) 25 mg tablet Indications:Essential hypertensionTake 1.5 tablets 2 times daily 270 tablet 5Active isosorbide dinitrate (Isordil) 10 mg tablet Indications:Chest pain, unspecified typeTAKE 1 TABLET (10 MG) BY MOUTH IN THE MORNING, AT NOON, AND AT BEDTIME. 270 tablet ctive Active Problems ProblemNoted DateDiagnosed DateAcute combined systolic and diastolic heart dmlvbtd6212/22/20247439Mbmvwmqg53/03/2025ontact with and (suspected) exposure to other viral communicable icbnqpjp09/03/4566Zqjtd54/03/3738Upfqf13/03/2025Dyspnea 12/22/20245701Layoxcevi57/03/2025Insulin dependent diabetes mellitus type IA 12/22/2024Male erectile disorder (CODE)12/22/2024Nausea and qnyzrxzm06/03/2025 Gxftkizf62/03/2395Smhqxbtweysl49/03/2025Pleural xrawoxud37/03/2025Problem rvkixbly11/03/2025Shoulder joint pain12/22/2024Viral xwxrfysuixnctav65/03/2025 Abnormal cardiovascular stress test5Chronic foot ulcer06/19/2024Type 2 diabetes blrimowu14/02/9092Qkqypad51/04/2024hronic fatigue rvzdepdx65/04/2024 Diabetic zwsrteuqlk45/04/2024iastolic eebsgvxpehl11/04/2024End-stage renal wrnpaur6311/24/2023Erectile yfcbjeyyztq53/04/2024hronic GERD11/24/2023History of LA (myocardial infarction)11/24/2023History of yqzusbetpnfcc81/04/2024 Tjchkdgofkxymywvvexb65/04/8243Ovsmgoosuzrpmnkfwsx85/04/2024Iron deficiency xifwkp6011/24/2023Multiple nodules of lung11/24/2023Occult blood in stools 11/24/2023eritoneal dialysis hlhtwa9711/24/2023KI (acute kidney injury) 09/09/20235344Hwxgn64/20/2024History of fever09/09/2023Metabolic esahcmfg91/20/2024 Tvafbviqbipze31/20/2024iabetes mellitus with diabetic fkunbubwps97/20/2024 Abscess of right foot2/3Diabetic foot oduzdr0708/13/2022 Ovefcbcuepfged25/27/2023Vitamin D /10/2023oronary artery disease involving confederated coos coronary artery of confederated coos heart without angina pectoris 01/12/2022 Overview (01/12/2022): [...] pravastatin 40 mg daily. CKD (chronic kidney disease)01/12/20224410Bwabid60/24/2022nemia due to stage 3b chronic kidney nfadqfo9510/08/2021Edema of lower yjoyuuxea88/31/2020Hypertensive jkisbzrg41/31/2020Left ventricular systolic skwuvmfdhsz32/31/2020 Assessment & Plan (09/09/2023 3:59 PM EDT): [facility] II Continue GDMT- ASA, coreg, hydralazine, isordil, Diuretic therapy- fluid status managed per nephrology with peritoneal dialysis Monitor daily weights, I&O, fluid restriction 1.5-2L/day, renal function and electrolytes- Mitral valve muxtlzcjgtaqn46/31/2020 Assessment & Plan (09/09/2023 3:58 PM EDT): No concerning symptoms today Will monitor with echocardiogram Pericardial ucoushrl01/31/2020Heart valve disease Overview (08/25/2024): MR regurgitation CHF (congestive heart failure)Myocardial infarctionHistory of pleural effusion Panic attackSwelling of both lower extremitiesPVD (peripheral vascular disease) ProteinuriaSecondary hyperparathyroidism of renal originChronic sinusitisHistory of tobacco use Encounters DateTypeDepartmentCare EpfvGjchdcfxyoj91/31/2025Abstract [facility] [address] [place] [address] Sarita Diaz RN 01/19/2025Orders Only [facility] [address] [place] [address] Sarita Diaz RN Chronic systolic heart failure (CMS/HCC) (Primary Dx); Coronary artery disease involving confederated coos coronary artery of confederated coos heart without angina uvsczuya52/31/2025Orders Only [facility] [address] [place] [address] Sarita Diaz RN Chronic systolic heart failure (CMS/HCC) (Primary Dx)01/09/2025 12:31 PM EDT - 01/09/2025 11:59 [address] En[address] [facility] [address] [place] [address] ESRD (end stage renal disease) (CMS/HCC) Discharge Disposition: Home or Self Care ()01/03/2025Telephone [facility] [address] [place] [phone] Dakota Tanner MA Qhmipxfnjgw95/13/2025Orders Only [facility] [address] [facility] [place] [address] Pierce Ventura RN ESRD (end stage renal disease) ([facility]/HCC) (Primary Dx)12/27/2024Telephone [facility] [address] [place] [phone] Sarita Diaz RN MRI12/27/2024Telephone [facility] Vascular Cardiothoracic [facility] [place] [address] [place] [phone] Sarita Diaz RN MRI zxvdcexqat69/08/[address] [address] Jeffery Sosa MD Essential hypertension; Chest pain, unspecified type12/25/2024 9:[address] [address] Jeffery Sosa MD Heart failure with improved ejection fraction (HFimpEF) ([facility]) (Primary Dx); History of myocardial infarction; Primary hypertension; Abnormal cardiovascular stress test; Coronary artery disease involving confederated coos coronary artery of confederated coos heart without angina pectoris; ESRD (end stage renal disease) on dialysis (CMS/HCC)11/30/2024 12:54 PM EDT - 11/30/2024 11:59 PM EDTHospital Encounter [facility] [address] [place] [address] Coronary artery disease involving confederated coos coronary artery of confederated coos heart without angina pectoris Discharge Disposition: Home or Self Care (01)11/30/2024[place] [address] [place] [address] Jeffery Sosa MD Coronary artery disease involving confederated coos coronary artery of confederated coos heart without angina iubpvhyw13/26/2025 12:05 AM EDT - 11/14/2024 11:59 PM EDTHospital Encounter [facility] [address] [place] [address] Discharge Disposition: Home or Self Care (01)11/14/2024 - 11/14/2024 12:04 AM EDTHospital Encounter [facility] [address] [place] [address] Discharge Disposition: Home or Self Care ()from Last 3 Months Immunizations ImmunizationAdministration DatesNext DueHep B, adult02/22/2023,10/26/2022, 09/28/2022Influenza, Vbbwrfoykoo27/01/2024fizer SARS-CoV-2 Vaccination 06/11/2021neumococcal Conjugate PCV Unspecified Sars-Cov-2 Bvrvrgjrcro17/23/2022,06/11/2021,07/29/2020,07/08/2020 Family History Medical HistoryRelationNameCommentsCOPDFatherCoronary artery diseaseFather DiabetesFatherHyperlipidemiaFatherHypertensionFatherStrokeFatherAlzheimer's diseaseMotherBreast cancerMotherHypertensionMotherCoronary artery disease Paternal GrandmotherRelationNameStatusCommentsDaughter 1JordanAliveDauter 2 HannanAliveFatherDeceasedMotherDeceasedPaternal Grandmother Social History Tobacco UseTypesPacks/DayYears UsedDateSmoking Tobacco: [id number] - 1994Smokeless Tobacco: NeverAlcohol UseStandard Drinks/WeekCommentsNot Currently0 (1 standard drink = 0.6 oz pure alcohol)PHQ-2AnswerDate Recorded Patient Health Questionnaire-2 Jjxxp836UT Safety & EnvironmentAnswerDate RecordedFear of Current or Ex-PartnerNot on file05/13/2023Emotionally AbusedNot on file05/13/2023hysically AbusedNot on file05/13/2023Sexually AbusedNot on file05/13/2023hysically or Sexually AbusedNot on file05/13/2023Sex and Gender InformationValueDate RecordedSex Assigned at AbwlnTycb40/16/2025 10:31 AM EDT Legal EupUbdf6809/17/2021 9:41 PM EDTGender BngmjmohPdxe83/16/2025 10:31 AM EDT Sexual OrientationHeterosexual or Gnwchkue11/16/2025 10:31 AM EDT Last Filed Vital Signs Vital SignReadingTime TakenCommentsBlood Lyyqxdos447/7812/25/2024 9:48 AM EDT Awxmc179712/25/2024 9:48 AM HDRQnoirossepl58.7 ??C (98 ??F)10/31/2024 3:27 PM EDT Respiratory Qblm217810/19/2024 5:30 PM EDTOxygen Zsijliqgkv02%12/25/2024 9:48 AM EDTInhaled Oxygen Concentration--Tnodvw79.3 kg (208 lb)12/25/2024 9:48 AM EDT Setdfs498 cm (6' 4 )12/25/2024 9:48 AM EDTBody Mass Index25.321 9:48 AM EDT Plan of Treatment DateTypeDepartmentCare Team (Latest Contact Info)Insmxdooqqh07/06/2026 1:30 PM ESTFollow-Up [facility] [address] [place] [phone] Albin Saenz, [employer] [address] [place] [address] Health MaintenanceDue DateLast DoneCommentsCT Gocjqrqvyfjm78/12/1965FIT-DNA 1964FIT1964FOBT1964Medicare Annual Wellness (AWV)1964 Fspoixjfykvdt62/12/1965Diabetes: Retinopathy Ffcjbyhdb89/12/1975Diabetes: Urine Protein Btexuxbbo70/12/1984Adult Qmmbaxk8007/31/1986Zoster Vaccines (1 of 2) 2014COVID-19 Vaccine ( season)2021, 06/11/2021, 06/11/2021, Additional history existsInfluenza Vaccine (#1) Diabetes: Hemoglobin A1C/01/2025Depression Xwszekfnk36/12/2026 10/31/20241477Rdajzmdosro95Colorectal Cancer Hheifuwri50/27/2029 Pneumococcal Vaccine: Pediatrics (0 to 5 Years) and At-Risk Patients (6 to 64 Years)Dnwiqxniu53/01/2024HIB VaccinesAged OutNo longer eligible based on patient's age to complete this topicHPV VaccinesAged OutNo longer eligible based on patient's age to complete this topicIPV VaccinesAged OutNo longer eligible based on patient's age to complete this topicMeningococcal B VaccineAged OutNo longer eligible based on patient's age to complete this topicMeningococcal VaccineAged OutNo longer eligible based on patient's age to complete this topic Rotavirus VaccinesAged OutNo longer eligible based on patient's age to complete this topic Procedures Procedure NamePriorityDate/TimeAssociated DiagnosisCommentsCT ABDOMEN PELVIS W IV WTZDQHIOMkgvdeh58/21/2025 1:17 PM EDT ESRD (end stage renal disease) ([facility]) VASC US LOWER EXTREMITY VEIN MAPPING WITMXZAIIQzaweql19/11/2025 2:09 PM EDT Coronary artery disease involving confederated coos coronary artery of confederated coos heart without angina pectoris XR TRANSFER OF OUTSIDE EMXKCAsaxlyq18/26/2025 12:05 AM EDT US TRANSFER OF OUTSIDE TSJHXPxgevbt86/26/2025 12:00 AM EDT HEMOGLOBIN Q7OFhamsqq06/11/2025 12:31 PM EDT Type 2 diabetes mellitus with ESRD (end-stage renal disease) ([facility]) from Last 3 Months or Most Recently Relevant to Health Maintenance Results * CT abdomen pelvis w IV contrast (01/09/2025 1:17 PM EDT)Anatomical Region LateralityModalityBody, Pelvis, AbdomenComputed TomographySpecimen (Source) Anatomical Location / LateralityCollection Method / VolumeCollection Time Received Time01/11/2025 7:46 AM EDT Impressions 01/11/2025 7:57 AM EDT Exam confirm the presence of heterogeneously enhancing exophytic soft tissue mass at the inferior pole of the right kidney. This is worrisome for renal cell carcinoma until proven otherwise. This report contains a significant result and/or recommendation, which requires the attention of the licensed caregiver responsible for this patient. Therefore, I specifically designated this report to be telephoned by the radiology department Electronically signed: Bee Fuentes. Narrative 01/11/2025 7:[address] ABDOMEN PELVIS W IV CONTRAST 01/09/2025 12:45 PM CLINICAL INDICATION: Pretransplant evaluation with history of right renal lesion TECHNIQUE: Multiple detector CT axial slices of the abdomen and pelvis were obtained pre and post IV contrast. Multiplanar reformats were performed and viewed on a separate workstation and reviewed to further define anatomy and possible pathology. All CT scans at this facility use dose modulation, iterative reconstruction, and/or weight based dosing when appropriate to reduce radiation dose to as low as reasonably achievable COMPARISON: CT abdomen pelvis 08/30/2024. FINDINGS: Exam confirm the presence of heterogeneously enhancing 2.4 x 2.3 x 1.5 cm exophytic lesion at the inferior pole of the right kidney worrisome for renal cell carcinoma until proven otherwise. Otherwise both kidneys demonstrate multiple simple hypodense renal cysts. There is no hydronephrosis, renal swelling or perinephric stranding. There are a few vascular calcifications. There are severe coronary artery calcifications and mild cardiomegaly with no pericardial effusion. Lung bases are grossly unremarkable except for small right-sided pleural effusion and pleural parenchymal thickening. There are multiple calcified gallstones with no gross intrahepatic or extrahepatic bile ductal dilatation. Liver parenchyma is grossly unremarkable. Spleen, pancreas and glands are unremarkable. There are few left para-aortic lymph nodes none of which is grossly pathological by radiographic criteria possibly on reactive basis. There is satisfactory position of the neck cutaneous peritoneal dialysis catheter with the distal loop well formed and positioned at the pelvic floor posterior to the urinary bladder with small amount of peritoneal fluid. There is mild circumferential mucosal wall prominence of the right cecum and descending colon likely due to surrounding peritoneal fluid. Otherwise bowel loops are unremarkable. There is no bowel obstruction or focal transitional zone. There is no free peritoneal air. Urinary bladder is decompressed. There is moderate prostate gland hypertrophy. There are coarse circumferential intimal calcification at the infrarenal abdominal aorta with no hemodynamically significant stenosis or aneurysmal dilatation. There are coarse circumferential intimal calcification of both common iliac arteries. Both external iliac arteries are grossly unremarkable. There are heavy vascular calcifications of both internal iliac arteries. There is prominent Schmorl's node at the upper endplate of L4 and mild anterior wedging at T10 and T11 likely are chronic degenerative basis. Procedure Note Bee Fuentes MD - 01/11/2025 CT ABDOMEN PELVIS W IV CONTRAST 01/09/2025 12:45 PM CLINICAL INDICATION: Pretransplant evaluation with history of right renallesion TECHNIQUE: Multiple detector CT axial slices of the abdomen and pelviswere obtained pre and post IV contrast. Multiplanar reformats were performedand viewed on a separate workstation and reviewed to further define anatomyand possible pathology. All CT scans at this facility use dose modulation, iterativereconstruction, and/or weight based dosing when appropriate to reduce radiation dose to aslow as reasonably achievable COMPARISON: CT abdomen pelvis 08/30/2024. FINDINGS: Exam confirm the presence of heterogeneously enhancing 2.4 x 2.3 x 1.5cm exophytic lesion at the inferior pole of the right kidney worrisome forrenal cell carcinoma until proven otherwise. Otherwise both kidneysdemonstrate multiple simple hypodense renal cysts. There is no hydronephrosis, renal swelling or perinephric stranding. There are a few vascularcalcifications. There are severe coronary artery calcifications and mild cardiomegaly withno pericardial effusion. Lung bases are grossly unremarkable except forsmall right-sided pleural effusion and pleural parenchymal thickening. There are multiple calcified gallstones with no gross intrahepatic or extrahepatic bile ductal dilatation. Liver parenchyma is grosslyunremarkable. Spleen, pancreas and glands are unremarkable. There are few left para-aortic lymph nodes none of which is grosslypathological by radiographic criteria possibly on reactive basis. There is satisfactory position of the neck cutaneous peritoneal dialysis catheter with the distal loop well formed and positioned at the pelvicfloor posterior to the urinary bladder with small amount of peritoneal fluid. There is mild circumferential mucosal wall prominence of the right cecumand descending colon likely due to surrounding peritoneal fluid. Otherwisebowel loops are unremarkable. There is no bowel obstruction or focaltransitional zone. There is no free peritoneal air. Urinary bladder is decompressed. There is moderate prostate glandhypertrophy. There are coarse circumferential intimal calcification at the infrarenal abdominal aorta with no hemodynamically significant stenosis oraneurysmal dilatation. There are coarse circumferential intimal calcification ofboth common iliac arteries. Both external iliac arteries are grosslyunremarkable. There are heavy vascular calcifications of both internal iliac arteries. There is prominent Schmorl's node at the upper endplate of L4 and mildanterior wedging at T10 and T11 likely are chronic degenerative basis. IMPRESSION: Exam confirm the presence of heterogeneously enhancing exophytic softtissue mass at the inferior pole of the right kidney. This is worrisome for renalcell carcinoma until proven otherwise. This report contains a significant result and/or recommendation, whichrequires the attention of the licensed caregiver responsible for this patient.Therefore, I specifically designated this report to be telephoned by the radiology department Electronically signed: Bee Fuentes. Authorizing ProviderResult TypeResult StatusKunal Shreya MDIMG CT PROCEDURESFinal Result * Vascular US lower extremity vein mapping bilateral (11/30/2024 2:09 PM EDT) Anatomical RegionLateralityModalityLower ExtremitiesUltrasoundSpecimen (Source)Anatomical Location / LateralityCollection Method / VolumeCollection TimeReceived Time11/30/2024 9:18 PM EDT Impressions 11/30/2024 9:18 PM EDT Bilateral: Right: Great saphenous vein appeared greater than 0.25 cm of the thigh. Prominent braching of GSV in mid to distal thigh. Great saphenous vein appeared greater than 0.20 cm - 0.25 cm of calf. Small saphenous vein appeared less than 0.20 cm entire calf. Left: Great saphenous vein appeared greater than ??0.25 cm of the thigh. Prominent braching of GSV in mid to distal thigh. Great saphenous vein appeared greater than ??0.25 cm of calf region. Small saphenous vein appeared less than 0.20 cm entire calf. ?? Conclusions: No evidence of thrombosis of both legs. Sizes of the veins as above Narrative 11/30/2024 9:18 PM EDT Procedure: The greater saphenous vein and small saphenous vein was evaluated in its entirety. It was examined for compressibility and measured in the transverse view. Procedure Note Mirtha Burden MD - 11/30/2024 Procedure: The greater saphenous vein and small saphenous vein wasevaluated in its entirety. It was examined for compressibility andmeasured in the transverse view. IMPRESSION: Bilateral: Right: Great saphenous vein appeared greater than 0.25 cm ofthe thigh. Prominent braching of GSV in mid to distal thigh. Greatsaphenous vein appeared greater than 0.20 cm - 0.25 cm of calf. Smallsaphenous vein appeared less than 0.20 cm entire calf. Left: Great saphenous vein appeared greater than 0.25 cm of the thigh.Prominent braching of GSV in mid to distal thigh. Great saphenous veinappeared greater than 0.25 cm of calf region. Small saphenous veinappeared less than 0.20 cm entire calf. Conclusions: No evidence of thrombosis of both legs. Sizes of the veins as above Authorizing ProviderResult TypeResult StatusAnthjuan j Colunga MDNORTHWEST [facility] CV VASCULAR PROCEDURESFinal Result * XR transfer of outside films (11/14/2024 12:05 AM EDT)Specimen (Source) Anatomical Location / LateralityCollection Method / VolumeCollection Time Received Time Narrative IMAGING - 11/14/2024 11:17 AM EDT This order has been auto-finalized and does not contain a result. Authorizing ProviderResult TypeResult StatusAnthjuan j Colunga MDG XR PROCEDURES Final ResultPerforming OrganizationAddressCity/State/ZIP CodePhone Number IMAGING * US transfer of outside films (11/14/2024 12:00 AM EDT)Specimen (Source) Anatomical Location / LateralityCollection Method / VolumeCollection Time Received Time Narrative IMAGING - 11/14/2024 11:17 AM EDT This order has been auto-finalized and does not contain a result. Authorizing ProviderResult TypeResult StatusAnthadventist [facility] Cristine [place] US PROCEDURES Final ResultPerforming OrganizationAddressCity/State/ZIP CodePhone Number IMAGING * (ABNORMAL) Hemoglobin A1c (08/30/2024 12:31 PM EDT)ComponentValueRef RangeTest MethodAnalysis TimePerformed AtPathologist SignatureHemoglobin A1C7.0(H)4.0 - 6.0 %08/31/2024 8:15 AM [facility] ([facility])Estimated Average Glucose 154mg/dL08/31/2024 8:15 AM [facility] ([facility])Specimen (Source) Anatomical Location / LateralityCollection Method / VolumeCollection Time Received TimeBloodVenous blood specimen / UnknownVenipuncture / Unknown 08/30/2024 12:31 PM EDT08/30/2024 12:48 PM EDT Narrative Authorizing ProviderResult TypeResult StatusSamer Lilia GEORGE BLOOD ORDERABLES Final ResultPerforming OrganizationAddressCity/State/ZIP CodePhone Number [facility] ([facility]) [address] [place] [address] from Last 3 Months or Most Recently Relevant to Health Maintenance Insurance Care Teams Team MemberRelationshipSpecialtyStart DateEnd Pierce Cartwright MD [address] [place], [place] [address] [place] [address] PCP - General12/11/21 Franklin Stevens MD [address] [place] [phone] Consulting PhysicianUrology08/30/24 Nephrology Consulting RxbdoazoqSebufbbqgu12/24/22
--- OUTSIDE RECORDS SUMMARY | 2025-02-12 12:55 | XMS_ITS | Encounter Summary ---
Author Organization [facility] Address [address] [place] [address] Care Team Providers Care Transportation Clerk Name Role Phone Pierce Cartwright MD Primary Care Provider [phone] Unspecified, Cardiac Surgeon - Unavailable U navailable Self Unavailable Unavailable Bee Saldana MD Unavailable Source Comments In the event this information is protected by the Federal Confidentiality of Alcohol and Drug AbusePatient Records regulations: The Federal rules restrict any use of the information to criminally investigate or prosecute any alcohol or drug abuse patient.[facility] Encounter Details DateTypeDepartmentCare Team (Latest Contact Info)Neolufxoemt92/14/2025Patient Update Cardiothoracic [address] [phone] Care Everywhere, Provider [address] [place] [address] Social History Tobacco UseTypesPacks/DayYears UsedDateSmoking Tobacco: NeverPassive Smoke Exposure: PastSmokeless Tobacco: NeverAlcohol UseStandard Drinks/WeekCommentsNot Currently0 (1 standard drink = 0.6 oz pure alcohol)PHQ-2AnswerDate RecordedPHQ-2 mpwfz080rea Deprivation IndexAnswerDate RecordedNational Score (1-100), lower number is lower swbx142904/08/2022State Score (1-10), lower number is lower riskNot on file3Data from: https://www.neighborhoodatlas.medicine.[facility].edu/. Last address used for mnknwrmrqex[address][birth year][place]08/2023Sex and Gender InformationValueDate Recorded Sex Assigned at GsohfNoeu05/18/2025 8:00 AM ESTLegal IjiYawo9206/10/2019 1:35 PM EDTGender NhlsnvnhPydu92/18/2025 8:00 AM ESTSexual OrientationNot on file documented as of this encounter Plan of Treatment Not on file documented as of this encounter Visit Diagnoses Not on filedocumented in this encounter Care Teams Team MemberRelationshipSpecialtyStart DateEnd Date Pierce Cartwright MD PCP - GeneralFamily Medicine09/29/21 Unspecified, Cardiac Surgeon - [address] [place] [address] SurgeonCardiac Surg02/02/2511/18/25 Self SurgeonFamily Ewgesdgm04/14/25 Bee Saldana MD [address] [place], [place] [id number] [address] SurgeonCardiac Surg02/07/25documented as of this encounter
--- OUTSIDE RECORDS SUMMARY | 2025-02-12 12:55 | XMS_ITS | Encounter Summary ---
Author Organization [facility] Address [address] [place], [place] [id number] Care Team Providers Care Head Packager Name Role Phone Pierce Cartwright MD Primary Care Provider [phone] Unspecified, Cardiac Surgeon - Unavailable U navailable Self Unavailable Unavailable Source Comments In the event this information is protected by the Federal Confidentiality of Alcohol and Drug AbusePatient Records regulations: The Federal rules restrict any use of the information to criminally investigate or prosecute any alcohol or drug abuse patient.[facility] Reason for Visit * ReasonCommentsInsurance Inquiry Encounter Details DateTypeDepartmentCare Team (Latest Contact Info)Ddqylrwjwma47/17/2025Telephone Cardiothoracic [address] [phone] Unspecified, Cardiac Surgeon - [address] [place], [place] [phone] Insurance Inquiry Social History Tobacco UseTypesPacks/DayYears UsedDateSmoking Tobacco: NeverPassive Smoke Exposure: PastSmokeless Tobacco: NeverAlcohol UseStandard Drinks/WeekCommentsNot Currently0 (1 standard drink = 0.6 oz pure alcohol)PHQ-2AnswerDate RecordedPHQ-2 brteu794rea Deprivation IndexAnswerDate RecordedNational Score (1-100), lower number is lower hwnr058104/08/2022State Score (1-10), lower number is lower riskNot on file3Data from: https://www.neighborhoodatlas.medicine.[facility].edu/. Last address used for xohewtlcujl[address]04/[birth year]22Sex and Gender InformationValueDate Recorded Sex Assigned at EbyeiZoij82/18/2025 8:00 AM ESTLegal OryPxjl1906/10/2019 1:35 PM EDTGender EehepgdqUtgi40/18/2025 8:00 AM ESTSexual OrientationNot on file documented as of this encounter Miscellaneous Notes * Telephone Encounter - Gabby Proctor - 02/05/2025 11:50 AM EST IN documented in this encounter Plan of Treatment Not on file documented as of this encounter Visit Diagnoses Not on filedocumented in this encounter Care Teams Team MemberRelationshipSpecialtyStart DateEnd Date Pierce Cartwright MD PCP - GeneralFamily Medicine09/29/21 Unspecified, Cardiac Surgeon - [address] [place] [address] SurgeonCardiac Surg02/02/2511/18/25 Self SurgeonFamily Xnpjnzur87/14/25documented as of this encounter
--- OUTSIDE RECORDS SUMMARY | 2025-02-12 12:55 | XMS_ITS | Encounter Summary ---
Author Organization [facility] Address [address] [place], [place] [id number] Care Team Providers Care Verifying Specialist Name Role Phone Pierce Cartwright MD Primary Care Provider [phone] Unspecified, Cardiac Surgeon - Unavailable U navailable Self Unavailable Unavailable Source Comments In the event this information is protected by the Federal Confidentiality of Alcohol and Drug AbusePatient Records regulations: The Federal rules restrict any use of the information to criminally investigate or prosecute any alcohol or drug abuse patient.[facility] Reason for Visit * ReasonCommentsAppointment Encounter Details DateTypeDepartmentCare Team (Latest Contact Info)Slpmhxmlbxp29/14/2025Telephone Cardiothoracic [address] [phone] Unspecified, Cardiac Surgeon - [address] [place], [place] [phone] Appointment Social History Tobacco UseTypesPacks/DayYears UsedDateSmoking Tobacco: NeverPassive Smoke Exposure: PastSmokeless Tobacco: NeverAlcohol UseStandard Drinks/WeekCommentsNot Currently0 (1 standard drink = 0.6 oz pure alcohol)PHQ-2AnswerDate RecordedPHQ-2 krfww739rea Deprivation IndexAnswerDate RecordedNational Score (1-100), lower number is lower qoxq471704/08/2022State Score (1-10), lower number is lower riskNot on file3Data from: https://www.neighborhoodatlas.medicine.[facility].edu/. Last address used for qnmxpbunxsf[address]/[birth year]22Sex and Gender InformationValueDate Recorded Sex Assigned at SbsamFhta10/18/2025 8:00 AM ESTLegal RpjDnuk6706/10/2019 1:35 PM EDTGender JpjrhelbVqhk11/18/2025 8:00 AM ESTSexual OrientationNot on file documented as of this encounter Miscellaneous Notes * Telephone Encounter - TarasDarron de la fuentemai - 02/02/2025 1:16 PM EST RECEIVED CALL FROM: Patient PATIENT INFORMATION: Name: Franklin Monzon JR : 1965 (home) [phone] (cell) Email: [email or web address] Referring Provider: No referring provider defined for this encounter. Phone: N/A Fax: Requested Surgeon: First Available/Unspecified Reason for appointment/diagnosis: Two coompletely blocked arteries calcified Ricardokathy February 02, 2025 1:17 PM documented in this encounter Plan of Treatment Not on file documented as of this encounter Visit Diagnoses Not on filedocumented in this encounter Care Teams Team MemberRelationshipSpecialtyStart DateEnd Date Pierce Cartwright MD PCP - GeneralFamily Medicine09/29/21 Unspecified, Cardiac Surgeon - [address] [place] [address] SurgeonCardiac Surg02/02/2511/18/25 Self SurgeonFamily Hiumznpz80/14/25documented as of this encounter
--- OUTSIDE RECORDS SUMMARY | 2025-02-12 12:55 | XMS_ITS | Clinical Summary ---
Author Organization [facility] Address [address] [place] [address] Care Team Providers Care Drift Miner Name Role Phone Pierce Cartwright MD Primary Care Provider [phone] Allergies Active AllergyReactionsCriticalityNoted DateCommentsSulfa AntibioticsUnknown 10/01/2021 Medications MedicationSigDispense QuantityRefillsLast FilledStart DateEnd DateStatus carvedilol (Coreg) 3.125 MG tablet Take 3.125 mg by mouth in the morning and 3.125 mg in the evening. Take with meals.Active hydrALAZINE (Apresoline) 50 MG tablet Take 50 mg by mouth in the morning and 50 mg before bedtime.Active pravastatin (Pravachol) 20 MG tablet Take 20 mg by mouthActive potassium chloride CR (Klor-Con M10) 10 MEQ ER tablet Take 10 mEq by mouth Daily Do not crush or chew.Active magnesium 30 MG tablet Take 30 mg by mouth in the morning and 30 mg before bedtime.Active omeprazole OTC (PriLOSEC OTC) 20 MG EC tablet Take 20 mg by mouth in the morning. Take before meals. Do not crush, chew, or split.Active sevelamer carbonate (Renvela) 800 MG tablet TAKE TWO TABLETS BY MOUTH THREE TIMES A DAY (WITH MEALS) AND TAKE ONE TABLET WITH SNACKS (7 TABLETSDAILY)4Active Lantus SoloStar 100 UNIT/ML pen INJECT 16 UNITS SUBCUTANEOUSLY DAILYActive aspirin 81 MG EC tablet Take 81 mg by mouth DailyActive Active Problems ProblemNoted DateDiagnosed DateUlcer of right foot with necrosis of bone 08/13/2022Ulcer of great toe, right, with necrosis of bone08/13/2022 Osteomyelitis of right foot08/13/2022bscess of right foot08/13/2022iabetic foot ulcer with fkyglebbzybir27/25/2023eripheral vascular disease, unspecified 08/13/2022 Resolved Problems ProblemNoted DateDiagnosed DateResolved DateUlcer of left foot08/13/2022 08/13/2022 Encounters DateTypeDepartmentCare InugKesykfgnoem51/22/2025 3:15 PM EDTProcedure Visit [facility] [address] [place] [address] Selam Larsen DPM Onychomycosis (Primary Dx); Type II diabetes mellitus with neurological manifestations (HCC); Peripheral vascular disease, unspecified; Status post amputation of foot, right (HCC); Corns and hqnfpndrcno10/22/2025amboo flowsheet [facility] [address] [place] [address] Selam Larsen DPM 12/11/2024Travelfrom Last 3 Months Family History Medical HistoryRelationNameCommentsDiabetesFatherHeart diseaseFather HyperlipidemiaFatherHypertensionFatherBreast cancerMotherHypertensionMother RelationNameStatusCommentsFatherDeceasedMotherDeceased Social History Tobacco UseTypesPacks/DayYears UsedDateSmoking Tobacco: NeverSmokeless Tobacco: Never Tobacco Cessation:Counseling Given: Not Answered Alcohol UseStandard Drinks/WeekCommentsNot Asked0 (1 standard drink = 0.6 oz pure alcohol)caffeine intake:1-2 cups per day soda/popSex and Gender Information ValueDate RecordedSex Assigned at BirthNot on fileLegal OdwVtjf7706/03/2022 9:34 PM EDTGender IdentityNot on fileSexual OrientationNot on file Last Filed Vital Signs Vital SignReadingTime TakenCommentsBlood Mlcmmgyl540/80005/11/2022 12:00 PM EST Pulse--Temperature--Respiratory Rate--Oxygen Saturation--Inhaled Oxygen Concentration--Ayipqf44.5 kg (193 lb)09/25/2024 1:26 PM XYHBiypge787 cm (6' 4 ) 09/25/2024 1:26 PM EDTBody Mass Index23.49009/25/2024 1:26 PM EDT Plan of Treatment DateTypeDepartmentCare Team (Latest Contact Info)Ngeyrpgubgy69/29/2025 3:15 PM ESTProcedure Visit [facility] [address] [place] [address] Selam Larsen, DPFrank [address] [place] [address] Health MaintenanceDue DateLast DoneCommentsCT Vetyspxbremj81/12/1965FIT-DNA 1965FIT1965FOBT1965 2217Rjlblurahbvwe92/12/1965COVID-19 Vaccine ( season)/, 07/29/2020, 07/08/2020Influenza Vaccine (#1)/5680Axpviqnnfyk97Colorectal Cancer Esrqacusm92/27/2029Pneumococcal Vaccine: Pediatrics (0 to 5 Years) and At-Risk Patients (6 to 64 Years)Aged OutNo longer eligible based on patient's age to complete this topic Insurance Care Teams Team MemberRelationshipSpecialtyStart DateEnd Pierce Cartwright MD [address] [place] [phone] PCP - GeneralFamily Medicine08/12/22
--- OUTSIDE RECORDS SUMMARY | 2025-02-12 13:02 | XMS_ITS | CCD ---
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 Role Phone Cristobal Butts Unavailable Douglas [...] Provider MD Cornelio Simon Attending Provider [phone] MD Ashutosh Thomas Other Provider MD Yvonne Barboza Other Provider HARRY Griggs Other Provider MD Sohan Kellogg Other Provider HARRY Griggs Attending Provider MD Gopal Larsen Emergency Provider MD Salvador Alonso Admit Provider MD Salvador Alonso Attending Provider MD Cristobal Butts Other Provider HARRY Lius Provider [phone] DO Scotty Kahn Attending Provider MD Sohan [...] Care Provider DO Lambert Blanc Emergency Provider [phone] MD Cornelio Simon Admit Provider MD Cornelio Simon Attending Provider [phone] MD Ashutosh Thomas Other Provider MD Yvonne Barboza Other Provider HARRY Griggs Other Provider MD Sohan Kellogg Other Provider HARRY Griggs Attending Provider MD Gopal Larsen Emergency Provider MD Salvador Alonso Admit Provider MD Cristobal Butts Other Provider HARRY Luis Other Provider DO Scotty Kahn Attending Provider MD Sohan Kellogg Attending Provider MD Caleb Farrar Admit Provider MD Caleb Farrar Attending Provider [phone] CRISTOBAL BUTTS Admitting Unavailable CRISTOBAL BUTTS Attending [...] Consulting Unavailable DO Vikash Pope Attending Provider [phone] Eddy Larsen Admitting Unavailable Hoy, M Primary [...] Unavailable Douglas Juárez MD Primary Care Provider [phone] Douglas Juárez MD Primary Care Provider [phone] EDDY LARSEN Attending Unavailable KYLIE, LEANN Isaacs Attending Unavailable CHAVA, EDDY Dial Referring Unavailable KYLIE, LEANN Isaacs Attending Unavailable EDDY LARSEN Attending Unavailable KYLIE, LEANN Isaacs Attending Unavailable CHAVA, EDDY H Attending Unavailable CHAVA, EDDY Dial Attending Unavailable CHAVA, EDDY H Attending Unavailable STEFFI, MULUGETA Referring Unavailable RABETS, GOPAL Attending Unavailable MOUKARBEL, CASIMIRO Referring Unavailable MOUKARBEL, CASIMIRO Attending Unavailable MOUKARBEL, CASIMIRO Attending Unavailable STEFFI, MULUGETA Referring Unavailable AKRAWI, SAMER Referring Unavailable AKRAWI, SAMER Referring Unavailable MOUKARBEL, CASIMIRO Admitting Unavailable MOUKARBEL, CASIMIRO Attending Unavailable AKRAWI, SAMER Referring Unavailable DERISO, OTIS Referring Unavailable DERISO, OTIS Referring Unavailable MOUKARBEL, CASIMIRO Referring Unavailable DERISO, OTIS Referring Unavailable DOREEN, Attending Unavailable Allergies Allergy ClassificationReported Allergen(s)Allergy TypeDate of OnsetReaction(s) Facility (4 sources)sulfaSALAzineDrug AllergyEquityMetrixLiberty Hospital Manufacturers' Inventory Other (20 sources)Sulfonamides (Antibiotic); Translations: [SULFA (SULFONAMIDE ANTIBIOTICS)]Propensity to adverse reactions to [id number] Clinic (1 source)SulfonamideDrug allergyBaystate Noble HospitalIntrallectSoutheast Arizona Medical CenterLivBlends Other (1 source)Sulfonamides (Antibiotic)Drug allergy (disorder)[facility] Repository (1 source)Sulfonamides (Antibiotic)Drug allergy (disorder)46-44-1971Qabb[facility]epkNor[facility] (2 sources)Sulfonamides (Antibiotic); Translations: [sulfa drugs]Propensity to adverse reactions to drugPatient reported problems (finding)[facility] [place] Medications Current Medications MedicationDrug Class(es)DatesSig (Normalized)Sig (Original)aspirin 81 mg delayed release oral tablet (20 sources)Platelet Aggregation Inhibitor, Nonsteroidal Anti-inflammatory Drug Start: 81-99-6001ztef 1 tablet by mouth once dailyAspirin 81 mg tablet,delayed release (DR/EC) Active 81 MG PO Daily May 05, 2022 1:00amtake 1 tablet by mouth once dailyAspirin 81 81 MG 1 tablet Orally Once a day Activeaspirin 81 mg cap Take by mouth. 0 ActiveComment on above:Take by mouth.carvedilol 25 mg oral tablet (20 sources)alpha-Adrenergic Luis, beta-Adrenergic BlockerStart: 05-05-2022 take 1 tablet by mouth twice dailycarvedilol 25 mg Tab 25 mg = 1 tab(s), Oral, BID, Refills(s) 0 Start Date: 09/09/23 Status: OrderedStart: 10-77-7315yakk 37.5 mg by mouth twice dailyCarvedilol Active 37.5 MG PO Twice daily May 05, 2022 1:00amtake 1 tablet by mouth in the morningcarvedilol (Coreg) 3.125 MG tablet Take 3.125 mg by mouth in the morning and 3.125 mg in the evening. Take with meals. ActiveComment on above:Take 25 mg by mouth twice daily with meals. 1/2 tabstwice dailycholecalciferol 0.05 mg oral capsule (11 sources)Vitamin DStart: 99-63-8581bvtq 1 capsule by mouth once daily Cholecalciferol (Vitamin D3) (Vitamin D3) 50 mcg (2,000 unit) capsule Active 50 MCG PO Daily May 05, 2022 1:00amdonepezil (1 source)Aricept Activefluticasone propionate 0.05 mg/actuat metered dose nasal spray (1 source)CorticosteroidStart: 02-63-5805Byfkcyq 0.05 mg/inh Albert 1 spray(s), Nasal, Daily, Refill(s) 0 Start Date: 09/09/23 Status: OrderedhydrALAZINE hydrochloride 50 mg oral tablet (20 sources)Arteriolar VasodilatorStart: 19-79-4395oswp 1 tablet by mouth three times dailyHydralazine 50 mg tablet Active 50 MG PO Three times daily May 05, 2022 1:00amComment on above:Take 50 mg by mouth three times daily.Insulin Aspart U-100 100 unit/mL (3 mL) insulin pen (1 source)Start: 57-87-1493Jwshlka Aspart U-100 100 unit/mL (3 mL) insulin pen Active 0 .ROUTE .COMPLEX May 05, 2022 1:00am 140-200 give 8 units >200 give 12 unitsinsulin aspart, human (20 sources)Insulin AnalogStart: 53-85-8336Ovdqwkw Aspart U-100 Active 0 .ROUTE .COMPLEX May 05, 2022 1:00am 140-200 give 8 units >200 give 12 units Start: 62-05-5821Rekarxq Aspart U-100 Active 0 .ROUTE .COMPLEX May 05, 2022 12:00am 140-200 give 8 units >200 give 12 unitsStart: 12-72-7885Pvlfjog Aspart U-100 Active 0 .ROUTE .COMPLEX May 05, 2022 12:00am Per ptInsulin Aspart FlexPen 100 UNIT/ML INJECT PER SCALEIF SUGAR IS Active3 ml insulin glargine 100 unt/ml pen injector (20 sources)Insulin AnalogStart: 51-60-4415Hjmuyx Solostar Pen 100 units/mL subcutaneous solution 16 unit(s), SubCutaneous, Daily, Refills(s) 0 Start Date: 09/09/23 Status: OrderedLantus SoloStar 100 UNIT/ML pen INJECT 16 UNITS SUBCUTANEOUSLY DAILY ActiveInsulin Glargine (Lantus U-100 Insulin) 100 unit/mL solution (11 sources)Start: 62-76-4474fhctdx 16 [IU] by subcutaneous injection once daily in the morningInsulin Glargine (Lantus U-100 Insulin) 100 unit/mL solution Active 16 UNIT SUBCUT Every morning May 05, 2022 1:00amStart: 05-05-2022 inject 16 [IU] by subcutaneous injection once daily in the morningInsulin Glargine (Lantus U-100 Insulin) 100 unit/mL solution Active 16 UNIT SUBCUT Every morning May 05, 2022 12:00amStart: 15-76-0746Iwiucox Glargine (Lantus U- 100 Insulin) 100 unit/mL solution Active 0 .ROUTE .COMPLEX May 05, 2022 12:00am 16 U in the AMStart: 46-19-1337Ueaxket Glargine (Lantus U-100 Insulin) 100 unit/mL solution Active 0 .ROUTE .COMPLEX May 05, 2022 12:00am Per pt 10 ml iron sucrose 20 mg/ml injection (3 sources)Parenteral Iron ReplacementStart: 70-06-7298zmrs 10 mL intravenously every weekVenofer 20 MG/ML 200 mg or 10 ml Intravenous weekly for 35 days Jun, Activetake 10 mL intravenously every weekVenofer 20 MG/ML 200 mg or 10 ml Intravenous weekly for 35 days Activeisosorbide mononitrate 10 mg oral tablet (10 sources)Nitrate Vasodilatortake 1 tablet by mouth every eight hours Isosorbide Mononitrate 10 MG 1 tablet Orally THREE TIMES A DAY Activeisosorbide dinitrate 10 mg oral tablet (12 sources)Nitrate VasodilatorStart: 55-48-3510ixcp 1 tablet by mouth twice dailyisosorbide dinitrate 10 mg Tab 10 mg = 1 tab(s), Oral, BID, Refills(s) 0 Start Date: 09/09/23 Status: OrderedStart: 87-84-7959lzer 1 tablet by mouth three times dailyIsosorbide Dinitrate 10 mg tablet Active 10 MG PO Three times daily May 05, 2022 1:00amlevothyroxine sodium 0.1 mg oral tablet (20 sources)l-ThyroxineStart: 27-42-5818valq 1 tablet by mouth once daily levothyroxine 100 mcg (0.1 mg) Tab 100 mcg = 1 tab(s), Oral, Daily, Refills(s) 0 Start Date: 09/09/23 Status: OrderedStart: 02-09-2940zzyh 1 tablet by mouth once dailyLevothyroxine 100 mcg tablet Active 100 MCG PO Daily May 05, 2022 1:00amtake 1 tablet by mouth once daily in the morningLevothyroxine Sodium 100 MCG 1 tablet in the morning on an empty stomach Orally Once a day Activetake 1 capsule by mouth once daily before breakfastlevothyroxine 100 mcg cap Take 100 mcg by mouth daily before breakfast. 0 ActiveComment on above:Take 100 mcg by mouth daily before breakfast.liothyronine sodium 0.005 mg oral tablet (19 sources)l-TriiodothyronineStart: 38-38-7755xwcp 2 tablets by mouth once dailyliothyronine 5 mcg Tab 10 mcg = 2 tab(s), Oral, Daily, Refills(s) 0 Start Date: 09/09/23 Status: OrderedStart: 12-52-1802ljfv 1 tablet by mouth once daily Liothyronine 5 mcg tablet Active 10 MCG PO Daily May 20, 2022 1:00amStart: 20-03-5563exzw 10 ug by mouth once dailyLiothyronine Active 10 MCG PO Daily May 20, 2022 1:00amtake 2 tablets by mouth once dailyLiothyronine Sodium 5 MCG TAKE TWO TABLETS BY MOUTH ONCE DAILY Oral for 30 Activemagnesium gluconate 550 mg oral tablet (13 sources)take 1 tablet by mouth in the morningmagnesium 30 MG tablet Take 30 mg by mouth in the morning and 30 mg before bedtime. Activemagnesium oxide 400 mg oral tablet (2 sources)Start: 23-71-8528lxtu 1 tablet by mouth once dailyMagnesium Oxide 400 mg (241.3 mg magnesium) tablet Active 0 .ROUTE .COMPLEX December 07, 2023 7:45am TAKE ONE TABLET BY MOUTH ONCE DAILYStart: 12-07-2023 End: 37-55-2793qvmh 1 tablet by mouth once dailyMagnesium Oxide 400 mg magnesium tablet Discontinued 400 MG PO Daily December 07, 2023 12:00am December 07, 2023 7:45amMultivitamin (Multi-Vitamin) Tablet (1 source)Start: 17-47-9934aqwo 1 tablet by mouth once dailyMultivitamin (Multi- Vitamin) Tablet Active 1 TAB PO Daily May 05, 2022 12:00amMultivitamin preparation (14 sources)Start: 07-37-2656knbv 1 tablet by mouth once dailyMultivitamin Active 1 TAB PO Daily May 05, 2022 1:00amStart: 58-07-9903shkl 1 tablet by mouth once dailyMultivitamin Active 1 TAB PO Daily May 05, 2022 12:00amtake 1 tablet by mouth once dailyMulti Vitamin - 1 tablet Orally Once a day ActiveNephro-Jose (1 source)Start: 81-83-4739bnpb 1 tablet by mouth once dailyNephro-Jose 1 tab(s), Oral, Daily, Refill(s) 0 Start Date: 09/09/23 Status: OrderedNIFEdipine 30 mg oral tablet (20 sources)Dihydropyridine Calcium Channel BlockerStart: 78-46-2338osob 1 tablet by mouth once dailyNIFEdipine 30 mg ER Tab 30 mg = 1 tab(s), Oral, Daily, Refills(s) 0 Start Date: 09/09/23 Status: OrderedStart: 29-10-4052kskk 1 tablet by mouth twice dailyNifedipine 30 mg tablet extended release 24hr Active 30 MG PO Twice daily May 05, 2022 1:00amtake 1 tablet by mouth every twelve hoursNIFEdipine ER 30 MG 1 tablet on an empty stomach Orally TWICE A DAY Active take 1 tablet by mouth once dailyNIFEdipine XL (ADALAT CC) 30 mg 24 hr tablet Take 30 mg by mouth once daily. 0 ActiveComment on above:Take 30 mg by mouth once daily.omeprazole 40 mg delayed release oral capsule (20 sources)Proton Pump InhibitorStart: 44-16-3253ohjj 1 capsule by mouth twice dailyomeprazole 40 mg Cap-DR 40 mg = 1 cap(s), Oral, BID, Refills(s) 0 Start Date: 09/09/23 Status: OrderedStart: 96-95-3414wcyf 40 mg by mouth once daily Omeprazole Active 40 MG PO Daily May 05, 2022 12:00amtake 1 tablet by mouth before mealtimeomeprazole OTC (PriLOSEC OTC) 20 MG EC tablet Take 20 mg by mouth in the morning. Take before meals. Do not crush, chew, or split. Active take 1 tablet by mouth once dailyPriLOSEC OTC 20 MG 1 tablet 30 minutes before morning meal Orally Once a day ActiveComment on above:Take 20 mg by mouth once daily.microencapsulated potassium chloride 20 meq extended release oral tablet (20 sources)Start: 12-08-2023 End: 34-59-1387bbru 1 tablet by mouth once dailyPotassium Chloride 20 mEq tablet,ER particles/crystals Active 0 .ROUTE .COMPLEX June 0153:08pm TAKE ONE TABLET BY MOUTH ONCE DAILYStart: 12-08-2023 End: 84-71-8247mvst 1 tablet by mouth once dailyPotassium Chloride 20 mEq tablet extended release Discontinued 20 MEQ PO Daily December 08, 2023 12:00am December 08, 2023 3:22pmStart: 05-05-2022 End: 01-21-6944gdvk 1 tablet by mouth once dailyPotassium Chloride 10 mEq tablet extended release Discontinued 10 MEQ PO Daily May 05, 2022 1:00am May 20, 2022 2:00pmpotassium chloride CR (Klor-Con M10) 10 MEQ ER tablet Take 10 mEq by mouth Daily Do not crush or chew. Activetake 1 tablet by mouth twice dailypotassium chloride (K-TAB) 10 mEq tablet Take 10 mEq by mouth twice daily. 0 ActiveComment on above:Take 10 mEq by mouth twice daily.pravastatin sodium 40 mg oral tablet (18 sources)HMG-CoA Reductase InhibitorStart: 89-64-8054wmll 1 tablet by mouth once dailypravastatin 40 mg Tab 40 mg = 1 tab(s), Oral, Daily, Refills(s) 0 Start Date: 09/09/23 Status: Orderedpravastatin (Pravachol) 20 MG tablet Take 20 mg by mouth Activesevelamer carbonate 800 mg oral tablet (18 sources)Phosphate BinderStart: 36-07-1398hwpvxzgxu carbonate (Renvela) 800 MG tablet TAKE TWO TABLETS BY MOUTH THREE TIMES A DAY (WITH MEALS) AND TAKE ONE TABLET WITH SNACKS (7 TABLETS DAILY) 03/01/2024 ActiveStart: 41-82-3341dyea 1 tablet by mouth once dailysevelamer 800 mg oral tablet 800 mg = 1 tab(s), Oral, Daily, Refills(s) 0 Start Date: 09/09/23 Status: OrderedStart: 06-10-2023 End: 92-97-0126Crsevprxa Carbonate 800 mg tablet Active 0 .ROUTE .COMPLEX 210 February 06, 2024 1:17pm TAKE TWO TABLETS BY MOUTH THREE TIMES A DAY (WITH MEALS) AND TAKE ONE TABLET WITH SNACKS (7 TABLETS DAILY)Start: 06-10-2023 End: 83-40-0959evia 2 tablets by mouth three times daily at mealtimeSevelamer Carbonate 800 mg tablet Discontinued 1600 MG PO Three times daily 540 90 June 092:00am June 10, 2023 2:10pm must administer with a meal/foodsodium bicarbonate 650 mg oral tablet (20 sources)Start: 91-72-7592coon 2 tablets by mouth twice dailySodium Bicarbonate 650 mg Tablet Active 1300 MG PO Twice daily 120 30 May 08, 2022 1:00amStart: 69-22-1514lxcj 1300 mg by mouth twice dailySodium Bicarbonate Active 1300 MG PO Twice daily 120 May 08, 2022 1:00amtake 1 tablet by mouth every twelve hoursSodium Bicarbonate 650 MG 1 tab(s) Orally bid for 90 day(s) ActiveComment on above:Take 650 mg by mouth twice daily. Completed/Discontinued Medications MedicationDrug Class(es)DatesSig (Normalized)Sig (Original)acetaminophen 325 mg / HYDROcodone bitartrate 5 mg oral tablet (6 sources)Opioid AgonistStart: 05-28-2022 End: 11-70-8772baqa 1 tablet by mouth every six hours as needed for pain Hydrocodone-Acetaminophen 5-325 mg tablet Discontinued 1 TAB PO Q6H as needed for pain 16 10May 28, 2022 June 11, 2022 4:14pmamoxicillin 500 mg / clavulanate 125 mg oral tablet (10 sources)Penicillin-class AntibacterialStart: 05-08-2022 End: 20-56-5180eovh 1 tablet by mouth twice dailyAmoxicillin-Pot Clavulanate (Augmentin) 500-125 mg tablet Discontinued 1 TAB PO Twice daily 28 May 08, 2022 1:00am May 25, 2022 3:13pmB Complex-Vitamin C-Folic Acid (Nephro- Jose) 0.8 mg tablet (2 sources)Start: 12-08-2023 End: 48-59-5854cnfl 1 tablet by mouth once dailyB Complex-Vitamin C-Folic Acid (Nephro-Jose) 0.8 mg tablet Discontinued 0 .ROUTE .COMPLEX December 08, 2023 3:21pm August 10, 2024 1:33pm TAKE ONE TABLET BY MOUTH ONCE DAILYStart: 12-08-2023 End: 23-39-2856gess 1 tablet by mouth once dailyB Complex-Vitamin C-Folic Acid (Nephro-Jose) 0.8 mg tablet Discontinued 1 TAB PO Daily 2023 12:00am December 08, 2023 3:21pmbumetanide 2 mg oral tablet (20 sources)Loop DiureticStart: 06-15-2022 End: 95-49-9688ejzn 1 tablet by mouth twice dailyBumetanide 2 mg Tablet Discontinued 2 MG PO BID@0800,1600 60 June 15, 2022 12:00am August 10, 2024 1:33pmStart: 05-05-2022 End: 43-23-3166dgyh 1 tablet by mouth once dailyBumetanide 2 mg tablet Discontinued 2 MG PO Daily May 05, 2022 1:00am June 15, 2022 2:21pm take 2 mg by mouth every twenty-four hoursBumetanide 2 MG as directed Orally every 24 hrs ActiveComment on above:Take 2 mg by mouth once daily.clopidogrel 75 mg oral tablet (15 sources)P2Y12 Platelet InhibitorStart: 05-05-2022 End: 24-97-2402xlma 1 tablet by mouth once dailyClopidogrel 75 mg tablet Discontinued 75 MG PO Daily May 05, 2022 1:00am May 20, 2022 1:55pm take 1 tablet by mouth every twenty-four hoursPlavix 75 MG 1 tablet Orally Once a day Activecyproheptadine hydrochloride 4 mg oral tablet (8 sources)Start: 05-20-2022 End: 83-59-3133dnfu 1 tablet by mouth twice dailyCyproheptadine 4 mg tablet Discontinued 4 MG PO Twice daily May 20, 2022 1:00am August 10, 2024 1:34pm Start: 46-39-3861jbde 4 mg by mouth once dailyCyproheptadine Active 4 MG PO Daily May 20, 2022 12:00amertapenem 1000 mg injection (7 sources)Penem AntibacterialStart: 05-22-2022 End: 43-07-5449accd 1 g intravenously once dailyErtapenem (Invanz) 1 gram recon soln Discontinued 0.5 GM IV Daily 40 40 May 22, 2022 1:00am June 15, 2022 3:19pm at homeezetimibe 10 mg oral tablet (20 sources)Dietary Cholesterol Absorption InhibitorStart: 05-05-2022 End: 48-53-3009zujs 1 tablet by mouth once dailyEzetimibe 10 mg tablet Discontinued 10 MG PO Daily May 05, 2022 1:00am August 10, 2024 1:34pm Comment on above:Take 10 mg by mouth once daily.ferrous sulfate 325 mg oral tablet (20 sources)Start: 05-05-2022 End: 07-41-6483fqni 1 tablet by mouth once dailyFerrous Sulfate 325 mg (65 mg iron) tablet Discontinued 325 MG PO Daily May 05, 2022 1:00am May 20, 2022 1:56pmtake 1 tablet by mouth once dailyFerrous Sulfate 325 (65 Fe) MG 1 tablet Orally Once a day ActiveComment on above:Take 325 mg by mouth daily with breakfast.insulin detemir (15 sources)Insulin Analoginsulin detemir (LEVEMIR FLEXPEN SUBCUTANEOUS) Inject subcutaneously. 0 ActiveComment on above:Inject subcutaneously.Multivitamin capsule (15 sources)take 1 capsule by mouth once dailyMultivitamin capsule Take 1 capsule by mouth once daily. 0 ActiveComment on above:Take 1 capsule by mouth once daily.Multivitamin Tablet (1 source)Start: 05-05-2022 End: 82-86-2856thdt 1 tablet by mouth once dailyMultivitamin Tablet Discontinued 1 TAB PO Daily May 05, 2022 1:00am August 10, 2024 1:32pm Problems Active Problems Problem ClassificationProblemDateDocumented DateEpisodic/ChronicAcute and unspecified renal failure (8 sources)Injury of kidney; Translations: [Acute kidney failure, unspecified] Onset: [id number] on above:Problem List clean-up per request of Phys. EHR CmteAnxiety disorders (1 source)Fcdbjvy40-47-0225HugicrvPfunxwt dysrhythmias (1 source)Palpitations; Translations: [PALPITATIONS]Onset: 32-74-5784Esgqomrz Chronic kidney disease (20 sources)Chronic kidney disease stage 4; Translations: [Chronic kidney disease, stage 4 (severe)]Onset: 06-03-2021 Resolved: 47-05-2013AiwkpytOdthtgl on above:Problem List clean-up per request of Phys. EHR CmteChronic kidney disease (1 source)Chronic kidney disease; Translations: [Stage 3b chronic kidney disease (HCC)]Onset: 02-49-3061Nudymgd ulcer of skin (20 sources)Non-pressure chronic ulcer of other part of right foot with necrosis of bone; Translations: [Ulcer of right foot with necrosis of bone]Onset: 05-04-2022 Resolved: 24-32-644770786649-67-1482WqiecblWbrsurk on above:Problem List clean-up per request of Phys. EHR CmteCongestive heart failure; nonhypertensive (8 sources)Heart failure, unspecified; Translations: [Acute combined systolic and diastolic heart failure]Onset: 979307-32-0358FocixdaLpldlwkb atherosclerosis and other heart disease (20 sources)Coronary arteriosclerosis; Translations: [Atherosclerotic heart disease of [place] coronary artery without angina pectoris]Onset: 06-03-2021 Resolved: 30-15-8131QgnundwEtjymvdjcy and other anemia (20 sources)Anemia of renal disease; Translations: [Anemia in chronic kidney disease]28-83-4213DjckazvHzubkcl on above:Problem List clean-up per request of Phys. EHR CmteDeficiency and other anemia (8 sources)Anemia in chronic kidney disease; Translations: [Anemia due to stage 3b chronic kidney disease (HCC)]Onset: 06-03-2021 Resolved: 61-68-7214TqwjuvqGgppivljur and other anemia (8 sources)Anemia in chronic kidney disease; Translations: [Anemia in chronic kidney disease]ChronicDeficiency and other anemia (20 sources)Anemia co-occurrent and due to chronic kidney disease stage 3; Translations: [Anemia due to stage 3b chronic kidney disease (HCC)]Onset: 39-01-2627ZrtrexfMxdavasckh and other anemia (10 sources)Iron deficiency anemia; Translations: [Iron deficiency anemia, unspecified]Onset: 92-80-3855SmxvfbeiUgdxdhiqin and other anemia (1 source)Iron deficiency anemia, unspecifiedEpisodicDeficiency and other anemia (6 sources)Anemia; Translations: [Anemia, unspecified]Onset: 06-12-2022 27-72-1312XtdswxzaIbviswf on above:Problem List clean-up per request of Phys. EHR CmteDeficiency and other anemia (1 source)Deficiency and other anemia; Translations: [Anemia due to stage 3b chronic kidney disease (HCC)]Onset: 17-41-3549Jkorbffj mellitus with complications (20 sources)Disorder of kidney due to diabetes mellitus; Translations: [Type 2 diabetes mellitus with diabetic nephropathy]Onset: 06-03-2021 Resolved: 16-11-2785HjozabdRajffsq on above:Problem List clean-up per request of Phys. EHR CmteDiabetes mellitus without complication (1 source)Diabetes -27-7217HbozgbkStuwnyhu mellitus without complication (1 source)Diabetes mellitus without complication; Translations: [Type 2 diabetes mellitus with foot ulcer]Onset: 94-88-1611Hshlhvwnm of lipid metabolism (3 sources)Hyperlipidemia, unspecified; Translations: [Hypercholesterolemia] Onset: 409465-78-1614OabmwwwAnjvqbmkxo disorders (3 sources)Gastroesophageal reflux disease without esophagitis; Translations: [Gastro-esophageal reflux disease without esophagitis]Onset: 08-09-2944Uewwgyk Essential hypertension (4 sources)Essential (primary) hypertension; Translations: [Essential hypertension]Onset: 892145-51-2330XeclzvzEsuux of unknown origin (13 sources)Fever; Translations: [Fever, unspecified]Onset: 801361-90-3052 EpisodicComment on above:Problem List clean-up per request of Phys. EHR Cmte Fluid and electrolyte disorders (20 sources)Acidosis; Translations: [Metabolic acidosis]Onset: 06-03-2021 Resolved: 10-78-7713QnguzzqtQyphvyu on above:Problem List clean-up per request of Phys. EHR CmteHeart valve disorders (1 source)Mitral valve regurgitationOnset: [id number] Hypertension with complications and secondary hypertension (20 sources)Malignant hypertensive chronic kidney disease; Translations: [Hypertensive chronic kidney disease with stage 1 through stage 4 chronic kidney disease, or unspecified chronic kidney disease]Onset: 06-03-2021 Resolved: 84-41-8104LpzaqysSzcaeog on above:Problem List clean-up per request of Phys. EHR CmteInfective arthritis and osteomyelitis (except that caused by tuberculosis or sexually transmitted disease) (20 sources)Osteomyelitis; Translations: [Osteomyelitis, unspecified]Onset: 004053-99-7691IyaeflpRupvodq on above:Problem List clean-up per request of Phys. 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 EHR CmteOther and ill-defined heart disease (4 sources)Heart disease, unspecified; Translations: [HEART DISEASE UNSPECIFIED] Onset: 72-87-2193ZxoznfpKwssh bone disease and musculoskeletal deformities (9 sources)History of amputation of right foot; Translations: [Acquired absence of right foot]41-78-8772LhgjhquPrkeg circulatory disease (1 source)Other specified symptoms and signs involving the circulatory and respiratory systemsEpisodicOther connective tissue disease (1 source)History of gumpdwlfzqjof10-89-3646EvsuolcmTwrba endocrine disorders (6 sources)Hyperparathyroidism; Translations: [Hyperparathyroidism, unspecified] 25-89-5890KzofhciOosok endocrine disorders (2 sources)Hyperparathyroidism, unspecified; Translations: [HYPERPARATHYROIDISM UNSPECIFIED]Onset: 26-62-2581VyowmdeIsgcn gastrointestinal disorders (1 source)Abnormal feces; Translations: [Other fecal abnormalities]Onset: 46-84-7180IbpxyessBlxoy gastrointestinal disorders (2 sources)Occult blood in golaes13-83-6355GchzzfrpIezry injuries and conditions due to external causes (7 sources)Surgical wound finding; Translations: [Other injury of unspecified body region, initial encounter]77-74-1228KdlfyattUzhwhnv on above:Problem List clean-up per request of Phys. EHR CmteOther lower respiratory disease (1 source)Multiple nodules of pyrj91-84-9211IoygolspQitkg lower respiratory disease (2 sources)Other nonspecific abnormal finding of lung field; Translations: [Other nonspecific abnormal findingof lung field]Onset: 28-45-0356IzdcryfdFqnqq lower respiratory disease (2 sources)Shortness of breath; Translations: [Shortness of breath]Onset: 14-27-5017PyvpocoqIiwfw male genital disorders (1 source)Cjdxnmzic54-03-8311KmbpumjPtowq nervous system disorders (6 sources)Acute postoperative pain; Translations: [Other acute postprocedural pain]01-50-5649DngexdvzHutcepj on above:Problem List clean-up per request of Phys. EHR CmteOther nutritional; endocrine; and metabolic disorders (1 source)Loss of appetite; Translations: [Anorexia]53-58-0696RatfkfhuQrgul nutritional; endocrine; and metabolic disorders (1 source)Anorexia; Translations: [Anorexia]56-03-6943DhleeicrRordy screening for suspected conditions (not mental disorders or infectious disease) (6 sources)Other specified abnormal findings of blood chemistry; Translations: [Abnormal result of other cardiovascular function study]Onset: 09-30-2021 EpisodicOther skin disorders (6 sources)Callosity; Translations: [Corns and callosities]60-04-1726Qhsnciyr Peripheral and visceral atherosclerosis (20 sources)Peripheral vascular disease; Translations: [Peripheral vascular disease, unspecified]Onset: 491859-89-3719LhwgcroNcsxmabd codes; unclassified (4 sources)History of clinical finding in subject; Translations: [Personal history of other specified conditions]35-89-2530ZchcjeivYpgzbap on above:Problem List clean-up per request of Phys. EHR CmteResidual codes; unclassified (1 source)Edema, unspecified; Translations: [EDEMA UNSPECIFIED]Onset: 05-18-2022 EpisodicRespiratory failure; insufficiency; arrest (adult) (1 source)Respiratory failure; insufficiency; arrest (adult); Translations: [Hypertensive heart and chronic kidney disease with heart failure and with stage 5 chronic kidney disease, or end stage renal disease]Onset: 36-77-6901Ddvkrdg disorders (4 sources)Hypothyroidism; Translations: [Hypothyroidism, unspecified]Onset: 20-56-5530JfzxyekZsjktnhrufdz (1 source)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 involvement without evidence of necrosis; Translations: [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 involvement without evidence of necrosis]Onset: 93-41-0179Yzowahhwhprv (1 source)Acidosis, unspecified; Translations: [Acidosis, unspecified]Onset: 06-11-2022 Past or Other Problems Problem ClassificationProblemDateDocumented DateEpisodic/ChronicDeficiency and other anemia (4 sources)Anemia, unspecified; Translations: [Anemia, unspecified]Onset: 860298-48-8919GtijfqwkSvjabfpxxeimi and screening for infectious disease (2 sources)Other specified abnormal immunological findings in serum; Translations: [Other and unspecified nonspecific immunological findings]Onset: 23-46-9183UrgesonzWgznb aftercare (3 sources)alf (current) use of antibiotics; Translations: [Long-term (current) use of antibiotics]Onset: 593264-77-0460TtonsvjiOktyc aftercare (2 sources)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; Translations: [alf (current) use of insulin]Onset: 59-18-9015NgashmdnWvscf injuries and conditions due to external causes (7 sources)Other injury of unspecified body region, initial encounter; Translations: [Open wound(s) (multiple)of unspecified site(s), without mention of complication]Onset: 609458-58-6832HgondtcyZzzna nervous system disorders (1 source)Other acute postprocedural pain; Translations: [Other acute postprocedural pain]Onset: 38-42-5329UxzzkvdqWfasthau codes; unclassified (4 sources)Personal history of other specified conditions; Translations: [Personal history of other specified diseases]Onset: EpisodicResidual codes; unclassified (3 sources)Other specified postprocedural states; Translations: [Other postprocedural status]Onset: 493501-44-5571MmddebboNyttnolt codes; unclassified (1 source)Edema of lower extremityOnset: 964985-13-6922CfuocdmgVwde and subcutaneous tissue infections (18 sources)Abscess of right foot; Translations: [Cutaneous abscess of right foot]Onset: 577604-77-0177Lgftnhhk Results Test NameValueInterpretationReference RangeFacilityAbstracton 19-28-5168Yusnowvf [id number] Gopal Yates 1965 M Date Provider Department Center 01/19/2025 2020-KAYLI ZAYAS HVCTS [facility] Family History Problem Relation Age of Onset Alzheimer's disease Mother Hypertension Mother Breast cancer Mother Coronary artery disease Father Hypertension Father Diabetes Father Stroke Father COPD Father Hyperlipidemia Father Coronary artery disease Paternal Grandmother Family Status - Relation Status Age at Mother Father Daughter Alive Daughter Alive Paternal GrandmotherNOhioHealth Doctors Hospital36on Call placed to patient to reschedule appt on 01/09 to 01/23. Patient is having a CT 01/09 and needs to see transplant to go over CT first.[facility] HospitalDocumentationon [id number] Gopal Yates 1965 M Date Provider Department Center 01/01/2025 3300-DOUGLAS STEWART None Family History Problem Relation Age of Onset Alzheimer's disease Mother Hypertension Mother Breast cancer Mother Coronary artery disease Father Hypertension Father Diabetes Father Stroke Father COPD Father Hyperlipidemia Father Coronary artery disease Paternal Grandmother Family Status - Relation Status Age at Mother Father Daughter Alive Daughter Alive Paternal Grandmother Reason for Visit and Comments: Imaging follow up [Other][facility]36on [id number] spoke with Mr. Yates he is refusing to complete the MRI requested by transplant. I explained that we need it prior to surgery. He says he has tried in the past and he just can't go through the tube.[facility]36LVM with call back number with patient to discuss MRI previously discussed with transplant team.[facility] HospitalOffice Visiton 47-14-7749Qhdtoh-up [id number] Gopal Yates 1965 M Date Provider Department Center 12/25/2024 CASIMIRO ASNDRA Family History Problem Relation Age of Onset Alzheimer's disease Mother Hypertension Mother Breast cancer Mother Coronary artery disease Father Hypertension Father Diabetes Father Stroke Father COPD Father Hyperlipidemia Father Coronary artery disease Paternal Grandmother Family Status - Relation Status Age at Mother Father Daughter Alive Daughter Alive Paternal Grandmother Level of Service:93554 [place] OFFICE/OUTPATIENT ESTABLISHED MOD MDM 30 MINNormal [employer] [facility] [employer] [facility] Kzpwur46bq [id number] by: STEVE TOM on: 11/14/2024 03:40 PM Modules accepted: OrdersNormalUniversRegency Hospital [facility]36on 11-14-2024 36Spoke with patient and his he is scheduled for his US 11/30 @1:30 pm. [facility]36Call placed to [place] to get reports and images for US Arterial duplex and Carotid. Patient needs vein mapping [place] stated that they do not do those there. Patient is scheduled for PFT and ECHO 11/17. Called to inform patient that he needs to get scheduled here for US vein mapping no answer lmom to cb.[facility] HospitalAbstracton [id number] MilanGopal Rdz 1965 M Date Provider Department Center 11/08/2024 2020-KAYLI ZAYAS HVCTS MD [facility] Family History Problem Relation Age of Onset Alzheimer's disease Mother Hypertension Mother Breast cancer Mother Coronary artery disease Father Hypertension Father Diabetes Father Stroke Father COPD Father Hyperlipidemia Father Coronary artery disease Paternal Grandmother Family Status - Relation Status Age at Mother Father Daughter Alive Daughter Alive Paternal GrandmotherNOhioHealth Doctors Hospital36on Phone call from patients , states they talked to the thoracic surgeon in reference to Gopal having bypass, per they told the thoracic surgeon they wanted to wait until after the of the year, surgeon advised them to speak to his director of estate. advise that they are going on vacation [...] after the first of the year. Please advise.[place] [address]on [phone] wanted orders (labs,US,PFT) sent to [place] these were faxed over to [phone].[facility] HospitalTelephoneon 11-03-2024 [id number] Gopal Yates 1965 M Date Provider Department Center 11/03/2024 87078-XFWXBPSTEVE [facility] Family History Problem Relation Age of Onset Alzheimer's disease Mother Hypertension Mother Breast cancer Mother Coronary artery disease Father Hypertension Father Diabetes Father Stroke Father COPD Father Hyperlipidemia Father Coronary artery disease Paternal Grandmother Family Status - Relation Status Age at Mother Father Daughter Alive Daughter Alive Paternal Grandmother Reason for Visit and Comments: Other [Other]NormalAdena Health SystemOrders Onlyon 11-01-2024 Orders [id number] Gopal Yates 1965 M Date Provider Department Center 11/01/[address] Surgery None Family History Problem Relation Age of Onset Alzheimer's disease Mother Hypertension Mother Breast cancer Mother Coronary artery disease Father Hypertension Father Diabetes Father Stroke Father COPD Father Hyperlipidemia Father Coronary artery disease Paternal Grandmother Family Status - Relation Status Age at Mother Father Daughter Alive Daughter Alive Paternal GrandmotherNOhioHealth Doctors HospitalOrders [id number] Gopal Yates 1965 M Date Provider Department Center 11/01/2024 52840-PSUJTGSTEVE [facility]OMRES[facility] Family History Problem Relation Age of Onset Alzheimer's disease Mother Hypertension Mother Breast cancer Mother Coronary artery disease Father Hypertension Father Diabetes Father Stroke Father COPD Father Hyperlipidemia Father Coronary artery disease Paternal Grandmother Family Status - Relation Status Age at Mother Father Daughter Alive Daughter Alive Paternal GrandmotherNOhioHealth Doctors Hospital29on Addended by: STEVE TOM on: 11/01/2024 02:06 PM Modules accepted: OrdersNormalUniversity [facility]29Addended by: STEVE TOM on: 11/01/2024 01:41 PM Modules accepted: OrdersNormalUniversRegency Hospital Cleveland WestConsulton [id number] Gopal Yates 1965 M Date Provider Department Center 10/31/2024 JEROME RAMOS HVCTS MD Heart[facility]AS Family History Problem Relation Age of Onset Alzheimer's disease Mother Hypertension Mother Breast cancer Mother Coronary artery disease Father Hypertension Father Diabetes Father Stroke Father COPD Father Hyperlipidemia Father Coronary artery disease Paternal Grandmother Family Status - Relation Status Age at Mother Father Daughter Alive Daughter Alive Paternal Grandmother Level of Service:65790 [place] OFFICE/OP CONSLTJ NEW/EST PT MOD MDM 40 MINUTES Reason for Visit and Comments: Consult [484] - [facility]-17-5931VCCmxekmc Of Present Illness Gopal Yates is a [...] In May 2022 he was admitted to [facility] for osteomyelitis and had toe amputations. In [...] disease (CKD), Anxiety, CHF (congestive heart failure) ([facility]), Chronic fatigue syndrome, Chronic sinusitis, Coronary artery disease, Diabetic foot ulcers ([facility]), Diabetic neuropathy ([facility]), ED (erectile dysfunction), ESRD (end stage renal disease) ([facility]) (06/17/2022), GERD (gastroesophageal reflux disease), Heart valve disease, History of pleural effusion, History of tobacco use, Hyperlipidemia, Hypertension, Hypothyroidism, Myocardial infarction ([facility]), Osteomyelitis ([facility]), Panic attack, Pericardial effusion, Proteinuria, Pulmonary nodules, PVD (peripheral vascular disease), Secondary hyperparathyroidism of renal origin, Swelling of both lower extremities, Type 2 diabetes mellitus ([facility]), and Vitamin D deficiency. Surgical History He has a past surgical history that includes Cardiac catheterization (Right, 05/20/2021); Cardiac catheterization (02/07/2020); Toe amputation (05/07/2022); Peritoneal catheter insertion (05/28/2022); Wound debridement (Right, 09/04/2022); Abscess drainage (Left, 10/07/2022); and Colonoscopy (2017). Social History He reports that he quit [...] left ventricular ejection fracti (more content not included)...[facility] HospitalNURSNOTEon 61-41-9608TKRFEKMXQA educated pt on d/c instructions. This included: site care, limited physical [...] wheeled off of unit with all of belongings.[facility]36TBH lab called critical creatinine of 11.11. FYI. Result scanned into multimedia manager for your review.[facility]2910-05-2024 29Addended by: IRAJ PEREZ on: 10/05/2024 12:21 PM Modules accepted: OrdersNormalUniversity [facility]3610-05-2024 36Attempted to call patient to let him know his cardiac cath w/ Dr. Sosa had been scheduled. No answer / unable to LVM. Patient is scheduled for 10/19/24 () at 12:30 pm , with arrival at 11 am. Patient will need pre-procedure labs done Wednesday10/16/24 locally ([place]). [facility]36----- Message from Lily Sosa MD sent at 10/05/2024 2:36 AM EDT ----- The stress test showed ischemia. he needs cardiac cath. Please schedule for right heart cath and coronary angiogram. ----- Message ----- From: Interface, Radiology Results In Sent: 10/04/2024 2:38 PM EDT To: Casimiro Sosa MDNormalUniOhioHealth Nelsonville Health CenterResults Follow-Upon 01-40-8845Ooktekn Follow-[id number] Gopal Yates Kajal 1965 M Date Provider Department Center 10/05/2024 IRAJ GUADARRAMA TXP None Family History Problem Relation Age of Onset Alzheimer's disease Mother Hypertension Mother Breast cancer Mother Coronary artery disease Father Hypertension Father Diabetes Father Stroke Father COPD Father Hyperlipidemia Father Coronary artery disease Paternal Grandmother Family Status - Relation Status Age at Mother Father Daughter Alive Daughter Alive Paternal Grandmother Reason for Visit and Comments: Cardiac testing results [Other][facility]30on 92-70-630081Nbimphms stress test Patient information sheet explained, questions [...] and hemodynamically stable Full final report from director of estate to follow Anel Christiansen [facility] Cardiology Available 7a-3pm via GoMore [phone] Hospital36on 40-94-823903BW is cleared by ID for transplant, no appt needed.[facility] HospitalDocumentationon [id number] MilanGopal bates 1965 M Date Provider Department Center 09/06/2024 LELAND DAVALOS [facility] INF Antonietta Heal Family History Problem Relation Age of Onset Alzheimer's disease Mother Hypertension Mother Breast cancer Mother Coronary artery disease Father Hypertension Father Diabetes Father Stroke Father COPD Father Hyperlipidemia Father Coronary artery disease Paternal Grandmother Family Status - Relation Status Age at Mother Father Daughter Alive Daughter Alive Paternal GrandmotherNormalUnLima Memorial HospitalB-TYPE NATRIURETIC PEPTIDEon 03-02-6392Uxmwuahbrrp peptide B (Bld) [Mass/Vol]549 pg/mLHigh0-100 [facility] SystemComment on above:Performed By: #### [id number] #### [facility] ([facility]) [address] [place], [place] [address]WQIWXUDAU, DIRECTon 04-09-5117Ajlczsqvf [Mass/Vol]0.1 mg/dL Normal0-0.2UnLima Memorial HospitalComment on above:Performed By: #### [id number] #### [facility] ([facility]) [address] [place], [place] [address]P-GCXKQWNbp 08-30-2024 PEPTIDE (NG/ML) IN SER/PLAS14.5 ng/mL High0.5-3.3UnLima Memorial HospitalComment on above:Result Comment: INTERPRETIVE INFORMATION: Serum, C-Peptide Reference Interval applies to fasting specimens. To convert to nmol/L, multiply by 0.33 Performed By: [facility] [address] [place] [id number] [employer] Teacher: Cody Gurrola MD, PhD CLIA Number: [id number] By: #### [id number] #### [facility] ([facility]) [address] [place], [place] [address]ZLA WITH AUTO DIFFERENTIALon 54-62-5031Qdounxgpm (Bld) [#/Vol] 0.03 10*3/uLNormal0.00-0.20UnLima Memorial HospitalComment on above: Performed By: #### [id number] ####[facility] ([facility])[address] [place], [place] [address]Lozkfexnm/100 WBC (Bld)0.3 %Normal0.0-1.0UnLima Memorial HospitalComment on above:Performed By: #### [id number] ####[facility] ([facility])[address] [place], [place] [address]Kiatxmcugvm (Bld) [#/Vol]0.16 10*3/uL Normal0.00-0.50UnLima Memorial HospitalComment on above:Performed By: #### [id number] ####[facility] [place] [address] Eosinophils/100 WBC (Bld)1.6 %Normal0.0-6.0UnLima Memorial Hospital Comment on above:Performed By: #### [id number] ####[facility] ([facility])[address] [place], [place] [address]Rbytbudjzox distribution width (RBC) [Ratio]13.9 % Dcgmfg65.5-15.0UnLima Memorial HospitalComment on above:Performed By: #### [id number] ####[facility] ([facility])[address] [place] [address] ERYTHROCYTE MEAN CORPUSCULAR HEMOGLOBIN CONCENTRATION (G/DL) BY SYAXPVIBU10.8 g/mFXqzqsq50.0-35.0UnLima Memorial HospitalComment on above:Performed By: #### [id number] ####[facility] ([facility])[address] [place], [place] [address]Hjeuldiyft (Bld) [Volume fraction]27.5 %Low39.0-50.0UnLima Memorial HospitalComment on above:Performed By: #### [id number] ####[facility] ([facility])[address] [place], [place] [address]Qovjsenjbl (Bld) [Mass/Vol]9.3 g/dLLow 13.0-17.0UnLima Memorial HospitalComment on above:Performed By: #### [id number] ####[facility] ([facility])[address] [place], [place] [address]Vrplcvbj granulocytes (Bld) [#/Vol]0.04 10*3/uLNormal0.00-0.20UnLima Memorial HospitalComment on above:Performed By: #### [id number] ####[facility] [place], [place] [address]Odizqxqk granulocytes/100 WBC (Bld)0.4 %Normal0.0-1.0UnLima Memorial HospitalComment on above:Performed By: #### [id number] ####[facility] ([facility] [place] [address] Lymphocytes (Bld) [#/Vol]1.18 10*3/uLLow1.20-4.00UnLima Memorial HospitalComment on above:Performed By: #### [id number] ####[facility] ([facility])[address] [place], [place] [address]Tpiyeeahwtv/100 WBC (Bld)11.9 %Low 20.0-45.0UnLima Memorial HospitalComment on above:Performed By: #### [id number] ####[facility] ([facility])[address] [place], [place] [address]HGE (RBC) [Entitic mass]30.7 stUcbtfs86.0-33.0UnLima Memorial Hospital Comment on above:Performed By: #### [id number] ####[facility] ([facility])[address] [place], [place] [address]XHS (RBC) [Entitic vol]90.8 mDGmdhjq01.0-98.0 [facility] SystemComment on above:Performed By: #### [id number] ####[facility] ([facility])[address] [place], [place] [address]Wvxqcxgxv (Bld) [#/Vol]0.69 10*3/uLNormal0.10-1.00UnLima Memorial HospitalComment on above:Performed By: #### [id number] ####[facility] ([facility])[address] [place] [place], [place] [address]Tusurxddn/100 WBC (Bld)6.9 %Normal5.0-12.0UnLima Memorial HospitalComment on above:Performed By: #### [id number] ####[facility] ([facility])[address] [place], [place] [address]Ynaagzarfxo (Bld) [#/Vol] 7.85 10*3/uLHigh1.60-7.60UnLima Memorial HospitalComment on above: Performed By: #### [id number] ####[facility] ([facility])[address] [place] [place] [address]Exfffjweezc/100 WBC (Bld)78.9 %High40.0-72.0UnLima Memorial HospitalComment on above:Performed By: #### [id number] ####[facility] ([facility])[address] [place] [address]OJAI (PER 100 WBCS) BY AUTOMATED COUNT0.0 %Hfmozo9KhcilxukvqLima Memorial HospitalComment on above: Performed By: #### [id number] ####[facility] ([facility])[address] [place] [address]HRGRKVCSS (10*3/UL) IN BLOOD AUTOMATED VNHRI482 10*3/uLNormal 150-400UnLima Memorial HospitalComment on above:Performed By: #### [id number] ####[facility] ([facility])[address] [place] [address]EHP (Bld) [#/Vol]3.03 10*6/uLLow4.20-5.70UnLima Memorial HospitalComment on above:Performed By: #### [id number] ####[facility] ([facility])[address] [place] [address]UZS (Bld) [#/Vol]9.95 10*3/uLNormal4.00-10.60UnLima Memorial HospitalComment on above:Performed By: #### [id number] ####[facility] [place], [place] [address]PUWZMKBHVOZHT METABOLIC PANELon 13-50-2720Jcouzdv [Mass/Vol]3.3 g/dLLow3.5-5.7UnLima Memorial HospitalComment on above:Performed By: #### [id number] ####[facility] ([facility])[address] [place], [place] [address]UZZ [Catalytic activity/Vol]115 U/L Aces29-480FdwdesybqdLima Memorial HospitalComment on above:Performed By: #### [id number] ####[facility] ([facility])[address] [place], [place] [address]AGA [Catalytic activity/Vol]17 U/LNormal7-52UnLima Memorial Hospital Comment on above:Performed By: #### [id number] ####[facility] ([facility])[address] [place], [place] [address]Dgpzn gap [Moles/Vol]15 mmol/LNormal7-20UnLima Memorial HospitalComment on above:Performed By: #### [id number] ####[facility] ([facility])[address] [place] [place], [place] [address]XDY [Catalytic activity/Vol]13 U/KJylahw27-08UboryxflvbLima Memorial HospitalComment on above:Performed By: #### [id number] ####[facility] ([facility])[address] [place], [place] [address]Waatrsyhg [Mass/Vol]0.4 mg/dLNormal0.3-1.0UnLima Memorial HospitalComment on above:Performed By: #### [id number] ####[facility] ([facility])[address] [place] [place], [place] [address]Xduxmfw [Mass/Vol]8.6 mg/dLNormal 8.6-10.3UnLima Memorial HospitalComment on above:Performed By: #### [id number] ####[facility] ([facility])[address] [place], [place] [address]Zbxjayyu [Moles/Vol]99 mmol/ZEopdps48-662IiwmfkkjrcLima Memorial HospitalComment on above:Performed By: #### [id number] ####[facility] ([facility])[address] [place], [place] [address]LC5 [Moles/Vol]30 mmol/EYiwuuw62-73OxppsnylaqLima Memorial HospitalComment on above:Performed By: #### [id number] ####[facility] ([facility])[address] [place] [place], [place] [address]Flxwgbqssu [Mass/Vol]10.34 mg/dLHigh 0.70-1.30UnLima Memorial HospitalComment on above:Performed By: #### [id number] ####[facility] ([facility])[address] [place], [place] [address]YKRBAEDSIE FILTRATION RATE ML/MIN/1.73 SQ M.PREDICTED5.2 mL/min/1.73m*2Low>60.0UnLima Memorial HospitalComment on above:Result Comment: The [facility]???s estimated glomerular filtration rate (eGFR) will no [...] potential consequences that do not disproportionately affect anyone group of individuals. Performed By: #### [id number] ####[facility] ([facility])[address] [place], [place] [address]Awxeguc [Mass/Vol]148 mg/eJFzuk06-038FbtxrxwlbaLima Memorial HospitalComment on above:Performed By: #### [id number] ####[facility] ([facility])[address] [place], [place] [address]Rfwbvbbzj [Moles/Vol]3.8 mmol/LNormal 3.5-5.1UnLima Memorial HospitalComment on above:Performed By: #### [id number] ####[facility] ([facility])[address] [place], [place] [address]Fmqukoq [Mass/Vol]6.6 g/dLNormal6.0-8.3UnLima Memorial HospitalComment on above:Performed By: #### [id number] ####[facility] ([facility])[address] [place], [place] [address]Ebrbzb [Moles/Vol]140 mmol/LZdhfxt371-819UxvulrzithLima Memorial HospitalComment on above:Performed By: #### [id number] ####[facility] (BEDEVIKA)[address] [place], [place] [address]Xjxb nitrogen [Mass/Vol]40 mg/dLHigh 7-25UnLima Memorial HospitalComment on above:Performed By: #### [id number] ####[facility] (PRATIBHA)[address] [place], [place] [address]YQYC NITROGEN/CREATININE (MASS RATIO) IN SER/PLAS3.9NormalUniversRegency Hospital Cleveland WestComment on above:Performed By: #### [id number] ####[facility] ([facility])[address] [place], [place] [address]AO ABDOMEN PELVIS WO RENAL RECIPIENTon 37-16-7934WU ABDOMEN PELVIS WO RENAL RECIPIENTCT ABDOMEN AND PELVIS WITHOUT CONTRAST COMPARISON: None. [...] low as reasonably achievable. Electronically signed: Jeremy Marshall.NormalUnLima Memorial HospitalCT CHEST WO IV CONTRASTon 70-48-9047QO CHEST WO IV CONTRASTCT CHEST WO IV CONTRAST CLINICAL INFORMATION: Lung [...] further details. Electronically signed: Esteban Orozco MD. 8Invalid Interpretation CodeUnLima Memorial HospitalClinical Support on 54-22-4664Vagpibjh [id number] Gopal Yates 1965 M Date Provider Department [...] Reason for Visit and Comments: Kidney Eval [[id number]]NormalUnLima Memorial HospitalHEMOGLOBIN A1C on 45-70-3046Eaxezov [Mass/Vol]154 mg/dLNormalUniversRegency Hospital Cleveland WestComment on above:Performed By: #### [id number] #### [facility] (BEAKER) [address] [place], [place] [address]TlV0x (Bld) [Mass fraction]7.0 %High4.0-6.0UnAdams County Regional Medical Center CenterComment on above:Performed By: #### [id number] #### [facility] ([facility]) [address] [place], [place] [address]DJAMWLIDJ A ANTIBODY, IGMon 02-12-2523LFVHQHAGM A VIRUS IGM AB PRESENCE IN SER/PLASNon-ReactiveNormalNonreactiveAdena Health SystemComment on above:Performed By: #### [id number] #### [facility] ([facility]) [address] [place], [place] [address]ZAHEQYPFC B CORE ANTIBODY, IGMon 51-41-3624EONPSCPZK B VIRUS CORE IGM AB PRESENCE IN SER/PLAS BY IMMUNOASSYNegativeNormalNegativeAdena Health SystemComment on above:Result Comment: INTERPRETIVE INFORMATION: Hepatitis B Core Ab, IgM This assay should not be used for blood donor screening, associated re-entry protocols, or for screening Human Cells, Tissues and Cellular and Tissue-Based Products (HCT/P). Performed By: [facility] [address] [place] [address] [employer] Music Teacher: Cody Gurrola MD, PhD CLIA Number: [id number] By: #### [id number] ####[facility] ([facility] [place], [place] [address]QIEJFYDFA B CORE ANTIBODY, TOTALon 08-30-2024 HEPATITIS B VIRUS CORE AB (PRESENCE) IN SER/PLAS BY IMMNon-ReactiveNormal NonreactiveAdena Health SystemComment on above:Performed By: #### [id number] #### [facility] ([facility]) [address] [place], [place] [address]UJKYLTEHY B SURFACE ANTIBODY QUANTon 08-59-9106HNMIOTYDR B VIRUS SURFACE AB (MIU/ML) IN SERUM0.36 mIU/mLNormalAdena Health System Comment on above:Result Comment: INTERPRETATION: NONREACTIVE <8.00 mIU/mL INDETERMINATE 8.00 - 12.00 mIU/mL REACTIVE >12 mIU/mLPerformed By: #### [id number] #### [facility] ([facility]) [address] [place], [place] [address]KUELUCBXE B SURFACE ANTIGENon 16-54-5105TXLRMCDOF B VIRUS SURFACE AG PRESENCE IN SERUMNon-ReactiveNormPage HospitalactiveAdena Health SystemComment on above:Performed By: #### [id number] #### [facility] [address] [place] [address]IFMPZBLUV C ANTIBODYon 60-55-2479RXZAGNBIC C VIRUS AB PRESENCE IN SERUMNon-ReactiveNormalEncompass Health Rehabilitation Hospital Of East ValleyreactiveUnLima Memorial HospitalComment on above:Performed By: #### [id number] #### [facility] ([facility]) [address] [place] [address]QFT COMBO 4Gon 04-66-8612XZN COMBO 4GNegativeNormalNegative [facility] SystemComment on above:Performed By: #### [id number] ####[facility] ([facility] [facility], [place] [address]DDI ABC CLASS I TYPINGon 5A*-12NormalUniOhioHealth Nelsonville Health CenterComment on above:Performed By: #### [id number] ####[facility] TISSUE TYPING (HISTOTRAC)[address] [place] [address] *-23NormalUniOhioHealth Nelsonville Health Center Comment on above:Performed By: #### [id number] ####[facility] TISSUE TYPING (HISTOTRAC)[address] [place] [address] USAB*-18NormalUniversRegency Hospital Cleveland WestComment on above:Performed By: #### [id number] ####[facility] TISSUE TYPING (HISTOTRAC)[address] [place] [address] USAB*-244NormalUniversRegency Hospital Cleveland WestComment on above:Performed By: #### [id number] ####[facility] TISSUE TYPING (HISTOTRAC)[address] [place] [address] USABW*-14NormalUniversRegency Hospital Cleveland WestComment on above:Performed By: #### [id number] ####[facility] TISSUE TYPING (HISTOTRAC)[address] [place] [address] USABW*-26NoSelect Medical TriHealth Rehabilitation HospitalComment on above:Performed By: #### [id number] ####[facility] TISSUE TYPING (HISTOTRAC)[address] [place] [address] USAC*-15 [facility] Private HospitalComment on above:Performed By: #### [id number] ####[facility] TISSUE TYPING (HISTOTRAC)[address] [place] [address] [place] C*-27NormalUniOhioHealth Nelsonville Health CenterComment on above:Performed By: #### [id number] ####[facility] TISSUE TYPING (HISTOTRAC)[address] [place] [address] USAHLA ABC CLASS I TYPING TEST METHODClass I typing by PCR-SSOP Luminex [facility]an Private HospitalComment on above:Performed By: #### [id number] ####[facility] TISSUE TYPING (HISTOTRAC)[address] [place] [address] [place] HLA ABC TESTED [id number] Hospital Comment on above:Performed By: #### [id number] ####[facility] TISSUE TYPING (HISTOTRAC)[address] [place] [address] CLASS II TYPINGon 05-49-8332AEW0*-104:01NormalURiverview Health InstituteComment on above: Performed By: #### [id number] ####[facility] TISSUE TYPING (HISTOTRAC)[address] [place] [address] USADQA1*-105NormalURiverview Health InstituteComment on above:Performed By: #### [id number] ####[facility] TISSUE TYPING (HISTOTRAC)[address] [place] [address] USADQB1*-12NormalURiverview Health InstituteComment on above:Performed By: #### [id number] ####[facility] TISSUE TYPING (HISTOTRAC)[address] [place] [address] USADQB1*-27NoalUniOhioHealth Nelsonville Health CenterComment on above:Performed By: #### [id number] ####[facility] TISSUE TYPING (HISTOTRAC)[address] [place] [address] USADRB1*-117Noal [facility] SystemComment on above:Performed By: #### [id number] ####[facility] TISSUE TYPING (HISTOTRAC)[address] [place] [address] USADRB1*-2 12NormalUniOhioHealth Nelsonville Health CenterComment on above:Performed By: #### [id number] ####[facility] TISSUE TYPING (HISTOTRAC)[address] [place] [address] [place] DRB3*-152NoalUniOhioHealth Nelsonville Health CenterComment on above:Performed By: #### [id number] ####[facility] TISSUE TYPING (HISTOTRAC)[address] [place] [address] USADRB3*-252NormalUniOhioHealth Nelsonville Health CenterComment on above: Performed By: #### [id number] ####[facility] TISSUE TYPING (HISTOTRAC)[address] [place] [address] CLASS II TYPING TEST METHODClass II typing by PCR- SSOP LuminexNoBellevue HospitalComsturgis hospital on above:Performed By: #### [id number] ####[facility] TISSUE TYPING (HISTOTRAC)[address] [place] [address] TESTED [id number] of Toledo Medical CenterComment on above:Performed By: #### [id number] ####[facility] TISSUE TYPING (HISTOTRAC)[address] [place] [address] USALIPID PANELon 08-30-2024 CHOL/HDL4.6 mg/dLNoalUniOhioHealth Nelsonville Health CenterComment on above: Performed By: #### [id number] #### [facility] (BEAKER) [address] [place], [place] [address]Lskwcrociyl [Mass/Vol]124 mg/sIUgpbqh598-839EphntknhzlLima Memorial HospitalComment on above:Performed By: #### [id number] #### [facility] ([facility]) [address] [place], [place] [address]Awucmoxza [Mass/Vol]198 mg/dLHigh<150UnLima Memorial HospitalComment on above:Result Comment: TRIGLYCERIDE REFERENCE RANGE: 20 YEARS AND OLDER CARDIOVASCULAR RISK LESS THAN 150 mg/dL LOW RISK 150 TO 199 mg/dL BORDERLINE RISK 200 mg/dL AND GREATER HIGH RISKPerformed By: #### [id number] #### [facility] ([facility]) [address] [place], [place] [address]Ktutwfhft [Mass/Vol]57 mg/dLNormal0-160UnLima Memorial HospitalComment on above:Performed By: #### [id number] #### [facility] ([facility]) [address] [place] [address]Bftunwlbg [Mass/Vol]27 mg/tIPtutrw00-70PethsznhexLima Memorial HospitalComment on above:Performed By: #### [id number] #### [facility] ([facility]) [address] [place], [place] [address]KEM HDL CHOL. (LDL+VLDL)97NormalUniversRegency Hospital Cleveland WestComment on above:Performed By: #### [id number] #### [facility] ([facility]) [address] [place] [address]EVICT VLDL-C40 mg/dLNormal0-40UnLima Memorial HospitalComment on above:Performed By: #### [id number] #### [facility] ([facility]) [address] [place] [address]Mmgza [id number] Gopal Yates 1965 M Date Provider Department Center 08/30/2024 5052-[facility]PD LAB RESOURCE [facility] OPD MD Medical C Family History Problem Relation Age of Onset Alzheimer's disease Mother Hypertension Mother Breast cancer Mother Coronary artery disease Father Hypertension Father Diabetes Father Stroke Father COPD Father Hyperlipidemia Father Coronary artery disease Paternal Grandmother Family Status - Relation Status Age at Mother Father Daughter Alive Daughter Alive Paternal GrandmotherNormalUnLima Memorial HospitalPANEL REACTIVE ANTIBODYon 07-67-9344MWZL SPECIMENHold for add-ons.NormalUnLima Memorial HospitalComment on above:Result Comment: Auto resulted.Performed By: #### [id number] ####[facility] TISSUE TYPING (HISTOTRAC)[address] [place] [address] [place] PROTIME-INRon 08-68-9984WGF IN PPP BY COAGULATION ASSAY0.95Dvoelx8.90-1.10 [facility] SystemComment on above:Result Comment: ACCCP RECOMMENDED INR FOR WARFARIN THERAPY CONDITION INR PROPHYLAXIS OF VENOUS THROMBOSIS 2-3 (HIGH-RISK SURGERY) TREATMENT OF VENOUS THROMBOSIS 2-3 TREATMENT OF PULMONARY EMBOLISM 2-3 PREVENTION OF SYSTEMIC EMBOLISM: 2-3 ACUTE MYOCARDIAL INFARCTION TISSUE HEART VALVES VALVULAR HEART DISEASE ATRIAL FIBRILLATION RECURRENT SYSTEMIC EMBOLISM MECHANICAL HEART VALVE 2.5-3.5 FROM: ORAL ANTICOAGULANTS. MECHANISM OF ACTION, CLINICAL EFFECTIVENESS, AND OPTIMAL THERAPEUTIC RANGE. CHEST 1995;108:231S-246S.Performed By: #### [id number] #### [facility] (BEAKER) [address] [place], [place] [address]CXDXTTCXLOV TIME (PT) IN PPP BY COAGULATION ASSAY12.7 Seconds Kaazta35.3-14.8Adena Health SystemComment on above:Performed By: #### [id number] #### [facility] (BEAKER) [address] [place], [place] [address]WUL, SCREENINGon 30-65-6618NRQVYVKM SPECIFIC AG (NG/ML) IN SER/PLAS0.6 ng/mLNormal0.4-4Adena Health SystemComment on above: Performed By: #### [id number] #### [facility] (BEAKER) [address] [place], [place] [address]GUNFDH ANTIGEN CLASS Ion 36-82-9986ZR SCREEN COMMENTSPotential specificites added to the watch list.NormalUnLima Memorial Hospital Comment on above:Performed By: #### [id number] ####[facility] TISSUE TYPING (HISTOTRAC)[address] [place] [address] USACLASS I LOW RISK DOV:23NoSelect Medical TriHealth Rehabilitation HospitalComment on above:Performed By: #### [id number] ####[facility] TISSUE TYPING (HISTOTRAC)[address] [place] [address] USACLASS I TESTED [id number] of Toledo Medical CenterComment on above:Performed By: #### [id number] ####[facility] TISSUE TYPING (HISTOTRAC)[address] [place] [address] USASINGLE ANTIGEN CLASS 1 TEST METHODClass I Single AntigenNoalUniOhioHealth Nelsonville Health CenterComment on above: Performed By: #### [id number] ####[facility] TISSUE TYPING (HISTOTRAC)[address] [place] [address] USASINGLE ANTIGEN CLASS IIon 54-45-4099SX SCREEN COMMENTSNo Specificites FoundNormalUniOhioHealth Nelsonville Health CenterComment on above: Performed By: #### [id number] #### [facility] TISSUE TYPING (HISTOTRAC) [address] [place] [address] USACLASS II TESTED [id number] of Toledo Medical CenterComment on above:Performed By: #### [id number] #### [facility] TISSUE TYPING (HISTOTRAC) [address] [place] [address] QNVLRZF8LrudnaKbeesyzapfOhioHealth Nelsonville Health CenterComment on above:Performed By: #### [id number] #### [facility] TISSUE TYPING (HISTOTRAC) [address] [place] [address] USAPerformed By: #### [id number] ####[facility] TISSUE TYPING (HISTOTRAC)[address] [place] [address] USASIGNED BYSigned by Gopal Ortiz CHT(ACHI) MT(ASCP), Manager Oracle Database Transplant ImmunologyNormalUniOhioHealth Nelsonville Health CenterComment on above:Performed By: #### [id number] #### [facility] TISSUE TYPING (HISTOTRAC) [address] [facility] [address] USAResult Comment: Class I Antigen MicrobeadsPerformed By: #### [id number] ####[facility] TISSUE TYPING (HISTOTRAC)[address] [place] [address] USAPerformed By: #### [id number] ####[facility] TISSUE TYPING (HISTOTRAC)[address] [place] [address] USAPerformed By: #### [id number] ####[facility] TISSUE TYPING (HISTOTRAC)[address] [place] [address] USASINGLE ANTIGEN CLASS 2 TEST METHODClass II Single AntigenNoBellevue HospitalComment on above:Result Comment: Class II Antigen MicrobeadsPerformed By: #### [id number] #### [facility] TISSUE TYPING (HISTOTRAC) [address] [place] [address] USATESTOSTERONE, FREE AND TOTAL, AND SHBGon 32-94-7398SPW HORMONE BINDING GLOBULIN (NMOL/L) IN SER/PLAS54 nmol/SOcnasx26-32AygxsmgyluLima Memorial HospitalComment on above:Performed By: #### [id number] #### [facility] (BEAKER) [address] [place], [place] [address]PSCGUSJGODUP (NG/DL) IN SER/ZJTC916 ng/yUTllolm406-326RnjvpwajuqLima Memorial HospitalComment on above:Performed By: #### [id number] #### [facility] (BEAKER) [address] [place], [place] [address]LPJKTAYPNYTW FREE (NG/ML) IN SER/PLAS50.9 pg/pRNtdxct75.0-244.0 Adena Health SystemComment on above:Result Comment: The concentration of free testosterone is derived from a mathematical expression based on the constant for the binding of testosterone to albumin and/or sex hormone binding globulin. Test Performed by 2,10E+07 [facility] [place] [address] - Released 08/30/2024 18:39Performed By: #### [id number] #### [facility] (BEAKER) [address] [place], [place] [address]ZXQT AND SCREENon 47-31-6636PV SCREENNegativeNormalUniversRegency Hospital Cleveland WestComment on above:Performed By: #### [id number] #### [facility] BLOOD BANK ,ABO group Nom (Bld)ANormalUniversRegency Hospital Cleveland WestComsturgis hospital on above: Performed By: #### [id number] #### [facility] BLOOD BANK ,RH TYPE IN BLOODPositiveNormalUniversRegency Hospital Cleveland WestComsturgis hospital on above:Performed By: #### [id number] #### [facility] BLOOD BANK ,Office Visiton 90-90-5906Weymxz-up [id number] Gopal Yates 1965 M Date Provider Department [place] 06/21/2024 CASIMIRO SANDRA [facility] [facility] Family History Problem Relation Age of Onset Alzheimer's disease Mother Coronary artery disease Father Coronary artery disease Paternal Grandmother Family Status - Relation Status Age at Mother Father Paternal Grandmother Level of Service:[address] [place] OFFICE/OUTPATIENT ESTABLISHED LOW MDM 20 MINNormal [facility] SystemLab Reportson 25-77-5207Gsb Reports [id number]#1.00TIFCrystal Clinic Orthopedic CenterPhysician Referralon 63-03-7948Afylfmppl Referral [id number]#1.00TIFCrystal Clinic Orthopedic CenterVancomycin,Randomon 38-04-8546Qaauigfwxx,Random9.4 ug/mLNormal5.0-20.0 [facility] HospitalComment on above:Order Comment: Date of last dose?: 20220804 Time of last dose?: 1529Result Comment: Last dose: - PERFORMED BY: [id number] PATHOLOGIST EMERGENCY PHYSICIAN SESAR VAUGHN M.D.Performed By: #### CRP #### [facility] [address] [place] [address] USASuperficial Wound Cultureon 04-03-7729Vvveqoqwhfj Wound CultureLight Normal Skin Efren 2 Days PERFORMED BY: [place] 4106370 PATHOLOGIST EMERGENCY PHYSICIAN SESAR VAUGHN M.D.[facility] Center OhioComment on above: Performed By: #### CRP #### [facility] [address] [place] [address] USAECHOCARDIO M/2D COMPLETEon 53-71-7192LXVYORIRRG M/2D COMPLETEPatient: GOPAL YATES Exam Date: 07/09/2022 : 1965 Gender:M Ordering : [facility]A [facility]HANG [facility] Admission #: [id number] Family : Order #: [id number] CLICK HERE TO VIEW EXAM ECHOCARDIOGRAM REPORT [...] by: Casimiro Sosa M.D. on 07/09/2022 at 20:28Mart[facility] Ferry HospitalAlanine aminotransferase [Enzymatic activity/volume] in Serum or Plasma Ordered By: Caleb Farrar on 12-88-1899ZXO [Catalytic activity/Vol]17 U/L7-52 [facility] HospitalAlbumin [Mass/volume] in Serum or Plasma by Bromocresol green (BCG) dye binding methoOrdered By: Caleb Farrar on 90-99-3931Ygfmmwg BCG dye [Mass/Vol]2.2 g/dL3.5-5.7FWyandot Memorial HospitalAlkaline phosphatase [Enzymatic activity/volume] in Serum or PlasmaOrdered By: Caleb Farrar on 52-34-6003NMR [Catalytic activity/Vol]148 U/L34-104 [facility] HospitalAspartate aminotransferase [Enzymatic activity/volume] in Serum or PlasmaOrdered By: Caleb Farrar on 40-68-7502KUW [Catalytic activity/Vol]35 U/B93-68HfqbvhxtvNorwalk Memorial HospitalBasophils Auto (Bld) [#/Vol]Ordered By: Caleb Baconomamarisol on 23-12-4426Owavpcxmj (Bld) [#/Vol]0.0 10*3/uL0.0-0.2FWyandot Memorial HospitalBasophils/100 WBC Auto (Bld)Ordered By: Caleb Farrar on 09-00-2698Xzbarojuy/100 WBC (Bld)0.6 %. [facility] HospitalBilirubin.total [Mass/volume] in Serum or PlasmaOrdered By: Caleb Farrar on 17-64-9051Ipqsijmdp [Mass/Vol]0.5 mg/dL 0.3-1.0Norwalk Memorial HospitalC reactive protein [Mass/volume] in Serum or PlasmaOrdered By: Ashutosh Thomas on 15-62-8716ZEM [Mass/Vol]14.7 mg/dL 0.0-0.5FWyandot Memorial HospitalC-Reactive Proteinon 46-02-7190I- Reactive Nvzhrpg97.7 mg/dLHigh0.0-0.5FWyandot Memorial HospitalComment on above:Result Comment: PERFORMED BY: [address] [place] [address] PATHOLOGIST EMERGENCY PHYSICIAN SESAR VAUGHN M.D.Performed By: #### CRP #### [place] [id number] USACalcium [Mass/volume] in Serum or PlasmaOrdered By: Obcheyennedayojana Daromar on 55-00-0925Ylnrgud [Mass/Vol]8.1 mg/dL8.6-10.3FWyandot Memorial HospitalCarbon dioxide, total [Moles/volume] in Serum or Plasma Ordered By: Obda Daromar on 62-97-1846XV3 [Moles/Vol]18.0 mmol/L21.0-31.0 [facility] HospitalChloride [Moles/volume] in Serum or Plasma Ordered By: Obaydah Daromar on 02-67-4917Snfdwabl [Moles/Vol]105 mmol/L98-107 [facility] HospitalComplete Blood Count Auto Diffon 06-15-2022 Basophils (Bld) [#/Vol]0.0 10*3/uLNormal0.0-0.2FWyandot Memorial Hospital Comment on above:Result Comment: PERFORMED BY: [facility] [address] [place] [address] PATHOLOGIST EMERGENCY PHYSICIAN SESAR VAUGHN M.D.Performed By: #### GLULS #### Point of Care testing ,Basophils/100 WBC (Bld)0.6 %Normal.[facility]walk Memorial HospitalComment on above:Performed By: #### GLULS #### Point of Care testing ,Eosinophils (Bld) [#/Vol]0.1 10*3/uLNormal0.0-0.45[facility] HospitalComment on above:Performed By: #### GLULS #### Point of Care testing ,Eosinophils/100 WBC (Bld)2.0 %Normal.[facility] Regional Medical CenterComment on above:Performed By: #### GLULS #### Point of Care testing ,Erythrocyte distribution width (RBC) [Ratio]16.3 %High12.0-14.8[facility]walk Memorial HospitalComment on above:Performed By: #### GLULS #### Point of Care testing ,Hematocrit (Bld) [Volume fraction]21.3 %Low38.8-50.0[facility] Memorial HospitalComment on above:Performed By: #### GLULS #### Point of Care testing ,Hemoglobin (Bld) [Mass/Vol]7.1 g/dLLow13.0-17.0[facility] Memorial HospitalComment on above:Performed By: #### GLULS #### Point of Care testing ,Lymphocytes (Bld) [#/Vol]0.4 10*3/uLLow1.00-4.8[facility] Memorial HospitalComment on above:Performed By: #### GLULS #### Point of Care testing ,Lymphocytes/100 WBC (Bld)7.0 %Normal.[facility]walk Memorial HospitalComment on above:Performed By: #### GLULS #### Point of Care testing ,MCH (RBC) [Entitic mass]27.1 pgLow27.5-35.2FWyandot Memorial Hospital Comment on above:Performed By: #### GLULS #### Point of Care testing ,MCV (RBC) [Entitic vol]81.1 fLLow83.5-101[facility] Comment on above:Performed By: #### GLULS #### Point of Care testing ,Mean Corpuscular HGB Conc33.4 g/qGFvywix63.5-35.6FWyandot Memorial HospitalComment on above:Performed By: #### GLULS #### Point of Care testing ,Monocytes (Bld) [#/Vol]0.6 10*3/uLNormal0.0-0.8[facility]:Performed By: #### GLULS #### Point of Care testing ,Monocytes/100 WBC (Bld)9.2 %Normal.[facility]:Performed By: #### GLULS #### Point of Care testing ,Neutrophils (Bld) [#/Vol]5.0 10*3/uLNormal1.8-7.7[facility] HospitalComment on above:Performed By: #### GLULS #### Point of Care testing ,Neutrophils/100 WBC (Bld)81.2 %Normal.[facility]:Performed By: #### GLULS #### Point of Care testing ,NRBC%0.3 /100{WBC}Normal0-0.5[facility] HospitalComment on above: Performed By: #### GLULS #### Point of Care testing ,Platelet mean volume (Bld) [Entitic vol]9.0 fLNormal6.6-10.1FW[facility] HospitalComment on above:Performed By: #### GLULS #### Point of Care testing ,Platelets (Bld) [#/Vol]172 10*3/iTYbkmuy960-742GljuycfwdNorwalk Memorial HospitalComment on above:Performed By: #### GLULS #### Point of Care testing ,RBC (Bld) [#/Vol]2.63 10*6/uLLow3.90-5.60[facility] Comment on above:Performed By: #### GLULS #### Point of Care testing ,WBC (Bld) [#/Vol]6.2 10*3/uLNormal4.1-10.5FWyandot [facility] Hospital Comment on above:Performed By: #### GLULS #### Point of Care testing ,Comprehensive Metabolic Panelon 88-35-6572Ogkzrxn [Mass/Vol]2.2 g/dLLow3.5-5.7 [facility] HospitalComment on above:Performed By: #### GLULS #### Point of Care testing ,Albumin/Globulin [Mass ratio]0.6 {ratio}NormalNorwalk Memorial Hospital Comment on above:Performed By: #### GLULS #### Point of Care testing ,ALP [Catalytic activity/Vol]148 U/IZnoq59-340KhxagtpwdNorwalk Memorial Hospital Comment on above:Performed By: #### GLULS #### Point of Care testing ,ALT [Catalytic activity/Vol]17 U/LNormal7-52[facility] Comment on above:Performed By: #### GLULS #### Point of Care testing ,Anion gap [Moles/Vol]16.8 mmol/LHigh6.0-15.0[facility] Comment on above:Performed By: #### GLULS #### Point of Care testing ,AST [Catalytic activity/Vol]35 U/KTsflbq77-30VquznqbadNorwalk Memorial Hospital Comment on above:Performed By: #### GLULS #### Point of Care testing ,Bilirubin [Mass/Vol]0.5 mg/dLNormal0.3-1.0[facility] Comment on above:Performed By: #### GLULS #### Point of Care testing ,Calcium [Mass/Vol]8.1 mg/dLLow8.6-10.3FWyandot Memorial HospitalComment on above:Performed By: #### GLULS #### Point of Care testing ,Chloride [Moles/Vol]105 mmol/SAuwamh80-730KpuqlpoluNorwalk Memorial Hospital Comment on above:Performed By: #### GLULS #### Point of Care testing ,CO2 [Moles/Vol]18.0 mmol/LLow21.0-31.0[facility] HospitalComment on above:Performed By: #### GLULS #### Point of Care testing ,Creatinine [Mass/Vol]5.47 mg/dLHigh0.70-1.30[facility] Comment on above:Performed By: #### GLULS #### Point of Care testing ,Creatinine Clr Calc Qppebcxm28.29NoalNorwalk Memorial HospitalComment on above:Result Comment: PERFORMED BY: [facility] [place] [address] PATHOLOGIST EMERGENCY PHYSICIAN SESAR VAUGHN M.D.Performed By: #### GLULS #### Point of Care testing ,GFR/1.73 sq M.predicted MDRD (S/P/Bld) [Vol rate/Area]11.424 mL/min/{1.73_m2} NormalNorwalk Memorial HospitalComment on above:Performed By: #### GLULS #### Point of Care testing ,Globulin (S) [Mass/Vol]3.5 g/dLNormalNorwalk Memorial HospitalComment on above:Performed By: #### GLULS #### Point of Care testing ,Glucose [Mass/Vol]117 mg/uQRauj45-912ZmmstisbfNorwalk Memorial HospitalComment on above:Result Comment: Random Glucose Reference Range is dependent on time and content of last meal. Glucose of more than 200 mg/dL in a nonstressed, ambulatory subject supports the diagnosis of Diabetes Mellitus. ADA recommended reference rangePerformed By: #### GLULS #### Point of Care testing ,Potassium [Moles/Vol]3.8 mmol/LNormal3.5-5.1FW[facility]ot [facility] Comment on above:Performed By: #### GLULS #### Point of Care testing ,Protein [Mass/Vol]5.7 g/dLLow6.4-8.9[facility] HospitalComment on above:Performed By: #### GLULS #### Point of Care testing ,Sodium [Moles/Vol]136 mmol/SBuwbvq715-338YbqewslhnNorwalk Memorial Hospital Comment on above:Performed By: #### GLULS #### Point of Care testing ,Urea nitrogen [Mass/Vol]114 mg/dLHigh7-25[facility] Comment on above:Performed By: #### GLULS #### Point of Care testing ,Creatinine [Mass/volume] in Serum or PlasmaOrdered By: Caleb Baconomar on 49-63-9837Rimhltzicr [Mass/Vol]5.47 mg/dL0.70-1.30[facility] HospitalEosinophils Auto (Bld) [#/Vol]Ordered By: Obcheyennedayojana Baconomar on 06-15-2022 Eosinophils (Bld) [#/Vol]0.1 10*3/uL0.0-0.45[facility] Eosinophils/100 WBC Auto (Bld)Ordered By: Obcheyennedayojana Baconomar on 06-15-2022 Eosinophils/100 WBC (Bld)2.0 %.[facility] HospitalErythrocyte distribution width Auto (RBC) [Ratio]Ordered By: Caleb Farrar on 06-15-2022 Erythrocyte distribution width (RBC) [Ratio]16.3 %12.0-14.8[facility] HospitalGlobulin Calc (S) [Mass/Vol]Ordered By: Caleb Farrar on 65-14-0258Cksknoun (S) [Mass/Vol]3.5 g/dLNorwalk Memorial Hospital Glucose Glucometer (BldC) [Mass/Vol]Ordered By: Vikash Pope on 06-15-2022 Glucose [Mass/Vol]169 mg/dLNorwalk Memorial HospitalComment on above: Random Glucose Reference Range is dependent on time and content of last meal. Glucose of more than 200 mg/dL in a nonstressed, ambulatory subject supports the diagnosis of Diabetes Mellitus.Glucose Poct Glucometerson 99-51-6735Eddfafn [Mass/Vol]169 mg/dLNoMain Campus Medical CenterComment on above: Result Comment: Random Glucose Reference Range is dependent on time and content of last meal. Glucose of more than 200 mg/dL in a nonstressed, ambulatory subject supports the diagnosis of Diabetes Mellitus. PERFORMED BY: [place] [address] PATHOLOGIST EMERGENCY PHYSICIAN SESAR VAUGHN M.D.Performed By: #### CRP #### [place] [address] USAGlucose [Mass/Vol]133 mg/dLNoMain Campus Medical CenterComment on above:Result Comment: Random Glucose Reference Range is dependent on time and content of last meal. Glucose of more than 200 mg/dL in a nonstressed, ambulatory subject supports the diagnosis of Diabetes Mellitus. PERFORMED BY: [place] [address] PATHOLOGIST EMERGENCY PHYSICIAN SESAR VAUGHN M.D.Performed By: #### GLULS ####Point of Care testing,Glucose [Mass/volume] in Serum or PlasmaOrdered By: Caleb Farrar on 42-09-7822Hcforit [Mass/Vol]117 mg/lL90-453ZwdgfpacsNorwalk Memorial HospitalComment on above:ADA recommended reference rangeRandom Glucose Reference Range is dependent on time and content of last meal. Glucose of more than 200 mg/dL in a nonstressed, ambulatory subject supports the diagnosisof Diabetes Mellitus.Hematocrit Auto (Bld) [Volume fraction]Ordered By: Caleb Farrar on 06-67-4952Eojvrbtspu (Bld) [Volume fraction]21.3 %38.8-50.0[facility] HospitalHemoglobin [Mass/volume] in BloodOrdered By: Caleb Farrar on 99-07-3173Eivpfxgjvv (Bld) [Mass/Vol]7.1 g/dL13.0-17.0[facility] HospitalLaboratory - Chemistry and Chemistry - challengeOrdered By: Caleb Farrar on 06-15-2022 GFR/1.73 sq M.predicted MDRD (S/P/Bld) [Vol rate/Area]11.424 mL/min/{1.73_m2} [facility] HospitalLeukocytes [#/volume] corrected for nucleated erythrocytes in Blood by Automated counOrdered By: Caleb Farrar on 06-15-2022 WBC corrected for nucl RBC Auto (Bld) [#/Vol]6.2 10*3/uL4.1-10.5FWyandot Memorial HospitalLymphocytes Auto (Bld) [#/Vol]Ordered By: Caleb Baconomar on 02-09-2937Saumxslkkyo (Bld) [#/Vol]0.4 10*3/uL1.00-4.8[facility] HospitalLymphocytes/100 WBC Auto (Bld)Ordered By: Caleb Baconomar on 91-09-2219Zwgdoayepyp/100 WBC (Bld)7.0 %.[facility] Auto (RBC) [Entitic mass]Ordered By: Caleb Manzanor on 62-36-3024CQG (RBC) [Entitic mass]27.1 pg27.5-35.2FWyandot Memorial HospitalMCHC Auto (RBC) [Mass/Vol]Ordered By: Obcheyennedayojana Baconomar on 36-51-4258FZQC (RBC) [Mass/Vol]33.4 g/dL32.5-35.6FWyandot Memorial HospitalMCV Auto (RBC) [Entitic vol] Ordered By: Obcheyennedayojana Baconomar on 74-01-5241COJ (RBC) [Entitic vol]81.1 fL83.5-101 [facility] HospitalMonocytes Auto (Bld) [#/Vol]Ordered By: Obcheyennedayojana Daromar on 98-67-5450Djnsbvrhy (Bld) [#/Vol]0.6 10*3/uL0.0-0.8[facility] HospitalMonocytes/100 WBC Auto (Bld)Ordered By: Obcheyennedayojana Baconomar on 37-39-4514Oxpnvjtpz/100 WBC (Bld)9.2 %.[facility] Neutrophils Auto (Bld) [#/Vol]Ordered By: Obcheyennedayojana Baconomar on 06-15-2022 Neutrophils (Bld) [#/Vol]5.0 10*3/uL1.8-7.7FW[facility]ot [facility] Hospital Neutrophils/100 WBC Auto (Bld)Ordered By: Obcheyennedayojana Baconomar on 06-15-2022 Neutrophils/100 WBC (Bld)81.2 %.[facility] HospitalNo Panel InformationOrdered By: Obadelina Baconomar on 30-47-7360Elgkyovi Creatinine Clearance (Chem18.29[facility] HospitalNucleated erythrocytes [Presence] in Blood by Automated countOrdered By: Obcheyennedayojana Baconomar on 06-15-2022 Nucleated RBC Auto Ql (Bld)0.3 /100{WBC}0-0.5FW[facility] Platelet mean volume Auto (Bld) [Entitic vol]Ordered By: Obcheyennedayojana Baconomar on 12-47-0383Kpivesrk mean volume (Bld) [Entitic vol]9.0 fL6.6-10.1FWyandot Memorial HospitalPlatelets Auto (Bld) [#/Vol]Ordered By: Obcheyennedah Jordiomar on 04-61-2988Vseiifefa (Bld) [#/Vol]172 10*3/mD434-895NbwupzejmNorwalk Memorial HospitalPotassium [Moles/volume] in Serum or PlasmaOrdered By: Obaydah Daromar on 61-82-8169Aiirkhzqm [Moles/Vol]3.8 mmol/L3.5-5.1FWyandot Memorial HospitalProtein [Mass/volume] in Serum or PlasmaOrdered By: Obaydah Daromar on 12-15-7457Lvskgpa [Mass/Vol]5.7 g/dL6.4-8.9[facility] HospitalRBC Auto (Bld) [#/Vol]Ordered By: Obaydah Daromar on 70-86-7176YDN (d) [#/Vol]2.63 10*6/uL3.90-5.60[facility] Hospitalerum or plasma albumin/globulin mass ratioOrdered By: Obaydah Daromar on 06-15-2022 Albumin/Globulin [Mass ratio]0.6 {ratio}[facility] Hospitalerum or plasma anion gap determinationOrdered By: Obaydah Daromar on 65-94-1151Deawp gap [Moles/Vol]16.8 mmol/L6.0-15.0[facility] Hospitalodium [Moles/volume] in Serum or PlasmaOrdered By: Obaydah Daromar on 91-32-0143Rmhuda [Moles/Vol]136 mmol/J229-273EttqdsuuhNorwalk Memorial HospitalUrea nitrogen [Mass/volume] in Serum or PlasmaOrdered By: Obaydah Daromar on 34-83-1296Rwhs nitrogen [Mass/Vol]114 mg/dL7-25[facility] HospitalWBC Auto (Bld) [#/Vol]Ordered By: Obaydah Daromar on 18-84-0013FID (Bld) [#/Vol]6.2 10*3/uL 4.1-10.5FWyandot Memorial HospitalBasic Metabolic Panelon 09-23-9992Kmpee gap [Moles/Vol]15.6 mmol/LHigh6.0-15.0[facility] HospitalComment on above:Performed By: #### CRP #### [facility] [address] [place] [address] USACalcium [Mass/Vol]8.3 mg/dLLow8.6-10.3FWyandot Memorial HospitalComment on above:Performed By: #### CRP #### [facility] [address] [place] [address] USAChloride [Moles/Vol]107 mmol/HBjyvck75-916RvsyvnnuiNorwalk Memorial HospitalComment on above:Performed By: #### CRP #### [facility] [address] [place] [address] USACO2 [Moles/Vol]18.4 mmol/LLow21.0-31.0[facility] HospitalComment on above:Performed By: #### CRP #### [facility] [address] [place] [address] USACreatinine [Mass/Vol]5.56 mg/dLHigh0.70-1.30[facility] HospitalComment on above:Performed By: #### CRP #### [facility] [address] [place] [address] USACreatinine Clr Calc Nghenfvc13.00NormalNorwalk Memorial HospitalComment on above:Result Comment: PERFORMED BY: [place] [address] PATHOLOGIST EMERGENCY PHYSICIAN SESAR VAUGHN M.D.Performed By: #### CRP #### [facility] [address] [place] [address] USAGFR/1.73 sq M.predicted MDRD (S/P/Bld) [Vol rate/Area] 11.203 mL/min/{1.73_m2}NormalNorwalk Memorial HospitalComment on above: Performed By: #### CRP #### [facility] [address] [place] [address] USAGlucose [Mass/Vol]95 mg/iFEiuulr24-211FwcgfampcNorwalk Memorial HospitalComment on above:Result Comment: Random Glucose Reference Range is dependent on time and content of last meal. Glucose of more than 200 mg/dL in a nonstressed, ambulatory subject supports the diagnosis of Diabetes Mellitus. ADA recommended reference rangePerformed By: #### CRP #### [facility] [address] [place] [address] USAPotassium [Moles/Vol]4.0 mmol/LNormal3.5-5.1FWyandot Memorial HospitalComment on above:Performed By: #### CRP #### [facility] [address] [place] [address] USASodium [Moles/Vol]137 mmol/DNqfxdb882-657WkcbdkehcNorwalk Memorial HospitalComment on above:Performed By: #### CRP #### [facility] [address] [place] [address] USAUrea nitrogen [Mass/Vol]113 mg/dLHigh7-25[facility] HospitalComment on above:Performed By: #### CRP #### [facility] [address] [place] [address] USACT abdomen pelvis wo conon 19-78-2374NL abdomen pelvis wo [facility] [place] [address] [place] [address] CT Scan Report Signed Patient: Gopal Yates Jr MR#: [id number] : 1965 Acct:[id number] Age/Sex: 56 / M ADM Date: 06/11/22 Loc: Room: [address] [place] [address] Type: ADM IN Attending Dr: Caleb Farrar MD Copies to: Caleb Farrar MD Ordering Provider: Caleb Farrar MD Date of Service: 06/14/22 CT/CT abdomen pelvis wo con: Rule out hematoma, intraabdominal bleed ([id number]) CT/CT chest wo con: SOB CT CHEST, [...] Tana Perry M.D.06/14/2022 2:13 PM Dictation Location: [place] [address] Transcribed By: [facility] 06/14/22 1413 Dictated By: Tana Perry MD 06/14/22 1358 Signed By: 06/14/22 1413NoMain Campus Medical CenterComplete Blood Count Auto Diffon 48-75-7528Qzlpbvilq (Bld) [#/Vol]0.0 10*3/uLNormal0.0-0.2FWyandot Memorial HospitalComment on above:Result Comment: PERFORMED BY: [place] [address] PATHOLOGIST EMERGENCY PHYSICIAN SESAR VAUGHN M.D.Performed By: #### CRP #### [place] [address] USABasophils/100 WBC (Bld)0.6 %Normal.[facility] HospitalComment on above:Performed By: #### CRP #### [place] [address] USAEosinophils (Bld) [#/Vol]0.1 10*3/uLNormal0.0-0.45 [facility] HospitalComment on above:Performed By: #### CRP #### [place] [address] USAEosinophils/100 WBC (Bld)2.4 %Normal.[facility] HospitalComment on above:Performed By: #### CRP #### [place] [address] USAErythrocyte distribution width (RBC) [Ratio]16.5 %High 12.0-14.8[facility] HospitalComment on above:Performed By: #### CRP #### [facility] [address] [place] [address] USAHematocrit (Bld) [Volume fraction]21.5 %Low38.8-50.0 [facility] HospitalComment on above:Performed By: #### CRP #### [facility] [address] [place] [address] USAHemoglobin (Bld) [Mass/Vol]7.1 g/dLLow13.0-17.0[facility] HospitalComment on above:Performed By: #### CRP #### [facility] [address] [place] [address] USALymphocytes (Bld) [#/Vol]0.5 10*3/uLLow1.00-4.8[facility] HospitalComment on above:Performed By: #### CRP #### [place] [address] USALymphocytes/100 WBC (Bld)7.5 %Normal.[facility] HospitalComment on above:Performed By: #### CRP #### [place] [address] USAMCH (RBC) [Entitic mass]27.0 pgLow27.5-35.2FWyandot Memorial HospitalComment on above:Performed By: #### CRP #### [place] [address] USAMCV (RBC) [Entitic vol]81.5 fLLow83.5-101[facility] HospitalComment on above:Performed By: #### CRP #### [place] [address] USAMean Corpuscular HGB Conc33.1 g/gKGinvqz62.5-35.6FWyandot Memorial HospitalComment on above:Performed By: #### CRP #### [place] [address] USAMonocytes (Bld) [#/Vol]0.7 10*3/uLNormal0.0-0.8[facility] HospitalComment on above:Performed By: #### CRP #### [facility] [address] [place] [address] USAMonocytes/100 WBC (Bld)10.6 %Normal.[facility] HospitalComment on above:Performed By: #### CRP #### [facility] [address] [place] [address] USANeutrophils (Bld) [#/Vol]4.8 10*3/uLNormal1.8-7.7FWyandot Memorial HospitalComment on above:Performed By: #### CRP #### [facility] [address] [place] [address] USANeutrophils/100 WBC (Bld)78.9 %Normal.[facility] HospitalComment on above:Performed By: #### CRP #### [facility] [address] [place] [address] USANRBC%0.1 /100{WBC}Normal0-0.5FWyandot Memorial HospitalComment on above:Performed By: #### CRP #### [facility] [address] [place] [address] USAPlatelet mean volume (Bld) [Entitic vol]8.8 fLNormal 6.6-10.1FWyandot Memorial HospitalComsturgis hospital on above:Performed By: #### CRP #### [facility] [address] [place] [address] USAPlatelets (Bld) [#/Vol]167 10*3/wINrnomz271-139NdpbtrvezNorwalk Memorial HospitalComment on above:Performed By: #### CRP #### [facility] [address] [place] [address] USARBC (Bld) [#/Vol]2.63 10*6/uLLow3.90-5.60[facility] HospitalComment on above:Performed By: #### CRP #### [facility] [address] [place] [address] USAWBC (Bld) [#/Vol]6.1 10*3/uLNormal4.1-10.5FWyandot Memorial HospitalComment on above:Performed By: #### CRP #### [facility] [address] [place] [address] USAFecal occult blood detection by immunochemistryOrdered By: Caleb Farrar on 29-43-9261Lemoddkobd.gastrointestinal Ql (Stl)[facility] HospitalGlucose Poct Glucometerson 72-06-0962Fojudrg [Mass/Vol] 185 mg/dLKing's Daughters Medical Center OhioComment on above:Result Comment: Random Glucose Reference Range is dependent on time and content of last meal. Glucose of more than 200 mg/dL in a nonstressed, ambulatory subject supports the diagnosis of Diabetes Mellitus. PERFORMED BY: [place] [address] PATHOLOGIST EMERGENCY PHYSICIAN SESAR VAUGHN M.D.Performed By: #### GLULS #### Point of Care testing ,Glucose [Mass/Vol]180 mg/dLKing's Daughters Medical Center OhioComsturgis hospital on above:Result Comment: Random Glucose Reference Range is dependent on time and content of last meal. Glucose of more than 200 mg/dL in a nonstressed, ambulatory subject supports the diagnosis of Diabetes Mellitus. PERFORMED BY: [place] [address] PATHOLOGIST EMERGENCY PHYSICIAN SESAR VAUGHN M.D.Performed By: #### CRP #### [facility] [address] [place] [address] USAGlucose [Mass/Vol]167 mg/dLNoMain Campus Medical CenterComment on above:Result Comment: Random Glucose Reference Range is dependent on time and content of last meal. Glucose of more than 200 mg/dL in a nonstressed, ambulatory subject supports the diagnosis of Diabetes Mellitus. PERFORMED BY: [place] [address] PATHOLOGIST EMERGENCY PHYSICIAN SESAR VAUGHN M.D.Performed By: #### CRP #### [facility] [address] [place] [address] LXLZlnbdnd9Lik5: Cleaned MeterNoMain Campus Medical CenterComment on above:Result Comment: PERFORMED BY: [address] [address] PATHOLOGIST EMERGENCY PHYSICIAN SESAR VAUGHN M.D.Performed By: #### CRP #### [facility] [address] [place] [address] USAGlucose [Mass/Vol]112 mg/dLNormalNorwalk Memorial HospitalComment on above:Result Comment: Random Glucose Reference Range is dependent on time and content of last meal. Glucose of more than 200 mg/dL in a nonstressed, ambulatory subject supports the diagnosis of Diabetes Mellitus.Performed By: #### CRP #### [address] [address] USAHaptoglobinon 23-18-9183Ebrlaomkhsy942 mg/gGKjfa29-027 [facility] HospitalComment on above:Result Comment: PERFORMED BY: [address] [address] PATHOLOGIST EMERGENCY PHYSICIAN SESAR VAUGHN M.D.Performed By: #### CRP #### [address] [address] USAHaptoglobin [Mass/volume] in Serum or PlasmaOrdered By: Caleb Farrar on 12-92-9251Coartnhrsdm [Mass/Vol]332 mg/yR36-724HrgwacitxNorwalk Memorial HospitalLDH Lactate Dehydrogenaseon 85-89-2174QDR Lactate Btkioohloiola696 U/OXowaiv820-177Guwofelbj[address] [place], [place] [address]Comment on above:Result Comment: PERFORMED BY: [address] [address] PATHOLOGIST EMERGENCY PHYSICIAN SESAR VAUGHN M.D.Performed By: #### CRP #### [facility] [address] [place] [address] USALactate dehydrogenase [Enzymatic activity/volume] in Serum or Plasma by Lactate to pyOrdered By: Obadelina Baconomar on 47-89-0479MEK Lactate to pyruvate reaction [Catalytic activity/Vol]220 U/F093-486TyezeuiomNorwalk Memorial HospitalNo Panel InformationOrdered By: Caleb Farrar on 06-14-2022 Bedside Glucose CommentGlu2: cleaned [facility] Hospitaltool Occult Blood (Immuno)on 40-80-9067Gwmbo Occult Blood (Immuno)Occult Blood (Immuno) Negative for Occult Blood by Immunochemical Methodology Reference range = Negative PERFORMED BY: [place] [address] PATHOLOGIST EMERGENCY PHYSICIAN SESAR VAUGHN M.D.[facility] OhioComment on above: Performed By: #### CRP #### [facility] [address] [place] [address] USAComplete Blood Count Auto Diffon 14-11-2055Klwstvufp (Bld) [#/Vol]0.0 10*3/uLNormal0.0-0.2FWyandot Memorial HospitalComment on above:Result Comment: PERFORMED BY: [place] [address] PATHOLOGIST EMERGENCY PHYSICIAN SESAR VAUGHN M.D.Performed By: #### RENAL, CBC #### [facility] [address] [place] [address] USABasophils/100 WBC (Bld)0.6 %Normal.[facility] HospitalComment on above:Performed By: #### RENAL, CBC #### [facility] [address] [place] [address] USAEosinophils (Bld) [#/Vol]0.1 10*3/uLNormal0.0-0.45 [facility] HospitalComment on above:Performed By: #### RENAL, CBC #### [facility] [address] [place] [address] USAEosinophils/100 WBC (Bld)2.1 %Normal.[facility] HospitalComment on above:Performed By: #### RENAL, CBC #### [facility] [address] [place] [address] USAErythrocyte distribution width (RBC) [Ratio]16.9 %High 12.0-14.8[facility] Memorial HospitalComment on above:Performed By: #### RENAL, CBC #### [facility] [address] [place] [address] USAHematocrit (Bld) [Volume fraction]20.6 %Low38.8-50.0 [facility] HospitalComment on above:Performed By: #### RENAL, CBC #### [facility] [address] [place] [address] USAHemoglobin (Bld) [Mass/Vol]6.8 g/dLLow13.0-17.0[facility] HospitalComment on above:Performed By: #### RENAL, CBC #### [place] [address] USALymphocytes (Bld) [#/Vol]0.5 10*3/uLLow1.00-4.8[facility] HospitalComment on above:Performed By: #### RENAL, CBC #### [place] [address] USALymphocytes/100 WBC (Bld)6.8 %Normal.[facility] HospitalComment on above:Performed By: #### RENAL, CBC #### [place] [id number] USAMCH (RBC) [Entitic mass]27.1 pgLow27.5-35.2FWyandot Memorial HospitalComment on above:Performed By: #### RENAL, CBC #### [place] [address] USAMCV (RBC) [Entitic vol]81.9 fLLow83.5-101Nor[facility] HospitalComment on above:Performed By: #### RENAL, CBC #### [place] [id number] USAMean Corpuscular HGB Conc33.1 g/yEKnwezv49.5-35.6FWyandot Memorial HospitalComment on above:Performed By: #### RENAL, CBC #### [facility] [address] [place] [address] USAMonocytes (Bld) [#/Vol]0.7 10*3/uLNormal0.0-0.8[facility] HospitalComsturgis hospital on above:Performed By: #### RENAL, CBC #### [facility] [address] [place] [address] USAMonocytes/100 WBC (Bld)10.4 %Normal.[facility] HospitalComment on above:Performed By: #### RENAL, CBC #### [facility] [address] [place] [address] USANeutrophils (Bld) [#/Vol]5.5 10*3/uLNormal1.8-7.7FWyandot Memorial HospitalComment on above:Performed By: #### RENAL, CBC #### [facility] [address] [place] [address] USANeutrophils/100 WBC (Bld)80.1 %Normal.[facility] HospitalComment on above:Performed By: #### RENAL, CBC #### [facility] [address] [place] [address] USANRBC%0.1 /100{WBC}Normal0-0.5FWyandot Memorial HospitalComsturgis hospital on above:Performed By: #### RENAL, CBC #### [facility] [address] [place] [address] USAPlatelet mean volume (Bld) [Entitic vol]8.9 fLNormal 6.6-10.1FWyandot Memorial HospitalComment on above:Performed By: #### RENAL, CBC #### [facility] [address] [place] [address] USAPlatelets (Bld) [#/Vol]173 10*3/hDUqfrbj983-531IsvvcxoarNorwalk Memorial HospitalComsturgis hospital on above:Performed By: #### RENAL, CBC #### [facility] [address] [place] [address] USARBC (Bld) [#/Vol]2.52 10*6/uLLow3.90-5.60[facility] HospitalComment on above:Performed By: #### RENAL, CBC #### [facility] [address] [place] [address] USAWBC (Bld) [#/Vol]6.9 10*3/uLNormal4.1-10.5FWyandot Memorial HospitalComment on above:Performed By: #### RENAL, CBC #### [place] [address] USAComprehensive Metabolic Panelon 76-22-3449Kslxhqa [Mass/Vol]2.3 g/dLLow3.5-5.7FWyandot Memorial HospitalComment on above: Performed By: #### RENAL, CBC #### [place] [address] USAAlbumin/Globulin [Mass ratio]0.7 {ratio}NormalNorwalk Memorial HospitalComment on above:Performed By: #### RENAL, CBC #### [place] [address] USAALP [Catalytic activity/Vol]160 U/CMwbt57-668PokcedbzcNorwalk Memorial HospitalComment on above:Performed By: #### RENAL, CBC #### [place] [address] USAALT [Catalytic activity/Vol]12 U/LNormal7-52[facility] Memorial HospitalComment on above:Performed By: #### RENAL, CBC #### [place] [address] USAAnion gap [Moles/Vol]15.6 mmol/LHigh6.0-15.0[facility] HospitalComment on above:Performed By: #### RENAL, CBC #### [facility] [address] [place] [address] USAAST [Catalytic activity/Vol]22 U/ZHftjic15-00DnfxdmaruNorwalk Memorial HospitalComment on above:Performed By: #### RENAL, CBC #### [place] [address] USABilirubin [Mass/Vol]0.7 mg/dLNormal0.3-1.0[facility] Memorial HospitalComment on above:Performed By: #### RENAL, CBC #### [facility] [address] [place] [address] USACalcium [Mass/Vol]8.1 mg/dLLow8.6-10.3FWyandot Memorial HospitalComment on above:Performed By: #### RENAL, CBC #### [facility] [address] [place] [address] USAChloride [Moles/Vol]107 mmol/LFrhaoj93-348KboddhtszNorwalk Memorial HospitalComment on above:Performed By: #### RENAL, CBC #### [facility] [address] [place] [address] USACO2 [Moles/Vol]18.5 mmol/LLow21.0-31.0Norwalk Memorial HospitalComment on above:Performed By: #### RENAL, CBC #### [facility] [address] [place] [address] USACreatinine [Mass/Vol]5.58 mg/dLHigh0.70-1.30Norwalk Memorial HospitalComment on above:Performed By: #### RENAL, CBC #### [facility] [address] [place] [address] USACreatinine Clr Calc Xxjkxfnj01.93NoMain Campus Medical CenterComment on above:Performed By: #### RENAL, CBC #### [facility] [address] [place] [address] USAGFR/1.73 sq M.predicted MDRD (S/P/Bld) [Vol rate/Area] 11.155 mL/min/{1.73_m2}NormalNorwalk Memorial HospitalComment on above: Performed By: #### RENAL, CBC #### [facility] [address] [place] [address] USAGlobulin (S) [Mass/Vol]3.5 g/dLNoMain Campus Medical CenterComment on above:Performed By: #### RENAL, CBC #### [facility] [address] [place] [address] USAGlucose [Mass/Vol]97 mg/oRAaeaaj61-291SixaujhucNorwalk Memorial HospitalComment on above:Result Comment: Random Glucose Reference Range is dependent on time and content of last meal. Glucose of more than 200 mg/dL in a nonstressed, ambulatory subject supports the diagnosis of Diabetes Mellitus. ADA recommended reference rangePerformed By: #### RENAL, CBC #### [facility] [address] [place] [address] USAPotassium [Moles/Vol]4.1 mmol/LNormal3.5-5.1FWyandot Memorial HospitalComment on above:Performed By: #### RENAL, CBC #### [facility] [address] [place] [address] USAProtein [Mass/Vol]5.8 g/dLLow6.4-8.9Norwalk Memorial HospitalComment on above:Performed By: #### RENAL, CBC #### [facility] [address] [place] [address] USASodium [Moles/Vol]137 mmol/NUdvttp096-213SodkhoikeNorwalk Memorial HospitalComment on above:Performed By: #### RENAL, CBC #### [facility] [address] [place] [address] USAUrea nitrogen [Mass/Vol]114 mg/dLHigh7-25Norwalk Memorial HospitalComment on above:Performed By: #### RENAL, CBC #### [facility] [address] [place] [address] USAFerritinon 24-70-3290Pkhksgtj [Mass/Vol]731.0 ng/mLHigh 23.9-336.2FWyandot Memorial HospitalComment on above:Performed By: #### RENAL, CBC #### [facility] [address] [place] [address] USAFerritin [Mass/volume] in Serum or PlasmaOrdered By: Cristobal Butts on 69-44-6838Dqvhguub [Mass/Vol]731.0 ng/mL23.9-336.2FWyandot Memorial HospitalFolate [Mass/volume] in Serum or PlasmaOrdered By: Cristobal Butts on 70-51-4368Mfftrc [Mass/Vol]14.5 ng/mL>5.9[facility] Comment on above:Folate reference range: >5.9 ng/mlThe WHO technical consultation on folate and vitamin o84abiaaxhmrcfv has determined that folate concentrations lessthan 4 ng/ml are considered deficient.Glucose Poct Glucometerson 50-46-5240Mnzqldl0Hqe6: Cleaned MeterNoMain Campus Medical CenterComment on above:Result Comment: PERFORMED BY: [place] [address] PATHOLOGIST EMERGENCY PHYSICIAN SESAR VAUGHN M.D.Performed By: #### CBCNO, BMP #### [facility] [address] [place] [address] USAGlucose [Mass/Vol]150 mg/dLKing's Daughters Medical Center OhioComment on above:Result Comment: Random Glucose Reference Range is dependent on time and content of last meal. Glucose of more than 200 mg/dL in a nonstressed, ambulatory subject supports the diagnosis of Diabetes Mellitus.Performed By: #### CBCNO, BMP #### [facility] [address] [place] [address] USAGlucose [Mass/Vol]139 mg/dLKing's Daughters Medical Center OhioComment on above:Result Comment: Random Glucose Reference Range is dependent on time and content of last meal. Glucose of more than 200 mg/dL in a nonstressed, ambulatory subject supports the diagnosis of Diabetes Mellitus. PERFORMED BY: [address] [address] PATHOLOGIST EMERGENCY PHYSICIAN SESAR VAUGHN M.D.Performed By: #### RENAL, CBC #### [facility] [address] [place] [address] USAGlucose [Mass/Vol]198 mg/dLKing's Daughters Medical Center OhioComment on above:Result Comment: Random Glucose Reference Range is dependent on time and content of last meal. Glucose of more than 200 mg/dL in a nonstressed, ambulatory subject supports the diagnosis of Diabetes Mellitus. PERFORMED BY: [place] [id number] PATHOLOGIST EMERGENCY PHYSICIAN SESAR VAUGHN M.D.Performed By: #### GLULS ####Point of Care testing,Dtzpgta5Ucu9: Cleaned MeterNoMain Campus Medical CenterComment on above:Result Comment: PERFORMED BY: [address] [address] PATHOLOGIST EMERGENCY PHYSICIAN SESAR VAUGHN M.D.Performed By: #### GLULS #### Point of Care testing ,Glucose [Mass/Vol]112 mg/dLKing's Daughters Medical Center OhioComment on above:Result Comment: Random Glucose Reference Range is dependent on time and content of last meal. Glucose of more than 200 mg/dL in a nonstressed, ambulatory subject supports the diagnosis of Diabetes Mellitus.Performed By: #### GLULS #### Point of Care testing ,Iron [Mass/volume] in Serum or PlasmaOrdered By: Cristobal Butts on 39-82-4989Matg [Mass/Vol]12 ug/vP36-612NrxqimxalNorwalk Memorial HospitalIron and TIBC Profile on 06-13-2022% Iron Saturation9.6 %Ikh13-63EnchbwbivNorwalk Memorial Hospital Comment on above:Performed By: #### RENAL, CBC #### [facility] [address] [place] [address] USAIron [Mass/Vol]12 ug/fHZus92-460QhrpbrwmwNorwalk Memorial HospitalComment on above:Performed By: #### RENAL, CBC #### [facility] [address] [place] [address] USATotal Iron Binding Mbeltckj499 ug/oNVmu106-311ItqhmnipvNorwalk Memorial HospitalComment on above:Performed By: #### RENAL, CBC #### [facility] [address] [place] [address] USATransferrin [Mass/Vol]89 mg/kWQsk667-557EdijlwgptNorwalk Memorial HospitalComment on above:Performed By: #### RENAL, CBC #### [facility] [address] [place] [address] USAIron binding capacity [Mass/volume] in Serum or Plasma Ordered By: Cristobal Butts on 28-93-8344Neua binding capacity [Mass/Vol]125 ug/dL 255-450Norwalk Memorial HospitalIron saturation [Mass Fraction] in Serum or PlasmaOrdered By: Cristobal Butts on 87-14-7867Scgj saturation [Mass fraction] 9.6 %20-50Norwalk Memorial HospitalTransferrin [Mass/volume] in Serum or PlasmaOrdered By: Ceciliomario Josafathelenimelda on 54-94-8548Dtdlhlgjtne [Mass/Vol]89 mg/dL 203-362Norwalk Memorial HospitalVancomycin [Mass/volume] in Serum or PlasmaOrdered By: Livia Lu on 01-41-9017Ynhgqzzkue [Mass/Vol]9.9 ug/mL 5.0-20.0Norwalk Memorial HospitalComment on above:Last dose: - Vancomycin,Randomon 23-56-3815Zezkbghbqg,Random9.9 ug/mLNormal5.0-20.0Norwalk Memorial HospitalComment on above:Order Comment: Date of last dose?: [id number] Time of last dose?: ult Comment: Last dose: - PERFORMED BY: [facility] [address] [facility] [place] [address] PATHOLOGIST EMERGENCY PHYSICIAN SESAR VAUGHN M.D.Performed By: #### VANCR ####[facility] [address] [place] [address] USAVit. B12/Folate Profileon 77-31-8523Frpktwjmj (Vitamin B12) [Mass/Vol]353 pg/lIPzurfo614-857RcvecaefdNorwalk Memorial Hospital Comment on above:Performed By: #### RENAL, CBC #### [facility] [address] [place] [id number] MUBVotekp97.5 ng/mLNormal>5.9Norwalk Memorial HospitalComment on above:Result Comment: Folate reference range: >5.9 ng/ml The WHO technical consultation on folate and vitamin b12 deficiencies has determined that folate concentrations less than 4 ng/ml are considered deficient. PERFORMED BY: [facility] [address] [facility] [address] PATHOLOGIST EMERGENCY PHYSICIAN SESAR VAUGHN M.D.Performed By: #### RENAL, CBC #### [facility] [address] [place] [address] USAVitamin B12 ser/plasOrdered By: Cristobal Butts on 06-13-2022 Cobalamin (Vitamin B12) [Mass/Vol]353 pg/kA117-226NygsmoxojNorwalk Memorial HospitalC-Reactive Proteinon 45-28-4608K-Reactive Wvxhvfr68.3 mg/dLHigh0.0-0.5 Norwalk Memorial HospitalComment on above:Order Comment: LINEResult Comment: PERFORMED BY: [facility] [address] [place] [address] PATHOLOGIST EMERGENCY PHYSICIAN SESAR VAUGHN M.D.Performed By: #### GLULS #### Point of Care testing ,Complete Blood Count Auto Diffon 67-66-9113Siwajeetv (Bld) [#/Vol]0.1 10*3/uL Normal0.0-0.2FWyandot Memorial HospitalComment on above:Order Comment: LINEPerformed By: #### CMP, ESR, MG, CBC ####[facility] [place] [id number] USABasophils/100 WBC (Bld)0.9 %Normal.Norwalk Memorial HospitalComment on above:Order Comment: LINEPerformed By: #### CMP, ESR, MG, CBC ####[place] [address] [place] [id number] USAEosinophils (Bld) [#/Vol]0.2 10*3/uLNormal0.0-0.45Norwalk Memorial HospitalComment on above:Order Comment: LINEPerformed By: #### CMP, ESR, MG, CBC ####[place] [id number] USAEosinophils/100 WBC (Bld)1.8 %Normal.Norwalk Memorial HospitalComment on above:Order Comment: LINEPerformed By: #### CMP, ESR, MG, CBC ####[place] [address] [place] [id number] USAErythrocyte distribution width (RBC) [Ratio]16.6 %High12.0-14.8Norwalk Memorial HospitalComment on above:Order Comment: LINEPerformed By: #### CMP, ESR, MG, CBC ####[address] Hematocrit (Bld) [Volume fraction]22.5 %Low38.8-50.0Norwalk Memorial HospitalComment on above:Order Comment: LINEPerformed By: #### CMP, ESR, MG, CBC ####[address] Hemoglobin (Bld) [Mass/Vol]7.6 g/dLLow13.0-17.0[facility] Comment on above:Order Comment: LINEPerformed By: #### CMP, ESR, MG, CBC ####[address] Lymphocytes (Bld) [#/Vol]0.4 10*3/uLLow1.00-4.8[facility] Comment on above:Order Comment: LINEPerformed By: #### CMP, ESR, MG, CBC ####[address] Lymphocytes/100 WBC (Bld)4.3 %Normal.Norwalk Memorial HospitalComment on above:Order Comment: LINEPerformed By: #### CMP, ESR, MG, CBC ####[address]H (RBC) [Entitic mass]27.2 pgLow27.5-35.2FWyandot Memorial HospitalComment on above:Order Comment: LINEPerformed By: #### CMP, ESR, MG, CBC ####[address]V (RBC) [Entitic vol]80.9 fLLow 83.5-101Norwalk Memorial HospitalComment on above:Order Comment: LINE Performed By: #### CMP, ESR, MG, CBC ####[address]Mean Corpuscular HGB Conc33.7 g/dLNormal 32.5-35.6FWyandot Memorial HospitalComment on above:Order Comment: LINE Performed By: #### CMP, ESR, MG, CBC ####[place] [address] USAMonocytes (Bld) [#/Vol]0.7 10*3/uLNormal 0.0-0.8Norwalk Memorial HospitalComment on above:Order Comment: LINE Performed By: #### CMP, ESR, MG, CBC ####[place] [id number] USAMonocytes/100 WBC (Bld)8.4 %Normal.Norwalk Memorial HospitalComment on above:Order Comment: LINEPerformed By: #### CMP, ESR, MG, CBC ####[place] [id number] USANeutrophils (Bld) [#/Vol]7.5 10*3/uLNormal1.8-7.7FWyandot Memorial HospitalComment on above:Order Comment: LINEPerformed By: #### CMP, ESR, MG, CBC ####[place] [id number] USANeutrophils/100 WBC (Bld)84.6 %Normal.[facility] Comment on above:Order Comment: LINEPerformed By: #### CMP, ESR, MG, CBC ####[place] [address] USANRBC% 0.0 /100{WBC}Normal0-0.5FWyandot Memorial HospitalComment on above:Order Comment: LINEPerformed By: #### CMP, ESR, MG, CBC ####[place] [id number] USAPlatelet mean volume (Bld) [Entitic vol]9.0 fLNormal6.6-10.1FWyandot Memorial HospitalComment on above:Order Comment: LINEPerformed By: #### CMP, ESR, MG, CBC ####[address] [place] [address] USAPlatelets (Bld) [#/Vol]190 10*3/uL Significant change fksw103-513IigahbtmnNorwalk Memorial HospitalComment on above: Order Comment: LINEPerformed By: #### CMP, ESR, MG, CBC ####[address] [address] USARBC (Bld) [#/Vol]2.78 10*6/uL Low3.90-5.60Norwalk Memorial HospitalComsturgis hospital on above:Order Comment: LINEPerformed By: #### CMP, ESR, MG, CBC ####[address] [address] USAWBC (Bld) [#/Vol]8.9 10*3/uLNormal4.1-10.5 Nor[facility] Memorial HospitalComsturgis hospital on above:Order Comment: LINEPerformed By: #### CMP, ESR, MG, CBC ####[address] [address] USAComprehensive Metabolic Panelon 17-21-1724Moapphj [Mass/Vol]2.5 g/dLLow3.5-5.7FWyandot Memorial HospitalComsturgis hospital on above: Order Comment: LINEPerformed By: #### CMP, ESR, MG, CBC ####[address] [address] USAAlbumin/Globulin [Mass ratio] 0.7 {ratio}NormalNorwalk Memorial HospitalComsturgis hospital on above:Order Comment: LINEPerformed By: #### CMP, ESR, MG, CBC ####[address] [address] USAALP [Catalytic activity/Vol]173 U/L Osut94-698QkalliacrNorwalk Memorial HospitalComment on above:Order Comment: LINE Performed By: #### CMP, ESR, MG, CBC ####[address] [address] USAALT [Catalytic activity/Vol]13 U/LNormal7-52 Nor[facility] Memorial HospitalComment on above:Order Comment: LINEPerformed By: #### CMP, ESR, MG, CBC ####[address] [address] USAAnion gap [Moles/Vol]16.6 mmol/LHigh6.0-15.0 Nor[facility] Memorial HospitalComment on above:Order Comment: LINEPerformed By: #### CMP, ESR, MG, CBC ####[address] [address] USAAST [Catalytic activity/Vol]24 U/JMglrny92-21 [facility] Memorial HospitalComment on above:Order Comment: LINEPerformed By: #### CMP, ESR, MG, CBC ####[address] [address] USABilirubin [Mass/Vol]0.8 mg/dLNormal0.3-1.0Norwalk Memorial HospitalComment on above:Order Comment: LINEPerformed By: #### CMP, ESR, MG, CBC ####[address] [address] USACalcium [Mass/Vol]8.0 mg/dLLow8.6-10.3FWyandot Memorial HospitalComment on above:Order Comment: LINEPerformed By: #### CMP, ESR, MG, CBC ####[address] [address] [place] Chloride [Moles/Vol]105 mmol/YMorarb06-334QhnkdklhxNorwalk Memorial Hospital Comment on above:Order Comment: LINEPerformed By: #### CMP, ESR, MG, CBC ####[address] [address] USACO2 [Moles/Vol]17.7 mmol/LLow21.0-31.0Norwalk Memorial HospitalComment on above:Order Comment: LINEPerformed By: #### CMP, ESR, MG, CBC ####[address] [address] USACreatinine [Mass/Vol] 5.14 mg/dLHigh0.70-1.30Norwalk Memorial HospitalComment on above:Order Comment: LINEPerformed By: #### CMP, ESR, MG, CBC ####[place] [address] [place] [address] USACreatinine Clr Calc Rmwkilgv36.47 [facility] OhioComment on above:Order Comment: LINE Performed By: #### CMP, ESR, MG, CBC ####[place] [address] [place] [address] USAGFR/1.73 sq M.predicted MDRD (S/P/Bld) [Vol rate/Area]12.311 mL/min/{1.73_m2}[facility] OhioComment on above:Order Comment: LINEPerformed By: #### CMP, ESR, MG, CBC ####[place] [address] USAGlobulin (S) [Mass/Vol]3.8 g/dLNoMain Campus Medical CenterComment on above:Order Comment: LINEPerformed By: #### CMP, ESR, MG, CBC ####[place] [address] USAGlucose [Mass/Vol]97 mg/dLNormal 74-109Norwalk Memorial HospitalComment on above:Order Comment: LINE Result Comment: Random Glucose Reference Range is dependent on time and content of last meal. Glucose of more than 200 mg/dL in a nonstressed, ambulatory subject supports the diagnosis of Diabetes Mellitus. ADA recommended reference rangePerformed By: #### CMP, ESR, MG, CBC ####[place] [id number] [facility] Potassium [Moles/Vol]4.3 mmol/LNormal3.5-5.1FWyandot Memorial Hospital Comment on above:Order Comment: LINEPerformed By: #### CMP, ESR, MG, CBC ####[place] [address] USAProtein [Mass/Vol]6.3 g/dLLow6.4-8.9Norwalk Memorial HospitalComment on above: Order Comment: LINEPerformed By: #### CMP, ESR, MG, CBC ####[address] [place] [address] USASodium [Moles/Vol]135 mmol/L Err156-145PxnkfoenvNorwalk Memorial HospitalComment on above:Order Comment: LINE Performed By: #### CMP, ESR, MG, CBC ####[facility] [place] [address] USAUrea nitrogen [Mass/Vol]111 mg/dLHigh7-25 [facility] HospitalComment on above:Order Comment: LINEPerformed By: #### CMP, ESR, MG, CBC ####[facility] [place] [address] USAErythrocyte Sedimentation Rateon 61-76-0488ABL (Bld) [Velocity]81 mm/hHigh0Norwalk Memorial HospitalComment on above: Order Comment: LINEResult Comment: PERFORMED BY: [facility] [address] [place] [address] PATHOLOGIST EMERGENCY PHYSICIAN SESAR VAUGHN M.D.Performed By: #### CMP, ESR, MG, CBC ####[place] [address] [place] [address] USAErythrocyte sedimentation rate by Photometric methodOrdered By: Caleb Farrar on 46-64-2403DKG Photometric method (Bld) [Velocity]81 mm/hr0-19Norwalk Memorial HospitalGlucose Poct Glucometerson 81-55-6098Bikwcxm7Gkn5: Cleaned MeterNoMain Campus Medical CenterComment on above:Result Comment: PERFORMED BY: [facility] [address] [place] [address] PATHOLOGIST EMERGENCY PHYSICIAN SESAR VAUGHN M.D.Performed By: #### GLULS ####Point of Care testing,Glucose [Mass/Vol]163 mg/dLKing's Daughters Medical Center OhioComment on above: Result Comment: Random Glucose Reference Range is dependent on time and content of last meal. Glucose of more than 200 mg/dL in a nonstressed, ambulatory subject supports the diagnosis of Diabetes Mellitus.Performed By: #### GLULS ####Point of Care testing,Glucose [Mass/Vol]142 mg/dLKing's Daughters Medical Center OhioComment on above: Result Comment: Random Glucose Reference Range is dependent on time and content of last meal. Glucose of more than 200 mg/dL in a nonstressed, ambulatory subject supports the diagnosis of Diabetes Mellitus. PERFORMED BY: [place] [address] PATHOLOGIST EMERGENCY PHYSICIAN SESAR VAUGHN M.D.Performed By: #### RENAL, CBC #### [place] [address] USAGlucose [Mass/Vol]183 mg/dLKing's Daughters Medical Center OhioComment on above:Result Comment: Random Glucose Reference Range is dependent on time and content of last meal. Glucose of more than 200 mg/dL in a nonstressed, ambulatory subject supports the diagnosis of Diabetes Mellitus. PERFORMED BY: [place] [address] PATHOLOGIST EMERGENCY PHYSICIAN SESAR VAUGHN M.D.Performed By: #### RENAL, CBC #### [place] [address] USAGlucose [Mass/Vol]118 mg/dLKing's Daughters Medical Center OhioComment on above:Result Comment: Random Glucose Reference Range is dependent on time and content of last meal. Glucose of more than 200 mg/dL in a nonstressed, ambulatory subject supports the diagnosis of Diabetes Mellitus. PERFORMED BY: [place] [address] PATHOLOGIST EMERGENCY PHYSICIAN SESAR VAUGHN M.D.Performed By: #### GLULS #### Point of Care testing ,Omhouor3Acw4: Cleaned MeterKing's Daughters Medical Center OhioComment on above:Result Comment: PERFORMED BY: [place] [address] PATHOLOGIST EMERGENCY PHYSICIAN SESAR VAUGHN M.D.Performed By: #### RENAL, CBC #### [place] [address] USAGlucose [Mass/Vol]218 mg/dLNoalNorwalk Memorial HospitalComment on above:Result Comment: Random Glucose Reference Range is dependent on time and content of last meal. Glucose of more than 200 mg/dL in a nonstressed, ambulatory subject supports the diagnosis of Diabetes Mellitus.Performed By: #### RENAL, CBC #### [facility] [address] [place] [id number] USAMagnesiumon 69-32-8696Qbsydqqmx [Mass/Vol]2.0 mg/dLNormal 1.9-2.7FWyandot Memorial HospitalComment on above:Order Comment: LINE Result Comment: PERFORMED BY: [facility] [address] [place] [address] PATHOLOGIST EMERGENCY PHYSICIAN SESAR VAUGHN M.D.Performed By: #### CMP, ESR, MG, CBC ####[facility] [address] [place] [id number] USAMagnesium [Mass/volume] in Serum or PlasmaOrdered By: Caleb Farrar on 77-88-1430Zjftbusbn [Mass/Vol]2.0 mg/dL1.9-2.7FWyandot Memorial HospitalAlanine aminotransferase [Enzymatic activity/volume] in Serum or PlasmaOrdered By: Livia Lu on 27-30-9511XQF [Catalytic activity/Vol]18 U/L7-52Norwalk Memorial HospitalAlbumin [Mass/volume] in Serum or Plasma by Bromocresol green (BCG) dye binding metho Ordered By: Livia Lu on 50-22-0443Dijrxdu BCG dye [Mass/Vol]2.8 g/dL 3.5-5.7FWyandot Memorial HospitalAlkaline phosphatase [Enzymatic activity/volume] in Serum or PlasmaOrdered By: Livia Lu on 67-99-6803JCM [Catalytic activity/Vol]200 U/K26-367GtxqxdkrtNorwalk Memorial HospitalAspartate aminotransferase [Enzymatic activity/volume] in Serum or PlasmaOrdered By: Livia Lu on 52-91-7588WIJ [Catalytic activity/Vol]31 U/H72-11CjpfmmulsNorwalk Memorial HospitalAutomated erythrocytes count in urine sediment (number/area)Ordered By: Livia Lu on 40-07-9366EKG Auto (Urine sed) [#/Area]3-4 [HPF]0-4FWyandot Memorial HospitalAutomated leukocytes count in urine sediment (number/area)Ordered By: Livia Zaratesushila on 30-52-2191PFT Auto (Urine sed) [#/Area]3-4 [HPF]0-4FWyandot Memorial HospitalBacterial blood cultureOrdered By: Livia Elliotsushila on 46-88-1103Mlxipomt identified Cx Nom (Bld)NO GROWTH 5 DAYSNorwalk Memorial HospitalBasophils Auto (Bld) [#/Vol]Ordered By: Livia Lu on 87-46-4184Uroofchii (Bld) [#/Vol]0.0 10*3/uL0.0-0.2FWyandot Memorial HospitalBasophils/100 WBC Auto (Bld) Ordered By: Livia Zaratemiclarissa on 94-97-5583Jntdmeglz/100 WBC (Bld)0.5 %.Norwalk Memorial HospitalBilirubin Test strip Ql (U)Ordered By: Livia Lu on 62-00-0570Amolmckll Ql (U)NegativeNegativeNorwalk Memorial Hospital Bilirubin.total [Mass/volume] in Serum or PlasmaOrdered By: Livia Lu on 55-00-4042Irwgtbbwf [Mass/Vol]0.6 mg/dL0.3-1.0[facility] Blood Cultureon 49-64-6900Whizwtbw identified Cx Nom (Bld)NO GROWTH 5 DAYS PERFORMED BY: [place] [address] PATHOLOGIST EMERGENCY PHYSICIAN SESAR VAUGHN M.D.NormalNorwalk Memorial HospitalComment on above: Performed By: #### CBCNO, BMP #### [place] [address] USACOVID CepheidOrdered By: Livia Lu on 06-11-2022 SARS-CoV-2 (COVID-19) Ab IA QlNegativeNegMercy Health Willard Hospital Comment on above:This is a duplicate Cepheid Xpert Xpress CoV-2/Flu/RSV Plus RNA by RT-PCR result to be used for statistical tracking purpose only.SARS-CoV-2 (COVID-19) RNA HUMBLE+probe Ql (Unsp spec)[facility] Memorial HospitalCOVID-19 / Flu A/B / RSV PCRon 12-47-9455FBTM-CoV-2 (COVID-19) RNA HUMBLE+probe Ql (Unsp spec)COVID-19 Cepheid Result Negative for SARS-CoV-2 RNA by RT-PCR Flu A Cepheid Result Negative for Flu A RNA by RT-PCR Flu B Cepheid Result Negative for Flu B RNA by RT-PCR RSV Cepheid Result Negative for RSV RNA by RT-PCR COVID19 Blank Space Reference: Negative COVID19 Blank Space Cepheid Disclaimer The Cepheid Xpert Xpress CoV-2/Flu/RSV [...] or Cepheid Disclaimer revoked sooner. PERFORMED BY: [address] [address] PATHOLOGIST EMERGENCY PHYSICIAN SESAR VAUGHN M.D.NormalNorwalk Memorial HospitalComment on above: Performed By: #### RENAL, CBC #### [facility] [address] [place] [address] USACalcium [Mass/volume] in Serum or PlasmaOrdered By: Livia Lu on 76-96-3701Wuiwgkf [Mass/Vol]8.4 mg/dL8.6-10.3FWyandot Memorial HospitalCarbon dioxide, total [Moles/volume] in Serum or Plasma Ordered By: Livia Lu on 32-53-5377HL2 [Moles/Vol]18.3 mmol/L21.0-31.0 [facility] Memorial HospitalCepheid COVID PCR Negativeon 06-11-2022 SARS-CoV-2 (COVID-19) RNA HUMBLE+probe Ql (Unsp spec)NegativeNormalNegative [facility] HospitalComment on above:Result Comment: This is a duplicate CepTouchTunes Interactive Networksid Xpert Xpress CoV-2/Flu/RSV Plus RNA by RT-PCR result to be used for statistical tracking purpose only. PERFORMED BY: [address] [address] PATHOLOGIST EMERGENCY PHYSICIAN SESAR VAUGHN M.D.Performed By: #### RENAL, CBC #### [facility] [address] [place] [address] USAChloride [Moles/volume] in Serum or PlasmaOrdered By: Livia Lu on 55-75-1155Cskmryjv [Moles/Vol]106 mmol/G92-597WzcfnkquoNorwalk Memorial HospitalColor Auto (U)Ordered By: Livia Lu on 06-11-2022 Color (U)YellowYellowNorwalk Memorial HospitalComplete Blood Count Auto Diffon 93-36-1382Rpvbalthu (Bld) [#/Vol]0.0 10*3/uLNormal0.0-0.2FWyandot Memorial HospitalComment on above:Result Comment: PERFORMED BY: [facility] [address] [place] [address] PATHOLOGIST EMERGENCY PHYSICIAN SESAR VAUGHN M.D.Performed By: #### GLULS #### Point of Care testing ,Basophils/100 WBC (Bld)0.5 %Normal.[facility] Memorial HospitalComment on above:Performed By: #### GLULS #### Point of Care testing ,Eosinophils (Bld) [#/Vol]0.2 10*3/uLNormal0.0-0.45Nor[facility] Memorial HospitalComment on above:Performed By: #### GLULS #### Point of Care testing ,Eosinophils/100 WBC (Bld)2.0 %Normal.[facility]walk Memorial HospitalComment on above:Performed By: #### GLULS #### Point of Care testing ,Erythrocyte distribution width (RBC) [Ratio]16.4 %High12.0-14.8[facility] HospitalComment on above:Performed By: #### GLULS #### Point of Care testing ,Hematocrit (Bld) [Volume fraction]23.3 %Low38.8-50.0[facility] HospitalComment on above:Performed By: #### GLULS #### Point of Care testing ,Hemoglobin (Bld) [Mass/Vol]7.7 g/dLLow13.0-17.0[facility] HospitalComment on above:Performed By: #### GLULS #### Point of Care testing ,Lymphocytes (Bld) [#/Vol]0.3 10*3/uLLow1.00-4.8[facility] HospitalComment on above:Performed By: #### GLULS #### Point of Care testing ,Lymphocytes/100 WBC (Bld)3.2 %Normal.[facility] HospitalComment on above:Performed By: #### GLULS #### Point of Care testing ,MCH (RBC) [Entitic mass]27.1 pgLow27.5-35.2FWyandot Memorial Hospital Comment on above:Performed By: #### GLULS #### Point of Care testing ,MCV (RBC) [Entitic vol]81.5 fLLow83.5-101[facility] Comment on above:Performed By: #### GLULS #### Point of Care testing ,Mean Corpuscular HGB Conc33.2 g/pBWycidf85.5-35.6FWyandot Memorial HospitalComment on above:Performed By: #### GLULS #### Point of Care testing ,Monocytes (Bld) [#/Vol]0.7 10*3/uLNormal0.0-0.8[facility] HospitalComment on above:Performed By: #### GLULS #### Point of Care testing ,Monocytes/100 WBC (Bld)17.28 %Normal0.00-20.00[facility] Comment on above:Performed By: #### GLULS #### Point of Care testing ,Monocytes/100 WBC (Bld)7.2 %Normal.[facility] HospitalComment on above:Performed By: #### GLULS #### Point of Care testing ,Neutrophils (Bld) [#/Vol]8.9 10*3/uLHigh1.8-7.7FWyandot Memorial HospitalComment on above:Performed By: #### GLULS #### Point of Care testing ,Neutrophils/100 WBC (Bld)87.1 %Normal.[facility] HospitalComment on above:Performed By: #### GLULS #### Point of Care testing ,NRBC%0.0 /100{WBC}Normal0-0.5FWyandot Memorial HospitalComment on above: Performed By: #### GLULS #### Point of Care testing ,Platelet mean volume (Bld) [Entitic vol]8.8 fLNormal6.6-10.1FWyandot Memorial HospitalComment on above:Performed By: #### GLULS #### Point of Care testing ,Platelets (Bld) [#/Vol]244 10*3/rNNnhzje896-686AorwviopzNorwalk Memorial HospitalComment on above:Performed By: #### GLULS #### Point of Care testing ,RBC (Bld) [#/Vol]2.86 10*6/uLLow3.90-5.60[facility] Comment on above:Performed By: #### GLULS #### Point of Care testing ,WBC (Bld) [#/Vol]10.2 10*3/uLNormal4.1-10.5FWyandot Memorial Hospital Comment on above:Performed By: #### GLULS #### Point of Care testing ,Comprehensive Metabolic Panelon 30-17-6359Jmactnc [Mass/Vol]2.8 g/dLLow3.5-5.7 [facility] HospitalComment on above:Performed By: #### CRP #### [facility] [address] [place] [address] USAAlbumin/Globulin [Mass ratio]0.7 {ratio}NormalNorwalk Memorial HospitalComment on above:Performed By: #### CRP #### [facility] [address] [place] [address] USAALP [Catalytic activity/Vol]200 U/WJdvf47-176KevtpejbfNorwalk Memorial HospitalComment on above:Performed By: #### CRP #### [facility] [address] [place] [address] USAALT [Catalytic activity/Vol]18 U/LNormal7-52[facility] HospitalComment on above:Performed By: #### CRP #### [facility] [address] [place] [address] USAAnion gap [Moles/Vol]17.1 mmol/LHigh6.0-15.0[facility] HospitalComment on above:Performed By: #### CRP #### [facility] [address] [place] [address] USAAST [Catalytic activity/Vol]31 U/ZQmgwix58-39RpbyfuhxrNorwalk Memorial HospitalComment on above:Performed By: #### CRP #### [facility] [address] [place] [address] USABilirubin [Mass/Vol]0.6 mg/dLNormal0.3-1.0[facility] HospitalComment on above:Performed By: #### CRP #### [facility] [address] [place] [address] USACalcium [Mass/Vol]8.4 mg/dLLow8.6-10.3FWyandot Memorial HospitalComment on above:Performed By: #### CRP #### [facility] [address] [place] [address] USAChloride [Moles/Vol]106 mmol/QPntren51-512BmbustxqoNorwalk Memorial HospitalComment on above:Performed By: #### CRP #### [facility] [address] [place] [address] USACO2 [Moles/Vol]18.3 mmol/LLow21.0-31.0[facility] HospitalComment on above:Performed By: #### CRP #### [facility] [address] [place] [address] USACreatinine [Mass/Vol]5.45 mg/dLHigh0.70-1.30[facility] HospitalComment on above:Performed By: #### CRP #### [place] [address] USACreatinine Clr Calc Geqiqzvq69.36NoMain Campus Medical CenterComment on above:Result Comment: PERFORMED BY: [place] [address] PATHOLOGIST EMERGENCY PHYSICIAN SESAR VAUGHN M.D.Performed By: #### CRP #### [facility] [address] [place] [address] USAGFR/1.73 sq M.predicted MDRD (S/P/Bld) [Vol rate/Area] 11.475 mL/min/{1.73_m2}NormalNorwalk Memorial HospitalComment on above: Performed By: #### CRP #### [facility] [address] [place] [address] USAGlobulin (S) [Mass/Vol]4.1 g/dLKing's Daughters Medical Center OhioComment on above:Performed By: #### CRP #### [facility] [address] [place] [address] USAGlucose [Mass/Vol]62 mg/nVZuz35-497CebwalqwqNorwalk Memorial HospitalComment on above:Result Comment: Random Glucose Reference Range is dependent on time and content of last meal. Glucose of more than 200 mg/dL in a nonstressed, ambulatory subject supports the diagnosis of Diabetes Mellitus. ADA recommended reference rangePerformed By: #### CRP #### [facility] [address] [place] [address] USAPotassium [Moles/Vol]4.4 mmol/LNormal3.5-5.1FWyandot Memorial HospitalComment on above:Performed By: #### CRP #### [facility] [address] [place] [id number] USAProtein [Mass/Vol]6.9 g/dLNormal6.4-8.9[facility] HospitalComment on above:Performed By: #### CRP #### [facility] [address] [place] [id number] USASodium [Moles/Vol]137 mmol/CBzaiia695-657XbayonagnNorwalk Memorial HospitalComment on above:Performed By: #### CRP #### [facility] [address] [place] [address] USAUrea nitrogen [Mass/Vol]111 mg/dLHigh7-25[facility] HospitalComment on above:Performed By: #### CRP #### [facility] [address] [place] [address] USACreatinine [Mass/volume] in Serum or PlasmaOrdered By: Livia Lu on 19-14-0817Gzbbynezpo [Mass/Vol]5.45 mg/dL0.70-1.30[facility] HospitalDipstick and Microscopicon 38-72-4033Qlkyljugpz (U)Clear NormalCleMagruder Memorial HospitalComment on above:Order Comment: Name Collection Type:: Clean-Voided MidstreamPerformed By: #### RENAL, CBC #### [facility] [address] [place] [id number] USABacteria,UrineNone SeenNormalNone SeenNorwalk Memorial HospitalComment on above:Order Comment: Name Collection Type:: Clean- Voided MidstreamPerformed By: #### RENAL, CBC #### [place] [address] USABilirubin,UrineNegativeNormalNegativeNorwalk Memorial HospitalComment on above:Order Comment: Name Collection Type:: Clean- Voided MidstreamPerformed By: #### RENAL, CBC #### [place] [address] USAColor (U)YellowNormalYellowNorwalk Memorial HospitalComment on above:Order Comment: Name Collection Type:: Clean-Voided MidstreamPerformed By: #### RENAL, CBC #### [place] [address] USAGlucose Ql (U)NormalNormalNormToledo HospitalComment on above:Order Comment: Name Collection Type:: Clean-Voided MidstreamPerformed By: #### RENAL, CBC #### [place] [address] USAHyaline Casts,Usyrc6-4Xlzvrq1-2OkjsqpasqNorwalk Memorial HospitalComment on above:Order Comment: Name Collection Type:: Clean-Voided MidstreamResult Comment: PERFORMED BY: [place] [address] PATHOLOGIST EMERGENCY PHYSICIAN SESAR VAUGHN M.D.Performed By: #### RENAL, CBC #### [place] [address] USAKetones Ql (U)NegativeNormalNegativeNorwalk Memorial HospitalComment on above:Order Comment: Name Collection Type:: Clean- Voided MidstreamPerformed By: #### RENAL, CBC #### [place] [address] USALeukocyte esterase Test strip Ql (U)NegativeNormalNegative [facility] HospitalComment on above:Order Comment: Name Collection Type:: Clean-Voided MidstreamPerformed By: #### RENAL, CBC #### [place] [address] USANitrite,UrineNegativeNormalNegativeNorwalk Memorial HospitalComment on above:Order Comment: Name Collection Type:: Clean- Voided MidstreamPerformed By: #### RENAL, CBC #### [place] [address] USAOccult Blood,UrineNegativeNormalNegMercy Health Willard HospitalComment on above:Order Comment: Name Collection Type:: Clean- Voided MidstreamResult Comment: PERFORMED BY: [place] [address] PATHOLOGIST EMERGENCY PHYSICIAN SESAR VAUGHN M.D.Performed By: #### RENAL, CBC #### [place] [address] USApH (U)5.5 [pH]Normal5.0-9.0[facility] HospitalComment on above:Order Comment: Name Collection Type:: Clean-Voided MidstreamPerformed By: #### RENAL, CBC #### [place] [address] USAProtein (U) [Mass/Vol]300 mg/dLHighNegMercy Health Willard HospitalComment on above:Order Comment: Name Collection Type:: Clean-Voided MidstreamPerformed By: #### RENAL, CBC #### [place] [address] USARBC,Blfto7-7Hyiqca2-7LgmarhdppWyandot Memorial Hospital Comment on above:Order Comment: Name Collection Type:: Clean-Voided Midstream Performed By: #### RENAL, CBC #### [place] [address] USASpecificy [place],Urine1.041Ooaphy8.001-1.030[facility] HospitalComment on above:Order Comment: Name Collection Type:: Clean-Voided MidstreamPerformed By: #### RENAL, CBC #### [place] [address] USASquamous Epithelial Cell,Lywhb6-8Oxbycc8-9JpvvllpqeWyandot Memorial HospitalComment on above:Order Comment: Name Collection Type:: Clean-Voided MidstreamPerformed By: #### RENAL, CBC #### [facility] [address] [place] [address] USAUrobilinogen,UrineNormalNormalNormalNorwalk Memorial HospitalComment on above:Order Comment: Name Collection Type:: Clean- Voided MidstreamPerformed By: #### RENAL, CBC #### [facility] [address] [place] [address] USAWBC,Buxzg9-8Hgwjlc8-4TsvaxeisjWyandot Memorial Hospital Comment on above:Order Comment: Name Collection Type:: Clean-Voided Midstream Performed By: #### RENAL, CBC #### [facility] [address] [place] [id number] USAEosinophils Auto (Bld) [#/Vol]Ordered By: Livia Lu on 07-03-0058Hmezmzclefu (Bld) [#/Vol]0.2 10*3/uL0.0-0.45Nor[facility] HospitalEosinophils/100 WBC Auto (Bld)Ordered By: Livia Lu on 34-50-3331Kmamtmuhrsq/100 WBC (Bld)2.0 %.[facility] Erythrocyte distribution width Auto (RBC) [Ratio]Ordered By: Livia Lu on 13-10-0807Nouxhykdwnr distribution width (RBC) [Ratio]16.4 %12.0-14.8[facility] HospitalGlobulin Calc (S) [Mass/Vol]Ordered By: Livia Lu on 82-96-0793Weahreet (S) [Mass/Vol]4.1 g/dLNorwalk Memorial Hospital Glucose Glucometer (BldC) [Mass/Vol]Ordered By: Livia Lu on 06-11-2022 Glucose [Mass/Vol]83 mg/dLNorwalk Memorial HospitalComment on above: Random Glucose Reference Range is dependent on time and content of last meal. Glucose of more than 200 mg/dL in a nonstressed, ambulatory subject supports the diagnosis of Diabetes Mellitus.Glucose Poct Glucometerson 78-60-8847Hvvihjs2 Glu2: Cleaned MeterNoMain Campus Medical CenterComment on above: Result Comment: PERFORMED BY: [facility] [address] [place] [address] PATHOLOGIST EMERGENCY PHYSICIAN SESAR VAUGHN M.D.Performed By: #### RENAL, CBC #### [facility] [address] [place] [address] USAGlucose [Mass/Vol]83 mg/dLNoMain Campus Medical CenterComment on above:Result Comment: Random Glucose Reference Range is dependent on time and content of last meal. Glucose of more than 200 mg/dL in a nonstressed, ambulatory subject supports the diagnosis of Diabetes Mellitus.Performed By: #### RENAL, CBC #### [facility] [address] [place] [address] USAGlucose [Mass/volume] in Serum or PlasmaOrdered By: Livia Lu on 55-70-8533Frpepph [Mass/Vol]62 mg/oK65-648ModlnqibzNorwalk Memorial HospitalComment on above:ADA recommended reference rangeRandom Glucose Reference Range is dependent on time and content of last meal. Glucose of more than 200 mg/dL in a nonstressed, ambulatory subject supports the diagnosisof Diabetes Mellitus.Hematocrit Auto (Bld) [Volume fraction]Ordered By: Livia Lu on 36-91-2742Xeevexvuxk (Bld) [Volume fraction]23.3 %38.8-50.0[facility] HospitalHemoglobin [Mass/volume] in BloodOrdered By: Livia Lu on 74-20-2275Ooeohshxvw (Bld) [Mass/Vol]7.7 g/dL13.0-17.0[facility] HospitalKetones Auto test strip (U) [Mass/Vol]Ordered By: Livia Lu on 04-19-5078Wlcrmgl (U) [Mass/Vol]NegativeNegativeNorwalk Memorial HospitalLaboratory - Chemistry and Chemistry - challengeOrdered By: Livia Lu on 78-76-0390PIS/1.73 sq M.predicted MDRD (S/P/Bld) [Vol rate/Area]11.475 mL/min/{1.73_m2}[facility] HospitalLaboratory - UrinalysisOrdered By: Livia Lu on 78-77-6969Cgmfuaj casts LM Ql (Urine sed)0-8 [LPF]0-8[facility] HospitalLactate [Moles/volume] in Serum or PlasmaOrdered By: Livia Lu on 84-92-2539Qicyxma [Moles/Vol]1.1 mmol/L 0.5-2.2FWyandot Memorial HospitalLactic Acidon 98-04-5940Rachirv [Moles/Vol]1.1 mmol/LNormal0.5-2.2FWyandot Memorial HospitalComment on above:Result Comment: PERFORMED BY: [facility] [place] [address] PATHOLOGIST EMERGENCY PHYSICIAN SESAR VAUGHN M.D.Performed By: #### GLULS #### Point of Care testing ,LeukoReduced RBCon 33-28-4741OmvizCquiivk RBCTRANSFUSED 06/13/22 1200Normal [facility] HospitalLeukocytes [#/volume] corrected for nucleated erythrocytes in Blood by Automated counOrdered By: Livia Lu on 06-11-2022 WBC corrected for nucl RBC Auto (Bld) [#/Vol]10.2 10*3/uL4.1-10.5FWyandot Memorial HospitalLymphocytes Auto (Bld) [#/Vol]Ordered By: Livia Lu on 96-70-6892Kzcogifuosp (Bld) [#/Vol]0.3 10*3/uL1.00-4.8[facility] HospitalLymphocytes/100 WBC Auto (Bld)Ordered By: Livia Lu on 23-44-5360Opfyzjelivt/100 WBC (Bld)3.2 %.[facility] Auto (RBC) [Entitic mass]Ordered By: Livia Lu on 24-03-2489NKF (RBC) [Entitic mass]27.1 pg27.5-35.2FProMedica Defiance Regional HospitalHC Auto (RBC) [Mass/Vol]Ordered By: Livia Lu on 61-61-7023ETJB (RBC) [Mass/Vol]33.2 g/dL32.5-35.6FWyandot Memorial HospitalMCV Auto (RBC) [Entitic vol] Ordered By: Livia Lu on 45-53-7829PPP (RBC) [Entitic vol]81.5 fL83.5-101 [facility] HospitalMonocyte distribution width [Entitic volume] in Blood by AutomatedOrdered By: Livia Lu on 53-38-7891Rgcwnyls distribution width Auto (Bld) [Entitic vol]17.28 %0.00-20.00[facility] Monocytes Auto (Bld) [#/Vol]Ordered By: Livia Lu on 32-82-5154Nluosnrys (Bld) [#/Vol]0.7 10*3/uL0.0-0.8[facility] HospitalMonocytes/100 WBC Auto (Bld)Ordered By: Livia Lu on 29-37-5326Ecnoiqrid/100 WBC (Bld) 7.2 %.[facility] HospitalNeutrophils Auto (Bld) [#/Vol]Ordered By: Livia Lu on 19-32-2523Aytkzdssqti (Bld) [#/Vol]8.9 10*3/uL1.8-7.7 [facility] HospitalNeutrophils/100 WBC Auto (Bld)Ordered By: Livia Lu on 10-80-9633Ymixgjesryw/100 WBC (Bld)87.1 %.[facility] HospitalNitrite Test strip Ql (U)Ordered By: Livia Lu on 06-11-2022 Nitrite Ql (U)NegativeNegativeNorwalk Memorial HospitalNo Panel InformationOrdered By: Livia Lu on 72-40-9525Jahhxya Glucose CommentGlu2: cleaned meterNorwalk Memorial HospitalPharmacy Creatinine Clearance (Chem18.36[facility] HospitalNucleated erythrocytes [Presence] in Blood by Automated countOrdered By: Livia Lu on 52-74-0709Nbyntsbqh RBC Auto Ql (Bld)0.0 /100{WBC}0-0.5FWyandot Memorial HospitalPlatelet mean volume Auto (Bld) [Entitic vol]Ordered By: Livia Lu on 85-37-7743Zbymwtkv mean volume (Bld) [Entitic vol]8.8 fL6.6-10.1FWyandot Memorial Hospital Platelets Auto (Bld) [#/Vol]Ordered By: Livia Lu on 44-87-6288Foieqquxe (Bld) [#/Vol]244 10*3/nV023-388CtcyqplhvNorwalk Memorial HospitalPotassium [Moles/volume] in Serum or PlasmaOrdered By: Livia Lu on 06-11-2022 Potassium [Moles/Vol]4.4 mmol/L3.5-5.1FWyandot Memorial HospitalProtein Auto test strip (U) [Mass/Vol]Ordered By: Livia Lu on 72-32-8430Uxgdcos (U) [Mass/Vol]300 mg/dLNegativeNorwalk Memorial HospitalProtein [Mass/volume] in Serum or PlasmaOrdered By: Livia Lu on 38-38-2298Eqrnfua [Mass/Vol]6.9 g/dL6.4-8.9[facility] HospitalRBC Auto (Bld) [#/Vol]Ordered By: Livia Lu on 90-45-1251HOT (Bld) [#/Vol]2.86 10*6/uL 3.90-5.60[facility]ermont Hospitalerum or plasma albumin/globulin mass ratioOrdered By: Livia Lu on 69-41-8954Gorgiax/Globulin [Mass ratio]0.7 {ratio}[facility] Hospitalerum or plasma anion gap determination Ordered By: Livia Lu on 73-74-9316Qvsss gap [Moles/Vol]17.1 mmol/L 6.0-15.0[facility]erm[facility] Hospitalodium [Moles/volume] in Serum or PlasmaOrdered By: Livia Lu on 58-02-8180Mrjvei [Moles/Vol]137 mmol/L 136-145Mer[facility] Health Clermont Hospitalpecific gravity Auto test strip (U) [Rel density]Ordered By: Livia Lu on 83-46-9601Yjjdygqv gravity (U) [Rel density]1.0141.001-1.030[facility]erm[facility] Hospitalquamous epithelial cells detection in urine sediment by light microscopyOrdered By: Livia Lu on 83-07-1875Drewasbaqy cells.squamous LM Ql (Urine sed)1-2 [HPF]0-2FWyandot Memorial HospitalType and Screenon 69-07-7648VPG and Rh group Nom (Bld) Blood group A Rh(D) positiveNoMain Campus Medical CenterComment on above:Order Comment: Transfuse now? Y Number of units to transfuse now? 1 Transfuse now? Y Number of units to transfuse now? 1Urea nitrogen [Mass/volume] in Serum or PlasmaOrdered By: Livia Lu on 52-75-3082Wzzg nitrogen [Mass/Vol]111 mg/dL7-[facility] HospitalUrine bacteria detection by automated methodOrdered By: Livia Lu on 49-26-7409Uabeyucv Auto Ql (U)None seenNone SeenNorwalk Memorial HospitalUrine clarity by refractometry automatedOrdered By: Livia Lu on 12-70-2158Yniyyko Refractometry automated (U)ClearCleMagruder Memorial HospitalUrine glucose measurement by automated test strip (mass/volume)Ordered By: Livia Lu on 05-89-2898Eihuhgv Auto test strip (U) [Mass/Vol]Normal mg/dLAcmc Healthcare System GlenbeighUrine hemoglobin detection by automated test stripOrdered By: Livia Lu on 69-75-4020Shtsislffk Auto test strip Ql (U) NegativeNegMercy Health Willard HospitalUrine leukocyte esterase detection by automated test stripOrdered By: Livia Lu on 06-11-2022 Leukocyte esterase Auto test strip Ql (U)NegativeNegMercy Health Willard HospitalUrobilinogen Auto test strip (U) [Mass/Vol]Ordered By: Livia Lu on 12-18-6550Dygwjbywfila (U) [Mass/Vol]Normal mg/dLKing's Daughters Medical Center OhioWBC Auto (Bld) [#/Vol]Ordered By: Livia Lu on 35-80-4986CCB (Bld) [#/Vol]10.2 10*3/uL4.1-10.5FWyandot Memorial Hospital XR foot RT min 3V*on 07-72-6887PV foot RT min 3V*[facility] [address] [place] [address] [place] [address] XRay Report Signed Patient: Gopal Yates Jr MR#: [id number] : 1965 Acct:[id number] Age/Sex: 56 / M ADM Date: 06/11/22 Loc: ER Room: [facility] ER Attending Dr: Copies to: Livia Lu APRN Ordering Provider: Livia Lu APRN Date of Service: 06/11/22 XR/XR chest 1V portable: Fever ([id number]) XR/XR foot RT min 3V*: Fever CLINICAL [...] Tana Perry M.D.06/11/2022 5:14 PM Dictation Location: [place] [address] Transcribed By: [facility] 06/11/221713 Dictated By: Tana Perry MD 06/11/221704 Signed By: 06/11/22 171NormalNorwalk Memorial HospitalpH Auto test strip (U) Ordered By: Livia Lu on 55-27-7470pB (U)5.5 [pH]5.0-9.0[facility] HospitalAerobic cultureOrdered By: Eddy Griggs on 20-42-6736Skprkutd identified Aer cx Nom (Unsp spec)2 DaysNorwalk Memorial Hospital Superficial Wound Cultureon 33-16-5089Okhblvmvofx Wound CultureLight Normal Skin Efren 2 Days PERFORMED BY: [address] [address] PATHOLOGIST EMERGENCY PHYSICIAN SESAR VAUGHN M.D.NormalNorwalk Memorial HospitalComment on above: Performed By: #### CBCNO, BMP #### [facility] [address] [place] [address] USAC reactive protein [Mass/volume] in Serum or PlasmaOrdered By: Ashutosh Thomas on 87-79-5908GJC [Mass/Vol]11.7 mg/dL0.0-0.4FWyandot Memorial HospitalC-Reactive Proteinon 06-72-1472C-Reactive Cejhnim46.7 mg/dLHigh0.0-0.4FWyandot Memorial HospitalComment on above:Result Comment: PERFORMED BY: [place] [address] PATHOLOGIST EMERGENCY PHYSICIAN SESAR VAUGHN M.D.Performed By: #### CRP #### [facility] [address] [place] [address] USAHepatitis B Core Antibodyon 16-29-0678Jdtnowygb B Core AntibodyNegativeNormalNegativeNorwalk Memorial HospitalComment on above: Result Comment: Performed at: - [facility] [id number] Allergy Physician: Rob Loza PhD, Phone: [phone] By: #### RENAL, CBC #### [facility] [address] [place] [address] USAHepatitis B Surface Antibodyon 66-49-8428Wseolaxeg B Surface AntibodyNon-ReactiveNormal.[facility] HospitalComment on above:Result Comment: Non Reactive: Inconsistent with immunity, less than 10 mIU/mL Reactive: Consistent with immunity, greater than 9.9 mIU/mLPerformed By: #### RENAL, CBC #### [place] [address] USAHepatitis B Surface Antigenon 79-02-6549CPcAe Screen NegativeNormalNegativeNorwalk Memorial HospitalComment on above:Result Comment: PERFORMED BY: [place] [address] PATHOLOGIST EMERGENCY PHYSICIAN SESAR VAUGHN M.D.Performed By: #### RENAL, CBC #### [place] [address] USAHepatitis B virus surface Ag [Presence] in Serum or Plasma by ImmunoassayOrdered By: Yvonne Barboza on 19-75-6584GIX surface Ag IA QlNegative NegativeNorwalk Memorial HospitalNo Panel InformationOrdered By: Yvonne Barboza on 18-57-7559Fztcaoeck B Core Total AntibodyNegativeNegativeNorwalk Memorial HospitalComment on above:Performed at: [address] [id number] Director: Rob Loza PhD, Phone: [phone] hepatitis B virus surface antibody detectionOrdered By: Yvonne Barboza on 46-17-3164QSD surface Ab Ql (S)Non-Reactive.[facility] HospitalComment on above:Non Reactive: Inconsistent with immunity, less than 10 mIU/mL Reactive: Consistent with immunity, greater than 9.9 mIU/mLArterial blood standard base excess determination by calculationOrdered By: Sohan Kellogg on 86-41-9050Xxin excess standard Calc (BldA) [Moles/Vol]-5 mmol/K-4-3DaczweryhWyandot Memorial HospitalBasic Metabolic Panelon 15-06-3288Uouht gap [Moles/Vol] 14.8 mmol/LNormal6.0-15.0[facility] HospitalComment on above: Performed By: #### GLENDY, BMP #### [facility] [address] [place] [address] USACalcium [Mass/Vol]8.3 mg/dLLow8.6-10.3FWyandot Memorial HospitalComment on above:Performed By: #### GLENDY, BMP #### [facility] [address] [place] [address] USAChloride [Moles/Vol]107 mmol/DIvptjm01-137IdxqibjgtNorwalk Memorial HospitalComment on above:Performed By: #### GLENDY, BMP #### [place] [address] USACO2 [Moles/Vol]20.2 mmol/LLow21.0-31.0[facility] HospitalComment on above:Performed By: #### GLENDY, BMP #### [facility] [address] [place] [address] USACreatinine [Mass/Vol]4.50 mg/dLHigh0.70-1.30[facility] HospitalComment on above:Performed By: #### GLENDY, BMP #### [place] [address] USACreatinine Clr Calc Kkrvofoq08.08NormalNorwalk Memorial HospitalComment on above:Result Comment: PERFORMED BY: [place] [address] PATHOLOGIST EMERGENCY PHYSICIAN SESAR VAUGHN M.D.Performed By: #### GLENDY, BMP #### [place] [address] USAGFR/1.73 sq M.predicted MDRD (S/P/Bld) [Vol rate/Area] 14.440 mL/min/{1.73_m2}NormalNorwalk Memorial HospitalComment on above: Performed By: #### GLENDY, BMP #### [facility] [address] [place] [id number] USAGlucose [Mass/Vol]119 mg/kRDysg78-322SnfkefrzlNorwalk Memorial HospitalComment on above:Result Comment: Random Glucose Reference Range is dependent on time and content of last meal. Glucose of more than 200 mg/dL in a nonstressed, ambulatory subject supports the diagnosis of Diabetes Mellitus. ADA recommended reference rangePerformed By: #### GLENDY, BMP #### [facility] [address] [place] [address] USAPotassium [Moles/Vol]4.0 mmol/LNormal3.5-5.1FWyandot Memorial HospitalComment on above:Performed By: #### GLENDY, BMP #### [facility] [address] [place] [address] USASodium [Moles/Vol]138 mmol/JWqwqmr923-761MpbiluedjNorwalk Memorial HospitalComment on above:Performed By: #### GLENDY, BMP #### [facility] [address] [place] [id number] USAUrea nitrogen [Mass/Vol]71 mg/dLHigh7-25Norwalk Memorial HospitalComment on above:Performed By: #### GLENDY, BMP #### [facility] [address] [place] [address] USABlood carbon dioxide, total measurement by calculation (moles/volume)Ordered By: Sohan Kellogg on 41-32-1485PY7 Calc (Bld) [Moles/Vol] 20 mmol/A39-80MndqqhavcNorwalk Memorial HospitalCT biopsyOrdered By: Sohan Kellogg on 14-88-1134Usdxokmhvt (Bld) [Volume fraction]28.0 %38.0-51.0[facility] HospitalCalcium [Mass/volume] in Serum or PlasmaOrdered By: Gopal Ochoa on 25-75-7149Mtgzcje [Mass/Vol]8.3 mg/dL8.6-10.3FWyandot Memorial HospitalCarbon dioxide, total [Moles/volume] in Serum or PlasmaOrdered By: Gopal Ochoa on 35-02-3140OS7 [Moles/Vol]20.2 mmol/L21.0-31.0[facility] HospitalChloride [Moles/volume] in Serum or PlasmaOrdered By: Gopal Ochoa on 84-91-7797Gudkipyq [Moles/Vol]107 mmol/K08-201OybruzfrfNorwalk Memorial Hospital Creatinine [Mass/volume] in Serum or PlasmaOrdered By: Gopal Ochoa on 05-28-2022 Creatinine [Mass/Vol]4.50 mg/dL0.70-1.30[facility] Erythrocyte distribution width Auto (RBC) [Ratio]Ordered By: Gopal Ochoa on 03-33-1875Hvevlkrfdvw distribution width (RBC) [Ratio]15.5 %12.0-14.8[facility] HospitalGlucose Glucometer (BldC) [Mass/Vol]Ordered By: Sohan Kellogg on 37-11-3534Ssjnqcj [Mass/Vol]122 mg/dLNorwalk Memorial Hospital Comment on above:Random Glucose Reference Range is dependent on time and content of last meal. Glucose of more than 200 mg/dL in a nonstressed, ambulatory subject supports the diagnosis of Diabetes Mellitus.Glucose [Mass/Vol]116 mg/dL 70-105Norwalk Memorial HospitalGlucose Poct Glucometerson 05-28-2022 Glucose [Mass/Vol]122 mg/dLNormToledo HospitalComment on above:Result Comment: Random Glucose Reference Range is dependent on time and content of last meal. Glucose of more than 200 mg/dL in a nonstressed, ambulatory subject supports the diagnosis of Diabetes Mellitus. PERFORMED BY: [place] [address] PATHOLOGIST EMERGENCY PHYSICIAN SESAR VAUGHN M.D.Performed By: #### RENAL, CBC #### [place] [address] USAGlucose [Mass/Vol]120 mg/dLNoMain Campus Medical CenterComment on above:Result Comment: Random Glucose Reference Range is dependent on time and content of last meal. Glucose of more than 200 mg/dL in a nonstressed, ambulatory subject supports the diagnosis of Diabetes Mellitus. PERFORMED BY: [place] [address] PATHOLOGIST EMERGENCY PHYSICIAN SESAR VAUGHN M.D.Performed By: #### GLENDY, BMP #### [facility] [address] [place] [address] USAGlucose [Mass/volume] in Serum or PlasmaOrdered By: Gopal Ochoa on 86-70-6029Tyeukis [Mass/Vol]119 mg/tC60-624MijfvjjdgNorwalk Memorial HospitalComment on above:ADA recommended reference rangeRandom Glucose Reference Range is dependent on time and content of last meal. Glucose of more than 200 mg/dL in a nonstressed, ambulatory subject supports the diagnosisof Diabetes Mellitus.Hematocrit Auto (Bld) [Volume fraction]Ordered By: Gopal Ochoa on 94-65-3533Ohwmzynzpp (Bld) [Volume fraction]28.8 %38.8-50.0[facility] HospitalHemoglobin Calc (Bld) [Mass/Vol]Ordered By: Sohan Kellogg on 12-37-0207Tmmoaanbxt (Bld) [Mass/Vol]9.5 g/dL12.0-17.0[facility] HospitalHemoglobin [Mass/volume] in BloodOrdered By: Gopal Ochoa on 05-28-2022 Hemoglobin (Bld) [Mass/Vol]9.5 g/dL13.0-17.0[facility] Hemogram CBC Without Diffon 91-96-4185Xbyklawsibl distribution width (RBC) [Ratio]15.5 %High12.0-14.8Norwalk Memorial HospitalComment on above: Performed By: #### GLENDY, BMP #### [facility] [address] [place] [address] USAHematocrit (Bld) [Volume fraction]28.8 %Low38.8-50.0 [facility] HospitalComment on above:Performed By: #### GLENDY, BMP #### [facility] [address] [place] [address] USAHemoglobin (Bld) [Mass/Vol]9.5 g/dLLow13.0-17.0Norwalk Memorial HospitalComment on above:Performed By: #### GLENDY, BMP #### [facility] [address] [place] [id number] USAMCH (RBC) [Entitic mass]27.1 pgLow27.5-35.2FWyandot Memorial HospitalComment on above:Performed By: #### GLENDY, BMP #### [facility] [address] [place] [address] USAMCV (RBC) [Entitic vol]81.6 fLLow83.5-101Norwalk Memorial HospitalComment on above:Performed By: #### GLENDY, BMP #### [facility] [address] [place] [address] USAMean Corpuscular HGB Conc33.2 g/fODrgqdd46.5-35.6FWyandot Memorial HospitalComment on above:Performed By: #### GLENDY, BMP #### [place] [address] USAPlatelet mean volume (Bld) [Entitic vol]8.5 fLNormal 6.6-10.1FWyandot Memorial HospitalComment on above:Result Comment: PERFORMED BY: [place] [address] PATHOLOGIST EMERGENCY PHYSICIAN SESAR VAUGHN M.D.Performed By: #### GLENDY, BMP #### [place] [address] USAPlatelets (Bld) [#/Vol]302 10*3/yBUsthxz627-500KmggdatbaNorwalk Memorial HospitalComment on above:Performed By: #### GLENDY, BMP #### [facility] [address] [place] [address] USARBC (Bld) [#/Vol]3.52 10*6/uLLow3.90-5.60Nor[facility] HospitalComment on above:Performed By: #### GLENDY, BMP #### [place] [address] USAWBC (Bld) [#/Vol]6.9 10*3/uLNormal4.1-10.5FWyandot Memorial HospitalComment on above:Performed By: #### GLENDY, BMP #### [facility] [address] [place] [address] USAISTAT ABGon 94-16-8771AR0 [Moles/Vol]20 mmol/ZVli93-87 [facility] HospitalComment on above:Performed By: #### RENAL, CBC #### [place] [address] USAGlucose [Mass/Vol]116 mg/sYDboj97-504TdwaqijgfNorwalk Memorial HospitalComment on above:Result Comment: PERFORMED BY: [place] [address] PATHOLOGIST EMERGENCY PHYSICIAN SESAR VAUGHN M.D.Performed By: #### RENAL, CBC #### [place] [address] USAHCO3 (Bld) [Moles/Vol]19.4 mmol/LLow22.0-28.0[facility] Memorial HospitalComment on above:Performed By: #### RENAL, CBC #### [place] [address] USAHematocrit (Bld) [Volume fraction]28.0 %Low38.0-51.0 [facility] HospitalComment on above:Performed By: #### RENAL, CBC #### [place] [address] USAHemoglobin (Bld) [Mass/Vol]9.5 g/dLLow12.0-17.0Norwalk Memorial HospitalComment on above:Performed By: #### RENAL, CBC #### [facility] [address] [place] [address] USAISTAT Base Excess-5 mmol/LLow-2 TO 3FWyandot Memorial HospitalComment on above:Performed By: #### RENAL, CBC #### [place] [address] USAISTAT Ionized Calcium1.22 mol/LNormal1.12-1.32Norwalk Memorial HospitalComment on above:Performed By: #### RENAL, CBC #### [address] [address] USAISTAT BTK995.8 mm[Hg]Mdy82-45MariaodzjNorwalk Memorial HospitalComment on above:Performed By: #### RENAL, CBC #### [facility] [address] [place] [address] USAISTAT Ph7.881Kine5.31-7.45Norwalk Memorial HospitalComment on above:Performed By: #### RENAL, CBC #### [facility] [address] [place] [address] USAISTAT PO243 mm[Hg]Jjc49-447ZmwpshdgfNorwalk Memorial HospitalComment on above:Performed By: #### RENAL, CBC #### [facility] [address] [place] [address] USAOxygen saturation in Blood82 %Anr82-58OdjukzsisNorwalk Memorial HospitalComment on above:Result Comment: Reference ranges reflect baseline specimens onlyPerformed By: #### RENAL, CBC #### [facility] [address] [place] [address] USAPotassium [Moles/Vol]4.0 mmol/LNormal3.5-4.9Norwalk Memorial HospitalComment on above:Performed By: #### RENAL, CBC #### [facility] [address] [place] [address] USASodium [Moles/Vol]141 mmol/CRbhohb247-917ZsmfssdqrNorwalk Memorial HospitalComment on above:Performed By: #### RENAL, CBC #### [facility] [address] [place] [address] USALaboratory - Chemistry and Chemistry - challengeOrdered By: Gopal Ochoa on 55-45-8529ONY/1.73 sq M.predicted MDRD (S/P/Bld) [Vol rate/Area]14.440 mL/min/{1.73_m2}Norwalk Memorial HospitalLeukocytes [#/volume] corrected for nucleated erythrocytes in Blood by Automated coun Ordered By: Gopal Ochoa on 59-39-3660RZH corrected for nucl RBC Auto (Bld) [#/Vol]6.9 10*3/uL4.1-10.5FWyandot Memorial HospitalMCH Auto (RBC) [Entitic mass]Ordered By: Gopal Ochoa on 55-75-1458UYE (RBC) [Entitic mass]27.1 pg27.5-35.2FWyandot Memorial HospitalMCHC Auto (RBC) [Mass/Vol]Ordered By: Gopal Ochoa on 47-83-4518RTNH (RBC) [Mass/Vol]33.2 g/dL32.5-35.6FWyandot Memorial HospitalMCV Auto (RBC) [Entitic vol]Ordered By: Gopal Ochoa on 86-26-2441ZOQ (RBC) [Entitic vol]81.6 fL83.5-101Nor[facility] HospitalMonocyte %Ordered By: Sohan Kellogg on 75-73-3811Iridgfmt %27.8 mm[Hg] 35-51Norwalk Memorial HospitalMonocyte %43 mm[Hg]80-105Norwalk [facility] HospitalNo Panel InformationOrdered By: Gopal Ochoa on 05-28-2022 Pharmacy Creatinine Clearance (Chem22.08[facility] Platelet mean volume Auto (Bld) [Entitic vol]Ordered By: Gopal Ochoa on 24-88-5237Ytnfxfqy mean volume (Bld) [Entitic vol]8.5 fL6.6-10.1FWyandot Memorial HospitalPlatelets Auto (Bld) [#/Vol]Ordered By: Gopal Ochoa on 65-44-7346Myytplohw (Bld) [#/Vol]302 10*3/oM197-146DnlooauwnNorwalk Memorial HospitalPotassium (Bld) [Moles/Vol]Ordered By: Sohan Kellogg on 05-28-2022 Potassium [Moles/Vol]4.0 mmol/L3.5-4.9[facility] HospitalPotassium [Moles/volume] in Serum or PlasmaOrdered By: Gopal Ochoa on 56-65-8002Jdkjrqylk [Moles/Vol]4.0 mmol/L3.5-5.1FWyandot Memorial HospitalRBC Auto (Bld) [#/Vol]Ordered By: Gopal Ochoa on 35-42-5823ECS (Bld) [#/Vol]3.52 10*6/uL 3.90-5.60[facility] Clermont Hospitalerum or plasma anion gap determinationOrdered By: Gopal Ochoa on 49-50-5609Blsht gap [Moles/Vol]14.8 mmol/L6.0-15.0[facility]erm[facility] Hospitalodium (Bld) [Moles/Vol]Ordered By: Sohan Kellogg on 80-70-0639Zttewt [Moles/Vol]141 mmol/U753-080ZnoaqppzgMercy Health Clermont Hospitalodium [Moles/volume] in Serum or PlasmaOrdered By: Gopal Ochoa on 49-57-0474Ooeniy [Moles/Vol]138 mmol/J897-841TabffhfyyNorwalk Memorial HospitalUrea nitrogen [Mass/volume] in Serum or PlasmaOrdered By: Gopal Ochoa on 68-55-5692Pmbh nitrogen [Mass/Vol]71 mg/dL7-25[facility] Whole blood bicarbonate measurementOrdered By: Sohan Kellogg on 33-43-1810CDD6 (Bld) [Moles/Vol]19.4 mmol/L22.0-28.0[facility] HospitalWhole blood ionized calcium measurement (moles/volume)Ordered By: Sohan Kellogg on 43-97-4952Fpjrzoo.ionized (Bld) [Moles/Vol]1220 mmol/L1.12-1.32[facility] HospitalWhole blood oxygen saturation measurementOrdered By: Sohan Kellogg on 72-12-6555Iziair saturation in Blood82 %95-98Norwalk Memorial HospitalComment on above:Reference ranges reflect baseline specimens only Whole blood pHOrdered By: Sohan Kellogg on 94-00-3124oD (Bld)7.451 Units 7.31-7.45[facility] HospitalC reactive protein [Mass/volume] in Serum or PlasmaOrdered By: Eddy Griggs on 46-09-4049FRL [Mass/Vol]6.3 mg/dL 0.0-0.4FWyandot Memorial HospitalC-Reactive Proteinon 56-01-4274U- Reactive Protein6.3 mg/dLHigh0.0-0.4FWyandot Memorial HospitalComment on above:Result Comment: PERFORMED BY: [facility] [place] [address] PATHOLOGIST EMERGENCY PHYSICIAN SESAR VAUGHN M.D.Performed By: #### CRP ####[facility] [facility] [address] USAAlbumin [Mass/volume] in Serum or Plasma Ordered By: Salvador Gavin on 06-12-1750Wwbddsc [Mass/Vol]1.7 g/dL3.2-5.5FWyandot Memorial HospitalBasophils Auto (Bld) [#/Vol]Ordered By: Salvador Gavin on 73-88-8217Uumkjkloe (Bld) [#/Vol]0.1 10*3/uL0.0-0.2FWyandot Memorial HospitalBasophils/100 WBC Auto (Bld)Ordered By: Salvador Gavin on 05-25-2022 Basophils/100 WBC (Bld)1.0 %.[facility] HospitalCalcium [Mass/volume] in Serum or PlasmaOrdered By: Salvador [facility] on 55-40-2292Auzwahm [Mass/Vol]7.8 mg/dL8.2-10.2FWyandot Memorial HospitalCarbon dioxide, total [Moles/volume] in Serum or PlasmaOrdered By: [facility] on 73-21-7694LE2 [Moles/Vol]21.0 mmol/L22.0-30.0[facility] HospitalChloride [Moles/volume] in Serum or PlasmaOrdered By: SalvadorSt. [facility] on 79-53-0326Izspvvvj [Moles/Vol]104 mmol/H99-700ZtnulbdppNorwalk Memorial HospitalComplete Blood Count Auto Diffon 52-74-8005Yfkuvbldt (Bld) [#/Vol]0.1 10*3/uLNormal0.0-0.2FWyandot Memorial HospitalComment on above:Result Comment: PERFORMED BY: [facility] [address] [place] [address] PATHOLOGIST EMERGENCY PHYSICIAN SESAR VAUGHN M.D.Performed By: #### GLULS #### Point of Care testing ,Basophils/100 WBC (Bld)1.0 %Normal.Norwalk [facility] HospitalComment on above:Performed By: #### GLULS #### Point of Care testing ,Eosinophils (Bld) [#/Vol]0.3 10*3/uLNormal0.0-0.45[facility] HospitalComment on above:Performed By: #### GLULS #### Point of Care testing ,Eosinophils/100 WBC (Bld)3.4 %Normal.Norwalk Memorial HospitalComment on above:Performed By: #### GLULS #### Point of Care testing ,Erythrocyte distribution width (RBC) [Ratio]15.0 %High12.0-14.8[facility] HospitalComment on above:Performed By: #### GLULS #### Point of Care testing ,Hematocrit (Bld) [Volume fraction]23.7 %Low38.8-50.0[facility] HospitalComment on above:Performed By: #### GLULS #### Point of Care testing ,Hemoglobin (Bld) [Mass/Vol]7.9 g/dLLow13.0-17.0[facility] HospitalComment on above:Performed By: #### GLULS #### Point of Care testing ,Lymphocytes (Bld) [#/Vol]0.7 10*3/uLLow1.00-4.8[facility] HospitalComment on above:Performed By: #### GLULS #### Point of Care testing ,Lymphocytes/100 WBC (Bld)9.2 %Normal.[facility] HospitalComment on above:Performed By: #### GLULS #### Point of Care testing ,MCH (RBC) [Entitic mass]27.4 pgLow27.5-35.2FWyandot Memorial Hospital Comment on above:Performed By: #### GLULS #### Point of Care testing ,MCV (RBC) [Entitic vol]81.7 fLLow83.5-101[facility] Comment on above:Performed By: #### GLULS #### Point of Care testing ,Mean Corpuscular HGB Conc33.6 g/iOXiwceb67.5-35.6FWyandot Memorial HospitalComment on above:Performed By: #### GLULS #### Point of Care testing ,Monocytes (Bld) [#/Vol]0.8 10*3/uLNormal0.0-0.8[facility] HospitalComment on above:Performed By: #### GLULS #### Point of Care testing ,Monocytes/100 WBC (Bld)10.5 %Normal.[facility] HospitalComment on above:Performed By: #### GLULS #### Point of Care testing ,Neutrophils (Bld) [#/Vol]5.8 10*3/uLNormal1.8-7.7FWyandot Memorial HospitalComment on above:Performed By: #### GLULS #### Point of Care testing ,Neutrophils/100 WBC (Bld)75.9 %Normal.[facility] HospitalComment on above:Performed By: #### GLULS #### Point of Care testing ,NRBC%0.0 /100{WBC}Normal0-0.5FWyandot Memorial HospitalComment on above: Performed By: #### GLULS #### Point of Care testing ,Platelet mean volume (Bld) [Entitic vol]8.6 fLNormal6.6-10.1FWyandot Memorial HospitalComment on above:Performed By: #### GLULS #### Point of Care testing ,Platelets (Bld) [#/Vol]191 10*3/yVZtoedb421-309PzugppjwwNorwalk Memorial HospitalComment on above:Performed By: #### GLULS #### Point of Care testing ,RBC (Bld) [#/Vol]2.90 10*6/uLLow3.90-5.60[facility] Comment on above:Performed By: #### GLULS #### Point of Care testing ,WBC (Bld) [#/Vol]7.7 10*3/uLNormal4.1-10.5FWyandot Memorial Hospital Comment on above:Performed By: #### GLULS #### Point of Care testing ,Creatinine and Glomerular filtration rate.predicted panel (S/P/Bld)Ordered By: Salvador Alonso on 14-69-7047Ohxitxstxi [Mass/Vol]4.55 mg/dL0.64-1.27Norwalk Memorial HospitalEosinophils Auto (Bld) [#/Vol]Ordered By: Salvador Alonso on 22-45-3976Wuwskqnvrtn (Bld) [#/Vol]0.3 10*3/uL0.0-0.45[facility] HospitalEosinophils/100 WBC Auto (Bld)Ordered By: Salvador Alonso on 75-18-1593Sikvlpluxad/100 WBC (Bld)3.4 %.[facility] Erythrocyte distribution width Auto (RBC) [Ratio]Ordered By: Salvador Alonso on 91-05-4225Vlwovflvpnq distribution width (RBC) [Ratio]15.0 %12.0-14.8[facility] HospitalEstimated glomerular filtration rate (GFR) non- AmericanOrdered By: Salvador Alonso on 60-65-5343PNW/1.73 sq M.predicted among non- blacks MDRD (S/P/Bld) [Vol rate/Area]13 mL/MinNorwalk Memorial Hospital Glucose Glucometer (BldC) [Mass/Vol]Ordered By: Scotty Kahn on 56-22-8805Uosfpcb [Mass/Vol]151 mg/dLNorwalk Memorial HospitalComment on above:Random Glucose Reference Range is dependent on time and content of last meal. Glucose of more than 200 mg/dL in a nonstressed, ambulatory subject supports the diagnosis of Diabetes Mellitus.Glucose Poct Glucometerson 45-46-2297Uzqryar4Kwr7: Cleaned MeterNoMain Campus Medical Center Comment on above:Result Comment: PERFORMED BY: [facility] [address] [place] [address] PATHOLOGIST EMERGENCY PHYSICIAN SESAR VAUGHN M.D.Performed By: #### GLULS #### Point of Care testing ,Glucose [Mass/Vol]151 mg/dLKing's Daughters Medical Center OhioComment on above:Result Comment: Random Glucose Reference Range is dependent on time and content of last meal. Glucose of more than 200 mg/dL in a nonstressed, ambulatory subject supports the diagnosis of Diabetes Mellitus.Performed By: #### GLULS #### Point of Care testing ,Ldefwhq2Gkk5: Cleaned MeterNoMain Campus Medical CenterComment on above:Result Comment: PERFORMED BY: [place] [address] PATHOLOGIST EMERGENCY PHYSICIAN SESAR VAUGHN M.D.Performed By: #### CBCNO, BMP #### [facility] [address] [place] [address] USAGlucose [Mass/Vol]101 mg/dLNoMain Campus Medical CenterComment on above:Result Comment: Random Glucose Reference Range is dependent on time and content of last meal. Glucose of more than 200 mg/dL in a nonstressed, ambulatory subject supports the diagnosis of Diabetes Mellitus.Performed By: #### CBCNO, BMP #### [place] [address] USAGlucose [Mass/volume] in Serum or PlasmaOrdered By: Salvador Alonso on 45-58-1563Voszqbw [Mass/Vol]94 mg/hR38-360CeybyeopgNorwalk Memorial HospitalComment on above:ADA recommended reference rangeRandom Glucose Reference Range is dependent on time and content of last meal. Glucose of more than 200 mg/dL in a nonstressed, ambulatory subject supports the diagnosisof Diabetes Mellitus.Hematocrit Auto (Bld) [Volume fraction]Ordered By: Salvador Alonso on 42-78-0929Hsvhwuiitk (Bld) [Volume fraction]23.7 %38.8-50.0[facility] HospitalHemoglobin [Mass/volume] in BloodOrdered By: Salvador Alonso on 98-74-5265Chregblbyi (Bld) [Mass/Vol]7.9 g/dL13.0-17.0[facility] HospitalLeukocytes [#/volume] corrected for nucleated erythrocytes in Blood by Automated counOrdered By: Salvador Alonso on 97-96-6839NHQ corrected for nucl RBC Auto (Bld) [#/Vol]7.7 10*3/uL4.1-10.5FWyandot Memorial Hospital Lymphocytes Auto (Bld) [#/Vol]Ordered By: Salvador Gavin on 95-20-5602Kuyebxcxiwn (Bld) [#/Vol]0.7 10*3/uL1.00-4.8[facility] HospitalLymphocytes/100 WBC Auto (Bld)Ordered By: Salvador Gavin on 90-55-1741Khbngasqgfd/100 WBC (Bld) 9.2 %.[facility] HospitalMCH Auto (RBC) [Entitic mass]Ordered By: Salvador Gavin on 02-42-8759ZWK (RBC) [Entitic mass]27.4 pg27.5-35.2FWyandot Memorial HospitalMCHC Auto (RBC) [Mass/Vol]Ordered By: Salvador Gavin on 24-26-0850CYIZ (RBC) [Mass/Vol]33.6 g/dL32.5-35.6FWyandot Memorial HospitalMCV Auto (RBC) [Entitic vol]Ordered By: Salvador Gavin on 33-96-7753AQE (RBC) [Entitic vol]81.7 fL83.5-101[facility] HospitalMonocytes Auto (Bld) [#/Vol]Ordered By: Salvador Gavin on 14-27-0716Ppmnbftyg (Bld) [#/Vol] 0.8 10*3/uL0.0-0.8[facility] HospitalMonocytes/100 WBC Auto (Bld) Ordered By: Salvador Gavin on 30-00-8855Iyrhjncpj/100 WBC (Bld)10.5 %.[facility] Memorial HospitalNeutrophils Auto (Bld) [#/Vol]Ordered By: Salvador Gavin on 47-34-2122Ssiiyzsrmqw (Bld) [#/Vol]5.8 10*3/uL1.8-7.7FWyandot Memorial HospitalNeutrophils/100 WBC Auto (Bld)Ordered By: Salvador Gavin on 05-25-2022 Neutrophils/100 WBC (Bld)75.9 %.[facility] HospitalNo Panel InformationOrdered By: Scotty Kahn on 91-40-2609Tbpirof Glucose Comment Glu2: cleaned meterNorwalk Memorial HospitalNo Panel InformationOrdered By: Salvador Alonso on 91-97-7223Pommgwbus GFR ()16 mL/MinNorwalk Memorial HospitalComment on above:GFR estimated reference range: According to KDOQI guidelines, <60 ml/min/1.73m2 is sufficient todiagnose a patient with chronic kidney disease.Pharmacy Creatinine Clearance (Chem21.99 [facility] HospitalNucleated erythrocytes [Presence] in Blood by Automated countOrdered By: Salvador Alonso on 48-34-7848Ahjmbarlb RBC Auto Ql (Bld) 0.0 /100{WBC}0-0.5FWyandot Memorial HospitalPhosphate [Mass/volume] in Serum or PlasmaOrdered By: Salvador Alonso on 76-51-0753Ojexsgxvw [Mass/Vol]4.1 mg/dL2.5-4.6FWyandot Memorial HospitalPlatelet mean volume Auto (Bld) [Entitic vol]Ordered By: Salvador Alonso on 23-47-2833Hthbkmfj mean volume (Bld) [Entitic vol]8.6 fL6.6-10.1FWyandot Memorial HospitalPlatelets Auto (Bld) [#/Vol]Ordered By: Salvador Alonso on 93-08-3552Rcknkcgkl (Bld) [#/Vol]191 10*3/uL 150-450Nor[facility] HospitalPotassium [Moles/volume] in Serum or PlasmaOrdered By: Salvador Alonso on 50-78-4399Eagwqadna [Moles/Vol]4.2 mmol/L 3.5-5.1FWyandot Memorial HospitalRBC Auto (Bld) [#/Vol]Ordered By: Salvador Alonso on 47-57-2058TJU (Bld) [#/Vol]2.90 10*6/uL3.90-5.60[facility] HospitalRenal Function Panelon 62-85-9204Fcwnaxz [Mass/Vol]1.7 g/dLLow 3.2-5.5FWyandot Memorial HospitalComment on above:Performed By: #### GLULS #### Point of Care testing ,Anion gap [Moles/Vol]13.2 mmol/LNormal6.0-15.0[facility] Comment on above:Performed By: #### GLULS #### Point of Care testing ,Calcium [Mass/Vol]7.8 mg/dLLow8.2-10.2FWyandot Memorial HospitalComment on above:Performed By: #### GLULS #### Point of Care testing ,Chloride [Moles/Vol]104 mmol/EJltlsz73-460ZvphgsfchNorwalk Memorial Hospital Comment on above:Performed By: #### GLULS #### Point of Care testing ,CO2 [Moles/Vol]21.0 mmol/LLow22.0-30.0[facility] HospitalComment on above:Performed By: #### GLULS #### Point of Care testing ,Creatinine [Mass/Vol]4.55 mg/dLHigh0.64-1.27[facility] Comment on above:Performed By: #### GLULS #### Point of Care testing ,Creatinine Clr Calc Mwfcmzse21.99NoMain Campus Medical CenterComment on above:Result Comment: PERFORMED BY: [facility] [address] [place] [address] PATHOLOGIST EMERGENCY PHYSICIAN SESAR VAUGHN M.D.Performed By: #### GLULS #### Point of Care testing ,Estimated GFR ( Leetdxe23DqgcfaNarmofxwuKing's Daughters Medical Center OhioComment on above:Result Comment: GFR estimated reference range: According to KDOQI guidelines, <60 ml/min/1.73m2 is sufficient to diagnose a patient with chronic kidney disease.Performed By: #### GLULS #### Point of Care testing ,Estimated GFR (Non- Ju21QfitisKucpusbcoKing's Daughters Medical Center OhioComment on above:Performed By: #### GLULS #### Point of Care testing ,Glucose [Mass/Vol]94 mg/sYDkegib47-402DgsdtynliNorwalk Memorial HospitalComment on above:Result Comment: Random Glucose Reference Range is dependent on time and content of last meal. Glucose of more than 200 mg/dL in a nonstressed, ambulatory subject supports the diagnosis of Diabetes Mellitus. ADA recommended reference rangePerformed By: #### GLULS #### Point of Care testing ,Phosphate [Mass/Vol]4.1 mg/dLNormal2.5-4.6FWyandot Memorial Hospital Comment on above:Performed By: #### GLULS #### Point of Care testing ,Potassium [Moles/Vol]4.2 mmol/LNormal3.5-5.1FWyandot Memorial Hospital Comment on above:Performed By: #### GLULS #### Point of Care testing ,Sodium [Moles/Vol]134 mmol/ONep730-212DkusbvptjNorwalk Memorial HospitalComment on above:Performed By: #### GLULS #### Point of Care testing ,Urea nitrogen [Mass/Vol]68 mg/dLHigh923[facility] Comment on above:Performed By: #### GLULS #### Point of Care testing ,Serum or plasma anion gap determinationOrdered By: Salvador [facility] on 05-25-2022 Anion gap [Moles/Vol]13.2 mmol/L6.0-15.0[facility]erm[facility] Hospitalodium [Moles/volume] in Serum or PlasmaOrdered By: [facility] on 15-96-2070Jcbkmu [Moles/Vol]134 mmol/M835-842IvoyqlpsdNorwalk Memorial HospitalUrea nitrogen [Mass/volume] in Serum or PlasmaOrdered By: [facility] on 86-10-0322Wwgv nitrogen [Mass/Vol]68 mg/dL9-[address] [place], [place] [address]WBC Auto (Bld) [#/Vol]Ordered By: Salvador Alonso on 52-39-2883VPA (Bld) [#/Vol]7.7 10*3/uL 4.1-10.5FWyandot Memorial HospitalComplete Blood Count Auto Diffon 90-94-9555Rfdgvbwdi (Bld) [#/Vol]0.1 10*3/uLNormal0.0-0.2FWyandot Memorial HospitalComment on above:Result Comment: PERFORMED BY: [place] [address] [place] [address] PATHOLOGIST EMERGENCY PHYSICIAN SESAR VAUGHN M.D.Performed By: #### CBCNO, BMP #### [facility] [address] [place] [address] USABasophils/100 WBC (Bld)1.4 %Normal.[facility]walk Memorial HospitalComment on above:Performed By: #### CBCNO, BMP #### [facility] [address] [place] [address] USAEosinophils (Bld) [#/Vol]0.2 10*3/uLNormal0.0-0.45 [facility] HospitalComment on above:Performed By: #### CBCNO, BMP #### [facility] [address] [place] [address] USAEosinophils/100 WBC (Bld)2.7 %Normal.[facility]walk Memorial HospitalComment on above:Performed By: #### CBCNO, BMP #### [place] [address] USAErythrocyte distribution width (RBC) [Ratio]15.0 %High 12.0-14.8[facility]walk [facility] HospitalComment on above:Performed By: #### CBCNO, BMP #### [facility] [address] [place] [address] USAHematocrit (Bld) [Volume fraction]24.2 %Low38.8-50.0 [facility] HospitalComment on above:Performed By: #### CBCNO, BMP #### [facility] [address] [place] [address] USAHemoglobin (Bld) [Mass/Vol]8.0 g/dLLow13.0-17.0[facility] HospitalComment on above:Performed By: #### CBCNO, BMP #### [facility] [address] [place] [id number] USALymphocytes (Bld) [#/Vol]0.8 10*3/uLLow1.00-4.8[facility] HospitalComment on above:Performed By: #### CBCNO, BMP #### [facility] [address] [place] [id number] USALymphocytes/100 WBC (Bld)11.4 %Normal.[facility]walk [facility] HospitalComment on above:Performed By: #### CBCNO, BMP #### [facility] [address] (RBC) [Entitic mass]27.2 pgLow27.5-35.2FWyandot Memorial HospitalComment on above:Performed By: #### CBCNO, BMP #### [facility] [address] [place], [place] [address]V (RBC) [Entitic vol]82.0 fLLow83.5-101[facility] HospitalComment on above:Performed By: #### CBCNO, BMP #### [place] [address] USAMean Corpuscular HGB Conc33.1 g/dLQtzwaf97.5-35.6FWyandot Memorial HospitalComment on above:Performed By: #### CBCNO, BMP #### [place] [address] USAMonocytes (Bld) [#/Vol]0.7 10*3/uLNormal0.0-0.8[facility] HospitalComment on above:Performed By: #### CBCNO, BMP #### [place] [address] USAMonocytes/100 WBC (Bld)9.3 %Normal.[facility] HospitalComment on above:Performed By: #### CBCNO, BMP #### [place] [address] USANeutrophils (Bld) [#/Vol]5.4 10*3/uLNormal1.8-7.7FWyandot Memorial HospitalComment on above:Performed By: #### CBCNO, BMP #### [place] [address] USANeutrophils/100 WBC (Bld)75.2 %Normal.[facility] HospitalComment on above:Performed By: #### CBCNO, BMP #### [place] [address] USANRBC%0.1 /100{WBC}Normal0-0.5FWyandot Memorial HospitalComment on above:Performed By: #### GLENDY, BMP #### [place] [address] USAPlatelet mean volume (Bld) [Entitic vol]8.3 fLNormal 6.6-10.1FWyandot Memorial HospitalComment on above:Performed By: #### GLENDY, BMP #### [place] [address] USAPlatelets (Bld) [#/Vol]170 10*3/rTPhieak164-335SwwwsnsdgNorwalk Memorial HospitalComment on above:Performed By: #### GLENDY, BMP #### [place] [address] USARBC (Bld) [#/Vol]2.95 10*6/uLLow3.90-5.60[facility] HospitalComment on above:Performed By: #### GLENDY, BMP #### [place] [address] USAWBC (Bld) [#/Vol]7.1 10*3/uLNormal4.1-10.5FWyandot Memorial HospitalComment on above:Performed By: #### GLENDY, BMP #### [place] [address] USAGlucose Poct Glucometerson 97-55-5762Fiojehs9Zcd6: Cleaned MeterNoMain Campus Medical CenterComment on above:Result Comment: PERFORMED BY: [place] [address] PATHOLOGIST EMERGENCY PHYSICIAN SESAR VAUGHN M.D.Performed By: #### GLULS ####Point of Care testing,Glucose [Mass/Vol]150 mg/dLKing's Daughters Medical Center OhioComment on above: Result Comment: Random Glucose Reference Range is dependent on time and content of last meal. Glucose of more than 200 mg/dL in a nonstressed, ambulatory subject supports the diagnosis of Diabetes Mellitus.Performed By: #### GLULS ####Point of Care testing,Glucose [Mass/Vol]131 mg/dLNoMain Campus Medical CenterComment on above: Result Comment: Random Glucose Reference Range is dependent on time and content of last meal. Glucose of more than 200 mg/dL in a nonstressed, ambulatory subject supports the diagnosis of Diabetes Mellitus. PERFORMED BY: [place] [address] PATHOLOGIST EMERGENCY PHYSICIAN SESAR VAUGHN M.D.Performed By: #### GLULS ####Point of Care testing,Glucose [Mass/Vol]147 mg/dLNoMain Campus Medical CenterComment on above: Result Comment: Random Glucose Reference Range is dependent on time and content of last meal. Glucose of more than 200 mg/dL in a nonstressed, ambulatory subject supports the diagnosis of Diabetes Mellitus. PERFORMED BY: [place] [address] PATHOLOGIST EMERGENCY PHYSICIAN SESAR VAUGHN M.D.Performed By: #### GLULS #### Point of Care testing ,Glucose [Mass/Vol]101 mg/dLNoMain Campus Medical CenterComment on above:Result Comment: Random Glucose Reference Range is dependent on time and content of last meal. Glucose of more than 200 mg/dL in a nonstressed, ambulatory subject supports the diagnosis of Diabetes Mellitus. PERFORMED BY: [place] [address] PATHOLOGIST EMERGENCY PHYSICIAN SESAR VAUGHN M.D.Performed By: #### GLULS ####Point of Care testing,Renal Function Panelon [id number] [Mass/Vol]1.6 g/dLLow3.2-5.5FWyandot Memorial HospitalComment on above:Performed By: #### CBCNO, BMP #### [place] [address] USAAnion gap [Moles/Vol]13.6 mmol/LNormal6.0-15.0[facility]walk [facility] HospitalComment on above:Performed By: #### CBCNO, BMP #### [facility] [address] [place] [address] USACalcium [Mass/Vol]7.5 mg/dLLow8.2-10.2FWyandot Memorial HospitalComment on above:Performed By: #### GLENDY, BMP #### [facility] [address] [place] [address] USAChloride [Moles/Vol]104 mmol/BJadmma43-037BvekvddtfNorwalk Memorial HospitalComment on above:Performed By: #### GLENDY, BMP #### [facility] [address] [place] [address] USACO2 [Moles/Vol]19.6 mmol/LLow22.0-30.0[facility]walk Memorial HospitalComment on above:Performed By: #### GLENDY, BMP #### [place] [address] USACreatinine [Mass/Vol]4.62 mg/dLHigh0.64-1.27[facility]walk Memorial HospitalComment on above:Performed By: #### GLENDY, BMP #### [facility] [address] [place] [address] USACreatinine Clr Calc Ypwfvwtr22.46NoMain Campus Medical CenterComment on above:Result Comment: PERFORMED BY: [place] [address] PATHOLOGIST EMERGENCY PHYSICIAN SESAR VAUGHN M.D.Performed By: #### GLENDY, BMP #### [facility] [address] [place] [address] USAEstimated GFR ( Zhmxofe23UvngovVftfetdsm[address] [place], [place] [address]Comment on above:Result Comment: GFR estimated reference range: According to KDOQI guidelines, <60 ml/min/1.73m2 is sufficient to diagnose a patient with chronic kidney disease.Performed By: #### GLENDY, BMP #### [facility] [address] [place] [id number] USAEstimated GFR (Non- Av39XslftgVqoglpdjr[address] [place], [place] [address]Comment on above:Performed By: #### GLENDY, BMP #### [address] [place] [address] USAGlucose [Mass/Vol]87 mg/dLNufbbp49-867GqlwveqshNorwalk Memorial HospitalComment on above:Result Comment: Random Glucose Reference Range is dependent on time and content of last meal. Glucose of more than 200 mg/dL in a nonstressed, ambulatory subject supports the diagnosis of Diabetes Mellitus. ADA recommended reference rangePerformed By: #### GLENDY, BMP #### [facility] [address] [place] [address] USAPhosphate [Mass/Vol]4.3 mg/dLNormal2.5-4.6FWyandot Memorial HospitalComment on above:Performed By: #### GLENDY, BMP #### [facility] [address] [place] [address] USAPotassium [Moles/Vol]4.2 mmol/LNormal3.5-5.1FWyandot Memorial HospitalComment on above:Performed By: #### GLENDY, BMP #### [facility] [address] [place] [address] USASodium [Moles/Vol]133 mmol/TRow259-997PtxmmseolNorwalk Memorial HospitalComment on above:Performed By: #### GLENDY, BMP #### [facility] [address] [place] [address] USAUrea nitrogen [Mass/Vol]72 mg/dLHigh9-23Norwalk Memorial HospitalComment on above:Performed By: #### GLENDY, BMP #### [facility] [address] [place] [address] USAVancomycin [Mass/volume] in Serum or PlasmaOrdered By: Salvador Gavin on 87-46-1591Ounjunhmjz [Mass/Vol]18.0 ug/mL5.0-20.0[facility]walk Memorial HospitalComment on above:Last dose: -Vancomycin,Randomon 23-79-5787Cvumghylqk,Ispdnh17.0 ug/mLNormal5.0-20.0[facility]walk [facility] HospitalComment on above:Order Comment: Date of last dose?: 20220522 Time of last dose?: 1129Result Comment: Last dose: - PERFORMED BY: [place] [address] PATHOLOGIST EMERGENCY PHYSICIAN SESAR VAUGHN M.D.Performed By: #### GLULS #### Point of Care testing ,Complete Blood Count Auto Diffon [id number] (Bld) [#/Vol]0.1 10*3/uL Normal0.0-0.2FWyandot Memorial HospitalComment on above:Result Comment: PERFORMED BY: [place] [address] PATHOLOGIST EMERGENCY PHYSICIAN SESAR VAUGHN M.D.Performed By: #### CBCNO, BMP #### [place] [address] USABasophils/100 WBC (Bld)1.5 %Normal.[facility] Memorial HospitalComment on above:Performed By: #### CBCNO, BMP #### [place] [address] USAEosinophils (Bld) [#/Vol]0.2 10*3/uLNormal0.0-0.45 [facility] HospitalComment on above:Performed By: #### CBCNO, BMP #### [place] [address] USAEosinophils/100 WBC (Bld)2.2 %Normal.[facility] HospitalComment on above:Performed By: #### CBCNO, BMP #### [place] [address] USAErythrocyte distribution width (RBC) [Ratio]14.9 %High 12.0-14.8[facility] HospitalComment on above:Performed By: #### CBCNO, BMP #### [place] [address] USAHematocrit (Bld) [Volume fraction]24.7 %Low38.8-50.0 [facility] HospitalComment on above:Performed By: #### CBCNO, BMP #### [place] [address] USAHemoglobin (Bld) [Mass/Vol]8.3 g/dLLow13.0-17.0[facility] HospitalComment on above:Performed By: #### CBCNO, BMP #### [facility] [address] [place] [address] USALymphocytes (Bld) [#/Vol]0.8 10*3/uLLow1.00-4.8[facility] HospitalComment on above:Performed By: #### CBCNO, BMP #### [facility] [address] [place] [address] USALymphocytes/100 WBC (Bld)10.5 %Normal.[facility] HospitalComment on above:Performed By: #### CBCNO, BMP #### [facility] [address] [place] [address] USAMCH (RBC) [Entitic mass]27.5 kxBmiwak39.5-35.2FWyandot Memorial HospitalComment on above:Performed By: #### CBCNO, BMP #### [place] [address] USAMCV (RBC) [Entitic vol]81.5 fLLow83.5-101[facility] HospitalComment on above:Performed By: #### CBCNO, BMP #### [facility] [address] [place] [address] USAMean Corpuscular HGB Conc33.7 g/wIXahona61.5-35.6FWyandot Memorial HospitalComment on above:Performed By: #### CBCNO, BMP #### [facility] [address] [place] [address] USAMonocytes (Bld) [#/Vol]0.7 10*3/uLNormal0.0-0.8[facility] HospitalComment on above:Performed By: #### CBCNO, BMP #### [facility] [address] [place] [id number] USAMonocytes/100 WBC (Bld)10.0 %Normal.[facility] HospitalComment on above:Performed By: #### CBCNO, BMP #### [facility] [address] [place] [address] USANeutrophils (Bld) [#/Vol]5.6 10*3/uLNormal1.8-7.7FWyandot Memorial HospitalComment on above:Performed By: #### CBCNO, BMP #### [facility] [address] [place] [id number] USANeutrophils/100 WBC (Bld)75.8 %Normal.[facility] HospitalComment on above:Performed By: #### CBCNO, BMP #### [facility] [address] [place] [address] USANRBC%0.1 /100{WBC}Normal0-0.5FWyandot Memorial HospitalComment on above:Performed By: #### GLENDY, BMP #### [facility] [address] [place] [address] USAPlatelet mean volume (Bld) [Entitic vol]8.8 fLNormal 6.6-10.1FWyandot Memorial HospitalComment on above:Performed By: #### CBCNO, BMP #### [place] [address] USAPlatelets (Bld) [#/Vol]171 10*3/tXHgaluz585-216OwtyahjeqNorwalk Memorial HospitalComment on above:Performed By: #### CBCNO, BMP #### [facility] [address] [place] [address] USARBC (Bld) [#/Vol]3.03 10*6/uLLow3.90-5.60[facility] HospitalComment on above:Performed By: #### CBCNO, BMP #### [facility] [address] [place] [address] USAWBC (Bld) [#/Vol]7.4 10*3/uLNormal4.1-10.5FWyandot Memorial HospitalComment on above:Performed By: #### CBCNO, BMP #### [place] [address] USAGlucose Poct Glucometerson 18-88-5779Wmamqbk [Mass/Vol]125 mg/dLNoMain Campus Medical CenterComment on above:Result Comment: Random Glucose Reference Range is dependent on time and content of last meal. Glucose of more than 200 mg/dL in a nonstressed, ambulatory subject supports the diagnosis of Diabetes Mellitus. PERFORMED BY: [place] [address] PATHOLOGIST EMERGENCY PHYSICIAN SESAR VAUGHN M.D.Performed By: #### GLULS ####Point of Care testing,Glucose [Mass/Vol]129 mg/dLNoMain Campus Medical CenterComment on above: Result Comment: Random Glucose Reference Range is dependent on time and content of last meal. Glucose of more than 200 mg/dL in a nonstressed, ambulatory subject supports the diagnosis of Diabetes Mellitus. PERFORMED BY: [place] [address] PATHOLOGIST EMERGENCY PHYSICIAN SESAR VAUGHN M.D.Performed By: #### GLULS ####Point of Care testing,Glucose [Mass/Vol]164 mg/dLNoMain Campus Medical CenterComment on above: Result Comment: Random Glucose Reference Range is dependent on time and content of last meal. Glucose of more than 200 mg/dL in a nonstressed, ambulatory subject supports the diagnosis of Diabetes Mellitus. PERFORMED BY: [place] [address] PATHOLOGIST EMERGENCY PHYSICIAN SESAR VAUGHN M.D.Performed By: #### CRP #### [facility] [address] [place] [address] USARenal Function Panelon [id number] [Mass/Vol]1.7 g/dLLow3.2-5.5FWyandot Memorial HospitalComment on above:Performed By: #### CBCNO, BMP #### [facility] [address] [place] [address] USAAnion gap [Moles/Vol]13.0 mmol/LNormal6.0-15.0[facility] HospitalComment on above:Performed By: #### CBCNO, BMP #### [facility] [address] [place] [address] USACalcium [Mass/Vol]7.5 mg/dLLow8.2-10.2FWyandot Memorial HospitalComment on above:Performed By: #### SANDOVALNO, BMP #### [facility] [address] [place] [address] USAChloride [Moles/Vol]103 mmol/GKojxhs38-774MqnjuzigiNorwalk Memorial HospitalComment on above:Performed By: #### CBCNO, BMP #### [facility] [address] [place] [address] USACO2 [Moles/Vol]20.1 mmol/LLow22.0-30.0[facility] HospitalComment on above:Performed By: #### GLENDY, BMP #### [facility] [address] [place] [address] USACreatinine [Mass/Vol]4.57 mg/dLHigh0.64-1.27[facility] HospitalComment on above:Performed By: #### GLENDY, BMP #### [facility] [address] [place] [address] USACreatinine Clr Calc Uxcptytg54.49NoMain Campus Medical CenterComment on above:Result Comment: PERFORMED BY: [place] [address] PATHOLOGIST EMERGENCY PHYSICIAN SESAR VAUGHN M.D.Performed By: #### GLENDY, BMP #### [facility] [address] [place] [address] USAEstimated GFR ( Xweljwe48CbehsnGdyvtgrgr[address] [place], [place] [address]Comment on above:Result Comment: GFR estimated reference range: According to KDOQI guidelines, <60 ml/min/1.73m2 is sufficient to diagnose a patient with chronic kidney disease.Performed By: #### CBCNO, BMP #### [facility] [address] [place] [id number] USAEstimated GFR (Non- Eb08XscevyOchnmqhofKing's Daughters Medical Center OhioComment on above:Performed By: #### GLENDY, BMP #### [place] [address] USAGlucose [Mass/Vol]93 mg/iXGqghkd29-441GulmweeqyNorwalk Memorial HospitalComment on above:Result Comment: Random Glucose Reference Range is dependent on time and content of last meal. Glucose of more than 200 mg/dL in a nonstressed, ambulatory subject supports the diagnosis of Diabetes Mellitus. ADA recommended reference rangePerformed By: #### CBCNO, BMP #### [place] [address] USAPhosphate [Mass/Vol]4.6 mg/dLNormal2.5-4.6FWyandot Memorial HospitalComment on above:Performed By: #### CBCNO, BMP #### [place] [address] USAPotassium [Moles/Vol]4.1 mmol/LNormal3.5-5.1FWyandot Memorial HospitalComment on above:Performed By: #### CBCNO, BMP #### [place] [address] USASodium [Moles/Vol]132 mmol/YFlj667-681TsilqvykxNorwalk Memorial HospitalComment on above:Performed By: #### CBCNO, BMP #### [place] [address] USAUrea nitrogen [Mass/Vol]69 mg/dLHigh9-23Nor[facility] HospitalComment on above:Performed By: #### CBCNO, BMP #### [place] [address] USAComplete Blood Count Auto Diffon 56-90-4249Ojcqormmn (Bld) [#/Vol]0.1 10*3/uLNormal0.0-0.2FWyandot Memorial HospitalComment on above:Result Comment: PERFORMED BY: [place] [address] PATHOLOGIST EMERGENCY PHYSICIAN SESAR VAUGHN M.D.Performed By: #### RENAL, CBC #### [place] [address] USABasophils/100 WBC (Bld)0.6 %Normal.[facility] HospitalComment on above:Performed By: #### RENAL, CBC #### [place] [address] USAEosinophils (Bld) [#/Vol]0.1 10*3/uLNormal0.0-0.45 [facility] HospitalComment on above:Performed By: #### RENAL, CBC #### [place] [address] USAEosinophils/100 WBC (Bld)0.8 %Normal.[facility] HospitalComment on above:Performed By: #### RENAL, CBC #### [place] [address] USAErythrocyte distribution width (RBC) [Ratio]15.4 %High 12.0-14.8[facility] HospitalComment on above:Performed By: #### RENAL, CBC #### [place] [address] USAHematocrit (Bld) [Volume fraction]25.9 %Low38.8-50.0 [facility] HospitalComment on above:Performed By: #### RENAL, CBC #### [place] [address] USAHemoglobin (Bld) [Mass/Vol]8.6 g/dLLow13.0-17.0[facility] HospitalComment on above:Performed By: #### RENAL, CBC #### [place] [address] USALymphocytes (Bld) [#/Vol]0.6 10*3/uLLow1.00-4.8[facility] HospitalComment on above:Performed By: #### RENAL, CBC #### [place] [address] USALymphocytes/100 WBC (Bld)7.4 %Normal.[facility] HospitalComment on above:Performed By: #### RENAL, CBC #### [address] [place] [address] USAH (RBC) [Entitic mass]27.3 pgLow27.5-35.2FWyandot Memorial HospitalComment on above:Performed By: #### RENAL, CBC #### [facility] [address] [place] [address] USAMCV (RBC) [Entitic vol]81.7 fLLow83.5-101[facility] HospitalComment on above:Performed By: #### RENAL, CBC #### [facility] [address] [place] [address] USAMean Corpuscular HGB Conc33.4 g/dMSljare39.5-35.6FWyandot Memorial HospitalComment on above:Performed By: #### RENAL, CBC #### [place] [address] USAMonocytes (Bld) [#/Vol]0.7 10*3/uLNormal0.0-0.8[facility] HospitalComment on above:Performed By: #### RENAL, CBC #### [facility] [address] [place] [address] USAMonocytes/100 WBC (Bld)7.6 %Normal.[facility] HospitalComment on above:Performed By: #### RENAL, CBC #### [place] [address] USANeutrophils (Bld) [#/Vol]7.3 10*3/uLNormal1.8-7.7FWyandot Memorial HospitalComment on above:Performed By: #### RENAL, CBC #### [place] [address] USANeutrophils/100 WBC (Bld)83.6 %Normal.[facility] HospitalComment on above:Performed By: #### RENAL, CBC #### [place] [address] USANRBC%0.0 /100{WBC}Normal0-0.5FWyandot Memorial HospitalComment on above:Performed By: #### RENAL, CBC #### [address] [place] [address] USAPlatelet mean volume (Bld) [Entitic vol]9.3 fLNormal 6.6-10.1FWyandot Memorial HospitalComment on above:Performed By: #### RENAL, CBC #### [facility] [address] [place] [address] USAPlatelets (Bld) [#/Vol]174 10*3/tOHoobzh338-807IddoxgegnNorwalk Memorial HospitalComment on above:Performed By: #### RENAL, CBC #### [facility] [address] [place] [address] USARBC (Bld) [#/Vol]3.17 10*6/uLLow3.90-5.60[facility] HospitalComment on above:Performed By: #### RENAL, CBC #### [facility] [address] [place] [address] USAWBC (Bld) [#/Vol]8.7 10*3/uLNormal4.1-10.5FWyandot Memorial HospitalComment on above:Performed By: #### RENAL, CBC #### [place] [address] USAGlucose Poct Glucometerson 94-59-4137Cfevgsz [Mass/Vol]157 mg/dLNoMain Campus Medical CenterComment on above:Result Comment: Random Glucose Reference Range is dependent on time and content of last meal. Glucose of more than 200 mg/dL in a nonstressed, ambulatory subject supports the diagnosis of Diabetes Mellitus. PERFORMED BY: [place] [address] PATHOLOGIST EMERGENCY PHYSICIAN SESAR VAUGHN M.D.Performed By: #### CRP #### [place] [address] USAGlucose [Mass/Vol]164 mg/dLKing's Daughters Medical Center OhioComment on above:Result Comment: Random Glucose Reference Range is dependent on time and content of last meal. Glucose of more than 200 mg/dL in a nonstressed, ambulatory subject supports the diagnosis of Diabetes Mellitus. PERFORMED BY: [place] [address] PATHOLOGIST EMERGENCY PHYSICIAN SESAR VAUGHN M.D.Performed By: #### GLULS #### Point of Care testing ,Glucose [Mass/Vol]126 mg/dLKing's Daughters Medical Center OhioComment on above:Result Comment: Random Glucose Reference Range is dependent on time and content of last meal. Glucose of more than 200 mg/dL in a nonstressed, ambulatory subject supports the diagnosis of Diabetes Mellitus. PERFORMED BY: [place] [address] PATHOLOGIST EMERGENCY PHYSICIAN SESAR VAUGHN M.D.Performed By: #### CBCNO, BMP #### [place] [address] QLUQlxcdwd7Smw3: Cleaned MeterNoMain Campus Medical CenterComment on above:Result Comment: PERFORMED BY: [place] [address] PATHOLOGIST EMERGENCY PHYSICIAN SESAR VAUGHN M.D.Performed By: #### GLULS #### Point of Care testing ,Glucose [Mass/Vol]84 mg/dLKing's Daughters Medical Center OhioComment on above:Result Comment: Random Glucose Reference Range is dependent on time and content of last meal. Glucose of more than 200 mg/dL in a nonstressed, ambulatory subject supports the diagnosis of Diabetes Mellitus.Performed By: #### GLULS #### Point of Care testing ,Renal Function Panelon 97-86-2075Zdjjztn [Mass/Vol]1.7 g/dLLow3.2-5.5FWyandot Memorial HospitalComment on above:Performed By: #### RENAL, CBC #### [facility] [address] [place] [address] USAAnion gap [Moles/Vol]12.4 mmol/LNormal6.0-15.0[facility] HospitalComment on above:Performed By: #### RENAL, CBC #### [facility] [address] [place] [address] USACalcium [Mass/Vol]7.5 mg/dLLow8.2-10.2FWyandot Memorial HospitalComment on above:Performed By: #### RENAL, CBC #### [facility] [address] [place] [address] USAChloride [Moles/Vol]103 mmol/GWmntkz60-406XpvkvofqnNorwalk Memorial HospitalComment on above:Performed By: #### RENAL, CBC #### [facility] [address] [place] [address] USACO2 [Moles/Vol]19.9 mmol/LLow22.0-30.0[facility] HospitalComment on above:Performed By: #### RENAL, CBC #### [place] [address] USACreatinine [Mass/Vol]4.75 mg/dLHigh0.64-1.27[facility] HospitalComment on above:Performed By: #### RENAL, CBC #### [place] [address] USACreatinine Clr Calc Seizfgnp63.48NoMain Campus Medical CenterComment on above:Result Comment: PERFORMED BY: [place] [address] PATHOLOGIST EMERGENCY PHYSICIAN SESAR VAUGHN M.D.Performed By: #### RENAL, CBC #### [place] [address] USAEstimated GFR ( Lvciezg35OtfwhgJkoozgqktKing's Daughters Medical Center OhioComment on above:Result Comment: GFR estimated reference range: According to KDOQI guidelines, <60 ml/min/1.73m2 is sufficient to diagnose a patient with chronic kidney disease.Performed By: #### RENAL, CBC #### [facility] [address] [place] [address] USAEstimated GFR (Non- Qs71BvpjqkBzlzizjjoKing's Daughters Medical Center OhioComment on above:Performed By: #### RENAL, CBC #### [place] [address] USAGlucose [Mass/Vol]78 mg/cNNmshoi96-253NairdewlwNorwalk Memorial HospitalComment on above:Result Comment: Random Glucose Reference Range is dependent on time and content of last meal. Glucose of more than 200 mg/dL in a nonstressed, ambulatory subject supports the diagnosis of Diabetes Mellitus. ADA recommended reference rangePerformed By: #### RENAL, CBC #### [facility] [address] [place] [address] USAPhosphate [Mass/Vol]4.5 mg/dLNormal2.5-4.6FWyandot Memorial HospitalComment on above:Performed By: #### RENAL, CBC #### [facility] [address] [place] [address] USAPotassium [Moles/Vol]4.3 mmol/LNormal3.5-5.1FWyandot Memorial HospitalComment on above:Performed By: #### RENAL, CBC #### [facility] [address] [place] [address] USASodium [Moles/Vol]131 mmol/IWqi147-995ItwymuihqNorwalk Memorial HospitalComment on above:Performed By: #### RENAL, CBC #### [facility] [address] [place] [address] USAUrea nitrogen [Mass/Vol]69 mg/dLHigh9-23Nor[facility] HospitalComment on above:Performed By: #### RENAL, CBC #### [facility] [address] [place] [address] USAVancomycin,Randomon 51-10-6815Pkbxqgqusy,Ttzrgr77.1 ug/mL Normal5.0-20.0[facility] HospitalComment on above:Order Comment: Date of last dose?: 20220520 Time of last dose?: 1700Result Comment: Last dose: - PERFORMED BY: [place] [address] PATHOLOGIST EMERGENCY PHYSICIAN SESAR VAUGHN M.D.Performed By: #### CRP #### [place] [address] USAABO/Rh Retypeon 39-77-8240UYD/RH Recheck ResultPositive NormalNorwalk Memorial HospitalComment on above:Result Comment: PERFORMED BY: [place] [id number] PATHOLOGIST EMERGENCY PHYSICIAN SESAR VAUGHN M.D.Aerobic Cultureon 36-25-3567Bzvuxpa CultureNo Growth 2 Days ORGANISM: Bacteroides fragilis (O:BACFRA) Comments Sent to [facility] for Sensitivity Testing Quantity of Growth Light Growth See report. Scanned copy available in EMR. Gram Stain Result Rare Gram Negative Bacilli Rare White Blood Cells PERFORMED BY: [place] [id number] PATHOLOGIST EMERGENCY PHYSICIAN SESAR VAUGHN M.D.NormalNorwalk Memorial HospitalComment on above: Performed By: #### GLULS #### Point of Care testing ,Aerobic cultureOrdered By: PHILLIP Luis on 92-45-8817Ssjlouir identified Aer cx Nom (Unsp spec)No Growth 2 DaysNorwalk Memorial HospitalBacteria identified Aer cx Nom (Unsp spec)No Growth 2 DaysNorwalk Memorial HospitalBacteria identified Anaer cx Nom (Unsp spec)Ordered By: Imelda Luis on 30-27-3202Eipwauusr CultureBacteroides fragilisNorwalk Memorial HospitalBacterial susceptibility panel MARCELO (Isol)on 05-21-2022 Microorganism identified Cx Nom (Unsp spec)[id number]ng Health Greene MemorialComsturgis hospital on above:Order Comment: Specimen Type: MICROBIAL ISOLATEOrdering Facility: Norwalk Memorial HospitalAddress: [address] [place] [id number] Comment: Bacteroides fragilis Identification performed by client. Bacteroides spp. are intrinsically resistant to ampicillin, penicillin, and aminoglycosides.Performed By: #### 62474-6, 44825-9 ####[facility] LABCLIA [id number] [address] [address] [place] STATES OF AMERICABacterial susceptibility panel Strip (Isol)on 05-21-2022 Ampicillin+Sulbactam [Susc]8SusceptibleSusceptible <=8 , Intermediate >8 , Resistant >16[facility] MemorialComsturgis hospital on above:Order Comment: Ordering Facility: [facility] Address: [address] [place], [place] [id number] By: #### 00069-3, 71101-3 ####[facility] LABCLIA [id number] [place] [address] [place] AMERICAErtapenem MARCELO [Susc]2SusceptibleSusceptible <=4 , Intermediate >4 , Resistant >8CLake County Memorial Hospital - WestComment on above:Order Comment: Ordering Facility: [facility] Address: [address] [place], [place] [address]Performed By: #### 92391-5, 27399-0 ####[facility] LABCLIA [id number] [place] [address] [place] OF AMERICAmetroNIDAZOLE [Susc]0.064SusceptibleSusceptible <=8 , Intermediate >8 , Resistant >16[facility] MemorialComment on above:Order Comment: Ordering Facility: [facility] Address: [address] [place], [place] [address]Performed By: #### 25017-8, 30411-2 ####[facility] LABCLIA [id number] [place] [address] [place] OF AMERICACT biopsyOrdered By: Cristobal Butts on 20-71-3128Zrzcatnarcg [Mass/Vol]74 mg/yA287-880OqhjwblbwNorwalk Memorial HospitalComplete Blood Count Auto Diffon 96-75-0795Vzolotdja (Bld) [#/Vol]0.0 10*3/uLNormal0.0-0.2FWyandot Memorial HospitalComment on above:Result Comment: PERFORMED BY: [address] [place] [address] PATHOLOGIST EMERGENCY PHYSICIAN SESAR VAUGHN M.D.Performed By: #### CBCNO, BMP #### [place] [address] USABasophils/100 WBC (Bld)0.4 %Normal.Norwalk Memorial HospitalComment on above:Performed By: #### CBCNO, BMP #### [place] [address] USAEosinophils (Bld) [#/Vol]0.1 10*3/uLNormal0.0-0.45 Norwalk Memorial HospitalComment on above:Performed By: #### CBCNO, BMP #### [place] [address] USAEosinophils/100 WBC (Bld)0.8 %Normal.Norwalk Memorial HospitalComment on above:Performed By: #### CBCSHANTANU, BMP #### [place] [address] USAErythrocyte distribution width (RBC) [Ratio]15.1 %High 12.0-14.8Norwalk Memorial HospitalComment on above:Performed By: #### CBCSHANTANU, BMP #### [place] [address] USAHematocrit (Bld) [Volume fraction]23.5 %Low38.8-50.0 [facility] Memorial HospitalComment on above:Performed By: #### CBCSHANTANU, BMP #### [place] [address] USAHemoglobin (Bld) [Mass/Vol]7.7 g/dLLow13.0-17.0Norwalk Memorial HospitalComment on above:Performed By: #### CBCNO, BMP #### [place] [address] USALymphocytes (Bld) [#/Vol]0.5 10*3/uLLow1.00-4.8Nor[facility] Memorial HospitalComment on above:Performed By: #### CBCNO, BMP #### [place] [address] USALymphocytes/100 WBC (Bld)6.7 %Normal.Norwalk Memorial HospitalComment on above:Performed By: #### CBCNO, BMP #### [address] [place] [address] USAH (RBC) [Entitic mass]26.8 pgLow27.5-35.2FWyandot Memorial HospitalComment on above:Performed By: #### CBCNO, BMP #### [place] [address] USAMCV (RBC) [Entitic vol]81.6 fLLow83.5-101Norwalk Memorial HospitalComment on above:Performed By: #### CBCNO, BMP #### [place] [address] USAMean Corpuscular HGB Conc32.8 g/oRZdrltx78.5-35.6FWyandot Memorial HospitalComment on above:Performed By: #### CBCNO, BMP #### [place] [address] USAMonocytes (Bld) [#/Vol]0.8 10*3/uLNormal0.0-0.8Norwalk Memorial HospitalComment on above:Performed By: #### CBCNO, BMP #### [place] [address] USAMonocytes/100 WBC (Bld)11.5 %Normal.Norwalk Memorial HospitalComment on above:Performed By: #### CBCNO, BMP #### [place] [address] USANeutrophils (Bld) [#/Vol]5.6 10*3/uLNormal1.8-7.7FWyandot Memorial HospitalComment on above:Performed By: #### CBCNO, BMP #### [place] [address] USANeutrophils/100 WBC (Bld)80.6 %Normal.[facility]walk Memorial HospitalComment on above:Performed By: #### CBCNO, BMP #### [place] [address] USANRBC%0.1 /100{WBC}Normal0-0.5FWyandot Memorial HospitalComment on above:Performed By: #### CBCNO, BMP #### [facility] [address] [place] [address] USAPlatelet mean volume (Bld) [Entitic vol]9.4 fLNormal 6.6-10.1FWyandot Memorial HospitalComment on above:Performed By: #### GLENDY, BMP #### [facility] [address] [place] [address] USAPlatelets (Bld) [#/Vol]157 10*3/dYLekkxa737-985CihnmrmzlNorwalk Memorial HospitalComment on above:Performed By: #### GLENDY, BMP #### [facility] [address] [place] [address] USARBC (Bld) [#/Vol]2.88 10*6/uLLow3.90-5.60Norwalk Memorial HospitalComment on above:Performed By: #### GLENDY, BMP #### [facility] [address] [place] [address] USAWBC (Bld) [#/Vol]7.0 10*3/uLNormal4.1-10.5FWyandot Memorial HospitalComment on above:Performed By: #### GLENDY, BMP #### [facility] [address] [place] [address] USAFerritinon 96-23-1857Soromuyi [Mass/Vol]757.4 ng/mLHigh 23.9-336.2FWyandot Memorial HospitalComment on above:Result Comment: PERFORMED BY: [facility] [address] [place] [address] PATHOLOGIST EMERGENCY PHYSICIAN SESAR VAUGHN M.D.Performed By: #### ARRON, FE and TIBC ####[facility] [address] [place], [place] USAFerritin [Mass/volume] in Serum or PlasmaOrdered By: Cristobal Butts on 02-32-4432Zsltjxhc [Mass/Vol]757.4 ng/mL 23.9-336.2FWyandot Memorial HospitalGlucose Poct Glucometerson 05-21-2022 Hgojdmt2Xkk8: Cleaned [facility] HospitalKing's Daughters Medical Center OhioComment on above:Result Comment: PERFORMED BY: [place] [address] PATHOLOGIST EMERGENCY PHYSICIAN SESAR VAUGHN M.D.Performed By: #### CRP #### [place] [address] USAGlucose [Mass/Vol]77 mg/dLKing's Daughters Medical Center OhioComment on above:Result Comment: Random Glucose Reference Range is dependent on time and content of last meal. Glucose of more than 200 mg/dL in a nonstressed, ambulatory subject supports the diagnosis of Diabetes Mellitus.Performed By: #### CRP #### [facility] [address] [place] [address] USAGlucose [Mass/Vol]80 mg/dLKing's Daughters Medical Center OhioComment on above:Result Comment: Random Glucose Reference Range is dependent on time and content of last meal. Glucose of more than 200 mg/dL in a nonstressed, ambulatory subject supports the diagnosis of Diabetes Mellitus. PERFORMED BY: [place] [address] PATHOLOGIST EMERGENCY PHYSICIAN SESAR VAUGHN M.D.Performed By: #### CBCNO, BMP #### [place] [address] USAGlucose [Mass/Vol]192 mg/dLKing's Daughters Medical Center OhioComment on above:Result Comment: Random Glucose Reference Range is dependent on time and content of last meal. Glucose of more than 200 mg/dL in a nonstressed, ambulatory subject supports the diagnosis of Diabetes Mellitus. PERFORMED BY: [address] [address] PATHOLOGIST EMERGENCY PHYSICIAN SESAR VAUGHN M.D.Performed By: #### CBCNO, BMP #### [place] [id number] USAGlucose [Mass/Vol]96 mg/dLKing's Daughters Medical Center OhioComment on above:Result Comment: Random Glucose Reference Range is dependent on time and content of last meal. Glucose of more than 200 mg/dL in a nonstressed, ambulatory subject supports the diagnosis of Diabetes Mellitus. PERFORMED BY: [facility] [address] [place] [id number] PATHOLOGIST EMERGENCY PHYSICIAN SESAR VAUGHN M.D.Performed By: #### CRP #### [facility] [address] [place] [id number] USAGram stain for investigation of transfusion reaction Ordered By: PHILLIP Luis on 92-28-7285Slmjaiptpsq observation Gram stain Nom (Unsp spec)Norwalk Memorial HospitalMicroscopic observation Gram stain Nom (Unsp spec)Norwalk Memorial HospitalIron [Mass/volume] in Serum or PlasmaOrdered By: Cristobal Butts on 09-25-2419Tjkh [Mass/Vol]20 ug/dL 40-160Norwalk Memorial HospitalIron and TIBC Profileon 05-21-2022% Iron Kmsbefxznt71.2 %Hdw85-04QhnajltkcNorwalk Memorial HospitalComment on above: Performed By: #### ARRON, FE and TIBC ####[place] [address] [place], [place] USAIron [Mass/Vol]20 ug/iTPgf93-308HtufjydwlNorwalk Memorial HospitalComment on above:Performed By: #### ARRON, FE and TIBC ####[place] [address] [place], [place] USATotal Iron Binding Rdujrphc715 ug/lKIdp020-660YiwvncqnlNorwalk Memorial HospitalComment on above: Performed By: #### ARRON, FE and TIBC ####[place] [address] [place], [place] USATransferrin [Mass/Vol]74 mg/xAVug686-142ZbxtekwgfNorwalk Memorial HospitalComment on above:Performed By: #### ARRON, FE and TIBC ####[address] USAIron binding capacity [Mass/volume] in Serum or PlasmaOrdered By: Cristobal Butts on 67-22-0751Bsfm binding capacity [Mass/Vol]104 ug/gV887-850IghmjltwvNorwalk Memorial HospitalIron saturation [Mass Fraction] in Serum or PlasmaOrdered By: Cristobal Butts on 59-90-1793Jabc saturation [Mass fraction]19.2 %20-50[facility] Systemn 05-21-2022L Specimen: [id number] Received: 05/22/22 Status: ANSELMO Nichole Num: [id number] Spec Type: Surgical Subm Dr: Primo Luis,DPM, MS, CWS Tissues: A 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 Adapted Physical Education Specialist are submitted following decalcification in two cassettes labeled A1-A2. Microscopic Description Two glass slides with H E stained material have been examined. The microscopic findings support the above pathologic diagnosis. Specimen: [id number] Received: 05/22/22 Status: ANSELMO Vivasyancy Num: [id number] Spec Type: Surgical Subm Dr: Primo Luis DPM, MS, CWS Tissues: A DIGIT AMPUTATION (4TH RT TOE) Procedures: HE/2, Gross/Micro L4, Decalcification Patient: Gopal Yates [id number] (Continued) Specimen: [id number] Received: 05/22/22 (Continued) Signed (signature on file) Dee Nogueira MD 05/25/22 1200 Specimen: [id number] Received: 05/22/22 Status: ANSELMO Gonzales Num: [id number] Spec Type: Surgical Subm Dr: Primo Lius,HARRY, MS, CWS Tissues: A DIGIT AMPUTATION (4TH RT TOE) Procedures: HE/2, Gross/Micro L4, Decalcification Patient: Gopal Yates [id number] (Continued) Specimen: [id number] Received: 05/22/22 (Continued) CPT Codes 72892, 92355 Specimen: Received: 05/22/22 Status: ANSELMO Gonzales Num: [id number] Spec Type: Surgical Subm Dr: Primo Luis,DPM, MS, CWS Tissues: A DIGIT AMPUTATION (4TH RT TOE) Procedures: HE/2, Gross/Micro L4, Decalcification Patient: Gopal Yates Jr [id number] (Continued) Signed (signature on file) Dee Nogueira MD 05/25/22 1200[facility] OhioLeukoReduced RBCon 05-21-2022 LeukoReduced RBCTRANSFUSED 05/21/[address] [place] [address] MR foot RT wo conon 98-82-3230[place] [address] MRI Report Signed Patient: Gopal Yates Jr MR#: [id number] : 1965 Acct:[id number] Age/Sex: 56 / M ADM Date: 05/20/22 Loc: Room: [address] [place] [address] Type: ADM IN Attending Dr: Salvador Alonso [...] Flynn Bradley M.D.05/21/2022 10:03 AM Dictation Location: RADIO-PC-12 Transcribed By: DOROTHY 05/21/22 1003 Dictated By: Flynn Bradley II, MD 05/21/22 0954 Signed By: 05/21/22 100NoMain Campus Medical CenterRenal Function Panelon 10-33-5702Irwiwot [Mass/Vol]1.7 g/dLLow3.2-5.5FWyandot Memorial Hospital Comment on above:Performed By: #### CRP #### [facility] [address] [place] [address] USAAnion gap [Moles/Vol]13.3 mmol/LNormal6.0-15.0Norwalk Memorial HospitalComment on above:Performed By: #### CRP #### [facility] [address] [place] [address] USACalcium [Mass/Vol]7.5 mg/dLLow8.2-10.2FWyandot Memorial HospitalComment on above:Performed By: #### CRP #### [facility] [address] [place] [address] USAChloride [Moles/Vol]102 mmol/BYxirfd07-403WhrgrugbcNorwalk Memorial HospitalComment on above:Performed By: #### CRP #### [facility] [address] [place] [address] USACO2 [Moles/Vol]19.7 mmol/LLow22.0-30.0[facility] Memorial HospitalComment on above:Performed By: #### CRP #### [facility] [address] [place] [address] USACreatinine [Mass/Vol]5.24 mg/dLHigh0.64-1.27Norwalk Memorial HospitalComment on above:Performed By: #### CRP #### [facility] [address] [place] [address] USACreatinine Clr Calc Fesrrsqo15.57NormToledo HospitalComment on above:Result Comment: PERFORMED BY: [place] [address] PATHOLOGIST EMERGENCY PHYSICIAN SESAR VAUGHN M.D.Performed By: #### CRP #### [facility] [address] [place] [address] USAEstimated GFR ( Vkhfbbo81ArxworMstespkkgKing's Daughters Medical Center OhioComment on above:Result Comment: GFR estimated reference range: According to KDOQI guidelines, <60 ml/min/1.73m2 is sufficient to diagnose a patient with chronic kidney disease.Performed By: #### CRP #### [facility] [address] [place] [address] USAEstimated GFR (Non- Uq14AwlravZaadspwanKing's Daughters Medical Center OhioComment on above:Performed By: #### CRP #### [place] [address] USAGlucose [Mass/Vol]86 mg/iBAoejwm78-599PjprsjoebNorwalk Memorial HospitalComment on above:Result Comment: Random Glucose Reference Range is dependent on time and content of last meal. Glucose of more than 200 mg/dL in a nonstressed, ambulatory subject supports the diagnosis of Diabetes Mellitus. ADA recommended reference rangePerformed By: #### CRP #### [place] [address] USAPhosphate [Mass/Vol]5.3 mg/dLHigh2.5-4.6FWyandot Memorial HospitalComment on above:Performed By: #### CRP #### [place] [address] USAPotassium [Moles/Vol]4.0 mmol/LNormal3.5-5.1FWyandot Memorial HospitalComment on above:Performed By: #### CRP #### [place] [address] USASodium [Moles/Vol]131 mmol/OGtl429-173EmktrrldwNorwalk Memorial HospitalComment on above:Performed By: #### CRP #### [place] [address] USAUrea nitrogen [Mass/Vol]72 mg/dLHigh9-23Norwalk Memorial HospitalComment on above:Performed By: #### CRP #### [place] [address] USAType and Screenon 67-06-2402PFU and Rh group Nom (Bld) Blood group A Rh(D) positiveNormalNorwalk Memorial HospitalComment on above:Order Comment: Transfuse now? Y Number of units to transfuse now? 1Result Comment: PERFORMED BY: [facility] [place] [address] PATHOLOGIST EMERGENCY PHYSICIAN SESAR VAUGHN M.D.Activated partial thromboplastin time (aPTT) in platelet poor plasma by coagulation aOrdered By: Gopal Larsen on 54-05-1579cXQT Coag (PPP) [Time]30.7 s25.1-36.5FWyandot Memorial HospitalAlbumin [Mass/volume] in Serum or PlasmaOrdered By: Gopal Larsen on 14-17-1091Dzwqmbh [Mass/Vol]1.8 g/dL 3.2-5.5FWyandot Memorial HospitalAlkaline phosphatase [Enzymatic activity/volume] in Serum or PlasmaOrdered By: Gopal Larsen on 65-10-8496ZFT [Catalytic activity/Vol]169 U/Z99-89IkshtqgwiNorwalk Memorial HospitalAspartate aminotransferase [Enzymatic activity/volume] in Serum or PlasmaOrdered By: Gopal Larsen on 10-24-2623OJF [Catalytic activity/Vol]95 U/Q64-57ZcbjpfszoNorwalk Memorial HospitalBacterial blood cultureOrdered By: Gopal Larsen on 05-20-2022 Bacteria identified Cx Nom (Bld)NO GROWTH 5 DAYSNorwalk Memorial HospitalBacteria identified Cx Nom (Bld)NO GROWTH 5 DAYSNorwalk Memorial HospitalBasophils Auto (Bld) [#/Vol]Ordered By: Gopal Larsen on 54-83-8734Saspfhuoe (Bld) [#/Vol]0.1 10*3/uL0.0-0.2FWyandot Memorial HospitalBasophils/100 WBC Auto (Bld)Ordered By: Gopal Larsen on 77-99-8126Hggayjsqc/100 WBC (Bld)0.8 %. Norwalk Memorial HospitalBilirubin.total [Mass/volume] in Serum or PlasmaOrdered By: Gopal Larsen on 96-25-2818Nxveqptau [Mass/Vol]1.1 mg/dL0.3-1.2 [facility] HospitalBlood Cultureon 53-05-9933Zaowqjzl identified Cx Nom (Bld)NO GROWTH 5 DAYS PERFORMED BY: [place] [address] PATHOLOGIST EMERGENCY PHYSICIAN SESAR VAUGHN M.D.NormalNorwalk Memorial HospitalComment on above: Performed By: #### CUBLD ####[place] [address] USAPerformed By: #### GLULS #### Point of Care testing ,C reactive protein [Mass/volume] in Serum or PlasmaOrdered By: Salvador Alonso on 14-64-8807YVK [Mass/Vol]15.2 mg/dL0.0-1.0Norwalk Memorial HospitalC- Reactive Proteinon 83-46-6997U-Reactive Kgpiajz08.2 mg/dLHigh0.0-1.0[facility] Memorial HospitalComment on above:Result Comment: PERFORMED BY: [place] [address] PATHOLOGIST EMERGENCY PHYSICIAN SESAR VAUGHN M.D.Performed By: #### CRP, ESR ####[place] [id number] USACT chest wo conon 33-83-5723BA chest wo [facility] [place] [address] [place], [place] [address] [place] Scan Report Signed Patient: Gopal Yates Jr MR#: [id number] : 1965 Acct:[id number] Age/Sex: 56 / M ADM Date: 05/20/22 Loc: ER Room: [facility] ER Attending Dr: Copies to: Gopal [...] pleural thickening suggesting a chronic effusion. Small left- sided pleural effusion is seen. There is associated [...] Macias Jr., D.OImani05/20/2022 12:30 PM Dictation Location: [place] [address] Transcribed By: [facility] 05/20/22 1230 Dictated By: Armando Macias Jr, DO 05/20/22 1226 Signed By: 05/20/22 1230NoMain Campus Medical CenterCalcium [Mass/volume] in Serum or PlasmaOrdered By: Gopal Larsen on 78-52-8398Rbggang [Mass/Vol]7.7 mg/dL 8.2-10.2FWyandot Memorial HospitalCarbon dioxide, total [Moles/volume] in Serum or PlasmaOrdered By: Gopal Larsen on 22-50-7731GB3 [Moles/Vol]19.9 mmol/L 22.0-30.0Norwalk Memorial HospitalChloride [Moles/volume] in Serum or PlasmaOrdered By: Gopal Larsen on 23-28-6702Srwtrzpq [Moles/Vol]101 mmol/L95-114 [facility] HospitalComplete Blood Count Auto Diffon 05-20-2022 Basophils (Bld) [#/Vol]0.1 10*3/uLNormal0.0-0.2FWyandot Memorial Hospital Comment on above:Result Comment: PERFORMED BY: [facility] [address] [place] [address] PATHOLOGIST EMERGENCY PHYSICIAN SESAR VAUGHN M.D.Performed By: #### GLULS #### Point of Care testing ,Basophils/100 WBC (Bld)0.8 %Normal.Norwalk Memorial HospitalComment on above:Performed By: #### GLULS #### Point of Care testing ,Eosinophils (Bld) [#/Vol]0.0 10*3/uLNormal0.0-0.45Norwalk Memorial HospitalComment on above:Performed By: #### GLULS #### Point of Care testing ,Eosinophils/100 WBC (Bld)0.2 %Normal.[facility]walk Memorial HospitalComment on above:Performed By: #### GLULS #### Point of Care testing ,Erythrocyte distribution width (RBC) [Ratio]14.9 %High12.0-14.8Norwalk Memorial HospitalComment on above:Performed By: #### GLULS #### Point of Care testing ,Hematocrit (Bld) [Volume fraction]25.4 %Low38.8-50.0Nor[facility] Memorial HospitalComment on above:Performed By: #### GLULS #### Point of Care testing ,Hemoglobin (Bld) [Mass/Vol]8.4 g/dLLow13.0-17.0Nor[facility] Memorial HospitalComment on above:Performed By: #### GLULS #### Point of Care testing ,Lymphocytes (Bld) [#/Vol]0.3 10*3/uLLow1.00-4.8Nor[facility] Memorial HospitalComment on above:Performed By: #### GLULS #### Point of Care testing ,Lymphocytes/100 WBC (Bld)3.3 %Normal.[facility] Memorial HospitalComment on above:Performed By: #### GLULS #### Point of Care testing ,MCH (RBC) [Entitic mass]27.2 pgLow27.5-35.2FWyandot Memorial Hospital Comment on above:Performed By: #### GLULS #### Point of Care testing ,MCV (RBC) [Entitic vol]81.9 fLLow83.5-101[facility] Comment on above:Performed By: #### GLULS #### Point of Care testing ,Mean Corpuscular HGB Conc33.2 g/sFNuicqn58.5-35.6FWyandot Memorial HospitalComment on above:Performed By: #### GLULS #### Point of Care testing ,Monocytes (Bld) [#/Vol]0.8 10*3/uLNormal0.0-0.8Nor[facility] Memorial HospitalComment on above:Performed By: #### GLULS #### Point of Care testing ,Monocytes/100 WBC (Bld)21.96 %High0.00-20.00[facility] Comment on above:Result Comment: For adults in ED, MDW > 20.0 may be associated with a higher risk of sepsis during the first 12 hrs of hospital admissionPerformed By: #### GLULS #### Point of Care testing ,Monocytes/100 WBC (Bld)8.7 %Normal.[facility] Memorial HospitalComment on above:Performed By: #### GLULS #### Point of Care testing ,Neutrophils (Bld) [#/Vol]8.0 10*3/uLHigh1.8-7.7FWyandot Memorial HospitalComment on above:Performed By: #### GLULS #### Point of Care testing ,Neutrophils/100 WBC (Bld)87.0 %Normal.[facility] Memorial HospitalComment on above:Performed By: #### GLULS #### Point of Care testing ,NRBC%0.1 /100{WBC}Normal0-0.5FWyandot Memorial HospitalComment on above: Performed By: #### GLULS #### Point of Care testing ,Platelet mean volume (Bld) [Entitic vol]9.3 fLNormal6.6-10.1FWyandot Memorial HospitalComment on above:Performed By: #### GLULS #### Point of Care testing ,Platelets (Bld) [#/Vol]165 10*3/nIPjkacj643-312NpwbedoggNorwalk Memorial HospitalComment on above:Performed By: #### GLULS #### Point of Care testing ,RBC (Bld) [#/Vol]3.10 10*6/uLLow3.90-5.60[facility] Comment on above:Performed By: #### GLULS #### Point of Care testing ,WBC (Bld) [#/Vol]9.2 10*3/uLNormal4.1-10.5FWyandot Memorial Hospital Comment on above:Performed By: #### GLULS #### Point of Care testing ,Comprehensive Metabolic Panelon 05-97-1252Wjbgchn [Mass/Vol]1.8 g/dLLow3.2-5.5 [facility] HospitalComment on above:Performed By: #### GLULS #### Point of Care testing ,Albumin/Globulin [Mass ratio]0.4 {ratio}NormalNorwalk Memorial Hospital Comment on above:Performed By: #### GLULS #### Point of Care testing ,ALP [Catalytic activity/Vol]169 U/VDwzm48-86TrqzfoyemNorwalk Memorial Hospital Comment on above:Performed By: #### GLULS #### Point of Care testing ,ALT [Catalytic activity/Vol]64 U/MUuai11-43PajubqxbpNorwalk Memorial Hospital Comment on above:Performed By: #### GLULS #### Point of Care testing ,Anion gap [Moles/Vol]15.9 mmol/LHigh6.0-15.0[facility] Comment on above:Performed By: #### GLULS #### Point of Care testing ,AST [Catalytic activity/Vol]95 U/GXedn55-07XhzfhgmalNorwalk Memorial Hospital Comment on above:Performed By: #### GLULS #### Point of Care testing ,Bilirubin [Mass/Vol]1.1 mg/dLNormal0.3-1.2FWyandot Memorial Hospital Comment on above:Performed By: #### GLULS #### Point of Care testing ,Calcium [Mass/Vol]7.7 mg/dLLow8.2-10.2FWyandot Memorial HospitalComment on above:Performed By: #### GLULS #### Point of Care testing ,Chloride [Moles/Vol]101 mmol/HQrxqpe10-830JlyfaqhggNorwalk Memorial Hospital Comment on above:Performed By: #### GLULS #### Point of Care testing ,CO2 [Moles/Vol]19.9 mmol/LLow22.0-30.0Nor[facility] Memorial HospitalComment on above:Performed By: #### GLULS #### Point of Care testing ,Creatinine [Mass/Vol]5.50 mg/dLHigh0.64-1.27Norwalk [facility] Comment on above:Performed By: #### GLULS #### Point of Care testing ,Creatinine Clr Calc Adltaore61.19[facility] OhioComment on above:Result Comment: PERFORMED BY: [facility] [address] [place] [address] PATHOLOGIST EMERGENCY PHYSICIAN SESAR VAUGHN M.D.Performed By: #### GLULS #### Point of Care testing ,Estimated GFR ( Wsllnxy85EucboyPglkjetsqKing's Daughters Medical Center OhioComment on above:Result Comment: GFR estimated reference range: According to KDOQI guidelines, <60 ml/min/1.73m2 is sufficient to diagnose a patient with chronic kidney disease.Performed By: #### GLULS #### Point of Care testing ,Estimated GFR (Non- Iz12NyxqjiEwiqdidmtKing's Daughters Medical Center OhioComment on above:Performed By: #### GLULS #### Point of Care testing ,Globulin (S) [Mass/Vol]4.7 g/dLKing's Daughters Medical Center OhioComment on above:Performed By: #### GLULS #### Point of Care testing ,Glucose [Mass/Vol]110 mg/tPTnhj41-249DqibaxthgNorwalk Memorial HospitalComment on above:Result Comment: Random Glucose Reference Range is dependent on time and content of last meal. Glucose of more than 200 mg/dL in a nonstressed, ambulatory subject supports the diagnosis of Diabetes Mellitus. ADA recommended reference rangePerformed By: #### GLULS #### Point of Care testing ,Potassium [Moles/Vol]4.8 mmol/LNormal3.5-5.1FWyandot [facility] Hospital Comment on above:Performed By: #### GLULS #### Point of Care testing ,Protein [Mass/Vol]6.5 g/dLNormal6.1-7.9[facility]walk [facility] HospitalComment on above:Performed By: #### GLULS #### Point of Care testing ,Sodium [Moles/Vol]132 mmol/KGgp424-041KubpcuoliNorwalk Memorial HospitalComment on above:Performed By: #### GLULS #### Point of Care testing ,Urea nitrogen [Mass/Vol]77 mg/dLHigh9-23[facility] Comment on above:Performed By: #### GLULS #### Point of Care testing ,Creatinine and Glomerular filtration rate.predicted panel (S/P/Bld)Ordered By: Gopal Larsen on 64-09-6923Ydwxxtwbnv [Mass/Vol]5.50 mg/dL0.64-1.27Norwalk Memorial HospitalECG 12 lead ECGon 23-37-3546KWM [address] [facility] [address] Electrocardiograph Report Signed Patient: Gopal Yates Jr MR#: [id number] : 1965 Acct:[id number] Age/Sex: 56 / M ADM Date: 05/20/22 Loc: Room: [address] [place] [address] Type: ADM IN Attending Dr: Salvador Alonso [...] MUS Signed By Gopal Larsen MD 05/20/22 1935NormalNorwalk Memorial HospitalEosinophils Auto (Bld) [#/Vol]Ordered By: Gopal Larsen on 26-58-6930Rsewantgvqo (Bld) [#/Vol]0.0 10*3/uL0.0-0.45 [facility] HospitalEosinophils/100 WBC Auto (Bld)Ordered By: Gopal Larsen on 26-50-0476Wkjgfjefezy/100 WBC (Bld)0.2 %.[facility] HospitalErythrocyte Sedimentation Rateon 39-00-2564XJY (Bld) [Velocity]88 mm/hHigh [facility] HospitalComment on above:Result Comment: PERFORMED BY: [facility] [address] [place] [address] PATHOLOGIST EMERGENCY PHYSICIAN SESAR VAUGHN M.D.Performed By: #### CRP, ESR ####[facility] [address] [place] [address] USAErythrocyte distribution width Auto (RBC) [Ratio]Ordered By: Gopal Larsen on 30-24-5330Ajwxnpgcnfh distribution width (RBC) [Ratio]14.9 %12.0-14.8[facility] HospitalErythrocyte sedimentation rate by Photometric methodOrdered By: Salvador Alonso on 05-20-2022 ESR Photometric method (Bld) [Velocity]88 mm/hr0[facility]walk [facility] HospitalEstimated glomerular filtration rate (GFR) non- AmericanOrdered By: Gopal Larsen on 19-75-9424IYZ/1.73 sq M.predicted among non-blacks MDRD (S/P/Bld) [Vol rate/Area]11 mL/MinNorwalk Memorial HospitalGlobulin Calc (S) [Mass/Vol]Ordered By: Gopal Larsen on 10-20-7871Tlkkcsat (S) [Mass/Vol]4.7 g/dL [facility] HospitalGlucose [Mass/volume] in Serum or PlasmaOrdered By: Gopal Larsen on 40-94-3164Nvtqhhk [Mass/Vol]110 mg/sZ48-655HwnttjwgrNorwalk Memorial HospitalComment on above:ADA recommended reference rangeRandom Glucose Reference Range is dependent on time and content of last meal. Glucose of more than 200 mg/dL in a nonstressed, ambulatory subject supports the diagnosisof Diabetes Mellitus.Hematocrit Auto (Bld) [Volume fraction]Ordered By: Gopal Larsen on 36-43-4639Yoafizabvo (Bld) [Volume fraction]25.4 %38.8-50.0[facility] HospitalHemoglobin [Mass/volume] in BloodOrdered By: Gopal Larsen on 81-08-6554Hphfumfzoq (Bld) [Mass/Vol]8.4 g/dL13.0-17.0[facility] HospitalLaboratory - CoagulationOrdered By: Gopal Larsen on 83-76-1658LP Coag (PPP) [Time]15.3 s9.0-12.9[facility] HospitalLactic Acidon 05-20-2022 Lactate [Moles/Vol]1.8 mmol/LNormal0.5-2.2FWyandot [facility] Hospital Comment on above:Result Comment: PERFORMED BY: [place] [address] PATHOLOGIST EMERGENCY PHYSICIAN SESAR VAUGHN M.D.Performed By: #### CRP #### [place] [address] USALeukocytes [#/volume] corrected for nucleated erythrocytes in Blood by Automated counOrdered By: Gopal Larsen on 03-14-8276NMW corrected for nucl RBC Auto (Bld) [#/Vol]9.2 10*3/uL4.1-10.5FWyandot [facility] Hospital Lymphocytes Auto (Bld) [#/Vol]Ordered By: Gopal Larsen on 51-77-0566Zydwkcegboc (Bld) [#/Vol]0.3 10*3/uL1.00-4.8[facility] HospitalLymphocytes/100 WBC Auto (Bld)Ordered By: Gopal Larsen on 69-05-3392Tlmwcknteug/100 WBC (Bld)3.3 %.[facility] HospitalMCH Auto (RBC) [Entitic mass]Ordered By: Gopal Larsen on 63-84-4337NXA (RBC) [Entitic mass]27.2 pg27.5-35.2FProMedica Defiance Regional HospitalHC Auto (RBC) [Mass/Vol]Ordered By: Gopal Larsen on 49-63-7871ZZEF (RBC) [Mass/Vol]33.2 g/dL32.5-35.6FWyandot Memorial HospitalMCV Auto (RBC) [Entitic vol]Ordered By: Gopal Larsen on 76-28-3034VVO (RBC) [Entitic vol] 81.9 fL83.5-101[facility] HospitalMonocyte distribution width [Entitic volume] in Blood by AutomatedOrdered By: Gopal Larsen on 05-20-2022 Monocyte distribution width Auto (Bld) [Entitic vol]21.96 %0.00-20.00[facility] HospitalComment on above:For adults in ED, MDW > 20.0 may be associated with a higher risk of sepsis during the first 12 hrs of hospital admissionMonocytes Auto (Bld) [#/Vol]Ordered By: Gopal Larsen on 05-20-2022 Monocytes (Bld) [#/Vol]0.8 10*3/uL0.0-0.8[facility] Monocytes/100 WBC Auto (Bld)Ordered By: Gopal Larsen on 83-55-6836Skoymfsxx/100 WBC (Bld)8.7 %.[facility] HospitalNeutrophils Auto (Bld) [#/Vol] Ordered By: Gopal Larsen on 87-65-0559Jpntitcktry (Bld) [#/Vol]8.0 10*3/uL1.8-7.7 [facility] HospitalNeutrophils/100 WBC Auto (Bld)Ordered By: Gopal Larsen on 72-68-1094Prperadfipw/100 WBC (Bld)87.0 %.[facility] HospitalNo Panel InformationOrdered By: Gopal Larsen on 67-81-5494Xtcizubpr GFR ()13 mL/MinNorwalk Memorial HospitalComment on above:GFR estimated reference range: According to KDOQI guidelines, <60 ml/min/1.73m2 is sufficient todiagnose a patient with chronic kidney disease.Pharmacy Creatinine Clearance (Chem18.19[facility] HospitalNucleated erythrocytes [Presence] in Blood by Automated countOrdered By: Gopal Larsen on 05-20-2022 Nucleated RBC Auto Ql (Bld)0.1 /100{WBC}0-0.5FWyandot Memorial Hospital Partial Thromboplastin Timeon 32-47-9062ePOA Coag (Bld) [Time]30.7 sNormal 25.1-36.5FWyandot Memorial HospitalComment on above:Result Comment: PERFORMED BY: [facility] [address] [place] [address] PATHOLOGIST EMERGENCY PHYSICIAN SESAR VAUGHN M.D.Performed By: #### GLULS #### Point of Care testing ,Platelet mean volume Auto (Bld) [Entitic vol]Ordered By: Gopal Larsen on 01-04-1341Gwourlmq mean volume (Bld) [Entitic vol]9.3 fL6.6-10.1FWyandot Memorial HospitalPlatelet poor plasma international normalized ratio (INR) by coagulation assay (relatOrdered By: Gopal Larsen on 62-88-6337WPD Coag (PPP) [Relative time]1.3 {INR}[facility] HospitalComment on above:INR Therapeutic Range A) Pre- and Peroperative OAT started two weeks before surgery. NOT HIP SURGERY: 1.5 - 2.5 HIP SURGERY: 2 - 3B) Primary and secondary prevention of venous THROMBOSIS: 2 - 3C) Active venous thrombosis, pulmonary embolismand prevention of recurrent venous thrombosis: 2 - 3D) Prevention of arterial thromboembolismincluding patients with mechanical heart valves: 3 - 4.5Platelets Auto (Bld) [#/Vol]Ordered By: Gopal Larsen on 25-75-9515Mgpigfopg (Bld) [#/Vol]165 10*3/aG557-342WdrgnbcwgNorwalk Memorial HospitalPotassium [Moles/volume] in Serum or PlasmaOrdered By: Gopal Larsen on 05-51-8090Ukpswyyed [Moles/Vol]4.8 mmol/L3.5-5.1FWyandot Memorial HospitalProtein [Mass/volume] in Serum or PlasmaOrdered By: Gopal Larsen on 18-01-7069Zpskfmz [Mass/Vol]6.5 g/dL6.1-7.9 [facility] HospitalProthrombin Time INRon 15-53-7841VEZ Coag (PPP) [Relative time]1.3 {INR}NormalNorwalk Memorial HospitalComment on above:Result Comment: INR Therapeutic Range A) Pre- and [...] patients with mechanical heart valves: 3 - 4.5Performed By: #### GLULS #### Point of Care testing ,PT Coag (PPP) [Time]15.3 sHigh9.0-12.9[facility] HospitalComment on above:Performed By: #### GLULS #### Point of Care testing ,RBC Auto (Bld) [#/Vol]Ordered By: Gopal Larsen on 81-39-2219HJZ (Bld) [#/Vol]3.10 10*6/uL3.90-5.60[facility] Hospitalerum or plasma alanine aminotransferase measurement without P-5'-P (enzymatic activiOrdered By: Gopal Larsen on 58-89-2777FNG No additional P-5'-P [Catalytic activity/Vol]64 U/L10-60 [facility] Hospitalerum or plasma albumin/globulin mass ratio Ordered By: Gopal Larsen on 86-92-5309Obuqgth/Globulin [Mass ratio]0.4 {ratio} [facility] Hospitalerum or plasma anion gap determinationOrdered By: Gopal Larsen on 87-05-2873Soocw gap [Moles/Vol]15.9 mmol/L6.0-15.0[facility]erm[facility] Hospitalodium [Moles/volume] in Serum or PlasmaOrdered By: Gopal Larsen on 40-02-9947Rbkwxx [Moles/Vol]132 mmol/Q460-766LglrulszoMercy Health Clermont Hospitaluperficial Wound Cultureon 47-09-1114Pdohegxsnvv Wound CultureLight Normal Skin Efren 2 Days PERFORMED BY: [facility] [address] [place] [address] PATHOLOGIST EMERGENCY PHYSICIAN SESAR VAUGHN M.D.[facility] OhioComment on above: Performed By: #### CUSUP ####[facility] [address] [place] [id number] USAUrea nitrogen [Mass/volume] in Serum or Plasma Ordered By: Gopal Larsen on 88-85-7353Fdkr nitrogen [Mass/Vol]77 mg/dL9 [facility] HospitalUrine lactic acid measurementOrdered By: Gopal Larsen on 65-23-8050Zhjxuqf (U) [Moles/Vol]1.8 mmol/L0.5-2.2FWyandot Memorial HospitalWBC Auto (Bld) [#/Vol]Ordered By: Gopal Larsen on 28-71-3201FZF (Bld) [#/Vol]9.2 10*3/uL4.1-10.5FWyandot Memorial HospitalXR chest 1V portableon 47-42-3370UR chest [address]V [address] [address] [facility] [address] [place], [place] [id number] XRay Report Signed Patient: Gopal Yates Jr MR#: [id number] : 1965 Acct:[id number] Age/Sex: 56 / M ADM Date: 05/20/22 Loc: ER Room: [facility] ER Attending Dr: Copies to: Gopal [...] Flynn Bradley M.D.05/20/2022 11:02 AM Dictation Location: RADIO-PC-07 Transcribed By: DOROTHY 05/20/22 1102 Dictated By: Flynn Bradley II, MD 05/20/22 1059 Signed By: 05/20/22 1102NoMain Campus Medical CenterXR foot RT 2Von 86-72-2629QC foot RT 2VMERCY [facility] [address] [place] [place] [address] XRay Report Signed Patient: oGpal Yates Jr MR#: [id number] : 1965 Acct:[id number] Age/Sex: 56 / M ADM Date: 05/20/22 Loc: ER Room: Type[facility] ER Attending Dr: Copies to: Gopal [...] Flynn Bradley M.D.05/20/2022 11:04 AM Dictation Location: RADIO-PC-07 Transcribed By: DOROTHY 05/20/22 1104 Dictated By: Flynn Bradley II, MD 05/20/22 1102 Signed By: 05/20/22 1104NormalNorwalk Memorial HospitalAerobic cultureOrdered By: Eddy Griggs on 54-80-9242Brblsoae identified Aer cx Nom (Unsp spec)2 Days [facility] HospitalBacteria identified Aer cx Nom (Unsp spec)2 DaysMercy Health Clermont Hospitaluperficial Wound Cultureon 05-19-2022 Superficial Wound CultureRare normal skin efren 2 Days PERFORMED BY: [facility] [address] [place] [address] PATHOLOGIST EMERGENCY PHYSICIAN SESAR VAUGHN M.D.[facility] OhioComment on above: Performed By: #### CRP #### [facility] [address] [place] [address] USABasophils Auto (Bld) [#/Vol]Ordered By: Cornelio anjanams on 88-67-0646Aexlecgpr (Bld) [#/Vol]0.1 10*3/uL0.0-0.2FWyandot Memorial HospitalBasophils/100 WBC Auto (Bld)Ordered By: Corneliojose Kendrickms on 34-34-9731Pcruagbhh/100 WBC (Bld)0.6 %.[facility] HospitalCreatinine and Glomerular filtration rate.predicted panel (S/P/Bld)Ordered By: Cornelio [facility] on 44-94-7693Odvquylugf [Mass/Vol]5.34 mg/dL0.64-1.27 [facility] HospitalEosinophils Auto (Bld) [#/Vol]Ordered By: [facility] on 54-56-7733Bruhdbkggvz (Bld) [#/Vol]0.1 10*3/uL0.0-0.45 [facility] HospitalEosinophils/100 WBC Auto (Bld)Ordered By: [facility] on 04-40-1702Vfucphzobja/100 WBC (Bld)0.7 %.[facility] HospitalErythrocyte distribution width Auto (RBC) [Ratio]Ordered By: Corneliopadmini Joynerfroedtert kenos[facility] medical [facility] on 92-94-5475Slutdyxssus distribution width (RBC) [Ratio]14.3 %12.0-14.8[facility] HospitalEstimated glomerular filtration rate (GFR) non- AmericanOrdered By: Cornelio Simon on 31-15-2280HZO/1.73 sq M.predicted among non-blacks MDRD (S/P/Bld) [Vol rate/Area]11 mL/MinNorwalk Memorial HospitalHematocrit Auto (Bld) [Volume fraction]Ordered By: Conrelio Simon on 03-86-4001Bcqwbshsjs (Bld) [Volume fraction]27.0 %38.8-50.0[facility] HospitalHemoglobin [Mass/volume] in BloodOrdered By: Cornelio Simon on 21-24-8335Knzoxirlqm (Bld) [Mass/Vol]9.1 g/dL13.0-17.0[facility] HospitalLeukocytes [#/volume] corrected for nucleated erythrocytes in Blood by Automated coun Ordered By: Cornelio Simon on 04-35-6010GCM corrected for nucl RBC Auto (Bld) [#/Vol]9.8 10*3/uL4.1-10.5FWyandot Memorial HospitalLymphocytes Auto (Bld) [#/Vol]Ordered By: Cornelio Simon on 21-33-7162Qxnqfrjoikk (Bld) [#/Vol]0.4 10*3/uL1.00-4.8[facility] HospitalLymphocytes/100 WBC Auto (Bld)Ordered By: Cornelio Simon on 37-51-4615Vsixctyrjib/100 WBC (Bld) 4.0 %.[facility] Auto (RBC) [Entitic mass]Ordered By: Cornelio Simon on 92-75-4297SXC (RBC) [Entitic mass]27.8 pg27.5-35.2 [facility] HospitalHC Auto (RBC) [Mass/Vol]Ordered By: Cornelio Simon on 72-25-6045CCQL (RBC) [Mass/Vol]33.6 g/dL32.5-35.6FWyandot Memorial HospitalMCV Auto (RBC) [Entitic vol]Ordered By: Cornelio Simon on 19-90-0881AWU (RBC) [Entitic vol]82.5 fL83.5-101[facility] HospitalMonocytes Auto (Bld) [#/Vol]Ordered By: Cornelio Simon on 42-26-7347Ghbynnucs (Bld) [#/Vol]0.9 10*3/uL0.0-0.8[facility] HospitalMonocytes/100 WBC Auto (Bld)Ordered By: Cornelio Simon on 05-08-2022 Monocytes/100 WBC (Bld)9.6 %.[facility] HospitalNeutrophils Auto (Bld) [#/Vol]Ordered By: Cornelio Simon on 61-14-3289Gxmsovaaeia (Bld) [#/Vol]8.3 10*3/uL1.8-7.7FWyandot Memorial HospitalNeutrophils/100 WBC Auto (Bld)Ordered By: Cornelio Simon on 42-02-0270Dsyzeecwpsu/100 WBC (Bld) 85.1 %.[facility] HospitalNo Panel InformationOrdered By: Cornelio Simon on 55-71-1749Rzreadbfr GFR ()13 mL/Min [facility] HospitalComment on above:GFR estimated reference range: According to KDOQI guidelines, <60 ml/min/1.73m2 is sufficient todiagnose a patient with chronic kidney disease.Pharmacy Creatinine Clearance (Chem18.74 [facility] HospitalNucleated erythrocytes [Presence] in Blood by Automated countOrdered By: Cornelio Simon on 41-45-7527Vtzyrlydd RBC Auto Ql (Bld)0.3 /100{WBC}0-0.5FWyandot Memorial HospitalPlatelet mean volume Auto (Bld) [Entitic vol]Ordered By: Cornelio Simon on 21-69-5394Pqjyhkxn mean volume (Bld) [Entitic vol]9.2 fL6.6-10.1FWyandot [facility] Hospital Platelets Auto (Bld) [#/Vol]Ordered By: Cornelio Simon on 05-08-2022 Platelets (Bld) [#/Vol]168 10*3/gS656-131JvmbzoudxNorwalk Memorial HospitalRBC Auto (Bld) [#/Vol]Ordered By: Cornelio Simon on 87-07-8536JEX (Bld) [#/Vol] 3.27 10*6/uL3.90-5.60[facility] Hospitalerum or plasma anion gap determinationOrdered By: Cornelio Simon on 85-65-2907Cwype gap [Moles/Vol] 10.5 mmol/L6.0-15.0[facility] Hospitalerum or plasma calcium measurement (mass/volume)Ordered By: Cornelio Simon on 83-53-0851Oayeror [Mass/Vol]7.3 mg/dL8.2-10.2FMedina Hospitalerum or plasma chloride measurement (moles/volume)Ordered By: Cornelio Simon on 05-08-2022 Chloride [Moles/Vol]104 mmol/U23-850HbkwyemcjMercy Health Clermont Hospitalerum or plasma glucose measurement (mass/volume)Ordered By: Cornelio Simon on 24-51-1611Drhcotn [Mass/Vol]100 mg/gP07-679GmvxltwvbNorwalk Memorial Hospital Comment on above:ADA recommended reference rangeRandom Glucose Reference Range is dependent on time and content of last meal. Glucose of more than 200 mg/dL in a nonstressed, ambulatory subject supports the diagnosisof Diabetes Mellitus. Serum or plasma potassium measurement (moles/volume)Ordered By: Cornelio Simon on 44-98-5013Opevywktc [Moles/Vol]3.7 mmol/L3.5-5.1FMedina Hospitalerum or plasma sodium measurement (moles/volume)Ordered By: Cornelio Simon on 16-82-2663Kudryx [Moles/Vol]133 mmol/Z423-880DtddkncsbMercy Health Clermont Hospitalerum or plasma total carbon dioxide measurement (moles/volume)Ordered By: Cornelio Simon on 95-31-7809IW7 [Moles/Vol]22.2 mmol/L22.0-30.0[facility] Hospitalerum or plasma urea nitrogen measurement (mass/volume)Ordered By: Cornelio Simon on 55-27-1208Jcuc nitrogen [Mass/Vol]80 mg/dL9-23[facility] HospitalWBC Auto (Bld) [#/Vol]Ordered By: Cornelio Simon on 84-25-9717CMD (Bld) [#/Vol]9.8 10*3/uL 4.1-10.5FWyandot Memorial HospitalAerobic cultureOrdered By: Eddy Griggs on 67-38-3584Vpeoxrjq identified Aer cx Nom (Unsp spec)No Growth 2 Days [facility] HospitalBacteria identified Aer cx Nom (Unsp spec)No Growth 2 DaysNorwalk Memorial HospitalBacteria identified Anaer cx Nom (Unsp spec)Ordered By: Eddy Griggs on 38-34-6320Heiqwsyyl CultureBacteroides [facility] State Health SystemAnaerobic CultureBacteroides [facility] medical centerilis [facility] HospitalGlucose Glucometer (BldC) [Mass/Vol]Ordered By: Cornelio Simon on 36-13-2723Vulwezu [Mass/Vol]193 mg/dLNorwalk Memorial HospitalComment on above:Random Glucose Reference Range is dependent on time and content of last meal. Glucose of more than 200 mg/dL in a nonstressed, ambulatory subject supports the diagnosis of Diabetes Mellitus.Gram stain for investigation of transfusion reactionOrdered By: Eddy Griggs on 05-07-2022 Microscopic observation Gram stain Nom (Unsp spec)[facility] HospitalMicroscopic observation Gram stain Nom (Unsp spec)[facility] HospitalNo Panel InformationOrdered By: Cornelio Simon on 05-07-2022 Bedside Glucose CommentGlu2: cleaned [facility] Activated partial thromboplastin time (aPTT) in platelet poor plasma by coagulation aOrdered By: Cornelio Simon on 03-30-5236eFIY Coag (PPP) [Time] 38.6 s25.1-36.5FWyandot Memorial HospitalAlbumin [Mass/volume] in Serum or PlasmaOrdered By: Cornelio Simon on 21-62-0638Bqakyjm [Mass/Vol]2.2 g/dL 3.2-5.5FWyandot Memorial HospitalCT biopsyOrdered By: Yvonne Barboza on 09-41-5999Cmbfzakezfx [Mass/Vol]89 mg/jT539-610QgcbsqslnNorwalk Memorial Hospital Cholesterol [Mass/volume] in Serum or PlasmaOrdered By: Cornelio Simon on 37-82-7782Oqmbnsufbsg [Mass/Vol]63 mg/nV834-336WqhmugbjhNorwalk Memorial Hospital Comment on above:Chol less than 200 mg/dl low riskChol 201-239 mg/dl borderline riskChol 240 mg/dl and greater high riskCholesterol in LDL Calc [Mass/Vol] Ordered By: Cornelio iSmon on 92-10-2972Kmxewiwclnl in LDL [Mass/Vol]28 mg/dL0-100Nor[facility] HospitalComment on above:LDL ATP III CLASSIFICATIONLDL less than 100 mg/dL OptimalLDL 100-129 mg/dL Near or above ehjpkhzTTO217-783 mg/dL Borderline highLDL 160-189 mg/dL HighLDL greater than 189 mg/dL Very highCholesterol in VLDL Calc [Mass/Vol]Ordered By: Cornelio Simon on 33-92-3399Bveyzwgyjkp in VLDL [Mass/Vol]16 mg/dLNorwalk Memorial HospitalFerritin [Mass/volume] in Serum or PlasmaOrdered By: Yvonne Barboza on 71-47-7355Tbsulktv [Mass/Vol]426.1 ng/mL23.9-336.2FWyandot Memorial HospitalFolate [Mass/volume] in Serum or PlasmaOrdered By: Yvonne Barboza on 36-32-1554Mngsgp [Mass/Vol]13.4 ng/mL>5.9[facility] Comment on above:Folate reference range: >5.9 ng/mlThe WHO technical consultation on folate and vitamin r61toclxrujszvt has determined that folate concentrations lessthan 4 ng/ml are considered deficient.Globulin Calc (S) [Mass/Vol]Ordered By: Cornelio Simon on 52-84-1135Ezbzjsjf (S) [Mass/Vol] 4.1 g/dLNorwalk Memorial HospitalGlucose mean value [Mass/volume] in Blood Estimated from glycated hemoglobinOrdered By: Cornelio Simon on 72-13-0920Zhsmzjl glucose Estimated from glycated hemoglobin (Bld) [Mass/Vol]114 mg/dLNorwalk Memorial HospitalHemoglobin A1c percentageOrdered By: Cornelio Simon on 22-73-8207OfD3s (Bld) [Mass fraction]5.6 %4.3-5.6 [facility] HospitalComment on above:Increased risk for diabetes: 5.7 - 6.4diabetes: >6.4glycemic control for adults with diabetes: <7.0Iron [Mass/volume] in Serum or PlasmaOrdered By: Yvonne Barboza on 78-93-9532Iaoq [Mass/Vol]15 ug/xZ56-776NtprjweqiNorwalk Memorial HospitalIron binding capacity [Mass/volume] in Serum or PlasmaOrdered By: Yvonne Tamra on 53-24-2529Nhsc binding capacity [Mass/Vol]125 ug/eI515-999SmfqewbfyNorwalk Memorial HospitalIron saturation [Mass Fraction] in Serum or PlasmaOrdered By: Yvonne Tmara on 39-17-0704Fros saturation [Mass fraction]12.0 %20-50[facility] HospitalLaboratory - Chemistry and Chemistry - challengeOrdered By: Yvonne Barboza on 52-17-1475Qwzvgdhrz (Vitamin B12) [Mass/Vol]373 pg/uK893-534KlnamjcccNorwalk Memorial HospitalLaboratory - CoagulationOrdered By: Cornelio Simon on 09-02-2345GA Coag (PPP) [Time]16.0 s9.0-12.9[facility] Platelet poor plasma international normalized ratio (INR) by coagulation assay (relatOrdered By: Cornelio Simon on 17-06-3606MJD Coag (PPP) [Relative time]1.4 {INR}[facility] HospitalComment on above:INR Therapeutic Range A) Pre- and Peroperative OAT started two weeks before surgery. NOT HIP SURGERY: 1.5 - 2.5 HIP SURGERY: 2 - 3B) Primary and secondary prevention of venous THROMBOSIS: 2 - 3C) Active venous thrombosis, pulmonary embolismand prevention of recurrent venous thrombosis: 2 - 3D) Prevention of arterial thromboembolismincluding patients with mechanical heart valves: 3 - 4.5Protein [Mass/volume] in Serum or PlasmaOrdered By: Cornelio Simon on 05-06-2022 Protein [Mass/Vol]6.3 g/dL6.1-7.9[facility] Hospitalerum or plasma alanine aminotransferase measurement without P-5'-P (enzymatic activi Ordered By: Cornelio Simon on 64-94-4692MXM No additional P-5'-P [Catalytic activity/Vol]23 U/X30-30UebsfchleMercy Health Clermont Hospitalerum or plasma albumin/globulin mass ratioOrdered By: Cornelio Simon on 05-06-2022 Albumin/Globulin [Mass ratio]0.5 {ratio}[facility] Hospitalerum or plasma alkaline phosphatase measurement (enzymatic activity/volume)Ordered By: Cornelio Simon on 67-45-6485EDG [Catalytic activity/Vol]137 U/L32-92 [facility] Hospitalerum or plasma aspartate aminotransferase measurement (enzymatic activity/volume)Ordered By: Cornelio Simon on 55-16-6680RRX [Catalytic activity/Vol]28 U/V06-43TaxmbyoczMercy Health Clermont Hospitalerum or plasma high density lipoprotein (HDL) cholesterol measurement Ordered By: Cornelio Simon on 05-07-7714Sarzjyqkmqg in HDL [Mass/Vol]18 mg/pZ94-74TgapqtgxeNorwalk Memorial HospitalComment on above:HDL CHOL ATP-III CLASSIFICATION Cardiovascular RiskHDL > or equal to 60 mg/dL LOWHDL < 40 mg/dL HIGHSerum or plasma total bilirubin measurement (mass/volume)Ordered By: Cornelio Simon on 54-04-7954Jjwrwxzwu [Mass/Vol]1.0 mg/dL0.3-1.2FMedina Hospitalerum or plasma total cholesterol/high density lipoprotein (HDL) cholesterol mass ratOrdered By: Cornelio Simon on 03-47-3255Lyrqofrhofu.total/Cholesterol in HDL [Mass ratio]3.5 {ratio}<5.0 [facility] HospitalTriglyceride [Mass/volume] in Serum or Plasma Ordered By: Cornelio Simon on 95-46-2139Fljdtbygcsbq [Mass/Vol]83 mg/dL 35-149Norwalk Memorial HospitalComment on above:TRIG ATP III CLASSIFICATIONTRIG less than 150 mg/dL NormalTRIG 150-199 mg/dL Borderline highTRIG 200-500 mg/dL High TRIG greater than 500 mg/dL Very highStandard traceable to the Center for Disease Conrtrol and Prevention (CDC) test method. Albumin [Mass/volume] in Serum or PlasmaOrdered By: Lambert Blanc on 05-05-2022 Albumin [Mass/Vol]2.6 g/dL3.2-5.5FWyandot Memorial HospitalBacterial blood cultureOrdered By: Lambert Blanc on 26-98-7240Hvplrgab identified Cx Nom (Bld)NO GROWTH 5 DAYSNorwalk Memorial HospitalBacteria identified Cx Nom (Bld)NO GROWTH 5 DAYSNorwalk Memorial HospitalBacterial susceptibility panel MARCELO (Isol)on 08-86-5945Xpcoohnthmjha identified Cx Nom (Unsp spec)[id number] AbnormalKettering Health Greene MemorialComsturgis hospital on above:Order Comment: Specimen Type: MICROBIAL ISOLATEOrdering Facility: [facility] HospitalAddress: [address] [place] [id number] Comment: Bacteroides fragilis group Specifically Bacteroides fragilis,as identified by client. Bacteroides spp. are intrinsically resistant to ampicillin, penicillin, and aminoglycosides.Performed By: #### 84957-8, 21322-3 ####[facility] LABCLIA [id number] [place] [address] [place] OF AMERICABacterial susceptibility panel Strip (Isol)on 05-05-2022 Ampicillin+Sulbactam [Susc]8SusceptibleSusceptible <=8 , Intermediate >8 , Resistant >16[facility] on above:Order Comment: [facility]ing Facility: [facility] Address: [address] [place], [place] [id number] By: #### 31237-2, 91265-9 ####[facility] LABCLIA [id number] [place] [id number] [place] OF AMERICAErtapenem MARCELO [Susc]0.25SusceptibleSusceptible <=4 , Intermediate >4 , Resistant >8COhio State Harding [facility] on above:Order Comment: [facility] Facility[facility] Address: [address] [place], [place] [address]Performed By: #### [id number], 67646-2 ####[facility] LABCLIA [id number] [place] [address] [place] AMERICAmetroNIDAZOLE [Susc]0.125 SusceptibleSusceptible <=8 , Intermediate >8 , Resistant >16[facility] on above:Order Comment: [facility]ing Facility[facility] Address: [address] [place], [place] [address]Performed By: #### 38768-8, 75033-7 ####[facility] LABCLIA [id number] [place] [address] [place] OF AMERICABasophils Auto (Bld) [#/Vol]Ordered By: Lambert Blanc on 66-11-5495Baghcfdxl (Bld) [#/Vol]0.0 10*3/uL0.0-0.2FWyandot Memorial HospitalBasophils/100 WBC Auto (Bld) Ordered By: Lambert Blanc on 15-82-5233Udukhxhtl/100 WBC (Bld)0.0 %.[facility]walk [facility] HospitalC reactive protein [Mass/volume] in Serum or Plasma Ordered By: Lambert Blanc on 54-98-1790GEN [Mass/Vol]12.5 mg/dL0.0-1.0[facility] HospitalCreatinine and Glomerular filtration rate.predicted panel (S/P/Bld)Ordered By: Lambert Blanc on 26-80-5408Zjlqryxxbm [Mass/Vol]6.13 mg/dL 0.64-1.27[facility] HospitalEosinophils Auto (Bld) [#/Vol]Ordered By: Lambert Blanc on 35-91-6479Wrnvobbqwwd (Bld) [#/Vol]0.0 10*3/uL0.0-0.45 [facility] HospitalEosinophils/100 WBC Auto (Bld)Ordered By: Lambert Blanc on 29-13-0631Fdmcynwlopb/100 WBC (Bld)0.2 %.[facility] HospitalErythrocyte distribution width Auto (RBC) [Ratio]Ordered By: Lambert Blanc on 56-98-0799Gkntfpgrsvb distribution width (RBC) [Ratio]14.2 %12.0-14.8 [facility] HospitalErythrocyte sedimentation rate by Photometric methodOrdered By: Lambert Blanc on 18-46-3714NEX Photometric method (Bld) [Velocity]119 mm/hr0-19[facility] HospitalEstimated glomerular filtration rate (GFR) non- AmericanOrdered By: Lambert Blanc on 05-05-2022 GFR/1.73 sq M.predicted among non-blacks MDRD (S/P/Bld) [Vol rate/Area]10 mL/Min [facility] HospitalGlobulin Calc (S) [Mass/Vol]Ordered By: Lambert Blanc on 41-78-7866Aqfvqwxz (S) [Mass/Vol]4.6 g/dLNorwalk Memorial HospitalHematocrit Auto (Bld) [Volume fraction]Ordered By: Lambert Blanc on 64-02-9674Ubntttpsjf (Bld) [Volume fraction]31.8 %38.8-50.0[facility] HospitalHemoglobin [Mass/volume] in BloodOrdered By: Lambert Blanc on 86-62-5680Cmizxrogca (Bld) [Mass/Vol]10.4 g/dL13.0-17.0[facility] HospitalLeukocytes [#/volume] corrected for nucleated erythrocytes in Blood by Automated counOrdered By: Lambert Blanc on 92-95-7013QXC corrected for nucl RBC Auto (Bld) [#/Vol]11.9 10*3/uL4.1-10.5FWyandot Memorial Hospital Lymphocytes Auto (Bld) [#/Vol]Ordered By: Lambert Blanc on 88-07-8594Tukqopiwplt (Bld) [#/Vol]0.4 10*3/uL1.00-4.8[facility] HospitalLymphocytes/100 WBC Auto (Bld)Ordered By: Lambert Blanc on 11-24-4916Bvogkjaudhr/100 WBC (Bld)3.2 %.[facility] HospitalH Auto (RBC) [Entitic mass]Ordered By: Lambert Blanc on 30-43-9029UVP (RBC) [Entitic mass]27.5 pg27.5-35.2FWyandot Memorial HospitalMCHC Auto (RBC) [Mass/Vol]Ordered By: Lamebrt Blanc on 66-80-3287HQVH (RBC) [Mass/Vol]32.8 g/dL32.5-35.6FWyandot Memorial HospitalMCV Auto (RBC) [Entitic vol]Ordered By: Lamebrt Blanc on 55-55-1448MET (RBC) [Entitic vol]83.9 fL83.5-101Nor[facility] HospitalMonocyte distribution width [Entitic volume] in Blood by AutomatedOrdered By: Lambert Blanc on 91-30-1666Uykyortr distribution width Auto (Bld) [Entitic vol]18.26 % 0.00-20.00[facility] HospitalMonocytes Auto (Bld) [#/Vol]Ordered By: Lambert Blanc on 98-50-7639Xrzqitekp (Bld) [#/Vol]0.8 10*3/uL0.0-0.8[facility] HospitalMonocytes/100 WBC Auto (Bld)Ordered By: Lambert Blanc on 80-28-7319Ofxbvxhfs/100 WBC (Bld)6.3 %.[facility] Neutrophils Auto (Bld) [#/Vol]Ordered By: Lambert Blanc on 63-81-5304Lymuxankjrg (Bld) [#/Vol]10.7 10*3/uL1.8-7.7FWyandot Memorial HospitalNeutrophils/100 WBC Auto (Bld)Ordered By: Lambert Blanc on 86-65-2871Juhowgkzilz/100 WBC (Bld) 90.3 %.[facility] HospitalNo Panel InformationOrdered By: Lambert Blanc on 27-75-4265Mmiiwnpxx GFR ()11 mL/MinNorwalk Memorial HospitalComment on above:GFR estimated reference range: According to KDOQI guidelines, <60 ml/min/1.73m2 is sufficient todiagnose a patient with chronic kidney disease.Pharmacy Creatinine Clearance (Chem16.32Norwalk [facility] HospitalNucleated erythrocytes [Presence] in Blood by Automated count Ordered By: Lambert Blanc on 25-76-2879Ntcoiqdie RBC Auto Ql (Bld)0.1 /100{WBC} 0-0.5FWyandot Memorial HospitalPlatelet mean volume Auto (Bld) [Entitic vol]Ordered By: Lambert Blanc on 26-70-6190Lkuigffl mean volume (Bld) [Entitic vol]9.6 fL6.6-10.1FWyandot Memorial HospitalPlatelets Auto (Bld) [#/Vol] Ordered By: Lambert Blanc on 03-13-6446Bluprpunx (Bld) [#/Vol]189 10*3/bI087-828 [facility] HospitalProtein [Mass/volume] in Serum or PlasmaOrdered By: Lambert Blanc on 55-31-3788Vuzhtmc [Mass/Vol]7.2 g/dL6.1-7.9[facility] HospitalRBC Auto (Bld) [#/Vol]Ordered By: Lambert Blanc on 95-67-6081UEG (Bld) [#/Vol]3.79 10*6/uL3.90-5.60[facility] Hospitalerum or plasma alanine aminotransferase measurement without P-5'-P (enzymatic activiOrdered By: Lambert Blanc on 51-29-5125WTB No additional P-5'-P [Catalytic activity/Vol]30 U/L74-53NjplzrrydMercy Health Clermont Hospitalerum or plasma albumin/globulin mass ratioOrdered By: Lambert Blanc on 05-05-2022 Albumin/Globulin [Mass ratio]0.6 {ratio}[facility] Hospitalerum or plasma alkaline phosphatase measurement (enzymatic activity/volume)Ordered By: Lambert Blanc on 67-89-5866VWU [Catalytic activity/Vol]167 U/B48-43QjtfexqelMercy Health Clermont Hospitalerum or plasma anion gap determinationOrdered By: Lambert Blanc on 56-45-5240Cxqgl gap [Moles/Vol]14.1 mmol/L6.0-15.0[facility] Hospitalerum or plasma aspartate aminotransferase measurement (enzymatic activity/volume)Ordered By: Lambert Blanc on 09-96-3072CND [Catalytic activity/Vol]45 U/P17-20SclfjhoeyMercy Health Clermont Hospitalerum or plasma calcium measurement (mass/volume)Ordered By: Lambert Blanc on 53-47-7723Wbxuwqe [Mass/Vol] 7.8 mg/dL8.2-10.2FMedina Hospitalerum or plasma chloride measurement (moles/volume)Ordered By: Lambert Blanc on 55-86-4833Xcghqdqd [Moles/Vol]105 mmol/E15-699JncdqxbjoMercy Health Clermont Hospitalerum or plasma glucose measurement (mass/volume)Ordered By: Lambert Blanc on 67-97-3969Sxjnmzc [Mass/Vol]106 mg/hY68-966YjxeulpsrNorwalk Memorial HospitalComment on above:ADA recommended reference rangeRandom Glucose Reference Range is dependent on time and content of last meal. Glucose of more than 200 mg/dL in a nonstressed, ambulatory subject supports the diagnosisof Diabetes Mellitus.Serum or plasma potassium measurement (moles/volume)Ordered By: Lambert Blanc on 05-05-2022 Potassium [Moles/Vol]4.1 mmol/L3.5-5.1FMedina Hospitalerum or plasma sodium measurement (moles/volume)Ordered By: Lambert Blanc on 05-05-2022 Sodium [Moles/Vol]132 mmol/B922-617AtuubiqknMercy Health Clermont Hospitalerum or plasma total bilirubin measurement (mass/volume)Ordered By: Lambert Blanc on 29-33-0330Kkcnnynfv [Mass/Vol]0.9 mg/dL0.3-1.2FWyandot Memorial Hospital Serum or plasma total carbon dioxide measurement (moles/volume)Ordered By: Lambert Blanc on 79-11-9787VG0 [Moles/Vol]17.0 mmol/L22.0-30.0[facility] Hospitalerum or plasma urea nitrogen measurement (mass/volume)Ordered By: Lambert Blanc on 48-07-1132Ohcu nitrogen [Mass/Vol]91 mg/dL9-23Nor[facility] HospitalWBC Auto (Bld) [#/Vol]Ordered By: Lambert Blanc on 29-48-5440WZK (Bld) [#/Vol]11.9 10*3/uL4.1-10.5FWyandot Memorial HospitalCBC AUTO DIFF on 58-11-8647NVNO #0.0 103/ulNormal0.0-0.1The [facility] CenterComment on above: Performed By: #### VITAD, FERR, FETIBC, B12FOL #### [facility] [address] [place] [address] Dr. Shilo LamBasophils/100 WBC (Bld)0.2 %Normal0.2-2.0The [facility] Comment on above:Performed By: #### VITAD, FERR, FETIBC, B12FOL #### [facility] [address] [place] [address] [address] Shilo Antonio #0.0 103/ulNormal0.0-0.7The [facility] CenterComment on above: Performed By: #### VITAD, FERR, FETIBC, B12FOL #### [facility] [address] [place] [address] [address] Shilo Woodwardosinophils/100 WBC (Bld)0.1 %Critically low0.9-7.0The [facility] CenterComment on above:Performed By: #### VITAD, FERR, FETIBC, B12FOL #### [facility] [address] [place] [address] [address] Shilo Woodwardrythrocyte distribution width (RBC) [Ratio]13.2 %Xlrwgu41.0-15.0 The [facility] CenterComment on above:Performed By: #### VITAD, FERR, FETIBC, B12FOL #### [facility] [address] [place] [address] Dr. Shilo LamHematocrit (Bld) [Volume fraction]32.2 %Critically low42.0-54.0 The [facility] CenterComment on above:Performed By: #### VITAD, FERR, FETIBC, B12FOL #### [facility] [address] [place] [address] Dr. Shilo LamHemoglobin (Bld) [Mass/Vol]10.6 g/dLCritically low14.0-18.0The [facility] CenterComment on above:Performed By: #### VITAD, FERR, FETIBC, B12FOL #### [facility] [address] [place] [address] Dr. Shilo Valladares #0.07 10e3/ulCritically high0.00-0.03The [facility] Comment on above:Performed By: #### VITAD, FERR, FETIBC, B12FOL #### [facility] [address] [place] [address] Dr. Shilo Valladares %0.5 %Normal0.0-0.5The [facility] CenterComment on above: Performed By: #### VITAD, FERR, FETIBC, B12FOL #### [facility] [address] [place] [address] Dr. Shilo Delaney #0.4 103/ulCritically low1.2-3.8The [facility] Comment on above:Performed By: #### VITAD, FERR, FETIBC, B12FOL #### [facility] [address] [place] [address] Dr. Shilo Henleyhocytes/100 WBC (Bld)2.6 %Critically low20.5-60.0The [facility] CenterComment on above:Performed By: #### VITAD, FERR, FETIBC, B12FOL #### [facility] [address] [place] [address] Dr. Shilo MarreroUAL DIFF REQNONormalThe [facility] CenterComment on above: Performed By: #### VITAD, FERR, FETIBC, B12FOL #### [facility] [address] [place] [address] Dr. Shilo LamYojana (RBC) [Entitic mass]27.7 ciBvsfoz70.9-34.0The [facility] CenterComment on above:Performed By: #### VITAD, FERR, FETIBC, B12FOL #### [facility] [address] [place] [address] Dr. Shilo Mendoza (RBC) [Mass/Vol]32.9 g/vQZlukns32.9-35.2The [facility] CenterComment on above:Performed By: #### VITAD, FERR, FETIBC, B12FOL #### [facility] [address] [place] [address] Dr. Shilo Mendoza (RBC) [Entitic vol]84.1 cLRlmuhw27.0-94.0The [facility] CenterComment on above:Performed By: #### VITAD, FERR, FETIBC, B12FOL #### [facility] [address] [place] [address] Dr. Shilo Huddleston #1.0 103/ulCritically high0.3-0.8ThMercy Health Comment on above:Performed By: #### VITAD, FERR, FETIBC, B12FOL #### [facility] [address] [place] [address] Dr. Shilo Rodriguezocytes/100 WBC (Bld)7.8 %Normal1.7-12.0[facility] Comment on above:Performed By: #### VITAD, FERR, FETIBC, B12FOL #### [facility] [address] [place] [address] Dr. Shilo Reyes #11.9 103/ulCritically high1.4-6.5ThMercy Health Comment on above:Performed By: #### VITAD, FERR, FETIBC, B12FOL #### [facility] [address] [place] [address] Dr. Shilo Graciaophils/100 WBC (Bld)88.8 %Critically high43.0-75.0The [facility] CenterComment on above:Performed By: #### VITAD, FERR, FETIBC, B12FOL #### [facility] [address] [place] [address] Dr. Shilo Brothers mean volume (Bld) [Entitic vol]11.3 fLNormal9.5-13.5The [facility] CenterComment on above:Performed By: #### VITAD, FERR, FETIBC, B12FOL #### [facility] [address] [place] [address] Dr. Shilo LamPLT219 103/vzDjljhi118-929Gru [facility] CenterComment on above: Performed By: #### VITAD, FERR, FETIBC, B12FOL #### [facility] [address] [place] [address] Dr. Shilo LamRBC3.83 106/ulCritically low4.70-6.10The [facility] CenterComment on above:Performed By: #### VITAD, FERR, FETIBC, B12FOL #### [facility] [address] [place] [address] Dr. Shilo LamWBC13.4 103/ulCritically high4.0-11.0The [facility] CenterComment on above:Performed By: #### VITAD, FERR, FETIBC, B12FOL #### [facility] [address] [place] [address] Dr. Shilo Levine 43-17-9755EOO62.4 mg/dLCritically high<=1.0The [facility] on above:Performed By: #### HH #### [facility] [address] [place] [address] Dr. Shilo Hollins 14(COMP METB)on 52-55-2695Cacgjte [Mass/Vol]2.5 g/dL Critically low3.4-5.0The [facility] Hospitalment on above:Performed By: #### HH #### [facility] [address] [place] [address] Dr. Shilo LamAlbumin/Globulin [Mass ratio]0.5 {ratio}NormalThe [facility] CenterComment on above:Performed By: #### HH #### [facility] [address] [place] [address] Dr. Shilo Sandoval [Catalytic activity/Vol]180 U/LCritically xhwx47-092Txl [facility] CenterComment on above:Performed By: #### HH #### [facility] [address] [place] [address] Dr. Shilo Ag [Catalytic activity/Vol]29 U/PNpnnai42-16Qos [facility] CenterComment on above:Performed By: #### HH #### [facility] [address] [place] [address] Dr. Shilo Renee gap [Moles/Vol]21.5 mmol/LNormalThe [facility] Comment on above:Performed By: #### HH #### [facility] [address] [place] [address] Dr. Shilo LamAST [Catalytic activity/Vol]44 U/LCritically povx66-54Gbq [facility] CenterComment on above:Performed By: #### HH #### [facility] [address] [place] [address] Dr. Shilo LamBilirubin [Mass/Vol]0.7 mg/dLNormal0.2-1.0The [facility] Comment on above:Performed By: #### HH #### [facility] [address] [place] [address] Dr. Shilo LamCalcium [Mass/Vol]8.1 mg/dLCritically low8.5-10.1The [facility] CenterComment on above:Performed By: #### HH #### [facility] [address] [place] [address] Dr. Shilo LamChloride [Moles/Vol]103 mmol/PFlyhcg99-808Ddw [facility] Comment on above:Performed By: #### HH #### [facility] [address] [place] [address] Dr. Shilo LamCO2 [Moles/Vol]19.3 mmol/LCritically low21.0-32.0The [facility] CenterComment on above:Performed By: #### HH #### [facility] [address] [place] [address] Dr. Shilo LamCreatinine [Mass/Vol]6.10 mg/dLCritically high0.70-1.30Mercy HealthComment on above:Performed By: #### HH #### [facility] [address] [address] [address] Shilo WoodwardGFR-AF DGQBNWNS81 mL/min/1.50j3Nahexgkxdg low>=60The [facility] CenterComment on above:Performed By: #### HH #### [facility] [address] [address] [address] Shilo WoodwardGFR-NON AF PTTUWBKQ41 mL/min/1.53a0Muvpilrboi low>=60The [facility] CenterComment on above:Performed By: #### HH #### [facility] [address] [place] [address] Dr. Shilo LamGlobulin (S) [Mass/Vol]5.1 g/dLNormalThMercy HealthComment on above:Performed By: #### HH #### [facility] [address] [address] [address] Shilo LamGlucose [Mass/Vol]95 mg/cUXltnjm02-298VerMercy Health Comment on above:Performed By: #### HH #### [facility] [address] [place] [address] Dr. Shilo LamPotassium [Moles/Vol]4.8 mmol/LNormal3.5-5.1[facility] Comment on above:Performed By: #### HH #### [facility] [address] [address] [address] Shilo LamProtein [Mass/Vol]7.6 g/dLNormal6.4-8.2The [facility] Comment on above:Performed By: #### HH #### [facility] [address] [place] [address] Dr. Shilo LamSodium [Moles/Vol]139 mmol/VZkxsup465-693KxjMercy Health Comment on above:Performed By: #### HH #### [facility] [address] [address] [address] Shilo LamUrea nitrogen [Mass/Vol]91.0 mg/dLCritically high7.0-18.0The [facility] CenterComment on above:Performed By: #### HH #### [facility] [address] [place] [address] Dr. Shilo LamUrea nitrogen/Creatinine [Mass ratio]14.9 mg/mgNormalThe [facility] CenterComment on above:Performed By: #### HH #### [facility] [address] [place] [address] Dr. Shilo LamSED RATE WESTERGRENon 92-04-8633KTH BZSU604 mm/hrCritically high <=20The [facility] CenterComment on above:Performed By: #### SEDR #### [facility] [address] [place] [address] Dr. Shilo LamPTH INTACTon 67-09-2083PFB, Hyldor87 pg/mLCritically ames70-07Fpl [facility] CenterComment on above:Performed By: #### FREELIT #### [facility] [address] [place] [address] Dr. Shilo LamHEMOGRAM AND PLATELon 58-06-2758Azvebyqrlk (Bld) [Volume fraction]35.3 %Critically low42.0-54.0The [facility] CenterComment on above: Performed By: #### HH #### [facility] [address] [place] [address] Dr. Shilo LamHemoglobin (Bld) [Mass/Vol]11.0 g/dLCritically low14.0-18.0The [facility] CenterComment on above:Performed By: #### HH #### [facility] [address] [place] [address] Dr. Shilo MendozaH (RBC) [Entitic mass]28.2 vxBpwtml28.9-34.0The [facility] CenterComment on above:Performed By: #### HH #### [facility] [address] [place] [address] Dr. Shilo Mendoza (RBC) [Mass/Vol]31.2 g/aVQrucyu75.9-35.2The [facility] CenterComment on above:Performed By: #### HH #### [facility] [address] [place] [address] Dr. Shilo MendozaV (RBC) [Entitic vol]90.5 bOErhrdf42.0-94.0The [facility] CenterComment on above:Performed By: #### HH #### [facility] [address] [place] [address] Dr. Shilo LamPLT161 103/byStpljh594-226Ecl [facility] CenterComment on above: Performed By: #### HH #### [facility] [address] [place] [address] Dr. Shilo LamRBC3.90 106/ulCritically low4.70-6.10The [facility] CenterComment on above:Performed By: #### HH #### [facility] [address] [place] [address] Dr. Shilo LamWBC7.0 103/ulNormal4.0-11.0The [facility] CenterComment on above: Performed By: #### HH #### [facility] [address] [place] [address] Dr. Shilo LamPHOSPHORUSon 36-95-4785Jsmiamqxn [Mass/Vol]5.6 mg/dLCritically high2.6-4.7The [facility] CenterComsturgis hospital on above:Performed By: #### JULIO CESAR #### [facility] [address] [place] [address] Dr. Shilo LamPROF 14(COMP METB)on 11-66-1954Rrrwylr [Mass/Vol]2.6 g/dL Critically low3.4-5.0The [facility] CenterComment on above:Performed By: #### JULIO CESAR #### [facility] [address] [place] [address] Dr. Shilo LamAlbumin/Globulin [Mass ratio]0.5 {ratio}NormalThe [facility] CenterComment on above:Performed By: #### JULIO CESAR #### [facility] [address] [place] [address] Dr. Shilo Sandoval [Catalytic activity/Vol]190 U/LCritically rcum73-212Zdi [facility] CenterComment on above:Performed By: #### JULIO CESAR #### [facility] [address] [address] [address] Shilo Ag [Catalytic activity/Vol]21 U/AZqkpuw33-85Zce [facility] CenterComment on above:Performed By: #### JULIO CESAR #### [facility] [address] [address] [address] Shilo Galvinon gap [Moles/Vol]17.3 mmol/LNormalThe [facility] Comment on above:Performed By: #### JULIO CESAR #### [facility] [address] [address] [address] Shilo LamAST [Catalytic activity/Vol]28 U/USmlbkz93-11Wcb [facility] CenterComment on above:Performed By: #### JULIO CESAR #### [facility] [address] [address] [address] Shilo LamBilirubin [Mass/Vol]0.6 mg/dLNormal0.2-1.0The [facility] Comment on above:Performed By: #### JULIO CESAR #### [facility] [address] [address] [address] Shilo LamCalcium [Mass/Vol]7.8 mg/dLCritically low8.5-10.1The [facility] CenterComment on above:Performed By: #### JULIO CESAR #### [facility] [address] [address] [address] Shilo LamChloride [Moles/Vol]103 mmol/INvlsgn50-848Bzv [facility] Comment on above:Performed By: #### JULIO CESAR #### [facility] [address] [address] [address] Shilo LamCO2 [Moles/Vol]21.5 mmol/OXqlhjd91.0-32.0The [facility] Comment on above:Performed By: #### JULIO CESAR #### [facility] [address] [address] [address] Shilo LamCreatinine [Mass/Vol]5.86 mg/dLCritically high0.70-1.30The [facility]ment on above:Performed By: #### FREELIT #### [facility] [address] [address] [address] Lao ChangEGFR-AF RQVTGKGU72 mL/min/1.27a3Dmpbnapdys low>=60The [facility] CenterComment on above:Performed By: #### FREELIT #### [facility] [address] [address] [address] Shilo WoodwardGFR-NON AF NMWQBZDP71 mL/min/1.93w3Nayodlvuaz low>=60The [facility] CenterComment on above:Performed By: #### FREELIT #### [facility] [address] [place] [address] Dr. Shilo LamGlobulin (S) [Mass/Vol]4.8 g/dLNormalThe [facility] CenterComment on above:Performed By: #### FREELIT #### [facility] [address] [place] [address] Dr. Shilo LamGlucose [Mass/Vol]107 mg/dLCritically ngfh92-424Gpp [facility] on above:Performed By: #### FREELIT #### [facility] [address] [place] [address] Dr. Shilo LamPotassium [Moles/Vol]3.8 mmol/LNormal3.5-5.1The [facility] Comment on above:Performed By: #### FREELIT #### [facility] [address] [place] [address] Dr. Shilo LamProtein [Mass/Vol]7.4 g/dLNormal6.4-8.2The [facility] Comment on above:Performed By: #### FREELIT #### [facility] [address] [place] [address] Dr. Shilo LamSodium [Moles/Vol]138 mmol/ICukcvw871-544Zwv [facility] Comment on above:Performed By: #### FREELIT #### [facility] [address] [address] [address] Shilo Armendariz nitrogen [Mass/Vol]75.0 mg/dLCritically high7.0-18.0Mercy HealthComment on above:Performed By: #### FREELIT #### [facility] [address] [place] [address] Dr. Shilo Armendariz nitrogen/Creatinine [Mass ratio]12.8 mg/mgNormalThe [facility] CenterComment on above:Performed By: #### FREECLARISSAT #### [facility] [address] [place] [address] Dr. Shilo Ibrahim RANDOMon 35-24-9622Tonxhqxdy Ql (U)NegativeNormalNEGATIVEMercy HealthComment on above:Performed By: #### UA #### [facility] [address] [place] [address] Dr. Shilo LamClarity (U)CLEARNormalCLEARMercy HealthComment on above: Performed By: #### UA #### [facility] [address] [place] [address] Dr. Shilo Devine (U)LT. YELLOWNormalYELLOWMercy HealthComsturgis hospital on above:Performed By: #### UA #### [facility] [address] [place] [address] Dr. Shilo LamGlucose Ql (U)NegativeNormalNEGATIVEMercy HealthComment on above:Performed By: #### UA #### [facility] [address] [place] [address] Dr. Shilo LamHemoglobin Ql (U)NegativeNormalNEGATIVESelect Medical [facility] on above:Performed By: #### UA #### [facility] [address] [place] [address] Dr. Shilo LamKetones Ql (U)NegativeNormalNEGATIVEMercy HealthComment on above:Performed By: #### UA #### [facility] [address] [place] [address] Dr. Shilo LamLEUKOCYTESNegativeNormalNEGATIVEThe [facility] CenterComment on above:Performed By: #### UA #### [facility] [address] [address] [address] Shilo Newman Ql (U)NegativeNormalNEGATIVEThe [facility] CenterComment on above:Performed By: #### UA #### [facility] [address] [address] [address] Shilo LampH (U)5.5 [pH]Normal5-9The [facility] CenterComment on above: Performed By: #### UA #### [facility] [address] [place] [address] Dr. Shilo LamSPEC GRAVITY1.166Ivcaga3.005-<=1.025The [facility] CenterComment on above:Performed By: #### UA #### [facility] [address] [place] [address] Dr. Shilo Ibrahim PYQGKGS564 mg/dlAbnormalNEGATIVE/ TRACEThe [facility] Comment on above:Performed By: #### UA #### [facility] [address] [place] [address] Dr. Shilo Toscano Qn (U)0.2 {Gama'U}/dLNormal0.2 - 1.0The [facility] CenterComment on above:Performed By: #### UA #### [facility] [address] [place] [address] Dr. Shilo Reeves T PROTEIN CREAT RATIOon 86-47-7658Oorpwgv (U) [Mass/Vol] 210.0 mg/dLCritically high<=12.0The [facility] CenterComment on above:Performed By: #### HH #### [facility] [address] [place] [address] Dr. Shilo Bourne PROT CREAT RAT5.36NormalThe [facility] CenterComment on above: Performed By: #### HH #### [facility] [address] [place] [address] Dr. Shilo Reeves CREAT39.20 mg/xUAvnqfj64.00-300.00The [facility] Comment on above:Performed By: #### HH #### [facility] [address] [address] [address] Shilo LamVITAMIN D 25 OHon 52-86-5578HUD D 25-OH18.9 ng/mLNormalMercy HealthComsturgis hospital on above:Performed By: #### ECTORT #### [facility] [address] [address] [address] Shilo Granger D RANGES[place] BELOWNoKing's Daughters Medical Center OhioComment on above: Result Comment: <20 ng/mL Vit D deficient 20 - <30 ng/mL Vit D insufficient 30 - 100 ng/mL Vit D sufficient >100 ng/mL Potential ToxicityPerformed By: #### ECTORT #### [facility] [address] [place] [address] Dr. Sh[facility]HA[facility] W Auto Differential panel (Bld)on 30-17-7000Cmqnkhbxm (Bld) [#/Vol]0.03 10*3/uLNormal<0.11COhio State [facility]ing [facility] on above:Order Comment: Specimen Type: BLOOD SPECIMENOrdering Facility: [facility] Address:[address] [place], [place] [address]Performed By: #### 92951-2 ####[facility] [id number] [place], [place] [address]Pqbyptiuf/100 WBC (Bld)0.5 %NormalMercy Health Perrysburg Hospital on above:Order Comment: Specimen Type: BLOOD SPECIMENOrdering Facility: [facility] Address:[address] [place], [place] [address]Performed By: #### 84375-4 ####[facility] LABCL[facility] [id number] [place] [address]Dlbfxjkdwmgu cell count method Nom (Bld)AutoNormalCOhio State Harding Hospital on above:Order Comment: Specimen Type: BLOOD SPECIMENOrdering Facility: [facility] Address:[address] [place], [place] [address]Performed By: #### 13929-8 ####[facility] LABCL[facility] [id number] [place], [place] [address]Hpkdckxcdzn (Bld) [#/Vol]0.08 10*3/uLNormal<0.46[facility] MemorialComsturgis hospital on above:Order Comment: Specimen Type: BLOOD SPECIMENOrdering Facility: [facility] Address:[address] [place], [place] [address]Performed By: #### 57141-8 ####[facility] [id number] [place] [address] Eosinophils/100 WBC (Bld)1.4 %NormalKettering Health Greene MemorialComment on above: Order Comment: Specimen Type: BLOOD SPECIMENOrdering Facility: [facility] Address:[address] [place], [place] [address]Performed By: #### 83071-4 ####[facility] LAB[facility] [id number] [place], [place] [address]Psmppvmisde distribution width (RBC) [Ratio]13.3 %Normal 11.5-15.0[facility] on above:Order Comment: Specimen Type: BLOOD SPECIMENOrdering Facility: [facility] Address:[address] [place], [place] [address]Performed By: #### 78322-1 ####[facility] [id number] [place] [address] Hematocrit (Bld) [Volume fraction]32.2 %Low39.0-51.0[facility] Comment on above:Order Comment: Specimen Type: BLOOD SPECIMENOrdering Facility: [facility] Address:[address] [place] [address] Performed By: #### 77852-6 ####[facility] [id number] [place], [place] [address]Kqdoiyxmnf (Bld) [Mass/Vol]10.5 g/dLLow13.0-17.0[facility] on above:Order Comment: Specimen Type: BLOOD SPECIMENOrdering Facility: [facility] Address:[address] [place], [place] [address]Performed By: #### 03128-3 ####[facility] [id number] [place], [place] [address]Rwotghyw granulocytes (Bld) [#/Vol]10*3/uLNormal<0.10 [facility] on above:Order Comment: Specimen Type: BLOOD SPECIMENOrdering Facility: [facility] Address:[address] [place], [place] [address]Performed By: #### 86178-9 ####[facility] [id number] [place], [place] [address]Gtnpkuqs granulocytes/100 WBC (Bld)0.2 %[facility] on above: Order Comment: Specimen Type: BLOOD SPECIMENOrdering Facility: [facility] Address:[address] [place], [place] [address]Performed By: #### 12935-1 ####[facility] [id number] [place], [place] [address]Lqqzblypazi (Bld) [#/Vol]0.64 10*3/uLLow1.00-4.00 [facility] on above:Order Comment: Specimen Type: BLOOD SPECIMENOrdering Facility: [facility] Address:[address] [place], [place] [address]Performed By: #### 59044-7 ####[facility] [id number] [place] [address] Lymphocytes/100 WBC (Bld)11.0 %NormalMercy Health Perrysburg Hospital on above: Order Comment: Specimen Type: BLOOD SPECIMENOrdering Facility: [facility] Address:[address] [place], [place] [address]Performed By: #### 16646-0 ####[facility] [id number] [place], [place] [address]TPR (RBC) [Entitic mass]29.0 bwHfkrqn22.0-34.0[facility] on above:Order Comment: Specimen Type: BLOOD SPECIMENOrdering Facility: [facility] Address:[address] [place], [place] [address]Performed By: #### 20032-4 ####[facility] [id number] [place], [place] [address]ETGG (RBC) [Mass/Vol]32.6 g/fYDsqexk14.5-36.0[facility] on above:Order Comment: Specimen Type: BLOOD SPECIMENOrdering Facility: [facility] Address:[address] [place], [place] [address]Performed By: #### 18323-5 ####[facility] [id number] [place], [place] [address]BHR (RBC) [Entitic vol]89.0 sLDutksl48.0-100.0 [facility] on above:Order Comment: Specimen Type: BLOOD SPECIMENOrdering Facility: [facility] Address:[address] [place], [place] [address]Performed By: #### 95409-5 ####[facility] [id number] [place], [place] [address]Ytrsfqqsg (Bld) [#/Vol]0.62 10*3/uLNormal<0.87[facility] on above: Order Comment: Specimen Type: BLOOD SPECIMENOrdering Facility: [facility] Address:[address] [place], [place] [address]Performed By: #### 03939-7 ####[facility] [id number] [place], [place] [address]Zhqhlfawk/100 WBC (Bld)10.7 %NormalMercy Health Perrysburg Hospital on above:Order Comment: Specimen Type: BLOOD SPECIMENOrdering Facility: [facility] Address:[address] [place], [place] [address]Performed By: #### 63109-9 ####[facility] [id number] [place], [place] [address]Ekqmmnuncwj (Bld) [#/Vol]4.44 10*3/uLNormal1.45-7.50[facility] on above: Order Comment: Specimen Type: BLOOD SPECIMENOrdering Facility: [facility] Address:[address] [place], [place] [address]Performed By: #### 67890-2 ####[facility] [id number] [place], [place] [address]Erbgitplcuw/100 WBC (Bld)76.2 %NormalMercy Health Perrysburg Hospital on above:Order Comment: Specimen Type: BLOOD SPECIMENOrdering Facility: [facility] Address:[address] [place], [place] [address]Performed By: #### 07694-3 ####[facility] [id number] [place], [place] [address]Fsvsripdd RBC (Bld) [#/Vol]10*3/uLNormal<0.01[facility] on above:Order Comment: Specimen Type: BLOOD SPECIMENOrdering Facility: [facility] Address:[address] [place], [place] [address]Performed By: #### 93520-7 ####[facility] [id number] [place], [place] [address]Bqlrsvbbu RBC/100 WBC (Bld) [Ratio]0.0 /100 WBCNormal [facility] on above:Order Comment: Specimen Type: BLOOD SPECIMENOrdering Facility: [facility] Address:[address] [place], [place] [address]Performed By: #### 35275-6 ####[facility] [id number] [place], [place] [address]Ucwhwcoi mean volume (Bld) [Entitic vol]11.5 fLNormal9.0-12.7CLake [facility] Comment on above:Order Comment: Specimen Type: BLOOD SPECIMENOrdering Facility: [facility] Address:[address] [place] [address] Performed By: #### 19795-7 ####[facility]CL[facility] [id number] [place], [place] [address]Bsntwahsl (Bld) [#/Vol]136 10*3/rWKzg659-417JvynrmrilMercy Health Perrysburg Hospital on above:Order Comment: Specimen Type: BLOOD SPECIMENOrdering Facility: [facility] Address:[address] [place], [place] [address]Performed By: #### 15527-6 ####[facility] [id number] [place], [place] [address]XVD (Bld) [#/Vol]3.62 10*6/uLLow4.20-6.00[facility] MemorialComment on above:Order Comment: Specimen Type: BLOOD SPECIMENOrdering Facility: [facility] Address:[address] [place], [place] [address]Performed By: #### 70992-7 ####[facility] [id number] [place], [place] [address]NAN (Bld) [#/Vol]5.82 10*3/uLNormal3.70-11.00[facility] on above:Order Comment: Specimen Type: BLOOD SPECIMENOrdering Facility: [facility] Address:[address] [place], [place] [address]Performed By: #### 79065-0 ####[facility] [id number] [place], [place] [address]CVUFMJoj 50-95-3253ZDUOQVXbeqz (SP) Office (HEMAS[place]) MILANGOPAL BATES JR ([id number]) 1965 M Date Time Provider Department 04/16/22 3:30 PM MONIK DOTSON During your visit today, we recorded the following information about you: Temperature Pulse Respiration Blood pressure 97 degrees 59/minute 18/minute 136/61 Weight Height 89.8 kg 1.93 m Monik Dotson APRN.[employer] 04/16/2022 3:56 PM Signed NAME: Gopal Yates CLINIC NO.: [id number] DATE OF SERVICE: April 16, 2022 (Imer) Some elements in this clinic note that are critical to medical decision making have been carefully reviewed and included from a prior clinic note dated: February 18, 2022. (Dr. Rojas) Referring Provider: Dr. Douglas Juárez Additional Clinicians involved in Gopal Yates JR's care: DIAGNOSIS: Elevated [place]: Lambda light chains CKD induced anemia ASSESSMENT: [...] bruising. 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 Overall, he is doing [...] [place] [facility] Visit, October 02, 2021: Gopal Yates [...] (Sulfonamide * Unknown MEDICA (more content not included)...NormalKettering Health [facility] Memorial Comprehensive metabolic 2000 panelon 43-60-0483Ljvlwgk [Mass/Vol]3.7 g/dLLow 3.9-4.9COhio State [facility]ing [facility] on above:Order Comment: Specimen Type: BLOOD SPECIMEN [facility] Address: [address] [place], [place] [address]Performed By: #### 62015-7 #### PAULINAOHBRANDY [facility] CLIA [id number] [address] [place], [place] [address]HIO [Catalytic activity/Vol]195 U/RYtyg09-389IhpbxlneiMercy Health Perrysburg Hospital on above:Order Comment: Specimen Type: BLOOD SPECIMEN [facility] Address: [address] [place], [place] [address]Performed By: #### 52903-7 #### [facility] CLIA [id number] [address] [place] [address]VXS [Catalytic activity/Vol]20 U/RDlxfue37-28RohjsyqbeMercy Health Perrysburg Hospital on above:Order Comment: Specimen Type: BLOOD SPECIMEN [facility] Address: [address] [place], [place] [address]Performed By: #### 69335-2 #### [facility] H[facility]ITALBRANDY [facility] CLIA [id number] [address] [place], [place] [address]Ujjir gap [Moles/Vol]13 mmol/LNormal9-18[facility] on above:Order Comment: Specimen Type: BLOOD SPECIMEN [facility] Address: [address] [place], [place] [address]Performed By: #### 60818-3 #### [facility] CLIA [id number] [address] [place], [place] [address]EJG [Catalytic activity/Vol]16 U/KZawxfu12-23JyhuvasbqMercy Health [facility]sburg Hospital on above:Order Comment: Specimen Type: BLOOD SPECIMEN [facility] Address: [address] [place], [place] [address]Performed By: #### 69654-0 #### [facility] CLIA [id number] [address] [place] [address]Faklqqdzc [Mass/Vol]0.5 mg/dLNormal0.2-1.3COhio State [facility]ing Hospital on above:Order Comment: Specimen Type: BLOOD SPECIMEN [facility] Address: [address] [place], [place] [address]Performed By: #### 33421-5 #### [facility] CLIA [id number] [address] [place] [address]Xbbwmrl [Mass/Vol]8.1 mg/dLLow8.5-10.2COhio State [facility]ing Hospital on above:Order Comment: Specimen Type: BLOOD SPECIMEN [facility] Address: [address] [place], [place] [address]Performed By: #### 59323-1 #### [facility] CLIA [id number] [address] [place] [address]Piknicmd [Moles/Vol]112 mmol/FDaso59-617BbxzpghgiMercy Health Perrysburg Hospital on above:Order Comment: Specimen Type: BLOOD SPECIMEN [facility] Address: [address] [place], [place] [address]Performed By: #### 81527-3 #### [facility] CLIA [id number] [address] [place] [address]DM4 [Moles/Vol]17 mmol/RYfg05-16LzzbdywleKettering Health Greene Memorial Comment on above:Order Comment: Specimen Type: BLOOD SPECIMEN [facility] Address: [address] [place], [place] [address]Performed By: #### 46895-2 #### [facility] CLIA [id number] [address] [place] [address]Qlayltgxmq [Mass/Vol]4.53 mg/dLHigh0.73-1.22[facility] on above:Order Comment: Specimen Type: BLOOD SPECIMEN [facility] Address: [address] [place], [place] [address]Performed By: #### 62377-4 #### [facility] CLIA [id number] [address] [place], [place] [address]JCOIGPHSQ GLOMERULAR FILTRATION RATE14 mL/min/1.73m???Low>=60 [facility] MemorialComment on above:Order Comment: Specimen Type: BLOOD SPECIMEN [facility] Address: [address] [place], [place] [id number] Comment: Estimated Glomerular Filtration Rate (eGFR) is calculated using the 2020 CKD-EPI cre atinine equation. This equation utilizes serum creatinine, sex, and age as parameters. The creatinine assay has traceable calibration to isotope dilution- mass spectrometry. Refer to KDIGO guidelines for clinical interpretation. In patients with unstable renal function, e.g. those with acute kidney injury, the eGFR may not accurately reflect actual GFR.Performed By: #### 61168-1 #### [facility] CLIA [id number] [address] [place] [address]Jsscrjx [Mass/Vol]146 mg/lXHwxr87-49PcprntlibKettering Health Greene Memorial Comment on above:Order Comment: Specimen Type: BLOOD SPECIMEN [facility] Address: [address] [place], [place] [address]Result Comment: The [place] [employer] (ADA) provides guidance for cutoff [...] Standards of Medical Care in Diabetes 2016, [place] [employer]. Diabetes Care. 2016.39(Suppl 1).Performed By: #### 14401-2 #### [facility] CLIA [id number] [address] [place] [address]Guxbinzjn [Moles/Vol]4.2 mmol/LNormal3.7-5.1COhio State Harding Hospital on above:Order Comment: Specimen Type: BLOOD SPECIMEN [facility] Address: [address] [place], [place] [address]Performed By: #### 32303-4 #### [facility] CLIA [id number] [address] [place] [address]Xuywibc [Mass/Vol]7.0 g/dLNormal6.3-8.0[facility] on above:Order Comment: Specimen Type: BLOOD SPECIMEN [facility] Address: [address] [place], [place] [address]Performed By: #### 87246-2 #### [facility] CLIA [id number] [address] [place] [address]Hsdppy [Moles/Vol]142 mmol/NYaocbb239-319HfvwkowvoMercy Health Perrysburg Hospital on above:Order Comment: Specimen Type: BLOOD SPECIMEN [facility] Address: [address] [place], [place] [address]Performed By: #### 32501-2 #### [facility] CLIA [id number] [address] [place] [address]Pgin nitrogen [Mass/Vol]81 mg/dLHigh9-24[facility] on above:Order Comment: Specimen Type: BLOOD SPECIMEN [facility] Address: [address] [place], [place] [address]Performed By: #### 74890-3 #### [facility] CLIA [id number] [address] [place] [address]YUT W Auto Differential panel (Bld)on 35-39-7181Dscmlboop (Bld) [#/Vol]10*3/uLNormal<0.11COhio State [facility]ing [facility] on above:Order Comment: Specimen Type: BLOOD SPECIMENOrdering Facility: [facility] Address:[address] [place], [place] [address]Performed By: #### 96261-0 ####[facility] LABCLIA [id number] [place], [place] [address]Tlnlfpiww/100 WBC (Bld)0.4 %NormalMercy Health Perrysburg Hospital on above:Order Comment: Specimen Type: BLOOD SPECIMENOrdering Facility: [facility] Address:[address] [place], [place] [address]Performed By: #### 11257-3 ####[facility] LABIA [id number] [place], [place] [address]Bgopcrimgwhg cell count method Nom (Bld)AutoNormalCOhio State Harding Hospital on above:Order Comment: Specimen Type: BLOOD SPECIMENOrdering Facility: [facility] Address:[address] [place], [place] [address]Performed By: #### 91469-4 ####[facility]IA [id number] [place], [place] [address]Qugcfdqmlxi (Bld) [#/Vol]0.11 10*3/uLNormal<0.46[facility] on above:Order Comment: Specimen Type: BLOOD SPECIMENOrdering Facility: [facility] Address:[address] [place], [place] [address]Performed By: #### 33858-1 ####[facility] [id number] [place] [address] Eosinophils/100 WBC (Bld)2.2 %NormalMercy Health Perrysburg Hospital on above: Order Comment: Specimen Type: BLOOD SPECIMENOrdering Facility: [facility] Address:[address] [place], [place] [address]Performed By: #### 86509-9 ####[facility] [id number] [place], [place] [address]Cmqhyhwcqxy distribution width (RBC) [Ratio]14.6 %Normal 11.5-15.0[facility] on above:Order Comment: Specimen Type: BLOOD SPECIMENOrdering Facility: [facility] Address:[address] [place], [place] [address]Performed By: #### 98611-6 ####[facility] [id number] [place] [address] Hematocrit (Bld) [Volume fraction]31.4 %Low39.0-51.0[facility] Comment on above:Order Comment: Specimen Type: BLOOD SPECIMENOrdering Facility: [facility] Address:[address] [place] [address] Performed By: #### 42043-9 ####[facility] [id number] [place], [place] [address]Wkquswhrws (Bld) [Mass/Vol]10.0 g/dLLow13.0-17.0[facility] MemorialComsturgis hospital on above:Order Comment: Specimen Type: BLOOD SPECIMENOrdering Facility: [facility] Address:[address] [place], [place] [address]Performed By: #### 96777-3 ####[facility] [id number] [place], [place] [address]Caftzzix granulocytes (Bld) [#/Vol]10*3/uLNormal<0.10 [facility] MemorialComment on above:Order Comment: Specimen Type: BLOOD SPECIMENOrdering Facility: [facility] Address:[address] [place], [place] [address]Performed By: #### 94538-1 ####[facility] LABCLIA [id number] [place], [place] [address]Hiqpnofs granulocytes/100 WBC (Bld)0.2 %NormalMercy Health Perrysburg Hospital on above: Order Comment: Specimen Type: BLOOD SPECIMENOrdering Facility: [facility] Address:[address] [place], [place] [address]Performed By: #### 14739-8 ####[facility] LABCLIA [id number] [place], [place] [address]Acymrzeiddm (Bld) [#/Vol]0.68 10*3/uLLow1.00-4.00 [facility] on above:Order Comment: Specimen Type: BLOOD SPECIMENOrdering Facility: [facility] Address:[address] [place], [place] [address]Performed By: #### 47131-5 ####[facility] LABCLIA [id number] [place] [address] Lymphocytes/100 WBC (Bld)13.4 %NormalMercy Health Perrysburg Hospital on above: Order Comment: Specimen Type: BLOOD SPECIMENOrdering Facility: [facility] Address:[address] [place], [place] [address]Performed By: #### 96630-5 ####[facility] LABCLIA [id number] [place], [place] [address]KOE (RBC) [Entitic mass]28.4 hnHvjngt27.0-34.0[facility] on above:Order Comment: Specimen Type: BLOOD SPECIMENOrdering Facility: [facility] Address:[address] [place], [place] [address]Performed By: #### 86784-2 ####[facility]CLIA [id number] [place], [place] [address]CEEX (RBC) [Mass/Vol]31.8 g/rRFtzvug02.5-36.0[facility] on above:Order Comment: Specimen Type: BLOOD SPECIMENOrdering Facility: [facility] Address:[address] [place], [place] [address]Performed By: #### 79650-7 ####[facility] LABCLIA [id number] [place], [place] [address]GPF (RBC) [Entitic vol]89.2 vJLpuuke88.0-100.0 [facility] on above:Order Comment: Specimen Type: BLOOD SPECIMENOrdering Facility: [facility] Address:[address] [place], [place] [address]Performed By: #### 45628-5 ####[facility] [id number] [place], [place] [address]Coeaebyyu (Bld) [#/Vol]0.67 10*3/uLNormal<0.87[facility] on above: Order Comment: Specimen Type: BLOOD SPECIMENOrdering Facility: [facility] Address:[address] [place], [place] [address]Performed By: #### 00153-2 ####[facility] LABCLIA [id number] [place], [place] [address]Ocwunboap/100 WBC (Bld)13.2 %NormalMercy Health Perrysburg Hospital on above:Order Comment: Specimen Type: BLOOD SPECIMENOrdering Facility: [facility] Address:[address] [place], [place] [address]Performed By: #### 81166-3 ####[facility] [id number] [place], [place] [address]Ayecqjwhkil (Bld) [#/Vol]3.60 10*3/uLNormal1.45-7.50[facility] on above: Order Comment: Specimen Type: BLOOD SPECIMENOrdering Facility: [facility] Address:[address] [place], [place] [address]Performed By: #### 62018-6 ####[facility] LABCLIA [id number] [place], [place] [address]Xqhbrrqward/100 WBC (Bld)70.6 %NormalMercy Health Perrysburg Hospital on above:Order Comment: Specimen Type: BLOOD SPECIMENOrdering Facility: [facility] Address:[address] [place], [place] [address]Performed By: #### 98695-3 ####[facility] [id number] [place], [place] [address]Hvynhcvzy RBC (Bld) [#/Vol]10*3/uLNormal<0.01[facility] on above:Order Comment: Specimen Type: BLOOD SPECIMENOrdering Facility: [facility] Address:[address] [place], [place] [address]Performed By: #### 80116-3 ####[facility]CL[facility] [id number] [place], [place] [address]Hfzpxirqw RBC/100 WBC (Bld) [Ratio]0.0 /100 WBCNormal [facility] on above:Order Comment: Specimen Type: BLOOD SPECIMENOrdering Facility: [facility] Address:[address] [place], [place] [address]Performed By: #### 12301-0 ####[facility]CLIA [id number] [place], [place] [address]Qkdmdnff mean volume (Bld) [Entitic vol]10.7 fLNormal9.0-12.7CLake [facility] Comment on above:Order Comment: Specimen Type: BLOOD SPECIMENOrdering Facility: [facility] Address:[address] [place] [address] Performed By: #### 23557-6 ####[facility]CLIA [id number] [place], [place] [address]Tctbcfdal (Bld) [#/Vol]130 10*3/vGOhh771-224WkqdtcnooMercy Health [facility]sburg Hospital on above:Order Comment: Specimen Type: BLOOD SPECIMENOrdering Facility: [facility] Address:[address] [place], [place] [address]Performed By: #### 32272-5 ####[facility]CL[facility] [id number] [place], [place] [address]PNN (Bld) [#/Vol]3.52 10*6/uLLow4.20-6.00[facility] on above:Order Comment: Specimen Type: BLOOD SPECIMENOrdering Facility: [facility] Address:[address] [place], [place] [address]Performed By: #### 36727-6 ####[facility]CL[facility] [id number] [place], [place] [address]OYP (Bld) [#/Vol]5.09 10*3/uLNormal3.70-11.00[facility] on above:Order Comment: Specimen Type: BLOOD SPECIMENOrdering Facility: [facility] Address:[address] [place], [place] [address]Performed By: #### 63036-9 ####[facility]CL[facility] [id number] [place], [place] [address]Orjytbebezthr metabolic 2000 panelon 46-09-8314Xhruwba [Mass/Vol]3.5 g/dLLow3.9-4.9COhio [facility] on above:Order Comment: Specimen Type: BLOOD SPECIMENOrdering Facility: [facility] Address:[address] [place], [place] [address]Performed By: #### 28072-4 ####[facility]CL[facility] [id number] [place], [place] [address]PCL [Catalytic activity/Vol]154 U/XSmyn06-035HcjavbblwMercy Health Perrysburg Hospital on above:Order Comment: Specimen Type: BLOOD SPECIMENOrdering Facility: [facility] Address:[address] [place], [place] [address]Performed By: #### 56229-2 ####[facility]CL[facility] [id number] [place], [place] [address]UTY [Catalytic activity/Vol]15 U/BEfyati12-84UnptcilyoMercy Health Perrysburg Hospital on above:Order Comment: Specimen Type: BLOOD SPECIMENOrdering Facility: [facility] Address:[address] [place], [place] [address]Performed By: #### 96474-1 ####[facility] LABCLIA [id number] ARELIS ANNEBANNER B[facility]WOOD MEDICAL CENTERJACQUIMI [place], [place] [address]Sppsv gap [Moles/Vol]11 mmol/LNormal9-18[facility] on above:Order Comment: Specimen Type: BLOOD SPECIMENOrdering Facility: [facility] Address:[address] [place], [place] [address]Performed By: #### 58160-5 ####[facility]CL[facility] [id number] [facility] [place], [place] [address]FJC [Catalytic activity/Vol]16 U/JHyminf18-56LomvnprnjMercy Health [facility]sburg Hospital on above:Order Comment: Specimen Type: BLOOD SPECIMENOrdering Facility: [facility] Address:[address] [place], [place] [address]Performed By: #### 32743-1 ####[facility] [id number] [facility] [place], [place] [address]Levpxcxpi [Mass/Vol]0.5 mg/dLNormal0.2-1.3COhio State Harding Hospital on above:Order Comment: Specimen Type: BLOOD SPECIMENOrdering Facility: [facility] Address:[address] [place], [place] [address]Performed By: #### 99370-9 ####[facility] LABCL[facility] [id number] [place] [address]Rthfhac [Mass/Vol]8.5 mg/dLNormal8.5-10.2COhio State Harding Hospital on above: Order Comment: Specimen Type: BLOOD SPECIMENOrdering Facility: [facility] Address:[address] [place], [place] [address]Performed By: #### 12012-6 ####[facility]CL[facility] [id number] [facility] ZEKE BRITTONBANNER BAYWOOD MEDICAL CENTERJACQUIMI [place], [place] [address]Szonhhuf [Moles/Vol]114 mmol/USton20-350FjsezeevyMercy Health Perrysburg Hospital on above:Order Comment: Specimen Type: BLOOD SPECIMENOrdering Facility: [facility] Address:[address] [place], [place] [address]Performed By: #### 80963-1 ####[facility]CL[facility] [id number] [place], [place] [address]DM3 [Moles/Vol]18 mmol/THrz74-36OhbrkfswrMercy Health Perrysburg Hospital on above:Order Comment: Specimen Type: BLOOD SPECIMENOrdering Facility: [facility] Address:[address] [place], [place] [address]Performed By: #### 98620-5 ####[facility] [id number] [place] [address] Creatinine [Mass/Vol]4.59 mg/dLHigh0.73-1.22[facility] on above:Order Comment: Specimen Type: BLOOD SPECIMENOrdering Facility: [facility] Address:[address] [place], [place] [address]Performed By: #### 94779-5 ####[facility] [id number] [place], [place] [address]LMBCJGYTX GLOMERULAR FILTRATION RATE14 mL/min/1.73m???Low>=60[facility] on above:Order Comment: Specimen Type: BLOOD SPECIMENOrdering Facility: [facility] Address:[address] [place], [place] [address]Result Comment: Estimated Glomerular Filtration Rate (eGFR) is calculated using the 2020 CKD-EPI cre atinine equation. This equation utilizes serum creatinine, sex, and age as parameters. The creatinine assay has traceable calibration to isotope dilution- mass spectrometry. Refer to KDIGO guidelines for clinical interpretation. In patients with unstable renal function, e.g. those with acute kidney injury, the eGFR may not accurately reflect actual GFR.Performed By: #### 29708-9 ####[facility] [id number] [place], [place] [address]Xavqolg [Mass/Vol]86 mg/rIHaalpy35-86NabawythpMercy Health Perrysburg Hospital on above:Order Comment: Specimen Type: BLOOD SPECIMENOrdering Facility: [facility] Address:[address] [place], [place] [address]Result Comment: The [place] [employer] (ADA) provides guidance for cutoff [...] Standards of Medical Care in Diabetes 2016, [place] [employer]. Diabetes Care. 2016.39(Suppl 1).Performed By: #### 90760-1 ####[facility]CL[facility] [id number] [place], [place] [address]Rjnrstuhd [Moles/Vol]4.4 mmol/LNormal3.7-5.1COhio State Harding Hospital on above:Order Comment: Specimen Type: BLOOD SPECIMENOrdering Facility: [facility] Address:[address] [place], [place] [address]Performed By: #### 44475-4 ####[facility]CL[facility] [id number] [place], [place] [address]Rmewgzj [Mass/Vol]6.8 g/dLNormal6.3-8.0[facility] on above:Order Comment: Specimen Type: BLOOD SPECIMENOrdering Facility: [facility] Address:[address] [place], [place] [address]Performed By: #### 05506-5 ####[facility]CL[facility] [id number] [place], [place] [address]Xwglbm [Moles/Vol]143 mmol/KDscybm361-827JcpvmeldwMercy Health Perrysburg Hospital on above:Order Comment: Specimen Type: BLOOD SPECIMENOrdering Facility: [facility] Address:[address] [place] [address]Performed By: #### 07224-0 ####[facility]CL[facility] [id number] [place], [place] [address]Chsa nitrogen [Mass/Vol]74 mg/dLHigh9-24[facility] on above:Order Comment: Specimen Type: BLOOD SPECIMENOrdering Facility: [facility] Address:[address] [place], [place] [address]Performed By: #### 99701-2 ####[facility]CL[facility] [id number] [place], [place] [address]Npzcxajm SerPl-mCncon 09-53-3424Dqpbsnpl [Mass/Vol]508.0 ng/uYOszzdm89.3-565.7COhio State [facility]ing Hospital on above:Order Comment: Specimen Type: BLOOD SPECIMENOrdering Facility: [facility] Address:[address] [place], [place] [address]Performed By: #### 2284-8, 2276-4, 2-9, 83303-9 ####[facility] LABCLIA [id number] [place] [address] [place] OF AMERICAFolate SerPl-mCncon 49-76-8188Yxrlzv [Mass/Vol]8.1 ng/mLNormal>4.7COhio State [facility]ing [facility] on above:Order Comment: Specimen Type: BLOOD SPECIMENOrdering Facility: [facility] Address:[address] [place], [place] [address]Performed By: #### 2284-8, 2276-4, 2-9, 90482-9 ####[facility] LABCLIA [id number] [place] [id number] [place] OF AMERICAIron and Iron binding capacity panelon 03-18-2022 Iron [Mass/Vol]63 ug/oORdceqa43-074TexwnqoukMercy Health Perrysburg Hospital on above: Order Comment: Specimen Type: BLOOD SPECIMENOrdering Facility: [facility] Address:[address] [place] [address]Zjmjmqxay By: #### 2284-8, 6-4, 2131-11, 17563-7 ####[facility] LABCLIA [id number] [place] [address] [place] Iron binding capacity [Mass/Vol]204 ug/gHZrx018-135EkbuptlttKettering Health [facility] Memorial Comment on above:Order Comment: Specimen Type: BLOOD SPECIMENOrdering Facility: [facility] Address:[address] [place] [address] Performed By: #### 2284-8, 6-, 2131-11, ####[facility] LABCLIA [id number] [place] [address] [place] AMERICAIron/TIBC [Molar ratio]30.9 %Cduhcy47.0-57.0[facility] MemorialComment on above:Order Comment: Specimen Type: BLOOD SPECIMENOrdering Facility: [facility] Address:[address] [place], [place] [address]Performed By: #### 2284-8, 6-4, 2131-11, ####[facility] LABCLIA [id number] [place] [address] [place] OF AMERICAPTH INTACTon 81-41-1097NJB, Yqobws85 pg/mL Critically tqvd15-32Zut [facility] CenterComment on above:Performed By: #### HH #### [facility] [address] [place] [address] Shilo Granger B12 SerPl-mCncon 14-86-6173Udmivtvmv (Vitamin B12) [Mass/Vol] 670 pg/xBCtngap765-5484Lxkbdpnmj Clinic ClevelandComment on above:Order Comment: Specimen Type: BLOOD SPECIMENOrdering Facility: [facility] Address:[address] [place] [address]Zgdmjerpu By: #### 2284-8, 6-, 2131-11, ####[facility] LABCLIA [id number] [place] [address] [place] AMERICAFERRITINon 50-46-8790Roomumyf [Mass/Vol]493.0 ng/mLCritically high26.0-388.0The [facility] CenterComment on above:Performed By: #### VITAD, FERR, FETIBC, B12FOL #### [facility] [address] [place] [address] Dr. Shilo LamHEMOGRAM AND PLATELon 11-40-8581Psrtbjoccu (Bld) [Volume fraction]32.7 %Critically low42.0-54.0The [facility] CenterComment on above: Performed By: #### VITAD, FERR, FETIBC, B12FOL #### [facility] [address] [place] [address] Dr. Shilo LamHemoglobin (Bld) [Mass/Vol]10.7 g/dLCritically low14.0-18.0The [facility] CenterComment on above:Performed By: #### VITAD, FERR, FETIBC, B12FOL #### [facility] [address] [place] [address] Dr. Shilo Mendoza (RBC) [Entitic mass]28.7 epIfuvyd12.9-34.0The [facility] CenterComment on above:Performed By: #### VITAD, FERR, FETIBC, B12FOL #### [facility] [address] [place] [address] Dr. Shilo Mendoza (RBC) [Mass/Vol]32.7 g/sLCmrjzx47.9-35.2The [facility] CenterComment on above:Performed By: #### VITAD, FERR, FETIBC, B12FOL #### [facility] [address] [place] [address] Dr. Shilo Mendoza (RBC) [Entitic vol]87.7 iIOwagth64.0-94.0The [facility] CenterComment on above:Performed By: #### VITAD, FERR, FETIBC, B12FOL #### [facility] [address] [place] [address] Dr. Shilo LamPLT157 103/ftYpvrew612-939Ylm [facility] on above: Performed By: #### VITAD, FERR, FETIBC, B12FOL #### [facility] [address] [place] [address] Dr. Shilo LamRBC3.73 106/ulCritically low4.70-6.10The [facility] on above:Performed By: #### VITAD, FERR, FETIBC, B12FOL #### [facility] [address] [place] [address] Dr. Shilo LamWBC5.6 103/ulNormal4.0-11.0The [facility] on above: Performed By: #### VITAD, FERR, FETIBC, B12FOL #### [facility] [address] [place] [address] Dr. Shilo Hernandez AND TIBCon 03-17-2022% BYZYDLCBUK55.4 %NormalThe [facility] on above:Performed By: #### VITAD, FERR, FETIBC, B12FOL #### [facility] [address] [place] [address] Dr. Shilo Hernandez [Mass/Vol]63.0 ug/dLCritically low65.0-175.0The [facility] on above:Performed By: #### VITAD, FERR, FETIBC, B12FOL #### [facility] [address] [place] [address] Dr. Shilo LamTIBHortencia GETUAO275.0 ug/dLCritically weh870.0-450.0The [facility] on above:Performed By: #### VITAD, FERR, FETIBC, B12FOL #### [facility] [address] [place] [address] Dr. Shilo LamMAGNESIUMon 96-93-7632Rnwkeixqb [Mass/Vol]2.0 mg/dLNormal1.8-2.4 The [facility] HospitalComment on above:Performed By: #### ECTORT #### [facility] [address] [place] [address] [address] Shilo Hollins 14(COMP METB)on 97-25-5732Nonepma [Mass/Vol]2.9 g/dL Critically low3.4-5.0The [facility] CenterComment on above:Performed By: #### ECTORT #### [facility] [address] [place] [address] [address] Shilo LamAlbumin/Globulin [Mass ratio]0.6 {ratio}NormalThe [facility] Medical CenterComment on above:Performed By: #### ECTORT #### [facility] [address] [place] [address] Dr. Shilo Sandoval [Catalytic activity/Vol]152 U/LCritically lmmc09-609Vla [facility] CenterComment on above:Performed By: #### ECTORT #### [facility] [address] [place] [address] [address] Shilo Ag [Catalytic activity/Vol]19 U/KHzcvbs88-16Jui [facility] CenterComment on above:Performed By: #### ECTORT #### [facility] [address] [place] [address] Dr. Shilo Renee gap [Moles/Vol]15.1 mmol/LNormalThe [facility] Comment on above:Performed By: #### ECTORT #### [facility] [address] [place] [address] [address] Shilo Andrews [Catalytic activity/Vol]21 U/WDrahvx24-32Rhq [facility] CenterComment on above:Performed By: #### FREELIT #### [facility] [address] [place] [address] [address] Shilo LamBilirubin [Mass/Vol]0.6 mg/dLNormal0.2-1.0The [facility] Comment on above:Performed By: #### FREELIT #### [facility] [address] [place] [address] Dr. Shilo LamCalcium [Mass/Vol]8.2 mg/dLCritically low8.5-10.1The [facility] CenterComment on above:Performed By: #### ECTORT #### [facility] [address] [place] [address] Dr. Shilo LamChloride [Moles/Vol]109 mmol/LCritically mjne24-308Fxt [facility] CenterComment on above:Performed By: #### ECTORT #### [facility] [address] [place] [address] [address] Shilo LamCO2 [Moles/Vol]20.5 mmol/LCritically low21.0-32.0The [facility] CenterComment on above:Performed By: #### ECTORT #### [facility] [address] [place] [address] Dr. Shilo LamCreatinine [Mass/Vol]4.77 mg/dLCritically high0.70-1.30The [facility] CenterComment on above:Performed By: #### JULIO CESAR #### [facility] [address] [place] [address] Dr. Shilo WoodwardGFR-AF UNJUCQCZ52 mL/min/1.21a3Cthlyjmyok low>=60The [facility] CenterComment on above:Performed By: #### JULIO CESAR #### [facility] [address] [place] [address] Dr. Shilo WoodwardGFR-NON AF UJYTSKCN76 mL/min/1.47m8Cbwbzxvmtn low>=60The [facility] CenterComment on above:Performed By: #### JULIO CESAR #### [facility] [address] [place] [address] Dr. Shilo LamGlobulin (S) [Mass/Vol]4.6 g/dLNormalThe [facility] CenterComment on above:Performed By: #### ECTORT #### [facility] [address] [place] [address] Dr. Shilo LamGlucose [Mass/Vol]88 mg/xECqpdcy83-049Kto [facility] Comment on above:Performed By: #### JULIO CESAR #### [facility] [address] [place] [address] [address] Shilo LamPotassium [Moles/Vol]3.6 mmol/LNormal3.5-5.1The [facility] Comment on above:Performed By: #### JULIO CESAR #### [facility] [address] [place] [address] [address] Shilo LamProtein [Mass/Vol]7.5 g/dLNormal6.4-8.2The [facility] Comment on above:Performed By: #### JULIO CESAR #### [facility] [address] [place] [address] [address] Shilo LamSodium [Moles/Vol]141 mmol/ULkpdfe713-349Tez [facility] Comment on above:Performed By: #### JULIO CESAR #### [facility] [address] [place] [address] Dr. Shilo LamUrea nitrogen [Mass/Vol]75.0 mg/dLCritically high7.0-18.0The [facility] CenterComment on above:Performed By: #### JULIO CESAR #### [facility] [address] [place] [address] [address] Shilo Armendariz nitrogen/Creatinine [Mass ratio]15.7 mg/mgNormalThe [facility] CenterComment on above:Performed By: #### JULIO CESAR #### [facility] [address] [place] [address] Dr. Shilo LamURIC ACID SERUMon 23-24-7724Wkxat [Mass/Vol]6.0 mg/dLNormal 3.5-7.2The [facility] CenterComment on above:Performed By: #### JULIO CESAR #### [facility] [address] [place] [address] Dr. Shilo Granger B12 AND FOLATEon 04-11-5884Ldvyykcqu (Vitamin B12) [Mass/Vol] 697.0 pg/kBRuuntn981.0-986.0The [facility] CenterComment on above:Performed By: #### VITAD, FERR, FETIBC, B12FOL #### [facility] [address] [place] [address] Dr. Shilo Ortega11.70 ng/mLNormal8.60-58.90[facility] on above:Performed By: #### VITAD, FERR, FETIBC, B12FOL #### [facility] [address] [place] [address] Dr. Shilo LamVITAMIN D 25 OHon [id number] D 25-OH16.2 ng/mLNormalMercy HealthComsturgis hospital on above:Performed By: #### VITAD, FERR, FETIBC, B12FOL #### [facility] [address] [place] [address] Dr. [facility]izcarra [facility] on above: Result Comment: <20 ng/mL Vit D deficient 20 - <30 ng/mL Vit D insufficient 30 - 100 ng/mL Vit D sufficient >100 ng/mL Potential ToxicityPerformed By: #### VITAD, FERR, FETIBC, B12FOL #### [facility] [address] [place] [address] Dr. Shilo [employer] Differential panel (Bld)on [id number] (Bld) [#/Vol]0.03 10*3/uLNormal<0.11COhio State Harding Hospital on above:Order Comment: Specimen Type: BLOOD SPECIMENOrdering Facility: [facility] Address:[address] [place], [place] [address]Performed By: #### 21109-6 ####[facility] [id number] [place], [place] [address]Qasovomob/100 WBC (Bld)0.4 %NormalMercy Health Perrysburg Hospital on above:Order Comment: Specimen Type: BLOOD SPECIMENOrdering Facility: [facility] Address:[address] [place], [place] [address]Performed By: #### 82315-2 ####[facility] [id number] [place], [place] [address]Zepqoooajomk cell count method Nom (Bld)AutoNormalCOhio State Harding Hospital on above:Order Comment: Specimen Type: BLOOD SPECIMENOrdering Facility: [facility] Address:[address] [place], [place] [address]Performed By: #### 21162-8 ####[facility]IA [id number] [place], [place] [address]Filsyqvnfde (Bld) [#/Vol]0.14 10*3/uLNormal<0.46[facility] on above:Order Comment: Specimen Type: BLOOD SPECIMENOrdering Facility: [facility] Address:[address] [place], [place] [address]Performed By: #### 09155-7 ####[facility]IA [id number] [place] [address] Eosinophils/100 WBC (Bld)1.9 %NormalMercy Health Perrysburg Hospital on above: Order Comment: Specimen Type: BLOOD SPECIMENOrdering Facility: [facility] Address:[address] [place], [place] [address]Performed By: #### 14073-7 ####[facility]IA [id number] [place], [place] [address]Fyzkohvjdye distribution width (RBC) [Ratio]17.1 %High 11.5-15.0[facility] on above:Order Comment: Specimen Type: BLOOD SPECIMENOrdering Facility: [facility] Address:[address] [place], [place] [address]Performed By: #### 92633-0 ####[facility]IA [id number] [place] [address] Hematocrit (Bld) [Volume fraction]32.4 %Low39.0-51.0[facility] Comment on above:Order Comment: Specimen Type: BLOOD SPECIMENOrdering Facility: [facility] Address:[address] [place] [address] Performed By: #### 85627-8 ####[facility]CL[facility] [id number] [place], [place] [address]Odlbtickyh (Bld) [Mass/Vol]10.3 g/dLLow13.0-17.0[facility] on above:Order Comment: Specimen Type: BLOOD SPECIMENOrdering Facility: [facility] Address:[address] [place], [place] [address]Performed By: #### 54135-2 ####[facility]IA [id number] [place], [place] [address]Ahdfbegd granulocytes (Bld) [#/Vol]0.03 10*3/uLNormal <0.10[facility] on above:Order Comment: Specimen Type: BLOOD SPECIMENOrdering Facility: [facility] Address:[address] [place], [place] [address]Performed By: #### 61383-8 ####[facility]IA [id number] [place], [place] [address]Uzutqrdn granulocytes/100 WBC (Bld)0.4 %NormalMercy Health Perrysburg Hospital on above:Order Comment: Specimen Type: BLOOD SPECIMENOrdering Facility: [facility] Address:[address] [place], [place] [address]Performed By: #### 67896-9 ####[facility]IA [id number] [place], [place] [address]Exxcmlukovj (Bld) [#/Vol]0.74 10*3/uLLow1.00-4.00 [facility] on above:Order Comment: Specimen Type: BLOOD SPECIMENOrdering Facility: [facility] Address:[address] [place], [place] [address]Performed By: #### 87317-7 ####[facility]IA [id number] [place] [address] Lymphocytes/100 WBC (Bld)9.9 %NormalMercy Health Perrysburg Hospital on above: Order Comment: Specimen Type: BLOOD SPECIMENOrdering Facility: [facility] Address:[address] [place], [place] [address]Performed By: #### 01340-5 ####[facility] [id number] [place], [place] [address]OAK (RBC) [Entitic mass]27.6 vkOogggv93.0-34.0[facility] on above:Order Comment: Specimen Type: BLOOD SPECIMENOrdering Facility: [facility] Address:[address] [place], [place] [address]Performed By: #### 13433-7 ####[facility]IA [id number] [place], [place] [address]JKRK (RBC) [Mass/Vol]31.8 g/sUSexmly49.5-36.0[facility] on above:Order Comment: Specimen Type: BLOOD SPECIMENOrdering Facility: [facility] Address:[address] [place], [place] [address]Performed By: #### 96027-7 ####[facility]IA [id number] [place], [place] [address]GIB (RBC) [Entitic vol]86.9 fPRpqqpy64.0-100.0 [facility] on above:Order Comment: Specimen Type: BLOOD SPECIMENOrdering Facility: [facility] Address:[address] [place], [place] [address]Performed By: #### 04424-8 ####[facility]IA [id number] [place], [place] [address]Dxvmtdhys (Bld) [#/Vol]0.77 10*3/uLNormal<0.87[facility] on above: Order Comment: Specimen Type: BLOOD SPECIMENOrdering Facility: [facility] Address:[address] [place], [place] [address]Performed By: #### 38553-1 ####[facility] [id number] [place], [place] [address]Rufpsbjmz/100 WBC (Bld)10.3 %NormalMercy Health Perrysburg Hospital on above:Order Comment: Specimen Type: BLOOD SPECIMENOrdering Facility: [facility] Address:[address] [place], [place] [address]Performed By: #### 39900-1 ####[facility]CL[facility] [id number] [place], [place] [address]Hrzbjxwzkzt (Bld) [#/Vol]5.77 10*3/uLNormal1.45-7.50[facility] on above: Order Comment: Specimen Type: BLOOD SPECIMENOrdering Facility: [facility] Address:[address] [place], [place] [address]Performed By: #### 80160-3 ####[facility]CL[facility] [id number] [place], [place] [address]Wslfdutoacs/100 WBC (Bld)77.1 %NormalMercy Health Perrysburg Hospital on above:Order Comment: Specimen Type: BLOOD SPECIMENOrdering Facility: [facility] Address:[address] [place], [place] [address]Performed By: #### 10261-2 ####[facility]CL[facility] [id number] [place], [place] [address]Gmsfbnuum RBC (Bld) [#/Vol]10*3/uLNormal<0.01[facility] on above:Order Comment: Specimen Type: BLOOD SPECIMENOrdering Facility: [facility] Address:[address] [place], [place] [address]Performed By: #### 17093-2 ####[facility] [id number] [place], [place] [address]Zwrbqraec RBC/100 WBC (Bld) [Ratio]0.0 /100 WBCNormal [facility] on above:Order Comment: Specimen Type: BLOOD SPECIMENOrdering Facility: [facility] Address:[address] [place], [place] [address]Performed By: #### 83762-7 ####[facility] [id number] [place], [place] [address]Dvxkfvji mean volume (Bld) [Entitic vol]10.4 fLNormal9.0-12.7CLake [facility] Comment on above:Order Comment: Specimen Type: BLOOD SPECIMENOrdering Facility: [facility] Address:[address] [place] [address] Performed By: #### 95740-0 ####[facility] [id number] [place], [place] [address]Pxuvgwdih (Bld) [#/Vol]136 10*3/iHDha549-624XrgjfyotvMercy Health Perrysburg Hospital on above:Order Comment: Specimen Type: BLOOD SPECIMENOrdering Facility: [facility] Address:[address] [place], [place] [address]Performed By: #### 86153-6 ####[facility] [id number] [place], [place] [address]JZR (Bld) [#/Vol]3.73 10*6/uLLow4.20-6.00[facility] on above:Order Comment: Specimen Type: BLOOD SPECIMENOrdering Facility: [facility] Address:[address] [place], [place] [address]Performed By: #### 29739-2 ####[facility]CL[facility] [id number] [place], [place] [address]ZUP (Bld) [#/Vol]7.48 10*3/uLNormal3.70-11.00[facility] on above:Order Comment: Specimen Type: BLOOD SPECIMENOrdering Facility: [facility] Address:[address] [place], [place] [address]Performed By: #### 91548-8 ####[facility] LABCLIA [id number] [place], [place] [address]GASWLIgz [id number] (SP) Office (HEMASA) [place] ([id number]) 1965 M Date Time Provider Department 02/18/22 1:45 PM CONRAD ROJAS During your visit today, we recorded the following information about you: Temperature Pulse Respiration Blood pressure 97.7 degrees 51/minute 16/minute 129/59 Weight Height 88 kg 1.93 m Conrad Rojas MD 02/21/2022 5:24 PM Signed NAME: Gopla Yates CLINIC NO.: [id number] DATE OF SERVICE: February 18, 2022 (Latricia) Some elements in this clinic note that are critical to medical decision making have been carefully reviewed and included from a prior clinic note dated:January 14, 2022 (Imer) Referring Provider: Dr. Douglas Juárez Additional Clinicians involved in Gopal Yates JR's care: DIAGNOSIS: Elevated [place]: Lambda light chains CKD induced anemia ASSESSMENT: [...] bruising. 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 Overall, he is doing [...] [place] [facility] Visit, October 02, 2021: Gopal Yates [...] 30 mg 24 hr (more content not included)...Normal [facility] metabolic 2000 panelon 01-08-4430Tiroghf [Mass/Vol]3.2 g/dLLow3.9-4.9COhio State [facility] on above:Order Comment: Specimen Type: BLOOD SPECIMENOrdering Facility: [facility] Address:[address] [place], [place] [address]Performed By: #### 86730-0 ####[facility]CL[facility] [id number] [place], [place] [address]BEP [Catalytic activity/Vol]156 U/YTymr48-396MhqwkmqxqMercy Health [facility]sburg Hospital on above:Order Comment: Specimen Type: BLOOD SPECIMENOrdering Facility: [facility] Address:[address] [place], [place] [address]Performed By: #### 60789-5 ####[facility]CL[facility] [id number] [place], [place] [address]DBL [Catalytic activity/Vol]12 U/XXiekop10-22WcywebbrfMercy Health Perrysburg Hospital on above:Order Comment: Specimen Type: BLOOD SPECIMENOrdering Facility: [facility] Address:[address] [place], [place] [address]Performed By: #### 31481-3 ####[facility]CL[facility] [id number] [place], [place] [address]Pcvge gap [Moles/Vol]11 mmol/LNormal9-18[facility] on above:Order Comment: Specimen Type: BLOOD SPECIMENOrdering Facility: [facility] Address:[address] [place], [place] [address]Performed By: #### 18820-1 ####[facility] LABCLIA [id number] [place], [place] [address]XML [Catalytic activity/Vol]14 U/AJnosac08-32YmqadknknMercy Health Perrysburg Hospital on above:Order Comment: Specimen Type: BLOOD SPECIMENOrdering Facility: [facility] Address:[address] [place], [place] [address]Performed By: #### 36897-2 ####[facility] LABCLIA [id number] [facility]SCARBAN[facility] [place]GAL[place], [place] [address]Kehnsilio [Mass/Vol]0.5 mg/dLNormal0.2-1.3COhio State [facility]ing Hospital on above:Order Comment: Specimen Type: BLOOD SPECIMENOrdering Facility: [facility] Address:[address] [place], [place] [address]Performed By: #### 03622-5 ####[facility] LABCLIA [id number] [facility], [place] [address]Gjyfuqe [Mass/Vol]8.2 mg/dLLow8.5-10.2COhio State [facility]ing [facility] on above:Order Comment: Specimen Type: BLOOD SPECIMENOrdering Facility: [facility] Address:[address] [place], [place] [address]Performed By: #### 41664-8 ####[facility]CLIA [id number] [facility] [place], [place] [address]Jntmwhwy [Moles/Vol]114 mmol/POait28-440SbhyuopphMercy Health Perrysburg Hospital on above:Order Comment: Specimen Type: BLOOD SPECIMENOrdering Facility: [facility] Address:[address] [place], [place] [address]Performed By: #### 60329-0 ####[facility] LABCLIA [id number] [place], [place] [address]ZH1 [Moles/Vol]18 mmol/ZTbr42-51WzkwleowrMercy Health Perrysburg Hospital on above:Order Comment: Specimen Type: BLOOD SPECIMENOrdering Facility: [facility] Address:[address] [place], [place] [address]Performed By: #### 52917-6 ####[facility]CLIA [id number] [place] [address] Creatinine [Mass/Vol]4.08 mg/dLHigh0.73-1.22[facility] on above:Order Comment: Specimen Type: BLOOD SPECIMENOrdering Facility: [facility] Address:[address] [place], [place] [address]Performed By: #### 68690-1 ####[facility] LABIA [id number] [place], [place] [address]SXPTUPXDD GLOMERULAR FILTRATION RATE16 mL/min/1.73m???Low>=60[facility] on above:Order Comment: Specimen Type: BLOOD SPECIMENOrdering Facility: [facility] Address:[address] [place], [place] [address]Result Comment: Estimated Glomerular Filtration Rate (eGFR) is calculated using the 2020 CKD-EPI cre atinine equation. This equation utilizes serum creatinine, sex, and age as parameters. The creatinine assay has traceable calibration to isotope dilution- mass spectrometry. Refer to KDIGO guidelines for clinical interpretation. In patients with unstable renal function, e.g. those with acute kidney injury, the eGFR may not accurately reflect actual GFR.Performed By: #### 92185-3 ####[facility] LABCLIA [id number] [place], [place] [address]Lcqrtoj [Mass/Vol]102 mg/cHUbqw44-63XnrelrojkMercy Health Perrysburg Hospital on above:Order Comment: Specimen Type: BLOOD SPECIMENOrdering Facility: [facility] Address:[address] [place], [place] [address]Result Comment: The [place] [employer] (ADA) provides guidance for cutoff [...] Standards of Medical Care in Diabetes 2016, [place] [employer]. Diabetes Care. 2016.39(Suppl 1).Performed By: #### 00263-3 ####[facility] LABCLIA [id number] [place], [place] [address]Wabihxihx [Moles/Vol]4.1 mmol/LNormal3.7-5.1COhio State [facility]ing Hospital on above:Order Comment: Specimen Type: BLOOD SPECIMENOrdering Facility: [facility] Address:[address] [place], [place] [address]Performed By: #### 77592-2 ####[facility]CLIA [id number] [place], [place] [address]Uemgqcn [Mass/Vol]6.8 g/dLNormal6.3-8.0[facility] on above:Order Comment: Specimen Type: BLOOD SPECIMENOrdering Facility: [facility] Address:[address] [place], [place] [address]Performed By: #### 49000-9 ####[facility] LABCLIA [id number] [place], [place] [address]Fxgqli [Moles/Vol]143 mmol/QHzngnh317-134ZtulstrntMercy Health Perrysburg Hospital on above:Order Comment: Specimen Type: BLOOD SPECIMENOrdering Facility: [facility] Address:[address] [place], [place] [address]Performed By: #### 28795-2 ####[facility] LABCLIA [id number] [place], [place] [address]Suab nitrogen [Mass/Vol]54 mg/dLHigh9-24[facility] on above:Order Comment: Specimen Type: BLOOD SPECIMENOrdering Facility: [facility] Address:[address] [place], [place] [address]Performed By: #### 46559-8 ####[facility] LABCLIA [id number] [place], [place] [address]GHT W Auto Differential panel (Bld)on 36-56-4624Mmsbnpkcn (Bld) [#/Vol]0.03 10*3/uLNormal<0.11COhio State [facility] on above: Order Comment: Specimen Type: BLOOD SPECIMEN [facility] Address: [address] [place], [place] [address]Performed By: #### 39815-1 #### [facility] CLIA [id number] [address] [place] [address]Mrmhpoqdc/100 WBC (Bld)0.3 %NormalKettering Health Greene Memorial Comment on above:Order Comment: Specimen Type: BLOOD SPECIMEN [facility] Address: [address] [place], [place] [address]Performed By: #### 33979-1 #### [facility] CLIA [id number] [address] [place] [address]Pbbbgmzfguid cell count method Nom (Bld)AutoNormalClevelDayton Osteopathic Hospital on above:Order Comment: Specimen Type: BLOOD SPECIMEN [facility] Address: [facility] [place] [address]Performed By: #### 64716-8 #### [facility] CLIA [id number] [address] [place] [address]Ernfilxwmpc (Bld) [#/Vol]0.13 10*3/uLNormal<0.46[facility] on above:Order Comment: Specimen Type: BLOOD SPECIMEN [facility] Address: [address] [place], [place] [address]Performed By: #### 25862-6 #### [facility] CLIA [id number] [address] [place] [address]Uwnkijzdhdw/100 WBC (Bld)1.4 %NormalKettering Health Greene Memorial Comment on above:Order Comment: Specimen Type: BLOOD SPECIMEN [facility] Address: [address] [place], [place] [address]Performed By: #### 19243-9 #### [facility] CLIA [id number] [address] [place] [address]Hcwuvtvhktm distribution width (RBC) [Ratio]14.6 %Normal 11.5-15.0[facility] on above:Order Comment: Specimen Type: BLOOD SPECIMEN [facility] Address: [address] [place], [place] [address]Performed By: #### 74870-1 #### [facility] CLIA [id number] [address] [place] [address]Snmibsilqm (Bld) [Volume fraction]29.9 %Low39.0-51.0[facility] on above:Order Comment: Specimen Type: BLOOD SPECIMEN [facility] Address: [address] [place], [place] [address]Performed By: #### 67554-5 #### [facility] CLIA [id number] [address] [place] [address]Oonhkvgrzz (Bld) [Mass/Vol]9.8 g/dLLow13.0-17.0[facility] on above:Order Comment: Specimen Type: BLOOD SPECIMEN [facility] Address: [address] [place], [place] [address]Performed By: #### 21727-6 #### [facility] CLIA [id number] [address] [place] [address]Mgzwqszo granulocytes (Bld) [#/Vol]0.03 10*3/uLNormal<0.10 [facility] on above:Order Comment: Specimen Type: BLOOD SPECIMEN [facility] Address: [address] [place], [place] [address]Performed By: #### 06279-0 #### [facility] CLIA [id number] [address] [place] [address]Ygqxehqs granulocytes/100 WBC (Bld)0.3 %NormalKettering Health Greene MemorialComment on above:Order Comment: Specimen Type: BLOOD SPECIMEN [facility] Address: [address] [place], [place] [address]Performed By: #### 22593-7 #### [facility] CLIA [id number] [address] [place] [address]Htlwutqjhyf (Bld) [#/Vol]0.88 10*3/uLLow1.00-4.00[facility] on above:Order Comment: Specimen Type: BLOOD SPECIMEN [facility] Address: [address] [place], [place] [address]Performed By: #### 80279-6 #### [facility] CLIA [id number] [address] [place] [address]Xrcrhkhvbyu/100 WBC (Bld)9.4 %NormalKettering Health Greene Memorial Comment on above:Order Comment: Specimen Type: BLOOD SPECIMEN [facility] Address: [address] [place], [place] [address]Performed By: #### 37189-8 #### [facility] CLIA [id number] [address] [place] [address]AIC (RBC) [Entitic mass]27.5 vfMrfdjk01.0-34.0[facility] on above:Order Comment: Specimen Type: BLOOD SPECIMEN [facility] Address: [address] [place], [place] [address]Performed By: #### 19236-5 #### [facility] CLIA [id number] [address] [place] [address]GXHB (RBC) [Mass/Vol]32.8 g/xMGcxsar45.5-36.0[facility] on above:Order Comment: Specimen Type: BLOOD SPECIMEN [facility] Address: [address] [place], [place] [address]Performed By: #### 13725-2 #### [facility] CLIA [id number] [address] [place] [address]LDJ (RBC) [Entitic vol]84.0 vBDfraaw09.0-100.0K[facility] MemorialComment on above:Order Comment: Specimen Type: BLOOD SPECIMEN [facility] Address: [address] [place], [place] [address]Performed By: #### 77759-2 #### [facility] CLIA [id number] [address] [place] [address]Hrjrlzxxx (Bld) [#/Vol]0.82 10*3/uLNormal<0.87[facility] on above:Order Comment: Specimen Type: BLOOD SPECIMEN [facility] Address: [address] [place], [place] [address]Performed By: #### 72838-7 #### [facility] CLIA [id number] [address] [place] [address] 222[address]Kerxivtkc/100 WBC (Bld)8.8 %NormalKettering Health Greene Memorial Comment on above:Order Comment: Specimen Type: BLOOD SPECIMEN [facility] Address: [address] [place], [place] [address]Performed By: #### 16662-9 #### [facility] CLIA [id number] [address] [place] [address]Burktdkluqe (Bld) [#/Vol]7.48 10*3/uLNormal1.45-7.50[facility] on above:Order Comment: Specimen Type: BLOOD SPECIMEN [facility] Address: [address] [place], [place] [address]Performed By: #### 80916-0 #### [facility] CLIA [id number] [address] [place] [address]63[address]Meqabnugurt/100 WBC (Bld)79.8 %NormalMercy Health Perrysburg Hospital on above:Order Comment: Specimen Type: BLOOD SPECIMEN [facility] Address: [address] [place], [place] [address]Performed By: #### 84401-9 #### [facility] CLIA [id number] [address] [place] [address]Jfejabgyo RBC (Bld) [#/Vol]10*3/uLNormal<0.01[facility] on above:Order Comment: Specimen Type: BLOOD SPECIMEN Ordering Facility: [facility] Address: [address] [place], [place] [id number] By: #### 87252-4 #### [facility] CLIA [id number] [address] [place] [address] 06420Kxctruqaq RBC/100 WBC (Bld) [Ratio]0.0 /100 WBCNormalCOhio [facility] on above:Order Comment: Specimen Type: BLOOD SPECIMEN Ordering Facility: [facility] Address: [address] [place], [place] [address]Performed By: #### 94470-6 #### [facility] CLIA [id number] [address] [place] [address] 48215Rqzlysxk mean volume (Bld) [Entitic vol]10.4 fLNormal9.0-12.7 [facility] on above:Order Comment: Specimen Type: BLOOD SPECIMEN Ordering Facility: [facility] Address: [address] [place], [place] [address]Performed By: #### 23184-4 #### [facility] CLIA [id number] [address] [place] [address] 79998Wurawtwsz (Bld) [#/Vol]137 10*3/oVRwv287-920DnaxwmfdlMercy Health [facility]sburg Hospital on above:Order Comment: Specimen Type: BLOOD SPECIMEN Ordering Facility: [facility] Address: [address] [place], [place] [address]Performed By: #### 85144-3 #### [facility] CLIA [id number] [address] [place], [place] [address]ZBD (Bld) [#/Vol]3.56 10*6/uLLow4.20-6.00[facility] on above:Order Comment: Specimen Type: BLOOD SPECIMEN Ordering Facility: [facility] Address: [address] [place], [place] [address]Performed By: #### 34396-1 #### [facility] CLIA [id number] [address] [place], [place] [address]CKQ (Bld) [#/Vol]9.37 10*3/uLNormal3.70-11.00[facility] on above:Order Comment: Specimen Type: BLOOD SPECIMEN Ordering Facility: [facility] Address: [address] [place], [place] [address]Performed By: #### 26365-2 #### [facility] CLIA [id number] [address] [place], [place] [address]Qfmlmneqeekfh metabolic 2000 panelon 38-91-2228Elfkwro [Mass/Vol]3.4 g/dLLow3.9-4.9COhio State Harding Hospital on above:Order Comment: Specimen Type: BLOOD SPECIMENOrdering Facility: [facility] Address:[address] [place], [place] [address]Performed By: #### 27891-3 ####[facility] [id number] [place], [place] [address]KZL [Catalytic activity/Vol]179 U/UFubu76-821AkrcozheoMercy Health Perrysburg Hospital on above:Order Comment: Specimen Type: BLOOD SPECIMENOrdering Facility: [facility] Address:[address] [place], [place] [address]Performed By: #### 62629-7 ####[facility] [id number] [place], [place] [address]ZER [Catalytic activity/Vol]25 U/HAvwtkg36-79FcxunxdanMercy Health Perrysburg Hospital on above:Order Comment: Specimen Type: BLOOD SPECIMENOrdering Facility: [facility] Address:[address] [place], [place] [address]Performed By: #### 71528-4 ####[facility] [id number] [place], [place] [address]Jxfce gap [Moles/Vol]8 mmol/LLow9-18[facility] on above:Order Comment: Specimen Type: BLOOD SPECIMENOrdering Facility: [facility] Address:[address] [place], [place] [address]Performed By: #### 56726-5 ####[facility] [id number] [place], [place] [address]GMY [Catalytic activity/Vol]23 U/CDzwzqx83-15WdgjhchubMercy Health Perrysburg Hospital on above:Order Comment: Specimen Type: BLOOD SPECIMENOrdering Facility: [facility] Address:[address] [place], [place] [address]Performed By: #### 84251-5 ####[facility] [id number] [place], [place] [address]Jjkmgvryg [Mass/Vol]0.3 mg/dLNormal0.2-1.3COhio State Harding Hospital on above:Order Comment: Specimen Type: BLOOD SPECIMENOrdering Facility: [facility] Address:[address] [place], [place] [address]Performed By: #### 17958-9 ####[facility] [id number] [place], [place] [address]Pvpjbsf [Mass/Vol]8.4 mg/dLLow8.5-10.2COhio State [facility]ing Hospital on above:Order Comment: Specimen Type: BLOOD SPECIMENOrdering Facility: [facility] Address:[address] [place], [place] [address]Performed By: #### 82041-8 ####[facility] [id number] [place], [place] [address]Bqldftez [Moles/Vol]117 mmol/LNgxo64-878ZzdovadovMercy Health Perrysburg Hospital on above:Order Comment: Specimen Type: BLOOD SPECIMENOrdering Facility: [facility] Address:[address] [place], [place] [address]Performed By: #### 82123-0 ####[facility] [id number] [place], [place] [address]FB0 [Moles/Vol]21 mmol/AQhs03-83NxoedtfveMercy Health Perrysburg Hospital on above:Order Comment: Specimen Type: BLOOD SPECIMENOrdering Facility: [facility] Address:[address] [place], [place] [address]Performed By: #### 91588-2 ####[facility] [id number] [place] [address] Creatinine [Mass/Vol]3.84 mg/dLHigh0.73-1.22[facility] on above:Order Comment: Specimen Type: BLOOD SPECIMENOrdering Facility: [facility] Address:[address] [place], [place] [address]Performed By: #### 29673-4 ####[facility] [id number] [place], [place] [address]OLALVREBV GLOMERULAR FILTRATION RATE17 mL/min/1.73m???Low>=60[facility] on above:Order Comment: Specimen Type: BLOOD SPECIMENOrdering Facility: [facility] Address:[address] [place], [place] [address]Result Comment: Estimated Glomerular Filtration Rate (eGFR) is calculated using the 2020 CKD-EPI cre atinine equation. This equation utilizes serum creatinine, sex, and age as parameters. The creatinine assay has traceable calibration to isotope dilution- mass spectrometry. Refer to KDIGO guidelines for clinical interpretation. In patients with unstable renal function, e.g. those with acute kidney injury, the eGFR may not accurately reflect actual GFR.Performed By: #### 07247-9 ####[facility] [id number] [place], [place] [address]Vbeaojx [Mass/Vol]96 mg/hORuguip25-03RbydizlpcMercy Health Perrysburg Hospital on above:Order Comment: Specimen Type: BLOOD SPECIMENOrdering Facility: [facility] Address:[address] [place], [place] [address]Result Comment: The [place] Diabetes Association (ADA) provides guidance for cutoff [...] Standards of Medical Care in Diabetes 2016, [place] [employer]. Diabetes Care. 2016.39(Suppl 1).Performed By: #### 91063-0 ####[facility]ABR[facility] LABCLIA [id number] [place], [place] [address]Nwzkhenhe [Moles/Vol]4.1 mmol/LNormal3.7-5.1COhio State Harding Hospital on above:Order Comment: Specimen Type: BLOOD SPECIMENOrdering Facility: [facility] Address:[address] [place], [place] [address]Performed By: #### 77904-0 ####[facility] [id number] [place], [place] [address]Sipgumf [Mass/Vol]6.9 g/dLNormal6.3-8.0[facility] on above:Order Comment: Specimen Type: BLOOD SPECIMENOrdering Facility: [facility] Address:[address] [place], [place] [address]Performed By: #### 66162-3 ####[facility] [id number] [place], [place] [address]Fusbys [Moles/Vol]146 mmol/FLabv323-895NhqnvgoysMercy Health Perrysburg Hospital on above:Order Comment: Specimen Type: BLOOD SPECIMENOrdering Facility: [facility] Address:[address] [address]Performed By: #### 22044-5 ####[facility] [id number] [place], [place] [address]Egui nitrogen [Mass/Vol]56 mg/dLHigh9-24[facility] on above:Order Comment: Specimen Type: BLOOD SPECIMENOrdering Facility: [facility] Address:[address] [address]Performed By: #### 95996-9 ####[facility] [id number] [place], [place] [address]DUVBNSPA BLDon 72-93-1325Vowvpslm [Mass/Vol]684.0 ng/mL High30.3 - 565.7 ng/mLClevelWexner Medical CenterIron and Iron binding capacity panelon 09-15-6050Bmat [Mass/Vol]56 ug/dL41 - 186 ug/dLCleveland Clinic Children'S Hospital For RehabilitationIron binding capacity [Mass/Vol]177 ug/lZGhq981 - 386 ug/dLCleveland Clinic Children'S Hospital For RehabilitationIron/TIBC [Molar ratio]31.6 %15.0 - 57.0 %[facility] BLDon 40-18-3282ONF Qn0.808 m[IU]/L 0.270 - 4.200 mIU/LCLake County Memorial Hospital - West W Auto Differential panel (Bld)on 28-93-1172Itgrwygne (Bld) [#/Vol]0.03 10*3/uLNormal<0.11COhio State [facility] on above:Order Comment: Specimen Type: BLOOD SPECIMEN [facility] Address: [address] [address]Performed By: #### 28854-5 #### [facility] CLIA [id number] [address] [place] [address]Aofttafgu/100 WBC (Bld)0.4 %NormalKettering Health Greene Memorial Comment on above:Order Comment: Specimen Type: BLOOD SPECIMEN [facility] Address: [address] [place], [place] [address]Performed By: #### 06184-0 #### [facility] CLIA [id number] [address] [place] [address] 16[address]Uljwnjnwsokq cell count method Nom (Bld)AutoNormalCLake County Memorial Hospital - WestComment on above:Order Comment: Specimen Type: BLOOD SPECIMEN [facility] Address: [address] [place], [place] [address]Performed By: #### 76869-0 #### [facility] CLIA [id number] [address] [place] [address]Zzypcctalxf (Bld) [#/Vol]0.19 10*3/uLNormal<0.46[facility] on above:Order Comment: Specimen Type: BLOOD SPECIMEN [facility] Address: [address] [place], [place] [address]Performed By: #### 50630-3 #### [facility] CLIA [id number] [address] [place] [address] 145[address]Hlvbjuflhjp/100 WBC (Bld)2.2 %NormalKettering Health Greene Memorial Comment on above:Order Comment: Specimen Type: BLOOD SPECIMEN [facility] Address: [address] [place], [place] [address]Performed By: #### 87164-8 #### [facility] CLIA [id number] [address] [place] [address] 113[address]Phfocmqqbbz distribution width (RBC) [Ratio]13.9 %Normal 11.5-15.0[facility] on above:Order Comment: Specimen Type: BLOOD SPECIMEN [facility] Address: [address] [place], [place] [address]Performed By: #### 77881-7 #### [facility] CLIA [id number] [address] [place] [address] 998[address]Bblxzqwvop (Bld) [Volume fraction]33.7 %Low39.0-51.0[facility] on above:Order Comment: Specimen Type: BLOOD SPECIMEN [facility] Address: [address] [place], [place] [address]Performed By: #### 22491-6 #### [facility] CLIA [id number] [address] [place] [address] 217[address]Kjbiibznai (Bld) [Mass/Vol]11.3 g/dLLow13.0-17.0[facility] on above:Order Comment: Specimen Type: BLOOD SPECIMEN [facility] Address: [address] [place], [place] [address]Performed By: #### 82745-8 #### [facility] CLIA [id number] [address] [place] [address]1998Owxfprcz granulocytes (Bld) [#/Vol]0.03 10*3/uLNormal<0.10 [facility] on above:Order Comment: Specimen Type: BLOOD SPECIMEN [facility] Address: [address] [place], [place] [address]Performed By: #### 53712-7 #### [facility] CLIA [id number] [address] [place] [address] 73566Nhhozctb granulocytes/100 WBC (Bld)0.4 %NormalMercy Health Perrysburg Hospital on above:Order Comment: Specimen Type: BLOOD SPECIMEN [facility] Address: [address] [place], [place] [address]Performed By: #### 98940-4 #### [facility] CLIA [id number] [address] [place] [address] 96493Ztotrvlkhnv (Bld) [#/Vol]0.95 10*3/uLLow1.00-4.00[facility] on above:Order Comment: Specimen Type: BLOOD SPECIMEN [facility] Address: [address] [place], [place] [address]Performed By: #### 79815-2 #### [facility] CLIA [id number] [address] [place] [address] 13801Cdoqisvhwuy/100 WBC (Bld)11.1 %NormalMercy Health Perrysburg Hospital on above:Order Comment: Specimen Type: BLOOD SPECIMEN [facility] Address: [address] [place], [place] [address]Performed By: #### 94245-4 #### [facility] CLIA [id number] [address] [place] [address] 22114SBI (RBC) [Entitic mass]27.6 jvLtisda52.0-34.0[facility] on above:Order Comment: Specimen Type: BLOOD SPECIMEN [facility] Address: [address] [place], [place] [address]Performed By: #### 91211-5 #### [facility] CLIA [id number] [address] [place] [address] 160[address]CHJW (RBC) [Mass/Vol]33.5 g/dUAsanly51.5-36.0[facility] on above:Order Comment: Specimen Type: BLOOD SPECIMEN [facility] Address: [address] [place], [place] [address]Performed By: #### 98425-6 #### [facility] CLIA [id number] [address] [place] [address] 53568HFR (RBC) [Entitic vol]82.2 nCUmmydw20.0-100.0[facility] on above:Order Comment: Specimen Type: BLOOD SPECIMEN [facility] Address: [address]Performed By: #### 38888-0 #### [facility] CLIA [id number] [address] [place] [address] 6[address]Yxgbrqzvg (Bld) [#/Vol]0.89 10*3/uLHigh<0.87[facility] on above:Order Comment: Specimen Type: BLOOD SPECIMEN [facility] Address: [address] [place], [place] [address]Performed By: #### 19658-7 #### [facility] CLIA [id number] [address] [place] [address] 39457Ynmtprudl/100 WBC (Bld)10.4 %NormalKettering Health Greene Memorial Comment on above:Order Comment: Specimen Type: BLOOD SPECIMEN [facility] Address: [address] [place], [place] [address]Performed By: #### 43019-5 #### [facility] CLIA [id number] [address] [place] [address] 95801Sfffmjxnose (Bld) [#/Vol]6.45 10*3/uLNormal1.45-7.50[facility] on above:Order Comment: Specimen Type: BLOOD SPECIMEN [facility] Address: [address] [place], [place] [address]Performed By: #### 03329-8 #### [facility] CLIA [id number] [address] [place] [address] 73460Zrefstngbnq/100 WBC (Bld)75.5 %NormalMercy Health Perrysburg Hospital on above:Order Comment: Specimen Type: BLOOD SPECIMEN [facility] Address: [address] [place], [place] [address]Performed By: #### 42164-2 #### [facility] CLIA [id number] [address] [place] [address] 898[address]Goeaffofl RBC (Bld) [#/Vol]10*3/uLNormal<0.01[facility] on above:Order Comment: Specimen Type: BLOOD SPECIMEN [facility] Address: [address]Performed By: #### 97215-4 #### [facility] CLIA [id number] [address] [place], [place] [address]Thyfxswel RBC/100 WBC (Bld) [Ratio]0.0 /100 WBCNormalCOhio State Harding Hospital on above:Order Comment: Specimen Type: BLOOD SPECIMEN [facility] Address: [address] [place], [place] [address]Performed By: #### 28984-5 #### [facility] CLIA [id number] [address] [place] [address] 373[address]Mghkqojw mean volume (Bld) [Entitic vol]10.1 fLNormal9.0-12.7 [facility] on above:Order Comment: Specimen Type: BLOOD SPECIMEN [facility] Address: [address] [place], [place] [address]Performed By: #### 44785-9 #### [facility] CLIA [id number] [address] [place] [address] 797[address]Fpafbtcol (Bld) [#/Vol]168 10*3/pCOqfvdu769-502LwfdetrjdMercy Health [facility]sburg Hospital on above:Order Comment: Specimen Type: BLOOD SPECIMEN [facility] Address: [address]Performed By: #### 83774-2 #### [facility] CLIA [id number] [address] [place] [address]TCP (Bld) [#/Vol]4.10 10*6/uLLow4.20-6.00[facility] on above:Order Comment: Specimen Type: BLOOD SPECIMEN [facility] Address: [address] [place], [place] [address]Performed By: #### 47520-1 #### [facility]ITALBRANDY [facility] CLIA [id number] [address] [place], [place] [address]SWP (Bld) [#/Vol]8.54 10*3/uLNormal3.70-11.00[facility] on above:Order Comment: Specimen Type: BLOOD SPECIMEN [facility] Address: [address] [place] [address]Aqmjscjep By: #### 77325-2 #### A[facility] CLIA [id number] [address] [place], [place] [address]OSQQWFbm 73-17-5471WIHTRSJudqd (SP) Office (HEMASA) GOPAL YATES JR ([id number]) 1965 M Date Time Provider Department 01/14/22 2:30 PM MONIK DOTSON During your visit today, we recorded the following information about you: Temperature Pulse Respiration Blood pressure 97.6 degrees 57/minute 16/minute 130/58 Weight Height 86.5 kg 1.93 m Monik Dotson APRN.CNP 01/16/2022 4:13 PM Signed NAME: Gopal Yates CLINIC NO.: [id number] DATE OF SERVICE: January 14, 2022 (Imer) [...] to Holiday) 3. [place] [facility] [place]. CURRENT [...] bruising. 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 Overall, he is doing [...] completed 5 doses of [place] [facility] Visit, October 02, 2021: Gopal Yates [...] bicarbonate 650 mg tab (more content not included)...NormalLakeHealth Beachwood Medical Centerprehensive metabolic 2000 panelon 10-42-1378Pvddunu [Mass/Vol]3.4 g/dLLow3.9-4.9COhio State [facility] on above:Order Comment: Specimen Type: BLOOD SPECIMENOrdering Facility: [facility] Address:[address] [place], [place] [address]Performed By: #### 55422-0 ####[facility] LABCLIA [id number] [place], [place] [address]OCM [Catalytic activity/Vol]190 U/YPsps88-471AtynfcbefMercy Health [facility] Hospital on above:Order Comment: Specimen Type: BLOOD SPECIMENOrdering Facility: [facility] Address:[address] [place], [place] [address]Performed By: #### 39741-0 ####[facility]CLIA [id number] [place], [place] [address]SID [Catalytic activity/Vol]24 U/YIbxfnf36-92FyprhzbqhMercy Health [facility]sburg Hospital on above:Order Comment: Specimen Type: BLOOD SPECIMENOrdering Facility: [facility] Address:[address] [place], [place] [address]Performed By: #### 19610-5 ####[facility]CLIA [id number] [place], [place] [address]Mvnrh gap [Moles/Vol]11 mmol/LNormal9-18[facility] on above:Order Comment: Specimen Type: BLOOD SPECIMENOrdering Facility: [facility] Address:[address] [place], [place] [address]Performed By: #### 74402-7 ####[facility]CL[facility] [id number] ARELIS ALANISSCARBANNER BAYWOOD [place]JACQUI [place] [address]XOP [Catalytic activity/Vol]19 U/DBotsoi80-53FgfcfphhbMercy Health [facility] Hospital on above:Order Comment: Specimen Type: BLOOD SPECIMENOrdering Facility: [facility] Address:[address] [place], [place] [address]Performed By: #### 29237-1 ####[facility] [id number] ARELIS ALANISSCARBANNER BAYWOOD MEDICAL CENTERGALODR[place], [place] [address]Oowiypxuf [Mass/Vol]0.4 mg/dLNormal0.2-1.3COhio State [facility]ing Hospital on above:Order Comment: Specimen Type: BLOOD SPECIMENOrdering Facility: [facility] Address:[address] [place], [place] [address]Performed By: #### 20364-3 ####[facility] [id number] ARELIS ALANISSCARBANNER BAYWOOD [place] [address]Kmokesc [Mass/Vol]8.5 mg/dLNormal8.5-10.2COhio State [facility] on above: Order Comment: Specimen Type: BLOOD SPECIMENOrdering Facility: [facility] Address:[address] [place], [place] [address]Performed By: #### 66662-5 ####[facility]CLIA [id number] ARELIS BRITTONBANNER BAYWOOD MEDICAL CENTERJACQUIMI [place], [place] [address]Qrpimucq [Moles/Vol]112 mmol/OIsss25-390HxmpoezkiMercy Health [facility] Hospital on above:Order Comment: Specimen Type: BLOOD SPECIMENOrdering Facility: [facility] Address:[address] [place], [place] [address]Performed By: #### 72155-9 ####[facility]CLIA [id number] [place], [place] [address]RV8 [Moles/Vol]19 mmol/AJzg98-93PagaypktiMercy Health [facility]sburg Hospital on above:Order Comment: Specimen Type: BLOOD SPECIMENOrdering Facility: [facility] Address:[address] [place], [place] [address]Performed By: #### 46244-2 ####[facility] [id number] [place] [address] Creatinine [Mass/Vol]4.06 mg/dLHigh0.73-1.22[facility] on above:Order Comment: Specimen Type: BLOOD SPECIMENOrdering Facility: [facility] Address:[address] [place], [place] [address]Performed By: #### 16905-5 ####[facility]IA [id number] [place], [place] [address]GVQGTNTKH GLOMERULAR FILTRATION RATE16 mL/min/1.73m???Low>=60[facility] on above:Order Comment: Specimen Type: BLOOD SPECIMENOrdering Facility: [facility] Address:[address] [place], [place] [address]Result Comment: Estimated Glomerular Filtration Rate (eGFR) is calculated using the 2020 CKD-EPI cre atinine equation. This equation utilizes serum creatinine, sex, and age as parameters. The creatinine assay has traceable calibration to isotope dilution- mass spectrometry. Refer to KDIGO guidelines for clinical interpretation. In patients with unstable renal function, e.g. those with acute kidney injury, the eGFR may not accurately reflect actual GFR.Performed By: #### 40041-1 ####[facility]IA [id number] [place], [place] [address]Vipflkc [Mass/Vol]90 mg/cXRslsaz16-01JpzwrqwipMercy Health Perrysburg Hospital on above:Order Comment: Specimen Type: BLOOD SPECIMENOrdering Facility: [facility] Address:[address] [id number] Comment: The [place] Diabetes [employer] (ADA) provides guidance for cutoff [...] Standards of Medical Care in Diabetes 2016, [place] [employer]. Diabetes Care. 2016.39(Suppl 1).Performed By: #### 77875-6 ####[facility] LABCLIA [id number] [place], [place] [address]Dnzollbbr [Moles/Vol]4.1 mmol/LNormal3.7-5.1COhio State Harding Hospital on above:Order Comment: Specimen Type: BLOOD SPECIMENOrdering Facility: [facility] Address:[address] [place], [place] [address]Performed By: #### 62222-1 ####[facility] LABCLIA [id number] [place], [place] [address]Joqutpx [Mass/Vol]7.2 g/dLNormal6.3-8.0[facility] on above:Order Comment: Specimen Type: BLOOD SPECIMENOrdering Facility: [facility] Address:[address]Performed By: #### 67303-8 ####[facility] LABCLIA [id number] [place], [place] [address]Skcfeq [Moles/Vol]142 mmol/GXmtfhj361-455UnebqrpgkMercy Health Perrysburg Hospital on above:Order Comment: Specimen Type: BLOOD SPECIMENOrdering Facility: [facility] Address:[address]Performed By: #### 90557-7 ####[facility] LABCLIA [id number] [place], [place] [address]Nllf nitrogen [Mass/Vol]61 mg/dLHigh9-24[facility] on above:Order Comment: Specimen Type: BLOOD SPECIMENOrdering Facility: [facility] Address:[address] [place], [place] [address]Performed By: #### 46428-7 ####[facility] LABCLIA [id number] [place], [place] [address]Uuvorcji SerPl-mCncon 47-76-7819Sxkmzuxj [Mass/Vol]684.0 ng/jGNfkf18.3-565.7COhio State [facility]ing [facility] on above:Order Comment: Specimen Type: BLOOD SPECIMENOrdering Facility: [facility] Address:[address] [place], [place] [address]Performed By: #### 2276-4, 05071-8, 3016-3 ####[facility] LABIA [id number] [place] [address] [place] AMERICAIron and Iron binding capacity panelon 94-86-6606Ocqv [Mass/Vol]56 ug/hNRvpgfn29-897TyrmnrmeiMercy Health [facility] on above:Order Comment: Specimen Type: BLOOD SPECIMENOrdering Facility: [facility] Address:[address] [place] [address]Performed By: #### 2276-4, 49978-0, 3016-3 ####[facility] LABIA [id number] [place] [address] [place] AMERICAIron binding capacity [Mass/Vol]177 ug/eZYpd138-430BcxccjhvgMercy Health [facility] on above:Order Comment: Specimen Type: BLOOD SPECIMENOrdering Facility: [facility] Address:[address] [place], [place] [address]Performed By: #### 2276-4, 65271-5, 3016-3 ####[facility] LABCLIA [id number] [place] [id number] [facility] CENTERIron/TIBC [Molar ratio]31.6 %Tfdplk13.0-57.0 [facility] on above:Order Comment: Specimen Type: BLOOD SPECIMENOrdering Facility: [facility] Address:[address] [place], [place] [address]Performed By: #### 2276-4, 81872-7, 3016-3 ####[facility] LABCLIA [id number] [place] [id number] [facility] SerPl-aCncon 73-11-2503BHM Qn0.808 m[IU]/L Normal0.270-4.200[facility] on above:Order Comment: Specimen Type: BLOOD SPECIMENOrdering Facility: [facility] Address:[address] [place] [address]Performed By: #### 2276-4, 04441-1, 3016-3 ####[facility] LABCLIA [id number] [place] [id number] [facility] W Auto Differential panel (Bld)on [id number] (Bld) [#/Vol]0.03 10*3/uLNormal <0.11COhio State [facility]ing [facility] on above:Order Comment: Specimen Type: BLOOD SPECIMENOrdering Facility: [facility] Address:[address] [place] [address]Hzgmmxtyn By: #### 72247-6 ####[facility] LABCLIA [id number] [place] [address] Basophils/100 WBC (Bld)0.5 %NormalMercy Health Perrysburg Hospital on above: Order Comment: Specimen Type: BLOOD SPECIMENOrdering Facility: [facility] Address:[address] [place], [place] [address]Performed By: #### 99222-8 ####[facility] LABCLIA [id number] [place], [place] [address]Btljwdlmbxdq cell count method Nom (Bld)AutoNormal [facility] on above:Order Comment: Specimen Type: BLOOD SPECIMENOrdering Facility: [facility] Address:[address] [place], [place] [address]Performed By: #### 40092-2 ####[facility] LABCLIA [id number] [place] [address] Eosinophils (Bld) [#/Vol]0.19 10*3/uLNormal<0.46[facility] Comment on above:Order Comment: Specimen Type: BLOOD SPECIMENOrdering Facility: [facility] Address:[address] [place] [address] Performed By: #### 67553-9 ####[facility] LABIA [id number] [place], [place] [address]Oikkplbzulu/100 WBC (Bld)3.3 % NormalMercy Health Perrysburg Hospital on above:Order Comment: Specimen Type: BLOOD SPECIMENOrdering Facility: [facility] Address:[address] [place], [place] [address]Performed By: #### 32095-1 ####[facility] LABIA [id number] [place] [address] Erythrocyte distribution width (RBC) [Ratio]13.8 %Xblyrc36.5-15.0[facility] on above:Order Comment: Specimen Type: BLOOD SPECIMENOrdering Facility: [facility] Address:[address] [place], [place] [address]Performed By: #### 70224-8 ####[facility] LABIA [id number] [place] [address] Hematocrit (Bld) [Volume fraction]36.5 %Low39.0-51.0[facility] Comment on above:Order Comment: Specimen Type: BLOOD SPECIMENOrdering Facility: [facility] Address:[address] [place] [address] Performed By: #### 55960-2 ####[facility] LABCLIA [id number] [place], [place] [address]Ytsylcctkm (Bld) [Mass/Vol]12.0 g/dLLow13.0-17.0[facility] on above:Order Comment: Specimen Type: BLOOD SPECIMENOrdering Facility: [facility] Address:[address] [place], [place] [address]Performed By: #### 80578-9 ####[facility] LABIA [id number] [place], [place] [address]EEUWWYNM GRAN %0.3 %NormalKettering Health [facility] Comment on above:Order Comment: Specimen Type: BLOOD SPECIMENOrdering Facility: [facility] Address:[address] [place] [address] Performed By: #### 64972-9 ####[facility] LABIA [id number] [place], [place] [address]LFUDWKPQ GRAN ABS<0.03Normal <0.10[facility] on above:Order Comment: Specimen Type: BLOOD SPECIMENOrdering Facility: [facility] Address:[address] [place], [place] [address]Performed By: #### 92547-2 ####[facility] LABIA [id number] [place] [address] Lymphocytes (Bld) [#/Vol]0.80 10*3/uLLow1.00-4.00[facility] Comment on above:Order Comment: Specimen Type: BLOOD SPECIMENOrdering Facility: [facility] Address:[address] [place] [address] Performed By: #### 82010-7 ####[facility] LABIA [id number] [place], [place] [address]Jiyfrfftzvc/100 WBC (Bld)13.9 % NormalMercy Health Perrysburg Hospital on above:Order Comment: Specimen Type: BLOOD SPECIMENOrdering Facility: [facility] Address:[address] [place], [place] [address]Performed By: #### 25939-7 ####[facility] LABIA [id number] [place], [place] [address]DYA (RBC) [Entitic mass]27.5 xcUtxxzi99.0-34.0[facility] on above:Order Comment: Specimen Type: BLOOD SPECIMENOrdering Facility: [facility] Address:[address] [place], [place] [address]Performed By: #### 78730-7 ####[facility] [id number] [place], [place] [address]LKSO (RBC) [Mass/Vol]32.9 g/jROydmzl04.5-36.0 [facility] on above:Order Comment: Specimen Type: BLOOD SPECIMENOrdering Facility: [facility] Address:[address] [place], [place] [address]Performed By: #### 02969-4 ####[facility] [id number] [place], [place] [address]DMN (RBC) [Entitic vol]83.7 ePBquwjt49.0-100.0[facility] on above: Order Comment: Specimen Type: BLOOD SPECIMENOrdering Facility: [facility] Address:[address] [place], [place] [address]Performed By: #### 03118-4 ####[facility] [id number] [place], [place] [address]Zclaqodks (Bld) [#/Vol]0.60 10*3/uLNormal<0.87[facility] on above:Order Comment: Specimen Type: BLOOD SPECIMENOrdering Facility: [facility] Address:[address] [place], [place] [address]Performed By: #### 17768-8 ####[facility] LABCLIA [id number] [place] [address] Monocytes/100 WBC (Bld)10.5 %NormalMercy Health Perrysburg Hospital on above: Order Comment: Specimen Type: BLOOD SPECIMENOrdering Facility: [facility] Address:[address] [place], [place] [address]Performed By: #### 97842-6 ####[facility] LABCLIA [id number] [place], [place] [address]Ltcztpdrcnu (Bld) [#/Vol]4.10 10*3/uLNormal1.45-7.50 [facility] on above:Order Comment: Specimen Type: BLOOD SPECIMENOrdering Facility: [facility] Address:[address] [place], [place] [address]Performed By: #### 44728-1 ####[facility] LABCLIA [id number] [place] [address] Neutrophils/100 WBC (Bld)71.5 %NormalMercy Health Perrysburg Hospital on above: Order Comment: Specimen Type: BLOOD SPECIMENOrdering Facility: [facility] Address:[address] [place], [place] [address]Performed By: #### 94662-4 ####[facility] LABCLIA [id number] [place], [place] [address]Exjwuqkyv RBC (Bld) [#/Vol]10*3/uLNormal<0.01[facility] on above:Order Comment: Specimen Type: BLOOD SPECIMENOrdering Facility: [facility] Address:[address] [place], [place] [address]Performed By: #### 09305-8 ####[facility] LABCLIA [id number] [place], [place] [address]Gteyqnyhf RBC/100 WBC (Bld) [Ratio]0.0 /100 WBCNormalCOhio State [facility] on above:Order Comment: Specimen Type: BLOOD SPECIMENOrdering Facility: [facility] Address:[address] [place], [place] [address]Performed By: #### 01359-6 ####[facility] LABCLIA [id number] [place], [place] [address]Cdwuhmbe mean volume (Bld) [Entitic vol]10.0 fL Normal9.0-12.7COhio State [facility] on above:Order Comment: Specimen Type: BLOOD SPECIMENOrdering Facility: [facility] Address:[address] [place], [place] [address]Performed By: #### 64750-4 ####[facility] LABIA [id number] [place] [address] Platelets (Bld) [#/Vol]174 10*3/hPPkjtil684-639JynnhjixnMercy Health Perrysburg Hospital on above:Order Comment: Specimen Type: BLOOD SPECIMENOrdering Facility: [facility] Address:[address] [place] [address] Performed By: #### 65281-5 ####[facility] LABCLIA [id number] [place], [place] [address]ATB (Bld) [#/Vol]4.36 10*6/uL Normal4.20-6.00[facility] on above:Order Comment: Specimen Type: BLOOD SPECIMENOrdering Facility: [facility] Address:[address] [place], [place] [address]Performed By: #### 65787-8 ####[facility] LABCLIA [id number] [place], [place] [address]MQF (Bld) [#/Vol]5.74 10*3/uLNormal3.70-11.00[facility] on above:Order Comment: Specimen Type: BLOOD SPECIMENOrdering Facility: [facility] Address:[address] [place] [address]Efagopyrt By: #### 10932-6 ####[facility] LABCLIA [id number] [place], [place] [address]TIQPYHft 70-81-9956WHEVAOHipoo (SP) Office ([place]AS[place]) GOPAL YATES JR ([id number]) 1965 M Date Time Provider Department 12/17/21 2:15 PM CONRAD ROJAS During your visit today, we recorded the following information about you: Temperature Pulse Respiration Blood pressure 97.7 degrees 56/minute 16/minute 132/65 Weight Height 87.8 kg 1.93 m Conrad Rojas MD 12/17/2021 4:03 PM Signed NAME: Gopal Yates CLINIC NO.: [id number] DATE OF SERVICE: December 17, 2021 (Latricia) Some elements in this clinic note that are critical to medical decision making have been carefully reviewed and included from a prior clinic note dated: December 03, 2021 (Imer) Referring Provider: Dr. Douglas Juárez Additional Clinicians involved in Gopal Milan JR's care: DIAGNOSIS: Elevated Matt:Lambda light chains CKD induced anemia ASSESSMENT: 56 year old gentleman with longstanding and poorly controlled T2DM and HTN with renal failure. CKD induced anemia underwent lab workup for possible underlying primary marrow conditions that were negative. PLAN: 1. No Aranesp today. 2. Follow up in weeks for labs and possible Aranesp. 3. Will obtain records [place] [facility] mainly interested in IV Iron dates. CURRENT [...] completed 5 doses of IV iron at [facility]. Initial Visit, October 02, 2021: Gopal Yates [...] Date Value 12/17/2021 174 (more content not included)...NormalLakeHealth Beachwood Medical Centerprehensive metabolic 2000 panelon 02-63-7363Naeyxjt [Mass/Vol]3.4 g/dLLow3.9-4.9COhio State [facility] on above:Order Comment: Specimen Type: BLOOD SPECIMENOrdering Facility: [facility] Address:[address] [place], [place] [address]Performed By: #### 85680-3 ####[facility] LABIA [id number] [place], [place] [address]BIS [Catalytic activity/Vol]159 U/HUmyg29-105AkgomafjuMercy Health Perrysburg Hospital on above:Order Comment: Specimen Type: BLOOD SPECIMENOrdering Facility: [facility] Address:[address] [place], [place] [address]Performed By: #### 87245-2 ####[facility] LABIA [id number] [place], [place] [address]WSC [Catalytic activity/Vol]12 U/NIfzxrs39-09 [facility] on above:Order Comment: Specimen Type: BLOOD SPECIMENOrdering Facility: [facility] Address:[address] [place], [place] [address]Performed By: #### 67259-7 ####[facility] LABCLIA [id number] [facility], [place] [address]Rpmpw gap [Moles/Vol]9 mmol/LNormal9-18[facility] on above:Order Comment: Specimen Type: BLOOD SPECIMENOrdering Facility: [facility] Address:[address] [place], [place] [address]Performed By: #### 94056-5 ####[facility] LABCLIA [id number] [facility] [place], [place] [address]TOU [Catalytic activity/Vol]14 U/EAljazo44-73VjnobhshpMercy Health Perrysburg Hospital on above:Order Comment: Specimen Type: BLOOD SPECIMENOrdering Facility: [facility] Address:[address] [place], [place] [address]Performed By: #### 37573-1 ####[facility] LABCLIA [id number] [place], [place] [address]Pjnmnmqoz [Mass/Vol]0.4 mg/dLNormal0.2-1.3COhio State [facility]ing [facility] on above:Order Comment: Specimen Type: BLOOD SPECIMENOrdering Facility: [facility] Address:[address] [place], [place] [address]Performed By: #### 08543-6 ####[facility] LABCLIA [id number] [facility] [place], [place] [address]Cvzvasq [Mass/Vol]8.3 mg/dLLow8.5-10.2COhio State [facility]ing [facility] on above:Order Comment: Specimen Type: BLOOD SPECIMENOrdering Facility: [facility] Address:[address] [place], [place] [address]Performed By: #### 31199-8 ####[facility] LABCLIA [id number] [place], [place] [address]Tvkzwlhk [Moles/Vol]108 mmol/YQilh02-106ObwwdcohgMercy Health Perrysburg Hospital on above:Order Comment: Specimen Type: BLOOD SPECIMENOrdering Facility: [facility] Address:[address] [place], [place] [address]Performed By: #### 18091-8 ####[facility] LABCLIA [id number] [facility] [place], [place] [address]RX0 [Moles/Vol]21 mmol/TOhv47-29DjcheszbdMercy Health Perrysburg Hospital on above:Order Comment: Specimen Type: BLOOD SPECIMENOrdering Facility: [facility] Address:[address] [place], [place] [address]Performed By: #### 39515-5 ####[facility] LABCLIA [id number] [facility] [place], [place] [address]Wzecrjbarz [Mass/Vol] 3.84 mg/dLHigh0.73-1.22[facility] on above:Order Comment: Specimen Type: BLOOD SPECIMENOrdering Facility: [facility] Address:[address] [place], [place] [address]Performed By: #### 26699-4 ####[facility] LABCLIA [id number] [facility] [place] [address]QLARCLBEA GLOMERULAR FILTRATION RATE17 mL/min/1.73m???Low >=60[facility] on above:Order Comment: Specimen Type: BLOOD SPECIMENOrdering Facility: [facility] Address:[address] [place], [place] [address]Result Comment: Estimated Glomerular Filtration Rate (eGFR) is calculated using the 2020 CKD-EPI creatinine equation. This equation utilizes serum creatinine, sex, and age as parameters. The creatinine assay has traceable calibration to isotope dilution-mass spectrometry. Refer to KDIGO guidelines for clinical interpretation. In patients with unstable renal function, e.g. those with acute kidney injury, the eGFR may not accurately reflect actual GFR.Performed By: #### 57140-1 ####[facility] LABCLIA [id number] [place], [place] [address]Rychqux [Mass/Vol]87 mg/uNHaohmg19-95XmveyajxwMercy Health Perrysburg Hospital on above:Order Comment: Specimen Type: BLOOD SPECIMENOrdering Facility: [facility] Address:[address] [place], [place] [address]Result Comment: The [place] Diabetes Association (ADA) provides guidance for cutoff values for fast ing glucose and random glucose. The ADA defines [...] Standards of Medical Care in Diabetes 2016, [place] [employer]. Diabetes Care. 2016.39(Suppl 1).Performed By: #### 31475-8 ####[facility] LABCLIA [id number] [place], [place] [address]Lywbhysup [Moles/Vol]4.0 mmol/LNormal3.7-5.1COhio State Harding Hospital on above:Order Comment: Specimen Type: BLOOD SPECIMENOrdering Facility: [facility] Address:[address] [place], [place] [address]Performed By: #### 55860-3 ####[facility] LABIA [id number] [place], [place] [address]Ufhjosq [Mass/Vol]6.8 g/dLNormal6.3-8.0[facility] on above:Order Comment: Specimen Type: BLOOD SPECIMENOrdering Facility: [facility] Address:[address] [place], [place] [address]Performed By: #### 45509-8 ####[facility] LABIA [id number] [place], [place] [address]Zqjutj [Moles/Vol]138 mmol/VKtkyjy803-420DjrocdxyaMercy Health Perrysburg Hospital on above:Order Comment: Specimen Type: BLOOD SPECIMENOrdering Facility: [facility] Address:[address] [place], [place] [address]Performed By: #### 29066-9 ####[facility] LABCLIA [id number] [place], [place] [address]Cnbx nitrogen [Mass/Vol]50 mg/dLHigh9-24[facility] on above:Order Comment: Specimen Type: BLOOD SPECIMENOrdering Facility: [facility] Address:[address] [place], [place] [address]Performed By: #### 62117-6 ####[facility] LABCLIA [id number] [place], [place] [address]VNG B SURFACE ANTIGEN SCREENon 90-02-5687LLxLq Screen NegativeNormalNegativeThe [facility] Medical CenterComment on above:Performed By: #### HBSANS #### [facility] [address] [address] [address] Shilo Montgomery INTACTon 61-73-4457FNM, Nxjmzw64 pg/rGIgocgp61-64Xfd [facility] on above:Performed By: #### VITAD, FERR, FETIBC, B12FOL #### [facility] [address] [address] [address] Shilo Vizcarra 25-[place] LABCORPon 92-60-4945Pyxagzd D, 25-Kbpcuzj89.9 ng/mL Xajtnm20.0-100.0The [facility] on above:Result Comment: Vitamin D deficiency has been defined by the [place] of Medicine and an Endocrine Society practice guideline as a level of serum 25-OH vitamin D less than 20 ng/mL (1,2). The Endocrine Society went on to further define vitamin D insufficiency as a level between 21 and 29 ng/mL (2). 1. IOM ([place] of Medicine). 2010. Dietary reference intakes for calcium and D. [place]: The National Academies Press. 2. Sherine MORILLO, Violetta MCDONALD, [place] REY, et al. Evaluation, treatment, and prevention of vitamin D deficiency: an Endocrine Society clinical practice guideline. JCEM. 2010; 96(7):1911-30.Performed By: #### HBSANS #### [facility] [address] [place] [address] Dr. Shilo Wall 48-86-1346EDLFZmegcvfkz (HEMASA) GOPAL YATES JR ([id number]) 1965 M Date Time Provider Department 12/04/21 MONIK DOTSON During your visit today, we recorded the following information about you: Dana Simpson [facility] 12/04/2021 10:17 AM Signed Brionna from [facility] [place] [facility] called back regarding patients iron infusions. She said he got 2 sets of 5 doses. Dates of infusion are: 07/22/21, 07/31/21, 08/06/21, 08/13/21, 08/20/21 10/20/21, 10/27/21, 11/03/21, 11/10/21, 11/17/21 Monik Dotson APRN.CNP 12/04/2021 11:47 AM Signed Thanks! Monik Dotson APRN.CNP Allergies As of Date: 12/04/2021 Noted Allergy Reaction SULFA (SULFONAMIDE ANTIBIOTICS) 10/01/2021 16 - Unknown Date Reviewed: 12/04/2021 Reviewed by: Monik Dotson APRN.CNP - Fully Assessed Reason for Visit: Infusions [...] (*10/08/2021 Encounter Status:Closed by DANA APPLE on 12/04/21NoalCLake County Memorial Hospital - WestFERRITINon 42-94-8041Eitbchfu [Mass/Vol]272.0 ng/mLNormal 26.0-388.0The [facility] CenterComment on above:Performed By: #### HBSANS #### [facility] [address] [place] [address] Dr. Shilo Hernandez AND TIBCon 12-04-2021% FSTQSWXNKJ81.8 %NormalThe [facility] Regional Medical CenterComment on above:Performed By: #### HBSANS #### [facility] [address] [place] [address] Dr. Shilo Hernandez [Mass/Vol]57.0 ug/dLCritically low65.0-175.0The [facility] CenterComment on above:Performed By: #### HBSANS #### [facility] [address] [place] [address] Dr. Shilo Marcano RPMKVA252.0 ug/dLCritically ckm709.0-450.0The [facility] CenterComment on above:Performed By: #### HBSANS #### [facility] [address] [place] [address] Dr. Shilo CamachoGNESIUMon 54-59-9338Grfkkvecg [Mass/Vol]1.9 mg/dLNormal1.8-2.4 The [facility] CenterComment on above:Performed By: #### HBSANS #### [facility] [address] [address] [address] Shilo LamPROF 14(COMP METB)on 82-99-0145Khkruxg [Mass/Vol]2.9 g/dL Critically low3.4-5.0The [facility] CenterComment on above:Performed By: #### HBSANS #### [facility] [address] [address] [address] Shilo LamAlbumin/Globulin [Mass ratio]0.6 {ratio}NormalThe [facility] Medical CenterComment on above:Performed By: #### HBSANS #### [facility] [address] [place] [address] Dr. Shilo MillerP [Catalytic activity/Vol]150 U/LCritically kyhl35-751Zpn [facility] CenterComment on above:Performed By: #### HBSANS #### [facility] [address] [address] [address] Shilo Ag [Catalytic activity/Vol]21 U/GZgwlii28-52Rse [facility] CenterComment on above:Performed By: #### HBSANS #### [facility] [address] [place] [address] Dr. Shilo Renee gap [Moles/Vol]14.7 mmol/LNormalThe [facility] Comment on above:Performed By: #### HBSANS #### [facility] [address] [address] [address] Shilo LamAST [Catalytic activity/Vol]19 U/ULmgjsb31-04Rao [facility] CenterComment on above:Performed By: #### HBSANS #### [facility] [address] [place] [address] Dr. Shilo LamBilirubin [Mass/Vol]0.6 mg/dLNormal0.2-1.0The [facility] Comment on above:Performed By: #### HBSANS #### [facility] [address] [address] [address] Shilo LamCalcium [Mass/Vol]8.4 mg/dLCritically low8.5-10.1The [facility] CenterComment on above:Performed By: #### HBSANS #### [facility] [address] [address] [address] Shilo LamChloride [Moles/Vol]109 mmol/LCritically rmnw47-248Fin [facility] CenterComment on above:Performed By: #### HBSANS #### [facility] [address] [address] [address] Shilo LamCO2 [Moles/Vol]20.4 mmol/LCritically low21.0-32.0The [facility] Medical CenterComment on above:Performed By: #### HBSANS #### [facility] [address] [place] [address] Dr. Shilo LamCreatinine [Mass/Vol]3.71 mg/dLCritically high0.70-1.30The [facility] CenterComment on above:Performed By: #### HBSANS #### [facility] [address] [address] [address] Shilo WoodwardGFR-AF FCFAKEPQ16 mL/min/1.97t6Rhvdmywvol low>=60The [facility] CenterComment on above:Performed By: #### HBSANS #### [facility] [address] [address] [address] Shilo WoodwardGFR-NON AF HARKYWYQ33 mL/min/1.52h1Rjacmnsnwj low>=60The [facility] CenterComment on above:Performed By: #### HBSANS #### [facility] [address] [address] [address] Shilo LamGlobulin (S) [Mass/Vol]4.5 g/dLNoalThe [facility] CenterComment on above:Performed By: #### HBSANS #### [facility] [address] [place] [address] Dr. Shilo LamGlucose [Mass/Vol]87 mg/aWNevjvy54-778Wsw [facility] Comment on above:Performed By: #### HBSANS #### [facility] [address] [address] [address] Shilo LamPotassium [Moles/Vol]4.1 mmol/LNormal3.5-5.1The [facility] Comment on above:Performed By: #### HBSANS #### [facility] [address] [address] [address] Shilo LamProtein [Mass/Vol]7.4 g/dLNormal6.4-8.2The [facility] Comment on above:Performed By: #### HBSANS #### [facility] [address] [address] [address] Shilo LamSodium [Moles/Vol]140 mmol/AMrudly763-567Lju [facility] Comment on above:Performed By: #### HBSANS #### [facility] [address] [address] [address] Shilo LamUrea nitrogen [Mass/Vol]53.0 mg/dLCritically high7.0-18.0The [facility] CenterComment on above:Performed By: #### HBSANS #### [facility] [address] [address] [address] Shilo Armendariz nitrogen/Creatinine [Mass ratio]14.3 mg/mgNormalThe [facility] Medical CenterComment on above:Performed By: #### HBSANS #### [facility] [address] [address] [address] Shilo Ibrahmi RANDOMon 89-18-0069Ghzsimune Ql (U)NegativeNormalNEGATIVEMercy HealthComment on above:Performed By: #### HH #### [facility] [address] [address] [address] Shilo Brucearity (U)CLEARNormalCLEARThe [facility] Medical CenterComment on above: Performed By: #### HH #### [facility] [address] [place] [address] Dr. Shilo Devine (U)YELLOWNormalYELLOWThe Community Regional Medical CenterComment on above: Performed By: #### HH #### [facility] [address] [address] [address] Shilo LamGlucose Ql (U)NegativeNormalNEGATIVEMercy HealthComment on above:Performed By: #### HH #### [facility] [address] [address] [address] Shilo LamHemoglobin Ql (U)NegativeNormalNEGATIVEMercy Health Comment on above:Performed By: #### HH #### [facility] [address] [place] [address] Dr. Shilo LamKetones Ql (U)NegativeNormalNEGATIVEMercy HealthComment on above:Performed By: #### HH #### [facility] [address] [place] [address] Dr. Shilo LamLEUKOCYTESNegativeNormalNEGATIVEThe [facility] Medical CenterComment on above:Performed By: #### HH #### [facility] [address] [place] [address] Dr. Shilo LamNitrite Ql (U)NegativeNormalNEGATIVEMercy HealthComment on above:Performed By: #### HH #### [facility] [address] [place] [address] Dr. Shilo LampH (U)6.5 [pH]Normal5-9The [facility] on above: Performed By: #### HH #### [facility] [address] [place] [address] Dr. Shilo LamSPEC GRAVITY1.102Yzxbir6.005-<=1.025The [facility] Medical CenterComment on above:Performed By: #### HH #### [facility] [address] [address] [address] Shilo LamUA PROTEINNegativeNormalNEGATIVE/ TRACEMercy Health Comment on above:Performed By: #### HH #### [facility] [address] [place] [address] Dr. Shilo LamUrobilinogen Qn (U)0.2 {Gama'U}/dLNormal0.2 - 1.0The [facility] Hospitalment on above:Performed By: #### HH #### [facility] [address] [place] [address] Dr. Shilo Abreu ACID SERUMon 65-57-4116Riidn [Mass/Vol]5.6 mg/dLNormal 3.5-7.2The [facility] Medical CenterComment on above:Performed By: #### HBSANS #### [facility] [address] [place] [address] Dr. Shilo Reeves T PROTEIN CREAT RATIOon 50-78-5140Facoqyj (U) [Mass/Vol] 648.0 mg/dLCritically high<=12.0The [facility] Hospitalment on above:Performed By: #### VITAD, FERR, FETIBC, B12FOL #### [facility] [address] [place] [address] Dr. Shilo Bourne PROT CREAT RAT11.10NormalThe [facility] Regional Medical CenterComment on above:Performed By: #### VITAD, FERR, FETIBC, B12FOL #### [facility] [address] [place] [address] Dr. Shilo Reeves CREAT58.37 mg/kTQzebfc09.00-300.00The [facility] Comment on above:Performed By: #### VITAD, FERR, FETIBC, B12FOL #### [facility] [address] [place] [address] Dr. Shilo Granger B12 AND FOLATEon 84-29-9211Snrvjshnv (Vitamin B12) [Mass/Vol] 600.0 pg/wTGwrdqw112.0-986.0The [facility] Hospitalment on above:Performed By: #### HBSANS #### [facility] [address] [place] [address] Dr. Shilo LamFOLATE9.00 ng/mLNormal8.60-58.90The [facility] Hospitalment on above:Performed By: #### HBSANS #### [facility] [address] [place] [address] Dr. Shilo Ta W Auto Differential panel (Bld)on 07-62-2200Jxwyxscow (Bld) [#/Vol]0.03 10*3/uLNormal<0.11COhio [facility] on above:Order Comment: Specimen Type: BLOOD SPECIMENOrdering Facility: [facility] Address:[address] [place], [place] [address]Performed By: #### 24811-6 ####[facility] [id number] [place], [place] [address]Jqgwvtyoy/100 WBC (Bld)0.4 %NormalMercy Health Perrysburg Hospital on above:Order Comment: Specimen Type: BLOOD SPECIMENOrdering Facility: [facility] Address:[address] [place], [place] [address]Performed By: #### 70215-7 ####[facility] LABCLIA [id number] [place], [place] [address]Znxqnmdrekfb cell count method Nom (Bld)AutoNormalCOhio State Harding Hospital on above:Order Comment: Specimen Type: BLOOD SPECIMENOrdering Facility: [facility] Address:[address] [place], [place] [address]Performed By: #### 70417-1 ####[facility]CL[facility] [id number] [place], [place] [address]Vocdbconufd (Bld) [#/Vol]0.24 10*3/uLNormal<0.46[facility] on above:Order Comment: Specimen Type: BLOOD SPECIMENOrdering Facility: [facility] Address:[address] [place], [place] [address]Performed By: #### 16604-9 ####[facility] [id number] [place] [address] Eosinophils/100 WBC (Bld)3.5 %[facility] on above: Order Comment: Specimen Type: BLOOD SPECIMENOrdering Facility: [facility] Address:[address] [place], [place] [address]Performed By: #### 91587-0 ####[facility]IA [id number] [place], [place] [address]Ajwcohyojfj distribution width (RBC) [Ratio]15.4 %High 11.5-15.0[facility] MemorialComsturgis hospital on above:Order Comment: Specimen Type: BLOOD SPECIMENOrdering Facility: [facility] Address:[address] [place], [place] [address]Performed By: #### 10792-6 ####[facility] [id number] [place] [address] Hematocrit (Bld) [Volume fraction]36.6 %Low39.0-51.0[facility] Comment on above:Order Comment: Specimen Type: BLOOD SPECIMENOrdering Facility: [facility] Address:[address] [place] [address] Performed By: #### 11378-2 ####[facility]IA [id number] [place], [place] [address]Byfugvzrud (Bld) [Mass/Vol]11.8 g/dLLow13.0-17.0[facility] MemorialComsturgis hospital on above:Order Comment: Specimen Type: BLOOD SPECIMENOrdering Facility: [facility] Address:[address] [place], [place] [address]Performed By: #### 51030-2 ####[facility] [id number] [place], [place] [address]HCYPBYOD GRAN %0.3 %NormalKettering Health Greene Memorial Comment on above:Order Comment: Specimen Type: BLOOD SPECIMENOrdering Facility: [facility] Address:[address] [place] [address] Performed By: #### 82037-4 ####[facility] [id number] [place], [place] [address]MACYKJBC GRAN ABS<0.03Normal <0.10[facility] on above:Order Comment: Specimen Type: BLOOD SPECIMENOrdering Facility: [facility] Address:[address] [place], [place] [address]Performed By: #### 85489-0 ####[facility]IA [id number] [place] [address] Lymphocytes (Bld) [#/Vol]0.72 10*3/uLLow1.00-4.00[facility] Comment on above:Order Comment: Specimen Type: BLOOD SPECIMENOrdering Facility: [facility] Address:[address] [place] [address] Performed By: #### 34306-4 ####[facility]IA [id number] [place], [place] [address]Zmesxikojci/100 WBC (Bld)10.6 % NormalMercy Health Perrysburg Hospital on above:Order Comment: Specimen Type: BLOOD SPECIMENOrdering Facility: [facility] Address:[address] [place], [place] [address]Performed By: #### 35117-8 ####[facility]IA [id number] [place], [place] [address]BYR (RBC) [Entitic mass]27.8 ddElhjno14.0-34.0[facility] on above:Order Comment: Specimen Type: BLOOD SPECIMENOrdering Facility: [facility] Address:[address] [place], [place] [address]Performed By: #### 35814-5 ####[facility]IA [id number] [place], [place] [address]LZTX (RBC) [Mass/Vol]32.2 g/nYLbdatl94.5-36.0 [facility] on above:Order Comment: Specimen Type: BLOOD SPECIMENOrdering Facility: [facility] Address:[address] [place], [place] [address]Performed By: #### 51638-5 ####[facility] LABCLIA [id number] [place], [place] [address]TET (RBC) [Entitic vol]86.3 tSHnqlwd30.0-100.0[facility] on above: Order Comment: Specimen Type: BLOOD SPECIMENOrdering Facility: [facility] Address:[address] [place], [place] [address]Performed By: #### 92716-4 ####[facility] LABCLIA [id number] [place], [place] [address]Mczsmuiez (Bld) [#/Vol]0.82 10*3/uLNormal<0.87[facility] on above:Order Comment: Specimen Type: BLOOD SPECIMENOrdering Facility: [facility] Address:[address] [place], [place] [address]Performed By: #### 51914-2 ####[facility] [id number] [place] [address] Monocytes/100 WBC (Bld)12.1 %NormalMercy Health Perrysburg Hospital on above: Order Comment: Specimen Type: BLOOD SPECIMENOrdering Facility: [facility] Address:[address] [place], [place] [address]Performed By: #### 19592-4 ####[facility]CL[facility] [id number] [place], [place] [address]Qidvzvkbumz (Bld) [#/Vol]4.95 10*3/uLNormal1.45-7.50 [facility] on above:Order Comment: Specimen Type: BLOOD SPECIMENOrdering Facility: [facility] Address:[address] [place], [place] [address]Performed By: #### 87974-6 ####[facility] [id number] [place] [address] Neutrophils/100 WBC (Bld)73.1 %NormalMercy Health Perrysburg Hospital on above: Order Comment: Specimen Type: BLOOD SPECIMENOrdering Facility: [facility] Address:[address] [place], [place] [address]Performed By: #### 76457-8 ####[facility]CL[facility] [id number] [place], [place] [address]Mcpztnkgb RBC (Bld) [#/Vol]10*3/uLNormal<0.01[facility] on above:Order Comment: Specimen Type: BLOOD SPECIMENOrdering Facility: [facility] Address:[address] [place], [place] [address]Performed By: #### 12712-1 ####[facility] [id number] [place], [place] [address]Ahfzysywz RBC/100 WBC (Bld) [Ratio]0.0 /100 WBCNormalCOhio State [facility]ing Hospital on above:Order Comment: Specimen Type: BLOOD SPECIMENOrdering Facility: [facility] Address:[address] [place], [place] [address]Performed By: #### 40729-4 ####[facility] [id number] [place], [place] [address]Kseqopoh mean volume (Bld) [Entitic vol]9.9 fL Normal9.0-12.7COhio State [facility]ing Hospital on above:Order Comment: Specimen Type: BLOOD SPECIMENOrdering Facility: [facility] Address:[address] [place], [place] [address]Performed By: #### 31396-1 ####[facility] [id number] [place] [address] Platelets (Bld) [#/Vol]136 10*3/nYQzy129-753IzzzxpmigMercy Health Perrysburg Hospital on above:Order Comment: Specimen Type: BLOOD SPECIMENOrdering Facility: [facility] Address:[address] [place], [place] [address]Performed By: #### 07480-8 ####[facility] LABCLIA [id number] [place], [place] [address]PNM (Bld) [#/Vol]4.24 10*6/uLNormal4.20-6.00 [facility] on above:Order Comment: Specimen Type: BLOOD SPECIMENOrdering Facility: [facility] Address:[address] [place] [phone] By: #### 48182-6 ####[facility]ITALBRANDY [facility] LABCLIA [id number] [place], [place] [address]TUC (Bld) [#/Vol]6.78 10*3/uLNormal3.70-11.00[facility] on above: Order Comment: Specimen Type: BLOOD SPECIMENOrdering Facility: [facility] Address:[address] [place] [phone] By: #### 64829-5 ####[facility]IA [id number] [place], [place] [address]ZCDSLGec 34-61-6317ULCYLFYmiee (SP) Office (HEMASA) GOPAL YATES JR ([id number]) 1965 M Date Time Provider Department 12/03/21 2:00 PM MONIK DOTSON During your visit today, we recorded the following information about you: Temperature Pulse Respiration Blood pressure 97.6 degrees 60/minute 16/minute 142/69 Weight Height 89.6 kg 1.93 m Monik Dotson APRN.CNP 12/03/2021 2:17 PM Signed NAME: Gopal Yates [facility] NO.: [id number] DATE OF SERVICE: December 03, 2021 Referring [...] possible Aranesp. 3. [place] [facility] [place]. CURRENT [...] completed 5 doses of IV iron [place] [facility]. Initial Visit, October 02, 2021: Gopal Yates [...] kidney disease (HCC) 10/08 (more content not included)...NormalLakeHealth Beachwood Medical Centerprehensive metabolic 2000 panelon 24-63-8053Bctilez [Mass/Vol]3.5 g/dLLow3.9-4.9CLake County [facility] WestComsturgis hospital on above:Order Comment: Specimen Type: BLOOD SPECIMENOrdering Facility: [facility] Address:[address] [place] [address] Performed By: #### 45505-1 ####[facility] LABCLIA [id number] [place], [place] [address]QDH [Catalytic activity/Vol]166 U/TWfir97-463CmxdzupujMercy Health Perrysburg Hospital on above:Order Comment: Specimen Type: BLOOD SPECIMENOrdering Facility: [facility] Address:[address] [place], [place] [address]Performed By: #### 17672-9 ####[facility]CL[facility] [id number] [place] [address] ALT [Catalytic activity/Vol]13 U/MYalqoq34-70HykiqvmfzMercy Health Perrysburg Hospital on above:Order Comment: Specimen Type: BLOOD SPECIMENOrdering Facility: [facility] Address:[address] [place] [address] Performed By: #### 97005-5 ####[facility] LABCLIA [id number] [place], [place] [address]Plrgb gap [Moles/Vol]10 mmol/L Normal9-18[facility] on above:Order Comment: Specimen Type: BLOOD SPECIMENOrdering Facility: [facility] Address:[address] [place], [place] [address]Performed By: #### 19124-9 ####[facility]CL[facility] [id number] [place] [address] AST [Catalytic activity/Vol]17 U/ZGjwzhr80-74YbzgtjdtdMercy Health Perrysburg Hospital on above:Order Comment: Specimen Type: BLOOD SPECIMENOrdering Facility: [facility] Address:[address] [place] [address] Performed By: #### 76776-7 ####[facility] LABCLIA [id number] [place], [place] [address]Jspcwyxjt [Mass/Vol]0.5 mg/dL Normal0.2-1.3COhio State [facility]ing Hospital on above:Order Comment: Specimen Type: BLOOD SPECIMENOrdering Facility: [facility] Address:[address] [place], [place] [address]Performed By: #### 84234-0 ####[facility]CL[facility] [id number] [place] [address] Calcium [Mass/Vol]8.9 mg/dLNormal8.5-10.2COhio State Harding Hospital on above:Order Comment: Specimen Type: BLOOD SPECIMENOrdering Facility: [facility] Address:[address] [place], [place] [address]Performed By: #### 08758-1 ####[facility]CLIA [id number] [place], [place] [address]Idgjklke [Moles/Vol]112 mmol/BMyss94-636KufbjywhrMercy Health Perrysburg Hospital on above:Order Comment: Specimen Type: BLOOD SPECIMENOrdering Facility: [facility] Address:[address] [place], [place] [address]Performed By: #### 66450-9 ####[facility]CLIA [id number] [place], [place] [address]ZX5 [Moles/Vol]20 mmol/TDbe03-35YnrzbkhciMercy Health Perrysburg Hospital on above:Order Comment: Specimen Type: BLOOD SPECIMENOrdering Facility: [facility] Address:[address] [place], [place] [address]Performed By: #### 70866-8 ####[facility] LABCLIA [id number] [place], [place] [address]Yqwnvwoeqz [Mass/Vol]3.74 mg/dLHigh0.73-1.22[facility] on above:Order Comment: Specimen Type: BLOOD SPECIMENOrdering Facility: [facility] Address:[address] [place], [place] [address]Performed By: #### 13666-6 ####[facility] LABCLIA [id number] [place], [place] [address]VWBUBBXEF GLOMERULAR FILTRATION RATE18 mL/min/1.73m???Low>=60[facility] Comment on above:Order Comment: Specimen Type: BLOOD SPECIMENOrdering Facility: [facility] Address:[address] [place] [address] Result Comment: Estimated Glomerular Filtration Rate (eGFR) is calculated using the 2020 CKD-EPI creatinine equation. This equation utilizes serum creatinine, sex, and age as parameters. The creatinine assay has traceable calibration to isotope dilution-mass spectrometry. Refer to KDIGO guidelines for clinical interpretation. In patients with unstable renal function, e.g. those with acute kidney injury, the eGFR may not accurately reflect actual GFR.Performed By: #### 09954-5 ####[facility] LABCLIA [id number] [place], [place] [address]Xbnmohw [Mass/Vol]111 mg/iEVhye24-77XboajkornKettering Health Greene MemorialComment on above:Order Comment: Specimen Type: BLOOD SPECIMENOrdering Facility: [facility] Address:[address] [place], [place] [address]Result Comment: The [place] Diabetes [employer] (ADA) provides guidance for cutoff [...] Standards of Medical Care in Diabetes 2016, [place] [employer]. Diabetes Care. 2016.39(Suppl 1).Performed By: #### 17182-1 ####[facility] LABCLIA [id number] [place], [place] [address]Tjpimujuv [Moles/Vol]4.1 mmol/LNormal3.7-5.1COhio State Harding Hospital on above:Order Comment: Specimen Type: BLOOD SPECIMENOrdering Facility: [facility] Address:[address] [place], [place] [address]Performed By: #### 77269-8 ####[facility] LABCLIA [id number] [place], [place] [address]Bgfzwur [Mass/Vol]6.6 g/dLNormal6.3-8.0[facility] on above:Order Comment: Specimen Type: BLOOD SPECIMENOrdering Facility: [facility] Address:[address] [place], [place] [address]Performed By: #### 59793-5 ####[facility] LABCLIA [id number] [place], [place] [address]Kvpdpq [Moles/Vol]142 mmol/OLvefmz752-053RbbilahcdMercy Health Perrysburg Hospital on above:Order Comment: Specimen Type: BLOOD SPECIMENOrdering Facility: [facility] Address:[address] [place], [place] [address]Performed By: #### 99971-4 ####[facility]IA [id number] [place], [place] [address]Ffma nitrogen [Mass/Vol]52 mg/dLHigh9-24[facility] on above:Order Comment: Specimen Type: BLOOD SPECIMENOrdering Facility: [facility] Address:[address] [place], [place] [address]Performed By: #### 53745-7 ####[facility] [id number] [place], [place] [address]FEN W Auto Differential panel (Bld)on 31-69-1570Rpmlkeqrh (Bld) [#/Vol]10*3/uLNormal<0.11COhio State [facility]ing Hospital on above:Order Comment: Specimen Type: BLOOD SPECIMEN [facility] Address: [address] [place], [place] [address]Performed By: #### 77007-6 #### [facility] CLIA [id number] [address] [place], [place] [address]Suxiyksly/100 WBC (Bld)0.4 %NormalKettering Health Greene Memorial Comment on above:Order Comment: Specimen Type: BLOOD SPECIMEN [facility] Address: [address] [place], [place] [address]Performed By: #### 09826-9 #### [facility] CLIA [id number] [address] [place], [place] [address]Vosgvbadlzsy cell count method Nom (Bld)AutoNormalCOhio State Harding Hospital on above:Order Comment: Specimen Type: BLOOD SPECIMEN [facility] Address: [address] [place], [place] [address]Performed By: #### 43880-2 #### [facility] CLIA [id number] [address] [place] [address]Pdhejerzrja (Bld) [#/Vol]0.16 10*3/uLNormal<0.46[facility] on above:Order Comment: Specimen Type: BLOOD SPECIMEN [facility] Address: [address] [place], [place] [address]Performed By: #### 11660-0 #### [facility] CLIA [id number] [address] [place] [address]Tuxwynpgkbf/100 WBC (Bld)2.8 %NormalKettering Health Greene Memorial Comment on above:Order Comment: Specimen Type: BLOOD SPECIMEN [facility] Address: [address] [place], [place] [address]Performed By: #### 29474-9 #### [facility] CLIA [id number] [address] [place] [address]Oijiielrjfz distribution width (RBC) [Ratio]15.5 %High 11.5-15.0[facility] ClevelandComment on above:Order Comment: Specimen Type: BLOOD SPECIMEN [facility] Address: [address] [place], [place] [address]Performed By: #### 68171-8 #### [facility] CLIA [id number] [address] [place], [place] [address]Weigazmsyh (Bld) [Volume fraction]31.7 %Low39.0-51.0[facility] on above:Order Comment: Specimen Type: BLOOD SPECIMEN [facility] Address: [address] [place], [place] [address]Performed By: #### 41728-1 #### [facility] CLIA [id number] [address] [place] [address]Akjnxwyouj (Bld) [Mass/Vol]10.2 g/dLLow13.0-17.0[facility] MemorialComment on above:Order Comment: Specimen Type: BLOOD SPECIMEN [facility] Address: [address] [place], [place] [address]Performed By: #### 26317-3 #### [facility] CLIA [id number] [address] [place] [address]TOJTBZTX GRAN %0.4 %NormalMercy Health Perrysburg Hospital on above:Order Comment: Specimen Type: BLOOD SPECIMEN [facility] Address: [address] [place], [place] [address]Performed By: #### 44822-1 #### [facility] CLIA [id number] [address] [place] [address]BNCKZTKW GRAN ABS<0.03Normal<0.10[facility] Comment on above:Order Comment: Specimen Type: BLOOD SPECIMEN [facility] Address: [address] [place], [place] [address]Performed By: #### 03606-1 #### [facility] CLIA [id number] [address] [place] [address]Btgjarknzau (Bld) [#/Vol]0.66 10*3/uLLow1.00-4.00[facility] on above:Order Comment: Specimen Type: BLOOD SPECIMEN [facility] Address: [address] [place], [place] [address]Performed By: #### 24720-2 #### [facility] CLIA [id number] [address] [place] [address]Qxtddkcwgox/100 WBC (Bld)11.6 %NormalMercy Health Perrysburg Hospital on above:Order Comment: Specimen Type: BLOOD SPECIMEN [facility] Address: [address] [place], [place] [address]Performed By: #### 33361-8 #### [facility] CLIA [id number] [address] [place] [address]JVN (RBC) [Entitic mass]27.6 odMsvmtp21.0-34.0[facility] on above:Order Comment: Specimen Type: BLOOD SPECIMEN [facility] Address: [address] [place], [place] [address]Performed By: #### 63239-5 #### [facility] CLIA [id number] [address] [place] [address] [id number] (RBC) [Mass/Vol]32.2 g/lHBofzsz90.5-36.0[facility] on above:Order Comment: Specimen Type: BLOOD SPECIMEN Ordering Facility: [facility] Address: [address] [place], [place] [address]Performed By: #### 12178-4 #### [facility] CLIA [id number] [address] [place] [address] [id number] (RBC) [Entitic vol]85.7 hUJqzxma64.0-100.0[facility] on above:Order Comment: Specimen Type: BLOOD SPECIMEN Ordering Facility: [facility] Address: [address]Performed By: #### 35051-4 #### [facility] CLIA [id number] [address] [place] [address] [id number] (Bld) [#/Vol]0.70 10*3/uLNormal<0.87[facility] on above:Order Comment: Specimen Type: BLOOD SPECIMEN Ordering Facility: [facility] Address: [address] [place], [place] [id number] By: #### 53098-6 #### [facility] CLIA [id number] [address] [place] [address] [id number]/100 WBC (Bld)12.3 %NormalK[facility] Comment on above:Order Comment: Specimen Type: BLOOD SPECIMEN Ordering Facility: [facility] Address: [address] [place], [place] [address]Performed By: #### 68583-8 #### [facility] CLIA [id number] [address] [place] [address] 99427Fidlyhiiqxz (Bld) [#/Vol]4.12 10*3/uLNormal1.45-7.50[facility] on above:Order Comment: Specimen Type: BLOOD SPECIMEN Ordering Facility: [facility] Address: [address] [place], [place] [address]Performed By: #### 48010-5 #### [facility] CLIA [id number] [address] [place] [address] 17977Frlznulkudu/100 WBC (Bld)72.5 %NormalKettering Health Greene MemorialComsturgis hospital on above:Order Comment: Specimen Type: BLOOD SPECIMEN Ordering Facility: [facility] Address: [address] [place], [place] [address]Performed By: #### 51636-9 #### [facility] CLIA [id number] [address] [place] [address] 08162Elsqlhlts RBC (Bld) [#/Vol]10*3/uLNormal<0.01[facility] on above:Order Comment: Specimen Type: BLOOD SPECIMEN Ordering Facility: [facility] Address: [facility]Performed By: #### 47859-4 #### [facility] CLIA [id number] [address] [place] [address] 11609Drxjukvbu RBC/100 WBC (Bld) [Ratio]0.0 /100 WBCNormalCOhio State Harding [facility] on above:Order Comment: Specimen Type: BLOOD SPECIMEN Ordering Facility: [facility] Address: [address] [place], [place] [address]Performed By: #### 59229-9 #### [facility] CLIA [id number] [address] [place] [address] 74653Rpfjzrkj mean volume (Bld) [Entitic vol]10.0 fLNormal9.0-12.7 [facility] on above:Order Comment: Specimen Type: BLOOD SPECIMEN Ordering Facility: [facility] Address: [address] [place], [place] [address]Performed By: #### 17136-5 #### [facility] CLIA [id number] [address] [place] [address] 86986Gilcemvoo (Bld) [#/Vol]146 10*3/dBAkh059-038FmxbdnoltMercy Health [facility]sburg Hospital on above:Order Comment: Specimen Type: BLOOD SPECIMEN Ordering Facility: [facility] Address: [address]Performed By: #### 47628-7 #### [facility] CLIA [id number] [address] [place] [address] 21951LTQ (Bld) [#/Vol]3.70 10*6/uLLow4.20-6.00[facility] on above:Order Comment: Specimen Type: BLOOD SPECIMEN Ordering Facility: [facility] Address: [address] [place], [place] [address]Performed By: #### 06714-7 #### [facility] CLIA [id number] [address] [place], [place] [address]BIF (Bld) [#/Vol]5.68 10*3/uLNormal3.70-11.00[facility] on above:Order Comment: Specimen Type: BLOOD SPECIMEN Ordering Facility: [facility] Address: [address] [place], [place] [address]Performed By: #### 50826-5 #### [facility] CLIA [id number] [address] [place], [place] [address]Zyujjlofnlrtm metabolic 2000 panelon 09-30-9847Pugbtcx [Mass/Vol]3.4 g/dLLow3.9-4.9COhio State Harding Hospital on above:Order Comment: Specimen Type: BLOOD SPECIMENOrdering Facility: [facility] Address:[address] [place], [place] [address]Performed By: #### 24584-9 ####[facility]IA [id number] [place], [place] [address]QKO [Catalytic activity/Vol]187 U/EAabl12-396HhlirqvxvMercy Health [facility]sburg Hospital on above:Order Comment: Specimen Type: BLOOD SPECIMENOrdering Facility: [facility] Address:[address] [place], [place] [address]Performed By: #### 97951-3 ####[facility]IA [id number] [place], [place] [address]ZYU [Catalytic activity/Vol]17 U/ERnzjhv87-34KvfhrogyeMercy Health Perrysburg Hospital on above:Order Comment: Specimen Type: BLOOD SPECIMENOrdering Facility: [facility] Address:[address] [place], [place] [address]Performed By: #### 92299-8 ####[facility]IA [id number] [place], [place] [address]Eudom gap [Moles/Vol]9 mmol/LNormal9-18[facility] on above:Order Comment: Specimen Type: BLOOD SPECIMENOrdering Facility: [facility] Address:[address] [place], [place] [address]Performed By: #### 05378-7 ####[facility]IA [id number] [facility] ZEKECSARBANNER BAYWOOD MEDICAL [place]ENTERJACQUI [place] [address]WMC [Catalytic activity/Vol]20 U/UFjxvbc94-27PyccnvihfMercy Health Perrysburg Hospital on above:Order Comment: Specimen Type: BLOOD SPECIMENOrdering Facility: [facility] Address:[address] [place], [place] [address]Performed By: #### 11067-9 ####[facility]IA [id number] [facility], [place] [address]Mpqozkagf [Mass/Vol]0.5 mg/dLNormal0.2-1.3COhio State Harding Hospital on above:Order Comment: Specimen Type: BLOOD SPECIMENOrdering Facility: [facility] Address:[address] [place], [place] [address]Performed By: #### 41007-0 ####[facility] HOSPITALBRANDY [facility] LABCLIA [id number] [facility] ZEKESCARBANNER BAYWOOD MEDICAL CENTERJACQUI [place] [address]Zsrdupe [Mass/Vol]8.5 mg/dLNormal8.5-10.2COhio State Harding Hospital on above: Order Comment: Specimen Type: BLOOD SPECIMENOrdering Facility: [facility] Address:[address] [place], [place] [address]Performed By: #### 21531-6 ####[facility]CLIA [id number] [facility] ZEKE BRITTONBANNER BAYWOOD MEDICAL CENTERGALODRAGOON, [place] [address]Fejxiibw [Moles/Vol]110 mmol/NQjro50-948TxyirdgnqMercy Health [facility] on above:Order Comment: Specimen Type: BLOOD SPECIMENOrdering Facility: [facility] Address:[address] [place], [place] [address]Performed By: #### 36220-0 ####[facility]CLIA [id number] [place], [place] [address]QB4 [Moles/Vol]20 mmol/GEij97-74BvzkzslgaMercy Health Perrysburg Hospital on above:Order Comment: Specimen Type: BLOOD SPECIMENOrdering Facility: [facility] Address:[address] [place], [place] [address]Performed By: #### 55588-0 ####[facility]IA [id number] [place] [address] Creatinine [Mass/Vol]3.60 mg/dLHigh0.73-1.22[facility] on above:Order Comment: Specimen Type: BLOOD SPECIMENOrdering Facility: [facility] Address:[address] [place], [place] [address]Performed By: #### 92559-6 ####[facility]PITALIA [id number] [place], [place] [address]UUTBTFRZY GLOMERULAR FILTRATION RATE19 mL/min/1.73m???Low>=60[facility] on above:Order Comment: Specimen Type: BLOOD SPECIMENOrdering Facility: [facility] Address:[address] [place], [place] [address]Result Comment: Estimated Glomerular Filtration Rate (eGFR) is calculated using the 2020 CKD-EPI cre atinine equation. This equation utilizes serum creatinine, sex, and age as parameters. The creatinine assay has traceable calibration to isotope dilution- mass spectrometry. Refer to KDIGO guidelines for clinical interpretation. In patients with unstable renal function, e.g. those with acute kidney injury, the eGFR may not accurately reflect actual GFR.Performed By: #### 38199-4 ####[facility]IA [id number] [place], [place] [address]Cqbkymp [Mass/Vol]98 mg/iKYitmzm94-60IfvgxnaswMercy Health [facility]sburg Hospital on above:Order Comment: Specimen Type: BLOOD SPECIMENOrdering Facility: [facility] Address:[address] [place], [place] [address]Result Comment: The [place] Diabetes [employer] (ADA) provides guidance for cutoff [...] Standards of Medical Care in Diabetes 2016, [place] [employer]. Diabetes Care. 2016.39(Suppl 1).Performed By: #### 73195-4 ####[facility]CLIA [id number] [place], [place] [address]Naauvbapb [Moles/Vol]4.2 mmol/LNormal3.7-5.1COhio State Harding Hospital on above:Order Comment: Specimen Type: BLOOD SPECIMENOrdering Facility: [facility] Address:[address] [place], [place] [address]Performed By: #### 06767-1 ####[facility]CLIA [id number] [place], [place] [address]Swuvdiu [Mass/Vol]6.7 g/dLNormal6.3-8.0[facility] on above:Order Comment: Specimen Type: BLOOD SPECIMENOrdering Facility: [facility] Address:[address] [place], [place] [address]Performed By: #### 21792-2 ####[facility]CLIA [id number] [place], [place] [address]Bsmqjf [Moles/Vol]139 mmol/EDgxtau246-023KhdalqauyMercy Health [facility]sburg Hospital on above:Order Comment: Specimen Type: BLOOD SPECIMENOrdering Facility: [facility] Address:[address]Performed By: #### 17272-8 ####[facility]CLIA [id number] [place], [place] [address]Migf nitrogen [Mass/Vol]49 mg/dLHigh9-24[facility] on above:Order Comment: Specimen Type: BLOOD SPECIMENOrdering Facility: [facility] Address:[address] [place], [place] [address]Performed By: #### 06948-8 ####[facility]CLIA [id number] [place], [place] [address]NRI W Auto Differential panel (Bld)on 33-80-0846Eqdbhisuz (Bld) [#/Vol]0.03 10*3/uLNormal<0.11COhio State Harding Hospital on above: Order Comment: Specimen Type: BLOOD SPECIMENOrdering Facility: [facility] Address:[address] [place], [place] [address]Performed By: #### 60646-5 ####[facility]CLIA [id number] [place], [place] [address]Pdufqwrkd/100 WBC (Bld)0.5 %NormalMercy Health [facility]sburg Hospital on above:Order Comment: Specimen Type: BLOOD SPECIMENOrdering Facility: [facility] Address:[address] [place], [place] [address]Performed By: #### 49872-3 ####[facility]IA [id number] [place], [place] [address]Dpbicuvjhwih cell count method Nom (Bld)AutoNormalCOhio State Harding Hospital on above:Order Comment: Specimen Type: BLOOD SPECIMENOrdering Facility: [facility] Address:[address] [place], [place] [address]Performed By: #### 78564-7 ####[facility]CLIA [id number] [place], [place] [address]Bhjygdqbdoo (Bld) [#/Vol]0.22 10*3/uLNormal<0.46[facility] on above:Order Comment: Specimen Type: BLOOD SPECIMENOrdering Facility: [facility] Address:[address] [place], [place] [address]Performed By: #### 91053-9 ####[facility]IA [id number] [place] [address] Eosinophils/100 WBC (Bld)3.7 %NormalMercy Health Perrysburg Hospital on above: Order Comment: Specimen Type: BLOOD SPECIMENOrdering Facility: [facility] Address:[address] [place], [place] [address]Performed By: #### 40515-6 ####[facility]CLIA [id number] [place], [place] [address]Ikfnzjhkbdt distribution width (RBC) [Ratio]16.0 %High 11.5-15.0[facility] on above:Order Comment: Specimen Type: BLOOD SPECIMENOrdering Facility: [facility] Address:[address] [place], [place] [address]Performed By: #### 46018-0 ####[facility]IA [id number] [place] [address] Hematocrit (Bld) [Volume fraction]29.0 %Low39.0-51.0[facility] Comment on above:Order Comment: Specimen Type: BLOOD SPECIMENOrdering Facility: [facility] Address:[address] [place] [address] Performed By: #### 29239-8 ####[facility]IA [id number] [place], [place] [address]Afeggmvfan (Bld) [Mass/Vol]9.5 g/dLLow13.0-17.0[facility] on above:Order Comment: Specimen Type: BLOOD SPECIMENOrdering Facility: [facility] Address:[address] [place], [place] [address]Performed By: #### 00951-6 ####[facility]CLIA [id number] [place], [place] [address]GNRIVBRH GRAN %0.3 %NormalKettering Health Greene Memorial Comment on above:Order Comment: Specimen Type: BLOOD SPECIMENOrdering Facility: [facility] Address:[address] [place] [address] Performed By: #### 23295-4 ####[facility]CLIA [id number] [place], [place] [address]UPJIVROF GRAN ABS<0.03Normal <0.10[facility] on above:Order Comment: Specimen Type: BLOOD SPECIMENOrdering Facility: [facility] Address:[address] [place], [place] [address]Performed By: #### 96518-5 ####[facility]IA [id number] [place] [address] Lymphocytes (Bld) [#/Vol]0.81 10*3/uLLow1.00-4.00[facility] Comment on above:Order Comment: Specimen Type: BLOOD SPECIMENOrdering Facility: [facility] Address:[address] [place] [address] Performed By: #### 72999-1 ####[facility]IA [id number] [place], [place] [address]Scucefdheqq/100 WBC (Bld)13.7 % NormalMercy Health Perrysburg Hospital on above:Order Comment: Specimen Type: BLOOD SPECIMENOrdering Facility: [facility] Address:[address] [place], [place] [address]Performed By: #### 65628-6 ####[facility]IA [id number] [place], [place] [address]ENS (RBC) [Entitic mass]27.8 vuQnviso32.0-34.0[facility] on above:Order Comment: Specimen Type: BLOOD SPECIMENOrdering Facility: [facility] Address:[address] [place], [place] [address]Performed By: #### 19888-9 ####[facility]IA [id number] [place], [place] [address]EQOA (RBC) [Mass/Vol]32.8 g/aMCsbvgv36.5-36.0 [facility] on above:Order Comment: Specimen Type: BLOOD SPECIMENOrdering Facility: [facility] Address:[address] [place], [place] [address]Performed By: #### 93868-0 ####[facility]PITALIA [id number] [place], [place] [address]WCS (RBC) [Entitic vol]84.8 qIGkriye85.0-100.0[facility] on above: Order Comment: Specimen Type: BLOOD SPECIMENOrdering Facility: [facility] Address:[address] [place], [place] [address]Performed By: #### 77885-0 ####[facility]IA [id number] [place], [place] [address]Itlulmlih (Bld) [#/Vol]0.85 10*3/uLNormal<0.87[facility] on above:Order Comment: Specimen Type: BLOOD SPECIMENOrdering Facility: [facility] Address:[address] [place], [place] [address]Performed By: #### 04721-5 ####[facility]IA [id number] [place] [address] Monocytes/100 WBC (Bld)14.4 %NormalMercy Health Perrysburg Hospital on above: Order Comment: Specimen Type: BLOOD SPECIMENOrdering Facility: [facility] Address:[address] [place], [place] [address]Performed By: #### 88735-4 ####[facility] LABCLIA [id number] [place], [place] [address]Ygmrgneyhck (Bld) [#/Vol]3.97 10*3/uLNormal1.45-7.50 [facility] on above:Order Comment: Specimen Type: BLOOD SPECIMENOrdering Facility: [facility] Address:[address] [place], [place] [address]Performed By: #### 63125-8 ####[facility]CLIA [id number] [place] [address] Neutrophils/100 WBC (Bld)67.4 %NormalMercy Health Perrysburg Hospital on above: Order Comment: Specimen Type: BLOOD SPECIMENOrdering Facility: [facility] Address:[address] [place], [place] [address]Performed By: #### 14729-7 ####[facility]IA [id number] [place], [place] [address]Wsyssvfam RBC (Bld) [#/Vol]10*3/uLNormal<0.01[facility] on above:Order Comment: Specimen Type: BLOOD SPECIMENOrdering Facility: [facility] Address:[address] [place], [place] [address]Performed By: #### 47369-8 ####[facility]IA [id number] [place], [place] [address]Epyzcgbsu RBC/100 WBC (Bld) [Ratio]0.0 /100 WBCNormalCOhio State [facility]ing Hospital on above:Order Comment: Specimen Type: BLOOD SPECIMENOrdering Facility: [facility] Address:[address] [place], [place] [address]Performed By: #### 52211-2 ####[facility]IA [id number] [place], [place] [address]Ybmzaglf mean volume (Bld) [Entitic vol]10.1 fL Normal9.0-12.7COhio State [facility]ing Hospital on above:Order Comment: Specimen Type: BLOOD SPECIMENOrdering Facility: [facility] Address:[address] [place], [place] [address]Performed By: #### 14661-5 ####[facility]CLIA [id number] [place] [address] Platelets (Bld) [#/Vol]138 10*3/nTZjs277-063HwvpuiipyMercy Health [facility] Hospital on above:Order Comment: Specimen Type: BLOOD SPECIMENOrdering Facility: [facility] Address:[address] [place], [place] [address]Performed By: #### 12847-5 ####[facility]IA [id number] [place], [place] [address]LCM (Bld) [#/Vol]3.42 10*6/uLLow4.20-6.00[facility] on above:Order Comment: Specimen Type: BLOOD SPECIMENOrdering Facility: [facility] Address:[address] [place], [place] [address]Performed By: #### 21717-0 ####[facility]ITALIA [id number] [place], [place] [address]TWV (Bld) [#/Vol]5.90 10*3/uLNormal3.70-11.00[facility] on above: Order Comment: Specimen Type: BLOOD SPECIMENOrdering Facility: [facility] Address:[address] [place], [place] [address]Performed By: #### 43947-5 ####[facility]IA [id number] [place], [place] [address]Dpjlgsuvfozgg metabolic 2000 panelon 49-53-7846Yfxhhwp [Mass/Vol]3.3 g/dLLow3.9-4.9COhio State [facility]ing [facility] on above:Order Comment: Specimen Type: BLOOD SPECIMENOrdering Facility: [facility] Address:[address] [place], [place] [address]Performed By: #### 74917-4 ####[facility] LABCLIA [id number] [place] [address]SBH [Catalytic activity/Vol]196 U/XWaam64-453QkrdvuwcjMercy Health [facility] on above:Order Comment: Specimen Type: BLOOD SPECIMENOrdering Facility: [facility] Address:[address] [place], [place] [address]Performed By: #### 96881-0 ####[facility]CLIA [id number] [place], [place] [address]HXD [Catalytic activity/Vol]19 U/GNywypt33-12EcutaqzssMercy Health [facility] Hospital on above:Order Comment: Specimen Type: BLOOD SPECIMENOrdering Facility: [facility] Address:[address] [place], [place] [address]Performed By: #### 30876-8 ####[facility]CLIA [id number] [place]LIS ALANISSCARWE[place], [place] [address]Xnhdf gap [Moles/Vol]9 mmol/LNormal9-18[facility] on above:Order Comment: Specimen Type: BLOOD SPECIMENOrdering Facility: [facility] Address:[address] [place], [place] [address]Performed By: #### 94605-1 ####[facility]CLIA [id number] ARELIS ANNEBANNER BAYWOOD MEDICAL CENTERJACQUIMI [place], [place] [address]ZFY [Catalytic activity/Vol]24 U/DGftijn11-51RhvklbknxMer[facility] Health [facility] on above:Order Comment: Specimen Type: BLOOD SPECIMENOrdering Facility: [facility] Address:[address] [place], [place] [address]Performed By: #### 42838-1 ####[facility]CLIA [id number] BECKIERY ZEKESCARBANNER BAYWOOD MEDICAL CENTERJACQUIMI [place], [place] [address]Elzaawnll [Mass/Vol]0.5 mg/dLNormal0.2-1.3COhio State [facility]ing Hospital on above:Order Comment: Specimen Type: BLOOD SPECIMENOrdering Facility: [facility] Address:[address] [place], [place] [address]Performed By: #### 93752-3 ####[facility]' HOSPITALBRANDY [facility] LABCLIA [id number] [place], [place] [address]Xzdapiz [Mass/Vol]8.7 mg/dLNormal8.5-10.2COhio State [facility]ing Hospital on above: Order Comment: Specimen Type: BLOOD SPECIMENOrdering Facility: [facility] Address:[address] [place], [place] [address]Performed By: #### 64232-3 ####[facility]CLIA [id number] [place], [place] [address]Mmjphuji [Moles/Vol]111 mmol/FJazh74-564GcgkmgpqjMercy Health [facility] Hospital on above:Order Comment: Specimen Type: BLOOD SPECIMENOrdering Facility: [facility] Address:[address] [place], [place] [address]Performed By: #### 90569-5 ####[facility]CLIA [id number] [place], [place] [address]QA6 [Moles/Vol]19 mmol/KRwt79-85ShpkdxvegMercy Health Perrysburg Hospital on above:Order Comment: Specimen Type: BLOOD SPECIMENOrdering Facility: [facility] Address:[address] [place], [place] [address]Performed By: #### 45714-6 ####[facility]CLIA [id number] [place] [address] Creatinine [Mass/Vol]3.53 mg/dLHigh0.73-1.22[facility] on above:Order Comment: Specimen Type: BLOOD SPECIMENOrdering Facility: [facility] Address:[address] [place], [place] [address]Performed By: #### 00061-5 ####[facility]CLIA [id number] [place], [place] [address]RMSZWOUCX GLOMERULAR FILTRATION RATE19 mL/min/1.73m???Low>=60[facility] on above:Order Comment: Specimen Type: BLOOD SPECIMENOrdering Facility: [facility] Address:[address] [place] [address]Result Comment: Estimated Glomerular Filtration Rate (eGFR) is calculated using the 2020 CKD-EPI cre atinine equation. This equation utilizes serum creatinine, sex, and age as parameters. The creatinine assay has traceable calibration to isotope dilution- mass spectrometry. Refer to KDIGO guidelines for clinical interpretation. In patients with unstable renal function, e.g. those with acute kidney injury, the eGFR may not accurately reflect actual GFR.Performed By: #### 20801-7 ####[facility] LABCLIA [id number] [place], [place] [address]Bykkqqd [Mass/Vol]126 mg/aQDbmw38-79ChwekhawzMercy Health [facility]sburg Hospital on above:Order Comment: Specimen Type: BLOOD SPECIMENOrdering Facility: [facility] Address:[address] [place] [address]Result Comment: The [place] [employer] (ADA) provides guidance for cutoff [...] Standards of Medical Care in Diabetes 2016, [place] [employer]. Diabetes Care. 2016.39(Suppl 1).Performed By: #### 15182-4 ####[facility]CL[facility] [id number] [place], [place] [address]Ecnauaima [Moles/Vol]4.2 mmol/LNormal3.7-5.1COhio State [facility]ing [facility] on above:Order Comment: Specimen Type: BLOOD SPECIMENOrdering Facility: [facility] Address:[address] [place], [place] [address]Performed By: #### 88990-7 ####[facility]CL[facility] [id number] [place], [place] [address]Jqiatdz [Mass/Vol]6.7 g/dLNormal6.3-8.0[facility] on above:Order Comment: Specimen Type: BLOOD SPECIMENOrdering Facility: [facility] Address:[address] [place], [place] [address]Performed By: #### 76310-7 ####[facility] [id number] [place], [place] [address]Ougwzb [Moles/Vol]139 mmol/HHdskix362-253VpqlukawhMercy Health Perrysburg Hospital on above:Order Comment: Specimen Type: BLOOD SPECIMENOrdering Facility: [facility] Address:[address] [place], [place] [address]Performed By: #### 29078-0 ####[facility] LABIA [id number] [place], [place] [address]Nuuv nitrogen [Mass/Vol]47 mg/dLHigh9-24[facility] on above:Order Comment: Specimen Type: BLOOD SPECIMENOrdering Facility: [facility] Address:[address] [place], [place] [address]Performed By: #### 97333-4 ####[facility] LABIA [id number] [place], [place] [address]HQO W Auto Differential panel (Bld)on [id number] (Bld) [#/Vol]0.04 10*3/uLNormal<0.11COhio State [facility]ing [facility] on above: Order Comment: Specimen Type: BLOOD SPECIMENOrdering Facility: [facility] Address:[address] [place], [place] [id number] By: #### 18005-1 ####[facility]CL[facility] [id number] [place], [place] [address]Euugwhfpd/100 WBC (Bld)0.7 %NormalMercy Health [facility] Hospital on above:Order Comment: Specimen Type: BLOOD SPECIMENOrdering Facility: [facility] Address:[address] [place], [place] [address]Performed By: #### 00117-4 ####[facility]CL[facility] [id number] [place], [place] [address]Tqsyrivglrmh cell count method Nom (Bld)AutoNormalCOhio State Harding Hospital on above:Order Comment: Specimen Type: BLOOD SPECIMENOrdering Facility: [facility] Address:[address] [place], [place] [address]Performed By: #### 81088-8 ####[facility] [id number] [place], [place] [address]Vwiaqzxmjqk (Bld) [#/Vol]0.23 10*3/uLNormal<0.46[facility] on above:Order Comment: Specimen Type: BLOOD SPECIMENOrdering Facility: [facility] Address:[address] [place], [place] [address]Performed By: #### 02749-8 ####[facility] LABCLIA [id number] [place] [address] Eosinophils/100 WBC (Bld)4.1 %NormalMercy Health Perrysburg Hospital on above: Order Comment: Specimen Type: BLOOD SPECIMENOrdering Facility: [facility] Address:[address] [place], [place] [address]Performed By: #### 07138-0 ####[facility]CL[facility] [id number] [place], [place] [address]Pxrrvlqwdck distribution width (RBC) [Ratio]14.4 %Normal 11.5-15.0[facility] on above:Order Comment: Specimen Type: BLOOD SPECIMENOrdering Facility: [facility] Address:[address] [place], [place] [address]Performed By: #### 16359-9 ####[facility] [id number] [place] [address] Hematocrit (Bld) [Volume fraction]25.6 %Low39.0-51.0[facility] Comment on above:Order Comment: Specimen Type: BLOOD SPECIMENOrdering Facility: [facility] Address:[address] [place] [address] Performed By: #### 88951-9 ####[facility] [id number] [place], [place] [address]Ajgkozupsn (Bld) [Mass/Vol]8.4 g/dLLow13.0-17.0[facility] on above:Order Comment: Specimen Type: BLOOD SPECIMENOrdering Facility: [facility] Address:[address] [place], [place] [address]Performed By: #### 17767-9 ####[facility] [id number] [place], [place] [address]FORRTDNP GRAN %0.2 %NormalKettering Health Greene Memorial Comment on above:Order Comment: Specimen Type: BLOOD SPECIMENOrdering Facility: [facility] Address:[address] [place] [address] Performed By: #### 17207-5 ####[facility] [id number] [place], [place] [address]YELVXBWT GRAN ABS<0.03Normal <0.10[facility] on above:Order Comment: Specimen Type: BLOOD SPECIMENOrdering Facility: [facility] Address:[address] [place], [place] [address]Performed By: #### 32314-2 ####[facility] LABCLIA [id number] [place] [address] Lymphocytes (Bld) [#/Vol]0.69 10*3/uLLow1.00-4.00[facility] Comment on above:Order Comment: Specimen Type: BLOOD SPECIMENOrdering Facility: [facility] Address:[address] [place] [address] Performed By: #### 07136-6 ####[facility] [id number] [place], [place] [address]Xcoujgqmksq/100 WBC (Bld)12.3 % NormalMercy Health Perrysburg Hospital on above:Order Comment: Specimen Type: BLOOD SPECIMENOrdering Facility: [facility] Address:[address] [place], [place] [address]Performed By: #### 80762-8 ####[facility] [id number] [place], [place] [address]ENJ (RBC) [Entitic mass]27.5 wuXvwwfi35.0-34.0[facility] MemorialComment on above:Order Comment: Specimen Type: BLOOD SPECIMENOrdering Facility: [facility] Address:[address] [place], [place] [address]Performed By: #### 53427-8 ####[facility] [id number] [place], [place] [address]CPPW (RBC) [Mass/Vol]32.8 g/kDYwwdfa42.5-36.0 [facility] on above:Order Comment: Specimen Type: BLOOD SPECIMENOrdering Facility: [facility] Address:[address] [place], [place] [address]Performed By: #### 61459-1 ####[facility] [id number] [place], [place] [address]UKO (RBC) [Entitic vol]83.7 wXEpsxbh09.0-100.0[facility] on above: Order Comment: Specimen Type: BLOOD SPECIMENOrdering Facility: [facility] Address:[address] [place], [place] [address]Performed By: #### 63834-8 ####[facility] [id number] [place], [place] [address]Jmvincghk (Bld) [#/Vol]0.71 10*3/uLNormal<0.87[facility] on above:Order Comment: Specimen Type: BLOOD SPECIMENOrdering Facility: [facility] Address:[address] [place], [place] [address]Performed By: #### 95108-7 ####[facility] [id number] [place] [address] Monocytes/100 WBC (Bld)12.7 %NormalMercy Health Perrysburg Hospital on above: Order Comment: Specimen Type: BLOOD SPECIMENOrdering Facility: [facility] Address:[address] [place], [place] [address]Performed By: #### 66465-1 ####[facility] [id number] [place], [place] [address]Jxpprgtetry (Bld) [#/Vol]3.92 10*3/uLNormal1.45-7.50 [facility] on above:Order Comment: Specimen Type: BLOOD SPECIMENOrdering Facility: [facility] Address:[address] [place], [place] [address]Performed By: #### 50696-5 ####[facility] [id number] [place] [address] Neutrophils/100 WBC (Bld)70.0 %NormalMercy Health [facility]sburg Hospital on above: Order Comment: Specimen Type: BLOOD SPECIMENOrdering Facility: [facility] Address:[address] [place], [place] [address]Performed By: #### 80398-8 ####[facility] [id number] [place], [place] [address]Tnnnsttxb RBC (Bld) [#/Vol]10*3/uLNormal<0.01[facility] on above:Order Comment: Specimen Type: BLOOD SPECIMENOrdering Facility: [facility] Address:[address] [place], [place] [address]Performed By: #### 17512-8 ####[facility] [id number] [place], [place] [address]Vnnlclobe RBC/100 WBC (Bld) [Ratio]0.0 /100 WBCNormalCOhio State Harding Hospital on above:Order Comment: Specimen Type: BLOOD SPECIMENOrdering Facility: [facility] Address:[address] [place], [place] [address]Performed By: #### 47971-6 ####[facility] [id number] [place], [place] [address]Kavavqem mean volume (Bld) [Entitic vol]10.2 fL Normal9.0-12.7COhio State Harding Hospital on above:Order Comment: Specimen Type: BLOOD SPECIMENOrdering Facility: [facility] Address:[address] [place], [place] [address]Performed By: #### 72518-8 ####[facility] [id number] [place] [address] Platelets (Bld) [#/Vol]160 10*3/uRJjmnxf136-892AgstboyvfMercy Health [facility] on above:Order Comment: Specimen Type: BLOOD SPECIMENOrdering Facility: [facility] Address:[address] [place] [address] Performed By: #### 55748-4 ####[facility] [id number] [place], [place] [address]SXC (Bld) [#/Vol]3.06 10*6/uL Low4.20-6.00[facility] on above:Order Comment: Specimen Type: BLOOD SPECIMENOrdering Facility: [facility] Address:[address] [place], [place] [address]Performed By: #### 59103-7 ####[facility] [id number] [place] [address] WBC (Bld) [#/Vol]5.60 10*3/uLNormal3.70-11.00[facility] on above:Order Comment: Specimen Type: BLOOD SPECIMENOrdering Facility: [facility] Address:[address] [place] [address] Performed By: #### 79426-6 ####[facility] [id number] [place], [place] [address]Hlcscrexuwkid metabolic 2000 panelon 38-22-5146Xvxipud [Mass/Vol]3.4 g/dLLow3.9-4.9CLake [facility] Comment on above:Order Comment: Specimen Type: BLOOD SPECIMENOrdering Facility: [facility] Address:[address] [place] [address] Performed By: #### 44326-4 ####[facility] [id number] [place], [place] [address]RGR [Catalytic activity/Vol]197 U/WMvyk65-027VflfzbqgxMer[facility] Health [facility] on above:Order Comment: Specimen Type: BLOOD SPECIMENOrdering Facility: [facility] Address:[address] [place], [place] [address]Performed By: #### 23888-7 ####[facility] [id number] [place] [address] ALT [Catalytic activity/Vol]19 U/QGuqdlh53-53QookwgxkzMercy Health [facility] on above:Order Comment: Specimen Type: BLOOD SPECIMENOrdering Facility: [facility] Address:[address] [place] [address] Performed By: #### 72646-7 ####[facility]CL[facility] [id number] [place], [place] [address]Pufgn gap [Moles/Vol]9 mmol/L Normal9-18[facility] on above:Order Comment: Specimen Type: BLOOD SPECIMENOrdering Facility: [facility] Address:[address] [place], [place] [address]Performed By: #### 63653-9 ####[facility] [id number] [place] [address] AST [Catalytic activity/Vol]21 U/OLrrudp60-06BwczrghlcMercy Health [facility] on above:Order Comment: Specimen Type: BLOOD SPECIMENOrdering Facility: [facility] Address:[address] [place] [address] Performed By: #### 70571-6 ####[facility] [id number] [place], [place] [address]Ceexxmgkd [Mass/Vol]0.3 mg/dL Normal0.2-1.3COhio State [facility]ing Hospital on above:Order Comment: Specimen Type: BLOOD SPECIMENOrdering Facility: [facility] Address:[address] [place], [place] [address]Performed By: #### 78767-3 ####[facility] [id number] [place] [address] Calcium [Mass/Vol]8.7 mg/dLNormal8.5-10.2COhio State Harding Hospital on above:Order Comment: Specimen Type: BLOOD SPECIMENOrdering Facility: [facility] Address:[address] [place], [place] [address]Performed By: #### 85408-0 ####[facility] [id number] [place], [place] [address]Hgrlwyga [Moles/Vol]110 mmol/OMsuv26-910KgfwntqsqMercy Health [facility] on above:Order Comment: Specimen Type: BLOOD SPECIMENOrdering Facility: [facility] Address:[address] [place], [place] [address]Performed By: #### 25773-3 ####[facility] [id number] [place], [place] [address]OO4 [Moles/Vol]21 mmol/ZUoi62-96MajcltfavLakeHealth Beachwood Medical Centerment on above:Order Comment: Specimen Type: BLOOD SPECIMENOrdering Facility: [facility] Address:[address] [place], [place] [address]Performed By: #### 57934-2 ####[facility] [id number] [place], [place] [address]Uvfmefcbfj [Mass/Vol]4.04 mg/dLHigh0.73-1.22[facility] on above:Order Comment: Specimen Type: BLOOD SPECIMENOrdering Facility: [facility] Address:[address] [place], [place] [address]Performed By: #### 53473-7 ####[facility] [id number] [place], [place] [address]JZQNCTORI GLOMERULAR FILTRATION RATE16 mL/min/1.73m???Low>=60[facility] Comment on above:Order Comment: Specimen Type: BLOOD SPECIMENOrdering Facility: [facility] Address:[address] [place] [address] Result Comment: Estimated Glomerular Filtration Rate (eGFR) is calculated using the 2020 CKD-EPI creatinine equation. This equation utilizes serum creatinine, sex, and age as parameters. The creatinine assay has traceable calibration to isotope dilution-mass spectrometry. Refer to KDIGO guidelines for clinical interpretation. In patients with unstable renal function, e.g. those with acute kidney injury, the eGFR may not accurately reflect actual GFR.Performed By: #### 49866-8 ####[facility] [id number] [place], [place] [address]Qtcscsf [Mass/Vol]104 mg/vFNsos45-94VitsqdyyrMer[facility] Health [facility] on above:Order Comment: Specimen Type: BLOOD SPECIMENOrdering Facility: [facility] Address:[address] [place], [place] [address]Result Comment: The [place] [employer] (ADA) provides guidance for cutoff [...] Standards of Medical Care in Diabetes 2016, [place] [employer]. Diabetes Care. 2016.39(Suppl 1).Performed By: #### 59332-7 ####[facility] [id number] [place], [place] [address]Qcdnjuwfv [Moles/Vol]4.5 mmol/LNormal3.7-5.1COhio State [facility]ing Hospital on above:Order Comment: Specimen Type: BLOOD SPECIMENOrdering Facility: [facility] Address:[address] [place], [place] [address]Performed By: #### 52215-3 ####[facility] [id number] [place], [place] [address]Othgfcc [Mass/Vol]6.8 g/dLNormal6.3-8.0[facility] on above:Order Comment: Specimen Type: BLOOD SPECIMENOrdering Facility: [facility] Address:[address] [place], [place] [address]Performed By: #### 13814-0 ####[facility] [id number] [place], [place] [address]Vshtkd [Moles/Vol]140 mmol/UQcpyzx911-815JjcypevcnMercy Health [facility]sburg Hospital on above:Order Comment: Specimen Type: BLOOD SPECIMENOrdering Facility: [facility] Address:[address] [id number] By: #### 77345-6 ####[facility]CL[facility] [id number] [place], [place] [address]Wipm nitrogen [Mass/Vol]58 mg/dLHigh9-24[facility] MemorialComsturgis hospital on above:Order Comment: Specimen Type: BLOOD SPECIMENOrdering Facility: [facility] Address:[address] [place], [place] [address]Performed By: #### 02049-7 ####[facility] LABCL[facility] [id number] [place], [place] [address] MICROGLOBULIN Bon 54-21-7743Pqdj-2-Microglobulin [Mass/Vol]16.8 ug/mLHigh0.8 - 2.4 mg/LCleveland ClinicCalcium.ionized [Moles/Vol]on 32-25-4475Spgmufw.ionized (Bld) [Mass/Vol]1.20 mmol/L1.08 - 1.30 mmol/LCleveland ClinicCalcium.ionized adjusted to pH 7.4 (Bld) [Moles/Vol]1.19 mmol/L1.08 - 1.30 mmol/LCleveland ClinicERYTHROPOIETIN/EPOon 10-03-2021 Erythropoietin (EPO) Qn8.2 mIU/mL2.6 - 18.5 mIU/mLCleveland ClinicFERRITIN BLDon 36-43-1391Wpnauqyo [Mass/Vol]355.0 ng/mL30.3 - 565.7 ng/mLCleveland Clinic FOLATE SERUMon 74-63-5381Lxdvax [Mass/Vol]10.6 ng/mL>4.7 ng/mLCleveland Clinic VITAMIN B12 BLOODon 29-43-1808Ximfqflfr (Vitamin B12) [Mass/Vol]647 pg/mL232- 1,245 pg/mLCleveland ClinicB2 Microglob SerPl-mCncon 10-02-2021 Ovwa-7-Kvdlcingoftdx [Mass/Vol]16.8 ug/mLHigh0.8-2.4[facility] Comment on above:Order Comment: Specimen Type: BLOOD SPECIMEN [facility] Address: [address] [place], [place] [address]Performed By: #### 66493-3 #### [facility] CLIA [id number] [place], [place] [address]ULA W Auto Differential panel (Bld)on 16-85-6561Zrrurhwnd (Bld) [#/Vol]10*3/uLNormal<0.11COhio State [facility]ing [facility] on above:Order Comment: Specimen Type: BLOOD SPECIMENOrdering Facility: [facility] Address:[address] [place], [place] [address]Performed By: #### 94130-4 ####[facility] LABCLIA [id number] [place], [place] [address]Obmxsqxaw/100 WBC (Bld)0.3 %NormalMercy Health Perrysburg Hospital on above:Order Comment: Specimen Type: BLOOD SPECIMENOrdering Facility: [facility] Address:[address] [place], [place] [address]Performed By: #### 32423-1 ####[facility]CL[facility] [id number] [place], [place] [address]Ehagwkbcfwfd cell count method Nom (Bld)AutoNormalCLake County Memorial Hospital - WestComsturgis hospital on above:Order Comment: Specimen Type: BLOOD SPECIMENOrdering Facility: [facility] Address:[address] [place], [place] [address]Performed By: #### 08479-5 ####[facility] [id number] [place], [place] [address]Gyywybwvsiy (Bld) [#/Vol]0.23 10*3/uLNormal<0.46[facility] on above:Order Comment: Specimen Type: BLOOD SPECIMENOrdering Facility: [facility] Address:[address] [place], [place] [address]Performed By: #### 18145-5 ####[facility] [id number] [place] [address] Eosinophils/100 WBC (Bld)3.7 %NormalMercy Health Perrysburg Hospital on above: Order Comment: Specimen Type: BLOOD SPECIMENOrdering Facility: [facility] Address:[address] [place], [place] [address]Performed By: #### 99203-3 ####[facility] [id number] [place], [place] [address]Kiwzjnlxixx distribution width (RBC) [Ratio]14.7 %Normal 11.5-15.0[facility] on above:Order Comment: Specimen Type: BLOOD SPECIMENOrdering Facility: [facility] Address:[address] [place], [place] [address]Performed By: #### 66230-3 ####[facility] [id number] [place] [address] Hematocrit (Bld) [Volume fraction]27.1 %Low39.0-51.0[facility] Comment on above:Order Comment: Specimen Type: BLOOD SPECIMENOrdering Facility: [facility] Address:[address] [place] [address] Performed By: #### 50212-0 ####[facility] [id number] [place], [place] [address]Nugmfsukrg (Bld) [Mass/Vol]8.8 g/dLLow13.0-17.0[facility] on above:Order Comment: Specimen Type: BLOOD SPECIMENOrdering Facility: [facility] Address:[address] [place], [place] [address]Performed By: #### 92685-3 ####[facility] [id number] [place], [place] [address]IHBRHXUP GRAN %0.2 %NormalKettering Health Greene Memorial Comment on above:Order Comment: Specimen Type: BLOOD SPECIMENOrdering Facility: [facility] Address:[address] [place] [address] Performed By: #### 98021-9 ####[facility]CL[facility] [id number] [place], [place] [address]BCJQWIGW GRAN ABS<0.03Normal <0.10[facility] on above:Order Comment: Specimen Type: BLOOD SPECIMENOrdering Facility: [facility] Address:[address] [place], [place] [address]Performed By: #### 90139-9 ####[facility] [id number] [place] [address] Lymphocytes (Bld) [#/Vol]0.73 10*3/uLLow1.00-4.00[facility] Comment on above:Order Comment: Specimen Type: BLOOD SPECIMENOrdering Facility: [facility] Address:[address] [place] [address] Performed By: #### 40819-6 ####[facility] [id number] [place], [place] [address]Cdpkzbdbjbx/100 WBC (Bld)11.8 % NormalMercy Health Perrysburg Hospital on above:Order Comment: Specimen Type: BLOOD SPECIMENOrdering Facility: [facility] Address:[address] [place], [place] [address]Performed By: #### 69644-6 ####[facility]CL[facility] [id number] [place], [place] [address]UGZ (RBC) [Entitic mass]27.2 hmDwnfez71.0-34.0[facility] on above:Order Comment: Specimen Type: BLOOD SPECIMENOrdering Facility: [facility] Address:[address] [place], [place] [address]Performed By: #### 70070-2 ####[facility] [id number] [place], [place] [address]IWMF (RBC) [Mass/Vol]32.5 g/lUNparde25.5-36.0 [facility] on above:Order Comment: Specimen Type: BLOOD SPECIMENOrdering Facility: [facility] Address:[address] [place], [place] [address]Performed By: #### 94494-3 ####[facility]ITALIA [id number] [place], [place] [address]JTJ (RBC) [Entitic vol]83.6 nUXbyygm33.0-100.0[facility] on above: Order Comment: Specimen Type: BLOOD SPECIMENOrdering Facility: [facility] Address:[address] [place], [place] [address]Performed By: #### 70012-0 ####[facility] [id number] [place], [place] [address]Bvvzrfaya (Bld) [#/Vol]0.67 10*3/uLNormal<0.87[facility] on above:Order Comment: Specimen Type: BLOOD SPECIMENOrdering Facility: [facility] Address:[address] [place], [place] [address]Performed By: #### 96140-5 ####[facility]ITAL[facility] [id number] [place] [address] Monocytes/100 WBC (Bld)10.8 %NormalMercy Health Perrysburg Hospital on above: Order Comment: Specimen Type: BLOOD SPECIMENOrdering Facility: [facility] Address:[address] [place], [place] [address]Performed By: #### 72863-4 ####[facility] [id number] [place], [place] [address]Mgrhimdksif (Bld) [#/Vol]4.54 10*3/uLNormal1.45-7.50 [facility] on above:Order Comment: Specimen Type: BLOOD SPECIMENOrdering Facility: [facility] Address:[address] [place], [place] [address]Performed By: #### 07859-9 ####[facility] [id number] [place] [address] Neutrophils/100 WBC (Bld)73.2 %NormalMercy Health Perrysburg Hospital on above: Order Comment: Specimen Type: BLOOD SPECIMENOrdering Facility: [facility] Address:[address] [place], [place] [address]Performed By: #### 52262-1 ####[facility] [id number] [place], [place] [address]Cfilnefix RBC (Bld) [#/Vol]10*3/uLNormal<0.01[facility] on above:Order Comment: Specimen Type: BLOOD SPECIMENOrdering Facility: [facility] Address:[address] [place], [place] [address]Performed By: #### 61311-1 ####[facility]ITALBRANDY [facility] LABIA [id number] [place], [place] [address]Sybhfmino RBC/100 WBC (Bld) [Ratio]0.0 /100 WBCNormalCOhio State Harding Hospital on above:Order Comment: Specimen Type: BLOOD SPECIMENOrdering Facility: [facility] Address:[address] [place], [place] [address]Performed By: #### 02813-7 ####[facility] [id number] [place], [place] [address]Pigaybdh mean volume (Bld) [Entitic vol]10.2 fL Normal9.0-12.7COhio State Harding Hospital on above:Order Comment: Specimen Type: BLOOD SPECIMENOrdering Facility: [facility] Address:[address] [place], [place] [address]Performed By: #### [id number] ####[facility] LABCLIA [id number] [place] [address] Platelets (Bld) [#/Vol]163 10*3/uMMsjcfs500-065VpfqdgfqcMer[facility] on above:Order Comment: Specimen Type: BLOOD SPECIMENOrdering Facility: [facility] Address:[address] [place] [address] Performed By: #### [id number] ####[facility] LABCLIA [id number] [place], [place] [address]EAK (Bld) [#/Vol]3.24 10*6/uL Low4.20-6.00[facility] on above:Order Comment: Specimen Type: BLOOD SPECIMENOrdering Facility: [facility] Address:[address] [place], [place] [address]Performed By: #### [id number] ####[facility]ITAL[facility] [id number] [place] [address] WBC (Bld) [#/Vol]6.20 10*3/uLNormal3.70-11.00[facility] on above:Order Comment: Specimen Type: BLOOD SPECIMENOrdering Facility: [facility] Address:[address] [place] [address] Performed By: #### [id number] ####[facility]IA [id number] [place], [place] [address]Cfw Immature Gran<0.03<0.10 k/uLCleveland Clinic Children'S Hospital For RehabilitationBasophils (Bld) [#/Vol]10*3/uL<0.11 k/uLCleveland Clinic [facility] Basophils/100 WBC (Bld)0.3 %[facility] RehabilitationDifferential cell count method Nom (Bld)AutoCleveland ClinicEosinophils (Bld) [#/Vol]0.23 10*3/uL<0.46 k/uL [facility] RehabilitationEosinophils/100 WBC (Bld)3.7 %[facility] For RehabilitationErythrocyte distribution width (RBC) [Ratio]14.7 %11.5 - 15.0 %[facility] For RehabilitationHematocrit (Bld) [Volume fraction]27.1 %Low39.0 - 51.0 %[facility] RehabilitationHemoglobin (Bld) [Mass/Vol]8.8 g/dLLow13.0 - 17.0 g/dLCleveland Clinic Children'S Hospital For RehabilitationImmature Gran %0.2 % [facility] For RehabilitationLymphocytes (Bld) [#/Vol]0.73 10*3/uLLow1.00 - 4.00 k/uL [facility] RehabilitationLymphocytes/100 WBC (Bld)11.8 %[facility] WestH (RBC) [Entitic mass]27.2 pg26.0 - 34.0 pgClevelSleepy Eye Medical CenterHC (RBC) [Mass/Vol]32.5 g/dL30.5 - 36.0 g/dLLake County Memorial Hospital - WestV (RBC) [Entitic vol]83.6 fL80.0 - 100.0 fLCleveland ClinicMonocytes (Bld) [#/Vol]0.67 10*3/uL<0.87 k/uLCleveland Clinic [facility] Monocytes/100 WBC (Bld)10.8 %[facility] RehabilitationNeutrophils (Bld) [#/Vol]4.54 10*3/uL1.45 - 7.50 k/uLCleveland Clinic Children'S [facility] RehabilitationNeutrophils/100 WBC (Bld)73.2 %[facility] For RehabilitationNucleated RBC (Bld) [#/Vol]10*3/uL<0.01 k/uLCleveland Clinic Children'S Hospital For RehabilitationNucleated RBC/100 WBC (Bld) [Ratio]0.0 /100 WBCCleveland Clinic Children'S Hospital For RehabilitationPlatelet mean volume (Bld) [Entitic vol]10.2 fL9.0 - 12.7 fLCleveland ClinicPlatelets (Bld) [#/Vol]163 10*3/uL150 - 400 k/uLCleveland Clinic Children'S Hospital For RehabilitationRBC (Bld) [#/Vol]3.24 10*6/uLLow4.20 - 6.00 m/uLCleveland Clinic Children'S Hospital For RehabilitationWBC (Bld) [#/Vol]6.20 10*3/uL3.70 - 11.00 k/uLCleveland Clinic Children'S Hospital For RehabilitationCNOVSPon 29-68-5617EMHIPGXkohk (SP) Office (HEMASA) GOPAL YATES JR ([id number]) 1965 M Date Time Provider Department 10/02/21 4:00 PM CONRAD ROJAS During your visit today, we recorded the following information about you: Temperature Pulse Respiration Blood pressure 97.5 degrees 61/minute 18/minute 138/58 Weight Height 91.6 kg 1.93 m Conrad Rojas MD 10/08/2021 9:04 PM Signed NAME: Gopal Yates CLINIC NO.: [id number] DATE OF SERVICE: October 02, 2021 Referring [...] 10/02/2021 8.9 Alkaline P (more content not included)...NormalKettering Health Greene Memorial Calcium.ionized [Moles/Vol]on 11-68-5846Mjvvitv.ionized (Bld) [Mass/Vol]1.20 mmol/LNormal1.08-1.30[facility] on above:Order Comment: Specimen Type: BLOOD SPECIMENOrdering Facility: [facility] Address:[address] [place], [place] [address]Performed By: #### ####[facility] [id number] [facility] [id number] JAC[address]REETCalcium.ionized adjusted to pH 7.4 (Bld) [Moles/Vol]1.19 mmol/LNormal1.08-1.30[facility] on above:Order Comment: Specimen Type: BLOOD SPECIMENOrdering Facility: [facility] Address:[address] [place] [address] Performed By: #### ####[facility] [id number] [address] OF [place] Comprehensive metabolic 2000 panelon 36-91-4584Tlddzbq [Mass/Vol]3.6 g/dLLow 3.9-4.9COhio [facility] on above:Order Comment: Specimen Type: BLOOD SPECIMEN [facility] Address: [address] [address]Performed By: #### 28338-9 #### [facility] CLIA [id number] [address] [place], [place] [address]CPC [Catalytic activity/Vol]237 U/PDaek73-962VpdrssmwgMercy Health Perrysburg Hospital on above:Order Comment: Specimen Type: BLOOD SPECIMEN [facility] Address: [address] [place], [place] [address]Performed By: #### 04796-2 #### [facility] CLIA [id number] [address], [place] [address]BGD [Catalytic activity/Vol]23 U/VCpjejq53-81QotscunzwMercy Health Perrysburg Hospital on above:Order Comment: Specimen Type: BLOOD SPECIMEN [facility] Address: [address] [place], [place] [address]Performed By: #### 77044-8 #### [facility] CLIA [id number] [address] [place] [address]Zsgkh gap [Moles/Vol]13 mmol/LNormal9-18[facility] on above:Order Comment: Specimen Type: BLOOD SPECIMEN [facility] Address: [address] [place], [place] [address]Performed By: #### 48847-6 #### [facility] CLIA [id number] [address], [place] [address]RQA [Catalytic activity/Vol]23 U/UAnnxvu40-02CrglhrhyaMercy Health Perrysburg Hospital on above:Order Comment: Specimen Type: BLOOD SPECIMEN [facility] Address: [address] [place], [place] [address]Performed By: #### 21228-1 #### [facility] CLIA [id number] [address], [place] [address]Asjeckhtn [Mass/Vol]0.4 mg/dLNormal0.2-1.3COhio State Harding Hospital on above:Order Comment: Specimen Type: BLOOD SPECIMEN [facility] Address: [address] [place], [place] [address]Performed By: #### 64826-3 #### [facility] CLIA [id number] [address] [place], [place] [address]Ngsybiw [Mass/Vol]8.9 mg/dLNormal8.5-10.2COhio State Harding Hospital on above:Order Comment: Specimen Type: BLOOD SPECIMEN [facility] Address: [address] [place], [place] [address]Performed By: #### 64351-0 #### [facility] CLIA [id number] [address] [place] [address]Zocsmrnc [Moles/Vol]112 mmol/VBzud60-477HcixeelyxMercy Health Perrysburg Hospital on above:Order Comment: Specimen Type: BLOOD SPECIMEN [facility] Address: [address] [place], [place] [address]Performed By: #### 55435-0 #### [facility] CLIA [id number] [address] [place] [address]NX1 [Moles/Vol]18 mmol/BNmj63-93JxaoozelsKettering Health Greene Memorial Comment on above:Order Comment: Specimen Type: BLOOD SPECIMEN [facility] Address: [address] [place], [place] [address]Performed By: #### 08024-6 #### [facility] CLIA [id number] [address], [place] [address]Ivaxvbhaoi [Mass/Vol]3.91 mg/dLHigh0.73-1.22[facility] on above:Order Comment: Specimen Type: BLOOD SPECIMEN [facility] Address: [address] [place], [place] [address]Performed By: #### 94565-5 #### [facility] CLIA [id number] [address] [place] [address] 35683ZNOEEIKAL GLOMERULAR FILTRATION RATE17 mL/min/1.73m???Low>=60 [facility] on above:Order Comment: Specimen Type: BLOOD SPECIMEN [facility] Address: [address] [place], [place] [address]Result Comment: Estimated Glomerular Filtration Rate (eGFR) is calculated using the 2020 CKD-EPI cre atinine equation. This equation utilizes serum creatinine, sex, and age as parameters. The creatinine assay has traceable calibration to isotope dilution- mass spectrometry. Refer to KDIGO guidelines for clinical interpretation. In patients with unstable renal function, e.g. those with acute kidney injury, the eGFR may not accurately reflect actual GFR.Performed By: #### 59785-5 #### [facility] CLIA [id number] [address] [place] [address]Agnwkkv [Mass/Vol]125 mg/sQQwvc76-26JofgrarzuKettering Health Greene Memorial Comment on above:Order Comment: Specimen Type: BLOOD SPECIMEN [facility] Address: [address] [place], [place] [address]Result Comment: The [place] Diabetes Association (ADA) provides guidance for cutoff [...] Standards of Medical Care in Diabetes 2016, [place] [employer]. Diabetes Care. 2016.39(Suppl 1).Performed By: #### 14794-3 #### [facility] CLIA [id number] [address] [place] [address]Jorseedua [Moles/Vol]4.0 mmol/LNormal3.7-5.1[facility] ClevelandComment on above:Order Comment: Specimen Type: BLOOD SPECIMEN [facility] Address: [address] [place], [place] [address]Performed By: #### 73344-3 #### [facility] CLIA [id number] [address], [place] [address]Gcshsha [Mass/Vol]7.1 g/dLNormal6.3-8.0[facility] on above:Order Comment: Specimen Type: BLOOD SPECIMEN [facility] Address: [address] [place], [place] [address]Performed By: #### 82709-4 #### [facility]ITAL[facility] CLIA [id number] [address] [place] [address]Qksvur [Moles/Vol]143 mmol/RMnpnar538-029EdebraaktMercy Health [facility]sburg Hospital on above:Order Comment: Specimen Type: BLOOD SPECIMEN [facility] Address: [address] [place], [place] [address]Performed By: #### 40984-1 #### [facility] CLIA [id number] [address] [place], [place] [address]Gvca nitrogen [Mass/Vol]64 mg/dLHigh9-24[facility] on above:Order Comment: Specimen Type: BLOOD SPECIMEN [facility] Address: [address] [place], [place] [address]Performed By: #### 60101-9 #### [facility] CLIA [id number] [address] [place], [place] [address]Mqzzljh [Mass/Vol]3.6 g/dLLow3.9 - 4.9 g/dLGarden Grove ClinicALP [Catalytic activity/Vol]237 U/LHigh38 - 113 U/LCleveland ClinicALT [Catalytic activity/Vol]23 U/L10 - 54 U/LCleveland ClinicAnion gap [Moles/Vol]13 mmol/L9 - 18 mmol/LCleveland ClinicAST [Catalytic activity/Vol]23 U/L14 - 40 U/LCleveland ClinicBilirubin [Mass/Vol]0.4 mg/dL0.2 - 1.3 mg/dLCleveland Clinic Children[facility] For RehabilitationCalcium [Mass/Vol]8.9 mg/dL8.5 - 10.2 mg/dLCleveland Clinic [facility] For RehabilitationChloride [Moles/Vol]112 mmol/LHigh97 - 105 mmol/LCleveland ClinicCO2 [Moles/Vol]18 mmol/LLow22 - 30 mmol/LCleveland ClinicCreatinine [Mass/Vol]3.91 mg/dLHigh0.73 - 1.22 mg/dL [facility] RehabilitationEstimated Glomerular Filtration Rate17 mL/min/1.73mLow>=60 mL/min/1.73mCleveland [facility] Specialty HealthcareGlucose [Mass/Vol]125 mg/jSMdfk46 - 99 mg/dL [facility] RehabilitationPotassium [Moles/Vol]4.0 mmol/L3.7 - 5.1 mmol/LCleveland [facility] Protein [Mass/Vol]7.1 g/dL6.3 - 8.0 g/dLUK Healthcareodium [Moles/Vol]143 mmol/L136 - 144 mmol/LCleveland [facility] Specialty HealthcareUrea nitrogen [Mass/Vol]64 mg/dLHigh9 - 24 mg/dLCleveland Clinic [facility] For RehabilitationEPO SerPl-aCncon 60-99-7371Ojnejbrjpzwwpx (EPO) Qn8.2 mIU/mLNormal2.6-18.5[facility] Health ChathamComment on above:Order Comment: Specimen Type: BLOOD SPECIMENOrdering Facility: [facility] Address:[address] [place], [place] [address]Performed By: #### 54139-3 ####[facility] LABCLIA [id number] [place] [address] [place] OF AMERICAFREE LIGHT CHAINS PLUS RATIOon 12-84-8217Viwv Hawk Run Lt Chains,S125.4 mg/LCritically high3.3-19.4The [facility] Medical CenterComment on above:Performed By: #### HBSANS #### [facility] [address] [address] [address] Shilo LamFree Lambda Lt Chains,S85.1 mg/LCritically high5.7-26.3The Mimi HospitalComment on above:Performed By: #### HBSANS #### [facility] [address], [place] [address] Dr. Shilo Scruggsppa/Lambda Ratio, S1.53Orghtg7.26-1.65[facility] Comment on above:Performed By: #### HBSANS #### [facility] [address], [place] [address] Dr. Shilo LamFerritin SerPl-mCncon 57-86-7320Bxgofnfj [Mass/Vol]355.0 ng/mL Nxcbtn35.3-565.7COhio State [facility]ing Hospital on above:Order Comment: Specimen Type: BLOOD SPECIMEN [facility] Address: [address] [place], [place] [address]Performed By: #### 54919-5 #### [facility] CLIA [id number] [address] [place] [address]Ebbuud SerPl-mCncon 70-89-7280Ktrssu [Mass/Vol]10.6 ng/mL Normal>4.7COhio State Harding Hospital on above:Order Comment: Specimen Type: BLOOD SPECIMENOrdering Facility: [facility] Address:[address] [place], [place] [address]Performed By: #### 2132-9, 2284-8, 2885-2 ####[facility] LABCLIA [id number] [address] [id number] [place] OF AMERICAIMMUNOFIXATION SCREEN, SERUMon 19-74-2952WCJ RESULTNo M protein is identified.NormalNo M protein is identified. [facility] on above:Order Comment: Specimen Type: BLOOD SPECIMEN [facility] Address: [address] [place], [place] [address]Performed By: #### 91062-7 #### [facility] CLIA [id number] [address] [place] [address] 14[address]RSUPZ REVIEW (MPA)Reviewed by Gustabo Hernandes [facility] on above:Order Comment: Specimen Type: BLOOD SPECIMEN [facility] Address: [address] [place], [place] [address]Performed By: #### 52867-4 #### [facility] CLIA [id number] [address] [place] [address]EZMJKYKCRLXVAIO GAMon 28-90-2654EnG [Mass/Vol]479 mg/dLHigh 70-400[facility] on above:Order Comment: Specimen Type: BLOOD SPECIMENOrdering Facility: [facility] Address:[address] [place], [place] [address]Performed By: #### SERIMM ####[facility] LABCLIA [id number] [place] [address] [place] AMERICAIgG [Mass/Vol]1405 mg/fMOorzau036-9,600[facility] on above:Order Comment: Specimen Type: BLOOD SPECIMENOrdering Facility: [facility] Address:[address] [place], [place] [address]Performed By: #### SERIMM ####[facility] LABCLIA [id number] [place] [address] [place] IgM [Mass/Vol]136 mg/wWYidgpy10-023EeahwkrfkMercy Health [facility] Hospital on above: Order Comment: Specimen Type: BLOOD SPECIMENOrdering Facility: [facility] Address:[address] [place], [place] [address]Performed By: #### SERIMM ####[facility] LABCLIA [id number] [address] [id number] [place] OF AMERICAIron and Iron binding capacity panelon 47-04-9143Sjax [Mass/Vol]41 ug/dL41 - 186 ug/dLCleveland Clinic Children'S Hospital For RehabilitationIron binding capacity [Mass/Vol]199 ug/rRIhj505 - 386 ug/dLCleveland Clinic Children'S Hospital For RehabilitationIron/TIBC [Molar ratio]20.6 %15.0 - 57.0 %[facility] For RehabilitationIron [Mass/Vol]41 ug/dLNormal 41-186[facility] on above:Order Comment: Specimen Type: BLOOD SPECIMEN [facility] Address: [address] [place], [place] [address]Performed By: #### 66842-9 #### [facility] CLIA [id number] [address], [place] [address]Lfsb binding capacity [Mass/Vol]199 ug/eNPym557-590EzyepumggMercy Health Perrysburg Hospital on above:Order Comment: Specimen Type: BLOOD SPECIMEN [facility] Address: [address] [place], [place] [address]Performed By: #### 81279-4 #### [facility] CLIA [id number] [address] [place] [address]Kpwg/TIBC [Molar ratio]20.6 %Vqitso33.0-57.0[facility] on above:Order Comment: Specimen Type: BLOOD SPECIMEN [facility] Address: [address] [place], [place] [address]Performed By: #### 55237-0 #### [facility] CLIA [id number] [address] [place] [address]CJMDM/GARDNER,FREE,SERon 90-54-4517Rtnbyuaufrlfot light chains.kappa.free (S) [Mass/Vol]124.9 mg/LHigh3.3-19.4CLake [facility] Comment on above:Order Comment: Specimen Type: BLOOD SPECIMENOrdering Facility: [facility] Address:[address] [place] [address] Performed By: #### KLFRS ####[facility] LABCLIA [id number] [address] [id number], [place] [address] [place] AMERICAImmunoglobulin light chains.kappa/Immunoglobulin light chains.lambda (S) [Mass ratio]1.52 Normal0.26-1.65[facility] ClevelandComment on above:Order Comment: Specimen Type: BLOOD SPECIMENOrdering Facility: [facility] Address:[address] [place], [place] [address]Performed By: #### KLFRS ####[facility] LABCLIA [id number] [place] [address] [place] AMERICAImmunoglobulin light chains.lambda.free [Mass/Vol]82.3 mg/LHigh5.7-26.3CLake County Memorial [facility] Comment on above:Order Comment: Specimen Type: BLOOD SPECIMENOrdering Facility: [facility] Address:[address] [place] [address] Performed By: #### KLFRS ####[facility] LABCLIA [id number] [place] [address] [place] OF AMERICALD LACTATE DEHYDROon 73-87-2143TWB [Catalytic activity/Vol]165 U/L135 - 225 U/LClevelanson community hospital ClinicLDH SerPl-cCncon 48-06-1151QHL [Catalytic activity/Vol]165 U/LNormal 135-225K[facility]tering Health Greene MemorialComment on above:Order Comment: Specimen Type: BLOOD SPECIMEN [facility] Address: [address] [place], [place] [address]Performed By: #### 70811-0 #### [facility] CLIA [id number] [address] [place] [address] 07267CWNPBXIBUG INORGANICon 16-98-5146Ihrlznvqn [Mass/Vol]3.8 mg/dL 2.7 - 4.8 mg/dLCleveland Clinic Children'S Hospital For RehabilitationPROTEIN ELECTROPHORESIS SERUM (P)on 10-02-2021 Albumin [Mass/Vol]3.22 g/dLLow3.37-4.23K[facility] Health Greene MemorialComment on above:Order Comment: Specimen Type: BLOOD SPECIMENOrdering Facility: [facility] Address:[address] [place], [place] [address]Performed By: #### [id number] ####[facility] LABCLIA [id number] [place] [address] [place] AMERICAAlpha 1 globulin Elph [Mass/Vol]0.33 g/dLHigh0.18-0.31[facility] on above:Order Comment: Specimen Type: BLOOD SPECIMENOrdering Facility: [facility] Address:[address] [place], [place] [address]Performed By: #### [id number] ####[facility] LABCLIA [id number] [place] [address] [place] AMERICAAlpha 2 globulin Elph [Mass/Vol]0.84 g/dLNormal0.52-0.97K[facility] Greene MemorialComment on above: Order Comment: Specimen Type: BLOOD SPECIMENOrdering Facility: [facility] Address:[address] [place], [place] [address]Performed By: #### [id number] ####[facility] LABCLIA [id number] [place] [address] [place] AMERICABeta globulin Elph [Mass/Vol]0.97 g/dLNormal0.84-1.36[facility] on above: Order Comment: Specimen Type: BLOOD SPECIMENOrdering Facility: [facility] Address:[address] [place], [place] [address]Performed By: #### [id number] ####[facility] LABCLIA [id number] [place] [address] [place] AMERICAGamma globulin Elph (Body fld) [Mass fraction]1.64 g/dLHigh0.70-1.44[facility] Comment on above:Order Comment: Specimen Type: BLOOD SPECIMENOrdering Facility: [facility] Address:[address] [place], [place] [address] Performed By: #### [id number] ####[facility] LABCLIA [id number] [place] [address] [place] M-PROTEIN LOCATIONNormalCOhio State Harding Hospital on above:Order Comment: Specimen Type: BLOOD SPECIMENOrdering Facility: [facility] Address:[address] [place], [place] [address]Result Comment: Not Applicable.Performed By: #### [id number] ####[facility] LABCLIA [id number] [place] [address] [place] Protein Fractions [Interp]No definitive M protein is identified on protein electrophoresis.NormalNo definitive M protein is identified on protein electrophoresis.[facility] MemorialComsturgis hospital on above:Order Comment: Specimen Type: BLOOD SPECIMENOrdering Facility: [facility] Address:[address] [place], [place] [address]Performed By: #### [id number] ####[facility] LABIA [id number] [place] [address] [place] AMERICAProtein.monoclonal Elph [Mass/Vol]0.00 g/dLNormal<=0.00[facility] Greene MemorialComment on above:Order Comment: Specimen Type: BLOOD SPECIMENOrdering Facility: [facility] Address:[address] [place], [place] [address]Performed By: #### [id number] ####[facility] LABIA [id number] [address] [facility] DIVISIONSPE STAFF REVIEW Reviewed by Darlene Whaley MDNormalCOhio State Harding Hospital on above: Order Comment: Specimen Type: BLOOD SPECIMENOrdering Facility: [facility] Address:[address] [place] [address]Performed By: #### [id number] ####[facility] LABIA [id number] [place] [address] [place] AMERICAPhosphate SerPl-mCncon 90-37-0304Phngbdief [Mass/Vol]3.8 mg/dLNormal2.7-4.8CLake [facility] Comment on above:Order Comment: Specimen Type: BLOOD SPECIMENOrdering Facility: [facility] Address:[address] [place] [address] Performed By: #### 3084-1, 84160-9, 2532-0, 2777-1 ####[facility] LABCLIA [id number] [place], [place] [address]Jfyp SerPl-mCncon 11-23-4258Ylzpwtd [Mass/Vol]7.0 g/dLNormal6.3-8.0[facility] on above:Order Comment: Specimen Type: BLOOD SPECIMENOrdering Facility: [facility] Address:[address] [place], [place] [address]Performed By: #### 2132-9, 228-8, 2885-2 ####[facility] LABCLIA [id number] [address] OF [facility] HOSPITALURIC ACID BLOODon 82-72-6164Wgfqg [Mass/Vol]6.7 mg/dL4.0 - 8.1 mg/dLCleveland Clinic Children'S Hospital For RehabilitationUrate SerPl-mCncon 50-99-3052Vqmat [Mass/Vol]6.7 mg/dL Normal4.0-8.1COhio State [facility] on above:Order Comment: Specimen Type: BLOOD SPECIMENOrdering Facility: [facility] Address:[address] [place], [place] [address]Performed By: #### 3084-1, 63735-6, 2532-0, 2777-1 ####[facility] LABCLIA [id number] [place], [place] [address]Yjz B12 SerPl-mCncon 01-64-0360Nihckcblu (Vitamin B12) [Mass/Vol]647 pg/hINyezns015-2,245[facility] on above: Order Comment: Specimen Type: BLOOD SPECIMENOrdering Facility: [facility] Address:[address] [place], [place] [address]Performed By: #### 2132-9, 2284-8, 2885-2 ####[facility] LABCLIA [id number] [address] [address] [place] OF AMERICAFREE LIGHT CHAINS PLUS RATIOon 40-04-5940Zbui Hawk [place] Lt Chains,S132.3 mg/LCritically high 3.3-19.4The [facility] Medical CenterComment on above:Performed By: #### JULIO CESAR #### [facility] [address] [place] [address] Dr. Shilo LamFree Lambda Lt Chains,S83.4 mg/LCritically high5.7-26.3The [facility]uel HospitalComment on above:Performed By: #### ECTORT #### [facility] [address] [place] [address] Dr. Shilo Scruggsppa/Lambda Ratio, S1.58Gvvuje7.26-1.65[facility] Comment on above:Performed By: #### JULIO CESAR #### [facility] [address] [place] [address] Dr. Shilo LamIMMUNOFIXATION (DARYL), URINEon 67-37-4860NQR Interpretation:U CommentNormalThMercy HealthComment on above:Result Comment: No monoclonality detected.Performed By: #### IMUNFXU #### [facility] [address] [place] [address] Dr. Shilo LamPTH INTACTon 38-12-4194RPT, Nslwdz70 pg/mLCritically eeia25-82Ovx [facility] CenterComment on above:Performed By: #### JULIO CESAR #### [facility] [address] [place] [address] Dr. Shilo LamFERRITINon [id number] [Mass/Vol]324.0 ng/mLNormal 26.0-388.0The [facility] CenterComment on above:Performed By: #### HH #### [facility] [address] [place] [address] Dr. Shilo LamHEMOGRAM AND PLATELon [id number] (Bld) [Volume fraction]26.6 %Critically low42.0-54.0The [facility] CenterComment on above: Performed By: #### HBSANS #### [facility] [address] [place] [address] Dr. Shilo LamHemoglobin (Bld) [Mass/Vol]8.8 g/dLCritically low14.0-18.0The [facility] CenterComment on above:Performed By: #### HBSANS #### [facility] [address] [place] [address] Dr. Shilo MendozaH (RBC) [Entitic mass]27.7 hmFeeoom48.9-34.0The [facility] CenterComment on above:Performed By: #### HBSANS #### [facility] Laboratory [address] [place] [address] Dr. Shilo Mendoza (RBC) [Mass/Vol]33.1 g/qRIdoycx25.9-35.2The [facility] CenterComment on above:Performed By: #### HBSANS #### [facility] Laboratory [address] [place] [address] Dr. Shilo Mendoza (RBC) [Entitic vol]83.6 yNSwouki62.0-94.0The [facility] CenterComment on above:Performed By: #### HBSANS #### [facility] Laboratory [address] [place] [address] Dr. Shilo LamPLT155 103/diGwplvm101-935Mwb [facility] CenterComment on above: Performed By: #### HBSANS #### [facility] Laboratory [address] [place] [address] Dr. Shilo LamRBC3.18 106/ulCritically low4.70-6.10The [facility] CenterComment on above:Performed By: #### HBSANS #### [facility] Laboratory [address] [place] [address] Dr. Shilo LamWBC6.1 103/ulNormal4.0-11.0The [facility] CenterComment on above: Performed By: #### HBSANS #### [facility] Laboratory [address] [place] [address] Dr. Shilo Hernandez AND [facility] 09-[facility]-2021% EGTAKZQWBF43.0 %NormalThe [facility] Medical CenterComment on above:Performed By: #### HH #### [facility] Laboratory [address] [place] [address] Dr. Shilo Hernandez [Mass/Vol]44.0 ug/dLCritically low65.0-175.0The [facility] CenterComment on above:Performed By: #### HH #### [facility] Laboratory [address] [place] [address] Dr. Shilo LamTIBHortencia GOQFLV647.0 ug/dLCritically xwo662.0-450.0The [facility] CenterComment on above:Performed By: #### HH #### [facility] Laboratory [address] [place] [address] Dr. Shilo Hollins 14(COMP METB)on 04-97-9609Vxqfefn [Mass/Vol]2.8 g/dL Critically low3.4-5.0The [facility] CenterComment on above:Performed By: #### JULIO CESAR #### [facility] Laboratory [address] [place] [address] Dr. Shilo LamAlbumin/Globulin [Mass ratio]0.6 {ratio}NormalThe [facility] Medical CenterComment on above:Performed By: #### JULIO CESAR #### [facility] Laboratory [address] [place] [address] Dr. Shilo Sandoval [Catalytic activity/Vol]219 U/LCritically kawz58-974Hzv [facility] CenterComment on above:Performed By: #### JULIO CESAR #### [facility] Laboratory [address] [place] [address] Dr. Shilo Ag [Catalytic activity/Vol]33 U/TKpmoxy06-92Dhz [facility] CenterComment on above:Performed By: #### JULIO CESAR #### [facility] Laboratory [address] [place] [address] Dr. Shilo Renee gap [Moles/Vol]14.7 mmol/LNormalThe [facility] on above:Performed By: #### JULIO CESAR #### [facility] Laboratory [address] [place] [address] Dr. Yilan ChangAST [Catalytic activity/Vol]22 U/QJhrphv01-87Qzs [facility] CenterComment on above:Performed By: #### ECTORT #### [facility] Laboratory [address] [place] [address] Dr. Shilo LamBilirubin [Mass/Vol]0.4 mg/dLNormal0.2-1.0[facility] Comment on above:Performed By: #### ECTORT #### [facility] Laboratory [address] [place] [address] Dr. Shilo LamCalcium [Mass/Vol]8.4 mg/dLCritically low8.5-10.1The [facility] CenterComment on above:Performed By: #### ECTORT #### [facility] Laboratory [address] [place] [address] Dr. Shilo LamChloride [Moles/Vol]109 mmol/LCritically clpz29-636Ojn [facility] CenterComment on above:Performed By: #### ECTORT #### [facility] Laboratory [address] [place] [address] Dr. Shilo LamCO2 [Moles/Vol]21.3 mmol/MQouddl11.0-32.0[facility] Comment on above:Performed By: #### ECTORT #### [facility] Laboratory [address] [place] [address] Dr. Shilo LamCreatinine [Mass/Vol]3.99 mg/dLCritically high0.70-1.30The [facility] CenterComment on above:Performed By: #### ECTORT #### [facility] Laboratory [address] [place] [address] Dr. Lao ChangEGFR-AF RPJRIIEO90 mL/min/1.97s6Zhezytpuoy low>=60The [facility] CenterComment on above:Performed By: #### ECTORT #### [facility] Laboratory [address] [place] [address] Dr. Lao ChangEGFR-NON AF ZHYYUSWZ41 mL/min/1.51e9Wsckugbscp low>=60The [facility] CenterComment on above:Performed By: #### ECTORT #### [facility] Laboratory [address] [address] [address] Shilo LamGlobulin (S) [Mass/Vol]4.8 g/dLNormOhioHealth Riverside Methodist HospitalComment on above:Performed By: #### DANISLIT #### [facility] Laboratory [address] [address] [address] Shilo LamGlucose [Mass/Vol]137 mg/dLCritically qhnq82-796Jvy [facility] CenterComment on above:Performed By: #### DANISLIT #### [facility] Laboratory [address] [address] [address] Shilo LamPotassium [Moles/Vol]4.0 mmol/LNormal3.5-5.1The [facility] Comment on above:Performed By: #### ECTORT #### [facility] Laboratory [address] [address] [address] Shilo LamProtein [Mass/Vol]7.6 g/dLNormal6.4-8.2The [facility] Comment on above:Performed By: #### ECTORT #### [facility] Laboratory [address] [address] [address] Shilo LamSodium [Moles/Vol]141 mmol/FCsedem761-907Pxn [facility] Comment on above:Performed By: #### ECTORT #### [facility] Laboratory [address] [address] [address] Shilo LamUrea nitrogen [Mass/Vol]54.0 mg/dLCritically high7.0-18.0The [facility] CenterComment on above:Performed By: #### DANISLIT #### [facility] Laboratory [address] [address] [address] Shilo Armendariz nitrogen/Creatinine [Mass ratio]13.5 mg/mgNoKing's Daughters Medical Center OhioComment on above:Performed By: #### DANISLIT #### [facility] Laboratory [address] [address] [address] Shilo Ibrahim RANDOMon 37-71-6235Lobrykknc Ql (U)NegativeNormalNEGATIVEThe [facility] Medical CenterComment on above:Performed By: #### HH #### [facility] Laboratory [address] [address] [address] Shilo LamClarity (U)CLEARNormalCLEARMercy HealthComment on above: Performed By: #### HH #### [facility] Laboratory [address] [address] [address] Shilo Swainlor (U)LT. YELLOWNormalYELLOWMercy HealthComment on above:Performed By: #### HH #### [facility] [address] [address] [address] Shilo LamGlucose Ql (U)100 mg/dlAbnormalNEGMemorial Health System [facility] Comment on above:Performed By: #### HH #### [facility] Laboratory [address] [place] [address] Dr. Shilo LamHemoglobin Ql (U)NegativeNormalNEGMemorial Health System [facility] Comment on above:Performed By: #### HH #### [facility] Laboratory [address] [place] [address] Dr. Shilo LamKetones Ql (U)NegativeNormalNEGATIVEMercy HealthComment on above:Performed By: #### HH #### [facility] Laboratory [address] [address] [address] Shilo LamLEUKOCYTESNegativeNormalNEGATIVEMercy HealthComsturgis hospital on above:Performed By: #### HH #### [facility] Laboratory [address] [address] [address] Shilo LamNitrite Ql (U)NegativeNormalNEGATIVEMercy HealthComment on above:Performed By: #### HH #### [facility] Laboratory [address] [address] [address] Shilo LampH (U)5.5 [pH]Normal5-9The [facility] Medical CenterComsturgis hospital on above: Performed By: #### HH #### [facility] Laboratory [address] [place] [address] Dr. Shilo LamSPEC GRAVITY1.252Zxauta8.005-<=1.025The [facility] Medical CenterComment on above:Performed By: #### HH #### [facility] Laboratory [address] [place] [address] Dr. Shilo Ibrahim PROTEIN>300AbnormalNEGATIVE/ TRACEThe [facility] Medical CenterComment on above:Performed By: #### HH #### [facility] Laboratory [address] [place] [address] Dr. Shilo Stanleybilinogen Qn (U)0.2 {Gama'U}/dLNormal0.2 - 1.0The [facility] CenterComment on above:Performed By: #### HH #### [facility] Laboratory [address] [place] [address] Dr. Shilo Reeves T PROTEIN CREAT RATIOon 32-52-2137Eiovdgd (U) [Mass/Vol] 862.4 mg/dLCritically high<=12.0The [facility] CenterComment on above:Performed By: #### HBSANS #### [facility] Laboratory [address] [place] [address] Dr. Shilo Bourne PROT CREAT RAT8.46NoKing's Daughters Medical Center OhioComment on above: Performed By: #### HBSANS #### [facility] Laboratory [address] [place] [address] Dr. Shilo Reeves GRNKR241.94 mg/sCKxisxt89.00-300.00[facility] Comment on above:Performed By: #### HBSANS #### [facility] Laboratory [address] [place] [address] Dr. Shilo LamVITAMIN D 25 OHon 46-44-4336MEM D 25-OH27.7 ng/mLNormalThe [facility] Medical CenterComment on above:Performed By: #### HH #### [facility] Laboratory [address] [place] [address] Dr. Shilo Granger D RANGESSEE BELOWMartins Ferry HospitalComment on above: Result Comment: <20 ng/mL Vit D deficient 20 - <30 ng/mL Vit D insufficient 30 - 100 ng/mL Vit D sufficient >100 ng/mL Potential ToxicityPerformed By: #### HH #### [facility] [address] [place], [place] [address] Dr. Shilo LamCardiovascular Lab Reporton [id number] Lab Report [facility] Patient Name: Gopal Yates [facility] MR #: [id number] Physician: Casimiro Khalil of [facility] Medicine Service Date: 05/20/2021 Division of Birthdate: 1965 Cardiology Room #: Adult Cardiovascular Services [facility] [address] [address] Cardiovascular Laboratory Report INDICATION: The patient is [...] He signed consent. He was brought to r&d lab technician in a fasting state. The right neck area was prepped and draped in usual fashion. Micropuncture technique and ultrasound guidance was used for access in the right internal jugular vein. A 6-Gabonese x 11 cm sheath was placed. A 6-Gabonese Silvestre catheter was used for heart catheterization [...] output 11.61, cardiac index 5.23. FINDINGS: 1. Oaau-mq-gskboxbq elevation of filling pressures. 2. Gfet-qd-gikfzqex pulmonary hypertension. 3. No evidence of intracardiac [...] Sosa M.D. Date Trans: 05/21/2021 03:58 A/katey DN_JN:[id number] cc: Douglas Juárez M.D. [address] [place] Shital [facility] [id number] VA Medical Center W/DIFFon [id number] IMM GRANS0.0 10*3/uLNormal0.0-0.2The [facility] SystemComment on above:Performed By: #### [id number] #### [facility] [address] [place] [address], [facility] HOSPITALABS NEUTROPHILS4.5 10*3/uLNormal1.6-7.6The [facility] SystemComment on above:Performed By: #### [id number] #### [facility] [address] [place] [address], [facility] HOSPITALBasophils (Bld) [#/Vol]0.0 10*3/uLNormal0.0-0.2The [facility] SystemComment on above:Performed By: #### [id number] #### [facility] [address] [place] [address], USABasophils/100 WBC (Bld)0.5 %Normal0.0-1.0The [facility] SystemComment on above:Performed By: #### [id number] #### [facility] [address] [place] [address], USAEosinophils (Bld) [#/Vol]0.2 10*3/uLNormal0.0-0.5The [facility] SystemComment on above:Performed By: #### [id number] #### [facility] [address] [place] [address], USAEosinophils/100 WBC (Bld)3.1 %Normal0.0-6.0The [facility] SystemComment on above:Performed By: #### [id number] #### [facility] [address] [place] [address], USAErythrocyte distribution width (RBC) [Ratio]16.1 %High 11.5-15.0The [facility] SystemComment on above:Performed By: #### [id number] #### [facility] [address] [place] [address], USAHematocrit (Bld) [Volume fraction]27.0 %Low39.0-50.0The [facility] SystemComment on above:Performed By: #### [id number] #### [facility] [address] [place] [address], USAHemoglobin (Bld) [Mass/Vol]8.5 g/dLLow13.0-17.0The [facility] SystemComment on above:Performed By: #### [id number] #### [facility] [address] [place] [address], NOR-[facility] GENERAL HOSPITALIMMATURE GRANS0.2 %Normal0.0-1.0The [facility] of Barboza Medical CenterComment on above:Performed By: #### [id number] #### [facility] [address] [place] [address], USALymphocytes (Bld) [#/Vol]0.7 10*3/uLLow1.2-4.0The [facility] SystemComment on above:Performed By: #### [id number] #### [facility] [address] [place] [address], USALymphocytes/100 WBC (Bld)11.1 %Low20.0-45.0The [facility] Health SystemComment on above:Performed By: #### 19702 #### [facility] [address] [facility] [facility] [place] [address], NOR-[facility] GENERAL HOSPITALMCH (RBC) [Entitic mass]25.1 pgLow27.0-33.0The [facility] SystemComment on above:Performed By: #### [id number] #### [facility] [address] [place] [address], [facility] GENERAL HOSPITALMCHC (RBC) [Mass/Vol]31.5 g/dLLow32.0-35.0The [facility] SystemComment on above:Performed By: #### [id number] #### [facility] [address] [place] [address], [facility] GENER[facility] HOSPITALMCV (RBC) [Entitic vol]79.9 fLLow82.0-98.0The [facility] SystemComment on above:Performed By: #### [id number] #### [facility] [address] [place] [address], USAMonocytes (Bld) [#/Vol]0.7 10*3/uLNormal0.1-1.0The [facility] SystemComment on above:Performed By: #### [id number] #### [facility] [address] [place] [address], RABBDHEV77.1 %High5.0-12.0The [facility] SystemComment on above:Performed By: #### [id number] #### [facility] [address] [place] [address], USANeutrophils/100 WBC (Bld)73.0 %High40.0-72.0The [facility] SystemComment on above:Performed By: #### 63554 #### [facility] [address] [place] [address], USANucleated RBC/100 WBC (Bld) [Ratio]0 %Normal0-0The [facility] SystemComment on above:Performed By: #### [id number] #### [facility] [address] [place] [address], USAPLAT MGV376 10*3/cEEuwdbe115-843Yln [facility] SystemComment on above:Performed By: #### [id number] #### [facility] [address] [place] [address], USARBC (Bld) [#/Vol]3.38 10*6/uLLow4.20-5.70The [facility] SystemComment on above:Performed By: #### [id number] #### [facility] [address] [place] [address], USAWBC (Bld) [#/Vol]6.14 10*3/uLNormal4.00-10.60The [facility] SystemComment on above:Performed By: #### [id number] #### [facility] [address] [place] [address], [facility] GENER[facility] HOSPITALPOC SARS COV2 IDon [id number]-CoV-2 (COVID-19) RNA HUMBLE+probe Ql (Unsp spec)NegativeNormalNEGATIVEThe [facility] Health SystemComment on above:Result Comment: ID NOW COVID-19 assay performed on the ID NOW [...] Waiver, Certificate of Compliance, or Certificate of Accreditation.Performed By: #### [id number] #### [address] Vital Signs Date TimeVital SignValuePerforming [id number] 13:26-0400Body pzsade620 cmSteven Rusher DPM Work Phone: [phone]07-07-2025 13:26-0400Body mass index (BMI) [Ratio]23.49 kg/k4Devctc Rusher DPM Work Phone: [phone]07-07-2025 13:26-0400Body gwdhdi97.54 kgSteven Rusher DPM Work Phone: [phone] HospitalOzzcjwghaj61-53-3583 13:30-0400Body jcqkao988.04 cmNor[facility]05-22-2025 13:30-0400Body mass index (BMI) [Ratio]25.3 kg/g6ViqstxvqmNorwalk Memorial Hospital05-22-2025 13:30-0400Body .34 kgNorwalk Memorial Hospital05-22-2025 13:30-0400Diastolic blood mtudaojj67 mm[Hg][facility]05-22-2025 13:30-0400 Heart rate70 /minNorwalk Memorial Hospital05-22-2025 13:30-0400Systolic blood iwsaviws196 mm[Hg][facility]04-29-2025 13:44-0400 Body uvqnxr593 cmSteven Rusher DPM Work Phone: [facility] HospitalLgnjgtbusw42-02-2241 13:44-0400Body mass index (BMI) [Ratio]23.49 kg/a8Iwoeikcharis Corado DPM Work Phone: [facility] HospitalWbaebrpkbp75-50-3519 13:44-0400Body .54 kgStevdayton Corado DPM Work Phone: [facility] HospitalYilzmkyvgf79-67-1191 14:32-0400Blood Pressure LocationMichael NILL [phone]-YjfftMercy [facility] [place] 09-16-2023 14:32-0400Diastolic blood rbhzgytr15 mm[Hg]Ashutosh NILL [phone]-VcdhkRegency Hospital [facility] 09-16-2023 14:32-0400Heart rate66 /minMichael NILL [phone]-TzkjvMercy Memorial Hospital [facility] [place] 09-16-2023 14:32-0400Respiratory rate16 /minMichael NILL [phone]-ZgycyMercy Memorial Hospital [facility] [place] 09-16-2023 14:32-0400Systolic blood mm[Hg]Ashutosh NILL [phone]-QbsfbRegency Hospital [facility] 06-15-2022 10:20-0400Body nukzocynmuz05.8 [degF]MD Douglas Juárez Work Phone: [facility]03-27-2023 10:20-0400 Diastolic blood ucmfrtbf61 mm[Hg]MD Douglas Juárez Work Phone: [facility]03-27-2023 10:20-0400 Heart rate55 /minMD Douglas Juárez Work Phone: [facility]03-27-2023 10:20-0400 Respiratory rate22 /minMD Douglas Juárez Work Phone: [facility]03-27-2023 10:20-0400 SaO2% (BldA) [Mass fraction]92 %MD Douglas Juárez Work Phone: 1(730)[address] [place], [place] 1865103-27-2023 10:20-0400 Systolic blood inqvzrtq153 mm[Hg]MD Douglas Juárez Work Phone: 1(186)[address] [place], [place] 1865103-27-2023 04:31-0400 Inhaled oxygen flow rate1 L/minMD Pelayo Brysonshannon Work Phone: 1(825)[address] [place], [place] 1865103-24-2023 14:43-0400 Body ooudrd124.04 cmMD Hoy Work Phone: 1(436)[address] [place], [place] 1865103-24-2023 04:46-0400 Body lzuyjj51 kgMD Douglas Juárez Work Phone: 1(911)[address] [place], [place] 1865103-23-2023 21:13-0400 Body xgyjbn882.04 cmMD Douglas Juárez Work Phone: 1(593)[address] [place], [place] 1865103-23-2023 21:13-0400 Body lhpvwicjnih21.5 [degF]MD Douglas Juárez Work Phone: 1(989)[address] [place], [place] 1865103-23-2023 21:13-0400 Body uixnsq92 kgMD Douglas Juárez Work Phone: 1(511)[address] [place], [place] 1865103-23-2023 21:13-0400 Diastolic blood trkmwfly22 mm[Hg]MD Douglas Juárez Work Phone: 1(996)[address] [place], [place] 1865103-23-2023 21:13-0400 Heart rate66 /minMD Pelayo Brysonshannon Work Phone: 1(271)[address] [place], [place] 1865103-23-2023 21:13-0400 Respiratory rate21 /minMD Pelayo Brysonshannon Work Phone: 1(636)[address] [place], [place] 1865103-23-2023 21:13-0400 SaO2% (BldA) [Mass fraction]92 %MD Douglas Juárez Work Phone: 1(755)[address] [place], [place] 1865103-23-2023 21:13-0400 Systolic blood rammexcj355 mm[Hg]MD Douglas Juárez Work Phone: [phone] [place], [place] 6015703-20-2023 11:40-0400 Body ntllmcmloke52.1 [degF]MD Douglas Juárez Work Phone: 1([phone])[address] [place], [place] 1865103-20-2023 11:40-0400 Diastolic blood mxchytno20 mm[Hg]MD Douglas Juárez Work Phone: 1(373)[address] [place], [place] 1865103-20-2023 11:40-0400 Heart rate62 /minMD Hoy Work Phone: 1(290)[address] [place], [place] 1865103-20-2023 11:40-0400 Systolic blood ufzowyfq443 mm[Hg]MD Douglas Juárez Work Phone: 1(968)[address] [place], [place] 1865103-17-2023 11:21-0400 Respiratory rate18 /min Brysony Work Phone: 1(771)[address] [place], [place] 1865103-17-2023 11:21-0400 SaO2% (BldA) [Mass fraction]97 %MD Douglas Juárez Work Phone: 1(041)[address] [place], [place] 1865103-09-2023 15:20-0500 Diastolic blood kivzooqh76 mm[Hg]MD Douglas Juárez Work Phone: 1(384)[address] [place], [place] 1865103-09-2023 15:20-0500 Heart rate64 /min Marquita Work Phone: 1(169)[address] [place], [place] 1865103-09-2023 15:20-0500 Respiratory rate16 /minMD Douglas Juárez Work Phone: 1(556)[facility]-[address] [place], [place] 6015703-09-2023 15:20-0500 SaO2% (BldA) [Mass fraction]95 %MD Douglas Juárez Work Phone: 1(603)[address] [place], [place] 1865103-09-2023 15:20-0500 Systolic blood jabudntv855 mm[Hg]MD Douglas Juárez Work Phone: 1(500)[address] [place], [place] 1865103-09-2023 14:46-0500 Body jkwbloywelk21.4 [degF]MD Douglas Juárez Work Phone: 1(433)[address] [place], [place] 1865103-09-2023 14:16-0500 Inhaled oxygen flow rate8 L/minMD Douglas Juárez Work Phone: 1(147)[address] [place], [place] 1865103-09-2023 12:45-0500 Body .04 cmMD Douglas Masseyy Work Phone: [address] [place], [place] 1865103-09-2023 12:45-0500 Body mass index (BMI) [Ratio]23.1 kg/m2MD Douglas Masseyy Work Phone: [phone])[address] [place], [place] 1865103-09-2023 12:45-0500 Body .18 kgMD Douglas Juárez Work Phone: 1(409)[address] [place], [place] 1865103-06-2023 16:07-0500 Body dzdcrkeutuj99.2 [degF]MD Douglas Juárez Work Phone: 1(024)[address] [place], [place] 1865103-06-2023 16:07-0500 Diastolic blood mwihnppo10 mm[Hg]MD Douglas Juárez Work Phone: 1(419)[address] [place], [place] 1865103-06-2023 16:07-0500 Heart rate62 /minMD Douglas Juárez Work Phone: 1(462)[address] [place], [place] 1865103-06-2023 16:07-0500 SaO2% (BldA) [Mass fraction]98 %MD Douglas Juárez Work Phone: 1(193)[address] [place], [place] 1865103-06-2023 16:07-0500 Systolic blood jjnvalps495 mm[Hg]MD Douglas Juárez Work Phone: 1(705)[address] [place], [place] 1865103-06-2023 11:37-0500 Respiratory rate16 /minMD Douglas Juárez Work Phone: 1(033)[address] [place], [place] 1865103-06-2023 05:13-0500 Body szswfa44 kgMD Douglas Juárez Work Phone: 1(305)[address] [place], [place] 1865103-02-2023 17:46-0500 Body vqcpxo659.04 cmMD Douglas Juárez Work Phone: 1(416)[address] [place], [place] 1865103-02-2023 17:46-0500 Body mass index (BMI) [Ratio]22.6 kg/m2MD Hoy Work Phone: 1([phone] [place], [place] 6015703-01-2023 15:10-0500 Body rtyxbnlqsax34 [degF]MD Douglas Juárez Work Phone: [phone])[address]03-01-2023 15:10-0500 Diastolic blood muduxihp23 mm[Hg]MD Douglas Juárez Work Phone: 1(419)483-[address] [place], [place] 6015703-01-2023 15:10-0500 Heart rate69 /minMD Hoy Work Phone: [phone])[address] [place], [place] 1865103-01-2023 15:10-0500 Respiratory rate18 /minMD Hoy Work Phone: [phone])[address] [place], [place] 1865103-01-2023 15:10-0500 SaO2% (BldA) [Mass fraction]95 %MD Douglas Juárez Work Phone: 1(419)[facility]-[address] [place], [place] 6015703-01-2023 15:10-0500 Systolic blood zpnazlla251 mm[Hg]MD Douglas Juárez Work Phone: 1419)[facility]-[address] [place], [place] 6015703-01-2023 10:16-0500 Body iijaas272.04 cmMD Hoy Work Phone: 1(077)[address] [place], [place] 1865103-01-2023 10:16-0500 Body .71 kgMD Hoy Work Phone: 1419)[facility]-[address] [place], [place] 6015702-17-2023 15:41-0500 Body .2 [degF]MD Douglas Juárez Work Phone: 1419)[facility]-[address] [place], [place] 6015702-17-2023 15:41-0500 Diastolic blood rabqlrqm83 mm[Hg]MD Douglas Juárez Work Phone: 1(270)[address] [place], [place] 1865102-17-2023 15:41-0500 Heart rate60 /minMD Hoy Work Phone: 1(780)[facility]-[address] [place], [place] 6015702-17-2023 15:41-0500 Respiratory rate16 /minMD Hoy Work Phone: 1419)[facility]-[address] [place], [place] 6015702-17-2023 15:41-0500 SaO2% (BldA) [Mass fraction]95 %MD Douglas Juárez Work Phone: 1(419)[address] [address] [place], [place] 1865102-17-2023 15:41-0500 Systolic blood eyyqcpct261 mm[Hg]MD Douglas Juárez Work Phone: 1(419)[address] [place], [place] 1865102-17-2023 10:00-0500 Body ybawdm799.04 cmMD Hoy Work Phone: 1(419)[address] [place], [place] 1865102-17-2023 04:10-0500 Body evfcmy85.71 kgMD Hoy Work Phone: [phone])[address] [place], [place] 1865102-16-2023 11:42-0500 Body mass index (BMI) [Ratio]23.8 kg/m2MD Hoy Work Phone: 1(419)[address] [place], [place] 1865102-14-2023 16:22-0500 Diastolic blood thkljtza34 mm[Hg]MD Douglas Juárez Work Phone: 1(419)[address] [place], [place] 1865102-14-2023 16:22-0500 Heart rate65 /minMD Hoy Work Phone: 1(419)[address] [place], [place] 1865102-14-2023 16:22-0500 Respiratory rate18 /minMD Hoy Work Phone: [phone])[address] [place], [place] 1865102-14-2023 16:22-0500 SaO2% (BldA) [Mass fraction]100 %MD Douglas Juárez Work Phone: 1(419)[address] [place], [place] 1865102-14-2023 16:22-0500 Systolic blood rqfitspy944 mm[Hg]MD Douglas Juárez Work Phone: [phone])[address] [place], [place] 1865102-14-2023 11:33-0500 Body ufrpaa020.04 cmMD Douglas Juárez Work Phone: [phone])[address] [place], [place] 1865102-14-2023 11:33-0500 Body lbitgscdhgf62.2 [degF]MD Douglas Juárez Work Phone: [facility]02-14-2023 11:33-0500 Body gjcohi65 kgMD Douglas Juárez Work Phone: [facility]01-26-2023 14:51-0500 Body qqdiue376 cmMonik Dotson APRN.[employer] Work Phone: [facility]01-26-2023 14:51-0500Body temperature 97 [degF]Monik Dotson APRN.[employer] Work Phone: [facility]01-26-2023 14:51-0500Body rrondy65.81 kgMonik Dotson APRN.[employer] Work Phone: [facility]01-26-2023 14:51-0500Diastolic blood imfulfte66 mm[Hg]Monik Dotson APRN.[employer] Work Phone: [facility]01-26-2023 14:51-0500Heart rate59 /min Monik Dotson APRN.[employer] Work Phone: [facility]01-26-2023 14:51-0500Respiratory rate 18 /minMonik Dotson APRN.[employer] Work Phone: [facility]01-26-2023 14:51-8418UoR7% (BldA) [Mass fraction]95 %Monik Dotson APRN.[employer] Work Phone: [facility]01-26-2023 14:51-0500Systolic blood dwhzdsir976 mm[Hg]Monik Dotson APRN.[employer] Work Phone: [facility]01-03-2023 14:00-0500Body dotubl581.04 Kathy Butts [facility] [employer] Other [id number] 14:00-0500Body mass index (BMI) [Ratio] 23.59 kg/m2Crisotbal Butts Other [place] [employer] Other 01-03-2023 14:00-0500Body sgetbhxfqyc90.7 [degF]Cristobal Butts Other [place] [employer] Other 01-03-2023 14:00-0500Body xqsrti21.91 kgCristobal Butts Other [place] [employer] Other 01-03-2023 14:00-0500Diastolic blood tlehqhpo51 mm[Hg] Cristobal Butts Other [facility] [employer] Other 01-03-2023 14:00-0500Respiratory rate18 /minCristobal Butts Other [place] [employer] Other 01-03-2023 14:00-2417BsG6% (BldA) [Mass fraction]98 % Cristobal Butts Other [facility] [employer] Other 01-03-2023 14:00-0500Systolic blood wqizbwtu992 mm[Hg] Cristobal Butts Other [place] [employer] Other 12-28-2022 14:37-0500Body ebxgwatonib36.5 [degF] Lab/[employer] Work Phone: [facility]12-28-2022 14:37-0500Diastolic blood npuaftds91 mm[Hg]Lab/[employer] Work Phone: [facility]12-28-2022 14:37-0500Heart rate60 /min Lab/[employer] Work Phone: [facility]12-28-2022 14:37-0500Respiratory rate 18 /minLab/[employer] Work Phone: [facility]12-28-2022 14:37-3124YwI3% (BldA) [Mass fraction]97 %Lab/[facility] Work Phone: [facility]12-28-2022 14:37-0500Systolic blood nblqtuwr359 mm[Hg]Lab/[facility] Work Phone: [facility]11-16-2022 14:05-0500Body temperature 97.81 [degF]Lab/[facility] Work Phone: [facility]11-16-2022 14:05-0500Diastolic blood ahppytsh45 mm[Hg]Lab/[facility] Work Phone: [facility]11-16-2022 14:05-0500Heart rate66 /min Lab/[facility] Work Phone: [facility]11-16-2022 14:05-0500Respiratory rate 18 /[facility] Work Phone: [facility]11-16-2022 14:05-7869WlK3% (BldA) [Mass fraction]99 %Lab/[facility] Work Phone: [facility]11-16-2022 14:05-0500Systolic blood mm[Hg]Lab/[facility] Work Phone: [facility]10-26-2022 14:22-0400Body wgnjdu476 cm Monik Dotson APRN.[employer] Work Phone: [facility]10-26-2022 14:22-0400Body temperature 97.59 [degF]Monik Dotson APRN.[employer] Work Phone: [facility]10-26-2022 14:22-0400Body qjezpg37.46 kgMonik Dotson APRN.CNP Work Phone: [facility]10-26-2022 14:22-0400Diastolic blood qmceoknq29 mm[Hg]Monik Dotson APRN.[employer] Work Phone: [facility]10-26-2022 14:22-0400Heart rate57 /min Monik Dotson APRN.[employer] Work Phone: [facility]10-26-2022 14:22-0400Respiratory rate 16 /minMonik Dotson APRN.[employer] Work Phone: [facility]10-26-2022 14:22-6116XwK7% (BldA) [Mass fraction]97 %Monik Dotson APRN.[employer] Work Phone: [facility]10-26-2022 14:22-0400Systolic blood kdbzrypk279 mm[Hg]Monik Dotson APRN.[facility] Work Phone: [facility]10-11-2022 11:00-0400Body sahhut461.04 Jasvir Sam Other [place] [employer] Other 10-11-2022 11:00-0400Body mass index (BMI) [Ratio] 23.73 kg/r2SogtpnkFord Sam Other [place] [employer] Other 10-11-2022 11:00-0400Body mvxvua13.45 kgCammanan Sam Other [place] [employer] Other 09-28-2022 14:08-0400Body Sara Rojas MD Work Phone: [facility]09-28-2022 14:08-0400Body temperature 97.7 [degF]Conrad Rojas MD Work Phone: [facility]09-28-2022 14:08-0400Body zojdqv54.82 kgConrad Rojas MD Work Phone: [facility]09-28-2022 14:08-0400Diastolic blood jnmdqvak65 mm[Hg]Conrad Rojas MD Work Phone: [facility]09-28-2022 14:08-0400Heart rate56 /min Conrad Rojas MD Work Phone: [facility]09-28-2022 14:08-0400Respiratory rate 16 /minConrad Rojas MD Work Phone: [facility]09-28-2022 14:08-1077NkN7% (BldA) [Mass fraction]98 %Conrad Rojas MD Work Phone: [facility]09-28-2022 14:08-0400Systolic blood ipdjgfdy047 mm[Hg]Conrad Rojas MD Work Phone: [facility]09-20-2022 14:00-0400Body .04 Kathy Keshiaimelda Other [employer] Other 09-20-2022 14:00-0400Body mass index (BMI) [Ratio] 24.17 kg/m2Cristobal Keshiaimelda Other [employer] Other 09-20-2022 14:00-0400Body .08 kgCristobal Keshiaimelda Other [employer] Other 09-20-2022 14:00-0400Diastolic blood qbchupiz99 mm[Hg] Cristobal Butts Other [employer] Other 09-20-2022 14:00-0400Respiratory rate18 /minCristobal Mauricehelenimelda Other [employer] Other 09-20-2022 14:00-4526GoA2% (BldA) [Mass fraction]96 % Ceciliomario Keshiaimelda Other [employer] Other 09-20-2022 14:00-0400Systolic blood nskcuqrg891 mm[Hg] Cristobal Butts Other [place] [employer] Other [id number] 13:40-0400Body niisfy265 cmMonik Dotson APRN.[employer] Work Phone: [facility]09-14-2022 13:40-0400Body temperature 97.59 [degF]Monik Dotson [employer].ENTH[employer]DER [employer] Work Phone: [facility]09-14-2022 13:40-0400Body cebdzl06.63 kgMonik Dotson APRN.[employer] Work Phone: [facility]09-14-2022 13:40-0400Diastolic blood nnamebdc79 mm[Hg]Monik Dotson APRN.[employer] Work Phone: [facility]09-14-2022 13:40-0400Heart rate60 /min Monki Dotson APRN.[employer] Work Phone: [facility]09-14-2022 13:40-0400Respiratory rate 16 /minMonik Dotson APRN.[employer] Work Phone: [facility]09-14-2022 13:40-4704KuV8% (BldA) [Mass fraction]98 %Monik Dotson APRN.[employer] Work Phone: [facility]09-14-2022 13:40-0400Systolic blood dekgcana478 mm[Hg]Monik Dotson APRN.[employer] Work Phone: [facility]08-31-2022 13:55-0400Body temperature 98.1 [degF]Lab/[place] Work Phone: [facility]08-31-2022 13:55-0400Diastolic blood uszetbrt47 mm[Hg]Lab/[place] Work Phone: [facility]08-31-2022 13:55-0400Heart rate59 /min Lab/[place] Work Phone: [facility]08-31-2022 13:55-0400Respiratory rate 18 /minLab/[place] Work Phone: [facility]08-31-2022 13:55-8851AcU0% (BldA) [Mass fraction]97 %Lab/[place] Work Phone: [facility]08-31-2022 13:55-0400Systolic blood mm[Hg]Lab/[place] Work Phone: [facility]08-29-2022 14:23-0400Body temperature 97.9 [degF]MD Douglas Juárez Work Phone: 1(084)298-[address] [place], [place] 6015708-29-2022 14:23-0400 Diastolic blood emjoudhr73 mm[Hg]MD Douglas Juárez Work Phone: 1(246)862-[address] [place], [place] 6015708-29-2022 14:23-0400 Heart rate51 /minMD Hoy Work Phone: 1(266)785-[address] [place], [place] 6015708-29-2022 14:23-0400 Respiratory rate18 /minMD Douglas Masseyshannon Work Phone: 1(150)446-[address] [place], [place] 6015708-29-2022 14:23-0400 SaO2% (BldA) [Mass fraction]97 %MD Douglas Juárez Work Phone: 1(941)503-[address] [place], [place] 6015708-29-2022 14:23-0400 Systolic blood ndqjomqf880 mm[Hg]MD Douglas Juárez Work Phone: 1(370)331-[address] [place], [place] 6015708-03-2022 13:52-0400 Body wdlmxvpmtta63.01 [degF]Lab/[place] Work Phone: [facility]08-03-2022 13:52-0400Diastolic blood gsftodib58 mm[Hg]Lab/[place] Work Phone: [facility]08-03-2022 13:52-0400Heart rate65 /min Lab/[place] Work Phone: [place] [address]-03-2022 13:52-0400Respiratory rate 18 /minLab/[place] Work Phone: [facility]08-03-2022 13:52-0400Systolic blood iwdetugh072 mm[Hg]Lab/[place] Work Phone: [facility]07-14-2022 15:50-0400Body yoekxk559 cm Conrad Rojas MD Work Phone: [facility]07-14-2022 15:50-0400Body temperature 97.5 [degF]Conrad Rojas MD Work Phone: [facility]07-14-2022 15:50-0400Body ibqogb77.63 kgConrad Rojas MD Work Phone: [facility]07-14-2022 15:50-0400Diastolic blood xfucylgb56 mm[Hg]Conrad Rojas MD Work Phone: [facility]07-14-2022 15:50-0400Heart rate61 /min Conrad Rojas MD Work Phone: [facility]07-14-2022 15:50-0400Respiratory rate 18 /minConrad Rojas MD Work Phone: [facility]07-14-2022 15:50-3276ToL1% (BldA) [Mass fraction]97 %Conrad Rojas MD Work Phone: [facility]07-14-2022 15:50-0400Systolic blood qhqmhiaa014 mm[Hg]Conrad Rojas MD Work Phone: [facility]07-06-2022 14:40-0400Body hylcyx974.04 Kathy Butts Other [place] [employer] Other [id number] 14:40-0400Body mass index (BMI) [Ratio] 24.54 kg/m2Aziz Bakhous Other [employer] Other 07-06-2022 14:40-0400Body eeqeuqkvots07.9 [degF]Aziz Bakhous Other [place] [employer] Other 07-06-2022 14:40-0400Body zkgokq13.45 kgAziz Keshias Other [place] [employer] Other 07-06-2022 14:40-0400Diastolic blood zluzrbjp50 mm[Hg] Aziz Keshias Other [place] [employer] Other 07-06-2022 14:40-0400Respiratory rate18 /minAzmario Schmitts Other [place] [employer] Other 07-06-2022 14:40-7656RnR5% (BldA) [Mass fraction]98 % Aziz Keshias Other [place] [employer] Other 07-06-2022 14:40-0400Systolic blood pzocziah128 mm[Hg] Cristobal Schmitts Other [place] [employer] Other 04-26-2022 12:40-0400Body .04 cmAnorma Butts Other [employer] Other 04-26-2022 12:40-0400Body mass index (BMI) [Ratio] 24.93 kg/m2Aziz Josafathous Other [employer] Other 04-26-2022 12:40-0400Body sghltpmcusk82.3 [degF]Aziz Bakhous Other [employer] Other 04-26-2022 12:40-0400Body odbxfy41.9 kgAzmario Schmitts Other [employer] Other 04-26-2022 12:40-0400Diastolic blood ygzncqgf09 mm[Hg] Aziz Keshias Other [employer] Other 04-26-2022 12:40-0400Respiratory rate18 /minAzmario Keshias Other [employer] Other [id number] 12:40-9601CtJ9% (BldA) [Mass fraction]98 % Azmario Schmitts Other [place] [employer] Other 04-26-2022 12:40-0400Systolic blood ltdoccan135 mm[Hg] Aziz Keshias Other [employer] Other 03-15-2022 16:40-0400Body mazlka443.04 cmAyunielheather Butts Other [employer] Other 03-15-2022 16:40-0400Body mass index (BMI) [Ratio] 23.86 kg/m2Azmario Keshias Other [employer] Other [id number] 16:40-0400Body iehdzlxjfcp40.7 [degF]Azmario Keshias Other [employer] Other 03-15-2022 16:40-0400Body opylki18.91 kgAzmario Keshias Other [employer] Other 03-15-2022 16:40-0400Diastolic blood etdgzeyk78 mm[Hg] Cristobal Butts [facility] [employer] Other 03-15-2022 16:40-0400Respiratory rate18 /minCristobal Butts Other [facility] [employer] Other 03-15-2022 16:40-4504ZkZ4% (BldA) [Mass fraction]98 % Cristobal Butts Other [facility] [employer] Other 03-15-2022 16:40-0400Systolic blood srszgizu264 mm[Hg] Cristobal Butts Other [facility] [employer] Other Encounters Encounter DateEncounter TypeCare ProviderFacilityStart: 01-09-2025 End: 70-34-9119jedkgcfoimJSRITParkview Health Bryan Hospitaltart: 12-25-2024 End: 78-59-5689oqtbwaacbgJYCXUUMiddletown Hospital Start: 12-11-2024 End: 82-68-2986Rzlsfwv encounter procedureEddy Larsen DPM Work Phone: [facility] PodiatryComment on above:Onychomycosis (Primary Dx); Type II diabetes mellitus with neurological manifestations (HCC); Peripheral vascular disease, unspecified; Status post amputation of foot, right (HCC); Corns and callositiesStart: 12-11-2024 End: 50-97-6172esepyvrzskSLLYNJFWT H SMITHNot AvailableStart: 12-11-2024 End: 75-11-9534Xvksppshirlene ECHAVARRIAM Work Phone: [facility] PodiatryStart: 12-11-2024 End: 21-39-8279Gkkdotjuanita ECHAVARRIAM Work Phone: [facility] PodiatryStart: 11-30-2024 End: 85-86-9049apzozvaaggQHMQLSRCommunity Regional Medical Centertart: 11-14-2024 End: 38-40-2137tytsbuxcsjJJJVNHTCommunity Regional Medical Centertart: 11-14-2024 End: 50-54-6608wdwojstrffFHMOJEEAvita Health System Bucyrus Hospitaltart: 37-97-4124vffiwazrpoNALYKVAshtabula County Medical Centertart: 10-19-2024 End: 14-67-3696hzjzzfmhipHOFMZJBarberton Citizens Hospital Start: 10-09-2024 End: 61-48-6056Ahtenycjn encounterSteven A Rusher DPM Work Phone: noms PODIATRYComment on above:Advice Only (Keeping DM Shoes )Start: 10-04-2024 End: 54-01-2264bkmyfzisupYASEDWBarberton Citizens Hospital Start: 09-25-2024 End: 42-55-3146Nolatm flowsheetSteven A Rusher DPM Work Phone: noms PODIATRYStart: 09-25-2024 End: 66-20-4468Hnsyhd flowsheetSteven A Rusher DPM Work Phone: noms PODIATRYStart: 09-25-2024 End: 26-23-4035Qewnftf encounter procedureSteven A Rusher DPM Work Phone: noms PODIATRYComment on above: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); Peripheral vascular disease, unspecified; Status post amputation of foot, right (HCC)Start: 09-25-2024 End: 85-74-5914mrshccpopmZRGHKY A RUSHERNot AvailableStart: 09-06-2024 End: 65-61-4331jbvvnliwowMCIGFWELE H SMITHNot AvailableStart: 09-06-2024 End: 12-90-7303Lqiksyf encounter procedureCajason Larsen DPM Work Phone: [facility] PODIATRYComment on above:Status post amputation of foot, right (HCC) (Primary Dx); Type II diabetes mellitus with neurological manifestations (HCC); Onychomycosis; Corns and callositiesStart: 09-06-2024 End: 38-67-4770Byiiqr flowsSerina Larsen DPM Work Phone: n[facility] PODIATRYStart: 09-06-2024 End: 65-23-9064Dheysy Nando Larsen DPM Work Phone: noms [facility] PODIATRYStart: 08-30-2024 End: 60-55-9424iwfnsrsyyhFGWZM [facility] Centertart: 39-56-0634ggjjmixjibYTTNK [facility] Health Systemtart: 40-24-0283Fluevzjem for other preprocedural examinationJOSONIDO [facility] for Rehabilitationtart: 08-10-2024 End: 53-16-9517ffqvjfouesMnittkewuOhioHealth Rivers[facility] Work Phone: Start: 08-10-2024 End: 80-01-3617Plhetxk encounter procedureReplaced By [facility] Work Phone: Start: 08-02-2024 End: 94-48-2259Rsolai follow up visit related to original pxStcharis Corado DPM Work Phone: noms PODIATRYComment on above:Status post amputation of foot, right (CMS/HCC) (Primary Dx); 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/HCC); Peripheral vascular disease, unspecified (CMS/HCC)Start: 08-02-2024 End: 98-09-7119rnohemoldyZXNPEZ Shital CORADONot AvailableStart: 08-02-2024 End: 49-94-1802Mnxewb flowsheetSteven Shital Corado DPM Work Phone: noms PODIATRYStart: 08-02-2024 End: 92-74-5653Dzlhur flowsheetSteven A Rusher DPM Work Phone: noms PODIATRYStart: 07-18-2024 End: 04-35-8454Jmjbad flowsheetSteven A Rusher DPM Work Phone: noms PODIATRYStart: 07-18-2024 End: 52-64-8107Hocdac flowsheetSteven A Rusher DPM Work Phone: noms PODIATRYStart: 07-18-2024 End: 63-13-9631Ewitwn outpatient new 30 minutesSteven A Rusher DPM Work Phone: noms PODIATRYComment on above:Peripheral vascular disease, unspecified (CMS/HCC) (Primary Dx); Corns and callosities; 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/HCC); Status post amputation of foot, right (CMS/HCC)Start: 07-18-2024 End: 13-12-1401memirgmcwpCFPLTI A RUSHERNot AvailableStart: 06-21-2024 End: 96-11-8790oeehdwzzsnGQFBOF [facility] Start: 80-67-5998Mxj-patient / Non-visitFirelands Physician Group-[facility] Work Phone: Start: 06-06-2024 End: 42-09-5054lkbhvgazdvGDNQGATBU H SMITHNot AvailableStart: 03-28-2024 End: 42-39-8973dhhtvrqfpcZITGXETOR H SMITHNot AvailableStart: 03-28-2024 End: 64-86-6946Sgezzpn encounter procedureEddy Larsen DPM Work Phone: noms [facility] PODIATRYComment on above:Onychomycosis (Primary Dx); Corns and callosities; 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/HCC); Status post amputation of foot, right (CMS/HCC)Start: 03-28-2024 End: 64-41-0599Uprozashirlene Larsen DPM Work Phone: noms [facility] PODIATRYStart: 03-28-2024 End: 05-62-8891Vkqxlg Nando Larsen DPM Work Phone: noms [facility] PODIATRYStart: 12-15-2023 End: 66-84-4100Fuyecwg encounter procedureEddy Larsen DPM Work Phone: noms [facility] PODIATRYComment on above:Onychomycosis (Primary Dx); Corns and callosities; 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/HCC); Peripheral vascular disease, unspecified ([facility]/HCC)Start: 12-15-2023 End: 80-27-2557shfxxpqmnqMOHHZKZOU H SMITHNot AvailableStart: 12-15-2023 End: 39-76-4847Kzjgee Nando Larsen DPM Work Phone: noms [facility] PODIATRYStart: 12-15-2023 End: 35-67-6272Pwvjvz flowsSerina Larsen DPM Work Phone: noms [facility] PODIATRYStart: 09-16-2023 End: 70-50-2881uezuutesolQprnxgp R NILLFacility: kStart: 09-16-2023 End: 22-18-5893Qrpcmia encounter procedureMichael R NILL [phone]-QoeujUniversity [facility]als [facility] [place] Start: 75-50-9328vyggaopcvzXqzczwk NILLFacility: [place]walkStart: 28-93-8263uawlvgbxieEjngmaq NILLFacility: NatalyevueStart: 08-06-2022 End: 42-54-5361jqstcvenzmPzuzsys M HoyFacility:[facility] Start: 07-22-2022 End: 92-33-6394nrfhxxpubcUcmcmpcjv SmithFacility:[facility] Hospitaltart: 07-22-2022 End: 46-01-7204iostdotkfuAZ M Hoy Work Phone: [facility] Work Phone: Start: 07-22-2022 End: 92-38-8661Ebvogocz ReferredMD Hoy Work Phone: [facility] [address] [place] Work Phone: Start: 07-15-2022 End: 84-73-4061ryiwbxplthEfnvxft M HoyFacility:[facility] Start: 07-15-2022 End: 79-95-9513pbgdoqagzwBC M Hoy Work Phone: [facility] Work Phone: Start: 07-15-2022 End: 47-31-7051Hpiwwyoagf RecurringMD Hoy Work Phone: [facility] Work Phone: Start: 07-09-2022 End: 02-58-4233utwghyzfshWKNJCNZ TUCKERFacility:P2Opquy: 06-18-2022 End: 48-17-0680htsygkucirPhuvovs Blank Other [place] [employer] Other Start: 54-96-5590Pwswvgmut encounterMichael BlankFPG Infectious DiseaseStart: 06-11-2022 End: 24-88-9294Umkitzzpwy and management of inpatientObaydah M Daromar Facility:[facility]tart: 06-11-2022 End: 80-07-4782Wufhwvwcvd and management of inpatientMD Hoy Work Phone: [facility] [place] [facility] Work Phone: Start: 06-10-2022 End: 66-94-8813hholjjohikDvsvbnfld SmithFacility:[facility] Hospitaltart: 06-10-2022 End: 15-70-6903xtgaeattmrWL M Hoy Work Phone: [facility] Work Phone: Start: 06-10-2022 End: 30-63-4311Qrncrorn ReferredMD Hoy Work Phone: [facility] [address] [place] Work Phone: Start: 67-60-6590Ldsmhsvtr Benito Mirza RN Hematology/OncologyComment on above:Patient Update; AppointmentStart: 06-08-2022 Registered RecurringMD Hoy Work Phone: [facility] Work Phone: Start: 05-28-2022 End: 90-28-7409jlldiycygtTlfujl VargasFacility:[facility] Start: 05-28-2022 End: 12-80-4136Nlcepgndm to same day surgery centerMD Hoy Work Phone: [facility] [address] [place]Start: 05-28-2022 End: 54-61-3772grquqmvtrqHV M Hoy Work Phone: [facility] Work Phone: Start: 27-79-1904Hlaexgvklr RecurringMD Hoy Work Phone: [facility] Work Phone: Start: 05-25-2022 End: 33-14-4653ivrkcvjqenGuwuzpn Blank Other [employer] Other Start: 81-97-8329Zsylfgpau encounterMichaeadrian Jasmine Infectious DiseaseStart: 05-20-2022 End: 55-10-1043Rkqyynnpbj and management of inpatientKristpieroer Daleoom Facility:[facility]: 05-20-2022 End: 28-50-1272Cfbzksjdql and management of inpatientMD Hoy Work Phone: [facility] [place] [facility] Work Phone: Start: 05-19-2022 End: 22-54-7255vpzmiuctmwCpjqdws M HoshannonFacility:[facility] Start: 05-19-2022 End: 75-98-2594rrcdlkcuaiGQ Douglas Juárez Work Phone: [facility] Work Phone: Start: 05-19-2022 End: 24-52-2414Gysvxuja ReferredMD Douglas Juárez Work Phone: [facility] [place] Work Phone: Start: 05-05-2022 End: 51-69-6098Wpguzpvfcq and management of inpatientMD Douglas Juárez Work Phone: [facility] Work Phone: Start: 05-05-2022 End: 70-98-0886yystscttxgPLIVC D HIGHLANDERFacility:N3Picxd: 05-04-2022 End: 70-85-5543aeymlvqyihZYRJARTP CULLDAYTONFacility:A4Natvx: 04-29-2022 End: 09-64-7933svdbmjhlmcNPPO BAKHOUSPort [place] [employer] Other Start: 66-77-5444Defnfnvph encounterAzmario Chase NephrologyStart: 04-16-2022 End: 76-13-9316tckmyozpjwJiq/[place] Work Phone: Hematology/OncologyComment on above:Anemia due to stage 3b chronic kidney disease (HCC) (Primary Dx)Anemia due to stage 3b chronic kidney disease (HCC) (Primary Dx); Hypothyroidism, unspecified typeStart: 04-16-2022 End: 58-52-2774Yrpozns encounter Vianca Dotson APRN.CNP Work Phone: SANDUSKYStart: 03-24-2022 End: 02-83-0374osupqgtaiqHugp Bakhous Other [employer] Other Start: 92-17-2161Laotch outpatient visit 25 minutes Cristobal ButtsNARENLily NephrologyStart: 80-44-6358Yrdqfvfqm encounterCristobal ButtsNARENLily NephrologyStart: 03-18-2022 End: 08-01-3011bwtcxehcamRpq/[place] Work Phone: Hematology/OncologyComment on above:Anemia due to stage 3b chronic kidney disease (HCC) (Primary Dx)Start: 03-17-2022 End: 45-04-8319pusrzecevzBEJB BAKHOUSFacility:R6Ejmyr: 02-18-2022 End: 01-26-4857wuchnejxccLgq/[place] Work Phone: Hematology/OncologyComment on above:Anemia due to stage 3b chronic kidney disease (HCC) (Primary Dx)Start: 02-04-2022 End: 56-06-8855petvbyilyqJKPLM CLAYAMLOUFacility:[facility]tart: 02-04-2022 End: 55-66-2909cpofosoxbaEjr/[place] Work Phone: Hematology/OncologyComment on above:Anemia due to stage 3b chronic kidney disease (HCC) (Primary Dx)Start: 01-14-2022 End: 26-40-9044tawvupxquyOYEDE MARTINEZFacility:[facility]tart: 01-14-2022 End: 22-53-6415vvpvptweocNxwbp Martinez [employer] Work Phone: Hematology/OncologyComment on above:Anemia due to stage 3b chronic kidney disease (HCC) (Primary Dx); Hypothyroidism, unspecified typeStart: 01-14-2022 End: 01-33-7809Ehkkkww encounter procedureMonik Dotson APRN.[employer]DER [employer]IPPER Work Phone: SANDUSKYStart: 12-30-2021 End: 76-36-8436srzxxmpicaYiadfom Ditty Other [place] [employer] Other Start: 72-04-2114DYSU visit new patientFord Sam EMANUEL GastroenterologyStart: 12-17-2021 End: 07-37-7451dayjaxrkabTDBKH ABHYRADHAARFacility:[facility]tart: 12-17-2021 End: 68-80-7546bmlltjkbvvCkzoj Abhyankar MD Work Phone: Hematology/OncologyComment on above:Anemia due to stage 4 chronic kidney disease (HCC) (Primary Dx)Start: 12-17-2021 End: 94-07-0360Yoaxcdt encounter procedureConrad Rojas MD Work Phone: SANDUSKYStart: 12-09-2021 End: 63-55-0850abmvunawbnYeiu Bakhous Other [place] [employer] Other Start: 90-28-5973Xwctur outpatient visit 25 minutes Cristobal JiangG NephrologyStart: 12-04-2021 End: 08-42-9593ofkfusfylkQO DOCTOR MISCFacility:O4Agaql: 27-35-9959Kiplawdpv encounterMonik Dotson APRN.CNP Work Phone: Hematology/OncologyComment on above:InfusionsStart: 12-03-2021 End: 67-54-9961asoudjfmlmVibvu Martinez APRN.CNP Work Phone: Hematology/OncologyComment on above:Anemia due to stage 4 chronic kidney disease (HCC) (Primary Dx)Start: 12-03-2021 End: 89-85-8000Nbuuwah encounter Vianca Dotson APRN.CNP Work Phone: SANDUSKYStart: 11-19-2021 End: 26-11-0096krmavbrekqVdh/[place] Work Phone: Hematology/OncologyComment on above:Anemia due to stage 3b chronic kidney disease (HCC) (Primary Dx)Start: 11-17-2021 End: 30-28-9937Uxpfqgtbld RecurringMD Douglas Juárez Work Phone: [facility] - [facility] Start: 11-05-2021 End: 08-95-7492xuikrqseevYFRAA ABHYANKARFacility:[facility]tart: 10-22-2021 End: 26-20-8134yjjblwghleEPPIR ABHYANKARFacility:[facility]tart: 10-22-2021 End: 42-67-7092fnxklvlofcFki/[place] Work Phone: Hematology/OncologyComment on above:Anemia due to stage 3b chronic kidney disease (HCC) (Primary Dx)Start: 10-16-2021 End: 53-94-1281vszlemsrwzNQOOD ABHYANKARFacility:[facility]tart: 10-16-2021 End: 18-44-7910xskzvsmdazIrzcfJada Rojas MD Work Phone: Hematology/OncologyComment on above:Anemia due to stage 3b chronic kidney disease (HCC) (Primary Dx)Start: 10-16-2021 End: 07-93-4724Pgnnrzqyitav consultation with Andi Rojas MD Work Phone: SANDUSKYStart: 10-02-2021 End: 75-04-2122dttwtjuoxcAuhyb Abhyankar MD Work Phone: Hematology/OncologyComment on above:Stage 3b chronic kidney disease (HCC) (Primary Dx); Anemia due to stage 3b chronic kidney disease (HCC); Elevated serum immunoglobulin free light chainsStart: 10-02-2021 End: 63-56-7504Osmsspo encounter procedureConrad Rojas MD Work Phone: SANDUSKYStart: 88-94-0177Iulvd abstractingConrad Rojas MD Work Phone: Hematology/OncologyStart: 09-30-2021 End: 08-09-6762cexfvlwsufHX MARQUITA .Facility:A7Rdmbr: 09-24-2021 End: 94-64-1531dvitiusgnbMnpr Bakhous Other [employer] Other Start: 21-82-7619Ghwcwh outpatient visit 25 minutes Aziz BakhousFPG NephrologyStart: 09-19-2021 End: 44-34-1407sruhjiuoesPY DOCTOR MISCFacility:K2Yuvjy: 07-15-2021 End: 76-02-9170svakvbjjroHyao Bakhous Other [facility]Zip[facility] Other Start: 01-53-7028Omhmcl outpatient visit 25 minutes Aziz BakhousFPG NephrologyStart: 06-03-2021 End: 10-13-2189baxagbjkasMilr Bakhous Other [facility] [employer] Other Start: 71-47-0783Bknmiz outpatient visit 25 minutes Aziz BakhousFPG Nephrology Procedures DateProcedureProcedure DetailPerforming ClinicianStart: 10-24-0702Bouujcuj screenCassandra SmithComment on above:Result Comment: PERFORMED BY: [facility] [place] [address] PATHOLOGIST EMERGENCY PHYSICIAN SESAR VAUGHN M.D.Start: 34-00-9820Yeipyiwmb for occult blood in fecesMD Hoy Work Phone: [phone]: 39-13-4544PK of abdomen and pelvis without contrastMD Hoy Work Phone: [phone]-art: 07-51-9149QN of chest without contrastMD Hoy Work Phone: [phone]-art: 55-94-1978Shksdylw screenCassandra SmithComment on above:Order Comment: Transfuse now? Y Number of units to transfuse now? 1 Transfuse now? Y Number of units to transfuse now? 1Result Comment: PERFORMED BY: [facility] [address] [place] [address] PATHOLOGIST EMERGENCY PHYSICIAN SESAR VAUGHN M.D.Start: 56-72-7961J-ray of right footMD Douglas Juárez Work Phone: [phone]-art: 54-33-3763Yvchf chest X-rayMD Douglas Juárez Work Phone: Start: 19-24-4966Xjmxk culture for bacteria, including anaerobic screenMD Douglas Juárez Work Phone: [phone]-art: 48-69-6001QHUW-CoV-2, Influenza & RSV (PCR)MD Douglas Juárez Work Phone: [phone]-art: 28-96-4182Valndsz microbial cultureMD Douglas Juárez Work Phone: [phone]-art: 18-08-0762Wfchfdexiouc insertion of peritoneal dialysis catheterMD Douglas Juárez Work Phone: [phone]-art: 22-29-8840Ksohgheoz of peripherally inserted central catheterMD Douglas Juárez Work Phone: [phone]-art: 02-00-6742Gmxpzsfilz of toeMD Douglas Juárez Work Phone: Start: 37-74-5578Sjvazoe microbial cultureMD Douglas Juárez Work Phone: [phone]-art: 67-64-4935Jcvhkbjge microbial cultureMD Douglas Juárez Work Phone: Start: 86-19-0095Hjggrtxxpnxdc of transfusion reaction MD Douglas Juárez Work Phone: [phone]-art: 90-09-2364Zgkijtaz screenCassandra SmithComment on above:Order Comment: Transfuse now? Y Number of units to transfuse now? 1 Result Comment: PERFORMED BY: [address] [address] PATHOLOGIST EMERGENCY PHYSICIAN SESAR VAUGHN M.D.Start: 56-05-4170OES of right footMD Douglas Juárez Work Phone: Start: 28-08-4106Pthmk culture for bacteria, including anaerobic screenMD Douglas Juárez Work Phone: [phone]-art: 82-86-0746VQ of chest without contrastMD Douglas Juárez Work Phone: Start: 05-20-2022 End: 45-97-6117W-ray of right footMD Douglas Juárez Work Phone: Start: 29-41-2708Mwmoyxh microbial cultureMD Hoshannon Work Phone: Start: 00-33-6569Vgcfrjm microbial cultureMD Douglas Juárez Work Phone: [phone]-art: 90-52-1548Bjjzcblke microbial cultureMD Douglas Juárez Work Phone: Start: 43-33-1450Gfndcieeyofuu of transfusion reaction MD Douglas Juárez Work Phone: [phone]-art: 50-95-3783Ykbawiyoau of toeMD Douglas Juárez Work Phone: [phone]-art: 97-40-0072Egrsa volume recorder pneumoplethysmographyMD Douglas Juárez Work Phone: [phone]-art: 01-66-8701MLN of right footMD Douglas Juárez Work Phone: [phone]-art: 16-88-1044Fbdmm culture for bacteria, including anaerobic screenMD Douglas Juárez Work Phone: [phone]-art: 37-03-0431W-ray of right footMD Douglas Juárez Work Phone: Start: 13-26-1470Ocrih depression screening assessment Monik Dotson APRN.[employer] Work Phone: Start: 73-85-9425YrqhgodldmxYqidpkxfa Smith DPM Work Phone: start: 98-13-3524FymnelakwbjOhnfffw NILL Amputation of toeMichael NILL Comment on above:4th and 5th digits right footH/O: surgeryRecent surgical procedure on lower extremityMD Douglas Juárez Work Phone: Comment on above:Problem List clean-up per request of Phys. EHR CmteInsertion of peritoneal dialysis catheterMichael NILL Plan of Treatment DateCare ActivityDetailAuthorStart: 55-90-8852Gnxtenjts for malignant neoplasm of colonNOMS HealthcareStart: 29-49-3954QMWMCJML SCREENDIABETES SCREENGarden Grove ClinicStart: 03-19-2025 End: 50-99-1669Qrhwlwf encounter wpaosrlzf53/29/2025 3:15 PM EST Procedure Visit [facility] [address] [place] [address] Eddy Larsen DPM [address] [place] [address] [facility] PodiatryStart: 03-18-2025 DIABETES SCREENDIABETES SCREENGarden Grove ClinicStart: 67-67-2789FDGEJHFS SCREEN DIABETES SCREENGarden Grove ClinicStart: 01-81-1288VGIQKHUN SCREENDIABETES SCREEN [facility] ClinicStart: 50-32-4831XUVSDECZ SCREENDIABETES SCREENSelect [facility] Start: 42-37-9935MFJSPHJB SCREENDIABETES SCREENSelect Medical Specialty [facility] Northveland ClinicStart: 12-11-2024 End: 87-15-4444Qzgshmg encounter procedureNOMS SWS PODIATRYComment on above: ArrivedStart: 28-10-6313HUVJAFJF SCREENDIABETES SCREENCleveland ClinicStart: 97-26-4825Ezjmfpvom vaccinationNOMS HealthcareStart: 93-04-2868LABOHSBH SCREEN DIABETES SCREENGarden Grove ClinicStart: 10-26-4239QXXMDLFN SCREENDIABETES SCREEN [facility] ClinicStart: 10-16-2024 End: 45-14-5638Benwgxv encounter umskdkmsi79/28/2025 2:45 PM EDT Office Visit [facility] [address] [place] [address] Leann Corado DPM [address] [place] [address] [facility]ODI[facility]RYStart: 23-59-4301AMHWVRQF SCREENDIABETES SCREENGarden Grove ClinicStart: 09-25-2024 End: 50-14-1935Zseseve encounter yntofrdzu41/07/2025 1:15 PM EDT Office Visit [facility] [address] [place] [address] Leann Corado, HARRY [address] [place] [address] ArrivedNOMS PODIATRYComment on above:ArrivedStart: 09-18-2024 End: 20-89-4843Xundgwr encounter djfznxieg80/30/2025 4:00 PM EDT Office Visit [facility] [address] [place] [address] Leann Corado, HARRY [address] [place] [address] [facility] PODIATRYStart: 09-06-2024 End: 04-89-3713Awjjwrl encounter tjiaiiusy00/18/2025 2:30 PM EDT Procedure Visit [facility] [address] [place] [address] Eddy Larsen DPM [address] [place] [address] [facility] PODIATRYStart: 58-54-2472Rgjggoc referral [facility] Work Phone: Start: 08-02-2024 End: 79-52-5826Ukjiksq encounter vgpolazuq17/14/2025 3:15 PM EDT Office Visit [facility] [address] [place] [address] Leann Corado, ITALIAM [address] [place] [address] ArrivedNOSSM HEALTH CARE PODIATRYComment on above:ArrivedStart: 07-18-2024 End: 25-34-3393Rnjgnny encounter nicwjvnpb73/29/2025 1:45 PM EDT Office Visit [facility] [address] [place] [phone] Leann Corado, DPM [address] [place] [address] Corns and callosities; 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/HCC); Status post amputation of foot, right (CMS/HCC)[facility]OMPERR[facility] PODIATRYComment on above:Corns and callosities; 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/HCC); Status post amputation of foot, right (CMS/HCC)Start: 06-06-2024 End: 64-01-3557Pjcrdpb encounter asunsljfd99/18/2025 3:15 PM EDT Procedure Visit [facility] [address] [place] [address] Eddy Larsen, DPM [address] [place] [address] [facility]ODIATRYStart: 03-28-2024 End: 07-83-3200Eklhsex encounter cileluwmw70/07/2025 2:15 PM EST Procedure Visit [facility] [address] [place] [address] Eddy Larsen, DPM [address] [place] [address] [facility] PODIATRYStart: 12-15-2023 End: 77-61-6817Zgenqbf encounter ouoqntvxr19/25/2024 3:45 PM EDT [facility] [address] [place] [address] Eddy Larsen, DPM [address] [place] [address] ArrivedNOMS [facility] PODIATRYComment on above:ArrivedStart: 54-99-1328Nqbvhxwbl vaccinationInfluenza Vaccine (#1)NOMS HealthcareStart: 15-64-7857VFNLTABLAI/HEMATOCRITHEMOGLOBIN/HEMATOCRITGarden Grove ClinicStart: 82-88-1338ZESEY CREATININESERUM CREATININEUK Healthcaretart: 03-18-2023 HEMOGLOBIN/HEMATOCRITHEMOGLOBIN/HEMATOCRITGarden Grove ClinicStart: 58-79-3231MNCFX CREATININESERUM CREATININEGarden Grove ClinicStart: 02-18-2023 HEMOGLOBIN/HEMATOCRITHEMOGLOBIN/HEMATOCRITUK Healthcaretart: 28-58-3446AFKRA CREATININESERUM CREATININEUK Healthcaretart: 02-04-2023 HEMOGLOBIN/HEMATOCRITHEMOGLOBIN/HEMATOCRITGarden Grove ClinicStart: 92-34-5110XDZSF CREATININESERUM CREATININEUK Healthcaretart: 01-14-2023 HEMOGLOBIN/HEMATOCRITHEMOGLOBIN/HEMATOCRITGarden Grove ClinicStart: 55-05-2358WHFUB CREATININESERUM CREATININEGarden Grove ClinicStart: 12-17-2022 HEMOGLOBIN/HEMATOCRITHEMOGLOBIN/HEMATOCRITUK Healthcaretart: 80-86-5319OWNGL CREATININESERUM CREATININEUK Healthcaretart: 18-16-4618Jowva depression screening assessmentDEPRESSION SCREENINGUK Healthcaretart: 12-03-2022 HEMOGLOBIN/HEMATOCRITHEMOGLOBIN/HEMATOCRITUK Healthcaretart: 26-21-7919YEDCP CREATININESERUM CREATININEUK Healthcaretart: 11-19-2022 HEMOGLOBIN/HEMATOCRITHEMOGLOBIN/HEMATOCRITUK Healthcaretart: 35-49-3986EBBJZ CREATININESERUM CREATININEGarden Grove ClinicStart: 10-22-2022 HEMOGLOBIN/HEMATOCRITHEMOGLOBIN/HEMATOCRITGarden Grove ClinicStart: 28-40-5201OQVEF CREATININESERUM CREATININEGarden Grove ClinicStart: 10-02-2022 HEMOGLOBIN/HEMATOCRITHEMOGLOBIN/HEMATOCRITGarden Grove ClinicStart: 19-21-2630BLBMA CREATININESERUM CREATININEUK Healthcaretart: 11-62-2397Jjngecjqsjq Wound CultureSuperficial Wound CultureMercy Health Clermont Hospitaltart: 07-96-1871EdhdhvypqMercy Health Clermont Hospitaltart: 15-83-3132IdconjwjkMercy Health Clermont Hospitaltart: 37-13-9846Qqwtojahmxdfsp of prophylactic treatmentUk Healthcare CenterStart: 17-15-1701Erdvfdgw to podiatristUk Healthcare CenterStart: 16-95-5927Romevlwaadztv metabolic 2000 panel - Serum or PlasmaUk Healthcare CenterStart: 28-49-6973Imtnhwknkjj sedimentation rate by Photometric methodUk Healthcare CenterStart: 50-33-9485XotshjvshUk Healthcare CenterStart: 79-94-4039Orydwbni admission [facility] CenterStart: 25-85-8052Mzppyzbo to infectious diseases physicianUk Healthcare CenterStart: 40-81-6487Rygaaqtk to nephrologistUk Healthcare CenterStart: 71-70-6692RenkxufrpUk Healthcare CenterStart: 41-25-2102Fnqhvyvt identified in Blood by CultureUk Healthcare CenterStart: 11-67-4680Icaolvm microbial cultureSuperficial Wound CultureUk Healthcare CenterStart: 54-00-5428Xlmgcfisqhh Wound CultureSuperficial Wound CultureUk Healthcare CenterStart: 05-28-2022 End: 12-72-8881SeqqvsxyqUk Healthcare CenterStart: 73-89-0158Dluxb function 1999 panel - Serum or PlasmaUk Healthcare CenterStart: 05-25-2022 [facility] CenterStart: 38-91-8668Lzlzc function 1999 panel - Serum or PlasmaUk Healthcare CenterStart: 82-38-2005RmnltonnqUk Healthcare CenterStart: 78-40-4051Crazz function 1999 panel - Serum or PlasmaUk Healthcare CenterStart: 24-74-2708FnqzyqmttUk Healthcare CenterStart: 92-68-0031Zlphyvpwmqoklg of prophylactic treatmentUk Healthcare CenterStart: 42-91-8554Ahxuunxl to Social ServicesUk Healthcare CenterStart: 49-31-1850Vvkzl function 1999 panel - Serum or [facility] CenterStart: 75-15-9947Sgngqcdjdy [Mass/volume] in Serum or PlasmaUk Healthcare CenterStart: 05-22-2022 End: 78-30-5602CzhskniviMercy Health Clermont Hospitaltart: 67-35-3015Cogryvgbd microbial cultureAnaerobic CultureMercy Health Clermont Hospitaltart: 32-69-0753Lojgu function 2000 panel - Serum or PlasmaMercy Health Clermont Hospitaltart: 05-21-2022 End: 27-41-5845KtcrlpgitMercy Health Clermont Hospitaltart: 05-20-2022 End: 92-13-4502SbwnowyrdMercy Health Clermont Hospitaltart: 98-05-7354Fkprphyf identified in Blood by CultureBlood CultureNorwalk Memorial Hospital Start: 98-71-3650Fvzuexizck at Right 4th Toe, Complete, Open ApproachDetachment at Right 4th Toe, Complete, Open ApproachMercy Health Clermont Hospitaltart: 79-86-1679Kpcbltbf of Right Foot, Open ApproachDrainage of Right Foot, Open ApproachMercy Health Clermont Hospitaltart: 27-82-3112Camicaid of Right Foot Subcutaneous Tissue and Fascia, Open ApproachExcision of Right Foot Subcutaneous Tissue and Fascia, Open ApproachNorwalk Memorial Hospital Start: 09-92-3317Xjxnzyuhi of Infusion Device into Superior Vena Cava, Percutaneous ApproachInsertion of Infusion Device into Superior Vena Cava, Percutaneous ApproachMercy Health Clermont Hospitaltart: 05-20-2022 Superficial Wound CultureSuperficial Wound CultureMercy Health Clermont Hospitaltart: 45-13-8279Bpdvbdax to infectious diseases physicianMercy Health Clermont Hospitaltart: 91-04-6921Dstccgnr to nephrologistMercy Health Clermont Hospitaltart: 11-59-5907Ttghnvic to podiatristMercy Health Clermont Hospitaltart: 94-84-6846Ysmwvzok admissionMercy Health Clermont Hospitaltart: 29-02-6719Kredrsx microbial cultureSuperficial Wound Culture [facility] Hospitaltart: 90-50-8429Oqpdcbrgrhn Wound Culture Superficial Wound CultureMercy Health Clermont Hospitaltart: 05-08-2022 [facility]tart: 14-65-1402Jrpeydk microbial culture Aerobic CultureMercy Health Clermont Hospitaltart: 15-39-4156Gqlqggyto microbial cultureAnaerobic CultureMercy Health Clermont Hospitaltart: 05-07-2022 End: 43-09-1673NhrdmwjmgMercy Health Clermont Hospitaltart: 76-47-9767Edvetoym to general surgeonMercy Health Clermont Hospitaltart: 80-00-1504Esnefwiw to nephrologistMercy Health Clermont Hospitaltart: 27-86-0736Xktkrusg to infectious diseases physicianMercy Health Clermont Hospitaltart: 05-05-2022 Referral to podiatristMercy Health Clermont Hospitaltart: 80-93-3797Yhgappdv admissionMercy Health Clermont Hospitaltart: 54-34-0685TcdbuyawxMercy Health Clermont Hospitaltart: 37-19-0195Cehevzeu identified in Blood by CultureMercy Health Clermont Hospitaltart: 29-08-9704Loegf culture for bacteria, including anaerobic screenBlood CultureMercy Health Clermont Hospitaltart: 05-05-2022 Detachment at Right Foot, Partial 5th Ray, Open ApproachDetachment at Right Foot, Partial 5th Ray, Open ApproachMercy Health Clermont Hospitaltart: 31-09-9777QLQCVMQBSQ ASSESSMENTDEPRESSION ASSESSMENTUK Healthcaretart: 02-20-2022 End: 88-97-6633UZP W Auto Differential panel - BloodCBC + DIFF Lab Routine Anemia due to stage 3b chronic kidney disease (HCC) Hypothyroidism, unspecified type Expected: 02/20/2022, Expires: 04/22/2022[facility] Work Phone: Comment on above:Expected: 02/20/2022, Expires: 04/22/2022Start: 02-20-2022 End: 31-37-4139Hvkzwarbetkzc metabolic 2000 panel - Serum or PlasmaCOMP METABOLIC PANEL Lab Routine Anemia due to stage 3b chronic kidney disease (HCC) Hypothyroidism, unspecified type Expected: 02/20/2022, Expires: 04/22/2022 [facility] Work Phone: Comment on above:Expected: 02/20/2022, Expires: 04/22/2022Start: 52-07-9507Avklwqqye vaccinationINFLUENZA (#1)[facility] Start: 24-80-1623YPIBA-19 VACCINE (4 - Booster for Pfizer series)COVID-19 VACCINE (4 - Booster for Pfizer series)[facility]: 97-21-6322WTDDG-19 VACCINE (4 - Booster for Pfizer series)COVID-19 VACCINE (4 - Booster for Pfizer series)[facility]: 92-62-8160NAODHTFLXU ASSESSMENTDEPRESSION ASSESSMENTUK Healthcaretart: 25-84-0812DJBCPJKI CANCER SCREENING DISCUSSION PROSTATE CANCER SCREENING DISCUSSIONUK Healthcaretart: 12-11-9511PPYHBBES VACCINE (1 of 2)SHINGRIX VACCINE (1 of 2)[facility]: 2009 COLOGUARD (FIT-DNA)COLOGUARD (FIT-DNA)[facility]: 2009 ColonoscopyCOLONOSCOPYUK Healthcaretart: 77-05-8139OBKIQIJFKE CANCER SCREENINGCOLORECTAL CANCER SCREENINGUK Healthcaretart: 16-19-2309LC COLONOGRAPHYCT COLONOGRAPHYUK Healthcaretart: 95-13-7083DPSLUUXG SCREEN DIABETES SCREENUK Healthcaretart: 33-58-5599SSNEU OCCULT BLOODFECAL OCCULT BLOODUK Healthcaretart: 28-66-3703PUHZYXEKQDQUFUEWPTALWWTRYZSqfjnqmge Clinic Start: 11-96-0184RUQLD SCREENLIPID SCREENUK Healthcaretart: 41-77-3251Nzmfr microalbumin profileDTAP,TDAP,TD (1 - Tdap)[facility]: 1982 ANNUAL PCP TEAM CHRONIC DISEASE VISITANNUAL PCP TEAM CHRONIC DISEASE VISIT [facility]: 93-66-1697ICNKYTKTJ C SCREENINGHEPATITIS C SCREENING [facility]: 63-56-6639KHM SCREENINGHIV SCREENINGC[facility] Clinic [facility] Start: 29-34-7018Aaerk depression screening assessmentDEPRESSION SCREENING [facility]: 67-48-0286WXZGQTXUL B (1 of 3 - 3-dose series)HEPATITIS B (1 of 3 - 3-dose series)[facility]: 71-47-9943Xvuyzvkpp for malignant neoplasm of colonNOMS HealthcareC reactive protein [Mass/volume] in Serum or PlasmaNorwalk Memorial Hospital End: 06-76-6006ZPL W Auto Differential panel - BloodCBC + DIFF Lab Routine Stage 3b chronic kidney disease (HCC) Anemia due to stage 3b chronic kidney disease (HCC) Elevated serum immunoglobulin free light chains Every other week for 10 Occurrences starting 10/08/2021 until 10/08/2022[facility] Work Phone: Comment on above:Every other week for 10 Occurrences starting 10/08/2021 until 10/08/2022 End: [id number] metabolic 2000 panel - Serum or PlasmaCOMP METABOLIC PANEL Lab Routine Stage 3b chronic kidney disease (HCC) Anemia due to stage 3b chronic kidney disease (HCC) Elevated serum immunoglobulin free light chains Every other week for 10 Occurrences starting 10/08/2021 until 10/08/2022 [facility] Work Phone: Comment on above:Every other week for 10 Occurrences starting 10/08/2021 until 10/08/[facility] Work Phone: [facility] Immunizations Immunization DateImmunizationNotesCare [id number] virus vaccine, unspecified formulationEddy Larsen DPM Work Phone: [id number] original vaccine, age 12+ yr, monovalent (PFIZER-BIONTECH - PURPLE TOP)Conrad Rojas MD Work Phone: [facility] RehabilitationCxuobg50-43-1777VURME-17 vaccine, age 12+ yr (PFIZER-BIONTECH - RINCON TOP)Conrad Rojas MD Work Phone: [facility] RehabilitationMaqdox72-90-0890HNEK-KkV-7 mRNA (tsjwlnlxfju-agdc-rrzoouz) vaccineMichael NILL [phone]-Dezuh General Surgery BellevueComment on above: Result Comment: 2023-09-09: [id number]-34 vaccine, age 12+ yr ([place]- BIONTECH - PURPLE TOP)Conrad Rojas MD Work Phone: [facility] RehabilitationQyznqj52-76-9680EYEPW-93 vaccine, age 12+ yr (PFIZER-BIONTECH - PURPLE TOP)Conrad Rojas MD Work Phone: [facility] Payers DatePayer CategoryPayerPolicy [id number]-[id number] [id number] [id number] 2023Medicare [id number] [id number] 2021 MedicaidWHIPPANY MEDICAID WHIPPANY ADVANTAGE MEDICAID [id number] [address] [address] [address] [place] [address] [id number] 2021Medicaid [id number] 2.0.1.374325.3.57[id number] 2.0.1.731657.3.57[id number] 2.0.1.052981.3.579.2.26173-71-7540Zbnnpbh4371135 2.0.1.341993.3.57[id number] 2.0.1.831917.3.57[id number] 2.16840.1.855881.3.57[id number] 2.840.1.541684.3.579.2.84894-24-7370Amfqipd6003055 2.16840.1.210487.3.57[id number] 2.840.1.062207.3.579.[id number] 2.840.1.336680.3.579.[id number] 2.840.1.689669.3.579.2.7[id number] 2.840.1.580698.3.57[id number] 2.840.1.229993.3.579.[id number] 2.0.1.595460.3.579.2.586802-69-1095Fgsfgey0800614 2.840.1.711445.3.57[id number] 2.0.1.172592.3.579.2.325586-65-1022Rtsergl7609554 2.840.1.294523.3.579.[id number] 2.840.1.806500.3.579.2.9[id number] 2.840.1.591560.19 [id number] [id number] 2.840.1.8[id number] 2.16.840.1.730217.3.579.2.531 [id number] 2.16.840.1.2[id number] 2.16.840.1.879628.3.579.2.672Epbjoxl14238438 2.16.840.1.222805.3.579.2.531 [id number] 2.16.840.1.860765.3.579.2.155Kjaclnq96887246 2.16.840.1.150[id number] 2.840.1.031263.3.579.2.531 Social History DateTypeDetailFacilityUnknown if ever smokedNohannibal regional hospital Manufacturers' Inventory Other Start: 12-15-2023 End: 73-61-2221Ksl [facility]: 10-01-2021 End: 51-36-7499Oxbtikm smoking status NHISNever smoked tobaccoCleveland Clinic Children'S Hospital For [facility] Start: 10-01-2021 End: 59-40-4315Mmdzhth use and exposureSmokeless tobacco non-userUK Healthcaretart: 10-01-2021 End: 81-84-5118Mkdggox intakeEx-drinker (finding)[facility]: 78-70-0801Lqg Assigned At BirthNot on fileUK Healthcaretart: 09-22-2021 End: 81-05-1017Vspqicwn to SARS-CoV-2 (event)Not sureUK Healthcaretart: 93-85-0122Ywx [facility]igned At [facility] HospitalHistory of tobacco usePassive smokerUK Healthcaretart: 05-05-2022 End: 81-09-2312Oydhemd smoking status NHISEx-smoker (finding)[facility] HospitalTobacco smoking statusNeverFishUC [facility] Hospitaltart: 12-15-2023 End: 96-38-4479Pcjzgpbao beverage intakeNot AskedNOMS HealthcareStart: 12-15-2023 End: 28-17-0081Bdbihut of Social functionNOMS HealthcareStart: 35-29-5623Vbmtdui Commentcaffeine intake:1-2 cups per day soda/popNOMS HealthcareStart: 19-23-5823NonUpoc (finding)[facility] Medical Equipment Procedure CodeEquipment CodeEquipment Original TextEquipment IdentifierDates Insertion, catheter, dialysis, peritoneal, laparoscopicPeritoneal dialysis catheter, [id number] FDAStart: 05-28-2022 Goals DatePatient GoalDesired Activity/State Functional Status RckuRjqctraerfDgskwxFeoclock34-74-9890Rxnomwwtxl StatusN/AFMer[facility]03-27-2023Functional statusPatient at [facility] Work Phone: [phone]zup statusPatient at [facility] Work Phone: [phone]zdsoqc statusPatient at [facility] Work Phone: [phone]pbnqppa statusPatient at [facility] Work Phone: [phone] statusPatient at [facility] Work Phone: [phone] statusPatient at [facility] Work Phone: Mental Status MskxWehpqhlsdtMjjkipLrcamqea02-92-7564Nqbuifogp functionCognitive Status [facility] Work Phone: [phone]ubyvbu functionCognitive Status [facility] Work Phone: [phone] functionCognitive Status [facility] Work Phone: [phone]tz functionCognitive Status [facility] Work Phone: [phone] functionCognitive Status [facility] Work Phone: [phone]ehemo functionCognitive Status Patient at [facility] Work Phone: Clinical Notes 06-03-2021 to 01-12-2025 Note Date & KtlvUnbvWnkexdtd39-71-5807 Lisandra called the pt and tod him that I had Dr Cordova review your CT with contrast 01/09/25 that was recently completed. I told him that it was concerned that it was renal cell carcinoma. I said it was not clearly diagnosed but worrisome. I told the pt that I spoke with Dr Cordova about your case. The plan is to move forward with your cardiac surgery and rehab and then after a few months, depending in how you are feeling, to then have you see [facility] to evaluate you and discuss a plan. I said that Dr Cordova stated that a nephrectomy would likely be appropriate but there is nothing to do now. Dr Cordova said the priority is to take care of your heart and we will go from there. I said there has been no diagnosis of RCC yet. I said that dr Cordova and our transplant surgeons work with pts regularly to resolve this. I said that I wanted to let you know. I also said that I talked to the CT surgery team, Jerome Pena so they know what Dr Cordova's recommendation is. I tod him that I know he has a lot on his plate but your heart is the priority. The pt verbalized understanding. I told him to call with any questions as I had quite a bit of information.[facility]10-23-2025 NoteDmarisol Cordova sent a return message and stopped by my office. Dr Cordova said to take of the cardiac first and then after a few months if he is doing well then have him come to the urology clinic. At that time he can be evaluated and start to plan when he would be ready to pursue nephrectomy and transplant. This is yes to be discussed with the pt, I sent a secure chat to Jerome Pena from CT surgery and she was also on the email from Dr Cordova.[facility] 01-11-[address] w IV contrast on 01/09/[address] for follow up of CT w/o contrast 08/30/24. Suspicious right renal lesion. Pt did not want MRI due to being in the tube ; Dr Cash said do CT with contrast. The CT from 01/09/25 findings were worrisome for renal cell carcinoma. The pt us also seeing CT surgery due to severe [address] surgery was trying to determine what was the status of the pt right kidney and determine the correct pt cardiac treatment. I sent an e mail to Dr Cash, Dr Cordova and Dr Stevens and Jerome Pena CT surgery [employer] on this matter 01/11/25. I am waiting on a response from the transplant surgeons on the course of action for this pt.[facility]10-23-2025 NoteOn 01/11/2025 this TC was alerted by radiology staff that patient had a finding on CT abdomen pelvis w IV contrast on 01/09/2025. This is a pre transplant patient. TC contacted pt's pre business coordinator who stated pt also has significant cardiac concerns. Pre coordinator stated they will be sending email to transplant surgeons alerting them of this CT and the cardiac concerns so prioritization in plan of care can be determined.[facility]10-21-2025 NoteCT ABDOMEN PELVIS W IV CONTRAST 01/09/2025 12:45 [...] the radiology department Electronically signed: Bee Fuentes. [facility] Cash explaining pt not wanting MRI due to going in tube . I asked Dr Cash if CT abd triphasic appropriate for both services, CT surgery and TX. Dr Cash responded that CT abd/pel with contrast should be sufficient. I then called pt and explained why we need CT abd and that this is different than MRI and there is no tube to go through. Pt agreed to compete CT abd. I told him I saw that he had an apt with CT surg 01/09/25 at 2 pm and I would call radiology to set up the apt. Pt verbalized understanding. I called radiology and verified order and was able to schedule on 01/09/25. I notified CT surgery via secure chat that was in progress regarding this plan. [facility]10-06-2025 NoteUT Cardiology - [facility] Subjective Gopal Yates is a 59 y.o. year old male patient being seen to discuss CABG. Patient states he is here today to talk about CABG patient would like to have surgery after the first of the year, patients states he doesn't want to deal with this over the holidays. Patient denies chest pain, leg swelling, ELDRIDGE, SOB, fatigue, palpitations/racing heart, bleeding/bruising/discoloration. Per the patient surgeon told the patient you were the deciding factor as to whether the surgery could wait or not, patient states its an elective surgery. Patient Active Problem List Diagnosis Edema of lower extremity Hypertensive disorder Left ventricular systolic dysfunction Mitral valve regurgitation Pericardial effusion Coronary artery disease involving win[place] coronary artery of winneb[place] heart without angina pectoris CKD (chronic kidney disease) Anemia Anemia due to stage 3b chronic kidney disease (CMS/HCC) Abscess of right foot MARTHA (acute kidney injury) Fever History of fever Metabolic acidosis Osteomyelitis (CMS/HCC) Diabetes mellitus with diabetic neuropathy (CMS/HCC) Anxiety Chronic fatigue syndrome Diabetic neuropathy (CMS/HCC) Diastolic dysfunction End-stage renal disease (CMS/HCC) Erectile dysfunction Chronic GERD History of HI (myocardial infarction) History of osteomyelitis Hypercholesterolemia Hyperparathyroidism Hypothyroidism Iron deficiency anemia Multiple nodules of lung Occult blood in stools Peritoneal dialysis status Vitamin D deficiency Type 2 diabetes mellitus (CMS/HCC) Diabetic foot ulcers (CMS/HCC) Chronic foot ulcer (CMS/HCC) Heart valve disease CHF (congestive heart failure) (CMS/HCC) Myocardial infarction (CMS/HCC) History of pleural effusion Panic attack Swelling of both lower extremities PVD (peripheral vascular disease) Proteinuria Secondary hyperparathyroidism of renal origin Chronic sinusitis History of tobacco use Abnormal cardiovascular stress test Acute combined systolic and diastolic heart failure (CMS/HCC) Anorexia Contact with and (suspected) exposure to other viral communicable diseases Edema Cough Dyspnea Influenza Insulin dependent diabetes mellitus type IA (CMS/HCC) Male erectile disorder (CODE) Nausea and vomiting Nocturia Palpitations Pleural effusion Problem behavior Shoulder joint pain Viral gastroenteritis Family History Problem Relation Name Age of Onset Alzheimer's disease Mother Hypertension Mother Breast cancer Mother Coronary artery disease Father Hypertension Father Diabetes Father Stroke Father COPD Father Hyperlipidemia Father Coronary artery disease Paternal Grandmother Social History Tobacco Use Smoking status: Former Current packs/day: 0.00 Average packs/day: 1 pack/day for 12.0 years (12.0 ttl pk-yrs) Types: Cigarettes Start date: 1982 Quit date: 1994 Years since quittin.7 Smokeless tobacco: Never Vaping Use Vaping status: Never Used Substance Use Topics Alcohol use: Not Currently Drug use: Never HPI Gopal is seen in follow-up. He is a 59-year-old man with prior history of coronary artery [...] In May 2022 he was admitted to [facility] for osteomyelitis and had toe amputations. In August 2023 he was evaluated in cardiology clinic and because of low LDL levels of his ezetimibe was stopped. At visit of 12/22/2023 and due to low LDL I reduced pravastatin to 20 mg daily. I last saw him in the office in June 2024. Due to being considered for possible renal transplant we then checked a stress test that showed evidence of ischemia. I proceeded with cardiac catheterization on 10/19/2024 that showed severe disease in the LAD and RCA. The disease is very heavily calcified. He was recommended bypass surgery. He was evaluated by cardiothoracic surgery and plans are to proceed with coronary artery bypass surgery. Today he is seen in follow-up. He reports that he has been doing well. he denies chest pain, shortness of breath, palpitations, dizziness, syncope and leg edema. he has good exercise tolerance. There is no claudication. His main issue is that he would like to defer the surgery for another 3 months until after the holidays and he is wondering if that would be okay. Review of Systems Constitutional: Negative. All other systems reviewed and are negative. Objective Visit Vitals BP 132/78 (BP Location: Left arm, Patient Position: Sitting) Pulse 55 Ht 1.93 m (6' 4 ) Wt 94.3 kg (208 lb) SpO2 98% BMI 25.32 kg/m??? (more content not included)...[facility]10-03-2025 NoteI called the pt today and told him I was following up on an MRI of the kidneys we discussed in early October 2024. I explained that the last time we talked you had just completed a cardiac cath and you found out you needed to follow up with CT surgery. At that time we discussed that the MRI needed for transplant was to characterize a kidney lesion that was on your CT that may be a cyst or possibly neoplasm/cancer and this was necessary for transplant. At the time you stated that you did not want to complete an MRI right now as you are more concerned about your cardiac status. I explained to the pt that CT surgery wanted to know what was going with the renal lesion follow up. I explained the purpose of the MRI to characterize the kidney lesion as possible cyst or neoplasm of some kind. The pt said right now he does not want to complete MRI. I did tell him that cardiac intervention does not mean you can never receive a kidney transplant. There would be a 6 month wait time to be re evaluated after cardiac intervention. I stated that if CT surgery would need the MRI as part of their work up, then it would have to be completed. The pt said if that is the case OK but for now I am not interested in completing MRI kidneys for transplant. I summarized our conversation and clarified you do not want an MRI for transplant purposes at this time, if it is necessary for CT surgery then you will complete the test . The pt said correct, no MRI at this time for transplant. I told him I would stay in touch. . [facility]09-22-2025 History of Present illness Narrative* Eddy Larsen DPM - 12/11/2024 3:15 PM EDT Images from the original note [...] surroundings, in no acute distress. Foot Exam: 12/11/24 Vascular: DORSALIS PEDIS PULSE:1/4. POSTERIOR TIBIAL PULSE:1/4. [...] from the underlying nail bed with evidence ofingrown to the lateral proximal nail fold SKIN [...] or Silipos padding/toe spacers to prevent rubbing andcontinued development of the hyperkeratosis. 3. Also discussed use of moisturizing creams for overall increased hydration to the skin. 4. Discussed continued use of proper foot gear to avoid excess pressure over the callous site. documented in this encounterSelect Specialty HospitalCmvowzfxlx46-62-1491 NoteCardiothoracic Surgery Outpatient Consultation Note 11/01/2024 Reason For [...] Diagnosis Plan 1. Coronary artery disease involving winnebago coronary artery of winnebago heart without angina pectoris 2. Type 2 diabetes mellitus with diabetic neuropathy, without long-term current use of insulin ([facility]) 3. End-stage renal disease ([facility]) 4. Multiple nodules of lung Plan : -Patient seen and evaluated by Cardiothoracic Team. Dr. Otis Subramanian personally examined the patient and reviewed The Cardiac Catherization, Echocardiogram, CXR, and Other Diagnostic Testing. Findings discussed with director of estate and patient. Explained current disease process and [...] disease (CKD), Anxiety, CHF (congestive heart failure) ([facility]), Chronic fatigue syndrome, Chronic sinusitis, Coronary artery disease, Diabetic foot ulcers ([facility]), Diabetic neuropathy ([facility]), ED (erectile dysfunction), ESRD (end stage renal disease) ([facility]) (06/17/2022), GERD (gastroesophageal reflux disease), Heart valve disease, History of pleural effusion, History of tobacco use, Hyperlipidemia, Hypertension, Hypothyroidism, Myocardial infarction ([facility]/HCC), Osteomyelitis ([facility]), Panic attack, Pericardial effusion, Proteinuria, Pulmonary nodules, PVD (peripheral vascular disease), Secondary hyperparathyroidism of renal origin, Swelling of both lower extremities, Type 2 diabetes mellitus ([facility]), and Vitamin D deficiency. Surgical History He has a past surgical history that includes Cardiac catheterization (Right, 05/20/2021); Cardiac catheterization (02/07/2020); Toe amputation (05/07/2022); Peritoneal catheter insertion (05/28/2022); Wound debridement (Right, 09/04/2022); Abscess drainage (Left, 10/07/2022); and Colonoscopy (2017). Family History Family History[1] Social History He [...] distension. Palpations: Abdomen i (more content not included)...[facility]08-12-2025 NoteThis report has been cancelled.[facility]08-01-2025 NoteI called the pt and discussed his work [...] move forward with transplant. The pt verbalized understanding.[facility]2025 NotePatient: Gopal Yates Procedure Information Date/Time: 10/19/24 1230 Procedures: Coronary angiography - Renal TX - Does PD dialysis Right heart cath Location: [facility] / [facility] (Cath) Providers: Casimiro Sosa MD Clinical information reviewed: Allergies Meds Physical Exam Airway Mallampati: III Cardiovascular Rhythm: regular Rate: normal Dental Pulmonary Breath sounds clear to auscultation Neurological Abdominal Anesthesia Plan ASA 3 other (Moderate Sedation) Anesthetic plan and risks discussed with patient. Use of blood products discussed with patient who consented to blood products. Additional Equipment RequestsUnLima Memorial Hospital07-21-2025 Telephone encounter Note* Telephone Encounter - Zahira Vargas - 10/09/2024 2:44 PM EDT Pt likes his DM shoes and is keeping them. [facility] Specialty [id number] Miscellaneous Notes* Telephone Encounter - Zahira Vargas - 10/09/2024 2:44 PM EDT Pt likes his DM shoes and is keeping them. documented in this encounterSelect Specialty HospitalGbtcczfeps99-65-9995 NoteSpoke with patient he verbalized understanding and confirmed date/time of procedure. He will have lab work done 10/16/24 at [facility]. All questions were answered. Written instructions and lab orders mailed to patient.[facility]07-07-2025 History of Present illness Narrative* Leann Corado DPM - 09/25/2024 1:15 PM EDT Images from the original note were not included. Subjective Patient ID: Gopal Yates Jr. is a 59 y.o. 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 Patient received [address] Friedman [...] maintain current ADLs and physical activities; reducing riskprofile. Fitting of Dr. Friedman therapeutic footwear and [...] acclimating process; emphasis on daily inspection for anysign of skin irritation, blister formation, perceived areas [...] understanding. Leann Corado DPM documented in this encounterSelect Specialty HospitalJkggkqvftg78-85-0341 NoteReceived referral for patient to have an evaluation for possible transplant. Patient is an established patient with Dr. Sosa who was seen 06/21/24, at that time physician mentioned a stress would be needed. Patient scheduled for testing, pending results a follow up appointment will be made.[facility]06-18-2025 History of Present illness Narrative* Eddy Larsen DPM - 09/06/2024 2:30 PM EDT Images from the original note [...] from the underlying nail bed with evidence ofingrown to the lateral proximal nail fold SKIN [...] or Silipos padding/toe spacers to prevent rubbing andcontinued development of the hyperkeratosis. 3. Also discussed use of moisturizing creams for overall increased hydration to the skin. 4. Discussed continued use of proper foot gear to avoid excess pressure over the callous site. documented in this encounterSelect Specialty HospitalAguemxxjra96-86-0803 NotePatient Infection Risk NOTE: All vaccines should ideally be given [...] condom during sex Leland Rangel MD Infectious diseasesUnLima Memorial Hospital06-11-2025 NoteI saw the patient in the clinic. They [...] information and patient financial responsibility forms they signedAdena Health System06-11-2025 NotePre-Transplant Evaluation Nephrology Consult Chief Complaint Patient presents with Kidney Eval PCP: Douglas Juárez MD Txp Referring: Cristobal Butts Preferred Pharmacy: [address] [facility] [id number] Organ: Kidney Subjective Visit Vitals BP 161/85 [...] Dose Status aspirin 81 mg EC tablet [id number] Yes Take 1 tablet every day by oral route. Historical ProviderMD Active calcium carbonate (Tums) 200 mg calcium (500 mg) chewable tablet [id number] Yes Chew 1 tablet three times daily. Historical ProviderMD Active carvedilol (Coreg) 25 mg tablet [id number] Yes TAKE 1 AND 1/2 TABLETS BY MOUTH TWICE A DAY Casimiro Sosa MD Active Patient not taking: Discontinued 08/30/24 0803 Discontinued 08/30/24 0803 guaiFENesin (Mucinex) 600 mg 12 hr tablet [id number] Yes Take 1,200 mg by mouth 1 (one) time each day. Do not crush, chew, or split. Historical ProviderMD Active hydrALAZINE (Apresoline) 50 mg tablet [id number] Yes TAKE 1 TABLET (50 MG) BY MOUTH IN THE MORNING, AFTERNOON, AND AT BEDTIME. Paola Zhang CNP Active hydrOXYzine HCL (Atarax) 25 mg tablet [id number] Yes Take 25 mg by mouth 1 (one) time. Historical ProviderMD Active insulin aspart (NovoLOG) 100 unit/mL (3 mL) pen [id number] Yes INJECT PER SCALEIF SUGAR IS <140 = 4U, 140-200 = 8U, OVER 200 12U (35 DAY SUPPLY) Historical ProviderMD Active insulin glargine (Lantus) 100 unit/mL (3 mL) pen [id number] Yes INJECT 16 UNITS SUB Q DAILY (83 DAY SUPPLY) Historical MD Oscar Active isosorbide dinitrate (Isordil) 10 mg tablet [id number] Yes TAKE 1 TABLET (10 MG) BY MOUTH IN THE MORNING, AT NOON, AND AT BEDTIME. Casimiro Sosa MD Active levothyroxine (Synthroid, Levoxyl) 100 mcg tablet [id number] Yes Take 1 tablet by mouth in the morning. Historical ProviderMD Active liothyronine (Cytomel) 5 mcg tablet [id number] Yes Take 2 tablets by mouth in the morning. Historical ProviderMD Active magnesium oxide (Mag-Ox) 400 mg (241.3 mg magnesium) tablet [id number] Yes Take 1 tablet by mouth in the morning. Historical ProviderMD Active montelukast (Singulair) 10 mg tablet [id number] Yes Take 1 tablet by mouth in the morning. Historical ProviderMD Active Nephro-Jose 0.8 mg tablet [id number] Yes Take 1 tablet by mouth in the morning. Historical ProviderMD Active NIFEdipine XL (Procardia XL) 30 mg 24 hr tablet [id number] Yes Take 1 tablet by mouth in the morning. Historical ProviderMD Active omeprazole (PriLOSEC) [address] capsule [id number] Yes Take 1 capsule by mouth in the morning and at bedtime. Historical ProviderMD Active potassium chloride CR (Klor-Con M20) 20 mEq ER tablet [id number] Yes Take 20 mEq by mouth in the morning. Historical ProviderMD Active pravastatin (Pravachol) 20 mg tablet [id number] Yes Take 1 tablet (20 mg) by mouth in the morning. Casimiro Sosa MD Active sevelamer carbonate (Renvela) 800 mg tablet [id number] Yes TAKE ONE TABLET BY MOUTH THREE TIMES A DAY WITH MEALS Historical ProviderMD Active Immunization History Administered Date(s) Administered Pfizer SARS-CoV-2 Vaccination 07/08/2020, 07/29/2020, 06/11/2021, 06/11/2021 Unspecified Sars-Cov-2 Vaccination 07/08/2020, 07/29/2020 Patient Active Problem List Diagnosis Edema of lower extremity Hypertensive disorder Left ventricular systolic dysfunction Mitral valve regurgitation Pericardial effusion Coronary artery disease involving winnebago coronary artery of winnebago heart without angina pectoris CKD (chronic kidney disease) Anemia Anemia due to stage 3b chronic kidney disease (CMS/HCC) Abscess of right foot MARTHA (acute kidney injury) Fever History of fever Metabolic acidosis Osteomyelitis (CMS/HCC) Diabetes mellitus with diabetic neuropathy (CMS/HCC) Anxiety Chronic fatigue syndrome Diabetic neuropathy (CMS/HCC) Diastolic dysfunction End-stage renal disease (CMS/HCC) Erectile dysfunction Chronic GERD History of HI (myocardial infarction) History of osteomyelitis Hypercholesterolemia Hyperparathyroidism Hypothyroidism Iron deficiency anemia Multiple nodules of lung Occult blood in stools Peritoneal dialysis status Vitamin D deficiency Type 2 diabetes mellitus (CMS/HCC) Diabetic foot ulcers (CMS/HCC) Chronic foot ulcer (CMS/HCC) Heart valve disease CHF (congestive heart failure) (CMS/HCC) Myocardial infarction (CMS/HCC) History of pleural effusion Bran (more content not included)...[facility]06-11[facility]20[facility] NoteTransplant Nutrition Assessment Name: Gopal Yates : 1965 Assessment date: 08/30/2024 PMH: Anemia, Anxiety, CHF, CAD, DFU, ED, ESRD , GERD, HLD, HTN, hypothyroid, HI, PVD, hyperparathyroid, DM, vitamin D deficiency Dialysis [...] doctor and ENT. Will be seeing an orchestrator. Context: Denies weight changes. No food allergies [...] diet guidelines discussed with patient. Chari Coleman RDAdena [facility]06-11-2025 NotePre- Transplant Kidney Evaluation Surgery Consultation PCP: Douglas Juárez MD Txp Referring: Cristobal Butts [facility] Pharmacy: [address] [address] Organ: Kidney Subjective Visit Vitals BP 161/85 [...] Dose Status aspirin 81 mg EC tablet [id number] Yes Take 1 tablet every day by oral route. Historical Provider, Active calcium carbonate (Tums) 200 mg calcium (500 mg) chewable tablet [id number] Yes Chew 1 tablet three times daily. Historical Provider, Active carvedilol (Coreg) 25 mg tablet [id number] Yes TAKE 1 AND 1/2 TABLETS BY MOUTH TWICE A DAY Casimiro Sosa MD Active Patient not taking: Discontinued 08/30/24 0803 Discontinued 08/30/24 0803 guaiFENesin (Mucinex) 600 mg 12 hr tablet [id number] Yes Take 1,200 mg by mouth 1 (one) time each day. Do not crush, chew, or split. Georgie Moore MD Active hydrALAZINE (Apresoline) 50 mg tablet [id number] Yes TAKE 1 TABLET (50 MG) BY MOUTH IN THE MORNING, AFTERNOON, AND AT BEDTIME. Paola Zhang CNP Active hydrOXYzine HCL (Atarax) 25 mg tablet [id number] Yes Take 25 mg by mouth 1 (one) time. Georgie Moore MD Active insulin aspart (NovoLOG) 100 unit/mL (3 mL) pen [id number] Yes INJECT PER SCALEIF SUGAR IS <140 = 4U, 140-200 = 8U, OVER 200 12U (35 DAY SUPPLY) Georgie Moore MD Active insulin glargine (Lantus) 100 unit/mL (3 mL) pen [id number] Yes INJECT 16 UNITS SUB Q DAILY (83 DAY SUPPLY) Georgie Moore MD Active isosorbide dinitrate (Isordil) 10 mg tablet [id number] Yes TAKE 1 TABLET (10 MG) BY MOUTH IN THE MORNING, AT NOON, AND AT BEDTIME. Casimiro Sosa MD Active levothyroxine (Synthroid, Levoxyl) 100 mcg tablet [id number] Yes Take 1 tablet by mouth in the morning. Georgie Moore MD Active liothyronine (Cytomel) 5 mcg tablet [id number] Yes Take 2 tablets by mouth in the morning. Georgie Moore MD Active magnesium oxide (Mag-Ox) 400 mg (241.3 mg magnesium) tablet [id number] Yes Take 1 tablet by mouth in the morning. Georgie Moore MD Active montelukast (Singulair) 10 mg tablet [id number] Yes Take 1 tablet by mouth in the morning. Georgie Moore MD Active Nephro-Jose 0.8 mg tablet [id number] Yes Take 1 tablet by mouth in the morning. Georgie Moore MD Active NIFEdipine XL (Procardia XL) 30 mg 24 hr tablet [id number] Yes Take 1 tablet by mouth in the morning. Georgie Moore MD Active omeprazole (PriLOSEC) [address] capsule [id number] Yes Take 1 capsule by mouth in the morning and at bedtime. Georgie Moore MD Active potassium chloride CR (Klor-Con M20) 20 mEq ER tablet [id number] Yes Take 20 mEq by mouth in the morning. Historical Provider, Active pravastatin (Pravachol) 20 mg tablet [id number] Yes Take 1 tablet (20 mg) by mouth in the morning. Casimiro Sosa MD Active sevelamer carbonate (Renvela) 800 mg tablet [id number] Yes TAKE ONE TABLET BY MOUTH THREE TIMES A DAY WITH MEALS Historical Provider, Active Immunization History Administered Date(s) Administered Pfizer SARS-CoV-2 Vaccination 07/08/2020, 07/29/2020, 06/11/2021, 06/11/2021 Unspecified Sars-Cov-2 Vaccination 07/08/2020, 07/29/2020 Diagnoses: 1. Type 2 diabetes mellitus with ESRD (end-stage renal disease) (CMS/HCC) 2. Encounter for other preprocedural examination 3. End stage renal disease (CMS/[facility]) 4. 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 not on chronic dialysis, with long-term current use of insulin ([facility]) Problems: Problem List[2] Family History[3] Social History[4] Medical History[5] Surgical History[6] Dialysis History Start End Type Center Comments 06/17/2022 Peritoneal [facility] [employer] [facility]. everyday Dialysis Center Information [facility] [employer] [facility]. Address: [address] [place] [address] [address] [place] [id number] Travel Screening No screening recorded since 08/29/24 0000 Travel History Travel since 07/30/24 No documented travel since 07/30/24 HPI The patient is a 59 year old male with ESRD likely secondary to Type 2 diabetes mellitus and cardiorenal syndrome. He began dialysis on 06/17/2022 and currently dialyzes at home daily using peritoneal dialysis and following with [facility] [place]. He denies any issues with clotting or infection of his dialysis access. His PD catheter is in the right middle quadrant. His geometry teacher is Dr. Hernandes (more content not included)...[facility]06-11[facility]20[facility] NoteIdentifying Information Name: Gopal Yates : 1965 Assessment date: 08/30/2024 Transplant type: Kidney Transplant Evaluation - 08/30/2024 Primary language: Serbian Denominational/spirituality: Rastafarian People present at assessment: spouse Eneida Do you have any jewish, ethical or personal objections to accepting blood products, surgery and/or transplant? No Citizenship Where were you born? In the [place] in [facility] Where do you currently live or are staying? [place] Is this greater than 3-4 hours from [facility]? No. Family Background and Supportive Relationships Mother: COD: Alzheimer Father: COD: heart issues, he was in the hospital. Siblings: none Children: Biological Number of children, living or (UNOS question): 2 Names, age, health status, relationship, address: Adrian, 29, daughter, healthy, [place] with us. Charlene, 27, daughter, colitis and Chron's, [facility], [place]- about an hour from patient. Marital/relationship status: for 31 years Household composition: Patient, , and daughter Adrian. Are there any current or past significant life changes or traumatic events? None Support / Caregiver Plans Who will be your primary caregiver? 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 Who will be your secondary caregiver(s)? 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 yes Are you receiving assistance through [facility] Program: No Medication Coverage [...] 06/17/2022 Peritoneal [facility] [employer] everyday Dialysis Center Information [facility] [employer]. Address: [address] [place] [address], [address] [facility] [address] Dialysis Schedule: PD, 10.5, yellow, green and purple. Treatment Compliance / Adherence How do you manage your medications now? Memory and Other from the bottle. Do you have any difficulties in getting or taking your medications (more content not included)...[facility]-11[facility]2025 NoteCoordinator met with patient for initial transplant evaluation appointment in Transplant clinic today. Explained transplant process and consents with patient. Answered patient questions. Social work, finance and umbrella tipper machine in to see patient. Dr. Stevens in for H&P and transplant plan. Dr. Rodrigues in for surgical evaluation. Coordinator provided copy of plan to patient and reviewed it with them. Patient aware further testing needed and to keep transplant team updated. Understanding verbalized by patient. Chief Electrician provided verbal order for patient labs, EKG, CXR and CT scan today. Work-up Needed-Date of Eval Letter to be Mailed to patient and faxed to Chief Electrician/ Dialysis Center. Gear Grinding Machine Operator provided patient TE folder with education on various transplant consents, the workup process, surgery details, postop expectations, transplant statistics, and living donor information. Answered patient questions and verified understanding.[facility]05-22-2025 Hospital Discharge instructionsAmbulatory Orders* Referral to ENT Time Frame: 08/10/24, Location: None Selected [facility] Work Phone: 1(437) 954-927605-14-2025 History of Present illness Narrative* Leann Corado DPM - 08/02/2024 3:15 PM EDT Images from the original note [...] maintain current ADLs and physical activities; reducing riskprofile. Foam impressions obtained; simulated weight-bearing for custom molded accommodative orthoses and appropriate forefoot filler on the right. Measurements obtained in the weight-bearing position utilizing VGBio device. Patient education and counseling relative to [...] understanding. Leann Corado DPM documented in this encounterSelect Specialty [id number] History of Present illness Narrative* Leann Corado DPM - 07/18/2024 1:45 PM EDT Images from the original note were not included. Subjective Patient ID: Gopal Yates Jr. is a 58 y.o. male who presents for DM Foot Care (PCP: Dr. Marquita JAVIER 07/2023, NV: 5/01/25, A1C: 6.9, BS: doesn't check,SS: 12). HPI [...] understanding. Leann Corado DPM documented in this encounterSelect Specialty [id number] NoteUT Cardiology - [facility] Subjective Gopal Yates is a 58 [...] regurgitation Pericardial effusion Coronary artery disease involving winnebago coronary artery of winnebago heart without angina pectoris CKD (chronic kidney disease) Anemia Anemia due to stage 3b chronic kidney disease (CMS/HCC) Abscess of right foot MARTHA (acute kidney injury) Fever History of fever Metabolic acidosis Osteomyelitis (CMS/HCC) Other acute postprocedural pain Receiving intravenous antibiotic treatment at home Recent surgical procedure on lower extremity Subjective fever Surgical wound present Diabetes mellitus with diabetic neuropathy (CMS/HCC) Anxiety Chronic fatigue syndrome Diabetic neuropathy (CMS/HCC) Diastolic dysfunction End-stage renal disease (CMS/HCC) Erectile dysfunction Chronic GERD History of HI (myocardial infarction) History of osteomyelitis Hypercholesterolemia Hyperparathyroidism Hypothyroidism Iron deficiency anemia Multiple nodules of lung Occult blood in stools Peritoneal dialysis status Vitamin D deficiency Diabetes (CMS/HCC) Type 2 diabetes mellitus with foot ulcer (CODE) ([facility]/HCC) Chronic foot ulcer (CMS/HCC) Family History Problem Relation Name Age of Onset Alzheimer's disease Mother Coronary artery disease Father Coronary artery disease Paternal Grandmother Social History Tobacco Use Smoking status: Former Types: Cigarettes Smokeless tobacco: Never Substance Use Topics Alcohol use: Not Currently Drug use: Never MARGARITA Gopal is seen in follow-up. He is [...] In May 2022 he was [facility] for osteomyelitis and had toe amputations. In [...] BEDTIME. (Patient michaela (more content not included)... [facility]01-07[facility] History of Present illness Narrative* Eddy Larsen DPM - 03/28/2024 2:15 PM EST Images from the original note [...] from the underlying nail bed with evidence ofingrown to the lateral proximal nail fold SKIN [...] or Silipos padding/toe spacers to prevent rubbing andcontinued development of the hyperkeratosis. 3. Also discussed use of moisturizing creams for overall increased hydration to the skin. 4. Discussed continued use of proper foot gear to avoid excess pressure over the callous site. documented in this encounterSelect Specialty [id number] History of Present illness Narrative* Eddy Larsen DPM - 12/15/2023 3:45 PM EDT Images from the original note [...] from the underlying nail bed with evidence ofingrown to the lateral proximal nail fold SKIN [...] or Silipos padding/toe spacers to prevent rubbing andcontinued development of the hyperkeratosis. 3. Also discussed use of moisturizing creams for overall increased hydration to the skin. 4. Discussed continued use of proper foot gear to avoid excess pressure over the callous site. documented in this encounterSelect Specialty [id number] NoteGeneral Surgery Office/Clinic Note Chief Complaint consultation for anemia HPI Staff 58 year old male presents on consultation from Dr. Juárez for positive occult stool and anemia. Labs completed 09/07 with HGB 8.4, HCT 25.1. Iron studies not completed. Patient verbalized anemia was diagnosed approximately 2 years ago. Had a workup at that time with nothing found. Patient on peritonealdialysis. Nephrology gives him a monthly injection for [...] yo male with h/o htn, CAD, previous HI, hyperlipidemia, DMII, ESRD, on peritoneal dialysis, hypothyroidism, diabetic neuropathy, referred for anemia and positive fecal occult blood; last colonoscopy 2018 with removal of sigmoid hyperplastic polyp; abd operations significant for insertion of peritoneal dialysis catheter; patient on baby asa daily; patient has had several year h/o anemia, managed by his Chief Electrician; had [place] [facility], no upper endoscopy; denies change in bms or abd complaints; GERD controlled with Omeprazole; no dysphagia or early satiety, no wt loss; no N/V. no tobaccouse; no fmhx of GI malignancy or IBD. Review of Systems PHQ Score Initial Depression Screen Score: 0 SCORE ROS - Provider Constitutional: no fever, no sweats, no weight loss. Eyes: yes glasses, no blurred vision, no visual loss. ENMT: no dentures, no hoarseness, no swallowing difficulties, no hearing loss, no ear infection(s),no nose bleeds. Cardiovascular: normal blood pressure, no [...] test positive Gastroesophageal reflux disease History of HI (myocardial infarction) History of osteomyelitis Hypercholesterolemia Hyperlipidemia Hyperparathyroidism Hypothyroidism Iron deficiency anemia Left ventricular systolic dysfunction Mitral valve regurgitation Multiple nodules of lung Peritoneal dialysis status Positive occult stool blood test Vitamin D de (more content not included)...[facility]view Medical CenterComment on above:Result Comment: Electronically Signed By: ML BATISTA, Ashutosh Love\Date and Time Signed: 09/16/23 16:05 [id number] History and physical note Author Caleb Farrar [facility] June 11, 2022 7:41pmNote Date/TimeMar2022 6:58pm[place]ab[place] [address] Hospitalist H&P Signed Patient: Gopal Yates Jr MR#: [id number] : 1965 Acct:[id number] Age/Sex: 56 / M Adm Date: 3 Loc: ER [facility] Attending Dr: Copies to: MD [...] with his assistance. Has been following with cemetery worker Dr. Griggs, took culture few days ago which seems negative to date. Also patient has had PD catheter insertedby General surgery on 05/28/22 with no immediate [...] % (Auto) 3.2 % (.) 06/11/22 16:06 [place] % (Auto) 7.2 % (.) 06/11/22 16:06 Eos % (Auto) 2.0 % (.) 06/11/22 16:06 Baso % (Auto) 0.5 % (.) 06/11/22 16:06 Nucleat RBC Rel Count 0.0 /100 WBC (0-0.5) 06/11/22 16:06 Neut # (Auto) 8.9 x10E3/uL (1.8-7.7) H 06/11/22 16:06 Lymph # (Auto) 0.3 x10E3/uL (1.00-4.8) L 06/11/22 16:06 [place] # (Auto) 0.7 x10E3/uL (0.0-0.8) 06/11/22 16:06 [...] pH 5.5 (5.0-9.0) 06/11/22 16:28 Ur Specific [place] 1.014 (1.001-1.030) 06/11/22 16:28 Urine Protein 300 [...] <Electronically signed by Caleb Farrar MD> 06/11/221940 [facility] Work Phone: 1(525) 752-660203-20-2023 Miscellaneous Notes* Telephone Encounter - Liset Mosley [...] cancelled. Krissy Mirza RN documented in this encounterCleveland Clinic [facility]03[facility] Progress note Author Yvonne Barboza [facility] May 25, 2022 11:28amNote Date/TimeMar2022 10:36am[place]ab[place] [address] Nephrology Progress Note Signed Patient: Gopal Yates Jr MR#: [id number] : 1965 Acct:[id number] Age/Sex: 56 / M Adm Date: 3 Loc: Room: [address] [place] [address] Type: ADM IN Attending Dr: Scotty Kahn DO Copies to: ~ Date of Service: 05/25/2022 Subjective Subjective Narrative: This is 56-year-old male patient with a past medical history of chronic kidney disease stage V fromdiabetic and hypertensive nephropathy follows with me in renal office. Coronary artery disease withhistory of myocardial infarction, heart failure with reduced ejection fraction, hyperlipidemia, insulin-dependent diabetes mellitus and hypothyroidism. Patient was referred to the hospital by his podiatric physician for worsening right lateral foot ulcer. Patient had recent partial fifth ray amputation of his right foot. Patient was discharged to finish antibiotics. Foot MRI from yesterday showededema in the head of the second metatarsal as well as the proximal and middle phalanx of the fourth digitsuspicious for osteomyelitis. Edema is also noted at the fourth transmetatarsaljunction suspicious for osteomyelitis. There is also marrow edema affecting thehead of the third metatarsal as wellas the proximal phalanx of the third digit [...] following with hematology clinic here in [facility] for CAROL injection. Patient missedher last appointment. Hemoglobin this morning 7.7 g [...] that he likely will be discharged home today.He is scheduled to see Dr. 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, 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 Musculoskeletal: No joint [...] 2 Mg Tablet) 2 mg PO DAILY [facility] Stop: 05/21/23 08:59 Last Admin: 05/25/22 08:30 Dose: 2 mg Carvedilol (Carvedilol 12.5 Mg Tablet) 37.5 mg PO BID.WITH.MEALS [facility] Stop: 05/20/23 16:59 Last Admin: 05/25/22 08:30 Dose: 37.5 mg Cyproheptadine HCl (Cyproheptadine 4 Mg Tablet) 4 mg PO BID [facility] Stop: 05/23/23 20:59 Last Admin: 05/25/22 08:30 Dose: 4 mg Ezetimibe (Ezetimibe 10 Mg Tablet) 10 mg PO DAILY [facility] Stop: 05/21/23 08:59 Last Admin: 05/25/22 08:30 Dose: 10 mg Hydralazine HCl (Hydralazine 50 Mg Tablet) 50 mg PO TID [facility] Stop: 05/20/23 13:59 Last Admin: 05/25/22 08:30 Dose: 50 mg Piperacillin Sod/Tazobactam Sod (Zosyn 2.25gm) 2.25 gm in 100 mls @ 200 mls/hr IV Q6H [facility] Last Admin: 05/25/22 05:05 Dose: 200 mls/hr Insulin Glargine (Insulin Glargine 300 Units/3 Ml Insuln.Pen) 16 units SUBCUT QAM [facility] Stop: 05/21/23 08:59 Last Admin: 05/25/22 08:31 Dose: 16 units Isosorbide Dinitrate (Isosorbide Dinitrate 10 Mg Tablet) 10 mg PO TID [facility] Stop: 05/20/23 13:59 Last Admin: 05/25/22 08:30 Dose: 10 mg Levothyroxine Sodium (Levothyroxine 100 Mcg Tablet) 100 mcg PO DAILY@0630 [facility] Stop: 05/21/23 06:29 Last Admin: 05/25/22 05:34 Dose: Not Given Liothyronine Sodium (Liothyronine 5 Mcg Tablet) 10 mcg PO DAILY [facility] Stop: 05/21/23 08:59 Last Admin: 05/25/22 08:31 Dose: 10 mcg Multivitamins (Multivitamin 1 Tab Tablet) 1 tab PO DAILY [facility] Stop: 05/21/23 08:59 Last Admin: 05/25/22 08:31 [...] 40 Mg Tablet.Dr) 40 mg PO BID [facility] Stop: 05/20/23 20:59 Last Admin: 05/25/22 08:31 Dose: 40 mg Potassium Chloride (Potassium Chloride Er 20 Meq Tab.Er.Prt) 40 meq PO DAILY PRN PRN Reason: Hypokalemia Stop: 05/20/23 13:39 Sodium Bicarbonate (Sodium Bicarbonate 650 Mg Tablet) 1,300 mg PO BID [facility] Stop: 05/20/23 20:59 Last Admin: 05/25/22 08:30 [...] (1,000 Units) Tablet) 50 mcg PO DAILY [facility] Stop: 05/21/23 08:59 Last Admin: 05/25/22 08:30 [...] panel while he is on antibiotics. Please keepvancomycin level between 15 and 20 to avoid tubular injury. Avoid NSAIDs for pain control. Avoid IVcontrast. Continue oral sodium bicarb. Check renal function [...] controlled. Patient is on Bumex, Coreg, hydralazine, nifedipine.I will continue to monitor blood pressure and adjust medications as needed (4) Anemia of renal disease: Plan: Patient has anemia from CKD. [facility] Patient missed the last appointment. Patient received 1 unit of RBC May 21. Patient also was given 1 dose of Vkftuc36,000 units May 21 . No need for RBC transfusion. Continue tomonitor H&H (5) Osteomyelitis of right foot: Plan: [...] <Electronically signed by Yvonne Barboza MD> 05/25/22 6459 [facility] Work Phone: 1(591) 118-855903-06-2023 Progress note Author Ashutosh Thomas [facility] May 25, 2022 11:21amNote Date/TimeMarch 2022 11:22[place] [address] Infect. Disease Progress Note Signed Patient: Gopal Yates Jr MR#: [id number] : 1965 Acct:[id number] Age/Sex: 56 / M Adm Date: 3 Loc: 3T Room: [address] [place] [address] Type: ADM IN Attending Dr: Scotty Kahn [...] 2 Mg Tablet) 2 mg PO DAILY [facility] Stop: 05/21/23 08:59 Last Admin: 05/25/22 08:30 Dose: 2 mg Carvedilol (Carvedilol 12.5 Mg Tablet) 37.5 mg PO BID.WITH.MEALS [facility] Stop: 05/20/23 16:59 Last Admin: 05/25/22 08:30 Dose: 37.5 mg Cyproheptadine HCl (Cyproheptadine 4 Mg Tablet) 4 mg PO BID [facility] Stop: 05/23/23 20:59 Last Admin: 05/25/22 08:30 Dose: 4 mg Ezetimibe (Ezetimibe 10 Mg Tablet) 10 mg PO DAILY [facility] Stop: 05/21/23 08:59 Last Admin: 05/25/22 08:30 Dose: 10 mg Hydralazine HCl (Hydralazine 50 Mg Tablet) 50 mg PO TID [facility] Stop: 05/20/23 13:59 Last Admin: 05/25/22 08:30 Dose: 50 mg Piperacillin Sod/Tazobactam Sod (Zosyn 2.25gm) 2.25 gm in 100 mls @ 200 mls/hr IV Q6H [facility] Last Admin: 05/25/22 11:06 Dose: 200 mls/hr Insulin Glargine (Insulin Glargine 300 Units/3 Ml Insuln.Pen) 16 units SUBCUT QAM [facility] Stop: 05/21/23 08:59 Last Admin: 05/25/22 08:31 Dose: 16 units Isosorbide Dinitrate (Isosorbide Dinitrate 10 Mg Tablet) 10 mg PO TID [facility] Stop: 05/20/23 13:59 Last Admin: 05/25/22 08:30 Dose: 10 mg Levothyroxine Sodium (Levothyroxine 100 Mcg Tablet) 100 mcg PO DAILY@0630 [facility] Stop: 05/21/23 06:29 Last Admin: 05/25/22 05:34 Dose: Not Given Liothyronine Sodium (Liothyronine 5 Mcg Tablet) 10 mcg PO DAILY [facility] Stop: 05/21/23 08:59 Last Admin: 05/25/22 08:31 Dose: 10 mcg Multivitamins (Multivitamin 1 Tab Tablet) 1 tab PO DAILY [facility] Stop: 05/21/23 08:59 Last Admin: 05/25/22 08:31 Dose: 1 tab Nifedipine (Nifedipine Er.24hr 30 Mg Tab.Er.24) 30 mg PO BID [facility] Stop: 05/20/23 20:59 Last Admin: 05/25/22 08:30 Dose: 30 mg Ondansetron HCl (Ondansetron 4 Mg/2 Ml Vial) 4 mg IV-PUSH Q8H PRN PRN Reason: Nausea And Vomiting Stop: 05/20/23 13:39 Oxycodone HCl (Oxycodone Ir 5 Mg Tablet) 5 mg PO Q6H PRN PRN Reason: Pain Scale 4 - 7 Pantoprazole Sodium (Pantoprazole 40 Mg Tablet.Dr) 40 mg PO BID [facility] Stop: 05/20/23 20:59 Last Admin: 05/25/22 08:31 [...] signed by MD Ashutosh Thomas> 05/25/22 [facility] Work Phone: [phone] Discharge summary Author Scotty Kahn [facility] May 25, 2022 5:23pmNote Date/TimeMar2022 10:30[place] [id number] Discharge Summary Signed Patient: Gopal Yates Jr MR#: [id number] : 1965 Acct:[id number] Age/Sex: 56 / M Adm Date: 3 Loc: Room: [address] [place] [address]: Scotty Kahn DO Copies to: [...] of CKD stage 5, CAD status post HI, HFpEF, HTN, HLD, insulin-dependent DM type II, hypothyroidism was sent to the emergency department by his cemetery worker due to worsening right lateral foot ulcer. Patient recently was discharged from the hospital on 05/14/22, where he underwentpartial right fifthray amputation on the right foot and was discharged home on oral antibiotics. Patient had been following with podiatry who noted worsening Rfoot ulcer and was sent to ER. Imaging was suspicious for os teomyelitis and patient was admitted with infectious disease [...] had as it prompted 3 loose bowel movements.Since then he has not had no loose [...] % (Auto) 75.9, Lymph % (Auto) 9.2, [place] % (Auto) 10.5, Eos % (Auto) 3.4, Baso % (Auto) 1.0, Nucleat RBC Rel Count 0.0, Neut # (Auto) 5.8, Lymph # (Auto) 0.7 L, [place] # (Auto) 0.8, Eos # (Auto) 0.3, [...] PRN-- sterile antimicrobial dressing applied per protocol. Changestatlock with every dressing change. *Administer IV antibiotics [...] Patient Ordered By: Ashutosh Thomas Follow Up: [facility] [Outside] - 05/27/22 2:30 pm (For wound vac change, PICC line dressing change,and weekly labs) Sohan Kellogg MD [Active Staff] - 05/28/22 (PD Catheter Insertion scheduled forthe following date.) Ashutosh Thomas MD [Active Staff] - 06/29/22 [...] am (You have been scheduled for a followup appointment for the following date and time, please call to reschedule if needed.) Yvonne Barboza MD [Active Staff] - 06/03/22 3:40 pm (Previously scheduled appointment. ) Documented By: Scotty Kahn DO 1028 Signed By: <Electronically signed by Scotty Kahn DO> 05/25/22 1723 <Electronically signed by DO NADIR Velez> 05/25/22 [facility] Work Phone: 1(363) [phone] Progress note Author Cristobal Butts [facility] March 5th, 2023 12:26pmNote Date/TimeMarch 2022 12:26pm[place]ab[place] [address] Nephrology Progress Note Signed Patient: Gopal Yates Jr MR#: [id number] : 1965 Acct:[id number] Age/Sex: 56 / M Adm Date: 3 Loc: Room: [address] [place] [address] Type: ADM IN Attending Dr: Salvador Alonso MD Copies to: ~ Date of Service: 05/24/2022 Subjective Subjective Narrative: This is 56-year-old male patient with a past medical history of chronic kidney disease stage V fromdiabetic and hypertensive nephropathy follows with me in renal office. Coronary artery disease withhistory of myocardial infarction, heart failure with reduced ejection fraction, hyperlipidemia, insulin-dependent diabetes mellitus and hypothyroidism. Patient was referred to the hospital by his podiatric physician for worsening right lateral foot ulcer. Patient had recent partial fifth ray amputation of his right foot. Patient was discharged to finish antibiotics. Foot MRI from yesterday showededema in the head of the second metatarsal as well as the proximal and middle phalanx of the fourth digitsuspicious for osteomyelitis. Edema is also noted at the fourth transmetatarsaljunction suspicious for osteomyelitis. There is also marrow edema affecting thehead of the third metatarsal as wellas the proximal phalanx of the third digit [...] following with hematology clinic here in [facility] for CAROL injection. Patient missedher last appointment. Hemoglobin this morning 7.7 g [...] 2 Mg Tablet) 2 mg PO DAILY [facility] Stop: 05/21/23 08:59 Last Admin: 05/24/22 08:56 Dose: 2 mg Carvedilol (Carvedilol 12.5 Mg Tablet) 37.5 mg PO BID.WITH.MEALS [facility] Stop: 05/20/23 16:59 Last Admin: 05/24/22 08:56 Dose: 37.5 mg Cyproheptadine HCl (Cyproheptadine 4 Mg Tablet) 4 mg PO BID [facility] Stop: 05/23/23 20:59 Last Admin: 05/24/22 08:55 Dose: 4 mg Ezetimibe (Ezetimibe 10 Mg Tablet) 10 mg PO DAILY [facility] Stop: 05/21/23 08:59 Last Admin: 05/24/22 08:56 Dose: 10 mg Hydralazine HCl (Hydralazine 50 Mg Tablet) 50 mg PO TID [facility] Stop: 05/20/23 13:59 Last Admin: 05/24/22 08:56 Dose: 50 mg Piperacillin Sod/Tazobactam Sod (Zosyn 2.25gm) 2.25 gm in 100 mls @ 200 mls/hr IV Q6H [facility] Last Admin: 05/24/22 11:49 Dose: 200 mls/hr Insulin Glargine (Insulin Glargine 300 Units/3 Ml Insuln.Pen) 16 units SUBCUT QAM [facility] Stop: 05/21/23 08:59 Last Admin: 05/24/22 08:56 Dose: 16 units Isosorbide Dinitrate (Isosorbide Dinitrate 10 Mg Tablet) 10 mg PO TID [facility] Stop: 05/20/23 13:59 Last Admin: 05/24/22 08:55 Dose: 10 mg Levothyroxine Sodium (Levothyroxine 100 Mcg Tablet) 100 mcg PO DAILY@0630 [facility] Stop: 05/21/23 06:29 Last Admin: 05/24/22 05:44 Dose: 100 mcg Liothyronine Sodium (Liothyronine 5 Mcg Tablet) 10 mcg PO DAILY [facility] Stop: 05/21/23 08:59 Last Admin: 05/24/22 08:56 Dose: 10 mcg Multivitamins (Multivitamin 1 Tab Tablet) 1 tab PO DAILY [facility] Stop: 05/21/23 08:59 Last Admin: 05/24/22 08:56 Dose: 1 tab Nifedipine (Nifedipine Er.24hr 30 Mg Tab.Er.24) 30 mg PO BID [facility] Stop: 05/20/23 20:59 Last Admin: 05/24/22 08:55 [...] (1,000 Units) Tablet) 50 mcg PO DAILY [facility] Stop: 05/21/23 08:59 Last Admin: 05/24/22 08:56 [...] controlled. Patient is on Bumex, Coreg, hydralazine, nifedipine.I will continue to monitor blood pressure and adjust medications as needed (4) Anemia of renal disease: Plan: Patient has anemia from CKD. [facility] Patient missed the last appointment. Patient received 1 unit of RBC May 21. Patient also was given 1 dose of Cgtbbl17,000 units May 21 . Hemoglobin is 8 [...] By: <Electronically signed by Cristobal Butts MD> 05/24/226 [facility] Work Phone: 1(691) [phone] Progress note [facility] May 24, 2022 12:12pmNote Date/TimeMarch 2022 12:12[place] [address] Hospitalist Progress Note Signed Patient: Gopal Yates MR#: [id number] : 1965 Acct:[id number] Age/Sex: 56 / M Adm Date: 3 Loc: 3T Room: [address] [place] [address] Type: ADM IN Attending Dr: Salvador Alonso [...] 05/24/22 08:56 Liothyronine 5 Mcg Tablet PO 03/01/24 08:59 10 mcg DAILY [facility] Administration Multivitamins [...] signed by Salvador Alonso MD> 05/24/22 [facility] Work Phone: [phone]) [phone] Progress note Author Cristobal Schmittimelda [facility] May 23, 2022 1:42pmNote Date/TimeMar2022 1:40[place]ab[place] [address] Nephrology Progress Note Signed Patient: Gopal Yates Jr MR#: [id number] : 1965 Acct:[id number] Age/Sex: 56 / M Adm Date: 3 Loc: Room: [address] [place] [address] Type: ADM IN Attending Dr: Salvador Alonso MD Copies to: ~ Date of Service: 05/23/2022 Subjective Subjective Narrative: This is 56-year-old male patient with a past medical history of chronic kidney disease stage V fromdiabetic and hypertensive nephropathy follows with me in renal office. Coronary artery disease withhistory of myocardial infarction, heart failure with reduced ejection fraction, hyperlipidemia, insulin-dependent diabetes mellitus and hypothyroidism. Patient was referred to the hospital by his podiatric physician for worsening right lateral foot ulcer. Patient had recent partial fifth ray amputation of his right foot. Patient was discharged to finish antibiotics. Foot MRI from yesterday showededema in the head of the second metatarsal as well as the proximal and middle phalanx of the fourth digitsuspicious for osteomyelitis. Edema is also noted at the fourth transmetatarsaljunction suspicious for osteomyelitis. There is also marrow edema affecting thehead of the third metatarsal as wellas the proximal phalanx of the third digit [...] following with hematology clinic here in [facility] for CAROL injection. Patient missedher last appointment. Hemoglobin this morning 7.7 g [...] 2 Mg Tablet) 2 mg PO DAILY [facility] Stop: 05/21/23 08:59 Last Admin: 05/23/22 09:36 Dose: 2 mg Carvedilol (Carvedilol 12.5 Mg Tablet) 37.5 mg PO BID.WITH.MEALS [facility] Stop: 05/20/23 16:59 Last Admin: 05/23/22 09:35 Dose: 37.5 mg Cyproheptadine HCl (Cyproheptadine 4 Mg Tablet) 4 mg PO DAILY [facility] Stop: 05/21/23 08:59 Last Admin: 05/23/22 09:36 Dose: 4 mg Ezetimibe (Ezetimibe 10 Mg Tablet) 10 mg PO DAILY [facility] Stop: 05/21/23 08:59 Last Admin: 05/23/22 09:35 Dose: 10 mg Hydralazine HCl (Hydralazine 50 Mg Tablet) 50 mg PO TID [facility] Stop: 05/20/23 13:59 Last Admin: 05/23/22 09:36 Dose: 50 mg Piperacillin Sod/Tazobactam Sod (Zosyn 2.25gm) 2.25 gm in 100 mls @ 200 mls/hr IV Q6H [facility] Last Admin: 05/23/22 11:31 Dose: 200 mls/hr Insulin Glargine (Insulin Glargine 300 Units/3 Ml Insuln.Pen) 16 units SUBCUT QAM [facility] Stop: 05/21/23 08:59 Last Admin: 05/23/22 09:38 Dose: 16 units Isosorbide Dinitrate (Isosorbide Dinitrate 10 Mg Tablet) 10 mg PO TID [facility] Stop: 05/20/23 13:59 Last Admin: 05/23/22 09:37 Dose: 10 mg Levothyroxine Sodium (Levothyroxine 100 Mcg Tablet) 100 mcg PO DAILY@0630 [facility] Stop: 05/21/23 06:29 Last Admin: 05/23/22 05:34 Dose: 100 mcg Liothyronine Sodium (Liothyronine 5 Mcg Tablet) 10 mcg PO DAILY [facility] Stop: 05/21/23 08:59 Last Admin: 05/23/22 09:35 Dose: 10 mcg Multivitamins (Multivitamin 1 Tab Tablet) 1 tab PO DAILY [facility] Stop: 05/21/23 08:59 Last Admin: 05/23/22 09:36 Dose: 1 tab Nifedipine (Nifedipine Er.24hr 30 Mg Tab.Er.24) 30 mg PO BID [facility] Stop: 05/20/23 20:59 Last Admin: 05/23/22 09:36 Dose: 30 mg Ondansetron HCl (Ondansetron 4 Mg/2 Ml Vial) 4 mg IV-PUSH Q8H PRN PRN Reason: Nausea And Vomiting Stop: 05/20/23 13:39 Oxycodone HCl (Oxycodone Ir 5 Mg Tablet) 5 mg PO Q6H PRN PRN Reason: Pain Scale 4 - 7 Pantoprazole Sodium (Pantoprazole 40 Mg Tablet.Dr) 40 mg PO BID [facility] Stop: 05/20/23 20:59 Last Admin: 05/23/22 09:35 Dose: 40 mg Potassium Chloride (Potassium Chloride Er 20 Meq Tab.Er.Prt) 40 meq PO DAILY PRN PRN Reason: Hypokalemia Stop: 05/20/23 13:39 Sodium Bicarbonate (Sodium Bicarbonate 650 Mg Tablet) 1,300 mg PO BID [facility] Stop: 05/20/23 20:59 Last Admin: 05/23/22 09:36 [...] (1,000 Units) Tablet) 50 mcg PO DAILY [facility] Stop: 05/21/23 08:59 Last Admin: 05/23/22 09:36 [...] controlled. Patient is on Bumex, Coreg, hydralazine, nifedipine.I will continue to monitor blood pressure and adjust medications as needed (4) Anemia of renal disease: Plan: Patient has anemia from CKD. Patient has been following with hematology clinic here in [facility] CAROL injection . Patient missed the last appointment. Patient received 1 unit of RBC May 21. Patient also was given 1 dose of Bwllas66,000 units May 21 . Continue to monitor H&H (5) Osteomyelitis of right foot: Plan: Right foot MRI findings as as in HPI. Patient currently covered by vancomycin and Zosyn IV. Status post amputation of the right fourth toe with I&D of right foot abscess with wound VAC placement.Pediatric service is following Documented By: Cristobal Butts MD 05/23/22 1339 Signed By: <Electronically signed by Cristobal Butts MD> 05/23/22 134[facility] Work Phone: 1(715) 355-614403-04-2023 Progress note Author Eddy Griggs [facility] May 23, 2022 10:48amNote Date/TimeMar2022 10:48[place]ab[place] [address] Podiatry Progress Note Signed Patient: Gopal Yates Jr MR#: [id number] : 1965 Acct:[id number] Age/Sex: 56 / M Adm Date: 3 Loc: Room: [address] [place] [address] Type: ADM IN Attending Dr: Salvador Alonso [...] very complicated patient with multiple comorbidities that arebrought him to this level of pathology and surgery and will also obviously impair healing. He is lucas y pleasant individual with diabetes mellitus, neuropathy and [...] obviously of the fifth toe and right fifthmetatarsal partial base is intact. Appears to be [...] has been applied to the right foot. Hestates that he is scheduled for discharge on Wednesday once they are able to arrange visits at the infusion center. It has been very difficult getting home health care ordered for the patient due to hisinsurance and limited staffing. Patient states that he [...] By: <Electronically signed by HARRY Griggs> 05/23/22 [facility] Work Phone: [phone]) 127-514603-04-2023 Progress note Author Salvador [facility] May 23, 2022 10:32amNote Date/TimeMarch 2022 10:[address] [address] Hospitalist Progress Note Signed Patient: Gopal Yates MR#: [id number] : 1965 Acct:[id number] Age/Sex: 56 / M Adm Date: 3 Loc: 3T Room: [address] [place] [address] Type: ADM IN Attending Dr: Salvador Alonso [...] 05/23/22 09:35 Liothyronine 5 Mcg Tablet PO 03/01/24 08:59 10 mcg DAILY [facility] Administration Multivitamins [...] 05/20/22 21:00 05/23/22 09:35 Pantoprazole 40 Mg Tablet. PO 05/20/23 20:59 [...] signed by Salvador Alonso MD> 05/23/22 [facility] Work Phone: [phone] Progress note Author Salvador Alonso [facility] May 22, 2022 2:54pmNote Date/TimeMar2022 2:55pm[place] [address] Hospitalist Progress Note Signed Patient: Gopal Yates Jr MR#: [id number] : 1965 Acct:[id number] Age/Sex: 56 / M Adm Date: 3 Loc: Room: [address] [place] [address] Type: ADM IN Attending Dr: Salvador Alonso [...] <Electronically signed by Salvador Alonso MD> 05/22/22 1451 [facility] Work Phone: 1([phone]) 303-988303-03-2023 Progress note [facility] May 22, 2022 1:15pmNote Date/TimeMar2022 1:16pm[place]ab[place] [address] Nephrology Progress Note Signed Patient: Gopal Yates Jr MR#: [id number] : 1965 Acct:[id number] Age/Sex: 56 / M Adm Date: 3 Loc: Room: [address] [place] [address] Type: ADM IN Attending Dr: Salvador Alonso MD Copies to: ~ Date of Service: 05/22/2022 Subjective Subjective Narrative: This is 56-year-old male patient with a past medical history of chronic kidney disease stage V fromdiabetic and hypertensive nephropathy follows with me in renal office. Coronary artery disease withhistory of myocardial infarction, heart failure with reduced ejection fraction, hyperlipidemia, insulin-dependent diabetes mellitus and hypothyroidism. Patient was referred to the hospital by his podiatric physician for worsening right lateral foot ulcer. Patient had recent partial fifth ray amputation of his right foot. Patient was discharged to finish antibiotics. Foot MRI from yesterday showededema in the head of the second metatarsal as well as the proximal and middle phalanx of the fourth digitsuspicious for osteomyelitis. Edema is also noted at the fourth transmetatarsaljunction suspicious for osteomyelitis. There is also marrow edema affecting thehead of the third metatarsal as wellas the proximal phalanx of the third digit [...] following with hematology clinic here in [facility] for CAROL injection. Patient missedher last appointment. Hemoglobin this morning 7.7 g [...] 2 Mg Tablet) 2 mg PO DAILY [facility] Stop: 05/21/23 08:59 Last Admin: 05/22/22 08:34 Dose: 2 mg Carvedilol (Carvedilol 12.5 Mg Tablet) 37.5 mg PO BID.WITH.MEALS [facility] Stop: 05/20/23 16:59 Last Admin: 05/22/22 08:34 Dose: 37.5 mg Cyproheptadine HCl (Cyproheptadine 4 Mg Tablet) 4 mg PO DAILY [facility] Stop: 05/21/23 08:59 Last Admin: 05/22/22 08:33 Dose: 4 mg Ezetimibe (Ezetimibe 10 Mg Tablet) 10 mg PO DAILY [facility] Stop: 05/21/23 08:59 Last Admin: 05/22/22 08:34 Dose: 10 mg Hydralazine HCl (Hydralazine 50 Mg Tablet) 50 mg PO TID [facility] Stop: 05/20/23 13:59 Last Admin: 05/22/22 08:34 Dose: 50 mg Piperacillin Sod/Tazobactam Sod (Zosyn 2.25gm) 2.25 gm in 100 mls @ 200 mls/hr IV Q6H [facility] Last Admin: 05/22/22 11:31 Dose: 200 mls/hr Lactated Ringer's (Lactated Ringers) 1,000 mls @ 20 mls/hr IV .Q24H [facility] Stop: 05/22/22 13:54 Last Admin: 05/21/22 15:44 Dose: 20 mls/hr Insulin Glargine (Insulin Glargine 300 Units/3 Ml Insuln.Pen) 16 units SUBCUT QAM [facility] Stop: 05/21/23 08:59 Last Admin: 05/22/22 08:34 Dose: 16 units Isosorbide Dinitrate (Isosorbide Dinitrate 10 Mg Tablet) 10 mg PO TID [facility] Stop: 05/20/23 13:59 Last Admin: 05/22/22 08:34 Dose: 10 mg Levothyroxine Sodium (Levothyroxine 100 Mcg Tablet) 100 mcg PO DAILY@0630 [facility] Stop: 05/21/23 06:29 Last Admin: 05/22/22 06:05 Dose: 100 mcg Liothyronine Sodium (Liothyronine 5 Mcg Tablet) 10 mcg PO DAILY [facility] Stop: 05/21/23 08:59 Last Admin: 05/22/22 08:33 Dose: 10 mcg Multivitamins (Multivitamin 1 Tab Tablet) 1 tab PO DAILY [facility] Stop: 05/21/23 08:59 Last Admin: 05/22/22 08:33 Dose: 1 tab Nifedipine (Nifedipine Er.24hr 30 Mg Tab.Er.24) 30 mg PO BID [facility] Stop: 05/20/23 20:59 Last Admin: 05/22/22 08:34 [...] following with hematology clinic here in [facility]. Patient missed the last appointment. Patient [...] is following Documented By: Cristobal Butts MD 05/22/221310 Signed By: <Electronically signed by Cristobal Butts MD> 05/22/22 1315 [facility] Work Phone: 1([phone]) [phone] Progress note Author Ashutosh Thomas [facility] May 22, 2022 12:21pmNote Date/TimeMarch 2022 12:21pm[place] [address] Infect. Disease Progress Note Signed Patient: Gopal Yates Jr MR#: [id number] : 1965 Acct:[id number] Age/Sex: 56 / M Adm Date: 3 Loc: Room: [address] [place] [address] Type: ADM IN Attending Dr: Salvador Alonso [...] 2 Mg Tablet) 2 mg PO DAILY [facility] Stop: 05/21/23 08:59 Last Admin: 05/22/22 08:34 Dose: 2 mg Carvedilol (Carvedilol 12.5 Mg Tablet) 37.5 mg PO BID.WITH.MEALS [facility] Stop: 05/20/23 16:59 Last Admin: 05/22/22 08:34 Dose: 37.5 mg Cyproheptadine HCl (Cyproheptadine 4 Mg Tablet) 4 mg PO DAILY [facility] Stop: 05/21/23 08:59 Last Admin: 05/22/22 08:33 Dose: 4 mg Ezetimibe (Ezetimibe 10 Mg Tablet) 10 mg PO DAILY [facility] Stop: 05/21/23 08:59 Last Admin: 05/22/22 08:34 Dose: 10 mg Hydralazine HCl (Hydralazine 50 Mg Tablet) 50 mg PO TID [facility] Stop: 05/20/23 13:59 Last Admin: 05/22/22 08:34 Dose: 50 mg Piperacillin Sod/Tazobactam Sod (Zosyn 2.25gm) 2.25 gm in 100 mls @ 200 mls/hr IV Q6H [facility] Last Admin: 05/22/22 11:31 Dose: 200 mls/hr Lactated Ringer's (Lactated Ringers) 1,000 mls @ 20 mls/hr IV .Q24H [facility] Stop: 05/22/22 13:54 Last Admin: 05/21/22 15:44 Dose: 20 mls/hr Vancomycin HCl 1.25 gm/ (Dextrose) 275 mls @ 183.333 mls/hr IV ONCE ONE Stop: 05/22/22 12:59 Insulin Glargine (Insulin Glargine 300 Units/3 Ml Insuln.Pen) 16 units SUBCUT QAM [facility] Stop: 05/21/23 08:59 Last Admin: 05/22/22 08:34 Dose: 16 units Isosorbide Dinitrate (Isosorbide Dinitrate 10 Mg Tablet) 10 mg PO TID [facility] Stop: 05/20/23 13:59 Last Admin: 05/22/22 08:34 Dose: 10 mg Levothyroxine Sodium (Levothyroxine 100 Mcg Tablet) 100 mcg PO DAILY@0630 [facility] Stop: 05/21/23 06:29 Last Admin: 05/22/22 06:05 Dose: 100 mcg Liothyronine Sodium (Liothyronine 5 Mcg Tablet) 10 mcg PO DAILY [facility] Stop: 05/21/23 08:59 Last Admin: 05/22/22 08:33 Dose: 10 mcg Multivitamins (Multivitamin 1 Tab Tablet) 1 tab PO DAILY [facility] Stop: 05/21/23 08:59 Last Admin: 05/22/22 08:33 Dose: 1 tab Nifedipine (Nifedipine Er.24hr 30 Mg Tab.Er.24) 30 mg PO BID [facility] Stop: 05/20/23 20:59 Last Admin: 05/22/22 08:34 Dose: 30 mg Ondansetron HCl (Ondansetron 4 Mg/2 Ml Vial) 4 mg IV-PUSH Q8H PRN PRN Reason: Nausea And Vomiting Stop: 05/20/23 13:39 Oxycodone HCl (Oxycodone Ir 5 Mg Tablet) 5 mg PO Q6H PRN PRN Reason: Pain Scale 4 - 7 Pantoprazole Sodium (Pantoprazole 40 Mg Tablet.Dr) 40 mg PO BID [facility] Stop: 05/20/23 20:59 Last Admin: 05/22/22 08:34 Dose: 40 mg Potassium Chloride (Potassium Chloride Er 20 Meq Tab.Er.Prt) 40 meq PO DAILY PRN PRN Reason: Hypokalemia Stop: 05/20/23 13:39 Sodium Bicarbonate (Sodium Bicarbonate 650 Mg Tablet) 1,300 mg PO BID [facility] Stop: 05/20/23 20:59 Last Admin: 05/22/22 08:33 [...] however PICC line was just ordered and antibioticshave to be arranged for home. Documented By: Ashutosh Thomas MD 05/22/22 1218 Signed By: <Electronically signed by MD Ashutosh Thomas> 05/22/22 1221 [facility] Work Phone: [phone]) [phone] Progress note Author Eddy Griggs [facility] May 22, 2022 8:23amNote Date/TimeMarch 2022 8:18[place] [id number] Podiatry Progress Note Signed Patient: Gopal Yates Jr MR#: [id number] : 1965 Acct:[id number] Age/Sex: 56 / M Adm Date: 3 Loc: 3T Room: [address] [place] [address] Type: ADM IN Attending Dr: Salvador Alonso [...] very complicated patient with multiple comorbidities that arebrought him to this level of pathology and surgery and will also obviously impair healing. He is lucas y pleasant individual with diabetes mellitus, neuropathy and [...] obviously of the fifth toe and right fifthmetatarsal partial base is intact. Appears to be [...] he would like to go to the [place] [facility] to have dressing changes, but Ipersonally called [...] <Electronically signed by HARRY Griggs> 05/22/22 0823 [facility] Work Phone: 1([phone] 615-377303-03-2023 Progress note Author Salvador Alonso [facility] May 21, 2022 11:00pmNote Date/TimeMarch 2022 11:00pm[place] [address] Hospitalist Progress Note Signed Patient: Gopal Yates Jr MR#: [id number] : 1965 Acct:[id number] Age/Sex: 56 / M Adm Date: 3 Loc: Room: [address] [place] [address] Type: ADM IN Attending Dr: Salvador Alonso [...] Tablet PO 05/21/23 08:59 Not Given DAILY [facility] Carvedilol 37.5 mg 05/20/22 17:00 05/21/22 19:39 [...] code Documented By: Salvador Alonso MD 05/21/22 6943 Signed By: <Electronically signed by Salvador Alonso MD> 05/21/22 2300 [facility] Work Phone: 1(437) 331-986703-02-2023 Consult note Author Cristobal Butts [facility] May 21, 2022 1:27pmNote Date/TimeMar2022 1:27pm[place]abill[place] [address] Nephrology Consult Note Signed Patient: Gopal Yates Jr MR#: [id number] : 1965 Acct:[id number] Age/Sex: 56 / M Adm Date: 3 Loc: Room: [address] [place] [address] Type: ADM IN Attending Dr: Salvador Alonso MD Copies to: MD Cristobal Boles MD Douglas M Hoy, MD~ Providers Consult Date: 05/21/22 Requesting Provider: Salvador Alonso MD Primary Care Provider: oDuglas Juárez MD HPI Reason for Consult: Chronic kidney disease stage V History of Present Illness: This is 56-year-old male patient with a past medical history of chronic kidney disease stage V fromdiabetic and hypertensive nephropathy follows with me in renal office. Coronary artery disease withhistory of myocardial infarction, heart failure with reduced ejection fraction, hyperlipidemia, insulin-dependent diabetes mellitus and hypothyroidism. Patient was referred to the hospital by his podiatric physician for worsening right lateral foot ulcer. Patient had recent partial fifth ray amputation of his right foot. Patient was discharged to finish antibiotics. Foot MRI from yesterday showededema in the head of the second metatarsal as well as the proximal and middle phalanx of the fourth digitsuspicious for osteomyelitis. Edema is also noted at the fourth transmetatarsaljunction suspicious for osteomyelitis. There is also marrow edema affecting thehead of the third metatarsal as wellas the proximal phalanx of the third digit [...] following with hematology clinic here in [facility] for CAROL injection. Patient missedher last appointment. Hemoglobin this morning 7.7 g [...] 12.5 Mg Tablet) 37.5 mg PO BID.WITH.MEALS [facility] Stop: 05/20/23 16:59 Last Admin: 05/21/22 07:52 Dose: 37.5 mg Cyproheptadine HCl (Cyproheptadine 4 Mg Tablet) 4 mg PO DAILY [facility] Stop: 05/21/23 08:59 Last Admin: 05/21/22 08:00 Dose: Not Given Ezetimibe (Ezetimibe 10 Mg Tablet) 10 mg PO DAILY [facility] Stop: 05/21/23 08:59 Last Admin: 05/21/22 08:00 Dose: Not Given Hydralazine HCl (Hydralazine 50 Mg Tablet) 50 mg PO TID [facility] Stop: 05/20/23 13:59 Last Admin: 05/21/22 08:00 Dose: Not Given Sodium Chloride (0.9 % Sodium Chloride) 500 mls @ 20 mls/hr IV PROTOCOL PRN PRN Reason: BLOOD TRANSFUSION Stop: 05/22/22 08:32 Piperacillin Sod/Tazobactam Sod (Zosyn 2.25gm) 2.25 gm in 100 mls @ 200 mls/hr IV Q6H [facility] Last Admin: 05/21/22 11:18 Dose: 200 mls/hr Insulin Glargine (Insulin Glargine 300 Units/3 Ml Insuln.Pen) 16 units SUBCUT QAM [facility] Stop: 05/21/23 08:59 Last Admin: 05/21/22 08:00 Dose: Not Given Isosorbide Dinitrate (Isosorbide Dinitrate 10 Mg Tablet) 10 mg PO TID [facility] Stop: 05/20/23 13:59 Last Admin: 05/21/22 08:00 Dose: Not Given Levothyroxine Sodium (Levothyroxine 100 Mcg Tablet) 100 mcg PO DAILY@0630 [facility] Stop: 05/21/23 06:29 Last Admin: 05/21/22 06:20 Dose: 100 mcg Liothyronine Sodium (Liothyronine 5 Mcg Tablet) 10 mcg PO DAILY [facility] Stop: 05/21/23 08:59 Last Admin: 05/21/22 08:00 Dose: Not Given Multivitamins (Multivitamin 1 Tab Tablet) 1 tab PO DAILY [facility] Stop: 05/21/23 08:59 Last Admin: 05/21/22 08:00 Dose: Not Given Nifedipine (Nifedipine Er.24hr 30 Mg Tab.Er.24) 30 mg PO BID [facility] Stop: 05/20/23 20:59 Last Admin: 05/21/22 08:01 Dose: Not Given Ondansetron HCl (Ondansetron 4 Mg/2 Ml Vial) 4 mg IV-PUSH Q8H PRN PRN Reason: Nausea And Vomiting Stop: 05/20/23 13:39 Oxycodone HCl (Oxycodone Ir 5 Mg Tablet) 5 mg PO Q6H PRN PRN Reason: Pain Scale 4 - 7 Pantoprazole Sodium (Pantoprazole 40 Mg Tablet.) 40 mg PO BID [facility] Stop: 05/20/23 20:59 Last Admin: 05/21/22 08:01 Dose: Not Given Potassium Chloride (Potassium Chloride Er 20 Meq Tab.Er.Prt) 40 meq PO DAILY PRN PRN Reason: Hypokalemia Stop: 05/20/23 13:39 Sodium Bicarbonate (Sodium Bicarbonate 650 Mg Tablet) 1,300 mg PO BID [facility] Stop: 05/20/23 20:59 Last Admin: 05/21/22 08:01 [...] (1,000 Units) Tablet) 50 mcg PO DAILY [facility] Stop: 05/21/23 08:59 Last Admin: 05/21/22 08:00 [...] metatarsal as well as the proximal phalanx ofthe third digit suspicious for osteomyelitis. There is evidence of ulceration along the lateral soft tissues of the right footwith subcutaneous emphysema. There is also a fluid collection along the interspace between the heads of the third and fourth metatarsals suspicious for abscess formation. There is diffuse soft tissue swelling consistentwith cellulitis. There is edema throughout the intrinsic musculature suggesting myositis. Impression dictated by: Flynn Bradley M.D.05/21/2022 10:03 AM Dictation Location: [place] [address] Any impression(s) listed above is documentation that [...] following with hematology clinic here in [facility]. Patient missed the last appointment. Patient [...] signed by Cristobal Butts MD> 05/21/22 1327 [facility] Work Phone: 1(335) 471-769103-02-2023 Consult note Author CWImelda Luis [facility] May 21, 2022 12:02pmNote Date/TimeMar2022 11:58[place] [address] Podiatry Consult Note Signed Patient: Gopal Yates Jr MR#: [id number] : 1965 Acct:[id number] Age/Sex: 56 / M Adm Date: 3 Loc: Room: [address] [place] [address] Type: ADM IN Attending Dr: Salvador Alonso [...] seen and treated in April by my partnerDr. Griggs who had performed partial amputation of [...] very complicated patient with multiple comorbidities that arebrought him to this level of pathology and surgery and will also obviously impair healing. He is lucas y pleasant individual with diabetes mellitus, neuropathy and [...] the lateral right foot required amputation of rightfifth toe and fifth metatarsal almost to the [...] distal revealed no significant amount of purulence thoughthere may be underlying abscess is not appreciated at this time please note MRI is pending. Radiology examination: X-ray 05-20-2022 reveals amputation obviously of the fifth toe and right fifthmetatarsal partial base is intact. Appears to be [...] definitely does not looksalvageable I would recommend amputationof right fourth toe. However please note MRI [...] pathologies as well as his needfor offloading rightfoot completely, elevation of right foot above heart [...] neuropathy, unspecified Documented By: Primo Luis DPM, MS, CWS 05/14 1153 Signed By: <Electronically signed by HARRY MS CWS Primo Luis> 05/21/22 1202 [facility] Work Phone: 1(715) 779-985003-02-2023 Consult note Author Ashutosh Thomas [facility] May 21, 2022 10:40amNote Date/TimeMarch 2022 10:04[place] [address] Infect. Disease Consult Note Signed Patient: Gopal Yates Jr MR#: [id number] : 1965 Acct:[id number] Age/Sex: 56 / M Adm Date: 3 Loc: Room: [address] [place] [address] Type: ADM IN Attending Dr: Salvador Alonso [...] sent to the ED yesterday by his cemetery worker, Dr. Griggs, because his right foot wound continued to show signs of infection. The patient recently had resection ofhis right fifth digit on 05/07 and completed a 10-day course of Augmentin. The patient states that his wound continued to drain after the operation and that his cemetery worker has scheduled surgery for today. He continues on IV vancomycin, which was started in the ED. The patient has past medical history significant for CKD stage 5 for which he isscheduled to start dialysis and have a PD catheter placed next week, CAD post?HI, HFpEF, hypertension, hyperlipidemia, insulin-dependent T2DM, and hypothyroidism. [...] 2 Mg Tablet) 2 mg PO DAILY [facility] Stop: 05/21/23 08:59 Last Admin: 05/21/22 08:00 Dose: Not Given Carvedilol (Carvedilol 12.5 Mg Tablet) 37.5 mg PO BID.WITH.MEALS [facility] Stop: 05/20/23 16:59 Last Admin: 05/21/22 07:52 Dose: 37.5 mg Cyproheptadine HCl (Cyproheptadine 4 Mg Tablet) 4 mg PO DAILY [facility] Stop: 05/21/23 08:59 Last Admin: 05/21/22 08:00 Dose: Not Given Ezetimibe (Ezetimibe 10 Mg Tablet) 10 mg PO DAILY [facility] Stop: 05/21/23 08:59 Last Admin: 05/21/22 08:00 Dose: Not Given Hydralazine HCl (Hydralazine 50 Mg Tablet) 50 mg PO TID [facility] Stop: 05/20/23 13:59 Last Admin: 05/21/22 08:00 Dose: Not Given Sodium Chloride (0.9 % Sodium Chloride) 500 mls @ 20 mls/hr IV PROTOCOL PRN PRN Reason: BLOOD TRANSFUSION Stop: 05/22/22 08:32 Insulin Glargine (Insulin Glargine 300 Units/3 Ml Insuln.Pen) 16 units SUBCUT QAM [facility] Stop: 05/21/23 08:59 Last Admin: 05/21/22 08:00 Dose: Not Given Isosorbide Dinitrate (Isosorbide Dinitrate 10 Mg Tablet) 10 mg PO TID [facility] Stop: 05/20/23 13:59 Last Admin: 05/21/22 08:00 Dose: Not Given Levothyroxine Sodium (Levothyroxine 100 Mcg Tablet) 100 mcg PO DAILY@0630 [facility] Stop: 05/21/23 06:29 Last Admin: 05/21/22 06:20 Dose: 100 mcg Liothyronine Sodium (Liothyronine 5 Mcg Tablet) 10 mcg PO DAILY [facility] Stop: 05/21/23 08:59 Last Admin: 05/21/22 08:00 Dose: Not Given Multivitamins (Multivitamin 1 Tab Tablet) 1 tab PO DAILY [facility] Stop: 05/21/23 08:59 Last Admin: 05/21/22 08:00 Dose: Not Given Nifedipine (Nifedipine Er.24hr 30 Mg Tab.Er.24) 30 mg PO BID [facility] Stop: 05/20/23 20:59 Last Admin: 05/21/22 08:01 Dose: Not Given Ondansetron HCl (Ondansetron 4 Mg/2 Ml Vial) 4 mg IV-PUSH Q8H PRN PRN Reason: Nausea And Vomiting Stop: 05/20/23 13:39 Oxycodone HCl (Oxycodone Ir 5 Mg Tablet) 5 mg PO Q6H PRN PRN Reason: Pain Scale 4 - 7 Pantoprazole Sodium (Pantoprazole 40 Mg Tablet.Dr) 40 mg PO BID [facility] Stop: 05/20/23 20:59 Last Admin: 05/21/22 08:01 Dose: Not Given Potassium Chloride (Potassium Chloride Er 20 Meq Tab.Er.Prt) 40 meq PO DAILY PRN PRN Reason: Hypokalemia Stop: 05/20/23 13:39 Sodium Bicarbonate (Sodium Bicarbonate 650 Mg Tablet) 1,300 mg PO BID [facility] Stop: 05/20/23 20:59 Last Admin: 05/21/22 08:01 [...] signs of systemic infection. He has been afebrileduring the course of his stay. White blood [...] <Electronically signed by MD Ashutosh Thomas> 05/21/22 104 [facility] Work Phone: [phone]) 863-754303-01-2023 History and physical note Author Salvador Alonso [facility] May 20, 2022 2:43pmNote Date/TimeMarch 2022 1:50pm[place] [address] Hospitalist H&P Signed Patient: Gopal Yates Jr MR#: [id number] : 1965 Acct:[id number] Age/Sex: 56 / M Adm Date: 3 Loc: Room: [address] [place] [address] Type: ADM IN Attending Dr: Salvador Alonso MD Copies to: MD Douglas Boles MD~ HPI DATE OF EXAMINATION: 05/20/22 CHIEF COMPLAINT: osteomyelits HISTORY OF PRESENT ILLNESS: Mr. 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 [...] % (Auto) 3.3 % (.) 05/20/22 11:35 [place] % (Auto) 8.7 % (.) 05/20/22 11:35 Eos % (Auto) 0.2 % (.) 05/20/22 11:35 Baso % (Auto) 0.8 % (.) 05/20/22 11:35 Nucleat RBC Rel Count 0.1 /100 WBC (0-0.5) 05/20/22 11:35 Neut # (Auto) 8.0 x10E3/uL (1.8-7.7) H 05/20/22 11:35 Lymph # (Auto) 0.3 x10E3/uL (1.00-4.8) L 05/20/22 11:35 [place] # (Auto) 0.8 x10E3/uL (0.0-0.8) 05/20/22 11:35 [...] signed by Salvador Alonso MD> 05/20/22 1443 [facility] Work Phone: 1([phone]) 204-661602-17-2023 Progress note Author Yvonne Barboza [facility] May 08, 2022 11:37amNote Date/TimeFebruary 2022 11:[address] [address] Nephrology Progress Note Signed Patient: Gopal Yates MR#: [id number] : 1965 Acct:[id number] Age/Sex: 56 / M Adm Date: 3 Loc: 4N Room: 4E3947-2 Type: ADM IN Attending Dr: Cornelio Simon [...] has no improvement in his wound. Patient alsohas advanced CKD due to the diabetic kidney disease and hypertensive nephrosclerosis. [facility] and hisrenal function has been declining due to progression of CKD. He was referred toDr. Kellogg for peritoneal dialysis catheter placement and is scheduled to see him on 0 05/11/2022. On evaluation emergency room patient was [...] visible mass Skin: No rashes or bruises [employer]ING [employer] WORKER: Awake,Alert, 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 Musculoskeletal: No joint [...] 81 Mg Tablet.) 81 mg PO DAILY [facility] Stop: 05/06/23 08:59 Last Admin: 05/06/22 08:25 Dose: 81 mg Bumetanide (Bumetanide 2 Mg Tablet) 2 mg PO DAILY [facility] Stop: 05/06/23 08:59 Last Admin: 05/08/22 08:48 Dose: 2 mg Carvedilol (Carvedilol 12.5 Mg Tablet) 25 mg PO BID [facility] Stop: 05/05/23 20:59 Last Admin: 05/08/22 08:48 Dose: 25 mg Clopidogrel Bisulfate (Clopidogrel Bisulfate 75 Mg Tablet) 75 mg PO DAILY [facility] Stop: 05/06/23 08:59 Last Admin: 05/06/22 08:26 Dose: 75 mg Dextrose (Dextrose 50% In Water 25 Gm/50 Ml Syringe) 0 gm IV-PUSH PRN PRN PRN Reason: Hypoglycemia Stop: 05/05/23 16:33 Ezetimibe (Ezetimibe 10 Mg Tablet) 10 mg PO DAILY [facility] Stop: 05/06/23 08:59 Last Admin: 05/08/22 08:48 Dose: 10 mg Ferrous Sulfate (Ferrous Sulfate 324 Mg Tablet.) 324 mg PO DAILY [facility] Stop: 05/06/23 08:59 Last Admin: 05/08/22 08:48 Dose: 324 mg Glucose (Dextrose 40% Gel 15 Gm Tube) 0 gm PO PRN PRN PRN Reason: Hypoglycemia Stop: 05/05/23 16:33 Heparin Sodium (Porcine) (Heparin 5,000 Unit/Ml Vial) 5,000 unit SUBCUT Q8HR [facility] Stop: 05/06/23 21:59 Last Admin: 05/08/22 05:43 Dose: 5,000 unit Hydralazine HCl (Hydralazine 50 Mg Tablet) 50 mg PO TID [facility] Stop: 05/05/23 21:59 Last Admin: 05/08/22 08:49 [...] 100 mls @ 200 mls/hr IV Q12H [facility] Stop: 05/06/23 04:59 Last Admin: 05/08/22 04:08 Dose: 200 mls/hr Insulin Aspart (Insulin Aspart 300 Units/3 Ml Insuln.Pen) 0 units SUBCUT TID.WM.HS [facility]; Protocol Stop: 05/05/23 16:59 Last Admin: 05/08/22 08:50 Dose: Not Given Insulin Glargine (Insulin Glargine 300 Units/3 Ml Insuln.Pen) 16 units SUBCUT QAM [facility] Stop: 05/06/23 08:59 Last Admin: 05/08/22 08:50 Dose: Not Given Isosorbide Dinitrate (Isosorbide Dinitrate 10 Mg Tablet) 10 mg PO TID [facility] Stop: 05/05/23 21:59 Last Admin: 05/08/22 08:49 Dose: 10 mg Levothyroxine Sodium (Levothyroxine 100 Mcg Tablet) 100 mcg PO DAILY@0630 [facility] Stop: 05/06/23 06:29 Last Admin: 05/08/22 05:43 Dose: 100 mcg Multivitamins (Multivitamin 1 Tab Tablet) 1 tab PO DAILY [facility] Stop: 05/06/23 08:59 Last Admin: 05/08/22 08:49 Dose: 1 tab Nifedipine (Nifedipine Er.24hr 30 Mg Tab.Er.24) 30 mg PO BID [facility] Stop: 05/05/23 20:59 Last Admin: 05/08/22 08:48 [...] upon discharge. His home dose is 650 mgtwice daily. * Continue home dose of the [...] * Documented By: Yvonne Barboza MD 05/08/22 1136 Signed By: <Electronically signed by Yvonne Barboza MD> 05/08/22 1139 [facility] Work Phone: [phone]) [phone] Progress note Author Cornelio Simon [facility] May 07, 2022 5:08pmNote Date/TimeFebruary 2022 4:41pm[place] [address] Hospitalist Progress Note Signed Patient: Gopal Yates Jr MR#: [id number] : 1965 Acct:[id number] Age/Sex: 56 / M Adm Date: 3 Loc: 4N Room: [address] [place] [address] Type: ADM IN Attending Dr: Cornelio Simon [...] Vial SUBCUT 05/06/23 21:59 Not Given Q8HR [facility] Hydralazine HCl 50 mg 05/05/22 22:00 05/07/22 [...] Insuln.Pen SUBCUT 05/05/23 16:59 Not Given TID.WM.HS [facility] Protocol Insulin Glargine 16 units 05/06/22 09:00 05/07/22 08:07 Insulin Glargine 300 Units/3 Ml Insuln.Pen SUBCUT 05/06/23 08:59 Not Given QAM [facility] Isosorbide Dinitrate 10 mg 05/05/22 22:00 05/07/22 13:59 Isosorbide Dinitrate 10 Mg Tablet PO 05/05/23 21:59 10 mg TID [facility] Administration Levothyroxine Sodium 100 mcg 05/06/22 06:30 05/07/22 07:25 Levothyroxine 100 Mcg Tablet PO 05/06/23 06:29 Not Given DAILY@0630 [facility] Multivitamins 1 tab 05/06/22 09:00 05/07/22 08:07 [...] -Continue Bumex, sodium bicarb CAD status post HI/stent x1 HFpEF Hyperlipidemia Hypertension Patient has no [...] code Documented By: Cornelio Simon MD 3 2067 Signed By: <Electronically signed by Cornelio Simon MD> 05/07/22 170 [facility] Work Phone: 1([phone]) 889-183502-16-2023 Progress note Author Yvonne Barboza [facility] May 07, 2022 12:06pmNote Date/TimeFebruary 2022 12:06pm[address] [address] Nephrology Progress Note Signed Patient: Gopal Yates Jr MR#: [id number] : 1965 Acct:[id number] Age/Sex: 56 / M Adm Date: 3 Loc: 4N Room: [address] [place] [address] Type: ADM IN Attending Dr: Cornelio Simon [...] has no improvement in his wound. Patient alsohas advanced CKD due to the diabetic kidney disease and hypertensive nephrosclerosis. 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 Musculoskeletal: No joint [...] 81 Mg Tablet.) 81 mg PO DAILY [facility] Stop: 05/06/23 08:59 Last Admin: 05/06/22 08:25 Dose: 81 mg Bumetanide (Bumetanide 2 Mg Tablet) 2 mg PO DAILY [facility] Stop: 05/06/23 08:59 Last Admin: 05/06/22 08:26 Dose: 2 mg Carvedilol (Carvedilol 12.5 Mg Tablet) 25 mg PO BID [facility] Stop: 05/05/23 20:59 Last Admin: 05/07/22 08:04 Dose: 25 mg Clopidogrel Bisulfate (Clopidogrel Bisulfate 75 Mg Tablet) 75 mg PO DAILY [facility] Stop: 05/06/23 08:59 Last Admin: 05/06/22 08:26 Dose: 75 mg Dextrose (Dextrose 50% In Water 25 Gm/50 Ml Syringe) 0 gm IV-PUSH PRN PRN PRN Reason: Hypoglycemia Stop: 05/05/23 16:33 Ezetimibe (Ezetimibe 10 Mg Tablet) 10 mg PO DAILY [facility] Stop: 05/06/23 08:59 Last Admin: 05/06/22 08:26 Dose: 10 mg Ferrous Sulfate (Ferrous Sulfate 324 Mg Tablet.Dr) 324 mg PO DAILY [facility] Stop: 05/06/23 08:59 Last Admin: 05/07/22 08:07 Dose: Not Given Glucose (Dextrose 40% Gel 15 Gm Tube) 0 gm PO PRN PRN PRN Reason: Hypoglycemia Stop: 05/05/23 16:33 Heparin Sodium (Porcine) (Heparin 5,000 Unit/Ml Vial) 5,000 unit SUBCUT Q8HR [facility] Stop: 05/06/23 21:59 Last Admin: 05/07/22 05:07 Dose: Not Given Hydralazine HCl (Hydralazine 50 Mg Tablet) 50 mg PO TID [facility] Stop: 05/05/23 21:59 Last Admin: 05/07/22 08:07 Dose: Not Given Magnesium Sulfate (Magnesium Sulf 2gm-*Swfi*) 2 gm in 50 mls @ 25 mls/hr IV DAILY PRN PRN Reason: Magnesium Level < 1.7 Stop: 05/05/23 16:35 Ceftaroline Fosamil 300 mg/ (Sodium Chloride) 100 mls @ 200 mls/hr IV Q12H [facility] Stop: 05/06/23 04:59 Last Admin: 05/07/22 05:07 Dose: 200 mls/hr Lactated Ringer's (Lactated Ringers) 1,000 mls @ 20 mls/hr IV .Q24H [facility] Stop: 05/08/22 01:54 Insulin Aspart (Insulin Aspart 300 Units/3 Ml Insuln.Pen) 0 units SUBCUT TID.WM.HS [facility]; Protocol Stop: 05/05/23 16:59 Last Admin: 05/07/22 12:02 Dose: Not Given Insulin Glargine (Insulin Glargine 300 Units/3 Ml Insuln.Pen) 16 units SUBCUT QAM [facility] Stop: 05/06/23 08:59 Last Admin: 05/07/22 08:07 Dose: Not Given Isosorbide Dinitrate (Isosorbide Dinitrate 10 Mg Tablet) 10 mg PO TID [facility] Stop: 05/05/23 21:59 Last Admin: 05/07/22 08:07 Dose: Not Given Levothyroxine Sodium (Levothyroxine 100 Mcg Tablet) 100 mcg PO DAILY@0630 [facility] Stop: 05/06/23 06:29 Last Admin: 05/07/22 07:25 Dose: Not Given Multivitamins (Multivitamin 1 Tab Tablet) 1 tab PO DAILY [facility] Stop: 05/06/23 08:59 Last Admin: 05/07/22 08:07 Dose: Not Given Nifedipine (Nifedipine Er.24hr 30 Mg Tab.Er.24) 30 mg PO BID [facility] Stop: 05/05/23 20:59 Last Admin: 05/07/22 08:04 Dose: 30 mg Ondansetron HCl (Ondansetron 4 Mg/2 Ml Vial) 4 mg IV-PUSH Q6H PRN PRN Reason: Nausea And Vomiting Stop: 05/05/23 16:35 Pantoprazole Sodium (Pantoprazole 40 Mg Tablet.Dr) 40 mg PO DAILY [facility] Stop: 05/06/23 08:59 Last Admin: 05/07/22 08:07 [...] (1,000 Units) Tablet) 50 mcg PO DAILY [facility] Stop: 05/06/23 08:59 Last Admin: 05/07/22 08:07 [...] Esteban Harden MD05/07/2022 8:58 AM Dictation Location: [place] [address] Any impression(s) listed above is documentation that [...] signed by Yvonne Barboza MD> 05/07/22 1206 [facility] Work Phone: 1(970) 547-441402-16-2023 Progress note Author Ashutosh Thomas [facility] May 07, 2022 10:01amNote Date/TimeFebruary 2022 10:02[place] [address] Infect. Disease Progress Note Signed Patient: Gopal Yates Jr MR#: [id number] : 1965 Acct:[id number] Age/Sex: 56 / M Adm Date: 3 Loc: Room: 7B2015-9 Type: ADM IN Attending Dr: Cornelio Simon [...] 81 Mg Tablet.) 81 mg PO DAILY [facility] Stop: 05/06/23 08:59 Last Admin: 05/06/22 08:25 Dose: 81 mg Bumetanide (Bumetanide 2 Mg Tablet) 2 mg PO DAILY [facility] Stop: 05/06/23 08:59 Last Admin: 05/06/22 08:26 Dose: 2 mg Carvedilol (Carvedilol 12.5 Mg Tablet) 25 mg PO BID [facility] Stop: 05/05/23 20:59 Last Admin: 05/07/22 08:04 Dose: 25 mg Clopidogrel Bisulfate (Clopidogrel Bisulfate 75 Mg Tablet) 75 mg PO DAILY [facility] Stop: 05/06/23 08:59 Last Admin: 05/06/22 08:26 Dose: 75 mg Dextrose (Dextrose 50% In Water 25 Gm/50 Ml Syringe) 0 gm IV-PUSH PRN PRN PRN Reason: Hypoglycemia Stop: 05/05/23 16:33 Ezetimibe (Ezetimibe 10 Mg Tablet) 10 mg PO DAILY [facility] Stop: 05/06/23 08:59 Last Admin: 05/06/22 08:26 Dose: 10 mg Ferrous Sulfate (Ferrous Sulfate 324 Mg Tablet.Dr) 324 mg PO DAILY [facility] Stop: 05/06/23 08:59 Last Admin: 05/07/22 08:07 Dose: Not Given Glucose (Dextrose 40% Gel 15 Gm Tube) 0 gm PO PRN PRN PRN Reason: Hypoglycemia Stop: 05/05/23 16:33 Heparin Sodium (Porcine) (Heparin 5,000 Unit/Ml Vial) 5,000 unit SUBCUT Q8HR [facility] Stop: 05/06/23 21:59 Last Admin: 05/07/22 05:07 Dose: Not Given Hydralazine HCl (Hydralazine 50 Mg Tablet) 50 mg PO TID [facility] Stop: 05/05/23 21:59 Last Admin: 05/07/22 08:07 Dose: Not Given Magnesium Sulfate (Magnesium Sulf 2gm-*Swfi*) 2 gm in 50 mls @ 25 mls/hr IV DAILY PRN PRN Reason: Magnesium Level < 1.7 Stop: 05/05/23 16:35 Ceftaroline Fosamil 300 mg/ (Sodium Chloride) 100 mls @ 200 mls/hr IV Q12H [facility] Stop: 05/06/23 04:59 Last Admin: 05/07/22 05:07 Dose: 200 mls/hr Lactated Ringer's (Lactated Ringers) 1,000 mls @ 20 mls/hr IV .Q24H ONE Stop: 05/08/22 01:54 Insulin Aspart (Insulin Aspart 300 Units/3 Ml Insuln.Pen) 0 units SUBCUT TID.[facility]; Protocol Stop: 05/05/23 16:59 Last Admin: 05/07/22 08:05 Dose: Not Given Insulin Glargine (Insulin Glargine 300 Units/3 Ml Insuln.Pen) 16 units SUBCUT QAM [facility] Stop: 05/06/23 08:59 Last Admin: 05/07/22 08:07 Dose: Not Given Isosorbide Dinitrate (Isosorbide Dinitrate 10 Mg Tablet) 10 mg PO TID [facility] Stop: 05/05/23 21:59 Last Admin: 05/07/22 08:07 Dose: Not Given Levothyroxine Sodium (Levothyroxine 100 Mcg Tablet) 100 mcg PO DAILY@0630 [facility] Stop: 05/06/23 06:29 Last Admin: 05/07/22 07:25 Dose: Not Given Multivitamins (Multivitamin 1 Tab Tablet) 1 tab PO DAILY [facility] Stop: 05/06/23 08:59 Last Admin: 05/07/22 08:07 Dose: Not Given Nifedipine (Nifedipine Er.24hr 30 Mg Tab.Er.24) 30 mg PO BID [facility] Stop: 05/05/23 20:59 Last Admin: 05/07/22 08:04 Dose: 30 mg Ondansetron HCl (Ondansetron 4 Mg/2 Ml Vial) 4 mg IV-PUSH Q6H PRN PRN Reason: Nausea And Vomiting Stop: 05/05/23 16:35 Pantoprazole Sodium (Pantoprazole 40 Mg Tablet.Dr) 40 mg PO DAILY [facility] Stop: 05/06/23 08:59 Last Admin: 05/07/22 08:07 [...] (1,000 Units) Tablet) 50 mcg PO DAILY [facility] Stop: 05/06/23 08:59 Last Admin: 05/07/22 08:07 [...] signed by MD Ashutosh Thomas> 05/07/22 [facility] Work Phone: [phone] 230-492902-15-2023 Consult note Author Eddy Griggs [facility] May 06, 2022 5:35pmNote Date/TimeFebruary 2022 5:35[place]ab[place] [address] Podiatry Consult Note Signed Patient: Gopal Yates Jr MR#: [id number] : 1965 Acct:[id number] Age/Sex: 56 / M Adm Date: 3 Loc: Room: [address] [place] [address] Type: ADM IN Attending Dr: Cornelio Simon [...] under at the wound care center in [place] and x-rays were noted to have osteomyelitis. Due to his kidney function he was sent to [facility] as there is a concern for need for inpatient dialysis which is not available at [place]. Patient statesthat he has had some episodes of fever [...] subcutaneous solution (Lantus U-100 Insulin) See RxInstructions .Route.COMPLEX 05/05/22 [History Confirmed 05/05/22] isosorbide dinitrate 10 [...] with nonviable tissue. There is active drainage noted.Deep portions of the wound do probe to [...] did request to have follow-up at the [place] wound care center. I will contact Dr. [...] <Electronically signed by HARRY Griggs> 05/06/22 [facility] Work Phone: [phone] Consult note Author Sohan Kellogg [facility] May 06, 2022 5:02pmNote Date/TimeFebruary 2022 4:57pmGrabill[place] [address] General Surgery Consult Note Signed Patient: Gopal Yates Jr MR#: [id number] : 1965 Acct:[id number] Age/Sex: 56 / M Adm Date: 3 Loc: Room: [address] [place] [address] Type: ADM IN Attending Dr: Cornelio Simon [...] subcutaneous solution (Lantus U-100 Insulin) See RxInstructions .Route.COMPLEX 05/05/22 [History Confirmed 05/05/22] isosorbide dinitrate 10 [...] 81 Mg Tablet.) 81 mg PO DAILY [facility] Stop: 05/06/23 08:59 Last Admin: 05/06/22 08:25 [...] Tablet) 10 mg PO DAILY [facility] Stop: 05/06/23 08:59 Last Admin: 05/06/22 08:26 Dose: 10 mg Ferrous Sulfate (Ferrous Sulfate 324 Mg Tablet.) 324 mg PO DAILY [facility] Stop: 05/06/23 08:59 Last Admin: 05/06/22 08:25 Dose: 324 mg Glucose (Dextrose 40% Gel 15 Gm Tube) 0 gm PO PRN PRN PRN Reason: Hypoglycemia Stop: 05/05/23 16:33 Heparin Sodium (Porcine) (Heparin 5,000 Unit/Ml Vial) 5,000 unit SUBCUT Q8HR [facility] Stop: 05/06/23 21:59 Hydralazine HCl (Hydralazine 50 Mg Tablet) 50 mg PO TID [facility] Stop: 05/05/23 21:59 Last Admin: 05/06/22 14:46 Dose: 50 mg Magnesium Sulfate (Magnesium Sulf 2gm-*Swfi*) 2 gm in 50 mls @ 25 mls/hr IV DAILY PRN PRN Reason: Magnesium Level < 1.7 Stop: 05/05/23 16:35 Ceftaroline Fosamil 300 mg/ (Sodium Chloride) 100 mls @ 200 mls/hr IV Q12H [facility] Stop: 05/06/23 04:59 Last Admin: 05/06/22 05:28 Dose: 200 mls/hr Sodium Bicarbonate 150 meq/ (Sterile Water) 1,150 mls @ 100 mls/hr IV .[id number] [facility] Stop: 05/07/22 10:29 Last Admin: 05/06/22 12:58 Dose: 100 mls/hr Insulin Aspart (Insulin Aspart 300 Units/3 Ml Insuln.Pen) 0 units SUBCUT TID.WM.HS [facility]; Protocol Stop: 05/05/23 16:59 Last Admin: 05/06/22 12:58 Dose: Not Given Insulin Glargine (Insulin Glargine 300 Units/3 Ml Insuln.Pen) 16 units SUBCUT QAM [facility] Stop: 05/06/23 08:59 Last Admin: 05/06/22 08:26 Dose: Not Given Isosorbide Dinitrate (Isosorbide Dinitrate 10 Mg Tablet) 10 mg PO TID [facility] Stop: 05/05/23 21:59 Last Admin: 05/06/22 14:46 Dose: 10 mg Levothyroxine Sodium (Levothyroxine 100 Mcg Tablet) 100 mcg PO DAILY@0630 [facility] Stop: 05/06/23 06:29 Last Admin: 05/06/22 05:30 Dose: 100 mcg Multivitamins (Multivitamin 1 Tab Tablet) 1 tab PO DAILY [facility] Stop: 05/06/23 08:59 Last Admin: 05/06/22 08:26 Dose: 1 tab Nifedipine (Nifedipine Er.24hr 30 Mg Tab.Er.24) 30 mg PO BID [facility] Stop: 05/05/23 20:59 Last Admin: 05/06/22 08:26 Dose: 30 mg Ondansetron HCl (Ondansetron 4 Mg/2 Ml Vial) 4 mg IV-PUSH Q6H PRN PRN Reason: Nausea And Vomiting Stop: 05/05/23 16:35 Pantoprazole Sodium (Pantoprazole 40 Mg Tablet.Dr) 40 mg PO DAILY [facility] Stop: 05/06/23 08:59 Last Admin: 05/06/22 08:26 [...] (1,000 Units) Tablet) 50 mcg PO DAILY [facility] Stop: 05/06/23 08:59 Last Admin: 05/06/22 08:26 [...] AST 28, ALT 23, Alkaline Phosphatase 137 H,Total Protein 6.3, Albumin 2.2 L, Globulin 4.1, Albumin/Globulin Ratio 0.5 05/06/22 05:01: PT 16.0 H, INR 1.4, APTT 38.6 H 05/06/22 05:01: Corrected WBC 11.5 H, Uncorrected WBC Count 11.5 H, RBC 3.44 L, Hgb 9.3 L, Hct 28.6L, MCV 83.4 L, MCH 27.1 L, MCHC 32.5, RDW 14.6, Plt Count 162, MPV 9.7, Neut % (Auto) 89.9, Lymph %(Auto) 2.5, [place] % (Auto) 7.1, Eos % (Auto) 0.2, Baso % (Auto) 0.3, Nucleat RBC Rel Count 0.1, Neut# (Auto) 10.3 H, Lymph # (Auto) 0.3 L, [place] # (Auto) 0.8, Eos # (Auto) 0.0, [...] H, ALT 30, Alkaline Phosphatase 167 H, C- Reactive Prot, Quant 12.5 H, Total Protein 7.2, Albumin 2.6 L, Globulin 4.6, Albumin/Globulin Ratio 0.6 05/05/22 12:10: Corrected WBC 11.9 H, Uncorrected WBC Count 11.9 H, RBC 3.79 L, Hgb 10.4 L, Hct 31.8 L, MCV 83.9, MCH 27.5, MCHC 32.8, RDW 14.2, Plt Count 189, MPV 9.6, Neut % (Auto) 90.3, Lymph % (Auto) 3.2, [place] % (Auto) 6.3, Eos % (Auto)0.2, Baso % (Auto) 0.0, Nucleat RBC Rel Count 0.1, Neut # (Auto) 10.7 H, Lymph #(Auto) 0.4 L, [place] # (Auto) 0.8, Eos # (Auto) 0.0, [...] bleeding, infection, catheter malfunction, inadequate dialysis with peritonealdialysis were discussed. Timing of the surgery will be pending management of his diabetic foot ulcer. Ideally, the procedurewould be performed when there are no other active infections. Documented By: Sohan Kellogg MD 05/06/22 0992 Signed By: <Electronically signed by MD Sohan Kellogg> 05/06/22 [facility] Work Phone: [phone] Consult note Author Yvonne Barboza [facility] May 06, 2022 11:39amNote Date/TimeFebruary 2022 11:33[place] [address] Nephrology Consult Note Signed Patient: Gopal Yates Jr MR#: [id number] : 1965 Acct:[id number] Age/Sex: 56 / M Adm Date: 3 Loc: N Room: [address] [place] [address] Type: ADM IN Attending Dr: Cornelio Simon MD Copies to: MD Douglas Kraus MD Frederick E Doamekpor, MD~ Providers Consult Date: 05/06/22 Requesting Provider: Cornelio Simon MD Primary Care Provider: Douglas Juárez MD [facility] Reason for Consult: CKD and metabolic acidosis management. 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 Patient was taking oral antibiotics but despite that he has no improvement in his wound. Patient alsohas advanced CKD due to the diabetic kidney disease and hypertensive nephrosclerosis. [facility] and his renal function has been declining due to progression of CKD. Hewas referred to Dr. Kellogg for peritoneal dialysis [...] subcutaneous solution (Lantus U-100 Insulin) See RxInstructions .Route.COMPLEX 05/05/22 [History Confirmed 05/05/22] isosorbide dinitrate 10 [...] 81 Mg Tablet.) 81 mg PO DAILY [facility] Stop: 05/06/23 08:59 Last Admin: 05/06/22 08:25 Dose: 81 mg Bumetanide (Bumetanide 2 Mg Tablet) 2 mg PO DAILY [facility] Stop: 05/06/23 08:59 Last Admin: 05/06/22 08:26 Dose: 2 mg Carvedilol (Carvedilol 12.5 Mg Tablet) 25 mg PO BID [facility] Stop: 05/05/23 20:59 Last Admin: 05/06/22 08:26 Dose: 25 mg Clopidogrel Bisulfate (Clopidogrel Bisulfate 75 Mg Tablet) 75 mg PO DAILY [facility] Stop: 05/06/23 08:59 Last Admin: 05/06/22 08:26 Dose: 75 mg Dextrose (Dextrose 50% In Water 25 Gm/50 Ml Syringe) 0 gm IV-PUSH PRN PRN PRN Reason: Hypoglycemia Stop: 05/05/23 16:33 Ezetimibe (Ezetimibe 10 Mg Tablet) 10 mg PO DAILY [facility] Stop: 05/06/23 08:59 Last Admin: 05/06/22 08:26 Dose: 10 mg Ferrous Sulfate (Ferrous Sulfate 324 Mg Tablet.Dr) 324 mg PO DAILY [facility] Stop: 05/06/23 08:59 Last Admin: 05/06/22 08:25 Dose: 324 mg Glucose (Dextrose 40% Gel 15 Gm Tube) 0 gm PO PRN PRN PRN Reason: Hypoglycemia Stop: 05/05/23 16:33 Heparin Sodium (Porcine) (Heparin 5,000 Unit/Ml Vial) 5,000 unit SUBCUT Q8HR [facility] Stop: 05/06/23 21:59 Hydralazine HCl (Hydralazine 50 Mg Tablet) 50 mg PO TID [facility] Stop: 05/05/23 21:59 Last Admin: 05/06/22 08:26 Dose: 50 mg Magnesium Sulfate (Magnesium Sulf 2gm-*Swfi*) 2 gm in 50 mls @ 25 mls/hr IV DAILY PRN PRN Reason: Magnesium Level < 1.7 Stop: 05/05/23 16:35 Ceftaroline Fosamil 300 mg/ (Sodium Chloride) 100 mls @ 200 mls/hr IV Q12H [facility] Stop: 05/06/23 04:59 Last Admin: 05/06/22 05:28 Dose: 200 mls/hr Sodium Bicarbonate 150 meq/ (Sterile Water) 1,150 mls @ 100 mls/hr IV .[id number] [facility] Stop: 05/07/22 10:29 Insulin Aspart (Insulin Aspart 300 Units/3 Ml Insuln.Pen) 0 units SUBCUT TID.WM.HS [facility]; Protocol Stop: 05/05/23 16:59 Last Admin: 05/06/22 08:25 Dose: Not Given Insulin Glargine (Insulin Glargine 300 Units/3 Ml Insuln.Pen) 16 units SUBCUT QAM [facility] Stop: 05/06/23 08:59 Last Admin: 05/06/22 08:26 Dose: Not Given Isosorbide Dinitrate (Isosorbide Dinitrate 10 Mg Tablet) 10 mg PO TID [facility] Stop: 05/05/23 21:59 Last Admin: 05/06/22 08:26 Dose: 10 mg Levothyroxine Sodium (Levothyroxine 100 Mcg Tablet) 100 mcg PO DAILY@0630 [facility] Stop: 05/06/23 06:29 Last Admin: 05/06/22 05:30 Dose: 100 mcg Multivitamins (Multivitamin 1 Tab Tablet) 1 tab PO DAILY [facility] Stop: 05/06/23 08:59 Last Admin: 05/06/22 08:26 Dose: 1 tab Nifedipine (Nifedipine Er.24hr 30 Mg Tab.Er.24) 30 mg PO BID [facility] Stop: 05/05/23 20:59 Last Admin: 05/06/22 08:26 Dose: 30 mg Ondansetron HCl (Ondansetron 4 Mg/2 Ml Vial) 4 mg IV-PUSH Q6H PRN PRN Reason: Nausea And Vomiting Stop: 05/05/23 16:35 Pantoprazole Sodium (Pantoprazole 40 Mg Tablet.Dr) 40 mg PO DAILY [facility] Stop: 05/06/23 08:59 Last Admin: 05/06/22 08:26 [...] visible mass Skin: No rashes or bruises [employer] WORK[employer]: Awake,Alert, 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 Musculoskeletal: No joint [...] Nathan Estes M.D.05/05/2022 12:26 PM Dictation Location: [place] [address] Foot MRI 05/05/22 16:41 IMPRESSION: SLIGHT LIMITED STUDY DUE TO MOTION AND ABSENCE OF CONTRAST. SIGNAL CHANGES INVOLVING THE FIFTH METATARSAL AND PROXIMAL PHALANX OF THE FIFTH TOE, SUSPICIOUS FOROSTEOMYELITIS GIVEN THE PRESENCE OF AN ADJACENT SKIN ULCER. Impression dictated by: Tana Perry M.D.05/06/2022 8:46 AM Dictation Location: [place] [address] Any impression(s) listed above is documentation that [...] Please feel free to call us with anyquestion. Plan of care was discussed in detail with the patient and the at the bedside. Documented By: Yvonne Barboza MD 05/06/22 1127 Signed By: <Electronically signed by Yvonne Barboza MD> 05/06/22 0545 [facility] Work Phone: [phone] Consult note Author Ashutosh Thomas [facility] May 06, 2022 11:35amNote Date/TimeFebruary 2022 11:[place] [id number] Infect. Disease Consult Note Signed Patient: Gopal Yates Jr MR#: [id number] : 1965 Acct:[id number] Age/Sex: 56 / M Adm Date: 3 Loc: Room: [address] [place] [address] Type: ADM IN Attending Dr: Cornelio Simon MD Copies to: MD Cornelio Mahoney MD Michael S Blank, MD~ HPI Data of Consult Consult date: 05/06/22 Requesting Physician: Cornelio Simon MD Primary Care Provider: Douglas Juárez MD Consult Narrative History of present illness: Mr. 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 Patient apparently had a callus on this [...] disease and giventhis concern he came to [facility] to be further evaluated. MRI was performed [...] negative unless noted below or in HPI [facility] Attestation Statement: The following information was validated [...] Tablet) 10 mg PO DAILY [facility] Stop: 05/06/23 08:59 Last Admin: 05/06/22 08:26 Dose: 10 mg Ferrous Sulfate (Ferrous Sulfate 324 Mg Tablet.) 324 mg PO DAILY [facility] Stop: 05/06/23 08:59 Last Admin: 05/06/22 08:25 Dose: 324 mg Glucose (Dextrose 40% Gel 15 Gm Tube) 0 gm PO PRN PRN PRN Reason: Hypoglycemia Stop: 05/05/23 16:33 Heparin Sodium (Porcine) (Heparin 5,000 Unit/Ml Vial) 5,000 unit SUBCUT Q8HR [facility] Stop: 05/06/23 21:59 Hydralazine HCl (Hydralazine 50 Mg Tablet) 50 mg PO TID [facility] Stop: 05/05/23 21:59 Last Admin: 05/06/22 08:26 Dose: 50 mg Magnesium Sulfate (Magnesium Sulf 2gm-*Swfi*) 2 gm in 50 mls @ 25 mls/hr IV DAILY PRN PRN Reason: Magnesium Level < 1.7 Stop: 05/05/23 16:35 Ceftaroline Fosamil 300 mg/ (Sodium Chloride) 100 mls @ 200 mls/hr IV Q12H [facility] Stop: 05/06/23 04:59 Last Admin: 05/06/22 05:28 Dose: 200 mls/hr Sodium Bicarbonate 150 meq/ (Sterile Water) 1,150 mls @ 100 mls/hr IV .[id number] [facility] Stop: 05/07/22 10:29 Insulin Aspart (Insulin Aspart 300 Units/3 Ml Insuln.Pen) 0 units SUBCUT TID.WM.HS [facility]; Protocol Stop: 05/05/23 16:59 Last Admin: 05/06/22 08:25 Dose: Not Given Insulin Glargine (Insulin Glargine 300 Units/3 Ml Insuln.Pen) 16 units SUBCUT QAM [facility] Stop: 05/06/23 08:59 Last Admin: 05/06/22 08:26 Dose: Not Given Isosorbide Dinitrate (Isosorbide Dinitrate 10 Mg Tablet) 10 mg PO TID [facility] Stop: 05/05/23 21:59 Last Admin: 05/06/22 08:26 Dose: 10 mg Levothyroxine Sodium (Levothyroxine 100 Mcg Tablet) 100 mcg PO DAILY@0630 [facility] Stop: 05/06/23 06:29 Last Admin: 05/06/22 05:30 Dose: 100 mcg Multivitamins (Multivitamin 1 Tab Tablet) 1 tab PO DAILY [facility] Stop: 05/06/23 08:59 Last Admin: 05/06/22 08:26 Dose: 1 tab Nifedipine (Nifedipine Er.24hr 30 Mg Tab.Er.24) 30 mg PO BID [facility] Stop: 05/05/23 20:59 Last Admin: 05/06/22 08:26 Dose: 30 mg Ondansetron HCl (Ondansetron 4 Mg/2 Ml Vial) 4 mg IV-PUSH Q6H PRN PRN Reason: Nausea And Vomiting Stop: 05/05/23 16:35 Pantoprazole Sodium (Pantoprazole 40 Mg Tablet.Dr) 40 mg PO DAILY [facility] Stop: 05/06/23 08:59 Last Admin: 05/06/22 08:26 [...] (1,000 Units) Tablet) 50 mcg PO DAILY [facility] Stop: 05/06/23 08:59 Last Admin: 05/06/22 08:26 [...] PROXIMAL PHALANX OF THE FIFTH TOE, SUSPICIOUS FOROSTEOMYELITIS GIVEN THE PRESENCE OF AN ADJACENT SKIN ULCER. A&P - Infectious Disease (1) Diabetic foot ulcer with osteomyelitis: Status: Acute (2) Type 2 diabetes mellitus with diabetic chronic kidney disease: Status: Acute Plan No cultures apparently done at [place]. Cultures here are pending. Given patient's creatinine clearance agree with Teflaro for now empirically while we await culture results. Podiatry to see the patient and determine surgical plan. Length and route of antibiotics to be determined after surgical intervention. 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 Patient notes that he has had a callus for long period of time, approximately years, on the lateral aspect of his right foot distally. He notes that approximately 3 weeks ago, he had anopening of the callus and there was an ulcer that developed. He has minimal sensation in the foot and did not have a lot of pain or discomfort. He brought this to the attention of his primary carephys angel, who recommended a topical treatment, but wound worsened. He then presented to Dr. Riveraof podiatry, and patient has been maintained on doxycycline and Keflex as an outpatient and [facility]. Patient was following up with Dr. Rivera in clinic on the day of hospitalization, and was sent into the emergency department due to worsening of the ulcer. Of note, patient with worsening renalfunction chronically and is currently being worked up for peritoneal dialysis. He was to have evaluation with Dr. Kelolgg on 05/11/2022 for peritoneal dialysis catheter placement. He was recommended to come to [facility] due to nephrology supp ort perioperatively. In the emergency department, patient had [...] being in the MRI machine when coming toassess him. Review of Systems Review of Systems [...] subcutaneous solution (Lantus U-100 Insulin) See RxInstructions .Route.COMPLEX 05/05/22 [History Confirmed 05/05/22] isosorbide dinitrate 10 [...] % (Auto) 2.5 % (.) 05/06/22 05:01 [place] % (Auto) 7.1 % (.) 05/06/22 05:01 Eos % (Auto) 0.2 % (.) 05/06/22 05:01 Baso % (Auto) 0.3 % (.) 05/06/22 05:01 Nucleat RBC Rel Count 0.1 /100 WBC (0-0.5) 05/06/22 05:01 Neut # (Auto) 10.3 x10E3/uL (1.8-7.7) H 05/06/22 05:01 Lymph # (Auto) 0.3 x10E3/uL (1.00-4.8) L 05/06/22 05:01 [place] # (Auto) 0.8 x10E3/uL (0.0-0.8) 05/06/22 05:01 [...] Diabetic foot ulcer 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 Patient did spike fever overnight and does have borderline elevated WBC. ESR and CRP are elevated. MRI was performed yesterday and does confirm evidence of osteomyelitis on the fifth metatarsal. Patient normally follows up with Dr. Rivera at [facility], but I am informed that Dr. Griggs willbe taking over the case. -Continue IV Teflaro, [...] their recommendations -Continue Bumex CAD status post HI/stent x1 HFpEF Hyperlipidemia Hypertension Patient has no [...] code Documented By: Cornelio Simon MD 3 0947 Signed By: <Electronically signed by Cornelio Simon MD> 05/06/22 1034 [facility] Work Phone: 1(350) 101-872902-14-2023 NotePROCEDURE: XR FOOT RT MIN 3 VIEWS [...] authenticated by: FIDEL GONGORA Date: 2022-05-05 07:29[facility]01-26-2023 NoteHNO ID: [id number] Author: Monik Dotson APRN.[employer] Service: ? Author Type: Nurse Practitioner Type: Progress Notes Filed: 04/16/2022 3:56 PM Note Text: NAME: Gopal Yates CLINIC NO.: [id number] DATE OF SERVICE: April 16, 2022 (Imer) Some elements in this clinic note that are critical to medical decision making have been carefully reviewed and included from a prior clinic note dated: February 18, 2022. (Dr. Rojas) Referring Provider: Dr. Douglas Juárez Additional Clinicians involved in Gopal Yates JR's care: DIAGNOSIS: Elevated [place]: Lambda light chains CKD induced anemia ASSESSMENT: [...] bruising. 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 Overall, he is doing [...] completed 5 doses of [place] [facility] Initial Visit, October 02, 2021: Gopal Yates [...] daily with breakfast. hydrALAZIN (more content not included)...[facility]01-26-2023 History of Present illness Narrative* Monik Dotson APRN.[facility] - 04/16/2022 2:56 PM EST Images from the original note were not included. NAME: Gopal Yates CLINIC NO.: [id number] DATE OF SERVICE: April 16, 2022 (Imer) Some elements in this clinic note that are critical to medical decision making have been carefully reviewed and included from a prior clinic note dated: February 18, 2022. (Dr. Rojas) Referring Provider: Dr. 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 Overall, he is doing [...] completed 5 doses of IV iron [place] [facility] Initial Visit, October 02, 2021: Gopal Yates [...] disease Father Mental illness Father Monik Dotson APRN.[facility] Hematology and Oncology Services Provided at: [place], [place] CC: Dr. Douglas Juárez [address] [facility] [address] I spent a total of 30 minutes on the date of the service which included preparing to see the patient, [id number] patient care, completing clinical documentation, obtaining and/or reviewing separately obtained history, performing a medically appropriate examination, counseling and educating the pat ient/family/caregiver, ordering medications, tests, or procedures, independently interpreting results (not separately reported), and communicating results to the patient/family/caregiver. documented in [facility] Evaluation note* Encounter Date Diagnosis Assessment Notes Treatment Notes Treatment Clinical Notes Mar, CKD (chronic kidney disease) stage 4, GFR 15-29 ml/min (ICD-10 - N18.4) [employer] Other [id number] Evaluation note* Encounter Date Diagnosis Assessment Notes [...] No fluid overload. 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 Continue Bumex 2 mg once daily Patient opted for PD. Will refer patient to general surgeon for PD catheter placement next visit ifGFR continues to be < 15 ml/min with further decrease in appetite and weight Avoid NSAIDs Follow-up with the patient in 6 weeks Mar,Hypertensive chronic kidney disease w stg 1-4/unsp chr kdny (ICD-10 - I12.9)Blood pressure is controlled on medications . No medication changes needed Mar,iabetic nephropathy (ICD-10 - E11.21)Hemoglobin A1c target below 7% . DM has been well controlled. patient has significant proteinuria Mar,AD (coronary artery disease) (ICD-10 - I25.10)Patient was informed that ejection fraction around 40 to 45%. He has normal chest pain status post P CI of RCA at in 2019. Mar,nemia of renal disease (ICD-10 - D63.1)patient received 2 loading doses of venofer last year. Iron storage this visit is adequate. VB12 and folate are Ok. . patient is currently on CAROL . follows with oncology clinic . last HGB > 10 g/dl Mar,Hyperparathyroidism (ICD-10 - E21.3)PTH is slightly high. no need for active VD Mar,Vitamin D deficiency (ICD-10 - E55.9)I asked the patient to take OTC VD 2000 U daily [employer] Other 11-30-2022 NoteHNO ID: [id number] Author: Conrad Rojas MD Service: ? Author Type: Physician Type: Progress Notes Filed: 02/21/2022 5:24 PM Note Text: NAME: Gopal Yates CLINIC NO.: [id number] DATE OF SERVICE: February 18, 2022 (Latricia) Some elements in this clinic note that are critical to medical decision making have been carefully reviewed and included from a prior clinic note dated:January 14, 2022 (Imer) Referring Provider: Dr. Douglas Juárez Additional Clinicians involved in Gopal Yates JR's care: DIAGNOSIS: Elevated [place]: Lambda light chains CKD induced anemia ASSESSMENT: [...] bruising. 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 Overall, he is doing [...] completed 5 doses of IV [place] [facility] Initial Visit, October 02, 2021: Gopal Yates [...] by mouth once d (more content not included)...[facility]10-26-2022 NoteHNO ID: [id number] Author: Monik Dotson APRN.AILYN Service: ? Author Type: Nurse Practitioner Type: Progress Notes Filed: 01/16/2022 4:13 PM Note Text: NAME: Gopal Yates CLINIC NO.: [id number] DATE OF SERVICE: January 14, 2022 (Imer) [...] possible Aranesp. (Delay 1 week due to ) 3. Will obtain records from [facility] mainly interested in IV Iron dates. CURRENT [...] bruising. 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 Overall, he is doing [...] completed 5 doses of IV iron at [facility] Initial Visit, October 02, 2021: Gopal Yates [...] twice daily with meals. /2 tabstwice daily ferrous sulfate 325 mg (65 [...] (%) Date Value 12/21 (more content not included)...[facility]10-26-2022 Nurse Note* Harriet Childress MA - 01/14/2022 2:24 PM EDT Patient states he is tired and cold all the time. He states that the infusions don't seem to help but the shot he gets here does. Harriet Childress MA documented in this encounterCleveland [facility]10-[facility] History of Present illness Narrative* Monik Dotson APRN.AILYN - 01/14/2022 2:05 PM EDT Images from the original note were not included. NAME: Gopal Yates [facility] NO.: [id number] DATE OF SERVICE: January 14, 2022 (Imer) [...] to Holiday) 3. Will obtain records from [facility] [place] interested in IV Iron dates. CURRENT [...] abnormal bruising.He is scheduled to see his geometry teacher in March 2022. Overall, he is doing [...] completed 5 doses of IV iron [place] [facility] Initial Visit, October 02, 2021: Gopal Yates [...] APRN.AILYN Hematology and Oncology Services Provided at: [place], [place] CC: Dr. Douglas Juárez [address] [facility] [address] [address] Douglas Juárez [address] [facility] [address] documented in this encounterCleveland Clinic [facility]10-11-2022 Evaluation note* Encounter Date Diagnosis Assessment Notes Treatment Notes Treatment Clinical Notes Dec, Iron deficiency anemia (ICD-10 - D50.9) reviewed recent labs with patient. patient is encouraged to continue to follow with [facility] Dr. do not need to proceed with Colon at this time. Dec,hlegm in throat (ICD-10 - R09.89)patient states Mucinex oes seem to help this we will refer to pulmonology. [employer] Other 09-28-2022 NoteHNO ID: [id number] Author: Conrad Rojas MD Service: ? Author Type: Physician Type: Progress Notes Filed: 12/17/2021 4:03 PM Note Text: NAME: Gopal Yates CLINIC NO.: [id number] DATE OF SERVICE: December 17, 2021 (Latricia) Some elements in this clinic note that are critical to medical decision making have been carefully reviewed and included from a prior clinic note dated: December 03, 2021 (Imer) Referring Provider: Dr. Douglas Juárez Additional Clinicians involved in Gopal Cheungsey 's care: DIAGNOSIS: Elevated Matt:Lambda light chains CKD induced anemia ASSESSMENT: 56 year old gentleman with longstanding and poorly controlled T2DM and HTN with renal failure. CKD induced anemia underwent lab workup for possible underlying primary marrow conditions that were negative. PLAN: 1. No Aranesp today. 2. Follow up in weeks for labs and possible Aranesp. 3. Will obtain records from [facility] [place] interested in IV Iron dates. CURRENT [...] completed 5 doses of IV iron at [facility]. Initial Visit, October 02, 2021: Gopal Yates [...] mellitus (HCC) Edema Hypothyroidism (more content not included)...[facility] 12-17-2021 Instructions* Patient Instructions* Conrad Rojas MD - 12/17/2021 2:37 PM EDT 1. No Aranesp today. 2. Follow up in weeks for labs and possible Aranesp. documented in this encounterCleveland Clinic [facility]09-28-2022 History of Present illness Narrative* Conrad Rojas MD - 12/17/2021 2:33 PM EDT Images from the original note were not included. NAME: Gopal Yates [facility] NO.: [id number] DATE OF SERVICE: December 17, 2021 (Latricia) [...] possible Aranesp. 3. Will obtain records from [facility] [place] interested in IV Iron dates. CURRENT [...] completed 5 doses of IV iron at [facility]. Initial Visit, October 02, 2021: Gopal Yates [...] which included preparing to see the patient, [id number] patient care, completing clinical documentation, performing a medically appropriate examination, counseling and educating the patient/family/caregiver, and ordering medications, tests,or procedures. Conrad Rojas MD, CPE Hematology and Oncology Services Provided at: [place], [place] CC: Dr. Douglas Juárez [id number] Douglas Juárez [address] [facility] [address] documented in this encounterCleveland Clinic [facility]09-20-2022 Evaluation note* Encounter Date Diagnosis Assessment Notes Treatment Notes Treatment Clinical Notes Nov, CKD (chronic kidney disease) stage 4, GFR 15-29 ml/min (ICD-10 - N18.4) He has advanced CKD stage IV . CKD is likely from diabetic s and cardiorenal syndrome. Serum creatinine has been around 3.5-3.9 mg/dl. GFR this visit 17 ml/min no ileana uremic symptoms . 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 Continue Bumex 2 mg once daily I discussed the option of PD versus hemodialysis. Patient opted for PD Avoid NSAIDs Follow-up with the patient in 4 months Nov,Hypertensive chronic kidney disease w stg 1-4/unsp chr kdny (ICD-10 - I12.9)Blood pressure is controlled on medications . No medication changes needed Nov,Metabolic acidosis (ICD-10 - E87.2)Last Serum bicarb 22. On HC03 tabs. Will continue same dose Nov,iabetic nephropathy (ICD-10 - E11.21)Patient states that her diabetes is better controlled since he started on insulin. Hemoglobin A1c target below 7% . Nov,AD (coronary artery disease) (ICD-10 - I25.10)Patient was informed that ejection fraction around 40 to 45%. He has normal chest pain status post P CI of RCA at [facility] in 2019. Nov,nemia of renal disease (ICD-10 - D63.1)patient received 2 loading doses of venofer in the last 2 visits. patient is currently on CAROL . last HGB > 11 g/dl Nov,therI will check CBC next visit along with iron storage [employer] Other [id number] Miscellaneous Notes* Telephone Encounter - Monik Dotson APRN.CNP - 12/04/2021 11:47 AM EDT Thanks! Monik Dotson APRN.ENTHONE SOLDER STRIPPER * Telephone Encounter - Dana An - 12/04/2021 10:15 AM EDT Brionna from [facility] infusion center called back regarding patients iron infusions. She said he got 2 sets of 5 doses. Dates of infusion are: 07/22/21, 07/31/21, 08/06/21, 08/13/21, 08/20/21 10/20/21, 10/27/21, 11/03/21, 11/10/21, 11/17/21 documented in this encounterCleveland Clinic [facility]09-14-2022 NoteHNO ID: [id number] Author: Monik Dotson APRN.ENTHONE SOLDER STRIPPER Service: ? Author Type: Nurse Practitioner Type: Progress Notes Filed: 12/03/2021 2:17 PM Note Text: NAME: Gopal Yates [facility] NO.: [id number] DATE OF SERVICE: December 03, 2021 Referring Provider: Dr. Douglas Juárez (Elements copied from Dr. Rojas note dated October 02, 2021, have been reviewed and updated where appropriate, and all reflect current assessment and medical decision making during today's encounter, December 03, 2021) Additional Clinicians involved in Gopal Cheungsey 's care: DIAGNOSIS: Elevated Matt:Lambda light chains [...] possible Aranesp. 3. Will obtain records from [facility] [place] interested in IV Iron dates. CURRENT [...] completed 5 doses of IV iron at [facility]. Initial Visit, October 02, 2021: Gopal Yates [...] Topics Alcohol use: Not (more content not included)...[facility] 12-03-2021 History of Present illness Narrative* Monik Dotson APRN.ENTHONE SOLDER STRIPPER - 12/03/2021 2:00 PM EDT Images from the original note were not included. NAME: Gopal Yates [facility] NO.: [id number] DATE OF SERVICE: December 03, 2021 Referring Provider: Dr. Douglas Juárez (Elements copied from Dr. Rojas note dated October 02, 2021, have been reviewed and updated where appropriate, and all reflect current assessment and medical decision making during today's encounter, December 03, 2021) Additional Clinicians involved in Gopal Cheungsey 's care: DIAGNOSIS: Elevated Matt:Lambda light chains [...] possible Aranesp. 3. Will obtain records from [facility] [place] interested in IV Iron dates. CURRENT [...] completed 5 doses of IV iron at [facility]. Initial Visit, October 02, 2021: Gopal Yates [...] APRN.CNP Hematology and Oncology Services Provided at: [place], [place] CC: Dr. Douglas Juárez [address] [place] [address] Dr. Douglas Juárez [address] [place] [address] documented in this encounterCleveland Clinic [facility]07-28-2022 NoteHNO ID: [id number] Author: Conrad Rojas MD Service: ? Author [...] KELLY Hematology and Oncology Services Provided at: [place], [place] CC: Douglas Juárez MD [facility] [address]TpziifierK[facility]07-28-2022 History of Present illness Narrative* Conrad Rojas [...] KELLY Hematology and Oncology Services Provided at: [place], [place] CC: Douglas Juárez MD [address] [place] [id number] documented in this encounterCleveland Clinic [facility]07-14-2022 NoteHNO ID: [id number] Author: Conrad Rojas MD Service: ? Author Type: Physician Type: Progress Notes Filed: 10/08/2021 9:04 PM Note Text: NAME: Gopal Yates [facility] NO.: [id number] DATE OF SERVICE: October 02, 2021 Referring [...] Date Value 10/02/2021 0.00 (more content not included)...[facility]07-14-2022 History of Present illness Narrative* Conrad Rojas MD - 10/02/2021 4:00 PM EDT Images from the original note were not included. NAME: Gopal Yates [facility] NO.: [id number] DATE OF SERVICE: October 02, 2021 Referring [...] URIC ACID BLOOD, CALCIUM IONIZED BLOOD, ERYTHROPOIETIN/EPO, KAPPA/GARDNRE,FREE,SER, IRON + TIBC, FERRITIN BLD, VITAMIN B12 [...] which included preparing to see the patient, [id number] patient care, completing clinical documentation, obtaining and/or reviewing separately obtained history, performing a medically appropriate examination, counseling and educating the pat ient/family/caregiver and ordering medications, tests, or procedures. Conrad Rojas MD, CPE Hematology and Oncology Services Provided at: [place], [place] CC: Douglas Juárez MD [address] [address] Douglas Juárez MD, MD [address] [id number] documented in this encounterCleveland Clinic [facility]07-06-2022 Evaluation note* Encounter Date Diagnosis Assessment Notes Treatment Notes Treatment Clinical Notes Sep, CKD (chronic kidney disease) stage 4, GFR 15-29 ml/min (ICD-10 - N18.4) He has advanced CKD stage IV . CKD is likely from diabetic s and cardiorenal syndrome. Serum creatinine has been around 3.5-3.9 mg/dl. GFR this visit 16 ml/min no ileana uremic symptoms . No need for urgent technician biological health DM is well contrlled Volume is well controlled. Continue Bumex 2 mg once daily I discussed the option of PD versus hemodialysis. Patient opted for PD Avoid NSAIDs Follow-up with the patient in 2 months Sep,Hypertensive chronic kidney disease w stg 1-4/unsp chr kdny (ICD-10 - I12.9)Blood pressure is controlled on medications . No medication changes needed Sep,Metabolic acidosis (ICD-10 - E87.2)Serum bicarb 22. No need for sodium bicarb Sep,iabetic nephropathy (ICD-10 - E11.21)Patient states that her diabetes is better controlled since he started on insulin. Hemoglobin A1c target below 7% Sep, (coronary artery disease) (ICD-10 - I25.10)Patient was informed that ejection fraction around 40 to 45%. He has normal chest pain status post P CI of RCA at [facility] in 2019. Sep,nemia of renal disease (ICD-10 - D63.1)Hemoglobin remains below 9 g/dL. Patient remains iron deficient despite loading dose of Venofer. I will repeat Venofer loading dose. We will start working with insurance for CAROL approval. Patient will be started on Retacrit 20,000 unit monthly for now once he approved by the insurance. I will askedthe patient to see GI clinic to rule out GI bleed Sep,therI will check CBC next visit along with iron storage [employer] Other 04-26-2022 Evaluation note* Encounter Date Diagnosis [...] Follow-up with the patient in 2 months Jun,Hypertensive chronic kidney disease w stg 1-4/unsp chr kdny (ICD-10 - I12.9)Blood pressure is controlled on medications . No medication changes needed Jun,Metabolic acidosis (ICD-10 - E87.2)Serum bicarb 22. No need for sodium bicarb Jun,iabetic nephropathy (ICD-10 - E11.21)Patient states that her diabetes is better controlled since he started on insulin. Hemoglobin A1c target below 7% patient does not remember the last hemoglobin A1c Jun, (coronary artery disease) (ICD-10 - I25.10)Patient was informed that ejection fraction around 40 to 45%. He has normal chest pain status post P CI of RCA at [facility] in 2019. Jun,nemia of renal disease (ICD-10 - D63.1)Hemoglobin below g/dL. Iron saturation 23%. I will start the patient on Venofer 200 mg injection weekly for 4 weeks Jun,therI will check CBC next visit along with iron storage [employer] Other 03-15-2022 Evaluation note* Encounter Date Diagnosis [...] Follow-up with the patient in 6 weeks May,Hypertensive chronic kidney disease w stg 1-4/unsp chr kdny (ICD-10 - I12.9) Blood pressure is controlled on medications May,Metabolic acidosis (ICD-10 - E87.2) Acidosis is improved with CO2 up to 26 mmol/L on sodium bicarbonate. May,iabetic nephropathy (ICD-10 - E11.21) Patient states that her diabetes is better controlled since he started on insulin. May,AD (coronary artery disease) (ICD-10 - I25.10) Patient was informed that ejection fraction around 40 to 45%. He has normal chest pain status post PCI of RCA at [facility] in 2019. May,nemia of renal disease (ICD-10 - D63.1) Patient has anemia on oral iron. No CBC is available. Will order CBC with next blood work. May,therI will check CBC next visit along with iron storage [employer] Other Consult note Author Ashutosh Thomas [facility] May 21, 2022 10:40amNote Date/TimeMarch 2022 10:04[place] [id number] Infect. Disease Consult Note Signed Patient: Gopal Yates Jr MR#: [id number] : 1965 Acct:[id number] Age/Sex: 56 / M Adm Date: 3 Loc: Room: [address] [place] [address] Type: ADM IN Attending Dr: Salvador Alonso [...] sent to the ED yesterday by his cemetery worker, Dr. Griggs, because his right foot wound continued to show signs of infection. The patient recently had resection ofhis right fifth digit on 05/07 and completed a 10-day course of Augmentin. The patient states that his wound continued to drain after the operation and that his cemetery worker has scheduled surgery for today. He continues on IV vancomycin, which was started in the ED. The patient has past medical history significant for CKD stage 5 for which he isscheduled to start dialysis and have a PD catheter placed next week, CAD post?HI, HFpEF, hypertension, hyperlipidemia, insulin-dependent T2DM, and hypothyroidism. [...] 2 Mg Tablet) 2 mg PO DAILY [facility] Stop: 05/21/23 08:59 Last Admin: 05/21/22 08:00 Dose: Not Given Carvedilol (Carvedilol 12.5 Mg Tablet) 37.5 mg PO BID.WITH.MEALS [facility] Stop: 05/20/23 16:59 Last Admin: 05/21/22 07:52 Dose: 37.5 mg Cyproheptadine HCl (Cyproheptadine 4 Mg Tablet) 4 mg PO DAILY [facility] Stop: 05/21/23 08:59 Last Admin: 05/21/22 08:00 Dose: Not Given Ezetimibe (Ezetimibe 10 Mg Tablet) 10 mg PO DAILY [facility] Stop: 05/21/23 08:59 Last Admin: 05/21/22 08:00 Dose: Not Given Hydralazine HCl (Hydralazine 50 Mg Tablet) 50 mg PO TID [facility] Stop: 05/20/23 13:59 Last Admin: 05/21/22 08:00 Dose: Not Given Sodium Chloride (0.9 % Sodium Chloride) 500 mls @ 20 mls/hr IV PROTOCOL PRN PRN Reason: BLOOD TRANSFUSION Stop: 05/22/22 08:32 Insulin Glargine (Insulin Glargine 300 Units/3 Ml Insuln.Pen) 16 units SUBCUT QAM [facility] Stop: 05/21/23 08:59 Last Admin: 05/21/22 08:00 Dose: Not Given Isosorbide Dinitrate (Isosorbide Dinitrate 10 Mg Tablet) 10 mg PO TID [facility] Stop: 05/20/23 13:59 Last Admin: 05/21/22 08:00 Dose: Not Given Levothyroxine Sodium (Levothyroxine 100 Mcg Tablet) 100 mcg PO DAILY@0630 [facility] Stop: 05/21/23 06:29 Last Admin: 05/21/22 06:20 Dose: 100 mcg Liothyronine Sodium (Liothyronine 5 Mcg Tablet) 10 mcg PO DAILY [facility] Stop: 05/21/23 08:59 Last Admin: 05/21/22 08:00 Dose: Not Given Multivitamins (Multivitamin 1 Tab Tablet) 1 tab PO DAILY [facility] Stop: 05/21/23 08:59 Last Admin: 05/21/22 08:00 Dose: Not Given Nifedipine (Nifedipine Er.24hr 30 Mg Tab.Er.24) 30 mg PO BID [facility] Stop: 05/20/23 20:59 Last Admin: 05/21/22 08:01 Dose: Not Given Ondansetron HCl (Ondansetron 4 Mg/2 Ml Vial) 4 mg IV-PUSH Q8H PRN PRN Reason: Nausea And Vomiting Stop: 05/20/23 13:39 Oxycodone HCl (Oxycodone Ir 5 Mg Tablet) 5 mg PO Q6H PRN PRN Reason: Pain Scale 4 - 7 Pantoprazole Sodium (Pantoprazole 40 Mg Tablet.Dr) 40 mg PO BID [facility] Stop: 05/20/23 20:59 Last Admin: 05/21/22 08:01 Dose: Not Given Potassium Chloride (Potassium Chloride Er 20 Meq Tab.Er.Prt) 40 meq PO DAILY PRN PRN Reason: Hypokalemia Stop: 05/20/23 13:39 Sodium Bicarbonate (Sodium Bicarbonate 650 Mg Tablet) 1,300 mg PO BID [facility] Stop: 05/20/23 20:59 Last Admin: 05/21/22 08:01 [...] signs of systemic infection. He has been afebrileduring the course of his stay. White blood [...] signed by MD Ashutosh Thomas> 05/21/22 1040 [facility] Work Phone: Consult note Author CWImelda Luis [facility] May 21, 2022 12:02pmNote Date/TimeMarch 2022 11:58[place] [address] Podiatry Consult Note Signed Patient: Gopal Yates Jr MR#: [id number] : 1965 Acct:[id number] Age/Sex: 56 / M Adm Date: 3 Loc: Room: [address] [place] [address] Type: ADM IN Attending Dr: Salvador Alonso [...] seen and treated in April by my partnerDr. Griggs who had performed partial amputation of [...] very complicated patient with multiple comorbidities that arebrought him to this level of pathology and surgery and will also obviously impair healing. He is lucas y pleasant individual with diabetes mellitus, neuropathy and [...] the lateral right foot required amputation of rightfifth toe and fifth metatarsal almost to the [...] distal revealed no significant amount of purulence thoughthere may be underlying abscess is not appreciated at this time please note MRI is pending. Radiology examination: X-ray 05-20-2022 reveals amputation obviously of the fifth toe and right fifthmetatarsal partial base is intact. Appears to be [...] definitely does not looksalvageable I would recommend amputationof right fourth toe. However please note MRI [...] pathologies as well as his needfor offloading rightfoot completely, elevation of right foot above heart [...] <Electronically signed by HARRY Luis> 05/21/22 1202 [facility] Work Phone: Consult note Author Cristobal Butts [facility] May 21, 2022 1:27pmNote Date/TimeMar2022 1:27pm[place] [address] Nephrology Consult Note Signed Patient: Gopal Yates Jr MR#: [id number] : 1965 Acct:[id number] Age/Sex: 56 / M Adm Date: 3 Loc: Room: [address] [place] [address] Type: ADM IN Attending Dr: Salvador Alonso MD Copies to: MD Cristobal Boles MD Douglas M Hoy, MD~ Providers Consult Date: 05/21/22 Requesting Provider: Salvador Alonso MD Primary Care Provider: Douglas Juárez MD HPI Reason for Consult: Chronic kidney disease stage V History of Present Illness: This is 56-year-old male patient with a past medical history of chronic kidney disease stage V fromdiabetic and hypertensive nephropathy follows with me in renal office. Coronary artery disease withhistory of myocardial infarction, heart failure with reduced ejection fraction, hyperlipidemia, insulin-dependent diabetes mellitus and hypothyroidism. Patient was referred to the hospital by his podiatric physician for worsening right lateral foot ulcer. Patient had recent partial fifth ray amputation of his right foot. Patient was discharged to finish antibiotics. Foot MRI from yesterday showededema in the head of the second metatarsal as well as the proximal and middle phalanx of the fourth digitsuspicious for osteomyelitis. Edema is also noted at the fourth transmetatarsaljunction suspicious for osteomyelitis. There is also marrow edema affecting thehead of the third metatarsal as wellas the proximal phalanx of the third digit [...] following with hematology clinic here in [facility] for CAROL injection. Patient missedher last appointment. Hemoglobin this morning 7.7 g [...] 12.5 Mg Tablet) 37.5 mg PO BID.WITH.MEALS [facility] Stop: 05/20/23 16:59 Last Admin: 05/21/22 07:52 Dose: 37.5 mg Cyproheptadine HCl (Cyproheptadine 4 Mg Tablet) 4 mg PO DAILY [facility] Stop: 05/21/23 08:59 Last Admin: 05/21/22 08:00 Dose: Not Given Ezetimibe (Ezetimibe 10 Mg Tablet) 10 mg PO DAILY [facility] Stop: 05/21/23 08:59 Last Admin: 05/21/22 08:00 Dose: Not Given Hydralazine HCl (Hydralazine 50 Mg Tablet) 50 mg PO TID [facility] Stop: 05/20/23 13:59 Last Admin: 05/21/22 08:00 Dose: Not Given Sodium Chloride (0.9 % Sodium Chloride) 500 mls @ 20 mls/hr IV PROTOCOL PRN PRN Reason: BLOOD TRANSFUSION Stop: 05/22/22 08:32 Piperacillin Sod/Tazobactam Sod (Zosyn 2.25gm) 2.25 gm in 100 mls @ 200 mls/hr IV Q6H [facility] Last Admin: 05/21/22 11:18 Dose: 200 mls/hr Insulin Glargine (Insulin Glargine 300 Units/3 Ml Insuln.Pen) 16 units SUBCUT QAM [facility] Stop: 05/21/23 08:59 Last Admin: 05/21/22 08:00 Dose: Not Given Isosorbide Dinitrate (Isosorbide Dinitrate 10 Mg Tablet) 10 mg PO TID [facility] Stop: 05/20/23 13:59 Last Admin: 05/21/22 08:00 Dose: Not Given Levothyroxine Sodium (Levothyroxine 100 Mcg Tablet) 100 mcg PO DAILY@0630 [facility] Stop: 05/21/23 06:29 Last Admin: 05/21/22 06:20 Dose: 100 mcg Liothyronine Sodium (Liothyronine 5 Mcg Tablet) 10 mcg PO DAILY [facility] Stop: 05/21/23 08:59 Last Admin: 05/21/22 08:00 Dose: Not Given Multivitamins (Multivitamin 1 Tab Tablet) 1 tab PO DAILY [facility] Stop: 05/21/23 08:59 Last Admin: 05/21/22 08:00 Dose: Not Given Nifedipine (Nifedipine Er.24hr 30 Mg Tab.Er.24) 30 mg PO BID [facility] Stop: 05/20/23 20:59 Last Admin: 05/21/22 08:01 Dose: Not Given Ondansetron HCl (Ondansetron 4 Mg/2 Ml Vial) 4 mg IV-PUSH Q8H PRN PRN Reason: Nausea And Vomiting Stop: 05/20/23 13:39 Oxycodone HCl (Oxycodone Ir 5 Mg Tablet) 5 mg PO Q6H PRN PRN Reason: Pain Scale 4 - 7 Pantoprazole Sodium (Pantoprazole 40 Mg Tablet.Dr) 40 mg PO BID [facility] Stop: 05/20/23 20:59 Last Admin: 05/21/22 08:01 Dose: Not Given Potassium Chloride (Potassium Chloride Er 20 Meq Tab.Er.Prt) 40 meq PO DAILY PRN PRN Reason: Hypokalemia Stop: 05/20/23 13:39 Sodium Bicarbonate (Sodium Bicarbonate 650 Mg Tablet) 1,300 mg PO BID [facility] Stop: 05/20/23 20:59 Last Admin: 05/21/22 08:01 [...] (1,000 Units) Tablet) 50 mcg PO DAILY [facility] Stop: 05/21/23 08:59 Last Admin: 05/21/22 08:00 [...] metatarsal as well as the proximal phalanx ofthe third digit suspicious for osteomyelitis. There is evidence of ulceration along the lateral soft tissues of the right footwith subcutaneous emphysema. There is also a fluid collection along the interspace between the heads of the third and fourth metatarsals suspicious for abscess formation. There is diffuse soft tissue swelling consistentwith cellulitis. There is edema throughout the intrinsic musculature suggesting myositis. Impression dictated by: Flynn Bradley M.D.05/21/2022 10:03 AM Dictation Location: [place] [address] Any impression(s) listed above is documentation that [...] following with hematology clinic here in [facility]. Patient missed the last appointment. 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 Patient recently was discharged from the hospital on 05/14/22, where he underwentpartial right fifthray amputation on the right foot and was discharged home on oral antibiotics. Patient had been following with podiatry who noted worsening Rfoot ulcer and was sent to ER. Imaging was suspicious for os teomyelitis and patient was admitted with infectious disease [...] had as it prompted 3 loose bowel movements.Since then he has not had no loose [...] % (Auto) 75.9, Lymph % (Auto) 9.2, [place] % (Auto) 10.5, Eos % (Auto) 3.4, Baso % (Auto) 1.0, Nucleat RBC Rel Count 0.0, Neut # (Auto) 5.8, Lymph # (Auto) 0.7 L, [place] # (Auto) 0.8, Eos # (Auto) 0.3, [...] PRN-- sterile antimicrobial dressing applied per protocol. Changestatlock with every dressing change. *Administer IV antibiotics [...] Patient Ordered By: Ashutosh Thomas Follow Up: [facility] [Outside] - 05/27/22 2:30 pm (For wound vac change, PICC line dressing change,and weekly labs) Sohan Kellogg MD [Active Staff] - 05/28/22 (PD Catheter Insertion scheduled forthe following date.) Ashutosh Thomas MD [Active Staff] - 06/29/22 [...] am (You have been scheduled for a followup appointment for the following date and time, please call to reschedule if needed.) Yvonne Barboza MD [Active Staff] - 06/03/22 3:40 pm (Previously scheduled appointment. ) Documented By: Scotty Kahn DO [id number] Signed By: <Electronically signed by Scotty Kahn DO> 05/25/22 1723 <Electronically signed by DO NADIR Velez> 05/25/22 1558 [facility] Work Phone: Evaluation + Plan note No data available for this section [facility] General [facility] [place] Evaluation note* Diagnosis Stage 3b chronic kidney disease (HCC)- Primary Anemia due to stage 3b chronic kidney disease (HCC) Elevated serum immunoglobulin free light chains Other nonspecific findings on examination of blood [facility] Diagnosis Anemia due to stage 3b chronic kidney disease (HCC)- Primary [facility] Diagnosis Anemia due to stage 3b chronic kidney disease (HCC)- Primary [facility]* Diagnosis Anemia due to stage 3b chronic kidney disease (HCC)- Primary [facility] noteNo assessment information available[facility] Work Phone: Evaluation note* Diagnosis Anemia due to stage 4 chronic kidney disease (HCC)- Primary [facility]* Diagnosis Anemia due to stage 4 chronic kidney disease (HCC)- Primary [facility] Diagnosis Anemia due to stage 3b chronic kidney disease (HCC)- Primary Hypothyroidism, unspecified type documented in this encounter [facility] note* Diagnosis Anemia due to stage 3b chronic kidney disease (HCC)- Primary documented in this encounter [facility] note* Diagnosis Anemia due to stage 3b chronic kidney disease (HCC)- Primary [facility]* Diagnosis Anemia due to stage 3b chronic kidney disease (HCC)- Primary Hypothyroidism, unspecified type [facility]* Diagnosis Onset Date Resolution Status Osteomyelitis acute [facility] Work Phone: Evaluation note* Diagnosis Onset Date Resolution Status Anemia of renal disease acuteCKD (chronic kidney disease) stage 5, GFR less than 15 ml/minacuteDiabetic foot ulcer with osteomyelitisacuteHypertensive kidney disease with chronic kidney disease stage VacuteMetabolic acidosisacuteOsteomyelitisacute Osteomyelitis of right footacuteType 2 diabetes mellitus with diabetic chronic kidney diseaseacuteUlcer of right foot with necrosis of boneacute [facility] Work Phone: Evaluation note* Diagnosis Onset Date Resolution Status Anemia of renal disease acuteCKD (chronic kidney disease) stage 5, GFR less than 15 ml/minacuteDiabetic foot ulcer with osteomyelitisacuteHypertensive kidney disease with chronic kidney disease stage VacuteMetabolic acidosisacuteOsteomyelitisacute Osteomyelitis of right footacuteType 2 diabetes mellitus with diabetic chronic kidney diseaseacuteUlcer of right foot with necrosis of boneacuteCKD (chronic kidney disease) stage 5, GFR less than 15 ml/minacuteDiabetic foot ulcer with osteomyelitisacuteHypertensive kidney disease with chronic kidney disease stage VacuteOsteomyelitis of right footacuteUlcer of right foot with necrosis of bone acute [facility] Work Phone: Evaluation note* Diagnosis Onset Date Resolution Status Anemia of renal disease acuteCKD (chronic kidney disease) stage 5, GFR less than 15 ml/minacuteDiabetic foot ulcer with osteomyelitisacuteHypertensive kidney disease with chronic kidney disease stage VacuteMetabolic acidosisacuteOsteomyelitisacute Osteomyelitis of right footacuteType 2 diabetes mellitus with diabetic chronic kidney diseaseacuteUlcer of right foot with necrosis of boneacuteAnemia of renal diseaseacuteCKD (chronic kidney disease) stage 5, GFR less than 15 ml/minacute Diabetes mellitus with diabetic neuropathyacuteDiabetic foot ulcer with osteomyelitisacuteHypertensive kidney disease with chronic kidney disease stage VacuteOsteomyelitis of right footacuteSurgical wound presentacuteType 2 diabetes mellitus with diabetic chronic kidney diseaseacuteUlcer of right foot with necrosis of boneacute [facility] Work Phone: Evaluation noteNo [facility] [employer] Other Evaluation note* Diagnosis Onset Date Resolution Status Anemia of renal disease acuteCKD (chronic kidney disease) stage 5, GFR less than 15 ml/minacuteDiabetic foot ulcer with osteomyelitisacuteHypertensive kidney disease with chronic kidney disease stage VacuteMetabolic acidosisacuteOsteomyelitisacute Osteomyelitis of right footacuteType 2 diabetes mellitus with diabetic chronic kidney diseaseacuteUlcer of right foot with necrosis of boneacuteAnemia of renal diseaseacuteCKD (chronic kidney disease) stage 5, GFR less than 15 ml/minacute Diabetes mellitus with diabetic neuropathyacuteDiabetic foot ulcer with osteomyelitisacuteHypertensive kidney disease with chronic kidney disease stage VacuteOsteomyelitis of right footacuteSurgical wound presentacuteType 2 diabetes mellitus with diabetic chronic kidney diseaseacuteUlcer of right foot with necrosis of boneacuteAKI (acute kidney injury)acuteAnemiaacuteCKD (chronic kidney disease) stage 5, GFR less than 15 ml/minacuteFeveracuteHistory of fever acuteOsteomyelitisacute [facility] Work Phone: Evaluation note* Diagnosis Onset Date Resolution Status Anemia of renal disease acuteCKD (chronic kidney disease) stage 5, GFR less than 15 ml/minacuteDiabetic foot ulcer with osteomyelitisacuteHypertensive kidney disease with chronic kidney disease stage VacuteMetabolic acidosisacuteOsteomyelitisacute Osteomyelitis of right footacuteType 2 diabetes mellitus with diabetic chronic kidney diseaseacuteUlcer of right foot with necrosis of boneacuteAnemia of renal diseaseacuteCKD (chronic kidney disease) stage 5, GFR less than 15 ml/minacute Diabetes mellitus with diabetic neuropathyacuteDiabetic foot ulcer with osteomyelitisacuteHypertensive kidney disease with chronic kidney disease stage VacuteOsteomyelitis of right footacuteSurgical wound presentacuteType 2 diabetes mellitus with diabetic chronic kidney diseaseacuteUlcer of right foot with necrosis of boneacuteAKI (acute kidney injury)acuteAnemiaacuteCKD (chronic kidney disease) stage 5, GFR less than 15 ml/minacuteDiabetes mellitus with foot ulceracuteFeveracuteHistory of feveracuteHypertensive kidney disease with chronic kidney disease stage VacuteMetabolic acidosisacuteOsteomyelitisacute Osteomyelitis of right footacuteReceiving intravenous antibiotic treatment at homeacuteRecent surgical procedure on lower extremityacuteSubjective feveracute Type 2 diabetes mellitus with diabetic chronic kidney diseaseacuteUlcer of right footacute [facility] Work Phone: Evaluation note* Diagnosis Onychomycosis- Primary Dermatophytosis of nail Corns and callosities 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/HCC) Type II or unspecified type diabetes mellitus with neurological manifestations, not stated as uncontrolled Peripheral vascular disease, unspecified ([facility]/HCC) Peripheral vascular disease, unspecified documented in this encounter [facility] HealthcareEvaluation note* Diagnosis Onychomycosis- Primary Dermatophytosis of nail Corns and callosities 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/HCC) Type II or unspecified type diabetes mellitus with neurological manifestations, not stated as uncontrolled Status post amputation of foot, right ([facility]) documented in this encounter [facility]* Diagnosis Peripheral vascular disease, unspecified (CMS/HCC)- Primary Peripheral vascular disease, unspecified Corns and callosities 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/HCC) Type II or unspecified type diabetes mellitus with neurological manifestations, not stated as uncontrolled Status post amputation of foot, right ([facility]) documented in this encounter [facility] HealthcareEvaluation note* Diagnosis Status post amputation of foot, right ([facility]/HCC)- Primary 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/HCC) Type II or unspecified type diabetes mellitus with neurological manifestations, not stated as uncontrolled Peripheral vascular disease, unspecified ([facility]) Peripheral vascular disease, unspecified documented in [facility] encounter [facility]* Diagnosis Onset Date Resolution Status Admit Date Loss of appetite acuteMay 2024 1:23pmNausea & vomitingacuteMay 2024 1:23pm [facility] Work Phone: Evaluation note* Diagnosis Status [...] right (HCC) documented in this encounter [facility]* Diagnosis Onychomycosis- Primary Dermatophytosis of nail Type II diabetes mellitus with neurological manifestations (HCC) Type II or unspecified type diabetes mellitus with neurological manifestations, not stated as uncontrolled Peripheral vascular disease, unspecified Status post amputation of foot, right (HCC) Corns and callosities documented in this encounter [facility] HealthcareHistory and physical note Author Salvador Alonso [facility] May 20, 2022 2:43pmNote Date/TimeMar2022 1:50pmGrab[place] [address] Hospitalist H&P Signed Patient: Gopal Yates Jr MR#: [id number] : 1965 Acct:[id number] Age/Sex: 56 / M Adm Date: 3 Loc: Room: [address] [place] [address] Type: ADM IN Attending Dr: Salvador Alonso MD Copies to: MD Douglas Boles MD~ HPI DATE OF EXAMINATION: 05/20/22 CHIEF COMPLAINT: osteomyelits HISTORY OF PRESENT ILLNESS: Mr. 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 [...] % (Auto) 3.3 % (.) 05/20/22 11:35 [place] % (Auto) 8.7 % (.) 05/20/22 11:35 Eos % (Auto) 0.2 % (.) 05/20/22 11:35 Baso % (Auto) 0.8 % (.) 05/20/22 11:35 Nucleat RBC Rel Count 0.1 /100 WBC (0-0.5) 05/20/22 11:35 Neut # (Auto) 8.0 x10E3/uL (1.8-7.7) H 05/20/22 11:35 Lymph # (Auto) 0.3 x10E3/uL (1.00-4.8) L 05/20/22 11:35 [place] # (Auto) 0.8 x10E3/uL (0.0-0.8) 05/20/22 11:35 [...] <Electronically signed by Salvador Alonso MD> 05/20/22 3712 [facility] Work Phone: Hiswrxi general Narrative - Reported* Type Description Date Medical History CHRONIC KIDNEY DISEASE STAGE 2 Medical HistoryDIABETES MELLITUS TYPE 2Medical HistoryPALPITATIONSMedical HistoryHYPOTHYROIDISMMedical HistoryEDEMAMedical HistoryANXIETY AND PANIC ATTACKSMedical HistoryHYPERTENSIONMedical HistoryHYPERLIPIDEMIAMedical History CHRONIC FATIGUE SYNDROMEMedical HistoryDYSPNEAMedical HistoryACUTE COMBINED SYSTOLIC AND DIASTOLIC HEART FAILURESurgical HistoryHEART STENT01/2020Surgical HistoryRIGHT SIDED HEART CATH05/20/2021Hospitalization HistoryHEART STENT, HEART CHRSGI52/2020Hospitalization HistoryHYPERTENSION WITH [facility] 08/2019 [employer] Other Hisotdh general Narrative - Reported* Type Description Date Medical History CHRONIC KIDNEY DISEASE STAGE 2 Medical HistoryDIABETES MELLITUS TYPE 2Medical HistoryPALPITATIONSMedical HistoryHYPOTHYROIDISMMedical HistoryEDEMAMedical HistoryANXIETY AND PANIC ATTACKSMedical HistoryHYPERTENSIONMedical HistoryHYPERLIPIDEMIAMedical History CHRONIC FATIGUE SYNDROMEMedical HistoryDYSPNEAMedical HistoryACUTE COMBINED SYSTOLIC AND DIASTOLIC HEART FAILUREMedical HistoryANEMIASurgical HistoryHEART STENT01/2020Surgical HistoryRIGHT SIDED HEART CATH3/1/2022Hospitalization HistoryHEART STENT, HEART RZJHWH36/2020Hospitalization HistoryHYPERTENSION WITH [facility]08/2019 [employer] Other Hospital Discharge instructions Additional Instructions Please leave dressing intact until you follow up with Dr. Griggs/Podiatry. [facility] Work Phone: Hospital Discharge instructions Additional [...] 150 mmHg-- MWF Monitor glucose levels as before.[facility] Work Phone: Hospital Discharge instructions No data available for this section [facility] General Surgery [place] Progress note Author Gopal Antony [facility] May 08, 2022 6:31pmNote Date/TimeFebruary 2022 6:26pm[place]ab[place] [address] Podiatry Progress Note Signed Patient: Gopal Yates Jr MR#: [id number] : 1965 Acct:[id number] Age/Sex: 56 / M Adm Date: 3 Loc: 4N Room: 7R9258-0 Type: DIS IN Attending Dr: Cornelio Simon [...] under at the wound care center in [place] and x-rays were noted to have osteomyelitis. Due to his kidney function he was sent to [facility] as there is a concern for need for inpatient dialysis which is not available at [place]. Patient statesthat he has had some episodes of fever [...] other complaints. Patient is status post partial fifthray amputation right by my partner Dr. Griggs [...] is doing very well and his incision remainswell coapted with wound edges pink and viable. Preliminarycultures are negative for pathogens thus far. The patient will be discharged onAugmentin 500 mg twice daily pending the outcome of those final cultures. The patient is advised to follow-up with my partner Dr. Griggs in a week or so and he willcontact her office to set this up. The patient states that he will likely return to Dr. Rivera for at the [place] wound care [facility] for the majority of his postop care. Dr. Griggs contacted Dr. Rivera to ensure that this is okay for the patient to follow-up postoperatively. Patient is advised to limit weightbearing activity is much as possible and wear his postop shoe for all weightbearingactivity. He is to keep his bandage clean and dry. Recommend daily or every other day dressing changes initially and the patient states he will set this up with the [place] [facility]. Patient is advised to call if he [...] By: <Electronically signed by HARRY Hardy> 05/08/22 1831 [facility] Work Phone: Progress note Author Salvador [facility] May 21, 2022 11:00pmNote Date/TimeMarch 2022 11:[address] [address] Hospitalist Progress Note Signed Patient: Gopal Yates MR#: [id number] : 1965 Acct:[id number] Age/Sex: 56 / M Adm Date: 3 Loc: 3T Room: [address] [place] [address] Type: ADM IN Attending Dr: Salvador Alonso [...] Tablet PO 05/21/23 08:59 Not Given DAILY [facility] A&P - Hospitalist Assessment/Plan (1) Osteomyelitis of [...] code Documented By: Salvador Alonso MD 05/21/22 7005 Signed By: <Electronically signed by Salvador Alonso MD> 05/21/22 2300 [facility] Work Phone: Progress note Author Eddy Griggs [facility] May 22, 2022 8:23amNote Date/TimeMar2022 8:18[place] [address] Podiatry Progress Note Signed Patient: Gopal Yates Jr MR#: [id number] : 1965 Acct:[id number] Age/Sex: 56 / M Adm Date: 3 Loc: Room: [address] [place] [address] Type: ADM IN Attending Dr: Salvador Alonso [...] very complicated patient with multiple comorbidities that arebrought him to this level of pathology and surgery and will also obviously impair healing. He is lucas y pleasant individual with diabetes mellitus, neuropathy and [...] obviously of the fifth toe and right fifthmetatarsal partial base is intact. Appears to be [...] foot. It has been very difficult getting [facility] secured for the patient due to his insurance. He again states that he would like to go to the [place] wound center inorder to have dressing changes, but Ipersonally called [...] <Electronically signed by HARRY Griggs> 05/22/22 0823 [facility] Work Phone: Progress note Author Ashutosh Thomas [facility] May 22, 2022 12:21pmNote Date/TimeMarch 2022 12:21pmKimberly [place] [id number] Infect. Disease Progress Note Signed Patient: Gopal Yates Jr MR#: [id number] : 1965 Acct:[id number] Age/Sex: 56 / M Adm Date: 3 Loc: Room: [address] [place] [address] Type: ADM IN Attending Dr: Salvador Alonso [...] 2 Mg Tablet) 2 mg PO DAILY [facility] Stop: 05/21/23 08:59 Last Admin: 05/22/22 08:34 Dose: 2 mg Carvedilol (Carvedilol 12.5 Mg Tablet) 37.5 mg PO BID.WITH.MEALS [facility] Stop: 05/20/23 16:59 Last Admin: 05/22/22 08:34 Dose: 37.5 mg Cyproheptadine HCl (Cyproheptadine 4 Mg Tablet) 4 mg PO DAILY [facility] Stop: 05/21/23 08:59 Last Admin: 05/22/22 08:33 Dose: 4 mg Ezetimibe (Ezetimibe 10 Mg Tablet) 10 mg PO DAILY [facility] Stop: 05/21/23 08:59 Last Admin: 05/22/22 08:34 Dose: 10 mg Hydralazine HCl (Hydralazine 50 Mg Tablet) 50 mg PO TID [facility] Stop: 05/20/23 13:59 Last Admin: 05/22/22 08:34 Dose: 50 mg Piperacillin Sod/Tazobactam Sod (Zosyn 2.25gm) 2.25 gm in 100 mls @ 200 mls/hr IV Q6H [facility] Last Admin: 05/22/22 11:31 Dose: 200 mls/hr Lactated Ringer's (Lactated Ringers) 1,000 mls @ 20 mls/hr IV .Q24H [facility] Stop: 05/22/22 13:54 Last Admin: 05/21/22 15:44 Dose: 20 mls/hr Vancomycin HCl 1.25 gm/ (Dextrose) 275 mls @ 183.333 mls/hr IV ONCE ONE Stop: 05/22/22 12:59 Insulin Glargine (Insulin Glargine 300 Units/3 Ml Insuln.Pen) 16 units SUBCUT QAM [facility] Stop: 05/21/23 08:59 Last Admin: 05/22/22 08:34 Dose: 16 units Isosorbide Dinitrate (Isosorbide Dinitrate 10 Mg Tablet) 10 mg PO TID [facility] Stop: 05/20/23 13:59 Last Admin: 05/22/22 08:34 Dose: 10 mg Levothyroxine Sodium (Levothyroxine 100 Mcg Tablet) 100 mcg PO DAILY@0630 [facility] Stop: 05/21/23 06:29 Last Admin: 05/22/22 06:05 Dose: 100 mcg Liothyronine Sodium (Liothyronine 5 Mcg Tablet) 10 mcg PO DAILY [facility] Stop: 05/21/23 08:59 Last Admin: 05/22/22 08:33 Dose: 10 mcg Multivitamins (Multivitamin 1 Tab Tablet) 1 tab PO DAILY [facility] Stop: 05/21/23 08:59 Last Admin: 05/22/22 08:33 Dose: 1 tab Nifedipine (Nifedipine Er.24hr 30 Mg Tab.Er.24) 30 mg PO BID [facility] Stop: 05/20/23 20:59 Last Admin: 05/22/22 08:34 Dose: 30 mg Ondansetron HCl (Ondansetron 4 Mg/2 Ml Vial) 4 mg IV-PUSH Q8H PRN PRN Reason: Nausea And Vomiting Stop: 05/20/23 13:39 Oxycodone HCl (Oxycodone Ir 5 Mg Tablet) 5 mg PO Q6H PRN PRN Reason: Pain Scale 4 - 7 Pantoprazole Sodium (Pantoprazole 40 Mg Tablet.Dr) 40 mg PO BID [facility] [facility] Stop: 05/20/23 20:59 Last Admin: 05/22/22 08:34 [...] however PICC line was just ordered and antibioticshave to be arranged for home. Documented By: Ashutosh Thomas MD 05/22/22 1218 Signed By: <Electronically signed by MD Ashutosh Thomas> 05/22/22 1221 [facility] Work Phone: Progress note Author [facility] May 22, 2022 1:15pmNote Date/TimeMarch 2022 1:16pm[place]ab[place] [address] Nephrology Progress Note Signed Patient: Gopal Yates Jr MR#: [id number] : 1965 Acct:[id number] Age/Sex: 56 / M Adm Date: 3 Loc: Room: [address] [place] [address] Type: ADM IN Attending Dr: Salvador Alonso MD Copies to: ~ Date of Service: 05/22/2022 Subjective Subjective Narrative: This is 56-year-old male patient with a past medical history of chronic kidney disease stage V fromdiabetic and hypertensive nephropathy follows with me in renal office. Coronary artery disease withhistory of myocardial infarction, heart failure with reduced ejection fraction, hyperlipidemia, insulin-dependent diabetes mellitus and hypothyroidism. Patient was referred to the hospital by his podiatric physician for worsening right lateral foot ulcer. Patient had recent partial fifth ray amputation of his right foot. Patient was discharged to finish antibiotics. Foot MRI from yesterday showededema in the head of the second metatarsal as well as the proximal and middle phalanx of the fourth digitsuspicious for osteomyelitis. Edema is also noted at the fourth transmetatarsaljunction suspicious for osteomyelitis. There is also marrow edema affecting thehead of the third metatarsal as wellas the proximal phalanx of the third digit [...] following with hematology clinic here in [facility] for CAROL injection. Patient missedher last appointment. Hemoglobin this morning 7.7 g [...] 2 Mg Tablet) 2 mg PO DAILY [facility] Stop: 05/21/23 08:59 Last Admin: 05/22/22 08:34 Dose: 2 mg Carvedilol (Carvedilol 12.5 Mg Tablet) 37.5 mg PO BID.WITH.MEALS [facility] Stop: 05/20/23 16:59 Last Admin: 05/22/22 08:34 Dose: 37.5 mg Cyproheptadine HCl (Cyproheptadine 4 Mg Tablet) 4 mg PO DAILY [facility] Stop: 05/21/23 08:59 Last Admin: 05/22/22 08:33 Dose: 4 mg Ezetimibe (Ezetimibe 10 Mg Tablet) 10 mg PO DAILY [facility] Stop: 05/21/23 08:59 Last Admin: 05/22/22 08:34 Dose: 10 mg Hydralazine HCl (Hydralazine 50 Mg Tablet) 50 mg PO TID [facility] Stop: 05/20/23 13:59 Last Admin: 05/22/22 08:34 Dose: 50 mg Piperacillin Sod/Tazobactam Sod (Zosyn 2.25gm) 2.25 gm in 100 mls @ 200 mls/hr IV Q6H [facility] Last Admin: 05/22/22 11:31 Dose: 200 mls/hr Lactated Ringer's (Lactated Ringers) 1,000 mls @ 20 mls/hr IV .Q24H [facility] Stop: 05/22/22 13:54 Last Admin: 05/21/22 15:44 Dose: 20 mls/hr Insulin Glargine (Insulin Glargine 300 Units/3 Ml Insuln.Pen) 16 units SUBCUT QAM [facility] Stop: 05/21/23 08:59 Last Admin: 05/22/22 08:34 Dose: 16 units Isosorbide Dinitrate (Isosorbide Dinitrate 10 Mg Tablet) 10 mg PO TID [facility] Stop: 05/20/23 13:59 Last Admin: 05/22/22 08:34 Dose: 10 mg Levothyroxine Sodium (Levothyroxine 100 Mcg Tablet) 100 mcg PO DAILY@0630 [facility] Stop: 05/21/23 06:29 Last Admin: 05/22/22 06:05 Dose: 100 mcg Liothyronine Sodium (Liothyronine 5 Mcg Tablet) 10 mcg PO DAILY [facility] Stop: 05/21/23 08:59 Last Admin: 05/22/22 08:33 [...] 40 Mg Tablet.Dr) 40 mg PO BID [facility] Stop: 05/20/23 20:59 Last Admin: 05/22/22 08:34 Dose: 40 mg Potassium Chloride (Potassium Chloride Er 20 Meq Tab.Er.Prt) 40 meq PO DAILY PRN PRN Reason: Hypokalemia Stop: 05/20/23 13:39 Sodium Bicarbonate (Sodium Bicarbonate 650 Mg Tablet) 1,300 mg PO BID [facility] Stop: 05/20/23 20:59 Last Admin: 05/22/22 08:33 [...] (1,000 Units) Tablet) 50 mcg PO DAILY [facility] Stop: 05/21/23 08:59 Last Admin: 05/22/22 08:33 [...] following with hematology clinic here in [facility]. Patient missed the last appointment. Patient [...] signed by Cristobal Butts MD> 05/22/22 1315 [facility] Work Phone: Progress note Author Salvador Alonso [facility] May 22, 2022 2:54pmNote Date/TimeMar2022 2:55pm[place] [address] Hospitalist Progress Note Signed Patient: Gopal Yates Jr MR#: [id number] : 1965 Acct:[id number] Age/Sex: 56 / M Adm Date: 3 Loc: Room: [address] [place] [address] Type: ADM IN Attending Dr: Salvador Alonso [...] By: <Electronically signed by Salvador Alonso MD> 05/22/224 [facility] Work Phone: Progress note Author Salvador Alonso [facility] May 23, 2022 10:32amNote Date/TimeMarch 2022 10:32[place] [address] Hospitalist Progress Note Signed Patient: Gopal Yates Jr MR#: [id number] : 1965 Acct:[id number] Age/Sex: 56 / M Adm Date: 3 Loc: Room: [address] [place] [address] Type: ADM IN Attending Dr: Salvador Alonso [...] Tablet PO 05/20/23 13:59 50 mg TID [facility] Administration Piperacillin Sod/Tazobactam Sod 2.25 gm in 100 mls @ 200 mls/hr 05/21/22 11:30 05/23/22 05:35 Zosyn 2.25gm IV 200 mls/hr Q6H [facility] Administration Insulin Glargine 16 units 05/21/22 09:00 05/23/22 09:38 Insulin Glargine 300 Units/3 Ml Insuln.Pen SUBCUT 05/21/23 08:59 16 units QAM [facility] Administration Isosorbide Dinitrate 10 mg 05/20/22 14:00 05/23/22 09:37 Isosorbide Dinitrate 10 Mg Tablet PO 05/20/23 13:59 10 mg TID [facility] Administration Levothyroxine Sodium 100 mcg 05/21/22 06:30 05/23/22 05:34 Levothyroxine 100 Mcg Tablet PO 05/21/23 06:29 100 mcg DAILY@0630 [facility] Administration Liothyronine Sodium 10 mcg 05/21/22 09:00 05/23/22 09:35 Liothyronine 5 Mcg Tablet PO 05/21/23 08:59 10 mcg DAILY [facility] Administration Multivitamins 1 tab 05/21/22 09:00 05/23/22 [...] signed by Salvador Alonso MD> 05/23/22 1032 [facility] Work Phone: Progress note Author Eddy Griggs [facility] May 23, 2022 10:48amNote Date/TimeMar2022 10:[address] [address] Podiatry Progress Note Signed Patient: Gopal Yates Jr MR#: [id number] : 1965 Acct:[id number] Age/Sex: 56 / M Adm Date: 3 Loc: 3T Room: [address] [place] [address] Type: ADM IN Attending Dr: Salvador Alonso [...] very complicated patient with multiple comorbidities that arebrought him to this level of pathology and surgery and will also obviously impair healing. He is lucas y pleasant individual with diabetes mellitus, neuropathy and [...] obviously of the fifth toe and right fifthmetatarsal partial base is intact. Appears to be [...] has been applied to the right foot. Hestates that he is scheduled for discharge on Wednesday once they are able to arrange visits at the infusion center. It has been very difficult getting home health care ordered for the patient due to hisinsurance and limited staffing. Patient states that he [...] <Electronically signed by HARRY Griggs> 05/23/22 1048 [facility] Work Phone: Progress note Author [facility] May 23, 2022 1:42pmNote Date/TimeMarch 2022 1:40pm[place] [address] Nephrology Progress Note Signed Patient: Gopal Yates Jr MR#: [id number] : 1965 Acct:[id number] Age/Sex: 56 / M Adm Date: 3 Loc: Room: [address] [place] [address] Type: ADM IN Attending Dr: Salvador Alonso MD Copies to: ~ Date of Service: 05/23/2022 Subjective Subjective Narrative: This is 56-year-old male patient with a past medical history of chronic kidney disease stage V fromdiabetic and hypertensive nephropathy follows with me in renal office. Coronary artery disease withhistory of myocardial infarction, heart failure with reduced ejection fraction, hyperlipidemia, insulin-dependent diabetes mellitus and hypothyroidism. Patient was referred to the hospital by his podiatric physician for worsening right lateral foot ulcer. Patient had recent partial fifth ray amputation of his right foot. Patient was discharged to finish antibiotics. Foot MRI from yesterday showededema in the head of the second metatarsal as well as the proximal and middle phalanx of the fourth digitsuspicious for osteomyelitis. Edema is also noted at the fourth transmetatarsaljunction suspicious for osteomyelitis. There is also marrow edema affecting thehead of the third metatarsal as wellas the proximal phalanx of the third digit [...] following with hematology clinic here in [facility] for CAROL injection. Patient missedher last appointment. Hemoglobin this morning 7.7 g [...] 2 Mg Tablet) 2 mg PO DAILY [facility] Stop: 05/21/23 08:59 Last Admin: 05/23/22 09:36 Dose: 2 mg Carvedilol (Carvedilol 12.5 Mg Tablet) 37.5 mg PO BID.WITH.MEALS [facility] Stop: 05/20/23 16:59 Last Admin: 05/23/22 09:35 Dose: 37.5 mg Cyproheptadine HCl (Cyproheptadine 4 Mg Tablet) 4 mg PO DAILY [facility] Stop: 05/21/23 08:59 Last Admin: 05/23/22 09:36 Dose: 4 mg Ezetimibe (Ezetimibe 10 Mg Tablet) 10 mg PO DAILY [facility] Stop: 05/21/23 08:59 Last Admin: 05/23/22 09:35 Dose: 10 mg Hydralazine HCl (Hydralazine 50 Mg Tablet) 50 mg PO TID [facility] Stop: 05/20/23 13:59 Last Admin: 05/23/22 09:36 Dose: 50 mg Piperacillin Sod/Tazobactam Sod (Zosyn 2.25gm) 2.25 gm in 100 mls @ 200 mls/hr IV Q6H [facility] Last Admin: 05/23/22 11:31 Dose: 200 mls/hr Insulin Glargine (Insulin Glargine 300 Units/3 Ml Insuln.Pen) 16 units SUBCUT QAM [facility] Stop: 05/21/23 08:59 Last Admin: 05/23/22 09:38 Dose: 16 units Isosorbide Dinitrate (Isosorbide Dinitrate 10 Mg Tablet) 10 mg PO TID [facility] Stop: 05/20/23 13:59 Last Admin: 05/23/22 09:37 Dose: 10 mg Levothyroxine Sodium (Levothyroxine 100 Mcg Tablet) 100 mcg PO DAILY@0630 [facility] Stop: 05/21/23 06:29 Last Admin: 05/23/22 05:34 Dose: 100 mcg Liothyronine Sodium (Liothyronine 5 Mcg Tablet) 10 mcg PO DAILY [facility] Stop: 05/21/23 08:59 Last Admin: 05/23/22 09:35 Dose: 10 mcg Multivitamins (Multivitamin 1 Tab Tablet) 1 tab PO DAILY [facility] Stop: 05/21/23 08:59 Last Admin: 05/23/22 09:36 Dose: 1 tab Nifedipine (Nifedipine Er.24hr 30 Mg Tab.Er.24) 30 mg PO BID [facility] Stop: 05/20/23 20:59 Last Admin: 05/23/22 09:36 Dose: 30 mg Ondansetron HCl (Ondansetron 4 Mg/2 Ml Vial) 4 mg IV-PUSH Q8H PRN PRN Reason: Nausea And Vomiting Stop: 05/20/23 13:39 Oxycodone HCl (Oxycodone Ir 5 Mg Tablet) 5 mg PO Q6H PRN PRN Reason: Pain Scale 4 - 7 Pantoprazole Sodium (Pantoprazole 40 Mg Tablet.Dr) 40 mg PO BID [facility] Stop: 05/20/23 20:59 Last Admin: 05/23/22 09:35 [...] controlled. Patient is on Bumex, Coreg, hydralazine, nifedipine.I will continue to monitor blood pressure and adjust medications as needed (4) Anemia of renal disease: Plan: Patient has anemia from CKD. [facility] Patient missed the last appointment. Patient received 1 unit of RBC May 21. Patient also was given 1 dose of Lqhxtj71,000 units May 21 . Continue to monitor H&H (5) Osteomyelitis of right foot: Plan: Right foot MRI findings as as in HPI. Patient currently covered by vancomycin and Zosyn IV. Status post amputation of the right fourth toe with I&D of right foot abscess with wound VAC placement.Pediatric service is following Documented By: Cristobal Butts MD 05/23/22 1339 Signed By: <Electronically signed by Cristobal Butts MD> 05/23/22 1342 [facility] Work Phone: Progress note Author Salvador Alonso [facility] May 24, 2022 12:12pmNote Date/TimeMar2022 12:12[place] [address] Hospitalist Progress Note Signed Patient: Gopal Yates Jr MR#: [id number] : 1965 Acct:[id number] Age/Sex: 56 / M Adm Date: 3 Loc: Room: [address] [place] [address] Type: ADM IN Attending Dr: Salvador Alonso [...] 11:49 Zosyn 2.25gm IV 200 mls/hr Q6H [facility] Administration Insulin Glargine 16 units 05/21/22 09:00 05/24/22 08:56 Insulin Glargine 300 Units/3 Ml Insuln.Pen SUBCUT 05/21/23 08:59 16 units QAM [facility] Administration Isosorbide Dinitrate 10 mg 05/20/22 14:00 05/24/22 08:55 Isosorbide Dinitrate 10 Mg Tablet PO 05/20/23 13:59 10 mg TID [facility] Administration Levothyroxine Sodium 100 mcg 05/21/22 06:30 05/24/22 05:44 Levothyroxine 100 Mcg Tablet PO 05/21/23 06:29 100 mcg DAILY@0630 [facility] Administration Liothyronine Sodium 10 mcg 05/21/22 09:00 05/24/22 08:56 Liothyronine 5 Mcg Tablet PO 05/21/23 08:59 10 mcg DAILY [facility] Administration Multivitamins 1 tab 05/21/22 09:00 05/24/22 08:56 Multivitamin 1 Tab Tablet PO 05/21/23 08:59 1 tab DAILY [facility] Administration Nifedipine 30 mg 05/20/22 21:00 05/24/22 [...] signed by Salvador Alonso MD> 05/24/22 1212 [facility] Work Phone: Progress note Author [facility] May 24, 2022 12:26pmNote Date/TimeMar2022 12:26pmKimberly [place] [id number] Nephrology Progress Note Signed Patient: Gopal Yates Jr MR#: [id number] : 1965 Acct:[id number] Age/Sex: 56 / M Adm Date: 3 Loc: Room: [address] [place] [address] Type: ADM IN Attending Dr: Salvador Alonso MD Copies to: ~ Date of Service: 05/24/2022 Subjective Subjective Narrative: This is 56-year-old male patient with a past medical history of chronic kidney disease stage V fromdiabetic and hypertensive nephropathy follows with me in renal office. Coronary artery disease withhistory of myocardial infarction, heart failure with reduced ejection fraction, hyperlipidemia, insulin-dependent diabetes mellitus and hypothyroidism. Patient was referred to the hospital by his podiatric physician for worsening right lateral foot ulcer. Patient had recent partial fifth ray amputation of his right foot. Patient was discharged to finish antibiotics. Foot MRI from yesterday showededema in the head of the second metatarsal as well as the proximal and middle phalanx of the fourth digitsuspicious for osteomyelitis. Edema is also noted at the fourth transmetatarsaljunction suspicious for osteomyelitis. There is also marrow edema affecting thehead of the third metatarsal as wellas the proximal phalanx of the third digit [...] following with hematology clinic here in [facility] for CAROL injection. Patient missedher last appointment. Hemoglobin this morning 7.7 g [...] 12.5 Mg Tablet) 37.5 mg PO BID.WITH.MEALS [facility] Stop: 05/20/23 16:59 Last Admin: 05/24/22 08:56 Dose: 37.5 mg Cyproheptadine HCl (Cyproheptadine 4 Mg Tablet) 4 mg PO BID [facility] Stop: 05/23/23 20:59 Last Admin: 05/24/22 08:55 Dose: 4 mg Ezetimibe (Ezetimibe 10 Mg Tablet) 10 mg PO DAILY [facility] Stop: 05/21/23 08:59 Last Admin: 05/24/22 08:56 Dose: 10 mg Hydralazine HCl (Hydralazine 50 Mg Tablet) 50 mg PO TID [facility] Stop: 05/20/23 13:59 Last Admin: 05/24/22 08:56 Dose: 50 mg Piperacillin Sod/Tazobactam Sod (Zosyn 2.25gm) 2.25 gm in 100 mls @ 200 mls/hr IV Q6H [facility] Last Admin: 05/24/22 11:49 Dose: 200 mls/hr Insulin Glargine (Insulin Glargine 300 Units/3 Ml Insuln.Pen) 16 units SUBCUT QAM [facility] Stop: 05/21/23 08:59 Last Admin: 05/24/22 08:56 Dose: 16 units Isosorbide Dinitrate (Isosorbide Dinitrate 10 Mg Tablet) 10 mg PO TID [facility] Stop: 05/20/23 13:59 Last Admin: 05/24/22 08:55 Dose: 10 mg Levothyroxine Sodium (Levothyroxine 100 Mcg Tablet) 100 mcg PO DAILY@0630 [facility] Stop: 05/21/23 06:29 Last Admin: 05/24/22 05:44 Dose: 100 mcg Liothyronine Sodium (Liothyronine 5 Mcg Tablet) 10 mcg PO DAILY [facility] Stop: 05/21/23 08:59 Last Admin: 05/24/22 08:56 Dose: 10 mcg Multivitamins (Multivitamin 1 Tab Tablet) 1 tab PO DAILY [facility] Stop: 05/21/23 08:59 Last Admin: 05/24/22 08:56 Dose: 1 tab Nifedipine (Nifedipine Er.24hr 30 Mg Tab.Er.24) 30 mg PO BID [facility] Stop: 05/20/23 20:59 Last Admin: 05/24/22 08:55 [...] 650 Mg Tablet) 1,300 mg PO BID [facility] Stop: 05/20/23 20:59 Last Admin: 05/24/22 08:56 [...] (1,000 Units) Tablet) 50 mcg PO DAILY [facility] Stop: 05/21/23 08:59 Last Admin: 05/24/22 08:56 [...] controlled. Patient is on Bumex, Coreg, hydralazine, nifedipine.I will continue to monitor blood pressure and adjust medications as needed (4) Anemia of renal disease: Plan: Patient has anemia from CKD. [facility] Patient missed the last appointment. Patient received 1 unit of RBC May 21. Patient also was given 1 dose of Crlalm20,000 units May 21 . Hemoglobin is 8 [...] <Electronically signed by Cristobal Butts MD> 05/24/22 7988 [facility] Work Phone: Progress note Author Yvonne Barboza [facility] May 25, 2022 11:28amNote Date/TimeMarch 2022 10:36amKim[place]ly [place] [id number] Nephrology Progress Note Signed Patient: Gopal Yates MR#: [id number] : 1965 Acct:[id number] Age/Sex: 56 / M Adm Date: 3 Loc: 3T Room: [address] [place] [address] Type: ADM IN Attending Dr: Scotty Kahn DO Copies to: ~ Date of Service: 05/25/2022 Subjective Subjective Narrative: This is 56-year-old male patient with a past medical history of chronic kidney disease stage V fromdiabetic and hypertensive nephropathy follows with me in renal office. Coronary artery disease withhistory of myocardial infarction, heart failure with reduced ejection fraction, hyperlipidemia, insulin-dependent diabetes mellitus and hypothyroidism. Patient was referred to the hospital by his podiatric physician for worsening right lateral foot ulcer. Patient had recent partial fifth ray amputation of his right foot. Patient was discharged to finish antibiotics. Foot MRI from yesterday showededema in the head of the second metatarsal as well as the proximal and middle phalanx of the fourth digitsuspicious for osteomyelitis. Edema is also noted at the fourth transmetatarsaljunction suspicious for osteomyelitis. There is also marrow edema affecting thehead of the third metatarsal as wellas the proximal phalanx of the third digit [...] following with hematology clinic here in [facility] for CAROL injection. Patient missedher last appointment. Hemoglobin this morning 7.7 g [...] that he likely will be discharged home today.He is scheduled to see Dr. 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, 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 Musculoskeletal: No joint [...] 2 Mg Tablet) 2 mg PO DAILY [facility] Stop: 05/21/23 08:59 Last Admin: 05/25/22 08:30 Dose: 2 mg Carvedilol (Carvedilol 12.5 Mg Tablet) 37.5 mg PO BID.WITH.MEALS [facility] Stop: 05/20/23 16:59 Last Admin: 05/25/22 08:30 Dose: 37.5 mg Cyproheptadine HCl (Cyproheptadine 4 Mg Tablet) 4 mg PO BID [facility] Stop: 05/23/23 20:59 Last Admin: 05/25/22 08:30 Dose: 4 mg Ezetimibe (Ezetimibe 10 Mg Tablet) 10 mg PO DAILY [facility] Stop: 05/21/23 08:59 Last Admin: 05/25/22 08:30 Dose: 10 mg Hydralazine HCl (Hydralazine 50 Mg Tablet) 50 mg PO TID [facility] Stop: 05/20/23 13:59 Last Admin: 05/25/22 08:30 Dose: 50 mg Piperacillin Sod/Tazobactam Sod (Zosyn 2.25gm) 2.25 gm in 100 mls @ 200 mls/hr IV Q6H [facility] Last Admin: 05/25/22 05:05 Dose: 200 mls/hr Insulin Glargine (Insulin Glargine 300 Units/3 Ml Insuln.Pen) 16 units SUBCUT QAM [facility] Stop: 05/21/23 08:59 Last Admin: 05/25/22 08:31 Dose: 16 units Isosorbide Dinitrate (Isosorbide Dinitrate 10 Mg Tablet) 10 mg PO TID [facility] Stop: 05/20/23 13:59 Last Admin: 05/25/22 08:30 Dose: 10 mg Levothyroxine Sodium (Levothyroxine 100 Mcg Tablet) 100 mcg PO DAILY@0630 [facility] Stop: 05/21/23 06:29 Last Admin: 05/25/22 05:34 Dose: Not Given Liothyronine Sodium (Liothyronine 5 Mcg Tablet) 10 mcg PO DAILY [facility] Stop: 05/21/23 08:59 Last Admin: 05/25/22 08:31 Dose: 10 mcg Multivitamins (Multivitamin 1 Tab Tablet) 1 tab PO DAILY [facility] Stop: 05/21/23 08:59 Last Admin: 05/25/22 08:31 Dose: 1 tab Nifedipine (Nifedipine Er.24hr 30 Mg Tab.Er.24) 30 mg PO BID [facility] Stop: 05/20/23 20:59 Last Admin: 05/25/22 08:30 [...] panel while he is on antibiotics. Please keepvancomycin level between 15 and 20 to avoid tubular injury. Avoid NSAIDs for pain control. Avoid IVcontrast. Continue oral sodium bicarb. Check renal function [...] controlled. Patient is on Bumex, Coreg, hydralazine, nifedipine.I will continue to monitor blood pressure and adjust medications as needed (4) Anemia of renal disease: Plan: Patient has anemia from CKD. [facility] Patient missed the last appointment. Patient received 1 unit of RBC May 21. Patient also was given 1 dose of Fwmxjj15,000 units May 21 . No need for RBC transfusion. Continue tomonitor H&H (5) Osteomyelitis of right foot: Plan: [...] signed by Yvonne Barboza MD> 05/25/22 1128 [facility] Work Phone: Progress note Author Ashutosh Thomas [facility] May 25, 2022 11:21amNote Date/TimeMarch 2022 11:22[place] [address] Infect. Disease Progress Note Signed Patient: Gopal Yates Jr MR#: [id number] : 1965 Acct:[id number] Age/Sex: 56 / M Adm Date: 3 Loc: Room: [address] [place] [address] Type: ADM IN Attending Dr: Scotty Kahn [...] 2 Mg Tablet) 2 mg PO DAILY [facility] Stop: 05/21/23 08:59 Last Admin: 05/25/22 08:30 Dose: 2 mg Carvedilol (Carvedilol 12.5 Mg Tablet) 37.5 mg PO BID.WITH.MEALS [facility] Stop: 05/20/23 16:59 Last Admin: 05/25/22 08:30 Dose: 37.5 mg Cyproheptadine HCl (Cyproheptadine 4 Mg Tablet) 4 mg PO BID [facility] Stop: 05/23/23 20:59 Last Admin: 05/25/22 08:30 Dose: 4 mg Ezetimibe (Ezetimibe 10 Mg Tablet) 10 mg PO DAILY [facility] Stop: 05/21/23 08:59 Last Admin: 05/25/22 08:30 Dose: 10 mg Hydralazine HCl (Hydralazine 50 Mg Tablet) 50 mg PO TID [facility] Stop: 05/20/23 13:59 Last Admin: 05/25/22 08:30 Dose: 50 mg Piperacillin Sod/Tazobactam Sod (Zosyn 2.25gm) 2.25 gm in 100 mls @ 200 mls/hr IV Q6H [facility] Last Admin: 05/25/22 11:06 Dose: 200 mls/hr Insulin Glargine (Insulin Glargine 300 Units/3 Ml Insuln.Pen) 16 units SUBCUT QAM [facility] Stop: 05/21/23 08:59 Last Admin: 05/25/22 08:31 Dose: 16 units Isosorbide Dinitrate (Isosorbide Dinitrate 10 Mg Tablet) 10 mg PO TID [facility] Stop: 05/20/23 13:59 Last Admin: 03/06/23 08:30 Dose: 10 mg Levothyroxine Sodium (Levothyroxine 100 Mcg Tablet) 100 mcg PO DAILY@0630 [facility] Stop: 05/21/23 06:29 Last Admin: 05/25/22 05:34 Dose: Not Given Liothyronine Sodium (Liothyronine 5 Mcg Tablet) 10 mcg PO DAILY [facility] Stop: 05/21/23 08:59 Last Admin: 05/25/22 08:31 Dose: 10 mcg Multivitamins (Multivitamin 1 Tab Tablet) 1 tab PO DAILY [facility] Stop: 05/21/23 08:59 Last Admin: 05/25/22 08:31 Dose: 1 tab Nifedipine (Nifedipine Er.24hr 30 Mg Tab.Er.24) 30 mg PO BID [facility] Stop: 05/20/23 20:59 Last Admin: 05/25/22 08:30 Dose: 30 mg Ondansetron HCl (Ondansetron 4 Mg/2 Ml Vial) 4 mg IV-PUSH Q8H PRN PRN Reason: Nausea And Vomiting Stop: 05/20/23 13:39 Oxycodone HCl (Oxycodone Ir 5 Mg Tablet) 5 mg PO Q6H PRN PRN Reason: Pain Scale 4 - 7 Pantoprazole Sodium (Pantoprazole 40 Mg Tablet.Dr) 40 mg PO BID [facility] Stop: 05/20/23 20:59 Last Admin: 05/25/22 08:31 Dose: 40 mg Potassium Chloride (Potassium Chloride Er 20 Meq Tab.Er.Prt) 40 meq PO DAILY PRN PRN Reason: Hypokalemia Stop: 05/20/23 13:39 Sodium Bicarbonate (Sodium Bicarbonate 650 Mg Tablet) 1,300 mg PO BID [facility] Stop: 05/20/23 20:59 Last Admin: 05/25/22 08:30 [...] (1,000 Units) Tablet) 50 mcg PO DAILY [facility] Stop: 05/21/23 08:59 Last Admin: 05/25/22 08:30 [...] signed by MD Ashutosh Thomas> 05/25/22 [address] [facility] Work Phone: Progress note No data available for this section [facility] General Surgery [place] Summary Purpose Family History No Family History Records Found Relationship Condition Age at Onset Recorded Date/T frankie father Myocardial infarction Unknown Heart failureUnknownNot SpecifiedMalignant neoplasm of breastUnknown Relationship Condition Age at Onset Recorded Date/T frankie father Heart failure Unknown Myocardial infarctionUnknownDiabetes mellitusUnknownNot SpecifiedMalignant neoplasm of breastUnknown Relationship Condition Age at Onset Recorded Date/T frankie father Heart failure Unknown Myocardial infarctionUnknownDiabetes mellitusUnknownmotherMalignant neoplasm of breastUnknowndaughterCrohn's diseaseUnknownfatherHypertensionUnknownDeceased UnknownHeart diseaseUnknownFamily history of mental disorderUnknownmother Malignant neoplasmUnknown Advance Directives No Advanced Directives Records Found Advance Directive Response Recorded Date/ Time Advance Directives No October 04 1:17pm Advance Directive Response Recorded Date/ Time Advance Directives No October 04 12:17pm Medications Administered Section Medication OrderMAR ActionAction DateDoseRateSite Darbepoetin Farhat In Polysorbat 200 mcg injection (ARANESP) 200 mcg, SUBCUTANEOUS, ONCE, 1 dose, On Wed10/22/21 at 1400, Protect from light REFRIGERATE Given10/22/2021 1:54 PM [id number] mcgArm, RightMedication OrderMAR ActionAction DateDoseRateSite Darbepoetin Farhat In Polysorbat 200 mcg injection (ARANESP) 200 mcg, SUBCUTANEOUS, ONCE, 1 dose, On Wed11/19/21 at 1400, Protect from light REFRIGERATE Given11/19/2021 2:01 PM [id number] mcgArm, RightMedication OrderMAR ActionAction DateDoseRateSite Darbepoetin Farhat In Polysorbat 200 mcg injection (ARANESP) 200 mcg, SUBCUTANEOUS, ONCE, 1 dose, On Wed02/04/22 at 1400, Protect from light REFRIGERATE Given02/04/2022 2:08 PM [id number] mcgArm, RightMedication OrderMAR ActionAction DateDoseRateSite Darbepoetin Farhat In Polysorbat 200 mcg injection (ARANESP) 200 mcg, SUBCUTANEOUS, ONCE, 1 dose, On Wed02/18/22 at 1430, Protect from light REFRIGERATE Given02/18/2022 2:22 PM [id number] mcgArm, RightMedication OrderMAR ActionAction DateDoseRateSite Darbepoetin Farhat In Polysorbat 200 mcg injection (ARANESP) 200 mcg, SUBCUTANEOUS, ONCE, 1 dose, On Wed03/18/22 at 1500, Protect from light REFRIGERATE Given03/18/2022 2:42 PM [id number] mcgArm, RightMedication OrderMAR ActionAction DateDoseRateSite Darbepoetin Farhat In Polysorbat 200 mcg injection (ARANESP) 200 mcg, SUBCUTANEOUS, ONCE, 1 dose, On Wed04/16/22 at 1530, Protect from light REFRIGERATE Given04/16/2022 3:15 PM [id number] mcgArm, Right Chief Complaint and Reason for Visit [...] R foot problem, sent by dr. moran woundsReason for VisitAnemia of renal disease CKD (chronic kidney disease) [...] R foot problem, sent by dr. moran woundsReason for VisitAnemia of renal disease CKD (chronic kidney disease) [...] by L97.516 open wounds Right foot wound ESRDReason for VisitAnemia of renal disease CKD (chronic kidney disease) [...] dr. Jaramillo51[place] open wounds ESRD Right foot woundReason for VisitAnemia of renal disease CKD (chronic kidney disease) [...] Jaramillo516 open wounds ESRD Right foot wound feverReason for VisitAnemia of renal disease CKD (chronic kidney disease) [...] sent by dr. Jaramillo516 open wounds ESRD L97.516 fever Right foot woundReason for VisitAnemia of renal disease CKD (chronic kidney disease) [...] and content) DATE CREATED AUTHOR 05/26/2021 [facility] DATE CREATED AUTHOR AUTHOR'S ORGANIZ ATION 06/02/2022 [facility] DATE CREATED AUTHOR AUTHOR'S ORGANIZ ATION 07/14/2022 [facility] DATE CREATED AUTHOR AUTHOR'S ORGANIZ ATION 05/12/2023 [facility] DATE CREATED AUTHOR AUTHOR'S ORGANIZ ATION 11/04/2023 [facility] DATE CREATED AUTHOR AUTHOR'S ORGANIZ ATION 12/12/2024 [facility] DATE CREATED AUTHOR AUTHOR'S ORGANIZ ATION 01/22/2025 [facility] REASON FOR VISIT (unrecogniz ed section and content) ReasonCommentsEstablished PatientSpecialtyDiagnoses / ProceduresReferred By ContactReferred To Contact Diagnoses Anemia due to stage 3b chronic kidney disease (HCC) Procedures DARBEPOETIN FARHAT, NON-ESRD Conrad Rojas MD [address] [place] [address] [place] [address] Chito Treat Rah [address] [place] [address] Referral IDStatusReasonStart DateExpiration DateVisits RequestedVisits [id number]/30/[id number] Kidney Disease2 month follow upReasonCommentsInfusionsReasonCommentsAnemia2 week follow upReasonCommentsAnemia4 week follow upReferral IDStatusReasonStart Date Expiration DateVisits RequestedVisits [id number] IDStatusReasonStart DateExpiration DateVisits Requested Visits [id number] Review/[id number] IDStatus ReasonStart DateExpiration DateVisits RequestedVisits [id number] Authorized/[id number] IDStatusReasonStart DateExpiration Date Visits RequestedVisits [id number]/30/20223/[id number] CommentsAnemiaFollow upReasonCommentsPatient UpdateAppointmentReasonCommentsDM Foot CarePCP: Dr. 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 is a 59 y.o. male who presents for DM shoe measure. (PCP: Dr. Juárez LV 07/2023, NV: 07/20/24, A1C: 6.9, BS: doesn't check,SS: 12).ReasonCommentsShoe pick upGopal Yates 59yo Presents for shoe bead picker. Patient received [address] Idalia faulkner and 1 pair Custom inserts. 12W. BS [address] Marquita 06/2024ReasonOnset DateCommentsAdvice Only10/09/2024Keeping DM Shoes Source Comments (unrecognize d section and content) In the event this informatio n is protected by the Federal Confidentiality of Alcohol and Drug Abuse Patient Records regulations: The Federal rules restrict any use of the information to criminally investigate or prosecute any alcohol or drug abuse patient.[facility] RehabilitationIn the event this information is protected by the Federal Confidentiality of Alcohol and Drug Abuse Patient Records regulations: The Federal rules restrict any use of the information to criminally investigate or prosecute any alcohol or drug abuse patient.[facility] RehabilitationIn the event this information is protected by the Federal Confidentiality of Alcohol and Drug Abuse Patient Records regulations: The Federal rules restrict any use of the information to criminally investigate or prosecute any alcohol or drug abuse patient.[facility] RehabilitationIn the event this information is protected by the Federal Confidentiality of Alcohol and Drug Abuse Patient Records regulations: The Federal rules restrict any use of the information to criminally investigate or prosecute any alcohol or drug abuse patient.[facility] RehabilitationIn the event this information is protected by the Federal Confidentiality of Alcohol and Drug Abuse Patient Records regulations: The Federal rules restrict any use of the information to criminally investigate or prosecute any alcohol or drug abuse patient.[facility] RehabilitationIn the event this information is protected by the Federal Confidentiality of Alcohol and Drug Abuse Patient Records regulations: The Federal rules restrict any use of the information to criminally investigate or prosecute any alcohol or drug abuse patient.[facility] RehabilitationIn the event this information is protected by the Federal Confidentiality of Alcohol and Drug Abuse Patient Records regulations: The Federal rules restrict any use of the information to criminally investigate or prosecute any alcohol or drug abuse patient.[facility] RehabilitationIn the event this information is protected by the Federal Confidentiality of Alcohol and Drug Abuse Patient Records regulations: The Federal rules restrict any use of the information to criminally investigate or prosecute any alcohol or drug abuse patient.[facility] RehabilitationIn the event this information is protected by the Federal Confidentiality of Alcohol and Drug Abuse Patient Records regulations: The Federal rules restrict any use of the information to criminally investigate or prosecute any alcohol or drug abuse patient.[facility] RehabilitationIn the event this information is protected by the Federal Confidentiality of Alcohol and Drug Abuse Patient Records regulations: The Federal rules restrict any use of the information to criminally investigate or prosecute any alcohol or drug abuse patient.[facility] RehabilitationIn the event this information is protected by the Federal Confidentiality of Alcohol and Drug Abuse Patient Records regulations: The Federal rules restrict any use of the information to criminally investigate or prosecute any alcohol or drug abuse patient.[facility] RehabilitationIn the event this information is protected by the Federal Confidentiality of Alcohol and Drug Abuse Patient Records regulations: The Federal rules restrict any use of the information to criminally investigate or prosecute any alcohol or drug abuse patient.[facility] RehabilitationIn the event this information is protected by the Federal Confidentiality of Alcohol and Drug Abuse Patient Records regulations: The Federal rules restrict any use of the information to criminally investigate or prosecute any alcohol or drug abuse patient.[facility] RehabilitationIn the event this information is protected by the Federal Confidentiality of Alcohol and Drug Abuse Patient Records regulations: The Federal rules restrict any use of the information to criminally investigate or prosecute any alcohol or drug abuse patient.[facility] RehabilitationIn the event this information is protected by the Federal Confidentiality of Alcohol and Drug Abuse Patient Records regulations: The Federal rules restrict any use of the information to criminally investigate or prosecute any alcohol or drug abuse patient.[facility] Care Teams (unrecognized sec tion and content) Team Status: Active Member Role Status Juancarlos Juárez MD Primary Care Provider Active Team Status: Active Member Role Status Juancarlos Juárez MD Primary Care Provider Active Start: June 12, 2024 Jovani Kraus ProviderActiveStart: June 12, 2024 Team Status: Inactive Member Role Status Juancarlos Juárez MD Primary Care Provider Active Start: August 10, 2024 End: August 10Jovani Christensen ProviderActiveStart: August 10, 2024 End: August 10, 2024 Team Status: Inactive Member Role Status Juancarlos Juárez MD Primary Care Provider Active Jovani Godoy ProviderActive Team Status: Inactive Member Role Status Juancarlos Juárez MD Primary Care Provider Active Eddy Griggs DPMAttending ProviderActive Team Status: Inactive Member Role Status Juancarlos Juárez MD Primary Care Provider Active Gopal Larsen MDEmergency ProviderActiveSalvador Alonso , MDAdmit ProviderActive Ashutosh Thomas MDOther ProviderActiveCristobal Butts MDOther ProviderActive Primo Luis , DPMOther ProviderActiveScotty Kahn DOAttending ProviderActive Team Status: Inactive Member Role Status Juancarlos Juárez MD Primary Care Provider Active Shankar Oglesby ProviderActiveCornelio Simon , MDAdmit Provider, Attending ProviderActiveAshutosh Thomas MDOther ProviderActiveYvonne Barboza MDOther ProviderActiveCaITALIA CrouchMOther ProviderActiveSohan Kellogg MDOther ProviderActive Team Status: Active Member Role Status Dates Douglas Juárez MD Primary Care Provider Active Eddy Griggs , ITALIAMAttending ProviderActiveTeam MemberRelationshipSpecialty Start DateEnd Date Douglas Juárez MD [address] [place] [address] [facility]Team MemberRelationshipSpecialtyStart DateEnd Date Douglas Juárez MD [address] [place] [address] PCP - [facility] Practice09/29/21Team MemberRelationshipSpecialtyStart DateEnd Date Douglas Juárez MD [address] [place] [address] PCP - [facility] Practice09/29/21Team MemberRelationshipSpecialtyStart DateEnd Date Douglas Juárez MD [address] [place] [address] [facility]/21Team MemberRelationshipSpecialtyStart DateEnd Date Douglas Juárez MD [address] [place] [address] [facility]/21 Team Status: Inactive Member Role Status Dates Douglas Juárez MD Primary Care Provider Active Jovani Mcdaniel ProviderActiveTeam MemberRelationshipSpecialtyStart DateEnd Date Douglas Juárez MD [address] [place] [address] PCP - [facility]09/29/21Team MemberRelationshipSpecialtyStart DateEnd Date Douglas Juárez MD [address] [place] [address] PCP - [facility]09/29/21Team MemberRelationshipSpecialtyStart DateEnd Date Douglas Juárez MD [address] [place] [address] PCP - [facility] Medicine09/29/21Team MemberRelationshipSpecialtyStart DateEnd Date Douglas Juárez MD [address] [place] [address] PCP - [facility]09/29/21Team MemberRelationshipSpecialtyStart DateEnd Date Douglas Juárez MD [address] [place] [address] [facility] - [facility]/21Team MemberRelationshipSpecialtyStart DateEnd Date Douglas Juárez MD [address] [place] [address] PCP - [facility]09/29/21Team MemberRelationshipSpecialtyStart DateEnd Date Douglas Juárez MD [address] [place] [address] PCP - [facility]09/29/21 Team Status: Active Member Role Status Juancarlos Juárez MD Primary Care Provider Active Shankar Oglesby ProviderActiveCornelio Simon MDAdmit Provider, Attending ProviderActive Team Status: Active Member Role Status Juancarlos Juárez MD Primary Care Provider Active Gopal Larsen MDEmergency ProviderActiveAnoRegan MDAdmit Provider, Attending ProviderActiveAshutosh Thomas MDOther ProviderActiveCristobal Butts MD Other ProviderActiveEugene Lucila Luis , DPMOther ProviderActiveTeam Member RelationshipSpecialtyStart DateEnd Date Douglas Juárez MD PCP - GeneralFamily Medicine09/29/21 Team Status: Active Member Role Status Dates Douglas Juárez MD Primary Care Provider Active Gopal Larsen MDEmergency ProviderActiveCaleb Baconomar , MDAdmit Provider, Attending ProviderActive Team Status: Inactive Member Role Status Dates Douglas Juárez MD Primary Care Provider Active Gopal Larsen MDEmemarisolgency ProviderActiveCaleb Marie Daromar , MDAdmit Provider ActiveAshutosh Thomas MDOther ProviderActiveAzmario Butts MDOther Provider ActiveCassdavid Griggs , DPMOther ProviderActiveShsher Pope , DOAttkaushal ProviderActiveTeam MemberRelationshipSpecialtyStart DateEnd Date Douglas Juárez MD [address] [place] [address] PCP - Generalmily Medicine08/12/22Team MemberRelationshipSpecialtyStart DateEnd Date Douglas Juárez MD [address] [place] [address] PCP - GeneralFamily Medicine08/12/22Team MemberRelationshipSpecialtyStart DateEnd Date Douglas Juárez MD [address] [place] [address] PCP - GeneralFamily Medicine08/12/22Team MemberRelationshipSpecialtyStart DateEnd Date Douglas Juárez MD [address] [place] [address] PCP - GeneralFamily Medicine08/12/22Team MemberRelationshipSpecialtyStart DateEnd Date Douglas Juárez MD [address] [place] [facility] [place] [address] [facility] - [facility]08/12/22Te MemberRelationshipSpecialtyStart DateEnd Date Douglas Juárez MD [address] [place] [facility] [place] [address] PCP - [facility]08/12/22Te MemberRelationshipSpecialtyStart DateEnd Date Douglas Juárez MD [address] [place] [facility] [place] [address] PCP - [facility]08/12/22Te MemberRelationshipSpecialtyStart DateEnd Date Douglas Juárez MD [address] [place] [facility] [place] [address] PCP - [facility]08/12/22Te MemberRelationshipSpecialtyStart DateEnd Date Douglas Juárez MD [address] [place] [facility] [place] [address] [facility] - [facility]08/12/22 Goals (unrecognized section and content) Goals may [...] BE BASED ON THE PRIMARY CLINICAL RECORDS. [employer] [facility]. provides no warranty or guarantee of the accuracy or completeness of information in this document.
== END 2025-02-12 12:53 | disposition home or self-care (01) ==
LOC: CARD 12:52
PROVIDERS: PCP Family Medicine
DX: I50.22 Chronic systolic (congestive) heart failure (principal); I25.10 Atherosclerotic heart disease of native coronary artery without angina pectoris
CPT/HCPCS: 93306; 93356